=== PATIENT | female | born 1940 | race Caucasian/White ===

== ENCOUNTER 2025-01-17 17:54 | Emergency (ER) | payer MEDICARE, SELFPAY ==
[2025-01-17 17:55] VITALS: BP 151/77; PULSE 89; RESP 16; TEMP 37; O2SAT 100
[2025-01-17 17:59] VITALS: BP 151/77; PULSE 89; RESP 16; TEMP 37; O2SAT 100
--- NOTE | 2025-01-17 18:07 | CT_ITS ---
EXAM: BRAIN/HEAD WITHOUT CONTRAST CLINICAL HISTORY: Confusion COMPARISON: None. TECHNIQUE: Noncontrast images of the head with multiplanar reconstructions. Dose reduction techniques were used including intermediate exposure control (AEC),iterative reconstruction technique, and/or mA and/or KV dose adjustments based on patient's size. FINDINGS: CT HEAD FINDINGS: No acute intracranial hemorrhage, mass, mass effect, midline shift or pathologic extra-axial fluid collection. Nonspecific periventricular white matter changes are noted No hydrocephalus. Age- appropriate cerebral volume and white matter. Visualized paranasal sinuses and mastoid air cells are clear. The calvarium is grossly intact. CT/Brain/Head without Contrast IMPRESSION: 1. No acute intracranial abnormality. 2. Age-appropriate volume loss and remote small vessel ischemic changes Reading Location: [facility]
--- NOTE | 2025-01-17 18:37 | EX.ED.DYSGE1 ---
HPI <ANA Chang - Last Filed: 01/17/25 19:39> History of Present Illness Chief Complaint: Confusion Narrative Narrative: Patient is an 84-year-old female with history of chronic back pain, hypertension who does self cath herself 3-4 times per day. Patient is been doing this for greater than 6 years. Patient's daughter thought the patient was more confused today, was more agitated, and they are concerned for a UTI. Patient denies any specific pain, denies any fever chills nausea or vomiting. PFSH <ANA Chang - Last Filed: 01/17/25 19:39> [facility] Medical History (Updated 01/17/25 @ 19:37 by ANA Chang) Self-catheterizes urinary bladder Hypertension Back pain Home Medications ?Medication ?Instructions ?Recorded ?Last Taken ?Type cephalexin 500 mg capsule 500 mg PO TID 7 days #21 caps 01/17/25 Unknown Rx Allergy/AdvReac Type Severity Reaction Status Date / Time No Known Allergies Allergy Verified 01/17/25 17:55 Social History Smoking Status: Unknown if ever smoked ROS <ANA Chang - Last Filed: 01/17/25 19:39> ROS ED ROS Narrative Constitutional: Negative for fever, chills, weight loss, weakness Eyes: Negative for vision loss, vision change, double vision ENT: Negative for any sore throat, ear pain, congestion Cardiovascular: Negative for any chest pain, tightness, palpitations Respiratory: Negative for any cough, sputum production, hemoptysis, dyspnea, dyspnea on exertion, orthopnea Gastrointestinal: Negative for any abdominal pain, nausea, vomiting, diarrhea, constipation, blood in stool, blood in vomit : Negative for any urinary frequency, dysuria, retention, blood in urine Muscle skeletal: Negative for any neck pain, back pain Neurological: Negative for any headache, syncope, dizziness. Positive for more confusion Skin: Negative for any rashes, itching, abrasions, lacerations Psychiatric: Negative for any depression, anxiety, stress, suicidal ideation, homicidal ideation Hematologic: Negative for any excessive bruising, easy bleeding EXAM <ANA Chang - Last Filed: 01/17/25 19:39> Physical Exam Narrative Exam Narrative: Vital signs reviewed. Patient is alert orient x 4, patient is in no distress. HEET: Head normocephalic atraumatic, TMs clear bilaterally. Posterior pharynx is clear, moist mucous membranes. Nares clear bilaterally. Neck: Supple with no lymphadenopathy or tenderness. No signs of meningismus. Cardiac: Regular rate and rhythm no murmurs gallops or rubs, equal peripheral pulses bilaterally. Respiratory: Lungs clear to auscultation bilaterally. No chest tenderness. Abdomen: Soft, nontender, nondistended. No abdominal bruit or pulsatile masses. No hepatosplenomegaly Extremities: No peripheral edema, no signs of gross trauma or deformity. Active full range of motion of all extremities. Neuro: Cranial nerves II through XII intact, no focal neurological deficits. NIH stroke scale 0 Skin: Clean dry and intact with no rash, purpura, petechiae, vesicles or pustules. Backs/flank: No CVA tenderness, no midline spinal tenderness, no deformity. Psych: Normal mood and affect. No SI, HI or acute psychosis. Const Vital Signs: 01/17/25 17:55 01/17/25 17:59 01/17/25 18:59 Temperature 98.6 F 98.6 F 98.6 F Temperature Source Oral Oral Oral Pulse Rate 89 89 83 Respiratory Rate 16 16 16 Blood Pressure 151/77 H 151/77 H 145/65 H Blood Pressure Mean 101 101 91 Pulse Ox 100 100 97 Oxygen Delivery Method Room Air Room Air Room Air <Dr. Vadim Florence DO - Last Filed: 01/17/25 19:55> Physical Exam Const Vital Signs: 01/17/25 17:55 01/17/25 17:59 01/17/25 18:59 Temperature 98.6 F 98.6 F 98.6 F Temperature Source Oral Oral Oral Pulse Rate 89 89 83 Respiratory Rate 16 16 16 Blood Pressure 151/77 H 151/77 H 145/65 H Blood Pressure Mean 101 101 91 Pulse Ox 100 100 97 Oxygen Delivery Method Room Air Room Air Room Air [facility] <ANA Chang - Last Filed: 01/17/25 19:39> [facility] Lab Data Labs: Laboratory Results - last 24 hr 01/17/25 01/17/25 18:35 18:57 WBC 13.0 H RBC 4.11 L Hgb 12.3 Hct 35.9 L MCV 87.3 MCH 29.9 MCHC 34.3 RDW Std Deviation 42.1 RDW Coeff of Leslie 13.3 Plt Count 169 MPV 10.5 Immature Gran % (Auto) 0.400 Neut % (Auto) 79.1 H Lymph % (Auto) 11.0 L King % (Auto) 8.1 Eos % (Auto) 1.0 Baso % (Auto) 0.4 Absolute Neuts (auto) 10.3 H Absolute Lymphs (auto) 1.42 Nucleated RBC % 0 Sodium 140 Potassium 3.9 Chloride Direct 103 Carbon Dioxide 25.5 Anion Gap 12 BUN 19 Creatinine 0.92 Est GFR (MDRD) Non-Af 61 BUN/Creatinine Ratio 20.5 H Glucose 113 H Calcium 9.7 Total Bilirubin 1.24 AST 19 ALT 9 Alkaline Phosphatase 75 Total Protein 7.2 Albumin 4.2 Globulin 3.0 Albumin/Globulin Ratio 1.4 Urine Color Yellow Urine Clarity Sl. Cloudy Urine pH 6.5 Ur Specific [place] 1.015 Urine Protein Negative Urine Glucose (UA) Normal Urine Ketones Negative Urine Occult Blood 25 H Urine Nitrite Positive H Urine Bilirubin Negative Urine Urobilinogen 4 H Ur Leukocyte Esterase 25 H Urine RBC 0-5 SEEN Urine WBC 0-5 SEEN Ur Squamous Epith Cells 0-5 SEEN Amorphous Sediment 1+ URATE Urine Bacteria 3+ Urine Mucus 0 SEEN Radiography Diagnostic Testing: Clinical Impression(s) from Imaging Studies Brain CT 01/17/25 18:07 IMPRESSION: 1. No acute intracranial abnormality. 2. Age-appropriate volume loss and remote small vessel ischemic changes [facility] Treatment and Re-Evaluation :: Differential diagnosis includes however is not limited to: UTI, electrolyte abnormality, dehydration, CVA, dehydration, COVID-19 influenza RSV Patient appears generally well, vital signs are stable, patient is nontoxic-appearing. Presenting to the emergency department with daughter for concern of confusion, more slow to respond today. Patient will receive a CT scan of the brain, patient will receive a urinalysis, patient does straight cath throughout the day, so she will be straight cathed here. Patient was given COVID-19 influenza RSV, basic laboratory values. All radiologic examinations were read, reviewed by the emergency department attending. From these reads, a plan of care will be put in place. patient's laboratory values shows a slight leukocytosis with a white blood count of 13.0. Patient's chemistries were unremarkable. Patient's COVID-19 influenza [address] negative[address] scan of the brain was negative. Urinalysis was positive for infection with 3+ bacteria 25 leukocytes, positive nitrites. This will be sent for culture. Patient replaced on Keflex 3 times a day for 7 days. Instructed to maintain hydration, and to return for any worsening back pain fever chills nausea or vomiting. Stable for discharge <Dr. Vadim Florence, DO - Last Filed: 01/17/25 19:55> [facility] Narrative Medical decision making narrative: I have personally performed a face to face assessment of the patient and have reviewed the LEONCIO Note. I performed a substantive portion of the visit including all aspects of the following. My morales findings include: History: Patient presents with confusion that became worse today. Family states patient is more confused than usual today. Family states patient has had similar episodes of confusion with urinary tract infections. Patient self caths herself 3-4 times daily. Patient admits to a decreased appetite. Patient denies any fevers or chills. Patient denies any nausea or vomiting. Patient denies any back pain. Patient denies any burning when she self cath. Exam: Vital signs are stable. Patient is afebrile. Patient is in no acute distress. Cranial nerves II through XII are intact. Strength is 5/5 bilaterally upper and lower extremities. There are no sensory deficits noted. Oral mucosa is pink and moist. Neck is supple. Trachea is midline. There is no JVD. Heart was regular rate and rhythm. Lungs are clear and equal bilaterally. Abdomen is soft. Bowel sounds are normal. There is some mild suprapubic tenderness. There is no rebound or guarding noted. Medical Decision Making: Differential diagnosis includes urinary tract infection, pyelonephritis, viral illness, intracranial bleeding, and stroke. CBC will be obtained to assess for leukocytosis and anemia. Comprehensive metabolic profile will be obtained to assess for hepatic function, renal function, and electrolyte abnormality. Urinalysis will be obtained to assess for urinary tract infection and hematuria. COVID-19, influenza, and RSV PCR will be obtained to assess for viral illness. CT scan of the brain will be obtained to assess for stroke and intracranial bleeding. CBC was reviewed. There is a slight leukocytosis of 13.0. The remainder is within normal limits. Comprehensive metabolic profile was reviewed and was essentially within normal limits. COVID-19 PCR was reviewed and was negative. Influenza PCR was reviewed and was negative for influenza A and influenza B. RSV PCR was reviewed and was negative. Urinalysis was reviewed. There are positive nitrites and 3+ bacteria. Leukocyte esterase was 25. There are 05 white blood cells. Urine culture was obtained. Patient will be treated with Keflex for possible urinary tract infection. CT scan of the brain was obtained. There is no acute intracranial abnormality. There are chronic changes noted. This was interpreted by the radiologist and was also independently reviewed by myself. Patient was instructed to follow-up with her primary care physician in 5 to 7 days. Patient and family understood and were agreeable with the plan. All questions were answered. Lab Data Labs: Laboratory Results - last 24 hr 01/17/25 01/17/25 18:35 18:57 WBC 13.0 H RBC 4.11 L Hgb 12.3 Hct 35.9 L MCV 87.3 MCH 29.9 MCHC 34.3 RDW Std Deviation 42.1 RDW Coeff of Leslie 13.3 Plt Count 169 MPV 10.5 Immature Gran % (Auto) 0.400 Neut % (Auto) 79.1 H Lymph % (Auto) 11.0 L King % (Auto) 8.1 Eos % (Auto) 1.0 Baso % (Auto) 0.4 Absolute Neuts (auto) 10.3 H Absolute Lymphs (auto) 1.42 Nucleated RBC % 0 Sodium 140 Potassium 3.9 Chloride Direct 103 Carbon Dioxide 25.5 Anion Gap 12 BUN 19 Creatinine 0.92 Est GFR (MDRD) Non-Af 61 BUN/Creatinine Ratio 20.5 H Glucose 113 H Calcium 9.7 Total Bilirubin 1.24 AST 19 ALT 9 Alkaline Phosphatase 75 Total Protein 7.2 Albumin 4.2 Globulin 3.0 Albumin/Globulin Ratio 1.4 Urine Color Yellow Urine Clarity Sl. Cloudy Urine pH 6.5 Ur Specific [place] 1.015 Urine Protein Negative Urine Glucose (UA) Normal Urine Ketones Negative Urine Occult Blood 25 H Urine Nitrite Positive H Urine Bilirubin Negative Urine Urobilinogen 4 H Ur Leukocyte Esterase 25 H Urine RBC 0-5 SEEN Urine WBC 0-5 SEEN Ur Squamous Epith Cells 0-5 SEEN Amorphous Sediment 1+ URATE Urine Bacteria 3+ Urine Mucus 0 SEEN Radiography Diagnostic Testing: Clinical Impression(s) from Imaging Studies Brain CT 01/17/25 18:07 IMPRESSION: 1. No acute intracranial abnormality. 2. Age-appropriate volume loss and remote small vessel ischemic changes Reading Location: [facility] Discharge Plan Triage Chief Complaint: Confusion Other Complaint: Complaint ED Midlevel Provider: Dominik Galvan ED Provider: Vadim Florence Dx/Rx/DC Orders Clinical Impression: Acute UTI Instructions: Urinary Tract Infections in Women Prescriptions: New cephalexin 500 mg capsule 500 mg PO TID 7 Days Qty: 21 0RF Primary Care Provider: Anaid Luna Referrals: NOT,DEFINED [Non-Staff] - Activity Restrictions/Additional Instructions: Take the antibiotics until finished. Return for any back pain, fever chills nausea vomiting Print Language: Korean Disposition Disposition: Home, Self Care
[2025-01-17 18:42] LABS: Absolute Lymphocyte Count 1.42 X10^3/uL (0.83-4.51); Absolute Neutrophil Count 10.3 X10^3/uL (2.0-7.7); Basophil# 0.05 X10^3/uL; Basophil% 0.4 % (0-1); Eosinophil# 0.13 X10^3/uL; Hematocrit 35.9 % (37-47); Hemoglobin 12.3 g/dL (12.0-15.0); Lymphocyte # 1.42 X10^3/ul (0.83-4.51); Mean Corp Hgb Conc 34.3 g/dL (32-36); Mean Corpuscular Hgb 29.9 pg (27.0-32.0); Mean Corpuscular Volume 87.3 fL (81-99); Mean Platelet Vol. 10.5 fl (6.2-12.0); Monocyte# 1.05 X10^3/uL; Monocyte% 8.1 % (0-10); NRBC Flagged by Analyzer 0 % (0-5); Neutrophil # 10.25 X10^3/uL (2.7-7.7); Neutrophil % 79.1 % (47-70); Platelet Count 169 K/mm3 (150-450); RBC Distribution Width CV 13.3 % (11.6-14.6); RBC Distribution Width SD 42.1 fl (35.1-43.9); Red Blood Count 4.11 M/mm3 (4.2-5.4)
[2025-01-17 18:59] VITALS: BP 145/65; PULSE 83; RESP 16; TEMP 37; O2SAT 97
[2025-01-17 19:02] LABS: Mucous, Urine 0 SEEN /hpf (<or=2+)
[2025-01-17 19:06] LABS: Color, Urine Yellow (Yellow); Glucose, Dipstick Normal (Normal); Ketone-Dipstick Negative (Negative); Leukocyte Esterase-Dipstick 25 /ul (Negative); Nitrite-Dipstick Positive (Negative); Occult Blood-Urine 25 /ul (Negative); Protein-Dipstick Negative (Negative); Specific Gravity, Urine 1.015 (1.002-1.030); Urine Bilirubin Dipstick Negative (Negative); Urine Clarity Sl. Cloudy (Clear); Urine Urobilinogen 4 mg/dl (Normal); Urine pH 6.5 (5.0 - 8.0)
[2025-01-17 19:25] LABS: Amorphous Sediment 1+ URATE; Bacteria 3+ /hpf (None Seen); Red Blood Cells-Urine 0-5 SEEN /hpf (0-5); Squamous Epithelial Cells - UA 0-5 SEEN /hpf (5-10); White Blood Cells 0-5 SEEN /hpf (0-5)
[2025-01-17 19:32] LABS: ALB/GLOB Ratio 1.4 RATIO (0.9-2.4); AST(SGOT) 19 U/L (<=31); Alanine Aminotransfer ALT/SGPT 9 U/L (<=34); Albumin, Serum 4.2 g/dL (3.4-4.8); Alkaline Phosphatase 75 U/L (35-104); Anion Gap 12 (5-15); BUN 19 mg/dL (4-19); BUN/Creat Ratio 20.5 RATIO (10-20); Calcium 9.7 mg/dL (7.6-11.0); Carbon Dioxide 25.5 mmol/L (22.0-29.0); Chloride 103 mmol/L (96-108); Creatinine, Serum 0.92 mg/dL (0.70-1.20); EST Glomerular Filtration Rate 61 (>60); Glucose 113 mg/dL (70-99); Potassium 3.9 mmol/L (3.3-5.1); Protein, Total 7.2 g/dL (5.9-8.4); Sodium Level 140 mmol/L (133-145); Total Bilirubin 1.24 mg/dL (0.00-1.30)
[2025-01-17] MEDS: Cephalexin 250 MG Capsule 500 MG PO (19:50)
[2025-01-17 19:54] VITALS: BP 146/69; PULSE 77; RESP 19; TEMP 36.7; O2SAT 98
== END 2025-01-17 19:56 | disposition home or self-care (01) ==
PROVIDERS: Nurse Practitioner; Emergency Provider Emergency Medicine; PCP Internal Medicine; Visit Provider Emergency Medicine
DX: N39.0 Urinary tract infection, site not specified (principal)
CPT/HCPCS: 70450; 80053; 81001; 85025; 87077; 87086; 87088; 87186; 87631; 99284; P9612; A4216

== ENCOUNTER 2025-03-01 11:24 | Inpatient (IN) | payer MEDICARE, SELFPAY ==
[2025-03-01 11:25] VITALS: BP 166/77; PULSE 67; RESP 16; TEMP 37.2; O2SAT 99; BMI 25.7
--- NOTE | 2025-03-01 11:41 | RAD_ITS ---
PROCEDURE: HIP, UNI W/ PELVIS 2-3 VIEWS 03/01/2025 REASON FOR EXAM: INJURY TECHNIQUE: 2 views of the left hip with AP pelvis COMPARISON: None. FINDINGS: Bones: Acute intertrochanteric fracture of the left femur, with mild foreshortening and impaction. Joints: No obvious intra-articular extension of the left hip fracture. 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 Mild bilateral hip joint arthrosis. Soft tissues: Soft tissue swelling. Other: Degenerative changes of the lumbar spine. RAD/HIP, UNI W/ Pelvis 2-3 Views IMPRESSION: Acute intertrochanteric fracture of the left femur. Reading Location: [id number]
--- NOTE | 2025-03-01 11:41 | RAD_ITS ---
PROCEDURE: KNEE 1 OR 2 VIEWS 03/01/2025 REASON FOR EXAM: INJURY TECHNIQUE: 2 view(s) of the left knee COMPARISON: None. FINDINGS: Bones: Acute fracture deformity of the left lateral femoral condyle, with mild displacement. Joints: No intra-articular involvement of the fracture fragment. Moderate degenerative joint changes. Effusion: Small joint effusion. Soft tissues: Soft tissues are unremarkable. Other: Vascular calcifications. RAD/Knee 1 or 2 Views IMPRESSION: Acute fracture of the left lateral femoral condyle. Reading Location: [id number]
--- NOTE | 2025-03-01 11:51 | ED.VIS.FALL ---
HPI HPI - Fall History of Present Illness Chief Complaint: Fall Informant: patient and EMS Narrative Narrative: 84-year-old female presenting to the emergency room with left knee injury. Patient states she was sitting on the side of the bed when she fell off injuring the left knee. She notes prior right knee surgery. She does not know if they replaced it or not. That was apparently in 2014 in [facility]. Patient reportedly just moved to the area. She denies any other injuries. She states that she cannot really move the knee. Patient is very tearful upset about bothering her children and over her late . There is a report of the degree of dementia that is reported to me. [facility] Medical History (Updated 03/01/25 @ 13:[address] Roro Long, DO) Hypothyroidism Anxiety Dementia Self-catheterizes urinary bladder Hypertension Back pain Home Medications ?Medication ?Instructions ?Recorded ?Last Taken ?Type ascorbic acid (vitamin C) 500 mg 500 mg PO DAILY 03/01/25 02/28/25 History tablet (C-500) clonazepam 0.5 mg tablet 0.5 mg PO TID PRN anxiety 03/01/25 03/01/25 History donepezil 10 mg tablet 10 mg PO DAILY 03/01/25 03/01/25 History escitalopram oxalate 20 mg tablet 20 mg PO DAILY 03/01/25 02/28/25 History levothyroxine 50 mcg tablet 50 mcg PO DAILY 03/01/25 03/01/25 History trazodone 50 mg tablet 50 mg PO QHS 03/01/25 02/28/25 History Allergy/AdvReac Type Severity Reaction Status Date / Time No Known Allergies Allergy Verified 03/01/25 11:27 Social History Smoking Status: Unknown if ever smoked ROS [facility] ED Constitutional Constitutional ED: Denies chills or weight loss Eyes Eyes: Denies change in vision or diplopia ENT ENT ED: Denies ear pain, rhinorrhea or sore throat Cardiovascular Cardiovascular: Denies chest pain, orthopnea, palpitations or racing heartbeat Respiratory/Chest Respiratory/Chest: Denies cough, dyspnea or orthopnea Gastrointestinal Gastrointestinal: Denies abdominal pain, diarrhea, nausea or vomiting Genitourinary Genitourinary ED: Denies dysuria, hematuria or urinary frequency Musculoskeletal Musculoskeletal: Reports other Details: Left knee pain ; Denies arthralgias, back pain, myalgias or neck pain Integumentary Denies abscess or rash Neurologic Neurologic: Denies headache(s), paresthesias or weakness Psychiatric Psychiatric: Denies anxiety, depression, suicidal ideation or suicidal thoughts Endocrine Endocrinology: Denies polydipsia, polyphagia or polyuria Allergic/Immunologic Allergic/Immunologic ED: Denies mouth swelling, tongue swelling or urticaria EXAM Physical Exam Const Vital Signs: 03/01/25 11:25 03/01/25 11:28 03/01/25 12:26 Temperature 99 F 97.6 F L Temperature Source Oral Pulse Rate 67 67 Respiratory Rate 16 22 H Respiratory Effort Normal Blood Pressure 166/77 H 165/66 H Blood Pressure Mean 106 99 Pulse Ox 99 99 Oxygen Delivery Method Room Air 03/01/25 13:19 Temperature Temperature Source Pulse Rate 60 Respiratory Rate 21 H Respiratory Effort Blood Pressure 145/59 H Blood Pressure Mean 87 Pulse Ox 98 Oxygen Delivery Method Room Air Positive well nourished and well developed General Appearance ED: well developed HEENT Reports normocephalic, head/scalp atraumatic and moist mucous membranes Eyes PERRL and EOMs intact bilaterally Neck no lymphadenopathy, supple and no JVD Resp normal respiratory effort and clear to auscultation bilaterally Cardio regular rate, regular rhythm and no murmurs GI normal to inspection, nondistended, normoactive bowel sounds and non-tender Palpation: soft Back/Spine no CVA tenderness and normal ROM Extremity Extremity Narrative: The left leg appears shortened compared to the right. She has pain with logroll in the left inguinal region. I do not appreciate any significant knee swelling. Patient guards the knee. She will not lift the leg up off the bed. I do not appreciate contusion ecchymosis or abrasions. She is able to contract the quadriceps. General Extremety ED: Negative for edema General Extremity: Negative for edema Neuro oriented x3 and CN's II-XII intact bilaterally Sensorium / Orientation: alert Motor Exam: strength 5/5 throughout Psych Mood & Affect: depressed and tearful Skin no rashes or lesions noted and no wounds MDM MDM MDM Narrative Medical decision making narrative: Differential diagnosis includes but not limited to hip fracture pelvic fracture knee fracture femur fracture contusion sprain strain My independent interpretation of plain films of the left hip and pelvis is acute intertrochanteric hip fracture. My independent interpretation of the plain films of the left knee is possible lateral femoral condyle fracture. May have been interpretation of the chest x-ray is no acute process. Case was discussed with on-call orthopedics. CT of the knee will be obtained. CT of the brain will also be obtained. These were read by radiology reviewed by myself. She will be placed in a knee immobilizer at request of orthopedics. She has received pain and nausea medication. Medication list will be updated. She is not on any blood thinners. She plan of care will be admission to the hospital for surgery. History & Record Review Discussion w/independent historian: EMS personnel, Patient and Family Lab Data Attestation: I reviewed the patient's lab results. Labs: Laboratory Results - last 24 hr 03/01/25 12:15 WBC 18.8 H RBC 4.28 Hgb 13.0 Hct 37.3 MCV 87.1 MCH 30.4 MCHC 34.9 RDW Std Deviation 40.5 RDW Coeff of Leslie 12.9 Plt Count 239 MPV 10.3 Immature Gran % (Auto) 0.600 Neut % (Auto) 92.1 H Lymph % (Auto) 3.3 L [place] % (Auto) 3.8 Eos % (Auto) 0.0 Baso % (Auto) 0.2 Absolute Neuts (auto) 17.3 H Absolute Lymphs (auto) 0.63 L Nucleated RBC % 0 PT 14.9 INR 1.1 APTT 25.8 Sodium 140 Potassium 4.2 Chloride 104 Carbon Dioxide 25.2 Anion Gap 11 BUN 16 Creatinine 0.90 Estim Creat Clear Calc 37.62 L Est GFR (MDRD) Non-Af 63 BUN/Creatinine Ratio 17.4 Glucose 148 H Calcium 9.2 Blood Type B POSITIVE Antibody Screen NEGATIVE Radiography Diagnostic Testing: Clinical Impression(s) from Imaging Studies Hip/Pelvis X-Ray 03/01/25 11:41 IMPRESSION: Acute intertrochanteric fracture of the left femur. Reading Location: [facility] Knee X-Ray 03/01/25 11:41 IMPRESSION: Acute fracture of the left lateral femoral condyle. Reading Location: [facility] Brain CT 03/01/25 12:42 IMPRESSION: 1. No acute intracranial finding. 2. Findings of chronic microvascular ischemic changes and age-related changes. Reading Location: [facility] Lower Extremity CT 03/01/25 12:42 IMPRESSION: No acute osseous fracture. The previously visualized osseous fragment along the distal lateral left femoral condyle is secondary to diffuse bone lucency and probable nutrient channel. Reading Location: [facility] EKG Initial EKG: Attestation: I personally reviewed and interpreted this EKG as follows: Comments: Sinus rhythm ventricular rate 65 bpm Management Discussion w/another healthcare provider: Hospitalist, Spot Machine Operator (Dr Rosas) and drug department worker/Case management Discharge Plan Dx/Rx/DC Orders Clinical Impression: Fall, Closed intertrochanteric fracture of left hip, Acute pain of left knee Disposition Disposition: Acute Care Hospital [facility]
[2025-03-01] MEDS: Ondansetron 4 MG/2 ML Vial IV (12:01)
[2025-03-01] MEDS: Morphine 4 MG/ML Syringe IV (12:02)
--- NOTE | 2025-03-01 12:08 | EKG12_ITS ---
Test Reason : PRE-OP Blood Pressure : */* mmHG Vent. Rate : 65 BPM Atrial Rate : 65 BPM P-R Int : 186 ms QRS Dur : 80 ms QT Int : 440 ms P-R-T Axes : 57 -18 14 degrees QTcB Int : 457 ms Normal sinus rhythm Moderate voltage criteria for LVH, may be normal variant ( R in aVL , [place] product ) Borderline ECG Confirmed by Scott Santizo ([id number]), non linear editor NICKOLAS PALOMARES ([id number]) on 03/02/2025 1:19:11 PM Referred By: Confirmed By: Scott Santizo
[2025-03-01 12:26] VITALS: BP 165/66; PULSE 67; RESP 22; TEMP 36.4; O2SAT 99
[2025-03-01 12:42] LABS: International Normalized Ratio 1.1; Partial Thromboplast Time 25.8 Seconds (24.1-36.2); Prothrombin Time (Protime)PT. 14.9 SECONDS (11.7-14.9)
--- NOTE | 2025-03-01 12:42 | CT_ITS ---
PROCEDURE: EXTREMITY LOWER WITHOUT CONTRA 03/01/2025 REASON FOR EXAM: PAIN TECHNIQUE: Axial CT images of the left lower extremity obtained without intravenous contrast. Coronal and Sagittal reconstruction series were provided. One or more dose reduction techniques were used (e.g., Automated exposure control, adjustment of the mA and/or kV according to patient size, use of iterative reconstruction technique RADIATION DOSE SUMMARY: CTDlvol: 15 mGy DLP: 420 mGycm COMPARISON: Same day left knee radiographs. FINDINGS: Bones: Diffuse osseous demineralization. No acute osseous fracture. The previously visualized osseous fragment along the distal lateral left femoral condyle is secondary to diffuse bone lucency and probable nutrient channel. No aggressive osseous lesions. Partially visualized orthopedic hardware within the right patella. Joints: Moderate left knee joint arthrosis. No traumatic dislocation. Soft Tissues: Vascular calcifications. Diffuse muscular atrophy. No subcutaneous hematoma or edema. CT/Extremity Lower without Contra IMPRESSION: No acute osseous fracture. The previously visualized osseous fragment along the distal lateral left femoral condyle is secondary to diffuse bone lucency and probable nutrient channel. Reading Location: [id number]
--- NOTE | 2025-03-01 12:42 | CT_ITS ---
EXAM: BRAIN/HEAD WITHOUT CONTRAST CLINICAL HISTORY: 84 y/o F with INJURY. COMPARISON: CT head 01/17/2025. TECHNIQUE: Routine CT imaging of the head without IV contrast. Additional multiplanar reformats were obtained. Dose reduction techniques were used including intermediate exposure control (AEC),iterative reconstruction technique, and/or mA and/or KV dose adjustments based on patient's size. FINDINGS: Moderate generalized cerebral and cerebellar volume loss with concordant prominence of the ventricles and subarachnoid spaces. Moderate patchy supratentorial white matter hypodensities. The murray-white matter interfaces are otherwise maintained. No acute intracranial hemorrhage or herniation. The orbits, visualized paranasal sinuses and mastoids are unremarkable. No calvarial fracture or scalp hematoma. CT/Brain/Head without Contrast IMPRESSION: 1. No acute intracranial finding. 2. Findings of chronic microvascular ischemic changes and age-related changes. Reading Location: [id number]
[2025-03-01 12:52] LABS: Absolute Lymphocyte Count 0.63 X10^3/uL (0.83-4.51); Absolute Neutrophil Count 17.3 X10^3/uL (2.0-7.7); Anion Gap 11 (5-15); BUN 16 mg/dL (4-19); BUN/Creat Ratio 17.4 RATIO (10-20); Basophil# 0.04 X10^3/uL; Basophil% 0.2 % (0-1); Calcium,Total 9.2 mg/dL (7.6-11.0); Carbon Dioxide 25.2 mmol/L (21.0-32.0); Chloride 104 mmol/L (98-108); EST Glomerular Filtration Rate 63 (>60); Estimated Creatinine Clearance 37.62 ml/min (50-250); Glucose 148 mg/dL (70-99); Hematocrit 37.3 % (37-47); Lymphocyte # 0.63 X10^3/ul (0.83-4.51); Lymphocyte % 3.3 % (19-41); Mean Corp Hgb Conc 34.9 g/dL (32-36); Mean Corpuscular Hgb 30.4 pg (27.0-32.0); Mean Corpuscular Volume 87.1 fL (81-99); Mean Platelet Vol. 10.3 fl (6.2-12.0); Monocyte# 0.72 X10^3/uL; Monocyte% 3.8 % (0-10); NRBC Flagged by Analyzer 0 % (0-5); Neutrophil # 17.32 X10^3/uL (2.7-7.7); Neutrophil % 92.1 % (47-70); Platelet Count 239 K/mm3 (150-450); Potassium 4.2 mmol/L (3.3-5.1); RBC Distribution Width CV 12.9 % (11.6-14.6); RBC Distribution Width SD 40.5 fl (35.1-43.9); Red Blood Count 4.28 M/mm3 (4.2-5.4); Sodium Level 140 mmol/L (133-145); White Blood Count 18.8 K/mm3 (4.4-11.0)
[2025-03-01 13:19] VITALS: BP 145/59; PULSE 60; RESP 21; O2SAT 98
--- NOTE | 2025-03-01 13:40 | CASEMGMT ---
Care Management Face to Face with patient for initial transition planning/care coordination assessment in the ED.? This typewriter tester introduced self and role at [facility]. Patient alert and partially oriented. (oriented to self, month, day and place but not year.? Patient stated it was 2026. Patient willing to participate in assessment and is able to answer all questions appropriately.? Care providers, pharmacy, and demographics verified. Patient?s daughter/POA, Maribeth, was also present and at patient?s bedside. Admitting Diagnosis: Acute fracture of left hip and Acute pain of left knee. Other diagnosis history: Including but may not be limited to: Hypothyroidism, Dementia, Self-catheterizes urinary bladder, HTN and back pain. PCP: Dr. Anaid Luna Specialists: Urologist: Dr. Santamaria through [facility], and Geriatric: Dr. Luna Preferred Pharmacy: [facility] Insurance: Medicare: [facility] Prescription Benefit: Yes, through [facility] Living Will/HPOA: ?Yes.? POJitendra was identified as patient?s daughter Maribeth Shin who brought a copy of the paperwork to the hospital to be scanned in. LNOK: Patient is but has 2 living daughters, Maribeth of [place] and Kenia Torres of [facility]. Living Arrangements: Patient resides alone in a one-story apartment. There are no steps leading in/out of patient?s apartment and patient denied any environmental barriers within her apartment. Transportation: Patient?s daughter Maribeth as well as a friend. DME: Rollator, RTS, shower chair, Emergency response device, sounds like with fall detection (unknown provider) and a medication dispenser. HHC: Patient has a nurse that comes out to her apartment monthly to assist with medication management which patient has had since November of this year. Patient and patient?s daughter unable to remember who that service is through. SNF/Rehab: Denied Community Resources: None at this time. Patient previously attended [facility] twice, didn?t care for it and never returned. Behavioral Health History: Depression and Anxiety that is managed with medications. Patient goals: Patient wishes to be discharged from acute to a SNF/Rehab to be able to regain strength and to be able to walk safely and from there, patient expressed a desire to transition to an Assisted Living Facility at [place]. Patient feels as though she needs to be around other people. Patient denies any further needs or concerns at this time. Disposition Plan: admission to acute; RN CM/SW to follow for discharge planning needs that may arise. Ophelia Correa, SAFETY SITTER, SHOE PARTS CASER
--- NOTE | 2025-03-01 13:45 | PCM.HP.STD ---
HPI - General General Date of Admission: 03/01/25 Date of Service: 03/01/25 Chief Complaint: L hip pain after mechanical fall HPI Narrative HARRY ABRAMS, is a 84 F who presented to the emergency department at [facility] on 03/01/2025 with a chief complaint of left leg pain after mechanical fall. Evidently she was sitting on the side of the bed when she slid off fell to the floor injuring her left leg. She initially complained of knee pain, however, while in the emergency department it was delineated that was probably her left hip rather than her knee. Patient just moved to the area recently. She has had previous knee replacement on the left side. It does appear that she has some memory loss and is a poor historian. Vital signs show temperature of 99, heart rate 67, blood pressure 166/77, respiratory rate 16 and pulse ox was 99% on room air. CBC showed a leukocytosis white count of 18.8. Differential was positive for neutrophilia with a neutrophil count of 92.1. Coags were normal. Chemistry panel was unremarkable. Hip and pelvic x-rays showed acute intertrochanteric fracture of the left femur. Left knee x-ray initially showed acute fracture of the left lateral femoral condyle however it was reviewed and a CT was ordered and negative so they felt that what they thought was a fracture was likely a diffuse bone lucency and a nutrient channel. CT of the brain showed findings consistent with chronic microvascular ischemic changes. Chest x-ray showed emphysematous changes and fibrosis but no acute findings. Social work was contacted in the emergency department due to concerns with her memory loss and ongoing social issues and Dr. Rosas was contacted with regards to the fracture. She will be admitted with an expected 2 midnight stay. [facility] Medical History Hypothyroidism Anxiety Dementia Self-catheterizes urinary bladder Hypertension Back pain Home Medications ?Medication ?Instructions ?Recorded ?Last Taken ?Type ascorbic acid (vitamin C) 500 mg 500 mg PO DAILY 03/01/25 02/28/25 History tablet (C-500) clonazepam 0.5 mg tablet 0.5 mg PO TID PRN anxiety 03/01/25 03/01/25 History donepezil 10 mg tablet 10 mg PO DAILY 03/01/25 03/01/25 History escitalopram oxalate 20 mg tablet 20 mg PO DAILY 03/01/25 02/28/25 History levothyroxine 50 mcg tablet 50 mcg PO DAILY 03/01/25 03/01/25 History trazodone 50 mg tablet 50 mg PO QHS 03/01/25 02/28/25 History Allergy/AdvReac Type Severity Reaction Status Date / Time No Known Allergies Allergy Verified 03/01/25 11:27 Family History (Updated 03/01/25 @ 16:[address] Roro Long DO) Other Hypertension Surgical History (Updated 03/01/25 @ 16:[address] Roro Long DO) H/O: hysterectomy Status post right knee replacement Social History (Updated 03/01/25 @ 16:[address] Roro Long DO) household members: none housing: apartment current occupational status: retired other: Daughter lives a few doors down helps her on a regular basis Smoking Status: Never smoker alcohol intake: never substance use type: does not use ROS Constitutional Constitutional: Denies anorexia, change in weight, chills, fatigue, fever(s), malaise, night sweats, weakness or other Eyes Eyes: Denies blurry vision, change in eye color, change in vision, discharge from eye(s), double vision, erythema, eye pain, loss of vision or other ENT HEENT: Denies abnormal hearing, dysphagia, ear pain, epistaxis, headache(s), hearing loss, nasal congestion, nasal discharge, post nasal drip, sinus pressure, sore throat or other Cardiovascular Cardiovascular: Denies chest pain, claudication, dyspnea on exertion, edema, lightheadedness, orthopnea, palpitations, paroxysmal nocturnal dyspnea, rapid heart rate, syncope or other Respiratory/Chest Respiratory/Chest: Denies cough, dyspnea, excessive phlegm production, hemoptysis, productive cough, shortness of breath at rest, shortness of breath with exertion, wheezing or other Gastrointestinal Gastrointestinal: Denies abdominal pain, coffee ground emesis, constipation, diarrhea, dyspepsia, hematemesis, hematochezia, loose stools, melena, nausea, vomiting or other Genitourinary Genitourinary: Denies burning urination, difficulty urinating, dysuria, hematuria, nocturia, urinary frequency, urinary hesitancy, urinary incontinence, urinary urgency or other Musculoskeletal Musculoskeletal: Reports joint pain and joint swelling; Denies arthralgias, back pain, joint stiffness, myalgias, neck pain or other Neurologic Neurologic: Reports confusion and other Details: Memory impairment Psychiatric Psychiatric: Reports anxiety and depression; Denies homicidal ideation, suicidal ideation or other Endocrine Endocrinology: Denies change in body appearance, cold intolerance, excessive sweating, heat intolerance, polydipsia, polyuria or other Hematologic/Lymphatic Hematologic/Lymphatic: Denies anemia, easy bleeding, easy bruising, lymphadenopathy or other Allergic/Immunologic Allergic/Immunologic: Denies rhinitis, hives, eczemia, asthma or other Vital Signs Vital Signs Vital Signs: 03/01/25 11:25 03/01/25 11:28 03/01/25 12:26 Temperature 99 F 97.6 F L Temperature Source Oral Pulse Rate 67 67 Respiratory Rate 16 22 H Respiratory Effort Normal Blood Pressure 166/77 H 165/66 H Blood Pressure Mean 106 99 Pulse Ox 99 99 Oxygen Delivery Method Room Air 03/01/25 13:19 Temperature Temperature Source Pulse Rate 60 Respiratory Rate 21 H Respiratory Effort Blood Pressure 145/59 H Blood Pressure Mean 87 Pulse Ox 98 Oxygen Delivery Method Room Air Weight Weight: 59.8 kg Body Mass Index (BMI) 25.7 Physical Exam Const alert, no apparent distress, average body habitus and well nourished Constitutional Narrative: Elderly, forgetful, white female, lying in bed, daughter at bedside, patient is thin, does not appear toxic, pleasant, currently looks comfortable General Appearance: cooperative HEENT normocephalic, head/scalp atraumatic, hearing grossly normal bilaterally and moist oral mucous membranes HEENT Narrative: Dentures in place, Mallampati 2, no thrush Resp normal respiratory effort, no retractions, no use of accessory muscles and clear to auscultation bilaterally Auscultation: Negative for rales, rhonchi or wheezes Cardio regular rate, regular rhythm, S1 normal heart sound, S2 normal heart sound, no murmurs, no rub, no gallops and no clicks GI normal to inspection, nondistended, normoactive bowel sounds, soft to palpation and non-tender Extremity no clubbing, cyanosis or edema Extremity Narrative: Pedal pulses are 2+, radial pulses are 2+ bilaterally Neuro oriented x3 and no focal motor deficits Neuro Narrative: Difficulty moving left lower extremity due to pain Speech: speech normal Psych Negative for affect normal Psych Narrative: Affect is flattened patient seems to Mood & Affect: anxious Results Lab / Micro Data 03/01/25 12:15 03/01/25 12:15 Labs: Laboratory Results - last 24 hr 03/01/25 12:15: WBC 18.8 H, RBC 4.28, Hgb 13.0, Hct 37.3, MCV 87.1, MCH 30.4, MCHC 34.9, RDW Std Deviation 40.5, RDW Coeff of Leslie 12.9, Plt Count 239, MPV 10.3, Immature Gran % (Auto) 0.600, Neut % (Auto) 92.1 H, Lymph % (Auto) 3.3 L, Louisa % (Auto) 3.8, Eos % (Auto) 0.0, Baso % (Auto) 0.2, Absolute Neuts (auto) 17.3 H, Absolute Lymphs (auto) 0.63 L, Nucleated RBC % 0, PT 14.9, INR 1.1, APTT 25.8, Sodium 140, Potassium 4.2, Chloride 104, Carbon Dioxide 25.2, Anion Gap 11, BUN 16, Creatinine 0.90, Estim Creat Clear Calc 37.62 L, Est GFR (MDRD) Non-Af 63, BUN/Creatinine Ratio 17.4, Glucose 148 H, Calcium 9.2, Blood Type B POSITIVE, Antibody Screen NEGATIVE Imaging Radiology Impression Hip/Pelvis X-Ray 03/01/25 11:41 IMPRESSION: Acute intertrochanteric fracture of the left femur. Reading Location: [facility] Knee X-Ray 03/01/25 11:41 IMPRESSION: Acute fracture of the left lateral femoral condyle. Reading Location: [facility] Brain CT 03/01/25 12:42 IMPRESSION: 1. No acute intracranial finding. 2. Findings of chronic microvascular ischemic changes and age-related changes. Reading Location: [facility] Lower Extremity CT 03/01/25 12:42 IMPRESSION: No acute osseous fracture. The previously visualized osseous fragment along the distal lateral left femoral condyle is secondary to diffuse bone lucency and probable nutrient channel. Reading Location: [id number] Assessment & Plan Assessment/Plan (1) Closed intertrochanteric fracture of left hip: (2) Fall: (3) Acute pain of left knee: PLAN: Plan Closed intertrochanteric fracture of the left hip -Nonweightbearing for now -ED talk to Dr. Rosas and plan is for OR tomorrow-most likely -Tylenol 1000 mg 3 times daily -Oxycodone 5 mg every 6 hours as needed -As needed Dilaudid for breakthrough -Check vitamin D level -Start DVT prophylaxis with enoxaparin tomorrow evening after surgery and await recommendations for DVT prophylaxis after discharge from orthopedic surgery -Place Lizarraga catheter -Chest x-ray and EKG preoperatively pending -PT/OT consultation for postoperative assessment -Scheduled stool softeners -Orthopedic consultation to Dr. Rosas placed -Case management/social work consultation for likely placement at discharge Mechanical fall -PT/OT consultation Dementia -Will hold donepezil while hospitalized -Continue as needed clonazepam to avoid any withdrawal Hypothyroidism -check TSH -Continue home levothyroxine Anxiety/depression -Continue home trazodone -Continue home Lexapro -Continue clonazepam Insomnia -Continue home trazodone DVT prophylaxis -Enoxaparin 40 subcu daily to start tomorrow evening postoperatively CODE STATUS -DNR CCA okay for short-term intubation--> perioperative full code discussion was had with the patient and daughter and they understand that in the 24-hour period surrounding her surgery she will be a full code temporarily. Charges/Coding Visit Charges Inpatient E&M: 21921 Init Hosp L2
--- NOTE | 2025-03-01 13:59 | RAD_ITS ---
PROCEDURE: CHEST 1 VIEW (PORTABLE) 03/01/2025 REASON FOR EXAM: PREOP TECHNIQUE: Frontal view of the chest. COMPARISON: None. FINDINGS: Hardware: None. Heart: The heart size is normal. Lungs: Findings of emphysema/fibrosis with bibasilar atelectasis/scarring. No focal consolidation, pleural effusion or pneumothorax. Bones: Degenerative changes are identified within the thoracic spine. Chronic left humeral head fracture deformity. RAD/Chest 1 View (Portable) IMPRESSION: Emphysema/fibrosis. No acute findings. Reading Location: [facility]
[2025-03-01 15:09] VITALS: BP 153/71; PULSE 66; RESP 18; TEMP 36.6; O2SAT 96; BMI 24.8
[2025-03-01 16:28] LABS: Vitamin D,25 Hydroxy 29.9 ng/mL (30-100)
[2025-03-01] MEDS: Morphine 2 MG/ML Syringe IV (16:42)
[2025-03-01] MEDS: 0.9% Saline Lock 10 ML Syringe IV (16:43)
[2025-03-01] MEDS: Acetaminophen 500 MG Tablet 1000 MG PO ×2 (16:45→21:10)
[2025-03-01 19:45] VITALS: BP 126/65; PULSE 64; RESP 16; TEMP 36.7; O2SAT 99
--- NOTE | 2025-03-01 20:40 | NURSING ---
Daughter who is Not POA called in and wanted update on pt. She reports there is a family disconnect between the POA and herself. Pt encouraged to call Pt to get update through her. Pt assisted with the phone in her room so she could talk with her daughter.
[2025-03-01] MEDS: Senna/Docusate Sodium 1 Tablet 2 TABLET PO (21:11)
[2025-03-01] MEDS: oxyCODONE 5 MG Tablet PO (22:25)
[2025-03-01] MEDS: Nystatin Powder 15gm Bottle 1 APPLIC TOPICAL (22:25)
[2025-03-01 22:27] VITALS: BMI 25.0
[2025-03-02] VITALS (13 sets, daily range): BP systolic 121–151; BP diastolic 52–76; PULSE 62–114; RESP 14–16; TEMP 36.1–36.7; O2SAT 93–100; BMI 25.0
[2025-03-02] MEDS: Lactated Ringers 1,000 ML 75 ML IV (05:30)
[2025-03-02 05:33] LABS: Absolute Neutrophil Count 9.9 X10^3/uL (2.0-7.7); Basophil# 0.05 X10^3/uL; Basophil% 0.4 % (0-1); Eosinophil# 0.11 X10^3/uL; Eosinophils% 0.9 % (0-5); Hematocrit 33.7 % (37-47); Hemoglobin 11.6 g/dL (12.0-15.0); Lymphocyte % 11.6 % (19-41); Mean Corp Hgb Conc 34.4 g/dL (32-36); Mean Corpuscular Hgb 30.5 pg (27.0-32.0); Mean Corpuscular Volume 88.7 fL (81-99); Mean Platelet Vol. 9.5 fl (6.2-12.0); Monocyte# 1.23 X10^3/uL; Monocyte% 9.5 % (0-10); NRBC Flagged by Analyzer 0 % (0-5); Neutrophil # 9.92 X10^3/uL (2.7-7.7); Neutrophil % 76.7 % (47-70); Platelet Count 203 K/mm3 (150-450); RBC Distribution Width CV 13.2 % (11.6-14.6); RBC Distribution Width SD 42.8 fl (35.1-43.9); White Blood Count 12.9 K/mm3 (4.4-11.0)
[2025-03-02 06:09] LABS: ALB/GLOB Ratio 1.6 RATIO (0.9-2.4); AST(SGOT) 27 U/L (<=31); Alanine Aminotransfer ALT/SGPT 11 U/L (<=34); Albumin, Serum 3.7 g/dL (3.4-4.8); Alkaline Phosphatase 55 U/L (35-104); Anion Gap 9 (5-15); BUN 16 mg/dL (4-19); BUN/Creat Ratio 15.4 RATIO (10-20); Carbon Dioxide 27.7 mmol/L (21.0-32.0); Chloride 103 mmol/L (98-108); Creatinine, Serum 1.06 mg/dL (0.70-1.20); EST Glomerular Filtration Rate 52 (>60); Estimated Creatinine Clearance 31.45 ml/min (50-250); Globulin 2.3 g/dL (2.2-4.2); Glucose 109 mg/dL (70-99); Magnesium 2.2 mg/dL (1.5-2.2); Sodium Level 140 mmol/L (133-145); Total Bilirubin 1.32 mg/dL (0.00-1.30)
[2025-03-02] MEDS: Ondansetron 4 MG/2 ML Vial IV (07:46)
[2025-03-02] MEDS: 0.9% Saline Lock 10 ML Syringe IV (07:46)
[2025-03-02] MEDS: Morphine 2 MG/ML Syringe IV (07:46)
[2025-03-02] MEDS: Levothyroxine 50 MCG Tablet PO (07:48)
--- NOTE | 2025-03-02 08:44 | RAD_ITS ---
PROCEDURE: Intraoperative fluoroscopic services for ORIF of the left intertrochanteric fracture. 03/02/2025 REASON FOR EXAM: ORIF, GAMMA TECHNIQUE: Intraoperative fluoroscopic services provided. 66.9 seconds of fluoroscopy. 11.2 mGy. 8 spot films were obtained. COMPARISON: Prior study dated March 01, 2025. FINDINGS: Intraoperative fluoroscopic services provided for open reduction and internal fixation of the left intertrochanteric fracture using gamma nail and femoral stem. RAD/Hip Min 2 Views (Portable) IMPRESSION: Satisfactory ORIF of the left intertrochanteric fracture. Reading Location: [facility]
--- NOTE | 2025-03-02 10:41 | CASEMGMT ---
Discharge Planning A list of?SNF providers including quality and resource use data and consistent with the patient's preferred geographic region, medical needs, and insurance network was created in [facility] Guide.? This list was provided to the pt. Kandace Martínez, Discharge Planning Asst.
--- NOTE | 2025-03-02 11:00 | OP.PCM_ITS ---
Operative Report (Standard) Operative Information RN Documented Start/Stop Times: Operation Date: 03/02/25 13:15 Case Time Into Pre-Op 03/02/25 10:50
--- NOTE | 2025-03-02 11:00 | PCM.OPRPT ---
Operative Report (Standard) Operative Information Date of Procedure: 03/02/25 Pre-Operative Diagnosis: Left intertrochanteric hip fracture Post-Operative Diagnosis: Left intertrochanteric hip fracture Surgery/Procedure Performed: Left hip cephalomedullary nail roving inspector: No Type of Anesthesia: General RN Documented Start/Stop Times: Operation Date: 03/02/25 13:15 Case Time Into Pre-Op 03/02/25 10:50 Anesthesia Start 03/02/25 11:50 Into Room 03/02/25 11:50 Procedure Start 03/02/25 12:16 Procedure End 03/02/25 12:41 Procedure Start Time: 12:16 Procedure Stop Time: 12:41 Select all DRAINS/GRAFTS/IMPLANTS that apply: Implanted device Implanted device details: Zhane gamma nail 3, 11 mm x 180 mm, 125 degree neck angle. 85 mm lag screw Special Medications: 2 g Ancef Estimated Blood Loss: 300 mL Fluids Replaced: 600 mL crystalloid Specimen collected: No Description of surgery: Brief history operative indications: 84-year-old female who fell in her home yesterday sustained a left intertrochanteric hip fracture after extensive discussion including risk and benefits which include but are not limited to blood loss, PEs, DVTs, neurovascular damage, nonunions, malunions and screw cut out patient has elected to proceed with a left hip cephalo-medullary nail. Procedure: On the date of the procedure the patient's L hip was marked in the preoperative area and patient was taken back to the operating room. Anesthetic was administered and patient was transferred to the table were all bony prominence identified well-padded and the ipsilateral arm was placed across the chest. Patient was then translated down to the perineal post and the operative leg was placed in the boot while the nonoperative leg was lowered and secured. The operative leg was placed in traction and internal rotation and live fluoroscopy was used to verify adequate reduction. The operative leg was then prepped in a sterile fashion with chlorhexidine while the surgeon scrubbed. Upon reentering the room the operative extremity was draped in the standard orthopedic fashion. Skin incision was marked and a timeout was called. Everyone agreed upon the side, the site, the procedure be performed, patient's identity, and antibiotics given. Skin incision was made and the position of the entry guidepin was verified using live fluoroscopy. Once we were satisfied with our position the pin was advanced in the soft tissue protector was placed over the pin. The entry reamer was then advanced into the proximal portion of the femur. A guidewire was placed down the intramedullary canal and fluoroscopy was used to verify that the anterior cortex had not been breached distally as well as satisfactory distal positioning. We then used live fluoroscopy to verify the placement of the nail and a Zhane short gamma 3 by 11 mm 125 degree hip nail was selected. The 12.5 mm reamer was then passed. The nail was then attached to the repeater operator and inserted into the intramedullary canal. The appropriate depth was verified and the skin incision for the lag screw was made. The lag screw guidepin was then placed under live fluoroscopy and when a satisfactory position was obtained the length of the screw was measured and the standard technique to drill for the lag screws was performed. The anti-rotation bar was used. At this time a 85 mm lag screw was selected with its corresponding compression screw. The lag screw was then passed and traction was left off the leg. The compression screw was then passed and the fracture was compressed. The final position of the lag screw was verified under fluoroscopy. Based on the fracture pattern and distal fit of the nail it was determined that no distal lag screw was to be used. Live fluoroscopy was used to verify the position of the interlocking screw and the final position of the hip components. Once we were satisfied with our positioning the wounds were copiously irrigated out with normal saline skin was closed with 2-0 Vicryl and fely for final skin closure. A sterile dressing was placed with Xeroform. Patient was then awakened by anesthesia transferred from the fracture table back to their hospital bed and transferred to the PACU for recovery. Postoperative plan: Patient will be weight-bear as tolerated. Agree with initial DVT prophylaxis in house to be enoxaparin, recommend aspirin 81 mg twice a day for DVT prophylaxis with thigh-high stockings upon discharge. Follow up in the office in 2 weeks. Surgical Findings: Stable reduced hip Complications Complications: No Admit VTE Documentation VTE Present on Admission: No VTE Mechan Device Prophylaxis: SCD's and Thigh High MEJIA Hose VTE Pharm Prophylaxis ordered?: Yes
--- NOTE | 2025-03-02 11:00 | CONS.ORTHO ---
HPI Consult Data Date of Consult: 03/02/25 HPI Narrative Reason for Consultation: Left hip pain HPI Narrative: HARRY ABRAMS, is a 84 F who presents with left hip pain. Patient's daughter is at bedside and is her medical power of immigration attorney. Patient does have memory issues and is a poor historian. She does continue to complain of bilateral knee pain throughout the examination. Patient's daughter notes that last week she was on the phone considering assisted living. Patient gets around with a walker at home and was previously using a cane. She fell getting out of bed yesterday morning and presented emerged part with left leg pain. Imaging was done of the knee showing no definitive fracture however there is evidence of arthritic changes. The hip has an intertrochanteric hip fracture. Patient reports 4 out of 10 pain worse with motion better with immobilization. No numbness and tingling is appreciated. They did place her in a brace because of the knee pain yesterday however did not remove it when imaging was negative. Patient denies any associated numbness tingling distally. Her daughter was at bedside for the entirety of the examination and history gathering and was the primary provider of information. COUNT INCLUDES [facility] Medical History Hypothyroidism Anxiety Dementia Self-catheterizes urinary bladder Hypertension Back pain Home Medications ?Medication ?Instructions ?Recorded ?Last Taken ?Type ascorbic acid (vitamin C) 500 mg 500 mg PO DAILY 03/01/25 02/28/25 History tablet (C-500) clonazepam 0.5 mg tablet 0.5 mg PO TID PRN anxiety 03/01/25 03/01/25 History donepezil 10 mg tablet 10 mg PO DAILY 03/01/25 03/01/25 History escitalopram oxalate 20 mg tablet 20 mg PO DAILY 03/01/25 02/28/25 History levothyroxine 50 mcg tablet 50 mcg PO DAILY 03/01/25 03/01/25 History trazodone 50 mg tablet 50 mg PO QHS 03/01/25 02/28/25 History Allergy/AdvReac Type Severity Reaction Status Date / Time No Known Allergies Allergy Verified 03/01/25 11:27 Family History Other Hypertension Surgical History H/O: hysterectomy Status post right knee replacement Social History household members: none housing: apartment current occupational status: retired other: Daughter lives a few doors down helps her on a regular basis Smoking Status: Never smoker alcohol intake: never substance use type: does not use ROS ROS Narrative 14 point review of systems otherwise negative except what is mentioned in the HPI Vital Signs Vital Signs Vital Signs: 03/01/25 11:25 03/01/25 11:28 03/01/25 12:26 Temperature 99 F 97.6 F L Temperature Source Oral Pulse Rate 67 67 Pulse Strength Respiratory Rate 16 22 H Respiratory Effort Normal Blood Pressure 166/77 H 165/66 H Blood Pressure Mean 106 99 Blood Pressure Source Blood Pressure Position Blood Pressure Location Pulse Ox 99 99 Oxygen Delivery Method Room Air 03/01/25 13:19 03/01/25 15:09 03/01/25 19:45 Temperature 97.9 F 98.1 F Temperature Source Oral Oral Pulse Rate 60 66 64 Pulse Strength Respiratory Rate 21 H 18 16 Respiratory Effort Blood Pressure 145/59 H 153/71 H 126/65 H Blood Pressure Mean 87 98 85 Blood Pressure Source Monitor Monitor Blood Pressure Position Semi-Fowlers Semi-Fowlers Blood Pressure Location Left Arm Left Arm Pulse Ox 98 96 99 Oxygen Delivery Method Room Air Room Air Room Air 03/02/25 03:00 03/02/25 07:25 03/02/25 07:35 Temperature 98.1 F Temperature Source Oral Pulse Rate 64 Pulse Strength Respiratory Rate 16 Respiratory Effort Blood Pressure 133/61 H Blood Pressure Mean 85 Blood Pressure Source Monitor Blood Pressure Position Semi-Fowlers Blood Pressure Location Left Arm Pulse Ox 96 99 Oxygen Delivery Method Room Air Room Air Room Air 03/02/25 07:35 03/02/25 07:36 Temperature 97.5 F L Temperature Source Oral Pulse Rate 62 Pulse Strength Normal (2+) Respiratory Rate 14 Respiratory Effort Blood Pressure 138/60 H Blood Pressure Mean 86 Blood Pressure Source Monitor Blood Pressure Position Semi-Fowlers Blood Pressure Location Left Arm Pulse Ox 100 Oxygen Delivery Method Room Air Weight Weight: 127 lb 3.307 oz Body Mass Index (BMI) 25.0 Physical Exam Const alert and no apparent distress General Appearance: cooperative HEENT normocephalic Eyes PERRL Neck no JVD Resp normal respiratory effort Cardio Cardio Narrative: Regular pulse rate lower extremity GI non-distended Extremity Extremity Narrative: Left lower extremity: Skin clean, dry, and intact. Limb is shortened and externally rotated Motor is intact dorsiflexion, EHL and plantar flexion. Sensation is intact to light touch saphenous, montez,l superficial peroneal, deep peroneal and tibial distributions. Calves are soft and supple. Skin no rashes or lesions noted Neuro moves all extremities Psych Psych Narrative: Confused Medical Records Data Attestation: I reviewed the patient's medical records Lab / Micro Data Attestation: I reviewed the patient's lab results. 03/02/25 05:20 03/02/25 05:20 Labs: Laboratory Results - last 24 hr 03/01/25 12:15: WBC 18.8 H, RBC 4.28, Hgb 13.0, Hct 37.3, MCV 87.1, MCH 30.4, MCHC 34.9, RDW Std Deviation 40.5, RDW Coeff of Leslie 12.9, Plt Count 239, MPV 10.3, Immature Gran % (Auto) 0.600, Neut % (Auto) 92.1 H, Lymph % (Auto) 3.3 L, Swift % (Auto) 3.8, Eos % (Auto) 0.0, Baso % (Auto) 0.2, Absolute Neuts (auto) 17.3 H, Absolute Lymphs (auto) 0.63 L, Nucleated RBC % 0, PT 14.9, INR 1.1, APTT 25.8, Sodium 140, Potassium 4.2, Chloride 104, Carbon Dioxide 25.2, Anion Gap 11, BUN 16, Creatinine 0.90, Estim Creat Clear Calc 37.62 L, Est GFR (MDRD) Non-Af 63, BUN/Creatinine Ratio 17.4, Glucose 148 H, Calcium 9.2, Vitamin D 25-Hydroxy 29.9 L, Blood Type B POSITIVE, Antibody Screen NEGATIVE 03/02/25 05:20: WBC 12.9 H, RBC 3.80 L, Hgb 11.6 L, Hct 33.7 L, MCV 88.7, MCH 30.5, MCHC 34.4, RDW Std Deviation 42.8, RDW Coeff of Leslie 13.2, Plt Count 203, MPV 9.5, Immature Gran % (Auto) 0.900, Neut % (Auto) 76.7 H, Lymph % (Auto) 11.6 L, Swift % (Auto) 9.5, Eos % (Auto) 0.9, Baso % (Auto) 0.4, Absolute Neuts (auto) 9.9 H, Absolute Lymphs (auto) 1.50, Nucleated RBC % 0, Sodium 140, Potassium 4.0, Chloride 103, Carbon Dioxide 27.7, Anion Gap 9, BUN 16, Creatinine 1.06, Estim Creat Clear Calc 31.45 L, Est GFR (MDRD) Non-Af 52 L, BUN/Creatinine Ratio 15.4, Glucose 109 H, Calcium 9.0, Phosphorus 4.0, Magnesium 2.2, Total Bilirubin 1.32 H, AST 27, ALT 11, Alkaline Phosphatase 55, Total Protein 6.0, Albumin 3.7, Globulin 2.3, Albumin/Globulin Ratio 1.6, TSH 1.470 Imaging Radiology Impression Hip/Pelvis X-Ray 03/01/25 11:41 IMPRESSION: Acute intertrochanteric fracture of the left femur. Reading [facility] Knee X-Ray 03/01/25 11:41 IMPRESSION: Acute fracture of the left lateral femoral condyle. Reading Location: [facility] Brain CT 03/01/25 12:42 IMPRESSION: 1. No acute intracranial finding. 2. Findings of chronic microvascular ischemic changes and age-related changes. Reading Location: [facility] Lower Extremity CT 03/01/25 12:42 IMPRESSION: No acute osseous fracture. The previously visualized osseous fragment along the distal lateral left femoral condyle is secondary to diffuse bone lucency and probable nutrient channel. Reading Location: [facility] Chest X-Ray 03/01/25 13:59 IMPRESSION: Emphysema/fibrosis. No acute findings. Reading Location: [facility] Assessment & Plan Assessment/Plan (1) Closed intertrochanteric fracture of left hip: PLAN: Natural history of the disease process was discussed with patient and her family member at bedside. Potential treatment options were discussed and cephalomedullary nail was recommended as appropriate treatment plan. Risk and benefits of the procedure were discussed the patient and her medical power of immigration attorney occluding but not limited to blood loss, DVTs, PEs, nervous damage, general risk of anesthesia loss life. We also discussed nonunion, malunion hardware failures and hardware cut out. Ultimately, at this point operative intervention risks are outweighed by the benefits and this was recommended. Antibiotics were called the operating room. Patient is currently NPO. Patient is cleared by medicine at this time. Will proceed with surgery this afternoon. (2) Acute pain of left knee: PLAN: Patient is evidence of osteoarthritis of the left knee. At this time we will treat her symptomatically. She appears to have chronic complaints of knee pain. Focus of treatment will be on the hip. Discontinue the brace after surgery.
[2025-03-02] MEDS: 0.9% Normal Saline (1000mL) 1,000 ML 15 ML IV (11:09)
--- NOTE | 2025-03-02 11:09 | PCM.PRE.AN2 ---
ASA Classification* ASA Classification ASA Classification: 2 Assessment & Plan Anesthesia* Anesthesia Assessment Anesthesia Assessment: Discussed sedation and/or anesthesia options, risks, benefits, and alternatives with patient/parents/legal guardian/POA. Questions invited. The patient/parents/legal guardian/POA seems to understand and agrees to proceed with anesthesia plan. Reviewed the physical assessment, medical history, allergy history and patient home medications list prior to surgery/procedure/anesthetic and documented any changes. Performed airway and anesthesia risk assessments. Anesthesia Type Anesthesia Type: General Anesthesia Focused Assessment* Temperature: 97.5 F Pulse Rate: 62 Blood Pressure: 138/60 Respiratory Rate: 14 Pulse Ox: 100 Airway Assessment Mouth opens: >3 cm Mallampati Score: II Focused Labs Anesthesia Preop lab: CBC WBC 12.9 K/mm3 (4.4-11.0) H 03/02/25 05:20 03/02/25 RBC 3.80 M/mm3 (4.2-5.4) L 03/02/25 05:20 03/02/25 Hgb 11.6 g/dL (12.0-15.0) L 03/02/25 05:20 03/02/25 Hct 33.7 % (37-47) L 03/02/25 05:20 03/02/25 Plt Count 203 K/mm3 (150-450) 03/02/25 05:20 03/02/25 CHEMISTRY Potassium 4.0 mmol/L (3.3-5.1) 03/02/25 05:20 03/02/25 Sodium 140 mmol/L (133-145) 03/02/25 05:20 03/02/25 Magnesium 2.2 mg/dL (1.5-2.2) 03/02/25 05:20 03/02/25 Phosphorus 4.0 mg/dL (2.7-4.5) 03/02/25 05:20 03/02/25 BUN 16 mg/dL (4-19) 03/02/25 05:20 03/02/25 Creatinine 1.06 mg/dL (0.70-1.20) 03/02/25 05:20 03/02/25 Glucose 109 mg/dL (70-99) H 03/02/25 05:20 03/02/25 TSH 1.470 uIU/mL (0.300-4.200) 03/02/25 05:20 03/02/25 COAG PT 14.9 SECONDS (11.7-14.9) 03/01/25 12:15 03/01/25 Pre-Assessment Diagnosis/Proposed Procedure Planned Operative Procedure(s): ORIF Gamma nail left hip Anesthesia History 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 When Was Last Pacemaker Check QUESTION #4 FULL TEXT: You/Your Family Experience fever (hyperthermia) with Anesthesia Last Oral Intake Last Oral intake: Last Oral Intake NPO since 00:01 03/01/25 22:27 Meds taken in AM with sips of Yes 03/01/25 22:27 water? Meds patient instructed to levothyroxine-07:49 03/01/25 22:27 take am of surgery PONV PONV - dehydrator operator: PONV - dehydrator operator Female HX of Motion Sickness HX of N/V After Surgery Non-Smoker Duration of Surgery greater than 60 minutes Number of Risk Factors PONV Score Height & Weight Height & Weight: Anesthesia: Height & Weight Height 5 ft 03/01/25 15:09 Weight: 57.7 kg 03/02/25 06:00 Body Mass Index (BMI) 25.0 03/02/25 06:00 Respiratory Assessment Respiratory Assessment - dehydrator operator: Respiratory Tract Infection Hx - dehydrator operator Hx Respiratory Tract Infection No 03/01/25 22:27 STOP Sleep Apnea STOP Sleep Apnea - dehydrator operator: STOP Sleep Apnea - dehydrator operator Hx Hypertension No 03/02/25 09:43 Hx Sleep Apnea No 03/01/25 15:09 CPAP BIPAP Do you snore loudly (louder No 03/01/25 15:09 than talking or can be heard Do you often feel tired/ No 03/01/25 15:09 fatigued/ sleepy during daytime? Has anyone observed you stop No 03/01/25 15:09 breathing during sleep? STOP Results Negative 03/01/25 15:09 QUESTION #5 FULL TEXT : Do you snore loudly (louder than talking or can be heard through closed doors)? 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 Specify any problems Hx of Preganancy in last 3 No 03/01/25 15:09 Months Nurse Filling Out Transfusion FEI 03/01/25 15:09 & Questions: Date: 03/01/25 03/01/25 15:09 Time: 15:15 03/01/25 15:09 Patient unable to answer at this time (ie. confused, unrespo /Reproduction History /Reproductive History - dehydrator operator: /Reproductive Hx- dehydrator operator Hx Now No 03/01/25 22:27 Gestational Age (in weeks): EDC: Hx Hx Para Hx Section SAB Active Medications Active Medications: Current Medications Generic Name Dose Route Start Last Admin Trade Name Freq PRN Reason Stop Dose Admin Acetaminophen 1,000 mg 03/01/25 16:00 03/02/25 05:32 Acetaminophen 500 Mg Tablet PO Not Given Q8 GRAY Albuterol Sulfate 2.5 mg 03/01/25 15:09 Albuterol 2.5 Mg/3 Ml Vial.Neb. INHALATION Q2H PRN PRN SOB &/OR WHEEZING Ascorbic Acid 500 mg 03/02/25 10:00 Ascorbic Acid 500 Mg Tablet PO DAILY GRAY Clonazepam 0.5 mg 03/01/25 15:09 Clonazepam 0.5 Mg Tablet PO TID PRN anxiety Enoxaparin Sodium 40 mg 03/02/25 20:00 Enoxaparin 40 Mg/0.4 Ml Syringe SC DAILY [facility] Escitalopram Oxalate 20 mg 03/02/25 10:00 Escitalopram Oxalate 20 Mg Tablet PO DAILY [facility] Hydralazine HCl 10 mg 03/01/25 15:09 Hydralazine 20 Mg/Ml Vial IV Q6H PRN PRN SBP> 160 Protocol Lactated Ringer's 1,000 mls @ 75 mls/hr 03/02/25 05:00 03/02/25 10:49 IV 03/02/25 18:19 0 mls/hr .[id number] GRAY Infusion Sodium Chloride 100 mls @ 15 mls/hr 03/01/25 15:09 IV .Q6H40M PRN Saline Flush Sodium Chloride 1,000 mls @ 15 mls/hr 03/02/25 10:55 IV .Q48H [facility] Levothyroxine Sodium 50 mcg 03/02/25 06:00 03/02/25 07:48 Levothyroxine 50 Mcg Tablet PO 50 mcg DAILY@0600 [facility] Administration Melatonin 3 mg 03/01/25 15:09 Melatonin 3 Mg Tablet PO QHS PRN PRN INSOMNIA Morphine Sulfate 2 - 4 mg 03/01/25 15:09 03/02/25 07:46 Morphine 2 Mg/Ml Syringe IV 2 mg Q3H PRN PRN Administration Pain Score 6-10 Nystatin 1 applic 03/01/25 22:00 03/02/25 10:29 Nystatin Powder 15gm Bottle TOPICAL Not Given BID [facility] Protocol Ondansetron HCl 4 mg 03/01/25 15:09 03/02/25 07:46 Ondansetron 4 Mg/2 Ml Vial IV 4 mg Q8H PRN PRN Administration NAUSEA/VOMITING Oxycodone HCl 5 mg 03/01/25 15:09 03/01/25 22:25 Oxycodone 5 Mg Tablet PO 5 mg Q4H PRN PRN Administration Pain Score 4-10 Senna/Docusate Sodium 2 tablet 03/01/25 22:00 03/01/25 21:11 Senna/Docusate Sodium 1 Tablet PO 2 tablet BID [facility] Administration Sodium Chloride 10 - 40 ml 03/01/25 15:09 03/02/25 07:46 0.9% Saline Lock 10 Ml Syringe IV 10 ml UD PRN Administration SALINE FLUSH Trazodone HCl 50 mg 03/01/25 22:00 03/01/25 21:12 Trazodone 50 Mg Tablet PO Not Given QHS [facility] Medical History Hypothyroidism Anxiety Dementia Self-catheterizes urinary bladder Hypertension Back pain Home Medications ?Medication ?Instructions ?Recorded ?Last Taken ?Type ascorbic acid (vitamin C) 500 mg 500 mg PO DAILY 03/01/25 02/28/25 History tablet (C-500) clonazepam 0.5 mg tablet 0.5 mg PO TID PRN anxiety 03/01/25 03/01/25 History donepezil 10 mg tablet 10 mg PO DAILY 03/01/25 03/01/25 History escitalopram oxalate 20 mg tablet 20 mg PO DAILY 03/01/25 02/28/25 History levothyroxine 50 mcg tablet 50 mcg PO DAILY 03/01/25 03/01/25 History trazodone 50 mg tablet 50 mg PO QHS 03/01/25 02/28/25 History Allergy/AdvReac Type Severity Reaction Status Date / Time No Known Allergies Allergy Verified 03/01/25 11:27 Family History Other Hypertension Surgical History H/O: hysterectomy Status post right knee replacement Social History household members: none housing: apartment current occupational status: retired other: Daughter lives a few doors down helps her on a regular basis Smoking Status: Never smoker alcohol intake: never substance use type: does not use Review of Systems (Anesthesia) ROS Narrative System reviewed and no additional complaints, except as documented.
--- NOTE | 2025-03-02 11:33 | PN_ITS ---
Subjective Subjective Patient seen and examined. Her daughter was by her bedside. She had no active complaints. She denies any pain. Review of systems is otherwise negative. She has remained hemodynamically stable. Objective Data Objective Data Vital Signs: Vital Signs Temp Pulse Resp BP Pulse Ox O2 Del Method 97.5 F L 62 14 138/60 H 100 Room Air 03/02/25 11:09 03/02/25 11:09 03/02/25 11:09 03/02/25 11:09 03/02/25 11:09 03/02/25 07:36 Oxygen Delivery Method Room Air Weight: 127 lb 3.307 oz Body Mass Index (BMI) 25.0 Intake & Output: Intake and Output for Last 24 Hours 02/28/25 03/01/25 03/02/25 23:59 23:59 23:59 Intake Total 698.75 / 698.75 Output Total 450 / 450 Balance 248.75 / 248.75 Lab / Micro Data 03/02/25 05:20 03/02/25 05:20 Labs: Laboratory Results - last 24 hr 03/01/25 12:15: WBC 18.8 H, RBC 4.28, Hgb 13.0, Hct 37.3, MCV 87.1, MCH 30.4, MCHC 34.9, RDW Std Deviation 40.5, RDW Coeff of Leslie 12.9, Plt Count 239, MPV 10.3, Immature Gran % (Auto) 0.600, Neut % (Auto) 92.1 H, Lymph % (Auto) 3.3 L, Barber % (Auto) 3.8, Eos % (Auto) 0.0, Baso % (Auto) 0.2, Absolute Neuts (auto) 17.3 H, Absolute Lymphs (auto) 0.63 L, Nucleated RBC % 0, PT 14.9, INR 1.1, APTT 25.8, Sodium 140, Potassium 4.2, Chloride 104, Carbon Dioxide 25.2, Anion Gap 11, BUN 16, Creatinine 0.90, Estim Creat Clear Calc 37.62 L, Est GFR (MDRD) Non- Af 63, BUN/Creatinine Ratio 17.4, Glucose 148 H, Calcium 9.2, Vitamin D 25- Hydroxy 29.9 L, Blood Type B POSITIVE, Antibody Screen NEGATIVE 03/02/25 05:20: WBC 12.9 H, RBC 3.80 L, Hgb 11.6 L, Hct 33.7 L, MCV 88.7, MCH 30.5, MCHC 34.4, RDW Std Deviation 42.8, RDW Coeff of Leslie 13.2, Plt Count 203, MPV 9.5, Immature Gran % (Auto) 0.900, Neut % (Auto) 76.7 H, Lymph % (Auto) 11.6 L, Barber % (Auto) 9.5, Eos % (Auto) 0.9, Baso % (Auto) 0.4, Absolute Neuts (auto) 9.9 H, Absolute Lymphs (auto) 1.50, Nucleated RBC % 0, Sodium 140, Potassium 4.0, Chloride 103, Carbon Dioxide 27.7, Anion Gap 9, BUN 16, Creatinine 1.06, E stim Creat Clear Calc 31.45 L, Est GFR (MDRD) Non-Af 52 L, BUN/Creatinine Ratio 15.4, Glucose 109 H, Calcium 9.0, Phosphorus 4.0, Magnesium 2.2, Total Bilirubin 1.32 H, AST 27, ALT 11, Alkaline Phosphatase 55, Total Protein 6.0, Albumin 3.7, Globulin 2.3, Albumin/Globulin Ratio 1.6, TSH 1.470 Radiography Diagnostic Testing: Radiology Impression Hip/Pelvis X-Ray 03/01/25 11:41 IMPRESSION: Acute intertrochanteric fracture of the left femur. Reading Location: [facility] Knee X-Ray 03/01/25 11:41 IMPRESSION: Acute fracture of the left lateral femoral condyle. Reading Location: [facility] Brain CT 03/01/25 12:42 IMPRESSION: 1. No acute intracranial finding. 2. Findings of chronic microvascular ischemic changes and age-related changes. Reading Location: [facility] Lower Extremity CT 03/01/25 12:42 IMPRESSION: No acute osseous fracture. The previously visualized osseous fragment along the distal lateral left femoral condyle is secondary to diffuse bone lucency and probable nutrient channel. Reading Location: [facility] Chest X-Ray 03/01/25 13:59 IMPRESSION: Emphysema/fibrosis. No acute findings. Reading Location: [facility] Physical Exam Const alert, oriented x3, no apparent distress and well nourished General Appearance: cooperative HEENT normocephalic, head/scalp atraumatic, moist oral mucous membranes and oropharynx normal Eyes PERRL and EOMs intact bilaterally Neck no lymphadenopathy and supple Lymph Lymphatic: no lymphadenopathy noted and no lymphedema noted Resp normal respiratory effort, normal air movement and clear to auscultation bilaterally Resp Narrative: on room air. Cardio regular rate, regular rhythm, S1 normal heart sound, S2 normal heart sound and no murmurs GI normal to inspection, nondistended, normoactive bowel sounds, soft to palpation, non-tender and non-distended Extremity normal capillary refill, no clubbing, cyanosis or edema and no calf tenderness Extremity Narrative: LLE in knee brace Skin General Skin Exam: no breakdown Neuro CN's II-XII intact bilaterally, no focal motor deficits and no sensory deficits noted Motor Exam: general weakness Psych thought process normal and cooperative Appearance: appropriate Assessment & Plan Assessment/Plan (1) Acute pain of left knee: (2) Closed intertrochanteric fracture of left hip: PLAN: Plan #Left hip fracture due to mechanical fall * admitted with a complaint of mechanical fall with resultant left hip pain * imaging done showed left hip fracture- acute intertrochanteric fracture of the left femur and also showed acute fracture of the left lateral femoral condyle * CT showed a likely diffuse bone lucency. * CT of the brain showed no acute intracranial pathology and CXr showed emphysematous changes and fibrosis but on acute findings. * currently NPO * orthopedic surgery on board; for surgery later today * PT/OT On board. Fall precautions * on PO tylenol, PO oxycodone and IV morphine prn for pain * #Dementia: on donepezil #Hypothyroidism: on synthroid #Anxiety and depression: on trazodone, lexapro and clonazepam. DVT prophylaxis: lovenox COde status: DNRCCA with intubation * Charges/Coding Visit Charges Inpatient E&M: 75819 Subs Hosp L2
[2025-03-02] MEDS: Cefazolin 2 GM in Syringe IV (12:01)
[2025-03-02] MEDS: TRANEXAMIC ACID 1,000 MG in 0.9% Normal Saline (100mL Bag) 100 ML 440 MG IV (12:06)
--- NOTE | 2025-03-02 12:59 | PCM.POST.ANE ---
Anesthesia: Postop Eval I Current Vital Signs Temperature: 97.2 F Pulse Rate: 93 Blood Pressure: 121/73 Respiratory Rate: 16 Pulse Ox: 98 Oxygen Delivery Method: Room Air Assessment Airway patent: Yes Spontaneous unlabored respirations: Yes Mental status: Asleep nausea: No Vomiting: No Anesthesia Complication: No Fluid Hydration Crystalloid volume administer (ml): 600 Total IV fluid infused: 600 Progress Note Anesthesia document: Postop Eval 1 completed: Yes
[2025-03-02] MEDS: Ascorbic Acid 500 MG Tablet PO (13:44)
[2025-03-02] MEDS: Acetaminophen 500 MG Tablet 1000 MG PO ×2 (13:44→19:46)
[2025-03-02] MEDS: Senna/Docusate Sodium 1 Tablet 2 TABLET PO ×2 (13:44→19:46)
--- NOTE | 2025-03-02 14:45 | RAD_ITS ---
PROCEDURE: HIP MIN 2 VIEWS (PORTABLE) 03/02/2025 REASON FOR EXAM: POST OP TECHNIQUE: Two views of the left hip. COMPARISON: Left hip studies dated 03/01/2025 and 03/01/2025 FINDINGS: The left hip hardware appears to be intact without evidence of fracture or loosening. There is incomplete healing of the intertrochanteric fracture. Surgical fely overlie the hip. There is some soft tissue swelling and emphysematous changes seen in the soft tissues of the right hip. 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 RAD/Hip Min 2 Views (Portable) IMPRESSION: The prosthetic hardware appears to be intact without evidence of fracture or lo osening. Reading Location: [id number]
--- NOTE | 2025-03-02 14:58 | CHAPLAIN ---
Type of Pastoral Visit _x__ Initial Visit ___ Follow-up Visit ___ On-call Visit ___ General Patient Visit ___ Spiritual Assessment ___ Family Conference ___ Bereavement ___ Rapid Response ___ Code Blue ___ Other (describe below) Pastoral Care Referral From _x__ Patient ___ Family ___ Nurse ___ Physician ___ Magazine Writer ___ Auto Travel Counselor ___ Other (describe below) Sacrament/Intervention ___ Active listening ___ Anointing ___ Advent ___ Bereavement ___ Communion ___ Karissa exploration ___ ___ Life review _x__ Prayer ___ Reconciliation ___ Sacrament of Sick _x_ Supportive presence ___ Wedding ___ Other (describe below) Pastoral Comments patient was in her room after her surgery earlier today; family members are in the room; pt is awake and welcomes a prayer for support;
[2025-03-02] MEDS: Ensure Surgery 237 ML LIQUID PO (16:19)
--- NOTE | 2025-03-02 17:07 | CASEMGMT ---
Social Work- SW met with pt to discuss discharge planning. A list of SNF providers including quality and resource use data and consistent with the patient?s preferred geographic region, medical needs, and insurance network were provided from the [facility]. Pt reports dtr will be in tomorrow to look at list with her to make selections. Pt expressed concern about surgery causing depression. SW provided support and offered discussion on coping skills, as well as pt concerns. Pt reports that she has felt depressed before and shared how hard it was to have depression previously. SW will remain available to follow. AMINA Draper
[2025-03-02] MEDS: Enoxaparin 40 MG/0.4 ML Syringe SC (19:35)
[2025-03-02] MEDS: Cefazolin 1 GM/50 ML BAG IV (19:35)
[2025-03-02] MEDS: traZODone 50 MG Tablet PO (19:45)
[2025-03-02] MEDS: Escitalopram Oxalate 20 MG Tablet PO (20:05)
[2025-03-02] MEDS: clonazePAM 0.5 MG Tablet PO (20:05)
[2025-03-02] MEDS: Nystatin Powder 15gm Bottle 1 APPLIC TOPICAL (20:06)
[2025-03-03] VITALS (7 sets, daily range): BP systolic 108–132; BP diastolic 53–67; PULSE 82–108; RESP 16–18; TEMP 36.1–37.3; O2SAT 94–97
[2025-03-03] MEDS: MELATONIN 3 MG TABLET PO (01:19)
[2025-03-03] MEDS: oxyCODONE 5 MG Tablet PO ×4 (01:19→15:46)
[2025-03-03] MEDS: Cefazolin 1 GM/50 ML BAG IV (05:12)
[2025-03-03] MEDS: Levothyroxine 50 MCG Tablet PO (05:12)
[2025-03-03] MEDS: Acetaminophen 500 MG Tablet 1000 MG PO ×3 (05:12→21:03)
[2025-03-03] MEDS: 0.9% Saline Lock 10 ML Syringe IV ×2 (05:13→21:07)
[2025-03-03 07:37] LABS: Absolute Lymphocyte Count 1.61 X10^3/uL (0.83-4.51); Absolute Neutrophil Count 9.5 X10^3/uL (2.0-7.7); Basophil# 0.06 X10^3/uL; Basophil% 0.5 % (0-1); Eosinophil# 0.24 X10^3/uL; Eosinophils% 1.9 % (0-5); Hematocrit 25.5 % (37-47); Hemoglobin 8.7 g/dL (12.0-15.0); Lymphocyte # 1.61 X10^3/ul (0.83-4.51); Lymphocyte % 12.6 % (19-41); Mean Corp Hgb Conc 34.1 g/dL (32-36); Mean Corpuscular Hgb 30.2 pg (27.0-32.0); Mean Corpuscular Volume 88.5 fL (81-99); Mean Platelet Vol. 10.4 fl (6.2-12.0); Monocyte# 1.23 X10^3/uL; Monocyte% 9.6 % (0-10); NRBC Flagged by Analyzer 0 % (0-5); Neutrophil # 9.51 X10^3/uL (2.7-7.7); Neutrophil % 74.6 % (47-70); Platelet Count 171 K/mm3 (150-450); RBC Distribution Width CV 13.2 % (11.6-14.6); RBC Distribution Width SD 42.8 fl (35.1-43.9); Red Blood Count 2.88 M/mm3 (4.2-5.4); White Blood Count 12.8 K/mm3 (4.4-11.0)
[2025-03-03 08:42] LABS: Anion Gap 10 (5-15); BUN 13 mg/dL (4-19); BUN/Creat Ratio 13.6 RATIO (10-20); Calcium,Total 8.3 mg/dL (7.6-11.0); Carbon Dioxide 25.7 mmol/L (21.0-32.0); Chloride 102 mmol/L (98-108); Creatinine, Serum 0.94 mg/dL (0.70-1.20); EST Glomerular Filtration Rate 60 (>60); Estimated Creatinine Clearance 35.43 ml/min (50-250); Glucose 102 mg/dL (70-99); Potassium 3.9 mmol/L (3.3-5.1); Sodium Level 137 mmol/L (133-145)
[2025-03-03] MEDS: clonazePAM 0.5 MG Tablet 0.25 MG PO (08:52)
[2025-03-03] MEDS: Enoxaparin 40 MG/0.4 ML Syringe SC (08:53)
[2025-03-03] MEDS: Ensure Surgery 237 ML LIQUID PO (08:53)
[2025-03-03] MEDS: Ascorbic Acid 500 MG Tablet PO (08:54)
--- NOTE | 2025-03-03 09:05 | POSTOPAN2_ITS ---
Anesthesia Postop Eval I Sum Postop Eval Completion status Anesthesia document: Postop Eval 1 completed: Yes Anesthesia Postop Eval I Summary Anesthesia Postop Eval I Summary: Anesthesia Postop Eval I: Assessment Summary Airway patent Yes 03/02/25 13:00 [email or web address] Spontaneous unlabored Yes 03/02/25 13:00 [email or web address] respirations Mental status Asleep 03/02/25 13:00 [email or web address] nausea No 03/02/25 13:00 [email or web address] Vomiting No 03/02/25 13:00 [email or web address] Anesthesia Postop Eval I: Fluid Summary Crystalloid volume administer 600 03/02/25 13:00 [email or web address] (ml) Colloids volume administered ( ml) Blood Product volume administered (ml) Total IV fluid infused 600 03/02/25 13:00 [email or web address] Anesthesia Postop Eval I: Summary Notes Anesthesia Complication No 03/02/25 13:00 [email or web address] Anesthesia Complication Comment: Post-operative progress note Anesthesia: Postop Eval II Evaluation Mental status: Awake and Calm Pain Level: 2 nausea: No Vomiting: No Complications Anesthesia Complication: No
--- NOTE | 2025-03-03 09:05 | PCM.POSTANE2 ---
Anesthesia Postop Eval I Sum Postop Eval Completion status Anesthesia document: Postop Eval 1 completed: Yes Anesthesia Postop Eval I Summary Anesthesia Postop Eval I Summary: Anesthesia Postop Eval I: Assessment Summary Airway patent Yes 03/02/25 13:00 [email or web address] Spontaneous unlabored Yes 03/02/25 13:00 [email or web address] respirations Mental status Asleep 03/02/25 13:00 [email or web address] nausea No 03/02/25 13:00 [email or web address] Vomiting No 03/02/25 13:00 [email or web address] Anesthesia Postop Eval I: Fluid Summary Crystalloid volume administer 600 03/02/25 13:00 [email or web address] (ml) Colloids volume administered ( ml) Blood Product volume administered (ml) Total IV fluid infused 600 03/02/25 13:00 [email or web address] Anesthesia Postop Eval I: Summary Notes Anesthesia Complication No 03/02/25 13:00 [email or web address] Anesthesia Complication Comment: Post-operative progress note Anesthesia: Postop Eval II Evaluation Mental status: Awake and Calm Pain Level: 2 nausea: No Vomiting: No Complications Anesthesia Complication: No
[2025-03-03] MEDS: Donepezil HCl 10 MG Tablet PO (10:18)
[2025-03-03] MEDS: Menthol/Lanolin/Calamine/Znox 113 GM Tube 1 APPLIC TOPICAL ×2 (10:18→21:02)
[2025-03-03] MEDS: Nystatin Powder 15gm Bottle 1 APPLIC TOPICAL ×2 (10:18→21:01)
--- NOTE | 2025-03-03 10:56 | CASEMGMT ---
Social Work- SW completed referral to TCU per pt request. Pt alternate is [facility]. Pt accepted to TCU; precert started. AMINA Holman
--- NOTE | 2025-03-03 13:16 | PN.ORTHO_ITS ---
Subjective Subjective Patient is lying comfortably in bed. Patient states that her pain is controlled. Patient states that she has not been up and walking. Patient states that she has not even been up and to the bathroom. Patient denies any nausea, vomiting, dizziness, lightheadedness. Patient denies any shortness of breath, chest pain, calf pain. Patient denies any fever, chills, signs of infection. Patient denies any adverse events overnight. Objective Data Objective Data Vital Signs: Vital Signs Temp Pulse Resp BP Pulse Ox O2 Del Method 98.8 F 108 H 16 129/64 H 97 Room Air 03/03/25 11:29 03/03/25 11:29 03/03/25 11:29 03/03/25 11:29 03/03/25 11:29 03/03/25 11:29 Oxygen Delivery Method Room Air Weight: 57.7 kg Body Mass Index (BMI) 25.0 Intake & Output: Intake and Output for Last 24 Hours 03/01/25 03/02/25 03/03/25 23:59 23:59 23:59 Intake Total 1772.25 / 1772.25 50 / 50 Output Total 1075 / 1075 1725 / 1725 Balance 697.25 / 697.25 -1675 / -1675 Lab / Micro Data 03/03/25 07:02 03/03/25 07:02 Labs: Laboratory Results - last 24 hr 03/03/25 07:02: WBC 12.8 H, RBC 2.88 L, Hgb 8.7 L, Hct 25.5 L, MCV 88.5, MCH 30.2, MCHC 34.1, RDW Std Deviation 42.8, RDW Coeff of Leslie 13.2, Plt Count 171, MPV 10.4, Immature Gran % (Auto) 0.800, Neut % (Auto) 74.6 H, Lymph % (Auto) 12.6 L, [place] % (Auto) 9.6, Eos % (Auto) 1.9, Baso % (Auto) 0.5, Absolute Neuts (auto) 9.5 H, Absolute Lymphs (auto) 1.61, Nucleated RBC % 0, Sodium 137, Potassium 3.9, Chloride 102, Carbon Dioxide 25.7, Anion Gap 10, BUN 13, Creatinine 0.94, Estim Creat Clear Calc 35.43 L, Est GFR (MDRD) Non-Af 60, BUN/Creatinine Ratio 13.6, Glucose 102 H, Calcium 8.3 Radiography Diagnostic Testing: Radiology Impression Hip X-Ray 03/02/25 14:45 IMPRESSION: The prosthetic hardware appears to be intact without evidence of fracture or loosening. Reading Location: [facility] Physical Exam Narrative 1. MEJIA hose in place bilaterally. 2. SCDs in place bilaterally. 3. Dressings are clean dry and intact. 4. Left hip is soft and supple. 5. Dorsiflexion and plantarflexion are performed without pain or restriction. 6. Sensation intact to light touch. 7. Neurovascularly intact. 8. Negative Homans bilaterally. Const alert, oriented x3 and no apparent distress Assessment & Plan Assessment/Plan (1) Closed intertrochanteric fracture of left hip: PLAN: Status post Left hip cephalomedullary nailing day 1. 1. DVT prophylaxis: Patient is currently doing Lovenox for enhanced DVT prophylaxis. Dr. Overton recommended aspirin 81 mg twice daily for 4 weeks upon discharge. Patient will wear MEJIA hose for 2 weeks postoperatively. Denies past history of DVT or pulmonary embolism. 2. Pain medications: Patient will be on Tylenol 1000 mg every 8 hours taking no more than 3000 mg in 24 hours. Patient will then be taking oxycodone as needed for pain control. OARRS report was reviewed today. The risk of abuse potential for narcotic pain medication was discussed and reviewed. Patient was advised not to drive motor vehicle or operate a vehicle while taking narcotic pain medications. Patient voiced understanding. 3. Constipation: Patient was instructed to take senna as instructed until her first bowel movement to decrease risk of impaction following surgery. Patient was instructed if she has not had a bowel movement in 3 days to call our office. 4. H&H: 8.06/12.5. At this time patient is asymptomatic and afebrile. Due to hemoglobin being below the threshold of 10 we will start ferrous sulfate and folic acid today. Patient was educated on the risk of constipation with ferrous sulfate. I would recommend that patient follow-up with primary care provider a week or 2 to ensure that hemoglobin is increasing. Will be managed by primary care team. 5. Reactive leukocytosis: Current white blood cell count is 12.8. Patient is asymptomatic and afebrile. Patient did not receive Decadron intraoperatively. 6. Physical therapy: Patient is to be weightbearing as tolerated with walker at this time. Patient does have outpatient physical therapy established. 7. Incentive spirometry: Patient was encouraged to use incentive spirometer every hour that they are awake for the first week to decrease risk of postoperative lung infection. 8. Dressings: Patient was educated they are allowed to get dressing wet on postop day 1. Patient was educated they are allowed to remove dressing on postop day 5 and can leave open to air as long as incision is clean, dry, intact. 9. Patient is a follow-up for postoperative instructions. 10. Appreciate recommendations from medicine for safe and appropriate discharge. Medicine is currently primary care team. 11. Patient is okay for discharge from orthopedic services as long as pain maintains adequately controlled, patient works with physical therapy and is well, and is okay per medicine who is currently primary care team. Contact orthopedic with any concerns or questions
--- NOTE | 2025-03-03 14:59 | PN_ITS ---
Subjective Subjective Patient seen and examined. Her daughter was by her bedside. She had no active complaints. Pain was well-controlled. She is postop day 1 for left hip cephalomedullary nailing. She has remained hemodynamically stable. Objective Data Objective Data Vital Signs: Vital Signs Temp Pulse Resp BP Pulse Ox O2 Del Method 99.2 F H 98 18 108/59 L 96 Room Air 03/03/25 14:38 03/03/25 14:38 03/03/25 14:38 03/03/25 14:38 03/03/25 14:38 03/03/25 14:38 Oxygen Delivery Method Room Air Weight: 127 lb 3.307 oz Body Mass Index (BMI) 25.0 Intake & Output: Intake and Output for Last 24 Hours 03/01/25 03/02/25 03/03/25 23:59 23:59 23:59 Intake Total 1772.25 / 1772.25 50 / 50 Output Total 1075 / 1075 1725 / 1725 Balance 697.25 / 697.25 -1675 / -1675 Lab / Micro Data 03/03/25 07:02 03/03/25 07:02 Labs: Laboratory Results - last 24 hr 03/03/25 07:02: WBC 12.8 H, RBC 2.88 L, Hgb 8.7 L, Hct 25.5 L, MCV 88.5, MCH 30.2, MCHC 34.1, RDW Std Deviation 42.8, RDW Coeff of Leslie 13.2, Plt Count 171, MPV 10.4, Immature Gran % (Auto) 0.800, Neut % (Auto) 74.6 H, Lymph % (Auto) 12.6 L, [place] % (Auto) 9.6, Eos % (Auto) 1.9, Baso % (Auto) 0.5, Absolute Neuts (auto) 9.5 H, Absolute Lymphs (auto) 1.61, Nucleated RBC % 0, Sodium 137, Potassium 3.9, Chloride 102, Carbon Dioxide 25.7, Anion Gap 10, BUN 13, Creatinine 0.94, Estim Creat Clear Calc 35.43 L, Est GFR (MDRD) Non-Af 60, BUN/Creatinine Ratio 13.6, Glucose 102 H, Calcium 8.3 Radiography Diagnostic Testing: Radiology Impression Hip X-Ray 03/02/25 14:45 IMPRESSION: The prosthetic hardware appears to be intact without evidence of fracture or loosening. Reading Location: [facility] Physical Exam Const alert, oriented x3, no apparent distress, average body habitus and well nourished General Appearance: cooperative HEENT normocephalic, head/scalp atraumatic, hearing grossly normal bilaterally, moist oral mucous membranes and oropharynx normal Eyes PERRL and EOMs intact bilaterally Neck no lymphadenopathy and supple Lymph Lymphatic: no lymphadenopathy noted and no lymphedema noted Resp normal respiratory effort, normal air movement, no retractions, no use of accessory muscles and clear to auscultation bilaterally Resp Narrative: on room air. Cardio regular rate, regular rhythm, S1 normal heart sound, S2 normal heart sound and no murmurs GI normal to inspection, nondistended, normoactive bowel sounds, soft to palpation, non-tender and non-distended Extremity normal capillary refill, no clubbing, cyanosis or edema and no calf tenderness Extremity Narrative: LLE in knee brace. Intact dressing over left hip Skin General Skin Exam: no breakdown Neuro oriented x3, CN's II-XII intact bilaterally, no focal motor deficits and no sensory deficits noted Speech: speech normal Motor Exam: general weakness Psych thought process normal and cooperative; Negative for affect normal Appearance: appropriate Assessment & Plan Assessment/Plan (1) Acute pain of left knee: (2) Closed intertrochanteric fracture of left hip: PLAN: Plan #Left hip fracture due to mechanical fall * s/p left cephalomedullary nailing. Today is POD 1 * orthopedic surgery on board * PT/OT On board. Fall precautions * on PO tylenol, PO oxycodone and IV morphine prn for pain * incentive spirometry * #Anemia: * Hemoglobin is 8.7. Was 11.6 yesterday. * Likely due to acute blood loss anemia from surgery. * Will monitor closely for now. * #Dementia: on donepezil #Hypothyroidism: on synthroid #Anxiety and depression: on trazodone, lexapro and clonazepam. DVT prophylaxis: lovenox COde status: DNRCCA with intubation Disposition: awaiting placement in TCU, pending precert. * Charges/Coding Visit Charges Inpatient E&M: 60756 Subs Hosp L2
--- NOTE | 2025-03-03 15:39 | CASEMGMT ---
Discharge Planning Pts daughter/HC POA (Maribeth) updated that pt has been accepted to TCU and precert has been started. Kandace Martínez DC Planning Asst.
[2025-03-03] MEDS: Ferrous Sulfate 325 MG Tablet PO (16:53)
[2025-03-03] MEDS: Escitalopram Oxalate 20 MG Tablet PO (20:29)
[2025-03-03] MEDS: clonazePAM 0.5 MG Tablet PO (20:29)
[2025-03-03] MEDS: traZODone 50 MG Tablet PO (21:03)
[2025-03-04 04:43] VITALS: BP 132/51; PULSE 87; RESP 16; TEMP 37.2; O2SAT 95
[2025-03-04] MEDS: oxyCODONE 5 MG Tablet PO (04:45)
[2025-03-04 05:10] LABS: Absolute Lymphocyte Count 1.35 X10^3/uL (0.83-4.51); Basophil# 0.07 X10^3/uL; Basophil% 0.6 % (0-1); Eosinophil# 0.21 X10^3/uL; Eosinophils% 1.8 % (0-5); Hematocrit 24.6 % (37-47); Hemoglobin 8.5 g/dL (12.0-15.0); Lymphocyte # 1.35 X10^3/ul (0.83-4.51); Lymphocyte % 11.6 % (19-41); Mean Corp Hgb Conc 34.6 g/dL (32-36); Mean Corpuscular Hgb 29.9 pg (27.0-32.0); Mean Corpuscular Volume 86.6 fL (81-99); Mean Platelet Vol. 10.3 fl (6.2-12.0); Monocyte# 0.88 X10^3/uL; Monocyte% 7.6 % (0-10); NRBC Flagged by Analyzer 0 % (0-5); Neutrophil # 8.97 X10^3/uL (2.7-7.7); Neutrophil % 77.5 % (47-70); Platelet Count 177 K/mm3 (150-450); RBC Distribution Width CV 13.2 % (11.6-14.6); RBC Distribution Width SD 41.2 fl (35.1-43.9); Red Blood Count 2.84 M/mm3 (4.2-5.4); White Blood Count 11.6 K/mm3 (4.4-11.0)
[2025-03-04 05:41] LABS: Anion Gap 10 (5-15); BUN 14 mg/dL (4-19); BUN/Creat Ratio 18.5 RATIO (10-20); Calcium,Total 8.4 mg/dL (7.6-11.0); Chloride 103 mmol/L (98-108); Creatinine, Serum 0.76 mg/dL (0.70-1.20); EST Glomerular Filtration Rate 77 (>60); Estimated Creatinine Clearance 41.63 ml/min (50-250); Glucose 112 mg/dL (70-99); Potassium 3.7 mmol/L (3.3-5.1); Sodium Level 139 mmol/L (133-145)
[2025-03-04] MEDS: Acetaminophen 500 MG Tablet 1000 MG PO ×2 (05:46→13:31)
[2025-03-04] MEDS: Levothyroxine 50 MCG Tablet PO (05:46)
[2025-03-04 05:53] VITALS: BMI 25.2
[2025-03-04 08:07] VITALS: O2SAT 95
[2025-03-04 09:25] VITALS: BP 136/44
[2025-03-04 09:26] VITALS: BP 117/36; PULSE 95; RESP 18; TEMP 37.2; O2SAT 97
[2025-03-04] MEDS: Enoxaparin 40 MG/0.4 ML Syringe SC (09:36)
[2025-03-04] MEDS: Folic Acid 1 MG Tablet PO (09:36)
[2025-03-04] MEDS: Donepezil HCl 10 MG Tablet PO (09:36)
[2025-03-04] MEDS: Menthol/Lanolin/Calamine/Znox 113 GM Tube 1 APPLIC TOPICAL (09:36)
[2025-03-04] MEDS: Ascorbic Acid 500 MG Tablet PO (09:36)
[2025-03-04] MEDS: Nystatin Powder 15gm Bottle 1 APPLIC TOPICAL (09:36)
[2025-03-04 09:39] VITALS: PULSE 95; RESP 18; O2SAT 97
--- NOTE | 2025-03-04 12:21 | TREXTCAR_ITS ---
Diet Diet Order/Speech Therapy: 03/02/25 16:20 Diet: Regular - General Routine Orders/Code Status Enema Type: Fleetz Enema Frequency: Daily PRN Suppository Type: Dulcolax 10mg DC O2, CPAP, BIPAP needs Home O2 Discharge instructions: No Wound(s) LEFT HIP: Wound Type: Surgical Incision Therapies Weight Bearing: Weight bearing as tolerated Physical Therapy: Eval and Treat Occupational Therapy: Eval and Treat Problem/Diagnosis (1) Closed intertrochanteric fracture of left hip: Status: Acute Code(s): S72.142A - Displaced intertrochanteric fracture of left femur, initial encounter for closed fracture Plan #Left hip fracture due to mechanical fall * s/p left cephalomedullary nailing. Today is POD 1 * orthopedic surgery on board * PT/OT On board. Fall precautions * on PO tylenol, PO oxycodone and IV morphine prn for pain * incentive spirometry * #Anemia: * Hemoglobin is 8.7. Was 11.6 yesterday. * Likely due to acute blood loss anemia from surgery. * Will monitor closely for now. * #Dementia: on donepezil #Hypothyroidism: on synthroid #Anxiety and depression: on trazodone, lexapro and clonazepam. DVT prophylaxis: lovenox COde status: DNRCCA with intubation Disposition: awaiting placement in TCU, pending precert. * Allergies/Procedures Done in Hospital Allergies No Known Allergies Allergy (Verified 03/01/25 11:27) Procedures: None Type of Care/Length of Stay Estimated LOS: Convalescent Care Less Than 30 days Type of Care Needed: Skilled Rehab Potential: Fair Prognosis: Fair Additional Orders/Day of Discharge Day of Discharge: 03/04/25 Discharge Plan Admission Admit Date/Time: 03/01/25 13:47 Primary Reason for Your Visit: left hip fracture Attending Provider: Allison Tran Primary Care Provider: Anaid Luna Consulting Providers: Boston Rosas; Roro Long Instructions Patient Instructions: Hip Fx Surg Dc Discharge Orders/Prescriptions Prescriptions: New aspirin 81 mg capsule 81 mg PO BID 28 Days Qty: 56 0RF acetaminophen [Aphen] 325 mg tablet 650 mg PO Q6H PRN (Reason: pain) Qty: 30 1RF Continued trazodone 50 mg tablet 50 mg PO QHS donepezil 10 mg tablet 10 mg PO DAILY clonazepam 0.5 mg tablet 0.5 mg PO TID PRN (Reason: anxiety) Patient Comments: PT TAKES 1/2 TAB IN MORNING AND 1 TAB AT BEDTIME. levothyroxine 50 mcg tablet 50 mcg PO DAILY escitalopram oxalate 20 mg tablet 20 mg PO DAILY Patient Comments: PT TAKES AT BEDTIME. ascorbic acid (vitamin C) [C-500] 500 mg tablet 500 mg PO DAILY Referrals / Follow Up: Anaid Luna MD [Primary Care Provider] - Within 1 Week Boston Rosas DO [Med Staff - Active Staff] - Within 2 Weeks Disposition Disposition (needs filled in before D/C Order can be placed): Shelter Facility
--- NOTE | 2025-03-04 12:22 | DS.PCM_ITS ---
Providers Date of Admission: 03/01/25 Date of Discharge: 03/04/25 Primary Care Physician: Dr. Anaid Luna MD Consultations 03/01/25 15:09 Consult: Onc/Wound/fresh meat grader Routine Comment: Consult: Orthopedics Routine Consulting Provider: Boston Rosas Reason for Consult: Left intertrochanteric fracture EMERGENT Consult: No MD Notified: Yes Date Notified: 03/01/25 Time Notified: 13:49 Method of Notification: ED Physician Initiated Reason For Visit: LEFT HIP PAIN WITH INTERTROCHANTERIC FX Diagnosis Discharge Diagnosis (1) Closed intertrochanteric fracture of left hip: Status: Acute Code(s): S72.142A - Displaced intertrochanteric fracture of left femur, initial encounter for closed fracture Plan #Left hip fracture due to mechanical fall * s/p left cephalomedullary nailing. Today is POD 1 * orthopedic surgery on board * PT/OT On board. Fall precautions * on PO tylenol, PO oxycodone and IV morphine prn for pain * incentive spirometry * #Anemia: * Hemoglobin is 8.7. Was 11.6 yesterday. * Likely due to acute blood loss anemia from surgery. * Will monitor closely for now. * #Dementia: on donepezil #Hypothyroidism: on synthroid #Anxiety and depression: on trazodone, lexapro and clonazepam. DVT prophylaxis: lovenox COde status: DNRCCA with intubation Disposition: awaiting placement in TCU, pending precert. * Medications at Discharge Home Medications ascorbic acid (vitamin C) 500 mg tablet (C-500) 500 mg PO DAILY supplement 03/01/25 clonazepam 0.5 mg tablet 0.5 mg PO TID PRN anxiety 03/01/25 donepezil 10 mg tablet 10 mg PO DAILY dementia 03/01/25 escitalopram oxalate 20 mg tablet 20 mg PO DAILY anxiety 03/01/25 levothyroxine 50 mcg tablet 50 mcg PO DAILY thyroid 03/01/25 trazodone 50 mg tablet 50 mg PO QHS anxiety 03/01/25 acetaminophen 325 mg tablet (Aphen) 650 mg (2 x 325 mg) PO Q6H PRN pain #30 tabs 03/04/25 aspirin 81 mg capsule 81 mg PO BID prophylactic 28 days #56 caps 03/04/25 Hospital Course Operations - (left hip cephalomedullary nailing) Procedures None Summary of Care Provided Minutes Spent on Discharge: 47 Hospital Course: Patient is an 84-year-old female with past medical history as outlined was admitted to the ED on 03/01/2025 with complaint of left leg pain after mechanical fall. He was sitting on the side of the bed and slipped off and landed on her left hip, with resultant significant pain. She initially complained of knee pain but when she came into the ED the pain was found to be rather in her left hip. Imaging done showed acute intertrochanteric fracture of the left femur. Left x-ray initially showed acute fracture of the left lateral femoral condyle but CT of the knee done was negative for any evidence of fracture. CT of the brain showed no acute intracranial pathology. Orthopedic surgery was consulted. She had left cephalomedullary nailing done on 03/02/2025. Postop course was uncomplicated and patient did well. She was placed on p.o. aspirin 81 mg twice daily for DVT prophylaxis. She was discharged to group home facility on 03/04/2025. At the request of patient's daughter, patient was discharged on only p.o. Tylenol 650 mg every 6 hours as needed for pain. Daughter did not want mother to have any opioids as she felt that the opioids made her mother much more confused in the setting of her underlying dementia. She was discharged on p.o. aspirin 81 mg twice daily for 28 days for DVT prophylaxis, per orthopedics recommendation. Patient seen and examined prior to discharge. She had no active complaints. Her daughter was by her bedside. Review of systems otherwise negative. Labs and vitals reviewed. Home medication reviewed and reconciled. Physical Exam Const alert, oriented x3, no apparent distress, average body habitus and well nourished General Appearance: cooperative, comfortable and well kempt Orientation / Consciousness: awake Exam Limitations: no limitations HEENT normocephalic, head/scalp atraumatic, hearing grossly normal bilaterally, moist oral mucous membranes and oropharynx normal Mouth: oral and palatal mucosa normal Eyes PERRL, EOMs intact bilaterally and conjunctivae normal Neck no lymphadenopathy and supple Lymph Lymphatic: no lymphadenopathy noted and no lymphedema noted Resp normal respiratory effort, normal air movement, no retractions, no use of accessory muscles and clear to auscultation bilaterally Resp Narrative: on room air. Cardio regular rate, regular rhythm, S1 normal heart sound, S2 normal heart sound and no murmurs GI normal to inspection, nondistended, normoactive bowel sounds, soft to palpation, non-tender and non-distended Extremity normal capillary refill, no clubbing, cyanosis or edema and no calf tenderness Extremity Narrative: LLE in knee brace. Intact dressing over left hip Skin no rashes or lesions noted General Skin Exam: no breakdown Neuro oriented x3, CN's II-XII intact bilaterally, no focal motor deficits and no sensory deficits noted Speech: speech normal Motor Exam: general weakness Psych thought process normal and cooperative Psych Narrative: flat affect Weight / BMI Weight Weight: 128 lb 6.4 oz Body Mass Index (BMI) 25.2 ABG / Lab / Microbiology Data 03/04/25 04:29 03/04/25 04:29 Laboratory: Laboratory Results - last 24 hr 03/04/25 04:29: WBC 11.6 H, RBC 2.84 L, Hgb 8.5 L, Hct 24.6 L, MCV 86.6, MCH 29.9, MCHC 34.6, RDW Std Deviation 41.2, RDW Coeff of Leslie 13.2, Plt Count 177, MPV 10.3, Immature Gran % (Auto) 0.900, Neut % (Auto) 77.5 H, Lymph % (Auto) 11.6 L, [place] % (Auto) 7.6, Eos % (Auto) 1.8, Baso % (Auto) 0.6, Absolute Neuts (auto) 9.0 H, Absolute Lymphs (auto) 1.35, Nucleated RBC % 0, Sodium 139, Potassium 3.7, Chloride 103, Carbon Dioxide 26.0, Anion Gap 10, BUN 14, Creatinine 0.76, Estim Creat Clear Calc 41.63 L, Est GFR (MDRD) Non-Af 77, BUN/Creatinine Ratio 18.5, Glucose 112 H, Calcium 8.4 D/C Instructions Discharge Diet: Low fat / Low cholesterol Discharge Activity: Return to Normal Activity Weight Bearing Status: Weight bearing as tolerated Call your doctor if you observe: Fever of 101 or Higher, Shortness of breath, Dizziness, Swelling in the ankles and Chest pain DC O2, CPAP, BIPAP Needs Home O2 Discharge instructions: No DC home with Oxygen: No Meaningful Use Info Meaningful Use Meaningful Use Diagnoses (Choose all that apply): None applicable Ischemic Stroke Statin Dosing Therapy Reference: STATIN DOSE THERAPY REFERENCE: * Patients > 75 years receive moderate or high dose statin therapy. * Patients 75 years or YOUNGER should receive HIGH intensity statin dose unless contraindicated. You will be required to document reason for non-treatment if statin daily dose does not meet guidelines. HIGH DOSE STATIN THERAPY DAILY Atorvastatin > than or = to 40 mg Rosuvastatin > than or = to 20 mg Amlodipine + Atorvastatin > than or = to 2.5/40 mg Ezetimibe + Simvastatin 10/80 mg Simvastatin 80mg Discharge Plan Admission Admit Date/Time: 03/01/25 13:47 Primary Reason for Your Visit: left hip fracture Attending Provider: Allison Tran Primary Care Provider: Anaid Luna Consulting Providers: Boston Rosas; Roro Long Instructions Patient Instructions: Hip Fx Surg Dc Discharge Orders/Prescriptions Prescriptions: New aspirin 81 mg capsule 81 mg PO BID 28 Days Qty: 56 0RF acetaminophen [Aphen] 325 mg tablet 650 mg PO Q6H PRN (Reason: pain) Qty: 30 1RF Continued trazodone 50 mg tablet 50 mg PO QHS donepezil 10 mg tablet 10 mg PO DAILY clonazepam 0.5 mg tablet 0.5 mg PO TID PRN (Reason: anxiety) Patient Comments: PT TAKES 1/2 TAB IN MORNING AND 1 TAB AT BEDTIME. levothyroxine 50 mcg tablet 50 mcg PO DAILY escitalopram oxalate 20 mg tablet 20 mg PO DAILY Patient Comments: PT TAKES AT BEDTIME. ascorbic acid (vitamin C) [C-500] 500 mg tablet 500 mg PO DAILY Referrals / Follow Up: Anaid Luna MD [Primary Care Provider] - Within 1 Week Boston Rosas DO [Med Staff - Active Staff] - Within 2 Weeks Disposition Disposition (needs filled in before D/C Order can be placed): Care Home Facility Charges/Coding Visit Charges Inpatient E&M: 48736 Disch Hosp >30min
[2025-03-04 13:43] VITALS: BP 142/52; PULSE 83; RESP 16; TEMP 36.7; O2SAT 98
--- NOTE | 2025-03-04 15:01 | CASEMGMT ---
Social Work- Physician feels pt is medically ready for d/c. SW notified TCU admissions and faxed discharge documentation. SW called pt dtr and left a non-descript voicemail regrading transfer to TCU. Pt agreeable to discharge plans. Bedside nurse notified. Plan: TCU; skilled level of care AMINA Draper
--- NOTE | 2025-03-04 16:28 | NURSING ---
All documentation by director community health nursing Eden Guzman reviewed by nursing unit coordinator Ophelia RUIZ, RN.
== END 2025-03-04 14:57 | disposition skilled nursing facility (03) | DRG 481 ==
LOC: ED 12:55 → MS3 14:05
PROVIDERS: Specialist; Admitting Provider Internal Medicine; Emergency Provider Emergency Medicine; PCP Internal Medicine; Visit Provider Student in an Organized Health Care Education/Training Program
PROC: 0QS706Z Reposition Left Upper Femur with Intramedullary Internal Fixation Device, Open Approach (ICD-10-PCS; CPT 27245; principal; 2025-03-02 12:45)
DX: S72.142A Displaced intertrochanteric fracture of left femur, initial encounter for closed fracture (principal); D62 Acute posthemorrhagic anemia; F03.93 Unspecified dementia, unspecified severity, with mood disturbance; F03.94 Unspecified dementia, unspecified severity, with anxiety; Z66 Do not resuscitate; E03.9 Hypothyroidism, unspecified; I10 Essential (primary) hypertension; F32.A Depression, unspecified; M17.12 Unilateral primary osteoarthritis, left knee; M25.562 Pain in left knee; W19.XXXA Unspecified fall, initial encounter; D72.828 Other elevated white blood cell count; Z90.710 Acquired absence of both cervix and uterus; Z79.890 Hormone replacement therapy; Z79.899 Other long term (current) drug therapy; R33.9 Retention of urine, unspecified; Z79.82 Long term (current) use of aspirin; R91.8 Other nonspecific abnormal finding of lung field
CPT/HCPCS: 36415; 70450; 71045; 73502; 73560; 73700; 76000; 80048; 80053; 82306; 83735; 84100; 84443; 85025; 85610; 85730; 86850; 86900; 86901; 93005; 94668; 97162; 97166; 97530; 97535; 99285; C1713; A4216; J2405

== ENCOUNTER 2025-03-04 15:04 | Inpatient (IN) | payer MEDICARE, SELFPAY ==
[2025-03-04 15:16] VITALS: BP 153/57; PULSE 92; RESP 16; TEMP 37; O2SAT 95; BMI 25.2
[2025-03-04 15:44] VITALS: BMI 25.3
[2025-03-04 16:25] VITALS: RESP 16
--- NOTE | 2025-03-04 17:17 | HP.PCM_ITS ---
HPI - General General Date of Admission: 03/04/25 Date of Service: 03/04/25 Chief Complaint: Here for rehabilitation. HPI Narrative HARRY ABRAMS, is a 84 Female who presents with followin03/01/2025 [facility] ED fall. Left knee injury, fell off bed, hurt left knee, unable to move left knee. History left knee surgery, moved to [place] recently. CT brain negative, CT left knee negative. X-ray showed left hip fracture. Left knee immobilizer applied. 03/01/2025 Admit [facility]. Tylenol, Oxycodone, Dilaudid, prepare for surgery for left hip fracture. PT/OT/CM. 03/02/2025 Dr. Overton performed left hip cephalomedullary nail fixation. 03/02/2025 No complaints. Pain control, PT/OT. 03/03/2025 Comfortable in bed, pain controlled. Lovenox for dvt prophylaxis. Pain control, bowel regimen. PT/OT. 03/04/2025 Tylenol, Oxycodone, Morphine IV for pain. Incentive spirometry. Hemoglobin 8.7. PT/OT TCU. 03/04/2025 Admit to TCU with debility, here for rehabilitation, strengthening, prior to discharge home alone. [facility] Medical History (Updated 03/04/25 @ 17:[address] Garfield Yo MD) Hypothyroidism Anxiety Dementia Self-catheterizes urinary bladder Hypertension Back pain Home Medications ?Medication ?Instructions ?Recorded ?Last Taken ?Type ascorbic acid (vitamin C) 500 mg 500 mg PO DAILY suppl ement 03/01/25 03/04/25 History tablet (C-500) clonazepam 0.5 mg tablet 0.5 mg PO TID PRN anxiety 03/01/25 History donepezil 10 mg tablet 10 mg PO DAILY dementia 02/1703/04/25 History escitalopram oxalate 20 mg tablet 20 mg PO DAILY anxie ty 03/01/25 03/03/25 History levothyroxine 50 mcg tablet 50 mcg PO DAILY thyroid 03/04/25 History trazodone 50 mg tablet 50 mg PO QHS anxiety 5 03/03/25 History acetaminophen 325 mg tablet (Aphen) 650 mg (2 x 325 mg ) PO Q6H PRN 03/04/25 Unknown Rx pain #30 tabs aspirin 81 mg capsule 81 mg PO BID prophylactic 28 days 03/04/25 Unknown Rx #56 caps Allergy/AdvReac Type Severity Reaction Status Date / Time No Known Allergies Allergy Verified 03/04/25 15:58 Family History Other Hypertension Surgical History H/O: hysterectomy Status post right knee replacement Social History household members: none housing: apartment current occupational status: retired other: Daughter lives a few doors down helps her on a regular basis Smoking Status: Never smoker alcohol intake: never substance use type: does not use ROS Constitutional Constitutional: Reports weakness; Denies chills, fever(s) or weight gain ENT HEENT: Denies headache(s), nasal congestion or nasal discharge Cardiovascular Cardiovascular: Denies chest pain or palpitations Respiratory/Chest Respiratory/Chest: Denies cough, excessive phlegm production or shortness of breath with exertion Gastrointestinal Gastrointestinal: Denies abdominal pain, nausea or vomiting Genitourinary Genitourinary: Denies dysuria Musculoskeletal Musculoskeletal: Denies joint pain or joint swelling Integumentary Integumentary: Denies rash or wounds Neurologic Neurologic: Denies focal weakness, numbness or tingling Psychiatric Psychiatric: Denies anxiety, auditory hallucinations, depression, homicidal ideation or suicidal ideation Vital Signs Vital Signs Vital Signs: 03/04/25 15:16 03/04/25 16:25 Temperature 98.6 F Temperature Source Temporal Pulse Rate 92 Pulse Rhythm Regular Pulse Strength Normal (2+) Respiratory Rate 16 16 Respiratory Effort Normal Non-Labored Respiratory Depth Normal Respiratory Pattern Normal Blood Pressure 153/57 H Blood Pressure Mean 89 Blood Pressure Source Monitor Blood Pressure Position Semi-Fowlers Blood Pressure Location Left Arm Pulse Ox 95 Oxygen Delivery Method Room Air Room Air Weight Weight: 58.513 kg Body Mass Index (BMI) 25.2 Physical Exam Const alert General Appearance: cooperative HEENT normocephalic Eyes PERRL and EOMs intact bilaterally Neck supple, no JVD and no carotid bruits Resp normal respiratory effort, normal air movement and clear to auscultation bilaterally Cardio regular rate and regular rhythm GI normal to inspection, nondistended, normoactive bowel sounds, non-tender and non-distended Extremity normal capillary refill General Extremity: Negative for edema Skin no rashes or lesions noted General Skin Exam: no breakdown Psych affect normal Appearance: appropriate Assessment & Plan Assessment/Plan (1) Debility: (2) Fall: (3) Closed intertrochanteric fracture of left hip: (4) Acute pain of left knee: (5) Dementia: (6) Anxiety: (7) Depression: (8) Hypothyroidism: (9) Insomnia: (10) Urinary retention: PLAN: Plan 84 year old female with below past medical history hospitalized for fall, left hip fracture, underwent left hip cephalomedullary nail fixation 03/02/[address] Overton, complicated by left knee pain, admitted to TCU with debility, here for rehabilitation, strengthening, prior to discharge home alone. * Debility - PT/OT. * Pain - Tylenol 1000mg q6 prn pain (1-10). * Bowel - senna/colace 1 tablet bid, Magnesium citrate 300mL daily prn. * Adult immunization - Administer pneumonia vaccine, covid vaccine, flu vaccine as appropriate. * DVT prophylaxis - Aspirin 81mg bid thru 04/01/2025. * Vitamin C deficiency - Vitamin C 500mg daily. * Anxiety - Clonazepam 0.5mg tid prn, stable chronic assisted use, GDR not recommended. * Dementia NOS - Donepezil 10mg daily. * Depression - Lexapro 20mg daily, stable chronic meterman use, GDR not recommended. * Hypothyroidism - Levothyroxine 50mcg daily. * Insomnia - Trazodone 50mg qhs, stable chronic assisted use, GDR not re commended.
[2025-03-04] MEDS: Aspirin 81 MG TAB.CHEW PO (17:53)
[2025-03-04] MEDS: traZODone 50 MG Tablet PO (21:51)
[2025-03-04] MEDS: Acetaminophen 500 MG Tablet 1000 MG PO (21:51)
[2025-03-04] MEDS: Senna/Docusate Sodium 1 Tablet PO (21:51)
[2025-03-05 05:10] VITALS: BP 144/53; PULSE 79; RESP 16; TEMP 36.4
[2025-03-05 05:12] VITALS: PULSE 79; RESP 16; O2SAT 94
[2025-03-05] MEDS: Acetaminophen 500 MG Tablet 1000 MG PO ×3 (05:29→21:23)
[2025-03-05] MEDS: Levothyroxine 50 MCG Tablet PO (05:29)
[2025-03-05 06:26] LABS: Absolute Lymphocyte Count 1.57 X10^3/uL (0.83-4.51); Absolute Neutrophil Count 7.3 X10^3/uL (2.0-7.7); Basophil# 0.05 X10^3/uL; Basophil% 0.5 % (0-1); Eosinophil# 0.35 X10^3/uL; Eosinophils% 3.5 % (0-5); Hematocrit 25.8 % (37-47); Lymphocyte # 1.57 X10^3/ul (0.83-4.51); Lymphocyte % 15.9 % (19-41); Mean Corp Hgb Conc 34.9 g/dL (32-36); Mean Corpuscular Hgb 30.7 pg (27.0-32.0); Mean Corpuscular Volume 88.1 fL (81-99); Mean Platelet Vol. 10.3 fl (6.2-12.0); Monocyte# 0.55 X10^3/uL; Monocyte% 5.6 % (0-10); NRBC Flagged by Analyzer 0 % (0-5); Neutrophil # 7.27 X10^3/uL (2.7-7.7); Neutrophil % 73.4 % (47-70); Platelet Count 195 K/mm3 (150-450); RBC Distribution Width CV 13.2 % (11.6-14.6); RBC Distribution Width SD 42.1 fl (35.1-43.9); Red Blood Count 2.93 M/mm3 (4.2-5.4); White Blood Count 9.9 K/mm3 (4.4-11.0)
[2025-03-05 06:32] LABS: Anion Gap 10 (5-15); BUN 13 mg/dL (4-19); Calcium,Total 8.5 mg/dL (7.6-11.0); Carbon Dioxide 27.5 mmol/L (21.0-32.0); Chloride 102 mmol/L (98-108); Creatinine, Serum 0.78 mg/dL (0.70-1.20); EST Glomerular Filtration Rate 74 (>60); Glucose 100 mg/dL (70-99); Potassium 3.3 mmol/L (3.3-5.1); Sodium Level 140 mmol/L (133-145)
[2025-03-05 08:32] VITALS: BP 130/57; RESP 17; TEMP 36.8; O2SAT 97
[2025-03-05] MEDS: Senna/Docusate Sodium 1 Tablet PO ×2 (08:38→21:22)
[2025-03-05] MEDS: Escitalopram Oxalate 20 MG Tablet PO (08:38)
[2025-03-05] MEDS: Donepezil HCl 10 MG Tablet PO (08:38)
[2025-03-05] MEDS: Aspirin 81 MG TAB.CHEW PO ×2 (08:38→16:48)
[2025-03-05] MEDS: Ascorbic Acid 500 MG Tablet PO (08:38)
--- NOTE | 2025-03-05 11:24 | CASEMGMT ---
Social Work SW met with patient to complete initial assessment. Introduced self and role. Verified/updated contacts. Patient confirmed code status as DNR-CCA, no intubation. Educated to [facility] insurance with NRD 03/06 and continued stay is not guaranteed with each review. Pt's goal is to return home alone. It is unclear who manages pt's medications, if there is a nurse that visits pt monthly. SW to follow up with dtr. SW will continue to follow for DC planning and support. Tierra Rowland ACCOUNT GROUP SUPERVISOR COREMAKER
--- NOTE | 2025-03-05 11:40 | PHA.CONS_ITS ---
Documented by User: Olena Gaming 03/05/25 12:17 TCU RX Drug Regimen Review Subjective/Objective Subjective/Objective Subjective: 84 YOF admitted to TCU 03/04/25 s/p hospitalization at [facility] for a fall resulting in a hip fracture. On 03/02/25, the patient underwent a left hip cephalomedullary nail fixation. Admitted to TCU for rehabilitation and strengthening prior to discharge home where she resides alone. Objective: Allergies No Known Allergies Allergy (Verified 03/04/25 15:58) Current Medications Generic Name Dose Route Start Last Admin Trade Name Freq PRN Reason Stop Dose Admin Acetaminophen 1,000 mg 03/04/25 17:28 03/05/25 05:29 Acetaminophen 500 Mg Tablet PO 1,000 mg Q6H PRN Administration Pain Score 1-10 Ascorbic Acid 500 mg 03/05/25 10:00 03/05/25 08:38 Ascorbic Acid 500 Mg Tablet PO 500 mg DAILY GRAY Administration Aspirin 81 mg 03/04/25 17:00 03/05/25 08:38 Aspirin 81 Mg Tab.Chew PO 04/01/25 23:59 81 mg BIDCM GRAY Administration Clonazepam 0.5 mg 03/04/25 15:29 Clonazepam 0.5 Mg Tablet PO TID PRN anxiety Donepezil HCl 10 mg 03/05/25 10:00 03/05/25 08:38 Donepezil Hcl 10 Mg Tablet PO 10 mg DAILY GRAY Administration Escitalopram Oxalate 20 mg 03/05/25 10:00 03/05/25 08:38 Escitalopram Oxalate 20 Mg Tablet PO 20 mg DAILY GRAY Administration Levothyroxine Sodium 50 mcg 03/05/25 06:00 03/05/25 05:29 Levothyroxine 50 Mcg Tablet PO 50 mcg DAILY@0600 GRAY Administration Magnesium Citrate 300 ml 03/04/25 17:28 Magnesium Citrate 300 Ml PO DAILY PRN Constipation Senna/Docusate Sodium 1 tablet 03/04/25 22:00 03/05/25 08:38 Senna/Docusate Sodium 1 Tablet PO 1 tablet BID GRAY Administration Sodium Chloride 10 - 40 ml 03/04/25 15:17 0.9% Saline Lock 10 Ml Syringe IV UD PRN SALINE FLUSH Trazodone HCl 50 mg 03/04/25 22:00 03/04/25 21:51 Trazodone 50 Mg Tablet PO 50 mg QHS GRAY Administration Tuberculin PPD 0.1 ml 03/12/25 10:00 Tuberculin,Purif.Prot.Deriv. 50 Tu/Ml Vial ID 03/12/25 10:01 X1 ONE Problem List Urinary retention (Acute) Insomnia (Acute) Hypothyroidism (Acute) Depression (Acute) Anxiety (Acute) Dementia (Acute) Debility (Acute) Acute pain of left knee (Acute) Closed intertrochanteric fracture of left hip (Acute) Fall (Acute) Vital Signs Temp Pulse Resp BP Pulse Ox O2 Del Method 98.3 F 79 17 130/57 H 97 Room Air 03/05/25 08:32 03/05/25 05:12 03/05/25 08:32 03/05/25 08:32 03/05/25 08:32 03/05/25 08:32 Oxygen Delivery Method Room Air Weight: 58.513 kg Body Mass Index (BMI) 25.3 Sodium 140 mmol/L (133-145) 03/05/25 05:35 Potassium 3.3 mmol/L (3.3-5.1) 03/05/25 05:35 Chloride 102 mmol/L (98-108) 03/05/25 05:35 Carbon Dioxide 27.5 mmol/L (21.0-32.0) 03/05/25 05:35 Anion Gap 10 (5-15) 03/05/25 05:35 BUN 13 mg/dL (4-19) 03/05/25 05:35 Creatinine 0.78 mg/dL (0.70-1.20) 03/05/25 05:35 Est GFR (MDRD) Non-Af 74 (>60) 03/05/25 05:35 BUN/Creatinine Ratio 17.0 RATIO (10-20) 03/05/25 05:35 Glucose 100 mg/dL (70-99) H 03/05/25 05:35 Assessment/Plan: 1. Pain: Acetaminophen 1000mg PO Q6h PRN Pain 1-10. Please continue to monitor for increased/decreased S/S pain, PRN medication usage, LFT (AST 27, ALT 11 on 03/02/25). - The patient has used 2 doses of PRN Tylenol for pain rated 7/10. Post-med pain rated 0/10. patient's pain appears to be managed at this time. 2. Post-OP DVT Prophylaxis: Aspirin 81mg PO BID thru 04/01/25. Please continue to monitor for S/S bleeding/bruising, H/H (hgb 9, hct 25.8 on 03/05), platelets (195 on 03/05), S/S clot formation. 3. Hypothyroidism: Synthroid 50mcg PO daily. Please continue to monitor TSH (1.47 03/02/25), S/S hyper/hypothyroidism. 4. Dementia: Aricept 10mg PO Daily. Please continue to monitor for nausea, diarrhea, headache, hallucinations, vivid dreams 5. General wellness: Vitamin C 500mg PO daily. 6. Bowel: Senna/Docusate 1 tab PO BID, magnesium Citrate 300mL PO Daily PRN. Please continue to monitor for increased/decreased constipation and/or diarrhea. Please discontinued scheduled medication should patient develop diarrhea. -the Patient has not had a documented BM since admission (<24hr ago). If the patient does not have a BM in the next 48-72hr, please consider giving PRN medication, thank you. Assessment/Plan for indications treated with psychotropic medications: 1. Depression: Lexapro 20mg PO daily. Please continue to monitor for diarrhea, nausea, headache, anxiety or drowsiness, suicidal thoughts or behaviors (Boxed Warning), symptoms of bleeding, symptoms of serotonin syndrome (including agitation, confusion, hyperreflexia, rigidity/myoclonus, tremor, tachycardia, tachypnea), sodium levels (Na 140 on 03/05/25 ). -Monitor for efficacy including resident symptoms, behaviors and indications of distress. -Monitor for tolerability including mental status, cognition, excessive sleepiness, withdrawal or decreased participation in activities and decline in physical functioning. -Maximize use of nonpharmacologic/behavioral interventions to facilitate dose reduction or discontinuation as appropriate. -Please evaluate the appropriateness of GDR unless contraindicated. If appropriate, GDR should be attempted in 2 separate quarters within the first year of use or admission to TCU. -If GDR attempted, monitor resident symptoms/behaviors. 2. Insomnia: Trazodone 50mg PO QHS. Please continue to monitor for drowsiness, dizziness or confusion, dry mouth, constipation, symptoms of serotonin syndrome (including agitation, confusion, hyperreflexia, rigidity/myoclonus, tremor, tachycardia, tachypnea), suicidal thoughts or behaviors (Boxed Warning). -Monitor HR (can cause bradycardia or tachycardia). HR range since admission 79-92 BPM -Monitor for orthostatic hypotension, including postural dizziness, syncope or falls. Check orthostatic vital signs if suspicion of orthostasis. -Monitor for efficacy including resident symptoms, behaviors and indications of distress. -Monitor for restlessness, agitation, withdrawal from normal daily activities -Monitor for tolerability including mental status, cognition, excessive sleepiness, withdrawal or decreased participation in activities and decline in physical functioning. -Maximize use of nonpharmacologic/behavioral interventions to facilitate dose reduction or discontinuation as appropriate. -Please evaluate the appropriateness of GDR unless contraindicated. If appropriate, GDR should be attempted in 2 separate quarters within the first year of use or admission to TCU. -If GDR attempted, monitor resident symptoms/behaviors. 3. Anxiety: Clonazepam 0.5mg PO TID PRN. Please continue to monitor for sedation, mental status and cognition. Monitor for falls (risk factor for falls) and implement fall prevention strategies. Monitor for respiratory depression. RR range since admission (16-17 Breaths/min) -Monitor prn usage and efficacy of prn doses including resident symptoms, behaviors and indications of distress.Please continue to monitor for increased anxiety/ agitation. -Monitor for tolerability including mental status, cognition, excessive sleepiness, withdrawal or decreased participation in activities and decline in physical functioning. -Maximize use of nonpharmacologic/behavior interventions to minimize use of prn medication. Prn psychotropic order must be renewed at 14 days per policy. Evaluate continued need for medication, effect of prn medication on resident?s symptoms/distress and tolerability to determine the appropriateness of order renewal. Medical chart and medication regimen reviewed. The following medication irregularities or issues were identified: -No irregularities identified at time of medication list review. Date Date of Note: 03/05/25 Documented by User: Dr. Garfield Yo MD 03/05/25 13:40 TCU RX Drug Regimen Review Provider Comments Provider responsibility Provider Comments to Recommendations by Pharmacy Agree
[2025-03-05] MEDS: Tuberculin,Purif.prot.deriv. 50 TU/ML Vial 0.1 ML ID (13:11)
--- NOTE | 2025-03-05 15:08 | CHAPLAIN ---
Type of Pastoral Visit _x__ Initial Visit ___ Follow-up Visit ___ On-call Visit ___ General Patient Visit ___ Spiritual Assessment ___ Family Conference ___ Bereavement ___ Rapid Response ___ Code Blue ___ Other (describe below) Pastoral Care Referral From _x__ Patient ___ Family ___ Nurse ___ Physician ___ Cascade Operator ___ Press Reader ___ Other (describe below) Sacrament/Intervention _x__ Active listening ___ Anointing ___ Sikhism ___ Bereavement ___ Communion _x__ Karissa exploration ___ ___ Life review _x__ Prayer ___ Reconciliation ___ Sacrament of Sick _x__ Supportive presence ___ Wedding ___ Other (describe below) Pastoral Comments patient was seen briefly after her surgery earlier this week; pt has been moved to [facility] and she says that she remembers this quality assurance tech from that initial visit; pt speaks and then repeats several times about her pain level and that I've never had it this bad before, even after having back surgery previously; pt focuses on this during the visit; 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
[2025-03-05] MEDS: oxyCODONE 5 MG Tablet 2.5 MG PO (17:58)
[2025-03-05] MEDS: traZODone 50 MG Tablet PO (21:22)
[2025-03-05] MEDS: traMADol 50 MG Tablet PO (23:52)
[2025-03-05] MEDS: clonazePAM 0.5 MG Tablet PO (23:52)
[2025-03-06] MEDS: Levothyroxine 50 MCG Tablet PO (05:48)
[2025-03-06] MEDS: Acetaminophen 500 MG Tablet 1000 MG PO ×3 (05:48→22:13)
[2025-03-06 09:11] VITALS: BP 138/61; PULSE 89; RESP 16; TEMP 36.9; O2SAT 98
[2025-03-06] MEDS: Donepezil HCl 10 MG Tablet PO (09:15)
[2025-03-06] MEDS: Aspirin 81 MG TAB.CHEW PO ×2 (09:15→15:23)
[2025-03-06] MEDS: Senna/Docusate Sodium 1 Tablet PO ×2 (09:16→22:09)
[2025-03-06] MEDS: Escitalopram Oxalate 20 MG Tablet PO (09:16)
[2025-03-06] MEDS: Ascorbic Acid 500 MG Tablet PO (09:16)
[2025-03-06] MEDS: clonazePAM 0.5 MG Tablet 0.25 MG PO (10:03)
--- NOTE | 2025-03-06 11:43 | NURSING ---
Electrifier Operator Note; Activity Asset: Blanquita Jennings is independent in her choice of daily activities. Her family will visit and bring her items from home she may need or want. Moravian will visit w/her and she welcomes visits w/our ramp attendant and therapy dog as well. She will read, watch tv, work on word puzzles and rest when not in therapy. Staff will encourage social activities, remind her of weekly activities and respect her right to say no.
[2025-03-06] MEDS: Menthol/Lanolin/Calamine/Znox 113 GM Tube 1 APPLIC TOPICAL ×2 (14:03→22:08)
[2025-03-06] MEDS: traMADol 50 MG Tablet PO (15:23)
--- NOTE | 2025-03-06 16:01 | CASEMGMT ---
Social Work SW received several reports from staff that pt is very depressed and is voicing how depressed she is. Per nursing hand off from [facility], the dtr Maribeth, has set up a password for information, to not have pt's dtr, Annette, receive information. SW to explore both items with pt and dtr, Maribeth. - SW met with patient at bedside. Completed BIMS again to reassess cognition. Pt scored 10/15, same as on admission, unable to recall the 3 words, but oriented to date/time/place. SW completed PHQ-9 to assess depression, however, pt scored 01/15. Pt stated she has only felt depressed since hip fx. Prior to hip fx, she was independent, moving around well, and no mood issues. SW inquired about any family dynamics, specifically between two dtrs. Pt acknowledged there is tension between the two dtrs, but they get along. SW inquired about both dtrs getting information or being able to speak with staff during pt's stay. Pt confirmed. Pt states she speaks with both dtrs daily. Then, dtr Annette, called pt on room phone. SW excused self. - JANNA spoke with Dr. Yo on unit about pt's medications and PHQ-9 outcome. spoke with Maribeth and changed medications per her request, which is to wean the Klonopin, per PCPs request, and wean pt's pain medications to not increase confusion. - SW phoned dtr, Maribeth, to discuss depression and dynamic with sister. However, initially, dtr had several questions for this worker pertaining to insurance and DC plans. Dtr provided extensive history of the last 6 months for pt. Annette was having severe back pain issues and pt/Annette were beginning to argue, and Annette asked Maribeth to help with the pt. Pt moved to [place] September 2024 to [facility], which is in the backyard of Maribeth's house. Maribeth is caring for her 3 children, 2 of which are nonverbal autistic children that require additional needs. Though, Maribeth agreed to have pt move close to her and assist with ensuring pt's safety. Dennis has worked closely with PCP on additional services in the home for pt. [employer] has coordinated Family First Nurse, [employer], to assist with an automated pill dispenser and weekly visits. Another caregiver was hired twice weekly for socialization and grocery shopping, and dtr installed cameras inside the apartment. Housekeeping every other week recently started as well. Maribeth works full-time remotely and expressed feeling overwhelmed with taking on the needs of the pt. Dtr had previously toured [place] and [facility] (about two years ago) and liked [facility], if that opportunity was needed. Dtr is beginning to think seriously about having pt move into [place]. SW acknowledged caregiver burnout and AL can assist with the daily needs. Educated to private pay cost and typically ALs have pt's DC once the pt needs JACQUELINE or can no longer pay privately. Dtr was unaware of needing to move and ALs not accepting JACQUELINE. SW educated further to JACQUELINE and AL. Pt does have a life insurance policy, but Maribeth noted that Annette would not be happy if those funds were needed prior to pt's . SW encouraged dtr to contact [employer] to inquire about gardner value, early liquidation and if there would be a penalty. Dtr stated she also has an medical lab tech instructor that both pt and dtr use that could assist. SW agreed. Explained the [employer] can also be used to pay for pt's /burial expenses. Dtr inquired WVM. SW educated to same private pay policy, but [facility] has a SNF and pt could transfer to the SNF on [facility], where [facility] stands alone. Dtr expressed feeling overwhelmed with information. SW assisted dtr with verbal checklist of what to accomplish over the next week. As SW educated to [facility] insurance with NRD 03/11, EDC 03/14. Educated to POC meeting to be scheduled on 03/11. Suggested dtr contact [facility] to inquire about availability and pricing, to determine if pt can afford AL or if there is an appropriate apt available. Encouraged to tour [facility] if interested as well. Dtr agreed, though, requested this worker send dtr an email of conversation. SW agreed. Dtr provided email address. Dtr inquired about pt having a psych evaluation. SW educated to [facility] not having a psychologist or psychiatrist to do an evaluation as dtr was seeking. However, educated to this worker's role and the conversations between this worker and pt have been productive. SW completed PHQ-9 and pt did not indicate depression prior to hip fx, though, acknowledged PCP and dtr state otherwise. Dtr shared that pt's third dtr in 2020 from COVID and pt has declined mentally since then. SW offered condolences and noted pt did share that event. SW explained Dr. Yo made medication adjustments per dtr and PCP request for mental health and PCP can continue managing at this time. SW will continue monitoring and assessing pt throughout stay and intervene as necessary. Dtr appreciative. SW then broached topic of dynamics with Annette and inquired about the password for information. Dtr explained that she updates Annette with information as she needs to know it, but is concerned with Annette calling into telling staff it was Maribeth to get information about pt, share her opinions of the care/treatment plan and then have things changed. SW acknowledged. SW explained this worker spoke with pt twice and pt wishes to have both dtrs listed as contacts and for Annette to get information if she asks. Dtr questioned even though she is the healthcare proxy. SW that since pt is still competent, the healthcare POA or proxy does not become active until the pt cannot make her own decisions. Dtr acknowledged and concerned with Annette having access to information, but accepted. SW explained if something changes that affects the pts care or safety, that can be adjusted, but currently, having both dtrs listed as contacts is the pt's wish. Dtr accepted. JANNA summarized conversation and dtr appreciative of time and assistance. Phone call time: 57:08 - JANNA updated charge nurse and director of contacts. Nursing communication non-order entered. Email of conversation sent to dtr, per request. SW will continue to follow. Tierra Rowland MSW RUBBING BED OPERATOR
--- NOTE | 2025-03-06 18:00 | NURSING ---
pt pain is not relieved by medication, repositioning, or polar care. Dr notified- orders given for doppler, xray, and arthritic compound- oxy discontinued by daughter per dr aguiar
--- NOTE | 2025-03-06 18:15 | RAD_ITS ---
PROCEDURE: KNEE 1 OR 2 VIEWS 03/06/2025 REASON FOR EXAM: PAIN TECHNIQUE: 3 views of the left knee COMPARISON: 03/01/2025 FINDINGS: Bones: No fracture. No suspicious bone lesion. Irregularity of the lateral femoral condyle is unchanged and of uncertain significance. CT or MRI may be useful. Joints: Mild joint space narrowing consistent with mild arthrosis. Effusion: No effusion. Soft tissues: Soft tissues are unremarkable. Other: RAD/Knee 1 or 2 Views IMPRESSION: No change from 03/01/2025. CT or MRI may be useful. Reading Location: [id number]
--- NOTE | 2025-03-06 18:48 | NURSING ---
spoke to pt daughter bladimir- daughter gave ok to give oxy if patient pain is not relieved by other measures-
--- NOTE | 2025-03-06 18:53 | NURSING ---
Daughter, Joann, present in patient's room. Per daughter she is OK with ordering Oxy for severe pain for patient. Call placed to Dr. Yo, new order for oxy PRN. Parameters placed for tramadol and oxy. VORB. Updated Dr. Yo on xray results for left knee. No new orders.
[2025-03-06 20:00] VITALS: PULSE 81; RESP 16; O2SAT 98
[2025-03-06] MEDS: clonazePAM 0.5 MG Tablet PO (22:06)
[2025-03-06] MEDS: Arthritis Pain Compound 60 CLICK TUBE TOPICAL (22:07)
[2025-03-06] MEDS: traZODone 50 MG Tablet PO (22:09)
[2025-03-07] MEDS: clonazePAM 0.5 MG Tablet 0.25 MG PO (05:27)
[2025-03-07] MEDS: Levothyroxine 50 MCG Tablet PO (05:28)
[2025-03-07] MEDS: Acetaminophen 500 MG Tablet 1000 MG PO ×3 (05:29→20:52)
[2025-03-07 05:40] VITALS: PULSE 75; RESP 18; O2SAT 95
[2025-03-07] MEDS: Magnesium Citrate 300 ML PO (05:46)
[2025-03-07 06:59] LABS: Hematocrit 26.2 % (37-47)
[2025-03-07] MEDS: Aspirin 81 MG TAB.CHEW PO ×2 (08:39→17:10)
[2025-03-07] MEDS: Arthritis Pain Compound 60 CLICK TUBE TOPICAL ×2 (08:39→20:47)
[2025-03-07] MEDS: Donepezil HCl 10 MG Tablet PO (08:39)
[2025-03-07] MEDS: Menthol/Lanolin/Calamine/Znox 113 GM Tube 1 APPLIC TOPICAL ×2 (08:40→20:52)
[2025-03-07] MEDS: Ascorbic Acid 500 MG Tablet PO (08:40)
[2025-03-07] MEDS: Escitalopram Oxalate 20 MG Tablet PO (08:41)
[2025-03-07] MEDS: Senna/Docusate Sodium 1 Tablet PO (08:41)
[2025-03-07 10:00] VITALS: BP 130/54; PULSE 76; RESP 16; TEMP 36.8; O2SAT 99
[2025-03-07] MEDS: clonazePAM 0.5 MG Tablet PO (20:48)
[2025-03-07] MEDS: traZODone 50 MG Tablet PO (20:49)
[2025-03-08] MEDS: clonazePAM 0.5 MG Tablet 0.25 MG PO (06:27)
[2025-03-08] MEDS: Levothyroxine 50 MCG Tablet PO (06:28)
[2025-03-08] MEDS: Acetaminophen 500 MG Tablet 1000 MG PO ×3 (06:28→20:21)
[2025-03-08 08:59] VITALS: BP 126/53; PULSE 79; RESP 17; TEMP 36.4; O2SAT 99
[2025-03-08] MEDS: Menthol/Lanolin/Calamine/Znox 113 GM Tube 1 APPLIC TOPICAL ×2 (09:03→20:22)
[2025-03-08] MEDS: Donepezil HCl 10 MG Tablet PO (09:03)
[2025-03-08] MEDS: Aspirin 81 MG TAB.CHEW PO ×2 (09:03→16:43)
[2025-03-08] MEDS: Arthritis Pain Compound 60 CLICK TUBE TOPICAL ×2 (09:03→20:22)
[2025-03-08] MEDS: Senna/Docusate Sodium 1 Tablet PO ×2 (09:04→20:23)
[2025-03-08] MEDS: Escitalopram Oxalate 20 MG Tablet PO (09:04)
[2025-03-08] MEDS: Ascorbic Acid 500 MG Tablet PO (09:04)
[2025-03-08] MEDS: traZODone 50 MG Tablet PO (20:22)
[2025-03-08] MEDS: clonazePAM 0.5 MG Tablet PO (20:22)
[2025-03-09] MEDS: Acetaminophen 500 MG Tablet 1000 MG PO ×3 (05:34→21:05)
[2025-03-09] MEDS: clonazePAM 0.5 MG Tablet 0.25 MG PO (05:34)
[2025-03-09] MEDS: Levothyroxine 50 MCG Tablet PO (05:34)
[2025-03-09 07:49] VITALS: BP 142/58; PULSE 76; RESP 18; TEMP 36.3; O2SAT 97
[2025-03-09] MEDS: Donepezil HCl 10 MG Tablet PO (07:54)
[2025-03-09] MEDS: Aspirin 81 MG TAB.CHEW PO (07:54)
[2025-03-09] MEDS: Escitalopram Oxalate 20 MG Tablet PO (07:54)
[2025-03-09] MEDS: Ascorbic Acid 500 MG Tablet PO (07:54)
[2025-03-09] MEDS: Senna/Docusate Sodium 1 Tablet PO ×2 (07:54→21:01)
[2025-03-09] MEDS: Menthol/Lanolin/Calamine/Znox 113 GM Tube 1 APPLIC TOPICAL ×2 (07:55→21:00)
[2025-03-09] MEDS: traMADol 50 MG Tablet PO ×2 (07:55→16:18)
[2025-03-09] MEDS: Arthritis Pain Compound 60 CLICK TUBE TOPICAL ×2 (07:55→21:00)
--- NOTE | 2025-03-09 10:00 | NURSING ---
Update from optics test technician that resident positive for DVT left peroneal vein. Updated Dr. Yo, order for eliquis 10mg BID x7 days then 5mg BID through June 08, 2025. Updated resident.
[2025-03-09] MEDS: APIXABAN 5 MG TABLET 10 MG PO ×2 (10:58→21:02)
--- NOTE | 2025-03-09 11:13 | NURSING ---
Offered covid vaccine, VIS provided. Resident declines at this time.
--- NOTE | 2025-03-09 13:02 | NURSING ---
spoke to pt daughter Maribeth-provided update-= pt positive for DVT- started on eliquis
[2025-03-09] MEDS: clonazePAM 0.5 MG Tablet PO (21:01)
[2025-03-09] MEDS: traZODone 50 MG Tablet PO (21:01)
[2025-03-10] MEDS: Acetaminophen 500 MG Tablet 1000 MG PO ×3 (05:33→20:55)
[2025-03-10] MEDS: clonazePAM 0.5 MG Tablet 0.25 MG PO (05:33)
[2025-03-10] MEDS: Levothyroxine 50 MCG Tablet PO (05:34)
[2025-03-10 06:05] VITALS: PULSE 70; RESP 16; O2SAT 98
[2025-03-10] MEDS: Donepezil HCl 10 MG Tablet PO (09:29)
[2025-03-10] MEDS: Arthritis Pain Compound 60 CLICK TUBE TOPICAL ×2 (09:29→20:55)
[2025-03-10] MEDS: Senna/Docusate Sodium 1 Tablet PO ×2 (09:30→20:55)
[2025-03-10] MEDS: Escitalopram Oxalate 20 MG Tablet PO (09:30)
[2025-03-10] MEDS: APIXABAN 5 MG TABLET 10 MG PO ×2 (09:30→20:55)
[2025-03-10] MEDS: Ascorbic Acid 500 MG Tablet PO (09:31)
[2025-03-10] MEDS: Menthol/Lanolin/Calamine/Znox 113 GM Tube 1 APPLIC TOPICAL ×2 (09:33→20:46)
--- NOTE | 2025-03-10 10:24 | NURSING ---
Spoke with dtkelvin Stahl about ortho follow-up appt. Discussed if she thinks family would be able to transport and options of physicians or [facility]. She will speak with her and think about the options. Says she will discuss tomorrow at the care plan meeting at 2pm.
[2025-03-10 14:50] VITALS: BMI 25.4
[2025-03-10 16:00] VITALS: BP 132/57; PULSE 73; RESP 14; TEMP 36.3; O2SAT 98
--- NOTE | 2025-03-10 18:00 | NURSING ---
Patient reports to this nurse that she feels very depressed today and asked that Lexapro be increased. Dr. Yo made aware and Lexapro increased from 20mg to 30mg. Daughter Maribeth made aware.
[2025-03-10] MEDS: traZODone 50 MG Tablet PO (20:55)
[2025-03-10] MEDS: clonazePAM 0.5 MG Tablet PO (20:55)
[2025-03-11 02:32] VITALS: PULSE 68; RESP 18; O2SAT 96
[2025-03-11] MEDS: clonazePAM 0.5 MG Tablet 0.25 MG PO (05:10)
[2025-03-11] MEDS: Levothyroxine 50 MCG Tablet PO (05:10)
[2025-03-11] MEDS: Acetaminophen 500 MG Tablet 1000 MG PO ×3 (05:10→21:01)
--- NOTE | 2025-03-11 06:13 | NURSING ---
Crackles auscultated posterior bilat lower lobes. Denies SOB. SPO2 WNL on RA. Written communication left for Dr. Yo review this AM.
[2025-03-11 06:15] VITALS: O2SAT 96
--- NOTE | 2025-03-11 07:37 | RAD_ITS ---
PROCEDURE: CHEST PA AND LATERAL 03/11/2025 REASON FOR EXAM: BIBASILAR CRACKLES. TECHNIQUE: Frontal and lateral views of the chest. COMPARISON: 03/01/2025. FINDINGS: Unchanged bilateral chronic interstitial pulmonary thickening. Increased bilateral basilar atelectatic pulmonary changes. Unchanged mild cardiomegaly. There is no demonstrated pleural abnormality. Normal mediastinum and beau. Normal visualized pulmonary arteries. Mild atheromatous plaques of the visualized aortic arch and descending thoracic aorta. Diffuse spondylosis of the visualized thoracic spine. Normal visualized ribs, clavicles, and shoulders. There is no demonstrated abnormality of the visualized soft tissue structures of the upper abdomen. RAD/Chest PA and Lateral IMPRESSION: 1. Unchanged bilateral chronic interstitial pulmonary thickening. 2. Increased bilateral basilar atelectatic pulmonary changes. 3. Unchanged mild cardiomegaly. [facility] [id number]
[2025-03-11] MEDS: Ascorbic Acid 500 MG Tablet PO (08:33)
[2025-03-11] MEDS: Arthritis Pain Compound 60 CLICK TUBE TOPICAL ×2 (08:33→21:04)
[2025-03-11] MEDS: APIXABAN 5 MG TABLET 10 MG PO ×2 (08:33→20:58)
[2025-03-11] MEDS: Escitalopram Oxalate 20 MG Tablet 30 MG PO (08:33)
[2025-03-11] MEDS: Donepezil HCl 10 MG Tablet PO (08:35)
[2025-03-11] MEDS: Menthol/Lanolin/Calamine/Znox 113 GM Tube 1 APPLIC TOPICAL ×2 (08:38→21:05)
--- NOTE | 2025-03-11 08:41 | NURSING ---
Rotary Drier Feeder Note; MDS for 03/11/2025 Complete
[2025-03-11 10:53] VITALS: BP 118/48; PULSE 67; RESP 18; TEMP 36.5; O2SAT 100
--- NOTE | 2025-03-11 12:40 | CASEMGMT ---
Social Work SW completed BIMS (09/02) and PHQ-2 (09/14) for MDS assessment. SW explored positive responses, but pt was not specific in reasons why. Though, depression is chronic, per CR and dtr. Pt is managed by several medications. SW will continue to monitor. Tierra Rowland TRAINING AND DEVELOPMENT MANAGER VISITOR SERVICES SPECIALIST
--- NOTE | 2025-03-11 14:01 | CASEMGMT ---
Social Work IDT met with patient and dtrKenya, for care plan meeting. Discussed patient's progress in PT/OT/ST/SN. Educated to [facility] insurance with NRD 03/16, EDC 03/20. Provided pt/family with written communication of insurance process and copay coverage during stay. IDT recommending pt DC to an AL or SNF, not to return home alone. Pt requires 24/7 care and assistance with IADLs. Pt's cognition is very poor - scored 29/50 on BCAT. SW sent resources to dtr prior on alternate DC plan. Answered dtr's questions. Dtr stated to protect pt's mental health, dtr is interested in having pt DC to dtr's house and she can provide the care at home. SW discussed caregiver burnout and dtr already having her immediate family to care for and working full-time. Recommended hiring caregivers to assist in the home. Dtr inquired about pricing. SW sent resources to dtr in previous email for dtr to review. Explained 8 hrs/day of aides can cost the same as an AL. Encouraged dtr to consider caring for pt overnight as well. Dtr expressed understanding and will consider all the options. Therapy offered training next week prior to DC. Dtr agreed and will check schedule. SW will continue to follow for DC planning assistance. Tierra Rowland MSW SCAFFOLD WORKER
--- NOTE | 2025-03-11 19:04 | NURSING ---
police shift commander noted crackles in bases of lungs last night. Dr. Yo was made aware and he ordered CXR. CXR showed no acute findings. NNO.
[2025-03-11] MEDS: clonazePAM 0.5 MG Tablet PO (20:57)
[2025-03-11] MEDS: traZODone 50 MG Tablet PO (20:59)
[2025-03-12] MEDS: clonazePAM 0.5 MG Tablet 0.25 MG PO (05:52)
[2025-03-12] MEDS: Levothyroxine 50 MCG Tablet PO (05:54)
[2025-03-12] MEDS: Acetaminophen 500 MG Tablet 1000 MG PO ×3 (05:56→23:34)
[2025-03-12 06:00] LABS: Absolute Lymphocyte Count 1.55 X10^3/uL (0.83-4.51); Absolute Neutrophil Count 7.8 X10^3/uL (2.0-7.7); Basophil# 0.09 X10^3/uL; Basophil% 0.9 % (0-1); Eosinophil# 0.26 X10^3/uL; Eosinophils% 2.5 % (0-5); Hematocrit 28.8 % (37-47); Hemoglobin 9.5 g/dL (12.0-15.0); Lymphocyte # 1.55 X10^3/ul (0.83-4.51); Lymphocyte % 14.7 % (19-41); Mean Corpuscular Hgb 30.7 pg (27.0-32.0); Mean Corpuscular Volume 93.2 fL (81-99); Mean Platelet Vol. 9.4 fl (6.2-12.0); Monocyte# 0.62 X10^3/uL; Monocyte% 5.9 % (0-10); NRBC Flagged by Analyzer 0 % (0-5); Neutrophil # 7.82 X10^3/uL (2.7-7.7); Platelet Count 312 K/mm3 (150-450); RBC Distribution Width SD 52.6 fl (35.1-43.9); Red Blood Count 3.09 M/mm3 (4.2-5.4); White Blood Count 10.6 K/mm3 (4.4-11.0)
[2025-03-12 06:39] LABS: Anion Gap 9 (5-15); BUN 15 mg/dL (4-19); BUN/Creat Ratio 19.2 RATIO (10-20); Calcium,Total 8.6 mg/dL (7.6-11.0); Carbon Dioxide 26.6 mmol/L (21.0-32.0); Chloride 105 mmol/L (98-108); EST Glomerular Filtration Rate 73 (>60); Estimated Creatinine Clearance 42.05 ml/min (50-250); Glucose 90 mg/dL (70-99); Potassium 3.9 mmol/L (3.3-5.1); Sodium Level 140 mmol/L (133-145)
[2025-03-12 09:16] VITALS: BP 109/42; PULSE 79; RESP 16; TEMP 36.9; O2SAT 99
[2025-03-12] MEDS: Arthritis Pain Compound 60 CLICK TUBE TOPICAL ×2 (09:22→23:28)
[2025-03-12] MEDS: Donepezil HCl 10 MG Tablet PO (09:22)
[2025-03-12] MEDS: APIXABAN 5 MG TABLET 10 MG PO ×2 (09:23→23:28)
[2025-03-12] MEDS: Menthol/Lanolin/Calamine/Znox 113 GM Tube 1 APPLIC TOPICAL ×2 (09:23→23:30)
[2025-03-12] MEDS: Ascorbic Acid 500 MG Tablet PO (09:24)
[2025-03-12] MEDS: Escitalopram Oxalate 20 MG Tablet 30 MG PO (09:24)
--- NOTE | 2025-03-12 09:33 | NURSING ---
Addendum entered by Kaylee Nguyễn 03/12/25 10:16: Call from Maribeth that [facility] reporting they have no record of that trip on their end when she called to pay. She expressed concern with using [facility] after they don't have record of setting up transport with RN . She asked about using [facility]. RN provided [facility] number and asked her to call back for any issues. Original Note: Set up [facility] WC transport for appt on 03/16/25. Updated Maribeth, provided physicians phone number and she will call and pay. Maribeth asked about her Jose Rafael coming in for therapy training tomorrow, asked that PT reach out to him. Updated Larisa PT.
[2025-03-12] MEDS: Tuberculin,Purif.prot.deriv. 50 TU/ML Vial 0.1 ML ID (12:14)
--- NOTE | 2025-03-12 14:23 | CASEMGMT ---
Social Work Several reports from therapy and nursing that pt was fixated on reporting being depressed d/t her daughters fighting. SW attempted to see pt twice and both times she was unavailable. SW will continue to attempt and follow. Tierra Rowland STRATEGY MANAGER ELEMENTARY SCHOOL MUSIC TEACHER
[2025-03-12] MEDS: traZODone 50 MG Tablet PO (23:28)
[2025-03-12] MEDS: Senna/Docusate Sodium 1 Tablet PO (23:29)
[2025-03-12] MEDS: clonazePAM 0.5 MG Tablet PO (23:34)
[2025-03-13] MEDS: clonazePAM 0.5 MG Tablet 0.25 MG PO (06:48)
[2025-03-13] MEDS: Levothyroxine 50 MCG Tablet PO (06:54)
[2025-03-13] MEDS: Acetaminophen 500 MG Tablet 1000 MG PO ×3 (06:56→21:46)
[2025-03-13] MEDS: Ascorbic Acid 500 MG Tablet PO (09:47)
[2025-03-13] MEDS: Escitalopram Oxalate 20 MG Tablet 30 MG PO (09:47)
[2025-03-13] MEDS: Donepezil HCl 10 MG Tablet PO (09:48)
[2025-03-13] MEDS: APIXABAN 5 MG TABLET 10 MG PO ×2 (09:48→21:42)
[2025-03-13] MEDS: Arthritis Pain Compound 60 CLICK TUBE TOPICAL ×2 (09:49→21:42)
[2025-03-13] MEDS: Menthol/Lanolin/Calamine/Znox 113 GM Tube 1 APPLIC TOPICAL ×2 (09:54→21:47)
[2025-03-13 10:00] VITALS: BP 120/47; PULSE 74; RESP 18; TEMP 36.3; O2SAT 99
--- NOTE | 2025-03-13 10:44 | CASEMGMT ---
Social Work HEAVENLY attended therapy training with CINEMA OPERATOR. Requested to speak with this worker on DC plans and options. SW spoke with HEAVENLY privately. answered HEAVENLY's questions. HEAVENLY stated his asked him to be present and provide an objective point of view with pt's needs. HEAVENLY stated he does not feel taking pt home will be the best option, and that when they moved the move to [place], they probably should have put her in an AL then. HEAVENLY is realistic to pt's needs and lack of availability his has to care for her. SW explained IDTs recommendation is AL or SNF as she needs 24/7 care. HEAVENLY aware that once funds are liquidated, she will need JACQUELINE and would have to move from an AL to a SNF, so for pt to just DC to a SNF initially. SW agreed. HEAVENLY stated his to meeting with an elder law reconciliation specialist to assist with managing pt's assets, in preparation for placement. HEAVENLY stated he will speak with his , who will ultimately make the final decision. SW explained this worker will assist with DC planning. HEAVENLY stated possibly having pt DC home first then go to a SNF because it will take time to get things in order. SW explained it typically is a more seamless transition SNF to SNF and with the assistance of this worker. The DC can be planned with the time given from insurance, as long as family provides SNF options. HEAVENLY expressed understanding and appreciative of this worker's assistance. JANNA will continue to follow. Tierra Rowland MSW TEST FIXTURE DESIGNER
--- NOTE | 2025-03-13 14:14 | PCA ---
[facility] called to verify the transport for 03/16 was still needed, I said as far as I can tell it is. She stated that because of some confusion over appt, they will transport patient and bill family afterward.
--- NOTE | 2025-03-13 14:32 | CASEMGMT ---
Social Work SW received call from dtr. Dtr confirmed she is meeting with an elder law mortgage loan processing clerk on March 24. Dtr scheduled tour at [facility] on 03/17. Dtr still uncertain which direction to take for pt's DC, but is considering LTC. SW offered to send referral to [facility] to determine acceptance prior to tour. Dtr agreed and appreciative of assistance. - SW sent referral to [facility] for intermediate care via [facility]. Tierra Rowland COMMERCIAL LOAN ADMINISTRATOR COMMERCIAL LOAN UNDERWRITER
[2025-03-13] MEDS: traZODone 50 MG Tablet PO (21:42)
[2025-03-13] MEDS: Senna/Docusate Sodium 1 Tablet PO (21:42)
[2025-03-13] MEDS: clonazePAM 0.5 MG Tablet PO (21:42)
[2025-03-14] MEDS: clonazePAM 0.5 MG Tablet 0.25 MG PO (05:28)
[2025-03-14] MEDS: Levothyroxine 50 MCG Tablet PO (05:28)
[2025-03-14] MEDS: Acetaminophen 500 MG Tablet 1000 MG PO ×3 (05:29→21:11)
[2025-03-14] MEDS: APIXABAN 5 MG TABLET 10 MG PO ×2 (08:48→21:14)
[2025-03-14] MEDS: Arthritis Pain Compound 60 CLICK TUBE TOPICAL ×2 (08:48→21:08)
[2025-03-14] MEDS: Escitalopram Oxalate 20 MG Tablet 30 MG PO (08:48)
[2025-03-14] MEDS: Donepezil HCl 10 MG Tablet PO (08:48)
[2025-03-14] MEDS: Ascorbic Acid 500 MG Tablet PO (08:50)
[2025-03-14] MEDS: Menthol/Lanolin/Calamine/Znox 113 GM Tube 1 APPLIC TOPICAL ×2 (08:52→21:08)
[2025-03-14] MEDS: Hydrocortisone 25 MG Suppository RC (09:56)
[2025-03-14 10:00] VITALS: BP 132/68; PULSE 75; RESP 18; TEMP 36.7; O2SAT 99
[2025-03-14 19:40] VITALS: PULSE 73; RESP 16; O2SAT 96
[2025-03-14] MEDS: clonazePAM 0.5 MG Tablet PO (21:08)
[2025-03-14] MEDS: traZODone 50 MG Tablet PO (21:09)
[2025-03-15] MEDS: clonazePAM 0.5 MG Tablet 0.25 MG PO (05:02)
[2025-03-15] MEDS: Levothyroxine 50 MCG Tablet PO (05:03)
[2025-03-15] MEDS: Acetaminophen 500 MG Tablet 1000 MG PO ×3 (05:06→21:05)
[2025-03-15 05:16] VITALS: PULSE 80; RESP 18; O2SAT 100
[2025-03-15 09:49] VITALS: BP 128/53; PULSE 77; RESP 17; TEMP 36.4; O2SAT 99
[2025-03-15] MEDS: Arthritis Pain Compound 60 CLICK TUBE TOPICAL ×2 (09:54→21:07)
[2025-03-15] MEDS: Menthol/Lanolin/Calamine/Znox 113 GM Tube 1 APPLIC TOPICAL ×2 (09:54→21:06)
[2025-03-15] MEDS: Escitalopram Oxalate 20 MG Tablet 30 MG PO (09:54)
[2025-03-15] MEDS: Donepezil HCl 10 MG Tablet PO (09:54)
[2025-03-15] MEDS: APIXABAN 5 MG TABLET 10 MG PO ×2 (09:54→21:06)
[2025-03-15] MEDS: Ascorbic Acid 500 MG Tablet PO (09:55)
[2025-03-15] MEDS: clonazePAM 0.5 MG Tablet PO (21:05)
[2025-03-15] MEDS: traZODone 50 MG Tablet PO (21:06)
[2025-03-16] MEDS: Levothyroxine 50 MCG Tablet PO (05:18)
[2025-03-16] MEDS: clonazePAM 0.5 MG Tablet 0.25 MG PO (05:18)
[2025-03-16] MEDS: Acetaminophen 500 MG Tablet 1000 MG PO ×3 (05:18→20:38)
[2025-03-16 09:42] VITALS: BP 113/72; PULSE 76; RESP 17; TEMP 36.9; O2SAT 99
[2025-03-16] MEDS: Menthol/Lanolin/Calamine/Znox 113 GM Tube 1 APPLIC TOPICAL ×2 (09:46→20:42)
[2025-03-16] MEDS: Arthritis Pain Compound 60 CLICK TUBE TOPICAL ×2 (09:46→20:38)
[2025-03-16] MEDS: Escitalopram Oxalate 20 MG Tablet 30 MG PO (09:47)
[2025-03-16] MEDS: Ascorbic Acid 500 MG Tablet PO (09:48)
[2025-03-16] MEDS: Donepezil HCl 10 MG Tablet PO (09:49)
[2025-03-16] MEDS: APIXABAN 5 MG TABLET PO ×2 (11:39→20:41)
--- NOTE | 2025-03-16 12:42 | MDS.RN ---
Information for the MDS was obtained from review of the clinical record, interview of resident, staff, and direct observation of resident?s care.
--- NOTE | 2025-03-16 15:58 | CASEMGMT ---
Social Work Insurance issued LCD 03/18, DC 03/19 SW spoke with pt upon return of appt. SW provided NOMNC to pt and educated to appeal rights. Pt verbalized understanding and denied appeal. Pt is agreeable to DC, and will await dtr's decision on DC plan. - SW phoned dtr to discuss. [facility] can accept in LTC. Dtr is scheduled to tour tomorrow, but is leaning toward placement. Dtr to notify this worker of decision after tour. Dtr inquired further about [facility] coverage with INN and OON. SW educated to skilled vs intermediate, INN/OON coverage, part B therapies. explained [facility] is a senior living home and [facility] is a longterm. Educated to skilled services can resume when there is a change in condition. Encouraged dtr to focus on touring the facility and deciding on a facility. Dtr will tour tomorrow at 11 am. Tierra HUYNH
--- NOTE | 2025-03-16 20:13 | PCM.DC.SUM ---
Providers Date of Admission: 03/04/25 Primary Care Physician: Dr. Anaid Luna MD Reason For Visit: LEFT HIP PAIN W/ INTERTROCHANTERIC FX Diagnosis Discharge Diagnosis (1) Debility: Status: Acute Code(s): R53.81 - Other malaise (2) Fall: Status: Inactive Code(s): W19.XXXA - Unspecified fall, initial encounter (3) Closed intertrochanteric fracture of left hip: Status: Inactive Code(s): S72.142A - Displaced intertrochanteric fracture of left femur, initial encounter for closed fracture (4) Acute pain of left knee: Status: Resolved Code(s): M25.562 - Pain in left knee (5) Dementia: Status: Acute Code(s): F03.90 - Unspecified dementia, unspecified severity, without behavioral disturbance, psychotic disturbance, mood disturbance, and anxiety (6) Anxiety: Status: Acute Code(s): F41.9 - Anxiety disorder, unspecified (7) Depression: Status: Acute Code(s): F32.A - Depression, unspecified (8) Hypothyroidism: Status: Acute Code(s): E03.9 - Hypothyroidism, unspecified (9) Insomnia: Status: Acute Code(s): G47.00 - Insomnia, unspecified (10) Urinary retention: Status: Acute Code(s): R33.9 - Retention of urine, unspecified Plan 84 year old female with below past medical history hospitalized for fall, left hip fracture, underwent left hip cephalomedullary nail fixation 03/02/[address] Overton, complicated by left knee pain, admitted to TCU with debility, here for rehabilitation, strengthening, prior to discharge home alone. Debility - PT/OT. Pain - Tylenol 1000mg q6 prn pain (1-10). Bowel - senna/colace 1 tablet bid, Magnesium citrate 300mL daily prn. Adult immunization - Administer pneumonia vaccine, covid vaccine, flu vaccine as appropriate. DVT prophylaxis - Aspirin 81mg bid thru 04/01/2025. Vitamin C deficiency - Vitamin C 500mg daily. Anxiety - Clonazepam 0.5mg tid prn, stable chronic custodial use, GDR not recommended. Dementia NOS - Donepezil 10mg daily. Depression - Lexapro 20mg daily, stable chronic custodial use, GDR not recommended. Hypothyroidism - Levothyroxine 50mcg daily. Insomnia - Trazodone 50mg qhs, stable chronic custodial use, GDR not recommended. Medications at Discharge Home Medications ascorbic acid (vitamin C) 500 mg tablet (C-500) 500 mg PO DAILY supplement 03/01/25 donepezil 10 mg tablet 10 mg PO DAILY dementia 03/01/25 escitalopram oxalate 20 mg tablet 20 mg PO DAILY anxiety 03/01/25 levothyroxine 50 mcg tablet 50 mcg PO DAILY thyroid 03/01/25 trazodone 50 mg tablet 50 mg PO QHS anxiety 03/01/25 acetaminophen 500 mg tablet 1,000 mg (2 x 500 mg) PO Q8 #0 tabs 03/16/25 apixaban 5 mg tablet (Eliquis) 5 mg PO BID #0 tabs 03/16/25 clonazepam 0.5 mg tablet 0.25 mg (1/2 x 0.5 mg) PO 0600 3 days #2 tabs 03/16/25 clonazepam 0.5 mg tablet 0.5 mg PO QHS 3 days #3 tabs 03/16/25 sennosides 8.6 mg-docusate sodium 50 mg tablet (Stimulant Laxative Plus) 1 tab PO BID #0 tabs 03/16/25 tramadol 50 mg tablet 50 mg PO Q6H PRN PRN Pain Score 1-5 3 days #12 tabs 03/16/25 Hospital Course Operations - (See below.) Procedures None Summary of Care Provided Minutes Spent on Discharge: 35 Hospital Course: 84 year old female with below past medical history hospitalized for fall, left hip fracture, underwent left hip cephalomedullary nail fixation 03/02/[address] Overton, complicated by left knee pain, admitted to TCU with debility, here for rehabilitation, strengthening, prior to discharge home alone. 03/09/2025 Doppler ultrasound left lower extremity positive for dvt, treat with Eliquis 5mg bid thru 06/08/2025. Discharge to [facility], intermediate, part B therapies. Physical Exam Const alert General Appearance: cooperative HEENT normocephalic Eyes PERRL and EOMs intact bilaterally Neck supple, no JVD and no carotid bruits Resp normal respiratory effort, normal air movement and clear to auscultation bilaterally Cardio regular rate and regular rhythm GI normal to inspection, nondistended, normoactive bowel sounds, non-tender and non-distended Bladder / Kidney Exam: catheter in place urethral Extremity normal capillary refill General Extremity: Negative for edema Skin no rashes or lesions noted General Skin Exam: no breakdown Psych affect normal Appearance: appropriate Weight / BMI Weight Weight: 58.967 kg Body Mass Index (BMI) 25.4 ABG / Lab / Microbiology Data 03/12/25 05:26 03/12/25 05:26 D/C Instructions Discharge Diet: No restrictions Discharge Activity: Return to Normal Activity, May Shower and Use Walker Weight Bearing Status: Weight bearing as tolerated Call your doctor if you observe: Fever of 101 or Higher, Inability to urinate, Inability to have a bowel movement, Shortness of breath, Dizziness, Fainting spells, Swelling in the ankles, Chest pain and Uncontrolled pain DC O2, CPAP, BIPAP Needs Home O2 Discharge instructions: No Additional Instructions: Discharge to [facility], intermediate, part B therapies. Please Follow Up With: Esther Lau When: As scheduled. Meaningful Use Info Meaningful Use Meaningful Use Diagnoses (Choose all that apply): None applicable Ischemic Stroke Statin Dosing Therapy Reference: STATIN DOSE THERAPY REFERENCE: * Patients > 75 years receive moderate or high dose statin therapy. * Patients 75 years or YOUNGER should receive HIGH intensity statin dose unless contraindicated. You will be required to document reason for non-treatment if statin daily dose does not meet guidelines. HIGH DOSE STATIN THERAPY DAILY Atorvastatin > than or = to 40 mg Rosuvastatin > than or = to 20 mg Amlodipine + Atorvastatin > than or = to 2.5/40 mg Ezetimibe + Simvastatin 10/80 mg Simvastatin 80mg Discharge Plan Admission Admit Date/Time: 03/04/25 15:04 Primary Reason for Your Visit: Debility. Attending Provider: Garfield Yo Chi Primary Care Provider: Anaid Luna Instructions Additional Instructions / Restrictions: Discharge to [facility], intermediate, part B therapies. Discharge Orders/Prescriptions Prescriptions: New acetaminophen 500 mg Tablet 1,000 mg PO Q8 Qty: 0 0RF clonazepam 0.5 mg Tablet 0.25 mg PO 0600 3 Days Qty: 2 0RF clonazepam 0.5 mg Tablet 0.5 mg PO QHS 3 Days Qty: 3 0RF sennosides-docusate sodium [Stimulant Laxative Plus] 8.6-50 mg Tablet 1 tab PO BID Qty: 0 0RF Eliquis 5 mg Tablet 5 mg PO BID Qty: 0 0RF tramadol 50 mg Tablet 50 mg PO Q6H PRN PRN (Reason: Pain Score 1-5) 3 Days Qty: 12 0RF Continued trazodone 50 mg tablet 50 mg PO QHS donepezil 10 mg tablet 10 mg PO DAILY levothyroxine 50 mcg tablet 50 mcg PO DAILY escitalopram oxalate 20 mg tablet 20 mg PO DAILY Patient Comments: PT TAKES AT BEDTIME. ascorbic acid (vitamin C) [C-500] 500 mg tablet 500 mg PO DAILY Discontinued clonazepam 0.5 mg tablet 0.5 mg PO TID PRN (Reason: anxiety) Patient Comments: PT TAKES 1/2 TAB IN MORNING AND 1 TAB AT BEDTIME. aspirin 81 mg capsule 81 mg PO BID 28 Days Qty: 56 0RF acetaminophen [Aphen] 325 mg tablet 650 mg PO Q6H PRN (Reason: pain) Qty: 30 1RF Referrals / Follow Up: Anaid Luna MD [Primary Care Provider] - Disposition Disposition (needs filled in before D/C Order can be placed): NonSkilled NH/Intermed Care
--- NOTE | 2025-03-16 20:21 | PCM.TXEXTCAR ---
Diet Diet Order/Speech Therapy: 03/04/25 15:22 Diet: Regular - General Routine Orders/Code Status Code Status: DNRCC-A (No intubation.) DC O2, CPAP, BIPAP needs Home O2 Discharge instructions: No Wound(s) Left hip: Wound Type: Surgical Incision Dressing Change: Dry Sterile Dressing Left lateral thigh: Wound Type: Surgical Incision Dressing Change: Dry Sterile Dressing Right celestin: Wound Type: Abrasion Therapies Weight Bearing: Weight bearing as tolerated Extremity Affected:: Bilateral Lower Physical Therapy: Eval and Treat Occupational Therapy: Eval and Treat Problem/Diagnosis (1) Debility: Status: Acute Code(s): R53.81 - Other malaise (2) Fall: Status: Inactive Code(s): W19.XXXA - Unspecified fall, initial encounter (3) Closed intertrochanteric fracture of left hip: Status: Inactive Code(s): S72.142A - Displaced intertrochanteric fracture of left femur, initial encounter for closed fracture (4) Acute pain of left knee: Status: Resolved Code(s): M25.562 - Pain in left knee (5) Dementia: Status: Acute Code(s): F03.90 - Unspecified dementia, unspecified severity, without behavioral disturbance, psychotic disturbance, mood disturbance, and anxiety (6) Anxiety: Status: Acute Code(s): F41.9 - Anxiety disorder, unspecified (7) Depression: Status: Acute Code(s): F32.A - Depression, unspecified (8) Hypothyroidism: Status: Acute Code(s): E03.9 - Hypothyroidism, unspecified (9) Insomnia: Status: Acute Code(s): G47.00 - Insomnia, unspecified (10) Urinary retention: Status: Acute Code(s): R33.9 - Retention of urine, unspecified Plan 84 year old female with below past medical history hospitalized for fall, left hip fracture, underwent left hip cephalomedullary nail fixation 03/02/[address] Overton, complicated by left knee pain, admitted to TCU with debility, here for rehabilitation, strengthening, prior to discharge home alone. Debility - PT/OT. Pain - Tylenol 1000mg q6 prn pain (1-10). Bowel - senna/colace 1 tablet bid, Magnesium citrate 300mL daily prn. Adult immunization - Administer pneumonia vaccine, covid vaccine, flu vaccine as appropriate. DVT prophylaxis - Aspirin 81mg bid thru 04/01/2025. Vitamin C deficiency - Vitamin C 500mg daily. Anxiety - Clonazepam 0.5mg tid prn, stable chronic ad terminal makeup operator use, GDR not recommended. Dementia NOS - Donepezil 10mg daily. Depression - Lexapro 20mg daily, stable chronic ad terminal makeup operator use, GDR not recommended. Hypothyroidism - Levothyroxine 50mcg daily. Insomnia - Trazodone 50mg qhs, stable chronic ad terminal makeup operator use, GDR not recommended. Allergies/Procedures Done in Hospital Allergies No Known Allergies Allergy (Verified 03/04/25 15:58) Procedures: None Type of Care/Length of Stay Estimated LOS: More Than 30 Days Type of Care Needed: Intermediate Rehab Potential: Fair Prognosis: Fair Additional Orders/Day of Discharge Day of Discharge: 03/19/25 Dietary and Speech Recommendations Dietitian Recommendations/Changes: Continue regular diet. Follow Up Care Please Follow Up With: Esther Lau Discharge Plan Admission Admit Date/Time: 03/04/25 15:04 Primary Reason for Your Visit: Debility. Attending Provider: Garfield Yo Chi Primary Care Provider: Anaid Luna Instructions Additional Instructions / Restrictions: Discharge to [facility], intermediate, part B therapies. Discharge Orders/Prescriptions Prescriptions: New acetaminophen 500 mg Tablet 1,000 mg PO Q8 Qty: 0 0RF clonazepam 0.5 mg Tablet 0.25 mg PO 0600 3 Days Qty: 2 0RF clonazepam 0.5 mg Tablet 0.5 mg PO QHS 3 Days Qty: 3 0RF sennosides-docusate sodium [Stimulant Laxative Plus] 8.6-50 mg Tablet 1 tab PO BID Qty: 0 0RF Eliquis 5 mg Tablet 5 mg PO BID Qty: 0 0RF tramadol 50 mg Tablet 50 mg PO Q6H PRN PRN (Reason: Pain Score 1-5) 3 Days Qty: 12 0RF Continued trazodone 50 mg tablet 50 mg PO QHS donepezil 10 mg tablet 10 mg PO DAILY levothyroxine 50 mcg tablet 50 mcg PO DAILY escitalopram oxalate 20 mg tablet 20 mg PO DAILY Patient Comments: PT TAKES AT BEDTIME. ascorbic acid (vitamin C) [C-500] 500 mg tablet 500 mg PO DAILY Discontinued clonazepam 0.5 mg tablet 0.5 mg PO TID PRN (Reason: anxiety) Patient Comments: PT TAKES 1/2 TAB IN MORNING AND 1 TAB AT BEDTIME. aspirin 81 mg capsule 81 mg PO BID 28 Days Qty: 56 0RF acetaminophen [Aphen] 325 mg tablet 650 mg PO Q6H PRN (Reason: pain) Qty: 30 1RF Referrals / Follow Up: Anaid Luna MD [Primary Care Provider] - Disposition Disposition (needs filled in before D/C Order can be placed): NonSkilled NH/Intermed Care
[2025-03-16] MEDS: clonazePAM 0.5 MG Tablet PO (20:39)
[2025-03-16] MEDS: traZODone 50 MG Tablet PO (20:40)
[2025-03-16 20:46] VITALS: RESP 16
[2025-03-17] MEDS: clonazePAM 0.5 MG Tablet 0.25 MG PO (06:13)
[2025-03-17] MEDS: Acetaminophen 500 MG Tablet 1000 MG PO ×3 (06:13→20:56)
[2025-03-17] MEDS: Levothyroxine 50 MCG Tablet PO (06:13)
[2025-03-17 07:35] VITALS: BP 148/64; PULSE 69; RESP 16; TEMP 36.6; O2SAT 100
[2025-03-17 07:36] VITALS: PULSE 69; RESP 16; O2SAT 100
--- NOTE | 2025-03-17 09:20 | CASEMGMT ---
Social Work JANNA received a call from JANNA Elmore at [facility], stated the dtr toured this morning is requesting a referral. JANNA provided hand off to Catarina and will send paperwork. [facility] to review for acceptance. - Clinicals sent via [facility]. Tierra Rowland FLOOR HELPER TOW BAR DRIVER
[2025-03-17 09:48] VITALS: BP 128/58; PULSE 67; RESP 17; TEMP 36.6; O2SAT 99
[2025-03-17] MEDS: Donepezil HCl 10 MG Tablet PO (09:53)
[2025-03-17] MEDS: Arthritis Pain Compound 60 CLICK TUBE TOPICAL ×2 (09:53→20:58)
[2025-03-17] MEDS: Menthol/Lanolin/Calamine/Znox 113 GM Tube 1 APPLIC TOPICAL ×2 (09:53→20:58)
[2025-03-17] MEDS: APIXABAN 5 MG TABLET PO ×2 (09:54→20:57)
[2025-03-17] MEDS: Escitalopram Oxalate 20 MG Tablet 30 MG PO (09:54)
[2025-03-17] MEDS: Ascorbic Acid 500 MG Tablet PO (09:54)
[2025-03-17 14:08] VITALS: BMI 25.4
[2025-03-17] MEDS: clonazePAM 0.5 MG Tablet PO (20:56)
[2025-03-17] MEDS: traZODone 50 MG Tablet PO (20:57)
[2025-03-18] MEDS: clonazePAM 0.5 MG Tablet 0.25 MG PO (05:47)
[2025-03-18] MEDS: Levothyroxine 50 MCG Tablet PO (05:47)
[2025-03-18] MEDS: Acetaminophen 500 MG Tablet 1000 MG PO ×3 (05:47→21:19)
[2025-03-18 09:01] VITALS: BP 115/41; PULSE 75; RESP 18; TEMP 36.6; O2SAT 97
[2025-03-18] MEDS: Escitalopram Oxalate 20 MG Tablet 30 MG PO (09:04)
[2025-03-18] MEDS: Donepezil HCl 10 MG Tablet PO (09:05)
[2025-03-18] MEDS: Senna/Docusate Sodium 1 Tablet PO (09:05)
[2025-03-18] MEDS: Menthol/Lanolin/Calamine/Znox 113 GM Tube 1 APPLIC TOPICAL ×2 (09:06→21:24)
[2025-03-18] MEDS: APIXABAN 5 MG TABLET PO ×2 (09:06→21:18)
[2025-03-18] MEDS: Arthritis Pain Compound 60 CLICK TUBE TOPICAL ×2 (09:06→21:16)
[2025-03-18] MEDS: Ascorbic Acid 500 MG Tablet PO (09:06)
--- NOTE | 2025-03-18 09:25 | CASEMGMT ---
Addendum entered by Tierra Rowland 03/18/25 14:05: PASRR completed Addendum entered by Tierra Rowland 03/18/25 14:05: W confirmed they can admit 03/19. SW requested pt be added to their psychology or psychiatry list. [facility] is able to transport pt between 10-1030 am at the main entrance. - JANNA phoned dtr to update and dtr appreciative. Plan: DC 03/[address] [facility], intermediate, private pay, part B therapies Original Note: Social Work [facility] can accept pt pending financial verification with dtr. [facility] notified this worker that dtr canceled tour yesterday and was unsure of placement. - SW phoned dtr to follow up on DC plans. Dtr sporadically speaking, discussing finances, the upcoming meeting with the patent prosecution attorney, wanting to make sure she uses pts money wisely, has called some caregivers to take pt home, just needs to buy some time for 2 weeks before the meeting with the patent prosecution attorney. SW provided active listening until dtr paused and became emotional, stating, Tierra, I just don't want to do. I want to do the right thing. SW provided emotional and verbal support. Validated the situation is overwhelming and this is a difficult decision. SW talked through dtr's feelings, concerns, hesitations, goals and best interest of dtr and pt. JANNA explained between [facility] and [facility], [facility] has all levels of care - LTC and memory care. JANNA explained this worker can objectively think about the future for the pt and that would be a benefit to the pt, if she needs it, to not have to move to another facility if [facility] could no longer meet her needs. Dtr agreed and appreciative of insight. Dtr hesitant to use pt's funds prior to discussing it with the elder law patent prosecution attorney to protect any assets from Medicaid. JANNA stated since dtr has the 30 days of payment accessible right now, that even when she meets with the patent prosecution attorney, that meeting is not going to provide all the answers to future estate planning. Further financial information will need to be obtained before assessing the protection of funds/assets. Regardless, JACQUELINE will require pt spend down some money and it is to pt's best benefit to spend it on her care. SW encouraged dtr to utilize that money to lessen dtrs stress, protect her mental health, ensure pt is in a safe environment where her needs are met, for at least those first 30 days. Dtr confirmed she can reassess and DC pt after those 30 days. JANNA confirmed. Dtr stated, you're right. That is what I need to do. It is what pt needs and it will give me peace of mind right now. JANNA agreed. JANNA explained this worker can speak with [facility] to ensure they have the bed available still, arrange transport and DC 03/19. Dtr expressed great appreciation for this worker's support and assistance. Dtr will await SW follow up to confirm DC plans. - JANNA phoned W to update and sent message via [employer]. JANNA phoned [facility] to inquire about transport availibility tomorrow, per dtr's request. [facility] to review schedule and return call to this worker. SW will await confirmations. PASRR started in . Tierra Rowland BUILDING RIGGER FINANCIAL COMPLIANCE OFFICER
--- NOTE | 2025-03-18 15:41 | CASEMGMT ---
Social Work SW completed BIMS () and PHQ-9 (04/14) for MDS assessment. Tierra Rowland COVER ASSEMBLER PAI GOW MANAGER
[2025-03-18] MEDS: traZODone 50 MG Tablet PO (21:17)
[2025-03-18] MEDS: clonazePAM 0.5 MG Tablet PO (21:18)
[2025-03-19 05:44] LABS: Absolute Lymphocyte Count 1.65 X10^3/uL (0.83-4.51); Absolute Neutrophil Count 5.7 X10^3/uL (2.0-7.7); Basophil# 0.05 X10^3/uL; Basophil% 0.6 % (0-1); Eosinophil# 0.18 X10^3/uL; Eosinophils% 2.1 % (0-5); Hematocrit 30.9 % (37-47); Hemoglobin 10.4 g/dL (12.0-15.0); Lymphocyte # 1.65 X10^3/ul (0.83-4.51); Lymphocyte % 19.7 % (19-41); Mean Corp Hgb Conc 33.7 g/dL (32-36); Mean Corpuscular Hgb 31.3 pg (27.0-32.0); Mean Corpuscular Volume 93.1 fL (81-99); Mean Platelet Vol. 9.1 fl (6.2-12.0); Monocyte# 0.71 X10^3/uL; Monocyte% 8.5 % (0-10); NRBC Flagged by Analyzer 0 % (0-5); Neutrophil # 5.66 X10^3/uL (2.7-7.7); Neutrophil % 67.5 % (47-70); Platelet Count 262 K/mm3 (150-450); RBC Distribution Width CV 15.7 % (11.6-14.6); RBC Distribution Width SD 53.2 fl (35.1-43.9); Red Blood Count 3.32 M/mm3 (4.2-5.4); White Blood Count 8.4 K/mm3 (4.4-11.0)
[2025-03-19] MEDS: clonazePAM 0.5 MG Tablet 0.25 MG PO (06:09)
[2025-03-19] MEDS: Acetaminophen 500 MG Tablet 1000 MG PO (06:11)
[2025-03-19] MEDS: Levothyroxine 50 MCG Tablet PO (06:11)
[2025-03-19 06:34] LABS: Anion Gap 7 (5-15); BUN 18 mg/dL (4-19); BUN/Creat Ratio 17.9 RATIO (10-20); Calcium,Total 8.8 mg/dL (7.6-11.0); Carbon Dioxide 26.6 mmol/L (21.0-32.0); Chloride 107 mmol/L (98-108); Creatinine, Serum 1.02 mg/dL (0.70-1.20); EST Glomerular Filtration Rate 54 (>60); Estimated Creatinine Clearance 32.95 ml/min (50-250); Glucose 92 mg/dL (70-99); Potassium 4.1 mmol/L (3.3-5.1); Sodium Level 141 mmol/L (133-145)
[2025-03-19 06:37] VITALS: PULSE 62; O2SAT 98
[2025-03-19 07:51] VITALS: BP 150/64; PULSE 68; RESP 16; TEMP 36.8; O2SAT 98
[2025-03-19] MEDS: Donepezil HCl 10 MG Tablet PO (07:53)
[2025-03-19] MEDS: Arthritis Pain Compound 60 CLICK TUBE TOPICAL (07:54)
[2025-03-19] MEDS: Menthol/Lanolin/Calamine/Znox 113 GM Tube 1 APPLIC TOPICAL (07:54)
[2025-03-19] MEDS: APIXABAN 5 MG TABLET PO (07:54)
[2025-03-19] MEDS: Escitalopram Oxalate 20 MG Tablet 30 MG PO (07:54)
[2025-03-19] MEDS: Senna/Docusate Sodium 1 Tablet PO (07:57)
[2025-03-19] MEDS: Ascorbic Acid 500 MG Tablet PO (07:57)
--- NOTE | 2025-03-19 09:44 | NURSING ---
Addendum entered by Mark Levin 03/19/25 12:05: Call back from Shanda aggarwal at [facility]. Report given. Call back number provided with any questions/concerns. Original Note: Attempted to call report to [facility] x4. VM left with call back number.
--- NOTE | 2025-03-19 10:13 | NURSING ---
Discussed removing campos catheter with patient. Patient self caths at baseline TID at home. Patient is not back to baseline at this time and unable to self cath. Patient is requesting to keep campos catheter in place at this time. Daughter present and agrees. Campos left in place per patient request. Campos catheter is patent and draining without difficulties.
== END 2025-03-19 10:30 | disposition intermediate care facility (04) | DRG 560 ==
PROVIDERS: Admitting Provider Family Medicine Geriatric Medicine; PCP Internal Medicine; Visit Provider Family Medicine Geriatric Medicine
DX: S72.142D Displaced intertrochanteric fracture of left femur, subsequent encounter for closed fracture with routine healing (principal); I82.402 Acute embolism and thrombosis of unspecified deep veins of left lower extremity; F03.90 Unspecified dementia, unspecified severity, without behavioral disturbance, psychotic disturbance, mood disturbance, and anxiety; E03.9 Hypothyroidism, unspecified; F32.A Depression, unspecified; I10 Essential (primary) hypertension; F41.9 Anxiety disorder, unspecified; W06.XXXD Fall from bed, subsequent encounter; Z79.82 Long term (current) use of aspirin; Z79.890 Hormone replacement therapy; G47.00 Insomnia, unspecified; R33.9 Retention of urine, unspecified; Z79.899 Other long term (current) drug therapy
CPT/HCPCS: 36415; 71046; 73560; 80048; 85014; 85018; 85025; 92507; 92523; 97110; 97116; 97129; 97130; 97162; 97166; 97530; 97535; 97802

== ENCOUNTER → 2025-03-09 | Outpatient (CLI) | payer MEDICARE, SELFPAY ==
--- NOTE | 2025-03-09 08:43 | VDLE_ITS ---
Reason For Study Reason For Study: LLE PAin RIGHT LEFT CFV is compressible, spontaneous, phasic, competent GSV is normal. and demonstrates normal augmentation. CFV is compressible, spontaneous, phasic, competent, Procedure and demonstrates normal augmentation. This is a venous duplex using B-mode, color flow and FV is compressible, spontaneous, phasic, competent and spectral Doppler. demonstrates normal augmentation. Exam performed in department. POP V is compressible, spontaneous, phasic, competent The exam was diagnostic. and demonstrates normal augmentation. A preliminary report was called and/or faxed to TCU T/P Trunk is compressible. senior web analyst. PTV is compressible. Acute deep vein thrombosis is noted in the Per V. It is dilated and NONCOMPRESSIBLE. VL/Venous Duplex US, Unilateral Interpretation Summary Acute deep vein thrombosis is noted in the left peroneal vein. Ordering Physician: Garfield Yo Chi Referring Physician: Anaid Luna Performed By: Raul Katz RVT
== END | disposition home or self-care (01) ==
LOC: CVS 08:43
PROVIDERS: PCP Internal Medicine; Referring Provider Family Medicine Geriatric Medicine; Visit Provider Family Medicine Geriatric Medicine
DX: M79.662 Pain in left lower leg (principal)
CPT/HCPCS: 93971

== ENCOUNTER → 2025-03-23 | Outpatient (REF) | payer MEDICARE, SELFPAY ==
[2025-03-23 08:41] LABS: Absolute Lymphocyte Count 1.22 X10^3/uL (0.83-4.51); Absolute Neutrophil Count 6.8 X10^3/uL (2.0-7.7); Basophil# 0.04 X10^3/uL; Basophil% 0.4 % (0-1); Eosinophil# 0.17 X10^3/uL; Eosinophils% 1.9 % (0-5); Hematocrit 34.2 % (37-47); Hemoglobin 11.6 g/dL (12.0-15.0); Lymphocyte # 1.22 X10^3/ul (0.83-4.51); Lymphocyte % 13.5 % (19-41); Mean Corp Hgb Conc 33.9 g/dL (32-36); Mean Corpuscular Hgb 31.2 pg (27.0-32.0); Mean Corpuscular Volume 91.9 fL (81-99); Mean Platelet Vol. 10.1 fl (6.2-12.0); Monocyte# 0.71 X10^3/uL; Monocyte% 7.8 % (0-10); NRBC Flagged by Analyzer 0 % (0-5); Neutrophil # 6.82 X10^3/uL (2.7-7.7); Neutrophil % 75.3 % (47-70); Platelet Count 241 K/mm3 (150-450); RBC Distribution Width SD 50.8 fl (35.1-43.9); Red Blood Count 3.72 M/mm3 (4.2-5.4); White Blood Count 9.1 K/mm3 (4.4-11.0)
[2025-03-23 09:07] LABS: ALB/GLOB Ratio 1.5 RATIO (0.9-2.4); AST(SGOT) 16 U/L (<=31); Alanine Aminotransfer ALT/SGPT 6 U/L (<=34); Albumin, Serum 3.5 g/dL (3.4-4.8); Alkaline Phosphatase 135 U/L (35-104); Anion Gap 10 (5-15); BUN 17 mg/dL (4-19); BUN/Creat Ratio 21.5 RATIO (10-20); Carbon Dioxide 24.4 mmol/L (21.0-32.0); Chloride 104 mmol/L (98-108); Creatinine, Serum 0.78 mg/dL (0.70-1.20); EST Glomerular Filtration Rate 75 (>60); Globulin 2.3 g/dL (2.2-4.2); Glucose 95 mg/dL (70-99); Potassium 3.5 mmol/L (3.3-5.1); Protein, Total 5.8 g/dL (5.9-8.4); Sodium Level 139 mmol/L (133-145); Total Bilirubin 1.28 mg/dL (0.00-1.30)
== END ==
LOC: OLS.WHLEAS 05:00
PROVIDERS: PCP Internal Medicine; Visit Provider Internal Medicine
DX: I10 Essential (primary) hypertension (principal)
CPT/HCPCS: 36415; 80053; 85025

== ENCOUNTER → 2025-03-30 | Outpatient (REF) | payer MEDICARE, SELFPAY ==
[2025-03-30 10:10] LABS: Absolute Lymphocyte Count 1.33 X10^3/uL (0.83-4.51); Absolute Neutrophil Count 6.3 X10^3/uL (2.0-7.7); Basophil# 0.06 X10^3/uL; Basophil% 0.7 % (0-1); Eosinophil# 0.12 X10^3/uL; Eosinophils% 1.4 % (0-5); Hematocrit 34.1 % (37-47); Hemoglobin 11.3 g/dL (12.0-15.0); Lymphocyte # 1.33 X10^3/ul (0.83-4.51); Lymphocyte % 15.4 % (19-41); Mean Corp Hgb Conc 33.1 g/dL (32-36); Mean Corpuscular Volume 93.7 fL (81-99); Mean Platelet Vol. 10.8 fl (6.2-12.0); Monocyte# 0.71 X10^3/uL; Monocyte% 8.2 % (0-10); NRBC Flagged by Analyzer 0 % (0-5); Neutrophil # 6.31 X10^3/uL (2.7-7.7); Neutrophil % 73.4 % (47-70); Platelet Count 160 K/mm3 (150-450); RBC Distribution Width CV 14.2 % (11.6-14.6); Red Blood Count 3.64 M/mm3 (4.2-5.4); White Blood Count 8.6 K/mm3 (4.4-11.0)
[2025-03-30 10:24] LABS: Anion Gap 9 (5-15); BUN 12 mg/dL (4-19); BUN/Creat Ratio 14.8 RATIO (10-20); Chloride 105 mmol/L (98-108); Creatinine, Serum 0.83 mg/dL (0.70-1.20); EST Glomerular Filtration Rate 70 (>60); Glucose 91 mg/dL (70-99); Potassium 3.6 mmol/L (3.3-5.1); Sodium Level 141 mmol/L (133-145)
== END ==
LOC: OLS.WHLEAS 05:00
PROVIDERS: PCP Internal Medicine; Visit Provider Nurse Practitioner Adult Health
DX: I10 Essential (primary) hypertension (principal); S72.142D Displaced intertrochanteric fracture of left femur, subsequent encounter for closed fracture with routine healing; M25.562 Pain in left knee
CPT/HCPCS: 36415; 80048; 85025

== ENCOUNTER → 2025-04-06 04:00 | Outpatient (REF) | payer MEDICARE, SELFPAY ==
[2025-04-06 07:47] LABS: Absolute Lymphocyte Count 1.67 X10^3/uL (0.83-4.51); Absolute Neutrophil Count 6.8 X10^3/uL (2.0-7.7); Anion Gap 10 (5-15); BUN 15 mg/dL (4-19); BUN/Creat Ratio 18.7 RATIO (10-20); Basophil# 0.04 X10^3/uL; Basophil% 0.4 % (0-1); Calcium,Total 8.9 mg/dL (7.6-11.0); Carbon Dioxide 25.7 mmol/L (21.0-32.0); Chloride 106 mmol/L (98-108); Creatinine, Serum 0.79 mg/dL (0.70-1.20); EST Glomerular Filtration Rate 74 (>60); Eosinophil# 0.11 X10^3/uL; Eosinophils% 1.2 % (0-5); Glucose 90 mg/dL (70-99); Hematocrit 33.6 % (37-47); Hemoglobin 11.4 g/dL (12.0-15.0); Lymphocyte # 1.67 X10^3/ul (0.83-4.51); Lymphocyte % 17.8 % (19-41); Mean Corp Hgb Conc 33.9 g/dL (32-36); Mean Corpuscular Hgb 31.1 pg (27.0-32.0); Mean Corpuscular Volume 91.8 fL (81-99); Mean Platelet Vol. 10.9 fl (6.2-12.0); Monocyte# 0.69 X10^3/uL; Monocyte% 7.3 % (0-10); NRBC Flagged by Analyzer 0 % (0-5); Neutrophil % 72.3 % (47-70); Platelet Count 160 K/mm3 (150-450); Potassium 3.6 mmol/L (3.3-5.1); RBC Distribution Width CV 13.7 % (11.6-14.6); RBC Distribution Width SD 46.9 fl (35.1-43.9); Red Blood Count 3.66 M/mm3 (4.2-5.4); Sodium Level 142 mmol/L (133-145); White Blood Count 9.4 K/mm3 (4.4-11.0)
== END ==
LOC: OLS.WHLEAS 04:00
PROVIDERS: PCP Internal Medicine; Referring Provider Internal Medicine; Visit Provider Internal Medicine
DX: I10 Essential (primary) hypertension (principal)
CPT/HCPCS: 36415; 80048; 85025

== ENCOUNTER 2025-05-17 09:31 | Emergency (ER) | payer MEDICARE, SELFPAY ==
[2025-05-17 09:32] VITALS: BP 153/61; PULSE 71; RESP 16; TEMP 36.1; O2SAT 100
--- NOTE | 2025-05-17 09:59 | EDS_ITS ---
HPI History of Present Illness Chief Complaint: Confusion Informant: patient and family (Daughter) Onset/Context/Timing Onset: Days Context: Gradual Onset Timing: Continuous Current Severity: Mild Maximum Severity: Mild Narrative Narrative: 84-year-old female history of prior left hip fracture in February. Dementia. Se lf-catheterization and hypertension. She lives in an apartment. Daughter as healthy is here to help her occupational and physical therapy and some long-term. They also have cameras in and keep an eye on her and daughter lives very close to her. Daughter states the last couple days she has had some mild change in her mental status she is concerned she has a recurrent UTI they have had similar symptoms like this in the past when she gets urinary tract infections. Denies fever. Denies vomiting or diarrhea. No recent fall or head trauma. Patient denies any complaints. Patient has had urinary tract infections this year and has been on antibiotics. Typically was treated as an outpatient. Prior similar symptoms: Yes Recent Illness/Hospitalization: Yes [facility] Medical History Closed intertrochanteric fracture of left hip Fall Hypothyroidism Anxiety Dementia Self-catheterizes urinary bladder Hypertension Back pain Home Medications ?Medication ?Instructions ?Recorded ?Last Taken ?Type ascorbic acid (vitamin C) 500 mg 500 mg PO DAILY suppl ement 03/01/25 03/04/25 History tablet (C-500) donepezil 10 mg tablet 10 mg PO DAILY dementia 02/1703/04/25 History escitalopram oxalate 20 mg tablet 20 mg PO DAILY anxie ty 03/01/25 03/03/25 History levothyroxine 50 mcg tablet 50 mcg PO DAILY thyroid 03/04/25 History trazodone 50 mg tablet 50 mg PO QHS anxiety 5 03/03/25 History acetaminophen 500 mg tablet 1,000 mg (2 x 500 mg) PO Q 8 #0 tabs 03/16/25 Unknown Rx apixaban 5 mg tablet (Eliquis) 5 mg PO BID #0 tabs Unknown Rx sennosides 8.6 mg-docusate sodium 1 tab PO BID #0 tabs 03/16/25 Unknown Rx 50 mg tablet (Stimulant Laxative Plus) tramadol 50 mg tablet 50 mg PO Q6H PRN PRN Pain Sc ore 03/16/25 Unknown Rx 1-5 3 days #12 tabs cephalexin 500 mg capsule 500 mg PO Q6 7 days #28 CAPS ULES 05/17/25 Unknown Rx Allergy/AdvReac Type Severity Reaction Status Date / Time No Known Allergies Allergy Verified 05/17/25 09:33 Family History Other Hypertension Surgical History H/O: hysterectomy Status post right knee replacement Social History household members: none housing: apartment current occupational status: retired other: Daughter lives a few doors down helps her on a regular basis Smoking Status: Never smoker alcohol intake: never substance use type: does not use ROS ROS ED ROS Narrative No recent illness. No vomiting or diarrhea. No fever. No dysuria. Constitutional Constitutional ED: Denies chills or fever(s) Eyes Eyes: Denies blurry vision ENT ENT ED: Denies ear pain Cardiovascular Cardiovascular: Denies chest pain Respiratory/Chest Respiratory/Chest: Denies cough or dyspnea Gastrointestinal Gastrointestinal: Reports other; Denies abdominal pain, constipation, diarrhea, melena, nausea or vomiting Genitourinary Genitourinary ED: Denies dysuria or hematuria Musculoskeletal Musculoskeletal: Denies arthralgias Integumentary Denies abscess Neurologic Neurologic: Denies headache(s) Psychiatric Psychiatric: Reports depression Endocrine Endocrinology: Denies cold intolerance Hematologic/Lymphatic Hematologic/Lymphatic: Reports none Allergic/Immunologic Allergic/Immunologic ED: Denies mouth swelling, tongue swelling or urticaria EXAM Physical Exam Narrative Exam Narrative: 84-year-old female sitting upright in bed. No acute distress. Daughter at bedside. Vital signs are stable afebrile. Pulse ox 100% on room air no hypoxia. H EENT exam pupils are reactive light. Moist membranes. No trauma. Neck no tender. No lymphadenopathy. Lungs clear to auscultation bilaterally. Heart regular rhythm rate about 70 no murmur. Chest wall ribs nontender. Abdomen soft nontender. Moving all 4 extremities. Calves are nontender without edema or cords. Back nontender. Neurologically she is awake. She is alert. She is answering questions. Following commands. She does have some dementia. Const Vital Signs: 05/17/25 09:32 Temperature 96.9 F L Temperature Source Temporal Pulse Rate 71 Respiratory Rate 16 Blood Pressure 153/61 H Blood Pressure Mean 91 Pulse Ox 100 Oxygen Delivery Method Room Air Positive well nourished and well developed; Negative for obese, cachectic, contractures or unkempt General Appearance ED: well developed and NAD; Negative for unkempt, cachectic, contractures, cyanotic, diaphoretic or pallor Nutritional Appearance: Negative for cachectic or obese HEENT Reports moist mucous membranes Negative for trauma or tenderness Eyes PERRL and EOMs intact bilaterally Neck no lymphadenopathy, supple and no JVD Chest Wall inspection of chest normal and palpation of chest normal Resp normal respiratory effort and clear to auscultation bilaterally Effort and Inspection: Negative for retractions Auscultation: Negative for rales, rhonchi, wheezes or diminished lung sounds Cardio regular rate, regular rhythm, S1 normal heart sound, S2 normal heart sound and no murmurs Rate: Negative for bradycardia or tachycardic GI normal to inspection, nondistended, normoactive bowel sounds, non-tender, non- distended and no masses Auscultation: normoactive bowel sounds Palpation: soft; Negative for tender, guarding or rebound tenderness present Back/Spine no CVA tenderness General Back: Negative for CVA tenderness Cervical Spine: Negative for cervical spine tenderness Thoracic Spine / Upper Back: Negative for thoracic spinal tenderness or paraspinal muscle tenderness Lumbar Spine / Lower Back: Negative for lumbar spinal tenderness Extremity normal to inspection General Extremety ED: Negative for edema or tenderness General Extremity: Negative for edema Neuro oriented x3 and CN's II-XII intact bilaterally Sensorium / Orientation: alert; Negative for orientation impaired Motor Exam: strength 5/5 throughout Psych mental status grossly normal Appearance: Negative for unkempt Attitude: No agitated Mood & Affect: depressed; Negative for anxious or tearful Skin no rashes or lesions noted and no wounds General Skin Exam: Negative for jaundice or pallor Rashes: No rashes noted Trauma: Negative for abrasion Wounds: Negative for wounds noted MDM MDM MDM Narrative Medical decision making narrative: [id number] female with dementia lives at home with a lot of assistance and assistance from her daughter who is at bedside. May or may not have a UTI. Straight cath for UA and screening labs. Otherwise her exam is benign. Repeat exam patient is doing well At 11:25 AM. No change in exam. Discussed test results with daughter. She be placed on Keflex per daughter request because she has done well with it in the past. 4 times a day for a week. First dose given here. Prescription sent to her pharmacy. Culture was sent. History & Record Review Discussion w/independent historian: Patient and Family Additional record(s) reviewed:: Prior inpatient record, Prior outpatient record, Prior ED visit and Prior labs Lab Data Attestation: I reviewed the patient's lab results. Lab results narrative: CBC shows white count 8. H&H 12 and 36. Platelets 181. Urinalysis shows positive nitrites. 50-100 white cells. No squamous cells no bacteria. Culture will be sent. Chemistry shows sodium 142. Gap 12. Normal BUN and creatinine. Glucose 97. Labs: Laboratory Results - last 24 hr 05/17/25 10:06 WBC 8.8 RBC 4.17 L Hgb 12.5 Hct 36.5 L MCV 87.5 MCH 30.0 MCHC 34.2 RDW Std Deviation 41.9 RDW Coeff of Leslie 13.1 Plt Count 181 MPV 10.4 Immature Gran % (Auto) 0.500 Neut % (Auto) 78.8 H Lymph % (Auto) 14.1 L [place] % (Auto) 5.1 Eos % (Auto) 0.9 Baso % (Auto) 0.6 Absolute Neuts (auto) 6.9 Absolute Lymphs (auto) 1.24 Nucleated RBC % 0 Sodium 142 Potassium 3.9 Chloride 104 Carbon Dioxide 26.5 Anion Gap 12 BUN 15 Creatinine 0.96 Est GFR (MDRD) Non-Af 58 L BUN/Creatinine Ratio 15.6 Glucose 97 Calcium 9.0 Urine Color Yellow Urine Clarity Clear Urine pH 6.0 Ur Specific [place] 1.020 Urine Protein 30 H Urine Glucose (UA) Normal Urine Ketones Negative Urine Occult Blood 10 H Urine Nitrite Positive H Urine Bilirubin Negative Urine Urobilinogen Normal Ur Leukocyte Esterase 100 H Urine RBC 0-5 SEEN Urine WBC 50-100 SEEN Ur Squamous Epith Cells 0-5 SEEN Urine Bacteria 0 SEEN Urine Mucus 0 SEEN Discharge Plan Triage Chief Complaint: Confusion ED Provider: Domingo Darby Dx/Rx/DC Orders Clinical Impression: Acute UTI, History of dementia, History of hypertension Instructions: UTIs Prescriptions: New cephalexin 500 mg capsule 500 mg PO Q6 7 Days Qty: 28 0RF No Action acetaminophen 500 mg Tablet 1,000 mg PO Q8 Qty: 0 0RF sennosides-docusate sodium [Stimulant Laxative Plus] 8.6-50 mg Tablet 1 tab PO BID Qty: 0 0RF Eliquis 5 mg Tablet 5 mg PO BID Qty: 0 0RF tramadol 50 mg Tablet 50 mg PO Q6H PRN PRN (Reason: Pain Score 1-5) 3 Days Qty: 12 0RF trazodone 50 mg tablet 50 mg PO QHS donepezil 10 mg tablet 10 mg PO DAILY levothyroxine 50 mcg tablet 50 mcg PO DAILY escitalopram oxalate 20 mg tablet 20 mg PO DAILY Patient Comments: PT TAKES AT BEDTIME. ascorbic acid (vitamin C) [C-500] 500 mg tablet 500 mg PO DAILY Primary Care Provider: Anaid Luna Referrals: Anaid Luna MD [Primary Care Provider] - As Needed Activity Restrictions/Additional Instructions: Plenty of fluids and cranberry juice. It appears that she has a UTI. Urine culture was sent. She will be started on antibiotic Keflex 1 pill 4 times a day for 1 week. Follow-up with your doctor if not improving or return if worse. Print Language: Citizen Of [place] Disposition Disposition: Home, Self Care
[2025-05-17 10:09] LABS: Bacteria 0 SEEN /hpf (None Seen); Mucous, Urine 0 SEEN /hpf (<or=2+)
--- OUTSIDE RECORDS SUMMARY | 2025-05-17 10:11 | XMS RPT_ITS | CCD ---
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 Vadim Florence DO Attending Provider Dr. Vadim Florence DO Emergency Provider Dr. Dillan Santiago MD Primary Care Provider Dr. Guerrero Valerio DO Emergency Provider Dr. Roro Long DO Admit Provider Dr. Roro Long DO Attending Provider Dr. Roro Lnog DO Other Provider Dr. [place] Rosas DO Other Provider Chelsea DELACRUZ, Dr. Allison Nicholson Attending Provider Chelsea DELACRUZ, Dr. Allison Nicholson Other Provider Srinath DELACRUZ, Dr. Garfield Hernandez Admit Provider Srinath DELACRUZ, Dr. Garfield Hernandez Attending Provider Srinath DELACRUZ, Dr. Garfield Hernandez Referring Provider Sean DELACRUZ, Dr. Fierro Attending Provider [phone] Adele Gusman MD Attending Provider Unavaila moraima Morgan CONTINUITY EDITOR-CDaya Attending Provider [phone] Adele Gusman MD Referring Provider Unavaila ble Ganta, Dillan Primary Care Unavailable Vadim Estrada Attending Unavailable Srinath, Garfield Chi Referring Unavailable Ganta, Dillan Primary Care Unavailable Vadim Florence Attending Unavailable Ganta, Dillan Primary Care Unavailable Naseem MEEHAN, Onibe Referring Unavailabl e Naseem MEEHAN, Onibe Attending Unavailabl e Ganta, Dillan Primary Care Unavailable Daya Head Attending Unavailable Ganta, Dillan Primary Care Unavailable Koram, Allison Lyn Attending Unavailable Ethan, Roro Admitting Unavailable Spittle, Bsoton Consulting Unavailable Ethan, Roro Consulting Unavailable Srinath, Garfield Chi Admitting Unavailable Ganta, Dillan Primary Care Unavailable Srinath, Garfield Chi Attending Unavailable Ganta, Dillan Primary Care Unavailable Oleghe SHEFALI, Efewongbe Attending Unavailabl e Ganta, Dillan Primary Care Unavailable Koram, Allison Lyn Attending Unavailable Spittle, [place] Consulting Unavailable Ethan, Roro Admitting Unavailable Ethan, Roro Consulting Unavailable Koram, Allison Lyn Consulting Unavailable Ethan, Roro Attending Unavailable Ganta, Dillan Primary Care Unavailable Srinath, Garfield Chi Referring Unavailable Srinath, Garfield Chi Attending Unavailable GANTA, DILLAN Primary Care Unavailable GANTA, DILLAN Referring Unavailable GANTA, DILLAN Referring Unavailable GANTA, DILLAN Primary Care Unavailable GANTA, DILLAN Attending Unavailable GANTA, DILLAN Primary Care Unavailable GANTA, DILLAN Attending Unavailable GANTA, DILLAN Primary Care Unavailable GANTA, DILLAN Attending Unavailable GANTA, DILLAN Primary Care Unavailable SELF Referring Unavailable TOM BALTAZAR Attending Unavailable GANTA, DILLAN Primary Care Unavailable OLDER, MARIPOSA Referring Unavailable GANTA, DILLAN Attending Unavailable GANTA, DILLAN Primary Care Unavailable OLDER, MARIPOSA Referring Unavailable GANTA, DILLAN Primary Care Unavailable OLDER, MARIPOSA Referring Unavailable OLDER, MARIPOSA Attending Unavailable GANTA, DILLAN Primary Care Unavailable GANTA, DILLAN Primary Care Unavailable GANTA, DILLAN Primary Care Unavailable OLDER, MARIPOSA Attending Unavailable Medications Current Medications Medication Drug Class(es) Dates Sig (Normalized) Sig (Original) acetaminophen 500 mg oral tablet (4 sources) Start: 03-16-2025 take 2 tablets by mouth every eight hours Acetaminophen 500 mg Tablet Active 1000 mg PO EVERY 8 HOURS 0 March 16, 2025 12:00am Start: 03-04-2025 End: 03-16-2025 Acetaminophen (Aphen) 325 mg tablet Discontinued 650 mg PO EVERY 6 HOURS as needed for pain March 04, 2025 12:00am March 16, 2025 8:16pm amLODIPine (1 source) Dihydropyridine Calcium Channel Deshawn Start: 10-29-2019 amLODIPine Active October 29, 2019 12:00am apixaban 5 mg oral tablet (6 sources) Factor Xa Inhibitor Start: 03-16-2025 End: 08-04-2025 take 1 tablet by mouth twice daily apixaban (ELIQUIS) 5 mg tab(s) Indications: Acute heart failure, unspecified heart failure type (HCC) Take 1 tablet by mouth two times a day. 60 tablet 2 05/06/2025 08/04/2025 Active ascorbic acid 500 mg oral tablet (20 sources) Vitamin C Start: 03-01-2025 take 1 tablet by mouth once daily Ascorbic Acid (Vitamin C) (C-500) 500 mg tablet Active 500 mg PO DAILY March 01, 2025 12:00am Start: 10-29-2019 Vitamin C Acti ve October 29, 2019 12:00am ascorbic acid (V ITAMIN C ORAL) Take by mouth once daily. Active busPIRone hydrochloride 5 mg oral tablet (3 sources) Start: 05-06-2025 take 1 tablet by mouth twice daily busPIRone (BUSPAR) 5 mg tablet Take 1 tablet by mouth two times a day. 60 tablet 3 05/06/2025 Active Catheter (SELF-CATHETER, FEMALE) 14 Fr misc (20 sources) Catheter (SELF-CATHETER, FEMALE) 14 Fr misc Self catheterizes four times daily Active cephalexin 500 mg oral capsule (8 sources) Cephalosporin Antibacterial Start: 02-19-2025 End: 02-26-2025 take 1 capsule by mouth four times daily cephALEXin (KEFLEX) 500 mg capsule Indications: Recurrent UTI (urinary tract infection) Take 1 capsule by mouth four times daily for 7 days. 28 capsule 02/19/2025 02/26/2025 Active Start: 01-17-2025 End: 03-01-2025 take 1 capsule by mouth three times daily Cephalexin 500 mg capsule Discontinued 500 mg PO THREE TIMES A DAY 21 7 January 17, 2025 1:00am March 01, 2025 12:29pm citalopram 20 mg oral tablet (14 sources) Serotonin Reuptake Inhibitor Start: 04-20-2025 take 1 tablet by mouth once daily citalopram (CELEXA) 20 mg tablet Take 1 tablet by mouth once daily. 30 tablet 2 04/20/2025 Active Start: 10-29-2019 Citalopram Act mroro October 29, 2019 12:00am clonazePAM 0.5 mg oral tablet (20 sources) Benzodiazepine Start: 03-16-2025 End: 04-20-2025 Clonazepam 0.5 mg tablet Active 0.25 mg PO 0600 7 14 April 20, 2025 6:14am May 03, 2025 12:00am Start: 01-31-2025 End: 05-31-2025 take 1 tablet by mouth three times daily as needed for anxiety clonazePAM (KLONOPIN) 0.5 mg tablet Indications: Anxiety and depression Take 1 tablet by mouth three times a day as needed for anxiety for up to 30 days. 45 tablet 05/01/2025 05/31/2025 Active Start: 01-31-2025 End: 01-26-2025 take 1 tablet by mouth three times daily as needed for anxiety clonazePAM (KLONOPIN) 0.5 mg tablet Indications: Anxiety and depression Take 1 tablet by mouth three times a day as needed for anxiety for up to 30 days. Patient should start on January 31, 2025. 45 tablet 01/31/2025 01/26/2025 Discontinued Start: 12-15-2024 End: 03-02-2025 take 1 tablet by mouth three times daily as needed for anxiety clonazePAM (KLONOPIN) 0.5 mg tablet Indications: Anxiety and depression Take 1 tablet by mouth three times a day as needed for anxiety for up to 30 days. 45 tablet 01/26/2025 02/24/2025 Discontinued Start: 11-05-2024 End: 12-12-2024 take 1 tablet by mouth three times daily as needed for anxiety clonazePAM (KLONOPIN) 0.5 mg tablet Indications: Anxiety and depression Take 1 tablet by mouth three times a day as needed for anxiety for up to 30 days. 45 tablet 11/05/2024 12/12/2024 Discontinued docusate sodium 50 mg / sennosides, [facility] 8.6 mg oral tablet (1 source) Start: 03-16-2025 Sennosides-Doc usate Sodium (Stimulant Laxative Plus) 8.6-50 mg Tablet Active 1 {tbl} PO TWICE A DAY 0 March 16, 2025 12:00am donepezil hydrochloride 10 mg oral tablet (20 sources) Start: 02-04-2025 End: 02-04-2025 take 1 tablet by mouth once daily after breakfast donepezil (ARICEPT) 10 mg tablet Take 1 tablet by mouth daily after breakfast. 90 tablet 3 02/04/2025 Active Start: 01-02-2025 End: 02-04-2025 take 1 tablet by mouth once daily at bedtime donepezil (ARICEPT) 5 mg tablet Take 1 tablet by mouth daily at bedtime. 30 tablet 11 01/02/2025 02/04/2025 Discontinued escitalopram 20 mg oral tablet (20 sources) Serotonin Reuptake Inhibitor Start: 11-05-2024 End: 04-20-2025 take 1 tablet by mouth once daily Escitalopram Oxalate 20 mg tablet Active 20 mg PO DAILY March 01, 2025 12:00am furosemide 20 mg oral tablet (4 sources) Loop Diuretic Start: 05-06-2025 furosemide (LA SIX) 20 mg tablet Indications: Acute heart failure, unspecified heart failure type (HCC) Please give her Sunday and in the morning. Or if her weight increases by 3 pounds on any given day, give one pill on that day 30 tablet 3 05/06/2025 Active levothyroxine sodium 0.05 mg oral tablet (20 sources) l-Thyroxine Start: 11-06-2024 take 1 tablet by mouth once daily levothyroxine (EUTHYROX) 50 mcg tablet Indications: Hypothyroidism, unspecified type Take 1 tablet by mouth once daily. 90 tablet 3 11/06/2024 Active Start: 11-05-2024 End: 11-06-2024 take 1 capsule by mouth once daily before breakfast levothyroxine 50 mcg cap Indications: Hypothyroidism, unspecified type Take 1 capsule by mouth daily before breakfast. 90 capsule 3 11/05/2024 11/06/2024 Discontinued Start: 10-29-2019 Synthroid Acti ve October 29, 2019 12:00am sodium chloride 0.154 meq/ml irrigation solution (4 sources) Start: 05-06-2025 sodium chlorid e 0.9 % IRRIGATION Indications: Urine retention Irrigate 60 mL as instructed once daily as needed. 2000 mL 3 05/06/2025 Active traMADol hydrochloride 50 mg oral tablet (1 source) Opioid Agonist Start: 03-16-2025 take 1 tablet by mouth every six hours as needed for pain Tramadol 50 mg Tablet Active 50 mg PO EVERY 6 HOURS NEEDED as needed for Pain Score 1-5 12 3 March 16, 2025 12:00am traZODone hydrochloride 50 mg oral tablet (20 sources) Serotonin Reuptake Inhibitor Start: 11-05-2024 End: 04-20-2025 take 1 tablet by mouth at bedtime Trazodone 50 mg tablet Active 50 mg PO AT BEDTIME March 01, 2025 12:00am Start: 10-29-2019 Trazodone Acti ve October 29, 2019 12:00am Vitamin D (1 source) Start: 10-29-2019 Vitamin D Acti ve October 29, 2019 12:00am Completed/Discontinued Medications Medication Drug Class(es) Dates Sig (Normalized) Sig (Original) ALPRAZolam (1 source) Benzodiazepine Start: 10-29-2019 End: 01-17-2024 Xanax Discontinued Every Day At Bedtime October 29, 2019 12:00am January 17, 2024 1:21pm aspirin 81 mg oral tablet (3 sources) Platelet Aggregation Inhibitor, Nonsteroidal Anti-inflammatory Drug Start: 03-04-2025 End: 03-16-2025 take 1 capsule by mouth twice daily Aspirin 81 mg capsule Discontinued 81 mg PO TWICE A DAY 56 March 04, 2025 12:00am March 16, 2025 8:17pm [place] (1 source) Start: 10-29-2019 End: 01-17-2024 [place] Discontinued October 29, 2019 12:00am January 17, 2024 1:21pm One Daily Complete Tablet (1 source) Start: 10-29-2019 End: 01-17-2024 One Daily Complete Tablet Discontinued October 29, 2019 12:00am January 17, 2024 1:21pm Problems Active Problems Problem Classification Problem Date Documented Da te Episodic/Chronic Anxiety disorders (19 sources) Mixed anxiety and depressive disorder; Translations: [Anxiety disorder, unspecified] Onset: 5 11-05-2024 Chronic Chronic ulcer of skin (20 sources) Pressure ulcer of sacral region, unstageable; Translations: [Pressure ulcer, lower back] Onset: 5 04-17-2025 Chronic Congestive heart failure; nonhypertensive (3 sources) Acute heart failure; Translations: [Heart failure, unspecified] Onset: 5 05-06-2025 Chronic Delirium, dementia, and amnestic and other cognitive disorders (20 sources) Presenile dementia; 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] Onset: 5 02-04-2025 Chronic Diabetes mellitus without complication (2 sources) Prediabetes; Translations: [Prediabetes] Onset: 5 05-06-2025 Episodic E Codes: Fall (11 sources) Fall; Translations: [Unspecified fall, initial encounter] Onset: 5 03-01-2025 Episodic Essential hypertension (2 sources) Essential (primary) hypertension; Translations: [Essential (primary) hypertension] Onset: Chronic Fracture of neck of femur (hip) (20 sources) Closed intertrochanteric fracture; Translations: [Displaced intertrochanteric fracture of left femur, initial encounter for closed fracture] Onset: 5 03-01-2025 Episodic Genitourinary symptoms and ill-defined conditions (19 sources) Urinary catheter in situ; Translations: [Presence of urogenital implants] Onset: 5 04-17-2025 Chronic Malaise and fatigue (4 sources) Asthenia; Translations: [Other malaise] 03-04-2025 Episodic Miscellaneous mental health disorders (1 source) Insomnia disorder related to another mental disorder; Translations: [Insomnia due to other mental disorder] 02-04-2025 Chronic Mood disorders (4 sources) Depressive disorder; Translations: [Depression] 03-04-2025 Chronic Mood disorders (1 source) Mood disorders; Translations: [Anxiety and depression] Onset: Mycoses (2 sources) Onychomycosis; Translations: [Tinea unguium] 04-24-2025 Episodic Nutritional deficiencies (1 source) Undernutrition; Translations: [Unspecified protein-calorie malnutrition] 04-17-2025 Chronic Osteoarthritis (2 sources) Bilateral osteoarthritis of knees; Translations: [Bilateral primary osteoarthritis of knee] 01-17-2024 Chronic Other aftercare (1 source) Long-term current use of anticoagulant; Translations: [MCC (current) use of anticoagulants] 04-17-2025 Episodic Other aftercare (1 source) Encounter for other orthopedic aftercare; Translations: [Encounter for other orthopedic aftercare] Onset: Episodic Other connective tissue disease (20 sources) History of repair of hip joint; Translations: [Presence of unspecified artificial hip joint] Onset: 5 04-17-2025 Chronic Other connective tissue disease (1 source) Presence of unspecified artificial hip joint; Translations: [S/P hip hemiarthroplasty] Onset: Chronic Other connective tissue disease (20 sources) Other symptoms and signs involving the musculoskeletal system; Translations: [Other musculoskeletal symptoms referable to limbs] Onset: 5 04-17-2025 Episodic Other connective tissue disease (1 source) Pain in left lower leg; Translations: [Pain in left lower leg] Onset: Episodic Other ear and sense organ disorders (2 sources) Impacted cerumen in right ear; Translations: [Impacted cerumen, right ear] 02-04-2025 Episodic Other hereditary and degenerative nervous system conditions (2 sources) Impaired cognition; Translations: [Mild cognitive impairment, so stated] 12-10-2024 Chronic Other hereditary and degenerative nervous system conditions (2 sources) Mild cognitive impairment, so stated; Translations: [Cognitive impairment, mild, so stated] Onset: Chronic Other nervous system disorders (20 sources) Walking disability; Translations: [Difficulty in walking, not elsewhere classified] Onset: 5 01-13-2025 Chronic Other nervous system disorders (1 source) Difficulty in walking, not elsewhere classified; Translations: [Ambulatory dysfunction] Onset: Chronic Other nervous system disorders (20 sources) Impairment of balance; Translations: [Other abnormalities of gait and mobility] Onset: 5 11-05-2024 Episodic Other nervous system disorders (1 source) Impaired cognition 01-24-2025 Episodic Other nervous system disorders (1 source) Other abnormalities of gait and mobility; Translations: [Balance disorder] Onset: 5 Episodic Other non-traumatic joint disorders (12 sources) Pain in left knee; Translations: [Left knee pain] Onset: 5 01-16-2024 Episodic Phlebitis; thrombophlebitis and thromboembolism (2 sources) Acute deep vein thrombosis of lower limb; Translations: [Acute embolism and thrombosis of unspecified deep veins of left proximal lower extremity] 04-17-2025 Episodic Residual codes; unclassified (3 sources) Dependence on other enabling machines and devices; Translations: [Dependence on other enabling machines] Onset: 5 11-05-2024 Chronic Residual codes; unclassified (4 sources) Finding related to ability to manage personal health care; Translations: [Other specified health status] 11-05-2024 Episodic Residual codes; unclassified (5 sources) Insomnia; Translations: [Insomnia, unspecified] 03-04-2025 Episodic Residual codes; unclassified (1 source) Edema; Translations: [Edema, unspecified] 05-06-2025 Episodic Thyroid disorders (9 sources) Hypothyroidism; Translations: [Hypothyroidism, unspecified] Onset: 4 11-05-2024 Chronic Unclassified (2 sources) Acute embolism and thrombosis of left peroneal vein; Translations: [Acute embolism and thrombosis of left peroneal vein] Onset: 5 Unclassified (1 source) 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); Translations: [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)] Onset: 5 Urinary tract infections (5 sources) Recurrent urinary tract infection; Translations: [Urinary tract infection, site not specified] 02-19-2025 Episodic Past or Other Problems Problem Classification Problem Date Documented Da te Episodic/Chronic Administrative/social admission (8 sources) First encounter by subject; Translations: [Persons encountering health services in other specified circumstances] Onset: 11-05-2024 11-05-2024 Episodic Genitourinary symptoms and ill-defined conditions (12 sources) Unable to void urine; Translations: [Retention of urine, unspecified] Onset: 12-23-2024 11-05-2024 Episodic Other screening for suspected conditions (not mental disorders or infectious disease) (2 sources) Patient encounter status; Translations: [Encounter for screening for lipoid disorders] Onset: 11-17-2024 11-05-2024 Episodic Residual codes; unclassified (1 source) Disorientation, unspecified; Translations: [Disorientation, unspecified] Onset: 01-29-2025 Episodic Residual codes; unclassified (1 source) Other specified health status; Translations: [Self-catheterizes urinary bladder] Onset: 12-23-2024 Episodic Results Test Name Value Interpretation Reference Range Facility [facility] 05-07-2025 CNPN Telephone (INTMWS) MICHAELA BRANDT ([id number]) 1940 F Date Time Provider Department 05/07/25 DILLAN SANTIAGO During your visit today, we recorded the following information about you: Michaelle Tai, RN 05/07/2025 11:16 AM Signed Evelin Lora [facility] reports pt has fine crackles in the bases of her lungs again. Reports patient denies Shortness of Breath, and the swelling has decreased. No fever. Otherwise, besides pt's anxiety she feels great. Asking if pcp wants to order a CXR? If pcp wants to order a CXR please fax order to Jose M Zheng at fax # [phone] Please advise and phone Ivis with reply: [phone] Dillan Santiago MD 05/11/2025 5:08 PM Signed Do not want chest xr just yet Is she taking her lasix as ordered, 2 times a week? Dillan Patel MD, M Robin, RN 05/12/2025 1:25 PM Signed Phoned Ivis and given provider's message below. Ivis states she believes pt is taking the lasix as ordered 2 x's a week. Ivis is not at work today but will double check when she goes back and call back if there has been a change in how pt is taking the lasix. Allergies As of Date: 05/07/2025 (No Known Allergies) Date Reviewed: 05/06/2025 Reviewed by: Stefanie Schaffer LPN - Fully Assessed Reason for Visit: [facility] requesting order [Other] Prescriptions as of 05/12/2025 - sodium chloride 0.9 % IRRIGATION Irrigate 60 mL as instructed once daily as needed. - furosemide (LASIX) 20 mg tablet Please give her Sunday and in the morning. Or if her weight increases by 3 pounds on any given day, give one pill on that day - apixaban (ELIQUIS) 5 mg tab(s) Take 1 tablet by mouth two times a day. - busPIRone (BUSPAR) 5 mg tablet Take 1 tablet by mouth two times a day. - clonazePAM (KLONOPIN) 0.5 mg tablet Take 1 tablet by mouth three times a day as needed for anxiety for up to 30 days. - citalopram (CELEXA) 20 mg tablet Take 1 tablet by mouth once daily. - ascorbic acid (VITAMIN C ORAL) Take by mouth once daily. - donepezil (ARICEPT) 10 mg tablet Take 1 tablet by mouth daily after breakfast. - clonazePAM (KLONOPIN) 0.5 mg tablet Take 1 tablet by mouth three times a day as needed for anxiety for up to 30 days. Patient should start on January 31, 2025. - Catheter ([facility] F[facility] Self catheterizes four times daily - levothyroxine (EUTHYROX) 50 mcg tablet Take 1 tablet by mouth once daily. Problem List As Of Date 05/07/2025 Noted Resolved Urinary catheter in place [Z96.0] 04/17/2025 Ambulatory dysfunction [R26.2] 04/17/2025 Pressure injury of sacral region, unstageable (*04/17/2025 DELMY (dementia of Alzheimer type) ([facility]) [G30.9, *04/17/2025 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] 04/17/2025 Closed fracture of left hip ([facility]) [S72.002A] 04/17/2025 Balance disorder [R26.89] 04/17/2025 Weakness of both lower extremities [R29.898] 04/17/2025 Encounter Status:Closed by Michaelle TAI on 05/12/25 [place] [facility] 05-06-2025 CNOV Office Visit (GERIWR ) MICHAELA BRANDT ([id number]) 1940 F Date Time Provider Department 05/06/25 11:30 AM DILLAN SANTIAGO During your visit today, we recorded the following information about you: Pulse Respiration Blood pressure Weight 62/minute 12/minute 144/64 55.8 kg Dillan Santiago MD 05/06/2025 12:49 PM Signed Reason for Visit Follow up HPI Michaela Brandt is a 84-year-old female, with a history of urinary retention requiring self-catheterization, presenting for follow-up on lower extremity edema and urinary catheter management. She is accompanied by her daughter, who is providing additional history. Michaela is currently receiving home care services, including retirement, physical therapy, and occupational therapy. She has aides assisting her from [phone] and [phone] daily. Due to financial constraints, the family is considering reducing the hours of aide services. Michaela has been experiencing lower extremity edema, which her daughter reports is managed by elevating her feet. She is currently on Eliquis 5 mg BID, initiated for a lower extremity blood clot post-hip surgery. She denies dyspnea. Michaela has a history of urinary retention and has been self-catheterizing for an extended period. Recently, she had a urinary catheter placed, which repeatedly dislodged. A skilled nurse suggested that the catheter may be dislodging due to Michaela's long history of self-catheterization, leading to increased urethral elasticity. Michaela expresses a strong preference for continuing self-catheterization and is opposed to having a permanent catheter. She denies hematuria and reports no current symptoms of a UTI, such as dysuria. She typically self-catheterizes four times a day but occasionally does so at night. Michaela has also been experiencing weight loss, with a decrease from 134 lbs to 123 lbs over the past two months. She reports that her weight has stabilized. She was started on Aricept 3 months ago for memory issues and reports no significant side effects. She is able to ambulate to the bathroom using a walker and is not using a wheelchair. She also mentions having a gentleman friend who visits twice a week. Social History Tobacco Use Smoking status: Never Smokeless tobacco: Never Vaping Use Vaping status: Never Used Substance Use Topics Alcohol use: Never Drug use: Never Past medical history, appointments, medications, allergies reviewed. Pertinent Lab/Diagnostic Studies are reviewed and discussed today Current Outpatient Medications: clonazePAM (KLONOPIN) 0.5 mg tablet citalopram (CELEXA) 20 mg tablet ascorbic acid (VITAMIN C ORAL) donepezil (ARICEPT) 10 mg tablet levothyroxine (EUTHYROX) 50 mcg tablet sodium chloride 0.9 % IRRIGATION furosemide (LASIX) 20 mg tablet apixaban (ELIQUIS) 5 mg tab(s) clonazePAM (KLONOPIN) 0.5 mg tablet Catheter (SELF-CATHETER, FEMALE) 14 Fr [facility] [facility] [place] DTaP,Tdap,Td Vaccine(1 - Tdap) Bone Density Screening Shingrix Vaccine(2 of 3) RSV Vaccine(1 - 1-dose 75+ series) Pneumococcal Vaccine: 50+(2 of 2 - PCV) Covid-19 Vaccine( season) Advance Directive Discussion Medicare Advantage Annual Wellness Visit@ Review Of Systems Constitutional: (+) unintentional weight loss Cardiovascular: (+) bilateral lower extremity edema Respiratory: (-) shortness of breath Genitourinary: (-) dysuria, (-) hematuria Musculoskeletal: (-) hip pain Psychiatric: (+) tearfulness Physical Exam BP 144/64 Pulse 62 Resp 12 Wt 55.8 kg (123 lb) LMP (LMP Unknown) SpO2 98% GENERAL: NAD, alert and oriented in te wheel chair SKIN: Unremarkable, no rash or skin lesions. HEAD: Normocephalic. EYES: PERRLA, EOMI, conjunctiva clear. EARS: External ears normal, canals clear, TM's normal. LUNGS: Bilateral crackles noted at the bases, decreased with deep breaths. No wheezes/rhonchi. HEART: Regular rate and rhythm, no murmurs. No ectopy. EXTREMITIES: Pitting edema noted from feet to thighs. NEURO: Awake, alert and oriented x3, cranial nerves II-XII grossly intact, normal gait, no involuntary motions. Labs Imaging - Foot X-ray: No fracture identified Assessment and Plan 1. Acute heart failure, unspecified heart failure type (HCC) (I50.9) Patient exhibits bilateral crackles at the lung bases and peripheral edema, indicating potential fluid overload. Oxygen saturation remains stable. Recent weight loss noted, but fluid retention is evident. - Ordered 2D echocardiogram to assess cardiac function. - Initiated Lasix twice weekly (Sunday and ) with additional dose if weight increases by 3 lbs on any given day. - Encouraged deep breathing exercises to aid in pulmonary clearance. - Follow-up on echocardiogram results to determine further management. 2. Prediabetes (R73.03) 3. Urinary retention (R33.9) Self-catheterize (more content not included)... Normal [facility] MIC[facility]EL[facility]AND[facility] ([id number]) 1940 F Date Time Provider Department 05/06/25 DILLAN SANTIAGO INTMWS During your visit today, we recorded the following information about you: Kecia Red, RN 05/06/2025 5:03 PM Signed Gabi PT with [facility] calls to let provider know that patient is reporting increased anxiety and depression and forgot to mention it at her appointment today. Call placed to patient to gather further information. Spoke to daughter. Daughter reports that patient definitely has a lot going on in the sense of becoming overwhelmed and having anxiety and depression. She reports that she didn't say anything at the OV as she tries to let patient guide the visit but she would be on board with additional help for anxiety/depression. Daughter also reports that she currently has caregivers in the home but that is not going to last long d/t the cost so she has started to look at Assisted Living options which will further affect patient and her anxiety/depression. Currently ordered Celexa 20 mg but just started on 04/20/2025. Please review and advise. Kecia Red, Dillan Huntley MD 05/06/2025 7:09 PM Signed I started her on buspar. Regards, Mike Oviedo MD, MA 05/07/2025 2:33 PM Signed The following approved medication requests have been transmitted electronically. Requested Prescriptions Signed Prescriptions Disp Refills busPIRone (BUSPAR) 5 mg tablet 60 tablet 3 Sig: Take 1 tablet by mouth two times a day. Authorizing Provider: DILLAN SANTIAGO MA Allergies As of Date: 05/06/2025 (No Known Allergies) Date Reviewed: 05/06/2025 Reviewed by: Stefanie Schaffer LPN - Fully Assessed Reason for Visit: Anxiety [9] Order(s):busPIRone (BUSPAR) 5 mg tabletTake 1 tablet by mouth two times a day.Disp: 60 tabletRfl: 3 Prescriptions as of 05/07/2025 - sodium chloride 0.9 % IRRIGATION Irrigate 60 mL as instructed once daily as needed. - furosemide (LASIX) 20 mg tablet Please give her Sunday and in the morning. Or if her weight increases by 3 pounds on any given day, give one pill on that day - apixaban (ELIQUIS) 5 mg tab(s) Take 1 tablet by mouth two times a day. - busPIRone (BUSPAR) 5 mg tablet Take 1 tablet by mouth two times a day. - clonazePAM (KLONOPIN) 0.5 mg tablet Take 1 tablet by mouth three times a day as needed for anxiety for up to 30 days. - citalopram (CELEXA) 20 mg tablet Take 1 tablet by mouth once daily. - ascorbic acid (VITAMIN C ORAL) Take by mouth once daily. - donepezil (ARICEPT) 10 mg tablet Take 1 tablet by mouth daily after breakfast. - clonazePAM (KLONOPIN) 0.5 mg tablet Take 1 tablet by mouth three times a day as needed for anxiety for up to 30 days. Patient should start on January 31, 2025. - Catheter (SELF-CATHETER, FEMALE) 14 Fr misc Self catheterizes four times daily - levothyroxine (EUTHYROX) 50 mcg tablet Take 1 tablet by mouth once daily. 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 Encounter Status:Closed by MIKE GUO on 05/07/25 Normal [facility] Comprehensive metabolic 2000 panelon 05-06-2025 Albumin [Mass/Vol] 3.8 g/dL Low 3.9-4.9 [facility] Comment on above: Order Comment: Speci men Type: BLOOD SPECIMENOrdering Facility: [facility] Address: [address] [place] [address] Performed By: #### 2 4323-8, 53751-4 ####[facility] LABCLIA [id number] [place] [address] [place] ALP [Catalytic activity/Vol] 100 U/L Normal 34-123 [facility] Comment on above: Order Comment: Speci men Type: BLOOD SPECIMENOrdering Facility: [facility] Address: [address] [place] [address] Performed By: #### 2 4323-8, 95932-6 ####[facility] LABCLIA [id number] [facility] [address] [address] [place] ALT [Catalytic activity/Vol] 9 U/L Normal 7-38 [facility] Comment on above: Order Comment: Speci men Type: BLOOD SPECIMENOrdering Facility: [facility] Address: [address] [place] [address] Performed By: #### 2 4323-8, 11194-7 ####[facility] LABCLIA [id number] [facility] [address], [facility] [place] Anion gap [Moles/Vol] 11 mmol/L Normal 8-15 [facility] Comment on above: Order Comment: Speci men Type: BLOOD SPECIMENOrdering Facility: [facility] Address: [address] [place] [address] Performed By: #### 2 4323-8, 30536-0 ####[facility] LABCLIA [id number] [place] [id number] [place] AST [Catalytic activity/Vol] 17 U/L Normal 13-35 [facility] Comment on above: Order Comment: Speci men Type: BLOOD SPECIMENOrdering Facility: [facility] Address: [address] [place] [address] Performed By: #### 2 4323-8, 40988-7 ####[facility] LABCLIA [id number] [facility] [address] [place] [address] [place] Bilirubin [Mass/Vol] 0.7 mg/dL Normal 0.2-1.3 [facility] Comment on above: Order Comment: Speci men Type: BLOOD SPECIMENOrdering Facility: [facility] Address: [address] [place] [address] Performed By: #### 2 4323-8, 21833-8 ####[facility] LABCLIA [id number] [place] [id number] [place] Calcium [Mass/Vol] 9.2 mg/dL Normal 8.5-10.2 [facility] Comment on above: Order Comment: Speci men Type: BLOOD SPECIMENOrdering Facility: [facility] Address: [address] [place] [address] Performed By: #### 2 4323-8, 15299-5 ####[facility] LABCLIA [id number] [place] [id number] [place] Chloride [Moles/Vol] 104 mmol/L Normal 98-107 [facility] Comment on above: Order Comment: Speci men Type: BLOOD SPECIMENOrdering Facility: [facility] Address: [address] [place] [address] Performed By: #### 2 4323-8, 96523-3 ####[facility] LABCLIA [id number] [place] [address] [place] CO2 [Moles/Vol] 24 mmol/L Normal 22-30 [facility] Comment on above: Order Comment: Speci men Type: BLOOD SPECIMENOrdering Facility: [facility] Address: [address] [place] [address] Performed By: #### 2 4323-8, 17446-8 ####[facility] LABCLIA [id number] [place] [address] [place] Creatinine [Mass/Vol] 0.70 mg/dL Normal 0.58-0.96 [facility] Comment on above: Order Comment: Speci men Type: BLOOD SPECIMENOrdering Facility: [facility] Address: [address] [place] [address] Performed By: #### 2 4323-8, 74690-4 ####[facility] LABCLIA [id number] [place] [id number] [place] Creatinine and Glomerular filtration rate.predicted panel (S/P/Bld) 85 mL/min/1.73m??? Normal >=60 [facility] Comment on above: Order Comment: Marcel hopper Type: BLOOD SPECIMENOrdering Facility: [facility] Address: [address] [place] [address] Result Comment: Linda mated Glomerular Filtration Rate (eGFR) is calculated using the 2020 CKD-EPI creatinine equation. This equation utilizes serum creatinine, sex, and age as parameters. The creatinine assay has traceable calibration to isotope dilution-mass spectrometry. Refer to KDIGO guidelines for clinical interpretation. In patients with unstable renal function, e.g. those with acute kidney injury, the eGFR may not accurately reflect actual GFR. Performed By: #### 2 4323-8, 24292-6 ####[facility] [id number] [place] [address] [place] Glucose [Mass/Vol] 93 mg/dL Normal 74-99 [facility] Comment on above: Order Comment: Marcel hopper Type: BLOOD SPECIMENOrdering Facility: [facility] Address: [address] [place] [address] Result Comment: The [place] Diabetes Association (ADA) provides guidance for cutoff values for fasting glucose and random glucose. The ADA defines fasting as no caloric intake for at least 8 hours. Fasting plasma glucose results between 100 to 125 mg/dL indicate increased risk for diabetes (prediabetes). Fasting plasma glucose results greater than or equal to 126 mg/dL meet the criteria for diagnosis of diabetes. In the absence of unequivocal hyperglycemia, results should be confirmed by repeat testing. In a patient with classic symptoms of hyperglycemia or hyperglycemic crisis, random plasma glucose results greater than or equal to 200 mg/dL meet the criteria for diagnosis of diabetes. Reference: Standards of Medical Care in Diabetes 2016, [place] Diabetes Association. Diabetes Care. 2016.39(Suppl 1). Performed By: #### 2 4323-8, 81040-4 ####[facility] [id number] [place] [id number] [place] Potassium [Moles/Vol] 4.0 mmol/L Normal 3.7-5.1 [facility] Comment on above: Order Comment: Marcel hopper Type: BLOOD SPECIMENOrdering Facility: [facility] Address: [address] [place] [address] Performed By: #### 2 4323-8, 85665-0 ####[facility] LABCLIA [id number] [address] [address] [place] Protein [Mass/Vol] 6.6 g/dL Normal 6.3-8.0 [facility] Comment on above: Order Comment: Speci men Type: BLOOD SPECIMENOrdering Facility: [facility] Address: [address] [place] [address] Performed By: #### 2 4323-8, 26433-3 ####[facility] LABIA [id number] [place] [address] [place] Sodium [Moles/Vol] 139 mmol/L Normal 136-144 [facility] Comment on above: Order Comment: Speci men Type: BLOOD SPECIMENOrdering Facility: [facility] Address: [address] [place] [address] Performed By: #### 2 4323-8, 65999-4 ####[facility] LABIA [id number] [place] [address] [place] Urea nitrogen [Mass/Vol] 14 mg/dL Normal 7-21 [facility] Comment on above: Order Comment: Speci men Type: BLOOD SPECIMENOrdering Facility: [facility] Address: [address] [place] [address] Performed By: #### 2 4323-8, 95212-4 ####[facility] LABCLIA [id number] [place] [id number] [place] HbA1c (Bld)on 05-06-2025 Average glucose Estimated from glycated hemoglobin (Bld) [Mass/Vol] 74 mg/dL Normal [facility] Comment on above: Order Comment: Speci men Type: BLOOD SPECIMENOrdering Facility: [facility] Address: [address] [place] [address] Result Comment: eAG: (Estimated average glucose) is a calculated value from HgbA1c and is signs and displays sales representative of the average blood glucose level in the last 2-3 month period. Performed By: #### 5 5454-3 ####[facility] [id number] [address] [place] HbA1c (Bld) [Mass fraction] 4.2 % Low 4.3-5.6 [facility] Comment on above: Order Comment: Marcel hopper Type: BLOOD SPECIMENOrdering Facility: [facility] Address: [address] [place] [address] Result Comment: [place] Diabetes Association guidelines indicate that patients with HgbA1c in the range 5.7-6.4% are at increased risk for development of diabetes, and intervention by lifestyle modification may be beneficial. HgbA1c greater or equal to 6.5% is considered diagnostic of diabetes. Performed By: #### 5 5454-3 ####[facility] [id number] [address] [place] NT-proBNP [facility] 05-06 Natriuretic peptide.B prohormone N-Terminal [Mass/Vol] 113 pg/mL Normal <450 [facility] Comment on above: Order Comment: Marecl hopper Type: BLOOD SPECIMENOrdering Facility: [facility] Address: [address] [place] [address] Performed By: #### 2 4323-8, 62721-0 ####[facility] [id number] [address] [place] CNPNon 05-04-2025 CNPN Telephone (FAMPWS) MICHAELA BRANDT ([id number]) 1940 F Date Time Provider Department 05/04/25 DILLAN SANTIAGO During your visit today, we recorded the following information about you: Nisha Clayton LPN 05/04/2025 8:50 AM Signed Brittni with [facility] calls in regards to TE from 04/24: Solange Craig RN MG 04/24/25 11:13 AM Note Brissa from [facility] is calling due to she saw patient today and states that patient has bilat lung crackles in bases of lungs, no cough or SOB, O2 on room air was 99%, patient has developed 2+ bilateral lower leg swelling and tingling in left fingers. Nurse is wanting to know if you would like to order a chest x-ray, BNP, CMP, and A1C for patient? Please review and advise, nurse needs called back with information. Pt's daughter also called in that day and it was recommended by RN to take pt to ER. Brittni reports as far as she knows pt did not go to ER. Brittni reports nurse saw pt on Tuesday 04/24. Brittni is still requesting VO for the above labs and CXR. RAMIREZ Tee Chitra, MD 05/04/2025 4:00 PM Signed Verbal ok to order all these labs chest x-ray, BNP, CMP, and A1C for patient? Dillan Patel MD, Lisa, MA 05/04/2025 4:11 PM Signed Detailed message on secure voicemail. Pamela Power MA May 04, 2025 4:11 PM Allergies As of Date: 05/04/2025 (No Known Allergies) Date Reviewed: 04/17/2025 Reviewed by: Mike Guo MA - Fully Assessed Reason for Visit: Edema [39] Prescriptions as of 05/04/2025 - clonazePAM (KLONOPIN) 0.5 mg tablet Take 1 tablet by mouth three times a day as needed for anxiety for up to 30 days. - citalopram (CELEXA) 20 mg tablet Take 1 tablet by mouth once daily. - ascorbic acid (VITAMIN C ORAL) Take by mouth once daily. - donepezil (ARICEPT) 10 mg tablet Take 1 tablet by mouth daily after breakfast. - clonazePAM (KLONOPIN) 0.5 mg tablet Take 1 tablet by mouth three times a day as needed for anxiety for up to 30 days. Patient should start on January 31, 2025. - Catheter (SELF-CATHETER, FEMALE) 14 Fr misc Self catheterizes four times daily - levothyroxine (EUTHYROX) 50 mcg tablet Take 1 tablet by mouth once daily. 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 Patient was sent home from ortho rehab with a catheter but has pulled it out. Patient is fighting placed catheter but home health reports cognitive issues and doubts her ability to straight cath. Home health requesting catheter size and placement of orders. Please fax to Savanah at [facility] [phone]. JAIRON notes faxed through [facility]. EVON Miller Courtney, ZACHARIAH 04/27/2025 4:19 PM Signed JAIRON 12/23/24 Nusrat Cerspo LPN 05/04/2025 9:05 AM Signed Tom Baltazar PA-C You3 days ago Yejitendra I though Silas was doing this VADIM Stanford MT, PA-C You Tom Baltazar PA-C5 days ago KURTIS Hayes, do you want this sent to PCP to address? Patient was seen previously by you you once and was to [facility]. RAMIREZ Valdes Chitra, MD 05/04/2025 4:02 PM Signed I dont usually do the catheters and have not done for her. I would like Urology to take care of this Amanda, Nusrat Cui MD, LPN 05/06/2025 10:03 AM Signed Tom Baltazar PA-C You; [facility] Urology Pool; Desi Bergman RN1 hour ago (8:44 AM) Please write orders and fax to [place] today id needed [facility]. VADIM Baltazar MT, PA-C Orders pended. Please review and sign. RAMIREZ Valdes Kimberly, LPN 05/06/2025 10:03 AM Signed Addended by: NUSRAT CRESPO on: 05/06/2025 10:03 AM Modules accepted: Orders Tom Baltazar PA-C 05/06/2025 10:48 AM Signed Addended by: TOM BALTAZAR on: 05/06/2025 10:48 AM Modules accepted: Dillan Estrella MD 05/06/2025 12:05 PM Signed Here is the trail of the catheter discussion. Regards, Nusrat Cui MD, LPN 05/06/2025 3:41 PM Signed Orders, urology office notes faxed to [facility]. RAMIREZ Valdes Kimberly, LPN 05/06/2025 3:50 PM Signed Called [facility], phone number for Savanah. Informed orders/office notes for urology in 12/23/2024 faxed. Awaiting lizarraga cathter size from provider. Nusrat Crespo LPN Spencer NusratRAMIREZ carrera 05/07/2025 12:50 PM Signed Tom Baltazar PA-C You18 hours ago (5:52 PM) I am not the provider who has pt under home health care, that provider should be ordering the lizarraga exchanges and supplies needed. Tom Baltazar MPAS, NVNASIR Called Savanah with Home Health on secured line- no answer. Left message from Tom. Nusrat Crespo LPN Allergies As of Date: 04/27/2025 (No Known Allergies) Date Reviewed: 04/17/2025 Reviewed by: Mike Guo MA - Fully Assessed Reason for Visit: Orders [681] Cmt: Self catheter Primary Visit Diagnosis:Urine retention [R33.9] Order(s):CATHETER INSERT-LIZARRAGA [[id number]] Order #: [id number] STANDING BEDSIDE DRAINAGE BAG [[id number]] Order #: [id number] STANDING sodium chloride 0.9 % IRRIGATIONIrrigate 60 mL as instructed once daily as needed.Disp: 1999 mLRfl: 3 BEDSIDE DRAINAGE BAG [[id number]] Order #: [id number] Prescriptions as of 05/07/2025 - sodium chloride 0.9 % IRRIGATION Irrigate 60 mL as instructed once daily as needed. - furosemide (LASIX) 20 mg tablet Please give her Sunday and in the morning. Or if her weight increases by 3 pounds on any given day, give one pill on that day - apixaban (ELIQUIS) 5 mg tab(s) Take 1 tablet by mouth two times a day. - busPIRone (BUSPAR) 5 mg tablet Take 1 tablet by mouth two times a day. - clonazePAM (KLONOPIN) 0.5 mg tablet Take 1 tablet by mouth three times a day as needed for anxiety for up to 30 days. - citalopram (CELEXA) 20 mg tablet Take 1 tablet by mouth once daily. - ascorbic acid (VITAMIN C ORAL) Take by mouth once daily. - donepezil (ARICEPT) 10 mg tablet Take 1 tablet by mouth daily after breakfast. - clonazePAM (KLONOPIN) 0.5 mg tablet Take 1 tablet by mouth three times a day as needed for anxiety for up to 30 days. Patient should start on January 31, 2025. - Catheter (SELF-CATHETER, FEMALE) 14 Fr misc Self catheterizes four times daily - levothyroxine (EUTHYROX) 50 mcg tablet Take 1 tablet by mouth once daily. 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 Normal [facility] CNPMarilu 04-24-2025 CNPN Telephone (COUMAKOSUA) MICHAELA BRANDT ([id number]) 1940 F Date Time Provider Department 04/24/25 DILLAN SANTIAGO COUMAKOSUA During your visit today, we recorded the following information about you: Solange Craig, RN 04/24/2025 11:13 AM Aleisha conti [facility] is calling due to she saw patient today and states that patient has bilat lung crackles in bases of lungs, no cough or SOB, O2 on room air was 99%, patient has developed 2+ bilateral lower leg swelling and tingling in left fingers. Nurse is wanting to know if you would like to order a chest x-ray, BNP, CMP, and A1C for patient? Please review and advise, nurse needs called back with information. Porsha Vasquez RN 04/24/2025 3:00 PM Signed Patient's daughter Maribeth Shin calling regarding patient. Expresses concern that patient is declining. Reports patient's current weight is 106.6 lbs. Per record pt was approx 127 lbs on 04/17/25. Reports lower extremity edema, abnormal lung sounds, decreased appetite, decreased mental state and 2-5 episodes of diarrhea per day. Urinary catheter was noted to be out, was replaced today. Daughter reports HH staff heard fluid in pt's lungs. With this call, along with previous note requesting imaging and blood work, and pt's Full Code status, this nurse advised ER based on all sx's. Daughter agreeable. ZACHARIAH Mckinney Amanda, RN 04/24/2025 4:13 PM Signed Pts daughter called in and was asking about if she should take her mother to [facility] ER or a [facility] ER. She states since she is affiliated with [facility] would it be in her best interest to just go to the [facility]. I told her that is up to her, but the closest one would be [place], [facility], or [place]. She said if they went to [facility] they could always get her transfer to a [facility] facility. I told her it really depends on what they find when they do blood work when she get there. She said she would talk it over with her . Gabi Mcelroy RN Allergies As of Date: 04/24/2025 (No Known Allergies) Date Reviewed: 04/17/2025 Reviewed by: Mike Guo MA - Fully Assessed Reason for Visit: Patient Update [1234] Prescriptions as of 04/28/2025 - citalopram (CELEXA) 20 mg tablet Take 1 tablet by mouth once daily. - clonazePAM (KLONOPIN) 0.5 mg tablet Take 1 tablet by mouth three times a day as needed for anxiety for up to 30 days. - ascorbic acid (VITAMIN C ORAL) Take by mouth once daily. - donepezil (ARICEPT) 10 mg tablet Take 1 tablet by mouth daily after breakfast. - clonazePAM (KLONOPIN) 0.5 mg tablet Take 1 tablet by mouth three times a day as needed for anxiety for up to 30 days. Patient should start on January 31, 2025. - Catheter (SELF-CATHETER, FEMALE) 14 Fr misc Self catheterizes four times daily - levothyroxine (EUTHYROX) 50 mcg tablet Take 1 tablet by mouth once daily. Problem List As Of Date 04/24/2025 Noted Resolved Urinary catheter in place [Z96.0] 04/17/2025 Ambulatory dysfunction [R26.2] 04/17/2025 Pressure injury of sacral region, unstageable (*04/17/2025 DELMY (dementia of Alzheimer type) ([facility]) [G30.9, *04/17/2025 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] 04/17/2025 Closed fracture of left hip ([facility]) [S72.002A] 04/17/2025 Balance disorder [R26.89] 04/17/2025 Weakness of both lower extremities [R29.898] 04/17/2025 Encounter Status:Closed by SOLANGE CRAIG on 04/28/25 [facility] MICHAELA BRANDT ([id number]) 1940 F Date Time Provider Department 04/21/25 DILLAN SANTIAGO [facility] During your visit today, we recorded the following information about you: Nisha Clayton LPN 04/21/2025 1:08 PM Signed Larisa with [facility] OT calls to report she saw pt today for evaluation. Larisa reports OT will see pt once x 1 week, twice x 2 weeks, then once x 6 weeks. Larisa also reports that pt has 2+ pitting edema in left foot. Larisa was advised that foot has had swelling since pt's fall. Larisa report there is no redness or pain. Pt does say there is some discomfort at times but foot is not painful. RAMIREZ Tee Chitra, MD 04/21/2025 5:24 PM Signed Would consider Compression stockings to be put on her and lifting her legs If that does not work we can give her a little lasix. Regards, Mckenzie Mcneil MD, LPN 04/22/2025 9:42 AM Signed Called and spoke to patients daughter Maribeth, will forward message to Home health Mckenzie EugeneRAMIREZ April 22, 2025 9:42 AM Allergies As of Date: 04/21/2025 (No Known Allergies) Date Reviewed: 04/17/2025 Reviewed by: Mike Guo MA - Fully Assessed Reason for Visit: Swelling [205] Prescriptions as of 04/22/2025 - citalopram (CELEXA) 20 mg tablet Take 1 tablet by mouth once daily. - clonazePAM (KLONOPIN) 0.5 mg tablet Take 1 tablet by mouth three times a day as needed for anxiety for up to 30 days. - ascorbic acid (VITAMIN C ORAL) Take by mouth once daily. - donepezil (ARICEPT) 10 mg tablet Take 1 tablet by mouth daily after breakfast. - clonazePAM (KLONOPIN) 0.5 mg tablet Take 1 tablet by mouth three times a day as needed for anxiety for up to 30 days. Patient should start on January 31, 2025. - Catheter (SELF-CATHETER, FEMALE) 14 Fr misc Self catheterizes four times daily - levothyroxine (EUTHYROX) 50 mcg tablet Take 1 tablet by mouth once daily. Problem List As Of Date 04/21/2025 Noted Resolved Urinary catheter in place [Z96.0] 04/17/2025 Ambulatory dysfunction [R26.2] 04/17/2025 Pressure injury of sacral region, unstageable (*04/17/2025 DELMY (dementia of Alzheimer type) ([facility]) [G30.9, *04/17/2025 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] 04/17/2025 Closed fracture of left hip ([facility]) [S72.002A] 04/17/2025 Balance disorder [R26.89] 04/17/2025 Weakness of both lower extremities [R29.898] 04/17/2025 Encounter Status:Closed by MCKENZIE LOMBARDO on 04/22/25 [facility] 04-20-2025 CNPN Telephone (INTMWS) CRYSTALMICHAELA DORMAN ([id number]) 1940 F Date Time Provider Department 04/20/25 DILLAN SANTIAGO INTMWS During your visit today, we recorded the following information about you: Gabi Mcelroy RN 04/20/2025 3:09 PM Signed My CAO with [facility] called in POC. She states SN will be seeing Pt three times a week for 2 weeks, then twice a week for 3 weeks, then once a week for 3 weeks. She states she is going to schedule a visit tomorrow if the provider will give them order to reinsert a lizarraga catheter. She reports that while the Pt was in the halfway she had a lizarraga catheter in, and it fell out last night. My CAO reports they do not have orders for a lizarraga cath, so they would need order to place the lizarraga and manage it. She reports the Pt had been straight cathing before, but the daughter was worried because the Pt had been getting frequent UTIs and has dementia. She reports she watched the Pt straight cath herself and she had to prompt her to clean herself before straight cathing. Pt was able to empty her bladder over the toilet, and got quite a bit out. The nurse said she told Pt and her daughter to continue to do this until she could see if she could get an order for a lizarraga cath. 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 She states she covered it with a DuoDerm. She was asking if the provider could put in an order for this to cover with a DuoDerm and change Q 2-5 days depending on soilage. Please call and advise. ZACHARIAH Antonio Amanda, ZACHARIAH 04/20/2025 3:15 PM Signed Called and left a message for My CAO with [facility] that if she has an updated medication list from when the Pt was in the halfway if she could fax that to Dr Santiago at [phone]. ZACHARIAH Antonio Beth, GAMING ASSOCIATE 04/20/2025 3:36 PM Signed My calling back she will fax list from the SNF and will have to update med list with her admission notes to [facility] and fax that when she is able. Josy Saucedo RN 04/20/2025 4:08 PM Signed Call received from My, nurse at [facility], regarding orders for Pt (see below notation). [facility] nurse observed Pt self-cath, and she was not cleansing herself well. Pt's daughter is voicing concern about Pt's inability to do this at home. [facility] is requesting order for chronic indwelling lizarraga cathether, 16F. Last OV with urology - Tom Baltazar PA-C: 12/23/2024 My [facility] nurse phone: [facility] office phone: Fax number for orders: Josy Saucedo RN April 20, 2025 4:07 PM Dillan Santiago MD 04/20/2025 5:03 PM Signed Agree Does she need orders for the 16 pu[place] rican indwelling lizarraga? Thanks Regards, Gabi Cesar MD, ZACHARIAH 04/20/2025 5:14 PM Signed My CAO with [facility] called and is notified of providers message. She voices understanding and reports that yes she does need the orders for the 16 pu[place] rican indwelling lizarraga. She states she can take a verbal order for that and we can leave a VM as her line is secure. She is also going to have her office fax over an updated medication list from when she was at the halfway when she is done with her note. ZACHARIAH nAtonio Chitra, MD 04/20/2025 5:39 PM Signed Verbal ok for the same Regards, Gabi Cesar MD, RN 04/20/2025 6:39 PM Signed Called and left a detailed voicemail notifying My CAO with [facility] of providers message. Clinic phone number was left in case she had any questions. Gabi Mcelroy RN Allergies As of Date: 04/20/2025 (No Known Allergies) Date Reviewed: 04/17/2025 Reviewed by: Mike Guo MA - Fully Assessed Reason for Visit: Patient Update [1234] Orders [681] Prescriptions as of 04/20/2025 - citalopram (CELEXA) 20 mg tablet Take 1 tablet by mouth once daily. - clonazePAM (KLONOPIN) 0.5 mg tablet Take 1 tablet by mouth three times a day as needed for anxiety for up to 30 days. - ascorbic acid (VITAMIN C ORAL) Take by mouth once daily. - donepezil (ARICEPT) 10 mg tablet Take 1 tablet by mouth daily after breakfast. - clonazePAM (KLONOPIN) 0.5 mg tablet Take 1 tablet by mouth three times a day as needed for anxiety for up to 30 days. Patient should start on January 31, 2025. - Catheter (SELF-CATHETER, FEMALE) 14 Fr misc Self catheterizes four times daily - levothyroxine (EUTHYROX) 50 mcg tablet Take 1 tablet by mouth once daily. Problem List As Of Date 04/20/2025 Noted Resolved Urinary catheter in place [Z96.0] 04/17/2025 Ambulatory dysfunction [R26.2] 04/17/2025 Pressure injury of sacral region, unstageable (*04/17/2025 DELMY (dementia of Alzheimer type) (HCC) [G30.9, *04/17/2025 S/P hip hemiarthroplasty [Z9 (more content not included)... Normal [facility] CNOVon 04-17-2025 CNOV Office Visit (INTMWS ) MICHAELA BRANDT ([id number]) 1940 F Date Time Provider Department 04/17/25 11:20 AM DILLAN SANTIAGO INTMWS During your visit today, we recorded the following information about you: Pulse Respiration Blood pressure 67/minute 16/minute 124/71 Dillan Santiago MD 04/17/2025 12:47 PM Signed We discussed your current health concerns and care plan: - Pressure Ulcers (Bedsores): - You have three small pressure ulcers (less than 1 cm each) on your left buttock and sacral region, with some moisture-associated skin damage. These are likely stage 2 or 3 but do not currently have slough, which is a positive sign for healing. - custodial will be arranged to clean and care for these wounds. They will use appropriate cleaning solutions (e.g., hypochlorous acid) and apply treatments like collagenase if needed. - It is important to offload pressure from the affected areas to promote healing. - Urinary Catheter: - You are now using a permanent urinary catheter and will no longer be able to self-catheterize. This is to prevent complications such as urinary tract infections (UTIs), which you have experienced in the past. - custodial will assist with catheter care, including monthly changes. - Physical and Occupational Therapy: - Home health services will provide physical therapy (PT) and occupational therapy (OT) to address your lower extremity weakness, balance issues, and overall mobility. This will help prevent further deconditioning and improve your ability to move safely. - Nutrition and Weight: - You have reported a decreased appetite and are not eating enough, which may be contributing to weight loss and malnutrition. - Please try to incorporate nutritional shakes (e.g., Ensure) into your diet to support healing and maintain your strength. These were helpful during your stay at [facility]. - Mental Health: - You are experiencing anxiety and depression, which have been challenging for you. Your current medications include Lexapro (recently increased) and Trazodone, which may help with these symptoms. - A psychiatric evaluation may be beneficial to further address your mental health needs. This will be coordinated as part of your care plan. - Medications: - You are currently on a blood thinner (Eliquis) due to a history of deep vein thrombosis (DVT). This will continue until May. - Other medications include Aricept (for memory), Trazodone, Lexapro, and others. We are awaiting an updated medication list from [place] to confirm all current prescriptions and dosages. - Living Arrangements: - Your daughter is exploring assisted living options for you, including a facility in [facility]. This will require private pay for two years before Medicaid can assist. In the meantime: - You will stay in your apartment for one week while your daughter prepares her home for you. - Your daughter has arranged for 16 hours of daily private care for one week to assist with your needs during this transition. - Home Health Services: - A referral has been sent to [facility] for retirement, PT, and OT. They will also assess your eligibility for additional home health aide services. - Your bobjaxon is working with [place] and other resources to explore options for affordable care beyond the initial week of private pay. - Additional Notes: - You have a history of dementia (Alzheimer?s type), ambulatory dysfunction, and fatigue. These conditions will be monitored as part of your ongoing care. - Your daughter is also addressing financial and insurance matters, including potential benefits from your late ?s service, to support your care needs. Next Steps: - custodial, PT, and OT will be arranged through home health services. Your daughter will coordinate with the providers to ensure timely care. - Continue to use your urinary catheter as directed and avoid attempting self-catheterization. - Incorporate nutritional shakes into your diet to support healing and weight maintenance. - Your daughter will follow up on assisted living arrangements and provide updates as plans progress. Please let us know if you experience any worsening symptoms, such as increased pain, signs of infection (e.g., fever, redness, or swelling around the wounds), or any other concerns. Dillan Santiago MD 04/17/2025 5:30 PM Addendum Reason for Visit Transition care follow up HPI Michaela is a 84-year-old female, with a history of dementia, presenting for evaluation following a fall and subsequent hospitalization. She is accompanied by her daughter, who is providing history on her behalf. Michaela experienced a fall on 03/01, resulting in a left hip fracture. She was admitted to a transitional care (more content not included)... Normal [facility] 04-17-2025 CNPN Telephone (INTMWS) MICHAELA BRANDT ([id number]) 1940 F Date Time Provider Department 04/17/25 DILLAN SANTIAGO INTMWS During your visit today, we recorded the following information about you: Mike Guo MA 04/17/2025 11:44 AM Signed TC to nurse at [place] to obtain current med list. Unable to reach. Left detailed message for nurse to [facility]. PCP office needs updated med list. EVON Rouse Amanda, RN 04/20/2025 6:40 PM Signed See TE from 04/20/25 My CAO with [facility] was going to have updated medication list faxed over to provider office. Gabi Mcelroy RN Allergies As of Date: 04/17/2025 (No Known Allergies) Date Reviewed: 04/17/2025 Reviewed by: Mike Guo MA - Fully Assessed Reason for Visit: Request information from halfway [Other] Prescriptions as of 04/20/2025 - citalopram (CELEXA) 20 mg tablet Take 1 tablet by mouth once daily. - clonazePAM (KLONOPIN) 0.5 mg tablet Take 1 tablet by mouth three times a day as needed for anxiety for up to 30 days. - ascorbic acid (VITAMIN C ORAL) Take by mouth once daily. - donepezil (ARICEPT) 10 mg tablet Take 1 tablet by mouth daily after breakfast. - clonazePAM (KLONOPIN) 0.5 mg tablet Take 1 tablet by mouth three times a day as needed for anxiety for up to 30 days. Patient should start on January 31, 2025. - Catheter (SELF-CATHETER, FEMALE) 14 Fr misc Self catheterizes four times daily - levothyroxine (EUTHYROX) 50 mcg tablet Take 1 tablet by mouth once daily. Problem List As Of Date 04/17/2025 Noted Resolved Urinary catheter in place [Z96.0] 04/17/2025 Ambulatory dysfunction [R26.2] 04/17/2025 Pressure injury of sacral region, unstageable (*04/17/2025 DELMY (dementia of Alzheimer type) ([facility]) [G30.9, *04/17/2025 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] 04/17/2025 Closed fracture of left hip ([facility]) [S72.002A] 04/17/2025 Balance disorder [R26.89] 04/17/2025 Weakness of both lower extremities [R29.898] 04/17/2025 Encounter Status:Closed by GABI MCELROY on 04/20/25 [place] CNPN Telephone (INTMWS) ALIZAMICHAELA ([id number]) 1940 F Date Time Provider Department 04/17/25 DILLAN SANTIAGO INTMWS During your visit today, we recorded the following information about you: Gabi Mcelroy RN 04/17/2025 10:06 AM Signed Wes ESTRADA called in and reports they received a referral for SN/PT/OT. She is asking if provider will fallow. Please call back. ZACHARIAH Antonio Chitra, MD 04/17/2025 10:43 AM Signed Will follow Dillan Patel MD, Amanda, RN 04/17/2025 10:54 AM Signed Wes with [facility] called and is notified of providers message. She voices understanding. Gabi Mcelroy RN Allergies As of Date: 04/17/2025 (No Known Allergies) Date Reviewed: 02/19/2025 Reviewed by: Carolina Hastings LPN - Fully Assessed Reason for Visit: Follow [Other] Prescriptions as of 04/17/2025 - clonazePAM (KLONOPIN) 0.5 mg tablet Take 1 tablet by mouth three times a day as needed for anxiety for up to 30 days. - ascorbic acid (VITAMIN C ORAL) Take by mouth once daily. - donepezil (ARICEPT) 10 mg tablet Take 1 tablet by mouth daily after breakfast. - clonazePAM (KLONOPIN) 0.5 mg tablet Take 1 tablet by mouth three times a day as needed for anxiety for up to 30 days. Patient should start on January 31, 2025. - Catheter (SELF-CATHETER, FEMALE) 14 Fr misc Self catheterizes four times daily - levothyroxine (EUTHYROX) 50 mcg tablet Take 1 tablet by mouth once daily. - escitalopram oxalate (LEXAPRO) 20 mg tablet Take 1 tablet by mouth once daily. - traZODone (DESYREL) 50 mg tablet Take 1 tablet by mouth daily at bedtime. Problem List As Of Date: 04/17/2025 (None) Encounter Status:Closed [facility] ([id number]) 1940 F Date Time Provider Department 04/17/25 KENTRELL MONTGOMERY During your visit today, we recorded the following information about you: Kentrell Montgomery MSW 04/17/2025 1:00 PM Signed This received consult and will work on reaching out to patient daughter to discuss social service needs. This Sw also notes that there is a message from today from [facility] noting orders for SN,PT,OT. It looks like Dr. Santiago agreed to [facility] seeing patient. Kentrell Montgomery, CHIEF SAFETY OFFICER 04/17/2025 1:49 PM Signed Sw tried call to patient daughter and vmail is full, unable to leave message. Sw will try call another time. Kentrell Montgomery, CHIEF SAFETY OFFICER 04/17/2025 3:19 PM Signed Thomas spoke with patient daughter in regards to Home Health questions and also current housing AL options. Maribeth and Thomas discussed that [facility] looks to be an option for home healthcare. Sw left message for [facility] referral line to call this Sw back to confirm if they will be serving patient home healthcare needs. Maribeth notes that [facility] will be providing home laboratory animal care veterinarian next week when patient stays at her apt. Maribeth notes that patient will then be coming to stay with her,until opening at [facility]. Maribeth notes that she is working on getting bedroom ready at there home for patient to come and stay with he. There is a wait list at [facility]. Sw will let patient daughter know what she finds out from [facility]. Maribeth also mentioned a letter for her mom's current [address] apt, to see about being released from her housing there. Sw noted that she would send message to Dr. Santiago to see what she says about letter. Dillan Santiago MD 04/17/2025 5:33 PM Signed We discussed about letter and she said she will message me when needed Regards, Dillan Santiago MD Allergies As of Date: 04/17/2025 (No Known Allergies) Date Reviewed: 04/17/2025 Reviewed by: Mike Guo MA - Fully Assessed Prescriptions as of 04/17/2025 - clonazePAM (KLONOPIN) 0.5 mg tablet Take 1 tablet by mouth three times a day as needed for anxiety for up to 30 days. - ascorbic acid (VITAMIN C ORAL) Take by mouth once daily. - donepezil (ARICEPT) 10 mg tablet Take 1 tablet by mouth daily after breakfast. - clonazePAM (KLONOPIN) 0.5 mg tablet Take 1 tablet by mouth three times a day as needed for anxiety for up to 30 days. Patient should start on January 31, 2025. - Catheter (SELF-CATHETER, FEMALE) 14 Fr misc Self catheterizes four times daily - levothyroxine (EUTHYROX) 50 mcg tablet Take 1 tablet by mouth once daily. - escitalopram oxalate (LEXAPRO) 20 mg tablet Take 1 tablet by mouth once daily. - traZODone (DESYREL) 50 mg tablet Take 1 tablet by mouth daily at bedtime. Problem List As Of Date 04/17/2025 Noted Resolved Urinary catheter in place [Z96.0] 04/17/2025 Ambulatory dysfunction [R26.2] 04/17/2025 Pressure injury of sacral region, unstageable (*04/17/2025 DELMY (dementia of Alzheimer type) ([facility]) [G30.9, *04/17/2025 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] 04/17/2025 Closed fracture of left hip ([facility]) [S72.002A] 04/17/2025 Balance disorder [R26.89] 04/17/2025 Weakness of both lower extremities [R29.898] 04/17/2025 Encounter Status:Closed by DILLAN SANTIAGO on 04/17/25 Normal [facility] Basic Metabolic Profile (BMP )on 04-09-2025 BUN Normal - [facility] Comment on above: Result Comment: Canc elled via OM: Order cancelled - Patient discharged Performed By: #### L 100.0100, L500.2500 #### [facility] [address] [place], [address] BUN/CRE Normal 10-20 [facility] Comment on above: Result Comment: Canc elled via OM: Order cancelled - Patient discharged Performed By: #### L 100.0100, L500.2500 #### [facility] [address] [place], [address] Calcium Normal 7.6-11.0 [facility] Comment on above: Result Comment: Canc elled via OM: Order cancelled - Patient discharged Performed By: #### L 100.0100, L500.2500 #### [facility] [address] [place], [address] CL Normal 98-108 [facility] Comment on above: Result Comment: Canc elled via OM: Order cancelled - Patient discharged Performed By: #### L 100.0100, L500.2500 #### [facility] [address] [place], [address] CO2 Normal 21.0-32.0 [facility] Comment on above: Result Comment: Canc elled via OM: Order cancelled - Patient discharged Performed By: #### L 100.0100, L500.2500 #### [facility] [address] [place], [address] CREAT,SERUM Normal 0.70-1.20 [facility] Comment on above: Result Comment: Canc elled via OM: Order cancelled - Patient discharged Performed By: #### L 100.0100, L500.2500 #### [facility] [address] [place], [address] eGFR Normal >60 [facility] Comment on above: Result Comment: Canc elled via OM: Order cancelled - Patient discharged Performed By: #### L 100.0100, L500.2500 #### [facility] [address] [place], [address] GAP Normal 5-15 [facility] Comment on above: Result Comment: Canc elled via OM: Order cancelled - Patient discharged Performed By: #### L 100.0100, L500.2500 #### [facility] [address] [place], [address] GLU Normal 70-99 [facility] Comment on above: Result Comment: Canc elled via OM: Order cancelled - Patient discharged Performed By: #### L 100.0100, L500.2500 #### [facility] [address] [place], [address] Potassium Normal 3.3-5.1 [facility] Comment on above: Result Comment: Canc elled via OM: Order cancelled - Patient discharged Performed By: #### L 100.0100, L500.2500 #### [facility] [address] [place], [address] Basic Metabolic Profile (BMP) Normal 133-145 [facility] Comment on above: Result Comment: Canc elled via OM: Order cancelled - Patient discharged Performed By: #### L 100.0100, L500.2500 #### [facility] [address] [place], [address] CBC W/Diff, Automatedon 05-2 Absolute Neut Normal 2.0-7.7 [facility] Comment on above: Result Comment: Canc elled via OM: Order cancelled - Patient discharged Performed By: #### L 100.0100, L500.2500 #### [facility] [address] [place], [address] HCT Normal 37-47 [facility] Comment on above: Result Comment: Canc elled via OM: Order cancelled - Patient discharged Performed By: #### L 100.0100, L500.2500 #### [facility] [address] [place], [address] HGB Normal 12.0-15.0 [facility] Comment on above: Result Comment: Canc elled via OM: Order cancelled - Patient discharged Performed By: #### L 100.0100, L500.2500 #### [facility] [address] [place], [address] MCH Normal 27.0-32.0 [facility] Comment on above: Result Comment: Canc elled via OM: Order cancelled - Patient discharged Performed By: #### L 100.0100, L500.2500 #### [facility] [address] [place], [address] MCHC Normal 32-36 [facility] Comment on above: Result Comment: Canc elled via OM: Order cancelled - Patient discharged Performed By: #### L 100.0100, L500.2500 #### [facility] [address] [place], [address] MCV Normal 81-99 [facility] Comment on above: Result Comment: Canc elled via OM: Order cancelled - Patient discharged Performed By: #### L 100.0100, L500.2500 #### [facility] [address] [place], [address] NEUT% Normal 47-70 [facility] Comment on above: Result Comment: Canc elled via OM: Order cancelled - Patient discharged Performed By: #### L 100.0100, L500.2500 #### [facility] [address] [place], [address] PLT Normal 150-450 [facility] Comment on above: Result Comment: Canc elled via OM: Order cancelled - Patient discharged Performed By: #### L 100.0100, L500.2500 #### [facility] [address] [place], [address] RBC Normal 4.2-5.4 [facility] Comment on above: Result Comment: Canc elled via OM: Order cancelled - Patient discharged Performed By: #### L 100.0100, L500.2500 #### [facility] [address] [place], [address] RDW CV Normal 11.6-14.6 [facility] Comment on above: Result Comment: Canc elled via OM: Order cancelled - Patient discharged Performed By: #### L 100.0100, L500.2500 #### [facility] [address] [place], [address] RDW SD Normal 35.1-43.9 [facility] Comment on above: Result Comment: Canc elled via OM: Order cancelled - Patient discharged Performed By: #### L 100.0100, L500.2500 #### [facility] [address] [place], [address] WBC Normal 4.4-11.0 [facility] Comment on above: Result Comment: Canc elled via OM: Order cancelled - Patient discharged Performed By: #### L 100.0100, L500.2500 #### [facility] [address] [place], [address] Absolute lymphocyte countOrd ered By: Adele Gusman on 04-06-2025 Lymphocytes Auto (Unsp spec) [#/Vol] 1.67 10*3/uL 0.83-4.51 [facility] Absolute neutrophil countOrd ered By: Adele Gusman on 04-06-2025 Neutrophils (Bld) [#/Vol] 6.8 10*3/uL 2.0-7.7 [facility] Anion gap in Serum or Plasma Ordered By: Adele Gusman on 04-06-2025 Anion gap [Moles/Vol] 10 mmol/L 5-15 [facility] Automated lymphocyte count a s percentage of total leukocytesOrdered By: Adele Gusman on 04-06-2025 Lymphocytes/100 WBC Auto (Unsp spec) 17.8 % Low 19-41 [facility] BUN/creatinine ratioOrdered By: Adele Gusman on 04-06-2025 Urea nitrogen/Creatinine [Mass ratio] 18.7 mg/mg 10-20 [facility] Basophil percentageOrdered B y: Adele Gusman on 04-06-2025 Basophils/100 WBC (Bld) 0.4 % 0-1 [facility] Carbon dioxide, total [Moles /volume] in Central venous bloodOrdered By: Adele Gusman on 04-06-2025 CO2 [Moles/Vol] 25.7 mmol/L 21.0-32.0 [facility] Chloride assayOrdered By: Jennifer Gusman on 04-06-2025 Chloride [Moles/Vol] 106 mmol/L 98-[address] [facility] Eosinophil percentageOrdered By: Adele Gusman on 04-06-2025 Eosinophils/100 WBC (Bld) 1.2 % 0-5 [facility] Erythrocyte distribution wid th ratioOrdered By: Adele Gusman on 04-06-2025 Erythrocyte distribution width (RBC) [Ratio] 13.7 % 11.6-14.6 [facility] Erythrocyte distribution wid th standard deviationOrdered By: macariocaliforniamaxim Gusman on 04-06-2025 Erythrocyte distribution width (RBC) [Ratio] 46.9 fl High 35.1-43.9 [facility] Glomerular filtration rate ( GFR) estimation/1.73 sq m using serum, plasma, or whole bOrdered By: [facility] on 04-06-2025 GFR/1.73 sq M.predicted among non-blacks MDRD (S/P/Bld) [Vol rate/Area] 74 mL/min/{1.73_m2} >60 [facility] Comment on above: mL/min/1.73m2 CKD-EP I Creatinine Equation (2020) Hematocrit Auto (Bld) [Volum e fraction]Ordered By: [facility] on 04-06-2025 Hematocrit (Bld) [Volume fraction] 33.6 % Low 37-47 [facility] Hemoglobin measurementOrdere d By: Adele Gusman on 04-06-2025 Hemoglobin (Bld) [Mass/Vol] 11.4 g/dL Low 12.0-15.0 [facility] Immature granulocytes/100 WB C Auto (Bld)Ordered By: Adele Gusman on 04-06-2025 Immature granulocytes/100 WBC (Bld) 1.000 % High 0.0-0.9 [facility] Comment on above: IG% - Immature Granu locytes (promyelocytes, myelocytes and metamyelocytes) > 1% indicates that a LEFT SHIFT is Present. MCV (mean corpuscular volume ) determinationOrdered By: Adele Gusman on 04-06-2025 MCV (RBC) [Entitic vol] 91.8 fL 81-99 [facility] Mean corpuscular hemoglobin (MCH) determinationOrdered By: Adele Gusman on 04-06-2025 MCH (RBC) [Entitic mass] 31.1 pg 27.0-32.0 [facility] Mean corpuscular hemoglobin concentration (MCHC) determinationOrdered By: Adele Gusman on 04-06-2025 MCHC (RBC) [Mass/Vol] 33.9 g/dL 32-36 [facility] Mean platelet volume determi nationOrdered By: Adele Gusman on 04-06-2025 Platelet mean volume (Bld) [Entitic vol] 10.9 fL 6.2-12.0 [facility] Monocyte percentageOrdered B y: Adele Gusman on 04-06-2025 Monocytes/100 WBC (Bld) 7.3 % 0-10 [facility] Neutrophil percentageOrdered By: Sharlenecaliforniamaxim Gusman on 04-06-2025 Neutrophils/100 WBC (Bld) 72.3 % High 47-70 [facility] Nucleated red blood cell per centageOrdered By: Adele Gusman on 04-06-2025 Nucleated RBC/100 WBC (Bld) [Ratio] 0 % 0-5 [facility] Platelet countOrdered By: Jennifer Gusman on 04-06-2025 Platelets (Bld) [#/Vol] 160 10*3/uL 150-450 [facility] Potassium measurement (mass/ volume)Ordered By: Adele Gusman on 04-06-2025 Potassium (Unsp spec) [Mass/Vol] 3.6 mmol/L 3.3-5.1 [facility] RBC Auto (Bld) [#/Vol]Ordere d By: Adele Gusman on 04-06-2025 RBC (Bld) [#/Vol] 3.66 10*6/uL Low 4.2-5.4 [facility] Serum creatinine measurement (mass/volume)Ordered By: Adele Gusman on 04-06-2025 Creatinine [Mass/Vol] 0.79 mg/dL 0.70-1.20 [facility] Serum glucose measurement (m ass/volume)Ordered By: Adele Gusman on 04-06-2025 Glucose [Mass/Vol] 90 mg/dL 70-99 [facility] Serum or plasma calcium thomas urement (mass/volume)Ordered By: Adele Gusman on 04-06-2025 Calcium [Mass/Vol] 8.9 mg/dL 7.6-11.0 [facility] Serum or plasma urea nitroge n measurement (mass/volume)Ordered By: Adele Gusman on 04-06-2025 Urea nitrogen [Mass/Vol] 15 mg/dL - [facility] Sodium levelOrdered By: Sharlene Gusman on 04-06-2025 Sodium [Moles/Vol] 142 mmol/L 133-145 [facility] White blood cell (WBC) count Ordered By: Adele Gusman on 04-06-2025 WBC (Bld) [#/Vol] 9.4 10*3/uL 4.4-11.0 [facility] Basic Metabolic Profile (BMP )on 04-02-2025 BUN Normal -19 [facility] Comment on above: Result Comment: Canc elled via OM: Order cancelled - Patient discharged Performed By: #### L 100.0100, L500.2500 #### [facility] [address] [place], [address] BUN/CRE Normal 10-20 [facility] Comment on above: Result Comment: Canc elled via OM: Order cancelled - Patient discharged Performed By: #### L 100.0100, L500.2500 #### [facility] [address] [place], [address] Calcium Normal 7.6-11.0 [facility] Comment on above: Result Comment: Canc elled via OM: Order cancelled - Patient discharged Performed By: #### L 100.0100, L500.2500 #### [facility] [address] [place], [address] CL Normal 98-108 [facility] Comment on above: Result Comment: Canc elled via OM: Order cancelled - Patient discharged Performed By: #### L 100.0100, L500.2500 #### [facility] [address] [place], [address] CO2 Normal 21.0-32.0 [facility] Comment on above: Result Comment: Canc elled via OM: Order cancelled - Patient discharged Performed By: #### L 100.0100, L500.2500 #### [facility] [address] [place], [address] CREAT,SERUM Normal 0.70-1.20 [facility] Comment on above: Result Comment: Canc elled via OM: Order cancelled - Patient discharged Performed By: #### L 100.0100, L500.2500 #### [facility] [address] [place], [address] eGFR Normal >60 [facility] Comment on above: Result Comment: Canc elled via OM: Order cancelled - Patient discharged Performed By: #### L 100.0100, L500.2500 #### [facility] [address] [place], [address] GAP Normal 5-15 [facility] Comment on above: Result Comment: Canc elled via OM: Order cancelled - Patient discharged Performed By: #### L 100.0100, L500.2500 #### [facility] [address] [place], [address] GLU Normal 70-99 [facility] Comment on above: Result Comment: Canc elled via OM: Order cancelled - Patient discharged Performed By: #### L 100.0100, L500.2500 #### [facility] [address] [place], [address] Potassium Normal 3.3-5.1 [facility] Comment on above: Result Comment: Canc elled via OM: Order cancelled - Patient discharged Performed By: #### L 100.0100, L500.2500 #### [facility] [address] [place], [address] Basic Metabolic Profile (BMP) Normal 133-145 [facility] Comment on above: Result Comment: Canc elled via OM: Order cancelled - Patient discharged Performed By: #### L 100.0100, L500.2500 #### [facility] [address] [place], [address] CBC W/Diff, Automatedon 05-1 Absolute Neut Normal 2.0-7.7 [facility] Comment on above: Result Comment: Canc elled via OM: Order cancelled - Patient discharged Performed By: #### L 100.0100, L500.2500 #### [facility] [address] [place], [address] HCT Normal 37-47 [facility] Comment on above: Result Comment: Canc elled via OM: Order cancelled - Patient discharged Performed By: #### L 100.0100, L500.2500 #### [facility] [address] [place], [address] HGB Normal 12.0-15.0 [facility] Comment on above: Result Comment: Canc elled via OM: Order cancelled - Patient discharged Performed By: #### L 100.0100, L500.2500 #### [facility] [address] [place], [address] MCH Normal 27.0-32.0 [facility] Comment on above: Result Comment: Canc elled via OM: Order cancelled - Patient discharged Performed By: #### L 100.0100, L500.2500 #### [facility] [address] [place], [address] MCHC Normal 32-36 [facility] Comment on above: Result Comment: Canc elled via OM: Order cancelled - Patient discharged Performed By: #### L 100.0100, L500.2500 #### [facility] [address] [place], [address] MCV Normal 81-99 [facility] Comment on above: Result Comment: Canc elled via OM: Order cancelled - Patient discharged Performed By: #### L 100.0100, L500.2500 #### [facility] [address] [place], [address] NEUT% Normal 47-70 [facility] Comment on above: Result Comment: Canc elled via OM: Order cancelled - Patient discharged Performed By: #### L 100.0100, L500.2500 #### [facility] [address] [place], [address] PLT Normal 150-450 [facility] Comment on above: Result Comment: Canc elled via OM: Order cancelled - Patient discharged Performed By: #### L 100.0100, L500.2500 #### [facility] [address] [place], [address] RBC Normal 4.2-5.4 [facility] Comment on above: Result Comment: Canc elled via OM: Order cancelled - Patient discharged Performed By: #### L 100.0100, L500.2500 #### [facility] [address] [place], [address] RDW CV Normal 11.6-14.6 [facility] Comment on above: Result Comment: Canc elled via OM: Order cancelled - Patient discharged Performed By: #### L 100.0100, L500.2500 #### [facility] [address] [place], [address] RDW SD Normal 35.1-43.9 [facility] Comment on above: Result Comment: Canc elled via OM: Order cancelled - Patient discharged Performed By: #### L 100.0100, L500.2500 #### [facility] [address] [place], [address] WBC Normal 4.4-11.0 [facility] Comment on above: Result Comment: Canc elled via OM: Order cancelled - Patient discharged Performed By: #### L 100.0100, L500.2500 #### [facility] [address] [place], [address] Absolute lymphocyte countOrd ered By: Daya Morgan on 03-30-2025 Lymphocytes Auto (Unsp spec) [#/Vol] 1.33 10*3/uL 0.83-4.51 [facility] Absolute neutrophil countOrd ered By: Daya Morgan on 03-30-2025 Neutrophils (Bld) [#/Vol] 6.3 10*3/uL 2.0-7.7 [facility] Anion gap in Serum or Plasma Ordered By: Daya Morgan on 03-30-2025 Anion gap [Moles/Vol] 9 mmol/L 5-15 [facility] Automated lymphocyte count a s percentage of total leukocytesOrdered By: Daya Morgan on 03-30-2025 Lymphocytes/100 WBC Auto (Unsp spec) 15.4 % Low 19-41 [facility] BUN/creatinine ratioOrdered By: Daya Morgan on 03-30-2025 Urea nitrogen/Creatinine [Mass ratio] 14.8 mg/mg 10-20 [facility] Basophil percentageOrdered B y: Daya Morgan on 03-30-2025 Basophils/100 WBC (Bld) 0.7 % 0-1 [facility] Carbon dioxide, total [Moles /volume] in Central venous bloodOrdered By: Daya Morgan on 03-30-2025 CO2 [Moles/Vol] 28.0 mmol/L 21.0-32.0 [facility] Chloride assayOrdered By: Will Morgan on 03-30-2025 Chloride [Moles/Vol] 105 mmol/L 98-[address] [facility] Eosinophil percentageOrdered By: Daya Morgan on 03-30-2025 Eosinophils/100 WBC (Bld) 1.4 % 0-5 [facility] Erythrocyte distribution wid th ratioOrdered By: Daya Morgan on 03-30-2025 Erythrocyte distribution width (RBC) [Ratio] 14.2 % 11.6-14.6 [facility] Erythrocyte distribution wid th standard deviationOrdered By: Daya Morgan on 03-30-2025 Erythrocyte distribution width (RBC) [Ratio] 48.0 fl High 35.1-43.9 [facility] Glomerular filtration rate ( GFR) estimation/1.73 sq m using serum, plasma, or whole bOrdered By: Daya Morgan on 03-30-2025 GFR/1.73 sq M.predicted among non-blacks MDRD (S/P/Bld) [Vol rate/Area] 70 mL/min/{1.73_m2} >60 [facility] Comment on above: mL/min/1.73m2 CKD-EP I Creatinine Equation (2020) Hematocrit Auto (Bld) [Volum e fraction]Ordered By: Daya Morgan on 03-30-2025 Hematocrit (Bld) [Volume fraction] 34.1 % Low 37-47 [facility] Hemoglobin measurementOrdere d By: Daya Morgan on 03-30-2025 Hemoglobin (Bld) [Mass/Vol] 11.3 g/dL Low 12.0-15.0 [facility] Immature granulocytes/100 WB C Auto (Bld)Ordered By: Daya Morgan on 03-30-2025 Immature granulocytes/100 WBC (Bld) 0.900 % 0.0-0.9 [facility] Comment on above: IG% - Immature Granu locytes (promyelocytes, myelocytes and metamyelocytes) > 1% indicates that a LEFT SHIFT is Present. MCV (mean corpuscular volume ) determinationOrdered By: Daya Morgan on 03-30-2025 MCV (RBC) [Entitic vol] 93.7 fL 81-99 [facility] Mean corpuscular hemoglobin (MCH) determinationOrdered By: Daya Morgan on 03-30-2025 MCH (RBC) [Entitic mass] 31.0 pg 27.0-32.0 [facility] Mean corpuscular hemoglobin concentration (MCHC) determinationOrdered By: Daya Morgan on 03-30-2025 MCHC (RBC) [Mass/Vol] 33.1 g/dL 32-36 [facility] Mean platelet volume determi nationOrdered By: Daya Morgan on 03-30-2025 Platelet mean volume (Bld) [Entitic vol] 10.8 fL 6.2-12.0 [facility] Monocyte percentageOrdered B y: Daya Morgan on 03-30-2025 Monocytes/100 WBC (Bld) 8.2 % 0-10 [facility] Neutrophil percentageOrdered By: Daya Morgan on 03-30-2025 Neutrophils/100 WBC (Bld) 73.4 % High 47-70 [facility] Nucleated red blood cell per centageOrdered By: Daya Morgan on 03-30-2025 Nucleated RBC/100 WBC (Bld) [Ratio] 0 % 0-5 [facility] Platelet countOrdered By: Will Morgan on 03-30-2025 Platelets (Bld) [#/Vol] 160 10*3/uL 150-450 [facility] Potassium measurement (mass/ volume)Ordered By: Daya Morgan on 03-30-2025 Potassium (Unsp spec) [Mass/Vol] 3.6 mmol/L 3.3-5.1 [facility] RBC Auto (Bld) [#/Vol]Ordere d By: Daya Morgan on 03-30-2025 RBC (Bld) [#/Vol] 3.64 10*6/uL Low 4.2-5.4 [facility] Serum creatinine measurement (mass/volume)Ordered By: Daya Morgan on 03-30-2025 Creatinine [Mass/Vol] 0.83 mg/dL 0.70-1.20 [facility] Serum glucose measurement (m ass/volume)Ordered By: Daya Morgan on 03-30-2025 Glucose [Mass/Vol] 91 mg/dL 70-99 [facility] Serum or plasma calcium thomas urement (mass/volume)Ordered By: Daya Morgan on 03-30-2025 Calcium [Mass/Vol] 9.0 mg/dL 7.6-11.0 [facility] Serum or plasma urea nitroge n measurement (mass/volume)Ordered By: Daya Morgan on 03-30-2025 Urea nitrogen [Mass/Vol] 12 mg/dL 4-19 [facility] Sodium levelOrdered By: Katarina Morgan on 03-30-2025 Sodium [Moles/Vol] 141 mmol/L 133-145 [facility] White blood cell (WBC) count Ordered By: Daya Morgan on 03-30-2025 WBC (Bld) [#/Vol] 8.6 10*3/uL 4.4-11.0 [facility] Basic Metabolic Profile (BMP )on 03-26-2025 BUN Normal 4-19 [facility] Comment on above: Result Comment: Canc elled via OM: Order cancelled - Patient discharged Performed By: #### L 100.0600 #### [facility] [address] [place], [address] BUN/CRE Normal 10-20 [facility] Comment on above: Result Comment: Canc elled via OM: Order cancelled - Patient discharged Performed By: #### L 100.0600 #### [facility] [address] [place], [address] Calcium Normal 7.6-11.0 [facility] Comment on above: Result Comment: Canc elled via OM: Order cancelled - Patient discharged Performed By: #### L 100.0600 #### [facility] [address] [place], [address] CL Normal 98-108 [facility] Comment on above: Result Comment: Canc elled via OM: Order cancelled - Patient discharged Performed By: #### L 100.0600 #### [facility] [address] [place], [address] CO2 Normal 21.0-32.0 [facility] Comment on above: Result Comment: Canc elled via OM: Order cancelled - Patient discharged Performed By: #### L 100.0600 #### [facility] [address] [place], [address] CREAT,SERUM Normal 0.70-1.20 [facility] Comment on above: Result Comment: Canc elled via OM: Order cancelled - Patient discharged Performed By: #### L 100.0600 #### [facility] [address] [place], [address] eGFR Normal >60 [facility] Comment on above: Result Comment: Canc elled via OM: Order cancelled - Patient discharged Performed By: #### L 100.0600 #### [facility] [address] [place], [address] GAP Normal 5-15 [facility] Comment on above: Result Comment: Canc elled via OM: Order cancelled - Patient discharged Performed By: #### L 100.0600 #### [facility] [address] [place], [address] GLU Normal 70-99 [facility] Comment on above: Result Comment: Canc elled via OM: Order cancelled - Patient discharged Performed By: #### L 100.0600 #### [facility] [address] [place], [address] Potassium Normal 3.3-5.1 [facility] Comment on above: Result Comment: Canc elled via OM: Order cancelled - Patient discharged Performed By: #### L 100.0600 #### [facility] [address] [place], [address] Basic Metabolic Profile (BMP) Normal 133-145 [facility] Comment on above: Result Comment: Canc elled via OM: Order cancelled - Patient discharged Performed By: #### L 100.0600 #### [facility] [address] [place], [address] CBC W/Diff, Automatedon 05-0 8-2024 Absolute Neut Normal 2.0-7.7 [facility] Comment on above: Result Comment: Canc elled via OM: Order cancelled - Patient discharged Performed By: #### L 100.0600 #### [facility] [address] [place], [address] HCT Normal 37-47 [facility] Comment on above: Result Comment: Canc elled via OM: Order cancelled - Patient discharged Performed By: #### L 100.0600 #### [facility] [facility] [address] [place], [address] HGB Normal 12.0-15.0 [facility] Comment on above: Result Comment: Canc elled via OM: Order cancelled - Patient discharged Performed By: #### L 100.0600 #### [facility] [address] [place], [address] MCH Normal 27.0-32.0 [facility] Comment on above: Result Comment: Canc elled via OM: Order cancelled - Patient discharged Performed By: #### L 100.0600 #### [facility] [address] [place], [address] MCHC Normal 32-36 [facility] Comment on above: Result Comment: Canc elled via OM: Order cancelled - Patient discharged Performed By: #### L 100.0600 #### [facility] [address] [place], [address] MCV Normal 81-99 [facility] Comment on above: Result Comment: Canc elled via OM: Order cancelled - Patient discharged Performed By: #### L 100.0600 #### [facility] [address] [place], [address] NEUT% Normal 47-70 [facility] Comment on above: Result Comment: Canc elled via OM: Order cancelled - Patient discharged Performed By: #### L 100.0600 #### [facility] [address] [place], [address] PLT Normal 150-450 [facility] Comment on above: Result Comment: Canc elled via OM: Order cancelled - Patient discharged Performed By: #### L 100.0600 #### [facility] [address] [place], [address] RBC Normal 4.2-5.4 [facility] Comment on above: Result Comment: Canc elled via OM: Order cancelled - Patient discharged Performed By: #### L 100.0600 #### [facility] [address] [place], [address] RDW CV Normal 11.6-14.6 [facility] Comment on above: Result Comment: Canc elled via OM: Order cancelled - Patient discharged Performed By: #### L 100.0600 #### [facility] [address] [place], [address] RDW SD Normal 35.1-43.9 [facility] Comment on above: Result Comment: Canc elled via OM: Order cancelled - Patient discharged Performed By: #### L 100.0600 #### [facility] [address] [place], [address] WBC Normal 4.4-11.0 [facility] Comment on above: Result Comment: Canc elled via OM: Order cancelled - Patient discharged Performed By: #### L 100.0600 #### [facility] [address] [place], [address] Absolute lymphocyte countOrd ered By: Adele Gusman on 03-23-2025 Lymphocytes Auto (Unsp spec) [#/Vol] 1.22 10*3/uL 0.83-4.51 [facility] Absolute neutrophil countOrd ered By: Adele Gusman on 03-23-2025 Neutrophils (Bld) [#/Vol] 6.8 10*3/uL 2.0-7.7 [facility] Anion gap in Serum or Plasma Ordered By: Adele Gusman on 03-23-2025 Anion gap [Moles/Vol] 10 mmol/L 5-15 [facility] Automated lymphocyte count a s percentage of total leukocytesOrdered By: Adele Gusman on 03-23-2025 Lymphocytes/100 WBC Auto (Unsp spec) 13.5 % Low 19-41 [facility] BUN/creatinine ratioOrdered By: Adele Gusman on 03-23-2025 Urea nitrogen/Creatinine [Mass ratio] 21.5 mg/mg High 10-20 [facility] Basophil percentageOrdered B y: Adele Gusman on 03-23-2025 Basophils/100 WBC (Bld) 0.4 % 0-1 [facility] Bilirubin, totalOrdered By: Adele Gusman on 03-23-2025 Bilirubin [Mass/Vol] 1.28 mg/dL 0.00-1.[address] [facility] Carbon dioxide, total [Moles /volume] in Central venous bloodOrdered By: Adele Gumsan on 03-23-2025 CO2 [Moles/Vol] 24.4 mmol/L 21.0-32.0 [facility] Chloride assayOrdered By: Jennifer Gusman on 03-23-2025 Chloride [Moles/Vol] 104 mmol/L 98-[address] [facility] Eosinophil percentageOrdered By: Adele Gusman on 03-23-2025 Eosinophils/100 WBC (Bld) 1.9 % 0-5 [facility] Erythrocyte distribution wid th ratioOrdered By: Adele Gusman on 03-23-2025 Erythrocyte distribution width (RBC) [Ratio] 15.0 % High 11.6-14.6 [facility] Erythrocyte distribution wid th standard deviationOrdered By: Adele Gusman on 03-23-2025 Erythrocyte distribution width (RBC) [Ratio] 50.8 fl High 35.1-43.9 [facility] Glomerular filtration rate ( GFR) estimation/1.73 sq m using serum, plasma, or whole bOrdered By: Adele Gusman on 03-23-2025 GFR/1.73 sq M.predicted among non-blacks MDRD (S/P/Bld) [Vol rate/Area] 75 mL/min/{1.73_m2} >60 [facility] Comment on above: mL/min/1.73m2 CKD-EP I Creatinine Equation (2020) Hematocrit Auto (Bld) [Volum e fraction]Ordered By: Adele Gusman on 03-23-2025 Hematocrit (Bld) [Volume fraction] 34.2 % Low 37-47 [facility] Hemoglobin measurementOrdere d By: Adlee Gusman on 03-23-2025 Hemoglobin (Bld) [Mass/Vol] 11.6 g/dL Low 12.0-15.0 [facility] Immature granulocytes/100 WB C Auto (Bld)Ordered By: Adele Gusman on 03-23-2025 Immature granulocytes/100 WBC (Bld) 1.100 % High 0.0-0.9 [facility] Comment on above: IG% - Immature Granu locytes (promyelocytes, myelocytes and metamyelocytes) > 1% indicates that a LEFT SHIFT is Present. Laboratory - Chemistry and C hemistry - challengeOrdered By: Adele Gusman on 03-23-2025 AST [Catalytic activity/Vol] 16 U/L <32 [facility] MCV (mean corpuscular volume ) determinationOrdered By: Adele Gusman on 03-23-2025 MCV (RBC) [Entitic vol] 91.9 fL 81-99 [facility] Mean corpuscular hemoglobin (MCH) determinationOrdered By: [facility] on 03-23-2025 MCH (RBC) [Entitic mass] 31.2 pg 27.0-32.0 [facility] Mean corpuscular hemoglobin concentration (MCHC) determinationOrdered By: Adele Gusman on 03-23-2025 MCHC (RBC) [Mass/Vol] 33.9 g/dL 32-36 [facility] Mean platelet volume determi nationOrdered By: Adele Gusman on 03-23-2025 Platelet mean volume (Bld) [Entitic vol] 10.1 fL 6.2-12.0 [facility] Monocyte percentageOrdered B y: Adele Gusman on 03-23-2025 Monocytes/100 WBC (Bld) 7.8 % 0-10 [facility] Neutrophil percentageOrdered By: Adele Gusman on 03-23-2025 Neutrophils/100 WBC (Bld) 75.3 % High 47-70 [facility] Nucleated red blood cell per centageOrdered By: Adele Gusman on 03-23-2025 Nucleated RBC/100 WBC (Bld) [Ratio] 0 % 0-5 [facility] Platelet countOrdered By: Jennifer Gusman on 03-23-2025 Platelets (Bld) [#/Vol] 241 10*3/uL 150-450 [facility] Potassium measurement (mass/ volume)Ordered By: Adele Gusman on 03-23-2025 Potassium (Unsp spec) [Mass/Vol] 3.5 mmol/L 3.3-5.1 [facility] RBC Auto (Bld) [#/Vol]Ordere d By: Adele Gusman on 03-23-2025 RBC (Bld) [#/Vol] 3.72 10*6/uL Low 4.2-5.4 [facility] Serum creatinine measurement (mass/volume)Ordered By: Adele Gusman on 03-23-2025 Creatinine [Mass/Vol] 0.78 mg/dL 0.70-1.20 [facility] Serum globulin measurementOr dered By: Adele Gusman on 03-23-2025 Globulin (S) [Mass/Vol] 2.3 g/dL 2.2-4.2 [facility] Serum glucose measurement (m ass/volume)Ordered By: Adele Gusman on 03-23-2025 Glucose [Mass/Vol] 95 mg/dL 70-99 [facility] Serum or plasma alanine tillman otransferase (ALT) measurementOrdered By: Adele Gusman on 03-23-2025 ALT [Catalytic activity/Vol] 6 U/L <35 [facility] Serum or plasma albumin thomas urement (mass/volume)Ordered By: Adele Gusman on 03-23-2025 Albumin [Mass/Vol] 3.5 g/dL 3.4-4.8 [facility] Serum or plasma albumin/glob ulin mass ratioOrdered By: Adele Gusman on 03-23-2025 Albumin/Globulin [Mass ratio] 1.5 {ratio} 0.9-2.4 [facility] Serum or plasma alkaline mariah sphatase measurementOrdered By: Adele Gusman on 03-23-2025 ALP [Catalytic activity/Vol] 135 U/L High 35-104 [facility] Serum or plasma calcium thomas urement (mass/volume)Ordered By: Adele Gusman on 03-23-2025 Calcium [Mass/Vol] 9.0 mg/dL 7.6-11.0 [facility] Serum or plasma urea nitroge n measurement (mass/volume)Ordered By: Adele Gusman on 03-23-2025 Urea nitrogen [Mass/Vol] 17 mg/dL 4-19 [facility] Sodium levelOrdered By: Sharlene bullard Naseem on 03-23-2025 Sodium [Moles/Vol] 139 mmol/L 133-145 [facility] Total proteinOrdered By: Amadou noriega Naseem on 03-23-2025 Protein [Mass/Vol] 5.8 g/dL Low 5.9-8.4 [facility] White blood cell (WBC) count Ordered By: Adele Gusman on 03-23-2025 WBC (Bld) [#/Vol] 9.1 10*3/uL 4.4-11.0 [facility] Absolute lymphocyte countOrd ered By: Garfield Yo on 03-19-2025 Lymphocytes Auto (Unsp spec) [#/Vol] 1.65 10*3/uL 0.83-4.51 [facility] Absolute neutrophil countOrd ered By: Garfield Yo on 03-19-2025 Neutrophils (Bld) [#/Vol] 5.7 10*3/uL 2.0-7.7 [facility] Anion gap in Serum or Plasma Ordered By: Garfield Yo on 03-19-2025 Anion gap [Moles/Vol] 7 mmol/L 5-15 [facility] Automated lymphocyte count a s percentage of total leukocytesOrdered By: Garfield Yo on 03-19-2025 Lymphocytes/100 WBC Auto (Unsp spec) 19.7 % 19-41 [facility] BUN/creatinine ratioOrdered By: Garfield Yo on 03-19-2025 Urea nitrogen/Creatinine [Mass ratio] 17.9 mg/mg 10-20 [facility] Basic Metabolic Profile (BMP )on 03-19-2025 BUN/CRE 17.9 RATIO Normal 10-20 [facility] Comment on above: Performed By: #### L 500.2500, L100.0100 #### [facility] [address] [place], [address] Calcium [Mass/Vol] 8.8 mg/dL Normal 7.6-11.0 [facility] Comment on above: Performed By: #### L 500.2500, L100.0100 #### [facility] [address] [place], [address] Chloride [Moles/Vol] 107 mmol/L Normal 98-[address] [facility] Comment on above: Performed By: #### L 500.2500, L100.0100 #### [facility] [address] [place], [address] CO2 [Moles/Vol] 26.6 mmol/L Normal 21.0-32.0 [facility] Comment on above: Performed By: #### L 500.2500, L100.0100 #### [facility] [address] [place], [address] Creatinine [Mass/Vol] 1.02 mg/dL Normal 0.70-1.20 [facility] Comment on above: Performed By: #### L 500.2500, L100.0100 #### [facility] [address] [place], [address] ECRCL 32.95 ml/min Low 50-250 [facility] Comment on above: Performed By: #### L 500.2500, L100.0100 #### [facility] [address] [place], [address] GAP 7 Normal 5-15 [facility] Comment on above: Performed By: #### L 500.2500, L100.0100 #### [facility] [address] [place], [address] GFR/1.73 sq M.predicted among non-blacks MDRD (S/P/Bld) [Vol rate/Area] 54 mL/min/{1.73_m2} Low >60 [facility] Comment on above: Result Comment: mL/m in/1.73m2 CKD-EPI Creatinine Equation (2020) Performed By: #### L 500.2500, L100.0100 #### [facility] [address] [place], [address] Glucose [Mass/Vol] 92 mg/dL Normal 70-99 [facility] Comment on above: Performed By: #### L 500.2500, L100.0100 #### [facility] [address] [place], [address] Potassium [Moles/Vol] 4.1 mmol/L Normal 3.3-5.1 [facility] Comment on above: Result Comment: Hemo lysis present, Results??could be affected. ?? Performed By: #### L 500.2500, L100.0100 #### [facility] [address] [place], [address] Sodium [Moles/Vol] 141 mmol/L Normal 133-145 [facility] Comment on above: Performed By: #### L 500.2500, L100.0100 #### [facility] [address] [place], [address] Urea nitrogen [Mass/Vol] 18 mg/dL Normal 4-19 [facility] Comment on above: Performed By: #### L 500.2500, L100.0100 #### [facility] [address] [place], [address] Basophil percentageOrdered B y: Garfield Yo on 03-19-2025 Basophils/100 WBC (Bld) 0.6 % 0-1 [facility] CBC W/Diff, Automatedon 05 Absolute Lymph 1.65 X10 3/uL Normal 0.83-4.51 [facility] Comment on above: Performed By: #### L 100.0100, L500.2500 #### [facility] [address] [place], [address] Absolute Neut 5.7 X10 3/uL Normal 2.0-7.7 [facility] Comment on above: Performed By: #### L 100.0100, L500.2500 #### [facility] [address] [place], [address] Basophils/100 WBC (Bld) 0.6 % Normal 0-1 [facility] Comment on above: Performed By: #### L 100.0100, L500.2500 #### [facility] [address] [place], [address] Eosinophils/100 WBC (Bld) 2.1 % Normal 0-5 [facility] Comment on above: Performed By: #### L 100.0100, L500.2500 #### [facility] [address] [place], [address] Erythrocyte distribution width (RBC) [Ratio] 15.7 % High 11.6-14.6 [facility] Comment on above: Performed By: #### L 100.0100, L500.2500 #### [facility] [address] [place], [address] Hematocrit (Bld) [Volume fraction] 30.9 % Low 37-47 [facility] Comment on above: Performed By: #### L 100.0100, L500.2500 #### [facility] [address] [place], [address] Hemoglobin (Bld) [Mass/Vol] 10.4 g/dL Low 12.0-15.0 [facility] Comment on above: Performed By: #### L 100.0100, L500.2500 #### [facility] [address] [place], [address] IG% 1.600 High 0.0-0.9 [facility] Comment on above: Result Comment: IG% - Immature Granulocytes (promyelocytes, myelocytes and metamyelocytes) > 1% indicates that a LEFT SHIFT is Present. Performed By: #### L 100.0100, L500.2500 #### [facility] [address] [place], [address] Lymphocytes/100 WBC (Bld) 19.7 % Normal 19-41 [facility] Comment on above: Performed By: #### L 100.0100, L500.2500 #### [facility] [address] [place], [address] MCH (RBC) [Entitic mass] 31.3 pg Normal 27.0-32.0 [facility] Comment on above: Performed By: #### L 100.0100, L500.2500 #### [facility] [address] [place], [address] MCHC (RBC) [Mass/Vol] 33.7 g/dL Normal 32-36 [facility] Comment on above: Performed By: #### L 100.0100, L500.2500 #### [facility] [address] [place], [address] MCV (RBC) [Entitic vol] 93.1 fL Normal 81-99 [facility] Comment on above: Performed By: #### L 100.0100, L500.2500 #### [facility] [address] [place], [address] Monocytes/100 WBC (Bld) 8.5 % Normal 0-10 [facility] Comment on above: Performed By: #### L 100.0100, L500.2500 #### [facility] [address] [place], [address] Neutrophils/100 WBC (Bld) 67.5 % Normal 47-70 [facility] Comment on above: Performed By: #### L 100.0100, L500.2500 #### [facility] [address] [place], [address] Nucleated RBC (Bld) [#/Vol] 0 10*3/uL Normal 0-5 [facility] Comment on above: Performed By: #### L 100.0100, L500.2500 #### [facility] [address] [place], [address] Platelet mean volume (Bld) [Entitic vol] 9.1 fL Normal 6.2-12.0 [facility] Comment on above: Performed By: #### L 100.0100, L500.2500 #### [facility] [address] [place], [address] Platelets (Bld) [#/Vol] 262 10*3/uL Normal 150-450 [facility] Comment on above: Performed By: #### L 100.0100, L500.2500 #### [facility] [address] [place], [address] RBC (Bld) [#/Vol] 3.32 10*6/uL Low 4.2-5.4 [facility] Comment on above: Performed By: #### L 100.0100, L500.2500 #### [facility] [address] [place], [address] RDW SD 53.2 fl High 35.1-43.9 [facility] Comment on above: Performed By: #### L 100.0100, L500.2500 #### [facility] [address] [place], [address] WBC (Bld) [#/Vol] 8.4 10*3/uL Normal 4.4-11.0 [facility] Comment on above: Performed By: #### L 100.0100, L500.2500 #### [facility] [address] [place], [address] [facility] 03-19-2025 CNPN Telephone (ANGELAT) MICHAELA BRANDT ([id number]) 1940 F Date Time Provider Department 03/19/25 KENTRELL MONTGOMERY During your visit today, we recorded the following information about you: Kentrell Montgomery, JUVE 03/19/2025 3:34 PM Signed Thomas spoke with patient daughter Maribeth. Maribeth notes that patient is currently at [facility] right now. Transitioned there today. Maribeth notes that she needs to cancel patient appt with Dr. Santiago tomorrow. Thomas notes that she will send message to Dr. Santiago regarding this need. Maribeth also noted that she is going to send My Chart message as well in regards to cancelling appt. Maribeth notes that the hospital Sw had encouraged patient to go to [facility] for further care after being in [facility]. Daughter is trying to get with admissions at [facility] in regards to them saying that she is going there for 30 days and being placed in LTC and not Rehab. Daughter also notes that she has an appt next week with [facility] for financial planning. Maribeth also noted that she would like patient to see Dr. Santiago if and when she leaves [place]. While in [place], patient will be followed by their provider. Thomas did encourage patient daughter to also reach out to [facility] and [facility] for further support guidance regarding LTC planning. Thomas will forward note to Dr. Santiago and her office in regards to appt cancellation need for tomorrow. Mckenzie Lombardo LPN 03/19/2025 4:00 PM Signed Canceled appointment for tomorrow per patients daughter request. Mckenzie Lombardo LPN March 19, 2025 4:00 PM Dillan Santiago MD 03/19/2025 4:55 PM Signed Thanks and noted Dillan Patel MD, Erin, CHIEF [employer]AF[employer]Y OFFICER 03/20/2025 3:12 PM Signed Maribeth reached out to Sw in regards to question about patient seeing [facility] provider and liking to keep Dr. Santiago. Maribeth notes that she feels like patient plan at this time will be to stay at [facility] for 30 days. Maribeth and this Sw discussed speaking with [facility] admissions and Sw in regards to consent to sign for them to share info with Dr. Santiago. Maribeth notes that she is going to try and speak with admissions today as she wants to see what happened with patient transitioning to rehab services instead of LTC. Maribeth notes that she still has appt next week with [facility] as well. Maribeth notes that she is also going to check with SW at [facility] in regards to counselor option for patient. This Sw is not aware of counseling service that provides mental health services at [place]. Daughter notes that she will ask about mental health treatment options there at [place]. Daughter is concerned about patient being depressed and wanting to obtain support for patient while in LTC. Maribeth has this Sw direct number for any further needs. Maribeth states that she also plans on reaching out to [facility], today as well for questions regarding other LTC if patient should need to look at living in a LTC indefinitely. Dillan Santiago MD 03/20/2025 5:20 PM Signed Yes, I will follow Michaela and be in touch with what happens to her. Regards, Dillan Santiago MD Allergies As of Date: 03/19/2025 (No Known Allergies) Date Reviewed: 02/19/2025 Reviewed by: Carolina Hastings LPN - Fully Assessed Prescriptions as of 03/20/2025 - clonazePAM (KLONOPIN) 0.5 mg tablet Take 1 tablet by mouth three times a day as needed for anxiety for up to 30 days. - ascorbic acid (VITAMIN C ORAL) Take by mouth once daily. - donepezil (ARICEPT) 10 mg tablet Take 1 tablet by mouth daily after breakfast. - clonazePAM (KLONOPIN) 0.5 mg tablet Take 1 tablet by mouth three times a day as needed for anxiety for up to 30 days. Patient should start on January 31, 2025. - Catheter (SELF-CATHETER, FEMALE) 14 Fr misc Self catheterizes four times daily - levothyroxine (EUTHYROX) 50 mcg tablet Take 1 tablet by mouth once daily. - escitalopram oxalate (LEXAPRO) 20 mg tablet Take 1 tablet by mouth once daily. - traZODone (DESYREL) 50 mg tablet Take 1 tablet by mouth daily at bedtime. Problem List As Of Date: 03/19/2025 (None) Encounter Status:Closed by GABI MCELROY on 03/19/25 [place] Carbon dioxide, total [Moles /volume] in Central venous bloodOrdered By: Garfield Yo on 03-19-2025 CO2 [Moles/Vol] 26.6 mmol/L 21.0-32.0 [facility] Chloride assayOrdered By: Kristopher Yo on 03-19-2025 Chloride [Moles/Vol] 107 mmol/L 98-[address] [facility] Eosinophil percentageOrdered By: Garfield Yo on 03-19-2025 Eosinophils/100 WBC (Bld) 2.1 % 0-5 [facility] Erythrocyte distribution wid th ratioOrdered By: Garfield Yo on 03-19-2025 Erythrocyte distribution width (RBC) [Ratio] 15.7 % High 11.6-14.6 [facility] Erythrocyte distribution wid th standard deviationOrdered By: Garfield Yo on 03-19-2025 Erythrocyte distribution width (RBC) [Ratio] 53.2 fl High 35.1-43.9 [facility] Glomerular filtration rate ( GFR) estimation/1.73 sq m using serum, plasma, or whole bOrdered By: Garfield Yo on 03-19-2025 GFR/1.73 sq M.predicted among non-blacks MDRD (S/P/Bld) [Vol rate/Area] 54 mL/min/{1.73_m2} Low >60 [facility] Comment on above: mL/min/1.73m2 CKD-EP I Creatinine Equation (2020) Hematocrit Auto (Bld) [Volum e fraction]Ordered By: Garfield Yo on 03-19-2025 Hematocrit (Bld) [Volume fraction] 30.9 % Low 37-47 [facility] Hemoglobin measurementOrdere d By: Garfield Yo on 03-19-2025 Hemoglobin (Bld) [Mass/Vol] 10.4 g/dL Low 12.0-15.0 [facility] Immature granulocytes/100 WB C Auto (Bld)Ordered By: Garfield Yo on 03-19-2025 Immature granulocytes/100 WBC (Bld) 1.600 % High 0.0-0.9 [facility] Comment on above: IG% - Immature Granu locytes (promyelocytes, myelocytes and metamyelocytes) > 1% indicates that a LEFT SHIFT is Present. MCV (mean corpuscular volume ) determinationOrdered By: Garfield Yo on 03-19-2025 MCV (RBC) [Entitic vol] 93.1 fL 81-99 [facility] Mean corpuscular hemoglobin (MCH) determinationOrdered By: Garfield Yo on 03-19-2025 MCH (RBC) [Entitic mass] 31.3 pg 27.0-32.0 [facility] Mean corpuscular hemoglobin concentration (MCHC) determinationOrdered By: Garfield Yo on 03-19-2025 MCHC (RBC) [Mass/Vol] 33.7 g/dL 32-36 [facility] Mean platelet volume determi nationOrdered By: Garfield Yo on 03-19-2025 Platelet mean volume (Bld) [Entitic vol] 9.1 fL 6.2-12.0 [facility] Monocyte percentageOrdered B y: Garfield Yo on 03-19-2025 Monocytes/100 WBC (Bld) 8.5 % 0-10 [facility] Neutrophil percentageOrdered By: Garfield Yo on 03-19-2025 Neutrophils/100 WBC (Bld) 67.5 % 47-70 [facility] Nucleated red blood cell per centageOrdered By: Garfield Yo on 03-19-2025 Nucleated RBC/100 WBC (Bld) [Ratio] 0 % 0-5 [facility] Platelet countOrdered By: Kristopher Yo on 03-19-2025 Platelets (Bld) [#/Vol] 262 10*3/uL 150-450 [facility] Potassium measurement (mass/ volume)Ordered By: Garfield Yo on 03-19-2025 Potassium (Unsp spec) [Mass/Vol] 4.1 mmol/L 3.3-5.1 [facility] Comment on above: Hemolysis present, R esults could be affected. RBC Auto (Bld) [#/Vol]Ordere d By: Garfield Yo on 03-19-2025 RBC (Bld) [#/Vol] 3.32 10*6/uL Low 4.2-5.4 [facility] Serum creatinine measurement (mass/volume)Ordered By: Garfield Yo on 03-19-2025 Creatinine [Mass/Vol] 1.02 mg/dL 0.70-1.20 [facility] Serum glucose measurement (m ass/volume)Ordered By: Garfield Yo on 03-19-2025 Glucose [Mass/Vol] 92 mg/dL 70-99 [facility] Serum or plasma calcium thomas urement (mass/volume)Ordered By: Garfield Yo on 03-19-2025 Calcium [Mass/Vol] 8.8 mg/dL 7.6-11.0 [facility] Serum or plasma urea nitroge n measurement (mass/volume)Ordered By: Garfield Yo on 03-19-2025 Urea nitrogen [Mass/Vol] 18 mg/dL 4-19 [facility] Sodium levelOrdered By: Garfield Yo on 03-19-2025 Sodium [Moles/Vol] 141 mmol/L 133-145 [facility] White blood cell (WBC) count Ordered By: Garfield Yo on 03-19-2025 WBC (Bld) [#/Vol] 8.4 10*3/uL 4.4-11.0 [facility] Basic Metabolic Profile (BMP )on 03-12-2025 BUN/CRE 19.2 RATIO Normal 10-20 [facility] Comment on above: Performed By: #### L 500.2500, L100.0100 #### [facility] [address] [place], [place], [address] Calcium [Mass/Vol] 8.6 mg/dL Normal 7.6-11.0 [facility] Comment on above: Performed By: #### L 500.2500, L100.0100 #### [facility] [address] [place], [address] Chloride [Moles/Vol] 105 mmol/L Normal 98-[address] [facility] Comment on above: Performed By: #### L 500.2500, L100.0100 #### [facility] [address] [place], [address] CO2 [Moles/Vol] 26.6 mmol/L Normal 21.0-32.0 [facility] Comment on above: Performed By: #### L 500.2500, L100.0100 #### [facility] [address] [place], [address] Creatinine [Mass/Vol] 0.80 mg/dL Normal 0.70-1.20 [facility] Comment on above: Performed By: #### L 500.2500, L100.0100 #### [facility] [address] [place], [address] ECRCL 42.05 ml/min Low 50-250 [facility] Comment on above: Performed By: #### L 500.2500, L100.0100 #### [facility] [address] [place], [address] GAP 9 Normal 5-15 [facility] Comment on above: Performed By: #### L 500.2500, L100.0100 #### [facility] [address] [place], [address] GFR/1.73 sq M.predicted among non-blacks MDRD (S/P/Bld) [Vol rate/Area] 73 mL/min/{1.73_m2} Normal >60 [facility] Comment on above: Result Comment: mL/m in/1.73m2 CKD-EPI Creatinine Equation (2020) Performed By: #### L 500.2500, L100.0100 #### [facility] [address] [place], [address] Glucose [Mass/Vol] 90 mg/dL Normal 70-99 [facility] Comment on above: Performed By: #### L 500.2500, L100.0100 #### [facility] [address] [place], [address] Potassium [Moles/Vol] 3.9 mmol/L Normal 3.3-5.1 [facility] Comment on above: Result Comment: Hemo lysis present, Results??could be affected. ?? Performed By: #### L 500.2500, L100.0100 #### [facility] [address] [place], [address] Sodium [Moles/Vol] 140 mmol/L Normal 133-145 [facility] Comment on above: Performed By: #### L 500.2500, L100.0100 #### [facility] [address] [place], [address] Urea nitrogen [Mass/Vol] 15 mg/dL Normal 4-19 [facility] Comment on above: Performed By: #### L 500.2500, L100.0100 #### [facility] [address] [place], [address] CBC W/Diff, Automatedon 04-2 -2024 Absolute Lymph 1.55 X10 3/uL Normal 0.83-4.51 [facility] Comment on above: Performed By: #### L 500.2500, L100.0100 #### [facility] [address] [place], [address] Absolute Neut 7.8 X10 3/uL High 2.0-7.7 [facility] Comment on above: Performed By: #### L 500.2500, L100.0100 #### [facility] [address] [place], [address] Basophils/100 WBC (Bld) 0.9 % Normal 0-1 [facility] Comment on above: Performed By: #### L 500.2500, L100.0100 #### [facility] [address] [place], [address] Eosinophils/100 WBC (Bld) 2.5 % Normal 0-5 [facility] Comment on above: Performed By: #### L 500.2500, L100.0100 #### [facility] [address] [place], [address] Erythrocyte distribution width (RBC) [Ratio] 16.0 % High 11.6-14.6 [facility] Comment on above: Performed By: #### L 500.2500, L100.0100 #### [facility] [address] [place], [address] Hematocrit (Bld) [Volume fraction] 28.8 % Low 37-47 [facility] Comment on above: Performed By: #### L 500.2500, L100.0100 #### [facility] [address] [place], [address] Hemoglobin (Bld) [Mass/Vol] 9.5 g/dL Low 12.0-15.0 [facility] Comment on above: Performed By: #### L 500.2500, L100.0100 #### [facility] [address] [place], [address] IG% 2.000 High 0.0-0.9 [facility] Comment on above: Result Comment: IG% - Immature Granulocytes (promyelocytes, myelocytes and metamyelocytes) > 1% indicates that a LEFT SHIFT is Present. Performed By: #### L 500.2500, L100.0100 #### [facility] [address] [place], [address] Lymphocytes/100 WBC (Bld) 14.7 % Low 19-41 [facility] Comment on above: Performed By: #### L 500.2500, L100.0100 #### [facility] [address] [place], [address] MCH (RBC) [Entitic mass] 30.7 pg Normal 27.0-32.0 [facility] Comment on above: Performed By: #### L 500.2500, L100.0100 #### [facility] [address] [place], [address] MCHC (RBC) [Mass/Vol] 33.0 g/dL Normal 32-36 [facility] Comment on above: Performed By: #### L 500.2500, L100.0100 #### [facility] [address] [place], [address] MCV (RBC) [Entitic vol] 93.2 fL Normal 81-99 [facility] Comment on above: Performed By: #### L 500.2500, L100.0100 #### [facility] [address] [place], [address] Monocytes/100 WBC (Bld) 5.9 % Normal 0-10 [facility] Comment on above: Performed By: #### L 500.2500, L100.0100 #### [facility] [address] [place], [address] Neutrophils/100 WBC (Bld) 74.0 % High 47-70 [facility] Comment on above: Performed By: #### L 500.2500, L100.0100 #### [facility] [address] [place], [address] Nucleated RBC (Bld) [#/Vol] 0 10*3/uL Normal 0-5 [facility] Comment on above: Performed By: #### L 500.2500, L100.0100 #### [facility] [address] [place], [address] Platelet mean volume (Bld) [Entitic vol] 9.4 fL Normal 6.2-12.0 [facility] Comment on above: Performed By: #### L 500.2500, L100.0100 #### [facility] [address] [place], [address] Platelets (Bld) [#/Vol] 312 10*3/uL Normal 150-450 [facility] Comment on above: Performed By: #### L 500.2500, L100.0100 #### [facility] [address] [place], [address] RBC (Bld) [#/Vol] 3.09 10*6/uL Low 4.2-5.4 [facility] Comment on above: Performed By: #### L 500.2500, L100.0100 #### [facility] [address] [place], [address] RDW SD 52.6 fl High 35.1-43.9 [facility] Comment on above: Performed By: #### L 500.2500, L100.0100 #### [facility] [address] [place], [address] WBC (Bld) [#/Vol] 10.6 10*3/uL Normal 4.4-11.0 [facility] Comment on above: Performed By: #### L 500.2500, L100.0100 #### [facility] [address] [place], [address] Chest PA and Lateralon 03-11 Chest PA and Lateral [facility] [address] [place] [address] Chest PA and Lateral MR#: [id number] Acct: [id number] Name: MICHAELA BRANDT Rep #: [id number] : 1940 F 84 From: Greg cooper MD PCP: Dr. Dillan Santiago MD Status: ADM IN Study: Chest PA and Lateral Date of Exam: 03/11/25 Exam# [id number] Ordering Dr: Garfield Yo MD PROCEDURE: CHEST PA AND LATERAL 03/11/2025 REASON FOR EXAM: BIBASILAR CRACKLES. TECHNIQUE: Frontal and lateral views of the chest. COMPARISON: 03/01/2025. FINDINGS: Unchanged bilateral chronic interstitial pulmonary thickening. Increased bilateral basilar atelectatic pulmonary changes. Unchanged mild cardiomegaly. There is no demonstrated pleural abnormality. Normal mediastinum and beau. Normal visualized pulmonary arteries. Mild atheromatous plaques of the visualized aortic arch and descending thoracic aorta. Diffuse spondylosis of the visualized thoracic spine. Normal visualized ribs, clavicles, and shoulders. There is no demonstrated abnormality of the visualized soft tissue structures of the upper abdomen. RAD/Chest PA and Lateral IMPRESSION: 1. Unchanged bilateral chronic interstitial pulmonary thickening. 2. Increased bilateral basilar atelectatic pulmonary changes. 3. Unchanged mild cardiomegaly. Reading Location: [place] [address] CC: Dr. Dillan Santiago MD; Dr. Garfield Yo MD Harbour Master: Signed Normal [facility] Basic Metabolic Profile (BMP )on 03-10-2025 BUN Normal 4-19 [facility] Comment on above: Result Comment: Canc elled via OM: Order cancelled - Patient discharged Performed By: #### L 100.0100, L500.2500 #### [facility] [address] [place], [address] BUN/CRE Normal 10-20 [facility] Comment on above: Result Comment: Canc elled via OM: Order cancelled - Patient discharged Performed By: #### L 100.0100, L500.2500 #### [facility] [address] [place], [address] Calcium Normal 7.6-11.0 [facility] Comment on above: Result Comment: Canc elled via OM: Order cancelled - Patient discharged Performed By: #### L 100.0100, L500.2500 #### [facility] [address] [place], [address] CL Normal 98-108 [facility] Comment on above: Result Comment: Canc elled via OM: Order cancelled - Patient discharged Performed By: #### L 100.0100, L500.2500 #### [facility] [address] [place], [address] CO2 Normal 21.0-32.0 [facility] Comment on above: Result Comment: Canc elled via OM: Order cancelled - Patient discharged Performed By: #### L 100.0100, L500.2500 #### [facility] [address] [place], [address] CREAT,SERUM Normal 0.70-1.20 [facility] Comment on above: Result Comment: Canc elled via OM: Order cancelled - Patient discharged Performed By: #### L 100.0100, L500.2500 #### [facility] [address] [place], [address] eGFR Normal >60 [facility] Comment on above: Result Comment: Canc elled via OM: Order cancelled - Patient discharged Performed By: #### L 100.0100, L500.2500 #### [facility] [address] [place], [address] GAP Normal 5-15 [facility] Comment on above: Result Comment: Canc elled via OM: Order cancelled - Patient discharged Performed By: #### L 100.0100, L500.2500 #### [facility] [address] [place], [address] GLU Normal 70-99 [facility] Comment on above: Result Comment: Canc elled via OM: Order cancelled - Patient discharged Performed By: #### L 100.0100, L500.2500 #### [facility] [address] [place], [address] Potassium Normal 3.3-5.1 [facility] Comment on above: Result Comment: Canc elled via OM: Order cancelled - Patient discharged Performed By: #### L 100.0100, L500.2500 #### [facility] [address] [place], [address] Basic Metabolic Profile (BMP) Normal 133-145 [facility] Comment on above: Result Comment: Canc elled via OM: Order cancelled - Patient discharged Performed By: #### L 100.0100, L500.2500 #### [facility] [address] [place], [address] CBC W/Diff, Automatedon - Absolute Neut Normal 2.0-7.7 [facility] Comment on above: Result Comment: Canc elled via OM: Order cancelled - Patient discharged Performed By: #### L 100.0100, L500.2500 #### [facility] [address] [place], [address] HCT Normal 37-47 [facility] Comment on above: Result Comment: Canc elled via OM: Order cancelled - Patient discharged Performed By: #### L 100.0100, L500.2500 #### [facility] [address] [place], [address] HGB Normal 12.0-15.0 [facility] Comment on above: Result Comment: Canc elled via OM: Order cancelled - Patient discharged Performed By: #### L 100.0100, L500.2500 #### [facility] [address] [place], [address] MCH Normal 27.0-32.0 [facility] Comment on above: Result Comment: Canc elled via OM: Order cancelled - Patient discharged Performed By: #### L 100.0100, L500.2500 #### [facility] [address] [place], [address] MCHC Normal 32-36 [facility] Comment on above: Result Comment: Canc elled via OM: Order cancelled - Patient discharged Performed By: #### L 100.0100, L500.2500 #### [facility] [address] [place], [address] MCV Normal 81-99 [facility] Comment on above: Result Comment: Canc elled via OM: Order cancelled - Patient discharged Performed By: #### L 100.0100, L500.2500 #### [facility] [address] [place], [address] NEUT% Normal 47-70 [facility] Comment on above: Result Comment: Canc elled via OM: Order cancelled - Patient discharged Performed By: #### L 100.0100, L500.2500 #### [facility] [address] [place], [address] PLT Normal 150-450 [facility] Comment on above: Result Comment: Canc elled via OM: Order cancelled - Patient discharged Performed By: #### L 100.0100, L500.2500 #### [facility] [address] [place], [address] RBC Normal 4.2-5.4 [facility] Comment on above: Result Comment: Canc elled via OM: Order cancelled - Patient discharged Performed By: #### L 100.0100, L500.2500 #### [facility] [address] [place], [address] RDW CV Normal 11.6-14.6 [facility] Comment on above: Result Comment: Canc elled via OM: Order cancelled - Patient discharged Performed By: #### L 100.0100, L500.2500 #### [facility] [address] [place], [address] RDW SD Normal 35.1-43.9 [facility] Comment on above: Result Comment: Canc elled via OM: Order cancelled - Patient discharged Performed By: #### L 100.0100, L500.2500 #### [facility] [address] [place], [address] WBC Normal 4.4-11.0 [facility] Comment on above: Result Comment: Canc elled via OM: Order cancelled - Patient discharged Performed By: #### L 100.0100, L500.2500 #### [facility] [address] [place], [address] Basic Metabolic Profile (BMP )on 03-09-2025 BUN Normal 4-19 [facility] Comment on above: Result Comment: Canc elled via OM: Order cancelled - Patient discharged Performed By: #### L 100.0100, L500.2500 #### [facility] [address] [place], [address] BUN/CRE Normal 10-20 [facility] Comment on above: Result Comment: Canc elled via OM: Order cancelled - Patient discharged Performed By: #### L 100.0100, L500.2500 #### [facility] [address] [place], [address] Calcium Normal 7.6-11.0 [facility] Comment on above: Result Comment: Canc elled via OM: Order cancelled - Patient discharged Performed By: #### L 100.0100, L500.2500 #### [facility] [address] [place], [address] CL Normal 98-108 [facility] Comment on above: Result Comment: Canc elled via OM: Order cancelled - Patient discharged Performed By: #### L 100.0100, L500.2500 #### [facility] [address] [place], [address] CO2 Normal 21.0-32.0 [facility] Comment on above: Result Comment: Canc elled via OM: Order cancelled - Patient discharged Performed By: #### L 100.0100, L500.2500 #### [facility] [address] [place], [address] CREAT,SERUM Normal 0.70-1.20 [facility] Comment on above: Result Comment: Canc elled via OM: Order cancelled - Patient discharged Performed By: #### L 100.0100, L500.2500 #### [facility] [address] [place], [address] eGFR Normal >60 [facility] Comment on above: Result Comment: Canc elled via OM: Order cancelled - Patient discharged Performed By: #### L 100.0100, L500.2500 #### [facility] [address] [place], [address] GAP Normal 5-15 [facility] Comment on above: Result Comment: Canc elled via OM: Order cancelled - Patient discharged Performed By: #### L 100.0100, L500.2500 #### [facility] [address] [place], [address] GLU Normal 70-99 [facility] Comment on above: Result Comment: Canc elled via OM: Order cancelled - Patient discharged Performed By: #### L 100.0100, L500.2500 #### [facility] [address] [place], [address] Potassium Normal 3.3-5.1 [facility] Comment on above: Result Comment: Canc elled via OM: Order cancelled - Patient discharged Performed By: #### L 100.0100, L500.2500 #### [facility] [address] [place], [address] Basic Metabolic Profile (BMP) Normal 133-145 [facility] Comment on above: Result Comment: Canc elled via OM: Order cancelled - Patient discharged Performed By: #### L 100.0100, L500.2500 #### [facility] [address] [place], [address] CBC W/Diff, Automatedon 04-2 Absolute Neut Normal 2.0-7.7 [facility] Comment on above: Result Comment: Canc elled via OM: Order cancelled - Patient discharged Performed By: #### L 100.0100, L500.2500 #### [facility] [address] [place], [address] HCT Normal 37-47 [facility] Comment on above: Result Comment: Canc elled via OM: Order cancelled - Patient discharged Performed By: #### L 100.0100, L500.2500 #### [facility] [address] [place], [address] HGB Normal 12.0-15.0 [facility] Comment on above: Result Comment: Canc elled via OM: Order cancelled - Patient discharged Performed By: #### L 100.0100, L500.2500 #### [facility] [address] [place], [address] MCH Normal 27.0-32.0 [facility] Comment on above: Result Comment: Canc elled via OM: Order cancelled - Patient discharged Performed By: #### L 100.0100, L500.2500 #### [facility] [address] [place], [address] MCHC Normal 32-36 [facility] Comment on above: Result Comment: Canc elled via OM: Order cancelled - Patient discharged Performed By: #### L 100.0100, L500.2500 #### [facility] [address] [place], [address] MCV Normal 81-99 [facility] Comment on above: Result Comment: Canc elled via OM: Order cancelled - Patient discharged Performed By: #### L 100.0100, L500.2500 #### [facility] [address] [place], [address] NEUT% Normal 47-70 [facility] Comment on above: Result Comment: Canc elled via OM: Order cancelled - Patient discharged Performed By: #### L 100.0100, L500.2500 #### [facility] [address] [place], [address] PLT Normal 150-450 [facility] Comment on above: Result Comment: Canc elled via OM: Order cancelled - Patient discharged Performed By: #### L 100.0100, L500.2500 #### [facility] [address] [place], [address] RBC Normal 4.2-5.4 [facility] Comment on above: Result Comment: Canc elled via OM: Order cancelled - Patient discharged Performed By: #### L 100.0100, L500.2500 #### [facility] [address] [place], [address] RDW CV Normal 11.6-14.6 [facility] Comment on above: Result Comment: Canc elled via OM: Order cancelled - Patient discharged Performed By: #### L 100.0100, L500.2500 #### [facility] [address] [place], [address] RDW SD Normal 35.1-43.9 [facility] Comment on above: Result Comment: Canc elled via OM: Order cancelled - Patient discharged Performed By: #### L 100.0100, L500.2500 #### [facility] [address] [place], [address] WBC Normal 4.4-11.0 [facility] Comment on above: Result Comment: Canc elled via OM: Order cancelled - Patient discharged Performed By: #### L 100.0100, L500.2500 #### [facility] [address] [place], [address] Venous Duplex US, Unilateral on 03-09-2025 Venous Duplex US, Unilateral [facility] [address] [place] [address] Venous Duplex US, Unilateral 03/09/25920 MR#: [id number] Acct: [id number] Name: MICHAELA BRANDT Rep #: [id number] : 1940 84 From: Vadim Estrada MD Attending Dr: Dr. Garfield Yo MD Status: REG CLI Ordering Dr: Garfield Yo MD Date: 03/09/25 Location: [facility] Sex: F C Admitted: Reason For Study Reason For Study: LLE PAin RIGHT LEFT CFV is compressible, spontaneous, phasic, competent GSV is normal. and demonstrates normal augmentation. CFV is compressible, spontaneous, phasic, competent, Procedure and demonstrates normal augmentation. This is a venous duplex using B-mode, color flow and FV is compressible, spontaneous, phasic, competent and spectral Doppler. demonstrates normal augmentation. Exam performed in department. POP V is compressible, spontaneous, phasic, competent The exam was diagnostic. and demonstrates normal augmentation. 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 Acute deep vein thrombosis is noted in the Per V. It is dilated and NONCOMPRESSIBLE. VL/Venous Duplex US, Unilateral Interpretation Summary Acute deep vein thrombosis is noted in the left peroneal vein. Ordering Physician: Garfield Yo Chi Referring Physician: Dillan Santiago Performed By: Raul Katz, T 03/09/251849 Date Vadim Estrada MD CC: Dr. Dillan Santiago MD; Dr. Garfield Yo MD Date Dictated: 03/09/25920 Date Transcribed: 03/09/251849 Harbour Master: Signed Normal [facility] Venous duplex ultrasound rep ortOrdered By: Vadim Estrada on 03-09-2025 US Vein [facility] [address] [place] [address] Venous Duplex US, Unilateral 03/09/25920 MR#: [id number] Acct: [id number] Name: MICHAELA BRANDT Rep #:[id number] : 1940 84 From: Vadim Laws Attending Dr: Dr. Garfield Yo MD Status: REG CLI Ordering Dr: Garfield Yo MD Date: Location: CVS Sex: F C Admitted: Reason For Study Reason For Study: LLE PAin RIGHT LEFT CFV is compressible, spontaneous, phasic, competent GSV is normal. and demonstrates normal augmentation. CFV is compressible, spontaneous, phasic, competent, Procedure and demonstrates normal augmentation. This is a venous duplex using B-mode, color flow and FV is compressible, spontaneous, phasic, competent and spectral Doppler. demonstrates normal augmentation. Exam performed in department. POP V is compressible, spontaneous, phasic, competent The exam was diagnostic. and demonstrates normal augmentation. 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 Acute deep vein thrombosis is noted in the Per V. It is dilated andNONCOMPRESSIBLE. VL/Venous Duplex US, Unilateral Interpretation Summary Acute deep vein thrombosis is noted in the left peroneal vein. Ordering Physician: Garfield Yo Chi Referring Physician: Dillan Santiago Performed By: Raul Katz, RVT 03/09/251849 Date _ Vadim Estrada MD CC: Dr. Dillan Santiago MD; Dr. Garfield Yo MD ~ Date Dictated: 03/09/25920 Date Transcribed: 03/09/251849 Harbour Master: Signed [facility] Work Phone: Basic Metabolic Profile (BMP )on 03-08-2025 BUN Normal 4-19 [facility] Comment on above: Result Comment: Canc elled via OM: Order cancelled - Patient discharged Performed By: #### L 100.0100, L500.2500 #### [facility] [address] [place], [address] BUN/CRE Normal 10-20 [facility] Comment on above: Result Comment: Canc elled via OM: Order cancelled - Patient discharged Performed By: #### L 100.0100, L500.2500 #### [facility] [address] [place], [address] Calcium Normal 7.6-11.0 [facility] Comment on above: Result Comment: Canc elled via OM: Order cancelled - Patient discharged Performed By: #### L 100.0100, L500.2500 #### [facility] [address] [place], [address] CL Normal 98-108 [facility] Comment on above: Result Comment: Canc elled via OM: Order cancelled - Patient discharged Performed By: #### L 100.0100, L500.2500 #### [facility] [address] [place], [address] CO2 Normal 21.0-32.0 [facility] Comment on above: Result Comment: Canc elled via OM: Order cancelled - Patient discharged Performed By: #### L 100.0100, L500.2500 #### [facility] [address] [place], [address] CREAT,SERUM Normal 0.70-1.20 [facility] Comment on above: Result Comment: Canc elled via OM: Order cancelled - Patient discharged Performed By: #### L 100.0100, L500.2500 #### [facility] [address] [place], [address] eGFR Normal >60 [facility] Comment on above: Result Comment: Canc elled via OM: Order cancelled - Patient discharged Performed By: #### L 100.0100, L500.2500 #### [facility] [address] [place], [address] GAP Normal 5-15 [facility] Comment on above: Result Comment: Canc elled via OM: Order cancelled - Patient discharged Performed By: #### L 100.0100, L500.2500 #### [facility] [address] [place], [address] GLU Normal 70-99 [facility] Comment on above: Result Comment: Canc elled via OM: Order cancelled - Patient discharged Performed By: #### L 100.0100, L500.2500 #### [facility] [address] [place], [address] Potassium Normal 3.3-5.1 [facility] Comment on above: Result Comment: Canc elled via OM: Order cancelled - Patient discharged Performed By: #### L 100.0100, L500.2500 #### [facility] [address] [place], [address] Basic Metabolic Profile (BMP) Normal 133-145 [facility] Comment on above: Result Comment: Canc elled via OM: Order cancelled - Patient discharged Performed By: #### L 100.0100, L500.2500 #### [facility] [address] [place], [address] CBC W/Diff, Automatedon 04-2 0-2024 Absolute Neut Normal 2.0-7.7 [facility] Comment on above: Result Comment: Canc elled via OM: Order cancelled - Patient discharged Performed By: #### L 100.0100, L500.2500 #### [facility] [address] [place], [address] HCT Normal 37-47 [facility] Comment on above: Result Comment: Canc elled via OM: Order cancelled - Patient discharged Performed By: #### L 100.0100, L500.2500 #### [facility] [address] [place], [address] HGB Normal 12.0-15.0 [facility] Comment on above: Result Comment: Canc elled via OM: Order cancelled - Patient discharged Performed By: #### L 100.0100, L500.2500 #### [facility] [address] [place], [address] MCH Normal 27.0-32.0 [facility] Comment on above: Result Comment: Canc elled via OM: Order cancelled - Patient discharged Performed By: #### L 100.0100, L500.2500 #### [facility] [address] [place], [address] MCHC Normal 32-36 [facility] Comment on above: Result Comment: Canc elled via OM: Order cancelled - Patient discharged Performed By: #### L 100.0100, L500.2500 #### [facility] [address] [place], [address] MCV Normal 81-99 [facility] Comment on above: Result Comment: Canc elled via OM: Order cancelled - Patient discharged Performed By: #### L 100.0100, L500.2500 #### [facility] [address] [place], [address] NEUT% Normal 47-70 [facility] Comment on above: Result Comment: Canc elled via OM: Order cancelled - Patient discharged Performed By: #### L 100.0100, L500.2500 #### [facility] [address] [place], [address] PLT Normal 150-450 [facility] Comment on above: Result Comment: Canc elled via OM: Order cancelled - Patient discharged Performed By: #### L 100.0100, L500.2500 #### [facility] [address] [place], [address] RBC Normal 4.2-5.4 [facility] Comment on above: Result Comment: Canc elled via OM: Order cancelled - Patient discharged Performed By: #### L 100.0100, L500.2500 #### [facility] [address] [place], [address] RDW CV Normal 11.6-14.6 [facility] Comment on above: Result Comment: Canc elled via OM: Order cancelled - Patient discharged Performed By: #### L 100.0100, L500.2500 #### [facility] [address] [place], [address] RDW SD Normal 35.1-43.9 [facility] Comment on above: Result Comment: Canc elled via OM: Order cancelled - Patient discharged Performed By: #### L 100.0100, L500.2500 #### [facility] [address] [place], [address] WBC Normal 4.4-11.0 [facility] Comment on above: Result Comment: Canc elled via OM: Order cancelled - Patient discharged Performed By: #### L 100.0100, L500.2500 #### [facility] [address] [place], [address] Basic Metabolic Profile (BMP )on 03-07-2025 BUN Normal 4-19 [facility] Comment on above: Result Comment: Canc elled via OM: Order cancelled - Patient discharged Performed By: #### L 100.0100, L500.2500 #### [facility] [address] [place], [address] BUN/CRE Normal 10-20 [facility] Comment on above: Result Comment: Canc elled via OM: Order cancelled - Patient discharged Performed By: #### L 100.0100, L500.2500 #### [facility] [address] [place], [address] Calcium Normal 7.6-11.0 [facility] Comment on above: Result Comment: Canc elled via OM: Order cancelled - Patient discharged Performed By: #### L 100.0100, L500.2500 #### [facility] [address] [place], [address] CL Normal 98-108 [facility] Comment on above: Result Comment: Canc elled via OM: Order cancelled - Patient discharged Performed By: #### L 100.0100, L500.2500 #### [facility] [address] [place], [address] CO2 Normal 21.0-32.0 [facility] Comment on above: Result Comment: Canc elled via OM: Order cancelled - Patient discharged Performed By: #### L 100.0100, L500.2500 #### [facility] [address] [place], [address] CREAT,SERUM Normal 0.70-1.20 [facility] Comment on above: Result Comment: Canc elled via OM: Order cancelled - Patient discharged Performed By: #### L 100.0100, L500.2500 #### [facility] [address] [place], [address] eGFR Normal >60 [facility] Comment on above: Result Comment: Canc elled via OM: Order cancelled - Patient discharged Performed By: #### L 100.0100, L500.2500 #### [facility] [address] [place], [address] GAP Normal 5-15 [facility] Comment on above: Result Comment: Canc elled via OM: Order cancelled - Patient discharged Performed By: #### L 100.0100, L500.2500 #### [facility] [address] [place], [address] GLU Normal 70-99 [facility] Comment on above: Result Comment: Canc elled via OM: Order cancelled - Patient discharged Performed By: #### L 100.0100, L500.2500 #### [facility] [address] [place], [address] Potassium Normal 3.3-5.1 [facility] Comment on above: Result Comment: Canc elled via OM: Order cancelled - Patient discharged Performed By: #### L 100.0100, L500.2500 #### [facility] [address] [place], [address] Basic Metabolic Profile (BMP) Normal 133-145 [facility] Comment on above: Result Comment: Canc elled via OM: Order cancelled - Patient discharged Performed By: #### L 100.0100, L500.2500 #### [facility] [address] [place], [address] CBC W/Diff, Automatedon 04- Absolute Neut Normal 2.0-7.7 [facility] Comment on above: Result Comment: Canc elled via OM: Order cancelled - Patient discharged Performed By: #### L 100.0100, L500.2500 #### [facility] [address] [place], [address] HCT Normal 37-47 [facility] Comment on above: Result Comment: Canc elled via OM: Order cancelled - Patient discharged Performed By: #### L 100.0100, L500.2500 #### [facility] [address] [place], [address] HGB Normal 12.0-15.0 [facility] Comment on above: Result Comment: Canc elled via OM: Order cancelled - Patient discharged Performed By: #### L 100.0100, L500.2500 #### [facility] [address] [place], [address] MCH Normal 27.0-32.0 [facility] Comment on above: Result Comment: Canc elled via OM: Order cancelled - Patient discharged Performed By: #### L 100.0100, L500.2500 #### [facility] [address] [place], [address] MCHC Normal 32-36 [facility] Comment on above: Result Comment: Canc elled via OM: Order cancelled - Patient discharged Performed By: #### L 100.0100, L500.2500 #### [facility] [address] [place], [address] MCV Normal 81-99 [facility] Comment on above: Result Comment: Canc elled via OM: Order cancelled - Patient discharged Performed By: #### L 100.0100, L500.2500 #### [facility] [address] [place], [address] NEUT% Normal 47-70 [facility] Comment on above: Result Comment: Canc elled via OM: Order cancelled - Patient discharged Performed By: #### L 100.0100, L500.2500 #### [facility] [address] [place], [address] PLT Normal 150-450 [facility] Comment on above: Result Comment: Canc elled via OM: Order cancelled - Patient discharged Performed By: #### L 100.0100, L500.2500 #### [facility] [address] [place], [address] RBC Normal 4.2-5.4 [facility] Comment on above: Result Comment: Canc elled via OM: Order cancelled - Patient discharged Performed By: #### L 100.0100, L500.2500 #### [facility] [address] [place], [address] RDW CV Normal 11.6-14.6 [facility] Comment on above: Result Comment: Canc elled via OM: Order cancelled - Patient discharged Performed By: #### L 100.0100, L500.2500 #### [facility] [address] [place], [address] RDW SD Normal 35.1-43.9 [facility] Comment on above: Result Comment: Canc elled via OM: Order cancelled - Patient discharged Performed By: #### L 100.0100, L500.2500 #### [facility] [address] [place], [address] WBC Normal 4.4-11.0 [facility] Comment on above: Result Comment: Canc elled via OM: Order cancelled - Patient discharged Performed By: #### L 100.0100, L500.2500 #### [facility] [address] [place], [address] HH, Hemoglobin AND Hematocri ton 03-07-2025 Hematocrit (Bld) [Volume fraction] 26.2 % Low 37-47 [facility] Comment on above: Performed By: #### L 100.0600 #### [facility] [address] [place], [address] Hemoglobin (Bld) [Mass/Vol] 9.0 g/dL Low 12.0-15.0 [facility] Comment on above: Performed By: #### L 100.0600 #### [facility] [address] [place], [address] Hematocrit Auto (Bld) [Volum e fraction]Ordered By: Garfield Yo on 03-07-2025 Hematocrit (Bld) [Volume fraction] 26.2 % Low 37-47 [facility] Hemoglobin measurementOrdere d By: Garfield Yo on 03-07-2025 Hemoglobin (Bld) [Mass/Vol] 9.0 g/dL Low 12.0-15.0 [facility] Basic Metabolic Profile (BMP )on 03-06-2025 BUN Normal 4-19 [facility] Comment on above: Result Comment: Canc elled via OM: Order cancelled - Patient discharged Performed By: #### L 100.0100, L500.2500 #### [facility] [address] [place], [address] BUN/CRE Normal 10-20 [facility] Comment on above: Result Comment: Canc elled via OM: Order cancelled - Patient discharged Performed By: #### L 100.0100, L500.2500 #### [facility] [address] [place], [address] Calcium Normal 7.6-11.0 [facility] Comment on above: Result Comment: Canc elled via OM: Order cancelled - Patient discharged Performed By: #### L 100.0100, L500.2500 #### [facility] [address] [place], [address] CL Normal 98-108 [facility] Comment on above: Result Comment: Canc elled via OM: Order cancelled - Patient discharged Performed By: #### L 100.0100, L500.2500 #### [facility] [address] [place], [address] CO2 Normal 21.0-32.0 [facility] Comment on above: Result Comment: Canc elled via OM: Order cancelled - Patient discharged Performed By: #### L 100.0100, L500.2500 #### [facility] [address] [place], [address] CREAT,SERUM Normal 0.70-1.20 [facility] Comment on above: Result Comment: Canc elled via OM: Order cancelled - Patient discharged Performed By: #### L 100.0100, L500.2500 #### [facility] [address] [place], [address] eGFR Normal >60 [facility] Comment on above: Result Comment: Canc elled via OM: Order cancelled - Patient discharged Performed By: #### L 100.0100, L500.2500 #### [facility] [address] [place], [address] GAP Normal 5-15 [facility] Comment on above: Result Comment: Canc elled via OM: Order cancelled - Patient discharged Performed By: #### L 100.0100, L500.2500 #### [facility] [address] [place], [address] GLU Normal 70-99 [facility] Comment on above: Result Comment: Canc elled via OM: Order cancelled - Patient discharged Performed By: #### L 100.0100, L500.2500 #### [facility] [address] [place], [address] Potassium Normal 3.3-5.1 [facility] Comment on above: Result Comment: Canc elled via OM: Order cancelled - Patient discharged Performed By: #### L 100.0100, L500.2500 #### [facility] [address] [place], [address] Basic Metabolic Profile (BMP) Normal 133-145 [facility] Comment on above: Result Comment: Canc elled via OM: Order cancelled - Patient discharged Performed By: #### L 100.0100, L500.2500 #### [facility] [address] [place], [address] CBC W/Diff, Automatedon - Absolute Neut Normal 2.0-7.7 [facility] Comment on above: Result Comment: Canc elled via OM: Order cancelled - Patient discharged Performed By: #### L 100.0100, L500.2500 #### [facility] [address] [place], [address] HCT Normal 37-47 [facility] Comment on above: Result Comment: Canc elled via OM: Order cancelled - Patient discharged Performed By: #### L 100.0100, L500.2500 #### [facility] [address] [place], [address] HGB Normal 12.0-15.0 [facility] Comment on above: Result Comment: Canc elled via OM: Order cancelled - Patient discharged Performed By: #### L 100.0100, L500.2500 #### [facility] [address] [place], [address] MCH Normal 27.0-32.0 [facility] Comment on above: Result Comment: Canc elled via OM: Order cancelled - Patient discharged Performed By: #### L 100.0100, L500.2500 #### [facility] [address] [place], [address] MCHC Normal 32-36 [facility] Comment on above: Result Comment: Canc elled via OM: Order cancelled - Patient discharged Performed By: #### L 100.0100, L500.2500 #### [facility] [address] [place], [address] MCV Normal 81-99 [facility] Comment on above: Result Comment: Canc elled via OM: Order cancelled - Patient discharged Performed By: #### L 100.0100, L500.2500 #### [facility] [address] [place], [address] NEUT% Normal 47-70 [facility] Comment on above: Result Comment: Canc elled via OM: Order cancelled - Patient discharged Performed By: #### L 100.0100, L500.2500 #### [facility] [address] [place], [address] PLT Normal 150-450 [facility] Comment on above: Result Comment: Canc elled via OM: Order cancelled - Patient discharged Performed By: #### L 100.0100, L500.2500 #### [facility] [address] [place], [address] RBC Normal 4.2-5.4 [facility] Comment on above: Result Comment: Canc elled via OM: Order cancelled - Patient discharged Performed By: #### L 100.0100, L500.2500 #### [facility] [address] [place], [place], [id number] RDW CV Normal 11.6-14.6 [facility] Comment on above: Result Comment: Canc elled via OM: Order cancelled - Patient discharged Performed By: #### L 100.0100, L500.2500 #### [facility] [address] [place], [address] RDW SD Normal 35.1-43.9 [facility] Comment on above: Result Comment: Canc elled via OM: Order cancelled - Patient discharged Performed By: #### L 100.0100, L500.2500 #### [facility] [address] [place], [address] WBC Normal 4.4-11.0 [facility] Comment on above: Result Comment: Canc elled via OM: Order cancelled - Patient discharged Performed By: #### L 100.0100, L500.2500 #### [facility] [address] [place], [address] Knee 1 or 2 Viewson 03-06-20 25 Knee 1 or 2 Views [facility] Services [address] [place] [address] Knee 1 or 2 Views MR#: [id number] Acct: [id number] Name: MICHAELA BRANDT Rep #: [id number] : [id number] F 84 From: Marc Warner MD PCP: Dr. Dillan Santiago MD Status: ADM IN Study: Knee 1 or 2 Views Date of Exam: 03/06/25 Exam# [id number] Ordering Dr: Garfield Yo MD PROCEDURE: KNEE 1 OR 2 VIEWS 03/06/2025 REASON FOR EXAM: PAIN TECHNIQUE: 3 views of the left knee COMPARISON: 03/01/2025 FINDINGS: Bones: No fracture. No suspicious bone lesion. Irregularity of the lateral femoral condyle is unchanged and of uncertain significance. CT or MRI may be useful. Joints: Mild joint space narrowing consistent with mild arthrosis. Effusion: No effusion. Soft tissues: Soft tissues are unremarkable. Other: RAD/Knee 1 or 2 Views IMPRESSION: No change from 03/01/2025. CT or MRI may be useful. Reading Location: [facility] CC: Dr. Dillan Santiago MD; Dr. Garfield Yo MD Harbour Master: Signed Normal [facility] Absolute neutrophil countOrd ered By: Garfield Yo on 03-05-2025 Neutrophils (Bld) [#/Vol] 7.3 10*3/uL 2.0-7.7 [facility] Anion gap in Serum or Plasma Ordered By: Garfield Yo on 03-05-2025 Anion gap [Moles/Vol] 10 mmol/L 04-02 [facility] BUN/creatinine ratioOrdered By: Garfield Yo on 03-05-2025 Urea nitrogen/Creatinine [Mass ratio] 17.0 mg/mg - [facility] Basic Metabolic Profile (BMP )on 03-05-2025 BUN/CRE 17.0 RATIO Normal 09-07 [facility] Comment on above: Performed By: #### L 100.0600 #### [facility] [address] [place] [address]. [place], [place], [id number] Calcium [Mass/Vol] 8.5 mg/dL Normal 7.6-11.0 [facility] Comment on above: Performed By: #### L 100.0600 #### [facility] [address] [place], [address] Chloride [Moles/Vol] 102 mmol/L Normal 98-[address] [facility] Comment on above: Performed By: #### L 100.0600 #### [facility] [address] [place], [address] CO2 [Moles/Vol] 27.5 mmol/L Normal 21.0-32.0 [facility] Comment on above: Performed By: #### L 100.0600 #### [facility] [address] [place], [address] Creatinine [Mass/Vol] 0.78 mg/dL Normal 0.70-1.20 [facility] Comment on above: Performed By: #### L 100.0600 #### [facility] [address] [place], [address] ECRCL 41.90 ml/min Low 50-250 [facility] Comment on above: Performed By: #### L 100.0600 #### [facility] [address] [place], [address] GAP 10 Normal 5-15 [facility] Comment on above: Performed By: #### L 100.0600 #### [facility] [address] [place], [address] GFR/1.73 sq M.predicted among non-blacks MDRD (S/P/Bld) [Vol rate/Area] 74 mL/min/{1.73_m2} Normal >60 [facility] Comment on above: Result Comment: mL/m in/1.73m2 CKD-EPI Creatinine Equation (2020) Performed By: #### L 100.0600 #### [facility] [address] [place], [address] Glucose [Mass/Vol] 100 mg/dL High 70-99 [facility] Comment on above: Performed By: #### L 100.0600 #### [facility] [address] [place], [address] Potassium [Moles/Vol] 3.3 mmol/L Normal 3.3-5.1 [facility] Comment on above: Performed By: #### L 100.0600 #### [facility] [address] [place], [address] Sodium [Moles/Vol] 140 mmol/L Normal 133-145 [facility] Comment on above: Performed By: #### L 100.0600 #### [facility] [address] [place], [address] Urea nitrogen [Mass/Vol] 13 mg/dL Normal 4-19 [facility] Comment on above: Performed By: #### L 100.0600 #### [facility] [address] [place], [address] BUN Normal 4-19 [facility] Comment on above: Result Comment: Canc elled via OM: Order cancelled - Patient discharged Performed By: #### L 100.0100, L500.2500 #### [facility] [address] [place], [address] BUN/CRE Normal 10-20 [facility] Comment on above: Result Comment: Canc elled via OM: Order cancelled - Patient discharged Performed By: #### L 100.0100, L500.2500 #### [facility] [address] [place], [address] Calcium Normal 7.6-11.0 [facility] Comment on above: Result Comment: Canc elled via OM: Order cancelled - Patient discharged Performed By: #### L 100.0100, L500.2500 #### [facility] [address] [place], [address] CL Normal 98-108 [facility] Comment on above: Result Comment: Canc elled via OM: Order cancelled - Patient discharged Performed By: #### L 100.0100, L500.2500 #### [facility] [address] [place], [address] CO2 Normal 21.0-32.0 [facility] Comment on above: Result Comment: Canc elled via OM: Order cancelled - Patient discharged Performed By: #### L 100.0100, L500.2500 #### [facility] [address] [place], [address] CREAT,SERUM Normal 0.70-1.20 [facility] Comment on above: Result Comment: Canc elled via OM: Order cancelled - Patient discharged Performed By: #### L 100.0100, L500.2500 #### [facility] [address] [place], [address] eGFR Normal >60 [facility] Comment on above: Result Comment: Canc elled via OM: Order cancelled - Patient discharged Performed By: #### L 100.0100, L500.2500 #### [facility] [address] [place], [address] GAP Normal 5-15 [facility] Comment on above: Result Comment: Canc elled via OM: Order cancelled - Patient discharged Performed By: #### L 100.0100, L500.2500 #### [facility] [address] [place], [address] GLU Normal 70-99 [facility] Comment on above: Result Comment: Canc elled via OM: Order cancelled - Patient discharged Performed By: #### L 100.0100, L500.2500 #### [facility] [address] [place], [address] Potassium Normal 3.3-5.1 [facility] Comment on above: Result Comment: Canc elled via OM: Order cancelled - Patient discharged Performed By: #### L 100.0100, L500.2500 #### [facility] [address] [place], [address] Basic Metabolic Profile (BMP) Normal 133-145 [facility] Comment on above: Result Comment: Canc elled via OM: Order cancelled - Patient discharged Performed By: #### L 100.0100, L500.2500 #### [facility] [address] [place], [address] Basophil percentageOrdered B y: Garfield Yo on 03-05-2025 Basophils/100 WBC (Bld) 0.5 % 0-1 [facility] CBC W/Diff, Automatedon 02-17 Absolute Lymph 1.57 X10 3/uL Normal 0.83-4.51 [facility] Comment on above: Performed By: #### L 100.0600 #### [facility] [address] [place], [address] Absolute Neut 7.3 X10 3/uL Normal 2.0-7.7 [facility] Comment on above: Performed By: #### L 100.0600 #### [facility] [address] [place], [address] Basophils/100 WBC (Bld) 0.5 % Normal 0-1 [facility] Comment on above: Performed By: #### L 100.0600 #### [facility] [address] [place], [address] Eosinophils/100 WBC (Bld) 3.5 % Normal 0-5 [facility] Comment on above: Performed By: #### L 100.0600 #### [facility] [address] [place], [address] Erythrocyte distribution width (RBC) [Ratio] 13.2 % Normal 11.6-14.6 [facility] Comment on above: Performed By: #### L 100.0600 #### [facility] [address] [place], [address] Hematocrit (Bld) [Volume fraction] 25.8 % Low 37-47 [facility] Comment on above: Performed By: #### L 100.0600 #### [facility] [address] [place], [address] Hemoglobin (Bld) [Mass/Vol] 9.0 g/dL Low 12.0-15.0 [facility] Comment on above: Performed By: #### L 100.0600 #### [facility] [address] [place], [address] IG% 1.100 High 0.0-0.9 [facility] Comment on above: Result Comment: IG% - Immature Granulocytes (promyelocytes, myelocytes and metamyelocytes) > 1% indicates that a LEFT SHIFT is Present. Performed By: #### L 100.0600 #### [facility] [address] [place], [address] Lymphocytes/100 WBC (Bld) 15.9 % Low 19-41 [facility] Comment on above: Performed By: #### L 100.0600 #### [facility] [address] [place], [address] MCH (RBC) [Entitic mass] 30.7 pg Normal 27.0-32.0 [facility] Comment on above: Performed By: #### L 100.0600 #### [facility] [address] [place], [address] MCHC (RBC) [Mass/Vol] 34.9 g/dL Normal 32-36 [facility] Comment on above: Performed By: #### L 100.0600 #### [facility] [address] [place], [address] MCV (RBC) [Entitic vol] 88.1 fL Normal 81-99 [facility] Comment on above: Performed By: #### L 100.0600 #### [facility] [address] [place], [address] Monocytes/100 WBC (Bld) 5.6 % Normal 0-10 [facility] Comment on above: Performed By: #### L 100.0600 #### [facility] [address] [place], [address] Neutrophils/100 WBC (Bld) 73.4 % High 47-70 [facility] Comment on above: Performed By: #### L 100.0600 #### [facility] [address] [place], [address] Nucleated RBC (Bld) [#/Vol] 0 10*3/uL Normal 0-5 [facility] Comment on above: Performed By: #### L 100.0600 #### [facility] [address] [place], [address] Platelet mean volume (Bld) [Entitic vol] 10.3 fL Normal 6.2-12.0 [facility] Comment on above: Performed By: #### L 100.0600 #### [facility] [address] [place], [address] Platelets (Bld) [#/Vol] 195 10*3/uL Normal 150-450 [facility] Comment on above: Performed By: #### L 100.0600 #### [facility] [address] [place], [address] RBC (Bld) [#/Vol] 2.93 10*6/uL Low 4.2-5.4 [facility] Comment on above: Performed By: #### L 100.0600 #### [facility] [address] [place], [address] RDW SD 42.1 fl Normal 35.1-43.9 [facility] Comment on above: Performed By: #### L 100.0600 #### [facility] [address] [place], [address] WBC (Bld) [#/Vol] 9.9 10*3/uL Normal 4.4-11.0 [facility] Comment on above: Performed By: #### L 100.0600 #### [facility] [address] [place], [address] Absolute Neut Normal 2.0-7.7 [facility] Comment on above: Result Comment: Canc elled via OM: Order cancelled - Patient discharged Performed By: #### L 100.0100, L500.2500 #### [facility] [address] [place], [address] HCT Normal 37-47 [facility] Comment on above: Result Comment: Canc elled via OM: Order cancelled - Patient discharged Performed By: #### L 100.0100, L500.2500 #### [facility] [address] [place], [address] HGB Normal 12.0-15.0 [facility] Comment on above: Result Comment: Canc elled via OM: Order cancelled - Patient discharged Performed By: #### L 100.0100, L500.2500 #### [facility] [address] [place], [address] MCH Normal 27.0-32.0 [facility] Comment on above: Result Comment: Canc elled via OM: Order cancelled - Patient discharged Performed By: #### L 100.0100, L500.2500 #### [facility] [address] [place], [address] MCHC Normal 32-36 [facility] Comment on above: Result Comment: Canc elled via OM: Order cancelled - Patient discharged Performed By: #### L 100.0100, L500.2500 #### [facility] [address] [place], [address] MCV Normal 81-99 [facility] Comment on above: Result Comment: Canc elled via OM: Order cancelled - Patient discharged Performed By: #### L 100.0100, L500.2500 #### [facility] [address] [place], [address] NEUT% Normal 47-70 [facility] Comment on above: Result Comment: Canc elled via OM: Order cancelled - Patient discharged Performed By: #### L 100.0100, L500.2500 #### [facility] [address] [place], [address] PLT Normal 150-450 [facility] Comment on above: Result Comment: Canc elled via OM: Order cancelled - Patient discharged Performed By: #### L 100.0100, L500.2500 #### [facility] [address] [place], [address] RBC Normal 4.2-5.4 [facility] Comment on above: Result Comment: Canc elled via OM: Order cancelled - Patient discharged Performed By: #### L 100.0100, L500.2500 #### [facility] [address] [place], [address] RDW CV Normal 11.6-14.6 [facility] Comment on above: Result Comment: Canc elled via OM: Order cancelled - Patient discharged Performed By: #### L 100.0100, L500.2500 #### [facility] [address] [place], [address] RDW SD Normal 35.1-43.9 [facility] Comment on above: Result Comment: Canc elled via OM: Order cancelled - Patient discharged Performed By: #### L 100.0100, L500.2500 #### [facility] [address] [place], [place], [address] WBC Normal 4.4-11.0 [facility] Comment on above: Result Comment: Canc elled via OM: Order cancelled - Patient discharged Performed By: #### L 100.0100, L500.2500 #### [facility] [address] [place], [address] Carbon dioxide, total [Moles /volume] in Central venous bloodOrdered By: Garfield Yo on 03-05-2025 CO2 [Moles/Vol] 27.5 mmol/L 21.0-32.0 [facility] Chloride assayOrdered By: Kristopher Yo on 03-05-2025 Chloride [Moles/Vol] 102 mmol/L 98-[address] [facility] Eosinophil percentageOrdered By: Garfield Yo on 03-05-2025 Eosinophils/100 WBC (Bld) 3.5 % 0-5 [facility] Erythrocyte distribution wid th (RBC) [Ratio]Ordered By: Garfield Yo on 03-05-2025 Erythrocyte distribution width (RBC) [Entitic vol] 42.1 fL 35.1-43.9 [facility] Erythrocyte distribution wid th ratioOrdered By: Garfield Yo 03-05-2025 Erythrocyte distribution width (RBC) [Ratio] 13.2 % 11.6-14.6 [facility] Estimation of creatinine winston aranceOrdered By: Garfield Yo on 03-05-2025 Estimated Creatinine Clearance Calc 41.90 ml/min Low 50-250 [facility] GFR/1.73 sq M.predicted arti g non-blacks MDRD (S/P/Bld) [Vol rate/Area]Ordered By: Garfield Yo on 03-05-2025 Estimated GFR (MDRD) Non-Af Amer 74 >60 [facility] Comment on above: mL/min/1.73m2 CKD-EP I Creatinine Equation (2020) Immature granulocytes/100 WB C Auto (Bld)Ordered By: Garfield Yo on 03-05-2025 Immature granulocytes/100 WBC (Bld) 1.100 % High 0.0-0.9 [facility] Comment on above: IG% - Immature Granu locytes (promyelocytes, myelocytes and metamyelocytes) > 1% indicates that a LEFT SHIFT is Present. Lymphocytes Auto (Unsp spec) [#/Vol]Ordered By: Garfield Yo on 03-05-2025 Lymphocytes (Bld) [#/Vol] 1.57 10*3/uL 0.83-4.51 [facility] Lymphocytes/100 WBC Auto (Un sp spec)Ordered By: Garfield Yo on 03-05-2025 Lymphocytes/100 WBC (Bld) 15.9 % Low 19-41 [facility] MCV (mean corpuscular volume ) determinationOrdered By: Garfield Yo on 03-05-2025 MCV (RBC) [Entitic vol] 88.1 fL 81-99 [facility] Mean corpuscular hemoglobin (MCH) determinationOrdered By: Garfield Yo on 03-05-2025 MCH (RBC) [Entitic mass] 30.7 pg 27.0-32.0 [facility] Mean corpuscular hemoglobin concentration (MCHC) determinationOrdered By: Garfield Yo on 03-05-2025 MCHC (RBC) [Mass/Vol] 34.9 g/dL 32-36 [facility] Mean platelet volume determi nationOrdered By: Garfield Yo on 03-05-2025 Platelet mean volume (Bld) [Entitic vol] 10.3 fL 6.2-12.0 [facility] Monocyte percentageOrdered B y: Garfield Yo on 03-05-2025 Monocytes/100 WBC (Bld) 5.6 % 0-10 [facility] Neutrophil percentageOrdered By: Garfield Yo on 03-05-2025 Neutrophils/100 WBC (Bld) 73.4 % High 47-70 [facility] Nucleated red blood cell per centageOrdered By: Garfield Yo on 03-05-2025 Nucleated RBC/100 WBC (Bld) [Ratio] 0 % 0-5 [facility] Platelet countOrdered By: Kristopher Yo on 03-05-2025 Platelets (Bld) [#/Vol] 195 10*3/uL 150-450 [facility] Potassium (Unsp spec) [Mass/ Vol]Ordered By: Garfield Yo on 03-05-2025 Potassium [Moles/Vol] 3.3 mmol/L 3.3-5.1 [facility] RBC Auto (Bld) [#/Vol]Ordere d By: Garfield Yo on 03-05-2025 RBC (Bld) [#/Vol] 2.93 10*6/uL Low 4.2-5.4 [facility] Serum creatinine measurement (mass/volume)Ordered By: Garfield Yo on 03-05-2025 Creatinine [Mass/Vol] 0.78 mg/dL 0.70-1.20 [facility] Serum glucose measurement (m ass/volume)Ordered By: Garfield Yo on 03-05-2025 Glucose [Mass/Vol] 100 mg/dL High 70-99 [facility] Serum or plasma calcium thomas urement (mass/volume)Ordered By: Garfield Yo on 03-05-2025 Calcium [Mass/Vol] 8.5 mg/dL 7.6-11.0 [facility] Serum or plasma urea nitroge n measurement (mass/volume)Ordered By: Garfield Yo on 03-05-2025 Urea nitrogen [Mass/Vol] 13 mg/dL 4-19 [facility] Sodium levelOrdered By: Garfield Yo on 03-05-2025 Sodium [Moles/Vol] 140 mmol/L 133-145 [facility] White blood cell (WBC) count Ordered By: Garfield Yo on 03-05-2025 WBC (Bld) [#/Vol] 9.9 10*3/uL 4.4-11.0 [facility] Absolute lymphocyte countOrd ered By: Allison Tran on 03-04-2025 Lymphocytes Auto (Unsp spec) [#/Vol] 1.35 10*3/uL 0.83-4.51 [facility] Absolute neutrophil countOrd ered By: Allison Tran on 03-04-2025 Neutrophils (Bld) [#/Vol] 9.0 10*3/uL High 2.0-7.7 [facility] Anion gap in Serum or Plasma Ordered By: Allison Tran on 03-04-2025 Anion gap [Moles/Vol] 10 mmol/L 5-15 [facility] Automated lymphocyte count a s percentage of total leukocytesOrdered By: Allison Tran on 03-04-2025 Lymphocytes/100 WBC Auto (Unsp spec) 11.6 % Low 19-41 [facility] BUN/creatinine ratioOrdered By: Allison Tran on 03-04-2025 Urea nitrogen/Creatinine [Mass ratio] 18.5 mg/mg 10- [facility] Basic Metabolic Profile (BMP )on 03-04-2025 BUN/CRE 18.5 RATIO Normal 10-20 [facility] Comment on above: Performed By: #### L 500.2500, L100.0100 #### [facility] [address] [place], [address] Calcium [Mass/Vol] 8.4 mg/dL Normal 7.6-11.0 [facility] Comment on above: Performed By: #### L 500.2500, L100.0100 #### [facility] [address] [place], [address] Chloride [Moles/Vol] 103 mmol/L Normal 98-[address] [facility] Comment on above: Performed By: #### L 500.2500, L100.0100 #### [facility] [address] [place], [address] CO2 [Moles/Vol] 26.0 mmol/L Normal 21.0-32.0 [facility] Comment on above: Performed By: #### L 500.2500, L100.0100 #### [facility] [address] [place], [address] Creatinine [Mass/Vol] 0.76 mg/dL Normal 0.70-1.20 [facility] Comment on above: Performed By: #### L 500.2500, L100.0100 #### [facility] [address] [place], [address] ECRCL 41.63 ml/min Low 50-250 [facility] Comment on above: Performed By: #### L 500.2500, L100.0100 #### [facility] [address] [place], [address] GAP 10 Normal 5-15 [facility] Comment on above: Performed By: #### L 500.2500, L100.0100 #### [facility] [address] [place], [address] GFR/1.73 sq M.predicted among non-blacks MDRD (S/P/Bld) [Vol rate/Area] 77 mL/min/{1.73_m2} Normal >60 [facility] Comment on above: Result Comment: mL/m in/1.73m2 CKD-EPI Creatinine Equation (2020) Performed By: #### L 500.2500, L100.0100 #### [facility] [address] [place], [address] Glucose [Mass/Vol] 112 mg/dL High 70-99 [facility] Comment on above: Performed By: #### L 500.2500, L100.0100 #### [facility] [address] [place], [address] Potassium [Moles/Vol] 3.7 mmol/L Normal 3.3-5.1 [facility] Comment on above: Performed By: #### L 500.2500, L100.0100 #### [facility] [address] [place], [address] Sodium [Moles/Vol] 139 mmol/L Normal 133-145 [facility] Comment on above: Performed By: #### L 500.2500, L100.0100 #### [facility] [address] [place], [address] Urea nitrogen [Mass/Vol] 14 mg/dL Normal 4-19 [facility] Comment on above: Performed By: #### L 500.2500, L100.0100 #### [facility] [address] [place], [address] Basophil percentageOrdered B y: Allison Tran on 03-04-2025 Basophils/100 WBC (Bld) 0.6 % 0-1 [facility] CBC W/Diff, Automatedon 04-11 24-2024 Absolute Lymph 1.35 X10 3/uL Normal 0.83-4.51 [facility] Comment on above: Performed By: #### L 500.2500, L100.0100 #### [facility] [address] [place], [address] Absolute Neut 9.0 X10 3/uL High 2.0-7.7 [facility] Comment on above: Performed By: #### L 500.2500, L100.0100 #### [facility] [address] [place], [address] Basophils/100 WBC (Bld) 0.6 % Normal 0-1 [facility] Comment on above: Performed By: #### L 500.2500, L100.0100 #### [facility] [address] [place], [address] Eosinophils/100 WBC (Bld) 1.8 % Normal 0-5 [facility] Comment on above: Performed By: #### L 500.2500, L100.0100 #### [facility] [address] [place], [address] Erythrocyte distribution width (RBC) [Ratio] 13.2 % Normal 11.6-14.6 [facility] Comment on above: Performed By: #### L 500.2500, L100.0100 #### [facility] [address] [place], [address] Hematocrit (Bld) [Volume fraction] 24.6 % Low 37-47 [facility] Comment on above: Performed By: #### L 500.2500, L100.0100 #### [facility] [address] [place], [address] Hemoglobin (Bld) [Mass/Vol] 8.5 g/dL Low 12.0-15.0 [facility] Comment on above: Performed By: #### L 500.2500, L100.0100 #### [facility] [address] [place], [address] IG% 0.900 Normal 0.0-0.9 [facility] Comment on above: Result Comment: IG% - Immature Granulocytes (promyelocytes, myelocytes and metamyelocytes) > 1% indicates that a LEFT SHIFT is Present. Performed By: #### L 500.2500, L100.0100 #### [facility] [address] [place], [address] Lymphocytes/100 WBC (Bld) 11.6 % Low 19-41 [facility] Comment on above: Performed By: #### L 500.2500, L100.0100 #### [facility] [address] [place], [address] MCH (RBC) [Entitic mass] 29.9 pg Normal 27.0-32.0 [facility] Comment on above: Performed By: #### L 500.2500, L100.0100 #### [facility] [address] [place], [address] MCHC (RBC) [Mass/Vol] 34.6 g/dL Normal 32-36 [facility] Comment on above: Performed By: #### L 500.2500, L100.0100 #### [facility] [address] [place], [address] MCV (RBC) [Entitic vol] 86.6 fL Normal 81-99 [facility] Comment on above: Performed By: #### L 500.2500, L100.0100 #### [facility] [address] [place], [address] Monocytes/100 WBC (Bld) 7.6 % Normal 0-10 [facility] Comment on above: Performed By: #### L 500.2500, L100.0100 #### [facility] [address] [place], [address] Neutrophils/100 WBC (Bld) 77.5 % High 47-70 [facility] Comment on above: Performed By: #### L 500.2500, L100.0100 #### [facility] [address] [place], [address] Nucleated RBC (Bld) [#/Vol] 0 10*3/uL Normal 0-5 [facility] Comment on above: Performed By: #### L 500.2500, L100.0100 #### [facility] [address] [place], [address] Platelet mean volume (Bld) [Entitic vol] 10.3 fL Normal 6.2-12.0 [facility] Comment on above: Performed By: #### L 500.2500, L100.0100 #### [facility] [address] [place], [address] Platelets (Bld) [#/Vol] 177 10*3/uL Normal 150-450 [facility] Comment on above: Performed By: #### L 500.2500, L100.0100 #### [facility] [address] [place], [address] RBC (Bld) [#/Vol] 2.84 10*6/uL Low 4.2-5.4 [facility] Comment on above: Performed By: #### L 500.2500, L100.0100 #### [facility] [address] [place], [address] RDW SD 41.2 fl Normal 35.1-43.9 [facility] Comment on above: Performed By: #### L 500.2500, L100.0100 #### [facility] [address] [place], [address] WBC (Bld) [#/Vol] 11.6 10*3/uL High 4.4-11.0 [facility] Comment on above: Performed By: #### L 500.2500, L100.0100 #### [facility] [address] [place], [address] Carbon dioxide, total [Moles /volume] in Central venous bloodOrdered By: Allison Tran on 03-04-2025 CO2 [Moles/Vol] 26.0 mmol/L 21.0-32.0 [facility] Chloride assayOrdered By: Na na Chelsea on 03-04-2025 Chloride [Moles/Vol] 103 mmol/L 98-[address] [facility] Eosinophil percentageOrdered By: Allison Tran on 03-04-2025 Eosinophils/100 WBC (Bld) 1.8 % 0-5 [facility] Erythrocyte distribution wid th (RBC) [Ratio]Ordered By: Allison Tran on 03-04-2025 Erythrocyte distribution width (RBC) [Entitic vol] 41.2 fL 35.1-43.9 [facility] Erythrocyte distribution wid th ratioOrdered By: [facility] 03-04-2025 Erythrocyte distribution width (RBC) [Ratio] 13.2 % 11.6-14.6 [facility] Erythrocyte distribution wid th standard deviationOrdered By: [facility] on 03-04-2025 Erythrocyte distribution width (RBC) [Ratio] 41.2 fl 35.1-43.9 [facility] Estimation of creatinine winston aranceOrdered By: Allison Tran on 03-04-2025 Estimated Creatinine Clearance Calc 41.63 ml/min Low 50-250 [facility] GFR/1.73 sq M.predicted arti g non-blacks MDRD (S/P/Bld) [Vol rate/Area]Ordered By: Allison Tran 03-04-2025 Estimated GFR (MDRD) Non-Af Amer 77 >60 [facility] Comment on above: mL/min/1.73m2 CKD-EP I Creatinine Equation (2020) Glomerular filtration rate ( GFR) estimation/1.73 sq m using serum, plasma, or whole bOrdered By: Allison Tran on 04-16-2025 GFR/1.73 sq M.predicted among non-blacks MDRD (S/P/Bld) [Vol rate/Area] 77 mL/min/{1.73_m2} >60 [facility] Comment on above: mL/min/1.73m2 CKD-EP I Creatinine Equation (2020) Hematocrit Auto (Bld) [Volum e fraction]Ordered By: Allison Tran on 03-04-2025 Hematocrit (Bld) [Volume fraction] 24.6 % Low 37-47 [facility] Hemoglobin measurementOrdere d By: Allison Tran on 03-04-2025 Hemoglobin (Bld) [Mass/Vol] 8.5 g/dL Low 12.0-15.0 [facility] Immature granulocytes/100 WB C Auto (Bld)Ordered By: Allison Tran on 03-04-2025 Immature granulocytes/100 WBC (Bld) 0.900 % 0.0-0.9 [facility] Comment on above: IG% - Immature Granu locytes (promyelocytes, myelocytes and metamyelocytes) > 1% indicates that a LEFT SHIFT is Present. Lymphocytes Auto (Unsp spec) [#/Vol]Ordered By: Allison Tran 03-04-2025 Lymphocytes (Bld) [#/Vol] 1.35 10*3/uL 0.83-4.51 [facility] Lymphocytes/100 WBC Auto (Un sp spec)Ordered By: Allison Tran 03-04-2025 Lymphocytes/100 WBC (Bld) 11.6 % Low 19-41 [facility] MCV (mean corpuscular volume ) determinationOrdered By: Allison Tran 03-04-2025 MCV (RBC) [Entitic vol] 86.6 fL 81-99 [facility] Mean corpuscular hemoglobin (MCH) determinationOrdered By: Allison Tran 03-04-2025 MCH (RBC) [Entitic mass] 29.9 pg 27.0-32.0 [facility] Mean corpuscular hemoglobin concentration (MCHC) determinationOrdered By: Allison Tran 03-04-2025 MCHC (RBC) [Mass/Vol] 34.6 g/dL 32-36 [facility] Mean platelet volume determi nationOrdered By: Allison Tran on 03-04-2025 Platelet mean volume (Bld) [Entitic vol] 10.3 fL 6.2-12.0 [facility] Monocyte percentageOrdered B y: Allison Chelsea on 03-04-2025 Monocytes/100 WBC (Bld) 7.6 % 0-10 [facility] Neutrophil percentageOrdered By: Allison Tran on 03-04-2025 Neutrophils/100 WBC (Bld) 77.5 % High 47-70 [facility] Nucleated red blood cell per centageOrdered By: Allison Tran on 03-04-2025 Nucleated RBC/100 WBC (Bld) [Ratio] 0 % 0-5 [facility] Platelet countOrdered By: Jessica Tran on 03-04-2025 Platelets (Bld) [#/Vol] 177 10*3/uL 150-450 [facility] Potassium (Unsp spec) [Mass/ Vol]Ordered By: Allison Tran on 03-04-2025 Potassium [Moles/Vol] 3.7 mmol/L 3.3-5.1 [facility] Potassium measurement (mass/ volume)Ordered By: Allison Tran on 03-04-2025 Potassium (Unsp spec) [Mass/Vol] 3.7 mmol/L 3.3-5.1 [facility] RBC Auto (Bld) [#/Vol]Ordere d By: Allison Tran on 03-04-2025 RBC (Bld) [#/Vol] 2.84 10*6/uL Low 4.2-5.4 [facility] Serum creatinine measurement (mass/volume)Ordered By: Allison Tran on 03-04-2025 Creatinine [Mass/Vol] 0.76 mg/dL 0.70-1.20 [facility] Serum glucose measurement (m ass/volume)Ordered By: Allison Tran on 03-04-2025 Glucose [Mass/Vol] 112 mg/dL High 70-99 [facility] Serum or plasma calcium thomas urement (mass/volume)Ordered By: Allison Tran on 03-04-2025 Calcium [Mass/Vol] 8.4 mg/dL 7.6-11.0 [facility] Serum or plasma urea nitroge n measurement (mass/volume)Ordered By: Allisonjitendra Tran on 03-04-2025 Urea nitrogen [Mass/Vol] 14 mg/dL 4-19 [facility] Sodium levelOrdered By: Allisonjitendra Tran on 03-04-2025 Sodium [Moles/Vol] 139 mmol/L 133-145 [facility] White blood cell (WBC) count Ordered By: Allisonjitendra Tran on 03-04-2025 WBC (Bld) [#/Vol] 11.6 10*3/uL High 4.4-11.0 [facility] Basic Metabolic Profile (BMP )on 03-03-2025 BUN/CRE 13.6 RATIO Normal 10-20 [facility] Comment on above: Performed By: #### L 500.2500, L100.0100 #### [facility] [address] [place], [address] Calcium [Mass/Vol] 8.3 mg/dL Normal 7.6-11.0 [facility] Comment on above: Performed By: #### L 500.2500, L100.0100 #### [facility] [address] [place], [address] Chloride [Moles/Vol] 102 mmol/L Normal 98-[address] [facility] Comment on above: Performed By: #### L 500.2500, L100.0100 #### [facility] [address] [place], [address] CO2 [Moles/Vol] 25.7 mmol/L Normal 21.0-32.0 [facility] Comment on above: Performed By: #### L 500.2500, L100.0100 #### [facility] [address] [place], [address] Creatinine [Mass/Vol] 0.94 mg/dL Normal 0.70-1.20 [facility] Comment on above: Performed By: #### L 500.2500, L100.0100 #### [facility] [address] [place], [address] ECRCL 35.43 ml/min Low 50-250 [facility] Comment on above: Performed By: #### L 500.2500, L100.0100 #### [facility] [address] [place], [address] GAP 10 Normal 5-15 [facility] Comment on above: Performed By: #### L 500.2500, L100.0100 #### [facility] [address] [place], [address] GFR/1.73 sq M.predicted among non-blacks MDRD (S/P/Bld) [Vol rate/Area] 60 mL/min/{1.73_m2} Normal >60 [facility] Comment on above: Result Comment: mL/m in/1.73m2 CKD-EPI Creatinine Equation (2020) Performed By: #### L 500.2500, L100.0100 #### [facility] [address] [place], [address] Glucose [Mass/Vol] 102 mg/dL High 70-99 [facility] Comment on above: Performed By: #### L 500.2500, L100.0100 #### [facility] [address] [place], [address] Potassium [Moles/Vol] 3.9 mmol/L Normal 3.3-5.1 [facility] Comment on above: Result Comment: Hemo lysis present, Results??could be affected. ?? Performed By: #### L 500.2500, L100.0100 #### [facility] [address] [place], [address] Sodium [Moles/Vol] 137 mmol/L Normal 133-145 [facility] Comment on above: Performed By: #### L 500.2500, L100.0100 #### [facility] [address] [place], [address] Urea nitrogen [Mass/Vol] 13 mg/dL Normal 4-19 [facility] Comment on above: Performed By: #### L 500.2500, L100.0100 #### [facility] [address] [place], [address] CBC W/Diff, Automatedon 02-17-2024 Absolute Lymph 1.61 X10 3/uL Normal 0.83-4.51 [facility] Comment on above: Performed By: #### L 500.2500, L100.0100 #### [facility] [address] [place], [address] Absolute Neut 9.5 X10 3/uL High 2.0-7.7 [facility] Comment on above: Performed By: #### L 500.2500, L100.0100 #### [facility] [address] [place], [address] Basophils/100 WBC (Bld) 0.5 % Normal 0-1 [facility] Comment on above: Performed By: #### L 500.2500, L100.0100 #### [facility] [address] [place], [address] Eosinophils/100 WBC (Bld) 1.9 % Normal 0-5 [facility] Comment on above: Performed By: #### L 500.2500, L100.0100 #### [facility] [address] [place], [address] Erythrocyte distribution width (RBC) [Ratio] 13.2 % Normal 11.6-14.6 [facility] Comment on above: Performed By: #### L 500.2500, L100.0100 #### [facility] [address] [place], [address] Hematocrit (Bld) [Volume fraction] 25.5 % Low 37-47 [facility] Comment on above: Performed By: #### L 500.2500, L100.0100 #### [facility] [address] [place], [address] Hemoglobin (Bld) [Mass/Vol] 8.7 g/dL Low 12.0-15.0 [facility] Comment on above: Performed By: #### L 500.2500, L100.0100 #### [facility] [address] [place], [address] IG% 0.800 Normal 0.0-0.9 [facility] Comment on above: Result Comment: IG% - Immature Granulocytes (promyelocytes, myelocytes and metamyelocytes) > 1% indicates that a LEFT SHIFT is Present. Performed By: #### L 500.2500, L100.0100 #### [facility] [address] [place], [address] Lymphocytes/100 WBC (Bld) 12.6 % Low 19-41 [facility] Comment on above: Performed By: #### L 500.2500, L100.0100 #### [facility] [address] [place], [address] MCH (RBC) [Entitic mass] 30.2 pg Normal 27.0-32.0 [facility] Comment on above: Performed By: #### L 500.2500, L100.0100 #### [facility] [address] [place], [address] MCHC (RBC) [Mass/Vol] 34.1 g/dL Normal 32-36 [facility] Comment on above: Performed By: #### L 500.2500, L100.0100 #### [facility] [address] [place], [address] MCV (RBC) [Entitic vol] 88.5 fL Normal 81-99 [facility] Comment on above: Performed By: #### L 500.2500, L100.0100 #### [facility] [address] [place], [address] Monocytes/100 WBC (Bld) 9.6 % Normal 0-10 [facility] Comment on above: Performed By: #### L 500.2500, L100.0100 #### [facility] [address] [place], [address] Neutrophils/100 WBC (Bld) 74.6 % High 47-70 [facility] Comment on above: Performed By: #### L 500.2500, L100.0100 #### [facility] [address] [place], [address] Nucleated RBC (Bld) [#/Vol] 0 10*3/uL Normal 0-5 [facility] Comment on above: Performed By: #### L 500.2500, L100.0100 #### [facility] [address] [place], [address] Platelet mean volume (Bld) [Entitic vol] 10.4 fL Normal 6.2-12.0 [facility] Comment on above: Performed By: #### L 500.2500, L100.0100 #### [facility] [address] [place], [address] Platelets (Bld) [#/Vol] 171 10*3/uL Normal 150-450 [facility] Comment on above: Performed By: #### L 500.2500, L100.0100 #### [facility] [address] [place], [address] RBC (Bld) [#/Vol] 2.88 10*6/uL Low 4.2-5.4 [facility] Comment on above: Performed By: #### L 500.2500, L100.0100 #### [facility] [address] [place], [address] RDW SD 42.8 fl Normal 35.1-43.9 [facility] Comment on above: Performed By: #### L 500.2500, L100.0100 #### [facility] [address] [place], [address] WBC (Bld) [#/Vol] 12.8 10*3/uL High 4.4-11.0 [facility] Comment on above: Performed By: #### L 500.2500, L100.0100 #### [facility] [address] [place], [address] MR/[id number] 03-03-2025 MR/POSTOPAN2 [facility] Medical Records Department [address] [place] [address] Anesthesia Postop Eval II 03/03/25 0905 MR#: [id number] Acct: [id number] Name: MICHAELA BRANDT Rep #: [id number] : 1940 84 From: Jim Vidales MD PCP: Dr. Dillan Santiago MD Status:ADM IN Y Race: C [place] [facility] [id number] Anesthesia Postop Eval I Sum Postop Eval Completion status Anesthesia document: Postop Eval 1 completed: Yes Anesthesia Postop Eval I Summary Anesthesia Postop Eval I Summary: Anesthesia Postop Eval I: Assessment Summary Airway patent Yes 03/02/25 13:00 [employer].JDEF Spontaneous unlabored Yes 03/02/25 13:00 [employer] SCI[employer].JDEF respirations Mental status Asleep 03/02/25 13:00 [employer].JDEF nausea No 03/02/25 13:00 [employer] SCI[employer].JDEF Vomiting No 03/02/25 13:00 [employer] SCIENTIST.JDEF Anesthesia Postop Eval I: Fluid Summary Crystalloid volume administer 600 03/02/25 13:00 AQUATIC SCIENTIST.JDEF (ml) Colloids volume administered ( ml) Blood Product volume administered (ml) Total IV fluid infused 600 03/02/25 13:00 A[employer]ATIC SCIENTIST.JDEF Anesthesia Postop Eval I: Summary Notes Anesthesia Complication No 03/02/25 13:00 AQUATIC SCIENTIST.JDEF Anesthesia Complication Comment: Post-operative progress note Anesthesia: Postop Eval II Evaluation Mental status: Awake and Calm Pain Level: 2 nausea: No Vomiting: No Complications Anesthesia Complication: No 03/03/25 0905 Date Jim Salmeronigner Signature: Date CC: Signed Normal [facility] Bilirubin, totalOrdered By: Roro Long on 03-02-2025 Bilirubin [Mass/Vol] 1.32 mg/dL High 0.00-1.[address] [facility] CBC W/Diff, Automatedon 02-17 Absolute Lymph 1.50 X10 3/uL Normal 0.83-4.51 [facility] Comment on above: Performed By: #### L 100.0100, L500.2500 #### [facility] [address] [place], [address] Absolute Neut 9.9 X10 3/uL High 2.0-7.7 [facility] Comment on above: Performed By: #### L 100.0100, L500.2500 #### [facility] [address] [place], [address] Basophils/100 WBC (Bld) 0.4 % Normal 0-1 [facility] Comment on above: Performed By: #### L 100.0100, L500.2500 #### [facility] [address] [place], [address] Eosinophils/100 WBC (Bld) 0.9 % Normal 0-5 [facility] Comment on above: Performed By: #### L 100.0100, L500.2500 #### [facility] [address] [place], [address] Erythrocyte distribution width (RBC) [Ratio] 13.2 % Normal 11.6-14.6 [facility] Comment on above: Performed By: #### L 100.0100, L500.2500 #### [facility] [address] [place], [address] Hematocrit (Bld) [Volume fraction] 33.7 % Low 37-47 [facility] Comment on above: Performed By: #### L 100.0100, L500.2500 #### [facility] [address] [place], [address] Hemoglobin (Bld) [Mass/Vol] 11.6 g/dL Low 12.0-15.0 [facility] Comment on above: Performed By: #### L 100.0100, L500.2500 #### [facility] [address] [place], [address] IG% 0.900 Normal 0.0-0.9 [facility] Comment on above: Result Comment: IG% - Immature Granulocytes (promyelocytes, myelocytes and metamyelocytes) > 1% indicates that a LEFT SHIFT is Present. Performed By: #### L 100.0100, L500.2500 #### [facility] [address] [place], [address] Lymphocytes/100 WBC (Bld) 11.6 % Low 19-41 [facility] Comment on above: Performed By: #### L 100.0100, L500.2500 #### [facility] [address] [place], [address] MCH (RBC) [Entitic mass] 30.5 pg Normal 27.0-32.0 [facility] Comment on above: Performed By: #### L 100.0100, L500.2500 #### [facility] [address] [place], [address] MCHC (RBC) [Mass/Vol] 34.4 g/dL Normal 32-36 [facility] Comment on above: Performed By: #### L 100.0100, L500.2500 #### [facility] [address] [place], [address] MCV (RBC) [Entitic vol] 88.7 fL Normal 81-99 [facility] Comment on above: Performed By: #### L 100.0100, L500.2500 #### [facility] [address] [place], [address] Monocytes/100 WBC (Bld) 9.5 % Normal 0-10 [facility] Comment on above: Performed By: #### L 100.0100, L500.2500 #### [facility] [address] [place], [address] Neutrophils/100 WBC (Bld) 76.7 % High 47-70 [facility] Comment on above: Performed By: #### L 100.0100, L500.2500 #### [facility] [address] [place], [address] Nucleated RBC (Bld) [#/Vol] 0 10*3/uL Normal 0-5 [facility] Comment on above: Performed By: #### L 100.0100, L500.2500 #### [facility] [address] [place], [address] Platelet mean volume (Bld) [Entitic vol] 9.5 fL Normal 6.2-12.0 [facility] Comment on above: Performed By: #### L 100.0100, L500.2500 #### [facility] [address] [place], [address] Platelets (Bld) [#/Vol] 203 10*3/uL Normal 150-450 [facility] Comment on above: Performed By: #### L 100.0100, L500.2500 #### [facility] [address] [place], [address] RBC (Bld) [#/Vol] 3.80 10*6/uL Low 4.2-5.4 [facility] Comment on above: Performed By: #### L 100.0100, L500.2500 #### [facility] [address] [place], [address] RDW SD 42.8 fl Normal 35.1-43.9 [facility] Comment on above: Performed By: #### L 100.0100, L500.2500 #### [facility] [address] [place], [address] WBC (Bld) [#/Vol] 12.9 10*3/uL High 4.4-11.0 [facility] Comment on above: Performed By: #### L 100.0100, L500.2500 #### [facility] [address] [place], [address] Comprehensive Metabolic Prof ilon 03-02-2025 Albumin [Mass/Vol] 3.7 g/dL Normal 3.4-4.8 [facility] Comment on above: Performed By: #### L 100.0100, L500.2500 #### [facility] [address] [place], [address] Albumin/Globulin [Mass ratio] 1.6 {ratio} Normal 0.9-2.4 [facility] Comment on above: Performed By: #### L 100.0100, L500.2500 #### [facility] [address] [place], [address] ALK PHOS 55 U/L Normal 35-104 [facility] Comment on above: Performed By: #### L 100.0100, L500.2500 #### [facility] [address] [place], [address] ALT [Catalytic activity/Vol] 11 U/L Normal <=34 [facility] Comment on above: Performed By: #### L 100.0100, L500.2500 #### [facility] [address] [place], [address] AST [Catalytic activity/Vol] 27 U/L Normal <=31 [facility] Comment on above: Performed By: #### L 100.0100, L500.2500 #### [facility] [address] [place], [address] Bilirubin [Mass/Vol] 1.32 mg/dL High 0.00-1.[address] [facility] Comment on above: Performed By: #### L 100.0100, L500.2500 #### [facility] [address] [place], [address] BUN/CRE 15.4 RATIO Normal 10-20 [facility] Comment on above: Performed By: #### L 100.0100, L500.2500 #### [facility] [address] [place], [address] Calcium [Mass/Vol] 9.0 mg/dL Normal 7.6-11.0 [facility] Comment on above: Performed By: #### L 100.0100, L500.2500 #### [facility] [address] [place], [address] Chloride [Moles/Vol] 103 mmol/L Normal 98-[address] [facility] Comment on above: Performed By: #### L 100.0100, L500.2500 #### [facility] [address] [place], [address] CO2 [Moles/Vol] 27.7 mmol/L Normal 21.0-32.0 [facility] Comment on above: Performed By: #### L 100.0100, L500.2500 #### [facility] [address] [place], [address] Creatinine [Mass/Vol] 1.06 mg/dL Normal 0.70-1.20 [facility] Comment on above: Performed By: #### L 100.0100, L500.2500 #### [facility] [address] [place], [address] ECRCL 31.45 ml/min Low 50-250 [facility] Comment on above: Performed By: #### L 100.0100, L500.2500 #### [facility] [address] [place], [address] GAP 9 Normal 5-15 [facility] Comment on above: Performed By: #### L 100.0100, L500.2500 #### [facility] [address] [place], [address] GFR/1.73 sq M.predicted among non-blacks MDRD (S/P/Bld) [Vol rate/Area] 52 mL/min/{1.73_m2} Low >60 [facility] Comment on above: Result Comment: mL/m in/1.73m2 CKD-EPI Creatinine Equation (2020) Performed By: #### L 100.0100, L500.2500 #### [facility] [address] [place], [address] Globulin (S) [Mass/Vol] 2.3 g/dL Normal 2.2-4.2 [facility] Comment on above: Performed By: #### L 100.0100, L500.2500 #### [facility] [address] [place], [address] Glucose [Mass/Vol] 109 mg/dL High 70-99 [facility] Comment on above: Performed By: #### L 100.0100, L500.2500 #### [facility] [address] [place], [address] Potassium [Moles/Vol] 4.0 mmol/L Normal 3.3-5.1 [facility] Comment on above: Performed By: #### L 100.0100, L500.2500 #### [facility] [address] [place], [address] Sodium [Moles/Vol] 140 mmol/L Normal 133-145 [facility] Comment on above: Performed By: #### L 100.0100, L500.2500 #### [facility] [address] [place], [address] T PROT 6.0 g/dL Normal 5.9-8.4 [facility] Comment on above: Performed By: #### L 100.0100, L500.2500 #### [facility] [address] [place], [address] Urea nitrogen [Mass/Vol] 16 mg/dL Normal 4-19 [facility] Comment on above: Performed By: #### L 100.0100, L500.2500 #### [facility] [address] [place], [address] Consultation - Orthopedicson 03-02-2025 Consultation - Orthopedics [facility] Medical Records Department [address] [place] [address] Consultation - Orthopedics 03/02/25 1100 MR#: [id number] Acct: [id number] Name: MICHAELA BRANDT Rep #: [id number] : 1940 84 From: Elijah Overton MD PCP: Dr. Dillan Santiago MD Status:ADM IN Location: [place] 779002-1 HPI Consult Data Date of Consult: 03/02/25 HPI Narrative Reason for Consultation: Left hip pain HPI Narrative: MICHAELA BRANDT, is a 84 F who presents with left hip pain. Patient's daughter is at bedside and is her medical power of family law attorney. Patient does have memory issues and is a poor historian. She does continue to complain of bilateral knee pain throughout the examination. Patient's daughter notes that last week she was on the phone considering assisted living. Patient gets around with a walker at home and was previously using a cane. She fell getting out of bed yesterday morning and presented emerged part with left leg pain. Imaging was done of the knee showing no definitive fracture however there is evidence of arthritic changes. The hip has an intertrochanteric hip fracture. Patient reports 4 out of 10 pain worse with motion better with immobilization. No numbness and tingling is appreciated. They did place her in a brace because of the knee pain yesterday however did not remove it when imaging was negative. Patient denies any associated numbness tingling distally. Her daughter was at bedside for the entirety of the examination and history gathering and was the primary provider of information. [facility] Medical History Hypothyroidism Anxiety Dementia Self-catheterizes urinary bladder Hypertension Back pain Home Medications ???Medication ???Instructions ???Recorded ???Last Taken ???Type ascorbic acid (vitamin C) 500 mg 500 mg PO DAILY 03/01/25 02/28/25 History tablet (C-500) clonazepam 0.5 mg tablet 0.5 mg PO TID PRN anxiety 03/01/25 03/01/25 History donepezil 10 mg tablet 10 mg PO DAILY 03/01/25 03/01/25 H istory escitalopram oxalate 20 mg tablet 20 mg PO DAILY 03/01/25 02/28/25 History levothyroxine 50 mcg tablet 50 mcg PO DAILY 03/01/25 03/01/25 History trazodone 50 mg tablet 50 mg PO QHS 03/01/25 02/28/25 His tory Allergy/AdvReac Type Severity Reaction Status Date / Time No Known Allergies Allergy Verified 03/01/25 11:27 Family History Other Hypertension Surgical History H/O: hysterectomy Status post right knee replacement Social History household members: none housing: apartment current occupational status: retired other: Daughter lives a few doors down helps her on a regular basis Smoking Status: Never smoker alcohol intake: never substance use type: does not use ROS ROS Narrative 14 point review of systems otherwise negative except what is mentioned in the HPI Vital Signs Vital Signs Vital Signs: 03/01/25 11:25 03/01/25 11:28 03/01/25 12:26 Temperature 99 F 97.6 F L Temperature Source Oral Pulse Rate 67 67 Pulse Strength Respiratory Rate 16 22 H Respiratory Effort Normal Blood Pressure 166/77 H 165/66 H Blood Pressure Mean 106 99 Blood Pressure Source Blood Pressure Position Blood Pressure Location Pulse Ox 99 99 Oxygen Delivery Method Room Air 03/01/25 13:19 03/01/25 15:09 03/01/25 19:45 Temperature 97.9 F 98.1 F Temperature Source Oral Oral Pulse Rate 60 66 64 Pulse Strength Respiratory Rate 21 H 18 16 Respiratory Effort Blood Pressure 145/59 H 153/71 H 126/65 H Blood Pressure Mean 87 98 85 Blood Pressure Source Monitor Monitor Blood Pressure Position Semi-Fowlers Semi-Fowlers Blood Pressure Location Left Arm Left Arm Pulse Ox 98 96 99 Oxygen Delivery Method Room Air Room Air Room Air 03/02/25 03:00 03/02/25 07:25 03/02/25 07:35 Temperature 98.1 F Temperature Source Oral Pulse Rate 64 Pulse Strength Respiratory Rate 16 Respiratory Effort Blood Pressure 133/61 H Blood Pressure Mean 85 Blood Pressure Source Monitor Blood Pressure Position Semi-Fowlers Blood Pressure Location Left Arm Pulse Ox 96 99 Oxygen Delivery Method Room Air Room Air Room Air 03/02/25 07:35 03/02/25 07:36 Temperature 97.5 F L Temperature Source Oral Pulse Rate 62 Pulse Strength Normal (2+) Respiratory Rate 14 Respiratory Effort Blood Pressure 138/60 H Blood Pressure Mean 86 Blood Pressure Source Monitor Blood Pressure Position Semi-Fowlers Blood Pressure Location Left Arm Pulse Ox 100 Oxygen Delivery Method Room Air (more content not included)... Normal [facility] Electrocardiogram reportOrde red By: Scott Santizo on 03-02-2025 EKG study [facility] Cardiovascular Services [address] [place] [address] 12 Lead EKG 03/01/25 1232 MR#: [id number] Acct: [id number] Name: MICHAELA BRANDT Rep #:[id number] : 1940 84 From: Scott palmer MD Attending Dr: Dr. Allison Tran MD Status: ADM IN Ordering Dr: Guerrero Valerio DO Date: 0 03/01/25 Location: MS3 Sex: F C Admitted: 03/01/25 Test Reason : PRE-OP Blood Pressure : */* mmHG Vent. Rate : 65 BPM Atrial Rate : 65 BPM P-R Int : 186 ms QRS Dur : 80 ms QT Int : 440 ms P-R-T Axes : 57 -18 14 degrees QTcB Int : 457 ms Normal sinus rhythm Moderate voltage criteria for LVH, may be normal variant ( R in aVL , Hari product ) Borderline ECG Confirmed by Scott Santizo ([id number]), assistant editor GABI PALOMARES ([id number]) on :19:11 PM Referred By: Confirmed By: Scott Santizo 03/02/25 1319 Date _ Scott Santizo MD CC: Dr. Dillan Santiago MD; Dr. Guerrero Valerio DO; Dr. Allison Tran MD ~ Signed [facility] Other Phone: Hip Min 2 Views (Portable)on 03-02-2025 Hip Min 2 Views (Portable) [facility] Imaging Services [address] [place] [address] Hip Min 2 Views (Portable) MR#: [id number] Acct: [id number] Name: MICHAELA BRANDT Rep #: [id number] : 1940 F 84 From: Crystal Sommer PCP: Dr. Dillan Santiago MD Status: ADM IN Study: Hip Min 2 Views (Portable) Date of Exam: 03/02 Exam# [id number] Ordering Dr: Elijah Overton MD PROCEDURE: HIP MIN 2 VIEWS (PORTABLE) 03/02/2025 REASON FOR EXAM: POST OP TECHNIQUE: Two views of the left hip. COMPARISON: Left hip studies dated 03/01/2025 and 03/01/2025 FINDINGS: The left hip hardware appears to be intact without evidence of fracture or loosening. There is incomplete healing of the intertrochanteric fracture. Surgical fely overlie the hip. There is some soft tissue swelling and emphysematous changes seen in the soft tissues of the right hip. 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 RAD/Hip Min 2 Views (Portable) IMPRESSION: The prosthetic hardware appears to be intact without evidence of fracture or loosening. Reading Location: [facility] CC: Dr. Dillan Santiago MD; Dr. Elijah Overton MD Harbour Master: Signed Normal [facility] Hip Min 2 Views (Portable) [facility] Imaging Services [address] [place] [address] Hip Min 2 Views (Portable) MR#: [id number] Acct: [id number] Name: MICHAELA BRANDT Rep #: [id number] : 1940 F 84 From: Felipe ramon MD PCP: Dr. Dillan Santiago MD Status: ADM IN Study: Hip Min 2 Views (Portable) Date of Exam: 03/02 Exam# [id number] Ordering Dr: Elijah Overton MD PROCEDURE: Intraoperative fluoroscopic services for ORIF of the left intertrochanteric fracture. 03/02/2025 REASON FOR EXAM: ORIF, GAMMA TECHNIQUE: Intraoperative fluoroscopic services provided. 66.9 seconds of fluoroscopy. 11.2 mGy. 8 spot films were obtained. COMPARISON: Prior study dated March 01, 2025. FINDINGS: Intraoperative fluoroscopic services provided for open reduction and internal fixation of the left intertrochanteric fracture using gamma nail and femoral stem. RAD/Hip Min 2 Views (Portable) IMPRESSION: Satisfactory ORIF of the left intertrochanteric fracture. Reading Location: [place] [address] CC: Dr. Dillan Santiago MD; Dr. Elijah Overton MD Harbour Master: Signed Normal [facility] - Chemistry and C hemistry - challengeOrdered By: Roro Long on 03-02-2025 AST [Catalytic activity/Vol] 27 U/L <32 [facility] MR/POSTOP.ANEon 03-02-2025 MR/POSTOP.[facility] Medical Records Department [address] [place] [address] Anesthesia Postop Eval I 03/02/25 1259 MR#: [id number] Acct: [id number] Name: MICHAELA BRANDT Rep #: [id number] : 1940 84 From: Joanna Delgado AQUATIC SCIENTIST PCP: Dr. Dillan Santiago MD Status:ADM IN Y Race: C Location: [place] [id number] Anesthesia: Postop Eval I Current Vital Signs Temperature: 97.2 F Pulse Rate: 93 Blood Pressure: 121/73 Respiratory Rate: 16 Pulse Ox: 98 Oxygen Delivery Method: Room Air Assessment Airway patent: Yes Spontaneous unlabored respirations: Yes Mental status: Asleep nausea: No Vomiting: No Anesthesia Complication: No Fluid Hydration Crystalloid volume administer (ml): 600 Total IV fluid infused: 600 Progress Note Anesthesia document: Postop Eval 1 completed: Yes 03/02/25 1300 Date Joanna Delgado AQUATIC SCIENTIST Cosigner Signature: Date CC: Signed Normal [facility] Magnesiumon 03-02-2025 Magnesium [Mass/Vol] 2.2 mg/dL Normal 1.5-2.[address] [facility] Comment on above: Performed By: #### L 100.0100, L500.2500 #### [facility] [address] [place], [address] Magnesium (Unsp spec) [Mass/ Vol]Ordered By: Roro Long on 03-02-2025 Magnesium [Mass/Vol] 2.2 mg/dL 1.5-2.[address] [facility] Magnesium measurement (mass/ volume)Ordered By: Roro Long on 03-02-2025 Magnesium (Unsp spec) [Mass/Vol] 2.2 mg/dL 1.5-2.2 [facility] Operative Reporton 5 Operative Report [facility] Medical Records Department [address] [place] [address] Operative Report 03/02/25 1100 MR#: [id number] Acct: [id number] Name: MICHAELA BRANDT Rep #: [id number] : 1940 84 From: Elijah Overton MD PCP: Dr. Dillan Santiago MD Status:ADM IN [place] [facility] [id number] Operative Report (Standard) Operative Information Date of Procedure: 03/02/25 Pre-Operative Diagnosis: Left intertrochanteric hip fracture Post-Operative Diagnosis: Left intertrochanteric hip fracture Surgery/Procedure Performed: Left hip cephalomedullary nail etl application developer: No Type of Anesthesia: General RN Documented Start/Stop Times: Operation Date: 03/02/25 13:15 Case Time Into Pre-Op 03/02/25 10:50 Anesthesia Start 03/02/25 11:50 Into Room 03/02/25 11:50 Procedure Start 03/02/25 12:16 Procedure End 03/02/25 12:41 Procedure Start Time: 12:16 Procedure Stop Time: 12:41 Select all DRAINS/GRAFTS/IMPLANTS that apply: Implanted device Implanted device details: [place] gamma nail 3, 11 mm x 180 mm, 125 degree neck angle. 85 mm lag screw Special Medications: 2 g Ancef Estimated Blood Loss: 300 mL Fluids Replaced: 600 mL crystalloid Specimen collected: No Description of surgery: Brief history operative indications: 84-year-old female who fell in her home yesterday sustained a left intertrochanteric hip fracture after extensive discussion including risk and benefits which include but are not limited to blood loss, PEs, DVTs, neurovascular damage, nonunions, malunions and screw cut out patient has elected to proceed with a left hip cephalo-medullary nail. Procedure: On the date of the procedure the patient's L hip was marked in the preoperative area and patient was taken back to the operating room. Anesthetic was administered and patient was transferred to the table were all bony prominence identified well-padded and the ipsilateral arm was placed across the chest. Patient was then translated down to the perineal post and the operative leg was placed in the boot while the nonoperative leg was lowered and secured. The operative leg was placed in traction and internal rotation and live fluoroscopy was used to verify adequate reduction. The operative leg was then prepped in a sterile fashion with chlorhexidine while the surgeon scrubbed. Upon reentering the room the operative extremity was draped in the standard orthopedic fashion. Skin incision was marked and a timeout was called. Everyone agreed upon the side, the site, the procedure be performed, patient's identity, and antibiotics given. Skin incision was made and the position of the entry guidepin was verified using live fluoroscopy. Once we were satisfied with our position the pin was advanced in the soft tissue protector was placed over the pin. The entry reamer was then advanced into the proximal portion of the femur. A guidewire was placed down the intramedullary canal and fluoroscopy was used to verify that the anterior cortex had not been breached distally as well as satisfactory distal positioning. We then used live fluoroscopy to verify the placement of the nail and a Zhane short gamma 3 by 11 mm 125 degree hip nail was selected. The 12.5 mm reamer was then passed. The nail was then attached to the preform plate maker and inserted into the intramedullary canal. The appropriate depth was verified and the skin incision for the lag screw was made. The lag screw madelinmary jo vela was then placed under live fluoroscopy and when a satisfactory position was obtained the length of the screw was measured and the standard technique to drill for the lag screws was performed. The anti-rotation bar was used. At this time a 85 mm lag screw was selected with its corresponding compression screw. The lag screw was then passed and traction was left off the leg. The compression screw was then passed and the fracture was compressed. The final position of the lag screw was verified under fluoroscopy. Based on the fracture pattern and distal fit of the nail it was determined that no distal lag screw was to be used. Live fluoroscopy was used to verify the position of the interlocking screw and the final position of the hip components. Once we were satisfied with our positioning the wounds were copiously irrigated out with normal saline skin was closed with 2-0 Vicryl and fely for final skin closure. A sterile dressing was placed with Xeroform. Patient was then awakened by anesthesia transferred from the fracture table back to their hospital bed and transferred to the PACU for recovery. Postoperative plan: Patient will be weight-bear as tolerated. Agree with initial DVT prophylaxis in house to be enoxaparin, recommend aspirin 81 mg twice a day for DVT prophylaxis with thigh-high stockings upon discharge. Follow up in the office in 2 weeks. Surgical Findings: S (more content not included)... Normal [facility] Phosphoruson 03-02-2025 Phosphate [Mass/Vol] 4.0 mg/dL Normal 2.7-4.[address] [facility] Comment on above: Performed By: #### L 100.0100, L500.2500 #### [facility] [address] [place], [address] Serum globulin measurementOr dered By: Roro Long on 03-02-2025 Globulin (S) [Mass/Vol] 2.3 g/dL 2.2-4.2 [facility] Serum or plasma alanine tillman otransferase (ALT) measurementOrdered By: Roro Long on 03-02-2025 ALT [Catalytic activity/Vol] 11 U/L <35 [facility] Serum or plasma albumin thomas urement (mass/volume)Ordered By: Roro Long on 03-02-2025 Albumin [Mass/Vol] 3.7 g/dL 3.4-4.8 [facility] Serum or plasma albumin/glob ulin mass ratioOrdered By: Roro Long on 03-02-2025 Albumin/Globulin [Mass ratio] 1.6 {ratio} 0.9-2.4 [facility] Serum or plasma alkaline mariah sphatase measurementOrdered By: Roro Long on 03-02-2025 ALP [Catalytic activity/Vol] 55 U/L 35-104 [facility] Serum phosphorus measurement Ordered By: Roro Long on 03-02-2025 Phosphorus Level 4.0 mg/dL 2.7-4.5 [facility] TSH DL <= 0.005 mIU/L QnOrde red By: Roro Long on 03-02-2025 Thyroid Stimulating Hormone (TSH) 1.470 uIU/mL 0.300-4.200 [facility] TSH Qn 1.470 uIU/mL 0.300-4.200 [facility] Thyroid Stim Hormone (TSH)on 03-02-2025 TSH 1.470 uIU/mL Normal 0.300-4.200 [facility] Comment on above: Performed By: #### L 100.0100, L500.2500 #### [facility] [address] [facility] [place], [address] Total proteinOrdered By: Indu Long on 03-02-2025 Protein [Mass/Vol] 6.0 g/dL 5.9-8.4 [facility] 12 Lead EKGon 03-01-2025 12 Lead EKG [facility] Cardiovascular Services [address] [place] [address] 12 Lead EKG 03/01/25 1232 MR#: [id number] Acct: [id number] Name: MICHAELA BRANDT Rep #: [id number] : 1940 84 From: Scott Santizo MD Attending Dr: Dr. Allison Tran MD Status: AD M IN Ordering Dr: Guerrero Valerio DO Date: 03/01/25 [place] [facility] Sex: F C Admitted: 03/01/25 Test Reason : PRE-OP Blood Pressure : */* mmHG Vent. Rate : 65 BPM Atrial Rate : 65 BPM P-R Int : 186 ms QRS Dur : 80 ms QT Int : 440 ms P-R-T Axes : 57 -18 14 degrees QTcB Int : 457 ms Normal sinus rhythm Moderate voltage criteria for LVH, may be normal variant ( R in aVL , [place] product ) Borderline ECG Confirmed by Scott Santizo ([id number]), assistant editor GABI PALOMARES ([id number]) on 03/02/2025 1:19:11 PM Referred By: Confirmed By: Scott Santizo 03/02/25 1319 Date Scott Santizo MD CC: Dr. Dillan Santiago MD; Dr. Guerrero Valerio DO; Dr. Allison Tran MD Signed Normal [facility] Absolute neutrophil countOrd ered By: Guerrero Valerio on 03-01-2025 Neutrophils (Bld) [#/Vol] 17.3 10*3/uL High 2.0-7.7 [facility] Activated partial thrombopla stin time (aPTT) in platelet poor plasma by coagulation aOrdered By: Guerrero Valerio on 03-01-2025 aPTT Coag (PPP) [Time] 25.8 s 24.1-36.2 [facility] Anion gap in Serum or Plasma Ordered By: Guerrero Valerio on 03-01-2025 Anion gap [Moles/Vol] 11 mmol/L 04-02 [facility] BUN/creatinine ratioOrdered By: Guerrero Valerio on 03-01-2025 Urea nitrogen/Creatinine [Mass ratio] 17.4 mg/mg - [facility] Basic Metabolic Profile (BMP )on 03-01-2025 BUN/CRE 17.4 RATIO Normal - [facility] Comment on above: Performed By: #### L 300.4310, L300.3900, L100.0100, L500.2500, BTS ####[facility] [address] [place], [address] Calcium [Mass/Vol] 9.2 mg/dL Normal 7.6-11.0 [facility] Comment on above: Performed By: #### L 300.4310, L300.3900, L100.0100, L500.2500, BTS ####[facility] [address] [place], [address] Chloride [Moles/Vol] 104 mmol/L Normal 98-[address] [facility] Comment on above: Performed By: #### L 300.4310, L300.3900, L100.0100, L500.2500, BTS ####[facility] [address] [place], [address] CO2 [Moles/Vol] 25.2 mmol/L Normal 21.0-32.0 [facility] Comment on above: Performed By: #### L 300.4310, L300.3900, L100.0100, L500.2500, BTS ####[facility] [address] [place], [address] Creatinine [Mass/Vol] 0.90 mg/dL Normal 0.70-1.20 [facility] Comment on above: Performed By: #### L 300.4310, L300.3900, L100.0100, L500.2500, BTS ####[facility] [address] [place], [address] ECRCL 37.62 ml/min Low 50-250 [facility] Comment on above: Performed By: #### L 300.4310, L300.3900, L100.0100, L500.2500, BTS ####[facility] [address] [place], [address] GAP 11 Normal 5-15 [facility] Comment on above: Performed By: #### L 300.4310, L300.3900, L100.0100, L500.2500, BTS ####[facility] [address] [place], [address] GFR/1.73 sq M.predicted among non-blacks MDRD (S/P/Bld) [Vol rate/Area] 63 mL/min/{1.73_m2} Normal >60 [facility] Comment on above: Result Comment: mL/m in/1.73m2 CKD-EPI Creatinine Equation (2020) Performed By: #### L 300.4310, L300.3900, L100.0100, L500.2500, BTS ####[facility] [address] [place], [address] Glucose [Mass/Vol] 148 mg/dL High 70-99 [facility] Comment on above: Performed By: #### L 300.4310, L300.3900, L100.0100, L500.2500, BTS ####[facility] [address] [place], [address] Potassium [Moles/Vol] 4.2 mmol/L Normal 3.3-5.1 [facility] Comment on above: Performed By: #### L 300.4310, L300.3900, L100.0100, L500.2500, BTS ####[facility] [address] [place], [address] Sodium [Moles/Vol] 140 mmol/L Normal 133-145 [facility] Comment on above: Performed By: #### L 300.4310, L300.3900, L100.0100, L500.2500, BTS ####[facility] [address] [place], [address] Urea nitrogen [Mass/Vol] 16 mg/dL Normal 4-19 [facility] Comment on above: Performed By: #### L 300.4310, L300.3900, L100.0100, L500.2500, BTS ####[facility] [address] [place], [address] Basophil percentageOrdered B y: Guerrero Valerio on 03-01-2025 Basophils/100 WBC (Bld) 0.2 % 0-1 [facility] Brain/Head without Contrasto n 03-01-2025 Brain/Head without Contrast [facility] Imaging Services [address] [place] [address] Brain/Head without Contrast MR#: [id number] Acct: [id number] Name: MICHAELA BRANDT Rep #: [id number] : 1940 F 84 From: Janet Salas nd, MD PCP: Dr. Dillan Santiago MD Status: REG ER Study: Brain/Head without Contrast Date of Exam: 02/17 02/10 Exam# [id number] Ordering Dr: Guerrero Valerio DO EXAM: BRAIN/HEAD WITHOUT CONTRAST CLINICAL HISTORY: 84 y/o F with INJURY. COMPARISON: CT head 01/17/2025. TECHNIQUE: Routine CT imaging of the head without IV contrast. Additional multiplanar reformats were obtained. Dose reduction techniques were used including intermediate exposure control (AEC),iterative reconstruction technique, and/or mA and/or KV dose adjustments based on patient's size. FINDINGS: Moderate generalized cerebral and cerebellar volume loss with concordant prominence of the ventricles and subarachnoid spaces. Moderate patchy supratentorial white matter hypodensities. The murray-white matter interfaces are otherwise maintained. No acute intracranial hemorrhage or herniation. The orbits, visualized paranasal sinuses and mastoids are unremarkable. No calvarial fracture or scalp hematoma. CT/Brain/Head without Contrast IMPRESSION: 1. No acute intracranial finding. 2. Findings of chronic microvascular ischemic changes and age-related changes. Reading Location: [facility] CC: Dr. Dillan Santiago MD; Dr. Guerrero Valerio DO Harbour Master: Signed Normal [facility] CBC W/Diff, Automatedon 04- Absolute Lymph 0.63 X10 3/uL Low 0.83-4.51 [facility] Comment on above: Performed By: #### L 300.4310, L300.3900, L100.0100, L500.2500, BTS ####[facility] [address] [place], [address] Absolute Neut 17.3 X10 3/uL High 2.0-7.7 [facility] Comment on above: Performed By: #### L 300.4310, L300.3900, L100.0100, L500.2500, BTS ####[facility] [address] [place], [address] Basophils/100 WBC (Bld) 0.2 % Normal 0-1 [facility] Comment on above: Performed By: #### L 300.4310, L300.3900, L100.0100, L500.2500, BTS ####[facility] [address] [place], [address] Eosinophils/100 WBC (Bld) 0.0 % Normal 0-5 [facility] Comment on above: Performed By: #### L 300.4310, L300.3900, L100.0100, L500.2500, BTS ####[facility] [address] [place], [address] Erythrocyte distribution width (RBC) [Ratio] 12.9 % Normal 11.6-14.6 [facility] Comment on above: Performed By: #### L 300.4310, L300.3900, L100.0100, L500.2500, BTS ####[facility] [address] [place], [address] Hematocrit (Bld) [Volume fraction] 37.3 % Normal 37-47 [facility] Comment on above: Performed By: #### L 300.4310, L300.3900, L100.0100, L500.2500, BTS ####[facility] [address] [place], [address] Hemoglobin (Bld) [Mass/Vol] 13.0 g/dL Normal 12.0-15.0 [facility] Comment on above: Performed By: #### L 300.4310, L300.3900, L100.0100, L500.2500, BTS ####[facility] [address] [place], [address] IG% 0.600 Normal 0.0-0.9 [facility] Comment on above: Result Comment: IG% - Immature Granulocytes (promyelocytes, myelocytes and metamyelocytes) > 1% indicates that a LEFT SHIFT is Present. Performed By: #### L 300.4310, L300.3900, L100.0100, L500.2500, BTS ####[facility] [address] [place], [address] Lymphocytes/100 WBC (Bld) 3.3 % Low 19-41 [facility] Comment on above: Performed By: #### L 300.4310, L300.3900, L100.0100, L500.2500, BTS ####[facility] [address] [place], [address] MCH (RBC) [Entitic mass] 30.4 pg Normal 27.0-32.0 [facility] Comment on above: Performed By: #### L 300.4310, L300.3900, L100.0100, L500.2500, BTS ####[facility] [address] [place], [address] MCHC (RBC) [Mass/Vol] 34.9 g/dL Normal 32-36 [facility] Comment on above: Performed By: #### L 300.4310, L300.3900, L100.0100, L500.2500, BTS ####[facility] [address] [place], [address] MCV (RBC) [Entitic vol] 87.1 fL Normal 81-99 [facility] Comment on above: Performed By: #### L 300.4310, L300.3900, L100.0100, L500.2500, BTS ####[facility] [address] [place], [address] Monocytes/100 WBC (Bld) 3.8 % Normal 0-10 [facility] Comment on above: Performed By: #### L 300.4310, L300.3900, L100.0100, L500.2500, BTS ####[facility] [address] [place], [address] Neutrophils/100 WBC (Bld) 92.1 % High 47-70 [facility] Comment on above: Performed By: #### L 300.4310, L300.3900, L100.0100, L500.2500, BTS ####[facility] [address] [place], [address] Nucleated RBC (Bld) [#/Vol] 0 10*3/uL Normal 0-5 [facility] Comment on above: Performed By: #### L 300.4310, L300.3900, L100.0100, L500.2500, BTS ####[facility] [address] [place], [address] Platelet mean volume (Bld) [Entitic vol] 10.3 fL Normal 6.2-12.0 [facility] Comment on above: Performed By: #### L 300.4310, L300.3900, L100.0100, L500.2500, BTS ####[facility] [address] [place], [address] Platelets (Bld) [#/Vol] 239 10*3/uL Normal 150-450 [facility] Comment on above: Performed By: #### L 300.4310, L300.3900, L100.0100, L500.2500, BTS ####[facility] [address] [place], [address] RBC (Bld) [#/Vol] 4.28 10*6/uL Normal 4.2-5.4 [facility] Comment on above: Performed By: #### L 300.4310, L300.3900, L100.0100, L500.2500, BTS ####[facility] [address] [place], [address] RDW SD 40.5 fl Normal 35.1-43.9 [facility] Comment on above: Performed By: #### L 300.4310, L300.3900, L100.0100, L500.2500, BTS ####[facility] [address] [place], [address] WBC (Bld) [#/Vol] 18.8 10*3/uL High 4.4-11.0 [facility] Comment on above: Performed By: #### L 300.4310, L300.3900, L100.0100, L500.2500, BTS ####[facility] [address] [place], [address] Carbon dioxide, total [Moles /volume] in Central venous bloodOrdered By: Guerrero Valerio on 03-01-2025 CO2 [Moles/Vol] 25.2 mmol/L 21.0-32.0 [facility] Chest 1 View (Portable)on Chest 1 View (Portable) [facility] Imaging Services [address] [place] [address] Chest 1 View (Portable) MR#: [id number] Acct: [id number] Name: MICHAELA BRANDT Rep #: [id number] : 1940 F 84 From: Janet Salas nd, MD PCP: Dr. Dillan Santiago MD Status: ADM IN Study: Chest 1 View (Portable) Date of Exam: 03/01/25 Exam# [id number] Ordering Dr: Roro Long DO PROCEDURE: CHEST 1 VIEW (PORTABLE) 03/01/2025 REASON FOR EXAM: PREOP TECHNIQUE: Frontal view of the chest. COMPARISON: None. FINDINGS: Hardware: None. Heart: The heart size is normal. Lungs: Findings of emphysema/fibrosis with bibasilar atelectasis/scarring. No focal consolidation, pleural effusion or pneumothorax. Bones: Degenerative changes are identified within the thoracic spine. Chronic left humeral head fracture deformity. RAD/Chest 1 View (Portable) IMPRESSION: Emphysema/fibrosis. No acute findings. Reading Location: [facility] CC: Dr. Dillan Santiago MD; Dr. Roro Long DO Harbour Master: Signed Normal [facility] Chloride assayOrdered By: Christophe Valerio on 03-01-2025 Chloride [Moles/Vol] 104 mmol/L 98-[address] [facility] Comprehensive Metabolic Prof agusto 03-01-2025 ALB Normal 3.4-4.8 [facility] Comment on above: Result Comment: PER KAMLA IN MS3 WANTS TO CANCEL CMP. PT WILL HAVE MORNING LABS THEN. Performed By: #### L 500.4050 ####[facility] [address] [place], [address] ALK PHOS Normal 35-104 [facility] Comment on above: Result Comment: PER KAMLA IN MS3 WANTS TO CANCEL CMP. PT WILL HAVE MORNING LABS THEN. Performed By: #### L 500.4050 ####[facility] [address] [place], [address] ALT Normal <=34 [facility] Comment on above: Result Comment: PER KAMLA IN MS3 WANTS TO CANCEL CMP. PT WILL HAVE MORNING LABS THEN. Performed By: #### L 500.4050 ####[facility] [address] [place], [address] AST Normal <=31 [facility] Comment on above: Result Comment: PER KAMLA IN MS3 WANTS TO CANCEL CMP. PT WILL HAVE MORNING LABS THEN. Performed By: #### L 500.4050 ####[facility] [address] [place], [address] BUN Normal 4-19 [facility] Comment on above: Result Comment: PER KAMLA IN MS3 WANTS TO CANCEL CMP. PT WILL HAVE MORNING LABS THEN. Performed By: #### L 500.4050 ####[facility] [address] [place], [address] BUN/CRE Normal 10-20 [facility] Comment on above: Result Comment: PER KAMLA IN MS3 WANTS TO CANCEL CMP. PT WILL HAVE MORNING LABS THEN. Performed By: #### L 500.4050 ####[facility] [address] [place], [address] Calcium Normal 7.6-11.0 [facility] Comment on above: Result Comment: PER KAMLA IN MS3 WANTS TO CANCEL CMP. PT WILL HAVE MORNING LABS THEN. Performed By: #### L 500.4050 ####[facility] [address] [place], [address] CL Normal 98-108 [facility] Comment on above: Result Comment: PER KAMLA IN MS3 WANTS TO CANCEL CMP. PT WILL HAVE MORNING LABS THEN. Performed By: #### L 500.4050 ####[facility] [address] [place], [address] CO2 Normal 21.0-32.0 [facility] Comment on above: Result Comment: PER KAMLA IN MS3 WANTS TO CANCEL CMP. PT WILL HAVE MORNING LABS THEN. Performed By: #### L 500.4050 ####[facility] [address] [place], [address] CREAT,SERUM Normal 0.70-1.20 [facility] Comment on above: Result Comment: PER KAMLA IN MS3 WANTS TO CANCEL CMP. PT WILL HAVE MORNING LABS THEN. Performed By: #### L 500.4050 ####[facility] [address] [place], [address] eGFR Normal >60 [facility] Comment on above: Result Comment: PER KAMLA IN MS3 WANTS TO CANCEL CMP. PT WILL HAVE MORNING LABS THEN. Performed By: #### L 500.4050 ####[facility] [address] [place], [address] GAP Normal 5-15 [facility] Comment on above: Result Comment: PER KAMLA IN MS3 WANTS TO CANCEL CMP. PT WILL HAVE MORNING LABS THEN. Performed By: #### L 500.4050 ####[facility] [address] [place], [address] GLU Normal 70-99 [facility] Comment on above: Result Comment: PER KAMLA IN MS3 WANTS TO CANCEL CMP. PT WILL HAVE MORNING LABS THEN. Performed By: #### L 500.4050 ####[facility] [address] [place], [address] Potassium Normal 3.3-5.1 [facility] Comment on above: Result Comment: PER KAMLA IN MS3 WANTS TO CANCEL CMP. PT WILL HAVE MORNING LABS THEN. Performed By: #### L 500.4050 ####[facility] [address] [place], [address] T BILI Normal 0.00-1.30 [facility] Comment on above: Result Comment: PER KAMLA IN MS3 WANTS TO CANCEL CMP. PT WILL HAVE MORNING LABS THEN. Performed By: #### L 500.4050 ####[facility] [address] [place], [address] T PROT Normal 5.9-8.4 [facility] Comment on above: Result Comment: PER KAMLA IN MS3 WANTS TO CANCEL CMP. PT WILL HAVE MORNING LABS THEN. Performed By: #### L 500.4050 ####[facility] [address] [place], [address] Comprehensive Metabolic Profil Normal 133-145 [facility] Comment on above: Result Comment: PER KAMLA IN MS3 WANTS TO CANCEL CMP. PT WILL HAVE MORNING LABS THEN. Performed By: #### L 500.4050 ####[facility] [address] [place], [address] Emergency Department Summary on 03-01-2025 Emergency Department Summary [facility] Medical Records Department [address] [place] [address] Emergency Department Summary 03/01/25 MR#: [id number] Acct: [id number] Name: MICHAELA BRANDT Rep #: [id number] : 1940 84 From: Guerrero Valerio DO PCP: Dr. Dillan Santiago MD Status:ADM IN Location: MS3 NU732-1 HPI HPI - Fall History of Present Illness Chief Complaint: Fall Informant: patient and EMS Narrative Narrative: 84-year-old female presenting to the emergency room with left knee injury. Patient states she was sitting on the side of the bed when she fell off injuring the left knee. She notes prior right knee surgery. She does not know if they replaced it or not. That was apparently in 2014 in [facility]. Patient reportedly just moved to the area. She denies any other injuries. She states that she cannot really move the knee. Patient is very tearful upset about bothering her children and over her late . There is a report of the degree of dementia that is reported to me. [facility] Medical History (Updated 03/01/25 @ 13:[address] Roro Long, ) Hypothyroidism Anxiety Dementia Self-catheterizes urinary bladder Hypertension Back pain Home Medications ???Medication ???Instructions ???Recorded ???Last Taken ???Type ascorbic acid (vitamin C) 500 mg 500 mg PO DAILY 03/01/25 02/28/25 History tablet (C-500) clonazepam 0.5 mg tablet 0.5 mg PO TID PRN anxiety 03/01/25 03/01/25 History donepezil 10 mg tablet 10 mg PO DAILY 03/01/25 03/01/25 H istory escitalopram oxalate 20 mg tablet 20 mg PO DAILY 03/01/25 02/28/25 History levothyroxine 50 mcg tablet 50 mcg PO DAILY 03/01/25 03/01/25 History trazodone 50 mg tablet 50 mg PO QHS 03/01/25 02/28/25 His tory Allergy/AdvReac Type Severity Reaction Status Date / Time No Known Allergies Allergy Verified 03/01/25 11:27 Social History Smoking Status: Unknown if ever smoked ROS ROS ED Constitutional Constitutional ED: Denies chills or weight loss Eyes Eyes: Denies change in vision or diplopia ENT ENT ED: Denies ear pain, rhinorrhea or sore throat Cardiovascular Cardiovascular: Denies chest pain, orthopnea, palpitations or racing heartbeat Respiratory/Chest Respiratory/Chest: Denies cough, dyspnea or orthopnea Gastrointestinal Gastrointestinal: Denies abdominal pain, diarrhea, nausea or vomiting Genitourinary Genitourinary ED: Denies dysuria, hematuria or urinary frequency Musculoskeletal Musculoskeletal: Reports other Details: Left knee pain ; Denies arthralgias, back pain, myalgias or neck pain Integumentary Denies abscess or rash Neurologic Neurologic: Denies headache(s), paresthesias or weakness Psychiatric Psychiatric: Denies anxiety, depression, suicidal ideation or suicidal thoughts Endocrine Endocrinology: Denies polydipsia, polyphagia or polyuria Allergic/Immunologic Allergic/Immunologic ED: Denies mouth swelling, tongue swelling or urticaria EXAM Physical Exam Const Vital Signs: 03/01/25 11:25 03/01/25 11:28 03/01/25 12:26 Temperature 99 F 97.6 F L Temperature Source Oral Pulse Rate 67 67 Respiratory Rate 16 22 H Respiratory Effort Normal Blood Pressure 166/77 H 165/66 H Blood Pressure Mean 106 99 Pulse Ox 99 99 Oxygen Delivery Method Room Air 03/01/25 13:19 Temperature Temperature Source Pulse Rate 60 Respiratory Rate 21 H Respiratory Effort Blood Pressure 145/59 H Blood Pressure Mean 87 Pulse Ox 98 Oxygen Delivery Method Room Air Positive well nourished and well developed General Appearance ED: well developed HEENT Reports normocephalic, head/scalp atraumatic and moist mucous membranes Eyes PERRL and EOMs intact bilaterally Neck no lymphadenopathy, supple and no JVD Resp normal respiratory effort and clear to auscultation bilaterally Cardio regular rate, regular rhythm and no murmurs GI normal to inspection, nondistended, normoactive bowel sounds and non-tender Palpation: soft Back/Spine no CVA tenderness and normal ROM Extremity Extremity Narrative: The left leg appears shortened compared to the right. She has pain with logroll in the left inguinal region. I do not appreciate any significant knee swelling. Patient guards the knee. She will not lift the leg up off the bed. I do not appreciate contusion ecchymosis or abrasions. She is able to contract the quadriceps. General Extremety ED: Negative for edema General Extremity: Negative for edema Neuro oriented x3 and CN's II-XII intact bilaterally Sensorium / Orientation: alert Motor Exam: strength 5/5 throughout Psych Mood Affect: depressed and tearful Skin no rashes or lesions noted and no wounds MDM MDM MDM Narrative Medical d (more content not included)... Normal [facility] Eosinophil percentageOrdered By: Guerrero Valerio on 03-01-2025 Eosinophils/100 WBC (Bld) 0.0 % 0-5 [facility] Erythrocyte distribution wid th (RBC) [Ratio]Ordered By: Guerrero Valerio on 03-01-2025 Erythrocyte distribution width (RBC) [Entitic vol] 40.5 fL 35.1-43.9 [facility] Erythrocyte distribution wid th ratioOrdered By: Guerrero Valerio on 03-01-2025 Erythrocyte distribution width (RBC) [Ratio] 12.9 % 11.6-14.6 [facility] Estimation of creatinine winston aranceOrdered By: Guerrero Valerio on 03-01-2025 Estimated Creatinine Clearance Calc 37.62 ml/min Low 50-250 [facility] Extremity Lower without Cont raon 03-01-2025 Extremity Lower without Contra [facility] Imaging Services [address] [place], [place] [address] Extremity Lower without Contra MR#: [id number] Acct: [id number] Name: MICHAELA BRANDT Rep #: [id number] : 1940 F 84 From: Janet Salas nd, MD PCP: Dr. Dillan Santiago MD Status: REG ER Study: Extremity Lower without Contra Date of Exam: 0 03/01/25 Exam# [id number] Ordering Dr: Guerrero Valerio DO PROCEDURE: EXTREMITY LOWER WITHOUT CONTRA 03/01/2025 REASON FOR EXAM: PAIN TECHNIQUE: Axial CT images of the left lower extremity obtained without intravenous contrast. Coronal and Sagittal reconstruction series were provided. One or more dose reduction techniques were used (e.g., Automated exposure control, adjustment of the mA and/or kV according to patient size, use of iterative reconstruction technique RADIATION DOSE SUMMARY: CTDlvol: 15 mGy DLP: 420 mGycm COMPARISON: Same day left knee radiographs. FINDINGS: Bones: Diffuse osseous demineralization. No acute osseous fracture. The previously visualized osseous fragment along the distal lateral left femoral condyle is secondary to diffuse bone lucency and probable nutrient channel. No aggressive osseous lesions. Partially visualized orthopedic hardware within the right patella. Joints: Moderate left knee joint arthrosis. No traumatic dislocation. Soft Tissues: Vascular calcifications. Diffuse muscular atrophy. No subcutaneous hematoma or edema. CT/Extremity Lower without Contra IMPRESSION: No acute osseous fracture. The previously visualized osseous fragment along the distal lateral left femoral condyle is secondary to diffuse bone lucency and probable nutrient channel. Reading Location: [facility] CC: Dr. Dillan Santiago MD; Dr. Guerrero Valerio DO Harbour Master: Signed Normal [facility] GFR/1.73 sq M.predicted arti g non-blacks MDRD (S/P/Bld) [Vol rate/Area]Ordered By: Guerrero Valerio on 03-01-2025 Estimated GFR (MDRD) Non-Af Amer 63 >60 [facility] Comment on above: mL/min/1.73m2 CKD-EP I Creatinine Equation (2020) H AND P Exam - [place] 03-01-2025 H&P Exam - Hospitalist [facility] Medical Records Department [address] [place] [address] H P Exam - Hospitalist 03/01/25 1345 MR#: [id number] Acct: [id number] Name: MICHAELA BRANDT Rep #: [id number] : 1940 84 From: Roro Long DO PCP: Dr. Dillan Santiago MD Status:ADM IN [place] [facility] [id number] HPI - General General Date of Admission: 03/01/25 Date of Service: 03/01/25 Chief Complaint: L hip pain after mechanical fall HPI Narrative MICHAELA BRANDT, is a 84 F who presented to the emergency department at [facility] on 03/01/2025 with a chief complaint of left leg pain after mechanical fall. Evidently she was sitting on the side of the bed when she slid off fell to the floor injuring her left leg. She initially complained of knee pain, however, while in the emergency department it was delineated that was probably her left hip rather than her knee. Patient just moved to the area recently. She has had previous knee replacement on the left side. It does appear that she has some memory loss and is a poor historian. Vital signs show temperature of 99, heart rate 67, blood pressure 166/77, respiratory rate 16 and pulse ox was 99% on room air. CBC showed a leukocytosis white count of 18.8. Differential was positive for neutrophilia with a neutrophil count of 92.1. Coags were normal. Chemistry panel was unremarkable. Hip and pelvic x-rays showed acute intertrochanteric fracture of the left femur. Left knee x-ray initially showed acute fracture of the left lateral femoral condyle however it was reviewed and a CT was ordered and negative so they felt that what they thought was a fracture was likely a diffuse bone lucency and a nutrient channel. CT of the brain showed findings consistent with chronic microvascular ischemic changes. Chest x-ray showed emphysematous changes and fibrosis but no acute findings. Social work was contacted in the emergency department due to concerns with her memory loss and ongoing social issues and Dr. Rosas was contacted with regards to the fracture. She will be admitted with an expected 2 midnight stay. [facility] Medical History Hypothyroidism Anxiety Dementia Self-catheterizes urinary bladder Hypertension Back pain Home Medications ???Medication ???Instructions ???Recorded ???Last Taken ???Type ascorbic acid (vitamin C) 500 mg 500 mg PO DAILY 03/01/25 02/28/25 History tablet (C-500) clonazepam 0.5 mg tablet 0.5 mg PO TID PRN anxiety 03/01/25 03/01/25 History donepezil 10 mg tablet 10 mg PO DAILY 03/01/25 03/01/25 H istory escitalopram oxalate 20 mg tablet 20 mg PO DAILY 03/01/25 02/28/25 History levothyroxine 50 mcg tablet 50 mcg PO DAILY 03/01/25 03/01/25 History trazodone 50 mg tablet 50 mg PO QHS 03/01/25 02/28/25 His tory Allergy/AdvReac Type Severity Reaction Status Date / Time No Known Allergies Allergy Verified 03/01/25 11:27 Family History (Updated 03/01/25 @ 16:[address] Roro Long DO) Other Hypertension Surgical History (Updated 03/01/25 @ 16:[address] Roro Long DO) H/O: hysterectomy Status post right knee replacement Social History (Updated 03/01/25 @ 16:[address] Roro Ethan, DO) household members: none housing: apartment current occupational status: retired other: Daughter lives a few doors down helps her on a regular basis Smoking Status: Never smoker alcohol intake: never substance use type: does not use ROS Constitutional Constitutional: Denies anorexia, change in weight, chills, fatigue, fever(s), malaise, night sweats, weakness or other Eyes Eyes: Denies blurry vision, change in eye color, change in vision, discharge from eye(s), double vision, erythema, eye pain, loss of vision or other ENT HEENT: Denies abnormal hearing, dysphagia, ear pain, epistaxis, headache(s), hearing loss, nasal congestion, nasal discharge, post nasal drip, sinus pressure, sore throat or other Cardiovascular Cardiovascular: Denies chest pain, claudication, dyspnea on exertion, edema, lightheadedness, orthopnea, palpitations, paroxysmal nocturnal dyspnea, rapid heart rate, syncope or other Respiratory/Chest Respiratory/Chest: Denies cough, dyspnea, excessive phlegm production, hemoptysis, productive cough, shortness of breath at rest, shortness of breath with exertion, wheezing or other Gastrointestinal Gastrointestinal: Denies abdominal pain, coffee ground emesis, constipation, diarrhea, dyspepsia, hematemesis, hematochezia, loose stools, melena, nausea, vomiting or other Genitourinary Genitourinary: Denies burning urination, difficulty urinating, dysuria, hematuria, nocturia, urinary frequency, urinary hesitancy, urinary incontinence, urinary urgency or other Musculoskeletal Musculoskeletal: Reports joint pain and joint swelling; Denies (more content not included)... Normal [facility] HIP, UNI W/ Pelvis 2-3 Views on 03-01-2025 HIP, UNI W/ Pelvis 2-3 Views [facility] Imaging Services [address] [place] [address] HIP, UNI W/ Pelvis 2-3 Views MR#: [id number] Acct: [id number] Name: MICHAELA BRANDT Rep #: [id number] : 1940 F 84 From: Janet Salas nd, MD PCP: Dr. Dillan Santiago MD Status: REG ER Study: HIP, UNI W/ Pelvis 2-3 Views Date of Exam: Exam# [id number] Ordering Dr: Guerrero Valerio DO PROCEDURE: HIP, UNI W/ PELVIS 2-3 VIEWS 03/01/2025 REASON FOR EXAM: INJURY TECHNIQUE: 2 views of the left hip with AP pelvis COMPARISON: None. FINDINGS: Bones: Acute intertrochanteric fracture of the left femur, with mild foreshortening and impaction. Joints: No obvious intra-articular extension of the left hip fracture. 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 Mild bilateral hip joint arthrosis. Soft tissues: Soft tissue swelling. Other: Degenerative changes of the lumbar spine. RAD/HIP, UNI W/ Pelvis 2-3 Views IMPRESSION: Acute intertrochanteric fracture of the left femur. Reading Location: [facility] CC: Dr. Dillan Santiago MD; Dr. Guerrero Valerio DO Harbour Master: Signed Normal [facility] Hematocrit Auto (Bld) [Volum e fraction]Ordered By: Guerrero Valerio on 03-01-2025 Hematocrit (Bld) [Volume fraction] 37.3 % 37-47 [facility] Hemoglobin measurementOrdere d By: Guerrero Valerio on 03-01-2025 Hemoglobin (Bld) [Mass/Vol] 13.0 g/dL 12.0-15.0 [facility] Immature granulocytes/100 WB C Auto (Bld)Ordered By: Guerrero Valerio on 03-01-2025 Immature granulocytes/100 WBC (Bld) 0.600 % 0.0-0.9 [facility] Comment on above: IG% - Immature Granu locytes (promyelocytes, myelocytes and metamyelocytes) > 1% indicates that a LEFT SHIFT is Present. International normalized rat io (INR) calculationOrdered By: Guerrero Valerio on 03-01-2025 INR Coag (Bld) [Relative time] 1.1 {INR} [facility] Knee 1 or 2 Viewson 03-01-20 Knee 1 or 2 Views [facility] Imaging Services [address] [place] [address] Knee 1 or 2 Views MR#: [id number] Acct: [id number] Name: MICHAELA BRANDT Rep #: [id number] : 1940 F 84 From: Janet Salas nd, MD PCP: Dr. Dillan Santiago MD Status: REG ER Study: Knee 1 or 2 Views Date of Exam: 03/01/25 Exam# [id number] Ordering Dr: Guerrero Valerio DO ADDENDUM by Dr. Janet Rabago MD on 03/01/25 at 1310 No acute osseous fracture seen on same day CT of the left knee. The previously visualized osseous fragment along the distal lateral left femoral condyle is secondary to diffuse bone lucency and probable nutrient channel. Reading Location: [facility] 03/01/25 1311 Date cc: Dr. Dillan Santiago MD; Dr. Guerrero Valerio DO * Signed PROCEDURE: KNEE 1 OR 2 VIEWS 03/01/2025 REASON FOR EXAM: INJURY TECHNIQUE: 2 view(s) of the left knee COMPARISON: None. FINDINGS: Bones: Acute fracture deformity of the left lateral femoral condyle, with mild displacement. Joints: No intra-articular involvement of the fracture fragment. Moderate degenerative joint changes. Effusion: Small joint effusion. Soft tissues: Soft tissues are unremarkable. Other: Vascular calcifications. RAD/Knee 1 or 2 Views IMPRESSION: Acute fracture of the left lateral femoral condyle. Reading Location: [facility] CC: Dr. Dillan Santiago MD; Dr. Guerrero Valerio DO Harbour Master: Signed Normal [facility] Lymphocytes Auto (Unsp spec) [#/Vol]Ordered By: Guerrero Valerio on 03-01-2025 Lymphocytes (Bld) [#/Vol] 0.63 10*3/uL Low 0.83-4.51 [facility] Lymphocytes/100 WBC Auto (Un sp spec)Ordered By: Guerrero Valerio on 03-01-2025 Lymphocytes/100 WBC (Bld) 3.3 % Low 19-41 [facility] MCV (mean corpuscular volume ) determinationOrdered By: Guerrero Valerio on 03-01-2025 MCV (RBC) [Entitic vol] 87.1 fL 81-99 [facility] Mean corpuscular hemoglobin (MCH) determinationOrdered By: Guerrero Valerio on 03-01-2025 MCH (RBC) [Entitic mass] 30.4 pg 27.0-32.0 [facility] Mean corpuscular hemoglobin concentration (MCHC) determinationOrdered By: Guerrero Valerio on 03-01-2025 MCHC (RBC) [Mass/Vol] 34.9 g/dL 32-36 [facility] Mean platelet volume determi nationOrdered By: Guerrero Valerio on 03-01-2025 Platelet mean volume (Bld) [Entitic vol] 10.3 fL 6.2-12.0 [facility] Monocyte percentageOrdered B y: Guerrero Valerio on 03-01-2025 Monocytes/100 WBC (Bld) 3.8 % 0-10 [facility] Neutrophil percentageOrdered By: Guerrero Valerio on 03-01-2025 Neutrophils/100 WBC (Bld) 92.1 % High 47-70 [facility] Nucleated red blood cell per centageOrdered By: Guerrero Valerio on 03-01-2025 Nucleated RBC/100 WBC (Bld) [Ratio] 0 % 0-5 [facility] Partial Thromboplast Timeon 03-01-2025 aPTT Coag (Bld) [Time] 25.8 s Normal 24.1-36.2 [facility] Comment on above: Performed By: #### L 300.4310, L300.3900, L100.0100, L500.2500, BTS ####[facility] [id number] [place], [address] Platelet countOrdered By: Christophe Valerio on 03-01-2025 Platelets (Bld) [#/Vol] 239 10*3/uL 150-450 [facility] Potassium (Unsp spec) [Mass/ Vol]Ordered By: Guerrero Valerio on 03-01-2025 Potassium [Moles/Vol] 4.2 mmol/L 3.3-5.1 [facility] Prothrombin Time w/INRon INR Coag (PPP) [Relative time] 1.1 {INR} Normal [facility] Comment on above: Performed By: #### L 300.4310, L300.3900, L100.0100, L500.2500, BTS ####[facility] [address] [place], [place], [address] PT Coag (PPP) [Time] 14.9 s Normal 11.7-14.[address] [facility] Comment on above: Performed By: #### L 300.4310, L300.3900, L100.0100, L500.2500, BTS ####[facility] [address] [place], [place], [id number] Prothrombin timeOrdered By: Guerrero Valerio on 03-01-2025 PT Coag (PPP) [Time] 14.9 s 11.7-14.[address] [facility] RBC Auto (Bld) [#/Vol]Ordere d By: Guerrero Valerio on 03-01-2025 RBC (Bld) [#/Vol] 4.28 10*6/uL 4.2-5.4 [facility] Serum creatinine measurement (mass/volume)Ordered By: Guerrero Valerio on 03-01-2025 Creatinine [Mass/Vol] 0.90 mg/dL 0.70-1.20 [facility] Serum glucose measurement (m ass/volume)Ordered By: Guerrero Valerio on 03-01-2025 Glucose [Mass/Vol] 148 mg/dL High 70-99 [facility] Serum or plasma calcium thomas urement (mass/volume)Ordered By: Guerrero Valerio on 03-01-2025 Calcium [Mass/Vol] 9.2 mg/dL 7.6-11.0 [facility] Serum or plasma urea nitroge n measurement (mass/volume)Ordered By: Guerrero Valerio on 03-01-2025 Urea nitrogen [Mass/Vol] 16 mg/dL 4-19 [facility] Sodium levelOrdered By: Liborio Valerio on 03-01-2025 Sodium [Moles/Vol] 140 mmol/L 133-145 [facility] Type AND Screenon 03-01-2025 Ab SCREEN GEL Negative Normal [facility] Comment on above: Order Comment: S Performed By: #### L 300.4310, L300.3900, L100.0100, L500.2500, BTS ####[facility] [address] [place], [address] Vitamin D, 25-hydroxyOrdered By: Roro Long on 03-01-2025 Vitamin D 25-Hydroxy 29.9 ng/mL Low 30-[address] [facility] Comment on above: Vitamin D StatusDefi ciency: <20 ng/mL (50nmol/L)Insufficiency: 20-30 ng/mL (50-75 nmol/L)Sufficiency: 30-100 ng/mL (75-250 nmol/L)Toxicity: >100 ng/mL (>250 nmol/L) Vitamin D,25 Hydroxyon 03-01 Vitamin D 25-OH 29.9 ng/mL Low 30-100 [facility] Comment on above: Result Comment: Vaishnavi min D Status Deficiency: <20 ng/mL (50nmol/L) Insufficiency: 20-30 ng/mL (50-75 nmol/L) Sufficiency: 30-100 ng/mL (75-250 nmol/L) Toxicity: >100 ng/mL (>250 nmol/L) Performed By: #### L 506.1001 ####[facility] [address] [place], [place], [id number] White blood cell (WBC) count Ordered By: Guerrero Valerio on 03-01-2025 WBC (Bld) [#/Vol] 18.8 10*3/uL High 4.4-11.0 [facility] aPTT Coag (PPP) [Time]Ordere d By: Guerrero Valerio on 03-01-2025 aPTT Coag (Bld) [Time] 25.8 s 24.1-36.2 [facility] CNPNon 02-27-2025 CNPN Telephone (NAVWST) ARYAMICHAELA MARTINEZ ([id number]) 1940 F Date Time Provider Department 02/27/25 KENTRELL MONTGOMERY During your visit today, we recorded the following information about you: Kentrell Montgomery MSW 02/27/2025 2:27 PM Signed Thomas left message for patient requesting call back to discuss patient home care resource needs. Kentrell Montgomery MSW 02/27/2025 2:53 PM Signed Thomas spoke with patient daughter Maribeth. Maribeth noted that her mother is currently living on [address] [place] is concerned about mother living by herself. There are cameras set up in [facility] to keep watch on patient in case of falls. Discussed different social service agencies and services they offer ie. [facility] and [facility]. Thomas provided patient daughter with [facility] phone number for help with looking at memory care options in the area. Thomas and daughter also discussed different local memory care options ie. [place], [place], [facility], [facility]. Maribeth notes that her mom was not interested in any place that looks like a halfway. Discussed the different options above and layout and levels of care they offer. Maribeth notes that she is going to give Yuko a call from [facility] to see about her assistance as a correction advisor looking at level of care memory care options for patient. Maribeth has this direct number for further assistance. Allergies As of Date: 02/27/2025 (No Known Allergies) Date Reviewed: 02/19/2025 Reviewed by: Carolina Hastings LPN - Fully Assessed Prescriptions as of 03/02/2025 - clonazePAM (KLONOPIN) 0.5 mg tablet Take 1 tablet by mouth three times a day as needed for anxiety for up to 30 days. - ascorbic acid (VITAMIN C ORAL) Take by mouth once daily. - donepezil (ARICEPT) 10 mg tablet Take 1 tablet by mouth daily after breakfast. - clonazePAM (KLONOPIN) 0.5 mg tablet Take 1 tablet by mouth three times a day as needed for anxiety for up to 30 days. Patient should start on January 31, 2025. - Catheter (SELF-CATHETER, FEMALE) 14 Fr misc Self catheterizes four times daily - levothyroxine (EUTHYROX) 50 mcg tablet Take 1 tablet by mouth once daily. - escitalopram oxalate (LEXAPRO) 20 mg tablet Take 1 tablet by mouth once daily. - traZODone (DESYREL) 50 mg tablet Take 1 tablet by mouth daily at bedtime. Problem List As Of Date: 02/27/2025 (None) Encounter Status:Closed by KENTRELL MONTGOMERY on 03/02/25 Normal [facility] Bacteria Ur Culton Bacteria identified Cx Nom (U) CULTURE, URINE: Mixed microbiota, including predominantly: ORGANISM ID: 1 >=100,000 CFU/ml Escherichia coli ORGANISM ID: 1 (ESCHERICHIA COLI) -- ANTIBIOTIC INTERPRETATION CARLTON STATUS REFERENCE RANGE -- Ampicillin S 8 F Susceptible <=8 , Intermediate >8 , Resistant >16 Cefazolin S <=4 F Susceptible 0-16 , Intermediate <0 or >16 , Resistant >16 For uncomplicated urinary tract infections, cefazolin results can be used to predict susceptibility or resistance to cephalexin. Ceftriaxone S <=1 F Susceptible <=1 , Intermediate >1 , Resistant >=4 Cefepime S <=1 F Susceptible <=2 , Susceptible-Dose Dependent >2 , Resistant >=16 Ertapenem S <=0.5 F Susceptible <=0.5 , Intermediate >.5 , Resistant >1 Meropenem S <=0.25 F Susceptible <=1 , Intermediate >1 , Resistant >2 Ampicillin/Sulbact S <=2 F Susceptible <=8 , Intermediate >8 , Resistant >16 Piperacillin/Tazobac S <=4 F Susceptible <16 , Susceptible-Dose Dependent >=16 , Resistant >=32 Gentamicin S <=1 F Susceptible <=2 , Intermediate >2 , Resistant >=8 Tobramycin S <=1 F Susceptible <4 , Intermediate >=4 , Resistant >=8 Trimeth sulfameth S <=20 F Susceptible <=40 , Resistant >40 Ciprofloxacin S <=0.25 F Susceptible <0.5 , Intermediate >=.5 , Resistant >=1 Nitrofurantoin S <=16 F Susceptible <=32 , Intermediate >32 , Resistant >64 Abnormal [facility] Comment on above: Performed By: #### 6 30-4 ####[facility] [id number] [address] [place] CNOVon 02-19-2025 CNOV Office Visit (UCWSTR ) MICHAELA BRANDT ([id number]) 1940 F Date Time Provider Department 02/19/25 11:30 AM [facility]ES [facility] During your visit today, we recorded the following information about you: Temperature Pulse Respiration Blood pressure 98.7 degrees 70/minute 22/minute 145/79 Weight 57 kg Walt Robles APRN.COMMUNITY OUTREACH WORKER 02/19/2025 12:00 PM Signed [facility] Subjective Michaela Koenigjorge is a 84 year old female. Patient presents with: Urinary Problem: Brain fog, 1 day Patient came in with complaints of urinary frequency and brain fog. Daughter says this is usually when she has a UTI. Patient just had one 6 weeks ago was on Keflex did get better. He symptoms started a couple days ago. Patient does self cath. The history is provided by the patient. No humanities and languages professor was used. Review of Systems Constitutional: Negative. HENT: Negative. Objective BP 145/79 Pulse 70 Temp 37.1 ?C (98.7 ?F) Resp 22 Wt 57 kg (125 lb 10.6 oz) LMP (LMP Unknown) SpO2 98% Physical Exam Constitutional: Appearance: Normal appearance. HENT: Right Ear: Tympanic membrane, ear canal and external ear normal. Left Ear: Tympanic membrane, ear canal and external ear normal. Mouth/Throat: Mouth: Mucous membranes are moist. Eyes: Pupils: Pupils are equal, round, and reactive to light. Cardiovascular: Rate and Rhythm: Normal rate and regular rhythm. Heart sounds: Normal heart sounds. Pulmonary: Effort: Pulmonary effort is normal. Breath sounds: Normal breath sounds. Abdominal: General: Abdomen is flat. Palpations: Abdomen is soft. Tenderness: There is no abdominal tenderness. There is no right CVA tenderness, left CVA tenderness or guarding. Neurological: Mental Status: She is alert. PAST MEDICAL HISTORY Diagnosis Date Anxiety Depression Hypothyroidism Neurogenic bladder Thyroid disease PAST SURGICAL HISTORY Procedure Laterality Date HYSTERECTOMY HX SPINE SURGERY HX TOOTH EXTRACTION Wears upper and lower dentures ALLERGIES Patient has no known allergies. MEDICATIONS ascorbic acid (VITAMIN C ORAL) Take by mouth once daily. donepezil (ARICEPT) 10 mg tablet Take 1 tablet by mouth daily after breakfast. clonazePAM (KLONOPIN) 0.5 mg tablet Take 1 tablet by mouth three times a day as needed for anxiety for up to 30 days. Patient should start on January 31, 2025. Catheter (SELF-CATHETER, FEMALE) 14 Fr misc Self catheterizes four times daily levothyroxine (EUTHYROX) 50 mcg tablet Take 1 tablet by mouth once daily. escitalopram oxalate (LEXAPRO) 20 mg tablet Take 1 tablet by mouth once daily. traZODone (DESYREL) 50 mg tablet Take 1 tablet by mouth daily at bedtime. cephALEXin (KEFLEX) 500 mg capsule Take 1 capsule by mouth four times daily for 7 days. clonazePAM (KLONOPIN) 0.5 mg tablet Take 1 tablet by mouth three times a day as needed for anxiety for up to 30 days. (Patient not taking: Reported on 02/04/2025) FAMILY HISTORY Problem Relation Age of Onset Diabetes Mother Coronary Artery Disease Mother Hypertension Mother Prostate Cancer Father Breast Cancer Sister Hypertension Sister Hypertension Maternal Grandmother No Known Problems Maternal Grandfather No Known Problems Paternal Grandmother No Known Problems Paternal Grandfather Leukemia Daughter Hypertension Daughter Thyroid Daughter Social History Tobacco Use Smoking status: Never Smokeless tobacco: Never Vaping Use Vaping status: Never Used Substance Use Topics Alcohol use: Never Drug use: Never {ASSESSMENT/PLAN: 1. Recurrent UTI (urinary tract infection) - ICD9: 599.0, ICD10: N39.0 acute - Send urine for culture - Patient education for prevention given - UA DIP, URINE (POC) - CEPHALEXIN 500 MG CAPSULE Went with Keflex if culture requires antibiotic to be changed please change accordingly. Walt Robles APRN.COMMUNITY OUTREACH WORKER MDM Procedures Allergies As of Date: 02/19/2025 (No Known Allergies) Date Reviewed: 02/19/2025 Reviewed by: Carolina Hastings LPN - Fully Assessed Reason for Visit: Urinary Problem [252] Cmt: Brain fog, 1 day Primary Visit Diagnosis:Recurrent UTI (urinary tract infection) [N39.0] Order(s):UA DIP, URINE (POC) [6041503] Order #: [id number]. #:[id number] cephALEXin (KEFLEX) 500 mg capsuleTake 1 capsule by mouth four times daily for 7 days.Disp: 28 capsuleRfl: 0 Prescriptions as of 02/20/2025 - cephALEXin (KEFLEX) 500 mg capsule Take 1 capsule by mouth four times daily for 7 days. - ascorbic acid (VITAMIN C ORAL) Take by mouth once daily. - donepezil (ARICEPT) 10 mg tablet Take 1 tablet by mouth daily after breakfast. - clonazePAM (KLONOPIN) 0.5 mg tablet Take 1 tablet by mouth three times a day as needed for anxiety for up to 30 days. Patient should start on January 31, 2025. - clonazePAM (KLONOPIN) 0.5 mg (more content not included)... Normal [facility] Markus 02-19-2025 MIK Telephone ([facility]) MICHAELA BRANDT ([id number]) 1940 F Date Time Provider Department 02/19/25 [facility] During your visit today, we recorded the following information about you: Walt Robles APRN.ARIEL 02/19/2025 3:04 PM Signed Please call patient and have her come back in and give a urine culture. Colten Greer MA 02/19/2025 3:21 PM Signed Spoke with patient's daughter. Daughter will bring patient in for urine. Colten Greer MA Allergies As of Date: 02/19/2025 (No Known Allergies) Date Reviewed: 02/19/2025 Reviewed by: Carolina Hastings LPN - Fully Assessed Reason for Visit: Clinical Update [1735] Primary Visit Diagnosis:Urinary frequency [R35.0] Order(s):BACTERIAL CULTURE, URINE [SQURCUL] Order #: [id number] Prescriptions as of 02/19/2025 - cephALEXin (KEFLEX) 500 mg capsule Take 1 capsule by mouth four times daily for 7 days. - ascorbic acid (VITAMIN C ORAL) Take by mouth once daily. - donepezil (ARICEPT) 10 mg tablet Take 1 tablet by mouth daily after breakfast. - clonazePAM (KLONOPIN) 0.5 mg tablet Take 1 tablet by mouth three times a day as needed for anxiety for up to 30 days. Patient should start on January 31, 2025. - clonazePAM (KLONOPIN) 0.5 mg tablet Take 1 tablet by mouth three times a day as needed for anxiety for up to 30 days. - Catheter (SELF-CATHETER, FEMALE) 14 Fr misc Self catheterizes four times daily - levothyroxine (EUTHYROX) 50 mcg tablet Take 1 tablet by mouth once daily. - escitalopram oxalate (LEXAPRO) 20 mg tablet Take 1 tablet by mouth once daily. - traZODone (DESYREL) 50 mg tablet Take 1 tablet by mouth daily at bedtime. Problem List As Of Date: 02/19/2025 (None) Encounter Status:Closed by COLTEN GREER on 02/19/25 Normal [facility] UA DIP, URINE (POC)on 2024 BILIRUBIN UA (POCT) Negative Negative [facility] CLARITY UA (POCT) Clear [facility] COLOR UA (POCT) Dark yellow [facility] d [facility] GLUCOSE UA (POCT) Negative Negative mg/dL [facility] Hemoglobin Ql (U) Trace-intact Abnormal Negative [facility] Interpretation and review of laboratory results Abnormal [facility] KETONE UA (POCT) Negative Negative mg/dL [facility] LEUKOCYTES UA (POCT) Trace Abnormal Negative [facility] NITRITE UA (POCT) Positive Abnormal Negative [facility] PH UA (POCT) 5.5 4.5 - 8.0 [facility] Protein Ql (U) Negative Negative mg/dL [facility] SPECIFIC GRAVITY UA (POCT) 1.025 1.005 - 1.030 [facility] UROBILINOGEN UA (POCT) 1 Supriya l E.U./dL [facility] Location:[address], [place], [address] [facility] POINT OF CARE [facility] CNOVon 02-18-2025 CNOV Office Visit (INTMWS ) MICHAELA BRANDT ([id number]) 1940 F Date Time Provider Department 02/18/25 10:20 AM MARIPOSA SALINAS INTSOL During your visit today, we recorded the following information about you: Pulse Respiration Blood pressure Weight 74/minute 16/minute 122/80 57.6 kg Mariposa Salinas APRN.CNP 02/18/2025 4:19 PM Signed CC: Patient presents with: Recheck: Follow up HPI Michaela Brandt is a 84 year old female who presents today for ear lavage Has history of needing ears cleaned and has not had it done since sometime last year. Denies any ear pain, drainage, fever, chills, loss of hearing, or dizziness. Gets occasionally ringing in her ears but has had this for years. Was going to use debrox ear drops but this was never sent in and doesn't think she would want to use this anyway. REVIEW OF SYSTEMS See HPI PAST MEDICAL HISTORY Diagnosis Date Anxiety Depression Hypothyroidism Neurogenic bladder Thyroid disease PAST SURGICAL HISTORY Procedure Laterality Date HYSTERECTOMY HX SPINE SURGERY HX TOOTH EXTRACTION Wears upper and lower dentures ALLERGIES Patient has no known allergies. MEDICATIONS ascorbic acid (VITAMIN C ORAL) Take by mouth once daily. donepezil (ARICEPT) 10 mg tablet Take 1 tablet by mouth daily after breakfast. clonazePAM (KLONOPIN) 0.5 mg tablet Take 1 tablet by mouth three times a day as needed for anxiety for up to 30 days. Patient should start on January 31, 2025. clonazePAM (KLONOPIN) 0.5 mg tablet Take 1 tablet by mouth three times a day as needed for anxiety for up to 30 days. (Patient not taking: Reported on 02/04/2025) Catheter (SELF-CATHETER, FEMALE) 14 Fr misc Self catheterizes four times daily levothyroxine (EUTHYROX) 50 mcg tablet Take 1 tablet by mouth once daily. escitalopram oxalate (LEXAPRO) 20 mg tablet Take 1 tablet by mouth once daily. traZODone (DESYREL) 50 mg tablet Take 1 tablet by mouth daily at bedtime. FAMILY HISTORY Problem Relation Age of Onset Diabetes Mother Coronary Artery Disease Mother Hypertension Mother Prostate Cancer Father Breast Cancer Sister Hypertension Sister Hypertension Maternal Grandmother No Known Problems Maternal Grandfather No Known Problems Paternal Grandmother No Known Problems Paternal Grandfather Leukemia Daughter Hypertension Daughter Thyroid Daughter Social History Tobacco Use Smoking status: Never Smokeless tobacco: Never Vaping Use Vaping status: Never Used Substance Use Topics Alcohol use: Never Drug use: Never PHYSICAL EXAM BP 122/80 Pulse 74 Resp 16 Wt 57.6 kg (127 lb) LMP (LMP Unknown) SpO2 97% General Appearance: well appearing, in no acute distress, alert Eyes: conjunctiva pink and moist, no icterus, sclera white, non-injected Ears: external ears normal to inspection and palpation, canals clear, Left tympanic membrane normal with small amount of cerumen in canal. , Right tympanic membrane with cerumen impaction prior to irrigation and normal TM post irrigation Health maintenance reviewed with patient: Depression Screening Never done Anxiety Screening Never done DTaP,Tdap,Td Vaccine(1 - Tdap) Never done Bone Density Screening Never done Shingrix Vaccine(2 of 3) due on 01/14/2009 RSV Vaccine(1 - 1-dose 75+ series) Never done Pneumococcal Vaccine: 50+(2 of 2 - PCV) due on 02/28/2020 Influenza Vaccine(1) due on 07/20/2024 Covid-19 Vaccine(2023- season) due on 07/20/2024 Advance Directive Discussion due on 11/19/2024 Diabetes Screening due on 11/17/2027 DATA REVIEWED: No new labs ASSESSMENT/PLAN: 1. Impacted cerumen of right ear - ICD9: 380.4, ICD10: H61.21 Patient tolerated ear lavage well with relief of cerumen impaction Follow up for any concerns - AMBULATORY EAR LAVAGE/IRRIGATION Prescription instructions reviewed with patient as applicable. Potential red flag symptoms discussed with the patient. Reviewed appropriate action plan to take if red flag symptoms occur. Patient agreeable to treatment plan. Mariposa Salinas APRN.[employer] WORKER Medical Decision Making: Problems: Minimal: Self-limited or minor problem Data: Unique test(s) ordered: 1 Risk: Low: Low risk from testing/treatment Medical Decision Making Level: 2 - Straightforward Michaela Davila MA 02/18/2025 4:19 PM Signed Ambulatory Ear Lavage Pre-treatment: No pre-treatment Treatment: Right ear Equipment and Irrigation solution and Volume used: Single use syringe with single use irrigation tip Water Return flow appearance: Debris Patient tolerated procedure: yes Tympanic membrane assessment: Tympanic membrane assessed by LIP pre and post procedure Allergies As of Date: 02/18/2025 (No Known Allergies) Date Reviewed: 02/18/2025 Reviewed by: Michaela Davila MA - Fully Assessed Reason for Visit: Recheck [92] Cmt: Follow up Primary Visit Diagnosis:Impacted cerumen of rig (more content not included)... Normal [facility] TSH SerPl-aCncon 02-17-2025 TSH Qn 1.190 m[IU]/L Normal 0.270-4.200 [facility] Comment on above: Order Comment: Speci men Type: BLOOD SPECIMENOrdering Facility: [facility] Address: [address] [place] [address] Performed By: #### 3 [id number] ####[facility] LABCLIA [id number] JES BROWN [address] CNOVon 02-04-2025 CNOV Office Visit (JOHNSONR ) ALIZAMICHAELA ([id number]) 1940 F Date Time Provider Department 02/04/25 11:30 AM DILLAN SANTIAGO During your visit today, we recorded the following information about you: Pulse Blood pressure Weight 67/minute 131/80 57.4 kg Dillan Santiago MD 02/04/2025 11:58 AM Signed We discussed your memory concerns and medications: - You are currently taking Aricept (donepezil) 5 mg in the evening. I am increasing your dose to 10 mg daily to help enhance your memory. Please take two 5 mg tablets in the morning instead of the evening, as this will provide the best benefit during the day. Take the medication after breakfast to avoid potential stomach upset. This prescription has been sent to your pharmacy with 90 tablets and 3 refills. - Continue taking your other medications as currently prescribed: - Trazodone at night. - Lexapro at night. - Clonazepam: Continue with the current regimen of half a tablet in the morning and a full tablet at night. We discussed your ear concerns: - You have wax buildup in both ears. I recommend using Debrox ear drops: - Apply the drops to the right ear for 4 nights before bed. Lie on your left side for 30 minutes after applying the drops to allow them to work. - After completing treatment for the right ear, repeat the same process for the left ear for 4 nights. - If the wax does not clear after this treatment, we will perform an ear lavage (flushing) at your follow-up visit in 2 weeks. We discussed your digestive health: - You mentioned occasional digestive issues. Please continue eating a balanced diet and consider incorporating fiber, such as Metamucil crackers, into your daily routine to support digestion. Follow-Up: - Please schedule a follow-up visit in 2 weeks to reassess your ears and determine if further treatment, such as ear lavage, is needed. - Contact our office if you experience any side effects from your medications, such as diarrhea, or if you have any new or worsening symptoms. Thank you for your continued efforts in managing your health. Dillan Santiago MD 02/04/2025 3:49 PM Signed Reason for Visit Follow up for MRI results for cognitive issues. MOLLY Jennings is a 84-year-old female, with a history of memory issues, presenting for a review of her MRI results and evaluation of current medications. She is accompanied by her daughter, who is providing additional history. Michaela has been experiencing memory difficulties, particularly with short-term memory, and has been on Aricept 5 mg for the past 30 days to enhance memory function. Her daughter reports that Michaela has not experienced any adverse reactions to the medication. Michaela is also taking trazodone and Lexapro at night, and clonazepam, which was initially prescribed TID PRN. Due to somnolence in the afternoon, the daughter has adjusted the clonazepam dosage to 0.25 mg in the morning and 0.5 mg at night over the past week. Michaela reports a sensation of plugged ears and has a history of regular ear cleanings. She also has a history of digestive issues, including occasional diarrhea, and is taking Maalox and Metamucil crackers to manage these symptoms. Michaela denies frequent diarrhea and attributes her digestive issues to not eating enough. Social History Tobacco Use Smoking status: Never Smokeless tobacco: Never Vaping Use Vaping status: Never Used Substance Use Topics Alcohol use: Never Drug use: Never Past medical history, appointments, medications, allergies reviewed. Pertinent Lab/Diagnostic Studies are reviewed and discussed today Current Outpatient Medications: ascorbic acid (VITAMIN C ORAL) clonazePAM (KLONOPIN) 0.5 mg tablet Catheter (SELF-CATHETER, FEMALE) 14 Fr misc levothyroxine (EUTHYROX) 50 mcg tablet escitalopram oxalate (LEXAPRO) 20 mg tablet traZODone (DESYREL) 50 mg tablet donepezil (ARICEPT) 10 mg tablet clonazePAM (KLONOPIN) 0.5 mg tablet Health Maintenance Depression Screening Anxiety Screening DTaP,Tdap,Td Vaccine(1 - Tdap) Bone Density Screening Shingrix Vaccine(2 of 3) RSV Vaccine(1 - 1-dose 75+ series) Pneumococcal Vaccine: 50+(2 of 2 - PCV) Influenza Vaccine(1) Covid-19 Vaccine( season) Advance Directive Discussion@ Review Of Systems Ears/Nose/Mouth/Throat : (+) hearing changes (plugged ears) Gastrointestinal: (+) diarrhea Neurological: (+) memory loss Physical Exam BP 131/80 Pulse 67 Wt 57.4 kg (126 lb 9.6 oz) LMP (LMP Unknown) SpO2 98% GENERAL: NAD, alert and oriented SKIN: unremarkable, no rash or skin lesions. HEAD: normocephalic EYES: PERRLA, EOMI, conjunctiva clear EARS: external ears normal, canals with cerumen, TM's partially obscured. NOSE/SINUSES: Nares normal. Septum midline. OROPHARYNX: lips, mucosa, and tongue normal, good dentition. No oral lesions noted. NECK: Suppl (more content not included)... Normal [facility] MR Brain WO contraston 01-24 * * *Final Report* * * DATE OF EXAM: Jan 24 2025 2:05PM [facility] 3015 - MRI BRAIN W QUANT WO IVCON / PROCEDURE REASON: Cognitive impairment, mild, so stated * * * * Physician Interpretation * * * * EXAMINATION: MRI 3D BRAIN QUANT, MRI BRAIN W QUANT WO IVCON CLINICAL HISTORY: TECHNIQUE: Axial ISREAL FLAIR, ISREAL T2, diffusion and susceptibility weighted imaging without contrast, using the ADNI dementia protocol and 3-D post-processing using the NeuroQuant software at an independent workstation with concurrent physician supervision and images were created, reviewed and archived. MQ: [id number] COMPARISON: None RESULT: QUALITATIVE: Acute Intracranial Process: None. Chronic Intracranial Process: Scattered patchy areas of increased T2 and FLAIR signal are present in the supratentorial white matter which is a nonspecific finding but likely represents mild chronic microvascular ischemia. Number of chronic lacunar infarcts: None Location of chronic lacunar infarcts: Not applicable Age related white matter changes (ARWMC) rating: White matter lesions: 0 Basal ganglia lesions: 0 Prior intracranial hemorrhage: Parenchymal microhemorrhages: 0 Other (siderosis/macrohemorr hages (>10mm): Not Applicable Amyloid Related Imaging Abnormalities: ARIA-E: N/A ARIA-H Microhemorrhage: N/A ARIA-H Siderosis: N/A Qualitative brain and hippocampal volume loss for age: Cortex: Severe and symmetric White Matter: Moderate and symmetric Hippocampi: Moderate and Symmetric Ventricles: Commensurate with volume loss. Brain Parenchymal Signal and Morphology: The brain parenchyma is otherwise within normal limits of signal and morphology. There is no evidence of an intracranial mass or extraaxial fluid collection. Other Significant Findings: None. QUANTITATIVE: Exam Quality: Good for volumetric analysis. Segmentation: Negligible mismapping by visual inspection. Quantitative Data: Total Hippocampal Volume: Percentile for Age: 1 Asymmetry Index: -4.43 Inferior Lateral Vent Volume: Percentile for age: 96 Asymmetry Index: -13.4 Superior Lateral Vent Volume: Percentile for age: 83 Asymmetry Index: -9.94 Temporal Lobe Cortex Volume: Temporal Lobe Percentile for Age: 4 Temporal Lobe Asymmetry Index: 4.5 Frontal Lobe Cortex Volume: Frontal Lobe Percentile for Age: 58 Frontal Lobe Asymmetry Index: -2.08 Parietal Lobe Cortex Volume: Parietal Lobe Percentile for Age:92 Occipital Lobe Cortex Volume: Occipital Lobe Percentile for Age: 96 Whole Brain Volume Brain Percentile for Age: 1 Concordance between qualitative and quantitative hippocampal volume assessment: Concordant Change in brain volumes: No previous volumetric study for comparison See below for comparison of brain volumes in relation to the prior volumetric study: Not applicable. The prior study was reprocessed with the current algorithm version for adequate comparison. Please note that small variations may be due to standard measurement error. Brain Volume: Current percentile: N/A Previous percentile: N/A Hippocampal Volume: Current percentile: N/A Previous percentile: N/A Superior Lateral Ventricle Volume Change: Current percentile: N/A Previous percentile: N/A Inferior Lateral Ventricle Volume Change: Current percentile: N/A Previous percentile: N/A Mean hippocampal volume loss among normal elderly: 0.7% per year, (-0.3 to 1.7; Will 2008; also Balbir 2010). [facility]/24/[facility]25 * * *Final Report* * * DATE OF EXAM: Jan 24 2025 2:05PM [facility] 3015 - MRI BRAIN W QUANT WO IVCON / PROCEDURE REASON: Cognitive impairment, mild, so stated * * * * Physician Interpretation * * * * EXAMINATION: MRI 3D BRAIN QUANT, MRI BRAIN W QUANT WO IVCON CLINICAL HISTORY: TECHNIQUE: Axial ISREAL FLAIR, ISREAL T2, diffusion and susceptibility weighted imaging without contrast, using the ADNI dementia protocol and 3-D post-processing using the deltamethod software at an independent workstation with concurrent physician supervision and images were created, reviewed and archived. MQ: [id number] COMPARISON: None RESULT: QUALITATIVE: Acute Intracranial Process: None. Chronic Intracranial Process: Scattered patchy areas of increased T2 and FLAIR signal are present in the supratentorial white matter which is a nonspecific finding but likely represents mild chronic microvascular ischemia. Number of chronic lacunar infarcts: None Location of chronic lacunar infarcts: Not applicable Age related white matter changes (ARWMC) rating: White matter lesions: 0 Basal ganglia lesions: 0 Prior intracranial hemorrhage: Parenchymal microhemorrhages: 0 Other (siderosis/macrohemorr hages (>10mm): Not Applicable Amyloid Related Imaging Abnormalities: ARIA-E: N/A ARIA-H Microhemorrhage: N/A ARIA-H Siderosis: N/A Qualitative brain and hippocampal volume loss for age: Cortex: Severe and symmetric White Matter: Moderate and symmetric Hippocampi: Moderate and Symmetric Ventricles: Commensurate with volume loss. Brain Parenchymal Signal and Morphology: The brain parenchyma is otherwise within normal limits of signal and morphology. There is no evidence of an intracranial mass or extraaxial fluid collection. Other Significant Findings: None. QUANTITATIVE: Exam Quality: Good for volumetric analysis. Segmentation: Negligible mismapping by visual inspection. Quantitative Data: Total Hippocampal Volume: Percentile for Age: 1 Asymmetry Index: -4.43 Inferior Lateral Vent Volume: Percentile for age: 96 Asymmetry Index: -13.4 Superior Lateral Vent Volume: Percentile for age: 83 Asymmetry Index: -9.94 Temporal Lobe Cortex Volume: Temporal Lobe Percentile for Age: 4 Temporal Lobe Asymmetry Index: 4.5 Frontal Lobe Cortex Volume: Frontal Lobe Percentile for Age: 58 Frontal Lobe Asymmetry Index: -2.08 Parietal Lobe Cortex Volume: Parietal Lobe Percentile for Age:92 Occipital Lobe Cortex Volume: Occipital Lobe Percentile for Age: 96 Whole Brain Volume Brain Percentile for Age: 1 Concordance between qualitative and quantitative hippocampal volume assessment: Concordant Change in brain volumes: No previous volumetric study for comparison See below for comparison of brain volumes in relation to the prior volumetric study: Not applicable. The prior study was reprocessed with the current algorithm version for adequate comparison. Please note that small variations may be due to standard measurement error. Brain Volume: Current percentile: N/A Previous percentile: N/A Hippocampal Volume: Current percentile: N/A Previous percentile: N/A Superior Lateral Ventricle Volume Change: Current percentile: N/A Previous percentile: N/A Inferior Lateral Ventricle Volume Change: Current percentile: N/A Previous percentile: N/A Mean hippocampal volume loss among normal elderly: 0.7% per year, (-0.3 to 1.7; Will 2008; also Balbir 2010). IMPRESSION IMPRESSION: * No evidence of an acute intracranial process or intracranial mass. * Severe generalized volume loss. * Hippocampal volumes at the 1 percentile when compared to age matched normal controls by quantitative analysis. * Mild white matter disease which is nonspecific but likely reflective of chronic microvascular ischemia. * No evidence of parenchymal microhemorrhages by MRI. REFERENCES: White Matter Lesions: 0 = No lesions, including symmetrical, well-defined caps or bands 1 = Focal Lesions 2 = Beginning of [place] 3 = Diffuse Involvement of Entire Region Basal Ganglia Lesions: 0 = No Lesions 1 = 1 Focal Lesion (>5mm) 2 = >1 Focal Lesion (>5mm) 3 = Confluent Lesions Balbir Berg, et al. The clinical use of structural MRI in Alzheimer disease. Nature Reviews Neurology 6;67 (2010). Will et al. Validation of a fully automated 3D hippocampal segmentation method using subjects with Alzheimer's disease mild cognitive impairment, and elderly controls. Neuroimage 43;59 (2008). Wahlund et al. A New Rating Scale for Age-Related White Matter Changes Applicable to MRI and CT. Stroke. 32:1318 (2001). * Asymmetry index defined as difference between left and right volumes divided by mean or [(L-R/Mean) x 100] (%). Age-matched (more content not included)... [facility] MR Unspecified body region 3 D post processingon 01-24-2025 * * *Final Report* * * DATE OF EXAM: Jan 24 2025 2:05PM [facility] 7867 - MRI 3D BRAIN QUANT / PROCEDURE REASON: Cognitive impairment, mild, so stated * * * * Physician Interpretation * * * * EXAMINATION: MRI 3D BRAIN QUANT, MRI BRAIN W QUANT WO IVCON CLINICAL HISTORY: TECHNIQUE: Axial ISREAL FLAIR, ISREAL T2, diffusion and susceptibility weighted imaging without contrast, using the ADNI dementia protocol and 3-D post-processing using the deltamethod software at an independent workstation with concurrent physician supervision and images were created, reviewed and archived. MQ: [id number]_[email or web address] COMPARISON: None RESULT: QUALITATIVE: Acute Intracranial Process: None. Chronic Intracranial Process: Scattered patchy areas of increased T2 and FLAIR signal are present in the supratentorial white matter which is a nonspecific finding but likely represents mild chronic microvascular ischemia. Number of chronic lacunar infarcts: None Location of chronic lacunar infarcts: Not applicable Age related white matter changes (ARWMC) rating: White matter lesions: 0 Basal ganglia lesions: 0 Prior intracranial hemorrhage: Parenchymal microhemorrhages: 0 Other (siderosis/macrohemorr hages (>10mm): Not Applicable Amyloid Related Imaging Abnormalities: ARIA-E: N/A ARIA-H Microhemorrhage: N/A ARIA-H Siderosis: N/A Qualitative brain and hippocampal volume loss for age: Cortex: Severe and symmetric White Matter: Moderate and symmetric Hippocampi: Moderate and Symmetric Ventricles: Commensurate with volume loss. Brain Parenchymal Signal and Morphology: The brain parenchyma is otherwise within normal limits of signal and morphology. There is no evidence of an intracranial mass or extraaxial fluid collection. Other Significant Findings: None. QUANTITATIVE: Exam Quality: Good for volumetric analysis. Segmentation: Negligible mismapping by visual inspection. Quantitative Data: Total Hippocampal Volume: Percentile for Age: 1 Asymmetry Index: -4.43 Inferior Lateral Vent Volume: Percentile for age: 96 Asymmetry Index: -13.4 Superior Lateral Vent Volume: Percentile for age: 83 Asymmetry Index: -9.94 Temporal Lobe Cortex Volume: Temporal Lobe Percentile for Age: 4 Temporal Lobe Asymmetry Index: 4.5 Frontal Lobe Cortex Volume: Frontal Lobe Percentile for Age: 58 Frontal Lobe Asymmetry Index: -2.08 Parietal Lobe Cortex Volume: Parietal Lobe Percentile for Age:92 Occipital Lobe Cortex Volume: Occipital Lobe Percentile for Age: 96 Whole Brain Volume Brain Percentile for Age: 1 Concordance between qualitative and quantitative hippocampal volume assessment: Concordant Change in brain volumes: No previous volumetric study for comparison See below for comparison of brain volumes in relation to the prior volumetric study: Not applicable. The prior study was reprocessed with the current algorithm version for adequate comparison. Please note that small variations may be due to standard measurement error. Brain Volume: Current percentile: N/A Previous percentile: N/A Hippocampal Volume: Current percentile: N/A Previous percentile: N/A Superior Lateral Ventricle Volume Change: Current percentile: N/A Previous percentile: N/A Inferior Lateral Ventricle Volume Change: Current percentile: N/A Previous percentile: N/A Mean hippocampal volume loss among normal elderly: 0.7% per year, (-0.3 to 1.7; Will 2008; also Balbir 2010). [facility] RADIOLOGY Provider, [facility]angley - 01/24/2025 * * *Final Report* * * DATE OF EXAM: Jan 24 2025 2:05PM [facility] 7867 - MRI 3D BRAIN QUANT / PROCEDURE REASON: Cognitive impairment, mild, so stated * * * * Physician Interpretation * * * * EXAMINATION: MRI 3D BRAIN QUANT, MRI BRAIN W QUANT WO IVCON CLINICAL HISTORY: TECHNIQUE: Axial ISREAL FLAIR, ISREAL T2, diffusion and susceptibility weighted imaging without contrast, using the ADNI dementia protocol and 3-D post-processing using the NeuroQuant software at an independent workstation with concurrent physician supervision and images were created, reviewed and archived. MQ: [id number]_[email or web address] COMPARISON: None RESULT: QUALITATIVE: Acute Intracranial Process: None. Chronic Intracranial Process: Scattered patchy areas of increased T2 and FLAIR signal are present in the supratentorial white matter which is a nonspecific finding but likely represents mild chronic microvascular ischemia. Number of chronic lacunar infarcts: None Location of chronic lacunar infarcts: Not applicable Age related white matter changes (ARWMC) rating: White matter lesions: 0 Basal ganglia lesions: 0 Prior intracranial hemorrhage: Parenchymal microhemorrhages: 0 Other (siderosis/macrohemorr hages (>10mm): Not Applicable Amyloid Related Imaging Abnormalities: ARIA-E: N/A ARIA-H Microhemorrhage: N/A ARIA-H Siderosis: N/A Qualitative brain and hippocampal volume loss for age: Cortex: Severe and symmetric White Matter: Moderate and symmetric Hippocampi: Moderate and Symmetric Ventricles: Commensurate with volume loss. Brain Parenchymal Signal and Morphology: The brain parenchyma is otherwise within normal limits of signal and morphology. There is no evidence of an intracranial mass or extraaxial fluid collection. Other Significant Findings: None. QUANTITATIVE: Exam Quality: Good for volumetric analysis. Segmentation: Negligible mismapping by visual inspection. Quantitative Data: Total Hippocampal Volume: Percentile for Age: 1 Asymmetry Index: -4.43 Inferior Lateral Vent Volume: Percentile for age: 96 Asymmetry Index: -13.4 Superior Lateral Vent Volume: Percentile for age: 83 Asymmetry Index: -9.94 Temporal Lobe Cortex Volume: Temporal Lobe Percentile for Age: 4 Temporal Lobe Asymmetry Index: 4.5 Frontal Lobe Cortex Volume: Frontal Lobe Percentile for Age: 58 Frontal Lobe Asymmetry Index: -2.08 Parietal Lobe Cortex Volume: Parietal Lobe Percentile for Age:92 Occipital Lobe Cortex Volume: Occipital Lobe Percentile for Age: 96 Whole Brain Volume Brain Percentile for Age: 1 Concordance between qualitative and quantitative hippocampal volume assessment: Concordant Change in brain volumes: No previous volumetric study for comparison See below for comparison of brain volumes in relation to the prior volumetric study: Not applicable. The prior study was reprocessed with the current algorithm version for adequate comparison. Please note that small variations may be due to standard measurement error. Brain Volume: Current percentile: N/A Previous percentile: N/A Hippocampal Volume: Current percentile: N/A Previous percentile: N/A Superior Lateral Ventricle Volume Change: Current percentile: N/A Previous percentile: N/A Inferior Lateral Ventricle Volume Change: Current percentile: N/A Previous percentile: N/A Mean hippocampal volume loss among normal elderly: 0.7% per year, (-0.3 to 1.7; Will 2008; also Balbir 2010). IMPRESSION IMPRESSION: * No evidence of an acute intracranial process or intracranial mass. * Severe generalized volume loss. * Hippocampal volumes at the 1 percentile when compared to age matched normal controls by quantitative analysis. * Mild white matter disease which is nonspecific but likely reflective of chronic microvascular ischemia. * No evidence of parenchymal microhemorrhages by MRI. REFERENCES: White Matter Lesions: 0 = No lesions, including symmetrical, well-defined caps or bands 1 = Focal Lesions 2 = Beginning of [place] 3 = Diffuse Involvement of Entire Region Basal Ganglia Lesions: 0 = No Lesions 1 = 1 Focal Lesion (>5mm) 2 = >1 Focal Lesion (>5mm) 3 = Confluent Lesions Balbir Berg et al. The clinical use of structural MRI in Alzheimer disease. Nature Reviews Neurology 6;67 (2010). Will et al. Validation of a fully automated 3D hippocampal segmentation method using subjects with Alzheimer's disease mild cognitive impairment, and elderly controls. Neuroimage 43;59 (2008). Michelle et al. A New Rating Scale for Age-Related White Matter Changes Applicable to MRI and CT. Stroke. 32:1318 (2001). * Asymmetry index defined as difference between left and right volumes divided by mean or [(L-R/Mean) x 100] (%). Age-matched referenc (more content not included)... [facility] MRI 3D BRAIN QUANTon 025 MRI 3D BRAIN QUANT * * *Final Report* * * DATE OF EXAM: Jan 24 2025 2:05PM [facility] 7867 - MRI 3D BRAIN QUANT / PROCEDURE REASON: Cognitive impairment, mild, so stated * * * * Physician Interpretation * * * * EXAMINATION: MRI 3D BRAIN QUANT, MRI BRAIN W QUANT WO IVCON CLINICAL HISTORY: TECHNIQUE: Axial ISREAL FLAIR, ISREAL T2, diffusion and susceptibility weighted imaging without contrast, using the ADNI dementia protocol and 3-D post-processing using the deltamethod software at an independent workstation with concurrent physician supervision and images were created, reviewed and archived. MQ: [id number] COMPARISON: None RESULT: QUALITATIVE: Acute Intracranial Process: None. Chronic Intracranial Process: Scattered patchy areas of increased T2 and FLAIR signal are present in the supratentorial white matter which is a nonspecific finding but likely represents mild chronic microvascular ischemia. Number of chronic lacunar infarcts: None Location of chronic lacunar infarcts: Not applicable Age related white matter changes (ARWMC) rating: White matter lesions: 0 Basal ganglia lesions: 0 Prior intracranial hemorrhage: Parenchymal microhemorrhages: 0 Other (siderosis/macrohemorr hages (>10mm): Not Applicable Amyloid Related Imaging Abnormalities: ARIA-E: N/A ARIA-H Microhemorrhage: N/A ARIA-H Siderosis: N/A Qualitative brain and hippocampal volume loss for age: Cortex: Severe and symmetric White Matter: Moderate and symmetric Hippocampi: Moderate and Symmetric Ventricles: Commensurate with volume loss. Brain Parenchymal Signal and Morphology: The brain parenchyma is otherwise within normal limits of signal and morphology. There is no evidence of an intracranial mass or extraaxial fluid collection. Other Significant Findings: None. QUANTITATIVE: Exam Quality: Good for volumetric analysis. Segmentation: Negligible mismapping by visual inspection. Quantitative Data: Total Hippocampal Volume: Percentile for Age: 1 Asymmetry Index: -4.43 Inferior Lateral Vent Volume: Percentile for age: 96 Asymmetry Index: -13.4 Superior Lateral Vent Volume: Percentile for age: 83 Asymmetry Index: -9.94 Temporal Lobe Cortex Volume: Temporal Lobe Percentile for Age: 4 Temporal Lobe Asymmetry Index: 4.5 Frontal Lobe Cortex Volume: Frontal Lobe Percentile for Age: 58 Frontal Lobe Asymmetry Index: -2.08 Parietal Lobe Cortex Volume: Parietal Lobe Percentile for Age:92 Occipital Lobe Cortex Volume: Occipital Lobe Percentile for Age: 96 Whole Brain Volume Brain Percentile for Age: 1 Concordance between qualitative and quantitative hippocampal volume assessment: Concordant Change in brain volumes: No previous volumetric study for comparison See below for comparison of brain volumes in relation to the prior volumetric study: Not applicable. The prior study was reprocessed with the current algorithm version for adequate comparison. Please note that small variations may be due to standard measurement error. Brain Volume: Current percentile: N/A Previous percentile: N/A Hippocampal Volume: Current percentile: N/A Previous percentile: N/A Superior Lateral Ventricle Volume Change: Current percentile: N/A Previous percentile: N/A Inferior Lateral Ventricle Volume Change: Current percentile: N/A Previous percentile: N/A Mean hippocampal volume loss among normal elderly: 0.7% per year, (-0.3 to 1.7; Will 2008; also Balbir 2010). IMPRESSION: * No evidence of an acute intracranial process or intracranial mass. * Severe generalized volume loss. * Hippocampal volumes at the 1 percentile when compared to age matched normal controls by quantitative analysis. * Mild white matter disease which is nonspecific but likely reflective of chronic microvascular ischemia. * No evidence of parenchymal microhemorrhages by MRI. REFERENCES: White Matter Lesions: 0 = No lesions, including symmetrical, well-defined caps or bands 1 = Focal Lesions 2 = Beginning of [place] 3 = Diffuse Involvement of Entire Region Basal Ganglia Lesions: 0 = No Lesions 1 = 1 Focal Lesion (>5mm) 2 = >1 Focal Lesion (>5mm) 3 = Confluent Lesions Balbir Berg et al. The clinical use of structural MRI in Alzheimer disease. Nature Reviews Neurology 6;67 (2010). Will et al. Validation of a fully automated 3D hippocampal segmentation method using subjects with Alzheimer's disease mild cognitive impairment, and elderly controls. Neuroimage 43;59 (2008). Michelle et al. A New Rating Scale for Age-Related White Matter Changes Applicable to MRI and CT. Stroke. 32:1318 (2001). * Asymmetry index defined as difference between left and right volumes divided by mean or [(L-R/Mean) x 100] (%). Age-matched reference charts measure total hippocampal volume (% of intracranial volume). See results from the analysis charts for details. Harbour Master: MINDY Transcribe Date/Time: Jan 24 (more content not included)... [facility] MRI BRAIN W QUANT WO IVCONon 01-24-2025 MRI BRAIN W QUANT WO IVCON * * *Final Report* * * DATE OF EXAM: Jan 24 2025 2:05PM [facility] 3015 - MRI BRAIN W QUANT WO IVCON / PROCEDURE REASON: Cognitive impairment, mild, so stated * * * * Physician Interpretation * * * * EXAMINATION: MRI 3D BRAIN QUANT, MRI BRAIN W QUANT WO IVCON CLINICAL HISTORY: TECHNIQUE: Axial ISREAL FLAIR, ISREAL T2, diffusion and susceptibility weighted imaging without contrast, using the ADNI dementia protocol and 3-D post-processing using the AditiveQuant software at an independent workstation with concurrent physician supervision and images were created, reviewed and archived. MQ: [id number] COMPARISON: None RESULT: QUALITATIVE: Acute Intracranial Process: None. Chronic Intracranial Process: Scattered patchy areas of increased T2 and FLAIR signal are present in the supratentorial white matter which is a nonspecific finding but likely represents mild chronic microvascular ischemia. Number of chronic lacunar infarcts: None Location of chronic lacunar infarcts: Not applicable Age related white matter changes (ARWMC) rating: White matter lesions: 0 Basal ganglia lesions: 0 Prior intracranial hemorrhage: Parenchymal microhemorrhages: 0 Other (siderosis/macrohemorr hages (>10mm): Not Applicable Amyloid Related Imaging Abnormalities: ARIA-E: N/A ARIA-H Microhemorrhage: N/A ARIA-H Siderosis: N/A Qualitative brain and hippocampal volume loss for age: Cortex: Severe and symmetric White Matter: Moderate and symmetric Hippocampi: Moderate and Symmetric Ventricles: Commensurate with volume loss. Brain Parenchymal Signal and Morphology: The brain parenchyma is otherwise within normal limits of signal and morphology. There is no evidence of an intracranial mass or extraaxial fluid collection. Other Significant Findings: None. QUANTITATIVE: Exam Quality: Good for volumetric analysis. Segmentation: Negligible mismapping by visual inspection. Quantitative Data: Total Hippocampal Volume: Percentile for Age: 1 Asymmetry Index: -4.43 Inferior Lateral Vent Volume: Percentile for age: 96 Asymmetry Index: -13.4 Superior Lateral Vent Volume: Percentile for age: 83 Asymmetry Index: -9.94 Temporal Lobe Cortex Volume: Temporal Lobe Percentile for Age: 4 Temporal Lobe Asymmetry Index: 4.5 Frontal Lobe Cortex Volume: Frontal Lobe Percentile for Age: 58 Frontal Lobe Asymmetry Index: -2.08 Parietal Lobe Cortex Volume: Parietal Lobe Percentile for Age:92 Occipital Lobe Cortex Volume: Occipital Lobe Percentile for Age: 96 Whole Brain Volume Brain Percentile for Age: 1 Concordance between qualitative and quantitative hippocampal volume assessment: Concordant Change in brain volumes: No previous volumetric study for comparison See below for comparison of brain volumes in relation to the prior volumetric study: Not applicable. The prior study was reprocessed with the current algorithm version for adequate comparison. Please note that small variations may be due to standard measurement error. Brain Volume: Current percentile: N/A Previous percentile: N/A Hippocampal Volume: Current percentile: N/A Previous percentile: N/A Superior Lateral Ventricle Volume Change: Current percentile: N/A Previous percentile: N/A Inferior Lateral Ventricle Volume Change: Current percentile: N/A Previous percentile: N/A Mean hippocampal volume loss among normal elderly: 0.7% per year, (-0.3 to 1.7; Will 2008; also Balbir 2010). IMPRESSION: * No evidence of an acute intracranial process or intracranial mass. * Severe generalized volume loss. * Hippocampal volumes at the 1 percentile when compared to age matched normal controls by quantitative analysis. * Mild white matter disease which is nonspecific but likely reflective of chronic microvascular ischemia. * No evidence of parenchymal microhemorrhages by MRI. REFERENCES: White Matter Lesions: 0 = No lesions, including symmetrical, well-defined caps or bands 1 = Focal Lesions 2 = Beginning of [place] 3 = Diffuse Involvement of Entire Region Basal Ganglia Lesions: 0 = No Lesions 1 = 1 Focal Lesion (>5mm) 2 = >1 Focal Lesion (>5mm) 3 = Confluent Lesions Balbir Berg et al. The clinical use of structural MRI in Alzheimer disease. Nature Reviews Neurology 6;67 (2010). Will et al. Validation of a fully automated 3D hippocampal segmentation method using subjects with Alzheimer's disease mild cognitive impairment, and elderly controls. Neuroimage 43;59 (2008). Wahlund et al. A New Rating Scale for Age-Related White Matter Changes Applicable to MRI and CT. Stroke. 32:1318 (2001). * Asymmetry index defined as difference between left and right volumes divided by mean or [(L-R/Mean) x 100] (%). Age-matched reference charts measure total hippocampal volume (% of intracranial volume). See results from the analysis charts for details. Harbour Master: MINDY Transcribe Date/Time (more content not included)... [facility] No Panel Informationon 01-24 IMPRESSION: * No evidence of an acute intracranial process or intracranial mass. * Severe generalized volume loss. * Hippocampal volumes at the 1 percentile when compared to age matched normal controls by quantitative analysis. * Mild white matter disease which is nonspecific but likely reflective of chronic microvascular ischemia. * No evidence of parenchymal microhemorrhages by MRI. REFERENCES: White Matter Lesions: 0 = No lesions, including symmetrical, well-defined caps or bands 1 = Focal Lesions 2 = Beginning of [place] 3 = Diffuse Involvement of Entire Region Basal Ganglia Lesions: 0 = No Lesions 1 = 1 Focal Lesion (>5mm) 2 = >1 Focal Lesion (>5mm) 3 = Confluent Lesions Balbir Berg et al. The clinical use of structural MRI in Alzheimer disease. Nature Reviews Neurology 6;67 (2010). Will et al. Validation of a fully automated 3D hippocampal segmentation method using subjects with Alzheimer's disease mild cognitive impairment, and elderly controls. Neuroimage 43;59 (2008). Michelle et al. A New Rating Scale for Age-Related White Matter Changes Applicable to MRI and CT. Stroke. 32:1318 (2001). * Asymmetry index defined as difference between left and right volumes divided by mean or [(L-R/Mean) x 100] (%). Age-matched reference charts measure total hippocampal volume (% of intracranial volume). See results from the analysis charts for details. Harbour Master: MINDY Transcribe Date/Time: Jan 24 2025 2:14P Dictated by : PUJA KIM MD This examination was interpreted and the report reviewed and electronically signed by: PUJA KIM MD on Jan 24 2025 2:29PM [facility] RADIOLOGY Radiology Study observation (narrative) Homer Arenas No Panel InformationOrdered By: Ccf Provider on 01-24-2025 [facility] Urine Cultureon 01-19-2025 [facility] Klebsiella pneumonia e sp pneum [place] Count >100,000 Klebsiella pneumoniae sp pneum: REACTION Ampicillin Islt CARLTON Ampicillin+Sulbac Islt CARLTON 4 S Cefepime Islt CARLTON <=0.12 S cefTRIAXone Islt CARLTON <=0.25 S Ciprofloxacin Islt CARLTON <=0.06 S B-Lactamase Extended Susc Islt NEG Gentamicin Islt CARLTON <=1 S levoFLOXacin Islt CARLTON <=0.12 S Meropenem Islt CARLTON <=0.25 S Nitrofurantoin Islt CARLTON <=16 S Pip+Tazo Islt CARLTON <=4 S TMP SMX Islt CARLTON <=20 S Normal [facility] Comment on above: Performed By: #### L 100.0600 #### [facility] Laboratory [address] [place] [address]. [place], [address] Absolute lymphocyte countOrd ered By: Dominik Galvan on 01-17-2025 Lymphocytes Auto (Unsp spec) [#/Vol] 1.42 10*3/uL 0.83-4.51 [facility] Absolute neutrophil countOrd ered By: Dominik Galvan on 01-17-2025 Neutrophils (Bld) [#/Vol] 10.3 10*3/uL High 2.0-7.7 [facility] Amorphous sediment detection in urine sediment by light microscopyOrdered By: Dominik Galvan on 01-17-2025 Amorphous sediment LM Ql (Urine sed) 1+ URATE [facility] Automated lymphocyte count a s percentage of total leukocytesOrdered By: Dominik Galvan on 01-17-2025 Lymphocytes/100 WBC Auto (Unsp spec) 11.0 % Low 19-41 [facility] BUN/creatinine ratioOrdered By: Dominik Galvan on 01-17-2025 Urea nitrogen/Creatinine [Mass ratio] 20.5 mg/mg High 10-20 [facility] Basophil percentageOrdered B y: Dominik Galvan on 01-17-2025 Basophils/100 WBC (Bld) 0.4 % 0-1 [facility] Bilirubin Test strip Ql (U)O rdered By: Dominik Galvan on 01-17-2025 Bilirubin Ql (U) Negative Negative [facility] Bilirubin, totalOrdered By: Dominik Galvan on 01-17-2025 Bilirubin [Mass/Vol] 1.24 mg/dL 0.00-1.[address] [facility] Brain/Head without Contrasto n 01-17-2025 Brain/Head without Contrast [facility] Imaging Services [address] [place], [place] [address] Brain/Head without Contrast MR#: [id number] Acct: [id number] Name: michaela brandt Rep #: [id number] : 1940 F 84 From: Dominik Thornton MD PCP: NOT,DEFINED Status: PRE ER Study: Brain/Head without Contrast Date of Exam: 12/13 Exam# [id number] Ordering Dr: Dominik Galvan EXAM: BRAIN/HEAD WITHOUT CONTRAST CLINICAL HISTORY: Confusion COMPARISON: None. TECHNIQUE: Noncontrast images of the head with multiplanar reconstructions. Dose reduction techniques were used including intermediate exposure control (AEC),iterative reconstruction technique, and/or mA and/or KV dose adjustments based on patient's size. FINDINGS: CT HEAD FINDINGS: No acute intracranial hemorrhage, mass, mass effect, midline shift or pathologic extra-axial fluid collection. Nonspecific periventricular white matter changes are noted No hydrocephalus. Age- appropriate cerebral volume and white matter. Visualized paranasal sinuses and mastoid air cells are clear. The calvarium is grossly intact. CT/Brain/Head without Contrast IMPRESSION: 1. No acute intracranial abnormality. 2. Age-appropriate volume loss and remote small vessel ischemic changes Reading Location: [facility] CC: ANA Galvan; DEFINED NOT Harbour Master: Signed Normal [facility] CBC W/Diff, Automatedon Absolute Lymph 1.42 X10 3/uL Normal 0.83-4.51 [facility] Comment on above: Performed By: #### L 100.0100, L500.4050 ####[facility] [address] [place], [address] Absolute Neut 10.3 X10 3/uL High 2.0-7.7 [facility] Comment on above: Performed By: #### L 100.0100, L500.4050 ####[facility] [address] [place], [address] Basophils/100 WBC (Bld) 0.4 % Normal 0-1 [facility] Comment on above: Performed By: #### L 100.0100, L500.4050 ####[facility] [address] [place], [address] Eosinophils/100 WBC (Bld) 1.0 % Normal 0-5 [facility] Comment on above: Performed By: #### L 100.0100, L500.4050 ####[facility] [address] [place], [address] Erythrocyte distribution width (RBC) [Ratio] 13.3 % Normal 11.6-14.6 [facility] Comment on above: Performed By: #### L 100.0100, L500.4050 ####[facility] [address] [place], [address] Hematocrit (Bld) [Volume fraction] 35.9 % Low 37-47 [facility] Comment on above: Performed By: #### L 100.0100, L500.4050 ####[facility] [address] [place], [address] Hemoglobin (Bld) [Mass/Vol] 12.3 g/dL Normal 12.0-15.0 [facility] Comment on above: Performed By: #### L 100.0100, L500.4050 ####[facility] [address] [place], [address] IG% 0.400 Normal 0.0-0.9 [facility] Comment on above: Result Comment: IG% - Immature Granulocytes (promyelocytes, myelocytes and metamyelocytes) > 1% indicates that a LEFT SHIFT is Present. Performed By: #### L 100.0100, L500.4050 ####[facility] [address] [place], [address] Lymphocytes/100 WBC (Bld) 11.0 % Low 19-41 [facility] Comment on above: Performed By: #### L 100.0100, L500.4050 ####[facility] [address] [place], [address] MCH (RBC) [Entitic mass] 29.9 pg Normal 27.0-32.0 [facility] Comment on above: Performed By: #### L 100.0100, L500.4050 ####[facility] [address] [place], [address] MCHC (RBC) [Mass/Vol] 34.3 g/dL Normal 32-36 [facility] Comment on above: Performed By: #### L 100.0100, L500.4050 ####[facility] [address] [place], [address] MCV (RBC) [Entitic vol] 87.3 fL Normal 81-99 [facility] Comment on above: Performed By: #### L 100.0100, L500.4050 ####[facility] [address] [place], [address] Monocytes/100 WBC (Bld) 8.1 % Normal 0-10 [facility] Comment on above: Performed By: #### L 100.0100, L500.4050 ####[facility] [address] [place], [address] Neutrophils/100 WBC (Bld) 79.1 % High 47-70 [facility] Comment on above: Performed By: #### L 100.0100, L500.4050 ####[facility] [address] [place], [address] Nucleated RBC (Bld) [#/Vol] 0 10*3/uL Normal 0-5 [facility] Comment on above: Performed By: #### L 100.0100, L500.4050 ####[facility] [address] [place], [address] Platelet mean volume (Bld) [Entitic vol] 10.5 fL Normal 6.2-12.0 [facility] Comment on above: Performed By: #### L 100.0100, L500.4050 ####[facility] [address] [place], [address] Platelets (Bld) [#/Vol] 169 10*3/uL Normal 150-450 [facility] Comment on above: Performed By: #### L 100.0100, L500.4050 ####[facility] [address] [place], [address] RBC (Bld) [#/Vol] 4.11 10*6/uL Low 4.2-5.4 [facility] Comment on above: Performed By: #### L 100.0100, L500.4050 ####[facility] [address] [place], [address] RDW SD 42.1 fl Normal 35.1-43.9 [facility] Comment on above: Performed By: #### L 100.0100, L500.4050 ####[facility] [address] [place], [address] WBC (Bld) [#/Vol] 13.0 10*3/uL High 4.4-11.0 [facility] Comment on above: Performed By: #### L 100.0100, L500.4050 ####[facility] [address] [place], [address] Carbon dioxide measurementOr dered By: Dominik Galvan on 01-17-2025 CO2 [Moles/Vol] 25.5 mmol/L 22.0-29.0 [facility] Chloride measurementOrdered By: Dominik Galvan on 01-17-2025 Chloride [Moles/Vol] 103 mmol/L 96-[address] [facility] Comprehensive Metabolic Prof ilon 01-17-2025 Albumin [Mass/Vol] 4.2 g/dL Normal 3.4-4.8 [facility] Comment on above: Performed By: #### L 100.0100, L500.4050 ####[facility] [address] [place], [address] Albumin/Globulin [Mass ratio] 1.4 {ratio} Normal 0.9-2.4 [facility] Comment on above: Performed By: #### L 100.0100, L500.4050 ####[facility] [address] [place], [address] ALK PHOS 75 U/L Normal 35-104 [facility] Comment on above: Performed By: #### L 100.0100, L500.4050 ####[facility] [address] [place], [address] ALT [Catalytic activity/Vol] 9 U/L Normal <=34 [facility] Comment on above: Performed By: #### L 100.0100, L500.4050 ####[facility] [address] [place], [address] Anion gap [Moles/Vol] 12 mmol/L Normal 5-15 [facility] Comment on above: Performed By: #### L 100.0100, L500.4050 ####[facility] [address] [place], [address] AST [Catalytic activity/Vol] 19 U/L Normal <=31 [facility] Comment on above: Performed By: #### L 100.0100, L500.4050 ####[facility] [address] [place], [address] Bilirubin [Mass/Vol] 1.24 mg/dL Normal 0.00-1.[address] [facility] Comment on above: Performed By: #### L 100.0100, L500.4050 ####[facility] [address] [place], [address] BUN/CRE 20.5 RATIO High 10-20 [facility] Comment on above: Performed By: #### L 100.0100, L500.4050 ####[facility] [address] [place], [address] Calcium [Mass/Vol] 9.7 mg/dL Normal 7.6-11.0 [facility] Comment on above: Performed By: #### L 100.0100, L500.4050 ####[facility] [address] [place], [address] Chloride [Moles/Vol] 103 mmol/L Normal 96-[address] [facility] Comment on above: Performed By: #### L 100.0100, L500.4050 ####[facility] [address] [place], [address] CO2 [Moles/Vol] 25.5 mmol/L Normal 22.0-29.0 [facility] Comment on above: Performed By: #### L 100.0100, L500.4050 ####[facility] [address] [place], [address] Creatinine [Mass/Vol] 0.92 mg/dL Normal 0.70-1.20 [facility] Comment on above: Performed By: #### L 100.0100, L500.4050 ####[facility] [address] [place], [address] GFR/1.73 sq M.predicted among non-blacks MDRD (S/P/Bld) [Vol rate/Area] 61 mL/min/{1.73_m2} Normal >60 [facility] Comment on above: Result Comment: mL/m in/1.73m2 CKD-EPI Creatinine Equation (2020) Performed By: #### L 100.0100, L500.4050 ####[facility] [address] [place], [address] Globulin (S) [Mass/Vol] 3.0 g/dL Normal 2.2-4.2 [facility] Comment on above: Performed By: #### L 100.0100, L500.4050 ####[facility] [address] [place], [address] Glucose [Mass/Vol] 113 mg/dL High 70-99 [facility] Comment on above: Performed By: #### L 100.0100, L500.4050 ####[facility] [address] [place], [address] Potassium [Moles/Vol] 3.9 mmol/L Normal 3.3-5.1 [facility] Comment on above: Performed By: #### L 100.0100, L500.4050 ####[facility] [address] [place], [address] Sodium [Moles/Vol] 140 mmol/L Normal 133-145 [facility] Comment on above: Performed By: #### L 100.0100, L500.4050 ####[facility] [address] [place], [address] T PROT 7.2 g/dL Normal 5.9-8.4 [facility] Comment on above: Performed By: #### L 100.0100, L500.4050 ####[facility] [address] [place], [address] Urea nitrogen [Mass/Vol] 19 mg/dL Normal 4-19 [facility] Comment on above: Performed By: #### L 100.0100, L500.4050 ####[facility] [address] [place], [address] Emergency Department Summary on 01-17-2025 Emergency Department Summary [facility] Medical Records Department [address] [place] [address] Emergency Department Summary 01/17/25 MR#: [id number] Acct: [id number] Name: MICHAELA BRANDT Rep #: [id number] : 1940 84 From: Dominik PEREZ PCP: Dr. Dillan Santiago MD Status:DEP ER Location: ED HPI History of Present Illness Chief Complaint: Confusion Narrative Narrative: Patient is an 84-year-old female with history of chronic back pain, hypertension who does self cath herself 3-4 times per day. Patient is been doing this for greater than 6 years. Patient's daughter thought the patient was more confused today, was more agitated, and they are concerned for a UTI. Patient denies any specific pain, denies any fever chills nausea or vomiting. [facility] Medical History (Updated 01/17/25 @ 19:37 by Dominik Galvan, AMA-C) Self-catheterizes urinary bladder Hypertension Back pain Home Medications ???Medication ???Instructions ???Recorded ???Last Taken ???Type cephalexin 500 mg capsule 500 mg PO TID 7 days #21 caps 12/13 Unknown Rx Allergy/AdvReac Type Severity Reaction Status Date / Time No Known Allergies Allergy Verified 01/17/25 17:55 Social History Smoking Status: Unknown if ever smoked ROS ROS ED ROS Narrative Constitutional: Negative for fever, chills, weight loss, weakness Eyes: Negative for vision loss, vision change, double vision ENT: Negative for any sore throat, ear pain, congestion Cardiovascular: Negative for any chest pain, tightness, palpitations Respiratory: Negative for any cough, sputum production, hemoptysis, dyspnea, dyspnea on exertion, orthopnea Gastrointestinal: Negative for any abdominal pain, nausea, vomiting, diarrhea, constipation, blood in stool, blood in vomit : Negative for any urinary frequency, dysuria, retention, blood in urine Muscle skeletal: Negative for any neck pain, back pain Neurological: Negative for any headache, syncope, dizziness. Positive for more confusion Skin: Negative for any rashes, itching, abrasions, lacerations Psychiatric: Negative for any depression, anxiety, stress, suicidal ideation, homicidal ideation Hematologic: Negative for any excessive bruising, easy bleeding EXAM Physical Exam Narrative Exam Narrative: Vital signs reviewed. Patient is alert orient x 4, patient is in no distress. HEET: Head normocephalic atraumatic, TMs clear bilaterally. Posterior pharynx is clear, moist mucous membranes. Nares clear bilaterally. Neck: Supple with no lymphadenopathy or tenderness. No signs of meningismus. Cardiac: Regular rate and rhythm no murmurs gallops or rubs, equal peripheral pulses bilaterally. Respiratory: Lungs clear to auscultation bilaterally. No chest tenderness. Abdomen: Soft, nontender, nondistended. No abdominal bruit or pulsatile masses. No hepatosplenomegaly Extremities: No peripheral edema, no signs of gross trauma or deformity. Active full range of motion of all extremities. Neuro: Cranial nerves II through XII intact, no focal neurological deficits. NIH stroke scale 0 Skin: Clean dry and intact with no rash, purpura, petechiae, vesicles or pustules. Backs/flank: No CVA tenderness, no midline spinal tenderness, no deformity. Psych: Normal mood and affect. No SI, HI or acute psychosis. Const Vital Signs: 01/17/25 17:55 01/17/25 17:59 01/17/25 18:59 Temperature 98.6 F 98.6 F 98.6 F Temperature Source Oral Oral Oral Pulse Rate 89 89 83 Respiratory Rate 16 16 16 Blood Pressure 151/77 H 151/77 H 145/65 H Blood Pressure Mean 101 101 91 Pulse Ox 100 100 97 Oxygen Delivery Method Room Air Room Air Room Air Physical Exam Const Vital Signs: 01/17/25 17:55 01/17/25 17:59 01/17/25 18:59 Temperature 98.6 F 98.6 F 98.6 F Temperature Source Oral Oral Oral Pulse Rate 89 89 83 Respiratory Rate 16 16 16 Blood Pressure 151/77 H 151/77 H 145/65 H Blood Pressure Mean 101 101 91 Pulse Ox 100 100 97 Oxygen Delivery Method Room Air Room Air Room Air MDM MDM Lab Data Labs: Laboratory Results - last 24 hr 01/17/25 01/17/25 18:35 18:57 WBC 13.0 H RBC 4.11 L Hgb 12.3 Hct 35.9 L MCV 87.3 MCH 29.9 MCHC 34.3 RDW Std Deviation 42.1 RDW Coeff of Leslie 13.3 Plt Count 169 MPV 10.5 Immature Gran % (Auto) 0.400 Neut % (Auto) 79.1 H Lymph % (Auto) 11.0 L [place] % (Auto) 8.1 Eos % (Auto) 1.0 Baso % (Auto) 0.4 Absolute Neuts (auto) 10.3 H Absolute Lymphs (auto) 1.42 Nucleated RBC % 0 Sodium 140 Potassium 3.9 Chloride Direct 103 Carbon Dioxide 25.5 Anion Gap 12 BUN 19 Creatinine 0.92 Est GFR (MDRD) Non-Af 61 BUN/Creatinine Ratio 20.5 H Glucose 113 H Calcium 9.7 Total Bilirubin 1.24 (more content not included)... Normal [facility] Eosinophil percentageOrdered By: Dominik Galvan on 01-17-2025 Eosinophils/100 WBC (Bld) 1.0 % 0-5 [facility] Epithelial cells.squamous LM Ql (Urine sed)Ordered By: Dominik Galvan on 01-17-2025 Epithelial cells.squamous LM.HPF (Urine sed) [#/Area] 0 /[HPF] 5-10 [facility] Erythrocyte distribution wid th (RBC) [Ratio]Ordered By: Dominik Galvan on 01-17-2025 Erythrocyte distribution width (RBC) [Entitic vol] 42.1 fL 35.1-43.9 [facility] Erythrocyte distribution wid th ratioOrdered By: Dominik Galvan on 01-17-2025 Erythrocyte distribution width (RBC) [Ratio] 13.3 % 11.6-14.6 [facility] Erythrocyte distribution wid th standard deviationOrdered By: Dominik Galvan on 01-17-2025 Erythrocyte distribution width (RBC) [Ratio] 42.1 fl 35.1-43.9 [facility] GFR/1.73 sq M.predicted arti g non-blacks MDRD (S/P/Bld) [Vol rate/Area]Ordered By: Dominik Galvan on 01-17-2025 Estimated GFR (MDRD) Non-Af Amer 61 >60 [facility] Comment on above: mL/min/1.73m2 CKD-EP I Creatinine Equation (2020) Glomerular filtration rate ( GFR) estimation/1.73 sq m using serum, plasma, or whole bOrdered By: Dominik Galvan on 01-17-2025 GFR/1.73 sq M.predicted among non-blacks MDRD (S/P/Bld) [Vol rate/Area] 61 mL/min/{1.73_m2} >60 [facility] Comment on above: mL/min/1.73m2 CKD-EP I Creatinine Equation (2020) Glucose Ql (U)Ordered By: Octavio Galvan on 01-17-2025 Urine Glucose (UA) Normal mg/dl Normal [facility] Hematocrit Auto (Bld) [Volum e fraction]Ordered By: Dominik Galvan on 01-17-2025 Hematocrit (Bld) [Volume fraction] 35.9 % Low 37-47 [facility] Hemoglobin measurementOrdere d By: Dominik Galvan on 01-17-2025 Hemoglobin (Bld) [Mass/Vol] 12.3 g/dL 12.0-15.0 [facility] Immature granulocytes/100 WB C Auto (Bld)Ordered By: Dominik Galvan on 01-17-2025 Immature granulocytes/100 WBC (Bld) 0.400 % 0.0-0.9 [facility] Comment on above: IG% - Immature Granu locytes (promyelocytes, myelocytes and metamyelocytes) > 1% indicates that a LEFT SHIFT is Present. Influenza virus A and B and SARS-CoV-2 (COVID-19) and Respiratory syncytial virus RNAOrdered By: Dominik Galvan on 01-17-2025 SARS-CoV-2 (COVID-19) RNA DANIEL+probe Ql (Unsp spec) [facility] Ketones Test strip Ql (U)Ord ered By: Dominik Galvan on 01-17-2025 Ketones Ql (U) Negative Negative [facility] Laboratory - Chemistry and C hemistry - challengeOrdered By: Dominik Galvan on 01-17-2025 AST [Catalytic activity/Vol] 19 U/L <32 [facility] Lymphocytes Auto (Unsp spec) [#/Vol]Ordered By: Dominik Galvan on 01-17-2025 Lymphocytes (Bld) [#/Vol] 1.42 10*3/uL 0.83-4.51 [facility] Lymphocytes/100 WBC Auto (Un sp spec)Ordered By: Dominik Galvan on 01-17-2025 Lymphocytes/100 WBC (Bld) 11.0 % Low 19-41 [facility] M100.678on 01-17-2025 M100.678 Pending SARS-CoV-2 (COVID 19) Negative INFLUENZA A Negative INFLUENZA B Negative RSV PCR Negative Normal [facility] Comment on above: Performed By: #### M 100.678, L400.0001 ####[facility] [address] [place], [address] MCV (mean corpuscular volume ) determinationOrdered By: Dominik Galvan on 01-17-2025 MCV (RBC) [Entitic vol] 87.3 fL 81-99 [facility] Mean corpuscular hemoglobin (MCH) determinationOrdered By: Dominik Galvan on 01-17-2025 MCH (RBC) [Entitic mass] 29.9 pg 27.0-32.0 [facility] Mean corpuscular hemoglobin concentration (MCHC) determinationOrdered By: Dominik Galvan on 01-17-2025 MCHC (RBC) [Mass/Vol] 34.3 g/dL 32-36 [facility] Mean platelet volume determi nationOrdered By: Dominik Galvan on 01-17-2025 Platelet mean volume (Bld) [Entitic vol] 10.5 fL 6.2-12.0 [facility] Microscopic analysis of urin e for red blood cells (RBC)Ordered By: Dominik Galvan on 01-17-2025 Microscopic analysis of urine for red blood cells (RBC) 0-5 SEEN /hpf 0-5 [facility] Urine RBC 0-5 SEEN /hpf 0-5 [facility] Monocyte percentageOrdered B y: Dominik Galvan on 01-17-2025 Monocytes/100 WBC (Bld) 8.1 % 0-10 [facility] Mucus LM Ql (Urine sed)Order ed By: Dominik Galvan on 01-17-2025 Mucus Ql (Urine sed) 0 SEEN /hpf [facility] Neutrophil percentageOrdered By: Dominik Galvan on 01-17-2025 Neutrophils/100 WBC (Bld) 79.1 % High 47-70 [facility] Nitrite Test strip Ql (U)Ord ered By: Dominik Galvan on 01-17-2025 Nitrite Ql (U) Positive High Negative [facility] Nucleated red blood cell per centageOrdered By: Dominik Galvan on 01-17-2025 Nucleated RBC/100 WBC (Bld) [Ratio] 0 % 0-5 [facility] Platelet countOrdered By: Octavio Galvan on 01-17-2025 Platelets (Bld) [#/Vol] 169 10*3/uL 150-450 [facility] Protein Test strip Ql (U)Ord ered By: Dominik Galvan on 01-17-2025 Protein Ql (U) Negative Negative [facility] RBC Auto (Bld) [#/Vol]Ordere d By: Dominik Galvan on 01-17-2025 RBC (Bld) [#/Vol] 4.11 10*6/uL Low 4.2-5.4 [facility] Serum creatinine measurement (mass/volume)Ordered By: Dominik Galvan on 01-17-2025 Creatinine [Mass/Vol] 0.92 mg/dL 0.70-1.20 [facility] Serum globulin measurementOr dered By: Dominik Galvan on 01-17-2025 Globulin (S) [Mass/Vol] 3.0 g/dL 2.2-4.2 [facility] Serum glucose measurement (m ass/volume)Ordered By: Dominik Galvan on 01-17-2025 Glucose [Mass/Vol] 113 mg/dL High 70-99 [facility] Serum or plasma alanine tillman otransferase (ALT) measurementOrdered By: Dominik Galvan on 01-17-2025 ALT [Catalytic activity/Vol] 9 U/L <35 [facility] Serum or plasma albumin thomas urement (mass/volume)Ordered By: Dominik Galvan on 01-17-2025 Albumin [Mass/Vol] 4.2 g/dL 3.4-4.8 [facility] Serum or plasma albumin/glob ulin mass ratioOrdered By: Dominik Galvan on 01-17-2025 Albumin/Globulin [Mass ratio] 1.4 {ratio} 0.9-2.4 [facility] Serum or plasma alkaline mariah sphatase measurementOrdered By: Dominik Galvan on 01-17-2025 ALP [Catalytic activity/Vol] 75 U/L 35-104 [facility] Serum or plasma anion gap de termination (moles/volume)Ordered By: Dominik Galvan on 01-17-2025 Anion gap [Moles/Vol] 12 mmol/L 5-15 [facility] Serum or plasma calcium thomas urement (mass/volume)Ordered By: Dominik Galvan on 01-17-2025 Calcium [Mass/Vol] 9.7 mg/dL 7.6-11.0 [facility] Serum or plasma potassium me asurementOrdered By: Dominik Galvan on 01-17-2025 Potassium [Moles/Vol] 3.9 mmol/L 3.3-5.1 [facility] Serum or plasma sodium measu rement (moles/volume)Ordered By: Dominik Galvan on 01-17-2025 Sodium [Moles/Vol] 140 mmol/L 133-145 [facility] Serum or plasma urea nitroge n measurement (mass/volume)Ordered By: Dominik Galvan on 01-17-2025 Urea nitrogen [Mass/Vol] 19 mg/dL 4-19 [facility] Squamous epithelial cells de tection in urine sediment by light microscopyOrdered By: Dominik Galvan on 01-17-2025 Epithelial cells.squamous LM Ql (Urine sed) 0-5 SEEN /hpf 5-10 [facility] Total proteinOrdered By: Shanna Galvan on 01-17-2025 Protein [Mass/Vol] 7.2 g/dL 5.9-8.4 [facility] Urinalysis, Completeon 01-17 AMORPHOUS 1+ URATE Normal [facility] Comment on above: Order Comment: SHAKA TER SPECIMEN Performed By: #### M 100.678, L400.0001 ####[facility] [address] [place], [address] BACTERIA 3+ /hpf Normal None Seen [facility] Comment on above: Order Comment: SHAKA TER SPECIMEN Performed By: #### M 100.678, L400.0001 ####[facility] [address] [place], [address] EPI,SQUAMOUS 0-5 SEEN Normal 5-10 [facility] Comment on above: Order Comment: SHAKA TER SPECIMEN Performed By: #### M 100.678, L400.0001 ####[facility] [address] [place], [address] RBC 0-5 SEEN Normal 0-5 [facility] Comment on above: Order Comment: SHAKA TER SPECIMEN Performed By: #### M 100.678, L400.0001 ####[facility] [address] [place], [address] WBC 0-5 SEEN Normal 0-5 [facility] Comment on above: Order Comment: SHAKA TER SPECIMEN Performed By: #### M 100.678, L400.0001 ####[facility] [address] [place], [address] Mucus Ql (Urine sed) 0 SEEN Normal [facility] Comment on above: Order Comment: SHAKA TER SPECIMEN Performed By: #### M 100.678, L400.0001 ####[facility] [address] [place], [address] Urine blood detectionOrdered By: Dominik Galvan on 01-17-2025 Urine Occult Blood 25 /ul High Negative [facility] Urine clarityOrdered By: Shanna Galvan on 01-17-2025 Clarity (U) Sl. Cloudy Clear [facility] Urine color determinationOrd ered By: Dominik Galvan on 01-17-2025 Color (U) Yellow Yellow [facility] Urine cultureOrdered By: Yodit Florence on 01-17-2025 Bacteria identified Cx Nom (U) Klebsiella pneumoniae sp pneum Abnormal [facility] Urine glucose detectionOrder ed By: Dominik Galvan on 01-17-2025 Glucose Ql (U) Normal mg/dl Normal [facility] Urine leukocyte esterase det ection by dipstickOrdered By: Dominik Galvan on 01-17-2025 Leukocyte esterase Test strip Ql (U) 25 /ul High Negative [facility] Urine pHOrdered By: Dominik oliveira on 01-17-2025 pH (U) 6.5 [pH] 5.0 - 8.0 [facility] Urine sediment bacteria coun t by microscopy (number/high power field)Ordered By: Dominik Galvan on 01-17-2025 Bacteria LM.HPF (Urine sed) [#/Area] 3 /[HPF] None Seen [facility] Urine specific gravity measu rementOrdered By: Dominik Galvan on 01-17-2025 Specific gravity (U) [Rel density] 1.015 1.002-1.030 [facility] Urine urobilinogen measureme ntOrdered By: Dominik Galvan on 01-17-2025 Urobilinogen Ql (U) 4 mg/dl High Normal [facility] Urobilinogen Ql (U)Ordered B y: Dominik Galvan on 01-17-2025 Urobilinogen (U) [Mass/Vol] 4 mg/dL High Normal [facility] White blood cell (WBC) count Ordered By: Dominik Galvan on 01-17-2025 WBC (Bld) [#/Vol] 13.0 10*3/uL High 4.4-11.0 [facility] White blood cell countOrdere d By: Dominik Galvan on 01-17-2025 Urine WBC 0-5 SEEN /hpf 0-5 [facility] White blood cell count 0-5 SEEN /hpf 0-5 [facility] CNOVon 12-23-2024 CNOV Office Visit (UROLWS ) MICHAELA BRANDT ([id number]) 1940 F Date Time Provider Department 12/23/24 10:00 AM TOM BALTAZAR During your visit today, we recorded the following information about you: Temperature Pulse Respiration Blood pressure 97.4 degrees 80/minute 12/minute 144/64 Weight 59.9 kg Tom Baltazar PA-C 12/23/2024 3:21 PM Signed [facility] [place] [facility] NEW PATIENT CLINIC NOTE (F) SERVICE DATE: December 23, 2024 NAME: Michaela Brandt GENDER: female CHIEF COMPLAINT: History of Urinary Retention establishing with Urology HISTORY OF PRESENT ILLNESS: Michaela Brandt is a 84 year old female new patient here for History of Urinary Retention establishing with Urology since moving to the area The patient reports she has been using [facility] 4 times per day and currently has catheters and will call when she needs ne supply Discussed asymptomatic Bacteruria is likely when getting urine sample with [facility] Instructed the patient to CALL office to get a URINE CULTURE order placed if having UTI symptoms, instead of going to Urgent Care or ER As long as I have seen the patient within 1 year, understanding NO antibiotics will be given until the culture is final If patient has a FEVER > 100.1, we will send her to ER that is not common for uncomplicated UTI LUTS: DYSURIA: no URGENCY: No FREQUENCY:5 per day NOCTURIA: 1 per night STRAINING TO VOID: No EMPTIES COMPLETELY: Yes UTI: No GROSS HEMATURIA: no UA DIPSTICK POSITIVE ONLY: yes LABS: No results found for: PSA Creatinine Date Value Ref Range Status 11/17/2024 0.95 0.58 - 0.96 mg/dL Final MEDICATIONS: Catheter (SELF-CATHETER, FEMALE) 14 Fr misc Self catheterizes four times daily clonazePAM (KLONOPIN) 0.5 mg tablet Take 1 tablet by mouth three times a day as needed for anxiety for up to 30 days. levothyroxine (EUTHYROX) 50 mcg tablet Take 1 tablet by mouth once daily. escitalopram oxalate (LEXAPRO) 20 mg tablet Take 1 tablet by mouth once daily. traZODone (DESYREL) 50 mg tablet Take 1 tablet by mouth daily at bedtime. PAST MEDICAL HISTORY: PAST MEDICAL HISTORY Diagnosis Date Anxiety Depression Hypothyroidism Neurogenic bladder Thyroid disease PAST SURGICAL HISTORY: PAST SURGICAL HISTORY Procedure Laterality Date HYSTERECTOMY HX SPINE SURGERY HX TOOTH EXTRACTION Wears upper and lower dentures FAMILY HISTORY: FAMILY HISTORY Problem Relation Age of Onset Diabetes Mother Coronary Artery Disease Mother Hypertension Mother Prostate Cancer Father Breast Cancer Sister Hypertension Sister Hypertension Maternal Grandmother No Known Problems Maternal Grandfather No Known Problems Paternal Grandmother No Known Problems Paternal Grandfather Leukemia Daughter Hypertension Daughter Thyroid Daughter SOCIAL HISTORY: Social Connections: Not on file REVIEW OF SYSTEMS: GENERAL: No fever, chills, weight loss, or fatigue. ENMT: Negative CARDIOVASCULAR:NO CHEST PAIN, PALPITATIONS, ANKLE EDEMA RESPIRATORY: No chronic cough, wheezing, dyspnea, hemoptysis. GENITOURINARY: SEE HPI MUSCULOSKELETAL:NO CHRONIC BACK PAIN, ARTHRITIS, CHRONIC NECK PAIN SKIN: NO VARICOSE VEINS, RASH, ABNORMAL ITCHING HEME/LYMPH/IMMUNE:Nega tive for prolonged bleeding, bruising easily or swollen nodes NEUROLOGICAL: NO HEADACHES, NUMBNESS, SEIZURES, STROKE DIABETES: No All other systems reviewed and are negative PHYSICAL EXAMINATION: Blood pressure 144/64, pulse 80, temperature 36.3 ?C (97.4 ?F), temperature source Temporal, resp. rate 12, weight 59.9 kg (132 lb), SpO2 97%. GENERAL: WNL nutrition, no deformities, healthy appearing NEURO: Awake, alert and oriented x 3 and Normal gait PSYCH: No signs of depression, anxiety, or agitation ENMT (Ear, Nose, Mouth, Throat): No masses, adenopathy, icterus. Thyroid nonpalpable RESP: NL effort, no retractions or purse-lip breathing. CV: No extremity swelling, varices, edema, pallor, erythema GASTROINTESTINAL: Soft, nontender, nondistended, no masses. HERNIAS: None SKIN: No rash, lesions No palpable lymphadenopathy MUSCULOSKELETAL: Extremities normal. No deformities, edema, clubbing or skin discoloration. PROBLEM LIST REVIEW: Yes LABS: Results for orders placed or performed in visit on 12/23/24 UA DIP, URINE (POC) Result Value Ref Range GLUCOSE UA (POCT) Negative Negative mg/dL BILIRUBIN UA (POCT) Negative Negative KETONE UA (POCT) Negative Negative mg/dL SPECIFIC GRAVITY UA (POCT) >=1.030 1.005 - 1.030 HEMOGLOBIN/BLOOD UA (POCT) Trace-intact (A) Negative PH UA (POCT) 5.0 4.5 - 8.0 PROTEIN UA (POCT) Negative Negative mg/dL UROBILINOGEN UA (POCT) 0.2 Normal E.U./dL NITRITE UA (POCT) Negative Negative LEUKOCYTES UA (POCT) Trace (A) Negative COLOR UA (POCT) Yellow CLARITY UA (POCT) Clear PROCE (more content not included)... Normal [facility] Markus 12-23-2024 ARIELN Telephone (UROLWS) MICHAELA BRANDT ([id number]) 1940 F Date Time Provider Department 12/23/24 TOM BALTAZAR During your visit today, we recorded the following information about you: Nusrat Crespo LPN 12/23/2024 4:46 PM Signed Faxed signed Authorization to Disclose Health Information to [facility] to office of Dr. Ovalle for urological records. RAMIREZ Valdes Kimberly, LPN 12/25/2024 12:50 PM Signed Received one lab from [facility] via [employer]. Uploaded to [employer] via [employer]. Nusrat Crespo LPN Allergies As of Date: 12/23/2024 (No Known Allergies) Date Reviewed: 12/23/2024 Reviewed by: Nusrat Crespo LPN - Fully Assessed Reason for Visit: Request Outside Medical Records [[id number]] Prescriptions as of 12/25/2024 - Catheter (SELF-CATHETER, FEMALE) 14 Fr misc Self catheterizes four times daily - clonazePAM (KLONOPIN) 0.5 mg tablet Take 1 tablet by mouth three times a day as needed for anxiety for up to 30 days. - levothyroxine (EUTHYROX) 50 mcg tablet Take 1 tablet by mouth once daily. - escitalopram oxalate (LEXAPRO) 20 mg tablet Take 1 tablet by mouth once daily. - traZODone (DESYREL) 50 mg tablet Take 1 tablet by mouth daily at bedtime. Problem List As Of Date: 12/23/2024 (None) Encounter Status:Closed by NUSRAT CRESPO on 12/25/24 Normal [facility] UA DIP, URINE (POC)on 2024 BILIRUBIN UA (POCT) Negative Negative [facility] CLARITY UA (POCT) Clear [facility] COLOR UA (POCT) Yellow [facility] GLUCOSE UA (POCT) Negative Negative mg/dL [facility] Hemoglobin Ql (U) Trace-intact Abnormal Negative [facility] Interpretation and review of laboratory results Abnormal [facility] KETONE UA (POCT) Negative Negative mg/dL [facility] LEUKOCYTES UA (POCT) Trace Abnormal Negative [facility] NITRITE UA (POCT) Negative Negative [facility] PH UA (POCT) 5.0 4.5 - 8.0 [facility] Protein Ql (U) Negative Negative mg/dL [facility] SPECIFIC GRAVITY UA (POCT) >=1.030 1.005 - 1.030 [facility] UROBILINOGEN UA (POCT) 0.2 Supriya l E.U./dL [facility] Location:[facility], [address], [place], [place], [id number] [place] [address] POINT OF CARE [facility] CNOVon 12-10-2024 CNOV Office Visit (ELISAIWR ) CRYSTALMICHAELA DORMAN ([id number]) 1940 F Date Time Provider Department 12/10/24 12:30 PM DILLAN SANTIAGO During your visit today, we recorded the following information about you: Dillan Santiago MD 12/10/2024 5:10 PM Signed [facility] Initial Consult Michaela Koenigfabiomary jo is a 84 year old year old female who comes for Comprehensive Geriatric Assessment. Pt accompanied by: daughter Maribeth Caregivers involved in care: HPI: This is a 84-year-old woman with a past medical history of Hypothyroidism, chronic urinary retention which needs self cath, 4 times daily, with insomnia and anxiety. She has been having memory issues for a while, and has been getting worse. She moved recently from her daughters house to be over seen by another daughter Maribeth. The plan is for her to be renting for a while and try to see if she can manage on her own. They are looking into [facility]. Have cameras installed so they can watch her. She needs her pill boxes to be arranged. Does keep overall knowledge of her finances. In our interview today patient is not able to give specifics, she keeps going back to 30 years ago and talks about things in the past all the time, circumventing our conversations to what she knows and feels. Just moved to [place] where her daughter lives after needing to sell her 3 story home to allow her to continue to live independently. Last PCP was Ludin Richey in the [place] area. Is now in her own 1 level apartment. Needs assistance with medication dispensing and is needing support to drive her to appointments and to the store. Is hoping to go to [facility] a few times a week as well. Uses a cane for walking. Last fall was in the last year. Feels unsteady and off balance but no new weakness. Hypothyroidism: Takes medication as ordered. Denies any abnormal change in weight or energy. Previous back surgery in 2010. Has needed to self catheterize for years as a result of this. Is susceptible to UTIs and followed with a urologist in [place]. Denies abdominal pain, fever, chills, or dark/foul smelling urine. Any Family History of dementia? None that they know of. Are you or your spouse a ? Yes Alzheimer Questionnaire Long-term Memory: Difficulty remembering distant events from the past like childhood, previous employment, wedding: NO Behavioral/personality : Withdrawn/Depressed: NO Crying spells: NO Anxious: NO History of aggression: NO History of irritability: YES Apathy:NO Recent changes in weight or appetite: NO Alcohol or Drug use: NO Smoking? NO Sleep: Do you snore loudly (louder than talking or loud enough to be heard through closed doors)? YES Do you often feel tired, fatigued, or sleepy during daytime? NO Has anyone observed you stop breathing during your sleep? NO Are you restless when you sleep at night? NO Do you have problems falling a sleep? NO Do you have problems staying a sleep? NO Psychosis: Hallucinations or delusions: NO Suicidal or homicidal ideations: NO Obsessions, compulsions, or hoarding: NO Safety: Does pt know his/her address? NO What would you do if there was a fire? Took a while to say but she said get to a safe exit How would you call for help? Yes, did not know the number Does he/she know 911? YES Are there any firearms in the home? NO If yes are they in a secure location? No Social History: Primary language: Tongan Marital Status: Living situation: Home w/ Family Socially engaged? (participates in activities such as clubs, restorationist, community center, sports, games, visiting friends/relatives, etc?): YES once a week she goes out. Caregiver [place] and Stress Are your feeling overwhelmed? NO Do you have concerns about your own health? NO Are you neglecting your own needs? NO Do you have financial concerns? NO Do your fear loss of employment? NO Do you have concerns about verbal/physical abuse? NO Do you feel that you are still capable of taking care of your relative? NO Are you willing to continue being in the caregiver role? NO B-ADLs: (I=independent,A=jean tance,D=dependent) ?Bathing: A, some over sight. Dressing: A, some times she needs tips on weather Toileting: I, Transferring:I, using a walker at this time Continence: I, Feeding: I, I-ADLs: Ability to use phone: I, Shopping: A, Cooking: superficial cooking. Housekeeping: A, Laundry: D, Transportation:D, Medications: {I, Handle Finances: A. PMHx: PAST MEDICAL HISTORY Diagnosis Date Anxiety Depression Hypothyroidism Neurogenic bladder Thyroid disease PSHx: PAST SURGICAL HISTORY Procedure Laterality Date HYSTERECTOMY HX SPINE SURGERY HX Home Meds: Prior to Admission medications : Medication levothyroxine (EUTHYROX) 50 (more content not included)... Normal [facility] Markus 12-10-2024 [facility] Telephone (GERIWR) MICHAELA BRANDT ([id number]) 1940 F Date Time Provider Department 12/10/24 DILLAN SANTIAGO During your visit today, we recorded the following information about you: Colten Greer MA 12/10/2024 2:11 PM Signed Patient's daughter states that [facility] needs something from Dr. Santiago that its ok for patient to attend but not sure what exactly is needed. Phone call to [facility] for intake to contact our office to see what information they need from us. EVON Wade Mary, LPN 12/12/2024 2:29 PM Signed Called [facility] for 2nd time, left message with Intake. To call office back [facility]# [phone] Mckenzie Lombardo LPN December 12, 2024 2:29 PM Colten Greer MA 12/16/2024 2:34 PM Signed Spoke with Giovanni at [facility]. Once he has seen the patient and admitted into their program, he will be faxing forms for Dr. Santiago to sign. Patient's daughter informed and we will await forms. Colten Greer MA Allergies As of Date: 12/10/2024 (No Known Allergies) Date Reviewed: 12/10/2024 Reviewed by: Colten Greer MA - Fully Assessed Reason for Visit: Orders [[id number]] Prescriptions as of 12/16/2024 - clonazePAM (KLONOPIN) 0.5 mg tablet Take 1 tablet by mouth three times a day as needed for anxiety for up to 30 days. - levothyroxine (EUTHYROX) 50 mcg tablet Take 1 tablet by mouth once daily. - escitalopram oxalate (LEXAPRO) 20 mg tablet Take 1 tablet by mouth once daily. - traZODone (DESYREL) 50 mg tablet Take 1 tablet by mouth daily at bedtime. Problem List As Of Date: 12/10/2024 (None) Encounter Status:Closed by COLTEN GREER on 12/16/24 Cara [facility] Mark[facility] 11-21-2024 CNPN Telephone (FAMPWS) MICHAELA BRANDT ([id number]) 1940 F Date Time Provider Department 11/21/24 MARIPOSA SALINAS During your visit today, we recorded the following information about you: Mariposa Salinas APRN.CNP 11/21/2024 9:19 AM Signed White blood count elevated. Any sign of infection? Urinary tract infection? Respiratory concerns? Thank you Mariposa Salinas APRN.COMMUNITY OUTREACH WORKER Michaela Davila MA 11/21/2024 11:58 AM Signed Patient states having some respiratory or sinus issues, denies any urinary concerns. Daughter asking if you would like to repeat blood work before next appointment? Allergies As of Date: 11/21/2024 (No Known Allergies) Date Reviewed: 11/05/2024 Reviewed by: Michaela Davila MA - Fully Assessed Reason for Visit: Results [95] Prescriptions as of 03/30/2025 - clonazePAM (KLONOPIN) 0.5 mg tablet Take 1 tablet by mouth three times a day as needed for anxiety for up to 30 days. - ascorbic acid (VITAMIN C ORAL) Take by mouth once daily. - donepezil (ARICEPT) 10 mg tablet Take 1 tablet by mouth daily after breakfast. - clonazePAM (KLONOPIN) 0.5 mg tablet Take 1 tablet by mouth three times a day as needed for anxiety for up to 30 days. Patient should start on January 31, 2025. - Catheter (SELF-CATHETER, FEMALE) 14 Fr misc Self catheterizes four times daily - levothyroxine (EUTHYROX) 50 mcg tablet Take 1 tablet by mouth once daily. - escitalopram oxalate (LEXAPRO) 20 mg tablet Take 1 tablet by mouth once daily. - traZODone (DESYREL) 50 mg tablet Take 1 tablet by mouth daily at bedtime. Problem List As Of Date: 11/21/2024 (None) Encounter Status:Closed by MARIPOSA SALINAS on 03/30/25 Normal [facility] CBC panel Auto (Bld)on 11-17 Erythrocyte distribution width (RBC) [Ratio] 13.2 % Normal 11.5-15.0 [facility] Comment on above: Order Comment: Speci men Type: BLOOD SPECIMENOrdering Facility: [facility] Address: [address] [place] [address] Performed By: #### 5 8410-2 ####[facility] SPRINGSLEDAJitendra [id number] [address] [place] Hematocrit (Bld) [Volume fraction] 37.7 % Normal 36.0-46.0 [facility] Comment on above: Order Comment: Speci men Type: BLOOD SPECIMENOrdering Facility: [facility] Address: [address] [place] [address] Performed By: #### 5 8410-2 ####[facility]ENTERA [id number] [place] [address] [place] Hemoglobin (Bld) [Mass/Vol] 13.1 g/dL Normal 11.5-15.5 [facility] Comment on above: Order Comment: Speci men Type: BLOOD SPECIMENOrdering Facility: [facility] Address: [address] [place] [address] Performed By: #### 5 8410-2 ####[facility] SPRINGSNCLIA [id number] [place] [address] [place] MCH (RBC) [Entitic mass] 30.5 pg Normal 26.0-34.0 [facility] Comment on above: Order Comment: Speci men Type: BLOOD SPECIMENOrdering Facility: [facility] Address: [address] [place] [address] Performed By: #### 5 8410-2 ####[facility] EDWIGE [id number] [place] [address] [place] MCHC (RBC) [Mass/Vol] 34.7 g/dL Normal 30.5-36.0 [facility] Comment on above: Order Comment: Speci men Type: BLOOD SPECIMENOrdering Facility: [facility] Address: [address] [place] [address] Performed By: #### 5 8410-2 ####[facility] SPRINGSNCSHUKRI [id number] [place] [address] [place] MCV (RBC) [Entitic vol] 87.9 fL Normal 80.0-100.0 [facility] Comment on above: Order Comment: Speci men Type: BLOOD SPECIMENOrdering Facility: [facility] Address: [address] [place] [address] Performed By: #### 5 8410-2 ####[facility] [id number] [place] [address] [place] Nucleated RBC (Bld) [#/Vol] 10*3/uL Normal <0.01 [facility] Comment on above: Order Comment: Speci men Type: BLOOD SPECIMENOrdering Facility: [facility] Address: [address] [place] [address] Performed By: #### 5 8410-2 ####[facility] SPRINGSNCLIA [id number] [place] [address] [place] Platelet mean volume (Bld) [Entitic vol] 10.3 fL Normal 9.0-12.7 [facility] Comment on above: Order Comment: Speci men Type: BLOOD SPECIMENOrdering Facility: [facility] Address: [address] [place] [address] Performed By: #### 5 8410-2 ####[facility]ALTHCAREWNCLIA [id number] [place] [address] [place] Platelets (Bld) [#/Vol] 176 10*3/uL Normal 150-400 [facility] Comment on above: Order Comment: Speci men Type: BLOOD SPECIMENOrdering Facility: [facility] Address: [address] [place] [address] Performed By: #### 5 8410-2 ####[facility] SPRINGSNCLIA [id number] [place] [address] [place] RBC (Bld) [#/Vol] 4.29 10*6/uL Normal 3.90-5.20 [facility] Comment on above: Order Comment: Speci men Type: BLOOD SPECIMENOrdering Facility: [facility] Address: [address] [place] [address] Performed By: #### 5 8410-2 ####[facility] SPRINGSNCLIA [id number] [place] [address] [place] WBC (Bld) [#/Vol] 13.60 10*3/uL High 3.70-11.00 [facility] Comment on above: Order Comment: Speci men Type: BLOOD SPECIMENOrdering Facility: [facility] Address: [address] [place] [address] Performed By: #### 5 8410-2 ####[facility] SPRINGSNCLIA [id number] [place] [address] [place] Comprehensive metabolic 2000 panelon 11-17-2024 Albumin [Mass/Vol] 4.0 g/dL Normal 3.9-4.9 [facility] Comment on above: Order Comment: Speci men Type: BLOOD SPECIMENOrdering Facility: [facility] Address: [address] [place] [address] Performed By: #### 2 4323-8 ####[facility] SPRINGSNCLIA [id number] [place] [address] [place] ALP [Catalytic activity/Vol] 78 U/L Normal 34-123 [facility] Comment on above: Order Comment: Speci men Type: BLOOD SPECIMENOrdering Facility: [facility] Address: [address] [place] [address] Performed By: #### 2 4323-8 ####[facility] SPRINGSNCLIA [id number] [place] [address] [place] ALT [Catalytic activity/Vol] 5 U/L Low 7-38 [facility] Comment on above: Order Comment: Speci men Type: BLOOD SPECIMENOrdering Facility: [facility] Address: [address] [place] [address] Performed By: #### 2 4323-8 ####[facility] SPRINGSNCLIA [id number] [place] [address] [place] Anion gap [Moles/Vol] 14 mmol/L Normal 8-15 [facility] Comment on above: Order Comment: Speci men Type: BLOOD SPECIMENOrdering Facility: [facility] Address: [address] [place] [address] Performed By: #### 2 4323-8 ####[facility] SPRINGSNCLIA [id number] [place] [address] [place] AST [Catalytic activity/Vol] 11 U/L Low 13-35 [facility] Comment on above: Order Comment: Speci men Type: BLOOD SPECIMENOrdering Facility: [facility] Address: [address] [place] [address] Performed By: #### 2 4323-8 ####[facility] SPRINGSNCLIA [id number] [place] [address] [place] Bilirubin [Mass/Vol] 1.2 mg/dL Normal 0.2-1.3 [facility] Comment on above: Order Comment: Speci men Type: BLOOD SPECIMENOrdering Facility: [facility] Address: [address] [place], [place] [address] Performed By: #### 2 4323-8 ####[facility] ONEYDAWNCLIA [id number] [place] [address] [place] Calcium [Mass/Vol] 9.3 mg/dL Normal 8.5-10.2 [facility] Comment on above: Order Comment: Speci men Type: BLOOD SPECIMENOrdering Facility: [facility] Address: [address] [place] [address] Performed By: #### 2 4323-8 ####[facility] SPRINGSNCLIA [id number] [place] [address] [place] Chloride [Moles/Vol] 104 mmol/L Normal 98-107 [facility] Comment on above: Order Comment: Speci men Type: BLOOD SPECIMENOrdering Facility: [facility] Address: [address] [place] [address] Performed By: #### 2 4323-8 ####[facility] SPRINGSNCLIA [id number] [place] [address] [place] CO2 [Moles/Vol] 23 mmol/L Normal 22-30 [facility] Comment on above: Order Comment: Speci men Type: BLOOD SPECIMENOrdering Facility: [facility] Address: [address] [place] [address] Performed By: #### 2 4323-8 ####[facility] PARKWAYWNCLIA [id number] [place] [address] [place] Creatinine [Mass/Vol] 0.95 mg/dL Normal 0.58-0.96 [facility] Comment on above: Order Comment: Speci men Type: BLOOD SPECIMENOrdering Facility: [facility] Address: [address] [place] [address] Performed By: #### 2 4323-8 ####[facility] SPRINGSNCDAVIS [facility] [id number] [place] [address] [place] Creatinine and Glomerular filtration rate.predicted panel (S/P/Bld) 59 mL/min/1.73m??? Low >=60 [facility] Comment on above: Order Comment: Marcel hopper Type: BLOOD SPECIMENOrdering Facility: [facility] Address: [address] [place] [address] Result Comment: Linda mated Glomerular Filtration Rate (eGFR) is calculated using the 2020 CKD-EPI creatinine equation. This equation utilizes serum creatinine, sex, and age as parameters. The creatinine assay has traceable calibration to isotope dilution-mass spectrometry. Refer to KDIGO guidelines for clinical interpretation. In patients with unstable renal function, e.g. those with acute kidney injury, the eGFR may not accurately reflect actual GFR. Performed By: #### 2 4323-8 ####[facility] [id number] [place] [address] [place] Glucose [Mass/Vol] 119 mg/dL High 74-99 [facility] Comment on above: Order Comment: Marcel hopper Type: BLOOD SPECIMENOrdering Facility: [facility] Address: [address] [place] [address] Result Comment: The [place] Diabetes Association (ADA) provides guidance for cutoff values for fasting glucose and random glucose. The ADA defines fasting as no caloric intake for at least 8 hours. Fasting plasma glucose results between 100 to 125 mg/dL indicate increased risk for diabetes (prediabetes). Fasting plasma glucose results greater than or equal to 126 mg/dL meet the criteria for diagnosis of diabetes. In the absence of unequivocal hyperglycemia, results should be confirmed by repeat testing. In a patient with classic symptoms of hyperglycemia or hyperglycemic crisis, random plasma glucose results greater than or equal to 200 mg/dL meet the criteria for diagnosis of diabetes. Reference: Standards of Medical Care in Diabetes 2016, [place] [employer] Association. Diabetes Care. 2016.39(Suppl 1). Performed By: #### 2 4323-8 ####[facility] [id number] [place] [id number] [place] Potassium [Moles/Vol] 3.7 mmol/L Normal 3.7-5.1 [facility] Comment on above: Order Comment: Speci men Type: BLOOD SPECIMENOrdering Facility: [facility] Address: [address] [place] [address] Performed By: #### 2 4323-8 ####[facility] MILLWLEDALIA [id number] [place] [address] [place] Protein [Mass/Vol] 6.6 g/dL Normal 6.3-8.0 [facility] Comment on above: Order Comment: Speci men Type: BLOOD SPECIMENOrdering Facility: [facility] Address: [address] [place] [address] Performed By: #### 2 4323-8 ####[facility] SPRINGSNCL[facility] [id number] [place] [address] [place] Sodium [Moles/Vol] 141 mmol/L Normal 136-144 [facility] Comment on above: Order Comment: Speci men Type: BLOOD SPECIMENOrdering Facility: [facility] Address: [address] [place] [address] Performed By: #### 2 4323-8 ####[facility] HOSPITALLIA [id number] [place] [address] [place] Urea nitrogen [Mass/Vol] 23 mg/dL High 7-21 [facility] Comment on above: Order Comment: Speci men Type: BLOOD SPECIMENOrdering Facility: [facility] Address: [address] [place] [address] Performed By: #### 2 4323-8 ####[facility] SPRINGSNCLIA [id number] [place] [address] [place] Lipid 1996 panelon 4 Cholesterol [Mass/Vol] 176 mg/dL Normal <200 [facility] Comment on above: Order Comment: Speci men Type: BLOOD SPECIMENOrdering Facility: [facility] Address: [facility] [place] [address] Result Comment: <200 mg/dL, Desirable 200-239 mg/dL, Borderline high >239 mg/dL, High Performed By: #### 2 4331-1 ####[facility] LABCLIA [id number] [address] [id number] [place] [address] [place]#### 3051-0, 3024-7, 3016-3 ####[facility] LABCLIA [id number] [place] [address] [place] Cholesterol in HDL [Mass/Vol] 52 mg/dL Normal >39 [facility] Comment on above: Order Comment: Speci men Type: BLOOD SPECIMENOrdering Facility: [facility] Address: [address] [place] [address] Result Comment: 40-5 9 mg/dL, Acceptable >59 mg/dL, High: Negative risk factor for coronary heart disease <40 mg/dL, Low: Positive risk factor for coronary heart disease Performed By: #### 2 4331-1 ####[facility] LABCLIA [id number] [address] STATES [facility] [id number] [place] [address] [place]#### 3051-0, 3024-7, 3016-3 ####[facility] LABCLIA [id number] [place] [id number] [place] Cholesterol in LDL [Mass/Vol] 107 mg/dL High <100 [facility] Comment on above: Order Comment: Speci men Type: BLOOD SPECIMENOrdering Facility: [facility] Address: [address] [place], [place] [id number] Result Comment: <100 mg/dL, Optimal 100-129 mg/dL, Near optimal/above optimal 130-159 mg/dL, Borderline high 160-189 mg/dL, High >189 mg/dL, Very high Secondary prevention optimal LDL Cholesterol levels are recommended to be < 70 mg/dL Performed By: #### 2 4331-1 ####[facility] LABIA [id number] [address] [id number] [address]#### 3051-0, 3024-7, 3016-3 ####[facility] [id number] [place] [address] [place] Cholesterol in LDL/Cholesterol in HDL [Mass ratio] 2.06 {ratio} Normal <2.54 [facility] Comment on above: Order Comment: Speci men Type: BLOOD SPECIMENOrdering Facility: [facility] Address: [address] [place] [address] Result Comment: Refe rence: 1. National Cholesterol Education Program ATP III Guideline At-A-Glance Quick Desk Reference: National Heart, Lung, and Blood [place]. National Institutes of Health. 2001: NIH Publication No. 01-3305. 2. An International Atherosclerosis Society position paper: global recommendations for the management of dyslipidemia: executive summary, Atherosclerosis. 2014: 232(2):410-413. Performed By: #### 2 4331-1 ####[facility] LABIA [id number] [address] [id number] [address]#### 3051-0, 3024-7, 3016-3 ####[facility] LABIA [id number] [address] [place] Cholesterol in VLDL [Mass/Vol] 17 mg/dL Normal <30 [facility] Comment on above: Order Comment: Speci men Type: BLOOD SPECIMENOrdering Facility: [facility] Address: [address] [place] [address] Performed By: #### 2 4331-1 ####[facility] LABCLIA [id number] [place] [address] [place] [facility] [id number] [place] [address] [place]#### 3051-0, 3024-7, 3016-3 ####[facility] LABCLIA [id number] [place] [address] [place] Cholesterol non HDL [Mass/Vol] 124 mg/dL Normal <130 [facility] Comment on above: Order Comment: Speci men Type: BLOOD SPECIMENOrdering Facility: [facility] Address: [address] [place] [address] Result Comment: <130 mg/dL, Optimal 130-159 mg/dL, Near optimal/above optimal 160-189 mg/dL, Borderline high 190-219 mg/dL, High >219 mg/dL, Very high Secondary prevention optimal non HDL Cholesterol levels are recommended to be <100 mg/dL Performed By: #### 2 4331-1 ####[facility] LABCLIA [id number] [place] [address] [place] [facility] [id number] [place] [address] [place]#### 3051-0, 3024-7, 3016-3 ####[facility] LABCLIA [id number] [place] [address] [place] Cholesterol.total/Choles terol in HDL [Mass ratio] 3.38 {ratio} Normal <5.10 [facility] Comment on above: Order Comment: Speci men Type: BLOOD SPECIMENOrdering Facility: [facility] Address: [address] [place] [address] Performed By: #### 2 4331-1 ####[facility] LABCLIA [id number] [place] [id number] [facility] [id number] [place] [address] [place]#### 3051-0, 3024-7, 3016-3 ####[facility] LABCLIA [id number] [address] [address] [place] FASTING TIME 14 hrs Normal [facility] Comment on above: Order Comment: Speci men Type: BLOOD SPECIMENOrdering Facility: [facility] Address: [address] [place] [id number] Performed By: #### 2 4331-1 ####[facility] LABCLIA [id number] [address] [id number] [place] [address] [place]#### 3051-0, 3024-7, 3016-3 ####[facility] LABCLIA [id number] [address] [address] [place] Triglyceride [Mass/Vol] 83 mg/dL Normal <150 [facility] Comment on above: Order Comment: Speci men Type: BLOOD SPECIMENOrdering Facility: [facility] Address: [address] [place] [address] Result Comment: <150 mg/dL, Normal 150-199 mg/dL, Borderline high 200-499 mg/dL, High >499 mg/dL, Very high Performed By: #### 2 4331-1 ####[facility] LABCLIA [id number] [address] [address] [place] STATES OF [facility] [id number] [place] [address] [place]#### 3051-0, 3024-7, 3016-3 ####[facility] LABCLIA [id number] [place] [address] [place] T3Free SerPl-mCncon 30-20 24 Free T3 [Mass/Vol] 2.4 pg/mL Normal 2.3-4.1 [facility] Comment on above: Order Comment: Speci men Type: BLOOD SPECIMENOrdering Facility: [facility] Address: [address] [place] [address] Performed By: #### 2 4331-1 ####[facility] LABCLIA [id number] [address] STATES [facility] [id number] [place] [address] [place]#### 3051-0, 7, 6-3 ####[facility] LABCLIA [id number] [place] [address] [place] T4 Free SerPl-mCncon 11-17-2 024 Free T4 [Mass/Vol] 1.2 ng/dL Normal 0.9-1.7 [facility] Comment on above: Order Comment: Speci men Type: BLOOD SPECIMENOrdering Facility: [facility] Address: [address] [place] [address] Performed By: #### 2 4331-1 ####[facility] LABCLIA [id number] [address] STATES OF [facility] [id number] [place] [address] [place]#### 3051-0, 3024-7, 6-3 ####[facility] LABCLIA [id number] [place] [address] [place] TSH SerPl-aCncon 11-17-2024 TSH Qn 1.280 m[IU]/L Normal 0.270-4.200 [facility] Comment on above: Order Comment: Speci men Type: BLOOD SPECIMENOrdering Facility: [facility] Address: [address] [place] [address] Performed By: #### 2 4331-1 ####[facility] LABCLIA [id number] [address] STATES OF [facility] [id number] [place] [address] [place]#### 3051-0, 3024-7, 3016-3 ####[facility] LABCLIA [id number] [address] [place] Vit B12 SerPl-mCncon 024 Cobalamin (Vitamin B12) [Mass/Vol] 404 pg/mL Normal 232-1245 [facility] Comment on above: Order Comment: Speci men Type: BLOOD SPECIMENOrdering Facility: [facility] Address: [address] [place] [address] Performed By: #### 2 132-9 ####[facility] LABIA [id number] [address] [place] CNOVon 11-05-2024 CNOV Office Visit (INTMWS ) MICHAELA BRANDT ([id number]) 1940 F Date Time Provider Department 11/05/24 2:40 PM MARIPOSA SALINAS INTMWS During your visit today, we recorded the following information about you: Pulse Respiration Blood pressure Weight 76/minute 16/minute 118/72 60.8 kg Older, STEVE Monge 11/05/2024 3:38 PM Signed CC: Patient presents with: Establish Care: Establish Care HPI Michaela Brandt is a 84 year old female who presents today for establish care. Just moved to [place] where her daughter lives after needing to sell her 3 story home to allow her to continue to live independently. Last PCP was Ludin Richey in the [place] area. Is now in her own 1 level apartment. Needs assistance with medication dispensing and is needing support to drive her to appointments and to the store. Is hoping to go to [facility] a few times a week as well. Uses a cane for walking. Last fall was in the last year. Feels unsteady and off balance but no new weakness. Anxiety and Depression: Patient feels controlled at this time. Sleep: is described as normal Alcohol use: does not drink any alcohol Drug use: No Appetite: good Stresses: moving here Suicidal Thoughts: No suicidal ideation, intent or plan Support: Comes from multiple sources including family Hypothyroidism: Takes medication as ordered. Denies any abnormal change in weight or energy. Previous back surgery in 2009. Has needed to self catheterize for years as a result of this. Is susceptible to UTIs and followed with a urologist in [place]. Denies abdominal pain, fever, chills, or dark/foul smelling urine. REVIEW OF SYSTEMS General: no fevers, no chills, no night sweats, no recurrent infections, no change in appetite, no change in energy, and no significant changes in weight Respiratory: no cough, no wheezing, no shortness of breath, no hemoptysis Cardiovascular: no chest pain, no chest pressure, no palpitations, and no swelling GI: No nausea, vomiting, or diarrhea Neurologic: No headache, numbness, dizziness, syncope. PAST MEDICAL HISTORY Diagnosis Date Anxiety Depression Thyroid disease PAST SURGICAL HISTORY Procedure Laterality Date HYSTERECTOMY HX JOINT REPLACEMENT HX SPINE SURGERY HX ALLERGIES Patient has no known allergies. MEDICATIONS levothyroxine 50 mcg cap Take 50 mcg by mouth daily before breakfast. clonazePAM (KLONOPIN) 0.5 mg tablet Take 0.5 mg by mouth three times a day as needed for anxiety. escitalopram oxalate (LEXAPRO) 20 mg tablet Take 20 mg by mouth once daily. traZODone (DESYREL) 50 mg tablet Take 50 mg by mouth daily at bedtime. FAMILY HISTORY Problem Relation Age of Onset Diabetes Mother Coronary Artery Disease Mother Hypertension Mother Prostate Cancer Father Breast Cancer Sister Hypertension Sister Leukemia Daughter Hypertension Daughter Thyroid Daughter Social History Tobacco Use Smoking status: Never Smokeless tobacco: Never Vaping Use Vaping status: Never Used Substance Use Topics Alcohol use: Never Drug use: Never PHYSICAL EXAM BP 118/72 Pulse 76 Resp 16 Wt 60.8 kg (134 lb) SpO2 97% General Appearance: well appearing, in no acute distress, alert Pysch: mood and affect broad and appropriate but has dirty patches to her neck and ears and explains she wasn't able to wash herself well prior to moving due to safety concerns. Eyes: PERRLA, EOM's intact, conjunctiva pink and moist, no icterus, sclera white, non-injected Neck: Thyroid normal size and symmetric without palpable nodules, Neck supple, No adenopathy Lymph nodes: No cervical lymphadenopathy and No supraclavicular lymphadenopathy Lungs: Lungs clear to auscultation. No wheezing, rhonchi, rales. Heart: RRR without murmur, gallop, or rubs. No ectopy Abdomen: Abdomen soft, non-tender. Bowel sounds normal. No masses, organomegaly BUE Extremities: No deformities, edema, skin discoloration, clubbing or cyanosis. Good capillary refill. Neurological: Gait slow with purposeful steps, alert and oriented by forgetful of medications.past surgeries/and past events in visit. . Reflexes normal and symmetric. : speech normal, Health maintenance reviewed with patient: Depression Screening Never done Anxiety Screening Never done DTaP,Tdap,Td Vaccine(1 - Tdap) Never done Diabetes Screening Never done Pneumococcal Vaccine: 50+(1 of 1 - PCV) due on 1990 Bone Density Screening Never done Shingrix Vaccine(2 of 3) due on 01/14/2009 RSV Vaccine(1 - 1-dose 75+ series) Never done Advance Directive Discussion Never done Influenza Vaccine(1) Never done Covid-19 Vaccine(3 - 2023- season) due on 07/20/2024 DATA REVIEWED: Outside chart from Dr Richey reviewed. For what was available. ASSESSMENT/PLAN: 1. Encounter to establish care - ICD9: V65.8, ICD10: Z76.89 (primary diagnosis) Need to request (more content not included)... Normal [facility] Culture, Urineon 12-19-2022 Culture, Urine Culture, Urine-: Klebsiella pneumoniae ssp pneumoniae >100,000 CFU/ml ORGANISM: Klebsiella pneumoniae ssp pneumoniae ANTIBIOTIC INTERPRETATION M.I.C. STATUS [ S = SUSCEPTIBLE R = RESISTANT I = INTERMEDIATE ] Amoxicillin/Clavulanat e S 4 F Cefazolin S <=4 F Cefepime S <=0.12 F Cefotaxime S <=0.25 F Cefoxitin S <=4 F Ceftazidime/Avibactam S <=0.12 F Gentamicin S <=1 F Levofloxacin S <=0.12 F Meropenem S <=0.25 F Nitrofurantoin S 32 F Piperacillin/Tazobacta m S <=4 F Trimethoprim/Sulfameth oxazole S <=20 F Normal [facility] Vital Signs Date Time Vital Sign Value Performing Clinician Facility 05-06-2025 11:28-0400 Diastolic blood pressure 64 mm[Hg] Dillan Santiago MD Work Phone: [facility] 05-06-2025 11:28-0400 Systolic blood pressure 144 mm[Hg] Dillan Santiago MD Work Phone: [facility] 05-06-2025 11:27-0400 Body weight 55.79 kg Dillan Santiago MD Work Phone: [facility] 05-06-2025 11:27-0400 Heart rate 62 /min Dillan Santiago MD Work Phone: [facility] 05-06-2025 11:27-0400 Respiratory rate 12 /min Dillan Santiago MD Work Phone: [facility] 05-06-2025 11:27-0400 SaO2% (BldA) [Mass fraction] 98 % Dillan Santiago MD Work Phone: [facility] 04-17-2025 11:23-0400 Diastolic blood pressure 71 mm[Hg] Dillan Santiago MD Work Phone: [facility] 04-17-2025 11:23-0400 Heart rate 67 /min Dillan Santiago MD Work Phone: [facility] 04-17-2025 11:23-0400 Respiratory rate 16 /min Dillan Santiago MD Work Phone: [facility] 04-17-2025 11:23-0400 SaO2% (BldA) [Mass fraction] 98 % Dillan Santiago MD Work Phone: [facility] 04-17-2025 11:23-0400 Systolic blood pressure 124 mm[Hg] Dillan Santiago MD Work Phone: [facility] 03-19-2025 07:51-0400 Body temperature 98.3 [degF] Dr. Vadim Florence DO Work Phone: [facility] 03-19-2025 07:51-0400 Diastolic blood pressure 64 mm[Hg] Dr. Vadim Florence DO Work Phone: [facility] 03-19-2025 07:51-0400 Heart rate 68 /min Dr. Vadim Florence DO Work Phone: [facility] 03-19-2025 07:51-0400 Respiratory rate 16 /min Dr. Vadim Florence DO Work Phone: [facility] 03-19-2025 07:51-0400 SaO2% (BldA) [Mass fraction] 98 % Dr. Vadim Florence DO Work Phone: 5(307)589-966673 [place] [address] 03-19-2025 07:51-0400 Systolic blood pressure 150 mm[Hg] Dr. Vadim Florence DO Work Phone: 0(070)362-395573 [place] [address] 03-17-2025 14:08-0400 Body mass index (BMI) [Ratio] 25.4 kg/m2 Dr. Vadim Florence DO Work Phone: 3(802)769-999973 [place] [address] 03-17-2025 14:08-0400 Body weight 58.[address] Vadim Florence DO Work Phone: 8(331)045-819820 [place] [address] 03-11-2025 10:53-0400 Body temperature 97.7 [degF] Dr. Vadim Florence DO Work Phone: 6(482)874-500120 [place] [address] 03-11-2025 10:53-0400 Diastolic blood pressure 48 mm[Hg] Dr. Vadim Florence DO Work Phone: 5(753)405-665573 [place] [address] 03-11-2025 10:53-0400 Heart rate 67 /min Dr. Vadim Florence DO Work Phone: 8(957)915-268920 [place] [address] 03-11-2025 10:53-0400 Respiratory rate 18 /min Dr. Vadim Florence DO Work Phone: 6(092)238-982373 [place] [address] 03-11-2025 10:53-0400 SaO2% (BldA) [Mass fraction] 100 % Dr. Vadim Florence DO Work Phone: 2(933)280-136773 [place] [address] 03-11-2025 10:53-0400 Systolic blood pressure 118 mm[Hg] Dr. Vadim Florence DO Work Phone: 7(518)396-949273 [place] [address] 03-11-2025 10:52-0400 Body height 152.[address] Vadim Florence DO Work Phone: 5(079)055-728473 [place] [address] 03-11-2025 10:52-0400 Body weight 58.[address] Vadim Florence DO Work Phone: 4(450)192-732873 [place] [address] 03-10-2025 14:50-0400 Body mass index (BMI) [Ratio] 25.4 kg/m2 Dr. Vadim Schwiger DO Work Phone: 3(947)114-263473 [place] [address] 03-04-2025 13:43-0400 Body temperature 98.1 [degF] Dr. Vadim Florence DO Work Phone: 7(922)175-963773 [place] [address] 03-04-2025 13:43-0400 Diastolic blood pressure 52 mm[Hg] Dr. Vadim Florence DO Work Phone: 2(444)015-734373 [place] [address] 03-04-2025 13:43-0400 Heart rate 83 /min Dr. Vadim Florence DO Work Phone: 9(401)080-875973 [place] [address] 03-04-2025 13:43-0400 Respiratory rate 16 /min Dr. Vadim Florence DO Work Phone: 1(081)250-511473 [place] [address] 03-04-2025 13:43-0400 SaO2% (BldA) [Mass fraction] 98 % Dr. Vadim Florence DO Work Phone: 5(199)439-136073 [place] [address] 03-04-2025 13:43-0400 Systolic blood pressure 142 mm[Hg] Dr. Vadim Florence DO Work Phone: 3(808)819-925173 [place] [address] 03-04-2025 11:43-0400 Inhaled oxygen flow rate 97 L/min Dr. Vadim Florence DO Work Phone: 8(791)636-696073 [place] [address] 03-04-2025 05:53-0400 Body mass index (BMI) [Ratio] 25.2 kg/m2 Dr. Vadim Florence DO Work Phone: 3(893)837-054073 [place] [address] 03-04-2025 05:53-0400 Body weight 58.[address] Vadim Florence DO Work Phone: 2(287)977-912673 [place] [address] 03-01-2025 15:09-0400 Body height 152.[address] Vadim Florence DO Work Phone: 4(656)123-545873 [place] [address] 03-01-2025 13:19-0400 Diastolic blood pressure 59 mm[Hg] Dr. Vadim Florence DO Work Phone: 2(867)124-276473 [place] [address] 03-01-2025 13:19-0400 Heart rate 60 /min Dr. Vadim Florence DO Work Phone: [facility] 03-01-2025 13:19-0400 Respiratory rate 21 /min Dr. Vadim Florence DO Work Phone: [facility] 03-01-2025 13:19-0400 SaO2% (BldA) [Mass fraction] 98 % Dr. Vadim Florence DO Work Phone: [facility] 03-01-2025 13:19-0400 Systolic blood pressure 145 mm[Hg] Dr. Vadim Florence DO Work Phone: [facility] 03-01-2025 12:26-0400 Body temperature 97.6 [degF] Dr. Vadim Florence DO Work Phone: [facility] 03-01-2025 11:25-0400 Body height 152.[address] Vadim Florence DO Work Phone: [facility] 03-01-2025 11:25-0400 Body mass index (BMI) [Ratio] 25.7 kg/m2 Dr. Vadim Florence DO Work Phone: [facility] 03-01-2025 11:25-0400 Body weight 59.[address] Vadim Florence DO Work Phone: [facility] 02-19-2025 11:23-0400 Body temperature 98.71 [degF] Walt Robles APRN.COMMUNITY OUTREACH WORKER Work Phone: [facility] 02-19-2025 11:23-0400 Body weight 57 kg Walt Robles APRN.COMMUNITY OUTREACH WORKER Work Phone: [facility] 02-19-2025 11:23-0400 Diastolic blood pressure 79 mm[Hg] Walt Robles APRN.COMMUNITY OUTREACH WORKER Work Phone: [facility] 02-19-2025 11:23-0400 Heart rate 70 /min Walt Robles APRN.COMMUNITY OUTREACH WORKER Work Phone: [facility] 02-19-2025 11:23-0400 Respiratory rate 22 /min Walt Robles QUOTE CLERK.COMMUNITY OUTREACH WORKER Work Phone: [facility] 02-19-2025 11:23-0400 SaO2% (BldA) [Mass fraction] 98 % Walt Robles QUOTE CLERK.COMMUNITY OUTREACH WORKER Work Phone: [facility] 02-19-2025 11:23-0400 Systolic blood pressure 145 mm[Hg] Walt Robles QUOTE CLERK.COMMUNITY OUTREACH WORKER Work Phone: [facility] 02-18-2025 10:20-0400 Body weight 57.61 kg Mariposa Older QUOTE CLERK.COMMUNITY OUTREACH WORKER Work Phone: [facility] 02-18-2025 10:20-0400 Diastolic blood pressure 80 mm[Hg] Mariposa Older QUOTE CLERK.COMMUNITY OUTREACH WORKER Work Phone: [facility] 02-18-2025 10:20-0400 Heart rate 74 /min Mariposa Older QUOTE CLERK.COMMUNITY OUTREACH WORKER Work Phone: [facility] 02-18-2025 10:20-0400 Respiratory rate 16 /min Mariposa Older QUOTE CLERK.COMMUNITY OUTREACH WORKER Work Phone: [facility] 02-18-2025 10:20-0400 SaO2% (BldA) [Mass fraction] 97 % Mariposa Older QUOTE CLERK.COMMUNITY OUTREACH WORKER Work Phone: [facility] 02-18-2025 10:20-0400 Systolic blood pressure 122 mm[Hg] Mariposa Older QUOTE CLERK.COMMUNITY OUTREACH WORKER Work Phone: [facility] 02-04-2025 11:21-0400 Body weight 57.42 kg Dillan Santiago MD Work Phone: [facility] 02-04-2025 11:21-0400 Diastolic blood pressure 80 mm[Hg] Dillan Santiago MD Work Phone: [facility] 02-04-2025 11:21-0400 Heart rate 67 /min Dillan Santiago MD Work Phone: [facility] 02-04-2025 11:21-0400 SaO2% (BldA) [Mass fraction] 98 % Dillan Santiago MD Work Phone: [facility] 02-04-2025 11:21-0400 Systolic blood pressure 131 mm[Hg] Dillan Santiago MD Work Phone: [facility] 01-17-2025 19:54-0500 Body temperature 98.1 [degF] Dr. Vadim Florence DO Work Phone: [facility] 01-17-2025 19:54-0500 Diastolic blood pressure 69 mm[Hg] Dr. Vadim Florence DO Work Phone: [facility] 01-17-2025 19:54-0500 Heart rate 77 /min Dr. Vadim Florence DO Work Phone: [facility] 01-17-2025 19:54-0500 Respiratory rate 19 /min Dr. Vadim Florence DO Work Phone: [facility] 01-17-2025 19:54-0500 SaO2% (BldA) [Mass fraction] 98 % Dr. Vadim Florence DO Work Phone: [facility] 01-17-2025 19:54-0500 Systolic blood pressure 146 mm[Hg] Dr. Vadim Florence DO Work Phone: [facility] 12-23-2024 10:07-0500 Body temperature 97.39 [degF] Tom Baltazar PA-C Work Phone: [facility] 12-23-2024 10:07-0500 Body weight 59.88 kg Tom Baltazar PA-C Work Phone: [facility] 12-23-2024 10:07-0500 Diastolic blood pressure 64 mm[Hg] Tom Baltazar PA-C Work Phone: [facility] Comment on above: Tom notified of blood pressure. No c omplaints from patient. 12-23-2024 10:07-0500 Heart rate 80 /min Tom Baltazar PA-C Work Phone: [facility] 12-23-2024 10:07-0500 Respiratory rate 12 /min Tom Baltazar PA-C Work Phone: [facility] 12-23-2024 10:07-0500 SaO2% (BldA) [Mass fraction] 97 % Tom Baltazar PA-C Work Phone: [facility] 12-23-2024 10:07-0500 Systolic blood pressure 144 mm[Hg] Tom Baltazar PA-C Work Phone: [facility] Comment on above: Tom notified of blood pressure. No c omplaints from patient. 11-05-2024 14:35-0500 Body weight 60.78 kg Mariposa Older QUOTE CLERK.COMMUNITY OUTREACH WORKER Work Phone: [facility] 11-05-2024 14:35-0500 Diastolic blood pressure 72 mm[Hg] Mariposa Older QUOTE CLERK.COMMUNITY OUTREACH WORKER Work Phone: [facility] 11-05-2024 14:35-0500 Heart rate 76 /min Mariposa Older QUOTE CLERK.COMMUNITY OUTREACH WORKER Work Phone: [facility] 11-05-2024 14:35-0500 Respiratory rate 16 /min Mariposa Older QUOTE CLERK.COMMUNITY OUTREACH WORKER Work Phone: [facility] 11-05-2024 14:35-0500 SaO2% (BldA) [Mass fraction] 97 % Mariposa Older QUOTE CLERK.COMMUNITY OUTREACH WORKER Work Phone: [facility] 11-05-2024 14:35-0500 Systolic blood pressure 118 mm[Hg] Mariposa Older QUOTE CLERK.COMMUNITY OUTREACH WORKER Work Phone: [facility] 01-17-2024 13:24-0500 Body height 152.4 cm [facility] 01-17-2024 13:24-0500 Body mass index (BMI) [Ratio] 26.9 kg/m2 [facility] 01-17-2024 13:24-0500 Body weight 62.59 kg [facility] 01-17-2024 13:24-0500 Diastolic blood pressure 82 mm[Hg] [facility] 01-17-2024 13:24-0500 Heart rate 73 /min [facility] 01-17-2024 13:24-0500 Respiratory rate 16 /min [facility] 01-17-2024 13:24-0500 SaO2% (BldA) [Mass fraction] 99 % [facility] 01-17-2024 13:24-0500 Systolic blood pressure 126 mm[Hg] [facility] Encounters Encounter Date Encounter Type Care Provider Facility Start: 05-07-2025 End: 05-08-2025 Follow-up encounter Dillan Santiago MD Work Phone: [facility] [place] Start: 05-07-2025 End: 05-12-2025 Telephone encounter Dillan Santiago MD Work Phone: [facility] [place] Comment on above: [facility] request ing order Start: 05-06-2025 End: 05-07-2025 Telephone encounter Dillan Santiago MD Work Phone: [facility] Comment on above: Anxiety Start: 05-06-2025 End: 05-06-2025 ambulatory [facility] Facility:[facility] Start: 05-06-2025 End: 05-06-2025 Office outpatient visit 25 minutes Dillan Santiago MD Work Phone: Geriatrics Comment on above: Acute heart failure, unspecified heart failure type (HCC) (Primary Dx); Prediabetes; Urinary retention; Acute deep vein thrombosis (DVT) of calf muscle vein of left lower extremity (HCC); Edema, unspecified type; Self-catheterizes urinary bladder; Weakness of both lower extremities; S/P hip hemiarthroplasty Start: 05-06-2025 End: 05-06-2025 ambulatory [facility] Facility:[facility] Start: 05-04-2025 End: 05-04-2025 Telephone encounter Dillan Santiago MD Work Phone: [facility] Comment on above: Edema Start: 05-01-2025 End: 05-02-2025 Refill Mariposa Salinas APRN.CNP Work Phone: [facility] Comment on above: Refill Request Start: 04-27-2025 End: 05-05-2025 Telephone encounter Tom Baltazar PA-C Work Phone: Urology Comment on above: Orders (Self cathete r) Start: 04-24-2025 End: 04-24-2025 ambulatory Dillan Santiago MD Work Phone: [facility] [place] Start: 04-24-2025 End: 04-24-2025 Patient encounter procedure Dillan Santiago MD Work Phone: [facility] Comment on above: Planner Intern referral Start: 04-24-2025 End: 04-28-2025 Telephone encounter Dillan Santiago MD Work Phone: [facility] Comment on above: Patient Update Start: 04-21-2025 End: 04-22-2025 Telephone encounter Dillan Santiago MD Work Phone: [facility] Comment on above: Swelling Start: 04-20-2025 End: 04-20-2025 ambulatory Dillan Santiago MD Work Phone: [facility] Comment on above: Concern in regards t o care Start: 04-20-2025 End: 04-20-2025 Telephone encounter Dillan Santiago MD Work Phone: [facility] Comment on above: Patient Update; Orde rs Start: 04-17-2025 End: 04-20-2025 Telephone encounter Dillan Santiago MD Work Phone: [facility] Comment on above: Follow HH Request information from halfway Start: 04-17-2025 End: 04-17-2025 Office outpatient visit 40 minutes Dillan Santiago MD Work Phone: [facility] [place] Comment on above: Ambulatory dysfuncti on (Primary Dx); Weakness of both lower extremities; Balance disorder; S/P hip hemiarthroplasty; Closed fracture of left hip with delayed healing, subsequent encounter; 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); Pressure injury of sacral region, unstageable (HCC); Urinary catheter in place; Malnutrition, unspecified type (HCC); Anxiety and depression; Insomnia, unspecified type; Acute deep vein thrombosis (DVT) of proximal vein of left lower extremity (HCC); Chronic anticoagulation; Pressure injury of left buttock, stage 3 (HCC) Start: 04-17-2025 End: 04-17-2025 ambulatory [facility] Facility:[facility] Start: 04-06-2025 ambulatory [facility] Facility:[facility] Start: 04-06-2025 Registered Referred Adele Gusman MD -[facility] Start: 03-30-2025 End: 03-30-[address] Vadim Florence DO Work Phone: [facility] Work Phone: Start: 03-30-2025 End: 03-30-2025 Departed Referred Daya PEREZ -[facility] Start: 03-30-2025 End: 03-30-2025 ambulatory [facility] Facility:[facility] Start: 03-23-2025 End: 03-23-2025 Departed Referred Adele Gusman MD -[facility] Start: 03-23-2025 End: 03-23-2025 [facility] Facility:[facility] Start: 03-19-2025 End: 03-19-2025 Telephone encounter Kentrell Haywood Start: 03-09-2025 Non-patient / Non-visit Dr. Vadim munoz MD -[facility] Start: 03-09-2025 End: 03-09-[address] Vadim Florence DO Work Phone: [facility] Work Phone: Start: 03-09-2025 End: 03-09-[address] Garfield Yo MD -[facility] Work Phone: Start: 03-09-2025 End: 03-09-2025 ambulatory [facility] Facility:[facility] Start: 03-04-2025 End: 03-19-2025 Evaluation and management of inpatient Dr. Garfield Yo MD -Transitional Care Unit Start: 03-04-2025 Non-patient / Non-visit Dr. Jessica Tran MD -[facility] Work Phone: Start: 03-03-2025 Non-patient / Non-visit Dr. Jessica Tran MD -[facility] Work Phone: Start: 03-03-2025 End: 03-04-2025 Admission to same day surgery center Dillan Santiago MD Work Phone: Geriatrics Comment on above: Michaela Hip surgery Start: 03-03-2025 End: 03-04-2025 ambulatory Dillan Santiago MD Work Phone: Geriatrics Start: 03-02-2025 Non-patient / Non-visit Dr. Jessica Tran MD -[facility] Work Phone: Start: 03-01-2025 ambulatory [facility] Facility:[facility] Start: 03-01-2025 End: 03-04-2025 Evaluation and management of inpatient Dr. Roro Long DO -Medical Surgical 3 Work Phone: Start: 02-27-2025 End: 03-02-2025 Telephone encounter Kentrell Montgomery CHIEF SAFETY OFFICER Navigation Start: 02-24-2025 End: 02-25-2025 Refill Dillan Santiago MD Work Phone: Geriatrics Comment on above: Refill Request Start: 02-22-2025 End: 02-22-2025 Follow-up encounter Walt Robles APRN.COMMUNITY OUTREACH WORKER Work Phone: [facility] Start: 02-19-2025 End: 02-19-2025 Telephone encounter Walt Robles APRN.COMMUNITY OUTREACH WORKER Work Phone: [facility] Comment on above: Clinical Update Start: 02-19-2025 End: 02-19-2025 ambulatory [facility] Facility:[facility] Start: 02-19-2025 End: 02-19-2025 Patient encounter procedure Walt Robles APRN.COMMUNITY OUTREACH WORKER Work Phone: [facility] Comment on above: Recurrent UTI (urina ry tract infection) (Primary Dx) Start: 02-18-2025 End: 04-20-2025 Follow-up encounter Dillan Santiago MD Work Phone: [facility] [place] Start: 02-18-2025 End: 02-27-2025 ambulatory Dillan Santiago MD Work Phone: Geriatrics Comment on above: Concern for future c are Start: 02-18-2025 End: 02-18-2025 Patient encounter procedure Mariposa Rita FOSSCOMMUNITY OUTREACH WORKER Work Phone: [facility] Comment on above: Impacted cerumen of right ear (Primary Dx) Start: 02-17-2025 End: 02-17-2025 ambulatory DILLAN SANTIAGO Facility:[facility] Start: 02-04-2025 End: 02-04-2025 [facility] Start: 02-04-2025 End: 02-04-2025 Office consultation new/estab patient 60 min Dillan Santiago MD Work Phone: Geriatrics Comment on above: 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, psychotic disturbance, mood disturbance, or anxiety (HCC) (Primary Dx); Impacted cerumen, right ear; Insomnia due to mental disorder; Generalized anxiety disorder Start: 02-02-2025 End: 02-04-2025 Refill Dillan Santiago MD Work Phone: Geriatrics Comment on above: Refill Request Start: 01-28-2025 End: 03-30-2025 Follow-up encounter Dillan Santiago MD Work Phone: Geriatrics Comment on above: Results Start: 01-26-2025 End: 01-27-2025 Refill Dillan Santiago MD Work Phone: [facility] Comment on above: Refill Request Start: 01-24-2025 ambulatory DILLAN SANTIAGO Facility:1 [id number] Start: 01-24-2025 End: 01-24-2025 Subsequent hospital visit by physician [facility] Work Phone: [facility] Comment on above: Cognitive impairment , mild, so stated [G31.84] Start: 01-23-2025 End: 01-27-2025 ambulatory Dillan Santiago MD Work Phone: Geriatrics Comment on above: Clonazepam Start: 01-21-2025 End: 01-22-2025 Refill Dillan Santiago MD Work Phone: [facility] [place] Comment on above: Refill Request Start: 01-17-2025 End: 01-17-2025 Emergency department patient visit Dr. Vadim Florence DO -Emergency Department Work Phone: Start: 01-09-2025 End: 01-13-2025 ambulatory Dillan Santiago MD Work Phone: Geriatrics Comment on above: Handicap placard Start: 01-01-2025 End: 01-02-2025 ambulatory Dillan Santiago MD Work Phone: Geriatrics Comment on above: Taking new medicatio n Aricept Start: 12-31-2024 End: 01-01-2025 Refill Mariposa Older QUOTE CLERK.COMMUNITY OUTREACH WORKER Work Phone: [facility] [place] Comment on above: Refill Request Start: 12-23-2024 End: 12-25-2024 Telephone encounter Tom Baltazar PA-C Work Phone: Urology Comment on above: Request Outside [facility] Start: 12-23-2024 End: 12-23-2024 ambulatory TOM BALTAZAR Facility:[facility] Start: 12-23-2024 End: 12-23-2024 Patient encounter procedure Tom Baltazar PA-C Work Phone: Urology Comment on above: Retention of urine, unspecified (Primary Dx); Self-catheterizes urinary bladder; Urinary problem Start: 12-15-2024 End: 12-15-2024 Refill Mariposa Older QUOTE CLERK.COMMUNITY OUTREACH WORKER Work Phone: [facility] [place] Comment on above: Refill Request Start: 12-12-2024 End: 12-15-2024 Refill Mariposa Older QUOTE CLERK.COMMUNITY OUTREACH WORKER Work Phone: [facility] Comment on above: Refill Request Start: 12-10-2024 End: 12-16-2024 Telephone encounter Dillan Santiago MD Work Phone: Geriatrics Comment on above: Orders Start: 12-10-2024 End: 12-10-2024 Assmt & care planning pt w/cognitive impairment Dillan Santiago MD Work Phone: Geriatrics Comment on above: Cognitive impairment , mild, so stated (Primary Dx); Self-catheterizes urinary bladder; Balance disorder; Concern about memory; Anxiety and depression; Assistance needed for bathing; Ambulates with cane Start: 12-10-2024 End: 12-10-2024 [facility] Facility:[facility] Start: 11-17-2024 End: 11-17-2024 ambulatory [facility] Facility:[facility] Start: 11-11-2024 End: 11-21-2024 Refill Mariposa Salinas QUOTE CLERK.COMMUNITY OUTREACH WORKER Work Phone: [facility] [place] Comment on above: Refill Request clonazePAM refill Start: 11-05-2024 End: 11-05-2024 Patient encounter procedure Mariposa Salinas QUOTE CLERK.COMMUNITY OUTREACH WORKER Work Phone: [facility] [place] Comment on above: Encounter to [facility] (Primary Dx); Anxiety and depression; Hypothyroidism, unspecified type; Balance disorder; Ambulates with cane; Concern about memory; Self-catheterizes urinary bladder; Unable to void; Assistance needed for bathing; Lipid screening; Urinary problem Start: 11-05-2024 End: 11-05-2024 [facility] Facility:[facility] Start: 11-05-2024 End: 11-06-2024 Refill Mariposa Older QUOTE CLERK.COMMUNITY OUTREACH WORKER Work Phone: [facility] [place] Comment on above: Med Change Request Start: 01-17-2024 ambulatory Ludin Boland ty:[facility] Start: 01-17-2024 End: 01-17-2024 ambulatory [facility] Work Phone: Start: 01-17-2024 End: 01-17-2024 Patient encounter procedure [facility] [address] Work Phone: Procedures Date Procedure Procedure Detail Performing Clinician Start: 03-19-[address] Vadim Florence DO Work Phone: Start: 03-11-2025 X-ray of chest, PA a nd lateral views Dr. Vadim Florence DO Work Phone: Start: 03-06-2025 X-ray of knee, one o r two views Dr. Vadim Florence DO Work Phone: Start: 03-04-[address] Vadim Florence DO Work Phone: Start: 03-02-2025 Plain X-ray of hip Dr. Vadim Florence DO Work Phone: Start: 03-02-2025 Open reduction of fr acture of femur with internal fixation Dr. Vadim Florence DO Work Phone: Start: 03-02-2025 Fluoroscopic guidance Veto Florence DO Work Phone: Start: 03-02-2025 Plain X-ray of hip Dr. Vadim Florence DO Work Phone: Start: 03-02-2025 Serum inorganic phos phate measurement Dr. Vadim Florence DO Work Phone: Start: 03-01-2025 Plain chest X-ray Dr. Dayron Florence DO Work Phone: Start: 03-01-2025 CT of head without contrast Dr. Vadim Florence DO Work Phone: Start: 03-01-2025 MRI of lower extremity Dr. Vadim Florence DO Work Phone: Start: 03-01-2025 Vitamin D, 25-hydrox y measurement Dr. Vadim Florence DO Work Phone: Comment on above: Vitamin D StatusDefi ciency: <20 ng/mL (50nmol/L)Insufficiency: 20-30 ng/mL (50-75 nmol/L)Sufficiency: 30-100 ng/mL (75-250 nmol/L)Toxicity: >100 ng/mL (>250 nmol/L) Start: 03-01-2025 Plain x-ray of pelvi s and lower extremity Dr. Vadim Florence DO Work Phone: Start: 03-01-2025 X-ray of knee, one o r two views Dr. Vadim Florence DO Work Phone: Start: 02-19-2025 Urnls dip stick/tabl et rgnt auto w/o microscopy Dasha PriceManjeetAbhishek QUEENNUBIA Work Phone: Start: 01-24-2025 MRI 3D BRAIN QUANT Kael Santiago MD Work Phone: Start: 01-24-2025 Mri brain brain stem w/o contrast material Dillan Santiago MD Work Phone: Start: 01-17-2025 Urnls dip stick/tabl et reagent auto microscopy Dr. Vadim Florence DO Work Phone: Start: 01-17-2025 CT of head without contrast Dr. Vadim Florence DO Work Phone: Start: 01-17-2025 SARS-CoV-2, Influenz a & RSV (PCR) Dr. Vadim Florence DO Work Phone: Start: 01-17-[address] Vadim Florence DO Work Phone: Start: 12-23-2024 Urnls dip stick/tabl et rgnt auto w/o microscopy Tom Baltazar PA-C Work Phone: Plan of Treatment Date Care Activity Detail Author Start: 05-06-2028 Diabetes Screening Diabetes Screenin g [facility] Start: 11-17-2027 Diabetes Screening Diabetes Screenin g [facility] Start: 07-20-2025 Influenza vaccination Influenz a Vaccine (Season Ended) [facility] Start: 07-17-2025 End: 07-17-2025 Patient encounter procedure 07/17/2025 11:20 AM EDT Office Visit [facility] [address] [facility] [place] [address] Dillan Santiago MD [address] [place] [address] 3 Month F/U [facility] Comment on above: 3 Month F/U Start: 06-03-2025 End: 06-03-2025 Patient encounter procedure 06/03/2025 11:00 AM EDT Office Visit Geriatrics [address] [facility] [place] [address] Dillan Santiago MD [address] [facility] [place] [address] 4 wk follow up Geriatrics Comment on above: 4 wk follow up Start: 05-25-2025 End: 05-25-2025 Patient encounter procedure 05/25/2025 8:00 AM EDT Office Visit Cardiology [address] [place] [address] Acute heart failure, unspecified heart failure type (HCC) [I50.9] Cardiology Comment on above: Acute heart failure, unspecified heart failure type (HCC) [I50.9] Start: 05-06-2025 End: 08-05-2025 Comprehensive metabolic 2000 panel - Serum or Plasma [facility] Comment on above: Expected: 05/06/2025 , Expires: 08/05/2025 Start: 05-06-2025 End: 08-05-2025 Hemoglobin A1c in Blood [facility] Comment on above: Expected: 05/06/2025 , Expires: 08/05/2025 Start: 05-06-2025 End: 08-05-2025 Natriuretic peptide.B prohormone N-Terminal [Mass/volume] in Serum or Plasma [facility] Comment on above: Expected: 05/06/2025 , Expires: 08/05/2025 Start: 05-06-2025 End: 05-06-2025 Patient encounter procedure 05/06/2025 11:30 AM EDT Office Visit Geriatrics [address] [facility] [place] [address] Dillan Santiago MD [address] [facility] [place] [address] 3 mo follow up Geriatrics Comment on above: 3 mo follow up Start: 03-19-2025 Removal of urinary catheter [facility] Start: 03-19-2025 Patient discharge [facility] Start: 03-18-2025 Development of care plan [facility] Start: 03-16-[address] [facility] Start: 03-14-[address] [facility] Start: 03-11-[address] [facility] Start: 03-11-2025 Incentive spirometry [facility] Start: 03-10-2025 Recommendation to co ntinue with treatment [facility] Start: 03-06-[address] [facility] Start: 03-05-2025 Speech therapy management [facility] Start: 03-05-2025 Development of care plan [facility] Start: 03-05-2025 Developing a treatme nt plan [facility] Start: 03-05-2025 Speech therapy assessment [facility] Start: 03-04-2025 End: 03-04-2025 Contact precautions [facility] Start: 03-04-2025 Admission procedure [facility] Start: 03-04-2025 Introduction of urin clay catheter [facility] Start: 03-04-2025 Measuring intake and output [facility] Start: 03-04-2025 Patient referral to dietitian [facility] Start: 03-04-2025 Referral to occupati onal therapist [facility] Start: 03-04-2025 Referral to service [facility] Start: 03-04-2025 Verification routine [facility] Start: 03-04-2025 Vital signs measurements [facility] Start: 03-04-2025 End: 03-04-2025 [facility] Start: 03-04-2025 Following clinical p athway protocol [facility] Start: 03-04-2025 Patient discharge [facility] Start: 03-04-2025 Application of device [facility] Start: 03-03-[address] [facility] Start: 03-03-[address] [facility] Start: 03-03-[address] [facility] Start: 03-03-[address] [facility] Start: 03-03-[address] [facility] Start: 03-03-[address] [facility] Start: 03-03-[address] [facility] Start: 03-02-[address] [facility] Start: 03-02-[address] [facility] Start: 03-02-[address] [facility] Start: 03-02-[address] [facility] Start: 03-02-[address] [facility] Start: 03-02-2025 Provision of overbed trapeze [facility] Start: 03-02-2025 Recommendation to co consuelo with treatment [facility] Start: 03-02-2025 End: 03-02-2025 [facility] Start: 03-02-2025 Application of device [facility] Start: 03-02-2025 Assessment of risk o f venous thromboembolism [facility] Start: 03-02-2025 Catheterization of vein [facility] Start: 03-02-[address] [facility] Start: 03-02-2025 Following clinical p athway protocol [facility] Start: 03-02-2025 Introduction of urin clay catheter [facility] Start: 03-02-2025 Measuring intake and output [facility] Start: 03-02-2025 Neurovascular assessment [facility] Start: 03-02-2025 Patient education [facility] Start: 03-02-2025 Procedure discontinued [facility] Start: 03-02-2025 Provision of activit y privileges [facility] Start: 03-02-2025 Referral to occupati onal therapist [facility] Start: 03-02-2025 Referral to service [facility] Start: 03-02-2025 Vital signs measurements [facility] Start: 03-02-[address] [facility] Start: 03-01-2025 Application of ice c ollar, cap or bag [facility] Start: 03-01-2025 Assessment of risk o f venous thromboembolism [facility] Start: 03-01-[address] [facility] Start: 03-01-[address] [facility] Start: 03-01-2025 Assessment of risk o f venous thromboembolism [facility] Start: 03-01-2025 Catheterization of vein [facility] Start: 03-01-[address] [facility] Start: 03-01-2025 Consultation for treatment [facility] Start: 03-01-2025 Following clinical p athway protocol [facility] Start: 03-01-2025 Inhalation therapy procedure [facility] Start: 03-01-2025 Insertion of cathete r into peripheral vein [facility] Start: 03-01-2025 Measuring intake and output [facility] Start: 03-01-2025 Oxygen therapy [facility] Start: 03-01-2025 Providing care accor ding to standard [facility] Start: 03-01-2025 Referral to occupati onal therapist [facility] Start: 03-01-2025 Referral to service [facility] Start: 03-01-[address] [facility] Start: 03-01-2025 Hospital admission, emergency, from emergency room, medical nature [facility] Start: 03-01-2025 Verification routine [facility] Start: 03-01-2025 Admission procedure [facility] Start: 03-01-2025 End: 03-02-2025 [facility] Start: 03-01-[address] [facility] Start: 02-18-2025 End: 02-18-2025 Patient encounter procedure 02/18/2025 10:20 AM EDT Office Visit [facility] [address] [place] [address] Mariposa Salinas APRN.COMMUNITY OUTREACH WORKER [address] [place] [address] ear lavage [facility] Comment on above: ear lavage Start: 02-04-2025 End: 05-06-2025 Thyrotropin [Units/volume] in Serum or Plasma THYROID STIMULATING HORMONE Lab Routine Expected: 02/04/2025, Expires: 05/06/2025 [facility] Work Phone: Comment on above: Expected: 02/04/2025 , Expires: 05/06/2025 Start: 02-04-2025 End: 02-04-2025 Patient encounter procedure 02/04/2025 11:20 AM EDT Office Visit [facility] [place] [address] [place] [address] Mariposa Salinas APRN.COMMUNITY OUTREACH WORKER [address] [place] [address] 3 month follow up [facility] Comment on above: 3 month follow up Start: 01-24-2025 End: 01-24-2025 Patient encounter procedure 01/24/2025 12:30 PM EST Appointment [facility] [address] [place] [address] MRI BRAIN W QUANT WO IVCON, Cognitive impairment, mild, so stated [G31.84], MRI 3D BRAIN QUANT, Cognitive impairment, mild, so stated [G31.84] [facility] Comment on above: MRI BRAIN W QUANT WO IVCON, Cognitive impairment, mild, so stated [G31.84], MRI 3D BRAIN QUANT, Cognitive impairment, mild, so stated [G31.84] Start: 12-30-2024 End: 12-30-2024 Patient encounter procedure 12/30/2024 9:30 AM EST Office Visit Urology [address] [place] [address] Tom Baltazar PA-C [address] [place] [address] 1 YR F/U Urology Comment on above: 1 YR F/U Start: 12-23-2024 End: 12-23-2024 Patient encounter procedure 12/23/2024 10:00 AM EST Office Visit Urology [address] [place] [address] Tom Baltazar PA-C [address] [place] [address] Self-catheterizes urinary bladder [Z78.9] Urology Comment on above: Self-catheterizes ur inary bladder [Z78.9] Start: 12-10-2024 End: 12-10-2024 Patient encounter procedure 12/10/2024 12:30 PM EST Office Visit Geriatrics [address] [place] [address] Dillan Santiago MD [address] [place] [address] Self-catheterizes urinary bladder [Z78.9] Geriatrics Comment on above: Self-catheterizes ur inary bladder [Z78.9] Start: 11-19-2024 Advance Directive Discussion Advance Directive Discussion [facility] Start: 11-19-2024 Medicare Advantage A nnual Wellness Visit Medicare Advantage Annual Wellness Visit [facility] Start: 11-05-2024 End: 02-04-2025 CBC panel - Blood by Automated count COMPLETE BLOOD COUNT Lab Routine Concern about memory Expected: 11/05/2024, Expires: 02/04/2025 [facility] Comment on above: Expected: 11/05/2024 , Expires: 02/04/2025 Start: 11-05-2024 End: 02-04-2025 Cobalamin (Vitamin B12) [Mass/volume] in Serum or Plasma VITAMIN B12 Lab Routine Concern about memory Expected: 11/05/2024, Expires: 02/04/2025 [facility] Comment on above: Expected: 11/05/2024 , Expires: 02/04/2025 Start: 11-05-2024 End: 02-04-2025 Comprehensive metabolic 2000 panel - Serum or Plasma COMPREHENSIVE METABOLIC PANEL Lab Routine Concern about memory Lipid screening Expected: 11/05/2024, Expires: 02/04/2025 [facility] Comment on above: Expected: 11/05/2024 , Expires: 02/04/2025 Start: 11-05-2024 End: 02-04-2025 Lipid 1996 panel - Serum or Plasma LIPID PANEL BASIC Lab Routine Lipid screening Expected: 11/05/2024, Expires: 02/04/2025 [facility] Work Phone: Comment on above: Expected: 11/05/2024 , Expires: 02/04/2025 Start: 11-05-2024 End: 02-04-2025 Thyrotropin [Units/volume] in Serum or Plasma THYROID STIMULATING HORMONE Lab Routine Concern about memory Hypothyroidism, unspecified type Expected: 11/05/2024, Expires: 02/04/2025 [facility] Comment on above: Expected: 11/05/2024 , Expires: 02/04/2025 Start: 11-05-2024 End: 02-04-2025 Thyroxine (T4) free [Mass/volume] in Serum or Plasma T4 FREE/FREE THYROXINE Lab Routine Concern about memory Hypothyroidism, unspecified type Expected: 11/05/2024, Expires: 02/04/2025 [facility] Comment on above: Expected: 11/05/2024 , Expires: 02/04/2025 Start: 11-05-2024 End: 02-04-2025 Triiodothyronine (T3) Free [Mass/volume] in Serum or Plasma T3, FREE Lab Routine Concern about memory Hypothyroidism, unspecified type Expected: 11/05/2024, Expires: 02/04/2025 [facility] Comment on above: Expected: 11/05/2024 , Expires: 02/04/2025 Start: 07-20-2024 Covid-19 Vaccine ( season) Covid-19 Vaccine () [facility] Start: 07-20-2024 Influenza vaccination Influenza Vacc ine (#1) [facility] Start: 02-09-2024 Patient referral [facility] Work Phone: Start: 01-17-2024 Radiologic examinati on of knee XR knee LT 4V [facility] Start: 02-28-2020 Pneumococcal Vaccine : 50+ (2 of 2 - PCV) Pneumococcal Vaccine: 50+ (2 of 2 - PCV) [facility] Start: 2015 RSV Vaccine (1 - 1-d ose 75+ series) RSV Vaccine (1 - 1-dose 75+ series) [facility] Start: 01-14-2009 Shingrix Vaccine (2 of 3) Bran grix Vaccine (2 of 3) [facility] Start: 2005 Screening for osteoporosis Bone Dens ity Screening [facility] Start: 1985 Diabetes Screening Diabetes Screenin g [facility] Start: 1959 Urine microalbumin profile DTa P,Tdap,Td Vaccine (1 - Tdap) [facility] Start: 1958 Anxiety Screening Anxiety Screening [facility] Start: 1958 Depression Screening Depression Scre ening [facility] Anion gap in Serum o r Plasma [facility] Anion gap in Serum o r Plasma [facility] Anion gap in Serum o r Plasma [facility] Anion gap in Serum o r Plasma [facility] Anion gap in Serum o r Plasma [facility] Bacteria identified in Urine by Culture BACTERIAL CULTURE, URINE Microbiology Routine Urinary frequency Ordered: 02/19/2025 [facility] Work Phone: Comment on above: Ordered: 02/19/2025 BUN/Creatinine ratio [facility] BUN/Creatinine ratio [facility] BUN/Creatinine ratio [facility] BUN/Creatinine ratio [facility] BUN/Creatinine ratio [facility] Calcium [Mass/volume ] in Serum or Plasma [facility] Calcium [Mass/volume ] in Serum or Plasma [facility] Calcium [Mass/volume ] in Serum or Plasma [facility] Calcium [Mass/volume ] in Serum or Plasma [facility] Calcium [Mass/volume ] in Serum or Plasma [facility] Carbon dioxide, tota l [Moles/volume] in Central venous blood [facility] Carbon dioxide, tota l [Moles/volume] in Central venous blood [facility] Carbon dioxide, tota l [Moles/volume] in Central venous blood [facility] Carbon dioxide, tota l [Moles/volume] in Central venous blood [facility] Carbon dioxide, tota l [Moles/volume] in Central venous blood [facility] Creatinine [Mass/vol ume] in Serum or Plasma [facility] Creatinine [Mass/vol ume] in Serum or Plasma [facility] Creatinine [Mass/vol ume] in Serum or Plasma [facility] Creatinine [Mass/vol ume] in Serum or Plasma [facility] Creatinine [Mass/vol ume] in Serum or Plasma [facility] End: 05-06-2026 Echocardiography ECHO Cardiology MATIE Acute heart failure, unspecified heart failure type (HCC) 1 Occurrences starting 05/06/2025 until 05/06/2026 [facility] Work Phone: Comment on above: 1 Occurrences starti ng 05/06/2025 until 05/06/2026 Erythrocyte mean corpuscular volume determination [facility] Erythrocyte mean corpuscular volume determination [facility] Erythrocyte mean corpuscular volume determination [facility] Erythrocyte mean corpuscular volume determination [facility] Erythrocyte mean corpuscular volume determination [facility] Glucose [Mass/volume ] in Serum or Plasma [facility] Glucose [Mass/volume ] in Serum or Plasma [facility] Glucose [Mass/volume ] in Serum or Plasma [facility] Glucose [Mass/volume ] in Serum or Plasma [facility] Glucose [Mass/volume ] in Serum or Plasma [facility] Hematocrit [Volume Fraction] of Blood [facility] Hematocrit [Volume Fraction] of Blood [facility] Hematocrit [Volume Fraction] of Blood [facility] Hematocrit [Volume Fraction] of Blood [facility] Hematocrit [Volume Fraction] of Blood [facility] Hemoglobin [Mass/vol ume] in Blood [facility] Hemoglobin [Mass/vol ume] in Blood [facility] Hemoglobin [Mass/vol ume] in Blood [facility] Hemoglobin [Mass/vol ume] in Blood [facility] Hemoglobin [Mass/vol ume] in Blood [facility] Leukocytes [#/volume ] in Blood [facility] Leukocytes [#/volume ] in Blood [facility] Leukocytes [#/volume ] in Blood [facility] Leukocytes [#/volume ] in Blood [facility] Leukocytes [#/volume ] in Blood [facility] Mean corpuscular hemoglobin concentration determination [facility] Mean corpuscular hemoglobin concentration determination [facility] Mean corpuscular hemoglobin concentration determination [facility] Mean corpuscular hemoglobin concentration determination [facility] Mean corpuscular hemoglobin concentration determination [facility] Mean corpuscular hemoglobin determination [facility] Mean corpuscular hemoglobin determination [facility] Mean corpuscular hemoglobin determination [facility] Mean corpuscular hemoglobin determination [facility] Mean corpuscular hemoglobin determination [facility] Measurement of renal function [facility] Measurement of renal function [facility] Measurement of renal function [facility] Measurement of renal function [facility] Measurement of renal function [facility] End: 01-09-2026 MR Brain WO contrast MRI BRAIN W QUANT WO IVCON Radiology Routine Cognitive impairment, mild, so stated 1 Occurrences starting 12/10/2024 until 01/09/2026 [facility] Work Phone: Comment on above: 1 Occurrences starti ng 12/10/2024 until 01/09/2026 End: 01-09-2026 MR Unspecified body region 3D post processing MRI 3D BRAIN QUANT Radiology Routine Cognitive impairment, mild, so stated 1 Occurrences starting 12/10/2024 until 01/09/2026 [facility] Comment on above: 1 Occurrences starti ng 12/10/2024 until 01/09/2026 Neutrophil count [facility] Neutrophil count [facility] Neutrophil count [facility] Neutrophil count [facility] Neutrophil count [facility] Neutrophil percent differential count [facility] Neutrophil percent differential count [facility] Neutrophil percent differential count [facility] Neutrophil percent differential count [facility] Neutrophil percent differential count [facility] Patient Education [facility] Work Phone: Patient referral [facility] Work Phone: Platelets [#/volume] in Blood [facility] Platelets [#/volume] in Blood [facility] Platelets [#/volume] in Blood [facility] Platelets [#/volume] in Blood [facility] Platelets [#/volume] in Blood [facility] Potassium measurement [facility] Potassium measurement [facility] Potassium measurement [facility] Potassium measurement [facility] Potassium measurement [facility] Red blood cell count [facility] Red blood cell count [facility] Red blood cell count [facility] Red blood cell count [facility] Red blood cell count [facility] Red cell distributio n width determination [facility] Red cell distributio n width determination [facility] Red cell distributio n width determination [facility] Red cell distributio n width determination [facility] Red cell distributio n width determination [facility] Removal impacted cer umen irrigation/lvg unilat AMBULATORY EAR LAVAGE/IRRIGATION Procedures Routine Impacted cerumen of right ear Ordered: 02/18/2025 [facility] Work Phone: Comment on above: Ordered: 02/18/2025 Serum chloride measurement [facility] Serum chloride measurement [facility] Serum chloride measurement [facility] Serum chloride measurement [facility] Serum chloride measurement [facility] Sodium measurement [facility] Sodium measurement [facility] Sodium measurement [facility] Sodium measurement [facility] Sodium measurement [facility] Urea nitrogen [Mass/volume] in Serum or Plasma [facility] Urea nitrogen [Mass/volume] in Serum or Plasma [facility] Urea nitrogen [Mass/volume] in Serum or Plasma [facility] Urea nitrogen [Mass/volume] in Serum or Plasma [facility] Urea nitrogen [Mass/volume] in Serum or Plasma [facility] Immunizations Immunization Date Immunization Notes Care Provider [facility] 10-31-2022 influenza virus vacc ine, unspecified formulation Mariposa Salinas APRN.[employer] WORK[employer] Work Phone: [facility] 02-27-2019 pneumococcal polysaccharide vaccine, [address] Vadim Florence DO Work Phone: [facility] 08-19-2009 pneumococcal conjuga te vaccine, [address] Vadim Florence DO Work Phone: [facility] Payers Date Payer Category Payer Self-pay [id number] 2023 Medicare UHC MEDICARE UHC MEDICARE ADVANTAGE PPO [id number] 2023-Present [phone] [address] [address] [place] [address] PPO [id number] 2023 Medicare (Managed Care) [facility] MED[facility] CARE ADVANTAGE PPO [id number] 2023 Medicare [id number] Medicare [id number] Medicare Medicare Part A & B [id number] Unknown [place] [employer] [id number] Unknown [id number] Unknown [id number] Unknown [id number] Unknown [id number] Unknown [id number] Unknown [id number] Unknown [id number] Unknown [id number] Unknown [id number] Unknown [id number] Unknown [id number] Unknown [id number] Social History Date Type Detail Facility Tobacco smoking status ARIS Unknown if ever smoked [facility] Work Phone: Start: 11-04-2019 Never Smoker [facility] Start: 10-29-2019 No History [facility] Start: 10-29-2019 up to date / s hingle up to date [facility] Start: 1940 Sex Assigned At Female T he [facility] Start: 11-05-2024 End: 03-04-2025 Tobacco smoking status NHIS Never smoked tobacco [facility] Start: 11-05-2024 Tobacco use and exposure Smokeless tobacco non-user [facility] Start: 11-05-2024 End: 05-06-2025 Alcoholic beverage intake Lifetime non-drinker (finding) [facility] Start: 11-05-2024 End: 04-17-2025 History of Social function [facility] Start: 11-05-2024 End: 04-17-2025 Tobacco use panel [facility] National Score (1-100), lower number is lower risk 72 [facility] Start: 1940 Sex assigned at Not on file [facility] Start: 12-10-2024 Education 15 [facility] Start: 03-01-2025 Tobacco smoking status NHIS Tobacco smoking consumption unknown (finding) [facility] Start: 03-01-2025 End: 03-12-2025 Sex Female (finding) [facility] Has the electric, gas, oil, or water company threatened to shut off services in your home in past 12Mo No [facility] Are you now , , , , never or living with a partner? [facility] How often to you hav e a drink containing alcohol? Never [facility] How hard is it for you to pay for the very basics like food, housing, medical care, and heating Not very hard [facility] Do you feel stress - tense, restless, nervous, or anxious, or unable to sleep at night because your mind is troubled all the time - these days [OSQ] Very much [facility] (I/We) worried whether (my/our) food would run out before (I/we) got money to buy more. Never true [facility] NEGATED: Highlighted row Not [facility] Medical Equipment Procedure Code Equipment Code Equipment Origin al Text Equipment Identifier Dates ORIF, hip, using Gamma nail ([id number]) Orthopaedic bone screw, non-bioabsorbable, sterile [id number] FDA Start: 03-02-2025 ORIF, hip, using Gamma nail ([id number]) Femur nail, sterile [id number] FDA Start: 03-02-2025 Goals Date Patient Goal Desired Activity /State Functional Status Date Assessment Result Facility 04-17-2025 Total score [AUDIT-C] 0 04/17/20 9:21 AM EDT User, Joserhonat [facility] 04-17-2025 How often to you hav e a drink containing alcohol? Never 04/17/2025 9:21 AM EDT [facility] 04-17-2025 Functional status Patient does n ot drink 04/17/2025 9:21 AM EDT User, Umbelhart Patient does not drink [facility] 04-17-2025 How often do you hav e 6 or more drinks on 1 occasion? Never 04/17/2025 9:21 AM EDT User, Josehart Never [facility] 03-19-2025 Functional status Chair [facility] Work Phone: 03-18-2025 Functional status Tolerates Activity Well [facility] Work Phone: 03-12-2025 Functional status Ambulates [facility] Work Phone: 03-11-2025 Functional status Tolerates Activity Fair [facility] Work Phone: 03-04-2025 Functional status Back to bed [facility] Work Phone: Mental Status Date Assessment Result Facility 03-19-2025 Cognitive function Voice/Name [facility] Work Phone: 03-12-2025 Cognitive function Cooperative [facility] Work Phone: 03-11-2025 Cognitive function Voice/Name [facility] Work Phone: 03-04-2025 Cognitive function Voice/Name [facility] Work Phone: 01-17-2025 Cognitive function Voice/Name [facility] Work Phone: Clinical Notes 11-05-2024 to 05-12-2025 Telephone Encounter - Michaelle Tai RN - 05/12/2025 1:23 PM EDTTelephone Encounter - Michaelle Tai RN - 05/12/2025 1:23 PM EDTTelephone Encounter - Dillan Santiago MD - 05/11/2025 5:08 PM EDT Note Date & Type Note Facility 05-12-2025 Telephone encounter Note Phoned Ivis and given provider's message below. Ivis states she believes pt is taking the lasix as ordered 2 x's a week. Ivis is not at work today but will double check when she goes back and call back if there has been a change in how pt is taking the lasix. [facility] 05-12-2025 Miscellaneous Notes Phoned I[facility] and given provider's message below. Ivis states she believes pt is taking the lasix as ordered 2 x's a week. Ivis is not at work today but will double check when she goes back and call back if there has been a change in how pt is taking the lasix. Do not want chest xr just yet Is she taking her lasix as ordered, 2 times a week? Regards, Dillan Santiago MD [facility]- [facility] reports pt has fine crackles in the bases of her lungs again. Reports patient denies Shortness of Breath, and the swelling has decreased. No fever. Otherwise, besides pt's anxiety she feels great. Asking if pcp wants to order a CXR? If pcp wants to order a CXR please fax order to Jose M Zheng at fax # [phone] Please advise and phone Ivis with reply: [phone] documented in this encounter [facility] 05-11-2025 Telephone encounter Note Do not want chest xr just yet Is she taking her lasix as ordered, 2 times a week? Regards, Dillan Santiago MD [facility] 05-08-2025 Telephone encounter Note Daughter Maribeth notified. [facility] 05-08-2025 Miscellaneous Notes Daughter Maribeth notified. ----- Message from Dillan Santiago MD sent at 05/07/2025 4:44 PM EDT ----- Please let patient know, She does not seem to be in a cardiac failure, her swelling of the legs is likely dependent edema. I would encourage her to use compression stockings and to elevate her legs. It would benefit if she takes Lasix once in 3 days for the next couple months. Regards, Dillan Santiago MD documented in this encounter [facility] 05-08-2025 Telephone encounter Note ----- Message from Dillan Santiago MD sent at 05/07/2025 4:44 PM EDT ----- Please let patient know, She does not seem to be in a cardiac failure, her swelling of the legs is likely dependent edema. I would encourage her to use compression stockings and to elevate her legs. It would benefit if she takes Lasix once in 3 days for the next couple months. Dillan Patel MD [facility] 05-07-2025 Telephone encounter Note The following approved medication requests have been transmitted electronically. Requested Prescriptions Signed Prescriptions Disp Refills busPIRone (BUSPAR) 5 mg tablet 60 tablet 3 Sig: Take 1 tablet by mouth two times a day. Authorizing Provider: DILLAN SANTIAGO MA [facility] 05-07-2025 Miscellaneous Notes The following approved medication requests have been transmitted electronically. Requested Prescriptions Signed Prescriptions Disp Refills busPIRone (BUSPAR) 5 mg tablet 60 tablet 3 Sig: Take 1 tablet by mouth two times a day. Authorizing Provider: DILLAN SANTIAGO MA I started her on buspar. Dillan Patel MD Gabi [facility] with [employer] calls to let provider know that patient is reporting increased anxiety and depression and forgot to mention it at her appointment today. Call placed to patient to gather further information. Spoke to daughter. Daughter reports that patient definitely has a lot going on in the sense of becoming overwhelmed and having anxiety and depression. She reports that she didn't say anything at the OV as she tries to let patient guide the visit but she would be on board with additional help for anxiety/depression. Daughter also reports that she currently has caregivers in the home but that is not going to last long d/t the cost so she has started to look at Assisted Living options which will further affect patient and her anxiety/depression. Currently ordered Celexa 20 mg but just started on 04/20/2025. Please review and advise. Kecia Red RN documented in this encounter [facility] 05-07-2025 Telephone encounter Note [facility] reports pt has fine crackles in the bases of her lungs again. Reports patient denies Shortness of Breath, and the swelling has decreased. No fever. Otherwise, besides pt's anxiety she feels great. Asking if pcp wants to order a CXR? If pcp wants to order a CXR please fax order to Jose M Zheng at fax # [phone] Please advise and phone Ivis with reply: [phone] [facility] 05-06-2025 Telephone encounter Note I started her on buspar. Regards, Dillan Santiago MD [facility] 05-06-2025 Telephone encounter Note Gabi PT with [facility] calls to let provider know that patient is reporting increased anxiety and depression and forgot to mention it at her appointment today. Call placed to patient to gather further information. Spoke to daughter. Daughter reports that patient definitely has a lot going on in the sense of becoming overwhelmed and having anxiety and depression. She reports that she didn't say anything at the OV as she tries to let patient guide the visit but she would be on board with additional help for anxiety/depression. Daughter also reports that she currently has caregivers in the home but that is not going to last long d/t the cost so she has started to look at Assisted Living options which will further affect patient and her anxiety/depression. Currently ordered Celexa 20 mg but just started on 04/20/2025. Please review and advise. Kecia Red RN [facility] 05-06-2025 Note HNO ID: [id number] Author: DILLAN SANTIAGO MD Service: ? Author Type: Physician Type: Progress Notes Filed: 05/06/2025 12:49 Note Text: Reason for Visit Follow up HPI Michaela Brandt is a 84-year-old female, with a history of urinary retention requiring self-catheterization, presenting for follow-up on lower extremity edema and urinary catheter management. She is accompanied by her daughter, who is providing additional history. Michaela is currently receiving home care services, including retirement, physical therapy, and occupational therapy. She has aides assisting her from [phone] and [phone] daily. Due to financial constraints, the family is considering reducing the hours of aide services. Michaela has been experiencing lower extremity edema, which her daughter reports is managed by elevating her feet. She is currently on Eliquis 5 mg BID, initiated for a lower extremity blood clot post-hip surgery. She denies dyspnea. Michaela has a history of urinary retention and has been self-catheterizing for an extended period. Recently, she had a urinary catheter placed, which repeatedly dislodged. A skilled nurse suggested that the catheter may be dislodging due to Michaela's long history of self-catheterization, leading to increased urethral elasticity. Michaela expresses a strong preference for continuing self-catheterization and is opposed to having a permanent catheter. She denies hematuria and reports no current symptoms of a UTI, such as dysuria. She typically self-catheterizes four times a day but occasionally does so at night. Michaela has also been experiencing weight loss, with a decrease from 134 lbs to 123 lbs over the past two months. She reports that her weight has stabilized. She was started on Aricept 3 months ago for memory issues and reports no significant side effects. She is able to ambulate to the bathroom using a walker and is not using a wheelchair. She also mentions having a gentleman friend who visits twice a week. Social History Tobacco Use Smoking status: Never Smokeless tobacco: Never Vaping Use Vaping status: Never Used Substance Use Topics Alcohol use: Never Drug use: Never Past medical history, appointments, medications, allergies reviewed. Pertinent Lab/Diagnostic Studies are reviewed and discussed today Current Outpatient Medications: clonazePAM (KLONOPIN) 0.5 mg tablet citalopram (CELEXA) 20 mg tablet ascorbic acid (VITAMIN C ORAL) donepezil (ARICEPT) 10 mg tablet levothyroxine (EUTHYROX) 50 mcg tablet sodium chloride 0.9 % IRRIGATION furosemide (LASIX) 20 mg tablet apixaban (ELIQUIS) 5 mg tab(s) clonazePAM (KLONOPIN) 0.5 mg tablet Catheter (SELF-CATHETER, FEMALE) 14 [place] [facility] [place] DTaP,Tdap,Td Vaccine(1 - Tdap) Bone Density Screening Shingrix Vaccine(2 of 3) RSV Vaccine(1 - 1-dose 75+ series) Pneumococcal Vaccine: 50+(2 of 2 - PCV) Covid-19 Vaccine( season) Advance Directive Discussion Medicare Advantage Annual Wellness Visit@ Review Of Systems Constitutional: (+) unintentional weight loss Cardiovascular: (+) bilateral lower extremity edema Respiratory: (-) shortness of breath Genitourinary: (-) dysuria, (-) hematuria Musculoskeletal: (-) hip pain Psychiatric: (+) tearfulness Physical Exam BP 144/64 Pulse 62 Resp 12 Wt 55.8 kg (123 lb) LMP (LMP Unknown) SpO2 98% GENERAL: NAD, alert and oriented in te wheel chair SKIN: Unremarkable, no rash or skin lesions. HEAD: Normocephalic. EYES: PERRLA, EOMI, conjunctiva clear. EARS: External ears normal, canals clear, TM's normal. LUNGS: Bilateral crackles noted at the bases, decreased with deep breaths. No wheezes/rhonchi. HEART: Regular rate and rhythm, no murmurs. No ectopy. EXTREMITIES: Pitting edema noted from feet to thighs. NEURO: Awake, alert and oriented x3, cranial nerves II-XII grossly intact, normal gait, no involuntary motions. Labs Imaging - Foot X-ray: No fracture identified Assessment and Plan 1. Acute heart failure, unspecified heart failure type (HCC) (I50.9) Patient exhibits bilateral crackles at the lung bases and peripheral edema, indicating potential fluid overload. Oxygen saturation remains stable. Recent weight loss noted, but fluid retention is evident. - Ordered 2D echocardiogram to assess cardiac function. - Initiated Lasix twice weekly (Sunday and ) with additional dose if weight increases by 3 lbs on any given day. - Encouraged deep breathing exercises to aid in pulmonary clearance. - Follow-up on echocardiogram results to determine further management. 2. Prediabetes (R73.03) 3. Urinary retention (R33.9) Self-catheterizes urinary bladder (Z78.9) Patient has a history of urinary retention and has been self-catheterizing for an extended period. Recent issues with indwelling catheter displacement, likely due to urethral dilation from prolonged self-catheterization. Patient expresses (more content not included)... [facility] 05-06-2025 History of Presen t illness Narrative Reason for Visit Follow up HPI Michaela Brandt is a 84-year-old female, with a history of urinary retention requiring self-catheterization, presenting for follow-up on lower extremity edema and urinary catheter management. She is accompanied by her daughter, who is providing additional history. Michaela is currently receiving home care services, including retirement, physical therapy, and occupational therapy. She has aides assisting her from [phone] and [phone] daily. Due to financial constraints, the family is considering reducing the hours of aide services. Michaela has been experiencing lower extremity edema, which her daughter reports is managed by elevating her feet. She is currently on Eliquis 5 mg BID, initiated for a lower extremity blood clot post-hip surgery. She denies dyspnea. Michaela has a history of urinary retention and has been self-catheterizing for an extended period. Recently, she had a urinary catheter placed, which repeatedly dislodged. A skilled nurse suggested that the catheter may be dislodging due to Michaela's long history of self-catheterization, leading to increased urethral elasticity. Michaela expresses a strong preference for continuing self-catheterization and is opposed to having a permanent catheter. She denies hematuria and reports no current symptoms of a UTI, such as dysuria. She typically self-catheterizes four times a day but occasionally does so at night. Michaela has also been experiencing weight loss, with a decrease from 134 lbs to 123 lbs over the past two months. She reports that her weight has stabilized. She was started on Aricept 3 months ago for memory issues and reports no significant side effects. She is able to ambulate to the bathroom using a walker and is not using a wheelchair. She also mentions having a gentleman friend who visits twice a week. Social History Tobacco Use Smoking status: Never Smokeless tobacco: Never Vaping Use Vaping status: Never Used Substance Use Topics Alcohol use: Never Drug use: Never Past medical history, appointments, medications, allergies reviewed. Pertinent Lab/Diagnostic Studies are reviewed and discussed today Current Outpatient Medications: clonazePAM (KLONOPIN) 0.5 mg tablet citalopram (CELEXA) 20 mg tablet ascorbic acid (VITAMIN C ORAL) donepezil (ARICEPT) 10 mg tablet levothyroxine (EUTHYROX) 50 mcg tablet sodium chloride 0.9 % IRRIGATION furosemide (LASIX) 20 mg tablet apixaban (ELIQUIS) 5 mg tab(s) clonazePAM (KLONOPIN) 0.5 mg tablet Catheter (SELF-CATHETER, FEMALE) 14 [place] [facility] [place] Maintenance DTaP,Tdap,Td Vaccine(1 - Tdap) Bone Density Screening Shingrix Vaccine(2 of 3) RSV Vaccine(1 - 1-dose 75+ series) Pneumococcal Vaccine: 50+(2 of 2 - PCV) Covid-19 Vaccine( season) Advance Directive Discussion Medicare Advantage Annual Wellness Visit@ Review Of Systems Constitutional: (+) unintentional weight loss Cardiovascular: (+) bilateral lower extremity edema Respiratory: (-) shortness of breath Genitourinary: (-) dysuria, (-) hematuria Musculoskeletal: (-) hip pain Psychiatric: (+) tearfulness Physical Exam BP 144/64 Pulse 62 Resp 12 Wt 55.8 kg (123 lb) LMP (LMP Unknown) SpO2 98% GENERAL: NAD, alert and oriented in te wheel chair SKIN: Unremarkable, no rash or skin lesions. HEAD: Normocephalic. EYES: PERRLA, EOMI, conjunctiva clear. EARS: External ears normal, canals clear, TM's normal. LUNGS: Bilateral crackles noted at the bases, decreased with deep breaths. No wheezes/rhonchi. HEART: Regular rate and rhythm, no murmurs. No ectopy. EXTREMITIES: Pitting edema noted from feet to thighs. NEURO: Awake, alert and oriented x3, cranial nerves II-XII grossly intact, normal gait, no involuntary motions. Labs Imaging - Foot X-ray: No fracture identified Assessment and Plan 1. Acute heart failure, unspecified heart failure type (HCC) (I50.9) Patient exhibits bilateral crackles at the lung bases and peripheral edema, indicating potential fluid overload. Oxygen saturation remains stable. Recent weight loss noted, but fluid retention is evident. - Ordered 2D echocardiogram to assess cardiac function. - Initiated Lasix twice weekly (Sunday and ) with additional dose if weight increases by 3 lbs on any given day. - Encouraged deep breathing exercises to aid in pulmonary clearance. - Follow-up on echocardiogram results to determine further management. 2. Prediabetes (R73.03) 3. Urinary retention (R33.9) Self-catheterizes urinary bladder (Z78.9) Patient has a history of urinary retention and has been self-catheterizing for an extended period. Recent issues with indwelling catheter displacement, likely due to urethral dilation from prolonged self-catheterization. Patient expresses strong preference for self-catheterization over indwelling catheter use. - Continue self-catheterization with assistance from aides to ensure proper hygiene. - Discussed potential future consideration of a suprapubic catheter if recurrent infections occur. - Monitor for signs of urinary tract infections. 4. Acute deep vein thrombosis (DVT) of calf muscle vein of left lower extremity (HCC) (I82.462) Patient is currently on Eliquis 5 mg BID, initiated post-hip surgery for DVT prophylaxis. - Continue Eliquis 5 mg BID for a total duration of 6 months. - Prescription sent to [facility] pharmacy for 3 months supply. 5. Edema, unspecified type (R60.9) Peripheral edema noted from feet to thighs. Patient is not currently using compression stockings. - Initiated Lasix as per heart failure management. - Advised use of compression stockings to reduce edema. 6. Weakness of both lower extremities (R29.898) 7. 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 Patient is ambulatory with a walker and not using a wheelchair. - Continue physical therapy to strengthen lower extremities. - Follow-up with orthopedic surgeon as scheduled. Voice recognition software was used to compose this office note. Please excuse any unintended typographical errors. Recording using ambient SERPs software for draft documentation of the visit was discussed with the patient/authorized signs and displays sales representative; all questions welcomed and answered. Patient/authorized signs and displays sales representative agreed to proceed Dillan Santiago MD documented in this encounter [facility] 05-04-2025 Telephone encounter Note Detailed message on secure voicemail. Pamela Power MA May 04, 2025 4:11 PM [facility] 05-04-2025 Miscellaneous Notes Detailed message on secure voicemail. Pamela Power MA May 04, 2025 4:11 PM Verbal ok to order all these labs chest x-ray, BNP, CMP, and A1C for patient? Regards, Dillan Santiago MD Brittni with [facility] calls in regards to TE from 04/24: Solange Craig RN MG 04/24/25 11:13 AM Note Brissa from [facility] is calling due to she saw patient today and states that patient has bilat lung crackles in bases of lungs, no cough or SOB, O2 on room air was 99%, patient has developed 2+ bilateral lower leg swelling and tingling in left fingers. Nurse is wanting to know if you would like to order a chest x-ray, BNP, CMP, and A1C for patient? Please review and advise, nurse needs called back with information. Pt's daughter also called in that day and it was recommended by RN to take pt to ER. Brittni reports as far as she knows pt did not go to ER. Brittni reports nurse saw pt on Tuesday 04/24. Brittni is still requesting VO for the above labs and CXR. Nisha Clayton LPN documented in this encounter [facility] 05-04-2025 Telephone encounter Note I dont usually do the catheters and have not done for her. I would like Urology to take care of this Regards, Dillan Santiago MD [facility] 05-04-2025 Miscellaneous Notes I dont usually do the catheters and have not done for her. I would like Urology to take care of this Regards, Dillan Santiago MD Images from the original note were not included. Tom Baltazar PA-C You3 days ago Yejitendra I though Silas was doing this VADIM [place], [place], Tom Craig PA-C5 days ago KURTIS Hayes, do you want this sent to PCP to address? Patient was seen previously by you graciela once and was to [facility]. Nusrat Crespo LPN JAIRON 12/23/24 Home health care requesting orders for catheter. Patient was sent home from ortho rehab with a catheter but has pulled it out. Patient is fighting placed catheter but home health reports cognitive issues and doubts her ability to straight cath. Home health requesting catheter size and placement of orders. Please fax to Savanah at [facility] [phone]. JAIRON notes faxed through [employer]. Ophelia Ansari MA documented in this encounter [facility] 05-04-2025 Telephone encounter Note Verbal ok to order all these labs chest x-ray, BNP, CMP, and A1C for patient? Regards, Dillan Torresta MD [facility] 05-04-2025 Telephone encounter Note Images from the original note were not included. Tom Baltazar PA-C You3 days ago Yejitendra I though Silas was doing this VAIDM [place], [place], NASIR You Tom Baltazar PA-C5 days ago KURTIS Hayes, do you want this sent to PCP to address? Patient was seen previously by you you once and was to [facility]. Nusrat Crespo LPN [facility] 05-04-2025 Telephone encounter Note Brittni with [facility] calls in regards to TE from 04/24: Solange Craig RN MG 04/24/25 11:13 AM Note Brissa from [facility] is calling due to she saw patient today and states that patient has bilat lung crackles in bases of lungs, no cough or SOB, O2 on room air was 99%, patient has developed 2+ bilateral lower leg swelling and tingling in left fingers. Nurse is wanting to know if you would like to order a chest x-ray, BNP, CMP, and A1C for patient? Please review and advise, nurse needs called back with information. Pt's daughter also called in that day and it was recommended by RN to take pt to ER. Brittni reports as far as she knows pt did not go to ER. Brittni reports nurse saw pt on Tuesday 04/24. Brittni is still requesting VO for the above labs and CXR. Nisha Clayton LPN [facility] 05-02-2025 Telephone encounter Note Spoke to [facility], Patient just picked up Celexa 20mg RX yesterday, 05/01/2025, she has refills remaining. Radha Haro LPN [facility] 05-02-2025 Miscellaneous Notes Spoke to [facility], Patient just picked up Celexa 20mg RX yesterday, 05/01/2025, she has refills remaining. Radha Haro LPN documented in this encounter [facility] 05-01-2025 Telephone encounter Note PDMP website checked and validated. All prescriptions have been APPROPRIATELY filled. No suspicious activity was identified. 05/01/2025 by Mariposa Salinas APRN.ARIEL [facility] 05-01-2025 Miscellaneous Notes PDMP website checked and validated. All prescriptions have been APPROPRIATELY filled. No suspicious activity was identified. 05/01/2025 by Mariposa Salinas APRN.ARIEL Patient has been identified by name and date of : yes Patient phones for refill(s): Requested Prescriptions Pending Prescriptions Disp Refills clonazePAM (KLONOPIN) 0.5 mg tablet 45 tablet 0 Sig: Take 1 tablet by mouth three times a day as needed for anxiety for up to 30 days. Date of last office visit in primary care: 04/17/2025 Date of next office visit in primary care: 05/01/2025 Please advise. Thank you. Marisol Tomlinson MA. documented in this encounter [facility] 05-01-2025 Telephone encounter Note Patient has been identified by name and date of : yes Patient phones for refill(s): Requested Prescriptions Pending Prescriptions Disp Refills clonazePAM (KLONOPIN) 0.5 mg tablet 45 tablet 0 Sig: Take 1 tablet by mouth three times a day as needed for anxiety for up to 30 days. Date of last office visit in primary care: 04/17/2025 Date of next office visit in primary care: 05/01/2025 Please advise. Thank you. Marisol Tomlinson MA. [facility] 04-27-2025 Telephone encounter Note JAIRON 12/23/24 [facility] 04-27-2025 Telephone encounter Note Home health care requesting orders for catheter. Patient was sent home from ortho rehab with a catheter but has pulled it out. Patient is fighting placed catheter but home health reports cognitive issues and doubts her ability to straight cath. Home health requesting catheter size and placement of orders. Please fax to Savanah at [facility] [phone]. JAIRON notes faxed through [employer]. Ophelia Ansari MA [facility] 04-24-2025 Telephone encounter Note Pts daughter called in and was asking about if she should take her mother to [facility] ER or a [facility] ER. She states since she is affiliated with [facility] would it be in her best interest to just go to the [facility]. I told her that is up to her, but the closest one would be [place] [facility], [facility], or [facility]. She said if they went to [facility] they could always get her transfer to a [facility] facility. I told her it really depends on what they find when they do blood work when she get there. She said she would talk it over with her . Gabi Mcelroy RN T [facility] 04-24-2025 Miscellaneous Notes Pts daughter called in and was asking about if she should take her mother to [facility] ER or a [facility] ER. She states since she is affiliated with [facility] would it be in her best interest to just go to the [facility]. I told her that is up to her, but the closest one would be [facility], [facility], or [facility]. She said if they went to [facility] they could always get her transfer to a [facility] facility. I told her it really depends on what they find when they do blood work when she get there. She said she would talk it over with her . Gabi Mcelroy RN Patient's daughter Maribeth Shin calling regarding patient. Expresses concern that patient is declining. Reports patient's current weight is 106.6 lbs. Per record pt was approx 127 lbs on 04/17/25. Reports lower extremity edema, abnormal lung sounds, decreased appetite, decreased mental state and 2-5 episodes of diarrhea per day. Urinary catheter was noted to be out, was replaced today. Daughter reports HH staff heard fluid in pt's lungs. With this call, along with previous note requesting imaging and blood work, and pt's Full Code status, this nurse advised ER based on all sx's. Daughter agreeable. Porsha Vasquez RN Brissa from [facility] is calling due to she saw patient today and states that patient has bilat lung crackles in bases of lungs, no cough or SOB, O2 on room air was 99%, patient has developed 2+ bilateral lower leg swelling and tingling in left fingers. Nurse is wanting to know if you would like to order a chest x-ray, BNP, CMP, and A1C for patient? Please review and advise, nurse needs called back with information. documented in this encounter [facility] 04-24-2025 Telephone encounter Note Patient's daughter Maribeth Shin calling regarding patient. Expresses concern that patient is declining. Reports patient's current weight is 106.6 lbs. Per record pt was approx 127 lbs on 04/17/25. Reports lower extremity edema, abnormal lung sounds, decreased appetite, decreased mental state and 2-5 episodes of diarrhea per day. Urinary catheter was noted to be out, was replaced today. Daughter reports HH staff heard fluid in pt's lungs. With this call, along with previous note requesting imaging and blood work, and pt's Full Code status, this nurse advised ER based on all sx's. Daughter agreeable. Porsha Vasquez RN [facility] 04-24-2025 Telephone encounter Note Patient active MyChart. Patient notified via [employer] message. Mike Guo MA [facility] 04-24-2025 Miscellaneous Notes Patient active MyChart. Patient notified via [employer] message. Mike Guo MA Ordered as requested Regards, Dillan Santiago MD documented in this encounter [facility] 04-24-2025 Telephone encounter Note Ordered as requested Regards, Dillan Santiago MD [facility] 04-24-2025 Telephone encounter Note Brissa from [facility] is calling due to she saw patient today and states that patient has bilat lung crackles in bases of lungs, no cough or SOB, O2 on room air was 99%, patient has developed 2+ bilateral lower leg swelling and tingling in left fingers. Nurse is wanting to know if you would like to order a chest x-ray, BNP, CMP, and A1C for patient? Please review and advise, nurse needs called back with information. [facility] 04-22-2025 Telephone encounter Note Called and spoke to patients jossie Stahl, will forward message to Home health Mckenzie Lombardo LPN April 22, 2025 9:42 AM [facility] 04-22-2025 Miscellaneous Notes Called and spoke to patients jossie Stahl, will forward message to [facility] Mckenzie Lombardo LPN April 22, 2025 9:42 AM Would consider Compression stockings to be put on her and lifting her legs If that does not work we can give her a little lasix. Regards, Dillan Santiago MD Larisa with [facility] calls to report she saw pt today for evaluation. Larisa reports OT will see pt once x 1 week, twice x 2 weeks, then once x 6 weeks. Larisa also reports that pt has 2+ pitting edema in left foot. Larisa was advised that foot has had swelling since pt's fall. Larisa report there is no redness or pain. Pt does say there is some discomfort at times but foot is not painful. Nisha Clayton LPN documented in this encounter [facility] 04-21-2025 Telephone encounter Note Would consider Compression stockings to be put on her and lifting her legs If that does not work we can give her a little lasix. Regards, Dillan Santiago MD [facility] 04-21-2025 Telephone encounter Note Larisa with [facility] calls to report she saw pt today for evaluation. Larisa reports OT will see pt once x 1 week, twice x 2 weeks, then once x 6 weeks. Larisa also reports that pt has 2+ pitting edema in left foot. Larisa was advised that foot has had swelling since pt's fall. Larisa report there is no redness or pain. Pt does say there is some discomfort at times but foot is not painful. Nisha Clayton LPN [facility] 04-20-2025 Telephone encounter Note See TE from 04/20/25 My CAO with [facility] was going to have updated medication list faxed over to provider office. Gabi Mcelroy RN [facility] 04-20-2025 Miscellaneous Notes See TE from 04/20/25 My CAO with [facility] was going to have updated medication list faxed over to provider office. Gabi Mcelroy, RN TC to nurse at [place] to obtain current med list. Unable to reach. Left detailed message for nurse to [facility]. PCP office needs updated med list. Mike Guo MA documented in this encounter [facility] 04-20-2025 Telephone encounter Note Called and left a detailed voicemail notifying My CAO with [facility] of providers message. Clinic phone number was left in case she had any questions. Gabi Mcelroy RN [facility] 04-20-2025 Miscellaneous Notes Called and left a detailed voicemail notifying My CAO with [facility] of providers message. Clinic phone number was left in case she had any questions. Gabi Mcelroy RN Verbal ok for the same Regards, Dillan Santiago MD My CAO with [facility] called and is notified of providers message. She voices understanding and reports that yes she does need the orders for the 16 puerto rican indwelling lizarraga. She states she can take a verbal order for that and we can leave a VM as her line is secure. She is also going to have her office fax over an updated medication list from when she was at the halfway when she is done with her note. Gabi Mcelroy RN Agree Does she need orders for the 16 puerto rican indwelling lizarraga? Thanks Regards, Dillan Santiago MD Call received from My, nurse at [facility], regarding orders for Pt (see below notation). [facility] nurse observed Pt self-cath, and she was not cleansing herself well. Pt's daughter is voicing concern about Pt's inability to do this at home. [facility] is requesting order for chronic indwelling lizarraga cathether, 16F. Last OV with urology - Tom Baltazar PA-C: 12/23/2024 yM, home health nurse phone: [facility] office phone: Fax number for orders: Josy Saucedo RN April 20, 2025 4:07 PM My calling back she will fax list from the SNF and will have to update med list with her admission notes to [facility] and fax that when she is able. Called and left a message for My CAO with [facility] that if she has an updated medication list from when the Pt was in the halfway if she could fax that to Dr Santiago at [phone]. Gabi Mcelroy RN My CAO with [facility] called in POC. She states SN will be seeing Pt three times a week for 2 weeks, then twice a week for 3 weeks, then once a week for 3 weeks. She states she is going to schedule a visit tomorrow if the provider will give them order to reinsert a lizarraga catheter. She reports that while the Pt was in the halfway she had a lizarraga catheter in, and it fell out last night. My reports they do not have orders for a lizarraga cath, so they would need order to place the lizarraga and manage it. She reports the Pt had been straight cathing before, but the daughter was worried because the Pt had been getting frequent UTIs and has dementia. She reports she watched the Pt straight cath herself and she had to prompt her to clean herself before straight cathing. Pt was able to empty her bladder over the toilet, and got quite a bit out. The nurse said she told Pt and her daughter to continue to do this until she could see if she could get an order for a lizarraga cath. My SN also reported Pt has 3 stage 2 clustered on her L buttock, 1) 1 cm x 0.5 cm 2) 0.5 cm x 0.5 cm 3) 0.5 cm x 0.5 cm. She states she covered it with a DuoDerm. She was asking if the provider could put in an order for this to cover with a DuoDerm and change Q 2-5 days depending on soilage. Please call and advise. Gabi Mcelroy RN documented in this encounter [facility] 04-20-2025 Telephone encounter Note Verbal ok for the same Regards, Dillan Santiago MD [facility] 04-20-2025 Telephone encounter Note My CAO with [facility] called and is notified of providers message. She voices understanding and reports that yes she does need the orders for the 16 puerto rican indwelling lizarraga. She states she can take a verbal order for that and we can leave a VM as her line is secure. She is also going to have her office fax over an updated medication list from when she was at the halfway when she is done with her note. Gabi Mcelroy RN [facility] 04-20-2025 Telephone encounter Note Agree Does she need orders for the 16 puerto rican indwelling lizarraga? Thanks Regards, Dillan Santiago MD [facility] 04-20-2025 Telephone encounter Note Call received from My, nurse at [facility], regarding orders for Pt (see below notation). [facility] nurse observed Pt self-cath, and she was not cleansing herself well. Pt's daughter is voicing concern about Pt's inability to do this at home. [facility] is requesting order for chronic indwelling lizarraga cathether, 16F. Last OV with urology - Tom Baltazar PA-C: 12/23/2024 My, [facility] nurse phone: [facility] office phone: Fax number for orders: Josy Saucedo RN April 20, 2025 4:07 PM [facility] 04-20-2025 Telephone encounter Note My calling back she will fax list from the SNF and will have to update med list with her admission notes to [facility] and fax that when she is able. [facility] 04-20-2025 Telephone encounter Note Called and left a message for My CAO with [facility] that if she has an updated medication list from when the Pt was in the halfway if she could fax that to Dr Santiago at [phone]. Gabi Mcelroy RN [facility] 04-20-2025 Telephone encounter Note My CAO with [facility] called in HH POC. She states SN will be seeing Pt three times a week for 2 weeks, then twice a week for 3 weeks, then once a week for 3 weeks. She states she is going to schedule a visit tomorrow if the provider will give them order to reinsert a lizarraga catheter. She reports that while the Pt was in the halfway she had a lizarraga catheter in, and it fell out last night. My SN reports they do not have orders for a lizarraga cath, so they would need order to place the lizarraga and manage it. She reports the Pt had been straight cathing before, but the daughter was worried because the Pt had been getting frequent UTIs and has dementia. She reports she watched the Pt straight cath herself and she had to prompt her to clean herself before straight cathing. Pt was able to empty her bladder over the toilet, and got quite a bit out. The nurse said she told Pt and her daughter to continue to do this until she could see if she could get an order for a lizarraga cath. 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 She states she covered it with a DuoDerm. She was asking if the provider could put in an order for this to cover with a DuoDerm and change Q 2-5 days depending on soilage. Please call and advise. Gabi Mcelroy RN [facility] 04-17-2025 Telephone encounter Note We discussed about letter and she said she will message me when needed Regards, Dillan Santiago MD [facility] 04-17-2025 Miscellaneous Notes We discussed about letter and she said she will message me when needed Regards, Dillan Santiago MD Sw spoke with patient daughter in regards to Home Health questions and also current housing AL options. Maribeth and Thomas discussed that [facility] looks to be an option for home healthcare. Thomas left message for [facility] referral line to call this Sw back to confirm if they will be serving patient home healthcare needs. Maribeth notes that [facility] will be providing home laboratory animal care veterinarian next week when patient stays at her apt. Maribeth notes that patient will then be coming to stay with her,until opening at [facility]. Maribeth notes that she is working on getting bedroom ready at there home for patient to come and stay with he. There is a wait list at [facility]. Thomas will let patient daughter know what she finds out from [facility]. Maribeth also mentioned a letter for her mom's current [employer] apt, to see about being released from her housing there. Thomas noted that she would send message to Dr. Santiago to see what she says about letter. Sw tried call to patient daughter and vmail is full, unable to leave message. Sw will try call another time. This Sw received consult and will work on reaching out to patient daughter to discuss social service needs. This Sw also notes that there is a message from today from [facility] noting orders for SN,PT,OT. It looks like Dr. Santiago agreed to [facility] seeing patient. documented in this encounter [facility] 04-17-2025 Telephone encounter Note Sw spoke with patient daughter in regards to Home Health questions and also current housing AL options. Maribeth and Thomas discussed that [facility] looks to be an option for home healthcare. Sw left message for [facility] referral line to call this Sw back to confirm if they will be serving patient home healthcare needs. Maribeth notes that [facility] will be providing home laboratory animal care veterinarian next week when patient stays at her apt. Maribeth notes that patient will then be coming to stay with her,until opening at [facility]. Maribeth notes that she is working on getting bedroom ready at there home for patient to come and stay with he. There is a wait list at [facility]. Sw will let patient daughter know what she finds out from [facility]. Maribeth also mentioned a letter for her mom's current [employer] apt, to see about being released from her housing there. Thomas noted that she would send message to Dr. Santiago to see what she says about letter. [facility] 04-17-2025 Telephone encounter Note Sw tried call to patient daughter and justinoail is full, unable to leave message. Sw will try call another time. [facility] 04-17-2025 Note HNO ID: [id number] Author: DILLAN SANTIAGO MD Service: ? Author Type: Physician Type: Progress Notes Filed: 04/17/2025 17:30 Note Text: Reason for Visit Transition care follow up HPI Michaela is a 84-year-old female, with a history of dementia, presenting for evaluation following a fall and subsequent hospitalization. She is accompanied by her daughter, who is providing history on her behalf. Michaela experienced a fall on 03/01, resulting in a left hip fracture. She was admitted to a transitional care unit until 03/04, followed by a stay at [facility] beginning on 03/19. Michaela is scheduled to be discharged from [facility] on Sunday. Her daughter has arranged for 16 hours of daily care for a week post-discharge and is exploring long-term care options, including assisted living facilities. Michaela has developed pressure ulcers, described as bed sores, which require management by a skilled nurse. She is currently using an indwelling urinary catheter and is unable to resume self-catheterization. Michaela has been experiencing loose stools and has reduced her food intake due to a lack of appetite. Her current weight is approximately 127 lbs. She is also using adult incontinence products. Michaela has a history of left hip fracture, which was repaired with a screw rather than a replacement. She has been experiencing balance issues and lower extremity weakness, which have worsened since the fall. Prior to the fall, she was using a walker and occasionally a cane. She also has a history of DVT and is currently on anticoagulation therapy until May. She is taking multiple medications, including Aricept, Trazodone, and Lexapro, which was recently increased. She has been struggling with depression and anxiety and has not yet received a psychiatric evaluation. Michaela has a history of urinary retention and has been using self-catheterization for an extended period. She denies urinary incontinence. She also has a history of hemorrhoids, for which she uses a topical cream. She denies issues with sleep. Social History Tobacco Use Smoking status: Never Smokeless tobacco: Never Vaping Use Vaping status: Never Used Substance Use Topics Alcohol use: Never Drug use: Never Past medical history, appointments, medications, allergies reviewed. Pertinent Lab/Diagnostic Studies are reviewed and discussed today Current Outpatient Medications: ascorbic acid (VITAMIN C ORAL) donepezil (ARICEPT) 10 mg tablet Catheter (SELF-CATHETER, FEMALE) 14 Fr misc levothyroxine (EUTHYROX) 50 mcg tablet escitalopram oxalate (LEXAPRO) 20 mg tablet traZODone (DESYREL) 50 mg tablet clonazePAM (KLONOPIN) 0.5 mg tablet clonazePAM (KLONOPIN) 0.5 mg tablet Health Maintenance DTaP,Tdap,Td Vaccine(1 - Tdap) Bone Density Screening Shingrix Vaccine(2 of 3) RSV Vaccine(1 - 1-dose 75+ series) Pneumococcal Vaccine: 50+(2 of 2 - PCV) Covid-19 Vaccine( season) Advance Directive Discussion@ Review Of Systems Constitutional: (+) decreased appetite Gastrointestinal: (+) diarrhea Musculoskeletal: (+) lower extremity weakness Skin: (+) sacral pressure ulcers Neurological: (+) balance difficulty Psychiatric: (+) depressed mood, (+) anxiety, (-) insomnia Physical Exam BP 124/71 Pulse 67 Resp 16 LMP (LMP Unknown) SpO2 98% GENERAL: NAD, alert and oriented. SKIN: Unremarkable, no rash or skin lesions. Three small pressure ulcers on the left buttock, each less than 1 cm, with regular margins and erythematous base, no slough noted. Maceration noted in the intergluteal cleft. HEAD: Normocephalic. EYES: PERRLA, EOMI, conjunctiva clear. EARS: External ears normal, canals clear, TM's normal. NECK: Supple, no lymphadenopathy, normal thyroid, no carotid bruits. LUNGS: Clear to auscultation bilaterally, no wheezes/rhonchi/rales. HEART: Regular rate and rhythm, no murmurs. No ectopy. EXTREMITIES: Normal, no deformities, no skin discoloration, no edema. NEURO: Awake, alert and oriented x3, cranial nerves II-XII grossly intact, normal gait, no involuntary motions. Assessment and Plan 1. Weakness of both lower extremities (R29.898) Balance disorder (R26.89) Ambulatory dysfunction (R26.2) Patient exhibits lower extremity weakness and balance issues, contributing to ambulatory dysfunction. Recent fall on March 01 exacerbated these conditions. - Ordered home health services for physical therapy and occupational therapy to address lower extremity weakness and balance issues. - Referral sent to [facility] for PT and OT. 2. 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 Healing is delayed, contributing to mobility issues. - Monitor healing progress through follow-up appointments. - Co (more content not included)... [facility] 04-17-2025 Telephone encounter Note This Sw received consult and will work on reaching out to patient daughter to discuss social service needs. This Sw also notes that there is a message from today from [facility] noting orders for SN,PT,OT. It looks like Dr. Santiago agreed to [facility] seeing patient. [facility] 04-17-2025 History of Presen t illness Narrative Reason for Visit Transition care follow up MOLLY Jennings is a 84-year-old female, with a history of dementia, presenting for evaluation following a fall and subsequent hospitalization. She is accompanied by her daughter, who is providing history on her behalf. Michaela experienced a fall on 03/01, resulting in a left hip fracture. She was admitted to a transitional care unit until 03/04, followed by a stay at [facility] beginning on 03/19. Michaela is scheduled to be discharged from [facility] on Sunday. Her daughter has arranged for 16 hours of daily care for a week post-discharge and is exploring long-term care options, including assisted living facilities. Michaela has developed pressure ulcers, described as bed sores, which require management by a skilled nurse. She is currently using an indwelling urinary catheter and is unable to resume self-catheterization. Michaela has been experiencing loose stools and has reduced her food intake due to a lack of appetite. Her current weight is approximately 127 lbs. She is also using adult incontinence products. Michaela has a history of left hip fracture, which was repaired with a screw rather than a replacement. She has been experiencing balance issues and lower extremity weakness, which have worsened since the fall. Prior to the fall, she was using a walker and occasionally a cane. She also has a history of DVT and is currently on anticoagulation therapy until May. She is taking multiple medications, including Aricept, Trazodone, and Lexapro, which was recently increased. She has been struggling with depression and anxiety and has not yet received a psychiatric evaluation. Michaela has a history of urinary retention and has been using self-catheterization for an extended period. She denies urinary incontinence. She also has a history of hemorrhoids, for which she uses a topical cream. She denies issues with sleep. Social History Tobacco Use Smoking status: Never Smokeless tobacco: Never Vaping Use Vaping status: Never Used Substance Use Topics Alcohol use: Never Drug use: Never Past medical history, appointments, medications, allergies reviewed. Pertinent Lab/Diagnostic Studies are reviewed and discussed today Current Outpatient Medications: ascorbic acid (VITAMIN C ORAL) donepezil (ARICEPT) 10 mg tablet Catheter (SELF-CATHETER, FEMALE) 14 Fr misc levothyroxine (EUTHYROX) 50 mcg tablet escitalopram oxalate (LEXAPRO) 20 mg tablet traZODone (DESYREL) 50 mg tablet clonazePAM (KLONOPIN) 0.5 mg tablet clonazePAM (KLONOPIN) 0.5 mg tablet Health Maintenance DTaP,Tdap,Td Vaccine(1 - Tdap) Bone Density Screening Shingrix Vaccine(2 of 3) RSV Vaccine(1 - 1-dose 75+ series) Pneumococcal Vaccine: 50+(2 of 2 - PCV) Covid-19 Vaccine( season) Advance Directive Discussion@ Review Of Systems Constitutional: (+) decreased appetite Gastrointestinal: (+) diarrhea Musculoskeletal: (+) lower extremity weakness Skin: (+) sacral pressure ulcers Neurological: (+) balance difficulty Psychiatric: (+) depressed mood, (+) anxiety, (-) insomnia Physical Exam BP 124/71 Pulse 67 Resp 16 LMP (LMP Unknown) SpO2 98% GENERAL: NAD, alert and oriented. SKIN: Unremarkable, no rash or skin lesions. Three small pressure ulcers on the left buttock, each less than 1 cm, with regular margins and erythematous base, no slough noted. Maceration noted in the intergluteal cleft. HEAD: Normocephalic. EYES: PERRLA, EOMI, conjunctiva clear. EARS: External ears normal, canals clear, TM's normal. NECK: Supple, no lymphadenopathy, normal thyroid, no carotid bruits. LUNGS: Clear to auscultation bilaterally, no wheezes/rhonchi/rales. HEART: Regular rate and rhythm, no murmurs. No ectopy. EXTREMITIES: Normal, no deformities, no skin discoloration, no edema. NEURO: Awake, alert and oriented x3, cranial nerves II-XII grossly intact, normal gait, no involuntary motions. Assessment and Plan 1. Weakness of both lower extremities (R29.898) Balance disorder (R26.89) Ambulatory dysfunction (R26.2) Patient exhibits lower extremity weakness and balance issues, contributing to ambulatory dysfunction. Recent fall on March 01 exacerbated these conditions. - Ordered home health services for physical therapy and occupational therapy to address lower extremity weakness and balance issues. - Referral sent to [facility] for PT and OT. 2. 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 Healing is delayed, contributing to mobility issues. - Monitor healing progress through follow-up appointments. - Continue physical therapy to improve mobility and strength. 3. 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 - Continue current medications: Aricept, Trazodone, and Lexapro. - Consider psychiatric evaluation to assess and manage anxiety and depression. 4. Pressure injury of sacral region, unstageable (HCC) (L89.150)- _ It appears to be stage 2 ulcer - Ordered retirement for wound care management. - Utilize hypochlorous acid for cleaning and apply collagenase as needed. - Implement measures to offload pressure and promote healing. 5. Urinary catheter in place (Z96.0) Indwelling urinary catheter in place; patient is no longer able to perform self-catheterization due to physical limitations and risk of UTIs. - Home health or urology to manage catheter care, including monthly changes. - Monitor for signs of urinary tract infections. 6. Malnutrition, unspecified type (HCC) (E46) Patient exhibits signs of malnutrition, including decreased appetite and weight loss. - Encourage nutritional supplements such as Ensure to improve caloric intake. - Monitor weight and nutritional status regularly. 7. Anxiety and depression (F41.9) Patient is experiencing anxiety and depression, likely exacerbated by current medical conditions and limitations. - Continue current medications: Lexapro and Trazodone. - Consider psychiatric evaluation for further management. 8. Insomnia, unspecified type (G47.00) Insomnia is being managed with Trazodone. - Continue Trazodone as prescribed. - Monitor sleep patterns and adjust treatment if necessary. 9. 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 - Continue anticoagulation therapy as prescribed. - Monitor for signs of bleeding or recurrence of DVT. Voice recognition software was used to compose this office note. Please excuse any unintended typographical errors. Recording using [employer] software for draft documentation of the visit was discussed with the patient/authorized signs and displays sales representative; all questions welcomed and answered. Patient/authorized signs and displays sales representative agreed to proceed Dillan Santiago MD documented in this encounter [facility] 04-17-2025 Instructions Dillan Santiago MD - 04/17/2025 12:47 PM EDT We discussed your current health concerns and care plan: - Pressure Ulcers (Bedsores): - You have three small pressure ulcers (less than 1 cm each) on your left buttock and sacral region, with some moisture-associated skin damage. These are likely stage 2 or 3 but do not currently have slough, which is a positive sign for healing. - custodial will be arranged to clean and care for these wounds. They will use appropriate cleaning solutions (e.g., hypochlorous acid) and apply treatments like collagenase if needed. - It is important to offload pressure from the affected areas to promote healing. - Urinary Catheter: - You are now using a permanent urinary catheter and will no longer be able to self-catheterize. This is to prevent complications such as urinary tract infections (UTIs), which you have experienced in the past. - custodial will assist with catheter care, including monthly changes. - Physical and Occupational Therapy: - Home health services will provide physical therapy (PT) and occupational therapy (OT) to address your lower extremity weakness, balance issues, and overall mobility. This will help prevent further deconditioning and improve your ability to move safely. - Nutrition and Weight: - You have reported a decreased appetite and are not eating enough, which may be contributing to weight loss and malnutrition. - Please try to incorporate nutritional shakes (e.g., Ensure) into your diet to support healing and maintain your strength. These were helpful during your stay at [facility]. - Mental Health: - You are experiencing anxiety and depression, which have been challenging for you. Your current medications include Lexapro (recently increased) and Trazodone, which may help with these symptoms. - A psychiatric evaluation may be beneficial to further address your mental health needs. This will be coordinated as part of your care plan. - Medications: - You are currently on a blood thinner (Eliquis) due to a history of deep vein thrombosis (DVT). This will continue until May. - Other medications include Aricept (for memory), Trazodone, Lexapro, and others. We are awaiting an updated medication list from [place] to confirm all current prescriptions and dosages. - Living Arrangements: - Your daughter is exploring assisted living options for you, including a facility in [facility]. This will require private pay for two years before Medicaid can assist. In the meantime: - You will stay in your apartment for one week while your daughter prepares her home for you. - Your daughter has arranged for 16 hours of daily private care for one week to assist with your needs during this transition. - Home Health Services: - A referral has been sent to [facility] for retirement, PT, and OT. They will also assess your eligibility for additional home health aide services. - Your jaxon rojas is working with [facility] and other resources to explore options for affordable care beyond the initial week of private pay. - Additional Notes: - You have a history of dementia (Alzheimer s type), ambulatory dysfunction, and fatigue. These conditions will be monitored as part of your ongoing care. - Your daughter is also addressing financial and insurance matters, including potential benefits from your late s service, to support your care needs. Next Steps: - custodial, PT, and OT will be arranged through home health services. Your daughter will coordinate with the providers to ensure timely care. - Continue to use your urinary catheter as directed and avoid attempting self-catheterization. - Incorporate nutritional shakes into your diet to support healing and weight maintenance. - Your daughter will follow up on assisted living arrangements and provide updates as plans progress. Please let us know if you experience any worsening symptoms, such as increased pain, signs of infection (e.g., fever, redness, or swelling around the wounds), or any other concerns. documented in this encounter [facility] 04-17-2025 Telephone encounter Note TC to nurse at [place] to obtain current med list. Unable to reach. Left detailed message for nurse to [facility]. PCP office needs updated med list. Mike Guo MA [facility] 04-17-2025 Telephone encounter Note Wes with [employer] called and is notified of providers message. She voices understanding. Gabi Mcelroy, RN [facility] 04-17-2025 Miscellaneous Notes Wes with [employer] called and is notified of providers message. She voices understanding. Gabi Mcelroy, RN Will follow RegardsDillan MD Wes with [employer] called in and reports they received a referral for SN/PT/OT. She is asking if provider will fallow. Please call back. Gabi Mcelroy RN documented in this encounter [facility] 04-17-2025 Telephone encounter Note Will follow Dillan Patel MD [facility] 04-17-2025 Telephone encounter Note Wes with [facility] called in and reports they received a referral for SN/PT/OT. She is asking if provider will fallow. Please call back. Gabi Mcelroy RN [facility] 03-19-2025 Telephone encounter Note Thanks and noted Regards, Dillan Santiago MD [facility] 03-19-2025 Miscellaneous Notes Thanks and noted Regards, Dillan Santiago MD Canceled appointment for tomorrow per patients daughter request. Mckenzie Lombardo LPN March 19, 2025 4:00 PM Sw spoke with patient daughter Maribeth. Maribeth notes that patient is currently at [facility] right now. Transitioned there today. Maribeth notes that she needs to cancel patient appt with Dr. Santiago tomorrow. Thomas notes that she will send message to Dr. Santiago regarding this need. Maribeth also noted that she is going to send My Chart message as well in regards to cancelling appt. Maribeth notes that the [facility] had encouraged patient to go to [facility] for further care after being in [facility] TCU. Daughter is trying to get with admissions at [facility] in regards to them saying that she is going there for 30 days and being placed in LTC and not Rehab. Daughter also notes that she has an appt next week with [employer] for financial planning. Maribeth also noted that she would like patient to see Dr. Santiago if and when she leaves [place]. While in [place], patient will be followed by their provider. Sw did encourage patient daughter to also reach out to [facility] and [facility] for further support guidance regarding LTC planning. Thomas will forward note to Dr. Santiago and her office in regards to appt cancellation need for tomorrow. documented in this encounter [facility] 03-19-2025 Telephone encounter Note Canceled appointment for tomorrow per patients daughter request. Mckenzie Lombardo LPN March 19, 2025 4:00 PM [facility] 03-19-2025 Telephone encounter Note Thomas spoke with patient daughter Maribeth. Maribeth notes that patient is currently at [facility] right now. Transitioned there today. Maribeth notes that she needs to cancel patient appt with Dr. Santiago tomorrow. Thomas notes that she will send message to Dr. Santiago regarding this need. Maribeth also noted that she is going to send My Chart message as well in regards to cancelling appt. Maribeth notes that the [facility] had encouraged patient to go to [facility] for further care after being in [facility] TCU. Daughter is trying to get with admissions at [facility] in regards to them saying that she is going there for 30 days and being placed in LTC and not Rehab. Daughter also notes that she has an appt next week with [employer] for financial planning. Maribeth also noted that she would like patient to see Dr. Santiago if and when she leaves [place]. While in [place], patient will be followed by their provider. Thomas did encourage patient daughter to also reach out to [facility] for further support guidance regarding LTC planning. Thomas will forward note to Dr. Santiago and her office in regards to appt cancellation need for tomorrow. [facility] 03-16-2025 Note [facility] Medical Records Department [address] [place] [address] Discharge Summary 03/16/252012 MR#: [id number] Acct: [id number] Name: MICHAELA BRANDT Rep #: [id number] : 1940 84 From: Garfield Yo MD PCP: Dr. Dillan Santiago MD Status:ADM IN Location: [place] [address] Providers Date of Admission: 03/04/25 Primary Care Physician: Dr. Dillan Santiago MD Reason For Visit: LEFT HIP PAIN W/ INTERTROCHANTERIC FX Diagnosis Discharge Diagnosis (1) Debility: Status: Acute Code(s): R53.81 - Other malaise (2) Fall: Status: Inactive Code(s): W19.XXXA - Unspecified fall, initial encounter (3) Closed intertrochanteric fracture of left hip: Status: Inactive Code(s): S72.142A - Displaced intertrochanteric fracture of left femur, initial encounter for closed fracture (4) Acute pain of left knee: Status: Resolved Code(s): M25.562 - Pain in left knee (5) Dementia: Status: Acute Code(s): F03.90 - Unspecified dementia, unspecified severity, without behavioral disturbance, psychotic disturbance, mood disturbance, and anxiety (6) Anxiety: Status: Acute Code(s): F41.9 - Anxiety disorder, unspecified (7) Depression: Status: Acute Code(s): F32.A - Depression, unspecified (8) Hypothyroidism: Status: Acute Code(s): E03.9 - Hypothyroidism, unspecified (9) Insomnia: Status: Acute Code(s): G47.00 - Insomnia, unspecified (10) Urinary retention: Status: Acute Code(s): R33.9 - Retention of urine, unspecified Plan 84 year old female with below past medical history hospitalized for fall, left hip fracture, underwent left hip cephalomedullary nail fixation 03/02/[address] Overton, complicated by left knee pain, admitted to TCU with debility, here for rehabilitation, strengthening, prior to discharge home alone. * Debility - PT/OT. * Pain - Tylenol 1000mg q6 prn pain (1-10). * Bowel - senna/colace 1 tablet bid, Magnesium citrate 300mL daily prn. * Adult immunization - Administer pneumonia vaccine, covid vaccine, flu vaccine as appropriate. * DVT prophylaxis - Aspirin 81mg bid thru 04/01/2025. * Vitamin C deficiency - Vitamin C 500mg daily. * Anxiety - Clonazepam 0.5mg tid prn, stable chronic retirement use, GDR not recommended. * Dementia NOS - Donepezil 10mg daily. 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 * Hypothyroidism - Levothyroxine 50mcg daily. 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 Medications at Discharge Home Medications ascorbic acid (vitamin C) 500 mg tablet (C-500) 500 mg PO DAILY supplement 03/01/25 donepezil 10 mg tablet 10 mg PO DAILY dementia 03/01/25 escitalopram oxalate 20 mg tablet 20 mg PO DAILY anxiety 03/01/25 levothyroxine 50 mcg tablet 50 mcg PO DAILY thyroid 03/01/25 trazodone 50 mg tablet 50 mg PO QHS anxiety 03/01/25 acetaminophen 500 mg tablet 1,000 mg (2 x 500 mg) PO Q8 #0 tabs 03/16/25 apixaban 5 mg tablet (Eliquis) 5 mg PO BID #0 tabs 03/16/25 clonazepam 0.5 mg tablet 0.25 mg (1/2 x 0.5 mg) PO 0600 3 days #2 tabs 03/16/25 clonazepam 0.5 mg tablet 0.5 mg PO QHS 3 days #3 tabs 03/16/25 sennosides 8.6 mg-docusate sodium 50 mg tablet (Stimulant Laxative Plus) 1 tab PO BID #0 tabs 03/16/25 tramadol 50 mg tablet 50 mg PO Q6H PRN PRN Pain Score 1-5 3 days #12 tabs 03/16/25 Hospital Course Operations - (See below.) Procedures None Summary of Care Provided Minutes Spent on Discharge: 35 Hospital Course: 84 year old female with below past medical history hospitalized for fall, left hip fracture, underwent left hip cephalomedullary nail fixation 03/02/[address] Overton, complicated by left knee pain, admitted to TCU with debility, here for rehabilitation, strengthening, prior to discharge home alone. 03/09/2025 Doppler ultrasound left lower extremity positive for dvt, treat with Eliquis 5mg bid thru 06/08/2025. Discharge to [facility], intermediate, part B therapies. Physical Exam Const alert General Appearance: cooperative HEENT normocephalic Eyes PERRL and EOMs intact bilaterally Neck supple, no JVD and no carotid bruits Resp normal respiratory effort, normal air movement and clear to auscultation bilaterally Cardio regular rate and regular rhythm GI normal to inspection, nondistended, normoactive bowel sounds, non-tender and non-distended Bladder / Kidney Exam: catheter in place urethral Extremity normal capillary refill General Extremity: Negative for edema Skin no rashes or lesions noted General Skin Exam: no breakdown Psych affect normal Appearance: appropriate Weight / BMI Weight Weight: 58.967 kg Body Mass Index (BMI) 25.4 ABG / Lab / Microbiology Data 03/12/25 05:26 03/12/25 05:26 D/C Instructions Discharge Diet: No restrictions Di (more content not included)... [facility] 03-04-2025 Note [facility] Medical Records Department [address] [place] [address] History Physical Exam 03/04/25 1717 MR#: [id number] Acct: [id number] Name: MICHAELA BRANDT Rep #: [id number] : 1940 84 From: Garfield Yo MD PCP: Dr. Dillan Santiago MD Status:ADM IN Location: [facility] U14-1 HPI - General General Date of Admission: 03/04/25 Date of Service: 03/04/25 Chief Complaint: Here for rehabilitation. HPI Narrative MICHAELA BRANDT, is a 84 Female who presents with followin03/01/2025 [facility] ED fall. Left knee injury, fell off bed, hurt left knee, unable to move left knee. History left knee surgery, moved to [facility] recently. CT brain negative, CT left knee negative. X-ray showed left hip fracture. Left knee immobilizer applied. 03/01/2025 Admit [facility]. Tylenol, Oxycodone, Dilaudid, prepare for surgery for left hip fracture. PT/OT/CM. 03/02/2025 Dr. Overton performed left hip cephalomedullary nail fixation. 03/02/2025 No complaints. Pain control, PT/OT. 03/03/2025 Comfortable in bed, pain controlled. Lovenox for dvt prophylaxis. Pain control, bowel regimen. PT/OT. 03/04/2025 Tylenol, Oxycodone, Morphine IV for pain. Incentive spirometry. Hemoglobin 8.7. PT/OT TCU. 03/04/2025 Admit to TCU with debility, here for rehabilitation, strengthening, prior to discharge home alone. [facility] Medical History (Updated 03/04/25 @ 17:[address] Garfield Yo MD) Hypothyroidism Anxiety Dementia Self-catheterizes urinary bladder Hypertension Back pain Home Medications ???Medication ???Instructions ???Recorded ???Last Taken ???Type ascorbic acid (vitamin C) 500 mg 500 mg PO DAILY supplement 5 03/04/25 History tablet (C-500) clonazepam 0.5 mg tablet 0.5 mg PO TID PRN anxiety 03/01/25 03/01/25 History donepezil 10 mg tablet 10 mg PO DAILY dementia 03/01/25 0 03/04/25 History escitalopram oxalate 20 mg tablet 20 mg PO DAILY anxiety 03/01/25 0 03/03/25 History levothyroxine 50 mcg tablet 50 mcg PO DAILY thyroid 03/01/25 0 03/04/25 History trazodone 50 mg tablet 50 mg PO QHS anxiety 03/01/25/04/12 History acetaminophen 325 mg tablet (Aphen) 650 mg (2 x 325 mg) PO Q6H PRN 03/04/25 Unknown Rx pain #30 tabs aspirin 81 mg capsule 81 mg PO BID prophylactic 28 days 03/04/25 Unknown Rx #56 caps Allergy/AdvReac Type Severity Reaction Status Date / Time No Known Allergies Allergy Verified 03/04/25 15:58 Family History Other Hypertension Surgical History H/O: hysterectomy Status post right knee replacement Social History household members: none housing: apartment current occupational status: retired other: Daughter lives a few doors down helps her on a regular basis Smoking Status: Never smoker alcohol intake: never substance use type: does not use ROS Constitutional Constitutional: Reports weakness; Denies chills, fever(s) or weight gain ENT HEENT: Denies headache(s), nasal congestion or nasal discharge Cardiovascular Cardiovascular: Denies chest pain or palpitations Respiratory/Chest Respiratory/Chest: Denies cough, excessive phlegm production or shortness of breath with exertion Gastrointestinal Gastrointestinal: Denies abdominal pain, nausea or vomiting Genitourinary Genitourinary: Denies dysuria Musculoskeletal Musculoskeletal: Denies joint pain or joint swelling Integumentary Integumentary: Denies rash or wounds Neurologic Neurologic: Denies focal weakness, numbness or tingling Psychiatric Psychiatric: Denies anxiety, auditory hallucinations, depression, homicidal ideation or suicidal ideation Vital Signs Vital Signs Vital Signs: 03/04/25 15:16 03/04/25 16:25 Temperature 98.6 F Temperature Source Temporal Pulse Rate 92 Pulse Rhythm Regular Pulse Strength Normal (2+) Respiratory Rate 16 16 Respiratory Effort Normal Non-Labored Respiratory Depth Normal Respiratory Pattern Normal Blood Pressure 153/57 H Blood Pressure Mean 89 Blood Pressure Source Monitor Blood Pressure Position Semi-Fowlers Blood Pressure Location Left Arm Pulse Ox 95 Oxygen Delivery Method Room Air Room Air Weight Weight: 58.513 kg Body Mass Index (BMI) 25.2 Physical Exam Const alert General Appearance: cooperative HEENT normocephalic Eyes PERRL and EOMs intact bilaterally Neck supple, no JVD and no carotid bruits Resp normal respiratory effort, normal air movement and clear to auscultation bilaterally Cardio regular rate and regular rhythm GI normal to inspection, nondistended, normoactive bowel sounds, non-tender and non-distended Extremity normal capi (more content not included)... [facility] 03-04-2025 Consult note [facility] 03-04-2025 Discharge summary Note Date/Time March 04, 2025 12:22pm [facility] Medical Records Department [address] [place] [address] Transfer to [facility] MR#: [id number] Acct: [id number] Name: MICHAELA BRANDT Rep #:[id number] : 1940 84 From: Allison Tran MD PCP: Dr. Dillan Santiago MD Status:ADM I N Certification of patient admission REQUIRED AT TIME OF ADMISSION. I CERTIFY THAT POST-HOSPITAL ECF SERVICES ARE REQUIRED TO BE GIVEN ON AN IN-PATIENT BASIS BECAUSE OF THE ABOVE NAMED PATIENT'S NEED FOR CUSTODIAL CARE ON A CONTINUING BASIS FOR THE CONDITION(S) FOR WHICH HE/SHE WAS RECEIVING IN-PATIENT HOSPITAL SERVICES PRIOR TO HIS/HER TRANSFER TO THE ECF. 03/04/25 1222<Electronically signed by Allison Tran MD> Diet Diet Order/Speech Therapy: 03/02/25 16:20 Diet: Regular - General Routine Orders/Code Status Enema Type: Fleetz Enema Frequency: Daily PRN Suppository Type: Dulcolax 10mg DC O2, CPAP, BIPAP needs Home O2 Discharge instructions: No Wound(s) LEFT HIP: Wound Type: Surgical Incision Therapies Weight Bearing: Weight bearing as tolerated Physical Therapy: Eval and Treat Occupational Therapy: Eval and Treat Problem/Diagnosis (1) Closed intertrochanteric fracture of left hip: Status: Acute Code(s): S72.142A - Displaced intertrochanteric fracture of left femur, initial encounterfor closed fracture Plan #Left hip fracture due to mechanical fall * s/p left cephalomedullary nailing. Today is POD 1 * orthopedic surgery on board * PT/OT On board. Fall precautions * on PO tylenol, PO oxycodone and IV morphine prn for pain * incentive spirometry * #Anemia: * Hemoglobin is 8.7. Was 11.6 yesterday. * Likely due to acute blood loss anemia from surgery. * Will monitor closely for now. * #Dementia: on donepezil #Hypothyroidism: on synthroid #Anxiety and depression: on trazodone, lexapro and clonazepam. DVT prophylaxis: lovenox COde status: DNRCCA with intubation Disposition: awaiting placement in TCU, pending precert. * Allergies/Procedures Done in Hospital Allergies No Known Allergies Allergy (Verified 03/01/25 11:27) Procedures: None Type of Care/Length of Stay Estimated LOS: Convalescent Care Less Than 30 days Type of Care Needed: Skilled Rehab Potential: Fair Prognosis: Fair Additional Orders/Day of Discharge Day of Discharge: 03/04/25 Discharge Plan Admission Admit Date/Time: 03/01/25 13:47 Primary Reason for Your Visit: left hip fracture Attending Provider: Allison Tran Primary Care Provider: Dillan Santiago Consulting Providers: Boston Rosas; Roro Long Instructions Patient Instructions: Hip Fx Surg Dc Discharge Orders/Prescriptions Prescriptions: New aspirin 81 mg capsule 81 mg PO BID 28 Days Qty: 56 0RF acetaminophen [Aphen] 325 mg tablet 650 mg PO Q6H PRN (Reason: pain) Qty: 30 1RF Continued trazodone 50 mg tablet 50 mg PO QHS donepezil 10 mg tablet 10 mg PO DAILY clonazepam 0.5 mg tablet 0.5 mg PO TID PRN (Reason: anxiety) Patient Comments: PT TAKES 1/2 TAB IN MORNING AND 1 TAB AT BEDTIME. levothyroxine 50 mcg tablet 50 mcg PO DAILY escitalopram oxalate 20 mg tablet 20 mg PO DAILY Patient Comments: PT TAKES AT BEDTIME. ascorbic acid (vitamin C) [C-500] 500 mg tablet 500 mg PO DAILY Referrals / Follow Up: Dillan Santiago MD [Primary Care Provider] - Within 1 Week Boston Rosas DO [Med Staff - Active Staff] - Within 2 Weeks Disposition Disposition (needs filled in before D/C Order can be placed): Long Term Facility 03/04/25 1222 <Electronically signed by Allison Tran MD> Cosigner Signature (if applicable): CC: Dr. Dillan Santiago MD; Dr. Roro Long DO; Dr. Boston Rosas DO ~ [facility] Work Phone: [phone] Discharge summary [facility] Medical Records Department [address] [place] [address] Transfer to [facility] MR#: [id number] Acct: [id number] Name: MICHAELA BRANDT Rep #:[id number] : 1940 84 From: Allison Tran MD PCP: Dr. Dillan Santiago MD Status:ADM I N Certification of patient admission REQUIRED AT TIME OF ADMISSION. I CERTIFY THAT POST-HOSPITAL ECF SERVICES ARE REQUIRED TO BE GIVEN ON AN IN-PATIENT BASIS BECAUSE OF THE ABOVE NAMED PATIENT'S NEED FOR CUSTODIAL CARE ON A CONTINUING BASIS FOR THE CONDITION(S) FOR WHICH HE/SHE WAS RECEIVING IN-PATIENT HOSPITAL SERVICES PRIOR TO HIS/HER TRANSFER TO THE [facility]. 03/04/25 1222 Diet Diet Order/Speech Therapy: 03/02/25 16:20 Diet: Regular - General Routine Orders/Code Status Enema Type: Fleetz Enema Frequency: Daily PRN Suppository Type: Dulcolax 10mg DC O2, CPAP, BIPAP needs Home O2 Discharge instructions: No Wound(s) LEFT HIP: Wound Type: Surgical Incision Therapies Weight Bearing: Weight bearing as tolerated Physical Therapy: Eval and Treat Occupational Therapy: Eval and Treat Problem/Diagnosis (1) Closed intertrochanteric fracture of left hip: Status: Acute Code(s): S72.142A - Displaced intertrochanteric fracture of left femur, initial encounterfor closed fracture Plan #Left hip fracture due to mechanical fall * s/p left cephalomedullary nailing. Today is POD 1 * orthopedic surgery on board * PT/OT On board. Fall precautions * on PO tylenol, PO oxycodone and IV morphine prn for pain * incentive spirometry * #Anemia: * Hemoglobin is 8.7. Was 11.6 yesterday. * Likely due to acute blood loss anemia from surgery. * Will monitor closely for now. * #Dementia: on donepezil #Hypothyroidism: on synthroid #Anxiety and depression: on trazodone, lexapro and clonazepam. DVT prophylaxis: lovenox COde status: DNRCCA with intubation Disposition: awaiting placement in TCU, pending precert. * Allergies/Procedures Done in Hospital Allergies No Known Allergies Allergy (Verified 03/01/25 11:27) Procedures: None Type of Care/Length of Stay Estimated LOS: Convalescent Care Less Than 30 days Type of Care Needed: Skilled Rehab Potential: Fair Prognosis: Fair Additional Orders/Day of Discharge Day of Discharge: 03/04/25 Discharge Plan Admission Admit Date/Time: 03/01/25 13:47 Primary Reason for Your Visit: left hip fracture Attending Provider: Allison Tran Primary Care Provider: Dillan Santiago Consulting Providers: Boston Rosas; Roro Long Instructions Patient Instructions: Hip Fx Surg Dc Discharge Orders/Prescriptions Prescriptions: New aspirin 81 mg capsule 81 mg PO BID 28 Days Qty: 56 0RF acetaminophen [Aphen] 325 mg tablet 650 mg PO Q6H PRN (Reason: pain) Qty: 30 1RF Continued trazodone 50 mg tablet 50 mg PO QHS donepezil 10 mg tablet 10 mg PO DAILY clonazepam 0.5 mg tablet 0.5 mg PO TID PRN (Reason: anxiety) Patient Comments: PT TAKES 1/2 TAB IN MORNING AND 1 TAB AT BEDTIME. levothyroxine 50 mcg tablet 50 mcg PO DAILY escitalopram oxalate 20 mg tablet 20 mg PO DAILY Patient Comments: PT TAKES AT BEDTIME. ascorbic acid (vitamin C) [C-500] 500 mg tablet 500 mg PO DAILY Referrals / Follow Up: Dillan Santiago MD [Primary Care Provider] - Within 1 Week Boston Rosas DO [Med Staff - Active Staff] - Within 2 Weeks Disposition Disposition (needs filled in before D/C Order can be placed): Long Term Facility 03/04/25 1222 Cosigner Signature (if applicable): CC: Dr. Dillan Santiago MD; Dr. Roro Long DO; Dr. Boston Rosas DO ~ [facility] Center04-16-2025 [facility] Medical Records Department [address] [place] [id number] Discharge Summary 03/04/25 1222 MR#: [id number] Acct: [id number] Name: MICHAELA BRANDT Rep #: [id number] : 1940 84 From: Allison Tran MD PCP: Dr. Dillan Santiago MD Status:DIS IN Location: [place] [address] Providers Date of Admission: 03/01/25 Date of Discharge: 03/04/25 Primary Care Physician: Dr. 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/metal painter Routine Comment: Consult: Orthopedics Routine Consulting Provider: Boston Rosas Reason for Consult: Left intertrochanteric fracture EMERGENT Consult: No MD Notified: Yes Date Notified: 03/01/25 Time Notified: 13:49 Method of Notification: ED Physician Initiated Reason For Visit: LEFT HIP PAIN WITH INTERTROCHANTERIC FX Diagnosis Discharge Diagnosis (1) Closed intertrochanteric fracture of left hip: Status: Acute Code(s): S72.142A - Displaced intertrochanteric fracture of left femur, initial encounter for closed fracture Plan #Left hip fracture due to mechanical fall * s/p left cephalomedullary nailing. Today is POD 1 * orthopedic surgery on board * PT/OT On board. Fall precautions * on PO tylenol, PO oxycodone and IV morphine prn for pain * incentive spirometry * #Anemia: * Hemoglobin is 8.7. Was 11.6 yesterday. * Likely due to acute blood loss anemia from surgery. * Will monitor closely for now. * #Dementia: on donepezil #Hypothyroidism: on synthroid #Anxiety and depression: on trazodone, lexapro and clonazepam. DVT prophylaxis: lovenox COde status: DNRCCA with intubation Disposition: awaiting placement in TCU, pending precert. * Medications at Discharge Home Medications ascorbic acid (vitamin C) 500 mg tablet (C-500) 500 mg PO DAILY supplement 03/01/25 clonazepam 0.5 mg tablet 0.5 mg PO TID PRN anxiety 03/01/25 donepezil 10 mg tablet 10 mg PO DAILY dementia 03/01/25 escitalopram oxalate 20 mg tablet 20 mg PO DAILY anxiety 03/01/25 levothyroxine 50 mcg tablet 50 mcg PO DAILY thyroid 03/01/25 trazodone 50 mg tablet 50 mg PO QHS anxiety 03/01/25 acetaminophen 325 mg tablet (Aphen) 650 mg (2 x 325 mg) PO Q6H PRN pain #30 tabs 03/04/25 aspirin 81 mg capsule 81 mg PO BID prophylactic 28 days #56 caps 03/04/25 Hospital Course Operations - (left hip cephalomedullary nailing) Procedures None Summary of Care Provided Minutes Spent on Discharge: 47 Hospital Course: Patient is an 84-year-old female with past medical history as outlined was admitted to the ED on 03/01/2025 with complaint of left leg pain after mechanical fall. He was sitting on the side of the bed and slipped off and landed on her left hip, with resultant significant pain. She initially complained of knee pain but when she came into the ED the pain was found to be rather in her left hip. Imaging done showed acute intertrochanteric fracture of the left femur. Left x-ray initially showed acute fracture of the left lateral femoral condyle but CT of the knee done was negative for any evidence of fracture. CT of the brain showed no acute intracranial pathology. Orthopedic surgery was consulted. She had left cephalomedullary nailing done on 03/02/2025. Postop course was uncomplicated and patient did well. She was placed on p.o. aspirin 81 mg twice daily for DVT prophylaxis. [facility]. At the request of patient's daughter, patient was discharged on only p.o. Tylenol 650 mg every 6 hours as needed for pain. Daughter did not want mother to have any opioids as she felt that the opioids made her mother much more confused in the setting of her underlying dementia. She was discharged on p.o. aspirin 81 mg twice daily for 28 days for DVT prophylaxis, per orthopedics recommendation. Patient seen and examined prior to discharge. She had no active complaints. Her daughter was by her bedside. Review of systems otherwise negative. Labs and vitals reviewed. Home medication reviewed and reconciled. Physical Exam Const alert, oriented x3, no apparent distress, average body habitus and well nourished General Appearance: cooperative, comfortable and well kempt Orientation / Consciousness: awake Exam Limitations: no limitations HEENT normocephalic, head/scalp atraumatic, hearing grossly normal bilaterally, moist oral mucous membranes and oropharynx normal Mouth: oral and palatal mucosa normal Eyes PERRL, EOMs intact bilaterally and conjunctivae normal Neck no lymphadenopathy and supple Lymph Lymphatic: no lymphadenopathy noted and no lymphedema noted Resp normal respiratory effort, normal air movement, no retractions, no use of accessory muscles and clear to auscultation bilaterally Resp Narrative: on room air. Cardio regular rate, regular rhythm, S1 normal heart sound, S2 n (more content not included)...[facility]04-15-2025 Progress note Author Josy Parks [facility] Note Date/Time March 03, 2025 5:1 6pm [facility] Medical Records Department [address] [place] [address] Progress Note - Orthopedic 03/03/25 1316 MR#: [id number] Acct: [id number] Name: MICHAELA BRANDT Rep #:[id number] : 1940 84 From: Josy HOUSE PCP: Dr. Dillan Santiago MD Status:ADM I N Location: [place] [address] Subjective Subjective Patient is lying comfortably in bed. Patient states that her pain is controlled. Patient states that she has not been up and walking. Patient states that she has not even been up and to the bathroom. Patient denies any nausea, vomiting, dizziness, lightheadedness. Patient denies any shortness of breath, chest pain, calf pain. Patient denies any fever, chills, signs of infection. Patient denies any adverse events overnight. Objective Data Objective Data Vital Signs: Vital Signs Temp Pulse Resp BP Pulse Ox O2 Del Method 98.8 F 108 H 16 129/64 H 97 Room Air 03/03/25 11:29 03/03/25 11:29 03/03/25 11:29 03/03/25 11:29 03/03/25 11:29 03/03/25 11:29 Oxygen Delivery Method Room Air Weight: 57.7 kg Body Mass Index (BMI) 25.0 Intake & Output: Intake and Output for Last 24 Hours 03/01/25 03/02/25 03/03/25 23:59 23:59 23:59 Intake Total 1772.25 / 1772.25 50 / 50 Output Total 1075 / 1075 1725 / 1725 Balance 697.25 / 697.25 -1675 / -1675 Lab / Micro Data 03/03/25 07:02 03/03/25 07:02 Labs: Laboratory Results - last 24 hr 03/03/25 07:02: WBC 12.8 H, RBC 2.88 L, Hgb 8.7 L, Hct 25.5 L, MCV 88.5, MCH 30.2, MCHC 34.1, RDW Std Deviation 42.8, RDW Coeff of Leslie 13.2, Plt Count 171, MPV 10.4, Immature Gran % (Auto) 0.800, Neut % (Auto) 74.6 H, Lymph % (Auto) 12.6 L, [place] % (Auto) 9.6, Eos % (Auto) 1.9, Baso % (Auto) 0.5, Absolute Neuts (auto) 9.5 H, Absolute Lymphs (auto) 1.61, Nucleated RBC % 0, Sodium 137, Potassium 3.9, Chloride 102, Carbon Dioxide 25.7, Anion Gap 10, BUN 13, Creatinine 0.94, Estim Creat Clear Calc 35.43 L, Est GFR (MDRD) Non-Af 60, BUN/Creatinine Ratio 13.6, Glucose 102 H, Calcium 8.3 Radiography Diagnostic Testing: Radiology Impression Hip X-Ray 03/02/25 14:45 IMPRESSION: The prosthetic hardware appears to be intact without evidence of fracture or loosening. Reading Location: [facility] Physical Exam Narrative 1. MEJIA hose in place bilaterally. 2. SCDs in place bilaterally. 3. Dressings are clean dry and intact. 4. Left hip is soft and supple. 5. Dorsiflexion and plantarflexion are performed without pain or restriction. 6. Sensation intact to light touch. 7. Neurovascularly intact. 8. Negative Homans bilaterally. Const alert, oriented x3 and no apparent distress Assessment & Plan Assessment/Plan (1) Closed intertrochanteric fracture of left hip: PLAN: Status post Left hip cephalomedullary nailing day 1. 1. DVT prophylaxis: Patient is currently doing Lovenox for enhanced DVT prophylaxis. Dr. Overton recommended aspirin 81 mg twice daily for 4 weeks upon discharge. Patient will wear MEJIA hose for 2 weeks postoperatively. Denies past history of DVT or pulmonary embolism. 2. Pain medications: Patient will be on Tylenol 1000 mg every 8 hours taking nomore than 3000 mg in 24 hours. Patient will then be taking oxycodone as needed for pain control. OARRS report was reviewed today. The risk of abuse potentialfor narcotic pain medication was discussed and reviewed. Patient was advised not to drive motor vehicle or operate a vehicle while taking narcotic pain medications. Patient voiced understanding. 3. Constipation: Patient was instructed to take senna as instructed until her first bowel movement to decrease risk of impaction following surgery. Patient was instructed if she has not had a bowel movement in 3 days to call our office. 4. H&H: 8.06/12.5. At this time patient is asymptomatic and afebrile. Due to hemoglobin being below the threshold of 10 we will start ferrous sulfate and folic acid today. Patient was educated on the risk of constipation with ferrous sulfate. I would recommend that patient follow-up with primary care provider a week or 2 to ensure that hemoglobin is increasing. Will be managed by primary care team. 5. Reactive leukocytosis: Current white blood cell count is 12.8. Patient is asymptomatic and afebrile. Patient did not receive Decadron intraoperatively. 6. Physical therapy: Patient is to be weightbearing as tolerated with walker atthis time. Patient does have outpatient physical therapy established. 7. Incentive spirometry: Patient was encouraged to use incentive spirometer every hour that they are awake for the first week to decrease risk of postoperative lung infection. 8. Dressings: Patient was educated they are allowed to get dressing wet on postop day 1. Patient was educated they are allowed to remove dressing on postop day 5 and can leave open to air as long as incision is clean, dry, intact. 9. Patient is a follow-up for postoperative instructions. 10. Appreciate recommendations from medicine for safe and appropriate discharge. Medicine is currently primary care team. 11. Patient is okay for discharge from orthopedic services as long as pain maintains adequately controlled, patient works with physical therapy and is well, and is okay per medicine who is currently primary care team. Contact orthopedic with any concerns or questions 03/03/25 0280 <Electronically signed by Josy HOUSE> Cosigner Signature (if applicable): CC: ~ Signed [facility] Work Phone: [phone] 351-521904-15-2025 Progress note [facility] Medical Records Department [address] [place] [address] Progress Note - Orthopedic 03/03/25 1316 MR#: [id number] Acct: [id number] Name: MICHAELA BRANDT Rep #:[id number] : 1940 84 From: Josy HOUSE PCP: Dr. Dillan Santiago MD Status:ADM I N Location: [address] Subjective Subjective Patient is lying comfortably in bed. Patient states that her pain is controlled. Patient states that she has not been up and walking. Patient states that she has not even been up and to the bathroom.Patient denies any nausea, vomiting, dizziness, lightheadedness. Patient denies any shortness of breath, chest pain, calf pain. Patient denies any fever, chills, signs of infection. Patient denies any adverse events overnight. Objective Data Objective Data Vital Signs: Vital Signs Temp Pulse Resp BP Pulse Ox O2 Del Method 98.8 F 108 H 16 129/64 H 97 Room Air 03/03/25 11:29 03/03/25 11:29 03/03/25 11:29 03/03/25 11:29 03/03/25 11:29 03/03/25 11:29 Oxygen Delivery Method Room Air Weight: 57.7 kg Body Mass Index (BMI) 25.0 Intake & Output: Intake and Output for Last 24 Hours 03/01/25 03/02/25 03/03/25 23:59 23:59 23:59 Intake Total 1772.25 / 1772.25 50 / 50 Output Total 1075 / 1075 1725 / 1725 Balance 697.25 / 697.25 -1675 / -1675 Lab / Micro Data 03/03/25 07:02 03/03/25 07:02 Labs: Laboratory Results - last 24 hr 03/03/25 07:02: WBC 12.8 H, RBC 2.88 L, Hgb 8.7 L, Hct 25.5 L, MCV 88.5, MCH 30.2, MCHC 34.1, RDW Std Deviation 42.8, RDW Coeff of Leslie 13.2, Plt Count 171, MPV 10.4, Immature Gran % (Auto) 0.800, Neut % (Auto) 74.6 H, Lymph % (Auto) 12.6 L, [place] % (Auto) 9.6, Eos % (Auto) 1.9, Baso % (Auto) 0.5, Absolute Neuts (auto) 9.5 H, Absolute Lymphs (auto) 1.61, Nucleated RBC % 0, Sodium 137, Potassium 3.9, Chloride 102, Carbon Dioxide 25.7, Anion Gap 10, BUN 13, Creatinine 0.94, Estim Creat Clear Calc 35.43 L, Est GFR (MDRD) Non-Af 60, BUN/Creatinine Ratio 13.6, Glucose 102 H, Calcium 8.3 Radiography Diagnostic Testing: Radiology Impression Hip X-Ray 03/02/25 14:45 IMPRESSION: The prosthetic hardware appears to be intact without evidence of fracture or loosening. Reading Location: [id number] Physical Exam Narrative 1. MEJIA hose in place bilaterally. 2. SCDs in place bilaterally. 3. Dressings are clean dry and intact. 4. Left hip is soft and supple. 5. Dorsiflexion and plantarflexion are performed without pain or restriction. 6. Sensation intact to light touch. 7. Neurovascularly intact. 8. Negative Homans bilaterally. Const alert, oriented x3 and no apparent distress Assessment & Plan Assessment/Plan (1) Closed intertrochanteric fracture of left hip: PLAN: Status post Left hip cephalomedullary nailing day 1. 1. DVT prophylaxis: Patient is currently doing Lovenox for enhanced DVT prophylaxis. Dr. Overton recommended aspirin 81 mg twice daily for 4 weeks upon discharge. Patient will wear MEJIA hose for 2 weeks postoperatively. Denies past history of DVT or pulmonary embolism. 2. Pain medications: Patient will be on Tylenol 1000 mg every 8 hours taking nomore than 3000 mg in24 hours. Patient will then be taking oxycodone as needed for pain control. OARRS report was reviewed today. The risk of abuse potentialfor narcotic pain medication was discussed and reviewed. Patient was advised not to drive motor vehicle or operate a vehicle while taking narcotic pain medications. Patient voiced understanding. 3. Constipation: Patient was instructed to take senna as instructed until her first bowel movement to decrease risk of impaction following surgery. Patient was instructed if she has not had a bowel movement in 3 days to call our office. 4. H&H: 8.7/.5. At this time patient is asymptomatic and afebrile. Due to hemoglobin being below the threshold of 10 we will start ferrous sulfate and folic acid today. Patient was educated on the risk of constipation with ferrous sulfate. I would recommend that patient follow-up with primarycare provider a week or 2 to ensure that hemoglobin is increasing. Will be managed by primary care team. 5. Reactive leukocytosis: Current white blood cell count is 12.8. Patient is asymptomatic and afebrile. Patient did not receive Decadron intraoperatively. 6. Physical therapy: Patient is to be weightbearing as tolerated with walker atthis time. Patient does have outpatient physical therapy established. 7. Incentive spirometry: Patient was encouraged to use incentive spirometer every hour that they are awake for the first week to decrease risk of postoperative lung infection. 8. Dressings: Patient was educated they are allowed to get dressing wet on postop day 1. Patient was educated they are allowed to remove dressing on postop day 5 and can leave open to air as long as incision is clean, dry, intact. 9. Patient is a follow-up for postoperative instructions. 10. Appreciate recommendations from medicine for safe and appropriate discharge. Medicine is currently primary care team. 11. Patient is okay for discharge from orthopedic services as long as pain maintains adequately controlled, patient works with physical therapy and is well, and is okay per medicine who is currently primary care team. Contact orthopedic with any concerns or questions 03/03/25 5246 Cosigner Signature (if applicable): CC: ~ Signed [facility]04-15-2025 Progress note Author Allison Tran [facility] Note Date/Time March 03, 2025 3:1 1pm [facility] Medical Records Department [address] [place] [address] Progress Note 03/03/25 1459 MR#: [id number] Acct: [id number] Name: MICHAELA BRANDT Rep #:[id number] : 1940 84 From: Allison Tran MD PCP: Dr. Dillan Santiago MD Status:ADM I N Location: [place] [address]1 Subjective Subjective Patient seen and examined. Her daughter was by her bedside. She had no active complaints. Pain was well-controlled. She is postop day 1 for left hip cephalomedullary nailing. She has remained hemodynamically stable. Objective Data Objective Data Vital Signs: Vital Signs Temp Pulse Resp BP Pulse Ox O2 Del Method 99.2 F H 98 18 108/59 L 96 Room Air 03/03/25 14:38 03/03/25 14:38 03/03/25 14:38 03/03/25 14:38 03/03/25 14:38 03/03/25 14:38 Oxygen Delivery Method Room Air Weight: 127 lb 3.307 oz Body Mass Index (BMI) 25.0 Intake & Output: Intake and Output for Last 24 Hours 03/01/25 03/02/25 03/03/25 23:59 23:59 23:59 Intake Total 1772.25 / 1772.25 50 / 50 Output Total 1075 / 1075 1725 / 1725 Balance 697.25 / 697.25 -1675 / -1675 Lab / Micro Data 03/03/25 07:02 03/03/25 07:02 Labs: Laboratory Results - last 24 hr 03/03/25 07:02: WBC 12.8 H, RBC 2.88 L, Hgb 8.7 L, Hct 25.5 L, MCV 88.5, MCH 30.2, MCHC 34.1, RDW Std Deviation 42.8, RDW Coeff of Leslie 13.2, Plt Count 171, MPV 10.4, Immature Gran % (Auto) 0.800, Neut % (Auto) 74.6 H, Lymph % (Auto) 12.6 L, [place] % (Auto) 9.6, Eos % (Auto) 1.9, Baso % (Auto) 0.5, Absolute Neuts (auto) 9.5 H, Absolute Lymphs (auto) 1.61, Nucleated RBC % 0, Sodium 137, Potassium 3.9, Chloride 102, Carbon Dioxide 25.7, Anion Gap 10, BUN 13, Creatinine 0.94, Estim Creat Clear Calc 35.43 L, Est GFR (MDRD) Non-Af 60, BUN/Creatinine Ratio 13.6, Glucose 102 H, Calcium 8.3 Radiography Diagnostic Testing: Radiology Impression Hip X-Ray 03/02/25 14:45 IMPRESSION: The prosthetic hardware appears to be intact without evidence of fracture or loosening. Reading Location: [facility] Physical Exam Const alert, oriented x3, no apparent distress, average body habitus and well nourished General Appearance: cooperative HEENT normocephalic, head/scalp atraumatic, hearing grossly normal bilaterally, moist oral mucous membranes and oropharynx normal Eyes PERRL and EOMs intact bilaterally Neck no lymphadenopathy and supple Lymph Lymphatic: no lymphadenopathy noted and no lymphedema noted Resp normal respiratory effort, normal air movement, no retractions, no use of accessory muscles and clear to auscultation bilaterally Resp Narrative: on room air. Cardio regular rate, regular rhythm, S1 normal heart sound, S2 normal heart sound and no murmurs GI normal to inspection, nondistended, normoactive bowel sounds, soft to palpation,non-tender and non-distended Extremity normal capillary refill, no clubbing, cyanosis or edema and no calf tenderness Extremity Narrative: LLE in knee brace. Intact dressing over left hip Skin General Skin Exam: no breakdown Neuro oriented x3, CN's II-XII intact bilaterally, no focal motor deficits and no sensory deficits noted Speech: speech normal Motor Exam: general weakness Psych thought process normal and cooperative; Negative for affect normal Appearance: appropriate Assessment & Plan Assessment/Plan (1) Acute pain of left knee: (2) Closed intertrochanteric fracture of left hip: PLAN: Plan #Left hip fracture due to mechanical fall * s/p left cephalomedullary nailing. Today is POD 1 * orthopedic surgery on board * PT/OT On board. Fall precautions * on PO tylenol, PO oxycodone and IV morphine prn for pain * incentive spirometry * #Anemia: * Hemoglobin is 8.7. Was 11.6 yesterday. * Likely due to acute blood loss anemia from surgery. * Will monitor closely for now. * #Dementia: on donepezil #Hypothyroidism: on synthroid #Anxiety and depression: on trazodone, lexapro and clonazepam. DVT prophylaxis: lovenox COde status: DNRCCA with intubation Disposition: awaiting placement in TCU, pending precert. * Charges/Coding Visit Charges Inpatient E&M: 27044 Subs Hosp L2 03/03/25 1511 <Electronically signed by Allison Tran MD> Allison Tran MD Cosigner Signature (if applicable): CC: ~ Signed [facility] Work Phone: [phone] Progress note [facility] Medical Records Department [address] [place] [address] Progress Note 03/03/25 5249 MR#: [id number] Acct: [id number] Name: MICHAELA BRANDT Rep #:[id number] : 1940 84 From: Allison Tran MD PCP: Dr. Dillan Santiago MD Status:ADM I N Location: [place] [address] Subjective Subjective Patient seen and examined. Her daughter was by her bedside. She had no active complaints. Pain was well-controlled. She is postop day 1 for left hip cephalomedullary nailing. She has remained hemodynamically stable. Objective Data Objective Data Vital Signs: Vital Signs Temp Pulse Resp BP Pulse Ox O2 Del Method 99.2 F H 98 18 108/59 L 96 Room Air 03/03/25 14:38 03/03/25 14:38 03/03/25 14:38 03/03/25 14:38 03/03/25 14:38 03/03/25 14:38 Oxygen Delivery Method Room Air Weight: 127 lb 3.307 oz Body Mass Index (BMI) 25.0 Intake & Output: Intake and Output for Last 24 Hours 03/01/25 03/02/25 03/03/25 23:59 23:59 23:59 Intake Total 1772.25 / 1772.25 50 / 50 Output Total 1075 / 1075 1725 / 1725 Balance 697.25 / 697.25 -1675 / -1675 Lab / Micro Data 03/03/25 07:02 03/03/25 07:02 Labs: Laboratory Results - last 24 hr 03/03/25 07:02: WBC 12.8 H, RBC 2.88 L, Hgb 8.7 L, Hct 25.5 L, MCV 88.5, MCH 30.2, MCHC 34.1, RDW Std Deviation 42.8, RDW Coeff of Leslie 13.2, Plt Count 171, MPV 10.4, Immature Gran % (Auto) 0.800, Neut % (Auto) 74.6 H, Lymph % (Auto) 12.6 L, [place] % (Auto) 9.6, Eos % (Auto) 1.9, Baso % (Auto) 0.5, Absolute Neuts (auto) 9.5 H, Absolute Lymphs (auto) 1.61, Nucleated RBC % 0, Sodium 137, Potassium 3.9, Chloride 102, Carbon Dioxide 25.7, Anion Gap 10, BUN 13, Creatinine 0.94, Estim Creat Clear Calc 35.43 L, Est GFR (MDRD) Non-Af 60, BUN/Creatinine Ratio 13.6, Glucose 102 H, Calcium 8.3 Radiography Diagnostic Testing: Radiology Impression Hip X-Ray 03/02/25 14:45 IMPRESSION: The prosthetic hardware appears to be intact without evidence of fracture or loosening. Reading Location: [facility] Physical Exam Const alert, oriented x3, no apparent distress, average body habitus and well nourished General Appearance: cooperative HEENT normocephalic, head/scalp atraumatic, hearing grossly normal bilaterally, moist oral mucous membranes and oropharynx normal Eyes PERRL and EOMs intact bilaterally Neck no lymphadenopathy and supple Lymph Lymphatic: no lymphadenopathy noted and no lymphedema noted Resp normal respiratory effort, normal air movement, no retractions, no use of accessory muscles and clear to auscultation bilaterally Resp Narrative: on room air. Cardio regular rate, regular rhythm, S1 normal heart sound, S2 normal heart sound and no murmurs GI normal to inspection, nondistended, normoactive bowel sounds, soft to palpation,non-tender and non-distended Extremity normal capillary refill, no clubbing, cyanosis or edema and no calf tenderness Extremity Narrative: LLE in knee brace. Intact dressing over left hip Skin General Skin Exam: no breakdown Neuro oriented x3, CN's II-XII intact bilaterally, no focal motor deficits and no sensory deficits noted Speech: speech normal Motor Exam: general weakness Psych thought process normal and cooperative; Negative for affect normal Appearance: appropriate Assessment & Plan Assessment/Plan (1) Acute pain of left knee: (2) Closed intertrochanteric fracture of left hip: PLAN: Plan #Left hip fracture due to mechanical fall * s/p left cephalomedullary nailing. Today is POD 1 * orthopedic surgery on board * PT/OT On board. Fall precautions * on PO tylenol, PO oxycodone and IV morphine prn for pain * incentive spirometry * #Anemia: * Hemoglobin is 8.7. Was 11.6 yesterday. * Likely due to acute blood loss anemia from surgery. * Will monitor closely for now. * #Dementia: on donepezil #Hypothyroidism: on synthroid #Anxiety and depression: on trazodone, lexapro and clonazepam. DVT prophylaxis: lovenox COde status: DNRCCA with intubation Disposition: awaiting placement in TCU, pending precert. * Charges/Coding Visit Charges Inpatient E&M: 26228 [facility] Hosp L2 03/03/25 1511 Allison Tran MD Cosigner Signature (if applicable): CC: ~ Signed [facility]04-15-2025 Consult note Author Jim Vidales [facility] Note Date/Time March 04, 2025 2:5 7pm [facility] Medical Records Department [address] [place] [address] Anesthesia Postop Eval II 03/03/25 0905 MR#: [id number] Acct: [id number] Name: MICHAELA BRANDT Rep #:[id number] : 1940 84 From: Jim Vidales MD PCP: Dr. Dillan Santiago MD Status:ADM I N Y Race: C Location: [place] [address] Anesthesia Postop Eval I Sum Postop Eval Completion status Anesthesia document: Postop Eval 1 completed: Yes Anesthesia Postop Eval I Summary Anesthesia Postop Eval I Summary: Anesthesia Postop Eval I: Assessment Summary Airway patent Yes 03/02/25 13:00 AQUATIC SCIENTIST.JDEF Spontaneous unlabored Yes 03/02/25 13:00 AQUATIC SCIENTIST.JDEF respirations Mental status Asleep 03/02/25 13:00 AQUATIC SCIENTIST.JDEF nausea No 03/02/25 13:00 AQUATIC SCIENTIST.JDEF Vomiting No 03/02/25 13:00 AQUATIC SCIENTIST.JDEF Anesthesia Postop Eval I: Fluid Summary Crystalloid volume administer 600 03/02/25 13:00 AQUATIC SCIENTIST.JDEF (ml) Colloids volume administered ( ml) Blood Product volume administered (ml) Total IV fluid infused 600 03/02/25 13:00 AQUATIC SCIENTIST.JDEF Anesthesia Postop Eval I: Summary Notes Anesthesia Complication No 03/02/25 13:00 AQUATIC SCIENTIST.JDEF Anesthesia Complication Comment: Post-operative progress note Anesthesia: Postop Eval II Evaluation Mental status: Awake and Calm Pain Level: 2 nausea: No Vomiting: No Complications Anesthesia Complication: No 03/03/25904 <Electronically signed by Jim hererra MD> Date _ Jim Vidales MD Cosigner Signature: Date CC: ~ Signed [facility] Work Phone: 1(333) 254-221504-14-2025 Progress note Author Allison [facility] Note Date/Time March 02, 2025 3:5 0pm [facility] Medical Records Department [address] [place] [address] Progress Note 03/02/25 1133 MR#: [id number] Acct: [id number] Name: MICHAELA BRANDT Rep #:[id number] : 1940 84 From: Allison Tran MD PCP: Dr. Dillan Santiago MD Status:ADM I N Location: [place] [address] Subjective Subjective Patient seen and examined. Her daughter was by her bedside. She had no active complaints. She denies any pain. Review of systems is otherwise negative. She has remained hemodynamically stable. Objective Data Objective Data Vital Signs: Vital Signs Temp Pulse Resp BP Pulse Ox O2 Del Method 97.5 F L 62 14 138/60 H 100 Room Air 03/02/25 11:09 03/02/25 11:09 03/02/25 11:03/02/25 11:03/02/25 11:09 03/02/25 07:36 Oxygen Delivery Method Room Air Weight: 127 lb 3.307 oz Body Mass Index (BMI) 25.0 Intake & Output: Intake and Output for Last 24 Hours 02/28/25 03/01/25 03/02/25 23:59 23:59 23:59 Intake Total 698.75 / 698.75 Output Total 450 / 450 Balance 248.75 / 248.75 Lab / Micro Data 03/02/25 05:20 03/02/25 05:20 Labs: Laboratory Results - last 24 hr 03/01/25 12:15: WBC 18.8 H, RBC 4.28, Hgb 13.0, Hct 37.3, MCV 87.1, MCH 30.4, MCHC 34.9, RDW Std Deviation 40.5, RDW Coeff of Leslie 12.9, Plt Count 239, MPV 10.3, Immature Gran % (Auto) 0.600, Neut % (Auto) 92.1 H, Lymph % (Auto) 3.3 L, [place] % (Auto) 3.8, Eos % (Auto) 0.0, Baso % (Auto) 0.2, Absolute Neuts (auto) 17.3 H, Absolute Lymphs (auto) 0.63 L, Nucleated RBC % 0, PT 14.9, INR 1.1, APTT25.8, Sodium 140, Potassium 4.2, Chloride 104, Carbon Dioxide 25.2, Anion Gap 11, BUN 16, Creatinine 0.90, Estim Creat Clear Calc 37.62 L, Est GFR (MDRD) Non-Af 63, BUN/Creatinine Ratio 17.4, Glucose 148 H, Calcium 9.2, Vitamin D 25-Hydroxy 29.9 L, Blood Type B POSITIVE, Antibody Screen NEGATIVE 03/02/25 05:20: WBC 12.9 H, RBC 3.80 L, Hgb 11.6 L, Hct 33.7 L, MCV 88.7, MCH 30.5, MCHC 34.4, RDW Std Deviation 42.8, RDW Coeff of Leslie 13.2, Plt Count 203, MPV 9.5, Immature Gran % (Auto) 0.900, Neut % (Auto) 76.7 H, Lymph % (Auto) 11.6L, [place] % (Auto) 9.5, Eos % (Auto) 0.9, Baso % (Auto) 0.4, Absolute Neuts (auto)9.9 H, Absolute Lymphs (auto) 1.50, Nucleated RBC % 0, Sodium 140, Potassium 4.0, Chloride 103, Carbon Dioxide 27.7, Anion Gap 9, BUN 16, Creatinine 1.06, Estim Creat Clear Calc 31.45 L, Est GFR (MDRD) Non-Af 52 L, BUN/Creatinine Ratio 15.4, Glucose 109 H, Calcium 9.0, Phosphorus 4.0, Magnesium 2.2, Total Bilirubin1.32 H, AST 27, ALT 11, Alkaline Phosphatase 55, Total Protein 6.0, Albumin 3.7,Globulin 2.3, Albumin/Globulin Ratio 1.6, TSH 1.470 Radiography Diagnostic Testing: Radiology Impression Hip/Pelvis X-Ray 03/01/25 11:41 IMPRESSION: Acute intertrochanteric fracture of the left femur. Reading Location: [facility] Knee X-Ray 03/01/25 11:41 IMPRESSION: Acute fracture of the left lateral femoral condyle. Reading Location: [facility] Brain CT 03/01/25 12:42 IMPRESSION: 1. No acute intracranial finding. 2. Findings of chronic microvascular ischemic changes and age-related changes. Reading Location: [facility] Lower Extremity CT 03/01/25 12:42 IMPRESSION: No acute osseous fracture. The previously visualized osseous fragment along the distal lateral left femoral condyle is secondary to diffuse bone lucency and probable nutrient channel. Reading Location: [facility] Chest X-Ray 03/01/25 13:59 IMPRESSION: Emphysema/fibrosis. No acute findings. Reading Location: [facility] Physical Exam Const alert, oriented x3, no apparent distress and well nourished General Appearance: cooperative HEENT normocephalic, head/scalp atraumatic, moist oral mucous membranes and oropharynxnormal Eyes PERRL and EOMs intact bilaterally Neck no lymphadenopathy and supple Lymph Lymphatic: no lymphadenopathy noted and no lymphedema noted Resp normal respiratory effort, normal air movement and clear to auscultation bilaterally Resp Narrative: on room air. Cardio regular rate, regular rhythm, S1 normal heart sound, S2 normal heart sound and no murmurs GI normal to inspection, nondistended, normoactive bowel sounds, soft to palpation,non-tender and non-distended Extremity normal capillary refill, no clubbing, cyanosis or edema and no calf tenderness Extremity Narrative: LLE in knee brace Skin General Skin Exam: no breakdown Neuro CN's II-XII intact bilaterally, no focal motor deficits and no sensory deficits noted Motor Exam: general weakness Psych thought process normal and cooperative Appearance: appropriate Assessment & Plan Assessment/Plan (1) Acute pain of left knee: (2) Closed intertrochanteric fracture of left hip: PLAN: Plan #Left hip fracture due to mechanical fall * admitted with a complaint of mechanical fall with resultant left hip pain * imaging done showed left hip fracture- acute intertrochanteric fracture of the left femur and also showed acute fracture of the left lateral femoral condyle * CT showed a likely diffuse bone lucency. * CT of the brain showed no acute intracranial pathology and CXr showed emphysematous changes and fibrosis but on acute findings. * currently NPO * orthopedic surgery on board; for surgery later today * PT/OT On board. Fall precautions * on PO tylenol, PO oxycodone and IV morphine prn for pain * #Dementia: on donepezil #Hypothyroidism: on synthroid #Anxiety and depression: on trazodone, lexapro and clonazepam. DVT prophylaxis: lovenox COde status: DNRCCA with intubation * Charges/Coding Visit Charges Inpatient E&M: 35246 Subs Hosp L2 03/02/25 1550 <Electronically signed by Allison Tran MD> Allison Tran MD Cosigner Signature (if applicable): CC: ~ Signed [facility] Work Phone: 1(619) 890-118304-14-2025 Progress note [facility] Medical Records Department [address] [place] [address] Progress Note 03/02/25 1133 MR#: [id number] Acct: [id number] Name: MICHAELA BRANDT Rep #:[id number] : 1940 84 From: Allison Tran MD PCP: Dr. Dillan Santiago MD Status:ADM I N Location: [place] [address] Subjective Subjective Patient seen and examined. Her daughter was by her bedside. She had no active complaints. She denies any pain. Review of systems is otherwise negative. She has remained hemodynamically stable. Objective Data Objective Data Vital Signs: Vital Signs Temp Pulse Resp BP Pulse Ox O2 Del Method 97.5 F L 62 14 138/60 H 100 Room Air 03/02/25 11:09 03/02/25 11:09 03/02/25 11:09 03/02/25 11:09 03/02/25 11:09 03/02/25 07:36 Oxygen Delivery Method Room Air Weight: 127 lb 3.307 oz Body Mass Index (BMI) 25.0 Intake & Output: Intake and Output for Last 24 Hours 02/28/25 03/01/25 03/02/25 23:59 23:59 23:59 Intake Total 698.75 / 698.75 Output Total 450 / 450 Balance 248.75 / 248.75 Lab / Micro Data 03/02/25 05:20 03/02/25 05:20 Labs: Laboratory Results - last 24 hr 03/01/25 12:15: WBC 18.8 H, RBC 4.28, Hgb 13.0, Hct 37.3, MCV 87.1, MCH 30.4, MCHC 34.9, RDW Std Deviation 40.5, RDW Coeff of Leslie 12.9, Plt Count 239, MPV 10.3, Immature Gran % (Auto) 0.600, Neut % (Auto) 92.1 H, Lymph % (Auto) 3.3 L, [place] % (Auto) 3.8, Eos % (Auto) 0.0, Baso % (Auto) 0.2, AbsoluteNeuts (auto) 17.3 H, Absolute Lymphs (auto) 0.63 L, Nucleated RBC % 0, PT 14.9, INR 1.1, APTT25.8, Sodium 140, Potassium 4.2, Chloride 104, Carbon Dioxide 25.2, Anion Gap 11, BUN 16, Creatinine 0.90,Estim Creat Clear Calc 37.62 L, Est GFR (MDRD) Non-Af 63, BUN/Creatinine Ratio 17.4, Glucose 148 H,Calcium 9.2, Vitamin D 25- Hydroxy 29.9 L, Blood Type B POSITIVE, Antibody Screen NEGATIVE 03/02/25 05:20: WBC 12.9 H, RBC 3.80 L, Hgb 11.6 L, Hct 33.7 L, MCV 88.7, MCH 30.5, MCHC 34.4, RDW Std Deviation 42.8, RDW Coeff of Leslie 13.2, Plt Count 203, MPV 9.5, Immature Gran % (Auto) 0.900, Neut % (Auto) 76.7 H, Lymph % (Auto) 11.6L, [place] % (Auto) 9.5, Eos % (Auto) 0.9, Baso % (Auto) 0.4, Absolute Neuts (auto)9.9 H, Absolute Lymphs (auto) 1.50, Nucleated RBC % 0, Sodium 140, Potassium 4.0, Chloride 103, Carbon Dioxide 27.7, Anion Gap 9, BUN 16, Creatinine 1.06, Estim Creat Clear Calc 31.45 L, Est GFR (MDRD) Non-Af 52 L, BUN/Creatinine Ratio 15.4, Glucose 109 H, Calcium 9.0, Phosphorus 4.0, Magnesium 2.2, Total Bilirubin1.32 H, AST 27, ALT 11, Alkaline Phosphatase 55, Total Protein 6.0, Albumin 3.7,Globulin 2.3, Albumin/Globulin Ratio 1.6, TSH 1.470 Radiography Diagnostic Testing: Radiology Impression Hip/Pelvis X-Ray 03/01/25 11:41 IMPRESSION: Acute intertrochanteric fracture of the left femur. Reading Location: [facility] Knee X-Ray 03/01/25 11:41 IMPRESSION: Acute fracture of the left lateral femoral condyle. Reading Location: [facility] Brain CT 03/01/25 12:42 IMPRESSION: 1. No acute intracranial finding. 2. Findings of chronic microvascular ischemic changes and age-related changes. Reading Location: [facility] Lower Extremity CT 03/01/25 12:42 IMPRESSION: No acute osseous fracture. The previously visualized osseous fragment along the distal lateral leftfemoral condyle is secondary to diffuse bone lucency and probable nutrient channel. Reading Location: [facility] Chest X-Ray 03/01/25 13:59 IMPRESSION: Emphysema/fibrosis. No acute findings. Reading Location: [facility] Physical Exam Const alert, oriented x3, no apparent distress and well nourished General Appearance: cooperative HEENT normocephalic, head/scalp atraumatic, moist oral mucous membranes and oropharynxnormal Eyes PERRL and EOMs intact bilaterally Neck no lymphadenopathy and supple Lymph Lymphatic: no lymphadenopathy noted and no lymphedema noted Resp normal respiratory effort, normal air movement and clear to auscultation bilaterally Resp Narrative: on room air. Cardio regular rate, regular rhythm, S1 normal heart sound, S2 normal heart sound and no murmurs GI normal to inspection, nondistended, normoactive bowel sounds, soft to palpation,non-tender and non-distended Extremity normal capillary refill, no clubbing, cyanosis or edema and no calf tenderness Extremity Narrative: LLE in knee brace Skin General Skin Exam: no breakdown Neuro CN's II-XII intact bilaterally, no focal motor deficits and no sensory deficits noted Motor Exam: general weakness Psych thought process normal and cooperative Appearance: appropriate Assessment & Plan Assessment/Plan (1) Acute pain of left knee: (2) Closed intertrochanteric fracture of left hip: PLAN: Plan #Left hip fracture due to mechanical fall * admitted with a complaint of mechanical fall with resultant left hip pain * imaging done showed left hip fracture- acute intertrochanteric fracture of the left femur and also showed acute fracture of the left lateral femoral condyle * CT showed a likely diffuse bone lucency. * CT of the brain showed no acute intracranial pathology and CXr showed emphysematous changes and fibrosis but on acute findings. * currently NPO * orthopedic surgery on board; for surgery later today * PT/OT On board. Fall precautions * on PO tylenol, PO oxycodone and IV morphine prn for pain * #Dementia: on donepezil #Hypothyroidism: on synthroid #Anxiety and depression: on trazodone, lexapro and clonazepam. DVT prophylaxis: lovenox COde status: DNRCCA with intubation * Charges/Coding Visit Charges Inpatient E&M: 23436 Subs Hosp L2 03/02/25 1550 Allison Tran MD Cosigner Signature (if applicable): CC: ~ Signed [facility]04-14-2025 Radiology Diagnostic study note [facility] Imaging Services [address] [place] [address] Hip Min 2 Views (Portable) MR#: [id number] Acct: [id number] Name: MICHAELA BRANDT Rep #: [id number] : 1940 F 84 From: Jose Gayle DO PCP: Dr. Dillan Santiago MD Status: ADM I N Study:Hip Min 2 Views (Portable) Date of Exam : 03/02/25 Exam# [id number] Ordering Dr: James Overton MD PROCEDURE: HIP MIN 2 VIEWS (PORTABLE) 03/02/2025 REASON FOR EXAM: POST OP TECHNIQUE: Two views of the left hip. COMPARISON: Left hip studies dated 03/01/2025 and 03/01/2025 FINDINGS: The left hip hardware appears to be intact without evidence of fracture or loosening. There is incomplete healing of the intertrochanteric fracture. Surgical fely overlie the hip. There is some soft tissue swelling and emphysematous changes seen in the soft tissues of the right hip. Again noted is arthrosis of the SI jointsand pubic symphysis.Mild bilateral hip joint arthrosis is seen. RAD/Hip Min 2 Views (Portable) IMPRESSION: The prosthetic hardware appears to be intact without evidence of fracture or loosening. Reading Location: [id number] CC: Dr. Dillan Santiago MD; Dr. Elijah Overton MD ~ Harbour Master: Signed [facility]04-14-2025 Consult note Author Joanna Delgado [facility] Note Date/Time March 02, 2025 1:0 0pm [facility] Medical Records Department [address] [place] [address] Anesthesia Postop Eval I 03/02/25 1259 MR#: [id number] Acct: [id number] Name: MICHAELA BRANDT Rep #:[id number] : 1940 84 From: Joanna Delgado CRNA PCP: Dr. Dillan Santiago MD Status:ADM I N Y Race: C Location: [place] [address] Anesthesia: Postop Eval I Current Vital Signs Temperature: 97.2 F Pulse Rate: 93 Blood Pressure: 121/73 Respiratory Rate: 16 Pulse Ox: 98 Oxygen Delivery Method: Room Air Assessment Airway patent: Yes Spontaneous unlabored respirations: Yes Mental status: Asleep nausea: No Vomiting: No Anesthesia Complication: No Fluid Hydration Crystalloid volume administer (ml): 600 Total IV fluid infused: 600 Progress Note Anesthesia document: Postop Eval 1 completed: Yes 03/02/25 1300 <Electronically signed by Joanna chowdary AQUATIC SCIENTIST> Date _ Joanna Delgado AQUATIC SCIENTIST Cosigner Signature: Date CC: ~ Signed [facility] Work Phone: 1(113) 404-208604-14-2025 Consult note Author Sae Sesay [facility] Note Date/Time March 02, 2025 11: 09am [facility] Medical Records Department [address] [place] [address] Pre-Anesthesia Evaluation 03/02/25 1109 MR#: [id number] Acct: [id number] Name: MICHAELA BRANDT Rep #:[id number] : 1940 84 From: Sae Sesay MD PCP: Dr. Dillan Santiago MD Status:ADM I N Y Race: C Location: [place] [address] -1 ASA Classification* ASA Classification ASA Classification: 2 Assessment & Plan Anesthesia* Anesthesia Assessment Anesthesia Assessment: Discussed sedation and/or anesthesia options, risks, benefits, and alternatives with patient/parents/legal guardian/POA. Questions invited. The patient/parents/legal guardian/POA seems to understand and agrees to proceedwith anesthesia plan. Reviewed the physical assessment, medical history, allergy history and patient home medications list prior to surgery/procedure/anesthetic and documented any changes. Performed airway and anesthesia risk assessments. Anesthesia Type Anesthesia Type: General Anesthesia Focused Assessment* Temperature: 97.5 F Pulse Rate: 62 Blood Pressure: 138/60 Respiratory Rate: 14 Pulse Ox: 100 Airway Assessment Mouth opens: >3 cm Mallampati Score: II Focused Labs Anesthesia Preop lab: CBC WBC 12.9 K/mm3 (4.4-11.0) H 03/02/25 05:20 5 RBC 3.80 M/mm3 (4.2-5.4) L 03/02/25 05:20 03/02/25 Hgb 11.6 g/dL (12.0-15.0) L 03/02/25 05:20 5 Hct 33.7 % (37-47) L 03/02/25 05:20 03/02/25 Plt Count 203 K/mm3 (150-450) 03/02/25 05:20 03/02/25 CHEMISTRY Potassium 4.0 mmol/L (3.3-5.1) 03/02/25 05:20 03/02/25 Sodium 140 mmol/L (133-145) 03/02/25 05:20 03/02/25 Magnesium 2.2 mg/dL (1.5-2.2) 03/02/25 05:20 03/02/25 Phosphorus 4.0 mg/dL (2.7-4.5) 03/02/25 05:20 03/02/25 BUN 16 mg/dL (4-19) 03/02/25 05:20 03/02/25 Creatinine 1.06 mg/dL (0.70-1.20) 03/02/25 05:20 03/02/25 Glucose 109 mg/dL (70-99) H 03/02/25 05:20 03/02/25 TSH 1.470 uIU/mL (0.300-4.200) 03/02/25 05:20 02/17 03/13 COAG PT 14.9 SECONDS (11.7-14.9) 03/01/25 12:15 Pre-Assessment Diagnosis/Proposed Procedure Planned Operative Procedure(s): ORIF Gamma nail left hip Anesthesia History Anesthesia History - field coordinator: Anesthesia History - field coordinator Hx Hospitalization Any Problems With Anesthesia No 03/01/25 22:27 Cholinesterase deficiency No 03/01/25 22:27 You/Your Family Experience No 03/01/25 22:27 fever (hyperthermia) with Relationship Recent Exposure to Contagious No 03/01/25 22:27 Disease Does patient have nerve No 03/01/25 22:27 stimulator Patient instructed to have device shut off --Does patient have Pacemaker No 03/01/25 22:27 or ICD? When Was Last Pacemaker Check QUESTION #4 FULL TEXT: You/Your Family Experience fever (hyperthermia) with Anesthesia Last Oral Intake Last Oral intake: Last Oral Intake NPO since 00:01 03/01/25 22:27 Meds taken in AM with sips of Yes 03/01/25 22:27 water? Meds patient instructed to levothyroxine-07:49 03/01/25 22:27 take am of surgery PONV PONV - field coordinator: PONV - field coordinator Female HX of Motion Sickness HX of N/V After Surgery Non-Smoker Duration of Surgery greater than 60 minutes Number of Risk Factors PONV Score Height & Weight Height & Weight: Anesthesia: Height & Weight Height 5 ft 03/01/25 15:09 Weight: 57.7 kg 03/02/25 06:00 Body Mass Index (BMI) 25.0 03/02/25 06:00 Respiratory Assessment Respiratory Assessment - field coordinator: Respiratory Tract Infection Hx - field coordinator Hx Respiratory Tract Infection No 03/01/25 22:27 STOP Sleep Apnea STOP Sleep Apnea - field coordinator: STOP Sleep Apnea - field coordinator Hx Hypertension No 03/02/25 09:43 Hx Sleep Apnea No 03/01/25 15:09 CPAP BIPAP Do you snore loudly (louder No 03/01/25 15:09 than talking or can be heard Do you often feel tired/ No 03/01/25 15:09 fatigued/ sleepy during daytime? Has anyone observed you stop No 03/01/25 15:09 breathing during sleep? STOP Results Negative 03/01/25 15:09 QUESTION #5 FULL TEXT : Do you snore loudly (louder than talking or can be heard through closed doors)? Tobacco Use History Tobacco Use History - field coordinator: Tobacco Use History - field coordinator Tobacco Use Smoking Status Never smoker 03/01/25 16:34 Hx Tobacco Use No 03/01/25 15:09 Years Smoking Packs Smoked per Day Smoking Cessation Date was within the last 15 years Hx Smoking Cessation Date Hx Smoking Cessation Counseling Hematologic Medial History Hematologic Hx - field coordinator: Hematologic Medical Hx - family assistant Hx of Blood Transfusion No 03/01/25 15:09 Hx of Transfusion in last 3 No 03/01/25 15:09 Months Date of Last Transfusion (if within last 3 months) Ever experience any problems No 03/01/25 15:09 with transfusion(s)? Specify any problems Hx of Preganancy in last 3 No 03/01/25 15:09 Months Nurse Filling Out Transfusion FEI 03/01/25 15:09 & Questions: Date: 03/01/25 03/01/25 15:09 Time: 15:15 03/01/25 15:09 Patient unable to answer at this time (ie. confused, unrespo /Reproduction History /Reproductive History - field coordinator: /Reproductive Hx- field coordinator Hx Now No 03/01/25 22:27 Gestational Age (in weeks): EDC: Hx Hx Para Hx Section SAB Active Medications Active Medications: Current Medications Generic Name Dose Route Start Last Admin Trade Name Freq PRN Reason Stop Dose Admin Acetaminophen 1,000 mg 03/01/25 16:00 03/02/25 05:32 Acetaminophen 500 Mg Tablet PO Not Given Q8 GRAY Albuterol Sulfate 2.5 mg 03/01/25 15:09 Albuterol 2.5 Mg/3 Ml Vial.Neb. INHALATION Q2H PRN PRN SOB &/OR WHEEZING Ascorbic Acid 500 mg 03/02/25 10:00 Ascorbic Acid 500 Mg Tablet PO DAILY GRAY Clonazepam 0.5 mg 03/01/25 15:09 Clonazepam 0.5 Mg Tablet PO TID PRN anxiety Enoxaparin Sodium 40 mg 03/02/25 20:00 Enoxaparin 40 Mg/0.4 Ml Syringe SC DAILY [facility] Escitalopram Oxalate 20 mg 03/02/25 10:00 Escitalopram Oxalate 20 Mg Tablet PO DAILY [facility] Hydralazine HCl 10 mg 03/01/25 15:09 Hydralazine 20 Mg/Ml Vial IV Q6H PRN PRN SBP> 160 Protocol Lactated Ringer's 1,000 mls @ 75 mls/hr 03/02/25 05:00 03/02/25 10:49 IV 03/02/25 18:19 0 mls/hr .[id number] GRAY Infusion Sodium Chloride 100 mls @ 15 mls/hr 03/01/25 15:09 IV .Q6H40M PRN Saline Flush Sodium Chloride 1,000 mls @ 15 mls/hr 03/02/25 10:55 IV .Q48H [facility] Levothyroxine Sodium 50 mcg 03/02/25 06:00 03/02/25 07:48 Levothyroxine 50 Mcg Tablet PO 50 mcg DAILY@0600 [facility] Administration Melatonin 3 mg 03/01/25 15:09 Melatonin 3 Mg Tablet PO QHS PRN PRN INSOMNIA Morphine Sulfate 2 - 4 mg 03/01/25 15:09 03/02/25 07:46 Morphine 2 Mg/Ml Syringe IV 2 mg Q3H PRN PRN Administration Pain Score 6-10 Nystatin 1 applic 03/01/25 22:00 03/02/25 10:29 Nystatin Powder 15gm Bottle TOPICAL Not Given BID [facility] Protocol Ondansetron HCl 4 mg 03/01/25 15:09 03/02/25 07:46 Ondansetron 4 Mg/2 Ml Vial IV 4 mg Q8H PRN PRN Administration NAUSEA/VOMITING Oxycodone HCl 5 mg 03/01/25 15:09 03/01/25 22:25 Oxycodone 5 Mg Tablet PO 5 mg Q4H PRN PRN Administration Pain Score 4-10 Senna/Docusate Sodium 2 tablet 03/01/25 22:00 03/01/25 21:11 Senna/Docusate Sodium 1 Tablet PO 2 tablet BID [facility] Administration Sodium Chloride 10 - 40 ml 03/01/25 15:09 03/02/25 07:46 0.9% Saline Lock 10 Ml Syringe IV 10 ml UD PRN Administration SALINE FLUSH Trazodone HCl 50 mg 03/01/25 22:00 03/01/25 21:12 Trazodone 50 Mg Tablet PO Not Given QHS [facility] Medical History Hypothyroidism Anxiety Dementia Self-catheterizes urinary bladder Hypertension Back pain Home Medications ?Medication ?Instructions ?Recorded ?Last Taken ?Type ascorbic acid (vitamin C) 500 mg 500 mg PO DAILY 03/0102/28/25 History tablet (C-500) clonazepam 0.5 mg tablet 0.5 mg PO TID PRN anxiety 03/01/25 History donepezil 10 mg tablet 10 mg PO DAILY 03/01/2502/17 History escitalopram oxalate 20 mg tablet 20 mg PO DAILY 03/0102/28/25 History levothyroxine 50 mcg tablet 50 mcg PO DAILY 03/01/25 0 03/01/25 History trazodone 50 mg tablet 50 mg PO QHS 03/01/25 History Allergy/AdvReac Type Severity Reaction Status Date / Time No Known Allergies Allergy Verified 03/01/25 11:27 Family History Other Hypertension Surgical History H/O: hysterectomy Status post right knee replacement Social History household members: none housing: apartment current occupational status: retired other: Daughter lives a few doors down helps her on a regular basis Smoking Status: Never smoker alcohol intake: never substance use type: does not use Review of Systems (Anesthesia) ROS Narrative System reviewed and no additional complaints, except as documented. 03/02/25 1109 <Electronically signed by Sae Sesay MD > Date _ Sae Sesay MD Cosigner Signature: Date CC: ~ Signed [facility] Work Phone: [phone] Consult note Author Elijah Overton [facility] Note Date/Time March 02, 2025 11: 05am [facility] Medical Records Department [address] [place] [address] Consultation - Orthopedics 03/02/25 1100 MR#: [id number] Acct: [id number] Name: MICHAELA BRANDT Rep #:[id number] : 1940 84 From: Elijah Laws PCP: Dr. Dillan Santiago MD Status:ADM I N [place] [facility] [id number] HPI Consult Data Date of Consult: 03/02/25 HPI Narrative Reason for Consultation: Left hip pain HPI Narrative: MICHAELA BRANDT, is a 84 F who presents with left hip pain. Patient's daughter isat bedside and is her medical power of family law attorney. Patient does have memory issues and is a poor historian. She does continue to complain of bilateral kneepain throughout the examination. Patient's daughter notes that last week she was on the phone considering assisted living. Patient gets around with a walkerat home and was previously using a cane. She fell getting out of bed yesterday morning and presented emerged part with left leg pain. Imaging was done of the knee showing no definitive fracture however there is evidence of arthritic changes. The hip has an intertrochanteric hip fracture. Patient reports 4 out of 10 pain worse with motion better with immobilization. No numbness and tingling is appreciated. They did place her in a brace because of the knee painyesterday however did not remove it when imaging was negative. Patient denies any associated numbness tingling distally. Her daughter was at bedside for the entirety of the examination and history gathering and was the primary provider of information. [facility] Medical History Hypothyroidism Anxiety Dementia Self-catheterizes urinary bladder Hypertension Back pain Home Medications ?Medication ?Instructions ?Recorded ?Last Taken ?Type ascorbic acid (vitamin C) 500 mg 500 mg PO DAILY 03/0102/28/25 History tablet (C-500) clonazepam 0.5 mg tablet 0.5 mg PO TID PRN anxiety 03/01/25 History donepezil 10 mg tablet 10 mg PO DAILY 03/01/2502/17 History escitalopram oxalate 20 mg tablet 20 mg PO DAILY 03/0102/28/25 History levothyroxine 50 mcg tablet 50 mcg PO DAILY 03/01/25 0 03/01/25 History trazodone 50 mg tablet 50 mg PO QHS 03/01/25 History Allergy/AdvReac Type Severity Reaction Status Date / Time No Known Allergies Allergy Verified 03/01/25 11:27 Family History Other Hypertension Surgical History H/O: hysterectomy Status post right knee replacement Social History household members: none housing: apartment current occupational status: retired other: Daughter lives a few doors down helps her on a regular basis Smoking Status: Never smoker alcohol intake: never substance use type: does not use ROS ROS Narrative 14 point review of systems otherwise negative except what is mentioned in the HPI Vital Signs Vital Signs Vital Signs: 03/01/25 11:25 03/01/25 11:28 03/01/25 12:26 Temperature 99 F 97.6 F L Temperature Source Oral Pulse Rate 67 67 Pulse Strength Respiratory Rate 16 22 H Respiratory Effort Normal Blood Pressure 166/77 H 165/66 H Blood Pressure Mean 106 99 Blood Pressure Source Blood Pressure Position Blood Pressure Location Pulse Ox 99 99 Oxygen Delivery Method Room Air 03/01/25 13:19 03/01/25 15:09 03/01/25 19:45 Temperature 97.9 F 98.1 F Temperature Source Oral Oral Pulse Rate 60 66 64 Pulse Strength Respiratory Rate 21 H 18 16 Respiratory Effort Blood Pressure 145/59 H 153/71 H 126/65 H Blood Pressure Mean 87 98 85 Blood Pressure Source Monitor Monitor Blood Pressure Position Semi-Fowlers Semi-Fowlers Blood Pressure Location Left Arm Left Arm Pulse Ox 98 96 99 Oxygen Delivery Method Room Air Room Air Room Air 03/02/25 03:00 03/02/25 07:25 03/02/25 07:35 Temperature 98.1 F Temperature Source Oral Pulse Rate 64 Pulse Strength Respiratory Rate 16 Respiratory Effort Blood Pressure 133/61 H Blood Pressure Mean 85 Blood Pressure Source Monitor Blood Pressure Position Semi-Fowlers Blood Pressure Location Left Arm Pulse Ox 96 99 Oxygen Delivery Method Room Air Room Air Room Air 03/02/25 07:35 03/02/25 07:36 Temperature 97.5 F L Temperature Source Oral Pulse Rate 62 Pulse Strength Normal (2+) Respiratory Rate 14 Respiratory Effort Blood Pressure 138/60 H Blood Pressure Mean 86 Blood Pressure Source Monitor Blood Pressure Position Semi-Fowlers Blood Pressure Location Left Arm Pulse Ox 100 Oxygen Delivery Method Room Air Weight Weight: 127 lb 3.307 oz Body Mass Index (BMI) 25.0 Physical Exam Const alert and no apparent distress General Appearance: cooperative HEENT normocephalic Eyes PERRL Neck no JVD Resp normal respiratory effort Cardio Cardio Narrative: Regular pulse rate lower extremity GI non-distended Extremity Extremity Narrative: Left lower extremity: Skin clean, dry, and intact. Limb is shortened and externally rotated Motor is intact dorsiflexion, EHL and plantar flexion. Sensation is intact to light touch saphenous, montez,l superficial peroneal, deep peroneal and tibial distributions. Calves are soft and supple. Skin no rashes or lesions noted Neuro moves all extremities Psych Psych Narrative: Confused Medical Records Data Attestation: I reviewed the patient's medical records Lab / Micro Data Attestation: I reviewed the patient's lab results. 03/02/25 05:20 03/02/25 05:20 Labs: Laboratory Results - last 24 hr 03/01/25 12:15: WBC 18.8 H, RBC 4.28, Hgb 13.0, Hct 37.3, MCV 87.1, MCH 30.4, MCHC 34.9, RDW Std Deviation 40.5, RDW Coeff of Leslie 12.9, Plt Count 239, MPV 10.3, Immature Gran % (Auto) 0.600, Neut % (Auto) 92.1 H, Lymph % (Auto) 3.3 L, [place] % (Auto) 3.8, Eos % (Auto) 0.0, Baso % (Auto) 0.2, Absolute Neuts (auto) 17.3 H, Absolute Lymphs (auto) 0.63 L, Nucleated RBC % 0, PT 14.9, INR 1.1, APTT25.8, Sodium 140, Potassium 4.2, Chloride 104, Carbon Dioxide 25.2, Anion Gap 11, BUN 16, Creatinine 0.90, Estim Creat Clear Calc 37.62 L, Est GFR (MDRD) Non-Af 63, BUN/Creatinine Ratio 17.4, Glucose 148 H, Calcium 9.2, Vitamin D 25-Hydroxy 29.9 L, Blood Type B POSITIVE, Antibody Screen NEGATIVE 03/02/25 05:20: WBC 12.9 H, RBC 3.80 L, Hgb 11.6 L, Hct 33.7 L, MCV 88.7, MCH 30.5, MCHC 34.4, RDW Std Deviation 42.8, RDW Coeff of Leslie 13.2, Plt Count 203, MPV 9.5, Immature Gran % (Auto) 0.900, Neut % (Auto) 76.7 H, Lymph % (Auto) 11.6L, [place] % (Auto) 9.5, Eos % (Auto) 0.9, Baso % (Auto) 0.4, Absolute Neuts (auto)9.9 H, Absolute Lymphs (auto) 1.50, Nucleated RBC % 0, Sodium 140, Potassium 4.0, Chloride 103, Carbon Dioxide 27.7, Anion Gap 9, BUN 16, Creatinine 1.06, Estim Creat Clear Calc 31.45 L, Est GFR (MDRD) Non-Af 52 L, BUN/Creatinine Ratio 15.4, Glucose 109 H, Calcium 9.0, Phosphorus 4.0, Magnesium 2.2, Total Bilirubin1.32 H, AST 27, ALT 11, Alkaline Phosphatase 55, Total Protein 6.0, Albumin 3.7,Globulin 2.3, Albumin/Globulin Ratio 1.6, TSH 1.470 Imaging Radiology Impression Hip/Pelvis X-Ray 03/01/25 11:41 IMPRESSION: Acute intertrochanteric fracture of the left femur. Reading Location: [facility] Knee X-Ray 03/01/25 11:41 IMPRESSION: Acute fracture of the left lateral femoral condyle. Reading Location: [facility] Brain CT 03/01/25 12:42 IMPRESSION: 1. No acute intracranial finding. 2. Findings of chronic microvascular ischemic changes and age-related changes. Reading Location: [facility] Lower Extremity CT 03/01/25 12:42 IMPRESSION: No acute osseous fracture. The previously visualized osseous fragment along the distal lateral left femoral condyle is secondary to diffuse bone lucency and probable nutrient channel. Reading Location: [facility] Chest X-Ray 03/01/25 13:59 IMPRESSION: Emphysema/fibrosis. No acute findings. Reading Location: [facility] Assessment & Plan Assessment/Plan (1) Closed intertrochanteric fracture of left hip: PLAN: Natural history of the disease process was discussed with patient and her family member at bedside. Potential treatment options were discussed and cephalomedullary nail was recommended as appropriate treatment plan. Risk and benefits of the procedure were discussed the patient and her medical power of family law attorney occluding but not limited to blood loss, DVTs, PEs, nervous damage, general risk of anesthesia loss life. We also discussed nonunion, malunion hardware failures and hardware cut out. Ultimately, at this point operative intervention risks are outweighed by the benefits and this was recommended. Antibiotics were called the operating room. Patient is currently NPO. Patient is cleared by medicine at this time. Will proceed with surgery this afternoon. (2) Acute pain of left knee: PLAN: Patient is evidence of osteoarthritis of the left knee. At this time we will treat her symptomatically. She appears to have chronic complaints of knee pain. Focus of treatment will be on the hip. Discontinue the brace after surgery. 03/02/25 1105 <Electronically signed by Elijah Overton MD> Cosigner Signature (if applicable): CC: Dr. Dillan Santiago MD~ Signed [facility] Work Phone: [phone]) [phone] Consult note [facility] Medical Records Department [address] [place] [address] Anesthesia Postop Eval I 03/02/25 1259 MR#: [id number] Acct: [id number] Name: MICHAELA BRANDT Rep #:[id number] : 1940 84 From: Joanna Delgado AQUATIC SCIENTIST PCP: Dr. Dillan Santiago MD Status:ADM I N Y Race: C Location: [place] [address] Anesthesia: Postop Eval I Current Vital Signs Temperature: 97.2 F Pulse Rate: 93 Blood Pressure: 121/73 Respiratory Rate: 16 Pulse Ox: 98 Oxygen Delivery Method: Room Air Assessment Airway patent: Yes Spontaneous unlabored respirations: Yes Mental status: Asleep nausea: No Vomiting: No Anesthesia Complication: No Fluid Hydration Crystalloid volume administer (ml): 600 Total IV fluid infused: 600 Progress Note Anesthesia document: Postop Eval 1 completed: Yes 03/02/[address] AQUATIC SCIENTIST> Date _ Joanna Delgado AQUATIC SCIENTIST Cosigner Signature: Date CC: ~ Signed [facility]04-14-2025 Procedure note [facility] Medical Records Department [facility] [place] [address] Operative Report 03/02/25 1100 MR#: [id number] Acct: [id number] Name: MICHAELA BRANDT Rep #:[id number] : 1940 84 From: Elijah Laws PCP: Dr. Dillan Santiago MD Status:ADM I N Location: [place] [address] Operative Report (Standard) Operative Information Date of Procedure: 03/02/25 Pre-Operative Diagnosis: Left intertrochanteric hip fracture Post-Operative Diagnosis: Left intertrochanteric hip fracture Surgery/Procedure Performed: Left hip cephalomedullary nail etl application developer: No Type of Anesthesia: General RN Documented Start/Stop Times: Operation Date: 03/02/25 13:15 Case Time Into Pre-Op 03/02/25 10:50 Anesthesia Start 03/02/25 11:50 Into Room 03/02/25 11:50 Procedure Start 03/02/25 12:16 Procedure End 03/02/25 12:41 Procedure Start Time: 12:16 Procedure Stop Time: 12:41 Select all DRAINS/GRAFTS/IMPLANTS that apply: Implanted device Implanted device details: Zhane gamma nail 3, 11 mm x 180 mm, 125 degree neck angle. 85 mm lagscrew Special Medications: 2 g Ancef Estimated Blood Loss: 300 mL Fluids Replaced: 600 mL crystalloid Specimen collected: No Description of surgery: Brief history operative indications: 84-year-old female who fell in her home yesterday sustained a left intertrochanteric hip fracture after extensive discussion including risk and benefits which include but are not limited to blood loss, PEs, DVTs, neurovascular damage, nonunions, malunions and screw cut out patient has electedto proceed with a left hip cephalo-medullary nail. Procedure: On the date of the procedure the patient's L hip was marked in the preoperative area and patient was taken back to the operating room. Anesthetic was administered and patient was transferred to the table were all bony prominence identified well-padded and the ipsilateral arm was placed across the chest. Patient was then translated down to the perineal post and the operative leg was placed in the boot while the nonoperative leg was lowered and secured. The operative leg was placed in traction and internal rotation and live fluoroscopy was used to verify adequate reduction. The operative leg was then prepped in a sterile fashion with chlorhexidine while the surgeon scrubbed. Upon reentering the room the operative extremity was draped in the standard orthopedic fashion. Skin incision was marked and a timeout was called. Everyone agreed upon the side, the site, the procedure be performed, patient's identity, and antibiotics given. Skin incision was made and the position of theentry guidepin was verified using live fluoroscopy. Once we were satisfied withour position the pin was advanced in the soft tissue protector was placed over the pin. The entry reamer was then advanced into the proximal portion of the femur. A guidewire was placed down the intramedullary [place] fluoroscopy wasused to verify that the anterior cortex had not been breached distally as well as satisfactory distal positioning. We then used live fluoroscopy to verify theplacement of the nail and a Zhane short gamma 3 by 11 mm 125 degree hip nail was selected. The 12.5 mm reamer was then passed. The nail was then attached to the preform plate maker and inserted into the intramedullary canal. The appropriate depth was verified and the skin incision for the lag screw was made. The lag screw guidepin was then placed under live fluoroscopy and when a satisfactory position was obtained the length of the screw was measured and the standard technique to drill for the lag screws was performed. The anti-rotation bar was used. At this time a 85 mm lag screw was selected with its corresponding compression screw. The lag screw was then passed and traction was left off the leg. The compression screw was then passed and the fracture was compressed. The final position of the lag screw was verified underfluoroscopy. Based on the fracture pattern and distal fit of the nail it was determined that no distal lag screwwas to be used. Live fluoroscopy was used to verify the position of the interlocking screw and the final position of the hip components. Once we were satisfied with our positioning the wounds were copiously irrigated out with normal saline skin was closed with 2-0 Vicryl and fely for final skin closure. A sterile dressing was placed with Xeroform. Patient was then awakened by anesthesia transferred from the fracture table backto their hospital bed and transferred to the PACU for recovery. Postoperative plan: Patient will be weight-bear as tolerated. Agree with initial DVT prophylaxis inhouse to be enoxaparin, recommend aspirin 81 mg twice a day for DVT prophylaxis with thigh-high stockings upon discharge. Follow up in the office in 2 weeks. Surgical Findings: Stable reduced hip Complications Complications: No Admit VTE Documentation VTE Present on Admission: No VTE Mechan Device Prophylaxis: SCD's and Thigh High MEJIA Hose VTE Pharm Prophylaxis ordered?: Yes 03/02/25 6587 Cosigner Signature (if applicable): CC: Dr. Dillan Santiago MD; Dr. Roro Long DO; Dr. Boston Rosas DO; Dr. Elijah Overton MD~ Signed [facility]04-14-2025 Radiology Diagnostic study note [facility] Imaging Services [address] [place] [address] Hip Min 2 Views (Portable) MR#: [id number] Acct: [id number] Name: MICHAELA BRANDT Rep #: [id number] : 1940 F 84 From: Tanner Beth MD PCP: Dr. Dillan Santiago MD Status: ADM I N Study:Hip Min 2 Views (Portable) Date of Exam : 03/02/25 Exam# [id number] Ordering Dr: James Overton MD PROCEDURE: Intraoperative fluoroscopic services for ORIF of the left intertrochanteric fracture. 03/02/2025 REASON FOR EXAM: ORIF, GAMMA TECHNIQUE: Intraoperative fluoroscopic services provided. 66.9 seconds of fluoroscopy. 11.2 mGy. 8 spot films were obtained. COMPARISON: Prior study dated March 01, 2025. FINDINGS: Intraoperative fluoroscopic services provided for open reduction and internal fixation of the left intertrochanteric fracture using gamma nail and femoral stem. RAD/Hip Min 2 Views (Portable) IMPRESSION: Satisfactory ORIF of the left intertrochanteric fracture. Reading Location: [place] [address] CC: Dr. Dillan Santiago MD; Dr. Elijah Overton MD ~ Harbour Master: Signed [facility]04-14-2025 Consult note [facility] Medical Records Department [address] [place] [address] Pre-Anesthesia Evaluation 03/02/25 1109 MR#: [id number] Acct: [id number] Name: MICHAELA BRANDT Rep #:[id number] : 1940 84 From: Sae Sesay MD PCP: Dr. Dillan Santiago MD Status:ADM I N Y Race: C [place] [facility] [id number] ASA Classification* ASA Classification ASA Classification: 2 Assessment & Plan Anesthesia* Anesthesia Assessment Anesthesia Assessment: Discussed sedation and/or anesthesia options, risks, benefits, and alternatives with patient/parents/legal guardian/POA. Questions invited. The patient/parents/legal guardian/POA seems to understand and agrees to proceedwith anesthesia plan. Reviewed the physical assessment, medical history, allergy history and patient home medications list prior to surgery/procedure/anesthetic and documented any changes. Performed airway and anesthesia risk assessments. Anesthesia Type Anesthesia Type: General Anesthesia Focused Assessment* Temperature: 97.5 F Pulse Rate: 62 Blood Pressure: 138/60 Respiratory Rate: 14 Pulse Ox: 100 Airway Assessment Mouth opens: >3 cm Mallampati Score: II Focused Labs Anesthesia Preop lab: CBC WBC 12.9 K/mm3 (4.4-11.0) H 03/02/25 05:20 5 RBC 3.80 M/mm3 (4.2-5.4) L 03/02/25 05:20 03/02/25 Hgb 11.6 g/dL (12.0-15.0) L 03/02/25 05:20 5 Hct 33.7 % (37-47) L 03/02/25 05:20 03/02/25 Plt Count 203 K/mm3 (150-450) 03/02/25 05:20 03/02/25 CHEMISTRY Potassium 4.0 mmol/L (3.3-5.1) 03/02/25 05:20 03/02/25 Sodium 140 mmol/L (133-145) 03/02/25 05:20 03/02/25 Magnesium 2.2 mg/dL (1.5-2.2) 03/02/25 05:20 03/02/25 Phosphorus 4.0 mg/dL (2.7-4.5) 03/02/25 05:20 03/02/25 BUN 16 mg/dL (4-19) 03/02/25 05:20 03/02/25 Creatinine 1.06 mg/dL (0.70-1.20) 03/02/25 05:20 03/02/25 Glucose 109 mg/dL (70-99) H 03/02/25 05:20 03/02/25 TSH 1.470 uIU/mL (0.300-4.200) 03/02/25 05:20 02/17 03/13 COAG PT 14.9 SECONDS (11.7-14.9) 03/01/25 12:15 Pre-Assessment Diagnosis/Proposed Procedure Planned Operative Procedure(s): ORIF Gamma nail left hip Anesthesia History Anesthesia History - field coordinator: Anesthesia History - field coordinator Hx Hospitalization Any Problems With Anesthesia No 03/01/25 22:27 Cholinesterase deficiency No 03/01/25 22:27 You/Your Family Experience No 03/01/25 22:27 fever (hyperthermia) with Relationship Recent Exposure to Contagious No 03/01/25 22:27 Disease Does patient have nerve No 03/01/25 22:27 stimulator Patient instructed to have device shut off --Does patient have Pacemaker No 03/01/25 22:27 or ICD? When Was Last Pacemaker Check QUESTION #4 FULL TEXT: You/Your Family Experience fever (hyperthermia) with Anesthesia Last Oral Intake Last Oral intake: Last Oral Intake NPO since 00:01 03/01/25 22:27 Meds taken in AM with sips of Yes 03/01/25 22:27 water? Meds patient instructed to levothyroxine-07:49 03/01/25 22:27 take am of surgery PONV PONV - field coordinator: PONV - field coordinator Female HX of Motion Sickness HX of N/V After Surgery Non-Smoker Duration of Surgery greater than 60 minutes Number of Risk Factors PONV Score Height & Weight Height & Weight: Anesthesia: Height & Weight Height 5 ft 03/01/25 15:09 Weight: 57.7 kg 03/02/25 06:00 Body Mass Index (BMI) 25.0 03/02/25 06:00 Respiratory Assessment Respiratory Assessment - field coordinator: Respiratory Tract Infection Hx - field coordinator Hx Respiratory Tract Infection No 03/01/25 22:27 STOP Sleep Apnea STOP Sleep Apnea - field coordinator: STOP Sleep Apnea - field coordinator Hx Hypertension No 03/02/25 09:43 Hx Sleep Apnea No 03/01/25 15:09 CPAP BIPAP Do you snore loudly (louder No 03/01/25 15:09 than talking or can be heard Do you often feel tired/ No 03/01/25 15:09 fatigued/ sleepy during daytime? Has anyone observed you stop No 03/01/25 15:09 breathing during sleep? STOP Results Negative 03/01/25 15:09 QUESTION #5 FULL TEXT : Do you snore loudly (louder than talking or can be heard through closeddoors)? Tobacco Use History Tobacco Use History - field coordinator: Tobacco Use History - field coordinator Tobacco Use Smoking Status Never smoker 03/01/25 16:34 Hx Tobacco Use No 03/01/25 15:09 Years Smoking Packs Smoked per Day Smoking Cessation Date was within the last 15 years Hx Smoking Cessation Date Hx Smoking Cessation Counseling Hematologic Medial History Hematologic Hx - field coordinator: Hematologic Medical Hx - family assistant Hx of Blood Transfusion No 03/01/25 15:09 Hx of Transfusion in last 3 No 03/01/25 15:09 Months Date of Last Transfusion (if within last 3 months) Ever experience any problems No 03/01/25 15:09 with transfusion(s)? Specify any problems Hx of Preganancy in last 3 No 03/01/25 15:09 Months Nurse Filling Out Transfusion FIE 03/01/25 15:09 & Questions: Date: 03/01/25 03/01/25 15:09 Time: 15:15 03/01/25 15:09 Patient unable to answer at this time (ie. confused, unrespo /Reproduction History /Reproductive History - field coordinator: /Reproductive Hx- field coordinator Hx Now No 03/01/25 22:27 Gestational Age (in weeks): EDC: Hx Hx Para Hx Section SAB Active Medications Active Medications: Current Medications Generic Name Dose Route Start Last Admin Trade Name Freq PRN Reason Stop Dose Admin Acetaminophen 1,000 mg 03/01/25 16:00 03/02/25 05:32 Acetaminophen 500 Mg Tablet PO Not Given Q8 GRAY Albuterol Sulfate 2.5 mg 03/01/25 15:09 Albuterol 2.5 Mg/3 Ml Vial.Neb. INHALATION Q2H PRN PRN SOB &/OR WHEEZING Ascorbic Acid 500 mg 03/02/25 10:00 Ascorbic Acid 500 Mg Tablet PO DAILY GRAY Clonazepam 0.5 mg 03/01/25 15:09 Clonazepam 0.5 Mg Tablet PO TID PRN anxiety Enoxaparin Sodium 40 mg 03/02/25 20:00 Enoxaparin 40 Mg/0.4 Ml Syringe SC DAILY GRAY Escitalopram Oxalate 20 mg 03/02/25 10:00 Escitalopram Oxalate 20 Mg Tablet PO DAILY GRAY Hydralazine HCl 10 mg 03/01/25 15:09 Hydralazine 20 Mg/Ml Vial IV Q6H PRN PRN SBP> 160 Protocol Lactated Ringer's 1,000 mls @ 75 mls/hr 03/02/25 05:00 03/02/25 10:49 IV 03/02/25 18:19 0 mls/hr .[id number] GRAY Infusion Sodium Chloride 100 mls @ 15 mls/hr 03/01/25 15:09 IV .Q6H40M PRN Saline Flush Sodium Chloride 1,000 mls @ 15 mls/hr 03/02/25 10:55 IV .Q48H GRAY Levothyroxine Sodium 50 mcg 03/02/25 06:00 03/02/25 07:48 Levothyroxine 50 Mcg Tablet PO 50 mcg DAILY@0600 GRAY Administration Melatonin 3 mg 03/01/25 15:09 Melatonin 3 Mg Tablet PO QHS PRN PRN INSOMNIA Morphine Sulfate 2 - 4 mg 03/01/25 15:09 03/02/25 07:46 Morphine 2 Mg/Ml Syringe IV 2 mg Q3H PRN PRN Administration Pain Score 6-10 Nystatin 1 applic 03/01/25 22:00 03/02/25 10:29 Nystatin Powder 15gm Bottle TOPICAL Not Given BID [facility] Protocol Ondansetron HCl 4 mg 03/01/25 15:09 03/02/25 07:46 Ondansetron 4 Mg/2 Ml Vial IV 4 mg Q8H PRN PRN Administration NAUSEA/VOMITING Oxycodone HCl 5 mg 03/01/25 15:09 03/01/25 22:25 Oxycodone 5 Mg Tablet PO 5 mg Q4H PRN PRN Administration Pain Score 4-10 Senna/Docusate Sodium 2 tablet 03/01/25 22:00 03/01/25 21:11 Senna/Docusate Sodium 1 Tablet PO 2 tablet BID GRAY Administration Sodium Chloride 10 - 40 ml 03/01/25 15:09 03/02/25 07:46 0.9% Saline Lock 10 Ml Syringe IV 10 ml UD PRN Administration SALINE FLUSH Trazodone HCl 50 mg 03/01/25 22:00 03/01/25 21:12 Trazodone 50 Mg Tablet PO Not Given QHS GRAY PFSH Medical History Hypothyroidism Anxiety Dementia Self-catheterizes urinary bladder Hypertension Back pain Home Medications ?Medication ?Instructions ?Recorded ?Last Taken ?Type ascorbic acid (vitamin C) 500 mg 500 mg PO DAILY 03/0102/28/25 History tablet (C-500) clonazepam 0.5 mg tablet 0.5 mg PO TID PRN anxiety 03/01/25 History donepezil 10 mg tablet 10 mg PO DAILY 03/01/2502/17 History escitalopram oxalate 20 mg tablet 20 mg PO DAILY 03/0102/28/25 History levothyroxine 50 mcg tablet 50 mcg PO DAILY 03/01/25 0 03/01/25 History trazodone 50 mg tablet 50 mg PO QHS 03/01/25 History Allergy/AdvReac Type Severity Reaction Status Date / Time No Known Allergies Allergy Verified 03/01/25 11:27 Family History Other Hypertension Surgical History H/O: hysterectomy Status post right knee replacement Social History household members: none housing: apartment current occupational status: retired other: Daughter lives a few doors down helps her on a regular basis Smoking Status: Never smoker alcohol intake: never substance use type: does not use Review of Systems (Anesthesia) ROS Narrative System reviewed and no additional complaints, except as documented. 03/02/25 1109 > Date _ Sae Sesay MD Cosigner Signature: Date CC: ~ Signed [facility]04-14-2025 Consult note [facility] Medical Records Department [address] [place] [address] Consultation - Orthopedics 03/02/25 1100 MR#: [id number] Acct: [id number] Name: MICHAELA BRANDT Rep #:[id number] : 1940 84 From: Elijah Laws PCP: Dr. Dillan Santiago MD Status:ADM I N Location: MS3 OQ057-2 HPI Consult Data Date of Consult: 03/02/25 HPI Narrative Reason for Consultation: Left hip pain HPI Narrative: MICHAELA BRANDT, is a 84 F who presents with left hip pain. Patient's daughter isat bedside and is her medical power of family law attorney. Patient does have memory issues and is a poor historian. She does continue to complain of bilateral kneepain throughout the examination. Patient's daughter notes that lastweek she was on the phone considering assisted living. Patient gets around with a walkerat home andwas previously using a cane. She fell getting out of bed yesterday morning and presented emerged part with left leg pain. Imaging was done of the knee showing no definitive fracture however there is evidence of arthritic changes. The hip has an intertrochanteric hip fracture. Patient reports 4 out of 10 pain worse with motion better with immobilization. No numbness and tingling is appreciated. They did place her in a brace because of the knee painyesterday however did not remove it when imagingwas negative. Patient denies any associated numbness tingling distally. Her daughter was at bedsidefor the entirety of the examination and history gathering and was the primary provider of information. [facility] Medical History Hypothyroidism Anxiety Dementia Self-catheterizes urinary bladder Hypertension Back pain Home Medications ?Medication ?Instructions ?Recorded ?Last Taken ?Type ascorbic acid (vitamin C) 500 mg 500 mg PO DAILY 03/0102/28/25 History tablet (C-500) clonazepam 0.5 mg tablet 0.5 mg PO TID PRN anxiety 03/01/25 History donepezil 10 mg tablet 10 mg PO DAILY 03/01/2502/17 History escitalopram oxalate 20 mg tablet 20 mg PO DAILY 03/0102/28/25 History levothyroxine 50 mcg tablet 50 mcg PO DAILY 03/01/25 0 4/13/25 History trazodone 50 mg tablet 50 mg PO QHS 03/01/25 History Allergy/AdvReac Type Severity Reaction Status Date / Time No Known Allergies Allergy Verified 03/01/25 11:27 Family History Other Hypertension Surgical History H/O: hysterectomy Status post right knee replacement Social History household members: none housing: apartment current occupational status: retired other: Daughter lives a few doors down helps her on a regular basis Smoking Status: Never smoker alcohol intake: never substance use type: does not use ROS ROS Narrative 14 point review of systems otherwise negative except what is mentioned in the HPI Vital Signs Vital Signs Vital Signs: 03/01/25 11:25 03/01/25 11:28 03/01/25 12:26 Temperature 99 F 97.6 F L Temperature Source Oral Pulse Rate 67 67 Pulse Strength Respiratory Rate 16 22 H Respiratory Effort Normal Blood Pressure 166/77 H 165/66 H Blood Pressure Mean 106 99 Blood Pressure Source Blood Pressure Position Blood Pressure Location Pulse Ox 99 99 Oxygen Delivery Method Room Air 03/01/25 13:19 03/01/25 15:09 03/01/25 19:45 Temperature 97.9 F 98.1 F Temperature Source Oral Oral Pulse Rate 60 66 64 Pulse Strength Respiratory Rate 21 H 18 16 Respiratory Effort Blood Pressure 145/59 H 153/71 H 126/65 H Blood Pressure Mean 87 98 85 Blood Pressure Source Monitor Monitor Blood Pressure Position Semi-Fowlers Semi-Fowlers Blood Pressure Location Left Arm Left Arm Pulse Ox 98 96 99 Oxygen Delivery Method Room Air Room Air Room Air 03/02/25 03:00 03/02/25 07:25 03/02/25 07:35 Temperature 98.1 F Temperature Source Oral Pulse Rate 64 Pulse Strength Respiratory Rate 16 Respiratory Effort Blood Pressure 133/61 H Blood Pressure Mean 85 Blood Pressure Source Monitor Blood Pressure Position Semi-Fowlers Blood Pressure Location Left Arm Pulse Ox 96 99 Oxygen Delivery Method Room Air Room Air Room Air 03/02/25 07:35 03/02/25 07:36 Temperature 97.5 F L Temperature Source Oral Pulse Rate 62 Pulse Strength Normal (2+) Respiratory Rate 14 Respiratory Effort Blood Pressure 138/60 H Blood Pressure Mean 86 Blood Pressure Source Monitor Blood Pressure Position Semi-Fowlers Blood Pressure Location Left Arm Pulse Ox 100 Oxygen Delivery Method Room Air Weight Weight: 127 lb 3.307 oz Body Mass Index (BMI) 25.0 Physical Exam Const alert and no apparent distress General Appearance: cooperative HEENT normocephalic Eyes PERRL Neck no JVD Resp normal respiratory effort Cardio Cardio Narrative: Regular pulse rate lower extremity GI non-distended Extremity Extremity Narrative: Left lower extremity: Skin clean, dry, and intact. Limb is shortened and externally rotated Motor is intact dorsiflexion, EHL and plantar flexion. Sensation is intact to light touch saphenous, montez,l superficial peroneal, deep peroneal and tibialdistributions. Calves are soft and supple. Skin no rashes or lesions noted Neuro moves all extremities Psych Psych Narrative: Confused Medical Records Data Attestation: I reviewed the patient's medical records Lab / Micro Data Attestation: I reviewed the patient's lab results. 03/02/25 05:20 03/02/25 05:20 Labs: Laboratory Results - last 24 hr 03/01/25 12:15: WBC 18.8 H, RBC 4.28, Hgb 13.0, Hct 37.3, MCV 87.1, MCH 30.4, MCHC 34.9, RDW Std Deviation 40.5, RDW Coeff of Leslie 12.9, Plt Count 239, MPV 10.3, Immature Gran % (Auto) 0.600, Neut % (Auto) 92.1 H, Lymph % (Auto) 3.3 L, [place] % (Auto) 3.8, Eos % (Auto) 0.0, Baso % (Auto) 0.2, AbsoluteNeuts (auto) 17.3 H, Absolute Lymphs (auto) 0.63 L, Nucleated RBC % 0, PT 14.9, INR 1.1, APTT25.8, Sodium 140, Potassium 4.2, Chloride 104, Carbon Dioxide 25.2, Anion Gap 11, BUN 16, Creatinine 0.90,Estim Creat Clear Calc 37.62 L, Est GFR (MDRD) Non-Af 63, BUN/Creatinine Ratio 17.4, Glucose 148 H,Calcium 9.2, Vitamin D 25- Hydroxy 29.9 L, Blood Type B POSITIVE, Antibody Screen NEGATIVE 03/02/25 05:20: WBC 12.9 H, RBC 3.80 L, Hgb 11.6 L, Hct 33.7 L, MCV 88.7, MCH 30.5, MCHC 34.4, RDW Std Deviation 42.8, RDW Coeff of Leslie 13.2, Plt Count 203, MPV 9.5, Immature Gran % (Auto) 0.900, Neut % (Auto) 76.7 H, Lymph % (Auto) 11.6L, [place] % (Auto) 9.5, Eos % (Auto) 0.9, Baso % (Auto) 0.4, Absolute Neuts (auto)9.9 H, Absolute Lymphs (auto) 1.50, Nucleated RBC % 0, Sodium 140, Potassium 4.0, Chloride 103, Carbon Dioxide 27.7, Anion Gap 9, BUN 16, Creatinine 1.06, Estim Creat Clear Calc 31.45 L, Est GFR (MDRD) Non-Af 52 L, BUN/Creatinine Ratio 15.4, Glucose 109 H, Calcium 9.0, Phosphorus 4.0, Magnesium 2.2, Total Bilirubin1.32 H, AST 27, ALT 11, Alkaline Phosphatase 55, Total Protein 6.0, Albumin 3.7,Globulin 2.3, Albumin/Globulin Ratio 1.6, TSH 1.470 Imaging Radiology Impression Hip/Pelvis X-Ray 03/01/25 11:41 IMPRESSION: Acute intertrochanteric fracture of the left femur. Reading Location: [facility] Knee X-Ray 03/01/25 11:41 IMPRESSION: Acute fracture of the left lateral femoral condyle. Reading Location: [facility] Brain CT 03/01/25 12:42 IMPRESSION: 1. No acute intracranial finding. 2. Findings of chronic microvascular ischemic changes and age-related changes. Reading Location: [facility] Lower Extremity CT 03/01/25 12:42 IMPRESSION: No acute osseous fracture. The previously visualized osseous fragment along the distal lateral leftfemoral condyle is secondary to diffuse bone lucency and probable nutrient channel. Reading Location: [facility] Chest X-Ray 03/01/25 13:59 IMPRESSION: Emphysema/fibrosis. No acute findings. Reading Location: [facility] Assessment & Plan Assessment/Plan (1) Closed intertrochanteric fracture of left hip: PLAN: Natural history of the disease process was discussed with patient and her family member at bedside. Potential treatment options were discussed and cephalomedullary nail was recommended as appropriate treatment plan. Risk and benefits of the procedure were discussed the patient and her medicalpower of family law attorney occluding but not limited to blood loss, DVTs, PEs, nervous damage, general risk of anesthesia loss life. We also discussed nonunion, malunion hardware failures and hardware cut out. Ultimately, at this point operative intervention risks are outweighed by the benefits and this wasrecommended. Antibiotics were called the operating room. Patient is currently NPO. Patient is cleared by medicine at this time. Will proceed with surgery this afternoon. (2) Acute pain of left knee: PLAN: Patient is evidence of osteoarthritis of the left knee. At this time we will treat her symptomatically. She appears to have chronic complaints of knee pain. Focus of treatment will be on the hip. Discontinue the brace after surgery. 03/02/25 1105 Cosigner Signature (if applicable): CC: Dr. Dillan Santiago MD~ Signed [facility]04-14-2025 Discharge summary Author Guerrero Valerio [facility] Note Date/Time March 01, 2025 10: 59pm [facility] Medical Records Department [address] [place] [address] Emergency Department Summary 03/01/25 MR#: [id number] Acct: [id number] Name: MICHAELA BRANDT Rep #:[id number] : 1940 84 From: Guerrero Sommer PCP: Dr. Dillan Santiago MD Status:ADM I N Location: [place] [address] HPI HPI - Fall History of Present Illness Chief Complaint: Fall Informant: patient and EMS Narrative Narrative: 84-year-old female presenting to the emergency room with left knee injury. Patient states she was sitting on the side of the bed when she fell off injuringthe left knee. She notes prior right knee surgery. She does not know if they replaced it or not. That was apparently in 2014 in [facility]. Patient reportedly just moved to the area. She denies any other injuries. She states that she cannot really move the knee. Patient is very tearful upset about bothering her children and over her late . There is a report of the degree of dementia that is reported to me. [facility] Medical History (Updated 03/01/25 @ 13:[address] Roro Long, DO) Hypothyroidism Anxiety Dementia Self-catheterizes urinary bladder Hypertension Back pain Home Medications ?Medication ?Instructions ?Recorded ?Last Taken ?Type ascorbic acid (vitamin C) 500 mg 500 mg PO DAILY 03/0102/28/25 History tablet (C-500) clonazepam 0.5 mg tablet 0.5 mg PO TID PRN anxiety 03/01/25 History donepezil 10 mg tablet 10 mg PO DAILY 03/01/2502/17 History escitalopram oxalate 20 mg tablet 20 mg PO DAILY 03/0102/28/25 History levothyroxine 50 mcg tablet 50 mcg PO DAILY 03/01/25 0 03/01/25 History trazodone 50 mg tablet 50 mg PO QHS 03/01/25 History Allergy/AdvReac Type Severity Reaction Status Date / Time No Known Allergies Allergy Verified 03/01/25 11:27 Social History Smoking Status: Unknown if ever smoked ROS ROS ED Constitutional Constitutional ED: Denies chills or weight loss Eyes Eyes: Denies change in vision or diplopia ENT ENT ED: Denies ear pain, rhinorrhea or sore throat Cardiovascular Cardiovascular: Denies chest pain, orthopnea, palpitations or racing heartbeat Respiratory/Chest Respiratory/Chest: Denies cough, dyspnea or orthopnea Gastrointestinal Gastrointestinal: Denies abdominal pain, diarrhea, nausea or vomiting Genitourinary Genitourinary ED: Denies dysuria, hematuria or urinary frequency Musculoskeletal Musculoskeletal: Reports other Details: Left knee pain ; Denies arthralgias, back pain, myalgias or neck pain Integumentary Denies abscess or rash Neurologic Neurologic: Denies headache(s), paresthesias or weakness Psychiatric Psychiatric: Denies anxiety, depression, suicidal ideation or suicidal thoughts Endocrine Endocrinology: Denies polydipsia, polyphagia or polyuria Allergic/Immunologic Allergic/Immunologic ED: Denies mouth swelling, tongue swelling or urticaria EXAM Physical Exam Const Vital Signs: 03/01/25 11:25 03/01/25 11:28 03/01/25 12:26 Temperature 99 F 97.6 F L Temperature Source Oral Pulse Rate 67 67 Respiratory Rate 16 22 H Respiratory Effort Normal Blood Pressure 166/77 H 165/66 H Blood Pressure Mean 106 99 Pulse Ox 99 99 Oxygen Delivery Method Room Air 03/01/25 13:19 Temperature Temperature Source Pulse Rate 60 Respiratory Rate 21 H Respiratory Effort Blood Pressure 145/59 H Blood Pressure Mean 87 Pulse Ox 98 Oxygen Delivery Method Room Air Positive well nourished and well developed General Appearance ED: well developed HEENT Reports normocephalic, head/scalp atraumatic and moist mucous membranes Eyes PERRL and EOMs intact bilaterally Neck no lymphadenopathy, supple and no JVD Resp normal respiratory effort and clear to auscultation bilaterally Cardio regular rate, regular rhythm and no murmurs GI normal to inspection, nondistended, normoactive bowel sounds and non-tender Palpation: soft Back/Spine no CVA tenderness and normal ROM Extremity Extremity Narrative: The left leg appears shortened compared to the right. She has pain with logrollin the left inguinal region. I do not appreciate any significant knee swelling. Patient guards the knee. She will not lift the leg up off the bed. I do not appreciate contusion ecchymosis or abrasions. She is able to contract the quadriceps. General Extremety ED: Negative for edema General Extremity: Negative for edema Neuro oriented x3 and CN's II-XII intact bilaterally Sensorium / Orientation: alert Motor Exam: strength 5/5 throughout Psych Mood & Affect: depressed and tearful Skin no rashes or lesions noted and no wounds MDM MDM MDM Narrative Medical decision making narrative: Differential diagnosis includes but not limited to hip fracture pelvic fracture knee fracture femur fracture contusion sprain strain My independent interpretation of plain films of the left hip and pelvis is acuteintertrochanteric hip fracture. My independent interpretation of the plain films of the left knee is possible lateral femoral condyle fracture. May have been interpretation of the chest x-ray is no acute process. Case was discussed with on-call orthopedics. CT of the knee will be obtained. CT of the brain will also be obtained. These were read by radiology reviewed bymyself. She will be placed in a knee immobilizer at request of orthopedics. She has received pain and nausea medication. Medication list will be updated. She is not on any blood thinners. She plan of care will be admission to the hospital for surgery. History & Record Review Discussion w/independent historian: EMS personnel, Patient and Family Lab Data Attestation: I reviewed the patient's lab results. Labs: Laboratory Results - last 24 hr 03/01/25 12:15 WBC 18.8 H RBC 4.28 Hgb 13.0 Hct 37.3 MCV 87.1 MCH 30.4 MCHC 34.9 RDW Std Deviation 40.5 RDW Coeff of Leslie 12.9 Plt Count 239 MPV 10.3 Immature Gran % (Auto) 0.600 Neut % (Auto) 92.1 H Lymph % (Auto) 3.3 L [place] % (Auto) 3.8 Eos % (Auto) 0.0 Baso % (Auto) 0.2 Absolute Neuts (auto) 17.3 H Absolute Lymphs (auto) 0.63 L Nucleated RBC % 0 PT 14.9 INR 1.1 APTT 25.8 Sodium 140 Potassium 4.2 Chloride 104 Carbon Dioxide 25.2 Anion Gap 11 BUN 16 Creatinine 0.90 Estim Creat Clear Calc 37.62 L Est GFR (MDRD) Non-Af 63 BUN/Creatinine Ratio 17.4 Glucose 148 H Calcium 9.2 Blood Type B POSITIVE Antibody Screen NEGATIVE Radiography Diagnostic Testing: Clinical Impression(s) from Imaging Studies Hip/Pelvis X-Ray 03/01/25 11:41 IMPRESSION: Acute intertrochanteric fracture of the left femur. Reading Location: [facility] Knee X-Ray 03/01/25 11:41 IMPRESSION: Acute fracture of the left lateral femoral condyle. Reading Location: [facility] Brain CT 03/01/25 12:42 IMPRESSION: 1. No acute intracranial finding. 2. Findings of chronic microvascular ischemic changes and age-related changes. Reading Location: [facility] Lower Extremity CT 03/01/25 12:42 IMPRESSION: No acute osseous fracture. The previously visualized osseous fragment along the distal lateral left femoral condyle is secondary to diffuse bone lucency and probable nutrient channel. Reading Location: [facility] EKG Initial EKG: Attestation: I personally reviewed and interpreted this EKG as follows: Comments: Sinus rhythm ventricular rate 65 bpm Management Discussion w/another healthcare provider: Hospitalist, Compliance Professional (Dr Rosas) and seafood process worker/Case management Discharge Plan Dx/Rx/DC Orders Clinical Impression: Fall, Closed intertrochanteric fracture of left hip, Acute pain of left knee Disposition Disposition: Acute Care Hospital [facility] What to do if you have Problems For any increased pain, shortness of breath, bleeding, nausea or vomiting, chestpain, or any unexpected problems, contact your Primary Care Provider. Call [facility] ([phone]) or report to the closest Emergency Room. Call 911 if necessary. 03/01/25 <Electronically signed by Guerrero Valerio DO> Cosigner Signature (if applicable): CC: Dr. Dillna Santiago MD ~ Signed [facility] Work Phone: [phone] Discharge summary [facility] Medical Records Department [address] [place] [address] Emergency Department Summary 03/01/25 MR#: [id number] Acct: [id number] Name: MICHAELA BRANDT Rep #:[id number] : 1940 84 From: Guerrero Sommer PCP: Dr. Dillan Santiago MD Status:ADM I N Location: [place] [address] HPI HPI - Fall History of Present Illness Chief Complaint: Fall Informant: patient and EMS Narrative Narrative: 84-year-old female presenting to the emergency room with left knee injury. Patient states she was sitting on the side of the bed when she fell off injuringthe left knee. She notes prior right knee surgery. She does not know if they replaced it or not. That was apparently in 2014 in [facility]. Patient reportedly just moved to the area. She denies any other injuries. She states that she cannot really move the knee. Patient is very tearful upset about bothering her children and over her late . There is a report of the degree of dementia that is reported to me. [facility] Medical History (Updated 03/01/25 @ 13:[address] Roro Long, DO) Hypothyroidism Anxiety Dementia Self-catheterizes urinary bladder Hypertension Back pain Home Medications ?Medication ?Instructions ?Recorded ?Last Taken ?Type ascorbic acid (vitamin C) 500 mg 500 mg PO DAILY 03/0102/28/25 History tablet (C-500) clonazepam 0.5 mg tablet 0.5 mg PO TID PRN anxiety 03/01/25 History donepezil 10 mg tablet 10 mg PO DAILY 03/01/2502/17 History escitalopram oxalate 20 mg tablet 20 mg PO DAILY 03/0102/28/25 History levothyroxine 50 mcg tablet 50 mcg PO DAILY 03/01/25 0 03/01/25 History trazodone 50 mg tablet 50 mg PO QHS 03/01/25 History Allergy/AdvReac Type Severity Reaction Status Date / Time No Known Allergies Allergy Verified 03/01/25 11:27 Social History Smoking Status: Unknown if ever smoked ROS ROS ED Constitutional Constitutional ED: Denies chills or weight loss Eyes Eyes: Denies change in vision or diplopia ENT ENT ED: Denies ear pain, rhinorrhea or sore throat Cardiovascular Cardiovascular: Denies chest pain, orthopnea, palpitations or racing heartbeat Respiratory/Chest Respiratory/Chest: Denies cough, dyspnea or orthopnea Gastrointestinal Gastrointestinal: Denies abdominal pain, diarrhea, nausea or vomiting Genitourinary Genitourinary ED: Denies dysuria, hematuria or urinary frequency Musculoskeletal Musculoskeletal: Reports other Details: Left knee pain ; Denies arthralgias, back pain, myalgias or neck pain Integumentary Denies abscess or rash Neurologic Neurologic: Denies headache(s), paresthesias or weakness Psychiatric Psychiatric: Denies anxiety, depression, suicidal ideation or suicidal thoughts Endocrine Endocrinology: Denies polydipsia, polyphagia or polyuria Allergic/Immunologic Allergic/Immunologic ED: Denies mouth swelling, tongue swelling or urticaria EXAM Physical Exam Const Vital Signs: 03/01/25 11:25 03/01/25 11:28 03/01/25 12:26 Temperature 99 F 97.6 F L Temperature Source Oral Pulse Rate 67 67 Respiratory Rate 16 22 H Respiratory Effort Normal Blood Pressure 166/77 H 165/66 H Blood Pressure Mean 106 99 Pulse Ox 99 99 Oxygen Delivery Method Room Air 03/01/25 13:19 Temperature Temperature Source Pulse Rate 60 Respiratory Rate 21 H Respiratory Effort Blood Pressure 145/59 H Blood Pressure Mean 87 Pulse Ox 98 Oxygen Delivery Method Room Air Positive well nourished and well developed General Appearance ED: well developed HEENT Reports normocephalic, head/scalp atraumatic and moist mucous membranes Eyes PERRL and EOMs intact bilaterally Neck no lymphadenopathy, supple and no JVD Resp normal respiratory effort and clear to auscultation bilaterally Cardio regular rate, regular rhythm and no murmurs GI normal to inspection, nondistended, normoactive bowel sounds and non-tender Palpation: soft Back/Spine no CVA tenderness and normal ROM Extremity Extremity Narrative: The left leg appears shortened compared to the right. She has pain with logrollin the left inguinalregion. I do not appreciate any significant knee swelling. Patient guards the knee. She will not lift the leg up off the bed. I do not appreciate contusion ecchymosis or abrasions. She is able to contract the quadriceps. General Extremety ED: Negative for edema General Extremity: Negative for edema Neuro oriented x3 and CN's II-XII intact bilaterally Sensorium / Orientation: alert Motor Exam: strength 5/5 throughout Psych Mood & Affect: depressed and tearful Skin no rashes or lesions noted and no wounds MDM MDM MDM Narrative Medical decision making narrative: Differential diagnosis includes but not limited to hip fracture pelvic fracture knee fracture femurfracture contusion sprain strain My independent interpretation of plain films of the left hip and pelvis is acuteintertrochanteric hip fracture. My independent interpretation of the plain films of the left knee is possible lateral femoral condyle fracture. May have been interpretation of the chest x-ray is no acute process. Case was discussed with on-call orthopedics. CT of the knee will be obtained. CT of the brain will also be obtained. These were read by radiology reviewed bymyself. She will be placed in a knee immobilizer at request of orthopedics. She has received pain and nausea medication. Medication list will be updated. She is not on any blood thinners. She plan of care will be admission to the hospital for surgery. History & Record Review Discussion w/independent historian: EMS personnel, Patient and Family Lab Data Attestation: I reviewed the patient's lab results. Labs: Laboratory Results - last 24 hr 03/01/25 12:15 WBC 18.8 H RBC 4.28 Hgb 13.0 Hct 37.3 MCV 87.1 MCH 30.4 MCHC 34.9 RDW Std Deviation 40.5 RDW Coeff of Leslie 12.9 Plt Count 239 MPV 10.3 Immature Gran % (Auto) 0.600 Neut % (Auto) 92.1 H Lymph % (Auto) 3.3 L [place] % (Auto) 3.8 Eos % (Auto) 0.0 Baso % (Auto) 0.2 Absolute Neuts (auto) 17.3 H Absolute Lymphs (auto) 0.63 L Nucleated RBC % 0 PT 14.9 INR 1.1 APTT 25.8 Sodium 140 Potassium 4.2 Chloride 104 Carbon Dioxide 25.2 Anion Gap 11 BUN 16 Creatinine 0.90 Estim Creat Clear Calc 37.62 L Est GFR (MDRD) Non-Af 63 BUN/Creatinine Ratio 17.4 Glucose 148 H Calcium 9.2 Blood Type B POSITIVE Antibody Screen NEGATIVE Radiography Diagnostic Testing: Clinical Impression(s) from Imaging Studies Hip/Pelvis X-Ray 03/01/25 11:41 IMPRESSION: Acute intertrochanteric fracture of the left femur. Reading Location: [facility] Knee X-Ray 03/01/25 11:41 IMPRESSION: Acute fracture of the left lateral femoral condyle. Reading Location: [facility] Brain CT 03/01/25 12:42 IMPRESSION: 1. No acute intracranial finding. 2. Findings of chronic microvascular ischemic changes and age-related changes. Reading Location: [facility] Lower Extremity CT 03/01/25 12:42 IMPRESSION: No acute osseous fracture. The previously visualized osseous fragment along the distal lateral leftfemoral condyle is secondary to diffuse bone lucency and probable nutrient channel. Reading Location: [facility] EKG Initial EKG: Attestation: I personally reviewed and interpreted this EKG as follows: Comments: Sinus rhythm ventricular rate 65 bpm Management Discussion w/another healthcare provider: Hospitalist, Compliance Professional (Dr Rosas) and seafood process worker/Case management Discharge Plan Dx/Rx/DC Orders Clinical Impression: Fall, Closed intertrochanteric fracture of left hip, Acute pain of left knee Disposition Disposition: Acute Care Hospital [facility] What to do if you have Problems For any increased pain, shortness of breath, bleeding, nausea or vomiting, chestpain, or any unexpected problems, contact your Primary Care Provider. Call [facility] ([phone]) or report tothe closest Emergency Room. Call 911 if necessary. 03/01/25 0360 Cosigner Signature (if applicable): CC: Dr. Dillan Santiago MD ~ Signed [facility]04-13-2025 History and physical note Author Roro Long [facility] Note Date/Time March 01, 2025 4:3 7pm [facility] Medical Records Department [address] [place] [id number] H&P Exam - Hospitalist 03/01/25 1345 MR#: [id number] Acct: [id number] Name: MICHAELA BRANDT Rep #:[id number] : 1940 84 From: Roro Long DO PCP: Dr. Dillan Santiago MD Status:ADM I N [place] [id number] HPI - General General Date of Admission: 03/01/25 Date of Service: 03/01/25 Chief Complaint: L hip pain after mechanical fall HPI Narrative MICHAELA BRANDT, is a 84 F who presented to the emergency department at [facility] on 03/01/2025 with a chief complaint of left leg pain after mechanical fall. Evidently she was sitting on the side of the bed when she slidoff fell to the floor injuring her left leg. She initially complained of knee pain, however, while in the emergency department it was delineated that was probably her left hip rather than her knee. Patient just moved to the area recently. She has had previous knee replacement on the left side. It does appear that she has some memory loss and is a poor historian. Vital signs show temperature of 99, heart rate 67, blood pressure 166/77, respiratory rate 16 and pulse ox was 99% on room air. CBC showed a leukocytosiswhite count of 18.8. Differential was positive for neutrophilia with a neutrophil count of 92.1. Coags were normal. Chemistry panel was unremarkable. Hip and pelvic x-rays showed acute intertrochanteric fracture of the left femur. Left knee x-ray initially showed acute fracture of the left lateral femoral condyle however it was reviewed and a CT was ordered and negative so they felt that what they thought was a fracture was likely a diffuse bone lucency and a nutrient channel. CT of the brain showed findings consistent withchronic microvascular ischemic changes. Chest x-ray showed emphysematous changes and fibrosis but no acute findings. Social work was contacted in the emergency department due to concerns with her memory loss and ongoing social issues and Dr. Rosas was contacted with regardsto the fracture. She will be admitted with an expected 2 midnight stay. [facility] Medical History Hypothyroidism Anxiety Dementia Self-catheterizes urinary bladder Hypertension Back pain Home Medications ?Medication ?Instructions ?Recorded ?Last Taken ?Type ascorbic acid (vitamin C) 500 mg 500 mg PO DAILY 03/0102/28/25 History tablet (C-500) clonazepam 0.5 mg tablet 0.5 mg PO TID PRN anxiety 03/01/25 History donepezil 10 mg tablet 10 mg PO DAILY 03/01/2502/17 History escitalopram oxalate 20 mg tablet 20 mg PO DAILY 03/0102/28/25 History levothyroxine 50 mcg tablet 50 mcg PO DAILY 03/01/25 0 03/01/25 History trazodone 50 mg tablet 50 mg PO QHS 03/01/25 History Allergy/AdvReac Type Severity Reaction Status Date / Time No Known Allergies Allergy Verified 03/01/25 11:27 Family History (Updated 03/01/25 @ 16:[address] Roro Long DO) Other Hypertension Surgical History (Updated 03/01/25 @ 16:[address] Roro Long DO) H/O: hysterectomy Status post right knee replacement Social History (Updated 03/01/25 @ 16:[address] Roro Long DO) household members: none housing: apartment current occupational status: retired other: Daughter lives a few doors down helps her on a regular basis Smoking Status: Never smoker alcohol intake: never substance use type: does not use ROS Constitutional Constitutional: Denies anorexia, change in weight, chills, fatigue, fever(s), malaise, night sweats, weakness or other Eyes Eyes: Denies blurry vision, change in eye color, change in vision, discharge from eye(s), double vision, erythema, eye pain, loss of vision or other ENT HEENT: Denies abnormal hearing, dysphagia, ear pain, epistaxis, headache(s), hearing loss, nasal congestion, nasal discharge, post nasal drip, sinus pressure, sore throat or other Cardiovascular Cardiovascular: Denies chest pain, claudication, dyspnea on exertion, edema, lightheadedness, orthopnea, palpitations, paroxysmal nocturnal dyspnea, rapid heart rate, syncope or other Respiratory/Chest Respiratory/Chest: Denies cough, dyspnea, excessive phlegm production, hemoptysis, productive cough, shortness of breath at rest, shortness of breath with exertion, wheezing or other Gastrointestinal Gastrointestinal: Denies abdominal pain, coffee ground emesis, constipation, diarrhea, dyspepsia, hematemesis, hematochezia, loose stools, melena, nausea, vomiting or other Genitourinary Genitourinary: Denies burning urination, difficulty urinating, dysuria, hematuria, nocturia, urinary frequency, urinary hesitancy, urinary incontinence,urinary urgency or other Musculoskeletal Musculoskeletal: Reports joint pain and joint swelling; Denies arthralgias, backpain, joint stiffness, myalgias, neck pain or other Neurologic Neurologic: Reports confusion and other Details: Memory impairment Psychiatric Psychiatric: Reports anxiety and depression; Denies homicidal ideation, suicidalideation or other Endocrine Endocrinology: Denies change in body appearance, cold intolerance, excessive sweating, heat intolerance, polydipsia, polyuria or other Hematologic/Lymphatic Hematologic/Lymphatic: Denies anemia, easy bleeding, easy bruising, lymphadenopathy or other Allergic/Immunologic Allergic/Immunologic: Denies rhinitis, hives, eczemia, asthma or other Vital Signs Vital Signs Vital Signs: 03/01/25 11:25 03/01/25 11:28 03/01/25 12:26 Temperature 99 F 97.6 F L Temperature Source Oral Pulse Rate 67 67 Respiratory Rate 16 22 H Respiratory Effort Normal Blood Pressure 166/77 H 165/66 H Blood Pressure Mean 106 99 Pulse Ox 99 99 Oxygen Delivery Method Room Air 03/01/25 13:19 Temperature Temperature Source Pulse Rate 60 Respiratory Rate 21 H Respiratory Effort Blood Pressure 145/59 H Blood Pressure Mean 87 Pulse Ox 98 Oxygen Delivery Method Room Air Weight Weight: 59.8 kg Body Mass Index (BMI) 25.7 Physical Exam Const alert, no apparent distress, average body habitus and well nourished Constitutional Narrative: Elderly, forgetful, white female, lying in bed, daughter at bedside, patient is thin, does not appear toxic, pleasant, currently looks comfortable General Appearance: cooperative HEENT normocephalic, head/scalp atraumatic, hearing grossly normal bilaterally and moist oral mucous membranes HEENT Narrative: Dentures in place, Mallampati 2, no thrush Resp normal respiratory effort, no retractions, no use of accessory muscles and clearto auscultation bilaterally Auscultation: Negative for rales, rhonchi or wheezes Cardio regular rate, regular rhythm, S1 normal heart sound, S2 normal heart sound, no murmurs, no rub, no gallops and no clicks GI normal to inspection, nondistended, normoactive bowel sounds, soft to palpation and non-tender Extremity no clubbing, cyanosis or edema Extremity Narrative: Pedal pulses are 2+, radial pulses are 2+ bilaterally Neuro oriented x3 and no focal motor deficits Neuro Narrative: Difficulty moving left lower extremity due to pain Speech: speech normal Psych Negative for affect normal Psych Narrative: Affect is flattened patient seems to Mood & Affect: anxious Results Lab / Micro Data 03/01/25 12:15 03/01/25 12:15 Labs: Laboratory Results - last 24 hr 03/01/25 12:15: WBC 18.8 H, RBC 4.28, Hgb 13.0, Hct 37.3, MCV 87.1, MCH 30.4, MCHC 34.9, RDW Std Deviation 40.5, RDW Coeff of Leslie 12.9, Plt Count 239, MPV 10.3, Immature Gran % (Auto) 0.600, Neut % (Auto) 92.1 H, Lymph % (Auto) 3.3 L, [place] % (Auto) 3.8, Eos % (Auto) 0.0, Baso % (Auto) 0.2, Absolute Neuts (auto) 17.3 H, Absolute Lymphs (auto) 0.63 L, Nucleated RBC % 0, PT 14.9, INR 1.1, APTT25.8, Sodium 140, Potassium 4.2, Chloride 104, Carbon Dioxide 25.2, Anion Gap 11, BUN 16, Creatinine 0.90, Estim Creat Clear Calc 37.62 L, Est GFR (MDRD) Non-Af 63, BUN/Creatinine Ratio 17.4, Glucose 148 H, Calcium 9.2, Blood Type B POSITIVE, Antibody Screen NEGATIVE Imaging Radiology Impression Hip/Pelvis X-Ray 03/01/25 11:41 IMPRESSION: Acute intertrochanteric fracture of the left femur. Reading Location: [facility] Knee X-Ray 03/01/25 11:41 IMPRESSION: Acute fracture of the left lateral femoral condyle. Reading Location: [facility] Brain CT 03/01/25 12:42 IMPRESSION: 1. No acute intracranial finding. 2. Findings of chronic microvascular ischemic changes and age-related changes. Reading Location: [facility] Lower Extremity CT 03/01/25 12:42 IMPRESSION: No acute osseous fracture. The previously visualized osseous fragment along the distal lateral left femoral condyle is secondary to diffuse bone lucency and probable nutrient channel. Reading Location: [facility] Assessment & Plan Assessment/Plan (1) Closed intertrochanteric fracture of left hip: (2) Fall: (3) Acute pain of left knee: PLAN: Plan Closed intertrochanteric fracture of the left hip -Nonweightbearing for now -ED talk to Dr. Rosas and plan is for OR tomorrow-most likely -Tylenol 1000 mg 3 times daily -Oxycodone 5 mg every 6 hours as needed -As needed Dilaudid for breakthrough -Check vitamin D level -Start DVT prophylaxis with enoxaparin tomorrow evening after surgery and await recommendations for DVT prophylaxis after discharge from orthopedic surgery -Place Lizarraga catheter -Chest x-ray and EKG preoperatively pending -PT/OT consultation for postoperative assessment -Scheduled stool softeners -Orthopedic consultation to Dr. Rosas placed -Case management/social work consultation for likely placement at discharge Mechanical fall -PT/OT consultation Dementia -Will hold donepezil while hospitalized -Continue as needed clonazepam to avoid any withdrawal Hypothyroidism -check TSH -Continue home levothyroxine Anxiety/depression -Continue home trazodone -Continue home Lexapro -Continue clonazepam Insomnia -Continue home trazodone DVT prophylaxis -Enoxaparin 40 subcu daily to start tomorrow evening postoperatively CODE STATUS -DNR CCA okay for short-term intubation--> perioperative full code discussion was had with the patient and daughter and they understand that in the 24-hour period surrounding her surgery she will be a full code temporarily. Charges/Coding Visit Charges Inpatient E&M: 29353 Init Hosp L2 03/01/25 1637 <Electronically signed by Roro Long DO> Cosigner Signature (if applicable): CC: Dr. Dillan Santiago MD; Dr. Roro Long DO~ Signed [facility] Work Phone: [phone]) 721-616904-13-2025 History and physical note [facility] Medical Records Department [address] [place] [address] H&P Exam - Hospitalist 03/01/25 1345 MR#: [id number] Acct: [id number] Name: MICHAELA BRANDT Rep #:[id number] : 1940 84 From: Roro Long DO PCP: Dr. Dillan Santiago MD Status:ADM I N Location: [facility] [id number] HPI - General General Date of Admission: 03/01/25 Date of Service: 03/01/25 Chief Complaint: L hip pain after mechanical fall HPI Narrative MICHAELA BRANDT, is a 84 F who presented to the emergency department at [facility] on03/01/2025 with a chief complaint of left leg pain after mechanical fall. Evidently she was sitting on the side of the bed when she slidoff fell to the floor injuring her left leg. She initially complained of knee pain, however, while in the emergency department it was delineated that was probably her left hip rather than her knee. Patient just moved to the area recently. She has had previous kneereplacement on the left side. It does appear that she has some memory loss and is a poor historian. Vital signs show temperature of 99, heart rate 67, blood pressure 166/77, respiratory rate 16 and pulse ox was 99% on room air. CBC showed a leukocytosiswhite count of 18.8. Differential was positivefor neutrophilia with a neutrophil count of 92.1. Coags were normal. Chemistry panel was unremarkable. Hip and pelvic x-rays showed acute intertrochanteric fracture of the left femur. Left knee x-rayinitially showed acute fracture of the left lateral femoral condyle however it was reviewed and a CT was ordered and negative so they felt that what they thought was a fracture was likely a diffuse bone lucency and a nutrient channel. CT of the brain showed findings consistent withchronic microvascular ischemic changes. Chest x-ray showed emphysematous changes and fibrosis but no acute findings. Social work was contacted in the emergency department due to concerns with her memory loss and ongoing social issues and Dr. Rosas was contacted with regardsto the fracture. She will be admitted with an expected 2 midnight stay. [facility] Medical History Hypothyroidism Anxiety Dementia Self-catheterizes urinary bladder Hypertension Back pain Home Medications ?Medication ?Instructions ?Recorded ?Last Taken ?Type ascorbic acid (vitamin C) 500 mg 500 mg PO DAILY 03/0102/28/25 History tablet (C-500) clonazepam 0.5 mg tablet 0.5 mg PO TID PRN anxiety 03/01/25 History donepezil 10 mg tablet 10 mg PO DAILY 03/01/2502/17 History escitalopram oxalate 20 mg tablet 20 mg PO DAILY 03/0102/28/25 History levothyroxine 50 mcg tablet 50 mcg PO DAILY 03/01/25 0 03/01/25 History trazodone 50 mg tablet 50 mg PO QHS 03/01/25 History Allergy/AdvReac Type Severity Reaction Status Date / Time No Known Allergies Allergy Verified 03/01/25 11:27 Family History (Updated 03/01/25 @ 16:[address] Roro Long DO) Other Hypertension Surgical History (Updated 03/01/25 @ 16:[address] Roro Long DO) H/O: hysterectomy Status post right knee replacement Social History (Updated 03/01/25 @ 16:[address] Roro Long DO) household members: none housing: apartment current occupational status: retired other: Daughter lives a few doors down helps her on a regular basis Smoking Status: Never smoker alcohol intake: never substance use type: does not use ROS Constitutional Constitutional: Denies anorexia, change in weight, chills, fatigue, fever(s), malaise, night sweats, weakness or other Eyes Eyes: Denies blurry vision, change in eye color, change in vision, discharge from eye(s), double vision, erythema, eye pain, loss of vision or other ENT HEENT: Denies abnormal hearing, dysphagia, ear pain, epistaxis, headache(s), hearing loss, nasal congestion, nasal discharge, post nasal drip, sinus pressure, sore throat or other Cardiovascular Cardiovascular: Denies chest pain, claudication, dyspnea on exertion, edema, lightheadedness, orthopnea, palpitations, paroxysmal nocturnal dyspnea, rapid heart rate, syncope or other Respiratory/Chest Respiratory/Chest: Denies cough, dyspnea, excessive phlegm production, hemoptysis, productive cough, shortness of breath at rest, shortness of breath with exertion, wheezing or other Gastrointestinal Gastrointestinal: Denies abdominal pain, coffee ground emesis, constipation, diarrhea, dyspepsia, hematemesis, hematochezia, loose stools, melena, nausea, vomiting or other Genitourinary Genitourinary: Denies burning urination, difficulty urinating, dysuria, hematuria, nocturia, urinary frequency, urinary hesitancy, urinary incontinence,urinary urgency or other Musculoskeletal Musculoskeletal: Reports joint pain and joint swelling; Denies arthralgias, backpain, joint stiffness, myalgias, neck pain or other Neurologic Neurologic: Reports confusion and other Details: Memory impairment Psychiatric Psychiatric: Reports anxiety and depression; Denies homicidal ideation, suicidalideation or other Endocrine Endocrinology: Denies change in body appearance, cold intolerance, excessive sweating, heat intolerance, polydipsia, polyuria or other Hematologic/Lymphatic Hematologic/Lymphatic: Denies anemia, easy bleeding, easy bruising, lymphadenopathy or other Allergic/Immunologic Allergic/Immunologic: Denies rhinitis, hives, eczemia, asthma or other Vital Signs Vital Signs Vital Signs: 03/01/25 11:25 03/01/25 11:28 03/01/25 12:26 Temperature 99 F 97.6 F L Temperature Source Oral Pulse Rate 67 67 Respiratory Rate 16 22 H Respiratory Effort Normal Blood Pressure 166/77 H 165/66 H Blood Pressure Mean 106 99 Pulse Ox 99 99 Oxygen Delivery Method Room Air 03/01/25 13:19 Temperature Temperature Source Pulse Rate 60 Respiratory Rate 21 H Respiratory Effort Blood Pressure 145/59 H Blood Pressure Mean 87 Pulse Ox 98 Oxygen Delivery Method Room Air Weight Weight: 59.8 kg Body Mass Index (BMI) 25.7 Physical Exam Const alert, no apparent distress, average body habitus and well nourished Constitutional Narrative: Elderly, forgetful, white female, lying in bed, daughter at bedside, patient is thin, does not appear toxic, pleasant, currently looks comfortable General Appearance: cooperative HEENT normocephalic, head/scalp atraumatic, hearing grossly normal bilaterally and moist oral mucous membranes HEENT Narrative: Dentures in place, Mallampati 2, no thrush Resp normal respiratory effort, no retractions, no use of accessory muscles and clearto auscultation bilaterally Auscultation: Negative for rales, rhonchi or wheezes Cardio regular rate, regular rhythm, S1 normal heart sound, S2 normal heart sound, no murmurs, no rub, no gallops and no clicks GI normal to inspection, nondistended, normoactive bowel sounds, soft to palpation and non-tender Extremity no clubbing, cyanosis or edema Extremity Narrative: Pedal pulses are 2+, radial pulses are 2+ bilaterally Neuro oriented x3 and no focal motor deficits Neuro Narrative: Difficulty moving left lower extremity due to pain Speech: speech normal Psych Negative for affect normal Psych Narrative: Affect is flattened patient seems to Mood & Affect: anxious Results Lab / Micro Data 03/01/25 12:15 03/01/25 12:15 Labs: Laboratory Results - last 24 hr 03/01/25 12:15: WBC 18.8 H, RBC 4.28, Hgb 13.0, Hct 37.3, MCV 87.1, MCH 30.4, MCHC 34.9, RDW Std Deviation 40.5, RDW Coeff of Leslie 12.9, Plt Count 239, MPV 10.3, Immature Gran % (Auto) 0.600, Neut % (Auto) 92.1 H, Lymph % (Auto) 3.3 L, [place] % (Auto) 3.8, Eos % (Auto) 0.0, Baso % (Auto) 0.2, AbsoluteNeuts (auto) 17.3 H, Absolute Lymphs (auto) 0.63 L, Nucleated RBC % 0, PT 14.9, INR 1.1, APTT25.8, Sodium 140, Potassium 4.2, Chloride 104, Carbon Dioxide 25.2, Anion Gap 11, BUN 16, Creatinine 0.90,Estim Creat Clear Calc 37.62 L, Est GFR (MDRD) Non-Af 63, BUN/Creatinine Ratio 17.4, Glucose 148 H,Calcium 9.2, Blood Type B POSITIVE, Antibody Screen NEGATIVE Imaging Radiology Impression Hip/Pelvis X-Ray 03/01/25 11:41 IMPRESSION: Acute intertrochanteric fracture of the left femur. Reading Location: [facility] Knee X-Ray 03/01/25 11:41 IMPRESSION: Acute fracture of the left lateral femoral condyle. Reading Location: [facility] Brain CT 03/01/25 12:42 IMPRESSION: 1. No acute intracranial finding. 2. Findings of chronic microvascular ischemic changes and age-related changes. Reading Location: [facility] Lower Extremity CT 03/01/25 12:42 IMPRESSION: No acute osseous fracture. The previously visualized osseous fragment along the distal lateral leftfemoral condyle is secondary to diffuse bone lucency and probable nutrient channel. Reading Location: [id number] Assessment & Plan Assessment/Plan (1) Closed intertrochanteric fracture of left hip: (2) Fall: (3) Acute pain of left knee: PLAN: Plan Closed intertrochanteric fracture of the left hip -Nonweightbearing for now -ED talk to Dr. Rosas and plan is for OR tomorrow-most likely -Tylenol 1000 mg 3 times daily -Oxycodone 5 mg every 6 hours as needed -As needed Dilaudid for breakthrough -Check vitamin D level -Start DVT prophylaxis with enoxaparin tomorrow evening after surgery and await recommendations forDVT prophylaxis after discharge from orthopedic surgery -Place Lizarraga catheter -Chest x-ray and EKG preoperatively pending -PT/OT consultation for postoperative assessment -Scheduled stool softeners -Orthopedic consultation to Dr. Rosas placed -Case management/social work consultation for likely placement at discharge Mechanical fall -PT/OT consultation Dementia -Will hold donepezil while hospitalized -Continue as needed clonazepam to avoid any withdrawal Hypothyroidism -check TSH -Continue home levothyroxine Anxiety/depression -Continue home trazodone -Continue home Lexapro -Continue clonazepam Insomnia -Continue home trazodone DVT prophylaxis -Enoxaparin 40 subcu daily to start tomorrow evening postoperatively CODE STATUS -DNR CCA okay for short-term intubation--> perioperative full code discussion was had with the patient and daughter and they understand that in the 24-hour period surrounding her surgery she will be a full code temporarily. Charges/Coding Visit Charges Inpatient E&M: 24712 Init Hosp L2 03/01/25 1637 Cosigner Signature (if applicable): CC: Dr. Dillan Santiago MD; Dr. Roro Long DO~ Signed [facility]04-13-2025 Evaluation note* Diagnosis Onset Date Resolution Status Admit Date Acute pain of left knee acute A pril 2024 1:47pm Closed intertrochanteric fra cture of left hip acute March 01, 2025 1:47pm Fall acute March 01 1:47pm [facility] Work Phone: 1(330) 632-182204-13-2025 Evaluation note* Diagnosis Onset Date Resolution Status Admit Date [facility] of [facility] Closed intertrochanteric fra cture of left hip inactive March 01, 2025 1:47pm Fall inactive March 01 1:47pm Anxiety acute March 04 3:04pm Debility acute March 04 3:04pm Dementia acute March 04 3:04pm Depression acute March 04 3:04pm Hypothyroidism acute February 3:04pm Insomnia acute March 04 3:04pm Urinary retention acute February 172024 3:04pm Acute pain of left knee resolved A [facility] 2024 3:04pm Closed intertrochanteric fra cture of left hip inactive March 04, 2025 3:04pm Fall inactive March 04 3:04pm [facility] Work Phone: 1(336) 637-527604-13-2025 Radiology Diagnostic study note [facility] Imaging Services [address] [place] [address] Chest 1 View (Portable) MR#: [id number] Acct: [id number] Name: MICHAELA BRANDT Rep #: [id number] : 1940 F 84 From: Jo Rabago MD PCP: Dr. Dillan Santiago MD Status: ADM I N Study:Chest 1 View (Portable) Date of Exam: 03/01/25 Exam# [id number] Ordering Dr: Cassy Long DO PROCEDURE: CHEST 1 VIEW (PORTABLE) 03/01/2025 REASON FOR EXAM: PREOP TECHNIQUE: Frontal view of the chest. COMPARISON: None. FINDINGS: Hardware: None. Heart: The heart size is normal. Lungs: Findings of emphysema/fibrosis with bibasilar atelectasis/scarring. No focal consolidation, pleural effusion or pneumothorax. Bones: Degenerative changes are identified within the thoracic spine. Chronic left humeral head fracture deformity. RAD/Chest 1 View (Portable) IMPRESSION: Emphysema/fibrosis. No acute findings. Reading Location: [facility] CC: Dr. Dillan Santiago MD; Dr. Roro Long DO ~ Harbour Master: Signed [facility]04-13-2025 Radiology Diagnostic study note [facility] Imaging Services [address] [place], [place] [address] Knee 1 or 2 Views MR#: [id number] Acct: [id number] Name: MICHAELA BRANDT Rep #: [id number] : 1940 F 84 From: Jo Rabago MD PCP: Dr. Dillan Santiago MD Status: REG E R Study:Knee 1 or 2 Views Date of Exam: Exam# [id number] Ordering Dr: Veto Valerio DO ADDENDUM by Dr. Janet Rabago MD on 03/01/25 at 1310 No acute osseous fracture seen on same day CT of the left knee. The previously visualized osseous fragment along the distal lateral left femoral condyle is secondary to diffuse bone lucency and probable nutrient channel. Reading Location: [facility] 03/01/25 1311 Date cc: Dr. Dillan Santiago MD; Dr. Guerrero Valerio DO ~* Signed PROCEDURE: KNEE 1 OR 2 VIEWS 03/01/2025 REASON FOR EXAM: INJURY TECHNIQUE: 2 view(s) of the left knee COMPARISON: None. FINDINGS: Bones: Acute fracture deformity of the left lateral femoral condyle, with mild displacement. Joints: No intra-articular involvement of the fracture fragment. Moderate degenerative joint changes. Effusion: Small joint effusion. Soft tissues: Soft tissues are unremarkable. Other: Vascular calcifications. RAD/Knee 1 or 2 Views IMPRESSION: Acute fracture of the left lateral femoral condyle. Reading Location: [facility] CC: Dr. Dillan Santiago MD; Dr. Guerrero Valerio DO ~ Harbour Master: Signed [facility]04-13-2025 Radiology Diagnostic study note [facility] Imaging Services [address] [place] [address] Extremity Lower without Contra MR#: [id number] Acct: [id number] Name: MICHAELA BRANDT Rep #: [id number] : 1940 F 84 From: Jo Rabago MD PCP: Dr. Dillan Santiago MD Status: REG E R Study:Extremity Lower without Contra Date of Exam: 03/01/25 Exam# [id number] Ordering Dr: Veto Valerio DO PROCEDURE: EXTREMITY LOWER WITHOUT CONTRA 03/01/2025 REASON FOR EXAM: PAIN TECHNIQUE: Axial CT images of the left lower extremity obtained without intravenous contrast. Coronal and Sagittal reconstruction series were provided. One or more dose reduction techniques were used (e.g., Automated exposure control, adjustment of the mA and/or kV according to patient size, use of iterative reconstruction technique RADIATION DOSE SUMMARY: CTDlvol: 15 mGy DLP: 420 mGycm COMPARISON: Same day left knee radiographs. FINDINGS: Bones: Diffuse osseous demineralization. No acute osseous fracture. The previously visualized osseous fragment along the distal lateral left femoral condyle is secondary to diffuse bone lucency and probable nutrient channel. Noaggressive osseous lesions. Partially visualized orthopedic hardware within the right patella. Joints: Moderate left knee joint arthrosis. No traumatic dislocation. Soft Tissues: Vascular calcifications. Diffuse muscular atrophy. No subcutaneous hematoma or edema. CT/Extremity Lower without Contra IMPRESSION: No acute osseous fracture. The previously visualized osseous fragment along the distal lateral leftfemoral condyle is secondary to diffuse bone lucency and probable nutrient channel. Reading Location: [facility] CC: Dr. Dillan Santiago MD; Dr. Guerrero Valerio DO ~ Harbour Master: Signed [facility]04-13-2025 Radiology Diagnostic study note [facility] Imaging Services [address] [place] [id number] Brain/Head without Contrast MR#: [id number] Acct: [id number] Name: MICHAELA BRANDT Rep #: [id number] : 1940 F 84 From: Jo Rabago MD PCP: Dr. Dillan Santiago MD Status: REG E R Study:Brain/Head without Contrast Date of Exa m: 03/01/25 Exam# [id number] Ordering Dr: Veto Valerio DO EXAM: BRAIN/HEAD WITHOUT CONTRAST CLINICAL HISTORY: 84 y/o F with INJURY. COMPARISON: CT head 01/17/2025. TECHNIQUE: Routine CT imaging of the head without IV contrast. Additional multiplanar reformats were obtained. Dose reduction techniques were used including intermediate exposure control (AEC),iterative reconstruction technique, and/or mA and/or KV dose adjustments based on patient's size. FINDINGS: Moderate generalized cerebral and cerebellar volume loss with concordant prominence of the ventricles and subarachnoid spaces. Moderate patchy supratentorial white matter hypodensities. The murray-white matter interfaces are otherwise maintained. No acute intracranial hemorrhage or herniation. The orbits, visualized paranasal sinuses and mastoids are unremarkable. No calvarial fracture or scalp hematoma. CT/Brain/Head without Contrast IMPRESSION: 1. No acute intracranial finding. 2. Findings of chronic microvascular ischemic changes and age-related changes. Reading Location: [facility] CC: Dr. Dillan Santiago MD; Dr. Guerrero Valerio DO ~ Harbour Master: Signed [facility]04-13-2025 Radiology Diagnostic study note [facility] Imaging Services [address] [place], [place] [id number] HIP, UNI W/ Pelvis 2-3 Views MR#: [id number] Acct: [id number] Name: MICHAELA BRANDT Rep #: [id number] : 1940 F 84 From: Jo Rabago MD PCP: Dr. Dillan Santiago MD Status: REG E R Study:HIP, UNI W/ Pelvis 2-3 Views Date of Ex am: 03/01/25 Exam# [id number] Ordering Dr: Veto Valerio DO PROCEDURE: HIP, UNI W/ PELVIS 2-3 VIEWS 03/01/2025 REASON FOR EXAM: INJURY TECHNIQUE: 2 views of the left hip with AP pelvis COMPARISON: None. FINDINGS: Bones: Acute intertrochanteric fracture of the left femur, with mild foreshortening and impaction. Joints: No obvious intra-articular extension of the left hip fracture. 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 Mild bilateral hip joint arthrosis. Soft tissues: Soft tissue swelling. Other: Degenerative changes of the lumbar spine. RAD/HIP, UNI W/ Pelvis 2-3 Views IMPRESSION: Acute intertrochanteric fracture of the left femur. Reading Location: [id number] CC: Dr. Dillan Santiago MD; Dr. Guerrero Valerio DO ~ Harbour Master: Signed [facility]04-11-2025 Telephone encounter Note* Telephone Encounter - Kentrell Montgomery MSW - 02/27/2025 2:48 PM EDT Thomas spoke with patient daughter Maribeth. Maribeth noted that her mother is currently living on [address] Stahl is concerned about mother living by herself. There are cameras set up in apt to keep watch on patient in case of falls. Discussed different social service agencies and services they offer ie. [facility] [facility] [employer] and [employer]. Thomas provided patient daughter with Lala Huntley phone number for help with looking at memory care options in the area. Thomas and daughter also discussed different local memory care options ie. [place], [place], [facility], [facility]. Maribeth notes that her mom was not interested in any place that looks like a halfway. Discussed the different options above and layout and levels of care they offer. Maribeth notes that she is going to give Yuko a call from [employer] to see about her assistance as a correction advisor looking at level of care memory care options for patient. Maribeth has this direct number for further assistance. [facility]04-11-2025 Miscellaneous Notes* Telephone Encounter - Kentrell Montgomery MSW - 02/27/2025 2:48 PM EDT Thomas spoke with patient daughter Maribeth. Maribeth noted that her mother is currently living on [address] Stahl is concerned about mother living by herself. There are cameras set up in apt to keep watch on patient in case of falls. Discussed different social service agencies and services they offer ie. [facility] [facility] [employer] and [employer]. Thomas provided patient daughter with Lala Huntley phone number for help with looking at memory care options in the area. Sw and daughter also discussed different local memory care options ie. [place], [place], [facility], [facility]. Maribeth notes that her mom was not interested in any place that looks like a halfway. Discussed the different options above and layout and levels of care they offer. Maribeth notes that she is going to give Yuko a call from [employer] to see about her assistance as a correction advisor looking at level of care memory care options for patient. Maribeth has this direct number for further assistance. * Telephone Encounter - Kentrell Montgomery MSW - 02/27/2025 2:26 PM EDT Sw left message for patient requesting call back to discuss patient home care resource needs. [facility] Telephone encounter Note * Telephone Encounter - Kentrell Montgomery MSW - 02/27/2025 2:26 PM EDT Thomas left message for patient requesting call back to discuss patient home care resource needs. [facility]04-09-2025 Telephone encounter Note* Telephone Encounter - Mariposa Salinas APRN.CNP - 02/25/2025 8:56 AM EDT PDMP website checked and validated. All prescriptions have been APPROPRIATELY filled. No suspiciousactivity was identified. 02/25/2025 by Mariposa Salinas APRN.CNP [facility]04-09-2025 Miscellaneous Notes* Telephone Encounter - Mariposa Salinas APRN.CNP - 02/25/2025 8:56 AM EDT [facility] website checked and validated. All prescriptions have been APPROPRIATELY filled. No suspiciousactivity was identified. 02/25/2025 by Mariposa Salinas APRN.CNP * Telephone Encounter - Radha Haro LPN - 02/25/2025 8:20 AM EDT Patient has been identified by name and date of : Yes Patient phones for refill(s): Requested Prescriptions Pending Prescriptions Disp Refills clonazePAM (KLONOPIN) 0.5 mg tablet 45 tablet 0 Sig: Take 1 tablet by mouth three times a day as needed for anxiety for up to 30 days. Date of last office visit in primary care: 02/04/2025 Date of next office visit in primary care: 05/06/2025 Please advise. Thank you. Radha Haro LPN. [facility] Telephone encounter Note * Telephone Encounter - Radha Haro LPN - 02/25/2025 8:20 AM EDT Patient has been identified by name and date of : Yes Patient phones for refill(s): Requested Prescriptions Pending Prescriptions Disp Refills clonazePAM (KLONOPIN) 0.5 mg tablet 45 tablet 0 Sig: Take 1 tablet by mouth three times a day as needed for anxiety for up to 30 days. Date of last office visit in primary care: 02/04/2025 Date of next office visit in primary care: 05/06/2025 Please advise. Thank you. Radha Haro LPN. [facility]04-06-2025 Telephone encounter Note* Telephone Encounter - Sara Adams OCCA - 02/22/2025 9:08 AM EDT TC to patients daughter and medical Michaela MARTINEZ, who verbalized understanding of providers message below. KIRIT Mendez [facility]04-06-2025 Miscellaneous Notes* Telephone Encounter - Sara Adams OCCA - 02/22/2025 9:08 AM EDT TC to patients daughter and medical Michaela MARTINEZ, who verbalized understanding of providers message below. KIRIT Mendez * Telephone Encounter - Walt Robles APRN.CNP - 02/22/2025 8:31 AM EDT Patient is on the correct antibiotic. Symptoms should be improving. If symptoms are not improving patient needs to see primary care [facility] Telephone encounter Note * Telephone Encounter - Walt Robles APRN.CNP - 02/22/2025 8:31 AM EDT Patient is on the correct antibiotic. Symptoms should be improving. If symptoms are not improving patient needs to see primary care [facility]04-03-2025 Telephone encounter Note* Telephone Encounter - Colten Greer MA - 02/19/2025 3:19 PM EDT Spoke with patient's daughter. Daughter will bring patient in for urine. Colten Greer MA [facility]04-03-2025 Miscellaneous Notes* Telephone Encounter - Colten Greer MA - 02/19/2025 3:19 PM EDT Spoke with patient's daughter. Daughter will bring patient in for urine. Colten Greer MA * Telephone Encounter - Walt Robles APRN.CNP - 02/19/2025 3:03 PM EDT Please call patient and have her come back in and give a urine culture. documented [facility]04-[facility] Telephone encounter Note * Telephone Encounter - Walt Rolbes APRN.CNP - 02/19/2025 3:03 PM EDT Please call patient and have her come back in and give a urine culture. [facility]04-03-2025 NoteHNO ID: [id number] Author: WALT ORBLES APRN.CNP Service: ? Author Type: Nurse Practitioner Type: Progress Notes Filed: 02/19/2025 12:00 Note Text: [facility] Subjective Michaela Brandt is a 84 year old female. Patient presents with: Urinary Problem: Brain fog, 1 day Patient came in with complaints of urinary frequency and brain fog. Daughter says this is usually when she has a UTI. Patient just had one 6 weeks ago was on Keflex did get better. He symptoms started a couple days ago. Patient does self cath. The history is provided by the patient. No humanities and languages professor was used. Review of Systems Constitutional: Negative. HENT: Negative. Objective BP 145/79 Pulse 70 Temp 37.1 ?C (98.7 ?F) Resp 22 Wt 57 kg (125 lb 10.6 oz) LMP (LMP Unknown) SpO2 98% Physical Exam Constitutional: Appearance: Normal appearance. HENT: Right Ear: Tympanic membrane, ear canal and external ear normal. Left Ear: Tympanic membrane, ear canal and external ear normal. Mouth/Throat: Mouth: Mucous membranes are moist. Eyes: Pupils: Pupils are equal, round, and reactive to light. Cardiovascular: Rate and Rhythm: Normal rate and regular rhythm. Heart sounds: Normal heart sounds. Pulmonary: Effort: Pulmonary effort is normal. Breath sounds: Normal breath sounds. Abdominal: General: Abdomen is flat. Palpations: Abdomen is soft. Tenderness: There is no abdominal tenderness. There is no right CVA tenderness, left CVA tenderness or guarding. Neurological: Mental Status: She is alert. PAST MEDICAL HISTORY Diagnosis Date Anxiety Depression Hypothyroidism Neurogenic bladder Thyroid disease PAST SURGICAL HISTORY Procedure Laterality Date HYSTERECTOMY HX SPINE SURGERY HX TOOTH EXTRACTION Wears upper and lower dentures ALLERGIES Patient has no known allergies. MEDICATIONS ascorbic acid (VITAMIN C ORAL) Take by mouth once daily. donepezil (ARICEPT) 10 mg tablet Take 1 tablet by mouth daily after breakfast. clonazePAM (KLONOPIN) 0.5 mg tablet Take 1 tablet by mouth three times a day as needed for anxiety for up to 30 days. Patient should start on January 31, 2025. Catheter (SELF-CATHETER, FEMALE) 14 Fr misc Self catheterizes four times daily levothyroxine (EUTHYROX) 50 mcg tablet Take 1 tablet by mouth once daily. escitalopram oxalate (LEXAPRO) 20 mg tablet Take 1 tablet by mouth once daily. traZODone (DESYREL) 50 mg tablet Take 1 tablet by mouth daily at bedtime. cephALEXin (KEFLEX) 500 mg capsule Take 1 capsule by mouth four times daily for 7 days. clonazePAM (KLONOPIN) 0.5 mg tablet Take 1 tablet by mouth three times a day as needed for anxiety for up to 30 days. (Patient not taking: Reported on 02/04/2025) FAMILY HISTORY Problem Relation Age of Onset Diabetes Mother Coronary Artery Disease Mother Hypertension Mother Prostate Cancer Father Breast Cancer Sister Hypertension Sister Hypertension Maternal Grandmother No Known Problems Maternal Grandfather No Known Problems Paternal Grandmother No Known Problems Paternal Grandfather Leukemia Daughter Hypertension Daughter Thyroid Daughter Social History Tobacco Use Smoking status: Never Smokeless tobacco: Never Vaping Use Vaping status: Never Used Substance Use Topics Alcohol use: Never Drug use: Never {ASSESSMENT/PLAN: 1. Recurrent UTI (urinary tract infection) - ICD9: 599.0, ICD10: N39.0 acute - Send urine for culture - Patient education for prevention given - UA DIP, URINE (POC) - CEPHALEXIN 500 MG CAPSULE Went with Keflex if culture requires antibiotic to be changed please change accordingly. Walt Robles APRN.COMMUNITY OUTREACH WORKER [facility] History of Present illness Narrative* Walt Robles APRN.ARIEL - 02/19/2025 11:37 AM EDT [facility] Subjective Michaela Brandt is a 84 year old female. Patient presents with: Urinary Problem: Brain fog, 1 day Patient came in with complaints of urinary frequency and brain fog. Daughter says this is usually when she has a UTI. Patient just had one 6 weeks ago was on Keflex did get better. He symptoms started a couple days ago. Patient does self cath. The history is provided by the patient. No humanities and languages professor was used. Review of Systems Constitutional: Negative. HENT: Negative. Objective BP 145/79 Pulse 70 Temp 37.1 C (98.7 F) Resp 22 Wt 57 kg (125 lb 10.6 oz) LMP (LMP Unknown) SpO2 98% Physical Exam Constitutional: Appearance: Normal appearance. HENT: Right Ear: Tympanic membrane, ear canal and external ear normal. Left Ear: Tympanic membrane, ear canal and external ear normal. Mouth/Throat: Mouth: Mucous membranes are moist. Eyes: Pupils: Pupils are equal, round, and reactive to light. Cardiovascular: Rate and Rhythm: Normal rate and regular rhythm. Heart sounds: Normal heart sounds. Pulmonary: Effort: Pulmonary effort is normal. Breath sounds: Normal breath sounds. Abdominal: General: Abdomen is flat. Palpations: Abdomen is soft. Tenderness: There is no abdominal tenderness. There is no right CVA tenderness, left CVA tendernessor guarding. Neurological: Mental Status: She is alert. PAST MEDICAL HISTORY Diagnosis Date Anxiety Depression Hypothyroidism Neurogenic bladder Thyroid disease PAST SURGICAL HISTORY Procedure Laterality Date HYSTERECTOMY HX SPINE SURGERY HX TOOTH EXTRACTION Wears upper and lower dentures ALLERGIES Patient has no known allergies. MEDICATIONS ascorbic acid (VITAMIN C ORAL) Take by mouth once daily. donepezil (ARICEPT) 10 mg tablet Take 1 tablet by mouth daily after breakfast. clonazePAM (KLONOPIN) 0.5 mg tablet Take 1 tablet by mouth three times a day as needed for anxiety for up to 30 days. Patient should start on January 31, 2025. Catheter (SELF-CATHETER, FEMALE) 14 Fr misc Self catheterizes four times daily levothyroxine (EUTHYROX) 50 mcg tablet Take 1 tablet by mouth once daily. escitalopram oxalate (LEXAPRO) 20 mg tablet Take 1 tablet by mouth once daily. traZODone (DESYREL) 50 mg tablet Take 1 tablet by mouth daily at bedtime. cephALEXin (KEFLEX) 500 mg capsule Take 1 capsule by mouth four times daily for 7 days. clonazePAM (KLONOPIN) 0.5 mg tablet Take 1 tablet by mouth three times a day as needed for anxiety for up to 30 days. (Patient not taking: Reported on 02/04/2025) FAMILY HISTORY Problem Relation Age of Onset Diabetes Mother Coronary Artery Disease Mother Hypertension Mother Prostate Cancer Father Breast Cancer Sister Hypertension Sister Hypertension Maternal Grandmother No Known Problems Maternal Grandfather No Known Problems Paternal Grandmother No Known Problems Paternal Grandfather Leukemia Daughter Hypertension Daughter Thyroid Daughter Social History Tobacco Use Smoking status: Never Smokeless tobacco: Never Vaping Use Vaping status: Never Used Substance Use Topics Alcohol use: Never Drug use: Never {ASSESSMENT/PLAN: 1. Recurrent UTI (urinary tract infection) - ICD9: 599.0, ICD10: N39.0 acute - Send urine for culture - Patient education for prevention given - UA DIP, URINE (POC) - CEPHALEXIN 500 MG CAPSULE Went with Keflex if culture requires antibiotic to be changed please change accordingly. Walt Robles APRN.CNP MDM Procedures documented in [facility] encounter[facility]04-02-2025 NoteHNO ID: [id number] Author: MICHAELA DAVILA MA Service: ? Author Type: Procurement Consultant Type: Progress Notes Filed: 02/18/2025 16:19 Note Text: Ambulatory Ear Lavage Pre-treatment: No pre-treatment Treatment: Right ear Equipment and Irrigation solution and Volume used: Single use syringe with single use irrigation tip Water Return flow appearance: Debris Patient tolerated procedure: yes Tympanic membrane assessment: Tympanic membrane assessed by LIP pre and post procedureC[facility]04-[facility] History of Present illness Narrative* Michaela Davila MA - 02/18/2025 11:19 AM EDT Ambulatory Ear Lavage Pre-treatment: No pre-treatment Treatment: Right ear Equipment and Irrigation solution and Volume used: Single use syringe with single use irrigation tip Water Return flow appearance: Debris Patient tolerated procedure: yes Tympanic membrane assessment: Tympanic membrane assessed by LIP pre and post procedure * Mariposa Salinas APRN.COMMUNITY OUTREACH WORKER - 02/18/2025 10:26 AM EDT CC: Patient presents with: Recheck: Follow up HPI Michaela Brandt is a 84 year old female who presents today for ear lavage Has history of needing ears cleaned and has not had it done since sometime last year. Denies any ear pain, drainage, fever, chills, loss of hearing, or dizziness. Gets occasionally ringing in her ears but has had this for years. Was going to use debrox ear drops but this was never sent in and doesn't think she would want to use this anyway. REVIEW OF SYSTEMS See HPI PAST MEDICAL HISTORY Diagnosis Date Anxiety Depression Hypothyroidism Neurogenic bladder Thyroid disease PAST SURGICAL HISTORY Procedure Laterality Date HYSTERECTOMY HX SPINE SURGERY HX TOOTH EXTRACTION Wears upper and lower dentures ALLERGIES Patient has no known allergies. MEDICATIONS ascorbic acid (VITAMIN C ORAL) Take by mouth once daily. donepezil (ARICEPT) 10 mg tablet Take 1 tablet by mouth daily after breakfast. clonazePAM (KLONOPIN) 0.5 mg tablet Take 1 tablet by mouth three times a day as needed for anxiety for up to 30 days. Patient should start on January 31, 2025. clonazePAM (KLONOPIN) 0.5 mg tablet Take 1 tablet by mouth three times a day as needed for anxiety for up to 30 days. (Patient not taking: Reported on 02/04/2025) Catheter (SELF-CATHETER, FEMALE) 14 Fr misc Self catheterizes four times daily levothyroxine (EUTHYROX) 50 mcg tablet Take 1 tablet by mouth once daily. escitalopram oxalate (LEXAPRO) 20 mg tablet Take 1 tablet by mouth once daily. traZODone (DESYREL) 50 mg tablet Take 1 tablet by mouth daily at bedtime. FAMILY HISTORY Problem Relation Age of Onset Diabetes Mother Coronary Artery Disease Mother Hypertension Mother Prostate Cancer Father Breast Cancer Sister Hypertension Sister Hypertension Maternal Grandmother No Known Problems Maternal Grandfather No Known Problems Paternal Grandmother No Known Problems Paternal Grandfather Leukemia Daughter Hypertension Daughter Thyroid Daughter Social History Tobacco Use Smoking status: Never Smokeless tobacco: Never Vaping Use Vaping status: Never Used Substance Use Topics Alcohol use: Never Drug use: Never PHYSICAL EXAM BP 122/80 Pulse 74 Resp 16 Wt 57.6 kg (127 lb) LMP (LMP Unknown) SpO2 97% General Appearance: well appearing, in no acute distress, alert Eyes: conjunctiva pink and moist, no icterus, sclera white, non-injected Ears: external ears normal to inspection and palpation, canals clear, Left tympanic membrane normalwith small amount of cerumen in canal. , Right tympanic membrane with cerumen impaction prior to irrigation and normal TM post irrigation Health maintenance reviewed with patient: Depression Screening Never done Anxiety Screening Never done DTaP,Tdap,Td Vaccine(1 - Tdap) Never done Bone Density Screening Never done Shingrix Vaccine(2 of 3) due on 01/14/2009 RSV Vaccine(1 - 1-dose 75+ series) Never done Pneumococcal Vaccine: 50+(2 of 2 - PCV) due on 02/28/2020 Influenza Vaccine(1) due on 07/20/2024 Covid-19 Vaccine(2023- season) due on 07/20/2024 Advance Directive Discussion due on 11/19/2024 Diabetes Screening due on 11/17/2027 DATA REVIEWED: No new labs ASSESSMENT/PLAN: 1. Impacted cerumen of right ear - ICD9: 380.4, ICD10: H61.21 Patient tolerated ear lavage well with relief of cerumen impaction Follow up for any concerns - AMBULATORY EAR LAVAGE/IRRIGATION Prescription instructions reviewed with patient as applicable. Potential red flag symptoms discussed with the patient. Reviewed appropriate action plan to take if red flag symptoms occur. Patient agreeable to treatment plan. Mariposa Salinas APRN.COMMUNITY OUTREACH WORKER Medical Decision Making: Problems: Minimal: Self-limited or minor problem Data: Unique test(s) ordered: 1 Risk: Low: Low risk from testing/treatment Medical Decision Making Level: 2 - Straightforward documented in this encounterMart[facility] NoteHNO ID: [id number] Author: MARIPOSA SALINAS APRN.CNP Service: ? Author Type: Nurse Practitioner Type: Progress Notes Filed: 02/18/2025 16:19 Note Text: CC: Patient presents with: Recheck: Follow up HPI Michaela Brandt is a 84 year old female who presents today for ear lavage Has history of needing ears cleaned and has not had it done since sometime last year. Denies any ear pain, drainage, fever, chills, loss of hearing, or dizziness. Gets occasionally ringing in her ears but has had this for years. Was going to use debrox ear drops but this was never sent in and doesn't think she would want to use this anyway. REVIEW OF SYSTEMS See HPI PAST MEDICAL HISTORY Diagnosis Date Anxiety Depression Hypothyroidism Neurogenic bladder Thyroid disease PAST SURGICAL HISTORY Procedure Laterality Date HYSTERECTOMY HX SPINE SURGERY HX TOOTH EXTRACTION Wears upper and lower dentures ALLERGIES Patient has no known allergies. MEDICATIONS ascorbic acid (VITAMIN C ORAL) Take by mouth once daily. donepezil (ARICEPT) 10 mg tablet Take 1 tablet by mouth daily after breakfast. clonazePAM (KLONOPIN) 0.5 mg tablet Take 1 tablet by mouth three times a day as needed for anxiety for up to 30 days. Patient should start on January 31, 2025. clonazePAM (KLONOPIN) 0.5 mg tablet Take 1 tablet by mouth three times a day as needed for anxiety for up to 30 days. (Patient not taking: Reported on 02/04/2025) Catheter (SELF-CATHETER, FEMALE) 14 Fr misc Self catheterizes four times daily levothyroxine (EUTHYROX) 50 mcg tablet Take 1 tablet by mouth once daily. escitalopram oxalate (LEXAPRO) 20 mg tablet Take 1 tablet by mouth once daily. traZODone (DESYREL) 50 mg tablet Take 1 tablet by mouth daily at bedtime. FAMILY HISTORY Problem Relation Age of Onset Diabetes Mother Coronary Artery Disease Mother Hypertension Mother Prostate Cancer Father Breast Cancer Sister Hypertension Sister Hypertension Maternal Grandmother No Known Problems Maternal Grandfather No Known Problems Paternal Grandmother No Known Problems Paternal Grandfather Leukemia Daughter Hypertension Daughter Thyroid Daughter Social History Tobacco Use Smoking status: Never Smokeless tobacco: Never Vaping Use Vaping status: Never Used Substance Use Topics Alcohol use: Never Drug use: Never PHYSICAL EXAM BP 122/80 Pulse 74 Resp 16 Wt 57.6 kg (127 lb) LMP (LMP Unknown) SpO2 97% General Appearance: well appearing, in no acute distress, alert Eyes: conjunctiva pink and moist, no icterus, sclera white, non-injected Ears: external ears normal to inspection and palpation, canals clear, Left tympanic membrane normal with small amount of cerumen in canal. , Right tympanic membrane with cerumen impaction prior to irrigation and normal TM post irrigation Health maintenance reviewed with patient: Depression Screening Never done Anxiety Screening Never done DTaP,Tdap,Td Vaccine(1 - Tdap) Never done Bone Density Screening Never done Shingrix Vaccine(2 of 3) due on 01/14/2009 RSV Vaccine(1 - 1-dose 75+ series) Never done Pneumococcal Vaccine: 50+(2 of 2 - PCV) due on 02/28/2020 Influenza Vaccine(1) due on 07/20/2024 Covid-19 Vaccine(2023- season) due on 07/20/2024 Advance Directive Discussion due on 11/19/2024 Diabetes Screening due on 11/17/2027 DATA REVIEWED: No new labs ASSESSMENT/PLAN: 1. Impacted cerumen of right ear - ICD9: 380.4, ICD10: H61.21 Patient tolerated ear lavage well with relief of cerumen impaction Follow up for any concerns - AMBULATORY EAR LAVAGE/IRRIGATION Prescription instructions reviewed with patient as applicable. Potential red flag symptoms discussed with the patient. Reviewed appropriate action plan to take if red flag symptoms occur. Patient agreeable to treatment plan. Mariposa Salinas, ALEX.COMMUNITY OUTREACH WORKER Medical Decision Making: Problems: Minimal: Self-limited or minor problem Data: Unique test(s) ordered: 1 Risk: Low: Low risk from testing/treatment Medical Decision Making Level: [facility] - [facility] NoteHNO ID: [id number] Author: DILLAN SANTIAGO MD Service: ? Author Type: Physician Type: Progress Notes Filed: 02/04/2025 15:49 Note Text: Reason for Visit Follow up for MRI results for cognitive issues. HPI Michaela is a 84-year-old female, with a history of memory issues, presenting for a review of her MRI results and evaluation of current medications. She is accompanied by her daughter, who is providing additional history. Michaela has been experiencing memory difficulties, particularly with short-term memory, and has been on Aricept 5 mg for the past 30 days to enhance memory function. Her daughter reports that Michaela has not experienced any adverse reactions to the medication. Michaela is also taking trazodone and Lexapro at night, and clonazepam, which was initially prescribed TID PRN. Due to somnolence in the afternoon, the daughter has adjusted the clonazepam dosage to 0.25 mg in the morning and 0.5 mg at night over the past week. Michaela reports a sensation of plugged ears and has a history of regular ear cleanings. She also has a history of digestive issues, including occasional diarrhea, and is taking Maalox and Metamucil crackers to manage these symptoms. Michaela denies frequent diarrhea and attributes her digestive issues to not eating enough. Social History Tobacco Use Smoking status: Never Smokeless tobacco: Never Vaping Use Vaping status: Never Used Substance Use Topics Alcohol use: Never Drug use: Never Past medical history, appointments, medications, allergies reviewed. Pertinent Lab/Diagnostic Studies are reviewed and discussed today Current Outpatient Medications: ascorbic acid (VITAMIN C ORAL) clonazePAM (KLONOPIN) 0.5 mg tablet Catheter (SELF-CATHETER, FEMALE) 14 Fr misc levothyroxine (EUTHYROX) 50 mcg tablet escitalopram oxalate (LEXAPRO) 20 mg tablet traZODone (DESYREL) 50 mg tablet donepezil (ARICEPT) 10 mg tablet clonazePAM (KLONOPIN) 0.5 mg tablet Health Maintenance Depression Screening Anxiety Screening DTaP,Tdap,Td Vaccine(1 - Tdap) Bone Density Screening Shingrix Vaccine(2 of 3) RSV Vaccine(1 - 1-dose 75+ series) Pneumococcal Vaccine: 50+(2 of 2 - PCV) Influenza Vaccine(1) Covid-19 Vaccine( season) Advance Directive Discussion@ Review Of Systems Ears/Nose/Mouth/Throat: (+) hearing changes (plugged ears) Gastrointestinal: (+) diarrhea Neurological: (+) memory loss Physical Exam BP 131/80 Pulse 67 Wt 57.4 kg (126 lb 9.6 oz) LMP (LMP Unknown) SpO2 98% GENERAL: NAD, alert and oriented SKIN: unremarkable, no rash or skin lesions. HEAD: normocephalic EYES: PERRLA, EOMI, conjunctiva clear EARS: external ears normal, canals with cerumen, TM's partially obscured. NOSE/SINUSES: Nares normal. Septum midline. OROPHARYNX: lips, mucosa, and tongue normal, good dentition. No oral lesions noted. NECK: Supple, no lymphadenopathy, normal thyroid, no carotid bruits. LUNGS: Clear to auscultation bilaterally, no wheezes/rhonchi/rales. HEART: Regular rate and rhythm, no murmurs. No ectopy. EXTREMITIES: Normal, No deformities, No skin discoloration, No edema. NEURO: Awake, alert and oriented x3, cranial nerves II-XII grossly intact, normal gait, no involuntary motions Imaging: - MRI Assessment and Plan 1. 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 MRI reviewed, showing changes consistent with Alzheimer's disease. Patient exhibits short-term memory deficits. - Increased Donepezil to 10 mg daily, to be taken in the morning after breakfast to minimize potential side effects such as bradycardia and weight loss. - Provided education on the importance of adherence to medication regimen to enhance cognitive function. - Follow-up in 2 weeks to assess response to increased dosage. 2. Impacted cerumen, right ear (H61.21) Examination reveals non-impacted cerumen in the right ear, forming a pillar from top to bottom with open sides allowing air entry. Cerumen partially obstructing view of the tympanic membrane. - Initiated Debrox ear drops for 4 days, instructing patient to lie on the right side for 30 minutes post-application to facilitate cerumen softening. - Scheduled follow-up in 2 weeks for potential ear lavage if cerumen persists. 3. Insomnia due to mental disorder (F51.05) Currently managed with Trazodone and Clonazepam. Clonazepam dosage adjusted to 0.25 mg in the morning and 0.5 mg at night to aid sleep. - Continue current regimen of Trazodone and adjusted Clonazepam dosage. - Monitor for any changes in sleep patterns or adverse effects. 4. Generalized anxiety disorder (F41.1) Managed with Lexapro, taken at night. No recent exacerbations reported. - Continue Lexapro as prescribed. - Monitor for any signs of increased anxiety or adv (more content not included)...[facility]03-[facility] History of Present illness Narrative* Dillan Santiago MD - 02/04/2025 3:41 PM EDT Reason for Visit Follow up for MRI results for cognitive issues. MOLLY Jennings is a 84-year-old female, with a history of memory issues, presenting for a review of her MRI results and evaluation of current medications. She is accompanied by her daughter, who is providing additional history. Michaela has been experiencing memory difficulties, particularly with short-term memory, and has been on Aricept 5 mg for the past 30 days to enhance memory function. Her daughter reports that Michaela has not experienced any adverse reactions to the medication. Michaela is also taking trazodone and Lexapro atnight, and clonazepam, which was initially prescribed TID PRN. Due to somnolence in the afternoon, the daughter has adjusted the clonazepam dosage to 0.25 mg in the morning and 0.5 mg at night over the past week. Michaela reports a sensation of plugged ears and has a history of regular ear cleanings. She also hasa history of digestive issues, including occasional diarrhea, and is taking Maalox and Metamucil crackers to manage these symptoms. Michaela denies frequent diarrhea and attributes her digestive issues to not eating enough. Social History Tobacco Use Smoking status: Never Smokeless tobacco: Never Vaping Use Vaping status: Never Used Substance Use Topics Alcohol use: Never Drug use: Never Past medical history, appointments, medications, allergies reviewed. Pertinent Lab/Diagnostic Studies are reviewed and discussed today Current Outpatient Medications: ascorbic acid (VITAMIN C ORAL) clonazePAM (KLONOPIN) 0.5 mg tablet Catheter (SELF-CATHETER, FEMALE) 14 Fr misc levothyroxine (EUTHYROX) 50 mcg tablet escitalopram oxalate (LEXAPRO) 20 mg tablet traZODone (DESYREL) 50 mg tablet donepezil (ARICEPT) 10 mg tablet clonazePAM (KLONOPIN) 0.5 mg tablet Health Maintenance Depression Screening Anxiety Screening DTaP,Tdap,Td Vaccine(1 - Tdap) Bone Density Screening Shingrix Vaccine(2 of 3) RSV Vaccine(1 - 1-dose 75+ series) Pneumococcal Vaccine: 50+(2 of 2 - PCV) Influenza Vaccine(1) Covid-19 Vaccine( season) Advance Directive Discussion@ Review Of Systems Ears/Nose/Mouth/Throat: (+) hearing changes (plugged ears) Gastrointestinal: (+) diarrhea Neurological: (+) memory loss Physical Exam BP 131/80 Pulse 67 Wt 57.4 kg (126 lb 9.6 oz) LMP (LMP Unknown) SpO2 98% GENERAL: NAD, alert and oriented SKIN: unremarkable, no rash or skin lesions. HEAD: normocephalic EYES: PERRLA, EOMI, conjunctiva clear EARS: external ears normal, canals with cerumen, TM's partially obscured. NOSE/SINUSES: Nares normal. Septum midline. OROPHARYNX: lips, mucosa, and tongue normal, good dentition. No oral lesions noted. NECK: Supple, no lymphadenopathy, normal thyroid, no carotid bruits. LUNGS: Clear to auscultation bilaterally, no wheezes/rhonchi/rales. HEART: Regular rate and rhythm, no murmurs. No ectopy. EXTREMITIES: Normal, No deformities, No skin discoloration, No edema. NEURO: Awake, alert and oriented x3, cranial nerves II-XII grossly intact, normal gait, no involuntary motions Imaging: - MRI Assessment and Plan 1. 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 MRI reviewed, showing changes consistent with Alzheimer's disease. Patient exhibits short-term memory deficits. - Increased Donepezil to 10 mg daily, to be taken in the morning after breakfast to minimize potential side effects such as bradycardia and weight loss. - Provided education on the importance of adherence to medication regimen to enhance cognitive function. - Follow-up in 2 weeks to assess response to increased dosage. 2. Impacted cerumen, right ear (H61.21) Examination reveals non-impacted cerumen in the right ear, forming a pillar from top to bottom withopen sides allowing air entry. Cerumen partially obstructing view of the tympanic membrane. - Initiated Debrox ear drops for 4 days, instructing patient to lie on the right side for 30 minutes post-application to facilitate cerumen softening. - Scheduled follow-up in 2 weeks for potential ear lavage if cerumen persists. 3. Insomnia due to mental disorder (F51.05) Currently managed with Trazodone and Clonazepam. Clonazepam dosage adjusted to 0.25 mg in the morning and 0.5 mg at night to aid sleep. - Continue current regimen of Trazodone and adjusted Clonazepam dosage. - Monitor for any changes in sleep patterns or adverse effects. 4. Generalized anxiety disorder (F41.1) Managed with Lexapro, taken at night. No recent exacerbations reported. - Continue Lexapro as prescribed. - Monitor for any signs of increased anxiety or adverse reactions. Voice recognition software was used to compose this office note. Please excuse any unintended typographical errors. The patient consented to the use of ambient SERPs software for draft documentation of the visit consistent with [facility] Notice of Privacy Practices. Dillan Santiago MD documented in this encounterMartins Ferry [facility]03-19-2025 Instructions* Patient Instructions* Dillan Santiago MD - 02/04/2025 11:58 AM EDT We discussed your memory concerns and medications: - You are currently taking Aricept (donepezil) 5 mg in the evening. I am increasing your dose to 10mg daily to help enhance your memory. Please take two 5 mg tablets in the morning instead of the evening, as this will provide the best benefit during the day. Take the medication after breakfast to avoid potential stomach upset. This prescription has been sent to your pharmacy with 90 tablets and 3 refills. - Continue taking your other medications as currently prescribed: - Trazodone at night. - Lexapro at night. - Clonazepam: Continue with the current regimen of half a tablet in the morning and a full tablet at night. We discussed your ear concerns: - You have wax buildup in both ears. I recommend using Debrox ear drops: - Apply the drops to the right ear for 4 nights before bed. Lie on your left side for 30 minutes after applying the drops to allow them to work. - After completing treatment for the right ear, repeat the same process for the left ear for 4 nights. - If the wax does not clear after this treatment, we will perform an ear lavage (flushing) at your follow-up visit in 2 weeks. We discussed your digestive health: - You mentioned occasional digestive issues. Please continue eating a balanced diet and consider incorporating fiber, such as Metamucil crackers, into your daily routine to support digestion. Follow-Up: - Please schedule a follow-up visit in 2 weeks to reassess your ears and determine if further treatment, such as ear lavage, is needed. - Contact our office if you experience any side effects from your medications, such as diarrhea, orif you have any new or worsening symptoms. Thank you for your continued efforts in managing your health. documented in this encounterMartins [facility]erry [facility]03-19-2025 Telephone encounter Note * Telephone Encounter - Mckenzie Lombardo LPN - 02/04/2025 10:47 AM EDT Patient MyChart message requesting the following refill Refill(s) Requested: Requested Prescriptions Pending Prescriptions Disp Refills donepezil (ARICEPT) 5 mg tablet 30 tablet 11 Sig: Take 1 tablet by mouth daily at bedtime. ALLERGIES No Known Allergies (home) [phone] (cell) Last Office Visit Date: 12/10/2024 Last [facility] Visit: Visit date not found Future Appointment: 02/04/2025 The patients preferred pharmacy has been captured for this encounter? yes Request is for script(s) to be escript to pharmacy. Mckenzie Lombardo LPN [facility]03-19-2025 Miscellaneous Notes* Telephone Encounter - Mckenzie Lombardo LPN - 02/04/2025 10:47 AM EDT Patient MyChart message requesting the following refill Refill(s) Requested: Requested Prescriptions Pending Prescriptions Disp Refills donepezil (ARICEPT) 5 mg tablet 30 tablet 11 Sig: Take 1 tablet by mouth daily at bedtime. ALLERGIES No Known Allergies (home) [phone] (cell) Last Office Visit Date: 12/10/2024 Last [facility] Visit: Visit date not found Future Appointment: 02/04/2025 The patients preferred pharmacy has been captured for this encounter? yes Request is for script(s) to be escript to pharmacy. Mckenzie Lombardo LPN documented in this encounterMartins Ferry Hospital03-13-2025 Telephone encounter Note * Telephone Encounter - Michaela Davila MA - 01/29/2025 8:47 AM EDT Please assist patient in scheduling geriatric follow up to review MRI results per Dr Santiago. [facility]03-13-2025 Miscellaneous Notes* Telephone Encounter - Michaela Davila MA - 01/29/2025 8:47 AM EDT Please assist patient in scheduling geriatric follow up to review MRI results per Dr Santiago. * Telephone Encounter - Michaela Davila MA - 01/29/2025 8:45 AM EDT ----- Message from Dillan Santiago MD sent at 01/28/2025 4:42 PM EDT ----- Please asked patient to make an appointment with me tomorrow or next week to follow-up on her MRI. You could cancel the Mariposa older appointment that is upcoming and just keeps appointment with me. Regards, Dillan Santiago MD documented in this encounterMartins Ferry Hospital03-13-2025 Telephone encounter Note * Telephone Encounter - Michaela Davila MA - 01/29/2025 8:45 AM EDT ----- Message from Dillan Santiago MD sent at 01/28/2025 4:42 PM EDT ----- Please asked patient to make an appointment with me tomorrow or next week to follow-up on her MRI. You could cancel the Mariposa older appointment that is upcoming and just keeps appointment with me. Regards, Dillan Santiago MD [facility]03-10-2025 Miscellaneous Notes* Telephone Encounter - Michaela Davila MA - 01/26/2025 2:39 PM EDT Please see patient directions for use. Patient will run out of medication before fill date. documented in this encounterMartins Ferry Hospital03-10-2025 Telephone encounter Note * Telephone Encounter - Michaela Davila MA - 01/26/2025 2:39 PM EDT Please see patient directions for use. Patient will run out of medication before fill date. [facility]03-10-[facility] Telephone encounter Note* Telephone Encounter - Kecia Red RN - 01/26/2025 11:13 AM EDT Daughter (Maribeth) calls to ask if provider could send in a small supply of clonazepam to get patient to next refill of clonazepam on 01/31/2025. Patient is completely out. Patient is currently taking it twice daily and patient is completely out of medication. She has completley cut out mid-afternoon dose and once she receives new prescription plans to decrease am dose by 1/2 but patient has to do in very small steps to avoid causing increase in anxiety. Pended per request. Please review and advise, Kecia Red RN [facility]03-10-2025 Miscellaneous Notes* Telephone Encounter - Kecia Red RN - 01/26/2025 11:13 AM EDT Daughter (Maribeth) calls to ask if provider could send in a small supply of clonazepam to get patient to next refill of clonazepam on 01/31/2025. Patient is completely out. Patient is currently taking it twice daily and patient is completely out of medication. She has completley cut out mid-afternoon dose and once she receives new prescription plans to decrease am dose by 1/2 but patient has to do in very small steps to avoid causing increase in anxiety. Pended per request. Please review and advise, Kecia Red RN documented in this encounterMartins Ferry Hospital03-08-2025 History of Present illness Narrative* Manisha Joseph RT(R) - 01/24/2025 12:30 PM ESTSummary: MRI Radiology Service Progress Note PATIENT NAME: Michaela Brandt DATE OF SERVICE: January 24, 2025 TIME: 1:31 PM PATIENT IDENTITY VERIFICATION COMPLETED USING TWO (2) IDENTIFIERS: Name and Date of confirmedby patient verbally. FALL SCREENING: Has the patient had 2 falls in the last year or 1 fall with injury or currently using an Ambulatory Assistive Device (Walker, Cane, Wheelchair, Crutches, etc.)? No PATIENT GENDER DATA: Assigned female at . status: : No status:NO. PATIENT RELEVANT IMPLANT DATA REVIEWED: Yes PATIENT PRESENTS WITH AN IMPLANTABLE OR ATTACHED DEVULCANIZER OPERATOR: No RADIOLOGY DEPARTMENT: MR; Exam(s) Completed: Head: Routine Brain (QUANT) PERIPHERAL IV DATA: Not applicable SIGNED BY: ROGELIO Osborne)(MR) January 24, 2025 1:31 PM documented in this encounterMartins Ferry Hospital03-08-2025 NoteHNO ID: [id number] Author: MANISHA JOSEPH RT(R) Service: Radiology Author Type: Technologist Type: Progress Notes Filed: 01/24/2025 13:32 Note Text: Summary: MRI Radiology Service Progress Note PATIENT NAME: Michaela Brandt DATE OF SERVICE: January 24, 2025 TIME: 1:31 PM PATIENT IDENTITY VERIFICATION COMPLETED USING TWO (2) IDENTIFIERS: Name and Date of confirmed by patient verbally. FALL SCREENING: Has the patient had 2 falls in the last year or 1 fall with injury or currently using an Ambulatory Assistive Device (Walker, Cane, Wheelchair, Crutches, etc.)? No PATIENT GENDER DATA: Assigned female at . status: : No status: NO. PATIENT RELEVANT IMPLANT DATA REVIEWED: Yes PATIENT PRESENTS WITH AN IMPLANTABLE OR ATTACHED DEVULCANIZER OPERATOR: No RADIOLOGY DEPARTMENT: MR; Exam(s) Completed: Head: Routine Brain (QUANT) PERIPHERAL IV DATA: Not applicable SIGNED BY: MARIANO OsborneR)(MR) January 24, 2025 1:31 PM[facility]03-[facility]25 Telephone encounter Note* Telephone Encounter - Mariposa Salinas APRN.CNP - 01/22/2025 3:13 PM EST [facility] website checked and validated. All prescriptions have been APPROPRIATELY filled. No suspiciousactivity was identified. 01/22/2025 by Mariposa Salinas APRN.CNP [facility]03-06-2025 Miscellaneous Notes* Telephone Encounter - Mariposa Salinas APRN.CNP - 01/22/2025 3:13 PM EST PDMP website checked and validated. All prescriptions have been APPROPRIATELY filled. No suspiciousactivity was identified. 01/22/2025 by Mariposa Salinas APRN.ARIEL * Telephone Encounter - Radha Haro LPN - 01/21/2025 4:42 PM EST Patient has been identified by name and date of : Yes Patient phones for refill(s): Requested Prescriptions Pending Prescriptions Disp Refills clonazePAM (KLONOPIN) 0.5 mg tablet 45 tablet 0 Sig: Take 1 tablet by mouth three times a day as needed for anxiety for up to 30 days. Patient should start on January 31, 2025. Date of last office visit in primary care: 11/05/2024 Date of next office visit in primary care: 02/04/2025 Please advise. Thank you. Radha Haro LPN. documented in this encounter[facility] Telephone encounter Note * Telephone Encounter - Radha Haro LPN - 01/21/2025 4:42 PM EST Patient has been identified by name and date of : Yes Patient phones for refill(s): Requested Prescriptions Pending Prescriptions Disp Refills clonazePAM (KLONOPIN) 0.5 mg tablet 45 tablet 0 Sig: Take 1 tablet by mouth three times a day as needed for anxiety for up to 30 days. Patient should start on January 31, 2025. Date of last office visit in primary care: 11/05/2024 Date of next office visit in primary care: 02/04/2025 Please advise. Thank you. Radha Haro LPN. [facility]02-13-2025 Telephone encounter Note* Telephone Encounter - Jada Dela Cruz LPN - 01/01/2025 8:02 AM EST The patient has been identified by name and date of : Yes Caregiver verified no other encounters exist for this prescription request: Yes Caregiver confirmed with patient/requestor that no other refills are due, in the near future, with this provider at this time: Yes The last office visit in the department: 11/05/2024 Does the patient have a future office visit with this provider/department: Yes 02/04/2025 Requested Prescriptions Pending Prescriptions Disp Refills clonazePAM (KLONOPIN) 0.5 mg tablet 45 tablet 0 Sig: Take 1 tablet by mouth three times a day as needed for anxiety for up to 30 days. Jada Dela Cruz LPN January 01, 2025 8:02 AM [facility]02-13[facility] Miscellaneous Notes* Telephone Encounter - Jada Dela Cruz LPN - 01/01/2025 8:02 AM EST The patient has been identified by name and date of : Yes Caregiver verified no other encounters exist for this prescription request: Yes Caregiver confirmed with patient/requestor that no other refills are due, in the near future, with this provider at this time: Yes The last office visit in the department: 11/05/2024 Does the patient have a future office visit with this provider/department: Yes 02/04/2025 Requested Prescriptions Pending Prescriptions Disp Refills clonazePAM (KLONOPIN) 0.5 mg tablet 45 tablet 0 Sig: Take 1 tablet by mouth three times a day as needed for anxiety for up to 30 days. Jada Dela Cruz LPN January 01, 2025 8:02 AM documented in this encounterMartins Ferry [facility]02-06-2025 Telephone encounter Note * Telephone Encounter - Nusrat Crespo LPN - 12/25/2024 12:50 PM EST Received one lab from [facility] via [employer]. Uploaded to [employer] via [employer]. Nusrat Cresop LPN [facility]02-06-2025 Miscellaneous Notes* Telephone Encounter - Nusrat Crespo LPN - 12/25/2024 12:50 PM EST Received one lab from [facility] via [employer]. Uploaded to [employer] via [employer]. Nusrat Crespo LPN * Telephone Encounter - Nusrat Crespo LPN - 12/23/2024 4:45 PM EST Faxed signed Authorization to Disclose Health Information [facility] to office of Dr. Ovalle for urological records. Nusrat Crespo LPN documented in this encounterMartins Ferry Hospital02-04-2025 Telephone encounter Note * Telephone Encounter - Nusrat Crespo LPN - 12/23/2024 4:45 PM EST Faxed signed Authorization to Disclose Health Information [facility] to office of Dr. Ovalle for urological records. Nusrat Crespo LPN [facility]02-04-[facility]25 NoteHNO ID: [id number] Author: TOM BALTAZAR PA-C Service: ? Author Type: Physician Colloid Mill Operator Type: Progress Notes Filed: 12/23/2024 15:21 Note Text: [facility] NEW PATIENT CLINIC NOTE (F) SERVICE DATE: December 23, 2024 NAME: Michaela Brandt GENDER: female CHIEF COMPLAINT: History of Urinary Retention establishing with Urology HISTORY OF PRESENT ILLNESS: Michaela Brandt is a 84 year old female new patient here for History of Urinary Retention establishing with Urology since moving to the area The patient reports she has been using [facility] 4 times per day and currently has catheters and will call when she needs ne supply Discussed asymptomatic Bacteruria is likely when getting urine sample with [facility]IC Instructed the patient to CALL office to get a URINE CULTURE order placed if having UTI symptoms, instead of going to Urgent Care or ER As long as I have seen the patient within 1 year, understanding NO antibiotics will be given until the culture is final If patient has a FEVER > 100.1, we will send her to ER that is not common for uncomplicated UTI LUTS: DYSURIA: no URGENCY: No FREQUENCY:5 per day NOCTURIA: 1 per night STRAINING TO VOID: No EMPTIES COMPLETELY: Yes UTI: No GROSS HEMATURIA: no UA DIPSTICK POSITIVE ONLY: yes LABS: No results found for: PSA Creatinine Date Value Ref Range Status 11/17/2024 0.95 0.58 - 0.96 mg/dL Final MEDICATIONS: Catheter (SELF-CATHETER, FEMALE) 14 Fr misc Self catheterizes four times daily clonazePAM (KLONOPIN) 0.5 mg tablet Take 1 tablet by mouth three times a day as needed for anxiety for up to 30 days. levothyroxine (EUTHYROX) 50 mcg tablet Take 1 tablet by mouth once daily. escitalopram oxalate (LEXAPRO) 20 mg tablet Take 1 tablet by mouth once daily. traZODone (DESYREL) 50 mg tablet Take 1 tablet by mouth daily at bedtime. PAST MEDICAL HISTORY: PAST MEDICAL HISTORY Diagnosis Date Anxiety Depression Hypothyroidism Neurogenic bladder Thyroid disease PAST SURGICAL HISTORY: PAST SURGICAL HISTORY Procedure Laterality Date HYSTERECTOMY HX SPINE SURGERY HX TOOTH EXTRACTION Wears upper and lower dentures FAMILY HISTORY: FAMILY HISTORY Problem Relation Age of Onset Diabetes Mother Coronary Artery Disease Mother Hypertension Mother Prostate Cancer Father Breast Cancer Sister Hypertension Sister Hypertension Maternal Grandmother No Known Problems Maternal Grandfather No Known Problems Paternal Grandmother No Known Problems Paternal Grandfather Leukemia Daughter Hypertension Daughter Thyroid Daughter SOCIAL HISTORY: Social Connections: Not on file REVIEW OF SYSTEMS: GENERAL: No fever, chills, weight loss, or fatigue. ENMT: Negative CARDIOVASCULAR:NO CHEST PAIN, PALPITATIONS, ANKLE EDEMA RESPIRATORY: No chronic cough, wheezing, dyspnea, hemoptysis. GENITOURINARY: SEE HPI MUSCULOSKELETAL:NO CHRONIC BACK PAIN, ARTHRITIS, CHRONIC NECK PAIN SKIN: NO VARICOSE VEINS, RASH, ABNORMAL ITCHING HEME/LYMPH/IMMUNE:Negative for prolonged bleeding, bruising easily or swollen nodes NEUROLOGICAL: NO HEADACHES, NUMBNESS, SEIZURES, STROKE DIABETES: No All other systems reviewed and are negative PHYSICAL EXAMINATION: Blood pressure 144/64, pulse 80, temperature 36.3 ?C (97.4 ?F), temperature source Temporal, resp. rate 12, weight 59.9 kg (132 lb), SpO2 97%. GENERAL: WNL nutrition, no deformities, healthy appearing NEURO: Awake, alert and oriented x 3 and Normal gait PSYCH: No signs of depression, anxiety, or agitation ENMT (Ear, Nose, Mouth, Throat): No masses, adenopathy, icterus. Thyroid nonpalpable RESP: NL effort, no retractions or purse-lip breathing. CV: No extremity swelling, varices, edema, pallor, erythema GASTROINTESTINAL: Soft, nontender, nondistended, no masses. HERNIAS: None SKIN: No rash, lesions No palpable lymphadenopathy MUSCULOSKELETAL: Extremities normal. No deformities, edema, clubbing or skin discoloration. PROBLEM LIST REVIEW: Yes LABS: Results for orders placed or performed in visit on 12/23/24 UA DIP, URINE (POC) Result Value Ref Range GLUCOSE UA (POCT) Negative Negative mg/dL BILIRUBIN UA (POCT) Negative Negative KETONE UA (POCT) Negative Negative mg/dL SPECIFIC GRAVITY UA (POCT) >=1.030 1.005 - 1.030 HEMOGLOBIN/BLOOD UA (POCT) Trace-intact (A) Negative PH UA (POCT) 5.0 4.5 - 8.0 PROTEIN UA (POCT) Negative Negative mg/dL UROBILINOGEN UA (POCT) 0.2 Normal E.U./dL NITRITE UA (POCT) Negative Negative LEUKOCYTES UA (POCT) Trace (A) Negative COLOR UA (POCT) Yellow CLARITY UA (POCT) Clear PROCEDURES: IMAGING: ASSESSMENT/PLAN: 1. Self-catheterizes urinary bladder - ICD9: V49.89, ICD10: Z78.9 (primary diagnosis) 2. Unable to void - ICD9: 788.99, ICD10: R33.9 3. Urinary problem - ICD9: V47.4, ICD10: R39.89 > Uses CIC 4 times per day, and has catheters Chronic stab (more content not included)...[facility]02-04-2025 History of Present illness Narrative* Tom Baltazar PA-C - 12/23/2024 10:59 AM EST Images from the original note were not included. [facility] [place] NEW PATIENT CLINIC NOTE (F) SERVICE DATE: December 23, 2024 NAME: Michaela Brandt GENDER: female CHIEF COMPLAINT: History of Urinary Retention establishing with Urology HISTORY OF PRESENT ILLNESS: Michaela Brandt is a 84 year old female new patient here for History of Urinary Retention establishing with Urology since moving to the area The patient reports she has been using [facility]IC 4 times per day and currently has catheters and will call when she needs ne supply Discussed asymptomatic Bacteruria is likely when getting urine sample with CIC Instructed the patient to CALL office to get a URINE CULTURE order placed if having UTI symptoms, instead of going to Urgent Care or ER As long as I have seen the patient within 1 year, understanding NO antibiotics will be given until the culture is final If patient has a FEVER > 100.1, we will send her to ER that is not common for uncomplicated UTI LUTS: DYSURIA: no URGENCY: No FREQUENCY:5 per day NOCTURIA: 1 per night STRAINING TO VOID: No EMPTIES COMPLETELY: Yes UTI: No GROSS HEMATURIA: no UA DIPSTICK POSITIVE ONLY: yes LABS: No results found for: PSA Creatinine Date Value Ref Range Status 11/17/2024 0.95 0.58 - 0.96 mg/dL Final MEDICATIONS: Catheter (SELF-CATHETER, FEMALE) 14 Fr misc Self catheterizes four times daily clonazePAM (KLONOPIN) 0.5 mg tablet Take 1 tablet by mouth three times a day as needed for anxiety for up to 30 days. levothyroxine (EUTHYROX) 50 mcg tablet Take 1 tablet by mouth once daily. escitalopram oxalate (LEXAPRO) 20 mg tablet Take 1 tablet by mouth once daily. traZODone (DESYREL) 50 mg tablet Take 1 tablet by mouth daily at bedtime. PAST MEDICAL HISTORY: PAST MEDICAL HISTORY Diagnosis Date Anxiety Depression Hypothyroidism Neurogenic bladder Thyroid disease PAST SURGICAL HISTORY: PAST SURGICAL HISTORY Procedure Laterality Date HYSTERECTOMY HX SPINE SURGERY HX TOOTH EXTRACTION Wears upper and lower dentures FAMILY HISTORY: FAMILY HISTORY Problem Relation Age of Onset Diabetes Mother Coronary Artery Disease Mother Hypertension Mother Prostate Cancer Father Breast Cancer Sister Hypertension Sister Hypertension Maternal Grandmother No Known Problems Maternal Grandfather No Known Problems Paternal Grandmother No Known Problems Paternal Grandfather Leukemia Daughter Hypertension Daughter Thyroid Daughter SOCIAL HISTORY: Social Connections: Not on file REVIEW OF SYSTEMS: GENERAL: No fever, chills, weight loss, or fatigue. ENMT: Negative CARDIOVASCULAR:NO CHEST PAIN, PALPITATIONS, ANKLE EDEMA RESPIRATORY: No chronic cough, wheezing, dyspnea, hemoptysis. GENITOURINARY: SEE HPI MUSCULOSKELETAL:NO CHRONIC BACK PAIN, ARTHRITIS, CHRONIC NECK PAIN SKIN: NO VARICOSE VEINS, RASH, ABNORMAL ITCHING HEME/LYMPH/IMMUNE:Negative for prolonged bleeding, bruising easily or swollen nodes NEUROLOGICAL: NO HEADACHES, NUMBNESS, SEIZURES, STROKE DIABETES: No All other systems reviewed and are negative PHYSICAL EXAMINATION: Blood pressure 144/64, pulse 80, temperature 36.3 C (97.4 F), temperature source Temporal, resp. rate 12, weight 59.9 kg (132 lb), SpO2 97%. GENERAL: WNL nutrition, no deformities, healthy appearing NEURO: Awake, alert and oriented x 3 and Normal gait PSYCH: No signs of depression, anxiety, or agitation ENMT (Ear, Nose, Mouth, Throat): No masses, adenopathy, icterus. Thyroid nonpalpable RESP: NL effort, no retractions or purse-lip breathing. CV: No extremity swelling, varices, edema, pallor, erythema GASTROINTESTINAL: Soft, nontender, nondistended, no masses. HERNIAS: None SKIN: No rash, lesions No palpable lymphadenopathy MUSCULOSKELETAL: Extremities normal. No deformities, edema, clubbing or skin discoloration. PROBLEM LIST REVIEW: Yes LABS: Results for orders placed or performed in visit on 12/23/24 UA DIP, URINE (POC) Result Value Ref Range GLUCOSE UA (POCT) Negative Negative mg/dL BILIRUBIN UA (POCT) Negative Negative KETONE UA (POCT) Negative Negative mg/dL SPECIFIC GRAVITY UA (POCT) >=1.030 1.005 - 1.030 HEMOGLOBIN/BLOOD UA (POCT) Trace-intact (A) Negative PH UA (POCT) 5.0 4.5 - 8.0 PROTEIN UA (POCT) Negative Negative mg/dL UROBILINOGEN UA (POCT) 0.2 Normal E.U./dL NITRITE UA (POCT) Negative Negative LEUKOCYTES UA (POCT) Trace (A) Negative COLOR UA (POCT) Yellow CLARITY UA (POCT) Clear PROCEDURES: IMAGING: ASSESSMENT/PLAN: 1. Self-catheterizes urinary bladder - ICD9: V49.89, ICD10: Z78.9 (primary diagnosis) 2. Unable to void - ICD9: 788.99, ICD10: R33.9 3. Urinary problem - ICD9: V47.4, ICD10: R39.89 > Uses CIC 4 times per day, and has catheters Chronic stable, > 1 year Appt w/ VADIM Wallace MT, PA-C for annual follow-up and refills. VADIM Stanford MT, PA-C documented in this encounterMart[facility]01-28-2025 Miscellaneous Notes* Telephone Encounter - Colten Greer MA - 12/16/2024 2:33 PM EST Spoke with Giovanni at [facility]. Once he has seen the patient and admitted into their program, he will be faxing forms for Dr. Santaigo to sign. Patient's daughter informed and we will await forms. Colten Greer MA * Telephone Encounter - Mckenzie Lombardo LPN - 12/12/2024 2:28 PM EST Called [facility] for 2nd time, left message with Intake. To call office back [facility]# [phone] Mckenzie Lombardo LPN December 12, 2024 2:29 PM * Telephone Encounter - Colten Greer MA - 12/10/2024 2:10 PM EST Patient's daughter states that [facility] needs something from Dr. Santiago that its ok for patient to attend but not sure what exactly is needed. [facility] office to see what information they need from us. Colten Greer MA documented in this encounterMartins Ferry Hospital01-28-2025 Telephone encounter Note * Telephone Encounter - Colten Greer MA - 12/16/2024 2:33 PM EST Spoke with Giovanni at [facility]. Once he has seen the patient and admitted into their program, he will be faxing forms for Dr. Santiago to sign. Patient's daughter informed and we will await forms. Colten Greer MA [facility]01-27-2025 Telephone encounter Note* Telephone Encounter - Mariposa Salinas APRN.CNP - 12/15/2024 7:14 AM EST PDMP website checked and validated. All prescriptions have been APPROPRIATELY filled. No suspiciousactivity was identified. 12/15/2024 by Mariposa Salinas APRN.CNP [facility]01-27-2025 Miscellaneous Notes* Telephone Encounter - Mariposa Salinas APRN.CNP - 12/15/2024 7:14 AM EST PDMP website checked and validated. All prescriptions have been APPROPRIATELY filled. No suspiciousactivity was identified. 12/15/2024 by Mariposa Salinas APRN.CNP * Telephone Encounter - Mckenzie Lombardo LPN - 12/12/2024 3:16 PM EST Patient [employer] message requesting the following refill Refill(s) Requested: Requested Prescriptions Pending Prescriptions Disp Refills clonazePAM (KLONOPIN) 0.5 mg tablet 45 tablet 0 Sig: Take 1 tablet by mouth three times a day as needed for anxiety for up to 30 days. ALLERGIES No Known Allergies (home) [phone] (cell) Last Office Visit Date: 11/05/2024 Last Distance Health Visit: Visit date not found Future Appointment: 02/04/2025 The patients preferred pharmacy has been captured for this encounter? yes Request is for script(s) to be escript to pharmacy. Mckenzie Lombardo LPN documented in this encounterMartins Ferry Hospital01-24-2025 Telephone encounter Note * Telephone Encounter - Mckenzie Lombardo LPN - 12/12/2024 3:16 PM EST Patient [employer] message requesting the following refill Refill(s) Requested: Requested Prescriptions Pending Prescriptions Disp Refills clonazePAM (KLONOPIN) 0.5 mg tablet 45 tablet 0 Sig: Take 1 tablet by mouth three times a day as needed for anxiety for up to 30 days. ALLERGIES No Known Allergies (home) [phone] (cell) Last Office Visit Date: 11/05/2024 Last Distance Health Visit: Visit date not found Future Appointment: 02/04/2025 The patients preferred pharmacy has been captured for this encounter? yes Request is for script(s) to be escript to pharmacy. Mckenzie Lombardo LPN [facility]01-24-2025 Telephone encounter Note* Telephone Encounter - Mckenzie Lombardo LPN - 12/12/2024 2:28 PM EST Called [facility] for [facility]nd time, left message with Intake. To call office back [facility]# [phone] Mckenzie Lombardo LPN December 12, 2024 2:29 PM [facility]01-22-2025 Telephone encounter Note* Telephone Encounter - Colten Greer MA - 12/10/2024 2:10 PM EST Patient's daughter states that [facility] needs something from Dr. Santiago that its ok for patient to attend but not sure what exactly is needed. Phone call to [facility] for intake to contact our office to see what information they need from us. Colten Greer MA [facility]01-22-2025 NoteHNO ID: [id number] Author: COLTEN GREER MA Service: ? Author Type: Procurement Consultant Type: Progress Notes Filed: 12/10/2024 17:10 Note Text: Patient presents for geriatric consult with daughter Teodora. Rooming intake completed with patient and Teodora to ensure accuracy. PHQ-9 and MOCA reviewed with patient and entered into questionnaires. Colten Greer [facility]01-22-2025 History of Present illness Narrative* Colten Greer MA - 12/10/2024 1:11 PM EST Patient presents for geriatric consult with daughter Teodora. Rooming intake completed with patient and Teodora to ensure accuracy. PHQ-9 and MOCA reviewed with patient and entered into questionnaires. Colten Greer MA * Dillan Santiago MD - 12/10/2024 12:54 PM EST [facility] Initial Consult Michaela Brandt is a 84 year old year old female who comes for Comprehensive Geriatric Assessment. Pt accompanied by: jossie Stahl Caregivers involved in care: HPI: This is a 84-year-old woman with a past medical history of Hypothyroidism, chronic urinary retention which needs self cath, 4 times daily, with insomnia and anxiety. She has been having memory issues for a while, and has been getting worse. She moved recently from her daughters house to be over seen by another daughter Maribeth. The plan is for her to be rentingfor a while and try to see if she can manage on her own. They are looking into [facility]. Have cameras installed so they can watch her. She needs her pill boxes to be arranged. Does keep overall knowledge of her finances. In our interview today patient is not able to give specifics, she keeps going back to 30 years ago and talks about things in the past all the time, circumventing our conversations to what she knows and feels. Just moved to [place] where her daughter lives after needing to sell her 3 story home to allow her to continue to live independently. Last PCP was Ludin Richey in the [place] area. Is now in her own 1 level apartment. Needs assistance with medication dispensing and is needing support to drive herto appointments and to the store. Is hoping to go to [facility] a few times a week as well. Uses a cane for walking. Last fall was in the last year. Feels unsteady and off balance but no new weakness. Hypothyroidism: Takes medication as ordered. Denies any abnormal change in weight or energy. Previous back surgery in 2009. Has needed to self catheterize for years as a result of this. Is susceptible to UTIs and followed with a urologist in [place]. Denies abdominal pain, fever, chills, or dark/foul smelling urine. Any Family History of dementia? None that they know of. Are you or your spouse a ? Yes Alzheimer Questionnaire Long-term Memory: Difficulty remembering distant events from the past like childhood, previous employment, wedding: NO Behavioral/personality: Withdrawn/Depressed: NO Crying spells: NO Anxious: NO History of aggression: NO History of irritability: YES Apathy:NO Recent changes in weight or appetite: NO Alcohol or Drug use: NO Smoking? NO Sleep: Do you snore loudly (louder than talking or loud enough to be heard through closed doors)? YES Do you often feel tired, fatigued, or sleepy during daytime? NO Has anyone observed you stop breathing during your sleep? NO Are you restless when you sleep at night? NO Do you have problems falling a sleep? NO Do you have problems staying a sleep? NO Psychosis: Hallucinations or delusions: NO Suicidal or homicidal ideations: NO Obsessions, compulsions, or hoarding: NO Safety: Does pt know his/her address? NO What would you do if there was a fire? Took a while to say but she said get to a safe exit How would you call for help? Yes, did not know the number Does he/she know 911? YES Are there any firearms in the home? NO If yes are they in a secure location? No Social History: Primary language: Tongan Marital Status: Living situation: Home w/ Family Socially engaged? (participates in activities such as clubs, restorationist, community center, sports, games, visiting friends/relatives, etc?): YES once a week she goes out. Caregiver [place] and Stress Are your feeling overwhelmed? NO Do you have concerns about your own health? NO Are you neglecting your own needs? NO Do you have financial concerns? NO Do your fear loss of employment? NO Do you have concerns about verbal/physical abuse? NO Do you feel that you are still capable of taking care of your relative? NO Are you willing to continue being in the caregiver role? NO B-ADLs: (I=independent,A=assistance,D=dependent) ?Bathing: A, some over sight. Dressing: A, some times she needs tips on weather Toileting: I, Transferring:I, using a walker at this time Continence: I, Feeding: I, I-ADLs: Ability to use phone: I, Shopping: A, Cooking: superficial cooking. Housekeeping: A, Laundry: D, Transportation:D, Medications: {I, Handle Finances: A. PMHx: PAST MEDICAL HISTORY Diagnosis Date Anxiety Depression Hypothyroidism Neurogenic bladder Thyroid disease PSHx: PAST SURGICAL HISTORY Procedure Laterality Date HYSTERECTOMY HX SPINE SURGERY HX Home Meds: Prior to Admission medications : Medication levothyroxine (EUTHYROX) 50 mcg tablet, Sig Take 1 tablet by mouth once daily., Start Date 11/06/24, End Date , Taking? Yes, Authorizing Provider Mariposa Salinas APRN.COMMUNITY OUTREACH WORKER Medication escitalopram oxalate (LEXAPRO) 20 mg tablet, Sig Take 1 tablet by mouth once daily., Start Date 11/05/24, End Date , Taking? Yes, Authorizing Provider Mariposa Salinas APRN.COMMUNITY OUTREACH WORKER Medication traZODone (DESYREL) 50 mg tablet, Sig Take 1 tablet by mouth daily at bedtime., Start Date 11/05/24, End Date , Taking? Yes, Authorizing Provider Mariposa Salinas APRN.COMMUNITY OUTREACH WORKER Medication clonazePAM (KLONOPIN) 0.5 mg tablet, Sig Take 1 tablet by mouth three times a day as needed for anxiety for up to 30 days., Start Date 11/05/24, End Date 12/05/24, Taking? , Authorizing Provider Mariposa Salinas APRN.COMMUNITY OUTREACH WORKER Other OTC med/supplements: None Medication Review: - ANY HIGH RISK MEDICATIONS (STOPP CRITERIA): NO ALLERGIES No Known Allergies Review of Systems Difficulty chew/swallow: No Pain: No Tremor: No Incontinence - During the last 3 months did you leak urine? NO Constipation/Change in bowel habits: NO Vision No vision problems reported Follows with field clerk:YES Hearing - Hearing aid : Denies any problems Falls: .: Falls in the last 12 months: None. If + falls: Physical Exam: General: Well-nourished, kempt Ambulatory: without assistance Mobility Aid: None Head: Normocephalic Eyes: conjunctiva/corneas normal, EOMI Ears: R TM - clear with good landmarks, nl light reflex, L TM - clear with good landmarks, nl lightreflex Nose: clear Oropharynx: moist without lesions, teeth in good repair Neck: supple and no adenopathy Cardio: regular rate and rhythm Pulmonary: Lungs clear to auscultation bilaterally Extremities: Extremities normal. No deformities, edema, or skin discoloration. Musculoskeletal: Normal Gait Neuro:Deep Tendon reflexes :2/4 , Both Gait: Unsteadiness: yes Shuffling: NO Tremors: NO Slowness: yes [place] Cognitive Exam (MOCA): CDR Dementia Scale 1) Subjective Memory Loss: NO 2) Measurable Memory Loss: NO 3) IADLs: NO 4) BADLs: NO Driving Safely: Yes > 50% 6) Medications: No Level: CDR 0 Depression Screening/Evaluation: Labs: None available today Brain Imaging:None available today Assessment and Plan: I. Medical /Mental Status/Decision Making Capacity 1-Mentation # Subjective memory loss with measurable memory loss with MOCA score of 30 ... Patient does have functional impairment in her instrumental activities of daily living . 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 She is on klonopin for the past 3 years after the of her daughter and this could be contributing to her issues a little CDR 2 FAST 04/25. Patient and family are looking for preservation of function. Plan: We discussed trial of Aricept, they will think about it. Ordered MRI for posterity. She scored in the moderate to severe range and I do not think that she will need close supervision and assistance for baths, food and medication,. Encouraged to use the cameras that are used to supervise her and to monitor her weight. Vit b12 and tsh are In good range 2-Mobility -- She is on the walker and is asked to continue the same Plan 3-Medications and chronic medical conditions She is on lexapro for anxiety and depression, on adequate doses of levothyroxine and trazodone at 50 to help her sleep at night time. Plan 4- Matters Most - She was encouraged to make her paper work for [employer] and living mike. REFERRALS AND RECOMMENDATIONS 1. Discussed the cognitive benefits of memory exercises and reviewed examples 2. Discussed the cognitive benefits of physical exercise and socialization Dillan Santiago MD [place] [facility] documented in this encounter[facility]01-[facility]25 NoteHNO ID: [id number] Author: DILLAN SANTIAGO MD Service: ? Author Type: Physician Type: Progress Notes Filed: 12/10/2024 17:10 Note Text: [facility] Initial Consult Michaela Brandt is a 84 year old year old female who comes for Comprehensive Geriatric Assessment. Pt accompanied by: daughter Maribeth Caregivers involved in care: HPI: This is a 84-year-old woman with a past medical history of Hypothyroidism, chronic urinary retention which needs self cath, 4 times daily, with insomnia and anxiety. She has been having memory issues for a while, and has been getting worse. She moved recently from her daughters house to be over seen by another daughter Maribeth. The plan is for her to be renting for a while and try to see if she can manage on her own. They are looking into [facility] day care. Have cameras installed so they can watch her. She needs her pill boxes to be arranged. Does keep overall knowledge of her finances. In our interview today patient is not able to give specifics, she keeps going back to 30 years ago and talks about things in the past all the time, circumventing our conversations to what she knows and feels. Just moved to [place] where her daughter lives after needing to sell her 3 story home to allow her to continue to live independently. Last PCP was Ludin Richey in the [place] area. Is now in her own 1 level apartment. Needs assistance with medication dispensing and is needing support to drive her to appointments and to the store. Is hoping to go to [facility] a few times a week as well. Uses a cane for walking. Last fall was in the last year. Feels unsteady and off balance but no new weakness. Hypothyroidism: Takes medication as ordered. Denies any abnormal change in weight or energy. Previous back surgery in 2010. Has needed to self catheterize for years as a result of this. Is susceptible to UTIs and followed with a urologist in [place]. Denies abdominal pain, fever, chills, or dark/foul smelling urine. Any Family History of dementia? None that they know of. Are you or your spouse a ? Yes Alzheimer Questionnaire Long-term Memory: Difficulty remembering distant events from the past like childhood, previous employment, wedding: NO Behavioral/personality: Withdrawn/Depressed: NO Crying spells: NO Anxious: NO History of aggression: NO History of irritability: YES Apathy:NO Recent changes in weight or appetite: NO Alcohol or Drug use: NO Smoking? NO Sleep: Do you snore loudly (louder than talking or loud enough to be heard through closed doors)? YES Do you often feel tired, fatigued, or sleepy during daytime? NO Has anyone observed you stop breathing during your sleep? NO Are you restless when you sleep at night? NO Do you have problems falling a sleep? NO Do you have problems staying a sleep? NO Psychosis: Hallucinations or delusions: NO Suicidal or homicidal ideations: NO Obsessions, compulsions, or hoarding: NO Safety: Does pt know his/her address? NO What would you do if there was a fire? Took a while to say but she said get to a safe exit How would you call for help? Yes, did not know the number Does he/she know 911? YES Are there any firearms in the home? NO If yes are they in a secure location? No Social History: Primary language: Tongan Marital Status: Living situation: Home w/ Family Socially engaged? (participates in activities such as clubs, restorationist, community center, sports, games, visiting friends/relatives, etc?): YES once a week she goes out. Caregiver [place] and Stress Are your feeling overwhelmed? NO Do you have concerns about your own health? NO Are you neglecting your own needs? NO Do you have financial concerns? NO Do your fear loss of employment? NO Do you have concerns about verbal/physical abuse? NO Do you feel that you are still capable of taking care of your relative? NO Are you willing to continue being in the caregiver role? NO B-ADLs: (I=independent,A=assistance,D=dependent) ?Bathing: A, some over sight. Dressing: A, some times she needs tips on weather Toileting: I, Transferring:I, using a walker at this time Continence: I, Feeding: I, I-ADLs: Ability to use phone: I, Shopping: A, Cooking: superficial cooking. Housekeeping: A, Laundry: D, Transportation:D, Medications: {I, Handle Finances: A. PMHx: PAST MEDICAL HISTORY Diagnosis Date Anxiety Depression Hypothyroidism Neurogenic bladder Thyroid disease PSHx: PAST SURGICAL HISTORY Procedure Laterality Date HYSTERECTOMY HX SPINE SURGERY HX Home Meds: Prior to Admission medications : Medication levothyroxine (EUTHYROX) 50 mcg tablet, Sig Take 1 tablet by mouth once daily., Start Date 11/06/24, End Date , Taking? Yes, Authorizing Provider Mariposa Salinas APRN.CNP Medication escitalopram oxalate (LEXAPRO) 20 m (more content not included)... [facility]01-03-2025 Telephone encounter Note* Telephone Encounter - Mariposa Salinas APRN.CNP - 11/21/2024 1:10 PM EST Recently filled by Dr. Kaiden Salinas APRN.CNP [facility]01-03-2025 Miscellaneous Notes* Telephone Encounter - Mariposa Salinas APRN.CNP - 11/21/2024 1:10 PM EST Recently filled by Dr. Kaiden Salinas APRN.CNP * Telephone Encounter - Rosaura Melchor MD - 11/16/2024 8:12 PM EST RX filled 11/13 per PDMP Ludin Richey prescribed med Noted Mariposa also sent RX 11/05 Check with patient if got RX. If not, check with pharmacy * Telephone Encounter - Mckenzie Lombardo LPN - 11/14/2024 8:16 AM EST Family member [employer] message requesting the following refill Refill(s) Requested: Requested Prescriptions Pending Prescriptions Disp Refills clonazePAM (KLONOPIN) 0.5 mg tablet 45 tablet 0 Sig: Take 1 tablet by mouth three times a day as needed for anxiety for up to 30 days. ALLERGIES No Known Allergies (home) [phone] (cell) Last Office Visit Date: 11/05/2024 Last [facility] Visit: Visit date not found Future Appointment: 02/04/2025 The patients preferred pharmacy has been captured for this encounter? yes Request is for script(s) to be escript to pharmacy. Mckenzie Lombardo LPN documented in this encounterMart[facility]12-29-[facility]24 Telephone encounter Note * Telephone Encounter - Rosaura Melchor MD - 11/16/2024 8:12 PM EST RX filled 11/13 per PDMP Ludin Richey prescribed med Noted Mariposa also sent RX 11/05 Check with patient if got RX. If not, check with pharmacy [facility] Work Phone: 1(531) 731-578012-27-2024 Telephone encounter Note* Telephone Encounter - Mckenzie Lombardo LPN - 11/14/2024 8:16 AM EST Family member [employer] message requesting the following refill Refill(s) Requested: Requested Prescriptions Pending Prescriptions Disp Refills clonazePAM (KLONOPIN) 0.5 mg tablet 45 tablet 0 Sig: Take 1 tablet by mouth three times a day as needed for anxiety for up to 30 days. ALLERGIES No Known Allergies (home) [phone] (cell) Last Office Visit Date: 11/05/2024 Last [facility] Visit: Visit date not found Future Appointment: 02/04/2025 The patients preferred pharmacy has been captured for this encounter? yes Request is for script(s) to be escript to pharmacy. Mckenzie Lombardo LPN [facility]12-19-2024 Telephone encounter Note* Telephone Encounter - Jada Dela Cruz LPN - 11/06/2024 8:39 AM EST Received a request from pt's pharmacy. See message from pharmacy. Jada Dela Cruz LPN [facility]12-19-2024 Miscellaneous Notes* Telephone Encounter - Jada Dela Cruz LPN - 11/06/2024 8:39 AM EST Received a request from pt's pharmacy. See message from pharmacy. Jada Dela Cruz LPN documented in this encounterMartins Ferry Hospital12-18-2024 NoteHNO ID: [id number] Author: MARIPOSA SALINAS APRN.COMMUNITY OUTREACH WORKER Service: ? Author Type: Nurse Practitioner Type: Progress Notes Filed: 11/05/2024 15:38 Note Text: CC: Patient presents with: Establish Care: Establish Care HPI Michaela Brandt is a 84 year old female who presents today for establish care. Just moved to [place] where her daughter lives after needing to sell her 3 story home to allow her to continue to live independently. Last PCP was Ludin Richey in the [facility]. Is now in her own 1 level apartment. Needs assistance with medication dispensing and is needing support to drive her to appointments and to the store. Is hoping to go to [facility] a few times a week as well. Uses a cane for walking. Last fall was in the last year. Feels unsteady and off balance but no new weakness. Anxiety and Depression: Patient feels controlled at this time. Sleep: is described as normal Alcohol use: does not drink any alcohol Drug use: No Appetite: good Stresses: moving here Suicidal Thoughts: No suicidal ideation, intent or plan Support: Comes from multiple sources including family Hypothyroidism: Takes medication as ordered. Denies any abnormal change in weight or energy. Previous back surgery in 2010. Has needed to self catheterize for years as a result of this. Is susceptible to UTIs and followed with a urologist in [place]. Denies abdominal pain, fever, chills, or dark/foul smelling urine. REVIEW OF SYSTEMS General: no fevers, no chills, no night sweats, no recurrent infections, no change in appetite, no change in energy, and no significant changes in weight Respiratory: no cough, no wheezing, no shortness of breath, no hemoptysis Cardiovascular: no chest pain, no chest pressure, no palpitations, and no swelling GI: No nausea, vomiting, or diarrhea Neurologic: No headache, numbness, dizziness, syncope. PAST MEDICAL HISTORY Diagnosis Date Anxiety Depression Thyroid disease PAST SURGICAL HISTORY Procedure Laterality Date HYSTERECTOMY HX JOINT REPLACEMENT HX SPINE SURGERY HX ALLERGIES Patient has no known allergies. MEDICATIONS levothyroxine 50 mcg cap Take 50 mcg by mouth daily before breakfast. clonazePAM (KLONOPIN) 0.5 mg tablet Take 0.5 mg by mouth three times a day as needed for anxiety. escitalopram oxalate (LEXAPRO) 20 mg tablet Take 20 mg by mouth once daily. traZODone (DESYREL) 50 mg tablet Take 50 mg by mouth daily at bedtime. FAMILY HISTORY Problem Relation Age of Onset Diabetes Mother Coronary Artery Disease Mother Hypertension Mother Prostate Cancer Father Breast Cancer Sister Hypertension Sister Leukemia Daughter Hypertension Daughter Thyroid Daughter Social History Tobacco Use Smoking status: Never Smokeless tobacco: Never Vaping Use Vaping status: Never Used Substance Use Topics Alcohol use: Never Drug use: Never PHYSICAL EXAM BP 118/72 Pulse 76 Resp 16 Wt 60.8 kg (134 lb) SpO2 97% General Appearance: well appearing, in no acute distress, alert Pysch: mood and affect broad and appropriate but has dirty patches to her neck and ears and explains she wasn't able to wash herself well prior to moving due to safety concerns. Eyes: PERRLA, EOM's intact, conjunctiva pink and moist, no icterus, sclera white, non-injected Neck: Thyroid normal size and symmetric without palpable nodules, Neck supple, No adenopathy Lymph nodes: No cervical lymphadenopathy and No supraclavicular lymphadenopathy Lungs: Lungs clear to auscultation. No wheezing, rhonchi, rales. Heart: RRR without murmur, gallop, or rubs. No ectopy Abdomen: Abdomen soft, non-tender. Bowel sounds normal. No masses, organomegaly BUE Extremities: No deformities, edema, skin discoloration, clubbing or cyanosis. Good capillary refill. Neurological: Gait slow with purposeful steps, alert and oriented by forgetful of medications.past surgeries/and past events in visit. . Reflexes normal and symmetric. : speech normal, Health maintenance reviewed with patient: Depression Screening Never done Anxiety Screening Never done DTaP,Tdap,Td Vaccine(1 - Tdap) Never done Diabetes Screening Never done Pneumococcal Vaccine: 50+(1 of 1 - PCV) due on 1990 Bone Density Screening Never done Shingrix Vaccine(2 of 3) due on 01/14/2009 RSV Vaccine(1 - 1-dose 75+ series) Never done Advance Directive Discussion Never done Influenza Vaccine(1) Never done Covid-19 Vaccine(3 - 2023- season) due on 07/20/2024 DATA REVIEWED: Outside chart from Dr Richey reviewed. For what was available. ASSESSMENT/PLAN: 1. Encounter to establish care - ICD9: V65.8, ICD10: Z76.89 (primary diagnosis) Need to request further information with past surgeries to specify what back surgery occurred and find urologist to get notes to identify exactly what happened to result in this and get their last notes 2. Anxiety and depression - ICD9: 300.00, 311, ICD10: F41.9, F32.A (more content not included)...[facility]12-18-2024 History of Present illness Narrative* Older, Mariposa, ALEX.COMMUNITY OUTREACH WORKER - 11/05/2024 2:39 PM EST CC: Patient presents with: Establish Care: Establish Care HPI Michaela Brandt is a 84 year old female who presents today for establish care. Just moved to [place] where her daughter lives after needing to sell her 3 story home to allow her to continue to live independently. Last PCP was Ludin Richey in the [place] area. Is now in her own 1 level apartment. Needs assistance with medication dispensing and is needing support to drive herto appointments and to the store. Is hoping to go to [facility] a few times a week as well. Uses a cane for walking. Last fall was in the last year. Feels unsteady and off balance but no new weakness. Anxiety and Depression: Patient feels controlled at this time. Sleep: is described as normal Alcohol use: does not drink any alcohol Drug use: No Appetite: good Stresses: moving here Suicidal Thoughts: No suicidal ideation, intent or plan Support: Comes from multiple sources including family Hypothyroidism: Takes medication as ordered. Denies any abnormal change in weight or energy. Previous back surgery in 2009. Has needed to self catheterize for years as a result of this. Is susceptible to UTIs and followed with a urologist in [place]. Denies abdominal pain, fever, chills, or dark/foul smelling urine. REVIEW OF SYSTEMS General: no fevers, no chills, no night sweats, no recurrent infections, no change in appetite, no change in energy, and no significant changes in weight Respiratory: no cough, no wheezing, no shortness of breath, no hemoptysis Cardiovascular: no chest pain, no chest pressure, no palpitations, and no swelling GI: No nausea, vomiting, or diarrhea Neurologic: No headache, numbness, dizziness, syncope. PAST MEDICAL HISTORY Diagnosis Date Anxiety Depression Thyroid disease PAST SURGICAL HISTORY Procedure Laterality Date HYSTERECTOMY HX JOINT REPLACEMENT HX SPINE SURGERY HX ALLERGIES Patient has no known allergies. MEDICATIONS levothyroxine 50 mcg cap Take 50 mcg by mouth daily before breakfast. clonazePAM (KLONOPIN) 0.5 mg tablet Take 0.5 mg by mouth three times a day as needed for anxiety. escitalopram oxalate (LEXAPRO) 20 mg tablet Take 20 mg by mouth once daily. traZODone (DESYREL) 50 mg tablet Take 50 mg by mouth daily at bedtime. FAMILY HISTORY Problem Relation Age of Onset Diabetes Mother Coronary Artery Disease Mother Hypertension Mother Prostate Cancer Father Breast Cancer Sister Hypertension Sister Leukemia Daughter Hypertension Daughter Thyroid Daughter Social History Tobacco Use Smoking status: Never Smokeless tobacco: Never Vaping Use Vaping status: Never Used Substance Use Topics Alcohol use: Never Drug use: Never PHYSICAL EXAM BP 118/72 Pulse 76 Resp 16 Wt 60.8 kg (134 lb) SpO2 97% General Appearance: well appearing, in no acute distress, alert Pysch: mood and affect broad and appropriate but has dirty patches to her neck and ears and explains she wasn't able to wash herself well prior to moving due to safety concerns. Eyes: PERRLA, EOM's intact, conjunctiva pink and moist, no icterus, sclera white, non-injected Neck: Thyroid normal size and symmetric without palpable nodules, Neck supple, No adenopathy Lymph nodes: No cervical lymphadenopathy and No supraclavicular lymphadenopathy Lungs: Lungs clear to auscultation. No wheezing, rhonchi, rales. Heart: RRR without murmur, gallop, or rubs. No ectopy Abdomen: Abdomen soft, non-tender. Bowel sounds normal. No masses, organomegaly BUE Extremities: No deformities, edema, skin discoloration, clubbing or cyanosis. Good capillary refill. Neurological: Gait slow with purposeful steps, alert and oriented by forgetful of medications.past surgeries/and past events in visit. . Reflexes normal and symmetric. : speech normal, Health maintenance reviewed with patient: Depression Screening Never done Anxiety Screening Never done DTaP,Tdap,Td Vaccine(1 - Tdap) Never done Diabetes Screening Never done Pneumococcal Vaccine: 50+(1 of 1 - PCV) due on 1990 Bone Density Screening Never done Shingrix Vaccine(2 of 3) due on 01/14/2009 RSV Vaccine(1 - 1-dose 75+ series) Never done Advance Directive Discussion Never done Influenza Vaccine(1) Never done Covid-19 Vaccine(3 - 2023- season) due on 07/20/2024 DATA REVIEWED: Outside chart from Dr Richey reviewed. For what was available. ASSESSMENT/PLAN: 1. Encounter to establish care - ICD9: V65.8, ICD10: Z76.89 (primary diagnosis) Need to request further information with past surgeries to specify what back surgery occurred and find urologist to get notes to identify exactly what happened to result in this and get their last notes 2. Anxiety and depression - ICD9: 300.00, 311, ICD10: F41.9, F32.A Controlled but concerned with he age, possible memory issues, and balance issues that clonazepam may not be appropriate. Has been on this for a while so will continue at this time and have her see geriatrics for further evaluation - ESCITALOPRAM 20 MG TABLET - TRAZODONE 50 MG TABLET - CLONAZEPAM 0.5 MG TABLET - CONSULT TO GERIATRICS - Reviewed concept of neurochemical imbalance wth depression/anxiety, treatment options and benefits of counseling in combination with medication. Also reviewed benefits of sleep hygeine, diet and exercise - Follow-up in 3 months or sooner as needed - Instructed patient to contact office or [id number] after-hours promptly should condition worsen or any new symptoms appear. - [facility] and after hours crisis line 3. Hypothyroidism, unspecified type - ICD9: 244.9, ICD10: E03.9 asymptomatic - Instructed patient on importance of taking on an empty stomach either first thing in the morning or at bedtime. - LEVOTHYROXINE 50 MCG CAPSULE - THYROID STIMULATING HORMONE - T3, FREE - T4 FREE/FREE THYROXINE 4. Balance disorder - ICD9: 781.99, ICD10: R26.89 No recent falls but requiring 2 to assist safely getting on exam table due to balance - [facility] - CONSULT TO GERIATRICS 5. Ambulates with cane - ICD9: V46.8, ICD10: Z99.89 As above - [facility] - CONSULT TO GERIATRICS 6. Concern about memory - ICD9: V65.5, ICD10: Z71.1 Patient denies but did have moments of not remembering past information correctly. Daughter feels memory is a concern. - lives alone so needs medication dispenser to help patient appropriately take her medications. - [facility] - COMPREHENSIVE METABOLIC PANEL - COMPLETE BLOOD COUNT - VITAMIN B12 - THYROID STIMULATING HORMONE - T3, FREE - T4 FREE/FREE THYROXINE - CONSULT TO GERIATRICS 7. Self-catheterizes urinary bladder - ICD9: V49.89, ICD10: Z78.9 Requesting records from PCP and urologist. - CONSULT TO UROLOGY - CONSULT TO GERIATRICS 8. Unable to void - ICD9: 788.99, ICD10: R33.9 As above - CONSULT TO UROLOGY 9. Assistance needed for bathing - ICD9: V60.89, ICD10: Z74.1 Has not been bathing due to safety concerns but new appointment is on one floor so hope is for her to independently bathe herself. - [facility] - CONSULT TO GERIATRICS 10. Lipid screening - ICD9: V77.91, ICD10: Z13.220 - LIPID PANEL BASIC - COMPREHENSIVE METABOLIC PANEL 11. Urinary problem - ICD9: V47.4, ICD10: R39.89 See #7 - CONSULT TO UROLOGY Prescription instructions reviewed with patient as applicable. Potential red flag symptoms discussed with the patient. Reviewed appropriate action plan to take if red flag symptoms occur. Patient agreeable to treatment plan. Mariposa Salinas APRN.CNP [facility]* Diagnosis Onset Date Resolution Status Osteoarthritis of knees, bilateral noneactive [facility] Work Phone: Evaluation note* Diagnosis Encounter to establish care- Primary Other reasons for seeking consultation Anxiety and depression Dysthymic disorder Hypothyroidism, unspecified type Balance disorder Other symptoms involving nervous and musculoskeletal systems Ambulates with cane Concern about memory Self-catheterizes urinary bladder Other specified conditions influencing health status Unable to void Other symptoms involving urinary system Assistance needed for bathing Lipid screening Screening for lipoid disorders Urinary problem Other urinary problems documented [facility] encounter [facility]* Diagnosis Hypothyroidism, unspecified type [facility]* Diagnosis Hypothyroidism, unspecified type documented in this [facility]* Diagnosis Anxiety and depression Dysthymic disorder documented in this encounter [facility]* Diagnosis Anxiety and depression Dysthymic disorder documented in this encounter [facility] [facility] Diagnosis Cognitive impairment, mild, so stated- Primary Mild cognitive impairment, so stated Self-catheterizes urinary bladder Other specified conditions influencing health status Balance disorder Other symptoms involving nervous and musculoskeletal systems Concern about memory Anxiety and depression Dysthymic disorder Assistance needed for bathing Ambulates with cane [facility] Diagnosis Anxiety and depression Dysthymic disorder [facility] Diagnosis Anxiety and depression Dysthymic disorder documented in this encounter [facility] note* Diagnosis Retention of urine, unspecified- Primary Self-catheterizes urinary bladder Other specified conditions influencing health status Urinary problem Other urinary problems documented in this encounter [facility] note* Diagnosis Anxiety and depression Dysthymic disorder documented in this encounter [facility] note* Diagnosis Ambulatory dysfunction- Primary Difficulty in walking documented in this encounter [facility] note* Diagnosis Anxiety and depression Dysthymic disorder documented in this encounter [facility] note* Diagnosis Cognitive impairment, mild, so stated Mild cognitive impairment, so stated documented in this encounter [facility] note* Diagnosis Anxiety and depression Dysthymic disorder documented [facility]* Diagnosis 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, psychotic disturbance, mood disturbance, or anxiety (HCC)- Primary Impacted cerumen, right ear Insomnia due to mental disorder Generalized anxiety disorder documented [facility]* Diagnosis Impacted cerumen of right ear- Primary Impacted cerumen documented in this encounter [facility] note* Diagnosis Recurrent UTI (urinary tract infection)- Primary Urinary tract infection, site not specified documented in this encounter [facility] note* Diagnosis Urinary frequency- Primary documented [facility]* Diagnosis Anxiety and depression Dysthymic disorder documented in this encounter [facility] note* Diagnosis 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, psychotic disturbance, mood disturbance, or anxiety (HCC)- Primary Ambulatory dysfunction Difficulty in walking documented in this encounter [facility] note* Diagnosis Onset Date Resolution Status Admit Date Acute pain of left knee acute A pril 2024 1:47pm Closed intertrochanteric fra cture of left hip acute March 01, 2025 1:47pm Fall acute March 01 1:47pm [facility] Work Phone: Evaluation note* Diagnosis Ambulatory dysfunction- Primary Difficulty in walking Weakness of both lower extremities Balance disorder Other symptoms involving nervous and musculoskeletal systems S/P hip hemiarthroplasty Hip joint replacement by other means Closed fracture of left hip with delayed healing, subsequent encounter 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) Pressure injury of sacral region, unstageable (HCC) Urinary catheter in place Other postprocedural status Malnutrition, unspecified type (HCC) Anxiety and depression Dysthymic disorder Insomnia, unspecified type Acute deep vein thrombosis (DVT) of proximal vein of left lower extremity (HCC) Chronic anticoagulation Long-term (current) use of anticoagulants Pressure injury of left buttock, stage 3 (HCC) [facility] Diagnosis Onychomycosis- Primary Dermatophytosis of nail documented [facility]* Diagnosis Hypothyroidism, unspecified type Anxiety and depression Dysthymic disorder documented [facility]* Diagnosis Acute heart failure, unspecified heart failure type (HCC)- Primary Prediabetes Other abnormal glucose Urinary retention Retention of urine, unspecified Acute deep vein thrombosis (DVT) of calf muscle vein of left lower extremity ([facility]) Edema, unspecified type Self-catheterizes urinary bladder Other specified conditions influencing health status Weakness of both lower extremities S/P hip hemiarthroplasty Hip joint replacement by other means documented in this encounter [facility] Discharge instructionsAmbulatory Orders* Physical Therapy Referral Location: None Selected [facility] Work Phone: Reason for referral (narrative)No reason for referral information [facility]WAden[facility] Work Phone: Reason for visit Narrative* MRI/CT (Routine) - Closed Specialty Diagnoses / Procedures Referred By Paola t Referred To Contact MR IMAGING Diagnoses Cognitive impairment, mild, so stated Procedures MRI BRAIN W QUANT WO IVCON MRI BRAIN BRAIN STEM W/O CONTRAST MATERIAL Dillan Santiago MD [address] [place] [address] Phone: tel: fax: [place] [address] Referral ID Status Reason Start Date Expiration Date V isits Requested Visits Authorized [id number] Closed Auto-Generate d Referral 12/10/2024 01/09/2026 1 1 [facility] Summary Purpose Family History No Family History Records Found Relationship Condition Age at Onset Recorded Date/T aaliyah Not Specified Malignant neoplasm of prostate Unknown Relationship Condition Age at Onset Recorded Date/T aaliyah Not Specified Hypertension Unknown Advance Directives No Advanced Directives Records Found Advance Directive Response Recorded Date/ Time Advance Directives Yes October 6:36am Documents on File Type Date Recorded 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 Yes January 17, 2025 7:42pm Name of Medical Power of Rubber Production Machine Operator MARIBETH TINSLEYEMILY January 17, 2025 7:42pm Advance Directive Response Recorded Date/ Time Living Will Yes January 17, 2025 7:42pm Do you have a Healthcare Pow er of Rubber Production Machine Operator? Yes January 17, 2025 7:42pm Name of Medical Power of Rubber Production Machine Operator MARIBETH TINSLEYEMILY January 17, 2025 7:42pm Living Will No March 01, 2025 3:09pm Do you have a Healthcare Pow er of Rubber Production Machine Operator? No March 01, 2025 3:09pm Advance Directive Response Recorded Date/ Time Living Will No March 05, 2025 10:51am Do you have a Healthcare Pow er of Rubber Production Machine Operator? Yes March 05, 2025 10:51am Name of Medical Power of Rubber Production Machine Operator MARIBETH SHIN, DAUGHTER March 05, 2025 10:51a m Living Will Yes January 17, 2025 7:42pm Do you have a Healthcare Pow er of Rubber Production Machine Operator? Yes January 17, 2025 7:42pm Name of Medical Power of Rubber Production Machine Operator MARIBETH SHIN January 17, 2025 7:42pm Living Will No March 01, 2025 3:09pm Do you have a Healthcare Pow er of Rubber Production Machine Operator? No March 01, 2025 3:09pm Chief Complaint and Reason for Visit Chief Complaint Knee Pain Reason for Visit Osteoarthritis of kn ees, bilateral Chief Complaint Admit Date confusion, urinary January 17, 2025 5:54 pm LEFT HIP PAIN WITH INTERTROCHANTERIC FX March 01, 2025 1:47pm Reason for Visit Admit Date Acute pain of left knee March 01, 2025 1:47pm Closed intertrochanteric fracture of lef t hip March 01, 2025 1:47pm Fall March 01, 2025 1:4 7pm Chief Complaint Admit Date confusion, urinary January 17, 2025 5:54 pm LEFT HIP PAIN WITH INTERTROCHANTERIC FX March 01, 2025 1:47pm LEFT HIP PAIN WITH INTERTROCHANTERIC FX March 02, 2025 11:33am LEFT HIP PAIN WITH INTERTROCHANTERIC FX March 03, 2025 2:59pm LEFT HIP PAIN WITH INTERTROCHANTERIC FX March 04, 2025 12:21pm Chief Complaint Admit Date confusion, urinary January 17, 2025 5:54 pm LEFT HIP PAIN WITH INTERTROCHANTERIC FX March 01, 2025 1:47pm LEFT HIP PAIN WITH INTERTROCHANTERIC FX March 02, 2025 11:33am LEFT HIP PAIN WITH INTERTROCHANTERIC FX March 03, 2025 2:59pm LEFT HIP PAIN WITH INTERTROCHANTERIC FX March 04, 2025 12:21pm LEFT HIP PAIN W/ INTERTROCHANTERIC FX Ap ril 2024 3:04pm LT LEG PAIN March 09, 2025 8:4 1am Reason for Visit Admit Date Acute pain of left knee March 01, 2025 1:47pm Closed intertrochanteric fracture of lef t hip March 01, 2025 1:47pm Fall March 01, 2025 1:4 7pm Anxiety March 04, 2025 3:0 4pm Debility March 04, 2025 3:0 4pm Dementia March 04, 2025 3:0 4pm Depression March 04, 2025 3:0 4pm Hypothyroidism March 04, 2025 3:0 4pm Insomnia March 04, 2025 3:0 4pm Urinary retention March 04, 2025 3:0 4pm Acute pain of left knee March 04, 2025 3:04pm Closed intertrochanteric fracture of lef t hip March 04, 2025 3:04pm Fall March 04, 2025 3:0 4pm Chief Complaint Admit Date confusion, urinary January 17, 2025 5:54 pm LEFT HIP PAIN WITH INTERTROCHANTERIC FX March 01, 2025 1:47pm LEFT HIP PAIN WITH INTERTROCHANTERIC FX March 02, 2025 11:33am LEFT HIP PAIN WITH INTERTROCHANTERIC FX March 03, 2025 2:59pm LEFT HIP PAIN WITH INTERTROCHANTERIC FX March 04, 2025 12:21pm LEFT HIP PAIN W/ INTERTROCHANTERIC FX Ap ril 2024 3:04pm LT LEG PAIN March 09, 2025 8:4 1am LABWORK March 23, 2025 5:00am CUSTODIAL LAB WORK March 30, 2025 5:0 0am CUSTODIAL LAB WORK April 06, 2025 4:0 0am Reason for Referral Specialty Diagnoses / Procedures Referred By Contac t Referred To Contact Gerontology Diagnoses Self-catheterizes urinary bladder Balance disorder Concern about memory Anxiety and depression Assistance needed for bathing Ambulates with cane Procedures CONSULT TO GERIATRICS OFFICE/OUTPATIENT [facility] 60 MINUTES OlderMariposa APRN.COMMUNITY OUTREACH WORKER [address] [id number] Referral ID Status Reason Start Date Expiration Date Visits Requested Visits Authorized [id number] Authorized PCP Requested Referral 4 11/05/2025 1 1 Specialty Diagnoses / Procedures Referred By Contac t Referred To Contact Urology Diagnoses Self-catheterizes urinary bladder Unable to void Urinary problem Procedures CONSULT TO UROLOGY OFFICE/OUTPATIENT [facility] 60 MINUTES Older, 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 [address] [place] [address] Referral ID Status Reason Start Date Expiration Date Visits Requested Visits Authorized [id number] Authorized PCP Requested Referral 4 11/05/2025 1 1 Specialty Diagnoses / Procedures Referred By Paola t Referred To Contact MR IMAGING Diagnoses Cognitive impairment, mild, so stated Procedures MRI BRAIN W QUANT WO IVCON MRI BRAIN BRAIN STEM W/O CONTRAST MATERIAL Dillan Santiago MD [address] [place] [address] Mr Imaging [facility] Referral ID Status Reason Start Date Expiration Date Visits Requested Visits Authorized [id number] New Request Auto-Generat ed Referral 12/10/2024 01/09/2026 1 1 Additional Source Comments INFORMATION SOURCE (unrecogn ized section and content) DATE CREATED AUTHOR 12/22/2022 [facility] DATE CREATED AUTHOR AUTHOR'S ORGANIZ ATION 01/31/2024 [facility] DATE CREATED AUTHOR AUTHOR'S ORGANIZ ATION 01/26/2025 [facility] DATE CREATED AUTHOR AUTHOR'S ORGANIZ ATION 05/03/2025 [facility] DATE CREATED AUTHOR AUTHOR'S ORGANIZ ATION 05/13/2025 [facility] Care Teams (unrecognized sec tion and content) Team Status: Active Member Role Status Dates Ludin Richey MD Primary Care Provider Active Team Status: Inactive Member Role Status Dates Ludin Richey MD Primary Care Provider Active St art: January 17, 2024 End: January 17, 2024 Ludin Suarez MD Attending Provider Active Start: January 17, 2024 End: January 17, 2024 Virtual Assistant Relationship Specialty Start Date End Date Dillan Santiago MD [address] [place], [place] [id number] PCP - General Internal Medicine 11/05/24 Virtual Assistant Relationship Specialty Start Date End Date Dillan Santiago MD [address] [place], [place] [address] PCP - General Internal Medicine 11/05/24 Virtual Assistant Relationship Specialty Start Date End Date Dillan Santiago MD [address] [place], [place] [address] PCP - General Internal Medicine 11/05/24 Virtual Assistant Relationship Specialty Start Date End Date Dillan Santiago MD [address] [place] [address] PCP - General Internal Medicine 11/05/24 Virtual Assistant Relationship Specialty Start Date End Date Dillan Santiago MD [address] [place], [place] [address] PCP - General Internal Medicine 11/05/24 Virtual Assistant Relationship Specialty Start Date End Date Dillan Santiago MD [address] [place], [place] [address] [phone] PCP - General Internal Medicine 11/05/24 Virtual Assistant Relationship Specialty Start Date End Date Dillan Santiago MD [address] [place] [address] PCP - General Internal Medicine 11/05/24 Virtual Assistant Relationship Specialty Start Date End Date Dillan Santiago MD [address] [place] [address] PCP - General Internal Medicine 11/05/24 Virtual Assistant Relationship Specialty Start Date End Date Dillan Santiago MD [address] [place] [address] PCP - General Internal Medicine 11/05/24 Virtual Assistant Relationship Specialty Start Date End Date Dillan Santiago MD [address] [place] [address] PCP - General Internal Medicine 11/05/24 Virtual Assistant Relationship Specialty Start Date End Date Dillan Santiago MD [address] [place] [address] PCP - General Internal Medicine 11/05/24 Virtual Assistant Relationship Specialty Start Date End Date Dillan Santiago MD [address] [place] [address] PCP - General Internal Medicine 11/05/24 Virtual Assistant Relationship Specialty Start Date End Date Dillan Santiago MD [address] [place] [address] PCP - General Internal Medicine 11/05/24 Mariposa Salinas APRN.CNP [address] [place] [address] Engraver Set Up Operator Internal Medicine 01/30/25 Virtual Assistant Relationship Specialty Start Date End Date Dillan Santiago MD [address] [facility] [place] [address] PCP - General Internal Medicine 11/05/24 Mariposa Salinas APRN.COMMUNITY OUTREACH WORKER [address] [facility] [place] [address] Engraver Set Up Operator Internal Medicine 01/30/25 Virtual Assistant Relationship Specialty Start Date End Date Dillan Santiago MD [address] [facility] [place] [address] PCP - General Internal Medicine 11/05/24 Mariposa Salinas APRN.COMMUNITY OUTREACH WORKER [address] [facility] [place] [address] Engraver Set Up Operator Internal Medicine 01/30/25 Virtual Assistant Relationship Specialty Start Date End Date Dillan Santiago MD [address] [place] [address] PCP - General Internal Medicine 11/05/24 Mariposa Salinas APRN.COMMUNITY OUTREACH WORKER [address] [place] [address] Engraver Set Up Operator Internal Medicine 01/30/25 Virtual Assistant Relationship Specialty Start Date End Date Dillan Santiago MD [address] [place] [address] PCP - General Internal Medicine 11/05/24 Mariposa Salinas APRN.COMMUNITY OUTREACH WORKER [address] [facility] [place] [address] Engraver Set Up Operator Internal Medicine 01/30/25 Virtual Assistant Relationship Specialty Start Date End Date Dillan Santiago MD [address] [facility], [place] [id number] PCP - General Internal Medicine 11/05/24 Mariposa Salinas APRN.COMMUNITY OUTREACH WORKER [address] [facility] [place] [address] [facility] Internal Medicine 01/30/25 Team Status: Active Member Role Status Dates Dr. Dillan Santiago MD Primary Care Provider Active Team Status: Inactive Member Role Status Dates Dr. Vadim Florence DO Attending Provider Active Start: January 17, 2025 End: January 17, 2025 Dr. Vadim Florence DO Emergency Provider Active Start: January 17, 2025 End: January 17, 2025 Dr. Dillan Santiago MD Primary Care Provider Active Start: January 17, 2025 End: January 17, 2025 Team Status: Active Member Role Status Dates Dr. Dillan Santiago MD Primary Care Provider Active Start: March 01, 2025 Dr. Guerrero Valerio DO Emergency Provider Active Start: March 01, 2025 Dr. Roro Long , Admit Provider Active Start : March 01, 2025 Dr. Roro Long DO Attending Provider Active S tart: March 01, 2025 Virtual Assistant Relationship Specialty Start Date End Date Dillan Santiago MD [address] [place] [address] PCP - General Internal Medicine 11/05/24 Mariposa Salinas APRN.COMMUNITY OUTREACH WORKER [address] [facility] [place] [address] [facility] Internal Medicine 01/30/25 Team Status: Inactive Member Role Status Dates Dr. Dillan Santiago MD Primary Care Provider Active Start: March 01, 2025 End: March 04, 2025 Dr. Guerrero Valerio DO Emergency Provider Active Start: March 01, 2025 End: March 04, 2025 Dr. Roro Long DO Admit Provider Active Start : March 01, 2025 End: March 04, 2025 Dr. Roro Long , Other Provider Active Start : March 01, 2025 End: March 04, 2025 Dr. Boston Rosas DO Other Provider Active Start: March 01, 2025 End: March 04, 2025 Dr. Allison Tran MD Attending Provider Active Start: March 01, 2025 End: March 04, 2025 Team Status: Active Member Role Status Dates Dr. Dillan Santiago MD Primary Care Provider Active Start: March 02, 2025 Dr. Guerrero Valerio DO Emergency Provider Active Start: March 02, 2025 Dr. Roro Long , Admit Provider Active Start : March 02, 2025 Dr. Roro Long DO Other Provider Active Start : March 02, 2025 Dr. Boston Rosas DO Other Provider Active Start: March 02, 2025 Dr. Allison Tran MD Attending Provider Active Start: March 02, 2025 Dr. Allison Tran MD Other Provider Active St art: March 02, 2025 Team Status: Active Member Role Status Dates Dr. Dillan Santiago MD Primary Care Provider Active Start: March 03, 2025 Dr. Guerrero Valerio DO Emergency Provider Active Start: March 03, 2025 Dr. Roro Long DO Admit Provider Active Start : March 03, 2025 Dr. Roro Long DO Other Provider Active Start : March 03, 2025 Dr. Boston Rosas DO Other Provider Active Start: March 03, 2025 Dr. Allison Tran MD Attending Provider Active Start: March 03, 2025 Dr. Allison Tran MD Other Provider Active St art: March 03, 2025 Team Status: Active Member Role Status Dates Dr. Dillan Santiago MD Primary Care Provider Active Start: March 04, 2025 Dr. Guerrero Valerio DO Emergency Provider Active Start: March 04, 2025 Dr. Roro Long DO Admit Provider Active Start : March 04, 2025 Dr. Roro Long DO Other Provider Active Start : March 04, 2025 Dr. Boston Rosas DO Other Provider Active Start: March 04, 2025 Dr. Allison Tran MD Attending Provider Active Start: March 04, 2025 Dr. Allison Tran MD Other Provider Active St art: March 04, 2025 Team Status: Active Member Role Status Dates Dr. Dillan Santiago MD Primary Care Provider Active Start: March 04, 2025 Dr. Garfield Yo MD Admit Provider Active Star t: March 04, 2025 Dr. Garfield Yo MD Attending Provider Active Start: March 04, 2025 Team Status: Inactive Member Role Status Dates Dr. Dillan Santiago MD Primary Care Provider Active Start: March 09, 2025 End: March 09, 2025 Dr. Garfield Yo MD Attending Provider Active Start: March 09, 2025 End: March 09, 2025 Dr. Garfield Yo MD Referring Provider Active Start: March 09, 2025 End: March 09, 2025 Team Status: Active Member Role Status Dates Dr. Dillan Santiago MD Primary Care Provider Active Start: March 09, 2025 Dr. Vadim Estrada MD Attending Provider Active S tart: March 09, 2025 Virtual Assistant Relationship Specialty Start Date End Date Dillan Santiago MD [address] [place], [place] [address] PCP - General Internal Medicine 11/05/24 Mariposa Salinas, QUOTE CLERK.COMMUNITY OUTREACH WORKER [address] [place], [place] [id number] Engraver Set Up Operator Internal Medicine 01/30/25 Virtual Assistant Relationship Specialty Start Date End Date Dillan Santiago MD [address] [facility], [place] [address] PCP - General Internal Medicine 11/05/24 Mariposa Salinas, QUOTE CLERK.COMMUNITY OUTREACH WORKER [address] [facility] [place], [place] [address] Engraver Set Up Operator Internal Medicine 01/30/25 Virtual Assistant Relationship Specialty Start Date End Date Dillan Santiago MD [address] [facility] [place] [address] PCP - General Internal Medicine 11/05/24 Mariposa Salinas APRN.COMMUNITY OUTREACH WORKER [address] [facility] [place] [address] Engraver Set Up Operator Internal Medicine 01/30/25 Virtual Assistant Relationship Specialty Start Date End Date Dillan Santiago MD [address] [place] [address] PCP - General Internal Medicine 11/05/24 Mariposa Salinas APRN.COMMUNITY OUTREACH WORKER [address] [facility] [place] [address] Engraver Set Up Operator Internal Medicine 01/30/25 Virtual Assistant Relationship Specialty Start Date End Date Dillan Santiago MD [address] [place] [address] PCP - General Internal Medicine 11/05/24 Mariposa Salinas APRN.COMMUNITY OUTREACH WORKER [address] [place] [address] Engraver Set Up Operator Internal Medicine 01/30/25 Virtual Assistant Relationship Specialty Start Date End Date Dillan Santiago MD [address] [place] [address] PCP - General Internal Medicine 11/05/24 Mariposa Salinas APRN.COMMUNITY OUTREACH WORKER [address] [place] [address] Engraver Set Up Operator Internal Medicine 01/30/25 Virtual Assistant Relationship Specialty Start Date End Date Dillan Santiago MD [address] [facility], [place] [address] PCP - General Internal Medicine 11/05/24 Older, MariposaALEX.COMMUNITY OUTREACH WORKER [address] [facility] [place] [address] Engraver Set Up Operator Internal Medicine 01/30/25 Team Status: Inactive Member Role Status Dates Dr. Dillan Santiago MD Primary Care Provider Active Start: March 04, 2025 End: March 19, 2025 Dr. Garfield Yo MD Admit Provider Active Star t: March 04, 2025 End: March 19, 2025 Dr. Garfield Yo MD Attending Provider Active Start: March 04, 2025 End: March 19, 2025 Team Status: Active Member Role Status Dates Dr. iDllan Santiago MD Primary Care Provider Active Start: March 09, 2025 Dr. Vadim Estrada MD Attending Provider Active S tart: March 09, 2025 Dr. Garfield Yo MD Referring Provider Active Start: March 09, 2025 Team Status: Inactive Member Role Status Dates Dr. Dillan Santiago MD Primary Care Provider Active Start: March 23, 2025 End: March 23, 2025 Adele MEEHAN MD Attending Provider Active Start: March 23, 2025 End: March 23, 2025 Team Status: Inactive Member Role Status Dates Dr. Dillan Santiago MD Primary Care Provider Active Start: March 30, 2025 End: March 30, 2025 ANA Gamez Attending Provider Active Start: March 30, 2025 End: March 30, 2025 Team Status: Active Member Role Status Dates Dr. Dillan Santiago MD Primary Care Provider Active Start: April 06, 2025 Adele MEEHAN MD Attending Provider Active Start: April 06, 2025 Adele MEEHAN MD Referring Provider Active Start: April 06, 2025 Virtual Assistant Relationship Specialty Start Date End Date Dillan Santiago MD [address] [place] [address] PCP - General Internal Medicine 11/05/24 Mariposa Salinas APRN.COMMUNITY OUTREACH WORKER [address] [facility] [place] [address] Engraver Set Up Operator Internal Medicine 01/30/25 Virtual Assistant Relationship Specialty Start Date End Date Dillan Santiago MD [address] [place] [address] PCP - General Internal Medicine 11/05/24 Mariposa Salinas APRN.COMMUNITY OUTREACH WORKER [address] [place] [address] Engraver Set Up Operator Internal Medicine 01/30/25 Virtual Assistant Relationship Specialty Start Date End Date Dillan Santiago MD [address] [place] [address] PCP - General Internal Medicine 11/05/24 Mariposa Salinas APRN.COMMUNITY OUTREACH WORKER [address] [facility] [place] [address] Engraver Set Up Operator Internal Medicine 01/30/25 Virtual Assistant Relationship Specialty Start Date End Date Dillan Santiago MD [address] [place] [address] PCP - General Internal Medicine 11/05/24 Mariposa Salinas APRN.COMMUNITY OUTREACH WORKER [address] [facility] [place] [address] Engraver Set Up Operator Internal Medicine 01/30/25 Virtual Assistant Relationship Specialty Start Date End Date Dillan Santiago MD [address] [place] [address] PCP - General Internal Medicine 11/05/24 Mariposa Salinas APRN.[facility] [address] [place] [address] Engraver Set Up Operator Internal Medicine 01/30/25 Goals (unrecognized section and content) Goals may be documented in a n alternate sectionGoals may be documented in an alternate section Source Comments (unrecognize d section and content) In the event this informatio n is protected by the Federal Confidentiality of Alcohol and Drug Abuse Patient Records regulations: The Federal rules restrict any use of the information to criminally investigate or prosecute any alcohol or drug abuse patient.[facility] the event this information is protected by the Federal Confidentiality of Alcohol and Drug Abuse Patient Records regulations: The Federal rules restrict any use of the information to criminally investigate or prosecute any alcohol or drug abuse patient.[facility]In the event this information is protected by the Federal Confidentiality of Alcohol and Drug Abuse Patient Records regulations: The Federal rules restrict any use of the information to criminally investigate or prosecute any alcohol or drug abuse patient.[facility]In the event this information is protected by the Federal Confidentiality of Alcohol and Drug Abuse Patient Records regulations: The Federal rules restrict any use of the information to criminally investigate or prosecute any alcohol or drug abuse patient.[facility] the event this information is protected by the Federal Confidentiality of Alcohol and Drug Abuse Patient Records regulations: The Federal rules restrict any use of the information to criminally investigate or prosecute any alcohol or drug abuse patient.[facility]In the event this information is protected by the Federal Confidentiality of Alcohol and Drug Abuse Patient Records regulations: The Federal rules restrict any use of the information to criminally investigate or prosecute any alcohol or drug abuse patient.[facility]In the event this information is protected by the Federal Confidentiality of Alcohol and Drug Abuse Patient Records regulations: The Federal rules restrict any use of the information to criminally investigate or prosecute any alcohol or drug abuse patient.[facility] the event this information is protected by the Federal Confidentiality of Alcohol and Drug Abuse Patient Records regulations: The Federal rules restrict any use of the information to criminally investigate or prosecute any alcohol or drug abuse patient.[facility] the event this information is protected by the Federal Confidentiality of Alcohol and Drug Abuse Patient Records regulations: The Federal rules restrict any use of the information to criminally investigate or prosecute any alcohol or drug abuse patient.[facility]In the event this information is protected by the Federal Confidentiality of Alcohol and Drug Abuse Patient Records regulations: The Federal rules restrict any use of the information to criminally investigate or prosecute any alcohol or drug abuse patient.[facility]In the event this information is protected by the Federal Confidentiality of Alcohol and Drug Abuse Patient Records regulations: The Federal rules restrict any use of the information to criminally investigate or prosecute any alcohol or drug abuse patient.[facility]In the event this information is protected by the Federal Confidentiality of Alcohol and Drug Abuse Patient Records regulations: The Federal rules restrict any use of the information to criminally investigate or prosecute any alcohol or drug abuse patient.[facility]In the event this information is protected by the Federal Confidentiality of Alcohol and Drug Abuse Patient Records regulations: The Federal rules restrict any use of the information to criminally investigate or prosecute any alcohol or drug abuse patient.[facility]In the event this information is protected by the Federal Confidentiality of Alcohol and Drug Abuse Patient Records regulations: The Federal rules restrict any use of the information to criminally investigate or prosecute any alcohol or drug abuse patient.[facility]In the event this information is protected by the Federal Confidentiality of Alcohol and Drug Abuse Patient Records regulations: The Federal rules restrict any use of the information to criminally investigate or prosecute any alcohol or drug abuse patient.[facility] HospitalIn the event this information is protected by the Federal Confidentiality of Alcohol and Drug Abuse Patient Records regulations: The Federal rules restrict any use of the information to criminally investigate or prosecute any alcohol or drug abuse patient.[facility] HospitalIn the event this information is protected by the Federal Confidentiality of Alcohol and Drug Abuse Patient Records regulations: The Federal rules restrict any use of the information to criminally investigate or prosecute any alcohol or drug abuse patient.[facility] HospitalIn the event this information is protected by the Federal Confidentiality of Alcohol and Drug Abuse Patient Records regulations: The Federal rules restrict any use of the information to criminally investigate or prosecute any alcohol or drug abuse patient.[facility] HospitalIn the event this information is protected by the Federal Confidentiality of Alcohol and Drug Abuse Patient Records regulations: The Federal rules restrict any use of the information to criminally investigate or prosecute any alcohol or drug abuse patient.[facility] HospitalIn the event this information is protected by the Federal Confidentiality of Alcohol and Drug Abuse Patient Records regulations: The Federal rules restrict any use of the information to criminally investigate or prosecute any alcohol or drug abuse patient.[facility] HospitalIn the event this information is protected by the Federal Confidentiality of Alcohol and Drug Abuse Patient Records regulations: The Federal rules restrict any use of the information to criminally investigate or prosecute any alcohol or drug abuse patient.[facility] HospitalIn the event this information is protected by the Federal Confidentiality of Alcohol and Drug Abuse Patient Records regulations: The Federal rules restrict any use of the information to criminally investigate or prosecute any alcohol or drug abuse patient.[facility] HospitalIn the event this information is protected by the Federal Confidentiality of Alcohol and Drug Abuse Patient Records regulations: The Federal rules restrict any use of the information to criminally investigate or prosecute any alcohol or drug abuse patient.[facility] HospitalIn the event this information is protected by the Federal Confidentiality of Alcohol and Drug Abuse Patient Records regulations: The Federal rules restrict any use of the information to criminally investigate or prosecute any alcohol or drug abuse patient.[facility] HospitalIn the event this information is protected by the Federal Confidentiality of Alcohol and Drug Abuse Patient Records regulations: The Federal rules restrict any use of the information to criminally investigate or prosecute any alcohol or drug abuse patient.[facility] HospitalIn the event this information is protected by the Federal Confidentiality of Alcohol and Drug Abuse Patient Records regulations: The Federal rules restrict any use of the information to criminally investigate or prosecute any alcohol or drug abuse patient.[facility] HospitalIn the event this information is protected by the Federal Confidentiality of Alcohol and Drug Abuse Patient Records regulations: The Federal rules restrict any use of the information to criminally investigate or prosecute any alcohol or drug abuse patient.[facility] HospitalIn the event this information is protected by the Federal Confidentiality of Alcohol and Drug Abuse Patient Records regulations: The Federal rules restrict any use of the information to criminally investigate or prosecute any alcohol or drug abuse patient.[facility] HospitalIn the event this information is protected by the Federal Confidentiality of Alcohol and Drug Abuse Patient Records regulations: The Federal rules restrict any use of the information to criminally investigate or prosecute any alcohol or drug abuse patient.[facility] HospitalIn the event this information is protected by the Federal Confidentiality of Alcohol and Drug Abuse Patient Records regulations: The Federal rules restrict any use of the information to criminally investigate or prosecute any alcohol or drug abuse patient.[facility] HospitalIn the event this information is protected by the Federal Confidentiality of Alcohol and Drug Abuse Patient Records regulations: The Federal rules restrict any use of the information to criminally investigate or prosecute any alcohol or drug abuse patient.[facility] HospitalIn the event this information is protected by the Federal Confidentiality of Alcohol and Drug Abuse Patient Records regulations: The Federal rules restrict any use of the information to criminally investigate or prosecute any alcohol or drug abuse patient.[facility] HospitalIn the event this information is protected by the Federal Confidentiality of Alcohol and Drug Abuse Patient Records regulations: The Federal rules restrict any use of the information to criminally investigate or prosecute any alcohol or drug abuse patient.[facility] HospitalIn the event this information is protected by the Federal Confidentiality of Alcohol and Drug Abuse Patient Records regulations: The Federal rules restrict any use of the information to criminally investigate or prosecute any alcohol or drug abuse patient.[facility] HospitalIn the event this information is protected by the Federal Confidentiality of Alcohol and Drug Abuse Patient Records regulations: The Federal rules restrict any use of the information to criminally investigate or prosecute any alcohol or drug abuse patient.[facility] HospitalIn the event this information is protected by the Federal Confidentiality of Alcohol and Drug Abuse Patient Records regulations: The Federal rules restrict any use of the information to criminally investigate or prosecute any alcohol or drug abuse patient.[facility] HospitalIn the event this information is protected by the Federal Confidentiality of Alcohol and Drug Abuse Patient Records regulations: The Federal rules restrict any use of the information to criminally investigate or prosecute any alcohol or drug abuse patient.[facility] HospitalIn the event this information is protected by the Federal Confidentiality of Alcohol and Drug Abuse Patient Records regulations: The Federal rules restrict any use of the information to criminally investigate or prosecute any alcohol or drug abuse patient.[facility] HospitalIn the event this information is protected by the Federal Confidentiality of Alcohol and Drug Abuse Patient Records regulations: The Federal rules restrict any use of the information to criminally investigate or prosecute any alcohol or drug abuse patient.[facility] HospitalIn the event this information is protected by the Federal Confidentiality of Alcohol and Drug Abuse Patient Records regulations: The Federal rules restrict any use of the information to criminally investigate or prosecute any alcohol or drug abuse patient.[facility] HospitalIn the event this information is protected by the Federal Confidentiality of Alcohol and Drug Abuse Patient Records regulations: The Federal rules restrict any use of the information to criminally investigate or prosecute any alcohol or drug abuse patient.[facility] HospitalIn the event this information is protected by the Federal Confidentiality of Alcohol and Drug Abuse Patient Records regulations: The Federal rules restrict any use of the information to criminally investigate or prosecute any alcohol or drug abuse patient.[facility] HospitalIn the event this information is protected by the Federal Confidentiality of Alcohol and Drug Abuse Patient Records regulations: The Federal rules restrict any use of the information to criminally investigate or prosecute any alcohol or drug abuse patient.[facility] HospitalIn the event this information is protected by the Federal Confidentiality of Alcohol and Drug Abuse Patient Records regulations: The Federal rules restrict any use of the information to criminally investigate or prosecute any alcohol or drug abuse patient.[facility] HospitalIn the event this information is protected by the Federal Confidentiality of Alcohol and Drug Abuse Patient Records regulations: The Federal rules restrict any use of the information to criminally investigate or prosecute any alcohol or drug abuse patient.[facility] HospitalIn the event this information is protected by the Federal Confidentiality of Alcohol and Drug Abuse Patient Records regulations: The Federal rules restrict any use of the information to criminally investigate or prosecute any alcohol or drug abuse patient.[facility] HospitalIn the event this information is protected by the Federal Confidentiality of Alcohol and Drug Abuse Patient Records regulations: The Federal rules restrict any use of the information to criminally investigate or prosecute any alcohol or drug abuse patient.[facility] HospitalIn the event this information is protected by the Federal Confidentiality of Alcohol and Drug Abuse Patient Records regulations: The Federal rules restrict any use of the information to criminally investigate or prosecute any alcohol or drug abuse patient.[facility] Reason for Visit (unrecogniz ed section and content) Reason Comments Establish Care Establish Care Reason Comments Med Change Request Reason Onset Date Comments Refill Request 11/11/2024 Reason Comments Consult Specialty Diagnoses / Procedures Referred By Paola bonilla Referred To Contact Gerontology Diagnoses Self-catheterizes urinary bladder Balance disorder Concern about memory Anxiety and depression Assistance needed for bathing Ambulates with cane Procedures CONSULT TO GERIATRICS OFFICE/OUTPATIENT NEW HIGH MDM 60 MINUTES 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, 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 [address] [place] [address] Referral ID Status Reason Start Date Expiration Date V isits Requested Visits Authorized [id number] Closed PCP Requested Referral 11/05/2024 11/05/2025 1 1 Reason Onset Date Comments Refill Request 12/12/2024 Reason Onset Date Comments Refill Request 12/15/2024 Reason Comments Orders Reason Comments New Patient Urinary Retention Specialty Diagnoses / Procedures Referred By Paola t Referred To Contact Urology Diagnoses Self-catheterizes urinary bladder Unable to void Urinary problem Procedures CONSULT TO UROLOGY OFFICE/OUTPATIENT NEW HIGH MDM 60 MINUTES Older, 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 [address] [place] [address] Referral ID Status Reason Start Date Expiration Date V isits Requested Visits Authorized [id number] Closed PCP Requested Referral 11/05/2024 11/05/2025 1 1 Reason Comments Request Outside Medical Records Reason Onset Date Comments Refill Request 12/31/2024 Reason Onset Date Comments Refill Request 01/21/2025 Reason Onset Date Comments Refill Request 01/26/2025 Reason Onset Date Comments Refill Request 02/02/2025 Reason Comments Follow Up 01/24/25 MRI review re Marin serrano not a good fit per patient Reason Comments Recheck Follow up Reason Comments Urinary Problem Brain fog, 1 day Reason Comments Clinical Update Reason Onset Date Comments Refill Request 02/24/2025 Reason Onset Date Comments Results 01/28/2025 Reason Comments Follow Reason Comments ER F/U [facility] 03/01/25 fall-lef t hip FX; 03/02/25 Left hip cephalomedullary nail fixation, 03/04/25 transferred to [facility] for rehabilitation, 03/19/25 transferred to [facility] for continuing rehabilitation Reason Comments Patient Update Orders Reason Comments Request information from halfway Reason Comments Swelling Reason Comments Patient Update Reason Onset Date Comments Refill Request 05/01/2025 Reason Comments Edema Reason Comments Orders Self catheter Reason Comments F/U 3 Month Reason Comments Anxiety Reason Comments Advantage requesting order FOR RECORDS PERTAINING TO PATIENTS WHO ARE OR HAVE BEEN ENROLLED IN A CHEMICAL DEPENDENCY/SUBSTANCEABUSE PROGRAM, SOME INFORMATION MAY BE OMITTED. This clinical summary was aggregated from multiple sources. Caution should be exercised in using it in the provision of clinical care. This summary normalizes information from multiple sources, and as a consequence, information in this document may materially change the coding, format and clinical context of patient data. In addition, data may be omitted in some cases. CLINICAL DECISIONS SHOULD BE BASED ON THE PRIMARY CLINICAL RECORDS. [employer] provides no warranty or guarantee of the accuracy or completeness of information in this document.
[2025-05-17 10:19] LABS: Absolute Lymphocyte Count 1.24 X10^3/uL (0.83-4.51); Absolute Neutrophil Count 6.9 X10^3/uL (2.0-7.7); Basophil# 0.05 X10^3/uL; Basophil% 0.6 % (0-1); Eosinophil# 0.08 X10^3/uL; Eosinophils% 0.9 % (0-5); Hematocrit 36.5 % (37-47); Hemoglobin 12.5 g/dL (12.0-15.0); Lymphocyte # 1.24 X10^3/ul (0.83-4.51); Lymphocyte % 14.1 % (19-41); Mean Corp Hgb Conc 34.2 g/dL (32-36); Mean Corpuscular Volume 87.5 fL (81-99); Mean Platelet Vol. 10.4 fl (6.2-12.0); Monocyte# 0.45 X10^3/uL; Monocyte% 5.1 % (0-10); NRBC Flagged by Analyzer 0 % (0-5); Neutrophil # 6.94 X10^3/uL (2.7-7.7); Neutrophil % 78.8 % (47-70); Platelet Count 181 K/mm3 (150-450); RBC Distribution Width CV 13.1 % (11.6-14.6); RBC Distribution Width SD 41.9 fl (35.1-43.9); Red Blood Count 4.17 M/mm3 (4.2-5.4); White Blood Count 8.8 K/mm3 (4.4-11.0)
[2025-05-17 10:20] LABS: Color, Urine Yellow (Yellow); Glucose, Dipstick Normal (Normal); Ketone-Dipstick Negative (Negative); Leukocyte Esterase-Dipstick 100 /ul (Negative); Nitrite-Dipstick Positive (Negative); Occult Blood-Urine 10 /ul (Negative); Protein-Dipstick 30 mg/dl (Negative); Urine Bilirubin Dipstick Negative (Negative); Urine Clarity Clear (Clear); Urine Urobilinogen Normal (Normal)
[2025-05-17 10:28] LABS: White Blood Cells 50-100 SEEN /hpf (0-5)
[2025-05-17 10:29] LABS: Red Blood Cells-Urine 0-5 SEEN /hpf (0-5); Squamous Epithelial Cells - UA 0-5 SEEN /hpf (5-10)
[2025-05-17 10:38] LABS: Anion Gap 12 (5-15); BUN 15 mg/dL (4-19); BUN/Creat Ratio 15.6 RATIO (10-20); Carbon Dioxide 26.5 mmol/L (21.0-32.0); Chloride 104 mmol/L (98-108); Creatinine, Serum 0.96 mg/dL (0.70-1.20); EST Glomerular Filtration Rate 58 (>60); Glucose 97 mg/dL (70-99); Potassium 3.9 mmol/L (3.3-5.1); Sodium Level 142 mmol/L (133-145)
[2025-05-17 11:32] VITALS: BP 148/66; PULSE 65; RESP 16; O2SAT 99
[2025-05-17] MEDS: Cephalexin 250 MG Capsule 500 MG PO (11:39)
[2025-05-17 11:49] VITALS: BP 148/66; PULSE 65; RESP 16; TEMP 37; O2SAT 99
== END 2025-05-17 11:49 | disposition home or self-care (01) ==
PROVIDERS: Emergency Provider Emergency Medicine; PCP Internal Medicine; Visit Provider Emergency Medicine
DX: N39.0 Urinary tract infection, site not specified (principal); F03.90 Unspecified dementia, unspecified severity, without behavioral disturbance, psychotic disturbance, mood disturbance, and anxiety; I10 Essential (primary) hypertension; Z79.899 Other long term (current) drug therapy
CPT/HCPCS: 80048; 81001; 85025; 87077; 87086; 87088; 87186; 99284; P9612; A4216

== ENCOUNTER 2025-06-20 08:28 | Inpatient (IN) | payer MEDICARE, SELFPAY ==
[2025-06-20] VITALS (17 sets, daily range): BP systolic 95–162; BP diastolic 53–128; PULSE 64–88; RESP 16–28; TEMP 36.6–37.3; O2SAT 95–100; BMI 23.4; BMI 22.9
--- NOTE | 2025-06-20 08:47 | CT_ITS ---
EXAM: BRAIN/HEAD WITHOUT CONTRAST CLINICAL HISTORY: 84 y/o F with TRAUMA. Tripped over walker. COMPARISON: CT head 03/01/2025. TECHNIQUE: Routine CT imaging of the head without IV contrast. Additional multiplanar reformats were obtained. Dose reduction techniques were used including intermediate exposure control (AEC),iterative reconstruction technique, and/or mA and/or KV dose adjustments based on patient's size. FINDINGS: There is moderate generalized cerebral volume loss with concordant prominence of the ventricles and subarachnoid spaces. Moderate patchy supratentorial white matter hypodensities. No acute intracranial hemorrhage or herniation. The mruray-white matter interfaces are otherwise maintained. The orbits, visualized paranasal sinuses and mastoids are unremarkable. No acute calvarial fracture or scalp hematoma. CT/Brain/Head without Contrast IMPRESSION: No acute intracranial findings. Chronic findings as described. Reading Location: [id number]
--- NOTE | 2025-06-20 08:47 | EKG12_ITS ---
Test Reason : FALL Blood Pressure : */* mmHG Vent. Rate : 72 BPM Atrial Rate : 72 BPM P-R Int : 200 ms QRS Dur : 78 ms QT Int : 398 ms P-R-T Axes : 10 -24 10 degrees QTcB Int : 435 ms Normal sinus rhythm Moderate voltage criteria for LVH, may be normal variant ( R in aVL , Hari product ) Borderline ECG Confirmed by SHAYNE DELACRUZ, KRISTA ([id number]), book editor NICKOLAS PALOMARES ([id number]) on 06/23/2025 7:54:04 AM Referred By: Confirmed By: KRISTA BELLA MD
--- NOTE | 2025-06-20 08:48 | CT_ITS ---
PROCEDURE: CT CHEST, ABD, PEL W/CONTRAST 06/20/2025 REASON FOR EXAM: FALL TECHNIQUE: Chest, abdomen and pelvis CT with intravenous contrast. Coronal and Sagittal reconstruction series were provided. One or more dose reduction techniques were used (e.g., Automated exposure control, adjustment of the mA and/or kV according to patient size, use of iterative reconstruction technique. PATIENT PREPARATION: Per protocol ORAL CONTRAST TYPE: None. CONTRAST: Isovue 370 VOLUME: 100mL RADIATION DOSE SUMMARY: DLP: 1100 mGycm COMPARISON: Chest radiograph 03/11/2025. FINDINGS: CT CHEST: Hardware: None. Lymph nodes: No axillary or hilar lymphadenopathy. There is lymphadenopathy of the left upper paratracheal and right lower paratracheal lymph nodes. Heart and Vasculature: The heart is normal in size without pericardial effusion. The great vessels are normal in caliber. Severe coronary artery calcifications, and severe mixed plaque of the thoracic aorta. Lungs and Airways: The central airways are grossly patent. Visualization is slightly limited by motion artifact. Persistent findings of emphysema/fibrosis, greatest in the bibasilar, dependent lungs, with mild honeycombing and reticulations. No pleural effusion or pneumothorax. Bones: Thoracic spondylosis. Chronic left humeral head fracture deformity. Stable right humeral head enostosis. No acute fracture. CT ABDOMEN/PELVIS: Liver: The liver is normal in size without suspicious hepatic mass. The major portal veins are patent. No biliary ductal dilation. Gallbladder: No radiopaque stones within the gallbladder. Spleen: Unremarkable. Pancreas: Grossly unremarkable. Adrenals: Small bilateral adrenal nodules, likely adenomas. Kidneys: Mild symmetric renal cortical scarring. No hydronephrosis or nephrolithiasis. Bladder: Distended and unremarkable. Reproductive Organs: Prior hysterectomy. Partially calcified, enhancing right ovarian nodule, measuring approximately 1.7 x 1.5 cm (series 9, image 84). Bowel: The bowel loops are nondilated. No ascites or pneumoperitoneum. Distal colonic diverticulosis. Normal appendix. Lymph nodes: No suspicious lymphadenopathy. Vasculature: Severe mixed plaque of the aortoiliac vessels, with multifocal ectasia. Bones: Lumbar spondylosis. Prior ORIF of the left femur. Moderate rightward curvature of the lumbar spine. CT/CT Chest, Abd, Pel w/Contrast IMPRESSION: CT chest: 1. No acute thoracic finding. 2. Persistent findings of pulmonary fibrosis, most compatible with IPF. Thorac ic lymphadenopathy can be seen with IPF, however correlation with prior examination is recommended if available. CT abdomen/pelvis: 1. No acute abdominopelvic finding. 2. Partially calcified, enhancing right ovarian nodule, which is indeterminate in etiology and may represent benign or malignant pathology. Correlation with nonemergent, routine pelvic ultrasound recommended for further evaluation. Reading Location: [id number]
--- NOTE | 2025-06-20 08:48 | CT_ITS ---
PROCEDURE: SPINE CERVICAL WITHOUT CONTRAS 06/20/2025 REASON FOR EXAM: TRAUMA TECHNIQUE: Cervical spine CT without contrast. Coronal and Sagittal reconstruction series were provided. One or more dose reduction techniques were used (e.g., Automated exposure control, adjustment of the mA and/or kV according to patient size, use of iterative reconstruction technique. RADIATION DOSE SUMMARY: DLP: 800 mGycm COMPARISON: None. FINDINGS: Alignment: There is mild exaggeration of the normal cervical lordosis. No traumatic listhesis. Vertebrae: No acute cervical fracture. Multilevel anterior and posterior diffuse bridging osteophyte complexes, degenerative disc disease with vacuum effect, and uncovertebral and facet hypertrophy resulting in multilevel central and neural foraminal stenosis, greatest and of moderate degree at C4-5. Soft Tissues: No prevertebral or subcutaneous hematoma. Calcific plaque of the left cervical carotid artery. CT/Spine Cervical without Contras IMPRESSION: NO ACUTE CERVICAL FRACTURE. DEGENERATIVE CHANGES. Reading Location: [id number]
--- NOTE | 2025-06-20 08:54 | EX.ED.DYSGE1 ---
HPI History of Present Illness Chief Complaint: Fall Narrative Narrative: Patient is 84-year-old female with past medical history of hypothyroidism, anxiety, dementia, hypertension who presented to the emergency department chief complaint of fall. Patient states that she tripped over her walker and was found by the home health aide. She is complaining of left hip pain and bilateral knee pain. Per family at bedside earlier in the year she had a hip replacement and she was progressing well with physical therapy and Occupational Therapy and believes that she was just discharged from occupational therapy. They note that she is on Eliquis. [facility] Medical History Closed intertrochanteric fracture of left hip Fall Hypothyroidism Anxiety Dementia Self-catheterizes urinary bladder Hypertension Back pain Home Medications ?Medication ?Instructions ?Recorded ?Last Taken ?Type ascorbic acid (vitamin C) 500 mg 500 mg PO DAILY supplement 03/01/25 06/19/25 History tablet (C-500) donepezil 10 mg tablet 10 mg PO DAILY dementia 03/01/25 06/19/25 History escitalopram oxalate 20 mg tablet 20 mg PO DAILY anxiety 03/01/25 06/19/25 History levothyroxine 50 mcg tablet 50 mcg PO DAILY thyroid 03/01/25 06/19/25 History trazodone 50 mg tablet 50 mg PO QHS anxiety 03/01/25 06/19/25 History acetaminophen 500 mg tablet 1,000 mg (2 x 500 mg) PO Q8 #0 tabs 03/16/25 Unknown Rx apixaban 5 mg tablet (Eliquis) 5 mg PO BID #0 tabs 03/16/25 06/19/25 Rx sennosides 8.6 mg-docusate sodium 1 tab PO BID #0 tabs 03/16/25 Unknown Rx 50 mg tablet (Stimulant Laxative Plus) buspirone 5 mg tablet 5 mg PO BID 06/20/25 06/19/25 History cholecalciferol (vitamin D3) 125 125 mcg PO DAILY 06/20/25 06/19/25 History mcg (5,000 unit) capsule clonazepam 0.5 mg tablet 0.5 mg PO Q8H PRN anxiety 06/20/25 06/19/25 History Allergy/AdvReac Type Severity Reaction Status Date / Time No Known Allergies Allergy Verified 06/20/25 08:35 Family History Other Hypertension Surgical History H/O: hysterectomy Status post right knee replacement Social History household members: none housing: apartment current occupational status: retired other: Daughter lives a few doors down helps her on a regular basis Smoking Status: Never smoker alcohol intake: never substance use type: does not use ROS ROS ED ROS Narrative Constitutional: Complains of whole body soreness denies any headaches, lightness, or dizziness Eyes: Denies double vision Cardiovascular: Denies chest pain Respiratory: Denies shortness of breath Abdomen: Denies nausea vomiting diarrhea : Denies any urinary symptoms Neurological: Denies any numbness, weakness, tingling Musculoskeletal: Complains of bilateral knee pain, left elbow pain, left hip pain Skin: Denies any rashes or lesions EXAM Physical Exam Narrative Exam Narrative: General: Patient lying in bed rest comfortably did not appear to be in acute distress Head: Atraumatic, normocephalic Eyes: PERRL bilaterally, EOMI blood, no conjunctival injection noted Neck: Soft, supple, trachea midline Cardiovascular: Regular rate and rhythm Respiratory: Clear to auscultation bilaterally Abdomen: Soft, nondistended, nontender to palpation Musculoskeletal: Patient has mild tenderness palpation of the bilateral knees and mild pain with attempted range of motion of the left hip although bony prominence palpated joints taken through full range of motion no pain elicited Extremities: +4/5 strength noted in the bilateral upper and lower extremities, radial pulses +2/4 in the bilateral extremities Neurological: Patient follow commands as she was at [facility] Skin: Warm, dry, intact patient does have a superficial abrasion noted to her left knee anteriorly as well as some redness on her right knee anteriorly Const Vital Signs: 06/20/25 08:29 06/20/25 09:02 06/20/25 10:28 Temperature 98.1 F Temperature Source Oral Pulse Rate 87 71 Respiratory Rate 16 18 Respiratory Effort Normal Non-Labored Respiratory Depth Normal Respiratory Pattern Normal Blood Pressure 95/81 H 134/106 H Blood Pressure Mean 85 115 Pulse Ox 97 95 Oxygen Delivery Method Room Air Room Air Room Air 06/20/25 12:00 Temperature Temperature Source Pulse Rate 75 Respiratory Rate 26 H Respiratory Effort Respiratory Depth Respiratory Pattern Blood Pressure 153/128 H Blood Pressure Mean 136 Pulse Ox 98 Oxygen Delivery Method MDM MDM MDM Narrative Medical decision making narrative: Patient is a 84-year-old female who presented to the emergency department with a chief complaint of fall. On the differential diagnose includes but not limited to intracranial hemorrhage, cervical spine fracture, spine fracture, elbow fracture, knee fracture, periprosthetic hip fracture. Once workup is obtained reviewed she will be reevaluated. Patient's CBC was significant for leukocytosis of 28,000, hemoglobin 14.3, platelet count of 252. Patient INR was 1.6, sodium normal 130, potassium normal 3.7, creatinine normal at 0.93. Patient's total bilirubin was 2.15, direct bilirubin is 0.85, AST and ALT are 4719 respectively. Patient's CK level of 914, urinalysis reviewed showed positive nitrates 100 leukocyte esterase no white cells with 1+ bacteria this was sent for culture. Patient's x-ray of her left knee reviewed by myself by radiology showed no acute findings no fracture or dislocation degenerative osteoarthrosis noted. Patient's x-ray of her right knee reviewed showed tricompartmental arthrosis with chondrocalcinosis no demonstrated acute fracture or suspicious osseous lesion surgical hardware in the patella from previous ORIF free of complication. Patient's x-ray of her hip and pelvis reviewed by myself by radiology showed despite the presence of surgical hardware in the left femur I suspect there is nonunion of previously noted intertrochanteric fracture there is small evidence of fracture lucency and cortical irregularity no hardware complication noted H consistent right hip and SI joint arthrosis no acute abnormality. Patient x-ray of elbow reviewed showed osteopenia no demonstrated fracture or joint space abnormalities. This was reviewed by myself and by radiology. Patient's CT head and brain showed no acute intracranial findings chronic findings noted. Patient CT cervical spine reviewed showed no acute fracture or listhesis. Patient CT chest abdomen pelvis with contrast showed no acute thoracic findings persistent findings of pulmonary fibrosis. CT abdomen pelvis no acute abdominal pelvic findings. There is EKG reviewed showed sinus rhythm rate of 72 bpm. HI interval was 200. Did discuss case with on-call orthopedic surgeon Dr. Rosas and he states that her x-ray looks stable there is nothing acute going on at this point time. Staff attempted to get the patient up and ambulate her she was unable to do so therefore we will reach out to the hospitalist for admission as she lives alone. Discussed case with hospitalist Dr. Molina who accept patient for admission. There is no identifiable source infection however given her generalized weakness her leukocytosis will give her a gram of Rocephin which was ordered at 1:34 PM. Patient notified and for members all course concerns answered. Lab Data Labs: Laboratory Results - last 24 hr 06/20/25 06/20/25 08:48 11:01 WBC 28.5 H RBC 4.77 Hgb 14.3 Hct 41.5 MCV 87.0 MCH 30.0 MCHC 34.5 RDW Std Deviation 42.5 RDW Coeff of Leslie 13.5 Plt Count 252 MPV 10.6 Immature Gran % (Auto) 1.400 H Neut % (Auto) 89.2 H Lymph % (Auto) 3.5 L [place] % (Auto) 5.6 Eos % (Auto) 0.0 Baso % (Auto) 0.3 Absolute Neuts (auto) 25.4 H Absolute Lymphs (auto) 0.99 Nucleated RBC % 0 Differential Comment PT 19.6 H INR 1.6 APTT 35.6 Sodium 138 Potassium 3.7 Chloride 99 Carbon Dioxide 24.3 Anion Gap 15 BUN 17 Creatinine 0.93 Estim Creat Clear Calc 32.34 L Est GFR (MDRD) Non-Af 60 BUN/Creatinine Ratio 18.1 Glucose 149 H Calcium 9.9 Total Bilirubin 2.15 H Direct Bilirubin 0.85 H AST 47 H ALT 19 Alkaline Phosphatase 121 H Total Creatine Kinase 914 H Total Protein 7.7 Albumin 4.3 Globulin 3.5 Urine Color Yellow Urine Clarity Clear Urine pH 5.0 Ur Specific [place] 1.015 Urine Protein 30 H Urine Glucose (UA) Normal Urine Ketones 5 H Urine Occult Blood 150 H Urine Nitrite Positive H Urine Bilirubin Negative Urine Urobilinogen Normal Ur Leukocyte Esterase 100 H Urine RBC 10-25 SEEN Urine WBC 0 SEEN Ur Squamous Epith Cells 0-5 SEEN Urine Bacteria 1+ Urine Mucus 0 SEEN Radiography Diagnostic Testing: Clinical Impression(s) from Imaging Studies Brain CT 06/20/25 08:47 IMPRESSION: No acute intracranial findings. Chronic findings as described. Reading Location: [facility] Cervical Spine CT 06/20/25 08:48 IMPRESSION: NO ACUTE CERVICAL FRACTURE. DEGENERATIVE CHANGES. Reading Location: [facility] Chest/Abdomen/Pelvis CT 06/20/25 08:48 IMPRESSION: CT chest: 1. No acute thoracic finding. 2. Persistent findings of pulmonary fibrosis, most compatible with IPF. Thoracic lymphadenopathy can be seen with IPF, however correlation with prior examination is recommended if available. CT abdomen/pelvis: 1. No acute abdominopelvic finding. 2. Partially calcified, enhancing right ovarian nodule, which is indeterminate in etiology and may represent benign or malignant pathology. Correlation with nonemergent, routine pelvic ultrasound recommended for further evaluation. Reading Location: [facility] Elbow X-Ray 06/20/25 09:50 IMPRESSION: Osteopenia, no demonstrated fracture or joint space abnormalities Reading Location: [facility] Hip/Pelvis X-Ray 06/20/25 09:50 IMPRESSION: Despite the presence of surgical hardware in the left femur, I suspect there is nonunion of the previously noted intertrochanteric fracture. There is still evidence of fracture lucency and cortical irregularity. No hardware complication noted. 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 Reading Location: [facility] Knee X-Ray 06/20/25 09:50 IMPRESSION: Tricompartmental arthrosis with chondrocalcinosis, no demonstrated acute fracture or suspicious osseous lesion Surgical hardware in the patella from previous ORIF free of complication Reading Location: [id number] Knee X-Ray 06/20/25 09:50 IMPRESSION: DEGENERATIVE OSTEOARTHROSIS. NO ACUTE FINDINGS. Reading Location: [facility] Discharge Plan Triage Chief Complaint: Fall ED Provider: Wesley Jones Dx/Rx/DC Orders Clinical Impression: Fall, Hypothyroidism, Dementia, Generalized weakness Prescriptions: No Action acetaminophen 500 mg Tablet 1,000 mg PO Q8 Qty: 0 0RF sennosides-docusate sodium [Stimulant Laxative Plus] 8.6-50 mg Tablet 1 tab PO BID Qty: 0 0RF Eliquis 5 mg Tablet 5 mg PO BID Qty: 0 0RF buspirone 5 mg tablet 5 mg PO BID clonazepam 0.5 mg tablet 0.5 mg PO Q8H PRN (Reason: anxiety) Rx Instructions: family states pt takes 1/2 tab am and 1 tab pm pretty routinely cholecalciferol (vitamin D3) 125 mcg (5,000 unit) capsule 125 mcg PO DAILY trazodone 50 mg tablet 50 mg PO QHS donepezil 10 mg tablet 10 mg PO DAILY levothyroxine 50 mcg tablet 50 mcg PO DAILY escitalopram oxalate 20 mg tablet 20 mg PO DAILY Patient Comments: PT TAKES AT BEDTIME. ascorbic acid (vitamin C) [C-500] 500 mg tablet 500 mg PO DAILY Primary Care Provider: Anaid Luna Referrals: Anaid Luna MD [Primary Care Provider] - Print Language: Palestinian Disposition Disposition: Acute Care Hospital [facility]
[2025-06-20 09:04] LABS: Hematocrit 41.5 % (37-47); Hemoglobin 14.3 g/dL (12.0-15.0); Immature Granulocytes Count 0.400 X10^3/uL (0.0-0.0); Mean Corp Hgb Conc 34.5 g/dL (32-36); Mean Corpuscular Volume 87.0 fL (81-99); Mean Platelet Vol. 10.6 fl (6.2-12.0); NRBC Flagged by Analyzer 0 % (0-5); POSITIVE DIFFERENTIAL YES; Platelet Count 252 K/mm3 (150-450); RBC Distribution Width CV 13.5 % (11.6-14.6); RBC Distribution Width SD 42.5 fl (35.1-43.9); Red Blood Count 4.77 M/mm3 (4.2-5.4); White Blood Count 28.5 K/mm3 (4.4-11.0)
[2025-06-20 09:05] LABS: Differential Indicated SCAN CRITERIA MET
[2025-06-20 09:13] LABS: Prothrombin Time (Protime)PT. 19.6 SECONDS (11.7-14.9)
[2025-06-20 09:14] LABS: Partial Thromboplast Time 35.6 Seconds (24.1-36.2)
--- OUTSIDE RECORDS SUMMARY | 2025-06-20 09:17 | XMS RPT_ITS | CCD ---
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 Vadim Florence DO Attending Provider Dr. Vadim Florence DO Emergency Provider Dr. Dillan Santiago MD Primary Care Provider Dr. Guerrero Valerio DO Emergency Provider Dr. Roro Long DO Admit Provider Dr. Roro Long DO Attending Provider Dr. Roro Long DO Other Provider Dr. [place] Rosas DO Other Provider Chelsea DELACRUZ, Dr. Allison Nicholson Attending Provider Chelsea DELACRUZ, Dr. Allison Nicholson Other Provider Srinath DELACRUZ, Dr. Garfield Hernandez Admit Provider Srinath DELACRUZ, Dr. Garfield Hernandez Attending Provider Srinath DELACRUZ, Dr. Garfield Hernandez Referring Provider Sean DELACRUZ, Dr. Fierro Attending Provider [phone] Adele Gusman MD Attending Provider Unavaila moraima Morgan FARMER DIVERSIFIED CROPS-C, Daya Attending Provider Adele Gusman MD Referring Provider Unavaila moraima Darby MD, Dr. Lane Emergency Provider Dr. Dillan Santiago MD Primary Care Provider Naseem DELACRUZ, Dr. Angulo Attending Provider Wilner DELACRUZ, Dr. Lane Attending Provider Eddie FARMER DIVERSIFIED CROPS-C, Daya Attending Provider OLDER, MARIPOSA Referring Unavailable GANTA, DILLAN Primary Care Unavailable GANTA, DILLAN Attending Unavailable OLDER, MARIPOSA Referring Unavailable GANTA, DILLAN Primary Care Unavailable OLDER, MARIPOSA Attending Unavailable GANTA, DILLAN Primary Care Unavailable GANTA, DILLAN Primary Care Unavailable GANTA, DILLAN Attending Unavailable GANTA, DILLAN Referring Unavailable GANTA, DILLAN Primary Care Unavailable GANTA, DILLAN Primary Care Unavailable GANTA, DILLAN Attending Unavailable GANTA, DILLAN Primary Care Unavailable GANTA, DILLAN Attending Unavailable GANTA, DILLAN Primary Care Unavailable GANTA, DILLAN Primary Care Unavailable OLDER, MARIPOSA Attending Unavailable GANTA, DILLAN Referring Unavailable GANTA, DILLAN Primary Care Unavailable SELF Referring Unavailable GANTA, DILLAN Primary Care Unavailable GANTA, DILLAN Attending Unavailable OLDER, MARIPOSA Referring Unavailable GANTA, DILLAN Primary Care Unavailable TOM BALTAZAR Attending Unavailable Ganta, Dillan Primary Care Unavailable Oleghe OLS, Efewongbe Referring Unavailabl e Oleghe OLS Efewongbe Attending Unavailabl e Srinath, Garfield Chi Referring Unavailable Srinath, Garfield Chi Attending Unavailable Ganta, Dillan Primary Care Unavailable Martyttle, Boston Consulting Unavailable Ganta, Dillan Primary Care Unavailable Ethan, Roro Admitting Unavailable Koram, Allison Lyn Attending Unavailable Ethan, Roro Consulting Unavailable Koram, Allison Lyn Consulting Unavailable Srinath, Garfield Chi Referring Unavailable Ganta, Dillan Primary Care Unavailable Vadim Estrada Attending Unavailable Ganta, Dillan Primary Care Unavailable Oleghe, Efewongbe Attending Unavailable Ganta, Dillan Primary Care Unavailable T[place]ton FARMER DIVERSIFIED CROPS, Daya Attending Unavailable Ganta, Dillan Primary Care Unavailable Joannton FARMER DIVERSIFIED CROPS, Daya Attending Unavailable Ethan, Roro Attending Unavailable Ganta, Dillan Primary Care Unavailable Domingo Darby Attending Unavailable [facility] Unavailable Vadim Florence Attending Unavailable [facility] Unavailable Adele Contreras Attending UnavailDaya Richards Attending Unavailable [facility] Unavailable [facility] Unavailable Allison Tran Attending Unavailable Roro Long Admitting Unavailable Boston Rosas Consulting Unavailable Roro Long Consulting Unavailable Garfield Yo Chi Attending Unavailable Srinath, Garfield Chi Admitting Unavailable [facility] Unavailable Medications Current Medications Medication Drug Class(es) Dates Sig (Normalized) Sig (Original) acetaminophen 500 mg oral tablet (12 sources) Start: 03-16-2025 take 2 tablets by mouth every eight hours Acetaminophen 500 mg Tablet Active 1000 mg PO EVERY 8 HOURS 0 0 March 16, 2025 12:00am Start: 03-04-2025 End: 03-16-2025 Acetaminophen (Aphen) 325 mg tablet Discontinued 650 mg PO EVERY 6 HOURS as needed for pain 30 1 March 04, 2025 12:00am March 16, 2025 8:16pm amLODIPine (1 source) Dihydropyridine Calcium Channel Deshawn Start: 10-29-2019 amLODIPine Active October 29, 2019 12:00am apixaban 5 mg oral tablet (14 sources) Factor Xa Inhibitor Start: 03-16-2025 End: [...] mg PO DAILY March 01, 2025 12:00am supplement Start: 10-29-2019 Vitamin C Acti ve October 29, 2019 12:00am ascorbic acid (V ITAMIN C ORAL) Take by mouth once daily. Active busPIRone hydrochloride 5 mg oral tablet (7 sources) Start: 05-06-2025 take 1 tablet by mouth twice daily busPIRone (BUSPAR) 5 mg tablet Take 1 tablet by mouth two times a day. 60 tablet 3 05/06/2025 Active Catheter (SELF-CATHETER, FEMALE) 14 Fr misc (20 sources) Catheter (SELF-CATHETER, FEMALE) 14 Fr misc Self catheterizes four times daily Active cephalexin 500 mg oral capsule (16 sources) Cephalosporin Antibacterial Start: 05-17-2025 take 1 capsule by mouth every six hours Cephalexin 500 mg capsule Active 500 mg PO EVERY 6 HOURS 28 7 0 May 17, 2025 12:00am Acute urinary tract infection Urinary tract infection, site not specified Start: 02-19-2025 End: 02-26-2025 take 1 capsule [...] PO THREE TIMES A DAY 21 7 0 January 17, 2025 1:00am March 01, 2025 12:29pm citalopram 20 mg oral tablet (18 sources) Serotonin Reuptake Inhibitor Start: 04-20-2025 take 1 tablet by mouth once daily citalopram (CELEXA) 20 mg tablet Take 1 tablet by mouth once daily. 30 tablet 2 04/20/2025 Active Start: 10-29-2019 Citalopram Act morro October 29, 2019 12:00am clonazePAM 0.5 mg oral tablet (20 sources) Benzodiazepine Start: 03-16-2025 End: 05-04-2025 Clonazepam 0.5 mg tablet Discontinued 0.25 mg PO 0600 7 14 0 April 20, 2025 6:14am May 03, 2025 12:00am May 04, 2025 12:07am Start: 01-31-2025 End: 07-03-2025 take 1 tablet by mouth three times daily as needed for anxiety clonazePAM (KLONOPIN) 0.5 mg tablet Indications: Anxiety and depression Take 1 tablet by mouth three times a day as needed for anxiety for up to 30 days. 45 tablet 06/03/2025 07/03/2025 Active Start: 01-31-2025 End: 01-26-2025 take 1 [...] Discontinued docusate sodium 50 mg / sennosides, correction 8.6 mg oral tablet (5 sources) Start: 03-16-2025 Sennosides-Doc usate Sodium (Stimulant Laxative Plus) 8.6-50 mg Tablet Active 1 {tbl} PO TWICE A DAY 0 0 March 16, 2025 12:00am donepezil hydrochloride [...] mg PO DAILY March 01, 2025 12:00am anxiety furosemide 20 mg oral tablet (8 sources) Loop Diuretic Start: 05-06-2025 furosemide (LA [...] 12:00am sodium chloride 0.154 meq/ml irrigation solution (8 sources) Start: 05-06-2025 sodium chlorid e 0.9 % IRRIGATION Indications: Urine retention Irrigate 60 mL as instructed once daily as needed. 2000 mL 3 05/06/2025 Active traMADol hydrochloride 50 mg oral tablet (5 sources) Opioid Agonist Start: 03-16-2025 take 1 tablet by mouth every six hours as needed for pain Tramadol 50 mg Tablet Active 50 mg PO EVERY 6 HOURS NEEDED as needed for Pain Score 1-5 12 3 0 March 16, 2025 12:00am traZODone hydrochloride 50 mg oral tablet (20 sources) Serotonin Reuptake Inhibitor Start: 11-05-2024 End: 04-20-2025 take 1 tablet by mouth at bedtime Trazodone 50 mg tablet Active 50 mg PO AT BEDTIME March 01, 2025 12:00am anxiety Start: 10-29-2019 Trazodone Acti ve October 29, 2019 12:00am Vitamin D (1 source) Start: 10-29-2019 Vitamin D Acti ve October 29, 2019 12:00am Completed/Discontinued Medications Medication Drug Class(es) Dates Sig (Normalized) Sig (Original) ALPRAZolam (1 source) Benzodiazepine Start: 10-29-2019 End: 01-17-2024 Xanax Discontinued Every Day At Bedtime October 29, 2019 12:00am January 17, 2024 1:21pm aspirin 81 mg oral tablet (7 sources) Platelet Aggregation Inhibitor, Nonsteroidal Anti-inflammatory Drug Start: 03-04-2025 End: 03-16-2025 take 1 capsule by mouth twice daily Aspirin 81 mg capsule Discontinued 81 mg PO TWICE A DAY 56 28 0 March 04, 2025 12:00am March 16, 2025 8:17pm prophylactic Barlow Red (1 source) Start: 10-29-2019 End: 01-17-2024 Barlow Red Discontinued October 29, 2019 12:00am January 17, 2024 1:21pm One Daily Complete Tablet (1 source) Start: 10-29-2019 End: 01-17-2024 One Daily Complete Tablet Discontinued October 29, 2019 12:00am January 17, 2024 1:21pm Problems Active Problems Problem Classification Problem Date Documented Da te Episodic/Chronic Acquired foot deformities (4 sources) Acquired deformity of toe; Translations: [Acquired deformities of toe(s), unspecified, unspecified foot] Onset: 5 06-03-2025 Episodic Anxiety disorders (20 sources) Mixed anxiety and depressive disorder; Translations: [Anxiety disorder, unspecified] Onset: 5 11-05-2024 Chronic Chronic ulcer of skin (20 sources) Pressure ulcer of sacral region, unstageable; Translations: [Pressure ulcer, lower back] Onset: 5 04-17-2025 Chronic Congestive heart failure; nonhypertensive (4 sources) Acute heart failure; Translations: [Heart failure, unspecified] Onset: 5 05-06-2025 Chronic Delirium, dementia, and amnestic and other cognitive disorders (20 sources) Presenile dementia; 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] Onset: 5 02-04-2025 Chronic Diabetes mellitus without complication (2 sources) Prediabetes; Translations: [Prediabetes] Onset: 5 05-06-2025 Episodic E Codes: Fall (20 sources) Fall; Translations: [Unspecified fall, initial encounter] Onset: 5 03-01-2025 Episodic Essential hypertension (2 sources) Essential (primary) hypertension; Translations: [Essential (primary) hypertension] Onset: Chronic Fracture of neck of femur (hip) (20 sources) Closed intertrochanteric fracture; Translations: [Displaced intertrochanteric fracture of left femur, initial encounter for closed fracture] Onset: 5 03-01-2025 Episodic Genitourinary symptoms and ill-defined conditions (20 sources) Urinary catheter in situ; Translations: [Presence of urogenital implants] Onset: 5 04-17-2025 Chronic Genitourinary symptoms and ill-defined conditions (20 sources) Unable to void urine; Translations: [Retention of urine, unspecified] Onset: 4 11-05-2024 Episodic Malaise and fatigue (12 sources) Asthenia; Translations: [Other malaise] 03-04-2025 Episodic Miscellaneous mental health disorders (1 source) Insomnia disorder related to another mental disorder; Translations: [Insomnia due to other mental disorder] 02-04-2025 Chronic Mood disorders (12 sources) Depressive disorder; Translations: [Depression] 03-04-2025 Chronic Mood disorders (1 source) Mood disorders; Translations: [Anxiety and depression] Onset: 5 Mycoses (5 sources) Onychomycosis; Translations: [Tinea unguium] Onset: 5 04-24-2025 Episodic Nutritional deficiencies (1 source) Undernutrition; Translations: [Unspecified protein-calorie malnutrition] 04-17-2025 Chronic Osteoarthritis (2 sources) Bilateral osteoarthritis of knees; Translations: [Bilateral primary osteoarthritis of knee] 01-17-2024 Chronic Other aftercare (1 source) Long-term current use of anticoagulant; Translations: [chief ultrasound technologist (current) use of anticoagulants] 04-17-2025 Episodic Other aftercare (1 source) Encounter for other orthopedic aftercare; Translations: [Encounter for other orthopedic aftercare] Onset: Episodic Other circulatory disease (4 sources) H/O: hypertension; Translations: [Personal history of other diseases of the circulatory system] 05-17-2025 Episodic Other connective tissue disease (20 sources) [...] (1 source) Impaired cognition 01-24-2025 Episodic Other non-traumatic joint disorders (20 sources) Pain in left knee; Translations: [Left knee pain] Onset: 5 01-16-2024 Episodic Other skin disorders (2 sources) Thickened nails; Translations: [Onychogryphosis] 06-03-2025 Episodic Other skin disorders (2 sources) Ingrowing toenail; Translations: [Ingrowing nail] 06-03-2025 Episodic Other skin disorders (1 source) Onychogryphosis; Translations: [Thickened nail] Onset: 5 Episodic Other skin disorders (1 source) Ingrowing nail; Translations: [IGTN (ingrowing toe nail)] Onset: Episodic Phlebitis; thrombophlebitis and thromboembolism (2 sources) Acute deep vein thrombosis of lower limb; Translations: [Acute embolism and thrombosis of unspecified deep veins of left proximal lower extremity] 04-17-2025 Episodic Residual codes; unclassified (3 sources) Dependence on other enabling machines and devices; Translations: [Dependence on other enabling machines] Onset: 5 11-05-2024 Chronic Residual codes; unclassified (5 sources) Finding related to ability to manage personal health care; Translations: [Other specified health status] 11-05-2024 Episodic Residual codes; unclassified (13 sources) Insomnia; Translations: [Insomnia, unspecified] 03-04-2025 Episodic Residual codes; unclassified (1 source) Edema; Translations: [Edema, unspecified] 05-06-2025 Episodic Residual codes; unclassified (1 source) Disorientation, unspecified; Translations: [Disorientation, unspecified] Onset: 5 Episodic Screening and history of mental health and substance abuse codes (4 sources) H/O: dementia; Translations: [Personal history of other mental and behavioral disorders] 05-17-2025 Episodic Thyroid disorders (17 sources) Hypothyroidism; Translations: [Hypothyroidism, unspecified] Onset: 4 11-05-2024 Chronic Unclassified (1 source) Finding related to ability to manage personal health care 06-03-2025 Unclassified (1 source) 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); Translations: [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)] Onset: 5 Unclassified (2 sources) Acute embolism and thrombosis of left peroneal vein; Translations: [Acute embolism and thrombosis of left peroneal vein] Onset: Urinary tract infections (16 sources) Recurrent urinary tract infection; Translations: [Urinary tract infection, site not specified] Onset: 5 02-19-2025 Episodic Past or Other Problems Problem Classification Problem Date Documented Date Episodic/Chronic Administrative/social admission (8 sources) First encounter by subject; Translations: [Persons encountering health services in other specified circumstances] Onset: 11-05-2024 11-05-2024 Episodic Other nervous system disorders (1 source) Other abnormalities of gait and mobility; Translations: [Balance disorder] Onset: 12-10-2024 Episodic Other screening for suspected conditions (not mental disorders or infectious disease) (2 sources) Patient encounter status; Translations: [Encounter for screening for lipoid disorders] Onset: 11-17-2024 11-05-2024 Episodic Residual codes; unclassified (1 source) Other specified health status; Translations: [Self-catheterizes urinary bladder] Onset: 12-10-2024 Episodic Results Test Name Value Interpretation Reference Range Facility [facility] 06-03-2025 CNOV Office Visit (MANUEL ) CRYSTALMICHAELA DORMAN ([id number]) 1940 F Date Time Provider Department 06/03/25 11:00 AM DILLAN SANTIAGO During your visit today, we recorded the following information about you: Pulse Respiration Blood pressure Weight 64/minute 16/minute 134/71 54.2 kg Dillan Santiago MD 06/03/2025 12:05 PM Signed We discussed your urinary health and recurrent urinary tract infections (UTIs): - You are currently self-catheterizing four times a day, which increases the risk of recurrent infections. - We discussed the option of a suprapubic catheter to reduce the frequency of infections. This would involve a minor outpatient procedure where a catheter is placed through the abdomen into the bladder. - The procedure would require a short recovery period (2-3 days) and minimal pain management. - The catheter would need periodic maintenance, with follow-ups potentially every 1-3 months. - This option may be more comfortable and reduce the risk of infections compared to self-catheterization or a Lizarraga catheter. - You expressed interest in pursuing the suprapubic catheter as it may be more beneficial for your health and easier to manage. - I will place a referral to urology for further evaluation and to discuss the procedure in detail. We discussed your toenail health: - You have onychomycosis (thickened, discolored toenails) and toe deformities caused by the nail growth. - This condition requires specialized care from a senior communications specialist, as regular nail trimming is not sufficient. - You already have an appointment scheduled with podiatry in June. At that visit, they will assess your nails and provide appropriate treatment. - I documented the findings in your chart to ensure the senior communications specialist is aware of the condition and can address it during your appointment. We discussed your heart health: - You previously declined a scheduled echocardiogram to assess your heart function. - You agreed to reschedule the echocardiogram, which can be done at this clinic. This test will help us monitor your heart health. We discussed your medications: - I refilled your prescription for Clonazepam. You are taking half a tablet in the morning and a full tablet in the evening to help with sleep. - Please continue taking your medications as prescribed. Next steps: - I will send a referral to urology for evaluation of the suprapubic catheter. - Please attend your podiatry appointment in June for nail care and treatment of onychomycosis. - We will assist in rescheduling your echocardiogram. - Continue self-catheterization as instructed until you meet with the urologist. Monitor for signs of infection, such as fever, increased confusion, or changes in urine color or odor, and notify us immediately if these occur. If you have any questions or concerns, please contact our office. Dillan Santiago MD 06/03/2025 12:31 PM Signed Reason for Visit Follow up HPI Michaela Brandt is a 84-year-old female, with a history of hip fracture and recurrent UTIs, presenting for follow-up. Michaela is currently residing in an apartment and receiving home health services, including weekly visits from a skilled nurse, PT, and OT. She reports that the frequency of these services has been reduced due to cost concerns. Her daughter, who is present and providing history, notes that the skilled nurse has extended services for a few more weeks. Michaela sustained a hip fracture, which was repaired surgically. She reports that the surgery was painful but states that the hip is no longer causing her problems. She is currently using a wheelchair for mobility. Michaela has a history of recurrent UTIs and is currently performing self-catheterization four times a day. Her daughter notes that Michaela had a UTI about a month ago, which was treated at [facility]. Michaela expresses reluctance to continue self-catheterization due to the risk of introducing infections and is considering a suprapubic catheter as an alternative. Michaela has not yet undergone an echocardiogram that was previously scheduled. She expresses a desire to reschedule the appointment. Michaela is also experiencing issues with thickened toenails, which are causing discomfort when wearing shoes. She has an appointment with a senior communications specialist next month for evaluation and treatment. Michaela is currently taking clonazepam, half a tablet in the morning and a full tablet in the evening, to help with sleep. She also takes vitamins C and D. She expresses concern about the number of medications she is taking. Michaela is facing legal issues with her sister, who is seeking guardianship. Michaela's daughter, who currently holds power of business attorney, is trying to prevent this. Michaela expresses a desire to maintain her independence and make her own decisions. Social History Tobacco Use Smoking status: Ne (more content not included)... [facility] MICHAELA BRANDT ([id number]) 1940 F Date Time Provider Department 05/20/25 DILLAN SANTIAGO INT[facility] During your visit today, we recorded the following information about you: Jagruti Veliz 05/20/2025 10:53 AM Signed Patient's daughter dropped off forms that need filled out and faxed to [facility] Enrique, TOBIAS Cueto, att [phone]. Forms given to nurse. Please assist. Mike Guo MA 05/20/2025 5:03 PM Signed Forms given to PCP for review/signature. EVON Rouse Brittany L, MA 05/26/2025 11:29 AM Signed Forms completed and faxed back to # provided: [phone]. Mike Guo MA Allergies As of Date: 05/20/2025 (No Known Allergies) Date Reviewed: 05/06/2025 Reviewed by: Stefanie Schaffer LPN - Fully Assessed Reason for Visit: Forms [913] Prescriptions as of 05/26/2025 - sodium chloride 0.9 % IRRIGATION Irrigate [...] once daily. Problem List As Of Date 05/20/2025 Noted Resolved Urinary catheter in place [Z96.0] 04/17/2025 Ambulatory dysfunction [R26.2] 04/17/2025 Pressure injury of sacral region, unstageable (*04/17/2025 DELMY (dementia of Alzheimer type) (HCC) [G30.9, *04/17/2025 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] 04/17/2025 Closed fracture of left hip (HCC) [S72.002A] 04/17/2025 Balance disorder [R26.89] 04/17/2025 Weakness of both lower extremities [R29.898] 04/17/2025 Encounter Status:Closed by MIKE GUO on 05/26/25 Normal [facility] Urine Cultureon 05-19-2025 [facility] Escherichia coli [place] Count 80,000-100,000 Escherichia coli: REACTION Ampicillin Islt CARLTON <=2 Ampicillin+Sulbac Islt CARLTON <=2 S Cefepime Islt CARLTON <=0.12 S cefTRIAXone Islt CARLTON <=0.25 S Ciprofloxacin Islt CARLTON <=0.06 S B-Lactamase Extended Susc Islt NEG Gentamicin Islt CARLTON <=1 S levoFLOXacin Islt CARLTON <=0.12 S Meropenem Islt CARLTON <=0.25 S Nitrofurantoin Islt CARLTON <=16 S Pip+Tazo Islt CARLTON <=4 S TMP SMX Islt CARLTON <=20 S Normal [facility] Comment on above: Performed By: #### M 100.2200 ####[facility] [id number] [place], [place], [id number] Absolute lymphocyte countOrd ered By: Domingo Darby on 05-17-2025 Lymphocytes Auto (Unsp spec) [#/Vol] 1.24 10*3/uL 0.83-4.51 [facility] Absolute neutrophil countOrd ered By: Domingo Darby on 05-17-2025 Neutrophils (Bld) [#/Vol] 6.9 10*3/uL 2.0-7.7 [facility] Anion gap in Serum or Plasma Ordered By: Domingo Darby on 05-17-2025 Anion gap [Moles/Vol] 12 mmol/L 5-15 [facility] Automated lymphocyte count a s percentage of total leukocytesOrdered By: Domingo Darby on 05-17-2025 Lymphocytes/100 WBC Auto (Unsp spec) 14.1 % Low 19-41 [facility] BUN/creatinine ratioOrdered By: Domingo Darby on 05-17-2025 Urea nitrogen/Creatinine [Mass ratio] 15.6 mg/mg 10-20 [facility] Basic Metabolic Profile (BMP )on 05-17-2025 BUN/CRE 15.6 RATIO Normal 10-20 [facility] Comment on above: Performed By: #### L 100.0100, L500.2500 ####[facility] [id number] [place], [address] Calcium [Mass/Vol] 9.0 mg/dL Normal 7.6-11.[address] [facility] Comment on above: Performed By: #### L 100.0100, L500.2500 ####[facility] [id number] [place], [address] Chloride [Moles/Vol] 104 mmol/L Normal 98-108 [facility] Comment on above: Performed By: #### L 100.0100, L500.2500 ####[facility] [address] [place], [address] CO2 [Moles/Vol] 26.5 mmol/L Normal 21.0-32.0 [facility] Comment on above: Performed By: #### L 100.0100, L500.2500 ####[facility] [address] [place], [address] Creatinine [Mass/Vol] 0.96 mg/dL Normal 0.70-1.20 [facility] Comment on above: Performed By: #### L 100.0100, L500.2500 ####[facility] [address] [place], [address] GAP 12 Normal 5-15 [facility] Comment on above: Performed By: #### L 100.0100, L500.2500 ####[facility] [address] [place], [address] GFR/1.73 sq M.predicted among non-blacks MDRD (S/P/Bld) [Vol rate/Area] 58 mL/min/{1.73_m2} Low >60 [facility] Comment on above: Result Comment: mL/m in/1.73m2 CKD-EPI Creatinine Equation (2020) Performed By: #### L 100.0100, L500.2500 ####[facility] [address] [place], [address] Glucose [Mass/Vol] 97 mg/dL Normal 70-[address] [facility] Comment on above: Performed By: #### L 100.0100, L500.2500 ####[facility] [address] [place], [address] Potassium [Moles/Vol] 3.9 mmol/L Normal 3.3-5.1 [facility] Comment on above: Result Comment: Hemo lysis present, Results??could be affected. ?? Performed By: #### L 100.0100, L500.2500 ####[facility] [address] [place], [address] Sodium [Moles/Vol] 142 mmol/L Normal 133-[address] [facility] Comment on above: Performed By: #### L 100.0100, L500.2500 ####[facility] [address] [place], [address] Urea nitrogen [Mass/Vol] 15 mg/dL Normal 4-19 [facility] Comment on above: Performed By: #### L 100.0100, L500.2500 ####[facility] [address] [place], [address] Basophil percentageOrdered B y: Domingo Darby on 05-17-2025 Basophils/100 WBC (Bld) 0.6 % 0-[address] [facility] Bilirubin Test strip Ql (U)O rdered By: Domingo aDrby on 05-17-2025 Bilirubin Ql (U) Negative Negative [facility] CBC W/Diff, Automatedon 04-20 Absolute Lymph 1.24 X10 3/uL Normal 0.83-4.51 [facility] Comment on above: Performed By: #### L 100.0100, L500.2500 ####[facility] [address] [place], [address] Absolute Neut 6.9 X10 3/uL Normal 2.0-7.7 [facility] Comment on above: Performed By: #### L 100.0100, L500.2500 ####[facility] [address] [place], [address] Basophils/100 WBC (Bld) 0.6 % Normal 0-[address] [facility] Comment on above: Performed By: #### L 100.0100, L500.2500 ####[facility] [address] [place], [address] Eosinophils/100 WBC (Bld) 0.9 % Normal 0-5 [facility] Comment on above: Performed By: #### L 100.0100, L500.2500 ####[facility] [address] [place], [address] Erythrocyte distribution width (RBC) [Ratio] 13.1 % Normal 11.6-14.6 [facility] Comment on above: Performed By: #### L 100.0100, L500.2500 ####[facility] [address] [place], [address] Hematocrit (Bld) [Volume fraction] 36.5 % Low 37-47 [facility] Comment on above: Performed By: #### L 100.0100, L500.2500 ####[facility] [address] [place], [address] Hemoglobin (Bld) [Mass/Vol] 12.5 g/dL Normal 12.0-15.0 [facility] Comment on above: Performed By: #### L 100.0100, L500.2500 ####[facility] [address] [place], [address] IG% 0.500 Normal 0.0-0.9 [facility] Comment on above: Result Comment: IG% - Immature Granulocytes (promyelocytes, myelocytes and metamyelocytes) > 1% indicates that a LEFT SHIFT is Present. Performed By: #### L 100.0100, L500.2500 ####[facility] [address] [place], [address] Lymphocytes/100 WBC (Bld) 14.1 % Low 19-41 [facility] Comment on above: Performed By: #### L 100.0100, L500.2500 ####[facility] [address] [place], [address] MCH (RBC) [Entitic mass] 30.0 pg Normal 27.0-32.0 [facility] Comment on above: Performed By: #### L 100.0100, L500.2500 ####[facility] [address] [place], [address] MCHC (RBC) [Mass/Vol] 34.2 g/dL Normal 32-36 [facility] Comment on above: Performed By: #### L 100.0100, L500.2500 ####[facility] [address] [place], [address] MCV (RBC) [Entitic vol] 87.5 fL Normal 81-[address] [facility] Comment on above: Performed By: #### L 100.0100, L500.2500 ####[facility] [address] [place], [address] Monocytes/100 WBC (Bld) 5.1 % Normal 0-[address] [facility] Comment on above: Performed By: #### L 100.0100, L500.2500 ####[facility] [address] [place], [address] Neutrophils/100 WBC (Bld) 78.8 % High 47-70 [facility] Comment on above: Performed By: #### L 100.0100, L500.2500 ####[facility] [address] [place], [address] Nucleated RBC (Bld) [#/Vol] 0 10*3/uL Normal 0-5 [facility] Comment on above: Performed By: #### L 100.0100, L500.2500 ####[facility] [address] [place], [address] Platelet mean volume (Bld) [Entitic vol] 10.4 fL Normal 6.2-12.0 [facility] Comment on above: Performed By: #### L 100.0100, L500.2500 ####[facility] [address] [place], [address] Platelets (Bld) [#/Vol] 181 10*3/uL Normal 150-450 [facility] Comment on above: Performed By: #### L 100.0100, L500.2500 ####[facility] [address] [place], [address] RBC (Bld) [#/Vol] 4.17 10*6/uL Low 4.2-5.4 [facility] Comment on above: Performed By: #### L 100.0100, L500.2500 ####[facility] [address] [place], [address] RDW SD 41.9 fl Normal 35.1-43.9 [facility] Comment on above: Performed By: #### L 100.0100, L500.2500 ####[facility] [address] [place], [address] WBC (Bld) [#/Vol] 8.8 10*3/uL Normal 4.4-11.[address] [facility] Comment on above: Performed By: #### L 100.0100, L500.2500 ####[facility] [address] [place], [address] Carbon dioxide, total [Moles /volume] in Central venous bloodOrdered By: Domingo Darby on 05-17-2025 CO2 [Moles/Vol] 26.5 mmol/L 21.0-32.0 [facility] Chloride assayOrdered By: Kodak Darby on 05-17-2025 Chloride [Moles/Vol] 104 mmol/L 98-108 [facility] Summary on 05-17-2025 Emergency Department Summary [facility] Medical Records Department [address] [place] [address] Emergency Department Summary 05/17/25 MR#: [id number] Acct: [id number] Name: MICHAELA BRANDT Rep #: [id number] : 1940 84 From: Domingo Darby MD PCP: Dr. Dillan Santiago MD Status:REG ER Location: ED HPI History of Present Illness Chief Complaint: Confusion Informant: patient and family (Daughter) Onset/Context/Timing Onset: Days Context: Gradual Onset Timing: Continuous Current Severity: Mild Maximum Severity: Mild Narrative Narrative: 84-year-old female history of prior left hip fracture in February. Dementia. Self-catheterization and hypertension. She lives in an apartment. Daughter as healthy is here to help her occupational and physical therapy and some custodial. They also have cameras in and keep an eye on her and daughter lives very close to her. Daughter states the last couple days she has had some mild change in her mental status she is concerned she has a recurrent UTI they have had similar symptoms like this in the past when she gets urinary tract infections. Denies fever. Denies vomiting or diarrhea. No recent fall or head trauma. Patient denies any complaints. Patient has had urinary tract infections this year and has been on antibiotics. Typically was treated as an outpatient. Prior similar symptoms: Yes Recent Illness/Hospitalizatio n: Yes PFSH PFSH Medical History Closed intertrochanteric fracture of left hip Fall Hypothyroidism Anxiety Dementia Self-catheterizes urinary bladder Hypertension Back pain Home Medications ???Medication ???Instructions ???Recorded ???Last Taken ???Type ascorbic acid (vitamin C) 500 mg 500 mg PO DAILY supplement 5 03/04/25 History tablet (C-500) donepezil 10 mg tablet 10 mg PO DAILY dementia 03/01/25 0 03/04/25 History escitalopram oxalate 20 mg tablet 20 mg PO DAILY anxiety 03/01/25 0 03/03/25 History levothyroxine 50 mcg tablet 50 mcg PO DAILY thyroid 03/01/25 0 03/04/25 History trazodone 50 mg tablet 50 mg PO QHS anxiety 03/01/25/04/12 History acetaminophen 500 mg tablet 1,000 mg (2 x 500 mg) PO Q8 #0 tab s 03/16/25 Unknown Rx apixaban 5 mg tablet (Eliquis) 5 mg PO BID #0 tabs 03/16/25 Unkno wn Rx sennosides 8.6 mg-docusate sodium 1 tab PO BID #0 tabs 03/16/25 Unk nown Rx 50 mg tablet (Stimulant Laxative Plus) tramadol 50 mg tablet 50 mg PO Q6H PRN PRN Pain Score Unknown Rx 1-5 3 days #12 tabs cephalexin 500 mg capsule 500 mg PO Q6 7 days #28 CAPSULES 0 05/17/25 Unknown Rx Allergy/AdvReac Type Severity Reaction Status Date / Time No Known Allergies Allergy Verified 05/17/25 09:33 Family History Other Hypertension Surgical History H/O: hysterectomy Status post right knee replacement Social History household members: none housing: apartment current occupational status: retired other: Daughter lives a few doors down helps her on a regular basis Smoking Status: Never smoker alcohol intake: never substance use type: does not use ROS ROS ED ROS Narrative No recent illness. No vomiting or diarrhea. No fever. No dysuria. Constitutional Constitutional ED: Denies chills or fever(s) Eyes Eyes: Denies blurry vision ENT ENT ED: Denies ear pain Cardiovascular Cardiovascular: Denies chest pain Respiratory/Chest Respiratory/Chest: Denies cough or dyspnea Gastrointestinal Gastrointestinal: Reports other; Denies abdominal pain, constipation, diarrhea, melena, nausea or vomiting Genitourinary Genitourinary ED: Denies dysuria or hematuria Musculoskeletal Musculoskeletal: Denies arthralgias Integumentary Denies abscess Neurologic Neurologic: Denies headache(s) Psychiatric Psychiatric: Reports depression Endocrine Endocrinology: Denies cold intolerance Hematologic/Lymphatic Hematologic/Lymphatic: Reports none Allergic/Immunologic Allergic/Immunologic ED: Denies mouth swelling, tongue swelling or urticaria EXAM Physical Exam Narrative Exam Narrative: 84-year-old female sitting upright in bed. No acute distress. Daughter at bedside. Vital signs are stable afebrile. Pulse ox 100% on room air no hypoxia. H EENT exam pupils are reactive light. Moist membranes. No trauma. Neck no tender. No lymphadenopathy. Lungs clear to auscultation bilaterally. Heart regular rhythm rate about 70 no murmur. Chest wall ribs nontender. Abdomen soft nontender. Moving all 4 extremities. Calves are nontender without edema or cords. Back nontender. Neurologically she is awake. She is alert. She is answering questions. Following commands (more content not included)... Normal [facility] Eosinophil percentageOrdered By: Domingo Darby on 05-17-2025 Eosinophils/100 WBC (Bld) 0.9 % 0-5 [facility] Erythrocyte distribution wid th ratioOrdered By: Domingo Darby on 05-17-2025 Erythrocyte distribution width (RBC) [Ratio] 13.1 % 11.6-14.6 [facility] Erythrocyte distribution wid th standard deviationOrdered By: Domingo Darby on 05-17-2025 Erythrocyte distribution width (RBC) [Ratio] 41.9 fl 35.1-43.9 [facility] Glomerular filtration rate ( GFR) estimation/1.73 sq m using serum, plasma, or whole bOrdered By: Domingo Darby on 05-17-2025 GFR/1.73 sq M.predicted among non-blacks MDRD (S/P/Bld) [Vol rate/Area] 58 mL/min/{1.73_m2} Low >60 [facility] Comment on above: mL/min/1.73m2 CKD-EP I Creatinine Equation (2020) Hematocrit Auto (Bld) [Volum e fraction]Ordered By: Domingo Darby on 05-17-2025 Hematocrit (Bld) [Volume fraction] 36.5 % Low 37-47 [facility] Hemoglobin measurementOrdere d By: Domingo Darby on 05-17-2025 Hemoglobin (Bld) [Mass/Vol] 12.5 g/dL 12.0-15.0 [facility] Immature granulocytes/100 WB C Auto (Bld)Ordered By: Domingo Darby on 05-17-2025 Immature granulocytes/100 WBC (Bld) 0.500 % 0.0-0.9 [facility] Comment on above: IG% - Immature Granu locytes (promyelocytes, myelocytes and metamyelocytes) > 1% indicates that a LEFT SHIFT is Present. Ketones Test strip Ql (U)Ord ered By: Domingo Darby on 05-17-2025 Ketones Ql (U) Negative Negative [facility] MCV (mean corpuscular volume ) determinationOrdered By: Domingo Darby on 05-17-2025 MCV (RBC) [Entitic vol] 87.5 fL 81-[address] [facility] Mean corpuscular hemoglobin (MCH) determinationOrdered By: Domingo Darby on 05-17-2025 MCH (RBC) [Entitic mass] 30.0 pg 27.0-32.0 [facility] Mean corpuscular hemoglobin concentration (MCHC) determinationOrdered By: Domingo Darby on 05-17-2025 MCHC (RBC) [Mass/Vol] 34.2 g/dL 32-36 [facility] Mean platelet volume determi nationOrdered By: Domingo Darby on 05-17-2025 Platelet mean volume (Bld) [Entitic vol] 10.4 fL 6.2-12.0 [facility] Microscopic analysis of urin e for red blood cells (RBC)Ordered By: Domingo Darby on 05-17-2025 Microscopic analysis of urine for red blood cells (RBC) 0-5 SEEN /hpf 0-5 [facility] Monocyte percentageOrdered B y: Domingo Darby on 05-17-2025 Monocytes/100 WBC (Bld) 5.1 % 0-[address] [facility] Mucus LM Ql (Urine sed)Order ed By: Domingo Darby on 05-17-2025 Mucus Ql (Urine sed) 0 SEEN /hpf [facility] Neutrophil percentageOrdered By: Domingo Darby on 05-17-2025 Neutrophils/100 WBC (Bld) 78.8 % High 47-70 [facility] Nitrite Test strip Ql (U)Ord ered By: Domingo Darby on 05-17-2025 Nitrite Ql (U) Positive High Negative [facility] Nucleated red blood cell per centageOrdered By: Domingo Darby on 05-17-2025 Nucleated RBC/100 WBC (Bld) [Ratio] 0 % 0-5 [facility] Platelet countOrdered By: Kodak Darby on 05-17-2025 Platelets (Bld) [#/Vol] 181 10*3/uL 150-450 [facility] Potassium measurement (mass/ volume)Ordered By: Domingo Darby on 05-17-2025 Potassium (Unsp spec) [Mass/Vol] 3.9 mmol/L 3.3-5.1 [facility] Comment on above: Hemolysis present, R esults could be affected. Protein Test strip Ql (U)Ord ered By: Domingo Darby on 05-17-2025 Protein Ql (U) 30 mg/dl High Negative [facility] RBC Auto (Bld) [#/Vol]Ordere d By: Domingo Darby on 05-17-2025 RBC (Bld) [#/Vol] 4.17 10*6/uL Low 4.2-5.4 [facility] Serum creatinine measurement (mass/volume)Ordered By: Domingo Darby on 05-17-2025 Creatinine [Mass/Vol] 0.96 mg/dL 0.70-1.20 [facility] Serum glucose measurement (m ass/volume)Ordered By: Domingo Darby on 05-17-2025 Glucose [Mass/Vol] 97 mg/dL 70-[address] [facility] Serum or plasma calcium thomas urement (mass/volume)Ordered By: Domingo Darby on 05-17-2025 Calcium [Mass/Vol] 9.0 mg/dL 7.6-11.[address] [facility] Serum or plasma urea nitroge n measurement (mass/volume)Ordered By: Domingo Darby on 05-17-2025 Urea nitrogen [Mass/Vol] 15 mg/dL 4-19 [facility] Sodium levelOrdered By: Domingo Darby on 05-17-2025 Sodium [Moles/Vol] 142 mmol/L 133-[address] [facility] Squamous epithelial cells de tection in urine sediment by light microscopyOrdered By: Domingo Darby on 05-17-2025 Epithelial cells.squamous LM Ql (Urine sed) 0-5 SEEN /hpf 5-10 [facility] Urinalysis, Completeon 05-17 EPI,SQUAMOUS 0-5 SEEN Normal 5-10 [facility] Comment on above: Order Comment: CLEAN CATCH Performed By: #### L 400.0001 ####[facility] [address] [place], [address] RBC 0-5 SEEN Normal 0-5 [facility] Comment on above: Order Comment: CLEAN CATCH Performed By: #### L 400.0001 ####[facility] [address] [place], [address] WBC 50-100 SEEN Normal 0-5 [facility] Comment on above: Order Comment: CLEAN CATCH Performed By: #### L 400.0001 ####[facility] [address] [place], [address] BACTERIA 0 SEEN Normal None Seen [facility] Comment on above: Order Comment: CLEAN CATCH Performed By: #### L 400.0001 ####[facility] [address] [place], [address] Mucus Ql (Urine sed) 0 SEEN Normal [facility] Comment on above: Order Comment: CLEAN CATCH Performed By: #### L 400.0001 ####[facility] [address] [place], [address] Urine clarityOrdered By: Rey Darby on 05-17-2025 Clarity (U) Clear Clear [facility] Urine color determinationOrd ered By: Domingo Darby on 05-17-2025 Color (U) Yellow Yellow [facility] Urine cultureOrdered By: Rey Darby on 05-17-2025 Bacteria identified Cx Nom (U) Escherichia coli Abnormal [facility] Urine glucose detectionOrder ed By: Domingo Darby on 05-17-2025 Glucose Ql (U) Normal mg/dl Normal [facility] Urine leukocyte esterase det ection by dipstickOrdered By: Domingo Darby on 05-17-2025 Leukocyte esterase Test strip Ql (U) 100 /ul High Negative [facility] Urine pHOrdered By: Domingo nicholas on 05-17-2025 pH (U) 6.0 [pH] 5.0 - 8.0 [facility] Urine sediment bacteria coun t by microscopy (number/high power field)Ordered By: Domingo Darby on 05-17-2025 Bacteria LM.HPF (Urine sed) [#/Area] 0 /[HPF] None Seen [facility] Urine specific gravity measu rementOrdered By: Domingo Darby on 05-17-2025 Specific gravity (U) [Rel density] 1.020 1.002-1.030 [facility] Urine urobilinogen measureme ntOrdered By: Domingo Darby on 05-17-2025 Urobilinogen Ql (U) Normal mg/dl Normal [facility] White blood cell (WBC) count Ordered By: Domingo Darby on 05-17-2025 WBC (Bld) [#/Vol] 8.8 10*3/uL 4.4-11.[address] [facility] White blood cell countOrdere d By: Domingo Darby on 05-17-2025 White blood cell count 50-100 SEEN /hpf 0-5 [facility] CNPNon 05-07-2025 CNPN Telephone (INTMWS) MICHAELA BRANDT ([id number]) 1940 F Date Time Provider Department 05/07/25 DILLAN SANTIAGO INTMWS During your visit today, we recorded the following information about you: Michaelle Tai, RN 05/07/2025 11:16 AM Signed [employer] [facility] reports pt has fine crackles in the bases of her lungs again. Reports patient denies Shortness of Breath, and the swelling has decreased. No fever. Otherwise, besides pt's anxiety she feels great. Asking if pcp wants to order a CXR? If pcp wants to order a CXR please fax order to Jose M Zheng at fax # [phone] Please advise and phone Ivis with reply: [phone] Dillan Santiago MD 05/11/2025 5:08 PM Signed Do not want chest xr just yet Is she taking her lasix as ordered, 2 times a week? Regards, Michaelle Silver MD, RN 05/12/2025 1:25 PM Signed Phoned Ivis [...] LPN - Fully Assessed Reason for Visit: Advantage requesting order [Other] Prescriptions as of 05/12/2025 [...] unstageable (*04/17/2025 DELMY (dementia of Alzheimer type) ([facility]) [G30.9, *04/17/2025 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] 04/17/2025 Closed fracture of left hip ([facility]) [S72.002A] 04/17/2025 Balance disorder [R26.89] 04/17/2025 Weakness of both lower extremities [R29.898] 04/17/2025 Encounter Status:Closed by Michaelle TIA on 05/12/25 [facility] CNOVon 05-06-2025 CNOV Office Visit (GERIWR ) MICHAELA BRANDT ([id number]) 1940 F Date Time Provider Department 05/06/25 [...] is currently receiving home care services, including custodial, physical therapy, and occupational therapy. She has aides assisting her from [phone] and [phone] daily. Due to financial constraints, the family [...] mg tablet Catheter (SELF-CATHETER, FEMALE) 14 Fr [facility] Maintenance DTaP,Tdap,Td Vaccine(1 - Tdap) Bone Density Screening Shingrix Vaccine(2 of 3) RSV Vaccine(1 - 1-dose 75+ series) Pneumococcal Vaccine: 50+(2 of 2 - PCV) Covid-19 Vaccine(2023- season) Advance Directive Discussion Medicare Advantage Annual [...] (R33.9) Self-catheterize (more content not included)... Normal [facility] ([id number]) 1940 F Date Time Provider Department 05/06/25 DILLAN SANTIAGO INTMWS During your visit today, we recorded the following information about you: Kecia Red RN 05/06/2025 5:03 PM Signed Gabi PT with [facility] calls to let provider know that patient [...] started on 04/20/2025. Please review and advise. ZACHARIAH Vazquez Chitra, MD 05/06/2025 7:09 PM Signed I started [...] unstageable (*04/17/2025 DELMY (dementia of Alzheimer type) ([facility]) [G30.9, *04/17/2025 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] 04/17/2025 Closed fracture of left hip ([facility]) [S72.002A] 04/17/2025 Balance disorder [R26.89] 04/17/2025 Weakness of both lower extremities [R29.898] 04/17/2025 Prescriptions ordered this encounter Disp Refills Start End BUSPIRONE 5 MG TABLET 60 t* 3 05/06/2025 Route: PO Sig: Take 1 tablet by mouth two times a day. Encounter Status:Closed by MIKE GUO on 05/07/25 Normal [facility] Comprehensive metabolic 2000 panelon 05-06-2025 Albumin [Mass/Vol] 3.8 g/dL Low 3.9-4.9 [facility] Comment on above: Order Comment: Speci men Type: BLOOD SPECIMENOrdering Facility: [facility] Address: [address] [place] [address] [place], [place] [address] Performed By: #### 2 4323-8, 02880-8 ####[facility] LABCLIA [id number] [facility] [address] [place] [address] [place] ALP [Catalytic activity/Vol] 100 U/L Normal 34-123 [facility] Comment on above: Order Comment: Speci men Type: BLOOD SPECIMENOrdering Facility: [facility] Address: [address] [place] [address] Performed By: #### 2 4323-8, 09893-2 ####[facility] LABCLIA [id number] [facility] [address] [place] [address] [place] ALT [Catalytic activity/Vol] 9 U/L Normal 7-38 [facility] Comment on above: Order Comment: Speci men Type: BLOOD SPECIMENOrdering Facility: [facility] Address: [address] [place] [address] Performed By: #### 2 4323-8, 49051-5 ####[facility] LABCLIA [id number] [facility] [address] [place] [address] [place] Anion gap [Moles/Vol] 11 mmol/L Normal 8-15 [facility] Comment on above: Order Comment: Speci men Type: BLOOD SPECIMENOrdering Facility: [facility] Address: [address] [place] [address] Performed By: #### 2 4323-8, 08329-2 ####[facility] LABCLIA [id number] [facility] [address] [place] [address] [place] AST [Catalytic activity/Vol] 17 U/L Normal 13-35 [facility] Comment on above: Order Comment: Speci men Type: BLOOD SPECIMENOrdering Facility: [facility] Address: [address] [place], [place] [id number] Performed By: #### 2 4323-8, 09075-8 ####[facility] LABCLIA [id number] [address] [place] [address] [place] Bilirubin [Mass/Vol] 0.7 mg/dL Normal 0.2-1.[address] [facility] Comment on above: Order Comment: Speci men Type: BLOOD SPECIMENOrdering Facility: [facility] Address: [address] [place] [address] Performed By: #### 2 4323-8, 15563-8 ####[facility] LABCLIA [id number] [place] [address] [place] Calcium [Mass/Vol] 9.2 mg/dL Normal 8.5-10.2 [facility] Comment on above: Order Comment: Speci men Type: BLOOD SPECIMENOrdering Facility: [facility] Address: [address] [place], [place] [address] Performed By: #### 2 4323-8, 46847-9 ####[facility] LABCLIA [id number] [place] [address] [place] Chloride [Moles/Vol] 104 mmol/L Normal 98-[address] [facility] Comment on above: Order Comment: Speci men Type: BLOOD SPECIMENOrdering Facility: [facility] Address: [address] [place] [address] Performed By: #### 2 4323-8, 25449-9 ####[facility] LABCLIA [id number] [place] [id number] [place] CO2 [Moles/Vol] 24 mmol/L Normal 22-30 [facility] Comment on above: Order Comment: Speci men Type: BLOOD SPECIMENOrdering Facility: [facility] Address: [address] [place], [place] [address] Performed By: #### 2 4323-8, 37716-5 ####[facility] LABCLIA [id number] [address] [address] [place] Creatinine [Mass/Vol] 0.70 mg/dL Normal 0.58-0.96 [facility] Comment on above: Order Comment: Speci men Type: BLOOD SPECIMENOrdering Facility: [facility] Address: [address] [place] [id number] Performed By: #### 2 4323-8, 74715-4 ####[facility] LABIA [id number] [place] [id number] [place] Creatinine and Glomerular filtration rate.predicted panel (S/P/Bld) 85 mL/min/1.73m??? Normal >=60 [facility] Comment on above: Order Comment: Marcel hopper Type: BLOOD SPECIMENOrdering Facility: [facility] Address: [address] [place] [address] Result Comment: Linda mated Glomerular Filtration Rate [...] actual GFR. Performed By: #### 2 4323-8, 54013-0 ####[facility] LABIA [id number] [place] [id number] [place] Glucose [Mass/Vol] 93 mg/dL Normal 74-99 [facility] Comment on above: Order Comment: Marcel ward Type: BLOOD SPECIMENOrdering Facility: [facility] Address: [address] [place] [address] Result Comment: The [place] Diabetes Association (ADA) provides guidance for cutoff [...] Standards of Medical Care in Diabetes 2016, [place] Diabetes Association. Diabetes Care. 2016.39(Suppl 1). Performed By: #### 2 4323-8, 05746-1 ####[facility] LABCLIA [id number] [address] [address] [place] Potassium [Moles/Vol] 4.0 mmol/L Normal 3.7-5.1 [facility] Comment on above: Order Comment: Speci men Type: BLOOD SPECIMENOrdering Facility: [facility] Address: [address] [place] [address] Performed By: #### 2 4323-8, 40002-2 ####[facility] LABCLIA [id number] [address] [address] [place] Protein [Mass/Vol] 6.6 g/dL Normal 6.3-8.0 [facility] Comment on above: Order Comment: Speci men Type: BLOOD SPECIMENOrdering Facility: [facility] Address: [address] [place] [address] Performed By: #### 2 4323-8, 33560-3 ####[facility] LABCLIA [id number] [place] [id number] [place] Sodium [Moles/Vol] 139 mmol/L Normal 136-144 [facility] Comment on above: Order Comment: Speci men Type: BLOOD SPECIMENOrdering Facility: [facility] Address: [address] [place], [place] [address] Performed By: #### 2 4323-8, 79104-7 ####[facility] LABCLIA [id number] [address] [address] [place] Urea nitrogen [Mass/Vol] 14 mg/dL Normal 7-21 [facility] Comment on above: Order Comment: Speci men Type: BLOOD SPECIMENOrdering Facility: [facility] Address: [address] [place], [place] [address] Performed By: #### 2 4323-8, 00015-5 ####[facility] LABCLIA [id number] [address] [place] HbA1c (Bld)on 05-06-2025 Average glucose Estimated from glycated hemoglobin (Bld) [Mass/Vol] 74 mg/dL Normal [facility] Comment on above: Order Comment: Marcel hopper Type: BLOOD SPECIMENOrdering Facility: [facility] Address: [address] [place] [address] Result Comment: eAG: (Estimated average glucose) is a calculated value from HgbA1c and is sales representative wire rope of the average blood glucose level in the last 2-3 month period. Performed By: #### 5 5454-3 ####[facility] [id number] [address] [place] HbA1c (Bld) [Mass fraction] 4.2 % Low 4.3-5.6 [facility] Comment on above: Order Comment: Marcel hopper Type: BLOOD SPECIMENOrdering Facility: [facility] Address: [address] [place] [address] Result Comment: Amer [place] Diabetes Association guidelines indicate that patients with HgbA1c in the range 5.7-6.4% are at increased risk for development of diabetes, and intervention by lifestyle modification may be beneficial. HgbA1c greater or equal to 6.5% is considered diagnostic of diabetes. Performed By: #### 5 5454-3 ####[facility] [id number] [address] [place] NT-proBNP [facility] 05-06 Natriuretic peptide.B prohormone N-Terminal [Mass/Vol] 113 pg/mL Normal <450 [facility] Comment on above: Order Comment: Marcel hopper Type: BLOOD SPECIMENOrdering Facility: [facility] Address: [address] [place] [address] Performed By: #### 2 4323-8, 19967-0 ####[facility] [id number] [address] [place] CNPNon 05-04-2025 CNPN Telephone (FAMPWS) MICHAELA BRANDT ([id number]) 1940 F Date Time Provider Department 05/04/25 [facility] During your visit today, we recorded the following information about you: Nisha Clayton LPN 05/04/2025 8:50 AM Signed Brittni with [facility] calls in regards to TE from 04/24: Solange Craig RN 04/24/25 11:13 AM Note Brissa from [facility] is calling due to she saw patient [...] 4:11 PM Signed Detailed message on secure [employer]. Pamela Power MA May 04, 2025 4:11 [...] unstageable (*04/17/2025 DELMY (dementia of Alzheimer type) ([facility]) [G30.9, *04/17/2025 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] 04/17/2025 Closed fracture of left hip ([facility]) [S72.002A] 04/17/2025 Balance disorder [R26.89] 04/17/2025 Weakness of both lower extremities [R29.898] 04/17/2025 Encounter Status:Closed by PAMELA POWER on 05/04/25 [facility]20[facility] MICHAEL[facility]AND[facility] ([id number]) 1940 F Date Time Provider Department 04/27/25 TOM BALTAZAR UROLWS During your visit today, we recorded the [...] of orders. Please fax to Savanah at [facility] [phone]. JAIRON notes faxed through [facility]. EVON Miller Courtney, ZACHARIAH 04/27/2025 4:19 PM Signed JAIRON 12/23/24 Nusrat Palmer LPN 05/04/2025 9:05 AM Signed Tom Baltazar [...] Urology to take care of this Regards, Nusrat Cui MD, LPN 05/06/2025 10:03 AM Signed Tom Baltazar PA-C You; [facility] Urology Pool; Desi Bergman RN1 hour ago (8:44 AM) Please write orders and fax to [place] today id needed [place] [facility] VADIM Stanford MT, PA-C Orders pended. Please review and sign. RAMIREZ Valdes Kimberly, LPN 05/06/2025 10:03 AM Signed Addended by: NUSRAT PALMER on: 05/06/2025 10:03 AM Modules accepted: Orders Tom Baltazar PA-C 05/06/2025 10:48 AM Signed Addended by: TOM BALTAZAR on: 05/06/2025 10:48 AM Modules accepted: Orders Dillan Santiago MD 05/06/2025 12:05 PM Signed Here is the trail of the catheter discussion. Regards, Dillan PalmerNusrat CONTRACT WRITER 05/06/2025 3:41 PM Signed Orders, urology office notes faxed to [facility]. RAMIREZ ValdesTemitopeNusratRAMIREZ 05/06/2025 3:50 PM Signed Called [facility], phone number for Savanah. Informed orders/office notes for urology in 12/23/2024 faxed. Awaiting lizarraga cathter size from provider. NusratRAMIREZ AlanizNusratRAMIREZ 05/07/2025 12:50 PM Signed Tom Baltazar PA-C You18 hours ago (5:52 PM) I am not the provider who has pt under home health care, that provider should be ordering the lizarraga exchanges and supplies needed. VADIM Stanford, NASIR TAVERA Called Savanah with [facility] on secured line- no answer. Left message from [employer]. Nusrat Palmer LPN Allergies As of Date: 04/27/2025 (No Known Allergies) Date Reviewed: 04/17/2025 Reviewed by: Mike Guo MA - Fully Assessed Reason for Visit: Orders [681] Cmt: Self catheter Primary Visit Diagnosis:Urine retention [R33.9] Order(s):CATHETER INSERT-LIZARRAGA [15974MOD] Order #: [id number] STANDING BEDSIDE DRAINAGE BAG [[id number]] Order #: [id number] STANDING sodium chloride 0.9 % IRRIGATIONIrrigate 60 mL as instructed once daily as needed.Disp: 1999 mLRfl: 3 BEDSIDE DRAINAGE BAG [[id number]] Order #: [id number] Prescriptions as of 05/07/2025 - sodium chloride [...] unstageable (*04/17/2025 DELMY (dementia of Alzheimer type) ([facility]) [G30.9, *04/17/2025 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] 04/17/2025 Closed fracture of left hip ([facility]) [S72.002A] 04/17/2025 Balance disorder [R26.89] 04/17/2025 Weakness of both lower extremities [R29.898] 04/17/2025 Prescriptions ordered this encounter Disp Refills Start End SODIUM CH (more content not included)... Normal [facility] 04-24-2025 [facility] (COUMWS[facility] MICHAELA BRANDT ([id number]) 1940 F Date Time Provider Department 04/24/25 DILLAN SANTIAGO During your visit today, we recorded the following information about you: Solange Craig, RN 04/24/2025 11:13 AM Signed [facility] from [facility] is calling due to she saw patient [...] if she should take her mother to [facility] ER or a [facility] ER. She states since she is affiliated with [facility] would it be in her best interest to just go to the [facility]. I told her that is up to her, but the closest one would be [place], [facility], or [place]. She said if they went to [facility] they could always get her transfer to [...] unstageable (*04/17/2025 DELMY (dementia of Alzheimer type) ([facility]) [G30.9, *04/17/2025 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] 04/17/2025 Closed fracture of left hip ([facility]) [S72.002A] 04/17/2025 Balance disorder [R26.89] 04/17/2025 Weakness of both lower extremities [R29.898] 04/17/2025 Encounter Status:Closed by SOLANGE CRAIG on 04/28/25 [facility] 04-21-2025 [facility] Telephone (FAMPWS) MICHAELA RBANDT ([id number]) 1940 F Date Time Provider Department 04/21/25 DILLAN SANTIAGO FAM[facility] During your visit today, we recorded the following information about you: Nisha Clayton LPN 04/21/2025 1:08 PM Signed Larisa with [facility] calls to report she saw pt today for evaluation. Larisa reports OT will see pt once x 1 week, twice x 2 weeks, then once x 6 weeks. Larias also reports that pt has 2+ pitting [...] Lombardo LPN April 22, 2025 9:42 AM Allergies As [...] unstageable (*04/17/2025 DELMY (dementia of Alzheimer type) ([facility]) [G30.9, *04/17/2025 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] 04/17/2025 Closed fracture of left hip ([facility]) [S72.002A] 04/17/2025 Balance disorder [R26.89] 04/17/2025 Weakness of both lower extremities [R29.898] 04/17/2025 Encounter Status:Closed by MCKENZIE LOMBARDO on 04/22/25 Normal [facility] CNPNon 04-20-2025 CNPN Telephone (INTMWS) MICHAELA BRANDT ([id number]) 1940 F Date Time Provider Department 04/20/25 DILLAN SANTIAGO During your visit today, we recorded the following information about you: Gabi Mcelroy, RN 04/20/2025 3:09 PM Signed My CAO with [facility] called in POC. She states will be seeing Pt three times a week for 2 weeks, then twice a week for 3 weeks, then once a week for 3 weeks. She states she is going to schedule a visit tomorrow if the provider will give them order to reinsert a lizarraga catheter. She reports that while the Pt was in the care home she had a lizarraga catheter in, and [...] Please call and advise. ZACHARIAH Antonio Amanda, RN 04/20/2025 3:15 PM Signed Called and left a message for My with [facility] that if she has an updated medication list from when the Pt was in the care home if she could fax that to Dr Santiago at [phone]. ZACHARIAH Antonio Beth, LPN 04/20/2025 3:36 PM Signed My calling back she will fax list from the SNF and will have to update med list with her admission notes to [facility] and fax that when she is able. Josy Saucedo RN 04/20/2025 4:08 PM Signed Call received from nurse My at [facility], regarding orders for Pt (see below notation). [facility] nurse observed Pt self-cath, and she was not cleansing herself well. Pt's daughter is voicing concern about Pt's inability to do this at home. [facility] is requesting order for chronic indwelling lizarraga cathether, 16F. Last OV with urology - Tom Baltazar PA-C: 12/23/2024 [facility] phone: [facility] office phone: Fax number for orders: Josy Saucedo RN April 20, 2025 4:07 PM Dillan Santiago MD 04/20/2025 5:03 PM Signed Agree Does she need orders for the 16 swazi indwelling lizarraga? Thanks Regards, Gabi Cesar MD, RN 04/20/2025 5:14 PM Signed My CAO with [facility] called and is notified of providers message. She voices understanding and reports that yes she does need the orders for the 16 swazi indwelling lizarraga. She states she can take a verbal order for that and we can leave a VM as her line is secure. She is also going to have her office fax over an updated medication list from when she was at the care home when she is done with her note. ZACHARIAH Antonio Chitra, MD 04/20/2025 5:39 PM Signed Verbal [...] hemiarthroplasty [Z9 (more content not included)... Normal [facility] CNOVon 04-17-2025 CNOV Office Visit (INTMWS ) ALIZAMICHAELA ([id number]) 1940 F Date Time Provider Department 04/17/25 [...] is a positive sign for healing. - [facility] will be arranged to clean and care [...] you have experienced in the past. - [facility] will assist with catheter care, including monthly [...] These were helpful during your stay at [facility]. - Mental Health: - You are [...] are awaiting an updated medication list from [facility] to confirm all current prescriptions and dosages. - Living Arrangements: - Your daughter is exploring assisted living options for you, including a facility in [facility]. This will require private pay for two [...] - A referral has been sent to [facility] for custodial, PT, and OT. They will also assess [...] support your care needs. Next Steps: - [facility]PC, PT, and OT will be arranged through [...] transitional care (more content not included)... Normal [facility] 04-17-2025 CNPN Telephone (INTMWS) MICHAELA BRANDT ([id number]) 1940 F Date Time Provider Department 04/17/25 DILLAN SANTIAGO INTMWS During your visit today, we recorded the following information about you: Mike Guo MA 04/17/2025 11:44 AM Signed TC to nurse at [facility] to obtain current med list. Unable to reach. Left detailed message for nurse to [facility]. PCP office needs updated med list. EVON Rouse Amanda, RN 04/20/2025 6:40 PM Signed See TE from 04/20/25 My CAO with [facility] was going to have updated medication list faxed over to provider office. Gabi Mcelroy RN Allergies As of Date: 04/17/2025 (No Known Allergies) Date Reviewed: 04/17/2025 Reviewed by: Mike Guo MA - Fully Assessed Reason for Visit: Request information from care home [Other] Prescriptions as of 04/20/2025 - citalopram [...] unstageable (*04/17/2025 DELMY (dementia of Alzheimer type) ([facility]) [G30.9, *04/17/2025 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] 04/17/2025 Closed fracture of left hip ([facility]) [S72.002A] 04/17/2025 Balance disorder [R26.89] 04/17/2025 Weakness of both lower extremities [R29.898] 04/17/2025 Encounter Status:Closed by GABI [facility]Y [facility] ([id number]) 1940 F Date Time Provider Department 04/17/25 DILLAN SANTIAGO INTMWS During your visit today, we recorded the following information about you: Gabi Mcelroy RN 04/17/2025 10:06 AM Signed Wes with [facility] called in and reports they received a referral for SN/PT/OT. She is asking if provider will fallow. Please call back. ZACHARIAH Antonio Chitra, MD 04/17/2025 10:43 AM Signed Will follow Dillan Patel MD, Amanda, RN 04/17/2025 10:54 AM Signed Wes Lora called and is notified of providers message. [...] Encounter Status:Closed by GABI MCELROY on 04/17/25 [facility] MICHA[facility] BRAND[facility] ([id number]) 1940 F Date Time Provider Department 04/17/25 KENTRELL MONTGOMERY During your visit today, we recorded the following information about you: Bethaniechino Kentrell, HEAD OF PHYSICS 04/17/2025 1:00 PM Signed This Sw received SW consult and will work on reaching out to patient daughter to discuss social service needs. This Sw also notes that there is a message from today from [facility] noting orders for SN,PT,OT. It looks like Dr. Santiago agreed to [employer] seeing patient. BethanieKentrell magana, HEAD OF PHYSICS 04/17/2025 1:49 PM Signed Sw tried call to patient daughter and vmail is full, unable to leave message. Sw will try call another time. GrayKentrell flowers, HEAD OF PHYSICS 04/17/2025 3:19 PM Signed Sw spoke with patient daughter in regards to Home Health questions and also current housing [place] options. Maribeth and Thomas discussed that [facility] looks to be an option for home healthcare. Sw left message for [facility] referral line to call this Sw back to confirm if they will be serving patient home healthcare needs. Maribeth notes that [facility] will be providing home care clinician next week when patient stays at her apt. Maribeth notes that patient will then be coming to stay with her,until opening at [facility]. Maribeth notes that she is working on getting bedroom ready at there home for patient to come and stay with he. There is a wait list at [facility]. Thomas will let patient daughter know what she finds out from [facility]. Maribeth also mentioned a letter for her mom's current [place] apt, to see about being released from her housing there. Thomas noted that she would send message to Dr. Santiago to see what she says about letter. Dillan Snatiago MD 04/17/2025 5:33 PM Signed We discussed [...] unstageable (*04/17/2025 DELMY (dementia of Alzheimer type) ([facility]) [G30.9, *04/17/2025 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] 04/17/2025 Closed fracture of left hip ([facility]) [S72.002A] 04/17/2025 Balance disorder [R26.89] 04/17/2025 Weakness of both lower extremities [R29.898] 04/17/2025 Encounter Status:Closed by DILLAN SANTIAGO on 04/17/25 Normal [facility] Basic Metabolic Profile (BMP )on 04-09-2025 BUN Normal - [facility] Comment on above: Result Comment: Canc elled via OM: Order cancelled - Patient discharged Performed By: #### L 100.0100, L500.2500 ####[facility] [address] [place], [address] BUN/CRE Normal 10-20 [facility] Comment on above: Result Comment: Canc elled via OM: Order cancelled - Patient discharged Performed By: #### L 100.0100, L500.2500 ####[facility] [address] [place], [address] Calcium Normal 7.6-11.0 [facility] Comment on above: Result Comment: Canc elled via OM: Order cancelled - Patient discharged Performed By: #### L 100.0100, L500.2500 ####[facility] [address] [place], [address] CL Normal 98-108 [facility] Comment on above: Result Comment: Canc elled via OM: Order cancelled - Patient discharged Performed By: #### L 100.0100, L500.2500 ####[facility] [address] [place], [address] CO2 Normal 21.0-32.0 [facility] Comment on above: Result Comment: Canc elled via OM: Order cancelled - Patient discharged Performed By: #### L 100.0100, L500.2500 ####[facility] [address] [place], [address] CREAT,SERUM Normal 0.70-1.20 [facility] Comment on above: Result Comment: Canc elled via OM: Order cancelled - Patient discharged Performed By: #### L 100.0100, L500.2500 ####[facility] [address] [place], [address] eGFR Normal >60 [facility] Comment on above: Result Comment: Canc elled via OM: Order cancelled - Patient discharged Performed By: #### L 100.0100, L500.2500 ####[facility] [address] [place], [address] GAP Normal 5-15 [facility] Comment on above: Result Comment: Canc elled via OM: Order cancelled - Patient discharged Performed By: #### L 100.0100, L500.2500 ####[facility] [address] [place], [address] GLU Normal 70-99 [facility] Comment on above: Result Comment: Canc elled via OM: Order cancelled - Patient discharged Performed By: #### L 100.0100, L500.2500 ####[facility] [address] [place], [address] Potassium Normal 3.3-5.1 [facility] Comment on above: Result Comment: Canc elled via OM: Order cancelled - Patient discharged Performed By: #### L 100.0100, L500.2500 ####[facility] [address] [place], [address] Basic Metabolic Profile (BMP) Normal 133-145 [facility] Comment on above: Result Comment: Canc elled via OM: Order cancelled - Patient discharged Performed By: #### L 100.0100, L500.2500 ####[facility] [address] [place], [address] CBC W/Diff, Automatedon 05-2 Absolute Neut Normal 2.0-7.7 [facility] Comment on above: Result Comment: Canc elled via OM: Order cancelled - Patient discharged Performed By: #### L 100.0100, L500.2500 ####[facility] [address] [place], [address] HCT Normal 37-47 [facility] Comment on above: Result Comment: Canc elled via OM: Order cancelled - Patient discharged Performed By: #### L 100.0100, L500.2500 ####[facility] [address] [place], [address] HGB Normal 12.0-15.0 [facility] Comment on above: Result Comment: Canc elled via OM: Order cancelled - Patient discharged Performed By: #### L 100.0100, L500.2500 ####[facility] [address] [place], [address] MCH Normal 27.0-32.0 [facility] Comment on above: Result Comment: Canc elled via OM: Order cancelled - Patient discharged Performed By: #### L 100.0100, L500.2500 ####[facility] [address] [place], [address] MCHC Normal 32-36 [facility] Comment on above: Result Comment: Canc elled via OM: Order cancelled - Patient discharged Performed By: #### L 100.0100, L500.2500 ####[facility] [address] [place], [address] MCV Normal 81-99 [facility] Comment on above: Result Comment: Canc elled via OM: Order cancelled - Patient discharged Performed By: #### L 100.0100, L500.2500 ####[facility] [address] [place], [address] NEUT% Normal 47-70 [facility] Comment on above: Result Comment: Canc elled via OM: Order cancelled - Patient discharged Performed By: #### L 100.0100, L500.2500 ####[facility] [address] [place], [address] PLT Normal 150-450 [facility] Comment on above: Result Comment: Canc elled via OM: Order cancelled - Patient discharged Performed By: #### L 100.0100, L500.2500 ####[facility] [address] [place], [address] RBC Normal 4.2-5.4 [facility] Comment on above: Result Comment: Canc elled via OM: Order cancelled - Patient discharged Performed By: #### L 100.0100, L500.2500 ####[facility] [address] [place], [address] RDW CV Normal 11.6-14.6 [facility] Comment on above: Result Comment: Canc elled via OM: Order cancelled - Patient discharged Performed By: #### L 100.0100, L500.2500 ####[facility] [address] [place], [address] RDW SD Normal 35.1-43.9 [facility] Comment on above: Result Comment: Canc elled via OM: Order cancelled - Patient discharged Performed By: #### L 100.0100, L500.2500 ####[facility] [address] [place], [address] WBC Normal 4.4-11.0 [facility] Comment on above: Result Comment: Canc elled via OM: Order cancelled - Patient discharged Performed By: #### L 100.0100, L500.2500 ####[facility] [address] [place], [address] Absolute lymphocyte countOrd ered By: Adele Gusman on 04-06-2025 Lymphocytes Auto (Unsp spec) [#/Vol] 1.67 10*3/uL 0.83-4.51 [facility] Absolute neutrophil countOrd ered By: elsa Gusman on 04-06-2025 Neutrophils (Bld) [#/Vol] 6.8 10*3/uL 2.0-7.7 [facility] Anion gap in Serum or Plasma Ordered By: Adele Gusman on 04-06-2025 Anion gap [Moles/Vol] 10 mmol/L 5-15 [facility] Automated lymphocyte count a s percentage of total leukocytesOrdered By: Adele Gusman on 04-06-2025 Lymphocytes/100 WBC Auto (Unsp spec) 17.8 % Low - [facility] BUN/creatinine ratioOrdered By: elsa Gusman on 04-06-2025 Urea nitrogen/Creatinine [Mass ratio] 18.7 mg/mg 10-20 [facility] Basophil percentageOrdered B y: Adele Gusman on 04-06-2025 Basophils/100 WBC (Bld) 0.4 % 0-[address] [facility] Carbon dioxide, total [Moles /volume] in Central venous bloodOrdered By: Adele Gusman on 04-06-2025 CO2 [Moles/Vol] 25.7 mmol/L 21.0-32.0 [facility] Chloride assayOrdered By: Jennifer Gusman on 04-06-2025 Chloride [Moles/Vol] 106 mmol/L 98-108 [facility] Eosinophil percentageOrdered By: elsa Gusman on 04-06-2025 Eosinophils/100 WBC (Bld) 1.2 % 0-5 [facility] Erythrocyte distribution wid th ratioOrdered By: elsa Gusman on 04-06-2025 Erythrocyte distribution width (RBC) [Ratio] 13.7 % 11.6-14.6 [facility] Erythrocyte distribution wid th standard deviationOrdered By: macariomaurepasmaxim Gusman on 04-06-2025 Erythrocyte distribution width (RBC) [Ratio] 46.9 fl High 35.1-43.9 [facility] Glomerular filtration rate ( GFR) estimation/1.73 sq m using serum, plasma, or whole bOrdered By: Adele Gusman on 04-06-2025 GFR/1.73 sq M.predicted among non-blacks MDRD (S/P/Bld) [Vol rate/Area] 74 mL/min/{1.73_m2} >60 [facility] Comment on above: mL/min/1.73m2 CKD-EP I Creatinine Equation (2020) Hematocrit Auto (Bld) [Volum e fraction]Ordered By: Adele Gusman on 04-06-2025 Hematocrit (Bld) [Volume fraction] 33.6 % Low 37-47 [facility] Hemoglobin measurementOrdere d By: Adele Gusman on 04-06-2025 Hemoglobin (Bld) [Mass/Vol] 11.4 g/dL Low 12.0-15.0 [facility] Immature granulocytes/100 WB C Auto (Bld)Ordered By: Adele Gusman on 04-06-2025 Immature granulocytes/100 WBC (Bld) 1.000 % High 0.0-0.9 [facility] Comment on above: IG% - Immature Granu locytes (promyelocytes, myelocytes and metamyelocytes) > 1% indicates that a LEFT SHIFT is Present. MCV (mean corpuscular volume ) determinationOrdered By: Adele Gusman on 04-06-2025 MCV (RBC) [Entitic vol] 91.8 fL 81-[address] [facility] Mean corpuscular hemoglobin (MCH) determinationOrdered By: Adele Gusman on 04-06-2025 MCH (RBC) [Entitic mass] 31.1 pg 27.0-32.0 [facility] Mean corpuscular hemoglobin concentration (MCHC) determinationOrdered By: Adele Gusman on 04-06-2025 MCHC (RBC) [Mass/Vol] 33.9 g/dL 32-36 [facility] Mean platelet volume determi nationOrdered By: Adele Gusman on 04-06-2025 Platelet mean volume (Bld) [Entitic vol] 10.9 fL 6.2-12.0 [facility] Monocyte percentageOrdered B y: Adele Gusman on 04-06-2025 Monocytes/100 WBC (Bld) 7.3 % 0-[address] [facility] Neutrophil percentageOrdered By: elsa Gusman on 04-06-2025 Neutrophils/100 WBC (Bld) 72.3 % High 47-70 [facility] Nucleated red blood cell per centageOrdered By: Adele Gusman on 04-06-2025 Nucleated RBC/100 WBC (Bld) [Ratio] 0 % 0-5 [facility] Platelet countOrdered By: Jennifer Gusman on 04-06-2025 Platelets (Bld) [#/Vol] 160 10*3/uL 150-450 [facility] Potassium measurement (mass/ volume)Ordered By: Adele Gusman on 04-06-2025 Potassium (Unsp spec) [Mass/Vol] 3.6 mmol/L 3.3-5.1 [facility] RBC Auto (Bld) [#/Vol]Ordere d By: Adele Gusman on 04-06-2025 RBC (Bld) [#/Vol] 3.66 10*6/uL Low 4.2-5.4 [facility] Serum creatinine measurement (mass/volume)Ordered By: Adele Gusman on 04-06-2025 Creatinine [Mass/Vol] 0.79 mg/dL 0.70-1.20 [facility] Serum glucose measurement (m ass/volume)Ordered By: Adele Gusman on 04-06-2025 Glucose [Mass/Vol] 90 mg/dL 70-[address] [facility] Serum or plasma calcium thomas urement (mass/volume)Ordered By: Adele Aryayvon on 04-06-2025 Calcium [Mass/Vol] 8.9 mg/dL 7.6-11.[address] [facility] Serum or plasma urea nitroge n measurement (mass/volume)Ordered By: Sharlenemaurepasmaxim Gusman on 04-06-2025 Urea nitrogen [Mass/Vol] 15 mg/dL - [facility] Sodium levelOrdered By: Sharlene Gusman on 04-06-2025 Sodium [Moles/Vol] 142 mmol/L 133-[address] [facility] White blood cell (WBC) count Ordered By: Adele Gusman on 04-06-2025 WBC (Bld) [#/Vol] 9.4 10*3/uL 4.4-11.[address] [facility] Basic Metabolic Profile (BMP )on 04-02-2025 BUN Normal - [facility] Comment on above: Result Comment: Canc elled via OM: Order cancelled - Patient discharged Performed By: #### L 100.0100, L500.2500 ####[facility] [address] [place], [address] BUN/CRE Normal - [facility] Comment on above: Result Comment: Canc elled via OM: Order cancelled - Patient discharged Performed By: #### L 100.0100, L500.2500 ####[facility] [address] [place], [address] Calcium Normal 7.6-11.0 [facility] Comment on above: Result Comment: Canc elled via OM: Order cancelled - Patient discharged Performed By: #### L 100.0100, L500.2500 ####[facility] [address] [place], [address] CL Normal 98-108 [facility] Comment on above: Result Comment: Canc elled via OM: Order cancelled - Patient discharged Performed By: #### L 100.0100, L500.2500 ####[facility] [address] [place], [address] CO2 Normal 21.0-32.0 [facility] Comment on above: Result Comment: Canc elled via OM: Order cancelled - Patient discharged Performed By: #### L 100.0100, L500.2500 ####[facility] [address] [place], [address] CREAT,SERUM Normal 0.70-1.20 [facility] Comment on above: Result Comment: Canc elled via OM: Order cancelled - Patient discharged Performed By: #### L 100.0100, L500.2500 ####[facility] [address] [place], [address] eGFR Normal >60 [facility] Comment on above: Result Comment: Canc elled via OM: Order cancelled - Patient discharged Performed By: #### L 100.0100, L500.2500 ####[facility] [address] [place], [address] GAP Normal 5-15 [facility] Comment on above: Result Comment: Canc elled via OM: Order cancelled - Patient discharged Performed By: #### L 100.0100, L500.2500 ####[facility] [address] [place], [address] GLU Normal 70-99 [facility] Comment on above: Result Comment: Canc elled via OM: Order cancelled - Patient discharged Performed By: #### L 100.0100, L500.2500 ####[facility] [address] [place], [address] Potassium Normal 3.3-5.1 [facility] Comment on above: Result Comment: Canc elled via OM: Order cancelled - Patient discharged Performed By: #### L 100.0100, L500.2500 ####[facility] [address] [place], [address] Basic Metabolic Profile (BMP) Normal 133-145 [facility] Comment on above: Result Comment: Canc elled via OM: Order cancelled - Patient discharged Performed By: #### L 100.0100, L500.2500 ####[facility] [address] [place], [address] CBC W/Diff, Automatedon 05-1 Absolute Neut Normal 2.0-7.7 [facility] Comment on above: Result Comment: Canc elled via OM: Order cancelled - Patient discharged Performed By: #### L 100.0100, L500.2500 ####[facility] [address] [place], [address] HCT Normal 37-47 [facility] Comment on above: Result Comment: Canc elled via OM: Order cancelled - Patient discharged Performed By: #### L 100.0100, L500.2500 ####[facility] [address] [place], [address] HGB Normal 12.0-15.0 [facility] Comment on above: Result Comment: Canc elled via OM: Order cancelled - Patient discharged Performed By: #### L 100.0100, L500.2500 ####[facility] [address] [place], [address] MCH Normal 27.0-32.0 [facility] Comment on above: Result Comment: Canc elled via OM: Order cancelled - Patient discharged Performed By: #### L 100.0100, L500.2500 ####[facility] [address] [place], [address] MCHC Normal 32-36 [facility] Comment on above: Result Comment: Canc elled via OM: Order cancelled - Patient discharged Performed By: #### L 100.0100, L500.2500 ####[facility] [address] [place], [address] MCV Normal 81-99 [facility] Comment on above: Result Comment: Canc elled via OM: Order cancelled - Patient discharged Performed By: #### L 100.0100, L500.2500 ####[facility] [address] [place], [address] NEUT% Normal 47-70 [facility] Comment on above: Result Comment: Canc elled via OM: Order cancelled - Patient discharged Performed By: #### L 100.0100, L500.2500 ####[facility] [address] [place], [address] PLT Normal 150-450 [facility] Comment on above: Result Comment: Canc elled via OM: Order cancelled - Patient discharged Performed By: #### L 100.0100, L500.2500 ####[facility] [address] [place], [address] RBC Normal 4.2-5.4 [facility] Comment on above: Result Comment: Canc elled via OM: Order cancelled - Patient discharged Performed By: #### L 100.0100, L500.2500 ####[facility] [address] [place], [address] RDW CV Normal 11.6-14.6 [facility] Comment on above: Result Comment: Canc elled via OM: Order cancelled - Patient discharged Performed By: #### L 100.0100, L500.2500 ####[facility] [address] [place], [address] RDW SD Normal 35.1-43.9 [facility] Comment on above: Result Comment: Canc elled via OM: Order cancelled - Patient discharged Performed By: #### L 100.0100, L500.2500 ####[facility] [address] [place], [address] WBC Normal 4.4-11.0 [facility] Comment on above: Result Comment: Canc elled via OM: Order cancelled - Patient discharged Performed By: #### L 100.0100, L500.2500 ####[facility] [address] [place], [address] Absolute lymphocyte countOrd ered By: Daya Morgan on 03-30-2025 Lymphocytes Auto (Unsp spec) [#/Vol] 1.33 10*3/uL 0.83-4.51 [facility] Absolute neutrophil countOrd ered By: Daya Morgan on 03-30-2025 Neutrophils (Bld) [#/Vol] 6.3 10*3/uL 2.0-7.7 [facility] Anion gap in Serum or Plasma Ordered By: Daya Morgan on 03-30-2025 Anion gap [Moles/Vol] 9 mmol/L 5-15 [facility] Automated lymphocyte count a s percentage of total leukocytesOrdered By: Daya Morgan on 03-30-2025 Lymphocytes/100 WBC Auto (Unsp spec) 15.4 % Low 19-41 [facility] BUN/creatinine ratioOrdered By: Daya Morgan on 03-30-2025 Urea nitrogen/Creatinine [Mass ratio] 14.8 mg/mg 10-20 [facility] Basophil percentageOrdered B y: Daya Morgan on 03-30-2025 Basophils/100 WBC (Bld) 0.7 % 0-[address] [facility] Carbon dioxide, total [Moles /volume] in Central venous bloodOrdered By: Daya Morgan on 03-30-2025 CO2 [Moles/Vol] 28.0 mmol/L 21.0-32.0 [facility] Chloride assayOrdered By: Will Morgan on 03-30-2025 Chloride [Moles/Vol] 105 mmol/L 98-108 [facility] Eosinophil percentageOrdered By: Daya Morgan on 03-30-2025 Eosinophils/100 WBC (Bld) 1.4 % 0-5 [facility] Erythrocyte distribution wid th ratioOrdered By: Daya Morgan on 03-30-2025 Erythrocyte distribution width (RBC) [Ratio] 14.2 % 11.6-14.6 [facility] Erythrocyte distribution wid th standard deviationOrdered By: Daya Morgan on 03-30-2025 Erythrocyte distribution width (RBC) [Ratio] 48.0 fl High 35.1-43.9 [facility] Glomerular filtration rate ( GFR) estimation/1.73 sq m using serum, plasma, or whole bOrdered By: Daya Morgan on 03-30-2025 GFR/1.73 sq M.predicted among non-blacks MDRD (S/P/Bld) [Vol rate/Area] 70 mL/min/{1.73_m2} >60 [facility] Comment on above: mL/min/1.73m2 CKD-EP I Creatinine Equation (2020) Hematocrit Auto (Bld) [Volum e fraction]Ordered By: Daya Morgan on 03-30-2025 Hematocrit (Bld) [Volume fraction] 34.1 % Low 37-47 [facility] Hemoglobin measurementOrdere d By: Daya Morgan on 03-30-2025 Hemoglobin (Bld) [Mass/Vol] 11.3 g/dL Low 12.0-15.0 [facility] Immature granulocytes/100 WB C Auto (Bld)Ordered By: Daya Morgan on 03-30-2025 Immature granulocytes/100 WBC (Bld) 0.900 % 0.0-0.9 [facility] Comment on above: IG% - Immature Granu locytes (promyelocytes, myelocytes and metamyelocytes) > 1% indicates that a LEFT SHIFT is Present. MCV (mean corpuscular volume ) determinationOrdered By: Daya Morgan on 03-30-2025 MCV (RBC) [Entitic vol] 93.7 fL 81-[address] [facility] Mean corpuscular hemoglobin (MCH) determinationOrdered By: Daya Morgan on 03-30-2025 MCH (RBC) [Entitic mass] 31.0 pg 27.0-32.0 [facility] Mean corpuscular hemoglobin concentration (MCHC) determinationOrdered By: Daya Morgan on 03-30-2025 MCHC (RBC) [Mass/Vol] 33.1 g/dL 32-36 [facility] Mean platelet volume determi nationOrdered By: Daya Morgan on 03-30-2025 Platelet mean volume (Bld) [Entitic vol] 10.8 fL 6.2-12.0 [facility] Monocyte percentageOrdered B y: Daya Morgan on 03-30-2025 Monocytes/100 WBC (Bld) 8.2 % 0-[address] [facility] Neutrophil percentageOrdered By: Daya Morgan on 03-30-2025 Neutrophils/100 WBC (Bld) 73.4 % High 47-70 [facility] Nucleated red blood cell per centageOrdered By: Daya Morgan on 03-30-2025 Nucleated RBC/100 WBC (Bld) [Ratio] 0 % 0-5 [facility] Platelet countOrdered By: Will Morgan on 03-30-2025 Platelets (Bld) [#/Vol] 160 10*3/uL 150-450 [facility] Potassium measurement (mass/ volume)Ordered By: Daya Morgan on 03-30-2025 Potassium (Unsp spec) [Mass/Vol] 3.6 mmol/L 3.3-5.1 [facility] RBC Auto (Bld) [#/Vol]Ordere d By: Daya Morgan on 03-30-2025 RBC (Bld) [#/Vol] 3.64 10*6/uL Low 4.2-5.4 [facility] Serum creatinine measurement (mass/volume)Ordered By: Daya Morgan on 03-30-2025 Creatinine [Mass/Vol] 0.83 mg/dL 0.70-1.20 [facility] Serum glucose measurement (m ass/volume)Ordered By: Daya Morgan on 03-30-2025 Glucose [Mass/Vol] 91 mg/dL 70-[address] [facility] Serum or plasma calcium thomas urement (mass/volume)Ordered By: Daya Morgan on 03-30-2025 Calcium [Mass/Vol] 9.0 mg/dL 7.6-11.[address] [facility] Serum or plasma urea nitroge n measurement (mass/volume)Ordered By: Daya Morgan on 03-30-2025 Urea nitrogen [Mass/Vol] 12 mg/dL 4-19 [facility] Sodium levelOrdered By: Katarina Morgan on 03-30-2025 Sodium [Moles/Vol] 141 mmol/L 133-[address] [facility] White blood cell (WBC) count Ordered By: Daya Morgan on 03-30-2025 WBC (Bld) [#/Vol] 8.6 10*3/uL 4.4-11.[address] [facility] Basic Metabolic Profile (BMP )on 03-26-2025 BUN Normal 4-19 [facility] Comment on above: Result Comment: Canc elled via OM: Order cancelled - Patient discharged Performed By: #### L 100.0100, L500.2500 ####[facility] [address] [facility] [address] BUN/CRE Normal 10-20 [facility] Comment on above: Result Comment: Canc elled via OM: Order cancelled - Patient discharged Performed By: #### L 100.0100, L500.2500 ####[facility] [address] [place], [address] Calcium Normal 7.6-11.0 [facility] Comment on above: Result Comment: Canc elled via OM: Order cancelled - Patient discharged Performed By: #### L 100.0100, L500.2500 ####[facility] [address] [place], [address] CL Normal 98-108 [facility] Comment on above: Result Comment: Canc elled via OM: Order cancelled - Patient discharged Performed By: #### L 100.0100, L500.2500 ####[facility] [address] [place], [address] CO2 Normal 21.0-32.0 [facility] Comment on above: Result Comment: Canc elled via OM: Order cancelled - Patient discharged Performed By: #### L 100.0100, L500.2500 ####[facility] [address] [place], [address] CREAT,SERUM Normal 0.70-1.20 [facility] Comment on above: Result Comment: Canc elled via OM: Order cancelled - Patient discharged Performed By: #### L 100.0100, L500.2500 ####[facility] [address] [place], [address] eGFR Normal >60 [facility] Comment on above: Result Comment: Canc elled via OM: Order cancelled - Patient discharged Performed By: #### L 100.0100, L500.2500 ####[facility] [address] [place], [address] GAP Normal 5-15 [facility] Comment on above: Result Comment: Canc elled via OM: Order cancelled - Patient discharged Performed By: #### L 100.0100, L500.2500 ####[facility] [address] [place], [address] GLU Normal 70-99 [facility] Comment on above: Result Comment: Canc elled via OM: Order cancelled - Patient discharged Performed By: #### L 100.0100, L500.2500 ####[facility] [address] [place], [address] Potassium Normal 3.3-5.1 [facility] Comment on above: Result Comment: Canc elled via OM: Order cancelled - Patient discharged Performed By: #### L 100.0100, L500.2500 ####[facility] [address] [place], [address] Basic Metabolic Profile (BMP) Normal 133-145 [facility] Comment on above: Result Comment: Canc elled via OM: Order cancelled - Patient discharged Performed By: #### L 100.0100, L500.2500 ####[facility] [address] [place], [address] CBC W/Diff, Automatedon 05-0 -2024 Absolute Neut Normal 2.0-7.7 [facility] Comment on above: Result Comment: Canc elled via OM: Order cancelled - Patient discharged Performed By: #### L 100.0100, L500.2500 ####[facility] [address] [place], [address] HCT Normal 37-47 [facility] Comment on above: Result Comment: Canc elled via OM: Order cancelled - Patient discharged Performed By: #### L 100.0100, L500.2500 ####[facility] [address] [place], [address] HGB Normal 12.0-15.0 [facility] Comment on above: Result Comment: Canc elled via OM: Order cancelled - Patient discharged Performed By: #### L 100.0100, L500.2500 ####[facility] [address] [place], [address] MCH Normal 27.0-32.0 [facility] Comment on above: Result Comment: Canc elled via OM: Order cancelled - Patient discharged Performed By: #### L 100.0100, L500.2500 ####[facility] [address] [place], [address] MCHC Normal 32-36 [facility] Comment on above: Result Comment: Canc elled via OM: Order cancelled - Patient discharged Performed By: #### L 100.0100, L500.2500 ####[facility] [address] [place], [address] MCV Normal 81-99 [facility] Comment on above: Result Comment: Canc elled via OM: Order cancelled - Patient discharged Performed By: #### L 100.0100, L500.2500 ####[facility] [address] [place], [address] NEUT% Normal 47-70 [facility] Comment on above: Result Comment: Canc elled via OM: Order cancelled - Patient discharged Performed By: #### L 100.0100, L500.2500 ####[facility] [address] [place], [address] PLT Normal 150-450 [facility] Comment on above: Result Comment: Canc elled via OM: Order cancelled - Patient discharged Performed By: #### L 100.0100, L500.2500 ####[facility] [address] [place], [address] RBC Normal 4.2-5.4 [facility] Comment on above: Result Comment: Canc elled via OM: Order cancelled - Patient discharged Performed By: #### L 100.0100, L500.2500 ####[facility] [address] [place], [address] RDW CV Normal 11.6-14.6 [facility] Comment on above: Result Comment: Canc elled via OM: Order cancelled - Patient discharged Performed By: #### L 100.0100, L500.2500 ####[facility] [address] [place], [address] RDW SD Normal 35.1-43.9 [facility] Comment on above: Result Comment: Canc elled via OM: Order cancelled - Patient discharged Performed By: #### L 100.0100, L500.2500 ####[facility] [address] [place], [address] WBC Normal 4.4-11.0 [facility] Comment on above: Result Comment: Canc elled via OM: Order cancelled - Patient discharged Performed By: #### L 100.0100, L500.2500 ####[facility] [address] [place], [address] Absolute lymphocyte countOrd ered By: Adele Gusman on 03-23-2025 Lymphocytes Auto (Unsp spec) [#/Vol] 1.22 10*3/uL 0.83-4.51 [facility] Absolute neutrophil countOrd ered By: Adele Gusman on 03-23-2025 Neutrophils (Bld) [#/Vol] 6.8 10*3/uL 2.0-7.7 [facility] Anion gap in Serum or Plasma Ordered By: Adele Gusman on 03-23-2025 Anion gap [Moles/Vol] 10 mmol/L 5-15 [facility] Automated lymphocyte count a s percentage of total leukocytesOrdered By: Adele Gusman on 03-23-2025 Lymphocytes/100 WBC Auto (Unsp spec) 13.5 % Low 19-41 [facility] BUN/creatinine ratioOrdered By: Adele Gusman on 03-23-2025 Urea nitrogen/Creatinine [Mass ratio] 21.5 mg/mg High 10-20 [facility] Basophil percentageOrdered B y: Adele Gusman on 03-23-2025 Basophils/100 WBC (Bld) 0.4 % 0-1 [facility] Bilirubin, totalOrdered By: Adele Gusman on 03-23-2025 Bilirubin [Mass/Vol] 1.28 mg/dL 0.00-1.30 [facility] Carbon dioxide, total [Moles /volume] in Central venous bloodOrdered By: Adele Gusman on 03-23-2025 CO2 [Moles/Vol] 24.4 mmol/L 21.0-32.0 [facility] Chloride assayOrdered By: Jennifer Gusman on 03-23-2025 Chloride [Moles/Vol] 104 mmol/L 98-108 [facility] Eosinophil percentageOrdered By: elsa Gusman on 03-23-2025 Eosinophils/100 WBC (Bld) 1.9 % 0-5 [facility] Erythrocyte distribution wid th ratioOrdered By: Adele Gusman on 03-23-2025 Erythrocyte distribution width (RBC) [Ratio] 15.0 % High 11.6-14.6 [facility] Erythrocyte distribution wid th standard deviationOrdered By: Adele Gusman on 03-23-2025 Erythrocyte distribution width (RBC) [Ratio] 50.8 fl High 35.1-43.9 [facility] Glomerular filtration rate ( GFR) estimation/1.73 sq m using serum, plasma, or whole bOrdered By: Adele Gusman on 03-23-2025 GFR/1.73 sq M.predicted among non-blacks MDRD (S/P/Bld) [Vol rate/Area] 75 mL/min/{1.73_m2} >60 [facility] Comment on above: mL/min/1.73m2 CKD-EP I Creatinine Equation (2020) Hematocrit Auto (Bld) [Volum e fraction]Ordered By: [facility] on 03-23-2025 Hematocrit (Bld) [Volume fraction] 34.2 % Low 37-47 [facility] Hemoglobin measurementOrdere d By: macariomaurepasmaxim Gusman on 03-23-2025 Hemoglobin (Bld) [Mass/Vol] 11.6 g/dL Low 12.0-15.0 [facility] Immature granulocytes/100 WB C Auto (Bld)Ordered By: Adele Gusman on 03-23-2025 Immature granulocytes/100 WBC (Bld) 1.100 % High 0.0-0.9 [facility] Comment on above: IG% - Immature Granu locytes (promyelocytes, myelocytes and metamyelocytes) > 1% indicates that a LEFT SHIFT is Present. Laboratory - Chemistry and C hemistry - challengeOrdered By: elsa Gusman on 03-23-2025 AST [Catalytic activity/Vol] 16 U/L <32 [facility] MCV (mean corpuscular volume ) determinationOrdered By: Adele Gusman 03-23-2025 MCV (RBC) [Entitic vol] 91.9 fL 81-[address] [facility] Mean corpuscular hemoglobin (MCH) determinationOrdered By: macariomaurepasmaxim Gusman 03-23-2025 MCH (RBC) [Entitic mass] 31.2 pg 27.0-32.0 [facility] Mean corpuscular hemoglobin concentration (MCHC) determinationOrdered By: Adele Gusman on 03-23-2025 MCHC (RBC) [Mass/Vol] 33.9 g/dL 32-36 [facility] Mean platelet volume determi nationOrdered By: Adele Gusman on 03-23-2025 Platelet mean volume (Bld) [Entitic vol] 10.1 fL 6.2-12.0 [facility] Monocyte percentageOrdered B y: Adele Gusman on 03-23-2025 Monocytes/100 WBC (Bld) 7.8 % 0-[address] [facility] Neutrophil percentageOrdered By: Sharlenemaurepasmaxim Gusman on 03-23-2025 Neutrophils/100 WBC (Bld) 75.3 % High 47-70 [facility] Nucleated red blood cell per centageOrdered By: Sharlenemaurepasmaxim Gusman on 03-23-2025 Nucleated RBC/100 WBC (Bld) [Ratio] 0 % 0-5 [facility] Platelet countOrdered By: Jennifer macarioaleah Gusman on 03-23-2025 Platelets (Bld) [#/Vol] 241 10*3/uL 150-450 [facility] Potassium measurement (mass/ volume)Ordered By: Adele Gusman on 03-23-2025 Potassium (Unsp spec) [Mass/Vol] 3.5 mmol/L 3.3-5.1 [facility] RBC Auto (Bld) [#/Vol]Ordere d By: Adele Gusman on 03-23-2025 RBC (Bld) [#/Vol] 3.72 10*6/uL Low 4.2-5.4 [facility] Serum creatinine measurement (mass/volume)Ordered By: Adele Gusman on 03-23-2025 Creatinine [Mass/Vol] 0.78 mg/dL 0.70-1.20 [facility] Serum globulin measurementOr dered By: Adele Gusman on 03-23-2025 Globulin (S) [Mass/Vol] 2.3 g/dL 2.2-4.2 [facility] Serum glucose measurement (m ass/volume)Ordered By: Adele Gusman on 03-23-2025 Glucose [Mass/Vol] 95 mg/dL 70-[address] [facility] Serum or plasma alanine tillman otransferase (ALT) measurementOrdered By: Adele Gusman on 03-23-2025 ALT [Catalytic activity/Vol] 6 U/L <35 [facility] Serum or plasma albumin thomas urement (mass/volume)Ordered By: Adele Gusman on 03-23-2025 Albumin [Mass/Vol] 3.5 g/dL 3.4-4.[address] [facility] Serum or plasma albumin/glob ulin mass ratioOrdered By: Adele Gusman on 03-23-2025 Albumin/Globulin [Mass ratio] 1.5 {ratio} 0.9-2.4 [facility] Serum or plasma alkaline mariah sphatase measurementOrdered By: Adele Gusman 03-23-2025 ALP [Catalytic activity/Vol] 135 U/L High 35-104 [facility] Serum or plasma calcium thomas urement (mass/volume)Ordered By: Adele Gusman 03-23-2025 Calcium [Mass/Vol] 9.0 mg/dL 7.6-11.[address] [facility] Serum or plasma urea nitroge n measurement (mass/volume)Ordered By: Adele Gusman 03-23-2025 Urea nitrogen [Mass/Vol] 17 mg/dL 4-19 [facility] Sodium levelOrdered By: Sharlene Gusman on 03-23-2025 Sodium [Moles/Vol] 139 mmol/L 133-[address] [facility] Total proteinOrdered By: Amadou Gusman on 03-23-2025 Protein [Mass/Vol] 5.8 g/dL Low 5.9-8.[address] [facility] White blood cell (WBC) count Ordered By: Adele Gusman on 03-23-2025 WBC (Bld) [#/Vol] 9.1 10*3/uL 4.4-11.[address] [facility] Absolute lymphocyte countOrd ered By: Garfield Srinath on 03-19-2025 Lymphocytes Auto (Unsp spec) [#/Vol] 1.65 10*3/uL 0.83-4.51 [facility] Absolute neutrophil countOrd ered By: Garfield Srinath on 03-19-2025 Neutrophils (Bld) [#/Vol] 5.7 10*3/uL 2.0-7.7 [facility] Anion gap in Serum or Plasma Ordered By: Garfield Yo on 03-19-2025 Anion gap [Moles/Vol] 7 mmol/L 04-02 [facility] Automated lymphocyte count a s percentage of total leukocytesOrdered By: Garfield Srinath on 03-19-2025 Lymphocytes/100 WBC Auto (Unsp spec) 19.7 % [facility] BUN/creatinine ratioOrdered By: Garfield Yo on 03-19-2025 Urea nitrogen/Creatinine [Mass ratio] 17.9 mg/mg 09-07 [facility] Basic Metabolic Profile (BMP )on 03-19-2025 BUN/CRE 17.9 RATIO Normal - [facility] Comment on above: Performed By: #### L 100.0100, L500.2500 ####[facility] [address] [place], [address] Calcium [Mass/Vol] 8.8 mg/dL Normal 7.6-11.[address] [facility] Comment on above: Performed By: #### L 100.0100, L500.2500 ####[facility] [address] [place], [address] Chloride [Moles/Vol] 107 mmol/L Normal 98-108 [facility] Comment on above: Performed By: #### L 100.0100, L500.2500 ####[facility] [address] [place], [address] CO2 [Moles/Vol] 26.6 mmol/L Normal 21.0-32.0 [facility] Comment on above: Performed By: #### L 100.0100, L500.2500 ####[facility] [address] [place], [address] Creatinine [Mass/Vol] 1.02 mg/dL Normal 0.70-1.20 [facility] Comment on above: Performed By: #### L 100.0100, L500.2500 ####[facility] [address] [place], [address] ECRCL 32.95 ml/min Low 50-250 [facility] Comment on above: Performed By: #### L 100.0100, L500.2500 ####[facility] [address] [place], [address] GAP 7 Normal 5-15 [facility] Comment on above: Performed By: #### L 100.0100, L500.2500 ####[facility] [address] [place], [address] GFR/1.73 sq M.predicted among non-blacks MDRD (S/P/Bld) [Vol rate/Area] 54 mL/min/{1.73_m2} Low >60 [facility] Comment on above: Result Comment: mL/m in/1.73m2 CKD-EPI Creatinine Equation (2020) Performed By: #### L 100.0100, L500.2500 ####[facility] [address] [place], [address] Glucose [Mass/Vol] 92 mg/dL Normal 70-[address] [facility] Comment on above: Performed By: #### L 100.0100, L500.2500 ####[facility] [address] [place], [address] Potassium [Moles/Vol] 4.1 mmol/L Normal 3.3-5.1 [facility] Comment on above: Result Comment: Hemo lysis present, Results??could be affected. ?? Performed By: #### L 100.0100, L500.2500 ####[facility] [address] [place], [address] Sodium [Moles/Vol] 141 mmol/L Normal 133-[address] [facility] Comment on above: Performed By: #### L 100.0100, L500.2500 ####[facility] [address] [place], [address] Urea nitrogen [Mass/Vol] 18 mg/dL Normal 4-19 [facility] Comment on above: Performed By: #### L 100.0100, L500.2500 ####[facility] [address] [place], [address] Basophil percentageOrdered B y: Garfield Yo on 03-19-2025 Basophils/100 WBC (Bld) 0.6 % 0-[address] [facility] CBC W/Diff, Automatedon Absolute Lymph 1.65 X10 3/uL Normal 0.83-4.51 [facility] Comment on above: Performed By: #### L 100.0100, L500.2500 ####[facility] [address] [place], [address] Absolute Neut 5.7 X10 3/uL Normal 2.0-7.7 [facility] Comment on above: Performed By: #### L 100.0100, L500.2500 ####[facility] [address] [place], [address] Basophils/100 WBC (Bld) 0.6 % Normal 0-[address] [facility] Comment on above: Performed By: #### L 100.0100, L500.2500 ####[facility] [address] [place], [address] Eosinophils/100 WBC (Bld) 2.1 % Normal 0-5 [facility] Comment on above: Performed By: #### L 100.0100, L500.2500 ####[facility] [address] [place], [address] Erythrocyte distribution width (RBC) [Ratio] 15.7 % High 11.6-14.6 [facility] Comment on above: Performed By: #### L 100.0100, L500.2500 ####[facility] [address] [place], [address] Hematocrit (Bld) [Volume fraction] 30.9 % Low 37-47 [facility] Comment on above: Performed By: #### L 100.0100, L500.2500 ####[facility] [address] [place], [address] Hemoglobin (Bld) [Mass/Vol] 10.4 g/dL Low 12.0-15.0 [facility] Comment on above: Performed By: #### L 100.0100, L500.2500 ####[facility] [address] [place], [address] IG% 1.600 High 0.0-0.9 [facility] Comment on above: Result Comment: IG% - Immature Granulocytes (promyelocytes, myelocytes and metamyelocytes) > 1% indicates that a LEFT SHIFT is Present. Performed By: #### L 100.0100, L500.2500 ####[facility] [address] [place], [address] Lymphocytes/100 WBC (Bld) 19.7 % Normal 19-41 [facility] Comment on above: Performed By: #### L 100.0100, L500.2500 ####[facility] [address] [place], [address] MCH (RBC) [Entitic mass] 31.3 pg Normal 27.0-32.0 [facility] Comment on above: Performed By: #### L 100.0100, L500.2500 ####[facility] [address] [place], [address] MCHC (RBC) [Mass/Vol] 33.7 g/dL Normal 32-36 [facility] Comment on above: Performed By: #### L 100.0100, L500.2500 ####[facility] [address] [place], [address] MCV (RBC) [Entitic vol] 93.1 fL Normal 81-[address] [facility] Comment on above: Performed By: #### L 100.0100, L500.2500 ####[facility] [address] [place], [address] Monocytes/100 WBC (Bld) 8.5 % Normal 0-[address] [facility] Comment on above: Performed By: #### L 100.0100, L500.2500 ####[facility] [address] [place], [address] Neutrophils/100 WBC (Bld) 67.5 % Normal 47-70 [facility] Comment on above: Performed By: #### L 100.0100, L500.2500 ####[facility] [address] [place], [address] Nucleated RBC (Bld) [#/Vol] 0 10*3/uL Normal 0-5 [facility] Comment on above: Performed By: #### L 100.0100, L500.2500 ####[facility] [address] [place], [address] Platelet mean volume (Bld) [Entitic vol] 9.1 fL Normal 6.2-12.0 [facility] Comment on above: Performed By: #### L 100.0100, L500.2500 ####[facility] [address] [place], [address] Platelets (Bld) [#/Vol] 262 10*3/uL Normal 150-450 [facility] Comment on above: Performed By: #### L 100.0100, L500.2500 ####[facility] [address] [place], [address] RBC (Bld) [#/Vol] 3.32 10*6/uL Low 4.2-5.4 [facility] Comment on above: Performed By: #### L 100.0100, L500.2500 ####[facility] [address] [place], [address] RDW SD 53.2 fl High 35.1-43.9 [facility] Comment on above: Performed By: #### L 100.0100, L500.2500 ####[facility] [address] [place], [address] WBC (Bld) [#/Vol] 8.4 10*3/uL Normal 4.4-11.[address] [facility] Comment on above: Performed By: #### L 100.0100, L500.2500 ####[facility] [address] [place], [address] [facility]ANDT ([id number]) 1940 F Date Time Provider Department 03/19/25 KENTRELL MONTGOMERY During your visit today, we recorded the following information about you: Kentrell Montgomery, HEAD OF PHYSICS 03/19/2025 3:34 PM Signed Sw spoke with patient daughter Maribeth. Maribeth notes that patient is currently at [facility] right now. Transitioned there today. Maribeth notes that she needs to cancel patient appt with Dr. Santiago tomorrow. Thomas notes that she will send message to Dr. Santiago regarding this need. Maribeth also noted that she is going to send My Chart message as well in regards to cancelling appt. Maribeth notes that the hospital Sw had encouraged patient to go to [facility] for further care after being in [facility]. Daughter is trying to get with admissions at [facility] in regards to them saying that she is going there for 30 days and being placed in LTC and not Rehab. Daughter also notes that she has an appt next week with [employer] [facility] for financial planning. Maribeth also noted that she would like patient to see Dr. Santiago if and when she leaves [place]. While in [place], patient will be followed by their provider. Sw did encourage patient daughter to also reach out to Lala Huntley and [facility] for further support guidance regarding LTC planning. Sw will forward note to Dr. Santiago and her office in regards to appt cancellation need for tomorrow. Mckenzie Lombardo LPN 03/19/2025 4:00 PM Signed Canceled appointment for tomorrow per patients daughter request. Mckenzie Lombardo LPN March 19, 2025 4:00 PM Dillan Santiago MD 03/19/2025 4:55 PM Signed Thanks and noted Regards, Kentrell Herrera MD, HEAD OF PHYSICS 03/20/2025 3:12 PM Signed Maribeth reached out to in regards to question about patient seeing [facility] provider and liking to keep Dr. Santiago. Maribeth notes that she feels like patient plan at this time will be to stay at [facility] for 30 days. Maribeth and this Sw discussed speaking with [facility] admissions and in regards to consent to sign for them to share info with Dr. Santiago. Maribeth notes that she is going to try and speak with admissions today as she wants to see what happened with patient transitioning to rehab services instead of LTC. Maribeth notes that she still has appt next week with [facility] [facility] as well. Maribeth notes that she is also going to check with SW at [facility] in regards to counselor option for patient. This Sw is not aware of counseling service that provides mental health services at [place]. Daughter notes that she will ask about mental health treatment options there at [place]. Daughter is concerned about patient being depressed [...] Encounter Status:Closed by GABI MCELROY on 03/19/25 [facility] Carbon dioxide, total [Moles /volume] in Central venous bloodOrdered By: Garfield Yo on 03-19-2025 CO2 [Moles/Vol] 26.6 mmol/L 21.0-32.0 [facility] Chloride assayOrdered By: Kristopher Yo on 03-19-2025 Chloride [Moles/Vol] 107 mmol/L 98-108 [facility] Eosinophil percentageOrdered By: Garfield Yo on 03-19-2025 Eosinophils/100 WBC (Bld) 2.1 % 0-5 [facility] Erythrocyte distribution wid th ratioOrdered By: Garfield Yo on 03-19-2025 Erythrocyte distribution width (RBC) [Ratio] 15.7 % High 11.6-14.6 [facility] Erythrocyte distribution wid th standard deviationOrdered By: [facility] on 03-19-2025 Erythrocyte distribution width (RBC) [Ratio] 53.2 fl High 35.1-43.9 [facility] Glomerular filtration rate ( GFR) estimation/1.73 sq m using serum, plasma, or whole bOrdered By: [facility] on 03-19-2025 GFR/1.73 sq M.predicted among non-blacks MDRD (S/P/Bld) [Vol rate/Area] 54 mL/min/{1.73_m2} Low >60 [facility] Comment on above: mL/min/1.73m2 CKD-EP I Creatinine Equation (2020) Hematocrit Auto (Bld) [Volum e fraction]Ordered By: [facility] 03-19-2025 Hematocrit (Bld) [Volume fraction] 30.9 % Low 37-47 [facility] Hemoglobin measurementOrdere d By: Garfield Srinath 03-19-2025 Hemoglobin (Bld) [Mass/Vol] 10.4 g/dL Low 12.0-15.0 [facility] Immature granulocytes/100 WB C Auto (Bld)Ordered By: Garfield Yo 03-19-2025 Immature granulocytes/100 WBC (Bld) 1.600 % High 0.0-0.9 [facility] Comment on above: IG% - Immature Granu locytes (promyelocytes, myelocytes and metamyelocytes) > 1% indicates that a LEFT SHIFT is Present. MCV (mean corpuscular volume ) determinationOrdered By: Garfield Yo 03-19-2025 MCV (RBC) [Entitic vol] 93.1 fL 81-[address] [facility] Mean corpuscular hemoglobin (MCH) determinationOrdered By: Garfield Srinath 03-19-2025 MCH (RBC) [Entitic mass] 31.3 pg 27.0-32.0 [facility] Mean corpuscular hemoglobin concentration (MCHC) determinationOrdered By: Garfield Srinath 03-19-2025 MCHC (RBC) [Mass/Vol] 33.7 g/dL 32-36 [facility] Mean platelet volume determi nationOrdered By: Garfield Yo on 03-19-2025 Platelet mean volume (Bld) [Entitic vol] 9.1 fL 6.2-12.0 [facility] Monocyte percentageOrdered B y: Garfield Yo on 03-19-2025 Monocytes/100 WBC (Bld) 8.5 % 0-[address] [facility] Neutrophil percentageOrdered By: Garfield Yo on 03-19-2025 Neutrophils/100 WBC (Bld) 67.5 % 47-70 [facility] Nucleated red blood cell per centageOrdered By: Garfield Yo on 03-19-2025 Nucleated RBC/100 WBC (Bld) [Ratio] 0 % 0-5 [facility] Platelet countOrdered By: Kristopher Yo on 03-19-2025 Platelets (Bld) [#/Vol] 262 10*3/uL 150-450 [facility] Potassium measurement (mass/ volume)Ordered By: Garfield Yo on 03-19-2025 Potassium (Unsp spec) [Mass/Vol] 4.1 mmol/L 3.3-5.1 [facility] Comment on above: Hemolysis present, R esults could be affected. RBC Auto (Bld) [#/Vol]Ordere d By: Garfield Yo on 03-19-2025 RBC (Bld) [#/Vol] 3.32 10*6/uL Low 4.2-5.4 [facility] Serum creatinine measurement (mass/volume)Ordered By: Garfield Yo on 03-19-2025 Creatinine [Mass/Vol] 1.02 mg/dL 0.70-1.20 [facility] Serum glucose measurement (m ass/volume)Ordered By: Garfield Yo on 03-19-2025 Glucose [Mass/Vol] 92 mg/dL 70-[address] [facility] Serum or plasma calcium thomas urement (mass/volume)Ordered By: Garfield Yo on 03-19-2025 Calcium [Mass/Vol] 8.8 mg/dL 7.6-11.[address] [facility] Serum or plasma urea nitroge n measurement (mass/volume)Ordered By: Garfield Yo on 03-19-2025 Urea nitrogen [Mass/Vol] 18 mg/dL 4-19 [facility] Sodium levelOrdered By: Garfield Yo on 03-19-2025 Sodium [Moles/Vol] 141 mmol/L 133-[address] [facility] White blood cell (WBC) count Ordered By: Garfield Yo on 03-19-2025 WBC (Bld) [#/Vol] 8.4 10*3/uL 4.4-11.[address] [facility] Basic Metabolic Profile (BMP )on 03-12-2025 BUN/CRE 19.2 RATIO Normal 10-20 [facility] Comment on above: Performed By: #### L 100.0100, L500.2500 ####[facility] [address], [address] Calcium [Mass/Vol] 8.6 mg/dL Normal 7.6-11.[address] [facility] Comment on above: Performed By: #### L 100.0100, L500.2500 ####[facility] [address] [place], [address] Chloride [Moles/Vol] 105 mmol/L Normal 98-108 [facility] Comment on above: Performed By: #### L 100.0100, L500.2500 ####[facility] [address] [place], [address] CO2 [Moles/Vol] 26.6 mmol/L Normal 21.0-32.0 [facility] Comment on above: Performed By: #### L 100.0100, L500.2500 ####[facility] [address] [place], [address] Creatinine [Mass/Vol] 0.80 mg/dL Normal 0.70-1.20 [facility] Comment on above: Performed By: #### L 100.0100, L500.2500 ####[facility] [address] [place], [address] ECRCL 42.05 ml/min Low 50-250 [facility] Comment on above: Performed By: #### L 100.0100, L500.2500 ####[facility] [address] [place], [address] GAP 9 Normal 5-15 [facility] Comment on above: Performed By: #### L 100.0100, L500.2500 ####[facility] [address] [place], [address] GFR/1.73 sq M.predicted among non-blacks MDRD (S/P/Bld) [Vol rate/Area] 73 mL/min/{1.73_m2} Normal >60 [facility] Comment on above: Result Comment: mL/m in/1.73m2 CKD-EPI Creatinine Equation (2020) Performed By: #### L 100.0100, L500.2500 ####[facility] [address] [place], [address] Glucose [Mass/Vol] 90 mg/dL Normal 70-[address] [facility] Comment on above: Performed By: #### L 100.0100, L500.2500 ####[facility] [address] [place], [address] Potassium [Moles/Vol] 3.9 mmol/L Normal 3.3-5.1 [facility] Comment on above: Result Comment: Hemo lysis present, Results??could be affected. ?? Performed By: #### L 100.0100, L500.2500 ####[facility] [address] [place], [address] Sodium [Moles/Vol] 140 mmol/L Normal 133-[address] [facility] Comment on above: Performed By: #### L 100.0100, L500.2500 ####[facility] [address] [place], [address] Urea nitrogen [Mass/Vol] 15 mg/dL Normal 4-19 [facility] Comment on above: Performed By: #### L 100.0100, L500.2500 ####[facility] [address] [place], [address] CBC W/Diff, Automatedon 02-18 Absolute Lymph 1.55 X10 3/uL Normal 0.83-4.51 [facility] Comment on above: Performed By: #### L 100.0100, L500.2500 ####[facility] [address] [place], [address] Absolute Neut 7.8 X10 3/uL High 2.0-7.7 [facility] Comment on above: Performed By: #### L 100.0100, L500.2500 ####[facility] [address] [place], [address] Basophils/100 WBC (Bld) 0.9 % Normal 0-[address] [facility] Comment on above: Performed By: #### L 100.0100, L500.2500 ####[facility] [address] [place], [address] Eosinophils/100 WBC (Bld) 2.5 % Normal 0-5 [facility] Comment on above: Performed By: #### L 100.0100, L500.2500 ####[facility] [address] [place], [address] Erythrocyte distribution width (RBC) [Ratio] 16.0 % High 11.6-14.6 [facility] Comment on above: Performed By: #### L 100.0100, L500.2500 ####[facility] [address] [place], [address] Hematocrit (Bld) [Volume fraction] 28.8 % Low 37-47 [facility] Comment on above: Performed By: #### L 100.0100, L500.2500 ####[facility] [address] [place], [address] Hemoglobin (Bld) [Mass/Vol] 9.5 g/dL Low 12.0-15.0 [facility] Comment on above: Performed By: #### L 100.0100, L500.2500 ####[facility] [address] [place], [address] IG% 2.000 High 0.0-0.9 [facility] Comment on above: Result Comment: IG% - Immature Granulocytes (promyelocytes, myelocytes and metamyelocytes) > 1% indicates that a LEFT SHIFT is Present. Performed By: #### L 100.0100, L500.2500 ####[facility] [address] [place], [address] Lymphocytes/100 WBC (Bld) 14.7 % Low 19-41 [facility] Comment on above: Performed By: #### L 100.0100, L500.2500 ####[facility] [address] [place], [address] MCH (RBC) [Entitic mass] 30.7 pg Normal 27.0-32.0 [facility] Comment on above: Performed By: #### L 100.0100, L500.2500 ####[facility] [address] [place], [address] MCHC (RBC) [Mass/Vol] 33.0 g/dL Normal 32-36 [facility] Comment on above: Performed By: #### L 100.0100, L500.2500 ####[facility] [address] [place], [address] MCV (RBC) [Entitic vol] 93.2 fL Normal 81-[address] [facility] Comment on above: Performed By: #### L 100.0100, L500.2500 ####[facility] [address] [place], [address] Monocytes/100 WBC (Bld) 5.9 % Normal 0-[address] [facility] Comment on above: Performed By: #### L 100.0100, L500.2500 ####[facility] [address] [place], [address] Neutrophils/100 WBC (Bld) 74.0 % High 47-70 [facility] Comment on above: Performed By: #### L 100.0100, L500.2500 ####[facility] [address] [place], [address] Nucleated RBC (Bld) [#/Vol] 0 10*3/uL Normal 0-5 [facility] Comment on above: Performed By: #### L 100.0100, L500.2500 ####[facility] [address] [place], [address] Platelet mean volume (Bld) [Entitic vol] 9.4 fL Normal 6.2-12.0 [facility] Comment on above: Performed By: #### L 100.0100, L500.2500 ####[facility] [address] [place], [address] Platelets (Bld) [#/Vol] 312 10*3/uL Normal 150-450 [facility] Comment on above: Performed By: #### L 100.0100, L500.2500 ####[facility] [address] [place], [address] RBC (Bld) [#/Vol] 3.09 10*6/uL Low 4.2-5.4 [facility] Comment on above: Performed By: #### L 100.0100, L500.2500 ####[facility] [address] [place], [address] RDW SD 52.6 fl High 35.1-43.9 [facility] Comment on above: Performed By: #### L 100.0100, L500.2500 ####[facility] [address] [place], [address] WBC (Bld) [#/Vol] 10.6 10*3/uL Normal 4.4-11.0 [facility] Comment on above: Performed By: #### L 100.0100, L500.2500 ####[facility] [address] [place], [place], [id number] Chest PA and Lateralon 03-11 Chest PA and Lateral [facility] Imaging Services [address] [place], [place] [address] Chest PA and Lateral MR#: [id number] Acct: [id number] Name: MICHAELA BRANDT Rep #: [id number] : 1940 F 84 From: Greg cooper MD PCP: Dr. Dillan Santiago MD Status: ADM IN Study: Chest PA and Lateral Date of Exam: 03/11/25 Exam# [id number] Ordering Dr: Garfield Yo MD PROCEDURE: CHEST [...] changes. 3. Unchanged mild cardiomegaly. Reading Location: [place] [address] CC: Dr. Dillan Santiago MD; Dr. Garfield Yo MD Compensation Agent: Signed Normal [facility] Basic Metabolic Profile (BMP )on 03-10-2025 BUN Normal 4- [facility] Comment on above: Result Comment: Canc elled via OM: Order cancelled - Patient discharged Performed By: #### L 500.2500, L100.0100 ####[facility] [address] [place], [address] BUN/CRE Normal 10-20 [facility] Comment on above: Result Comment: Canc elled via OM: Order cancelled - Patient discharged Performed By: #### L 500.2500, L100.0100 ####[facility] [address] [place], [address] Calcium Normal 7.6-11.0 [facility] Comment on above: Result Comment: Canc elled via OM: Order cancelled - Patient discharged Performed By: #### L 500.2500, L100.0100 ####[facility] [address] [place], [address] CL Normal 98-108 [facility] Comment on above: Result Comment: Canc elled via OM: Order cancelled - Patient discharged Performed By: #### L 500.2500, L100.0100 ####[facility] [address] [place], [address] CO2 Normal 21.0-32.0 [facility] Comment on above: Result Comment: Canc elled via OM: Order cancelled - Patient discharged Performed By: #### L 500.2500, L100.0100 ####[facility] [address] [place], [address] CREAT,SERUM Normal 0.70-1.20 [facility] Comment on above: Result Comment: Canc elled via OM: Order cancelled - Patient discharged Performed By: #### L 500.2500, L100.0100 ####[facility] [address] [place], [address] eGFR Normal >60 [facility] Comment on above: Result Comment: Canc elled via OM: Order cancelled - Patient discharged Performed By: #### L 500.2500, L100.0100 ####[facility] [address] [place], [address] GAP Normal 5-15 [facility] Comment on above: Result Comment: Canc elled via OM: Order cancelled - Patient discharged Performed By: #### L 500.2500, L100.0100 ####[facility] [address] [place], [address] GLU Normal 70-99 [facility] Comment on above: Result Comment: Canc elled via OM: Order cancelled - Patient discharged Performed By: #### L 500.2500, L100.0100 ####[facility] [address] [place], [address] Potassium Normal 3.3-5.1 [facility] Comment on above: Result Comment: Canc elled via OM: Order cancelled - Patient discharged Performed By: #### L 500.2500, L100.0100 ####[facility] [address] [place], [address] Basic Metabolic Profile (BMP) Normal 133-145 [facility] Comment on above: Result Comment: Canc elled via OM: Order cancelled - Patient discharged Performed By: #### L 500.2500, L100.0100 ####[facility] [address] [place], [address] CBC W/Diff, Automatedon 04-2 Absolute Neut Normal 2.0-7.7 [facility] Comment on above: Result Comment: Canc elled via OM: Order cancelled - Patient discharged Performed By: #### L 500.2500, L100.0100 ####[facility] [address] [place], [address] HCT Normal 37-47 [facility] Comment on above: Result Comment: Canc elled via OM: Order cancelled - Patient discharged Performed By: #### L 500.2500, L100.0100 ####[facility] [address] [place], [address] HGB Normal 12.0-15.0 [facility] Comment on above: Result Comment: Canc elled via OM: Order cancelled - Patient discharged Performed By: #### L 500.2500, L100.0100 ####[facility] [address] [place], [address] MCH Normal 27.0-32.0 [facility] Comment on above: Result Comment: Canc elled via OM: Order cancelled - Patient discharged Performed By: #### L 500.2500, L100.0100 ####[facility] [address] [place], [address] MCHC Normal 32-36 [facility] Comment on above: Result Comment: Canc elled via OM: Order cancelled - Patient discharged Performed By: #### L 500.2500, L100.0100 ####[facility] [address] [place], [address] MCV Normal 81-99 [facility] Comment on above: Result Comment: Canc elled via OM: Order cancelled - Patient discharged Performed By: #### L 500.2500, L100.0100 ####[facility] [address] [place], [address] NEUT% Normal 47-70 [facility] Comment on above: Result Comment: Canc elled via OM: Order cancelled - Patient discharged Performed By: #### L 500.2500, L100.0100 ####[facility] [address] [place], [address] PLT Normal 150-450 [facility] Comment on above: Result Comment: Canc elled via OM: Order cancelled - Patient discharged Performed By: #### L 500.2500, L100.0100 ####[facility] [address] [place], [address] RBC Normal 4.2-5.4 [facility] Comment on above: Result Comment: Canc elled via OM: Order cancelled - Patient discharged Performed By: #### L 500.2500, L100.0100 ####[facility] [address] [place], [address] RDW CV Normal 11.6-14.6 [facility] Comment on above: Result Comment: Canc elled via OM: Order cancelled - Patient discharged Performed By: #### L 500.2500, L100.0100 ####[facility] [address] [place], [address] RDW SD Normal 35.1-43.9 [facility] Comment on above: Result Comment: Canc elled via OM: Order cancelled - Patient discharged Performed By: #### L 500.2500, L100.0100 ####[facility] [address] [place], [address] WBC Normal 4.4-11.0 [facility] Comment on above: Result Comment: Canc elled via OM: Order cancelled - Patient discharged Performed By: #### L 500.2500, L100.0100 ####[facility] [address] [place], [address] Basic Metabolic Profile (BMP )on 03-09-2025 BUN Normal 4-19 [facility] Comment on above: Result Comment: Canc elled via OM: Order cancelled - Patient discharged Performed By: #### L 500.2500, L100.0100 ####[facility] [address] [place], [address] BUN/CRE Normal 10-20 [facility] Comment on above: Result Comment: Canc elled via OM: Order cancelled - Patient discharged Performed By: #### L 500.2500, L100.0100 ####[facility] [address] [place], [address] Calcium Normal 7.6-11.0 [facility] Comment on above: Result Comment: Canc elled via OM: Order cancelled - Patient discharged Performed By: #### L 500.2500, L100.0100 ####[facility] [address] [place], [address] CL Normal 98-108 [facility] Comment on above: Result Comment: Canc elled via OM: Order cancelled - Patient discharged Performed By: #### L 500.2500, L100.0100 ####[facility] [address] [place], [address] CO2 Normal 21.0-32.0 [facility] Comment on above: Result Comment: Canc elled via OM: Order cancelled - Patient discharged Performed By: #### L 500.2500, L100.0100 ####[facility] [address] [place], [address] CREAT,SERUM Normal 0.70-1.20 [facility] Comment on above: Result Comment: Canc elled via OM: Order cancelled - Patient discharged Performed By: #### L 500.2500, L100.0100 ####[facility] [address] [place], [address] eGFR Normal >60 [facility] Comment on above: Result Comment: Canc elled via OM: Order cancelled - Patient discharged Performed By: #### L 500.2500, L100.0100 ####[facility] [address] [place], [address] GAP Normal 5-15 [facility] Comment on above: Result Comment: Canc elled via OM: Order cancelled - Patient discharged Performed By: #### L 500.2500, L100.0100 ####[facility] [address] [place], [address] GLU Normal 70-99 [facility] Comment on above: Result Comment: Canc elled via OM: Order cancelled - Patient discharged Performed By: #### L 500.2500, L100.0100 ####[facility] [address] [place], [address] Potassium Normal 3.3-5.1 [facility] Comment on above: Result Comment: Canc elled via OM: Order cancelled - Patient discharged Performed By: #### L 500.2500, L100.0100 ####[facility] [address] [place], [address] Basic Metabolic Profile (BMP) Normal 133-145 [facility] Comment on above: Result Comment: Canc elled via OM: Order cancelled - Patient discharged Performed By: #### L 500.2500, L100.0100 ####[facility] [address] [place], [address] CBC W/Diff, Automatedon 04-2 Absolute Neut Normal 2.0-7.7 [facility] Comment on above: Result Comment: Canc elled via OM: Order cancelled - Patient discharged Performed By: #### L 500.2500, L100.0100 ####[facility] [address] [place], [address] HCT Normal 37-47 [facility] Comment on above: Result Comment: Canc elled via OM: Order cancelled - Patient discharged Performed By: #### L 500.2500, L100.0100 ####[facility] [address] [place], [address] HGB Normal 12.0-15.0 [facility] Comment on above: Result Comment: Canc elled via OM: Order cancelled - Patient discharged Performed By: #### L 500.2500, L100.0100 ####[facility] [address] [place], [address] MCH Normal 27.0-32.0 [facility] Comment on above: Result Comment: Canc elled via OM: Order cancelled - Patient discharged Performed By: #### L 500.2500, L100.0100 ####[facility] [address] [place], [address] MCHC Normal 32-36 [facility] Comment on above: Result Comment: Canc elled via OM: Order cancelled - Patient discharged Performed By: #### L 500.2500, L100.0100 ####[facility] [address], [address] MCV Normal 81-99 [facility] Comment on above: Result Comment: Canc elled via OM: Order cancelled - Patient discharged Performed By: #### L 500.2500, L100.0100 ####[facility] [address], [address] NEUT% Normal 47-70 [facility] Comment on above: Result Comment: Canc elled via OM: Order cancelled - Patient discharged Performed By: #### L 500.2500, L100.0100 ####[facility] [address] [place], [address] PLT Normal 150-450 [facility] Comment on above: Result Comment: Canc elled via OM: Order cancelled - Patient discharged Performed By: #### L 500.2500, L100.0100 ####[facility] [address] [place], [address] RBC Normal 4.2-5.4 [facility] Comment on above: Result Comment: Canc elled via OM: Order cancelled - Patient discharged Performed By: #### L 500.2500, L100.0100 ####[facility] [address] [place], [address] RDW CV Normal 11.6-14.6 [facility] Comment on above: Result Comment: Canc elled via OM: Order cancelled - Patient discharged Performed By: #### L 500.2500, L100.0100 ####[facility] [address] [place], [address] RDW SD Normal 35.1-43.9 [facility] Comment on above: Result Comment: Canc elled via OM: Order cancelled - Patient discharged Performed By: #### L 500.2500, L100.0100 ####[facility] [address] [place], [address] WBC Normal 4.4-11.0 [facility] Comment on above: Result Comment: Canc elled via OM: Order cancelled - Patient discharged Performed By: #### L 500.2500, L100.0100 ####[facility] [address] [place], [address] Venous Duplex US, Unilateral on 03-09-2025 Venous Duplex US, Unilateral [facility] [address] 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 PTV is compressible. Acute deep vein thrombosis is noted in the Per V. It is dilated and NONCOMPRESSIBLE. VL/Venous Duplex US, Unilateral Interpretation Summary Acute deep vein thrombosis is noted in the left peroneal vein. Ordering Physician: Garfield Yo Chi Referring Physician: Dillan Santiago Performed By: Raul Katz, RVT 03/09/251849 Date Vadim Estrada MD CC: Dr. Dillan Santiago MD; Dr. Garfield Yo MD Date Dictated: 03/09/25920 Date Transcribed: 03/09/251849 Compensation Agent: Signed Normal [facility] Venous duplex ultrasound rep ortOrdered By: Vadim Estrada on 03-09-2025 US Vein [facility] [address] 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 PTV is compressible. Acute deep vein thrombosis is noted in the Per V. It is dilated andNONCOMPRESSIBLE. VL/Venous Duplex US, Unilateral Interpretation Summary Acute deep vein thrombosis is noted in the left peroneal vein. Ordering Physician: Garfield Yo Chi Referring Physician: Dillan Santiago Performed By: Raul Katz RVT 03/09/251849 Date _ Vadim Estrada MD CC: Dr. Dillan Santiago MD; Dr. Garfield Yo MD ~ Date Dictated: 03/09/25920 Date Transcribed: 03/09/251849 Compensation Agent: Signed [facility] Work Phone: Basic Metabolic Profile (BMP )on 03-08-2025 BUN Normal 03-07 [facility] Comment on above: Result Comment: Canc elled via OM: Order cancelled - Patient discharged Performed By: #### L 100.0100, L500.2500 ####[facility] [address] [place], [address] BUN/CRE Normal 09-07 [facility] Comment on above: Result Comment: Canc elled via OM: Order cancelled - Patient discharged Performed By: #### L 100.0100, L500.2500 ####[facility] [address] [place], [address] Calcium Normal 7.6-11.0 [facility] Comment on above: Result Comment: Canc elled via OM: Order cancelled - Patient discharged Performed By: #### L 100.0100, L500.2500 ####[facility] [address] [place], [address] CL Normal 98-108 [facility] Comment on above: Result Comment: Canc elled via OM: Order cancelled - Patient discharged Performed By: #### L 100.0100, L500.2500 ####[facility] [address] [place], [address] CO2 Normal 21.0-32.0 [facility] Comment on above: Result Comment: Canc elled via OM: Order cancelled - Patient discharged Performed By: #### L 100.0100, L500.2500 ####[facility] [address] [place], [address] CREAT,SERUM Normal 0.70-1.20 [facility] Comment on above: Result Comment: Canc elled via OM: Order cancelled - Patient discharged Performed By: #### L 100.0100, L500.2500 ####[facility] [address] [place], [address] eGFR Normal >60 [facility] Comment on above: Result Comment: Canc elled via OM: Order cancelled - Patient discharged Performed By: #### L 100.0100, L500.2500 ####[facility] [address] [place], [address] GAP Normal 5-15 [facility] Comment on above: Result Comment: Canc elled via OM: Order cancelled - Patient discharged Performed By: #### L 100.0100, L500.2500 ####[facility] [address] [place], [address] GLU Normal 70-99 [facility] Comment on above: Result Comment: Canc elled via OM: Order cancelled - Patient discharged Performed By: #### L 100.0100, L500.2500 ####[facility] [address] [place], [address] Potassium Normal 3.3-5.1 [facility] Comment on above: Result Comment: Canc elled via OM: Order cancelled - Patient discharged Performed By: #### L 100.0100, L500.2500 ####[facility] [address] [place], [address] Basic Metabolic Profile (BMP) Normal 133-145 [facility] Comment on above: Result Comment: Canc elled via OM: Order cancelled - Patient discharged Performed By: #### L 100.0100, L500.2500 ####[facility] [address] [place], [address] CBC W/Diff, Automatedon 04-2 0-2024 Absolute Neut Normal 2.0-7.7 [facility] Comment on above: Result Comment: Canc elled via OM: Order cancelled - Patient discharged Performed By: #### L 100.0100, L500.2500 ####[facility] [address] [place], [address] HCT Normal 37-47 [facility] Comment on above: Result Comment: Canc elled via OM: Order cancelled - Patient discharged Performed By: #### L 100.0100, L500.2500 ####[facility] [address] [place], [address] HGB Normal 12.0-15.0 [facility] Comment on above: Result Comment: Canc elled via OM: Order cancelled - Patient discharged Performed By: #### L 100.0100, L500.2500 ####[facility] [address] [place], [address] MCH Normal 27.0-32.0 [facility] Comment on above: Result Comment: Canc elled via OM: Order cancelled - Patient discharged Performed By: #### L 100.0100, L500.2500 ####[facility] [address] [place], [address] MCHC Normal 32-36 [facility] Comment on above: Result Comment: Canc elled via OM: Order cancelled - Patient discharged Performed By: #### L 100.0100, L500.2500 ####[facility] [address], [address] MCV Normal 81-99 [facility] Comment on above: Result Comment: Canc elled via OM: Order cancelled - Patient discharged Performed By: #### L 100.0100, L500.2500 ####[facility] [address] [place], [address] NEUT% Normal 47-70 [facility] Comment on above: Result Comment: Canc elled via OM: Order cancelled - Patient discharged Performed By: #### L 100.0100, L500.2500 ####[facility] [address] [place], [address] PLT Normal 150-450 [facility] Comment on above: Result Comment: Canc elled via OM: Order cancelled - Patient discharged Performed By: #### L 100.0100, L500.2500 ####[facility] [address] [place], [address] RBC Normal 4.2-5.4 [facility] Comment on above: Result Comment: Canc elled via OM: Order cancelled - Patient discharged Performed By: #### L 100.0100, L500.2500 ####[facility] [address] [place], [address] RDW CV Normal 11.6-14.6 [facility] Comment on above: Result Comment: Canc elled via OM: Order cancelled - Patient discharged Performed By: #### L 100.0100, L500.2500 ####[facility] [address] [place], [address] RDW SD Normal 35.1-43.9 [facility] Comment on above: Result Comment: Canc elled via OM: Order cancelled - Patient discharged Performed By: #### L 100.0100, L500.2500 ####[facility] [address] [place], [place], [address] WBC Normal 4.4-11.0 [facility] Comment on above: Result Comment: Canc elled via OM: Order cancelled - Patient discharged Performed By: #### L 100.0100, L500.2500 ####[facility] [address] [place], [address] Basic Metabolic Profile (BMP )on 03-07-2025 BUN Normal -19 [facility] Comment on above: Result Comment: Canc elled via OM: Order cancelled - Patient discharged Performed By: #### L 100.0100, L500.2500 ####[facility] [address] [place], [address] BUN/CRE Normal 10-20 [facility] Comment on above: Result Comment: Canc elled via OM: Order cancelled - Patient discharged Performed By: #### L 100.0100, L500.2500 ####[facility] [address] [place], [address] Calcium Normal 7.6-11.0 [facility] Comment on above: Result Comment: Canc elled via OM: Order cancelled - Patient discharged Performed By: #### L 100.0100, L500.2500 ####[facility] [address] [place], [address] CL Normal 98-108 [facility] Comment on above: Result Comment: Canc elled via OM: Order cancelled - Patient discharged Performed By: #### L 100.0100, L500.2500 ####[facility] [address] [place], [address] CO2 Normal 21.0-32.0 [facility] Comment on above: Result Comment: Canc elled via OM: Order cancelled - Patient discharged Performed By: #### L 100.0100, L500.2500 ####[facility] [address] [place], [address] CREAT,SERUM Normal 0.70-1.20 [facility] Comment on above: Result Comment: Canc elled via OM: Order cancelled - Patient discharged Performed By: #### L 100.0100, L500.2500 ####[facility] [address] [place], [address] eGFR Normal >60 [facility] Comment on above: Result Comment: Canc elled via OM: Order cancelled - Patient discharged Performed By: #### L 100.0100, L500.2500 ####[facility] [address] [place], [address] GAP Normal 5-15 [facility] Comment on above: Result Comment: Canc elled via OM: Order cancelled - Patient discharged Performed By: #### L 100.0100, L500.2500 ####[facility] [address] [place], [address] GLU Normal 70-99 [facility] Comment on above: Result Comment: Canc elled via OM: Order cancelled - Patient discharged Performed By: #### L 100.0100, L500.2500 ####[facility] [address] [place], [address] Potassium Normal 3.3-5.1 [facility] Comment on above: Result Comment: Canc elled via OM: Order cancelled - Patient discharged Performed By: #### L 100.0100, L500.2500 ####[facility] [address] [place], [address] Basic Metabolic Profile (BMP) Normal 133-145 [facility] Comment on above: Result Comment: Canc elled via OM: Order cancelled - Patient discharged Performed By: #### L 100.0100, L500.2500 ####[facility] [address] [place], [address] CBC W/Diff, Automatedon - Absolute Neut Normal 2.0-7.7 [facility] Comment on above: Result Comment: Canc elled via OM: Order cancelled - Patient discharged Performed By: #### L 100.0100, L500.2500 ####[facility] [address] [place], [address] HCT Normal 37-47 [facility] Comment on above: Result Comment: Canc elled via OM: Order cancelled - Patient discharged Performed By: #### L 100.0100, L500.2500 ####[facility] [address] [place], [address] HGB Normal 12.0-15.0 [facility] Comment on above: Result Comment: Canc elled via OM: Order cancelled - Patient discharged Performed By: #### L 100.0100, L500.2500 ####[facility] [address] [place], [address] MCH Normal 27.0-32.0 [facility] Comment on above: Result Comment: Canc elled via OM: Order cancelled - Patient discharged Performed By: #### L 100.0100, L500.2500 ####[facility] [address] [place], [address] MCHC Normal 32-36 [facility] Comment on above: Result Comment: Canc elled via OM: Order cancelled - Patient discharged Performed By: #### L 100.0100, L500.2500 ####[facility] [address] [place], [address] MCV Normal 81-99 [facility] Comment on above: Result Comment: Canc elled via OM: Order cancelled - Patient discharged Performed By: #### L 100.0100, L500.2500 ####[facility] [address] [place], [address] NEUT% Normal 47-70 [facility] Comment on above: Result Comment: Canc elled via OM: Order cancelled - Patient discharged Performed By: #### L 100.0100, L500.2500 ####[facility] [address] [place], [address] PLT Normal 150-450 [facility] Comment on above: Result Comment: Canc elled via OM: Order cancelled - Patient discharged Performed By: #### L 100.0100, L500.2500 ####[facility] [address] [place], [address] RBC Normal 4.2-5.4 [facility] Comment on above: Result Comment: Canc elled via OM: Order cancelled - Patient discharged Performed By: #### L 100.0100, L500.2500 ####[facility] [address] [place], [address] RDW CV Normal 11.6-14.6 [facility] Comment on above: Result Comment: Canc elled via OM: Order cancelled - Patient discharged Performed By: #### L 100.0100, L500.2500 ####[facility] [address] [place], [address] RDW SD Normal 35.1-43.9 [facility] Comment on above: Result Comment: Canc elled via OM: Order cancelled - Patient discharged Performed By: #### L 100.0100, L500.2500 ####[facility] [address] [place], [address] WBC Normal 4.4-11.0 [facility] Comment on above: Result Comment: Canc elled via OM: Order cancelled - Patient discharged Performed By: #### L 100.0100, L500.2500 ####[facility] [address] [place], [address] HH, Hemoglobin AND Hematocri ton 03-07-2025 Hematocrit (Bld) [Volume fraction] 26.2 % Low 37-47 [facility] Comment on above: Performed By: #### L 100.0600 ####[facility] [address] [place], [address] Hemoglobin (Bld) [Mass/Vol] 9.0 g/dL Low 12.0-15.0 [facility] Comment on above: Performed By: #### L 100.0600 ####[facility] [address] [place], [address] Hematocrit Auto (Bld) [Volum e fraction]Ordered By: Garfield Yo on 03-07-2025 Hematocrit (Bld) [Volume fraction] 26.2 % Low 37-47 [facility] Hemoglobin measurementOrdere d By: Garfield Yo on 03-07-2025 Hemoglobin (Bld) [Mass/Vol] 9.0 g/dL Low 12.0-15.0 [facility] Basic Metabolic Profile (BMP )on 03-06-2025 BUN Normal 4-19 [facility] Comment on above: Result Comment: Canc elled via OM: Order cancelled - Patient discharged Performed By: #### L 100.0100, L500.2500 ####[facility] [address] [place], [address] BUN/CRE Normal 10-20 [facility] Comment on above: Result Comment: Canc elled via OM: Order cancelled - Patient discharged Performed By: #### L 100.0100, L500.2500 ####[facility] [address] [place], [address] Calcium Normal 7.6-11.0 [facility] Comment on above: Result Comment: Canc elled via OM: Order cancelled - Patient discharged Performed By: #### L 100.0100, L500.2500 ####[facility] [address] [place], [address] CL Normal 98-108 [facility] Comment on above: Result Comment: Canc elled via OM: Order cancelled - Patient discharged Performed By: #### L 100.0100, L500.2500 ####[facility] [address] [place], [address] CO2 Normal 21.0-32.0 [facility] Comment on above: Result Comment: Canc elled via OM: Order cancelled - Patient discharged Performed By: #### L 100.0100, L500.2500 ####[facility] [address] [place], [address] CREAT,SERUM Normal 0.70-1.20 [facility] Comment on above: Result Comment: Canc elled via OM: Order cancelled - Patient discharged Performed By: #### L 100.0100, L500.2500 ####[facility] [address] [place], [address] eGFR Normal >60 [facility] Comment on above: Result Comment: Canc elled via OM: Order cancelled - Patient discharged Performed By: #### L 100.0100, L500.2500 ####[facility] [address] [place], [address] GAP Normal 5-15 [facility] Comment on above: Result Comment: Canc elled via OM: Order cancelled - Patient discharged Performed By: #### L 100.0100, L500.2500 ####[facility] [address] [place], [address] GLU Normal 70-99 [facility] Comment on above: Result Comment: Canc elled via OM: Order cancelled - Patient discharged Performed By: #### L 100.0100, L500.2500 ####[facility] [address] [place], [address] Potassium Normal 3.3-5.1 [facility] Comment on above: Result Comment: Canc elled via OM: Order cancelled - Patient discharged Performed By: #### L 100.0100, L500.2500 ####[facility] [address] [place], [address] Basic Metabolic Profile (BMP) Normal 133-145 [facility] Comment on above: Result Comment: Canc elled via OM: Order cancelled - Patient discharged Performed By: #### L 100.0100, L500.2500 ####[facility] [address] [place], [address] CBC W/Diff, Automatedon - Absolute Neut Normal 2.0-7.7 [facility] Comment on above: Result Comment: Canc elled via OM: Order cancelled - Patient discharged Performed By: #### L 100.0100, L500.2500 ####[facility] [address] [place], [address] HCT Normal 37-47 [facility] Comment on above: Result Comment: Canc elled via OM: Order cancelled - Patient discharged Performed By: #### L 100.0100, L500.2500 ####[facility] [address] [place], [address] HGB Normal 12.0-15.0 [facility] Comment on above: Result Comment: Canc elled via OM: Order cancelled - Patient discharged Performed By: #### L 100.0100, L500.2500 ####[facility] [address] [place], [address] MCH Normal 27.0-32.0 [facility] Comment on above: Result Comment: Canc elled via OM: Order cancelled - Patient discharged Performed By: #### L 100.0100, L500.2500 ####[facility] [address] [place], [address] MCHC Normal 32-36 [facility] Comment on above: Result Comment: Canc elled via OM: Order cancelled - Patient discharged Performed By: #### L 100.0100, L500.2500 ####[facility] [address] [place], [address] MCV Normal 81-99 [facility] Comment on above: Result Comment: Canc elled via OM: Order cancelled - Patient discharged Performed By: #### L 100.0100, L500.2500 ####[facility] [address] [place], [address] NEUT% Normal 47-70 [facility] Comment on above: Result Comment: Canc elled via OM: Order cancelled - Patient discharged Performed By: #### L 100.0100, L500.2500 ####[facility] [address] [place], [address] PLT Normal 150-450 [facility] Comment on above: Result Comment: Canc elled via OM: Order cancelled - Patient discharged Performed By: #### L 100.0100, L500.2500 ####[facility] [address] [place], [address] RBC Normal 4.2-5.4 [facility] Comment on above: Result Comment: Canc elled via OM: Order cancelled - Patient discharged Performed By: #### L 100.0100, L500.2500 ####[facility] [address] [place], [address] RDW CV Normal 11.6-14.6 [facility] Comment on above: Result Comment: Canc elled via OM: Order cancelled - Patient discharged Performed By: #### L 100.0100, L500.2500 ####[facility] [address] [place], [address] RDW SD Normal 35.1-43.9 [facility] Comment on above: Result Comment: Canc elled via OM: Order cancelled - Patient discharged Performed By: #### L 100.0100, L500.2500 ####[facility] [address] [place], [address] WBC Normal 4.4-11.0 [facility] Comment on above: Result Comment: Canc elled via OM: Order cancelled - Patient discharged Performed By: #### L 100.0100, L500.2500 ####[facility] [address] [place], [address] Knee 1 or 2 Viewson 03-06-20 25 Knee 1 or 2 Views [facility] Services [address] [place] [address] Knee 1 or 2 Views MR#: [id number] Acct: [id number] Name: MICHAELA BRANDT Rep #: [id number] : 1940 F 84 From: Marc Warner MD PCP: Dr. Dillan Santiago MD Status: ADM IN Study: Knee 1 or 2 Views Date of Exam: 03/06/25 Exam# [id number] Ordering Dr: Garfield Yo MD PROCEDURE: KNEE [...] or MRI may be useful. Reading Location: [id number] CC: Dr. Dillan Santiago MD; Dr. Garfield Yo MD Compensation Agent: Signed Normal [facility] Absolute neutrophil countOrd ered By: Garfield Yo on 03-05-2025 Neutrophils (Bld) [#/Vol] 7.3 10*3/uL 2.0-7.7 [facility] Anion gap in Serum or Plasma Ordered By: Garfield Yo on 03-05-2025 Anion gap [Moles/Vol] 10 mmol/L - [facility] BUN/creatinine ratioOrdered By: Garfield Yo on 03-05-2025 Urea nitrogen/Creatinine [Mass ratio] 17.0 mg/mg - [facility] Basic Metabolic Profile (BMP )on 03-05-2025 BUN/CRE 17.0 RATIO Normal - [facility] Comment on above: Performed By: #### L 100.0100, L500.2500 ####[facility] [address] [place], [address] Calcium [Mass/Vol] 8.5 mg/dL Normal 7.6-11.[address] [facility] Comment on above: Performed By: #### L 100.0100, L500.2500 ####[facility] [address] [place], [address] Chloride [Moles/Vol] 102 mmol/L Normal 98-108 [facility] Comment on above: Performed By: #### L 100.0100, L500.2500 ####[facility] [address] [place], [address] CO2 [Moles/Vol] 27.5 mmol/L Normal 21.0-32.0 [facility] Comment on above: Performed By: #### L 100.0100, L500.2500 ####[facility] [address] [place], [address] Creatinine [Mass/Vol] 0.78 mg/dL Normal 0.70-1.20 [facility] Comment on above: Performed By: #### L 100.0100, L500.2500 ####[facility] [address] [place], [address] ECRCL 41.90 ml/min Low 50-250 [facility] Comment on above: Performed By: #### L 100.0100, L500.2500 ####[facility] [address] [place], [address] GAP 10 Normal 5-15 [facility] Comment on above: Performed By: #### L 100.0100, L500.2500 ####[facility] [address] [place], [address] GFR/1.73 sq M.predicted among non-blacks MDRD (S/P/Bld) [Vol rate/Area] 74 mL/min/{1.73_m2} Normal >60 [facility] Comment on above: Result Comment: mL/m in/1.73m2 CKD-EPI Creatinine Equation (2020) Performed By: #### L 100.0100, L500.2500 ####[facility] [address] [place], [address] Glucose [Mass/Vol] 100 mg/dL High 70-[address] [facility] Comment on above: Performed By: #### L 100.0100, L500.2500 ####[facility] [address] [place], [address] Potassium [Moles/Vol] 3.3 mmol/L Normal 3.3-5.1 [facility] Comment on above: Performed By: #### L 100.0100, L500.2500 ####[facility] [address] [place], [address] Sodium [Moles/Vol] 140 mmol/L Normal 133-[address] [facility] Comment on above: Performed By: #### L 100.0100, L500.2500 ####[facility] [address] [place], [address] Urea nitrogen [Mass/Vol] 13 mg/dL Normal 4-19 [facility] Comment on above: Performed By: #### L 100.0100, L500.2500 ####[facility] [address] [place], [address] BUN Normal 4-19 [facility] Comment on above: Result Comment: Canc elled via OM: Order cancelled - Patient discharged Performed By: #### L 500.2500, L100.0100 ####[facility] [address] [place], [address] BUN/CRE Normal 10-20 [facility] Comment on above: Result Comment: Canc elled via OM: Order cancelled - Patient discharged Performed By: #### L 500.2500, L100.0100 ####[facility] [address] [place], [address] Calcium Normal 7.6-11.0 [facility] Comment on above: Result Comment: Canc elled via OM: Order cancelled - Patient discharged Performed By: #### L 500.2500, L100.0100 ####[facility] [address] [place], [address] CL Normal 98-108 [facility] Comment on above: Result Comment: Canc elled via OM: Order cancelled - Patient discharged Performed By: #### L 500.2500, L100.0100 ####[facility] [address] [place], [address] CO2 Normal 21.0-32.0 [facility] Comment on above: Result Comment: Canc elled via OM: Order cancelled - Patient discharged Performed By: #### L 500.2500, L100.0100 ####[facility] [address] [place], [address] CREAT,SERUM Normal 0.70-1.20 [facility] Comment on above: Result Comment: Canc elled via OM: Order cancelled - Patient discharged Performed By: #### L 500.2500, L100.0100 ####[facility] [address] [place], [address] eGFR Normal >60 [facility] Comment on above: Result Comment: Canc elled via OM: Order cancelled - Patient discharged Performed By: #### L 500.2500, L100.0100 ####[facility] [address] [place], [address] GAP Normal 5-15 [facility] Comment on above: Result Comment: Canc elled via OM: Order cancelled - Patient discharged Performed By: #### L 500.2500, L100.0100 ####[facility] [address] [place], [address] GLU Normal 70-99 [facility] Comment on above: Result Comment: Canc elled via OM: Order cancelled - Patient discharged Performed By: #### L 500.2500, L100.0100 ####[facility] [address] [place], [address] Potassium Normal 3.3-5.1 [facility] Comment on above: Result Comment: Canc elled via OM: Order cancelled - Patient discharged Performed By: #### L 500.2500, L100.0100 ####[facility] [address] [place], [address] Basic Metabolic Profile (BMP) Normal 133-145 [facility] Comment on above: Result Comment: Canc elled via OM: Order cancelled - Patient discharged Performed By: #### L 500.2500, L100.0100 ####[facility] [address] [place], [address] Basophil percentageOrdered B y: Garfield Yo on 03-05-2025 Basophils/100 WBC (Bld) 0.5 % 0-[address] [facility] CBC W/Diff, Automatedon 02-17 Absolute Lymph 1.57 X10 3/uL Normal 0.83-4.51 [facility] Comment on above: Performed By: #### L 100.0100, L500.2500 ####[facility] [address] [place], [address] Absolute Neut 7.3 X10 3/uL Normal 2.0-7.7 [facility] Comment on above: Performed By: #### L 100.0100, L500.2500 ####[facility] [address] [place], [address] Basophils/100 WBC (Bld) 0.5 % Normal 0-[address] [facility] Comment on above: Performed By: #### L 100.0100, L500.2500 ####[facility] [address] [place], [address] Eosinophils/100 WBC (Bld) 3.5 % Normal 0-5 [facility] Comment on above: Performed By: #### L 100.0100, L500.2500 ####[facility] [address] [place], [address] Erythrocyte distribution width (RBC) [Ratio] 13.2 % Normal 11.6-14.6 [facility] Comment on above: Performed By: #### L 100.0100, L500.2500 ####[facility] [address] [place], [address] Hematocrit (Bld) [Volume fraction] 25.8 % Low 37-47 [facility] Comment on above: Performed By: #### L 100.0100, L500.2500 ####[facility] [address] [place], [address] Hemoglobin (Bld) [Mass/Vol] 9.0 g/dL Low 12.0-15.0 [facility] Comment on above: Performed By: #### L 100.0100, L500.2500 ####[facility] [address] [place], [address] IG% 1.100 High 0.0-0.9 [facility] Comment on above: Result Comment: IG% - Immature Granulocytes (promyelocytes, myelocytes and metamyelocytes) > 1% indicates that a LEFT SHIFT is Present. Performed By: #### L 100.0100, L500.2500 ####[facility] [address] [place], [address] Lymphocytes/100 WBC (Bld) 15.9 % Low 19-41 [facility] Comment on above: Performed By: #### L 100.0100, L500.2500 ####[facility] [address] [place], [address] MCH (RBC) [Entitic mass] 30.7 pg Normal 27.0-32.0 [facility] Comment on above: Performed By: #### L 100.0100, L500.2500 ####[facility] [address] [place], [address] MCHC (RBC) [Mass/Vol] 34.9 g/dL Normal 32-36 [facility] Comment on above: Performed By: #### L 100.0100, L500.2500 ####[facility] [address] [place], [address] MCV (RBC) [Entitic vol] 88.1 fL Normal 81-99 [facility] Comment on above: Performed By: #### L 100.0100, L500.2500 ####[facility] [address] [place], [address] Monocytes/100 WBC (Bld) 5.6 % Normal 0-10 [facility] Comment on above: Performed By: #### L 100.0100, L500.2500 ####[facility] [address] [place], [address] Neutrophils/100 WBC (Bld) 73.4 % High 47-70 [facility] Comment on above: Performed By: #### L 100.0100, L500.2500 ####[facility] [address] [place], [address] Nucleated RBC (Bld) [#/Vol] 0 10*3/uL Normal 0-5 [facility] Comment on above: Performed By: #### L 100.0100, L500.2500 ####[facility] [address] [place], [address] Platelet mean volume (Bld) [Entitic vol] 10.3 fL Normal 6.2-12.0 [facility] Comment on above: Performed By: #### L 100.0100, L500.2500 ####[facility] [address] [place], [address] Platelets (Bld) [#/Vol] 195 10*3/uL Normal 150-450 [facility] Comment on above: Performed By: #### L 100.0100, L500.2500 ####[facility] [address] [place], [address] RBC (Bld) [#/Vol] 2.93 10*6/uL Low 4.2-5.4 [facility] Comment on above: Performed By: #### L 100.0100, L500.2500 ####[facility] [address] [place], [address] RDW SD 42.1 fl Normal 35.1-43.9 [facility] Comment on above: Performed By: #### L 100.0100, L500.2500 ####[facility] [address] [place], [address] WBC (Bld) [#/Vol] 9.9 10*3/uL Normal 4.4-11.[address] [facility] Comment on above: Performed By: #### L 100.0100, L500.2500 ####[facility] [address] [place], [address] Absolute Neut Normal 2.0-7.7 [facility] Comment on above: Result Comment: Canc elled via OM: Order cancelled - Patient discharged Performed By: #### L 500.2500, L100.0100 ####[facility] [address] [place], [address] HCT Normal 37-47 [facility] Comment on above: Result Comment: Canc elled via OM: Order cancelled - Patient discharged Performed By: #### L 500.2500, L100.0100 ####[facility] [address] [place], [address] HGB Normal 12.0-15.0 [facility] Comment on above: Result Comment: Canc elled via OM: Order cancelled - Patient discharged Performed By: #### L 500.2500, L100.0100 ####[facility] [address] [place], [address] MCH Normal 27.0-32.0 [facility] Comment on above: Result Comment: Canc elled via OM: Order cancelled - Patient discharged Performed By: #### L 500.2500, L100.0100 ####[facility] [address] [place], [address] MCHC Normal 32-36 [facility] Comment on above: Result Comment: Canc elled via OM: Order cancelled - Patient discharged Performed By: #### L 500.2500, L100.0100 ####[facility] [address] [place], [address] MCV Normal 81-99 [facility] Comment on above: Result Comment: Canc elled via OM: Order cancelled - Patient discharged Performed By: #### L 500.2500, L100.0100 ####[facility] [address] [place], [address] NEUT% Normal 47-70 [facility] Comment on above: Result Comment: Canc elled via OM: Order cancelled - Patient discharged Performed By: #### L 500.2500, L100.0100 ####[facility] [address] [place], [address] PLT Normal 150-450 [facility] Comment on above: Result Comment: Canc elled via OM: Order cancelled - Patient discharged Performed By: #### L 500.2500, L100.0100 ####[facility] [address], [address] RBC Normal 4.2-5.4 [facility] Comment on above: Result Comment: Canc elled via OM: Order cancelled - Patient discharged Performed By: #### L 500.2500, L100.0100 ####[facility] [address] [place], [address] RDW CV Normal 11.6-14.6 [facility] Comment on above: Result Comment: Canc elled via OM: Order cancelled - Patient discharged Performed By: #### L 500.2500, L100.0100 ####[facility] [address] [place], [address] RDW SD Normal 35.1-43.9 [facility] Comment on above: Result Comment: Canc elled via OM: Order cancelled - Patient discharged Performed By: #### L 500.2500, L100.0100 ####[facility] [address] [place], [address] WBC Normal 4.4-11.0 [facility] Comment on above: Result Comment: Canc elled via OM: Order cancelled - Patient discharged Performed By: #### L 500.2500, L100.0100 ####[facility] [address] [place], [address] Carbon dioxide, total [Moles /volume] in Central venous bloodOrdered By: Garfield Yo on 03-05-2025 CO2 [Moles/Vol] 27.5 mmol/L 21.0-32.0 [facility] Chloride assayOrdered By: Kristopher Yo on 03-05-2025 Chloride [Moles/Vol] 102 mmol/L 98-108 [facility] Eosinophil percentageOrdered By: Garfield Yo 03-05-2025 Eosinophils/100 WBC (Bld) 3.5 % 0-5 [facility] Erythrocyte distribution wid th (RBC) [Ratio]Ordered By: Garfield Yo on 03-05-2025 Erythrocyte distribution width (RBC) [Entitic vol] 42.1 fL 35.1-43.9 [facility] Erythrocyte distribution wid th ratioOrdered By: Garfield Yo 03-05-2025 Erythrocyte distribution width (RBC) [Ratio] 13.2 % 11.6-14.6 [facility] Estimation of creatinine winston aranceOrdered By: Garfield Yo 03-05-2025 Estimated Creatinine Clearance Calc 41.90 ml/min Low 50-250 [facility] GFR/1.73 sq M.predicted arti g non-blacks MDRD (S/P/Bld) [Vol rate/Area]Ordered By: Garfield Yo 03-05-2025 Estimated GFR (MDRD) Non-Af Amer 74 >60 [facility] Comment on above: mL/min/1.73m2 CKD-EP I Creatinine Equation (2020) Immature granulocytes/100 WB C Auto (Bld)Ordered By: Garfield Yo 03-05-2025 Immature granulocytes/100 WBC (Bld) 1.100 % High 0.0-0.9 [facility] Comment on above: IG% - Immature Granu locytes (promyelocytes, myelocytes and metamyelocytes) > 1% indicates that a LEFT SHIFT is Present. Lymphocytes Auto (Unsp spec) [#/Vol]Ordered By: Garfield Yo 03-05-2025 Lymphocytes (Bld) [#/Vol] 1.57 10*3/uL 0.83-4.51 [facility] Lymphocytes/100 WBC Auto (Un sp spec)Ordered By: Garfield Yo 03-05-2025 Lymphocytes/100 WBC (Bld) 15.9 % Low 19-41 [facility] MCV (mean corpuscular volume ) determinationOrdered By: Garfield Yo on 03-05-2025 MCV (RBC) [Entitic vol] 88.1 fL 81-[address] [facility] Mean corpuscular hemoglobin (MCH) determinationOrdered By: Garfield Yo on 03-05-2025 MCH (RBC) [Entitic mass] 30.7 pg 27.0-32.0 [facility] Mean corpuscular hemoglobin concentration (MCHC) determinationOrdered By: Garfield Yo on 03-05-2025 MCHC (RBC) [Mass/Vol] 34.9 g/dL 32-36 [facility] Mean platelet volume determi nationOrdered By: Garfield Yo on 03-05-2025 Platelet mean volume (Bld) [Entitic vol] 10.3 fL 6.2-12.0 [facility] Monocyte percentageOrdered B y: Garfield Yo on 03-05-2025 Monocytes/100 WBC (Bld) 5.6 % 0-[address] [facility] Neutrophil percentageOrdered By: Garfield Yo on 03-05-2025 Neutrophils/100 WBC (Bld) 73.4 % High 47-70 [facility] Nucleated red blood cell per centageOrdered By: Garfield Yo on 03-05-2025 Nucleated RBC/100 WBC (Bld) [Ratio] 0 % 0-5 [facility] Platelet countOrdered By: Kristopher Yo on 03-05-2025 Platelets (Bld) [#/Vol] 195 10*3/uL 150-450 [facility] Potassium (Unsp spec) [Mass/ Vol]Ordered By: Garfield Yo on 03-05-2025 Potassium [Moles/Vol] 3.3 mmol/L 3.3-5.1 [facility] RBC Auto (Bld) [#/Vol]Ordere d By: Garfield Yo on 03-05-2025 RBC (Bld) [#/Vol] 2.93 10*6/uL Low 4.2-5.4 [facility] Serum creatinine measurement (mass/volume)Ordered By: Garfield Yo on 03-05-2025 Creatinine [Mass/Vol] 0.78 mg/dL 0.70-1.20 [facility] Serum glucose measurement (m ass/volume)Ordered By: Garfield Yo on 03-05-2025 Glucose [Mass/Vol] 100 mg/dL High 70-[address] [facility] Serum or plasma calcium thomas urement (mass/volume)Ordered By: Garfield Yo on 03-05-2025 Calcium [Mass/Vol] 8.5 mg/dL 7.6-11.[address] [facility] Serum or plasma urea nitroge n measurement (mass/volume)Ordered By: Garfield Yo on 03-05-2025 Urea nitrogen [Mass/Vol] 13 mg/dL 4-19 [facility] Sodium levelOrdered By: Garfield Yo on 03-05-2025 Sodium [Moles/Vol] 140 mmol/L 133-[address] [facility] White blood cell (WBC) count Ordered By: Garfield Yo on 03-05-2025 WBC (Bld) [#/Vol] 9.9 10*3/uL 4.4-11.[address] [facility] Absolute lymphocyte countOrd ered By: Allison Tran on 03-04-2025 Lymphocytes Auto (Unsp spec) [#/Vol] 1.35 10*3/uL 0.83-4.51 [facility] Absolute neutrophil countOrd ered By: Allison Tran on 03-04-2025 Neutrophils (Bld) [#/Vol] 9.0 10*3/uL High 2.0-7.7 [facility] Anion gap in Serum or Plasma Ordered By: Allison Tran on 03-04-2025 Anion gap [Moles/Vol] 10 mmol/L 5-15 [facility] Automated lymphocyte count a s percentage of total leukocytesOrdered By: Allison Tran on 03-04-2025 Lymphocytes/100 WBC Auto (Unsp spec) 11.6 % Low 19-41 [facility] BUN/creatinine ratioOrdered By: Allison Tran on 03-04-2025 Urea nitrogen/Creatinine [Mass ratio] 18.5 mg/mg 10- [facility] Basic Metabolic Profile (BMP )on 03-04-2025 BUN/CRE 18.5 RATIO Normal 10- [facility] Comment on above: Performed By: #### L 100.0100, L500.2500 ####[facility] [address] [place], [address] Calcium [Mass/Vol] 8.4 mg/dL Normal 7.6-11.[address] [facility] Comment on above: Performed By: #### L 100.0100, L500.2500 ####[facility] [address] [place], [address] Chloride [Moles/Vol] 103 mmol/L Normal 98-108 [facility] Comment on above: Performed By: #### L 100.0100, L500.2500 ####[facility] [address] [place], [address] CO2 [Moles/Vol] 26.0 mmol/L Normal 21.0-32.0 [facility] Comment on above: Performed By: #### L 100.0100, L500.2500 ####[facility] [address] [place], [address] Creatinine [Mass/Vol] 0.76 mg/dL Normal 0.70-1.20 [facility] Comment on above: Performed By: #### L 100.0100, L500.2500 ####[facility] [address] [place], [address] ECRCL 41.63 ml/min Low 50-250 [facility] Comment on above: Performed By: #### L 100.0100, L500.2500 ####[facility] [address] [place], [address] GAP 10 Normal 5-15 [facility] Comment on above: Performed By: #### L 100.0100, L500.2500 ####[facility] [address] [place], [address] GFR/1.73 sq M.predicted among non-blacks MDRD (S/P/Bld) [Vol rate/Area] 77 mL/min/{1.73_m2} Normal >60 [facility] Comment on above: Result Comment: mL/m in/1.73m2 CKD-EPI Creatinine Equation (2020) Performed By: #### L 100.0100, L500.2500 ####[facility] [address] [place], [address] Glucose [Mass/Vol] 112 mg/dL High 70-[address] [facility] Comment on above: Performed By: #### L 100.0100, L500.2500 ####[facility] [address] [place], [address] Potassium [Moles/Vol] 3.7 mmol/L Normal 3.3-5.1 [facility] Comment on above: Performed By: #### L 100.0100, L500.2500 ####[facility] [address] [place], [address] Sodium [Moles/Vol] 139 mmol/L Normal 133-[address] [facility] Comment on above: Performed By: #### L 100.0100, L500.2500 ####[facility] [address] [place], [address] Urea nitrogen [Mass/Vol] 14 mg/dL Normal 4-19 [facility] Comment on above: Performed By: #### L 100.0100, L500.2500 ####[facility] [address] [place], [address] Basophil percentageOrdered B y: Allison Tran on 03-04-2025 Basophils/100 WBC (Bld) 0.6 % 0-[address] [facility] CBC W/Diff, Automatedon 02-17 Absolute Lymph 1.35 X10 3/uL Normal 0.83-4.51 [facility] Comment on above: Performed By: #### L 100.0100, L500.2500 ####[facility] [address] [place], [address] Absolute Neut 9.0 X10 3/uL High 2.0-7.7 [facility] Comment on above: Performed By: #### L 100.0100, L500.2500 ####[facility] [address], [address] Basophils/100 WBC (Bld) 0.6 % Normal 0-[address] [facility] Comment on above: Performed By: #### L 100.0100, L500.2500 ####[facility] [address] [place], [address] Eosinophils/100 WBC (Bld) 1.8 % Normal 0-5 [facility] Comment on above: Performed By: #### L 100.0100, L500.2500 ####[facility] [address] [place], [address] Erythrocyte distribution width (RBC) [Ratio] 13.2 % Normal 11.6-14.6 [facility] Comment on above: Performed By: #### L 100.0100, L500.2500 ####[facility] [address] [place], [address] Hematocrit (Bld) [Volume fraction] 24.6 % Low 37-47 [facility] Comment on above: Performed By: #### L 100.0100, L500.2500 ####[facility] [address] [place], [address] Hemoglobin (Bld) [Mass/Vol] 8.5 g/dL Low 12.0-15.0 [facility] Comment on above: Performed By: #### L 100.0100, L500.2500 ####[facility] [address] [place], [address] IG% 0.900 Normal 0.0-0.9 [facility] Comment on above: Result Comment: IG% - Immature Granulocytes (promyelocytes, myelocytes and metamyelocytes) > 1% indicates that a LEFT SHIFT is Present. Performed By: #### L 100.0100, L500.2500 ####[facility] [address] [place], [address] Lymphocytes/100 WBC (Bld) 11.6 % Low 19-41 [facility] Comment on above: Performed By: #### L 100.0100, L500.2500 ####[facility] [address] [place], [address] MCH (RBC) [Entitic mass] 29.9 pg Normal 27.0-32.0 [facility] Comment on above: Performed By: #### L 100.0100, L500.2500 ####[facility] [address] [place], [address] MCHC (RBC) [Mass/Vol] 34.6 g/dL Normal 32-36 [facility] Comment on above: Performed By: #### L 100.0100, L500.2500 ####[facility] [address] [place], [address] MCV (RBC) [Entitic vol] 86.6 fL Normal 81-99 [facility] Comment on above: Performed By: #### L 100.0100, L500.2500 ####[facility] [address] [place], [address] Monocytes/100 WBC (Bld) 7.6 % Normal 0-[address] [facility] Comment on above: Performed By: #### L 100.0100, L500.2500 ####[facility] [address] [place], [address] Neutrophils/100 WBC (Bld) 77.5 % High 47-70 [facility] Comment on above: Performed By: #### L 100.0100, L500.2500 ####[facility] [address] [place], [address] Nucleated RBC (Bld) [#/Vol] 0 10*3/uL Normal 0-5 [facility] Comment on above: Performed By: #### L 100.0100, L500.2500 ####[facility] [address] [place], [address] Platelet mean volume (Bld) [Entitic vol] 10.3 fL Normal 6.2-12.0 [facility] Comment on above: Performed By: #### L 100.0100, L500.2500 ####[facility] [address] [place], [address] Platelets (Bld) [#/Vol] 177 10*3/uL Normal 150-450 [facility] Comment on above: Performed By: #### L 100.0100, L500.2500 ####[facility] [address] [place], [address] RBC (Bld) [#/Vol] 2.84 10*6/uL Low 4.2-5.4 [facility] Comment on above: Performed By: #### L 100.0100, L500.2500 ####[facility] [address] [place], [address] RDW SD 41.2 fl Normal 35.1-43.9 [facility] Comment on above: Performed By: #### L 100.0100, L500.2500 ####[facility] [address] [place], [address] WBC (Bld) [#/Vol] 11.6 10*3/uL High 4.4-11.0 [facility] Comment on above: Performed By: #### L 100.0100, L500.2500 ####[facility] [address] [place], [address] Carbon dioxide, total [Moles /volume] in Central venous bloodOrdered By: Allison Tran on 03-04-2025 CO2 [Moles/Vol] 26.0 mmol/L 21.0-32.0 [facility] Chloride assayOrdered By: Na na Chelsea on 03-04-2025 Chloride [Moles/Vol] 103 mmol/L 98-108 [facility] Eosinophil percentageOrdered By: Allison Tran on 03-04-2025 Eosinophils/100 WBC (Bld) 1.8 % 0-5 [facility] Erythrocyte distribution wid th (RBC) [Ratio]Ordered By: Allison Tran on 03-04-2025 Erythrocyte distribution width (RBC) [Entitic vol] 41.2 fL 35.1-43.9 [facility] Erythrocyte distribution wid th ratioOrdered By: Allison Tran on 03-04-2025 Erythrocyte distribution width (RBC) [Ratio] 13.2 % 11.6-14.6 [facility] Erythrocyte distribution wid th standard deviationOrdered By: Allison Tran on 03-04-2025 Erythrocyte distribution width (RBC) [Ratio] 41.2 fl 35.1-43.9 [facility] Estimation of creatinine winston aranceOrdered By: Allison Tran on 03-04-2025 Estimated Creatinine Clearance Calc 41.63 ml/min Low 50-250 [facility] GFR/1.73 sq M.predicted arti g non-blacks MDRD (S/P/Bld) [Vol rate/Area]Ordered By: Allison Tran on 03-04-2025 Estimated GFR (MDRD) Non-Af Amer 77 >60 [facility] Comment on above: mL/min/1.73m2 CKD-EP I Creatinine Equation (2020) Glomerular filtration rate ( GFR) estimation/1.73 sq m using serum, plasma, or whole bOrdered By: Allison Tran 03-04-2025 GFR/1.73 sq M.predicted among non-blacks MDRD (S/P/Bld) [Vol rate/Area] 77 mL/min/{1.73_m2} >60 [facility] Comment on above: mL/min/1.73m2 CKD-EP I Creatinine Equation (2020) Hematocrit Auto (Bld) [Volum e fraction]Ordered By: Allison Tran 03-04-2025 Hematocrit (Bld) [Volume fraction] 24.6 % Low 37-47 [facility] Hemoglobin measurementOrdere d By: Allison Tran on 03-04-2025 Hemoglobin (Bld) [Mass/Vol] 8.5 g/dL Low 12.0-15.0 [facility] Immature granulocytes/100 WB C Auto (Bld)Ordered By: Allison Tran on 03-04-2025 Immature granulocytes/100 WBC (Bld) 0.900 % 0.0-0.9 [facility] Comment on above: IG% - Immature Granu locytes (promyelocytes, myelocytes and metamyelocytes) > 1% indicates that a LEFT SHIFT is Present. Lymphocytes Auto (Unsp spec) [#/Vol]Ordered By: Allison Tran on 03-04-2025 Lymphocytes (Bld) [#/Vol] 1.35 10*3/uL 0.83-4.51 [facility] Lymphocytes/100 WBC Auto (Un sp spec)Ordered By: Allison Tran on 03-04-2025 Lymphocytes/100 WBC (Bld) 11.6 % Low 19-41 [facility] MCV (mean corpuscular volume ) determinationOrdered By: Allison Tran on 03-04-2025 MCV (RBC) [Entitic vol] 86.6 fL 81-[address] [facility] Mean corpuscular hemoglobin (MCH) determinationOrdered By: Allison Tran 03-04-2025 MCH (RBC) [Entitic mass] 29.9 pg 27.0-32.0 [facility] Mean corpuscular hemoglobin concentration (MCHC) determinationOrdered By: Allison Tran 03-04-2025 MCHC (RBC) [Mass/Vol] 34.6 g/dL 32-36 [facility] Mean platelet volume determi nationOrdered By: Allison Tran on 03-04-2025 Platelet mean volume (Bld) [Entitic vol] 10.3 fL 6.2-12.0 [facility] Monocyte percentageOrdered B y: Allison Tran on 03-04-2025 Monocytes/100 WBC (Bld) 7.6 % 0-[address] [facility] Neutrophil percentageOrdered By: Allison Tran on 03-04-2025 Neutrophils/100 WBC (Bld) 77.5 % High 47-70 [facility] Nucleated red blood cell per centageOrdered By: Allison Tran on 03-04-2025 Nucleated RBC/100 WBC (Bld) [Ratio] 0 % 0-5 [facility] Platelet countOrdered By: Jessica Tran on 03-04-2025 Platelets (Bld) [#/Vol] 177 10*3/uL 150-450 [facility] Potassium (Unsp spec) [Mass/ Vol]Ordered By: Allison Tran on 03-04-2025 Potassium [Moles/Vol] 3.7 mmol/L 3.3-5.1 [facility] Potassium measurement (mass/ volume)Ordered By: Allison Tran on 03-04-2025 Potassium (Unsp spec) [Mass/Vol] 3.7 mmol/L 3.3-5.1 [facility] RBC Auto (Bld) [#/Vol]Ordere d By: Allison Tran on 03-04-2025 RBC (Bld) [#/Vol] 2.84 10*6/uL Low 4.2-5.4 [facility] Serum creatinine measurement (mass/volume)Ordered By: Allison Tran on 03-04-2025 Creatinine [Mass/Vol] 0.76 mg/dL 0.70-1.20 [facility] Serum glucose measurement (m ass/volume)Ordered By: Allison Tran on 03-04-2025 Glucose [Mass/Vol] 112 mg/dL High 70-[address] [facility] Serum or plasma calcium thomas urement (mass/volume)Ordered By: Allison Tran on 03-04-2025 Calcium [Mass/Vol] 8.4 mg/dL 7.6-11.[address] [facility] Serum or plasma urea nitroge n measurement (mass/volume)Ordered By: Allison Tran on 03-04-2025 Urea nitrogen [Mass/Vol] 14 mg/dL 4-19 [facility] Sodium levelOrdered By: Allison Tran on 03-04-2025 Sodium [Moles/Vol] 139 mmol/L 133-[address] [facility] White blood cell (WBC) count Ordered By: Allison Tran on 03-04-2025 WBC (Bld) [#/Vol] 11.6 10*3/uL High 4.4-11.0 [facility] Basic Metabolic Profile (BMP )on 03-03-2025 BUN/CRE 13.6 RATIO Normal 10-20 [facility] Comment on above: Performed By: #### L 100.0100, L500.2500 ####[facility] [address] [place], [address] Calcium [Mass/Vol] 8.3 mg/dL Normal 7.6-11.[address] [facility] Comment on above: Performed By: #### L 100.0100, L500.2500 ####[facility] [address] [place], [address] Chloride [Moles/Vol] 102 mmol/L Normal 98-108 [facility] Comment on above: Performed By: #### L 100.0100, L500.2500 ####[facility] [address] [place], [address] CO2 [Moles/Vol] 25.7 mmol/L Normal 21.0-32.0 [facility] Comment on above: Performed By: #### L 100.0100, L500.2500 ####[facility] [address] [place], [address] Creatinine [Mass/Vol] 0.94 mg/dL Normal 0.70-1.20 [facility] Comment on above: Performed By: #### L 100.0100, L500.2500 ####[facility] [address] [place], [address] ECRCL 35.43 ml/min Low 50-250 [facility] Comment on above: Performed By: #### L 100.0100, L500.2500 ####[facility] [address] [place], [address] GAP 10 Normal 5-15 [facility] Comment on above: Performed By: #### L 100.0100, L500.2500 ####[facility] [address] [place], [address] GFR/1.73 sq M.predicted among non-blacks MDRD (S/P/Bld) [Vol rate/Area] 60 mL/min/{1.73_m2} Normal >60 [facility] Comment on above: Result Comment: mL/m in/1.73m2 CKD-EPI Creatinine Equation (2020) Performed By: #### L 100.0100, L500.2500 ####[facility] [address] [place], [address] Glucose [Mass/Vol] 102 mg/dL High 70-[address] [facility] Comment on above: Performed By: #### L 100.0100, L500.2500 ####[facility] [address] [place], [address] Potassium [Moles/Vol] 3.9 mmol/L Normal 3.3-5.1 [facility] Comment on above: Result Comment: Hemo lysis present, Results??could be affected. ?? Performed By: #### L 100.0100, L500.2500 ####[facility] [address] [place], [address] Sodium [Moles/Vol] 137 mmol/L Normal 133-[address] [facility] Comment on above: Performed By: #### L 100.0100, L500.2500 ####[facility] [address] [place], [address] Urea nitrogen [Mass/Vol] 13 mg/dL Normal 4-19 [facility] Comment on above: Performed By: #### L 100.0100, L500.2500 ####[facility] [address] [place], [address] CBC W/Diff, Automatedon 02-17 Absolute Lymph 1.61 X10 3/uL Normal 0.83-4.51 [facility] Comment on above: Performed By: #### L 100.0100, L500.2500 ####[facility] [address] [place], [address] Absolute Neut 9.5 X10 3/uL High 2.0-7.7 [facility] Comment on above: Performed By: #### L 100.0100, L500.2500 ####[facility] [address] [place], [address] Basophils/100 WBC (Bld) 0.5 % Normal 0-[address] [facility] Comment on above: Performed By: #### L 100.0100, L500.2500 ####[facility] [address] [place], [address] Eosinophils/100 WBC (Bld) 1.9 % Normal 0-5 [facility] Comment on above: Performed By: #### L 100.0100, L500.2500 ####[facility] [address] [place], [address] Erythrocyte distribution width (RBC) [Ratio] 13.2 % Normal 11.6-14.6 [facility] Comment on above: Performed By: #### L 100.0100, L500.2500 ####[facility] [address] [place], [address] Hematocrit (Bld) [Volume fraction] 25.5 % Low 37-47 [facility] Comment on above: Performed By: #### L 100.0100, L500.2500 ####[facility] [address] [place], [address] Hemoglobin (Bld) [Mass/Vol] 8.7 g/dL Low 12.0-15.0 [facility] Comment on above: Performed By: #### L 100.0100, L500.2500 ####[facility] [address] [place], [address] IG% 0.800 Normal 0.0-0.9 [facility] Comment on above: Result Comment: IG% - Immature Granulocytes (promyelocytes, myelocytes and metamyelocytes) > 1% indicates that a LEFT SHIFT is Present. Performed By: #### L 100.0100, L500.2500 ####[facility] [address] [place], [address] Lymphocytes/100 WBC (Bld) 12.6 % Low 19-41 [facility] Comment on above: Performed By: #### L 100.0100, L500.2500 ####[facility] [address] [place], [address] MCH (RBC) [Entitic mass] 30.2 pg Normal 27.0-32.0 [facility] Comment on above: Performed By: #### L 100.0100, L500.2500 ####[facility] [address] [place], [address] MCHC (RBC) [Mass/Vol] 34.1 g/dL Normal 32-36 [facility] Comment on above: Performed By: #### L 100.0100, L500.2500 ####[facility] [address] [place], [address] MCV (RBC) [Entitic vol] 88.5 fL Normal 81-[address] [facility] Comment on above: Performed By: #### L 100.0100, L500.2500 ####[facility] [address] [place], [address] Monocytes/100 WBC (Bld) 9.6 % Normal 0-[address] [facility] Comment on above: Performed By: #### L 100.0100, L500.2500 ####[facility] [address] [place], [address] Neutrophils/100 WBC (Bld) 74.6 % High 47-70 [facility] Comment on above: Performed By: #### L 100.0100, L500.2500 ####[facility] [address] [place], [address] Nucleated RBC (Bld) [#/Vol] 0 10*3/uL Normal 0-5 [facility] Comment on above: Performed By: #### L 100.0100, L500.2500 ####[facility] [address] [place], [address] Platelet mean volume (Bld) [Entitic vol] 10.4 fL Normal 6.2-12.0 [facility] Comment on above: Performed By: #### L 100.0100, L500.2500 ####[facility] [address] [place], [address] Platelets (Bld) [#/Vol] 171 10*3/uL Normal 150-450 [facility] Comment on above: Performed By: #### L 100.0100, L500.2500 ####[facility] [address] [place], [address] RBC (Bld) [#/Vol] 2.88 10*6/uL Low 4.2-5.4 [facility] Comment on above: Performed By: #### L 100.0100, L500.2500 ####[facility] [address] [place], [address] RDW SD 42.8 fl Normal 35.1-43.9 [facility] Comment on above: Performed By: #### L 100.0100, L500.2500 ####[facility] [address] [place], [address] WBC (Bld) [#/Vol] 12.8 10*3/uL High 4.4-11.0 [facility] Comment on above: Performed By: #### L 100.0100, L500.2500 ####[facility] [address] [place], [address] MR/WUXOOEIM5zl 04-15-2025 MR/POSTOPAN2 [facility] Medical Records Department [address] [place] [address] Anesthesia Postop Eval II 03/03/25904 MR#: [id number] Acct: [id number] Name: MICHAELA BRANDT Rep #: [id number] : 1940 84 From: Jim Vidales MD PCP: Dr. 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 Spontaneous unlabored Yes 03/02/25 13:00 CARDROOM P[employer] GRADER.JDEF respirations Mental status Asleep 03/02/25 13:00 CARDROOM P[employer] C[employer] GRADER.JDEF nausea No 03/02/25 13:00 CARDROOM PLASTIC CARD GRADER.JDEF Vomiting No 03/02/25 13:00 CARDROOM PLASTIC CARD GRADER.JDEF Anesthesia Postop Eval I: Fluid Summary Crystalloid volume administer 600 03/02/25 13:00 CARDROOM P[employer] CARD GRADER.JDEF (ml) Colloids volume administered ( ml) Blood Product volume administered (ml) Total IV fluid infused 600 03/02/25 13:00 CARDROOM PLASTIC CARD GRADER.JDEF Anesthesia Postop Eval I: Summary Notes Anesthesia Complication No 03/02/25 13:00 CARDROOM PLASTIC CARD GRADER.JDEF Anesthesia Complication Comment: Post-operative progress note Anesthesia: Postop Eval II Evaluation Mental status: Awake and Calm Pain Level: 2 nausea: No Vomiting: No Complications Anesthesia Complication: No 03/03/25904 Jim Vidales MD Cosigner Signature: Date CC: Signed Normal [facility] Bilirubin, totalOrdered By: Roro Long on 03-02-2025 Bilirubin [Mass/Vol] 1.32 mg/dL High 0.00-1.30 [facility] CBC W/Diff, Automatedon 02-17 Absolute Lymph 1.50 X10 3/uL Normal 0.83-4.51 [facility] Comment on above: Performed By: #### L 100.0100, L501.9520, L501.2300, L501.5200, L500.4050 ####[facility] [address] [place], [address] Absolute Neut 9.9 X10 3/uL High 2.0-7.7 [facility] Comment on above: Performed By: #### L 100.0100, L501.9520, L501.2300, L501.5200, L500.4050 ####[facility] [address] [place], [address] Basophils/100 WBC (Bld) 0.4 % Normal 0-[address] [facility] Comment on above: Performed By: #### L 100.0100, L501.9520, L501.2300, L501.5200, L500.4050 ####[facility] [address] [place], [address] Eosinophils/100 WBC (Bld) 0.9 % Normal 0-5 [facility] Comment on above: Performed By: #### L 100.0100, L501.9520, L501.2300, L501.5200, L500.4050 ####[facility] [address] [place], [address] Erythrocyte distribution width (RBC) [Ratio] 13.2 % Normal 11.6-14.6 [facility] Comment on above: Performed By: #### L 100.0100, L501.9520, L501.2300, L501.5200, L500.4050 ####[facility] [address] [place], [address] Hematocrit (Bld) [Volume fraction] 33.7 % Low 37-47 [facility] Comment on above: Performed By: #### L 100.0100, L501.9520, L501.2300, L501.5200, L500.4050 ####[facility] [address] [place], [address] Hemoglobin (Bld) [Mass/Vol] 11.6 g/dL Low 12.0-15.0 [facility] Comment on above: Performed By: #### L 100.0100, L501.9520, L501.2300, L501.5200, L500.4050 ####[facility] [address] [place], [address] IG% 0.900 Normal 0.0-0.9 [facility] Comment on above: Result Comment: IG% - Immature Granulocytes (promyelocytes, myelocytes and metamyelocytes) > 1% indicates that a LEFT SHIFT is Present. Performed By: #### L 100.0100, L501.9520, L501.2300, L501.5200, L500.4050 ####[facility] [address] [place], [address] Lymphocytes/100 WBC (Bld) 11.6 % Low 19-41 [facility] Comment on above: Performed By: #### L 100.0100, L501.9520, L501.2300, L501.5200, L500.4050 ####[facility] [address] [place], [address] MCH (RBC) [Entitic mass] 30.5 pg Normal 27.0-32.0 [facility] Comment on above: Performed By: #### L 100.0100, L501.9520, L501.2300, L501.5200, L500.4050 ####[facility] [address] [place], [address] MCHC (RBC) [Mass/Vol] 34.4 g/dL Normal 32-36 [facility] Comment on above: Performed By: #### L 100.0100, L501.9520, L501.2300, L501.5200, L500.4050 ####[facility] [address] [place], [address] MCV (RBC) [Entitic vol] 88.7 fL Normal 81-99 [facility] Comment on above: Performed By: #### L 100.0100, L501.9520, L501.2300, L501.5200, L500.4050 ####[facility] [address] [place], [address] Monocytes/100 WBC (Bld) 9.5 % Normal 0-10 [facility] Comment on above: Performed By: #### L 100.0100, L501.9520, L501.2300, L501.5200, L500.4050 ####[facility] [address] [place], [address] Neutrophils/100 WBC (Bld) 76.7 % High 47-70 [facility] Comment on above: Performed By: #### L 100.0100, L501.9520, L501.2300, L501.5200, L500.4050 ####[facility] [address] [place], [address] Nucleated RBC (Bld) [#/Vol] 0 10*3/uL Normal 0-5 [facility] Comment on above: Performed By: #### L 100.0100, L501.9520, L501.2300, L501.5200, L500.4050 ####[facility] [address] [place], [address] Platelet mean volume (Bld) [Entitic vol] 9.5 fL Normal 6.2-12.0 [facility] Comment on above: Performed By: #### L 100.0100, L501.9520, L501.2300, L501.5200, L500.4050 ####[facility] [address] [place], [address] Platelets (Bld) [#/Vol] 203 10*3/uL Normal 150-450 [facility] Comment on above: Performed By: #### L 100.0100, L501.9520, L501.2300, L501.5200, L500.4050 ####[facility] [address] [place], [address] RBC (Bld) [#/Vol] 3.80 10*6/uL Low 4.2-5.4 [facility] Comment on above: Performed By: #### L 100.0100, L501.9520, L501.2300, L501.5200, L500.4050 ####[facility] [address] [place], [address] RDW SD 42.8 fl Normal 35.1-43.9 [facility] Comment on above: Performed By: #### L 100.0100, L501.9520, L501.2300, L501.5200, L500.4050 ####[facility] [address] [place], [address] WBC (Bld) [#/Vol] 12.9 10*3/uL High 4.4-11.0 [facility] Comment on above: Performed By: #### L 100.0100, L501.9520, L501.2300, L501.5200, L500.4050 ####[facility] [address] [place], [address] Comprehensive Metabolic Prof nhon 03-02-2025 Albumin [Mass/Vol] 3.7 g/dL Normal 3.4-4.[address] [facility] Comment on above: Performed By: #### L 100.0100, L501.9520, L501.2300, L501.5200, L500.4050 ####[facility] [address] [place], [address] Albumin/Globulin [Mass ratio] 1.6 {ratio} Normal 0.9-2.4 [facility] Comment on above: Performed By: #### L 100.0100, L501.9520, L501.2300, L501.5200, L500.4050 ####[facility] [address] [place], [address] ALK PHOS 55 U/L Normal 35-104 [facility] Comment on above: Performed By: #### L 100.0100, L501.9520, L501.2300, L501.5200, L500.4050 ####[facility] [address] [place], [address] ALT [Catalytic activity/Vol] 11 U/L Normal <=34 [facility] Comment on above: Performed By: #### L 100.0100, L501.9520, L501.2300, L501.5200, L500.4050 ####[facility] [address] [place], [address] AST [Catalytic activity/Vol] 27 U/L Normal <=31 [facility] Comment on above: Performed By: #### L 100.0100, L501.9520, L501.2300, L501.5200, L500.4050 ####[facility] [address] [place], [address] Bilirubin [Mass/Vol] 1.32 mg/dL High 0.00-1.30 [facility] Comment on above: Performed By: #### L 100.0100, L501.9520, L501.2300, L501.5200, L500.4050 ####[facility] [address] [place], [address] BUN/CRE 15.4 RATIO Normal 10-20 [facility] Comment on above: Performed By: #### L 100.0100, L501.9520, L501.2300, L501.5200, L500.4050 ####[facility] [address] [place], [address] Calcium [Mass/Vol] 9.0 mg/dL Normal 7.6-11.[address] [facility] Comment on above: Performed By: #### L 100.0100, L501.9520, L501.2300, L501.5200, L500.4050 ####[facility] [address] [place], [address] Chloride [Moles/Vol] 103 mmol/L Normal 98-108 [facility] Comment on above: Performed By: #### L 100.0100, L501.9520, L501.2300, L501.5200, L500.4050 ####[facility] [address] [place], [address] CO2 [Moles/Vol] 27.7 mmol/L Normal 21.0-32.0 [facility] Comment on above: Performed By: #### L 100.0100, L501.9520, L501.2300, L501.5200, L500.4050 ####[facility] [address] [place], [address] Creatinine [Mass/Vol] 1.06 mg/dL Normal 0.70-1.20 [facility] Comment on above: Performed By: #### L 100.0100, L501.9520, L501.2300, L501.5200, L500.4050 ####[facility] [address] [place], [address] ECRCL 31.45 ml/min Low 50-250 [facility] Comment on above: Performed By: #### L 100.0100, L501.9520, L501.2300, L501.5200, L500.4050 ####[facility] [address] [place], [address] GAP 9 Normal 5-15 [facility] Comment on above: Performed By: #### L 100.0100, L501.9520, L501.2300, L501.5200, L500.4050 ####[facility] [address] [place], [address] GFR/1.73 sq M.predicted among non-blacks MDRD (S/P/Bld) [Vol rate/Area] 52 mL/min/{1.73_m2} Low >60 [facility] Comment on above: Result Comment: mL/m in/1.73m2 CKD-EPI Creatinine Equation (2020) Performed By: #### L 100.0100, L501.9520, L501.2300, L501.5200, L500.4050 ####[facility] [address] [place], [address] Globulin (S) [Mass/Vol] 2.3 g/dL Normal 2.2-4.2 [facility] Comment on above: Performed By: #### L 100.0100, L501.9520, L501.2300, L501.5200, L500.4050 ####[facility] [address] [place], [address] Glucose [Mass/Vol] 109 mg/dL High 70-[address] [facility] Comment on above: Performed By: #### L 100.0100, L501.9520, L501.2300, L501.5200, L500.4050 ####[facility] [address] [place], [address] Potassium [Moles/Vol] 4.0 mmol/L Normal 3.3-5.1 [facility] Comment on above: Performed By: #### L 100.0100, L501.9520, L501.2300, L501.5200, L500.4050 ####[facility] [address] [place], [address] Sodium [Moles/Vol] 140 mmol/L Normal 133-[address] [facility] Comment on above: Performed By: #### L 100.0100, L501.9520, L501.2300, L501.5200, L500.4050 ####[facility] [address] [place], [address] T PROT 6.0 g/dL Normal 5.9-8.4 [facility] Comment on above: Performed By: #### L 100.0100, L501.9520, L501.2300, L501.5200, L500.4050 ####[facility] [address] [place], [address] Urea nitrogen [Mass/Vol] 16 mg/dL Normal 4-19 [facility] Comment on above: Performed By: #### L 100.0100, L501.9520, L501.2300, L501.5200, L500.4050 ####[facility] [address] [place], [address] Consultation - Orthopedicson 03-02-2025 Consultation - Orthopedics [facility] Medical Records Department [address] [place] [address] Consultation - Orthopedics 03/02/25 1100 MR#: [id number] Acct: [id number] Name: MICHAELA BRANDT Rep #: [id number] : 1940 84 From: Eiljah Overton MD PCP: Dr. Dillan Santiago MD Status:ADM IN Location: [facility] [id number] HPI Consult Data Date of Consult: 03/02/25 HPI Narrative Reason for Consultation: Left hip pain HPI Narrative: MICHAELA BRANDT, is a 84 F who presents with left hip pain. Patient's daughter is at bedside and is her medical power of business attorney. Patient does have memory issues and [...] and was the primary provider of information. [facility] Medical History Hypothyroidism Anxiety Dementia Self-catheterizes [...] Room Air (more content not included)... Normal [facility] Electrocardiogram reportOrde red By: Grazyna Santizo on 03-02-2025 EKG study [facility] Cardiovascular Services [address] [place] [address] 12 Lead EKG 03/01/25 1232 MR#: [id number] Acct: [id number] Name: MICHAELA BRANDT Rep #:[id number] : 1940 84 From: Grazyna palmer MD Attending Dr: Dr. Allison Tran MD Status: ADM IN Ordering Dr: Guerrero Valerio DO Date: 0 03/01/25 Location: [facility] Sex: F C Admitted: 03/01/25 Test Reason [...] Hari product ) Borderline ECG Confirmed by Grazyna Santizo ([id number]), film editor GABI PALOMARES ([id number]) on 51:19:11 PM Referred By: Confirmed By: Grazyna Santizo 03/02/25 1319 Date _ Grazyna Santizo MD CC: Dr. Dillan Santiago MD; Dr. Guerrero Valerio DO; Dr. Allison Tran MD ~ Signed [facility] Other Phone: Hip Min 2 Views (Portable)on 03-02-2025 Hip Min 2 Views (Portable) [facility] Imaging Services [address] [place], [place] [address] Hip Min 2 Views (Portable) MR#: [id number] Acct: [id number] Name: MICHAELA BRANDT Rep #: [id number] : 1940 F 84 From: Crystal Sommer PCP: Dr. Dillan Santiago MD Status: ADM IN Study: Hip Min 2 Views (Portable) Date of Exam: 03/02 Exam# [id number] Ordering Dr: Elijah Overton MD PROCEDURE: HIP [...] evidence of fracture or loosening. Reading Location: [id number] CC: Dr. Dillan Santiago MD; Dr. Elijah Overton MD Compensation Agent: Signed Normal [facility] Hip Min 2 Views (Portable) [facility] Imaging Services [address] [place] [id number] Hip Min 2 Views (Portable) MR#: [id number] Acct: [id number] Name: MICHAELA BRANDT Rep #: [id number] : 1940 F 84 From: Felipe ramon MD PCP: Dr. Dillan Santiago MD Status: ADM IN Study: Hip Min 2 Views (Portable) Date of Exam: 03/02 Exam# [id number] Ordering Dr: Elijah Overton MD PROCEDURE: Intraoperative [...] of the left intertrochanteric fracture. Reading Location: [place] [address] CC: Dr. Dillan Santiago MD; Dr. Elijah Overton MD Compensation Agent: Signed Normal [facility] Laboratory - Chemistry and C hemistry - challengeOrdered By: Roro Long on 03-02-2025 AST [Catalytic activity/Vol] 27 U/L <32 [facility] MR/POSTOP.ANEon 03-02-2025 MR/POSTOP.[facility] Medical Records Department [address] [place] [address] Anesthesia Postop Eval I 03/02/25 1259 MR#: [id number] Acct: [id number] Name: MICHAELA BRANDT Rep #: [id number] : 1940 84 From: Joanna Delgado CRNA PCP: Dr. Dillan Santiago MD Status:ADM IN Y Race: C Location: [place] [address] Anesthesia: Postop Eval I Current Vital Signs [...] completed: Yes 03/02/25 1300 Date Joanna Delgado CRNA Cosigner Signature: Date CC: Signed Normal [facility] Magnesiumon 03-02-2025 Magnesium [Mass/Vol] 2.2 mg/dL Normal 1.5-2.2 [facility] Comment on above: Performed By: #### L 100.0100, L501.9520, L501.2300, L501.5200, L500.4050 ####[facility] [address] [place], [address] Magnesium (Unsp spec) [Mass/ Vol]Ordered By: Roro Long on 03-02-2025 Magnesium [Mass/Vol] 2.2 mg/dL 1.5-2.2 [facility] Magnesium measurement (mass/ volume)Ordered By: Roro Long on 03-02-2025 Magnesium (Unsp spec) [Mass/Vol] 2.2 mg/dL 1.5-2.2 [facility] Operative Reporton 5 Operative Report [facility] Medical Records Department [address] [facility] [place] [address] Operative Report 03/02/25 1100 MR#: [id number] Acct: [id number] Name: MICHAELA BRANDT Rep #: [id number] : 1940 84 From: Elijah Overton MD PCP: Dr. Dillan Santiago MD Status:ADM IN Location: [facility] [id number] Operative Report (Standard) Operative Information Date of Procedure: 03/02/25 Pre-Operative Diagnosis: Left intertrochanteric hip fracture Post-Operative Diagnosis: Left intertrochanteric hip fracture Surgery/Procedure Performed: Left hip cephalomedullary nail residential life director: No Type of Anesthesia: General RN Documented Start/Stop Times: Operation Date: 03/02/25 13:15 Case Time Into Pre-Op 03/02/25 10:50 Anesthesia Start 03/02/25 11:50 Into Room 03/02/25 11:50 Procedure Start 03/02/25 12:16 Procedure End 03/02/25 12:41 Procedure Start Time: 12:16 Procedure Stop Time: 12:41 Select all DRAINS/GRAFTS/IMPLANTS that apply: Implanted device Implanted device details: Hiddenite gamma nail 3, 11 mm x 180 [...] the placement of the nail and a Hiddenite short gamma 3 by 11 mm 125 degree hip nail was selected. The 12.5 mm reamer was then passed. The nail was then attached to the tour conductor and inserted into the intramedullary canal. The appropriate depth was verified and the skin incision for the lag screw was made. The lag screw madelin vela was then placed under live fluoroscopy [...] Findings: S (more content not included)... Normal [facility] Phosphoruson 03-02-2025 Phosphate [Mass/Vol] 4.0 mg/dL Normal 2.7-4.5 [facility] Comment on above: Performed By: #### L 100.0100, L501.9520, L501.2300, L501.5200, L500.4050 ####[facility] [address] [place], [address] Serum globulin measurementOr dered By: Roro Long on 03-02-2025 Globulin (S) [Mass/Vol] 2.3 g/dL 2.2-4.[address] [facility] Serum or plasma alanine tillman otransferase (ALT) measurementOrdered By: Roro Long on 03-02-2025 ALT [Catalytic activity/Vol] 11 U/L <35 [facility] Serum or plasma albumin thomas urement (mass/volume)Ordered By: Roro Long on 03-02-2025 Albumin [Mass/Vol] 3.7 g/dL 3.4-4.[address] [facility] Serum or plasma albumin/glob ulin mass ratioOrdered By: Roro Long on 03-02-2025 Albumin/Globulin [Mass ratio] 1.6 {ratio} 0.9-2.4 [facility] Serum or plasma alkaline mariah sphatase measurementOrdered By: Roro Long on 03-02-2025 ALP [Catalytic activity/Vol] 55 U/L 35-104 [facility] Serum phosphorus measurement Ordered By: Roro Long on 03-02-2025 Phosphorus Level 4.0 mg/dL 2.7-4.5 [facility] TSH DL <= 0.005 mIU/L QnOrde red By: Roro Long on 03-02-2025 Thyroid Stimulating Hormone (TSH) 1.470 uIU/mL 0.300-4.200 [facility] TSH Qn 1.470 uIU/mL 0.300-4.200 [facility] Thyroid Stim Hormone (TSH)on 03-02-2025 TSH 1.470 uIU/mL Normal 0.300-4.200 [facility] Comment on above: Performed By: #### L 100.0100, L501.9520, L501.2300, L501.5200, L500.4050 ####[facility] [address] [facility] [address] [place], [address] Total proteinOrdered By: Indu Long on 03-02-2025 Protein [Mass/Vol] 6.0 g/dL 5.9-8.[address] [facility] 12 Lead EKGon 03-01-2025 12 Lead EKG [facility] Cardiovascular Services [address] [place] [address] 12 Lead EKG 03/01/25 1232 MR#: [id number] Acct: [id number] Name: MICHAELA BRANDT Rep #: [id number] : 1940 84 From: Grazyna Santizo MD Attending Dr: Dr. Allison Tran MD Status: AD M IN Ordering Dr: Guerrero Valerio DO Date: 03/01/25 Location: [facility] Sex: F C Admitted: 03/01/25 Test Reason [...] Hari product ) Borderline ECG Confirmed by Grazyna Santizo ([id number]), film editor GABI PALOMARES ([id number]) on 03/02/2025 1:19:11 PM Referred By: Confirmed By: Grazyna Santizo 03/02/25 1319 Date Grazyna Santizo MD CC: Dr. Dillan Santiago MD; Dr. Guerrero Valerio DO; Dr. Allison Tran MD Signed Normal [facility] Absolute neutrophil countOrd ered By: Guerrero Valerio on 03-01-2025 Neutrophils (Bld) [#/Vol] 17.3 10*3/uL High 2.0-7.7 [facility] Activated partial thrombopla stin time (aPTT) in platelet poor plasma by coagulation aOrdered By: Guerrero Valerio on 03-01-2025 aPTT Coag (PPP) [Time] 25.8 s 24.1-36.2 [facility] Anion gap in Serum or Plasma Ordered By: Guerrero Valerio on 03-01-2025 Anion gap [Moles/Vol] 11 mmol/L - [facility] BUN/creatinine ratioOrdered By: Guerrero Valerio on 03-01-2025 Urea nitrogen/Creatinine [Mass ratio] 17.4 mg/mg - [facility] Basic Metabolic Profile (BMP )on 03-01-2025 BUN/CRE 17.4 RATIO Normal - [facility] Comment on above: Performed By: #### L 300.4310, L300.3900, BTS, L100.0100, L500.2500 ####[facility] [address] [place], [address] Calcium [Mass/Vol] 9.2 mg/dL Normal 7.6-11.[address] [facility] Comment on above: Performed By: #### L 300.4310, L300.3900, BTS, L100.0100, L500.2500 ####[facility] [address] [place], [address] Chloride [Moles/Vol] 104 mmol/L Normal 98-108 [facility] Comment on above: Performed By: #### L 300.4310, L300.3900, BTS, L100.0100, L500.2500 ####[facility] [address] [place], [address] CO2 [Moles/Vol] 25.2 mmol/L Normal 21.0-32.0 [facility] Comment on above: Performed By: #### L 300.4310, L300.3900, BTS, L100.0100, L500.2500 ####[facility] [address] [place], [address] Creatinine [Mass/Vol] 0.90 mg/dL Normal 0.70-1.20 [facility] Comment on above: Performed By: #### L 300.4310, L300.3900, BTS, L100.0100, L500.2500 ####[facility] [address] [place], [address] ECRCL 37.62 ml/min Low 50-250 [facility] Comment on above: Performed By: #### L 300.4310, L300.3900, BTS, L100.0100, L500.2500 ####[facility] [address] [place], [address] GAP 11 Normal 5-15 [facility] Comment on above: Performed By: #### L 300.4310, L300.3900, BTS, L100.0100, L500.2500 ####[facility] [address] [place], [address] GFR/1.73 sq M.predicted among non-blacks MDRD (S/P/Bld) [Vol rate/Area] 63 mL/min/{1.73_m2} Normal >60 [facility] Comment on above: Result Comment: mL/m in/1.73m2 CKD-EPI Creatinine Equation (2020) Performed By: #### L 300.4310, L300.3900, BTS, L100.0100, L500.2500 ####[facility] [address] [place], [address] Glucose [Mass/Vol] 148 mg/dL High 70-[address] [facility] Comment on above: Performed By: #### L 300.4310, L300.3900, BTS, L100.0100, L500.2500 ####[facility] [address] [place], [address] Potassium [Moles/Vol] 4.2 mmol/L Normal 3.3-5.1 [facility] Comment on above: Performed By: #### L 300.4310, L300.3900, BTS, L100.0100, L500.2500 ####[facility] [address] [place], [address] Sodium [Moles/Vol] 140 mmol/L Normal 133-[address] [facility] Comment on above: Performed By: #### L 300.4310, L300.3900, BTS, L100.0100, L500.2500 ####[facility] [address] [place], [address] Urea nitrogen [Mass/Vol] 16 mg/dL Normal 4-19 [facility] Comment on above: Performed By: #### L 300.4310, L300.3900, BTS, L100.0100, L500.2500 ####[facility] [address] [place], [address] Basophil percentageOrdered B y: Guerrero Valerio on 03-01-2025 Basophils/100 WBC (Bld) 0.2 % 0-[address] [facility] Brain/Head without Contrasto n 03-01-2025 Brain/Head without Contrast [facility] Imaging Services [address] [place] [address] Brain/Head without Contrast MR#: [id number] Acct: [id number] Name: MICHAELA BRANDT Rep #: [id number] : 1940 F 84 From: Janet Salas nd, MD PCP: Dr. Dillan Santiago MD Status: REG ER Study: Brain/Head without Contrast Date of Exam: 02/17 02/10 Exam# [id number] Ordering Dr: Guerrero Valerio DO EXAM: BRAIN/HEAD [...] ischemic changes and age-related changes. Reading Location: [facility] CC: Dr. Dillan Santiago MD; Dr. Guerrero Valerio DO Compensation Agent: Signed Normal [facility] CBC W/Diff, Automatedon 02-17 Absolute Lymph 0.63 X10 3/uL Low 0.83-4.51 [facility] Comment on above: Performed By: #### L 300.4310, L300.3900, BTS, L100.0100, L500.2500 ####[facility] [address] [place], [address] Absolute Neut 17.3 X10 3/uL High 2.0-7.7 [facility] Comment on above: Performed By: #### L 300.4310, L300.3900, BTS, L100.0100, L500.2500 ####[facility] [address] [place], [address] Basophils/100 WBC (Bld) 0.2 % Normal 0-[address] [facility] Comment on above: Performed By: #### L 300.4310, L300.3900, BTS, L100.0100, L500.2500 ####[facility] [address] [place], [address] Eosinophils/100 WBC (Bld) 0.0 % Normal 0-5 [facility] Comment on above: Performed By: #### L 300.4310, L300.3900, BTS, L100.0100, L500.2500 ####[facility] [address] [place], [address] Erythrocyte distribution width (RBC) [Ratio] 12.9 % Normal 11.6-14.6 [facility] Comment on above: Performed By: #### L 300.4310, L300.3900, BTS, L100.0100, L500.2500 ####[facility] [address] [place], [address] Hematocrit (Bld) [Volume fraction] 37.3 % Normal 37-47 [facility] Comment on above: Performed By: #### L 300.4310, L300.3900, BTS, L100.0100, L500.2500 ####[facility] [address] [place], [address] Hemoglobin (Bld) [Mass/Vol] 13.0 g/dL Normal 12.0-15.0 [facility] Comment on above: Performed By: #### L 300.4310, L300.3900, BTS, L100.0100, L500.2500 ####[facility] [address] [place], [address] IG% 0.600 Normal 0.0-0.9 [facility] Comment on above: Result Comment: IG% - Immature Granulocytes (promyelocytes, myelocytes and metamyelocytes) > 1% indicates that a LEFT SHIFT is Present. Performed By: #### L 300.4310, L300.3900, BTS, L100.0100, L500.2500 ####[facility] [address] [place], [address] Lymphocytes/100 WBC (Bld) 3.3 % Low 19-41 [facility] Comment on above: Performed By: #### L 300.4310, L300.3900, BTS, L100.0100, L500.2500 ####[facility] [address] [place], [address] MCH (RBC) [Entitic mass] 30.4 pg Normal 27.0-32.0 [facility] Comment on above: Performed By: #### L 300.4310, L300.3900, BTS, L100.0100, L500.2500 ####[facility] [address] [place], [address] MCHC (RBC) [Mass/Vol] 34.9 g/dL Normal 32-36 [facility] Comment on above: Performed By: #### L 300.4310, L300.3900, BTS, L100.0100, L500.2500 ####[facility] [address] [place], [address] MCV (RBC) [Entitic vol] 87.1 fL Normal 81-[address] [facility] Comment on above: Performed By: #### L 300.4310, L300.3900, BTS, L100.0100, L500.2500 ####[facility] [address] [place], [address] Monocytes/100 WBC (Bld) 3.8 % Normal 0-[address] [facility] Comment on above: Performed By: #### L 300.4310, L300.3900, BTS, L100.0100, L500.2500 ####[facility] [address] [place], [address] Neutrophils/100 WBC (Bld) 92.1 % High 47-70 [facility] Comment on above: Performed By: #### L 300.4310, L300.3900, BTS, L100.0100, L500.2500 ####[facility] [address] [place], [address] Nucleated RBC (Bld) [#/Vol] 0 10*3/uL Normal 0-5 [facility] Comment on above: Performed By: #### L 300.4310, L300.3900, BTS, L100.0100, L500.2500 ####[facility] [address] [place], [address] Platelet mean volume (Bld) [Entitic vol] 10.3 fL Normal 6.2-12.0 [facility] Comment on above: Performed By: #### L 300.4310, L300.3900, BTS, L100.0100, L500.2500 ####[facility] [address] [place], [address] Platelets (Bld) [#/Vol] 239 10*3/uL Normal 150-450 [facility] Comment on above: Performed By: #### L 300.4310, L300.3900, BTS, L100.0100, L500.2500 ####[facility] [address] [place], [address] RBC (Bld) [#/Vol] 4.28 10*6/uL Normal 4.2-5.4 [facility] Comment on above: Performed By: #### L 300.4310, L300.3900, BTS, L100.0100, L500.2500 ####[facility] [address] [place], [address] RDW SD 40.5 fl Normal 35.1-43.9 [facility] Comment on above: Performed By: #### L 300.4310, L300.3900, BTS, L100.0100, L500.2500 ####[facility] [address] [place], [address] WBC (Bld) [#/Vol] 18.8 10*3/uL High 4.4-11.0 [facility] Comment on above: Performed By: #### L 300.4310, L300.3900, BTS, L100.0100, L500.2500 ####[facility] [address] [place], [address] Carbon dioxide, total [Moles /volume] in Central venous bloodOrdered By: Guerrero Valerio on 03-01-2025 CO2 [Moles/Vol] 25.2 mmol/L 21.0-32.0 [facility] Chest 1 View (Portable)on Chest 1 View (Portable) [facility] Imaging Services [address] [place] [address] Chest 1 View (Portable) MR#: [id number] Acct: [id number] Name: MICHAELA BRANDT Rep #: [id number] : 1940 F 84 From: Janet Salas nd, MD PCP: Dr. Dillan Santiago MD Status: ADM IN Study: Chest 1 View (Portable) Date of Exam: 03/01/25 Exam# [id number] Ordering Dr: Roro Long DO PROCEDURE: CHEST [...] IMPRESSION: Emphysema/fibrosis. No acute findings. Reading Location: [id number] CC: Dr. Dillan Santiago MD; Dr. Roro Long DO Compensation Agent: Signed Normal [facility] Chloride assayOrdered By: Christophe Valerio on 03-01-2025 Chloride [Moles/Vol] 104 mmol/L 98-108 [facility] Comprehensive Metabolic Prof ilon 03-01-2025 ALB Normal 3.4-4.8 [facility] Comment on above: Result Comment: PER KAMLA IN MS3 WANTS TO CANCEL CMP. PT WILL HAVE MORNING LABS THEN. Performed By: #### L 500.4050 ####[facility] [address] [place] [id number] ALK PHOS Normal 35-104 [facility] Comment on above: Result Comment: PER KAMLA IN MS3 WANTS TO CANCEL CMP. PT WILL HAVE MORNING LABS THEN. Performed By: #### L 500.4050 ####[facility] [address] [place] [id number] ALT Normal <=34 [facility] Comment on above: Result Comment: PER KAMLA IN MS3 WANTS TO CANCEL CMP. PT WILL HAVE MORNING LABS THEN. Performed By: #### L 500.4050 ####[facility] [address] [facility] [address] AST Normal <=31 [facility] Comment on above: Result Comment: PER KAMLA IN MS3 WANTS TO CANCEL CMP. PT WILL HAVE MORNING LABS THEN. Performed By: #### L 500.4050 ####[facility] [address] [place], [address] BUN Normal 4-19 [facility] Comment on above: Result Comment: PER KAMLA IN MS3 WANTS TO CANCEL CMP. PT WILL HAVE MORNING LABS THEN. Performed By: #### L 500.4050 ####[facility] [address] [place], [address] BUN/CRE Normal 10-20 [facility] Comment on above: Result Comment: PER KAMLA IN MS3 WANTS TO CANCEL CMP. PT WILL HAVE MORNING LABS THEN. Performed By: #### L 500.4050 ####[facility] [address] [place], [address] Calcium Normal 7.6-11.0 [facility] Comment on above: Result Comment: PER KAMLA IN MS3 WANTS TO CANCEL CMP. PT WILL HAVE MORNING LABS THEN. Performed By: #### L 500.4050 ####[facility] [address] [place], [address] CL Normal 98-108 [facility] Comment on above: Result Comment: PER KAMLA IN MS3 WANTS TO CANCEL CMP. PT WILL HAVE MORNING LABS THEN. Performed By: #### L 500.4050 ####[facility] [address] [place], [address] CO2 Normal 21.0-32.0 [facility] Comment on above: Result Comment: PER KAMLA IN MS3 WANTS TO CANCEL CMP. PT WILL HAVE MORNING LABS THEN. Performed By: #### L 500.4050 ####[facility] [address] [place], [address] CREAT,SERUM Normal 0.70-1.20 [facility] Comment on above: Result Comment: PER KAMLA IN MS3 WANTS TO CANCEL CMP. PT WILL HAVE MORNING LABS THEN. Performed By: #### L 500.4050 ####[facility] [address] [place], [address] eGFR Normal >60 [facility] Comment on above: Result Comment: PER KAMLA IN MS3 WANTS TO CANCEL CMP. PT WILL HAVE MORNING LABS THEN. Performed By: #### L 500.4050 ####[facility] [address] [place], [address] GAP Normal 5-15 [facility] Comment on above: Result Comment: PER KAMLA IN MS3 WANTS TO CANCEL CMP. PT WILL HAVE MORNING LABS THEN. Performed By: #### L 500.4050 ####[facility] [address] [place], [address] GLU Normal 70-99 [facility] Comment on above: Result Comment: PER KAMLA IN MS3 WANTS TO CANCEL CMP. PT WILL HAVE MORNING LABS THEN. Performed By: #### L 500.4050 ####[facility] [address] [place], [address] Potassium Normal 3.3-5.1 [facility] Comment on above: Result Comment: PER KAMLA IN MS3 WANTS TO CANCEL CMP. PT WILL HAVE MORNING LABS THEN. Performed By: #### L 500.4050 ####[facility] [address] [place], [address] T BILI Normal 0.00-1.30 [facility] Comment on above: Result Comment: PER KAMLA IN MS3 WANTS TO CANCEL CMP. PT WILL HAVE MORNING LABS THEN. Performed By: #### L 500.4050 ####[facility] [address] [place], [address] T PROT Normal 5.9-8.4 [facility] Comment on above: Result Comment: PER KAMLA IN MS3 WANTS TO CANCEL CMP. PT WILL HAVE MORNING LABS THEN. Performed By: #### L 500.4050 ####[facility] [address] [place], [address] Comprehensive Metabolic Profil Normal 133-145 [facility] Comment on above: Result Comment: JOSELIN CASON IN MS3 WANTS TO CANCEL CMP. PT WILL HAVE MORNING LABS THEN. Performed By: #### L 500.4050 ####[facility] [address] [place], [address] Emergency Department Summary on 03-01-2025 Emergency Department Summary [facility] Medical Records Department [address] [place] [address] Emergency Department Summary 03/01/25 MR#: [id number] Acct: [id number] Name: MICHAELA BRANDT Rep #: [id number] : 1940 84 From: Guerrero Valerio DO PCP: Dr. Dillan Santiago MD Status:ADM IN Location: MS3 [id number] HPI HPI - Fall History of Present [...] not. That was apparently in 2014 in [facility]. Patient reportedly just moved to the area. She denies any other injuries. She states that she cannot really move the knee. Patient is very tearful upset about bothering her children and over her late . There is a report of the degree of dementia that is reported to me. [facility] Medical History (Updated 03/01/25 @ 13:[address] Roro Long DO) Hypothyroidism Anxiety Dementia Self-catheterizes urinary bladder [...] Medical d (more content not included)... Normal [facility] Eosinophil percentageOrdered By: Guerrero Valerio on 03-01-2025 Eosinophils/100 WBC (Bld) 0.0 % 0-5 [facility] Erythrocyte distribution wid th (RBC) [Ratio]Ordered By: Guerrero Valerio on 03-01-2025 Erythrocyte distribution width (RBC) [Entitic vol] 40.5 fL 35.1-43.9 [facility] Erythrocyte distribution wid th ratioOrdered By: Guerrero Valerio on 03-01-2025 Erythrocyte distribution width (RBC) [Ratio] 12.9 % 11.6-14.6 [facility] Estimation of creatinine winston aranceOrdered By: Guerrero Valerio on 03-01-2025 Estimated Creatinine Clearance Calc 37.62 ml/min Low 50-250 [facility] Extremity Lower without Cont raon 03-01-2025 Extremity Lower without Contra [facility] Imaging Services [address] [place] [address] Extremity Lower without Contra MR#: [id number] Acct: [id number] Name: MICHAELA BRANDT Rep #: [id number] : 1940 F 84 From: Janet Salas nd, MD PCP: Dr. Dillan Santiago MD Status: REG ER Study: Extremity Lower without Contra Date of Exam: 0 03/01/25 Exam# [id number] Ordering Dr: Guerrero Valerio DO PROCEDURE: EXTREMITY [...] lucency and probable nutrient channel. Reading Location: [facility] CC: Dr. Dillan Santiago MD; Dr. Guerrero Valerio DO Compensation Agent: Signed Normal [facility] GFR/1.73 sq M.predicted arti g non-blacks MDRD (S/P/Bld) [Vol rate/Area]Ordered By: Guerrero Valerio on 03-01-2025 Estimated GFR (MDRD) Non-Af Amer 63 >60 [facility] Comment on above: mL/min/1.73m2 CKD-EP I Creatinine Equation (2020) H AND P Exam - Hospitaliston 03-01-2025 H&P Exam - Hospitalist [facility] Medical Records Department [address] [facility] [place] [address] H P Exam - Hospitalist 03/01/25 1345 MR#: [id number] Acct: [id number] Name: MICHAELA BRANDT Rep #: [id number] : 1940 84 From: Roro Long DO PCP: Dr. Dillan Santiago MD Status:ADM IN Location: [facility] UI453-4 HPI - General General Date of Admission: 03/01/25 Date of Service: 03/01/25 Chief Complaint: L hip pain after mechanical fall HPI Narrative MICHAELA BRANDT, is a 84 F who presented to the emergency department at [facility] on 03/01/2025 with a chief complaint of [...] admitted with an expected 2 midnight stay. [facility] Medical History Hypothyroidism Anxiety Dementia Self-catheterizes [...] swelling; Denies (more content not included)... Normal [facility] HIP, UNI W/ Pelvis 2-3 Views on 03-01-2025 HIP, UNI W/ Pelvis 2-3 Views [facility] Imaging Services [address] [place], [place] [address] HIP, UNI W/ Pelvis 2-3 Views MR#: [id number] Acct: [id number] Name: MICHAELA BRANDT Rep #: [id number] : 1940 F 84 From: aJnet Salas nd, MD PCP: Dr. Dillan Santiago MD Status: REG ER Study: HIP, UNI W/ Pelvis 2-3 Views Date of Exam: Exam# [id number] Ordering Dr: Guerrero Valerio DO PROCEDURE: HIP, [...] fracture of the left femur. Reading Location: [facility] CC: Dr. Dillan Santiago MD; Dr. Guerrero Valerio DO Compensation Agent: Signed Normal [facility] Hematocrit Auto (Bld) [Volum e fraction]Ordered By: Guerrero Valerio on 03-01-2025 Hematocrit (Bld) [Volume fraction] 37.3 % 37-47 [facility] Hemoglobin measurementOrdere d By: Guerrero Valerio on 03-01-2025 Hemoglobin (Bld) [Mass/Vol] 13.0 g/dL 12.0-15.0 [facility] Immature granulocytes/100 WB C Auto (Bld)Ordered By: Guerrero Valerio on 03-01-2025 Immature granulocytes/100 WBC (Bld) 0.600 % 0.0-0.9 [facility] Comment on above: IG% - Immature Granu locytes (promyelocytes, myelocytes and metamyelocytes) > 1% indicates that a LEFT SHIFT is Present. International normalized rat io (INR) calculationOrdered By: Guerrero Valerio on 03-01-2025 INR Coag (Bld) [Relative time] 1.1 {INR} [facility] Knee 1 or 2 Viewson 03-01-20 Knee 1 or 2 Views [facility] Imaging Services [address] [place] [address] Knee 1 or 2 Views MR#: [id number] Acct: [id number] Name: MICHAELA BRANDT Rep #: [id number] : 1940 F 84 From: Janet Salas nd, MD PCP: Dr. Dillan Santiago MD Status: REG ER Study: Knee 1 or 2 Views Date of Exam: 03/01/25 Exam# [id number] Ordering Dr: Guerrero Valerio DO ADDENDUM by Dr. Janet Rabago MD on 03/01/25 at 1310 No acute osseous fracture seen on same day CT of the left knee. The previously visualized osseous fragment along the distal lateral left femoral condyle is secondary to diffuse bone lucency and probable nutrient channel. Reading Location: [id number] 03/01/25 1311 Date cc: Dr. Dillan Santiago [...] the left lateral femoral condyle. Reading Location: [facility] CC: Dr. Dillan Santiago MD; Dr. Guerrero Valerio DO Compensation Agent: Signed Normal [facility] Lymphocytes Auto (Unsp spec) [#/Vol]Ordered By: Guerrero Valerio on 03-01-2025 Lymphocytes (Bld) [#/Vol] 0.63 10*3/uL Low 0.83-4.51 [facility] Lymphocytes/100 WBC Auto (Un sp spec)Ordered By: Guerrero Valerio on 03-01-2025 Lymphocytes/100 WBC (Bld) 3.3 % Low 19-41 [facility] MCV (mean corpuscular volume ) determinationOrdered By: Guerrero Valerio on 03-01-2025 MCV (RBC) [Entitic vol] 87.1 fL 81-[address] [facility] Mean corpuscular hemoglobin (MCH) determinationOrdered By: Guerrero Valerio on 03-01-2025 MCH (RBC) [Entitic mass] 30.4 pg 27.0-32.0 [facility] Mean corpuscular hemoglobin concentration (MCHC) determinationOrdered By: Guerrero Valerio on 03-01-2025 MCHC (RBC) [Mass/Vol] 34.9 g/dL 32-36 [facility] Mean platelet volume determi nationOrdered By: Guerrero Valerio on 03-01-2025 Platelet mean volume (Bld) [Entitic vol] 10.3 fL 6.2-12.0 [facility] Monocyte percentageOrdered B y: Guerrero Valerio on 03-01-2025 Monocytes/100 WBC (Bld) 3.8 % 0-[address] [facility] Neutrophil percentageOrdered By: Guerrero Valerio on 03-01-2025 Neutrophils/100 WBC (Bld) 92.1 % High 47-70 [facility] Nucleated red blood cell per centageOrdered By: Guerrero Valerio on 03-01-2025 Nucleated RBC/100 WBC (Bld) [Ratio] 0 % 0-5 [facility] Partial Thromboplast Timeon 03-01-2025 aPTT Coag (Bld) [Time] 25.8 s Normal 24.1-36.2 [facility] Comment on above: Performed By: #### L 300.4310, L300.3900, BTS, L100.0100, L500.2500 ####[facility] [address] [place], [address] Platelet countOrdered By: Christophe Valerio on 03-01-2025 Platelets (Bld) [#/Vol] 239 10*3/uL 150-450 [facility] Potassium (Unsp spec) [Mass/ Vol]Ordered By: Guerrero Valerio on 03-01-2025 Potassium [Moles/Vol] 4.2 mmol/L 3.3-5.1 [facility] Prothrombin Time w/INRon INR Coag (PPP) [Relative time] 1.1 {INR} Normal [facility] Comment on above: Performed By: #### L 300.4310, L300.3900, BTS, L100.0100, L500.2500 ####[facility] [address] [place], [address] PT Coag (PPP) [Time] 14.9 s Normal 11.7-14.9 [facility] Comment on above: Performed By: #### L 300.4310, L300.3900, BTS, L100.0100, L500.2500 ####[facility] [address] [place], [address] Prothrombin timeOrdered By: Guerrero Valerio on 03-01-2025 PT Coag (PPP) [Time] 14.9 s 11.7-14.9 [facility] RBC Auto (Bld) [#/Vol]Ordere d By: Guerrero Valerio on 03-01-2025 RBC (Bld) [#/Vol] 4.28 10*6/uL 4.2-5.4 [facility] Serum creatinine measurement (mass/volume)Ordered By: Guerrero Valerio on 03-01-2025 Creatinine [Mass/Vol] 0.90 mg/dL 0.70-1.20 [facility] Serum glucose measurement (m ass/volume)Ordered By: Guerrero Valerio on 03-01-2025 Glucose [Mass/Vol] 148 mg/dL High 70-[address] [facility] Serum or plasma calcium thomas urement (mass/volume)Ordered By: Guerrero Valerio on 03-01-2025 Calcium [Mass/Vol] 9.2 mg/dL 7.6-11.[address] [facility] Serum or plasma urea nitroge n measurement (mass/volume)Ordered By: Guerrero Valerio on 03-01-2025 Urea nitrogen [Mass/Vol] 16 mg/dL 4-19 [facility] Sodium levelOrdered By: Liborio Valerio on 03-01-2025 Sodium [Moles/Vol] 140 mmol/L 133-[address] [facility] Type AND Screenon 03-01-2025 Ab SCREEN GEL Negative Normal [facility] Comment on above: Order Comment: S Performed By: #### L 300.4310, L300.3900, BTS, L100.0100, L500.2500 ####[facility] [address] [place], [address] Vitamin D, 25-hydroxyOrdered By: Roro Long on 03-01-2025 Vitamin D 25-Hydroxy 29.9 ng/mL Low 30-100 [facility] Comment on above: Vitamin D StatusDefi ciency: <20 ng/mL (50nmol/L)Insufficiency: 20-30 ng/mL (50-75 nmol/L)Sufficiency: 30-100 ng/mL (75-250 nmol/L)Toxicity: >100 ng/mL (>250 nmol/L) Vitamin D,25 Hydroxyon 03-01 Vitamin D 25-OH 29.9 ng/mL Low 30-100 [facility] Comment on above: Result Comment: Vaishnavi min D Status Deficiency: <20 ng/mL (50nmol/L) Insufficiency: 20-30 ng/mL (50-75 nmol/L) Sufficiency: 30-100 ng/mL (75-250 nmol/L) Toxicity: >100 ng/mL (>250 nmol/L) Performed By: #### L 506.1001 ####[facility] [address] [place], [address] White blood cell (WBC) count Ordered By: Guerrero Valerio on 03-01-2025 WBC (Bld) [#/Vol] 18.8 10*3/uL High 4.4-11.0 [facility] aPTT Coag (PPP) [Time]Ordere d By: Guerrero Valerio on 03-01-2025 aPTT Coag (Bld) [Time] 25.8 s 24.1-36.2 [facility] CNPNon 02-27-2025 CNPN Telephone (MOODY) MICHAELA BRANDT ([id number]) 1940 F Date Time Provider Department 02/27/25 [...] that her mother is currently living on [address] Stahl is concerned about mother living by herself. There are cameras set up in apt to keep watch on patient in case of falls. Discussed different social service agencies and services they offer ie. [facility] and [facility]. Thomas provided patient daughter with [facility]ala [facility] phone number for help with looking at memory care options in the area. Sw and daughter also discussed different local memory care options ie. [place], [place], [facility], [facility]. Maribeth notes that her mom was not interested in any place that looks like a care home. Discussed the different options above and layout and levels of care they offer. Maribeth notes that she is going to give Yuko a call from 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 LABCLIA [id number] [address] [place] CNOVon 02-19-2025 CNOV Office Visit (UCWSTR ) MICHAELA BRANDT ([id number]) 1940 F Date Time Provider Department 02/19/25 11:30 AM [facility] During your visit today, we recorded the following information about you: Temperature Pulse Respiration Blood pressure 98.7 degrees 70/minute 22/minute 145/79 Weight 57 kg Walt Robles APRN.POSTAL INSPECTOR 02/19/2025 12:00 PM Signed [facility] Subjective Michaela Brandt is [...] history is provided by the patient. No parts interpreter was used. Review of Systems Constitutional: Negative. [...] be changed please change accordingly. Walt Robles APRN.POSTAL INSPECTOR MDM Procedures Allergies As of Date: 02/19/2025 (No Known Allergies) Date Reviewed: 02/19/2025 Reviewed by: Carolina Hastings LPN - Fully Assessed Reason for Visit: Urinary Problem [252] Cmt: Brain fog, 1 day Primary Visit Diagnosis:Recurrent UTI (urinary tract infection) [N39.0] Order(s):UA DIP, URINE (POC) [2488777] Order #: [id number]. #:[id number] cephALEXin (KEFLEX) 500 mg capsuleTake 1 capsule [...] 0.5 mg (more content not included)... [facility] MICHAELA BRANDT ([id number]) 1940 F Date Time Provider Department 02/19/25 [facility] During your visit today, we recorded the following information about you: Walt Robles APRN.POSTAL INSPECTOR 02/19/2025 3:04 PM Signed Please call patient [...] [R35.0] Order(s):BACTERIAL CULTURE, URINE [SQURCUL] Order #: [id number] Prescriptions as of 02/19/2025 - cephALEXin (KEFLEX) [...] Status:Closed by COLTEN GREER on 02/19/25 Normal [facility] UA DIP, URINE (POC)on 2024 BILIRUBIN UA (POCT) Negative Negative [facility] CLARITY UA (POCT) Clear [facility] COLOR UA (POCT) Dark yellow [facility] GLUCOSE UA (POCT) Negative Negative mg/dL [facility] Hemoglobin Ql (U) Trace-intact Abnormal Negative [facility] Interpretation and review of laboratory results Abnormal [facility] KETONE UA (POCT) Negative Negative mg/dL [facility] LEUKOCYTES UA (POCT) Trace Abnormal Negative [facility] NITRITE UA (POCT) Positive Abnormal Negative [facility] PH UA (POCT) 5.5 4.5 - 8.0 [facility] Protein Ql (U) Negative Negative mg/dL [facility] SPECIFIC GRAVITY UA (POCT) 1.025 1.005 - 1.030 [facility] UROBILINOGEN UA (POCT) 1 Supriya l E.U./dL [facility] Location:[address], [place], [place], [address] [place] [address] POINT OF CARE [facility] CNOVon 02-18-2025 CNOV Office Visit (INTMWS ) MICHAELA BRANDT ([id number]) 1940 F Date Time Provider Department 02/18/25 10:20 AM MARIPOSA SALNIAS INTMAKOSUA During your visit today, we recorded the following information about you: Pulse Respiration Blood pressure Weight 74/minute 16/minute 122/80 57.6 kg Mariposa Salians APRN.[facility] 02/18/2025 4:19 PM Signed CC: Patient presents [...] Patient agreeable to treatment plan. Mariposa Salinas APRN.POSTAL INSPECTOR Medical Decision Making: Problems: Minimal: Self-limited or [...] of rig (more content not included)... Normal [facility] TSH SerPl-aCncon 02-17-2025 TSH Qn 1.190 m[IU]/L Normal 0.270-4.200 [facility] Comment on above: Order Comment: Speci men Type: BLOOD SPECIMENOrdering Facility: [facility] Address: [address] [place] [address] Performed By: #### 3 016-3 ####[facility] LABCLIA [id number] [address] OF [facility] CNOVmary 02-04-2025 CNOV Office Visit (JOHNSONR ) MICHAELA BRANDT ([id number]) 1940 F Date Time Provider Department 02/04/25 [...] NECK: Suppl (more content not included)... Normal [facility] MR Brain WO contraston 03-08 -2025 * * *Final Report* * * DATE OF EXAM: Jan 24 2025 2:05PM [facility] 3015 - MRI BRAIN W QUANT WO IVCON / PROCEDURE REASON: Cognitive impairment, mild, so stated * * * * Physician Interpretation * * * * EXAMINATION: MRI 3D BRAIN QUANT, MRI BRAIN W QUANT WO IVCON CLINICAL HISTORY: TECHNIQUE: Axial ISREAL FLAIR, ISREAL T2, diffusion and susceptibility weighted imaging without contrast, using the ADNI dementia protocol and 3-D post-processing using the [employer] software at an independent workstation with concurrent [...] to 1.7; Will 2008; also Balbir 2010). [facility] RADIOLOGY Provider, [facility] - 01/24/2025 * * *Final Report* * * DATE OF EXAM: Jan 24 2025 2:05PM [facility] 3015 - MRI BRAIN W QUANT WO IVCON / PROCEDURE REASON: Cognitive impairment, mild, so stated * * * * Physician Interpretation * * * * EXAMINATION: MRI 3D BRAIN QUANT, MRI BRAIN W QUANT WO IVCON CLINICAL HISTORY: TECHNIQUE: Axial ISREAL FLAIR, ISREAL T2, diffusion and susceptibility weighted imaging without contrast, using the ADNI dementia protocol and 3-D post-processing using the [employer] software at an independent workstation with concurrent [...] = Focal Lesions 2 = Beginning of [place] 3 = Diffuse Involvement of Entire Region [...] 100] (%). Age-matched (more content not included)... [facility] MR Unspecified body region 3 D post processingon 01-24-2025 * * *Final Report* * * DATE OF EXAM: Jan 24 2025 2:05PM [facility] 7867 - MRI 3D BRAIN QUANT / PROCEDURE REASON: Cognitive impairment, mild, so stated * * * * Physician Interpretation * * * * EXAMINATION: MRI 3D BRAIN QUANT, MRI BRAIN W QUANT WO IVCON CLINICAL HISTORY: TECHNIQUE: Axial ISREAL FLAIR, ISREAL T2, diffusion and susceptibility weighted imaging without contrast, using the ADNI dementia protocol and 3-D post-processing using the [employer] software at an independent workstation with concurrent [...] to 1.7; Will 2008; also Balbir 2010). [facility] RADIOLOGY Provider, [facility] - 01/24/2025 * * *Final Report* * * DATE OF EXAM: Jan 24 2025 2:05PM [facility] 7867 - MRI 3D BRAIN QUANT / [...] = Focal Lesions 2 = Beginning of [place] 3 = Diffuse Involvement of Entire Region [...] (%). Age-matched referenc (more content not included)... [facility] MRI 3D BRAIN QUANTon 025 MRI 3D BRAIN QUANT * * *Final Report* * * DATE OF EXAM: Jan 24 2025 2:05PM [facility] 7867 - MRI 3D BRAIN QUANT / PROCEDURE REASON: Cognitive impairment, mild, so stated * * * * Physician Interpretation * * * * EXAMINATION: MRI 3D BRAIN QUANT, MRI BRAIN W QUANT WO IVCON CLINICAL HISTORY: TECHNIQUE: Axial ISREAL FLAIR, ISREAL T2, diffusion and susceptibility weighted imaging without contrast, using the ADNI dementia protocol and 3-D post-processing using the [employer] software at an independent workstation with concurrent [...] = Focal Lesions 2 = Beginning of [place] 3 = Diffuse Involvement of Entire Region [...] results from the analysis charts for details. Compensation Agent: MINDY Transcribe Date/Time: Jan 24 (more content not included)... [facility] MRI BRAIN W QUANT WO IVCONon 01-24-2025 MRI BRAIN W QUANT WO IVCON * * *Final Report* * * DATE OF EXAM: Jan 24 2025 2:05PM [facility] 3015 - MRI BRAIN W QUANT WO IVCON / PROCEDURE REASON: Cognitive impairment, mild, so stated * * * * Physician Interpretation * * * * EXAMINATION: MRI 3D BRAIN QUANT, MRI BRAIN W QUANT WO IVCON CLINICAL HISTORY: TECHNIQUE: Axial ISREAL FLAIR, ISREAL T2, diffusion and susceptibility weighted imaging without contrast, using the ADNI dementia protocol and 3-D post-processing using the [employer] software at an independent workstation with concurrent [...] = Focal Lesions 2 = Beginning of [place] 3 = Diffuse Involvement of Entire Region [...] results from the analysis charts for details. Compensation Agent: PSCB Transcribe Date/Time (more content not included)... Normal [facility] No Panel Informationon 01-24 IMPRESSION: * No [...] = Focal Lesions 2 = Beginning of [place] 3 = Diffuse Involvement of Entire Region [...] results from the analysis charts for details. Compensation Agent: MINDY Transcribe Date/Time: Jan 24 2025 2:14P Dictated by : PUJA KIM MD This examination was interpreted and the report reviewed and electronically signed by: PUJA KIM MD on Jan 24 2025 2:29PM [facility] RADIOLOGY Radiology Study observation (narrative) [facility] No Panel InformationOrdered By: Ccf Provider on 01-24-2025 [facility] Urine Cultureon 01-19-2025 [facility] Klebsiella pneumonia e sp pneum [place] Count >100,000 Klebsiella pneumoniae sp pneum: REACTION [...] TMP SMX Islt [place] <=20 S Normal [facility] Comment on above: Performed By: #### M 100.2200 ####[facility] [address] [place], [address] Absolute lymphocyte countOrd ered By: Dominik Galvan on 01-17-2025 Lymphocytes Auto (Unsp spec) [#/Vol] 1.42 10*3/uL 0.83-4.51 [facility] Absolute neutrophil countOrd ered By: Dominik Galvan on 01-17-2025 Neutrophils (Bld) [#/Vol] 10.3 10*3/uL High 2.0-7.7 [facility] Amorphous sediment detection in urine sediment by light microscopyOrdered By: Dominik Galvan on 01-17-2025 Amorphous sediment LM Ql (Urine sed) 1+ URATE [facility] Automated lymphocyte count a s percentage of total leukocytesOrdered By: Dominik Galvan on 01-17-2025 Lymphocytes/100 WBC Auto (Unsp spec) 11.0 % Low 19-41 [facility] BUN/creatinine ratioOrdered By: Dominik Galvan on 01-17-2025 Urea nitrogen/Creatinine [Mass ratio] 20.5 mg/mg High 10-20 [facility] Basophil percentageOrdered B y: Dominik Galvan on 01-17-2025 Basophils/100 WBC (Bld) 0.4 % 0-[address] [facility] Bilirubin Test strip Ql (U)O rdered By: Dominik Galvan on 01-17-2025 Bilirubin Ql (U) Negative Negative [facility] Bilirubin, totalOrdered By: Dominik Galvan on 01-17-2025 Bilirubin [Mass/Vol] 1.24 mg/dL 0.00-1.30 [facility] Brain/Head without Contrasto n 01-17-2025 Brain/Head without Contrast [facility] Imaging Services [address] [place] [address] Brain/Head without Contrast MR#: [id number] Acct: [id number] Name: michaela brandt Rep #: [id number] : 1940 F 84 From: Dominik Thornton MD PCP: NOT,DEFINED Status: PRE ER Study: Brain/Head without Contrast Date of Exam: 12/13 Exam# [id number] Ordering Dr: Dominik Galvan FARMER DIVERSIFIED CROPS-C EXAM: BRAIN/HEAD WITHOUT CONTRAST CLINICAL HISTORY: Confusion [...] remote small vessel ischemic changes Reading Location: [facility] CC: ANA Galvan; DEFINED NOT Compensation Agent: Signed Normal [facility] CBC W/Diff, Automatedon 03-0 Absolute Lymph 1.42 X10 3/uL Normal 0.83-4.51 [facility] Comment on above: Performed By: #### L 100.0100, L500.4050 ####[facility] [address] [place], [address] Absolute Neut 10.3 X10 3/uL High 2.0-7.7 [facility] Comment on above: Performed By: #### L 100.0100, L500.4050 ####[facility] [address] [place], [address] Basophils/100 WBC (Bld) 0.4 % Normal 0-[address] [facility] Comment on above: Performed By: #### L 100.0100, L500.4050 ####[facility] [address] [place], [address] Eosinophils/100 WBC (Bld) 1.0 % Normal 0-5 [facility] Comment on above: Performed By: #### L 100.0100, L500.4050 ####[facility] [address] [place], [address] Erythrocyte distribution width (RBC) [Ratio] 13.3 % Normal 11.6-14.6 [facility] Comment on above: Performed By: #### L 100.0100, L500.4050 ####[facility] [address] [place], [address] Hematocrit (Bld) [Volume fraction] 35.9 % Low 37-47 [facility] Comment on above: Performed By: #### L 100.0100, L500.4050 ####[facility] [address] [place], [address] Hemoglobin (Bld) [Mass/Vol] 12.3 g/dL Normal 12.0-15.0 [facility] Comment on above: Performed By: #### L 100.0100, L500.4050 ####[facility] [address] [place], [address] IG% 0.400 Normal 0.0-0.9 [facility] Comment on above: Result Comment: IG% - Immature Granulocytes (promyelocytes, myelocytes and metamyelocytes) > 1% indicates that a LEFT SHIFT is Present. Performed By: #### L 100.0100, L500.4050 ####[facility] [address] [place], [address] Lymphocytes/100 WBC (Bld) 11.0 % Low 19-41 [facility] Comment on above: Performed By: #### L 100.0100, L500.4050 ####[facility] [address] [place], [address] MCH (RBC) [Entitic mass] 29.9 pg Normal 27.0-32.0 [facility] Comment on above: Performed By: #### L 100.0100, L500.4050 ####[facility] [address] [place], [address] MCHC (RBC) [Mass/Vol] 34.3 g/dL Normal 32-36 [facility] Comment on above: Performed By: #### L 100.0100, L500.4050 ####[facility] [address] [place], [address] MCV (RBC) [Entitic vol] 87.3 fL Normal 81-[address] [facility] Comment on above: Performed By: #### L 100.0100, L500.4050 ####[facility] [address] [place], [address] Monocytes/100 WBC (Bld) 8.1 % Normal 0-[address] [facility] Comment on above: Performed By: #### L 100.0100, L500.4050 ####[facility] [address] [place], [address] Neutrophils/100 WBC (Bld) 79.1 % High 47-70 [facility] Comment on above: Performed By: #### L 100.0100, L500.4050 ####[facility] [address] [place], [address] Nucleated RBC (Bld) [#/Vol] 0 10*3/uL Normal 0-5 [facility] Comment on above: Performed By: #### L 100.0100, L500.4050 ####[facility] [address] [place], [address] Platelet mean volume (Bld) [Entitic vol] 10.5 fL Normal 6.2-12.0 [facility] Comment on above: Performed By: #### L 100.0100, L500.4050 ####[facility] [address] [place], [address] Platelets (Bld) [#/Vol] 169 10*3/uL Normal 150-450 [facility] Comment on above: Performed By: #### L 100.0100, L500.4050 ####[facility] [address] [place], [address] RBC (Bld) [#/Vol] 4.11 10*6/uL Low 4.2-5.4 [facility] Comment on above: Performed By: #### L 100.0100, L500.4050 ####[facility] [address] [place], [address] RDW SD 42.1 fl Normal 35.1-43.9 [facility] Comment on above: Performed By: #### L 100.0100, L500.4050 ####[facility] [address] [place], [address] WBC (Bld) [#/Vol] 13.0 10*3/uL High 4.4-11.0 [facility] Comment on above: Performed By: #### L 100.0100, L500.4050 ####[facility] [address] [place], [address] Carbon dioxide measurementOr dered By: Dominik Galvan on 01-17-2025 CO2 [Moles/Vol] 25.5 mmol/L 22.0-29.0 [facility] Chloride measurementOrdered By: Dominik Galvan on 01-17-2025 Chloride [Moles/Vol] 103 mmol/L 96-108 [facility] Comprehensive Metabolic Prof ilon 01-17-2025 Albumin [Mass/Vol] 4.2 g/dL Normal 3.4-4.[address] [facility] Comment on above: Performed By: #### L 100.0100, L500.4050 ####[facility] [address] [place], [address] Albumin/Globulin [Mass ratio] 1.4 {ratio} Normal 0.9-2.4 [facility] Comment on above: Performed By: #### L 100.0100, L500.4050 ####[facility] [address] [place], [address] ALK PHOS 75 U/L Normal 35-104 [facility] Comment on above: Performed By: #### L 100.0100, L500.4050 ####[facility] [address] [place], [address] ALT [Catalytic activity/Vol] 9 U/L Normal <=34 [facility] Comment on above: Performed By: #### L 100.0100, L500.4050 ####[facility] [address] [place], [address] Anion gap [Moles/Vol] 12 mmol/L Normal 5-15 [facility] Comment on above: Performed By: #### L 100.0100, L500.4050 ####[facility] [address] [place], [address] AST [Catalytic activity/Vol] 19 U/L Normal <=31 [facility] Comment on above: Performed By: #### L 100.0100, L500.4050 ####[facility] [address] [place], [address] Bilirubin [Mass/Vol] 1.24 mg/dL Normal 0.00-1.30 [facility] Comment on above: Performed By: #### L 100.0100, L500.4050 ####[facility] [address] [place], [address] BUN/CRE 20.5 RATIO High 10-20 [facility] Comment on above: Performed By: #### L 100.0100, L500.4050 ####[facility] [address] [place], [address] Calcium [Mass/Vol] 9.7 mg/dL Normal 7.6-11.[address] [facility] Comment on above: Performed By: #### L 100.0100, L500.4050 ####[facility] [address] [place], [address] Chloride [Moles/Vol] 103 mmol/L Normal 96-108 [facility] Comment on above: Performed By: #### L 100.0100, L500.4050 ####[facility] [address] [place], [address] CO2 [Moles/Vol] 25.5 mmol/L Normal 22.0-29.0 [facility] Comment on above: Performed By: #### L 100.0100, L500.4050 ####[facility] [address] [place], [address] Creatinine [Mass/Vol] 0.92 mg/dL Normal 0.70-1.20 [facility] Comment on above: Performed By: #### L 100.0100, L500.4050 ####[facility] [address] [place], [address] GFR/1.73 sq M.predicted among non-blacks MDRD (S/P/Bld) [Vol rate/Area] 61 mL/min/{1.73_m2} Normal >60 [facility] Comment on above: Result Comment: mL/m in/1.73m2 CKD-EPI Creatinine Equation (2020) Performed By: #### L 100.0100, L500.4050 ####[facility] [address] [place], [address] Globulin (S) [Mass/Vol] 3.0 g/dL Normal 2.2-4.2 [facility] Comment on above: Performed By: #### L 100.0100, L500.4050 ####[facility] [address] [place], [address] Glucose [Mass/Vol] 113 mg/dL High 70-[address] [facility] Comment on above: Performed By: #### L 100.0100, L500.4050 ####[facility] [address] [place], [address] Potassium [Moles/Vol] 3.9 mmol/L Normal 3.3-5.1 [facility] Comment on above: Performed By: #### L 100.0100, L500.4050 ####[facility] [address] [place], [address] Sodium [Moles/Vol] 140 mmol/L Normal 133-[address] [facility] Comment on above: Performed By: #### L 100.0100, L500.4050 ####[facility] [address] [place], [address] T PROT 7.2 g/dL Normal 5.9-8.4 [facility] Comment on above: Performed By: #### L 100.0100, L500.4050 ####[facility] [address] [place], [address] Urea nitrogen [Mass/Vol] 19 mg/dL Normal 4-19 [facility] Comment on above: Performed By: #### L 100.0100, L500.4050 ####[facility] [address] [place], [address] Emergency Department Summary on 01-17-2025 Emergency Department Summary [facility] Medical Records Department [address] [place] [address] Emergency Department Summary 01/17/25 MR#: [id number] Acct: [id number] Name: MICHAELA BRANDT Rep #: [id number] : 1940 84 From: Dominik PEREZ PCP: [...] any fever chills nausea or vomiting. [facility] Medical History (Updated 01/17/25 @ 19:37 by ANA Chang) Self-catheterizes urinary bladder Hypertension Back pain Home [...] 79.1 H Lymph % (Auto) 11.0 L [place] % (Auto) 8.1 Eos % (Auto) 1.0 Baso % (Auto) 0.4 Absolute Neuts (auto) 10.3 H Absolute Lymphs (auto) 1.42 Nucleated RBC % 0 Sodium 140 Potassium 3.9 Chloride Direct 103 Carbon Dioxide 25.5 Anion Gap 12 BUN 19 Creatinine 0.92 Est GFR (MDRD) Non-Af 61 BUN/Creatinine Ratio 20.5 H Glucose 113 H Calcium 9.7 Total Bilirubin 1.24 (more content not included)... Normal [facility] Eosinophil percentageOrdered By: Dominik Galvan on 01-17-2025 Eosinophils/100 WBC (Bld) 1.0 % 0-5 [facility] Epithelial cells.squamous LM Ql (Urine sed)Ordered By: Dominik Galvan on 01-17-2025 Epithelial cells.squamous LM.HPF (Urine sed) [#/Area] 0 /[HPF] 5-10 [facility] Erythrocyte distribution wid th (RBC) [Ratio]Ordered By: Dominik Galvan on 01-17-2025 Erythrocyte distribution width (RBC) [Entitic vol] 42.1 fL 35.1-43.9 [facility] Erythrocyte distribution wid th ratioOrdered By: Dominik Galvan on 01-17-2025 Erythrocyte distribution width (RBC) [Ratio] 13.3 % 11.6-14.6 [facility] Erythrocyte distribution wid th standard deviationOrdered By: Dominik Galvan on 01-17-2025 Erythrocyte distribution width (RBC) [Ratio] 42.1 fl 35.1-43.9 [facility] GFR/1.73 sq M.predicted arti g non-blacks MDRD (S/P/Bld) [Vol rate/Area]Ordered By: Dominik Galvan on 01-17-2025 Estimated GFR (MDRD) Non-Af Amer 61 >60 [facility] Comment on above: mL/min/1.73m2 CKD-EP I Creatinine Equation (2020) Glomerular filtration rate ( GFR) estimation/1.73 sq m using serum, plasma, or whole bOrdered By: Dominik Galvan on 01-17-2025 GFR/1.73 sq M.predicted among non-blacks MDRD (S/P/Bld) [Vol rate/Area] 61 mL/min/{1.73_m2} >60 [facility] Comment on above: mL/min/1.73m2 CKD-EP I Creatinine Equation (2020) Glucose Ql (U)Ordered By: Lacy Galvan on 01-17-2025 Urine Glucose (UA) Normal mg/dl Normal [facility] Hematocrit Auto (Bld) [Volum e fraction]Ordered By: Dominik Galvan on 01-17-2025 Hematocrit (Bld) [Volume fraction] 35.9 % Low 37-47 [facility] Hemoglobin measurementOrdere d By: Dominki Galvan on 01-17-2025 Hemoglobin (Bld) [Mass/Vol] 12.3 g/dL 12.0-15.0 [facility] Immature granulocytes/100 WB C Auto (Bld)Ordered By: Dominik Galvan on 01-17-2025 Immature granulocytes/100 WBC (Bld) 0.400 % 0.0-0.9 [facility] Comment on above: IG% - Immature Granu locytes (promyelocytes, myelocytes and metamyelocytes) > 1% indicates that a LEFT SHIFT is Present. Influenza virus A and B and SARS-CoV-2 (COVID-19) and Respiratory syncytial virus RNAOrdered By: Dominik Galvan on 01-17-2025 SARS-CoV-2 (COVID-19) RNA DANIEL+probe Ql (Unsp spec) [facility] Ketones Test strip Ql (U)Ord ered By: Dominik Galvan on 01-17-2025 Ketones Ql (U) Negative Negative [facility] Laboratory - Chemistry and C hemistry - challengeOrdered By: Dominik Galvan on 01-17-2025 AST [Catalytic activity/Vol] 19 U/L <32 [facility] Lymphocytes Auto (Unsp spec) [#/Vol]Ordered By: Dominik Galvan on 01-17-2025 Lymphocytes (Bld) [#/Vol] 1.42 10*3/uL 0.83-4.51 [facility] Lymphocytes/100 WBC Auto (Un sp spec)Ordered By: Dominik Galvan on 01-17-2025 Lymphocytes/100 WBC (Bld) 11.0 % Low 19-41 [facility] M100.678on 01-17-2025 M100.678 Pending SARS-CoV-2 (COVID 19) Negative INFLUENZA A Negative INFLUENZA B Negative RSV PCR Negative Normal [facility] Comment on above: Performed By: #### M 100.678, L400.0001 ####[facility] [address] [facility] [place], [address] MCV (mean corpuscular volume ) determinationOrdered By: Dominik Galvan on 01-17-2025 MCV (RBC) [Entitic vol] 87.3 fL 81-[address] [facility] Mean corpuscular hemoglobin (MCH) determinationOrdered By: Dominik Galvan on 01-17-2025 MCH (RBC) [Entitic mass] 29.9 pg 27.0-32.0 [facility] Mean corpuscular hemoglobin concentration (MCHC) determinationOrdered By: Dominik Galvan on 01-17-2025 MCHC (RBC) [Mass/Vol] 34.3 g/dL 32-36 [facility] Mean platelet volume determi nationOrdered By: Dominik Galvan on 01-17-2025 Platelet mean volume (Bld) [Entitic vol] 10.5 fL 6.2-12.0 [facility] Microscopic analysis of urin e for red blood cells (RBC)Ordered By: Dominik Galvan on 01-17-2025 Microscopic analysis of urine for red blood cells (RBC) 0-5 SEEN /hpf 0-5 [facility] Urine RBC 0-5 SEEN /hpf 0-5 [facility] Monocyte percentageOrdered B y: Dominik Galvan on 01-17-2025 Monocytes/100 WBC (Bld) 8.1 % 0-[address] [facility] Mucus LM Ql (Urine sed)Order ed By: Dominik Galvan on 01-17-2025 Mucus Ql (Urine sed) 0 SEEN /hpf [facility] Neutrophil percentageOrdered By: Dominik Galvan on 01-17-2025 Neutrophils/100 WBC (Bld) 79.1 % High 47-70 [facility] Nitrite Test strip Ql (U)Ord ered By: Dominik Galvan on 01-17-2025 Nitrite Ql (U) Positive High Negative [facility] Nucleated red blood cell per centageOrdered By: Dominik Galvan on 01-17-2025 Nucleated RBC/100 WBC (Bld) [Ratio] 0 % 0-5 [facility] Platelet countOrdered By: Lacy Galvan on 01-17-2025 Platelets (Bld) [#/Vol] 169 10*3/uL 150-450 [facility] Protein Test strip Ql (U)Ord ered By: Dominik Galvan on 01-17-2025 Protein Ql (U) Negative Negative [facility] RBC Auto (Bld) [#/Vol]Ordere d By: Dominik Galvan on 01-17-2025 RBC (Bld) [#/Vol] 4.11 10*6/uL Low 4.2-5.4 [facility] Serum creatinine measurement (mass/volume)Ordered By: Dominik Galvan on 01-17-2025 Creatinine [Mass/Vol] 0.92 mg/dL 0.70-1.20 [facility] Serum globulin measurementOr dered By: Dominik Galvan on 01-17-2025 Globulin (S) [Mass/Vol] 3.0 g/dL 2.2-4.[address] [facility] Serum glucose measurement (m ass/volume)Ordered By: Dominik Galvan on 01-17-2025 Glucose [Mass/Vol] 113 mg/dL High 70-[address] [facility] Serum or plasma alanine tillman otransferase (ALT) measurementOrdered By: Dominik Galvan on 01-17-2025 ALT [Catalytic activity/Vol] 9 U/L <35 [facility] Serum or plasma albumin thomas urement (mass/volume)Ordered By: Dominik Galvan on 01-17-2025 Albumin [Mass/Vol] 4.2 g/dL 3.4-4.[address] [facility] Serum or plasma albumin/glob ulin mass ratioOrdered By: Dominik Galvan on 01-17-2025 Albumin/Globulin [Mass ratio] 1.4 {ratio} 0.9-2.4 [facility] Serum or plasma alkaline mariah sphatase measurementOrdered By: Dominik Galvan on 01-17-2025 ALP [Catalytic activity/Vol] 75 U/L 35-104 [facility] Serum or plasma anion gap de termination (moles/volume)Ordered By: Dominik Galvan on 01-17-2025 Anion gap [Moles/Vol] 12 mmol/L 5-15 [facility] Serum or plasma calcium thomas urement (mass/volume)Ordered By: Dominik Galvan on 01-17-2025 Calcium [Mass/Vol] 9.7 mg/dL 7.6-11.[address] [facility] Serum or plasma potassium me asurementOrdered By: Dominik Galvan on 01-17-2025 Potassium [Moles/Vol] 3.9 mmol/L 3.3-5.1 [facility] Serum or plasma sodium measu rement (moles/volume)Ordered By: Dominik Galvan on 01-17-2025 Sodium [Moles/Vol] 140 mmol/L 133-[address] [facility] Serum or plasma urea nitroge n measurement (mass/volume)Ordered By: Dominik Galvan on 01-17-2025 Urea nitrogen [Mass/Vol] 19 mg/dL 4-19 [facility] Squamous epithelial cells de tection in urine sediment by light microscopyOrdered By: Dominik Galvan on 01-17-2025 Epithelial cells.squamous LM Ql (Urine sed) 0-5 SEEN /hpf 5- [facility] Total proteinOrdered By: Shanna Galvan on 01-17-2025 Protein [Mass/Vol] 7.2 g/dL 5.9-8.[address] [facility] Urinalysis, Completeon 01-17 AMORPHOUS 1+ URATE Normal [facility] Comment on above: Order Comment: SHAKA TER SPECIMEN Performed By: #### M 100.678, L400.0001 ####[facility] [address] [place], [address] BACTERIA 3+ /hpf Normal None Seen [facility] Comment on above: Order Comment: SHAKA TER SPECIMEN Performed By: #### M 100.678, L400.0001 ####[facility] [address] [place], [address] EPI,SQUAMOUS 0-5 SEEN Normal 5-10 [facility] Comment on above: Order Comment: SHAKA TER SPECIMEN Performed By: #### M 100.678, L400.0001 ####[facility] [address] [place], [address] RBC 0-5 SEEN Normal 0-5 [facility] Comment on above: Order Comment: SHAKA TER SPECIMEN Performed By: #### M 100.678, L400.0001 ####[facility] [address] [place], [address] WBC 0-5 SEEN Normal 0-5 [facility] Comment on above: Order Comment: SHAKA TER SPECIMEN Performed By: #### M 100.678, L400.0001 ####[facility] [address] [place], [place], [address] Mucus Ql (Urine sed) 0 SEEN Normal [facility] Comment on above: Order Comment: [facility] SPECIMEN Performed By: #### M 100.678, L400.0001 ####[facility] [address] [place], [place], [id number] Urine blood detectionOrdered By: Dominik Galvan on 01-17-2025 Urine Occult Blood 25 /ul High Negative [facility] Urine clarityOrdered By: Shanna Galvan on 01-17-2025 Clarity (U) Sl. Cloudy Clear [facility] Urine color determinationOrd ered By: Dominik Galvan on 01-17-2025 Color (U) Yellow Yellow [facility] Urine cultureOrdered By: Yodit Florence on 01-17-2025 Bacteria identified Cx Nom (U) Klebsiella pneumoniae sp pneum Abnormal [facility] Urine glucose detectionOrder ed By: Dominik Galvan on 01-17-2025 Glucose Ql (U) Normal mg/dl Normal [facility] Urine leukocyte esterase det ection by dipstickOrdered By: Dominik Galvan on 01-17-2025 Leukocyte esterase Test strip Ql (U) 25 /ul High Negative [facility] Urine pHOrdered By: Dominik oliveira on 01-17-2025 pH (U) 6.5 [pH] 5.0 - 8.0 [facility] Urine sediment bacteria coun t by microscopy (number/high power field)Ordered By: Dominik Galvan on 01-17-2025 Bacteria LM.HPF (Urine sed) [#/Area] 3 /[HPF] None Seen [facility] Urine specific gravity measu rementOrdered By: Dominik Galvan on 01-17-2025 Specific gravity (U) [Rel density] 1.015 1.002-1.030 [facility] Urine urobilinogen measureme ntOrdered By: Dominik Galvan on 01-17-2025 Urobilinogen Ql (U) 4 mg/dl High Normal [facility] Urobilinogen Ql (U)Ordered B y: Dominik Galvan on 01-17-2025 Urobilinogen (U) [Mass/Vol] 4 mg/dL High Normal [facility] White blood cell (WBC) count Ordered By: Dominik Galvan on 01-17-2025 WBC (Bld) [#/Vol] 13.0 10*3/uL High 4.4-11.0 [facility] White blood cell countOrdere d By: Dominik Galvan on 01-17-2025 Urine WBC 0-5 SEEN /hpf 0-5 [facility] White blood cell count 0-5 SEEN /hpf 0-5 [facility] CNOVon 12-23-2024 CNOV Office Visit (UROLWS ) MICHAELA BRANDT ([id number]) 1940 F Date Time Provider Department 12/23/24 10:00 AM TOM BALTAZAR During your visit today, we recorded the following information about you: Temperature Pulse Respiration Blood pressure 97.4 degrees 80/minute 12/minute 144/64 Weight 59.9 kg Tom Baltazar PA-C 12/23/2024 3:21 PM Addendum [facility] NEW PATIENT CLINIC NOTE (F) SERVICE [...] UA (POCT) Yellow CLARITY UA (POCT) Clear PRO (more content not included)... [facility] BRAND[facility] ([id number]) 1940 F Date Time Provider Department 12/23/24 TOM BALTAZAR During your visit today, we recorded the following information about you: Nusrat Palmer LPN 12/23/2024 4:46 PM Signed Faxed signed Authorization to Disclose Health Information to [facility] to office of Dr. Ovalle for urological records. RAMIREZ Valdes Kimberly, LPN 12/25/2024 12:50 PM Signed Received one lab from [facility] via [employer]. Uploaded to [employer] via [employer]. Nusrat Palmer LPN Allergies As of Date: 12/23/2024 (No Known Allergies) Date Reviewed: 12/23/2024 Reviewed by: Nursat Palmer LPN - Fully Assessed Reason for Visit: Request Outside Medical Records [[id number]] Prescriptions as of 12/25/2024 - Catheter (SELF-CATHETER, [...] Date: 12/23/2024 (None) Encounter Status:Closed by NUSRAT PALMER on 12/25/24 Normal [facility] UA DIP, URINE (POC)on 2024 BILIRUBIN UA (POCT) Negative Negative [facility] CLARITY UA (POCT) Clear [facility] COLOR UA (POCT) Yellow [facility] GLUCOSE UA (POCT) Negative Negative mg/dL [facility] Hemoglobin Ql (U) Trace-intact Abnormal Negative [facility] Interpretation and review of laboratory results Abnormal [facility] KETONE UA (POCT) Negative Negative mg/dL [facility] LEUKOCYTES UA (POCT) Trace Abnormal Negative [facility] NITRITE UA (POCT) Negative Negative [facility] PH UA (POCT) 5.0 4.5 - 8.0 [facility] Protein Ql (U) Negative Negative mg/dL [facility] SPECIFIC GRAVITY UA (POCT) >=1.030 1.005 - 1.030 [facility] UROBILINOGEN UA (POCT) 0.2 Supriya l E.U./dL [facility] Location:[facility], [address] , [place], [place], [id number] [place] [address] POINT OF CARE [facility] CNOVon 12-10-2024 CNOV Office Visit (GERIWR ) MICHAELA BRANDT ([id number]) 1940 F Date Time Provider Department 12/10/24 12:30 PM DILLAN SANTIAGO During your visit today, we recorded the following information about you: Dillan Santiago MD 12/10/2024 5:10 PM Signed [facility] Initial Consult [...] on her own. They are looking into [facility]. Have cameras installed so they [...] she knows and feels. Just moved to [place] where her daughter lives after needing to sell her 3 story home to allow her to continue to live independently. [facility] PCP [facility]. Is now in her own 1 level apartment. Needs assistance with medication dispensing and is needing support to drive her to appointments and to the store. Is hoping to go to [facility] a few times a week as well. [...] UTIs and followed with a urologist in [place]. Denies abdominal pain, fever, chills, or dark/foul [...] secure location? No Social History: Primary language: Nauruan Marital Status: Living situation: Home w/ Family Socially engaged? (participates in activities such as clubs, episcopalian, community center, sports, games, visiting friends/relatives, etc?): YES once a week she goes out. 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 NO [...] (EUTHYROX) 50 (more content not included)... [facility] Tele[facility] (GERIWR) MICHAELA BRANDT ([id number]) 1940 F Date Time Provider Department 12/10/24 DILLAN SANTIAGO During your visit today, we recorded the following information about you: Colten Greer MA 12/10/2024 2:11 PM Signed Patient's daughter states that [facility] needs something from Dr. Santiago that its ok for patient to attend but not sure what exactly is needed. Phone call to [facility] for intake to contact our office to see what information they need from us. EVON Wade Mary, LPN 12/12/2024 2:29 PM Signed Called shaila for 2nd time, left message with Intake. To call office back Marin# [phone] Mckenzie Lombardo LPN December 12, 2024 2:29 PM Colten Greer MA 12/16/2024 2:34 PM Signed Spoke with Giovanni at [facility]. Once he has seen the patient and [...] Encounter Status:Closed by COLTEN GREER on 12/16/24 [facility] Markus 11-21-2024 [facility] MICHAELA BRANDT ([id number]) 1940 F Date Time Provider Department 11/21/24 MARIPOSA SALINAS During your visit today, we recorded the following information about you: Mariposa Salinas APRN.ARIEL 11/21/2024 9:19 AM Signed White blood count elevated. Any sign of infection? Urinary tract infection? Respiratory concerns? Thank you Mariposa Salinas APRN.Michaela Farr MA 11/21/2024 11:58 AM Signed Patient states [...] Status:Closed by MARIPOSA SALINAS on 03/30/25 Normal [facility] CBC panel Auto (Bld)on 11-17 Erythrocyte distribution width (RBC) [Ratio] 13.2 % Normal 11.5-15.0 [facility] Comment on above: Order Comment: Speci men Type: BLOOD SPECIMENOrdering Facility: [facility] Address: [address] [place] [address] Performed By: #### 5 8410-2 ####[facility] [id number] [place] [address] [place] Hematocrit (Bld) [Volume fraction] 37.7 % Normal 36.0-46.0 [facility] Comment on above: Order Comment: Speci men Type: BLOOD SPECIMENOrdering Facility: [facility] Address: [address] [place] [address] Performed By: #### 5 8410-2 ####[facility] [id number] [place] [address] [place] Hemoglobin (Bld) [Mass/Vol] 13.1 g/dL Normal 11.5-15.5 [facility] Comment on above: Order Comment: Speci men Type: BLOOD SPECIMENOrdering Facility: [facility] Address: [address] [place] [address] Performed By: #### 5 8410-2 ####[facility] [id number] [place] [address] [place] MCH (RBC) [Entitic mass] 30.5 pg Normal 26.0-34.0 [facility] Comment on above: Order Comment: Speci men Type: BLOOD SPECIMENOrdering Facility: [facility] Address: [address] [place] [address] Performed By: #### 5 8410-2 ####[facility]ITALLEDAJitendra [id number] [place] [address] [place] MCHC (RBC) [Mass/Vol] 34.7 g/dL Normal 30.5-36.0 [facility] Comment on above: Order Comment: Speci men Type: BLOOD SPECIMENOrdering Facility: [facility] Address: [address] [place] [address] Performed By: #### 5 8410-2 ####[facility]PITALNCLIJitendra [id number] [place] [address] [place] MCV (RBC) [Entitic vol] 87.9 fL Normal 80.0-100.0 [facility] Comment on above: Order Comment: Speci men Type: BLOOD SPECIMENOrdering Facility: [facility] Address: [address] [place] [address] Performed By: #### 5 8410-2 ####[facility]ITALNCL[facility] [id number] [place] [address] [place] Nucleated RBC (Bld) [#/Vol] 10*3/uL Normal <0.01 [facility] Comment on above: Order Comment: Speci men Type: BLOOD SPECIMENOrdering Facility: [facility] Address: [address] [place] [address] Performed By: #### 5 8410-2 ####[facility]ITALNCLIA [id number] [place] [address] [place] Platelet mean volume (Bld) [Entitic vol] 10.3 fL Normal 9.0-12.7 [facility] Comment on above: Order Comment: Speci men Type: BLOOD SPECIMENOrdering Facility: [facility] Address: [address] [place] [address] Performed By: #### 5 8410-2 ####[facility]ITALNCBL[facility] [id number] [place] [address] [place] Platelets (Bld) [#/Vol] 176 10*3/uL Normal 150-400 [facility] Comment on above: Order Comment: Speci men Type: BLOOD SPECIMENOrdering Facility: [facility] Address: [address] [place] [address] Performed By: #### 5 8410-2 ####[facility]ITALNCLIA [id number] [place] [address] [place] RBC (Bld) [#/Vol] 4.29 10*6/uL Normal 3.90-5.20 [facility] Comment on above: Order Comment: Speci men Type: BLOOD SPECIMENOrdering Facility: [facility] Address: [address] [place] [address] Performed By: #### 5 8410-2 ####[facility]ITALNCLIA [id number] [place] [address] [place] WBC (Bld) [#/Vol] 13.60 10*3/uL High 3.70-11.[address] [facility] Comment on above: Order Comment: Speci men Type: BLOOD SPECIMENOrdering Facility: [facility] Address: [address] [place] [address] Performed By: #### 5 8410-2 ####[facility]ITALNCLIA [id number] [place] [address] [place] Comprehensive metabolic 2000 panelon 11-17-2024 Albumin [Mass/Vol] 4.0 g/dL Normal 3.9-4.9 [facility] Comment on above: Order Comment: Speci men Type: BLOOD SPECIMENOrdering Facility: [facility] Address: [address] [place] [address] Performed By: #### 2 4323-8 ####[facility] [id number] [place] [address] [place] ALP [Catalytic activity/Vol] 78 U/L Normal 34-123 [facility] Comment on above: Order Comment: Speci men Type: BLOOD SPECIMENOrdering Facility: [facility] Address: [address] [place] [address] Performed By: #### 2 4323-8 ####[facility]ITALNCLIA [id number] [place] [address] [place] ALT [Catalytic activity/Vol] 5 U/L Low 7-38 [facility] Comment on above: Order Comment: Speci men Type: BLOOD SPECIMENOrdering Facility: [facility] Address: [address] [place] [address] Performed By: #### 2 4323-8 ####[facility]ITALNCBL[facility] [id number] [place] [address] [place] Anion gap [Moles/Vol] 14 mmol/L Normal 8-15 [facility] Comment on above: Order Comment: Speci men Type: BLOOD SPECIMENOrdering Facility: [facility] Address: [address] [place] [address] Performed By: #### 2 4323-8 ####[facility] MILLTOWNCLIA [id number] [place] [address] [place] AST [Catalytic activity/Vol] 11 U/L Low 13-35 [facility] Comment on above: Order Comment: Speci men Type: BLOOD SPECIMENOrdering Facility: [facility] Address: [address] [place] [address] Performed By: #### 2 4323-8 ####[facility] ORLANDOWNCLIA [id number] [place] [address] [place] Bilirubin [Mass/Vol] 1.2 mg/dL Normal 0.2-1.[address] [facility] Comment on above: Order Comment: Speci men Type: BLOOD SPECIMENOrdering Facility: [facility] Address: [address] [place] [address] Performed By: #### 2 4323-8 ####[facility] ORLANDOWNCLIA [id number] [place] [address] [place] Calcium [Mass/Vol] 9.3 mg/dL Normal 8.5-10.2 [facility] Comment on above: Order Comment: Speci men Type: BLOOD SPECIMENOrdering Facility: [facility] Address: [address] [place] [address] Performed By: #### 2 4323-8 ####[facility] MILLWNCLIA [id number] [place] [address] [place] Chloride [Moles/Vol] 104 mmol/L Normal 98-[address] [facility] Comment on above: Order Comment: Speci men Type: BLOOD SPECIMENOrdering Facility: [facility] Address: [address] [place] [address] Performed By: #### 2 4323-8 ####[facility]PITALNCLIA [id number] [place] [id number] [place] CO2 [Moles/Vol] 23 mmol/L Normal 22-30 [facility] Comment on above: Order Comment: Selvini men Type: BLOOD SPECIMENOrdering Facility: [facility] Address: [address] [place] [address] Performed By: #### 2 4323-8 ####[facility] [id number] [place] [address] [place] Creatinine [Mass/Vol] 0.95 mg/dL Normal 0.58-0.96 [facility] Comment on above: Order Comment: Speci men Type: BLOOD SPECIMENOrdering Facility: [facility] Address: [address] [place] [address] Performed By: #### 2 4323-8 ####[facility]ITALNCBL[facility] [id number] [place] [address] [place] Creatinine and Glomerular filtration rate.predicted panel (S/P/Bld) 59 mL/min/1.73m??? Low >=60 [facility] Comment on above: Order Comment: Speci men Type: BLOOD SPECIMENOrdering Facility: [facility] Address: [address] [place] [address] Result Comment: Linda mated Glomerular Filtration Rate [...] actual GFR. Performed By: #### 2 4323-8 ####[facility]ITALL[facility] [id number] [place] [address] [place] Glucose [Mass/Vol] 119 mg/dL High 74-99 [facility] Comment on above: Order Comment: Selvini men Type: BLOOD SPECIMENOrdering Facility: [facility] Address: [address] [id number] Result Comment: The [place] [employer] (ADA) provides guidance for cutoff [...] Standards of Medical Care in Diabetes 2016, [place] [employer]. Diabetes Care. 2016.39(Suppl 1). Performed By: #### 2 4323-8 ####[facility]PITALLEDAJitendra [id number] [place] [address] [place] Potassium [Moles/Vol] 3.7 mmol/L Normal 3.7-5.1 [facility] Comment on above: Order Comment: Speci men Type: BLOOD SPECIMENOrdering Facility: [facility] Address: [address] [place] [address] Performed By: #### 2 4323-8 ####[facility] [id number] [place] [address] [place] Protein [Mass/Vol] 6.6 g/dL Normal 6.3-8.0 [facility] [facility] Comment on above: Order Comment: Speci men Type: BLOOD SPECIMENOrdering Facility: [facility] Address: [address] [place] [address] Performed By: #### 2 4323-8 ####[facility] [id number] [place] [address] [place] Sodium [Moles/Vol] 141 mmol/L Normal 136-144 [facility] Comment on above: Order Comment: Speci men Type: BLOOD SPECIMENOrdering Facility: [facility] Address: [address] [id number] Performed By: #### 2 4323-8 ####[facility] [id number] [place] [address] [place] Urea nitrogen [Mass/Vol] 23 mg/dL High 7-21 [facility] Comment on above: Order Comment: Speci men Type: BLOOD SPECIMENOrdering Facility: [facility] Address: [address] [place] [address] Performed By: #### 2 4323-8 ####[facility] [id number] [place] [address] [place] Lipid 1996 panelon 4 Cholesterol [Mass/Vol] 176 mg/dL Normal <200 [facility] Comment on above: Order Comment: Speci men Type: BLOOD SPECIMENOrdering Facility: [facility] Address: [address] [place] [address] Result Comment: <200 mg/dL, Desirable 200-239 mg/dL, Borderline high >239 mg/dL, High Performed By: #### 2 4331-1 ####[facility] LABCLIA [id number] [address] STATES OF [facility] [id number] [place] [address] [place]#### 3051-0, 3024-7, 3016-3 ####[facility] LABCLIA [id number] [place] [address] [place] Cholesterol in HDL [Mass/Vol] 52 mg/dL Normal >39 [facility] Comment on above: Order Comment: Speci men Type: BLOOD SPECIMENOrdering Facility: [facility] Address: [address] [place] [address] Result Comment: 40-5 9 mg/dL, Acceptable >59 mg/dL, High: Negative risk factor for coronary heart disease <40 mg/dL, Low: Positive risk factor for coronary heart disease Performed By: #### 2 4331-1 ####[facility] LABCLIA [id number] [address] [id number] [place] [address] [place]#### 3051-0, 3024-7, 3016-3 ####[facility] LABCLIA [id number] [place] [address] [place] Cholesterol in LDL [Mass/Vol] 107 mg/dL High <100 [facility] Comment on above: Order Comment: Speci men Type: BLOOD SPECIMENOrdering Facility: [facility] Address: [address] [place] [address] Result Comment: <100 mg/dL, Optimal 100-129 mg/dL, Near optimal/above optimal 130-159 mg/dL, Borderline high 160-189 mg/dL, High >189 mg/dL, Very high Secondary prevention optimal LDL Cholesterol levels are recommended to be < 70 mg/dL Performed By: #### 2 4331-1 ####[facility] LABCLIA [id number] [address] [id number] [place] [address] [place]#### 3051-0, 3024-7, 3016-3 ####[facility] LABCLIA [id number] [place] [address] [place] Cholesterol in LDL/Cholesterol in HDL [Mass ratio] 2.06 {ratio} Normal <2.54 [facility] Comment on above: Order Comment: Speci men Type: BLOOD SPECIMENOrdering Facility: [facility] Address: [address] [place] [address] Result Comment: Refe rence: 1. National Cholesterol Education Program ATP III Guideline At-A-Glance Quick Desk Reference: National Heart, Lung, and Blood [place]. National Institutes of Health. 2001: NIH Publication No. 01-3305. 2. An International Atherosclerosis Society position paper: global recommendations for the management of dyslipidemia: executive summary, Atherosclerosis. 2014: 232(2):410-413. Performed By: #### 2 4331-1 ####[facility] LABCLIA [id number] [id number] [place] [address] [place]#### 3051-0, 3024-7, 3016-3 ####[facility] LABCLIA [id number] [place] [address] [place] Cholesterol in VLDL [Mass/Vol] 17 mg/dL Normal <30 [facility] Comment on above: Order Comment: Marcel men Type: BLOOD SPECIMENOrdering Facility: [facility] Address: [address] [place] [address] Performed By: #### 2 4331-1 ####[facility] LABCLIA [id number] [id number] [place] [address] [place]#### 3051-0, 3024-7, 3016-3 ####[facility] LABCLIA [id number] [place] [address] [place] Cholesterol non HDL [Mass/Vol] 124 mg/dL Normal <130 [facility] Comment on above: Order Comment: Marcel hopper Type: BLOOD SPECIMENOrdering Facility: [facility] Address: [address] [place] [address] Result Comment: <130 mg/dL, Optimal 130-159 mg/dL, Near optimal/above optimal 160-189 mg/dL, Borderline high 190-219 mg/dL, High >219 mg/dL, Very high Secondary prevention optimal non HDL Cholesterol levels are recommended to be <100 mg/dL Performed By: #### 2 4331-1 ####[facility] LABCLIA [id number] [address] [address] [facility] [id number] [place] [address] [place]#### 3051-0, 3023-7, 3016-3 ####[facility] LABCLIA [id number] [address] [address] [place] Cholesterol.total/Choles terol in HDL [Mass ratio] 3.38 {ratio} Normal <5.10 [facility] Comment on above: Order Comment: Speci men Type: BLOOD SPECIMENOrdering Facility: [facility] Address: [address] [place], [place] [address] Performed By: #### 2 4331-1 ####[facility] LABCLIA [id number] [address] [address] [facility] [id number] [place] [address] [place]#### 3051-0, 7, 3016-3 ####[facility] LABCLIA [id number] [address] [address] [place] FASTING TIME 14 hrs Normal [facility] Comment on above: Order Comment: Speci men Type: BLOOD SPECIMENOrdering Facility: [facility] Address: [address] [place] [address] Performed By: #### 2 4331-1 ####[facility] LABCLIA [id number] [address] [address] [place] [facility] [id number] [place] [address] [place]#### 3051-0, 3024-7, 3 ####[facility] LABCLIA [id number] [place] [address] [place] Triglyceride [Mass/Vol] 83 mg/dL Normal <150 [facility] Comment on above: Order Comment: Speci men Type: BLOOD SPECIMENOrdering Facility: [facility] Address: [address] [place] [address] Result Comment: <150 mg/dL, Normal 150-199 mg/dL, Borderline high 200-499 mg/dL, High >499 mg/dL, Very high Performed By: #### 2 4331-1 ####[facility] LABCLIA [id number] [address] [place] [id number] [place] [address] [place]#### 3051-0, 3024-05, 3 ####[facility] LABCLIA [id number] [place] [address] [place] T3Free SerPl-mCncon 11-17-20 24 Free T3 [Mass/Vol] 2.4 pg/mL Normal 2.3-4.1 [facility] Comment on above: Order Comment: Speci men Type: BLOOD SPECIMENOrdering Facility: [facility] Address: [address] [place] [address] Performed By: #### 2 4331-1 ####[facility] LABCLIA [id number] [address] [id number] [place] [address] [place]#### 3051-0, 3024-05, 3 ####[facility] LABCLIA [id number] [place] [address] [place] T4 Free SerPl-mCncon 024 Free T4 [Mass/Vol] 1.2 ng/dL Normal 0.9-1.7 [facility] Comment on above: Order Comment: Speci men Type: BLOOD SPECIMENOrdering Facility: [facility] Address: [address] [place] [address] Performed By: #### 2 4331-1 ####[facility] LABCLIA [id number] [address] [id number] [place] [address] [place]#### 3051-0, 3024-7, 3016-3 ####[facility] LABCLIA [id number] [place] [address] [place] TSH SerPl-aCncon 11-17-2024 TSH Qn 1.280 m[IU]/L Normal 0.270-4.200 [facility] Comment on above: Order Comment: Speci men Type: BLOOD SPECIMENOrdering Facility: [facility] Address: [address] [place] [address] Performed By: #### 2 4331-1 ####[facility] LABCLIA [id number] [id number] [place] [address] [place]#### 3051-0, 3024-7, 3016-3 ####[facility] LABCLIA [id number] [place] [address] [place] Vit B12 SerPl-mCncon 024 Cobalamin (Vitamin B12) [Mass/Vol] 404 pg/mL Normal 232-1245 [facility] Comment on above: Order Comment: Speci men Type: BLOOD SPECIMENOrdering Facility: [facility] Address: [address] [id number] Performed By: #### 2 132-9 ####[facility] LABCLPEEWEE [id number] [facility] [id number] [id number] [place] CNOVon 11-05-2024 CNOV Office Visit (INTMWS ) MICHAELA BRANDT ([id number]) 1940 F Date Time Provider Department 11/05/24 2:40 PM MARIPOSA SALINAS INTSOL During your visit today, we recorded the following information about you: Pulse Respiration Blood pressure Weight 76/minute 16/minute 118/72 60.8 kg Mariposa Salinas APRN.POSTAL INSPECTOR 11/05/2024 3:38 PM Signed CC: Patient presents with: Establish Care: Establish Care HPI Michaela Brandt is a 84 year old female who presents today for establish care. Just moved to [place] where her daughter lives after needing to sell her 3 story home to allow her to continue to live independently. [facility] P[facility]. Is now in her own 1 level apartment. Needs assistance with medication dispensing and is needing support to drive her to appointments and to the store. Is hoping to go to [employer] [place] a few times a week as well. [...] UTIs and followed with a urologist in [place]. Denies abdominal pain, fever, chills, or dark/foul [...] Never done Influenza Vaccine(1) Never done Covid-19 Vaccine( - season) due on 07/20/2024 DATA REVIEWED: Outside chart from Dr Richey reviewed. For what was available. ASSESSMENT/PLAN: 1. Encounter to establish care - ICD9: V65.8, ICD10: Z76.89 (primary diagnosis) Need to request (more content not included)... Normal [facility] Culture, Urineon 12-19-2022 Culture, Urine Culture, Urine-: [...] F Trimethoprim/Sulfameth oxazole S <=20 F Normal [facility] Vital Signs Date Time Vital Sign Value Performing Clinician Facility 06-03-2025 11:18-0400 Body weight 54.16 kg Dillan Santiago MD Work Phone: [facility] 06-03-2025 11:18-0400 Diastolic blood pressure 71 mm[Hg] Dillan Santiago MD Work Phone: [facility] 06-03-2025 11:18-0400 Heart rate 64 /min Dillan Santiago MD Work Phone: [facility] 06-03-2025 11:18-0400 Respiratory rate 16 /min Dillan Santiago MD Work Phone: [facility] 06-03-2025 11:18-0400 SaO2% (BldA) [Mass fraction] 95 % Dillan Santiago MD Work Phone: [facility] 06-03-2025 11:18-0400 Systolic blood pressure 134 mm[Hg] Dillan Santiago MD Work Phone: [facility] 05-17-2025 11:49-0400 Body temperature 98.6 [degF] Dr. Vadim Florence DO Work Phone: [facility] 05-17-2025 11:49-0400 Diastolic blood pressure 66 mm[Hg] Dr. Vadim Florence DO Work Phone: [facility] 05-17-2025 11:49-0400 Heart rate 65 /min Dr. Vadim Florence DO Work Phone: [facility] 05-17-2025 11:49-0400 Respiratory rate 16 /min Dr. Vadim Florence DO Work Phone: [facility] 05-17-2025 11:49-0400 SaO2% (BldA) [Mass fraction] 99 % Dr. aVdim Florence DO Work Phone: [facility] 05-17-2025 11:49-0400 Systolic blood pressure 148 mm[Hg] Dr. Vadim Florence DO Work Phone: [facility] 05-17-2025 09:32-0400 Body height 152.[address] Vadim Florence DO Work Phone: [facility] 05-06-2025 11:28-0400 Diastolic blood pressure 64 mm[Hg] Dillan Santiago MD Work Phone: [facility] 05-06-2025 11:28-0400 Systolic blood pressure 144 mm[Hg] Dillan Santiago MD Work Phone: [facility] 05-06-2025 11:27-0400 Body weight 55.79 kg Dillan Santiago MD Work Phone: [facility] 05-06-2025 11:27-0400 Heart rate 62 /min Dillan Santiago MD Work Phone: [facility] 05-06-2025 11:27-0400 Respiratory rate 12 /min Dillan Santiago MD Work Phone: [facility] 05-06-2025 11:27-0400 SaO2% (BldA) [Mass fraction] 98 % Dillan Santiago MD Work Phone: [facility] 04-17-2025 11:23-0400 Diastolic blood pressure 71 mm[Hg] Dillan Santiago MD Work Phone: [facility] 04-17-2025 11:23-0400 Heart rate 67 /min Dillan Santiago MD Work Phone: [facility] 04-17-2025 11:23-0400 Respiratory rate 16 /min Dillan Santiago MD Work Phone: [facility] 04-17-2025 11:23-0400 SaO2% (BldA) [Mass fraction] 98 % Dillan Santiago MD Work Phone: [facility] 04-17-2025 11:23-0400 Systolic blood pressure 124 mm[Hg] Dillan Santiago MD Work Phone: [facility] 03-19-2025 07:51-0400 Body temperature 98.3 [degF] Dr. Vadim Florence DO Work Phone: [facility] 03-19-2025 07:51-0400 Diastolic blood pressure 64 mm[Hg] Dr. Vadim Florence DO Work Phone: 1(787)123-430285 [place] [address] 03-19-2025 07:51-0400 Heart rate 68 /min Dr. Vadim Florence DO Work Phone: 2(213)960-857285 [place] [address] 03-19-2025 07:51-0400 Respiratory rate 16 /min Dr. Vadim Florence DO Work Phone: 9(055)760-661938 [address] 03-19-2025 07:51-0400 SaO2% (BldA) [Mass fraction] 98 % Dr. Vadim Florence DO Work Phone: 8(190)752-081438 [address] 03-19-2025 07:51-0400 Systolic blood pressure 150 mm[Hg] Dr. Vadim Florence DO Work Phone: 1(236)375-243685 [place] [address] 03-17-2025 14:08-0400 Body mass index (BMI) [Ratio] 25.4 kg/m2 Dr. Vadim Florence DO Work Phone: 0(263)670-913798 [place] [address] 03-17-2025 14:08-0400 Body weight 58.[address] Vadim Florence DO Work Phone: 5(539)935-054598 [place] [address] 03-11-2025 10:53-0400 Body temperature 97.7 [degF] Dr. Vadim Florence DO Work Phone: 4(513)914-409338 [address] 03-11-2025 10:53-0400 Diastolic blood pressure 48 mm[Hg] Dr. Vadim Florence DO Work Phone: 4(835)993-512998 [place] [address] 03-11-2025 10:53-0400 Heart rate 67 /min Dr. Vadim Florence DO Work Phone: 4(424)009-585898 [place] [address] 03-11-2025 10:53-0400 Respiratory rate 18 /min Dr. Vadim Florence DO Work Phone: 2(616)118-807298 [place] [address] 03-11-2025 10:53-0400 SaO2% (BldA) [Mass fraction] 100 % Dr. Vadim Florence DO Work Phone: 8(064)979-194698 [place] [address] 03-11-2025 10:53-0400 Systolic blood pressure 118 mm[Hg] Dr. Vadim Florence DO Work Phone: 9(782)313-871198 [place] [address] 03-11-2025 10:52-0400 Body height 152.[address] Vadim Florence DO Work Phone: 4(537)881-428098 [place] [address] 03-11-2025 10:52-0400 Body weight 58.[address] Vadim Florence DO Work Phone: 0(257)082-993885 [place] [address] 03-10-2025 14:50-0400 Body mass index (BMI) [Ratio] 25.4 kg/m2 Dr. Vadim Florence DO Work Phone: 4(088)380-665685 [place] [address] 03-04-2025 13:43-0400 Body temperature 98.1 [degF] Dr. Vadim Florence DO Work Phone: 9(828)029-770098 [place] [address] 03-04-2025 13:43-0400 Diastolic blood pressure 52 mm[Hg] Dr. Vadim Florence DO Work Phone: 3(301)123-763098 [place] [address] 03-04-2025 13:43-0400 Heart rate 83 /min Dr. Vadim Florence DO Work Phone: 0(487)721-388498 [place] [address] 03-04-2025 13:43-0400 Respiratory rate 16 /min Dr. Vadim Florence DO Work Phone: 7(682)681-701298 [place] [address] 03-04-2025 13:43-0400 SaO2% (BldA) [Mass fraction] 98 % Dr. Vadim Florence DO Work Phone: 4(516)716-515798 [place] [address] 03-04-2025 13:43-0400 Systolic blood pressure 142 mm[Hg] Dr. Vadim Florence DO Work Phone: 9(295)741-168998 [place] [address] 03-04-2025 11:43-0400 Inhaled oxygen flow rate 97 L/min Dr. Vadim Florence DO Work Phone: 6(771)390-457298 [place] [address] 03-04-2025 05:53-0400 Body mass index (BMI) [Ratio] 25.2 kg/m2 Dr. Vadim Florence DO Work Phone: 8(387)120-805698 [place] [address] 03-04-2025 05:53-0400 Body weight 58.[address] Vadim Florence DO Work Phone: 8(150)760-913698 [place] [address] 03-01-2025 15:09-0400 Body height 152.[address] Vadim Florence DO Work Phone: 4(579)768-085898 [place] [address] 03-01-2025 13:19-0400 Diastolic blood pressure 59 mm[Hg] Dr. Vadim Florence DO Work Phone: 3(606)037-983698 [place] [address] 03-01-2025 13:19-0400 Heart rate 60 /min Dr. Vadim Florence DO Work Phone: 6(786)863-085798 [place] [address] 03-01-2025 13:19-0400 Respiratory rate 21 /min Dr. Vadim Florence DO Work Phone: 0(607)869-816698 [place] [address] 03-01-2025 13:19-0400 SaO2% (BldA) [Mass fraction] 98 % Dr. Vadim Florence DO Work Phone: 3(819)738-051898 [place] [address] 03-01-2025 13:19-0400 Systolic blood pressure 145 mm[Hg] Dr. Vadim Florence DO Work Phone: 8(303)209-479098 [place] [address] 03-01-2025 12:26-0400 Body temperature 97.6 [degF] Dr. Vadim Florence DO Work Phone: 7(923)085-674098 [place] [address] 03-01-2025 11:25-0400 Body height 152.[address] Vadim Florence DO Work Phone: 5(863)052-455598 [place] [address] 03-01-2025 11:25-0400 Body mass index (BMI) [Ratio] 25.7 kg/m2 Dr. Vadim Florence DO Work Phone: [facility] 03-01-2025 11:25-0400 Body weight 59.[address] Vadim Florence DO Work Phone: [facility] 02-19-2025 11:23-0400 Body temperature 98.71 [degF] Walt Robles CARTRIDGE LOADING OPERATOR.POSTAL INSPECTOR Work Phone: [facility] 02-19-2025 11:23-0400 Body weight 57 kg Walt Robles CARTRIDGE LOADING OPERATOR.POSTAL INSPECTOR Work Phone: [facility] 02-19-2025 11:23-0400 Diastolic blood pressure 79 mm[Hg] Walt Robles CARTRIDGE LOADING OPERATOR.POSTAL INSPECTOR Work Phone: [facility] 02-19-2025 11:23-0400 Heart rate 70 /min Walt Robles CARTRIDGE LOADING OPERATOR.POSTAL INSPECTOR Work Phone: [facility] 02-19-2025 11:23-0400 Respiratory rate 22 /min Walt Robles CARTRIDGE LOADING OPERATOR.POSTAL INSPECTOR Work Phone: [facility] 02-19-2025 11:23-0400 SaO2% (BldA) [Mass fraction] 98 % Walt Robles CARTRIDGE LOADING OPERATOR.POSTAL INSPECTOR Work Phone: [facility] 02-19-2025 11:23-0400 Systolic blood pressure 145 mm[Hg] Walt Robles CARTRIDGE LOADING OPERATOR.POSTAL INSPECTOR Work Phone: [facility] 02-18-2025 10:20-0400 Body weight 57.61 kg Mariposa Older CARTRIDGE LOADING OPERATOR.POSTAL INSPECTOR Work Phone: [facility] 02-18-2025 10:20-0400 Diastolic blood pressure 80 mm[Hg] Mariposa Older CARTRIDGE LOADING OPERATOR.POSTAL INSPECTOR Work Phone: [facility] 02-18-2025 10:20-0400 Heart rate 74 /min Mariposa Older CARTRIDGE LOADING OPERATOR.POSTAL INSPECTOR Work Phone: [facility] 02-18-2025 10:20-0400 Respiratory rate 16 /min Mariposa Older CARTRIDGE LOADING OPERATOR.POSTAL INSPECTOR Work Phone: [facility] 02-18-2025 10:20-0400 SaO2% (BldA) [Mass fraction] 97 % Mariposa Older CARTRIDGE LOADING OPERATOR.POSTAL INSPECTOR Work Phone: [facility] 02-18-2025 10:20-0400 Systolic blood pressure 122 mm[Hg] Mariposa Older CARTRIDGE LOADING OPERATOR.POSTAL INSPECTOR Work Phone: [facility] 02-04-2025 11:21-0400 Body weight 57.42 kg Dillan Santiago MD Work Phone: [facility] 02-04-2025 11:21-0400 Diastolic blood pressure 80 mm[Hg] Dillan Santiago MD Work Phone: [facility] 02-04-2025 11:21-0400 Heart rate 67 /min Dillan Santiago MD Work Phone: [facility] 02-04-2025 11:21-0400 SaO2% (BldA) [Mass fraction] 98 % Dillan Santiago MD Work Phone: [facility] 02-04-2025 11:21-0400 Systolic blood pressure 131 mm[Hg] Dillan Santiago MD Work Phone: [facility] 01-17-2025 19:54-0500 Body temperature 98.1 [degF] Dr. Vadim Florence DO Work Phone: [facility] 01-17-2025 19:54-0500 Diastolic blood pressure 69 mm[Hg] Dr. Vadim Florence DO Work Phone: [facility] 01-17-2025 19:54-0500 Heart rate 77 /min Dr. Vadim Florence DO Work Phone: [facility] 01-17-2025 19:54-0500 Respiratory rate 19 /min Dr. Vadim Florence DO Work Phone: [facility] 01-17-2025 19:54-0500 SaO2% (BldA) [Mass fraction] 98 % Dr. Vadim Florence DO Work Phone: [facility] 01-17-2025 19:54-0500 Systolic blood pressure 146 mm[Hg] Dr. Vadim Florence DO Work Phone: [facility] 12-23-2024 10:07-0500 Body temperature 97.39 [degF] Tom Baltazar PA-C Work Phone: [facility] 12-23-2024 10:07-0500 Body weight 59.88 kg Tom Baltazar PA-C Work Phone: [facility] 12-23-2024 10:07-0500 Diastolic blood pressure 64 mm[Hg] Tom Baltazar PA-C Work Phone: [facility] Comment on above: Tom notified of blood pressure. No c omplaints from patient. 12-23-2024 10:07-0500 Heart rate 80 /min Tom Baltazar PA-C Work Phone: [facility] 12-23-2024 10:07-0500 Respiratory rate 12 /min Tom Baltazar PA-C Work Phone: [facility] 12-23-2024 10:07-0500 SaO2% (BldA) [Mass fraction] 97 % Tom Baltazar PA-C Work Phone: [facility] 12-23-2024 10:07-0500 Systolic blood pressure 144 mm[Hg] Tom Baltazar PA-C Work Phone: [facility] Comment on above: Tom notified of blood pressure. No c omplaints from patient. 11-05-2024 14:35-0500 Body weight 60.78 kg Mariposa Older CARTRIDGE LOADING OPERATOR.POSTAL INSPECTOR Work Phone: [facility] 11-05-2024 14:35-0500 Diastolic blood pressure 72 mm[Hg] Mariposa Older CARTRIDGE LOADING OPERATOR.POSTAL INSPECTOR Work Phone: [facility] 11-05-2024 14:35-0500 Heart rate 76 /min Mariposa Older CARTRIDGE LOADING OPERATOR.POSTAL INSPECTOR Work Phone: [facility] 11-05-2024 14:35-0500 Respiratory rate 16 /min Mariposa Older CARTRIDGE LOADING OPERATOR.POSTAL INSPECTOR Work Phone: [facility] 11-05-2024 14:35-0500 SaO2% (BldA) [Mass fraction] 97 % Mariposa Older CARTRIDGE LOADING OPERATOR.POSTAL INSPECTOR Work Phone: [facility] 11-05-2024 14:35-0500 Systolic blood pressure 118 mm[Hg] Mariposa Older CARTRIDGE LOADING OPERATOR.POSTAL INSPECTOR Work Phone: [facility] 01-17-2024 13:24-0500 Body height 152.4 cm [facility] 01-17-2024 13:24-0500 Body mass index (BMI) [Ratio] 26.9 kg/m2 [facility] 01-17-2024 13:24-0500 Body weight 62.59 kg [facility] 01-17-2024 13:24-0500 Diastolic blood pressure 82 mm[Hg] [facility] 01-17-2024 13:24-0500 Heart rate 73 /min [facility] 01-17-2024 13:24-0500 Respiratory rate 16 /min [facility] 01-17-2024 13:24-0500 SaO2% (BldA) [Mass fraction] 99 % [facility] 01-17-2024 13:24-0500 Systolic blood pressure 126 mm[Hg] [facility] Encounters Encounter Date Encounter Type Care Provider Facility Start: 06-17-2025 End: 06-18-2025 Telephone encounter Dillan Santiago MD Work Phone: [facility] [place] Comment on above: Home Health Point of Care Results Start: 06-03-2025 End: 06-03-2025 Office outpatient visit 40 minutes Dillan Santiago MD Work Phone: Geriatrics Comment on above: Recurrent UTI (Prima ry Dx); 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); Anxiety and depression; Acute heart failure, unspecified heart failure type (HCC); Self-catheterizes urinary bladder; Urinary retention; Onychomycosis; Thickened nail; Acquired deformity of toe, unspecified laterality; IGTN (ingrowing toe nail) Start: 06-03-2025 End: 06-03-2025 ambulatory DILLAN SANTIAGO Facility:[facility] Start: 05-20-2025 End: 05-26-2025 Telephone encounter Dillan Santiago MD Work Phone: Internal Medicine [place] Comment on above: Forms Start: 05-18-2025 End: 05-19-2025 ambulatory Dillan Santiago MD Work Phone: Geriatrics Start: 05-18-2025 End: 05-19-2025 Patient encounter procedure Dillan Santiago MD Work Phone: Geriatrics Comment on above: Appointment for card iology Start: 05-17-2025 End: 05-17-2025 Emergency department patient visit Dr. Vadim Florence DO Work Phone: -Emergency Department Work Phone: Start: 05-07-2025 End: 05-08-2025 Follow-up encounter Dillan Santiago MD Work Phone: Internal Medicine [place] Start: 05-07-2025 End: 05-12-2025 Telephone encounter Dillan Santiago MD Work Phone: Internal Medicine [place] Comment on above: [facility] HH request ing order Start: 05-06-2025 End: 05-07-2025 Telephone encounter Dillan Santiago MD Work Phone: Internal [facility] [place] Comment on above: Anxiety Start: 05-06-2025 End: 05-06-2025 [facility] Start: 05-06-2025 End: 05-06-2025 Office outpatient visit [...] hip hemiarthroplasty Start: 05-06-2025 End: 05-06-2025 ambulatory [facility] Facility:[facility] Start: 05-04-2025 End: 05-04-2025 Telephone encounter Dillan Santiago MD Work Phone: Family [facility] [place] Comment on above: Edema Start: 05-01-2025 End: 05-02-2025 Refill Mariposa Salinas APRN.CNP Work Phone: Internal Medicine [place] Comment on above: Refill Request Start: 04-27-2025 End: 05-05-2025 Telephone encounter Tom Baltazar PA-C Work Phone: Urology Comment on above: Orders (Self cathete r) Start: 04-24-2025 End: 04-24-2025 ambulatory Dillan Santiago MD Work Phone: Internal [facility] [place] Start: 04-24-2025 End: 04-24-2025 Patient encounter procedure Dillan Santiago MD Work Phone: Internal Medicine [place] Comment on above: Orthopedic Specialist referral Start: 04-24-2025 End: 04-28-2025 Telephone encounter Dillan Santiago MD Work Phone: [facility] [place] Comment on above: Patient Update Start: 04-21-2025 End: 04-22-2025 Telephone encounter Dillan Santiago MD Work Phone: Family [facility] [place] Comment on above: Swelling Start: 04-20-2025 End: 04-20-2025 ambulatory Dillan Santiago MD Work Phone: Internal Medicine [place] Comment on above: Concern in regards t o care Start: 04-20-2025 End: 04-20-2025 Telephone encounter Dillan Santiago MD Work Phone: Internal Medicine [place] Comment on above: Patient Update; Orde rs Start: 04-17-2025 End: 04-20-2025 Telephone encounter Dillan Santiago MD Work Phone: Internal Medicine [place] Comment on above: Follow HH Request information from care home Start: 04-17-2025 End: 04-17-[address] Dillan Santiago MD Work Phone: [facility] Start: 04-17-2025 End: 04-17-2025 Patient encounter procedure Daya PEREZ -[facility] Work Phone: Start: 04-17-2025 End: 04-17-2025 Office outpatient visit 40 minutes Dillna Santiago MD Work Phone: Internal Medicine [place] Comment on above: Ambulatory dysfuncti on (Primary [...] 3 (HCC) Start: 04-17-2025 End: 04-17-2025 ambulatory [facility] Facility:[facility] Start: 04-06-2025 ambulatory [facility] Facility:[facility] Start: 04-06-2025 Registered Referred Adele Gusman MD [facility] Start: 03-30-2025 End: 03-30-2025 Patient encounter procedure Daya PEREZ [facility] Work Phone: Start: 03-30-2025 End: 03-30-[address] Vadim Florence DO Work Phone: [facility] Work Phone: Start: 03-30-2025 End: 03-30-2025 Departed Referred Daya PEREZ [facility] Start: 03-30-2025 End: 03-30-2025 ambulatory Daya MEEHAN Facility:[facility] Start: 03-24-2025 End: 03-24-[address] Dillan Santiago MD Work Phone: -[facility] Start: 03-24-2025 End: 03-24-[address] Adele Gusman MD -[facility] Work Phone: Start: 03-23-2025 End: 03-23-2025 Departed Referred Adele Gusman MD -[facility] Start: 03-23-2025 End: 03-23-2025 ambulatory Dillan Santiago Facility:[facility] Start: 03-19-2025 End: 03-19-2025 Telephone encounter Kentrell Montgomery MSW Navigation Start: 03-09-2025 Non-patient / Non-visit Dr. Vadim munoz [facility] Start: 03-09-2025 End: 03-09-[address] Vadim Florence DO Work Phone: [facility] Work Phone: Start: 03-09-2025 End: 03-09-[address] Garfield Yo MD -[facility] Work Phone: Start: 03-09-2025 End: 03-09-2025 ambulatory [facility] Facility:[facility] Start: 03-04-2025 End: 03-19-2025 Evaluation and management of inpatient Dr. Garfield Yo MD -Transitional Care Unit Start: 03-04-2025 Non-patient / Non-visit Dr. Jessica Tran MD -[facility] [facility] Work Phone: Start: 03-03-2025 Non-patient / Non-visit Dr. Jessica Tran MD -[facility] Work Phone: Start: 03-03-2025 End: 03-04-2025 Admission to same day surgery center Dillan Santiago MD Work Phone: Geriatrics Comment on above: Michaela Hip surgery Start: 03-03-2025 End: 03-04-2025 ambulatory Dillan Santiago MD Work Phone: Geriatrics Start: 03-02-2025 Non-patient / Non-visit Dr. Jessica Tran MD -[facility] [facility] Work Phone: Start: 03-01-2025 ambulatory [facility]and ty:[facility] Start: 03-01-2025 End: 03-04-2025 Evaluation and management of inpatient Dr. Roro Long DO -Medical Surgical 3 Work Phone: Start: 02-27-2025 End: 03-02-2025 Telephone encounter Kentrell Montgomery HEAD OF PHYSICS Navigation Start: 02-24-2025 End: 02-25-2025 Refill Dillan Santiago MD Work Phone: Geriatrics Comment on above: Refill Request Start: 02-22-2025 End: 02-22-2025 Follow-up encounter Walt Robles APRN.POSTAL INSPECTOR Work Phone: [facility] Start: 02-19-2025 End: 02-19-2025 Telephone encounter Walt Robles APRN.POSTAL INSPECTOR Work Phone: [facility] Comment on above: Clinical Update Start: 02-19-2025 End: 02-19-2025 ambulatory [facility] Facility:[facility] Start: 02-19-2025 End: 02-19-2025 Patient encounter procedure Walt Robles APRN.POSTAL INSPECTOR Work Phone: [facility] Comment on above: Recurrent UTI (urina ry tract infection) (Primary Dx) Start: 02-18-2025 End: 04-20-2025 Follow-up encounter Dillan Santiago MD Work Phone: Internal Medicine [place] Start: 02-18-2025 End: 02-27-2025 ambulatory Dillan Santiago MD Work Phone: Geriatrics Comment on above: Concern for future c are Start: 02-18-2025 End: 02-18-2025 Patient encounter procedure Mariposa Salinas APRN.POSTAL INSPECTOR Work Phone: Internal Medicine [place] Comment on above: Impacted cerumen of right ear (Primary Dx) Start: 02-17-2025 End: 02-17-2025 ambulatory [facility] Facility:[facility] Start: 02-04-2025 End: 02-04-2025 ambulatory SELF Facility:[facility] Start: 02-04-2025 End: 02-04-2025 Office consultation new/estab patient 60 min Dillan Ganta MD Work Phone: Geriatrics Comment on above: [...] Dillan Santiago MD Work Phone: Internal Medicine [place] Comment on above: Refill Request Start: 01-24-2025 ambulatory DILLAN SANTIAGO Facility:1 [id number] Start: 01-24-2025 End: 01-24-2025 Subsequent hospital visit by physician [facility] 1 Work Phone: [facility] Comment on above: Cognitive impairment , mild, so stated [G31.84] Start: 01-23-2025 End: 01-27-2025 ambulatory Dillan Santiago MD Work Phone: Geriatrics Comment on above: Clonazepam Start: 01-21-2025 End: 01-22-2025 Refill Dillan Santiago MD Work Phone: Internal Medicine [place] Comment on above: Refill Request Start: 01-17-2025 End: 01-17-2025 Emergency department patient visit Dr. Vadim Florence DO -Emergency Department Work Phone: Start: 01-09-2025 End: 01-13-2025 ambulatory Dillan aSntiago MD Work Phone: Geriatrics Comment on above: Handicap placard Start: 01-01-2025 End: 01-02-2025 ambulatory Dillan Santiago MD Work Phone: Geriatrics Comment on above: Taking new medicatio n Aricept Start: 12-31-2024 End: 01-01-2025 Refill Mariposa Older CARTRIDGE LOADING OPERATOR.POSTAL INSPECTOR Work Phone: Internal Medicine [place] Comment on above: Refill Request Start: 12-23-2024 End: 12-25-2024 Telephone encounter Tom Baltazar PA-C Work Phone: Urology Comment on above: Request Outside [facility] Records Start: 12-23-2024 End: 12-23-2024 ambulatory [facility] Facility:[facility] Start: 12-23-2024 End: 12-23-2024 Patient encounter procedure Tom Baltazar PA-C Work Phone: Urology Comment on above: Retention of urine, unspecified (Primary Dx); Self-catheterizes urinary bladder; Urinary problem Start: 12-15-2024 End: 12-15-2024 Refill Mariposa Older CARTRIDGE LOADING OPERATOR.POSTAL INSPECTOR Work Phone: Internal Medicine [place] Comment on above: Refill Request Start: 12-12-2024 End: 12-15-2024 Refill Mariposa Older CARTRIDGE LOADING OPERATOR.POSTAL INSPECTOR Work Phone: Internal Medicine [place] Comment on above: Refill Request Start: 12-10-2024 [...] Ambulates with cane Start: 12-10-2024 End: 12-10-2024 [facility] Facility:[facility] Start: 11-17-2024 End: 11-17-2024 [facility] Facility:[facility] Start: 11-11-2024 End: 11-21-2024 Refill Mariposa Older CARTRIDGE LOADING OPERATOR.POSTAL INSPECTOR Work Phone: Internal Medicine [place] Comment on above: Refill Request clonazePAM refill Start: 11-05-2024 End: 11-05-2024 Patient encounter procedure Mariposa Salinas CARTRIDGE LOADING OPERATOR.POSTAL INSPECTOR Work Phone: Internal Medicine [place] Comment on above: Encounter to cox monett (Primary Dx); Anxiety and depression; Hypothyroidism, unspecified type; Balance disorder; Ambulates with cane; Concern about memory; Self-catheterizes urinary bladder; Unable to void; Assistance needed for bathing; Lipid screening; Urinary problem Start: 11-05-2024 End: 11-05-2024 ambulatory MARIPOSA SALINAS Facility:[facility] Start: 11-05-2024 End: 11-06-2024 Refill Mariposa Salinas CARTRIDGE LOADING OPERATOR.POSTAL INSPECTOR Work Phone: Internal Medicine [place] Comment on above: Med Change Request Start: 01-17-2024 ambulatory Ludin Boland ty:[facility] Start: 01-17-2024 End: 01-17-2024 ambulatory [facility] Work Phone: Start: 01-17-2024 End: 01-17-2024 [facility] [address] [address] Work Phone: Procedures Date Procedure Procedure Detail Performing Clinician Start: 05-17-[address] Abbie Santiago MD Work Phone: Start: 05-17-2025 Urnls dip stick/tabl et reagent auto microscopy Dr. Vadim Florence DO Work Phone: Start: 03-19-[address] Vadim [...] stick/tabl et rgnt auto w/o microscopy Dasha Plata APRN.POSTAL INSPECTOR Work Phone: Start: 01-24-2025 MRI 3D BRAIN QUANT Chit ra Jeremy DELACRUZ Work Phone: Start: 01-24-2025 Mri brain brain [...] Author Start: 05-06-2028 Diabetes Screening Diabetes Screenin [facility] Start: 11-17-2027 Diabetes Screening Diabetes Screenin [facility] Start: 06-03-2026 RSV Vaccine (1 - 1-d ose 75+ series) RSV Vaccine (1 - 1-dose 75+ series) [facility] Comment on above: Postponed from 08/17 (Declined at this time) Start: 07-20-2025 Influenza vaccination [facility] Start: 07-17-2025 End: 07-17-2025 Patient encounter procedure 07/17/2025 11:20 AM EDT Office Visit [facility] [place] [address] [place], [place] [address] Dillan Santiago MD [address] [place], [place] [id number] 3 Month F/U [facility] [place] Comment on above: 3 Month F/U Start: 07-14-2025 End: 07-14-2025 Patient encounter procedure 07/14/2025 10:00 AM EDT Office Visit Podiatry [address] [place] [address] Da Klein [address] [place] [address] bilateral toenails/very thick Podiatry Comment on above: bilateral toenails/v jaxson thick Start: 06-03-2025 End: 06-03-2025 Patient encounter procedure 06/03/2025 11:00 AM EDT Office Visit Geriatrics [address] [place] [address] Dillan Santiago MD [address] [place] [address] 4 wk follow up Geriatrics Comment on above: 4 wk follow up Start: 05-25-2025 End: 05-25-2025 Patient encounter procedure 05/25/2025 8:00 AM EDT Office Visit Cardiology [address] [place] [address] Acute heart failure, unspecified heart failure type (HCC) [I50.9] Cardiology Comment on above: Acute heart failure, unspecified heart failure type (HCC) [I50.9] Start: 05-17-2025 Bacteria identified in Urine by Culture Urine Culture [facility] Start: 05-17-2025 End: 05-17-2025 [facility] Start: 05-17-2025 [facility] Start: 05-06-2025 End: 08-05-2025 Comprehensive metabolic 2000 panel - Serum or Plasma [facility] Comment on above: Expected: 05/06/2025 , Expires: 08/05/2025 Start: 05-06-2025 End: 08-05-2025 Hemoglobin A1c in Blood [facility] Comment on above: Expected: 05/06/2025 , Expires: 08/05/2025 Start: 05-06-2025 End: 08-05-2025 Natriuretic peptide.B prohormone N-Terminal [Mass/volume] in Serum or Plasma [facility] Comment on above: Expected: 05/06/2025 , Expires: 08/05/2025 Start: 05-06-2025 End: 05-06-2025 Patient encounter procedure 05/06/2025 11:30 AM EDT Office Visit Geriatrics [address] [place] [address] Dillan Santiago MD [address] [place] [address] 3 mo follow up Geriatrics Comment on above: 3 mo follow up Start: 03-19-2025 Removal of urinary catheter [facility] Start: 03-19-2025 Patient discharge [facility] Start: 03-18-2025 Development of care plan [facility] Start: 03-16-2025 [facility] Start: 03-14-2025 [facility] Start: 03-11-2025 [facility] Start: 03-11-2025 Incentive spirometry [facility] Start: 03-10-2025 Recommendation to co ntinue with treatment [facility] Start: 03-06-2025 [facility] Start: 03-05-2025 Speech therapy management [facility] Start: 03-05-2025 Development of care plan [facility] Start: 03-05-2025 Developing a treatme nt plan [facility] Start: 03-05-2025 Speech therapy assessment [facility] Start: 03-04-2025 End: 03-04-2025 Contact precautions [facility] Start: 03-04-2025 Admission procedure [facility] Start: 03-04-2025 Introduction of urin clay catheter [facility] Start: 03-04-2025 Measuring intake and output [facility] Start: 03-04-2025 Patient referral to dietitian [facility] Start: 03-04-2025 Referral to occupati onal therapist [facility] Start: 03-04-2025 Referral to service [facility] Start: 03-04-2025 Verification routine [facility] Start: 03-04-2025 Vital signs measurements [facility] Start: 03-04-2025 End: 03-04-2025 [facility] Start: 03-04-2025 Following clinical p athway protocol [facility] Start: 03-04-2025 Patient discharge [facility] Start: 03-04-[address] [facility] Start: 03-03-2025 [facility] Start: 03-03-2025 [facility] Start: 03-03-2025 [facility] Start: 03-03-2025 [facility] Start: 03-03-2025 [facility] Start: 03-03-2025 [facility] Start: 03-03-2025 [facility] Start: 03-02-2025 [facility] Start: 03-02-2025 [facility] Start: 03-02-2025 [facility] Start: 03-02-2025 [facility] Start: 03-02-2025 [facility] Start: 03-02-2025 Provision of overbed trapeze [facility] Start: 03-02-2025 Recommendation to co ntinue with treatment [facility] Start: 03-02-2025 End: 03-02-2025 [facility] Start: 03-02-[address] [facility] Start: 03-02-2025 Assessment of risk o f venous thromboembolism [facility] Start: 03-02-2025 Catheterization of vein [facility] Start: 03-02-2025 Exercises [facility] Start: 03-02-2025 Following clinical p athway protocol [facility] Start: 03-02-2025 Introduction of urin clay catheter [facility] Start: 03-02-2025 Measuring intake and output [facility] Start: 03-02-2025 Neurovascular assessment [facility] Start: 03-02-2025 Patient education [facility] Start: 03-02-2025 Procedure discontinued [facility] Start: 03-02-2025 Provision of activit y privileges [facility] Start: 03-02-2025 Referral to occupati onal therapist [facility] Start: 03-02-2025 Referral to service [facility] Start: 03-02-2025 Vital signs measurements [facility] Start: 03-02-2025 Wound care [facility] Start: 03-01-2025 Application of ice c ollar, cap or bag [facility] Start: 03-01-2025 Assessment of risk o f venous thromboembolism [facility] Start: 03-01-2025 Skin care [facility] Start: 03-01-2025 [facility] Start: 03-01-2025 Assessment of risk o f venous thromboembolism [facility] Start: 03-01-2025 Catheterization of vein [facility] Start: 03-01-2025 Consultation [facility] Start: 03-01-2025 Consultation for treatment [facility] Start: 03-01-2025 Following clinical p athway protocol [facility] Start: 03-01-2025 Inhalation therapy procedure [facility] Start: 03-01-2025 Insertion of cathete r into peripheral vein [facility] Start: 03-01-2025 Measuring intake and output [facility] Start: 03-01-2025 Oxygen therapy [facility] Start: 03-01-2025 Providing care accor ding to standard [facility] Start: 03-01-2025 Referral to occupati onal therapist [facility] Start: 03-01-2025 Referral to service [facility] Start: 03-01-2025 [facility] Start: 03-01-2025 Hospital admission, emergency, from emergency room, medical nature [facility] Start: 03-01-2025 Verification routine [facility] Start: 03-01-2025 Admission procedure [facility] Start: 03-01-2025 End: 03-02-2025 [facility] Start: 03-01-2025 [facility] Start: 02-18-2025 End: 02-18-2025 Patient encounter procedure 02/18/2025 10:20 AM EDT Office Visit Internal Medicine [place] [address] [place] [address] Mariposa Salinas APRN.[facility] [address] [place] [address] ear lavage [facility] [place] Comment on above: ear lavage Start: 02-04-2025 End: 05-06-2025 Thyrotropin [Units/volume] in Serum or Plasma THYROID STIMULATING HORMONE Lab Routine Expected: 02/04/2025, Expires: 05/06/2025 [facility] Work Phone: Comment on above: Expected: 02/04/2025 , Expires: 05/06/2025 Start: 02-04-2025 End: 02-04-2025 Patient encounter procedure 02/04/2025 11:20 AM EDT Office Visit Internal Medicine [place] [address] [place] [address] Mariposa Salinas APRN.POSTAL INSPECTOR [address] [facility] [place] [address] 3 month follow up Internal Medicine [place] Comment on above: 3 month follow up Start: 01-24-2025 End: 01-24-2025 Patient encounter procedure 01/24/2025 12:30 PM EST Appointment [facility] [address] [place] [address] MRI BRAIN W QUANT WO IVCON, Cognitive [...] AM EST Office Visit Urology [address] [place] [address] Tom Baltazar PA-C [address] [place] [address] 1 YR F/U Urology Comment on above: 1 YR F/U Start: 12-23-2024 End: 12-23-2024 Patient encounter procedure 12/23/2024 10:00 AM EST Office Visit Urology [address] [place] [address] Tom Baltazar PA-C [address] [place] [address] Self-catheterizes urinary bladder [Z78.9] Urology Comment on above: Self-catheterizes ur inary bladder [Z78.9] Start: 12-10-2024 End: 12-10-2024 Patient encounter procedure 12/10/2024 12:30 PM EST Office Visit Geriatrics [address] [place] [address] Dillan Santiago MD [address] [place] [address] Self-catheterizes urinary bladder [Z78.9] Geriatrics Comment on above: Self-catheterizes ur inary bladder [Z78.9] Start: 11-19-2024 Advance Directive Discussion Advance Directive Discussion [facility] Start: 11-19-2024 Medicare Advantage A nnual Wellness Visit Medicare Advantage Annual Wellness Visit [facility] Start: 11-05-2024 End: 02-04-2025 CBC panel - Blood by Automated count COMPLETE BLOOD COUNT Lab Routine Concern about memory Expected: 11/05/2024, Expires: 02/04/2025 [facility] Comment on above: Expected: 11/05/2024 , Expires: 02/04/2025 Start: 11-05-2024 End: 02-04-2025 Cobalamin (Vitamin B12) [Mass/volume] in Serum or Plasma VITAMIN B12 Lab Routine Concern about memory Expected: 11/05/2024, Expires: 02/04/2025 [facility] Comment on above: Expected: 11/05/2024 , Expires: 02/04/2025 Start: 11-05-2024 End: 02-04-2025 Comprehensive metabolic 2000 panel - Serum or Plasma COMPREHENSIVE METABOLIC PANEL Lab Routine Concern about memory Lipid screening Expected: 11/05/2024, Expires: 02/04/2025 [facility] Comment on above: Expected: 11/05/2024 , Expires: 02/04/2025 Start: 11-05-2024 End: 02-04-2025 Lipid 1996 panel - Serum or Plasma LIPID PANEL BASIC Lab Routine Lipid screening Expected: 11/05/2024, Expires: 02/04/2025 [facility] Work Phone: Comment on above: Expected: 11/05/2024 , Expires: 02/04/2025 Start: 11-05-2024 End: 02-04-2025 Thyrotropin [Units/volume] in Serum or Plasma THYROID STIMULATING HORMONE Lab Routine Concern about memory Hypothyroidism, unspecified type Expected: 11/05/2024, Expires: 02/04/2025 [facility] Comment on above: Expected: 11/05/2024 , Expires: 02/04/2025 Start: 11-05-2024 End: 02-04-2025 Thyroxine (T4) free [Mass/volume] in Serum or Plasma T4 FREE/FREE THYROXINE Lab Routine Concern about memory Hypothyroidism, unspecified type Expected: 11/05/2024, Expires: 02/04/2025 [facility] Comment on above: Expected: 11/05/2024 , Expires: 02/04/2025 Start: 11-05-2024 End: 02-04-2025 Triiodothyronine (T3) Free [Mass/volume] in Serum or Plasma T3, FREE Lab Routine Concern about memory Hypothyroidism, unspecified type Expected: 11/05/2024, Expires: 02/04/2025 [facility] Comment on above: Expected: 11/05/2024 , Expires: 02/04/2025 Start: 07-20-2024 Covid-19 Vaccine ( season) Covid-19 Vaccine ( season) [facility] Start: 07-20-2024 Influenza vaccination Influenza Vacc ine (#1) [facility] Start: 02-09-2024 Patient referral [facility] Work Phone: Start: 01-17-2024 Radiologic examinati on of knee XR knee LT 4V [facility] Start: 02-28-2020 Pneumococcal Vaccine : 50+ (2 of 2 - PCV) Pneumococcal Vaccine: 50+ (2 of 2 - PCV) [facility] Start: 2015 RSV Vaccine (1 - 1-d ose 75+ series) RSV Vaccine (1 - 1-dose 75+ series) [facility] Start: 01-14-2009 Shingrix Vaccine (2 of 3) Bran grix Vaccine (2 of 3) [facility] Start: 2005 Screening for osteoporosis Bone Dens ity Screening [facility] Start: 1985 Diabetes Screening Diabetes Screenin g [facility] Start: 1959 Urine microalbumin profile DTa P,Tdap,Td Vaccine (1 - Tdap) [facility] Start: 1958 Anxiety Screening Anxiety Screening [facility] Start: 1958 Depression Screening Depression Scre ening [facility] Anion gap in Serum o r Plasma [facility] Anion gap in Serum o r Plasma [facility] Anion gap in Serum o r Plasma [facility] Anion gap in Serum o r Plasma [facility] Anion gap in Serum o r Plasma [facility] Bacteria identified in Urine by Culture BACTERIAL CULTURE, URINE Microbiology Routine Urinary frequency Ordered: 02/19/2025 [facility] Work Phone: Comment on above: Ordered: 02/19/2025 BUN/Creatinine ratio [facility] BUN/Creatinine ratio [facility] BUN/Creatinine ratio [facility] BUN/Creatinine ratio [facility] BUN/Creatinine ratio [facility] Calcium [Mass/volume ] in Serum or Plasma [facility] Calcium [Mass/volume ] in Serum or Plasma [facility] Calcium [Mass/volume ] in Serum or Plasma [facility] Calcium [Mass/volume ] in Serum or Plasma [facility] Calcium [Mass/volume ] in Serum or Plasma [facility] Carbon dioxide, tota l [Moles/volume] in Central venous blood [facility] Carbon dioxide, tota l [Moles/volume] in Central venous blood [facility] Carbon dioxide, tota l [Moles/volume] in Central venous blood [facility] Carbon dioxide, tota l [Moles/volume] in Central venous blood [facility] Carbon dioxide, tota l [Moles/volume] in Central venous blood [facility] Creatinine [Mass/vol ume] in Serum or Plasma [facility] Creatinine [Mass/vol ume] in Serum or Plasma [facility] Creatinine [Mass/vol ume] in Serum or Plasma [facility] Creatinine [Mass/vol ume] in Serum or Plasma [facility] Creatinine [Mass/vol ume] in Serum or Plasma [facility] End: 05-06-2026 Echocardiography ECHO Cardiology [facility] Acute heart failure, unspecified heart failure type (HCC) 1 Occurrences starting 05/06/2025 until 05/06/2026 [facility] Work Phone: Comment on above: 1 Occurrences starti ng 05/06/2025 until 05/06/2026 Erythrocyte mean corpuscular volume determination [facility] Erythrocyte mean corpuscular volume determination [facility] Erythrocyte mean corpuscular volume determination [facility] Erythrocyte mean corpuscular volume determination [facility] Erythrocyte mean corpuscular volume determination [facility] Glucose [Mass/volume ] in Serum or Plasma [facility] Glucose [Mass/volume ] in Serum or Plasma [facility] Glucose [Mass/volume ] in Serum or Plasma [facility] Glucose [Mass/volume ] in Serum or Plasma [facility] Glucose [Mass/volume ] in Serum or Plasma [facility] Hematocrit [Volume Fraction] of Blood [facility] Hematocrit [Volume Fraction] of Blood [facility] Hematocrit [Volume Fraction] of Blood [facility] Hematocrit [Volume Fraction] of Blood [facility] Hematocrit [Volume Fraction] of Blood [facility] Hemoglobin [Mass/vol ume] in Blood [facility] Hemoglobin [Mass/vol ume] in Blood [facility] Hemoglobin [Mass/vol ume] in Blood [facility] Hemoglobin [Mass/vol ume] in Blood [facility] Hemoglobin [Mass/vol ume] in Blood [facility] Leukocytes [#/volume ] in Blood [facility] Leukocytes [#/volume ] in Blood [facility] Leukocytes [#/volume ] in Blood [facility] Leukocytes [#/volume ] in Blood [facility] Leukocytes [#/volume ] in Blood [facility] Mean corpuscular hemoglobin concentration determination [facility] Mean corpuscular hemoglobin concentration determination [facility] Mean corpuscular hemoglobin concentration determination [facility] Mean corpuscular hemoglobin concentration determination [facility] Mean corpuscular hemoglobin concentration determination [facility] Mean corpuscular hemoglobin determination [facility] Mean corpuscular hemoglobin determination [facility] Mean corpuscular hemoglobin determination [facility] Mean corpuscular hemoglobin determination [facility] Mean corpuscular hemoglobin determination [facility] Measurement of renal function [facility] Measurement of renal function [facility] Measurement of renal function [facility] Measurement of renal function [facility] Measurement of renal function [facility] End: 01-09-2026 MR Brain WO contrast MRI BRAIN W QUANT WO IVCON Radiology Routine Cognitive impairment, mild, so stated 1 Occurrences starting 12/10/2024 until 01/09/2026 [facility] Work Phone: Comment on above: 1 Occurrences starti ng 12/10/2024 until 01/09/2026 End: 01-09-2026 MR Unspecified body region 3D post processing MRI 3D BRAIN QUANT Radiology Routine Cognitive impairment, mild, so stated 1 Occurrences starting 12/10/2024 until 01/09/2026 [facility] Comment on above: 1 Occurrences starti ng 12/10/2024 until 01/09/2026 Neutrophil count [facility] Neutrophil count [facility] Neutrophil count [facility] Neutrophil count [facility] Neutrophil count [facility] Neutrophil percent differential count [facility] Neutrophil percent differential count [facility] Neutrophil percent differential count [facility] Neutrophil percent differential count [facility] Neutrophil percent differential count [facility] Patient Education [facility] Work Phone: Patient referral [facility] Work Phone: Platelets [#/volume] in Blood [facility] Platelets [#/volume] in Blood [facility] Platelets [#/volume] in Blood [facility] Platelets [#/volume] in Blood [facility] Platelets [#/volume] in Blood [facility] Potassium measurement [facility] Potassium measurement [facility] Potassium measurement [facility] Potassium measurement [facility] Potassium measurement [facility] Red blood cell count [facility] Red blood cell count [facility] Red blood cell count [facility] Red blood cell count [facility] Red blood cell count [facility] Red cell distributio n width determination [facility] Red cell distributio n width determination [facility] Red cell distributio n width determination [facility] Red cell distributio n width determination [facility] Red cell distributio n width determination [facility] Removal impacted cer umen irrigation/lvg unilat AMBULATORY EAR LAVAGE/IRRIGATION Procedures Routine Impacted cerumen of right ear Ordered: 02/18/2025 [facility] Work Phone: Comment on above: Ordered: 02/18/2025 Serum chloride measurement [facility] Serum chloride measurement [facility] Serum chloride measurement [facility] Serum chloride measurement [facility] Serum chloride measurement [facility] Sodium measurement [facility] Sodium measurement [facility] Sodium measurement [facility] Sodium measurement [facility] Sodium measurement [facility] Urea nitrogen [Mass/volume] in Serum or Plasma [facility] Urea nitrogen [Mass/volume] in Serum or Plasma [facility] Urea nitrogen [Mass/volume] in Serum or Plasma [facility] Urea nitrogen [Mass/volume] in Serum or Plasma [facility] Urea nitrogen [Mass/volume] in Serum or Plasma [facility] Urine culture [facility] Immunizations Immunization Date Immunization Notes Care Provider [facility] 10-31-2022 influenza (aIIV4) vaccine, age 65+ yr, quadrivalent, PF (FLUAD QUAD) Dillan Santiago MD Work Phone: [facility] 10-31-2022 influenza virus vacc ine, unspecified formulation Mariposa Salinas APRN.POSTAL INSPECTOR Work Phone: [facility] 10-06-2021 influenza (aIIV4) vaccine, age 65+ yr, quadrivalent, PF (FLUAD QUAD) Dillan Santiago MD Work Phone: [facility] 02-27-2019 pneumococcal polysaccharide vaccine, [address] Vadim Florence DO Work Phone: [facility] 08-19-2009 pneumococcal conjuga te vaccine, [address] Vadim Florence DO Work Phone: [facility] 11-19-2008 zoster vaccine, live Dillan Santiago MD Work Phone: [facility] Payers Date Payer Category Payer Self-pay [id number] 2023 Medicare [facility] MEDICARE [facility] MEDICARE ADVANTAGE PPO [id number] 2023-Present [phone] [address] [address] [place] [address] PPO [id number] 2023 Medicare (Managed Care) [facility] MEDI CARE ADVANTAGE PPO [id number] 2023 Medicare [id number] Medicare [id number] Medicare Medicare Part A & B [id number] Unknown [place] [employer] [id number] Unknown [id number] Unknown [id number]. 2.462 Unknown [id number]. 2.462 Unknown [id number]. 2.462 Unknown [id number]. 2.462 Unknown [id number]. 2.462 Unknown [id number]. 2.462 Unknown [id number]. 2.462 Unknown [id number] [id number]. 2.462 Unknown [id number] [id number]. 2.462 Unknown [id number] [id number]. 2.462 Unknown [id number] [id number]. 2.462 Unknown [id number] [id number]. 2.462 Unknown [id number] [id number]. 2.462 Unknown [id number] [id number]. 2.462 Unknown [id number]. 2.462 Social History Date Type Detail Facility Tobacco smoking status NHIS Unknown if ever smoked [facility] Work Phone: Start: 11-04-2019 Never Smoker [facility] Start: 10-29-2019 No History [facility] Start: 10-29-2019 up to date / s hingle up to date [facility] Start: 1940 Sex Assigned At Female [facility] Start: 11-05-2024 End: 05-17-2025 Tobacco smoking status NHIS Never smoked tobacco [facility] Start: 11-05-2024 Tobacco use and exposure Smokeless tobacco non-user [facility] Start: 11-05-2024 End: 07-16-2025 Alcoholic beverage intake Lifetime non-drinker (finding) [facility] Start: 11-05-2024 End: 04-17-2025 History of Social function [facility] Start: 11-05-2024 End: 04-17-2025 Tobacco use panel [facility] National Score (1-100), lower number is lower risk 72 [facility] Start: 1940 Sex assigned at Not on file [facility] Start: 12-10-2024 Education 15 [facility] Start: 03-01-2025 Tobacco smoking status NHIS Tobacco smoking consumption unknown (finding) [facility] Start: 03-01-2025 End: 03-12-2025 Sex Female (finding) [facility] Has the electric, gas, oil, or water company threatened to shut off services in your home in past 12Mo No [facility] Are you now , , , , never or living with a partner? [facility] How often to you hav e a drink containing alcohol? Never [facility] How hard is it for you to pay for the very basics like food, housing, medical care, and heating Not very hard [facility] Do you feel stress - tense, restless, nervous, or anxious, or unable to sleep at night because your mind is troubled all the time - these days [OSQ] Very much [facility] (I/We) worried whether (my/our) food would run out before (I/we) got money to buy more. Never true [facility] NEGATED: Highlighted row Not [facility] Medical Equipment Procedure Code Equipment Code Equipment Origin al Text Equipment Identifier Dates ORIF, hip, using Gamma nail ([id number]) Orthopaedic bone screw, non-bioabsorbable, sterile [id number] FDA Start: 03-02-2025 ORIF, hip, using Gamma nail ([id number]) Femur nail, sterile [id number] FDA Start: 03-02-2025 Goals Date Patient Goal Desired Activity /State Functional Status Date Assessment Result Facility 04-17-2025 Total score [AUDIT-C] 0 04/17/20 25 9:21 AM EDT User, Mychart [facility] 04-17-2025 How often to you hav e a drink containing alcohol? Never 04/17/2025 9:21 AM EDT User, Josehart Never [facility] 04-17-2025 Functional status Patient does n ot drink 04/17/2025 9:21 AM EDT User, Lynne Patient does not drink [facility] 04-17-2025 How often do you hav e 6 or more drinks on 1 occasion? Never 04/17/2025 9:21 AM EDT UserLynne Never [facility] 03-19-2025 Functional status Chair [facility] Work Phone: 03-18-2025 Functional status Tolerates Activity Well [facility] Work Phone: 03-12-2025 Functional status Ambulates [facility] Work Phone: 03-11-2025 Functional status Tolerates Activity Fair [facility] Work Phone: 03-04-2025 Functional status Back to bed [facility] Work Phone: Mental Status Date Assessment Result Facility 05-17-2025 Cognitive function Voice/Name [facility] Work Phone: 03-19-2025 Cognitive function Voice/Name [facility] Work Phone: 03-12-2025 Cognitive function Cooperative [facility] Work Phone: 03-11-2025 Cognitive function Voice/Name [facility] Work Phone: 03-04-2025 Cognitive function Voice/Name [facility] Work Phone: 01-17-2025 Cognitive function Voice/Name [facility] Work Phone: Clinical Notes 11-05-2024 to 06-18-2025 Telephone Encounter - Gabi Mcelroy RN - 06/18/2025 1:43 PM EDTTelephone Encounter - Gabi Mcelroy RN - 06/18/2025 1:43 PM EDTTelephone Encounter - Dillan Santiago MD - 06/18/2025 1:35 PM EDT Note Date & Type Note Facility 06-18-2025 Telephone encount er Note Called and left a detailed voicemail notifying Brissa from [facility] of providers message. Clinic phone number was left in case she had any questions. Gabi Mcelroy RN [facility] 06-18-2025 Miscellaneous Notes Formattin g of this note might be different from the original. Called and left a detailed voicemail notifying Brissa from [facility] of providers message. Clinic phone number was left in case she had any questions. Gabi Mcelroy RN Noted and agree Regards, Dillan Santiago MD Brissa from [facility] called in to let provider know that she went out to recertify the Pt. She reports nursing will be seeing the Pt once a week for 6 weeks to monitor a stage 2 ulcer on the L buttock. She states it is 0.3 x 0.3, so it is almost healed. They are just putting Triad cream on it now. Gabi Mcelroy RN documented in this encounter [facility] 06-18-2025 Telephone encount er Note Noted and agree Regards, Dillan Santiago MD [facility] 06-17-2025 Telephone encount er Note Brissa from [facility] called in to let provider know that she went out to recertify the Pt. She reports nursing will be seeing the Pt once a week for 6 weeks to monitor a stage 2 ulcer on the L buttock. She states it is 0.3 x 0.3, so it is almost healed. They are just putting Triad cream on it now. Gabi Mcelroy RN [facility] 06-03-2025 Note HNO ID: [id number] Author: DILLAN SANTIAGO MD Service: ? Author Type: Physician Type: Progress Notes Filed: 06/03/2025 12:31 Note Text: Reason for Visit Follow up HPI Michaela Brandt is a 84-year-old female, with a history of hip fracture and recurrent UTIs, presenting for follow-up. Michaela is currently residing in an apartment and receiving home health services, including weekly visits from a skilled nurse, PT, and OT. She reports that the frequency of these services has been reduced due to cost concerns. Her daughter, who is present and providing history, notes that the skilled nurse has extended services for a few more weeks. Michaela sustained a hip fracture, which was repaired surgically. She reports that the surgery was painful but states that the hip is no longer causing her problems. She is currently using a wheelchair for mobility. Michaela has a history of recurrent UTIs and is currently performing self-catheterization four times a day. Her daughter notes that Michaela had a UTI about a month ago, which was treated at [facility]. Michaela expresses reluctance to continue self-catheterization due to the risk of introducing infections and is considering a suprapubic catheter as an alternative. Michaela has not yet undergone an echocardiogram that was previously scheduled. She expresses a desire to reschedule the appointment. Michaela is also experiencing issues with thickened toenails, which are causing discomfort when wearing shoes. She has an appointment with a senior communications specialist next month for evaluation and treatment. Michaela is currently taking clonazepam, half a tablet in the morning and a full tablet in the evening, to help with sleep. She also takes vitamins C and D. She expresses concern about the number of medications she is taking. Michaela is facing legal issues with her sister, who is seeking guardianship. Michaela's daughter, who currently holds power of business attorney, is trying to prevent this. Michaela expresses a desire to maintain her independence and make her own decisions. Social History Tobacco Use Smoking status: Never Smokeless tobacco: Never Vaping Use Vaping status: Never Used Substance Use Topics Alcohol use: Never Drug use: Never Past medical history, appointments, medications, allergies reviewed. Pertinent Lab/Diagnostic Studies are reviewed and discussed today Current Outpatient Medications: sodium chloride 0.9 % IRRIGATION furosemide (LASIX) 20 mg tablet apixaban (ELIQUIS) 5 mg tab(s) busPIRone (BUSPAR) 5 mg tablet citalopram (CELEXA) 20 mg tablet ascorbic acid (VITAMIN C ORAL) donepezil (ARICEPT) 10 mg tablet Catheter (SELF-CATHETER, FEMALE) 14 Fr misc levothyroxine (EUTHYROX) 50 mcg tablet clonazePAM (KLONOPIN) 0.5 mg tablet clonazePAM (KLONOPIN) 0.5 mg tablet Health Maintenance DTaP,Tdap,Td Vaccine(1 - Tdap) Bone Density Screening Shingrix Vaccine(2 of 3) Pneumococcal Vaccine: 50+(2 of 2 - PCV) Covid-19 Vaccine( season) Advance Directive Discussion Medicare Advantage Annual Wellness Visit@ Review Of Systems Genitourinary: (+) urinary retention Musculoskeletal: (+) toe discomfort with shoes, (-) hip pain, (-) toe pain Neurological: (+) confusion, (-) numbness Physical Exam BP 134/71 Pulse 64 Resp 16 Wt 54.2 kg (119 lb 6.4 oz) LMP (LMP Unknown) SpO2 95% GENERAL: NAD, alert and oriented. SKIN: unremarkable, no rash or skin lesions. HEAD: normocephalic. EYES: PERRLA, EOMI, conjunctiva clear. LUNGS: Clear to auscultation bilaterally, no wheezes/rhonchi/rales. HEART: Regular rate and rhythm, no murmurs. No ectopy. EXTREMITIES: Onychomycosis noted, with thickened nails and toe deformities. trace edema. NEURO: Awake, alert and oriented x3, cranial nerves II-XII grossly intact, normal gait, no involuntary motions. Assessment and Plan 1. 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 - Reschedule echocardiogram to assess cardiac function. - Monitor cognitive status closely. 2. Recurrent UTI (N39.0) Self-catheterizes urinary bladder (Z78.9) Urinary retention (R33.9) Patient has a history of recurrent UTIs, most recently treated at [facility]. Currently self-catheterizing four times daily, which increases the risk of infection. - Discussed risks and benefits of suprapubic catheter placement to reduce infection risk. - Consult urology for evaluation and potential suprapubic catheter placement. - Continue current self-catheterization regimen until further evaluation. 3. Anxiety and depression (F41.9) Patient is currently taking clonazepam, 0.5 mg in the morning and 1 mg in the evening, to manage anxiety and assist with sleep. - Refill (more content not included)... [facility] 06-03-2025 History of Presen t illness Narrative Reason for Visit Follow up HPI Michaela Brandt is a 84-year-old female, with a history of hip fracture and recurrent UTIs, presenting for follow-up. Michaela is currently residing in an apartment and receiving home health services, including weekly visits from a skilled nurse, PT, and OT. She reports that the frequency of these services has been reduced due to cost concerns. Her daughter, who is present and providing history, notes that the skilled nurse has extended services for a few more weeks. Michaela sustained a hip fracture, which was repaired surgically. She reports that the surgery was painful but states that the hip is no longer causing her problems. She is currently using a wheelchair for mobility. Michaela has a history of recurrent UTIs and is currently performing self-catheterization four times a day. Her daughter notes that Michaela had a UTI about a month ago, which was treated at [facility]. Michaela expresses reluctance to continue self-catheterization due to the risk of introducing infections and is considering a suprapubic catheter as an alternative. Michaela has not yet undergone an echocardiogram that was previously scheduled. She expresses a desire to reschedule the appointment. Michaela is also experiencing issues with thickened toenails, which are causing discomfort when wearing shoes. She has an appointment with a senior communications specialist next month for evaluation and treatment. Michaela is currently taking clonazepam, half a tablet in the morning and a full tablet in the evening, to help with sleep. She also takes vitamins C and D. She expresses concern about the number of medications she is taking. Michaela is facing legal issues with her sister, who is seeking guardianship. Michaela's daughter, who currently holds power of business attorney, is trying to prevent this. Michaela expresses a desire to maintain her independence and make her own decisions. Social History Tobacco Use Smoking status: Never Smokeless tobacco: Never Vaping Use Vaping status: Never Used Substance Use Topics Alcohol use: Never Drug use: Never Past medical history, appointments, medications, allergies reviewed. Pertinent Lab/Diagnostic Studies are reviewed and discussed today Current Outpatient Medications: sodium chloride 0.9 % IRRIGATION furosemide (LASIX) 20 mg tablet apixaban (ELIQUIS) 5 mg tab(s) busPIRone (BUSPAR) 5 mg tablet citalopram (CELEXA) 20 mg tablet ascorbic acid (VITAMIN C ORAL) donepezil (ARICEPT) 10 mg tablet Catheter (SELF-CATHETER, FEMALE) 14 Fr misc levothyroxine (EUTHYROX) 50 mcg tablet clonazePAM (KLONOPIN) 0.5 mg tablet clonazePAM (KLONOPIN) 0.5 mg tablet Health Maintenance DTaP,Tdap,Td Vaccine(1 - Tdap) Bone Density Screening Shingrix Vaccine(2 of 3) Pneumococcal Vaccine: 50+(2 of 2 - PCV) Covid-19 Vaccine(2023- season) Advance Directive Discussion Medicare Advantage Annual Wellness Visit@ Review Of Systems Genitourinary: (+) urinary retention Musculoskeletal: (+) toe discomfort with shoes, (-) hip pain, (-) toe pain Neurological: (+) confusion, (-) numbness Physical Exam BP 134/71 Pulse 64 Resp 16 Wt 54.2 kg (119 lb 6.4 oz) LMP (LMP Unknown) SpO2 95% GENERAL: NAD, alert and oriented. SKIN: unremarkable, no rash or skin lesions. HEAD: normocephalic. EYES: PERRLA, EOMI, conjunctiva clear. LUNGS: Clear to auscultation bilaterally, no wheezes/rhonchi/rales. HEART: Regular rate and rhythm, no murmurs. No ectopy. EXTREMITIES: Onychomycosis noted, with thickened nails and toe deformities. trace edema. NEURO: Awake, alert and oriented x3, cranial nerves II-XII grossly intact, normal gait, no involuntary motions. Assessment and Plan 1. 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 - Reschedule echocardiogram to assess cardiac function. - Monitor cognitive status closely. 2. Recurrent UTI (N39.0) Self-catheterizes urinary bladder (Z78.9) Urinary retention (R33.9) Patient has a history of recurrent UTIs, most recently treated at [facility]. Currently self-catheterizing four times daily, which increases the risk of infection. - Discussed risks and benefits of suprapubic catheter placement to reduce infection risk. - Consult urology for evaluation and potential suprapubic catheter placement. - Continue current self-catheterization regimen until further evaluation. 3. Anxiety and depression (F41.9) Patient is currently taking clonazepam, 0.5 mg in the morning and 1 mg in the evening, to manage anxiety and assist with sleep. - Refill clonazepam prescription. - Monitor for any side effects or changes in mental status. 4. Acute heart failure, unspecified heart failure type (HCC) (I50.9) Patient has a history of heart failure; recent echocardiogram was scheduled but not completed. - Reschedule echocardiogram to assess current cardiac function. - Monitor for signs of fluid overload or worsening heart failure. 5. Onychomycosis (B35.1) Thickened nail (L60.2) Acquired deformity of toe, unspecified laterality (M20.60) IGTN (ingrowing toe nail) (L60.0) Examination reveals thickened nails and toe deformities consistent with onychomycosis. No ingrown toenails observed. - Document findings in patient's chart. - Patient has a podiatry appointment scheduled for June to address nail issues. Voice recognition software was used to compose this office note. Please excuse any unintended typographical errors. Recording using ambient [employer] software for draft documentation of the visit was discussed with the patient/authorized sales representative wire rope; all questions welcomed and answered. Patient/authorized sales representative wire rope agreed to proceed Spent more than 40 mins face to face with patient Dillan Santiago MD documented in this encounter [facility] 06-03-2025 Instructions Dillan Santiago MD - 06/03/2025 12:05 PM EDT We discussed your urinary health and recurrent urinary tract infections (UTIs): - You are currently self-catheterizing four times a day, which increases the risk of recurrent infections. - We discussed the option of a suprapubic catheter to reduce the frequency of infections. This would involve a minor outpatient procedure where a catheter is placed through the abdomen into the bladder. - The procedure would require a short recovery period (2-3 days) and minimal pain management. - The catheter would need periodic maintenance, with follow-ups potentially every 1-3 months. - This option may be more comfortable and reduce the risk of infections compared to self-catheterization or a Lizarraga catheter. - You expressed interest in pursuing the suprapubic catheter as it may be more beneficial for your health and easier to manage. - I will place a referral to urology for further evaluation and to discuss the procedure in detail. We discussed your toenail health: - You have onychomycosis (thickened, discolored toenails) and toe deformities caused by the nail growth. - This condition requires specialized care from a senior communications specialist, as regular nail trimming is not sufficient. - You already have an appointment scheduled with podiatry in June. At that visit, they will assess your nails and provide appropriate treatment. - I documented the findings in your chart to ensure the senior communications specialist is aware of the condition and can address it during your appointment. We discussed your heart health: - You previously declined a scheduled echocardiogram to assess your heart function. - You agreed to reschedule the echocardiogram, which can be done at this clinic. This test will help us monitor your heart health. We discussed your medications: - I refilled your prescription for Clonazepam. You are taking half a tablet in the morning and a full tablet in the evening to help with sleep. - Please continue taking your medications as prescribed. Next steps: - I will send a referral to urology for evaluation of the suprapubic catheter. - Please attend your podiatry appointment in June for nail care and treatment of onychomycosis. - We will assist in rescheduling your echocardiogram. - Continue self-catheterization as instructed until you meet with the urologist. Monitor for signs of infection, such as fever, increased confusion, or changes in urine color or odor, and notify us immediately if these occur. If you have any questions or concerns, please contact our office. documented in this encounter [facility] 05-26-2025 Telephone encount er Note Forms completed and faxed back to # provided: [phone]. Mike Guo MA [facility] 05-26-2025 Miscellaneous Notes Formattin g of this note might be different from the original. Forms completed and faxed back to # provided: [phone]. Mike Guo MA Forms given to PCP for review/signature. Mike Guo MA Patient's daughter dropped off forms that need filled out [facility], att [phone]. Forms given to nurse. Please assist. documented in this encounter [facility] 05-20-2025 Telephone encount er Note Forms given to PCP for review/signature. Mike Guo MA [facility] 05-20-2025 Telephone encount er Note Patient's daughter dropped off forms that need filled out and faxed to Hermax Nunez, ATTN Nory, att [phone]. Forms given to nurse. Please assist. [facility] 05-17-2025 Discharge summary [facility] 05-12-2025 Telephone encounter Note Phoned Ivis and given provider's message below. Ivis states she believes pt is taking the lasix as ordered 2 x's a week. Ivis is not at work today but will double check when she goes back and call back if there has been a change in how pt is taking the lasix. [facility] 05-12-2025 Miscellaneous Notes Phoned Ivis and [...] a week? Regards, Dillan Santiago MD Ivis- [facility] reports pt has fine crackles in the bases of her lungs again. Reports patient denies Shortness of Breath, and the swelling has decreased. No fever. Otherwise, besides pt's anxiety she feels great. Asking if pcp wants to order a CXR? If pcp wants to order a CXR please fax order to Jose M Zheng at fax # [phone] Please advise and phone Ivis with reply: [phone] documented in this encounter [facility] 05-11-2025 Telephone encounter Note Do not want chest xr just yet Is she taking her lasix as ordered, 2 times a week? Dillan Patel MD [facility] 05-08-2025 Telephone encounter Note Daughter Maribeth notified. [facility] 05-08-2025 Miscellaneous Notes Daughter Maribeth notified. [...] the next couple months. Dillan Patel MD documented in this encounter [facility] 05-08-2025 Telephone encounter Note ----- Message [...] the next couple months. Dillan Patel MD [facility] 05-07-2025 Telephone encounter Note The following approved medication requests have been transmitted electronically. Requested Prescriptions Signed Prescriptions Disp Refills busPIRone (BUSPAR) 5 mg tablet 60 tablet 3 Sig: Take 1 tablet by mouth two times a day. Authorizing Provider: DILLAN SANTIAGO MA [facility] 05-07-2025 Miscellaneous Notes The following approved medication requests have been transmitted electronically. Requested Prescriptions Signed Prescriptions Disp Refills busPIRone (BUSPAR) 5 mg tablet 60 tablet 3 Sig: Take 1 tablet by mouth two times a day. Authorizing Provider: DILLAN SANTIAGO MA I started her on buspar. Regards, Dillan Santiago MD Gabi PT with [facility] calls to let provider know that patient [...] Kecia Red RN documented in this encounter [facility] 05-07-2025 Telephone encounter Note I[facility]- [facility] reports pt has fine crackles in the bases of her lungs again. Reports patient denies Shortness of Breath, and the swelling has decreased. No fever. Otherwise, besides pt's anxiety she feels great. Asking if pcp wants to order a CXR? If pcp wants to order a CXR please fax order to Jose M Zheng at fax # [phone] Please advise and phone Ivis with reply: [phone] [facility] 05-06-2025 Telephone encounter Note I started her on buspar. Regards, Dillan Santiago MD T [facility] 05-06-2025 Telephone encounter Note Gabi PT with [facility] calls to let provider know that patient [...] 04/20/2025. Please review and advise. Kecia Red, ZACHARIAH T [facility] 05-06-2025 Note HNO ID: [id number] Author: DILLAN SANTIAGO MD Service: ? Author [...] is currently receiving home care services, including custodial, physical therapy, and occupational therapy. She has aides assisting her from [phone] and [phone] daily. Due to financial constraints, the family [...] mg tablet Catheter (SELF-CATHETER, FEMALE) 14 Fr [facility] Health Maintenance DTaP,Tdap,Td Vaccine(1 - Tdap) Bone [...] self-catheterization. Patient expresses (more content not included)... [facility] 05-06-2025 History of Presen t illness Narrative Reason for Visit Follow up HPI Michaela Brandt is a 84-year-old female, with a history of urinary retention requiring self-catheterization, presenting for follow-up on lower extremity edema and urinary catheter management. She is accompanied by her daughter, who is providing additional history. Michaela is currently receiving home care services, including custodial, physical therapy, and occupational therapy. She has aides assisting her from [phone] and [phone] daily. Due to financial constraints, the family [...] mg tablet Catheter (SELF-CATHETER, FEMALE) 14 Fr [facility] Health Maintenance DTaP,Tdap,Td Vaccine(1 - Tdap) Bone [...] of 6 months. - Prescription sent to [facility] pharmacy for 3 months supply. 5. Edema, [...] excuse any unintended typographical errors. Recording using [employer] software for draft documentation of the visit was discussed with the patient/authorized sales representative wire rope; all questions welcomed and answered. Patient/authorized sales representative wire rope agreed to proceed Dillan Santiago MD documented in this encounter [facility] 05-04-2025 Telephone encounter Note Detailed message on secure [employer]. Pamela Power MA May 04, 2025 4:11 PM [facility] 05-04-2025 Miscellaneous Notes Detailed message on secure voicemail. Pamela Power MA May 04, 2025 4:11 PM Verbal ok to order all these labs chest x-ray, BNP, CMP, and A1C for patient? Regards, Dillan Santiago MD Brittni with [facility] calls in regards to TE from 04/24: Solange Craig RN MG 04/24/25 11:13 AM Note [facility] is calling due to she saw patient [...] reports nurse saw pt on Tuesday 04/24. Birttni is still requesting VO for the above labs and CXR. Nisha Clayton LPN documented in this encounter [facility] 05-04-2025 Telephone encounter Note I dont usually do the catheters and have not done for her. I would like Urology to take care of this Regards, Dillan Santiago MD [facility] 05-04-2025 Miscellaneous Notes I dont usually do the catheters and have not done for her. I would like Urology to take care of this Dillan Patel MD Images from the original note were not included. Tom Baltazar PA-C You3 days ago Yea I though Silas was doing this VADIM Stanford MT, PA-C You Tom Baltazar PA-C5 days ago KURTIS Hayes, do you want this sent to PCP to address? Patient was seen previously by you you once and was to [facility]. Nusrat Palmer LPN JAIRON 12/23/24 Home health care requesting orders for catheter. Patient was sent home from ortho rehab with a catheter but has pulled it out. Patient is fighting placed catheter but home health reports cognitive issues and doubts her ability to straight cath. Home health requesting catheter size and placement of orders. Please fax to Savanah at [facility] [phone]. JAIRON notes faxed through [employer]. Ophelia Ansari MA documented in this encounter [facility] 05-04-2025 Telephone encounter Note Verbal ok to order all these labs chest x-ray, BNP, CMP, and A1C for patient? Regards, Dillan Santiago MD [facility] 05-04-2025 Telephone encounter Note Images from the original note were not included. Tom Baltazar PA-C You3 days ago Yea I though Silas was doing this VADIM Stanford MT, PAManjeetC You Tom Baltazar, LACY-C5 days ago KURTIS Hayes, do you want this sent to PCP to address? Patient was seen previously by you you once and was to [facility]. Nusrat Palmer LPN [facility] 05-04-2025 Telephone encounter Note Brittni with [facility] calls in regards to TE from 04/24: Solange Craig RN 04/24/25 11:13 AM Note Brissa from [facility] is calling due to she saw patient [...] above labs and CXR. Nisha Clayton LPN [facility] 05-02-2025 Telephone encounter Note Spoke to [place]/Rupali, Patient just picked up Celexa 20mg RX yesterday, 05/01/2025, she has refills remaining. Radha Haro LPN T [facility] 05-02-2025 Miscellaneous Notes Spoke to [facility]/Rupali, Patient just picked up Celexa 20mg RX yesterday, 05/01/2025, she has refills remaining. Radha Haro LPN documented in this encounter [facility] 05-01-2025 Telephone encounter Note PDMP website checked and validated. All prescriptions have been APPROPRIATELY filled. No suspicious activity was identified. 05/01/2025 by Mariposa Salinas APRN.CNP [facility] 05-01-2025 Miscellaneous Notes PDMP website checked and validated. All prescriptions have been APPROPRIATELY filled. No suspicious activity was identified. 05/01/2025 by Mariposa Salinas APRN.CNP Patient has been identified by name and [...] Marisol Tomlinson MA. documented in this encounter [facility] 05-01-2025 Telephone encounter Note Patient has [...] Please advise. Thank you. Marisol Tomlinson MA. [facility] 04-27-2025 Telephone encounter Note JAIRON 12/23/24 [facility] 04-27-2025 Telephone encounter Note Home health care requesting orders for catheter. Patient was sent home from ortho rehab with a catheter but has pulled it out. Patient is fighting placed catheter but home health reports cognitive issues and doubts her ability to straight cath. Home health requesting catheter size and placement of orders. Please fax to Savanah at [facility] [phone]. JAIRON notes faxed through aitainment. Ophelia Ansari MA [facility] 04-24-2025 Telephone encounter Note Pts daughter called in and was asking about if she should take her mother to [facility] ER or a [facility] ER. She states since she is affiliated with [facility] would it be in her best interest to just go to the [facility]. I told her that is up to her, but the closest one would be [place], [facility], or [place]. She said if they went to [facility] they could always get her transfer to a [facility] facility. I told her it really depends on what they find when they do blood work when she get there. She said she would talk it over with her . Gabi Mcelroy RN T [facility] 04-24-2025 Miscellaneous Notes Pts daughter called in and was asking about if she should take her mother to [facility] ER or a [facility] ER. She states since she is affiliated with [facility] would it be in her best interest to just go to the [facility]. I told her that is up to her, but the closest one would be [place], [facility], or [place]. She said if they went to [facility] they could always get her transfer to a [facility] facility. I told her it really depends on what they find when they do blood work when she get there. She said she would talk it over with her . Gabi Mcelroy, RN Patient's daughter Maribeth Shin calling regarding [...] Daughter agreeable. Porsha Vasquez RN Brissa from [facility] is calling due to she saw patient [...] back with information. documented in this encounter [facility] 04-24-2025 Telephone encounter Note Patient's daughter Maribeth Cagleracheal calling regarding patient. Expresses concern that patient [...] all sx's. Daughter agreeable. Porsha Vasquez RN [facility] 04-24-2025 Telephone encounter Note Patient active MyChart. Patient notified via [employer] message. Mike Guo MA [facility] 04-24-2025 Miscellaneous Notes Patient active MyChart. Patient notified via [employer] message. Mike Guo MA Ordered as requested Regards, Dillan Santiago MD documented in this encounter [facility] 04-24-2025 Telephone encounter Note Ordered as requested Regards, Dillan Santiago MD [facility] 04-24-2025 Telephone encounter Note Brissa from [facility] is calling due to she saw patient [...] advise, nurse needs called back with information. [facility] 04-22-2025 Telephone encounter Note Called and spoke to patients jossie Stahl, will forward message to [facility] Mckenzie Lombardo LPN April 22, 2025 9:42 AM [facility] 04-22-2025 Miscellaneous Notes Called and spoke to patients jossie Stahl, will forward message to [facility] Mckenzie Lombardo LPN April 22, 2025 9:42 AM Would consider Compression stockings to be put on her and lifting her legs If that does not work we can give her a little lasix. RegardsDillan MD Larisa with [facility] calls to report she saw pt today for evaluation. Larisa reports OT will see pt once x 1 week, twice x 2 weeks, then once x 6 weeks. Larisa also reports that pt has 2+ pitting edema in left foot. Larisa was advised that foot has had swelling since pt's fall. Larsia report there is no redness or pain. Pt does say there is some discomfort at times but foot is not painful. Nisha Clayton LPN documented in this encounter [facility] 04-21-2025 Telephone encounter Note Would consider Compression stockings to be put on her and lifting her legs If that does not work we can give her a little lasix. RegardsDillan MD [facility] 04-21-2025 Telephone encounter Note Larisa with [facility] calls to report she saw pt [...] foot is not painful. Nisha Clayton LPN [facility] 04-20-2025 Telephone encounter Note See TE from 04/20/25 My [facility] with [facility] was going to have updated medication list faxed over to provider office. Gabi Mcelroy RN [facility] 04-20-2025 Miscellaneous Notes See TE from 04/20/25 My [facility] with [facility] was going to have updated medication list faxed over to provider office. Gabi Mcelroy RN TC to nurse at [facility] to obtain current med list. Unable to reach. [facility] office needs updated med list. Mike Guo MA documented in this encounter [facility] 04-20-2025 Telephone encounter Note Called and left a detailed voicemail notifying My CAO with [facility] of providers message. Clinic phone number was left in case she had any questions. Gabi Mcelroy RN [facility] 04-20-2025 Miscellaneous Notes Called and left a detailed voicemail notifying My CAO with [facility] of providers message. Clinic phone number was left in case she had any questions. Gabi Mcelroy RN Verbal ok for the same Regards, Dillan Santiago MD My with [facility] called and is notified of providers message. She voices understanding and reports that yes she does need the orders for the 16 swazi indwelling lizarraga. She states she can take a verbal order for that and we can leave a VM as her line is secure. She is also going to have her office fax over an updated medication list from when she was at the care home when she is done with her note. Gabi Mcelroy RN Agree Does she need orders for the 16 swazi indwelling lizarraga? Thanks Regards, Dillan Santiago MD Call received from My nurse at [facility], regarding orders for Pt (see below notation). [facility] nurse observed Pt self-cath, and she was not cleansing herself well. Pt's daughter is voicing concern about Pt's inability to do this at home. [facility] is requesting order for chronic indwelling lizarraga cathether, 16F. Last OV with urology - Tom Baltazar PA-C: 12/23/2024 My [facility] nurse phone: [facility] office phone: Fax number for orders: Josy Saucedo RN April 20, 2025 4:07 PM My calling back she will fax list from the SNF and will have to update med list with her admission notes to home health and fax that when she is able. Called and left a message for My CAO with [employer] that if she has an updated medication list from when the Pt was in the care home if she could fax that to Dr Santiago at [phone]. Gabi Mcelroy, RN [facility] with [facility] called in POC. She states SN will be seeing Pt three times a week for 2 weeks, then twice a week for 3 weeks, then once a week for 3 weeks. She states she is going to schedule a visit tomorrow if the provider will give them order to reinsert a lizarraga catheter. She reports that while the Pt was in the care home she had a lizarraga catheter in, and [...] Gabi Mcelroy RN documented in this encounter [facility] 04-20-2025 Telephone encounter Note Verbal ok for the same Regards, Dillan Santiago MD [facility] 04-20-2025 Telephone encounter Note My SN with [facility] called and is notified of providers message. She voices understanding and reports that yes she does need the orders for the 16 swazi indwelling lizarraga. She states she can take a verbal order for that and we can leave a VM as her line is secure. She is also going to have her office fax over an updated medication list from when she was at the care home when she is done with her note. Gabi Mcelroy RN [facility] 04-20-2025 Telephone encounter Note Agree Does she need orders for the 16 swazi indwelling lizarraga? Thanks Regards, Dillan Santiago MD [facility] 04-20-2025 Telephone encounter Note Call received from nurse My at [facility], regarding orders for Pt (see below notation). [facility] nurse observed Pt self-cath, and she was not cleansing herself well. Pt's daughter is voicing concern about Pt's inability to do this at home. [facility] is requesting order for chronic indwelling lizarraga cathether, 16F. Last OV with urology - Tom Baltazar PA-C: 12/23/2024 My [facility] nurse phone: [facility] office phone: Fax number for orders: Josy Saucedo RN April 20, 2025 4:07 PM [facility] 04-20-2025 Telephone encounter Note My calling back she will fax list from the SNF and will have to update med list with her admission notes to home health and fax that when she is able. [facility] 04-20-2025 Telephone encounter Note Called and left a message for My CAO with [employer] that if she has an updated medication list from when the Pt was in the care home if she could fax that to Dr Santiago at [phone]. Gabi Mcelroy RN [facility] 04-20-2025 Telephone encounter Note My [facility] with [facility] called in HH POC. She states SN will be seeing Pt three times a week for 2 weeks, then twice a week for 3 weeks, then once a week for 3 weeks. She states she is going to schedule a visit tomorrow if the provider will give them order to reinsert a lizarraga catheter. She reports that while the Pt was in the care home she had a lizarraga catheter in, and [...] on soilage. Please call and advise. Gabi Mcelroy, RN [facility] 04-17-2025 Telephone encounter Note We discussed about letter and she said she will message me when needed Regards, Dillan Santiago MD [facility] 04-17-2025 Miscellaneous Notes We discussed about letter and she said she will message me when needed Regards, Dillan Santiago MD Thomas spoke with patient daughter in regards to Home Health questions and also current housing AL options. Maribeth and Thomas discussed that [facility] looks to be an option for home healthcare. Thomas left message for [facility] referral line to call this Sw back to confirm if they will be serving patient home healthcare needs. Maribeth notes that [facility] will be providing home care clinician next week when patient stays at her apt. Maribeth notes that patient will then be coming to stay with her,until opening at [facility]. Maribeth notes that she is working on getting bedroom ready at there home for patient to come and stay with he. There is a wait list at [facility]. Thomas will let patient daughter know what she finds out from [facility]. Maribeth also mentioned a letter for her mom's current [address] apt, to see about being released from her housing there. Thomas noted that she would send message to Dr. Santiago to see what she says about letter. Thomas tried call to patient daughter and vmail is full, unable to leave message. Sw will try call another time. This Sw received SW consult and will work on reaching out to patient daughter to discuss social service needs. This Sw also notes that there is a message from today from [facility] noting orders for SN,PT,OT. It looks like Dr. Santiago agreed to [facility] seeing patient. documented in this encounter [facility] 04-17-2025 Telephone encounter Note Sw spoke with patient daughter in regards to Home Health questions and also current housing AL options. Maribeth and Thomas discussed that [facility] looks to be an option for home healthcare. Sw left message for [facility] referral line to call this Sw back to confirm if they will be serving patient home healthcare needs. Maribeth notes that [facility] will be providing home care clinician next week when patient stays at her apt. Maribeth notes that patient will then be coming to stay with her,until opening at [facility]. Maribeth notes that she is working on getting bedroom ready at there home for patient to come and stay with he. There is a wait list at [facility]. Sw will let patient daughter know what she finds out from [facility]. Maribeth also mentioned a letter for her mom's current [address] apt, to see about being released from her housing there. Sw noted that she would send message to Dr. Santiago to see what she says about letter. [facility] 04-17-2025 Telephone encounter Note Sw tried call to patient daughter and vmail is full, unable to leave message. Sw will try call another time. [facility] 04-17-2025 Note HNO ID: [id number] Author: DILLAN SANTIAGO MD Service: ? Author [...] until 03/04, followed by a stay at [facility] beginning on 03/19. Michaela is scheduled to be discharged from [facility] on Sunday. Her daughter has arranged for [...] and balance issues. - Referral sent to [facility] for PT and OT. 2. 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 Healing is delayed, contributing to mobility issues. - Monitor healing progress through follow-up appointments. - Co (more content not included)... [facility] 04-17-2025 Telephone encounter Note This Sw received consult and will work on reaching out to patient daughter to discuss social service needs. This Sw also notes that there is a message from today from [employer] [facility] noting orders for SN,PT,OT. It looks like Dr. Santiago agreed to [employer] seeing patient. [facility] 04-17-2025 History of Presen t illness [...] until 03/04, followed by a stay at [facility] beginning on 03/19. Michaela is scheduled to be discharged from [facility] on Sunday. Her daughter has arranged for [...] and balance issues. - Referral sent to [facility] for PT and OT. [...] to be stage 2 ulcer - Ordered custodial for wound care management. - Utilize hypochlorous [...] excuse any unintended typographical errors. Recording using [employer] software for draft documentation of the visit was discussed with the patient/authorized sales representative wire rope; all questions welcomed and answered. Patient/authorized sales representative wire rope agreed to proceed Dillan Santiago MD documented in this encounter [facility] 04-17-2025 Instructions Dillan Santiago MD - [...] is a positive sign for healing. - [facility] will be arranged to clean and care [...] you have experienced in the past. - [facility] will assist with catheter care, including monthly [...] These were helpful during your stay at [facility]. - Mental Health: - You are [...] are awaiting an updated medication list from [facility] to confirm all current prescriptions and dosages. - Living Arrangements: - Your daughter is exploring assisted living options for you, including a facility in [facility]. This will require private pay for two [...] - A referral has been sent to [facility] for custodial, PT, and OT. They will also assess [...] support your care needs. Next Steps: - [facility], PT, and OT will be arranged through [...] any other concerns. documented in this encounter [facility] 04-17-2025 Telephone encounter Note TC to nurse at [facility] to obtain current med list. Unable to reach. Left detailed message for nurse to [facility]. PCP office needs updated med list. Mike Guo MA [facility] 04-17-2025 Telephone encounter Note Wes with [employer] called and is notified of providers message. She voices understanding. Gabi Mcelroy RN [facility] 04-17-2025 Miscellaneous Notes Wes with [employer] called and is notified of providers message. She voices understanding. Gabi Mcelroy RN Will follow Dillan Patel MD Wes with [employer] called in and reports they received a referral for SN/PT/OT. She is asking if provider will fallow. Please call back. Gabi Mcelroy, RN documented in this encounter [facility] 04-17-2025 Telephone encounter Note Will follow Regards, Dillan Santiago MD [facility] 04-17-2025 Telephone encounter Note Wes with [employer] called in and reports they received a referral for SN/PT/OT. She is asking if provider will fallow. Please call back. Gabi Mcelroy RN [facility] 03-19-2025 Telephone encounter Note Thanks and noted Regards, Dillan Santiago MD [facility] 03-19-2025 Miscellaneous Notes Thanks and noted Regards, Dillan Santiago MD Canceled appointment for tomorrow per patients daughter request. Mckenzie Lombardo LPN March 19, 2025 4:00 PM Thomas spoke with patient daughter Maribeth. Maribeth notes that patient is currently at [facility] right now. Transitioned there today. Maribeth notes that she needs to cancel patient appt with Dr. Santiago tomorrow. Thomas notes that she will send message to Dr. Santiago regarding this need. Maribeth also noted that she is going to send My Chart message as well in regards to cancelling appt. Maribeth notes that the hospital had encouraged patient to go to [facility] for further care after being in [facility]. Daughter is trying to get with admissions at [facility] in regards to them saying that she is going there for 30 days and being placed in LTC and not Rehab. Daughter also notes that she has an appt next week with [employer] for financial planning. Maribeth also noted that she would like patient to see Dr. Santiago if and when she leaves [facility]. While in [facility], patient will be followed by their provider. Thomas did encourage patient daughter to also reach out to [facility] for further support guidance regarding LTC planning. Sw will forward note to Dr. Santiago and her office in regards to appt cancellation need for tomorrow. documented in this encounter [facility] 03-19-2025 Telephone encounter Note Canceled appointment for tomorrow per patients daughter request. Mckenzie Lombardo LPN March 19, 2025 4:00 PM [facility] 03-19-2025 Telephone encounter Note Thomas spoke with patient daughter Maribeth. Maribeth notes that patient is currently at [facility] right now. Transitioned there today. Maribeth notes that she needs to cancel patient appt with Dr. Santiago tomorrow. Thomas notes that she will send message to Dr. Santiago regarding this need. Maribeth also noted that she is going to send My Chart message as well in regards to cancelling appt. Maribeth notes that the hospital Sw had encouraged patient to go to [facility] for further care after being in [facility]. Daughter is trying to get with admissions at [facility] in regards to them saying that she is going there for 30 days and being placed in LTC and not Rehab. Daughter also notes that she has an appt next week with [employer] [facility] for financial planning. Maribeth also noted that she would like patient to see Dr. Santiago if and when she leaves [facility]. While in [facility], patient will be followed by their provider. Sw did encourage patient daughter to also reach out to [facility] and [facility] for further support guidance regarding LTC planning. will forward note to Dr. Santiago and her office in regards to appt cancellation need for tomorrow. [facility] 03-16-2025 Note [facility] Medical Records Department [address] [place] [address] Discharge Summary 03/16/252012 MR#: [id number] Acct: [id number] Name: MICHAELA BRANDT Rep #: [id number] : 1940 84 From: Garfield Yo MD PCP: Dr. Dillan Santiago MD Status:ADM IN Location: [place] [address] Providers Date of Admission: 03/04/25 Primary Care [...] - Clonazepam 0.5mg tid prn, stable chronic snf use, GDR not recommended. * Dementia NOS - Donepezil 10mg daily. * Depression - Lexapro 20mg daily, stable chronic clinical statistical programmer use, GDR not recommended. * Hypothyroidism - Levothyroxine 50mcg daily. * Insomnia - Trazodone 50mg qhs, stable chronic clinical statistical programmer use, GDR not recommended. Medications at Discharge [...] Eliquis 5mg bid thru 06/08/2025. Discharge to [facility], intermediate, part B therapies. Physical Exam Const [...] No restrictions Di (more content not included)... [facility] 03-04-2025 Note [facility] Medical Records Department [address] [place] [address] History Physical Exam 03/04/25 1717 MR#: [id number] Acct: [id number] Name: MICHAELA BRANDT Rep #: [id number] : 1940 84 From: Garfield Yo MD PCP: Dr. Dillan Santiago MD Status:ADM IN Location: [id number] HPI - General General Date of Admission: 03/04/25 Date of Service: 03/04/25 Chief Complaint: Here for rehabilitation. HPI Narrative MICHAELA BRANDT, is a 84 Female who presents with followin03/01/2025 [facility] ED fall. Left knee injury, fell off bed, hurt left knee, unable to move left knee. History left knee surgery, moved to [place] recently. CT brain negative, CT left knee negative. X-ray showed left hip fracture. Left knee immobilizer applied. 03/01/2025 Admit [facility]. Tylenol, Oxycodone, Dilaudid, prepare for surgery for [...] rehabilitation, strengthening, prior to discharge home alone. [facility] Medical History (Updated 03/04/25 @ 17:22 [...] mg tablet 50 mg PO QHS anxiety 03/01/2502/17 History acetaminophen 325 mg tablet (Aphen) 650 [...] Extremity normal capi (more content not included)... [facility] 03-04-2025 Consult note [facility] 03-04-2025 Discharge summary Note Date/Time March 04, 2025 12:22pm [facility] Medical Records Department [address] [place] [address] Transfer to [facility] Care MR#: [id number] Acct: [id number] Name: MICHAELA BRANDT Rep #:[id number] : 1940 84 From: Allison Tran MD PCP: Dr. Dillan Santiago MD Status:ADM I N Certification of patient admission REQUIRED AT TIME OF ADMISSION. I CERTIFY THAT POST-HOSPITAL ECF SERVICES ARE REQUIRED TO BE GIVEN ON AN IN-PATIENT BASIS BECAUSE OF THE ABOVE NAMED PATIENT'S NEED FOR LONGTERM CARE ON A CONTINUING BASIS FOR THE [...] in before D/C Order can be placed): Longterm Facility 03/04/25 1222 <Electronically signed by Allison Tran MD> Cosigner Signature (if applicable): CC: Dr. Dillan Santiago MD; Dr. Roro Long DO; Dr. Boston Rosas DO ~ [facility] Work Phone: 1(483) 559-120904-16-2025 Discharge summary [facility] Medical Records Department [address] [place] [address] Transfer to Extended [facility] MR#: [id number] Acct: [id number] Name: MICHAELA BRANDT Rep #:[id number] : 1940 84 From: Allison Tran MD PCP: Dr. Dillan Santiago MD Status:ADM I N Certification of patient admission REQUIRED AT TIME OF ADMISSION. I CERTIFY THAT POST-HOSPITAL ECF SERVICES ARE REQUIRED TO BE GIVEN ON AN IN-PATIENT BASIS BECAUSE OF THE ABOVE NAMED PATIENT'S NEED FOR LONGTERM CARE ON A CONTINUING BASIS FOR THE CONDITION(S) FOR WHICH HE/SHE WAS RECEIVING IN-PATIENT HOSPITAL SERVICES PRIOR TO HIS/HER TRANSFER TO THE F. 03/04/25 1222 Diet Diet Order/Speech Therapy: 03/02/25 [...] in before D/C Order can be placed): Longterm Facility 03/04/25 1222 Cosigner Signature (if applicable): CC: Dr. Dillan Santiago MD; Dr. Roro Long DO; Dr. Boston Rosas DO ~ [facility]04-16-2025 [facility] Medical Records Department [address] [place] [address] Discharge Summary 03/04/25 1222 MR#: [id number] Acct: [id number] Name: MICHAELA BRANDT Rep #: [id number] : 1940 84 From: Allison Tran MD PCP: Dr. Dillan Santiago MD Status:DIS IN Location: [facility] QO309-2 Providers Date of Admission: 03/01/25 Date of Discharge: 03/04/25 Primary Care Physician: Dr. 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/fitter and turner Routine Comment: Consult: Orthopedics Routine Consulting Provider: [...] for DVT prophylaxis. She was discharged to custodial facility on 03/04/2025. At the request of [...] heart sound, S2 n (more content not included)...[facility] [id number] Progress note Author Josy Parks [facility] Note Date/Time March 03, 2025 5:1 6pm [facility] Medical Records Department [address] [place] [address] Progress Note - Orthopedic 03/03/25 1316 MR#: [id number] Acct: [id number] Name: MICHAELA BRANDT Rep #:[id number] : 1940 84 From: Josy HOUSE PCP: Dr. Dillan Santiago MD Status:ADM I N Location: [place] [address] Subjective Subjective Patient is lying comfortably in [...] 74.6 H, Lymph % (Auto) 12.6 L, [place] % (Auto) 9.6, Eos % (Auto) 1.9, [...] evidence of fracture or loosening. Reading Location: [id number] Physical Exam Narrative 1. MEJIA hose in [...] orthopedic with any concerns or questions 03/03/25 0497 <Electronically signed by Josy HOUSE> Cosigner Signature (if applicable): CC: ~ Signed [facility] Work Phone: 1(836) 957-328004-15-2025 Progress note [facility] Medical Records Department [address] [place] [address] Progress Note - Orthopedic 03/03/25 1316 MR#: [id number] Acct: [id number] Name: ARYAMICHAELA MARTINEZ Rep #:[id number] : 1940 84 From: Josy HOUSE PCP: Dr. Dillan Santiago MD Status:ADM I N Location: MS3 MU547-5 Subjective Subjective Patient is lying comfortably in [...] 74.6 H, Lymph % (Auto) 12.6 L, [place] % (Auto) 9.6, Eos % (Auto) 1.9, [...] evidence of fracture or loosening. Reading Location: [id number] Physical Exam Narrative 1. MEJIA hose in [...] Contact orthopedic with any concerns or questions 03/03/251715 Cosigner Signature (if applicable): CC: ~ Signed [facility]04-15-2025 Progress note Author [facility] Note Date/Time March 03, 2025 3:[address] [place] [address] Health System Medical Records Department [address] [place] [address] Progress Note 03/03/25 1459 MR#: [id number] Acct: [id number] Name: MICHAELA BRANDT Rep #:[id number] : 1940 84 From: Allison Tran MD PCP: Dr. Dillan Santiago MD Status:ADM I N Location: [place] 870652-1 Subjective Subjective Patient seen and examined. Her [...] 74.6 H, Lymph % (Auto) 12.6 L, [place] % (Auto) 9.6, Eos % (Auto) 1.9, [...] evidence of fracture or loosening. Reading Location: [id number] Physical Exam Const alert, oriented x3, no [...] precert. * Charges/Coding Visit Charges Inpatient E&M: 79747 Subs Hosp L2 03/03/25 1511 <Electronically signed by Allison Tran MD> Allison Tran MD Cosigner Signature (if applicable): CC: ~ Signed [facility] Work Phone: 1(436) 288-682304-15-2025 Progress note [facility] Medical Records Department [address] [place] [address] Progress Note 03/03/25 1459 MR#: [id number] Acct: [id number] Name: MICHAELA BRANDT Rep #:[id number] : 1940 84 From: Allison Tran MD PCP: Dr. Dillan Santiago MD Status:ADM I N Location: [place] [address] Subjective Subjective Patient seen and examined. Her [...] 74.6 H, Lymph % (Auto) 12.6 L, [place] % (Auto) 9.6, Eos % (Auto) 1.9, [...] evidence of fracture or loosening. Reading Location: [facility] Physical Exam Const alert, oriented [...] precert. * Charges/Coding Visit Charges Inpatient E&M: 97414 Subs Hosp L2 03/03/25 1511 Allison Tran MD Cosigner Signature (if applicable): CC: ~ Signed [facility]04-15-2025 Consult note Author Jim Vidales [facility] Note Date/Time March 04, 2025 2:5 7pm [facility] Medical Records Department [address] [place] [address] Anesthesia Postop Eval II 03/03/25904 MR#: [id number] Acct: [id number] Name: MICHAELA BRANDT Rep #:[id number] : 1940 84 From: Jim Vidales MD PCP: Dr. 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 CARD GRADER.JDEF Vomiting No 03/02/25 13:00 [employer]DROOM PLASTIC CARD GRADER.JDEF Anesthesia Postop Eval I: Fluid Summary Crystalloid volume administer 600 03/02/25 13:00 CARDROOM PLASTIC CARD GRADER.JDEF (ml) Colloids volume administered ( ml) Blood Product volume administered (ml) Total IV fluid infused 600 03/02/25 13:00 [employer]DR[employer] P[employer] CARD GRADER.JDEF Anesthesia Postop Eval I: Summary Notes Anesthesia Complication No 03/02/25 13:00 CARDROOM PLASTIC CARD GRADER.JDEF Anesthesia Complication Comment: Post-operative progress note Anesthesia: Postop Eval II Evaluation Mental status: Awake and Calm Pain Level: 2 nausea: No Vomiting: No Complications Anesthesia Complication: No 03/03/25 0905 <Electronically signed by Jim herrera MD> Date _ Jim Vidales MD Cosigner Signature: Date CC: ~ Signed [facility] Work Phone: 1(416) 313-191404-14-2025 Progress note Author Allison [facility] Note Date/Time March 02, 2025 3:5 0pm [facility] Medical Records Department [address] [facility] [place] [address] Progress Note 03/02/25 1133 MR#: [id number] Acct: [id number] Name: MICHAELA BRANDT Rep #:[id number] : 1940 84 From: Allison Tran MD PCP: Dr. Dillan Santiago MD Status:ADM I N Location: [place] [address] Subjective Subjective Patient seen and examined. Her [...] 92.1 H, Lymph % (Auto) 3.3 L, [place] % (Auto) 3.8, Eos % (Auto) 0.0, [...] (Auto) 76.7 H, Lymph % (Auto) 11.6L, [place] % (Auto) 9.5, Eos % (Auto) 0.9, [...] fracture of the left femur. Reading Location: [facility] [facility] Knee X-Ray 03/01/25 11:41 IMPRESSION: Acute fracture of the left lateral femoral condyle. Reading Location: [facility] Brain CT 03/01/25 12:42 IMPRESSION: 1. No acute intracranial finding. 2. Findings of chronic microvascular ischemic changes and age-related changes. Reading Location: [facility] Lower Extremity CT 03/01/25 12:42 IMPRESSION: No acute osseous fracture. The previously visualized osseous fragment along the distal lateral left femoral condyle is secondary to diffuse bone lucency and probable nutrient channel. Reading Location: [facility] Chest X-Ray 03/01/25 13:59 IMPRESSION: Emphysema/fibrosis. No acute findings. Reading Location: [facility] Physical Exam Const alert, oriented x3, no [...] intubation * Charges/Coding Visit Charges Inpatient E&M: 39357 Subs Hosp L2 03/02/25 1550 <Electronically signed by Allison Tran MD> Allison Tran MD Cosigner Signature (if applicable): CC: ~ Signed [facility] Work Phone: 1(959) 823-974404-14-2025 Progress note [facility] Medical Records Department [address] [place] [address] Progress Note 03/02/25 1133 MR#: [id number] Acct: [id number] Name: MICHAELA BRANDT Rep #:[id number] : 1940 84 From: Allison Tran MD PCP: Dr. Dillan Santiago MD Status:ADM I N Location: [place] [address]-1 Subjective Subjective Patient seen and examined. Her [...] 92.1 H, Lymph % (Auto) 3.3 L, [place] % (Auto) 3.8, Eos % (Auto) 0.0, [...] (Auto) 76.7 H, Lymph % (Auto) 11.6L, [place] % (Auto) 9.5, Eos % (Auto) 0.9, [...] fracture of the left femur. Reading Location: [facility] Knee X-Ray 03/01/25 11:41 IMPRESSION: Acute fracture of the left lateral femoral condyle. Reading Location: [facility] Brain CT 03/01/25 12:42 IMPRESSION: 1. No acute intracranial finding. 2. Findings of chronic microvascular ischemic changes and age-related changes. Reading Location: [facility] Lower Extremity CT 03/01/25 12:42 IMPRESSION: No acute osseous fracture. The previously visualized osseous fragment along the distal lateral leftfemoral condyle is secondary to diffuse bone lucency and probable nutrient channel. Reading Location: [facility] Chest X-Ray 03/01/25 13:59 IMPRESSION: Emphysema/fibrosis. No acute findings. Reading Location: [facility] Physical Exam Const alert, oriented x3, no [...] intubation * Charges/Coding Visit Charges Inpatient E&M: 47485 Subs Hosp L2 03/02/25 0669 Allison Tran MD Cosigner Signature (if applicable): CC: ~ Signed [facility]04-14-2025 Radiology Diagnostic study note [facility] Imaging Services [address] [place] [address] Hip Min 2 Views (Portable) MR#: [id number] Acct: [id number] Name: MICHAELA BRANDT Rep #: [id number] : 1940 F 84 From: Jose Gayle DO PCP: Dr. Dillan Santiago MD Status: ADM I N Study:Hip Min 2 Views (Portable) Date of Exam : 03/02/25 Exam# [id number] Ordering Dr: James Overton MD PROCEDURE: HIP [...] evidence of fracture or loosening. Reading Location: [id number] CC: Dr. Dillan Santiago MD; Dr. Elijah Overton MD ~ Compensation Agent: Signed [facility]04-14-2025 Consult note Author Joanna Delgado [facility] Note Date/Time March 02, 2025 1:0 0pm [facility] Medical Records Department [address] [place] [address] Anesthesia Postop Eval I 03/02/25 1259 MR#: [id number] Acct: [id number] Name: MICHAELA BRANDT Rep #:[id number] : 1940 84 From: Joanna Delgado CRNA PCP: Dr. Dillan Santiago MD Status:ADM I N Y Race: C Location: [facility] -1 Anesthesia: Postop Eval I Current Vital Signs [...] 03/02/25 1300 <Electronically signed by Joanna chowdary [employer] GRADER> Date _ Joanna Delgado [employer] GRADER Cosigner Signature: Date CC: ~ Signed [facility] Work Phone: 1(846) 542-324304-14-2025 Consult note Author Sae nhi [facility] Note Date/Time March 02, 2025 11: 09am [facility] Medical Records Department [address] [place] [address] Pre-Anesthesia Evaluation 03/02/25 1109 MR#: [id number] Acct: [id number] Name: MICHAELA BRANDT Rep #:[id number] : 1940 84 From: Sae Sesay MD PCP: Dr. 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 Hx Hospitalization Any Problems With Anesthesia No [...] take am of surgery PONV PONV - 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: PONV - 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 Female HX of Motion Sickness HX of N/V After Surgery Non-Smoker Duration of Surgery greater than 60 minutes Number of Risk Factors PONV Score Height & Weight Height & Weight: Anesthesia: Height & Weight Height 5 ft 03/01/25 15:09 Weight: 57.7 kg 03/02/25 06:00 Body Mass Index (BMI) 25.0 03/02/25 06:00 Respiratory Assessment Respiratory Assessment - 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: Respiratory Tract Infection Hx - 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 Hx Respiratory Tract Infection No 03/01/25 22:27 STOP Sleep Apnea STOP Sleep Apnea - 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: STOP Sleep Apnea - 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 Hx Hypertension No 03/02/25 09:43 Hx Sleep [...] Tobacco Use History Tobacco Use 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: Tobacco Use 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 Tobacco Use Smoking Status Never smoker 03/01/25 16:34 Hx Tobacco Use No 03/01/25 15:09 Years Smoking Packs Smoked per Day Smoking Cessation Date was within the last 15 years Hx Smoking Cessation Date Hx Smoking Cessation Counseling Hematologic Medial History Hematologic Hx - 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: 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 Specify any problems Hx of Preganancy in last 3 No 03/01/25 15:09 Months Nurse Filling Out Transfusion JMAIDENNY 03/01/25 15:09 & Questions: Date: 03/01/25 03/01/25 15:09 Time: 15:15 03/01/25 15:09 Patient unable to answer at this time (ie. confused, unrespo /Reproduction History /Reproductive 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: /Reproductive Hx- 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 Hx Now No 03/01/25 22:27 Gestational Age [...] 03/02/25 10:49 IV 03/02/25 18:19 0 mls/hr .[id number] GRAY Infusion Sodium Chloride 100 mls @ [...] Powder 15gm Bottle TOPICAL Not Given BID [facility] Protocol Ondansetron HCl 4 mg 03/01/25 15:09 03/02/25 07:46 Ondansetron 4 Mg/2 Ml Vial IV 4 mg Q8H PRN PRN Administration NAUSEA/VOMITING Oxycodone HCl 5 mg 03/01/25 15:09 03/01/25 22:25 Oxycodone 5 Mg Tablet PO 5 mg Q4H PRN PRN Administration Pain Score 4-10 Senna/Docusate Sodium 2 tablet 03/01/25 22:00 03/01/25 21:11 Senna/Docusate Sodium 1 Tablet PO 2 tablet BID [facility] Administration Sodium Chloride 10 - 40 ml 03/01/25 15:09 03/02/25 07:46 0.9% Saline Lock 10 Ml Syringe IV 10 ml UD PRN Administration SALINE FLUSH Trazodone HCl 50 mg 03/01/25 22:00 03/01/25 21:12 Trazodone 50 Mg Tablet PO Not Given QHS [facility] PFSH Medical History Hypothyroidism Anxiety Dementia Self-catheterizes [...] MD Cosigner Signature: Date CC: ~ Signed [facility] Work Phone: 1(578) 808-542604-14-2025 Consult note Author Elijah Overton [facility] Note Date/Time March 02, 2025 11: 05am [facility] Medical Records Department [address] [place] [address] Consultation - Orthopedics 03/02/25 1100 MR#: [id number] Acct: [id number] Name: MICHAELA BRANDT Rep #:[id number] : 1940 84 From: Elijah Laws PCP: Dr. Dillan Santiago MD Status:ADM I N Location: [place] BT[facility]-0 HPI Consult Data Date of Consult: 03/02/25 HPI Narrative Reason for Consultation: Left hip pain HPI Narrative: MICHAELA BRANDT, is a 84 F who presents with left hip pain. Patient's daughter isat bedside and is her medical power of business attorney. Patient does have memory issues and [...] and was the primary provider of information. [facility] Medical History Hypothyroidism Anxiety Dementia Self-catheterizes [...] 92.1 H, Lymph % (Auto) 3.3 L, [place] % (Auto) 3.8, Eos % (Auto) 0.0, [...] (Auto) 76.7 H, Lymph % (Auto) 11.6L, [place] % (Auto) 9.5, Eos % (Auto) 0.9, [...] fracture of the left femur. Reading Location: [facility] Knee X-Ray 03/01/25 11:41 IMPRESSION: Acute fracture of the left lateral femoral condyle. Reading Location: [facility] Brain CT 03/01/25 12:42 IMPRESSION: 1. No acute intracranial finding. 2. Findings of chronic microvascular ischemic changes and age-related changes. Reading Location: [facility] Lower Extremity CT 03/01/25 12:42 IMPRESSION: No acute osseous fracture. The previously visualized osseous fragment along the distal lateral left femoral condyle is secondary to diffuse bone lucency and probable nutrient channel. Reading Location: [facility] Chest X-Ray 03/01/25 13:59 IMPRESSION: Emphysema/fibrosis. No acute findings. Reading Location: [facility] Assessment & Plan Assessment/Plan (1) Closed intertrochanteric fracture of left hip: PLAN: Natural history of the disease process was discussed with patient and her family member at bedside. Potential treatment options were discussed and cephalomedullary nail was recommended as appropriate treatment plan. Risk and benefits of the procedure were discussed the patient and her medical power of business attorney occluding but not limited to blood [...] applicable): CC: Dr. Dillan Santiago MD~ Signed [facility] Work Phone: [phone]) [phone] Consult note [facility] Medical Records Department [address] [place] [address] Anesthesia Postop Eval I 03/02/25 1259 MR#: [id number] Acct: [id number] Name: MICHAELA BRANDT Rep #:[id number] : 1940 84 From: Joanna Delgado CRNA PCP: Dr. Dillan Santiago MD Status:ADM I N Y Race: C Location: [place] [address] Anesthesia: Postop Eval I Current Vital Signs [...] Eval 1 completed: Yes 03/02/[address] [employer] GRADER> Date _ Joanna DeForeest [employer] GRADER Cosigner Signature: Date CC: ~ Signed [facility]04-14-2025 Procedure note [facility] Medical Records Department [address] [place] [address] Operative Report 03/02/25 1100 MR#: [id number] Acct: [id number] Name: MICHAELA BRANDT Rep #:[id number] : 1940 84 From: Elijah Laws PCP: Dr. Dillan Santiago MD Status:ADM I N Location: [place] [address] Operative Report (Standard) Operative Information Date of Procedure: 03/02/25 Pre-Operative Diagnosis: Left intertrochanteric hip fracture Post-Operative Diagnosis: Left intertrochanteric hip fracture Surgery/Procedure Performed: Left hip cephalomedullary nail residential life director: No Type of Anesthesia: General RN Documented Start/Stop Times: Operation Date: 03/02/25 13:15 Case Time Into Pre-Op 03/02/25 10:50 Anesthesia Start 03/02/25 11:50 Into Room 03/02/25 11:50 Procedure Start 03/02/25 12:16 Procedure End 03/02/25 12:41 Procedure Start Time: 12:16 Procedure Stop Time: 12:41 Select all DRAINS/GRAFTS/IMPLANTS that apply: Implanted device Implanted device details: Hiddenite gamma nail 3, 11 mm x 180 [...] verify theplacement of the nail and a Hiddenite short gamma 3 by 11 mm 125 degree hip nail was selected. The 12.5 mm reamer was then passed. The nail was then attached to the tour conductor and inserted into the intramedullary canal. The [...] Hose VTE Pharm Prophylaxis ordered?: Yes 03/02/25 8260 Cosigner Signature (if applicable): CC: Dr. Dillan Santiago MD; Dr. Roro Long DO; Dr. Boston Rosas DO; Dr. Elijah Overton MD~ Signed [facility]04-14-2025 Radiology Diagnostic study note [facility] Imaging Services [address] [place], [place] [address] Hip Min 2 Views (Portable) MR#: [id number] Acct: [id number] Name: MICHAELA BRANDT Rep #: [id number] : 1940 F 84 From: Tanner Beth MD PCP: Dr. Dillan Santiago MD Status: ADM I N Study:Hip Min 2 Views (Portable) Date of Exam : 03/02/25 Exam# [id number] Ordering Dr: James Overton MD PROCEDURE: Intraoperative [...] of the left intertrochanteric fracture. Reading Location: [place] [address] CC: Dr. Dillan Santiago MD; Dr. Elijah Overton MD ~ Compensation Agent: Signed [facility]04-14-2025 Consult note [facility] Medical Records Department [address] [place] [address] Pre-Anesthesia Evaluation 03/02/25 1109 MR#: [id number] Acct: [id number] Name: MICHAELA BRANDT Rep #:[id number] : 1940 84 From: Sae Sesay MD PCP: Dr. 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 Female HX of Motion Sickness HX of N/V After Surgery Non-Smoker Duration of Surgery greater than 60 minutes Number of Risk Factors PONV Score Height & Weight Height & Weight: Anesthesia: Height & Weight Height 5 ft 03/01/25 15:09 Weight: 57.7 kg 03/02/25 06:00 Body Mass Index (BMI) 25.0 03/02/25 06:00 Respiratory Assessment Respiratory Assessment - 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: Respiratory Tract Infection Hx - 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 Hx Respiratory Tract Infection No 03/01/25 22:27 STOP Sleep Apnea STOP Sleep Apnea - 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: STOP Sleep Apnea - 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 Hx Hypertension No 03/02/25 09:43 Hx Sleep [...] Tobacco Use History Tobacco Use 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: Tobacco Use 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 Tobacco Use Smoking Status Never smoker 03/01/25 16:34 Hx Tobacco Use No 03/01/25 15:09 Years Smoking Packs Smoked per Day Smoking Cessation Date was within the last 15 years Hx Smoking Cessation Date Hx Smoking Cessation Counseling Hematologic Medial History Hematologic Hx - 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: 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 Hx of Blood Transfusion No 03/01/25 15:09 [...] confused, unrespo /Reproduction History /Reproductive 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: /Reproductive Hx- 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 Hx Now No 03/01/25 22:27 Gestational Age [...] 03/02/25 10:49 IV 03/02/25 18:19 0 mls/hr .[id number] GRAY Infusion Sodium Chloride 100 mls @ 15 mls/hr 03/01/25 15:09 IV .Q6H40M PRN Saline Flush Sodium Chloride 1,000 mls @ 15 mls/hr 03/02/25 10:55 IV .Q48H [facility] Levothyroxine Sodium 50 mcg 03/02/25 06:00 03/02/25 07:48 Levothyroxine 50 Mcg Tablet PO 50 mcg DAILY@0600 [facility] Administration Melatonin 3 mg 03/01/25 15:09 Melatonin 3 Mg Tablet PO QHS PRN PRN INSOMNIA Morphine Sulfate 2 - 4 mg 03/01/25 15:09 03/02/25 07:46 Morphine 2 Mg/Ml Syringe IV 2 mg Q3H PRN PRN Administration Pain Score 6-10 Nystatin 1 applic 03/01/25 22:00 03/02/25 10:29 Nystatin Powder 15gm Bottle TOPICAL Not Given BID [facility] Protocol Ondansetron HCl 4 mg 03/01/25 15:09 03/02/25 07:46 Ondansetron 4 Mg/2 Ml Vial IV 4 mg Q8H PRN PRN Administration NAUSEA/VOMITING Oxycodone HCl 5 mg 03/01/25 15:09 03/01/25 22:25 Oxycodone 5 Mg Tablet PO 5 mg Q4H PRN PRN Administration Pain Score 4-10 Senna/Docusate Sodium 2 tablet 03/01/25 22:00 03/01/25 21:11 Senna/Docusate Sodium 1 Tablet PO 2 tablet BID [facility] Administration Sodium Chloride 10 - 40 ml 03/01/25 15:09 03/02/25 07:46 0.9% Saline Lock 10 Ml Syringe IV 10 ml UD PRN Administration SALINE FLUSH Trazodone HCl 50 mg 03/01/25 22:00 03/01/25 21:12 Trazodone 50 Mg Tablet PO Not Given QHS [facility] PFSH Medical History Hypothyroidism Anxiety Dementia Self-catheterizes [...] MD Cosigner Signature: Date CC: ~ Signed [facility]04-14-2025 Consult note [facility] Medical Records Department [address] [place] [address] Consultation - Orthopedics 03/02/25 1100 MR#: [id number] Acct: [id number] Name: MICHAELA BRANDT Rep #:[id number] : 1940 84 From: Elijah Laws PCP: Dr. Dillan Santiago MD Status:ADM I N Location: [place] [address] HPI Consult Data Date of Consult: 03/02/25 HPI Narrative Reason for Consultation: Left hip pain HPI Narrative: MICHAELA BRANDT, is a 84 F who presents with left hip pain. Patient's daughter isat bedside and is her medical power of business attorney. Patient does have memory issues and [...] and was the primary provider of information. [facility] Medical History Hypothyroidism Anxiety Dementia Self-catheterizes [...] 92.1 H, Lymph % (Auto) 3.3 L, [place] % (Auto) 3.8, Eos % (Auto) 0.0, [...] (Auto) 76.7 H, Lymph % (Auto) 11.6L, [place] % (Auto) 9.5, Eos % (Auto) 0.9, [...] fracture of the left femur. Reading Location: [facility] Knee X-Ray 03/01/25 11:41 IMPRESSION: Acute fracture of the left lateral femoral condyle. Reading Location: [facility] Brain CT 03/01/25 12:42 IMPRESSION: 1. No acute intracranial finding. 2. Findings of chronic microvascular ischemic changes and age-related changes. Reading Location: [facility] Lower Extremity CT 03/01/25 12:42 IMPRESSION: No acute osseous fracture. The previously visualized osseous fragment along the distal lateral leftfemoral condyle is secondary to diffuse bone lucency and probable nutrient channel. Reading Location: [facility] Chest X-Ray 03/01/25 13:59 IMPRESSION: Emphysema/fibrosis. No acute findings. Reading Location: [facility] Assessment & Plan Assessment/Plan (1) Closed intertrochanteric fracture of left hip: PLAN: Natural history of the disease process was discussed with patient and her family member at bedside. Potential treatment options were discussed and cephalomedullary nail was recommended as appropriate treatment plan. Risk and benefits of the procedure were discussed the patient and her medicalpower of business attorney occluding but not limited to blood [...] applicable): CC: Dr. Dillan Santiago MD~ Signed [facility]04-14-2025 Discharge summary Author Guerrero [place] [facility] Note Date/Time March 01, 2025 10: 59pm [facility] Medical Records Department [address] [place] [address] Emergency Department Summary 03/01/25 MR#: [id number] Acct: [id number] Name: MICHAELA BRANDT Rep #:[id number] : 1940 84 From: Guerrero Sommer PCP: Dr. Dillan Santiago MD Status:ADM I N Location: [place] [address] HPI HPI - Fall History of Present [...] not. That was apparently in 2014 in [facility]. Patient reportedly just moved to the area. She denies any other injuries. She states that she cannot really move the knee. Patient is very tearful upset about bothering her children and over her late . There is a report of the degree of dementia that is reported to me. [facility] Medical History (Updated 03/01/25 @ 13:47 by [...] 92.1 H Lymph % (Auto) 3.3 L [place] % (Auto) 3.8 Eos % (Auto) 0.0 [...] fracture of the left femur. Reading Location: [facility] Knee X-Ray 03/01/25 11:41 IMPRESSION: Acute fracture of the left lateral femoral condyle. Reading Location: [facility] Brain CT 03/01/25 12:42 IMPRESSION: 1. No acute intracranial finding. 2. Findings of chronic microvascular ischemic changes and age-related changes. Reading Location: [facility] Lower Extremity CT 03/01/25 12:42 IMPRESSION: No acute osseous fracture. The previously visualized osseous fragment along the distal lateral left femoral condyle is secondary to diffuse bone lucency and probable nutrient channel. Reading Location: [facility] EKG Initial EKG: Attestation: I personally reviewed and interpreted this EKG as follows: Comments: Sinus rhythm ventricular rate 65 bpm Management Discussion w/another healthcare provider: Hospitalist, Mobile Equipment Mechanic (Dr Rosas) and vegetable i farmworker/Case management Discharge Plan Dx/Rx/DC Orders Clinical Impression: Fall, Closed intertrochanteric fracture of left hip, Acute pain of left knee Disposition Disposition: Acute Care Hospital [facility] What to do if you have Problems For any increased pain, shortness of breath, bleeding, nausea or vomiting, chestpain, or any unexpected problems, contact your Primary Care Provider. Call [facility] ([phone]) or report to the closest Emergency Room. Call 911 if necessary. 03/01/25 9256 <Electronically signed by Guerrero Valerio DO> Cosigner Signature (if applicable): CC: Dr. Dillan Santiago MD ~ Signed [facility] Work Phone: 1(998) 753-662604-13-2025 Discharge summary [facility] Medical Records Department [address] [place] [address] Emergency Department Summary 03/01/25 MR#: [id number] Acct: [id number] Name: MICHAELA BRANDT Rep #:[id number] : 1940 84 From: Guerrero Sommer PCP: Dr. Dillan Santiago MD Status:ADM I N Location: [place] 870652-1 HPI HPI - Fall History of Present [...] not. That was apparently in 2014 in [facility]. Patient reportedly just moved to the area. She denies any other injuries. She states that she cannot really move the knee. Patient is very tearful upset about bothering her children and over her late . There is a report of the degree of dementia that is reported to me. [facility] Medical History (Updated 03/01/25 @ 13:47 by [...] 92.1 H Lymph % (Auto) 3.3 L [place] % (Auto) 3.8 Eos % (Auto) 0.0 [...] fracture of the left femur. Reading Location: [facility] Knee X-Ray 03/01/25 11:41 IMPRESSION: Acute fracture of the left lateral femoral condyle. Reading Location: [facility] Brain CT 03/01/25 12:42 IMPRESSION: 1. No acute intracranial finding. 2. Findings of chronic microvascular ischemic changes and age-related changes. Reading Location: [facility] Lower Extremity CT 03/01/25 12:42 IMPRESSION: No acute osseous fracture. The previously visualized osseous fragment along the distal lateral leftfemoral condyle is secondary to diffuse bone lucency and probable nutrient channel. Reading Location: [facility] EKG Initial EKG: Attestation: I personally reviewed and interpreted this EKG as follows: Comments: Sinus rhythm ventricular rate 65 bpm Management Discussion w/another healthcare provider: Hospitalist, Mobile Equipment Mechanic (Dr Rosas) and vegetable i farmworker/Case management Discharge Plan Dx/Rx/DC Orders Clinical Impression: Fall, Closed intertrochanteric fracture of left hip, Acute pain of left knee Disposition Disposition: Acute Care Hospital [facility] What to do if you have Problems For any increased pain, shortness of breath, bleeding, nausea or vomiting, chestpain, or any unexpected problems, contact your Primary Care Provider. Call [facility] ([phone]) or report tothe closest Emergency Room. Call 911 if necessary. 03/01/25 7329 Cosigner Signature (if applicable): CC: Dr. Dillan Santiago MD ~ Signed [facility]04-13-2025 History and physical note Author Roro Long [facility] Note Date/Time March 01, 2025 4:3 7pm [facility] Medical Records Department [address] [place] [address] H&P Exam - Hospitalist 03/01/25 1345 MR#: [id number] Acct: [id number] Name: MICHAELA BRANDT Rep #:[id number] : 1940 84 From: Roro Long DO PCP: Dr. Dillan Santiago MD Status:ADM I N Location: [facility] JX091-7 HPI - General General Date of Admission: 03/01/25 Date of Service: 03/01/25 Chief Complaint: L hip pain after mechanical fall HPI Narrative MICHAELA BRANDT, is a 84 F who presented to the emergency department at [facility] on 03/01/2025 with a chief complaint of [...] admitted with an expected 2 midnight stay. [facility] Medical History Hypothyroidism Anxiety Dementia Self-catheterizes [...] 92.1 H, Lymph % (Auto) 3.3 L, [place] % (Auto) 3.8, Eos % (Auto) 0.0, [...] fracture of the left femur. Reading Location: [facility] Knee X-Ray 03/01/25 11:41 IMPRESSION: Acute fracture of the left lateral femoral condyle. Reading Location: [facility] Brain CT 03/01/25 12:42 IMPRESSION: 1. No acute intracranial finding. 2. Findings of chronic microvascular ischemic changes and age-related changes. Reading Location: [facility] Lower Extremity CT 03/01/25 12:42 IMPRESSION: No acute osseous fracture. The previously visualized osseous fragment along the distal lateral left femoral condyle is secondary to diffuse bone lucency and probable nutrient channel. Reading Location: [facility] Assessment & Plan Assessment/Plan (1) Closed intertrochanteric [...] code temporarily. Charges/Coding Visit Charges Inpatient E&M: 57832 Init Hosp L2 03/01/25 1637 <Electronically signed by Roro Long DO> Cosigner Signature (if applicable): CC: Dr. Dillan Santiago MD; Dr. Roro Long DO~ Signed [facility] Work Phone: 1(360) 968-161604-13-2025 History and physical note [facility] Medical Records Department [address] [place] [address] H&P Exam - Hospitalist 03/01/25 1345 MR#: [id number] Acct: [id number] Name: MICHAELA BRANDT Rep #:[id number] : 1940 84 From: Roro Long DO PCP: Dr. Dillan Santiago MD Status:ADM I N [facility] - General General Date of Admission: 03/01/25 Date of Service: 03/01/25 Chief Complaint: L hip pain after mechanical fall HPI Narrative MICHAELA BRANDT, is a 84 F who presented to the emergency department at [facility] on03/01/2025 with a chief complaint of left [...] admitted with an expected 2 midnight stay. [facility] Medical History Hypothyroidism Anxiety Dementia Self-catheterizes [...] 92.1 H, Lymph % (Auto) 3.3 L, [place] % (Auto) 3.8, Eos % (Auto) 0.0, [...] fracture of the left femur. Reading Location: [facility] Knee X-Ray 03/01/25 11:41 IMPRESSION: Acute fracture of the left lateral femoral condyle. Reading Location: [facility] Brain CT 03/01/25 12:42 IMPRESSION: 1. No acute intracranial finding. 2. Findings of chronic microvascular ischemic changes and age-related changes. Reading Location: [facility] Lower Extremity CT 03/01/25 12:42 IMPRESSION: No acute osseous fracture. The previously visualized osseous fragment along the distal lateral leftfemoral condyle is secondary to diffuse bone lucency and probable nutrient channel. Reading Location: [facility] Assessment & Plan Assessment/Plan (1) Closed intertrochanteric [...] code temporarily. Charges/Coding Visit Charges Inpatient E&M: 91872 Init Hosp L2 03/01/25 1636 Cosigner Signature (if applicable): CC: Dr. Dillan Santiago MD; Dr. Roro Logn, DO~ Signed [facility]04-13-2025 Evaluation note* Diagnosis Onset Date Resolution Status Admit Date Acute pain of left knee acute A pril 2024 1:47pm Closed intertrochanteric fra cture of left hip acute March 01, 2025 1:47pm Fall acute March 01 1:47pm [facility] Work Phone: 1(297) 986-984504-13-2025 Evaluation note* Diagnosis Onset Date Resolution Status Admit Date Acute pain of left knee resolved A pril 2024 1:47pm Closed intertrochanteric fra cture of left hip inactive March 01, 2025 1:47pm Fall inactive March 01 1:47pm Anxiety acute March 04 3:04pm Debility acute March 04 3:04pm Dementia acute March 04 3:04pm Depression acute March 04 3:04pm Hypothyroidism acute February 3:04pm Insomnia acute March 04 3:04pm Urinary retention acute February 172024 3:04pm Acute pain of left knee resolved A pril 2024 3:04pm Closed intertrochanteric fra cture of left hip inactive March 04, 2025 3:04pm Fall inactive March 04 3:04pm [facility] Work Phone: 1(113) 707-915404-13-2025 Radiology Diagnostic study note [facility] Imaging Services [address] [place] [address] Chest 1 View (Portable) MR#: [id number] Acct: [id number] Name: MICHAELA BRANDT Rep #: [id number] : 1940 F 84 From: Jo Rabago MD PCP: Dr. Dillan Santiago MD Status: ADM I N Study:Chest 1 View (Portable) Date of Exam: 03/01/25 Exam# [id number] Ordering Dr: Cassy Long DO PROCEDURE: CHEST [...] IMPRESSION: Emphysema/fibrosis. No acute findings. Reading Location: [facility] CC: Dr. Dillan Santiago MD; Dr. Roro Long DO ~ Compensation Agent: Signed [facility]04-13-2025 Radiology Diagnostic study note [facility] Imaging Services [address] [place] [address] Knee 1 or 2 Views MR#: [id number] Acct: [id number] Name: MICHAELA BRANDT Rep #: [id number] : 1940 F 84 From: Jo Rabago MD PCP: Dr. Dillan Santiago MD Status: REG E R Study:Knee 1 or 2 Views Date of Exam: Exam# [id number] Ordering Dr: Veto Valerio DO ADDENDUM by Dr. Janet Rabago MD on 03/01/25 at 1310 No acute osseous fracture seen on same day CT of the left knee. The previously visualized osseous fragment along the distal lateral left femoral condyle is secondary to diffuse bone lucency and probable nutrient channel. Reading Location: [facility] 03/01/25 1311 Date cc: Dr. Dillan Santiago [...] the left lateral femoral condyle. Reading Location: [facility] CC: Dr. Dillan Santiago MD; Dr. Guerrero Valerio DO ~ Compensation Agent: Signed [facility]04-13-2025 Radiology Diagnostic study note [facility] Imaging Services [address] [place], [place] [id number] Extremity Lower without Contra MR#: [id number] Acct: [id number] Name: MICHAELA BRANDT Rep #: [id number] : 1940 F 84 From: Jo Rabago MD PCP: Dr. Dillan Santiago MD Status: REG E R Study:Extremity Lower without Contra Date of Exam: 03/01/25 Exam# [id number] Ordering Dr: Veto Valerio DO PROCEDURE: EXTREMITY [...] lucency and probable nutrient channel. Reading Location: [facility] CC: Dr. Dillan Santiago MD; Dr. Guerrero Valerio DO ~ Compensation Agent: Signed [facility]04-13-2025 Radiology Diagnostic study note [facility] Imaging Services [address] [place], [place] [id number] Brain/Head without Contrast MR#: [id number] Acct: [id number] Name: MICHAELA BRANDT Rep #: [id number] : 1940 F 84 From: Jo Rabago MD PCP: Dr. Dillan Santiago MD Status: REG E R Study:Brain/Head without Contrast Date of Exa m: 03/01/25 Exam# [id number] Ordering Dr: Veto Valerio DO EXAM: BRAIN/HEAD [...] ischemic changes and age-related changes. Reading Location: [id number] CC: Dr. Dillan Santiago MD; Dr. Guerrero Valerio DO ~ Compensation Agent: Signed [facility]04-13-2025 Radiology Diagnostic study note [facility] Imaging Services [address] [place] [id number] HIP, UNI W/ Pelvis 2-3 Views MR#: [id number] Acct: [id number] Name: MICHAELA BRANDT Rep #: [id number] : 1940 F 84 From: Jo Rabago MD PCP: Dr. Dillan Santiago MD Status: REG E R Study:HIP, UNI W/ Pelvis 2-3 Views Date of Ex am: 03/01/25 Exam# [id number] Ordering Dr: Veto Valerio DO PROCEDURE: HIP, [...] fracture of the left femur. Reading Location: [facility] CC: Dr. Dillan Santiago MD; Dr. Guerrero Valerio DO ~ Compensation Agent: Signed [facility]04-11-2025 Telephone encounter Note* Telephone Encounter - Kentrell Montgomery MSW - 02/27/2025 2:48 PM EDT Thomas spoke with patient daughter Maribeth. Maribeth noted that her mother is currently living on [address] [place] is concerned about mother living [...] discussed different local memory care options ie. [place], [place], [facility], [facility]. Maribeth notes that her mom was not interested in any place that looks like a care home. Discussed the different options above and layout and levels of care they offer. Maribeth notes that she is going to give Yuko a call from [facility] to see about her assistance as a chcf advisor looking at level of care memory care options for patient. Maribeth has this direct number for further assistance. [facility]04-11-2025 Miscellaneous Notes* Telephone Encounter - Kentrell Montgomery MSW - 02/27/2025 2:48 PM EDT Thomas spoke with patient daughter Maribeth. Maribeth noted that her mother is currently living on [address] [place] is concerned about mother living [...] discussed different local memory care options ie. [place], [place], [facility], [facility]. Maribeth notes that her mom was not interested in any place that looks like a care home. Discussed the different options above and layout and levels of care they offer. Maribeth notes that she is going to give Yuko a call from [facility] to see about her assistance as a chcf advisor looking at level of care memory care options for patient. Maribeth has this direct number for further assistance. * Telephone Encounter - Kentrell Montgomery MSW - 02/27/2025 2:26 PM EDT Thomas left message for patient requesting call back to discuss patient home care resource needs. documented in [facility] encounterGu[facility]04-[facility] Telephone encounter Note * Telephone Encounter - Kentrell Montgomery MSW - 02/27/2025 2:26 PM EDT Thomas left message for patient requesting call back to discuss patient home care resource needs. [facility]04-09-2025 Telephone encounter Note* Telephone Encounter - Mariposa Salinas APRN.CNP - 02/25/2025 8:56 AM EDT PDMP website checked and validated. All prescriptions have been APPROPRIATELY filled. No suspiciousactivity was identified. 02/25/2025 by Mariposa Salinas APRN.CNP [facility]04-09-2025 Miscellaneous Notes* Telephone Encounter - Mariposa Salinas APRN.CNP - 02/25/2025 8:56 AM EDT PDMP website checked and validated. All prescriptions have been APPROPRIATELY filled. No suspiciousactivity was identified. 02/25/2025 by Mariposa Salinas APRN.ARIEL * Telephone Encounter [...] you. Radha Haro LPN. documented in this encounterGuernsey [facility] Hospital04-09-2025 Telephone encounter Note * Telephone Encounter [...] Please advise. Thank you. Radha Haro LPN. [facility]04-06-2025 Telephone encounter Note* Telephone Encounter - Sara Adams OCCA - 02/22/2025 9:08 AM EDT TC to patients daughter and medical JANETHMichaela Ham, who verbalized understanding of providers message below. KIRIT Mendez [facility]04-06-2025 Miscellaneous Notes* Telephone Encounter - Sara Adams OCCA - 02/22/2025 9:08 AM EDT TC to patients daughter and medical JUAN Michaela, who verbalized understanding of providers message below. KIRIT Mendez * Telephone Encounter - Walt Robles APRN.CNP - 02/22/2025 8:31 AM EDT Patient is on the correct antibiotic. Symptoms should be improving. If symptoms are not improving patient needs to see primary care documented in this encounterGuernsey [facility] Hospital04-06-2025 Telephone encounter Note * Telephone Encounter - Walt Robles APRN.CNP - 02/22/2025 8:31 AM EDT Patient is on the correct antibiotic. Symptoms should be improving. If symptoms are not improving patient needs to see primary care [facility]04-03-2025 Telephone encounter Note* Telephone Encounter - Colten Greer MA - 02/19/2025 3:19 PM EDT Spoke with patient's daughter. Daughter will bring patient in for urine. Colten Greer MA [facility]04-03-2025 Miscellaneous Notes* Telephone Encounter - Colten Greer MA - 02/19/2025 3:19 PM EDT Spoke with patient's daughter. Daughter will bring patient in for urine. Colten Greer MA * Telephone Encounter - Walt Robles APRN.CNP - 02/19/2025 3:03 PM EDT Please call patient and have her come back in and give a urine culture. documented in this encounterGuernsey [facility] Hospital04-03-2025 Telephone encounter Note * Telephone Encounter - Walt Robles APRN.CNP - 02/19/2025 3:03 PM EDT Please call patient and have her come back in and give a urine culture. [facility]04-03-2025 NoteHNO ID: [id number] Author: WALT ROBLES APRN.ARIEL Service: ? Author Type: Nurse Practitioner Type: [...] history is provided by the patient. No parts interpreter was used. Review of Systems Constitutional: Negative. [...] be changed please change accordingly. Walt Robles APRN.POSTAL INSPECTOR [facility] ProceduresSumma Health04-03-2025 History of Present illness Narrative* Walt Robles [...] history is provided by the patient. No parts interpreter was used. Review of Systems Constitutional: Negative. [...] be changed please change accordingly. Walt Robles APRN.POSTAL INSPECTOR [facility] Procedures documented in this encounterGuernsey Memorial Hospital04-02-2025 NoteHNO ID: [id number] Author: MICHAELA DAVILA MA Service: ? Author Type: Linux Architect Type: Progress Notes Filed: 02/18/2025 16:19 Note Text: Ambulatory Ear Lavage Pre-treatment: No pre-treatment Treatment: Right ear Equipment and Irrigation solution and Volume used: Single use syringe with single use irrigation tip Water Return flow appearance: Debris Patient tolerated procedure: yes Tympanic membrane assessment: Tympanic membrane assessed by LIP pre and post procedureSumma Health04-02-2025 History of Present illness Narrative* Michaela Davila MA - 02/18/2025 11:19 AM EDT Ambulatory Ear Lavage Pre-treatment: No pre-treatment Treatment: Right ear Equipment and Irrigation solution and Volume used: Single use syringe with single use irrigation tip Water Return flow appearance: Debris Patient tolerated procedure: yes Tympanic membrane assessment: Tympanic membrane assessed by LIP pre and post procedure * Mariposa Salinas APRN.POSTAL INSPECTOR - 02/18/2025 10:26 AM EDT CC: Patient [...] agreeable to treatment plan. Mariposa Salinas APRN.CNP Medical Decision Making: Problems: Minimal: Self-limited or minor problem Data: Unique test(s) ordered: 1 Risk: Low: Low risk from testing/treatment Medical Decision Making Level: 2 - Straightforward documented in this encounterGuernsey Memorial Hospital04-02-2025 NoteHNO ID: [id number] Author: MARIPOSA SALINAS APRN.CNP Service: ? Author [...] 02/28/2020 Influenza Vaccine(1) due on 07/20/2024 Covid-19 Vaccine( - season) due on 07/20/2024 Advance Directive Discussion [...] occur. Patient agreeable to treatment plan. Mariposa aSlinas APRN.ARIEL Medical Decision Making: Problems: Minimal: Self-limited or minor problem Data: Unique test(s) ordered: 1 Risk: Low: Low risk from testing/treatment Medical Decision Making Level: 2 - StraightforwardSumma Health 02-04-2025 NoteHNO ID: [id number] Author: DILLAN SANTIAGO MD Service: ? Author [...] increased anxiety or adv (more content not included)...[facility]03-19-20[facility] History of Present illness Narrative* Dillan Santiago [...] patient consented to the use of ambient [employer] software for draft documentation of the visit consistent with [facility] s Notice of Privacy Practices. Dillan Santiago MD documented in this encounterGuernsey Memorial Hospital03-19-2025 Instructions* Patient Instructions* Dillan Santiago MD [...] in managing your health. documented in this encounterGuernsey Memorial Hospital03-19-2025 Telephone encounter Note * Telephone Encounter - Mckenzie Lombardo LPN - 02/04/2025 10:47 AM EDT Patient Ganiparahart message requesting the following refill Refill(s) Requested: Requested Prescriptions Pending Prescriptions Disp Refills donepezil (ARICEPT) 5 mg tablet 30 tablet 11 Sig: Take 1 tablet by mouth daily at bedtime. ALLERGIES No Known Allergies (home) [phone] (cell) Last Office Visit Date: 12/10/2024 Last Distance Health Visit: Visit date not found Future Appointment: 02/04/2025 The patients preferred pharmacy has been captured for this encounter? yes Request is for script(s) to be escript to pharmacy. Mckenzie Lombardo LPN [facility]03-19-2025 Miscellaneous Notes* Telephone Encounter - Mckenzie Lombardo LPN - 02/04/2025 10:47 AM EDT Patient MyChart message requesting the following refill Refill(s) Requested: Requested Prescriptions Pending Prescriptions Disp Refills donepezil (ARICEPT) 5 mg tablet 30 tablet 11 Sig: Take 1 tablet by mouth daily at bedtime. ALLERGIES No Known Allergies (home) [phone] (cell) Last Office Visit Date: 12/10/2024 Last Distance Health Visit: Visit date not found Future Appointment: 02/04/2025 The patients preferred pharmacy has been captured for this encounter? yes Request is for script(s) to be escript to pharmacy. Mckenzie Lombardo LPN documented in this encounterGuernsey Memorial Hospital03-13-2025 Telephone encounter Note * Telephone Encounter - Michaela Davila MA - 01/29/2025 8:47 AM EDT Please assist patient in scheduling geriatric follow up to review MRI results per Dr Santiago. [facility]03-13-2025 Miscellaneous Notes* Telephone Encounter - Michaela [...] Regards, Dillan Santiago MD documented in this encounterGuernsey Memorial Hospital03-13-2025 Telephone encounter Note * Telephone Encounter [...] appointment with me. Regards, Dillan Santiago MD [facility]03-10-2025 Miscellaneous Notes* Telephone Encounter - Michaela Davila MA - 01/26/2025 2:39 PM EDT Please see patient directions for use. Patient will run out of medication before fill date. documented in this encounterGuernsey Memorial Hospital03-10-2025 Telephone encounter Note * Telephone Encounter - Michaela Davila MA - 01/26/2025 2:39 PM EDT Please see patient directions for use. Patient will run out of medication before fill date. [facility]03-10-2025 Telephone encounter Note* Telephone Encounter - [...] Please review and advise, Kecia Red RN [facility]03-10-2025 Miscellaneous Notes* Telephone Encounter - Kecia [...] advise, Kecia Red RN documented in this encounterGuernsey Memorial Hospital03-08-2025 History of Present illness Narrative* Manisha [...] PATIENT PRESENTS WITH AN IMPLANTABLE OR ATTACHED YARN HAULER: No RADIOLOGY DEPARTMENT: MR; Exam(s) Completed: Head: Routine Brain (QUANT) PERIPHERAL IV DATA: Not applicable SIGNED BY: ROGELIO Osborne)(MR) January 24, 2025 1:31 PM documented in this encounterGuernsey Memorial Hospital03-08-2025 NoteHNO ID: [id number] Author: MANISHA JOSEPH RT (R) Service: Radiology Author Type: Technologist Type: Progress [...] PATIENT PRESENTS WITH AN IMPLANTABLE OR ATTACHED YARN HAULER: No RADIOLOGY DEPARTMENT: MR; Exam(s) Completed: Head: Routine Brain (QUANT) PERIPHERAL IV DATA: Not applicable SIGNED BY: RT [place](Mae)(MR) January 24, 2025 1:31 [facility] Telephone encounter Note* Telephone Encounter - Mariposa Salinas APRN.CNP - 01/22/2025 3:[address] [facility] website checked and validated. All prescriptions have been APPROPRIATELY filled. No suspiciousactivity was identified. 01/22/2025 by Mariposa Salinas APRN.CNP [facility]03-06-2025 Miscellaneous Notes* Telephone Encounter - Mariposa Salinas APRN.CNP - 01/22/2025 3:[address] [facility] website checked and validated. All prescriptions have been APPROPRIATELY filled. No suspiciousactivity was identified. 01/22/2025 by Mariposa Salinas APRN.CNP * Telephone Encounter [...] you. Radha Haro LPN. documented in this encounterGuernsey Memorial Hospital03-05-2025 Telephone encounter Note * Telephone Encounter [...] Please advise. Thank you. Radha Haro LPN. [facility]02-13-2025 Telephone encounter Note* Telephone Encounter - [...] Cruz LPN January 01, 2025 8:02 AM [facility]02-13-2025 Miscellaneous Notes* Telephone Encounter - Jada [...] 01, 2025 8:02 AM documented in this encounterGuernsey Memorial Hospital02-06-2025 Telephone encounter Note * Telephone Encounter - Nusrat Palmer LPN - 12/25/2024 12:50 PM EST Received one lab from [facility] via [employer]. Uploaded to aitainment via [employer]. Nusrat Palmer LPN [facility]02-06-2025 Miscellaneous Notes* Telephone Encounter - Nusrat Palmer LPN - 12/25/2024 12:50 PM EST Received one lab from [facility] via [employer]. Uploaded to [employer] via [employer]. Nusrat Palmer LPN * Telephone Encounter - Nusrat Palmer LPN - 12/23/2024 4:45 PM EST Faxed signed Authorization to Disclose Health Information to [facility] to office of Dr. Ovalle for urological records. Nusrat Palmer LPN documented in this encounterGuernsey Memorial Hospital02-04-2025 Telephone encounter Note * Telephone Encounter - Nusrat Palmer LPN - 12/23/2024 4:45 PM EST Faxed signed Authorization to Disclose Health Information to [facility] to office of Dr. Ovalle for urological records. Nusrat Palmer LPN [facility]02-04-2025 NoteHNO ID: [id number] Author: GRAZYNA BRIGHT RN Service: ? Author Type: Physician Temporary Administrative Assistant Type: Progress Notes Filed: 05/19/2025 09:06 Note Text: [facility] [place] [facility] NEW PATIENT CLINIC NOTE (F) SERVICE DATE: [...] - ICD9: V47.4, ICD10: R39.89 > Uses 14 f CIC 4 times per day, for permanent urinary reten (more content not included)...[facility]02-04[facility] History of Present illness Narrative* Tom Baltazar PA-C - 12/23/2024 10:59 AM EST Images from the original note were not included. [facility] [place] [facility] NEW PATIENT CLINIC NOTE [...] Chronic stable, > 1 year Appt w/ B. VADIM Baltazar MT, PA-C for annual follow-up and refills. VADIM Stanford MT, PA-C documented in this encounterGuernsey Memorial Hospital01-28-2025 Miscellaneous Notes* Telephone Encounter - Colten Greer MA - 12/16/2024 2:33 PM EST Spoke with Giovanni at [facility]. Once he has seen the patient and admitted into their program, he will be faxing forms for Dr. Santiago to sign. Patient's daughter informed and we will await forms. Colten Greer MA * Telephone Encounter - Mckenzie Lombardo LPN - 12/12/2024 2:28 PM EST Called [facility] for 2nd time, left message with Intake. To call office back [place]# [phone] Mckenzie Lombardo LPN December 12, 2024 2:29 PM * Telephone Encounter - Colten Greer MA - 12/10/2024 2:10 PM EST Patient's daughter states that [facility] needs something from Dr. Santiago that its ok for patient to attend but not sure what exactly is needed. Phone call to [facility] for intake to contact our office to see what information they need from us. Colten Greer MA documented in this encounterGuernsey Memorial Hospital01-28-2025 Telephone encounter Note * Telephone Encounter - Colten Greer MA - 12/16/2024 2:33 PM EST Spoke with Giovanni at [facility]. Once he has seen the patient and admitted into their program, he will be faxing forms for Dr. Santiago to sign. Patient's daughter informed and we will await forms. Colten Greer MA [facility]01-27-2025 Telephone encounter Note* Telephone Encounter - Mariposa Salinas APRN.CNP - 12/15/2024 7:[address] [facility] website checked and validated. All prescriptions have been APPROPRIATELY filled. No suspiciousactivity was identified. 12/15/2024 by Mariposa Salinas APRN.ARIEL [facility]01-27-2025 Miscellaneous Notes* Telephone Encounter - Mariposa Salinas APRN.CNP - 12/15/2024 7:[address] [facility] website checked and validated. All prescriptions have been APPROPRIATELY filled. No suspiciousactivity was identified. 12/15/2024 by Mariposa Salinas APRN.ARIEL * Telephone Encounter - Mckenzie Lombardo LPN - 12/12/2024 3:16 PM EST Patient Ganiparahart message requesting the following refill Refill(s) Requested: Requested Prescriptions Pending Prescriptions Disp Refills clonazePAM (KLONOPIN) 0.5 mg tablet 45 tablet 0 Sig: Take 1 tablet by mouth three times a day as needed for anxiety for up to 30 days. ALLERGIES No Known Allergies (home) [phone] (cell) Last Office Visit Date: 11/05/2024 Last Distance Health Visit: Visit date not found Future Appointment: 02/04/2025 The patients preferred pharmacy has been captured for this encounter? yes Request is for script(s) to be escript to pharmacy. Mckenzie Lombardo LPN documented in this encounterCleveland [id number] Telephone encounter Note * Telephone Encounter - Mckenzie Lomabrdo LPN - 12/12/2024 3:16 PM EST Patient MyChart message requesting the following refill Refill(s) Requested: Requested Prescriptions Pending Prescriptions Disp Refills clonazePAM (KLONOPIN) 0.5 mg tablet 45 tablet 0 Sig: Take 1 tablet by mouth three times a day as needed for anxiety for up to 30 days. ALLERGIES No Known Allergies (home) [phone] (cell) Last Office Visit Date: 11/05/2024 Last Distance Health Visit: Visit date not found Future Appointment: 02/04/2025 The patients preferred pharmacy has been captured for this encounter? yes Request is for script(s) to be escript to pharmacy. Mckenzie Lombardo LPN [facility]01-24-2025 Telephone encounter Note* Telephone Encounter - Mckenzie Lombardo LPN - 12/12/2024 2:28 PM EST Called [facility] for 2nd time, left message with Intake. To call office back Marin# [phone] Mckenzie Lombardo LPN December 12, 2024 2:29 PM [facility]01-22-2025 Telephone encounter Note* Telephone Encounter - Colten Greer MA - 12/10/2024 2:10 PM EST Patient's daughter states that [facility] needs something from Dr. Santiago that its ok for patient to attend but not sure what exactly is needed. [facility] contact [facility] office to see what information they need from us. Colten Greer MA [facility]01-22-2025 NoteHNO ID: [id number] Author: COLTEN GREER MA Service: ? Author Type: Linux Architect Type: Progress Notes Filed: 12/10/2024 17:10 Note Text: Patient presents for geriatric consult with daughter Teodora. Rooming intake completed with patient and Teodora to ensure accuracy. PHQ-9 and MOCA reviewed with patient and entered into questionnaires. Colten Greer [facility]01-22-2025 History of Present illness Narrative* Colten Greer MA - 12/10/2024 1:11 PM EST Patient presents for geriatric consult with daughter Teodora. Rooming intake completed with patient and Teodora to ensure accuracy. PHQ-9 and MOCA reviewed with patient and entered into questionnaires. Colten Greer MA * Dillan Santiago MD - 12/10/2024 12:54 PM EST [facility] Initial Consult [...] on her own. They are looking into [facility]. Have cameras installed so they [...] she knows and feels. Just moved to [place] where her daughter lives after needing to sell her 3 story home to allow her to continue to live independently. [facility] Is now in her own 1 level apartment. Needs assistance with medication dispensing and is needing support to drive herto appointments and to the store. Is hoping to go to [employer] a few times a week as well. [...] UTIs and followed with a urologist in [place]. Denies abdominal pain, fever, chills, or dark/foul [...] secure location? No Social History: Primary language: Nauruan Marital Status: Living situation: Home w/ Family Socially engaged? (participates in activities such as clubs, episcopalian, community center, sports, games, visiting friends/relatives, etc?): YES once a week she goes out. 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 NO [...] , Taking? Yes, Authorizing Provider Mariposa Salinas APRN.POSTAL INSPECTOR Medication escitalopram oxalate (LEXAPRO) 20 mg tablet, Sig Take 1 tablet by mouth once daily., Start Date 11/05/24, End Date , Taking? Yes, Authorizing Provider Mariposa Salinas APRN.POSTAL INSPECTOR Medication traZODone (DESYREL) 50 mg tablet, Sig Take 1 tablet by mouth daily at bedtime., Start Date 11/05/24, End Date , Taking? Yes, Authorizing Provider Mariposa Salinas APRN.POSTAL INSPECTOR Medication clonazePAM (KLONOPIN) 0.5 mg tablet, Sig Take 1 tablet by mouth three times a day as needed for anxiety for up to 30 days., Start Date 11/05/24, End Date 12/05/24, Taking? , Authorizing Provider Mariposa Salinas APRN.POSTAL INSPECTOR Other OTC med/supplements: None Medication Review: - ANY HIGH RISK MEDICATIONS (STOPP CRITERIA): NO ALLERGIES No Known Allergies Review of Systems Difficulty chew/swallow: No Pain: No Tremor: No Incontinence - During the last 3 months did you leak urine? NO Constipation/Change in bowel habits: NO Vision No vision problems reported Follows with plate inspector:YES Hearing - Hearing aid : Denies any [...] yes Shuffling: NO Tremors: NO Slowness: yes Lenin Cognitive Exam (MOCA): CDR Dementia Scale 1) [...] measurable memory loss with MOCA score of ... Patient does have functional impairment in her instrumental activities of daily living . 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 She is on klonopin for the past 3 years after the of her daughter and this could be contributing to her issues a little CDR 2 FAST 6/7. Patient and family are looking for preservation [...] encouraged to make her paper work for [employer] and living mike. REFERRALS AND RECOMMENDATIONS 1. Discussed the cognitive benefits of memory exercises and reviewed examples 2. Discussed the cognitive benefits of physical exercise and socialization Dillan Santiago MD [facility] documented in [facility] encounterGu[facility]sey [facility]01[facility]25 NoteHNO ID: [id number] Author: DILLAN SANTIAGO MD Service: ? Author Type: Physician Type: Progress Notes Filed: 12/10/2024 17:10 Note Text: [facility] Initial Consult Michaela Brandt is [...] on her own. They are looking into [facility]. Have cameras installed so they [...] she knows and feels. Just moved to [place] where her daughter lives after needing to sell her 3 story home to allow her to continue to live independently. [facility] Is now in her own 1 level apartment. Needs assistance with medication dispensing and is needing support to drive her to appointments and to the store. Is hoping to go to [employer] [place] a few times a week as well. [...] UTIs and followed with a urologist in [place]. Denies abdominal pain, fever, chills, or dark/foul [...] secure location? No Social History: Primary language: Nauruan Marital Status: Living situation: Home w/ Family Socially engaged? (participates in activities such as clubs, episcopalian, community center, sports, games, visiting friends/relatives, etc?): YES once a week she goes out. 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 NO [...] (LEXAPRO) 20 m (more content not included)... [facility]01-03-2025 Telephone encounter Note* Telephone Encounter - Mariposa Salinas APRN.CNP - 11/21/2024 1:10 PM EST Recently filled by Dr. Kaiden Salinas APRN.CNP [facility]01-03-2025 Miscellaneous Notes* Telephone Encounter - Mariposa Salinas APRN.CNP - 11/21/2024 1:10 PM EST Recently filled by Dr. Kaiden Salinas APRN.CNP * Telephone Encounter - Rosaura Melchor MD - 11/16/2024 8:12 PM EST RX filled 11/13 per PDMP Ludin Richey prescribed med Kevin Monge also sent RX 11/05 Check with patient if got RX. If not, check with pharmacy * Telephone Encounter - Mckenzie Lombardo LPN - 11/14/2024 8:16 AM EST Family member [employer] message requesting the following refill Refill(s) Requested: Requested Prescriptions Pending Prescriptions Disp Refills clonazePAM (KLONOPIN) 0.5 mg tablet 45 tablet 0 Sig: Take 1 tablet by mouth three times a day as needed for anxiety for up to 30 days. ALLERGIES No Known Allergies (home) [phone] (cell) Last Office Visit Date: 11/05/2024 Last Distance Health Visit: Visit date not found Future Appointment: 02/04/2025 The patients preferred pharmacy has been captured for this encounter? yes Request is for script(s) to be escript to pharmacy. Mckenzie Lombardo LPN documented in [facility] encounterGu[facility]12[facility]24 Telephone encounter Note * Telephone Encounter - Rosaura Melchor MD - 11/16/2024 8:12 PM EST RX filled 11/13 per PDMP Ludin Richey prescribed med Kevin Mariposa also sent RX 11/05 Check with patient if got RX. If not, check with pharmacy [facility] Work Phone: [phone]) 723-818512-27-2024 Telephone encounter Note* Telephone Encounter - Mckenzie Lombardo LPN - 11/14/2024 8:16 AM EST Family member [employer] message requesting the following refill Refill(s) Requested: Requested Prescriptions Pending Prescriptions Disp Refills clonazePAM (KLONOPIN) 0.5 mg tablet 45 tablet 0 Sig: Take 1 tablet by mouth three times a day as needed for anxiety for up to 30 days. ALLERGIES No Known Allergies (home) [phone] (cell) Last Office Visit Date: 11/05/2024 Last Distance Health Visit: Visit date not found Future Appointment: 02/04/2025 The patients preferred pharmacy has been captured for this encounter? yes Request is for script(s) to be escript to pharmacy. Mckenzie Lombardo LPN [facility]12-19-2024 Telephone encounter Note* Telephone Encounter - Jada Dela Cruz LPN - 11/06/2024 8:39 AM EST Received a request from pt's pharmacy. See message from pharmacy. Jada Dela Cruz LPN [facility]12-19-2024 Miscellaneous Notes* Telephone Encounter - Jada Dela Cruz LPN - 11/06/2024 8:39 AM EST Received a request from pt's pharmacy. See message from pharmacy. Jada Dela Cruz LPN documented in this encounterGuernsey [facility] Hospital12-18-2024 NoteHNO ID: [id number] Author: MARIPOSA SALINAS APRN.POSTAL INSPECTOR Service: ? Author Type: Nurse Practitioner Type: Progress Notes Filed: 11/05/2024 15:38 Note Text: CC: Patient presents with: Establish Care: Establish Care HPI Michaela Brandt is a 84 year old female who presents today for establish care. Just moved to [place] where her daughter lives after needing to sell her 3 story home to allow her to continue to live independently. [facility] Is now in her own 1 level apartment. Needs assistance with medication dispensing and is needing support to drive her to appointments and to the store. Is hoping to go to [employer] a few times a week as well. [...] UTIs and followed with a urologist in [place]. Denies abdominal pain, fever, chills, or dark/foul [...] Never done Influenza Vaccine(1) Never done Covid-19 Vaccine( - season) due on 07/20/2024 DATA REVIEWED: Outside [...] 311, ICD10: F41.9, F32.A (more content not included)...[facility]12-18-2024 History of Present illness Narrative* Rita, ALEX Monge.POSTAL INSPECTOR - 11/05/2024 2:39 PM EST CC: Patient presents with: Establish Care: Establish Care HPI Michaela Brandt is a 84 year old female who presents today for establish care. Just moved to [place] where her daughter lives after needing to sell her 3 story home to allow her to continue to live independently. [facility] Is now in her own 1 level apartment. Needs assistance with medication dispensing and is needing support to drive herto appointments and to the store. Is hoping to go to [employer] a few times a week as well. [...] UTIs and followed with a urologist in [place]. Denies abdominal pain, fever, chills, or dark/foul [...] GERIATRICS - Reviewed concept of neurochemical imbalance wt depression/anxiety, treatment options and benefits of counseling in combination with medication. Also reviewed benefits of sleep hygeine, diet and exercise - Follow-up in 3 months or sooner as needed - Instructed patient to contact office or [id number] after-hours promptly should condition worsen or any new symptoms appear. - Counseling Center [facility] and after hours crisis line 3. [...] on exam table due to balance - NON-[facility] - CONSULT TO GERIATRICS 5. Ambulates with cane - ICD9: V46.8, ICD10: Z99.89 As above - NON[facility] - CONSULT TO GERIATRICS 6. Concern about memory - ICD9: V65.5, ICD10: Z71.1 Patient denies but did have moments of not remembering past information correctly. Daughter feels memory is a concern. - lives alone so needs medication dispenser to help patient appropriately take her medications. - NON[facility] - COMPREHENSIVE METABOLIC PANEL - [...] for her to independently bathe herself. - NON[facility] - CONSULT TO GERIATRICS 10. [...] plan. Mariposa Salinas APRN.CNP documented in this encounterProcious ClinicDisbeth [facility] summary Author Domingo Darby [facility] Note Date/Time May 17, 2025 11:3 3am [facility] Medical Records Department [address] [place] [address] Emergency Department Summary 05/17/25 MR#: [id number] Acct: [id number] Name: MICHAELA BRANDT Rep #:[id number] : 1940 84 From: Domingo Darby MD PCP: Dr. Dillan Santiago MD Status:REG E R Location: ED HPI History of Present Illness Chief Complaint: Confusion Informant: patient and family (Daughter) Onset/Context/Timing Onset: Days Context: Gradual Onset Timing: Continuous Current Severity: Mild Maximum Severity: Mild Narrative Narrative: 84-year-old female history of prior left hip fracture in February. Dementia. Self-catheterization and hypertension. She lives in an apartment. Daughter as healthy is here to help her occupational and physical therapy and some custodial. They also have cameras in and keep an eye on her and daughter lives very close to her. Daughter states the last couple days she has had some mild change in her mental status she is concerned she has a recurrent UTI they have had similar symptoms like this in the past when she gets urinary tract infections. Denies fever. Denies vomiting or diarrhea. No recent fall or headtrauma. Patient denies any complaints. Patient has had urinary tract infections this year and has been on antibiotics. Typically was treated as an outpatient. Prior similar symptoms: Yes Recent [facility] Medical History Closed intertrochanteric fracture of left hip Fall Hypothyroidism Anxiety Dementia Self-catheterizes urinary bladder Hypertension Back pain Home Medications ?Medication ?Instructions ?Recorded ?Last Taken ?Type ascorbic acid (vitamin C) 500 mg 500 mg PO DAILY suppl ement 03/01/25 03/04/25 History tablet (C-500) donepezil 10 mg tablet 10 mg PO DAILY dementia 02/1703/04/25 History escitalopram oxalate 20 mg tablet 20 mg PO DAILY anxie ty 03/01/25 03/03/25 History levothyroxine 50 mcg tablet 50 mcg PO DAILY thyroid 03/04/25 History trazodone 50 mg tablet 50 mg PO QHS anxiety 5 03/03/25 History acetaminophen 500 mg tablet 1,000 mg (2 x 500 mg) PO Q 8 #0 tabs 03/16/25 Unknown Rx apixaban 5 mg tablet (Eliquis) 5 mg PO BID #0 tabs Unknown Rx sennosides 8.6 mg-docusate sodium 1 tab PO BID #0 tabs 03/16/25 Unknown Rx 50 mg tablet (Stimulant Laxative Plus) tramadol 50 mg tablet 50 mg PO Q6H PRN PRN Pain Sc ore 03/16/25 Unknown Rx 1-5 3 days #12 tabs cephalexin 500 mg capsule 500 mg PO Q6 7 days #28 CAPS ULES 05/17/25 Unknown Rx Allergy/AdvReac Type Severity Reaction Status Date / Time No Known Allergies Allergy Verified 05/17/25 09:33 Family History Other Hypertension Surgical History H/O: hysterectomy Status post right knee replacement Social History household members: none housing: apartment current occupational status: retired other: Daughter lives a few doors down helps her on a regular basis Smoking Status: Never smoker alcohol intake: never substance use type: does not use ROS ROS ED ROS Narrative No recent illness. No vomiting or diarrhea. No fever. No dysuria. Constitutional Constitutional ED: Denies chills or fever(s) Eyes Eyes: Denies blurry vision ENT ENT ED: Denies ear pain Cardiovascular Cardiovascular: Denies chest pain Respiratory/Chest Respiratory/Chest: Denies cough or dyspnea Gastrointestinal Gastrointestinal: Reports other; Denies abdominal pain, constipation, diarrhea, melena, nausea or vomiting Genitourinary Genitourinary ED: Denies dysuria or hematuria Musculoskeletal Musculoskeletal: Denies arthralgias Integumentary Denies abscess Neurologic Neurologic: Denies headache(s) Psychiatric Psychiatric: Reports depression Endocrine Endocrinology: Denies cold intolerance Hematologic/Lymphatic Hematologic/Lymphatic: Reports none Allergic/Immunologic Allergic/Immunologic ED: Denies mouth swelling, tongue swelling or urticaria EXAM Physical Exam Narrative Exam Narrative: 84-year-old female sitting upright in bed. No acute distress. Daughter at bedside. Vital signs are stable afebrile. Pulse ox 100% on room air no hypoxia. H EENT exam pupils are reactive light. Moist membranes. No trauma. Neck no tender. No lymphadenopathy. Lungs clear to auscultation bilaterally. Heart regular rhythm rate about 70 no murmur. Chest wall ribs nontender. Abdomen soft nontender. Moving all 4 extremities. Calves are nontender withoutedema or cords. Back nontender. Neurologically she is awake. She is alert. She is answering questions. Following commands. She does have some dementia. Const Vital Signs: 05/17/25 09:32 Temperature 96.9 F L Temperature Source Temporal Pulse Rate 71 Respiratory Rate 16 Blood Pressure 153/61 H Blood Pressure Mean 91 Pulse Ox 100 Oxygen Delivery Method Room Air Positive well nourished and well developed; Negative for obese, cachectic, contractures or unkempt General Appearance ED: well developed and NAD; Negative for unkempt, cachectic, contractures, cyanotic, diaphoretic or pallor Nutritional Appearance: Negative for cachectic or obese HEENT Reports moist mucous membranes Negative for trauma or tenderness Eyes PERRL and EOMs intact bilaterally Neck no lymphadenopathy, supple and no JVD Chest Wall inspection of chest normal and palpation of chest normal Resp normal respiratory effort and clear to auscultation bilaterally Effort and Inspection: Negative for retractions Auscultation: Negative for rales, rhonchi, wheezes or diminished lung sounds Cardio regular rate, regular rhythm, S1 normal heart sound, S2 normal heart sound and no murmurs Rate: Negative for bradycardia or tachycardic GI normal to inspection, nondistended, normoactive bowel sounds, non-tender, non-distended and no masses Auscultation: normoactive bowel sounds Palpation: soft; Negative for tender, guarding or rebound tenderness present Back/Spine no CVA tenderness General Back: Negative for CVA tenderness Cervical Spine: Negative for cervical spine tenderness Thoracic Spine / Upper Back: Negative for thoracic spinal tenderness or paraspinal muscle tenderness Lumbar Spine / Lower Back: Negative for lumbar spinal tenderness Extremity normal to inspection General Extremety ED: Negative for edema or tenderness General Extremity: Negative for edema Neuro oriented x3 and CN's II-XII intact bilaterally Sensorium / Orientation: alert; Negative for orientation impaired Motor Exam: strength 5/5 throughout Psych mental status grossly normal Appearance: Negative for unkempt Attitude: No agitated Mood & Affect: depressed; Negative for anxious or tearful Skin no rashes or lesions noted and no wounds General Skin Exam: Negative for jaundice or pallor Rashes: No rashes noted Trauma: Negative for abrasion Wounds: Negative for wounds noted MDM MDM MDM Narrative Medical decision making narrative: [id number] female with dementia lives at home with a lot of assistance and assistance from her daughter who is at bedside. May or may not have a UTI. Straight cath for UA and screening labs. Otherwise her exam is benign. Repeat exam patient is doing well At 11:25 AM. No change in exam. Discussed test results with daughter. She be placed on Keflex per daughter request because she has done well with it in the past. 4 times a day for a week. Firstdose given here. Prescription sent to her pharmacy. Culture was sent. History & Record Review Discussion w/independent historian: Patient and Family Additional record(s) reviewed:: Prior inpatient record, Prior outpatient record,Prior ED visit and Prior labs Lab Data Attestation: I reviewed the patient's lab results. Lab results narrative: CBC shows white count 8. H&H 12 and 36. Platelets 181. Urinalysis shows positive nitrites. 50-100 white cells. No squamous cells no bacteria. Culture will be sent. Chemistry shows sodium 142. Gap 12. Normal BUN and creatinine. Glucose 97. Labs: Laboratory Results - last 24 hr 05/17/25 10:06 WBC 8.8 RBC 4.17 L Hgb 12.5 Hct 36.5 L MCV 87.5 MCH 30.0 MCHC 34.2 RDW Std Deviation 41.9 RDW Coeff of Leslie 13.1 Plt Count 181 MPV 10.4 Immature Gran % (Auto) 0.500 Neut % (Auto) 78.8 H Lymph % (Auto) 14.1 L Queens % (Auto) 5.1 Eos % (Auto) 0.9 Baso % (Auto) 0.6 Absolute Neuts (auto) 6.9 Absolute Lymphs (auto) 1.24 Nucleated RBC % 0 Sodium 142 Potassium 3.9 Chloride 104 Carbon Dioxide 26.5 Anion Gap 12 BUN 15 Creatinine 0.96 Est GFR (MDRD) Non-Af 58 L BUN/Creatinine Ratio 15.6 Glucose 97 Calcium 9.0 Urine Color Yellow Urine Clarity Clear Urine pH 6.0 Ur Specific [place] 1.020 Urine Protein 30 H Urine Glucose (UA) Normal Urine Ketones Negative Urine Occult Blood 10 H Urine Nitrite Positive H Urine Bilirubin Negative Urine Urobilinogen Normal Ur Leukocyte Esterase 100 H Urine RBC 0-5 SEEN Urine WBC 50-100 SEEN Ur Squamous Epith Cells 0-5 SEEN Urine Bacteria 0 SEEN Urine Mucus 0 SEEN Discharge Plan Triage Chief Complaint: Confusion ED Provider: Domingo Darby Dx/Rx/DC Orders Clinical Impression: Acute UTI, History of dementia, History of hypertension Instructions: UTIs Prescriptions: New cephalexin 500 mg capsule 500 mg PO Q6 7 Days Qty: 28 0RF No Action acetaminophen 500 mg Tablet 1,000 mg PO Q8 Qty: 0 0RF sennosides-docusate sodium [Stimulant Laxative Plus] 8.6-50 mg Tablet 1 tab PO BID Qty: 0 0RF Eliquis 5 mg Tablet 5 mg PO BID Qty: 0 0RF tramadol 50 mg Tablet 50 mg PO Q6H PRN PRN (Reason: Pain Score 1-5) 3 Days Qty: 12 0RF trazodone 50 mg tablet 50 mg PO QHS donepezil 10 mg tablet 10 mg PO DAILY levothyroxine 50 mcg tablet 50 mcg PO DAILY escitalopram oxalate 20 mg tablet 20 mg PO DAILY Patient Comments: PT TAKES AT BEDTIME. ascorbic acid (vitamin C) [C-500] 500 mg tablet 500 mg PO DAILY Primary Care Provider: Dillan Santiago Referrals: Dillan Santiago MD [Primary Care Provider] - As Needed Activity Restrictions/Additional Instructions: Plenty of fluids and cranberry juice. It appears that she has a UTI. Urine culture was sent. She will be started on antibiotic Keflex 1 pill 4 times a day for 1 week. Follow-up with your doctor if not improving or return if worse. Print Language: Nauruan Disposition Disposition: Home, Self Care What to do if you have Problems For any increased pain, shortness of breath, bleeding, nausea or vomiting, chestpain, or any unexpected problems, contact your Primary Care Provider. Call [facility] ([phone]) or report to the closest Emergency Room. Call 911 if necessary. 05/17/25 1133 <Electronically signed by Domingo Darby MD> Cosigner Signature (if applicable): CC: Dr. Dillan Santiago MD ~ Signed [facility] Work Phone: Evaluation note* Diagnosis Onset Date Resolution Status Osteoarthritis of knees, bilateral noneactive [facility] Work Phone: Evaluation [...] Other urinary problems documented in this encounter [facility]* Diagnosis Hypothyroidism, unspecified type documented in this encounter [facility]* Diagnosis Hypothyroidism, unspecified type documented in this encounter [facility]* Diagnosis Anxiety and depression Dysthymic disorder [facility] Diagnosis Anxiety and depression Dysthymic disorder documented in this encounter [facility]* Diagnosis Cognitive impairment, mild, so stated- Primary Mild cognitive impairment, so stated Self-catheterizes urinary bladder Other specified conditions influencing health status Balance disorder Other symptoms involving nervous and musculoskeletal systems Concern about memory Anxiety and depression Dysthymic disorder Assistance needed for bathing Ambulates with cane [facility] Diagnosis Anxiety and depression Dysthymic disorder [facility] Diagnosis Anxiety and depression Dysthymic disorder [facility]* Diagnosis Retention of urine, unspecified- Primary Self-catheterizes urinary bladder Other specified conditions influencing health status Urinary problem Other urinary problems [facility]* Diagnosis Anxiety and depression Dysthymic disorder [facility] Diagnosis Ambulatory dysfunction- Primary Difficulty in walking documented in this encounter [facility]* Diagnosis Anxiety and depression Dysthymic disorder documented in this encounter [facility]* Diagnosis Cognitive impairment, mild, so stated Mild cognitive impairment, so stated documented in this encounter [facility]* Diagnosis Anxiety and depression Dysthymic disorder [facility]* Diagnosis 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, psychotic disturbance, mood disturbance, or anxiety ([facility])- Primary Impacted cerumen, right ear Insomnia due to mental disorder Generalized anxiety disorder documented [facility]* Diagnosis Impacted cerumen of right ear- Primary Impacted cerumen documented in this encounter [facility] note* Diagnosis Recurrent UTI (urinary tract infection)- Primary Urinary tract infection, site not specified documented in this encounter [facility] note* Diagnosis Urinary frequency- Primary documented in this encounter [facility] note* Diagnosis Anxiety and depression Dysthymic disorder documented in this encounter [facility] note* Diagnosis 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, psychotic disturbance, mood disturbance, or anxiety ([facility])- Primary Ambulatory dysfunction Difficulty in walking documented in this encounter [facility] note* Diagnosis Onset Date Resolution Status Admit Date Acute pain of left knee acute A pril 2024 1:47pm Closed intertrochanteric fra cture of left hip acute March 01, 2025 1:47pm Fall acute March 01 1:47pm [facility] Work Phone: Evaluation note* Diagnosis Ambulatory dysfunction- Primary Difficulty in walking Weakness of both lower extremities Balance disorder Other symptoms involving nervous and musculoskeletal systems S/P hip hemiarthroplasty Hip joint replacement by other means Closed fracture of left hip with delayed healing, subsequent encounter 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) Pressure injury of sacral region, unstageable ([facility]) Urinary catheter in place Other postprocedural status Malnutrition, unspecified type (HCC) Anxiety and depression Dysthymic disorder Insomnia, unspecified type Acute deep vein thrombosis (DVT) of proximal vein of left lower extremity (HCC) Chronic anticoagulation Long-term (current) use of anticoagulants Pressure injury of left buttock, stage 3 (HCC) documented in this encounter [facility]* Diagnosis Onychomycosis- Primary Dermatophytosis of nail [facility] Diagnosis Hypothyroidism, unspecified type Anxiety and depression Dysthymic disorder [facility] Diagnosis Acute heart failure, unspecified heart failure type (HCC)- Primary Prediabetes Other abnormal glucose Urinary retention Retention of urine, unspecified Acute deep vein thrombosis (DVT) of calf muscle vein of left lower extremity ([facility]) Edema, unspecified type Self-catheterizes urinary bladder Other specified conditions influencing health status Weakness of both lower extremities S/P hip hemiarthroplasty Hip joint replacement by other means [facility] Diagnosis Recurrent UTI- Primary Urinary tract infection, site not specified 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 ([facility]) Anxiety and depression Dysthymic disorder Acute heart failure, unspecified heart failure type (HCC) Self-catheterizes urinary bladder Other specified conditions influencing health status Urinary retention Retention of urine, unspecified Onychomycosis Dermatophytosis of nail Thickened nail Other specified disease of nail Acquired deformity of toe, unspecified laterality IGTN (ingrowing toe nail) Ingrowing nail [facility]* Physical Therapy Referral Location: None [facility] Work Phone: Hospital Discharge instructionsAdditional Instructions Plenty of fluids and cranberry juice. It appears that she has a UTI. Urine culture was sent. She will be started on antibiotic Keflex 1 pill 4 times a day for 1 week. Follow-up with your doctor if not improving or return if worse.[facility] Work Phone: [facility] for referral (narrative)No reason for referral information availableWSt. Rita's Hospital Work Phone: Reason for visit Narrative* MRI/CT (Routine) - Closed Specialty Diagnoses / Procedures Referred By Paola t Referred To Contact MR IMAGING Diagnoses Cognitive impairment, mild, so stated Procedures MRI BRAIN W QUANT WO IVCON MRI BRAIN BRAIN STEM W/O CONTRAST MATERIAL Dillan Santiago MD [address] [place] [address] Phone: tel: fax: [place] [id number] Referral ID Status Reason Start Date Expiration Date V isits Requested Visits Authorized [id number] Closed Auto-Generate d Referral 12/10/2024 01/09/2026 1 1 [facility] Summary Purpose Family History Relationship Condition Age at Onset Recorded Date/T aaliyah Not Specified Malignant neoplasm of prostate Unknown Relationship Condition Age at Onset Recorded Date/T aaliyah Not Specified Hypertension Unknown Advance Directives Advance Directive Response Recorded Date/ Time Advance Directives Yes October 6:36am Documents on File Type Date Recorded Patient Director Business Development Expl anation Advance Directive(s) 11/24/2024 11:36 AM Documents on File Type Date Recorded Patient Director Business Development Expl anation Advance Directive(s) 11/24/2024 11:36 AM Advance Directive Response Recorded Date/ Time Living Will Yes January 17, 2025 7:42pm Do you have a Healthcare Pow er of Factory Assembler? Yes January 17, 2025 7:42pm Name of Medical Power of Factory Assembler MARIBETH COLTON ALVINAEMILY January 17, 2025 7:42pm Advance Directive Response Recorded Date/ Time Living Will Yes January 17, 2025 7:42pm Do you have a Healthcare Pow er of Factory Assembler? Yes January 17, 2025 7:42pm Name of Medical Power of Factory Assembler MARIBETH COLTON ALVINAEMILY January 17, 2025 7:42pm Living Will No March 01, 2025 3:09pm Do you have a Healthcare Pow er of Factory Assembler? No March 01, 2025 3:09pm Advance Directive Response Recorded Date/ Time Living Will No March 05, 2025 10:51am Do you have a Healthcare Pow er of Factory Assembler? Yes March 05, 2025 10:51am Name of Medical Power of Factory Assembler MARIBETH SHIN, DAUGHTER March 05, 2025 10:51a m Living Will Yes January 17, 2025 7:42pm Do you have a Healthcare Pow er of Factory Assembler? Yes January 17, 2025 7:42pm Name of Medical Power of Factory Assembler MARIBETH CAGLERACHEAL January 17, 2025 7:42pm Living Will No March 01, 2025 3:09pm Do you have a Healthcare Pow er of Factory Assembler? No March 01, 2025 3:09pm Advance Directive Response Recorded Date/ Time Living Will No March 05, 2025 10:51am Do you have a Healthcare Pow er of Factory Assembler? Yes March 05, 2025 10:51am Name of Medical Power of Factory Assembler MARIBETH SHIN, DAUGHTER March 05, 2025 10:51a m Living Will Yes January 17, 2025 7:42pm Do you have a Healthcare Pow er of Factory Assembler? Yes January 17, 2025 7:42pm Name of Medical Power of Factory Assembler MARIBETH SHIN January 17, 2025 7:42pm Living Will No March 01, 2025 3:09pm Do you have a Healthcare Pow er of Factory Assembler? No March 01, 2025 3:09pm Do you have a Healthcare Pow er of Factory Assembler? Yes May 17, 2025 9:33am Advance Directive Response Recorded Date/ Time Living Will No March 05, 2025 10:51am Do you have a Healthcare Pow er of Factory Assembler? Yes March 05, 2025 10:51am Name of Medical Power of Factory Assembler MARIBETH SHIN, DAUGHTER March 05, 2025 10:51am Living Will No March 01, 2025 3:09pm Do you have a Healthcare Pow er of Factory Assembler? No March 01, 2025 3:09pm Do you have a Healthcare Pow er of Factory Assembler? Yes May 17, 2025 9:33am Chief Complaint and Reason for Visit Chief [...] 8:4 1am LABWORK March 23, 2025 5:00am LONGTERM LAB WORK March 30, 2025 5:0 0am LONGTERM LAB WORK April 06, 2025 4:0 0am Chief Complaint Admit Date confusion, urinary January [...] 8:4 1am LABWORK March 23, 2025 5:00am LONGTERM LAB WORK March 30, 2025 5:0 0am LONGTERM LAB WORK April 06, 2025 4:0 0am confusion May 17, 2025 9:31 am Chief Complaint Admit Date LEFT HIP PAIN WITH INTERTROCHANTERIC FX March 01, 2025 1:47pm LEFT HIP PAIN WITH INTERTROCHANTERIC FX March 02, 2025 11:33am LEFT HIP PAIN WITH INTERTROCHANTERIC FX March 03, 2025 2:59pm LEFT HIP PAIN WITH INTERTROCHANTERIC FX March 04, 2025 12:21pm LEFT HIP PAIN W/ INTERTROCHANTERIC FX Ap ril 2024 3:04pm LT LEG PAIN March 09, 2025 8:4 1am LABWORK March 23, 2025 5:00am ADMISSION EXAM March 24, 2025 5:00pm LONGTERM LAB WORK March 30, 2025 5:0 0am LONGTERM LAB WORK April 06, 2025 4:0 0am confusion May 17, 2025 9:31 am Chief Complaint Admit Date LEFT HIP PAIN WITH INTERTROCHANTERIC FX March 01, 2025 1:47pm LEFT HIP PAIN WITH INTERTROCHANTERIC FX March 02, 2025 11:33am LEFT HIP PAIN WITH INTERTROCHANTERIC FX March 03, 2025 2:59pm LEFT HIP PAIN WITH INTERTROCHANTERIC FX March 04, 2025 12:21pm LEFT HIP PAIN W/ INTERTROCHANTERIC FX Ap ril 2024 3:04pm LT LEG PAIN March 09, 2025 8:4 1am LABWORK March 23, 2025 5:00am ADMISSION EXAM March 24, 2025 5:00pm LONGTERM LAB WORK March 30, 2025 5:0 0am NEW CONCERN May 12th, 2025 4:30p m LONGTERM LAB WORK April 06, 2025 4:0 0am confusion May 17, 2025 9:31 am Chief Complaint Admit Date LEFT HIP PAIN WITH INTERTROCHANTERIC FX March 01, 2025 1:47pm LEFT HIP PAIN WITH INTERTROCHANTERIC FX March 02, 2025 11:33am LEFT HIP PAIN WITH INTERTROCHANTERIC FX March 03, 2025 2:59pm LEFT HIP PAIN WITH INTERTROCHANTERIC FX March 04, 2025 12:21pm LEFT HIP PAIN W/ INTERTROCHANTERIC FX Ap ril 2024 3:04pm LT LEG PAIN March 09, 2025 8:4 1am LABWORK March 23, 2025 5:00am ADMISSION EXAM March 24, 2025 5:00pm LONGTERM LAB WORK March 30, 2025 5:0 0am NEW CONCERN March 30, 2025 4:30p m LONGTERM LAB WORK April 06, 2025 4:0 0am DISCHARGE EXAM April 17, 2025 1:30p m confusion May 17, 2025 9:31 am Reason for Referral Specialty Diagnoses / Procedures Referred By Contac t Referred To Contact Gerontology Diagnoses Self-catheterizes urinary bladder Balance disorder Concern about memory Anxiety and depression Assistance needed for bathing Ambulates with cane Procedures CONSULT TO GERIATRICS OFFICE/OUTPATIENT [facility] 60 MINUTES OlderMariposa APRN.POSTAL INSPECTOR [address] [place] [address] Referral ID Status Reason Start Date Expiration Date Visits Requested Visits Authorized [id number] Authorized PCP Requested Referral 4 11/05/2025 1 1 Specialty Diagnoses / Procedures Referred By Contac t Referred To Contact Urology Diagnoses Self-catheterizes urinary bladder Unable to void Urinary problem Procedures CONSULT TO UROLOGY OFFICE/OUTPATIENT [facility] 60 MINUTES Mariposa Salinas APRN.POSTAL INSPECTOR [address] [place] [address] Referral ID Status Reason Start Date Expiration Date Visits Requested Visits Authorized [id number] Authorized PCP Requested Referral 4 11/05/2025 1 1 Specialty Diagnoses / Procedures Referred By Contac t Referred To Contact MR IMAGING Diagnoses Cognitive impairment, mild, so stated Procedures MRI BRAIN W QUANT WO IVCON MRI BRAIN BRAIN STEM W/O CONTRAST MATERIAL Dillan Santiago MD [address] [place] [address] [place] [address] Referral ID Status Reason Start Date Expiration Date Visits Requested Visits Authorized [id number] New Request Auto-Generat ed Referral 12/10/2024 01/09/2026 1 1 Additional Source Comments INFORMATION SOURCE (unrecogn ized section and content) DATE CREATED AUTHOR 12/22/2022 [facility] DATE CREATED AUTHOR AUTHOR'S ORGANIZ ATION 01/31/2024 [facility] DATE CREATED AUTHOR AUTHOR'S ORGANIZ ATION 01/26/2025 [facility] DATE CREATED AUTHOR AUTHOR'S ORGANIZ ATION 06/07/2025 [facility] DATE CREATED AUTHOR AUTHOR'S ORGANIZ ATION 06/07/2025 [facility] Teams (unrecognized sec tion and content) Team Status: Active Member Role Status Dates Ludin Richey MD Primary Care Provider Active Team Status: Inactive Member Role Status Dates Ludin Richey MD Primary Care Provider Active St art: January 17, 2024 End: January 17, 2024 Ludni Suarez MD Attending Provider Active Start: January 17, 2024 End: January 17, 2024 Manager Plumbing Relationship Specialty Start Date End Date Dillan Santiago MD [address] [place] [address] PCP - General Internal Medicine 11/05/24 Manager Plumbing Relationship Specialty Start Date End Date Dillan Santiago MD [address] [place] [address] PCP - General Internal Medicine 11/05/24 Manager Plumbing Relationship Specialty Start Date End Date Dillan Santiago MD [address] [place], [place] [address] PCP - General Internal Medicine 11/05/24 Manager Plumbing Relationship Specialty Start Date End Date Dillan Santiago MD [address] [place] [address] PCP - General Internal Medicine 11/05/24 Manager Plumbing Relationship Specialty Start Date End Date Dillan Santiago MD [address] [place] [address] PCP - General Internal Medicine 11/05/24 Manager Plumbing Relationship Specialty Start Date End Date Dillan Santiago MD [address] [place] [address] PCP - General Internal Medicine 11/05/24 Manager Plumbing Relationship Specialty Start Date End Date Dillan Santiago MD [address] [place] [address] PCP - General Internal Medicine 11/05/24 Manager Plumbing Relationship Specialty Start Date End Date Dillan Santiago MD [address] [place] [address] PCP - General Internal Medicine 11/05/24 Manager Plumbing Relationship Specialty Start Date End Date Dillan Santiago MD [address] [place] [address] PCP - General Internal Medicine 11/05/24 Manager Plumbing Relationship Specialty Start Date End Date Dillan Santiago MD [address] [place] [address] PCP - General Internal Medicine 11/05/24 Manager Plumbing Relationship Specialty Start Date End Date Dillan Santiago MD [address] [place] [address] PCP - General Internal Medicine 11/05/24 Manager Plumbing Relationship Specialty Start Date End Date Dillan Santiago MD [address] [place] [address] PCP - General Internal Medicine 11/05/24 Manager Plumbing Relationship Specialty Start Date End Date Dillan Santiago MD [address] [place] [address] PCP - General Internal Medicine 11/05/24 Mariposa Salinas APRN.POSTAL INSPECTOR [address] [place] [place] [address] Turret Lathe Set Up Operator Internal Medicine 01/30/25 Manager Plumbing Relationship Specialty Start Date End Date Dillan Santiago MD [address] [place] [address] PCP - General Internal Medicine 11/05/24 Mariposa Salinas CARTRIDGE LOADING OPERATOR.POSTAL INSPECTOR [address] [place] [place] [address] Turret Lathe Set Up Operator Internal Medicine 01/30/25 Manager Plumbing Relationship Specialty Start Date End Date Dillan Santiago MD [address] [place] [address] PCP - General Internal Medicine 11/05/24 Mariposa Salinas, CARTRIDGE LOADING OPERATOR.POSTAL INSPECTOR [address] [facility] [place] [address] Turret Lathe Set Up Operator Internal Medicine 01/30/25 Manager Plumbing Relationship Specialty Start Date End Date Dillan Santiago MD [address] [place] [address] PCP - General Internal Medicine 11/05/24 Mariposa Salinas CARTRIDGE LOADING OPERATOR.POSTAL INSPECTOR [address] [facility] [place] [address] Turret Lathe Set Up Operator Internal Medicine 01/30/25 Manager Plumbing Relationship Specialty Start Date End Date Dillan Santiago MD [address] [place] [address] PCP - General Internal Medicine 11/05/24 Mariposa Salinas APRN.POSTAL INSPECTOR [address] [facility] [place] [address] Turret Lathe Set Up Operator Internal Medicine 01/30/25 Manager Plumbing Relationship Specialty Start Date End Date Dillan Santiago MD [address] [place] [address] PCP - General Internal Medicine 11/05/24 Mariposa Salinas APRN.POSTAL INSPECTOR [address] [facility] [place] [address] Turret Lathe Set Up Operator Internal Medicine 01/30/25 Team Status: Active Member [...] Start: March 01, 2025 Dr. Roro Long DO Admit Provider Active Start : March 01, 2025 Dr. Roro Long DO Attending Provider Active S tart: March 01, 2025 Manager Plumbing Relationship Specialty Start Date End Date Dillan Santiago MD [address] [facility] [place] [address] PCP - General Internal Medicine 11/05/24 Older, ALEX Monge.POSTAL INSPECTOR [address] [facility] [place] [address] Turret Lathe Set Up Operator Internal Medicine 01/30/25 Team [...] DO Other Provider Active Start : March 01, [...] Start: March 02, 2025 Dr. Roro Long DO Admit Provider Active Start : March 02, [...] Provider Active S tart: March 09, 2025 Manager Plumbing Relationship Specialty Start Date End Date Dillan Santiago MD [address] [place] [address] PCP - General Internal Medicine 11/05/24 Mariposa Salinas APRN.POSTAL INSPECTOR [address] [facility] [place] [address] Turret Lathe Set Up Operator Internal Medicine 01/30/25 Manager Plumbing Relationship Specialty Start Date End Date Dillan Santiago MD [address] [place] [address] PCP - General Internal Medicine 11/05/24 Mariposa Salinas APRN.POSTAL INSPECTOR [address] [facility] [place] [address] Turret Lathe Set Up Operator Internal Medicine 01/30/25 Manager Plumbing Relationship Specialty Start Date End Date Dillan Santiago MD [address] [place] [address] PCP - General Internal Medicine 11/05/24 Mariposa Salinas APRN.POSTAL INSPECTOR [address] [facility] [place] [address] Turret Lathe Set Up Operator Internal Medicine 01/30/25 Manager Plumbing Relationship Specialty Start Date End Date Dillan Santiago MD [address] [place] [address] PCP - General Internal Medicine 11/05/24 Mariposa Salinas APRN.POSTAL INSPECTOR [address] [facility] [place] [address] Turret Lathe Set Up Operator Internal Medicine 01/30/25 Manager Plumbing Relationship Specialty Start Date End Date Dillan Santiago MD [address] [place] [address] PCP - General Internal Medicine 11/05/24 Mariposa Salinas APRN.POSTAL INSPECTOR [address] [place] [address] Turret Lathe Set Up Operator Internal Medicine 01/30/25 Manager Plumbing Relationship Specialty Start Date End Date Dillan Santiago MD [address] [place] [address] PCP - General Internal Medicine 11/05/24 Mariposa Salinas, CARTRIDGE LOADING OPERATOR.POSTAL INSPECTOR [address] [place] [address] Turret Lathe Set Up Operator Internal Medicine 01/30/25 Manager Plumbing Relationship Specialty Start Date End Date Dillan Santiago MD [address] [place] [address] PCP - General Internal Medicine 11/05/24 Mariposa Salinas, CARTRIDGE LOADING OPERATOR.POSTAL INSPECTOR [address] [place] [address] Turret Lathe Set Up Operator Internal Medicine 01/30/25 Team [...] Referring Provider Active Start: April 06, 2025 Manager Plumbing Relationship Specialty Start Date End Date Dillan Santiago MD [address] [place] [address] PCP - General Internal Medicine 11/05/24 Mariposa Salinas APRN.POSTAL INSPECTOR [address] [facility] [place] [address] Turret Lathe Set Up Operator Internal Medicine 01/30/25 Manager Plumbing Relationship Specialty Start Date End Date Dillan Santiago MD [address] [place] [address] PCP - General Internal Medicine 11/05/24 Mariposa Salinas APRN.POSTAL INSPECTOR [address] [facility] [place] [address] Turret Lathe Set Up Operator Internal Medicine 01/30/25 Manager Plumbing Relationship Specialty Start Date End Date Dillan Santiago MD [address] [place] [address] PCP - General Internal Medicine 11/05/24 Mariposa Salinas APRN.POSTAL INSPECTOR [address] [facility] [place] [address] Turret Lathe Set Up Operator Internal Medicine 01/30/25 Manager Plumbing Relationship Specialty Start Date End Date Dillan Santiago MD [address] [place] [address] PCP - General Internal Medicine 11/05/24 Mariposa Salinas APRN.POSTAL INSPECTOR [address] [facility] [place] [address] Turret Lathe Set Up Operator Internal Medicine 01/30/25 Manager Plumbing Relationship Specialty Start Date End Date Dillan Santiago MD [address] [place] [address] PCP - General Internal Medicine 11/05/24 Mariposa Salinas APRN.POSTAL INSPECTOR [address] [facility] [place] [address] Turret Lathe Set Up Operator Internal Medicine 01/30/25 Team Status: Active Member Role/Relationship Status Dates Dr. Dillan Santiago MD Primary Care Provider Active Team Status: Inactive Member Role/Relationship Status Dates Dr. Vadim Florence DO Attending Provider Active Start: January 17, 2025 End: January 17, 2025 Dr. Vadim Florence DO Emergency Provider Active Start: January 17, 2025 End: January 17, 2025 Dr. Dillan Santiago MD Primary Care Provider Active Start: January 17, 2025 End: January 17, 2025 Team Status: Inactive Member Role/Relationship Status Dates Dr. Dillan Santiago MD Primary Care Provider Active Start: March 01, 2025 End: March 04, 2025 Dr. Guerrero Valerio DO Emergency Provider Active Start: March 01, 2025 End: March 04, 2025 Dr. Roro Long DO Admit Provider Active Start : March 01, 2025 End: March 04, 2025 Dr. Roro Long DO Other Provider Active Start : March 01, 2025 End: March 04, 2025 Dr. Boston Rosas , Other Provider Active Start: March 01, 2025 End: March 04, 2025 Dr. Allison Tran MD Attending Provider Active Start: March 01, 2025 End: March 04, 2025 Team Status: Active Member Role/Relationship Status Dates Dr. Dillan Santiago MD Primary Care Provider Active Start: March 02, 2025 Dr. Guerrero Valerio DO Emergency Provider Active Start: March 02, 2025 Dr. Roro Long DO Admit Provider Active Start : March 02, 2025 Dr. Roro Long DO Other Provider Active Start : March 02, 2025 Dr. Boston Rosas DO Other Provider Active Start: March 02, 2025 Dr. Allison Tran MD Attending Provider Active Start: March 02, 2025 Dr. Allison Tran MD Other Provider Active St art: March 02, 2025 Team Status: Active Member Role/Relationship Status Dates Dr. Dillan Santiago MD Primary [...] March 03, 2025 Team Status: Active Member Role/Relationship Status Dates Dr. Dillan Santiago MD Primary [...] St art: March 04, 2025 Team Status: Inactive Member Role/Relationship Status Dates Dr. Dillan Santiago MD Primary Care Provider Active Start: March 04, 2025 End: March 19, 2025 Dr. Garfield Yo MD Admit Provider Active Star t: March 04, 2025 End: March 19, 2025 Dr. Garfield Yo MD Attending Provider Active Start: March 04, 2025 End: March 19, 2025 Team Status: Inactive Member Role/Relationship Status Dates Dr. Dillan Santiago MD Primary Care Provider Active Start: March 09, 2025 End: March 09, 2025 Dr. Garfield Yo MD Attending Provider Active Start: March 09, 2025 End: March 09, 2025 Dr. Garfield Yo MD Referring Provider Active Start: March 09, 2025 End: March 09, 2025 Team Status: Active Member Role/Relationship Status Dates Dr. Dillan Santiago MD Primary Care Provider Active Start: March 09, 2025 Dr. Vadim Estrada MD Attending Provider Active S tart: March 09, 2025 Dr. Garfield Yo MD Referring Provider Active Start: March 09, 2025 Team Status: Inactive Member Role/Relationship Status Dates Dr. Dillan Santiago MD Primary Care Provider Active Start: March 23, 2025 End: March 23, 2025 Adele MEEHAN MD Attending Provider Active Start: March 23, 2025 End: March 23, 2025 Team Status: Inactive Member Role/Relationship Status Dates Dr. Dillan Santiago MD Primary Care Provider Active Start: March 30, 2025 End: March 30, 2025 ANA Gamez Attending Provider Active Start: March 30, 2025 End: March 30, 2025 Team Status: Active Member Role/Relationship Status Dates Dr. Dillan Santiago MD Primary Care Provider Active Start: April 06, 2025 Adele MEEHAN MD Attending Provider Active Start: April 06, 2025 Adele MEEHAN MD Referring Provider Active Start: April 06, 2025 Team Status: Inactive Member Role/Relationship Status Dates Dr. Dillan Santiago MD Primary Care Provider Active Start: May 17, 2025 End: May 17, 2025 Dr. Domingo Darby MD Emergency Provider Active S tart: May 17, 2025 End: May 17, 2025 Manager Plumbing Relationship Specialty Start Date End Date Dillan Santiago MD [address] [facility] [place] [address] PCP - General Internal Medicine 11/05/24 Older, ALEX Monge.POSTAL INSPECTOR [address] [facility] [place] [address] Turret Lathe Set Up Operator Internal Medicine 01/30/25 Team Status: Inactive Member Role/Relationship Status Dates Dr. Dillan Santiago MD Primary Care Provider Active Start: March 01, 2025 End: March 04, 2025 Dr. Guerrero Valerio DO Emergency Provider Active Start: March 01, 2025 End: March 04, 2025 Dr. Roro Long DO Admit Provider Active Start : March 01, 2025 End: March 04, 2025 Dr. Roro Long DO Other Provider Active Start : March 01, 2025 End: March 04, 2025 Dr. Boston Rosas DO Other Provider Active Start: March 01, 2025 End: March 04, 2025 Dr. Allison Tran MD Attending Provider Active Start: March 01, 2025 End: March 04, 2025 Team Status: Active Member Role/Relationship Status Dates Dr. Dillan Santiago MD Primary Care Provider Active Start: March 02, 2025 Dr. Guerrero Valerio DO Emergency Provider Active Start: March 02, 2025 Dr. Roro Long DO Admit Provider Active Start : March 02, 2025 Dr. Roro Long DO Other Provider Active Start : March 02, 2025 Dr. Boston Rosas DO Other Provider Active Start: March 02, 2025 Dr. Allison Tran MD Attending Provider Active Start: March 02, 2025 Dr. Allison Tran MD Other Provider Active St art: March 02, 2025 Team Status: Active Member Role/Relationship Status Dates Dr. Dillan Santiago MD Primary [...] March 03, 2025 Team Status: Active Member Role/Relationship Status Dates Dr. Dillan Santiago MD Primary [...] St art: March 04, 2025 Team Status: Inactive Member Role/Relationship Status Dates Dr. Dillan Santiago MD Primary Care Provider Active Start: March 04, 2025 End: March 19, 2025 Dr. Garfield Yo MD Admit Provider Active Star t: March 04, 2025 End: March 19, 2025 Dr. Garfield Yo MD Attending Provider Active Start: March 04, 2025 End: March 19, 2025 Team Status: Inactive Member Role/Relationship Status Dates Dr. Dillan Santiago MD Primary Care Provider Active Start: March 09, 2025 End: March 09, 2025 Dr. Garfield Yo MD Attending Provider Active Start: March 09, 2025 End: March 09, 2025 Dr. Garfield Yo MD Referring Provider Active Start: March 09, 2025 End: March 09, 2025 Team Status: Active Member Role/Relationship Status Dates Dr. Dillan Santiago MD Primary Care Provider Active Start: March 09, 2025 Dr. Vadim Estrada MD Attending Provider Active S tart: March 09, 2025 Dr. Garfield Yo MD Referring Provider Active Start: March 09, 2025 Team Status: Inactive Member Role/Relationship Status Dates Dr. Dillan Santiago MD Primary Care Provider Active Start: March 23, 2025 End: March 23, 2025 Adele MEEAHN MD Attending Provider Active Start: March 23, 2025 End: March 23, 2025 Team Status: Inactive Member Role/Relationship Status Dates Dr. Dillan Santiago MD Primary Care Provider Active Start: March 24, 2025 End: March 24, 2025 Dr. Adele Gusman MD Attending Provider Active Start: March 24, 2025 End: March 24, 2025 Team Status: Inactive Member Role/Relationship Status Dates Dr. Dillan Santiago MD Primary Care Provider Active Start: May 17, 2025 End: May 17, 2025 Dr. Domingo Darby MD Attending Provider Active S tart: May 17, 2025 End: May 17, 2025 Dr. Domingo Darby MD Emergency Provider Active S tart: May 17, 2025 End: May 17, 2025 Team Status: Inactive Member Role/Relationship Status Dates Dr. Dillan Santiago MD Primary Care Provider Active Start: March 30, 2025 End: March 30, 2025 Daya Morgan [employer], [employer] Attending Provider Active Start: March 30, 2025 End: March 30, 2025 Team Status: Active Member Role/Relationship Status Dates Dr. Dillan Santiago MD Primary Care Provider Active Start: April 06, 2025 Adele MEEHAN MD Attending Provider Active Start: April 06, 2025 Adele MEEHAN MD Referring Provider Active Start: April 06, 2025 Team Status: Inactive Member Role/Relationship Status Dates Dr. Dillan Santiago MD Primary Care Provider Active Start: May 17, 2025 End: May 17, 2025 Dr. Domingo Darby MD Attending Provider Active S tart: May 17, 2025 End: May 17, 2025 Dr. Domingo Darby MD Emergency Provider Active S tart: May 17, 2025 End: May 17, 2025 Team Status: Inactive Member Role/Relationship Status Dates Dr. Dillan Santiago MD Primary Care Provider Active Start: April 17, 2025 End: April 17, 2025 Daya Morgan NP, [employer] Attending Provider Active Start: April 17, 2025 End: April 17, 2025 Team Status: Inactive Member Role/Relationship Status Dates Dr. Dillan Santiago MD Primary Care Provider Active Start: May 17, 2025 End: May 17, 2025 Dr. Domingo Darby MD Attending Provider Active S tart: May 17, 2025 End: May 17, 2025 Dr. Domingo Darby MD Emergency Provider Active S tart: May 17, 2025 End: May 17, 2025 Manager Plumbing Relationship Specialty Start Date End Date Dillan Santiago MD [address] [place] [address] PCP - General Internal Medicine 11/05/24 Mariposa Salinas APRN.POSTAL INSPECTOR [address] [place], [place] [address] Turret Lathe Set Up Operator Internal Medicine 01/30/25 Manager Plumbing Relationship Specialty Start Date End Date Dillan Santiago MD [address] [place], [place] [id number] PCP - General Internal Medicine 11/05/24 Mariposa Salinas APRN.POSTAL INSPECTOR [address] [place], [place] [address] Turret Lathe Set Up Operator Internal Medicine 01/30/25 Goals [...] or prosecute any alcohol or drug abuse patient.[facility] the event this information is protected by the Federal Confidentiality of Alcohol and Drug Abuse Patient Records regulations: The Federal rules restrict any use of the information to criminally investigate or prosecute any alcohol or drug abuse patient.[facility] HospitalIn the event this information is protected by the Federal Confidentiality of Alcohol and Drug Abuse Patient Records regulations: The Federal rules restrict any use of the information to criminally investigate or prosecute any alcohol or drug abuse patient.[facility] HospitalIn the event this information is protected by the Federal Confidentiality of Alcohol and Drug Abuse Patient Records regulations: The Federal rules restrict any use of the information to criminally investigate or prosecute any alcohol or drug abuse patient.[facility] HospitalIn the event this information is protected by the Federal Confidentiality of Alcohol and Drug Abuse Patient Records regulations: The Federal rules restrict any use of the information to criminally investigate or prosecute any alcohol or drug abuse patient.[facility] HospitalIn the event this information is protected by the Federal Confidentiality of Alcohol and Drug Abuse Patient Records regulations: The Federal rules restrict any use of the information to criminally investigate or prosecute any alcohol or drug abuse patient.[facility] HospitalIn the event this information is protected by the Federal Confidentiality of Alcohol and Drug Abuse Patient Records regulations: The Federal rules restrict any use of the information to criminally investigate or prosecute any alcohol or drug abuse patient.[facility] HospitalIn the event this information is protected by the Federal Confidentiality of Alcohol and Drug Abuse Patient Records regulations: The Federal rules restrict any use of the information to criminally investigate or prosecute any alcohol or drug abuse patient.[facility] HospitalIn the event this information is protected by the Federal Confidentiality of Alcohol and Drug Abuse Patient Records regulations: The Federal rules restrict any use of the information to criminally investigate or prosecute any alcohol or drug abuse patient.[facility] HospitalIn the event this information is protected by the Federal Confidentiality of Alcohol and Drug Abuse Patient Records regulations: The Federal rules restrict any use of the information to criminally investigate or prosecute any alcohol or drug abuse patient.[facility] HospitalIn the event this information is protected by the Federal Confidentiality of Alcohol and Drug Abuse Patient Records regulations: The Federal rules restrict any use of the information to criminally investigate or prosecute any alcohol or drug abuse patient.[facility] HospitalIn the event this information is protected by the Federal Confidentiality of Alcohol and Drug Abuse Patient Records regulations: The Federal rules restrict any use of the information to criminally investigate or prosecute any alcohol or drug abuse patient.[facility] HospitalIn the event this information is protected by the Federal Confidentiality of Alcohol and Drug Abuse Patient Records regulations: The Federal rules restrict any use of the information to criminally investigate or prosecute any alcohol or drug abuse patient.[facility] HospitalIn the event this information is protected by the Federal Confidentiality of Alcohol and Drug Abuse Patient Records regulations: The Federal rules restrict any use of the information to criminally investigate or prosecute any alcohol or drug abuse patient.[facility] HospitalIn the event this information is protected by the Federal Confidentiality of Alcohol and Drug Abuse Patient Records regulations: The Federal rules restrict any use of the information to criminally investigate or prosecute any alcohol or drug abuse patient.[facility] HospitalIn the event this information is protected by the Federal Confidentiality of Alcohol and Drug Abuse Patient Records regulations: The Federal rules restrict any use of the information to criminally investigate or prosecute any alcohol or drug abuse patient.[facility] HospitalIn the event this information is protected by the Federal Confidentiality of Alcohol and Drug Abuse Patient Records regulations: The Federal rules restrict any use of the information to criminally investigate or prosecute any alcohol or drug abuse patient.[facility] HospitalIn the event this information is protected by the Federal Confidentiality of Alcohol and Drug Abuse Patient Records regulations: The Federal rules restrict any use of the information to criminally investigate or prosecute any alcohol or drug abuse patient.[facility] HospitalIn the event this information is protected by the Federal Confidentiality of Alcohol and Drug Abuse Patient Records regulations: The Federal rules restrict any use of the information to criminally investigate or prosecute any alcohol or drug abuse patient.[facility] HospitalIn the event this information is protected by the Federal Confidentiality of Alcohol and Drug Abuse Patient Records regulations: The Federal rules restrict any use of the information to criminally investigate or prosecute any alcohol or drug abuse patient.[facility] HospitalIn the event this information is protected by the Federal Confidentiality of Alcohol and Drug Abuse Patient Records regulations: The Federal rules restrict any use of the information to criminally investigate or prosecute any alcohol or drug abuse patient.[facility] HospitalIn the event this information is protected by the Federal Confidentiality of Alcohol and Drug Abuse Patient Records regulations: The Federal rules restrict any use of the information to criminally investigate or prosecute any alcohol or drug abuse patient.[facility] HospitalIn the event this information is protected by the Federal Confidentiality of Alcohol and Drug Abuse Patient Records regulations: The Federal rules restrict any use of the information to criminally investigate or prosecute any alcohol or drug abuse patient.[facility] HospitalIn the event this information is protected by the Federal Confidentiality of Alcohol and Drug Abuse Patient Records regulations: The Federal rules restrict any use of the information to criminally investigate or prosecute any alcohol or drug abuse patient.[facility] HospitalIn the event this information is protected by the Federal Confidentiality of Alcohol and Drug Abuse Patient Records regulations: The Federal rules restrict any use of the information to criminally investigate or prosecute any alcohol or drug abuse patient.[facility] HospitalIn the event this information is protected by the Federal Confidentiality of Alcohol and Drug Abuse Patient Records regulations: The Federal rules restrict any use of the information to criminally investigate or prosecute any alcohol or drug abuse patient.[facility] HospitalIn the event this information is protected by the Federal Confidentiality of Alcohol and Drug Abuse Patient Records regulations: The Federal rules restrict any use of the information to criminally investigate or prosecute any alcohol or drug abuse patient.[facility] HospitalIn the event this information is protected by the Federal Confidentiality of Alcohol and Drug Abuse Patient Records regulations: The Federal rules restrict any use of the information to criminally investigate or prosecute any alcohol or drug abuse patient.[facility] HospitalIn the event this information is protected by the Federal Confidentiality of Alcohol and Drug Abuse Patient Records regulations: The Federal rules restrict any use of the information to criminally investigate or prosecute any alcohol or drug abuse patient.[facility] HospitalIn the event this information is protected by the Federal Confidentiality of Alcohol and Drug Abuse Patient Records regulations: The Federal rules restrict any use of the information to criminally investigate or prosecute any alcohol or drug abuse patient.[facility] HospitalIn the event this information is protected by the Federal Confidentiality of Alcohol and Drug Abuse Patient Records regulations: The Federal rules restrict any use of the information to criminally investigate or prosecute any alcohol or drug abuse patient.[facility] HospitalIn the event this information is protected by the Federal Confidentiality of Alcohol and Drug Abuse Patient Records regulations: The Federal rules restrict any use of the information to criminally investigate or prosecute any alcohol or drug abuse patient.[facility] HospitalIn the event this information is protected by the Federal Confidentiality of Alcohol and Drug Abuse Patient Records regulations: The Federal rules restrict any use of the information to criminally investigate or prosecute any alcohol or drug abuse patient.[facility] HospitalIn the event this information is protected by the Federal Confidentiality of Alcohol and Drug Abuse Patient Records regulations: The Federal rules restrict any use of the information to criminally investigate or prosecute any alcohol or drug abuse patient.[facility] HospitalIn the event this information is protected by the Federal Confidentiality of Alcohol and Drug Abuse Patient Records regulations: The Federal rules restrict any use of the information to criminally investigate or prosecute any alcohol or drug abuse patient.[facility] HospitalIn the event this information is protected by the Federal Confidentiality of Alcohol and Drug Abuse Patient Records regulations: The Federal rules restrict any use of the information to criminally investigate or prosecute any alcohol or drug abuse patient.[facility] HospitalIn the event this information is protected by the Federal Confidentiality of Alcohol and Drug Abuse Patient Records regulations: The Federal rules restrict any use of the information to criminally investigate or prosecute any alcohol or drug abuse patient.[facility] HospitalIn the event this information is protected by the Federal Confidentiality of Alcohol and Drug Abuse Patient Records regulations: The Federal rules restrict any use of the information to criminally investigate or prosecute any alcohol or drug abuse patient.[facility] HospitalIn the event this information is protected by the Federal Confidentiality of Alcohol and Drug Abuse Patient Records regulations: The Federal rules restrict any use of the information to criminally investigate or prosecute any alcohol or drug abuse patient.[facility] HospitalIn the event this information is protected by the Federal Confidentiality of Alcohol and Drug Abuse Patient Records regulations: The Federal rules restrict any use of the information to criminally investigate or prosecute any alcohol or drug abuse patient.[facility] HospitalIn the event this information is protected by the Federal Confidentiality of Alcohol and Drug Abuse Patient Records regulations: The Federal rules restrict any use of the information to criminally investigate or prosecute any alcohol or drug abuse patient.[facility] HospitalIn the event this information is protected by the Federal Confidentiality of Alcohol and Drug Abuse Patient Records regulations: The Federal rules restrict any use of the information to criminally investigate or prosecute any alcohol or drug abuse patient.[facility] HospitalIn the event this information is protected by the Federal Confidentiality of Alcohol and Drug Abuse Patient Records regulations: The Federal rules restrict any use of the information to criminally investigate or prosecute any alcohol or drug abuse patient.[facility] HospitalIn the event this information is protected by the Federal Confidentiality of Alcohol and Drug Abuse Patient Records regulations: The Federal rules restrict any use of the information to criminally investigate or prosecute any alcohol or drug abuse patient.[facility] HospitalIn the event this information is protected by the Federal Confidentiality of Alcohol and Drug Abuse Patient Records regulations: The Federal rules restrict any use of the information to criminally investigate or prosecute any alcohol or drug abuse patient.[facility] HospitalIn the event this information is protected by the Federal Confidentiality of Alcohol and Drug Abuse Patient Records regulations: The Federal rules restrict any use of the information to criminally investigate or prosecute any alcohol or drug abuse patient.[facility] HospitalIn the event this information is protected by the Federal Confidentiality of Alcohol and Drug Abuse Patient Records regulations: The Federal rules restrict any use of the information to criminally investigate or prosecute any alcohol or drug abuse patient.[facility] HospitalIn the event this information is protected by the Federal Confidentiality of Alcohol and Drug Abuse Patient Records regulations: The Federal rules restrict any use of the information to criminally investigate or prosecute any alcohol or drug abuse patient.[facility] HospitalIn the event this information is protected by the Federal Confidentiality of Alcohol and Drug Abuse Patient Records regulations: The Federal rules restrict any use of the information to criminally investigate or prosecute any alcohol or drug abuse patient.[facility] HospitalIn the event this information is protected by the Federal Confidentiality of Alcohol and Drug Abuse Patient Records regulations: The Federal rules restrict any use of the information to criminally investigate or prosecute any alcohol or drug abuse patient.[facility] HospitalIn the event this information is protected by the Federal Confidentiality of Alcohol and Drug Abuse Patient Records regulations: The Federal rules restrict any use of the information to criminally investigate or prosecute any alcohol or drug abuse patient.[facility] HospitalIn the event this information is protected by the Federal Confidentiality of Alcohol and Drug Abuse Patient Records regulations: The Federal rules restrict any use of the information to criminally investigate or prosecute any alcohol or drug abuse patient.[facility] Reason for Visit (unrecogniz ed section and content) Reason Comments Establish Care Establish Care Reason Comments Med Change Request Reason Onset Date Comments Refill Request 11/11/2024 Reason Comments Consult Specialty Diagnoses / Procedures Referred By Contac t Referred To Contact Gerontology Diagnoses Self-catheterizes urinary bladder Balance disorder Concern about memory Anxiety and depression Assistance needed for bathing Ambulates with cane Procedures CONSULT TO GERIATRICS OFFICE/OUTPATIENT NEW HIGH MDM 60 MINUTES Rita, ALEX Monge.POSTAL INSPECTOR [address] [place] [address] Referral ID Status Reason Start Date Expiration Date V isits Requested Visits Authorized [id number] Closed PCP Requested Referral 11/05/2024 11/05/2025 1 1 Reason Onset Date Comments Refill Request 12/12/2024 Reason Onset Date Comments Refill Request 12/15/2024 Reason Comments Orders Reason Comments New Patient Urinary Retention Specialty Diagnoses / Procedures Referred By Contac t Referred To Contact Urology Diagnoses Self-catheterizes urinary bladder Unable to void Urinary problem Procedures CONSULT TO UROLOGY OFFICE/OUTPATIENT NEW HIGH MDM 60 MINUTES Rita, ALEX Monge.POSTAL INSPECTOR [address] [place] [address] Referral ID Status Reason Start Date Expiration Date V isits Requested Visits Authorized [id number] Closed PCP Requested Referral 11/05/2024 11/05/2025 1 1 Reason Comments Request Outside Medical Records Reason Onset Date Comments Refill Request 12/31/2024 Reason Onset Date Comments Refill Request 01/21/2025 Reason Onset Date Comments Refill Request 01/26/2025 Reason Onset Date Comments Refill Request 02/02/2025 Reason Comments Follow Up 01/24/25 MRI review re sults, [facility] not a good fit per patient Reason Comments Recheck Follow up Reason Comments Urinary Problem Brain fog, 1 day Reason Comments Clinical Update Reason Onset Date Comments Refill Request 02/24/2025 Reason Onset Date Comments Results 01/28/2025 Reason Comments Follow HH Reason Comments ER F/U [facility] 03/01/25 fall-lef t hip FX; 03/02/25 Left hip cephalomedullary nail fixation, 03/04/25 transferred to [facility] for rehabilitation, 03/19/[address] [facility] for continuing rehabilitation Reason Comments Patient Update Orders Reason Comments Request information from care home Reason Comments Swelling Reason Comments Patient Update Reason Onset Date Comments Refill Request 05/01/2025 Reason Comments Edema Reason Comments Orders Self catheter Reason Comments F/U 3 Month Reason Comments Anxiety Reason Comments [facility] requesting order Reason Comments Forms Reason Comments Established Patient Follow-Up 4 weel f/u Reason Comments Home Health Point of Care Results FOR RECORDS PERTAINING TO PATIENTS WHO ARE [...] BE BASED ON THE PRIMARY CLINICAL RECORDS. [facility] [employer] [facility]. provides no warranty or guarantee of the accuracy or completeness of information in this document.
[2025-06-20 09:32] LABS: AST(SGOT) 47 U/L (<=31); Alanine Aminotransfer ALT/SGPT 19 U/L (<=34); Albumin, Serum 4.3 g/dL (3.4-4.8); Alkaline Phosphatase 121 U/L (35-104); Anion Gap 15 (5-15); BUN 17 mg/dL (4-19); BUN/Creat Ratio 18.1 RATIO (10-20); Bilirubin, Direct 0.85 mg/dL (0.00-0.30); Calcium,Total 9.9 mg/dL (7.6-11.0); Carbon Dioxide 24.3 mmol/L (21.0-32.0); Chloride 99 mmol/L (98-108); Estimated Creatinine Clearance 32.34 ml/min (50-250); Globulin 3.5 g/dL (2.2-4.2); Glucose 149 mg/dL (70-99); Potassium 3.7 mmol/L (3.3-5.1)
--- NOTE | 2025-06-20 09:50 | RAD_ITS ---
PROCEDURE: ELBOW MIN 3 VIEWS 06/20/2025 REASON FOR EXAM: FALL TECHNIQUE: ELBOW MIN 3 VIEWS FINDINGS: Bones: Bones are demineralized. No demonstrated acute fracture or suspicious osseous lesion Joints: Well-preserved Soft tissues: No suspicious soft tissue swelling or joint effusion Other: RAD/Elbow min 3 Views IMPRESSION: Osteopenia, no demonstrated fracture or joint space abnormalities Reading Location: [id number]
--- NOTE | 2025-06-20 09:50 | RAD_ITS ---
PROCEDURE: KNEE 1 OR 2 VIEWS 06/20/2025 REASON FOR EXAM: Pain after fall TECHNIQUE: KNEE 1 OR 2 VIEWS COMPARISON: None FINDINGS: Bones: Bones are demineralized. There has been previous open reduction internal fixation of a patellar fracture. Hardware is intact and free of complication. The fracture has healed. Joints: Moderate tricompartmental arthrosis Effusion: No joint effusion Soft tissues: Chondrocalcinosis noted in the medial and lateral compartments Other: Peripheral calcifications in the popliteal artery RAD/Knee 1 or 2 Views IMPRESSION: Tricompartmental arthrosis with chondrocalcinosis, no demonstrated acute fractu re or suspicious osseous lesion Surgical hardware in the patella from previous ORIF free of complication Reading Location: [id number]
--- NOTE | 2025-06-20 09:50 | RAD_ITS ---
PROCEDURE: KNEE 1 OR 2 VIEWS 06/20/2025 REASON FOR EXAM: FALL TECHNIQUE: KNEE 1 OR 2 VIEWS, left COMPARISON: Left knee radiographs 03/06/2025. FINDINGS: Bones: No acute fracture. No aggressive osseous lesion. Unchanged irregularity of the left lateral femoral condyle, likely partially healed, chronic fracture deformity. Joints: Moderate degenerative changes. Effusion: No effusion. Soft tissues: Soft tissues are unremarkable. Vascular calcifications. RAD/Knee 1 or 2 Views IMPRESSION: DEGENERATIVE OSTEOARTHROSIS. NO ACUTE FINDINGS. Reading Location: [id number]
--- NOTE | 2025-06-20 09:50 | RAD_ITS ---
PROCEDURE: HIP, UNI W/ PELVIS 2-3 VIEWS 06/20/2025 REASON FOR EXAM: Pain after a fall TECHNIQUE: HIP, UNI W/ PELVIS 2-3 VIEWS COMPARISON: 03/01/2025 FINDINGS: The bones are demineralized. Since the previous study, the patient has undergone placement of surgical hardware to reduce a left femoral fracture. The fracture has not yet completely healed there still evidence of fracture lucency suggesting the likely nonunion but the hardware is intact and free of complication. Age consistent right hip and SI joint arthrosis, no acute fracture or suspicious osseous lesion. 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 There is still evidence of fracture lucency and co rtical irregularity. No hardware complication noted. 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 Reading Location: [id number]
[2025-06-20 10:12] LABS: CPK Total, Creatine Kinase 914 U/L (24-195)
[2025-06-20 11:08] LABS: Mucous, Urine 0 SEEN /hpf (<or=2+)
[2025-06-20 11:10] LABS: Color, Urine Yellow (Yellow); Glucose, Dipstick Normal (Normal); Ketone-Dipstick 5 mg/dl (Negative); Leukocyte Esterase-Dipstick 100 /ul (Negative); Nitrite-Dipstick Positive (Negative); Occult Blood-Urine 150 /ul (Negative); Protein-Dipstick 30 mg/dl (Negative); Specific Gravity, Urine 1.015 (1.002-1.030); Urine Bilirubin Dipstick Negative (Negative)
[2025-06-20 11:15] LABS: Red Blood Cells-Urine 10-25 SEEN /hpf (0-5); Squamous Epithelial Cells - UA 0-5 SEEN /hpf (5-10)
--- NOTE | 2025-06-20 14:25 | PCM.HP.STD ---
HPI - General General Date of Admission: 06/20/25 Date of Service: 06/20/25 Chief Complaint: Knee pain after fall HPI Narrative HARRY ABRAMS, is a 84-year-old female history of hypothyroidism, dementia, urinary self catheterization, hypertension, depression, on Eliquis who presented to [facility] ED 06/20/2025 after a fall. Reportedly had mechanical fall and tripped over her walker and was found by the home health aide, unclear how long she was down. Was complaining of left hip pain and bilateral knee pain. Family did note earlier in the year she had hip replacement and had been progressing well until now. In the ED temp 98.1, heart rate 87 and blood pressure initially 95/81 but improved to 153/28, respiratory rate 16 and pulse ox 97% on room air. CBC notable for white blood cell count of 28.5 with normal hemoglobin and platelet count, BMP fairly unremarkable aside from a glucose of 149. Liver profile did have a T. bili of 2.15, direct bili 0.58, AST of 47 and ALP of 121. CPK of 914, unclear how long patient was down. She was mark scanned with no acute process in the brain and cervical spine, hip and pelvis x-ray showed nonunion of previously noted intertrochanteric fracture despite presence of surgical hardware. Ortho contacted on-call and no acute management recommended. UA with occult blood, nitrate, leuk esterase and bacteria. Patient given IV antibiotics, urine culture sent, and hospitalist contacted for admission. Pt evaluated at bedside. She reports she was in the bathroom earlier and got up and was walking with her walker but part of the front is worn out causing her to trip, she fell directly on her knees and does report some soreness in bilateral knees but denies any current pain in her hips or any other pain. She is unsure of any urinary symptoms as she chronically self caths. Reports that at some point they are going to do a suprapubic catheter but this has not been scheduled yet. No fevers or other acute complaints [facility] Medical History (Updated 06/20/25 @ 14:[address] Cindy Molina MD) Anxiety Back pain Closed intertrochanteric fracture of left hip Dementia Fall Hypertension Hypothyroidism Self-catheterizes urinary bladder Home Medications ?Medication ?Instructions ?Recorded ?Last Taken ?Type ascorbic acid (vitamin C) 500 mg 500 mg PO DAILY supplement 03/01/25 06/19/25 History tablet (C-500) donepezil 10 mg tablet 10 mg PO DAILY dementia 03/01/25 06/19/25 History escitalopram oxalate 20 mg tablet 20 mg PO DAILY anxiety 03/01/25 06/19/25 History levothyroxine 50 mcg tablet 50 mcg PO DAILY thyroid 03/01/25 06/19/25 History trazodone 50 mg tablet 50 mg PO QHS anxiety 03/01/25 06/19/25 History acetaminophen 500 mg tablet 1,000 mg (2 x 500 mg) PO Q8 #0 tabs 03/16/25 Unknown Rx apixaban 5 mg tablet (Eliquis) 5 mg PO BID #0 tabs 03/16/25 06/19/25 Rx sennosides 8.6 mg-docusate sodium 1 tab PO BID #0 tabs 03/16/25 Unknown Rx 50 mg tablet (Stimulant Laxative Plus) buspirone 5 mg tablet 5 mg PO BID 06/20/25 06/19/25 History cholecalciferol (vitamin D3) 125 125 mcg PO DAILY 06/20/25 06/19/25 History mcg (5,000 unit) capsule clonazepam 0.5 mg tablet 0.5 mg PO Q8H PRN anxiety 06/20/25 06/19/25 History Allergy/AdvReac Type Severity Reaction Status Date / Time No Known Allergies Allergy Verified 06/20/25 08:35 Family History Other Hypertension Surgical History H/O: hysterectomy Status post right knee replacement Social History household members: none housing: apartment current occupational status: retired other: Daughter lives a few doors down helps her on a regular basis Smoking Status: Never smoker alcohol intake: never substance use type: does not use ROS ROS Narrative General: Denies fever/chills HENT: Denies headache, denies stuffy nose, denies sore throat EYES: Denies changes in vision Resp: Denies cough, denies shortness of breath Cardiac: Denies chest pain GI: Denies abdominal pain, denies changes in bowel, denies nausea/vomiting : Self catheterizes Extremity: Denies swelling MSK: Denies weakness, has some pain in her knees Neuro: Denies any numbness/tingling Heme: Denies any bleeding or bruising Skin: Has some redness in her knees Psychiatric: No complaints voiced Vital Signs Vital Signs Vital Signs: 06/20/25 08:29 06/20/25 09:02 06/20/25 10:28 Temperature 98.1 F Temperature Source Oral Pulse Rate 87 71 Respiratory Rate 16 18 Respiratory Effort Normal Non-Labored Respiratory Depth Normal Respiratory Pattern Normal Blood Pressure 95/81 H 134/106 H Blood Pressure Mean 85 115 Pulse Ox 97 95 Oxygen Delivery Method Room Air Room Air Room Air 06/20/25 12:00 06/20/25 12:03 06/20/25 12:15 Temperature Temperature Source Pulse Rate 75 76 77 Respiratory Rate 26 H 25 H 18 Respiratory Effort Respiratory Depth Respiratory Pattern Blood Pressure 153/128 H Blood Pressure Mean 136 Pulse Ox 98 99 100 Oxygen Delivery Method 06/20/25 12:30 06/20/25 12:45 06/20/25 13:00 Temperature Temperature Source Pulse Rate 75 88 76 Respiratory Rate 28 H 27 H 28 H Respiratory Effort Respiratory Depth Respiratory Pattern Blood Pressure Blood Pressure Mean Pulse Ox 100 97 99 Oxygen Delivery Method 06/20/25 13:15 06/20/25 13:30 06/20/25 13:45 Temperature Temperature Source Pulse Rate 74 75 68 Respiratory Rate 23 H 28 H 26 H Respiratory Effort Respiratory Depth Respiratory Pattern Blood Pressure Blood Pressure Mean Pulse Ox 98 97 97 Oxygen Delivery Method 06/20/25 14:00 06/20/25 14:15 06/20/25 14:18 Temperature 98.1 F Temperature Source Pulse Rate 64 67 75 Respiratory Rate 20 H 25 H 26 H Respiratory Effort Respiratory Depth Respiratory Pattern Blood Pressure 153/128 H Blood Pressure Mean 136 Pulse Ox 98 97 98 Oxygen Delivery Method Weight Weight: 54.522 kg Body Mass Index (BMI) 23.4 Physical Exam Narrative General: Alert, knows she is at [facility], initially thought year was 2028 but corrected to 2024, knew it was June, no apparent distress HEENT: Atraumatic, normocephalic Eyes: Anicteric, normal conjunctiva, extraocular movements grossly intact Neck: Supple Respiratory: Clear to auscultation bilaterally, normal respiratory effort Cardiovascular: Regular rate and rhythm GI: Soft, nontender, nondistended Extremities: No edema Musculoskeletal: Moving all extremities Neuro: No overt focal neurological deficits Skin: Does have some erythema over both knees and left knee with superficial abrasion Psych: Cooperative Results Lab / Micro Data 06/20/25 08:48 06/20/25 08:48 Labs: Laboratory Results - last 24 hr 06/20/25 08:48: WBC 28.5 H, RBC 4.77, Hgb 14.3, Hct 41.5, MCV 87.0, MCH 30.0, MCHC 34.5, RDW Std Deviation 42.5, RDW Coeff of Leslie 13.5, Plt Count 252, MPV 10.6, Immature Gran % (Auto) 1.400 H, Neut % (Auto) 89.2 H, Lymph % (Auto) 3.5 L, Schuyler % (Auto) 5.6, Eos % (Auto) 0.0, Baso % (Auto) 0.3, Absolute Neuts (auto) 25.4 H, Absolute Lymphs (auto) 0.99, Nucleated RBC % 0, Differential Comment , PT 19.6 H, INR 1.6, APTT 35.6, Sodium 138, Potassium 3.7, Chloride 99, Carbon Dioxide 24.3, Anion Gap 15, BUN 17, Creatinine 0.93, Estim Creat Clear Calc 32.34 L, Est GFR (MDRD) Non-Af 60, BUN/Creatinine Ratio 18.1, Glucose 149 H, Calcium 9.9, Total Bilirubin 2.15 H, Direct Bilirubin 0.85 H, AST 47 H, ALT 19, Alkaline Phosphatase 121 H, Total Creatine Kinase 914 H, Total Protein 7.7, Albumin 4.3, Globulin 3.5 06/20/25 11:01: Urine Color Yellow, Urine Clarity Clear, Urine pH 5.0, Ur Specific Altus 1.015, Urine Protein 30 H, Urine Glucose (UA) Normal, Urine Ketones 5 H, Urine Occult Blood 150 H, Urine Nitrite Positive H, Urine Bilirubin Negative, Urine Urobilinogen Normal, Ur Leukocyte Esterase 100 H, Urine RBC 10-25 SEEN, Urine WBC 0 SEEN, Ur Squamous Epith Cells 0-5 SEEN, Urine Bacteria 1+, Urine Mucus 0 SEEN Imaging Radiology Impression Brain CT 06/20/25 08:47 IMPRESSION: No acute intracranial findings. Chronic findings as described. Reading Location: [facility] Cervical Spine CT 06/20/25 08:48 IMPRESSION: NO ACUTE CERVICAL FRACTURE. DEGENERATIVE CHANGES. Reading Location: [facility] Chest/Abdomen/Pelvis CT 06/20/25 08:48 IMPRESSION: CT chest: 1. No acute thoracic finding. 2. Persistent findings of pulmonary fibrosis, most compatible with IPF. Thoracic lymphadenopathy can be seen with IPF, however correlation with prior examination is recommended if available. CT abdomen/pelvis: 1. No acute abdominopelvic finding. 2. Partially calcified, enhancing right ovarian nodule, which is indeterminate in etiology and may represent benign or malignant pathology. Correlation with nonemergent, routine pelvic ultrasound recommended for further evaluation. 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 There is still evidence of fracture lucency and cortical irregularity. No hardware complication noted. 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 Reading Location: [id number] Knee X-Ray 06/20/25 09:50 IMPRESSION: Tricompartmental arthrosis with chondrocalcinosis, no demonstrated acute fracture or suspicious osseous lesion Surgical hardware in the patella from previous ORIF free of complication Reading Location: [facility] Knee X-Ray 06/20/25 09:50 IMPRESSION: DEGENERATIVE OSTEOARTHROSIS. NO ACUTE FINDINGS. Reading Location: [facility] Assessment & Plan Assessment/Plan (1) Fall: (2) Generalized weakness: (3) Abnormal finding on urinalysis: (4) Self-catheterizes urinary bladder: PLAN: Plan #Mechanical fall -Pt reports she was in the bathroom and got up and tripped while using her walker - Does have pain in bilateral knees however patient was scanned no acute process - Supportive care - PT/OT - Case management consult # Abnormal UA in the setting of self-catheterization - UA with nitrates and leuk esterase and bacteria, this is suggestive of UTI and given her elevated white blood cell count feel it is reasonable to treat empirically while awaiting urine culture - Continue Rocephin - Will have Lizarraga placed while inpatient #right ovarian nodule -CT w/ Partially calcified, enhancing right ovarian nodule, which is indeterminate in etiology and may represent benign or malignant pathology -Correlation with nonemergent, routine pelvic ultrasound recommended for further evaluation #Hypothyroidism -Continue Synthroid #Depression/anxiety -Continue home medications #Dementia -Supportive care -Continue home medications #DVT ppx: Patient chronically on Eliquis Cindy Molina MD Charges/Coding Visit Charges Inpatient E&M: 36711 Init Hosp L2
--- OUTSIDE RECORDS SUMMARY | 2025-06-20 14:47 | XMS RPT_ITS | CCD ---
Author Organization [facility] Care Team Providers Care Customer Support Assistant Name Role Phone Ludin Suarez Attending Unavailable Ludin Suarez Attending Unavailable Ludin Suarez Attending Unavailable Ludin Suarez Referring Unavailable Jeremy DELACRUZ, Dillan Primary Care Provider DILLAN SANTIAGO Referring Unavailable DILLAN SANTIAGO Primary Care Unavailable Older FOOD SERVICE CASHIER.DOUBLE SPINDLE SHAPER OPERATOR, Mariposa Unavailable Dr. Vadim Florence DO Attending [...] Chelsea DELACRUZ, Dr. Allison Nicholson Other Provider [phone] Srinath DELACRUZ, Dr. Garfield Hernandez Admit Provider [phone] Srinath DELACRUZ, Dr. Garfield Hernandez Attending Provider Srinath DELACRUZ, Dr. Garfield Hernandez Referring Provider Sean DELACRUZ, Dr. Fierro Attending Provider [phone] Adele Gusman MD Attending Provider Unavaila moraima Morgan PETROLOGY TEACHER-C, Daya Attending Provider Adele Gusman MD Referring Provider Unavaila moraima Darby MD, Dr. Lane Emergency Provider [phone] Dr. Dillan Santiago MD Primary Care Provider Naseem DELACRUZ, Dr. Angulo Attending Provider Wilner DELACRUZ, Dr. Lane Attending Provider Eddie PETROLOGY TEACHER-C, Daya Attending Provider OLDER, MARIPOSA Referring Unavailable [...] Unavailable Ganta, Dillan Primary Care Unavailable [place] PETROLOGY TEACHER, Daya Attending Unavailable Ganta, Dillan Primary Care Unavailable [place] PETROLOGY TEACHER, Daya Attending Unavailable Ethan, Roro Attending Unavailable Ganta, Dillan Primary Care Unavailable Domingo Darby Attending Unavailable [facility] Unavailable Vadim Florence Attending Unavailable [facility] Unavailable Adele Contreras Attending UnavailDaya Richards Attending Unavailable [facility] Unavailable [facility] Unavailable Allison Tran Attending Unavailable Roro Long Admitting Unavailable [facility] [employer] Unavailable [employer]oro [employer] Unavailable Garfield Yo Chi Attending Unavailable Srinath, Garfield Chi Admitting Unavailable [facility] Unavailable Medications Current Medications Medication Drug [...] Discontinued docusate sodium 50 mg / sennosides, detention 8.6 mg oral tablet (5 sources) Start: [...] 2025 12:00am March 16, 2025 8:17pm prophylactic [place] Red (1 source) Start: 10-29-2019 End: 01-17-2024 [place] Red Discontinued October 29, 2019 12:00am January [...] source) Long-term current use of anticoagulant; Translations: [terminal makeup operator (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 - You already have an appointment scheduled with podiatry in June. At that visit, they will assess your nails and provide appropriate treatment. - I documented the findings in your chart to ensure the size cutter is aware of the condition and can [...] a month ago, which was treated at [facility]. Michaela expresses reluctance to continue self-catheterization due to the risk of introducing infections and is considering a suprapubic catheter as an alternative. Michaela has not yet undergone an echocardiogram that was previously scheduled. She expresses a desire to reschedule the appointment. Michaela is also experiencing issues with thickened toenails, which are causing discomfort when wearing shoes. She has an appointment with a size cutter next month for evaluation and treatment. Michaela [...] Michaela's daughter, who currently holds power of seasonal package handler, is trying to prevent this. Michaela expresses a desire to maintain her independence and make her own decisions. Social History Tobacco Use Smoking status: Ne (more content not included)... Normal [facility] MICHAELA BRANDT ([id number]) 1940 F Date Time Provider Department 05/20/25 DILLAN SANTIAGO INTWS During your visit today, we recorded the following information about you: Jagruti Veliz 05/20/2025 10:53 AM Signed Patient's daughter dropped off forms that need filled out and faxed to [facility] Enrique, TOBIAS Cueto, att [phone]. Forms given to nurse. Please assist. Mike Guo MA 05/20/2025 5:03 PM Signed Forms given to PCP for review/signature. EVON Rouse Brittany L, MA 05/26/2025 11:29 AM Signed Forms completed and faxed back to # provided: [phone]. Mike Guo MA Allergies As of Date: [...] Status:Closed by MIKE GUO on 05/26/25 Normal [facility] Urine Cultureon 05-19-2025 URC Escherichia coli [place] Count 80,000-100,000 Escherichia coli: REACTION Ampicillin Islt [...] TMP SMX Islt CARLTON <=20 S Normal [facility] Comment on above: Performed By: #### M 100.2200 ####[facility] [address] [place], [place], [id number] Absolute lymphocyte countOrd ered By: Domingo Darby on 05-17-2025 Lymphocytes Auto (Unsp spec) [#/Vol] 1.24 10*3/uL 0.83-4.51 [facility] Absolute neutrophil countOrd ered By: Domingo Darby on 05-17-2025 Neutrophils (Bld) [#/Vol] 6.9 10*3/uL 2.0-7.7 [facility] Anion gap in Serum or Plasma Ordered By: Domingo Darby on 05-17-2025 Anion gap [Moles/Vol] 12 mmol/L 5-15 [facility] Automated lymphocyte count a s percentage of total leukocytesOrdered By: Domingo Darby on 05-17-2025 Lymphocytes/100 WBC Auto (Unsp spec) 14.1 % Low 19-41 [facility] BUN/creatinine ratioOrdered By: Domingo Darby on 05-17-2025 Urea nitrogen/Creatinine [Mass ratio] 15.6 mg/mg 10-20 [facility] Basic Metabolic Profile (BMP )on 05-17-2025 BUN/CRE 15.6 RATIO Normal 10-20 [facility] Comment on above: Performed By: #### L 100.0100, L500.2500 ####[facility] [address] [place], [address] Calcium [Mass/Vol] 9.0 mg/dL Normal 7.6-11.0 [facility] Comment on above: Performed By: #### L 100.0100, L500.2500 ####[facility] [address] [place], [address] Chloride [Moles/Vol] 104 mmol/L Normal 98-108 [facility] Comment on above: Performed By: #### L 100.0100, L500.2500 ####[facility] [address] [place], [address] CO2 [Moles/Vol] 26.5 mmol/L Normal 21.0-32.0 [facility] Comment on above: Performed By: #### L 100.0100, L500.2500 ####[facility] [address] [place], [address] Creatinine [Mass/Vol] 0.96 mg/dL Normal 0.70-1.20 [facility] Comment on above: Performed By: #### L 100.0100, L500.2500 ####[facility] [address] [place], [address] GAP 12 Normal 5-15 [facility] Comment on above: Performed By: #### L 100.0100, L500.2500 ####[facility] [address] [place], [address] GFR/1.73 sq M.predicted among non-blacks MDRD (S/P/Bld) [Vol rate/Area] 58 mL/min/{1.73_m2} Low >60 [facility] Comment on above: Result Comment: mL/m in/1.73m2 CKD-EPI Creatinine Equation (2020) Performed By: #### L 100.0100, L500.2500 ####[facility] [address] [place], [address] Glucose [Mass/Vol] 97 mg/dL Normal 70-99 [facility] Comment on above: Performed By: #### L 100.0100, L500.2500 ####[facility] [address] [place], [address] Potassium [Moles/Vol] 3.9 mmol/L Normal 3.3-5.1 [facility] Comment on above: Result Comment: Hemo lysis present, Results??could be affected. ?? Performed By: #### L 100.0100, L500.2500 ####[facility] [address] [place], [address] Sodium [Moles/Vol] 142 mmol/L Normal 133-145 [facility] Comment on above: Performed By: #### L 100.0100, L500.2500 ####[facility] [address] [place], [address] Urea nitrogen [Mass/Vol] 15 mg/dL Normal 4-19 [facility] Comment on above: Performed By: #### L 100.0100, L500.2500 ####[facility] [address] [place], [address] Basophil percentageOrdered B y: Domingo Darby on 05-17-2025 Basophils/100 WBC (Bld) 0.6 % 0-1 [facility] Bilirubin Test strip Ql (U)O rdered By: Domingo Darby on 05-17-2025 Bilirubin Ql (U) Negative Negative [facility] CBC W/Diff, Automatedon 04-20 Absolute Lymph 1.24 X10 3/uL Normal 0.83-4.51 [facility] Comment on above: Performed By: #### L 100.0100, L500.2500 ####[facility] [address] [place], [address] Absolute Neut 6.9 X10 3/uL Normal 2.0-7.7 [facility] Comment on above: Performed By: #### L 100.0100, L500.2500 ####[facility] [address] [place], [address] Basophils/100 WBC (Bld) 0.6 % Normal 0-1 [facility] Comment on above: Performed By: #### L 100.0100, L500.2500 ####[facility] [address] [place], [address] Eosinophils/100 WBC (Bld) 0.9 % Normal 0-5 [facility] Comment on above: Performed By: #### L 100.0100, L500.2500 ####[facility] [address] [place], [address] Erythrocyte distribution width (RBC) [Ratio] 13.1 % Normal 11.6-14.6 [facility] Comment on above: Performed By: #### L 100.0100, L500.2500 ####[facility] [address] [place], [address] Hematocrit (Bld) [Volume fraction] 36.5 % Low 37-47 [facility] Comment on above: Performed By: #### L 100.0100, L500.2500 ####[facility] [address] [place], [address] Hemoglobin (Bld) [Mass/Vol] 12.5 g/dL Normal 12.0-15.0 [facility] Comment on above: Performed By: #### L 100.0100, L500.2500 ####[facility] [address] [place], [address] IG% 0.500 Normal 0.0-0.9 [facility] Comment on above: Result Comment: IG% - Immature Granulocytes (promyelocytes, myelocytes and metamyelocytes) > 1% indicates that a LEFT SHIFT is Present. Performed By: #### L 100.0100, L500.2500 ####[facility] [address] [place], [address] Lymphocytes/100 WBC (Bld) 14.1 % Low 19-41 [facility] Comment on above: Performed By: #### L 100.0100, L500.2500 ####[facility] [address] [place], [address] MCH (RBC) [Entitic mass] 30.0 pg Normal 27.0-32.0 [facility] Comment on above: Performed By: #### L 100.0100, L500.2500 ####[facility] [address] [place], [address] MCHC (RBC) [Mass/Vol] 34.2 g/dL Normal 32-36 [facility] Comment on above: Performed By: #### L 100.0100, L500.2500 ####[facility] [address] [place], [address] MCV (RBC) [Entitic vol] 87.5 fL Normal 81-99 [facility] Comment on above: Performed By: #### L 100.0100, L500.2500 ####[facility] [address] [place], [address] Monocytes/100 WBC (Bld) 5.1 % Normal 0-10 [facility] Comment on above: Performed By: #### L 100.0100, L500.2500 ####[facility] [address] [place], [address] Neutrophils/100 WBC (Bld) 78.8 % High 47-70 [facility] Comment on above: Performed By: #### L 100.0100, L500.2500 ####[facility] [address] [place], [address] Nucleated RBC (Bld) [#/Vol] 0 10*3/uL Normal 0-5 [facility] Comment on above: Performed By: #### L 100.0100, L500.2500 ####[facility] [address] [place], [address] Platelet mean volume (Bld) [Entitic vol] 10.4 fL Normal 6.2-12.0 [facility] Comment on above: Performed By: #### L 100.0100, L500.2500 ####[facility] [address] [place], [address] Platelets (Bld) [#/Vol] 181 10*3/uL Normal 150-450 [facility] Comment on above: Performed By: #### L 100.0100, L500.2500 ####[facility] [address] [place], [address] RBC (Bld) [#/Vol] 4.17 10*6/uL Low 4.2-5.4 [facility] Comment on above: Performed By: #### L 100.0100, L500.2500 ####[facility] [address] [place], [address] RDW SD 41.9 fl Normal 35.1-43.9 [facility] Comment on above: Performed By: #### L 100.0100, L500.2500 ####[facility] [address] [place], [address] WBC (Bld) [#/Vol] 8.8 10*3/uL Normal 4.4-11.0 [facility] Comment on above: Performed By: #### L 100.0100, L500.2500 ####[facility] [address] [place], [address] Carbon dioxide, total [Moles /volume] in Central venous bloodOrdered By: Domingo Darby on 05-17-2025 CO2 [Moles/Vol] 26.5 mmol/L 21.0-32.0 [facility] Chloride assayOrdered By: Kodak Darby on 05-17-2025 Chloride [Moles/Vol] 104 mmol/L 98-108 [facility] Emergency Department Summary on 05-17-2025 Emergency Department Summary [facility] Medical Records Department [address] [place] [address] Emergency Department Summary 05/17/25 MR#: [id number] Acct: [id number] Name: MICHAELA BRANDT Rep #: [id number] : 1940 84 From: Domingo Darby MD [...] her occupational and physical therapy and some halfway. They also have cameras in and keep [...] Following commands (more content not included)... Normal [facility] Eosinophil percentageOrdered By: Domingo Darby on 05-17-2025 Eosinophils/100 WBC (Bld) 0.9 % 0-5 [facility] Erythrocyte distribution wid th ratioOrdered By: Domingo Darby on 05-17-2025 Erythrocyte distribution width (RBC) [Ratio] 13.1 % 11.6-14.6 [facility] Erythrocyte distribution wid th standard deviationOrdered By: Domingo Darby on 05-17-2025 Erythrocyte distribution width (RBC) [Ratio] 41.9 fl 35.1-43.9 [facility] Glomerular filtration rate ( GFR) estimation/1.73 sq m using serum, plasma, or whole bOrdered By: Domingo Darby on 05-17-2025 GFR/1.73 sq M.predicted among non-blacks MDRD (S/P/Bld) [Vol rate/Area] 58 mL/min/{1.73_m2} Low >60 [facility] Comment on above: mL/min/1.73m2 CKD-EP I Creatinine Equation (2020) Hematocrit Auto (Bld) [Volum e fraction]Ordered By: Domingo Darby on 05-17-2025 Hematocrit (Bld) [Volume fraction] 36.5 % Low 37-47 [facility] Hemoglobin measurementOrdere d By: Domingo Darby on 05-17-2025 Hemoglobin (Bld) [Mass/Vol] 12.5 g/dL 12.0-15.0 [facility] Immature granulocytes/100 WB C Auto (Bld)Ordered By: Domingo Darby on 05-17-2025 Immature granulocytes/100 WBC (Bld) 0.500 % 0.0-0.9 [facility] Comment on above: IG% - Immature Granu locytes (promyelocytes, myelocytes and metamyelocytes) > 1% indicates that a LEFT SHIFT is Present. Ketones Test strip Ql (U)Ord ered By: Domingo Darby on 05-17-2025 Ketones Ql (U) Negative Negative [facility] MCV (mean corpuscular volume ) determinationOrdered By: Domingo Darby on 05-17-2025 MCV (RBC) [Entitic vol] 87.5 fL 81-99 [facility] Mean corpuscular hemoglobin (MCH) determinationOrdered By: Domingo Darby on 05-17-2025 MCH (RBC) [Entitic mass] 30.0 pg 27.0-32.0 [facility] Mean corpuscular hemoglobin concentration (MCHC) determinationOrdered By: Domingo Darby on 05-17-2025 MCHC (RBC) [Mass/Vol] 34.2 g/dL 32-36 [facility] Mean platelet volume determi nationOrdered By: Domingo Darby on 05-17-2025 Platelet mean volume (Bld) [Entitic vol] 10.4 fL 6.2-12.0 [facility] Microscopic analysis of urin e for red blood cells (RBC)Ordered By: Domingo Darby on 05-17-2025 Microscopic analysis of urine for red blood cells (RBC) 0-5 SEEN /hpf 0-5 [facility] Monocyte percentageOrdered B y: Domingo Darby on 05-17-2025 Monocytes/100 WBC (Bld) 5.1 % 0-10 [facility] Mucus LM Ql (Urine sed)Order ed By: Domingo Darby on 05-17-2025 Mucus Ql (Urine sed) 0 SEEN /hpf [facility] Neutrophil percentageOrdered By: Domingo Darby on 05-17-2025 Neutrophils/100 WBC (Bld) 78.8 % High 47-70 [facility] Nitrite Test strip Ql (U)Ord ered By: Domingo Darby on 05-17-2025 Nitrite Ql (U) Positive High Negative [facility] Nucleated red blood cell per centageOrdered By: Domingo Darby on 05-17-2025 Nucleated RBC/100 WBC (Bld) [Ratio] 0 % 0-5 [facility] Platelet countOrdered By: Kodak Darby on 05-17-2025 Platelets (Bld) [#/Vol] 181 10*3/uL 150-450 [facility] Potassium measurement (mass/ volume)Ordered By: Domingo Darby on 05-17-2025 Potassium (Unsp spec) [Mass/Vol] 3.9 mmol/L 3.3-5.1 [facility] Comment on above: Hemolysis present, R esults could be affected. Protein Test strip Ql (U)Ord ered By: Domingo Darby on 05-17-2025 Protein Ql (U) 30 mg/dl High Negative [facility] RBC Auto (Bld) [#/Vol]Ordere d By: Domingo Darby on 05-17-2025 RBC (Bld) [#/Vol] 4.17 10*6/uL Low 4.2-5.4 [facility] Serum creatinine measurement (mass/volume)Ordered By: Domingo Darby on 05-17-2025 Creatinine [Mass/Vol] 0.96 mg/dL 0.70-1.20 [facility] Serum glucose measurement (m ass/volume)Ordered By: Domingo Darby on 05-17-2025 Glucose [Mass/Vol] 97 mg/dL 70-99 [facility] Serum or plasma calcium thomas urement (mass/volume)Ordered By: Domingo Darby on 05-17-2025 Calcium [Mass/Vol] 9.0 mg/dL 7.6-11.0 [facility] Serum or plasma urea nitroge n measurement (mass/volume)Ordered By: Domingo Darby on 05-17-2025 Urea nitrogen [Mass/Vol] 15 mg/dL 4-19 [facility] Sodium levelOrdered By: Domingo Darby on 05-17-2025 Sodium [Moles/Vol] 142 mmol/L 133-145 [facility] Squamous epithelial cells de tection in urine sediment by light microscopyOrdered By: Domingo Darby on 05-17-2025 Epithelial cells.squamous LM Ql (Urine sed) 0-5 SEEN /hpf 5-10 [facility] Urinalysis, Completeon 05-17 EPI,SQUAMOUS 0-5 SEEN Normal 5-10 [facility] Comment on above: Order Comment: CLEAN CATCH Performed By: #### L 400.0001 ####[facility] [address] [place], [address] RBC 0-5 SEEN Normal 0-5 [facility] Comment on above: Order Comment: CLEAN CATCH Performed By: #### L 400.0001 ####[facility] [address] [place], [address] WBC 50-100 SEEN Normal 0-5 [facility] Comment on above: Order Comment: CLEAN CATCH Performed By: #### L 400.0001 ####[facility] [address] [place], [address] BACTERIA 0 SEEN Normal None Seen [facility] Comment on above: Order Comment: CLEAN CATCH Performed By: #### L 400.0001 ####[facility] [address] [place], [address] Mucus Ql (Urine sed) 0 SEEN Normal [facility] Comment on above: Order Comment: CLEAN CATCH Performed By: #### L 400.0001 ####[facility] [address] [place], [address] Urine clarityOrdered By: Rey Darby on 05-17-2025 Clarity (U) Clear Clear [facility] Urine color determinationOrd ered By: Domingo Darby on 05-17-2025 Color (U) Yellow Yellow [facility] Urine cultureOrdered By: Rey Darby on 05-17-2025 Bacteria identified Cx Nom (U) Escherichia coli Abnormal [facility] Urine glucose detectionOrder ed By: Domingo Darby on 05-17-2025 Glucose Ql (U) Normal mg/dl Normal [facility] Urine leukocyte esterase det ection by dipstickOrdered By: Domingo Darby on 05-17-2025 Leukocyte esterase Test strip Ql (U) 100 /ul High Negative [facility] Urine pHOrdered By: Domingo nicholas on 05-17-2025 pH (U) 6.0 [pH] 5.0 - 8.0 [facility] Urine sediment bacteria coun t by microscopy (number/high power field)Ordered By: Domingo Darby on 05-17-2025 Bacteria LM.HPF (Urine sed) [#/Area] 0 /[HPF] None Seen [facility] Urine specific gravity measu rementOrdered By: Domingo Darby on 05-17-2025 Specific gravity (U) [Rel density] 1.020 1.002-1.030 [facility] Urine urobilinogen measureme ntOrdered By: Domingo Darby on 05-17-2025 Urobilinogen Ql (U) Normal mg/dl Normal [facility] White blood cell (WBC) count Ordered By: Domingo Darby on 05-17-2025 WBC (Bld) [#/Vol] 8.8 10*3/uL 4.4-11.0 [facility] White blood cell countOrdere d By: Domingo Darby on 05-17-2025 White blood cell count 50-100 SEEN /hpf 0-5 [facility] CNPNon 05-07-2025 CNPN Telephone (INTMWS) MICHAELA BRANDT ([id number]) 1940 F Date Time Provider Department 05/07/25 DILLAN SANTIAGO INTMWS During your visit today, we recorded the following information about you: Michaelle Tai, RN 05/07/2025 11:16 AM Signed [facility] reports pt has fine crackles in the bases of her lungs again. Reports patient denies Shortness of Breath, and the swelling has decreased. No fever. Otherwise, besides pt's anxiety she feels great. Asking if pcp wants to order a CXR? If pcp wants to order a CXR please fax order to Jose M Zheng at fax # [phone] Please advise and phone Ivis with reply: [phone] Dillan Santiago MD 05/11/2025 5:08 PM Signed [...] DELMY (dementia of Alzheimer type) ([facility]) [G30.9, *04/17/2025 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] 04/17/2025 Closed fracture of left hip ([facility]) [S72.002A] 04/17/2025 Balance disorder [R26.89] 04/17/2025 Weakness of both lower extremities [R29.898] 04/17/2025 Encounter Status:Closed by Michaelle TAI on 05/12/25 [facility] CNOVon 05-06-2025 CNOV Office Visit (GERIWR ) MICHAELA BRANDT ([id number]) 1940 F Date Time Provider Department 05/06/25 [...] is currently receiving home care services, including halfway, physical therapy, and occupational therapy. She has aides assisting her from [phone] and [phone] daily. Due to financial constraints, the family [...] mg tablet Catheter (SELF-CATHETER, FEMALE) 14 Fr [facility] Health Maintenance DTaP,Tdap,Td Vaccine(1 - Tdap) Bone [...] (R33.9) Self-catheterize (more content not included)... Normal [facility] Markus 05-06-2025 [facility] MICHAELA BRANDT ([id number]) 1940 F Date Time Provider Department 05/06/25 [...] DELMY (dementia of Alzheimer type) ([facility]) [G30.9, *04/17/2025 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] 04/17/2025 Closed fracture of left hip ([facility]) [S72.002A] 04/17/2025 Balance disorder [R26.89] 04/17/2025 Weakness of both lower extremities [R29.898] 04/17/2025 Prescriptions ordered this encounter Disp Refills Start End BUSPIRONE 5 MG TABLET 60 t* 3 05/06/2025 Route: PO Sig: Take 1 tablet by mouth two times a day. Encounter Status:Closed by MIKE GUO on 05/07/25 Normal [facility] Comprehensive metabolic 2000 panelon 05-06-2025 Albumin [Mass/Vol] 3.8 g/dL Low 3.9-4.9 [facility] Comment on above: Order Comment: Speci men Type: BLOOD SPECIMENOrdering Facility: [facility] Address: [address] [place] [address] [place], [place] [address] Performed By: #### 2 4323-8, 79182-6 ####[facility] LABCLIA [id number] [facility] [address] [place] [address] [place] ALP [Catalytic activity/Vol] 100 U/L Normal 34-123 [facility] Comment on above: Order Comment: Speci men Type: BLOOD SPECIMENOrdering Facility: [facility] Address: [address] [place] [address] Performed By: #### 2 4323-8, 80809-5 ####[facility] LABCLIA [id number] [facility] [address] [place] [address] [place] ALT [Catalytic activity/Vol] 9 U/L Normal 7-38 [facility] Comment on above: Order Comment: Speci men Type: BLOOD SPECIMENOrdering Facility: [facility] Address: [address] [place] [address] Performed By: #### 2 4323-8, 95352-2 ####[facility] LABCLIA [id number] [facility] [address] [place] [address] [place] Anion gap [Moles/Vol] 11 mmol/L Normal 8-[address] [facility] Comment on above: Order Comment: Speci men Type: BLOOD SPECIMENOrdering Facility: [facility] Address: [address] [place] [address] Performed By: #### 2 4323-8, 35658-3 ####[facility] LABCLIA [id number] [facility] [address] [place] [address] [place] AST [Catalytic activity/Vol] 17 U/L Normal 13-35 [facility] Comment on above: Order Comment: Speci men Type: BLOOD SPECIMENOrdering Facility: [facility] Address: [address] [place], [place] [address] Performed By: #### 2 4323-8, 95973-9 ####[facility] LABCLIA [id number] [address] [place] [address] [place] Bilirubin [Mass/Vol] 0.7 mg/dL Normal 0.2-1.3 [facility] Comment on above: Order Comment: Speci men Type: BLOOD SPECIMENOrdering Facility: [facility] Address: [address] [place] [address] Performed By: #### 2 4323-8, 25216-1 ####[facility] LABCLIA [id number] [place] [address] [place] Calcium [Mass/Vol] 9.2 mg/dL Normal 8.5-10.2 [facility] Comment on above: Order Comment: Speci men Type: BLOOD SPECIMENOrdering Facility: [facility] Address: [address] [place] [address] Performed By: #### 2 4323-8, 33489-8 ####[facility] LABCLIA [id number] [place] [address] [place] Chloride [Moles/Vol] 104 mmol/L Normal 98-107 [facility] Comment on above: Order Comment: Speci men Type: BLOOD SPECIMENOrdering Facility: [facility] Address: [address] [place] [address] Performed By: #### 2 4323-8, 75332-3 ####[facility] LABCLIA [id number] [place] [id number] [place] CO2 [Moles/Vol] 24 mmol/L Normal 22-30 [facility] Comment on above: Order Comment: Speci men Type: BLOOD SPECIMENOrdering Facility: [facility] Address: [address] [place], [place] [address] Performed By: #### 2 4323-8, 83020-8 ####[facility] LABCLIA [id number] [address] [address] [place] Creatinine [Mass/Vol] 0.70 mg/dL Normal 0.58-0.[address] [facility] Comment on above: Order Comment: Speci men Type: BLOOD SPECIMENOrdering Facility: [facility] Address: [address] [place] [id number] Performed By: #### 2 4323-8, 14901-1 ####[facility] LABIA [id number] [place] [address] [place] Creatinine and Glomerular filtration rate.predicted panel (S/P/Bld) 85 mL/min/1.73m??? Normal >=60 [facility] Comment on above: Order Comment: Marcel hopper Type: BLOOD SPECIMENOrdering Facility: [facility] Address: [address] [place] [address] Result Comment: Linda mated Glomerular Filtration Rate [...] actual GFR. Performed By: #### 2 4323-8, 56071-9 ####[facility] LABIA [id number] [place] [address] [place] Glucose [Mass/Vol] 93 mg/dL Normal 74-99 [facility] Comment on above: Order Comment: Marcel ward Type: BLOOD SPECIMENOrdering Facility: [facility] Address: [address] [place] [address] Result Comment: The [place] Diabetes Association (ADA) provides guidance for cutoff [...] Standards of Medical Care in Diabetes 2016, [employer] Diabetes Association. Diabetes Care. 2016.39(Suppl 1). Performed By: #### 2 4323-8, 60905-5 ####[facility] LABCLIA [id number] [address] [address] [place] Potassium [Moles/Vol] 4.0 mmol/L Normal 3.7-5.[address] [facility] Comment on above: Order Comment: Speci men Type: BLOOD SPECIMENOrdering Facility: [facility] Address: [address] [place] [address] Performed By: #### 2 4323-8, 19642-5 ####[facility] LABCLIA [id number] [address] [address] [place] Protein [Mass/Vol] 6.6 g/dL Normal 6.3-8.0 [facility] Comment on above: Order Comment: Speci men Type: BLOOD SPECIMENOrdering Facility: [facility] Address: [address] [place] [address] Performed By: #### 2 4323-8, 61978-8 ####[facility] LABCLIA [id number] [place] [address] [place] Sodium [Moles/Vol] 139 mmol/L Normal 136-144 [facility] Comment on above: Order Comment: Speci men Type: BLOOD SPECIMENOrdering Facility: [facility] Address: [address] [place], [place] [address] Performed By: #### 2 4323-8, 97818-7 ####[facility] LABCLIA [id number] [address] [address] [place] Urea nitrogen [Mass/Vol] 14 mg/dL Normal 7-21 [facility] Comment on above: Order Comment: Speci men Type: BLOOD SPECIMENOrdering Facility: [facility] Address: [address] [place], [place] [address] Performed By: #### 2 4323-8, 02620-0 ####[facility] LABCLIA [id number] [address] [place] HbA1c (Bld)on 05-06-2025 Average glucose Estimated from glycated hemoglobin (Bld) [Mass/Vol] 74 mg/dL Normal [facility] Comment on above: Order Comment: Marcel hopper Type: BLOOD SPECIMENOrdering Facility: [facility] Address: [address] [place] [address] Result Comment: eAG: (Estimated average glucose) is a calculated value from HgbA1c and is marketing sales representative of the average blood glucose level in the last 2-3 month period. Performed By: #### 5 5454-3 ####[facility] [id number] [address] [place] HbA1c (Bld) [Mass fraction] 4.2 % Low 4.3-5.6 [facility] Comment on above: Order Comment: Marcel hopper Type: BLOOD SPECIMENOrdering Facility: [facility] Address: [address] [place] [address] Result Comment: Amer ican Diabetes Association guidelines indicate that patients with HgbA1c in the range 5.7-6.4% are at increased risk for development of diabetes, and intervention by lifestyle modification may be beneficial. HgbA1c greater or equal to 6.5% is considered diagnostic of diabetes. Performed By: #### 5 5454-3 ####[facility] [id number] [address] [place] NT-proBNP [facility] 05-06 Natriuretic peptide.B prohormone N-Terminal [Mass/Vol] 113 pg/mL Normal <450 [facility] Comment on above: Order Comment: Marcel hopper Type: BLOOD SPECIMENOrdering Facility: [facility] Address: [address] [place] [address] Performed By: #### 2 4323-8, 88424-6 ####[facility] [id number] [address] [place] CNPNon 05-04-2025 CNPN Telephone (FAMPWS) MICHAELA BRANDT ([id number]) 1940 F Date Time Provider Department 05/04/25 [facility] During your visit today, we recorded the following information about you: Nisha Clayton LPN 05/04/2025 8:50 AM Signed Brittni with [facility] calls in regards to TE from 04/24: Solange Craig RN 04/24/25 11:13 AM Note Brissa from [facility] is calling due to she saw patient [...] 4:11 PM Signed Detailed message on secure [employer]. Pamela Power MA May 04, 2025 4:11 [...] DELMY (dementia of Alzheimer type) ([facility]) [G30.9, *04/17/2025 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] 04/17/2025 Closed fracture of left hip ([facility]) [S72.002A] 04/17/2025 Balance disorder [R26.89] 04/17/2025 Weakness of both lower extremities [R29.898] 04/17/2025 Encounter Status:Closed by PAMELA POWER on 05/04/25 [facility] 04-27-2025 [facility]UROL[facility] MICHAELA BRANDT ([id number]) 1940 F Date Time Provider Department 04/27/25 [...] of orders. Please fax to Savanah at [facility] [phone]. JAIRON notes faxed through [facility]. EVON Miller Courtney, ZACHARIAH 04/27/2025 [...] 10:03 AM Signed Tom Baltazar PA-C You; [facility] Urology Pool; Desi Bergman RN1 hour ago (8:44 AM) Please write orders and fax to [facility] today id needed [facility] not [facility] VADIM Stanford MT, PA-C Orders [...] of the catheter discussion. Regards, Dillan PalmerNusrat UI ARCHITECT 05/06/2025 3:41 PM Signed Orders, urology office notes faxed to [facility]. RAMIREZ ValdesTemitopeNusratRAMIREZ 05/06/2025 3:50 PM Signed Called [facility], phone number for Savanah. Informed orders/office notes for urology in 12/23/2024 faxed. Awaiting lizarraga cathter size from provider. NusratRAMIREZ AlanizNusratRAMIREZ 05/07/2025 12:50 PM Signed Tom Baltazar PA-C You18 hours ago (5:52 PM) I am not the provider who has pt under home health care, that provider should be ordering the lizarraga exchanges and supplies needed. VADIM Stanford, NASIR TAVERA Called Savanah with [facility] on secured line- no answer. Left message from Tom. Nusrat Palmer LPN Allergies As of Date: 04/27/2025 (No Known Allergies) Date Reviewed: 04/17/2025 Reviewed by: Mike Guo MA - Fully Assessed Reason for Visit: Orders [681] Cmt: Self catheter Primary Visit Diagnosis:Urine retention [R33.9] Order(s):CATHETER INSERT-LIZARRAGA [[id number]] Order #: [id number] STANDING BEDSIDE DRAINAGE BAG [[id number]] Order #: [id number] STANDING sodium chloride 0.9 % IRRIGATIONIrrigate 60 mL as instructed once daily as needed.Disp: 1999 mLRfl: 3 BEDSIDE DRAINAGE BAG [[id number]] Order #: [id number] Prescriptions as of 05/07/2025 - sodium chloride [...] DELMY (dementia of Alzheimer type) ([facility]) [G30.9, *04/17/2025 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] 04/17/2025 Closed fracture of left hip ([facility]) [S72.002A] 04/17/2025 Balance disorder [R26.89] 04/17/2025 Weakness of both lower extremities [R29.898] 04/17/2025 Prescriptions ordered this encounter Disp Refills Start End SODIUM CH (more content not included)... Normal [facility] 04-24-2025 [facility] (COUMWS[facility] MICHAELA BRANDT ([id number]) 1940 F Date Time Provider Department 04/24/25 DILLAN SANTIAGO During your visit today, we recorded the following information about you: Solange Craig, RN 04/24/2025 11:13 AM Signed Brissa from [facility] is calling due to she saw patient [...] if she should take her mother to [facility] ER or a [facility] ER. She states since she is affiliated with [facility] would it be in her best interest to just go to the [facility]. I told her that is up to her, but the closest one would be [facility], [facility], or [facility]. She said if they went to [facility] they could always get her transfer to [...] DELMY (dementia of Alzheimer type) ([facility]) [G30.9, *04/17/2025 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] 04/17/2025 Closed fracture of left hip ([facility]) [S72.002A] 04/17/2025 Balance disorder [R26.89] 04/17/2025 Weakness of both lower extremities [R29.898] 04/17/2025 Encounter Status:Closed by SOLANGE CRAIG on 04/28/25 [facility] Markus 04-21-2025 [facility] Telephone (FAMPWS) MICHAELA BRANDT ([id number]) 1940 F Date Time Provider Department 04/21/25 [...] DELMY (dementia of Alzheimer type) ([facility]) [G30.9, *04/17/2025 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] 04/17/2025 Closed fracture of left hip ([facility]) [S72.002A] 04/17/2025 Balance disorder [R26.89] 04/17/2025 Weakness of both lower extremities [R29.898] 04/17/2025 Encounter Status:Closed by MCKENZIE LOMBARDO on 04/22/25 Normal [facility] CNPNon 04-20-2025 CNPN Telephone (INTMWS) MICHAELA BRANDT ([id number]) 1940 F Date Time Provider Department 04/20/25 DILLAN SANTIAGO During your visit today, we recorded the following information about you: Gabi Mcelroy, RN 04/20/2025 3:09 PM Signed My CAO with [facility] called in POC. She states will be seeing Pt three times a week for 2 weeks, then twice a week for 3 weeks, then once a week for 3 weeks. She states she is going to schedule a visit tomorrow if the provider will give them order to reinsert a lizarraga catheter. She reports [facility] lizarraga catheter in, and [...] and left a message for My with [facility] that if she has an updated medication list from when the Pt was in the [facility] if she could fax that to Dr Santiago at [phone]. ZACHARIAH Antonio Beth, LPN 04/20/2025 3:36 PM Signed My calling back she will fax list from the SNF and will have to update med list with her admission notes to [facility] and fax that when she is able. Josy Saucedo RN 04/20/2025 4:08 PM Signed Call received from nurse My at [facility], regarding orders for Pt (see below notation). [facility] nurse observed Pt self-cath, and she was not cleansing herself well. Pt's daughter is voicing concern about Pt's inability to do this at home. [facility] is requesting order for chronic indwelling lizarraga cathether, 16F. Last OV with urology - Tom Baltazar PA-C: [facility]: [facility] office phone: Fax number for orders: Josy Saucedo RN April 20, 2025 4:07 PM Dillan Santiago MD 04/20/2025 5:03 PM Signed Agree Does she need orders for the 16 uruguayan indwelling lizarraga? Thanks Regards, Gabi Cesar MD, RN 04/20/2025 5:14 PM Signed My CAO with [facility] called and is notified of providers message. She voices understanding and reports that yes she does need the orders for the 16 uruguayan indwelling lizarraga. She states she can take a verbal order for that and we can leave a VM as her line is secure. She is also going to have her office fax over an updated medication list from [facility] when she is done with her note. [...] hemiarthroplasty [Z9 (more content not included)... Normal [facility] CNOVon 04-17-2025 CNOV Office Visit (INTMWS ) ALIZAMICHAELA ([id number]) 1940 F Date Time Provider Department 04/17/25 [...] is a positive sign for healing. - [facility] will be arranged to clean and care [...] you have experienced in the past. - [facility] will assist with catheter care, including monthly [...] These were helpful during your stay at [facility]. - Mental Health: - You are experiencing [...] are awaiting an updated medication list from [facility] to confirm all current prescriptions and dosages. - Living Arrangements: - Your daughter is exploring assisted living options for you, including a facility in [facility]. This will require private pay for two [...] - A referral has been sent to [facility] for halfway, PT, and OT. They will also assess [...] support your care needs. Next Steps: - [facility], PT, and OT will be arranged through [...] transitional care (more content not included)... Normal [facility] 04-17-2025 CNPN Telephone (INTMWS) MICHAELA BRANTD ([id number]) 1940 F Date Time Provider Department 04/17/25 DILLAN SANTIAGO INTMWS During your visit today, we recorded the following information about you: Mike Guo MA 04/17/2025 11:44 AM Signed TC to nurse at [facility] to obtain current med list. Unable to [...] Assessed Reason for Visit: Request information from [facility] [Other] Prescriptions as of 04/20/2025 - citalopram [...] DELMY (dementia of Alzheimer type) ([facility]) [G30.9, *04/17/2025 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] 04/17/2025 Closed fracture of left hip ([facility]) [S72.002A] 04/17/2025 Balance disorder [R26.89] 04/17/2025 Weakness of both lower extremities [R29.898] 04/17/2025 Encounter Status:Closed by GABI [facility]Y [facility] ([id number]) 1940 F Date Time Provider Department 04/17/25 [...] Status:Closed by GABI MCELROY on 04/17/25 [facility] ([id number]) 1940 F Date Time Provider Department 04/17/25 KENTRELL MONTGOMERY During your visit today, we recorded the following information about you: Bethaniechino Kentrell, SUPPLY AND DISTRIBUTION MANAGER 04/17/2025 1:00 PM Signed This Sw received SW consult and will work on reaching out to patient daughter to discuss social service needs. This Sw also notes that there is a message from today from [facility] noting orders for SN,PT,OT. It looks like Dr. Santiago agreed to built.io seeing patient. BethanieKentrell magana, SUPPLY AND DISTRIBUTION MANAGER 04/17/2025 1:49 PM Signed Sw tried call to patient daughter and vmail is full, unable to leave message. Sw will try call another time. GrayKentrell flowers, SUPPLY AND DISTRIBUTION MANAGER 04/17/2025 3:19 PM Signed Sw spoke with patient daughter in regards to Home Health questions and also current housing AL options. Maribeth and Thomas discussed that [facility] looks to be an option for home healthcare. Sw left message for [facility] referral line to call this Sw back to confirm if they will be serving patient home healthcare needs. Maribeth notes that [facility] will be providing home youth care specialist next week when patient stays at her apt. Maribeth notes that patient will then be coming to stay with her,until opening at [facility]. Maribeth notes that she is working on getting bedroom ready at there home for patient to come and stay with he. There is a wait list at [facility]. Thomas will let patient daughter know what she finds out from [facility]. Maribeth also mentioned a letter for her mom's current [place] apt, to see about being released from [...] DELMY (dementia of Alzheimer type) ([facility]) [G30.9, *04/17/2025 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] 04/17/2025 Closed fracture of left hip ([facility]) [S72.002A] 04/17/2025 Balance disorder [R26.89] 04/17/2025 Weakness of both lower extremities [R29.898] 04/17/2025 Encounter Status:Closed by DILLAN SANTIAGO on 04/17/25 Normal [facility] Basic Metabolic Profile (BMP )on 04-09-2025 BUN Normal - [facility] Comment on above: Result Comment: Canc elled via OM: Order cancelled - Patient discharged Performed By: #### L 100.0100, L500.2500 ####[facility] [address] [place], [address] BUN/CRE Normal 10-20 [facility] Comment on above: Result Comment: Canc elled via OM: Order cancelled - Patient discharged Performed By: #### L 100.0100, L500.2500 ####[facility] [address] [place], [address] Calcium Normal 7.6-11.0 [facility] Comment on above: Result Comment: Canc elled via OM: Order cancelled - Patient discharged Performed By: #### L 100.0100, L500.2500 ####[facility] [address] [place], [address] CL Normal 98-108 [facility] Comment on above: Result Comment: Canc elled via OM: Order cancelled - Patient discharged Performed By: #### L 100.0100, L500.2500 ####[facility] [address] [place], [address] CO2 Normal 21.0-32.0 [facility] Comment on above: Result Comment: Canc elled via OM: Order cancelled - Patient discharged Performed By: #### L 100.0100, L500.2500 ####[facility] [address] [place], [address] CREAT,SERUM Normal 0.70-1.20 [facility] Comment on above: Result Comment: Canc elled via OM: Order cancelled - Patient discharged Performed By: #### L 100.0100, L500.2500 ####[facility] [address] [place], [address] eGFR Normal >60 [facility] Comment on above: Result Comment: Canc elled via OM: Order cancelled - Patient discharged Performed By: #### L 100.0100, L500.2500 ####[facility] [address] [place], [address] GAP Normal 5-15 [facility] Comment on above: Result Comment: Canc elled via OM: Order cancelled - Patient discharged Performed By: #### L 100.0100, L500.2500 ####[facility] [address] [place], [address] GLU Normal 70-99 [facility] Comment on above: Result Comment: Canc elled via OM: Order cancelled - Patient discharged Performed By: #### L 100.0100, L500.2500 ####[facility] [address] [place], [address] Potassium Normal 3.3-5.1 [facility] Comment on above: Result Comment: Canc elled via OM: Order cancelled - Patient discharged Performed By: #### L 100.0100, L500.2500 ####[facility] [address] [place], [address] Basic Metabolic Profile (BMP) Normal 133-145 [facility] Comment on above: Result Comment: Canc elled via OM: Order cancelled - Patient discharged Performed By: #### L 100.0100, L500.2500 ####[facility] [address] [place], [address] CBC W/Diff, Automatedon 05-2 Absolute Neut Normal 2.0-7.7 [facility] Comment on above: Result Comment: Canc elled via OM: Order cancelled - Patient discharged Performed By: #### L 100.0100, L500.2500 ####[facility] [address] [place], [address] HCT Normal 37-47 [facility] Comment on above: Result Comment: Canc elled via OM: Order cancelled - Patient discharged Performed By: #### L 100.0100, L500.2500 ####[facility] [address] [place], [address] HGB Normal 12.0-15.0 [facility] Comment on above: Result Comment: Canc elled via OM: Order cancelled - Patient discharged Performed By: #### L 100.0100, L500.2500 ####[facility] [address] [place], [address] MCH Normal 27.0-32.0 [facility] Comment on above: Result Comment: Canc elled via OM: Order cancelled - Patient discharged Performed By: #### L 100.0100, L500.2500 ####[facility] [address] [place], [address] MCHC Normal 32-36 [facility] Comment on above: Result Comment: Canc elled via OM: Order cancelled - Patient discharged Performed By: #### L 100.0100, L500.2500 ####[facility] [address] [place], [address] MCV Normal 81-99 [facility] Comment on above: Result Comment: Canc elled via OM: Order cancelled - Patient discharged Performed By: #### L 100.0100, L500.2500 ####[facility] [address] [place], [address] NEUT% Normal 47-70 [facility] Comment on above: Result Comment: Canc elled via OM: Order cancelled - Patient discharged Performed By: #### L 100.0100, L500.2500 ####[facility] [address] [place], [address] PLT Normal 150-450 [facility] Comment on above: Result Comment: Canc elled via OM: Order cancelled - Patient discharged Performed By: #### L 100.0100, L500.2500 ####[facility] [address] [place], [address] RBC Normal 4.2-5.4 [facility] Comment on above: Result Comment: Canc elled via OM: Order cancelled - Patient discharged Performed By: #### L 100.0100, L500.2500 ####[facility] [address] [place], [address] RDW CV Normal 11.6-14.6 [facility] Comment on above: Result Comment: Canc elled via OM: Order cancelled - Patient discharged Performed By: #### L 100.0100, L500.2500 ####[facility] [address] [place], [address] RDW SD Normal 35.1-43.9 [facility] Comment on above: Result Comment: Canc elled via OM: Order cancelled - Patient discharged Performed By: #### L 100.0100, L500.2500 ####[facility] [address] [place], [address] WBC Normal 4.4-11.0 [facility] Comment on above: Result Comment: Canc elled via OM: Order cancelled - Patient discharged Performed By: #### L 100.0100, L500.2500 ####[facility] [address] [place], [address] Absolute lymphocyte countOrd ered By: Adele Gusman on 04-06-2025 Lymphocytes Auto (Unsp spec) [#/Vol] 1.67 10*3/uL 0.83-4.51 [facility] Absolute neutrophil countOrd ered By: elsa Gumsan on 04-06-2025 Neutrophils (Bld) [#/Vol] 6.8 10*3/uL 2.0-7.7 [facility] Anion gap in Serum or Plasma Ordered By: Adele Gusman on 04-06-2025 Anion gap [Moles/Vol] 10 mmol/L 5-15 [facility] Automated lymphocyte count a s percentage of total leukocytesOrdered By: Adele Gusman on 04-06-2025 Lymphocytes/100 WBC Auto (Unsp spec) 17.8 % Low - [facility] BUN/creatinine ratioOrdered By: elsa Gusman on 04-06-2025 Urea nitrogen/Creatinine [Mass ratio] 18.7 mg/mg 10-20 [facility] Basophil percentageOrdered B y: Adele Gusman on 04-06-2025 Basophils/100 WBC (Bld) 0.4 % 0-1 [facility] Carbon dioxide, total [Moles /volume] in Central venous bloodOrdered By: Adele Gusman on 04-06-2025 CO2 [Moles/Vol] 25.7 mmol/L 21.0-32.0 [facility] Chloride assayOrdered By: Jennifer Gusman on 04-06-2025 Chloride [Moles/Vol] 106 mmol/L 98-108 [facility] Eosinophil percentageOrdered By: elsa Gusman on 04-06-2025 Eosinophils/100 WBC (Bld) 1.2 % 0-5 [facility] Erythrocyte distribution wid th ratioOrdered By: elsa Gusman on 04-06-2025 Erythrocyte distribution width (RBC) [Ratio] 13.7 % 11.6-14.6 [facility] Erythrocyte distribution wid th standard deviationOrdered By: macariohuntsvillemaxim Gusman on 04-06-2025 Erythrocyte distribution width (RBC) [Ratio] 46.9 fl High 35.1-43.9 [facility] Glomerular filtration rate ( GFR) estimation/1.73 sq m using serum, plasma, or whole bOrdered By: Adele Gusman on 04-06-2025 GFR/1.73 sq M.predicted among non-blacks MDRD (S/P/Bld) [Vol rate/Area] 74 mL/min/{1.73_m2} >60 [facility] Comment on above: mL/min/1.73m2 CKD-EP I Creatinine Equation (2020) Hematocrit Auto (Bld) [Volum e fraction]Ordered By: Adele Gusman on 04-06-2025 Hematocrit (Bld) [Volume fraction] 33.6 % Low 37-47 [facility] Hemoglobin measurementOrdere d By: Adele Gusman on 04-06-2025 Hemoglobin (Bld) [Mass/Vol] 11.4 g/dL Low 12.0-15.0 [facility] Immature granulocytes/100 WB C Auto (Bld)Ordered By: Adele Gusman on 04-06-2025 Immature granulocytes/100 WBC (Bld) 1.000 % High 0.0-0.9 [facility] Comment on above: IG% - Immature Granu locytes (promyelocytes, myelocytes and metamyelocytes) > 1% indicates that a LEFT SHIFT is Present. MCV (mean corpuscular volume ) determinationOrdered By: Adele Gusman on 04-06-2025 MCV (RBC) [Entitic vol] 91.8 fL 81-99 [facility] Mean corpuscular hemoglobin (MCH) determinationOrdered By: Adele Gusman on 04-06-2025 MCH (RBC) [Entitic mass] 31.1 pg 27.0-32.0 [facility] Mean corpuscular hemoglobin concentration (MCHC) determinationOrdered By: Adele Gusman on 04-06-2025 MCHC (RBC) [Mass/Vol] 33.9 g/dL 32-36 [facility] Mean platelet volume determi nationOrdered By: Adele Gusman on 04-06-2025 Platelet mean volume (Bld) [Entitic vol] 10.9 fL 6.2-12.0 [facility] Monocyte percentageOrdered B y: Adele Gusman on 04-06-2025 Monocytes/100 WBC (Bld) 7.3 % 0-10 [facility] Neutrophil percentageOrdered By: elsa Gusman on 04-06-2025 Neutrophils/100 WBC (Bld) 72.3 % High 47-70 [facility] Nucleated red blood cell per centageOrdered By: Adele Gusman on 04-06-2025 Nucleated RBC/100 WBC (Bld) [Ratio] 0 % 0-5 [facility] Platelet countOrdered By: Jennifer Gusman on 04-06-2025 Platelets (Bld) [#/Vol] 160 10*3/uL 150-450 [facility] Potassium measurement (mass/ volume)Ordered By: Adele Gusman on 04-06-2025 Potassium (Unsp spec) [Mass/Vol] 3.6 mmol/L 3.3-5.1 [facility] RBC Auto (Bld) [#/Vol]Ordere d By: Adele Gusman on 04-06-2025 RBC (Bld) [#/Vol] 3.66 10*6/uL Low 4.2-5.4 [facility] Serum creatinine measurement (mass/volume)Ordered By: Adele Gusman on 04-06-2025 Creatinine [Mass/Vol] 0.79 mg/dL 0.70-1.20 [facility] Serum glucose measurement (m ass/volume)Ordered By: Adele Gusman on 04-06-2025 Glucose [Mass/Vol] 90 mg/dL 70-99 [facility] Serum or plasma calcium thomas urement (mass/volume)Ordered By: Adele Aryayvon on 04-06-2025 Calcium [Mass/Vol] 8.9 mg/dL 7.6-11.0 [facility] Serum or plasma urea nitroge n measurement (mass/volume)Ordered By: Sharlenehuntsvillemaxim Gusman on 04-06-2025 Urea nitrogen [Mass/Vol] 15 mg/dL - [facility] Sodium levelOrdered By: Sharlene Gusman on 04-06-2025 Sodium [Moles/Vol] 142 mmol/L 133-145 [facility] White blood cell (WBC) count Ordered By: Adele Gusman on 04-06-2025 WBC (Bld) [#/Vol] 9.4 10*3/uL 4.4-11.0 [facility] Basic Metabolic Profile (BMP )on 04-02-2025 BUN Normal - [facility] Comment on above: Result Comment: Canc elled via OM: Order cancelled - Patient discharged Performed By: #### L 100.0100, L500.2500 ####[facility] [address] [place], [address] BUN/CRE Normal - [facility] Comment on above: Result Comment: Canc elled via OM: Order cancelled - Patient discharged Performed By: #### L 100.0100, L500.2500 ####[facility] [address] [place], [address] Calcium Normal 7.6-11.0 [facility] Comment on above: Result Comment: Canc elled via OM: Order cancelled - Patient discharged Performed By: #### L 100.0100, L500.2500 ####[facility] [address] [place], [address] CL Normal 98-108 [facility] Comment on above: Result Comment: Canc elled via OM: Order cancelled - Patient discharged Performed By: #### L 100.0100, L500.2500 ####[facility] [address] [place], [address] CO2 Normal 21.0-32.0 [facility] Comment on above: Result Comment: Canc elled via OM: Order cancelled - Patient discharged Performed By: #### L 100.0100, L500.2500 ####[facility] [address] [place], [address] CREAT,SERUM Normal 0.70-1.20 [facility] Comment on above: Result Comment: Canc elled via OM: Order cancelled - Patient discharged Performed By: #### L 100.0100, L500.2500 ####[facility] [address] [place], [address] eGFR Normal >60 [facility] Comment on above: Result Comment: Canc elled via OM: Order cancelled - Patient discharged Performed By: #### L 100.0100, L500.2500 ####[facility] [address] [place], [address] GAP Normal 5-15 [facility] Comment on above: Result Comment: Canc elled via OM: Order cancelled - Patient discharged Performed By: #### L 100.0100, L500.2500 ####[facility] [address] [place], [address] GLU Normal 70-99 [facility] Comment on above: Result Comment: Canc elled via OM: Order cancelled - Patient discharged Performed By: #### L 100.0100, L500.2500 ####[facility] [address] [place], [address] Potassium Normal 3.3-5.1 [facility] Comment on above: Result Comment: Canc elled via OM: Order cancelled - Patient discharged Performed By: #### L 100.0100, L500.2500 ####[facility] [address] [place], [address] Basic Metabolic Profile (BMP) Normal 133-145 [facility] Comment on above: Result Comment: Canc elled via OM: Order cancelled - Patient discharged Performed By: #### L 100.0100, L500.2500 ####[facility] [address] [place], [address] CBC W/Diff, Automatedon 05-1 Absolute Neut Normal 2.0-7.7 [facility] Comment on above: Result Comment: Canc elled via OM: Order cancelled - Patient discharged Performed By: #### L 100.0100, L500.2500 ####[facility] [address] [place], [address] HCT Normal 37-47 [facility] Comment on above: Result Comment: Canc elled via OM: Order cancelled - Patient discharged Performed By: #### L 100.0100, L500.2500 ####[facility] [address] [place], [address] HGB Normal 12.0-15.0 [facility] Comment on above: Result Comment: Canc elled via OM: Order cancelled - Patient discharged Performed By: #### L 100.0100, L500.2500 ####[facility] [address] [place], [address] MCH Normal 27.0-32.0 [facility] Comment on above: Result Comment: Canc elled via OM: Order cancelled - Patient discharged Performed By: #### L 100.0100, L500.2500 ####[facility] [address] [place], [address] MCHC Normal 32-36 [facility] Comment on above: Result Comment: Canc elled via OM: Order cancelled - Patient discharged Performed By: #### L 100.0100, L500.2500 ####[facility] [address] [place], [address] MCV Normal 81-99 [facility] Comment on above: Result Comment: Canc elled via OM: Order cancelled - Patient discharged Performed By: #### L 100.0100, L500.2500 ####[facility] [address] [place], [address] NEUT% Normal 47-70 [facility] Comment on above: Result Comment: Canc elled via OM: Order cancelled - Patient discharged Performed By: #### L 100.0100, L500.2500 ####[facility] [address] [place], [address] PLT Normal 150-450 [facility] Comment on above: Result Comment: Canc elled via OM: Order cancelled - Patient discharged Performed By: #### L 100.0100, L500.2500 ####[facility] [address] [place], [address] RBC Normal 4.2-5.4 [facility] Comment on above: Result Comment: Canc elled via OM: Order cancelled - Patient discharged Performed By: #### L 100.0100, L500.2500 ####[facility] [address] [place], [address] RDW CV Normal 11.6-14.6 [facility] Comment on above: Result Comment: Canc elled via OM: Order cancelled - Patient discharged Performed By: #### L 100.0100, L500.2500 ####[facility] [address] [place], [address] RDW SD Normal 35.1-43.9 [facility] Comment on above: Result Comment: Canc elled via OM: Order cancelled - Patient discharged Performed By: #### L 100.0100, L500.2500 ####[facility] [address] [place], [address] WBC Normal 4.4-11.0 [facility] Comment on above: Result Comment: Canc elled via OM: Order cancelled - Patient discharged Performed By: #### L 100.0100, L500.2500 ####[facility] [address] [place], [address] Absolute lymphocyte countOrd ered By: Daya Morgan on 03-30-2025 Lymphocytes Auto (Unsp spec) [#/Vol] 1.33 10*3/uL 0.83-4.51 [facility] Absolute neutrophil countOrd ered By: Daya Morgan on 03-30-2025 Neutrophils (Bld) [#/Vol] 6.3 10*3/uL 2.0-7.7 [facility] Anion gap in Serum or Plasma Ordered By: Daya Morgan on 03-30-2025 Anion gap [Moles/Vol] 9 mmol/L 5-15 [facility] Automated lymphocyte count a s percentage of total leukocytesOrdered By: Daya Morgan on 03-30-2025 Lymphocytes/100 WBC Auto (Unsp spec) 15.4 % Low 19-41 [facility] BUN/creatinine ratioOrdered By: Daya Morgan on 03-30-2025 Urea nitrogen/Creatinine [Mass ratio] 14.8 mg/mg 10-20 [facility] Basophil percentageOrdered B y: Daya Morgan on 03-30-2025 Basophils/100 WBC (Bld) 0.7 % 0-1 [facility] Carbon dioxide, total [Moles /volume] in Central venous bloodOrdered By: Daya Morgan on 03-30-2025 CO2 [Moles/Vol] 28.0 mmol/L 21.0-32.0 [facility] Chloride assayOrdered By: Will Morgan on 03-30-2025 Chloride [Moles/Vol] 105 mmol/L 98-108 [facility] Eosinophil percentageOrdered By: Daya Morgan on 03-30-2025 Eosinophils/100 WBC (Bld) 1.4 % 0-5 [facility] Erythrocyte distribution wid th ratioOrdered By: Daya Morgan on 03-30-2025 Erythrocyte distribution width (RBC) [Ratio] 14.2 % 11.6-14.6 [facility] Erythrocyte distribution wid th standard deviationOrdered By: Daya Morgan on 03-30-2025 Erythrocyte distribution width (RBC) [Ratio] 48.0 fl High 35.1-43.9 [facility] Glomerular filtration rate ( GFR) estimation/1.73 sq m using serum, plasma, or whole bOrdered By: Daya Morgan on 03-30-2025 GFR/1.73 sq M.predicted among non-blacks MDRD (S/P/Bld) [Vol rate/Area] 70 mL/min/{1.73_m2} >60 [facility] Comment on above: mL/min/1.73m2 CKD-EP I Creatinine Equation (2020) Hematocrit Auto (Bld) [Volum e fraction]Ordered By: Daya Morgan on 03-30-2025 Hematocrit (Bld) [Volume fraction] 34.1 % Low 37-47 [facility] Hemoglobin measurementOrdere d By: Daya Morgan on 03-30-2025 Hemoglobin (Bld) [Mass/Vol] 11.3 g/dL Low 12.0-15.0 [facility] Immature granulocytes/100 WB C Auto (Bld)Ordered By: Daya Morgan on 03-30-2025 Immature granulocytes/100 WBC (Bld) 0.900 % 0.0-0.9 [facility] Comment on above: IG% - Immature Granu locytes (promyelocytes, myelocytes and metamyelocytes) > 1% indicates that a LEFT SHIFT is Present. MCV (mean corpuscular volume ) determinationOrdered By: Daya Morgan on 03-30-2025 MCV (RBC) [Entitic vol] 93.7 fL 81-99 [facility] Mean corpuscular hemoglobin (MCH) determinationOrdered By: Daya Morgan on 03-30-2025 MCH (RBC) [Entitic mass] 31.0 pg 27.0-32.0 [facility] Mean corpuscular hemoglobin concentration (MCHC) determinationOrdered By: Daya Morgan on 03-30-2025 MCHC (RBC) [Mass/Vol] 33.1 g/dL 32-36 [facility] Mean platelet volume determi nationOrdered By: Daya Morgan on 03-30-2025 Platelet mean volume (Bld) [Entitic vol] 10.8 fL 6.2-12.0 [facility] Monocyte percentageOrdered B y: Daya Morgan on 03-30-2025 Monocytes/100 WBC (Bld) 8.2 % 0-10 [facility] Neutrophil percentageOrdered By: Daya Morgan on 03-30-2025 Neutrophils/100 WBC (Bld) 73.4 % High 47-70 [facility] Nucleated red blood cell per centageOrdered By: Daya Morgan on 03-30-2025 Nucleated RBC/100 WBC (Bld) [Ratio] 0 % 0-5 [facility] Platelet countOrdered By: Will Morgan on 03-30-2025 Platelets (Bld) [#/Vol] 160 10*3/uL 150-450 [facility] Potassium measurement (mass/ volume)Ordered By: Daya Morgan on 03-30-2025 Potassium (Unsp spec) [Mass/Vol] 3.6 mmol/L 3.3-5.1 [facility] RBC Auto (Bld) [#/Vol]Ordere d By: Daya Morgan on 03-30-2025 RBC (Bld) [#/Vol] 3.64 10*6/uL Low 4.2-5.4 [facility] Serum creatinine measurement (mass/volume)Ordered By: Daya Morgan on 03-30-2025 Creatinine [Mass/Vol] 0.83 mg/dL 0.70-1.20 [facility] Serum glucose measurement (m ass/volume)Ordered By: Daya Morgan on 03-30-2025 Glucose [Mass/Vol] 91 mg/dL 70-99 [facility] Serum or plasma calcium thomas urement (mass/volume)Ordered By: Daya Morgan on 03-30-2025 Calcium [Mass/Vol] 9.0 mg/dL 7.6-11.0 [facility] Serum or plasma urea nitroge n measurement (mass/volume)Ordered By: Daya Morgan on 03-30-2025 Urea nitrogen [Mass/Vol] 12 mg/dL 4-19 [facility] Sodium levelOrdered By: Katarina Morgan on 03-30-2025 Sodium [Moles/Vol] 141 mmol/L 133-145 [facility] White blood cell (WBC) count Ordered By: Daya Morgan on 03-30-2025 WBC (Bld) [#/Vol] 8.6 10*3/uL 4.4-11.0 [facility] Basic Metabolic Profile (BMP )on 03-26-2025 BUN Normal 4-19 [facility] Comment on above: Result Comment: Canc elled via OM: Order cancelled - Patient discharged Performed By: #### L 100.0100, L500.2500 ####[facility] [address] [facility] [address] BUN/CRE Normal 10-20 [facility] Comment on above: Result Comment: Canc elled via OM: Order cancelled - Patient discharged Performed By: #### L 100.0100, L500.2500 ####[facility] [address] [place], [address] Calcium Normal 7.6-11.0 [facility] Comment on above: Result Comment: Canc elled via OM: Order cancelled - Patient discharged Performed By: #### L 100.0100, L500.2500 ####[facility] [address] [place], [address] CL Normal 98-108 [facility] Comment on above: Result Comment: Canc elled via OM: Order cancelled - Patient discharged Performed By: #### L 100.0100, L500.2500 ####[facility] [address] [place], [address] CO2 Normal 21.0-32.0 [facility] Comment on above: Result Comment: Canc elled via OM: Order cancelled - Patient discharged Performed By: #### L 100.0100, L500.2500 ####[facility] [address] [place], [address] CREAT,SERUM Normal 0.70-1.20 [facility] Comment on above: Result Comment: Canc elled via OM: Order cancelled - Patient discharged Performed By: #### L 100.0100, L500.2500 ####[facility] [address] [place], [address] eGFR Normal >60 [facility] Comment on above: Result Comment: Canc elled via OM: Order cancelled - Patient discharged Performed By: #### L 100.0100, L500.2500 ####[facility] [address] [place], [address] GAP Normal 5-15 [facility] Comment on above: Result Comment: Canc elled via OM: Order cancelled - Patient discharged Performed By: #### L 100.0100, L500.2500 ####[facility] [address] [place], [address] GLU Normal 70-99 [facility] Comment on above: Result Comment: Canc elled via OM: Order cancelled - Patient discharged Performed By: #### L 100.0100, L500.2500 ####[facility] [address] [place], [address] Potassium Normal 3.3-5.1 [facility] Comment on above: Result Comment: Canc elled via OM: Order cancelled - Patient discharged Performed By: #### L 100.0100, L500.2500 ####[facility] [address] [place], [address] Basic Metabolic Profile (BMP) Normal 133-145 [facility] Comment on above: Result Comment: Canc elled via OM: Order cancelled - Patient discharged Performed By: #### L 100.0100, L500.2500 ####[facility] [address] [place], [address] CBC W/Diff, Automatedon 05-0 -2024 Absolute Neut Normal 2.0-7.7 [facility] Comment on above: Result Comment: Canc elled via OM: Order cancelled - Patient discharged Performed By: #### L 100.0100, L500.2500 ####[facility] [address] [place], [address] HCT Normal 37-47 [facility] Comment on above: Result Comment: Canc elled via OM: Order cancelled - Patient discharged Performed By: #### L 100.0100, L500.2500 ####[facility] [address] [place], [address] HGB Normal 12.0-15.0 [facility] Comment on above: Result Comment: Canc elled via OM: Order cancelled - Patient discharged Performed By: #### L 100.0100, L500.2500 ####[facility] [facility] [address] [place], [address] MCH Normal 27.0-32.0 [facility] Comment on above: Result Comment: Canc elled via OM: Order cancelled - Patient discharged Performed By: #### L 100.0100, L500.2500 ####[facility] [address] [place], [address] MCHC Normal 32-36 [facility] Comment on above: Result Comment: Canc elled via OM: Order cancelled - Patient discharged Performed By: #### L 100.0100, L500.2500 ####[facility] [address] [place], [address] MCV Normal 81-99 [facility] Comment on above: Result Comment: Canc elled via OM: Order cancelled - Patient discharged Performed By: #### L 100.0100, L500.2500 ####[facility] [address] [place], [address] NEUT% Normal 47-70 [facility] Comment on above: Result Comment: Canc elled via OM: Order cancelled - Patient discharged Performed By: #### L 100.0100, L500.2500 ####[facility] [address] [place], [address] PLT Normal 150-450 [facility] Comment on above: Result Comment: Canc elled via OM: Order cancelled - Patient discharged Performed By: #### L 100.0100, L500.2500 ####[facility] [address] [place], [address] RBC Normal 4.2-5.4 [facility] Comment on above: Result Comment: Canc elled via OM: Order cancelled - Patient discharged Performed By: #### L 100.0100, L500.2500 ####[facility] [address] [place], [address] RDW CV Normal 11.6-14.6 [facility] Comment on above: Result Comment: Canc elled via OM: Order cancelled - Patient discharged Performed By: #### L 100.0100, L500.2500 ####[facility] [address] [place], [address] RDW SD Normal 35.1-43.9 [facility] Comment on above: Result Comment: Canc elled via OM: Order cancelled - Patient discharged Performed By: #### L 100.0100, L500.2500 ####[facility] [address] [place], [address] WBC Normal 4.4-11.0 [facility] Comment on above: Result Comment: Canc elled via OM: Order cancelled - Patient discharged Performed By: #### L 100.0100, L500.2500 ####[facility] [address] [place], [address] Absolute lymphocyte countOrd ered By: Adele Gusman on 03-23-2025 Lymphocytes Auto (Unsp spec) [#/Vol] 1.22 10*3/uL 0.83-4.51 [facility] Absolute neutrophil countOrd ered By: Adele Gusman on 03-23-2025 Neutrophils (Bld) [#/Vol] 6.8 10*3/uL 2.0-7.7 [facility] Anion gap in Serum or Plasma Ordered By: Adele Gusman on 03-23-2025 Anion gap [Moles/Vol] 10 mmol/L 5-15 [facility] Automated lymphocyte count a s percentage of total leukocytesOrdered By: Adele Gusman on 03-23-2025 Lymphocytes/100 WBC Auto (Unsp spec) 13.5 % Low 19-41 [facility] BUN/creatinine ratioOrdered By: Adele Gusman on 03-23-2025 Urea nitrogen/Creatinine [Mass ratio] 21.5 mg/mg High 10-20 [facility] Basophil percentageOrdered B y: Adele Gusman on 03-23-2025 Basophils/100 WBC (Bld) 0.4 % 0-1 [facility] Bilirubin, totalOrdered By: Adele Gusman on 03-23-2025 Bilirubin [Mass/Vol] 1.28 mg/dL 0.00-1.30 [facility] Carbon dioxide, total [Moles /volume] in Central venous bloodOrdered By: Adele Gusman on 03-23-2025 CO2 [Moles/Vol] 24.4 mmol/L 21.0-32.0 [facility] Chloride assayOrdered By: Jennifer Gusman on 03-23-2025 Chloride [Moles/Vol] 104 mmol/L 98-108 [facility] Eosinophil percentageOrdered By: elsa Gusman on 03-23-2025 Eosinophils/100 WBC (Bld) 1.9 % 0-5 [facility] Erythrocyte distribution wid th ratioOrdered By: Adele Gusman on 03-23-2025 Erythrocyte distribution width (RBC) [Ratio] 15.0 % High 11.6-14.6 [facility] Erythrocyte distribution wid th standard deviationOrdered By: Adlee Gusman on 03-23-2025 Erythrocyte distribution width (RBC) [Ratio] 50.8 fl High 35.1-43.9 [facility] Glomerular filtration rate ( GFR) estimation/1.73 sq m using serum, plasma, or whole bOrdered By: Adele Gusman on 03-23-2025 GFR/1.73 sq M.predicted among non-blacks MDRD (S/P/Bld) [Vol rate/Area] 75 mL/min/{1.73_m2} >60 [facility] Comment on above: mL/min/1.73m2 CKD-EP I Creatinine Equation (2020) Hematocrit Auto (Bld) [Volum e fraction]Ordered By: [facility] on 03-23-2025 Hematocrit (Bld) [Volume fraction] 34.2 % Low 37-47 [facility] Hemoglobin measurementOrdere d By: macariohuntsvillemaxim Gusman on 03-23-2025 Hemoglobin (Bld) [Mass/Vol] 11.6 g/dL Low 12.0-15.0 [facility] Immature granulocytes/100 WB C Auto (Bld)Ordered By: Adele Gusman on 03-23-2025 Immature granulocytes/100 WBC (Bld) 1.100 % High 0.0-0.9 [facility] Comment on above: IG% - Immature Granu locytes (promyelocytes, myelocytes and metamyelocytes) > 1% indicates that a LEFT SHIFT is Present. Laboratory - Chemistry and C hemistry - challengeOrdered By: elsa Gusman on 03-23-2025 AST [Catalytic activity/Vol] 16 U/L <32 [facility] MCV (mean corpuscular volume ) determinationOrdered By: Adele Gusman 03-23-2025 MCV (RBC) [Entitic vol] 91.9 fL 81-99 [facility] Mean corpuscular hemoglobin (MCH) determinationOrdered By: macariohuntsvillemaxim Gusman 03-23-2025 MCH (RBC) [Entitic mass] 31.2 pg 27.0-32.0 [facility] Mean corpuscular hemoglobin concentration (MCHC) determinationOrdered By: Adele Gusman on 03-23-2025 MCHC (RBC) [Mass/Vol] 33.9 g/dL 32-36 [facility] Mean platelet volume determi nationOrdered By: Adele Gusman on 03-23-2025 Platelet mean volume (Bld) [Entitic vol] 10.1 fL 6.2-12.0 [facility] Monocyte percentageOrdered B y: Adele Gusman on 03-23-2025 Monocytes/100 WBC (Bld) 7.8 % 0-10 [facility] Neutrophil percentageOrdered By: Sharlenehuntsvillemaxim Gusman on 03-23-2025 Neutrophils/100 WBC (Bld) 75.3 % High 47-70 [facility] Nucleated red blood cell per centageOrdered By: Sharlenehuntsvillemaxim Gusman on 03-23-2025 Nucleated RBC/100 WBC (Bld) [Ratio] 0 % 0-5 [facility] Platelet countOrdered By: Jennifer macarioaleah Gusman on 03-23-2025 Platelets (Bld) [#/Vol] 241 10*3/uL 150-450 [facility] Potassium measurement (mass/ volume)Ordered By: Adele Gusman on 03-23-2025 Potassium (Unsp spec) [Mass/Vol] 3.5 mmol/L 3.3-5.1 [facility] RBC Auto (Bld) [#/Vol]Ordere d By: Adele Gusman on 03-23-2025 RBC (Bld) [#/Vol] 3.72 10*6/uL Low 4.2-5.4 [facility] Serum creatinine measurement (mass/volume)Ordered By: Adele Gusman on 03-23-2025 Creatinine [Mass/Vol] 0.78 mg/dL 0.70-1.20 [facility] Serum globulin measurementOr dered By: Adele Gusman on 03-23-2025 Globulin (S) [Mass/Vol] 2.3 g/dL 2.2-4.2 [facility] Serum glucose measurement (m ass/volume)Ordered By: Adele Gusman on 03-23-2025 Glucose [Mass/Vol] 95 mg/dL 70-99 [facility] Serum or plasma alanine tillman otransferase (ALT) measurementOrdered By: Adele Gusman on 03-23-2025 ALT [Catalytic activity/Vol] 6 U/L <35 [facility] Serum or plasma albumin thomas urement (mass/volume)Ordered By: Adele Gusman on 03-23-2025 Albumin [Mass/Vol] 3.5 g/dL 3.4-4.8 [facility] Serum or plasma albumin/glob ulin mass ratioOrdered By: Adele Gusman on 03-23-2025 Albumin/Globulin [Mass ratio] 1.5 {ratio} 0.9-2.4 [facility] Serum or plasma alkaline mariah sphatase measurementOrdered By: Adele Gusman 03-23-2025 ALP [Catalytic activity/Vol] 135 U/L High 35-104 [facility] Serum or plasma calcium thomas urement (mass/volume)Ordered By: Adele Gusman 03-23-2025 Calcium [Mass/Vol] 9.0 mg/dL 7.6-11.0 [facility] Serum or plasma urea nitroge n measurement (mass/volume)Ordered By: Adele Gusman 03-23-2025 Urea nitrogen [Mass/Vol] 17 mg/dL 4-19 [facility] Sodium levelOrdered By: Sharlene Gusman on 03-23-2025 Sodium [Moles/Vol] 139 mmol/L 133-145 [facility] Total proteinOrdered By: Amadou Gusman on 03-23-2025 Protein [Mass/Vol] 5.8 g/dL Low 5.9-8.4 [facility] White blood cell (WBC) count Ordered By: Adele Gusman on 03-23-2025 WBC (Bld) [#/Vol] 9.1 10*3/uL 4.4-11.0 [facility] Absolute lymphocyte countOrd ered By: Garfield Srinath on 03-19-2025 Lymphocytes Auto (Unsp spec) [#/Vol] 1.65 10*3/uL 0.83-4.51 [facility] Absolute neutrophil countOrd ered By: Garfield Srinath on 03-19-2025 Neutrophils (Bld) [#/Vol] 5.7 10*3/uL 2.0-7.7 [facility] Anion gap in Serum or Plasma Ordered By: Garfield Yo on 03-19-2025 Anion gap [Moles/Vol] 7 mmol/L 04-02 [facility] Automated lymphocyte count a s percentage of total leukocytesOrdered By: Garfield Srinath on 03-19-2025 Lymphocytes/100 WBC Auto (Unsp spec) 19.7 % [facility] BUN/creatinine ratioOrdered By: Garfield Yo on 03-19-2025 Urea nitrogen/Creatinine [Mass ratio] 17.9 mg/mg 09-07 [facility] Basic Metabolic Profile (BMP )on 03-19-2025 BUN/CRE 17.9 RATIO Normal - [facility] Comment on above: Performed By: #### L 100.0100, L500.2500 ####[facility] [address] [place], [address] Calcium [Mass/Vol] 8.8 mg/dL Normal 7.6-11.0 [facility] Comment on above: Performed By: #### L 100.0100, L500.2500 ####[facility] [address] [place], [address] Chloride [Moles/Vol] 107 mmol/L Normal 98-108 [facility] Comment on above: Performed By: #### L 100.0100, L500.2500 ####[facility] [address] [place], [address] CO2 [Moles/Vol] 26.6 mmol/L Normal 21.0-32.0 [facility] Comment on above: Performed By: #### L 100.0100, L500.2500 ####[facility] [address] [place], [address] Creatinine [Mass/Vol] 1.02 mg/dL Normal 0.70-1.20 [facility] Comment on above: Performed By: #### L 100.0100, L500.2500 ####[facility] [address] [place], [address] ECRCL 32.95 ml/min Low 50-250 [facility] Comment on above: Performed By: #### L 100.0100, L500.2500 ####[facility] [address] [place], [address] GAP 7 Normal 5-15 [facility] Comment on above: Performed By: #### L 100.0100, L500.2500 ####[facility] [address] [place], [address] GFR/1.73 sq M.predicted among non-blacks MDRD (S/P/Bld) [Vol rate/Area] 54 mL/min/{1.73_m2} Low >60 [facility] Comment on above: Result Comment: mL/m in/1.73m2 CKD-EPI Creatinine Equation (2020) Performed By: #### L 100.0100, L500.2500 ####[facility] [address] [place], [address] Glucose [Mass/Vol] 92 mg/dL Normal 70-99 [facility] Comment on above: Performed By: #### L 100.0100, L500.2500 ####[facility] [address] [place], [address] Potassium [Moles/Vol] 4.1 mmol/L Normal 3.3-5.1 [facility] Comment on above: Result Comment: Hemo lysis present, Results??could be affected. ?? Performed By: #### L 100.0100, L500.2500 ####[facility] [address] [place], [address] Sodium [Moles/Vol] 141 mmol/L Normal 133-145 [facility] Comment on above: Performed By: #### L 100.0100, L500.2500 ####[facility] [address] [place], [address] Urea nitrogen [Mass/Vol] 18 mg/dL Normal 4-19 [facility] Comment on above: Performed By: #### L 100.0100, L500.2500 ####[facility] [address] [place], [address] Basophil percentageOrdered B y: Garfield Yo on 03-19-2025 Basophils/100 WBC (Bld) 0.6 % 0-1 [facility] CBC W/Diff, Automatedon Absolute Lymph 1.65 X10 3/uL Normal 0.83-4.51 [facility] Comment on above: Performed By: #### L 100.0100, L500.2500 ####[facility] [address] [place], [address] Absolute Neut 5.7 X10 3/uL Normal 2.0-7.7 [facility] Comment on above: Performed By: #### L 100.0100, L500.2500 ####[facility] [address] [place], [address] Basophils/100 WBC (Bld) 0.6 % Normal 0-1 [facility] Comment on above: Performed By: #### L 100.0100, L500.2500 ####[facility] [address] [place], [address] Eosinophils/100 WBC (Bld) 2.1 % Normal 0-5 [facility] Comment on above: Performed By: #### L 100.0100, L500.2500 ####[facility] [address] [place], [address] Erythrocyte distribution width (RBC) [Ratio] 15.7 % High 11.6-14.6 [facility] Comment on above: Performed By: #### L 100.0100, L500.2500 ####[facility] [address] [place], [address] Hematocrit (Bld) [Volume fraction] 30.9 % Low 37-47 [facility] Comment on above: Performed By: #### L 100.0100, L500.2500 ####[facility] [address] [place], [address] Hemoglobin (Bld) [Mass/Vol] 10.4 g/dL Low 12.0-15.0 [facility] Comment on above: Performed By: #### L 100.0100, L500.2500 ####[facility] [address] [place], [address] IG% 1.600 High 0.0-0.9 [facility] Comment on above: Result Comment: IG% - Immature Granulocytes (promyelocytes, myelocytes and metamyelocytes) > 1% indicates that a LEFT SHIFT is Present. Performed By: #### L 100.0100, L500.2500 ####[facility] [address] [place], [address] Lymphocytes/100 WBC (Bld) 19.7 % Normal 19-41 [facility] Comment on above: Performed By: #### L 100.0100, L500.2500 ####[facility] [address] [place], [address] MCH (RBC) [Entitic mass] 31.3 pg Normal 27.0-32.0 [facility] Comment on above: Performed By: #### L 100.0100, L500.2500 ####[facility] [address] [place], [address] MCHC (RBC) [Mass/Vol] 33.7 g/dL Normal 32-36 [facility] Comment on above: Performed By: #### L 100.0100, L500.2500 ####[facility] [address] [place], [address] MCV (RBC) [Entitic vol] 93.1 fL Normal 81-99 [facility] Comment on above: Performed By: #### L 100.0100, L500.2500 ####[facility] [address] [place], [address] Monocytes/100 WBC (Bld) 8.5 % Normal 0-10 [facility] Comment on above: Performed By: #### L 100.0100, L500.2500 ####[facility] [address] [place], [address] Neutrophils/100 WBC (Bld) 67.5 % Normal 47-70 [facility] Comment on above: Performed By: #### L 100.0100, L500.2500 ####[facility] [address] [place], [address] Nucleated RBC (Bld) [#/Vol] 0 10*3/uL Normal 0-5 [facility] Comment on above: Performed By: #### L 100.0100, L500.2500 ####[facility] [address] [place], [address] Platelet mean volume (Bld) [Entitic vol] 9.1 fL Normal 6.2-12.0 [facility] Comment on above: Performed By: #### L 100.0100, L500.2500 ####[facility] [address] [place], [address] Platelets (Bld) [#/Vol] 262 10*3/uL Normal 150-450 [facility] Comment on above: Performed By: #### L 100.0100, L500.2500 ####[facility] [address] [place], [address] RBC (Bld) [#/Vol] 3.32 10*6/uL Low 4.2-5.4 [facility] Comment on above: Performed By: #### L 100.0100, L500.2500 ####[facility] [address] [place], [address] RDW SD 53.2 fl High 35.1-43.9 [facility] Comment on above: Performed By: #### L 100.0100, L500.2500 ####[facility] [address] [place], [address] WBC (Bld) [#/Vol] 8.4 10*3/uL Normal 4.4-11.0 [facility] Comment on above: Performed By: #### L 100.0100, L500.2500 ####[facility] [address] [place], [address] [facility] MICHAELA BRANDT ([id number]) 1940 F Date Time Provider Department 03/19/25 KENTRELL MONTGOMERY During your visit today, we recorded the following information about you: Kentrell Montgomery, [employer]PPLY AND DISTRIBUTION MANAGER 03/19/2025 3:34 PM Signed Sw spoke with patient daughter Maribeth. Maribeth notes that patient is currently at [facility] right now. Transitioned there today. Maribeth notes that she needs to cancel patient appt with Dr. Santiago tomorrow. Thomas notes that she will send message to Dr. Santiago regarding this need. Maribeth also noted that she is going to send My Chart message as well in regards to cancelling appt. Maribeth notes that the hospital Sw had encouraged patient to go to [facility] for further care after being in [facility]. Daughter is trying to get with admissions at [facility] in regards to them saying that she is going there for 30 days and being placed in LTC and not Rehab. Daughter also notes that she has an appt next week with [facility] for financial planning. Maribeth also noted that she would like patient to see Dr. Santiago if and when she leaves [facility]. While in [facility], patient will be followed by their provider. Sw did encourage patient daughter to also reach out to [facility] and [facility] for further support guidance regarding LTC planning. Sw will forward note to Dr. Santiago and her office in regards to appt cancellation need for tomorrow. Mckenzie Lombardo LPN 03/19/2025 4:00 PM Signed Canceled appointment for tomorrow per patients daughter request. Mckenzie Lombardo LPN March 19, 2025 4:00 PM Dillan Santiago MD 03/19/2025 4:55 PM Signed Thanks and noted Regards, Kentrell Herrera MD, SUPPLY AND DISTRIBUTION MANAGER 03/20/2025 3:12 PM Signed Maribeth reached out to in regards to question about patient seeing [facility] provider and liking to keep Dr. Santiago. Maribeth notes that she feels like patient plan at this time will be to stay at [facility] for 30 days. Maribeth and this Sw discussed speaking with [facility] admissions and in regards to consent to sign for them to share info with Dr. Santiago. Maribeth notes that she is going to try and speak with admissions today as she wants to see what happened with patient transitioning to rehab services instead of LTC. Maribeth notes that she still has appt next week with [facility] as well. Maribeth notes that she is also going to check with SW at [facility] in regards to counselor option for patient. This Sw is not aware of counseling service that provides mental health services at [facility]. Daughter notes that she will ask about mental health treatment options there at [facility]. Daughter is concerned about patient being depressed and wanting to obtain support for patient while in LTC. Maribeth has this Sw direct number for any further needs. Maribeth states that she also plans on reaching out to [facility], today as well for questions regarding other LTC if patient should need to look at living in a LTC indefinitely. Dillan Santiaog MD 03/20/2025 5:20 PM Signed Yes, I [...] Encounter Status:Closed by GABI MCELROY on 03/19/25 [facility] Carbon dioxide, total [Moles /volume] in Central venous bloodOrdered By: Garfield Yo on 03-19-2025 CO2 [Moles/Vol] 26.6 mmol/L 21.0-32.0 [facility] Chloride assayOrdered By: Kristopher Yo on 03-19-2025 Chloride [Moles/Vol] 107 mmol/L 98-108 [facility] Eosinophil percentageOrdered By: Garfield Yo on 03-19-2025 Eosinophils/100 WBC (Bld) 2.1 % 0-5 [facility] Erythrocyte distribution wid th ratioOrdered By: Garfield Yo on 03-19-2025 Erythrocyte distribution width (RBC) [Ratio] 15.7 % High 11.6-14.6 [facility] Erythrocyte distribution wid th standard deviationOrdered By: [facility] on 03-19-2025 Erythrocyte distribution width (RBC) [Ratio] 53.2 fl High 35.1-43.9 [facility] Glomerular filtration rate ( GFR) estimation/1.73 sq m using serum, plasma, or whole bOrdered By: [facility] Hospital[facility] on 03-19-2025 GFR/1.73 sq M.predicted among non-blacks MDRD (S/P/Bld) [Vol rate/Area] 54 mL/min/{1.73_m2} Low >60 [facility] Comment on above: mL/min/1.73m2 CKD-EP I Creatinine Equation (2020) Hematocrit Auto (Bld) [Volum e fraction]Ordered By: [facility] 03-19-2025 Hematocrit (Bld) [Volume fraction] 30.9 % Low 37-47 [facility] Hemoglobin measurementOrdere d By: Garfield Srinath 03-19-2025 Hemoglobin (Bld) [Mass/Vol] 10.4 g/dL Low 12.0-15.0 [facility] Immature granulocytes/100 WB C Auto (Bld)Ordered By: Garfield Yo 03-19-2025 Immature granulocytes/100 WBC (Bld) 1.600 % High 0.0-0.9 [facility] Comment on above: IG% - Immature Granu locytes (promyelocytes, myelocytes and metamyelocytes) > 1% indicates that a LEFT SHIFT is Present. MCV (mean corpuscular volume ) determinationOrdered By: Garfield Yo 03-19-2025 MCV (RBC) [Entitic vol] 93.1 fL 81-99 [facility] Mean corpuscular hemoglobin (MCH) determinationOrdered By: Garfield Srinath 03-19-2025 MCH (RBC) [Entitic mass] 31.3 pg 27.0-32.0 [facility] Mean corpuscular hemoglobin concentration (MCHC) determinationOrdered By: Garfield Srinath 03-19-2025 MCHC (RBC) [Mass/Vol] 33.7 g/dL 32-36 [facility] Mean platelet volume determi nationOrdered By: Garfield Yo on 03-19-2025 Platelet mean volume (Bld) [Entitic vol] 9.1 fL 6.2-12.0 [facility] Monocyte percentageOrdered B y: Garfield Yo on 03-19-2025 Monocytes/100 WBC (Bld) 8.5 % 0-10 [facility] Neutrophil percentageOrdered By: Garfield Yo on 03-19-2025 Neutrophils/100 WBC (Bld) 67.5 % 47-70 [facility] [facility] Nucleated red blood cell per centageOrdered By: Garfield Yo on 03-19-2025 Nucleated RBC/100 WBC (Bld) [Ratio] 0 % 0-5 [facility] Platelet countOrdered By: Kristopher Yo on 03-19-2025 Platelets (Bld) [#/Vol] 262 10*3/uL 150-450 [facility] Potassium measurement (mass/ volume)Ordered By: Garfield Yo on 03-19-2025 Potassium (Unsp spec) [Mass/Vol] 4.1 mmol/L 3.3-5.1 [facility] Comment on above: Hemolysis present, R esults could be affected. RBC Auto (Bld) [#/Vol]Ordere d By: Garfield Yo on 03-19-2025 RBC (Bld) [#/Vol] 3.32 10*6/uL Low 4.2-5.4 [facility] Serum creatinine measurement (mass/volume)Ordered By: Garfield Yo on 03-19-2025 Creatinine [Mass/Vol] 1.02 mg/dL 0.70-1.20 [facility] Serum glucose measurement (m ass/volume)Ordered By: Garfield Yo on 03-19-2025 Glucose [Mass/Vol] 92 mg/dL 70-99 [facility] Serum or plasma calcium thomas urement (mass/volume)Ordered By: Garfield Yo on 03-19-2025 Calcium [Mass/Vol] 8.8 mg/dL 7.6-11.0 [facility] Serum or plasma urea nitroge n measurement (mass/volume)Ordered By: Garfield Yo on 03-19-2025 Urea nitrogen [Mass/Vol] 18 mg/dL 4-19 [facility] Sodium levelOrdered By: Garfield Yo on 03-19-2025 Sodium [Moles/Vol] 141 mmol/L 133-145 [facility] White blood cell (WBC) count Ordered By: Garfield Yo on 03-19-2025 WBC (Bld) [#/Vol] 8.4 10*3/uL 4.4-11.0 [facility] Basic Metabolic Profile (BMP )on 03-12-2025 BUN/CRE 19.2 RATIO Normal 10-20 [facility] Comment on above: Performed By: #### L 100.0100, L500.2500 ####[facility] [address] [place], [address] Calcium [Mass/Vol] 8.6 mg/dL Normal 7.6-11.0 [facility] Comment on above: Performed By: #### L 100.0100, L500.2500 ####[facility] [address] [place], [address] Chloride [Moles/Vol] 105 mmol/L Normal 98-108 [facility] Comment on above: Performed By: #### L 100.0100, L500.2500 ####[facility] [address] [place], [address] CO2 [Moles/Vol] 26.6 mmol/L Normal 21.0-32.0 [facility] Comment on above: Performed By: #### L 100.0100, L500.2500 ####[facility] [address] [place], [address] Creatinine [Mass/Vol] 0.80 mg/dL Normal 0.70-1.20 [facility] Comment on above: Performed By: #### L 100.0100, L500.2500 ####[facility] [address] [place], [address] ECRCL 42.05 ml/min Low 50-250 [facility] Comment on above: Performed By: #### L 100.0100, L500.2500 ####[facility] [address] [place], [address] GAP 9 Normal 5-15 [facility] Comment on above: Performed By: #### L 100.0100, L500.2500 ####[facility] [address] [place], [address] GFR/1.73 sq M.predicted among non-blacks MDRD (S/P/Bld) [Vol rate/Area] 73 mL/min/{1.73_m2} Normal >60 [facility] Comment on above: Result Comment: mL/m in/1.73m2 CKD-EPI Creatinine Equation (2020) Performed By: #### L 100.0100, L500.2500 ####[facility] [address] [place], [address] Glucose [Mass/Vol] 90 mg/dL Normal 70-99 [facility] Comment on above: Performed By: #### L 100.0100, L500.2500 ####[facility] [address] [place], [address] Potassium [Moles/Vol] 3.9 mmol/L Normal 3.3-5.1 [facility] Comment on above: Result Comment: Hemo lysis present, Results??could be affected. ?? Performed By: #### L 100.0100, L500.2500 ####[facility] [address] [place], [address] Sodium [Moles/Vol] 140 mmol/L Normal 133-145 [facility] Comment on above: Performed By: #### L 100.0100, L500.2500 ####[facility] [address] [place], [address] Urea nitrogen [Mass/Vol] 15 mg/dL Normal 4-19 [facility] Comment on above: Performed By: #### L 100.0100, L500.2500 ####[facility] [address] [place], [address] CBC W/Diff, Automatedon 02-18 Absolute Lymph 1.55 X10 3/uL Normal 0.83-4.51 [facility] Comment on above: Performed By: #### L 100.0100, L500.2500 ####[facility] [address] [place], [address] Absolute Neut 7.8 X10 3/uL High 2.0-7.7 [facility] Comment on above: Performed By: #### L 100.0100, L500.2500 ####[facility] [address] [place], [address] Basophils/100 WBC (Bld) 0.9 % Normal 0-1 [facility] Comment on above: Performed By: #### L 100.0100, L500.2500 ####[facility] [address] [place], [address] Eosinophils/100 WBC (Bld) 2.5 % Normal 0-5 [facility] Comment on above: Performed By: #### L 100.0100, L500.2500 ####[facility] [address] [place], [address] Erythrocyte distribution width (RBC) [Ratio] 16.0 % High 11.6-14.6 [facility] Comment on above: Performed By: #### L 100.0100, L500.2500 ####[facility] [address] [place], [address] Hematocrit (Bld) [Volume fraction] 28.8 % Low 37-47 [facility] Comment on above: Performed By: #### L 100.0100, L500.2500 ####[facility] [address] [place], [address] Hemoglobin (Bld) [Mass/Vol] 9.5 g/dL Low 12.0-15.0 [facility] Comment on above: Performed By: #### L 100.0100, L500.2500 ####[facility] [address] [place], [address] IG% 2.000 High 0.0-0.9 [facility] Comment on above: Result Comment: IG% - Immature Granulocytes (promyelocytes, myelocytes and metamyelocytes) > 1% indicates that a LEFT SHIFT is Present. Performed By: #### L 100.0100, L500.2500 ####[facility] [address] [place], [address] Lymphocytes/100 WBC (Bld) 14.7 % Low 19-41 [facility] Comment on above: Performed By: #### L 100.0100, L500.2500 ####[facility] [address] [place], [address] MCH (RBC) [Entitic mass] 30.7 pg Normal 27.0-32.0 [facility] Comment on above: Performed By: #### L 100.0100, L500.2500 ####[facility] [address] [place], [address] MCHC (RBC) [Mass/Vol] 33.0 g/dL Normal 32-36 [facility] Comment on above: Performed By: #### L 100.0100, L500.2500 ####[facility] [address] [place], [address] MCV (RBC) [Entitic vol] 93.2 fL Normal 81-99 [facility] Comment on above: Performed By: #### L 100.0100, L500.2500 ####[facility] [address] [place], [address] Monocytes/100 WBC (Bld) 5.9 % Normal 0-10 [facility] Comment on above: Performed By: #### L 100.0100, L500.2500 ####[facility] [address] [place], [address] Neutrophils/100 WBC (Bld) 74.0 % High 47-70 [facility] Comment on above: Performed By: #### L 100.0100, L500.2500 ####[facility] [address] [place], [address] Nucleated RBC (Bld) [#/Vol] 0 10*3/uL Normal 0-5 [facility] Comment on above: Performed By: #### L 100.0100, L500.2500 ####[facility] [address] [place], [address] Platelet mean volume (Bld) [Entitic vol] 9.4 fL Normal 6.2-12.0 [facility] Comment on above: Performed By: #### L 100.0100, L500.2500 ####[facility] [address] [place], [address] Platelets (Bld) [#/Vol] 312 10*3/uL Normal 150-450 [facility] Comment on above: Performed By: #### L 100.0100, L500.2500 ####[facility] [address] [place], [address] RBC (Bld) [#/Vol] 3.09 10*6/uL Low 4.2-5.4 [facility] Comment on above: Performed By: #### L 100.0100, L500.2500 ####[facility] [address] [place], [address] RDW SD 52.6 fl High 35.1-43.9 [facility] Comment on above: Performed By: #### L 100.0100, L500.2500 ####[facility] [address] [place], [address] WBC (Bld) [#/Vol] 10.6 10*3/uL Normal 4.4-11.0 [facility] Comment on above: Performed By: #### L 100.0100, L500.2500 ####[facility] [address] [place], [place], [id number] Chest PA and Lateralon 03-11 Chest PA and Lateral [facility] [address] [place], [place] [address] Chest PA and Lateral MR#: [id number] Acct: [id number] Name: MICHAELA BRANDT Rep #: [id number] : 1940 F 84 From: Greg cooper MD PCP: Dr. Dillan Santiago MD Status: ADM IN Study: Chest PA and Lateral Date of Exam: 03/11/25 Exam# [id number] Ordering Dr: Garfield Yo MD PROCEDURE: CHEST [...] changes. 3. Unchanged mild cardiomegaly. Reading Location: [place] [address] CC: Dr. Dillan Santiago MD; Dr. Garfield Yo MD Bulk Mail Clerk: Signed Normal [facility] Basic Metabolic Profile (BMP )on 03-10-2025 BUN Normal 4- [facility] Comment on above: Result Comment: Canc elled via OM: Order cancelled - Patient discharged Performed By: #### L 500.2500, L100.0100 ####[facility] [address] [place], [address] BUN/CRE Normal 10-20 [facility] Comment on above: Result Comment: Canc elled via OM: Order cancelled - Patient discharged Performed By: #### L 500.2500, L100.0100 ####[facility] [address] [place], [address] Calcium Normal 7.6-11.0 [facility] Comment on above: Result Comment: Canc elled via OM: Order cancelled - Patient discharged Performed By: #### L 500.2500, L100.0100 ####[facility] [address] [place], [address] CL Normal 98-108 [facility] Comment on above: Result Comment: Canc elled via OM: Order cancelled - Patient discharged Performed By: #### L 500.2500, L100.0100 ####[facility] [address] [place], [address] CO2 Normal 21.0-32.0 [facility] Comment on above: Result Comment: Canc elled via OM: Order cancelled - Patient discharged Performed By: #### L 500.2500, L100.0100 ####[facility] [address] [place], [address] CREAT,SERUM Normal 0.70-1.20 [facility] Comment on above: Result Comment: Canc elled via OM: Order cancelled - Patient discharged Performed By: #### L 500.2500, L100.0100 ####[facility] [address] [place], [address] eGFR Normal >60 [facility] Comment on above: Result Comment: Canc elled via OM: Order cancelled - Patient discharged Performed By: #### L 500.2500, L100.0100 ####[facility] [address] [place], [address] GAP Normal 5-15 [facility] Comment on above: Result Comment: Canc elled via OM: Order cancelled - Patient discharged Performed By: #### L 500.2500, L100.0100 ####[facility] [address], [address] GLU Normal 70-99 [facility] Comment on above: Result Comment: Canc elled via OM: Order cancelled - Patient discharged Performed By: #### L 500.2500, L100.0100 ####[facility] [address] [place], [address] Potassium Normal 3.3-5.1 [facility] Comment on above: Result Comment: Canc elled via OM: Order cancelled - Patient discharged Performed By: #### L 500.2500, L100.0100 ####[facility] [address] [place], [address] Basic Metabolic Profile (BMP) Normal 133-145 [facility] Comment on above: Result Comment: Canc elled via OM: Order cancelled - Patient discharged Performed By: #### L 500.2500, L100.0100 ####[facility] [address] [place], [address] CBC W/Diff, Automatedon 04-2 Absolute Neut Normal 2.0-7.7 [facility] Comment on above: Result Comment: Canc elled via OM: Order cancelled - Patient discharged Performed By: #### L 500.2500, L100.0100 ####[facility] [address] [place], [address] HCT Normal 37-47 [facility] Comment on above: Result Comment: Canc elled via OM: Order cancelled - Patient discharged Performed By: #### L 500.2500, L100.0100 ####[facility] [address] [place], [address] HGB Normal 12.0-15.0 [facility] Comment on above: Result Comment: Canc elled via OM: Order cancelled - Patient discharged Performed By: #### L 500.2500, L100.0100 ####[facility] [address] [place], [address] MCH Normal 27.0-32.0 [facility] Comment on above: Result Comment: Canc elled via OM: Order cancelled - Patient discharged Performed By: #### L 500.2500, L100.0100 ####[facility] [address] [place], [address] MCHC Normal 32-36 [facility] Comment on above: Result Comment: Canc elled via OM: Order cancelled - Patient discharged Performed By: #### L 500.2500, L100.0100 ####[facility] [address] [place], [address] MCV Normal 81-99 [facility] Comment on above: Result Comment: Canc elled via OM: Order cancelled - Patient discharged Performed By: #### L 500.2500, L100.0100 ####[facility] [address] [place], [address] NEUT% Normal 47-70 [facility] Comment on above: Result Comment: Canc elled via OM: Order cancelled - Patient discharged Performed By: #### L 500.2500, L100.0100 ####[facility] [address] [place], [address] PLT Normal 150-450 [facility] Comment on above: Result Comment: Canc elled via OM: Order cancelled - Patient discharged Performed By: #### L 500.2500, L100.0100 ####[facility] [address] [place], [address] RBC Normal 4.2-5.4 [facility] Comment on above: Result Comment: Canc elled via OM: Order cancelled - Patient discharged Performed By: #### L 500.2500, L100.0100 ####[facility] [address] [place], [address] RDW CV Normal 11.6-14.6 [facility] Comment on above: Result Comment: Canc elled via OM: Order cancelled - Patient discharged Performed By: #### L 500.2500, L100.0100 ####[facility] [address] [place], [address] RDW SD Normal 35.1-43.9 [facility] Comment on above: Result Comment: Canc elled via OM: Order cancelled - Patient discharged Performed By: #### L 500.2500, L100.0100 ####[facility] [address] [place], [address] WBC Normal 4.4-11.0 [facility] Comment on above: Result Comment: Canc elled via OM: Order cancelled - Patient discharged Performed By: #### L 500.2500, L100.0100 ####[facility] [address] [place], [address] Basic Metabolic Profile (BMP )on 03-09-2025 BUN Normal 4-19 [facility] Comment on above: Result Comment: Canc elled via OM: Order cancelled - Patient discharged Performed By: #### L 500.2500, L100.0100 ####[facility] [address] [place], [address] BUN/CRE Normal 10-20 [facility] Comment on above: Result Comment: Canc elled via OM: Order cancelled - Patient discharged Performed By: #### L 500.2500, L100.0100 ####[facility] [address] [place], [address] Calcium Normal 7.6-11.0 [facility] Comment on above: Result Comment: Canc elled via OM: Order cancelled - Patient discharged Performed By: #### L 500.2500, L100.0100 ####[facility] [address] [place], [address] CL Normal 98-108 [facility] Comment on above: Result Comment: Canc elled via OM: Order cancelled - Patient discharged Performed By: #### L 500.2500, L100.0100 ####[facility] [address] [place], [address] CO2 Normal 21.0-32.0 [facility] Comment on above: Result Comment: Canc elled via OM: Order cancelled - Patient discharged Performed By: #### L 500.2500, L100.0100 ####[facility] [address] [place], [address] CREAT,SERUM Normal 0.70-1.20 [facility] Comment on above: Result Comment: Canc elled via OM: Order cancelled - Patient discharged Performed By: #### L 500.2500, L100.0100 ####[facility] [address] [place], [address] eGFR Normal >60 [facility] Comment on above: Result Comment: Canc elled via OM: Order cancelled - Patient discharged Performed By: #### L 500.2500, L100.0100 ####[facility] [address] [place], [address] GAP Normal 5-15 [facility] Comment on above: Result Comment: Canc elled via OM: Order cancelled - Patient discharged Performed By: #### L 500.2500, L100.0100 ####[facility] [address] [place], [address] GLU Normal 70-99 [facility] Comment on above: Result Comment: Canc elled via OM: Order cancelled - Patient discharged Performed By: #### L 500.2500, L100.0100 ####[facility] [address] [place], [address] Potassium Normal 3.3-5.1 [facility] Comment on above: Result Comment: Canc elled via OM: Order cancelled - Patient discharged Performed By: #### L 500.2500, L100.0100 ####[facility] [address] [place], [address] Basic Metabolic Profile (BMP) Normal 133-145 [facility] Comment on above: Result Comment: Canc elled via OM: Order cancelled - Patient discharged Performed By: #### L 500.2500, L100.0100 ####[facility] [address] [place], [address] CBC W/Diff, Automatedon 04-2 Absolute Neut Normal 2.0-7.7 [facility] Comment on above: Result Comment: Canc elled via OM: Order cancelled - Patient discharged Performed By: #### L 500.2500, L100.0100 ####[facility] [address] [place], [address] HCT Normal 37-47 [facility] Comment on above: Result Comment: Canc elled via OM: Order cancelled - Patient discharged Performed By: #### L 500.2500, L100.0100 ####[facility] [address] [place], [address] HGB Normal 12.0-15.0 [facility] Comment on above: Result Comment: Canc elled via OM: Order cancelled - Patient discharged Performed By: #### L 500.2500, L100.0100 ####[facility] [address] [place], [address] MCH Normal 27.0-32.0 [facility] Comment on above: Result Comment: Canc elled via OM: Order cancelled - Patient discharged Performed By: #### L 500.2500, L100.0100 ####[facility] [address] [place], [address] MCHC Normal 32-36 [facility] Comment on above: Result Comment: Canc elled via OM: Order cancelled - Patient discharged Performed By: #### L 500.2500, L100.0100 ####[facility] [address] [place], [address] MCV Normal 81-99 [facility] Comment on above: Result Comment: Canc elled via OM: Order cancelled - Patient discharged Performed By: #### L 500.2500, L100.0100 ####[facility] [address] [place], [address] NEUT% Normal 47-70 [facility] Comment on above: Result Comment: Canc elled via OM: Order cancelled - Patient discharged Performed By: #### L 500.2500, L100.0100 ####[facility] [address] [place], [address] PLT Normal 150-450 [facility] Comment on above: Result Comment: Canc elled via OM: Order cancelled - Patient discharged Performed By: #### L 500.2500, L100.0100 ####[facility] [address] [place], [address] RBC Normal 4.2-5.4 [facility] Comment on above: Result Comment: Canc elled via OM: Order cancelled - Patient discharged Performed By: #### L 500.2500, L100.0100 ####[facility] [address] [place], [address] RDW CV Normal 11.6-14.6 [facility] Comment on above: Result Comment: Canc elled via OM: Order cancelled - Patient discharged Performed By: #### L 500.2500, L100.0100 ####[facility] [address] [place], [address] RDW SD Normal 35.1-43.9 [facility] Comment on above: Result Comment: Canc elled via OM: Order cancelled - Patient discharged Performed By: #### L 500.2500, L100.0100 ####[facility] [address] [place], [address] WBC Normal 4.4-11.0 [facility] Comment on above: Result Comment: Canc elled via OM: Order cancelled - Patient discharged Performed By: #### L 500.2500, L100.0100 ####[facility] [address] [place], [address] Venous Duplex US, Unilateral on 03-09-2025 Venous Duplex US, Unilateral [facility] [address] 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 PTV is compressible. Acute deep vein thrombosis [...] MD Date Dictated: 03/09/25920 Date Transcribed: 03/09/251849 Bulk Mail Clerk: Signed Normal [facility] Venous duplex ultrasound rep ortOrdered By: Vadim Estrada on 03-09-2025 US Vein [facility] [address] 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 PTV is compressible. Acute deep vein thrombosis is noted in the Per V. It is dilated andNONCOMPRESSIBLE. VL/Venous Duplex US, Unilateral Interpretation Summary Acute deep vein thrombosis is noted in the left peroneal vein. Ordering Physician: Garfield Yo Chi Referring Physician: iDllan Santiago Performed By: Raul Katz RVT 03/09/251849 Date _ Vadim Estrada MD CC: Dr. Dillan Santiago MD; Dr. Garfield Yo MD ~ Date Dictated: 03/09/25920 Date Transcribed: 03/09/251849 Bulk Mail Clerk: Signed [facility] Work Phone: Basic Metabolic Profile (BMP )on 03-08-2025 BUN Normal 03-07 [facility] Comment on above: Result Comment: Canc elled via OM: Order cancelled - Patient discharged Performed By: #### L 100.0100, L500.2500 ####[facility] [address] [place], [address] BUN/CRE Normal 09-07 [facility] Comment on above: Result Comment: Canc elled via OM: Order cancelled - Patient discharged Performed By: #### L 100.0100, L500.2500 ####[facility] [address] [place], [address] Calcium Normal 7.6-11.0 [facility] Comment on above: Result Comment: Canc elled via OM: Order cancelled - Patient discharged Performed By: #### L 100.0100, L500.2500 ####[facility] [address] [place], [address] CL Normal 98-108 [facility] Comment on above: Result Comment: Canc elled via OM: Order cancelled - Patient discharged Performed By: #### L 100.0100, L500.2500 ####[facility] [address] [place], [address] CO2 Normal 21.0-32.0 [facility] Comment on above: Result Comment: Canc elled via OM: Order cancelled - Patient discharged Performed By: #### L 100.0100, L500.2500 ####[facility] [address] [place], [address] CREAT,SERUM Normal 0.70-1.20 [facility] Comment on above: Result Comment: Canc elled via OM: Order cancelled - Patient discharged Performed By: #### L 100.0100, L500.2500 ####[facility] [address] [place], [address] eGFR Normal >60 [facility] Comment on above: Result Comment: Canc elled via OM: Order cancelled - Patient discharged Performed By: #### L 100.0100, L500.2500 ####[facility] [address] [place], [address] GAP Normal 5-15 [facility] Comment on above: Result Comment: Canc elled via OM: Order cancelled - Patient discharged Performed By: #### L 100.0100, L500.2500 ####[facility] [address] [place], [address] GLU Normal 70-99 [facility] Comment on above: Result Comment: Canc elled via OM: Order cancelled - Patient discharged Performed By: #### L 100.0100, L500.2500 ####[facility] [address] [place], [address] Potassium Normal 3.3-5.1 [facility] Comment on above: Result Comment: Canc elled via OM: Order cancelled - Patient discharged Performed By: #### L 100.0100, L500.2500 ####[facility] [address] [place], [address] Basic Metabolic Profile (BMP) Normal 133-145 [facility] Comment on above: Result Comment: Canc elled via OM: Order cancelled - Patient discharged Performed By: #### L 100.0100, L500.2500 ####[facility] [address] [place], [address] CBC W/Diff, Automatedon 04-2 0-2024 Absolute Neut Normal 2.0-7.7 [facility] Comment on above: Result Comment: Canc elled via OM: Order cancelled - Patient discharged Performed By: #### L 100.0100, L500.2500 ####[facility] [address] [place], [address] HCT Normal 37-47 [facility] Comment on above: Result Comment: Canc elled via OM: Order cancelled - Patient discharged Performed By: #### L 100.0100, L500.2500 ####[facility] [address] [place], [address] HGB Normal 12.0-15.0 [facility] Comment on above: Result Comment: Canc elled via OM: Order cancelled - Patient discharged Performed By: #### L 100.0100, L500.2500 ####[facility] [address] [place], [address] MCH Normal 27.0-32.0 [facility] Comment on above: Result Comment: Canc elled via OM: Order cancelled - Patient discharged Performed By: #### L 100.0100, L500.2500 ####[facility] [address] [place], [address] MCHC Normal 32-36 [facility] Comment on above: Result Comment: Canc elled via OM: Order cancelled - Patient discharged Performed By: #### L 100.0100, L500.2500 ####[facility] [address] [place], [address] MCV Normal 81-99 [facility] Comment on above: Result Comment: Canc elled via OM: Order cancelled - Patient discharged Performed By: #### L 100.0100, L500.2500 ####[facility] [address] [place], [address] NEUT% Normal 47-70 [facility] Comment on above: Result Comment: Canc elled via OM: Order cancelled - Patient discharged Performed By: #### L 100.0100, L500.2500 ####[facility] [address] [place], [address] PLT Normal 150-450 [facility] Comment on above: Result Comment: Canc elled via OM: Order cancelled - Patient discharged Performed By: #### L 100.0100, L500.2500 ####[facility] [address] [place], [address] RBC Normal 4.2-5.4 [facility] Comment on above: Result Comment: Canc elled via OM: Order cancelled - Patient discharged Performed By: #### L 100.0100, L500.2500 ####[facility] [address] [place], [address] RDW CV Normal 11.6-14.6 [facility] Comment on above: Result Comment: Canc elled via OM: Order cancelled - Patient discharged Performed By: #### L 100.0100, L500.2500 ####[facility] [address] [place], [address] RDW SD Normal 35.1-43.9 [facility] Comment on above: Result Comment: Canc elled via OM: Order cancelled - Patient discharged Performed By: #### L 100.0100, L500.2500 ####[facility] [address] [place], [address] WBC Normal 4.4-11.0 [facility] Comment on above: Result Comment: Canc elled via OM: Order cancelled - Patient discharged Performed By: #### L 100.0100, L500.2500 ####[facility] [address] [place], [address] Basic Metabolic Profile (BMP )on 03-07-2025 BUN Normal -19 [facility] Comment on above: Result Comment: Canc elled via OM: Order cancelled - Patient discharged Performed By: #### L 100.0100, L500.2500 ####[facility] [address] [place], [address] BUN/CRE Normal 10-20 [facility] Comment on above: Result Comment: Canc elled via OM: Order cancelled - Patient discharged Performed By: #### L 100.0100, L500.2500 ####[facility] [address] [place], [address] Calcium Normal 7.6-11.0 [facility] Comment on above: Result Comment: Canc elled via OM: Order cancelled - Patient discharged Performed By: #### L 100.0100, L500.2500 ####[facility] [address] [place], [address] CL Normal 98-108 [facility] Comment on above: Result Comment: Canc elled via OM: Order cancelled - Patient discharged Performed By: #### L 100.0100, L500.2500 ####[facility] [address] [place], [address] CO2 Normal 21.0-32.0 [facility] Comment on above: Result Comment: Canc elled via OM: Order cancelled - Patient discharged Performed By: #### L 100.0100, L500.2500 ####[facility] [address] [place], [address] CREAT,SERUM Normal 0.70-1.20 [facility] Comment on above: Result Comment: Canc elled via OM: Order cancelled - Patient discharged Performed By: #### L 100.0100, L500.2500 ####[facility] [address] [place], [address] eGFR Normal >60 [facility] Comment on above: Result Comment: Canc elled via OM: Order cancelled - Patient discharged Performed By: #### L 100.0100, L500.2500 ####[facility] [address] [place], [address] GAP Normal 5-15 [facility] Comment on above: Result Comment: Canc elled via OM: Order cancelled - Patient discharged Performed By: #### L 100.0100, L500.2500 ####[facility] [address] [place], [address] GLU Normal 70-99 [facility] Comment on above: Result Comment: Canc elled via OM: Order cancelled - Patient discharged Performed By: #### L 100.0100, L500.2500 ####[facility] [address] [place], [address] Potassium Normal 3.3-5.1 [facility] Comment on above: Result Comment: Canc elled via OM: Order cancelled - Patient discharged Performed By: #### L 100.0100, L500.2500 ####[facility] [address] [place], [address] Basic Metabolic Profile (BMP) Normal 133-145 [facility] Comment on above: Result Comment: Canc elled via OM: Order cancelled - Patient discharged Performed By: #### L 100.0100, L500.2500 ####[facility] [address] [place], [address] CBC W/Diff, Automatedon - Absolute Neut Normal 2.0-7.7 [facility] Comment on above: Result Comment: Canc elled via OM: Order cancelled - Patient discharged Performed By: #### L 100.0100, L500.2500 ####[facility] [address] [place], [address] HCT Normal 37-47 [facility] Comment on above: Result Comment: Canc elled via OM: Order cancelled - Patient discharged Performed By: #### L 100.0100, L500.2500 ####[facility] [address] [place], [address] HGB Normal 12.0-15.0 [facility] Comment on above: Result Comment: Canc elled via OM: Order cancelled - Patient discharged Performed By: #### L 100.0100, L500.2500 ####[facility] [address] [place], [address] MCH Normal 27.0-32.0 [facility] Comment on above: Result Comment: Canc elled via OM: Order cancelled - Patient discharged Performed By: #### L 100.0100, L500.2500 ####[facility] [address] [place], [address] MCHC Normal 32-36 [facility] Comment on above: Result Comment: Canc elled via OM: Order cancelled - Patient discharged Performed By: #### L 100.0100, L500.2500 ####[facility] [address] [place], [address] MCV Normal 81-99 [facility] Comment on above: Result Comment: Canc elled via OM: Order cancelled - Patient discharged Performed By: #### L 100.0100, L500.2500 ####[facility] [address] [place], [address] NEUT% Normal 47-70 [facility] Comment on above: Result Comment: Canc elled via OM: Order cancelled - Patient discharged Performed By: #### L 100.0100, L500.2500 ####[facility] [address] [place], [address] PLT Normal 150-450 [facility] Comment on above: Result Comment: Canc elled via OM: Order cancelled - Patient discharged Performed By: #### L 100.0100, L500.2500 ####[facility] [address] [place], [address] RBC Normal 4.2-5.4 [facility] Comment on above: Result Comment: Canc elled via OM: Order cancelled - Patient discharged Performed By: #### L 100.0100, L500.2500 ####[facility] [address] [place], [address] RDW CV Normal 11.6-14.6 [facility] Comment on above: Result Comment: Canc elled via OM: Order cancelled - Patient discharged Performed By: #### L 100.0100, L500.2500 ####[facility] [address] [place], [address] RDW SD Normal 35.1-43.9 [facility] Comment on above: Result Comment: Canc elled via OM: Order cancelled - Patient discharged Performed By: #### L 100.0100, L500.2500 ####[facility] [address] [place], [address] WBC Normal 4.4-11.0 [facility] Comment on above: Result Comment: Canc elled via OM: Order cancelled - Patient discharged Performed By: #### L 100.0100, L500.2500 ####[facility] [address] [place], [address] HH, Hemoglobin AND Hematocri ton 03-07-2025 Hematocrit (Bld) [Volume fraction] 26.2 % Low 37-47 [facility] Comment on above: Performed By: #### L 100.0600 ####[facility] [address] [place], [address] Hemoglobin (Bld) [Mass/Vol] 9.0 g/dL Low 12.0-15.0 [facility] Comment on above: Performed By: #### L 100.0600 ####[facility] [address] [place], [address] Hematocrit Auto (Bld) [Volum e fraction]Ordered By: Garfield Yo on 03-07-2025 Hematocrit (Bld) [Volume fraction] 26.2 % Low 37-47 [facility] Hemoglobin measurementOrdere d By: Garfield Yo on 03-07-2025 Hemoglobin (Bld) [Mass/Vol] 9.0 g/dL Low 12.0-15.0 [facility] Basic Metabolic Profile (BMP )on 03-06-2025 BUN Normal 4-19 [facility] Comment on above: Result Comment: Canc elled via OM: Order cancelled - Patient discharged Performed By: #### L 100.0100, L500.2500 ####[facility] [address] [place], [address] BUN/CRE Normal 10-20 [facility] Comment on above: Result Comment: Canc elled via OM: Order cancelled - Patient discharged Performed By: #### L 100.0100, L500.2500 ####[facility] [address] [place], [address] Calcium Normal 7.6-11.0 [facility] Comment on above: Result Comment: Canc elled via OM: Order cancelled - Patient discharged Performed By: #### L 100.0100, L500.2500 ####[facility] [address] [place], [address] CL Normal 98-108 [facility] Comment on above: Result Comment: Canc elled via OM: Order cancelled - Patient discharged Performed By: #### L 100.0100, L500.2500 ####[facility] [address] [place], [address] CO2 Normal 21.0-32.0 [facility] Comment on above: Result Comment: Canc elled via OM: Order cancelled - Patient discharged Performed By: #### L 100.0100, L500.2500 ####[facility] [address] [place], [address] CREAT,SERUM Normal 0.70-1.20 [facility] Comment on above: Result Comment: Canc elled via OM: Order cancelled - Patient discharged Performed By: #### L 100.0100, L500.2500 ####[facility] [address] [place], [address] eGFR Normal >60 [facility] Comment on above: Result Comment: Canc elled via OM: Order cancelled - Patient discharged Performed By: #### L 100.0100, L500.2500 ####[facility] [address] [place], [address] GAP Normal 5-15 [facility] Comment on above: Result Comment: Canc elled via OM: Order cancelled - Patient discharged Performed By: #### L 100.0100, L500.2500 ####[facility] [address] [place], [address] GLU Normal 70-99 [facility] Comment on above: Result Comment: Canc elled via OM: Order cancelled - Patient discharged Performed By: #### L 100.0100, L500.2500 ####[facility] [address] [place], [address] Potassium Normal 3.3-5.1 [facility] Comment on above: Result Comment: Canc elled via OM: Order cancelled - Patient discharged Performed By: #### L 100.0100, L500.2500 ####[facility] [address] [place], [address] Basic Metabolic Profile (BMP) Normal 133-145 [facility] Comment on above: Result Comment: Canc elled via OM: Order cancelled - Patient discharged Performed By: #### L 100.0100, L500.2500 ####[facility] [address] [place], [address] CBC W/Diff, Automatedon - Absolute Neut Normal 2.0-7.7 [facility] Comment on above: Result Comment: Canc elled via OM: Order cancelled - Patient discharged Performed By: #### L 100.0100, L500.2500 ####[facility] [address] [place], [address] HCT Normal 37-47 [facility] Comment on above: Result Comment: Canc elled via OM: Order cancelled - Patient discharged Performed By: #### L 100.0100, L500.2500 ####[facility] [address] [place], [address] HGB Normal 12.0-15.0 [facility] Comment on above: Result Comment: Canc elled via OM: Order cancelled - Patient discharged Performed By: #### L 100.0100, L500.2500 ####[facility] [address] [place], [address] MCH Normal 27.0-32.0 [facility] Comment on above: Result Comment: Canc elled via OM: Order cancelled - Patient discharged Performed By: #### L 100.0100, L500.2500 ####[facility] [address] [place], [address] MCHC Normal 32-36 [facility] Comment on above: Result Comment: Canc elled via OM: Order cancelled - Patient discharged Performed By: #### L 100.0100, L500.2500 ####[facility] [address] [place], [address] MCV Normal 81-99 [facility] Comment on above: Result Comment: Canc elled via OM: Order cancelled - Patient discharged Performed By: #### L 100.0100, L500.2500 ####[facility] [address] [place], [address] NEUT% Normal 47-70 [facility] Comment on above: Result Comment: Canc elled via OM: Order cancelled - Patient discharged Performed By: #### L 100.0100, L500.2500 ####[facility] [address] [place], [address] PLT Normal 150-450 [facility] Comment on above: Result Comment: Canc elled via OM: Order cancelled - Patient discharged Performed By: #### L 100.0100, L500.2500 ####[facility] [address] [place], [address] RBC Normal 4.2-5.4 [facility] Comment on above: Result Comment: Canc elled via OM: Order cancelled - Patient discharged Performed By: #### L 100.0100, L500.2500 ####[facility] [address] [place], [address] RDW CV Normal 11.6-14.6 [facility] Comment on above: Result Comment: Canc elled via OM: Order cancelled - Patient discharged Performed By: #### L 100.0100, L500.2500 ####[facility] [address] [place], [address] RDW SD Normal 35.1-43.9 [facility] Comment on above: Result Comment: Canc elled via OM: Order cancelled - Patient discharged Performed By: #### L 100.0100, L500.2500 ####[facility] [address] [place], [address] WBC Normal 4.4-11.0 [facility] Comment on above: Result Comment: Canc elled via OM: Order cancelled - Patient discharged Performed By: #### L 100.0100, L500.2500 ####[facility] [address] [place], [address] Knee 1 or 2 Viewson 03-06-20 25 Knee 1 or 2 Views [facility] [address] [place] [address] Knee 1 or 2 Views MR#: [id number] Acct: [id number] Name: MICHAELA BRANDT Rep #: [id number] : [id number] F 84 From: Marc Warner MD PCP: Dr. Dillan Santiago MD Status: ADM IN Study: Knee 1 or 2 Views Date of Exam: 03/06/25 Exam# [id number] Ordering Dr: Garfield Yo MD PROCEDURE: KNEE [...] or MRI may be useful. Reading Location: [id number] CC: Dr. Dillan Santiago MD; Dr. Garfield Yo MD Bulk Mail Clerk: Signed Normal [facility] Absolute neutrophil countOrd ered By: Garfield Yo on 03-05-2025 Neutrophils (Bld) [#/Vol] 7.3 10*3/uL 2.0-7.7 [facility] Anion gap in Serum or Plasma Ordered By: Garfield Yo on 03-05-2025 Anion gap [Moles/Vol] 10 mmol/L - [facility] BUN/creatinine ratioOrdered By: Garfield Yo on 03-05-2025 Urea nitrogen/Creatinine [Mass ratio] 17.0 mg/mg - [facility] Basic Metabolic Profile (BMP )on 03-05-2025 BUN/CRE 17.0 RATIO Normal - [facility] Comment on above: Performed By: #### L 100.0100, L500.2500 ####[facility] [address] [place], [address] Calcium [Mass/Vol] 8.5 mg/dL Normal 7.6-11.0 [facility] Comment on above: Performed By: #### L 100.0100, L500.2500 ####[facility] [address] [place], [address] Chloride [Moles/Vol] 102 mmol/L Normal 98-108 [facility] Comment on above: Performed By: #### L 100.0100, L500.2500 ####[facility] [address] [place], [address] CO2 [Moles/Vol] 27.5 mmol/L Normal 21.0-32.0 [facility] Comment on above: Performed By: #### L 100.0100, L500.2500 ####[facility] [address] [place], [address] Creatinine [Mass/Vol] 0.78 mg/dL Normal 0.70-1.20 [facility] Comment on above: Performed By: #### L 100.0100, L500.2500 ####[facility] [address] [place], [address] ECRCL 41.90 ml/min Low 50-250 [facility] Comment on above: Performed By: #### L 100.0100, L500.2500 ####[facility] [address] [place], [address] GAP 10 Normal 5-15 [facility] Comment on above: Performed By: #### L 100.0100, L500.2500 ####[facility] [address] [place], [address] GFR/1.73 sq M.predicted among non-blacks MDRD (S/P/Bld) [Vol rate/Area] 74 mL/min/{1.73_m2} Normal >60 [facility] Comment on above: Result Comment: mL/m in/1.73m2 CKD-EPI Creatinine Equation (2020) Performed By: #### L 100.0100, L500.2500 ####[facility] [address] [place], [address] Glucose [Mass/Vol] 100 mg/dL High 70-99 [facility] [facility] Comment on above: Performed By: #### L 100.0100, L500.2500 ####[facility] [address] [place], [address] Potassium [Moles/Vol] 3.3 mmol/L Normal 3.3-5.1 [facility] Comment on above: Performed By: #### L 100.0100, L500.2500 ####[facility] [address] [place], [address] Sodium [Moles/Vol] 140 mmol/L Normal 133-145 [facility] Comment on above: Performed By: #### L 100.0100, L500.2500 ####[facility] [address] [place], [address] Urea nitrogen [Mass/Vol] 13 mg/dL Normal 4-19 [facility] Comment on above: Performed By: #### L 100.0100, L500.2500 ####[facility] [address] [place], [address] BUN Normal 4-19 [facility] Comment on above: Result Comment: Canc elled via OM: Order cancelled - Patient discharged Performed By: #### L 500.2500, L100.0100 ####[facility] [address] [place], [address] BUN/CRE Normal 10-20 [facility] Comment on above: Result Comment: Canc elled via OM: Order cancelled - Patient discharged Performed By: #### L 500.2500, L100.0100 ####[facility] [address] [place], [address] Calcium Normal 7.6-11.0 [facility] Comment on above: Result Comment: Canc elled via OM: Order cancelled - Patient discharged Performed By: #### L 500.2500, L100.0100 ####[facility] [address] [place], [address] CL Normal 98-108 [facility] Comment on above: Result Comment: Canc elled via OM: Order cancelled - Patient discharged Performed By: #### L 500.2500, L100.0100 ####[facility] [address] [place], [address] CO2 Normal 21.0-32.0 [facility] Comment on above: Result Comment: Canc elled via OM: Order cancelled - Patient discharged Performed By: #### L 500.2500, L100.0100 ####[facility] [address] [place], [address] CREAT,SERUM Normal 0.70-1.20 [facility] Comment on above: Result Comment: Canc elled via OM: Order cancelled - Patient discharged Performed By: #### L 500.2500, L100.0100 ####[facility] [address] [place], [address] eGFR Normal >60 [facility] Comment on above: Result Comment: Canc elled via OM: Order cancelled - Patient discharged Performed By: #### L 500.2500, L100.0100 ####[facility] [address] [place], [address] GAP Normal 5-15 [facility] Comment on above: Result Comment: Canc elled via OM: Order cancelled - Patient discharged Performed By: #### L 500.2500, L100.0100 ####[facility] [address] [place], [address] GLU Normal 70-99 [facility] Comment on above: Result Comment: Canc elled via OM: Order cancelled - Patient discharged Performed By: #### L 500.2500, L100.0100 ####[facility] [address] [place], [address] Potassium Normal 3.3-5.1 [facility] Comment on above: Result Comment: Canc elled via OM: Order cancelled - Patient discharged Performed By: #### L 500.2500, L100.0100 ####[facility] [address] [place], [address] Basic Metabolic Profile (BMP) Normal 133-145 [facility] Comment on above: Result Comment: Canc elled via OM: Order cancelled - Patient discharged Performed By: #### L 500.2500, L100.0100 ####[facility] [address] [place], [address] Basophil percentageOrdered B y: Garfield Yo on 03-05-2025 Basophils/100 WBC (Bld) 0.5 % 0-1 [facility] CBC W/Diff, Automatedon 02-17 Absolute Lymph 1.57 X10 3/uL Normal 0.83-4.51 [facility] Comment on above: Performed By: #### L 100.0100, L500.2500 ####[facility] [address] [place], [address] Absolute Neut 7.3 X10 3/uL Normal 2.0-7.7 [facility] Comment on above: Performed By: #### L 100.0100, L500.2500 ####[facility] [address] [place], [address] Basophils/100 WBC (Bld) 0.5 % Normal 0-1 [facility] Comment on above: Performed By: #### L 100.0100, L500.2500 ####[facility] [address] [place], [address] Eosinophils/100 WBC (Bld) 3.5 % Normal 0-5 [facility] Comment on above: Performed By: #### L 100.0100, L500.2500 ####[facility] [address] [place], [address] Erythrocyte distribution width (RBC) [Ratio] 13.2 % Normal 11.6-14.6 [facility] Comment on above: Performed By: #### L 100.0100, L500.2500 ####[facility] [address] [place], [address] Hematocrit (Bld) [Volume fraction] 25.8 % Low 37-47 [facility] Comment on above: Performed By: #### L 100.0100, L500.2500 ####[facility] [address] [place], [address] Hemoglobin (Bld) [Mass/Vol] 9.0 g/dL Low 12.0-15.0 [facility] Comment on above: Performed By: #### L 100.0100, L500.2500 ####[facility] [address] [place], [address] IG% 1.100 High 0.0-0.9 [facility] Comment on above: Result Comment: IG% - Immature Granulocytes (promyelocytes, myelocytes and metamyelocytes) > 1% indicates that a LEFT SHIFT is Present. Performed By: #### L 100.0100, L500.2500 ####[facility] [address] [place], [address] Lymphocytes/100 WBC (Bld) 15.9 % Low 19-41 [facility] Comment on above: Performed By: #### L 100.0100, L500.2500 ####[facility] [address] [place], [address] MCH (RBC) [Entitic mass] 30.7 pg Normal 27.0-32.0 [facility] Comment on above: Performed By: #### L 100.0100, L500.2500 ####[facility] [address] [place], [address] MCHC (RBC) [Mass/Vol] 34.9 g/dL Normal 32-36 [facility] Comment on above: Performed By: #### L 100.0100, L500.2500 ####[facility] [address] [place], [address] MCV (RBC) [Entitic vol] 88.1 fL Normal 81-99 [facility] Comment on above: Performed By: #### L 100.0100, L500.2500 ####[facility] [address] [place], [address] Monocytes/100 WBC (Bld) 5.6 % Normal 0-10 [facility] Comment on above: Performed By: #### L 100.0100, L500.2500 ####[facility] [address] [place], [address] Neutrophils/100 WBC (Bld) 73.4 % High 47-70 [facility] Comment on above: Performed By: #### L 100.0100, L500.2500 ####[facility] [address] [place], [address] Nucleated RBC (Bld) [#/Vol] 0 10*3/uL Normal 0-5 [facility] Comment on above: Performed By: #### L 100.0100, L500.2500 ####[facility] [address] [place], [address] Platelet mean volume (Bld) [Entitic vol] 10.3 fL Normal 6.2-12.0 [facility] Comment on above: Performed By: #### L 100.0100, L500.2500 ####[facility] [address] [place], [address] Platelets (Bld) [#/Vol] 195 10*3/uL Normal 150-450 [facility] Comment on above: Performed By: #### L 100.0100, L500.2500 ####[facility] [address] [place], [address] RBC (Bld) [#/Vol] 2.93 10*6/uL Low 4.2-5.4 [facility] Comment on above: Performed By: #### L 100.0100, L500.2500 ####[facility] [address] [place], [address] RDW SD 42.1 fl Normal 35.1-43.9 [facility] Comment on above: Performed By: #### L 100.0100, L500.2500 ####[facility] [address] [place], [address] WBC (Bld) [#/Vol] 9.9 10*3/uL Normal 4.4-11.0 [facility] Comment on above: Performed By: #### L 100.0100, L500.2500 ####[facility] [address] [place], [address] Absolute Neut Normal 2.0-7.7 [facility] Comment on above: Result Comment: Canc elled via OM: Order cancelled - Patient discharged Performed By: #### L 500.2500, L100.0100 ####[facility] [address] [place], [address] HCT Normal 37-47 [facility] Comment on above: Result Comment: Canc elled via OM: Order cancelled - Patient discharged Performed By: #### L 500.2500, L100.0100 ####[facility] [address] [place], [address] HGB Normal 12.0-15.0 [facility] Comment on above: Result Comment: Canc elled via OM: Order cancelled - Patient discharged Performed By: #### L 500.2500, L100.0100 ####[facility] [address] [place], [address] MCH Normal 27.0-32.0 [facility] Comment on above: Result Comment: Canc elled via OM: Order cancelled - Patient discharged Performed By: #### L 500.2500, L100.0100 ####[facility] [address] [place], [address] MCHC Normal 32-36 [facility] Comment on above: Result Comment: Canc elled via OM: Order cancelled - Patient discharged Performed By: #### L 500.2500, L100.0100 ####[facility] [address] [place], [address] MCV Normal 81-99 [facility] Comment on above: Result Comment: Canc elled via OM: Order cancelled - Patient discharged Performed By: #### L 500.2500, L100.0100 ####[facility] [address] [place], [address] NEUT% Normal 47-70 [facility] Comment on above: Result Comment: Canc elled via OM: Order cancelled - Patient discharged Performed By: #### L 500.2500, L100.0100 ####[facility] [address] [place], [address] PLT Normal 150-450 [facility] Comment on above: Result Comment: Canc elled via OM: Order cancelled - Patient discharged Performed By: #### L 500.2500, L100.0100 ####[facility] [address] [place], [address] RBC Normal 4.2-5.4 [facility] Comment on above: Result Comment: Canc elled via OM: Order cancelled - Patient discharged Performed By: #### L 500.2500, L100.0100 ####[facility] [address] [place], [address] RDW CV Normal 11.6-14.6 [facility] Comment on above: Result Comment: Canc elled via OM: Order cancelled - Patient discharged Performed By: #### L 500.2500, L100.0100 ####[facility] [address] [place], [address] RDW SD Normal 35.1-43.9 [facility] Comment on above: Result Comment: Canc elled via OM: Order cancelled - Patient discharged Performed By: #### L 500.2500, L100.0100 ####[facility] [address] [place], [address] WBC Normal 4.4-11.0 [facility] Comment on above: Result Comment: Canc elled via OM: Order cancelled - Patient discharged Performed By: #### L 500.2500, L100.0100 ####[facility] [address] [place], [address] Carbon dioxide, total [Moles /volume] in Central venous bloodOrdered By: Garfield Yo on 03-05-2025 CO2 [Moles/Vol] 27.5 mmol/L 21.0-32.0 [facility] Chloride assayOrdered By: Kristopher Yo on 03-05-2025 Chloride [Moles/Vol] 102 mmol/L 98-108 [facility] Eosinophil percentageOrdered By: Garfield Yo 03-05-2025 Eosinophils/100 WBC (Bld) 3.5 % 0-5 [facility] Erythrocyte distribution wid th (RBC) [Ratio]Ordered By: Garfield Yo on 03-05-2025 Erythrocyte distribution width (RBC) [Entitic vol] 42.1 fL 35.1-43.9 [facility] Erythrocyte distribution wid th ratioOrdered By: Garfield Yo 03-05-2025 Erythrocyte distribution width (RBC) [Ratio] 13.2 % 11.6-14.6 [facility] Estimation of creatinine winston aranceOrdered By: Garfield Yo 03-05-2025 Estimated Creatinine Clearance Calc 41.90 ml/min Low 50-250 [facility] GFR/1.73 sq M.predicted arti g non-blacks MDRD (S/P/Bld) [Vol rate/Area]Ordered By: Garfield Yo 03-05-2025 Estimated GFR (MDRD) Non-Af Amer 74 >60 [facility] Comment on above: mL/min/1.73m2 CKD-EP I Creatinine Equation (2020) Immature granulocytes/100 WB C Auto (Bld)Ordered By: Garfield Yo 03-05-2025 Immature granulocytes/100 WBC (Bld) 1.100 % High 0.0-0.9 [facility] Comment on above: IG% - Immature Granu locytes (promyelocytes, myelocytes and metamyelocytes) > 1% indicates that a LEFT SHIFT is Present. Lymphocytes Auto (Unsp spec) [#/Vol]Ordered By: Garfield Yo 03-05-2025 Lymphocytes (Bld) [#/Vol] 1.57 10*3/uL 0.83-4.51 [facility] Lymphocytes/100 WBC Auto (Un sp spec)Ordered By: Garfield Yo 03-05-2025 Lymphocytes/100 WBC (Bld) 15.9 % Low 19-41 [facility] MCV (mean corpuscular volume ) determinationOrdered By: Garfield Yo on 03-05-2025 MCV (RBC) [Entitic vol] 88.1 fL 81-99 [facility] Mean corpuscular hemoglobin (MCH) determinationOrdered By: Garfield Yo on 03-05-2025 MCH (RBC) [Entitic mass] 30.7 pg 27.0-32.0 [facility] Mean corpuscular hemoglobin concentration (MCHC) determinationOrdered By: Garfield Yo on 03-05-2025 MCHC (RBC) [Mass/Vol] 34.9 g/dL 32-36 [facility] Mean platelet volume determi nationOrdered By: Garfield Yo on 03-05-2025 Platelet mean volume (Bld) [Entitic vol] 10.3 fL 6.2-12.0 [facility] Monocyte percentageOrdered B y: Garfield Yo on 03-05-2025 Monocytes/100 WBC (Bld) 5.6 % 0-10 [facility] Neutrophil percentageOrdered By: Garfield Yo on 03-05-2025 Neutrophils/100 WBC (Bld) 73.4 % High 47-70 [facility] Nucleated red blood cell per centageOrdered By: Garfield Yo on 03-05-2025 Nucleated RBC/100 WBC (Bld) [Ratio] 0 % 0-5 [facility] Platelet countOrdered By: Kristopher Yo on 03-05-2025 Platelets (Bld) [#/Vol] 195 10*3/uL 150-450 [facility] Potassium (Unsp spec) [Mass/ Vol]Ordered By: Garfield Yo on 03-05-2025 Potassium [Moles/Vol] 3.3 mmol/L 3.3-5.1 [facility] RBC Auto (Bld) [#/Vol]Ordere d By: Garfield Yo on 03-05-2025 RBC (Bld) [#/Vol] 2.93 10*6/uL Low 4.2-5.4 [facility] Serum creatinine measurement (mass/volume)Ordered By: Garfield Yo on 03-05-2025 Creatinine [Mass/Vol] 0.78 mg/dL 0.70-1.20 [facility] Serum glucose measurement (m ass/volume)Ordered By: Garfield Yo on 03-05-2025 Glucose [Mass/Vol] 100 mg/dL High 70-99 [facility] Serum or plasma calcium thomas urement (mass/volume)Ordered By: Garfield Yo on 03-05-2025 Calcium [Mass/Vol] 8.5 mg/dL 7.6-11.0 [facility] Serum or plasma urea nitroge n measurement (mass/volume)Ordered By: Garfield Yo on 03-05-2025 Urea nitrogen [Mass/Vol] 13 mg/dL 4-19 [facility] Sodium levelOrdered By: Garfield Yo on 03-05-2025 Sodium [Moles/Vol] 140 mmol/L 133-145 [facility] White blood cell (WBC) count Ordered By: Garfield Yo on 03-05-2025 WBC (Bld) [#/Vol] 9.9 10*3/uL 4.4-11.0 [facility] Absolute lymphocyte countOrd ered By: Allison Tran on 03-04-2025 Lymphocytes Auto (Unsp spec) [#/Vol] 1.35 10*3/uL 0.83-4.51 [facility] Absolute neutrophil countOrd ered By: Allison Tran on 03-04-2025 Neutrophils (Bld) [#/Vol] 9.0 10*3/uL High 2.0-7.7 [facility] Anion gap in Serum or Plasma Ordered By: Allison Tran on 03-04-2025 Anion gap [Moles/Vol] 10 mmol/L 5-15 [facility] Automated lymphocyte count a s percentage of total leukocytesOrdered By: Allison Tran on 03-04-2025 Lymphocytes/100 WBC Auto (Unsp spec) 11.6 % Low 19-41 [facility] BUN/creatinine ratioOrdered By: Allison Tran on 03-04-2025 Urea nitrogen/Creatinine [Mass ratio] 18.5 mg/mg 10- [facility] Basic Metabolic Profile (BMP )on 03-04-2025 BUN/CRE 18.5 RATIO Normal 10- [facility] Comment on above: Performed By: #### L 100.0100, L500.2500 ####[facility] [address] [place], [address] Calcium [Mass/Vol] 8.4 mg/dL Normal 7.6-11.0 [facility] Comment on above: Performed By: #### L 100.0100, L500.2500 ####[facility] [address] [place], [address] Chloride [Moles/Vol] 103 mmol/L Normal 98-108 [facility] Comment on above: Performed By: #### L 100.0100, L500.2500 ####[facility] [address] [place], [address] CO2 [Moles/Vol] 26.0 mmol/L Normal 21.0-32.0 [facility] Comment on above: Performed By: #### L 100.0100, L500.2500 ####[facility] [address] [place], [address] Creatinine [Mass/Vol] 0.76 mg/dL Normal 0.70-1.20 [facility] Comment on above: Performed By: #### L 100.0100, L500.2500 ####[facility] [address] [place], [address] ECRCL 41.63 ml/min Low 50-250 [facility] Comment on above: Performed By: #### L 100.0100, L500.2500 ####[facility] [address] [place], [address] GAP 10 Normal 5-15 [facility] Comment on above: Performed By: #### L 100.0100, L500.2500 ####[facility] [address] [place], [address] GFR/1.73 sq M.predicted among non-blacks MDRD (S/P/Bld) [Vol rate/Area] 77 mL/min/{1.73_m2} Normal >60 [facility] Comment on above: Result Comment: mL/m in/1.73m2 CKD-EPI Creatinine Equation (2020) Performed By: #### L 100.0100, L500.2500 ####[facility] [address] [place], [address] Glucose [Mass/Vol] 112 mg/dL High 70-99 [facility] Comment on above: Performed By: #### L 100.0100, L500.2500 ####[facility] [address] [place], [address] Potassium [Moles/Vol] 3.7 mmol/L Normal 3.3-5.1 [facility] Comment on above: Performed By: #### L 100.0100, L500.2500 ####[facility] [address] [place], [address] Sodium [Moles/Vol] 139 mmol/L Normal 133-145 [facility] Comment on above: Performed By: #### L 100.0100, L500.2500 ####[facility] [address] [place], [address] Urea nitrogen [Mass/Vol] 14 mg/dL Normal 4-19 [facility] Comment on above: Performed By: #### L 100.0100, L500.2500 ####[facility] [address] [place], [address] Basophil percentageOrdered B y: Allison Tran on 03-04-2025 Basophils/100 WBC (Bld) 0.6 % 0-1 [facility] CBC W/Diff, Automatedon 02-17 Absolute Lymph 1.35 X10 3/uL Normal 0.83-4.51 [facility] Comment on above: Performed By: #### L 100.0100, L500.2500 ####[facility] [address] [place], [address] Absolute Neut 9.0 X10 3/uL High 2.0-7.7 [facility] Comment on above: Performed By: #### L 100.0100, L500.2500 ####[facility] [address] [place], [address] Basophils/100 WBC (Bld) 0.6 % Normal 0-1 [facility] Comment on above: Performed By: #### L 100.0100, L500.2500 ####[facility] [address] [place], [address] Eosinophils/100 WBC (Bld) 1.8 % Normal 0-5 [facility] Comment on above: Performed By: #### L 100.0100, L500.2500 ####[facility] [address] [place], [address] Erythrocyte distribution width (RBC) [Ratio] 13.2 % Normal 11.6-14.6 [facility] Comment on above: Performed By: #### L 100.0100, L500.2500 ####[facility] [address] [place], [address] Hematocrit (Bld) [Volume fraction] 24.6 % Low 37-47 [facility] Comment on above: Performed By: #### L 100.0100, L500.2500 ####[facility] [address] [place], [address] Hemoglobin (Bld) [Mass/Vol] 8.5 g/dL Low 12.0-15.0 [facility] Comment on above: Performed By: #### L 100.0100, L500.2500 ####[facility] [address] [place], [address] IG% 0.900 Normal 0.0-0.9 [facility] Comment on above: Result Comment: IG% - Immature Granulocytes (promyelocytes, myelocytes and metamyelocytes) > 1% indicates that a LEFT SHIFT is Present. Performed By: #### L 100.0100, L500.2500 ####[facility] [address] [place], [address] Lymphocytes/100 WBC (Bld) 11.6 % Low 19-41 [facility] Comment on above: Performed By: #### L 100.0100, L500.2500 ####[facility] [address], [address] MCH (RBC) [Entitic mass] 29.9 pg Normal 27.0-32.0 [facility] Comment on above: Performed By: #### L 100.0100, L500.2500 ####[facility] [address] [place], [address] MCHC (RBC) [Mass/Vol] 34.6 g/dL Normal 32-36 [facility] Comment on above: Performed By: #### L 100.0100, L500.2500 ####[facility] [address] [place], [address] MCV (RBC) [Entitic vol] 86.6 fL Normal 81-99 [facility] Comment on above: Performed By: #### L 100.0100, L500.2500 ####[facility] [address] [place], [address] Monocytes/100 WBC (Bld) 7.6 % Normal 0-10 [facility] Comment on above: Performed By: #### L 100.0100, L500.2500 ####[facility] [address] [place], [address] Neutrophils/100 WBC (Bld) 77.5 % High 47-70 [facility] Comment on above: Performed By: #### L 100.0100, L500.2500 ####[facility] [address] [place], [address] Nucleated RBC (Bld) [#/Vol] 0 10*3/uL Normal 0-5 [facility] Comment on above: Performed By: #### L 100.0100, L500.2500 ####[facility] [address] [place], [address] Platelet mean volume (Bld) [Entitic vol] 10.3 fL Normal 6.2-12.0 [facility] Comment on above: Performed By: #### L 100.0100, L500.2500 ####[facility] [address] [place], [address] Platelets (Bld) [#/Vol] 177 10*3/uL Normal 150-450 [facility] Comment on above: Performed By: #### L 100.0100, L500.2500 ####[facility] [address] [place], [address] RBC (Bld) [#/Vol] 2.84 10*6/uL Low 4.2-5.4 [facility] Comment on above: Performed By: #### L 100.0100, L500.2500 ####[facility] [address] [place], [address] RDW SD 41.2 fl Normal 35.1-43.9 [facility] Comment on above: Performed By: #### L 100.0100, L500.2500 ####[facility] [address] [place], [address] WBC (Bld) [#/Vol] 11.6 10*3/uL High 4.4-11.0 [facility] Comment on above: Performed By: #### L 100.0100, L500.2500 ####[facility] [address] [place], [address] Carbon dioxide, total [Moles /volume] in Central venous bloodOrdered By: Allison Tran on 03-04-2025 CO2 [Moles/Vol] 26.0 mmol/L 21.0-32.0 [facility] Chloride assayOrdered By: Na na Chelsea on 03-04-2025 Chloride [Moles/Vol] 103 mmol/L 98-108 [facility] Eosinophil percentageOrdered By: Allison Tran on 03-04-2025 Eosinophils/100 WBC (Bld) 1.8 % 0-5 [facility] Erythrocyte distribution wid th (RBC) [Ratio]Ordered By: Allison rTan on 03-04-2025 Erythrocyte distribution width (RBC) [Entitic vol] 41.2 fL 35.1-43.9 [facility] Erythrocyte distribution wid th ratioOrdered By: Allison Tran on 03-04-2025 Erythrocyte distribution width (RBC) [Ratio] 13.2 % 11.6-14.6 [facility] Erythrocyte distribution wid th standard deviationOrdered By: Allison Tran on 03-04-2025 Erythrocyte distribution width (RBC) [Ratio] 41.2 fl 35.1-43.9 [facility] Estimation of creatinine winston aranceOrdered By: Allison Tran on 03-04-2025 Estimated Creatinine Clearance Calc 41.63 ml/min Low 50-250 [facility] GFR/1.73 sq M.predicted arti g non-blacks MDRD (S/P/Bld) [Vol rate/Area]Ordered By: Allison Tran on 03-04-2025 Estimated GFR (MDRD) Non-Af Amer 77 >60 [facility] Comment on above: mL/min/1.73m2 CKD-EP I Creatinine Equation (2020) Glomerular filtration rate ( GFR) estimation/1.73 sq m using serum, plasma, or whole bOrdered By: Allison Tran 03-04-2025 GFR/1.73 sq M.predicted among non-blacks MDRD (S/P/Bld) [Vol rate/Area] 77 mL/min/{1.73_m2} >60 [facility] Comment on above: mL/min/1.73m2 CKD-EP I Creatinine Equation (2020) Hematocrit Auto (Bld) [Volum e fraction]Ordered By: Allison Tran 03-04-2025 Hematocrit (Bld) [Volume fraction] 24.6 % Low 37-47 [facility] Hemoglobin measurementOrdere d By: Allison Tran on 03-04-2025 Hemoglobin (Bld) [Mass/Vol] 8.5 g/dL Low 12.0-15.0 [facility] Immature granulocytes/100 WB C Auto (Bld)Ordered By: Allison Tran on 03-04-2025 Immature granulocytes/100 WBC (Bld) 0.900 % 0.0-0.9 [facility] Comment on above: IG% - Immature Granu locytes (promyelocytes, myelocytes and metamyelocytes) > 1% indicates that a LEFT SHIFT is Present. Lymphocytes Auto (Unsp spec) [#/Vol]Ordered By: Allison Tran on 03-04-2025 Lymphocytes (Bld) [#/Vol] 1.35 10*3/uL 0.83-4.51 [facility] Lymphocytes/100 WBC Auto (Un sp spec)Ordered By: Allison Tran on 03-04-2025 Lymphocytes/100 WBC (Bld) 11.6 % Low 19-41 [facility] MCV (mean corpuscular volume ) determinationOrdered By: Allison Tran on 03-04-2025 MCV (RBC) [Entitic vol] 86.6 fL 81-99 [facility] Mean corpuscular hemoglobin (MCH) determinationOrdered By: Allison Tran 03-04-2025 MCH (RBC) [Entitic mass] 29.9 pg 27.0-32.0 [facility] Mean corpuscular hemoglobin concentration (MCHC) determinationOrdered By: Allison Tran 03-04-2025 MCHC (RBC) [Mass/Vol] 34.6 g/dL 32-36 [facility] Mean platelet volume determi nationOrdered By: Allison Tran on 03-04-2025 Platelet mean volume (Bld) [Entitic vol] 10.3 fL 6.2-12.0 [facility] Monocyte percentageOrdered B y: Allison Tran on 03-04-2025 Monocytes/100 WBC (Bld) 7.6 % 0-10 [facility] Neutrophil percentageOrdered By: Allison Tran on 03-04-2025 Neutrophils/100 WBC (Bld) 77.5 % High 47-70 [facility] Nucleated red blood cell per centageOrdered By: Allison Tran on 03-04-2025 Nucleated RBC/100 WBC (Bld) [Ratio] 0 % 0-5 [facility] Platelet countOrdered By: Jessica Tran on 03-04-2025 Platelets (Bld) [#/Vol] 177 10*3/uL 150-450 [facility] Potassium (Unsp spec) [Mass/ Vol]Ordered By: Allison Tran on 03-04-2025 Potassium [Moles/Vol] 3.7 mmol/L 3.3-5.1 [facility] Potassium measurement (mass/ volume)Ordered By: Allison Tran on 03-04-2025 Potassium (Unsp spec) [Mass/Vol] 3.7 mmol/L 3.3-5.1 [facility] RBC Auto (Bld) [#/Vol]Ordere d By: Allison Tran on 03-04-2025 RBC (Bld) [#/Vol] 2.84 10*6/uL Low 4.2-5.4 [facility] Serum creatinine measurement (mass/volume)Ordered By: Allison Tran on 03-04-2025 Creatinine [Mass/Vol] 0.76 mg/dL 0.70-1.20 [facility] Serum glucose measurement (m ass/volume)Ordered By: Allison Tran on 03-04-2025 Glucose [Mass/Vol] 112 mg/dL High 70-99 [facility] Serum or plasma calcium thomas urement (mass/volume)Ordered By: Allison Tran on 03-04-2025 Calcium [Mass/Vol] 8.4 mg/dL 7.6-11.0 [facility] Serum or plasma urea nitroge n measurement (mass/volume)Ordered By: Allison Tran on 03-04-2025 Urea nitrogen [Mass/Vol] 14 mg/dL 4-19 [facility] Sodium levelOrdered By: Allison Tran on 03-04-2025 Sodium [Moles/Vol] 139 mmol/L 133-145 [facility] White blood cell (WBC) count Ordered By: Allison Tran on 03-04-2025 WBC (Bld) [#/Vol] 11.6 10*3/uL High 4.4-11.0 [facility] Basic Metabolic Profile (BMP )on 03-03-2025 BUN/CRE 13.6 RATIO Normal 10-20 [facility] Comment on above: Performed By: #### L 100.0100, L500.2500 ####[facility] [address] [place], [address] Calcium [Mass/Vol] 8.3 mg/dL Normal 7.6-11.0 [facility] Comment on above: Performed By: #### L 100.0100, L500.2500 ####[facility] [address] [place], [address] Chloride [Moles/Vol] 102 mmol/L Normal 98-108 [facility] Comment on above: Performed By: #### L 100.0100, L500.2500 ####[facility] [address] [place], [address] CO2 [Moles/Vol] 25.7 mmol/L Normal 21.0-32.0 [facility] Comment on above: Performed By: #### L 100.0100, L500.2500 ####[facility] [address] [place], [address] Creatinine [Mass/Vol] 0.94 mg/dL Normal 0.70-1.20 [facility] Comment on above: Performed By: #### L 100.0100, L500.2500 ####[facility] [address] [place], [address] ECRCL 35.43 ml/min Low 50-250 [facility] Comment on above: Performed By: #### L 100.0100, L500.2500 ####[facility] [address] [place], [address] GAP 10 Normal 5-15 [facility] Comment on above: Performed By: #### L 100.0100, L500.2500 ####[facility] [address] [place], [address] GFR/1.73 sq M.predicted among non-blacks MDRD (S/P/Bld) [Vol rate/Area] 60 mL/min/{1.73_m2} Normal >60 [facility] Comment on above: Result Comment: mL/m in/1.73m2 CKD-EPI Creatinine Equation (2020) Performed By: #### L 100.0100, L500.2500 ####[facility] [address] [place], [address] Glucose [Mass/Vol] 102 mg/dL High 70-99 [facility] Comment on above: Performed By: #### L 100.0100, L500.2500 ####[facility] [address] [place], [address] Potassium [Moles/Vol] 3.9 mmol/L Normal 3.3-5.1 [facility] Comment on above: Result Comment: Hemo lysis present, Results??could be affected. ?? Performed By: #### L 100.0100, L500.2500 ####[facility] [address] [place], [address] Sodium [Moles/Vol] 137 mmol/L Normal 133-145 [facility] Comment on above: Performed By: #### L 100.0100, L500.2500 ####[facility] [address] [place], [address] Urea nitrogen [Mass/Vol] 13 mg/dL Normal 4-19 [facility] Comment on above: Performed By: #### L 100.0100, L500.2500 ####[facility] [address] [place], [address] CBC W/Diff, Automatedon 02-17 Absolute Lymph 1.61 X10 3/uL Normal 0.83-4.51 [facility] Comment on above: Performed By: #### L 100.0100, L500.2500 ####[facility] [address] [place], [address] Absolute Neut 9.5 X10 3/uL High 2.0-7.7 [facility] Comment on above: Performed By: #### L 100.0100, L500.2500 ####[facility] [address] [place], [address] Basophils/100 WBC (Bld) 0.5 % Normal 0-1 [facility] Comment on above: Performed By: #### L 100.0100, L500.2500 ####[facility] [address] [place], [address] Eosinophils/100 WBC (Bld) 1.9 % Normal 0-5 [facility] Comment on above: Performed By: #### L 100.0100, L500.2500 ####[facility] [address] [place], [address] Erythrocyte distribution width (RBC) [Ratio] 13.2 % Normal 11.6-14.6 [facility] Comment on above: Performed By: #### L 100.0100, L500.2500 ####[facility] [address] [place], [address] Hematocrit (Bld) [Volume fraction] 25.5 % Low 37-47 [facility] Comment on above: Performed By: #### L 100.0100, L500.2500 ####[facility] [address] [place], [address] Hemoglobin (Bld) [Mass/Vol] 8.7 g/dL Low 12.0-15.0 [facility] Comment on above: Performed By: #### L 100.0100, L500.2500 ####[facility] [address] [place], [address] IG% 0.800 Normal 0.0-0.9 [facility] Comment on above: Result Comment: IG% - Immature Granulocytes (promyelocytes, myelocytes and metamyelocytes) > 1% indicates that a LEFT SHIFT is Present. Performed By: #### L 100.0100, L500.2500 ####[facility] [address] [place], [address] Lymphocytes/100 WBC (Bld) 12.6 % Low 19-41 [facility] Comment on above: Performed By: #### L 100.0100, L500.2500 ####[facility] [address] [place], [address] MCH (RBC) [Entitic mass] 30.2 pg Normal 27.0-32.0 [facility] Comment on above: Performed By: #### L 100.0100, L500.2500 ####[facility] [address] [place], [address] MCHC (RBC) [Mass/Vol] 34.1 g/dL Normal 32-36 [facility] Comment on above: Performed By: #### L 100.0100, L500.2500 ####[facility] [address] [place], [address] MCV (RBC) [Entitic vol] 88.5 fL Normal 81-99 [facility] Comment on above: Performed By: #### L 100.0100, L500.2500 ####[facility] [address] [place], [address] Monocytes/100 WBC (Bld) 9.6 % Normal 0-10 [facility] Comment on above: Performed By: #### L 100.0100, L500.2500 ####[facility] [address] [place], [address] Neutrophils/100 WBC (Bld) 74.6 % High 47-70 [facility] Comment on above: Performed By: #### L 100.0100, L500.2500 ####[facility] [address] [place], [address] Nucleated RBC (Bld) [#/Vol] 0 10*3/uL Normal 0-5 [facility] Comment on above: Performed By: #### L 100.0100, L500.2500 ####[facility] [address] [place], [address] Platelet mean volume (Bld) [Entitic vol] 10.4 fL Normal 6.2-12.0 [facility] Comment on above: Performed By: #### L 100.0100, L500.2500 ####[facility] [address] [place], [address] Platelets (Bld) [#/Vol] 171 10*3/uL Normal 150-450 [facility] Comment on above: Performed By: #### L 100.0100, L500.2500 ####[facility] [address] [place], [address] RBC (Bld) [#/Vol] 2.88 10*6/uL Low 4.2-5.4 [facility] Comment on above: Performed By: #### L 100.0100, L500.2500 ####[facility] [address] [place], [address] RDW SD 42.8 fl Normal 35.1-43.9 [facility] Comment on above: Performed By: #### L 100.0100, L500.2500 ####[facility] [address] [place], [address] WBC (Bld) [#/Vol] 12.8 10*3/uL High 4.4-11.0 [facility] Comment on above: Performed By: #### L 100.0100, L500.2500 ####[facility] [address] [place], [address] MR/[id number] 04-15-2025 MR/POSTOPAN2 [facility] Medical Records Department [address] [place] [address] Anesthesia Postop Eval II 03/03/25904 MR#: [id number] Acct: [id number] Name: MICHAELA BRANDT Rep #: [id number] : 1940 84 From: Jim Vidales MD PCP: Dr. 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 Vomiting No 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 Anesthesia Postop Eval I: Fluid Summary Crystalloid volume administer 600 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 (ml) Colloids volume administered ( ml) Blood Product volume administered (ml) Total IV fluid infused 600 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 Anesthesia Postop Eval I: Summary Notes Anesthesia Complication No 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 Anesthesia Complication Comment: Post-operative progress note Anesthesia: Postop Eval II Evaluation Mental status: Awake and Calm Pain Level: 2 nausea: No Vomiting: No Complications Anesthesia Complication: No 03/03/25904 Jim Vidales MD Cosigner Signature: Date CC: Signed Normal [facility] Bilirubin, totalOrdered By: Roro Long on 03-02-2025 Bilirubin [Mass/Vol] 1.32 mg/dL High 0.00-1.30 [facility] CBC W/Diff, Automatedon 02-17 Absolute Lymph 1.50 X10 3/uL Normal 0.83-4.51 [facility] Comment on above: Performed By: #### L 100.0100, L501.9520, L501.2300, L501.5200, L500.4050 ####[facility] [address] [place], [address] Absolute Neut 9.9 X10 3/uL High 2.0-7.7 [facility] Comment on above: Performed By: #### L 100.0100, L501.9520, L501.2300, L501.5200, L500.4050 ####[facility] [address] [place], [address] Basophils/100 WBC (Bld) 0.4 % Normal 0-1 [facility] Comment on above: Performed By: #### L 100.0100, L501.9520, L501.2300, L501.5200, L500.4050 ####[facility] [address] [place], [address] Eosinophils/100 WBC (Bld) 0.9 % Normal 0-5 [facility] Comment on above: Performed By: #### L 100.0100, L501.9520, L501.2300, L501.5200, L500.4050 ####[facility] [address] [place], [address] Erythrocyte distribution width (RBC) [Ratio] 13.2 % Normal 11.6-14.6 [facility] Comment on above: Performed By: #### L 100.0100, L501.9520, L501.2300, L501.5200, L500.4050 ####[facility] [address] [place], [address] Hematocrit (Bld) [Volume fraction] 33.7 % Low 37-47 [facility] Comment on above: Performed By: #### L 100.0100, L501.9520, L501.2300, L501.5200, L500.4050 ####[facility] [address] [place], [address] Hemoglobin (Bld) [Mass/Vol] 11.6 g/dL Low 12.0-15.0 [facility] Comment on above: Performed By: #### L 100.0100, L501.9520, L501.2300, L501.5200, L500.4050 ####[facility] [address] [place], [address] IG% 0.900 Normal 0.0-0.9 [facility] Comment on above: Result Comment: IG% - Immature Granulocytes (promyelocytes, myelocytes and metamyelocytes) > 1% indicates that a LEFT SHIFT is Present. Performed By: #### L 100.0100, L501.9520, L501.2300, L501.5200, L500.4050 ####[facility] [address] [place], [address] Lymphocytes/100 WBC (Bld) 11.6 % Low 19-41 [facility] Comment on above: Performed By: #### L 100.0100, L501.9520, L501.2300, L501.5200, L500.4050 ####[facility] [address] [place], [address] MCH (RBC) [Entitic mass] 30.5 pg Normal 27.0-32.0 [facility] Comment on above: Performed By: #### L 100.0100, L501.9520, L501.2300, L501.5200, L500.4050 ####[facility] [address] [place], [address] MCHC (RBC) [Mass/Vol] 34.4 g/dL Normal 32-36 [facility] Comment on above: Performed By: #### L 100.0100, L501.9520, L501.2300, L501.5200, L500.4050 ####[facility] [address] [place], [address] MCV (RBC) [Entitic vol] 88.7 fL Normal 81-99 [facility] Comment on above: Performed By: #### L 100.0100, L501.9520, L501.2300, L501.5200, L500.4050 ####[facility] [address] [place], [address] Monocytes/100 WBC (Bld) 9.5 % Normal 0-10 [facility] Comment on above: Performed By: #### L 100.0100, L501.9520, L501.2300, L501.5200, L500.4050 ####[facility] [address] [place], [address] Neutrophils/100 WBC (Bld) 76.7 % High 47-70 [facility] Comment on above: Performed By: #### L 100.0100, L501.9520, L501.2300, L501.5200, L500.4050 ####[facility] [address] [place], [address] Nucleated RBC (Bld) [#/Vol] 0 10*3/uL Normal 0-5 [facility] Comment on above: Performed By: #### L 100.0100, L501.9520, L501.2300, L501.5200, L500.4050 ####[facility] [address] [place], [address] Platelet mean volume (Bld) [Entitic vol] 9.5 fL Normal 6.2-12.0 [facility] Comment on above: Performed By: #### L 100.0100, L501.9520, L501.2300, L501.5200, L500.4050 ####[facility] [address] [place], [address] Platelets (Bld) [#/Vol] 203 10*3/uL Normal 150-450 [facility] Comment on above: Performed By: #### L 100.0100, L501.9520, L501.2300, L501.5200, L500.4050 ####[facility] [address] [place], [address] RBC (Bld) [#/Vol] 3.80 10*6/uL Low 4.2-5.4 [facility] Comment on above: Performed By: #### L 100.0100, L501.9520, L501.2300, L501.5200, L500.4050 ####[facility] [address] [place], [address] RDW SD 42.8 fl Normal 35.1-43.9 [facility] Comment on above: Performed By: #### L 100.0100, L501.9520, L501.2300, L501.5200, L500.4050 ####[facility] [address] [place], [address] WBC (Bld) [#/Vol] 12.9 10*3/uL High 4.4-11.0 [facility] Comment on above: Performed By: #### L 100.0100, L501.9520, L501.2300, L501.5200, L500.4050 ####[facility] [address] [place], [address] Comprehensive Metabolic Prof njon 03-02-2025 Albumin [Mass/Vol] 3.7 g/dL Normal 3.4-4.8 [facility] Comment on above: Performed By: #### L 100.0100, L501.9520, L501.2300, L501.5200, L500.4050 ####[facility] [address] [place], [address] Albumin/Globulin [Mass ratio] 1.6 {ratio} Normal 0.9-2.4 [facility] Comment on above: Performed By: #### L 100.0100, L501.9520, L501.2300, L501.5200, L500.4050 ####[facility] [address] [place], [address] ALK PHOS 55 U/L Normal 35-104 [facility] Comment on above: Performed By: #### L 100.0100, L501.9520, L501.2300, L501.5200, L500.4050 ####[facility] [address] [place], [address] ALT [Catalytic activity/Vol] 11 U/L Normal <=34 [facility] Comment on above: Performed By: #### L 100.0100, L501.9520, L501.2300, L501.5200, L500.4050 ####[facility] [address] [place], [address] AST [Catalytic activity/Vol] 27 U/L Normal <=31 [facility] Comment on above: Performed By: #### L 100.0100, L501.9520, L501.2300, L501.5200, L500.4050 ####[facility] [address] [place], [address] Bilirubin [Mass/Vol] 1.32 mg/dL High 0.00-1.30 [facility] Comment on above: Performed By: #### L 100.0100, L501.9520, L501.2300, L501.5200, L500.4050 ####[facility] [address] [place], [address] BUN/CRE 15.4 RATIO Normal 10-20 [facility] Comment on above: Performed By: #### L 100.0100, L501.9520, L501.2300, L501.5200, L500.4050 ####[facility] [address] [place], [address] Calcium [Mass/Vol] 9.0 mg/dL Normal 7.6-11.0 [facility] Comment on above: Performed By: #### L 100.0100, L501.9520, L501.2300, L501.5200, L500.4050 ####[facility] [address] [place], [address] Chloride [Moles/Vol] 103 mmol/L Normal 98-108 [facility] Comment on above: Performed By: #### L 100.0100, L501.9520, L501.2300, L501.5200, L500.4050 ####[facility] [address] [place], [address] CO2 [Moles/Vol] 27.7 mmol/L Normal 21.0-32.0 [facility] Comment on above: Performed By: #### L 100.0100, L501.9520, L501.2300, L501.5200, L500.4050 ####[facility] [address] [place], [address] Creatinine [Mass/Vol] 1.06 mg/dL Normal 0.70-1.20 [facility] Comment on above: Performed By: #### L 100.0100, L501.9520, L501.2300, L501.5200, L500.4050 ####[facility] [address] [place], [address] ECRCL 31.45 ml/min Low 50-250 [facility] Comment on above: Performed By: #### L 100.0100, L501.9520, L501.2300, L501.5200, L500.4050 ####[facility] [address] [place], [address] GAP 9 Normal 5-15 [facility] Comment on above: Performed By: #### L 100.0100, L501.9520, L501.2300, L501.5200, L500.4050 ####[facility] [address] [place], [address] GFR/1.73 sq M.predicted among non-blacks MDRD (S/P/Bld) [Vol rate/Area] 52 mL/min/{1.73_m2} Low >60 [facility] Comment on above: Result Comment: mL/m in/1.73m2 CKD-EPI Creatinine Equation (2020) Performed By: #### L 100.0100, L501.9520, L501.2300, L501.5200, L500.4050 ####[facility] [address] [place], [address] Globulin (S) [Mass/Vol] 2.3 g/dL Normal 2.2-4.2 [facility] Comment on above: Performed By: #### L 100.0100, L501.9520, L501.2300, L501.5200, L500.4050 ####[facility] [address] [place], [address] Glucose [Mass/Vol] 109 mg/dL High 70-99 [facility] Comment on above: Performed By: #### L 100.0100, L501.9520, L501.2300, L501.5200, L500.4050 ####[facility] [address] [place], [address] Potassium [Moles/Vol] 4.0 mmol/L Normal 3.3-5.1 [facility] Comment on above: Performed By: #### L 100.0100, L501.9520, L501.2300, L501.5200, L500.4050 ####[facility] [address] [place], [address] Sodium [Moles/Vol] 140 mmol/L Normal 133-145 [facility] Comment on above: Performed By: #### L 100.0100, L501.9520, L501.2300, L501.5200, L500.4050 ####[facility] [address] [place], [address] T PROT 6.0 g/dL Normal 5.9-8.4 [facility] Comment on above: Performed By: #### L 100.0100, L501.9520, L501.2300, L501.5200, L500.4050 ####[facility] [address] [place], [address] Urea nitrogen [Mass/Vol] 16 mg/dL Normal 4-19 [facility] Comment on above: Performed By: #### L 100.0100, L501.9520, L501.2300, L501.5200, L500.4050 ####[facility] [address] [place], [address] Consultation - Orthopedicson 03-02-2025 Consultation - Orthopedics [facility] Medical Records Department [address] [place] [address] Consultation - Orthopedics 03/02/25 1100 MR#: [id number] Acct: [id number] Name: MICHAELA BRANDT Rep #: [id number] : 1940 84 From: Elijah Overton MD PCP: Dr. Dillan Santiago MD Status:ADM IN Location: [facility] [place] [id number] HPI Consult Data Date of Consult: 03/02/25 HPI Narrative Reason for Consultation: Left hip pain HPI Narrative: MICHAELA BRANDT, is a 84 F who presents with left hip pain. 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 Patient does have memory issues and is [...] and was the primary provider of information. [facility] Medical History Hypothyroidism Anxiety Dementia Self-catheterizes urinary [...] Room Air (more content not included)... Normal [facility] Electrocardiogram reportOrde red By: Grazyna Santizo on 03-02-2025 EKG study [facility] Cardiovascular Services [address] [place] [address] 12 Lead EKG 03/01/25 1232 MR#: [id number] Acct: [id number] Name: MICHAELA BRANDT Rep #:[id number] : 1940 84 From: Grazyna palmer MD Attending Dr: Dr. Allison Tran MD Status: ADM IN Ordering Dr: Guerrero Valerio DO Date: 0 03/01/25 Location: [facility] [place] Sex: F C Admitted: 03/01/25 Test Reason [...] ) Borderline ECG Confirmed by Grazyna Santizo ([id number]), assistant editor GABI PALOMARES ([id number]) on 51:19:11 PM Referred By: Confirmed By: Grazyna Santizo 03/02/25 1319 Date _ Grazyna Santizo MD CC: Dr. Dillan Santiago MD; Dr. Guerrero Valerio DO; Dr. Allison Tran MD ~ Signed [facility] Other Phone: Hip Min 2 Views (Portable)on 03-02-2025 Hip Min 2 Views (Portable) [facility] Imaging Services [address] [place], [place] [id number] Hip Min 2 Views (Portable) MR#: [id number] Acct: [id number] Name: MICHAELA BRANDT Rep #: [id number] : 1940 F 84 From: Crystal Sommer PCP: Dr. Dillan Santiago MD Status: ADM IN Study: Hip Min 2 Views (Portable) Date of Exam: 03/02 Exam# [id number] Ordering Dr: Elijah Overton MD PROCEDURE: HIP [...] evidence of fracture or loosening. Reading Location: [facility] CC: Dr. Dillan Santiago MD; Dr. Elijah Overton MD Bulk Mail Clerk: Signed Normal [facility] Hip Min 2 Views (Portable) [facility] Imaging Services [address] [place] [id number] Hip Min 2 Views (Portable) MR#: [id number] Acct: [id number] Name: MICHAELA BRANDT Rep #: [id number] : 1940 F 84 From: Felipe ramon MD PCP: Dr. Dillan Santiago MD Status: ADM IN Study: Hip Min 2 Views (Portable) Date of Exam: 03/02 Exam# [id number] Ordering Dr: Elijah Overton MD PROCEDURE: Intraoperative [...] left intertrochanteric fracture. Reading Location: [place] [address] CC: Dr. Dillan Santiago MD; Dr. Elijah Overton MD Bulk Mail Clerk: Signed Normal [facility] Laboratory - Chemistry and C hemistry - challengeOrdered By: Roro Long on 03-02-2025 AST [Catalytic activity/Vol] 27 U/L <32 [facility] MR/POSTOP.ANEon 03-02-2025 MR/POSTOP.[facility] Medical Records Department [address] [place] [address] Anesthesia Postop Eval I 03/02/25 1259 MR#: [id number] Acct: [id number] Name: MICHAELA BRANDT Rep #: [id number] : 1940 84 From: Joanna Delgado CRNA PCP: Dr. Dillan Santiago MD Status:ADM IN Y Race: C Location: [place] [address] Anesthesia: Postop Eval I Current Vital Signs [...] CRNA Cosigner Signature: Date CC: Signed Normal [facility] Magnesiumon 03-02-2025 Magnesium [Mass/Vol] 2.2 mg/dL Normal 1.5-2.2 [facility] Comment on above: Performed By: #### L 100.0100, L501.9520, L501.2300, L501.5200, L500.4050 ####[facility] [address] [place], [address] Magnesium (Unsp spec) [Mass/ Vol]Ordered By: Roro Long on 03-02-2025 Magnesium [Mass/Vol] 2.2 mg/dL 1.5-2.2 [facility] Magnesium measurement (mass/ volume)Ordered By: Roro Long on 03-02-2025 Magnesium (Unsp spec) [Mass/Vol] 2.2 mg/dL 1.5-2.2 [facility] Operative Reporton 5 Operative Report [facility] Medical Records Department [address] [facility] [place] [address] Operative Report 03/02/25 1100 MR#: [id number] Acct: [id number] Name: MICHAELA BRANDT Rep #: [id number] : 1940 84 From: Elijah Overton MD PCP: Dr. Dillan Santiago MD Status:ADM IN Location: [facility] [place] [id number] Operative Report (Standard) Operative Information Date of Procedure: 03/02/25 Pre-Operative Diagnosis: Left intertrochanteric hip fracture Post-Operative Diagnosis: Left intertrochanteric hip fracture Surgery/Procedure Performed: Left hip cephalomedullary nail judicial law clerk: No Type of Anesthesia: General RN Documented Start/Stop Times: Operation Date: 03/02/25 13:15 Case Time Into Pre-Op 03/02/25 10:50 Anesthesia Start 03/02/25 11:50 Into Room 03/02/25 11:50 Procedure Start 03/02/25 12:16 Procedure End 03/02/25 12:41 Procedure Start Time: 12:16 Procedure Stop Time: 12:41 Select all DRAINS/GRAFTS/IMPLANTS that apply: Implanted device Implanted device details: [place] gamma nail 3, 11 mm x 180 [...] the placement of the nail and a [place] short gamma 3 by 11 mm 125 degree hip nail was selected. The 12.5 mm reamer was then passed. The nail was then attached to the mail inserter and inserted into the intramedullary canal. The [...] Findings: S (more content not included)... Normal [facility] Phosphoruson 03-02-2025 Phosphate [Mass/Vol] 4.0 mg/dL Normal 2.7-4.5 [facility] Comment on above: Performed By: #### L 100.0100, L501.9520, L501.2300, L501.5200, L500.4050 ####[facility] [address] [place], [address] Serum globulin measurementOr dered By: Roro Long on 03-02-2025 Globulin (S) [Mass/Vol] 2.3 g/dL 2.2-4.2 [facility] Serum or plasma alanine tillman otransferase (ALT) measurementOrdered By: Roro Long on 03-02-2025 ALT [Catalytic activity/Vol] 11 U/L <35 [facility] Serum or plasma albumin thomas urement (mass/volume)Ordered By: Roro Long on 03-02-2025 Albumin [Mass/Vol] 3.7 g/dL 3.4-4.8 [facility] Serum or plasma albumin/glob ulin mass ratioOrdered By: Roro Long on 03-02-2025 Albumin/Globulin [Mass ratio] 1.6 {ratio} 0.9-2.4 [facility] Serum or plasma alkaline mariah sphatase measurementOrdered By: Roro Long on 03-02-2025 ALP [Catalytic activity/Vol] 55 U/L 35-104 [facility] Serum phosphorus measurement Ordered By: Roro Long on 03-02-2025 Phosphorus Level 4.0 mg/dL 2.7-4.5 [facility] TSH DL <= 0.005 mIU/L QnOrde red By: Roro Long on 03-02-2025 Thyroid Stimulating Hormone (TSH) 1.470 uIU/mL 0.300-4.200 [facility] TSH Qn 1.470 uIU/mL 0.300-4.200 [facility] Thyroid Stim Hormone (TSH)on 03-02-2025 TSH 1.470 uIU/mL Normal 0.300-4.200 [facility] Comment on above: Performed By: #### L 100.0100, L501.9520, L501.2300, L501.5200, L500.4050 ####[facility] [address] [place], [address] Total proteinOrdered By: Indu Long on 03-02-2025 Protein [Mass/Vol] 6.0 g/dL 5.9-8.4 [facility] 12 Lead EKGon 03-01-2025 12 Lead EKG [facility] Cardiovascular Services [address] [place] [address] 12 Lead EKG 03/01/25 1232 MR#: [id number] Acct: [id number] Name: MICHAELA BRANDT Rep #: [id number] : 1940 84 From: Grazyna Santizo MD Attending Dr: Dr. Allison Tran MD Status: AD M IN Ordering Dr: Guerrero Valerio DO Date: 03/01/25 Location: [facility] [place] Sex: F C Admitted: 03/01/25 Test Reason [...] ) Borderline ECG Confirmed by Grazyna Santizo ([id number]), assistant editor GABI PALOMARES ([id number]) on 03/02/2025 1:19:11 PM Referred By: Confirmed By: Grazyna Santizo 03/02/25 1319 Date Grazyna Santizo MD CC: Dr. Dillan Santiago MD; Dr. Guerrero Valerio DO; Dr. Allison Tran MD Signed Normal [facility] Absolute neutrophil countOrd ered By: Guerrero Valerio on 03-01-2025 Neutrophils (Bld) [#/Vol] 17.3 10*3/uL High 2.0-7.7 [facility] Activated partial thrombopla stin time (aPTT) in platelet poor plasma by coagulation aOrdered By: Guerrero Valerio on 03-01-2025 aPTT Coag (PPP) [Time] 25.8 s 24.1-36.2 [facility] Anion gap in Serum or Plasma Ordered By: Guerrero Valerio on 03-01-2025 Anion gap [Moles/Vol] 11 mmol/L - [facility] BUN/creatinine ratioOrdered By: Guerrero Valerio on 03-01-2025 Urea nitrogen/Creatinine [Mass ratio] 17.4 mg/mg - [facility] Basic Metabolic Profile (BMP )on 03-01-2025 BUN/CRE 17.4 RATIO Normal - [facility] Comment on above: Performed By: #### L 300.4310, L300.3900, BTS, L100.0100, L500.2500 ####[facility] [address] [place], [address] Calcium [Mass/Vol] 9.2 mg/dL Normal 7.6-11.0 [facility] Comment on above: Performed By: #### L 300.4310, L300.3900, BTS, L100.0100, L500.2500 ####[facility] [address] [place], [address] Chloride [Moles/Vol] 104 mmol/L Normal 98-108 [facility] Comment on above: Performed By: #### L 300.4310, L300.3900, BTS, L100.0100, L500.2500 ####[facility] [address] [place], [address] CO2 [Moles/Vol] 25.2 mmol/L Normal 21.0-32.0 [facility] Comment on above: Performed By: #### L 300.4310, L300.3900, BTS, L100.0100, L500.2500 ####[facility] [address] [place], [address] Creatinine [Mass/Vol] 0.90 mg/dL Normal 0.70-1.20 [facility] Comment on above: Performed By: #### L 300.4310, L300.3900, BTS, L100.0100, L500.2500 ####[facility] [address] [place], [address] ECRCL 37.62 ml/min Low 50-250 [facility] Comment on above: Performed By: #### L 300.4310, L300.3900, BTS, L100.0100, L500.2500 ####[facility] [address] [place], [address] GAP 11 Normal 5-15 [facility] Comment on above: Performed By: #### L 300.4310, L300.3900, BTS, L100.0100, L500.2500 ####[facility] [address] [place], [address] GFR/1.73 sq M.predicted among non-blacks MDRD (S/P/Bld) [Vol rate/Area] 63 mL/min/{1.73_m2} Normal >60 [facility] Comment on above: Result Comment: mL/m in/1.73m2 CKD-EPI Creatinine Equation (2020) Performed By: #### L 300.4310, L300.3900, BTS, L100.0100, L500.2500 ####[facility] [address] [place], [address] Glucose [Mass/Vol] 148 mg/dL High 70-99 [facility] Comment on above: Performed By: #### L 300.4310, L300.3900, BTS, L100.0100, L500.2500 ####[facility] [address] [place], [address] Potassium [Moles/Vol] 4.2 mmol/L Normal 3.3-5.1 [facility] Comment on above: Performed By: #### L 300.4310, L300.3900, BTS, L100.0100, L500.2500 ####[facility] [address] [place], [address] Sodium [Moles/Vol] 140 mmol/L Normal 133-145 [facility] Comment on above: Performed By: #### L 300.4310, L300.3900, BTS, L100.0100, L500.2500 ####[facility] [address] [place], [address] Urea nitrogen [Mass/Vol] 16 mg/dL Normal 4-19 [facility] Comment on above: Performed By: #### L 300.4310, L300.3900, BTS, L100.0100, L500.2500 ####[facility] [address] [place], [address] Basophil percentageOrdered B y: Guerrero Valerio on 03-01-2025 Basophils/100 WBC (Bld) 0.2 % 0-1 [facility] Brain/Head without Contrasto n 03-01-2025 Brain/Head without Contrast [facility] Imaging Services [address] [place] [address] Brain/Head without Contrast MR#: [id number] Acct: [id number] Name: MICHAELA BRANDT Rep #: [id number] : 1940 F 84 From: Janet Salas nd, MD PCP: Dr. Dillan Santiago MD Status: REG ER Study: Brain/Head without Contrast Date of Exam: 02/17 02/10 Exam# [id number] Ordering Dr: Guerrero Valerio DO EXAM: BRAIN/HEAD [...] ischemic changes and age-related changes. Reading Location: [facility] CC: Dr. Dillan Santiago MD; Dr. Guerrero Valerio DO Bulk Mail Clerk: Signed Normal [facility] CBC W/Diff, Automatedon 02-17 Absolute Lymph 0.63 X10 3/uL Low 0.83-4.51 [facility] Comment on above: Performed By: #### L 300.4310, L300.3900, BTS, L100.0100, L500.2500 ####[facility] [address] [place], [address] Absolute Neut 17.3 X10 3/uL High 2.0-7.7 [facility] Comment on above: Performed By: #### L 300.4310, L300.3900, BTS, L100.0100, L500.2500 ####[facility] [address] [place], [address] Basophils/100 WBC (Bld) 0.2 % Normal 0-1 [facility] Comment on above: Performed By: #### L 300.4310, L300.3900, BTS, L100.0100, L500.2500 ####[facility] [address] [place], [address] Eosinophils/100 WBC (Bld) 0.0 % Normal 0-5 [facility] Comment on above: Performed By: #### L 300.4310, L300.3900, BTS, L100.0100, L500.2500 ####[facility] [address] [place], [address] Erythrocyte distribution width (RBC) [Ratio] 12.9 % Normal 11.6-14.6 [facility] Comment on above: Performed By: #### L 300.4310, L300.3900, BTS, L100.0100, L500.2500 ####[facility] [address] [place], [address] Hematocrit (Bld) [Volume fraction] 37.3 % Normal 37-47 [facility] Comment on above: Performed By: #### L 300.4310, L300.3900, BTS, L100.0100, L500.2500 ####[facility] [address] [place], [address] Hemoglobin (Bld) [Mass/Vol] 13.0 g/dL Normal 12.0-15.0 [facility] Comment on above: Performed By: #### L 300.4310, L300.3900, BTS, L100.0100, L500.2500 ####[facility] [address] [place], [address] IG% 0.600 Normal 0.0-0.9 [facility] Comment on above: Result Comment: IG% - Immature Granulocytes (promyelocytes, myelocytes and metamyelocytes) > 1% indicates that a LEFT SHIFT is Present. Performed By: #### L 300.4310, L300.3900, BTS, L100.0100, L500.2500 ####[facility] [address] [place], [address] Lymphocytes/100 WBC (Bld) 3.3 % Low 19-41 [facility] Comment on above: Performed By: #### L 300.4310, L300.3900, BTS, L100.0100, L500.2500 ####[facility] [address] [place], [address] MCH (RBC) [Entitic mass] 30.4 pg Normal 27.0-32.0 [facility] Comment on above: Performed By: #### L 300.4310, L300.3900, BTS, L100.0100, L500.2500 ####[facility] [address] [place], [address] MCHC (RBC) [Mass/Vol] 34.9 g/dL Normal 32-36 [facility] Comment on above: Performed By: #### L 300.4310, L300.3900, BTS, L100.0100, L500.2500 ####[facility] [address] [place], [address] MCV (RBC) [Entitic vol] 87.1 fL Normal 81-99 [facility] Comment on above: Performed By: #### L 300.4310, L300.3900, BTS, L100.0100, L500.2500 ####[facility] [address] [place], [address] Monocytes/100 WBC (Bld) 3.8 % Normal 0-10 [facility] Comment on above: Performed By: #### L 300.4310, L300.3900, BTS, L100.0100, L500.2500 ####[facility] [address] [place], [address] Neutrophils/100 WBC (Bld) 92.1 % High 47-70 [facility] Comment on above: Performed By: #### L 300.4310, L300.3900, BTS, L100.0100, L500.2500 ####[facility] [address] [place], [address] Nucleated RBC (Bld) [#/Vol] 0 10*3/uL Normal 0-5 [facility] Comment on above: Performed By: #### L 300.4310, L300.3900, BTS, L100.0100, L500.2500 ####[facility] [address] [place], [address] Platelet mean volume (Bld) [Entitic vol] 10.3 fL Normal 6.2-12.0 [facility] Comment on above: Performed By: #### L 300.4310, L300.3900, BTS, L100.0100, L500.2500 ####[facility] [address] [place], [address] Platelets (Bld) [#/Vol] 239 10*3/uL Normal 150-450 [facility] Comment on above: Performed By: #### L 300.4310, L300.3900, BTS, L100.0100, L500.2500 ####[facility] [address] [place], [address] RBC (Bld) [#/Vol] 4.28 10*6/uL Normal 4.2-5.4 [facility] Comment on above: Performed By: #### L 300.4310, L300.3900, BTS, L100.0100, L500.2500 ####[facility] [address] [place], [address] RDW SD 40.5 fl Normal 35.1-43.9 [facility] Comment on above: Performed By: #### L 300.4310, L300.3900, BTS, L100.0100, L500.2500 ####[facility] [address] [place], [address] WBC (Bld) [#/Vol] 18.8 10*3/uL High 4.4-11.0 [facility] Comment on above: Performed By: #### L 300.4310, L300.3900, BTS, L100.0100, L500.2500 ####[facility] [address] [place], [address] Carbon dioxide, total [Moles /volume] in Central venous bloodOrdered By: Guerrero Valerio on 03-01-2025 CO2 [Moles/Vol] 25.2 mmol/L 21.0-32.0 [facility] Chest 1 View (Portable)on Chest 1 View (Portable) [facility] Imaging Services [address] [place] [address] Chest 1 View (Portable) MR#: [id number] Acct: [id number] Name: MICHAELA BRANDT Rep #: [id number] : 1940 F 84 From: Janet Salas nd, MD PCP: Dr. Dillan Santiago MD Status: ADM IN Study: Chest 1 View (Portable) Date of Exam: 03/01/25 Exam# [id number] Ordering Dr: Roro Long DO PROCEDURE: CHEST [...] IMPRESSION: Emphysema/fibrosis. No acute findings. Reading Location: [id number] CC: Dr. Dillan Santiago MD; Dr. Roro Long DO Bulk Mail Clerk: Signed Normal [facility] Chloride assayOrdered By: Christophe Valerio on 03-01-2025 Chloride [Moles/Vol] 104 mmol/L 98-108 [facility] Comprehensive Metabolic Prof ilon 03-01-2025 ALB Normal 3.4-4.8 [facility] Comment on above: Result Comment: PER KAMLA IN MS3 WANTS TO CANCEL CMP. PT WILL HAVE MORNING LABS THEN. Performed By: #### L 500.4050 ####[facility] [address] [place] [id number] ALK PHOS Normal 35-104 [facility] Comment on above: Result Comment: PER KAMLA IN MS3 WANTS TO CANCEL CMP. PT WILL HAVE MORNING LABS THEN. Performed By: #### L 500.4050 ####[facility] [address] [place] [id number] ALT Normal <=34 [facility] Comment on above: Result Comment: PER KAMLA IN MS3 WANTS TO CANCEL CMP. PT WILL HAVE MORNING LABS THEN. Performed By: #### L 500.4050 ####[facility] [address] [facility] [address] AST Normal <=31 [facility] Comment on above: Result Comment: PER KAMLA IN MS3 WANTS TO CANCEL CMP. PT WILL HAVE MORNING LABS THEN. Performed By: #### L 500.4050 ####[facility] [address] [place], [address] BUN Normal 4-19 [facility] Comment on above: Result Comment: PER KAMLA IN MS3 WANTS TO CANCEL CMP. PT WILL HAVE MORNING LABS THEN. Performed By: #### L 500.4050 ####[facility] [address] [place], [address] BUN/CRE Normal 10-20 [facility] [facility] Comment on above: Result Comment: PER KAMLA IN MS3 WANTS TO CANCEL CMP. PT WILL HAVE MORNING LABS THEN. Performed By: #### L 500.4050 ####[facility] [address] [place], [address] Calcium Normal 7.6-11.0 [facility] Comment on above: Result Comment: PER KAMLA IN MS3 WANTS TO CANCEL CMP. PT WILL HAVE MORNING LABS THEN. Performed By: #### L 500.4050 ####[facility] [address] [place], [address] CL Normal 98-108 [facility] Comment on above: Result Comment: PER KAMLA IN MS3 WANTS TO CANCEL CMP. PT WILL HAVE MORNING LABS THEN. Performed By: #### L 500.4050 ####[facility] [address] [place], [address] CO2 Normal 21.0-32.0 [facility] Comment on above: Result Comment: PER KAMLA IN MS3 WANTS TO CANCEL CMP. PT WILL HAVE MORNING LABS THEN. Performed By: #### L 500.4050 ####[facility] [address] [place], [address] CREAT,SERUM Normal 0.70-1.20 [facility] Comment on above: Result Comment: PER KAMLA IN MS3 WANTS TO CANCEL CMP. PT WILL HAVE MORNING LABS THEN. Performed By: #### L 500.4050 ####[facility] [address] [place], [address] eGFR Normal >60 [facility] Comment on above: Result Comment: PER KAMLA IN MS3 WANTS TO CANCEL CMP. PT WILL HAVE MORNING LABS THEN. Performed By: #### L 500.4050 ####[facility] [address] [place], [address] GAP Normal 5-15 [facility] Comment on above: Result Comment: PER KAMLA IN MS3 WANTS TO CANCEL CMP. PT WILL HAVE MORNING LABS THEN. Performed By: #### L 500.4050 ####[facility] [address] [place], [address] GLU Normal 70-99 [facility] Comment on above: Result Comment: PER KAMLA IN MS3 WANTS TO CANCEL CMP. PT WILL HAVE MORNING LABS THEN. Performed By: #### L 500.4050 ####[facility] [address] [place], [address] Potassium Normal 3.3-5.1 [facility] Comment on above: Result Comment: PER KAMLA IN MS3 WANTS TO CANCEL CMP. PT WILL HAVE MORNING LABS THEN. Performed By: #### L 500.4050 ####[facility] [address] [place], [address] T BILI Normal 0.00-1.30 [facility] Comment on above: Result Comment: PER KAMLA IN MS3 WANTS TO CANCEL CMP. PT WILL HAVE MORNING LABS THEN. Performed By: #### L 500.4050 ####[facility] [address] [place], [address] T PROT Normal 5.9-8.4 [facility] Comment on above: Result Comment: PER KAMLA IN MS3 WANTS TO CANCEL CMP. PT WILL HAVE MORNING LABS THEN. Performed By: #### L 500.4050 ####[facility] [address] [place], [address] Comprehensive Metabolic Profil Normal 133-145 [facility] Comment on above: Result Comment: JOSELIN CASON IN MS3 WANTS TO CANCEL CMP. PT WILL HAVE MORNING LABS THEN. Performed By: #### L 500.4050 ####[facility] [address] [place], [address] Emergency Department Summary on 03-01-2025 Emergency Department Summary [facility] Medical Records Department [address] [place] [address] Emergency Department Summary 03/01/25 MR#: [id number] Acct: [id number] Name: MICHAELA BRANDT Rep #: [id number] : 1940 84 From: Guerrero Valerio DO PCP: Dr. Dillan Santiago MD Status:ADM IN Location: MS3 [id number] HPI HPI - Fall History of Present [...] not. That was apparently in 2014 in [facility]. Patient reportedly just moved to the area. She denies any other injuries. She states that she cannot really move the knee. Patient is very tearful upset about bothering her children and over her late . There is a report of the degree of dementia that is reported to me. [facility] Medical History (Updated 03/01/25 @ 13:47 by [...] Medical d (more content not included)... Normal [facility] Eosinophil percentageOrdered By: Guerrero Valerio on 03-01-2025 Eosinophils/100 WBC (Bld) 0.0 % 0-5 [facility] Erythrocyte distribution wid th (RBC) [Ratio]Ordered By: Guerrero Valerio on 03-01-2025 Erythrocyte distribution width (RBC) [Entitic vol] 40.5 fL 35.1-43.9 [facility] Erythrocyte distribution wid th ratioOrdered By: Guerrero Valerio on 03-01-2025 Erythrocyte distribution width (RBC) [Ratio] 12.9 % 11.6-14.6 [facility] Estimation of creatinine winston aranceOrdered By: Guerrero Valerio on 03-01-2025 Estimated Creatinine Clearance Calc 37.62 ml/min Low 50-250 [facility] Extremity Lower without Cont raon 03-01-2025 Extremity Lower without Contra [facility] [address] [place] [address] Extremity Lower without Contra MR#: [id number] Acct: [id number] Name: MICHAELA BRANDT Rep #: [id number] : 1940 F 84 From: Janet Salas nd, MD PCP: Dr. Dillan Santiago MD Status: REG ER Study: Extremity Lower without Contra Date of Exam: 0 03/01/25 Exam# [id number] Ordering Dr: Guerrero Valerio DO PROCEDURE: EXTREMITY [...] lucency and probable nutrient channel. Reading Location: [facility] CC: Dr. Dillan Santiago MD; Dr. Guerrero Valerio DO Bulk Mail Clerk: Signed Normal [facility] GFR/1.73 sq M.predicted arti g non-blacks MDRD (S/P/Bld) [Vol rate/Area]Ordered By: Gurerero Valerio on 03-01-2025 Estimated GFR (MDRD) Non-Af Amer 63 >60 [facility] Comment on above: mL/min/1.73m2 CKD-EP I Creatinine Equation (2020) H AND P Exam - Hospitaliston 03-01-2025 H&P Exam - Hospitalist [facility] Medical Records Department [address] [facility] [place] [address] H P Exam - Hospitalist 03/01/25 1345 MR#: [id number] Acct: [id number] Name: MICHAELA BRANDT Rep #: [id number] : 1940 84 From: Roro Long DO PCP: Dr. Dillan Santiago MD Status:ADM IN Location: [facility] BE715-2 HPI - General General Date of Admission: 03/01/25 Date of Service: 03/01/25 Chief Complaint: L hip pain after mechanical fall HPI Narrative MICHAELA BRANDT, is a 84 F who presented to the emergency department at [facility] on 03/01/2025 with a chief complaint [...] admitted with an expected 2 midnight stay. [facility] Medical History Hypothyroidism Anxiety Dementia Self-catheterizes urinary [...] swelling; Denies (more content not included)... Normal [facility] HIP, UNI W/ Pelvis 2-3 Views on 03-01-2025 HIP, UNI W/ Pelvis 2-3 Views [facility] [address] [place], [place] [address] HIP, UNI W/ Pelvis 2-3 Views MR#: [id number] Acct: [id number] Name: MICHAELA BRANDT Rep #: [id number] : 1940 F 84 From: Janet Salas nd, MD PCP: Dr. Dillan Santiago MD Status: REG ER Study: HIP, UNI W/ Pelvis 2-3 Views Date of Exam: Exam# [id number] Ordering Dr: Guerrero Valerio DO PROCEDURE: HIP, [...] fracture of the left femur. Reading Location: [facility] CC: Dr. Dillan Santiago MD; Dr. Guerrero Valerio DO Bulk Mail Clerk: Signed Normal [facility] Hematocrit Auto (Bld) [Volum e fraction]Ordered By: Guerrero Valerio on 03-01-2025 Hematocrit (Bld) [Volume fraction] 37.3 % 37-47 [facility] Hemoglobin measurementOrdere d By: Guerrero Valerio on 03-01-2025 Hemoglobin (Bld) [Mass/Vol] 13.0 g/dL 12.0-15.0 [facility] Immature granulocytes/100 WB C Auto (Bld)Ordered By: Guerrero Valerio on 03-01-2025 Immature granulocytes/100 WBC (Bld) 0.600 % 0.0-0.9 [facility] Comment on above: IG% - Immature Granu locytes (promyelocytes, myelocytes and metamyelocytes) > 1% indicates that a LEFT SHIFT is Present. International normalized rat io (INR) calculationOrdered By: Guerrero Valerio on 03-01-2025 INR Coag (Bld) [Relative time] 1.1 {INR} [facility] Knee 1 or 2 Viewson 03-01-20 Knee 1 or 2 Views [facility] [address] [place] [address] Knee 1 or 2 Views MR#: [id number] Acct: [id number] Name: MICHAELA BRANDT Rep #: [id number] : 1940 F 84 From: Janet Salas nd, MD PCP: Dr. Dillan Santiago MD Status: REG ER Study: Knee 1 or 2 Views Date of Exam: 03/01/25 Exam# [id number] Ordering Dr: Guerrero Valerio DO ADDENDUM by Dr. Janet Rabago MD on 03/01/25 at 1310 No acute osseous fracture seen on same day CT of the left knee. The previously visualized osseous fragment along the distal lateral left femoral condyle is secondary to diffuse bone lucency and probable nutrient channel. Reading Location: [id number] 03/01/25 1311 Date cc: Dr. Dillan Santiago [...] the left lateral femoral condyle. Reading Location: [facility] CC: Dr. Dillan Santiago MD; Dr. Guerrero Valerio DO Bulk Mail Clerk: Signed Normal [facility] Lymphocytes Auto (Unsp spec) [#/Vol]Ordered By: Guerrero Valerio on 03-01-2025 Lymphocytes (Bld) [#/Vol] 0.63 10*3/uL Low 0.83-4.51 [facility] Lymphocytes/100 WBC Auto (Un sp spec)Ordered By: Guerrero Valerio on 03-01-2025 Lymphocytes/100 WBC (Bld) 3.3 % Low 19-41 [facility] MCV (mean corpuscular volume ) determinationOrdered By: Guerrero Valerio on 03-01-2025 MCV (RBC) [Entitic vol] 87.1 fL 81-99 [facility] Mean corpuscular hemoglobin (MCH) determinationOrdered By: Guerrero Valerio on 03-01-2025 MCH (RBC) [Entitic mass] 30.4 pg 27.0-32.0 [facility] Mean corpuscular hemoglobin concentration (MCHC) determinationOrdered By: Guerrero Valerio on 03-01-2025 MCHC (RBC) [Mass/Vol] 34.9 g/dL 32-36 [facility] Mean platelet volume determi nationOrdered By: Guerrero Valerio on 03-01-2025 Platelet mean volume (Bld) [Entitic vol] 10.3 fL 6.2-12.0 [facility] Monocyte percentageOrdered B y: Guerrero Valerio on 03-01-2025 Monocytes/100 WBC (Bld) 3.8 % 0-10 [facility] Neutrophil percentageOrdered By: Guerrero Valerio on 03-01-2025 Neutrophils/100 WBC (Bld) 92.1 % High 47-70 [facility] Nucleated red blood cell per centageOrdered By: Guerrero Valerio on 03-01-2025 Nucleated RBC/100 WBC (Bld) [Ratio] 0 % 0-5 [facility] Partial Thromboplast Timeon 03-01-2025 aPTT Coag (Bld) [Time] 25.8 s Normal 24.1-36.2 [facility] Comment on above: Performed By: #### L 300.4310, L300.3900, BTS, L100.0100, L500.2500 ####[facility] [address] [place], [address] Platelet countOrdered By: Christophe Valerio on 03-01-2025 Platelets (Bld) [#/Vol] 239 10*3/uL 150-450 [facility] Potassium (Unsp spec) [Mass/ Vol]Ordered By: Guerrero Valerio on 03-01-2025 Potassium [Moles/Vol] 4.2 mmol/L 3.3-5.1 [facility] Prothrombin Time w/INRon INR Coag (PPP) [Relative time] 1.1 {INR} Normal [facility] Comment on above: Performed By: #### L 300.4310, L300.3900, BTS, L100.0100, L500.2500 ####[facility] [address] [place], [address] PT Coag (PPP) [Time] 14.9 s Normal 11.7-14.9 [facility] Comment on above: Performed By: #### L 300.4310, L300.3900, BTS, L100.0100, L500.2500 ####[facility] [address] [place], [address] Prothrombin timeOrdered By: Guerrero Valerio on 03-01-2025 PT Coag (PPP) [Time] 14.9 s 11.7-14.9 [facility] RBC Auto (Bld) [#/Vol]Ordere d By: Guerrero Valerio on 03-01-2025 RBC (Bld) [#/Vol] 4.28 10*6/uL 4.2-5.4 [facility] Serum creatinine measurement (mass/volume)Ordered By: Guerrero Valerio on 03-01-2025 Creatinine [Mass/Vol] 0.90 mg/dL 0.70-1.20 [facility] Serum glucose measurement (m ass/volume)Ordered By: Guerrero Valerio on 03-01-2025 Glucose [Mass/Vol] 148 mg/dL High 70-99 [facility] Serum or plasma calcium thomas urement (mass/volume)Ordered By: Guerrero Valerio on 03-01-2025 Calcium [Mass/Vol] 9.2 mg/dL 7.6-11.0 [facility] Serum or plasma urea nitroge n measurement (mass/volume)Ordered By: Guerrero Valerio on 03-01-2025 Urea nitrogen [Mass/Vol] 16 mg/dL 4-19 [facility] Sodium levelOrdered By: Liborio Valerio on 03-01-2025 Sodium [Moles/Vol] 140 mmol/L 133-145 [facility] Type AND Screenon 03-01-2025 Ab SCREEN GEL Negative Normal [facility] Comment on above: Order Comment: S Performed By: #### L 300.4310, L300.3900, BTS, L100.0100, L500.2500 ####[facility] [address] [place], [address] Vitamin D, 25-hydroxyOrdered By: Roro Long on 03-01-2025 Vitamin D 25-Hydroxy 29.9 ng/mL Low 30-100 [facility] Comment on above: Vitamin D StatusDefi ciency: <20 ng/mL (50nmol/L)Insufficiency: 20-30 ng/mL (50-75 nmol/L)Sufficiency: 30-100 ng/mL (75-250 nmol/L)Toxicity: >100 ng/mL (>250 nmol/L) Vitamin D,25 Hydroxyon 03-01 Vitamin D 25-OH 29.9 ng/mL Low 30-100 [facility] Comment on above: Result Comment: Vaishnavi min D Status Deficiency: <20 ng/mL (50nmol/L) Insufficiency: 20-30 ng/mL (50-75 nmol/L) Sufficiency: 30-100 ng/mL (75-250 nmol/L) Toxicity: >100 ng/mL (>250 nmol/L) Performed By: #### L 506.1001 ####[facility] [address] [place], [address] White blood cell (WBC) count Ordered By: Guerrero Valerio on 03-01-2025 WBC (Bld) [#/Vol] 18.8 10*3/uL High 4.4-11.0 [facility] aPTT Coag (PPP) [Time]Ordere d By: Guerrero Valerio on 03-01-2025 aPTT Coag (Bld) [Time] 25.8 s 24.1-36.2 [facility] CNPNon 02-27-2025 CNPN Telephone (MOODY) MICHAELA BRANDT ([id number]) 1940 F Date Time Provider Department 02/27/25 [...] that her mother is currently living on [address] Stahl is concerned about mother living [...] discussed different local memory care options ie. [place], [facility], [facility], [facility]. Maribeth notes that her mom was not interested in any place that looks like a usp. Discussed the different options above and layout and levels of care they offer. 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 looking at level of care memory [...] Status:Closed by KENTRELL MONTGOMERY on 03/02/25 Normal [facility] Bacteria Ur Culton Bacteria identified Cx [...] , Intermediate >32 , Resistant >64 Abnormal [facility] Comment on above: Performed By: #### 6 30-4 ####[facility] LABCLIA [id number] [address] [place] CNOVon 02-19-2025 CNOV Office Visit (UCWSTR ) MICHAELA BRANDT ([id number]) 1940 F Date Time Provider Department 02/19/25 11:30 AM [facility] During your visit today, we recorded the following information about you: Temperature Pulse Respiration Blood pressure 98.7 degrees 70/minute 22/minute 145/79 Weight 57 kg Walt Robles APRN.DOUBLE SPINDLE SHAPER OPERATOR 02/19/2025 12:00 PM Signed [facility] [...] history is provided by the patient. No pediatric speech language pathologist was used. Review of Systems Constitutional: Negative. [...] be changed please change accordingly. Walt Robles APRN.DOUBLE SPINDLE SHAPER OPERATOR MDM Procedures Allergies As of Date: 02/19/2025 (No Known Allergies) Date Reviewed: 02/19/2025 Reviewed by: Carolina Hastings LPN - Fully Assessed Reason for Visit: Urinary Problem [252] Cmt: Brain fog, 1 day Primary Visit Diagnosis:Recurrent UTI (urinary tract infection) [N39.0] Order(s):UA DIP, URINE (POC) [7203663] Order #: [id number]. #:[id number] cephALEXin (KEFLEX) 500 mg capsuleTake 1 capsule [...] mg (more content not included)... [facility] ([facility]) MICHAELA BRANDT ([id number]) 1940 F Date Time Provider Department 02/19/25 [facility] During your visit today, we recorded the following information about you: Walt Robles APRN.DOUBLE SPINDLE SHAPER OPERATOR 02/19/2025 3:04 PM Signed Please call patient [...] [R35.0] Order(s):BACTERIAL CULTURE, URINE [SQURCUL] Order #: [id number] Prescriptions as of 02/19/2025 - cephALEXin (KEFLEX) [...] Status:Closed by COLTEN GREER on 02/19/25 Normal [facility] UA DIP, URINE (POC)on 2024 BILIRUBIN UA (POCT) Negative Negative [facility] CLARITY UA (POCT) Clear [facility] COLOR UA (POCT) Dark yellow [facility] GLUCOSE UA (POCT) Negative Negative mg/dL [facility] Hemoglobin Ql (U) Trace-intact Abnormal Negative [facility] Interpretation and review of laboratory results Abnormal [facility] KETONE UA (POCT) Negative Negative mg/dL [facility] LEUKOCYTES UA (POCT) Trace Abnormal Negative [facility] NITRITE UA (POCT) Positive Abnormal Negative [facility] PH UA (POCT) 5.5 4.5 - 8.0 [facility] Protein Ql (U) Negative Negative mg/dL [facility] SPECIFIC GRAVITY UA (POCT) 1.025 1.005 - 1.030 [facility] UROBILINOGEN UA (POCT) 1 Supriya l E.U./dL [facility] Location:[address], [place], [place], [address] [place] [address] POINT OF CARE [facility] CNOVon 02-18-2025 CNOV Office Visit (INTMWS ) MICHAELA BRANDT ([id number]) 1940 F Date Time Provider Department 02/18/25 10:20 AM MARIPOSA SALINAS INTMAKOSUA During your visit today, we recorded the following information about you: Pulse Respiration Blood pressure Weight 74/minute 16/minute 122/80 57.6 kg Mariposa Salinas APRN.[facility] 02/18/2025 4:19 PM Signed CC: Patient [...] Patient agreeable to treatment plan. Mariposa Salinas APRN.DOUBLE SPINDLE SHAPER OPERATOR Medical Decision Making: Problems: Minimal: Self-limited or [...] of rig (more content not included)... Normal [facility] TSH SerPl-aCncon 02-17-2025 TSH Qn 1.190 m[IU]/L Normal 0.270-4.200 [facility] Comment on above: Order Comment: Speci men Type: BLOOD SPECIMENOrdering Facility: [facility] Address: [address] [place] [address] Performed By: #### 3 016-3 ####[facility] LABCLIA [id number] [address] [facility] CNOVmary 02-04-2025 CNOV Office Visit (JOHNSONR ) MICHAELA BRANDT ([id number]) 1940 F Date Time Provider Department 02/04/25 [...] NECK: Suppl (more content not included)... Normal [facility] MR Brain WO contraston 03-08 -2025 * * *Final Report* * * DATE OF EXAM: Jan 24 2025 2:05PM [facility] 3015 - MRI BRAIN W QUANT WO IVCON / PROCEDURE REASON: Cognitive impairment, mild, so stated * * * * Physician Interpretation * * * * EXAMINATION: MRI 3D BRAIN QUANT, MRI BRAIN W QUANT WO IVCON CLINICAL HISTORY: TECHNIQUE: Axial IRSEAL FLAIR, ISREAL T2, diffusion and susceptibility weighted imaging without contrast, using the ADNI dementia protocol and 3-D post-processing using the Rivalry software at an independent workstation with concurrent [...] to 1.7; Will 2008; also Balbir 2010). [facility] Provider, [facility] - 01/24/2025 * * *Final Report* * * DATE OF EXAM: Jan 24 2025 2:05PM [facility] 3015 - MRI BRAIN W QUANT WO IVCON / PROCEDURE REASON: Cognitive impairment, mild, so stated * * * * Physician Interpretation * * * * EXAMINATION: MRI 3D BRAIN QUANT, MRI BRAIN W QUANT WO IVCON CLINICAL HISTORY: TECHNIQUE: Axial ISREAL FLAIR, ISREAL T2, diffusion and susceptibility weighted imaging without contrast, using the ADNI dementia protocol and 3-D post-processing using the regrob.comQuant software at an independent workstation with concurrent [...] = Focal Lesions 2 = Beginning of [place] 3 = Diffuse Involvement of Entire Region [...] 100] (%). Age-matched (more content not included)... [facility] MR Unspecified body region 3 D post processingon 01-24-2025 * * *Final Report* * * DATE OF EXAM: Jan 24 2025 2:05PM [facility] 7867 - MRI 3D BRAIN QUANT / PROCEDURE REASON: Cognitive impairment, mild, so stated * * * * Physician Interpretation * * * * EXAMINATION: MRI 3D BRAIN QUANT, MRI BRAIN W QUANT WO IVCON CLINICAL HISTORY: TECHNIQUE: Axial ISREAL FLAIR, ISREAL T2, diffusion and susceptibility weighted imaging without contrast, using the ADNI dementia protocol and 3-D post-processing using the Rivalry software at an independent workstation with concurrent [...] to 1.7; Will 2008; also Balbir 2010). [facility] Provider, [facility] - 01/24/2025 * * *Final Report* * * DATE OF EXAM: Jan 24 2025 2:05PM [facility] 7867 - MRI 3D BRAIN QUANT / [...] = Focal Lesions 2 = Beginning of [place] 3 = Diffuse Involvement of Entire Region [...] (%). Age-matched referenc (more content not included)... [facility] MRI 3D BRAIN QUANTon 025 MRI 3D BRAIN QUANT * * *Final Report* * * DATE OF EXAM: Jan 24 2025 2:05PM [facility] 7867 - MRI 3D BRAIN QUANT / PROCEDURE REASON: Cognitive impairment, mild, so stated * * * * Physician Interpretation * * * * EXAMINATION: MRI 3D BRAIN QUANT, MRI BRAIN W QUANT WO IVCON CLINICAL HISTORY: TECHNIQUE: Axial ISREAL FLAIR, ISREAL T2, diffusion and susceptibility weighted imaging without contrast, using the ADNI dementia protocol and 3-D post-processing using the Rivalry software at an independent workstation with concurrent [...] = Focal Lesions 2 = Beginning of [place] 3 = Diffuse Involvement of Entire Region [...] results from the analysis charts for details. Bulk Mail Clerk: MINDY Transcribe Date/Time: Jan 24 (more content not included)... [facility] MRI BRAIN W QUANT WO IVCONon 01-24-2025 MRI BRAIN W QUANT WO IVCON * * *Final Report* * * DATE OF EXAM: Jan 24 2025 2:05PM [facility] 3015 - MRI BRAIN W QUANT WO IVCON / PROCEDURE REASON: Cognitive impairment, mild, so stated * * * * Physician Interpretation * * * * EXAMINATION: MRI 3D BRAIN QUANT, MRI BRAIN W QUANT WO IVCON CLINICAL HISTORY: TECHNIQUE: Axial ISREAL FLAIR, ISREAL T2, diffusion and susceptibility weighted imaging without contrast, using the ADNI dementia protocol and 3-D post-processing using the Rivalry software at an independent workstation with concurrent [...] = Focal Lesions 2 = Beginning of [place] 3 = Diffuse Involvement of Entire Region [...] results from the analysis charts for details. Bulk Mail Clerk: PSCB Transcribe Date/Time (more content not included)... Normal [facility] No Panel Informationon 01-24 IMPRESSION: [...] = Focal Lesions 2 = Beginning of [place] 3 = Diffuse Involvement of Entire Region [...] results from the analysis charts for details. Bulk Mail Clerk: MINDY Transcribe Date/Time: Jan 24 2025 2:14P Dictated by : PUJA KIM MD This examination was interpreted and the report reviewed and electronically signed by: PUJA KIM MD on Jan 24 2025 2:29PM [facility] Radiology Study observation (narrative) [place] laws [facility] No Panel InformationOrdered By: [facility] Provider on 01-24-2025 [facility] Urine Cultureon 01-19-2025 [facility] Klebsiella pneumonia e sp pneum [place] Count >100,000 Klebsiella pneumoniae sp pneum: REACTION [...] TMP SMX Islt [place] <=20 S Normal [facility] Comment on above: Performed By: #### M 100.2200 ####[facility] [address] [place], [address] Absolute lymphocyte countOrd ered By: Dominik Galvan on 01-17-2025 Lymphocytes Auto (Unsp spec) [#/Vol] 1.42 10*3/uL 0.83-4.51 [facility] Absolute neutrophil countOrd ered By: Dominik Galvan on 01-17-2025 Neutrophils (Bld) [#/Vol] 10.3 10*3/uL High 2.0-7.7 [facility] Amorphous sediment detection in urine sediment by light microscopyOrdered By: Dominik Galvan on 01-17-2025 Amorphous sediment LM Ql (Urine sed) 1+ URATE [facility] Automated lymphocyte count a s percentage of total leukocytesOrdered By: Dominik Galvan on 01-17-2025 Lymphocytes/100 WBC Auto (Unsp spec) 11.0 % Low 19-41 [facility] BUN/creatinine ratioOrdered By: Dominik Galvan on 01-17-2025 Urea nitrogen/Creatinine [Mass ratio] 20.5 mg/mg High 10-20 [facility] Basophil percentageOrdered B y: Dominik Galvan on 01-17-2025 Basophils/100 WBC (Bld) 0.4 % 0-1 [facility] Bilirubin Test strip Ql (U)O rdered By: Dominik Galvan on 01-17-2025 Bilirubin Ql (U) Negative Negative [facility] Bilirubin, totalOrdered By: Dominik Galvan on 01-17-2025 Bilirubin [Mass/Vol] 1.24 mg/dL 0.00-1.30 [facility] Brain/Head without Contrasto n 01-17-2025 Brain/Head without Contrast [facility] [address] [place] [address] Brain/Head without Contrast MR#: [id number] Acct: [id number] Name: michaela brandt Rep #: [id number] : 1940 F 84 From: Dominik Thornton MD PCP: NOT,DEFINED Status: PRE ER Study: Brain/Head without Contrast Date of Exam: 12/13 Exam# [id number] Ordering Dr: Dominik Galvan PETROLOGY TEACHER-C EXAM: BRAIN/HEAD WITHOUT CONTRAST CLINICAL HISTORY: Confusion [...] Location: [place] CC: ANA Galvan; DEFINED NOT Bulk Mail Clerk: Signed Normal [facility] CBC W/Diff, Automatedon 03-0 Absolute Lymph 1.42 X10 3/uL Normal 0.83-4.51 [facility] Comment on above: Performed By: #### L 100.0100, L500.4050 ####[facility] [address] [place], [address] Absolute Neut 10.3 X10 3/uL High 2.0-7.7 [facility] Comment on above: Performed By: #### L 100.0100, L500.4050 ####[facility] [address] [place], [address] Basophils/100 WBC (Bld) 0.4 % Normal 0-1 [facility] Comment on above: Performed By: #### L 100.0100, L500.4050 ####[facility] [address] [place], [address] Eosinophils/100 WBC (Bld) 1.0 % Normal 0-5 [facility] Comment on above: Performed By: #### L 100.0100, L500.4050 ####[facility] [address] [place], [address] Erythrocyte distribution width (RBC) [Ratio] 13.3 % Normal 11.6-14.6 [facility] Comment on above: Performed By: #### L 100.0100, L500.4050 ####[facility] [address] [place], [address] Hematocrit (Bld) [Volume fraction] 35.9 % Low 37-47 [facility] Comment on above: Performed By: #### L 100.0100, L500.4050 ####[facility] [address] [place], [address] Hemoglobin (Bld) [Mass/Vol] 12.3 g/dL Normal 12.0-15.0 [facility] Comment on above: Performed By: #### L 100.0100, L500.4050 ####[facility] [address] [place], [address] IG% 0.400 Normal 0.0-0.9 [facility] Comment on above: Result Comment: IG% - Immature Granulocytes (promyelocytes, myelocytes and metamyelocytes) > 1% indicates that a LEFT SHIFT is Present. Performed By: #### L 100.0100, L500.4050 ####[facility] [address] [place], [address] Lymphocytes/100 WBC (Bld) 11.0 % Low 19-41 [facility] Comment on above: Performed By: #### L 100.0100, L500.4050 ####[facility] [address] [place], [address] MCH (RBC) [Entitic mass] 29.9 pg Normal 27.0-32.0 [facility] Comment on above: Performed By: #### L 100.0100, L500.4050 ####[facility] [address] [place], [address] MCHC (RBC) [Mass/Vol] 34.3 g/dL Normal 32-36 [facility] Comment on above: Performed By: #### L 100.0100, L500.4050 ####[facility] [address] [place], [address] MCV (RBC) [Entitic vol] 87.3 fL Normal 81-99 [facility] Comment on above: Performed By: #### L 100.0100, L500.4050 ####[facility] [address] [place], [address] Monocytes/100 WBC (Bld) 8.1 % Normal 0-10 [facility] Comment on above: Performed By: #### L 100.0100, L500.4050 ####[facility] [address] [place], [address] Neutrophils/100 WBC (Bld) 79.1 % High 47-70 [facility] Comment on above: Performed By: #### L 100.0100, L500.4050 ####[facility] [address] [place], [address] Nucleated RBC (Bld) [#/Vol] 0 10*3/uL Normal 0-5 [facility] Comment on above: Performed By: #### L 100.0100, L500.4050 ####[facility] [address] [place], [address] Platelet mean volume (Bld) [Entitic vol] 10.5 fL Normal 6.2-12.0 [facility] Comment on above: Performed By: #### L 100.0100, L500.4050 ####[facility] [address] [place], [address] Platelets (Bld) [#/Vol] 169 10*3/uL Normal 150-450 [facility] Comment on above: Performed By: #### L 100.0100, L500.4050 ####[facility] [address] [place], [address] RBC (Bld) [#/Vol] 4.11 10*6/uL Low 4.2-5.4 [facility] Comment on above: Performed By: #### L 100.0100, L500.4050 ####[facility] [address] [place], [address] RDW SD 42.1 fl Normal 35.1-43.9 [facility] Comment on above: Performed By: #### L 100.0100, L500.4050 ####[facility] [address] [place], [address] WBC (Bld) [#/Vol] 13.0 10*3/uL High 4.4-11.0 [facility] Comment on above: Performed By: #### L 100.0100, L500.4050 ####[facility] [address] [place], [address] Carbon dioxide measurementOr dered By: Dominik Galvan on 01-17-2025 CO2 [Moles/Vol] 25.5 mmol/L 22.0-29.0 [facility] Chloride measurementOrdered By: Dominik Galvan on 01-17-2025 Chloride [Moles/Vol] 103 mmol/L 96-108 [facility] Comprehensive Metabolic Prof ilon 01-17-2025 Albumin [Mass/Vol] 4.2 g/dL Normal 3.4-4.8 [facility] Comment on above: Performed By: #### L 100.0100, L500.4050 ####[facility] [address] [place], [address] Albumin/Globulin [Mass ratio] 1.4 {ratio} Normal 0.9-2.4 [facility] Comment on above: Performed By: #### L 100.0100, L500.4050 ####[facility] [address] [place], [address] ALK PHOS 75 U/L Normal 35-104 [facility] Comment on above: Performed By: #### L 100.0100, L500.4050 ####[facility] [address] [place], [address] ALT [Catalytic activity/Vol] 9 U/L Normal <=34 [facility] Comment on above: Performed By: #### L 100.0100, L500.4050 ####[facility] [address] [place], [address] Anion gap [Moles/Vol] 12 mmol/L Normal 5-15 [facility] Comment on above: Performed By: #### L 100.0100, L500.4050 ####[facility] [address] [place], [address] AST [Catalytic activity/Vol] 19 U/L Normal <=31 [facility] Comment on above: Performed By: #### L 100.0100, L500.4050 ####[facility] [address] [place], [address] Bilirubin [Mass/Vol] 1.24 mg/dL Normal 0.00-1.30 [facility] Comment on above: Performed By: #### L 100.0100, L500.4050 ####[facility] [address] [place], [address] BUN/CRE 20.5 RATIO High 10-20 [facility] Comment on above: Performed By: #### L 100.0100, L500.4050 ####[facility] [address] [place], [address] Calcium [Mass/Vol] 9.7 mg/dL Normal 7.6-11.0 [facility] Comment on above: Performed By: #### L 100.0100, L500.4050 ####[facility] [address] [place], [address] Chloride [Moles/Vol] 103 mmol/L Normal 96-108 [facility] Comment on above: Performed By: #### L 100.0100, L500.4050 ####[facility] [address] [place], [address] CO2 [Moles/Vol] 25.5 mmol/L Normal 22.0-29.0 [facility] Comment on above: Performed By: #### L 100.0100, L500.4050 ####[facility] [address] [place], [address] Creatinine [Mass/Vol] 0.92 mg/dL Normal 0.70-1.20 [facility] Comment on above: Performed By: #### L 100.0100, L500.4050 ####[facility] [address] [place], [address] GFR/1.73 sq M.predicted among non-blacks MDRD (S/P/Bld) [Vol rate/Area] 61 mL/min/{1.73_m2} Normal >60 [facility] Comment on above: Result Comment: mL/m in/1.73m2 CKD-EPI Creatinine Equation (2020) Performed By: #### L 100.0100, L500.4050 ####[facility] [address] [place], [address] Globulin (S) [Mass/Vol] 3.0 g/dL Normal 2.2-4.2 [facility] Comment on above: Performed By: #### L 100.0100, L500.4050 ####[facility] [address] [place], [address] Glucose [Mass/Vol] 113 mg/dL High 70-99 [facility] Comment on above: Performed By: #### L 100.0100, L500.4050 ####[facility] [address] [place], [address] Potassium [Moles/Vol] 3.9 mmol/L Normal 3.3-5.1 [facility] Comment on above: Performed By: #### L 100.0100, L500.4050 ####[facility] [address] [place], [address] Sodium [Moles/Vol] 140 mmol/L Normal 133-145 [facility] Comment on above: Performed By: #### L 100.0100, L500.4050 ####[facility] [address] [place], [address] T PROT 7.2 g/dL Normal 5.9-8.4 [facility] Comment on above: Performed By: #### L 100.0100, L500.4050 ####[facility] [address] [place], [address] Urea nitrogen [Mass/Vol] 19 mg/dL Normal 4-19 [facility] Comment on above: Performed By: #### L 100.0100, L500.4050 ####[facility] [address] [place], [address] Emergency Department Summary on 01-17-2025 Emergency Department Summary [facility] Medical Records Department [address] [place] [address] Emergency Department Summary 01/17/25 MR#: [id number] Acct: [id number] Name: MICHAELA BRANDT Rep #: [id number] : 1940 84 From: Dominik PEREZ PCP: [...] denies any fever chills nausea or vomiting. [facility] Medical History (Updated 01/17/25 @ 19:37 by [...] 79.1 H Lymph % (Auto) 11.0 L [place] % (Auto) 8.1 Eos % (Auto) 1.0 Baso % (Auto) 0.4 Absolute Neuts (auto) 10.3 H Absolute Lymphs (auto) 1.42 Nucleated RBC % 0 Sodium 140 Potassium 3.9 Chloride Direct 103 Carbon Dioxide 25.5 Anion Gap 12 BUN 19 Creatinine 0.92 Est GFR (MDRD) Non-Af 61 BUN/Creatinine Ratio 20.5 H Glucose 113 H Calcium 9.7 Total Bilirubin 1.24 (more content not included)... Normal [facility] Eosinophil percentageOrdered By: Dominik Galvan on 01-17-2025 Eosinophils/100 WBC (Bld) 1.0 % 0-5 [facility] Epithelial cells.squamous LM Ql (Urine sed)Ordered By: Dominik Galvan on 01-17-2025 Epithelial cells.squamous LM.HPF (Urine sed) [#/Area] 0 /[HPF] 5-10 [facility] Erythrocyte distribution wid th (RBC) [Ratio]Ordered By: Dominik Galvan on 01-17-2025 Erythrocyte distribution width (RBC) [Entitic vol] 42.1 fL 35.1-43.9 [facility] Erythrocyte distribution wid th ratioOrdered By: Dominik Galvan on 01-17-2025 Erythrocyte distribution width (RBC) [Ratio] 13.3 % 11.6-14.6 [facility] Erythrocyte distribution wid th standard deviationOrdered By: Dominik Galvan on 01-17-2025 Erythrocyte distribution width (RBC) [Ratio] 42.1 fl 35.1-43.9 [facility] GFR/1.73 sq M.predicted arti g non-blacks MDRD (S/P/Bld) [Vol rate/Area]Ordered By: Dominik Galvan on 01-17-2025 Estimated GFR (MDRD) Non-Af Amer 61 >60 [facility] Comment on above: mL/min/1.73m2 CKD-EP I Creatinine Equation (2020) Glomerular filtration rate ( GFR) estimation/1.73 sq m using serum, plasma, or whole bOrdered By: Dominik Galvan on 01-17-2025 GFR/1.73 sq M.predicted among non-blacks MDRD (S/P/Bld) [Vol rate/Area] 61 mL/min/{1.73_m2} >60 [facility] Comment on above: mL/min/1.73m2 CKD-EP I Creatinine Equation (2020) Glucose Ql (U)Ordered By: Lacy Galvan on 01-17-2025 Urine Glucose (UA) Normal mg/dl Normal [facility] Hematocrit Auto (Bld) [Volum e fraction]Ordered By: Dominik Galvan on 01-17-2025 Hematocrit (Bld) [Volume fraction] 35.9 % Low 37-47 [facility] Hemoglobin measurementOrdere d By: Dominik Galvan on 01-17-2025 Hemoglobin (Bld) [Mass/Vol] 12.3 g/dL 12.0-15.0 [facility] Immature granulocytes/100 WB C Auto (Bld)Ordered By: Dominik Galvan on 01-17-2025 Immature granulocytes/100 WBC (Bld) 0.400 % 0.0-0.9 [facility] Comment on above: IG% - Immature Granu locytes (promyelocytes, myelocytes and metamyelocytes) > 1% indicates that a LEFT SHIFT is Present. Influenza virus A and B and SARS-CoV-2 (COVID-19) and Respiratory syncytial virus RNAOrdered By: Dominik Galvan on 01-17-2025 SARS-CoV-2 (COVID-19) RNA DANIEL+probe Ql (Unsp spec) [facility] Ketones Test strip Ql (U)Ord ered By: Dominik Galvan on 01-17-2025 Ketones Ql (U) Negative Negative [facility] Laboratory - Chemistry and C hemistry - challengeOrdered By: Dominik Galvan on 01-17-2025 AST [Catalytic activity/Vol] 19 U/L <32 [facility] Lymphocytes Auto (Unsp spec) [#/Vol]Ordered By: Dominik Galvan on 01-17-2025 Lymphocytes (Bld) [#/Vol] 1.42 10*3/uL 0.83-4.51 [facility] Lymphocytes/100 WBC Auto (Un sp spec)Ordered By: Dominik Galvan on 01-17-2025 Lymphocytes/100 WBC (Bld) 11.0 % Low 19-41 [facility] M100.678on 01-17-2025 M100.678 Pending SARS-CoV-2 (COVID 19) Negative INFLUENZA A Negative INFLUENZA B Negative RSV PCR Negative Normal [facility] Comment on above: Performed By: #### M 100.678, L400.0001 ####[facility] [address] [facility] [place], [address] MCV (mean corpuscular volume ) determinationOrdered By: Dominik Galvan on 01-17-2025 MCV (RBC) [Entitic vol] 87.3 fL 81-99 [facility] Mean corpuscular hemoglobin (MCH) determinationOrdered By: Dominik Galvan on 01-17-2025 MCH (RBC) [Entitic mass] 29.9 pg 27.0-32.0 [facility] Mean corpuscular hemoglobin concentration (MCHC) determinationOrdered By: Dominik Galvan on 01-17-2025 MCHC (RBC) [Mass/Vol] 34.3 g/dL 32-36 [facility] Mean platelet volume determi nationOrdered By: Dominik Galvan on 01-17-2025 Platelet mean volume (Bld) [Entitic vol] 10.5 fL 6.2-12.0 [facility] Microscopic analysis of urin e for red blood cells (RBC)Ordered By: Dominik Galvan on 01-17-2025 Microscopic analysis of urine for red blood cells (RBC) 0-5 SEEN /hpf 0-5 [facility] Urine RBC 0-5 SEEN /hpf 0-5 [facility] Monocyte percentageOrdered B y: Dominik Galvan on 01-17-2025 Monocytes/100 WBC (Bld) 8.1 % 0-10 [facility] Mucus LM Ql (Urine sed)Order ed By: Dominik Galvan on 01-17-2025 Mucus Ql (Urine sed) 0 SEEN /hpf [facility] Neutrophil percentageOrdered By: Dominik Galvan on 01-17-2025 Neutrophils/100 WBC (Bld) 79.1 % High 47-70 [facility] Nitrite Test strip Ql (U)Ord ered By: Doimnik Galvan on 01-17-2025 Nitrite Ql (U) Positive High Negative [facility] Nucleated red blood cell per centageOrdered By: Dominik Galvan on 01-17-2025 Nucleated RBC/100 WBC (Bld) [Ratio] 0 % 0-5 [facility] Platelet countOrdered By: Lacy Galvan on 01-17-2025 Platelets (Bld) [#/Vol] 169 10*3/uL 150-450 [facility] Protein Test strip Ql (U)Ord ered By: Dominik Galvan on 01-17-2025 Protein Ql (U) Negative Negative [facility] RBC Auto (Bld) [#/Vol]Ordere d By: Dominik Galvan on 01-17-2025 RBC (Bld) [#/Vol] 4.11 10*6/uL Low 4.2-5.4 [facility] Serum creatinine measurement (mass/volume)Ordered By: Dominik Galvan on 01-17-2025 Creatinine [Mass/Vol] 0.92 mg/dL 0.70-1.20 [facility] Serum globulin measurementOr dered By: Dominik Galvan on 01-17-2025 Globulin (S) [Mass/Vol] 3.0 g/dL 2.2-4.2 [facility] Serum glucose measurement (m ass/volume)Ordered By: Dominik Galvan on 01-17-2025 Glucose [Mass/Vol] 113 mg/dL High 70-99 [facility] Serum or plasma alanine tillman otransferase (ALT) measurementOrdered By: Dominik Galvan on 01-17-2025 ALT [Catalytic activity/Vol] 9 U/L <35 [facility] Serum or plasma albumin thomas urement (mass/volume)Ordered By: Dominik Galvan on 01-17-2025 Albumin [Mass/Vol] 4.2 g/dL 3.4-4.8 [facility] Serum or plasma albumin/glob ulin mass ratioOrdered By: Dominik Galvan on 01-17-2025 Albumin/Globulin [Mass ratio] 1.4 {ratio} 0.9-2.4 [facility] Serum or plasma alkaline mariah sphatase measurementOrdered By: Dominik Galvan on 01-17-2025 ALP [Catalytic activity/Vol] 75 U/L 35-104 [facility] Serum or plasma anion gap de termination (moles/volume)Ordered By: Dominik Galvan on 01-17-2025 Anion gap [Moles/Vol] 12 mmol/L 5-15 [facility] Serum or plasma calcium thomas urement (mass/volume)Ordered By: Dominik Galvan on 01-17-2025 Calcium [Mass/Vol] 9.7 mg/dL 7.6-11.0 [facility] Serum or plasma potassium me asurementOrdered By: Dominik Galvan on 01-17-2025 Potassium [Moles/Vol] 3.9 mmol/L 3.3-5.1 [facility] Serum or plasma sodium measu rement (moles/volume)Ordered By: Dominik aGlvan on 01-17-2025 Sodium [Moles/Vol] 140 mmol/L 133-145 [facility] Serum or plasma urea nitroge n measurement (mass/volume)Ordered By: Dominik Galvan on 01-17-2025 Urea nitrogen [Mass/Vol] 19 mg/dL 4-19 [facility] Squamous epithelial cells de tection in urine sediment by light microscopyOrdered By: Dominik Galvan on 01-17-2025 Epithelial cells.squamous LM Ql (Urine sed) 0-5 SEEN /hpf 5- [facility] Total proteinOrdered By: Shanna Galvan on 01-17-2025 Protein [Mass/Vol] 7.2 g/dL 5.9-8.4 [facility] Urinalysis, Completeon 01-17 AMORPHOUS 1+ URATE Normal [facility] Comment on above: Order Comment: SHAKA TER SPECIMEN Performed By: #### M 100.678, L400.0001 ####[facility] [address] [place], [address] BACTERIA 3+ /hpf Normal None Seen [facility] Comment on above: Order Comment: SHAKA TER SPECIMEN Performed By: #### M 100.678, L400.0001 ####[facility] [address] [place], [address] EPI,SQUAMOUS 0-5 SEEN Normal 5-10 [facility] Comment on above: Order Comment: SHAKA TER SPECIMEN Performed By: #### M 100.678, L400.0001 ####[facility] [address] [place], [address] RBC 0-5 SEEN Normal 0-5 [facility] Comment on above: Order Comment: SHAKA TER SPECIMEN Performed By: #### M 100.678, L400.0001 ####[facility] [address] [place], [address] WBC 0-5 SEEN Normal 0-5 [facility] Comment on above: Order Comment: SHAKA TER SPECIMEN Performed By: #### M 100.678, L400.0001 ####[facility] [address] [place], [place], [address] Mucus Ql (Urine sed) 0 SEEN Normal [facility] Comment on above: Order Comment: [facility] SPECIMEN Performed By: #### M 100.678, L400.0001 ####[facility] [address] [place], [place], [id number] Urine blood detectionOrdered By: Dominik Galvan on 01-17-2025 Urine Occult Blood 25 /ul High Negative [facility] Urine clarityOrdered By: Shanna Galvan on 01-17-2025 Clarity (U) Sl. Cloudy Clear [facility] Urine color determinationOrd ered By: Dominik Galvan on 01-17-2025 Color (U) Yellow Yellow [facility] Urine cultureOrdered By: Yodit Florence on 01-17-2025 Bacteria identified Cx Nom (U) Klebsiella pneumoniae sp pneum Abnormal [facility] Urine glucose detectionOrder ed By: Dominik Galvan on 01-17-2025 Glucose Ql (U) Normal mg/dl Normal [facility] Urine leukocyte esterase det ection by dipstickOrdered By: Dominik Galvan on 01-17-2025 Leukocyte esterase Test strip Ql (U) 25 /ul High Negative [facility] Urine pHOrdered By: Dominik oliveira on 01-17-2025 pH (U) 6.5 [pH] 5.0 - 8.0 [facility] Urine sediment bacteria coun t by microscopy (number/high power field)Ordered By: Dominik Galvan on 01-17-2025 Bacteria LM.HPF (Urine sed) [#/Area] 3 /[HPF] None Seen [facility] Urine specific gravity measu rementOrdered By: Dominik Galvan on 01-17-2025 Specific gravity (U) [Rel density] 1.015 1.002-1.030 [facility] Urine urobilinogen measureme ntOrdered By: Dominik Galvan on 01-17-2025 Urobilinogen Ql (U) 4 mg/dl High Normal [facility] Urobilinogen Ql (U)Ordered B y: Dominik Galvan on 01-17-2025 Urobilinogen (U) [Mass/Vol] 4 mg/dL High Normal [facility] White blood cell (WBC) count Ordered By: Dominik Galvan on 01-17-2025 WBC (Bld) [#/Vol] 13.0 10*3/uL High 4.4-11.0 [facility] White blood cell countOrdere d By: Dominik Galvan on 01-17-2025 Urine WBC 0-5 SEEN /hpf 0-5 [facility] White blood cell count 0-5 SEEN /hpf 0-5 [facility] CNOVon 12-23-2024 CNOV Office Visit (UROLWS ) MICHAELA BRANDT ([id number]) 1940 F Date Time Provider Department 12/23/24 10:00 AM TOM BALTAZAR During your visit today, we recorded the following information about you: Temperature Pulse Respiration Blood pressure 97.4 degrees 80/minute 12/minute 144/64 Weight 59.9 kg Tom Baltazar PA-C 12/23/2024 3:21 PM Addendum [facility] NEW PATIENT CLINIC NOTE (F) SERVICE [...] Clear PRO (more content not included)... [facility] MICHAELA BRANDT ([id number]) 1940 F Date Time Provider Department 12/23/24 TOM BALTAZAR During your visit today, we recorded the following information about you: Nusrat Palmer LPN 12/23/2024 4:46 PM Signed Faxed signed Authorization to Disclose Health Information to [facility] to office of Dr. Ovalle for urological records. RAMIREZ Valdes Kimberly, LPN 12/25/2024 12:50 PM Signed Received one lab from [facility] via tydy. Uploaded to [facility] [employer] via tydy. Nusrat Palmer LPN Allergies As of Date: 12/23/2024 (No Known Allergies) Date Reviewed: 12/23/2024 Reviewed by: Nusrat Palmer LPN - Fully Assessed Reason for [...] Status:Closed by NUSRAT PALMER on 12/25/24 Normal [facility] UA DIP, URINE (POC)on 2024 BILIRUBIN UA (POCT) Negative Negative [facility] CLARITY UA (POCT) Clear [facility] COLOR UA (POCT) Yellow [facility] GLUCOSE UA (POCT) Negative Negative mg/dL [facility] Hemoglobin Ql (U) Trace-intact Abnormal Negative [facility] Interpretation and review of laboratory results Abnormal [facility] KETONE UA (POCT) Negative Negative mg/dL [facility] LEUKOCYTES UA (POCT) Trace Abnormal Negative [facility] NITRITE UA (POCT) Negative Negative [facility] PH UA (POCT) 5.0 4.5 - 8.0 [facility] Protein Ql (U) Negative Negative mg/dL [facility] SPECIFIC GRAVITY UA (POCT) >=1.030 1.005 - 1.030 [facility] UROBILINOGEN UA (POCT) 0.2 Supriya l E.U./dL [facility] Location:[facility], [address] , [place], [place], [id number] [place] [address] POINT OF CARE [facility] CNOVon 12-10-2024 CNOV Office Visit (GERIWR ) MICHAELA BRANDT ([id number]) 1940 F Date Time Provider Department 12/10/24 12:30 PM DILLAN SANTIAGO During your visit today, we recorded the following information about you: Dillan Santiago MD 12/10/2024 5:10 PM Signed [facility] Initial Consult Michaela [...] on her own. They are looking into [facility]. Have cameras installed so they [...] she knows and feels. Just moved to [place] where her daughter lives after needing to sell her 3 story home to allow her to continue to live independently. Last PCP was Ludin Richey in the [facility]. Is now in her own 1 level apartment. Needs assistance with medication dispensing and is needing support to drive her to appointments and to the store. Is hoping to go to [place] [facility] a few times a week as [...] UTIs and followed with a urologist in [place]. Denies abdominal pain, fever, chills, or dark/foul [...] secure location? No Social History: Primary language: Citizen Of [place] Marital Status: Living situation: Home w/ Family Socially engaged? (participates in activities such as clubs, anabaptism, community center, sports, games, visiting friends/relatives, etc?): YES once a week she goes out. 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 NO [...] 50 (more content not included)... [facility] Telephone (GERIWR) MICHAELA BRANDT ([id number]) 1940 F Date Time Provider Department 12/10/24 DILLAN SANTIAGO During your visit today, we recorded the following information about you: Colten Greer MA 12/10/2024 2:11 PM Signed Patient's daughter states that [facility] needs something from Dr. Santiago that its ok for patient to attend but not sure what exactly is needed. Phone call to [facility] for intake to contact our office to see what information they need from us. EVON Wade Mary, LPN 12/12/2024 2:29 PM Signed Called shaila for 2nd time, left message with Intake. To call office back Marin# [phone] Mckenzie Lombardo LPN December 12, 2024 2:29 PM Colten Greer MA 12/16/2024 2:34 PM Signed Spoke with Giovanni at [facility]. Once he has seen the patient and [...] Encounter Status:Closed by COLTEN GREER on 12/16/24 [facility] Markus 11-21-2024 [facility]CJWS[facility] MICHAELA BRANDT ([id number]) 1940 F Date Time Provider Department 11/21/24 [...] Status:Closed by MARIPOSA SALINAS on 03/30/25 Normal [facility] CBC panel Auto (Bld)on 11-17 Erythrocyte distribution width (RBC) [Ratio] 13.2 % Normal 11.5-15.0 [facility] Comment on above: Order Comment: Speci men Type: BLOOD SPECIMENOrdering Facility: [facility] Address: [address] [place] [address] Performed By: #### 5 8410-2 ####[facility] [id number] [place] [address] [place] Hematocrit (Bld) [Volume fraction] 37.7 % Normal 36.0-46.0 [facility] Comment on above: Order Comment: Speci men Type: BLOOD SPECIMENOrdering Facility: [facility] Address: [address] [place] [address] Performed By: #### 5 8410-2 ####[facility] [id number] [place] [address] [place] Hemoglobin (Bld) [Mass/Vol] 13.1 g/dL Normal 11.5-15.5 [facility] Comment on above: Order Comment: Speci men Type: BLOOD SPECIMENOrdering Facility: [facility] Address: [address] [place] [address] Performed By: #### 5 8410-2 ####[facility] SOUTHGREGORIA [id number] [place] [address] [place] MCH (RBC) [Entitic mass] 30.5 pg Normal 26.0-34.0 [facility] Comment on above: Order Comment: Speci men Type: BLOOD SPECIMENOrdering Facility: [facility] Address: [address] [place] [address] Performed By: #### 5 8410-2 ####[facility]ENTERLEDAJitendra [id number] [place] [address] [place] MCHC (RBC) [Mass/Vol] 34.7 g/dL Normal 30.5-36.[address] [facility] Comment on above: Order Comment: Speci men Type: BLOOD SPECIMENOrdering Facility: [facility] Address: [address] [place] [address] Performed By: #### 5 8410-2 ####[facility]ENTERNCLIJitendra [id number] [place] [address] [place] MCV (RBC) [Entitic vol] 87.9 fL Normal 80.0-100.0 [facility] Comment on above: Order Comment: Speci men Type: BLOOD SPECIMENOrdering Facility: [facility] Address: [address] [place] [address] Performed By: #### 5 8410-2 ####[facility]ENTERNCLIA [id number] [place] [address] [place] Nucleated RBC (Bld) [#/Vol] 10*3/uL Normal <0.01 [facility] Comment on above: Order Comment: Speci men Type: BLOOD SPECIMENOrdering Facility: [facility] Address: [address] [place] [address] Performed By: #### 5 8410-2 ####[facility]ENTERNCLIA [id number] [place] [address] [place] Platelet mean volume (Bld) [Entitic vol] 10.3 fL Normal 9.0-12.7 [facility] Comment on above: Order Comment: Speci men Type: BLOOD SPECIMENOrdering Facility: [facility] Address: [address] [place] [address] Performed By: #### 5 8410-2 ####[facility]ENTERNCSEVI[facility] [id number] [place] [address] [place] Platelets (Bld) [#/Vol] 176 10*3/uL Normal 150-400 [facility] Comment on above: Order Comment: Speci men Type: BLOOD SPECIMENOrdering Facility: [facility] Address: [address] [place] [address] Performed By: #### 5 8410-2 ####[facility]ENTERNCLIA [id number] [place] [address] [place] RBC (Bld) [#/Vol] 4.29 10*6/uL Normal 3.90-5.20 [facility] Comment on above: Order Comment: Speci men Type: BLOOD SPECIMENOrdering Facility: [facility] Address: [address] [place] [address] Performed By: #### 5 8410-2 ####[facility]ENTERNCLIA [id number] [place] [address] [place] WBC (Bld) [#/Vol] 13.60 10*3/uL High 3.70-11.00 [facility] Comment on above: Order Comment: Speci men Type: BLOOD SPECIMENOrdering Facility: [facility] Address: [address] [place] [address] Performed By: #### 5 8410-2 ####[facility]ENTERNCLIA [id number] [place] [address] [place] Comprehensive metabolic 2000 panelon 11-17-2024 Albumin [Mass/Vol] 4.0 g/dL Normal 3.9-4.9 [facility] Comment on above: Order Comment: Speci men Type: BLOOD SPECIMENOrdering Facility: [facility] Address: [address] [place] [address] Performed By: #### 2 4323-8 ####[facility] [id number] [place] [address] [place] ALP [Catalytic activity/Vol] 78 U/L Normal 34-123 [facility] Comment on above: Order Comment: Speci men Type: BLOOD SPECIMENOrdering Facility: [facility] Address: [address] [place] [address] Performed By: #### 2 4323-8 ####[facility]ENTERNCLIA [id number] [place] [address] [place] ALT [Catalytic activity/Vol] 5 U/L Low 7-38 [facility] Comment on above: Order Comment: Speci men Type: BLOOD SPECIMENOrdering Facility: [facility] Address: [address] [place] [address] Performed By: #### 2 4323-8 ####[facility]ENTERNCSEVI[facility] [id number] [place] [address] [place] Anion gap [Moles/Vol] 14 mmol/L Normal 8-[address] [facility] Comment on above: Order Comment: Speci men Type: BLOOD SPECIMENOrdering Facility: [facility] Address: [address] [place] [address] Performed By: #### 2 4323-8 ####[facility] MILLTOWNCLIA [id number] [place] [address] [place] AST [Catalytic activity/Vol] 11 U/L Low 13-35 [facility] Comment on above: Order Comment: Speci men Type: BLOOD SPECIMENOrdering Facility: [facility] Address: [address] [place] [address] Performed By: #### 2 4323-8 ####[facility] MARYWNCLIA [id number] [place] [address] [place] Bilirubin [Mass/Vol] 1.2 mg/dL Normal 0.2-1.3 [facility] Comment on above: Order Comment: Speci men Type: BLOOD SPECIMENOrdering Facility: [facility] Address: [address] [place] [address] Performed By: #### 2 4323-8 ####[facility] MARYWNCLIA [id number] [place] [address] [place] Calcium [Mass/Vol] 9.3 mg/dL Normal 8.5-10.2 [facility] Comment on above: Order Comment: Speci men Type: BLOOD SPECIMENOrdering Facility: [facility] Address: [address] [place] [address] Performed By: #### 2 4323-8 ####[facility] MILLWNCLIA [id number] [place] [address] [place] Chloride [Moles/Vol] 104 mmol/L Normal 98-107 [facility] Comment on above: Order Comment: Speci men Type: BLOOD SPECIMENOrdering Facility: [facility] Address: [address] [place] [address] Performed By: #### 2 4323-8 ####[facility]ENTERNCLIA [id number] [place] [id number] [place] CO2 [Moles/Vol] 23 mmol/L Normal 22-30 [facility] Comment on above: Order Comment: Selvini men Type: BLOOD SPECIMENOrdering Facility: [facility] Address: [address] [place] [address] Performed By: #### 2 4323-8 ####[facility] [id number] [place] [address] [place] Creatinine [Mass/Vol] 0.95 mg/dL Normal 0.58-0.[address] [facility] Comment on above: Order Comment: Speci men Type: BLOOD SPECIMENOrdering Facility: [facility] Address: [address] [place] [address] Performed By: #### 2 4323-8 ####[facility]ENTERNC[facility] [id number] [place] [address] [place] Creatinine and Glomerular filtration rate.predicted panel (S/P/Bld) 59 mL/min/1.73m??? Low >=60 [facility] Comment on above: Order Comment: Speci men Type: BLOOD SPECIMENOrdering Facility: [facility] Address: [address] [place] [address] Result Comment: Linda mated Glomerular Filtration Rate [...] actual GFR. Performed By: #### 2 4323-8 ####[facility] SOUTHLIA [id number] [place] [address] [place] Glucose [Mass/Vol] 119 mg/dL High 74-99 [facility] Comment on above: Order Comment: Selvini men Type: BLOOD SPECIMENOrdering Facility: [facility] Address: [address] [place] [id number] Result Comment: The [place] Diabetes Association (ADA) provides guidance for cutoff [...] Standards of Medical Care in Diabetes 2016, [employer] Diabetes Association. Diabetes Care. 2016.39(Suppl 1). Performed By: #### 2 4323-8 ####[facility] CENTERLEDAJitendra [id number] [place] [address] [place] Potassium [Moles/Vol] 3.7 mmol/L Normal 3.7-5.[address] [facility] Comment on above: Order Comment: Speci men Type: BLOOD SPECIMENOrdering Facility: [facility] Address: [address] [place] [address] Performed By: #### 2 4323-8 ####[facility] [id number] [place] [address] [place] Protein [Mass/Vol] 6.6 g/dL Normal 6.3-8.0 [facility] Comment on above: Order Comment: Speci men Type: BLOOD SPECIMENOrdering Facility: [facility] Address: [address] [place] [address] Performed By: #### 2 4323-8 ####[facility] [id number] [place] [address] [place] Sodium [Moles/Vol] 141 mmol/L Normal 136-144 [facility] Comment on above: Order Comment: Speci men Type: BLOOD SPECIMENOrdering Facility: [facility] Address: [address] [place] [id number] Performed By: #### 2 4323-8 ####[facility]ENTERNCLIA [id number] [place] [address] [place] Urea nitrogen [Mass/Vol] 23 mg/dL High 7-21 [facility] Comment on above: Order Comment: Speci men Type: BLOOD SPECIMENOrdering Facility: [facility] Address: [address] [place] [address] Performed By: #### 2 4323-8 ####[facility] SOUTHLIA [id number] [place] [address] [place] Lipid 1996 panelon 4 Cholesterol [Mass/Vol] 176 mg/dL Normal <200 [facility] Comment on above: Order Comment: Speci men Type: BLOOD SPECIMENOrdering Facility: [facility] Address: [address] [place] [address] Result Comment: <200 mg/dL, Desirable 200-239 mg/dL, Borderline high >239 mg/dL, High Performed By: #### 2 4331-1 ####[facility] LABCLIA [id number] [address] STATES OF [facility] [id number] [place] [address] [place]#### 3051-0, 3024-7, 3016-3 ####[facility] LABCLIA [id number] [place] [address] [place] Cholesterol in HDL [Mass/Vol] 52 mg/dL Normal >39 [facility] Comment on above: Order Comment: Speci men Type: BLOOD SPECIMENOrdering Facility: [facility] Address: [address] [place] [address] Result Comment: 40-5 9 mg/dL, Acceptable >59 mg/dL, High: Negative risk factor for coronary heart disease <40 mg/dL, Low: Positive risk factor for coronary heart disease Performed By: #### 2 4331-1 ####[facility] LABCLIA [id number] [address] [id number] [place] [address] [place]#### 3051-0, 3024-7, 3016-3 ####[facility] LABCLIA [id number] [place] [address] [place] Cholesterol in LDL [Mass/Vol] 107 mg/dL High <100 [facility] Comment on above: Order Comment: Speci men Type: BLOOD SPECIMENOrdering Facility: [facility] Address: [address] [place] [address] Result Comment: <100 mg/dL, Optimal 100-129 mg/dL, Near optimal/above optimal 130-159 mg/dL, Borderline high 160-189 mg/dL, High >189 mg/dL, Very high Secondary prevention optimal LDL Cholesterol levels are recommended to be < 70 mg/dL Performed By: #### 2 4331-1 ####[facility] LABCLIA [id number] [address] [id number] [place] [address] [place]#### 3051-0, 3024-7, 3016-3 ####[facility] LABCLIA [id number] [place] [address] [place] Cholesterol in LDL/Cholesterol in HDL [Mass ratio] 2.06 {ratio} Normal <2.54 [facility] Comment on above: Order Comment: Speci men Type: BLOOD SPECIMENOrdering Facility: [facility] Address: [address] [place] [address] Result Comment: Refe rence: 1. National Cholesterol Education Program ATP III Guideline At-A-Glance Quick Desk Reference: National Heart, Lung, and Blood [place]. National Institutes of Health. 2001: NIH Publication No. 01-3305. 2. An International Atherosclerosis Society position paper: global recommendations for the management of dyslipidemia: executive summary, Atherosclerosis. 2014: 232(2):410-413. Performed By: #### 2 4331-1 ####[facility] LABCLIA [id number] [address] [id number] [place] [address] [place]#### 3051-0, 3024-7, 3016-3 ####[facility] LABCLIA [id number] [place] [address] [place] Cholesterol in VLDL [Mass/Vol] 17 mg/dL Normal <30 [facility] Comment on above: Order Comment: Marcel men Type: BLOOD SPECIMENOrdering Facility: [facility] Address: [address] [place] [address] Performed By: #### 2 4331-1 ####[facility] LABCLIA [id number] [address] [id number] [place] [address] [place]#### 3051-0, 3024-7, 3016-3 ####[facility] LABCLIA [id number] [place] [address] [place] Cholesterol non HDL [Mass/Vol] 124 mg/dL Normal <130 [facility] Comment on above: Order Comment: Marcel hopper Type: BLOOD SPECIMENOrdering Facility: [facility] Address: [address] [place] [address] Result Comment: <130 mg/dL, Optimal 130-159 mg/dL, Near optimal/above optimal 160-189 mg/dL, Borderline high 190-219 mg/dL, High >219 mg/dL, Very high Secondary prevention optimal non HDL Cholesterol levels are recommended to be <100 mg/dL Performed By: #### 2 4331-1 ####[facility] LABCLIA [id number] [address] [address] R [facility] CENTERLIA [id number] [place] [address] [place]#### 3051-0, 3023-7, 3016-3 ####[facility] LABCLIA [id number] [address] [address] [place] Cholesterol.total/Choles terol in HDL [Mass ratio] 3.38 {ratio} Normal <5.10 [facility] Comment on above: Order Comment: Speci men Type: BLOOD SPECIMENOrdering Facility: [facility] Address: [address] [place], [place] [address] Performed By: #### 2 4331-1 ####[facility] LABCLIA [id number] [address] [address] [facility] [id number] [place] [address] [place]#### 3051-0, 7, 3016-3 ####[facility] LABCLIA [id number] [address] [address] [place] FASTING TIME 14 hrs Normal [facility] Comment on above: Order Comment: Speci men Type: BLOOD SPECIMENOrdering Facility: [facility] Address: [address] [place] [address] Performed By: #### 2 4331-1 ####[facility] LABCLIA [id number] [address] [address] [place] [facility] [id number] [place] [address] [place]#### 3051-0, 3024-7, 3 ####[facility] LABCLIA [id number] [place] [address] [place] Triglyceride [Mass/Vol] 83 mg/dL Normal <150 [facility] Comment on above: Order Comment: Speci men Type: BLOOD SPECIMENOrdering Facility: [facility] Address: [address] [place] [address] Result Comment: <150 mg/dL, Normal 150-199 mg/dL, Borderline high 200-499 mg/dL, High >499 mg/dL, Very high Performed By: #### 2 4331-1 ####[facility] LABCLIA [id number] [address] [place] OF [place] [id number] [place] [address] [place]#### 3051-0, 3024-05, 3 ####[facility] LABCLIA [id number] [place] [address] [place] T3Free SerPl-mCncon 11-17-20 24 Free T3 [Mass/Vol] 2.4 pg/mL Normal 2.3-4.1 [facility] Comment on above: Order Comment: Speci men Type: BLOOD SPECIMENOrdering Facility: [facility] Address: [address] [place] [address] Performed By: #### 2 4331-1 ####[facility] LABCLIA [id number] [id number] [place] [address] [place]#### 3051-0, 3024-05, 3 ####[facility] LABCLIA [id number] [place] [address] [place] T4 Free SerPl-mCncon 024 Free T4 [Mass/Vol] 1.2 ng/dL Normal 0.9-1.7 [facility] Comment on above: Order Comment: Speci men Type: BLOOD SPECIMENOrdering Facility: [facility] Address: [address] [place] [address] Performed By: #### 2 4331-1 ####[facility] LABCLIA [id number] [address] [id number] [place] [address] [place]#### 3051-0, 3024-7, 3016-3 ####[facility] LABCLIA [id number] [place] [address] [place] TSH SerPl-aCncon 11-17-2024 TSH Qn 1.280 m[IU]/L Normal 0.270-4.200 [facility] Comment on above: Order Comment: Speci men Type: BLOOD SPECIMENOrdering Facility: [facility] Address: [address] [place] [address] Performed By: #### 2 4331-1 ####[facility] LABCLIA [id number] [address] [id number] [place] [address] [place]#### 3051-0, 3024-7, 3016-3 ####[facility] LABCLIA [id number] [place] [address] [place] Vit B12 SerPl-mCncon 024 Cobalamin (Vitamin B12) [Mass/Vol] 404 pg/mL Normal 232-1245 [facility] Comment on above: Order Comment: Speci men Type: BLOOD SPECIMENOrdering Facility: [facility] Address: [address] [place] [id number] Performed By: #### 2 132-9 ####[facility] LABCLPEEWEE [id number] [facility] [id number] [id number] [place] CNOVon 11-05-2024 CNOV Office Visit (INTMWS ) MICHAELA BRANDT ([id number]) 1940 F Date Time Provider Department 11/05/24 2:40 PM MARIPOSA SALINAS INTSOL During your visit today, we recorded the following information about you: Pulse Respiration Blood pressure Weight 76/minute 16/minute 118/72 60.8 kg Mariposa Salinas APRN.DOUBLE SPINDLE SHAPER OPERATOR 11/05/2024 3:38 PM Signed CC: Patient presents with: Establish Care: Establish Care HPI Michaela Brandt is a 84 year old female who presents today for establish care. Just moved to [place] where her daughter lives after needing to sell her 3 story home to allow her to continue to live independently. Last PCP was Ludin Richey in the [facility]. Is now in her own 1 level apartment. Needs assistance with medication dispensing and is needing support to drive her to appointments and to the store. Is hoping to go to [employer] [place] a few times a week as well. [...] to request (more content not included)... Normal [facility] Culture, Urineon 12-19-2022 Culture, Urine Culture, [...] F Trimethoprim/Sulfameth oxazole S <=20 F Normal [facility] Vital Signs Date Time Vital Sign Value Performing Clinician Facility 06-03-2025 11:18-0400 Body weight 54.16 kg Dillan Santiago MD Work Phone: [facility] 06-03-2025 11:18-0400 Diastolic blood pressure 71 mm[Hg] Dillan Santiago MD Work Phone: [facility] 06-03-2025 11:18-0400 Heart rate 64 /min Dillan Santiago MD Work Phone: [facility] 06-03-2025 11:18-0400 Respiratory rate 16 /min Dillan Santiago MD Work Phone: [facility] 06-03-2025 11:18-0400 SaO2% (BldA) [Mass fraction] 95 % Dillan Santiago MD Work Phone: [facility] 06-03-2025 11:18-0400 Systolic blood pressure 134 mm[Hg] Dillan Santiago MD Work Phone: [facility] 05-17-2025 11:49-0400 Body temperature 98.6 [degF] Dr. Vadim Florence DO Work Phone: [facility] 05-17-2025 11:49-0400 Diastolic blood pressure 66 mm[Hg] Dr. Vadim Florence DO Work Phone: [facility] 05-17-2025 11:49-0400 Heart rate 65 /min Dr. Vadim Florence DO Work Phone: [facility] 05-17-2025 11:49-0400 Respiratory rate 16 /min Dr. Vadim Florence DO Work Phone: [facility] 05-17-2025 11:49-0400 SaO2% (BldA) [Mass fraction] 99 % Dr. Vadim Florence DO Work Phone: [facility] 05-17-2025 11:49-0400 Systolic blood pressure 148 mm[Hg] Dr. Vadim Florence DO Work Phone: [facility] 05-17-2025 09:32-0400 Body height 152.[address] Vadim Florence DO Work Phone: [facility] 05-06-2025 11:28-0400 Diastolic blood pressure 64 mm[Hg] Dillan Santiago MD Work Phone: [facility] 05-06-2025 11:28-0400 Systolic blood pressure 144 mm[Hg] Dillan Santiago MD Work Phone: [facility] 05-06-2025 11:27-0400 Body weight 55.79 kg Dillan Santiago MD Work Phone: [facility] 05-06-2025 11:27-0400 Heart rate 62 /min Dillan Santiago MD Work Phone: [facility] 05-06-2025 11:27-0400 Respiratory rate 12 /min Dillan Santiago MD Work Phone: [facility] 05-06-2025 11:27-0400 SaO2% (BldA) [Mass fraction] 98 % Dillan Santiago MD Work Phone: [facility] 04-17-2025 11:23-0400 Diastolic blood pressure 71 mm[Hg] Dillan Santiago MD Work Phone: [facility] 04-17-2025 11:23-0400 Heart rate 67 /min Dillan Santiago MD Work Phone: [facility] 04-17-2025 11:23-0400 Respiratory rate 16 /min Dillan Santiago MD Work Phone: [facility] 04-17-2025 11:23-0400 SaO2% (BldA) [Mass fraction] 98 % Dillan Santiago MD Work Phone: [facility] 04-17-2025 11:23-0400 Systolic blood pressure 124 mm[Hg] Dillan Santiago MD Work Phone: [facility] 03-19-2025 07:51-0400 Body temperature 98.3 [degF] Dr. Vadim Florence DO Work Phone: [facility] 03-19-2025 07:51-0400 Diastolic blood pressure 64 mm[Hg] Dr. Vadim Florence DO Work Phone: 6(862)595-390208 [place] [address] 03-19-2025 07:51-0400 Heart rate 68 /min Dr. Vadim Florence DO Work Phone: 3(482)411-174708 [place] [address] 03-19-2025 07:51-0400 Respiratory rate 16 /min Dr. Vadim Florence DO Work Phone: 7(350)420-864193 [address] 03-19-2025 07:51-0400 SaO2% (BldA) [Mass fraction] 98 % Dr. Vadim Florence DO Work Phone: 3(755)979-290393 [address] 03-19-2025 07:51-0400 Systolic blood pressure 150 mm[Hg] Dr. Vadim Florence DO Work Phone: 6(390)979-244408 [place] [address] 03-17-2025 14:08-0400 Body mass index (BMI) [Ratio] 25.4 kg/m2 Dr. Vadim Florence DO Work Phone: 7(642)681-798367 [place] [address] 03-17-2025 14:08-0400 Body weight 58.[address] Vadim Florence DO Work Phone: 8(551)522-117567 [place] [address] 03-11-2025 10:53-0400 Body temperature 97.7 [degF] Dr. Vadim Florence DO Work Phone: 3(502)809-996393 [address] 03-11-2025 10:53-0400 Diastolic blood pressure 48 mm[Hg] Dr. Vadim Florence DO Work Phone: 7(313)153-587867 [place] [address] 03-11-2025 10:53-0400 Heart rate 67 /min Dr. Vadim Florence DO Work Phone: 8(037)217-360767 [place] [address] 03-11-2025 10:53-0400 Respiratory rate 18 /min Dr. Vadim Florence DO Work Phone: 0(284)377-976267 [place] [address] 03-11-2025 10:53-0400 SaO2% (BldA) [Mass fraction] 100 % Dr. Vadim Florence DO Work Phone: 4(784)065-399567 [place] [address] 03-11-2025 10:53-0400 Systolic blood pressure 118 mm[Hg] Dr. Vadim lForence DO Work Phone: 4(155)637-745767 [place] [address] 03-11-2025 10:52-0400 Body height 152.[address] Vadim Florence DO Work Phone: 4(553)881-748567 [place] [address] 03-11-2025 10:52-0400 Body weight 58.[address] Vadim Florence DO Work Phone: 9(821)288-588608 [place] [address] 03-10-2025 14:50-0400 Body mass index (BMI) [Ratio] 25.4 kg/m2 Dr. Vadim Florence DO Work Phone: 3(175)719-535908 [place] [address] 03-04-2025 13:43-0400 Body temperature 98.1 [degF] Dr. Vadim Florence DO Work Phone: 2(866)574-125667 [place] [address] 03-04-2025 13:43-0400 Diastolic blood pressure 52 mm[Hg] Dr. Vadim Florence DO Work Phone: 9(226)176-967567 [place] [address] 03-04-2025 13:43-0400 Heart rate 83 /min Dr. Vadim Florence DO Work Phone: 1(812)373-457867 [place] [address] 03-04-2025 13:43-0400 Respiratory rate 16 /min Dr. Vadim Florence DO Work Phone: 5(498)519-836867 [place] [address] 03-04-2025 13:43-0400 SaO2% (BldA) [Mass fraction] 98 % Dr. Vadim Florence DO Work Phone: 7(546)932-293867 [place] [address] 03-04-2025 13:43-0400 Systolic blood pressure 142 mm[Hg] Dr. Vadim Florence DO Work Phone: 5(065)634-396067 [place] [address] 03-04-2025 11:43-0400 Inhaled oxygen flow rate 97 L/min Dr. Vadim Florence DO Work Phone: 1(337)170-569867 [place] [address] 03-04-2025 05:53-0400 Body mass index (BMI) [Ratio] 25.2 kg/m2 Dr. Vadim Florence DO Work Phone: 8(057)490-598667 [place] [address] 03-04-2025 05:53-0400 Body weight 58.[address] Vadim Florence DO Work Phone: 4(192)934-864367 [place] [address] 03-01-2025 15:09-0400 Body height 152.[address] Vadim Florence DO Work Phone: 2(399)647-911767 [place] [address] 03-01-2025 13:19-0400 Diastolic blood pressure 59 mm[Hg] Dr. Vadim Florence DO Work Phone: 3(353)624-524067 [place] [address] 03-01-2025 13:19-0400 Heart rate 60 /min Dr. Vadim Florence DO Work Phone: 6(877)620-629667 [place] [address] 03-01-2025 13:19-0400 Respiratory rate 21 /min Dr. Vadim Florence DO Work Phone: 9(064)513-940467 [place] [address] 03-01-2025 13:19-0400 SaO2% (BldA) [Mass fraction] 98 % Dr. Vadim Florence DO Work Phone: 1(638)769-999667 [place] [address] 03-01-2025 13:19-0400 Systolic blood pressure 145 mm[Hg] Dr. Vadim Florence DO Work Phone: 0(772)675-414767 [place] [address] 03-01-2025 12:26-0400 Body temperature 97.6 [degF] Dr. Vadim Florence DO Work Phone: 6(126)044-543867 [place] [address] 03-01-2025 11:25-0400 Body height 152.[address] Vadim Florence DO Work Phone: 1(297)739-017467 [place] [address] 03-01-2025 11:25-0400 Body mass index (BMI) [Ratio] 25.7 kg/m2 Dr. Vadim Florence DO Work Phone: [facility] 03-01-2025 11:25-0400 Body weight 59.[address] Vadim Florence DO Work Phone: [facility] 02-19-2025 11:23-0400 Body temperature 98.71 [degF] Walt Robles FOOD SERVICE CASHIER.DOUBLE SPINDLE SHAPER OPERATOR Work Phone: [facility] 02-19-2025 11:23-0400 Body weight 57 kg Walt Robles FOOD SERVICE CASHIER.DOUBLE SPINDLE SHAPER OPERATOR Work Phone: [facility] 02-19-2025 11:23-0400 Diastolic blood pressure 79 mm[Hg] Walt Robles FOOD SERVICE CASHIER.DOUBLE SPINDLE SHAPER OPERATOR Work Phone: [facility] 02-19-2025 11:23-0400 Heart rate 70 /min Walt Robles FOOD SERVICE CASHIER.DOUBLE SPINDLE SHAPER OPERATOR Work Phone: [facility] 02-19-2025 11:23-0400 Respiratory rate 22 /min Walt Robles FOOD SERVICE CASHIER.DOUBLE SPINDLE SHAPER OPERATOR Work Phone: [facility] 02-19-2025 11:23-0400 SaO2% (BldA) [Mass fraction] 98 % Walt Robles FOOD SERVICE CASHIER.DOUBLE SPINDLE SHAPER OPERATOR Work Phone: [facility] 02-19-2025 11:23-0400 Systolic blood pressure 145 mm[Hg] Walt Robles FOOD SERVICE CASHIER.DOUBLE SPINDLE SHAPER OPERATOR Work Phone: [facility] 02-18-2025 10:20-0400 Body weight 57.61 kg Mariposa Older FOOD SERVICE CASHIER.DOUBLE SPINDLE SHAPER OPERATOR Work Phone: [facility] 02-18-2025 10:20-0400 Diastolic blood pressure 80 mm[Hg] Mariposa Older FOOD SERVICE CASHIER.DOUBLE SPINDLE SHAPER OPERATOR Work Phone: [facility] 02-18-2025 10:20-0400 Heart rate 74 /min Mariposa Older FOOD SERVICE CASHIER.DOUBLE SPINDLE SHAPER OPERATOR Work Phone: [facility] 02-18-2025 10:20-0400 Respiratory rate 16 /min Mariposa Older FOOD SERVICE CASHIER.DOUBLE SPINDLE SHAPER OPERATOR Work Phone: [facility] 02-18-2025 10:20-0400 SaO2% (BldA) [Mass fraction] 97 % Mariposa Older FOOD SERVICE CASHIER.DOUBLE SPINDLE SHAPER OPERATOR Work Phone: [facility] 02-18-2025 10:20-0400 Systolic blood pressure 122 mm[Hg] Mariposa Older FOOD SERVICE CASHIER.DOUBLE SPINDLE SHAPER OPERATOR Work Phone: [facility] 02-04-2025 11:21-0400 Body weight 57.42 kg Dillan Santiago MD Work Phone: [facility] 02-04-2025 11:21-0400 Diastolic blood pressure 80 mm[Hg] Dillan Santiago MD Work Phone: [facility] 02-04-2025 11:21-0400 Heart rate 67 /min Dillan Santiago MD Work Phone: [facility] 02-04-2025 11:21-0400 SaO2% (BldA) [Mass fraction] 98 % Dillan Santiago MD Work Phone: [facility] 02-04-2025 11:21-0400 Systolic blood pressure 131 mm[Hg] Dillan Santiago MD Work Phone: [facility] 01-17-2025 19:54-0500 Body temperature 98.1 [degF] Dr. Vadim Florence DO Work Phone: [facility] 01-17-2025 19:54-0500 Diastolic blood pressure 69 mm[Hg] Dr. Vadim Florence DO Work Phone: [facility] 01-17-2025 19:54-0500 Heart rate 77 /min Dr. Vadim Florence DO Work Phone: [facility] 01-17-2025 19:54-0500 Respiratory rate 19 /min Dr. Vadim Florence DO Work Phone: [facility] 01-17-2025 19:54-0500 SaO2% (BldA) [Mass fraction] 98 % Dr. Vadim Florence DO Work Phone: [facility] 01-17-2025 19:54-0500 Systolic blood pressure 146 mm[Hg] Dr. Vadim Florence DO Work Phone: [facility] 12-23-2024 10:07-0500 Body temperature 97.39 [degF] Tom Baltazar PA-C Work Phone: [facility] 12-23-2024 10:07-0500 Body weight 59.88 kg Tom Baltazar PA-C Work Phone: [facility] 12-23-2024 10:07-0500 Diastolic blood pressure 64 mm[Hg] Tom Baltazar PA-C Work Phone: [facility] Comment on above: Tom notified of blood pressure. No c omplaints from patient. 12-23-2024 10:07-0500 Heart rate 80 /min Tom Baltazar PA-C Work Phone: [facility] 12-23-2024 10:07-0500 Respiratory rate 12 /min Tom Baltazar PA-C Work Phone: [facility] 12-23-2024 10:07-0500 SaO2% (BldA) [Mass fraction] 97 % Tom Baltazar PA-C Work Phone: [facility] 12-23-2024 10:07-0500 Systolic blood pressure 144 mm[Hg] Tom Baltazar PA-C Work Phone: [facility] Comment on above: Tom notified of blood pressure. No c omplaints from patient. 11-05-2024 14:35-0500 Body weight 60.78 kg Mariposa Older FOOD SERVICE CASHIER.DOUBLE SPINDLE SHAPER OPERATOR Work Phone: [facility] 11-05-2024 14:35-0500 Diastolic blood pressure 72 mm[Hg] Mariposa Older FOOD SERVICE CASHIER.DOUBLE SPINDLE SHAPER OPERATOR Work Phone: [facility] 11-05-2024 14:35-0500 Heart rate 76 /min Mariposa Older FOOD SERVICE CASHIER.DOUBLE SPINDLE SHAPER OPERATOR Work Phone: [facility] 11-05-2024 14:35-0500 Respiratory rate 16 /min Mariposa Older FOOD SERVICE CASHIER.DOUBLE SPINDLE SHAPER OPERATOR Work Phone: [facility] 11-05-2024 14:35-0500 SaO2% (BldA) [Mass fraction] 97 % Mariposa Older FOOD SERVICE CASHIER.DOUBLE SPINDLE SHAPER OPERATOR Work Phone: [facility] 11-05-2024 14:35-0500 Systolic blood pressure 118 mm[Hg] Mariposa Older FOOD SERVICE CASHIER.DOUBLE SPINDLE SHAPER OPERATOR Work Phone: [facility] 01-17-2024 13:24-0500 Body height 152.4 cm [facility] 01-17-2024 13:24-0500 Body mass index (BMI) [Ratio] 26.9 kg/m2 [facility] 01-17-2024 13:24-0500 Body weight 62.59 kg [facility] 01-17-2024 13:24-0500 Diastolic blood pressure 82 mm[Hg] [facility] 01-17-2024 13:24-0500 Heart rate 73 /min [facility] 01-17-2024 13:24-0500 Respiratory rate 16 /min [facility] 01-17-2024 13:24-0500 SaO2% (BldA) [Mass fraction] 99 % [facility] 01-17-2024 13:24-0500 Systolic blood pressure 126 mm[Hg] [facility] Encounters Encounter Date Encounter Type Care Provider Facility Start: 06-17-2025 End: 06-18-2025 Telephone encounter Dillan Santiago MD Work Phone: [facility] [place] Comment on above: Home Health Point of [...] Start: 06-03-2025 End: 06-03-2025 ambulatory DILLAN SANTIAGO Facility:[facility] Start: 05-20-2025 End: 05-26-2025 Telephone encounter Dillan Santiago MD Work Phone: [facility] [place] Comment on above: Forms Start: 05-18-2025 End: [...] Dillan Santiago MD Work Phone: [facility] [place] Start: 05-07-2025 End: 05-12-2025 Telephone encounter Dillan Santiago MD Work Phone: [facility] [place] Comment on above: [facility] request ing order Start: 05-06-2025 End: 05-07-2025 Telephone encounter Dillan Santiago MD Work Phone: [facility] [place] Comment on above: Anxiety Start: 05-06-2025 End: 05-06-2025 [facility] Start: 05-06-2025 End: 05-06-2025 Office [...] hip hemiarthroplasty Start: 05-06-2025 End: 05-06-2025 ambulatory [facility] Facility:[facility] Start: 05-04-2025 End: 05-04-2025 Telephone encounter Dillan Santiago MD Work Phone: [facility] [place] Comment on above: Edema Start: 05-01-2025 End: 05-02-2025 Refill Mariposa Salinas APRN.CNP Work Phone: [facility] [place] Comment on above: Refill Request Start: 04-27-2025 End: 05-05-2025 Telephone encounter Tom Baltazar PA-C Work Phone: Urology Comment on above: Orders (Self cathete r) Start: 04-24-2025 End: 04-24-2025 ambulatory Dillan Santiago MD Work Phone: [facility] [place] Start: 04-24-2025 End: 04-24-2025 Patient encounter procedure Dillan Santiago MD Work Phone: [facility] [place] Comment on above: Photographer News referral Start: 04-24-2025 End: 04-28-2025 Telephone encounter Dillan Santiago MD Work Phone: [facility] [place] Comment on above: Patient Update Start: 04-21-2025 [...] on above: Follow HH Request information from [facility] Start: 04-17-2025 End: 04-17-[address] Dillan Santiago MD Work Phone: [facility] Start: 04-17-2025 End: 04-17-2025 Patient encounter procedure Daya PEREZ -[facility] Work Phone: Start: 04-17-2025 End: 04-17-2025 Office outpatient visit 40 minutes Dillan Santiago MD Work Phone: [facility] [place] Comment on above: Ambulatory dysfuncti on (Primary [...] 3 (HCC) Start: 04-17-2025 End: 04-17-2025 ambulatory [facility] Facility:[facility] Start: 04-06-2025 ambulatory [facility] Facility:[facility] Start: 04-06-2025 Registered Referred Adele Gusman MD [facility] Start: 03-30-2025 End: 03-30-2025 Patient encounter procedure Daya PEREZ [facility] Work Phone: Start: 03-30-2025 End: 03-30-[address] Vadim Florence DO Work Phone: [facility] Work Phone: Start: 03-30-2025 End: 03-30-2025 Departed Referred Daya PEREZ [facility] Start: 03-30-2025 End: 03-30-2025 ambulatory Daya MEEHAN Facility:[facility] Start: 03-24-2025 End: 03-24-[address] Dillan Santiago MD Work Phone: -[facility] Start: 03-24-2025 End: 03-24-[address] Adele Gusman MD -[facility] Work Phone: Start: 03-23-2025 End: 03-23-2025 Departed Referred Adele Gusman MD -[facility] Start: 03-23-2025 End: 03-23-2025 ambulatory Dillan Santiago Facility:[facility] Start: 03-19-2025 End: 03-19-2025 Telephone encounter Kentrell Montgomery MSW Navigation Start: 03-09-2025 Non-patient / Non-visit Dr. Vadim munoz MD -[facility] Start: 03-09-2025 End: 03-09-[address] Vadim Florence DO Work Phone: [facility] Work Phone: Start: 03-09-2025 End: 03-09-[address] Garfield Yo MD -[facility] Work Phone: Start: 03-09-2025 End: 03-09-2025 ambulatory [facility] Facility:[facility] Start: 03-04-2025 End: 03-19-2025 Evaluation and management of inpatient Dr. Garfield Yo MD -Transitional Care Unit Start: 03-04-2025 Non-patient / Non-visit Dr. Jessica Tran MD -[facility] Work Phone: Start: 03-03-2025 Non-patient / Non-visit Dr. Jessica Tran MD -[facility] Work Phone: Start: 03-03-2025 End: 03-04-2025 Admission to same day surgery center Dillan Santiago MD Work Phone: [facility] Comment on above: Michaela Hip surgery Start: 03-03-2025 End: 03-04-2025 ambulatory Dillan Santiago MD Work Phone: [facility] Start: 03-02-2025 Non-patient / Non-visit Dr. Jessica Tran MD -[facility] Work Phone: Start: 03-01-2025 ambulatory Boston Boland ty:[facility] Start: 03-01-2025 End: 03-04-2025 Evaluation and management of inpatient Dr. Roro Long DO -[facility] 3 Work Phone: Start: 02-27-2025 End: 03-02-2025 Telephone encounter Kentrell Montgomery SUPPLY AND DISTRIBUTION MANAGER Navigation Start: 02-24-2025 End: 02-25-2025 Refill Dillan Santiago MD Work Phone: [facility] Comment on above: Refill Request Start: 02-22-2025 End: 02-22-2025 Follow-up encounter Walt Robles APRN.DOUBLE SPINDLE SHAPER OPERATOR Work Phone: [facility] Start: 02-19-2025 End: 02-19-2025 Telephone encounter Walt Robles APRN.DOUBLE SPINDLE SHAPER OPERATOR Work Phone: [facility] Comment on above: Clinical Update Start: 02-19-2025 End: 02-19-2025 ambulatory [facility] Facility:[facility] Start: 02-19-2025 End: 02-19-2025 Patient encounter procedure Walt Robles APRN.DOUBLE SPINDLE SHAPER OPERATOR Work Phone: [facility] Comment on above: Recurrent UTI (urina ry tract infection) (Primary Dx) Start: 02-18-2025 End: 04-20-2025 Follow-up encounter Dillan Santiago MD Work Phone: [facility] [place] Start: 02-18-2025 End: 02-27-2025 ambulatory Dillan Santiago MD Work Phone: [facility] Comment on above: Concern for future c are Start: 02-18-2025 End: 02-18-2025 Patient encounter procedure Mariposa Salinas APRN.DOUBLE SPINDLE SHAPER OPERATOR Work Phone: [facility] [place] Comment on above: Impacted cerumen of right ear (Primary Dx) Start: 02-17-2025 End: 02-17-2025 ambulatory [facility] Facility:[facility] Start: 02-04-2025 End: 02-04-2025 ambulatory SELF Facility:[facility] Start: 02-04-2025 End: 02-04-2025 Office [...] Dillan Santiago MD Work Phone: [facility] [place] Comment on above: Refill Request Start: 01-24-2025 ambulatory DILLAN SANTIAGO Facility:1 [id number] Start: 01-24-2025 End: 01-24-2025 Subsequent hospital visit by physician [facility] 1 Work Phone: [facility] Comment on above: Cognitive impairment , mild, so stated [G31.84] Start: 01-23-2025 End: 01-27-2025 ambulatory Dillan Santiago MD Work Phone: [facility] Comment on above: Clonazepam Start: 01-21-2025 End: 01-22-2025 Refill Dillan Santiago MD Work Phone: [facility] [place] Comment on above: Refill Request Start: 01-17-2025 End: 01-17-2025 Emergency department patient visit Dr. Vadim Florence DO -Emergency Department Work Phone: Start: 01-09-2025 End: 01-13-2025 ambulatory Dillan Santiago MD Work Phone: [facility] Comment on above: Handicap placard Start: 01-01-2025 End: 01-02-2025 ambulatory Dillan Santiago MD Work Phone: [facility] Comment on above: Taking new medicatio n Aricept Start: 12-31-2024 End: 01-01-2025 Refill Mariposa Older FOOD SERVICE CASHIER.DOUBLE SPINDLE SHAPER OPERATOR Work Phone: [facility] [place] Comment on above: Refill Request Start: 12-23-2024 End: 12-25-2024 Telephone encounter Tom Baltazar PA-C Work Phone: Urology Comment on above: Request Outside [facility] Records Start: 12-23-2024 End: 12-23-2024 ambulatory ED [facility] Facility:[facility] Start: 12-23-2024 End: 12-23-2024 Patient encounter procedure Tom Baltazar PA-C Work Phone: Urology Comment on above: Retention of urine, unspecified (Primary Dx); Self-catheterizes urinary bladder; Urinary problem Start: 12-15-2024 End: 12-15-2024 Refill Mariposa Older FOOD SERVICE CASHIER.DOUBLE SPINDLE SHAPER OPERATOR Work Phone: [facility] [place] Comment on above: Refill Request Start: 12-12-2024 End: 12-15-2024 Refill Mariposa Older FOOD SERVICE CASHIER.DOUBLE SPINDLE SHAPER OPERATOR Work Phone: [facility] [place] Comment on above: Refill Request Start: 12-10-2024 [...] Ambulates with cane Start: 12-10-2024 End: 12-10-2024 [facility] Facility:[facility] Start: 11-17-2024 End: 11-17-2024 [facility] Facility:[facility] Start: 11-11-2024 End: 11-21-2024 Refill Mariposa Older FOOD SERVICE CASHIER.DOUBLE SPINDLE SHAPER OPERATOR Work Phone: [facility] [place] Comment on above: Refill Request clonazePAM refill Start: 11-05-2024 End: 11-05-2024 Patient encounter procedure Mariposa Salinas FOOD SERVICE CASHIER.DOUBLE SPINDLE SHAPER OPERATOR Work Phone: [facility] [place] Comment on above: Encounter to [facility] (Primary Dx); Anxiety and depression; Hypothyroidism, unspecified type; Balance disorder; Ambulates with cane; Concern about memory; Self-catheterizes urinary bladder; Unable to void; Assistance needed for bathing; Lipid screening; Urinary problem Start: 11-05-2024 End: 11-05-2024 ambulatory MARIPOSA SALINAS Facility:[facility] Start: 11-05-2024 End: 11-06-2024 Refill Mariposa Salinas FOOD SERVICE CASHIER.DOUBLE SPINDLE SHAPER OPERATOR Work Phone: [facility] [place] Comment on above: Med Change Request Start: 01-17-2024 ambulatory Ludin Boland ty:[facility] Start: 01-17-2024 End: 01-17-2024 ambulatory [facility] Work Phone: Start: 01-17-2024 End: 01-17-2024 [facility] [address] Work [...] et rgnt auto w/o microscopy Dasha Plata APRN.DOUBLE SPINDLE SHAPER OPERATOR Work Phone: Start: 01-24-2025 MRI 3D BRAIN [...] Author Start: 05-06-2028 Diabetes Screening Diabetes Screenin [facility] Start: 11-17-2027 Diabetes Screening Diabetes [facility] Start: 06-03-2026 RSV Vaccine (1 - 1-d ose 75+ series) RSV Vaccine (1 - 1-dose 75+ series) [facility] Comment on above: Postponed from 08/17 (Declined at this time) Start: 07-20-2025 Influenza vaccination [facility] Start: 07-17-2025 End: 07-17-2025 Patient encounter procedure 07/17/2025 11:20 AM EDT Office Visit Internal Medicine [facility] [address] [place], [place] [id number] Dillan Santiago MD [address] [place], [place] [id number] 3 Month F/U Internal Medicine [facility] Comment on above: 3 Month F/U Start: 07-14-2025 End: 07-14-2025 Patient encounter procedure 07/14/2025 10:00 AM EDT Office Visit Podiatry [address] [place] [address] Da Klein [address] [place] [address] bilateral toenails/very thick Podiatry Comment on above: bilateral toenails/v jaxson thick Start: 06-03-2025 End: 06-03-2025 Patient encounter procedure 06/03/2025 11:00 AM EDT Office Visit Geriatrics [address] [place] [address] Dillan Santiago MD [address] [place] [address] 4 wk follow up Geriatrics Comment on above: 4 wk follow up Start: 05-25-2025 End: 05-25-2025 Patient encounter procedure 05/25/2025 8:00 AM EDT Office Visit Cardiology [address] [place] [address] Acute heart failure, unspecified heart failure type (HCC) [I50.9] Cardiology Comment on above: Acute heart failure, unspecified heart failure type (HCC) [I50.9] Start: 05-17-2025 Bacteria identified in Urine by Culture Urine Culture [facility] Start: 05-17-2025 End: 05-17-2025 [facility] Start: 05-17-2025 [facility] Start: 05-06-2025 End: 08-05-2025 Comprehensive metabolic 2000 panel - Serum or Plasma [facility] Comment on above: Expected: 05/06/2025 , Expires: 08/05/2025 Start: 05-06-2025 End: 08-05-2025 Hemoglobin A1c in Blood [facility] Comment on above: Expected: 05/06/2025 , Expires: 08/05/2025 Start: 05-06-2025 End: 08-05-2025 Natriuretic peptide.B prohormone N-Terminal [Mass/volume] in Serum or Plasma [facility] Comment on above: Expected: 05/06/2025 , Expires: 08/05/2025 Start: 05-06-2025 End: 05-06-2025 Patient encounter procedure 05/06/2025 11:30 AM EDT Office Visit Geriatrics [address] [place] [address] Dillan Santiago MD [address] [place] [address] 3 mo follow up Geriatrics Comment on above: 3 mo follow up Start: 03-19-2025 Removal of urinary catheter [facility] Start: 03-19-2025 Patient discharge [facility] Start: 03-18-2025 Development of care plan [facility] Start: 03-16-2025 [facility] Start: 03-14-2025 [facility] Start: 03-11-2025 [facility] Start: 03-11-2025 Incentive spirometry [facility] Start: 03-10-2025 Recommendation to co ntinue with treatment [facility] Start: 03-06-2025 [facility] Start: 03-05-2025 Speech therapy management [facility] Start: 03-05-2025 Development of care plan [facility] Start: 03-05-2025 Developing a treatme nt plan [facility] Start: 03-05-2025 Speech therapy assessment [facility] Start: 03-04-2025 End: 03-04-2025 Contact precautions [facility] Start: 03-04-[address] [facility] Start: 03-04-2025 Introduction of urin clay catheter [facility] Start: 03-04-2025 Measuring intake and output [facility] Start: 03-04-2025 Patient referral to dietitian [facility] Start: 03-04-2025 Referral to occupati onal therapist [facility] Start: 03-04-[address] [facility] Start: 03-04-2025 Verification routine [facility] Start: 03-04-2025 Vital signs measurements [facility] Start: 03-04-2025 End: 03-04-2025 [facility] Start: 03-04-2025 Following clinical p athway protocol [facility] Start: 03-04-2025 Patient discharge [facility] Start: 03-04-2025 Application of device [facility] Start: 03-03-2025 [facility] Start: 03-03-2025 [facility] Start: 03-03-2025 [facility] Start: 03-03-2025 [facility] Start: 03-03-2025 [facility] Start: 03-03-2025 [facility] Start: 03-03-2025 [facility] Start: 03-02-2025 [facility] Start: 03-02-2025 [facility] Start: 03-02-2025 [facility] Start: 03-02-2025 [facility] Start: 03-02-2025 [facility] Start: 03-02-2025 Provision of overbed trapeze [facility] Start: 03-02-2025 Recommendation to co ntinue with treatment [facility] Start: 03-02-2025 End: 03-02-2025 [facility] Start: 03-02-2025 Application of device [facility] Start: 03-02-2025 Assessment of risk o f venous thromboembolism [facility] Start: 03-02-2025 Catheterization of vein [facility] Start: 03-02-2025 Exercises [facility] Start: 03-02-2025 Following clinical p athway protocol [facility] Start: 03-02-2025 Introduction of urin clya catheter [facility] Start: 03-02-2025 Measuring intake and output [facility] Start: 03-02-2025 Neurovascular assessment [facility] Start: 03-02-2025 Patient education [facility] Start: 03-02-2025 Procedure discontinued [facility] Start: 03-02-2025 Provision of activit y privileges [facility] Start: 03-02-2025 Referral to occupati onal therapist [facility] Start: 03-02-[address] [facility] Start: 03-02-2025 Vital signs measurements [facility] Start: 03-02-2025 Wound care [facility] Start: 03-01-2025 Application of ice c ollar, cap or bag [facility] Start: 03-01-2025 Assessment of risk o f venous thromboembolism [facility] Start: 03-01-2025 Skin care [facility] Start: 03-01-2025 [facility] Start: 03-01-2025 Assessment of risk o f venous thromboembolism [facility] Start: 03-01-2025 Catheterization of vein [facility] Start: 03-01-2025 Consultation [facility] Start: 03-01-2025 Consultation for treatment [facility] Start: 03-01-2025 Following clinical p athway protocol [facility] Start: 03-01-2025 Inhalation therapy procedure [facility] Start: 03-01-2025 Insertion of cathete r into peripheral vein [facility] Start: 03-01-2025 Measuring intake and output [facility] Start: 03-01-2025 Oxygen therapy [facility] Start: 03-01-2025 Providing care accor ding to standard [facility] Start: 03-01-2025 Referral to occupati onal therapist [facility] Start: 03-01-[address] [facility] Start: 03-01-2025 [facility] Start: 03-01-2025 Hospital admission, emergency, from emergency room, medical nature [facility] Start: 03-01-2025 Verification routine [facility] Start: 03-01-[address] [facility] Start: 03-01-2025 End: 03-02-2025 [facility] Start: 03-01-2025 [facility] Start: 02-18-2025 End: 02-18-2025 Patient encounter procedure 02/18/2025 10:20 AM EDT Office Visit Internal Medicine [place] [address] [place] [address] Mariposa Salinas APRN.[facility] [address] [place] [address] ear lavage [facility] Comment on above: ear lavage Start: 02-04-2025 End: 05-06-2025 Thyrotropin [Units/volume] in Serum or Plasma THYROID STIMULATING HORMONE Lab Routine Expected: 02/04/2025, Expires: 05/06/2025 [facility] Work Phone: Comment on above: Expected: 02/04/2025 , Expires: 05/06/2025 Start: 02-04-2025 End: 02-04-2025 Patient encounter procedure 02/04/2025 11:20 AM EDT Office Visit Internal Medicine [facility] [address] [place] [address] Mariposa Salinas APRN.[employer] [address] [place] [address] 3 month follow up [facility] [place] Comment on above: 3 month follow up Start: 01-24-2025 End: 01-24-2025 Patient encounter procedure 01/24/2025 12:30 PM EST Appointment [facility] [address] [place] [address] MRI BRAIN W QUANT WO IVCON, Cognitive [...] Office Visit Urology [address] [place] [address] Tom Baltazar PA-C [address] [place] [address] 1 YR F/U Urology Comment on above: 1 YR F/U Start: 12-23-2024 End: 12-23-2024 Patient encounter procedure 12/23/2024 10:00 AM EST Office Visit Urology [address] [place] [address] Tom Baltazar PA-C [address] [place] [address] Self-catheterizes urinary bladder [Z78.9] Urology Comment on above: Self-catheterizes ur inary bladder [Z78.9] Start: 12-10-2024 End: 12-10-2024 Patient encounter procedure 12/10/2024 12:30 PM EST Office Visit Geriatrics [address] [place] [address] Dillan Santiago MD [address] [place] [address] Self-catheterizes urinary bladder [Z78.9] Geriatrics Comment on above: Self-catheterizes ur inary bladder [Z78.9] Start: 11-19-2024 Advance Directive Discussion Advance Directive Discussion [facility] Start: 11-19-2024 Medicare Advantage A nnual Wellness Visit Medicare Advantage Annual Wellness Visit [facility] Start: 11-05-2024 End: 02-04-2025 CBC panel - Blood by Automated count COMPLETE BLOOD COUNT Lab Routine Concern about memory Expected: 11/05/2024, Expires: 02/04/2025 [facility] Comment on above: Expected: 11/05/2024 , Expires: 02/04/2025 Start: 11-05-2024 End: 02-04-2025 Cobalamin (Vitamin B12) [Mass/volume] in Serum or Plasma VITAMIN B12 Lab Routine Concern about memory Expected: 11/05/2024, Expires: 02/04/2025 [facility] Comment on above: Expected: 11/05/2024 , Expires: 02/04/2025 Start: 11-05-2024 End: 02-04-2025 Comprehensive metabolic 2000 panel - Serum or Plasma COMPREHENSIVE METABOLIC PANEL Lab Routine Concern about memory Lipid screening Expected: 11/05/2024, Expires: 02/04/2025 [facility] Comment on above: Expected: 11/05/2024 , Expires: 02/04/2025 Start: 11-05-2024 End: 02-04-2025 Lipid 1996 panel - Serum or Plasma LIPID PANEL BASIC Lab Routine Lipid screening Expected: 11/05/2024, Expires: 02/04/2025 [facility] Work Phone: Comment on above: Expected: 11/05/2024 , Expires: 02/04/2025 Start: 11-05-2024 End: 02-04-2025 Thyrotropin [Units/volume] in Serum or Plasma THYROID STIMULATING HORMONE Lab Routine Concern about memory Hypothyroidism, unspecified type Expected: 11/05/2024, Expires: 02/04/2025 [facility] Comment on above: Expected: 11/05/2024 , Expires: 02/04/2025 Start: 11-05-2024 End: 02-04-2025 Thyroxine (T4) free [Mass/volume] in Serum or Plasma T4 FREE/FREE THYROXINE Lab Routine Concern about memory Hypothyroidism, unspecified type Expected: 11/05/2024, Expires: 02/04/2025 [facility] Comment on above: Expected: 11/05/2024 , Expires: 02/04/2025 Start: 11-05-2024 End: 02-04-2025 Triiodothyronine (T3) Free [Mass/volume] in Serum or Plasma T3, FREE Lab Routine Concern about memory Hypothyroidism, unspecified type Expected: 11/05/2024, Expires: 02/04/2025 [facility] Comment on above: Expected: 11/05/2024 , Expires: 02/04/2025 Start: 07-20-2024 Covid-19 Vaccine ( season) Covid-19 Vaccine ( season) [facility] Start: 07-20-2024 Influenza vaccination Influenza Vacc ine (#1) [facility] Start: 02-09-2024 Patient referral [facility] Work Phone: Start: 01-17-2024 Radiologic examinati on of knee XR knee LT 4V [facility] Start: 02-28-2020 Pneumococcal Vaccine : 50+ (2 of 2 - PCV) Pneumococcal Vaccine: 50+ (2 of 2 - PCV) [facility] Start: 2015 RSV Vaccine (1 - 1-d ose 75+ series) RSV Vaccine (1 - 1-dose 75+ series) [facility] Start: 01-14-2009 Shingrix Vaccine (2 of 3) Bran grix Vaccine (2 of 3) [facility] Start: 2005 Screening for osteoporosis Bone Dens ity Screening [facility] Start: 1985 Diabetes Screening Diabetes Screenin g [facility] Start: 1959 Urine microalbumin profile DTa P,Tdap,Td Vaccine (1 - Tdap) [facility] Start: 1958 Anxiety Screening Anxiety Screening [facility] Start: 1958 Depression Screening Depression Scre ening [facility] Anion gap in Serum o r Plasma [facility] Anion gap in Serum o r Plasma [facility] Anion gap in Serum o r Plasma [facility] Anion gap in Serum o r Plasma [facility] Anion gap in Serum o r Plasma [facility] Bacteria identified in Urine by Culture BACTERIAL CULTURE, URINE Microbiology Routine Urinary frequency Ordered: 02/19/2025 [facility] Work Phone: Comment on above: Ordered: 02/19/2025 BUN/Creatinine ratio [facility] BUN/Creatinine ratio [facility] BUN/Creatinine ratio [facility] BUN/Creatinine ratio [facility] BUN/Creatinine ratio [facility] Calcium [Mass/volume ] in Serum or Plasma [facility] Calcium [Mass/volume ] in Serum or Plasma [facility] Calcium [Mass/volume ] in Serum or Plasma [facility] Calcium [Mass/volume ] in Serum or Plasma [facility] Calcium [Mass/volume ] in Serum or Plasma [facility] Carbon dioxide, tota l [Moles/volume] in Central venous blood [facility] Carbon dioxide, tota l [Moles/volume] in Central venous blood [facility] Carbon dioxide, tota l [Moles/volume] in Central venous blood [facility] Carbon dioxide, tota l [Moles/volume] in Central venous blood [facility] Carbon dioxide, tota l [Moles/volume] in Central venous blood [facility] Creatinine [Mass/vol ume] in Serum or Plasma [facility] Creatinine [Mass/vol ume] in Serum or Plasma [facility] Creatinine [Mass/vol ume] in Serum or Plasma [facility] Creatinine [Mass/vol ume] in Serum or Plasma [facility] Creatinine [Mass/vol ume] in Serum or Plasma [facility] End: 05-06-2026 Echocardiography ECHO Cardiology [facility] Acute heart failure, unspecified heart failure type (HCC) 1 Occurrences starting 05/06/2025 until 05/06/2026 [facility] Work Phone: Comment on above: 1 Occurrences starti ng 05/06/2025 until 05/06/2026 Erythrocyte mean corpuscular volume determination [facility] Erythrocyte mean corpuscular volume determination [facility] Erythrocyte mean corpuscular volume determination [facility] Erythrocyte mean corpuscular volume determination [facility] Erythrocyte mean corpuscular volume determination [facility] Glucose [Mass/volume ] in Serum or Plasma [facility] Glucose [Mass/volume ] in Serum or Plasma [facility] Glucose [Mass/volume ] in Serum or Plasma [facility] Glucose [Mass/volume ] in Serum or Plasma [facility] Glucose [Mass/volume ] in Serum or Plasma [facility] Hematocrit [Volume Fraction] of Blood [facility] Hematocrit [Volume Fraction] of Blood [facility] Hematocrit [Volume Fraction] of Blood [facility] Hematocrit [Volume Fraction] of Blood [facility] Hematocrit [Volume Fraction] of Blood [facility] Hemoglobin [Mass/vol ume] in Blood [facility] Hemoglobin [Mass/vol ume] in Blood [facility] Hemoglobin [Mass/vol ume] in Blood [facility] Hemoglobin [Mass/vol ume] in Blood [facility] Hemoglobin [Mass/vol ume] in Blood [facility] Leukocytes [#/volume ] in Blood [facility] Leukocytes [#/volume ] in Blood [facility] Leukocytes [#/volume ] in Blood [facility] Leukocytes [#/volume ] in Blood [facility] Leukocytes [#/volume ] in Blood [facility] Mean corpuscular hemoglobin concentration determination [facility] Mean corpuscular hemoglobin concentration determination [facility] Mean corpuscular hemoglobin concentration determination [facility] Mean corpuscular hemoglobin concentration determination [facility] Mean corpuscular hemoglobin concentration determination [facility] Mean corpuscular hemoglobin determination [facility] Mean corpuscular hemoglobin determination [facility] Mean corpuscular hemoglobin determination [facility] Mean corpuscular hemoglobin determination [facility] Mean corpuscular hemoglobin determination [facility] Measurement of renal function [facility] Measurement of renal function [facility] Measurement of renal function [facility] Measurement of renal function [facility] Measurement of renal function [facility] End: 01-09-2026 MR Brain WO contrast MRI BRAIN W QUANT WO IVCON Radiology Routine Cognitive impairment, mild, so stated 1 Occurrences starting 12/10/2024 until 01/09/2026 [facility] Work Phone: Comment on above: 1 Occurrences starti ng 12/10/2024 until 01/09/2026 End: 01-09-2026 MR Unspecified body region 3D post processing MRI 3D BRAIN QUANT Radiology Routine Cognitive impairment, mild, so stated 1 Occurrences starting 12/10/2024 until 01/09/2026 [facility] Comment on above: 1 Occurrences starti ng 12/10/2024 until 01/09/2026 Neutrophil count [facility] Neutrophil count [facility] Neutrophil count [facility] Neutrophil count [facility] Neutrophil count [facility] Neutrophil percent differential count [facility] Neutrophil percent differential count [facility] Neutrophil percent differential count [facility] Neutrophil percent differential count [facility] Neutrophil percent differential count [facility] Patient Education [facility] Work Phone: Patient referral [facility] Work Phone: Platelets [#/volume] in Blood [facility] Platelets [#/volume] in Blood [facility] Platelets [#/volume] in Blood [facility] Platelets [#/volume] in Blood [facility] Platelets [#/volume] in Blood [facility] Potassium measurement [facility] Potassium measurement [facility] Potassium measurement [facility] Potassium measurement [facility] Potassium measurement [facility] Red blood cell count [facility] Red blood cell count [facility] Red blood cell count [facility] Red blood cell count [facility] Red blood cell count [facility] Red cell distributio n width determination [facility] Red cell distributio n width determination [facility] Red cell distributio n width determination [facility] Red cell distributio n width determination [facility] Red cell distributio n width determination [facility] Removal impacted cer umen irrigation/lvg unilat AMBULATORY EAR LAVAGE/IRRIGATION Procedures Routine Impacted cerumen of right ear Ordered: 02/18/2025 [facility] Work Phone: Comment on above: Ordered: 02/18/2025 Serum chloride measurement [facility] Serum chloride measurement [facility] Serum chloride measurement [facility] Serum chloride measurement [facility] Serum chloride measurement [facility] Sodium measurement [facility] Sodium measurement [facility] Sodium measurement [facility] Sodium measurement [facility] Sodium measurement [facility] Urea nitrogen [Mass/volume] in Serum or Plasma [facility] Urea nitrogen [Mass/volume] in Serum or Plasma [facility] Urea nitrogen [Mass/volume] in Serum or Plasma [facility] Urea nitrogen [Mass/volume] in Serum or Plasma [facility] Urea nitrogen [Mass/volume] in Serum or Plasma [facility] Urine culture [facility] Immunizations Immunization Date Immunization Notes Care Provider [facility] 10-31-2022 influenza (aIIV4) vaccine, age 65+ yr, quadrivalent, PF (FLUAD QUAD) Dillan Santiago MD Work Phone: [facility] 10-31-2022 influenza virus vacc ine, unspecified formulation Mariposa Salinas APRN.[employer] Work Phone: [facility] 10-06-2021 influenza (aIIV4) vaccine, age 65+ yr, quadrivalent, PF (FLUAD QUAD) Dillan Santiago MD Work Phone: [facility] 02-27-2019 pneumococcal polysaccharide vaccine, [address] Vadim Florence DO Work Phone: [facility] 08-19-2009 pneumococcal conjuga te vaccine, [address] Vadim Florence DO Work Phone: [facility] 11-19-2008 zoster vaccine, live Dillan Santiago MD Work Phone: [facility] Payers Date Payer Category Payer Self-pay [id number] 2023 Medicare [facility] MED[facility]ARE [facility] MEDICARE ADVANTAGE PPO [id number] 2023-Present [phone] [address] [address] [place] [address] PPO [id number] 2023 Medicare (Managed Care) [facility] MED[facility] CARE ADVANTAGE PPO [id number] 2023 Medicare [id number] Medicare [id number] Medicare Medicare Part A & B [id number] Unknown [place] [facility] U [id number] Unknown [id number]. 2.462 Unknown [id number] 2.840.1.859351.3.579. 2.462 Unknown [id number] 2.840.1.191324.3.579. 2.462 Unknown [id number] 2.0.1.885444.3.579. 2.462 Unknown [id number] 2.16.840.1.756290.3.579. 2.462 Unknown [id number] 2.16.840.1.892463.3.579. 2.462 Unknown [id number] 2.16.840.1.194174.3.579. 2.462 Unknown [id number] 2.16.840.1.201976.3.579. 2.462 Unknown [id number] 2.16.840.1.452715.3.579. 2.462 Unknown [id number] 2.16.840.1.559366.3.579. 2.462 Unknown [id number] 2.16.840.1.436314.3.579. 2.462 Unknown [id number] 2.16.840.1.746651.3.579. 2.462 Unknown [id number] 2.16.840.1.864841.3.579. 2.462 Unknown [id number] 2.16.840.1.469893.3.579. 2.462 Unknown [id number] 2.16.840.1.456826.3.579. 2.462 Unknown [id number] 2.16.840.1.947528.3.579. 2.462 Social History Date Type Detail Facility Tobacco smoking status NHIS Unknown if ever smoked [facility] Work Phone: Start: 11-04-2019 Never Smoker The [facility] Start: 10-29-2019 No History The [facility] Start: 10-29-2019 up to date / s hingle up to date [facility] Start: 1940 Sex Assigned At Female T he [facility] Start: 11-05-2024 End: 05-17-2025 Tobacco smoking status NHIS Never smoked tobacco [facility] Start: 11-05-2024 Tobacco use and exposure Smokeless tobacco non-user [facility] Start: 11-05-2024 End: 07-16-2025 Alcoholic beverage intake Lifetime non-drinker (finding) [facility] Start: 11-05-2024 End: 04-17-2025 History of Social function [facility] Start: 11-05-2024 End: 04-17-2025 Tobacco use panel [facility] National Score (1-100), lower number is lower risk 72 [facility] Start: 1940 Sex assigned at Not on file [facility] Start: 12-10-2024 Education 15 [facility] Start: 03-01-2025 Tobacco smoking status NHIS Tobacco smoking consumption unknown (finding) [facility] Start: 03-01-2025 End: 03-12-2025 Sex Female (finding) [facility] Has the electric, gas, oil, or water company threatened to shut off services in your home in past 12Mo No [facility] Are you now , , , , never or living with a partner? [facility] How often to you hav e a drink containing alcohol? Never [facility] How hard is it for you to pay for the very basics like food, housing, medical care, and heating Not very hard [facility] Do you feel stress - tense, restless, nervous, or anxious, or unable to sleep at night because your mind is troubled all the time - these days [OSQ] Very much [facility] (I/We) worried whether (my/our) food would run out before (I/we) got money to buy more. Never true [facility] NEGATED: Highlighted row Not [facility] Medical Equipment Procedure Code Equipment Code Equipment Origin al Text Equipment Identifier Dates ORIF, hip, using Gamma nail ([id number]) Orthopaedic bone screw, non-bioabsorbable, sterile [id number] FDA Start: 03-02-2025 ORIF, hip, using Gamma nail ([id number]) Femur nail, sterile [id number] FDA Start: 03-02-2025 Goals Date Patient Goal Desired Activity /State Functional Status Date Assessment Result Facility 04-17-2025 Total score [AUDIT-C] 0 04/17/20 25 9:21 AM EDT User, Mychart [facility] 04-17-2025 How often to you hav e a drink containing alcohol? Never 04/17/2025 9:21 AM EDT User, Josehart Never [facility] 04-17-2025 Functional status Patient does n ot drink 04/17/2025 9:21 AM EDT User, Lynne Patient does not drink [facility] 04-17-2025 How often do you hav e 6 or more drinks on 1 occasion? Never 04/17/2025 9:21 AM EDT UserLynne Never [facility] 03-19-2025 Functional status Chair [facility] Work Phone: 03-18-2025 Functional status Tolerates Activity Well [facility] Work Phone: 03-12-2025 Functional status Ambulates [facility] Work Phone: 03-11-2025 Functional status Tolerates Activity Fair [facility] Work Phone: 03-04-2025 Functional status Back to bed [facility] Work Phone: Mental Status Date Assessment Result Facility 05-17-2025 Cognitive function Voice/Name [facility] Work Phone: 03-19-2025 Cognitive function Voice/Name [facility] Work Phone: 03-12-2025 Cognitive function Cooperative [facility] Work Phone: 03-11-2025 Cognitive function Voice/Name [facility] Work Phone: 03-04-2025 Cognitive function Voice/Name [facility] Work Phone: 01-17-2025 Cognitive function Voice/Name [facility] Work Phone: Clinical Notes 11-05-2024 to 06-18-2025 Telephone Encounter - Gabi Mcelroy RN - 06/18/2025 1:43 PM EDTTelephone Encounter - Gabi Mcelroy RN - 06/18/2025 1:43 PM EDTTelephone Encounter - Dillan Santiago MD - 06/18/2025 1:35 PM EDT Note Date & Type Note Facility 06-18-2025 Telephone encount er Note Called and left a detailed voicemail notifying Brissa from [facility] of providers message. Clinic phone number was left in case she had any questions. Gabi Mcelroy RN [facility] 06-18-2025 Miscellaneous Notes Formattin g of this note might be different from the original. Called and left a detailed voicemail notifying Brissa from [facility] of providers message. Clinic phone number was left in case she had any questions. Gabi Mcelroy RN Noted and agree Regards, Dillan Santiago MD Brissa from [facility] called in to let provider know that [...] Gabi Mcelroy RN documented in this encounter [facility] 06-18-2025 Telephone encount er Note Noted and agree Regards, Dillan Santiago MD [facility] 06-17-2025 Telephone encount er Note Brissa from [facility] called in to let provider know that she went out to recertify the Pt. She reports nursing will be seeing the Pt once a week for 6 weeks to monitor a stage 2 ulcer on the L buttock. She states it is 0.3 x 0.3, so it is almost healed. They are just putting Triad cream on it now. Gabi Mcelroy RN [facility] 06-03-2025 Note HNO ID: [id number] Author: DILLAN SANTIAGO MD Service: ? Author [...] a month ago, which was treated at [facility]. Michaela expresses reluctance to continue self-catheterization due to the risk of introducing infections and is considering a suprapubic catheter as an alternative. Michaela has not yet undergone an echocardiogram that was previously scheduled. She expresses a desire to reschedule the appointment. Michaela is also experiencing issues with thickened toenails, which are causing discomfort when wearing shoes. She has an appointment with a size cutter next month for evaluation and treatment. Michaela [...] Michaela's daughter, who currently holds power of seasonal package handler, is trying to prevent this. Michaela expresses [...] of recurrent UTIs, most recently treated at [facility]. Currently self-catheterizing four times daily, which increases [...] sleep. - Refill (more content not included)... [facility] 06-03-2025 History of Presen t illness Narrative [...] a month ago, which was treated at [facility]. Michaela expresses reluctance to continue self-catheterization due to the risk of introducing infections and is considering a suprapubic catheter as an alternative. Michaela has not yet undergone an echocardiogram that was previously scheduled. She expresses a desire to reschedule the appointment. Michaela is also experiencing issues with thickened toenails, which are causing discomfort when wearing shoes. She has an appointment with a size cutter next month for evaluation and treatment. Michaela [...] Michaela's daughter, who currently holds power of seasonal package handler, is trying to prevent this. Michaela expresses [...] of recurrent UTIs, most recently treated at [facility]. Currently self-catheterizing four times daily, which increases [...] any unintended typographical errors. Recording using ambient [employer] software for draft documentation of the visit was discussed with the patient/authorized marketing sales representative; all questions welcomed and answered. Patient/authorized marketing sales representative agreed to proceed Spent more than 40 mins face to face with patient Dillan Santiago MD documented in this encounter [facility] 06-03-2025 Instructions Dillan Santiago MD - [...] This condition requires specialized care from a size cutter, as regular nail trimming is not sufficient. - You already have an appointment scheduled with podiatry in June. At that visit, they will assess your nails and provide appropriate treatment. - I documented the findings in your chart to ensure the size cutter is aware of the condition and can [...] contact our office. documented in this encounter [facility] 05-26-2025 Telephone encount er Note Forms completed and faxed back to # provided: [phone]. Mike Guo MA [facility] 05-26-2025 Miscellaneous Notes Formattin g of this note might be different from the original. Forms completed and faxed back to # provided: [phone]. Mike Guo MA Forms given to PCP for review/signature. Mike Guo MA Patient's daughter dropped off forms that need [facility], att [phone]. Forms given to nurse. Please assist. documented in this encounter [facility] 05-20-2025 Telephone encount er Note Forms given to PCP for review/signature. Mike Guo MA [facility] 05-20-2025 Telephone encount er Note Patient's daughter dropped off forms that need filled out and faxed to Hermax Nunez, ATTN Nory, att [phone]. Forms given to nurse. Please assist. [facility] 05-17-2025 Discharge summary [facility] 05-12-2025 Telephone encounter Note Phoned Ivis and given provider's message below. Ivis states she believes pt is taking the lasix as ordered 2 x's a week. Ivis is not at work today but will double check when she goes back and call back if there has been a change in how pt is taking the lasix. [facility] 05-12-2025 Miscellaneous Notes Phoned Ivis and [...] week? Regards, Dillan Santiago MD [facility] reports pt has fine crackles in the bases of her lungs again. Reports patient denies Shortness of Breath, and the swelling has decreased. No fever. Otherwise, besides pt's anxiety she feels great. Asking if pcp wants to order a CXR? If pcp wants to order a CXR please fax order to Jose M Zheng at fax # [phone] Please advise and phone Ivis with reply: [phone] documented in this encounter [facility] 05-11-2025 Telephone encounter Note Do not want chest xr just yet Is she taking her lasix as ordered, 2 times a week? Dillan Patel MD [facility] 05-08-2025 Telephone encounter Note Daughter Maribeth notified. [facility] 05-08-2025 Miscellaneous Notes Daughter Maribeth notified. [...] Dillan Patel MD documented in this encounter [facility] 05-08-2025 Telephone encounter Note ----- Message [...] the next couple months. Dillan Patel MD [facility] 05-07-2025 Telephone encounter Note The following approved medication requests have been transmitted electronically. Requested Prescriptions Signed Prescriptions Disp Refills busPIRone (BUSPAR) 5 mg tablet 60 tablet 3 Sig: Take 1 tablet by mouth two times a day. Authorizing Provider: DILLAN SANTIAGO MA [facility] 05-07-2025 Miscellaneous Notes The following approved medication requests have been transmitted electronically. Requested Prescriptions Signed Prescriptions Disp Refills busPIRone (BUSPAR) 5 mg tablet 60 tablet 3 Sig: Take 1 tablet by mouth two times a day. Authorizing Provider: DILLAN SANTIAGO MA I started her on buspar. Regards, Dillan Santiago MD Gabi PT with [facility] calls to let provider know that patient [...] Kecia Red RN documented in this encounter [facility] 05-07-2025 Telephone encounter Note [facility] reports pt has fine crackles in the bases of her lungs again. Reports patient denies Shortness of Breath, and the swelling has decreased. No fever. Otherwise, besides pt's anxiety she feels great. Asking if pcp wants to order a CXR? If pcp wants to order a CXR please fax order to Jose M Zheng at fax # [phone] Please advise and phone Ivis with reply: [phone] [facility] 05-06-2025 Telephone encounter Note I started her on buspar. Regards, Dillan Santiago MD T [facility] 05-06-2025 Telephone encounter Note Gabi PT with [facility] calls to let provider know that patient [...] review and advise. Kecia Red, ZACHARIAH T [facility] 05-06-2025 Note HNO ID: [id number] Author: DILLAN SANTIAGO MD Service: ? Author [...] is currently receiving home care services, including halfway, physical therapy, and occupational therapy. She has aides assisting her from [phone] and [phone] daily. Due to financial constraints, the family [...] mg tablet Catheter (SELF-CATHETER, FEMALE) 14 [facility] Health Maintenance DTaP,Tdap,Td Vaccine(1 - Tdap) Bone [...] self-catheterization. Patient expresses (more content not included)... [facility] 05-06-2025 History of Presen t illness Narrative Reason for Visit Follow up HPI Michaela Brandt is a 84-year-old female, with a history of urinary retention requiring self-catheterization, presenting for follow-up on lower extremity edema and urinary catheter management. She is accompanied by her daughter, who is providing additional history. Michaela is currently receiving home care services, including halfway, physical therapy, and occupational therapy. She has aides assisting her from [phone] and [phone] daily. Due to financial constraints, the family [...] mg tablet Catheter (SELF-CATHETER, FEMALE) 14 [facility] Health Maintenance DTaP,Tdap,Td Vaccine(1 - Tdap) Bone [...] of 6 months. - Prescription sent to [facility] pharmacy for 3 months supply. 5. Edema, [...] excuse any unintended typographical errors. Recording using [employer] software for draft documentation of the visit was discussed with the patient/authorized marketing sales representative; all questions welcomed and answered. Patient/authorized marketing sales representative agreed to proceed Dillan Santiago MD documented in this encounter [facility] 05-04-2025 Telephone encounter Note Detailed message on secure [employer]. Pamela Power MA May 04, 2025 4:11 PM [facility] 05-04-2025 Miscellaneous Notes Detailed message on secure voicemail. Pamela Power MA May 04, 2025 4:11 PM Verbal ok to order all these labs chest x-ray, BNP, CMP, and A1C for patient? Regards, Dillan Santiago MD Brittni with [facility] calls in regards to TE from 04/24: Solange Craig RN MG 04/24/25 11:13 AM Note Brissa from [facility] is calling due to she saw patient [...] Nisha Clayton LPN documented in this encounter [facility] 05-04-2025 Telephone encounter Note I dont usually do the catheters and have not done for her. I would like Urology to take care of this Regards, Dillan Santiago MD [facility] 05-04-2025 Miscellaneous Notes I dont usually [...] of orders. Please fax to Savanah at [facility] [phone]. JAIRON notes faxed through [employer]. Ophelia Ansari MA documented in this encounter [facility] 05-04-2025 Telephone encounter Note Verbal ok to order all these labs chest x-ray, BNP, CMP, and A1C for patient? Regards, Dillan Santiago MD [facility] 05-04-2025 Telephone encounter Note Images from the original note were not included. Tom Baltazar PA-C You3 days ago Yea I though Silas was doing this VADIM Stanford MT, PAManjeetC You Tom Baltazar, LACY-C5 days ago KURTIS Hayes, do you want this sent to PCP to address? Patient was seen previously by you you once and was to [facility]. Nusrat Palmer LPN [facility] 05-04-2025 Telephone encounter Note Brittni with [facility] calls in regards to TE from 04/24: Solange Craig RN 04/24/25 11:13 AM Note Brissa from [facility] is calling due to she saw patient [...] above labs and CXR. Nisha Clayton LPN [facility] 05-02-2025 Telephone encounter Note Spoke to [place]/Rupali, Patient just picked up Celexa 20mg RX yesterday, 05/01/2025, she has refills remaining. Radha Haro LPN T [facility] 05-02-2025 Miscellaneous Notes Spoke to [place]/Rupali, Patient just picked up Celexa 20mg RX yesterday, 05/01/2025, she has refills remaining. Radha Haro LPN documented in this encounter [facility] 05-01-2025 Telephone encounter Note PDMP website checked and validated. All prescriptions have been APPROPRIATELY filled. No suspicious activity was identified. 05/01/2025 by Mariposa Salinas APRN.CNP [facility] 05-01-2025 Miscellaneous Notes PDMP website checked [...] Marisol Tomlinson MA. documented in this encounter [facility] 05-01-2025 Telephone encounter Note Patient has [...] Please advise. Thank you. Marisol Tomlinson MA. [facility] 04-27-2025 Telephone encounter Note JAIRON 12/23/24 [facility] 04-27-2025 Telephone encounter Note Home health care requesting orders for catheter. Patient was sent home from ortho rehab with a catheter but has pulled it out. Patient is fighting placed catheter but home health reports cognitive issues and doubts her ability to straight cath. Home health requesting catheter size and placement of orders. Please fax to Savanah at [facility] [phone]. JAIRON notes faxed through [employer]. Ophelia Ansari MA [facility] 04-24-2025 Telephone encounter Note Pts daughter called in and was asking about if she should take her mother to [facility] ER or a [facility] ER. She states since she is affiliated with [facility] would it be in her best interest to just go to the [facility]. I told her that is up to her, but the closest one would be [facility], [facility], or [facility]. She said if they went to [facility] they could always get her transfer to a [facility] facility. I told her it really depends on what they find when they do blood work when she get there. She said she would talk it over with her . Gabi Mcelroy RN T [facility] 04-24-2025 Miscellaneous Notes Pts daughter called in and was asking about if she should take her mother to [facility] ER or a [facility] ER. She states since she is affiliated with [facility] would it be in her best interest to just go to the [facility]. I told her that is up to her, but the closest one would be [facility], [facility], or [facility]. She said if they went to [facility] they could always get her transfer to [...] Daughter agreeable. Porsha Vasquez RN Brissa from [facility] is calling due to she saw patient [...] back with information. documented in this encounter [facility] 04-24-2025 Telephone encounter Note Patient's daughter [...] all sx's. Daughter agreeable. Porsha Vasquez RN [facility] 04-24-2025 Telephone encounter Note Patient active MyChart. Patient notified via [employer] message. Mike Guo MA [facility] 04-24-2025 Miscellaneous Notes Patient active MyChart. Patient notified via [employer] message. Mike Guo MA Ordered as requested Regards, Dillan Santiago MD documented in this encounter [facility] 04-24-2025 Telephone encounter Note Ordered as requested Regards, Dillan Santiago MD [facility] 04-24-2025 Telephone encounter Note Brissa from [facility] is calling due to she saw patient [...] advise, nurse needs called back with information. [facility] 04-22-2025 Telephone encounter Note Called and spoke to patients jossie Stahl, will forward message to [facility] Mckenzie Lombardo LPN April 22, 2025 9:42 AM [facility] 04-22-2025 Miscellaneous Notes Called and spoke to patients jossie Stahl, will forward message to [facility] Mckenzie Lombardo LPN April 22, 2025 [...] Nisha Clayton LPN documented in this encounter [facility] 04-21-2025 Telephone encounter Note Would consider Compression stockings to be put on her and lifting her legs If that does not work we can give her a little lasix. RegardsDillan MD [facility] 04-21-2025 Telephone encounter Note Larisa with [...] foot is not painful. Nisha Clayton LPN [facility] 04-20-2025 Telephone encounter Note See TE from 04/20/25 My CAO with [facility] was going to have updated medication list faxed over to provider office. Gabi Mcelroy RN [facility] 04-20-2025 Miscellaneous Notes See TE from 04/20/25 My CAO with [facility] was going to have updated medication list faxed over to provider office. Gabi Mcelroy RN TC to nurse at [facility] to obtain current med list. Unable to reach. [facility] PCP office needs updated med list. Mike Guo MA documented in this encounter [facility] 04-20-2025 Telephone encounter Note Called and left a detailed voicemail notifying My CAO with [facility] of providers message. Clinic phone number was left in case she had any questions. Gabi Mcelroy RN [facility] 04-20-2025 Miscellaneous Notes Called and left a detailed voicemail notifying My CAO with [facility] of providers message. Clinic phone number was left in case she had any questions. Gabi Mcelroy RN Verbal ok for the same Regards, Dillan Santiago MD My with [facility] called and is notified of providers message. She voices understanding and reports that yes she does need the orders for the 16 uruguayan indwelling lizarraga. She states she can take a verbal order for that and we can leave a VM as her line is secure. She is also going to have her office fax over an updated [facility] list [facility] when she is done with her note. Gabi Mcelroy RN Agree Does she need orders for the 16 uruguayan indwelling lizarraga? Thanks Regards, Dillan Santiago MD Call received from My nurse at [facility], regarding orders for Pt (see below notation). [facility] nurse observed Pt self-cath, and she was not cleansing herself well. Pt's daughter is voicing concern about Pt's inability to do this at home. [facility] is requesting order for chronic indwelling lizarraga cathether, 16F. Last OV with urology - Tom Baltazar PA-C: 12/23/2024 My [facility] nurse phone: [facility] office phone: Fax number for orders: Josy [...] [facility] if she could fax that to Dr Santiago at [phone]. Gabi Mcelroy, RN My CAO with [facility] [...] that [facility] a lizarraga catheter in, and [...] Gabi Mcelroy RN documented in this encounter [facility] 04-20-2025 Telephone encounter Note Verbal ok for the same Regards, Dillan Santiago MD [facility] 04-20-2025 Telephone encounter Note My SN with [facility] called and is notified of providers message. She voices understanding and reports that yes she does need the orders for the 16 uruguayan indwelling lizarraga. She states she can take a verbal order for that and we can leave a VM as her line is secure. She is also going to have her office fax over an updated medication list [facility] when she is done with her note. Gabi Mcelroy RN [facility] 04-20-2025 Telephone encounter Note Agree Does she need orders for the 16 uruguayan indwelling lizarraga? Thanks Regards, Dillan Santiago MD [facility] 04-20-2025 Telephone encounter Note Call received from nurse My at [facility], regarding orders for Pt (see below notation). [facility] nurse observed Pt self-cath, and she was not cleansing herself well. Pt's daughter is voicing concern about Pt's inability to do this at home. [facility] is requesting order for chronic indwelling lizarraga cathether, 16F. Last OV with urology - oTm Baltazar PA-C: 12/23/2024 My [facility] nurse phone: [facility] office phone: Fax number for orders: Josy Saucedo RN April 20, 2025 4:07 PM [facility] 04-20-2025 Telephone encounter Note My calling back she will fax list from the SNF and will have to update med list with her admission notes to home health and fax that when she is able. [facility] 04-20-2025 Telephone encounter Note Called and left a message for My CAO with [employer] that if she has an updated medication list from when the Pt was in the [facility] if she could fax that to Dr Santiago at [phone]. Gabi Mcelroy RN [facility] 04-20-2025 Telephone encounter Note My CAO [...] that while the Pt was in the [facility]p she had a lizarraga catheter in, and [...] Please call and advise. Gabi Mcelroy, RN [facility] 04-17-2025 Telephone encounter Note We discussed about letter and she said she will message me when needed Regards, Dillan Santiago MD [facility] 04-17-2025 Miscellaneous Notes We discussed about letter and she said she will message me when needed Regards, Dillan Santiago MD Thomas spoke with patient daughter in regards to Home Health questions and also current housing AL options. Maribeth and Thomas discussed that [facility] looks to be an option for home healthcare. Thomas left message for [facility] referral line to call this Sw back to confirm if they will be serving patient home healthcare needs. Maribeth notes that [facility] will be providing home youth care specialist next week when patient stays at her apt. Maribeth notes that patient will then be coming to stay with her,until opening at [facility]. Maribeth notes that she is working on getting bedroom ready at there home for patient to come and stay with he. There is a wait list at [facility]. Thomas will let patient daughter know what she finds out from [facility]. Maribeth also mentioned a letter for her [...] there is a message from today from [facility] noting orders for SN,PT,OT. It looks like Dr. Santiago agreed to [facility] seeing patient. documented in this encounter [facility] 04-17-2025 Telephone encounter Note Sw spoke with patient daughter in regards to Home Health questions and also current housing AL options. Maribeth and Thomas discussed that [facility] looks to be an option for home healthcare. Sw left message for [facility] referral line to call this Sw back to confirm if they will be serving patient home healthcare needs. Maribeth notes that [facility] will be providing home youth care specialist next week when patient stays at her apt. Maribeth notes that patient will then be coming to stay with her,until opening at [facility]. Maribeth notes that she is working on getting bedroom ready at there home for patient to come and stay with he. There is a wait list at [facility]. Sw will let patient daughter know what she finds out from [facility]. Maribeth also mentioned a letter for her mom's current [place] apt, to see about being released from her housing there. Sw noted that she would send message to Dr. Santiago to see what she says about letter. [facility] 04-17-2025 Telephone encounter Note Sw tried call to patient daughter and vmail is full, unable to leave message. Sw will try call another time. [facility] 04-17-2025 Note HNO ID: [id number] Author: DILLAN SANTIAGO MD Service: ? Author [...] until 03/04, followed by a stay at [facility] beginning on 03/19. Michaela is scheduled to be discharged from [facility] on Sunday. Her daughter has arranged for [...] and balance issues. - Referral sent to [facility] for PT and OT. 2. 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 Healing is delayed, contributing to mobility issues. - Monitor healing progress through follow-up appointments. - Co (more content not included)... [facility] 04-17-2025 Telephone encounter Note This Sw received consult and will work on reaching out to patient daughter to discuss social service needs. This Sw also notes that there is a message from today from [employer] [facility] noting orders for SN,PT,OT. It looks like Dr. Santiago agreed to [employer] seeing patient. [facility] 04-17-2025 History of Presen t illness [...] until 03/04, followed by a stay at [facility] beginning on 03/19. Michaela is scheduled to be discharged from [facility] on Sunday. Her daughter has arranged for [...] and balance issues. - Referral sent to [facility] for PT and OT. 2. [...] to be stage 2 ulcer - Ordered halfway for wound care management. - Utilize hypochlorous [...] excuse any unintended typographical errors. Recording using [employer] software for draft documentation of the visit was discussed with the patient/authorized marketing sales representative; all questions welcomed and answered. Patient/authorized marketing sales representative agreed to proceed Dillan Santiago MD documented in this encounter [facility] 04-17-2025 Instructions Dillan Santiago MD - [...] is a positive sign for healing. - [facility] will be arranged to clean and care [...] you have experienced in the past. - [facility] will assist with catheter care, including monthly [...] These were helpful during your stay at [facility]. - Mental Health: - You are experiencing [...] are awaiting an updated medication list from [facility] to confirm all current prescriptions and dosages. - Living Arrangements: - Your daughter is exploring assisted living options for you, including a facility in [facility]. This will require private pay for two [...] - A referral has been sent to [facility] for halfway, PT, and OT. They will also assess [...] support your care needs. Next Steps: - [facility], PT, and OT will be arranged through [...] any other concerns. documented in this encounter [facility] 04-17-2025 Telephone encounter Note TC to nurse at [facility] to obtain current med list. Unable to reach. Left detailed message for nurse to [facility]. PCP office needs updated med list. Mike Guo MA [facility] 04-17-2025 Telephone encounter Note Wes with [employer] called and is notified of providers message. She voices understanding. Gabi Mcelroy RN [facility] 04-17-2025 Miscellaneous Notes Wes with [employer] called and is notified of providers message. She voices understanding. Gabi Mcelroy RN Will follow Dillan Patel MD Wes with [employer] called in and reports they received a referral for SN/PT/OT. She is asking if provider will fallow. Please call back. Gabi Mcelroy, RN documented in this encounter [facility] 04-17-2025 Telephone encounter Note Will follow Regards, Dillan Santiago MD [facility] 04-17-2025 Telephone encounter Note Wes with [employer] called in and reports they received a referral for SN/PT/OT. She is asking if provider will fallow. Please call back. Gabi Mcelroy RN [facility] 03-19-2025 Telephone encounter Note Thanks and noted Regards, Dillan Santiago MD [facility] 03-19-2025 Miscellaneous Notes Thanks and noted Regards, Dillan Santiago MD Canceled appointment for tomorrow per patients daughter request. Mckenzie Lombardo LPN March 19, 2025 4:00 PM Thomas spoke with patient daughter Maribeth. Maribeth notes that patient is currently at [facility] right now. Transitioned there today. Maribeth notes that she needs to cancel patient appt with Dr. Santiago tomorrow. Thomas notes that she will send message to Dr. Santiago regarding this need. Maribeth also noted that she is going to send My Chart message as well in regards to cancelling appt. Maribeth notes that the hospital had encouraged patient to go to [facility] for further care after being in [facility] TCU. Daughter is trying to get with admissions at [facility] in regards to them saying that she is going there for 30 days and being placed in LTC and not Rehab. Daughter also notes that she has an appt next week with [facility] for financial planning. Maribeth also noted that she would like patient to see Dr. Santiago if and when she leaves [facility]. While in [facility], patient will be followed by their provider. Thomas did encourage patient daughter to also reach out to [facility] for further support guidance regarding LTC planning. Sw will forward note to Dr. Santiago and her office in regards to appt cancellation need for tomorrow. documented in this encounter [facility] 03-19-2025 Telephone encounter Note Canceled appointment for tomorrow per patients daughter request. Mckenzie Lombardo LPN March 19, 2025 4:00 PM [facility] 03-19-2025 Telephone encounter Note Thomas spoke with patient daughter Maribeth. Maribeth notes that patient is currently at [facility] right now. Transitioned there today. Maribeth notes that she needs to cancel patient appt with Dr. Santiago tomorrow. Thomas notes that she will send message to Dr. Santiago regarding this need. Maribeth also noted that she is going to send My Chart message as well in regards to cancelling appt. Maribeth notes that the hospital Sw had encouraged patient to go to [facility] for further care after being in [facility] TCU. Daughter is trying to get with admissions at [facility] in regards to them saying that she is going there for 30 days and being placed in LTC and not Rehab. Daughter also notes that she has an appt next week with [facility] for financial planning. Maribeth also noted that she would like patient to see Dr. Santiago if and when she leaves [facility]. While in [facility], patient will be followed by their provider. Sw did encourage patient daughter to also reach out to [facility] and [facility] for further support guidance regarding LTC planning. will forward note to Dr. Santiago and her office in regards to appt cancellation need for tomorrow. [facility] 03-16-2025 Note [facility] Medical Records Department [address] [place] [address] Discharge Summary 03/16/252012 MR#: [id number] Acct: [id number] Name: MICHAELA BRANDT Rep #: [id number] : 1940 84 From: Garfield Yo MD PCP: Dr. Dillan Santiago MD Status:ADM IN Location: [place] [address] Providers Date of Admission: 03/04/25 Primary Care [...] - Clonazepam 0.5mg tid prn, stable chronic [place] use, GDR not recommended. * Dementia NOS - Donepezil 10mg daily. * Depression - Lexapro 20mg daily, stable chronic ocean transportation intermediary use, GDR not recommended. * Hypothyroidism - Levothyroxine 50mcg daily. * Insomnia - Trazodone 50mg qhs, stable chronic ocean transportation intermediary use, GDR not recommended. Medications at Discharge [...] Eliquis 5mg bid thru 06/08/2025. Discharge to [facility], intermediate, part B therapies. Physical Exam [...] No restrictions Di (more content not included)... [facility] 03-04-2025 Note [facility] Medical Records Department [address] [place] [address] History Physical Exam 03/04/25 1717 MR#: [id number] Acct: [id number] Name: MICHAELA BRANDT Rep #: [id number] : 1940 84 From: Garfield Yo MD PCP: Dr. Dillan Santiago MD Status:ADM IN Location: [id number] HPI - General General Date of Admission: 03/04/25 Date of Service: 03/04/25 Chief Complaint: Here for rehabilitation. HPI Narrative MICHAELA BRANDT, is a 84 Female who presents with followin03/01/2025 [facility] ED fall. Left knee injury, fell off bed, hurt left knee, unable to move left knee. History left knee surgery, moved to [place] recently. CT brain negative, CT left knee negative. X-ray showed left hip fracture. Left knee immobilizer applied. 03/01/2025 Admit [facility]. Tylenol, Oxycodone, Dilaudid, prepare for surgery for [...] rehabilitation, strengthening, prior to discharge home alone. [facility] Medical History (Updated 03/04/25 @ 17:22 by [...] Extremity normal capi (more content not included)... [facility] 03-04-2025 Consult note [facility] 03-04-2025 Discharge summary Note Date/Time March 04, 2025 12:22pm [facility] Medical Records Department [address] [place] [address] Transfer to [facility] MR#: [id number] Acct: [id number] Name: MICHAELA BRANDT Rep #:[id number] : 1940 84 From: Allison Tran MD PCP: Dr. Dillan Santiago MD Status:ADM I N Certification of patient admission REQUIRED AT TIME OF ADMISSION. I CERTIFY THAT POST-HOSPITAL ECF SERVICES ARE REQUIRED TO BE GIVEN ON AN IN-PATIENT BASIS BECAUSE OF THE ABOVE NAMED PATIENT'S NEED FOR RESIDENTIAL CARE ON A CONTINUING BASIS FOR THE [...] in before D/C Order can be placed): Senior Living Facility 03/04/25 1222 <Electronically signed by Allison Tran MD> Cosigner Signature (if applicable): CC: Dr. Dillan Santiago MD; Dr. Roro Long DO; Dr. Boston Rosas DO ~ [facility] Work Phone: 1(334) 317-343504-16-2025 Discharge summary [facility] Medical Records Department [address] [place] [address] Transfer to [facility] MR#: [id number] Acct: [id number] Name: MICHAELA BRANDT Rep #:[id number] : 1940 84 From: Allison Tran MD PCP: Dr. Dillan Santiago MD Status:ADM I N Certification of patient admission REQUIRED AT TIME OF ADMISSION. I CERTIFY THAT POST-HOSPITAL ECF SERVICES ARE REQUIRED TO BE GIVEN ON AN IN-PATIENT BASIS BECAUSE OF THE ABOVE NAMED PATIENT'S NEED FOR RESIDENTIAL CARE ON A CONTINUING BASIS FOR THE [...] in before D/C Order can be placed): Senior Living Facility 03/04/25 1222 Cosigner Signature (if applicable): CC: Dr. Dillan Santiago MD; Dr. Roro Long DO; Dr. Boston Rosas DO ~ [facility]04-16-2025 [facility] Medical Records Department [address] [place] [address] Discharge Summary 03/04/25 1222 MR#: [id number] Acct: [id number] Name: MICHAELA BRANDT Rep #: [id number] : 1940 84 From: Allison Tran MD PCP: Dr. Dillan Santiago MD Status:DIS IN Location: [facility] NG138-9 Providers Date of Admission: 03/01/25 Date of Discharge: 03/04/25 Primary Care Physician: Dr. 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/barge hand Routine Comment: Consult: Orthopedics Routine Consulting Provider: [...] for DVT prophylaxis. She was discharged to halfway facility on 03/04/2025. At the request of [...] S2 n (more content not included)...[facility] [id number] Progress note Author Josy Parks [facility] Note Date/Time March 03, 2025 5:1 6pm [facility] Medical Records Department [address] [place] [address] Progress Note - Orthopedic 03/03/25 1316 MR#: [id number] Acct: [id number] Name: MICHAELA BRANDT Rep #:[id number] : 1940 84 From: Josy HOUSE PCP: Dr. Dillan Santiago MD Status:ADM I N Location: [place] [address] Subjective Subjective Patient is lying comfortably in [...] 74.6 H, Lymph % (Auto) 12.6 L, [place] % (Auto) 9.6, Eos % (Auto) 1.9, [...] evidence of fracture or loosening. Reading Location: [id number] Physical Exam Narrative 1. MEJIA hose in [...] orthopedic with any concerns or questions 03/03/25 2800 <Electronically signed by Josy HOUSE> Cosigner Signature (if applicable): CC: ~ Signed [facility] Work Phone: 1(558) 281-235304-15-2025 Progress note [facility] Medical Records Department [address] [place] [address] Progress Note - Orthopedic 03/03/25 1316 MR#: [id number] Acct: [id number] Name: ARYAMICHAELA MARTINEZ Rep #:[id number] : 1940 84 From: Josy HOUSE PCP: Dr. Dillan Santiago MD Status:ADM I N Location: MS3 VA169-5 Subjective Subjective Patient is lying comfortably in [...] 74.6 H, Lymph % (Auto) 12.6 L, [place] % (Auto) 9.6, Eos % (Auto) 1.9, [...] evidence of fracture or loosening. Reading Location: [id number] Physical Exam Narrative 1. MEJIA hose in [...] Cosigner Signature (if applicable): CC: ~ Signed [facility]04-15-2025 Progress note Author [facility] Note Date/Time March 03, 2025 3:[address] [place] [address] Health System Medical Records Department [address] [place] [address] Progress Note 03/03/25 1459 MR#: [id number] Acct: [id number] Name: MICHAELA BRANDT Rep #:[id number] : 1940 84 From: Allison Tran MD PCP: Dr. Dillan Santiago MD Status:ADM I N Location: [place] [id number] Subjective Subjective Patient seen and examined. Her [...] 74.6 H, Lymph % (Auto) 12.6 L, [place] % (Auto) 9.6, Eos % (Auto) 1.9, [...] evidence of fracture or loosening. Reading Location: [id number] Physical Exam Const alert, oriented x3, no [...] precert. * Charges/Coding Visit Charges Inpatient E&M: 57869 Subs Hosp L2 03/03/25 1511 <Electronically signed by Allison Tran MD> Allison Tran MD Cosigner Signature (if applicable): CC: ~ Signed [facility] Work Phone: 1(909) 434-635004-15-2025 Progress note [facility] Medical Records Department [address] [place] [address] Progress Note 03/03/25 1459 MR#: [id number] Acct: [id number] Name: MICHAELA BRANDT Rep #:[id number] : 1940 84 From: Allison Tran MD PCP: Dr. Dillan Santiago MD Status:ADM I N Location: [place] [address] Subjective Subjective Patient seen and examined. Her [...] 74.6 H, Lymph % (Auto) 12.6 L, [place] % (Auto) 9.6, Eos % (Auto) 1.9, [...] evidence of fracture or loosening. Reading Location: [facility] Physical Exam Const alert, oriented x3, [...] precert. * Charges/Coding Visit Charges Inpatient E&M: 14090 Subs Hosp L2 03/03/25 1511 Allison Tran MD Cosigner Signature (if applicable): CC: ~ Signed [facility]04-15-2025 Consult note Author Jim Vidales [facility] Note Date/Time March 04, 2025 2:5 7pm [facility] Medical Records Department [address] [place] [address] Anesthesia Postop Eval II 03/03/25904 MR#: [id number] Acct: [id number] Name: MICHAELA BRANDT Rep #:[id number] : 1940 84 From: Jim Vidales MD PCP: Dr. 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 Anesthesia Postop Eval I: Fluid Summary Crystalloid volume administer 600 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 (ml) Colloids volume administered ( ml) Blood Product volume administered (ml) Total IV fluid infused 600 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 Anesthesia Postop Eval I: Summary Notes Anesthesia Complication No 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 Anesthesia Complication Comment: Post-operative progress note Anesthesia: Postop Eval II Evaluation Mental status: Awake and Calm Pain Level: 2 nausea: No Vomiting: No Complications Anesthesia Complication: No 03/03/25 0905 <Electronically signed by Jim herrera MD> Date _ Jim Vidales MD Cosigner Signature: Date CC: ~ Signed [facility] Work Phone: 1(261) 726-759304-14-2025 Progress note Author Allison [facility] Note Date/Time March 02, 2025 3:5 0pm [facility] Medical Records Department [address] [facility] [place] [address] Progress Note 03/02/25 1133 MR#: [id number] Acct: [id number] Name: MICHAELA BRANDT Rep #:[id number] : 1940 84 From: Allison Tran MD PCP: Dr. Dillan Santiago MD Status:ADM I N Location: [place] [address] Subjective Subjective Patient seen and examined. Her [...] 92.1 H, Lymph % (Auto) 3.3 L, Miffl[place] % (Auto) 3.8, Eos % (Auto) 0.0, [...] (Auto) 76.7 H, Lymph % (Auto) 11.6L, [place] % (Auto) 9.5, Eos % (Auto) 0.9, [...] fracture of the left femur. Reading Location: [facility] Knee X-Ray 03/01/25 11:41 IMPRESSION: Acute fracture of the left lateral femoral condyle. Reading Location: [facility] Brain CT 03/01/25 12:42 IMPRESSION: 1. No acute intracranial finding. 2. Findings of chronic microvascular ischemic changes and age-related changes. Reading Location: [facility] Lower Extremity CT 03/01/25 12:42 IMPRESSION: No acute osseous fracture. The previously visualized osseous fragment along the distal lateral left femoral condyle is secondary to diffuse bone lucency and probable nutrient channel. Reading Location: [facility] Chest X-Ray 03/01/25 13:59 IMPRESSION: Emphysema/fibrosis. No acute findings. Reading Location: [facility] Physical Exam Const alert, oriented x3, [...] intubation * Charges/Coding Visit Charges Inpatient E&M: 04721 Subs Hosp L2 03/02/25 1550 <Electronically signed by Allison Tran MD> Allison Tran MD Cosigner Signature (if applicable): CC: ~ Signed [facility] Work Phone: 1(862) 860-129504-14-2025 Progress note [facility] Medical Records Department [address] [place] [address] Progress Note 03/02/25 1133 MR#: [id number] Acct: [id number] Name: MICHAELA BRANDT Rep #:[id number] : 1940 84 From: Allison Tran MD PCP: Dr. Dillan Santiago MD Status:ADM I N Location: [place] [address]-1 Subjective Subjective Patient seen and examined. Her [...] 92.1 H, Lymph % (Auto) 3.3 L, Miffl[place] % (Auto) 3.8, Eos % (Auto) 0.0, [...] (Auto) 76.7 H, Lymph % (Auto) 11.6L, [place]if[place] % (Auto) 9.5, Eos % (Auto) 0.9, [...] fracture of the left femur. Reading Location: [facility] Knee X-Ray 03/01/25 11:41 IMPRESSION: Acute fracture of the left lateral femoral condyle. Reading Location: [facility] Brain CT 03/01/25 12:42 IMPRESSION: 1. No acute intracranial finding. 2. Findings of chronic microvascular ischemic changes and age-related changes. Reading Location: [facility] Lower Extremity CT 03/01/25 12:42 IMPRESSION: No acute osseous fracture. The previously visualized osseous fragment along the distal lateral leftfemoral condyle is secondary to diffuse bone lucency and probable nutrient channel. Reading Location: [facility] Chest X-Ray 03/01/25 13:59 IMPRESSION: Emphysema/fibrosis. No acute findings. Reading Location: [facility] Physical Exam Const alert, oriented x3, [...] intubation * Charges/Coding Visit Charges Inpatient E&M: 77313 Subs Hosp L2 03/02/25 4989 Allison Tran MD Cosigner Signature (if applicable): CC: ~ Signed [facility]04-14-2025 Radiology Diagnostic study note [facility] Imaging Services [address] [place] [address] Hip Min 2 Views (Portable) MR#: [id number] Acct: [id number] Name: MICHAELA BRANDT Rep #: [id number] : 1940 F 84 From: Jose Gayle DO PCP: Dr. Dillan Santiago MD Status: ADM I N Study:Hip Min 2 Views (Portable) Date of Exam : 03/02/25 Exam# [id number] Ordering Dr: James Overton MD PROCEDURE: HIP [...] evidence of fracture or loosening. Reading Location: [id number] CC: Dr. Dillan Santiago MD; Dr. Elijah Overton MD ~ Bulk Mail Clerk: Signed [facility]04-14-2025 Consult note Author Joanna Delgado [facility] Note Date/Time March 02, 2025 1:0 0pm [facility] Medical Records Department [address] [place] [address] Anesthesia Postop Eval I 03/02/25 1259 MR#: [id number] Acct: [id number] Name: MICHAELA BRANDT Rep #:[id number] : 1940 84 From: Joanna Delgado CRNA PCP: Dr. Dillan Santiago MD Status:ADM I N Y Race: C Location: [facility]322 -1 Anesthesia: Postop Eval I Current Vital [...] 03/02/25 1300 <Electronically signed by Joanna chowdary HORIZONTAL DRILL OPERATOR> Date _ Joanna Delgado HORIZONTAL DRILL OPERATOR Cosigner Signature: Date CC: ~ Signed [facility] Work Phone: 1(305) 342-245704-14-2025 Consult note Author Sae nhi [facility] Note Date/Time March 02, 2025 11: 09am [facility] Medical Records Department [address] [place] [address] Pre-Anesthesia Evaluation 03/02/25 1109 MR#: [id number] Acct: [id number] Name: MICHAELA BRANDT Rep #:[id number] : 1940 84 From: Sae Sesay MD PCP: Dr. Dillan Santiago MD Status:ADM I N Y Race: C Location: [place] [id number] -1 ASA Classification* ASA Classification ASA Classification: [...] left hip Anesthesia History Anesthesia History - technician trainee: Anesthesia History - technician trainee Hx Hospitalization Any Problems With Anesthesia No [...] take am of surgery PONV PONV - technician trainee: PONV - technician trainee Female HX of Motion Sickness HX of N/V After Surgery Non-Smoker Duration of Surgery greater than 60 minutes Number of Risk Factors PONV Score Height & Weight Height & Weight: Anesthesia: Height & Weight Height 5 ft 03/01/25 15:09 Weight: 57.7 kg 03/02/25 06:00 Body Mass Index (BMI) 25.0 03/02/25 06:00 Respiratory Assessment Respiratory Assessment - technician trainee: Respiratory Tract Infection Hx - technician trainee Hx Respiratory Tract Infection No 03/01/25 22:27 STOP Sleep Apnea STOP Sleep Apnea - technician trainee: STOP Sleep Apnea - technician trainee Hx Hypertension No 03/02/25 09:43 Hx Sleep [...] Tobacco Use History Tobacco Use History - technician trainee: Tobacco Use History - technician trainee Tobacco Use Smoking Status Never smoker 03/01/25 16:34 Hx Tobacco Use No 03/01/25 15:09 Years Smoking Packs Smoked per Day Smoking Cessation Date was within the last 15 years Hx Smoking Cessation Date Hx Smoking Cessation Counseling Hematologic Medial History Hematologic Hx - technician trainee: 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 Hx of Blood Transfusion No 03/01/25 15:09 [...] confused, unrespo /Reproduction History /Reproductive History - technician trainee: /Reproductive Hx- technician trainee Hx Now No 03/01/25 22:27 Gestational Age [...] 03/02/25 10:49 IV 03/02/25 18:19 0 mls/hr .[id number] GRAY Infusion Sodium Chloride 100 mls @ [...] Powder 15gm Bottle TOPICAL Not Given BID [facility] Protocol Ondansetron HCl 4 mg 03/01/25 15:09 03/02/25 07:46 Ondansetron 4 Mg/2 Ml Vial IV 4 mg Q8H PRN PRN Administration NAUSEA/VOMITING Oxycodone HCl 5 mg 03/01/25 15:09 03/01/25 22:25 Oxycodone 5 Mg Tablet PO 5 mg Q4H PRN PRN Administration Pain Score 4-10 Senna/Docusate Sodium 2 tablet 03/01/25 22:00 03/01/25 21:11 Senna/Docusate Sodium 1 Tablet PO 2 tablet BID [facility] Administration Sodium Chloride 10 - 40 ml 03/01/25 15:09 03/02/25 07:46 0.9% Saline Lock 10 Ml Syringe IV 10 ml UD PRN Administration SALINE FLUSH Trazodone HCl 50 mg 03/01/25 22:00 03/01/25 21:12 Trazodone 50 Mg Tablet PO Not Given QHS [facility] PFSH Medical History Hypothyroidism Anxiety Dementia Self-catheterizes [...] MD Cosigner Signature: Date CC: ~ Signed [facility] Work Phone: 1(166) 560-471704-14-2025 Consult note Author Elijha Overton [facility] Note Date/Time March 02, 2025 11: 05am [facility] Medical Records Department [address] [place] [address] Consultation - Orthopedics 03/02/25 1100 MR#: [id number] Acct: [id number] Name: MICHAELA BRANDT Rep #:[id number] : 1940 84 From: Elijah Laws PCP: Dr. Dillan Santiago MD Status:ADM I N Location: [place] IO732-0 HPI Consult Data Date of Consult: 03/02/25 HPI Narrative Reason for Consultation: Left hip pain HPI Narrative: MICHAELA BRANDT, is a 84 F who presents with left hip pain. Patient's daughter isat bedside and is her medical power of seasonal package handler. Patient does have memory issues and is [...] and was the primary provider of information. [facility] Medical History Hypothyroidism Anxiety Dementia Self-catheterizes urinary [...] 92.1 H, Lymph % (Auto) 3.3 L, [place] % (Auto) 3.8, Eos % (Auto) 0.0, [...] (Auto) 76.7 H, Lymph % (Auto) 11.6L, [place] % (Auto) 9.5, Eos % (Auto) 0.9, [...] fracture of the left femur. Reading Location: [facility] Knee X-Ray 03/01/25 11:41 IMPRESSION: Acute fracture of the left lateral femoral condyle. Reading Location: [facility] Brain CT 03/01/25 12:42 IMPRESSION: 1. No acute intracranial finding. 2. Findings of chronic microvascular ischemic changes and age-related changes. Reading Location: [facility] Lower Extremity CT 03/01/25 12:42 IMPRESSION: No acute osseous fracture. The previously visualized osseous fragment along the distal lateral left femoral condyle is secondary to diffuse bone lucency and probable nutrient channel. Reading Location: [facility] Chest X-Ray 03/01/25 13:59 IMPRESSION: Emphysema/fibrosis. No acute findings. Reading Location: [facility] Assessment & Plan Assessment/Plan (1) Closed intertrochanteric fracture of left hip: PLAN: Natural history of the disease process was discussed with patient and her family member at bedside. Potential treatment options were discussed and cephalomedullary nail was recommended as appropriate treatment plan. Risk and benefits of the procedure were discussed the patient and her medical power of seasonal package handler occluding but not limited to blood loss, [...] applicable): CC: Dr. Dillan Santiago MD~ Signed [facility] Work Phone: 1(778) 243-900704-14-2025 Consult note [facility] Medical Records Department [address] [place] [address] Anesthesia Postop Eval I 03/02/25 1259 MR#: [id number] Acct: [id number] Name: MICHAELA BRANDT Rep #:[id number] : 1940 84 From: Joanna Delgado CRNA PCP: Dr. Dillan Santiago MD Status:ADM I N Y Race: C Location: [place] [address] Anesthesia: Postop Eval I Current Vital Signs [...] Eval 1 completed: Yes 03/02/[address] HORIZONTAL DRILL OPERATOR> Date _ Joanna DeForeest HORIZONTAL DRILL OPERATOR Cosigner Signature: Date CC: ~ Signed [facility]04-14-2025 Procedure note [facility] Medical Records Department [address] [place] [address] Operative Report 03/02/25 1100 MR#: [id number] Acct: [id number] Name: MICHAELA BRANDT Rep #:[id number] : 1940 84 From: Elijah Laws PCP: Dr. Dillan Santiago MD Status:ADM I N Location: [place] [address] Operative Report (Standard) Operative Information Date of Procedure: 03/02/25 Pre-Operative Diagnosis: Left intertrochanteric hip fracture Post-Operative Diagnosis: Left intertrochanteric hip fracture Surgery/Procedure Performed: Left hip cephalomedullary nail judicial law clerk: No Type of Anesthesia: General RN Documented Start/Stop Times: Operation Date: 03/02/25 13:15 Case Time Into Pre-Op 03/02/25 10:50 Anesthesia Start 03/02/25 11:50 Into Room 03/02/25 11:50 Procedure Start 03/02/25 12:16 Procedure End 03/02/25 12:41 Procedure Start Time: 12:16 Procedure Stop Time: 12:41 Select all DRAINS/GRAFTS/IMPLANTS that apply: Implanted device Implanted device details: [place] gamma nail 3, 11 mm x 180 [...] verify theplacement of the nail and a [place] short gamma 3 by 11 mm 125 degree hip nail was selected. The 12.5 mm reamer was then passed. The nail was then attached to the mail inserter and inserted into the intramedullary canal. The [...] Hose VTE Pharm Prophylaxis ordered?: Yes 03/02/25 2595 Cosigner Signature (if applicable): CC: Dr. Dillan Santiago MD; Dr. Roro Long DO; Dr. Boston Rosas DO; Dr. Elijah Overton MD~ Signed [facility]04-14-2025 Radiology Diagnostic study note [facility] Imaging Services [address], [place] [address] Hip Min 2 Views (Portable) MR#: [id number] Acct: [id number] Name: MICHAELA BRANDT Rep #: [id number] : 1940 F 84 From: Tanner Beth MD PCP: Dr. Dillan Santiago MD Status: ADM I N Study:Hip Min 2 Views (Portable) Date of Exam : 03/02/25 Exam# [id number] Ordering Dr: James Overton MD PROCEDURE: Intraoperative [...] left intertrochanteric fracture. Reading Location: [place] [address] CC: Dr. Dillan Santiago MD; Dr. Elijah Overton MD ~ Bulk Mail Clerk: Signed [facility]04-14-2025 Consult note [facility] Medical Records Department [address] [place] [address] Pre-Anesthesia Evaluation 03/02/25 1109 MR#: [id number] Acct: [id number] Name: MICHAELA BRANDT Rep #:[id number] : 1940 84 From: Sae Sesay MD PCP: Dr. Dillan Santiago MD Status:ADM I N Y Race: C Location: [place] [address] ASA Classification* ASA Classification ASA Classification: 2 [...] left hip Anesthesia History Anesthesia History - technician trainee: Anesthesia History - technician trainee Hx Hospitalization Any Problems With Anesthesia No [...] take am of surgery PONV PONV - technician trainee: PONV - technician trainee Female HX of Motion Sickness HX of N/V After Surgery Non-Smoker Duration of Surgery greater than 60 minutes Number of Risk Factors PONV Score Height & Weight Height & Weight: Anesthesia: Height & Weight Height 5 ft 03/01/25 15:09 Weight: 57.7 kg 03/02/25 06:00 Body Mass Index (BMI) 25.0 03/02/25 06:00 Respiratory Assessment Respiratory Assessment - technician trainee: Respiratory Tract Infection Hx - technician trainee Hx Respiratory Tract Infection No 03/01/25 22:27 STOP Sleep Apnea STOP Sleep Apnea - technician trainee: STOP Sleep Apnea - technician trainee Hx Hypertension No 03/02/25 09:43 Hx Sleep [...] Tobacco Use History Tobacco Use History - technician trainee: Tobacco Use History - technician trainee Tobacco Use Smoking Status Never smoker 03/01/25 16:34 Hx Tobacco Use No 03/01/25 15:09 Years Smoking Packs Smoked per Day Smoking Cessation Date was within the last 15 years Hx Smoking Cessation Date Hx Smoking Cessation Counseling Hematologic Medial History Hematologic Hx - technician trainee: 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 Hx of Blood Transfusion No 03/01/25 15:09 [...] confused, unrespo /Reproduction History /Reproductive History - technician trainee: /Reproductive Hx- technician trainee Hx Now No 03/01/25 22:27 Gestational Age [...] Escitalopram Oxalate 20 Mg Tablet PO DAILY GARY Hydralazine HCl 10 mg 03/01/25 15:09 Hydralazine 20 Mg/Ml Vial IV Q6H PRN PRN SBP> 160 Protocol Lactated Ringer's 1,000 mls @ 75 mls/hr 03/02/25 05:00 03/02/25 10:49 IV 03/02/25 18:19 0 mls/hr .[id number] GRAY Infusion Sodium Chloride 100 mls @ 15 mls/hr 03/01/25 15:09 IV .Q6H40M PRN Saline Flush Sodium Chloride 1,000 mls @ 15 mls/hr 03/02/25 10:55 IV .Q48H [facility] Levothyroxine Sodium 50 mcg 03/02/25 06:00 03/02/25 07:48 Levothyroxine 50 Mcg Tablet PO 50 mcg DAILY@0600 [facility] Administration Melatonin 3 mg 03/01/25 15:09 Melatonin 3 Mg Tablet PO QHS PRN PRN INSOMNIA Morphine Sulfate 2 - 4 mg 03/01/25 15:09 03/02/25 07:46 Morphine 2 Mg/Ml Syringe IV 2 mg Q3H PRN PRN Administration Pain Score 6-10 Nystatin 1 applic 03/01/25 22:00 03/02/25 10:29 Nystatin Powder 15gm Bottle TOPICAL Not Given BID [facility] Protocol Ondansetron HCl 4 mg 03/01/25 15:09 03/02/25 07:46 Ondansetron 4 Mg/2 Ml Vial IV 4 mg Q8H PRN PRN Administration NAUSEA/VOMITING Oxycodone HCl 5 mg 03/01/25 15:09 03/01/25 22:25 Oxycodone 5 Mg Tablet PO 5 mg Q4H PRN PRN Administration Pain Score 4-10 Senna/Docusate Sodium 2 tablet 03/01/25 22:00 03/01/25 21:11 Senna/Docusate Sodium 1 Tablet PO 2 tablet BID [facility] Administration Sodium Chloride 10 - 40 ml 03/01/25 15:09 03/02/25 07:46 0.9% Saline Lock 10 Ml Syringe IV 10 ml UD PRN Administration SALINE FLUSH Trazodone HCl 50 mg 03/01/25 22:00 03/01/25 21:12 Trazodone 50 Mg Tablet PO Not Given QHS [facility] PFSH Medical History Hypothyroidism Anxiety Dementia Self-catheterizes [...] MD Cosigner Signature: Date CC: ~ Signed [facility]04-14-2025 Consult note [facility] Medical Records Department [address] [place] [address] Consultation - Orthopedics 03/02/25 1100 MR#: [id number] Acct: [id number] Name: MICHAELA BRANDT Rep #:[id number] : 1940 84 From: Elijah Laws PCP: Dr. Dillan Santiago MD Status:ADM I N Location: [place] [address] HPI Consult Data Date of Consult: 03/02/25 HPI Narrative Reason for Consultation: Left hip pain HPI Narrative: MICHAELA BRANDT, is a 84 F who presents with left hip pain. Patient's daughter isat bedside and is her medical power of seasonal package handler. Patient does have memory issues and is [...] and was the primary provider of information. [facility] Medical History Hypothyroidism Anxiety Dementia Self-catheterizes urinary [...] 92.1 H, Lymph % (Auto) 3.3 L, [place] % (Auto) 3.8, Eos % (Auto) 0.0, [...] (Auto) 76.7 H, Lymph % (Auto) 11.6L, [place] % (Auto) 9.5, Eos % (Auto) 0.9, [...] fracture of the left femur. Reading Location: [facility] Knee X-Ray 03/01/25 11:41 IMPRESSION: Acute fracture of the left lateral femoral condyle. Reading Location: [facility] Brain CT 03/01/25 12:42 IMPRESSION: 1. No acute intracranial finding. 2. Findings of chronic microvascular ischemic changes and age-related changes. Reading Location: [facility] Lower Extremity CT 03/01/25 12:42 IMPRESSION: No acute osseous fracture. The previously visualized osseous fragment along the distal lateral leftfemoral condyle is secondary to diffuse bone lucency and probable nutrient channel. Reading Location: [facility] Chest X-Ray 03/01/25 13:59 IMPRESSION: Emphysema/fibrosis. No acute findings. Reading Location: [facility] Assessment & Plan Assessment/Plan (1) Closed intertrochanteric fracture of left hip: PLAN: Natural history of the disease process was discussed with patient and her family member at bedside. Potential treatment options were discussed and cephalomedullary nail was recommended as appropriate treatment plan. Risk and benefits of the procedure were discussed the patient and her medicalpower of seasonal package handler occluding but not limited to blood loss, [...] applicable): CC: Dr. Dillan Santiago MD~ Signed [facility]04-14-2025 Discharge summary Author Guerrero [employer] [facility] Note Date/Time March 01, 2025 10: 59pm [facility] Medical Records Department [address] [place] [address] Emergency Department Summary 03/01/25 MR#: [id number] Acct: [id number] Name: MICHAELA BRANDT Rep #:[id number] : 1940 84 From: Guerrero Sommer PCP: Dr. Dillan Santiago MD Status:ADM I N Location: [place] [address] HPI HPI - Fall History of Present [...] not. That was apparently in 2014 in [facility]. Patient reportedly just moved to the area. She denies any other injuries. She states that she cannot really move the knee. Patient is very tearful upset about bothering her children and over her late . There is a report of the degree of dementia that is reported to me. [facility] Medical History (Updated 03/01/25 @ 13:47 by [...] 92.1 H Lymph % (Auto) 3.3 L [place] % (Auto) 3.8 Eos % (Auto) 0.0 [...] fracture of the left femur. Reading Location: [facility] Knee X-Ray 03/01/25 11:41 IMPRESSION: Acute fracture of the left lateral femoral condyle. Reading Location: [facility] Brain CT 03/01/25 12:42 IMPRESSION: 1. No acute intracranial finding. 2. Findings of chronic microvascular ischemic changes and age-related changes. Reading Location: [facility] Lower Extremity CT 03/01/25 12:42 IMPRESSION: No acute osseous fracture. The previously visualized osseous fragment along the distal lateral left femoral condyle is secondary to diffuse bone lucency and probable nutrient channel. Reading Location: [facility] EKG Initial EKG: Attestation: I personally reviewed and interpreted this EKG as follows: Comments: Sinus rhythm ventricular rate 65 bpm Management Discussion w/another healthcare provider: Hospitalist, Rock Loader (Dr Rosas) and adult day care worker/Case management Discharge Plan Dx/Rx/DC Orders Clinical Impression: Fall, Closed intertrochanteric fracture of left hip, Acute pain of left knee Disposition Disposition: Acute Care Hospital [facility] What to do if you have Problems For any increased pain, shortness of breath, bleeding, nausea or vomiting, chestpain, or any unexpected problems, contact your Primary Care Provider. Call [facility] ([phone]) or report to the closest Emergency Room. Call 911 if necessary. 03/01/25 6094 <Electronically signed by Guerrero Valerio DO> Cosigner Signature (if applicable): CC: Dr. Dillan Santiago MD ~ Signed [facility] Work Phone: 1(966) 801-761304-13-2025 Discharge summary [facility] Medical Records Department [address] [place] [address] Emergency Department Summary 03/01/25 MR#: [id number] Acct: [id number] Name: MICHAELA BRANDT Rep #:[id number] : 1940 84 From: Guerrero Sommer PCP: Dr. Dillan Santiago MD Status:ADM I N Location: [place] [id number] HPI HPI - Fall History of Present [...] not. That was apparently in 2014 in [facility]. Patient reportedly just moved to the area. She denies any other injuries. She states that she cannot really move the knee. Patient is very tearful upset about bothering her children and over her late . There is a report of the degree of dementia that is reported to me. [facility] Medical History (Updated 03/01/25 @ 13:47 by [...] 92.1 H Lymph % (Auto) 3.3 L [place] % (Auto) 3.8 Eos % (Auto) 0.0 [...] fracture of the left femur. Reading Location: [facility] Knee X-Ray 03/01/25 11:41 IMPRESSION: Acute fracture of the left lateral femoral condyle. Reading Location: [facility] Brain CT 03/01/25 12:42 IMPRESSION: 1. No acute intracranial finding. 2. Findings of chronic microvascular ischemic changes and age-related changes. Reading Location: [facility] Lower Extremity CT 03/01/25 12:42 IMPRESSION: No acute osseous fracture. The previously visualized osseous fragment along the distal lateral leftfemoral condyle is secondary to diffuse bone lucency and probable nutrient channel. Reading Location: [facility] EKG Initial EKG: Attestation: I personally reviewed and interpreted this EKG as follows: Comments: Sinus rhythm ventricular rate 65 bpm Management Discussion w/another healthcare provider: Hospitalist, Rock Loader (Dr Rosas) and adult day care worker/Case management Discharge Plan Dx/Rx/DC Orders Clinical Impression: Fall, Closed intertrochanteric fracture of left hip, Acute pain of left knee Disposition Disposition: Acute Care Hospital [facility] What to do if you have Problems For any increased pain, shortness of breath, bleeding, nausea or vomiting, chestpain, or any unexpected problems, contact your Primary Care Provider. Call [facility] ([phone]) or report tothe closest Emergency Room. Call 911 if necessary. 03/01/25 9960 Cosigner Signature (if applicable): CC: Dr. Dillan Santiago MD ~ Signed [facility]04-13-2025 History and physical note Author Roro Long [facility] Note Date/Time March 01, 2025 4:3 7pm [facility] Medical Records Department [address] [place] [address] H&P Exam - Hospitalist 03/01/25 1345 MR#: [id number] Acct: [id number] Name: MICHAELA BRANDT Rep #:[id number] : 1940 84 From: Roro Long DO PCP: Dr. Dillan Santiago MD Status:ADM I N Location: [facility] [place] BR003-1 HPI - General General Date of Admission: 03/01/25 Date of Service: 03/01/25 Chief Complaint: L hip pain after mechanical fall HPI Narrative MICHAELA BRANDT, is a 84 F who presented to the emergency department at [facility] on 03/01/2025 with a chief complaint [...] admitted with an expected 2 midnight stay. [facility] Medical History Hypothyroidism Anxiety Dementia Self-catheterizes urinary [...] 92.1 H, Lymph % (Auto) 3.3 L, [place] % (Auto) 3.8, Eos % (Auto) 0.0, [...] fracture of the left femur. Reading Location: [facility] Knee X-Ray 03/01/25 11:41 IMPRESSION: Acute fracture of the left lateral femoral condyle. Reading Location: [facility] Brain CT 03/01/25 12:42 IMPRESSION: 1. No acute intracranial finding. 2. Findings of chronic microvascular ischemic changes and age-related changes. Reading Location: [facility] Lower Extremity CT 03/01/25 12:42 IMPRESSION: No acute osseous fracture. The previously visualized osseous fragment along the distal lateral left femoral condyle is secondary to diffuse bone lucency and probable nutrient channel. Reading Location: [facility] Assessment & Plan Assessment/Plan (1) Closed [...] code temporarily. Charges/Coding Visit Charges Inpatient E&M: 92195 Init Hosp L2 03/01/25 1637 <Electronically signed by Roro Long DO> Cosigner Signature (if applicable): CC: Dr. Dillan Santiago MD; Dr. Roro Long DO~ Signed [facility] Work Phone: 1(257) 713-873004-13-2025 History and physical note [facility] Medical Records Department [address] [place] [address] H&P Exam - Hospitalist 03/01/25 1345 MR#: [id number] Acct: [id number] Name: MICHAELA BRANDT Rep #:[id number] : 1940 84 From: Roro Long DO PCP: Dr. Dillan Santiago MD Status:ADM I N [facility] [place] [facility] - General General Date of Admission: 03/01/25 Date of Service: 03/01/25 Chief Complaint: L hip pain after mechanical fall HPI Narrative MICHAELA BRANDT, is a 84 F who presented to the emergency department at [facility] on03/01/2025 with a chief complaint of [...] admitted with an expected 2 midnight stay. [facility] Medical History Hypothyroidism Anxiety Dementia Self-catheterizes urinary [...] 92.1 H, Lymph % (Auto) 3.3 L, [place] % (Auto) 3.8, Eos % (Auto) 0.0, [...] fracture of the left femur. Reading Location: [facility] Knee X-Ray 03/01/25 11:41 IMPRESSION: Acute fracture of the left lateral femoral condyle. Reading Location: [facility] Brain CT 03/01/25 12:42 IMPRESSION: 1. No acute intracranial finding. 2. Findings of chronic microvascular ischemic changes and age-related changes. Reading Location: [facility] Lower Extremity CT 03/01/25 12:42 IMPRESSION: No acute osseous fracture. The previously visualized osseous fragment along the distal lateral leftfemoral condyle is secondary to diffuse bone lucency and probable nutrient channel. Reading Location: [facility] Assessment & Plan Assessment/Plan (1) Closed [...] code temporarily. Charges/Coding Visit Charges Inpatient E&M: 33844 Init Hosp L2 03/01/25 1636 Cosigner Signature (if applicable): CC: Dr. Dillan Santiago MD; Dr. Roro Long, DO~ Signed [facility]04-13-2025 Evaluation note* Diagnosis Onset Date Resolution Status Admit Date Acute pain of left knee acute A pril 2024 1:47pm Closed intertrochanteric fra cture of left hip acute March 01, 2025 1:47pm Fall acute March 01 1:47pm [facility] Work Phone: 1(105) 597-529104-13-2025 Evaluation note* Diagnosis Onset Date Resolution Status [...] 2025 3:04pm Fall inactive March 04 3:04pm [facility] Work Phone: 1(909) 324-788804-13-2025 Radiology Diagnostic study note [facility] Imaging Services [address] [place] [address] Chest 1 View (Portable) MR#: [id number] Acct: [id number] Name: MICHAELA BRANDT Rep #: [id number] : 1940 F 84 From: Jo Rabago MD PCP: Dr. Dillan Santiago MD Status: ADM I N Study:Chest 1 View (Portable) Date of Exam: 03/01/25 Exam# [id number] Ordering Dr: Cassy Long DO PROCEDURE: CHEST [...] IMPRESSION: Emphysema/fibrosis. No acute findings. Reading Location: [facility] CC: Dr. Dillan Santiago MD; Dr. Roro Long DO ~ Bulk Mail Clerk: Signed [facility]04-13-2025 Radiology Diagnostic study note [facility] Imaging Services [address] [place] [address] Knee 1 or 2 Views MR#: [id number] Acct: [id number] Name: MICHAELA BRANDT Rep #: [id number] : 1940 F 84 From: Jo Rabago MD PCP: Dr. Dillan Santiago MD Status: REG E R Study:Knee 1 or 2 Views Date of Exam: Exam# [id number] Ordering Dr: Veto Valerio DO ADDENDUM by Dr. Janet Rabago MD on 03/01/25 at 1310 No acute osseous fracture seen on same day CT of the left knee. The previously visualized osseous fragment along the distal lateral left femoral condyle is secondary to diffuse bone lucency and probable nutrient channel. Reading Location: [facility] 03/01/25 1311 Date cc: Dr. Dillan [...] the left lateral femoral condyle. Reading Location: [facility] CC: Dr. Dillan Santiago MD; Dr. Guerrero Valerio DO ~ Bulk Mail Clerk: Signed [facility]04-13-2025 Radiology Diagnostic study note [facility] Imaging Services [address] [place], [place] [id number] Extremity Lower without Contra MR#: [id number] Acct: [id number] Name: MICHAELA BRANDT Rep #: [id number] : 1940 F 84 From: Jo Rabago MD PCP: Dr. Dillan Santiago MD Status: REG E R Study:Extremity Lower without Contra Date of Exam: 03/01/25 Exam# [id number] Ordering Dr: Veto Valerio DO PROCEDURE: EXTREMITY [...] lucency and probable nutrient channel. Reading Location: [facility] CC: Dr. Dillan Santiago MD; Dr. Guerrero Valerio DO ~ Bulk Mail Clerk: Signed [facility]04-13-2025 Radiology Diagnostic study note [facility] Imaging Services [address] [place], [place] [id number] Brain/Head without Contrast MR#: [id number] Acct: [id number] Name: MICHAELA BRANDT Rep #: [id number] : 1940 F 84 From: Jo Rabago MD PCP: Dr. Dillan Santiago MD Status: REG E R Study:Brain/Head without Contrast Date of Exa m: 03/01/25 Exam# [id number] Ordering Dr: Veto Valerio DO EXAM: BRAIN/HEAD [...] ischemic changes and age-related changes. Reading Location: [id number] CC: Dr. Dillan Santiago MD; Dr. Guerrero Valerio DO ~ Bulk Mail Clerk: Signed [facility]04-13-2025 Radiology Diagnostic study note [facility] Imaging Services [address] [place] [id number] HIP, UNI W/ Pelvis 2-3 Views MR#: [id number] Acct: [id number] Name: MICHAELA BRANDT Rep #: [id number] : 1940 F 84 From: Jo Rabago MD PCP: Dr. Dillan Santiago MD Status: REG E R Study:HIP, UNI W/ Pelvis 2-3 Views Date of Ex am: 03/01/25 Exam# [id number] Ordering Dr: Veto Valerio DO PROCEDURE: HIP, [...] fracture of the left femur. Reading Location: [facility] CC: Dr. Dillan Santiago MD; Dr. Guerrero Valerio DO ~ Bulk Mail Clerk: Signed [facility]04-11-2025 Telephone encounter Note* Telephone Encounter - Kentrell Montgomery MSW - 02/27/2025 2:48 PM EDT Thomas spoke with patient daughter Maribeth. Maribeth noted that her mother is currently living on [address] St[place] is concerned about mother living [...] discussed different local memory care options ie. [place], [facility], [facility], [facility]. Maribeth notes that her mom was not interested in any place that looks like a usp. Discussed the different options above and layout and levels of care they offer. Maribeth notes that she is going to [facility] assistance as a shelter advisor looking at level of care memory care options for patient. Maribeth has this direct number for further assistance. [facility]04-11-2025 Miscellaneous Notes* Telephone Encounter - Kentrell Montgomery MSW - 02/27/2025 2:48 PM EDT Thomas spoke with patient daughter Maribeth. Maribeth noted that her mother is currently living on [address] Stahl is concerned about mother living [...] discussed different local memory care options ie. [place], [facility], [facility], [facility]. Maribeth notes that her mom was not interested in any place that looks like a usp. Discussed the different options above and layout and levels of care they offer. Maribeth notes that she is going to give Yuko a call from [facility] to see about her assistance as a shelter advisor looking at level of care memory care options for patient. Maribeth has this direct number for further assistance. * Telephone Encounter - Kentrell Montgomery MSW - 02/27/2025 2:26 PM EDT Thomas left message for patient requesting call back to discuss patient home care resource needs. documented in this encounterWhite Hospital04-11-2025 Telephone encounter Note * Telephone Encounter - Kentrell Montgomery MSW - 02/27/2025 2:26 PM EDT Thomas left message for patient requesting call back to discuss patient home care resource needs. [facility]04-09-2025 Telephone encounter Note* Telephone Encounter - Mariposa Salinas APRN.CNP - 02/25/2025 8:56 AM EDT PDMP website checked and validated. All prescriptions have been APPROPRIATELY filled. No suspiciousactivity was identified. 02/25/2025 by Mariposa Salinas APRN.CNP [facility]04-09-2025 Miscellaneous Notes* Telephone Encounter - Mariposa [...] you. Radha Haro LPN. documented in this encounterWhite Hospital04-09-2025 Telephone encounter Note * Telephone Encounter [...] Please advise. Thank you. Radha Haro LPN. [facility]04-06-2025 Telephone encounter Note* Telephone Encounter - Sara Adams OCCA - 02/22/2025 9:08 AM EDT TC to patients daughter and medical JANETHMichaela Ham, who verbalized understanding of providers message below. KIRIT Mendez [facility]04-06-2025 Miscellaneous Notes* Telephone Encounter - Sara [...] to see primary care documented in this encounterWhite Hospital04-06-2025 Telephone encounter Note * Telephone Encounter - Walt Robles APRN.CNP - 02/22/2025 8:31 AM EDT Patient is on the correct antibiotic. Symptoms should be improving. If symptoms are not improving patient needs to see primary care [facility]04-03-2025 Telephone encounter Note* Telephone Encounter - Colten Greer MA - 02/19/2025 3:19 PM EDT Spoke with patient's daughter. Daughter will bring patient in for urine. Colten Greer MA [facility]04-03-2025 Miscellaneous Notes* Telephone Encounter - Colten Greer MA - 02/19/2025 3:19 PM EDT Spoke with patient's daughter. Daughter will bring patient in for urine. Colten Greer MA * Telephone Encounter - Walt Robles APRN.CNP - 02/19/2025 3:03 PM EDT Please call patient and have her come back in and give a urine culture. documented in this encounterWhite Hospital04-03-2025 Telephone encounter Note * Telephone Encounter - Walt Robles APRN.CNP - 02/19/2025 3:03 PM EDT Please call patient and have her come back in and give a urine culture. [facility]04-03-2025 NoteHNO ID: [id number] Author: WALT ROBLES APRN.ARIEL Service: ? Author [...] history is provided by the patient. No pediatric speech language pathologist was used. Review of Systems Constitutional: Negative. [...] be changed please change accordingly. Walt Robles APRN.DOUBLE SPINDLE SHAPER OPERATOR MDM ProceduresHigh[facility] Hospital04-03-2025 History of Present illness Narrative* Walt [...] history is provided by the patient. No pediatric speech language pathologist was used. Review of Systems Constitutional: Negative. [...] be changed please change accordingly. Walt Robles APRN.DOUBLE SPINDLE SHAPER OPERATOR [facility] Procedures documented in this encounterWhite Hospital04-02-2025 NoteHNO ID: [id number] Author: MICHAELA DAVILA MA Service: ? Author Type: Radiotelephone Operator Type: Progress Notes Filed: 02/18/2025 16:19 Note Text: Ambulatory Ear Lavage Pre-treatment: No pre-treatment Treatment: Right ear Equipment and Irrigation solution and Volume used: Single use syringe with single use irrigation tip Water Return flow appearance: Debris Patient tolerated procedure: yes Tympanic membrane assessment: Tympanic membrane assessed by LIP pre and post procedureHighland District Hospital04-02-2025 History of Present illness Narrative* Michaela Davila MA - 02/18/2025 11:19 AM EDT Ambulatory Ear Lavage Pre-treatment: No pre-treatment Treatment: Right ear Equipment and Irrigation solution and Volume used: Single use syringe with single use irrigation tip Water Return flow appearance: Debris Patient tolerated procedure: yes Tympanic membrane assessment: Tympanic membrane assessed by LIP pre and post procedure * Mariposa Salinas APRN.DOUBLE SPINDLE SHAPER OPERATOR - 02/18/2025 10:26 AM EDT CC: Patient [...] Level: 2 - Straightforward documented in this encounterWhite Hospital04-02-2025 NoteHNO ID: [id number] Author: MARIPOSA SALINAS APRN.CNP Service: ? Author [...] Patient agreeable to treatment plan. Mariposa Salinas APRN.ARIEL Medical Decision Making: Problems: Minimal: Self-limited or minor problem Data: Unique test(s) ordered: 1 Risk: Low: Low risk from testing/treatment Medical Decision Making Level: 2 - StraightforwardHighland District Hospital 02-04-2025 NoteHNO ID: [id number] Author: DILLAN SANTIAGO MD Service: ? Author [...] increased anxiety or adv (more content not included)...[facility]03-19[facility] History of Present illness Narrative* Dillan [...] patient consented to the use of ambient [employer] software for draft documentation of the visit consistent with [facility] Notice of Privacy Practices. Dillan Santiago MD documented in this encounterWhite Hospital03-19-2025 Instructions* Patient Instructions* Dillan Santiago MD [...] in managing your health. documented in this encounterWhite Hospital03-19-2025 Telephone encounter Note * Telephone Encounter - Mckenzie Lombardo LPN - 02/04/2025 10:47 AM EDT Patient Protagenhart message requesting the following refill Refill(s) Requested: Requested Prescriptions Pending Prescriptions Disp Refills donepezil (ARICEPT) 5 mg tablet 30 tablet 11 Sig: Take 1 tablet by mouth daily at bedtime. ALLERGIES No Known Allergies (home) [phone] (cell) Last Office Visit Date: 12/10/2024 Last Distance Health Visit: Visit date not found Future Appointment: 02/04/2025 The patients preferred pharmacy has been captured for this encounter? yes Request is for script(s) to be escript to pharmacy. Mckenzie Lombardo LPN [facility]03-19-2025 Miscellaneous Notes* Telephone Encounter - Mckenzie Lombardo LPN - 02/04/2025 10:47 AM EDT Patient MyChart message requesting the following refill Refill(s) Requested: Requested Prescriptions Pending Prescriptions Disp Refills donepezil (ARICEPT) 5 mg tablet 30 tablet 11 Sig: Take 1 tablet by mouth daily at bedtime. ALLERGIES No Known Allergies (home) [phone] (cell) Last Office Visit Date: 12/10/2024 Last Distance Health Visit: Visit date not found Future Appointment: 02/04/2025 The patients preferred pharmacy has been captured for this encounter? yes Request is for script(s) to be escript to pharmacy. Mckenzie Lombardo LPN documented in this encounterWhite Hospital03-13-2025 Telephone encounter Note * Telephone Encounter - Michaela Davila MA - 01/29/2025 8:47 AM EDT Please assist patient in scheduling geriatric follow up to review MRI results per Dr Santiago. [facility]03-13-2025 Miscellaneous Notes* Telephone Encounter - Michaela [...] Regards, Dillan Santiago MD documented in this encounterWhite Hospital03-13-2025 Telephone encounter Note * Telephone Encounter [...] appointment with me. Regards, Dillan Santiago MD [facility]03-10-2025 Miscellaneous Notes* Telephone Encounter - Michaela Davila MA - 01/26/2025 2:39 PM EDT Please see patient directions for use. Patient will run out of medication before fill date. documented in this encounterWhite Hospital03-10-2025 Telephone encounter Note * Telephone Encounter - Michaela Davila MA - 01/26/2025 2:39 PM EDT Please see patient directions for use. Patient will run out of medication before fill date. [facility]03-10-2025 Telephone encounter Note* Telephone Encounter - [...] Please review and advise, Kecia Red RN [facility]03-10-2025 Miscellaneous Notes* Telephone Encounter - Kecia [...] advise, Kecia Red RN documented in this encounterWhite Hospital03-08-2025 History of Present illness Narrative* Manisha [...] PATIENT PRESENTS WITH AN IMPLANTABLE OR ATTACHED PHYSICIAN INTERVENTIONAL CARDIOLOGIST: No RADIOLOGY DEPARTMENT: MR; Exam(s) Completed: Head: Routine Brain (QUANT) PERIPHERAL IV DATA: Not applicable SIGNED BY: ROGELIO Osborne)(MR) January 24, 2025 1:31 PM documented in this encounterWhite Hospital03-08-2025 NoteHNO ID: [id number] Author: MANISHA JOSEPH RT (R) Service: Radiology [...] PATIENT PRESENTS WITH AN IMPLANTABLE OR ATTACHED PHYSICIAN INTERVENTIONAL CARDIOLOGIST: No RADIOLOGY DEPARTMENT: MR; Exam(s) Completed: Head: Routine Brain (QUANT) PERIPHERAL IV DATA: Not applicable SIGNED BY: RT [place](Mae)(MR) January 24, 2025 1:31 [facility] Telephone encounter Note* Telephone Encounter - Mariposa Salinas APRN.CNP - 01/22/2025 3:13 PM EST [facility] website checked and validated. All prescriptions have been APPROPRIATELY filled. No suspiciousactivity was identified. 01/22/2025 by Mariposa Salinas APRN.CNP [facility]03-06-2025 Miscellaneous Notes* Telephone Encounter - Mariposa Salinas APRN.CNP - 01/22/2025 3:13 PM EST [facility] website checked and validated. All prescriptions have [...] you. Radha Haro LPN. documented in this encounterWhite Hospital03-05-2025 Telephone encounter Note * Telephone Encounter [...] Please advise. Thank you. Radha Haro LPN. [facility]02-13-2025 Telephone encounter Note* Telephone Encounter - [...] Cruz LPN January 01, 2025 8:02 AM [facility]02-13-2025 Miscellaneous Notes* Telephone Encounter - Jada [...] 01, 2025 8:02 AM documented in this encounterWhite Hospital02-06-2025 Telephone encounter Note * Telephone Encounter - Nusrat Palmer LPN - 12/25/2024 12:50 PM EST Received one lab from [facility] via [facility]. Uploaded to [facility] via [facility]dy. Nusrat Palmer LPN [facility]02-06-2025 Miscellaneous Notes* Telephone Encounter - Nusrat Palmer LPN - 12/25/2024 12:50 PM EST Received one lab from [facility] via [facility]. Uploaded to [facility] via [facility]dy. Nusrat Palmer LPN * Telephone Encounter - Nusrat Palmer LPN - 12/23/2024 4:45 PM EST Faxed signed Authorization to Disclose Health [facility] to office of Dr. Ovalle for urological records. Nusrat Palmer LPN documented in this encounterWhite Hospital02-04-2025 Telephone encounter Note * Telephone Encounter - Nusrat Palmer LPN - 12/23/2024 4:45 PM EST Faxed signed Authorization to Disclose Health Information to [facility] to office of Dr. Ovalle for urological records. Nusrat Palmer LPN [facility]02-04-2025 NoteHNO ID: [id number] Author: GRAZYNA BRIGHT RN Service: ? Author Type: Physician Finisher Operator Type: Progress Notes Filed: 05/19/2025 09:06 Note Text: [facility] NEW PATIENT CLINIC NOTE (F) SERVICE DATE: [...] for permanent urinary reten (more content not included)...[facility]02-04[facility] History of Present illness Narrative* Tom Baltazar PA-C - 12/23/2024 10:59 AM EST Images from the original note were not included. [facility] NEW PATIENT CLINIC NOTE [...] VADIM Stanford MT, PA-C documented in this encounterWhite Hospital01-28-2025 Miscellaneous Notes* Telephone Encounter - Colten Greer MA - 12/16/2024 2:33 PM EST Spoke with Giovanni at [facility]. Once he has seen the patient and admitted into their program, he will be faxing forms for Dr. Santiago to sign. Patient's daughter informed and we will await forms. Colten Greer MA * Telephone Encounter - Mckenzie Lombardo LPN - 12/12/2024 2:28 PM EST [facility], left message with Intake. To call office back [facility]# [phone] Mckenzie Lombardo LPN December 12, 2024 2:29 PM * Telephone Encounter - Colten Greer MA - 12/10/2024 2:10 PM EST Patient's daughter states that [facility] needs something from Dr. Santiago that its ok for patient to attend but not sure what exactly is needed. Phone call to [facility] for intake to contact our office to see what information they need from us. Colten Greer MA documented in this encounterWhite Hospital01-28-2025 Telephone encounter Note * Telephone Encounter - Colten Greer MA - 12/16/2024 2:33 PM EST Spoke with Giovanni at [facility]. Once he has seen the patient and admitted into their program, he will be faxing forms for Dr. Santiago to sign. Patient's daughter informed and we will await forms. Colten Greer MA [facility]01-27-2025 Telephone encounter Note* Telephone Encounter - Mariposa Salinas APRN.CNP - 12/15/2024 7:14 AM EST [facility] website checked and validated. All prescriptions have been APPROPRIATELY filled. No suspiciousactivity was identified. 12/15/2024 by Mariposa Salinas APRN.ARIEL [facility]01-27-2025 Miscellaneous Notes* Telephone Encounter - Mariposa Salinas APRN.CNP - 12/15/2024 7:14 AM EST [facility] website checked and validated. All prescriptions have been APPROPRIATELY filled. No suspiciousactivity was identified. 12/15/2024 by Mariposa Salinas APRN.ARIEL * Telephone Encounter - Mckenzie Lombardo LPN - 12/12/2024 3:16 PM EST Patient Protagenhart message requesting the following refill Refill(s) Requested: Requested Prescriptions Pending Prescriptions Disp Refills clonazePAM (KLONOPIN) 0.5 mg tablet 45 tablet 0 Sig: Take 1 tablet by mouth three times a day as needed for anxiety for up to 30 days. ALLERGIES No Known Allergies (home) [phone] (cell) Last Office Visit Date: 11/05/2024 Last Distance Health Visit: Visit date not found Future Appointment: 02/04/2025 The patients preferred pharmacy has been captured for this encounter? yes Request is for script(s) to be escript to pharmacy. Mckenzie Lombardo LPN documented in this encounterCleveland [id number] Telephone encounter Note * Telephone Encounter - Mckenzie Lombardo LPN - 12/12/2024 3:16 PM EST Patient MyChart message requesting the following refill Refill(s) Requested: Requested Prescriptions Pending Prescriptions Disp Refills clonazePAM (KLONOPIN) 0.5 mg tablet 45 tablet 0 Sig: Take 1 tablet by mouth three times a day as needed for anxiety for up to 30 days. ALLERGIES No Known Allergies (home) [phone] (cell) Last Office Visit Date: 11/05/2024 Last Distance Health Visit: Visit date not found Future Appointment: 02/04/2025 The patients preferred pharmacy has been captured for this encounter? yes Request is for script(s) to be escript to pharmacy. Mckenzie Lombardo LPN [facility]01-24-2025 Telephone encounter Note* Telephone Encounter - Mckenzie Lombardo LPN - 12/12/2024 2:28 PM EST [facility], left message with Intake. To call office back [facility]# [phone] Mckenzie Lombardo LPN December 12, 2024 2:29 PM [facility]01-22-2025 Telephone encounter Note* Telephone Encounter - Colten Greer MA - 12/10/2024 2:10 PM EST Patient's daughter states that [facility] needs something from Dr. Santiago that its ok for patient to attend but not sure what exactly is needed. [facility] our office to see what information they need from us. Colten Greer MA [facility]01-22-2025 NoteHNO ID: [id number] Author: COLTEN GREER MA Service: ? Author Type: Radiotelephone Operator Type: Progress Notes Filed: 12/10/2024 17:10 Note Text: Patient presents for geriatric consult with daughter Teodora. Rooming intake completed with patient and Teodora to ensure accuracy. PHQ-9 and MOCA reviewed with patient and entered into questionnaires. Colten Greer [facility]01-22-2025 History of Present illness Narrative* Colten Greer MA - 12/10/2024 1:11 PM EST Patient presents for geriatric consult with daughter Teodora. Rooming intake completed with patient and Teodora to ensure accuracy. PHQ-9 and MOCA reviewed with patient and entered into questionnaires. Colten Greer MA * Dillan Santiago MD - 12/10/2024 12:54 PM EST [facility] Initial Consult Michaela [...] on her own. They are looking into [facility]. Have cameras installed so they [...] she knows and feels. Just moved to [place] where her daughter lives after needing to sell her 3 story home to allow her to continue to live independently. Last PCP was Ludin Richey in the [facility]. Is now in her own 1 level apartment. Needs assistance with medication dispensing and is needing support to drive herto appointments and to the store. Is hoping to go to [facility] a few times a week as well. [...] UTIs and followed with a urologist in [place]. Denies abdominal pain, fever, chills, or dark/foul [...] secure location? No Social History: Primary language: Citizen Of [place] Marital Status: Living situation: Home w/ Family Socially engaged? (participates in activities such as clubs, anabaptism, community center, sports, games, visiting friends/relatives, etc?): YES once a week she goes out. 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 NO [...] , Taking? Yes, Authorizing Provider Mariposa Salinas APRN.DOUBLE SPINDLE SHAPER OPERATOR Medication escitalopram oxalate (LEXAPRO) 20 mg tablet, Sig Take 1 tablet by mouth once daily., Start Date 11/05/24, End Date , Taking? Yes, Authorizing Provider Mariposa Salinas APRN.DOUBLE SPINDLE SHAPER OPERATOR Medication traZODone (DESYREL) 50 mg tablet, Sig Take 1 tablet by mouth daily at bedtime., Start Date 11/05/24, End Date , Taking? Yes, Authorizing Provider Mariposa Salinas APRN.DOUBLE SPINDLE SHAPER OPERATOR Medication clonazePAM (KLONOPIN) 0.5 mg tablet, Sig Take 1 tablet by mouth three times a day as needed for anxiety for up to 30 days., Start Date 11/05/24, End Date 12/05/24, Taking? , Authorizing Provider Mariposa Salinas APRN.DOUBLE SPINDLE SHAPER OPERATOR Other OTC med/supplements: None Medication Review: - ANY HIGH RISK MEDICATIONS (STOPP CRITERIA): NO ALLERGIES No Known Allergies Review of Systems Difficulty chew/swallow: No Pain: No Tremor: No Incontinence - During the last 3 months did you leak urine? NO Constipation/Change in bowel habits: NO Vision No vision problems reported Follows with hospital laboratory technician:YES Hearing - Hearing aid : Denies any [...] encouraged to make her paper work for [employer] and living mike. REFERRALS AND RECOMMENDATIONS 1. Discussed the cognitive benefits of memory exercises and reviewed examples 2. Discussed the cognitive benefits of physical exercise and socialization Dillan Santiago MD [facility] documented in this encounterWhite Hospital01-22-2025 NoteHNO ID: [id number] Author: DILLAN SANTIAGO MD Service: ? Author Type: Physician Type: Progress Notes Filed: 12/10/2024 17:10 Note Text: [facility] Initial Consult Michaela Brandt [...] on her own. They are looking into [facility]. Have cameras installed so they [...] she knows and feels. Just moved to [place] where her daughter lives after needing to sell her 3 story home to allow her to continue to live independently. Last PCP was Ludin Richey in the [facility]. Is now in her own 1 level apartment. Needs assistance with medication dispensing and is needing support to drive her to appointments and to the store. Is hoping to go to [employer] [place] a few times a week as well. [...] UTIs and followed with a urologist in [place]. Denies abdominal pain, fever, chills, or dark/foul [...] secure location? No Social History: Primary language: Citizen Of [place] Marital Status: Living situation: Home w/ Family Socially engaged? (participates in activities such as clubs, anabaptism, community center, sports, games, visiting friends/relatives, etc?): YES once a week she goes out. 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 NO [...] (LEXAPRO) 20 m (more content not included)... [facility]01-03-2025 Telephone encounter Note* Telephone Encounter - Mariposa Salinas APRN.CNP - 11/21/2024 1:10 PM EST Recently filled by Dr. Kaiden Salinas APRN.CNP [facility] Miscellaneous Notes* Telephone Encounter - Mariposa [...] - 11/14/2024 8:16 AM EST Family member [employer] message requesting the following refill Refill(s) Requested: Requested Prescriptions Pending Prescriptions Disp Refills clonazePAM (KLONOPIN) 0.5 mg tablet 45 tablet 0 Sig: Take 1 tablet by mouth three times a day as needed for anxiety for up to 30 days. ALLERGIES No Known Allergies (home) [phone] (cell) Last Office Visit Date: 11/05/2024 Last Distance Health Visit: Visit date not found Future Appointment: 02/04/2025 The patients preferred pharmacy has been captured for this encounter? yes Request is for script(s) to be escript to pharmacy. Mckenzie Lombardo LPN documented in this encounterWhite Hospital12-29-2024 Telephone encounter Note * Telephone Encounter - Rosaura Melchor MD - 11/16/2024 8:12 PM EST RX filled 11/13 per PDMP Ludin Richey prescribed med Kevin Mariposa also sent RX 11/05 Check with patient if got RX. If not, check with pharmacy [facility] Work Phone: 1(991) 893-336212-27-2024 Telephone encounter Note* Telephone Encounter - Mckenzie Lombardo LPN - 11/14/2024 8:16 AM EST Family member [employer] message requesting the following refill Refill(s) Requested: Requested Prescriptions Pending Prescriptions Disp Refills clonazePAM (KLONOPIN) 0.5 mg tablet 45 tablet 0 Sig: Take 1 tablet by mouth three times a day as needed for anxiety for up to 30 days. ALLERGIES No Known Allergies (home) [phone] (cell) Last Office Visit Date: 11/05/2024 Last Distance Health Visit: Visit date not found Future Appointment: 02/04/2025 The patients preferred pharmacy has been captured for this encounter? yes Request is for script(s) to be escript to pharmacy. Mckenzie Lombardo LPN [facility]12-19-2024 Telephone encounter Note* Telephone Encounter - Jada Dela Cruz LPN - 11/06/2024 8:39 AM EST Received a request from pt's pharmacy. See message from pharmacy. Jada Dela Cruz LPN [facility]12-19-[facility]24 Miscellaneous Notes* Telephone Encounter - Jada Dela Cruz LPN - 11/06/2024 8:39 AM EST Received a request from pt's pharmacy. See message from pharmacy. Jada Dela Cruz LPN documented in this encounterWhite Hospital12-18-2024 NoteHNO ID: [id number] Author: MARIPOSA SALINAS APRN.DOUBLE SPINDLE SHAPER OPERATOR Service: ? Author Type: Nurse Practitioner Type: Progress Notes Filed: 11/05/2024 15:38 Note Text: CC: Patient presents with: Establish Care: Establish Care HPI Michaela Brandt is a 84 year old female who presents today for establish care. Just moved to [place] where her daughter lives after needing to sell her 3 story home to allow her to continue to live independently. Last PCP was Ludin Richey in the [facility]. Is now in her own 1 level apartment. Needs assistance with medication dispensing and is needing support to drive her to appointments and to the store. Is hoping to go to [employer] a few times a week as well. [...] UTIs and followed with a urologist in [place]. Denies abdominal pain, fever, chills, or dark/foul [...] 311, ICD10: F41.9, F32.A (more content not included)...[facility]12-18-[facility]24 History of Present illness Narrative* Rita, ALEX Monge.DOUBLE SPINDLE SHAPER OPERATOR - 11/05/2024 2:39 PM EST CC: Patient presents with: Establish Care: Establish Care HPI Michaela Brandt is a 84 year old female who presents today for establish care. Just moved to [place] where her daughter lives after needing to sell her 3 story home to allow her to continue to live independently. Last PCP was Ludin Richey in the [facility]. Is now in her own 1 level apartment. Needs assistance with medication dispensing and is needing support to drive herto appointments and to the store. Is hoping to go to [employer] a few times a week as well. [...] UTIs and followed with a urologist in [place]. Denies abdominal pain, fever, chills, or dark/foul [...] - Instructed patient to contact office or [id number] after-hours promptly should condition worsen or any new symptoms appear. - Counsel[facility] and after hours crisis line 3. Hypothyroidism, [...] on exam table due to balance - [facility] - CONSULT TO GERIATRICS 5. Ambulates with cane - ICD9: V46.8, ICD10: Z99.89 As above - [facility] - CONSULT TO GERIATRICS 6. Concern about memory - ICD9: V65.5, ICD10: Z71.1 Patient denies but did have moments of not remembering past information correctly. Daughter feels memory is a concern. - lives alone so needs medication dispenser to help patient appropriately take her medications. - [facility] - COMPREHENSIVE METABOLIC PANEL - [...] for her to independently bathe herself. - [facility] - CONSULT TO GERIATRICS 10. [...] plan. Mariposa Salinas APRN.CNP documented in this encounterRoscoe ClinicDisst[facility] summary Author Domingo Darby [facility] Note Date/Time May 17, 2025 11:3 3am [facility] Medical Records Department [address] [place] [address] Emergency Department Summary 05/17/25 MR#: [id number] Acct: [id number] Name: MICHAELA BRANDT Rep #:[id number] : [...] her occupational and physical therapy and some halfway. They also have cameras in and keep [...] Prior similar symptoms: Yes Recent Illness/Hospital[facility]: [facility] Medical History Closed intertrochanteric fracture of left [...] MDM MDM Narrative Medical decision making narrative: [id number] female with dementia lives at home with [...] 78.8 H Lymph % (Auto) 14.1 L [place] % (Auto) 5.1 Eos % (Auto) 0.9 Baso % (Auto) 0.6 Absolute Neuts (auto) 6.9 Absolute Lymphs (auto) 1.24 Nucleated RBC % 0 Sodium 142 Potassium 3.9 Chloride 104 Carbon Dioxide 26.5 Anion Gap 12 BUN 15 Creatinine 0.96 Est GFR (MDRD) Non-Af 58 L BUN/Creatinine Ratio 15.6 Glucose 97 Calcium 9.0 Urine Color Yellow Urine Clarity Clear Urine pH 6.0 Ur Specific Dillon 1.020 Urine Protein 30 H Urine Glucose [...] improving or return if worse. Print Language: Citizen Of [place] Disposition Disposition: Home, Self Care What to do if you have Problems For any increased pain, shortness of breath, bleeding, nausea or vomiting, chestpain, or any unexpected problems, contact your Primary Care Provider. Call [facility] ([phone]) or report to the closest Emergency Room. Call 911 if necessary. 05/17/25 1133 <Electronically signed by Domingo Darby MD> Cosigner Signature (if applicable): CC: Dr. Dillan Santiago MD ~ Signed [facility] Work Phone: Evaluation note* Diagnosis Onset Date Resolution Status Osteoarthritis of knees, bilateral noneactive [facility] Work Phone: Evaluation note* Diagnosis [...] Other urinary problems [facility] Diagnosis Hypothyroidism, unspecified type documented [facility] this [facility]* Diagnosis Hypothyroidism, unspecified type [facility]* Diagnosis Anxiety and depression Dysthymic disorder [facility] Diagnosis Anxiety and depression Dysthymic disorder [facility]* Diagnosis Cognitive impairment, mild, so stated- Primary Mild cognitive impairment, so stated Self-catheterizes urinary bladder Other specified conditions influencing health status Balance disorder Other symptoms involving nervous and musculoskeletal systems Concern about memory Anxiety and depression Dysthymic disorder Assistance needed for bathing Ambulates with cane [facility]* Diagnosis Anxiety and depression Dysthymic disorder [facility]* Diagnosis Anxiety and depression Dysthymic disorder [facility]* Diagnosis Retention of urine, unspecified- Primary Self-catheterizes urinary bladder Other specified conditions influencing health status Urinary problem Other urinary problems [facility]* Diagnosis Anxiety and depression Dysthymic disorder [facility]* Diagnosis Ambulatory dysfunction- Primary Difficulty in walking documented in this encounter [facility] note* Diagnosis Anxiety and depression Dysthymic disorder documented in this encounter [facility] note* Diagnosis Cognitive impairment, mild, so stated Mild cognitive impairment, so stated documented in this encounter [facility] note* Diagnosis Anxiety and depression Dysthymic disorder [facility]* Diagnosis 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, psychotic disturbance, mood disturbance, or anxiety ([facility])- Primary Impacted cerumen, right ear Insomnia due to mental disorder Generalized anxiety disorder [facility]* Diagnosis Impacted cerumen of right ear- Primary Impacted cerumen documented in this encounter [facility] note* Diagnosis Recurrent UTI (urinary tract infection)- Primary Urinary tract infection, site not specified documented in this encounter [facility] note* Diagnosis Urinary frequency- Primary documented in this encounter [facility] note* Diagnosis Anxiety and depression Dysthymic disorder documented in this encounter [facility] note* Diagnosis 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, psychotic disturbance, mood disturbance, or anxiety ([facility])- Primary Ambulatory dysfunction Difficulty in walking documented in this encounter [facility] note* Diagnosis Onset Date Resolution Status Admit Date Acute pain of left knee acute A pril 2024 1:47pm Closed intertrochanteric fra cture of left hip acute March 01, 2025 1:47pm Fall acute March 01 1:47pm [facility] Work Phone: Evaluation note* Diagnosis Ambulatory dysfunction- Primary Difficulty in walking Weakness of both lower extremities Balance disorder Other symptoms involving nervous and musculoskeletal systems S/P hip hemiarthroplasty Hip joint replacement by other means Closed fracture of left hip with delayed healing, subsequent encounter 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) Pressure injury of sacral region, unstageable ([facility]) Urinary catheter in place Other postprocedural status Malnutrition, unspecified type (HCC) Anxiety and depression Dysthymic disorder Insomnia, unspecified type Acute deep vein thrombosis (DVT) of proximal vein of left lower extremity (HCC) Chronic anticoagulation Long-term (current) use of anticoagulants Pressure injury of left buttock, stage 3 (HCC) documented [facility]* Diagnosis Onychomycosis- Primary Dermatophytosis of nail [facility]* Diagnosis Hypothyroidism, unspecified type Anxiety and depression Dysthymic disorder [facility]* Diagnosis Acute heart failure, unspecified heart failure type (HCC)- Primary Prediabetes Other abnormal glucose Urinary retention Retention of urine, unspecified Acute deep vein thrombosis (DVT) of calf muscle vein of left lower extremity ([facility]) Edema, unspecified type Self-catheterizes urinary bladder Other specified conditions influencing health status Weakness of both lower extremities S/P hip hemiarthroplasty Hip joint replacement by other means [facility]* Diagnosis Recurrent UTI- Primary Urinary tract infection, site not specified 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 ([facility]) Anxiety and depression Dysthymic disorder Acute heart failure, unspecified heart failure type (HCC) Self-catheterizes urinary bladder Other specified conditions influencing health status Urinary retention Retention of urine, unspecified Onychomycosis Dermatophytosis of nail Thickened nail Other specified disease of nail Acquired deformity of toe, unspecified laterality IGTN (ingrowing toe nail) Ingrowing nail [facility] instructions[facility] Orders* Physical Therapy Referral Location: None [facility] Work Phone: Hospital Discharge instructionsAdditional Instructions Plenty of fluids and cranberry juice. It appears that she has a UTI. Urine culture was sent. She will be started on antibiotic Keflex 1 pill 4 times a day for 1 week. Follow-up with your doctor if not improving or return if worse.[facility] Work Phone: [employer] for referral (narrative)No reason for referral information availableWMetroHealth [facility] Work Phone: Reason for visit Narrative* MRI/CT (Routine) - Closed Specialty Diagnoses / Procedures Referred By Paola t Referred To Contact MR IMAGING Diagnoses Cognitive impairment, mild, so stated Procedures MRI BRAIN W QUANT WO IVCON MRI BRAIN BRAIN STEM W/O CONTRAST MATERIAL Dillan Santiago MD [address] [place] [address] Phone: tel: fax: [place] [address] Referral ID Status Reason Start Date Expiration Date V isits Requested Visits Authorized [id number] Closed Auto-Generate d Referral 12/10/2024 01/09/2026 1 1 [facility] Summary Purpose Family History Relationship Condition Age at Onset Recorded Date/T aaliyha Not Specified Malignant neoplasm of prostate Unknown Relationship Condition Age at Onset Recorded Date/T aaliyah Not Specified Hypertension Unknown Advance Directives Advance Directive Response Recorded Date/ Time Advance Directives Yes October 6:36am Documents on File Type Date Recorded Patient It Risk And Assurance Senior Manager Expl anation Advance Directive(s) 11/24/2024 11:36 AM Documents on File Type Date Recorded Patient It Risk And Assurance Senior Manager Expl anation Advance Directive(s) 11/24/2024 11:36 AM Advance Directive Response Recorded Date/ Time Living Will Yes January 17, 2025 7:42pm Do you have a Healthcare Pow er of Continuity Coordinator? Yes January 17, 2025 7:42pm Name of Medical Power of Continuity Coordinator MARIBETH COLTON ALVINAEMILY January 17, 2025 7:42pm Advance Directive Response Recorded Date/ Time Living Will Yes January 17, 2025 7:42pm Do you have a Healthcare Pow er of Continuity Coordinator? Yes January 17, 2025 7:42pm Name of Medical Power of Continuity Coordinator MARIBETH COLTON ALVINAEMILY January 17, 2025 7:42pm Living Will No March 01, 2025 3:09pm Do you have a Healthcare Pow er of Continuity Coordinator? No March 01, 2025 3:09pm Advance Directive Response Recorded Date/ Time Living Will No March 05, 2025 10:51am Do you have a Healthcare Pow er of Continuity Coordinator? Yes March 05, 2025 10:51am Name of Medical Power of Continuity Coordinator MARIBETH SHIN, DAUGHTER March 05, 2025 10:51a m Living Will Yes January 17, 2025 7:42pm Do you have a Healthcare Pow er of Continuity Coordinator? Yes January 17, 2025 7:42pm Name of Medical Power of Continuity Coordinator MARIBETH CAGLERACHEAL January 17, 2025 7:42pm Living Will No March 01, 2025 3:09pm Do you have a Healthcare Pow er of Continuity Coordinator? No March 01, 2025 3:09pm Advance Directive Response Recorded Date/ Time Living Will No March 05, 2025 10:51am Do you have a Healthcare Pow er of Continuity Coordinator? Yes March 05, 2025 10:51am Name of Medical Power of Continuity Coordinator MARIBETH SHIN, DAUGHTER March 05, 2025 10:51a m Living Will Yes January 17, 2025 7:42pm Do you have a Healthcare Pow er of Continuity Coordinator? Yes January 17, 2025 7:42pm Name of Medical Power of Continuity Coordinator MARIBETH SHIN January 17, 2025 7:42pm Living Will No March 01, 2025 3:09pm Do you have a Healthcare Pow er of Continuity Coordinator? No March 01, 2025 3:09pm Do you have a Healthcare Pow er of Continuity Coordinator? Yes May 17, 2025 9:33am Advance Directive Response Recorded Date/ Time Living Will No March 05, 2025 10:51am Do you have a Healthcare Pow er of Continuity Coordinator? Yes March 05, 2025 10:51am Name of Medical Power of Continuity Coordinator MARIBETH SHIN, DAUGHTER March 05, 2025 10:51am Living Will No March 01, 2025 3:09pm Do you have a Healthcare Pow er of Continuity Coordinator? No March 01, 2025 3:09pm Do you have a Healthcare Pow er of Continuity Coordinator? Yes May 17, 2025 9:33am Chief Complaint [...] 8:4 1am LABWORK March 23, 2025 5:00am RESIDENTIAL LAB WORK March 30, 2025 5:0 0am RESIDENTIAL LAB WORK April 06, 2025 4:0 0am [...] 8:4 1am LABWORK March 23, 2025 5:00am RESIDENTIAL LAB WORK March 30, 2025 5:0 0am RESIDENTIAL LAB WORK April 06, 2025 4:0 0am [...] 5:00am ADMISSION EXAM March 24, 2025 5:00pm RESIDENTIAL LAB WORK March 30, 2025 5:0 0am RESIDENTIAL LAB WORK April 06, 2025 4:0 0am [...] 5:00am ADMISSION EXAM March 24, 2025 5:00pm RESIDENTIAL LAB WORK March 30, 2025 5:0 0am NEW CONCERN May 12th, 2025 4:30p m RESIDENTIAL LAB WORK April 06, 2025 4:0 0am [...] 5:00am ADMISSION EXAM March 24, 2025 5:00pm RESIDENTIAL LAB WORK March 30, 2025 5:0 0am NEW CONCERN March 30, 2025 4:30p m RESIDENTIAL LAB WORK April 06, 2025 4:0 0am DISCHARGE EXAM April 17, 2025 1:30p m confusion May 17, 2025 9:31 am Reason for Referral Specialty Diagnoses / Procedures Referred By Contac t Referred To Contact Gerontology Diagnoses Self-catheterizes urinary bladder Balance disorder Concern about memory Anxiety and depression Assistance needed for bathing Ambulates with cane Procedures CONSULT TO GERIATRICS OFFICE/OUTPATIENT [facility] 60 MINUTES OlderMariposa APRN.DOUBLE SPINDLE SHAPER OPERATOR [address] [place] [address] Referral ID Status Reason Start Date Expiration Date Visits Requested Visits Authorized [id number] Authorized PCP Requested Referral 4 11/05/2025 1 1 Specialty Diagnoses / Procedures Referred By Contac t Referred To Contact Urology Diagnoses Self-catheterizes urinary bladder Unable to void Urinary problem Procedures CONSULT TO UROLOGY OFFICE/OUTPATIENT [facility] 60 MINUTES Mariposa Salinas APRN.DOUBLE SPINDLE SHAPER OPERATOR [address] [place] [address] Referral ID Status Reason Start Date Expiration Date Visits Requested Visits Authorized [id number] Authorized PCP Requested Referral 4 11/05/2025 1 1 Specialty Diagnoses / Procedures Referred By Contac t Referred To Contact MR IMAGING Diagnoses Cognitive impairment, mild, so stated Procedures MRI BRAIN W QUANT WO IVCON MRI BRAIN BRAIN STEM W/O CONTRAST MATERIAL Dillan Santiago MD [address] [place] [address] [place] [address] Referral ID Status Reason Start Date Expiration Date Visits Requested Visits Authorized [id number] New Request Auto-Generat ed Referral 12/10/2024 01/09/2026 1 1 Additional Source Comments INFORMATION SOURCE (unrecogn ized section and content) DATE CREATED AUTHOR 12/22/2022 [facility] DATE CREATED AUTHOR AUTHOR'S ORGANIZ ATION 01/31/2024 [facility] DATE CREATED AUTHOR AUTHOR'S ORGANIZ ATION 01/26/2025 [facility] DATE CREATED AUTHOR AUTHOR'S ORGANIZ ATION 06/07/2025 [facility] DATE CREATED AUTHOR AUTHOR'S ORGANIZ ATION 06/07/2025 [facility] Care Teams (unrecognized sec tion and content) Team Status: Active Member Role Status Dates Ludin Richey MD Primary Care Provider Active Team Status: Inactive Member Role Status Dates Ludin Richey MD Primary Care Provider Active St art: January 17, 2024 End: January 17, 2024 Ludin Suarez MD Attending Provider Active Start: January 17, 2024 End: January 17, 2024 Customer Support Assistant Relationship Specialty Start Date End Date Dillan Santiago MD [address] [place] [address] PCP - General Internal Medicine 11/05/24 Customer Support Assistant Relationship Specialty Start Date End Date Dillan Santiago MD [address] [place] [address] PCP - General Internal Medicine 11/05/24 Customer Support Assistant Relationship Specialty Start Date End Date Dillan Santiago MD [address] [place], [place] [id number] PCP - General Internal Medicine 11/05/24 Customer Support Assistant Relationship Specialty Start Date End Date Dillan Santiago MD [address] [place] [address] PCP - General Internal Medicine 11/05/24 Customer Support Assistant Relationship Specialty Start Date End Date Dillan Santiago MD [address] [place] [address] PCP - General Internal Medicine 11/05/24 Customer Support Assistant Relationship Specialty Start Date End Date Dillan Santiago MD [address] [place] [address] PCP - General Internal Medicine 11/05/24 Customer Support Assistant Relationship Specialty Start Date End Date Dillan Santiago MD [address] [facility] [place] [address] PCP - General Internal Medicine 11/05/24 Customer Support Assistant Relationship Specialty Start Date End Date Dillan Santiago MD [address] [facility] [place] [address] PCP - General Internal Medicine 11/05/24 Customer Support Assistant Relationship Specialty Start Date End Date Dillan Santiago MD [address] [facility] [place] [address] PCP - General Internal Medicine 11/05/24 Customer Support Assistant Relationship Specialty Start Date End Date Dillan Santiago MD [address] [facility] [place] [address] PCP - General Internal Medicine 11/05/24 Customer Support Assistant Relationship Specialty Start Date End Date Dillan Santiago MD [address] [facility] [place] [address] PCP - General Internal Medicine 11/05/24 Customer Support Assistant Relationship Specialty Start Date End Date Dillan Santiago MD [address] [place] [address] PCP - General Internal Medicine 11/05/24 Customer Support Assistant Relationship Specialty Start Date End Date Dillan Santiago MD [address] [place] [address] PCP - General Internal Medicine 11/05/24 Mariposa Salinas APRN.DOUBLE SPINDLE SHAPER OPERATOR [address] [facility] [place] [address] Floatlight Loading Supervisor Internal Medicine 01/30/25 Customer Support Assistant Relationship Specialty Start Date End Date Dillan Santiago MD [address] [facility] [place] [address] PCP - General Internal Medicine 11/05/24 Mariposa Salinas FOOD SERVICE CASHIER.DOUBLE SPINDLE SHAPER OPERATOR [address] [facility] [place] [address] Floatlight Loading Supervisor Internal Medicine 01/30/25 Customer Support Assistant Relationship Specialty Start Date End Date Dillan Santiago MD [address] [facility] [place] [address] PCP - General Internal Medicine 11/05/24 Mariposa Salinas, FOOD SERVICE CASHIER.DOUBLE SPINDLE SHAPER OPERATOR [address] [facility] [place] [address] Floatlight Loading Supervisor Internal Medicine 01/30/25 Customer Support Assistant Relationship Specialty Start Date End Date Dillan Santiago MD [address] [place] [address] PCP - General Internal Medicine 11/05/24 Mariposa Salinas FOOD SERVICE CASHIER.DOUBLE SPINDLE SHAPER OPERATOR [address] [facility] [place] [address] Floatlight Loading Supervisor Internal Medicine 01/30/25 Customer Support Assistant Relationship Specialty Start Date End Date Dillan Santiago MD [address] [facility] [place] [address] PCP - General Internal Medicine 11/05/24 Mariposa Salinas APRN.DOUBLE SPINDLE SHAPER OPERATOR [address] [facility] [place] [address] Floatlight Loading Supervisor Internal Medicine 01/30/25 Customer Support Assistant Relationship Specialty Start Date End Date Dillan Santiago MD [address] [facility] [place] [address] PCP - General Internal Medicine 11/05/24 Mariposa Salians APRN.DOUBLE SPINDLE SHAPER OPERATOR [address] [facility] [place] [address] Floatlight Loading Supervisor Internal Medicine 01/30/25 Team Status: Active Member [...] Active Start : March 01, 2025 Dr. Roor Long DO Attending Provider Active S tart: March 01, 2025 Customer Support Assistant Relationship Specialty Start Date End Date Dillan Santiago MD [address] [place] [address] PCP - General Internal Medicine 11/05/24 Older, ALEX Monge.DOUBLE SPINDLE SHAPER OPERATOR [address] [facility] [place] [address] Floatlight Loading Supervisor Internal Medicine 01/30/25 Team Status: Inactive Member [...] Provider Active S tart: March 09, 2025 Customer Support Assistant Relationship Specialty Start Date End Date Dillan Santiago MD [address] [place] [address] PCP - General Internal Medicine 11/05/24 Mariposa Salinas APRN.DOUBLE SPINDLE SHAPER OPERATOR [address] [facility] [place] [address] Floatlight Loading Supervisor Internal Medicine 01/30/25 Customer Support Assistant Relationship Specialty Start Date End Date Dillan Santiago MD [address] [place] [address] PCP - General Internal Medicine 11/05/24 Mariposa Salinas APRN.DOUBLE SPINDLE SHAPER OPERATOR [address] [facility] [place] [address] Floatlight Loading Supervisor Internal Medicine 01/30/25 Customer Support Assistant Relationship Specialty Start Date End Date Dillan Santiago MD [address] [facility] [place] [address] PCP - General Internal Medicine 11/05/24 Mariposa Salinas APRN.DOUBLE SPINDLE SHAPER OPERATOR [address] [facility] [place] [address] Floatlight Loading Supervisor Internal Medicine 01/30/25 Customer Support Assistant Relationship Specialty Start Date End Date Dillan Santiago MD [address] [place] [address] PCP - General Internal Medicine 11/05/24 Mariposa Salinas APRN.DOUBLE SPINDLE SHAPER OPERATOR [address] [facility] [place] [address] Floatlight Loading Supervisor Internal Medicine 01/30/25 Customer Support Assistant Relationship Specialty Start Date End Date Dillan Santiago MD [address] [place] [address] PCP - General Internal Medicine 11/05/24 Mariposa Salinas APRN.DOUBLE SPINDLE SHAPER OPERATOR [address] [place] [address] Floatlight Loading Supervisor Internal Medicine 01/30/25 Customer Support Assistant Relationship Specialty Start Date End Date Dillan Santiago MD [address] [place] [address] PCP - General Internal Medicine 11/05/24 Mariposa Salinas, FOOD SERVICE CASHIER.DOUBLE SPINDLE SHAPER OPERATOR [address] [place] [address] Floatlight Loading Supervisor Internal Medicine 01/30/25 Customer Support Assistant Relationship Specialty Start Date End Date Dillan Santiago MD [address] [place] [address] PCP - General Internal Medicine 11/05/24 Mariposa Salinas, FOOD SERVICE CASHIER.DOUBLE SPINDLE SHAPER OPERATOR [address] [place] [address] Floatlight Loading Supervisor Internal Medicine 01/30/25 Team Status: Inactive Member [...] Referring Provider Active Start: April 06, 2025 Customer Support Assistant Relationship Specialty Start Date End Date Dillan Santiago MD [address] [facility] [place] [address] PCP - General Internal Medicine 11/05/24 Mariposa Salinas APRN.DOUBLE SPINDLE SHAPER OPERATOR [address] [place] [address] Floatlight Loading Supervisor Internal Medicine 01/30/25 Customer Support Assistant Relationship Specialty Start Date End Date Dillan Santiago MD [address] [place] [address] PCP - General Internal Medicine 11/05/24 Mariposa Salinas APRN.DOUBLE SPINDLE SHAPER OPERATOR [address] [place] [address] Floatlight Loading Supervisor Internal Medicine 01/30/25 Customer Support Assistant Relationship Specialty Start Date End Date Dillan Santiago MD [address] [facility] [place] [address] PCP - General Internal Medicine 11/05/24 Mariposa Salinas APRN.DOUBLE SPINDLE SHAPER OPERATOR [address] [place] [address] Floatlight Loading Supervisor Internal Medicine 01/30/25 Customer Support Assistant Relationship Specialty Start Date End Date Dillan Santiago MD [address] [facility] [place] [address] PCP - General Internal Medicine 11/05/24 Mariposa Salinas APRN.DOUBLE SPINDLE SHAPER OPERATOR [address] [facility] [place] [address] Floatlight Loading Supervisor Internal Medicine 01/30/25 Customer Support Assistant Relationship Specialty Start Date End Date Dillan Santiago MD [address] [facility] [place] [address] PCP - General Internal Medicine 11/05/24 Mariposa Salinas APRN.DOUBLE SPINDLE SHAPER OPERATOR [address] [facility] [place] [address] Floatlight Loading Supervisor Internal Medicine 01/30/25 Team Status: Active Member [...] Provider Active Start: March 04, 2025 Dr. lAlison Tran MD Attending Provider Active Start: March [...] May 17, 2025 End: May 17, 2025 Customer Support Assistant Relationship Specialty Start Date End Date Dillan Santiago MD [address] [place] [address] PCP - General Internal Medicine 11/05/24 Older, ALEX Monge.DOUBLE SPINDLE SHAPER OPERATOR [address] [place] [address] Floatlight Loading Supervisor Internal Medicine 01/30/25 Team Status: Inactive Member [...] 2025 End: March 30, 2025 Daya Morgan PETROLOGY TEACHER, PETROLOGY TEACHER-C Attending Provider Active Start: March 30, 2025 [...] End: April 17, 2025 Daya Morgan NP, PETROLOGY TEACHER-C Attending Provider Active Start: April 17, 2025 [...] May 17, 2025 End: May 17, 2025 Customer Support Assistant Relationship Specialty Start Date End Date Dillan Santiago MD [address] [place] [address] PCP - General Internal Medicine 11/05/24 Mariposa Salinas APRN.DOUBLE SPINDLE SHAPER OPERATOR [address] [place], [place] [address] Floatlight Loading Supervisor Internal Medicine 01/30/25 Customer Support Assistant Relationship Specialty Start Date End Date Dillan Santiago MD [address] [place], [place] [address] PCP - General Internal Medicine 11/05/24 Mariposa Salinas APRN.DOUBLE SPINDLE SHAPER OPERATOR [address] [place], [place] [address] Floatlight Loading Supervisor Internal Medicine 01/30/25 Goals (unrecognized section and [...] or prosecute any alcohol or drug abuse patient.[facility] HospitalIn the event this information is protected by the Federal Confidentiality of Alcohol and Drug Abuse Patient Records regulations: The Federal rules restrict any use of the information to criminally investigate or prosecute any alcohol or drug abuse patient.[facility] HospitalIn the event this information is protected by the Federal Confidentiality of Alcohol and Drug Abuse Patient Records regulations: The Federal rules restrict any use of the information to criminally investigate or prosecute any alcohol or drug abuse patient.[facility] HospitalIn the event this information is protected by the Federal Confidentiality of Alcohol and Drug Abuse Patient Records regulations: The Federal rules restrict any use of the information to criminally investigate or prosecute any alcohol or drug abuse patient.[facility] HospitalIn the event this information is protected by the Federal Confidentiality of Alcohol and Drug Abuse Patient Records regulations: The Federal rules restrict any use of the information to criminally investigate or prosecute any alcohol or drug abuse patient.[facility] HospitalIn the event this information is protected by the Federal Confidentiality of Alcohol and Drug Abuse Patient Records regulations: The Federal rules restrict any use of the information to criminally investigate or prosecute any alcohol or drug abuse patient.[facility] HospitalIn the event this information is protected by the Federal Confidentiality of Alcohol and Drug Abuse Patient Records regulations: The Federal rules restrict any use of the information to criminally investigate or prosecute any alcohol or drug abuse patient.[facility] HospitalIn the event this information is protected by the Federal Confidentiality of Alcohol and Drug Abuse Patient Records regulations: The Federal rules restrict any use of the information to criminally investigate or prosecute any alcohol or drug abuse patient.[facility] HospitalIn the event this information is protected by the Federal Confidentiality of Alcohol and Drug Abuse Patient Records regulations: The Federal rules restrict any use of the information to criminally investigate or prosecute any alcohol or drug abuse patient.[facility] HospitalIn the event this information is protected by the Federal Confidentiality of Alcohol and Drug Abuse Patient Records regulations: The Federal rules restrict any use of the information to criminally investigate or prosecute any alcohol or drug abuse patient.[facility] HospitalIn the event this information is protected by the Federal Confidentiality of Alcohol and Drug Abuse Patient Records regulations: The Federal rules restrict any use of the information to criminally investigate or prosecute any alcohol or drug abuse patient.[facility] HospitalIn the event this information is protected by the Federal Confidentiality of Alcohol and Drug Abuse Patient Records regulations: The Federal rules restrict any use of the information to criminally investigate or prosecute any alcohol or drug abuse patient.[facility] HospitalIn the event this information is protected by the Federal Confidentiality of Alcohol and Drug Abuse Patient Records regulations: The Federal rules restrict any use of the information to criminally investigate or prosecute any alcohol or drug abuse patient.[facility] HospitalIn the event this information is protected by the Federal Confidentiality of Alcohol and Drug Abuse Patient Records regulations: The Federal rules restrict any use of the information to criminally investigate or prosecute any alcohol or drug abuse patient.[facility] HospitalIn the event this information is protected by the Federal Confidentiality of Alcohol and Drug Abuse Patient Records regulations: The Federal rules restrict any use of the information to criminally investigate or prosecute any alcohol or drug abuse patient.[facility] HospitalIn the event this information is protected by the Federal Confidentiality of Alcohol and Drug Abuse Patient Records regulations: The Federal rules restrict any use of the information to criminally investigate or prosecute any alcohol or drug abuse patient.[facility] HospitalIn the event this information is protected by the Federal Confidentiality of Alcohol and Drug Abuse Patient Records regulations: The Federal rules restrict any use of the information to criminally investigate or prosecute any alcohol or drug abuse patient.[facility] HospitalIn the event this information is protected by the Federal Confidentiality of Alcohol and Drug Abuse Patient Records regulations: The Federal rules restrict any use of the information to criminally investigate or prosecute any alcohol or drug abuse patient.[facility] HospitalIn the event this information is protected by the Federal Confidentiality of Alcohol and Drug Abuse Patient Records regulations: The Federal rules restrict any use of the information to criminally investigate or prosecute any alcohol or drug abuse patient.[facility] HospitalIn the event this information is protected by the Federal Confidentiality of Alcohol and Drug Abuse Patient Records regulations: The Federal rules restrict any use of the information to criminally investigate or prosecute any alcohol or drug abuse patient.[facility] HospitalIn the event this information is protected by the Federal Confidentiality of Alcohol and Drug Abuse Patient Records regulations: The Federal rules restrict any use of the information to criminally investigate or prosecute any alcohol or drug abuse patient.[facility] HospitalIn the event this information is protected by the Federal Confidentiality of Alcohol and Drug Abuse Patient Records regulations: The Federal rules restrict any use of the information to criminally investigate or prosecute any alcohol or drug abuse patient.[facility] HospitalIn the event this information is protected by the Federal Confidentiality of Alcohol and Drug Abuse Patient Records regulations: The Federal rules restrict any use of the information to criminally investigate or prosecute any alcohol or drug abuse patient.[facility] HospitalIn the event this information is protected by the Federal Confidentiality of Alcohol and Drug Abuse Patient Records regulations: The Federal rules restrict any use of the information to criminally investigate or prosecute any alcohol or drug abuse patient.[facility] HospitalIn the event this information is protected by the Federal Confidentiality of Alcohol and Drug Abuse Patient Records regulations: The Federal rules restrict any use of the information to criminally investigate or prosecute any alcohol or drug abuse patient.[facility] HospitalIn the event this information is protected by the Federal Confidentiality of Alcohol and Drug Abuse Patient Records regulations: The Federal rules restrict any use of the information to criminally investigate or prosecute any alcohol or drug abuse patient.[facility] HospitalIn the event this information is protected by the Federal Confidentiality of Alcohol and Drug Abuse Patient Records regulations: The Federal rules restrict any use of the information to criminally investigate or prosecute any alcohol or drug abuse patient.[facility] HospitalIn the event this information is protected by the Federal Confidentiality of Alcohol and Drug Abuse Patient Records regulations: The Federal rules restrict any use of the information to criminally investigate or prosecute any alcohol or drug abuse patient.[facility] HospitalIn the event this information is protected by the Federal Confidentiality of Alcohol and Drug Abuse Patient Records regulations: The Federal rules restrict any use of the information to criminally investigate or prosecute any alcohol or drug abuse patient.[facility] HospitalIn the event this information is protected by the Federal Confidentiality of Alcohol and Drug Abuse Patient Records regulations: The Federal rules restrict any use of the information to criminally investigate or prosecute any alcohol or drug abuse patient.[facility] HospitalIn the event this information is protected by the Federal Confidentiality of Alcohol and Drug Abuse Patient Records regulations: The Federal rules restrict any use of the information to criminally investigate or prosecute any alcohol or drug abuse patient.[facility] HospitalIn the event this information is protected by the Federal Confidentiality of Alcohol and Drug Abuse Patient Records regulations: The Federal rules restrict any use of the information to criminally investigate or prosecute any alcohol or drug abuse patient.[facility] HospitalIn the event this information is protected by the Federal Confidentiality of Alcohol and Drug Abuse Patient Records regulations: The Federal rules restrict any use of the information to criminally investigate or prosecute any alcohol or drug abuse patient.[facility] HospitalIn the event this information is protected by the Federal Confidentiality of Alcohol and Drug Abuse Patient Records regulations: The Federal rules restrict any use of the information to criminally investigate or prosecute any alcohol or drug abuse patient.[facility] HospitalIn the event this information is protected by the Federal Confidentiality of Alcohol and Drug Abuse Patient Records regulations: The Federal rules restrict any use of the information to criminally investigate or prosecute any alcohol or drug abuse patient.[facility] HospitalIn the event this information is protected by the Federal Confidentiality of Alcohol and Drug Abuse Patient Records regulations: The Federal rules restrict any use of the information to criminally investigate or prosecute any alcohol or drug abuse patient.[facility] HospitalIn the event this information is protected by the Federal Confidentiality of Alcohol and Drug Abuse Patient Records regulations: The Federal rules restrict any use of the information to criminally investigate or prosecute any alcohol or drug abuse patient.[facility] HospitalIn the event this information is protected by the Federal Confidentiality of Alcohol and Drug Abuse Patient Records regulations: The Federal rules restrict any use of the information to criminally investigate or prosecute any alcohol or drug abuse patient.[facility] HospitalIn the event this information is protected by the Federal Confidentiality of Alcohol and Drug Abuse Patient Records regulations: The Federal rules restrict any use of the information to criminally investigate or prosecute any alcohol or drug abuse patient.[facility] HospitalIn the event this information is protected by the Federal Confidentiality of Alcohol and Drug Abuse Patient Records regulations: The Federal rules restrict any use of the information to criminally investigate or prosecute any alcohol or drug abuse patient.[facility] HospitalIn the event this information is protected by the Federal Confidentiality of Alcohol and Drug Abuse Patient Records regulations: The Federal rules restrict any use of the information to criminally investigate or prosecute any alcohol or drug abuse patient.[facility] HospitalIn the event this information is protected by the Federal Confidentiality of Alcohol and Drug Abuse Patient Records regulations: The Federal rules restrict any use of the information to criminally investigate or prosecute any alcohol or drug abuse patient.[facility] HospitalIn the event this information is protected by the Federal Confidentiality of Alcohol and Drug Abuse Patient Records regulations: The Federal rules restrict any use of the information to criminally investigate or prosecute any alcohol or drug abuse patient.[facility] HospitalIn the event this information is protected by the Federal Confidentiality of Alcohol and Drug Abuse Patient Records regulations: The Federal rules restrict any use of the information to criminally investigate or prosecute any alcohol or drug abuse patient.[facility] HospitalIn the event this information is protected by the Federal Confidentiality of Alcohol and Drug Abuse Patient Records regulations: The Federal rules restrict any use of the information to criminally investigate or prosecute any alcohol or drug abuse patient.[facility] HospitalIn the event this information is protected by the Federal Confidentiality of Alcohol and Drug Abuse Patient Records regulations: The Federal rules restrict any use of the information to criminally investigate or prosecute any alcohol or drug abuse patient.[facility] HospitalIn the event this information is protected by the Federal Confidentiality of Alcohol and Drug Abuse Patient Records regulations: The Federal rules restrict any use of the information to criminally investigate or prosecute any alcohol or drug abuse patient.[facility] HospitalIn the event this information is protected by the Federal Confidentiality of Alcohol and Drug Abuse Patient Records regulations: The Federal rules restrict any use of the information to criminally investigate or prosecute any alcohol or drug abuse patient.[facility] HospitalIn the event this information is protected by the Federal Confidentiality of Alcohol and Drug Abuse Patient Records regulations: The Federal rules restrict any use of the information to criminally investigate or prosecute any alcohol or drug abuse patient.[facility] HospitalIn the event this information is protected by the Federal Confidentiality of Alcohol and Drug Abuse Patient Records regulations: The Federal rules restrict any use of the information to criminally investigate or prosecute any alcohol or drug abuse patient.[facility] HospitalIn the event this information is protected by the Federal Confidentiality of Alcohol and Drug Abuse Patient Records regulations: The Federal rules restrict any use of the information to criminally investigate or prosecute any alcohol or drug abuse patient.[facility] HospitalIn the event this information is protected by the Federal Confidentiality of Alcohol and Drug Abuse Patient Records regulations: The Federal rules restrict any use of the information to criminally investigate or prosecute any alcohol or drug abuse patient.[facility] Reason for Visit (unrecogniz ed section [...] NEW HIGH MDM 60 MINUTES Rita, ALEX Monge.DOUBLE SPINDLE SHAPER OPERATOR [address] [place] [address] Referral ID Status Reason Start Date Expiration Date V isits Requested Visits Authorized [id number] Closed PCP Requested Referral 11/05/2024 11/05/2025 1 [...] NEW HIGH MDM 60 MINUTES Rita, ALEX Monge.DOUBLE SPINDLE SHAPER OPERATOR [address] [place] [address] Referral ID Status Reason Start Date Expiration Date V isits Requested Visits Authorized [id number] Closed PCP Requested Referral 11/05/2024 11/05/2025 1 1 Reason Comments Request Outside Medical Records Reason Onset Date Comments Refill Request 12/31/2024 Reason Onset Date Comments Refill Request 01/21/2025 Reason Onset Date Comments Refill Request 01/26/2025 Reason Onset Date Comments Refill Request 02/02/2025 Reason Comments Follow Up 01/24/25 MRI review re sults, [place] not a good fit per patient Reason Comments Recheck Follow up Reason Comments Urinary Problem Brain fog, 1 day Reason Comments Clinical Update Reason Onset Date Comments Refill Request 02/24/2025 Reason Onset Date Comments Results 01/28/2025 Reason Comments Follow HH Reason Comments ER F/U [facility] 03/01/25 fall-lef t hip FX; 03/02/25 Left hip cephalomedullary nail fixation, 03/04/25 transferred to [facility] TCU for rehabilitation, 03/19/25 transferred to [facility] for continuing rehabilitation Reason Comments Patient Update Orders Reason Comments Request information from [facility] Reason Comments Swelling Reason Comments Patient Update [...] BASED ON THE PRIMARY CLINICAL RECORDS. [facility] [employer] [facility]. provides no warranty or guarantee of the accuracy or completeness of information in this document.
[2025-06-20] MEDS: 0.9% Normal Saline (1000mL) 1,000 ML 50 ML IV (16:45)
--- NOTE | 2025-06-20 21:02 | NURSING ---
Pt's daughter, Martha Canas called in this evening. Her name is not on the contact list so I called her from the patient's room and had Pt talk to daughter. Martha called hospital again and so I talked to Martha and other daughter Maribeth, who was in the room and said I could update her and give information on the patient to Martha. Maribeth said she is the power of exceptional children's teacher and that Martha is not able to make decisions. According to Maribeth, Martha is irrational and may threaten to take pt out of the hospital. I called Martha and updated her on the pt's situation, that nothing was broken but that she will probably need rehab or a nursing on discharge because she is unable to return home safely. Martha was upset that Maribeth had not called her and wanted to be passed on to Maribeth that she should call her. Martha's number is [phone]
[2025-06-20] MEDS: Senna/Docusate Sodium 1 Tablet 2 TABLET PO (21:17)
[2025-06-20] MEDS: APIXABAN 5 MG TABLET PO (21:18)
[2025-06-21 03:48] VITALS: BP 134/63; PULSE 75; RESP 16; TEMP 36.5; O2SAT 96
[2025-06-21 04:59] LABS: Hematocrit 34.9 % (37-47); Hemoglobin 11.9 g/dL (12.0-15.0); Immature Granulocytes Count 0.110 X10^3/uL (0.0-0.0); Mean Corp Hgb Conc 34.1 g/dL (32-36); Mean Corpuscular Volume 87.9 fL (81-99); Mean Platelet Vol. 10.9 fl (6.2-12.0); NRBC Flagged by Analyzer 0 % (0-5); Platelet Count 203 K/mm3 (150-450); RBC Distribution Width CV 13.6 % (11.6-14.6); RBC Distribution Width SD 43.8 fl (35.1-43.9); Red Blood Count 3.97 M/mm3 (4.2-5.4); White Blood Count 14.5 K/mm3 (4.4-11.0)
[2025-06-21 05:22] LABS: AST(SGOT) 44 U/L (<=31); Alanine Aminotransfer ALT/SGPT 16 U/L (<=34); Albumin, Serum 3.4 g/dL (3.4-4.8); Alkaline Phosphatase 94 U/L (35-104); Anion Gap 12 (5-15); BUN 20 mg/dL (4-19); BUN/Creat Ratio 22.2 RATIO (10-20); Calcium,Total 8.8 mg/dL (7.6-11.0); Carbon Dioxide 23.9 mmol/L (21.0-32.0); Chloride 103 mmol/L (98-108); Estimated Creatinine Clearance 32.70 ml/min (50-250); Globulin 2.5 g/dL (2.2-4.2); Glucose 93 mg/dL (70-99); Potassium 3.5 mmol/L (3.3-5.1)
[2025-06-21 08:08] VITALS: BP 120/48; PULSE 75; RESP 17; TEMP 36.9; O2SAT 97
[2025-06-21] MEDS: Senna/Docusate Sodium 1 Tablet 2 TABLET PO ×2 (09:14→20:51)
[2025-06-21] MEDS: APIXABAN 5 MG TABLET PO ×2 (09:14→20:52)
--- NOTE | 2025-06-21 10:51 | PN.HOSP_ITS ---
Reason for Visit Chief Complaint: Knee pain after fall Subjective Subjective Patient evaluated at bedside with family members present, no abdominal pain or other new or acute complaints. Awaiting working with therapy, still has some pain in the knees Objective Data Objective Data Vital Signs: Vital Signs Temp Pulse Resp BP Pulse Ox O2 Del Method 98.4 F 75 17 120/48 L 97 Room Air 06/21/25 08:08 06/21/25 08:08 06/21/25 08:08 06/21/25 08:08 06/21/25 08:08 06/21/25 08:09 Oxygen Delivery Method Room Air Weight: 53.24 kg Body Mass Index (BMI) 22.9 Intake & Output: Intake and Output for Last 24 Hours 06/19/25 06/20/25 06/21/25 23:59 23:59 23:59 Intake Total 50 / 250 1179.17 / 1179.17 Output Total 200 / 375 250 / 250 Balance -150 / -125 929.17 / 929.17 Lab / Micro Data 06/21/25 03:43 06/21/25 03:43 Labs: Laboratory Results - last 24 hr 06/20/25 11:01: Urine Color Yellow, Urine Clarity Clear, Urine pH 5.0, Ur Specific [place]on 1.015, Urine Protein 30 H, Urine Glucose (UA) Normal, Urine Ketones 5 H, Urine Occult Blood 150 H, Urine Nitrite Positive H, Urine Bilirubin Negative, Urine Urobilinogen Normal, Ur Leukocyte Esterase 100 H, Urine RBC 10- 25 SEEN, Urine WBC 0 SEEN, Ur Squamous Epith Cells 0-5 SEEN, Urine Bacteria 1+, Urine Mucus 0 SEEN 06/21/25 03:43: WBC 14.5 H, RBC 3.97 L, Hgb 11.9 L, Hct 34.9 L, MCV 87.9, MCH 30.0, MCHC 34.1, RDW Std Deviation 43.8, RDW Coeff of Leslie 13.6, Plt Count 203, MPV 10.9, Immature Gran % (Auto) 0.800, Neut % (Auto) 78.3 H, Lymph % (Auto) 9.7 L, [place] % (Auto) 9.0, Eos % (Auto) 1.6, Baso % (Auto) 0.6, Absolute Neuts (auto) 11.3 H, Absolute Lymphs (auto) 1.40, Nucleated RBC % 0, Sodium 139, Potassium 3.5, Chloride 103, Carbon Dioxide 23.9, Anion Gap 12, BUN 20 H, Creatinine 0.92, Estim Creat Clear Calc 32.70 L, Est GFR (MDRD) Non-Af 62, BUN/Creatinine Ratio 22.2 H, Glucose 93, Calcium 8.8, Total Bilirubin 1.46 H, AST 44 H, ALT 16, Alkaline Phosphatase 94, Total Protein 5.9, Albumin 3.4, Globulin 2.5, Albumin/Globulin Ratio 1.3, TSH 1.600 06/21/25 07:29: POC Glucose 95 Physical Exam Narrative General: Awake and alert HEENT: Atraumatic, normocephalic Eyes: Anicteric, normal conjunctiva, extraocular movements grossly intact Neck: Supple Respiratory: Normal respiratory effort Cardiovascular: Regular rate GI: Soft, nontender, nondistended Extremities: No edema Musculoskeletal: Moving all extremities Neuro: No overt focal neurological deficits Skin: Does have some erythema over both knees and left knee with superficial abrasion Psych: Cooperative Assessment & Plan Assessment/Plan (1) Fall: (2) Generalized weakness: (3) Abnormal finding on urinalysis: (4) Self-catheterizes urinary bladder: PLAN: Plan #Mechanical fall -Pt reports she was in the bathroom and got up and tripped while using her walker - Does have pain in bilateral knees however patient was scanned no acute process - Supportive care - PT/OT - Case management consult -06/21: Awaiting PT/OT evaluation, family interested in assisted living, will see if patient may need any kind of SNF prior to discharge home pending PT evaluation, case management consulted for tomorrow # Abnormal UA in the setting of self-catheterization - UA with nitrates and leuk esterase and bacteria, this is suggestive of UTI and given her elevated white blood cell count feel it is reasonable to treat empirically while awaiting urine culture - Continue Rocephin - Will have Lizarraga placed while inpatient -06/21: Awaiting urine culture data, continue empiric Rocephin at this time Chronic medical problems and/or problems not being actively addressed during today's encounter: #right ovarian nodule -CT w/ Partially calcified, enhancing right ovarian nodule, which is indeterminate in etiology and may represent benign or malignant pathology -Correlation with nonemergent, routine pelvic ultrasound recommended for further evaluation #Hypothyroidism -Continue Synthroid #Depression/anxiety -Continue home medications #Dementia -Supportive care -Continue home medications #DVT ppx: Patient chronically on Eliquis Cindy Molina MD Time spent in the patient's overall evaluation,decision-making process, review of diagnostic data, adjustment of management, discussion with other providers, nursing nursing and ancillary staff involved in patient's care documentation, 36 Minutes Charges/Coding Visit Charges Inpatient E&M: 67869 Subs Hosp L2
[2025-06-21 14:09] VITALS: BP 128/108; PULSE 78; RESP 17; TEMP 36.9; O2SAT 98
[2025-06-21 20:50] VITALS: BP 166/64; PULSE 88; RESP 16; TEMP 36.9; O2SAT 97
[2025-06-22 04:57] VITALS: BP 129/48; PULSE 65; RESP 16; TEMP 36.6; O2SAT 95
[2025-06-22 07:34] LABS: Hematocrit 32.5 % (37-47); Hemoglobin 11.3 g/dL (12.0-15.0); Mean Corp Hgb Conc 34.8 g/dL (32-36); Mean Corpuscular Volume 85.5 fL (81-99); Mean Platelet Vol. 10.3 fl (6.2-12.0); Platelet Count 181 K/mm3 (150-450); RBC Distribution Width CV 13.4 % (11.6-14.6); RBC Distribution Width SD 42.1 fl (35.1-43.9); Red Blood Count 3.80 M/mm3 (4.2-5.4); White Blood Count 9.4 K/mm3 (4.4-11.0)
[2025-06-22 08:03] LABS: Anion Gap 12 (5-15); BUN 16 mg/dL (4-19); BUN/Creat Ratio 22.3 RATIO (10-20); Calcium,Total 8.5 mg/dL (7.6-11.0); Carbon Dioxide 22.8 mmol/L (21.0-32.0); Chloride 103 mmol/L (98-108); Estimated Creatinine Clearance 37.60 ml/min (50-250); Glucose 94 mg/dL (70-99); Potassium 3.4 mmol/L (3.3-5.1)
[2025-06-22 09:36] VITALS: BP 128/48; PULSE 69; RESP 18; TEMP 36.6; O2SAT 96
[2025-06-22] MEDS: Senna/Docusate Sodium 1 Tablet 2 TABLET PO (09:38)
[2025-06-22] MEDS: APIXABAN 5 MG TABLET PO ×2 (09:38→21:20)
[2025-06-22] MEDS: 0.9% Saline Lock 10 ML Syringe IV (09:42)
--- NOTE | 2025-06-22 11:00 | CASEMGMT ---
Discharge Planning A list of?SNF providers including quality and resource use data and consistent with the patient's preferred geographic region, medical needs, and insurance network was created in CarePort Guide.? This list was provided to the SW. Kandace Martínez Discharge Planning Asst.
--- NOTE | 2025-06-22 13:40 | CASEMGMT ---
Addendum entered by Areli Stephens 06/22/25 17:06: SW met with pt dtr Maribeth and Maribeth's Jose Rafael. Maribeth reports that she has been working with Yuko at [facility] on AL placement. Pt currently has aide services through [facility]. Maribeth reports that pt has Alzheimer disease and has previously been at [facility] for rehab then d/c to [facility] for private pay 30 days prior to return home. Maribeth would be interested in TCU again and will review the list for additional choices. SW referred to TCU. SW remains available to follow. AMINA Draper Original Note: Social Work- SW met with pt to discuss d/c plans. Pt reports that she recently sold her home in [place] and moved to the area. Pt reports that she lives in an apartment complex called [facility] in [place]. Pt was tearful and began crying reporting that she shouldn't have sold her home and doesn't want to be a burden on her family. Pt repeatedly verbalized that she wants her dtr to think positively of her and that she's made a lot of mistakes and hurt people that I didn't want to hurt. SW empathetically and actively listened; providing support and also encouraging reflection and reframing to stay future-focused. Pt shared the same stories repeatedly. Pt reports that she had c recently and also has services in her [address], but was unable to recall who provides services. Pt reports that she doesn't drive any longer, but was independent prior to moving to the area. Pt reports that she has a mecial alert, but did not have it on at time of fall and was on the ground 4 hrs. Pt reports that she doesn't know why she straight caths, but has been doing it 5 years. Pt reports that she was not incontinent and did not retain fluid and is confused as to why she continues to need to cath self. 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 A list of SNF providers including quality and resource use data and consistent with the patient?s preferred geographic region, medical needs, and insurance network were provided from the CarePort Guide. SW offered to email dtr the list as well; pt refused. Pt reporting she doesn't know of anywhere in the area. SW encouraged pt to speak with dtr to make selections. JANNA will follow for three choices. AMINA Draper
--- NOTE | 2025-06-22 15:16 | CHAPLAIN ---
Type of Pastoral Visit _x__ Initial Visit ___ Follow-up Visit ___ On-call Visit ___ General Patient Visit ___ Spiritual Assessment ___ Family Conference ___ Bereavement ___ Rapid Response ___ Code Blue ___ Other (describe below) Pastoral Care Referral From _x__ Patient ___ Family ___ Nurse ___ Physician ___ Rocket Motor Mechanic ___ Chuck Boner ___ Other (describe below) Sacrament/Intervention _x__ Active listening ___ Anointing ___ Mosque ___ Bereavement ___ Communion _x__ Karissa exploration ___ _x__ Life review _x__ Prayer ___ Reconciliation ___ Sacrament of Sick _x__ Supportive presence ___ Wedding ___ Other (describe below) Pastoral Comments patient and this wood drilling machine operator have met before in previous admissions and both acknowledge that; pt reviews her fall and waiting for help for hours; pt is quick to express thankfulness that her fall did not cause breaks; pt is also able to articulate her anxiety about her future; 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
[2025-06-22 15:30] VITALS: BP 141/57; PULSE 72; RESP 16; TEMP 36.6; O2SAT 97
--- NOTE | 2025-06-22 18:46 | PN.HOSP_ITS ---
Reason for Visit Chief Complaint: Knee pain after fall Subjective Subjective The patient was seen and examined today, she exhibits moderate confusion during my visit. Social work states that the patient's family wants the patient to go to a fdc facility. Objective Data Objective Data Vital Signs: Vital Signs Temp Pulse Resp BP Pulse Ox O2 Del Method 98 F 72 16 141/57 H 97 Room Air 06/22/25 15:30 06/22/25 15:30 06/22/25 15:30 06/22/25 15:30 06/22/25 15:30 06/22/25 17:00 Oxygen Delivery Method Room Air Weight: 53.24 kg Body Mass Index (BMI) 22.9 Intake & Output: Intake and Output for Last 24 Hours 06/20/25 06/21/25 06/22/25 23:59 23:59 23:59 Intake Total 50 / 250 1310.00 / 1610.00 1300 / 1300 Output Total 200 / 375 800 / 1200 550 / 550 Balance -150 / -125 510.00 / 410.00 750 / 750 Medical Nutrition Assessment Dietitian: Malnutrition Criteria Met Start: 06/21/25 17:16 Freq: Status: Active Protocol: Document 06/21/25 17:16 RMA (Rec: 06/21/25 17:16 RMA [id number]) Nutrition Malnutrition Evidence of Yes Malnutrition Exists Malnutrition (severe Chronic ): Evidenced By Suboptimal Energy Intake (Severe),Weight Loss (Severe) Clinical Problem Chronic Disease or Condition Related Malnutrition Etiology Severe protein-calorie malnutrition in the context of chronic disease related to inadequate energy/oral intake Signs/Symptoms as evidenced by ~10-11% unintentional weight loss x less than 6 months and PO meeting less than 75% estimated nutrition needs x 6 months Status Active Problem Recommendation Dietitian Continue liberalized regular diet. Recommendations/ Will add 240mL ensure plus HP with breakfast tray and Changes magic cup with lunch/dinner trays. Trend weights as available. Additional ONS as needed. Lab / Micro Data 06/22/25 07:05 06/22/25 07:05 Labs: Laboratory Results - last 24 hr 06/22/25 07:05: WBC 9.4, RBC 3.80 L, Hgb 11.3 L, Hct 32.5 L, MCV 85.5, MCH 29.7, MCHC 34.8, RDW Std Deviation 42.1, RDW Coeff of Leslie 13.4, Plt Count 181, MPV 10.3, Sodium 137, Potassium 3.4, Chloride 103, Carbon Dioxide 22.8, Anion Gap 12, BUN 16, Creatinine 0.72, Estim Creat Clear Calc 37.60 L, Est GFR (MDRD) Non- Af 82, BUN/Creatinine Ratio 22.3 H, Glucose 94, Calcium 8.5 Micro: Microbiology 06/20/25 11:01 Urine Catheter - Catheter Urine Culture - Final Escherichia coli Physical Exam Const alert and no apparent distress Constitutional Narrative: Patient is moderately confused General Appearance: cooperative, well kempt and well developed Orientation / Consciousness: awake and oriented to person HEENT normocephalic, head/scalp atraumatic and moist oral mucous membranes Eyes PERRL, EOMs intact bilaterally and conjunctivae normal Neck supple, no JVD, thyroid normal and no carotid bruits General: trachea midline Resp normal respiratory effort, no retractions, no use of accessory muscles and clear to auscultation bilaterally Auscultation: Negative for rales, rhonchi or wheezes Cardio regular rate, regular rhythm, S1 normal heart sound, S2 normal heart sound, no murmurs, no rub and no gallops GI normal to inspection, nondistended, normoactive bowel sounds, soft to palpation, non-tender and non-distended Extremity no clubbing, cyanosis or edema Skin no rashes or lesions noted General Skin Exam: no breakdown Neuro CN's II-XII intact bilaterally and moves all extremities Neuro Narrative: Patient is moderately confused Sensorium / Orientation: awake and alert Speech: speech normal Psych Psych Narrative: Patient is moderately confused Assessment & Plan Assessment/Plan (1) Generalized weakness: PLAN: Plan 1. Generalized weakness-patient is being seen by PT and OT, she will need placement in a fdc facility #2 acute cystitis with E. coli-patient's white blood cell count was elevated on admission, I have decided to keep the patient on antibiotics, I will transition the patient over to oral antibiotics from Rocephin #3 dementia-complicates care, management, recovery, and prognosis #4 chronic use of anticoagulants #5 recent lower extremity venous thromboembolism-according to documented medical record, patient was supposed to be on Eliquis 5 mg twice daily through 06/08/2025, I will order lower extremity venous duplex scans to verify she does not have a VTE Total clinical time spent by myself addressing the patient's medical issues, reviewing all of her data, and collaborating with patient's care team: 35 minutes Charges/Coding Visit Charges Inpatient E&M: 07641 Subs Hosp L2
[2025-06-22 21:18] VITALS: BP 148/64; PULSE 97; RESP 15; TEMP 36.8; O2SAT 96
[2025-06-23 00:05] VITALS: BP 131/82; PULSE 66; RESP 16; TEMP 36.6; O2SAT 99
[2025-06-23 05:45] VITALS: BP 144/59; PULSE 76; RESP 15; TEMP 36.8; O2SAT 97
[2025-06-23 09:49] VITALS: BP 142/57; PULSE 75; RESP 18; TEMP 36.4; O2SAT 99
[2025-06-23] MEDS: APIXABAN 5 MG TABLET PO ×2 (09:54→21:39)
[2025-06-23] MEDS: Senna/Docusate Sodium 1 Tablet 2 TABLET PO (09:54)
--- NOTE | 2025-06-23 13:51 | CASEMGMT ---
Addendum entered by Areli Stephens 06/23/25 15:59: Pt dtr updated SW that choices are [facility] and [facility]. [facility] updated of request. Both [facility] and [facility] accepted. SW followed up with pt dtr. Pt dtr selects [facility] due to interest in AL for long-term plan. SW notified [facility]. SW remains available to follow. Plan: [facility]; pending precert AMINA Draper Original Note: Social Work- SW followed up with pt dtr for choices vis telephone. Pt dtr reports that she and her spouse looked at list, but wanted to review selections with pt and offered to update SW by 3:30PM. SW remains agreeable to follow. AMINA Draper
[2025-06-23 14:44] VITALS: BP 158/59; PULSE 73; RESP 18; TEMP 36.4; O2SAT 100
--- NOTE | 2025-06-23 15:11 | PCM.PN.HOSP ---
Reason for Visit Chief Complaint: Knee pain after fall Subjective Subjective Patient was seen and examined today, we are awaiting the patient's POA to select a residential facility for the patient to be transferred to, we will need pre-CERT also. Objective Data Objective Data Vital Signs: Vital Signs Temp Pulse Resp BP Pulse Ox O2 Del Method 97.5 F L 73 18 158/59 H 100 Room Air 06/23/25 14:44 06/23/25 14:44 06/23/25 14:44 06/23/25 14:44 06/23/25 14:44 06/23/25 14:44 Oxygen Delivery Method Room Air Weight: 53.24 kg Body Mass Index (BMI) 22.9 Intake & Output: Intake and Output for Last 24 Hours 06/21/25 06/22/25 06/23/25 23:59 23:59 23:59 Intake Total 1310.00 / 1610.00 1900 / 1900 500 / 500 Output Total 800 / 1200 1100 / 1100 600 / 600 Balance 510.00 / 410.00 800 / 800 -100 / -100 Medical Nutrition Assessment Dietitian: Malnutrition Criteria Met Start: 06/21/25 17:16 Freq: Status: Active Protocol: Document 06/21/25 17:16 RMA (Rec: 06/21/25 17:16 RMA [id number]) Nutrition Malnutrition Evidence of Yes Malnutrition Exists Malnutrition (severe Chronic ): Evidenced By Suboptimal Energy Intake (Severe),Weight Loss (Severe) Clinical Problem Chronic Disease or Condition Related Malnutrition Etiology Severe protein-calorie malnutrition in the context of chronic disease related to inadequate energy/oral intake Signs/Symptoms as evidenced by ~10-11% unintentional weight loss x less than 6 months and PO meeting less than 75% estimated nutrition needs x 6 months Status Active Problem Recommendation Dietitian Continue liberalized regular diet. Recommendations/ Will add 240mL ensure plus HP with breakfast tray and Changes magic cup with lunch/dinner trays. Trend weights as available. Additional ONS as needed. Lab / Micro Data 06/22/25 07:05 06/22/25 07:05 Micro: Microbiology 06/20/25 11:01 Urine Catheter - Catheter Urine Culture - Final Escherichia coli Physical Exam Narrative alert and no apparent distress Constitutional Narrative: Patient is moderately confused General Appearance: cooperative, well kempt and well developed Orientation / Consciousness: awake and oriented to person HEENT normocephalic, head/scalp atraumatic and moist oral mucous membranes Eyes PERRL, EOMs intact bilaterally and conjunctivae normal Neck supple, no JVD, thyroid normal and no carotid bruits General: trachea midline Resp normal respiratory effort, no retractions, no use of accessory muscles and clear to auscultation bilaterally Auscultation: Negative for rales, rhonchi or wheezes Cardio regular rate, regular rhythm, S1 normal heart sound, S2 normal heart sound, no murmurs, no rub and no gallops GI normal to inspection, nondistended, normoactive bowel sounds, soft to palpation, non-tender and non-distended Extremity no clubbing, cyanosis or edema Skin no rashes or lesions noted General Skin Exam: no breakdown Neuro CN's II-XII intact bilaterally and moves all extremities Neuro Narrative: Patient is moderately confused Sensorium / Orientation: awake and alert Speech: speech normal Psych Psych Narrative: Patient is moderately confused Assessment & Plan Assessment/Plan (1) Generalized weakness: PLAN: Plan 1. Generalized weakness-patient is being seen by PT and OT, she will need placement in a residential facility #2 acute cystitis with E. coli-patient's white blood cell count was elevated on admission, I have decided to keep the patient on antibiotics, I will transition the patient over to oral antibiotics from Rocephin #3 dementia-complicates care, management, recovery, and prognosis #4 chronic use of anticoagulants #5 recent lower extremity venous thromboembolism-according to documented medical record, patient was supposed to be on Eliquis 5 mg twice daily through 06/08/2025, I will order lower extremity venous duplex scans to verify she does not have a VTE #6 chronic severe protein and caloric malnutrition in the context of chronic disease related to inadequate energy/oral intake as evidenced by approximately 10 to 11% unintentional weight loss times less than 6 months and p.o. meeting less than 75% of estimated nutritional needs x 6 months-Ensure Plus HP 240 mL was added with breakfast tray and Magic cup with lunch and dinner trays. Continue with liberalized regular diet. Total clinical time spent by myself addressing the patient's medical issues, reviewing all of her data, and collaborating with patient's care team: 35 minutes Charges/Coding Visit Charges Inpatient E&M: 13325 Subs Hosp L2
--- NOTE | 2025-06-23 15:14 | VDLE_ITS ---
Reason For Study Reason For Study: Bilateral leg swelling RIGHT LEFT GSV is normal. GSV is normal. CFV is compressible, spontaneous, phasic, competent CFV is compressible, spontaneous, phasic, competent, and demonstrates normal augmentation. and demonstrates normal augmentation. FV is compressible, spontaneous, phasic, competent FV is compressible, spontaneous, phasic, competent and demonstrates normal augmentation. and demonstrates normal augmentation. POP V is compressible, spontaneous, phasic, competent POP V is compressible, spontaneous, phasic, competent and demonstrates normal augmentation. and demonstrates normal augmentation. T/P Trunk is compressible. T/P Trunk is compressible. PTV is compressible. PTV is compressible. RT PerV is compressible. LT PerV is compressible. Procedure This is a venous duplex using B-mode, color flow and spectral Doppler. Exam performed portable in patient room. A preliminary report was called and/or faxed to [facility]. VL/Venous Duplex US - Kyle Extrem Interpretation Summary Deep veins of the bilateral lower extremities are patent and compressible segme ntally. There is no evidence of bilateral lower extremity deep vein thrombosis. The bilateral great saphenous veins appea r patent and compressible segmentally. Ordering Physician: Bill Vieira Referring Physician: Anaid Luna Performed By: Darling Galicia RVT
--- NOTE | 2025-06-23 15:20 | CASEMGMT ---
Addendum entered by Kandace Martínez 06/23/25 16:01: Both have accepted. [facility] is foc and asked to submit for precert. [facility] asked to cancel referral. Kandace Martínez DC Planning Asst. Original Note: Discharge Planning SNF referral sent to [facility] and [facility]. Kandace Martínez DC Planning Asst.
[2025-06-23 21:38] VITALS: BP 152/70; PULSE 61; RESP 16; TEMP 36.3; O2SAT 99
[2025-06-24 05:53] VITALS: BP 135/51; PULSE 68; RESP 15; TEMP 36.5; O2SAT 98
[2025-06-24 08:02] VITALS: BP 146/52; PULSE 63; RESP 18; TEMP 36.6; O2SAT 99
[2025-06-24] MEDS: Senna/Docusate Sodium 1 Tablet 2 TABLET PO ×2 (08:04→22:30)
[2025-06-24] MEDS: APIXABAN 5 MG TABLET PO ×2 (08:04→22:31)
--- NOTE | 2025-06-24 11:51 | CASEMGMT ---
Social Work- SW met with pt to provide support and check-in. SW updated that precert remains pending. Pt repeating same stories and remains tearful about mistakes and life choices. SW continues to offer support and redirection. Plan: [facility]; pend precert AMINA Draper
[2025-06-24 14:46] VITALS: BP 142/86; PULSE 77; RESP 16; TEMP 36.6; O2SAT 92
--- NOTE | 2025-06-24 15:55 | CASEMGMT ---
Addendum entered by Kandace Martínez 06/25/25 10:26: Pt has been denied skilled snf stay. SW updated. Kandace Martínez DC Planning Asst. Original Note: Discharge Planning [facility] updated that physician will do P2P in the morning. Kandace Martínez DC Planning Asst.
--- NOTE | 2025-06-24 16:01 | CASEMGMT ---
Social Work- SW received notice of offer of [id number]. [facility] MD is offering the treating practitioner an option to speak with a Electronic Imager before final determination. Provider to call: Option 5. Deadline is: 06/25/25 10:00 AM EDT If no response, MD will render determination. Reference number: [id number] SW notified physician and forwarded information. Hospitalist initially declined to complete [id number]. SW called pt dtr to update. Pt dtr reports that she cannot afford private pay SNF and has a budget of $5k/mon. Dtr reports that pt cannot apply for [facility] at this time due to look-back period of selling house. Dtr reports that sister would need to pay back money from the sale and cannot. Pt dtr reports that she is undergoing cancer treatments while caring for 3 children, two of whom are nonverbal autistic and she cannot bring pt into home to care for her and believes that d/c home with resumption of aide service is not a safe d/c plan. Dtr reports that she has been working with [facility] for admittance to [facility] following SNF stay. Dtr asks SW to see if [facility] Meneses can do an assessment of pt for direct admit. JANNA called Jazmyn at [facility] who does not feel based on pt PT/OT that she is appropriate for Al and needs additional therapy. SW notified hospitalist of recommendation by AL; hospitalist agreeable to [id number] and will complete in the morning per . JANNA updated Jazmyn at [facility]. Jazmyn reports that Lorena from [facility] can complete an onsite tomorrow if denial is upheld. JANNA called pt dtr, Maribeth, to provide updates. Maribeth appreciative of assistance and advocacy of hospitalist and staff. JANNA remains available to follow. AMINA Draper
--- NOTE | 2025-06-24 17:33 | PCM.PN.HOSP ---
Reason for Visit Chief Complaint: Knee pain after fall Subjective Subjective Patient was seen and examined today, according to nursing she complained of hemorrhoidal pain, I placed her on triamcinolone cream to the rectal area twice daily. I received word that we received denial from the patient's insurer regarding the patient going to a skilled care facility, I will be talking with her insurance company tomorrow to see if there is any chance they will change their mind. Objective Data Objective Data Vital Signs: Vital Signs Temp Pulse Resp BP Pulse Ox O2 Del Method 97.8 F 77 16 142/86 H 92 Room Air 06/24/25 14:46 06/24/25 14:46 06/24/25 14:46 06/24/25 14:46 06/24/25 14:46 06/24/25 14:46 Oxygen Delivery Method Room Air Weight: 53.24 kg Body Mass Index (BMI) 22.9 Intake & Output: Intake and Output for Last 24 Hours 06/22/25 06/23/25 06/24/25 23:59 23:59 23:59 Intake Total 1900 / 1900 1000 / 1000 240 / 240 Output Total 1100 / 1100 1480 / 1480 675 / 675 Balance 800 / 800 -480 / -480 -435 / -435 Medical Nutrition Assessment Dietitian: Malnutrition Criteria Met Start: 06/21/25 17:16 Freq: Status: Active Protocol: Document 06/24/25 16:42 RMA (Rec: 06/24/25 16:42 RMA [id number]) Nutrition Malnutrition Evidence of Yes Malnutrition Exists Malnutrition (severe Chronic ): Evidenced By Suboptimal Energy Intake (Severe),Weight Loss (Severe) Clinical Problem Chronic Disease or Condition Related Malnutrition Etiology Severe protein-calorie malnutrition in the context of chronic disease related to inadequate energy/oral intake Signs/Symptoms as evidenced by ~10-11% unintentional weight loss x less than 6 months and PO meeting less than 75% estimated nutrition needs x 6 months Status Active Problem Recommendation Dietitian Continue liberalized regular diet with 240mL ensure Recommendations/ plus HP with breakfast tray and magic cup with lunch/ Changes dinner trays. Current weight as able especially given signs/symptoms of malnutrition. Additional ONS as needed. Lab / Micro Data 06/22/25 07:05 06/22/25 07:05 Micro: Microbiology 06/20/25 11:01 Urine Catheter - Catheter Urine Culture - Final Escherichia coli Radiography Diagnostic Testing: Radiology Impression Venous Doppler Study 06/23/25 15:14 Interpretation Summary Deep veins of the bilateral lower extremities are patent and compressible segmentally. There is no evidence of bilateral lower extremity deep vein thrombosis. The bilateral great saphenous veins appear patent and compressible segmentally. Ordering Physician: Bill Vieira Referring Physician: Anaid Luna Performed By: Darling Galicia RVT Physical Exam Narrative alert and no apparent distress Constitutional Narrative: Patient is moderately confused General Appearance: cooperative, well kempt and well developed Orientation / Consciousness: awake and oriented to person HEENT normocephalic, head/scalp atraumatic and moist oral mucous membranes Eyes PERRL, EOMs intact bilaterally and conjunctivae normal Neck supple, no JVD, thyroid normal and no carotid bruits General: trachea midline Resp normal respiratory effort, no retractions, no use of accessory muscles and clear to auscultation bilaterally Auscultation: Negative for rales, rhonchi or wheezes Cardio regular rate, regular rhythm, S1 normal heart sound, S2 normal heart sound, no murmurs, no rub and no gallops GI normal to inspection, nondistended, normoactive bowel sounds, soft to palpation, non-tender and non-distended Extremity no clubbing, cyanosis or edema Skin no rashes or lesions noted General Skin Exam: no breakdown Neuro CN's II-XII intact bilaterally and moves all extremities Neuro Narrative: Patient is moderately confused Sensorium / Orientation: awake and alert Speech: speech normal Psych Psych Narrative: Patient is moderately confused Assessment & Plan Assessment/Plan (1) Generalized weakness: PLAN: Plan 1. Generalized weakness-patient is being seen by PT and OT, again I will be contacting her insurer regarding an appeal on their decision not to pay for skilled care. #2 acute cystitis with E. coli-patient's white blood cell count was elevated on admission, I have decided to keep the patient on antibiotics-patient is currently on Keflex #3 dementia-complicates care, management, recovery, and prognosis #4 chronic use of anticoagulants-patient's duplex of her lower extremities did not show evidence of DVT, I have decided to stop the patient's Eliquis. #5 recent lower extremity venous thromboembolism-resolved, patient's Eliquis will be stopped #6 chronic severe protein and caloric malnutrition in the context of chronic disease related to inadequate energy/oral intake as evidenced by approximately 10 to 11% unintentional weight loss times less than 6 months and p.o. meeting less than 75% of estimated nutritional needs x 6 months-Ensure Plus HP 240 mL was added with breakfast tray and Magic cup with lunch and dinner trays. Continue with liberalized regular diet. Total clinical time spent by myself addressing the patient's medical issues, reviewing all of her data, and collaborating with patient's care team: 35 minutes Charges/Coding Visit Charges Inpatient E&M: 09958 Subs Hosp L2
[2025-06-24 22:29] VITALS: BP 159/64; PULSE 66; RESP 16; TEMP 36.7; O2SAT 97
[2025-06-25 04:00] VITALS: BP 130/56; PULSE 56; RESP 16; TEMP 36.4; O2SAT 98
[2025-06-25 10:00] VITALS: BP 130/60; PULSE 72; RESP 16; TEMP 36.4; O2SAT 100
[2025-06-25] MEDS: Cholecalciferol (Vit D3) 125 MCG CAPSULE (5,000 UNITS) PO (10:12)
[2025-06-25] MEDS: APIXABAN 5 MG TABLET PO (10:13)
[2025-06-25] MEDS: Senna/Docusate Sodium 1 Tablet 2 TABLET PO (10:13)
--- NOTE | 2025-06-25 10:26 | CASEMGMT ---
Addendum entered by Areli Stephens 06/25/25 14:28: JANNA collaborated with Lorena at [facility]tw[facility] Meneses following AL assessment. Lorena to report findings to center medical director. Lorena also to follow-up with pt dtr. JANNA remains available to follow. AMINA Draper Addendum entered by Areli Stephens 06/25/25 14:22: JANNA called pt dtr to update that insurance denial upheld. AL to assess in person for appropriateness with SW to follow up with dtr following assessment. JANNA provided education on discharge timeline and discussed options for care depending on determination of AL assessment. JANNA remains available to follow. AMINA Draper Original Note: Social Work- JANNA received notice that peer to peer completed and denial upheld. [facility]twan Meneses intake will come assess for AL this morning. SNF updated. [facility] notified. JANNA remains available to follow. AMINA Draper
--- NOTE | 2025-06-25 13:21 | PCM.PN.HOSP ---
Reason for Visit Chief Complaint: Knee pain after fall Subjective Subjective Patient was seen and examined today, her insurance carrier declined to approve the patient for skilled care placement, assisted living came into talk to the patient's today and will make a decision on whether they feel the patient is appropriate for assisted living. Objective Data Objective Data Vital Signs: Vital Signs Temp Pulse Resp BP Pulse Ox O2 Del Method 97.5 F L 72 16 130/60 H 100 Room Air 06/25/25 10:00 06/25/25 10:00 06/25/25 10:00 06/25/25 10:00 06/25/25 10:00 06/25/25 10:00 Oxygen Delivery Method Room Air Weight: 53.24 kg Body Mass Index (BMI) 22.9 Intake & Output: Intake and Output for Last 24 Hours 06/23/25 06/24/25 06/25/25 23:59 23:59 23:59 Intake Total 1000 / 1000 480 / 480 Output Total 1480 / 1480 1175 / 1175 350 / 350 Balance -480 / -480 -695 / -695 -350 / -350 Medical Nutrition Assessment Dietitian: Malnutrition Criteria Met Start: 06/21/25 17:16 Freq: Status: Active Protocol: Document 06/24/25 16:42 RMA (Rec: 06/24/25 16:42 RMA [id number]) Nutrition Malnutrition Evidence of Yes Malnutrition Exists Malnutrition (severe Chronic ): Evidenced By Suboptimal Energy Intake (Severe),Weight Loss (Severe) Clinical Problem Chronic Disease or Condition Related Malnutrition Etiology Severe protein-calorie malnutrition in the context of chronic disease related to inadequate energy/oral intake Signs/Symptoms as evidenced by ~10-11% unintentional weight loss x less than 6 months and PO meeting less than 75% estimated nutrition needs x 6 months Status Active Problem Recommendation Dietitian Continue liberalized regular diet with 240mL ensure Recommendations/ plus HP with breakfast tray and magic cup with lunch/ Changes dinner trays. Current weight as able especially given signs/symptoms of malnutrition. Additional ONS as needed. Lab / Micro Data 06/22/25 07:05 06/22/25 07:05 Micro: Microbiology 06/20/25 11:01 Urine Catheter - Catheter Urine Culture - Final Escherichia coli Physical Exam Narrative alert and no apparent distress Constitutional Narrative: Patient is moderately confused General Appearance: cooperative, well kempt and well developed Orientation / Consciousness: awake and oriented to person HEENT normocephalic, head/scalp atraumatic and moist oral mucous membranes Eyes PERRL, EOMs intact bilaterally and conjunctivae normal Neck supple, no JVD, thyroid normal and no carotid bruits General: trachea midline Resp normal respiratory effort, no retractions, no use of accessory muscles and clear to auscultation bilaterally Auscultation: Negative for rales, rhonchi or wheezes Cardio regular rate, regular rhythm, S1 normal heart sound, S2 normal heart sound, no murmurs, no rub and no gallops GI normal to inspection, nondistended, normoactive bowel sounds, soft to palpation, non-tender and non-distended Extremity no clubbing, cyanosis or edema Skin no rashes or lesions noted General Skin Exam: no breakdown Neuro CN's II-XII intact bilaterally and moves all extremities Neuro Narrative: Patient is moderately confused Sensorium / Orientation: awake and alert Speech: speech normal Psych Psych Narrative: Patient is moderately confused Assessment & Plan Assessment/Plan (1) Generalized weakness: PLAN: Plan 1. Generalized weakness-patient is being seen by PT and OT, I did a peer to peer today with the patient's insurer, they declined to approve the patient for skilled care based on her present activity level. #2 acute cystitis with E. coli-patient's white blood cell count was elevated on admission, I have decided to keep the patient on antibiotics-patient is currently on Keflex #3 dementia-complicates care, management, recovery, and prognosis #4 chronic use of anticoagulants-patient's duplex of her lower extremities did not show evidence of DVT, I have decided to stop the patient's Eliquis. #5 recent lower extremity venous thromboembolism-resolved, patient's Eliquis will be stopped #6 chronic severe protein and caloric malnutrition in the context of chronic disease related to inadequate energy/oral intake as evidenced by approximately 10 to 11% unintentional weight loss times less than 6 months and p.o. meeting less than 75% of estimated nutritional needs x 6 months-Ensure Plus HP 240 mL was added with breakfast tray and Magic cup with lunch and dinner trays. Continue with liberalized regular diet. Total clinical time spent by myself addressing the patient's medical issues, reviewing all of her data, and collaborating with patient's care team: 35 minutes Charges/Coding Visit Charges Inpatient E&M: 79695 Subs Hosp L2
--- NOTE | 2025-06-25 14:15 | CASEMGMT ---
Social Work- JANNA spoke with Lorena who reports that AL does not feel pt is appropriate at this time. Lorena reports that she spoke with dtr Maribeth who agrees to 2 weeks of private pay room and board with therapy under part B benefit at which time staff will re-eval for appropriateness of AL vs LTC SNF. Maribeth reports that she has an appointment with an elder law speech language assistant on the to discuss look-back period. JANNA called and left a message with Maribeth to update that pt will discharge today as previously indicated. JANNA updated hospitalist on discharge plans. JANNA remains available to follow. Plan: [facility]; skilled level of care, private pay AMINA Draper
--- NOTE | 2025-06-25 14:47 | PCM.TXEXTCAR ---
Diet Diet Order/Speech Therapy: INPATIENT Hospital Diet / Speech Therapy Order(s) 06/20/25 15:47 Diet: Regular - General Food consistency:: Regular Liquid Consistency:: Regular/Thin Type of Dietary Supplement:: Magic Cup w/ L & D Diet Comments: 240mL ensure plus HP w/ breakfast Routine Orders/Code Status Code Status: Full Code DC O2, CPAP, BIPAP needs Home O2 Discharge instructions: No Wound(s) buttocks: Wound Type: Pressure Injury L knee: Wound Type: Abrasion Therapies Weight Bearing: Full weight bearing (With walker) Physical Therapy: Eval and Treat Occupational Therapy: Eval and Treat Problem/Diagnosis (1) Generalized weakness: Status: Acute Code(s): R53.1 - Weakness Plan 1. Generalized weakness-patient is being seen by PT and OT, I did a peer to peer today with the patient's insurer, they declined to approve the patient for skilled care based on her present activity level. #2 acute cystitis with E. coli-patient's white blood cell count was elevated on admission, I have decided to keep the patient on antibiotics-patient is currently on Keflex #3 dementia-complicates care, management, recovery, and prognosis #4 chronic use of anticoagulants-patient's duplex of her lower extremities did not show evidence of DVT, I have decided to stop the patient's Eliquis. #5 recent lower extremity venous thromboembolism-resolved, patient's Eliquis will be stopped #6 chronic severe protein and caloric malnutrition in the context of chronic disease related to inadequate energy/oral intake as evidenced by approximately 10 to 11% unintentional weight loss times less than 6 months and p.o. meeting less than 75% of estimated nutritional needs x 6 months-Ensure Plus HP 240 mL was added with breakfast tray and Magic cup with lunch and dinner trays. Continue with liberalized regular diet. Total clinical time spent by myself addressing the patient's medical issues, reviewing all of her data, and collaborating with patient's care team: 35 minutes Allergies/Procedures Done in Hospital Allergies No Known Allergies Allergy (Verified 06/20/25 08:35) Procedures: None Type of Care/Length of Stay Estimated LOS: Convalescent Care Less Than 30 days Type of Care Needed: Skilled Rehab Potential: Good Prognosis: Good Additional Orders/Day of Discharge H&P will serve as current which was dated: 06/20/25 Day of Discharge: 06/25/25 Dietary and Speech Recommendations Dietitian Recommendations/Changes: Continue liberalized regular diet with 240mL ensure plus HP with breakfast tray and magic cup with lunch/dinner trays. Current weight as able especially given signs/symptoms of malnutrition. Additional ONS as needed. Discharge Plan Admission Admit Date/Time: 06/20/25 14:26 Primary Reason for Your Visit: Generalized weakness, urinary tract infection Attending Provider: Bill Vieira Primary Care Provider: Anaid Luna Consulting Providers: Cindy Molina Discharge Orders/Prescriptions Prescriptions: New acetaminophen 500 mg Tablet 1,000 mg PO Q8 Qty: 0 0RF clonazepam 0.5 mg Tablet 0.5 mg PO Q8H PRN (Reason: anxiety) Qty: 6 0RF menthol-zinc oxide [Calmoseptine] 0.44-20.6 % Ointment 1 applic topical BID Qty: 0 0RF Protocol: *Topical Application Instructions APPLICATION INSTRUCTIONS: apply to buttocks sennosides-docusate sodium [Stimulant Laxative Plus] 8.6-50 mg Tablet 2 tab PO BID Qty: 0 0RF triamcinolone acetonide 0.1 % Cream 1 applic topical BID Qty: 15 0RF Protocol: *Topical Application Instructions APPLICATION INSTRUCTIONS: Call twice daily to rectal area Rx Instructions: Apply twice a day to rectal area as needed hemorrhoidal pain Continued buspirone 5 mg tablet 5 mg PO BID cholecalciferol (vitamin D3) 125 mcg (5,000 unit) capsule 125 mcg PO DAILY trazodone 50 mg tablet 50 mg PO QHS donepezil 10 mg tablet 10 mg PO DAILY levothyroxine 50 mcg tablet 50 mcg PO DAILY escitalopram oxalate 20 mg tablet 20 mg PO DAILY Patient Comments: PT TAKES AT BEDTIME. ascorbic acid (vitamin C) [C-500] 500 mg tablet 500 mg PO DAILY Discontinued acetaminophen 500 mg Tablet 1,000 mg PO Q8 Qty: 0 0RF sennosides-docusate sodium [Stimulant Laxative Plus] 8.6-50 mg Tablet 1 tab PO BID Qty: 0 0RF Eliquis 5 mg Tablet 5 mg PO BID Qty: 0 0RF clonazepam 0.5 mg tablet 0.5 mg PO Q8H PRN (Reason: anxiety) Rx Instructions: family states pt takes 1/2 tab am and 1 tab pm pretty routinely Referrals / Follow Up: Anaid Luna MD [Primary Care Provider] - Disposition Disposition (needs filled in before D/C Order can be placed): Senior Living Facility
--- NOTE | 2025-06-25 15:19 | DS.PCM_ITS ---
Providers Date of Admission: 06/20/25 Date of Discharge: 06/25/25 Primary Care Physician: Dr. Anaid Luna MD Reason For Visit: FALL AND UTI Diagnosis Discharge Diagnosis (1) Generalized weakness: Status: Acute Code(s): R53.1 - Weakness Plan 1. Generalized weakness-patient is being seen by PT and OT, I did a peer to peer today with the patient's insurer, they declined to approve the patient for skilled care based on her present activity level. #2 acute cystitis with E. coli-patient's white blood cell count was elevated on admission, I have decided to keep the patient on antibiotics-patient is currently on Keflex #3 dementia-complicates care, management, recovery, and prognosis #4 chronic use of anticoagulants-patient's duplex of her lower extremities did not show evidence of DVT, I have decided to stop the patient's Eliquis. #5 recent lower extremity venous thromboembolism-resolved, patient's Eliquis will be stopped #6 chronic severe protein and caloric malnutrition in the context of chronic disease related to inadequate energy/oral intake as evidenced by approximately 10 to 11% unintentional weight loss times less than 6 months and p.o. meeting less than 75% of estimated nutritional needs x 6 months-Ensure Plus HP 240 mL was added with breakfast tray and Magic cup with lunch and dinner trays. Continue with liberalized regular diet. Total clinical time spent by myself addressing the patient's medical issues, reviewing all of her data, and collaborating with patient's care team: 35 minutes Medications at Discharge Home Medications ascorbic acid (vitamin C) 500 mg tablet (C-500) 500 mg PO DAILY supplement 03/01/25 donepezil 10 mg tablet 10 mg PO DAILY dementia 03/01/25 escitalopram oxalate 20 mg tablet 20 mg PO DAILY anxiety 03/01/25 levothyroxine 50 mcg tablet 50 mcg PO DAILY thyroid 03/01/25 trazodone 50 mg tablet 50 mg PO QHS anxiety 03/01/25 buspirone 5 mg tablet 5 mg PO BID 06/20/25 cholecalciferol (vitamin D3) 125 mcg (5,000 unit) capsule 125 mcg PO DAILY 06/20/25 acetaminophen 500 mg tablet 1,000 mg (2 x 500 mg) PO Q8 #0 tabs 06/25/25 clonazepam 0.5 mg tablet 0.5 mg PO Q8H PRN anxiety #6 tabs 06/25/25 menthol 0.44 %-zinc oxide 20.6 % topical ointment (Calmoseptine) 1 applic topical BID #0 grams 06/25/25 sennosides 8.6 mg-docusate sodium 50 mg tablet (Stimulant Laxative Plus) 2 tab PO BID #0 tabs 06/25/25 triamcinolone acetonide 0.1 % topical cream 1 applic topical BID #15 grams 06/25/25 Hospital Course Operations None Procedures None Summary of Care Provided Minutes Spent on Discharge: 31 Hospital Course: This 84-year-old white female was seen in the emergency room at [facility] after multiple mechanical fall at home, patient states that she tripped over her walker and was found by home health aide. Patient complained of left hip pain and bilateral knee pain, workup in the emergency room included a CBC which was remarkable for an elevated white blood cell count of 28,000, patient's sodium was 130, total bilirubin was slightly elevated at 2.15, AST and ALT were also elevated. Urinalysis showed positive nitrates 100 mL white cells with +1 bacteria. Imaging studies did not show any evidence of dislocation or fracture there was suspected to be a nonunion of the previously noted anterior trochanteric fracture which had been repaired. On-call orthopedic surgery was contacted and reviewed the films, they felt that the patient's hip x-ray was stable, ER staff attempted to ambulate the patient but she was unable to and therefore she was admitted to the hospital. Patient was admitted to [place] [address] and was seen by PT and OT, she was felt to have a urinary tract infection which had resulted from the patient's need to self catheterize at home, she was treated with IV antibiotics and a Liz[place] was inserted. It was recommended that the patient go to a intermediate facility for skilled rehab services, her insurance however declined to pay for skilled care and the patient's family had to pay [id number] for her to go to a intermediate facility. On 06/25/2025, patient was seen and examined:alert and no apparent distress Constitutional Narrative: Patient is moderately confused General Appearance: cooperative, well kempt and well developed Orientation / Consciousness: awake and oriented to person HEENT normocephalic, head/scalp atraumatic and moist oral mucous membranes Eyes PERRL, EOMs intact bilaterally and conjunctivae normal Neck supple, no JVD, thyroid normal and no carotid bruits General: trachea midline Resp normal respiratory effort, no retractions, no use of accessory muscles and clear to auscultation bilaterally Auscultation: Negative for rales, rhonchi or wheezes Cardio regular rate, regular rhythm, S1 normal heart sound, S2 normal heart sound, no murmurs, no rub and no gallops GI normal to inspection, nondistended, normoactive bowel sounds, soft to palpation, non-tender and non-distended Extremity no clubbing, cyanosis or edema Skin no rashes or lesions noted General Skin Exam: no breakdown Neuro CN's II-XII intact bilaterally and moves all extremities Neuro Narrative: Patient is moderately confused Sensorium / Orientation: awake and alert Speech: speech normal Psych Psych Narrative: Patient is moderately confused Patient was discharged to intermediate facility on 06/25/2025 in stable condition Medical Records Data Medical Nutrition Assessment Dietitian: Malnutrition Criteria Met Start: 06/21/25 17:16 Freq: Status: Active Protocol: Document 06/24/25 16:42 RMA (Rec: 06/24/25 16:42 RMA [id number]) Nutrition Malnutrition Evidence of Yes Malnutrition Exists Malnutrition (severe Chronic ): Evidenced By Suboptimal Energy Intake (Severe),Weight Loss (Severe) Clinical Problem Chronic Disease or Condition Related Malnutrition Etiology Severe protein-calorie malnutrition in the context of chronic disease related to inadequate energy/oral intake Signs/Symptoms as evidenced by ~10-11% unintentional weight loss x less than 6 months and PO meeting less than 75% estimated nutrition needs x 6 months Status Active Problem Recommendation Dietitian Continue liberalized regular diet with 240mL ensure Recommendations/ plus HP with breakfast tray and magic cup with lunch/ Changes dinner trays. Current weight as able especially given signs/symptoms of malnutrition. Additional ONS as needed. Weight / BMI Weight Weight: 53.24 kg Body Mass Index (BMI) 22.9 ABG / Lab / Microbiology Data 06/22/25 07:05 06/22/25 07:05 Microbiology: Microbiology 06/20/25 11:01 Urine Catheter - Catheter Urine Culture - Final Escherichia coli D/C Instructions DC O2, CPAP, BIPAP Needs Home O2 Discharge instructions: No Meaningful Use Info Meaningful Use Meaningful Use Diagnoses (Choose all that apply): None applicable Discharge Plan Admission Admit Date/Time: 06/20/25 14:26 Primary Reason for Your Visit: Generalized weakness, urinary tract infection Attending Provider: Bill Vieira Primary Care Provider: Anaid Luna Consulting Providers: Cindy Molina Discharge Orders/Prescriptions Prescriptions: New acetaminophen 500 mg Tablet 1,000 mg PO Q8 Qty: 0 0RF clonazepam 0.5 mg Tablet 0.5 mg PO Q8H PRN (Reason: anxiety) Qty: 6 0RF menthol-zinc oxide [Calmoseptine] 0.44-20.6 % Ointment 1 applic topical BID Qty: 0 0RF Protocol: *Topical Application Instructions APPLICATION INSTRUCTIONS: apply to buttocks sennosides-docusate sodium [Stimulant Laxative Plus] 8.6-50 mg Tablet 2 tab PO BID Qty: 0 0RF triamcinolone acetonide 0.1 % Cream 1 applic topical BID Qty: 15 0RF Protocol: *Topical Application Instructions APPLICATION INSTRUCTIONS: Call twice daily to rectal area Rx Instructions: Apply twice a day to rectal area as needed hemorrhoidal pain Continued buspirone 5 mg tablet 5 mg PO BID cholecalciferol (vitamin D3) 125 mcg (5,000 unit) capsule 125 mcg PO DAILY trazodone 50 mg tablet 50 mg PO QHS donepezil 10 mg tablet 10 mg PO DAILY levothyroxine 50 mcg tablet 50 mcg PO DAILY escitalopram oxalate 20 mg tablet 20 mg PO DAILY Patient Comments: PT TAKES AT BEDTIME. ascorbic acid (vitamin C) [C-500] 500 mg tablet 500 mg PO DAILY Discontinued acetaminophen 500 mg Tablet 1,000 mg PO Q8 Qty: 0 0RF sennosides-docusate sodium [Stimulant Laxative Plus] 8.6-50 mg Tablet 1 tab PO BID Qty: 0 0RF Eliquis 5 mg Tablet 5 mg PO BID Qty: 0 0RF clonazepam 0.5 mg tablet 0.5 mg PO Q8H PRN (Reason: anxiety) Rx Instructions: family states pt takes 1/2 tab am and 1 tab pm pretty routinely Referrals / Follow Up: Anaid Luna MD [Primary Care Provider] - Disposition Disposition (needs filled in before D/C Order can be placed): Assisted Facility Charges/Coding Visit Charges Inpatient E&M: 24230 Disch Hosp >30min
--- NOTE | 2025-06-25 15:33 | CASEMGMT ---
Social Work Physician updated and pt is ready for discharge today.? 7000 convalescent form completed in [facility] and sent along with discharge orders to [facility] via [facility].? Transportation arranged with [facility]ician ambulance for 17:00 pickup via cot.? SW met with pt and they are agreeable to discharge plan as stated above.? Pt dtr and bedside nurse notified of discharge time. Disposition:[facility], skilled level of care private pay AMINA Draper
[2025-06-25 15:53] VITALS: BP 169/63; PULSE 72; RESP 18; TEMP 36.2; O2SAT 97
== END 2025-06-25 17:03 | disposition skilled nursing facility (03) | DRG 698 ==
LOC: ED 14:36 → MS3 14:44
PROVIDERS: Admitting Provider Internal Medicine; Emergency Provider Emergency Medicine; PCP Internal Medicine; Visit Provider Internal Medicine
DX: T83.518A Infection and inflammatory reaction due to other urinary catheter, initial encounter (principal); E43 Unspecified severe protein-calorie malnutrition; N30.00 Acute cystitis without hematuria; F03.90 Unspecified dementia, unspecified severity, without behavioral disturbance, psychotic disturbance, mood disturbance, and anxiety; E03.9 Hypothyroidism, unspecified; I10 Essential (primary) hypertension; F32.A Depression, unspecified; F41.9 Anxiety disorder, unspecified; M25.552 Pain in left hip; M25.561 Pain in right knee; M25.562 Pain in left knee; W18.09XA Striking against other object with subsequent fall, initial encounter; B96.20 Unspecified Escherichia coli [E. coli] as the cause of diseases classified elsewhere; R53.1 Weakness; Z96.651 Presence of right artificial knee joint; Z68.22 Body mass index [BMI] 22.0-22.9, adult; Z79.890 Hormone replacement therapy; Z79.899 Other long term (current) drug therapy
CPT/HCPCS: 36415; 70450; 71260; 72125; 73080; 73502; 73560; 74177; 80048; 80053; 80076; 81001; 82550; 82962; 84443; 85025; 85027; 85610; 85730; 87077; 87086; 87088; 87186; 93005; 93970; 97116; 97162; 97166; 97530; 97535; 97802; 99285; Q9967; A4216

== ENCOUNTER → 2025-06-30 04:00 | Outpatient (REF) | payer MEDICARE, SELFPAY ==
--- OUTSIDE RECORDS SUMMARY | 2025-06-30 03:13 | XMS RPT_ITS | CCD ---
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 Vadim Florence DO Attending [...] Chelsea DELACRUZ, Dr. Allison Nicholson Other Provider [phone] Srinath DELACRUZ, Dr. Garfield Hernandez Admit Provider Srinath DELACRUZ, Dr. Garfield Hernandez Attending Provider Dr. Garfield Yo MD, Chi Referring Provider Sean DELACRUZ, Dr. Fierro Attending Provider Adele Gusman MD Attending Provider Unavaila moraima Morgan TOGGLER-C, Daya Attending Provider Adele Gusman MD Referring Provider Unavaila moraima Darby MD, Dr. Lane Emergency Provider Dr. Dillan Santiago MD Primary Care Provider Naseem DELACRUZ, Dr. Angulo Attending Provider Wilner DELACRUZ, Dr. Laen Attending Provider Eddie TOGGLER-C, Daya Attending Provider Karen PRICE, Dr. Olson Emergency Provider Jesse DELACRUZ, Dr. White Admit Provider Jesse DELACRUZ, Dr. White Attending Provider OLDER, MARIPOSA Referring Unavailable GANTA, [...] Attending Unavailable Ganta, Dillan Primary Care Unavailable Tereletsky, Bill Attending Unavailable Molina, Cindy Consulting Unavailable Molina, Cindy Admitting Unavailable Tereletsky, Bill Consulting Unavailable Vadim Estrada Attending Unavailable Ganta, Dillan Primary Care Unavailable Molina, Cindy Admitting Unavailable Molina, Cindy Consulting Unavailable Ganta, Dillan Primary Care Unavailable Tereletsky, Bill Attending Unavailable Ganta, Dillan Primary Care Unavailable Srinath, Garfield Chi Admitting Unavailable Srinath, Garfield Chi Attending Unavailable Ganta, Dillan Primary Care Unavailable Daya Head Attending Unavailable Adele Contreras Attending Unavailabl e Oleghe SHEFALI Efewongbe Referring [facility] Primary Care Unavailable Sharlene Contrerasongbe Attending Unavailabl e [facility] Primary Care Unavailable Vadim Estrada Attending Unavailable [facility] Primary Care Unavailable Srinath, Garfield Chi Referring Unavailable Koram, Allison Lyn Attending Unavailable [facility] Primary Care Unavailable Roro Long Admitting Unavailable [place] Rosas Consulting Unavailable Roro Long Consulting Unavailable Koram, Allison Lyn Consulting Unavailable Cindy Molina Attending Unavailable Eddie TOGGLER, Daya Attending Unavailable [facility] Primary Care Unavailable Eddie TOGGLER, Daya Attending Unavailable [facility] Primary Care Unavailable [facility] Primary Care Unavailable Adele Gusman Attending Unavailable Roro Long Attending Unavailable [facility] Primary Care Unavailable Srinath, Garfield Chi Attending Unavailable Srinath, Garfield Chi Referring Unavailable Vadim Florence Attending Unavailable [facility] Primary Care Unavailable Domingo Darby Attending Unavailable [facility] Primary Care Unavailable Roro Long Admitting Unavailable Koram, Allison Lyn Attending Unavailable [facility] Primary Care Unavailable [place] Rosas Consulting Unavailable Roro Long Consulting Unavailable Medications Current Medications Medication Drug Class(es) Dates Sig (Normalized) Sig (Original) acetaminophen 500 mg oral tablet (14 sources) Start: 03-16-2025 take 2 tablets by mouth every eight hours Acetaminophen 500 mg Tablet Active 1000 mg PO EVERY 8 HOURS 0 0 March 16, 2025 12:00am Start: 03-04-2025 End: 03-16-2025 Acetaminophen (Aphen) 325 mg tablet Discontinued 650 mg PO EVERY 6 HOURS as needed for pain 30 March 04, 2025 12:00am March 16, 2025 8:16pm amLODIPine (1 source) Dihydropyridine Calcium Channel Deshawn Start: 10-29-2019 amLODIPine Active October 29, 2019 12:00am apixaban 5 mg oral tablet (15 sources) Factor Xa Inhibitor Start: 03-16-2025 End: 08-04-2025 take 1 tablet by mouth twice daily Apixaban (Eliquis) 5 mg Tablet Active 5 mg PO TWICE A DAY 0 0 March 16, 2025 12:00am ascorbic acid 500 mg oral tablet (20 [...] Active busPIRone hydrochloride 5 mg oral tablet (8 sources) Start: 06-20-2025 take 1 tablet by mouth twice daily Buspirone 5 mg tablet Active 5 mg PO TWICE A DAY June 20, 2025 12:00am Start: 05-06-2025 take 1 tablet by tatiana th twice daily busPIRone (BUSPAR) 5 mg tablet Take 1 tablet by mouth two times a day. 60 tablet 3 05/06/2025 Active Catheter (SELF-CATHETER, FEMALE) 14 Fr misc (20 sources) Catheter (SELF-CATHETER, FEMALE) 14 Fr misc Self catheterizes four times daily Active cholecalciferol 0.125 mg oral capsule (1 source) Vitamin D Start: 06-20-20 take 1 capsule by mouth once daily Cholecalciferol (Vitamin D3) 125 mcg (5,000 unit) capsule Active 125 ug PO DAILY June 20, 2025 12:00am citalopram 20 mg oral tablet (18 sources) Serotonin Reuptake Inhibitor Start: 04-20-20 take 1 tablet by mouth once daily citalopram (CELEXA) 20 mg tablet Take 1 tablet by mouth once daily. 30 tablet 2 04/20/2025 Active Start: 10-29-2019 Citalopram Act morro October 29, 2019 12:00am clonazePAM 0.5 mg oral tablet (20 sources) Benzodiazepine Start: 06-20-2025 take 0.5 tablet by mouth every eight hours in the morning for anxiety, then take 1 tablet by mouth in the evening for anxiety Clonazepam 0.5 mg tablet Active 0.5 mg PO Q8H as needed for anxiety June 20, 2025 12:00am family states pt takes 1/2 tab am and 1 tab pm pretty routinely Start: 03-16-2025 End: 05-04-2025 take 1 tablet by mouth at bedtime Clonazepam 0.5 mg tablet Discontinued 0.5 mg PO AT BEDTIME 14 14 0 April 20, 2025 6:15am May 03, 2025 12:00am May 04, 2025 12:07am Start: 03-16-2025 End: 05-04-2025 Clonazepam 0.5 mg tablet Discontinued 0.25 mg PO 0600 7 14 0 April 20, 2025 6:14am May 03, 2025 12:00am May 04, 2025 12:07am Start: 01-31-2025 End: 07-03-2025 take 1 tablet by mouth three times daily as needed for anxiety Clonazepam 0.5 mg tablet Discontinued 0.5 mg PO THREE TIMES A DAY as needed for anxiety March 01, 2025 12:00am March 16, 2025 8:17pm Start: 01-31-2025 End: 01-26-2025 take 1 tablet [...] Discontinued docusate sodium 50 mg / sennosides, intermediate 8.6 mg oral tablet (6 sources) Start: 03-16-2025 Sennosides-Doc usate Sodium (Stimulant Laxative Plus) 8.6-50 mg Tablet Active 1 {tbl} PO TWICE A DAY 0 0 March 16, 2025 12:00am donepezil hydrochloride 10 mg oral tablet (20 sources) Start: 03-01-2025 take 1 tablet by mouth once daily Donepezil 10 mg tablet Active 10 mg PO DAILY March 01, 2025 12:00am dementia Start: 02-04-2025 End: 02-04-2025 take 1 tablet [...] take 1 tablet by mouth once daily Levothyroxine 50 mcg tablet Active 50 ug PO DAILY March 01, 2025 12:00am thyroid Start: 11-05-2024 End: 11-06-2024 take 1 capsule [...] as needed. 2000 mL 3 05/06/2025 Active traZODone hydrochloride 50 mg oral tablet (20 [...] 2024 1:21pm aspirin 81 mg oral tablet (8 sources) Platelet Aggregation Inhibitor, Nonsteroidal Anti-inflammatory Drug Start: 03-04-2025 End: 03-16-2025 take 1 capsule by mouth twice daily Aspirin 81 mg capsule Discontinued 81 mg PO TWICE A DAY 56 28 0 March 04, 2025 12:00am March 16, 2025 8:17pm prophylactic cephalexin 500 mg oral capsule (18 sources) Cephalosporin Antibacterial Start: 05-17-2025 End: 06-20-2025 take 1 capsule by mouth every six hours Cephalexin 500 mg capsule Discontinued 500 mg PO EVERY 6 HOURS 28 7 0 May 17, 2025 12:00am June 20, 2025 8:32am Acute urinary tract infection Urinary tract infection, [...] 17, 2025 1:00am March 01, 2025 12:29pm [place] (1 source) Start: 10-29-2019 End: 01-17-2024 [place] Discontinued October 29, 2019 12:00am January 17, 2024 1:21pm One Daily Complete Tablet (1 source) Start: 10-29-2019 End: 01-17-2024 One Daily Complete Tablet Discontinued October 29, 2019 12:00am January 17, 2024 1:21pm traMADol hydrochloride 50 mg oral tablet (6 sources) Opioid Agonist Start: 03-16-2025 End: 06-20-2025 take 1 tablet by mouth every six hours as needed for pain Tramadol 50 mg Tablet Discontinued 50 mg PO EVERY 6 HOURS NEEDED as needed for Pain Score 1-5 12 3 0 March 16, 2025 12:00am June 20, 2025 8:50am Problems Active Problems Problem Classification Problem Date [...] Onset: 4 11-05-2024 Episodic Malaise and fatigue (18 sources) Asthenia; Translations: [Other malaise] Onset: 5 03-04-2025 Episodic Miscellaneous mental health disorders (1 source) Insomnia disorder related to another mental disorder; Translations: [Insomnia due to other mental disorder] 02-04-2025 Chronic Mood disorders (14 sources) Depressive disorder; Translations: [Depression] 03-04-2025 Chronic [...] source) Long-term current use of anticoagulant; Translations: [anglesmith (current) use of anticoagulants] 04-17-2025 Episodic Other aftercare (1 source) Encounter for other orthopedic aftercare; Translations: [Encounter for other orthopedic aftercare] Onset: 5 Episodic Other circulatory disease (5 sources) H/O: hypertension; Translations: [Personal history of [...] to limbs] Onset: 5 04-17-2025 Episodic Other ear and sense organ disorders [...] (1 source) Onychogryphosis; Translations: [Thickened nail] Onset: Episodic Other skin disorders (1 source) Ingrowing nail; Translations: [IGTN (ingrowing toe nail)] Onset: 5 Episodic Phlebitis; thrombophlebitis and thromboembolism (2 sources) Acute deep vein thrombosis of lower limb; Translations: [Acute embolism and thrombosis of unspecified deep veins of left proximal lower extremity] 04-17-2025 Episodic Residual codes; unclassified (3 sources) Dependence on other enabling machines and devices; Translations: [Dependence on other enabling machines] Onset: 5 11-05-2024 Chronic Residual codes; unclassified (7 sources) Finding related to ability to manage personal health care; Translations: [Other specified health status] 11-05-2024 Episodic Residual codes; unclassified (15 sources) Insomnia; Translations: [Insomnia, unspecified] 03-04-2025 Episodic Residual codes; unclassified (1 source) Edema; Translations: [Edema, unspecified] 05-06-2025 Episodic Residual codes; unclassified (3 sources) Other specified health status; Translations: [Self-catheterizes urinary bladder] Onset: Episodic Residual codes; unclassified (1 source) Disorientation, unspecified; Translations: [Disorientation, unspecified] Onset: Episodic Screening and history of mental health and substance abuse codes (5 sources) H/O: dementia; Translations: [Personal history of other mental and behavioral disorders] 05-17-2025 Episodic Thyroid disorders (19 sources) Hypothyroidism; Translations: [Hypothyroidism, unspecified] Onset: 4 11-05-2024 Chronic Unclassified (1 source) Finding related to ability to manage personal health care 06-03-2025 Unclassified (1 source) 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); Translations: [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)] Onset: Unclassified (2 sources) Acute embolism and thrombosis of left peroneal vein; Translations: [Acute embolism and thrombosis of left peroneal vein] Onset: 5 Urinary tract infections (18 sources) Recurrent urinary tract infection; Translations: [Urinary tract infection, site not specified] Onset: 5 02-19-2025 Episodic Past or Other Problems Problem Classification Problem Date Documented Date Episodic/Chronic Administrative/social admission (8 sources) First encounter by subject; Translations: [Persons encountering health services in other specified circumstances] Onset: 11-05-2024 11-05-2024 Episodic Other connective tissue disease (1 source) Pain in left lower leg; Translations: [Pain in left lower leg] Onset: 03-12-2025 Episodic Other nervous system disorders (1 source) Other abnormalities of gait and mobility; Translations: [Balance disorder] Onset: 12-10-2024 Episodic Other screening for suspected conditions (not mental disorders or infectious disease) (2 sources) Patient encounter status; Translations: [Encounter for screening for lipoid disorders] Onset: 11-17-2024 11-05-2024 Episodic Results Test Name Value Interpretation Reference Range Facility Venous Duplex US - Kyle Extre mon 06-23-2025 Venous Duplex US - Kyle Extrem Normal [facility] Basic Metabolic Profile (BMP )on 06-22-2025 BUN/CRE 22.3 RATIO High 10-20 [facility] Comment on above: Performed By: #### L 500.2500, L100.0500 ####[facility] [address] [place], [address] Calcium [Mass/Vol] 8.5 mg/dL Normal 7.6-11.0 [facility] Comment on above: Performed By: #### L 500.2500, L100.0500 ####[facility] [address] [place], [address] Chloride [Moles/Vol] 103 mmol/L Normal 98-108 [facility] Comment on above: Performed By: #### L 500.2500, L100.0500 ####[facility] [address] [place], [address] CO2 [Moles/Vol] 22.8 mmol/L Normal 21.0-32.0 [facility] Comment on above: Performed By: #### L 500.2500, L100.0500 ####[facility] [address] [place], [address] Creatinine [Mass/Vol] 0.72 mg/dL Normal 0.70-1.20 [facility] Comment on above: Performed By: #### L 500.2500, L100.0500 ####[facility] [address] [place], [address] ECRCL 37.60 ml/min Low 50-250 [facility] Comment on above: Performed By: #### L 500.2500, L100.0500 ####[facility] [address] [place], [address] GAP 12 Normal 5-15 [facility] Comment on above: Performed By: #### L 500.2500, L100.0500 ####[facility] [address] [place], [address] GFR/1.73 sq M.predicted among non-blacks MDRD (S/P/Bld) [Vol rate/Area] 82 mL/min/{1.73_m2} Normal >60 [facility] Comment on above: Result Comment: mL/m in/1.73m2 CKD-EPI Creatinine Equation (2020) Performed By: #### L 500.2500, L100.0500 ####[facility] [address] [place], [address] Glucose [Mass/Vol] 94 mg/dL Normal 70-99 [facility] Comment on above: Performed By: #### L 500.2500, L100.0500 ####[facility] [address] [place], [address] Potassium [Moles/Vol] 3.4 mmol/L Normal 3.3-5.1 [facility] Comment on above: Performed By: #### L 500.2500, L100.0500 ####[facility] [address] [place], [address] Sodium [Moles/Vol] 137 mmol/L Normal 133-145 [facility] Comment on above: Performed By: #### L 500.2500, L100.0500 ####[facility] [address] [place], [address] Urea nitrogen [Mass/Vol] 16 mg/dL Normal 4-19 [facility] Comment on above: Performed By: #### L 500.2500, L100.0500 ####[facility] [address] [place], [address] CBC-Complete Blood Cnt No Di ffon 06-22-2025 Erythrocyte distribution width (RBC) [Ratio] 13.4 % Normal 11.6-14.6 [facility] Comment on above: Performed By: #### L 500.2500, L100.0500 ####[facility] [address] [place], [address] Hematocrit (Bld) [Volume fraction] 32.5 % Low 37-47 [facility] Comment on above: Performed By: #### L 500.2500, L100.0500 ####[facility] [address] [place], [address] Hemoglobin (Bld) [Mass/Vol] 11.3 g/dL Low 12.0-15.0 [facility] Comment on above: Performed By: #### L 500.2500, L100.0500 ####[facility] [address] [place], [address] MCH (RBC) [Entitic mass] 29.7 pg Normal 27.0-32.0 [facility] Comment on above: Performed By: #### L 500.2500, L100.0500 ####[facility] [address] [place], [address] MCHC (RBC) [Mass/Vol] 34.8 g/dL Normal 32-36 [facility] Comment on above: Performed By: #### L 500.2500, L100.0500 ####[facility] [address] [place], [address] MCV (RBC) [Entitic vol] 85.5 fL Normal 81-99 [facility] Comment on above: Performed By: #### L 500.2500, L100.0500 ####[facility] [address], [address] Platelet mean volume (Bld) [Entitic vol] 10.3 fL Normal 6.2-12.0 [facility] Comment on above: Performed By: #### L 500.2500, L100.0500 ####[facility] [address] [place], [address] Platelets (Bld) [#/Vol] 181 10*3/uL Normal 150-450 [facility] Comment on above: Performed By: #### L 500.2500, L100.0500 ####[facility] [address] [place], [address] RBC (Bld) [#/Vol] 3.80 10*6/uL Low 4.2-5.4 [facility] Comment on above: Performed By: #### L 500.2500, L100.0500 ####[facility] [address] [place], [address] RDW SD 42.1 fl Normal 35.1-43.9 [facility] Comment on above: Performed By: #### L 500.2500, L100.0500 ####[facility] [address] [place], [address] WBC (Bld) [#/Vol] 9.4 10*3/uL Normal 4.4-11.0 [facility] Comment on above: Performed By: #### L 500.2500, L100.0500 ####[facility] [address] [place], [address] Urine Cultureon 06-22-2025 URC Normal [facility] Comment on above: Performed By: #### M 100.2200 ####[facility] [address] [place], [address] Bedside Glucoseon 06-21-2025 FINGERSTICK GLU 95 mg/dL Normal 74-106 [facility] Comment on above: Result Comment: MOMO BLEDSOE OF PATIENT CARE PER NURSING PROTOCOL Performed By: #### L 501.080 ####[facility] [address] [place], [address] CBC W/Diff, Automatedon 08-0 3-5 Absolute Lymph 1.40 X10 3/uL Normal 0.83-4.51 [facility] Comment on above: Performed By: #### L 100.0100, L500.4050, [id number] ####[facility] [address] [place], [address] Absolute Neut 11.3 X10 3/uL High 2.0-7.7 [facility] Comment on above: Performed By: #### L 100.0100, L500.4050, [id number] ####[facility] [address] [place], [address] Basophils/100 WBC (Bld) 0.6 % Normal 0-1 [facility] Comment on above: Performed By: #### L 100.0100, L500.4050, [id number] ####[facility] [address] [place], [address] Eosinophils/100 WBC (Bld) 1.6 % Normal 0-5 [facility] Comment on above: Performed By: #### L 100.0100, L500.4050, [id number] ####[facility] [address] [place], [address] Erythrocyte distribution width (RBC) [Ratio] 13.6 % Normal 11.6-14.6 [facility] Comment on above: Performed By: #### L 100.0100, L500.4050, [id number] ####[facility] [address] [place], [address] Hematocrit (Bld) [Volume fraction] 34.9 % Low 37-47 [facility] Comment on above: Performed By: #### L 100.0100, L500.4050, [id number] ####[facility] [address] [place], [address] Hemoglobin (Bld) [Mass/Vol] 11.9 g/dL Low 12.0-15.0 [facility] Comment on above: Performed By: #### L 100.0100, [id number], [id number] ####[facility] [address] [place], [address] IG% 0.800 Normal 0.0-0.9 [facility] Comment on above: Result Comment: IG% - Immature Granulocytes (promyelocytes, myelocytes andmetamyelocytes) > 1% indicates that a LEFT SHIFT is Present. Performed By: #### L 100.0100, L500.4050, [id number] ####[facility] [address] [place], [address] Lymphocytes/100 WBC (Bld) 9.7 % Low 19-41 [facility] Comment on above: Performed By: #### L 100.0100, L500.4050, [id number] ####[facility] [address] [place], [address] MCH (RBC) [Entitic mass] 30.0 pg Normal 27.0-32.0 [facility] Comment on above: Performed By: #### L 100.0100, [id number], [id number] ####[facility] [address] [place], [address] MCHC (RBC) [Mass/Vol] 34.1 g/dL Normal 32-36 [facility] Comment on above: Performed By: #### L 100.0100, [id number], [id number] ####[facility] [address] [place], [address] MCV (RBC) [Entitic vol] 87.9 fL Normal 81-99 [facility] Comment on above: Performed By: #### L 100.0100, [id number], [id number] ####[facility] [address] [place], [address] Monocytes/100 WBC (Bld) 9.0 % Normal 0-10 [facility] Comment on above: Performed By: #### L 100.0100, [id number], [id number] ####[facility] [address] [place], [address] Neutrophils/100 WBC (Bld) 78.3 % High 47-70 [facility] Comment on above: Performed By: #### L 100.0100, [id number], [id number] ####[facility] [address] [place], [address] Nucleated RBC (Bld) [#/Vol] 0 10*3/uL Normal 0-5 [facility] Comment on above: Performed By: #### L 100.0100, [id number], [id number] ####[facility] [address] [place], [address] Platelet mean volume (Bld) [Entitic vol] 10.9 fL Normal 6.2-12.0 [facility] Comment on above: Performed By: #### L 100.0100, [id number], [id number] ####[facility] [address] [place], [address] Platelets (Bld) [#/Vol] 203 10*3/uL Normal 150-450 [facility] Comment on above: Performed By: #### L 100.0100, [id number], [id number] ####[facility] [address] [place], [address] RBC (Bld) [#/Vol] 3.97 10*6/uL Low 4.2-5.4 [facility] Comment on above: Performed By: #### L 100.0100, [id number], [id number] ####[facility] [address] [place], [address] RDW SD 43.8 fl Normal 35.1-43.9 [facility] Comment on above: Performed By: #### L 100.0100, [id number], [id number] ####[facility] [address] [place], [address] WBC (Bld) [#/Vol] 14.5 10*3/uL High 4.4-11.0 [facility] Comment on above: Performed By: #### L 100.0100, L500.4050, L501.9520 ####[facility] [address] [place], [address] Comprehensive Metabolic [facility] 06-21-2025 Albumin [Mass/Vol] 3.4 g/dL Normal 3.4-4.8 [facility] Comment on above: Performed By: #### L 100.0100, L500.4050, [id number] ####[facility] [address] [place], [address] Albumin/Globulin [Mass ratio] 1.3 {ratio} Normal 0.9-2.4 [facility] Comment on above: Performed By: #### L 100.0100, L500.4050, [id number] ####[facility] [address] [place], [address] ALK PHOS 94 U/L Normal 35-104 [facility] Comment on above: Performed By: #### L 100.0100, L500.4050, [id number] ####[facility] [address] [place], [address] ALT [Catalytic activity/Vol] 16 U/L Normal <=34 [facility] Comment on above: Performed By: #### L 100.0100, L500.4050, [id number] ####[facility] [address] [place], [address] AST [Catalytic activity/Vol] 44 U/L High <=31 [facility] Comment on above: Performed By: #### L 100.0100, L500.4050, [id number] ####[facility] [address] [place], [address] Bilirubin [Mass/Vol] 1.46 mg/dL High 0.00-1.30 [facility] Comment on above: Performed By: #### L 100.0100, L500.4050, [id number] ####[facility] [address] [place], [address] BUN/CRE 22.2 RATIO High 10-20 [facility] Comment on above: Performed By: #### L 100.0100, L500.4050, [id number] ####[facility] [address] [place], [address] Calcium [Mass/Vol] 8.8 mg/dL Normal 7.6-11.0 [facility] Comment on above: Performed By: #### L 100.0100, L500.4050, [id number] ####[facility] [address] [place], [address] Chloride [Moles/Vol] 103 mmol/L Normal 98-108 [facility] Comment on above: Performed By: #### L 100.0100, L500.4050, [id number] ####[facility] [address] [place], [address] CO2 [Moles/Vol] 23.9 mmol/L Normal 21.0-32.0 [facility] Comment on above: Performed By: #### L 100.0100, L500.4050, [id number] ####[facility] [address] [place], [address] Creatinine [Mass/Vol] 0.92 mg/dL Normal 0.70-1.20 [facility] Comment on above: Performed By: #### L 100.0100, L500.4050, [id number] ####[facility] [address] [place], [address] ECRCL 32.70 ml/min Low 50-250 [facility] Comment on above: Performed By: #### L 100.0100, L500.4050, [id number] ####[facility] [address] [place], [address] GAP 12 Normal 5-15 [facility] Comment on above: Performed By: #### L 100.0100, L500.4050, [id number] ####[facility] [address] [place], [address] GFR/1.73 sq M.predicted among non-blacks MDRD (S/P/Bld) [Vol rate/Area] 62 mL/min/{1.73_m2} Normal >60 [facility] Comment on above: Result Comment: mL/m in/1.73m2 CKD-EPI Creatinine Equation (2020) Performed By: #### L 100.0100, L500.4050, [id number] ####[facility] [address] [place], [address] Globulin (S) [Mass/Vol] 2.5 g/dL Normal 2.2-4.2 [facility] Comment on above: Performed By: #### L 100.0100, L500.4050, [id number] ####[facility] [address] [place], [address] Glucose [Mass/Vol] 93 mg/dL Normal 70-99 [facility] Comment on above: Performed By: #### L 100.0100, L500.4050, [id number] ####[facility] [address] [place], [address] Potassium [Moles/Vol] 3.5 mmol/L Normal 3.3-5.1 [facility] Comment on above: Performed By: #### L 100.0100, L500.4050, [id number] ####[facility] [address] [place], [address] Sodium [Moles/Vol] 139 mmol/L Normal 133-145 [facility] Comment on above: Performed By: #### L 100.0100, L500.4050, [id number] ####[facility] [address] [place], [address] T PROT 5.9 g/dL Normal 5.9-8.4 [facility] Comment on above: Performed By: #### L 100.0100, L500.4050, [id number] ####[facility] [address] [place], [address] Urea nitrogen [Mass/Vol] 20 mg/dL High 4-19 [facility] Comment on above: Performed By: #### L 100.0100, L500.4050, [id number] ####[facility] [address] [place], [address] Thyroid Stim Hormone (TSH)on 06-21-2025 TSH 1.600 uIU/mL Normal 0.300-4.200 [facility] Comment on above: Performed By: #### L 100.0100, L500.4050, [id number] ####[facility] [address] [place], [address] 12 Lead EKGon 06-20-2025 12 Lead EKG Normal [facility] Absolute lymphocyte countOrd ered By: Wesley Jones on 06-20-2025 Lymphocytes Auto (Unsp spec) [#/Vol] 0.99 10*3/uL 0.83-4.51 [facility] Absolute neutrophil countOrd ered By: Wesley Jones on 06-20-2025 Neutrophils (Bld) [#/Vol] 25.4 10*3/uL High 2.0-7.7 [facility] Activated partial thrombopla stin time (aPTT) in platelet poor plasma by coagulation aOrdered By: Wesley Jones on 06-20-2025 aPTT Coag (PPP) [Time] 35.6 s 24.1-36.2 [facility] Anion gap in Serum or Plasma Ordered By: Wesley Jones on 06-20-2025 Anion gap [Moles/Vol] 15 mmol/L 5-15 [facility] Automated lymphocyte count a s percentage of total leukocytesOrdered By: Wesley Jones on 06-20-2025 Lymphocytes/100 WBC Auto (Unsp spec) 3.5 % Low 19-41 [facility] BUN/creatinine ratioOrdered By: Wesley Jones on 06-20-2025 Urea nitrogen/Creatinine [Mass ratio] 18.1 mg/mg 10-20 [facility] Basic Metabolic Profile (BMP )on 06-20-2025 BUN/CRE 18.1 RATIO Normal 10-20 [facility] Comment on above: Performed By: #### L 500.3400, L500.2500, L300.4310, L300.3900, L100.0100 ####[facility] [address] [place], [address] Calcium [Mass/Vol] 9.9 mg/dL Normal 7.6-11.0 [facility] Comment on above: Performed By: #### L 500.3400, L500.2500, L300.4310, L300.3900, L100.0100 ####[facility] [address] [place], [address] Chloride [Moles/Vol] 99 mmol/L Normal 98-108 [facility] Comment on above: Performed By: #### L 500.3400, L500.2500, L300.4310, L300.3900, L100.0100 ####[facility] [address] [place], [address] CO2 [Moles/Vol] 24.3 mmol/L Normal 21.0-32.0 [facility] Comment on above: Performed By: #### L 500.3400, L500.2500, L300.4310, L300.3900, L100.0100 ####[facility] [address] [place], [address] Creatinine [Mass/Vol] 0.93 mg/dL Normal 0.70-1.20 [facility] Comment on above: Performed By: #### L 500.3400, L500.2500, L300.4310, L300.3900, L100.0100 ####[facility] [address] [place], [address] ECRCL 32.34 ml/min Low 50-250 [facility] Comment on above: Performed By: #### L 500.3400, L500.2500, L300.4310, L300.3900, L100.0100 ####[facility] [address] [place], [address] GAP 15 Normal 5-15 [facility] Comment on above: Performed By: #### L 500.3400, L500.2500, L300.4310, L300.3900, L100.0100 ####[facility] [address] [place], [address] GFR/1.73 sq M.predicted among non-blacks MDRD (S/P/Bld) [Vol rate/Area] 60 mL/min/{1.73_m2} Normal >60 [facility] Comment on above: Result Comment: mL/m in/1.73m2 CKD-EPI Creatinine Equation (2020) Performed By: #### L 500.3400, L500.2500, L300.4310, L300.3900, L100.0100 ####[facility] [address] [place], [address] Glucose [Mass/Vol] 149 mg/dL High 70-99 [facility] Comment on above: Performed By: #### L 500.3400, L500.2500, L300.4310, L300.3900, L100.0100 ####[facility] [address] [place], [address] Potassium [Moles/Vol] 3.7 mmol/L Normal 3.3-5.1 [facility] Comment on above: Performed By: #### L 500.3400, L500.2500, L300.4310, L300.3900, L100.0100 ####[facility] [address] [place], [address] Sodium [Moles/Vol] 138 mmol/L Normal 133-145 [facility] Comment on above: Performed By: #### L 500.3400, L500.2500, L300.4310, L300.3900, L100.0100 ####[facility] [address] [place], [address] Urea nitrogen [Mass/Vol] 17 mg/dL Normal 4-19 [facility] Comment on above: Performed By: #### L 500.3400, L500.2500, L300.4310, L300.3900, L100.0100 ####[facility] [address] [place], [address] Basophil percentageOrdered B y: Wesley Jones on 06-20-2025 Basophils/100 WBC (Bld) 0.3 % 0-1 [facility] Bilirubin Test strip Ql (U)O rdered By: Wesley Jones on 06-20-2025 Bilirubin Ql (U) Negative Negative [facility] Bilirubin directOrdered By: Wesley Jones on 06-20-2025 Bilirubin.direct [Mass/Vol] 0.85 mg/dL High 0.00-0.30 [facility] Bilirubin, totalOrdered By: Wesley Jones on 06-20-2025 Bilirubin [Mass/Vol] 2.15 mg/dL High 0.00-1.30 [facility] Blood manual differential co mment interpretation (narrative result)Ordered By: Wesley Jones on 06-20-2025 Manual differential comment José Miguel (Bld) [Interp] See comment [facility] Comment on above: NEUTROPHILIA Brain/Head without Contrasto n 06-20-2025 Brain/Head without Contrast Normal [facility] CBC W/Diff, Automatedon SMEAR COMMENT Normal [facility] Comment on above: Result Comment: NEUT ROPHILIA Performed By: #### L 500.3400, L500.2500, L300.4310, L300.3900, L100.0100 ####[facility] [address] [place], [place], [address] CPK Total, Creatine Kinaseon 06-20-2025 CPK TOTAL 914 U/L High 24-195 [facility] Comment on above: Performed By: #### L 501.3620 ####[facility] [address] [place], [address] CT Chest, Abd, Pel w/Contras ton 06-20-2025 CT Chest, Abd, Pel w/Contrast Normal [facility] Carbon dioxide, total [Moles /volume] in Central venous bloodOrdered By: Wesley Jones on 06-20-2025 CO2 [Moles/Vol] 24.3 mmol/L 21.0-32.0 [facility] Chloride assayOrdered By: Bridger Jones on 06-20-2025 Chloride [Moles/Vol] 99 mmol/L 98-108 [facility] Elbow min 3 Viewson 06-20-20 25 Elbow min 3 Views Normal [facility] Emergency Department Summary on 06-20-2025 Emergency Department Summary Normal [facility] Eosinophil percentageOrdered By: Wesley Jones on 06-20-2025 Eosinophils/100 WBC (Bld) 0.0 % 0-5 [facility] Erythrocyte distribution wid th ratioOrdered By: Wesley Jones on 06-20-2025 Erythrocyte distribution width (RBC) [Ratio] 13.5 % 11.6-14.6 [facility] Erythrocyte distribution wid th standard deviationOrdered By: Wesley Jones on 06-20-2025 Erythrocyte distribution width (RBC) [Ratio] 42.5 fl 35.1-43.9 [facility] Glomerular filtration rate ( GFR) estimation/1.73 sq m using serum, plasma, or whole bOrdered By: Wesley Jones on 06-20-2025 GFR/1.73 sq M.predicted among non-blacks MDRD (S/P/Bld) [Vol rate/Area] 60 mL/min/{1.73_m2} >60 [facility] Comment on above: mL/min/1.73m2 CKD-EP I Creatinine Equation (2020) H AND P Exam - Hospitaliston 06-20-2025 H&P Exam - Hospitalist Normal [facility] HIP, UNI W/ Pelvis 2-3 Views on 06-20-2025 HIP, UNI W/ Pelvis 2-3 Views Normal [facility] Hematocrit Auto (Bld) [Volum e fraction]Ordered By: Wesley Jones on 06-20-2025 Hematocrit (Bld) [Volume fraction] 41.5 % 37-47 [facility] Hemoglobin measurementOrdere d By: Wesley Jones on 06-20-2025 Hemoglobin (Bld) [Mass/Vol] 14.3 g/dL 12.0-15.0 [facility] Immature granulocytes/100 WB C Auto (Bld)Ordered By: Wesley Jones on 06-20-2025 Immature granulocytes/100 WBC (Bld) 1.400 % High 0.0-0.9 [facility] Comment on above: IG% - Immature Granu locytes (promyelocytes, myelocytes and metamyelocytes) > 1% indicates that a LEFT SHIFT is Present. International normalized rat io (INR) calculationOrdered By: Wesley oJnes on 06-20-2025 INR Coag (Bld) [Relative time] 1.6 {INR} [facility] Ketones Test strip Ql (U)Ord ered By: Wesley Peterer on 06-20-2025 Ketones Ql (U) 5 mg/dl High Negative [facility] Knee 1 or 2 Viewson 06-20-20 25 Knee 1 or 2 Views Normal [facility] Laboratory - Chemistry and C hemistry - challengeOrdered By: Wesley Karen on 06-20-2025 AST [Catalytic activity/Vol] 47 U/L High <32 [facility] Liver Profileon 06-20-2025 Albumin [Mass/Vol] 4.3 g/dL Normal 3.4-4.8 [facility] Comment on above: Performed By: #### L 500.3400, L500.2500, L300.4310, L300.3900, L100.0100 ####[facility] [address] [place], [address] ALK PHOS 121 U/L High 35-104 [facility] Comment on above: Performed By: #### L 500.3400, L500.2500, L300.4310, L300.3900, L100.0100 ####[facility] [address] [place], [address] ALT [Catalytic activity/Vol] 19 U/L Normal <=34 [facility] Comment on above: Performed By: #### L 500.3400, L500.2500, L300.4310, L300.3900, L100.0100 ####[facility] [address] [place], [address] AST [Catalytic activity/Vol] 47 U/L High <=31 [facility] Comment on above: Performed By: #### L 500.3400, L500.2500, L300.4310, L300.3900, L100.0100 ####[facility] [address] [place], [address] Bilirubin [Mass/Vol] 2.15 mg/dL High 0.00-1.30 [facility] Comment on above: Performed By: #### L 500.3400, L500.2500, L300.4310, L300.3900, L100.0100 ####[facility] [address] [place], [address] Bilirubin.direct [Mass/Vol] 0.85 mg/dL High 0.00-0.30 [facility] Comment on above: Performed By: #### L 500.3400, L500.2500, L300.4310, L300.3900, L100.0100 ####[facility] [address] [place], [address] Globulin (S) [Mass/Vol] 3.5 g/dL Normal 2.2-4.2 [facility] Comment on above: Performed By: #### L 500.3400, L500.2500, L300.4310, L300.3900, L100.0100 ####[facility] [address] [place], [address] T PROT 7.7 g/dL Normal 5.9-8.4 [facility] Comment on above: Performed By: #### L 500.3400, L500.2500, L300.4310, L300.3900, L100.0100 ####[facility] [address] [place], [address] MCV (mean corpuscular volume ) determinationOrdered By: Wesley Jones on 06-20-2025 MCV (RBC) [Entitic vol] 87.0 fL 81-99 [facility] Mean corpuscular hemoglobin (MCH) determinationOrdered By: Wesley Jones on 06-20-2025 MCH (RBC) [Entitic mass] 30.0 pg 27.0-32.0 [facility] Mean corpuscular hemoglobin concentration (MCHC) determinationOrdered By: Wesley Jones on 06-20-2025 MCHC (RBC) [Mass/Vol] 34.5 g/dL 32-36 [facility] Mean platelet volume determi nationOrdered By: Wesley Jones on 06-20-2025 Platelet mean volume (Bld) [Entitic vol] 10.6 fL 6.2-12.0 [facility] Microscopic analysis of urin e for red blood cells (RBC)Ordered By: Wesley Jones on 06-20-2025 Microscopic analysis of urine for red blood cells (RBC) 10-25 SEEN /hpf 0-5 [facility] Monocyte percentageOrdered B y: Wesley Jones on 06-20-2025 Monocytes/100 WBC (Bld) 5.6 % 0-10 [facility] Mucus LM Ql (Urine sed)Order ed By: Wesley Jones on 06-20-2025 Mucus Ql (Urine sed) 0 SEEN /hpf [facility] Neutrophil percentageOrdered By: Wesley Jones on 06-20-2025 Neutrophils/100 WBC (Bld) 89.2 % High 47-70 [facility] Nitrite Test strip Ql (U)Ord ered By: Wesley Jones on 06-20-2025 Nitrite Ql (U) Positive High Negative [facility] Nucleated red blood cell per centageOrdered By: Wesley Jones on 06-20-2025 Nucleated RBC/100 WBC (Bld) [Ratio] 0 % 0-5 [facility] Partial Thromboplast Timeon 06-20-2025 aPTT Coag (Bld) [Time] 35.6 s Normal 24.1-36.2 [facility] Comment on above: Performed By: #### L 500.3400, L500.2500, L300.4310, L300.3900, L100.0100 ####[facility] [address] [place], [place], [address] Platelet countOrdered By: Bridger Jones on 06-20-2025 Platelets (Bld) [#/Vol] 252 10*3/uL 150-450 [facility] Potassium measurement (mass/ volume)Ordered By: Wesley Jones on 06-20-2025 Potassium (Unsp spec) [Mass/Vol] 3.7 mmol/L 3.3-5.1 [facility] Protein Test strip Ql (U)Ord ered By: Wesley Jones on 06-20-2025 Protein Ql (U) 30 mg/dl High Negative [facility] Prothrombin Time w/INRon INR Coag (PPP) [Relative time] 1.6 {INR} Normal [facility] Comment on above: Performed By: #### L 500.3400, L500.2500, L300.4310, L300.3900, L100.0100 ####[facility] [address] [place], [place], [address] PT Coag (PPP) [Time] 19.6 s High 11.7-14.9 [facility] Comment on above: Performed By: #### L 500.3400, L500.2500, L300.4310, L300.3900, L100.0100 ####[facility] [address] [place], [place], [address] Prothrombin timeOrdered By: Wesley Jones on 06-20-2025 PT Coag (PPP) [Time] 19.6 s High 11.7-14.9 [facility] RBC Auto (Bld) [#/Vol]Ordere d By: Wesley Jones on 06-20-2025 RBC (Bld) [#/Vol] 4.77 10*6/uL 4.2-5.4 [facility] Serum creatinine measurement (mass/volume)Ordered By: Wesley Jones on 06-20-2025 Creatinine [Mass/Vol] 0.93 mg/dL 0.70-1.20 [facility] Serum globulin measurementOr dered By: Wesley Jones on 06-20-2025 Globulin (S) [Mass/Vol] 3.5 g/dL 2.2-4.2 [facility] Serum glucose measurement (m ass/volume)Ordered By: Wesley Jones on 06-20-2025 Glucose [Mass/Vol] 149 mg/dL High 70-99 [facility] Serum or plasma alanine tillman otransferase (ALT) measurementOrdered By: Wesley Jones on 06-20-2025 ALT [Catalytic activity/Vol] 19 U/L <35 [facility] Serum or plasma albumin thomas urement (mass/volume)Ordered By: Wesley Jones on 06-20-2025 Albumin [Mass/Vol] 4.3 g/dL 3.4-4.8 [facility] Serum or plasma alkaline mariah sphatase measurementOrdered By: Wesley Jones on 06-20-2025 ALP [Catalytic activity/Vol] 121 U/L High 35-104 [facility] Serum or plasma calcium thomas urement (mass/volume)Ordered By: Wesley Jones on 06-20-2025 Calcium [Mass/Vol] 9.9 mg/dL 7.6-11.0 [facility] Serum or plasma creatine kin ase activityOrdered By: Wesley Jones on 06-20-2025 CK [Catalytic activity/Vol] 914 U/L High 24-195 [facility] Serum or plasma urea nitroge n measurement (mass/volume)Ordered By: Wesley Jones on 06-20-2025 Urea nitrogen [Mass/Vol] 17 mg/dL 4-19 [facility] Sodium levelOrdered By: Kingston Jones on 06-20-2025 Sodium [Moles/Vol] 138 mmol/L 133-145 [facility] Spine Cervical without Contr ason 06-20-2025 Spine Cervical without Contras Normal [facility] Squamous epithelial cells de tection in urine sediment by light microscopyOrdered By: Wesley Jones on 06-20-2025 Epithelial cells.squamous LM Ql (Urine sed) 0-5 SEEN /hpf 5-10 [facility] Total proteinOrdered By: Dimple Jones on 06-20-2025 Protein [Mass/Vol] 7.7 g/dL 5.9-8.4 [facility] Urinalysis, Completeon 06-20 BACTERIA 1+ /hpf Normal None Seen [facility] Comment on above: Order Comment: CLEAN CATCH Performed By: #### L 400.0001 ####[facility] [address] [place], [address] EPI,SQUAMOUS 0-5 SEEN Normal 5-10 [facility] Comment on above: Order Comment: CLEAN CATCH Performed By: #### L 400.0001 ####[facility] [address] [place], [address] RBC 10-25 SEEN Normal 0-5 [facility] Comment on above: Order Comment: CLEAN CATCH Performed By: #### L 400.0001 ####[facility] [address] [place], [address] Mucus Ql (Urine sed) 0 SEEN Normal [facility] Comment on above: Order Comment: CLEAN CATCH Performed By: #### L 400.0001 ####[facility] [address] [place], [address] WBC 0 SEEN Normal 0-5 [facility] Comment on above: Order Comment: CLEAN CATCH Performed By: #### L 400.0001 ####[facility] [address] [place], [place], [address] Urine clarityOrdered By: Dimple Jones on 06-20-2025 Clarity (U) Clear Clear [facility] Urine color determinationOrd ered By: Wesley Jones on 06-20-2025 Color (U) Yellow Yellow [facility] Urine glucose detectionOrder ed By: Wesley Jones on 06-20-2025 Glucose Ql (U) Normal mg/dl Normal [facility] Urine leukocyte esterase det ection by dipstickOrdered By: Wesley Jones on 06-20-2025 Leukocyte esterase Test strip Ql (U) 100 /ul High Negative [facility] Urine pHOrdered By: Wesley li on 06-20-2025 pH (U) 5.0 [pH] 5.0 - 8.0 [facility] Urine sediment bacteria coun t by microscopy (number/high power field)Ordered By: Wesley Jones on 06-20-2025 Bacteria LM.HPF (Urine sed) [#/Area] 1 /[HPF] None Seen [facility] Urine specific gravity measu rementOrdered By: Wesley Jones on 06-20-2025 Specific gravity (U) [Rel density] 1.015 1.002-1.030 [facility] Urine urobilinogen measureme ntOrdered By: Wesley Jones on 06-20-2025 Urobilinogen Ql (U) Normal mg/dl Normal [facility] White blood cell (WBC) count Ordered By: Wesley Peterer on 06-20-2025 WBC (Bld) [#/Vol] 28.5 10*3/uL High 4.4-11.0 [facility] White blood cell countOrdere d By: Wesley Jones on 06-20-2025 White blood cell count 0 SEEN /hpf 0-5 [facility] CNPNon 06-17-2025 CNPN Telephone (INTMWS) ALIZAMICHAELA ([id number]) 1940 F Date Time Provider Department 06/17/25 DILLAN SANTIAGO INTMWS During your visit today, we recorded the following information about you: Gabi Mcelroy RN 06/17/2025 5:02 PM Signed Brissa from [facility] called in to let provider know that she went out to recertify the Pt. She reports nursing will be seeing the Pt once a week for 6 weeks to monitor a stage 2 ulcer on the L buttock. She states it is 0.3 x 0.3, so it is almost healed. They are just putting Triad cream on it now. ZACHARIAH Antonio Chitra, MD 06/18/2025 1:35 PM Signed Noted and agree Regards, Gabi Cesra MD, RN 06/18/2025 1:43 PM Signed Called and left a detailed voicemail notifying Brissa from [facility] of providers message. Clinic phone number was left in case she had any questions. Gabi Mcelroy RN Allergies As of Date: 06/17/2025 (No Known Allergies) Date Reviewed: 06/03/2025 Reviewed by: Mike Guo MA - Fully Assessed Reason for Visit: Home Health Point of Care Results [4060] Prescriptions as of 06/18/2025 - clonazePAM (KLONOPIN) 0.5 mg tablet Take 1 tablet by mouth three times a day as needed for anxiety for up to 30 days. - sodium chloride 0.9 % IRRIGATION Irrigate [...] by mouth two times a day. - citalopram (CELEXA) 20 mg tablet Take [...] once daily. 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 - You already have an appointment scheduled with podiatry in June. At that visit, they will assess your nails and provide appropriate treatment. - I documented the findings in your chart to ensure the natural sciences department chair is aware of the condition and can [...] a month ago, which was treated at [facility]. Michaela expresses reluctance to continue self-catheterization due to the risk of introducing infections and is considering a suprapubic catheter as an alternative. Michaela has not yet undergone an echocardiogram that was previously scheduled. She expresses a desire to reschedule the appointment. Michaela is also experiencing issues with thickened toenails, which are causing discomfort when wearing shoes. She has an appointment with a natural sciences department chair next month for evaluation and treatment. Michaela [...] Michaela's daughter, who currently holds power of workers compensation defense attorney, is trying to prevent this. Michaela expresses a desire to maintain her independence and make her own decisions. Social History Tobacco Use Smoking status: Ne (more content not included)... Normal [facility] 05-20-2025 CNPN Telephone (INTMWS) MICHAELA BRANDT ([id number]) 1940 F Date Time Provider Department 05/20/25 DILLAN SANTIAGO INTWS During your visit today, we recorded the following information about you: Jagruti Veliz 05/20/2025 10:53 AM Signed Patient's daughter dropped off forms that need filled [facility], TOBIAS Cueto, att [phone]. Forms given to nurse. Please assist. Mike Guo MA 05/20/2025 5:03 PM Signed Forms given to PCP for review/signature. EVON Rouse Brittany L, MA 05/26/2025 11:29 AM Signed Forms completed and faxed back to # provided: [phone]. Mike Guo MA Allergies As of Date: [...] unstageable (*04/17/2025 DELMY (dementia of Alzheimer type) ([facility]) [G30.9, *04/17/2025 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] 04/17/2025 Closed fracture of left hip ([facility]) [S72.002A] 04/17/2025 Balance disorder [R26.89] 04/17/2025 Weakness of both lower extremities [R29.898] 04/17/2025 Encounter Status:Closed by MIKE GUO on 05/26/25 Normal [facility] Urine Cultureon 05-19-2025 URC Normal [facility] Comment on above: Performed By: #### M 100.2200 ####[facility] [address] [place], [place], [id number] Absolute lymphocyte countOrd ered By: Domingo Darby on 05-17-2025 Lymphocytes Auto (Unsp spec) [#/Vol] 1.24 10*3/uL 0.83-4.51 [facility] Absolute neutrophil countOrd ered By: Domingo Darby on 05-17-2025 Neutrophils (Bld) [#/Vol] 6.9 10*3/uL 2.0-7.7 [facility] Anion gap in Serum or Plasma Ordered By: Domingo Darby on 05-17-2025 Anion gap [Moles/Vol] 12 mmol/L 5- [facility] Automated lymphocyte count a s percentage of total leukocytesOrdered By: Domingo Darby on 05-17-2025 Lymphocytes/100 WBC Auto (Unsp spec) 14.1 % Low 19-41 [facility] BUN/creatinine ratioOrdered By: Domingo Darby on 05-17-2025 Urea nitrogen/Creatinine [Mass ratio] 15.6 mg/mg 10- [facility] Basic Metabolic Profile (BMP )on 05-17-2025 BUN/CRE 15.6 RATIO Normal - [facility] Comment on above: Performed By: #### L 100.0100, L500.2500 ####[facility] [address] [place], [address] Calcium [Mass/Vol] 9.0 mg/dL Normal 7.6-11.0 [facility] Comment on above: Performed By: #### L 100.0100, L500.2500 ####[facility] [address] [place], [address] Chloride [Moles/Vol] 104 mmol/L Normal 98-108 [facility] Comment on above: Performed By: #### L 100.0100, L500.2500 ####[facility] [address] [place], [address] CO2 [Moles/Vol] 26.5 mmol/L Normal 21.0-32.0 [facility] Comment on above: Performed By: #### L 100.0100, L500.2500 ####[facility] [address] [place], [address] Creatinine [Mass/Vol] 0.96 mg/dL Normal 0.70-1.20 [facility] Comment on above: Performed By: #### L 100.0100, L500.2500 ####[facility] [address] [place], [address] GAP 12 Normal 5-15 [facility] Comment on above: Performed By: #### L 100.0100, L500.2500 ####[facility] [address] [place], [address] GFR/1.73 sq M.predicted among non-blacks MDRD (S/P/Bld) [Vol rate/Area] 58 mL/min/{1.73_m2} Low >60 [facility] Comment on above: Result Comment: mL/m in/1.73m2 CKD-EPI Creatinine Equation (2020) Performed By: #### L 100.0100, L500.2500 ####[facility] [address] [place], [address] Glucose [Mass/Vol] 97 mg/dL Normal 70-99 [facility] Comment on above: Performed By: #### L 100.0100, L500.2500 ####[facility] [address] [place], [address] Potassium [Moles/Vol] 3.9 mmol/L Normal 3.3-5.1 [facility] Comment on above: Result Comment: Hemo lysis present, Results??could be affected.?? Performed By: #### L 100.0100, L500.2500 ####[facility] [address] [place], [address] Sodium [Moles/Vol] 142 mmol/L Normal 133-145 [facility] Comment on above: Performed By: #### L 100.0100, L500.2500 ####[facility] [address] [place], [address] Urea nitrogen [Mass/Vol] 15 mg/dL Normal 4-19 [facility] Comment on above: Performed By: #### L 100.0100, L500.2500 ####[facility] [address] [place], [address] Basophil percentageOrdered B y: Domingo Darby on 05-17-2025 Basophils/100 WBC (Bld) 0.6 % 0-1 [facility] Bilirubin Test strip Ql (U)O rdered By: Domingo Darby on 05-17-2025 Bilirubin Ql (U) Negative Negative [facility] CBC W/Diff, Automatedon 04-20 Absolute Lymph 1.24 X10 3/uL Normal 0.83-4.51 [facility] Comment on above: Performed By: #### L 100.0100, L500.2500 ####[facility] [address] [place], [address] Absolute Neut 6.9 X10 3/uL Normal 2.0-7.7 [facility] Comment on above: Performed By: #### L 100.0100, L500.2500 ####[facility] [address] [place], [address] Basophils/100 WBC (Bld) 0.6 % Normal 0-1 [facility] Comment on above: Performed By: #### L 100.0100, L500.2500 ####[facility] [address] [place], [address] Eosinophils/100 WBC (Bld) 0.9 % Normal 0-5 [facility] Comment on above: Performed By: #### L 100.0100, L500.2500 ####[facility] [address] [place], [address] Erythrocyte distribution width (RBC) [Ratio] 13.1 % Normal 11.6-14.6 [facility] Comment on above: Performed By: #### L 100.0100, L500.2500 ####[facility] [address] [place], [address] Hematocrit (Bld) [Volume fraction] 36.5 % Low 37-47 [facility] Comment on above: Performed By: #### L 100.0100, L500.2500 ####[facility] [address] [place], [address] Hemoglobin (Bld) [Mass/Vol] 12.5 g/dL Normal 12.0-15.0 [facility] Comment on above: Performed By: #### L 100.0100, L500.2500 ####[facility] [address] [place], [address] IG% 0.500 Normal 0.0-0.9 [facility] Comment on above: Result Comment: IG% - Immature Granulocytes (promyelocytes, myelocytes andmetamyelocytes) > 1% indicates that a LEFT SHIFT is Present. Performed By: #### L 100.0100, L500.2500 ####[facility] [address] [place], [address] Lymphocytes/100 WBC (Bld) 14.1 % Low 19-41 [facility] Comment on above: Performed By: #### L 100.0100, L500.2500 ####[facility] [address] [place], [address] MCH (RBC) [Entitic mass] 30.0 pg Normal 27.0-32.0 [facility] Comment on above: Performed By: #### L 100.0100, L500.2500 ####[facility] [address] [place], [address] MCHC (RBC) [Mass/Vol] 34.2 g/dL Normal 32-36 [facility] Comment on above: Performed By: #### L 100.0100, L500.2500 ####[facility] [address] [place], [address] MCV (RBC) [Entitic vol] 87.5 fL Normal 81-99 [facility] Comment on above: Performed By: #### L 100.0100, L500.2500 ####[facility] [address] [place], [address] Monocytes/100 WBC (Bld) 5.1 % Normal 0-10 [facility] Comment on above: Performed By: #### L 100.0100, L500.2500 ####[facility] [address] [place], [address] Neutrophils/100 WBC (Bld) 78.8 % High 47-70 [facility] Comment on above: Performed By: #### L 100.0100, L500.2500 ####[facility] [address] [place], [address] Nucleated RBC (Bld) [#/Vol] 0 10*3/uL Normal 0-5 [facility] Comment on above: Performed By: #### L 100.0100, L500.2500 ####[facility] [address] [place], [address] Platelet mean volume (Bld) [Entitic vol] 10.4 fL Normal 6.2-12.0 [facility] Comment on above: Performed By: #### L 100.0100, L500.2500 ####[facility] [address] [place], [address] Platelets (Bld) [#/Vol] 181 10*3/uL Normal 150-450 [facility] Comment on above: Performed By: #### L 100.0100, L500.2500 ####[facility] [address] [place], [address] RBC (Bld) [#/Vol] 4.17 10*6/uL Low 4.2-5.4 [facility] Comment on above: Performed By: #### L 100.0100, L500.2500 ####[facility] [address] [place], [address] RDW SD 41.9 fl Normal 35.1-43.9 [facility] Comment on above: Performed By: #### L 100.0100, L500.2500 ####[facility] [address] [place], [address] WBC (Bld) [#/Vol] 8.8 10*3/uL Normal 4.4-11.0 [facility] Comment on above: Performed By: #### L 100.0100, L500.2500 ####[facility] [address] [place], [address] Carbon dioxide, total [Moles /volume] in Central venous bloodOrdered By: Domingo Darby on 05-17-2025 CO2 [Moles/Vol] 26.5 mmol/L 21.0-32.0 [facility] Chloride assayOrdered By: Kodak Darby on 05-17-2025 Chloride [Moles/Vol] 104 mmol/L 98-108 [facility] Emergency Department Summary on 05-17-2025 Emergency Department Summary Normal [facility] Eosinophil percentageOrdered By: Domingo Darby on 05-17-2025 Eosinophils/100 WBC (Bld) 0.9 % 0-5 [facility] Erythrocyte distribution wid th ratioOrdered By: Domingo Darby on 05-17-2025 Erythrocyte distribution width (RBC) [Ratio] 13.1 % 11.6-14.6 [facility] Erythrocyte distribution wid th standard deviationOrdered By: Domingo Darby on 05-17-2025 Erythrocyte distribution width (RBC) [Ratio] 41.9 fl 35.1-43.9 [facility] Glomerular filtration rate ( GFR) estimation/1.73 sq m using serum, plasma, or whole bOrdered By: Domingo Darby on 05-17-2025 GFR/1.73 sq M.predicted among non-blacks MDRD (S/P/Bld) [Vol rate/Area] 58 mL/min/{1.73_m2} Low >60 [facility] Comment on above: mL/min/1.73m2 CKD-EP I Creatinine Equation (2020) Hematocrit Auto (Bld) [Volum e fraction]Ordered By: Domingo Darby on 05-17-2025 Hematocrit (Bld) [Volume fraction] 36.5 % Low 37-47 [facility] Hemoglobin measurementOrdere d By: Domingo Darby on 05-17-2025 Hemoglobin (Bld) [Mass/Vol] 12.5 g/dL 12.0-15.0 [facility] Immature granulocytes/100 WB C Auto (Bld)Ordered By: Domingo Darby on 05-17-2025 Immature granulocytes/100 WBC (Bld) 0.500 % 0.0-0.9 [facility] Comment on above: IG% - Immature Granu locytes (promyelocytes, myelocytes and metamyelocytes) > 1% indicates that a LEFT SHIFT is Present. Ketones Test strip Ql (U)Ord ered By: Domingo Darby on 05-17-2025 Ketones Ql (U) Negative Negative [facility] MCV (mean corpuscular volume ) determinationOrdered By: Domingo Darby on 05-17-2025 MCV (RBC) [Entitic vol] 87.5 fL 81-99 [facility] Mean corpuscular hemoglobin (MCH) determinationOrdered By: Domingo Darby on 05-17-2025 MCH (RBC) [Entitic mass] 30.0 pg 27.0-32.0 [facility] Mean corpuscular hemoglobin concentration (MCHC) determinationOrdered By: Domingo Darby on 05-17-2025 MCHC (RBC) [Mass/Vol] 34.2 g/dL 32-36 [facility] Mean platelet volume determi nationOrdered By: Domingo Darby on 05-17-2025 Platelet mean volume (Bld) [Entitic vol] 10.4 fL 6.2-12.0 [facility] Microscopic analysis of urin e for red blood cells (RBC)Ordered By: Domingo Darby on 05-17-2025 Microscopic analysis of urine for red blood cells (RBC) 0-5 SEEN /hpf 0-5 [facility] Monocyte percentageOrdered B y: Domingo Darby on 05-17-2025 Monocytes/100 WBC (Bld) 5.1 % 0-10 [facility] Mucus LM Ql (Urine sed)Order ed By: Domingo Darby on 05-17-2025 Mucus Ql (Urine sed) 0 SEEN /hpf [facility] Neutrophil percentageOrdered By: Domingo Darby on 05-17-2025 Neutrophils/100 WBC (Bld) 78.8 % High 47-70 [facility] Nitrite Test strip Ql (U)Ord ered By: Domingo Darby on 05-17-2025 Nitrite Ql (U) Positive High Negative [facility] Nucleated red blood cell per centageOrdered By: Domingo Darby on 05-17-2025 Nucleated RBC/100 WBC (Bld) [Ratio] 0 % 0-5 [facility] Platelet countOrdered By: Kodak Darby on 05-17-2025 Platelets (Bld) [#/Vol] 181 10*3/uL 150-450 [facility] Potassium measurement (mass/ volume)Ordered By: Domingo Darby on 05-17-2025 Potassium (Unsp spec) [Mass/Vol] 3.9 mmol/L 3.3-5.1 [facility] Comment on above: Hemolysis present, R esults could be affected. Protein Test strip Ql (U)Ord ered By: Domingo Darby on 05-17-2025 Protein Ql (U) 30 mg/dl High Negative [facility] RBC Auto (Bld) [#/Vol]Ordere d By: Domingo Darby on 05-17-2025 RBC (Bld) [#/Vol] 4.17 10*6/uL Low 4.2-5.4 [facility] Serum creatinine measurement (mass/volume)Ordered By: Domingo Darby on 05-17-2025 Creatinine [Mass/Vol] 0.96 mg/dL 0.70-1.20 [facility] Serum glucose measurement (m ass/volume)Ordered By: Domingo Darby on 05-17-2025 Glucose [Mass/Vol] 97 mg/dL 70-99 [facility] Serum or plasma calcium thomas urement (mass/volume)Ordered By: Domingo Darby on 05-17-2025 Calcium [Mass/Vol] 9.0 mg/dL 7.6-11.0 [facility] Serum or plasma urea nitroge n measurement (mass/volume)Ordered By: Domingo Darby on 05-17-2025 Urea nitrogen [Mass/Vol] 15 mg/dL 4-19 [facility] [place] [facility] Sodium levelOrdered By: Domingo Darby on 05-17-2025 Sodium [Moles/Vol] 142 mmol/L 133-145 [facility] Squamous epithelial cells de tection in urine sediment by light microscopyOrdered By: Domingo Darby on 05-17-2025 Epithelial cells.squamous LM Ql (Urine sed) 0-5 SEEN /hpf -10 [facility] Urinalysis, Completeon 05-17 EPI,SQUAMOUS 0-5 SEEN Normal 5-10 [facility] Comment on above: Order Comment: CLEAN CATCH Performed By: #### L 400.0001 ####[facility] [address] [facility] [address] RBC 0-5 SEEN Normal 0-5 [facility] Comment on above: Order Comment: CLEAN CATCH Performed By: #### L 400.0001 ####[facility] [address] [place], [address] WBC 50-100 SEEN Normal 0-5 [facility] Comment on above: Order Comment: CLEAN CATCH Performed By: #### L 400.0001 ####[facility] [address] [place], [address] BACTERIA 0 SEEN Normal None Seen [facility] Comment on above: Order Comment: CLEAN CATCH Performed By: #### L 400.0001 ####[facility] [address] [place], [address] Mucus Ql (Urine sed) 0 SEEN Normal [facility] Comment on above: Order Comment: CLEAN CATCH Performed By: #### L 400.0001 ####[facility] [address] [place], [address] Urine clarityOrdered By: Rey Darby on 05-17-2025 Clarity (U) Clear Clear [facility] Urine color determinationOrd ered By: Domingo Darby on 05-17-2025 Color (U) Yellow Yellow [facility] Urine cultureOrdered By: Rey Darby on 05-17-2025 Bacteria identified Cx Nom (U) Escherichia coli Abnormal [facility] Urine glucose detectionOrder ed By: Domingo Darby on 05-17-2025 Glucose Ql (U) Normal mg/dl Normal [facility] Urine leukocyte esterase det ection by dipstickOrdered By: Domingo Darby on 05-17-2025 Leukocyte esterase Test strip Ql (U) 100 /ul High Negative [facility] Urine pHOrdered By: Domingo nicholas on 05-17-2025 pH (U) 6.0 [pH] 5.0 - 8.0 [facility] Urine sediment bacteria coun t by microscopy (number/high power field)Ordered By: Domingo Darby on 05-17-2025 Bacteria LM.HPF (Urine sed) [#/Area] 0 /[HPF] None Seen [facility] Urine specific gravity measu rementOrdered By: Domingo Darby on 05-17-2025 Specific gravity (U) [Rel density] 1.020 1.002-1.030 [facility] Urine urobilinogen measureme ntOrdered By: Domingo Darby on 05-17-2025 Urobilinogen Ql (U) Normal mg/dl Normal [facility] White blood cell (WBC) count Ordered By: Domingo Darby on 05-17-2025 WBC (Bld) [#/Vol] 8.8 10*3/uL 4.4-11.0 [facility] White blood cell countOrdere d By: Domingo Darby on 05-17-2025 White blood cell count 50-100 SEEN /hpf 0-5 [facility] CNPNon 05-07-2025 CNPN Telephone (INTMWS) MICHAELA BRANDT ([id number]) 1940 F Date Time Provider Department 05/07/25 DILLAN SANTIAGO INTMWS During your visit today, we recorded the following information about you: Michaelle Tai RN 05/07/2025 11:16 AM Signed [employer] [facility] reports pt has fine crackles in the bases of her lungs again. Reports patient denies Shortness of Breath, and the swelling has decreased. No fever. Otherwise, besides pt's anxiety she feels great. Asking if pcp wants to order a CXR? If pcp wants to order a CXR please fax order to Jose M Zheng at fax # [phone] Please advise and phone Ivis with reply: [phone] Dillan Santiago MD 05/11/2025 5:08 PM Signed [...] LPN - Fully Assessed Reason for Visit: [facility] requesting order [Other] Prescriptions as of 05/12/2025 [...] unstageable (*04/17/2025 DELMY (dementia of Alzheimer type) ([facility]) [G30.9, *04/17/2025 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] 04/17/2025 Closed fracture of left hip ([facility]) [S72.002A] 04/17/2025 Balance disorder [R26.89] 04/17/2025 Weakness of both lower extremities [R29.898] 04/17/2025 Encounter Status:Closed by Michaelle TAI on 05/12/25 [facility] CNOVon 05-06-2025 CNOV Office Visit (GERVIANEYR ) MICHAELA BRANDT ([id number]) 1940 F Date Time Provider Department 05/06/25 [...] is currently receiving home care services, including mcfp, physical therapy, and occupational therapy. She has aides assisting her from [id number] and [phone] daily. Due to financial constraints, the family [...] a wheelchair. She also mentions having a "gentleman friend" who visits twice a week. Social History [...] mg tablet Catheter (SELF-CATHETER, FEMALE) 14 Fr [facility] Maintenance DTaP,Tdap,Td Vaccine(1 - Tdap) Bone [...] (R33.9) Self-catheterize (more content not included)... Normal [facility] Markus [facility]-06-2025 [facility] MICHAELA BRAND[facility] ([id number]) 1940 F Date Time Provider Department 05/06/25 DILLAN SANTIAGO INTSOL During your visit today, we recorded the following information about you: Kecia Red RN 05/06/2025 5:03 PM Signed Gabi PT with [facility] calls to let provider know that [...] unstageable (*04/17/2025 DELMY (dementia of Alzheimer type) ([facility]) [G30.9, *04/17/2025 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] 04/17/2025 Closed fracture of left hip ([facility]) [S72.002A] 04/17/2025 Balance disorder [R26.89] 04/17/2025 Weakness of both lower extremities [R29.898] 04/17/2025 Prescriptions ordered this encounter Disp Refills Start End BUSPIRONE 5 MG TABLET 60 t* 3 05/06/2025 Route: PO Sig: Take 1 tablet by mouth two times a day. Encounter Status:Closed by MIKE GUO on 05/07/25 Normal [facility] Comprehensive metabolic 2000 panelon 05-06-2025 Albumin [Mass/Vol] 3.8 g/dL Low 3.9-4.9 [facility] Comment on above: Order Comment: Speci men Type: BLOOD SPECIMENOrdering Facility: [facility] Address: [address] [place] [address] Performed By: #### 2 4323-8, 84005-1 ####[facility] LABCLIA [id number] [place] [address] [place] ALP [Catalytic activity/Vol] 100 U/L Normal 34-123 [facility] Comment on above: Order Comment: Speci men Type: BLOOD SPECIMENOrdering Facility: [facility] Address: [address] [place] [address] Performed By: #### 2 4323-8, 29045-7 ####[facility] LABCLIA [id number] [place] [address] [place] ALT [Catalytic activity/Vol] 9 U/L Normal 7-38 [facility] Comment on above: Order Comment: Speci men Type: BLOOD SPECIMENOrdering Facility: [facility] Address: [address] [place] [address] Performed By: #### 2 4323-8, 25814-4 ####[facility] LABCLIA [id number] [place] [id number] [place] Anion gap [Moles/Vol] 11 mmol/L Normal 8-15 [facility] Comment on above: Order Comment: Speci men Type: BLOOD SPECIMENOrdering Facility: [facility] Address: [address] [place] [address] Performed By: #### 2 4323-8, 97164-4 ####[facility] LABCLIA [id number] [place] [id number] [place] AST [Catalytic activity/Vol] 17 U/L Normal 13-35 [facility] Comment on above: Order Comment: Speci men Type: BLOOD SPECIMENOrdering Facility: [facility] Address: [address] [place] [address] Performed By: #### 2 4323-8, 93319-2 ####[facility] LABCLIA [id number] [address] [address] [place] Bilirubin [Mass/Vol] 0.7 mg/dL Normal 0.2-1.3 [facility] Comment on above: Order Comment: Speci men Type: BLOOD SPECIMENOrdering Facility: [facility] Address: [address] [place], [place] [address] Performed By: #### 2 4323-8, 17949-3 ####[facility] LABCLIA [id number] [place] [address] [place] Calcium [Mass/Vol] 9.2 mg/dL Normal 8.5-10.2 [facility] Comment on above: Order Comment: Speci men Type: BLOOD SPECIMENOrdering Facility: [facility] Address: [address] [place], [place] [address] Performed By: #### 2 4323-8, 20838-0 ####[facility] LABCLIA [id number] [place] [address] [place] Chloride [Moles/Vol] 104 mmol/L Normal 98-107 [facility] Comment on above: Order Comment: Speci men Type: BLOOD SPECIMENOrdering Facility: [facility] Address: [address] [address] Performed By: #### 2 4323-8, 06609-3 ####[facility] LABCLIA [id number] [place] [address] [place] CO2 [Moles/Vol] 24 mmol/L Normal 22-30 [facility] Comment on above: Order Comment: Speci men Type: BLOOD SPECIMENOrdering Facility: [facility] Address: [address] [place], [place] [address] Performed By: #### 2 4323-8, 73888-3 ####[facility] LABIA [id number] [place] [address] [place] Creatinine [Mass/Vol] 0.70 mg/dL Normal 0.58-0.96 [facility] Comment on above: Order Comment: Speci men Type: BLOOD SPECIMENOrdering Facility: [facility] Address: [address] [place] [address] Performed By: #### 2 4323-8, 28094-7 ####[facility] LABIA [id number] [address] Creatinine and Glomerular filtration rate.predicted panel (S/P/Bld) 85 mL/min/1.73m??? Normal >=60 [facility] Comment on above: Order Comment: Marcel hopper Type: BLOOD SPECIMENOrdering Facility: [facility] Address: [address] [place] [address] Result Comment: Linda mated Glomerular Filtration Rate [...] actual GFR. Performed By: #### 2 4323-8, 69568-4 ####[facility] LABIA [id number] [place] [address] [place] Glucose [Mass/Vol] 93 mg/dL Normal 74-99 [facility] Comment on above: Order Comment: Speci men Type: BLOOD SPECIMENOrdering Facility: [facility] Address: [address] [place] [address] Result Comment: The [place] Diabetes Association (ADA) provides guidance for cutoff [...] Standards of Medical Care in Diabetes 2016, [place] Diabetes Association. Diabetes Care. 2016.39(Suppl 1). Performed By: #### 2 4323-8, 42471-7 ####[facility] LABCLIA [id number] [address] [address] [place] Potassium [Moles/Vol] 4.0 mmol/L Normal 3.7-5.1 [facility] Comment on above: Order Comment: Speci men Type: BLOOD SPECIMENOrdering Facility: [facility] Address: [address] [place] [address] Performed By: #### 2 4323-8, 80200-8 ####[facility] LABIA [id number] [address] [address] [place] Protein [Mass/Vol] 6.6 g/dL Normal 6.3-8.0 [facility] Comment on above: Order Comment: Speci men Type: BLOOD SPECIMENOrdering Facility: [facility] Address: [address] [place] [address] Performed By: #### 2 4323-8, 44248-2 ####[facility] LABCLIA [id number] [address] [address] [place] Sodium [Moles/Vol] 139 mmol/L Normal 136-144 [facility] Comment on above: Order Comment: Speci men Type: BLOOD SPECIMENOrdering Facility: [facility] Address: [address] [place] [address] Performed By: #### 2 4323-8, 14996-7 ####[facility] LABCLIA [id number] [address] [address] [place] Urea nitrogen [Mass/Vol] 14 mg/dL Normal 7-21 [facility] Comment on above: Order Comment: Marcel men Type: BLOOD SPECIMENOrdering Facility: [facility] Address: [address] [place] [address] Performed By: #### 2 4323-8, 91622-6 ####[facility] LABCLIA [id number] [address] [place] HbA1c (Bld)on 05-06-2025 Average glucose Estimated from glycated hemoglobin (Bld) [Mass/Vol] 74 mg/dL Normal [facility] Comment on above: Order Comment: Marcel [facility] Type: BLOOD SPECIMENOrdering Facility: [facility] Address: [address] [place] [address] Result Comment: eAG: (Estimated average glucose) is a calculated value from HgbA1c and is insurance representative of the average blood glucose level in the last 2-3 month period. Performed By: #### 5 5454-3 ####[facility] LABCLIA [id number] [address] [place] HbA1c (Bld) [Mass fraction] 4.2 % Low 4.3-5.6 [facility] Comment on above: Order Comment: Marcel hopper Type: BLOOD SPECIMENOrdering Facility: [facility] Address: [address] [place] [address] Result Comment: Amer ican Diabetes Association guidelines indicate that patients with HgbA1c in the range 5.7-6.4% are at increased risk for development of diabetes, and intervention by lifestyle modification may be beneficial. HgbA1c greater or equal to 6.5% is considered diagnostic of diabetes. Performed By: #### 5 5454-3 ####[facility] LABCLIA [id number] [address] [place] NT-proBNP [facility] Natriuretic peptide.B prohormone N-Terminal [Mass/Vol] 113 pg/mL Normal <450 [facility] Comment on above: Order Comment: Speci men Type: BLOOD SPECIMENOrdering Facility: [facility] Address: [address] [place] [address] Performed By: #### 2 4323-8, 96523-6 ####[facility] LABCLIA [id number] JES BROWN [id number] [place] [address] OF [facility] CNPNon 05-04-2025 CNPN Telephone (FAMPWS) ARYAMICHAELA MARTINEZ ([id number]) 1940 F Date Time Provider Department 05/04/25 [facility] During your visit today, we recorded the following information about you: Nisha Clayton LPN 05/04/2025 8:50 AM Signed Brittni with [facility] calls in regards to TE from 04/24: Solange Craig RN 04/24/25 11:13 AM Note Brissa from [facility] is calling due to she saw [...] BNP, CMP, and A1C for patient? Regards, Pamela Tejeda MD, MA 05/04/2025 4:11 PM Signed Detailed message on secure [employer]. Pamela Power MA May 04, 2025 4:11 [...] unstageable (*04/17/2025 DELMY (dementia of Alzheimer type) ([facility]) [G30.9, *04/17/2025 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] 04/17/2025 Closed fracture of left hip ([facility]) [S72.002A] 04/17/2025 Balance disorder [R26.89] 04/17/2025 Weakness of both lower extremities [R29.898] 04/17/2025 Encounter Status:Closed by PAMELA POWER on 05/04/25 Normal [facility] CNPMarilu 04-27-2025 CNPN Telephone (UROLWS) MICHAELA BRANDT ([id number]) 1940 F Date Time Provider Department 04/27/25 [...] of orders. Please fax to Savanah at [facility] [phone]. JAIRON notes faxed through [employer]. EVON Miller Courtney, ZACHARIAH 04/27/2025 4:19 PM Signed JAIRON 12/23/24 Nusrat Palmer LPN 05/04/2025 9:05 AM Signed Tom Baltazar PA-C You3 days ago Yeemeterio I though Silas was doing this VADIM Stanford MT, PA-C You Mooney, Brandon, PA-C5 days ago KURTIS Hayes, do you [...] 10:03 AM Signed Tom Baltazar PA-C You; [facility] Pool; Desi Bergman, ZACHARIAH1 hour ago (8:44 AM) Please write orders and fax to R[facility] today id needed [facility] VADIM Stanford MT, PA-C Orders pended. Please review and sign. RAMIREZ Valdes Kimberly, LPN 05/06/2025 10:03 AM Signed Addended by: NUSRAT PALMER on: 05/06/2025 10:03 AM Modules accepted: Orders Tom Baltazar PA-C 05/06/2025 10:48 AM Signed Addended by: TOM BALTAZAR on: 05/06/2025 10:48 AM Modules accepted: Dillan Estrella MD 05/06/2025 12:05 PM Signed Here is the trail of the catheter discussion. RegardsDillan MD, Kimberly, LPN 05/06/2025 3:41 PM Signed Orders, urology office notes faxed to [facility]. RAMIREZ Valdes Kimberly, LPN 05/06/2025 3:50 PM Signed Called [facility], phone number for Savanah. Informed orders/office notes for urology in 12/23/2024 faxed. Awaiting lizarraga cathter size from provider. RAMIREZ Valdes Kimberly, LPN 05/07/2025 12:50 PM Signed Tom Baltazar PA-C You18 hours ago (5:52 PM) I am not the provider who has pt under home health care, that provider should be ordering the lizarraga exchanges and supplies needed. VADIM Stanford, IANASIR Called Savanah with [facility] on secured line- no answer. Left message from Tom. Nusrat Palmer LPN Allergies As of Date: 04/27/2025 (No Known Allergies) Date Reviewed: 04/17/2025 Reviewed by: Mike Guo MA - Fully Assessed Reason for Visit: Orders [681] Cmt: Self catheter Primary Visit Diagnosis:Urine retention [R33.9] Order(s):CATHETER INSERT-LIZARRAGA [[id number]] Order #: [id number] STANDING BEDSIDE DRAINAGE BAG [[id number]] Order #: [id number] STANDING sodium chloride 0.9 % IRRIGATIONIrrigate 60 mL as instructed once daily as needed.Disp: 1999 mLRfl: 3 BEDSIDE DRAINAGE BAG [[id number]] Order #: [id number] Prescriptions as of 05/07/2025 - sodium chloride [...] 2025. - Catheter (SELF-CATHETER, FEMALE) [facility] Self catheterizes four times daily - levothyroxine (EUTHYROX) 50 mcg tablet Take 1 tablet by mouth once daily. Problem List As Of Date 04/27/2025 Noted Resolved Urinary catheter in place [Z96.0] 04/17/2025 Ambulatory dysfunction [R26.2] 04/17/2025 Pressure injury of sacral region, unstageable (*04/17/2025 DELMY (dementia of Alzheimer type) ([facility]) [G30.9, *04/17/2025 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] 04/17/2025 Closed fracture of left hip ([facility]) [S72.002A] 04/17/2025 Balance disorder [R26.89] 04/17/2025 Weakness of both lower extremities [R29.898] 04/17/2025 Prescriptions ordered this encounter Disp Refills Start End SODIUM CH (more content not included)... Normal [facility] Markus 04-24-2025 ARIELN Telephone (EVAWS) MICHAELA BRANDT ([id number]) 1940 F Date Time Provider Department 04/24/25 DILLAN SANTIAGO During your visit today, we recorded the following information about you: Solange Craig, ZACHARIAH 04/24/2025 11:13 AM Signed Brissa from [facility] is calling due to she saw [...] nurse needs called back with information. Porsha Vasquez, ZACHARIAH 04/24/2025 3:00 PM Signed Patient's daughter Maribeth [...] if she should take her mother to [facility] or a [facility] ER. She states since she is affiliated with [facility] would it be in her best interest to just go to the [facility]. I told her that is up to her, but the closest one would be [place], [facility], or [place]. She said if they went to [facility] they could always get her transfer to [...] unstageable (*04/17/2025 DELMY (dementia of Alzheimer type) ([facility]) [G30.9, *04/17/2025 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] 04/17/2025 Closed fracture of left hip ([facility]) [S72.002A] 04/17/2025 Balance disorder [R26.89] 04/17/2025 Weakness of both lower extremities [R29.898] 04/17/2025 Encounter Status:Closed by SOLANGE CRAIG on 04/28/25 Normal [facility] Markus 04-21-2025 CNPN Telephone (FAMPWS) MICHAELA BRANDT ([id number]) 1940 F Date Time Provider Department 04/21/25 DILLAN SANTIAGO During your visit today, we [...] unstageable (*04/17/2025 DELMY (dementia of Alzheimer type) ([facility]) [G30.9, *04/17/2025 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] 04/17/2025 Closed fracture of left hip ([facility]) [S72.002A] 04/17/2025 Balance disorder [R26.89] 04/17/2025 Weakness of both lower extremities [R29.898] 04/17/2025 Encounter Status:Closed by MCKENZIE LOMBARDO on 04/22/25 [facility] 04-20-2025 [facility] (INT[facility]WS[facility] MICHAELA BRANDT ([id number]) 1940 F Date Time Provider Department 04/20/25 DILLAN SANTIAGO INTWS During your visit today, we recorded the following information about you: Gabi Mcelroy, RN 04/20/2025 3:09 PM Signed My CAO with [facility] called in POC. She states will be [...] left a message for My CAO with [facility] that if she has an updated medication list from [facility] the [facility] if she could fax that to Dr Santiago at [phone]. ZACHARIAH Antonio Beth, LPN 04/20/2025 3:36 PM Signed My calling back she will fax list from the SNF and will have to update med list with her admission notes to [facility] and fax that when she is able. Josy Saucedo, ZACHARIAH 04/20/2025 4:08 PM Signed Call received from My, nurse at [facility], regarding orders for Pt (see below notation). [facility] nurse observed Pt self-cath, and she was not cleansing herself well. Pt's daughter is voicing concern about Pt's inability to do this at home. [facility] is requesting order for chronic indwelling lizarraga cathether, 16F. Last OV with urology - Tom Baltazar PA-C: 12/23/2024 My home health nurse phone: [facility] office phone: Fax number for orders: Josy Saucedo RN April 20, 2025 4:07 PM Dillan Santiago MD 04/20/2025 5:03 PM Signed Agree Does she need orders for the 16 chinese indwelling lizarraga? Thanks Regards, Gabi Cesar MD, RN 04/20/2025 5:14 PM Signed My CAO with [facility] called and is notified of providers message. She voices understanding and reports that yes she does need the orders for the 16 chinese indwelling lizarraga. She states she can take [...] Fully Assessed Reason for Visit: Patient Update [4964] Orders [381] Prescriptions as of 04/20/2025 - citalopram (CELEXA) [...] unstageable (*04/17/2025 DELMY (dementia of Alzheimer type) ([facility]) [G30.9, *04/17/2025 S/P hip hemiarthroplasty [Z9 (more content not included)... Normal [facility] CNOVon 04-17-2025 CNOV Office Visit (INTMWS ) MICHAELA BRANDT ([id number]) 1940 F Date Time Provider Department 04/17/25 [...] is a positive sign for healing. - care home will be arranged to clean and care [...] you have experienced in the past. - care home will assist with catheter care, including monthly [...] These were helpful during your stay at [facility]. - Mental Health: - You are [...] are awaiting an updated medication list from [facility] to confirm all current prescriptions and dosages. - Living Arrangements: - Your daughter is exploring assisted living options for you, including a facility in [facility]. This will require private pay for [...] - A referral has been sent to [facility] for mcfp, PT, and OT. They will also assess your eligibility for additional home health aide services. - Your bob wichoanna marie is working with [employer] and other resources to explore options for [...] support your care needs. Next Steps: - care home, PT, and OT will be arranged through [...] transitional care (more content not included)... Normal [facility] CNPNon 04-17-2025 CNPN Telephone (INTMWS) MICHAELA BRANDT ([id number]) 1940 F Date Time Provider Department 04/17/25 DILLAN SANTIAGO INTMWS During your visit today, we recorded the following information about you: Mike Guo MA 04/17/2025 11:44 AM Signed TC to nurse at [place] to obtain current med list. Unable to reach. Left detailed message for nurse to [facility]. PCP office needs updated med list. EVON Rouse Amanda, ZACHARIAH 04/20/2025 6:40 PM Signed See TE from [...] unstageable (*04/17/2025 DELMY (dementia of Alzheimer type) ([facility]) [G30.9, *04/17/2025 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] 04/17/2025 Closed fracture of left hip ([facility]) [S72.002A] 04/17/2025 Balance disorder [R26.89] 04/17/2025 Weakness of both lower extremities [R29.898] 04/17/2025 Encounter Status:Closed by GABI MCELROY on 04/20/25 [facility] MICHAELA BRANDT ([id number]) 1940 F Date Time Provider Department 04/17/25 DILLAN SANTIAGO During your visit today, we [...] RN 04/17/2025 10:54 AM Signed Wes with [facility] called and is notified of providers message. [...] Status:Closed by GABI MCELROY on 04/17/25 Normal [facility] CNPN Telephone (NAVWST) ARYAMICHAELA MARTINEZ ([id number]) 1940 F Date Time Provider Department 04/17/25 KENTRELL MONTGOMERY During your visit today, we recorded the following information about you: Kentrell Montgomery, CONSTRUCTION JOB COST ESTIMATOR 04/17/2025 1:00 PM Signed This Sw received consult and will work on reaching out to patient daughter to discuss social service needs. This Thomas also notes that there is a message from today from [facility] noting orders for SN,PT,OT. It looks like Dr. Santiago agreed to [facility] seeing patient. Kentrell Montgomery, CONSTRUCTION JOB COST ESTIMATOR 04/17/2025 1:49 PM Signed Thomas tried call to patient daughter and vmail is full, unable to leave message. Thomas will try call another time. Kentrell Montgomery, [facility] 04/17/2025 3:19 PM Signed Thomas spoke with patient daughter in regards to Home Health questions and also current housing [place] options. Maribeth and Thomas discussed that [facility] looks to be an option for home healthcare. Thomas left message for [facility] referral line to call this Sw back to confirm if they will be serving patient home healthcare needs. Maribeth notes that [facility] will be providing home home care specialist next week when patient stays at her apt. Maribeth notes that patient will then be coming to stay with her,until opening at [facility]. Maribeth notes that she is working on getting bedroom ready at there home for patient to come and stay with he. There is a wait list at [facility]. Thomas will let patient daughter know what she finds out from [facility]. Maribeth also mentioned a letter for her mom's current [place] apt, to see about being released from [...] unstageable (*04/17/2025 DELMY (dementia of Alzheimer type) ([facility]) [G30.9, *04/17/2025 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] 04/17/2025 Closed fracture of left hip ([facility]) [S72.002A] 04/17/2025 Balance disorder [R26.89] 04/17/2025 Weakness of both lower extremities [R29.898] 04/17/2025 Encounter Status:Closed by DILLAN SANTIAGO on 04/17/25 Normal [facility] Basic Metabolic Profile (BMP )on 04-09-2025 BUN Normal 03-07 [facility] Comment on above: Result Comment: Canc elled via OM: Order cancelled - Patient discharged Performed By: #### L 100.0100, L500.2500 ####[facility] [address] [place], [address] BUN/CRE Normal 10-20 [facility] Comment on above: Result Comment: Canc elled via OM: Order cancelled - Patient discharged Performed By: #### L 100.0100, L500.2500 ####[facility] [address] [place], [address] Calcium Normal 7.6-11.0 [facility] [facility] Comment on above: Result Comment: Canc elled via OM: Order cancelled - Patient discharged Performed By: #### L 100.0100, L500.2500 ####[facility] [address] [place], [address] CL Normal 98-108 [facility] Comment on above: Result Comment: Canc elled via OM: Order cancelled - Patient discharged Performed By: #### L 100.0100, L500.2500 ####[facility] [address] [place], [address] CO2 Normal 21.0-32.0 [facility] Comment on above: Result Comment: Canc elled via OM: Order cancelled - Patient discharged Performed By: #### L 100.0100, L500.2500 ####[facility] [address] [place], [address] CREAT,SERUM Normal 0.70-1.20 [facility] Comment on above: Result Comment: Canc elled via OM: Order cancelled - Patient discharged Performed By: #### L 100.0100, L500.2500 ####[facility] [address] [place], [address] eGFR Normal >60 [facility] Comment on above: Result Comment: Canc elled via OM: Order cancelled - Patient discharged Performed By: #### L 100.0100, L500.2500 ####[facility] [address] [place], [address] GAP Normal 5-15 [facility] Comment on above: Result Comment: Canc elled via OM: Order cancelled - Patient discharged Performed By: #### L 100.0100, L500.2500 ####[facility] [address] [place], [address] GLU Normal 70-99 [facility] Comment on above: Result Comment: Canc elled via OM: Order cancelled - Patient discharged Performed By: #### L 100.0100, L500.2500 ####[facility] [address] [place], [address] Potassium Normal 3.3-5.1 [facility] Comment on above: Result Comment: Canc elled via OM: Order cancelled - Patient discharged Performed By: #### L 100.0100, L500.2500 ####[facility] [address] [place], [address] Basic Metabolic Profile (BMP) Normal 133-145 [facility] Comment on above: Result Comment: Canc elled via OM: Order cancelled - Patient discharged Performed By: #### L 100.0100, L500.2500 ####[facility] [address] [place], [address] CBC W/Diff, Automatedon 05-2 Absolute Neut Normal 2.0-7.7 [facility] Comment on above: Result Comment: Canc elled via OM: Order cancelled - Patient discharged Performed By: #### L 100.0100, L500.2500 ####[facility] [address] [place], [address] HCT Normal 37-47 [facility] Comment on above: Result Comment: Canc elled via OM: Order cancelled - Patient discharged Performed By: #### L 100.0100, L500.2500 ####[facility] [address] [place], [address] HGB Normal 12.0-15.0 [facility] Comment on above: Result Comment: Canc elled via OM: Order cancelled - Patient discharged Performed By: #### L 100.0100, L500.2500 ####[facility] [address] [place], [address] MCH Normal 27.0-32.0 [facility] Comment on above: Result Comment: Canc elled via OM: Order cancelled - Patient discharged Performed By: #### L 100.0100, L500.2500 ####[facility] [address] [place], [address] MCHC Normal 32-36 [facility] Comment on above: Result Comment: Canc elled via OM: Order cancelled - Patient discharged Performed By: #### L 100.0100, L500.2500 ####[facility] [address] [place], [address] MCV Normal 81-99 [facility] Comment on above: Result Comment: Canc elled via OM: Order cancelled - Patient discharged Performed By: #### L 100.0100, L500.2500 ####[facility] [address] [place], [address] NEUT% Normal 47-70 [facility] Comment on above: Result Comment: Canc elled via OM: Order cancelled - Patient discharged Performed By: #### L 100.0100, L500.2500 ####[facility] [address] [place], [address] PLT Normal 150-450 [facility] Comment on above: Result Comment: Canc elled via OM: Order cancelled - Patient discharged Performed By: #### L 100.0100, L500.2500 ####[facility] [address] [place], [address] RBC Normal 4.2-5.4 [facility] Comment on above: Result Comment: Canc elled via OM: Order cancelled - Patient discharged Performed By: #### L 100.0100, L500.2500 ####[facility] [address] [place], [address] RDW CV Normal 11.6-14.6 [facility] Comment on above: Result Comment: Canc elled via OM: Order cancelled - Patient discharged Performed By: #### L 100.0100, L500.2500 ####[facility] [address] [place], [address] RDW SD Normal 35.1-43.9 [facility] Comment on above: Result Comment: Canc elled via OM: Order cancelled - Patient discharged Performed By: #### L 100.0100, L500.2500 ####[facility] [address] [place], [address] WBC Normal 4.4-11.0 [facility] Comment on above: Result Comment: Canc elled via OM: Order cancelled - Patient discharged Performed By: #### L 100.0100, L500.2500 ####[facility] [address] [place], [address] Absolute lymphocyte countOrd ered By: Adele Gusman on 04-06-2025 Lymphocytes Auto (Unsp spec) [#/Vol] 1.67 10*3/uL 0.83-4.51 [facility] Absolute neutrophil countOrd ered By: Adele Gusman on 04-06-2025 Neutrophils (Bld) [#/Vol] 6.8 10*3/uL 2.0-7.7 [facility] Anion gap in Serum or Plasma Ordered By: Adele Gusman on 04-06-2025 Anion gap [Moles/Vol] 10 mmol/L 5-15 [facility] Automated lymphocyte count a s percentage of total leukocytesOrdered By: Adele Gusman on 04-06-2025 Lymphocytes/100 WBC Auto (Unsp spec) 17.8 % Low 19-41 [facility] BUN/creatinine ratioOrdered By: Jennifermacariokrystalmaxim Koenigwichodayron on 04-06-2025 Urea nitrogen/Creatinine [Mass ratio] 18.7 mg/mg 10-20 [facility] Basophil percentageOrdered B y: Jenniferelsa Aryawichodayron on 04-06-2025 Basophils/100 WBC (Bld) 0.4 % 0-1 [facility] Carbon dioxide, total [Moles /volume] in Central venous bloodOrdered By: macariorentonmaxim Koenigwichodayron on 04-06-2025 CO2 [Moles/Vol] 25.7 mmol/L 21.0-32.0 [facility] Chloride assayOrdered By: Jennifer macarioaleah Gusman on 04-06-2025 Chloride [Moles/Vol] 106 mmol/L 98-108 [facility] Eosinophil percentageOrdered By: macariorentonmaxim Aryawichodayron on 04-06-2025 Eosinophils/100 WBC (Bld) 1.2 % 0-5 [facility] Erythrocyte distribution wid th ratioOrdered By: [facility] Aryawichodayron on 04-06-2025 Erythrocyte distribution width (RBC) [Ratio] 13.7 % 11.6-14.6 [facility] Erythrocyte distribution wid th standard deviationOrdered By: [facility]xim Aryawichodayron on 04-06-2025 Erythrocyte distribution width (RBC) [Ratio] 46.9 fl High 35.1-43.9 [facility] Glomerular filtration rate ( GFR) estimation/1.73 sq m using serum, plasma, or whole bOrdered By: Jenniferelsa Koenigwichodayron on 04-06-2025 GFR/1.73 sq M.predicted among non-blacks MDRD (S/P/Bld) [Vol rate/Area] 74 mL/min/{1.73_m2} >60 [facility] Comment on above: mL/min/1.73m2 CKD-EP I Creatinine Equation (2020) Hematocrit Auto (Bld) [Volum e fraction]Ordered By: Sharlenerentonmaxim Gusman on 04-06-2025 Hematocrit (Bld) [Volume fraction] 33.6 % Low 37-47 [facility] Hemoglobin measurementOrdere d By: Adele Gusman on 04-06-2025 Hemoglobin (Bld) [Mass/Vol] 11.4 g/dL Low 12.0-15.0 [facility] Immature granulocytes/100 WB C Auto (Bld)Ordered By: Adele Gusman on 04-06-2025 Immature granulocytes/100 WBC (Bld) 1.000 % High 0.0-0.9 [facility] Comment on above: IG% - Immature Granu locytes (promyelocytes, myelocytes and metamyelocytes) > 1% indicates that a LEFT SHIFT is Present. MCV (mean corpuscular volume ) determinationOrdered By: Adele Gusman on 04-06-2025 MCV (RBC) [Entitic vol] 91.8 fL 81-99 [facility] Mean corpuscular hemoglobin (MCH) determinationOrdered By: macariorentonmaxim Gusman on 04-06-2025 MCH (RBC) [Entitic mass] 31.1 pg 27.0-32.0 [facility] Mean corpuscular hemoglobin concentration (MCHC) determinationOrdered By: elsa Gusman on 04-06-2025 MCHC (RBC) [Mass/Vol] 33.9 g/dL 32-36 [facility] Mean platelet volume determi nationOrdered By: Adele Gusman on 04-06-2025 Platelet mean volume (Bld) [Entitic vol] 10.9 fL 6.2-12.0 [facility] Monocyte percentageOrdered B y: Adele Gusman on 04-06-2025 Monocytes/100 WBC (Bld) 7.3 % 0-10 [facility] Neutrophil percentageOrdered By: elsa Gusman on 04-06-2025 Neutrophils/100 WBC (Bld) 72.3 % High 47-70 [facility] Nucleated red blood cell per centageOrdered By: Adele Gusman on 04-06-2025 Nucleated RBC/100 WBC (Bld) [Ratio] 0 % 0-5 [facility] Platelet countOrdered By: Jennifer Gusman on 04-06-2025 Platelets (Bld) [#/Vol] 160 10*3/uL 150-450 [facility] Potassium measurement (mass/ volume)Ordered By: Adele Gusman on 04-06-2025 Potassium (Unsp spec) [Mass/Vol] 3.6 mmol/L 3.3-5.1 [facility] RBC Auto (Bld) [#/Vol]Ordere d By: Adele Gusman on 04-06-2025 RBC (Bld) [#/Vol] 3.66 10*6/uL Low 4.2-5.4 [facility] Serum creatinine measurement (mass/volume)Ordered By: Adele Gusman on 04-06-2025 Creatinine [Mass/Vol] 0.79 mg/dL 0.70-1.20 [facility] Serum glucose measurement (m ass/volume)Ordered By: macariorentonmaxim Gusman on 04-06-2025 Glucose [Mass/Vol] 90 mg/dL 70-99 [facility] Serum or plasma calcium thomas urement (mass/volume)Ordered By: Adele Gusman on 04-06-2025 Calcium [Mass/Vol] 8.9 mg/dL 7.6-11.0 [facility] Serum or plasma urea nitroge n measurement (mass/volume)Ordered By: Adele Gusman on 04-06-2025 Urea nitrogen [Mass/Vol] 15 mg/dL - [facility] Sodium levelOrdered By: Sharlene hernandezej Aryawichodayron on 04-06-2025 Sodium [Moles/Vol] 142 mmol/L 133-145 [facility] White blood cell (WBC) count Ordered By: Adele Gusman on 04-06-2025 WBC (Bld) [#/Vol] 9.4 10*3/uL 4.4-11.0 [facility] Basic Metabolic Profile (BMP )on 04-02-2025 BUN Normal 03-07 [facility] Comment on above: Result Comment: Canc elled via OM: Order cancelled - Patient discharged Performed By: #### L 100.0100, L500.2500 ####[facility] [address] [place], [address] BUN/CRE Normal 10-20 [facility] Comment on above: Result Comment: Canc elled via OM: Order cancelled - Patient discharged Performed By: #### L 100.0100, L500.2500 ####[facility] [address] [place], [address] Calcium Normal 7.6-11.0 [facility] Comment on above: Result Comment: Canc elled via OM: Order cancelled - Patient discharged Performed By: #### L 100.0100, L500.2500 ####[facility] [address], [address] CL Normal 98-108 [facility] Comment on above: Result Comment: Canc elled via OM: Order cancelled - Patient discharged Performed By: #### L 100.0100, L500.2500 ####[facility] [address] [place], [address] CO2 Normal 21.0-32.0 [facility] Comment on above: Result Comment: Canc elled via OM: Order cancelled - Patient discharged Performed By: #### L 100.0100, L500.2500 ####[facility] [address] [place], [address] CREAT,SERUM Normal 0.70-1.20 [facility] Comment on above: Result Comment: Canc elled via OM: Order cancelled - Patient discharged Performed By: #### L 100.0100, L500.2500 ####[facility] [address] [place], [address] eGFR Normal >60 [facility] Comment on above: Result Comment: Canc elled via OM: Order cancelled - Patient discharged Performed By: #### L 100.0100, L500.2500 ####[facility] [address] [place], [address] GAP Normal 5-15 [facility] Comment on above: Result Comment: Canc elled via OM: Order cancelled - Patient discharged Performed By: #### L 100.0100, L500.2500 ####[facility] [address] [place], [address] GLU Normal 70-99 [facility] Comment on above: Result Comment: Canc elled via OM: Order cancelled - Patient discharged Performed By: #### L 100.0100, L500.2500 ####[facility] [address] [place], [address] Potassium Normal 3.3-5.1 [facility] Comment on above: Result Comment: Canc elled via OM: Order cancelled - Patient discharged Performed By: #### L 100.0100, L500.2500 ####[facility] [address] [place], [address] Basic Metabolic Profile (BMP) Normal 133-145 [facility] Comment on above: Result Comment: Canc elled via OM: Order cancelled - Patient discharged Performed By: #### L 100.0100, L500.2500 ####[facility] [address] [place], [address] CBC W/Diff, Automatedon 05-1 Absolute Neut Normal 2.0-7.7 [facility] Comment on above: Result Comment: Canc elled via OM: Order cancelled - Patient discharged Performed By: #### L 100.0100, L500.2500 ####[facility] [address] [place], [address] HCT Normal 37-47 [facility] Comment on above: Result Comment: Canc elled via OM: Order cancelled - Patient discharged Performed By: #### L 100.0100, L500.2500 ####[facility] [address] [place], [address] HGB Normal 12.0-15.0 [facility] Comment on above: Result Comment: Canc elled via OM: Order cancelled - Patient discharged Performed By: #### L 100.0100, L500.2500 ####[facility] [address] [place], [address] MCH Normal 27.0-32.0 [facility] Comment on above: Result Comment: Canc elled via OM: Order cancelled - Patient discharged Performed By: #### L 100.0100, L500.2500 ####[facility] [address] [place], [address] MCHC Normal 32-36 [facility] Comment on above: Result Comment: Canc elled via OM: Order cancelled - Patient discharged Performed By: #### L 100.0100, L500.2500 ####[facility] [address] [place], [address] MCV Normal 81-99 [facility] Comment on above: Result Comment: Canc elled via OM: Order cancelled - Patient discharged Performed By: #### L 100.0100, L500.2500 ####[facility] [address] [place], [address] NEUT% Normal 47-70 [facility] Comment on above: Result Comment: Canc elled via OM: Order cancelled - Patient discharged Performed By: #### L 100.0100, L500.2500 ####[facility] [address] [place], [address] PLT Normal 150-450 [facility] Comment on above: Result Comment: Canc elled via OM: Order cancelled - Patient discharged Performed By: #### L 100.0100, L500.2500 ####[facility] [address] [place], [address] RBC Normal 4.2-5.4 [facility] Comment on above: Result Comment: Canc elled via OM: Order cancelled - Patient discharged Performed By: #### L 100.0100, L500.2500 ####[facility] [address] [place], [address] RDW CV Normal 11.6-14.6 [facility] Comment on above: Result Comment: Canc elled via OM: Order cancelled - Patient discharged Performed By: #### L 100.0100, L500.2500 ####[facility] [address] [place], [address] RDW SD Normal 35.1-43.9 [facility] Comment on above: Result Comment: Canc elled via OM: Order cancelled - Patient discharged Performed By: #### L 100.0100, L500.2500 ####[facility] [address] [place], [address] WBC Normal 4.4-11.0 [facility] Comment on above: Result Comment: Canc elled via OM: Order cancelled - Patient discharged Performed By: #### L 100.0100, L500.2500 ####[facility] [address] [place], [address] Absolute lymphocyte countOrd ered By: Daya Morgan on 03-30-2025 Lymphocytes Auto (Unsp spec) [#/Vol] 1.33 10*3/uL 0.83-4.51 [facility] Absolute neutrophil countOrd ered By: Daya Morgan on 03-30-2025 Neutrophils (Bld) [#/Vol] 6.3 10*3/uL 2.0-7.7 [facility] Anion gap in Serum or Plasma Ordered By: aDya Morgan on 03-30-2025 Anion gap [Moles/Vol] 9 mmol/L 5-15 [facility] Automated lymphocyte count a s percentage of total leukocytesOrdered By: Daya Morgan on 03-30-2025 Lymphocytes/100 WBC Auto (Unsp spec) 15.4 % Low 19-41 [facility] BUN/creatinine ratioOrdered By: Daya Morgan on 03-30-2025 Urea nitrogen/Creatinine [Mass ratio] 14.8 mg/mg 10-20 [facility] Basophil percentageOrdered B y: Daya Morgan on 03-30-2025 Basophils/100 WBC (Bld) 0.7 % 0-1 [facility] Carbon dioxide, total [Moles /volume] in Central venous bloodOrdered By: Daya Morgan on 03-30-2025 CO2 [Moles/Vol] 28.0 mmol/L 21.0-32.0 [facility] Chloride assayOrdered By: Will Morgan on 03-30-2025 Chloride [Moles/Vol] 105 mmol/L 98-108 [facility] Eosinophil percentageOrdered By: Daya Morgan on 03-30-2025 Eosinophils/100 WBC (Bld) 1.4 % 0-5 [facility] Erythrocyte distribution wid th ratioOrdered By: Daya Morgan on 03-30-2025 Erythrocyte distribution width (RBC) [Ratio] 14.2 % 11.6-14.6 [facility] Erythrocyte distribution wid th standard deviationOrdered By: Daya Morgan on 03-30-2025 Erythrocyte distribution width (RBC) [Ratio] 48.0 fl High 35.1-43.9 [facility] Glomerular filtration rate ( GFR) estimation/1.73 sq m using serum, plasma, or whole bOrdered By: Daya Morgan on 03-30-2025 GFR/1.73 sq M.predicted among non-blacks MDRD (S/P/Bld) [Vol rate/Area] 70 mL/min/{1.73_m2} >60 [facility] Comment on above: mL/min/1.73m2 CKD-EP I Creatinine Equation (2020) Hematocrit Auto (Bld) [Volum e fraction]Ordered By: Daya Morgan on 03-30-2025 Hematocrit (Bld) [Volume fraction] 34.1 % Low 37-47 [facility] Hemoglobin measurementOrdere d By: Daya Morgan on 03-30-2025 Hemoglobin (Bld) [Mass/Vol] 11.3 g/dL Low 12.0-15.0 [facility] Immature granulocytes/100 WB C Auto (Bld)Ordered By: Daya Morgan on 03-30-2025 Immature granulocytes/100 WBC (Bld) 0.900 % 0.0-0.9 [facility] Comment on above: IG% - Immature Granu locytes (promyelocytes, myelocytes and metamyelocytes) > 1% indicates that a LEFT SHIFT is Present. MCV (mean corpuscular volume ) determinationOrdered By: Daya Morgan on 03-30-2025 MCV (RBC) [Entitic vol] 93.7 fL 81-99 [facility] Mean corpuscular hemoglobin (MCH) determinationOrdered By: Daya Morgan on 03-30-2025 MCH (RBC) [Entitic mass] 31.0 pg 27.0-32.0 [facility] Mean corpuscular hemoglobin concentration (MCHC) determinationOrdered By: Daya Morgan on 03-30-2025 MCHC (RBC) [Mass/Vol] 33.1 g/dL 32-36 [facility] Mean platelet volume determi nationOrdered By: Daya Morgan on 03-30-2025 Platelet mean volume (Bld) [Entitic vol] 10.8 fL 6.2-12.0 [facility] Monocyte percentageOrdered B y: Daya Morgan on 03-30-2025 Monocytes/100 WBC (Bld) 8.2 % 0-10 [facility] Neutrophil percentageOrdered By: Daya Morgan on 03-30-2025 Neutrophils/100 WBC (Bld) 73.4 % High 47-70 [facility] Nucleated red blood cell per centageOrdered By: Daya Morgan on 03-30-2025 Nucleated RBC/100 WBC (Bld) [Ratio] 0 % 0-5 [facility] Platelet countOrdered By: Will Morgan on 03-30-2025 Platelets (Bld) [#/Vol] 160 10*3/uL 150-450 [facility] Potassium measurement (mass/ volume)Ordered By: Daya Morgan on 03-30-2025 Potassium (Unsp spec) [Mass/Vol] 3.6 mmol/L 3.3-5.1 [facility] RBC Auto (Bld) [#/Vol]Ordere d By: Daya Morgan on 03-30-2025 RBC (Bld) [#/Vol] 3.64 10*6/uL Low 4.2-5.4 [facility] Serum creatinine measurement (mass/volume)Ordered By: Daya Morgan on 03-30-2025 Creatinine [Mass/Vol] 0.83 mg/dL 0.70-1.20 [facility] Serum glucose measurement (m ass/volume)Ordered By: Daya Morgan on 03-30-2025 Glucose [Mass/Vol] 91 mg/dL 70-99 [facility] Serum or plasma calcium thomas urement (mass/volume)Ordered By: Daya Morgan on 03-30-2025 Calcium [Mass/Vol] 9.0 mg/dL 7.6-11.0 [facility] Serum or plasma urea nitroge n measurement (mass/volume)Ordered By: Daya Morgan on 03-30-2025 Urea nitrogen [Mass/Vol] 12 mg/dL - [facility] Sodium levelOrdered By: Katarina Morgan on 03-30-2025 Sodium [Moles/Vol] 141 mmol/L 133-145 [facility] White blood cell (WBC) count Ordered By: Daya Morgan on 03-30-2025 WBC (Bld) [#/Vol] 8.6 10*3/uL 4.4-11.0 [facility] Basic Metabolic Profile (BMP )on 03-26-2025 BUN Normal - [facility] Comment on above: Result Comment: Canc elled via OM: Order cancelled - Patient discharged Performed By: #### L 100.0100, L500.2500 ####[facility] [address] [place], [address] BUN/CRE Normal - [facility] Comment on above: Result Comment: Canc elled via OM: Order cancelled - Patient discharged Performed By: #### L 100.0100, L500.2500 ####[facility] [address] [place], [address] Calcium Normal 7.6-11.0 [facility] Comment on above: Result Comment: Canc elled via OM: Order cancelled - Patient discharged Performed By: #### L 100.0100, L500.2500 ####[facility] [address] [place], [address] CL Normal 98-108 [facility] Comment on above: Result Comment: Canc elled via OM: Order cancelled - Patient discharged Performed By: #### L 100.0100, L500.2500 ####[facility] [address] [place], [address] CO2 Normal 21.0-32.0 [facility] Comment on above: Result Comment: Canc elled via OM: Order cancelled - Patient discharged Performed By: #### L 100.0100, L500.2500 ####[facility] [address] [place], [address] CREAT,SERUM Normal 0.70-1.20 [facility] Comment on above: Result Comment: Canc elled via OM: Order cancelled - Patient discharged Performed By: #### L 100.0100, L500.2500 ####[facility] [address] [place], [address] eGFR Normal >60 [facility] Comment on above: Result Comment: Canc elled via OM: Order cancelled - Patient discharged Performed By: #### L 100.0100, L500.2500 ####[facility] [address] [place], [address] GAP Normal 5-15 [facility] Comment on above: Result Comment: Canc elled via OM: Order cancelled - Patient discharged Performed By: #### L 100.0100, L500.2500 ####[facility] [address] [place], [address] GLU Normal 70-99 [facility] Comment on above: Result Comment: Canc elled via OM: Order cancelled - Patient discharged Performed By: #### L 100.0100, L500.2500 ####[facility] [address] [place], [address] Potassium Normal 3.3-5.1 [facility] Comment on above: Result Comment: Canc elled via OM: Order cancelled - Patient discharged Performed By: #### L 100.0100, L500.2500 ####[facility] [address], [address] Basic Metabolic Profile (BMP) Normal 133-145 [facility] Comment on above: Result Comment: Canc elled via OM: Order cancelled - Patient discharged Performed By: #### L 100.0100, L500.2500 ####[facility] [address] [place], [address] CBC W/Diff, Automatedon 05-0 8-2024 Absolute Neut Normal 2.0-7.7 [facility] Comment on above: Result Comment: Canc elled via OM: Order cancelled - Patient discharged Performed By: #### L 100.0100, L500.2500 ####[facility] [address] [place], [address] HCT Normal 37-47 [facility] Comment on above: Result Comment: Canc elled via OM: Order cancelled - Patient discharged Performed By: #### L 100.0100, L500.2500 ####[facility] [address] [place], [address] HGB Normal 12.0-15.0 [facility] Comment on above: Result Comment: Canc elled via OM: Order cancelled - Patient discharged Performed By: #### L 100.0100, L500.2500 ####[facility] [address] [place], [address] MCH Normal 27.0-32.0 [facility] Comment on above: Result Comment: Canc elled via OM: Order cancelled - Patient discharged Performed By: #### L 100.0100, L500.2500 ####[facility] [address] [place], [address] MCHC Normal 32-36 [facility] Comment on above: Result Comment: Canc elled via OM: Order cancelled - Patient discharged Performed By: #### L 100.0100, L500.2500 ####[facility] [address] [place], [address] MCV Normal 81-99 [facility] Comment on above: Result Comment: Canc elled via OM: Order cancelled - Patient discharged Performed By: #### L 100.0100, L500.2500 ####[facility] [address], [address] NEUT% Normal 47-70 [facility] Comment on above: Result Comment: Canc elled via OM: Order cancelled - Patient discharged Performed By: #### L 100.0100, L500.2500 ####[facility] [address] [place], [address] PLT Normal 150-450 [facility] Comment on above: Result Comment: Canc elled via OM: Order cancelled - Patient discharged Performed By: #### L 100.0100, L500.2500 ####[facility] [address] [place], [address] RBC Normal 4.2-5.4 [facility] Comment on above: Result Comment: Canc elled via OM: Order cancelled - Patient discharged Performed By: #### L 100.0100, L500.2500 ####[facility] [address] [place], [address] RDW CV Normal 11.6-14.6 [facility] Comment on above: Result Comment: Canc elled via OM: Order cancelled - Patient discharged Performed By: #### L 100.0100, L500.2500 ####[facility] [address] [place], [address] RDW SD Normal 35.1-43.9 [facility] Comment on above: Result Comment: Canc elled via OM: Order cancelled - Patient discharged Performed By: #### L 100.0100, L500.2500 ####[facility] [address] [place], [address] WBC Normal 4.4-11.0 [facility] Comment on above: Result Comment: Canc elled via OM: Order cancelled - Patient discharged Performed By: #### L 100.0100, L500.2500 ####[facility] [address] [place], [address] Absolute lymphocyte countOrd ered By: elsa Gusman on 03-23-2025 Lymphocytes Auto (Unsp spec) [#/Vol] 1.22 10*3/uL 0.83-4.51 [facility] Absolute neutrophil countOrd ered By: macariorentonmaxim Gusman on 03-23-2025 Neutrophils (Bld) [#/Vol] 6.8 10*3/uL 2.0-7.7 [facility] Anion gap in Serum or Plasma Ordered By: Adele Gusman on 03-23-2025 Anion gap [Moles/Vol] 10 mmol/L 5-15 [facility] Automated lymphocyte count a s percentage of total leukocytesOrdered By: Adele Gusman on 03-23-2025 Lymphocytes/100 WBC Auto (Unsp spec) 13.5 % Low 19-41 [facility] BUN/creatinine ratioOrdered By: macariorentonmaxim Gusman on 03-23-2025 Urea nitrogen/Creatinine [Mass ratio] 21.5 mg/mg High 10-20 [facility] Basophil percentageOrdered B y: Adele Gusman on 03-23-2025 Basophils/100 WBC (Bld) 0.4 % 0-1 [facility] Bilirubin, totalOrdered By: Adele Gusman on 03-23-2025 Bilirubin [Mass/Vol] 1.28 mg/dL 0.00-1.30 [facility] Carbon dioxide, total [Moles /volume] in Central venous bloodOrdered By: Adele Gusman on 03-23-2025 CO2 [Moles/Vol] 24.4 mmol/L 21.0-32.0 [facility] Chloride assayOrdered By: Jennifer Gusman on 03-23-2025 Chloride [Moles/Vol] 104 mmol/L 98-108 [facility] Eosinophil percentageOrdered By: Adele Gusman on 03-23-2025 Eosinophils/100 WBC (Bld) 1.9 % 0-5 [facility] Erythrocyte distribution wid th ratioOrdered By: Adele Gusman on 03-23-2025 Erythrocyte distribution width (RBC) [Ratio] 15.0 % High 11.6-14.6 [facility] Erythrocyte distribution wid th standard deviationOrdered By: macariorentonmaxim Gusman on 03-23-2025 Erythrocyte distribution width (RBC) [Ratio] 50.8 fl High 35.1-43.9 [facility] Glomerular filtration rate ( GFR) estimation/1.73 sq m using serum, plasma, or whole bOrdered By: [facility] on 03-23-2025 GFR/1.73 sq M.predicted among non-blacks MDRD (S/P/Bld) [Vol rate/Area] 75 mL/min/{1.73_m2} >60 [facility] Comment on above: mL/min/1.73m2 CKD-EP I Creatinine Equation (2020) Hematocrit Auto (Bld) [Volum e fraction]Ordered By: Adele Gusman on 03-23-2025 Hematocrit (Bld) [Volume fraction] 34.2 % Low 37-47 [facility] Hemoglobin measurementOrdere d By: Adele Gusman on 03-23-2025 Hemoglobin (Bld) [Mass/Vol] 11.6 g/dL Low 12.0-15.0 [facility] Immature granulocytes/100 WB C Auto (Bld)Ordered By: Adele Gusman 03-23-2025 Immature granulocytes/100 WBC (Bld) 1.100 % High 0.0-0.9 [facility] Comment on above: IG% - Immature Granu locytes (promyelocytes, myelocytes and metamyelocytes) > 1% indicates that a LEFT SHIFT is Present. Laboratory - Chemistry and C hemistry - challengeOrdered By: Adele Gusman on 03-23-2025 AST [Catalytic activity/Vol] 16 U/L <32 [facility] MCV (mean corpuscular volume ) determinationOrdered By: Adele Gusman on 03-23-2025 MCV (RBC) [Entitic vol] 91.9 fL 81-99 [facility] Mean corpuscular hemoglobin (MCH) determinationOrdered By: Adele Gusman on 03-23-2025 MCH (RBC) [Entitic mass] 31.2 pg 27.0-32.0 [facility] Mean corpuscular hemoglobin concentration (MCHC) determinationOrdered By: Adele Gusman on 03-23-2025 MCHC (RBC) [Mass/Vol] 33.9 g/dL 32-36 [facility] Mean platelet volume determi nationOrdered By: Adele Gusman on 03-23-2025 Platelet mean volume (Bld) [Entitic vol] 10.1 fL 6.2-12.0 [facility] Monocyte percentageOrdered B y: Adele Gusman on 03-23-2025 Monocytes/100 WBC (Bld) 7.8 % 0-10 [facility] Neutrophil percentageOrdered By: macariorentonmaxim Gusman on 03-23-2025 Neutrophils/100 WBC (Bld) 75.3 % High 47-70 [facility] Nucleated red blood cell per centageOrdered By: Adele Gusman on 03-23-2025 Nucleated RBC/100 WBC (Bld) [Ratio] 0 % 0-5 [facility] Platelet countOrdered By: Jennifer Gusman on 03-23-2025 Platelets (Bld) [#/Vol] 241 10*3/uL 150-450 [facility] Potassium measurement (mass/ volume)Ordered By: Adele Gusman on 03-23-2025 Potassium (Unsp spec) [Mass/Vol] 3.5 mmol/L 3.3-5.1 [facility] RBC Auto (Bld) [#/Vol]Ordere d By: Adele Gusman on 03-23-2025 RBC (Bld) [#/Vol] 3.72 10*6/uL Low 4.2-5.4 [facility] Serum creatinine measurement (mass/volume)Ordered By: Adele Gusman on 03-23-2025 Creatinine [Mass/Vol] 0.78 mg/dL 0.70-1.20 [facility] Serum globulin measurementOr dered By: Adele Gusman on 03-23-2025 Globulin (S) [Mass/Vol] 2.3 g/dL 2.2-4.2 [facility] Serum glucose measurement (m ass/volume)Ordered By: Adele Gusman on 03-23-2025 Glucose [Mass/Vol] 95 mg/dL 70-99 [facility] Serum or plasma alanine tillman otransferase (ALT) measurementOrdered By: Adele Gusman on 03-23-2025 ALT [Catalytic activity/Vol] 6 U/L <35 [facility] Serum or plasma albumin thomas urement (mass/volume)Ordered By: Adele Gusman on 03-23-2025 Albumin [Mass/Vol] 3.5 g/dL 3.4-4.8 [facility] Serum or plasma albumin/glob ulin mass ratioOrdered By: Adele Gusman on 03-23-2025 Albumin/Globulin [Mass ratio] 1.5 {ratio} 0.9-2.4 [facility] Serum or plasma alkaline mariah sphatase measurementOrdered By: Adele Gusman on 03-23-2025 ALP [Catalytic activity/Vol] 135 U/L High 35-104 [facility] Serum or plasma calcium thomas urement (mass/volume)Ordered By: Adele Gusman on 03-23-2025 Calcium [Mass/Vol] 9.0 mg/dL 7.6-11.0 [facility] Serum or plasma urea nitroge n measurement (mass/volume)Ordered By: Adele Gusman on 03-23-2025 Urea nitrogen [Mass/Vol] 17 mg/dL 4-19 [facility] Sodium levelOrdered By: Sharlene Gusman on 03-23-2025 Sodium [Moles/Vol] 139 mmol/L 133-145 [facility] Total proteinOrdered By: Amadou Gusman on 03-23-2025 Protein [Mass/Vol] 5.8 g/dL Low 5.9-8.4 [facility] White blood cell (WBC) count Ordered By: Adele Gusman on 03-23-2025 WBC (Bld) [#/Vol] 9.1 10*3/uL 4.4-11.0 [facility] Absolute lymphocyte countOrd ered By: Garfield Sotomayorok on 03-19-2025 Lymphocytes Auto (Unsp spec) [#/Vol] 1.65 10*3/uL 0.83-4.51 [facility] Absolute neutrophil countOrd ered By: Garfield Srinath on 03-19-2025 Neutrophils (Bld) [#/Vol] 5.7 10*3/uL 2.0-7.7 [facility] Anion gap in Serum or Plasma Ordered By: Garfield Yo on 03-19-2025 Anion gap [Moles/Vol] 7 mmol/L 5-15 [facility] Automated lymphocyte count a s percentage of total leukocytesOrdered By: Garfield Yo on 03-19-2025 Lymphocytes/100 WBC Auto (Unsp spec) 19.7 % 19-41 [facility] BUN/creatinine ratioOrdered By: Garfield Yo on 03-19-2025 Urea nitrogen/Creatinine [Mass ratio] 17.9 mg/mg 10- [facility] Basic Metabolic Profile (BMP )on 03-19-2025 BUN/CRE 17.9 RATIO Normal - [facility] Comment on above: Performed By: #### L 100.0100, L500.2500 ####[facility] [address] [place], [address] Calcium [Mass/Vol] 8.8 mg/dL Normal 7.6-11.0 [facility] Comment on above: Performed By: #### L 100.0100, L500.2500 ####[facility] [address] [place], [address] Chloride [Moles/Vol] 107 mmol/L Normal 98-108 [facility] Comment on above: Performed By: #### L 100.0100, L500.2500 ####[facility] [address] [place], [address] CO2 [Moles/Vol] 26.6 mmol/L Normal 21.0-32.0 [facility] Comment on above: Performed By: #### L 100.0100, L500.2500 ####[facility] [address] [place], [address] Creatinine [Mass/Vol] 1.02 mg/dL Normal 0.70-1.20 [facility] Comment on above: Performed By: #### L 100.0100, L500.2500 ####[facility] [address] [place], [address] ECRCL 32.95 ml/min Low 50-250 [facility] Comment on above: Performed By: #### L 100.0100, L500.2500 ####[facility] [address] [place], [address] GAP 7 Normal 5-15 [facility] Comment on above: Performed By: #### L 100.0100, L500.2500 ####[facility] [address] [place], [address] GFR/1.73 sq M.predicted among non-blacks MDRD (S/P/Bld) [Vol rate/Area] 54 mL/min/{1.73_m2} Low >60 [facility] Comment on above: Result Comment: mL/m in/1.73m2 CKD-EPI Creatinine Equation (2020) Performed By: #### L 100.0100, L500.2500 ####[facility] [address] [place], [address] Glucose [Mass/Vol] 92 mg/dL Normal 70-99 [facility] Comment on above: Performed By: #### L 100.0100, L500.2500 ####[facility] [address] [place], [address] Potassium [Moles/Vol] 4.1 mmol/L Normal 3.3-5.1 [facility] Comment on above: Result Comment: Hemo lysis present, Results??could be affected.?? Performed By: #### L 100.0100, L500.2500 ####[facility] [address] [place], [address] Sodium [Moles/Vol] 141 mmol/L Normal 133-145 [facility] Comment on above: Performed By: #### L 100.0100, L500.2500 ####[facility] [address] [place], [address] Urea nitrogen [Mass/Vol] 18 mg/dL Normal 4-19 [facility] Comment on above: Performed By: #### L 100.0100, L500.2500 ####[facility] [address] [place], [address] Basophil percentageOrdered B y: Garfield Yo on 03-19-2025 Basophils/100 WBC (Bld) 0.6 % 0-1 [facility] CBC W/Diff, Automatedon Absolute Lymph 1.65 X10 3/uL Normal 0.83-4.51 [facility] Comment on above: Performed By: #### L 100.0100, L500.2500 ####[facility] [address] [place], [address] Absolute Neut 5.7 X10 3/uL Normal 2.0-7.7 [facility] Comment on above: Performed By: #### L 100.0100, L500.2500 ####[facility] [address] [place], [address] Basophils/100 WBC (Bld) 0.6 % Normal 0-1 [facility] Comment on above: Performed By: #### L 100.0100, L500.2500 ####[facility] [address] [place], [address] Eosinophils/100 WBC (Bld) 2.1 % Normal 0-5 [facility] Comment on above: Performed By: #### L 100.0100, L500.2500 ####[facility] [address] [place], [address] Erythrocyte distribution width (RBC) [Ratio] 15.7 % High 11.6-14.6 [facility] Comment on above: Performed By: #### L 100.0100, L500.2500 ####[facility] [address] [place], [address] Hematocrit (Bld) [Volume fraction] 30.9 % Low 37-47 [facility] Comment on above: Performed By: #### L 100.0100, L500.2500 ####[facility] [address] [place], [address] Hemoglobin (Bld) [Mass/Vol] 10.4 g/dL Low 12.0-15.0 [facility] Comment on above: Performed By: #### L 100.0100, L500.2500 ####[facility] [address] [place], [address] IG% 1.600 High 0.0-0.9 [facility] Comment on above: Result Comment: IG% - Immature Granulocytes (promyelocytes, myelocytes andmetamyelocytes) > 1% indicates that a LEFT SHIFT is Present. Performed By: #### L 100.0100, L500.2500 ####[facility] [address] [place], [address] Lymphocytes/100 WBC (Bld) 19.7 % Normal 19-41 [facility] Comment on above: Performed By: #### L 100.0100, L500.2500 ####[facility] [address] [place], [address] MCH (RBC) [Entitic mass] 31.3 pg Normal 27.0-32.0 [facility] Comment on above: Performed By: #### L 100.0100, L500.2500 ####[facility] [address] [place], [address] MCHC (RBC) [Mass/Vol] 33.7 g/dL Normal 32-36 [facility] Comment on above: Performed By: #### L 100.0100, L500.2500 ####[facility] [address] [place], [address] MCV (RBC) [Entitic vol] 93.1 fL Normal 81-99 [facility] Comment on above: Performed By: #### L 100.0100, L500.2500 ####[facility] [address] [place], [address] Monocytes/100 WBC (Bld) 8.5 % Normal 0-10 [facility] Comment on above: Performed By: #### L 100.0100, L500.2500 ####[facility] [address] [place], [address] Neutrophils/100 WBC (Bld) 67.5 % Normal 47-70 [facility] Comment on above: Performed By: #### L 100.0100, L500.2500 ####[facility] [address] [place], [address] Nucleated RBC (Bld) [#/Vol] 0 10*3/uL Normal 0-5 [facility] Comment on above: Performed By: #### L 100.0100, L500.2500 ####[facility] [address] [place], [address] Platelet mean volume (Bld) [Entitic vol] 9.1 fL Normal 6.2-12.0 [facility] Comment on above: Performed By: #### L 100.0100, L500.2500 ####[facility] [address] [place], [address] Platelets (Bld) [#/Vol] 262 10*3/uL Normal 150-450 [facility] Comment on above: Performed By: #### L 100.0100, L500.2500 ####[facility] [address] [place], [address] RBC (Bld) [#/Vol] 3.32 10*6/uL Low 4.2-5.4 [facility] Comment on above: Performed By: #### L 100.0100, L500.2500 ####[facility] [address] [place], [address] RDW SD 53.2 fl High 35.1-43.9 [facility] Comment on above: Performed By: #### L 100.0100, L500.2500 ####[facility] [address] [place], [address] WBC (Bld) [#/Vol] 8.4 10*3/uL Normal 4.4-11.0 [facility] Comment on above: Performed By: #### L 100.0100, L500.2500 ####[facility] [address] [place], [address] CNPNon 03-19-2025 [facility] Telephone (MOODY) MICHAELA BRANDT ([id number]) 1940 F Date Time Provider Department 03/19/25 KENTRELL MONTGOMERY During your visit today, we recorded the following information about you: Kentrell Montgomery MSW 03/19/2025 3:34 PM Signed Sw spoke with patient daughter Maribeth. Maribeth notes that patient is currently at [facility] right now. Transitioned there today. Maribeth notes that she needs to cancel patient appt with Dr. Santiago tomorrow. Thomas notes that she will send message to Dr. Santiago regarding this need. Maribeth also noted that she is going to send My Chart message as well in regards to cancelling appt. Maribeth notes that the hospital had encouraged patient to go to [facility] for further care after being in [facility]. Daughter is trying to get with admissions at [facility] in regards to them saying that she is going there for 30 days and being placed in LTC and not Rehab. Daughter also notes that she has an appt next week with [facility] Chemist for financial planning. Maribeth also noted that she would like patient to see Dr. Santiago if and when she leaves [place]. While in [place], patient will be followed by their provider. Sw did encourage patient daughter to also reach out to Lala Huntley and [facility] for further support guidance regarding LTC planning. will forward note to Dr. Santiago and her office in regards to appt cancellation need for tomorrow. Mckenzie Lombardo LPN 03/19/2025 4:00 PM Signed Canceled appointment for tomorrow per patients daughter request. Mckenize Lombardo LPN March 19, 2025 4:00 PM Dillan Santiago MD 03/19/2025 4:55 PM Signed Thanks and noted Regards, Kentrell Herrera MD, [employer] ESTIMATOR 03/20/2025 3:12 PM Signed Maribeth reached out to in regards to question about patient seeing [facility] provider and liking to keep Dr. Santiago. Maribeth notes that she feels like patient plan at this time will be to stay at [facility] for 30 days. Maribeth and this Sw discussed speaking with [facility] admissions and in regards to consent to sign for them to share info with Dr. Santiago. Maribeth notes that she is going to try and speak with admissions today as she wants to see what happened with patient transitioning to rehab services instead of LTC. Maribeth notes that she still has appt next week with [facility]ist as well. Maribeth notes that she is also going to check with SW at [facility] in regards to counselor option for patient. This Sw is not aware of counseling service that provides mental health services at [place]. Daughter notes that she will ask about mental health treatment options there at [place]. Daughter is concerned about patient being "depressed" and wanting to obtain support for patient [...] Encounter Status:Closed by GABI MCELROY on 03/19/25 [facility] Carbon dioxide, total [Moles /volume] in Central venous bloodOrdered By: Garfield Yo on 03-19-2025 CO2 [Moles/Vol] 26.6 mmol/L 21.0-32.0 [facility] Chloride assayOrdered By: Kristopher Yo on 03-19-2025 Chloride [Moles/Vol] 107 mmol/L 98-108 [facility] Eosinophil percentageOrdered By: Garfield Yo on 03-19-2025 Eosinophils/100 WBC (Bld) 2.1 % 0-5 [facility] Erythrocyte distribution wid th ratioOrdered By: Garfield Yo on 03-19-2025 Erythrocyte distribution width (RBC) [Ratio] 15.7 % High 11.6-14.6 [facility] Erythrocyte distribution wid th standard deviationOrdered By: Garfield Yo 03-19-2025 Erythrocyte distribution width (RBC) [Ratio] 53.2 fl High 35.1-43.9 [facility] Glomerular filtration rate ( GFR) estimation/1.73 sq m using serum, plasma, or whole bOrdered By: Garfield Yo on 03-19-2025 GFR/1.73 sq M.predicted among non-blacks MDRD (S/P/Bld) [Vol rate/Area] 54 mL/min/{1.73_m2} Low >60 [facility] Comment on above: mL/min/1.73m2 CKD-EP I Creatinine Equation (2020) Hematocrit Auto (Bld) [Volum e fraction]Ordered By: Garfield Yo 03-19-2025 Hematocrit (Bld) [Volume fraction] 30.9 % Low 37-47 [facility] Hemoglobin measurementOrdere d By: Garfield Yo on 03-19-2025 Hemoglobin (Bld) [Mass/Vol] 10.4 g/dL Low 12.0-15.0 [facility] Immature granulocytes/100 WB C Auto (Bld)Ordered By: Garfield Yo 03-19-2025 Immature granulocytes/100 WBC (Bld) 1.600 % High 0.0-0.9 [facility] Comment on above: IG% - Immature Granu locytes (promyelocytes, myelocytes and metamyelocytes) > 1% indicates that a LEFT SHIFT is Present. MCV (mean corpuscular volume ) determinationOrdered By: Garfield Yo 03-19-2025 MCV (RBC) [Entitic vol] 93.1 fL 81-99 [facility] Mean corpuscular hemoglobin (MCH) determinationOrdered By: Grafield Yo on 03-19-2025 MCH (RBC) [Entitic mass] 31.3 pg 27.0-32.0 [facility] Mean corpuscular hemoglobin concentration (MCHC) determinationOrdered By: Garfield Yo on 03-19-2025 MCHC (RBC) [Mass/Vol] 33.7 g/dL 32-36 [facility] Mean platelet volume determi nationOrdered By: Garfield Yo on 03-19-2025 Platelet mean volume (Bld) [Entitic vol] 9.1 fL 6.2-12.0 [facility] Monocyte percentageOrdered B y: Garfield Yo on 03-19-2025 Monocytes/100 WBC (Bld) 8.5 % 0-10 [facility] Neutrophil percentageOrdered By: Garfield Yo on 03-19-2025 Neutrophils/100 WBC (Bld) 67.5 % 47-70 [facility] Nucleated red blood cell per centageOrdered By: Garfield Yo on 03-19-2025 Nucleated RBC/100 WBC (Bld) [Ratio] 0 % 0-5 [facility] Platelet countOrdered By: Kristopher Yo on 03-19-2025 Platelets (Bld) [#/Vol] 262 10*3/uL 150-450 [facility] Potassium measurement (mass/ volume)Ordered By: Garfeild Yo on 03-19-2025 Potassium (Unsp spec) [Mass/Vol] 4.1 mmol/L 3.3-5.1 [facility] Comment on above: Hemolysis present, R esults could be affected. RBC Auto (Bld) [#/Vol]Ordere d By: Garfield Yo on 03-19-2025 RBC (Bld) [#/Vol] 3.32 10*6/uL Low 4.2-5.4 [facility] Serum creatinine measurement (mass/volume)Ordered By: Garfield Yo on 03-19-2025 Creatinine [Mass/Vol] 1.02 mg/dL 0.70-1.20 [facility] Serum glucose measurement (m ass/volume)Ordered By: Garfield Yo on 03-19-2025 Glucose [Mass/Vol] 92 mg/dL 70-99 [facility] Serum or plasma calcium thomas urement (mass/volume)Ordered By: Garfield Yo on 03-19-2025 Calcium [Mass/Vol] 8.8 mg/dL 7.6-11.0 [facility] Serum or plasma urea nitroge n measurement (mass/volume)Ordered By: Garfield Yo on 03-19-2025 Urea nitrogen [Mass/Vol] 18 mg/dL 4-19 [facility] Sodium levelOrdered By: Garfield Yo on 03-19-2025 Sodium [Moles/Vol] 141 mmol/L 133-145 [facility] White blood cell (WBC) count Ordered By: Garfield Yo on 03-19-2025 WBC (Bld) [#/Vol] 8.4 10*3/uL 4.4-11.0 [facility] Basic Metabolic Profile (BMP )on 03-12-2025 BUN/CRE 19.2 RATIO Normal 10-20 [facility] Comment on above: Performed By: #### L 100.0100, L500.2500 ####[facility] [address] [place], [address] Calcium [Mass/Vol] 8.6 mg/dL Normal 7.6-11.0 [facility] Comment on above: Performed By: #### L 100.0100, L500.2500 ####[facility] [address] [place], [address] Chloride [Moles/Vol] 105 mmol/L Normal 98-108 [facility] Comment on above: Performed By: #### L 100.0100, L500.2500 ####[facility] [address] [place], [address] CO2 [Moles/Vol] 26.6 mmol/L Normal 21.0-32.0 [facility] Comment on above: Performed By: #### L 100.0100, L500.2500 ####[facility] [address] [place], [address] Creatinine [Mass/Vol] 0.80 mg/dL Normal 0.70-1.20 [facility] Comment on above: Performed By: #### L 100.0100, L500.2500 ####[facility] [address] [place], [address] ECRCL 42.05 ml/min Low 50-250 [facility] Comment on above: Performed By: #### L 100.0100, L500.2500 ####[facility] [address] [place], [address] GAP 9 Normal 5-15 [facility] Comment on above: Performed By: #### L 100.0100, L500.2500 ####[facility] [address] [place], [address] GFR/1.73 sq M.predicted among non-blacks MDRD (S/P/Bld) [Vol rate/Area] 73 mL/min/{1.73_m2} Normal >60 [facility] Comment on above: Result Comment: mL/m in/1.73m2 CKD-EPI Creatinine Equation (2020) Performed By: #### L 100.0100, L500.2500 ####[facility] [address] [place], [address] Glucose [Mass/Vol] 90 mg/dL Normal 70-99 [facility] Comment on above: Performed By: #### L 100.0100, L500.2500 ####[facility] [address] [place], [address] Potassium [Moles/Vol] 3.9 mmol/L Normal 3.3-5.1 [facility] Comment on above: Result Comment: Hemo lysis present, Results??could be affected.?? Performed By: #### L 100.0100, L500.2500 ####[facility] [address] [place], [address] Sodium [Moles/Vol] 140 mmol/L Normal 133-145 [facility] Comment on above: Performed By: #### L 100.0100, L500.2500 ####[facility] [address] [place], [address] Urea nitrogen [Mass/Vol] 15 mg/dL Normal 4-19 [facility] Comment on above: Performed By: #### L 100.0100, L500.2500 ####[facility] [address] [place], [address] CBC W/Diff, Automatedon 04-2 -2024 Absolute Lymph 1.55 X10 3/uL Normal 0.83-4.51 [facility] Comment on above: Performed By: #### L 100.0100, L500.2500 ####[facility] [address] [place], [address] Absolute Neut 7.8 X10 3/uL High 2.0-7.7 [facility] Comment on above: Performed By: #### L 100.0100, L500.2500 ####[facility] [address] [place], [address] Basophils/100 WBC (Bld) 0.9 % Normal 0-1 [facility] Comment on above: Performed By: #### L 100.0100, L500.2500 ####[facility] [address] [place], [address] Eosinophils/100 WBC (Bld) 2.5 % Normal 0-5 [facility] Comment on above: Performed By: #### L 100.0100, L500.2500 ####[facility] [address] [place], [address] Erythrocyte distribution width (RBC) [Ratio] 16.0 % High 11.6-14.6 [facility] Comment on above: Performed By: #### L 100.0100, L500.2500 ####[facility] [address] [place], [address] Hematocrit (Bld) [Volume fraction] 28.8 % Low 37-47 [facility] Comment on above: Performed By: #### L 100.0100, L500.2500 ####[facility] [address] [place], [address] Hemoglobin (Bld) [Mass/Vol] 9.5 g/dL Low 12.0-15.0 [facility] Comment on above: Performed By: #### L 100.0100, L500.2500 ####[facility] [address] [place], [address] IG% 2.000 High 0.0-0.9 [facility] Comment on above: Result Comment: IG% - Immature Granulocytes (promyelocytes, myelocytes andmetamyelocytes) > 1% indicates that a LEFT SHIFT is Present. Performed By: #### L 100.0100, L500.2500 ####[facility] [address] [place], [address] Lymphocytes/100 WBC (Bld) 14.7 % Low 19-41 [facility] Comment on above: Performed By: #### L 100.0100, L500.2500 ####[facility] [address] [place], [address] MCH (RBC) [Entitic mass] 30.7 pg Normal 27.0-32.0 [facility] Comment on above: Performed By: #### L 100.0100, L500.2500 ####[facility] [address] [place], [address] MCHC (RBC) [Mass/Vol] 33.0 g/dL Normal 32-36 [facility] Comment on above: Performed By: #### L 100.0100, L500.2500 ####[facility] [address] [place], [address] MCV (RBC) [Entitic vol] 93.2 fL Normal 81-99 [facility] Comment on above: Performed By: #### L 100.0100, L500.2500 ####[facility] [address] [place], [address] Monocytes/100 WBC (Bld) 5.9 % Normal 0-10 [facility] Comment on above: Performed By: #### L 100.0100, L500.2500 ####[facility] [address] [place], [address] Neutrophils/100 WBC (Bld) 74.0 % High 47-70 [facility] Comment on above: Performed By: #### L 100.0100, L500.2500 ####[facility] [address] [place], [address] Nucleated RBC (Bld) [#/Vol] 0 10*3/uL Normal 0-5 [facility] Comment on above: Performed By: #### L 100.0100, L500.2500 ####[facility] [address] [place], [address] Platelet mean volume (Bld) [Entitic vol] 9.4 fL Normal 6.2-12.0 [facility] Comment on above: Performed By: #### L 100.0100, L500.2500 ####[facility] [address] [place], [address] Platelets (Bld) [#/Vol] 312 10*3/uL Normal 150-450 [facility] Comment on above: Performed By: #### L 100.0100, L500.2500 ####[facility] [address] [place], [address] RBC (Bld) [#/Vol] 3.09 10*6/uL Low 4.2-5.4 [facility] Comment on above: Performed By: #### L 100.0100, L500.2500 ####[facility] [address] [place], [address] RDW SD 52.6 fl High 35.1-43.9 [facility] Comment on above: Performed By: #### L 100.0100, L500.2500 ####[facility] [address] [place], [address] WBC (Bld) [#/Vol] 10.6 10*3/uL Normal 4.4-11.0 [facility] Comment on above: Performed By: #### L 100.0100, L500.2500 ####[facility] [address] [place], [address] Chest PA and Lateralon 03-11 Chest PA and Lateral Normal [facility] Basic Metabolic Profile (BMP )on 03-10-2025 BUN Normal 4-19 [facility] Comment on above: Result Comment: Canc elled via OM: Order cancelled - Patient discharged Performed By: #### L 500.2500, L100.0100 ####[facility] [address] [place], [address] BUN/CRE Normal 10-20 [facility] Comment on above: Result Comment: Canc elled via OM: Order cancelled - Patient discharged Performed By: #### L 500.2500, L100.0100 ####[facility] [address] [place], [address] Calcium Normal 7.6-11.0 [facility] Comment on above: Result Comment: Canc elled via OM: Order cancelled - Patient discharged Performed By: #### L 500.2500, L100.0100 ####[facility] [address] [place], [address] CL Normal 98-108 [facility] Comment on above: Result Comment: Canc elled via OM: Order cancelled - Patient discharged Performed By: #### L 500.2500, L100.0100 ####[facility] [address] [place], [address] CO2 Normal 21.0-32.0 [facility] Comment on above: Result Comment: Canc elled via OM: Order cancelled - Patient discharged Performed By: #### L 500.2500, L100.0100 ####[facility] [address] [place], [address] CREAT,SERUM Normal 0.70-1.20 [facility] Comment on above: Result Comment: Canc elled via OM: Order cancelled - Patient discharged Performed By: #### L 500.2500, L100.0100 ####[facility] [address] [place], [address] eGFR Normal >60 [facility] Comment on above: Result Comment: Canc elled via OM: Order cancelled - Patient discharged Performed By: #### L 500.2500, L100.0100 ####[facility] [address] [place], [address] GAP Normal 5-15 [facility] Comment on above: Result Comment: Canc elled via OM: Order cancelled - Patient discharged Performed By: #### L 500.2500, L100.0100 ####[facility] [address] [place], [address] GLU Normal 70-99 [facility] Comment on above: Result Comment: Canc elled via OM: Order cancelled - Patient discharged Performed By: #### L 500.2500, L100.0100 ####[facility] [address] [place], [address] Potassium Normal 3.3-5.1 [facility] Comment on above: Result Comment: Canc elled via OM: Order cancelled - Patient discharged Performed By: #### L 500.2500, L100.0100 ####[facility] [address] [place], [address] Basic Metabolic Profile (BMP) Normal 133-145 [facility] Comment on above: Result Comment: Canc elled via OM: Order cancelled - Patient discharged Performed By: #### L 500.2500, L100.0100 ####[facility] [address] [place], [address] CBC W/Diff, Automatedon 04-2 Absolute Neut Normal 2.0-7.7 [facility] Comment on above: Result Comment: Canc elled via OM: Order cancelled - Patient discharged Performed By: #### L 500.2500, L100.0100 ####[facility] [address] [place], [address] HCT Normal 37-47 [facility] Comment on above: Result Comment: Canc elled via OM: Order cancelled - Patient discharged Performed By: #### L 500.2500, L100.0100 ####[facility] [address] [place], [address] HGB Normal 12.0-15.0 [facility] Comment on above: Result Comment: Canc elled via OM: Order cancelled - Patient discharged Performed By: #### L 500.2500, L100.0100 ####[facility] [address] [place], [address] MCH Normal 27.0-32.0 [facility] Comment on above: Result Comment: Canc elled via OM: Order cancelled - Patient discharged Performed By: #### L 500.2500, L100.0100 ####[facility] [address] [place], [address] MCHC Normal 32-36 [facility] Comment on above: Result Comment: Canc elled via OM: Order cancelled - Patient discharged Performed By: #### L 500.2500, L100.0100 ####[facility] [address], [address] MCV Normal 81-99 [facility] Comment on above: Result Comment: Canc elled via OM: Order cancelled - Patient discharged Performed By: #### L 500.2500, L100.0100 ####[facility] [address] [place], [address] NEUT% Normal 47-70 [facility] Comment on above: Result Comment: Canc elled via OM: Order cancelled - Patient discharged Performed By: #### L 500.2500, L100.0100 ####[facility] [address] [place], [address] PLT Normal 150-450 [facility] Comment on above: Result Comment: Canc elled via OM: Order cancelled - Patient discharged Performed By: #### L 500.2500, L100.0100 ####[facility] [address] [place], [address] RBC Normal 4.2-5.4 [facility] Comment on above: Result Comment: Canc elled via OM: Order cancelled - Patient discharged Performed By: #### L 500.2500, L100.0100 ####[facility] [address] [place], [address] RDW CV Normal 11.6-14.6 [facility] Comment on above: Result Comment: Canc elled via OM: Order cancelled - Patient discharged Performed By: #### L 500.2500, L100.0100 ####[facility] [address] [place], [address] RDW SD Normal 35.1-43.9 [facility] Comment on above: Result Comment: Canc elled via OM: Order cancelled - Patient discharged Performed By: #### L 500.2500, L100.0100 ####[facility] [address] [place], [address] WBC Normal 4.4-11.0 [facility] Comment on above: Result Comment: Canc elled via OM: Order cancelled - Patient discharged Performed By: #### L 500.2500, L100.0100 ####[facility] [address] [place], [address] Basic Metabolic Profile (BMP )on 03-09-2025 BUN Normal 4-19 [facility] Comment on above: Result Comment: Canc elled via OM: Order cancelled - Patient discharged Performed By: #### L 500.2500, L100.0100 ####[facility] [address], [address] BUN/CRE Normal 10-20 [facility] Comment on above: Result Comment: Canc elled via OM: Order cancelled - Patient discharged Performed By: #### L 500.2500, L100.0100 ####[facility] [address], [address] Calcium Normal 7.6-11.0 [facility] Comment on above: Result Comment: Canc elled via OM: Order cancelled - Patient discharged Performed By: #### L 500.2500, L100.0100 ####[facility] [address] [place], [address] CL Normal 98-108 [facility] Comment on above: Result Comment: Canc elled via OM: Order cancelled - Patient discharged Performed By: #### L 500.2500, L100.0100 ####[facility] [address] [place], [address] CO2 Normal 21.0-32.0 [facility] Comment on above: Result Comment: Canc elled via OM: Order cancelled - Patient discharged Performed By: #### L 500.2500, L100.0100 ####[facility] [address] [place], [address] CREAT,SERUM Normal 0.70-1.20 [facility] Comment on above: Result Comment: Canc elled via OM: Order cancelled - Patient discharged Performed By: #### L 500.2500, L100.0100 ####[facility] [address] [place], [address] eGFR Normal >60 [facility] Comment on above: Result Comment: Canc elled via OM: Order cancelled - Patient discharged Performed By: #### L 500.2500, L100.0100 ####[facility] [address] [place], [address] GAP Normal 5-15 [facility] Comment on above: Result Comment: Canc elled via OM: Order cancelled - Patient discharged Performed By: #### L 500.2500, L100.0100 ####[facility] [address] [place], [address] GLU Normal 70-99 [facility] Comment on above: Result Comment: Canc elled via OM: Order cancelled - Patient discharged Performed By: #### L 500.2500, L100.0100 ####[facility] [address] [place], [address] Potassium Normal 3.3-5.1 [facility] Comment on above: Result Comment: Canc elled via OM: Order cancelled - Patient discharged Performed By: #### L 500.2500, L100.0100 ####[facility] [address] [place], [address] Basic Metabolic Profile (BMP) Normal 133-145 [facility] Comment on above: Result Comment: Canc elled via OM: Order cancelled - Patient discharged Performed By: #### L 500.2500, L100.0100 ####[facility] [address] [place], [address] CBC W/Diff, Automatedon 04-2 Absolute Neut Normal 2.0-7.7 [facility] Comment on above: Result Comment: Canc elled via OM: Order cancelled - Patient discharged Performed By: #### L 500.2500, L100.0100 ####[facility] [address], [address] HCT Normal 37-47 [facility] Comment on above: Result Comment: Canc elled via OM: Order cancelled - Patient discharged Performed By: #### L 500.2500, L100.0100 ####[facility] [address] [place], [address] HGB Normal 12.0-15.0 [facility] Comment on above: Result Comment: Canc elled via OM: Order cancelled - Patient discharged Performed By: #### L 500.2500, L100.0100 ####[facility] [address] [place], [address] MCH Normal 27.0-32.0 [facility] Comment on above: Result Comment: Canc elled via OM: Order cancelled - Patient discharged Performed By: #### L 500.2500, L100.0100 ####[facility] [address] [place], [address] MCHC Normal 32-36 [facility] Comment on above: Result Comment: Canc elled via OM: Order cancelled - Patient discharged Performed By: #### L 500.2500, L100.0100 ####[facility] [address] [place], [address] MCV Normal 81-99 [facility] Comment on above: Result Comment: Canc elled via OM: Order cancelled - Patient discharged Performed By: #### L 500.2500, L100.0100 ####[facility] [address] [place], [address] NEUT% Normal 47-70 [facility] Comment on above: Result Comment: Canc elled via OM: Order cancelled - Patient discharged Performed By: #### L 500.2500, L100.0100 ####[facility] [address], [address] PLT Normal 150-450 [facility] Comment on above: Result Comment: Canc elled via OM: Order cancelled - Patient discharged Performed By: #### L 500.2500, L100.0100 ####[facility] [address] [place], [address] RBC Normal 4.2-5.4 [facility] Comment on above: Result Comment: Canc elled via OM: Order cancelled - Patient discharged Performed By: #### L 500.2500, L100.0100 ####[facility] [address] [place], [address] RDW CV Normal 11.6-14.6 [facility] Comment on above: Result Comment: Canc elled via OM: Order cancelled - Patient discharged Performed By: #### L 500.2500, L100.0100 ####[facility] [address] [place], [address] RDW SD Normal 35.1-43.9 [facility] Comment on above: Result Comment: Canc elled via OM: Order cancelled - Patient discharged Performed By: #### L 500.2500, L100.0100 ####[facility] [address] [place], [address] WBC Normal 4.4-11.0 [facility] Comment on above: Result Comment: Canc elled via OM: Order cancelled - Patient discharged Performed By: #### L 500.2500, L100.0100 ####[facility] [address] [place], [address] Venous Duplex US, Unilateral on 03-09-2025 Venous Duplex US, Unilateral Normal [facility] Venous duplex ultrasound rep ortOrdered By: Vadim Estrada on 03-09-2025 US Vein [facility] [address] 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, [address] BUN/CRE Normal 10-20 [facility] Comment on above: Result Comment: Canc elled via OM: Order cancelled - Patient discharged Performed By: #### L 100.0100, L500.2500 ####[facility] [address] [place], [address] Calcium Normal 7.6-11.0 [facility] Comment on above: Result Comment: Canc elled via OM: Order cancelled - Patient discharged Performed By: #### L 100.0100, L500.2500 ####[facility] [address] [place], [address] CL Normal 98-108 [facility] Comment on above: Result Comment: Canc elled via OM: Order cancelled - Patient discharged Performed By: #### L 100.0100, L500.2500 ####[facility] [address] [place], [address] CO2 Normal 21.0-32.0 [facility] Comment on above: Result Comment: Canc elled via OM: Order cancelled - Patient discharged Performed By: #### L 100.0100, L500.2500 ####[facility] [address] [place], [address] CREAT,SERUM Normal 0.70-1.20 [facility] Comment on above: Result Comment: Canc elled via OM: Order cancelled - Patient discharged Performed By: #### L 100.0100, L500.2500 ####[facility] [address] [place], [address] eGFR Normal >60 [facility] Comment on above: Result Comment: Canc elled via OM: Order cancelled - Patient discharged Performed By: #### L 100.0100, L500.2500 ####[facility] [address] [place], [address] GAP Normal 5-15 [facility] Comment on above: Result Comment: Canc elled via OM: Order cancelled - Patient discharged Performed By: #### L 100.0100, L500.2500 ####[facility] [address] [place], [address] GLU Normal 70-99 [facility] Comment on above: Result Comment: Canc elled via OM: Order cancelled - Patient discharged Performed By: #### L 100.0100, L500.2500 ####[facility] [address] [place], [address] Potassium Normal 3.3-5.1 [facility] Comment on above: Result Comment: Canc elled via OM: Order cancelled - Patient discharged Performed By: #### L 100.0100, L500.2500 ####[facility] [address] [place], [address] Basic Metabolic Profile (BMP) Normal 133-145 [facility] Comment on above: Result Comment: Canc elled via OM: Order cancelled - Patient discharged Performed By: #### L 100.0100, L500.2500 ####[facility] [address] [place], [address] CBC W/Diff, Automatedon 04-2 0-2024 Absolute Neut Normal 2.0-7.7 [facility] Comment on above: Result Comment: Canc elled via OM: Order cancelled - Patient discharged Performed By: #### L 100.0100, L500.2500 ####[facility] [address] [place], [address] HCT Normal 37-47 [facility] Comment on above: Result Comment: Canc elled via OM: Order cancelled - Patient discharged Performed By: #### L 100.0100, L500.2500 ####[facility] [address] [place], [address] HGB Normal 12.0-15.0 [facility] Comment on above: Result Comment: Canc elled via OM: Order cancelled - Patient discharged Performed By: #### L 100.0100, L500.2500 ####[facility] [address] [place], [address] MCH Normal 27.0-32.0 [facility] Comment on above: Result Comment: Canc elled via OM: Order cancelled - Patient discharged Performed By: #### L 100.0100, L500.2500 ####[facility] [address] [place], [address] MCHC Normal 32-36 [facility] Comment on above: Result Comment: Canc elled via OM: Order cancelled - Patient discharged Performed By: #### L 100.0100, L500.2500 ####[facility] [address] [place], [address] MCV Normal 81-99 [facility] Comment on above: Result Comment: Canc elled via OM: Order cancelled - Patient discharged Performed By: #### L 100.0100, L500.2500 ####[facility] [address] [place], [address] NEUT% Normal 47-70 [facility] Comment on above: Result Comment: Canc elled via OM: Order cancelled - Patient discharged Performed By: #### L 100.0100, L500.2500 ####[facility] [address], [address] PLT Normal 150-450 [facility] Comment on above: Result Comment: Canc elled via OM: Order cancelled - Patient discharged Performed By: #### L 100.0100, L500.2500 ####[facility] [address] [place], [address] RBC Normal 4.2-5.4 [facility] Comment on above: Result Comment: Canc elled via OM: Order cancelled - Patient discharged Performed By: #### L 100.0100, L500.2500 ####[facility] [address] [place], [address] RDW CV Normal 11.6-14.6 [facility] Comment on above: Result Comment: Canc elled via OM: Order cancelled - Patient discharged Performed By: #### L 100.0100, L500.2500 ####[facility] [address] [place], [address] RDW SD Normal 35.1-43.9 [facility] Comment on above: Result Comment: Canc elled via OM: Order cancelled - Patient discharged Performed By: #### L 100.0100, L500.2500 ####[facility] [address] [place], [address] WBC Normal 4.4-11.0 [facility] Comment on above: Result Comment: Canc elled via OM: Order cancelled - Patient discharged Performed By: #### L 100.0100, L500.2500 ####[facility] [address] [place], [address] Basic Metabolic Profile (BMP )on 03-07-2025 BUN Normal -19 [facility] Comment on above: Result Comment: Canc elled via OM: Order cancelled - Patient discharged Performed By: #### L 100.0100, L500.2500 ####[facility] [address] [place], [address] BUN/CRE Normal 10-20 [facility] Comment on above: Result Comment: Canc elled via OM: Order cancelled - Patient discharged Performed By: #### L 100.0100, L500.2500 ####[facility] [address] [place], [address] Calcium Normal 7.6-11.0 [facility] Comment on above: Result Comment: Canc elled via OM: Order cancelled - Patient discharged Performed By: #### L 100.0100, L500.2500 ####[facility] [address] [place], [address] CL Normal 98-108 [facility] Comment on above: Result Comment: Canc elled via OM: Order cancelled - Patient discharged Performed By: #### L 100.0100, L500.2500 ####[facility] [address] [place], [address] CO2 Normal 21.0-32.0 [facility] Comment on above: Result Comment: Canc elled via OM: Order cancelled - Patient discharged Performed By: #### L 100.0100, L500.2500 ####[facility] [address] [place], [address] CREAT,SERUM Normal 0.70-1.20 [facility] Comment on above: Result Comment: Canc elled via OM: Order cancelled - Patient discharged Performed By: #### L 100.0100, L500.2500 ####[facility] [address] [place], [address] eGFR Normal >60 [facility] Comment on above: Result Comment: Canc elled via OM: Order cancelled - Patient discharged Performed By: #### L 100.0100, L500.2500 ####[facility] [address] [place], [address] GAP Normal 5-15 [facility] Comment on above: Result Comment: Canc elled via OM: Order cancelled - Patient discharged Performed By: #### L 100.0100, L500.2500 ####[facility] [address] [place], [address] GLU Normal 70-99 [facility] Comment on above: Result Comment: Canc elled via OM: Order cancelled - Patient discharged Performed By: #### L 100.0100, L500.2500 ####[facility] [address] [place], [address] Potassium Normal 3.3-5.1 [facility] Comment on above: Result Comment: Canc elled via OM: Order cancelled - Patient discharged Performed By: #### L 100.0100, L500.2500 ####[facility] [address] [place], [address] Basic Metabolic Profile (BMP) Normal 133-145 [facility] Comment on above: Result Comment: Canc elled via OM: Order cancelled - Patient discharged Performed By: #### L 100.0100, L500.2500 ####[facility] [address] [place], [address] CBC W/Diff, Automatedon 04-1 Absolute Neut Normal 2.0-7.7 [facility] Comment on above: Result Comment: Canc elled via OM: Order cancelled - Patient discharged Performed By: #### L 100.0100, L500.2500 ####[facility] [address] [place], [address] HCT Normal 37-47 [facility] Comment on above: Result Comment: Canc elled via OM: Order cancelled - Patient discharged Performed By: #### L 100.0100, L500.2500 ####[facility] [address] [place], [address] HGB Normal 12.0-15.0 [facility] Comment on above: Result Comment: Canc elled via OM: Order cancelled - Patient discharged Performed By: #### L 100.0100, L500.2500 ####[facility] [address] [place], [address] MCH Normal 27.0-32.0 [facility] Comment on above: Result Comment: Canc elled via OM: Order cancelled - Patient discharged Performed By: #### L 100.0100, L500.2500 ####[facility] [address] [place], [address] MCHC Normal 32-36 [facility] Comment on above: Result Comment: Canc elled via OM: Order cancelled - Patient discharged Performed By: #### L 100.0100, L500.2500 ####[facility] [address] [place], [address] MCV Normal 81-99 [facility] Comment on above: Result Comment: Canc elled via OM: Order cancelled - Patient discharged Performed By: #### L 100.0100, L500.2500 ####[facility] [address] [place], [address] NEUT% Normal 47-70 [facility] Comment on above: Result Comment: Canc elled via OM: Order cancelled - Patient discharged Performed By: #### L 100.0100, L500.2500 ####[facility] [address] [place], [address] PLT Normal 150-450 [facility] Comment on above: Result Comment: Canc elled via OM: Order cancelled - Patient discharged Performed By: #### L 100.0100, L500.2500 ####[facility] [address] [place], [address] RBC Normal 4.2-5.4 [facility] Comment on above: Result Comment: Canc elled via OM: Order cancelled - Patient discharged Performed By: #### L 100.0100, L500.2500 ####[facility] [address] [place], [address] RDW CV Normal 11.6-14.6 [facility] Comment on above: Result Comment: Canc elled via OM: Order cancelled - Patient discharged Performed By: #### L 100.0100, L500.2500 ####[facility] [address] [place], [address] RDW SD Normal 35.1-43.9 [facility] Comment on above: Result Comment: Canc elled via OM: Order cancelled - Patient discharged Performed By: #### L 100.0100, L500.2500 ####[facility] [address] [place], [address] WBC Normal 4.4-11.0 [facility] Comment on above: Result Comment: Canc elled via OM: Order cancelled - Patient discharged Performed By: #### L 100.0100, L500.2500 ####[facility] [address] [place], [address] HH, Hemoglobin AND Hematocri ton 03-07-2025 Hematocrit (Bld) [Volume fraction] 26.2 % Low 3747 [facility] Comment on above: Performed By: #### L 100.0600 ####[facility] [address] [place], [address] Hemoglobin (Bld) [Mass/Vol] 9.0 g/dL Low 12.0-15.0 [facility] Comment on above: Performed By: #### L 100.0600 ####[facility] [address] [place], [address] Hematocrit Auto (Bld) [Volum e fraction]Ordered By: Garfield Yo on 03-07-2025 Hematocrit (Bld) [Volume fraction] 26.2 % Low [address] [place] [address] Hemoglobin measurementOrdere d By: Garfield Yo on 03-07-2025 Hemoglobin (Bld) [Mass/Vol] 9.0 g/dL Low 12.0-15.0 [facility] Basic Metabolic Profile (BMP )on 03-06-2025 BUN Normal 4-19 [facility] Comment on above: Result Comment: Canc elled via OM: Order cancelled - Patient discharged Performed By: #### L 500.2500, L100.0100 ####[facility] [address] [place], [address] BUN/CRE Normal 10-20 [facility] Comment on above: Result Comment: Canc elled via OM: Order cancelled - Patient discharged Performed By: #### L 500.2500, L100.0100 ####[facility] [address] [place], [address] Calcium Normal 7.6-11.0 [facility] Comment on above: Result Comment: Canc elled via OM: Order cancelled - Patient discharged Performed By: #### L 500.2500, L100.0100 ####[facility] [address] [place], [address] CL Normal 98-108 [facility] Comment on above: Result Comment: Canc elled via OM: Order cancelled - Patient discharged Performed By: #### L 500.2500, L100.0100 ####[facility] [address] [place], [address] CO2 Normal 21.0-32.0 [facility] Comment on above: Result Comment: Canc elled via OM: Order cancelled - Patient discharged Performed By: #### L 500.2500, L100.0100 ####[facility] [address] [place], [address] CREAT,SERUM Normal 0.70-1.20 [facility] Comment on above: Result Comment: Canc elled via OM: Order cancelled - Patient discharged Performed By: #### L 500.2500, L100.0100 ####[facility] [address] [place], [address] eGFR Normal >60 [facility] Comment on above: Result Comment: Canc elled via OM: Order cancelled - Patient discharged Performed By: #### L 500.2500, L100.0100 ####[facility] [address] [place], [address] GAP Normal 5-15 [facility] Comment on above: Result Comment: Canc elled via OM: Order cancelled - Patient discharged Performed By: #### L 500.2500, L100.0100 ####[facility] [address] [place], [address] GLU Normal 70-99 [facility] Comment on above: Result Comment: Canc elled via OM: Order cancelled - Patient discharged Performed By: #### L 500.2500, L100.0100 ####[facility] [address] [place], [address] Potassium Normal 3.3-5.1 [facility] Comment on above: Result Comment: Canc elled via OM: Order cancelled - Patient discharged Performed By: #### L 500.2500, L100.0100 ####[facility] [address] [place], [address] Basic Metabolic Profile (BMP) Normal 133-145 [facility] Comment on above: Result Comment: Canc elled via OM: Order cancelled - Patient discharged Performed By: #### L 500.2500, L100.0100 ####[facility] [address] [place], [address] CBC W/Diff, Automatedon 04-1 Absolute Neut Normal 2.0-7.7 [facility] Comment on above: Result Comment: Canc elled via OM: Order cancelled - Patient discharged Performed By: #### L 500.2500, L100.0100 ####[facility] [address], [address] HCT Normal 37-47 [facility] Comment on above: Result Comment: Canc elled via OM: Order cancelled - Patient discharged Performed By: #### L 500.2500, L100.0100 ####[facility] [address] [place], [address] HGB Normal 12.0-15.0 [facility] Comment on above: Result Comment: Canc elled via OM: Order cancelled - Patient discharged Performed By: #### L 500.2500, L100.0100 ####[facility] [address], [address] MCH Normal 27.0-32.0 [facility] Comment on above: Result Comment: Canc elled via OM: Order cancelled - Patient discharged Performed By: #### L 500.2500, L100.0100 ####[facility] [address] [place], [address] MCHC Normal 32-36 [facility] Comment on above: Result Comment: Canc elled via OM: Order cancelled - Patient discharged Performed By: #### L 500.2500, L100.0100 ####[facility] [address] [place], [address] MCV Normal 81-99 [facility] Comment on above: Result Comment: Canc elled via OM: Order cancelled - Patient discharged Performed By: #### L 500.2500, L100.0100 ####[facility] [address] [place], [address] NEUT% Normal 47-70 [facility] Comment on above: Result Comment: Canc elled via OM: Order cancelled - Patient discharged Performed By: #### L 500.2500, L100.0100 ####[facility] [address] [place], [address] PLT Normal 150-450 [facility] Comment on above: Result Comment: Canc elled via OM: Order cancelled - Patient discharged Performed By: #### L 500.2500, L100.0100 ####[facility] [address] [place], [address] RBC Normal 4.2-5.4 [facility] Comment on above: Result Comment: Canc elled via OM: Order cancelled - Patient discharged Performed By: #### L 500.2500, L100.0100 ####[facility] [address] [place], [address] RDW CV Normal 11.6-14.6 [facility] Comment on above: Result Comment: Canc elled via OM: Order cancelled - Patient discharged Performed By: #### L 500.2500, L100.0100 ####[facility] [address] [place], [address] RDW SD Normal 35.1-43.9 [facility] Comment on above: Result Comment: Canc elled via OM: Order cancelled - Patient discharged Performed By: #### L 500.2500, L100.0100 ####[facility] [address] [place], [address] WBC Normal 4.4-11.0 [facility] Comment on above: Result Comment: Canc elled via OM: Order cancelled - Patient discharged Performed By: #### L 500.2500, L100.0100 ####[facility] [address] [place], [address] Knee 1 or 2 Viewson 03-06-20 25 Knee 1 or 2 Views Normal [facility] Absolute neutrophil countOrd ered By: Garfield Yo on 03-05-2025 Neutrophils (Bld) [#/Vol] 7.3 10*3/uL 2.0-7.7 [facility] Anion gap in Serum or Plasma Ordered By: Garfield Yo on 03-05-2025 Anion gap [Moles/Vol] 10 mmol/L - [facility] BUN/creatinine ratioOrdered By: Garfield Yo on 03-05-2025 Urea nitrogen/Creatinine [Mass ratio] 17.0 mg/mg 10-20 [facility] Basic Metabolic Profile (BMP )on 03-05-2025 BUN/CRE 17.0 RATIO Normal 10-20 [facility] Comment on above: Performed By: #### L 100.0100, L500.2500 ####[facility] [address] [place], [address] Calcium [Mass/Vol] 8.5 mg/dL Normal 7.6-11.0 [facility] Comment on above: Performed By: #### L 100.0100, L500.2500 ####[facility] [address] [place], [address] Chloride [Moles/Vol] 102 mmol/L Normal 98-108 [facility] Comment on above: Performed By: #### L 100.0100, L500.2500 ####[facility] [address] [place], [address] CO2 [Moles/Vol] 27.5 mmol/L Normal 21.0-32.0 [facility] Comment on above: Performed By: #### L 100.0100, L500.2500 ####[facility] [address] [place], [address] Creatinine [Mass/Vol] 0.78 mg/dL Normal 0.70-1.20 [facility] Comment on above: Performed By: #### L 100.0100, L500.2500 ####[facility] [address] [place], [address] ECRCL 41.90 ml/min Low 50-250 [facility] Comment on above: Performed By: #### L 100.0100, L500.2500 ####[facility] [address] [place], [address] GAP 10 Normal 5-15 [facility] Comment on above: Performed By: #### L 100.0100, L500.2500 ####[facility] [address] [place], [address] GFR/1.73 sq M.predicted among non-blacks MDRD (S/P/Bld) [Vol rate/Area] 74 mL/min/{1.73_m2} Normal >60 [facility] Comment on above: Result Comment: mL/m in/1.73m2 CKD-EPI Creatinine Equation (2020) Performed By: #### L 100.0100, L500.2500 ####[facility] [address] [place], [address] Glucose [Mass/Vol] 100 mg/dL High 70-99 [facility] Comment on above: Performed By: #### L 100.0100, L500.2500 ####[facility] [address] [place], [address] Potassium [Moles/Vol] 3.3 mmol/L Normal 3.3-5.1 [facility] Comment on above: Performed By: #### L 100.0100, L500.2500 ####[facility] [address] [place], [address] Sodium [Moles/Vol] 140 mmol/L Normal 133-145 [facility] Comment on above: Performed By: #### L 100.0100, L500.2500 ####[facility] [address] [place], [address] Urea nitrogen [Mass/Vol] 13 mg/dL Normal 4-19 [facility] Comment on above: Performed By: #### L 100.0100, L500.2500 ####[facility] [address] [place], [address] BUN Normal 4-19 [facility] Comment on above: Result Comment: Canc elled via OM: Order cancelled - Patient discharged Performed By: #### L 500.2500, L100.0100 ####[facility] [address] [place], [address] BUN/CRE Normal 10-20 [facility] Comment on above: Result Comment: Canc elled via OM: Order cancelled - Patient discharged Performed By: #### L 500.2500, L100.0100 ####[facility] [address], [address] Calcium Normal 7.6-11.0 [facility] Comment on above: Result Comment: Canc elled via OM: Order cancelled - Patient discharged Performed By: #### L 500.2500, L100.0100 ####[facility] [address] [place], [address] CL Normal 98-108 [facility] Comment on above: Result Comment: Canc elled via OM: Order cancelled - Patient discharged Performed By: #### L 500.2500, L100.0100 ####[facility] [address] [place], [address] CO2 Normal 21.0-32.0 [facility] Comment on above: Result Comment: Canc elled via OM: Order cancelled - Patient discharged Performed By: #### L 500.2500, L100.0100 ####[facility] [address] [place], [address] CREAT,SERUM Normal 0.70-1.20 [facility] Comment on above: Result Comment: Canc elled via OM: Order cancelled - Patient discharged Performed By: #### L 500.2500, L100.0100 ####[facility] [address], [address] eGFR Normal >60 [facility] Comment on above: Result Comment: Canc elled via OM: Order cancelled - Patient discharged Performed By: #### L 500.2500, L100.0100 ####[facility] [address] [place], [address] GAP Normal 5-15 [facility] Comment on above: Result Comment: Canc elled via OM: Order cancelled - Patient discharged Performed By: #### L 500.2500, L100.0100 ####[facility] [address] [place], [address] GLU Normal 70-99 [facility] Comment on above: Result Comment: Canc elled via OM: Order cancelled - Patient discharged Performed By: #### L 500.2500, L100.0100 ####[facility] [address] [place], [address] Potassium Normal 3.3-5.1 [facility] Comment on above: Result Comment: Canc elled via OM: Order cancelled - Patient discharged Performed By: #### L 500.2500, L100.0100 ####[facility] [address] [place], [address] Basic Metabolic Profile (BMP) Normal 133-145 [facility] Comment on above: Result Comment: Canc elled via OM: Order cancelled - Patient discharged Performed By: #### L 500.2500, L100.0100 ####[facility] [address] [place], [address] Basophil percentageOrdered B y: Garfield Yo on 03-05-2025 Basophils/100 WBC (Bld) 0.5 % 0-1 [facility] CBC W/Diff, Automatedon 02-17 Absolute Lymph 1.57 X10 3/uL Normal 0.83-4.51 [facility] Comment on above: Performed By: #### L 100.0100, L500.2500 ####[facility] [address] [place], [address] Absolute Neut 7.3 X10 3/uL Normal 2.0-7.7 [facility] Comment on above: Performed By: #### L 100.0100, L500.2500 ####[facility] [address] [place], [address] Basophils/100 WBC (Bld) 0.5 % Normal 0-1 [facility] Comment on above: Performed By: #### L 100.0100, L500.2500 ####[facility] [address] [place], [address] Eosinophils/100 WBC (Bld) 3.5 % Normal 0-5 [facility] Comment on above: Performed By: #### L 100.0100, L500.2500 ####[facility] [address] [place], [address] Erythrocyte distribution width (RBC) [Ratio] 13.2 % Normal 11.6-14.6 [facility] Comment on above: Performed By: #### L 100.0100, L500.2500 ####[facility] [address] [place], [address] Hematocrit (Bld) [Volume fraction] 25.8 % Low 37-47 [facility] Comment on above: Performed By: #### L 100.0100, L500.2500 ####[facility] [address] [place], [address] Hemoglobin (Bld) [Mass/Vol] 9.0 g/dL Low 12.0-15.0 [facility] Comment on above: Performed By: #### L 100.0100, L500.2500 ####[facility] [address] [place], [address] IG% 1.100 High 0.0-0.9 [facility] Comment on above: Result Comment: IG% - Immature Granulocytes (promyelocytes, myelocytes andmetamyelocytes) > 1% indicates that a LEFT SHIFT is Present. Performed By: #### L 100.0100, L500.2500 ####[facility] [address] [place], [address] Lymphocytes/100 WBC (Bld) 15.9 % Low 19-41 [facility] Comment on above: Performed By: #### L 100.0100, L500.2500 ####[facility] [address] [place], [address] MCH (RBC) [Entitic mass] 30.7 pg Normal 27.0-32.0 [facility] Comment on above: Performed By: #### L 100.0100, L500.2500 ####[facility] [address] [place], [address] MCHC (RBC) [Mass/Vol] 34.9 g/dL Normal 32-36 [facility] Comment on above: Performed By: #### L 100.0100, L500.2500 ####[facility] [address] [place], [address] MCV (RBC) [Entitic vol] 88.1 fL Normal 81-99 [facility] Comment on above: Performed By: #### L 100.0100, L500.2500 ####[facility] [address] [place], [address] Monocytes/100 WBC (Bld) 5.6 % Normal 0-10 [facility] Comment on above: Performed By: #### L 100.0100, L500.2500 ####[facility] [address] [place], [address] Neutrophils/100 WBC (Bld) 73.4 % High 47-70 [facility] Comment on above: Performed By: #### L 100.0100, L500.2500 ####[facility] [address] [place], [address] Nucleated RBC (Bld) [#/Vol] 0 10*3/uL Normal 0-5 [facility] Comment on above: Performed By: #### L 100.0100, L500.2500 ####[facility] [address], [address] Platelet mean volume (Bld) [Entitic vol] 10.3 fL Normal 6.2-12.0 [facility] Comment on above: Performed By: #### L 100.0100, L500.2500 ####[facility] [address], [address] Platelets (Bld) [#/Vol] 195 10*3/uL Normal 150-450 [facility] Comment on above: Performed By: #### L 100.0100, L500.2500 ####[facility] [address], [address] RBC (Bld) [#/Vol] 2.93 10*6/uL Low 4.2-5.4 [facility] Comment on above: Performed By: #### L 100.0100, L500.2500 ####[facility] [address] [place], [address] RDW SD 42.1 fl Normal 35.1-43.9 [facility] Comment on above: Performed By: #### L 100.0100, L500.2500 ####[facility] [address] [place], [address] WBC (Bld) [#/Vol] 9.9 10*3/uL Normal 4.4-11.0 [facility] Comment on above: Performed By: #### L 100.0100, L500.2500 ####[facility] [address] [place], [address] Absolute Neut Normal 2.0-7.7 [facility] Comment on above: Result Comment: Canc elled via OM: Order cancelled - Patient discharged Performed By: #### L 500.2500, L100.0100 ####[facility] [address] [place], [address] HCT Normal 37-47 [facility] Comment on above: Result Comment: Canc elled via OM: Order cancelled - Patient discharged Performed By: #### L 500.2500, L100.0100 ####[facility] [address] [place], [address] HGB Normal 12.0-15.0 [facility] Comment on above: Result Comment: Canc elled via OM: Order cancelled - Patient discharged Performed By: #### L 500.2500, L100.0100 ####[facility] [address] [place], [address] MCH Normal 27.0-32.0 [facility] Comment on above: Result Comment: Canc elled via OM: Order cancelled - Patient discharged Performed By: #### L 500.2500, L100.0100 ####[facility] [address] [place], [address] MCHC Normal 32-36 [facility] Comment on above: Result Comment: Canc elled via OM: Order cancelled - Patient discharged Performed By: #### L 500.2500, L100.0100 ####[facility] [address] [place], [address] MCV Normal 81-99 [facility] Comment on above: Result Comment: Canc elled via OM: Order cancelled - Patient discharged Performed By: #### L 500.2500, L100.0100 ####[facility] [address] [place], [address] NEUT% Normal 47-70 [facility] Comment on above: Result Comment: Canc elled via OM: Order cancelled - Patient discharged Performed By: #### L 500.2500, L100.0100 ####[facility] [address] [place], [address] PLT Normal 150-450 [facility] Comment on above: Result Comment: Canc elled via OM: Order cancelled - Patient discharged Performed By: #### L 500.2500, L100.0100 ####[facility] [address] [place], [address] RBC Normal 4.2-5.4 [facility] Comment on above: Result Comment: Canc elled via OM: Order cancelled - Patient discharged Performed By: #### L 500.2500, L100.0100 ####[facility] [address] [place], [address] RDW CV Normal 11.6-14.6 [facility] Comment on above: Result Comment: Canc elled via OM: Order cancelled - Patient discharged Performed By: #### L 500.2500, L100.0100 ####[facility] [address] [place], [address] RDW SD Normal 35.1-43.9 [facility] Comment on above: Result Comment: Canc elled via OM: Order cancelled - Patient discharged Performed By: #### L 500.2500, L100.0100 ####[facility] [address] [place], [address] WBC Normal 4.4-11.0 [facility] Comment on above: Result Comment: Canc elled via OM: Order cancelled - Patient discharged Performed By: #### L 500.2500, L100.0100 ####[facility] [address] [place], [address] Carbon dioxide, total [Moles /volume] in Central venous bloodOrdered By: Garfield Yo on 03-05-2025 CO2 [Moles/Vol] 27.5 mmol/L 21.0-32.0 [facility] Chloride assayOrdered By: Kristopher Yo on 03-05-2025 Chloride [Moles/Vol] 102 mmol/L 98-108 [facility] Eosinophil percentageOrdered By: Garfield Yo on 03-05-2025 Eosinophils/100 WBC (Bld) 3.5 % 0-5 [facility] Erythrocyte distribution wid th (RBC) [Ratio]Ordered By: Garfield Yo on 03-05-2025 Erythrocyte distribution width (RBC) [Entitic vol] 42.1 fL 35.1-43.9 [facility] Erythrocyte distribution wid th ratioOrdered By: Garfield Yo on 03-05-2025 Erythrocyte distribution width (RBC) [Ratio] 13.2 % 11.6-14.6 [facility] Estimation of creatinine winston aranceOrdered By: Garfield Yo on 03-05-2025 Estimated Creatinine Clearance Calc 41.90 ml/min Low 50-250 [facility] GFR/1.73 sq M.predicted arti g non-blacks MDRD (S/P/Bld) [Vol rate/Area]Ordered By: Garfield Srinath on 03-05-2025 Estimated GFR (MDRD) Non-Af Amer 74 >60 [facility] Comment on above: mL/min/1.73m2 CKD-EP I Creatinine Equation (2020) Immature granulocytes/100 WB C Auto (Bld)Ordered By: Garfield Srinath 03-05-2025 Immature granulocytes/100 WBC (Bld) 1.100 % High 0.0-0.9 [facility] Comment on above: IG% - Immature Granu locytes (promyelocytes, myelocytes and metamyelocytes) > 1% indicates that a LEFT SHIFT is Present. Lymphocytes Auto (Unsp spec) [#/Vol]Ordered By: Garfield Yo 03-05-2025 Lymphocytes (Bld) [#/Vol] 1.57 10*3/uL 0.83-4.51 [facility] Lymphocytes/100 WBC Auto (Un sp spec)Ordered By: Garfield Yo 03-05-2025 Lymphocytes/100 WBC (Bld) 15.9 % Low 19-41 [facility] MCV (mean corpuscular volume ) determinationOrdered By: Garfield Yo 03-05-2025 MCV (RBC) [Entitic vol] 88.1 fL 81-99 [facility] Mean corpuscular hemoglobin (MCH) determinationOrdered By: Garfield Srinath 03-05-2025 MCH (RBC) [Entitic mass] 30.7 pg 27.0-32.0 [facility] Mean corpuscular hemoglobin concentration (MCHC) determinationOrdered By: Garfield Srinath 03-05-2025 MCHC (RBC) [Mass/Vol] 34.9 g/dL 32-36 [facility] Mean platelet volume determi nationOrdered By: Garfield Yo on 03-05-2025 Platelet mean volume (Bld) [Entitic vol] 10.3 fL 6.2-12.0 [facility] Monocyte percentageOrdered B y: Garfield Yo on 03-05-2025 Monocytes/100 WBC (Bld) 5.6 % 0-10 [facility] Neutrophil percentageOrdered By: Garfield Yo on 03-05-2025 Neutrophils/100 WBC (Bld) 73.4 % High 47-70 [facility] Nucleated red blood cell per centageOrdered By: Garfield Yo on 03-05-2025 Nucleated RBC/100 WBC (Bld) [Ratio] 0 % 0-5 [facility] Platelet countOrdered By: Kristopher Yo on 03-05-2025 Platelets (Bld) [#/Vol] 195 10*3/uL 150-450 [facility] Potassium (Unsp spec) [Mass/ Vol]Ordered By: Garfield Yo on 03-05-2025 Potassium [Moles/Vol] 3.3 mmol/L 3.3-5.1 [facility] RBC Auto (Bld) [#/Vol]Ordere d By: Garfield Yo on 03-05-2025 RBC (Bld) [#/Vol] 2.93 10*6/uL Low 4.2-5.4 [facility] Serum creatinine measurement (mass/volume)Ordered By: Garfield Yo on 03-05-2025 Creatinine [Mass/Vol] 0.78 mg/dL 0.70-1.20 [facility] Serum glucose measurement (m ass/volume)Ordered By: Garfield Yo on 03-05-2025 Glucose [Mass/Vol] 100 mg/dL High 70-99 [facility] Serum or plasma calcium thomas urement (mass/volume)Ordered By: Garfield Yo 03-05-2025 Calcium [Mass/Vol] 8.5 mg/dL 7.6-11.0 [facility] Serum or plasma urea nitroge n measurement (mass/volume)Ordered By: Garfield Yo 03-05-2025 Urea nitrogen [Mass/Vol] 13 mg/dL 4-19 [facility] Sodium levelOrdered By: Garfield Yo on 03-05-2025 Sodium [Moles/Vol] 140 mmol/L 133-145 [facility] White blood cell (WBC) count Ordered By: Garfield Yo on 03-05-2025 WBC (Bld) [#/Vol] 9.9 10*3/uL 4.4-11.0 [facility] Absolute lymphocyte countOrd ered By: Allison Tran on 03-04-2025 Lymphocytes Auto (Unsp spec) [#/Vol] 1.35 10*3/uL 0.83-4.51 [facility] Absolute neutrophil countOrd ered By: Allison Tran on 03-04-2025 Neutrophils (Bld) [#/Vol] 9.0 10*3/uL High 2.0-7.7 [facility] Anion gap in Serum or Plasma Ordered By: Allison Tran on 03-04-2025 Anion gap [Moles/Vol] 10 mmol/L 5-15 [facility] Automated lymphocyte count a s percentage of total leukocytesOrdered By: Allison Tran on 03-04-2025 Lymphocytes/100 WBC Auto (Unsp spec) 11.6 % Low 19-41 [facility] BUN/creatinine ratioOrdered By: Allison Tran on 03-04-2025 Urea nitrogen/Creatinine [Mass ratio] 18.5 mg/mg 10-20 [facility] Basic Metabolic Profile (BMP )on 03-04-2025 BUN/CRE 18.5 RATIO Normal 10-20 [facility] Comment on above: Performed By: #### L 100.0100, L500.2500 ####[facility] [address] [place], [address] Calcium [Mass/Vol] 8.4 mg/dL Normal 7.6-11.0 [facility] Comment on above: Performed By: #### L 100.0100, L500.2500 ####[facility] [address] [place], [address] Chloride [Moles/Vol] 103 mmol/L Normal 98-108 [facility] Comment on above: Performed By: #### L 100.0100, L500.2500 ####[facility] [address] [place], [address] CO2 [Moles/Vol] 26.0 mmol/L Normal 21.0-32.0 [facility] Comment on above: Performed By: #### L 100.0100, L500.2500 ####[facility] [address] [place], [address] Creatinine [Mass/Vol] 0.76 mg/dL Normal 0.70-1.20 [facility] Comment on above: Performed By: #### L 100.0100, L500.2500 ####[facility] [address] [place], [address] ECRCL 41.63 ml/min Low 50-250 [facility] Comment on above: Performed By: #### L 100.0100, L500.2500 ####[facility] [address] [place], [address] GAP 10 Normal 5-15 [facility] Comment on above: Performed By: #### L 100.0100, L500.2500 ####[facility] [address] [place], [address] GFR/1.73 sq M.predicted among non-blacks MDRD (S/P/Bld) [Vol rate/Area] 77 mL/min/{1.73_m2} Normal >60 [facility] Comment on above: Result Comment: mL/m in/1.73m2 CKD-EPI Creatinine Equation (2020) Performed By: #### L 100.0100, L500.2500 ####[facility] [address] [place], [address] Glucose [Mass/Vol] 112 mg/dL High 70-99 [facility] Comment on above: Performed By: #### L 100.0100, L500.2500 ####[facility] [address] [place], [address] Potassium [Moles/Vol] 3.7 mmol/L Normal 3.3-5.1 [facility] Comment on above: Performed By: #### L 100.0100, L500.2500 ####[facility] [address] [place], [address] Sodium [Moles/Vol] 139 mmol/L Normal 133-145 [facility] Comment on above: Performed By: #### L 100.0100, L500.2500 ####[facility] [address] [place], [address] Urea nitrogen [Mass/Vol] 14 mg/dL Normal 4-19 [facility] Comment on above: Performed By: #### L 100.0100, L500.2500 ####[facility] [address] [place], [address] Basophil percentageOrdered B y: Allison Tran on 03-04-2025 Basophils/100 WBC (Bld) 0.6 % 0-1 [facility] CBC W/Diff, Automatedon 02-17 Absolute Lymph 1.35 X10 3/uL Normal 0.83-4.51 [facility] Comment on above: Performed By: #### L 100.0100, L500.2500 ####[facility] [address] [place], [address] Absolute Neut 9.0 X10 3/uL High 2.0-7.7 [facility] Comment on above: Performed By: #### L 100.0100, L500.2500 ####[facility] [address] [place], [address] Basophils/100 WBC (Bld) 0.6 % Normal 0-1 [facility] Comment on above: Performed By: #### L 100.0100, L500.2500 ####[facility] [address] [place], [address] Eosinophils/100 WBC (Bld) 1.8 % Normal 0-5 [facility] Comment on above: Performed By: #### L 100.0100, L500.2500 ####[facility] [address] [place], [address] Erythrocyte distribution width (RBC) [Ratio] 13.2 % Normal 11.6-14.6 [facility] Comment on above: Performed By: #### L 100.0100, L500.2500 ####[facility] [address] [place], [address] Hematocrit (Bld) [Volume fraction] 24.6 % Low 37-47 [facility] Comment on above: Performed By: #### L 100.0100, L500.2500 ####[facility] [address] [place], [address] Hemoglobin (Bld) [Mass/Vol] 8.5 g/dL Low 12.0-15.0 [facility] Comment on above: Performed By: #### L 100.0100, L500.2500 ####[facility] [address] [place], [address] IG% 0.900 Normal 0.0-0.9 [facility] Comment on above: Result Comment: IG% - Immature Granulocytes (promyelocytes, myelocytes andmetamyelocytes) > 1% indicates that a LEFT SHIFT is Present. Performed By: #### L 100.0100, L500.2500 ####[facility] [address] [place], [address] Lymphocytes/100 WBC (Bld) 11.6 % Low 19-41 [facility] Comment on above: Performed By: #### L 100.0100, L500.2500 ####[facility] [address] [place], [address] MCH (RBC) [Entitic mass] 29.9 pg Normal 27.0-32.0 [facility] Comment on above: Performed By: #### L 100.0100, L500.2500 ####[facility] [address] [place], [address] MCHC (RBC) [Mass/Vol] 34.6 g/dL Normal 32-36 [facility] Comment on above: Performed By: #### L 100.0100, L500.2500 ####[facility] [address] [place], [address] MCV (RBC) [Entitic vol] 86.6 fL Normal 81-99 [facility] Comment on above: Performed By: #### L 100.0100, L500.2500 ####[facility] [address] [place], [address] Monocytes/100 WBC (Bld) 7.6 % Normal 0-10 [facility] Comment on above: Performed By: #### L 100.0100, L500.2500 ####[facility] [address] [place], [address] Neutrophils/100 WBC (Bld) 77.5 % High 47-70 [facility] Comment on above: Performed By: #### L 100.0100, L500.2500 ####[facility] [address] [place], [address] Nucleated RBC (Bld) [#/Vol] 0 10*3/uL Normal 0-5 [facility] Comment on above: Performed By: #### L 100.0100, L500.2500 ####[facility] [address] [place], [address] Platelet mean volume (Bld) [Entitic vol] 10.3 fL Normal 6.2-12.0 [facility] Comment on above: Performed By: #### L 100.0100, L500.2500 ####[facility] [address] [place], [address] Platelets (Bld) [#/Vol] 177 10*3/uL Normal 150-450 [facility] Comment on above: Performed By: #### L 100.0100, L500.2500 ####[facility] [address] [place], [address] RBC (Bld) [#/Vol] 2.84 10*6/uL Low 4.2-5.4 [facility] Comment on above: Performed By: #### L 100.0100, L500.2500 ####[facility] [address] [place], [address] RDW SD 41.2 fl Normal 35.1-43.9 [facility] Comment on above: Performed By: #### L 100.0100, L500.2500 ####[facility] [address] [place], [address] WBC (Bld) [#/Vol] 11.6 10*3/uL High 4.4-11.0 [facility] Comment on above: Performed By: #### L 100.0100, L500.2500 ####[facility] [address] [place], [address] Carbon dioxide, total [Moles /volume] in Central venous bloodOrdered By: Allison Tran on 03-04-2025 CO2 [Moles/Vol] 26.0 mmol/L 21.0-32.0 [facility] Chloride assayOrdered By: Na na Chelsea on 03-04-2025 Chloride [Moles/Vol] 103 mmol/L 98-108 [facility] Eosinophil percentageOrdered By: Allison Tran on 03-04-2025 Eosinophils/100 WBC (Bld) 1.8 % 0-5 [facility] Erythrocyte distribution wid th (RBC) [Ratio]Ordered By: Allison Tran on 03-04-2025 Erythrocyte distribution width (RBC) [Entitic vol] 41.2 fL 35.1-43.9 [facility] Erythrocyte distribution wid th ratioOrdered By: Allison Tran on 03-04-2025 Erythrocyte distribution width (RBC) [Ratio] 13.2 % 11.6-14.6 [facility] Erythrocyte distribution wid th standard deviationOrdered By: Allison Tran on 03-04-2025 Erythrocyte distribution width (RBC) [Ratio] 41.2 fl 35.1-43.9 [facility] Estimation of creatinine winston aranceOrdered By: Allison Tran on 03-04-2025 Estimated Creatinine Clearance Calc 41.63 ml/min Low 50-250 [facility] GFR/1.73 sq M.predicted arti g non-blacks MDRD (S/P/Bld) [Vol rate/Area]Ordered By: Allison Tran on 03-04-2025 Estimated GFR (MDRD) Non-Af Amer 77 >60 [facility] Comment on above: mL/min/1.73m2 CKD-EP I Creatinine Equation (2020) Glomerular filtration rate ( GFR) estimation/1.73 sq m using serum, plasma, or whole bOrdered By: Allison Tran on 03-04-2025 GFR/1.73 sq M.predicted among non-blacks MDRD (S/P/Bld) [Vol rate/Area] 77 mL/min/{1.73_m2} >60 [facility] Comment on above: mL/min/1.73m2 CKD-EP I Creatinine Equation (2020) Hematocrit Auto (Bld) [Volum e fraction]Ordered By: Allison Tran 03-04-2025 Hematocrit (Bld) [Volume fraction] 24.6 % Low 37-47 [facility] Hemoglobin measurementOrdere d By: Allison Tran 03-04-2025 Hemoglobin (Bld) [Mass/Vol] 8.5 g/dL Low 12.0-15.0 [facility] Immature granulocytes/100 WB C Auto (Bld)Ordered By: Allison Tran 03-04-2025 Immature granulocytes/100 WBC (Bld) 0.900 % 0.0-0.9 [facility] Comment on above: IG% - Immature Granu locytes (promyelocytes, myelocytes and metamyelocytes) > 1% indicates that a LEFT SHIFT is Present. Lymphocytes Auto (Unsp spec) [#/Vol]Ordered By: Allison Tran on 03-04-2025 Lymphocytes (Bld) [#/Vol] 1.35 10*3/uL 0.83-4.51 [facility] Lymphocytes/100 WBC Auto (Un sp spec)Ordered By: Allison Tran on 03-04-2025 Lymphocytes/100 WBC (Bld) 11.6 % Low 19-41 [facility] MCV (mean corpuscular volume ) determinationOrdered By: Allison Tran on 03-04-2025 MCV (RBC) [Entitic vol] 86.6 fL 81-99 [facility] Mean corpuscular hemoglobin (MCH) determinationOrdered By: Allison Tran on 03-04-2025 MCH (RBC) [Entitic mass] 29.9 pg 27.0-32.0 [facility] Mean corpuscular hemoglobin concentration (MCHC) determinationOrdered By: Allison Tran on 03-04-2025 MCHC (RBC) [Mass/Vol] 34.6 g/dL 32-36 [facility] Mean platelet volume determi nationOrdered By: Allison Tran on 03-04-2025 Platelet mean volume (Bld) [Entitic vol] 10.3 fL 6.2-12.0 [facility] Monocyte percentageOrdered B y: Allison Tran on 03-04-2025 Monocytes/100 WBC (Bld) 7.6 % 0-10 [facility] Neutrophil percentageOrdered By: Allison Tran on 03-04-2025 Neutrophils/100 WBC (Bld) 77.5 % High 47-70 [facility] Nucleated red blood cell per centageOrdered By: Allison Tran on 03-04-2025 Nucleated RBC/100 WBC (Bld) [Ratio] 0 % 0-5 [facility] Platelet countOrdered By: Jessica Tran on 03-04-2025 Platelets (Bld) [#/Vol] 177 10*3/uL 150-450 [facility] Potassium (Unsp spec) [Mass/ Vol]Ordered By: Allison Tran on 03-04-2025 Potassium [Moles/Vol] 3.7 mmol/L 3.3-5.1 [facility] Potassium measurement (mass/ volume)Ordered By: Allison Tran on 03-04-2025 Potassium (Unsp spec) [Mass/Vol] 3.7 mmol/L 3.3-5.1 [facility] RBC Auto (Bld) [#/Vol]Ordere d By: Allison Tran on 03-04-2025 RBC (Bld) [#/Vol] 2.84 10*6/uL Low 4.2-5.4 [facility] Serum creatinine measurement (mass/volume)Ordered By: Allison Tran on 03-04-2025 Creatinine [Mass/Vol] 0.76 mg/dL 0.70-1.20 [facility] Serum glucose measurement (m ass/volume)Ordered By: Allison Tran on 03-04-2025 Glucose [Mass/Vol] 112 mg/dL High 70-99 [facility] Serum or plasma calcium thomas urement (mass/volume)Ordered By: Allison Tran on 03-04-2025 Calcium [Mass/Vol] 8.4 mg/dL 7.6-11.0 [facility] Serum or plasma urea nitroge n measurement (mass/volume)Ordered By: Allison Tran on 03-04-2025 Urea nitrogen [Mass/Vol] 14 mg/dL 4-19 [facility] Sodium levelOrdered By: Allison Tran on 03-04-2025 Sodium [Moles/Vol] 139 mmol/L 133-145 [facility] White blood cell (WBC) count Ordered By: Allison Tran on 03-04-2025 WBC (Bld) [#/Vol] 11.6 10*3/uL High 4.4-11.0 [facility] Basic Metabolic Profile (BMP )on 03-03-2025 BUN/CRE 13.6 RATIO Normal 10-20 [facility] Comment on above: Performed By: #### L 100.0100, L500.2500 ####[facility] [address] [place], [address] Calcium [Mass/Vol] 8.3 mg/dL Normal 7.6-11.0 [facility] Comment on above: Performed By: #### L 100.0100, L500.2500 ####[facility] [address] [place], [address] Chloride [Moles/Vol] 102 mmol/L Normal 98-108 [facility] Comment on above: Performed By: #### L 100.0100, L500.2500 ####[facility] [address] [place], [address] CO2 [Moles/Vol] 25.7 mmol/L Normal 21.0-32.0 [facility] Comment on above: Performed By: #### L 100.0100, L500.2500 ####[facility] [address] [place], [address] Creatinine [Mass/Vol] 0.94 mg/dL Normal 0.70-1.20 [facility] Comment on above: Performed By: #### L 100.0100, L500.2500 ####[facility] [address] [place], [address] ECRCL 35.43 ml/min Low 50-250 [facility] Comment on above: Performed By: #### L 100.0100, L500.2500 ####[facility] [address] [place], [address] GAP 10 Normal 5-15 [facility] Comment on above: Performed By: #### L 100.0100, L500.2500 ####[facility] [address] [place], [address] GFR/1.73 sq M.predicted among non-blacks MDRD (S/P/Bld) [Vol rate/Area] 60 mL/min/{1.73_m2} Normal >60 [facility] Comment on above: Result Comment: mL/m in/1.73m2 CKD-EPI Creatinine Equation (2020) Performed By: #### L 100.0100, L500.2500 ####[facility] [address] [place], [address] Glucose [Mass/Vol] 102 mg/dL High 70-99 [facility] Comment on above: Performed By: #### L 100.0100, L500.2500 ####[facility] [address] [place], [address] Potassium [Moles/Vol] 3.9 mmol/L Normal 3.3-5.1 [facility] Comment on above: Result Comment: Hemo lysis present, Results??could be affected.?? Performed By: #### L 100.0100, L500.2500 ####[facility] [address] [place], [address] Sodium [Moles/Vol] 137 mmol/L Normal 133-145 [facility] Comment on above: Performed By: #### L 100.0100, L500.2500 ####[facility] [address] [place], [address] Urea nitrogen [Mass/Vol] 13 mg/dL Normal 4-19 [facility] Comment on above: Performed By: #### L 100.0100, L500.2500 ####[facility] [address] [place], [address] CBC W/Diff, Automatedon 04-1 -2024 Absolute Lymph 1.61 X10 3/uL Normal 0.83-4.51 [facility] Comment on above: Performed By: #### L 100.0100, L500.2500 ####[facility] [address], [address] Absolute Neut 9.5 X10 3/uL High 2.0-7.7 [facility] Comment on above: Performed By: #### L 100.0100, L500.2500 ####[facility] [address], [address] Basophils/100 WBC (Bld) 0.5 % Normal 0-1 [facility] Comment on above: Performed By: #### L 100.0100, L500.2500 ####[facility] [address] [place], [address] Eosinophils/100 WBC (Bld) 1.9 % Normal 0-5 [facility] Comment on above: Performed By: #### L 100.0100, L500.2500 ####[facility] [address] [place], [address] Erythrocyte distribution width (RBC) [Ratio] 13.2 % Normal 11.6-14.6 [facility] Comment on above: Performed By: #### L 100.0100, L500.2500 ####[facility] [address] [place], [address] Hematocrit (Bld) [Volume fraction] 25.5 % Low 37-47 [facility] Comment on above: Performed By: #### L 100.0100, L500.2500 ####[facility] [address] [place], [address] Hemoglobin (Bld) [Mass/Vol] 8.7 g/dL Low 12.0-15.0 [facility] Comment on above: Performed By: #### L 100.0100, L500.2500 ####[facility] [address] [place], [address] IG% 0.800 Normal 0.0-0.9 [facility] Comment on above: Result Comment: IG% - Immature Granulocytes (promyelocytes, myelocytes andmetamyelocytes) > 1% indicates that a LEFT SHIFT is Present. Performed By: #### L 100.0100, L500.2500 ####[facility] [address] [place], [address] Lymphocytes/100 WBC (Bld) 12.6 % Low 19-41 [facility] Comment on above: Performed By: #### L 100.0100, L500.2500 ####[facility] [address] [place], [address] MCH (RBC) [Entitic mass] 30.2 pg Normal 27.0-32.0 [facility] Comment on above: Performed By: #### L 100.0100, L500.2500 ####[facility] [address] [place], [address] MCHC (RBC) [Mass/Vol] 34.1 g/dL Normal 32-36 [facility] Comment on above: Performed By: #### L 100.0100, L500.2500 ####[facility] [address] [place], [address] MCV (RBC) [Entitic vol] 88.5 fL Normal 81-99 [facility] Comment on above: Performed By: #### L 100.0100, L500.2500 ####[facility] [address] [place], [address] Monocytes/100 WBC (Bld) 9.6 % Normal 0-10 [facility] Comment on above: Performed By: #### L 100.0100, L500.2500 ####[facility] [address] [place], [address] Neutrophils/100 WBC (Bld) 74.6 % High 47-70 [facility] Comment on above: Performed By: #### L 100.0100, L500.2500 ####[facility] [address] [place], [address] Nucleated RBC (Bld) [#/Vol] 0 10*3/uL Normal 0-5 [facility] Comment on above: Performed By: #### L 100.0100, L500.2500 ####[facility] [address] [place], [address] Platelet mean volume (Bld) [Entitic vol] 10.4 fL Normal 6.2-12.0 [facility] Comment on above: Performed By: #### L 100.0100, L500.2500 ####[facility] [address] [place], [address] Platelets (Bld) [#/Vol] 171 10*3/uL Normal 150-450 [facility] Comment on above: Performed By: #### L 100.0100, L500.2500 ####[facility] [address] [place], [address] RBC (Bld) [#/Vol] 2.88 10*6/uL Low 4.2-5.4 [facility] Comment on above: Performed By: #### L 100.0100, L500.2500 ####[facility] [address] [place], [address] RDW SD 42.8 fl Normal 35.1-43.9 [facility] Comment on above: Performed By: #### L 100.0100, L500.2500 ####[facility] [address] [place], [address] WBC (Bld) [#/Vol] 12.8 10*3/uL High 4.4-11.0 [facility] Comment on above: Performed By: #### L 100.0100, L500.2500 ####[facility] [address] [place], [address] MR/RDMPRABJ0co 03-03-2025 MR/POSTOPAN2 Normal [facility] Bilirubin, totalOrdered By: Roro Long on 03-02-2025 Bilirubin [Mass/Vol] 1.32 mg/dL High 0.00-1.30 [facility] CBC W/Diff, Automatedon 02-17 Absolute Lymph 1.50 X10 3/uL Normal 0.83-4.51 [facility] Comment on above: Performed By: #### L 100.0100, L501.9520, L501.2300, L501.5200, L500.4050 ####[facility] [address] [place], [address] Absolute Neut 9.9 X10 3/uL High 2.0-7.7 [facility] Comment on above: Performed By: #### L 100.0100, L501.9520, L501.2300, L501.5200, L500.4050 ####[facility] [address] [place], [address] Basophils/100 WBC (Bld) 0.4 % Normal 0-1 [facility] Comment on above: Performed By: #### L 100.0100, L501.9520, L501.2300, L501.5200, L500.4050 ####[facility] [address] [place], [address] Eosinophils/100 WBC (Bld) 0.9 % Normal 0-5 [facility] Comment on above: Performed By: #### L 100.0100, L501.9520, L501.2300, L501.5200, L500.4050 ####[facility] [address] [place], [address] Erythrocyte distribution width (RBC) [Ratio] 13.2 % Normal 11.6-14.6 [facility] Comment on above: Performed By: #### L 100.0100, L501.9520, L501.2300, L501.5200, L500.4050 ####[facility] [address] [place], [address] Hematocrit (Bld) [Volume fraction] 33.7 % Low 37-47 [facility] Comment on above: Performed By: #### L 100.0100, L501.9520, L501.2300, L501.5200, L500.4050 ####[facility] [address] [place], [address] Hemoglobin (Bld) [Mass/Vol] 11.6 g/dL Low 12.0-15.0 [facility] Comment on above: Performed By: #### L 100.0100, L501.9520, L501.2300, L501.5200, L500.4050 ####[facility] [address] [place], [address] IG% 0.900 Normal 0.0-0.9 [facility] Comment on above: Result Comment: IG% - Immature Granulocytes (promyelocytes, myelocytes andmetamyelocytes) > 1% indicates that a LEFT SHIFT is Present. Performed By: #### L 100.0100, L501.9520, L501.2300, L501.5200, L500.4050 ####[facility] [address] [place], [address] Lymphocytes/100 WBC (Bld) 11.6 % Low 19-41 [facility] Comment on above: Performed By: #### L 100.0100, L501.9520, L501.2300, L501.5200, L500.4050 ####[facility] [address] [place], [address] MCH (RBC) [Entitic mass] 30.5 pg Normal 27.0-32.0 [facility] Comment on above: Performed By: #### L 100.0100, L501.9520, L501.2300, L501.5200, L500.4050 ####[facility] [address] [place], [address] MCHC (RBC) [Mass/Vol] 34.4 g/dL Normal 32-36 [facility] Comment on above: Performed By: #### L 100.0100, L501.9520, L501.2300, L501.5200, L500.4050 ####[facility] [address] [place], [address] MCV (RBC) [Entitic vol] 88.7 fL Normal 81-99 [facility] Comment on above: Performed By: #### L 100.0100, L501.9520, L501.2300, L501.5200, L500.4050 ####[facility] [address] [place], [address] Monocytes/100 WBC (Bld) 9.5 % Normal 0-10 [facility] Comment on above: Performed By: #### L 100.0100, L501.9520, L501.2300, L501.5200, L500.4050 ####[facility] [address] [place], [address] Neutrophils/100 WBC (Bld) 76.7 % High 47-70 [facility] Comment on above: Performed By: #### L 100.0100, L501.9520, L501.2300, L501.5200, L500.4050 ####[facility] [address] [place], [address] Nucleated RBC (Bld) [#/Vol] 0 10*3/uL Normal 0-5 [facility] Comment on above: Performed By: #### L 100.0100, L501.9520, L501.2300, L501.5200, L500.4050 ####[facility] [address] [place], [address] Platelet mean volume (Bld) [Entitic vol] 9.5 fL Normal 6.2-12.0 [facility] Comment on above: Performed By: #### L 100.0100, L501.9520, L501.2300, L501.5200, L500.4050 ####[facility] [address] [place], [address] Platelets (Bld) [#/Vol] 203 10*3/uL Normal 150-450 [facility] Comment on above: Performed By: #### L 100.0100, L501.9520, L501.2300, L501.5200, L500.4050 ####[facility] [address] [place], [address] RBC (Bld) [#/Vol] 3.80 10*6/uL Low 4.2-5.4 [facility] Comment on above: Performed By: #### L 100.0100, L501.9520, L501.2300, L501.5200, L500.4050 ####[facility] [address] [place], [address] RDW SD 42.8 fl Normal 35.1-43.9 [facility] Comment on above: Performed By: #### L 100.0100, L501.9520, L501.2300, L501.5200, L500.4050 ####[facility] [address] [place], [address] WBC (Bld) [#/Vol] 12.9 10*3/uL High 4.4-11.0 [facility] Comment on above: Performed By: #### L 100.0100, L501.9520, L501.2300, L501.5200, L500.4050 ####[facility] [address] [place], [address] Comprehensive Metabolic Prof [facility] 03-02-2025 Albumin [Mass/Vol] 3.7 g/dL Normal 3.4-4.8 [facility] Comment on above: Performed By: #### L 100.0100, L501.9520, L501.2300, L501.5200, L500.4050 ####[facility] [address] [place], [address] Albumin/Globulin [Mass ratio] 1.6 {ratio} Normal 0.9-2.4 [facility] Comment on above: Performed By: #### L 100.0100, L501.9520, L501.2300, L501.5200, L500.4050 ####[facility] [address] [place], [address] ALK PHOS 55 U/L Normal 35-104 [facility] Comment on above: Performed By: #### L 100.0100, L501.9520, L501.2300, L501.5200, L500.4050 ####[facility] [address] [place], [address] ALT [Catalytic activity/Vol] 11 U/L Normal <=34 [facility] Comment on above: Performed By: #### L 100.0100, L501.9520, L501.2300, L501.5200, L500.4050 ####[facility] [address] [place], [address] AST [Catalytic activity/Vol] 27 U/L Normal <=31 [facility] Comment on above: Performed By: #### L 100.0100, L501.9520, L501.2300, L501.5200, L500.4050 ####[facility] [address] [place], [address] Bilirubin [Mass/Vol] 1.32 mg/dL High 0.00-1.30 [facility] Comment on above: Performed By: #### L 100.0100, L501.9520, L501.2300, L501.5200, L500.4050 ####[facility] [address] [place], [address] BUN/CRE 15.4 RATIO Normal 10-20 [facility] Comment on above: Performed By: #### L 100.0100, L501.9520, L501.2300, L501.5200, L500.4050 ####[facility] [address], [address] Calcium [Mass/Vol] 9.0 mg/dL Normal 7.6-11.0 [facility] Comment on above: Performed By: #### L 100.0100, L501.9520, L501.2300, L501.5200, L500.4050 ####[facility] [address] [place], [address] Chloride [Moles/Vol] 103 mmol/L Normal 98-108 [facility] Comment on above: Performed By: #### L 100.0100, L501.9520, L501.2300, L501.5200, L500.4050 ####[facility] [address] [place], [address] CO2 [Moles/Vol] 27.7 mmol/L Normal 21.0-32.0 [facility] Comment on above: Performed By: #### L 100.0100, L501.9520, L501.2300, L501.5200, L500.4050 ####[facility] [address], [address] Creatinine [Mass/Vol] 1.06 mg/dL Normal 0.70-1.20 [facility] Comment on above: Performed By: #### L 100.0100, L501.9520, L501.2300, L501.5200, L500.4050 ####[facility] [address], [address] ECRCL 31.45 ml/min Low 50-250 [facility] Comment on above: Performed By: #### L 100.0100, L501.9520, L501.2300, L501.5200, L500.4050 ####[facility] [address], [address] GAP 9 Normal 5-15 [facility] Comment on above: Performed By: #### L 100.0100, L501.9520, L501.2300, L501.5200, L500.4050 ####[facility] [address] [place], [address] GFR/1.73 sq M.predicted among non-blacks MDRD (S/P/Bld) [Vol rate/Area] 52 mL/min/{1.73_m2} Low >60 [facility] Comment on above: Result Comment: mL/m in/1.73m2 CKD-EPI Creatinine Equation (2020) Performed By: #### L 100.0100, L501.9520, L501.2300, L501.5200, L500.4050 ####[facility] [address] [place], [address] Globulin (S) [Mass/Vol] 2.3 g/dL Normal 2.2-4.2 [facility] Comment on above: Performed By: #### L 100.0100, L501.9520, L501.2300, L501.5200, L500.4050 ####[facility] [address] [place], [address] Glucose [Mass/Vol] 109 mg/dL High 70-99 [facility] Comment on above: Performed By: #### L 100.0100, L501.9520, L501.2300, L501.5200, L500.4050 ####[facility] [address] [place], [address] Potassium [Moles/Vol] 4.0 mmol/L Normal 3.3-5.1 [facility] Comment on above: Performed By: #### L 100.0100, L501.9520, L501.2300, L501.5200, L500.4050 ####[facility] [address] [place], [address] Sodium [Moles/Vol] 140 mmol/L Normal 133-145 [facility] Comment on above: Performed By: #### L 100.0100, L501.9520, L501.2300, L501.5200, L500.4050 ####[facility] [address] [place], [address] T PROT 6.0 g/dL Normal 5.9-8.4 [facility] Comment on above: Performed By: #### L 100.0100, L501.9520, L501.2300, L501.5200, L500.4050 ####[facility] [address] [place], [address] Urea nitrogen [Mass/Vol] 16 mg/dL Normal 4-19 [facility] Comment on above: Performed By: #### L 100.0100, L501.9520, L501.2300, L501.5200, L500.4050 ####[facility] [address] [place], [address] Consultation - Orthopedicson 03-02-2025 Consultation - Orthopedics Normal [facility] Electrocardiogram reportOrde red By: Grazyna Santizo on 03-02-2025 EKG study [facility] Cardiovascular Services [address] [place] [address] 12 Lead EKG 03/01/25 1232 MR#: [id number] Acct: [id number] Name: MICHAELA BRANDT Rep #:[id number] : 1940 84 From: Grazyna palmer MD Attending Dr: Dr. Allison Tran MD Status: ADM IN Ordering Dr: Guerrero Valerio DO Date: 0 03/01/25 [place] [facility] [place] Sex: F C Admitted: 03/01/25 Test Reason [...] normal variant ( R in aVL , [place] product ) Borderline ECG Confirmed by Grazyna Santizo ([id number]), rewrite editor GABI PALOMARES ([id number]) on :19:11 PM Referred By: Confirmed By: Grazyna Santizo 03/02/25 1319 Date _ Grazyna Santizo MD CC: Dr. Dillan Santiago MD; Dr. Guerrero Valerio DO; Dr. Allison Tran MD ~ Signed [facility] Other Phone: Hip Min 2 Views (Portable)on 03-02-2025 Hip Min 2 Views (Portable) Normal [facility] Hip Min 2 Views (Portable) Normal [facility] Laboratory - Chemistry and C hemistry - challengeOrdered By: Roro Long on 03-02-2025 AST [Catalytic activity/Vol] 27 U/L <32 [facility] MR/POSTOP.ANEon 03-02-2025 MR/POSTOP.ANE Normal [facility] Magnesiumon 03-02-2025 Magnesium [Mass/Vol] 2.2 mg/dL Normal 1.5-2.2 [facility] Comment on above: Performed By: #### L 100.0100, L501.9520, L501.2300, L501.5200, L500.4050 ####[facility] [address] [place], [address] Magnesium (Unsp spec) [Mass/ Vol]Ordered By: Roro Long on 03-02-2025 Magnesium [Mass/Vol] 2.2 mg/dL 1.5-2.2 [facility] Magnesium measurement (mass/ volume)Ordered By: Roro Long on 03-02-2025 Magnesium (Unsp spec) [Mass/Vol] 2.2 mg/dL 1.5-2.2 [facility] Operative Reporton Operative Report Normal [facility] Phosphoruson 03-02-2025 Phosphate [Mass/Vol] 4.0 mg/dL Normal 2.7-4.5 [facility] Comment on above: Performed By: #### L 100.0100, L501.9520, L501.2300, L501.5200, L500.4050 ####[facility] [address] [place], [address] Serum globulin measurementOr dered By: Roro Long on 03-02-2025 Globulin (S) [Mass/Vol] 2.3 g/dL 2.2-4.2 [facility] Serum or plasma alanine tillman otransferase (ALT) measurementOrdered By: Roro Long on 03-02-2025 ALT [Catalytic activity/Vol] 11 U/L <35 [facility] Serum or plasma albumin thomas urement (mass/volume)Ordered By: Roro Long on 03-02-2025 Albumin [Mass/Vol] 3.7 g/dL 3.4-4.8 [facility] Serum or plasma albumin/glob ulin mass ratioOrdered By: Roro Long on 03-02-2025 Albumin/Globulin [Mass ratio] 1.6 {ratio} 0.9-2.4 [facility] Serum or plasma alkaline mariah sphatase measurementOrdered By: Roro Long on 03-02-2025 ALP [Catalytic activity/Vol] 55 U/L 35-104 [facility] Serum phosphorus measurement Ordered By: Roro Long on 03-02-2025 Phosphorus Level 4.0 mg/dL 2.7-4.5 [facility] TSH DL <= 0.005 mIU/L QnOrde red By: Roro Long on 03-02-2025 Thyroid Stimulating Hormone (TSH) 1.470 uIU/mL 0.300-4.200 [facility] TSH Qn 1.470 uIU/mL 0.300-4.200 [facility] Thyroid Stim Hormone (TSH)on 03-02-2025 TSH 1.470 uIU/mL Normal 0.300-4.200 [facility] Comment on above: Performed By: #### L 100.0100, L501.9520, L501.2300, L501.5200, L500.4050 ####[facility] [address] [place], [address] Total proteinOrdered By: Indu mayenwest Ethan on 03-02-2025 Protein [Mass/Vol] 6.0 g/dL 5.9-8.4 [facility] 12 Lead EKGon 03-01-2025 12 Lead EKG Normal [facility] Absolute neutrophil countOrd ered By: Guerrero Valerio on 03-01-2025 Neutrophils (Bld) [#/Vol] 17.3 10*3/uL High 2.0-7.7 [facility] Activated partial thrombopla stin time (aPTT) in platelet poor plasma by coagulation aOrdered By: Guerrero Valerio on 03-01-2025 aPTT Coag (PPP) [Time] 25.8 s 24.1-36.2 [facility] Anion gap in Serum or Plasma Ordered By: Guerrero Valerio on 03-01-2025 Anion gap [Moles/Vol] 11 mmol/L 5-15 [facility] BUN/creatinine ratioOrdered By: Guerrero Valerio on 03-01-2025 Urea nitrogen/Creatinine [Mass ratio] 17.4 mg/mg 10- [facility] Basic Metabolic Profile (BMP )on 03-01-2025 BUN/CRE 17.4 RATIO Normal - [facility] Comment on above: Performed By: #### L 500.2500, L300.4310, L300.3900, BTS, L100.0100 ####[facility] [address] [place], [address] Calcium [Mass/Vol] 9.2 mg/dL Normal 7.6-11.0 [facility] Comment on above: Performed By: #### L 500.2500, L300.4310, L300.3900, BTS, L100.0100 ####[facility] [address] [place], [address] Chloride [Moles/Vol] 104 mmol/L Normal 98-108 [facility] Comment on above: Performed By: #### L 500.2500, L300.4310, L300.3900, BTS, L100.0100 ####[facility] [address] [place], [address] CO2 [Moles/Vol] 25.2 mmol/L Normal 21.0-32.0 [facility] Comment on above: Performed By: #### L 500.2500, L300.4310, L300.3900, BTS, L100.0100 ####[facility] [address] [place], [address] Creatinine [Mass/Vol] 0.90 mg/dL Normal 0.70-1.20 [facility] Comment on above: Performed By: #### L 500.2500, L300.4310, L300.3900, BTS, L100.0100 ####[facility] [address] [place], [address] ECRCL 37.62 ml/min Low 50-250 [facility] Comment on above: Performed By: #### L 500.2500, L300.4310, L300.3900, BTS, L100.0100 ####[facility] [address] [place], [address] GAP 11 Normal 5-15 [facility] Comment on above: Performed By: #### L 500.2500, L300.4310, L300.3900, BTS, L100.0100 ####[facility] [address] [place], [address] GFR/1.73 sq M.predicted among non-blacks MDRD (S/P/Bld) [Vol rate/Area] 63 mL/min/{1.73_m2} Normal >60 [facility] Comment on above: Result Comment: mL/m in/1.73m2 CKD-EPI Creatinine Equation (2020) Performed By: #### L 500.2500, L300.4310, L300.3900, BTS, L100.0100 ####[facility] [address] [place], [address] Glucose [Mass/Vol] 148 mg/dL High 70-99 [facility] Comment on above: Performed By: #### L 500.2500, L300.4310, L300.3900, BTS, L100.0100 ####[facility] [address] [place], [address] Potassium [Moles/Vol] 4.2 mmol/L Normal 3.3-5.1 [facility] Comment on above: Performed By: #### L 500.2500, L300.4310, L300.3900, BTS, L100.0100 ####[facility] [address] [place], [address] Sodium [Moles/Vol] 140 mmol/L Normal 133-145 [facility] Comment on above: Performed By: #### L 500.2500, L300.4310, L300.3900, BTS, L100.0100 ####[facility] [address] [place], [address] Urea nitrogen [Mass/Vol] 16 mg/dL Normal 4-19 [facility] Comment on above: Performed By: #### L 500.2500, L300.4310, L300.3900, BTS, L100.0100 ####[facility] [address] [place], [address] Basophil percentageOrdered B y: Guerrero Valerio on 03-01-2025 Basophils/100 WBC (Bld) 0.2 % 0-1 [facility] Brain/Head without Contrasto n 03-01-2025 Brain/Head without Contrast Normal [facility] CBC W/Diff, Automatedon 04- Absolute Lymph 0.63 X10 3/uL Low 0.83-4.51 [facility] Comment on above: Performed By: #### L 500.2500, L300.4310, L300.3900, BTS, L100.0100 ####[facility] [address] [place], [address] Absolute Neut 17.3 X10 3/uL High 2.0-7.7 [facility] Comment on above: Performed By: #### L 500.2500, L300.4310, L300.3900, BTS, L100.0100 ####[facility] [address] [place], [address] Basophils/100 WBC (Bld) 0.2 % Normal 0-1 [facility] Comment on above: Performed By: #### L 500.2500, L300.4310, L300.3900, BTS, L100.0100 ####[facility] [address] [place], [address] Eosinophils/100 WBC (Bld) 0.0 % Normal 0-5 [facility] Comment on above: Performed By: #### L 500.2500, L300.4310, L300.3900, BTS, L100.0100 ####[facility] [address] [place], [address] Erythrocyte distribution width (RBC) [Ratio] 12.9 % Normal 11.6-14.6 [facility] Comment on above: Performed By: #### L 500.2500, L300.4310, L300.3900, BTS, L100.0100 ####[facility] [address] [place], [address] Hematocrit (Bld) [Volume fraction] 37.3 % Normal 37-47 [facility] Comment on above: Performed By: #### L 500.2500, L300.4310, L300.3900, BTS, L100.0100 ####[facility] [address] [place], [address] Hemoglobin (Bld) [Mass/Vol] 13.0 g/dL Normal 12.0-15.0 [facility] Comment on above: Performed By: #### L 500.2500, L300.4310, L300.3900, BTS, L100.0100 ####[facility] [address] [place], [address] IG% 0.600 Normal 0.0-0.9 [facility] Comment on above: Result Comment: IG% - Immature Granulocytes (promyelocytes, myelocytes andmetamyelocytes) > 1% indicates that a LEFT SHIFT is Present. Performed By: #### L 500.2500, L300.4310, L300.3900, BTS, L100.0100 ####[facility] [address] [place], [address] Lymphocytes/100 WBC (Bld) 3.3 % Low 19-41 [facility] Comment on above: Performed By: #### L 500.2500, L300.4310, L300.3900, BTS, L100.0100 ####[facility] [address] [place], [address] MCH (RBC) [Entitic mass] 30.4 pg Normal 27.0-32.0 [facility] Comment on above: Performed By: #### L 500.2500, L300.4310, L300.3900, BTS, L100.0100 ####[facility] [address] [place], [address] MCHC (RBC) [Mass/Vol] 34.9 g/dL Normal 32-36 [facility] Comment on above: Performed By: #### L 500.2500, L300.4310, L300.3900, BTS, L100.0100 ####[facility] [address] [place], [address] MCV (RBC) [Entitic vol] 87.1 fL Normal 81-99 [facility] Comment on above: Performed By: #### L 500.2500, L300.4310, L300.3900, BTS, L100.0100 ####[facility] [address] [place], [address] Monocytes/100 WBC (Bld) 3.8 % Normal 0-10 [facility] Comment on above: Performed By: #### L 500.2500, L300.4310, L300.3900, BTS, L100.0100 ####[facility] [address] [place], [address] Neutrophils/100 WBC (Bld) 92.1 % High 47-70 [facility] Comment on above: Performed By: #### L 500.2500, L300.4310, L300.3900, BTS, L100.0100 ####[facility] [address] [place], [address] Nucleated RBC (Bld) [#/Vol] 0 10*3/uL Normal 0-5 [facility] Comment on above: Performed By: #### L 500.2500, L300.4310, L300.3900, BTS, L100.0100 ####[facility] [address] [place], [address] Platelet mean volume (Bld) [Entitic vol] 10.3 fL Normal 6.2-12.0 [facility] Comment on above: Performed By: #### L 500.2500, L300.4310, L300.3900, BTS, L100.0100 ####[facility] [address] [place], [address] Platelets (Bld) [#/Vol] 239 10*3/uL Normal 150-450 [facility] Comment on above: Performed By: #### L 500.2500, L300.4310, L300.3900, BTS, L100.0100 ####[facility] [address] [place], [address] RBC (Bld) [#/Vol] 4.28 10*6/uL Normal 4.2-5.4 [facility] Comment on above: Performed By: #### L 500.2500, L300.4310, L300.3900, BTS, L100.0100 ####[facility] [address] [place], [address] RDW SD 40.5 fl Normal 35.1-43.9 [facility] Comment on above: Performed By: #### L 500.2500, L300.4310, L300.3900, BTS, L100.0100 ####[facility] [address] [place], [address] WBC (Bld) [#/Vol] 18.8 10*3/uL High 4.4-11.0 [facility] Comment on above: Performed By: #### L 500.2500, L300.4310, L300.3900, BTS, L100.0100 ####[facility] [address] [place], [address] Carbon dioxide, total [Moles /volume] in Central venous bloodOrdered By: Guerrero Valerio on 03-01-2025 CO2 [Moles/Vol] 25.2 mmol/L 21.0-32.0 [facility] Chest 1 View (Portable)on Chest 1 View (Portable) Normal [facility] Chloride assayOrdered By: Christophe Valerio on 03-01-2025 Chloride [Moles/Vol] 104 mmol/L 98-108 [facility] Comprehensive Metabolic Prof ilon 03-01-2025 ALB Normal 3.4-4.8 [facility] Comment on above: Result Comment: PER KAMLA IN MS3 WANTS TO CANCEL CMP. PT WILL HAVE MORNINGLABS THEN. Performed By: #### L 500.4050 ####[facility] [address] [place], [address] ALK PHOS Normal 35-104 [facility] Comment on above: Result Comment: PER KAMLA IN MS3 WANTS TO CANCEL CMP. PT WILL HAVE MORNINGLABS THEN. Performed By: #### L 500.4050 ####[facility] [address] [place], [address] ALT Normal <=34 [facility] Comment on above: Result Comment: PER KAMLA IN MS3 WANTS TO CANCEL CMP. PT WILL HAVE MORNINGLABS THEN. Performed By: #### L 500.4050 ####[facility] [address] [place], [address] AST Normal <=31 [facility] Comment on above: Result Comment: PER KAMLA IN MS3 WANTS TO CANCEL CMP. PT WILL HAVE MORNINGLABS THEN. Performed By: #### L 500.4050 ####[facility] [address] [place], [address] BUN Normal 4-19 [facility] Comment on above: Result Comment: PER KAMLA IN MS3 WANTS TO CANCEL CMP. PT WILL HAVE MORNINGLABS THEN. Performed By: #### L 500.4050 ####[facility] [address] [place], [address] BUN/CRE Normal 10-20 [facility] Comment on above: Result Comment: PER KAMLA IN MS3 WANTS TO CANCEL CMP. PT WILL HAVE MORNINGLABS THEN. Performed By: #### L 500.4050 ####[facility] [address] [place], [address] Calcium Normal 7.6-11.0 [facility] Comment on above: Result Comment: PER KAMLA IN MS3 WANTS TO CANCEL CMP. PT WILL HAVE MORNINGLABS THEN. Performed By: #### L 500.4050 ####[facility] [address] [place], [address] CL Normal 98-108 [facility] Comment on above: Result Comment: PER KAMLA IN MS3 WANTS TO CANCEL CMP. PT WILL HAVE MORNINGLABS THEN. Performed By: #### L 500.4050 ####[facility] [address] [place], [address] CO2 Normal 21.0-32.0 [facility] Comment on above: Result Comment: PER KAMLA IN MS3 WANTS TO CANCEL CMP. PT WILL HAVE MORNINGLABS THEN. Performed By: #### L 500.4050 ####[facility] [address] [place], [address] CREAT,SERUM Normal 0.70-1.20 [facility] Comment on above: Result Comment: PER KAMLA IN MS3 WANTS TO CANCEL CMP. PT WILL HAVE MORNINGLABS THEN. Performed By: #### L 500.4050 ####[facility] [address] [place], [address] eGFR Normal >60 [facility] Comment on above: Result Comment: PER KAMLA IN MS3 WANTS TO CANCEL CMP. PT WILL HAVE MORNINGLABS THEN. Performed By: #### L 500.4050 ####[facility] [address] [place], [address] GAP Normal 5-15 [facility] Comment on above: Result Comment: PER KAMLA IN MS3 WANTS TO CANCEL CMP. PT WILL HAVE MORNINGLABS THEN. Performed By: #### L 500.4050 ####[facility] [address] [place], [address] GLU Normal 70-99 [facility] Comment on above: Result Comment: PER KAMLA IN MS3 WANTS TO CANCEL CMP. PT WILL HAVE MORNINGLABS THEN. Performed By: #### L 500.4050 ####[facility] [address] [place], [address] Potassium Normal 3.3-5.1 [facility] Comment on above: Result Comment: PER KAMLA IN MS3 WANTS TO CANCEL CMP. PT WILL HAVE MORNINGLABS THEN. Performed By: #### L 500.4050 ####[facility] [address] [place], [address] T BILI Normal 0.00-1.30 [facility] Comment on above: Result Comment: PER KAMLA IN MS3 WANTS TO CANCEL CMP. PT WILL HAVE MORNINGLABS THEN. Performed By: #### L 500.4050 ####[facility] [address] [place], [address] T PROT Normal 5.9-8.4 [facility] Comment on above: Result Comment: PER KAMLA IN MS3 WANTS TO CANCEL CMP. PT WILL HAVE MORNINGLABS THEN. Performed By: #### L 500.4050 ####[facility] [address] [place], [address] Comprehensive Metabolic Profil Normal 133-145 [facility] Comment on above: Result Comment: PER KAMLA IN MS3 WANTS TO CANCEL CMP. PT WILL HAVE MORNINGLABS THEN. Performed By: #### L 500.4050 ####[facility] [address] [place], [address] Emergency Department Summary on 03-01-2025 Emergency Department Summary Normal [facility] Eosinophil percentageOrdered By: Guerrero Valerio on 03-01-2025 Eosinophils/100 WBC (Bld) 0.0 % 0-5 [facility] Erythrocyte distribution wid th (RBC) [Ratio]Ordered By: Guerrero Valerio on 03-01-2025 Erythrocyte distribution width (RBC) [Entitic vol] 40.5 fL 35.1-43.9 [facility] Erythrocyte distribution wid th ratioOrdered By: Guerrero Valerio on 03-01-2025 Erythrocyte distribution width (RBC) [Ratio] 12.9 % 11.6-14.6 [facility] Estimation of creatinine winston aranceOrdered By: Guerrero Valerio on 03-01-2025 Estimated Creatinine Clearance Calc 37.62 ml/min Low 50-250 [facility] Extremity Lower without Cont raon 03-01-2025 Extremity Lower without Contra Normal [facility] GFR/1.73 sq M.predicted arti g non-blacks MDRD (S/P/Bld) [Vol rate/Area]Ordered By: Guerrero Valerio on 03-01-2025 Estimated GFR (MDRD) Non-Af Amer 63 >60 [facility] Comment on above: mL/min/1.73m2 CKD-EP I Creatinine Equation (2020) H AND P Exam - Hospital[place] 03-01-2025 H&P Exam - Hospitalist Normal [facility] HIP, UNI W/ Pelvis 2-3 Views on 03-01-2025 HIP, UNI W/ Pelvis 2-3 Views Normal [facility] Hematocrit Auto (Bld) [Volum e fraction]Ordered By: Guerrero Valerio on 03-01-2025 Hematocrit (Bld) [Volume fraction] 37.3 % 37-47 [facility] Hemoglobin measurementOrdere d By: Guerrero Valerio on 03-01-2025 Hemoglobin (Bld) [Mass/Vol] 13.0 g/dL 12.0-15.0 [facility] Immature granulocytes/100 WB C Auto (Bld)Ordered By: Guerrero Valerio on 03-01-2025 Immature granulocytes/100 WBC (Bld) 0.600 % 0.0-0.9 [facility] Comment on above: IG% - Immature Granu locytes (promyelocytes, myelocytes and metamyelocytes) > 1% indicates that a LEFT SHIFT is Present. International normalized rat io (INR) calculationOrdered By: Guerrero Valerio on 03-01-2025 INR Coag (Bld) [Relative time] 1.1 {INR} [facility] Knee 1 or 2 Viewson 03-01-20 25 Knee 1 or 2 Views Normal [facility] Lymphocytes Auto (Unsp spec) [#/Vol]Ordered By: Guerrero Valerio on 03-01-2025 Lymphocytes (Bld) [#/Vol] 0.63 10*3/uL Low 0.83-4.51 [facility] Lymphocytes/100 WBC Auto (Un sp spec)Ordered By: Guerrero Valerio on 03-01-2025 Lymphocytes/100 WBC (Bld) 3.3 % Low 19-41 [facility] MCV (mean corpuscular volume ) determinationOrdered By: Guerrero Valerio on 03-01-2025 MCV (RBC) [Entitic vol] 87.1 fL 81-99 [facility] Mean corpuscular hemoglobin (MCH) determinationOrdered By: Guerrero Valerio on 03-01-2025 MCH (RBC) [Entitic mass] 30.4 pg 27.0-32.0 [facility] Mean corpuscular hemoglobin concentration (MCHC) determinationOrdered By: Guerrero Valerio on 03-01-2025 MCHC (RBC) [Mass/Vol] 34.9 g/dL 32-36 [facility] Mean platelet volume determi nationOrdered By: Guerrero Valerio on 03-01-2025 Platelet mean volume (Bld) [Entitic vol] 10.3 fL 6.2-12.0 [facility] Monocyte percentageOrdered B y: Guerrero Valerio on 03-01-2025 Monocytes/100 WBC (Bld) 3.8 % 0-10 [facility] Neutrophil percentageOrdered By: Guerrero Valerio on 03-01-2025 Neutrophils/100 WBC (Bld) 92.1 % High 47-70 [facility] Nucleated red blood cell per centageOrdered By: Guerrero Valerio on 03-01-2025 Nucleated RBC/100 WBC (Bld) [Ratio] 0 % 0-5 [facility] Partial Thromboplast Timeon 03-01-2025 aPTT Coag (Bld) [Time] 25.8 s Normal 24.1-36.2 [facility] Comment on above: Performed By: #### L 500.2500, L300.4310, L300.3900, BTS, L100.0100 ####[facility] [address] [place], [place], [id number] Platelet countOrdered By: Christophe Valerio on 03-01-2025 Platelets (Bld) [#/Vol] 239 10*3/uL 150-450 [facility] Potassium (Unsp spec) [Mass/ Vol]Ordered By: Guerrero Valerio on 03-01-2025 Potassium [Moles/Vol] 4.2 mmol/L 3.3-5.1 [facility] Prothrombin Time w/INRon INR Coag (PPP) [Relative time] 1.1 {INR} Normal [facility] Comment on above: Performed By: #### L 500.2500, L300.4310, L300.3900, BTS, L100.0100 ####[facility] [address] [place], [address] PT Coag (PPP) [Time] 14.9 s Normal 11.7-14.9 [facility] Comment on above: Performed By: #### L 500.2500, L300.4310, L300.3900, BTS, L100.0100 ####[facility] [address] [place], [place], [address] Prothrombin timeOrdered By: Guerrero Valerio on 03-01-2025 PT Coag (PPP) [Time] 14.9 s 11.7-14.9 [facility] RBC Auto (Bld) [#/Vol]Ordere d By: Guerrero Valerio on 03-01-2025 RBC (Bld) [#/Vol] 4.28 10*6/uL 4.2-5.4 [facility] Serum creatinine measurement (mass/volume)Ordered By: Guerrero Valerio on 03-01-2025 Creatinine [Mass/Vol] 0.90 mg/dL 0.70-1.20 [facility] Serum glucose measurement (m ass/volume)Ordered By: Guerrero Valerio on 03-01-2025 Glucose [Mass/Vol] 148 mg/dL High 70-99 [facility] Serum or plasma calcium thomas urement (mass/volume)Ordered By: Guerrero Valerio on 03-01-2025 Calcium [Mass/Vol] 9.2 mg/dL 7.6-11.0 [facility] Serum or plasma urea nitroge n measurement (mass/volume)Ordered By: Guerrero Valerio on 03-01-2025 Urea nitrogen [Mass/Vol] 16 mg/dL 4-19 [facility] Sodium levelOrdered By: Liborio Valerio on 03-01-2025 Sodium [Moles/Vol] 140 mmol/L 133-145 [facility] Type AND Screenon 03-01-2025 Ab SCREEN GEL Negative Normal [facility] Comment on above: Order Comment: S Performed By: #### L 500.2500, L300.4310, L300.3900, BTS, L100.0100 ####[facility] [address] [place], [address] Vitamin D, 25-hydroxyOrdered By: Roro Long on 03-01-2025 Vitamin D 25-Hydroxy 29.9 ng/mL Low 30-100 [facility] Comment on above: Vitamin D StatusDefi ciency: <20 ng/mL (50nmol/L)Insufficiency: 20-30 ng/mL (50-75 nmol/L)Sufficiency: 30-100 ng/mL (75-250 nmol/L)Toxicity: >100 ng/mL (>250 nmol/L) Vitamin D,25 Hydroxyon 03-01 Vitamin D 25-OH 29.9 ng/mL Low 30-100 [facility] Comment on above: Result Comment: Vaishnavi min D StatusDeficiency: <20 ng/mL (50nmol/L)Insufficiency: 20-30 ng/mL (50-75 nmol/L)Sufficiency: 30-100 ng/mL (75-250 nmol/L)Toxicity: >100 ng/mL (>250 nmol/L) Performed By: #### L 506.1001 ####[facility] [address] [place], [place], [id number] White blood cell (WBC) count Ordered By: Guerrero Valerio on 03-01-2025 WBC (Bld) [#/Vol] 18.8 10*3/uL High 4.4-11.0 [facility] aPTT Coag (PPP) [Time]Ordere d By: Guerrero Valerio on 03-01-2025 aPTT Coag (Bld) [Time] 25.8 s 24.1-36.2 [facility] Markus 02-27-2025 CNPN Telephone (ZOEYWST) CRYSTALMICHAELA DORMAN ([id number]) 1940 F Date Time Provider Department 02/27/25 [...] that her mother is currently living on [address] Stahl is concerned about mother living by herself. There are cameras set up in [facility] to keep watch on patient in case of falls. Discussed different social service agencies and services they offer ie. [facility] Home [facility] and Lala Allison. Thomas provided patient daughter with Lala Huntley phone number for help with looking at memory care options in the area. Thomas and daughter also discussed different local memory care options ie. [place], [place], [facility], [facility]. Maribeth notes that her mom was not interested in any place that "looks like a usp." Discussed the different options above and layout and levels of care they offer. 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 looking at level of care memory [...] Encounter Status:Closed by KENTRELL MONTGOMERY on 03/02/25 [facility] Bacteria Ur Culton Bacteria identified Cx [...] , Intermediate >32 , Resistant >64 Abnormal [facility] Comment on above: Performed By: #### 6 30-4 ####[facility] [id number] [address] [place] [facility] CNOVon 02-19-2025 CNOV Office Visit (UCWSTR ) MICHAELA BRANDT ([id number]) 1940 F Date Time Provider Department 02/19/25 11:30 AM WALT ROBLES [facility] During your visit today, we recorded the following information about you: Temperature Pulse Respiration Blood pressure 98.7 degrees 70/minute 22/minute 145/79 Weight 57 kg Walt Robles APRN.FAMILY LAW [employer]GAL 02/19/2025 12:00 PM Signed [facility] [...] history is provided by the patient. No bridge manager was used. Review of Systems Constitutional: Negative. [...] be changed please change accordingly. Walt Robles APRN.FAMILY LAW [employer] MDM Procedures Allergies As of Date: 02/19/2025 (No Known Allergies) Date Reviewed: 02/19/2025 Reviewed by: Carolina Hastings LPN - Fully Assessed Reason for Visit: Urinary Problem [252] Cmt: Brain fog, 1 day Primary Visit Diagnosis:Recurrent UTI (urinary tract infection) [N39.0] Order(s):UA DIP, URINE (POC) [[id number]] Order #: [id number]. #:[id number] cephALEXin (KEFLEX) 500 mg capsuleTake 1 capsule [...] 0.5 mg (more content not included)... Normal [facility] CNPNon 02-19-2025 CNPN Telephone ([facility]) MICHAELA BRANDT ([id number]) 1940 F Date Time Provider Department 02/19/25 [facility] ROBL[facility] During your visit today, we recorded the following information about you: Walt Robles APRN.FAMILY LAW [employer]GAL 02/19/2025 3:04 PM Signed Please call patient and have her come back in and give a urine culture. Colten Greer MA 02/19/2025 3:21 PM Signed Spoke with patient's daughter. Daughter will bring patient in for urine. Coletn Greer MA Allergies As of Date: 02/19/2025 (No Known Allergies) Date Reviewed: 02/19/2025 Reviewed by: Carolina Hastings LPN - Fully Assessed Reason for Visit: Clinical Update [1735] Primary Visit Diagnosis:Urinary frequency [R35.0] Order(s):BACTERIAL CULTURE, URINE [SQURCUL] Order #: [id number] Prescriptions as of 02/19/2025 - cephALEXin (KEFLEX) [...] Status:Closed by COLTEN GREER on 02/19/25 Normal [facility] UA DIP, URINE (POC)on 2024 BILIRUBIN UA (POCT) Negative Negative [facility] CLARITY UA (POCT) [facility] COLOR UA (POCT) Dark yellow [facility] d [facility] GLUCOSE UA (POCT) Negative Negative mg/dL [facility] Hemoglobin Ql (U) Trace-intact Abnormal Negative [facility] Interpretation and review of laboratory results Abnormal [facility] KETONE UA (POCT) Negative Negative mg/dL [facility] LEUKOCYTES UA (POCT) Trace Abnormal Negative [facility] NITRITE UA (POCT) Positive Abnormal Negative [facility] PH UA (POCT) 5.5 4.5 - 8.0 [facility] Protein Ql (U) Negative Negative mg/dL [facility] SPECIFIC GRAVITY UA (POCT) 1.025 1.005 - 1.030 [facility] UROBILINOGEN UA (POCT) 1 Supriya l E.U./dL [facility] Location:[address], [place], [place], [id number] [place] [address] POINT OF CARE [facility] CNOVon 02-18-2025 CNOV Office Visit (INTMWS ) MICHAELA BRANDT ([id number]) 1940 F Date Time Provider Department 02/18/25 10:20 AM MARIPOSA MÁRQUEZ During your visit today, we recorded the following information about you: Pulse Respiration Blood pressure Weight 74/minute 16/minute 122/80 57.6 kg Mariposa Márquez APRN.CNP 02/18/2025 4:19 PM Signed CC: Patient [...] Vaccine(1) due on 07/20/2024 Covid-19 Vaccine( - 2023- season) due on 07/20/2024 Advance Directive Discussion [...] occur. Patient agreeable to treatment plan. Mariposa Márquez APRN.ARIEL Medical Decision Making: Problems: Minimal: Self-limited [...] of rig (more content not included)... Normal [facility] TSH SerPl-aCncon 02-17-2025 TSH Qn 1.190 m[IU]/L Normal 0.270-4.200 [facility] Comment on above: Order Comment: Speci men Type: BLOOD SPECIMENOrdering Facility: [facility] Address: [address] [place], [place] [address] [address] Performed By: #### 3 016-3 ####[facility] [id number] JES BROWN [address] CNOVon 02-04-2025 CNOV Office Visit (GERIWR ) MICHAELA BRANDT ([id number]) 1940 F Date Time Provider Department 02/04/25 [...] past week. Michaela reports a sensation of "plugged" ears and has a history of regular [...] NECK: Suppl (more content not included)... Normal [facility] MR Brain WO contraston 01-24 * * *Final Report* * * DATE OF EXAM: Jan 24 2025 2:05PM [facility] 3015 - MRI BRAIN W QUANT [...] to 1.7; Will 2008; also Balbir 2010). [facility] Provider, Johnnie Langley - 01/24/2025 * * *Final Report* * * DATE OF EXAM: Jan 24 2025 2:05PM [facility] 3015 - MRI BRAIN W QUANT WO IVCON / PROCEDURE REASON: Cognitive impairment, mild, so stated * * * * Physician Interpretation * * * * EXAMINATION: MRI 3D BRAIN QUANT, MRI BRAIN W QUANT WO IVCON CLINICAL HISTORY: TECHNIQUE: Axial ISREAL FLAIR, ISREAL T2, diffusion and susceptibility weighted imaging without contrast, using the ADNI dementia protocol and 3-D post-processing using the Libratone software at an independent workstation with concurrent [...] = Focal Lesions 2 = Beginning of [place] 3 = Diffuse Involvement of Entire Region [...] 100] (%). Age-matched (more content not included)... [facility] MR Unspecified body region 3 D post processingon 03-08-2025 * * *Final Report* * * DATE OF EXAM: Jan 24 2025 2:05PM [facility] [id number] - MRI 3D BRAIN QUANT / PROCEDURE REASON: Cognitive impairment, mild, so stated * * * * Physician Interpretation * * * * EXAMINATION: MRI 3D BRAIN QUANT, MRI BRAIN W QUANT WO IVCON CLINICAL HISTORY: TECHNIQUE: Axial ISREAL FLAIR, ISREAL T2, diffusion and susceptibility weighted imaging without contrast, using the ADNI dementia protocol and 3-D post-processing using the Libratone software at an independent workstation with concurrent [...] to 1.7; Will 2008; also Balbir 2010). [facility]25 * * *Final Report* * * DATE OF EXAM: Jan 24 2025 2:05PM [facility] 7867 - MRI 3D BRAIN QUANT [...] = Focal Lesions 2 = Beginning of [place] 3 = Diffuse Involvement of Entire Region [...] (%). Age-matched referenc (more content not included)... [facility] MRI 3D BRAIN QUANTon 025 MRI 3D BRAIN QUANT * * *Final Report* * * DATE OF EXAM: Jan 24 2025 2:05PM [facility] 7867 - MRI 3D BRAIN QUANT / PROCEDURE REASON: Cognitive impairment, mild, so stated * * * * Physician Interpretation * * * * EXAMINATION: MRI 3D BRAIN QUANT, MRI BRAIN W QUANT WO IVCON CLINICAL HISTORY: TECHNIQUE: Axial ISREAL FLAIR, ISREAL T2, diffusion and susceptibility weighted imaging without contrast, using the ADNI dementia protocol and 3-D post-processing using the Libratone software at an independent workstation with concurrent [...] = Focal Lesions 2 = Beginning of [place] 3 = Diffuse Involvement of Entire Region Basal Ganglia Lesions: 0 = No Lesions 1 = 1 Focal Lesion (>5mm) 2 = >1 Focal Lesion (>5mm) 3 = Confluent Lesions Balbir B, et al. The clinical use of structural [...] results from the analysis charts for details. 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 [facility] MRI BRAIN W QUANT WO IVCONon 01-24-2025 MRI BRAIN W QUANT WO IVCON * * *Final Report* * * DATE OF EXAM: Jan 24 2025 2:05PM [facility] 3015 - MRI BRAIN W QUANT WO IVCON / PROCEDURE REASON: Cognitive impairment, mild, so stated * * * * Physician Interpretation * * * * EXAMINATION: MRI 3D BRAIN QUANT, MRI BRAIN W QUANT WO IVCON CLINICAL HISTORY: TECHNIQUE: Axial ISREAL FLAIR, ISREAL T2, diffusion and susceptibility weighted imaging without contrast, using the ADNI dementia protocol and 3-D post-processing using the Libratone software at an independent workstation with concurrent [...] = Focal Lesions 2 = Beginning of [place] 3 = Diffuse Involvement of Entire Region [...] Applicable to MRI and CT. Stroke. 32:1318 (2000). * Asymmetry index defined as difference between left and right volumes divided by mean or [(L-R/Mean) x 100] (%). Age-matched reference charts measure total hippocampal volume (% of intracranial volume). See results from the analysis charts for details. Welding Setter: MINDY Transcribe Date/Time (more content not included)... [facility] No Panel Informationon 01-24 IMPRESSION: * No [...] = Focal Lesions 2 = Beginning of [place] 3 = Diffuse Involvement of Entire Region [...] Applicable to MRI and CT. Stroke. 32:1318 (2000). * Asymmetry index defined as difference between left and right volumes divided by mean or [(L-R/Mean) x 100] (%). Age-matched reference charts measure total hippocampal volume (% of intracranial volume). See results from the analysis charts for details. Welding Setter: MINDY Transcribe Date/Time: Jan 24 2025 2:14P Dictated by : PUJA KIM MD This examination was interpreted and the report reviewed and electronically signed by: PUJA KIM MD on Jan 24 2025 2:29PM [facility] RADIOLOGY Radiology Study observation (narrative) [facility] No Panel InformationOrdered By: Ccf Provider on 01-24-2025 [facility] Urine Cultureon 01-19-2025 URC Normal [facility] Comment on above: Performed By: #### M 100.2200 ####[facility] [address] [place], [address] Absolute lymphocyte countOrd ered By: Dominik Galvan on 01-17-2025 Lymphocytes Auto (Unsp spec) [#/Vol] 1.42 10*3/uL 0.83-4.51 [facility] Absolute neutrophil countOrd ered By: Dominik Galvan on 01-17-2025 Neutrophils (Bld) [#/Vol] 10.3 10*3/uL High 2.0-7.7 [facility] Amorphous sediment detection in urine sediment by light microscopyOrdered By: Dominik Galvan on 01-17-2025 Amorphous sediment LM Ql (Urine sed) 1+ URATE [facility] Automated lymphocyte count a s percentage of total leukocytesOrdered By: Dominik Galvan on 01-17-2025 Lymphocytes/100 WBC Auto (Unsp spec) 11.0 % Low 19-41 [facility] BUN/creatinine ratioOrdered By: Dominik Galvan on 01-17-2025 Urea nitrogen/Creatinine [Mass ratio] 20.5 mg/mg High 10-20 [facility] Basophil percentageOrdered B y: Dominik Galvan on 01-17-2025 Basophils/100 WBC (Bld) 0.4 % 0-1 [facility] Bilirubin Test strip Ql (U)O rdered By: Dominik Galvan on 01-17-2025 Bilirubin Ql (U) Negative Negative [facility] Bilirubin, totalOrdered By: Dominik Galvan on 01-17-2025 Bilirubin [Mass/Vol] 1.24 mg/dL 0.00-1.30 [facility] Brain/Head without Contrasto n 01-17-2025 Brain/Head without Contrast Normal [facility] CBC W/Diff, Automatedon 03-0 Absolute Lymph 1.42 X10 3/uL Normal 0.83-4.51 [facility] Comment on above: Performed By: #### L 100.0100, L500.4050 ####[facility] [address] [place], [address] Absolute Neut 10.3 X10 3/uL High 2.0-7.7 [facility] Comment on above: Performed By: #### L 100.0100, L500.4050 ####[facility] [address] [place], [address] Basophils/100 WBC (Bld) 0.4 % Normal 0-1 [facility] Comment on above: Performed By: #### L 100.0100, L500.4050 ####[facility] [address] [place], [address] Eosinophils/100 WBC (Bld) 1.0 % Normal 0-5 [facility] Comment on above: Performed By: #### L 100.0100, L500.4050 ####[facility] [address] [place], [address] Erythrocyte distribution width (RBC) [Ratio] 13.3 % Normal 11.6-14.6 [facility] Comment on above: Performed By: #### L 100.0100, L500.4050 ####[facility] [address] [place], [address] Hematocrit (Bld) [Volume fraction] 35.9 % Low 37-47 [facility] Comment on above: Performed By: #### L 100.0100, L500.4050 ####[facility] [address] [place], [address] Hemoglobin (Bld) [Mass/Vol] 12.3 g/dL Normal 12.0-15.0 [facility] Comment on above: Performed By: #### L 100.0100, L500.4050 ####[facility] [address] [place], [address] IG% 0.400 Normal 0.0-0.9 [facility] Comment on above: Result Comment: IG% - Immature Granulocytes (promyelocytes, myelocytes andmetamyelocytes) > 1% indicates that a LEFT SHIFT is Present. Performed By: #### L 100.0100, L500.4050 ####[facility] [address] [place], [address] Lymphocytes/100 WBC (Bld) 11.0 % Low 19-41 [facility] Comment on above: Performed By: #### L 100.0100, L500.4050 ####[facility] [address] [place], [address] MCH (RBC) [Entitic mass] 29.9 pg Normal 27.0-32.0 [facility] Comment on above: Performed By: #### L 100.0100, L500.4050 ####[facility] [address] [place], [address] MCHC (RBC) [Mass/Vol] 34.3 g/dL Normal 32-36 [facility] Comment on above: Performed By: #### L 100.0100, L500.4050 ####[facility] [address] [place], [address] MCV (RBC) [Entitic vol] 87.3 fL Normal 81-99 [facility] Comment on above: Performed By: #### L 100.0100, L500.4050 ####[facility] [address] [place], [address] Monocytes/100 WBC (Bld) 8.1 % Normal 0-10 [facility] Comment on above: Performed By: #### L 100.0100, L500.4050 ####[facility] [address] [place], [address] Neutrophils/100 WBC (Bld) 79.1 % High 47-70 [facility] Comment on above: Performed By: #### L 100.0100, L500.4050 ####[facility] [address] [place], [address] Nucleated RBC (Bld) [#/Vol] 0 10*3/uL Normal 0-5 [facility] Comment on above: Performed By: #### L 100.0100, L500.4050 ####[facility] [address] [place], [address] Platelet mean volume (Bld) [Entitic vol] 10.5 fL Normal 6.2-12.0 [facility] Comment on above: Performed By: #### L 100.0100, L500.4050 ####[facility] [address] [place], [address] Platelets (Bld) [#/Vol] 169 10*3/uL Normal 150-450 [facility] Comment on above: Performed By: #### L 100.0100, L500.4050 ####[facility] [address] [place], [address] RBC (Bld) [#/Vol] 4.11 10*6/uL Low 4.2-5.4 [facility] Comment on above: Performed By: #### L 100.0100, L500.4050 ####[facility] [address] [place], [address] RDW SD 42.1 fl Normal 35.1-43.9 [facility] Comment on above: Performed By: #### L 100.0100, L500.4050 ####[facility] [address] [place], [address] WBC (Bld) [#/Vol] 13.0 10*3/uL High 4.4-11.0 [facility] Comment on above: Performed By: #### L 100.0100, L500.4050 ####[facility] [address] [place], [address] Carbon dioxide measurementOr dered By: Dominik Galvan on 01-17-2025 CO2 [Moles/Vol] 25.5 mmol/L 22.0-29.0 [facility] Chloride measurementOrdered By: Dominik Galvan on 01-17-2025 Chloride [Moles/Vol] 103 mmol/L 96-108 [facility] Comprehensive Metabolic Prof ilon 01-17-2025 Albumin [Mass/Vol] 4.2 g/dL Normal 3.4-4.8 [facility] Comment on above: Performed By: #### L 100.0100, L500.4050 ####[facility] [address] [place], [address] Albumin/Globulin [Mass ratio] 1.4 {ratio} Normal 0.9-2.4 [facility] Comment on above: Performed By: #### L 100.0100, L500.4050 ####[facility] [address] [place], [address] ALK PHOS 75 U/L Normal 35-104 [facility] Comment on above: Performed By: #### L 100.0100, L500.4050 ####[facility] [address] [place], [address] ALT [Catalytic activity/Vol] 9 U/L Normal <=34 [facility] Comment on above: Performed By: #### L 100.0100, L500.4050 ####[facility] [address] [place], [address] Anion gap [Moles/Vol] 12 mmol/L Normal 5-15 [facility] Comment on above: Performed By: #### L 100.0100, L500.4050 ####[facility] [address] [place], [address] AST [Catalytic activity/Vol] 19 U/L Normal <=31 [facility] Comment on above: Performed By: #### L 100.0100, L500.4050 ####[facility] [address] [place], [address] Bilirubin [Mass/Vol] 1.24 mg/dL Normal 0.00-1.30 [facility] Comment on above: Performed By: #### L 100.0100, L500.4050 ####[facility] [address] [place], [address] BUN/CRE 20.5 RATIO High 10-20 [facility] Comment on above: Performed By: #### L 100.0100, L500.4050 ####[facility] [address] [place], [address] Calcium [Mass/Vol] 9.7 mg/dL Normal 7.6-11.0 [facility] Comment on above: Performed By: #### L 100.0100, L500.4050 ####[facility] [address] [place], [address] Chloride [Moles/Vol] 103 mmol/L Normal 96-108 [facility] Comment on above: Performed By: #### L 100.0100, L500.4050 ####[facility] [address] [place], [address] CO2 [Moles/Vol] 25.5 mmol/L Normal 22.0-29.0 [facility] Comment on above: Performed By: #### L 100.0100, L500.4050 ####[facility] [address] [place], [address] Creatinine [Mass/Vol] 0.92 mg/dL Normal 0.70-1.20 [facility] Comment on above: Performed By: #### L 100.0100, L500.4050 ####[facility] [address] [place], [address] GFR/1.73 sq M.predicted among non-blacks MDRD (S/P/Bld) [Vol rate/Area] 61 mL/min/{1.73_m2} Normal >60 [facility] Comment on above: Result Comment: mL/m in/1.73m2 CKD-EPI Creatinine Equation (2020) Performed By: #### L 100.0100, L500.4050 ####[facility] [address] [place], [address] Globulin (S) [Mass/Vol] 3.0 g/dL Normal 2.2-4.2 [facility] Comment on above: Performed By: #### L 100.0100, L500.4050 ####[facility] [address] [place], [address] Glucose [Mass/Vol] 113 mg/dL High 70-99 [facility] Comment on above: Performed By: #### L 100.0100, L500.4050 ####[facility] [address] [place], [address] Potassium [Moles/Vol] 3.9 mmol/L Normal 3.3-5.1 [facility] Comment on above: Performed By: #### L 100.0100, L500.4050 ####[facility] [address] [place], [address] Sodium [Moles/Vol] 140 mmol/L Normal 133-145 [facility] Comment on above: Performed By: #### L 100.0100, L500.4050 ####[facility] [address] [place], [address] T PROT 7.2 g/dL Normal 5.9-8.4 [facility] Comment on above: Performed By: #### L 100.0100, L500.4050 ####[facility] [address] [place], [place], [address] Urea nitrogen [Mass/Vol] 19 mg/dL Normal 4-19 [facility] Comment on above: Performed By: #### L 100.0100, L500.4050 ####[facility] [address] [place], [place], [id number] Emergency Department Summary on 01-17-2025 Emergency Department Summary Normal [facility] Eosinophil percentageOrdered By: Dominik Galvan on 01-17-2025 Eosinophils/100 WBC (Bld) 1.0 % 0-5 [facility] Epithelial cells.squamous LM Ql (Urine sed)Ordered By: Dominik Galvan on 01-17-2025 Epithelial cells.squamous LM.HPF (Urine sed) [#/Area] 0 /[HPF] 5-10 [facility] Erythrocyte distribution wid th (RBC) [Ratio]Ordered By: Dominik Galvan on 01-17-2025 Erythrocyte distribution width (RBC) [Entitic vol] 42.1 fL 35.1-43.9 [facility] Erythrocyte distribution wid th ratioOrdered By: Dominik Galvan on 01-17-2025 Erythrocyte distribution width (RBC) [Ratio] 13.3 % 11.6-14.6 [facility] Erythrocyte distribution wid th standard deviationOrdered By: Dominik Galvan on 01-17-2025 Erythrocyte distribution width (RBC) [Ratio] 42.1 fl 35.1-43.9 [facility] GFR/1.73 sq M.predicted arti g non-blacks MDRD (S/P/Bld) [Vol rate/Area]Ordered By: Dominik Galvan on 01-17-2025 Estimated GFR (MDRD) Non-Af Amer 61 >60 [facility] Comment on above: mL/min/1.73m2 CKD-EP I Creatinine Equation (2020) Glomerular filtration rate ( GFR) estimation/1.73 sq m using serum, plasma, or whole bOrdered By: Dominik Galvan on 01-17-2025 GFR/1.73 sq M.predicted among non-blacks MDRD (S/P/Bld) [Vol rate/Area] 61 mL/min/{1.73_m2} >60 [facility] Comment on above: mL/min/1.73m2 CKD-EP I Creatinine Equation (2020) Glucose Ql (U)Ordered By: Octavio Galvan on 01-17-2025 Urine Glucose (UA) Normal mg/dl Normal [facility] Hematocrit Auto (Bld) [Volum e fraction]Ordered By: Dominik Galvan on 01-17-2025 Hematocrit (Bld) [Volume fraction] 35.9 % Low 37-47 [facility] Hemoglobin measurementOrdere d By: Dominik Galvan on 01-17-2025 Hemoglobin (Bld) [Mass/Vol] 12.3 g/dL 12.0-15.0 [facility] Immature granulocytes/100 WB C Auto (Bld)Ordered By: Dominik Galvan on 01-17-2025 Immature granulocytes/100 WBC (Bld) 0.400 % 0.0-0.9 [facility] Comment on above: IG% - Immature Granu locytes (promyelocytes, myelocytes and metamyelocytes) > 1% indicates that a LEFT SHIFT is Present. Influenza virus A and B and SARS-CoV-2 (COVID-19) and Respiratory syncytial virus RNAOrdered By: Dominik Galvan on 01-17-2025 SARS-CoV-2 (COVID-19) RNA DANIEL+probe Ql (Unsp spec) [facility] Ketones Test strip Ql (U)Ord ered By: Dominik Galvan on 01-17-2025 Ketones Ql (U) Negative Negative [facility] Laboratory - Chemistry and C hemistry - challengeOrdered By: Dominik Galvan on 01-17-2025 AST [Catalytic activity/Vol] 19 U/L <32 [facility] Lymphocytes Auto (Unsp spec) [#/Vol]Ordered By: Dominik Galvan on 01-17-2025 Lymphocytes (Bld) [#/Vol] 1.42 10*3/uL 0.83-4.51 [facility] Lymphocytes/100 WBC Auto (Un sp spec)Ordered By: Dominik Galvan on 01-17-2025 Lymphocytes/100 WBC (Bld) 11.0 % Low 19-41 [facility] M100.678on 01-17-2025 M100.678 Pending SARS-CoV-2 (COVID 19) Negative INFLUENZA A Negative INFLUENZA B Negative RSV PCR Negative Normal [facility] Comment on above: Performed By: #### M 100.678, L400.0001 ####[facility] [address] [place], [place], [id number] MCV (mean corpuscular volume ) determinationOrdered By: Dominik Galvan on 01-17-2025 MCV (RBC) [Entitic vol] 87.3 fL 81-99 [facility] Mean corpuscular hemoglobin (MCH) determinationOrdered By: Dominik Galvan on 01-17-2025 MCH (RBC) [Entitic mass] 29.9 pg 27.0-32.0 [facility] Mean corpuscular hemoglobin concentration (MCHC) determinationOrdered By: Dominik Galvan on 01-17-2025 MCHC (RBC) [Mass/Vol] 34.3 g/dL 32-36 [facility] Mean platelet volume determi nationOrdered By: Dominik Galvan on 01-17-2025 Platelet mean volume (Bld) [Entitic vol] 10.5 fL 6.2-12.0 [facility] Microscopic analysis of urin e for red blood cells (RBC)Ordered By: Dominik Galvan on 01-17-2025 Microscopic analysis of urine for red blood cells (RBC) 0-5 SEEN /hpf 0-5 [facility] Urine RBC 0-5 SEEN /hpf 0-5 [facility] Monocyte percentageOrdered B y: Dominik Galvan on 01-17-2025 Monocytes/100 WBC (Bld) 8.1 % 0-10 [facility] Mucus LM Ql (Urine sed)Order ed By: Dominik Galvan on 01-17-2025 Mucus Ql (Urine sed) 0 SEEN /hpf [facility] Neutrophil percentageOrdered By: Dominik Galvan on 01-17-2025 Neutrophils/100 WBC (Bld) 79.1 % High 47-70 [facility] Nitrite Test strip Ql (U)Ord ered By: Dominik Galvan on 01-17-2025 Nitrite Ql (U) Positive High Negative [facility] Nucleated red blood cell per centageOrdered By: Dominik Galvan on 01-17-2025 Nucleated RBC/100 WBC (Bld) [Ratio] 0 % 0-5 [facility] Platelet countOrdered By: Octavio Galvan on 01-17-2025 Platelets (Bld) [#/Vol] 169 10*3/uL 150-450 [facility] Protein Test strip Ql (U)Ord ered By: Dominik Galvan on 01-17-2025 Protein Ql (U) Negative Negative [facility] RBC Auto (Bld) [#/Vol]Ordere d By: Dominik Galvan on 01-17-2025 RBC (Bld) [#/Vol] 4.11 10*6/uL Low 4.2-5.4 [facility] Serum creatinine measurement (mass/volume)Ordered By: Dominik Galvan on 01-17-2025 Creatinine [Mass/Vol] 0.92 mg/dL 0.70-1.20 [facility] Serum globulin measurementOr dered By: Dominik Galvan on 01-17-2025 Globulin (S) [Mass/Vol] 3.0 g/dL 2.2-4.2 [facility] Serum glucose measurement (m ass/volume)Ordered By: Dominik Galvan on 01-17-2025 Glucose [Mass/Vol] 113 mg/dL High 70-99 [facility] Serum or plasma alanine tillman otransferase (ALT) measurementOrdered By: Dominik Galvan on 01-17-2025 ALT [Catalytic activity/Vol] 9 U/L <35 [facility] Serum or plasma albumin thomas urement (mass/volume)Ordered By: Dominik Galvan on 01-17-2025 Albumin [Mass/Vol] 4.2 g/dL 3.4-4.8 [facility] Serum or plasma albumin/glob ulin mass ratioOrdered By: Dominik Galvan on 01-17-2025 Albumin/Globulin [Mass ratio] 1.4 {ratio} 0.9-2.4 [facility] Serum or plasma alkaline mariah sphatase measurementOrdered By: Dominik Galvan on 01-17-2025 ALP [Catalytic activity/Vol] 75 U/L 35-104 [facility] Serum or plasma anion gap de termination (moles/volume)Ordered By: Dominik Galvan on 01-17-2025 Anion gap [Moles/Vol] 12 mmol/L 5-15 [facility] Serum or plasma calcium thomas urement (mass/volume)Ordered By: Dominik Gavlan on 01-17-2025 Calcium [Mass/Vol] 9.7 mg/dL 7.6-11.0 [facility] Serum or plasma potassium me asurementOrdered By: Dominik Galvan on 01-17-2025 Potassium [Moles/Vol] 3.9 mmol/L 3.3-5.1 [facility] Serum or plasma sodium measu rement (moles/volume)Ordered By: Dominik Galvan on 01-17-2025 Sodium [Moles/Vol] 140 mmol/L 133-145 [facility] Serum or plasma urea nitroge n measurement (mass/volume)Ordered By: Dominik Galvan on 01-17-2025 Urea nitrogen [Mass/Vol] 19 mg/dL 4-19 [facility] Squamous epithelial cells de tection in urine sediment by light microscopyOrdered By: Dominik Galvan on 01-17-2025 Epithelial cells.squamous LM Ql (Urine sed) 0-5 SEEN /hpf 5-10 [facility] Total proteinOrdered By: Shanna Galvan on 01-17-2025 Protein [Mass/Vol] 7.2 g/dL 5.9-8.4 [facility] Urinalysis, Completeon 01-17 AMORPHOUS 1+ URATE Normal [facility] Comment on above: Order Comment: SHAKA TER SPECIMEN Performed By: #### M 100.678, L400.0001 ####[facility] [address] [place], [address] BACTERIA 3+ /hpf Normal None Seen [facility] Comment on above: Order Comment: SHAKA TER SPECIMEN Performed By: #### M 100.678, L400.0001 ####[facility] [address] [place], [address] EPI,SQUAMOUS 0-5 SEEN Normal 5-10 [facility] Comment on above: Order Comment: SHAKA TER SPECIMEN Performed By: #### M 100.678, L400.0001 ####[facility] [address] [place], [address] RBC 0-5 SEEN Normal 0-5 [facility] Comment on above: Order Comment: SHAKA TER SPECIMEN Performed By: #### M 100.678, L400.0001 ####[facility] [address] [place], [address] WBC 0-5 SEEN Normal 0-5 [facility] Comment on above: Order Comment: SHAKA TER SPECIMEN Performed By: #### M 100.678, L400.0001 ####[facility] [address] [place], [address] Mucus Ql (Urine sed) 0 SEEN Normal [facility] Comment on above: Order Comment: SHAKA TER SPECIMEN Performed By: #### M 100.678, L400.0001 ####[facility] [address] [place], [address] Urine blood detectionOrdered By: Dominik Galvan on 01-17-2025 Urine Occult Blood 25 /ul High Negative [facility] Urine clarityOrdered By: Shanna Galvan on 01-17-2025 Clarity (U) Sl. Cloudy Clear [facility] Urine color determinationOrd ered By: Dominik Galvan on 01-17-2025 Color (U) Yellow Yellow [facility] Urine cultureOrdered By: Yodit Florence on 01-17-2025 Bacteria identified Cx Nom (U) Klebsiella pneumoniae sp pneum Abnormal [facility] Urine glucose detectionOrder ed By: Dominik Galvan on 01-17-2025 Glucose Ql (U) Normal mg/dl Normal [facility] Urine leukocyte esterase det ection by dipstickOrdered By: Dominik Galvan on 01-17-2025 Leukocyte esterase Test strip Ql (U) 25 /ul High Negative [facility] Urine pHOrdered By: Dominik oliveira on 01-17-2025 pH (U) 6.5 [pH] 5.0 - 8.0 [facility] Urine sediment bacteria coun t by microscopy (number/high power field)Ordered By: Dominik Galvan on 01-17-2025 Bacteria LM.HPF (Urine sed) [#/Area] 3 /[HPF] None Seen [facility] Urine specific gravity measu rementOrdered By: Dominik Galvan on 01-17-2025 Specific gravity (U) [Rel density] 1.015 1.002-1.030 [facility] Urine urobilinogen measureme ntOrdered By: Dominik Galvan on 01-17-2025 Urobilinogen Ql (U) 4 mg/dl High Normal [facility] Urobilinogen Ql (U)Ordered B y: Dominik Galvan on 01-17-2025 Urobilinogen (U) [Mass/Vol] 4 mg/dL High Normal [facility] White blood cell (WBC) count Ordered By: Dominik Galvan on 01-17-2025 WBC (Bld) [#/Vol] 13.0 10*3/uL High 4.4-11.0 [facility] White blood cell countOrdere d By: Dominik Galvan on 01-17-2025 Urine WBC 0-5 SEEN /hpf 0-5 [facility] White blood cell count 0-5 SEEN /hpf 0-5 [facility] CNOVon 12-23-2024 CNOV Office Visit (UROLWS ) MICHAELA BRANDT ([id number]) 1940 F Date Time Provider Department 12/23/24 10:00 AM TOM BALTAZAR During your visit today, we recorded the following information about you: Temperature Pulse Respiration Blood pressure 97.4 degrees 80/minute 12/minute 144/64 Weight 59.9 kg Tom Baltazar PA-C 12/23/2024 3:21 PM Addendum [facility] NEW PATIENT CLINIC NOTE [...] Clear PRO (more content not included)... Normal [facility] CNPNon 12-23-2024 ARIELN Telephone (UROLWS) MICHAELA BRANDT ([id number]) 1940 F Date Time Provider Department 12/23/24 TOM BALTAZAR During your visit today, we recorded the following information about you: Nusrat Palmer LPN 12/23/2024 4:46 PM Signed Faxed signed Authorization to Disclose Health Information to [facility] to office of Dr. Ovalle for urological records. RAMIREZ Valdes Kimberly, LPN 12/25/2024 12:50 PM Signed Received one lab from [facility] via [address]. Uploaded to [employer] via [address]. Nusrat Palmer LPN Allergies As of Date: 12/23/2024 (No Known Allergies) Date Reviewed: 12/23/2024 Reviewed by: Nusrat Palmer LPN - Fully Assessed Reason for Visit: Request Outside Medical Records [[id number]] Prescriptions as of 12/25/2024 - Catheter (SELF-CATHETER, FEMALE) [facility] Self [facility] four times daily - clonazePAM [...] Status:Closed by NUSRAT PALMER on 12/25/24 Normal [facility] UA DIP, URINE (POC)on 2024 BILIRUBIN UA (POCT) Negative Negative [facility] CLARITY UA (POCT) Clear [facility] COLOR UA (POCT) Yellow [facility] GLUCOSE UA (POCT) Negative Negative mg/dL [facility] Hemoglobin Ql (U) Trace-intact Abnormal Negative [facility] Interpretation and review of laboratory results Abnormal [facility] KETONE UA (POCT) Negative Negative mg/dL [facility] LEUKOCYTES UA (POCT) Trace Abnormal Negative [facility] (POCT) Negative Negative [facility] PH UA (POCT) 5.0 4.5 - 8.0 [facility] Protein Ql (U) Negative Negative mg/dL [facility] SPECIFIC GRAVITY UA (POCT) >=1.030 1.005 - 1.030 [facility] UROBILINOGEN UA (POCT) 0.2 Supriya l E.U./dL [facility] Location:[facility], [address], [place], [place], [id number] [place] [address] POINT OF CARE [facility] CNOVon 12-10-2024 FAVIO Office Visit (ELISAIWR ) MICHAELA BRANDT ([id number]) 1940 F Date Time Provider Department 12/10/24 12:30 PM DILLAN SANTIAGO During your visit today, we recorded the following information about you: Dillan Santiago MD 12/10/2024 5:10 PM Signed [facility] Initial Consult Michaela Brandt [...] on her own. They are looking into [facility]. Have cameras installed so they [...] she knows and feels. Just moved to [place] where her daughter lives after needing to sell her 3 story home to allow her to continue to live independently. [place] Is now in her own 1 level apartment. Needs assistance with medication dispensing and is needing support to drive her to appointments and to the store. Is hoping to go to [email or web address] a few times a week as well. [...] UTIs and followed with [place] urologist [place]. Denies abdominal pain, fever, chills, or dark/foul [...] secure location? No Social History: Primary language: Georgian Marital Status: Living situation: Home w/ Family Socially engaged? (participates in activities such as clubs, zoroastrian, community center, sports, games, visiting friends/relatives, etc?): YES once a week she goes out. Caregiver [place] and Stress Are your feeling overwhelmed? NO [...] (EUTHYROX) 50 (more content not included)... Normal [facility] Markus 12-10-2024 MIK Telephone (MANUEL) MICHAELA BRANDT ([id number]) 1940 F Date Time Provider Department 12/10/24 DILLAN SANTIAGO During your visit today, we recorded the following information about you: Colten Greer MA 12/10/2024 2:11 PM Signed Patient's daughter states that [facility] needs something from Dr. Santiago that its ok for patient to attend but not sure what exactly is needed. Phone call to [facility] for intake to contact our office to see what information they need from us. EVON Wade Mary, LPN 12/12/2024 2:29 PM Signed Called [facility] for 2nd time, left message with Intake. To call office back [place]# [phone] [address] RAMIREZ Lombardo December 12, 2024 2:29 PM Colten Greer MA 12/16/2024 2:34 PM Signed Spoke with Giovanni at [facility]. Once he has seen the patient [...] Encounter Status:Closed by COLTEN GREER on 12/16/24 [facility] ARYAMICHAELA MARTINEZ ([id number]) 1940 F Date Time Provider Department 11/21/24 MARIPOSA MÁRQUEZ During your visit today, we recorded the following information about you: Mariposa Márquez APRN.CNP 11/21/2024 9:19 AM Signed White blood count elevated. Any sign of infection? Urinary tract infection? Respiratory concerns? Thank you Mariposa Márquez APRN.FAMILY LAW PAR[employer]GAL Michaela Davila MA 11/21/2024 11:58 AM Signed [...] 2025. - Catheter (SELF-CATHETER, FEMALE) [facility] Self catheterizes four times daily - levothyroxine (EUTHYROX) 50 mcg tablet Take 1 tablet by mouth once daily. - escitalopram oxalate (LEXAPRO) 20 mg tablet Take 1 tablet by mouth once daily. - traZODone (DESYREL) 50 mg tablet Take 1 tablet by mouth daily at bedtime. Problem List As Of Date: 11/21/2024 (None) Encounter Status:Closed by MARIPOSA MÁRQUEZ on 03/30/25 Normal [facility] CBC panel Auto (Bld)on 11-17 Erythrocyte distribution width (RBC) [Ratio] 13.2 % Normal 11.5-15.0 [facility] Comment on above: Order Comment: Speci men Type: BLOOD SPECIMENOrdering Facility: [facility] Address: [address] [place] [address] Performed By: #### 5 8410-2 ####[facility] HOSPITALSOPHIE [id number] [place] [address] [place] [facility] Hematocrit (Bld) [Volume fraction] 37.7 % Normal 36.0-46.0 [facility] Comment on above: Order Comment: Speci men Type: BLOOD SPECIMENOrdering Facility: [facility] Address: [address] [place] [address] Performed By: #### 5 8410-2 ####[facility]PITALNCBRIGHAM [facility] [id number] [place] [address] [place] Hemoglobin (Bld) [Mass/Vol] 13.1 g/dL Normal 11.5-15.5 [facility] Comment on above: Order Comment: Speci men Type: BLOOD SPECIMENOrdering Facility: [facility] Address: [address] [place] [address] Performed By: #### 5 8410-2 ####[facility] HOS[facility]ITALNCLIA [id number] [place] [address] [place] MCH (RBC) [Entitic mass] 30.5 pg Normal 26.0-34.0 [facility] Comment on above: Order Comment: Speci men Type: BLOOD SPECIMENOrdering Facility: [facility] Address: [address] [place] [address] Performed By: #### 5 8410-2 ####[facility] HOSPITALNCLIA [id number] [place] [address] [place] MCHC (RBC) [Mass/Vol] 34.7 g/dL Normal 30.5-36.0 [facility] Comment on above: Order Comment: Speci men Type: BLOOD SPECIMENOrdering Facility: [facility] Address: [address] [place] [address] Performed By: #### 5 8410-2 ####[facility] ELIONerisNCSHUKRI [id number] [place] [address] [place] MCV (RBC) [Entitic vol] 87.9 fL Normal 80.0-100.0 [facility] Comment on above: Order Comment: Speci men Type: BLOOD SPECIMENOrdering Facility: [facility] Address: [address] [place] [address] Performed By: #### 5 8410-2 ####[facility] HOSPITALNCA [id number] [place] [address] [place] Nucleated RBC (Bld) [#/Vol] 10*3/uL Normal <0.01 [facility] Comment on above: Order Comment: Speci men Type: BLOOD SPECIMENOrdering Facility: [facility] Address: [address] [place] [address] Performed By: #### 5 8410-2 ####[facility] HOSPITALNCLIA [id number] [place] [address] [place] Platelet mean volume (Bld) [Entitic vol] 10.3 fL Normal 9.0-12.7 [facility] Comment on above: Order Comment: Speci men Type: BLOOD SPECIMENOrdering Facility: [facility] Address: [address] [place] [address] Performed By: #### 5 8410-2 ####[facility] HOSPITALNCLIA [id number] [place] [address] [place] Platelets (Bld) [#/Vol] 176 10*3/uL Normal 150-400 [facility] Comment on above: Order Comment: Speci men Type: BLOOD SPECIMENOrdering Facility: [facility] Address: [address] [place] [address] Performed By: #### 5 8410-2 ####[facility] ELIOSTONE MOUNTAINNCLIA [id number] [place] [address] [place] RBC (Bld) [#/Vol] 4.29 10*6/uL Normal 3.90-5.20 [facility] Comment on above: Order Comment: Speci men Type: BLOOD SPECIMENOrdering Facility: [facility] Address: [address] [place] [address] Performed By: #### 5 8410-2 ####[facility] HOSPITALNCLIA [id number] [place] [address] [place] WBC (Bld) [#/Vol] 13.60 10*3/uL High 3.70-11.00 [facility] Comment on above: Order Comment: Speci men Type: BLOOD SPECIMENOrdering Facility: [facility] Address: [address] [place] [address] Performed By: #### 5 8410-2 ####[facility] HOSPITALNCLIA [id number] [place] [address] [place] Comprehensive metabolic 2000 panelon 11-17-2024 Albumin [Mass/Vol] 4.0 g/dL Normal 3.9-4.9 [facility] Comment on above: Order Comment: Speci men Type: BLOOD SPECIMENOrdering Facility: [facility] Address: [address] [place] [address] Performed By: #### 2 4323-8 ####[facility] HOSPITALNCLIA [id number] [place] [address] [place] ALP [Catalytic activity/Vol] 78 U/L Normal 34-123 [facility] Comment on above: Order Comment: Speci men Type: BLOOD SPECIMENOrdering Facility: [facility] Address: [address] [place] [address] Performed By: #### 2 4323-8 ####[facility] RUPALI MILLTOWNCLIA [id number] [place] [address] [place] ALT [Catalytic activity/Vol] 5 U/L Low 7-38 [facility] Comment on above: Order Comment: Speci men Type: BLOOD SPECIMENOrdering Facility: [facility] Address: [address] [place] [address] Performed By: #### 2 4323-8 ####[facility] MILLTOWNCLIA [id number] [place] [address] [place] Anion gap [Moles/Vol] 14 mmol/L Normal 8-15 [facility] Comment on above: Order Comment: Speci men Type: BLOOD SPECIMENOrdering Facility: [facility] Address: [address] [place] [address] Performed By: #### 2 4323-8 ####[facility] HOSPITALWNCLIA [id number] [place] [address] [place] AST [Catalytic activity/Vol] 11 U/L Low 13-35 [facility] Comment on above: Order Comment: Speci men Type: BLOOD SPECIMENOrdering Facility: [facility] Address: [address] [place] [address] Performed By: #### 2 4323-8 ####[facility] HOSPITALWNCLIA [id number] [place] [address] [place] Bilirubin [Mass/Vol] 1.2 mg/dL Normal 0.2-1.3 [facility] Comment on above: Order Comment: Speci men Type: BLOOD SPECIMENOrdering Facility: [facility] Address: [address] [place] [address] Performed By: #### 2 4323-8 ####[facility] HOSPITALWNCLIA [id number] [place] [address] [place] Calcium [Mass/Vol] 9.3 mg/dL Normal 8.5-10.2 [facility] Comment on above: Order Comment: Speci men Type: BLOOD SPECIMENOrdering Facility: [facility] Address: [address] [place] [address] Performed By: #### 2 4323-8 ####[facility] HOSPITALNCLIA [id number] [place] [address] [place] Chloride [Moles/Vol] 104 mmol/L Normal 98-107 [facility] Comment on above: Order Comment: Speci men Type: BLOOD SPECIMENOrdering Facility: [facility] Address: [address] [place] [address] Performed By: #### 2 4323-8 ####[facility] HOSPITALNCLI [id number] [place] [address] [place] CO2 [Moles/Vol] 23 mmol/L Normal 22-30 [facility] Comment on above: Order Comment: Speci men Type: BLOOD SPECIMENOrdering Facility: [facility] Address: [address] [place] [address] Performed By: #### 2 4323-8 ####[facility] MARY HOSPITALLIA [id number] [place] [address] [place] Creatinine [Mass/Vol] 0.95 mg/dL Normal 0.58-0.96 [facility] Comment on above: Order Comment: Speci men Type: BLOOD SPECIMENOrdering Facility: [facility] Address: [address] [place] [address] Performed By: #### 2 4323-8 ####[facility] HOSPITALNCLIA [id number] [place] [address] [place] Creatinine and Glomerular filtration rate.predicted panel (S/P/Bld) 59 mL/min/1.73m??? Low >=60 [facility] Comment on above: Order Comment: Speci men Type: BLOOD SPECIMENOrdering Facility: [facility] Address: [address] [place] [address] Result Comment: Linda mated Glomerular Filtration Rate [...] actual GFR. Performed By: #### 2 4323-8 ####[facility] [id number] [place] [address] [place] Glucose [Mass/Vol] 119 mg/dL High 74-99 [facility] Comment on above: Order Comment: Speci ward Type: BLOOD SPECIMENOrdering Facility: [facility] Address: [address] [place] [address] Result Comment: The [place] Diabetes Association (ADA) provides guidance for cutoff [...] Standards of Medical Care in Diabetes 2016, [place] Diabetes Association. Diabetes Care. 2016.39(Suppl 1). Performed By: #### 2 4323-8 ####[facility] [id number] [place] [address] [place] Potassium [Moles/Vol] 3.7 mmol/L Normal 3.7-5.1 [facility] Comment on above: Order Comment: Speci men Type: BLOOD SPECIMENOrdering Facility: [facility] Address: [address] [place] [address] Performed By: #### 2 4323-8 ####[facility] MILLWNCLIA [id number] [place] [address] [place] Protein [Mass/Vol] 6.6 g/dL Normal 6.3-8.0 [facility] Comment on above: Order Comment: Speci men Type: BLOOD SPECIMENOrdering Facility: [facility] Address: [address] [place] [address] Performed By: #### 2 4323-8 ####[facility] HOSPITALNCLIA [id number] [place] [address] [place] Sodium [Moles/Vol] 141 mmol/L Normal 136-144 [facility] Comment on above: Order Comment: Speci men Type: BLOOD SPECIMENOrdering Facility: [facility] Address: [address] [place] [address] Performed By: #### 2 4323-8 ####[facility] ST[facility] MARY HOSPITALLIA [id number] [place] [address] [place] Urea nitrogen [Mass/Vol] 23 mg/dL High 7-21 [facility] Comment on above: Order Comment: Speci men Type: BLOOD SPECIMENOrdering Facility: [facility] Address: [address] [place] [address] Performed By: #### 2 4323-8 ####[facility] HOSPITALNCLIA [id number] [place] [address] [place] Lipid 1996 panelon 4 Cholesterol [Mass/Vol] 176 mg/dL Normal <200 [facility] Comment on above: Order Comment: Speci men Type: BLOOD SPECIMENOrdering Facility: [facility] Address: [address] [place] [address] Result Comment: <200 mg/dL, Desirable 200-239 mg/dL, Borderline high >239 mg/dL, High Performed By: #### 2 4331-1 ####[facility] LABCLIA [id number] [address] [address] [place] [facility] [id number] [place] [address] [place]#### 3051-0, 3024-7, 3016-3 ####[facility] LABCLIA [id number] [place] [address] [place] Cholesterol in HDL [Mass/Vol] 52 mg/dL Normal >39 [facility] Comment on above: Order Comment: Speci men Type: BLOOD SPECIMENOrdering Facility: [facility] Address: [address] [place] [address] Result Comment: 40-5 9 mg/dL, Acceptable >59 mg/dL, High: Negative risk factor for coronary heart disease <40 mg/dL, Low: Positive risk factor for coronary heart disease Performed By: #### 2 4331-1 ####[facility] LABCLIA [id number] [place] [address] [place] [facility] [id number] [place] [address] [place]#### 3051-0, 3024-7, 3016-3 ####[facility] LABCLIA [id number] [place] [address] [place] Cholesterol in LDL [Mass/Vol] 107 mg/dL High <100 [facility] Comment on above: Order Comment: Speci men Type: BLOOD SPECIMENOrdering Facility: [facility] Address: [address] [address] Result Comment: <100 mg/dL, Optimal 100-129 mg/dL, Near optimal/above optimal 130-159 mg/dL, Borderline high 160-189 mg/dL, High >189 mg/dL, Very high Secondary prevention optimal LDL Cholesterol levels are recommended to be < 70 mg/dL Performed By: #### 2 4331-1 ####[facility] LABCLIA [id number] [address] OF [facility] [id number] [place] [address] [place]#### 3051-0, 3024-7, 6-3 ####[facility] LABCLIA [id number] [place] [address] [place] Cholesterol in LDL/Cholesterol in HDL [Mass ratio] 2.06 {ratio} Normal <2.54 [facility] Comment on above: Order Comment: Speci men Type: BLOOD SPECIMENOrdering Facility: [facility] Address: [address] [place] [address] Result Comment: Chong brooke: 1. National Cholesterol Education Program ATP III Guideline At-A-Glance Quick Desk Reference: National Heart, Lung, and Blood [place]. National Institutes of Health. 2001: NIH Publication No. 01-3305. 2. An International Atherosclerosis Society position paper: global recommendations for the management of dyslipidemia: executive summary, Atherosclerosis. 2014: 232(2):410-413. Performed By: #### 2 4331-1 ####[facility] LABCLIA [id number] [address] [id number] [place] [address] [place]#### 3051-0, 7, 3 ####[facility] LABCLIA [id number] [place] [address] [place] Cholesterol in VLDL [Mass/Vol] 17 mg/dL Normal <30 [facility] Comment on above: Order Comment: Speci men Type: BLOOD SPECIMENOrdering Facility: [facility] Address: [address] [place] [address] Performed By: #### 2 4331-1 ####[facility] LABCLIA [id number] [address] STATES OF [facility] [id number] [place] [address] [place]#### 3051-0, 3024-7, 3016-3 ####[facility] LABCLIA [id number] [address] [address] [place] Cholesterol non HDL [Mass/Vol] 124 mg/dL Normal <130 [facility] Comment on above: Order Comment: Speci men Type: BLOOD SPECIMENOrdering Facility: [facility] Address: [address] [place] [address] Result Comment: <130 mg/dL, Optimal 130-159 mg/dL, Near optimal/above optimal 160-189 mg/dL, Borderline high 190-219 mg/dL, High >219 mg/dL, Very high Secondary prevention optimal non HDL Cholesterol levels are recommended to be <100 mg/dL Performed By: #### 2 4331-1 ####[facility] LABCLIA [id number] [place] [address] [facility] [id number] [place] [address] [place]#### 3051-0, 3024-7, 3016-3 ####[facility] LABCLIA [id number] [place] [address] [place] Cholesterol.total/Choles terol in HDL [Mass ratio] 3.38 {ratio} Normal <5.10 [facility] Comment on above: Order Comment: Speci men Type: BLOOD SPECIMENOrdering Facility: [facility] Address: [address] [address] Performed By: #### 2 4331-1 ####[facility] LABCLIA [id number] [address] [address] [place] STATES OF [facility] [id number] [place] [address] [place]#### 3051-0, 3024-7, 3016-3 ####[facility] LABCLIA [id number] [place] [address] [place] FASTING TIME 14 hrs Normal [facility] Comment on above: Order Comment: Speci men Type: BLOOD SPECIMENOrdering Facility: [facility] Address: [address] [place] [address] Performed By: #### 2 4331-1 ####[facility] LABCLIA [id number] [address] [id number] [place] [address] [place]#### 3051-0, 7, 63 ####[facility] LABCLIA [id number] [place] [address] [place] Triglyceride [Mass/Vol] 83 mg/dL Normal <150 [facility] Comment on above: Order Comment: Speci men Type: BLOOD SPECIMENOrdering Facility: [facility] Address: [address] [place] [address] Result Comment: <150 mg/dL, Normal 150-199 mg/dL, Borderline high 200-499 mg/dL, High >499 mg/dL, Very high Performed By: #### 2 4331-1 ####[facility] LABCLIA [id number] [place] [address] [place] [facility] [id number] [place] [address] [place]#### 3051-0, 3024-7, 3016-3 ####[facility] LABCLIA [id number] [place] [address] [place] T3Free [facility]-ncon 11-17-20 24 Free T3 [Mass/Vol] 2.4 pg/mL Normal 2.3-4.1 [facility] Comment on above: Order Comment: Speci men Type: BLOOD SPECIMENOrdering Facility: [facility] Address: [address] [place] [address] Performed By: #### 2 4331-1 ####[facility] LABCLIA [id number] [address] [id number] [place] [address] [place]#### 3051-0, 3024-7, 3016-3 ####[facility] LABCLIA [id number] [place] [address] [place] T4 Free SerPl-mCncon 024 Free T4 [Mass/Vol] 1.2 ng/dL Normal 0.9-1.7 [facility] Comment on above: Order Comment: Speci men Type: BLOOD SPECIMENOrdering Facility: [facility] Address: [address] [place] [address] Performed By: #### 2 4331-1 ####[facility] LABCLIA [id number] [address] [id number] [place] [address] [place]#### 3051-0, 3024-7, 3016-3 ####[facility] LABCLIA [id number] [place] [address] [place] TSH SerPl-aCncon 11-17-2024 TSH Qn 1.280 m[IU]/L Normal 0.270-4.200 [facility] Comment on above: Order Comment: Speci men Type: BLOOD SPECIMENOrdering Facility: [facility] Address: [address] [place] [address] Performed By: #### 2 4331-1 ####[facility] LABCLIA [id number] [address] STATES OF [facility] [id number] [place] [address] [place]#### 3051-0, 3024-7, 3016-3 ####[facility] LABCLIA [id number] [address] [place] Vit B12 [facility] [facility] 12-30-2 024 Cobalamin (Vitamin B12) [Mass/Vol] 404 pg/mL Normal [id number] [facility] Comment on above: Order Comment: Speci men Type: BLOOD SPECIMENOrdering Facility: [facility] Address: [address] [place] [address] Performed By: #### 2 132-9 ####[facility] LABCLIA [id number] [address] CNOVon 11-05-2024 CNOV Office Visit (INTMWS ) MICHAELA BRANDT ([id number]) 1940 F Date Time Provider Department 11/05/24 2:40 PM MARIPOSA MÁRQUEZ INTMWS During your visit today, we recorded the following information about you: Pulse Respiration Blood pressure Weight 76/minute 16/minute 118/72 60.8 kg Mariposa Márquez APRN.CNP 11/05/2024 3:38 PM Signed CC: Patient presents with: Establish Care: Establish Care HPI Michaela Brandt is a 84 year old female who presents today for establish care. Just moved to [place] where her daughter lives after needing to sell her 3 story home to allow her to continue to live independently. [place] Is now in her own 1 level apartment. Needs assistance with medication dispensing and is needing support to drive her to appointments and to the store. Is hoping to go to [employer] a few times a week as well. [...] UTIs and followed with a urologist [place]. Denies abdominal pain, fever, chills, or dark/foul [...] Influenza Vaccine(1) Never done Covid-19 Vaccine(3 - season) due on 07/20/2024 DATA REVIEWED: Outside chart from Dr Richey reviewed. For what was available. ASSESSMENT/PLAN: 1. Encounter to establish care - ICD9: V65.8, ICD10: Z76.89 (primary diagnosis) Need to request (more content not included)... [facility]19-2022 Culture, Urine Culture, Urine-: [...] F Trimethoprim/Sulfameth oxazole S <=20 F Normal [facility] Vital Signs Date Time Vital Sign Value Performing Clinician Facility 06-20-2025 14:19-0400 Body temperature 99.1 [degF] Dr. Dillan Santiago MD Work Phone: [facility] 06-20-2025 14:19-0400 Diastolic blood pressure 53 mm[Hg] Dr. Dillan Santiago MD Work Phone: [facility] 06-20-2025 14:19-0400 Heart rate 80 /min Dr. Dillan Santiago MD Work Phone: [facility] 06-20-2025 14:19-0400 Respiratory rate 22 /min Dr. Dillan Santiago MD Work Phone: [facility] 06-20-2025 14:19-0400 SaO2% (BldA) [Mass fraction] 99 % Dr. Dillan Santiago MD Work Phone: [facility] 06-20-2025 14:19-0400 Systolic blood pressure 136 mm[Hg] Dr. Dillan Santiago MD Work Phone: [facility] 06-20-2025 08:29-0400 Body height 152.[address] Dillan Santiago MD Work Phone: [facility] 06-20-2025 08:29-0400 Body mass index (BMI) [Ratio] 23.4 kg/m2 Dr. Dillan Santiago MD Work Phone: [facility] 06-20-2025 08:29-0400 Body weight 54.[address] Dillan Santiago MD Work Phone: 5(257)091-731876 [place] [address] 06-03-2025 11:18-0400 Body weight 54.16 kg Dillan Santiago MD Work Phone: [facility] 06-03-2025 11:18-0400 Diastolic blood pressure 71 mm[Hg] Dillan Santiago MD Work Phone: [facility] 06-03-2025 11:18-0400 Heart rate 64 /min Dillan Santiago MD Work Phone: [facility] 06-03-2025 11:18-0400 Respiratory rate 16 /min Dillan Santiago MD Work Phone: [facility] 06-03-2025 11:18-0400 SaO2% (BldA) [Mass fraction] 95 % Dillan Santiago MD Work Phone: [facility] 06-03-2025 11:18-0400 Systolic blood pressure 134 mm[Hg] Dillan Santiago MD Work Phone: [facility] 05-17-2025 11:49-0400 Body temperature 98.6 [degF] Dr. Vadim Florence DO Work Phone: [facility] 05-17-2025 11:49-0400 Diastolic blood pressure 66 mm[Hg] Dr. Vadim Florence DO Work Phone: [facility] 05-17-2025 11:49-0400 Heart rate 65 /min Dr. Vadim Florence DO Work Phone: [facility] 05-17-2025 11:49-0400 Respiratory rate 16 /min Dr. Vadim Florence DO Work Phone: [facility] 05-17-2025 11:49-0400 SaO2% (BldA) [Mass fraction] 99 % Dr. Vadim Florence DO Work Phone: [facility] 05-17-2025 11:49-0400 Systolic blood pressure 148 mm[Hg] Dr. Vadim Florence DO Work Phone: [facility] 05-17-2025 09:32-0400 Body height 152.[address] Vadim Florence DO Work Phone: [facility] 05-06-2025 11:28-0400 Diastolic blood pressure 64 mm[Hg] Dillan Santiago MD Work Phone: [facility] 05-06-2025 11:28-0400 Systolic blood pressure 144 mm[Hg] Dillan Santiago MD Work Phone: [facility] 05-06-2025 11:27-0400 Body weight 55.79 kg Dillan Santiago MD Work Phone: [facility] 05-06-2025 11:27-0400 Heart rate 62 /min Dillan Santiago MD Work Phone: [facility] 05-06-2025 11:27-0400 Respiratory rate 12 /min Dillan Santiago MD Work Phone: [facility] 05-06-2025 11:27-0400 SaO2% (BldA) [Mass fraction] 98 % Dillan Santiago MD Work Phone: [facility] 04-17-2025 11:23-0400 Diastolic blood pressure 71 mm[Hg] Dillan Santiago MD Work Phone: [facility] 04-17-2025 11:23-0400 Heart rate 67 /min Dillan Santiago MD Work Phone: [facility] 04-17-2025 11:23-0400 Respiratory rate 16 /min Dillan Santiago MD Work Phone: [facility] 04-17-2025 11:23-0400 SaO2% (BldA) [Mass fraction] 98 % Dillan Santiago MD Work Phone: [facility] 04-17-2025 11:23-0400 Systolic blood pressure 124 mm[Hg] Dillan Santiago MD Work Phone: [facility] 03-19-2025 07:51-0400 Body temperature 98.3 [degF] Dr. Vadim Florence DO Work Phone: [facility] 03-19-2025 07:51-0400 Diastolic blood pressure 64 mm[Hg] Dr. Vadim Florence DO Work Phone: [facility] 03-19-2025 07:51-0400 Heart rate 68 /min Dr. Vadim Florence DO Work Phone: 5(884)053-100762 [place] [address] 03-19-2025 07:51-0400 Respiratory rate 16 /min Dr. Vadim Florence DO Work Phone: 7(052)449-597062 [place] [address] 03-19-2025 07:51-0400 SaO2% (BldA) [Mass fraction] 98 % Dr. Vadim Florence DO Work Phone: [facility] 03-19-2025 07:51-0400 Systolic blood pressure 150 mm[Hg] Dr. Vadim Florence DO Work Phone: [facility] 03-17-2025 14:08-0400 Body mass index (BMI) [Ratio] 25.4 kg/m2 Dr. Vadim Florence DO Work Phone: [facility] 03-17-2025 14:08-0400 Body weight 58.[address] Vadim Florence DO Work Phone: [facility] 03-11-2025 10:53-0400 Body temperature 97.7 [degF] Dr. Vadim Florence DO Work Phone: 8(692)189-087362 [place] [address] 03-11-2025 10:53-0400 Diastolic blood pressure 48 mm[Hg] Dr. Vadim Florence DO Work Phone: 8(470)794-710562 [place] [address] 03-11-2025 10:53-0400 Heart rate 67 /min Dr. Vadim Florence DO Work Phone: 1(725)846-379562 [place] [address] 03-11-2025 10:53-0400 Respiratory rate 18 /min Dr. Vadim Florence DO Work Phone: 4(879)104-192262 [place] [address] 03-11-2025 10:53-0400 SaO2% (BldA) [Mass fraction] 100 % Dr. Vadim Florence DO Work Phone: 8(739)329-395162 [place] [address] 03-11-2025 10:53-0400 Systolic blood pressure 118 mm[Hg] Dr. Vadim Florence DO Work Phone: 3(670)526-348262 [place] [address] 03-11-2025 10:52-0400 Body height 152.[address] Vadim Florence DO Work Phone: 0(973)275-032162 [place] [address] 03-11-2025 10:52-0400 Body weight 58.[address] Vadim Florence DO Work Phone: 8(119)604-774062 [place] [address] 03-10-2025 14:50-0400 Body mass index (BMI) [Ratio] 25.4 kg/m2 Dr. Vadim Florence DO Work Phone: 9(993)914-782162 [place] [address] 03-04-2025 13:43-0400 Body temperature 98.1 [degF] Dr. Vadim Florence DO Work Phone: 9(531)606-493062 [place] [address] 03-04-2025 13:43-0400 Diastolic blood pressure 52 mm[Hg] Dr. Vadim Florence DO Work Phone: 9(066)123-444762 [place] [address] 03-04-2025 13:43-0400 Heart rate 83 /min Dr. Vadim Florence DO Work Phone: 3(974)654-129362 [place] [address] 03-04-2025 13:43-0400 Respiratory rate 16 /min Dr. Vadim Florence DO Work Phone: 6(808)796-062262 [place] [address] 03-04-2025 13:43-0400 SaO2% (BldA) [Mass fraction] 98 % Dr. Vadim Florence DO Work Phone: [facility] 03-04-2025 13:43-0400 Systolic blood pressure 142 mm[Hg] Dr. Vadim Florence DO Work Phone: 6(108)731-794162 [place] [address] 03-04-2025 11:43-0400 Inhaled oxygen flow rate 97 L/min Dr. Vadim Florence DO Work Phone: 7(274)099-032962 [place] [address] 03-04-2025 05:53-0400 Body mass index (BMI) [Ratio] 25.2 kg/m2 Dr. Vadim Florence DO Work Phone: 1(695)808-484562 [place] [address] 03-04-2025 05:53-0400 Body weight 58.[address] Vadim Florence DO Work Phone: 9(028)562-251162 [place] [address] 03-01-2025 15:09-0400 Body height 152.[address] Vadim Florence DO Work Phone: 4(665)340-677662 [place] [address] 03-01-2025 13:19-0400 Diastolic blood pressure 59 mm[Hg] Dr. Vadim Florence DO Work Phone: 0(140)017-592862 [place] [address] 03-01-2025 13:19-0400 Heart rate 60 /min Dr. Vadim Florence DO Work Phone: 6(558)733-845662 [place] [address] 03-01-2025 13:19-0400 Respiratory rate 21 /min Dr. Vadim Florence DO Work Phone: 6(607)970-645062 [place] [address] 03-01-2025 13:19-0400 SaO2% (BldA) [Mass fraction] 98 % Dr. Vadim Florence DO Work Phone: 3(005)020-381162 [place] [address] 03-01-2025 13:19-0400 Systolic blood pressure 145 mm[Hg] Dr. Vadim Florence DO Work Phone: 9(406)340-357762 [place] [address] 03-01-2025 12:26-0400 Body temperature 97.6 [degF] Dr. Vadim Florence DO Work Phone: [facility] 03-01-2025 11:25-0400 Body height 152.[address] Vadim Floernce DO Work Phone: [facility] 03-01-2025 11:25-0400 Body mass index (BMI) [Ratio] 25.7 kg/m2 Dr. Vadim Florence DO Work Phone: [facility] 03-01-2025 11:25-0400 Body weight 59.[address] Vadim Florence DO Work Phone: [facility] 02-19-2025 11:23-0400 Body temperature 98.71 [degF] Walt Robles APRN.[employer] Work Phone: [facility] 02-19-2025 11:23-0400 Body weight 57 kg Walt Robles APRN.[employer] Work Phone: [facility] 02-19-2025 11:23-0400 Diastolic blood pressure 79 mm[Hg] Walt Robles APRN.[employer] Work Phone: [facility] 02-19-2025 11:23-0400 Heart rate 70 /min Walt Robles APRN.[employer] Work Phone: [facility] 02-19-2025 11:23-0400 Respiratory rate 22 /min Walt Robles APRN.[employer] Work Phone: [facility] 02-19-2025 11:23-0400 SaO2% (BldA) [Mass fraction] 98 % Walt Robles APRN.[employer] Work Phone: [facility] 02-19-2025 11:23-0400 Systolic blood pressure 145 mm[Hg] Walt Robles APRN.[employer] Work Phone: [facility] 02-18-2025 10:20-0400 Body weight 57.61 kg Mariposa Márquez APRN.[employer] Work Phone: [facility] 02-18-2025 10:20-0400 Diastolic blood pressure 80 mm[Hg] Mariposa Márquez APRN.[employer] Work Phone: [facility] 02-18-2025 10:20-0400 Heart rate 74 /min Mariposa Older [employer] CH[employer] LEADER.[employer] Work Phone: [facility] 02-18-2025 10:20-0400 Respiratory rate 16 /min Mariposa Older [employer] CHANGE LEADER.[employer] Work Phone: [facility] 02-18-2025 10:20-0400 SaO2% (BldA) [Mass fraction] 97 % Mariposa Older [employer] CHANGE LEADER.[employer] Work Phone: [facility] 02-18-2025 10:20-0400 Systolic blood pressure 122 mm[Hg] Mariposa Older [employer] SERV[employer] CHANGE LEADER.[employer] Work Phone: [facility] 02-04-2025 11:21-0400 Body weight 57.42 kg Dillan Santiago MD Work Phone: [facility] 02-04-2025 11:21-0400 Diastolic blood pressure 80 mm[Hg] Dillan Santiago MD Work Phone: [facility] 02-04-2025 11:21-0400 Heart rate 67 /min Dillan Santiago MD Work Phone: [facility] 02-04-2025 11:21-0400 SaO2% (BldA) [Mass fraction] 98 % Dillan Santiago MD Work Phone: [facility] 02-04-2025 11:21-0400 Systolic blood pressure 131 mm[Hg] Dillan Santiago MD Work Phone: [facility] 01-17-2025 19:54-0500 Body temperature 98.1 [degF] Dr. Vadim Florence DO Work Phone: [facility] 01-17-2025 19:54-0500 Diastolic blood pressure 69 mm[Hg] Dr. Vadim Florence DO Work Phone: [facility] 01-17-2025 19:54-0500 Heart rate 77 /min Dr. Vadim Florence DO Work Phone: [facility] 01-17-2025 19:54-0500 Respiratory rate 19 /min Dr. Vadim Florence DO Work Phone: [facility] 01-17-2025 19:54-0500 SaO2% (BldA) [Mass fraction] 98 % Dr. Vadim Florence DO Work Phone: [facility] 01-17-2025 19:54-0500 Systolic blood pressure 146 mm[Hg] Dr. Vadim Florence DO Work Phone: [facility] 12-23-2024 10:07-0500 Body temperature 97.39 [degF] Tom Baltazar PA-C Work Phone: [facility] 12-23-2024 10:07-0500 Body weight 59.88 kg Tom Baltazar PA-C Work Phone: [facility] 12-23-2024 10:07-0500 Diastolic blood pressure 64 mm[Hg] Tom Baltazar PA-C Work Phone: [facility] Comment on above: Tom notified of blood pressure. No c omplaints from patient. 12-23-2024 10:07-0500 Heart rate 80 /min Tom Baltazar PA-C Work Phone: [facility] 12-23-2024 10:07-0500 Respiratory rate 12 /min Tom Baltazar PA-C Work Phone: [facility] 12-23-2024 10:07-0500 SaO2% (BldA) [Mass fraction] 97 % Tom Baltazar PA-C Work Phone: [facility] 12-23-2024 10:07-0500 Systolic blood pressure 144 mm[Hg] Tom Baltazar PA-C Work Phone: [facility] Comment on above: Tom notified of blood pressure. No c omplaints from patient. 11-05-2024 14:35-0500 Body weight 60.78 kg Mariposa Márquez APRN.[employer] Work Phone: [facility] 11-05-2024 14:35-0500 Diastolic blood pressure 72 mm[Hg] Mariposa Older [employer] CH[employer] LEADER.[employer] Work Phone: [facility] 11-05-2024 14:35-0500 Heart rate 76 /min Mariposa Older [employer] CH[employer] LEADER.[employer] Work Phone: [facility] 11-05-2024 14:35-0500 Respiratory rate 16 /min Mariposa Older [employer] CHANGE LEADER.[employer] Work Phone: [facility] 11-05-2024 14:35-0500 SaO2% (BldA) [Mass fraction] 97 % Mariposa Older [employer] CH[employer] LEADER.[employer] Work Phone: [facility] 11-05-2024 14:35-0500 Systolic blood pressure 118 mm[Hg] Mariposa Older [employer] CHANGE LEADER.[employer] Work Phone: [facility] 01-17-2024 13:24-0500 Body height 152.4 cm [facility] 01-17-2024 13:24-0500 Body mass index (BMI) [Ratio] 26.9 kg/m2 [facility] 01-17-2024 13:24-0500 Body weight 62.59 kg [facility] 01-17-2024 13:24-0500 Diastolic blood pressure 82 mm[Hg] [facility] 01-17-2024 13:24-0500 Heart rate 73 /min [facility] 01-17-2024 13:24-0500 Respiratory rate 16 /min [facility] 01-17-2024 13:24-0500 SaO2% (BldA) [Mass fraction] 99 % [facility] 01-17-2024 13:24-0500 Systolic blood pressure 126 mm[Hg] [facility] Encounters Encounter Date Encounter Type Care Provider Facility Start: 06-23-2025 ambulatory Vadim Estrada Facility:[facility] Start: 06-20-2025 ambulatory Dillan Santiago Facility:[facility] Start: 06-20-2025 End: 06-25-2025 Evaluation and management of inpatient Dr. Cindy Molina MD -Medical Surgical 3 Work Phone: Start: 06-17-2025 End: 06-18-2025 Telephone encounter Dillan Santiago MD Work Phone: [facility] [place] Comment on above: Home Health Point of [...] Start: 06-03-2025 End: 06-03-2025 ambulatory DILLAN SANTIAGO Facility:[facility] Start: 05-20-2025 End: 05-26-2025 Telephone encounter Dillan Santiago MD Work Phone: [facility] [place] Comment on above: Forms Start: 05-18-2025 End: 05-19-2025 ambulatory Dillan Santiago MD Work Phone: Geriatrics Start: 05-18-2025 End: 05-19-2025 Patient encounter procedure Dillan Santiago MD Work Phone: Geriatrics Comment on above: Appointment for card iology Start: 05-17-2025 End: 05-17-2025 Emergency department patient visit Dr. Vadim Florence DO Work Phone: -Emergency Department Work Phone: Start: 05-07-2025 End: 05-08-2025 Follow-up encounter Dillan Santigao MD Work Phone: [facility] [place] Start: 05-07-2025 End: 05-12-2025 Telephone encounter Dillan Santiago MD Work Phone: [facility] [place] Comment on above: [facility] request ing order Start: 05-06-2025 End: 05-07-2025 Telephone encounter Dillan Santiago MD Work Phone: [facility] [place] Comment on above: Anxiety Start: 05-06-2025 End: 05-06-2025 ambulatory DILLAN SANTIAGO Facility:[facility] Start: 05-06-2025 End: 05-06-2025 Office outpatient visit 25 minutes Dillan Satniago MD Work Phone: Geriatrics Comment on above: Acute heart failure, unspecified heart failure type (HCC) (Primary Dx); Prediabetes; Urinary retention; Acute deep vein thrombosis (DVT) of calf muscle vein of left lower extremity (HCC); Edema, unspecified type; Self-catheterizes urinary bladder; Weakness of both lower extremities; S/P hip hemiarthroplasty Start: 05-06-2025 End: 05-06-2025 ambulatory DILLAN SANTIAGO Facility:[facility] Start: 05-04-2025 End: 05-04-2025 Telephone encounter Dillan Santiago MD Work Phone: [facility] [place] Comment on above: Edema Start: 05-01-2025 End: 05-02-2025 Refill Mariposa Márquez APRN.CNP Work Phone: [facility] [place] Comment on above: Refill Request Start: 04-27-2025 End: 05-05-2025 Telephone encounter Tom Batlazar PA-C Work Phone: Urology Comment on above: Orders (Self cathete r) Start: 04-24-2025 End: 04-24-2025 ambulatory Dillan Santiago MD Work Phone: [facility] [place] Start: 04-24-2025 End: 04-24-2025 Patient encounter procedure Dillan Santiago MD Work Phone: [facility] [place] Comment on above: Optics Technical Officer referral Start: 04-24-2025 End: 04-28-2025 Telephone encounter Dillan Santiago MD Work Phone: [facility] [place] Comment on above: Patient Update Start: 04-21-2025 End: 04-22-2025 Telephone encounter Dillan Santiago MD Work Phone: [facility] [place] Comment on above: Swelling Start: 04-20-2025 End: 04-20-2025 ambulatory Dillan Santiago MD Work Phone: [facility] [place] Comment on above: Concern in regards t o care Start: 04-20-2025 End: 04-20-2025 Telephone encounter Dillan Santiago MD Work Phone: [facility] [place] Comment on above: Patient Update; Terri kim Start: 04-17-2025 End: 04-20-2025 Telephone encounter Dillan Santiago MD Work Phone: [facility] [place] Comment on above: Follow HH Request information from [facility] Start: 04-17-2025 End: 04-17-[address] Dillan Santiago MD Work Phone: [facility] Start: 04-17-2025 End: 04-17-2025 Patient encounter procedure Daya Morgan [facility] Work Phone: Start: 04-17-2025 End: [...] 3 (HCC) Start: 04-17-2025 End: 04-17-2025 ambulatory DILLAN SANTIAGO Facility:[facility] Start: 04-06-2025 ambulatory Adele MEEHAN Fa cility:[facility] Start: 04-06-2025 Registered Referred Adele Gusman MD -[facility] Start: 03-30-2025 End: 03-30-2025 Patient encounter procedure Daya Morgan [facility] Work Phone: Start: 03-30-2025 End: 03-30-[address] Vadim Florence DO Work Phone: [facility] Work Phone: Start: 03-30-2025 End: 03-30-2025 Departed Referred Daya PEREZ -[facility] Start: 03-30-2025 End: 03-30-2025 ambulatory [facility] Facility:[facility] Start: 03-24-2025 End: 03-24-[address] Dillan Santiago MD Work Phone: [facility] Start: 03-24-2025 End: 03-24-[address] Adele Gusman MD -[facility] Work Phone: Start: 03-23-2025 End: 03-23-2025 Departed Referred Adele Gusman MD -[facility] Start: 03-23-2025 End: 03-23-2025 ambulatory Adele MEEHAN Facility:[facility] Start: 03-19-2025 End: 03-19-2025 Telephone encounter [facility] Start: 03-09-2025 Non-patient / Non-visit Dr. Vadim munoz MD -[facility] Start: 03-09-2025 End: 03-09-[address] Vadim Florence DO Work Phone: [facility] Work Phone: Start: 03-09-2025 End: 03-09-[address] Garfield Yo MD -[facility] Work Phone: Start: 03-09-2025 End: 03-09-2025 ambulatory [facility] Facility:[facility] Start: 03-04-2025 End: 03-19-2025 Evaluation and management of inpatient Dr. Garfield Yo MD -Transitional Care Unit Start: 03-04-2025 Non-patient / Non-visit Dr. Jessica Tran MD -[place] [facility] Work Phone: Start: 03-03-2025 Non-patient / Non-visit Dr. Jessica Tran MD -[facility] Work Phone: Start: 03-03-2025 End: 03-04-2025 Admission to same day surgery center Dillan Santiago MD Work Phone: Geriatrics Comment on above: Michaela Hip surgery Start: 03-03-2025 End: 03-04-2025 ambulatory Dillan Santiago MD Work Phone: Geriatrics Start: 03-02-2025 Non-patient / Non-visit Dr. Jessica Tran MD -[facility] Work Phone: Start: 03-01-2025 ambulatory Allison Tran [facility] Start: 03-01-2025 End: 03-04-2025 Evaluation and management of inpatient Dr. Roro Long DO -Medical Surgical 3 Work Phone: Start: 02-27-2025 End: 03-02-2025 Telephone encounter [facility] Start: 02-24-2025 End: 02-25-2025 Refill Dillan Santiago MD Work Phone: Geriatrics Comment on above: Refill Request Start: 02-22-2025 End: 02-22-2025 Follow-up encounter Walt Robles APRN.CNP Work Phone: [facility] Start: 02-19-2025 End: 02-19-2025 Telephone encounter Walt Robles APRN.[employer] Work Phone: [facility] Comment on above: Clinical Update Start: 02-19-2025 End: 02-19-2025 ambulatory DILLAN SANTIAGO Facility:[facility] Start: 02-19-2025 End: 02-19-2025 Patient encounter procedure Walt Robles APRN.[employer] Work Phone: [facility] Comment on above: Recurrent UTI (urina ry tract infection) (Primary Dx) Start: 02-18-2025 End: 04-20-2025 Follow-up encounter Dillan Santiago MD Work Phone: Internal Medicine [facility] Start: 02-18-2025 End: 02-27-2025 ambulatory Dillan Santiago MD Work Phone: Geriatrics Comment on above: Concern for future c are Start: 02-18-2025 End: 02-18-2025 Patient encounter procedure Mariposa Márquez STEVE Work Phone: Internal Medicine [place] Comment on above: Impacted cerumen of right ear (Primary Dx) Start: 02-17-2025 End: 02-17-2025 ambulatory DILLAN SANTIAGO Facility:[facility] Start: 02-04-2025 End: 02-04-2025 ambulatory SELF Facility:[facility] Start: 02-04-2025 End: 02-04-2025 Office consultation new/estab [...] [facility] Comment on above: Refill Request Start: 01-24-2025 ambulatory DILLAN SANTIAGO Facility:1 [phone] Start: 01-24-2025 End: 01-24-2025 Subsequent hospital visit by physician [facility] Work Phone: [facility] [...] Start: 12-31-2024 End: 01-01-2025 Refill Mariposa Older [employer] Work Phone: Internal Medicine [place] Comment on above: Refill Request Start: 12-23-2024 End: 12-25-2024 Telephone encounter Tom Baltazar PA-C Work Phone: Urology Comment on above: Request Outside [facility] Records Start: 12-23-2024 End: 12-23-2024 ambulatory MARIPOSA MÁRQUEZ Facility:[facility] Start: 12-23-2024 End: 12-23-2024 Patient encounter procedure Tom Baltazar PA-C Work Phone: Urology Comment on above: Retention of urine, unspecified (Primary Dx); Self-catheterizes urinary bladder; Urinary problem Start: 12-15-2024 End: 12-15-2024 Refill Mariposa Old[employer] Work Phone: Internal Medicine [place] Comment on above: Refill Request Start: 12-12-2024 End: 12-15-2024 Refill Mariposa Older [employer]AD[employer] Work Phone: Internal Medicine [place] Comment on above: Refill Request Start: 12-10-2024 [...] Ambulates with cane Start: 12-10-2024 End: 12-10-2024 [facility] Facility:[facility] Start: 11-17-2024 End: 11-17-2024 [facility] Facility:[facility] Start: 11-11-2024 End: 11-21-2024 Refill Mariposa [employer] Work Phone: Internal Medicine [place] Comment on above: Refill Request clonazePAM refill Start: 11-05-2024 End: 11-05-2024 Patient encounter procedure Mariposa Márquez [employer]AD[employer] Work Phone: Internal Medicine [place] Comment on above: [facility]counter to [facility] (Primary Dx); Anxiety and depression; Hypothyroidism, unspecified type; Balance disorder; Ambulates with cane; Concern about memory; Self-catheterizes urinary bladder; Unable to void; Assistance needed for bathing; Lipid screening; Urinary problem Start: 11-05-2024 End: 11-05-2024 [facility] Facility:[facility] Start: 11-05-2024 End: 11-06-2024 Refill Mariposa Older [employer] CH[employer] LEAD[employer] Work Phone: Internal Medicine [place] Comment on above: Med Change Request Start: 01-17-2024 ambulatory Ludin Boland ty:[facility] Start: 01-17-2024 End: 01-17-2024 ambulatory [facility] Work Phone: Start: 01-17-2024 End: 01-17-2024 Patient encounter procedure [facility] [address] Work Phone: Procedures Date Procedure Procedure Detail Performing Clinician Start: 06-20-2025 Urnls dip stick/tabl et reagent auto microscopy Dr. Dillan Santiago MD Work Phone: Start: 06-20-2025 Plain x-ray of elbow Dr Gilbert Santiago MD Work Phone: Start: 06-20-2025 Plain x-ray of pelvi s and lower extremity Dr. Dillan Santiago MD Work Phone: Start: 06-20-2025 X-ray of knee, one o r two views Dr. Dillan Santiago MD Work Phone: Start: 06-20-2025 CT cervical spine wi thout contrast Dr. Dillan Santiago MD Work Phone: Start: 06-20-2025 CT of thorax, abdome n and pelvis with contrast Dr. Dillan Santiago MD Work Phone: Start: 06-20-[address] Dillan Santiago MD Work Phone: Start: 06-20-2025 CT of head without contrast Dr. Dillan Santiago MD Work Phone: Start: 05-17-[address] Abbie Santiago [...] et rgnt auto w/o microscopy Dasha Plata APRN.[employer] Work Phone: Start: 01-24-2025 MRI 3D BRAIN [...] Author Start: 05-06-2028 Diabetes Screening Diabetes Screenin [facility] Start: 11-17-2027 Diabetes Screening Diabetes Screenin [facility] Start: 06-03-2026 RSV Vaccine (1 - 1-d ose 75+ series) RSV Vaccine (1 - 1-dose 75+ series) [facility] Comment on above: Postponed from 08/17 (Declined at this time) Start: 07-20-2025 Influenza vaccination [facility] Start: 07-17-2025 End: 07-17-2025 Patient encounter procedure 07/17/2025 11:20 AM EDT Office Visit [facility] [place] [address] [place], [place] [id number] Dillan Santiago MD [address] [place] [address] 3 Month F/U [facility] [place] Comment on above: 3 Month F/U Start: 07-14-2025 End: 07-14-2025 Patient encounter procedure 07/14/2025 10:00 AM EDT Office Visit Podiatry [address] [place], [place] [id number] Da Klein [address] [place], [place] [address] bilateral toenails/very thick Podiatry Comment on above: bilateral toenails/v jaxson thick Start: 06-20-2025 Verification routine [facility] Start: 06-20-2025 Admission procedure [facility] Start: 06-20-2025 Bacteria identified in Urine by Culture Urine Culture [facility] Start: 06-20-2025 Hospital admission, emergency, from emergency room, medical nature [facility] Start: 06-20-2025 [facility] Start: 06-03-2025 End: 06-03-2025 Patient encounter procedure 06/03/2025 11:00 AM EDT Office Visit Geriatrics [address] [place] [address] Dillan Santiago MD [address] [place] [address] 4 wk follow up Geriatrics Comment on above: 4 wk follow up Start: 05-25-2025 End: 05-25-2025 Patient encounter procedure 05/25/2025 8:00 AM EDT Office Visit Cardiology [address] [place] [address] Acute heart failure, unspecified heart failure type (HCC) [I50.9] Cardiology Comment on above: Acute heart failure, unspecified heart failure type (HCC) [I50.9] Start: 05-17-2025 Bacteria identified in Urine by Culture Urine Culture [facility] Start: 05-17-2025 End: 05-17-2025 [facility] Start: 05-17-2025 [facility] Start: 05-06-2025 End: 08-05-2025 Comprehensive metabolic 2000 panel - Serum or Plasma [facility] Comment on above: Expected: 05/06/2025 , Expires: 08/05/2025 Start: 05-06-2025 End: 08-05-2025 Hemoglobin A1c in Blood [facility] Comment on above: Expected: 05/06/2025 , Expires: 08/05/2025 Start: 05-06-2025 End: 08-05-2025 Natriuretic peptide.B prohormone N-Terminal [Mass/volume] in Serum or Plasma [facility] Comment on above: Expected: 05/06/2025 , Expires: 08/05/2025 Start: 05-06-2025 End: 05-06-2025 Patient encounter procedure 05/06/2025 11:30 AM EDT Office Visit Geriatrics [address] [place] [address] Dillan Santiago MD [address] [place] [address] 3 mo follow up Geriatrics Comment on above: 3 mo follow up Start: 03-19-2025 Removal of urinary catheter [facility] Start: 03-19-2025 Patient discharge [facility] Start: 03-18-2025 Development of care plan [facility] Start: 03-16-2025 [facility] Start: 03-14-2025 [facility] Start: 03-11-2025 [facility] Start: 03-11-2025 Incentive spirometry [facility] Start: 03-10-2025 Recommendation to co ntinue with treatment [facility] Start: 03-06-2025 [facility] Start: 03-05-2025 Speech therapy management [facility] Start: 03-05-2025 Development of care plan [facility] Start: 03-05-2025 Developing a treatme nt plan [facility] Start: 03-05-2025 Speech therapy assessment [facility] Start: 03-04-2025 End: 03-04-2025 Contact precautions [facility] Start: 03-04-2025 Admission procedure [facility] Start: 03-04-2025 Introduction of urin clay catheter [facility] Start: 03-04-2025 Measuring intake and output [facility] Start: 03-04-2025 Patient referral to dietitian [facility] Start: 03-04-2025 Referral to occupati onal therapist [facility] Start: 03-04-2025 Referral to service [facility] Start: 03-04-2025 Verification routine [facility] Start: 03-04-2025 Vital signs measurements [facility] Start: 03-04-2025 End: 03-04-2025 [facility] Start: 03-04-2025 Following clinical p athway protocol [facility] Start: 03-04-2025 Patient discharge [facility] Start: 03-04-2025 Application of device [facility] Start: 03-03-2025 [facility] Start: 03-03-2025 [facility] Start: 03-03-2025 [facility] Start: 03-03-2025 [facility] Start: 03-03-2025 [facility] Start: 03-03-2025 [facility] Start: 03-03-2025 [facility] Start: 03-02-2025 [facility] Start: 03-02-2025 [facility] Start: 03-02-2025 [facility] Start: 03-02-2025 [facility] Start: 03-02-2025 [facility] Start: 03-02-2025 Provision of overbed trapeze [facility] Start: 03-02-2025 Recommendation to co ntinue with treatment [facility] Start: 03-02-2025 End: 03-02-2025 [facility] Start: 03-02-2025 Application of device [facility] Start: 03-02-2025 Assessment of risk o f venous thromboembolism [facility] Start: 03-02-2025 Catheterization of vein [facility] Start: 03-02-2025 Exercises [facility] Start: 03-02-2025 Following clinical p athway protocol [facility] Start: 03-02-2025 Introduction of urin clay catheter [facility] Start: 03-02-2025 Measuring intake and output [facility] Start: 03-02-2025 Neurovascular assessment [facility] Start: 03-02-2025 Patient education [facility] Start: 03-02-2025 Procedure discontinued [facility] Start: 03-02-2025 Provision of activit y privileges [facility] Start: 03-02-2025 Referral to occupati onal therapist [facility] Start: 03-02-2025 Referral to service [facility] Start: 03-02-2025 Vital signs measurements [facility] Start: 03-02-2025 Wound care [facility] Start: 03-01-2025 Application of ice c ollar, cap or bag [facility] Start: 03-01-2025 Assessment of risk o f venous thromboembolism [facility] Start: 03-01-2025 Skin care [facility] Start: 03-01-2025 [facility] Start: 03-01-2025 Assessment of risk o f venous thromboembolism [facility] Start: 03-01-2025 Catheterization of vein [facility] Start: 03-01-2025 Consultation [facility] Start: 03-01-2025 Consultation for treatment [facility] Start: 03-01-2025 Following clinical p athway protocol [facility] Start: 03-01-2025 Inhalation therapy procedure [facility] Start: 03-01-2025 Insertion of cathete r into peripheral vein [facility] Start: 03-01-2025 Measuring intake and output [facility] Start: 03-01-2025 Oxygen therapy [facility] Start: 03-01-2025 Providing care accor ding to standard [facility] Start: 03-01-2025 Referral to occupati onal therapist [facility] Start: 03-01-2025 Referral to service [facility] Start: 03-01-2025 [facility] Start: 03-01-2025 Hospital admission, emergency, from emergency room, medical nature [facility] Start: 03-01-2025 Verification routine [facility] Start: 03-01-2025 Admission procedure [facility] Start: 03-01-2025 End: 03-02-2025 [facility] Start: 03-01-2025 [facility] Start: 02-18-2025 End: 02-18-2025 Patient encounter procedure 02/18/2025 10:20 AM EDT Office Visit [facility] [place] [address] [place] [address] Mariposa Márquez APRN.[facility] [address] [place] [address] ear lavage [facility] [place] Comment on above: ear lavage Start: 02-04-2025 End: 05-06-2025 Thyrotropin [Units/volume] in Serum or Plasma THYROID STIMULATING HORMONE Lab Routine Expected: 02/04/2025, Expires: 05/06/2025 [facility] Work Phone: Comment on above: Expected: 02/04/2025 , Expires: 05/06/2025 Start: 02-04-2025 End: 02-04-2025 Patient encounter procedure 02/04/2025 11:20 AM EDT Office Visit [facility] [place] [address] [place], [place] [id number] Mariposa Márquez APRN.[employer] [address] [place], [place] [id number] 3 month follow up [facility] [place] Comment on above: 3 month follow up Start: 01-24-2025 End: 01-24-2025 Patient encounter procedure 01/24/2025 12:30 PM EST Appointment [facility] [address] [place] [address] MRI BRAIN W QUANT WO IVCON, Cognitive [...] EST Office Visit Urology [address] [place] [address] Tom Baltazar PA-C [address] [place] [address] 1 YR F/U Urology Comment on above: 1 YR F/U Start: 12-23-2024 End: 12-23-2024 Patient encounter procedure 12/23/2024 10:00 AM EST Office Visit Urology [address] [place] [address] Tom Baltazar PA-C [address] [place] [address] Self-catheterizes urinary bladder [Z78.9] Urology Comment on above: Self-catheterizes ur inary bladder [Z78.9] Start: 12-10-2024 End: 12-10-2024 Patient encounter procedure 12/10/2024 12:30 PM EST Office Visit Geriatrics [address] [place] [address] Dillan Santiago MD [address] [place] [address] Self-catheterizes urinary bladder [Z78.9] Geriatrics Comment on above: Self-catheterizes ur inary bladder [Z78.9] Start: 11-19-2024 Advance Directive Discussion Advance Directive Discussion [facility] Start: 11-19-2024 Medicare Advantage A nnual Wellness Visit Medicare Advantage Annual Wellness Visit [facility] Start: 11-05-2024 End: 02-04-2025 CBC panel - Blood by Automated count COMPLETE BLOOD COUNT Lab Routine Concern about memory Expected: 11/05/2024, Expires: 02/04/2025 [facility] Comment on above: Expected: 11/05/2024 , Expires: 02/04/2025 Start: 11-05-2024 End: 02-04-2025 Cobalamin (Vitamin B12) [Mass/volume] in Serum or Plasma VITAMIN B12 Lab Routine Concern about memory Expected: 11/05/2024, Expires: 02/04/2025 [facility] Comment on above: Expected: 11/05/2024 , Expires: 02/04/2025 Start: 11-05-2024 End: 02-04-2025 Comprehensive metabolic 2000 panel - Serum or Plasma COMPREHENSIVE METABOLIC PANEL Lab Routine Concern about memory Lipid screening Expected: 11/05/2024, Expires: 02/04/2025 [facility] Comment on above: Expected: 11/05/2024 , Expires: 02/04/2025 Start: 11-05-2024 End: 02-04-2025 Lipid 1996 panel - Serum or Plasma LIPID PANEL BASIC Lab Routine Lipid screening Expected: 11/05/2024, Expires: 02/04/2025 [facility] Work Phone: Comment on above: Expected: 11/05/2024 , Expires: 02/04/2025 Start: 11-05-2024 End: 02-04-2025 Thyrotropin [Units/volume] in Serum or Plasma THYROID STIMULATING HORMONE Lab Routine Concern about memory Hypothyroidism, unspecified type Expected: 11/05/2024, Expires: 02/04/2025 [facility] Comment on above: Expected: 11/05/2024 , Expires: 02/04/2025 Start: 11-05-2024 End: 02-04-2025 Thyroxine (T4) free [Mass/volume] in Serum or Plasma T4 FREE/FREE THYROXINE Lab Routine Concern about memory Hypothyroidism, unspecified type Expected: 11/05/2024, Expires: 02/04/2025 [facility] Comment on above: Expected: 11/05/2024 , Expires: 02/04/2025 Start: 11-05-2024 End: 02-04-2025 Triiodothyronine (T3) Free [Mass/volume] in Serum or Plasma T3, FREE Lab Routine Concern about memory Hypothyroidism, unspecified type Expected: 11/05/2024, Expires: 02/04/2025 [facility] Comment on above: Expected: 11/05/2024 , Expires: 02/04/2025 Start: 07-20-2024 Covid-19 Vaccine ( season) Covid-19 Vaccine ( season) [facility] Start: 07-20-2024 Influenza vaccination Influenza Vacc ine (#1) [facility] Start: 02-09-2024 Patient referral [facility] Work Phone: Start: 01-17-2024 Radiologic examinati on of knee XR knee LT 4V [facility] Start: 02-28-2020 Pneumococcal Vaccine : 50+ (2 of 2 - PCV) Pneumococcal Vaccine: 50+ (2 of 2 - PCV) [facility] Start: 2015 RSV Vaccine (1 - 1-d ose 75+ series) RSV Vaccine (1 - 1-dose 75+ series) [facility] Start: 01-14-2009 Shingrix Vaccine (2 of 3) Bran grix Vaccine (2 of 3) [facility] Start: 2005 Screening for osteoporosis Bone Dens ity Screening [facility] Start: 1985 Diabetes Screening Diabetes Screenin g [facility] Start: 1959 Urine microalbumin profile DTa P,Tdap,Td Vaccine (1 - Tdap) [facility] Start: 1958 Anxiety Screening Anxiety Screening [facility] Start: 1958 Depression Screening Depression Scre ening [facility] Anion gap in Serum o r Plasma [facility] Anion gap in Serum o r Plasma [facility] Anion gap in Serum o r Plasma [facility] Anion gap in Serum o r Plasma [facility] Anion gap in Serum o r Plasma [facility] Bacteria identified in Urine by Culture BACTERIAL CULTURE, URINE Microbiology Routine Urinary frequency Ordered: 02/19/2025 [facility] Work Phone: Comment on above: Ordered: 02/19/2025 BUN/Creatinine ratio [facility] BUN/Creatinine ratio [facility] BUN/Creatinine ratio [facility] BUN/Creatinine ratio [facility] BUN/Creatinine ratio [facility] Calcium [Mass/volume ] in Serum or Plasma [facility] Calcium [Mass/volume ] in Serum or Plasma [facility] Calcium [Mass/volume ] in Serum or Plasma [facility] Calcium [Mass/volume ] in Serum or Plasma [facility] Calcium [Mass/volume ] in Serum or Plasma [facility] Carbon dioxide, tota l [Moles/volume] in Central venous blood [facility] Carbon dioxide, tota l [Moles/volume] in Central venous blood [facility] Carbon dioxide, tota l [Moles/volume] in Central venous blood [facility] Carbon dioxide, tota l [Moles/volume] in Central venous blood [facility] Carbon dioxide, tota l [Moles/volume] in Central venous blood [facility] Creatinine [Mass/vol ume] in Serum or Plasma [facility] Creatinine [Mass/vol ume] in Serum or Plasma [facility] Creatinine [Mass/vol ume] in Serum or Plasma [facility] Creatinine [Mass/vol ume] in Serum or Plasma [facility] Creatinine [Mass/vol ume] in Serum or Plasma [facility] End: 05-06-2026 Echocardiography ECHO [facility] Acute heart failure, unspecified heart failure type (HCC) 1 Occurrences starting 05/06/2025 until 05/06/2026 [facility] Work Phone: Comment on above: 1 Occurrences starti ng 05/06/2025 until 05/06/2026 Erythrocyte mean corpuscular volume determination [facility] Erythrocyte mean corpuscular volume determination [facility] Erythrocyte mean corpuscular volume determination [facility] Erythrocyte mean corpuscular volume determination [facility] Erythrocyte mean corpuscular volume determination [facility] Glucose [Mass/volume ] in Serum or Plasma [facility] Glucose [Mass/volume ] in Serum or Plasma [facility] Glucose [Mass/volume ] in Serum or Plasma [facility] Glucose [Mass/volume ] in Serum or Plasma [facility] Glucose [Mass/volume ] in Serum or Plasma [facility] Hematocrit [Volume Fraction] of Blood [facility] Hematocrit [Volume Fraction] of Blood [facility] Hematocrit [Volume Fraction] of Blood [facility] Hematocrit [Volume Fraction] of Blood [facility] Hematocrit [Volume Fraction] of Blood [facility] Hemoglobin [Mass/vol ume] in Blood [facility] Hemoglobin [Mass/vol ume] in Blood [facility] Hemoglobin [Mass/vol ume] in Blood [facility] Hemoglobin [Mass/vol ume] in Blood [facility] Hemoglobin [Mass/vol ume] in Blood [facility] Leukocytes [#/volume ] in Blood [facility] Leukocytes [#/volume ] in Blood [facility] Leukocytes [#/volume ] in Blood [facility] Leukocytes [#/volume ] in Blood [facility] Leukocytes [#/volume ] in Blood [facility] Mean corpuscular hemoglobin concentration determination [facility] Mean corpuscular hemoglobin concentration determination [facility] Mean corpuscular hemoglobin concentration determination [facility] Mean corpuscular hemoglobin concentration determination [facility] Mean corpuscular hemoglobin concentration determination [facility] Mean corpuscular hemoglobin determination [facility] Mean corpuscular hemoglobin determination [facility] Mean corpuscular hemoglobin determination [facility] Mean corpuscular hemoglobin determination [facility] Mean corpuscular hemoglobin determination [facility] Measurement of renal function [facility] Measurement of renal function [facility] Measurement of renal function [facility] Measurement of renal function [facility] Measurement of renal function [facility] End: 01-09-2026 MR Brain WO contrast MRI BRAIN W QUANT WO IVCON Radiology Routine Cognitive impairment, mild, so stated 1 Occurrences starting 12/10/2024 until 01/09/2026 [facility] Work Phone: Comment on above: 1 Occurrences starti ng 12/10/2024 until 01/09/2026 End: 01-09-2026 MR Unspecified body region 3D post processing MRI 3D BRAIN QUANT Radiology Routine Cognitive impairment, mild, so stated 1 Occurrences starting 12/10/2024 until 01/09/2026 [facility] Comment on above: 1 Occurrences starti ng 12/10/2024 until 01/09/2026 Neutrophil count [facility] Neutrophil count [facility] Neutrophil count [facility] Neutrophil count [facility] Neutrophil count [facility] Neutrophil percent differential count [facility] Neutrophil percent differential count [facility] Neutrophil percent differential count [facility] Neutrophil percent differential count [facility] Neutrophil percent differential count [facility] Patient Education [facility] Work Phone: Patient referral [facility] Work Phone: Platelets [#/volume] in Blood [facility] Platelets [#/volume] in Blood [facility] Platelets [#/volume] in Blood [facility] Platelets [#/volume] in Blood [facility] Platelets [#/volume] in Blood [facility] Potassium measurement [facility] Potassium measurement [facility] Potassium measurement [facility] Potassium measurement [facility] Potassium measurement [facility] Red blood cell count [facility] Red blood cell count [facility] Red blood cell count [facility] Red blood cell count [facility] Red blood cell count [facility] Red cell distributio n width determination [facility] Red cell distributio n width determination [facility] Red cell distributio n width determination [facility] Red cell distributio n width determination [facility] Red cell distributio n width determination [facility] Removal impacted cer umen irrigation/lvg unilat AMBULATORY EAR LAVAGE/IRRIGATION Procedures Routine Impacted cerumen of right ear Ordered: 02/18/2025 [facility] Work Phone: Comment on above: Ordered: 02/18/2025 Serum chloride measurement [facility] Serum chloride measurement [facility] Serum chloride measurement [facility] Serum chloride measurement [facility] Serum chloride measurement [facility] Sodium measurement [facility] Sodium measurement [facility] Sodium measurement [facility] Sodium measurement [facility] Sodium measurement [facility] Urea nitrogen [Mass/volume] in Serum or Plasma [facility] Urea nitrogen [Mass/volume] in Serum or Plasma [facility] Urea nitrogen [Mass/volume] in Serum or Plasma [facility] Urea nitrogen [Mass/volume] in Serum or Plasma [facility] Urea nitrogen [Mass/volume] in Serum or Plasma [facility] Urine culture [facility] Urine culture [facility] Immunizations Immunization Date Immunization Notes Care Provider [facility] 10-31-2022 influenza (aIIV4) vaccine, age 65+ yr, quadrivalent, PF (FLUAD QUAD) Dillan Santiago MD Work Phone: [facility] 10-31-2022 influenza virus vacc ine, unspecified formulation Mariposa Márquez APRN.CNP Work Phone: [facility] 10-06-2021 influenza (aIIV4) vaccine, age 65+ yr, quadrivalent, PF (FLUAD QUAD) Dillan Santiago MD Work Phone: [facility] 02-27-2019 pneumococcal polysaccharide vaccine, [address] Vadim Florence DO Work Phone: [facility] 08-19-2009 pneumococcal conjuga te vaccine, [address] Vadim Florence DO Work Phone: [facility] 11-19-2008 zoster vaccine, live Dillan Santiago MD Work Phone: [facility] Payers Date Payer Category Payer Self-pay [id number] 2023 Medicare UHC MEDICARE UHC MEDICARE ADVANTAGE PPO [id number] 2023-Present [phone] [address] [address] [place] [address] PPO [id number] 2023 Medicare (Managed Care) [facility] MEDI CARE ADVANTAGE PPO [id number] 2023 Medicare [id number] Medicare [id number] Medicare Medicare Part A & B [id number] 2A [id number] Unknown [place] [employer] [id number] Unknown [id number] [id number]. 2.462 Unknown [id number] 2.160.1.578493.3.579. 2.462 Unknown [id number] 2.16840.1.762237.3.579. 2.462 Unknown [id number] 2.16.840.1.388078.3.579. 2.462 Unknown [id number] 2.16840.1.680684.3.579. 2.462 Unknown [id number] 2.16.840.1.305953.3.579. 2.462 Unknown [id number] 2.840.1.706626.3.579. 2.462 Unknown [id number] 2.840.1.078461.3.579. 2.462 Unknown [id number] 2.840.1.737383.3.579. 2.462 Unknown [id number] 2.840.1.846550.3.579. 2.462 Unknown [id number] 2.840.1.211786.3.579. 2.462 Unknown [id number] 2.840.1.956916.3.579. 2.462 Unknown [id number] 2.840.1.913403.3.579. 2.462 Unknown [id number] 2.840.1.677220.3.579. 2.462 Unknown [id number] 2.840.1.800222.3.579. 2.462 Unknown [id number] 2.840.1.314723.3.579. 2.462 Unknown [id number] 2.840.1.574596.3.579. 2.462 Unknown [id number] 2.840.1.104172.3.579. 2.462 Unknown [id number] 2.840.1.694709.3.579. 2.462 Unknown [id number] 2.840.1.729491.3.579. 2.462 Unknown [id number] 2.840.1.225690.3.579. 2.462 Unknown [id number] 2.16.840.1.124318.3.579. 2.462 Unknown [id number] 2.16.840.1.529909.3.579. 2.462 Unknown [id number] 2.16.840.1.718873.3.579. 2.462 Social History Date Type Detail Facility Tobacco smoking status [facility] Unknown if ever smoked [facility] Work Phone: Start: 11-04-2019 Never Smoker [facility] Start: 10-29-2019 No History [facility] Start: 10-29-2019 up to date / s hingle up to date [facility] Start: 1940 Sex Assigned At Female T he [facility] Start: 11-05-2024 End: 06-20-2025 Tobacco smoking status [facility] Never smoked tobacco [facility] Start: 11-05-2024 Tobacco use and exposure Smokeless tobacco non-user [facility] Start: 11-05-2024 End: 06-03-2025 Alcoholic beverage intake Lifetime non-drinker (finding) [facility] Start: 11-05-2024 End: 04-17-2025 History of Social function [facility] Start: 11-05-2024 End: 04-17-2025 Tobacco use panel [facility] National Score (1-100), lower number is lower risk 72 [facility] Start: 1940 Sex assigned at Not on file [facility] Start: 12-10-2024 Education 15 [facility] Start: 03-01-2025 Tobacco smoking status [facility] Tobacco smoking consumption unknown (finding) [facility] Start: 03-01-2025 End: 03-12-2025 Sex Female (finding) [facility] Has the electric, gas, oil, or water company threatened to shut off services in your home in past 12Mo No [facility] Are you now , , , , never or living with a partner? [facility] How often to you hav e a drink containing alcohol? Never [facility] How hard is it for you to pay for the very basics like food, housing, medical care, and heating Not very hard [facility] Do you feel stress - tense, restless, nervous, or anxious, or unable to sleep at night because your mind is troubled all the time - these days [OSQ] Very much [facility] (I/We) worried whether (my/our) food would run out before (I/we) got money to buy more. Never true [facility] NEGATED: Highlighted row Not [facility] Medical Equipment Procedure Code Equipment Code Equipment Origin al Text Equipment Identifier Dates ORIF, hip, using Gamma nail ([id number]) Orthopaedic bone screw, non-bioabsorbable, sterile [id number] FDA Start: 03-02-2025 ORIF, hip, using Gamma nail ([id number]) Femur nail, sterile [id number] FDA Start: 03-02-2025 Goals Date Patient Goal Desired Activity /State Functional Status Date Assessment Result Facility 04-17-2025 Total score [AUDIT-C] 0 04/17/20 9:21 AM EDT User, [employer] [facility] 04-17-2025 How often to you hav e a drink containing alcohol? Never 04/17/2025 9:21 AM EDT [facility] Never [facility] 04-17-2025 Functional status Patient does n ot drink 04/17/2025 9:21 AM EDT User, Joserhona Patient does not drink [facility] 04-17-2025 How often do you hav e 6 or more drinks on 1 occasion? Never 04/17/2025 9:21 AM EDT User, [employer] Never [facility] 03-19-2025 Functional status Chair [facility] Work Phone: 03-18-2025 Functional status Tolerates Activity Well [facility] Work Phone: 03-12-2025 Functional status Ambulates [facility] Work Phone: 03-11-2025 Functional status Tolerates Activity Fair [facility] Work Phone: 03-04-2025 Functional status Back to bed [facility] Work Phone: Mental Status Date Assessment Result Facility 05-17-2025 Cognitive function Voice/Name [facility] Work Phone: 03-19-2025 Cognitive function Voice/Name [facility] Work Phone: 03-12-2025 Cognitive function Cooperative [facility] Work Phone: 03-11-2025 Cognitive function Voice/Name [facility] Work Phone: 03-04-2025 Cognitive function Voice/Name [facility] Work Phone: 01-17-2025 Cognitive function Voice/Name [facility] Work Phone: Clinical Notes 11-05-2024 to 06-25-2025 Note Date & Type Note Facility 06-25-2025 Note [facility] 06-20-2025 Discharge summary Note Date/Time June 20, 2025 1:35pm [facility] Medical Records Department [address] [place] [address] Emergency Department Summary 06/20/25 MR#: [id number] Acct: [id number] Name: MICHAELA BRANDT Rep #:[id number] : 1940 84 From: Wesley Jones DO PCP: Dr. Dillan Santiago MD Status:REG E R Location: ED HPI History of Present Illness Chief Complaint: Fall Narrative Narrative: Patient is 84-year-old female with past medical history of hypothyroidism, anxiety, dementia, hypertension who presented to the emergency department chief complaint of fall. Patient states that she tripped over her walker and was found by the home health aide. She is complaining of left hip pain and bilateral knee pain. Per family at bedside earlier in the year she had a hip replacement and she was progressing well with physical therapy and Occupational Therapy and believes that she was just discharged from occupational therapy. They note that she is on Eliquis. [facility] Medical History Closed intertrochanteric fracture of left hip Fall Hypothyroidism Anxiety Dementia Self-catheterizes urinary bladder Hypertension Back pain Home Medications ?Medication ?Instructions ?Recorded ?Last Taken ?Type ascorbic acid (vitamin C) 500 mg 500 mg PO DAILY suppl ement 03/01/25 06/19/25 History tablet (C-500) donepezil 10 mg tablet 10 mg PO DAILY dementia 02/1706/19/25 History escitalopram oxalate 20 mg tablet 20 mg PO DAILY anxie ty 03/01/25 06/19/25 History levothyroxine 50 mcg tablet 50 mcg PO DAILY thyroid 06/19/25 History trazodone 50 mg tablet 50 mg PO QHS anxiety 5 06/19/25 History acetaminophen 500 mg tablet 1,000 mg (2 x 500 mg) PO Q 8 #0 tabs 03/16/25 Unknown Rx apixaban 5 mg tablet (Eliquis) 5 mg PO BID #0 tabs 06/19/25 Rx sennosides 8.6 mg-docusate sodium 1 tab PO BID #0 tabs 03/16/25 Unknown Rx 50 mg tablet (Stimulant Laxative Plus) buspirone 5 mg tablet 5 mg PO BID 06/20/25 5 History cholecalciferol (vitamin D3) 125 125 mcg PO DAILY 01/1306/19/25 History mcg (5,000 unit) capsule clonazepam 0.5 mg tablet 0.5 mg PO Q8H PRN anxiety 06/19/25 History Allergy/AdvReac Type Severity Reaction Status Date / Time No Known Allergies Allergy Verified 06/20/25 08:35 Family History Other Hypertension Surgical History H/O: hysterectomy Status post right knee replacement Social History household members: none housing: apartment current occupational status: retired other: Daughter lives a few doors down helps her on a regular basis Smoking Status: Never smoker alcohol intake: never substance use type: does not use ROS ROS ED ROS Narrative Constitutional: Complains of whole body soreness denies any headaches, lightness, or dizziness Eyes: Denies double vision Cardiovascular: Denies chest pain Respiratory: Denies shortness of breath Abdomen: Denies nausea vomiting diarrhea : Denies any urinary symptoms Neurological: Denies any numbness, weakness, tingling Musculoskeletal: Complains of bilateral knee pain, left elbow pain, left hip pain Skin: Denies any rashes or lesions EXAM Physical Exam Narrative Exam Narrative: General: Patient lying in bed rest comfortably did not appear to be in acute distress Head: Atraumatic, normocephalic Eyes: PERRL bilaterally, EOMI blood, no conjunctival injection noted Neck: Soft, supple, trachea midline Cardiovascular: Regular rate and rhythm Respiratory: Clear to auscultation bilaterally Abdomen: Soft, nondistended, nontender to palpation Musculoskeletal: Patient has mild tenderness palpation of the bilateral knees and mild pain with attempted range of motion of the left hip although bony prominence palpated joints taken through full range of motion no pain elicited Extremities: +4/5 strength noted in the bilateral upper and lower extremities, radial pulses +2/4 in the bilateral extremities Neurological: Patient follow commands as she was at [facility] Skin: Warm, dry, intact patient does have a superficial abrasion noted to her left knee anteriorly as well as some redness on her right knee anteriorly Const Vital Signs: 06/20/25 08:29 06/20/25 09:02 06/20/25 10:28 Temperature 98.1 F Temperature Source Oral Pulse Rate 87 71 Respiratory Rate 16 18 Respiratory Effort Normal Non-Labored Respiratory Depth Normal Respiratory Pattern Normal Blood Pressure 95/81 H 134/106 H Blood Pressure Mean 85 115 Pulse Ox 97 95 Oxygen Delivery Method Room Air Room Air Room Air 06/20/25 12:00 Temperature Temperature Source Pulse Rate 75 Respiratory Rate 26 H Respiratory Effort Respiratory Depth Respiratory Pattern Blood Pressure 153/128 H Blood Pressure Mean 136 Pulse Ox 98 Oxygen Delivery Method MDM MDM MDM Narrative Medical decision making narrative: Patient is a 84-year-old female who presented to the emergency department with achief complaint of fall. On the differential diagnose includes but not limited to intracranial hemorrhage, cervical spine fracture, spine fracture, elbow fracture, knee fracture, periprosthetic hip fracture. Once workup is obtained reviewed she will be reevaluated. Patient's CBC was significant for leukocytosis of 28,000, hemoglobin 14.3, platelet count of 252. Patient INR was 1.6, sodium normal 130, potassium normal3.7, creatinine normal at 0.93. Patient's total bilirubin was 2.15, direct bilirubin is 0.85, AST and ALT are 4719 respectively. Patient's CK level of 914, urinalysis reviewed showed positive nitrates 100 leukocyte esterase no white cells with 1+ bacteria this was sent for culture. Patient's x-ray of her left knee reviewed by myself by radiology showed no acute findings no fracture or dislocation degenerative osteoarthrosis noted. Patient's x-ray of her right knee reviewed showed tricompartmental arthrosis with chondrocalcinosis no demonstrated acute fracture or suspicious osseous lesion surgical hardware in the patella from previous ORIF free of complication. Patient's x-ray of her hipand pelvis reviewed by myself by radiology showed despite the presence of surgical hardware in the left femur I suspect there is nonunion of previously noted intertrochanteric fracture there is small evidence of fracture lucency andcortical irregularity no hardware complication noted H consistent right hip and SI joint arthrosis no acute abnormality. Patient x-ray of elbow reviewed showedosteopenia no demonstrated fracture or joint space abnormalities. This was reviewed by myself and by radiology. Patient's CT head and brain showed no acute intracranial findings chronic findings noted. Patient CT cervical spine reviewed showed no acute fracture or listhesis. Patient CT chest abdomen pelviswith contrast showed no acute thoracic findings persistent findings of pulmonaryfibrosis. CT abdomen pelvis no acute abdominal pelvic findings. There is EKG reviewed showed sinus rhythm rate of 72 bpm. GA interval was 200. Did discuss case with on-call orthopedic surgeon Dr. Rosas and he states that her x-ray looks stable there is nothing acute going on at this point time. Staff attempted to get the patient up and ambulate her she was unable to do so therefore we will reach out to the hospitalist for admission as she lives alone. Discussed case with hospitalist Dr. Molina who accept patient for admission. There is no identifiable source infection however given her generalized weaknessher leukocytosis will give her a gram of Rocephin which was ordered at 1:34 PM. Patient notified and for members all course concerns answered. Lab Data Labs: Laboratory Results - last 24 hr 06/20/25 06/20/25 08:48 11:01 WBC 28.5 H RBC 4.77 Hgb 14.3 Hct 41.5 MCV 87.0 MCH 30.0 MCHC 34.5 RDW Std Deviation 42.5 RDW Coeff of Leslie 13.5 Plt Count 252 MPV 10.6 Immature Gran % (Auto) 1.400 H Neut % (Auto) 89.2 H Lymph % (Auto) 3.5 L [place] % (Auto) 5.6 Eos % (Auto) 0.0 Baso % (Auto) 0.3 Absolute Neuts (auto) 25.4 H Absolute Lymphs (auto) 0.99 Nucleated RBC % 0 Differential Comment PT 19.6 H INR 1.6 APTT 35.6 Sodium 138 Potassium 3.7 Chloride 99 Carbon Dioxide 24.3 Anion Gap 15 BUN 17 Creatinine 0.93 Estim Creat Clear Calc 32.34 L Est GFR (MDRD) Non-Af 60 BUN/Creatinine Ratio 18.1 Glucose 149 H Calcium 9.9 Total Bilirubin 2.15 H Direct Bilirubin 0.85 H AST 47 H ALT 19 Alkaline Phosphatase 121 H Total Creatine Kinase 914 H Total Protein 7.7 Albumin 4.3 Globulin 3.5 Urine Color Yellow Urine Clarity Clear Urine pH 5.0 Ur Specific Thompson 1.015 Urine Protein 30 H Urine Glucose (UA) Normal Urine Ketones 5 H Urine Occult Blood 150 H Urine Nitrite Positive H Urine Bilirubin Negative Urine Urobilinogen Normal Ur Leukocyte Esterase 100 H Urine RBC 10-25 SEEN Urine WBC 0 SEEN Ur Squamous Epith Cells 0-5 SEEN Urine Bacteria 1+ Urine Mucus 0 SEEN Radiography Diagnostic Testing: Clinical Impression(s) from Imaging Studies Brain CT 06/20/25 08:47 IMPRESSION: No acute intracranial findings. Chronic findings as described. Reading Location: [facility] Cervical Spine CT 06/20/25 08:48 IMPRESSION: NO ACUTE CERVICAL FRACTURE. DEGENERATIVE CHANGES. Reading Location: [facility] Chest/Abdomen/Pelvis CT 06/20/25 08:48 IMPRESSION: CT chest: 1. No acute thoracic finding. 2. Persistent findings of pulmonary fibrosis, most compatible with IPF. Thoracic lymphadenopathy can be seen with IPF, however correlation with prior examination is recommended if available. CT abdomen/pelvis: 1. No acute abdominopelvic finding. 2. Partially calcified, enhancing right ovarian nodule, which is indeterminate in etiology and may represent benign or malignant pathology. Correlation with nonemergent, routine pelvic ultrasound recommended for further evaluation. Reading Location: [facility] Elbow X-Ray 06/20/25 09:50 IMPRESSION: Osteopenia, no demonstrated fracture or joint space abnormalities Reading Location: [facility] Hip/Pelvis X-Ray 06/20/25 09:50 IMPRESSION: Despite the presence of surgical hardware in the left femur, I suspect there is nonunion of the previously noted intertrochanteric fracture. There is still evidence of fracture lucency and cortical irregularity. No hardware complication noted. 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 Reading Location: [facility] Knee X-Ray 06/20/25 09:50 IMPRESSION: Tricompartmental arthrosis with chondrocalcinosis, no demonstrated acute fracture or suspicious osseous lesion Surgical hardware in the patella from previous ORIF free of complication Reading Location: [facility] Knee X-Ray 06/20/25 09:50 IMPRESSION: DEGENERATIVE OSTEOARTHROSIS. NO ACUTE FINDINGS. Reading Location: [facility] Discharge Plan Triage Chief Complaint: Fall ED Provider: Wesley Jones Dx/Rx/DC Orders Clinical Impression: Fall, Hypothyroidism, Dementia, Generalized weakness Prescriptions: No Action acetaminophen 500 mg Tablet 1,000 mg PO Q8 Qty: 0 0RF sennosides-docusate sodium [Stimulant Laxative Plus] 8.6-50 mg Tablet 1 tab PO BID Qty: 0 0RF Eliquis 5 mg Tablet 5 mg PO BID Qty: 0 0RF buspirone 5 mg tablet 5 mg PO BID clonazepam 0.5 mg tablet 0.5 mg PO Q8H PRN (Reason: anxiety) Rx Instructions: family states pt takes 1/2 tab am and 1 tab pm pretty routinely cholecalciferol (vitamin D3) 125 mcg (5,000 unit) capsule 125 mcg PO DAILY trazodone 50 mg tablet 50 mg PO [...] Dillan Santiago MD [Primary Care Provider] - Print Language: Georgian Disposition Disposition: Acute Care Hospital [facility] What to do if you have Problems For any increased pain, shortness of breath, bleeding, nausea or vomiting, chestpain, or any unexpected problems, contact your Primary Care Provider. Call [facility] ([phone]) or report to the closest Emergency Room. Call 911 if necessary. 06/20/25 1335 <Electronically signed by Wesley Jones DO> Cosigner Signature (if applicable): CC: Dr. Dillan Santiago MD ~ Signed [facility] Work Phone: [phone]) 869-554908-02-2025 History and physical note [facility] Medical Records Department [address] [place] [address] H&P Exam - Hospitalist 06/20/25 1425 MR#: [id number] Acct: [id number] Name: MICHAELA BRANDT Rep #:[id number] : 1940 84 From: Cindy Molina MD PCP: Dr. Dillan Santiago MD Status:ADM I N Location[place] [facility] [place] [id number] HPI - General General Date of Admission: 06/20/25 Date of Service: 06/20/25 Chief Complaint: Knee pain after fall HPI Narrative MICHAELA BRANDT, is a 84-year-old female history of hypothyroidism, dementia, urinary self catheterization, hypertension, depression, on Eliquis who presentedto [facility] ED 06/20/2025 after a fall. Reportedly had mechanical fall and tripped over her walker and was found by the home health aide, unclear how long she was down. Was complaining of left hip pain and bilateral knee pain. Family did note earlier in the year she had hip replacement and had been progressing well until now.In the ED temp 98.1, heartrate 87 and blood pressure initially 95/81 but improved to 153/28, respiratory rate 16 and pulse ox 97% on room air. CBC notable for white blood cell count of28.5 with normal hemoglobin and platelet count, BMP fairly unremarkable aside from a glucose of 149. Liver profile did have a T. bili of 2.15, direct bili 0.58, AST of 47 and ALP of 121. CPK of 914, unclear how longpatient was down. She was mark scanned with no acute process in the brain and cervical spine, hip and pelvis x- ray showed nonunion of previously noted intertrochanteric fracture despite presence of surgical hardware. Ortho contacted on-call and no acute management recommended. UA with occult blood, nitrate, leuk esterase and bacteria. Patient given IV antibiotics, urine culture sent, and hospitalist contacted for admission. Pt evaluated at bedside. She reports she was in the bathroom earlier andgot up and was walking with her walker but part of the front is worn out causing her to trip, she fell directly on her knees and does report some soreness in bilateral knees but denies any current pain in her hips or any other pain. She is unsure of any urinary symptoms as she chronically self caths. Reports that at some point they are going to do a suprapubic catheter but this has not been scheduled yet. No fevers or other acute complaints [facility] Medical History (Updated 06/20/25 @ 14:[address] Cindy Molina MD) Anxiety Back pain Closed intertrochanteric fracture of left hip Dementia Fall Hypertension Hypothyroidism Self-catheterizes urinary bladder Home Medications ?Medication ?Instructions ?Recorded ?Last Taken ?Type ascorbic acid (vitamin C) 500 mg 500 mg PO DAILY suppl ement 03/01/25 06/19/25 History tablet (C-500) donepezil 10 mg tablet 10 mg PO DAILY dementia 02/1706/19/25 History escitalopram oxalate 20 mg tablet 20 mg PO DAILY anxie ty 03/01/25 06/19/25 History levothyroxine 50 mcg tablet 50 mcg PO DAILY thyroid 06/19/25 History trazodone 50 mg tablet 50 mg PO QHS anxiety 5 06/19/25 History acetaminophen 500 mg tablet 1,000 mg (2 x 500 mg) PO Q 8 #0 tabs 03/16/25 Unknown Rx apixaban 5 mg tablet (Eliquis) 5 mg PO BID #0 tabs 06/19/25 Rx sennosides 8.6 mg-docusate sodium 1 tab PO BID #0 tabs 03/16/25 Unknown Rx 50 mg tablet (Stimulant Laxative Plus) buspirone 5 mg tablet 5 mg PO BID 06/20/25 5 History cholecalciferol (vitamin D3) 125 125 mcg PO DAILY 01/1306/19/25 History mcg (5,000 unit) capsule clonazepam 0.5 mg tablet 0.5 mg PO Q8H PRN anxiety 06/19/25 History Allergy/AdvReac Type Severity Reaction Status Date / Time No Known Allergies Allergy Verified 06/20/25 08:35 Family History Other Hypertension Surgical History H/O: hysterectomy Status post right knee replacement Social History household members: none housing: apartment current occupational status: retired other: Daughter lives a few doors down helps her on a regular basis Smoking Status: Never smoker alcohol intake: never substance use type: does not use ROS ROS Narrative General: Denies fever/chills HENT: Denies headache, denies stuffy nose, denies sore throat EYES: Denies changes in vision Resp: Denies cough, denies shortness of breath Cardiac: Denies chest pain GI: Denies abdominal pain, denies changes in bowel, denies nausea/vomiting : Self catheterizes Extremity: Denies swelling MSK: Denies weakness, has some pain in her knees Neuro: Denies any numbness/tingling Heme: Denies any bleeding or bruising Skin: Has some redness in her knees Psychiatric: No complaints voiced Vital Signs Vital Signs Vital Signs: 06/20/25 08:29 06/20/25 09:02 06/20/25 10:28 Temperature 98.1 F Temperature Source Oral Pulse Rate 87 71 Respiratory Rate 16 18 Respiratory Effort Normal Non-Labored Respiratory Depth Normal Respiratory Pattern Normal Blood Pressure 95/81 H 134/106 H Blood Pressure Mean 85 115 Pulse Ox 97 95 Oxygen Delivery Method Room Air Room Air Room Air 06/20/25 12:00 06/20/25 12:03 06/20/25 12:15 Temperature Temperature Source Pulse Rate 75 76 77 Respiratory Rate 26 H 25 H 18 Respiratory Effort Respiratory Depth Respiratory Pattern Blood Pressure 153/128 H Blood Pressure Mean 136 Pulse Ox 98 99 100 Oxygen Delivery Method 06/20/25 12:30 06/20/25 12:45 06/20/25 13:00 Temperature Temperature Source Pulse Rate 75 88 76 Respiratory Rate 28 H 27 H 28 H Respiratory Effort Respiratory Depth Respiratory Pattern Blood Pressure Blood Pressure Mean Pulse Ox 100 97 99 Oxygen Delivery Method 06/20/25 13:15 06/20/25 13:30 06/20/25 13:45 Temperature Temperature Source Pulse Rate 74 75 68 Respiratory Rate 23 H 28 H 26 H Respiratory Effort Respiratory Depth Respiratory Pattern Blood Pressure Blood Pressure Mean Pulse Ox 98 97 97 Oxygen Delivery Method 06/20/25 14:00 06/20/25 14:15 06/20/25 14:18 Temperature 98.1 F Temperature Source Pulse Rate 64 67 75 Respiratory Rate 20 H 25 H 26 H Respiratory Effort Respiratory Depth Respiratory Pattern Blood Pressure 153/128 H Blood Pressure Mean 136 Pulse Ox 98 97 98 Oxygen Delivery Method Weight Weight: 54.522 kg Body Mass Index (BMI) 23.4 Physical Exam Narrative General: Alert, knows she is at [facility], initially thought year was 2028 but corrected to 2024, knew it was June, no apparent distress HEENT: Atraumatic, normocephalic Eyes: Anicteric, normal conjunctiva, extraocular movements grossly intact Neck: Supple Respiratory: Clear to auscultation bilaterally, normal respiratory effort Cardiovascular: Regular rate and rhythm GI: Soft, nontender, nondistended Extremities: No edema Musculoskeletal: Moving all extremities Neuro: No overt focal neurological deficits Skin: Does have some erythema over both knees and left knee with superficial abrasion Psych: Cooperative Results Lab / Micro Data 06/20/25 08:48 06/20/25 08:48 Labs: Laboratory Results - last 24 hr 06/20/25 08:48: WBC 28.5 H, RBC 4.77, Hgb 14.3, Hct 41.5, MCV 87.0, MCH 30.0, MCHC 34.5, RDW Std Deviation 42.5, RDW Coeff of Leslie 13.5, Plt Count 252, MPV 10.6, Immature Gran % (Auto) 1.400 H, Neut %(Auto) 89.2 H, Lymph % (Auto) 3.5 L, [place] % (Auto) 5.6, Eos % (Auto) 0.0, Baso % (Auto) 0.3, Absolute Neuts (auto) 25.4 H, Absolute Lymphs (auto) 0.99, Nucleated RBC % 0, Differential Comment , PT 19.6 H, INR 1.6, APTT 35.6, Sodium 138, Potassium 3.7, Chloride 99, Carbon Dioxide 24.3, Anion Gap 15,BUN 17, Creatinine 0.93, Estim Creat Clear Calc 32.34 L, Est GFR (MDRD) Non-Af 60, BUN/Creatinine Ratio 18.1, Glucose 149 H, Calcium 9.9, Total Bilirubin 2.15 H, Direct Bilirubin 0.85 H, AST 47 H, ALT 19, Alkaline Phosphatase 121 H, Total Creatine Kinase 914 H, Total Protein 7.7, Albumin 4.3, Globulin 3.5 06/20/25 11:01: Urine Color Yellow, Urine Clarity Clear, Urine pH 5.0, Ur Specific Thompson 1.015, Urine Protein 30 H, Urine Glucose (UA) Normal, Urine Ketones 5 H, Urine Occult Blood 150 H, Urine Nitrite Positive H, Urine BilirubinNegative, Urine Urobilinogen Normal, Ur Leukocyte Esterase 100 H, Urine RBC 10-25 SEEN, Urine WBC 0 SEEN, Ur Squamous Epith Cells 0-5 SEEN, Urine Bacteria 1+, Urine Mucus 0 SEEN Imaging Radiology Impression Brain CT 06/20/25 08:47 IMPRESSION: No acute intracranial findings. Chronic findings as described. Reading Location: [facility] Cervical Spine CT 06/20/25 08:48 IMPRESSION: NO ACUTE CERVICAL FRACTURE. DEGENERATIVE CHANGES. Reading Location: [facility] Chest/Abdomen/Pelvis CT 06/20/25 08:48 IMPRESSION: CT chest: 1. No acute thoracic finding. 2. Persistent findings of pulmonary fibrosis, most compatible with IPF. Thoracic lymphadenopathy can be seen with IPF, however correlation with prior examination is recommended if available. CT abdomen/pelvis: 1. No acute abdominopelvic finding. 2. Partially calcified, enhancing right ovarian nodule, which is indeterminate in etiology and may represent benign or malignant pathology. Correlation with nonemergent, routine pelvic ultrasound recommended for further evaluation. Reading Location: [id number] Elbow X-Ray 06/20/25 09:50 IMPRESSION: Osteopenia, no demonstrated fracture or joint space abnormalities Reading Location: [id number] Hip/Pelvis X-Ray 06/20/25 09:50 IMPRESSION: Despite the presence of surgical hardware in the left femur, I suspect there is nonunion of the previously noted intertrochanteric fracture. There is still evidence of fracture lucency and cortical irregularity. No hardware complication noted. 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 Reading Location: [id number] Knee X-Ray 06/20/25 09:50 IMPRESSION: Tricompartmental arthrosis with chondrocalcinosis, no demonstrated acute fracture or suspicious osseous lesion Surgical hardware in the patella from previous ORIF free of complication Reading Location: [id number] Knee X-Ray 06/20/25 09:50 IMPRESSION: DEGENERATIVE OSTEOARTHROSIS. NO ACUTE FINDINGS. Reading Location: [id number] Assessment & Plan Assessment/Plan (1) Fall: (2) Generalized weakness: (3) Abnormal finding on urinalysis: (4) Self-catheterizes urinary bladder: PLAN: Plan #Mechanical fall -Pt reports she was in the bathroom and got up and tripped while using her walker - Does have pain in bilateral knees however patient was scanned no acute process - Supportive care - PT/OT - Case management consult # Abnormal UA in the setting of self-catheterization - UA with nitrates and leuk esterase and bacteria, this is suggestive of UTI andgiven her elevated white blood cell count feel it is reasonable to treat empirically while awaiting urine culture - Continue Rocephin - Will have Lizarraga placed while inpatient #right ovarian nodule -CT w/ Partially calcified, enhancing right ovarian nodule, which is indeterminate in etiology and may represent benign or malignant pathology -Correlation with nonemergent, routine pelvic ultrasound recommended for furtherevaluation #Hypothyroidism -Continue Synthroid #Depression/anxiety -Continue home medications #Dementia -Supportive care -Continue home medications #DVT ppx: Patient chronically on Eliquis Cindy Molina MD Charges/Coding Visit Charges Inpatient E&M: 46878 Init Hosp L2 06/20/25 9514 Cosigner Signature (if applicable): CC: Dr. Dillan Santiago MD; Dr. Cindy Molina MD~ Signed [facility]08-02-2025 Discharge summary [facility] Medical Records Department [address] [place] [address] Emergency Department Summary 06/20/25 MR#: [id number] Acct: [id number] Name: MICHAELA BRANDT Rep #:[id number] : 1940 84 From: Wesley Jones DO PCP: Dr. Dillan Santiago MD Status:REG E R Location: ED HPI History of Present Illness Chief Complaint: Fall Narrative Narrative: Patient is 84-year-old female with past medical history of hypothyroidism, anxiety, dementia, hypertension who presented to the emergency department chief complaint of fall. Patient states that she tripped over her walker and was found by the home health aide. She is complaining of left hip pain and bilateral knee pain. Per family at bedside earlier in the year she had a hip replacement and she was progressing well with physical therapy and Occupational Therapy and believes that she was just discharged from occupational therapy. They note that she is on Eliquis. [facility] Medical History Closed intertrochanteric fracture of left hip Fall Hypothyroidism Anxiety Dementia Self-catheterizes urinary bladder Hypertension Back pain Home Medications ?Medication ?Instructions ?Recorded ?Last Taken ?Type ascorbic acid (vitamin C) 500 mg 500 mg PO DAILY suppl ement 03/01/25 06/19/25 History tablet (C-500) donepezil 10 mg tablet 10 mg PO DAILY dementia 02/1706/19/25 History escitalopram oxalate 20 mg tablet 20 mg PO DAILY anxie ty 03/01/25 06/19/25 History levothyroxine 50 mcg tablet 50 mcg PO DAILY thyroid 06/19/25 History trazodone 50 mg tablet 50 mg PO QHS anxiety 5 06/19/25 History acetaminophen 500 mg tablet 1,000 mg (2 x 500 mg) PO Q 8 #0 tabs 03/16/25 Unknown Rx apixaban 5 mg tablet (Eliquis) 5 mg PO BID #0 tabs 06/19/25 Rx sennosides 8.6 mg-docusate sodium 1 tab PO BID #0 tabs 03/16/25 Unknown Rx 50 mg tablet (Stimulant Laxative Plus) buspirone 5 mg tablet 5 mg PO BID 06/20/25 5 History cholecalciferol (vitamin D3) 125 125 mcg PO DAILY 01/1306/19/25 History mcg (5,000 unit) capsule clonazepam 0.5 mg tablet 0.5 mg PO Q8H PRN anxiety 06/19/25 History Allergy/AdvReac Type Severity Reaction Status Date / Time No Known Allergies Allergy Verified 06/20/25 08:35 Family History Other Hypertension Surgical History H/O: hysterectomy Status post right knee replacement Social History household members: none housing: apartment current occupational status: retired other: Daughter lives a few doors down helps her on a regular basis Smoking Status: Never smoker alcohol intake: never substance use type: does not use ROS ROS ED ROS Narrative Constitutional: Complains of whole body soreness denies any headaches, lightness, or dizziness Eyes: Denies double vision Cardiovascular: Denies chest pain Respiratory: Denies shortness of breath Abdomen: Denies nausea vomiting diarrhea : Denies any urinary symptoms Neurological: Denies any numbness, weakness, tingling Musculoskeletal: Complains of bilateral knee pain, left elbow pain, left hip pain Skin: Denies any rashes or lesions EXAM Physical Exam Narrative Exam Narrative: General: Patient lying in bed rest comfortably did not appear to be in acute distress Head: Atraumatic, normocephalic Eyes: PERRL bilaterally, EOMI blood, no conjunctival injection noted Neck: Soft, supple, trachea midline Cardiovascular: Regular rate and rhythm Respiratory: Clear to auscultation bilaterally Abdomen: Soft, nondistended, nontender to palpation Musculoskeletal: Patient has mild tenderness palpation of the bilateral knees and mild pain with attempted range of motion of the left hip although bony prominence palpated joints taken through full range of motion no pain elicited Extremities: +4/5 strength noted in the bilateral upper and lower extremities, radial pulses +2/4 in the bilateral extremities Neurological: Patient follow commands as she was at [facility] Skin: Warm, dry, intact patient does have a superficial abrasion noted to her left knee anteriorly as well as some redness on her right knee anteriorly Const Vital Signs: 06/20/25 08:29 06/20/25 09:02 06/20/25 10:28 Temperature 98.1 F Temperature Source Oral Pulse Rate 87 71 Respiratory Rate 16 18 Respiratory Effort Normal Non-Labored Respiratory Depth Normal Respiratory Pattern Normal Blood Pressure 95/81 H 134/106 H Blood Pressure Mean 85 115 Pulse Ox 97 95 Oxygen Delivery Method Room Air Room Air Room Air 06/20/25 12:00 Temperature Temperature Source Pulse Rate 75 Respiratory Rate 26 H Respiratory Effort Respiratory Depth Respiratory Pattern Blood Pressure 153/128 H Blood Pressure Mean 136 Pulse Ox 98 Oxygen Delivery Method MDM MDM MDM Narrative Medical decision making narrative: Patient is a 84-year-old female who presented to the emergency department with achief complaint of fall. On the differential diagnose includes but not limited to intracranial hemorrhage, cervical spine fracture, spine fracture, elbow fracture, knee fracture, periprosthetic hip fracture. Once workupis obtained reviewed she will be reevaluated. Patient's CBC was significant for leukocytosis of 28,000, hemoglobin 14.3, platelet count of 252. Patient INR was 1.6, sodium normal 130, potassium normal3.7, creatinine normal at 0.93. Patient's total bilirubin was 2.15, direct bilirubin is 0.85, AST and ALT are 4719 respectively. Patient's CK level of 914, urinalysis reviewed showed positive nitrates 100 leukocyte esterase no white cells with 1+ bacteria this was sent for culture. Patient's x-ray of her left knee reviewed by myself by radiology showed no acute findings no fracture or dislocation degenerative osteoarthrosis noted. Patient's x-ray of her right knee reviewed showed tricompartmental arthrosis with chondrocalcinosis no demonstr ated acute fracture or suspicious osseous lesion surgical hardware in the patella from previous ORIF free of complication. Patient's x-ray of her hipand pelvis reviewed by myself by radiology showed despite the presence of surgical hardware in the left femur I suspect there is nonunion of previously noted intertrochanteric fracture there is small evidence of fracture lucency andcortical irregularity no hardware complication noted H consistent right hip and SI joint arthrosis no acute abnormality. Patient x-ray of elbow reviewed showedosteopenia no demonstrated fracture or joint space abnormalities. This was reviewed by myself and by radiology. Patient's CT head and brain showed no acute intracranial findings chronic findings noted. Patient CT cervical spine reviewed showed no acute fracture or listhesis. Patient CT chest abdomen pelviswith contrast showed no acute thoracic findings persistent findings of pulmonaryfibrosis. CT abdomen pelvis no acute abdominal pelvic findings. There isEKG reviewed showed sinus rhythm rate of 72 bpm. GA interval was 200. Did discuss case with on-call orthopedic surgeon Dr. Rosas and he states that her x-ray looks stable there is nothing acute going on at this point time. Staff attempted to get the patient up and ambulate her she was unable to do so therefore we will reach out to the hospitalist for admission as she lives alone. Discussed case with hospitalist Dr. Molina who accept patient for admission. There is no identifiable source infection however given her generalized weaknessher leukocytosis will give her a gram of Rocephin which was ordered at 1:34 PM. Patient notified and for members all course concerns answered. Lab Data Labs: Laboratory Results - last 24 hr 06/20/25 06/20/25 08:48 11:01 WBC 28.5 H RBC 4.77 Hgb 14.3 Hct 41.5 MCV 87.0 MCH 30.0 MCHC 34.5 RDW Std Deviation 42.5 RDW Coeff of Leslie 13.5 Plt Count 252 MPV 10.6 Immature Gran % (Auto) 1.400 H Neut % (Auto) 89.2 H Lymph % (Auto) 3.5 L [place] % (Auto) 5.6 Eos % (Auto) 0.0 Baso % (Auto) 0.3 Absolute Neuts (auto) 25.4 H Absolute Lymphs (auto) 0.99 Nucleated RBC % 0 Differential Comment PT 19.6 H INR 1.6 APTT 35.6 Sodium 138 Potassium 3.7 Chloride 99 Carbon Dioxide 24.3 Anion Gap 15 BUN 17 Creatinine 0.93 Estim Creat Clear Calc 32.34 L Est GFR (MDRD) Non-Af 60 BUN/Creatinine Ratio 18.1 Glucose 149 H Calcium 9.9 Total Bilirubin 2.15 H Direct Bilirubin 0.85 H AST 47 H ALT 19 Alkaline Phosphatase 121 H Total Creatine Kinase 914 H Total Protein 7.7 Albumin 4.3 Globulin 3.5 Urine Color Yellow Urine Clarity Clear Urine pH 5.0 Ur Specific Thompson 1.015 Urine Protein 30 H Urine Glucose (UA) Normal Urine Ketones 5 H Urine Occult Blood 150 H Urine Nitrite Positive H Urine Bilirubin Negative Urine Urobilinogen Normal Ur Leukocyte Esterase 100 H Urine RBC 10-25 SEEN Urine WBC 0 SEEN Ur Squamous Epith Cells 0-5 SEEN Urine Bacteria 1+ Urine Mucus 0 SEEN Radiography Diagnostic Testing: Clinical Impression(s) from Imaging Studies Brain CT 06/20/25 08:47 IMPRESSION: No acute intracranial findings. Chronic findings as described. Reading Location: [facility] Cervical Spine CT 06/20/25 08:48 IMPRESSION: NO ACUTE CERVICAL FRACTURE. DEGENERATIVE CHANGES. Reading Location: [facility] Chest/Abdomen/Pelvis CT 06/20/25 08:48 IMPRESSION: CT chest: 1. No acute thoracic finding. 2. Persistent findings of pulmonary fibrosis, most compatible with IPF. Thoracic lymphadenopathy can be seen with IPF, however correlation with prior examination is recommended if available. CT abdomen/pelvis: 1. No acute abdominopelvic finding. 2. Partially calcified, enhancing right ovarian nodule, which is indeterminate in etiology and may represent benign or malignant pathology. Correlation with nonemergent, routine pelvic ultrasound recommended for further evaluation. Reading Location: [facility] Elbow X-Ray 06/20/25 09:50 IMPRESSION: Osteopenia, no demonstrated fracture or joint space abnormalities Reading Location: [facility] Hip/Pelvis X-Ray 06/20/25 09:50 IMPRESSION: Despite the presence of surgical hardware in the left femur, I suspect there is nonunion of the previously noted intertrochanteric fracture. There is still evidence of fracture lucency and cortical irregularity. No hardware complication noted. 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 Reading Location: [facility] Knee X-Ray 06/20/25 09:50 IMPRESSION: Tricompartmental arthrosis with chondrocalcinosis, no demonstrated acute fracture or suspicious osseous lesion Surgical hardware in the patella from previous ORIF free of complication Reading Location: [facility] Knee X-Ray 06/20/25 09:50 IMPRESSION: DEGENERATIVE OSTEOARTHROSIS. NO ACUTE FINDINGS. Reading Location: [facility] Discharge Plan Triage Chief Complaint: Fall ED Provider: Wesley Jones Dx/Rx/DC Orders Clinical Impression: Fall, Hypothyroidism, Dementia, Generalized weakness Prescriptions: No Action acetaminophen 500 mg Tablet 1,000 mg PO Q8 Qty: 0 0RF sennosides-docusate sodium [Stimulant Laxative Plus] 8.6-50 mg Tablet 1 tab PO BID Qty: 0 0RF Eliquis 5 mg Tablet 5 mg PO BID Qty: 0 0RF buspirone 5 mg tablet 5 mg PO BID clonazepam 0.5 mg tablet 0.5 mg PO Q8H PRN (Reason: anxiety) Rx Instructions: family states pt takes 1/2 tab am and 1 tab pm pretty routinely cholecalciferol (vitamin D3) 125 mcg (5,000 unit) capsule 125 mcg PO DAILY trazodone 50 mg tablet 50 mg PO [...] Dillan Santiago MD [Primary Care Provider] - Print Language: Georgian Disposition Disposition: Acute Care Hospital [facility] What to do if you have Problems For any increased pain, shortness of breath, bleeding, nausea or vomiting, chestpain, or any unexpected problems, contact your Primary Care Provider. Call [facility] ([phone]) or report tothe closest Emergency Room. Call 911 if necessary. 06/20/25 1335 Cosigner Signature (if applicable): CC: Dr. Dillan Santiago MD ~ Signed [facility]08-02-2025 Radiology Diagnostic study note [facility] Imaging Services [address] [place] [id number] Elbow min 3 Views MR#: [id number] Acct: [id number] Name: MICHAELA BRANDT Rep #: [id number] : 1940 F 84 From: Ari Salmon MD PCP: Dr. Dillan Santiago MD Status: REG E R Study:Elbow min 3 Views Date of Exam: Exam# [id number] Ordering Dr: Deena Jones DO PROCEDURE: ELBOW MIN 3 VIEWS 06/20/2025 REASON FOR EXAM: FALL TECHNIQUE: ELBOW MIN 3 VIEWS FINDINGS: Bones: Bones are demineralized. No demonstrated acute fracture or suspicious osseous lesion Joints: Well-preserved Soft tissues: No suspicious soft tissue swelling or joint effusion Other: RAD/Elbow min 3 Views IMPRESSION: Osteopenia, no demonstrated fracture or joint space abnormalities Reading Location: [facility] CC: Dr. Dillan Santiago MD; Dr. Wesley Jones DO ~ Welding Setter: Signed [facility]08-02-2025 Radiology Diagnostic study note [facility] Imaging Services [address] [place], [place] [id number] Knee 1 or 2 Views MR#: [id number] Acct: [id number] Name: MICHAELA BRANDT Rep #: [id number] : 1940 F 84 From: Jo Rabago MD PCP: Dr. Dillan Santiago MD Status: REG E R Study:Knee 1 or 2 Views Date of Exam: Exam# [id number] Ordering Dr: Deena Jones DO PROCEDURE: KNEE 1 OR 2 VIEWS 06/20/2025 REASON FOR EXAM: FALL TECHNIQUE: KNEE 1 OR 2 VIEWS, left COMPARISON: Left knee radiographs 03/06/2025. FINDINGS: Bones: No acute fracture. No aggressive osseous lesion. Unchanged irregularityof the left lateral femoral condyle, likely partially healed, chronic fracture deformity. Joints: Moderate degenerative changes. Effusion: No effusion. Soft tissues: Soft tissues are unremarkable. Vascular calcifications. RAD/Knee 1 or 2 Views IMPRESSION: DEGENERATIVE OSTEOARTHROSIS. NO ACUTE FINDINGS. Reading Location: [id number] CC: Dr. Dillan Santiago MD; Dr. Wesley Jones DO ~ Welding Setter: Signed [facility]08-02-2025 Radiology Diagnostic study note [facility] Imaging Services [address], [place] [id number] HIP, UNI W/ Pelvis 2-3 Views MR#: [id number] Acct: [id number] Name: MICHAELA BRANDT Rep #: [id number] : 1940 F 84 From: Ari Salmon MD PCP: Dr. Dillan Santiago MD Status: REG E R Study:HIP, UNI W/ Pelvis 2-3 Views Date of Ex am: 06/20/25 Exam# [id number] Ordering Dr: Deena Jones DO PROCEDURE: HIP, UNI W/ PELVIS 2-3 VIEWS 06/20/2025 REASON FOR EXAM: Pain after a fall TECHNIQUE: HIP, UNI W/ PELVIS 2-3 VIEWS COMPARISON: 03/01/2025 FINDINGS: The bones are demineralized. Since the previous study, the patient has undergone placement of surgical hardware to reduce a left femoral fracture. The fracture has not yet completely healed there still evidence of fracture lucency suggesting the likely nonunion but the hardware is intact and free of complication. Age consistent right hip and SI joint arthrosis, no acute fracture or suspiciousosseous lesion. 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 There is still evidence of fracture lucency and cortical irregularity. No hardware complication noted. 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 Reading Location: [facility] CC: Dr. Dillan Santiago MD; Dr. Wesley Jones DO ~ Welding Setter: Signed [facility]08-02-2025 Radiology Diagnostic study note [facility] Imaging Services [address] [place] [address] Knee 1 or 2 Views MR#: [id number] Acct: [id number] Name: MICHAELA BRANDT Rep #: [id number] : 1940 F 84 From: Ari Salmon MD PCP: Dr. Dillan Santiago MD Status: REG E R Study:Knee 1 or 2 Views Date of Exam: Exam# [id number] Ordering Dr: Deena Jones DO PROCEDURE: KNEE 1 OR 2 VIEWS 06/20/2025 REASON FOR EXAM: Pain after fall TECHNIQUE: KNEE 1 OR 2 VIEWS COMPARISON: None FINDINGS: Bones: Bones are demineralized. There has been previous open reduction internalfixation of a patellar fracture. Hardware is intact and free of complication. The fracture has healed. Joints: Moderate tricompartmental arthrosis Effusion: No joint effusion Soft tissues: Chondrocalcinosis noted in the medial and lateral compartments Other: Peripheral calcifications in the popliteal artery RAD/Knee 1 or 2 Views IMPRESSION: Tricompartmental arthrosis with chondrocalcinosis, no demonstrated acute fracture or suspicious osseous lesion Surgical hardware in the patella from previous ORIF free of complication Reading Location: [facility] CC: Dr. Dillan Santiago MD; Dr. Wesley Jones DO ~ Welding Setter: Signed [facility]08-02-2025 Radiology Diagnostic study note [facility] Imaging Services [address] [place], [place] [id number] CT Chest, Abd, Pel w/Contrast MR#: [id number] Acct: [id number] Name: MICHAELA BRANDT Rep #: [id number] : 1940 F 84 From: Jo Rabago MD PCP: Dr. Dillan Santiago MD Status: REG E R Study:CT Chest, Abd, Pel w/Contrast Date of E xam: 06/20/25 Exam# [id number] Ordering Dr: Deena Jones DO PROCEDURE: CT CHEST, ABD, PEL W/CONTRAST 06/20/2025 REASON FOR EXAM: FALL TECHNIQUE: Chest, abdomen and pelvis CT with intravenous contrast. Coronal and Sagittal reconstruction series were provided. One or more dose reduction techniques were used (e.g., Automated exposure control, adjustment of the mA and/or kV according to patient size, use of iterative reconstruction technique. PATIENT PREPARATION: Per protocol ORAL CONTRAST TYPE: None. CONTRAST: Isovue 370 VOLUME: 100mL RADIATION DOSE SUMMARY: DLP: 1100 mGycm COMPARISON: Chest radiograph 03/11/2025. FINDINGS: CT CHEST: Hardware: None. Lymph nodes: No axillary or hilar lymphadenopathy. There is lymphadenopathy of the left upper paratracheal and right lower paratracheal lymph nodes. Heart and Vasculature: The heart is normal in size without pericardial effusion. The great vessels are normal in caliber. Severe coronary artery calcifications, and severe mixed plaque of the thoracic aorta. Lungs and Airways: The central airways are grossly patent. Visualization is slightly limited by motion artifact. Persistent findings of emphysema/fibrosis, greatest in the bibasilar, dependent lungs, withmild honeycombing and reticulations. No pleural effusion or pneumothorax. Bones: Thoracic spondylosis. Chronic left humeral head fracture deformity. Stable right humeral head enostosis. No acute fracture. CT ABDOMEN/PELVIS: Liver: The liver is normal in size without suspicious hepatic mass. The major portal veins are patent. No biliary ductal dilation. Gallbladder: No radiopaque stones within the gallbladder. Spleen: Unremarkable. Pancreas: Grossly unremarkable. Adrenals: Small bilateral adrenal nodules, likely adenomas. Kidneys: Mild symmetric renal cortical scarring. No hydronephrosis or nephrolithiasis. Bladder: Distended and unremarkable. Reproductive Organs: Prior hysterectomy. Partially calcified, enhancing right ovarian nodule, measuring approximately 1.7 x 1.5 cm (series 9, image 84). Bowel: The bowel loops are nondilated. No ascites or pneumoperitoneum. Distal colonic diverticulosis. Normal appendix. Lymph nodes: No suspicious lymphadenopathy. Vasculature: Severe mixed plaque of the aortoiliac vessels, with multifocal ectasia. Bones: Lumbar spondylosis. Prior ORIF of the left femur. Moderate rightward curvature of the lumbarspine. CT/CT Chest, Abd, Pel w/Contrast IMPRESSION: CT chest: 1. No acute thoracic finding. 2. Persistent findings of pulmonary fibrosis, most compatible with IPF. Thoracic lymphadenopathy can be seen with IPF, however correlation with prior examination is recommended if available. CT abdomen/pelvis: 1. No acute abdominopelvic finding. 2. Partially calcified, enhancing right ovarian nodule, which is indeterminate in etiology and may represent benign or malignant pathology. Correlation with nonemergent, routine pelvic ultrasound recommended for further evaluation. Reading Location: [id number] CC: Dr. Dillan Santiago MD; Dr. Wesley Jones, DO ~ Welding Setter: Signed [facility]08-02-2025 Radiology Diagnostic study note [facility] Imaging Services [address] [place], [place] [id number] Spine Cervical without Contras MR#: [id number] Acct: [id number] Name: MICHAELA BRANDT Rep #: [id number] : 1940 F 84 From: Jo Rabago MD PCP: Dr. Dillan Santiago MD Status: REG E R Study:Spine Cervical without Contras Date of Exam: 06/20/25 Exam# [id number] Ordering Dr: Deena Jones DO PROCEDURE: SPINE CERVICAL WITHOUT CONTRAS 06/20/2025 REASON FOR EXAM: TRAUMA TECHNIQUE: Cervical spine CT without contrast. Coronal and Sagittal reconstruction series were provided. One or more dose reduction techniques were used (e.g., Automated exposure control, adjustment of the mA and/or kV according to patient size, use of iterative reconstruction technique. RADIATION DOSE SUMMARY: DLP: 800 mGycm COMPARISON: None. FINDINGS: Alignment: There is mild exaggeration of the normal cervical lordosis. No traumatic listhesis. Vertebrae: No acute cervical fracture. Multilevel anterior and posterior diffuse bridging osteophyte complexes, degenerative disc disease with vacuum effect, and uncovertebral and facet hypertrophy resulting in multilevel central and neural foraminal stenosis, greatest and of moderate degree at C4-5. Soft Tissues: No prevertebral or subcutaneous hematoma. Calcific plaque of the left cervical carotid artery. CT/Spine Cervical without Contras IMPRESSION: NO ACUTE CERVICAL FRACTURE. DEGENERATIVE CHANGES. Reading Location: [facility] CC: Dr. Dillan Santiago MD; Dr. Wesley Jones DO ~ Welding Setter: Signed [facility]08-02-2025 Radiology Diagnostic study note [facility] Imaging Services [address] [place] [id number] Brain/Head without Contrast MR#: [id number] Acct: [id number] Name: MICHAELA BRANDT Rep #: [id number] : 1940 F 84 From: Jo Rabago MD PCP: Dr. Dillan Santiago MD Status: REG E R Study:Brain/Head without Contrast Date of Exa m: 06/20/25 Exam# [id number] Ordering Dr: Deena Jones DO EXAM: BRAIN/HEAD WITHOUT CONTRAST CLINICAL HISTORY: 84 y/o F with TRAUMA. Tripped over walker. COMPARISON: CT head 03/01/2025. TECHNIQUE: Routine CT imaging of the head without IV contrast. Additional multiplanar reformats were obtained. Dose reduction techniques were used including intermediate exposure control (AEC),iterative reconstruction technique, and/or mA and/or KV dose adjustments based on patient's size. FINDINGS: There is moderate generalized cerebral volume loss with concordant prominence ofthe ventricles and subarachnoid spaces. Moderate patchy supratentorial white matter hypodensities. No acute intracranial hemorrhage or herniation. The murray-white matter interfaces are otherwise maintained. The orbits, visualized paranasal sinuses and mastoids are unremarkable. No acute calvarial fracture or scalp hematoma. CT/Brain/Head without Contrast IMPRESSION: No acute intracranial findings. Chronic findings as described. Reading Location: [id number] CC: Dr. Dillan Santiago MD; Dr. Wesley Jones, DO ~ Welding Setter: Signed [facility]07-31-2025 Telephone encounter Note* Telephone Encounter - Gabi Mcelroy RN - 06/18/2025 1:43 PM EDT Called and left a detailed voicemail notifying Brissa from [facility] message. Clinic phone number was left in case she had any questions. Gabi Mcelroy RN [facility]07-31-2025 Miscellaneous Notes* Telephone Encounter - Gabi Mcelroy RN - 06/18/2025 1:43 PM EDT Called and left a detailed voicemail notifying Brissa from [facility] message. Clinic phone number was left in case she had any questions. Gabi Mcelroy RN * Telephone Encounter - Dillan Santiago MD - 06/18/2025 1:35 PM EDT Noted and agree Regards, Dillan Santiago MD * Telephone Encounter - Gabi Mcelroy RN - 06/17/2025 4:59 PM EDT Brissa from [facility] called in to let provider know that [...] now. Gabi Mcelroy RN documented in this encounterC[facility]07-31-2025 Telephone encounter Note * Telephone Encounter - Dillan Santiago MD - 06/18/2025 1:35 PM EDT Noted and agree Regards, Dillan Santiago MD [facility]07-30-2025 Telephone encounter Note* Telephone Encounter - Gabi Mcelroy RN - 06/17/2025 4:59 PM EDT Brissa from [facility] called in to let provider know that she went out to recertify the Pt. She reports nursing will be seeing the Pt once a week for 6 weeks to monitor a stage 2 ulcer on the L buttock. She states it is 0.3 x 0.3, so it is almost healed. They are just putting Triad cream on it now. Gabi Mcelroy RN [facility]07-16-2025 NoteHNO ID: [id number] Author: DILLAN SANTIAGO MD Service: ? Author [...] a month ago, which was treated at [facility]. Michaela expresses reluctance to continue self-catheterization due to the risk of introducing infections and is considering a suprapubic catheter as an alternative. Michaela has not yet undergone an echocardiogram that was previously scheduled. She expresses a desire to reschedule the appointment. Michaela is also experiencing issues with thickened toenails, which are causing discomfort when wearing shoes. She has an appointment with a natural sciences department chair next month for evaluation and treatment. Michaela [...] Michaela's daughter, who currently holds power of workers compensation defense attorney, is trying to prevent this. Michaela [...] of recurrent UTIs, most recently treated at [facility]. Currently self-catheterizing four times daily, which [...] with sleep. - Refill (more content not included)...[facility]07-16-2025 History of Present illness Narrative* Dillan Santiago MD - 06/03/2025 12:25 PM EDT Reason for Visit Follow up HPI Michaela [...] present and providing history, notes that the skillednurse has extended services for a few more weeks. Michaela sustained a hip fracture, which was repaired surgically. She reports that the surgery was painful but states that the hip is no longer causing her problems. She is currently using a wheelchair for mobility. Michaela has a history of recurrent UTIs and is currently performing self- catheterization four times a day. Her daughter notes that Michaela had a UTI about a month ago, which was treated at [facility]. Michaela expresses reluctance to continue self-catheterization due to the risk of introducing infections and is considering a suprapubic catheter as an alternative. Michaela has not yet undergone an echocardiogram that was previously scheduled. She expresses a desire to reschedule the appointment. Michaela is also experiencing issues with thickened toenails, which are causing discomfort when wearingshoes. She has an appointment with a natural sciences department chair next month for evaluation and treatment. Michaela is currently taking clonazepam, half a tablet in the morning and a full tablet in the evening,to help with sleep. She also takes vitamins C and D. She expresses concern about the number of medications she is taking. Michaela is facing legal issues with her sister, who is seeking guardianship. Michaela's daughter, who currently holds power of workers compensation defense attorney, is trying to prevent this. Michaela [...] of recurrent UTIs, most recently treated at [facility]. Currently self-catheterizing four times daily, which [...] excuse any unintended typographical errors. Recording using Matter and Form software for draft documentation of the visit was discussed with the patient/authorized insurance representative; all questions welcomed and answered. Patient/authorized insurance representative agreed to proceed Spent more than 40 mins face to face with patient Dillan Santiago MD documented in this encounterC[facility]07-16-2025 Instructions* Patient Instructions* Dillan Santiago MD - 06/03/2025 12:05 PM [...] This condition requires specialized care from a natural sciences department chair, as regular nail trimming is not sufficient. - You already have an appointment scheduled with podiatry in June. At that visit, they will assess your nails and provide appropriate treatment. - I documented the findings in your chart to ensure the natural sciences department chair is aware of the condition and can [...] please contact our office. documented in this encounterC[facility]07-08-2025 Telephone encounter Note * Telephone Encounter - Mike Guo MA - 05/26/2025 11:28 AM EDT Forms completed and faxed back to # provided: [phone]. Mike Guo MA [facility]07-08-2025 Miscellaneous Notes* Telephone Encounter - Mike Guo MA - 05/26/2025 11:28 AM EDT Forms completed and faxed back to # provided: [phone]. Mike Guo MA * Telephone Encounter - Mike Guo MA - 05/20/2025 5:02 PM EDT Forms given to PCP for review/signature. Mike Guo MA * Telephone Encounter - Jagruti Veliz - 05/20/2025 10:51 AM EDT Patient's daughter dropped off forms that need filled out and [facility]ed [facility], [facility] [employer], att [phone]. Forms given to nurse. Please assist. documented in this encounterC[facility]07-02-2025 Telephone encounter Note * Telephone Encounter - Mike Guo MA - 05/20/2025 5:02 PM EDT Forms given to PCP for review/signature. Mike Guo MA [facility]07-02-2025 Telephone encounter Note* Telephone Encounter - Jagruti Veliz - 05/20/2025 10:51 AM EDT Patient's daughter dropped off forms that need filled out and faxed to [facility], [employer]BI[place] Silvah, att [phone]. Forms given to nurse. Please assist. [facility]06-29-2025 Discharge summary [facility] Medical Records Department [address] [place] [address] Emergency Department Summary 05/17/25 MR#: [id number] Acct: [id number] Name: MICHAELA BRANDT Rep #:[id number] : 1940 84 From: Domingo Darby MD PCP: Dr. Dillan Santiago MD Status:REG E R Location: ED HPI History of Present Illness Chief Complaint: Confusion Informant: patient and family (Daughter) Onset/Context/Timing Onset: Days Context: Gradual Onset Timing: Continuous Current Severity: Mild Maximum Severity: Mild Narrative Narrative: 84-year-old female history of prior left hip fracture in February. Dementia. Self- catheterization and hypertension. She lives in an apartment. Daughter as healthy is here to help her occupational and physical therapy and some mcfp. They also have cameras in and keep [...] Prior similar symptoms: Yes Recent Illness/Hospitalization: Yes PFSH PFSH Medical History Closed intertrochanteric [...] nontender withoutedema or cords. Back nontender. Neurologically sheis awake. She is alert. She is answering [...] to inspection, nondistended, normoactive bowel sounds, non-tender, non- distended and no masses Auscultation: normoactive bowel sounds [...] MDM MDM Narrative Medical decision making narrative: [id number] female with dementia lives at home with [...] cells. No squamous cells no bacteria. Culture willbe sent. Chemistry shows sodium 142. Gap 12. [...] 78.8 H Lymph % (Auto) 14.1 L [place] % (Auto) 5.1 Eos % (Auto) 0.9 Baso % (Auto) 0.6 Absolute Neuts (auto) 6.9 Absolute Lymphs (auto) 1.24 Nucleated RBC % 0 Sodium 142 Potassium 3.9 Chloride 104 Carbon Dioxide 26.5 Anion Gap 12 BUN 15 Creatinine 0.96 Est GFR (MDRD) Non-Af 58 L BUN/Creatinine Ratio 15.6 Glucose 97 Calcium 9.0 Urine Color Yellow Urine Clarity Clear Urine pH 6.0 Ur Specific Thompson 1.020 Urine Protein 30 H Urine Glucose [...] improving or return if worse. Print Language: Georgian Disposition Disposition: Home, Self Care What to do if you have Problems For any increased pain, shortness of breath, bleeding, nausea or vomiting, chestpain, or any unexpected problems, contact your Primary Care Provider. Call [facility] ([phone]) or report tothe closest Emergency Room. Call 911 if necessary. 05/17/25 1136 Cosigner Signature (if applicable): CC: Dr. Dillan Santiago MD ~ Signed [facility]06-24-2025 Telephone encounter Note* Telephone Encounter - Michaelle Tai RN - 05/12/2025 1:23 PM EDT Phoned Ivis and given provider's message below. Ivis states she believes pt is taking the lasixas ordered 2 x's a week. Ivis is not at work today but will double check when she goes back and call back if there has been a change in how pt is taking the lasix. [facility]06-24-2025 Miscellaneous Notes* Telephone Encounter - Michaelle Tai RN - 05/12/2025 1:23 PM EDT Phoned [facility] and given provider's message below. Ivis states she believes pt is taking the lasixas ordered 2 x's a week. Ivis is not at work today but will double check when she goes back and call back if there has been a change in how pt is taking the lasix. * Telephone Encounter - Dillan Santiago MD - 05/11/2025 5:08 PM EDT Do not want chest xr just yet Is she taking her lasix as ordered, 2 times a week? Regards, Dillan Santiago MD * Telephone Encounter - Michaelle Tai RN - 05/07/2025 11:08 AM EDT [facility]- [facility] reports pt has fine crackles in the bases of her lungs again. Reports patientdenies Shortness of Breath, and the swelling has decreased. No fever. Otherwise, besides pt's anxiety she feels great. Asking if pcp wants to order a CXR? If pcp wants to order a CXR please fax order to [facility] # [phone] Please advise and phone Ivis with reply: [phone] documented in this encounterC[facility]06-23-2025 Telephone encounter Note * Telephone Encounter - Dillan Santiago MD - 05/11/2025 5:08 PM EDT Do not want chest xr just yet Is she taking her lasix as ordered, 2 times a week? Regards, Dillan Santiago MD [facility]06-20-2025 Telephone encounter Note* Telephone Encounter - Michaela Davila MA - 05/08/2025 1:22 PM EDT Daughter Maribeth notified. [facility]06-20-2025 Miscellaneous Notes* Telephone Encounter - Michaela Davila MA - 05/08/2025 1:22 PM EDT Daughter Maribeth notified. * Telephone Encounter - Michaela Davila MA - 05/08/2025 1:18 PM EDT ----- Message from Dillan Santiago MD sent at 05/07/2025 4:44 PM EDT ----- Please let patient know, She does not seem to be in a cardiac failure, her swelling of the legs is likely dependent edema. Iwould encourage her to use compression stockings and to elevate her legs. It would benefit if she takes Lasix once in 3 days for the next couple months. RegardsDillan MD documented in this encounterCleveland Clinic [facility]06-20-2025 Telephone encounter Note * Telephone Encounter - Michaela Davila MA - 05/08/2025 1:18 PM EDT ----- Message from Dillan Santiago MD sent at 05/07/2025 4:44 PM EDT ----- Please let patient know, She does not seem to be in a cardiac failure, her swelling of the legs is likely dependent edema. Iwould encourage her to use compression stockings and to elevate her legs. It would benefit if she takes Lasix once in 3 days for the next couple months. Regards, Dillan Santiago MD [facility]06-19-2025 Telephone encounter Note* Telephone Encounter - Mike Guo MA - 05/07/2025 2:29 PM EDT The following approved medication requests have been transmitted electronically. Requested Prescriptions Signed Prescriptions Disp Refills busPIRone (BUSPAR) 5 mg tablet 60 tablet 3 Sig: Take 1 tablet by mouth two times a day. Authorizing Provider: DILLAN SANTIAGO MA [facility]06-19-2025 Miscellaneous Notes* Telephone Encounter - Mike Guo MA - 05/07/2025 2:29 PM EDT The following approved medication requests have been transmitted electronically. Requested Prescriptions Signed Prescriptions Disp Refills busPIRone (BUSPAR) 5 mg tablet 60 tablet 3 Sig: Take 1 tablet by mouth two times a day. Authorizing Provider: DILLAN SANTIAGO MA * Telephone Encounter - Dillan Santiago MD - 05/06/2025 7:08 PM EDT I started her on buspar. RegardsDillan MD * Telephone Encounter - Kecia Red RN - 05/06/2025 4:50 PM EDT Gabi PT with [facility] calls to let provider know that patient [...] advise. Kecia Red RN documented in this encounterCleveland Clinic [facility]06-19-2025 Telephone encounter Note * Telephone Encounter - Michaelle Tai RN - 05/07/2025 11:08 AM EDT [facility]- [facility] reports pt has fine crackles in the bases of her lungs again. Reports patientdenies Shortness of Breath, and the swelling has decreased. No fever. Otherwise, besides pt's anxiety she feels great. Asking if pcp wants to order a CXR? If pcp wants to order a CXR please fax order to [facility] # [phone] Please advise and phone Ivis with reply: [phone] [facility]06-18-2025 Telephone encounter Note* Telephone Encounter - Dillan Santiago MD - 05/06/2025 7:08 PM EDT I started her on buspar. Regards, Dillan Santiago MD [facility]06-18-2025 Telephone encounter Note* Telephone Encounter - Kecia Red RN - 05/06/2025 4:50 PM EDT Gabi PT with [facility] calls to let provider know that [...] Please review and advise. Kecia Red RN [facility]06-18-2025 NoteHNO ID: [id number] Author: DILLAN SANTIAGO MD Service: ? Author [...] is currently receiving home care services, including [facility], physical therapy, and occupational therapy. She has aides assisting her from [phone] and [phone] daily. Due to financial constraints, the family [...] a wheelchair. She also mentions having a "gentleman friend" who visits twice a week. Social History [...] mg tablet Catheter (SELF-CATHETER, FEMALE) 14 Fr [facility] Maintenance DTaP,Tdap,Td Vaccine(1 - Tdap) Bone [...] prolonged self-catheterization. Patient expresses (more content not included)...[facility]06-18-2025 History of Present illness Narrative* Dillan Santiago MD - 05/06/2025 11:24 AM EDT Reason for Visit Follow up HPI Michaela Brandt is a 84-year-old female, with a history of urinary retention requiring self-catheterization, presenting for follow-up on lower extremity edema and urinary catheter management. She is accompanied by her daughter, who is providing additional history. Michaela is currently receiving home care services, including [facility], physical therapy, and occupational therapy. She has aides assisting her from [phone] and [phone] daily. Due to financialconstraints, the family is considering reducing the hours [...] which repeatedly dislodged. A skilled nurse suggested thatthe catheter may be dislodging due to Michaela's long history of self-catheterization, leading to increased urethral elasticity. Michaela expresses a strong preference for continuing self- catheterization andis opposed to having a permanent catheter. She denies hematuria and reports no current symptoms of a UTI, such as dysuria. She typically self-catheterizes four times a day but occasionally does so atnight. Michaela has also been experiencing weight loss, with a decrease from 134 lbs to 123 lbs over the past two months. She reports that her weight has stabilized. She was started on Aricept 3 months ago for memory issues and reports no significant side effects. She is able to ambulate to the bathroom usinga walker and is not using a wheelchair. She also mentions having a "gentleman friend" who visits [facility] a week. Social History Tobacco Use Smoking [...] mg tablet Catheter (SELF-CATHETER, FEMALE) 14 Fr [facility] Maintenance DTaP,Tdap,Td Vaccine(1 - Tdap) Bone [...] of 6 months. - Prescription sent to [facility] pharmacy for 3 months supply. 5. [...] complications. Patient is ambulatory with a walker andnot using a wheelchair. - Continue physical therapy to strengthen lower extremities. - Follow-up with orthopedic surgeon as scheduled. Voice recognition software was used to compose this office note. Please excuse any unintended typographical errors. Recording using Matter and Form software for draft documentation of the visit was discussed with the patient/authorized insurance representative; all questions welcomed and answered. Patient/authorized insurance representative agreed to proceed Dillan Santiago MD documented in this encounterC[facility] Telephone encounter Note * Telephone Encounter - Pamela Power MA - 05/04/2025 4:11 PM EDT Detailed message on secure voicemail. Pamela Power MA May 04, 2025 4:11 PM [facility]06-16-2025 Miscellaneous Notes* Telephone Encounter - Pamela Power MA - 05/04/2025 4:11 PM EDT Detailed message on secure voicemail. Pamela Power MA May 04, 2025 4:11 PM * Telephone Encounter - Dillan Santiago MD - 05/04/2025 4:00 PM EDT Verbal ok to order all these labs chest x-ray, BNP, CMP, and A1C for patient? Regards, Dillan Santiago MD * Telephone Encounter - Nisah Clayton LPN - 05/04/2025 8:45 AM EDT Brittni with [facility] calls in regards to TE from 04/24: Solange Craig, ZACHARIAH MG 04/24/25 11:13 AM Note Brissa from [facility] is calling due to she saw [...] CXR. Nisha Clayton LPN documented in this encounterCleveland Clinic [facility] Telephone encounter Note * Telephone Encounter - Dillan Santiago MD - 05/04/2025 4:01 PM EDT I dont usually do the catheters and have not done for her. I would like Urology to take care of this Regards, Dillan Santiago MD [facility]06-16-2025 Miscellaneous Notes* Telephone Encounter - Dillan Santiago MD - 05/04/2025 4:01 PM EDT I dont usually do the catheters and have not done for her. I would like Urology to take care of this Regards, Dillan Santiago MD * Telephone Encounter - Nusrat Palmer LPN - 05/04/2025 9:05 AM EDT Images from the original note were not included. Tom Baltazar PA-C You3 days ago Yeemeterio I though Silas was doing this VADIM [place], [place], PAManjeetC You Tom Baltazar PA-Syeda days ago KURTIS Hayes, do you want this sent to PCP to address? Patient was seen previously by you you once and was to [facility]. Nusrat Palmer LPN * Telephone Encounter - Sarah Donahue RN - 04/27/2025 4:18 PM EDT JAIRON 12/23/24 * Telephone Encounter - Ophelia Ansari MA - 04/27/2025 2:23 PM EDT Home health care requesting orders for catheter. Patient was sent home from ortho rehab with a catheter but has pulled it out. Patient is fighting placed catheter but home health reports cognitive issues and doubts her ability to straight cath. Home health requesting catheter size and placement of orders. Please fax to Savanah at [facility] [phone]. JAIRON notes faxed through [employer]. Ophelia Ansari MA documented in this encounterCleveland Clinic [facility]06[facility] Telephone encounter Note * Telephone Encounter - Dillan Santiago MD - 05/04/2025 4:00 PM EDT Verbal ok to order all these labs chest x-ray, BNP, CMP, and A1C for patient? Regards, Dillan Santiago MD [facility]06-16-2025 Telephone encounter Note* Telephone Encounter - Nusrat Palmer LPN - 05/04/2025 9:05 AM EDT Images from the original note were not included. Tom Baltazar PA-C You3 days ago Allyssa I though Silas was doing this VADIM [place], [place], PAManjeetC You Tom Baltazar PA-C5 days ago KURTIS Hayes, do you want this sent to PCP to address? Patient was seen previously by you you once and was to [facility]. Nusrat Palmer LPN [facility]06-16-2025 Telephone encounter Note* Telephone Encounter - Nisha Clayton LPN - 05/04/2025 8:45 AM EDT Brittni with [facility] calls in regards to TE from 04/24: Solange Craig RN MG 04/24/25 11:13 AM Note Brissa from [facility] is calling due to she saw [...] above labs and CXR. Nisha Clayton LPN [facility]06-14-2025 Telephone encounter Note* Telephone Encounter - Radha Haro LPN - 05/02/2025 9:55 AM EDT Spoke to [facility], Patient just picked up Celexa 20mg RX yesterday, 05/01/2025, she has refills remaining. Radha Haro LPN [facility]06-14-2025 Miscellaneous Notes* Telephone Encounter - Radha Haro LPN - 05/02/2025 9:55 AM EDT Spoke to [facility], Patient just picked up Celexa 20mg RX yesterday, 05/01/2025, she has refills remaining. Radha Haro LPN documented in this encounterCleveland Clinic [facility]06-[facility] Telephone encounter Note * Telephone Encounter - Mariposa Márquez APRN.CNP - 05/01/2025 4:36 PM EDT PDMP website checked and validated. All prescriptions have been APPROPRIATELY filled. No suspiciousactivity was identified. 05/01/2025 by Mariposa Márquez APRN.ARIEL [facility]06-13-2025 Miscellaneous Notes* Telephone Encounter - Mariposa Márquez APRN.CNP - 05/01/2025 4:36 PM EDT PDMP website checked and validated. All prescriptions have been APPROPRIATELY filled. No suspiciousactivity was identified. 05/01/2025 by Mairposa Márquez APRN.CNP * Telephone Encounter - Marisol Tomlinson MA - 05/01/2025 4:23 PM EDT Patient has been identified by name [...] you. Marisol Tomlinson MA. documented in this encounterCleveland Clinic [facility]06[facility]-20[facility] Telephone encounter Note * Telephone Encounter - Marisol Tomlinson MA - 05/01/2025 4:23 PM EDT Patient has been identified by name [...] Please advise. Thank you. Marisol Tomlinson MA. [facility]06-09-2025 Telephone encounter Note* Telephone Encounter - Sarah Donahue RN - 04/27/2025 4:18 PM EDT JAIRON 12/23/24 [facility]06-09-2025 Telephone encounter Note* Telephone Encounter - Ophelia Ansari MA - 04/27/2025 2:23 PM EDT Home health care requesting orders for catheter. Patient was sent home from ortho rehab with a catheter but has pulled it out. Patient is fighting placed catheter but home health reports cognitive issues and doubts her ability to straight cath. Home health requesting catheter size and placement of orders. Please fax to Savanah at [facility] [phone]. JAIRON notes faxed through [employer]. Ophelia Ansari MA [facility]06-06-2025 Telephone encounter Note* Telephone Encounter - Gabi Mcelroy RN - 04/24/2025 4:02 PM EDT Pts daughter called in and was asking about if she should take her mother to [facility] ER or a [facility] ER. She states since she is affiliated with [facility] would it be in her best interest to just go to the [facility]. I told her that is up to her, but the closest one would be [place], [facility], or [place]. She said jay went to [facility] they could always get her transfer to a [facility] facility. I told her it really dependson what they find when they do blood work when she get there. She said she would talk it over with her . Gabi Mcelroy RN [facility]06-06-2025 Miscellaneous Notes* Telephone Encounter - Gabi Mcelroy RN - 04/24/2025 4:02 PM EDT Pts daughter called in and was asking about if she should take her mother to [facility] ER or a [facility] ER. She states since she is affiliated with [facility] would it be in her best interest to just go to the [facility]. I told her that is up to her, but the closest one would be [place], [facility], or [place]. She said jay went to [facility] they could always get her transfer to a [facility] facility. I told her it really dependson what they find when they do blood work when she get there. She said she would talk it over with her . Gabi Mcelroy RN * Telephone Encounter - Porsha Vasquez RN - 04/24/2025 2:42 PM EDT Patient's daughter Maribeth Shin calling regarding patient. Expresses concern that patient is declining. Reports patient's current weight is 106.6 lbs. Per record pt was approx 127 lbs on 04/17/25. Reports lower extremity edema, abnormal lung sounds, decreased appetite, decreased mental stateand 2-5 episodes of diarrhea per day. Urinary catheter was noted to be out, was replaced today. Daughter reports HH staff heard fluid in pt's lungs. With this call, along with previous note requesting imaging and blood work, and pt's Full Code status, this nurse advised ER based on all sx's. Daughter agreeable. Porsha Vasquez RN * Telephone Encounter - Solange Craig RN - 04/24/2025 11:10 AM EDT Brissa from [facility] is calling due to she saw [...] called back with information. documented in this encounterCleveland [facility]06[facility] Telephone encounter Note * Telephone Encounter - Porsha Vasquez RN - 04/24/2025 2:42 PM EDT Patient's daughter Maribeth Shin calling regarding patient. Expresses concern that patient is declining. Reports patient's current weight is 106.6 lbs. Per record pt was approx 127 lbs on 04/17/25. Reports lower extremity edema, abnormal lung sounds, decreased appetite, decreased mental stateand 2-5 episodes of diarrhea per day. Urinary catheter was noted to be out, was replaced today. Daughter reports HH staff heard fluid in pt's lungs. With this call, along with previous note requesting imaging and blood work, and pt's Full Code status, this nurse advised ER based on all sx's. Daughter agreeable. Porsha Vasquez RN [facility]06-06-2025 Telephone encounter Note* Telephone Encounter - Mike Guo MA - 04/24/2025 1:33 PM EDT Patient active MyChart. Patient notified via BookBag message. Mike Guo MA [facility]06-06-2025 Miscellaneous Notes* Telephone Encounter - Mike Guo MA - 04/24/2025 1:33 PM EDT Patient active MyChart. Patient notified via [employer] message. Mike Guo MA * Telephone Encounter - Dillan Santiago MD - 04/24/2025 11:23 AM EDT Ordered as requested Regards, Dillan Santiago MD documented in this encounterCleveland Clinic [facility]06[facility]20[facility] Telephone encounter Note * Telephone Encounter - Dillan Santiago MD - 04/24/2025 11:23 AM EDT Ordered as requested Regards, Dillan Santiago MD [facility]06-06-2025 Telephone encounter Note* Telephone Encounter - Solange Craig RN - 04/24/2025 11:10 AM EDT Brissa from [facility] is calling due to she saw [...] advise, nurse needs called back with information. [facility]06-04-2025 Telephone encounter Note* Telephone Encounter - Mckenzie Lombardo LPN - 04/22/2025 9:42 AM EDT Called and spoke to patients jossie Stahl, will forward message to Home health Mckenzie Lombardo LPN April 22, 2025 9:42 AM [facility]06-04-2025 Miscellaneous Notes* Telephone Encounter - Mckenzie Lombardo LPN - 04/22/2025 9:42 AM EDT Called and spoke to patients jossie Stahl, will forward message to Home health Mckenzie Lombardo LPN April 22, 2025 9:42 AM * Telephone Encounter - Dillan Santiago MD - 04/21/2025 5:23 PM EDT Would consider Compression stockings to be put on her and lifting her legs If that does not work we can give her a little lasix. Regards, Dillan Santiago MD * Telephone Encounter - Nisha Clayton LPN - 04/21/2025 1:03 PM EDT Larisa with [facility] calls to report [...] is some discomfort at times but foot isnot painful. Nisha Clayton LPN documented in this encounterCleveland [facility]06[facility]20[facility] Telephone encounter Note * Telephone Encounter - Dillan Santiago MD - 04/21/2025 5:23 PM EDT Would consider Compression stockings to be put on her and lifting her legs If that does not work we can give her a little lasix. Regards, Dillan Santiago MD [facility]06-03-2025 Telephone encounter Note* Telephone Encounter - Nisha Clayton LPN - 04/21/2025 1:03 PM EDT Larisa with [facility] calls to report [...] is some discomfort at times but foot isnot painful. Nisha Clayton LPN [facility]06-02-2025 Telephone encounter Note* Telephone Encounter - Gabi Mcelroy RN - 04/20/2025 6:39 PM EDT See TE from 04/20/25 My SN with [facility] was going to have updated medication list faxed overto provider office. Gabi Mcelroy RN [facility]06-02-2025 Miscellaneous Notes* Telephone Encounter - Gabi Mcelroy RN - 04/20/2025 6:39 PM EDT See TE from 04/20/25 My CAO with [facility] was going to have updated medication list faxed overto provider office. Gabi Mcelroy RN * Telephone Encounter - Mike Guo MA - 04/17/2025 11:43 AM EDT TC to nurse at [place] to obtain current med list. Unable to reach. Left detailed message for nurse to [facility]. PCP office needs updated med list. Mike Guo MA documented in this encounterCleveland [facility]06[facility] Telephone encounter Note * Telephone Encounter - Gabi Mcelroy RN - 04/20/2025 6:38 PM EDT Called and left a detailed voicemail notifying My CAO with [facility] of providers message. Clinic phone number was left in case she had any questions. Gabi Mcelroy RN [facility]06-02-2025 Miscellaneous Notes* Telephone Encounter - Gabi Mcelroy RN - 04/20/2025 6:38 PM EDT Called and left a detailed voicemail notifying My CAO with [facility] of providers message. Clinic phone number was left in case she had any questions. Gabi Mcelroy RN * Telephone Encounter - Dillan Santiago MD - 04/20/2025 5:39 PM EDT Verbal ok for the same Regards, Dillan Santiago MD * Telephone Encounter - Gabi Mcelroy RN - 04/20/2025 5:11 PM EDT My SN with [facility] called and is notified of providers message. She voices understanding and reports that yes she does need the orders for the 16 chinese indwelling lizarraga. She states she can take a verbal order for that and we can leave a VM as her line is secure. She is also going to have her office fax over an updated [facility] when she is done with her note. Gabi Mcelroy, RN * Telephone Encounter - Dillan Santiago MD - 04/20/2025 4:54 PM EDT Agree Does she need orders for the 16 chinese indwelling lizarraga? Thanks Regards, Dillan Santiago MD * Telephone Encounter - Josy Saucedo RN - 04/20/2025 4:03 PM EDT Call received from My nurse at [facility], regarding orders for Pt (see below notation). [facility] nurse observed Pt self-cath, and she was not cleansing herself well. Pt's daughter is voicing concern about Pt's inability to do this at home. [facility] is requesting order for chronic indwelling lizarraga cathether, 16F. Last OV with urology - Tom Baltazar PA-C: 12/23/2024 My [facility] nurse phone: [facility] office phone: Fax number for orders: Josy Saucedo RN April 20, 2025 4:07 PM * Telephone Encounter - Katie Langston LPN - 04/20/2025 3:35 PM EDT My calling back she will fax list from the SNF and will have to update med list with her admission notes to home health and fax that when she is able. * Telephone Encounter - Gabi Mcelroy RN - 04/20/2025 3:14 PM EDT Called and left a message for My CAO with [facility] that if she has an updated medication list from [facility] if she could fax that to Dr Santiago at [phone]. Gabi Mcelroy RN * Telephone Encounter - Gabi Mcelroy RN - 04/20/2025 2:50 PM EDT My CAO with [facility] called in POC. She states SN will be seeing Pt three times a week for 2 weeks, then twice a week for 3 weeks, thenonce a week for 3 weeks. She states [...] cath herself and she had to prompt herto clean herself before straight cathing. Pt was able to empty her bladder over the toilet, and gotquite a bit out. The nurse said she told Pt and her daughter to continue to do this until she couldsee if she could get an order for a lizarraga cath. 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 She states she covered it w ith a DuoDerm. She was asking if the provider could put in an order for this to cover with a DuoDerm and change Q 2-5 days depending on soilage. Please call and advise. Gabi Mcelroy RN documented in this encounterCleveland [facility]06[facility] Telephone encounter Note * Telephone Encounter - Dillan Santiago MD - 04/20/2025 5:39 PM EDT Verbal ok for the same Regards, Dillan Santiago MD [facility]06-02-2025 Telephone encounter Note* Telephone Encounter - Gabi Mcelroy RN - 04/20/2025 5:11 PM EDT My CAO with [facility] called and is notified of providers message. She voices understanding and reports that yes she does need the orders for the 16 chinese indwelling lizarraga. She states she can take a verbal order for that and we can leave a VM as her line is secure. She is also going to have her office fax over an updated medication list [facility] when she is done with her note. Gabi Mcelroy RN [facility]06-02-2025 Telephone encounter Note* Telephone Encounter - Dillan Santiago MD - 04/20/2025 4:54 PM EDT Agree Does she need orders for the 16 chinese indwelling lizarraga? Thanks Regards, Dillan Santiago MD [facility]06-02-2025 Telephone encounter Note* Telephone Encounter - Josy Saucedo RN - 04/20/2025 4:03 PM EDT Call received from My nurse at [facility], regarding orders for Pt (see below notation). [facility] nurse observed Pt self-cath, and she was not cleansing herself well. Pt's daughter is voicing concern about Pt's inability to do this at home. [facility] is requesting order for chronic indwelling lizarraga cathether, 16F. Last OV with urology - Tom Balta[facility] office phone: Fax number for orders: Josy Saucedo RN April 20, 2025 4:07 PM [facility]06-02-2025 Telephone encounter Note* Telephone Encounter - Katie Langston LPN - 04/20/2025 3:35 PM EDT My calling back she will fax list from the SNF and will have to update med list with her admission notes to [facility] and fax that when she is able. [facility]06-02-2025 Telephone encounter Note* Telephone Encounter - Gabi Mcelroy RN - 04/20/2025 3:14 PM EDT Called and left a message for My SN with [facility] that if she has an updated medication list from [facility] if she could fax that to Dr Santiago at [phone]. Gabi Mcelroy RN [facility]06-02-2025 Telephone encounter Note* Telephone Encounter - Gabi Mcelroy RN - 04/20/2025 2:50 PM EDT My CAO with [facility] called in POC. She states SN will be seeing Pt three times a week for 2 weeks, then twice a week for 3 weeks, thenonce a week for 3 weeks. She states [...] cath herself and she had to prompt herto clean herself before straight cathing. Pt was able to empty her bladder over the toilet, and gotquite a bit out. The nurse said she told Pt and her daughter to continue to do this until she couldsee if she could get an order for a lizarraga cath. 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 She states she covered it w ith a DuoDerm. She was asking if the provider could put in an order for this to cover with a DuoDerm and change Q 2-5 days depending on soilage. Please call and advise. Gabi Mcelroy RN [facility]05-30-2025 Telephone encounter Note* Telephone Encounter - Dillan Santiago MD - 04/17/2025 5:33 PM EDT We discussed about letter and she said she will message me when needed Regards, Dillan Santiago MD [facility]05-30-2025 Miscellaneous Notes* Telephone Encounter - Dillan Santiago MD - 04/17/2025 5:33 PM EDT We discussed about letter and she said she will message me when needed Regards, Dillan Santiago MD * Telephone Encounter - Kentrell [facility] MSW - 04/17/2025 3:00 PM EDT Thomas spoke with patient daughter in regards to Home Health questions and also current housing AL options. Maribeth and Thomas discussed that [facility] looks to be an option for home healthcare. Thomas left message for [facility] referral line to call this [facility] back to confirm if they will be serving patient home healthcare needs. Maribeth notes that [facility] will be providing home home care specialist next week when patient stays at her apt. Maribeth notes that patient will then be coming [facility] Maribeth notes that she is working on getting bedroom ready at there home for patient to come and stay with he. There is a wait list at [facility]. Thomas will let patient daughter know what she finds out from [facility] . Maribeth also mentioned a letter for her mom's current [address] apt, to see about being released from her housing there. Thomas noted that she would send message to Dr. Santiago to see what she says about letter. * Telephone Encounter - Kentrell Montgomery MSW - 04/17/2025 1:49 PM EDT Thomas tried call to patient daughter and vmail is full, unable to leave message. Thomas will try call another time. * Telephone Encounter - Kentrell Montgomery MSW - 04/17/2025 12:57 PM EDT This Sw received SW consult and will work on reaching out to patient daughter to discuss social service needs. This Sw also notes that there is a message from today from [facility] noting orders for SN,PT,OT. It looks like Dr. Santiago agreed to [facility] seeing patient. documented [facility] Telephone encounter Note * Telephone Encounter - Kentrell Montgomery MSW - 04/17/2025 3:00 PM EDT Sw spoke with patient daughter in regards to Home Health questions and also current housing AL options. Maribeth and Thomas discussed that [facility] looks to be an option for home healthcare. Sw left message for [facility] referral line to call this Sw back to confirm if they will be serving patient home healthcare needs. Maribeth notes that [facility] will be providing home home care specialist next week when patient stays at her apt. Maribeth notes that patient will then be coming to stay with her,[facility] Maribeth notes that she is working on getting bedroom ready at there home for patient to come and stay with he. There is a wait list at [facility]. Thomas will let patient daughter know what she finds out from [facility]. Maribeth also mentioned a letter for her mom's current [address] apt, to see about being released from her housing there. Thomas noted that she would send message to Dr. Santiago to see what she says about letter. [facility]05-[facility] Telephone encounter Note* Telephone Encounter - Kentrell Montgomery MSW - 04/17/2025 1:49 PM EDT Sw tried call to patient daughter and vmail is full, unable to leave message. Thomas will try call another time. [facility]05[facility]25 NoteHNO ID: [id number] Author: DILLAN SANTIAGO MD Service: ? Author [...] until 03/04, followed by a stay at [facility] beginning on 03/19. Michaela is scheduled to be discharged from [facility] on Sunday. Her daughter has arranged for 16 hours of daily care for a week post-discharge and is exploring long-term care options, including assisted living facilities. Michaela has developed pressure ulcers, described as "bed sores," which require management by a skilled nurse. [...] and balance issues. - Referral sent to [facility] for PT and OT. 2. 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 Healing is delayed, contributing to mobility issues. - Monitor healing progress through follow-up appointments. - Co (more content not included)...[facility]05-30-2025 Telephone encounter Note* Telephone Encounter - Kentrell Montgomery MSW - 04/17/2025 12:57 PM EDT This Sw received consult and will work on reaching out to patient daughter to discuss social service needs. This Sw also notes that there is a message from today from [employer] [facility] noting orders for SN,PT,OT. It looks like Dr. Santiago agreed to [facility] seeing patient. [facility] History of Present illness Narrative* Dillan Santiago MD - 04/17/2025 12:57 PM EDT Reason for Visit Transition care follow up [...] until 03/04, followed by a stay at [facility] beginning on 03/19. Michaela is scheduled to be discharged from [facility] on Sunday. Her daughter has arranged for 16 hours of daily care for a week post-discharge and is exploring long-term care options, including assisted living facilities. Michaela has developed pressure ulcers, described as "bed sores," which require management by a skillednurse. She is currently using an indwelling urinary catheter and is unable to resume self-catheterization. Michaela has been experiencing loose stools and has reduced her food intake due to a lack of appe tite. Her current weight is approximately 127 lbs. She is also using adult incontinence products. Michaela has a history of left hip fracture, which was repaired with a screw rather than a replacement.She has been experiencing balance issues and lower extremity weakness, which have worsened since the fall. Prior to the fall, she was using a walker and occasionally a cane. 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 She is taking multiple medications, incl uding Aricept, Trazodone, and Lexapro, which was recently [...] base, no slough noted. Maceration noted in theintergluteal cleft. HEAD: Normocephalic. EYES: PERRLA, EOMI, conjunctiva [...] and balance issues. - Referral sent to [facility] for PT and OT. [...] to be stage 2 ulcer - Ordered mcfp for wound care management. - Utilize hypochlorous acid for cleaning and apply collagenase as needed. - Implement measures to offload pressure and promote healing. 5. Urinary catheter in place (Z96.0) Indwelling urinary catheter in place; patient is no longer able to perform self- catheterization dueto physical limitations and risk of UTIs. - [...] excuse any unintended typographical errors. Recording using Matter and Form software for draft documentation of the visit was discussed with the patient/authorized insurance representative; all questions welcomed and answered. Patient/authorized insurance representative agreed to proceed Dillan Santiago MD documented in this encounterCleveland [facility]05-30-[facility]25 Instructions* Patient Instructions* Dillan Santiago MD - 04/17/2025 12:47 PM EDT We discussed your current health concerns and care plan: - Pressure Ulcers (Bedsores): - You have three small pressure ulcers (less than 1 cm each) on your left buttock and sacral region, with some moisture-associated skin damage. These are likely stage 2 or 3 but do not currently haveslough, which is a positive sign for healing. - care home will be arranged to clean and care [...] you have experienced in the past. - care home will assist with catheter care, including monthly [...] Ensure) into your diet to support healing andmaintain your strength. These were helpful during your stay at [facility]. - Mental Health: - You are experiencing anxiety and depression, which have been challenging for you. Your current medications include Lexapro (recently increased) and Trazodone, which may help with these symptoms. - A psychiatric evaluation may be beneficial to further address your mental health needs. This willbe coordinated as part of your care plan. - Medications: - You are currently on a blood thinner (Eliquis) due to a history of deep vein thrombosis (DVT). This will continue until May. - Other medications include Aricept (for memory), Trazodone, Lexapro, and others. We are awaiting an updated medication list from [facility] to confirm all current prescriptions and dosages. - Living Arrangements: - Your daughter is exploring assisted living options for you, including a facility in [facility]. This will require private pay for [...] - A referral has been sent to [facility] for mcfp, PT, andOT. They will also assess your eligibility for [...] support your care needs. Next Steps: - care home, PT, and OT will be arranged through [...] or any other concerns. documented in this encounterCleveland [facility]05-30-2025 Telephone encounter Note * Telephone Encounter - Mike Guo MA - 04/17/2025 11:43 AM EDT TC to nurse at [facility] to obtain current med list. Unable to reach. Left detailed message for nurse to [facility]. PCP office needs updated med list. Mike Guo MA [facility]05-30-[facility] Telephone encounter Note* Telephone Encounter - Gabi Mcelroy RN - 04/17/2025 10:54 AM EDT Wes with [facility] called and is notified of providers message. She voices understanding. Gabi Mcelroy RN [facility]05-30-[facility]25 Miscellaneous Notes* Telephone Encounter - Gabi Mcelroy RN - 04/17/2025 10:54 AM EDT Wes with [facility] called and is notified of providers message. She voices understanding. Gabi Mcelroy RN * Telephone Encounter - Dillan Santiago MD - 04/17/2025 10:43 AM EDT Will follow Dillan Patel MD * Telephone Encounter - Gabi Mcelroy RN - 04/17/2025 10:02 AM EDT Wes with [facility] called in and reports they received a referral for SN/PT/OT. She is asking if provider will fallow. Please call back. Gabi Mcelroy RN documented in this encounterC[facility]05-30-2025 Telephone encounter Note * Telephone Encounter - Dillan Santiago MD - 04/17/2025 10:43 AM EDT Will follow Dillan Patel MD [facility]05-30-[facility] Telephone encounter Note* Telephone Encounter - Gabi Mcelroy RN - 04/17/2025 10:02 AM EDT Wes with [facility] called in and reports they received a referral for SN/PT/OT. She is asking if provider will fallow. Please call back. Gabi Mcelroy RN [facility]05-01-2025 Telephone encounter Note* Telephone Encounter - Dillan Santiago MD - 03/19/2025 4:55 PM EDT Thanks and noted Regards, Dillan Santiago MD [facility]05-01-2025 Miscellaneous Notes* Telephone Encounter - Dillan Santiago MD - 03/19/2025 4:55 PM EDT Thanks and noted Dillan Patel MD * Telephone Encounter - Mckenzie Lombardo LPN - 03/19/2025 4:00 PM EDT Canceled appointment for tomorrow per patients daughter request. Mckenzie Lombardo LPN March 19, 2025 4:00 PM * Telephone Encounter - Kentrell Montgomery MSW - 03/19/2025 3:28 PM EDT Thomas spoke with patient daughter Maribeth. Maribeth notes that patient is currently at [facility] right now. Transitioned there today. Maribeth notes that she needs to cancel patient appt with Dr. Santiago tomorrow. Thomas notes that she will send message to Dr. Santiago regarding this need. Maribeth also noted that she is going to send My Chart message as well in regards to cancelling appt. Maribeth notes that the hospital had encouraged patient to go to [facility] for further care after being in [facility]. Daughter is trying to get with admissions at [facility] in regards to them saying that she is going there for 30 days and being placed in LTC and not Rehab. Daughter also notes that she has an appt next week with [facility] for financial planning. Maribeth also noted that she would like patient to see Dr. Santiago if and when she leaves [facility]. While in [facility], patient will be followed by their provider. Thomas did encourage patient daughter to also reach out to [facility] and [facility] for further support guidance regarding LTC planning. Thomas will forward note to Dr. Santiago and her office in regards to appt cancellation need for tomorrow. documented in this encounterC[facility]05-01-2025 Telephone encounter Note * Telephone Encounter - Mckenzie Lombardo LPN - 03/19/2025 4:00 PM EDT Canceled appointment for tomorrow per patients daughter request. Mckenzie Lombardo LPN March 19, 2025 4:00 PM [facility]05-01-[facility]25 Telephone encounter Note* Telephone Encounter - Kentrell Montgomery MSW - 03/19/2025 3:28 PM EDT Thomas spoke with patient daughter Maribeth. Maribeth notes that patient is currently at [facility] right now. Transitioned there today. Maribeth notes that she needs to cancel patient appt with Dr. Santiago tomorrow. Thomas notes that she will send message to Dr. Santiago regarding this need. Maribeth also noted that she is going to send My Chart message as well in regards to cancelling appt. Maribeth notes that the hospital Sw had encouraged patient to go to [facility] for further care after being in [facility]. Daughter is trying to get with admissions at [facility] in regards to them saying that she is going there for 30 days and being placed in LTC and not Rehab. Daughter also notes that she has an appt next week with [facility] for financial planning. Maribeth also noted that she would like patient to see Dr. Santiago if and when she leaves [facility]. While in [facility], patient will be followed by their provider. Thomas did encourage patient daughter to also reach out to [facility] and [facility] for further support guidance regarding LTC planning. Thomas will forward note to Dr. Santiago and her office in regards to appt cancellation need for tomorrow. [facility]04-28-2025 [facility]04-16-[facility] Consult note [facility] Medical Records Department [address] [place] [address] Anesthesia Postop Eval II 03/03/25904 MR#: [id number] Acct: [id number] Name: MICHAELA BRANTD Rep #:[id number] : 1940 84 From: Jim Vidales MD PCP: Dr. Dillan Santiago MD Status:ADM I N Y Race: C Location: [facility] MS322 -1 Anesthesia Postop Eval I Sum Postop Eval Completion status Anesthesia document: Postop Eval 1 completed: Yes Anesthesia Postop Eval I Summary Anesthesia Postop Eval I Summary: Anesthesia Postop Eval I: Assessment Summary Airway patent Yes 03/02/25 13:00 [email or web address] Spontaneous unlabored Yes 03/02/25 13:00 [email or web address] respirations Mental status Asleep 03/02/25 13:00 [email or web address] nausea No 03/02/25 13:00 CAR [email or web address] Vomiting No 03/02/25 13:00 CAR [email or web address] Anesthesia Postop Eval I: Fluid Summary Crystalloid volume administer 600 03/02/25 13:00 CAR [email or web address].JDEF (ml) Colloids volume administered ( ml) Blood Product volume administered (ml) Total IV fluid infused 600 03/02/25 13:00 CAR [email or web address] Anesthesia Postop Eval I: Summary Notes Anesthesia Complication No 03/02/25 13:00 CAR [email or web address] Anesthesia Complication Comment: Post-operative progress note Anesthesia: Postop Eval II Evaluation Mental status: Awake and Calm Pain Level: 2 nausea: No Vomiting: No Complications Anesthesia Complication: No 03/03/25904 javier [email or web address]> Date _ Jim Vidales MD Cosigner Signature: Date CC: ~ Signed [facility]04-16-2025 Discharge summary Author Allison Tran [facility] Note Date/Time March 04, 2025 12: 22pm [facility] Medical Records Department [address] [place] [address] Transfer to [facility] Care MR#: [id number] Acct: [id number] Name: MICHAELA BRANDT Rep #:[id number] : 1940 84 From: Allison Tran MD PCP: Dr. Dillan Santiago MD Status:ADM I N Certification of patient admission REQUIRED AT TIME OF ADMISSION. I CERTIFY THAT POST-HOSPITAL ECF SERVICES ARE REQUIRED TO BE GIVEN ON AN IN-PATIENT BASIS BECAUSE OF THE ABOVE NAMED PATIENT'S NEED FOR CARE HOME CARE ON A CONTINUING BASIS FOR THE [...] in before D/C Order can be placed): [facility] 03/04/25 1222 <Electronically signed by Allison Tran MD> Cosigner Signature (if applicable): CC: Dr. Dillan Santiago MD; Dr. Roro Long DO; Dr. Boston Rosas DO ~ [facility] Work Phone: 1(449) 526-630204-16-2025 Discharge summary [facility] Medical Records Department [address] [place] [address] Transfer to Extended Care MR#: [id number] Acct: [id number] Name: MICHAELA BRANDT Rep #:[id number] : 1940 84 From: Allison Tran MD PCP: Dr. Dillan Santiago MD Status:ADM I N Certification of patient admission REQUIRED AT TIME OF ADMISSION. I CERTIFY THAT POST-HOSPITAL ECF SERVICES ARE REQUIRED TO BE GIVEN ON AN IN-PATIENT BASIS BECAUSE OF THE ABOVE NAMED PATIENT'S NEED FOR CARE HOME CARE ON A CONTINUING BASIS FOR THE [...] in before D/C Order can be placed): [facility] 03/04/25 1222 Cosigner Signature (if applicable): CC: Dr. Dillan Santiago MD; Dr. Roro Long DO; Dr. Boston oRsas DO ~ [facility]04-16-2025 [facility]04-[facility] Progress note Author Josy Parks [facility] Note Date/Time March 03, 2025 5:1 6pm [facility] Medical Records Department [address] [place] [address] Progress Note - Orthopedic 03/03/25 1316 MR#: [id number] Acct: [id number] Name: MICHAELA BRANDT Rep #:[id number] : 1940 84 From: Josy HOUSE PCP: Dr. Dillan Santiago MD Status:ADM I N Location: MS3 ZR188-3 Subjective Subjective Patient is lying comfortably in [...] 74.6 H, Lymph % (Auto) 12.6 L, [place] % (Auto) 9.6, Eos % (Auto) 1.9, [...] evidence of fracture or loosening. Reading Location: [id number] Physical Exam Narrative 1. MEJIA hose in [...] days to call our office. 4. H&H: .5. At this time patient is asymptomatic and [...] orthopedic with any concerns or questions 03/03/25 1716 <Electronically signed by Josy HOUSE> Cosigner Signature (if applicable): CC: ~ Signed [facility] Work Phone: 1(520) 563-724804-15-2025 Progress note [facility] Medical Records Department [address] [place] [address] Progress Note - Orthopedic 03/03/25 1316 MR#: [id number] Acct: [id number] Name: MICHAELA BRANDT Rep #:[id number] : 1940 84 From: Josy HOUSE PCP: Dr. Dillan Santiago MD Status:ADM I N Location: [place] [address] Subjective Subjective Patient is lying comfortably in [...] 74.6 H, Lymph % (Auto) 12.6 L, [place] % (Auto) 9.6, Eos % (Auto) 1.9, [...] evidence of fracture or loosening. Reading Location: [id number] Physical Exam Narrative 1. MEJIA hose in [...] days to call our office. 4. H&H: 8.7/25.5. At this time patient is asymptomatic and [...] orthopedic with any concerns or questions 03/03/25 1716 Cosigner Signature (if applicable): CC: ~ Signed [facility]04-15-2025 Progress note Author Allison Cox Monetttami [facility] Note Date/Time March 03, 2025 3:[address] [place] [address] Health System Medical Records Department [address] [place] [address] Progress Note 03/03/25 1459 MR#: [id number] Acct: [id number] Name: MICHAELA BRANDT Rep #:[id number] : 1940 84 From: Allison Tran MD PCP: Dr. Dillan Santiago MD Status:ADM I N Location: [place] [address] Subjective Subjective Patient seen and examined. Her [...] 74.6 H, Lymph % (Auto) 12.6 L, [place] % (Auto) 9.6, Eos % (Auto) 1.9, [...] of fracture or loosening. Reading Location: [facility] Physical Exam Const alert, oriented x3, [...] precert. * Charges/Coding Visit Charges Inpatient E&M: 92395 Subs Hosp L2 03/03/25 1511 <Electronically signed by Allison Tran MD> Allison Tran MD Cosigner Signature (if applicable): CC: ~ Signed [facility] Work Phone: 1(181) 262-643504-15-2025 Progress note [facility] Medical Records Department [address] [place] [address] Progress Note 03/03/25 1459 MR#: [id number] Acct: [id number] Name: MICHAELA BRANDT Rep #:[id number] : 1940 84 From: Allison Tran MD PCP: Dr. Dillan Santiago MD Status:ADM I N Location: [place] 302672-1 Subjective Subjective Patient seen and examined. Her [...] 74.6 H, Lymph % (Auto) 12.6 L, [place] % (Auto) 9.6, Eos % (Auto) 1.9, [...] evidence of fracture or loosening. Reading Location: [id number] Physical Exam Const alert, oriented x3, no [...] precert. * Charges/Coding Visit Charges Inpatient E&M: 81007 Subs Hosp L2 03/03/25 6533 Allison Tran MD Cosigner Signature (if applicable): CC: ~ Signed [facility]04-15-2025 Consult note Author [facility] Note Date/Time March 04, 2025 2:5 7pm [facility] Medical Records Department [address] [place] [address] Anesthesia Postop Eval II 03/03/25904 MR#: [id number] Acct: [id number] Name: MICHAELA BRANDT Rep #:[id number] : 1940 84 From: Jim Vidales MD PCP: Dr. Dillan Santiago MD Status:ADM I N Y Race: C Location[place] [facility] MS322 -1 Anesthesia Postop Eval I Sum Postop Eval Completion status Anesthesia document: Postop Eval 1 completed: Yes Anesthesia Postop Eval I Summary Anesthesia Postop Eval I Summary: Anesthesia Postop Eval I: Assessment Summary Airway patent Yes 03/02/25 13:00 [email or web address] Spontaneous unlabored Yes 03/02/25 13:00 [email or web address] respirations Mental status Asleep 03/02/25 13:00 [email or web address] nausea No 03/02/25 13:00 CAR [email or web address] Vomiting No 03/02/25 13:00 CAR [email or web address] Anesthesia Postop Eval I: Fluid Summary Crystalloid volume administer 600 03/02/25 13:00 CAR [email or web address].JDEF (ml) Colloids volume administered ( ml) Blood Product volume administered (ml) Total IV fluid infused 600 03/02/25 13:00 CAR [email or web address] Anesthesia Postop Eval I: Summary Notes Anesthesia Complication No 03/02/25 13:00 CAR [email or web address] Anesthesia Complication Comment: Post-operative progress note Anesthesia: Postop Eval II Evaluation Mental status: Awake and Calm Pain Level: 2 nausea: No Vomiting: No Complications Anesthesia Complication: No 03/03/25904 <Electronically signed by Jim herrera MD> Date _ Jim Vidales MD Cosigner Signature: Date CC: ~ Signed [facility] Work Phone: 1(311) 240-632104-14-2025 Progress note Author Allison Henrytami [facility] Note Date/Time March 02, 2025 3:5 0pm [facility] Medical Records Department [address] [place] [address] Progress Note 03/02/25 1133 MR#: [id number] Acct: [id number] Name: MICHAELA BRANDT Rep #:[id number] : 1940 84 From: Allison Tran MD PCP: Dr. Dillan Santiago MD Status:ADM I N Location: [place] [address] Subjective Subjective Patient seen and examined. Her [...] 92.1 H, Lymph % (Auto) 3.3 L, [place] % (Auto) 3.8, Eos % (Auto) 0.0, [...] (Auto) 76.7 H, Lymph % (Auto) 11.6L, [place] % (Auto) 9.5, Eos % (Auto) 0.9, [...] fracture of the left femur. Reading Location: [facility] Knee X-Ray 03/01/25 11:41 IMPRESSION: Acute fracture of the left lateral femoral condyle. Reading Location: [facility] Brain CT 03/01/25 12:42 IMPRESSION: 1. No acute intracranial finding. 2. Findings of chronic microvascular ischemic changes and age-related changes. Reading Location: [facility] Lower Extremity CT 03/01/25 12:42 IMPRESSION: No acute osseous fracture. The previously visualized osseous fragment along the distal lateral left femoral condyle is secondary to diffuse bone lucency and probable nutrient channel. Reading Location: [facility] Chest X-Ray 03/01/25 13:59 IMPRESSION: Emphysema/fibrosis. No acute findings. Reading Location: [facility] Physical Exam Const alert, oriented x3, [...] intubation * Charges/Coding Visit Charges Inpatient E&M: 88328 Subs Hosp L2 03/02/25 1550 <Electronically signed by Allison Tran MD> Allison Tran MD Cosigner Signature (if applicable): CC: ~ Signed [facility] Work Phone: 1(130) 172-500404-14-2025 Progress note [facility] Medical Records Department [address] [place] [address] Progress Note 03/02/25 1133 MR#: [id number] Acct: [id number] Name: MICHAELA BRANDT Rep #:[id number] : 1940 84 From: Allison Tran MD PCP: Dr. Dillan Santiago MD Status:ADM I N Location: [place] [address] Subjective Subjective Patient seen and examined. Her [...] 03/02/25 11:09 03/02/25 11:09 03/02/25 11:09 03/02/25 11:03/02/25 07:36 Oxygen Delivery Method Room Air Weight: [...] 92.1 H, Lymph % (Auto) 3.3 L, [place] % (Auto) 3.8, Eos % (Auto) 0.0, [...] (Auto) 76.7 H, Lymph % (Auto) 11.6L, [place] % (Auto) 9.5, Eos % (Auto) 0.9, [...] fracture of the left femur. Reading Location: [facility] Knee X-Ray 03/01/25 11:41 IMPRESSION: Acute fracture of the left lateral femoral condyle. Reading Location: [facility] Brain CT 03/01/25 12:42 IMPRESSION: 1. No acute intracranial finding. 2. Findings of chronic microvascular ischemic changes and age-related changes. Reading Location: [facility] Lower Extremity CT 03/01/25 12:42 IMPRESSION: No acute osseous fracture. The previously visualized osseous fragment along the distal lateral leftfemoral condyle is secondary to diffuse bone lucency and probable nutrient channel. Reading Location: [facility] Chest X-Ray 03/01/25 13:59 IMPRESSION: Emphysema/fibrosis. No acute findings. Reading Location: [facility] Physical Exam Const alert, oriented x3, [...] intubation * Charges/Coding Visit Charges Inpatient E&M: 29379 Subs Hosp L2 03/02/25 1550 Allison Tran MD Cosigner Signature (if applicable): CC: ~ Signed [facility]04-14-2025 Radiology Diagnostic study note [facility] Imaging Services [address] [place] [address] Hip Min 2 Views (Portable) MR#: [id number] Acct: [id number] Name: MICHAELA BRANDT Rep #: [id number] : 1940 F 84 From: Jose Gayle DO PCP: Dr. Dillan Santiago MD Status: ADM I N Study:Hip Min 2 Views (Portable) Date of Exam : 03/02/25 Exam# [id number] Ordering Dr: James Overton MD PROCEDURE: HIP [...] evidence of fracture or loosening. Reading Location: [facility] CC: Dr. Dillan Santiago MD; Dr. Elijah Overton MD ~ Welding Setter: Signed [facility]04-14-2025 Consult note Author Joanna Delgado [facility] Note Date/Time March 02, 2025 1:0 0pm [facility] Medical Records Department [address] [place] [address] Anesthesia Postop Eval I 03/02/25 1259 MR#: [id number] Acct: [id number] Name: MICHAELA BRANDT Rep #:[id number] : 1940 84 From: Joanna Delgado CRNA PCP: Dr. Dillan Santiago MD Status:ADM I N Y Race: C Location: [place] [address] Anesthesia: Postop Eval I Current Vital Signs [...] 03/02/25 1300 <Electronically signed by Joanna chowdary CAR MECHANIC> Date _ Joanna Delgado CAR MECHANIC Cosigner Signature: Date CC: ~ Signed [facility] Work Phone: 1(464) 876-914704-14-2025 Consult note Author Sae Sesay [facility] Note Date/Time March 02, 2025 11: 09am [facility] Medical Records Department [address] [place] [address] Pre-Anesthesia Evaluation 03/02/25 1109 MR#: [id number] Acct: [id number] Name: MICHAELA BRANDT Rep #:[id number] : 1940 84 From: Sae Sesay MD PCP: Dr. 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: Anesthesia History - data center operator Hx Hospitalization Any Problems With Anesthesia No [...] take am of surgery PONV PONV - data center operator: PONV - data center operator Female HX of Motion Sickness HX of N/V After Surgery Non-Smoker Duration of Surgery greater than 60 minutes Number of Risk Factors PONV Score Height & Weight Height & Weight: Anesthesia: Height & Weight Height 5 ft 03/01/25 15:09 Weight: 57.7 kg 03/02/25 06:00 Body Mass Index (BMI) 25.0 03/02/25 06:00 Respiratory Assessment Respiratory Assessment - data center operator: Respiratory Tract Infection Hx - data center operator Hx Respiratory Tract Infection No 03/01/25 22:27 STOP Sleep Apnea STOP Sleep 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: STOP Sleep 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 Hx Hypertension No 03/02/25 09:43 Hx Sleep [...] Tobacco Use History Tobacco Use History - data center operator: Tobacco Use History - data center operator Tobacco Use Smoking Status Never smoker 03/01/25 16:34 Hx Tobacco Use No 03/01/25 15:09 Years Smoking Packs Smoked per Day Smoking Cessation Date was within the last 15 years Hx Smoking Cessation Date Hx Smoking Cessation Counseling Hematologic Medial History Hematologic Hx - data center operator: Hematologic Medical Hx - documentation designer Hx of Blood Transfusion No 03/01/25 15:09 [...] confused, unrespo /Reproduction History /Reproductive History - data center operator: /Reproductive Hx- data center operator Hx Now No 03/01/25 22:27 Gestational Age [...] 03/02/25 10:49 IV 03/02/25 18:19 0 mls/hr .[id number] GRAY Infusion Sodium Chloride 100 mls @ [...] Bottle TOPICAL Not Given BID [facility] Protocol Ondansetron HCl 4 mg [...] MD Cosigner Signature: Date CC: ~ Signed [facility] Work Phone: 1(718) 459-771104-14-2025 Consult note Author Elijah Overton [facility] Note Date/Time March 02, 2025 11: 05am [facility] Medical Records Department [address] [place] [address] Consultation - Orthopedics 03/02/25 1100 MR#: [id number] Acct: [id number] Name: MICHAELA BRANDT Rep #:[id number] : 1940 84 From: Elijah Laws PCP: Dr. Dillan Santiago MD Status:ADM I N Location: [place] [address] HPI Consult Data Date of Consult: 03/02/25 HPI Narrative Reason for Consultation: Left hip pain HPI Narrative: MICHAELA ARYAJUAN, is a 84 F who presents with left hip pain. Patient's daughter isat bedside and is her medical power of workers compensation defense attorney. Patient does have memory issues and [...] and was the primary provider of information. [facility] Medical History Hypothyroidism Anxiety Dementia Self-catheterizes urinary [...] 92.1 H, Lymph % (Auto) 3.3 L, [place] % (Auto) 3.8, Eos % (Auto) 0.0, [...] (Auto) 76.7 H, Lymph % (Auto) 11.6L, [place] % (Auto) 9.5, Eos % (Auto) 0.9, [...] fracture of the left femur. Reading Location: [facility] Knee X-Ray 03/01/25 11:41 IMPRESSION: Acute fracture of the left lateral femoral condyle. Reading Location: [facility] Brain CT 03/01/25 12:42 IMPRESSION: 1. No acute intracranial finding. 2. Findings of chronic microvascular ischemic changes and age-related changes. Reading Location: [facility] Lower Extremity CT 03/01/25 12:42 IMPRESSION: No acute osseous fracture. The previously visualized osseous fragment along the distal lateral left femoral condyle is secondary to diffuse bone lucency and probable nutrient channel. Reading Location: [facility] Chest X-Ray 03/01/25 13:59 IMPRESSION: Emphysema/fibrosis. No acute findings. Reading Location: [facility] Assessment & Plan Assessment/Plan (1) Closed intertrochanteric fracture of left hip: PLAN: Natural history of the disease process was discussed with patient and her family member at bedside. Potential treatment options were discussed and cephalomedullary nail was recommended as appropriate treatment plan. Risk and benefits of the procedure were discussed the patient and her medical power of workers compensation defense attorney occluding but not limited to blood [...] applicable): CC: Dr. Dillan Santiago MD~ Signed [facility] Work Phone: 1(428) 459-693004-14-2025 Consult note [facility] Medical Records Department [address] [place] [address] Anesthesia Postop Eval I 03/02/25 1259 MR#: [id number] Acct: [id number] Name: MICHAELA BRANDT Rep #:[id number] : 1940 84 From: Joanna Delgado CAR MECHANIC PCP: Dr. Dillan Santiago MD Status:ADM I N Y Race: C Location: [place] [id number] -1 Anesthesia: Postop Eval I Current Vital [...] Eval 1 completed: Yes 03/02/[address] CAR MECHANIC> Date _ Joanna Delgado LUCRECIA Salmeronigner Signature: Date CC: ~ Signed [facility]04-14-2025 Procedure note [facility] Medical Records Department [address] [place] [address] Operative Report 03/02/25 1100 MR#: [id number] Acct: [id number] Name: MICHAELA BRANDT Rep #:[id number] : 1940 84 From: Elijah Laws PCP: Dr. Dillan Santiago MD Status:ADM I N Location: [place] [address] Operative Report (Standard) Operative Information Date of Procedure: 03/02/25 Pre-Operative Diagnosis: Left intertrochanteric hip fracture Post-Operative Diagnosis: Left intertrochanteric hip fracture Surgery/Procedure Performed: Left hip cephalomedullary nail tongue binder: No Type of Anesthesia: General RN Documented [...] verify theplacement of the nail and a Dale short gamma 3 by 11 mm 125 degree hip nail was selected. The 12.5 mm reamer was then passed. The nail was then attached to the graduate teacher education and inserted into the intramedullary canal. The [...] Hose VTE Pharm Prophylaxis ordered?: Yes 03/02/25 1258 Cosigner Signature (if applicable): CC: Dr. Dillan Santiago MD; Dr. Roro Long DO; Dr. Boston Rosas DO; Dr. Elijah Overton MD~ Signed [facility]04-14-2025 Radiology Diagnostic study note [facility] Imaging Services [address] [place] [address] Hip Min 2 Views (Portable) MR#: [id number] Acct: [id number] Name: MICHAELA BRANDT Rep #: [id number] : 1940 F 84 From: Tanner Beth MD PCP: Dr. Dillan Santiago MD Status: ADM I N Study:Hip Min 2 Views (Portable) Date of Exam : 03/02/25 Exam# [id number] Ordering Dr: James Overton MD PROCEDURE: Intraoperative [...] of the left intertrochanteric fracture. Reading Location: [place] [address] CC: Dr. Dillan Santiago MD; Dr. Elijah Overton MD ~ Welding Setter: Signed [facility]04-14-2025 Consult note [facility] Medical Records Department [address] [place] [address] Pre-Anesthesia Evaluation 03/02/25 1109 MR#: [id number] Acct: [id number] Name: MICHAELA BRANDT Rep #:[id number] : 1940 84 From: Sae Sesay MD PCP: Dr. Dillan Santiago MD Status:ADM I N Y Race: C Location: [place] [address] ASA Classification* ASA Classification ASA Classification: 2 [...] 05:20 03/02/25 TSH 1.470 uIU/mL (0.300-4.200) 03/02/25 05:02/17 COAG PT 14.9 SECONDS (11.7-14.9) 03/01/25 12:15 Pre-Assessment Diagnosis/Proposed Procedure Planned Operative Procedure(s): ORIF Gamma nail left hip Anesthesia History Anesthesia History - data center operator: Anesthesia History - data center operator Hx Hospitalization Any Problems With Anesthesia No [...] take am of surgery PONV PONV - data center operator: PONV - data center operator Female HX of Motion Sickness HX of N/V After Surgery Non-Smoker Duration of Surgery greater than 60 minutes Number of Risk Factors PONV Score Height & Weight Height & Weight: Anesthesia: Height & Weight Height 5 ft 03/01/25 15:09 Weight: 57.7 kg 03/02/25 06:00 Body Mass Index (BMI) 25.0 03/02/25 06:00 Respiratory Assessment Respiratory Assessment - data center operator: Respiratory Tract Infection Hx - data center operator Hx Respiratory Tract Infection No 03/01/25 22:27 STOP Sleep Apnea STOP Sleep 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: STOP Sleep 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 Hx Hypertension No 03/02/25 09:43 Hx Sleep [...] Tobacco Use History Tobacco Use History - data center operator: Tobacco Use History - data center operator Tobacco Use Smoking Status Never smoker 03/01/25 16:34 Hx Tobacco Use No 03/01/25 15:09 Years Smoking Packs Smoked per Day Smoking Cessation Date was within the last 15 years Hx Smoking Cessation Date Hx Smoking Cessation Counseling Hematologic Medial History Hematologic Hx - data center operator: Hematologic Medical Hx - documentation designer Hx of Blood Transfusion No 03/01/25 15:09 [...] confused, unrespo /Reproduction History /Reproductive History - data center operator: /Reproductive Hx- data center operator Hx Now No 03/01/25 22:27 Gestational Age [...] 03/02/25 10:49 IV 03/02/25 18:19 0 mls/hr .[id number] GRAY Infusion Sodium Chloride 100 mls @ [...] Bottle TOPICAL Not Given BID [facility] Protocol Ondansetron HCl 4 mg [...] Tablet PO 2 tablet BID [facility] Administration Sodium Chloride 10 - 40 ml 03/01/25 15:09 03/02/25 07:46 0.9% Saline Lock 10 Ml Syringe IV 10 ml UD PRN Administration SALINE FLUSH Trazodone HCl 50 mg 03/01/25 22:00 03/01/25 21:12 Trazodone 50 Mg Tablet PO Not Given [facility] History Hypothyroidism Anxiety Dementia Self-catheterizes urinary [...] MD Cosigner Signature: Date CC: ~ Signed [facility]04-14-2025 Consult note [facility] Medical Records Department [address] [place] [address] Consultation - Orthopedics 03/02/25 1100 MR#: [id number] Acct: [id number] Name: MICHAELA BRANDT Rep #:[id number] : 1940 84 From: Elijah Laws PCP: Dr. Dillan Santiago MD Status:ADM I N Location: [place] [address] HPI Consult Data Date of Consult: 03/02/25 HPI Narrative Reason for Consultation: Left hip pain HPI Narrative: MICHAELA BRANDT, is a 84 F who presents with left hip pain. Patient's daughter isat bedside and is her medical power of workers compensation defense attorney. Patient does have memory issues and [...] and was the primary provider of information. [facility] Medical History Hypothyroidism Anxiety Dementia Self-catheterizes urinary [...] 92.1 H, Lymph % (Auto) 3.3 L, [place] % (Auto) 3.8, Eos % (Auto) 0.0, [...] (Auto) 76.7 H, Lymph % (Auto) 11.6L, [place] % (Auto) 9.5, Eos % (Auto) 0.9, [...] fracture of the left femur. Reading Location: [facility] Knee X-Ray 03/01/25 11:41 IMPRESSION: Acute fracture of the left lateral femoral condyle. Reading Location: [facility] Brain CT 03/01/25 12:42 IMPRESSION: 1. No acute intracranial finding. 2. Findings of chronic microvascular ischemic changes and age-related changes. Reading Location: [facility] Lower Extremity CT 03/01/25 12:42 IMPRESSION: No acute osseous fracture. The previously visualized osseous fragment along the distal lateral leftfemoral condyle is secondary to diffuse bone lucency and probable nutrient channel. Reading Location: [facility] Chest X-Ray 03/01/25 13:59 IMPRESSION: Emphysema/fibrosis. No acute findings. Reading Location: [facility] Assessment & Plan Assessment/Plan (1) Closed intertrochanteric fracture of left hip: PLAN: Natural history of the disease process was discussed with patient and her family member at bedside. Potential treatment options were discussed and cephalomedullary nail was recommended as appropriate treatment plan. Risk and benefits of the procedure were discussed the patient and her medicalpower of workers compensation defense attorney occluding but not limited to blood [...] applicable): CC: Dr. Dillan Santiago MD~ Signed [facility]04-14-2025 Discharge summary Author Guerrero Valerio [facility] Note Date/Time March 01, 2025 10: 59pm [facility] Medical Records Department [address] [address] Emergency Department Summary 03/01/25 MR#: [id number] Acct: [id number] Name: MICHAELA BRANDT Rep #:[id number] : 1940 84 From: Guerrero Sommer PCP: Dr. Dillan Santiago MD Status:ADM I N Location: [place] [address] HPI HPI - Fall History of Present [...] not. That was apparently in 2014 in [facility]. Patient reportedly just moved to the area. She denies any other injuries. She states that she cannot really move the knee. Patient is very tearful upset about bothering her children and over her late . There is a report of the degree of dementia that is reported to me. [facility] Medical History (Updated 03/01/25 @ 13:47 by [...] 92.1 H Lymph % (Auto) 3.3 L [place] % (Auto) 3.8 Eos % (Auto) 0.0 [...] fracture of the left femur. Reading Location: [facility] Knee X-Ray 03/01/25 11:41 IMPRESSION: Acute fracture of the left lateral femoral condyle. Reading Location: [facility] Brain CT 03/01/25 12:42 IMPRESSION: 1. No acute intracranial finding. 2. Findings of chronic microvascular ischemic changes and age-related changes. Reading Location: [facility] Lower Extremity CT 03/01/25 12:42 IMPRESSION: No acute osseous fracture. The previously visualized osseous fragment along the distal lateral left femoral condyle is secondary to diffuse bone lucency and probable nutrient channel. Reading Location: [facility] EKG Initial EKG: Attestation: I personally reviewed and interpreted this EKG as follows: Comments: Sinus rhythm ventricular rate 65 bpm Management Discussion w/another healthcare provider: Hospitalist, Filter Tank Operator (Dr Rosas) and nursing support worker/Case management Discharge Plan Dx/Rx/DC Orders Clinical Impression: Fall, Closed intertrochanteric fracture of left hip, Acute pain of left knee Disposition Disposition: [facility] What to do if you have Problems For any increased pain, shortness of breath, bleeding, nausea or vomiting, chestpain, or any unexpected problems, contact your Primary Care Provider. Call [facility] ([phone]) or report to the closest Emergency Room. Call 911 if necessary. 03/01/25 6786 <Electronically signed by Guerrero Valerio DO> Cosigner Signature (if applicable): CC: Dr. Dillan Santiago MD ~ Signed [facility] Work Phone: 1(136) 543-255104-13-2025 Discharge summary [facility] Medical Records Department [address] [place] [address] Emergency Department Summary 03/01/25 MR#: [id number] Acct: [id number] Name: MICHAELA BRANDT Rep #:[id number] : 1940 84 From: Guerrero Sommer PCP: Dr. Dillan Santiago MD Status:ADM I N Location: [place] [id number] HPI HPI - Fall History of Present [...] not. That was apparently in 2014 in [facility]. Patient reportedly just moved to the area. She denies any other injuries. She states that she cannot really move the knee. Patient is very tearful upset about bothering her children and over her late . There is a report of the degree of dementia that is reported to me. [facility] Medical History (Updated 03/01/25 @ 13:47 by [...] 92.1 H Lymph % (Auto) 3.3 L [place] % (Auto) 3.8 Eos % (Auto) 0.0 [...] fracture of the left femur. Reading Location: [facility] Knee X-Ray 03/01/25 11:41 IMPRESSION: Acute fracture of the left lateral femoral condyle. Reading Location: [facility] Brain CT 03/01/25 12:42 IMPRESSION: 1. No acute intracranial finding. 2. Findings of chronic microvascular ischemic changes and age-related changes. Reading Location: [facility] Lower Extremity CT 03/01/25 12:42 IMPRESSION: No acute osseous fracture. The previously visualized osseous fragment along the distal lateral leftfemoral condyle is secondary to diffuse bone lucency and probable nutrient channel. Reading Location: [facility] EKG Initial EKG: Attestation: I personally reviewed and interpreted this EKG as follows: Comments: Sinus rhythm ventricular rate 65 bpm Management Discussion w/another healthcare provider: Hospitalist, Filter Tank Operator (Dr Rosas) and nursing support worker/Case management Discharge Plan Dx/Rx/DC Orders Clinical Impression: Fall, Closed intertrochanteric fracture of left hip, Acute pain of left knee Disposition Disposition: Acute Care [facility] What to do if you have Problems For any increased pain, shortness of breath, bleeding, nausea or vomiting, chestpain, or any unexpected problems, contact your Primary Care Provider. Call [facility] ([phone]) or report tothe closest Emergency Room. Call 911 if necessary. 03/01/25 9020 Cosigner Signature (if applicable): CC: Dr. Dillan Santiago MD ~ Signed [facility]04-13-2025 History and physical note Author Roro Long [facility] Note Date/Time March 01, 2025 4:3 7pm [facility] Medical Records Department [address] [place] [address] H&P Exam - Hospitalist 03/01/25 1345 MR#: [id number] Acct: [id number] Name: MICHAELA BRANDT Rep #:[id number] : 1940 84 From: Roro Long DO PCP: Dr. Dillan Snatiago MD Status:ADM I N Location: [place] [address] HPI - General General Date of Admission: 03/01/25 Date of Service: 03/01/25 Chief Complaint: L hip pain after mechanical fall HPI Narrative MICHAELA BRANDT, is a 84 F who presented to the emergency department at [facility] on 03/01/2025 with a chief complaint [...] admitted with an expected 2 midnight stay. [facility] Medical History Hypothyroidism Anxiety Dementia Self-catheterizes urinary [...] 92.1 H, Lymph % (Auto) 3.3 L, [place] % (Auto) 3.8, Eos % (Auto) 0.0, [...] fracture of the left femur. Reading Location: [facility] Knee X-Ray 03/01/25 11:41 IMPRESSION: Acute fracture of the left lateral femoral condyle. Reading Location: [facility] Brain CT 03/01/25 12:42 IMPRESSION: 1. No acute intracranial finding. 2. Findings of chronic microvascular ischemic changes and age-related changes. Reading Location: [facility] Lower Extremity CT 03/01/25 12:42 IMPRESSION: No acute osseous fracture. The previously visualized osseous fragment along the distal lateral left femoral condyle is secondary to diffuse bone lucency and probable nutrient channel. Reading Location: [facility] Assessment & Plan Assessment/Plan (1) Closed [...] code temporarily. Charges/Coding Visit Charges Inpatient E&M: 19858 Init Hosp L2 03/01/25 1637 <Electronically signed by Roro Long DO> Cosigner Signature (if applicable): CC: Dr. Dillan Santiago MD; Dr. Roro Long DO~ Signed [facility] Work Phone: 1(283) 780-173704-13-2025 History and physical note [facility] Medical Records Department [address] [place] [address] H&P Exam - Hospitalist 03/01/25 1345 MR#: [id number] Acct: [id number] Name: MICHAELA BRANDT Rep #:[id number] : 1940 84 From: Roro Long DO PCP: Dr. Dillan Santiago MD Status:ADM I N [facility] - General General Date of Admission: 03/01/25 Date of Service: 03/01/25 Chief Complaint: L hip pain after mechanical fall HPI Narrative MICHAELA BRANDT, is a 84 F who presented to the emergency department at [facility] on03/01/2025 with a chief complaint of [...] admitted with an expected 2 midnight stay. [facility] Medical History Hypothyroidism Anxiety Dementia Self-catheterizes urinary [...] 99 99 Oxygen Delivery Method Room Air 04/13/25 13:19 Temperature Temperature Source Pulse Rate 60 [...] 92.1 H, Lymph % (Auto) 3.3 L, [place] % (Auto) 3.8, Eos % (Auto) 0.0, [...] fracture of the left femur. Reading [facility] [facility]PITAL Knee X-Ray 03/01/25 11:41 IMPRESSION: Acute fracture of the left lateral femoral condyle. Reading Location: [facility] Brain CT 03/01/25 12:42 IMPRESSION: 1. No acute intracranial finding. 2. Findings of chronic microvascular ischemic changes and age-related changes. Reading Location: [facility] Lower Extremity CT 03/01/25 12:42 IMPRESSION: No acute osseous fracture. The previously visualized osseous fragment along the distal lateral leftfemoral condyle is secondary to diffuse bone lucency and probable nutrient channel. Reading Location: [facility] Assessment & Plan Assessment/Plan (1) Closed [...] code temporarily. Charges/Coding Visit Charges Inpatient E&M: 00010 Init Hosp L2 03/01/25 0191 Cosigner Signature (if applicable): CC: Dr. Dillan Satniago MD; Dr. Roro Long, DO~ Signed [facility]04-13-2025 Evaluation note* Diagnosis Onset Date Resolution Status Admit Date Acute pain of left knee acute A pril 2024 1:47pm Closed intertrochanteric fra cture of left hip acute March 01, 2025 1:47pm Fall acute March 01 1:47pm [facility] Work Phone: 1(339) 561-591004-13-2025 Evaluation note* Diagnosis Onset Date Resolution Status [...] 2025 3:04pm Fall inactive March 04 3:04pm [facility] Work Phone: 1(936) 917-673104-13-2025 Evaluation note* Diagnosis Onset Date Resolution Status [...] 2025 3:04pm Fall inactive March 04 3:04pm Abnormal finding on urinalysis acute June 20, 2025 2:26pm Fall acute June 20 2:26pm Generalized weakness acute Augu 2024 2:26pm Self-catheterizes urinary bladder ac mentasta June 20, 2025 2:26pm [facility] Work Phone: 1(492) 608-965604-13-2025 Radiology Diagnostic study note [facility] Imaging Services [address] [place] [address] Chest 1 View (Portable) MR#: [id number] Acct: [id number] Name: MICHAELA BRANDT Rep #: [id number] : 1940 F 84 From: Jo Rabago MD PCP: Dr. Dillan Santiago MD Status: ADM I N Study:Chest 1 View (Portable) Date of Exam: 03/01/25 Exam# [id number] Ordering Dr: Cassy Long DO PROCEDURE: CHEST [...] IMPRESSION: Emphysema/fibrosis. No acute findings. Reading Location: [facility] CC: Dr. Dillan Santiago MD; Dr. Roro Long DO ~ Welding Setter: Signed [facility]04-13-2025 Radiology Diagnostic study note [facility] Imaging Services [address] [place], [place] [id number] Knee 1 or 2 Views MR#: [id number] Acct: [id number] Name: MICHAELA BRANDT Rep #: [id number] : 1940 F 84 From: Jo Rabago MD PCP: Dr. Dillan Santiago MD Status: REG E R Study:Knee 1 or 2 Views Date of Exam: Exam# [id number] Ordering Dr: Veto Valerio DO ADDENDUM by Dr. Janet Rabago MD on 03/01/25 at 1310 No acute osseous fracture seen on same day CT of the left knee. The previously visualized osseous fragment along the distal lateral left femoral condyle is secondary to diffuse bone lucency and probable nutrient channel. Reading Location: [facility] 03/01/25 1311 Date cc: Dr. Dillan [...] the left lateral femoral condyle. Reading Location: [facility] CC: Dr. Dillan Santiago MD; Dr. Guerrero Valerio DO ~ Welding Setter: Signed [facility]04-13-2025 Radiology Diagnostic study note [facility] Imaging Services [address] [place], [place] [id number] Extremity Lower without Contra MR#: [id number] Acct: [id number] Name: MICHAELA BRANDT Rep #: [id number] : 1940 F 84 From: Jo Rabago MD PCP: Dr. Dillan Santiago MD Status: REG E R Study:Extremity Lower without Contra Date of Exam: 03/01/25 Exam# [id number] Ordering Dr: Veto Valerio DO PROCEDURE: EXTREMITY [...] lucency and probable nutrient channel. Reading Location: [facility] CC: Dr. Dillan Santiago MD; Dr. Guerrero [place], DO ~ Welding Setter: Signed [facility]04-13-2025 Radiology Diagnostic study note [facility] Imaging Services [address] [place] [id number] Brain/Head without Contrast MR#: [id number] Acct: [id number] Name: MICHAELA BRANDT Rep #: [id number] : 1940 F 84 From: Jo Rabago MD PCP: Dr. Dillan Santiago MD Status: REG E R Study:Brain/Head without Contrast Date of Exa m: 03/01/25 Exam# [id number] Ordering Dr: Veto Valerio DO EXAM: BRAIN/HEAD [...] ischemic changes and age-related changes. Reading Location: [facility] CC: Dr. Dillan Santiago MD; Dr. Guerrero Valerio DO ~ Welding Setter: Signed [facility]04-13-2025 Radiology Diagnostic study note [facility] Imaging Services [address] [place] [address] HIP, UNI W/ Pelvis 2-3 Views MR#: [id number] Acct: [id number] Name: MICHAELA BRANDT Rep #: [id number] : 1940 F 84 From: Jo Rabago MD PCP: Dr. Dillan Santiago MD Status: REG E R Study:HIP, UNI W/ Pelvis 2-3 Views Date of Ex am: 03/01/25 Exam# [id number] Ordering Dr: Veto Valerio DO PROCEDURE: HIP, [...] fracture of the left femur. Reading Location: [id number] CC: Dr. Dillan Santiago MD; Dr. Guerrero Valerio DO ~ Welding Setter: Signed [facility]04-11-2025 Telephone encounter Note* Telephone Encounter - Kentrell Montgomery MSW - 02/27/2025 2:48 PM EDT Thomas spoke with patient daughter Maribeth. Maribeth noted that her mother is currently living on [address] [place] is concerned about mother living by herself. There are cameras set up in apt to keep watch on patient in case of falls. Discussed different social service agencies and services they offer ie. [employer] and [employer]. Sw provided patient daughter with Lala Huntley phone number for help with looking at memory care options in the area. Sw and daughter also discussed different local memory care options ie. [facility], [facility], [facility], [facility]. Maribeth notes that her mom was not interested in any place that "looks like a usp." Discussed the different options above and layout and levels of care they offer. Maribeth notes that she is going to give Yuko a call from [employer] to see about her assistance as a snf advisor looking at level of care memory care options for patient. Maribeth has this direct number for further assistance. [facility]04-11-2025 Miscellaneous Notes* Telephone Encounter - Kentrell Montgomery MSW - 02/27/2025 2:48 PM EDT Thomas spoke with patient daughter Maribeth. Maribeth noted that her mother is currently living [address] is concerned about mother living by [...] discussed different local memory care options ie. [facility], [facility], [facility], [facility]. Maribeth notes that her mom was not interested in any place that "looks like a usp." Discussed the different options above and layout and levels of care they offer. Maribeth notes that she is going to give Yuko a call from [facility] to see about her assistance as a snf advisor looking at level of care memory care options for patient. Maribeth has this Thomas direct number for further assistance. * Telephone Encounter - Kentrell Montgomery MSW - 02/27/2025 2:26 PM EDT Thomas left message for patient requesting call back to discuss patient home care resource needs. documented in this encounterC[facility]04-[facility] Telephone encounter Note * Telephone Encounter - Kentrell Montgomery MSW - 02/27/2025 2:26 PM EDT Thomas left message for patient requesting call back to discuss patient home care resource needs. [facility]04-09-2025 Telephone encounter Note* Telephone Encounter - Mariposa Márquez APRN.CNP - 02/25/2025 8:56 AM EDT [facility] All prescriptions have been APPROPRIATELY filled. No suspiciousactivity was identified. 02/25/2025 by Mariposa Márquez APRN.CNP [facility]04-09-2025 Miscellaneous Notes* Telephone Encounter - Mariposa Márquez APRN.CNP - 02/25/2025 8:56 AM EDT [facility] and [facility]. All prescriptions have been APPROPRIATELY filled. No suspiciousactivity was identified. 02/25/2025 by Mariposa Márquez APRN.CNP * Telephone Encounter - Radha Haro [...] you. Radha Haro LPN. documented in this encounterC[facility]04-09-2025 Telephone encounter Note * Telephone Encounter [...] Please advise. Thank you. Radha Haro LPN. [facility]04-06-2025 Telephone encounter Note* Telephone Encounter - Sara Adams OCCA - 02/22/2025 9:08 AM EDT TC to patients daughter and medical JUAN Michaela, who verbalized understanding of providers message below. KIRIT Mendez [facility]04-06-2025 Miscellaneous Notes* Telephone Encounter - Sara [...] to see primary care documented in this encounterC[facility]04-06-2025 Telephone encounter Note * Telephone Encounter - Walt Robles APRN.CNP - 02/22/2025 8:31 AM EDT Patient is on the correct antibiotic. Symptoms should be improving. If symptoms are not improving patient needs to see primary care [facility]04-03-2025 Telephone encounter Note* Telephone Encounter - Colten Greer MA - 02/19/2025 3:19 PM EDT Spoke with patient's daughter. Daughter will bring patient in for urine. Colten Greer MA [facility]04-03-2025 Miscellaneous Notes* Telephone Encounter - Colten Greer MA - 02/19/2025 3:19 PM EDT Spoke with patient's daughter. Daughter will bring patient in for urine. Colten Greer MA * Telephone Encounter - Walt Robles APRN.CNP - 02/19/2025 3:03 PM EDT Please call patient and have her come back in and give a urine culture. documented in this encounterC[facility]04-03-2025 Telephone encounter Note * Telephone Encounter - Walt Robles APRN.CNP - 02/19/2025 3:03 PM EDT Please call patient and have her come back in and give a urine culture. [facility]04-03-2025 NoteHNO ID: [id number] Author: WALT ROBLES APRN.CNP Service: ? Author Type: Nurse Practitioner [...] history is provided by the patient. No bridge manager was used. Review of Systems Constitutional: Negative. [...] be changed please change accordingly. Walt Robles APRN.[facility] [employer] [facility]04-[facility] History of Present illness Narrative* Walt [...] history is provided by the patient. No bridge manager was used. Review of Systems Constitutional: Negative. [...] Robles APRN.CNP MDM Procedures documented in this encounterCleveland Clinic [facility]04-02-2025 NoteHNO ID: [id number] Author: MICHAELA DAVILA MA Service: ? Author Type: Straight Knife Machine Cutter Type: Progress Notes Filed: 02/18/2025 16:19 Note Text: Ambulatory Ear Lavage Pre-treatment: No pre-treatment Treatment: Right ear Equipment and Irrigation solution and Volume used: Single use syringe with single use irrigation tip Water Return flow appearance: Debris Patient tolerated procedure: yes Tympanic membrane assessment: Tympanic membrane assessed by LIP pre and post procedureMagruder Memorial Hospital04-02-2025 History of Present illness Narrative* Michaela Davila MA - 02/18/2025 11:19 AM EDT Ambulatory Ear Lavage Pre-treatment: No pre-treatment Treatment: Right ear Equipment and Irrigation solution and Volume used: Single use syringe with single use irrigation tip Water Return flow appearance: Debris Patient tolerated procedure: yes Tympanic membrane assessment: Tympanic membrane assessed by LIP pre and post procedure * Mariposa Márquez APRN.FAMILY LAW [employer]GAL - 02/18/2025 10:26 AM EDT CC: Patient [...] Vaccine(1) due on 07/20/2024 Covid-19 Vaccine( - 2023- season) due on 07/20/2024 Advance Directive Discussion [...] occur. Patient agreeable to treatment plan. Mariposa Márquez APRN.CNP Medical Decision Making: Problems: Minimal: Self-limited or minor problem Data: Unique test(s) ordered: 1 Risk: Low: Low risk from testing/treatment Medical Decision Making Level: 2 - Straightforward documented in this encounterCleveland Clinic [facility]04-02-2025 NoteHNO ID: [id number] Author: MARIPOSA MÁRQUEZ APRN.CNP Service: ? Author Type: Nurse Practitioner [...] 02/28/2020 Influenza Vaccine(1) due on 07/20/2024 Covid-19 Vaccine(2023-25 season) due on 07/20/2024 Advance Directive Discussion [...] occur. Patient agreeable to treatment plan. Mariposa Márquez APRN.ARIEL Medical Decision Making: Problems: Minimal: Self-limited or minor problem Data: Unique test(s) ordered: 1 Risk: Low: Low risk from testing/treatment Medical Decision Making Level: 2 - StraightforwardMagruder [facility] Hospital 02-04-2025 NoteHNO ID: [id number] Author: DILLAN SANTIAGO MD Service: ? Author [...] past week. Michaela reports a sensation of "plugged" ears and has a history of regular [...] increased anxiety or adv (more content not included)...[facility]03[facility] History of Present illness Narrative* Dillan [...] past week. Michaela reports a sensation of "plugged" ears and has a history of regular [...] patient consented to the use of ambient [employer] software for draft documentation of the visit consistent with [facility] s Notice of Privacy Practices. Dillan Santiago MD documented in this encounterC[facility] Clinic [facility]03-19-2025 Instructions* Patient Instructions* Dillan Santiago MD [...] in managing your health. documented in this encounterC[facility]03-19-2025 Telephone encounter Note * Telephone Encounter - Mckenzie Lombardo LPN - 02/04/2025 10:47 AM EDT Patient IForemhart message requesting the following refill Refill(s) Requested: Requested Prescriptions Pending Prescriptions Disp Refills donepezil (ARICEPT) 5 mg tablet 30 tablet 11 Sig: Take 1 tablet by mouth daily at bedtime. ALLERGIES No Known Allergies (home) [phone] (cell) Last Office Visit Date: 12/10/2024 Last Distance Health Visit: Visit date not found Future Appointment: 02/04/2025 The patients preferred pharmacy has been captured for this encounter? yes Request is for script(s) to be escript to pharmacy. Mckenzie Lombardo LPN [facility]03-19-2025 Miscellaneous Notes* Telephone Encounter - Mckenzie Lombardo LPN - 02/04/2025 10:47 AM EDT Patient IForemhart message requesting the following refill Refill(s) Requested: Requested Prescriptions Pending Prescriptions Disp Refills donepezil (ARICEPT) 5 mg tablet 30 tablet 11 Sig: Take 1 tablet by mouth daily at bedtime. ALLERGIES No Known Allergies (home) [phone] (cell) Last Office Visit Date: 12/10/2024 Last [facility] Health Visit: Visit date not found Future Appointment: 02/04/2025 The patients preferred pharmacy has been captured for this encounter? yes Request is for script(s) to be escript to pharmacy. Mckenzie Lombardo LPN documented in this encounterC[facility]03-13-2025 Telephone encounter Note * Telephone Encounter - Michaela Davila MA - 01/29/2025 8:47 AM EDT Please assist patient in scheduling geriatric follow up to review MRI results per Dr Santiago. [facility]03-13-2025 Miscellaneous Notes* Telephone Encounter - Michaela [...] her MRI. You could cancel the Mariposa márquez appointment that is upcoming and just keeps appointment with me. Regards, Dillan Santiago MD documented in this encounterCleveland Clinic [facility]03-13-2025 Telephone encounter Note * Telephone Encounter [...] appointment with me. Regards, Dillan Santiago MD [facility]03-10-2025 Miscellaneous Notes* Telephone Encounter - Michaela Davila MA - 01/26/2025 2:39 PM EDT Please see patient directions for use. Patient will run out of medication before fill date. documented in this encounterCleveland Clinic [facility]03-10-2025 Telephone encounter Note * Telephone Encounter - Michaela Davila MA - 01/26/2025 2:39 PM EDT Please see patient directions for use. Patient will run out of medication before fill date. [facility]03-10-2025 Telephone encounter Note* Telephone Encounter - Kecia Red RN - 01/26/2025 11:13 AM EDT Daughter (Maribeth) calls to ask if provider could send in a small supply of clonazepam to get patient to next refill of clonazepam on 01/31/2025. Patient is completely out. Patient is currently taking it twice daily and patient is completely out of medication. She has nasirley cut out mid-afternoon dose and once she receives new prescription plans to decrease am dose by 1/2 but patient has to do in very small steps to avoid causing increase in anxiety. Pended per request. Please review and adviseKecia RN [facility]03-10-2025 Miscellaneous Notes* Telephone Encounter - Kecia eRd RN - 01/26/2025 11:13 AM EDT Daughter [...] advise, Kecia Red RN documented in this encounterCleveland Clinic [facility]03-08-2025 History of Present illness Narrative* Manisha [...] PATIENT PRESENTS WITH AN IMPLANTABLE OR ATTACHED MEDICAL RECORD LIBRARIANS TEACHER: No RADIOLOGY DEPARTMENT: MR; Exam(s) Completed: Head: Routine Brain (QUANT) PERIPHERAL IV DATA: Not applicable SIGNED BY: ROGELIO Osborne)(MR) January 24, 2025 1:31 PM documented in this encounterCleveland Clinic [facility]03-08-2025 NoteHNO ID: [id number] Author: MANISHA JOSEPH RT(R) Service: Radiology Author [...] PATIENT PRESENTS WITH AN IMPLANTABLE OR ATTACHED MEDICAL RECORD LIBRARIANS TEACHER: No RADIOLOGY DEPARTMENT: MR; Exam(s) Completed: Head: Routine Brain (QUANT) PERIPHERAL IV DATA: Not applicable SIGNED BY: ROGELIO Osborne)(MR) January 24, 2025 1:31 [facility] Telephone encounter Note* Telephone Encounter - Mariposa Márquez APRN.CNP - 01/22/2025 3:13 PM EST [facility] website checked and validated. All prescriptions have been APPROPRIATELY filled. No suspiciousactivity was identified. 01/22/2025 by Mariposa Márquez APRN.CNP [facility]03-06-2025 Miscellaneous Notes* Telephone Encounter - Mariposa Márquez APRN.CNP - 01/22/2025 3:13 PM EST [facility] website checked and validated. All prescriptions have been APPROPRIATELY filled. No suspiciousactivity was identified. 01/22/2025 by Mariposa Márquez APRN.CNP * Telephone Encounter - Radha Haro [...] you. Radha Haro LPN. documented in this encounterC[facility]03-05-2025 Telephone encounter Note * Telephone Encounter [...] Please advise. Thank you. Radha Haro LPN. [facility]02-13-2025 Telephone encounter Note* Telephone Encounter - [...] Cruz LPN January 01, 2025 8:02 AM [facility]02-13-2025 Miscellaneous Notes* Telephone Encounter - Jada [...] 01, 2025 8:02 AM documented in this encounterCleveland Clinic [facility]02-06-2025 Telephone encounter Note * Telephone Encounter - Nusrat Palmer LPN - 12/25/2024 12:50 PM EST Received one lab from [facility] [employer] via [address]. Uploaded to [employer] via [address]. Nusrat Palmer LPN [facility]02-06-2025 Miscellaneous Notes* Telephone Encounter - Nusrat Palmer LPN - 12/25/2024 12:50 PM EST Received one lab from [employer] via [address]. Uploaded to [employer] via [address]. Nusrat Palmer LPN * Telephone Encounter - Nusrat Palmer LPN - 12/23/2024 4:45 PM EST Faxed signed Authorization to Disclose Health Information to [facility] to office of Dr. Ovalle for urological records. Nusrat Palmer LPN documented in this encounterCleveland Clinic [facility]02-04-2025 Telephone encounter Note * Telephone Encounter - Nusrat Palmer LPN - 12/23/2024 4:45 PM EST Faxed signed Authorization to Disclose Health Information to [facility] to office of Dr. Ovalle for urological records. Nusrat Palmer LPN [facility]02-04-2025 NoteHNO ID: [id number] Author: GRAZYNA BRIGHT RN Service: ? Author Type: Physician Aquatic Laborer Type: Progress Notes Filed: 05/19/2025 09:06 Note Text: [facility] PATIENT CLINIC NOTE (F) SERVICE DATE: December [...] ONLY: yes LABS: No results found for: "PSA" Creatinine Date Value Ref Range Status 11/17/2024 [...] for permanent urinary reten (more content not included)...[facility] History of Present illness Narrative* Tom Baltazar PA-C - 12/23/2024 10:59 AM EST Images from the original note were not included. [facility] NEW PATIENT CLINIC NOTE (F) [...] ONLY: yes LABS: No results found for: "PSA" Creatinine Date Value Ref Range Status 11/17/2024 [...] VADIM Stanford MT, PA-C documented in this encounterCleveland Clinic [facility]01-28-2025 Miscellaneous Notes* Telephone Encounter - Colten Greer MA - 12/16/2024 2:33 PM EST Spoke with Giovanni at [facility]. Once he has seen the patient and admitted into their program, he will be faxing forms for Dr. Santiago to sign. Patient's daughter informed and we will await forms. Colten Greer MA * Telephone Encounter - Mckenzie Lombardo LPN - 12/12/2024 2:28 PM EST Called leonardo for 2nd time, left message with Intake. To call office back Leonardo# [phone] Mckenzie Lombardo LPN December 12, 2024 2:29 PM * Telephone Encounter - Colten Greer MA - 12/10/2024 2:10 PM EST Patient's daughter states that [facility] needs something from Dr. Santiago that its ok for patient to attend but not sure what exactly is needed. Phone call to [facility] for intake to contact our office to see what information they need from us. Colten Greer MA documented in this encounterCleveland Clinic [facility]01-28-2025 Telephone encounter Note * Telephone Encounter - Colten Greer MA - 12/16/2024 2:33 PM EST Spoke with Giovanni at [facility]. Once he has seen the patient and admitted into their program, he will be faxing forms for Dr. Santiago to sign. Patient's daughter informed and we will await forms. Colten Greer MA [facility]01-27-2025 Telephone encounter Note* Telephone Encounter - Mariposa Márquez APRN.CNP - 12/15/2024 7:14 AM EST PDMP website checked and validated. All prescriptions have been APPROPRIATELY filled. No suspiciousactivity was identified. 12/15/2024 by Mariposa Márquez APRN.CNP [facility]01-27-2025 Miscellaneous Notes* Telephone Encounter - Mariposa Márquez APRN.CNP - 12/15/2024 7:14 AM EST PDMP website checked and validated. All prescriptions have been APPROPRIATELY filled. No suspiciousactivity was identified. 12/15/2024 by Mariposa Márquez APRN.CNP * Telephone Encounter - Mckenzie Lombardo LPN - 12/12/2024 3:16 PM EST Patient MyChart message requesting the following refill Refill(s) Requested: Requested Prescriptions Pending Prescriptions Disp Refills clonazePAM (KLONOPIN) 0.5 mg tablet 45 tablet 0 Sig: Take 1 tablet by mouth three times a day as needed for anxiety for up to 30 days. ALLERGIES No Known Allergies (home) [phone] (cell) Last Office Visit Date: 11/05/2024 Last Distance Health Visit: Visit date not found Future Appointment: 02/04/2025 The patients preferred pharmacy has been captured for this encounter? yes Request is for script(s) to be escript to pharmacy. Mckenzie Lombardo LPN documented in this encounterCleveland Clinic [facility]01-24-2025 Telephone encounter Note * Telephone Encounter - Mckenzie Lombardo LPN - 12/12/2024 3:16 PM EST Patient MyChart message requesting the following refill Refill(s) Requested: Requested Prescriptions Pending Prescriptions Disp Refills clonazePAM (KLONOPIN) 0.5 mg tablet 45 tablet 0 Sig: Take 1 tablet by mouth three times a day as needed for anxiety for up to 30 days. ALLERGIES No Known Allergies (home) [phone] (cell) Last Office Visit Date: 11/05/2024 Last Distance Health Visit: Visit date not found Future Appointment: 02/04/2025 The patients preferred pharmacy has been captured for this encounter? yes Request is for script(s) to be escript to pharmacy. Mckenzie Lombardo LPN [facility]01-24-2025 Telephone encounter Note* Telephone Encounter - Mckenzie Lombardo LPN - 12/12/2024 2:28 PM EST Called leonardo for 2nd time, left message with Intake. To call office back Leonardo# [phone] Mckenzie Lombardo LPN December 12, 2024 2:29 PM [facility]01-22-2025 Telephone encounter Note* Telephone Encounter - Colten Greer MA - 12/10/2024 2:10 PM EST Patient's daughter states that [facility] needs something from Dr. Santiago that its ok for patient to attend but not sure what exactly is needed. Phone call to [facility] for intake to contact our office to see what information they need from us. Colten Greer MA [facility]01-22-2025 NoteHNO ID: [id number] Author: COLTEN GREER MA Service: ? Author Type: Straight Knife Machine Cutter Type: Progress Notes Filed: 12/10/2024 17:10 Note Text: Patient presents for geriatric consult with daughter Teodora. Rooming intake completed with patient and Teodora to ensure accuracy. PHQ-9 and MOCA reviewed with patient and entered into questionnaires. [facility] History of Present illness Narrative* Colten Greer MA - 12/10/2024 1:11 PM EST Patient presents for geriatric consult with daughter Teodora. Rooming intake completed with patient and Teodora to ensure accuracy. PHQ-9 and MOCA reviewed with patient and entered into questionnaires. Colten Greer MA * Dillan Santiago MD - 12/10/2024 12:54 PM EST [facility] Initial Consult Mihcaela Brandt is a 84 year old year [...] on her own. They are looking into [facility]. Have cameras installed so they [...] she knows and feels. Just moved to [place] where her daughter lives after needing to sell her 3 story home to allow her to continue to live independently. [place] Is now in her own 1 level apartment. Needs assistance with medication dispensing and is needing support to drive herto appointments and to the store. Is hoping to go to [email or web address] a few times a week as well. [...] UTIs and [place]rologist [place]. Denies abdominal pain, fever, chills, or dark/foul [...] secure location? No Social History: Primary language: Georgian Marital Status: Living situation: Home w/ Family Socially engaged? (participates in activities such as clubs, zoroastrian, community center, sports, games, visiting friends/relatives, etc?): YES once a week she goes out. Caregiver [place] and Stress Are your feeling overwhelmed? NO [...] Date , Taking? Yes, Authorizing Provider Mariposa Márquez APRN.FAMILY LAW PARALEGAL Medication escitalopram oxalate (LEXAPRO) 20 mg tablet, Sig Take 1 tablet by mouth once daily., Start Date 11/05/24, End Date , Taking? Yes, Authorizing Provider Mariposa Márquez APRN.FAMILY LAW PARALEGAL Medication traZODone (DESYREL) 50 mg tablet, Sig Take 1 tablet by mouth daily at bedtime., Start Date 11/05/24, End Date , Taking? Yes, Authorizing Provider Mariposa Márquez APRN.CNP Medication clonazePAM (KLONOPIN) 0.5 mg tablet, Sig Take 1 tablet by mouth three times a day as needed for anxiety for up to 30 days., Start Date 11/05/24, End Date 12/05/24, Taking? , Authorizing Provider Mariposa Márquez APRN.CNP Other OTC med/supplements: None Medication Review: - ANY HIGH RISK MEDICATIONS (STOPP CRITERIA): NO ALLERGIES No Known Allergies Review of Systems Difficulty chew/swallow: No Pain: No Tremor: No Incontinence - During the last 3 months did you leak urine? NO Constipation/Change in bowel habits: NO Vision No vision problems reported Follows with golf course designer:YES Hearing - Hearing aid : Denies any [...] NO Slowness: yes Lenin Cognitive Exam (MOCA): 1330 CDR Dementia Scale 1) Subjective Memory Loss: NO 2) Measurable Memory Loss: NO 3) IADLs: NO 4) BADLs: NO Driving Safely: Yes > 50% 6) Medications: No Level: CDR 0 Depression Screening/Evaluation: Labs: None available today Brain Imaging:None available today Assessment and Plan: I. 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 Patient does have functional impairment in [...] encouraged to make her paper work for [employer] and living mike. REFERRALS AND RECOMMENDATIONS 1. Discussed the cognitive benefits of memory exercises and reviewed examples 2. Discussed the cognitive benefits of physical exercise and socialization Dillan Santiago MD [place] [facility] documented in this encounterC[facility]25 NoteHNO ID: [id number] Author: DILLAN SANTIAGO MD Service: ? Author Type: Physician Type: Progress Notes Filed: 12/10/2024 17:10 Note Text: [facility] Initial Consult Michaela Brandt [...] on her own. They are looking into [facility]. Have cameras installed so they [...] she knows and feels. Just moved to [place] where her daughter lives after needing to sell her 3 story home to allow her to continue to live independently. [place] Lud[place] Is now in her own 1 level apartment. Needs assistance with medication dispensing and is needing support to drive her to appointments and to the store. Is hoping to go to [employer] a few times a week as well. [...] UTIs and [place]rologist [place]. Denies abdominal pain, fever, chills, or dark/foul [...] secure location? No Social History: Primary language: Georgian Marital Status: Living situation: Home w/ Family Socially engaged? (participates in activities such as clubs, zoroastrian, community center, sports, games, visiting friends/relatives, etc?): YES once a week she goes out. Caregiver [place] and Stress Are your feeling overwhelmed? NO [...] Date , Taking? Yes, Authorizing Provider Mariposa Márquez APRN.CNP Medication escitalopram oxalate (LEXAPRO) 20 m (more content not included)... [facility]01-03-2025 Telephone encounter Note* Telephone Encounter - Mariposa Márquez APRN.CNP - 11/21/2024 1:10 PM EST Recently filled by Dr. Kaiden Márquez APRN.CNP [facility]01-03-2025 Miscellaneous Notes* Telephone Encounter - Mariposa Márquez APRN.CNP - 11/21/2024 1:10 PM EST Recently filled by Dr. Kaiden Márquez APRN.FAMILY LAW PARALEGAL * Telephone Encounter - Rosaura Melchor MD - 11/16/2024 8:12 PM EST RX filled 11/13 per PDMP Ludin Richey prescribed med Noted Maripsoa also sent RX 11/05 Check with patient if got RX. If not, check with pharmacy * Telephone Encounter - Mckenzie Lombardo LPN - 11/14/2024 8:16 AM EST Family member IForemhart message requesting the following refill Refill(s) Requested: Requested Prescriptions Pending Prescriptions Disp Refills clonazePAM (KLONOPIN) 0.5 mg tablet 45 tablet 0 Sig: Take 1 tablet by mouth three times a day as needed for anxiety for up to 30 days. ALLERGIES No Known Allergies (home) [phone] (cell) Last Office Visit Date: 11/05/2024 Last [facility] Health Visit: Visit date not found Future Appointment: 02/04/2025 The patients preferred pharmacy has been captured for this encounter? yes Request is for script(s) to be escript to pharmacy. Mckenzie Lombardo LPN documented in this encounterC[facility] Telephone encounter Note * Telephone Encounter - Rosaura Melchor MD - 11/16/2024 8:12 PM EST RX filled 11/13 per PDMP Ludin Richey prescribed med Noted Marpiosa also sent RX 11/05 Check with patient if got RX. If not, check with pharmacy [facility] Work Phone: 1(208) 585-781712-27-2024 Telephone encounter Note* Telephone Encounter - Mckenzie Lombardo LPN - 11/14/2024 8:16 AM EST Family member MyChart message requesting the following refill Refill(s) Requested: Requested Prescriptions Pending Prescriptions Disp Refills clonazePAM (KLONOPIN) 0.5 mg tablet 45 tablet 0 Sig: Take 1 tablet by mouth three times a day as needed for anxiety for up to 30 days. ALLERGIES No Known Allergies (home) [phone] (cell) Last Office Visit Date: 11/05/2024 Last [facility] Health Visit: Visit date not found Future Appointment: 02/04/2025 The patients preferred pharmacy has been captured for this encounter? yes Request is for script(s) to be escript to pharmacy. Mckenzie Lombardo LPN [facility]12-19-2024 Telephone encounter Note* Telephone Encounter - Jada Dela Cruz LPN - 11/06/2024 8:39 AM EST Received a request from pt's pharmacy. See message from pharmacy. Jada Dela Cruz LPN [facility]12-19-2024 Miscellaneous Notes* Telephone Encounter - Jada Dela Cruz LPN - 11/06/2024 8:39 AM EST Received a request from pt's pharmacy. See message from pharmacy. Jada Dela Cruz LPN documented in this encounterC[facility]12-18-2024 NoteHNO ID: [id number] Author: MARIPOSA MÁRQUEZ APRN.FAMILY LAW PARALEGAL Service: ? Author Type: Nurse Practitioner Type: Progress Notes Filed: 11/05/2024 15:38 Note Text: CC: Patient presents with: Establish Care: Establish Care HPI Michaela Brandt is a 84 year old female who presents today for establish care. Just moved to [place] where her daughter lives after needing to sell her 3 story home to allow her to continue to live independently. [place] Is now in her own 1 level apartment. Needs assistance with medication dispensing and is needing support to drive her to appointments and to the store. Is hoping to go to [employer] a few times a week as well. [...] [place] and [place]rologist [place]. Denies abdominal pain, fever, chills, or dark/foul [...] 311, ICD10: F41.9, F32.A (more content not included)...[facility]12-18-2024 History of Present illness Narrative* Older, Mariposa, SALES AND SERVICE CHANGE LEADER.FAMILY LAW PARALEGAL - 11/05/2024 2:39 PM EST CC: Patient presents with: Establish Care: Establish Care HPI Michaela Brandt is a 84 year old female who presents today for establish care. Just moved to [place] where her daughter lives after needing to sell her 3 story home to allow her to continue to live independently. [place] Lud[place] Is now in her own 1 level apartment. Needs assistance with medication dispensing and is needing support to drive herto appointments and to the store. Is hoping to go to [employer] a few times a week as well. [...] [place]Is and [place]. Denies abdominal pain, fever, chills, or dark/foul [...] - Instructed patient to contact office or [id number] after-hours promptly should condition worsen or any new symptoms appear. - Counseling Center [facility] and after hours crisis line [...] on exam table due to balance - [facility] - CONSULT TO GERIATRICS 5. Ambulates with cane - ICD9: V46.8, ICD10: Z99.89 As above - [facility] - CONSULT TO GERIATRICS 6. Concern about memory - ICD9: V65.5, ICD10: Z71.1 Patient denies but did have moments of not remembering past information correctly. Daughter feels memory is a concern. - lives alone so needs medication dispenser to help patient appropriately take her medications. - [facility] CARE - COMPREHENSIVE METABOLIC PANEL [...] for her to independently bathe herself. - [facility] - CONSULT TO GERIATRICS [...] occur. Patient agreeable to treatment plan. Mariposa Márquez APRN.CNP documented in this encounterCleveland Clinic Hill[facility]st HospitalDischar summary Author Domingo Darby [facility] Note Date/Time May 17, 2025 11:3 3am [facility] Medical Records Department [address] [place] [id number] Emergency Department Summary 05/17/25 MR#: [id number] Acct: [id number] Name: MICHAELA BRANDT Rep #:[id number] : [...] her occupational and physical therapy and some mcfp. They also have cameras in and keep [...] Prior similar symptoms: Yes Recent [facility] Medical History Closed intertrochanteric fracture of left [...] MDM MDM Narrative Medical decision making narrative: [id number] female with dementia lives at home with [...] 78.8 H Lymph % (Auto) 14.1 L [place] % (Auto) 5.1 Eos % (Auto) 0.9 Baso % (Auto) 0.6 Absolute Neuts (auto) 6.9 Absolute Lymphs (auto) 1.24 Nucleated RBC % 0 Sodium 142 Potassium 3.9 Chloride 104 Carbon Dioxide 26.5 Anion Gap 12 BUN 15 Creatinine 0.96 Est GFR (MDRD) Non-Af 58 L BUN/Creatinine Ratio 15.6 Glucose 97 Calcium 9.0 Urine Color Yellow Urine Clarity Clear Urine pH 6.0 Ur Specific Thompson 1.020 Urine Protein 30 H Urine Glucose [...] improving or return if worse. Print Language: Georgian Disposition Disposition: Home, Self Care What to do if you have Problems For any increased pain, shortness of breath, bleeding, nausea or vomiting, chestpain, or any unexpected problems, contact your Primary Care Provider. Call [facility] ([phone]) or report to the closest Emergency Room. Call 911 if necessary. 05/17/25 1133 <Electronically signed by Domingo Darby MD> Cosigner Signature (if applicable): CC: Dr. Dillan Santiago MD ~ Signed [facility] Work Phone: Evaluation note* Diagnosis Onset Date Resolution Status Osteoarthritis of knees, bilateral noneactive [facility] Work Phone: Evaluation note* Diagnosis [...] Other urinary problems [facility] this encounter [facility]* Diagnosis Hypothyroidism, unspecified type documented in this encounter [facility]* Diagnosis Hypothyroidism, unspecified type documented in this encounter [facility]* Diagnosis Anxiety and depression Dysthymic disorder documented in this encounter [facility]* Diagnosis Anxiety and depression Dysthymic disorder documented in this encounter [facility]* Diagnosis Cognitive impairment, mild, so stated- Primary Mild cognitive impairment, so stated Self-catheterizes urinary bladder Other specified conditions influencing health status Balance disorder Other symptoms involving nervous and musculoskeletal systems Concern about memory Anxiety and depression Dysthymic disorder Assistance needed for bathing Ambulates with cane documented in this encounter [facility] note* Diagnosis Anxiety and depression Dysthymic disorder documented in this encounter [facility] note* Diagnosis Anxiety and depression Dysthymic disorder documented in this encounter [facility] note* Diagnosis Retention of urine, unspecified- Primary Self-catheterizes urinary bladder Other specified conditions influencing health status Urinary problem Other urinary problems documented in this encounter [facility] note* Diagnosis Anxiety and depression Dysthymic disorder documented in this encounter [facility] note* Diagnosis Ambulatory dysfunction- Primary Difficulty in walking documented in this encounter [facility]* Diagnosis Anxiety and depression Dysthymic disorder documented in this encounter [facility] note* Diagnosis Cognitive impairment, mild, so stated Mild cognitive impairment, so stated documented in this encounter [facility] note* Diagnosis Anxiety and depression Dysthymic disorder documented in this encounter [facility] note* Diagnosis 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, psychotic disturbance, mood disturbance, or anxiety (HCC)- Primary Impacted cerumen, right ear Insomnia due to mental disorder Generalized anxiety disorder documented in this encounter [facility] note* Diagnosis Impacted cerumen of right ear- Primary Impacted cerumen documented in this encounter [facility] note* Diagnosis Recurrent UTI (urinary tract infection)- Primary Urinary tract infection, site not specified documented in this encounter [facility] note* Diagnosis Urinary frequency- Primary documented in this encounter [facility]* Diagnosis Anxiety and depression Dysthymic disorder documented in this encounter [facility] note* Diagnosis 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, psychotic disturbance, mood disturbance, or anxiety (HCC)- Primary Ambulatory dysfunction Difficulty in walking documented in this encounter [facility] note* Diagnosis Onset Date Resolution Status Admit Date Acute pain of left knee acute A pril 2024 1:47pm Closed intertrochanteric fra cture of left hip acute March 01, 2025 1:47pm Fall acute March 01 1:47pm [facility] Work Phone: Evaluation note* Diagnosis Ambulatory [...] stage 3 (HCC) [facility] this encounter [facility]* Diagnosis Onychomycosis- Primary Dermatophytosis of nail documented in this encounter [facility]* Diagnosis Hypothyroidism, unspecified type Anxiety and depression Dysthymic disorder documented in this encounter [facility]* Diagnosis Acute heart failure, unspecified heart failure type (HCC)- Primary Prediabetes Other abnormal glucose Urinary retention Retention of urine, unspecified Acute deep vein thrombosis (DVT) of calf muscle vein of left lower extremity (HCC) Edema, unspecified type Self-catheterizes urinary bladder Other specified conditions influencing health status Weakness of both lower extremities S/P hip hemiarthroplasty Hip joint replacement by other means [facility] Recurrent UTI- Primary Urinary tract infection, site not specified 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) Anxiety and depression Dysthymic disorder Acute heart failure, unspecified heart failure type (HCC) Self-catheterizes urinary bladder Other specified conditions influencing health status Urinary retention Retention of urine, unspecified Onychomycosis Dermatophytosis of nail Thickened nail Other specified disease of nail Acquired deformity of toe, unspecified laterality IGTN (ingrowing toe nail) Ingrowing nail [facility] Author Cindy Molina [facility] Note Date/Time June 20, 2025 2:5 5pm [facility] Medical Records Department [address] [place] [address] H&P Exam - Hospitalist 06/20/25 1425 MR#: [id number] Acct: [id number] Name: MICHAELA BRANDT Rep #:[id number] : 1940 84 From: Cindy Molina MD PCP: Dr. Dillan Santiago MD Status:ADM I N [place] [facility] [place] HPI - General General Date of Admission: 06/20/25 Date of Service: 06/20/25 Chief Complaint: Knee pain after fall HPI Narrative MICHAELA BRANDT, is a 84-year-old female history of hypothyroidism, dementia, urinary self catheterization, hypertension, depression, on Eliquis who [facility] 06/20/[facility] after a fall. Reportedly had mechanical fall and tripped over her walker and was found by the home health aide, unclear how long she was down. Was complaining of left hip pain and bilateral knee pain. Family did note earlier in the year she had hip replacement and had been progressing well until now. In the ED temp 98.1, heartrate 87 and blood pressure initially 95/81 but improved to 153/28, respiratory rate 16 and pulse ox 97% on room air. CBC notable for white blood cell count of28.5 with normal hemoglobin and platelet count, BMP fairly unremarkable aside from a glucose of 149. Liver profile did have a T. bili of 2.15, direct bili 0.58, AST of 47 and ALP of 121. CPK of 914, unclear how long patient was down. She was mark scanned with no acute process in the brain and cervical spine, hip and pelvis x-ray showed nonunion of previously noted intertrochanteric fracture despite presence of surgical hardware. Ortho contacted on-call and no acute management recommended. UA with occult blood, nitrate, leuk esterase and bacteria. Patient given IV antibiotics, urine culture sent, and hospitalist contacted for admission. Pt evaluated at bedside. She reports she was in the bathroom earlier and got up and was walking with her walker but part of the front is worn out causing her to trip, she fell directly on her knees and does report some soreness in bilateral knees but denies any current pain in her hips or any other pain. She is unsure of any urinary symptoms as she chronically self caths. Reports that at some point they are going to do a suprapubic catheter but this has not been scheduled yet. No fevers or other acute complaints PFSH Medical History (Updated 06/20/25 @ 14:[address] Cindy Molina MD) Anxiety Back pain Closed intertrochanteric fracture of left hip Dementia Fall Hypertension Hypothyroidism Self-catheterizes urinary bladder Home Medications ?Medication ?Instructions ?Recorded ?Last Taken ?Type ascorbic acid (vitamin C) 500 mg 500 mg PO DAILY suppl ement 03/01/25 06/19/25 History tablet (C-500) donepezil 10 mg tablet 10 mg PO DAILY dementia 02/1706/19/25 History escitalopram oxalate 20 mg tablet 20 mg PO DAILY anxie ty 03/01/25 06/19/25 History levothyroxine 50 mcg tablet 50 mcg PO DAILY thyroid 06/19/25 History trazodone 50 mg tablet 50 mg PO QHS anxiety 5 06/19/25 History acetaminophen 500 mg tablet 1,000 mg (2 x 500 mg) PO Q 8 #0 tabs 03/16/25 Unknown Rx apixaban 5 mg tablet (Eliquis) 5 mg PO BID #0 tabs 06/19/25 Rx sennosides 8.6 mg-docusate sodium 1 tab PO BID #0 tabs 03/16/25 Unknown Rx 50 mg tablet (Stimulant Laxative Plus) buspirone 5 mg tablet 5 mg PO BID 06/20/25 5 History cholecalciferol (vitamin D3) 125 125 mcg PO DAILY 01/1306/19/25 History mcg (5,000 unit) capsule clonazepam 0.5 mg tablet 0.5 mg PO Q8H PRN anxiety 06/19/25 History Allergy/AdvReac Type Severity Reaction Status Date / Time No Known Allergies Allergy Verified 06/20/25 08:35 Family History Other Hypertension Surgical History H/O: hysterectomy Status post right knee replacement Social History household members: none housing: apartment current occupational status: retired other: Daughter lives a few doors down helps her on a regular basis Smoking Status: Never smoker alcohol intake: never substance use type: does not use ROS ROS Narrative General: Denies fever/chills HENT: Denies headache, denies stuffy nose, denies sore throat EYES: Denies changes in vision Resp: Denies cough, denies shortness of breath Cardiac: Denies chest pain GI: Denies abdominal pain, denies changes in bowel, denies nausea/vomiting : Self catheterizes Extremity: Denies swelling MSK: Denies weakness, has some pain in her knees Neuro: Denies any numbness/tingling Heme: Denies any bleeding or bruising Skin: Has some redness in her knees Psychiatric: No complaints voiced Vital Signs Vital Signs Vital Signs: 06/20/25 08:29 06/20/25 09:02 06/20/25 10:28 Temperature 98.1 F Temperature Source Oral Pulse Rate 87 71 Respiratory Rate 16 18 Respiratory Effort Normal Non-Labored Respiratory Depth Normal Respiratory Pattern Normal Blood Pressure 95/81 H 134/106 H Blood Pressure Mean 85 115 Pulse Ox 97 95 Oxygen Delivery Method Room Air Room Air Room Air 06/20/25 12:00 06/20/25 12:03 06/20/25 12:15 Temperature Temperature Source Pulse Rate 75 76 77 Respiratory Rate 26 H 25 H 18 Respiratory Effort Respiratory Depth Respiratory Pattern Blood Pressure 153/128 H Blood Pressure Mean 136 Pulse Ox 98 99 100 Oxygen Delivery Method 06/20/25 12:30 06/20/25 12:45 06/20/25 13:00 Temperature Temperature Source Pulse Rate 75 88 76 Respiratory Rate 28 H 27 H 28 H Respiratory Effort Respiratory Depth Respiratory Pattern Blood Pressure Blood Pressure Mean Pulse Ox 100 97 99 Oxygen Delivery Method 06/20/25 13:15 06/20/25 13:30 06/20/25 13:45 Temperature Temperature Source Pulse Rate 74 75 68 Respiratory Rate 23 H 28 H 26 H Respiratory Effort Respiratory Depth Respiratory Pattern Blood Pressure Blood Pressure Mean Pulse Ox 98 97 97 Oxygen Delivery Method 06/20/25 14:00 06/20/25 14:15 06/20/25 14:18 Temperature 98.1 F Temperature Source Pulse Rate 64 67 75 Respiratory Rate 20 H 25 H 26 H Respiratory Effort Respiratory Depth Respiratory Pattern Blood Pressure 153/128 H Blood Pressure Mean 136 Pulse Ox 98 97 98 Oxygen Delivery Method Weight Weight: 54.522 kg Body Mass Index (BMI) 23.4 Physical Exam Narrative General: Alert, knows she is at [facility], initially thought year was 2028 but corrected to 2024, knew it was June, no apparent distress HEENT: Atraumatic, normocephalic Eyes: Anicteric, normal conjunctiva, extraocular movements grossly intact Neck: Supple Respiratory: Clear to auscultation bilaterally, normal respiratory effort Cardiovascular: Regular rate and rhythm GI: Soft, nontender, nondistended Extremities: No edema Musculoskeletal: Moving all extremities Neuro: No overt focal neurological deficits Skin: Does have some erythema over both knees and left knee with superficial abrasion Psych: Cooperative Results Lab / Micro Data 06/20/25 08:48 06/20/25 08:48 Labs: Laboratory Results - last 24 hr 06/20/25 08:48: WBC 28.5 H, RBC 4.77, Hgb 14.3, Hct 41.5, MCV 87.0, MCH 30.0, MCHC 34.5, RDW Std Deviation 42.5, RDW Coeff of Leslie 13.5, Plt Count 252, MPV 10.6, Immature Gran % (Auto) 1.400 H, Neut % (Auto) 89.2 H, Lymph % (Auto) 3.5 L, [place] % (Auto) 5.6, Eos % (Auto) 0.0, Baso % (Auto) 0.3, Absolute Neuts (auto) 25.4 H, Absolute Lymphs (auto) 0.99, Nucleated RBC % 0, Differential Comment , PT 19.6 H, INR 1.6, APTT 35.6, Sodium 138, Potassium 3.7, Chloride 99, Carbon Dioxide 24.3, Anion Gap 15, BUN 17, Creatinine 0.93, Estim Creat Clear Calc 32.34 L, Est GFR (MDRD) Non-Af 60, BUN/Creatinine Ratio 18.1, Glucose 149 H, Calcium 9.9, Total Bilirubin 2.15 H, Direct Bilirubin 0.85 H, AST 47 H, ALT 19, Alkaline Phosphatase 121 H, Total Creatine Kinase 914 H, Total Protein 7.7, Albumin 4.3, Globulin 3.5 06/20/25 11:01: Urine Color Yellow, Urine Clarity Clear, Urine pH 5.0, Ur Specific Thompson 1.015, Urine Protein 30 H, Urine Glucose (UA) Normal, Urine Ketones 5 H, Urine Occult Blood 150 H, Urine Nitrite Positive H, Urine BilirubinNegative, Urine Urobilinogen Normal, Ur Leukocyte Esterase 100 H, Urine RBC 10-25 SEEN, Urine WBC 0 SEEN, Ur Squamous Epith Cells 0-5 SEEN, Urine Bacteria 1+, Urine Mucus 0 SEEN Imaging Radiology Impression Brain CT 06/20/25 08:47 IMPRESSION: No acute intracranial findings. Chronic findings as described. Reading Location: [facility] Cervical Spine CT 06/20/25 08:48 IMPRESSION: NO ACUTE CERVICAL FRACTURE. DEGENERATIVE CHANGES. Reading Location: [facility] Chest/Abdomen/Pelvis CT 06/20/25 08:48 IMPRESSION: CT chest: 1. No acute thoracic finding. 2. Persistent findings of pulmonary fibrosis, most compatible with IPF. Thoracic lymphadenopathy can be seen with IPF, however correlation with prior examination is recommended if available. CT abdomen/pelvis: 1. No acute abdominopelvic finding. 2. Partially calcified, enhancing right ovarian nodule, which is indeterminate in etiology and may represent benign or malignant pathology. Correlation with nonemergent, routine pelvic ultrasound recommended for further evaluation. Reading Location: [facility] Elbow X-Ray 06/20/25 09:50 IMPRESSION: Osteopenia, no demonstrated fracture or joint space abnormalities Reading Location: [id number] Hip/Pelvis X-Ray 06/20/25 09:50 IMPRESSION: Despite the presence of surgical hardware in the left femur, I suspect there is nonunion of the previously noted intertrochanteric fracture. There is still evidence of fracture lucency and cortical irregularity. No hardware complication noted. 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 Reading Location: [facility] Knee X-Ray 06/20/25 09:50 IMPRESSION: Tricompartmental arthrosis with chondrocalcinosis, no demonstrated acute fracture or suspicious osseous lesion Surgical hardware in the patella from previous ORIF free of complication Reading Location: [id number] Knee X-Ray 06/20/25 09:50 IMPRESSION: DEGENERATIVE OSTEOARTHROSIS. NO ACUTE FINDINGS. Reading Location: [id number] Assessment & Plan Assessment/Plan (1) Fall: (2) Generalized weakness: (3) Abnormal finding on urinalysis: (4) Self-catheterizes urinary bladder: PLAN: Plan #Mechanical fall -Pt reports she was in the bathroom and got up and tripped while using her walker - Does have pain in bilateral knees however patient was scanned no acute process - Supportive care - PT/OT - Case management consult # Abnormal UA in the setting of self-catheterization - UA with nitrates and leuk esterase and bacteria, this is suggestive of UTI andgiven her elevated white blood cell count feel it is reasonable to treat empirically while awaiting urine culture - Continue Rocephin - Will have Lizarraga placed while inpatient #right ovarian nodule -CT w/ Partially calcified, enhancing right ovarian nodule, which is indeterminate in etiology and may represent benign or malignant pathology -Correlation with nonemergent, routine pelvic ultrasound recommended for furtherevaluation #Hypothyroidism -Continue Synthroid #Depression/anxiety -Continue home medications #Dementia -Supportive care -Continue home medications #DVT ppx: Patient chronically on Eliquis Cindy Molina MD Charges/Coding Visit Charges Inpatient E&M: 20180 Init Hosp L2 06/20/25 1665 <Electronically signed by Cindy Molina MD> Cosigner Signature (if applicable): CC: Dr. Dillan Santiago MD; Dr. Cindy Molina MD~ Signed [facility] Work Phone: Hospital Discharge instructionsAmbulatory Orders* Physical Therapy Referral Location: [facility] Work Phone: Hospital Discharge instructionsAdditional Instructions Plenty of fluids and cranberry juice. It appears that she has a UTI. Urine culture was sent. She will be started on antibiotic Keflex 1 pill 4 times a day for 1 week. Follow-up with your doctor if not improving or return if worse.[facility] Work Phone: reason for referral (narrative)No reason for referral information availableWTr[facility] Work Phone: reason for visit Narrative* MRI/CT (Routine) - Closed Specialty Diagnoses / Procedures Referred By Contac t Referred To Contact MR IMAGING Diagnoses Cognitive impairment, mild, so stated Procedures MRI BRAIN W QUANT WO IVCON MRI BRAIN BRAIN STEM W/O CONTRAST MATERIAL Dillan Santiago MD [address] [facility] [place] [address] Phone: tel: fax: [place] [phone] Referral ID Status Reason Start Date Expiration Date V isits Requested Visits Authorized [id number] Closed Auto-Generate d Referral 12/10/2024 01/09/2026 1 1 [facility] Summary Purpose Family History No Family History Records Found Relationship Condition Age at Onset Recorded Date/T aaliyah Not Specified Malignant neoplasm of prostate Unknown Relationship Condition Age at Onset Recorded Date/T aaliyah Not Specified Hypertension Unknown Advance Directives No Advanced Directives Records Found Advance Directive Response Recorded Date/ Time Advance Directives Yes October 6:36am Documents on File Type Date Recorded Patient Renal Dietitian Expl anation Advance Directive(s) 11/24/2024 11:36 AM Documents on File Type Date Recorded Patient Renal Dietitian Expl anation Advance Directive(s) 11/24/2024 11:36 AM Advance Directive Response Recorded Date/ Time Living Will Yes January 17, 2025 7:42pm Do you have a Healthcare Pow er of Jet Blade Polisher? Yes January 17, 2025 7:42pm Name of Medical Power of Jet Blade Polisher MARIBETH REYES January 17, 2025 7:42pm Advance Directive Response Recorded Date/ Time Living Will Yes January 17, 2025 7:42pm Do you have a Healthcare Pow er of Jet Blade Polisher? Yes January 17, 2025 7:42pm Name of Medical Power of Jet Blade Polisher MARIBETH REYES January 17, 2025 7:42pm Living Will No March 01, 2025 3:09pm Do you have a Healthcare Pow er of Jet Blade Polisher? No March 01, 2025 3:09pm Advance Directive Response Recorded Date/ Time Living Will No March 05, 2025 10:51am Do you have a Healthcare Pow er of Jet Blade Polisher? Yes March 05, 2025 10:51am Name of Medical Power of Jet Blade Polisher MARIBETH SHIN, DAUGHTER March 05, 2025 10:51a m Living Will Yes January 17, 2025 7:42pm Do you have a Healthcare Pow er of Jet Blade Polisher? Yes January 17, 2025 7:42pm Name of Medical Power of Jet Blade Polisher MARIBETH SHIN January 17, 2025 7:42pm Living Will No March 01, 2025 3:09pm Do you have a Healthcare Pow er of Jet Blade Polisher? No March 01, 2025 3:09pm Advance Directive Response Recorded Date/ Time Living Will No March 05, 2025 10:51am Do you have a Healthcare Pow er of Jet Blade Polisher? Yes March 05, 2025 10:51am Name of Medical Power of Jet Blade Polisher MARIBETH SHIN, DAUGHTER March 05, 2025 10:51a m Living Will Yes January 17, 2025 7:42pm Do you have a Healthcare Pow er of Jet Blade Polisher? Yes January 17, 2025 7:42pm Name of Medical Power of Jet Blade Polisher MARIBETH SHIN January 17, 2025 7:42pm Living Will No March 01, 2025 3:09pm Do you have a Healthcare Pow er of Jet Blade Polisher? No March 01, 2025 3:09pm Do you have a Healthcare Pow er of Jet Blade Polisher? Yes May 17, 2025 9:33am Advance Directive Response Recorded Date/ Time Living Will No March 05, 2025 10:51am Do you have a Healthcare Pow er of Jet Blade Polisher? Yes March 05, 2025 10:51am Name of Medical Power of Jet Blade Polisher MARIBETH SHIN, DAUGHTER March 05, 2025 10:51am Living Will No March 01, 2025 3:09pm Do you have a Healthcare Pow er of Jet Blade Polisher? No March 01, 2025 3:09pm Do you have a Healthcare Pow er of Jet Blade Polisher? Yes May 17, 2025 9:33am Advance Directive Response Recorded Date/ Time Living Will No March 05, 2025 10:51am Do you have a Healthcare Pow er of Jet Blade Polisher? Yes March 05, 2025 10:51am Name of Medical Power of Jet Blade Polisher MARIBETH SHIN, DAUGHTER March 05, 2025 10:51am Do you have a Healthcare Pow er of Jet Blade Polisher? No June 20, 2025 8:34am Living Will No March 01, 2025 3:09pm Do you have a Healthcare Pow er of Jet Blade Polisher? No March 01, 2025 3:09pm Do you have a Healthcare Pow er of Jet Blade Polisher? Yes May 17, 2025 9:33am Chief Complaint [...] LEFT HIP PAIN W/ INTERTROCHANTERIC FX Ap 2024 3:04pm LT LEG PAIN March 09, [...] 8:4 1am LABWORK March 23, 2025 5:00am CARE HOME LAB WORK March 30, 2025 5:0 0am CARE HOME LAB WORK April 06, 2025 4:0 0am [...] 8:4 1am LABWORK March 23, 2025 5:00am CARE HOME LAB WORK March 30, 2025 5:0 0am CARE HOME LAB WORK April 06, 2025 4:0 0am [...] 5:00am ADMISSION EXAM March 24, 2025 5:00pm CARE HOME LAB WORK March 30, 2025 5:0 0am CARE HOME LAB WORK April 06, 2025 4:0 0am [...] 5:00am ADMISSION EXAM March 24, 2025 5:00pm CARE HOME LAB WORK March 30, 2025 5:0 0am NEW CONCERN March 30, 2025 4:30p m CARE HOME LAB WORK April 06, 2025 4:0 0am [...] 5:00am ADMISSION EXAM March 24, 2025 5:00pm CARE HOME LAB WORK March 30, 2025 5:0 0am NEW CONCERN March 30, 2025 4:30p m CARE HOME LAB WORK April 06, 2025 4:0 0am DISCHARGE EXAM April 17, 2025 1:30p m confusion May 17, 2025 9:31 am Chief [...] 5:00am ADMISSION EXAM March 24, 2025 5:00pm CARE HOME LAB WORK March 30, 2025 5:0 0am NEW CONCERN March 30, 2025 4:30p m CARE HOME LAB WORK April 06, 2025 4:0 0am DISCHARGE EXAM April 17, 2025 1:30p m confusion May 17, 2025 9:31 am FALL AND UTI June 20, 2025 2:2 6pm Reason for Visit Admit Date Acute pain [...] 3:04pm Fall March 04, 2025 3:0 4pm Abnormal finding on urinalysis June 2:26pm Fall June 20, 2025 2:2 6pm Generalized weakness June 20, 2025 2: 26pm Self-catheterizes urinary bladder June 20, 2025 2:26pm Reason for Referral Specialty Diagnoses / Procedures Referred By Contac t Referred To Contact Gerontology Diagnoses Self-catheterizes urinary bladder Balance disorder Concern about memory Anxiety and depression Assistance needed for bathing Ambulates with cane Procedures CONSULT TO GERIATRICS OFFICE/OUTPATIENT NEW [facility] 60 MINUTES Older, ALEX Monge.FAMILY LAW PARALEGAL [address] [place] [address] Referral ID Status Reason Start Date Expiration Date Visits Requested Visits Authorized [id number] Authorized PCP Requested Referral 4 11/05/2025 1 1 Specialty Diagnoses / Procedures Referred By Contac t Referred To Contact Urology Diagnoses Self-catheterizes urinary bladder Unable to void Urinary problem Procedures CONSULT TO UROLOGY OFFICE/OUTPATIENT NEW HIGH MDM 60 MINUTES Older, ALEX Monge.FAMILY LAW PARALEGAL [address] [place] [id number] Referral ID Status Reason Start Date Expiration Date Visits Requested Visits Authorized [id number] Authorized PCP Requested Referral 4 11/05/2025 1 1 Specialty Diagnoses / Procedures Referred By Contac t Referred To Contact MR IMAGING Diagnoses Cognitive impairment, mild, so stated Procedures MRI BRAIN W QUANT WO IVCON MRI BRAIN BRAIN STEM W/O CONTRAST MATERIAL Dillan Santiago MD [address] [id number] [place] [address] Referral ID Status Reason Start Date Expiration Date Visits Requested Visits Authorized [id number] New Request Auto-Generat ed Referral 12/10/2024 01/09/2026 1 1 Additional Source Comments INFORMATION SOURCE (unrecogn ized section and content) DATE CREATED AUTHOR 12/22/2022 [facility] DATE CREATED AUTHOR AUTHOR'S ORGANIZ ATION 01/31/2024 [facility] DATE CREATED AUTHOR AUTHOR'S ORGANIZ ATION 01/26/2025 [facility] DATE CREATED AUTHOR AUTHOR'S ORGANIZ ATION 06/20/2025 [facility] DATE CREATED AUTHOR AUTHOR'S ORGANIZ ATION 06/29/2025 [facility] Care Teams (unrecognized sec tion and content) Team Status: Active Member Role Status Dates Ludin Richey MD Primary Care Provider Active Team Status: Inactive Member Role Status Dates Ludin Richey MD Primary Care Provider Active St art: January 17, 2024 End: January 17, 2024 Ludin Suarez MD Attending Provider Active Start: January 17, 2024 End: January 17, 2024 Business Strategist Relationship Specialty Start Date End Date Dillan Santiago MD [address] [facility] [place] [address] PCP - General Internal Medicine 11/05/24 Business Strategist Relationship Specialty Start Date End Date Dillan Santiago MD [address] [facility] [place] [address] PCP - General Internal Medicine 11/05/24 Business Strategist Relationship Specialty Start Date End Date Dillan Santiago MD [address] [facility] [place] [address] PCP - General Internal Medicine 11/05/24 Business Strategist Relationship Specialty Start Date End Date Dillan Santiago MD [address] [facility] [place] [address] PCP - General Internal Medicine 11/05/24 Business Strategist Relationship Specialty Start Date End Date Dillan Santiago MD [address] [facility] [place] [address] PCP - General Internal Medicine 11/05/24 Business Strategist Relationship Specialty Start Date End Date Dillan Santiago MD [address] [facility] [place] [address] PCP - General Internal Medicine 11/05/24 Business Strategist Relationship Specialty Start Date End Date Dillan Santiago MD [address] [facility] [place] [address] PCP - General Internal Medicine 11/05/24 Business Strategist Relationship Specialty Start Date End Date Dillan Santiago MD [address] [place] [address] PCP - General Internal Medicine 11/05/24 Business Strategist Relationship Specialty Start Date End Date Dillan Santiago MD [address] [place] [address] PCP - General Internal Medicine 11/05/24 Business Strategist Relationship Specialty Start Date End Date Dillan Santiago MD [address] [place] [address] PCP - General Internal Medicine 11/05/24 Business Strategist Relationship Specialty Start Date End Date Dillan Santiago MD [address] [place] [address] PCP - General Internal Medicine 11/05/24 Business Strategist Relationship Specialty Start Date End Date Dillan Santiago MD [address] [place] [address] PCP - General Internal Medicine 11/05/24 Business Strategist Relationship Specialty Start Date End Date Dillan Santiago MD [address] [place] [address] PCP - General Internal Medicine 11/05/24 Mariposa Márquez APRN.CNP [address] [place] [address] Bioinformatics Software Engineer Internal Medicine 01/30/25 Business Strategist Relationship Specialty Start Date End Date Dillan Santiago MD [address] [place] [address] PCP - General Internal Medicine 11/05/24 Mariposa Márquez APRN.FAMILY LAW PARALEGAL [address] [place] [address] Bioinformatics Software Engineer Internal Medicine 01/30/25 Business Strategist Relationship Specialty Start Date End Date Dillan Santiago MD [address] [facility] [place] [address] PCP - General Internal Medicine 11/05/24 Mariposa Márquez APRN.FAMILY LAW PARALEGAL [address] [place] [address] Bioinformatics Software Engineer Internal Medicine 01/30/25 Business Strategist Relationship Specialty Start Date End Date Dillan Santiago MD [address] [facility] [place] [address] PCP - General Internal Medicine 11/05/24 Mariposa Márquez SALES AND SERVICE CHANGE LEADER.FAMILY LAW PARALEGAL [address] [place] [address] Bioinformatics Software Engineer Internal Medicine 01/30/25 Business Strategist Relationship Specialty Start Date End Date Dillan Santiago MD [address] [facility] [place] [address] PCP - General Internal Medicine 11/05/24 Mariposa Márquez, SALES AND SERVICE CHANGE LEADER.FAMILY LAW PARALEGAL [address] [place] [address] Bioinformatics Software Engineer Internal Medicine 01/30/25 Business Strategist Relationship Specialty Start Date End Date Dillan Santiago MD [address] [facility] [place] [address] PCP - General Internal Medicine 11/05/24 Mariposa Márquez APRN.FAMILY LAW PARALEGAL [address] [facility] [place] [address] [facility] Internal [facility] 01/30/25 Team Status: Active Member Role Status [...] Provider Active S tart: March 01, 2025 Business Strategist Relationship Specialty Start Date End Date Dillan Santiago MD [address] [facility] [place] [address] PCP - General Internal Medicine 11/05/24 Mariposa Márquez APRN.FAMILY LAW PARALEGAL [address] [facility] [place] [address] [facility] Internal Medicine 01/30/25 Team Status: Inactive Member Role Status Dates Dr. Dillan Santiago MD Primary Care Provider Active Start: March 01, 2025 End: March 04, 2025 Dr. Guerrero Valerio DO Emergency Provider Active Start: March 01, 2025 End: March 04, 2025 Dr. Roro Long , Admit Provider [...] March 02, 2025 Dr. Roro Long , DO Admit Provider Active Start : March 02, 2025 Dr. Roro Long , DO Other Provider Active Start : March [...] Start: March 03, 2025 Dr. Roro Long , Admit Provider Active Start : March 03, [...] Provider Active S tart: March 09, 2025 Business Strategist Relationship Specialty Start Date End Date Dillan Santiago MD [address] [facility] [place] [address] PCP - General Internal Medicine 11/05/24 Mariposa Márquez APRN.FAMILY LAW PARALEGAL [address] [facility] [place] [address] Bioinformatics Software Engineer Internal Medicine 01/30/25 Business Strategist Relationship Specialty Start Date End Date Dillan Santiago MD [address] [facility] [place] [address] PCP - General Internal Medicine 11/05/24 Mariposa Márquez APRN.FAMILY LAW PARALEGAL [address] [facility] [place] [address] Bioinformatics Software Engineer Internal Medicine 01/30/25 Business Strategist Relationship Specialty Start Date End Date Dillan Santiago MD [address] [place] [address] PCP - General Internal Medicine 11/05/24 Mariposa Márquez APRN.FAMILY LAW PARALEGAL [address] [place] [address] Bioinformatics Software Engineer Internal Medicine 01/30/25 Business Strategist Relationship Specialty Start Date End Date Dillan Santiago MD [address] [place] [address] PCP - General Internal Medicine 11/05/24 Mariposa Márquez APRN.FAMILY LAW PARALEGAL [address] [facility] [place] [address] Bioinformatics Software Engineer Internal Medicine 01/30/25 Business Strategist Relationship Specialty Start Date End Date Dillan Santiago MD [address] [facility] [place] [address] PCP - General Internal Medicine 11/05/24 Mariposa Márquez APRN.FAMILY LAW PARALEGAL [address] [facility] [place] [address] Bioinformatics Software Engineer Internal Medicine 01/30/25 Business Strategist Relationship Specialty Start Date End Date Dillan Santiago MD [address] [place] [address] PCP - General Internal Medicine 11/05/24 Mariposa Márquez APRN.FAMILY LAW PARALEGAL [address] [facility] [place] [address] Bioinformatics Software Engineer Internal Medicine 01/30/25 Business Strategist Relationship Specialty Start Date End Date Dillan Santiago MD [address] [place] [address] PCP - General Internal Medicine 11/05/24 Mariposa Márquez APRN.FAMILY LAW PARALEGAL [address] [facility] [place] [address] Bioinformatics Software Engineer Internal Medicine 01/30/25 Team Status: Inactive Member [...] Referring Provider Active Start: April 06, 2025 Business Strategist Relationship Specialty Start Date End Date Dillan Santiago MD [address] [facility] [place], [place] [address] PCP - General Internal Medicine 11/05/24 Mariposa Márquez APRN.CNP [address] [facility] [place], [place] [address] Bioinformatics Software Engineer Internal Medicine 01/30/25 Business Strategist Relationship Specialty Start Date End Date Dillan Santiago MD [address] [facility] [place] [address] PCP - General Internal Medicine 11/05/24 Mariposa Márquez APRN.FAMILY LAW PARALEGAL [address] [place] [address] Bioinformatics Software Engineer Internal Medicine 01/30/25 Business Strategist Relationship Specialty Start Date End Date Dillan Santiago MD [address] [facility] [place] [address] PCP - General Internal Medicine 11/05/24 Mariposa Márquez APRN.FAMILY LAW PARALEGAL [address] [facility] [place] [address] Bioinformatics Software Engineer Internal Medicine 01/30/25 Business Strategist Relationship Specialty Start Date End Date Dillan Santiago MD [address] [facility] [place] [address] PCP - General Internal Medicine 11/05/24 Mariposa Márquez APRN.FAMILY LAW PARALEGAL [address] [facility] [place] [address] Bioinformatics Software Engineer Internal Medicine 01/30/25 Business Strategist Relationship Specialty Start Date End Date Dillan Santiago MD [address] [facility] [place] [address] PCP - General Internal Medicine 11/05/24 Mariposa Márquez APRN.FAMILY LAW PARALEGAL [address] [facility] [place] [address] Bioinformatics Software Engineer Internal Medicine 01/30/25 Team Status: Active Member Role/Relationship Status Dates Dr. Dillan Santiago MD Primary Care Provider Active Team Status: Inactive Member Role/Relationship Status Dates Dr. Vadim Florence DO Attending Provider Active Start: January 17, 2025 End: January 17, 2025 Dr. Vadim Florence , Emergency Provider Active Start: January 17, 2025 [...] 30, 2025 End: March 30, 2025 Daya MEEHAN NP-Keron Attending Provider Active Start: March 30, 2025 [...] May 17, 2025 End: May 17, 2025 Business Strategist Relationship Specialty Start Date End Date Dillan Santiago MD [address] [place] [address] PCP - General Internal Medicine 11/05/24 Mariposa Márquez APRN.[employer] [address] [place] [address] Bioinformatics Software Engineer Internal Medicine 01/30/25 Team Status: Inactive Member Role/Relationship Status Dates Dr. Dillan Santiago MD Primary Care Provider Active Start: March 01, 2025 End: March 04, 2025 Dr. Guerrero Valerio DO Emergency Provider Active Start: March 01, 2025 End: March 04, 2025 Dr. Roro Long , Admit Provider [...] : March 02, 2025 Dr. Roro Long , Other Provider Active Start : March 02, [...] 2025 End: March 30, 2025 Daya Morgan TOGGLER, TOGGLER-C Attending Provider Active Start: March 30, 2025 [...] End: April 17, 2025 Daya Morgan NP, TOGGLER-C Attending Provider Active Start: April 17, 2025 [...] May 17, 2025 End: May 17, 2025 Business Strategist Relationship Specialty Start Date End Date Dillan Santiago MD [address] [place] [address] PCP - General Internal Medicine 11/05/24 Mariposa Márquez APRN.ARIEL [address] [place] [address] Bioinformatics Software Engineer Internal Medicine 01/30/25 Business Strategist Relationship Specialty Start Date End Date Dillan Santiago MD [address] [place] [address] PCP - General Internal Medicine 11/05/24 Older, ALEX Monge.[employer] [address] [facility] [place] [address] Bioinformatics Software Engineer Internal Medicine 01/30/25 Team Status: Active Member Role/Relationship Status Dates Dr. Dillan Santiago MD Primary Care Provider Active Start: June 20, 2025 Dr. Wesley Jones DO Emergency Provider Active Start: June 20, 2025 Dr. Cindy Molina MD Admit Provider Active Star t: June 20, 2025 Dr. iCndy Molina MD Attending Provider Active Start: June 20, 2025 Dr. Cindy Molina MD Other Provider Active Star t: June 20, 2025 Goals (unrecognized section and content) Goals may [...] or prosecute any alcohol or drug abuse patient.[facility] Hospital[facility] the event this information is protected by the Federal Confidentiality of Alcohol and Drug Abuse Patient Records regulations: The Federal rules restrict any use of the information to criminally investigate or prosecute any alcohol or drug abuse patient.[facility] HospitalIn the event this information is protected by the Federal Confidentiality of Alcohol and Drug Abuse Patient Records regulations: The Federal rules restrict any use of the information to criminally investigate or prosecute any alcohol or drug abuse patient.[facility] HospitalIn the event this information is protected by the Federal Confidentiality of Alcohol and Drug Abuse Patient Records regulations: The Federal rules restrict any use of the information to criminally investigate or prosecute any alcohol or drug abuse patient.[facility] HospitalIn the event this information is protected by the Federal Confidentiality of Alcohol and Drug Abuse Patient Records regulations: The Federal rules restrict any use of the information to criminally investigate or prosecute any alcohol or drug abuse patient.[facility] HospitalIn the event this information is protected by the Federal Confidentiality of Alcohol and Drug Abuse Patient Records regulations: The Federal rules restrict any use of the information to criminally investigate or prosecute any alcohol or drug abuse patient.[facility] HospitalIn the event this information is protected by the Federal Confidentiality of Alcohol and Drug Abuse Patient Records regulations: The Federal rules restrict any use of the information to criminally investigate or prosecute any alcohol or drug abuse patient.[facility] HospitalIn the event this information is protected by the Federal Confidentiality of Alcohol and Drug Abuse Patient Records regulations: The Federal rules restrict any use of the information to criminally investigate or prosecute any alcohol or drug abuse patient.[facility] HospitalIn the event this information is protected by the Federal Confidentiality of Alcohol and Drug Abuse Patient Records regulations: The Federal rules restrict any use of the information to criminally investigate or prosecute any alcohol or drug abuse patient.[facility] HospitalIn the event this information is protected by the Federal Confidentiality of Alcohol and Drug Abuse Patient Records regulations: The Federal rules restrict any use of the information to criminally investigate or prosecute any alcohol or drug abuse patient.[facility] HospitalIn the event this information is protected by the Federal Confidentiality of Alcohol and Drug Abuse Patient Records regulations: The Federal rules restrict any use of the information to criminally investigate or prosecute any alcohol or drug abuse patient.[facility] HospitalIn the event this information is protected by the Federal Confidentiality of Alcohol and Drug Abuse Patient Records regulations: The Federal rules restrict any use of the information to criminally investigate or prosecute any alcohol or drug abuse patient.[facility] HospitalIn the event this information is protected by the Federal Confidentiality of Alcohol and Drug Abuse Patient Records regulations: The Federal rules restrict any use of the information to criminally investigate or prosecute any alcohol or drug abuse patient.[facility] HospitalIn the event this information is protected by the Federal Confidentiality of Alcohol and Drug Abuse Patient Records regulations: The Federal rules restrict any use of the information to criminally investigate or prosecute any alcohol or drug abuse patient.[facility] HospitalIn the event this information is protected by the Federal Confidentiality of Alcohol and Drug Abuse Patient Records regulations: The Federal rules restrict any use of the information to criminally investigate or prosecute any alcohol or drug abuse patient.[facility] HospitalIn the event this information is protected by the Federal Confidentiality of Alcohol and Drug Abuse Patient Records regulations: The Federal rules restrict any use of the information to criminally investigate or prosecute any alcohol or drug abuse patient.[facility] HospitalIn the event this information is protected by the Federal Confidentiality of Alcohol and Drug Abuse Patient Records regulations: The Federal rules restrict any use of the information to criminally investigate or prosecute any alcohol or drug abuse patient.[facility] HospitalIn the event this information is protected by the Federal Confidentiality of Alcohol and Drug Abuse Patient Records regulations: The Federal rules restrict any use of the information to criminally investigate or prosecute any alcohol or drug abuse patient.[facility] HospitalIn the event this information is protected by the Federal Confidentiality of Alcohol and Drug Abuse Patient Records regulations: The Federal rules restrict any use of the information to criminally investigate or prosecute any alcohol or drug abuse patient.[facility] HospitalIn the event this information is protected by the Federal Confidentiality of Alcohol and Drug Abuse Patient Records regulations: The Federal rules restrict any use of the information to criminally investigate or prosecute any alcohol or drug abuse patient.[facility] HospitalIn the event this information is protected by the Federal Confidentiality of Alcohol and Drug Abuse Patient Records regulations: The Federal rules restrict any use of the information to criminally investigate or prosecute any alcohol or drug abuse patient.[facility] HospitalIn the event this information is protected by the Federal Confidentiality of Alcohol and Drug Abuse Patient Records regulations: The Federal rules restrict any use of the information to criminally investigate or prosecute any alcohol or drug abuse patient.[facility] HospitalIn the event this information is protected by the Federal Confidentiality of Alcohol and Drug Abuse Patient Records regulations: The Federal rules restrict any use of the information to criminally investigate or prosecute any alcohol or drug abuse patient.[facility] HospitalIn the event this information is protected by the Federal Confidentiality of Alcohol and Drug Abuse Patient Records regulations: The Federal rules restrict any use of the information to criminally investigate or prosecute any alcohol or drug abuse patient.[facility] HospitalIn the event this information is protected by the Federal Confidentiality of Alcohol and Drug Abuse Patient Records regulations: The Federal rules restrict any use of the information to criminally investigate or prosecute any alcohol or drug abuse patient.[facility] HospitalIn the event this information is protected by the Federal Confidentiality of Alcohol and Drug Abuse Patient Records regulations: The Federal rules restrict any use of the information to criminally investigate or prosecute any alcohol or drug abuse patient.[facility] HospitalIn the event this information is protected by the Federal Confidentiality of Alcohol and Drug Abuse Patient Records regulations: The Federal rules restrict any use of the information to criminally investigate or prosecute any alcohol or drug abuse patient.[facility] HospitalIn the event this information is protected by the Federal Confidentiality of Alcohol and Drug Abuse Patient Records regulations: The Federal rules restrict any use of the information to criminally investigate or prosecute any alcohol or drug abuse patient.[facility] HospitalIn the event this information is protected by the Federal Confidentiality of Alcohol and Drug Abuse Patient Records regulations: The Federal rules restrict any use of the information to criminally investigate or prosecute any alcohol or drug abuse patient.[facility] HospitalIn the event this information is protected by the Federal Confidentiality of Alcohol and Drug Abuse Patient Records regulations: The Federal rules restrict any use of the information to criminally investigate or prosecute any alcohol or drug abuse patient.[facility] HospitalIn the event this information is protected by the Federal Confidentiality of Alcohol and Drug Abuse Patient Records regulations: The Federal rules restrict any use of the information to criminally investigate or prosecute any alcohol or drug abuse patient.[facility] HospitalIn the event this information is protected by the Federal Confidentiality of Alcohol and Drug Abuse Patient Records regulations: The Federal rules restrict any use of the information to criminally investigate or prosecute any alcohol or drug abuse patient.[facility] HospitalIn the event this information is protected by the Federal Confidentiality of Alcohol and Drug Abuse Patient Records regulations: The Federal rules restrict any use of the information to criminally investigate or prosecute any alcohol or drug abuse patient.[facility] HospitalIn the event this information is protected by the Federal Confidentiality of Alcohol and Drug Abuse Patient Records regulations: The Federal rules restrict any use of the information to criminally investigate or prosecute any alcohol or drug abuse patient.[facility] HospitalIn the event this information is protected by the Federal Confidentiality of Alcohol and Drug Abuse Patient Records regulations: The Federal rules restrict any use of the information to criminally investigate or prosecute any alcohol or drug abuse patient.[facility] HospitalIn the event this information is protected by the Federal Confidentiality of Alcohol and Drug Abuse Patient Records regulations: The Federal rules restrict any use of the information to criminally investigate or prosecute any alcohol or drug abuse patient.[facility] HospitalIn the event this information is protected by the Federal Confidentiality of Alcohol and Drug Abuse Patient Records regulations: The Federal rules restrict any use of the information to criminally investigate or prosecute any alcohol or drug abuse patient.[facility] HospitalIn the event this information is protected by the Federal Confidentiality of Alcohol and Drug Abuse Patient Records regulations: The Federal rules restrict any use of the information to criminally investigate or prosecute any alcohol or drug abuse patient.[facility] HospitalIn the event this information is protected by the Federal Confidentiality of Alcohol and Drug Abuse Patient Records regulations: The Federal rules restrict any use of the information to criminally investigate or prosecute any alcohol or drug abuse patient.[facility] HospitalIn the event this information is protected by the Federal Confidentiality of Alcohol and Drug Abuse Patient Records regulations: The Federal rules restrict any use of the information to criminally investigate or prosecute any alcohol or drug abuse patient.[facility] HospitalIn the event this information is protected by the Federal Confidentiality of Alcohol and Drug Abuse Patient Records regulations: The Federal rules restrict any use of the information to criminally investigate or prosecute any alcohol or drug abuse patient.[facility] HospitalIn the event this information is protected by the Federal Confidentiality of Alcohol and Drug Abuse Patient Records regulations: The Federal rules restrict any use of the information to criminally investigate or prosecute any alcohol or drug abuse patient.[facility] HospitalIn the event this information is protected by the Federal Confidentiality of Alcohol and Drug Abuse Patient Records regulations: The Federal rules restrict any use of the information to criminally investigate or prosecute any alcohol or drug abuse patient.[facility] HospitalIn the event this information is protected by the Federal Confidentiality of Alcohol and Drug Abuse Patient Records regulations: The Federal rules restrict any use of the information to criminally investigate or prosecute any alcohol or drug abuse patient.[facility] HospitalIn the event this information is protected by the Federal Confidentiality of Alcohol and Drug Abuse Patient Records regulations: The Federal rules restrict any use of the information to criminally investigate or prosecute any alcohol or drug abuse patient.[facility] HospitalIn the event this information is protected by the Federal Confidentiality of Alcohol and Drug Abuse Patient Records regulations: The Federal rules restrict any use of the information to criminally investigate or prosecute any alcohol or drug abuse patient.[facility] HospitalIn the event this information is protected by the Federal Confidentiality of Alcohol and Drug Abuse Patient Records regulations: The Federal rules restrict any use of the information to criminally investigate or prosecute any alcohol or drug abuse patient.[facility] HospitalIn the event this information is protected by the Federal Confidentiality of Alcohol and Drug Abuse Patient Records regulations: The Federal rules restrict any use of the information to criminally investigate or prosecute any alcohol or drug abuse patient.[facility] HospitalIn the event this information is protected by the Federal Confidentiality of Alcohol and Drug Abuse Patient Records regulations: The Federal rules restrict any use of the information to criminally investigate or prosecute any alcohol or drug abuse patient.[facility] HospitalIn the event this information is protected by the Federal Confidentiality of Alcohol and Drug Abuse Patient Records regulations: The Federal rules restrict any use of the information to criminally investigate or prosecute any alcohol or drug abuse patient.[facility] HospitalIn the event this information is protected by the Federal Confidentiality of Alcohol and Drug Abuse Patient Records regulations: The Federal rules restrict any use of the information to criminally investigate or prosecute any alcohol or drug abuse patient.[facility] HospitalIn the event this information is protected by the Federal Confidentiality of Alcohol and Drug Abuse Patient Records regulations: The Federal rules restrict any use of the information to criminally investigate or prosecute any alcohol or drug abuse patient.[facility] Reason for Visit (unrecogniz ed section [...] GERIATRICS OFFICE/OUTPATIENT NEW HIGH MDM 60 MINUTES Older, ALEX Monge.[employer] [address] [place] [address] Referral ID Status Reason Start Date Expiration Date V isits Requested Visits Authorized [id number] Closed PCP Requested Referral 11/05/2024 11/05/2025 1 [...] NEW HIGH MDM 60 MINUTES Older, ALEX Monge.[employer] [address] [place] [address] Referral ID Status Reason Start Date Expiration Date V isits Requested Visits Authorized [id number] Closed PCP Requested Referral 11/05/2024 11/05/2025 1 1 Reason Comments Request Outside Medical Records Reason Onset Date Comments Refill Request 12/31/2024 Reason Onset Date Comments Refill Request 01/21/2025 Reason Onset Date Comments Refill Request 01/26/2025 Reason Onset Date Comments Refill Request 02/02/2025 Reason Comments Follow Up 01/24/25 MRI review re Leonardo serrano not a good fit per patient Reason Comments Recheck Follow up Reason Comments Urinary Problem Brain fog, 1 day Reason Comments Clinical Update Reason Onset Date Comments Refill Request 02/24/2025 Reason Onset Date Comments Results 01/28/2025 Reason Comments Follow HH Reason Comments ER F/U [facility] 03/01/25 fall-lef t hip FX; 03/02/25 Left hip cephalomedullary nail fixation, 03/04/25 transferred to [facility] for rehabilitation, 03/19/25 transferred to [place] for continuing rehabilitation Reason Comments Patient Update [...] BE BASED ON THE PRIMARY CLINICAL RECORDS. [employer] provides no warranty or guarantee of the accuracy or completeness of information in this document.
[2025-06-30 07:39] LABS: Hematocrit 32.8 % (37-47); Hemoglobin 11.0 g/dL (12.0-15.0); Mean Corp Hgb Conc 33.5 g/dL (32-36); Mean Corpuscular Volume 88.4 fL (81-99); Mean Platelet Vol. 9.9 fl (6.2-12.0); Platelet Count 229 K/mm3 (150-450); RBC Distribution Width CV 13.6 % (11.6-14.6); RBC Distribution Width SD 43.3 fl (35.1-43.9); Red Blood Count 3.71 M/mm3 (4.2-5.4); White Blood Count 13.1 K/mm3 (4.4-11.0)
[2025-06-30 08:03] LABS: Anion Gap 8 (5-15); BUN 15 mg/dL (4-19); BUN/Creat Ratio 24.1 RATIO (10-20); Calcium,Total 8.8 mg/dL (7.6-11.0); Carbon Dioxide 28.9 mmol/L (21.0-32.0); Chloride 103 mmol/L (98-108); Glucose 95 mg/dL (70-99); Potassium 3.7 mmol/L (3.3-5.1); T4 Total, Thyroxin 6.4 ug/dL (4.8-13.9)
== END ==
LOC: OLS.SW 04:00
PROVIDERS: PCP Internal Medicine; Referring Provider Family Medicine; Visit Provider Family Medicine
DX: N30.00 Acute cystitis without hematuria (principal); E03.9 Hypothyroidism, unspecified; E43 Unspecified severe protein-calorie malnutrition
CPT/HCPCS: 36415; 80048; 84436; 84443; 85027

== ENCOUNTER 2025-07-31 18:06 | Emergency (ER) | payer MEDICARE, SELFPAY ==
[2025-07-31 18:08] VITALS: BP 124/59; PULSE 66; RESP 18; TEMP 36.9; O2SAT 97
[2025-07-31 20:39] VITALS: BP 112/70; PULSE 60; O2SAT 100; BMI 23.1
--- OUTSIDE RECORDS SUMMARY | 2025-07-31 21:07 | XMS RPT_ITS | CCD ---
Author Organization [facility] Care Team Providers Care Training Administrator Name Role Phone Ludin Suarez Attending Unavailable Ludin Suarez Attending Unavailable Ludin Suarez Attending Unavailable Ludin Suarez Referring Unavailable Jeremy DELACRUZ, Dillan Primary Care Provider DILLAN SANTIAGO Referring Unavailable DILLAN SANTIAGO Primary Care Unavailable Older STEEL MANAGER.OCEAN EXPORT COORDINATOR, Mariposa Unavailable Dr. Vadim Florence DO Attending [...] Gusman MD Attending Provider Unavaila moraima Morgan ROLLING MACHINE TENDER-C, Daya Attending Provider Adele Gusman MD Referring Provider Unavaila moraima Darby MD, Dr. Lane Emergency Provider Jeremy DELACRUZ, Dr. Worrell Primary Care Provider Naseem DELACRUZ, Dr. Angulo Attending Provider Wilnre DELACRUZ, Dr. Lane Attending Provider Eddie ROLLING MACHINE TENDER-C, Daya Attending Provider Karen PRICE, Dr. Olson Emergency Provider Jesse DELACRUZ, Dr. White Admit Provider Jesse DELACRUZ, Dr. White Attending Provider GANTA, DILLAN Primary Care Unavailable GANTA, DILLAN [...] , DR DILLAN Cabrales Attending Unavailabl e DR DILLAN SANTIAGO MD Primary Care Unavailabl e Ganta, Dillan Primary Care Unavailable Cindy Molina Attending Unavailable Cindy Molina Admitting Unavailable Cindy Molina Consulting Unavailable Koram, Allison Lyn Attending Unavailable Ganta, Dillan Primary Care Unavailable Roro Long Admitting Unavailable Spittle, [place] Consulting Unavailable Ethan Roro Consulting Unavailable Koram, Allison Lyn Consulting Unavailable Bill Vieira Attending Unavailable Bill Vieira Consulting Unavailable Shanekae SHEFALI, Efewongbe Attending [facility] Unavailable [facility] Primary Care Unavailable Srinath, Garfield Chi Attending Unavailable Srinath, Garfield Chi Referring Unavailable Domingo Darby Attending Unavailable [facility] Primary Care Unavailable [facility] Primary Care Unavailable Naseem Efewongbe Attending Unavailable Roro Long Attending Unavailable Vadim Florence Attending Unavailable [facility] Primary Care Unavailable Oleghe OLS, Efewongbe Attending Unavailabl e Oleghe OLS, Efewongbe Referring [facility] Primary Care Unavailable [facility] Primary Care Unavailable Daya Head Attending Unavailable Roro Long Admitting Unavailable Koram, Allison Lyn Attending Unavailable [facility] Primary Care Unavailable Linus Rosasolas Consulting Unavailable Mp Longyn Consulting Unavailable Cindy Molina Consulting Unavailable [facility] Primary Care Unavailable Bill iVeira Attending Unavailable Jesse Cindy Admitting Unavailable [facility] Primary Care Unavailable Srinath, Garfield Chi Admitting Unavailable Srinath, Garfield Chi Attending Unavailable [facility] Referring Unavailable [facility] Primary Care Unavailable Lisa Lobato NP Attending Unavailable Tanvir Grossman Attending Unavailable Tanvir Grossman Referring Unavailable [facility] Primary Care Unavailable Vadim Estrada Attending Unavailable [facility] Primary Care Unavailable Srinath, Garfield Chi Referring Unavailable Vadim Estrada Attending Unavailable [facility] Primary Care Unavailable Bill Vieira Referring Unavailable Eddie ROLLING MACHINE TENDERDaya Attending Unavailable [facility] Primary Care Unavailable Eddie ROLLING MACHINE TENDERDaya Attending Unavailable [facility] Primary Care Unavailable Medications Current Medications Medication Drug Class(es) [...] HOURS as needed for pain 30 1 Anabel 16th, 2025 12:00am March 16, 2025 8:16pm amLODIPine (1 source) Dihydropyridine Calcium Channel Deshawn Start: 10-29-2019 amLODIPine Active October 29, 2019 12:00am apixaban 5 mg oral tablet (20 sources) Factor Xa Inhibitor Start: 03-16-2025 End: [...] Active busPIRone hydrochloride 5 mg oral tablet (20 sources) Start: 05-06-2025 take 1 tablet by mouth twice daily busPIRone (BUSPAR) 5 mg tablet Take 1 tablet by mouth two times a day. 60 tablet 3 05/06/2025 Active Catheter (SELF-CATHETER, FEMALE) 14 Fr misc (20 sources) Catheter (SELF-CATHETER, FEMALE) 14 Fr misc Self catheterizes four times daily Active cholecalciferol 0.125 mg oral capsule (1 source) Vitamin D Start: 06-20-2025 take 1 capsule by mouth once daily Cholecalciferol (Vitamin D3) 125 mcg (5,000 unit) capsule Active 125 ug PO DAILY June 20, 2025 12:00am citalopram 20 mg oral tablet (20 sources) Serotonin Reuptake Inhibitor Start: 04-20-2025 take [...] pm pretty routinely Start: 03-16-2025 End: 05-04-2025 Clonazepam 0.5 mg tablet Discontinued 0.25 mg PO 0600 7 14 0 April 20, 2025 6:14am May 03, 2025 12:00am May 04, 2025 12:07am Start: 01-31-2025 End: 08-14-2025 take 1 tablet by mouth three times daily as needed for anxiety clonazePAM (KLONOPIN) 0.5 mg tablet Indications: Anxiety and depression Take 1 tablet by mouth three times a day as needed for anxiety for up to 30 days. 45 tablet 07/15/2025 08/14/2025 Active Start: 01-31-2025 End: 01-26-2025 take 1 [...] Discontinued docusate sodium 50 mg / sennosides, alf 8.6 mg oral tablet (6 sources) Start: [...] 12:00am anxiety furosemide 20 mg oral tablet (20 sources) Loop Diuretic Start: 05-06-2025 End: 07-17-2025 furosemide (LASIX) 20 mg tablet Indications: Acute heart failure, unspecified heart failure type (HCC) Please give her Sunday and in the morning. Or if her weight increases by 3 pounds on any given day, give one pill on that day 30 tablet 3 07/17/2025 Active levothyroxine sodium 0.05 mg oral tablet (20 sources) l-Thyroxine Start: 07-17-2025 take 1 tablet by mouth once daily levothyroxine (EUTHYROX) 50 mcg tablet Indications: Hypothyroidism, unspecified type Take 1 tablet by mouth once daily. 90 tablet 3 07/17/2025 Active Start: 11-06-2024 End: 07-15-2025 take 1 tablet by mouth once daily levothyroxine (EUTHYROX) 50 mcg tablet Indications: Hypothyroidism, unspecified type Take 1 tablet by mouth once daily. 90 tablet 3 11/06/2024 07/15/2025 Discontinued Start: 11-05-2024 End: 11-06-2024 take 1 capsule by mouth once daily before breakfast levothyroxine 50 mcg cap Indications: Hypothyroidism, unspecified type Take 1 capsule by mouth daily before breakfast. 90 capsule 3 11/05/2024 11/06/2024 Discontinued Start: 10-29-2019 Synthroid Acti ve October 29, 2019 12:00am sodium chloride 0.154 meq/ml irrigation solution (20 sources) Start: 05-06-2025 sodium chlorid e 0.9 % IRRIGATION Indications: Urine retention Irrigate 60 mL as instructed once daily as needed. 2000 mL 3 05/06/2025 Active traZODone hydrochloride 50 mg oral tablet (20 sources) Serotonin Reuptake Inhibitor Start: 07-17-2025 take 1 tablet by mouth once daily at bedtime traZODone (DESYREL) 50 mg tablet Indications: Anxiety and depression Take 1 tablet by mouth daily at bedtime. 90 tablet 3 07/17/2025 Active Start: 11-05-2024 End: 04-20-2025 take 1 tablet by mouth at bedtime Trazodone 50 mg tabl et Active 50 mg PO AT BEDTIME March [...] 17, 2025 1:00am March 01, 2025 12:29pm Friona Red (1 source) Start: 10-29-2019 End: 01-17-2024 Friona Red Discontinued October 29, 2019 12:00am January [...] Documented Da te Episodic/Chronic Acquired foot deformities (17 sources) Acquired deformity of toe; Translations: [Acquired deformities of toe(s), unspecified, unspecified foot] Onset: 06-03-2025 06-03-2025 Episodic Anxiety disorders (20 sources) Mixed anxiety and depressive disorder; Translations: [Anxiety disorder, unspecified] Onset: 06-03-2025 11-05-2024 Chronic Chronic ulcer of skin (20 sources) Pressure ulcer of sacral region, unstageable; Translations: [Pressure ulcer, lower back] Onset: 04-17-2025 04-17-2025 Chronic Congestive heart failure; nonhypertensive (5 sources) Acute heart failure; Translations: [Heart failure, unspecified] Onset: 05-06-2025 05-06-2025 Chronic Delirium, dementia, and amnestic and other cognitive disorders (20 sources) Presenile dementia; 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] Onset: 04-17-2025 02-04-2025 Chronic Diabetes mellitus without complication (2 sources) Prediabetes; Translations: [Prediabetes] Onset: 05-06-2025 05-06-2025 Episodic Diseases of white blood cells (4 sources) Lymphocytosis; Translations: [Lymphocytosis (symptomatic)] Onset: 07-17-2025 07-17-2025 Chronic E Codes: Fall (20 sources) Fall; Translations: [Unspecified fall, initial encounter] Onset: 06-28-2025 03-01-2025 Episodic Essential hypertension (2 sources) Essential (primary) hypertension; Translations: [Essential (primary) hypertension] Onset: 04-22-2025 Chronic Genitourinary symptoms and ill-defined conditions (20 sources) Urinary catheter in situ; Translations: [Presence of urogenital implants] Onset: 04-17-2025 04-17-2025 Chronic Genitourinary symptoms and ill-defined conditions (20 sources) Unable to void urine; Translations: [Retention of urine, unspecified] Onset: 12-23-2024 11-05-2024 Episodic Malaise and fatigue (18 sources) Asthenia; Translations: [Other malaise] Onset: 06-28-2025 03-04-2025 Episodic Miscellaneous mental health disorders (1 source) Insomnia disorder related to another mental disorder; Translations: [Insomnia due to other mental disorder] 02-04-2025 Chronic Mood disorders (14 sources) Depressive disorder; Translations: [Depression] 03-04-2025 Chronic Mood disorders (1 source) Mood disorders; Translations: [Anxiety and depression] Onset: 06-03-2025 Mycoses (6 sources) Onychomycosis; Translations: [Tinea unguium] Onset: 06-03-2025 04-24-2025 Episodic Nutritional deficiencies (2 sources) Undernutrition; Translations: [Unspecified protein-calorie malnutrition] Onset: 07-23-2025 04-17-2025 Chronic Osteoarthritis (2 sources) Bilateral osteoarthritis of knees; Translations: [Bilateral primary osteoarthritis of knee] 01-17-2024 Chronic Other aftercare (1 source) Long-term current use of anticoagulant; Translations: [detention (current) use of anticoagulants] 04-17-2025 Episodic Other circulatory disease (5 sources) H/O: hypertension; Translations: [Personal history of other diseases of the circulatory system] 05-17-2025 Episodic Other connective tissue disease (20 sources) History of repair of hip joint; Translations: [Presence of unspecified artificial hip joint] Onset: 04-17-2025 04-17-2025 Chronic Other connective tissue disease (1 source) Presence of unspecified artificial hip joint; Translations: [S/P hip hemiarthroplasty] Onset: 04-17-2025 Chronic Other connective tissue disease (2 sources) Recurrent falls ; Translations: [Repeated falls] 07-17-2025 Episodic Other connective tissue disease (1 source) Repeated falls; Translations: [Recurrent falls] Onset: 07-17-2025 Episodic Other ear and sense organ disorders (2 sources) Impacted cerumen in right ear; Translations: [Impacted cerumen, right ear] 02-04-2025 Episodic Other gastrointestinal disorders (1 source) Full incontinence of feces; Translations: [Full incontinence of feces] Onset: 07-29-2025 Episodic Other hereditary and degenerative nervous system conditions (2 sources) Impaired cognition; Translations: [Mild cognitive impairment, so stated] 12-10-2024 Chronic Other hereditary and degenerative nervous system conditions (2 sources) Mild cognitive impairment, so stated; Translations: [Cognitive impairment, mild, so stated] Onset: 12-10-2024 Chronic Other nervous system disorders (20 sources) Walking disability; Translations: [Difficulty in walking, not elsewhere classified] Onset: 04-17-2025 01-13-2025 Chronic Other nervous system disorders (1 source) Difficulty in walking, not elsewhere classified; Translations: [Ambulatory dysfunction] Onset: 04-17-2025 Chronic Other nervous system disorders (1 source) Impaired cognition 01-24-2025 Episodic Other skin disorders (2 sources) Thickened nails; Translations: [Onychogryphosis] 06-03-2025 Episodic Other skin disorders (2 sources) Ingrowing toenail; Translations: [Ingrowing nail] 06-03-2025 Episodic Other skin disorders (1 source) Onychogryphosis; Translations: [Thickened nail] Onset: 06-03-2025 Episodic Other skin disorders (1 source) Ingrowing nail; Translations: [IGTN (ingrowing toe nail)] Onset: 06-03-2025 Episodic Phlebitis; thrombophlebitis and thromboembolism (2 sources) Acute deep vein thrombosis of lower limb; Translations: [Acute embolism and thrombosis of unspecified deep veins of left proximal lower extremity] 04-17-2025 Episodic Residual codes; unclassified (3 sources) Dependence on other enabling machines and devices; Translations: [Dependence on other enabling machines] Onset: 11-05-2024 11-05-2024 Chronic Residual codes; unclassified (7 sources) Finding related to ability to manage personal health care; Translations: [Other specified health status] 11-05-2024 Episodic Residual codes; unclassified (15 sources) Insomnia; Translations: [Insomnia, unspecified] 03-04-2025 Episodic Residual codes; unclassified (1 source) Edema; Translations: [Edema, unspecified] 05-06-2025 Episodic Residual codes; unclassified (1 source) Urinary catheter in situ; Translations: [Presence of other specified devices] 07-17-2025 Episodic Residual codes; unclassified (1 source) Presence of other specified devices; Translations: [Chronic indwelling Lizarraga catheter] Onset: 07-17-2025 Episodic Residual codes; unclassified (2 sources) Other specified health status; Translations: [Self-catheterizes urinary bladder] Onset: 12-23-2024 Episodic Residual codes; unclassified (1 source) Disorientation, unspecified; Translations: [Disorientation, unspecified] Onset: 05-20-2025 Episodic Screening and history of mental health and substance abuse codes (5 sources) H/O: dementia; Translations: [Personal history of other mental and behavioral disorders] 05-17-2025 Episodic Thyroid disorders (20 sources) Hypothyroidism; Translations: [Hypothyroidism, unspecified] Onset: 11-05-2024 11-05-2024 Chronic Unclassified (1 source) Finding related to ability to manage personal health care 06-03-2025 Unclassified (1 source) 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); Translations: [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)] Onset: 04-17-2025 Unclassified (2 sources) Acute embolism and thrombosis of left peroneal vein; Translations: [Acute embolism and thrombosis of left peroneal vein] Onset: 04-22-2025 Urinary tract infections (20 sources) Recurrent urinary tract infection; Translations: [Urinary tract infection, site not specified] Onset: 06-03-2025 02-19-2025 Episodic Past or Other Problems Problem Classification Problem Date Documented Date Episodic/Chronic Administrative/socia l admission (8 sources) First encounter by subject; Translations: [Persons encountering health services in other specified circumstances] Onset: 11-05-2024 11-05-2024 Episodic Fracture of neck of femur (hip) (20 sources) Closed intertrochanteric fracture; Translations: [Displaced intertrochanteric fracture of left femur, initial encounter for closed fracture] Onset: 03-09-2025 03-01-2025 Episodic Other aftercare (1 source) Encounter for other orthopedic aftercare; Translations: [Encounter for other orthopedic aftercare] Onset: 04-22-2025 Episodic Other connective tissue disease (20 sources) Other symptoms and signs involving the musculoskeletal system; Translations: [Other musculoskeletal symptoms referable to limbs] Onset: 04-17-2025 04-17-2025 Episodic Other connective tissue disease (1 source) Pain in left lower leg; Translations: [Pain in left lower leg] Onset: 03-12-2025 Episodic Other nervous system disorders (20 sources) Impairment of balance; Translations: [Other abnormalities of gait and mobility] Onset: 04-17-2025 11-05-2024 Episodic Other nervous system disorders (1 source) Other abnormalities of gait and mobility; Translations: [Balance disorder] Onset: 04-17-2025 Episodic Other non-traumatic joint disorders (20 sources) Pain in left knee; Translations: [Left knee pain] Onset: 04-22-2025 01-16-2024 Episodic Other screening for suspected conditions (not mental disorders or infectious disease) (2 sources) Patient encounter status; Translations: [Encounter for screening for lipoid disorders] Onset: 11-05-2024 11-05-2024 Episodic Results Test Name Value Interpretation Reference Range Facility [facility] 07-27-2025 Color (U) Yellow Normal [facility] Comment on above: Performed By: #### U [facility], UA #### [address] [address] Glucose (U) [Mass/Vol] Negative Normal Negative [facility] Comment on above: Performed By: #### U AMIC, UA #### [address] [address] Ketones Ql (U) Negative Normal Negative [facility] Comment on above: Performed By: #### U AMIC, UA #### [place] [address] UA Appear Cloudy Abnormal Clear [facility] Comment on above: Performed By: #### U AMIC, UA #### [place] [address] UA Blood Negative Normal Negative [facility] Comment on above: Performed By: #### U AMIC, UA #### [place] [address] UA Leuk Est Large Abnormal Negative [facility] Comment on above: Performed By: #### U AMIC, UA #### [place] [address] UA Nitrite Positive Abnormal Negative [facility] Comment on above: Performed By: #### U AMIC, UA #### [place] [address] UA pH 6.0 Normal 5.0 - 8.0 [facility] Comment on above: Performed By: #### U AMIC, UA #### [place] [address] UA Protein Negative Normal Negative [facility] Comment on above: Performed By: #### U AMIC, UA #### [place] [address] UA Spec Grav 1.015 Normal 1.015-1.025 [facility] Comment on above: Performed By: #### U AMIC, UA #### [place] [address] UA Specimen Type Clean Catch Normal [facility] Comment on above: Performed By: #### U AMIC, UA #### [place] [address] UA Urobilinogen 0.2 E.U./dL Normal 0.2-1.0 [facility] Comment on above: Performed By: #### U AMIC, UA #### [place] [address] [place], [place] [address] Urobilinogen (U) [Mass/Vol] Negative Normal Negative [facility] Comment on above: Performed By: #### U AMIC, UA #### [address] [address] [facility] 07-27-2025 UA Bacteria 2+ /hpf Abnormal Negative [facility] Comment on above: Performed By: #### U AMIC, UA #### [place] [address] UA RBC 0-2 Normal 0-2 [facility] Comment on above: Performed By: #### U AMIC, UA #### [place] [address] UA Squam Epithelial 0-2 Normal 0-20 [facility] Comment on above: Performed By: #### U AMIC, UA #### [place] [address] UA WBC 50-100 Abnormal 0-5 [facility] Comment on above: Performed By: #### U AMIC, UA #### [address] [address] CNPNon 07-24-2025 [facility] RIKKIMICHAELA ([id number]) 1940 F Date Time Provider Department 07/24/25 DILLAN SANTIAGO INTWS During your visit today, we recorded the following information about you: Michaelle Tai, ZACHARIAH 07/24/2025 12:23 PM Signed Raul- Geno [facility]- phoned to report patient had a missed [...] Encounter Status:Closed by [facility] MICHAEL[facility] BRANDT ([id number]) 1940 F Date Time Provider Department 07/24/25 DILLAN SANTIAGO INTMWS During your visit today, we recorded the following information about you: Jagruti Veloz RN 07/24/2025 4:50 PM Signed [facility] plan of care. Speech therapy will see patient starting 07/19 1 times a week times 5 weeks for cognitive communication. No call back needed unless questions. ZACHARIAH Farris Joy, APRN.[facility] 07/27/2025 9:08 AM Signed Agree with plan and pcp ok to follow. Thank you Mariposa Salinas APRN.[facility] Allergies As of Date: 07/24/2025 (No Known [...] 2025. - Catheter (SELF-CATHETER, FEMALE) 14 Fr [facility] Self catheterizes four times daily Problem List [...] Encounter Status:Closed by MARIPOSA SALINAS on 07/27/25 [facility] MICHAEL[facility] BRANDT ([id number]) 1940 F Date Time Provider Department 07/24/25 DILLAN SANTIAGO During your visit today, we recorded the following information about you: Katie Langston LPN 07/24/2025 3:45 PM Signed Larisa from [facility] calling will begin OT visits next week, [...] Encounter Status:Closed by MARIPOSA SALINAS on 07/27/25 Normal [facility] History AND Physic miracle 07-22-2025 Wound Ctr History & Physical Normal [facility] CBC W Auto Differential pane l (Bld)on 07-17-2025 Basophils (Bld) [#/Vol] 0.08 10*3/uL Normal <0.11 [facility] Comment on above: Order Comment: Speci men Type: BLOOD SPECIMENOrdering Facility: [facility] Address: [address] [place] [address] Performed By: #### 5 7021-8 ####[facility] LABCLIA [id number] [place] [address] [place] Basophils/100 WBC (Bld) 0.6 % Normal C [facility] Comment on above: Order Comment: Speci men Type: BLOOD SPECIMENOrdering Facility: [facility] Address: [address] [place] [address] Performed By: #### 5 7021-8 ####[facility] LABCLIA [id number] [place] [address] [place] Differential cell count method Nom (Bld) Auto Normal [facility] Comment on above: Order Comment: Speci men Type: BLOOD SPECIMENOrdering Facility: [facility] Address: [address] [place] [address] Performed By: #### 5 7021-8 ####[facility] LABCLIA [id number] [address] [address] [place] Eosinophils (Bld) [#/Vol] 0.13 10*3/uL Normal <0.46 [facility] Comment on above: Order Comment: Speci men Type: BLOOD SPECIMENOrdering Facility: [facility] Address: [address] [place] [address] Performed By: #### 5 7021-8 ####[facility] LABCLIA [id number] [place] [address] [place] Eosinophils/100 WBC (Bld) 1.1 % Normal [facility] Comment on above: Order Comment: Speci men Type: BLOOD SPECIMENOrdering Facility: [facility] Address: [address] [place] [address] Performed By: #### 5 7021-8 ####[facility] LABCLIA [id number] [place] [address] [place] Erythrocyte distribution width (RBC) [Ratio] 14.3 % Normal 11.5-15.0 [facility] Comment on above: Order Comment: Speci men Type: BLOOD SPECIMENOrdering Facility: [facility] Address: [address] [place] [address] Performed By: #### 5 7021-8 ####[facility] LABCLIA [id number] [place] [id number] [place] Hematocrit (Bld) [Volume fraction] 39.8 % Normal 36.0-46.0 [facility] Comment on above: Order Comment: Speci men Type: BLOOD SPECIMENOrdering Facility: [facility] Address: [address] [place] [address] Performed By: #### 5 7021-8 ####[facility] LABCLIA [id number] [address] [address] [place] Hemoglobin (Bld) [Mass/Vol] 13.3 g/dL Normal 11.5-15.5 [facility] Comment on above: Order Comment: Speci men Type: BLOOD SPECIMENOrdering Facility: [facility] Address: [address] [place] [address] Performed By: #### 5 7021-8 ####[facility] LABCLIA [id number] [place] [address] [place] Immature granulocytes (Bld) [#/Vol] 0.12 10*3/uL High <0.10 [facility] Comment on above: Order Comment: Speci men Type: BLOOD SPECIMENOrdering Facility: [facility] Address: [address] [place] [address] Performed By: #### 5 7021-8 ####[facility] LABCLIA [id number] [place] [address] [place] Immature granulocytes/100 WBC (Bld) 1.0 % Normal [facility] Comment on above: Order Comment: Speci men Type: BLOOD SPECIMENOrdering Facility: [facility] Address: [address] [place] [address] Performed By: #### 5 7021-8 ####[facility] LABCLIA [id number] [place] [address] [place] Lymphocytes (Bld) [#/Vol] 1.41 10*3/uL Normal 1.00-4.00 [facility] Comment on above: Order Comment: Speci men Type: BLOOD SPECIMENOrdering Facility: [facility] Address: [address] [place] [address] Performed By: #### 5 7021-8 ####[facility] LABCLIA [id number] [place] [id number] [place] Lymphocytes/100 WBC (Bld) 11.4 % Normal [facility] Comment on above: Order Comment: Speci men Type: BLOOD SPECIMENOrdering Facility: [facility] Address: [address] [place] [address] Performed By: #### 5 7021-8 ####[facility] LABIA [id number] [place] [address] [place] MCH (RBC) [Entitic mass] 30.0 pg Normal 26.0-34.0 [facility] Comment on above: Order Comment: Speci men Type: BLOOD SPECIMENOrdering Facility: [facility] Address: [address] [place] [address] Performed By: #### 5 7021-8 ####[facility] LABIA [id number] [place] [address] [place] MCHC (RBC) [Mass/Vol] 33.4 g/dL Normal 30.5-36.0 [facility] Comment on above: Order Comment: Speci men Type: BLOOD SPECIMENOrdering Facility: [facility] Address: [address] [place] [address] Performed By: #### 5 7021-8 ####[facility] LABIA [id number] [place] [address] [place] MCV (RBC) [Entitic vol] 89.8 fL Normal 80.0-100.0 [facility] Comment on above: Order Comment: Speci men Type: BLOOD SPECIMENOrdering Facility: [facility] Address: [address] [place] [address] Performed By: #### 5 7021-8 ####[facility] LABIA [id number] [place] [address] [place] Monocytes (Bld) [#/Vol] 0.72 10*3/uL Normal <0.87 [facility] Comment on above: Order Comment: Speci men Type: BLOOD SPECIMENOrdering Facility: [facility] Address: [address] [place] [address] Performed By: #### 5 7021-8 ####[facility] LABCLIA [id number] [place] [address] [place] Monocytes/100 WBC (Bld) 5.8 % Normal [facility] Comment on above: Order Comment: Speci men Type: BLOOD SPECIMENOrdering Facility: [facility] Address: [address] [place] [address] Performed By: #### 5 7021-8 ####[facility] LABCLIA [id number] [place] [address] [place] Neutrophils (Bld) [#/Vol] 9.91 10*3/uL High 1.45-7.50 [facility] Comment on above: Order Comment: Speci men Type: BLOOD SPECIMENOrdering Facility: [facility] Address: [address] [place] [address] Performed By: #### 5 7021-8 ####[facility] LABCLIA [id number] [place] [address] [place] Neutrophils/100 WBC (Bld) 80.1 % Normal [facility] Comment on above: Order Comment: Speci men Type: BLOOD SPECIMENOrdering Facility: [facility] Address: [address] [place] [address] Performed By: #### 5 7021-8 ####[facility] LABCLIA [id number] [place] [address] [place] Nucleated RBC (Bld) [#/Vol] 10*3/uL Normal <0.01 [facility] Comment on above: Order Comment: Speci men Type: BLOOD SPECIMENOrdering Facility: [facility] Address: [address] [place] [address] Performed By: #### 5 7021-8 ####[facility] LABCLIA [id number] [place] [address] [place] Nucleated RBC/100 WBC (Bld) [Ratio] 0.0 /100 WBC Normal [facility] Comment on above: Order Comment: Speci men Type: BLOOD SPECIMENOrdering Facility: [facility] Address: [address] [place] [address] Performed By: #### 5 7021-8 ####[facility] LABCLIA [id number] [place] [address] [place] Platelet mean volume (Bld) [Entitic vol] 10.7 fL Normal 9.0-12.7 [facility] Comment on above: Order Comment: Speci men Type: BLOOD SPECIMENOrdering Facility: [facility] Address: [address] [place] [address] Performed By: #### 5 7021-8 ####[facility] LABIA [id number] [place] [address] [place] Platelets (Bld) [#/Vol] 225 10*3/uL Normal 150-400 [facility] Comment on above: Order Comment: Speci men Type: BLOOD SPECIMENOrdering Facility: [facility] Address: [address] [place] [address] Performed By: #### 5 7021-8 ####[facility] LABCLIA [id number] [place] [address] [place] RBC (Bld) [#/Vol] 4.43 10*6/uL Normal 3.90-5.20 [facility] Comment on above: Order Comment: Speci men Type: BLOOD SPECIMENOrdering Facility: [facility] Address: [address] [place] [address] Performed By: #### 5 7021-8 ####[facility] LABCLIA [id number] [place] [id number] [place] WBC (Bld) [#/Vol] 12.37 10*3/uL High 3.70-11.00 [facility] Comment on above: Order Comment: Speci men Type: BLOOD SPECIMENOrdering Facility: [facility] Address: [address] [place] [address] Performed By: #### 5 7021-8 ####[facility] RAJI [id number] JES BROWN [id number] [place] [address] [place] CNOVon 07-17-2025 CNOV Office Visit (INTMWS ) MICHAELA BRANDT ([id number]) 1940 F Date Time Provider Department 07/17/25 [...] You have a Lizarraga catheter in place. intermediate will assist with catheter care. We discussed your pressure sores and wound care: - You have stage 2 pressure sores on your buttocks. These require regular care to prevent worsening. - I am sending a referral to the wound care clinic at [facility]. Please call the clinic to schedule an appointment as soon as possible. - intermediate will assist with wound care, including cleaning [...] follow the therapy schedule they provide. - intermediate and your caregiver will assist with mobility [...] This prescription will be sent to your [facility] pharmacy. We discussed additional recommendations: - Consider [...] appointment with the wound care clinic at [facility]. - Follow up with fci for catheter care, wound care, and enema [...] and pressure ulcers. Michaela was admitted to [facility] on 06/20 and discharged on 06/25. She [...] care by her insurance and stayed at [facility] for a couple of weeks, but did not receive much physical therapy. Michaela's daughter is hopeful that with physical therapy at home, Michaela will improve. Michaela has a home health aide from [facility] who helps with (more content not included)... Normal [facility] 07-17-2025 MIK Telephone (MOODY) MICHAELA BRANDT ([id number]) 1940 F Date Time Provider Department 07/17/25 KENTRELL MONTGOMERY During your visit today, we recorded the following information about you: Kentrell Montgomery MSW 07/17/2025 3:31 PM Signed Janna left message for return call in regards to medical alert button options for patient. Kentrell Montgomery MSW 07/21/2025 2:31 PM Signed Janna spoke with patient daughter and she requests that JANNA either mail or My Chart the medical alert button options. Janna will send medical alert button options to patient daughter. Janna and daughter also discussed [facility] and [facility] as other home care director options to compare prices to [facility]. Maribeth notes that she will compare prices of other home care director agencies. Geno ESTRADA is coming out to see patient for PT and daughter is still waiting to hear when [facility]. Allergies As of [...] 2025. - Catheter (SELF-CATHETER, FEMALE) 14 Fr [facility] Self catheterizes four times daily Problem List [...] Encounter Status:Closed by KENTRELL MONTGOMERY on 07/22/25 [facility] 07-16-2025 CNPN Telephone (INTMWS) CRYSTALMICHAELA DORMAN ([id number]) 1940 F Date Time Provider Department 07/16/25 DILLAN SANTIAGO INTMWS During your visit today, [...] as well. German requests call back at [phone]. ZACHARIAH Vazquez Chitra, MD 07/16/2025 4:50 PM Signed Noted and agree RegardsDillan MD, Brittany L, MA 07/16/2025 5:01 PM Signed Left message on secure VM with verbal ok. 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 Normal [facility] 07-13-2025 CNPN Telephone (INTMWS) ARYAMICHAELA MARTINEZ ([id number]) 1940 F Date Time Provider Department 07/13/25 DILLAN SANTIAGO INTMWS During your visit today, we recorded the following information about you: Porsha Vasquez RN 07/13/2025 4:34 PM Signed Berta with [facility] calling and asking if provider is agreeable to signing and following patient for PT, OT and ST orders? Berta states patient was discharged from [facility]. Had UTI, weakness. Please call Berta back at [phone]. ZACHARIAH Mckinney Chitra, MD 07/13/2025 5:06 PM Signed Yes will follow, RegardsDillan MD, Brittany L, MA 07/14/2025 8:29 AM Signed Left detailed [...] Encounter Status:Closed by MIKE GUO on 07/14/25 Normal [facility] Basic Metabolic Profile (BMP )on 06-30-2025 BUN/CRE 24.1 RATIO High 09-07 [facility] Comment on above: Order Comment: 109 Performed By: #### L 500.2500, L100.0500, L501.9310, L501.9520 ####[facility] [address] [place], [address] Calcium [Mass/Vol] 8.8 mg/dL Normal 7.6-11.0 [facility] Comment on above: Order Comment: 109 Performed By: #### L 500.2500, L100.0500, L501.9310, L501.9520 ####[facility] [address] [place], [address] Chloride [Moles/Vol] 103 mmol/L Normal 98-108 [facility] Comment on above: Order Comment: 109 Performed By: #### L 500.2500, L100.0500, L501.9310, L501.9520 ####[facility] [address] [place], [address] CO2 [Moles/Vol] 28.9 mmol/L Normal 21.0-32.0 [facility] Comment on above: Order Comment: 109 Performed By: #### L 500.2500, L100.0500, L501.9310, L501.9520 ####[facility] [address] [place], [address] Creatinine [Mass/Vol] 0.63 mg/dL Low 0.70-1.20 [facility] Comment on above: Order Comment: 109 Performed By: #### L 500.2500, L100.0500, L501.9310, L501.9520 ####[facility] [address] [place], [address] GAP 8 Normal 5-15 [facility] Comment on above: Order Comment: 109 Performed By: #### L 500.2500, L100.0500, L501.9310, L501.9520 ####[facility] [address] [place], [address] GFR/1.73 sq M.predicted among non-blacks MDRD (S/P/Bld) [Vol rate/Area] 88 mL/min/{1.73_m2} Normal >60 [facility] Comment on above: Order Comment: 109 Result Comment: mL/m in/1.73m2 CKD-EPI Creatinine Equation (2020) Performed By: #### L 500.2500, L100.0500, L501.9310, L501.9520 ####[facility] [address] [place], [address] Glucose [Mass/Vol] 95 mg/dL Normal 70-99 [facility] Comment on above: Order Comment: 109 Performed By: #### L 500.2500, L100.0500, L501.9310, L501.9520 ####[facility] [address] [place], [address] Potassium [Moles/Vol] 3.7 mmol/L Normal 3.3-5.1 [facility] Comment on above: Order Comment: 109 Performed By: #### L 500.2500, L100.0500, L501.9310, L501.9520 ####[facility] [address] [place], [address] Sodium [Moles/Vol] 140 mmol/L Normal 133-145 [facility] Comment on above: Order Comment: 109 Performed By: #### L 500.2500, L100.0500, L501.9310, L501.9520 ####[facility] [address] [place], [address] Urea nitrogen [Mass/Vol] 15 mg/dL Normal 4-19 [facility] Comment on above: Order Comment: 109 Performed By: #### L 500.2500, L100.0500, L501.9310, L501.9520 ####[facility] [address] [place], [address] CBC-Complete Blood Cnt No Di ffon 06-30-2025 Erythrocyte distribution width (RBC) [Ratio] 13.6 % Normal 11.6-14.6 [facility] Comment on above: Order Comment: 109 Performed By: #### L 500.2500, L100.0500, L501.9310, L501.9520 ####[facility] [address] [place], [address] Hematocrit (Bld) [Volume fraction] 32.8 % Low 37-47 [facility] Comment on above: Order Comment: 109 Performed By: #### L 500.2500, L100.0500, L501.9310, L501.9520 ####[facility] [address] [place], [address] Hemoglobin (Bld) [Mass/Vol] 11.0 g/dL Low 12.0-15.0 [facility] Comment on above: Order Comment: 109 Performed By: #### L 500.2500, L100.0500, L501.9310, L501.9520 ####[facility] [address] [place], [address] MCH (RBC) [Entitic mass] 29.6 pg Normal 27.0-32.0 [facility] Comment on above: Order Comment: 109 Performed By: #### L 500.2500, L100.0500, L501.9310, L501.9520 ####[facility] [address] [place], [address] MCHC (RBC) [Mass/Vol] 33.5 g/dL Normal 32-36 [facility] Comment on above: Order Comment: 109 Performed By: #### L 500.2500, L100.0500, L501.9310, L501.9520 ####[facility] [address] [place], [address] MCV (RBC) [Entitic vol] 88.4 fL Normal 81-[address] [facility] Comment on above: Order Comment: 109 Performed By: #### L 500.2500, L100.0500, L501.9310, L501.9520 ####[facility] [address] [place], [address] Platelet mean volume (Bld) [Entitic vol] 9.9 fL Normal 6.2-12.0 [facility] Comment on above: Order Comment: 109 Performed By: #### L 500.2500, L100.0500, L501.9310, L501.9520 ####[facility] [address] [place], [address] Platelets (Bld) [#/Vol] 229 10*3/uL Normal 150-450 [facility] Comment on above: Order Comment: 109 Performed By: #### L 500.2500, L100.0500, L501.9310, L501.9520 ####[facility] [address] [place], [address] RBC (Bld) [#/Vol] 3.71 10*6/uL Low 4.2-5.4 [facility] Comment on above: Order Comment: 109 Performed By: #### L 500.2500, L100.0500, L501.9310, L501.9520 ####[facility] [address] [place], [address] RDW SD 43.3 fl Normal 35.1-43.9 [facility] Comment on above: Order Comment: 109 Performed By: #### L 500.2500, L100.0500, L501.9310, L501.9520 ####[facility] [address] [place], [address] WBC (Bld) [#/Vol] 13.1 10*3/uL High 4.4-11.0 [facility] Comment on above: Order Comment: 109 Performed By: #### L 500.2500, L100.0500, L501.9310, L501.9520 ####[facility] [address] [place], [address] T4 Total, Thyroxinon 025 T4 [Mass/Vol] 6.4 ug/dL Normal 4.8-13.9 [facility] Comment on above: Order Comment: 109 Performed By: #### L 500.2500, L100.0500, L501.9310, L501.9520 ####[facility] [address] [place], [address] Thyroid Stim Hormone (TSH)on 06-30-2025 TSH 3.220 uIU/mL Normal 0.300-4.200 [facility] Comment on above: Order Comment: 109 Performed By: #### L 500.2500, L100.0500, L501.9310, L501.9520 ####[facility] [address] [place], [address] Venous Duplex US - Kyle Extre mon 06-23-2025 Venous Duplex US - Kyle Extrem Normal [facility] Basic Metabolic Profile (BMP )on 06-22-2025 BUN/CRE 22.3 RATIO High 10-20 [facility] Comment on above: Performed By: #### L 500.2500, L100.0500 ####[facility] [address] [place], [address] Calcium [Mass/Vol] 8.5 mg/dL Normal 7.6-11.0 [facility] Comment on above: Performed By: #### L 500.2500, L100.0500 ####[facility] [address] [place], [address] Chloride [Moles/Vol] 103 mmol/L Normal 98-108 [facility] Comment on above: Performed By: #### L 500.2500, L100.0500 ####[facility] [address] [place], [address] CO2 [Moles/Vol] 22.8 mmol/L Normal 21.0-32.0 [facility] Comment on above: Performed By: #### L 500.2500, L100.0500 ####[facility] [address] [place], [address] Creatinine [Mass/Vol] 0.72 mg/dL Normal 0.70-1.20 [facility] Comment on above: Performed By: #### L 500.2500, L100.0500 ####[facility] [address] [place], [address] ECRCL 37.60 ml/min Low 50-250 [facility] Comment on above: Performed By: #### L 500.2500, L100.0500 ####[facility] [address] [place], [address] GAP 12 Normal 5-15 [facility] Comment on above: Performed By: #### L 500.2500, L100.0500 ####[facility] [address] [place], [address] GFR/1.73 sq M.predicted among non-blacks MDRD (S/P/Bld) [Vol rate/Area] 82 mL/min/{1.73_m2} Normal >60 [facility] Comment on above: Result Comment: mL/m in/1.73m2 CKD-EPI Creatinine Equation (2020) Performed By: #### L 500.2500, L100.0500 ####[facility] [address] [place], [address] Glucose [Mass/Vol] 94 mg/dL Normal 70-99 [facility] Comment on above: Performed By: #### L 500.2500, L100.0500 ####[facility] [address] [place], [address] Potassium [Moles/Vol] 3.4 mmol/L Normal 3.3-5.1 [facility] Comment on above: Performed By: #### L 500.2500, L100.0500 ####[facility] [address] [place], [address] Sodium [Moles/Vol] 137 mmol/L Normal 133-145 [facility] Comment on above: Performed By: #### L 500.2500, L100.0500 ####[facility] [address] [place], [address] Urea nitrogen [Mass/Vol] 16 mg/dL Normal 4-19 [facility] Comment on above: Performed By: #### L 500.2500, L100.0500 ####[facility] [address] [place], [address] CBC-Complete [facility] Erythrocyte distribution width (RBC) [Ratio] 13.4 % Normal 11.6-14.6 [facility] Comment on above: Performed By: #### L 500.2500, L100.0500 ####[facility] [address] [place], [address] Hematocrit (Bld) [Volume fraction] 32.5 % Low 37-47 [facility] Comment on above: Performed By: #### L 500.2500, L100.0500 ####[facility] [address] [place], [address] Hemoglobin (Bld) [Mass/Vol] 11.3 g/dL Low 12.0-15.0 [facility] Comment on above: Performed By: #### L 500.2500, L100.0500 ####[facility] [address] [place], [address] MCH (RBC) [Entitic mass] 29.7 pg Normal 27.0-32.0 [facility] Comment on above: Performed By: #### L 500.2500, L100.0500 ####[facility] [address] [place], [address] MCHC (RBC) [Mass/Vol] 34.8 g/dL Normal 32-36 [facility] Comment on above: Performed By: #### L 500.2500, L100.0500 ####[facility] [address] [place], [address] MCV (RBC) [Entitic vol] 85.5 fL Normal 81-[address] [facility] Comment on above: Performed By: #### L 500.2500, L100.0500 ####[facility] [address] [place], [address] Platelet mean volume (Bld) [Entitic vol] 10.3 fL Normal 6.2-12.0 [facility] Comment on above: Performed By: #### L 500.2500, L100.0500 ####[facility] [address] [place], [address] Platelets (Bld) [#/Vol] 181 10*3/uL Normal 150-450 [facility] Comment on above: Performed By: #### L 500.2500, L100.0500 ####[facility] [address] [place], [address] RBC (Bld) [#/Vol] 3.80 10*6/uL Low 4.2-5.4 [facility] Comment on above: Performed By: #### L 500.2500, L100.0500 ####[facility] [address] [place], [address] RDW SD 42.1 fl Normal 35.1-43.9 [facility] Comment on above: Performed By: #### L 500.2500, L100.0500 ####[facility] [address] [place], [address] WBC (Bld) [#/Vol] 9.4 10*3/uL Normal 4.4-11.0 [facility] Comment on above: Performed By: #### L 500.2500, L100.0500 ####[facility] [address] [place], [address] Urine Cultureon 06-22-2025 URC Normal [facility] Comment on above: Performed By: #### M 100.2200 ####[facility] [address] [place], [address] Bedside Glucoseon 06-21-2025 FINGERSTICK GLU 95 mg/dL Normal 74-106 [facility] Comment on above: Result Comment: MOMO BLEDSOE OF PATIENT CARE PER NURSING PROTOCOL Performed By: #### L 501.080 ####[facility] [address] [place], [address] CBC W/Diff, Automatedon 08 Absolute Lymph 1.40 X10 3/uL Normal 0.83-4.51 [facility] Comment on above: Performed By: #### L 100.0100, L500.4050, L501.9520 ####[facility] [address] [place], [address] Absolute Neut 11.3 X10 3/uL High 2.0-7.7 [facility] Comment on above: Performed By: #### L 100.0100, L500.4050, L501.9520 ####[facility] [address] [place], [address] Basophils/100 WBC (Bld) 0.6 % Normal 0-[address] [facility] Comment on above: Performed By: #### L 100.0100, L500.4050, L501.9520 ####[facility] [address] [place], [address] Eosinophils/100 WBC (Bld) 1.6 % Normal 0-5 [facility] Comment on above: Performed By: #### L 100.0100, L500.4050, L501.9520 ####[facility] [address] [place], [address] Erythrocyte distribution width (RBC) [Ratio] 13.6 % Normal 11.6-14.6 [facility] Comment on above: Performed By: #### L 100.0100, L500.4050, L501.9520 ####[facility] [address] [place], [address] Hematocrit (Bld) [Volume fraction] 34.9 % Low 37-47 [facility] Comment on above: Performed By: #### L 100.0100, L500.4050, L501.9520 ####[facility] [address] [place], [address] Hemoglobin (Bld) [Mass/Vol] 11.9 g/dL Low 12.0-15.0 [facility] Comment on above: Performed By: #### L 100.0100, L500.4050, L501.9520 ####[facility] [address] [place], [address] IG% 0.800 Normal 0.0-0.9 [facility] Comment on above: Result Comment: IG% - Immature Granulocytes (promyelocytes, myelocytes andmetamyelocytes) > 1% indicates that a LEFT SHIFT is Present. Performed By: #### L 100.0100, L500.4050, L501.9520 ####[facility] [address] [place], [address] Lymphocytes/100 WBC (Bld) 9.7 % Low 19-41 [facility] Comment on above: Performed By: #### L 100.0100, L500.4050, L501.9520 ####[facility] [address] [place], [address] MCH (RBC) [Entitic mass] 30.0 pg Normal 27.0-32.0 [facility] Comment on above: Performed By: #### L 100.0100, L500.4050, L501.9520 ####[facility] [address] [place], [address] MCHC (RBC) [Mass/Vol] 34.1 g/dL Normal 32-36 [facility] Comment on above: Performed By: #### L 100.0100, L500.4050, L501.9520 ####[facility] [address] [place], [address] MCV (RBC) [Entitic vol] 87.9 fL Normal 81-[address] [facility] Comment on above: Performed By: #### L 100.0100, L500.4050, L501.9520 ####[facility] [address] [place], [address] Monocytes/100 WBC (Bld) 9.0 % Normal 0-10 [facility] Comment on above: Performed By: #### L 100.0100, L500.4050, L501.9520 ####[facility] [address] [place], [address] Neutrophils/100 WBC (Bld) 78.3 % High 47-70 [facility] Comment on above: Performed By: #### L 100.0100, L500.4050, L501.9520 ####[facility] [address] [place], [address] Nucleated RBC (Bld) [#/Vol] 0 10*3/uL Normal 0-5 [facility] Comment on above: Performed By: #### L 100.0100, L500.4050, L501.9520 ####[facility] [address] [place], [address] Platelet mean volume (Bld) [Entitic vol] 10.9 fL Normal 6.2-12.0 [facility] Comment on above: Performed By: #### L 100.0100, L500.4050, L501.9520 ####[facility] [address] [place], [address] Platelets (Bld) [#/Vol] 203 10*3/uL Normal 150-450 [facility] Comment on above: Performed By: #### L 100.0100, L500.4050, L501.9520 ####[facility] [address] [place], [address] RBC (Bld) [#/Vol] 3.97 10*6/uL Low 4.2-5.4 [facility] Comment on above: Performed By: #### L 100.0100, L500.4050, L501.9520 ####[facility] [address] [place], [address] RDW SD 43.8 fl Normal 35.1-43.9 [facility] Comment on above: Performed By: #### L 100.0100, L500.4050, L501.9520 ####[facility] [address] [place], [address] WBC (Bld) [#/Vol] 14.5 10*3/uL High 4.4-11.0 [facility] Comment on above: Performed By: #### L 100.0100, L500.4050, L501.9520 ####[facility] [address] [place], [address] Comprehensive Metabolic Prof [facility] 06-21-2025 Albumin [Mass/Vol] 3.4 g/dL Normal 3.4-4.8 [facility] Comment on above: Performed By: #### L 100.0100, L500.4050, L501.9520 ####[facility] [address] [place], [address] Albumin/Globulin [Mass ratio] 1.3 {ratio} Normal 0.9-2.4 [facility] Comment on above: Performed By: #### L 100.0100, L500.4050, L501.9520 ####[facility] [address] [place], [address] ALK PHOS 94 U/L Normal 35-104 [facility] Comment on above: Performed By: #### L 100.0100, L500.4050, L501.9520 ####[facility] [address] [place], [address] ALT [Catalytic activity/Vol] 16 U/L Normal <=34 [facility] Comment on above: Performed By: #### L 100.0100, L500.4050, L501.9520 ####[facility] [address] [place], [address] AST [Catalytic activity/Vol] 44 U/L High <=31 [facility] Comment on above: Performed By: #### L 100.0100, L500.4050, L501.9520 ####[facility] [address] [place], [address] Bilirubin [Mass/Vol] 1.46 mg/dL High 0.00-1.30 [facility] Comment on above: Performed By: #### L 100.0100, L500.4050, L501.9520 ####[facility] [address] [place], [address] BUN/CRE 22.2 RATIO High 10-20 [facility] Comment on above: Performed By: #### L 100.0100, L500.4050, L501.9520 ####[facility] [address] [place], [address] Calcium [Mass/Vol] 8.8 mg/dL Normal 7.6-11.0 [facility] Comment on above: Performed By: #### L 100.0100, L500.4050, L501.9520 ####[facility] [address] [place], [address] Chloride [Moles/Vol] 103 mmol/L Normal 98-108 [facility] Comment on above: Performed By: #### L 100.0100, L500.4050, L501.9520 ####[facility] [address] [place], [address] CO2 [Moles/Vol] 23.9 mmol/L Normal 21.0-32.0 [facility] Comment on above: Performed By: #### L 100.0100, L500.4050, L501.9520 ####[facility] [address] [place], [address] Creatinine [Mass/Vol] 0.92 mg/dL Normal 0.70-1.20 [facility] Comment on above: Performed By: #### L 100.0100, L500.4050, L501.9520 ####[facility] [address] [place], [address] ECRCL 32.70 ml/min Low 50-250 [facility] Comment on above: Performed By: #### L 100.0100, L500.4050, L501.9520 ####[facility] [address] [place], [address] GAP 12 Normal 5-15 [facility] Comment on above: Performed By: #### L 100.0100, L500.4050, L501.9520 ####[facility] [address] [place], [address] GFR/1.73 sq M.predicted among non-blacks MDRD (S/P/Bld) [Vol rate/Area] 62 mL/min/{1.73_m2} Normal >60 [facility] Comment on above: Result Comment: mL/m in/1.73m2 CKD-EPI Creatinine Equation (2020) Performed By: #### L 100.0100, L500.4050, L501.9520 ####[facility] [address] [place], [address] Globulin (S) [Mass/Vol] 2.5 g/dL Normal 2.2-4.2 [facility] Comment on above: Performed By: #### L 100.0100, L500.4050, L501.9520 ####[facility] [address] [place], [address] Glucose [Mass/Vol] 93 mg/dL Normal 70-99 [facility] Comment on above: Performed By: #### L 100.0100, L500.4050, L501.9520 ####[facility] [address] [place], [address] Potassium [Moles/Vol] 3.5 mmol/L Normal 3.3-5.1 [facility] Comment on above: Performed By: #### L 100.0100, L500.4050, L501.9520 ####[facility] [address] [place], [address] Sodium [Moles/Vol] 139 mmol/L Normal 133-145 [facility] Comment on above: Performed By: #### L 100.0100, L500.4050, L501.9520 ####[facility] [address] [place], [address] T PROT 5.9 g/dL Normal 5.9-8.4 [facility] Comment on above: Performed By: #### L 100.0100, L500.4050, L501.9520 ####[facility] [address] [place], [address] Urea nitrogen [Mass/Vol] 20 mg/dL High 4-19 [facility] Comment on above: Performed By: #### L 100.0100, L500.4050, L501.9520 ####[facility] [address] [place], [address] Thyroid Stim Hormone (TSH)on 06-21-2025 TSH 1.600 uIU/mL Normal 0.300-4.200 [facility] Comment on above: Performed By: #### L 100.0100, L500.4050, L501.9520 ####[facility] [address] [place], [address] 12 Lead EKGon 06-20-2025 12 Lead EKG Normal [facility] Absolute lymphocyte countOrd ered By: Wesley Jones on 06-20-2025 Lymphocytes Auto (Unsp spec) [#/Vol] 0.99 10*3/uL 0.83-4.51 [facility] Absolute neutrophil countOrd ered By: Wesley Jones on 06-20-2025 Neutrophils (Bld) [#/Vol] 25.4 10*3/uL High 2.0-7.7 [facility] Activated partial thrombopla stin time (aPTT) in platelet poor plasma by coagulation aOrdered By: Wesley Jones on 06-20-2025 aPTT Coag (PPP) [Time] 35.6 s 24.1-36.2 [facility] Anion gap in Serum or Plasma Ordered By: Wesley Jones on 06-20-2025 Anion gap [Moles/Vol] 15 mmol/L 5-15 [facility] Automated lymphocyte count a s percentage of total leukocytesOrdered By: Wesley Jones on 06-20-2025 Lymphocytes/100 WBC Auto (Unsp spec) 3.5 % Low 19-41 [facility] BUN/creatinine ratioOrdered By: Wesley Jones on 06-20-2025 Urea nitrogen/Creatinine [Mass ratio] 18.1 mg/mg - [facility] Basic Metabolic Profile (BMP )on 06-20-2025 BUN/CRE 18.1 RATIO Normal 09-07 [facility] Comment on above: Performed By: #### L 100.0100, L500.3400, L500.2500, L300.4310, L300.3900 ####[facility] [address] [place], [address] Calcium [Mass/Vol] 9.9 mg/dL Normal 7.6-11.0 [facility] Comment on above: Performed By: #### L 100.0100, L500.3400, L500.2500, L300.4310, L300.3900 ####[facility] [address] [place], [address] Chloride [Moles/Vol] 99 mmol/L Normal 98-108 [facility] Comment on above: Performed By: #### L 100.0100, L500.3400, L500.2500, L300.4310, L300.3900 ####[facility] [address] [place], [address] CO2 [Moles/Vol] 24.3 mmol/L Normal 21.0-32.0 [facility] Comment on above: Performed By: #### L 100.0100, L500.3400, L500.2500, L300.4310, L300.3900 ####[facility] [address] [place], [address] Creatinine [Mass/Vol] 0.93 mg/dL Normal 0.70-1.20 [facility] Comment on above: Performed By: #### L 100.0100, L500.3400, L500.2500, L300.4310, L300.3900 ####[facility] [address] [place], [address] ECRCL 32.34 ml/min Low 50-250 [facility] Comment on above: Performed By: #### L 100.0100, L500.3400, L500.2500, L300.4310, L300.3900 ####[facility] [address] [place], [address] GAP 15 Normal 5-15 [facility] Comment on above: Performed By: #### L 100.0100, L500.3400, L500.2500, L300.4310, L300.3900 ####[facility] [address] [place], [address] GFR/1.73 sq M.predicted among non-blacks MDRD (S/P/Bld) [Vol rate/Area] 60 mL/min/{1.73_m2} Normal >60 [facility] Comment on above: Result Comment: mL/m in/1.73m2 CKD-EPI Creatinine Equation (2020) Performed By: #### L 100.0100, L500.3400, L500.2500, L300.4310, L300.3900 ####[facility] [address] [place], [address] Glucose [Mass/Vol] 149 mg/dL High 70-99 [facility] Comment on above: Performed By: #### L 100.0100, L500.3400, L500.2500, L300.4310, L300.3900 ####[facility] [address] [place], [address] Potassium [Moles/Vol] 3.7 mmol/L Normal 3.3-5.1 [facility] Comment on above: Performed By: #### L 100.0100, L500.3400, L500.2500, L300.4310, L300.3900 ####[facility] [address] [place], [address] Sodium [Moles/Vol] 138 mmol/L Normal 133-145 [facility] Comment on above: Performed By: #### L 100.0100, L500.3400, L500.2500, L300.4310, L300.3900 ####[facility] [address] [place], [address] Urea nitrogen [Mass/Vol] 17 mg/dL Normal 4-19 [facility] Comment on above: Performed By: #### L 100.0100, L500.3400, L500.2500, L300.4310, L300.3900 ####[facility] [address] [place], [place], [id number] Basophil percentageOrdered B y: Wesley Jones on 06-20-2025 Basophils/100 WBC (Bld) 0.3 % 0-[address] [facility] Bilirubin Test strip Ql (U)O rdered By: Wesley Jones on 06-20-2025 Bilirubin Ql (U) Negative Negative [facility] Bilirubin directOrdered By: Wesley Jones on 06-20-2025 Bilirubin.direct [Mass/Vol] 0.85 mg/dL High 0.00-0.30 [facility] Bilirubin, totalOrdered By: Wesley Jones on 06-20-2025 Bilirubin [Mass/Vol] 2.15 mg/dL High 0.00-1.30 [facility] Blood manual differential co mment interpretation (narrative result)Ordered By: Wesley Jones on 06-20-2025 Manual differential comment José Miguel (Bld) [Interp] See comment [facility] Comment on above: NEUTROPHILIA Brain/Head without Contrasto n 06-20-2025 Brain/Head without Contrast Normal [facility] CBC W/Diff, Automatedon 08 SMEAR COMMENT Normal [facility] Comment on above: Result Comment: NEUT ROPHILIA Performed By: #### L 100.0100, L500.3400, L500.2500, L300.4310, L300.3900 ####[facility] [address] [place], [place], [address] CPK Total, Creatine Kinaseon 06-20-2025 CPK TOTAL 914 U/L High 24-195 [facility] Comment on above: Performed By: #### L 501.3620 ####[facility] [address] [place], [place], [id number] [place] Chest, Abd, Pel w/Contras ton 06-20-2025 CT Chest, Abd, Pel w/Contrast Normal [facility] Carbon dioxide, total [Moles /volume] in Central venous bloodOrdered By: Wesley Jones on 06-20-2025 CO2 [Moles/Vol] 24.3 mmol/L 21.0-32.0 [facility] Chloride assayOrdered By: Bridger Jones on 06-20-2025 Chloride [Moles/Vol] 99 mmol/L 98-108 [facility] Elbow min 3 Viewson 06-20-20 25 Elbow min 3 Views Normal [facility] Emergency Department Summary on 06-20-2025 Emergency Department Summary Normal [facility] Eosinophil percentageOrdered By: Wesley Jones on 06-20-2025 Eosinophils/100 WBC (Bld) 0.0 % 0-5 [facility] Erythrocyte distribution wid th ratioOrdered By: Wesley Jones on 06-20-2025 Erythrocyte distribution width (RBC) [Ratio] 13.5 % 11.6-14.6 [facility] Erythrocyte distribution wid th standard deviationOrdered By: Wesley Jones on 06-20-2025 Erythrocyte distribution width (RBC) [Ratio] 42.5 fl 35.1-43.9 [facility] Glomerular filtration rate ( GFR) estimation/1.73 sq m using serum, plasma, or whole bOrdered By: Wesley Jones on 06-20-2025 GFR/1.73 sq M.predicted among non-blacks MDRD (S/P/Bld) [Vol rate/Area] 60 mL/min/{1.73_m2} >60 [facility] Comment on above: mL/min/1.73m2 CKD-EP I Creatinine Equation (2020) H AND P Exam - Hospitaliston 06-20-2025 H&P Exam - Hospitalist Normal [facility] HIP, UNI W/ Pelvis 2-3 Views on 06-20-2025 HIP, UNI W/ Pelvis 2-3 Views Normal [facility] Hematocrit Auto (Bld) [Volum e fraction]Ordered By: Wesley Jones on 06-20-2025 Hematocrit (Bld) [Volume fraction] 41.5 % 37-47 [facility] Hemoglobin measurementOrdere d By: Wesley Jones on 06-20-2025 Hemoglobin (Bld) [Mass/Vol] 14.3 g/dL 12.0-15.0 [facility] Immature granulocytes/100 WB C Auto (Bld)Ordered By: Wesley Jones on 06-20-2025 Immature granulocytes/100 WBC (Bld) 1.400 % High 0.0-0.9 [facility] Comment on above: IG% - Immature Granu locytes (promyelocytes, myelocytes and metamyelocytes) > 1% indicates that a LEFT SHIFT is Present. International normalized rat io (INR) calculationOrdered By: Wesley Jones on 06-20-2025 INR Coag (Bld) [Relative time] 1.6 {INR} [facility] Ketones Test strip Ql (U)Ord ered By: Wesley Jones on 06-20-2025 Ketones Ql (U) 5 mg/dl High Negative [facility] Knee 1 or 2 Viewson 06-20-20 25 Knee 1 or 2 Views Normal [facility] Laboratory - Chemistry and C hemistry - challengeOrdered By: Wesley Jones on 06-20-2025 AST [Catalytic activity/Vol] 47 U/L High <32 [facility] Liver Profileon 06-20-2025 Albumin [Mass/Vol] 4.3 g/dL Normal 3.4-4.8 [facility] Comment on above: Performed By: #### L 100.0100, L500.3400, L500.2500, L300.4310, L300.3900 ####[facility] [address] [place], [address] ALK PHOS 121 U/L High 35-104 [facility] Comment on above: Performed By: #### L 100.0100, L500.3400, L500.2500, L300.4310, L300.3900 ####[facility] [address] [place], [address] ALT [Catalytic activity/Vol] 19 U/L Normal <=34 [facility] Comment on above: Performed By: #### L 100.0100, L500.3400, L500.2500, L300.4310, L300.3900 ####[facility] [address] [place], [address] AST [Catalytic activity/Vol] 47 U/L High <=31 [facility] Comment on above: Performed By: #### L 100.0100, L500.3400, L500.2500, L300.4310, L300.3900 ####[facility] [address] [place], [address] Bilirubin [Mass/Vol] 2.15 mg/dL High 0.00-1.30 [facility] Comment on above: Performed By: #### L 100.0100, L500.3400, L500.2500, L300.4310, L300.3900 ####[facility] [address] [place], [address] Bilirubin.direct [Mass/Vol] 0.85 mg/dL High 0.00-0.30 [facility] Comment on above: Performed By: #### L 100.0100, L500.3400, L500.2500, L300.4310, L300.3900 ####[facility] [address] [place], [address] Globulin (S) [Mass/Vol] 3.5 g/dL Normal 2.2-4.2 [facility] Comment on above: Performed By: #### L 100.0100, L500.3400, L500.2500, L300.4310, L300.3900 ####[facility] [address] [place], [address] T PROT 7.7 g/dL Normal 5.9-8.4 [facility] Comment on above: Performed By: #### L 100.0100, L500.3400, L500.2500, L300.4310, L300.3900 ####[facility] [address] [place], [address] MCV (mean corpuscular volume ) determinationOrdered By: Wesley Jones on 06-20-2025 MCV (RBC) [Entitic vol] 87.0 fL 81-[address] [facility] Mean corpuscular hemoglobin (MCH) determinationOrdered By: Wesley Jones on 06-20-2025 MCH (RBC) [Entitic mass] 30.0 pg 27.0-32.0 [facility] Mean corpuscular hemoglobin concentration (MCHC) determinationOrdered By: Wesley Jones on 06-20-2025 MCHC (RBC) [Mass/Vol] 34.5 g/dL 32-36 [facility] Mean platelet volume determi nationOrdered By: Wesley Jones on 06-20-2025 Platelet mean volume (Bld) [Entitic vol] 10.6 fL 6.2-12.0 [facility] Microscopic analysis of urin e for red blood cells (RBC)Ordered By: Wesley Jones on 06-20-2025 Microscopic analysis of urine for red blood cells (RBC) 10-25 SEEN /hpf 0-5 [facility] Monocyte percentageOrdered B y: Wesley Jones on 06-20-2025 Monocytes/100 WBC (Bld) 5.6 % 0-[address] [facility] Mucus LM Ql (Urine sed)Order ed By: Wesley Jones on 06-20-2025 Mucus Ql (Urine sed) 0 SEEN /hpf [facility] Neutrophil percentageOrdered By: Wesley Jones on 06-20-2025 Neutrophils/100 WBC (Bld) 89.2 % High 47-70 [facility] Nitrite Test strip Ql (U)Ord ered By: Wesley Jones on 06-20-2025 Nitrite Ql (U) Positive High Negative [facility] Nucleated red blood cell per centageOrdered By: Wesley Jones on 06-20-2025 Nucleated RBC/100 WBC (Bld) [Ratio] 0 % 0-5 [facility] Partial Thromboplast Timeon 06-20-2025 aPTT Coag (Bld) [Time] 35.6 s Normal 24.1-36.2 [facility] Comment on above: Performed By: #### L 100.0100, L500.3400, L500.2500, L300.4310, L300.3900 ####[facility] [address] [place], [address] Platelet countOrdered By: Bridger Jones on 06-20-2025 Platelets (Bld) [#/Vol] 252 10*3/uL 150-450 [facility] Potassium measurement (mass/ volume)Ordered By: Wesley Jones on 06-20-2025 Potassium (Unsp spec) [Mass/Vol] 3.7 mmol/L 3.3-5.1 [facility] Protein Test strip Ql (U)Ord ered By: Wesley Jones on 06-20-2025 Protein Ql (U) 30 mg/dl High Negative [facility] Prothrombin Time w/INRon INR Coag (PPP) [Relative time] 1.6 {INR} Normal [facility] Comment on above: Performed By: #### L 100.0100, L500.3400, L500.2500, L300.4310, L300.3900 ####[facility] [address] [place], [address] PT Coag (PPP) [Time] 19.6 s High 11.7-14.9 [facility] Comment on above: Performed By: #### L 100.0100, L500.3400, L500.2500, L300.4310, L300.3900 ####[facility] [address] [place], [address] Prothrombin timeOrdered By: Wesley Jones on 06-20-2025 PT Coag (PPP) [Time] 19.6 s High 11.7-14.9 [facility] RBC Auto (Bld) [#/Vol]Ordere d By: Wesley Jones on 06-20-2025 RBC (Bld) [#/Vol] 4.77 10*6/uL 4.2-5.4 [facility] Serum creatinine measurement (mass/volume)Ordered By: Wesley Jones on 06-20-2025 Creatinine [Mass/Vol] 0.93 mg/dL 0.70-1.20 [facility] Serum globulin measurementOr dered By: Wesley Jones on 06-20-2025 Globulin (S) [Mass/Vol] 3.5 g/dL 2.2-4.[address] [facility] Serum glucose measurement (m ass/volume)Ordered By: Wesley Jones on 06-20-2025 Glucose [Mass/Vol] 149 mg/dL High 70-99 [facility] Serum or plasma alanine tillman otransferase (ALT) measurementOrdered By: Wesley Jones on 06-20-2025 ALT [Catalytic activity/Vol] 19 U/L <35 [facility] Serum or plasma albumin thomas urement (mass/volume)Ordered By: Wesley Jones on 06-20-2025 Albumin [Mass/Vol] 4.3 g/dL 3.4-4.8 [facility] Serum or plasma alkaline mariah sphatase measurementOrdered By: Wesley Jones on 06-20-2025 ALP [Catalytic activity/Vol] 121 U/L High 35-104 [facility] Serum or plasma calcium thomas urement (mass/volume)Ordered By: Wesley Jones on 06-20-2025 Calcium [Mass/Vol] 9.9 mg/dL 7.6-11.0 [facility] Serum or plasma creatine kin ase activityOrdered By: Wesley Jones on 06-20-2025 CK [Catalytic activity/Vol] 914 U/L High 24-195 [facility] Serum or plasma urea nitroge n measurement (mass/volume)Ordered By: Wesley Jones on 06-20-2025 Urea nitrogen [Mass/Vol] 17 mg/dL 4-19 [facility] Sodium levelOrdered By: Kingston Jones on 06-20-2025 Sodium [Moles/Vol] 138 mmol/L 133-145 [facility] Spine Cervical without Contr ason 06-20-2025 Spine Cervical without Contras Normal [facility] Squamous epithelial cells de tection in urine sediment by light microscopyOrdered By: Wesley Jones on 06-20-2025 Epithelial cells.squamous LM Ql (Urine sed) 0-5 SEEN /hpf 5-10 [facility] Total proteinOrdered By: Dimple Jones on 06-20-2025 Protein [Mass/Vol] 7.7 g/dL 5.9-8.4 [facility] Urinalysis, Completeon 06-20 BACTERIA 1+ /hpf Normal None Seen [facility] Comment on above: Order Comment: CLEAN CATCH Performed By: #### L 400.0001 ####[facility] [address] [place], [address] EPI,SQUAMOUS 0-5 SEEN Normal 5-10 [facility] Comment on above: Order Comment: CLEAN CATCH Performed By: #### L 400.0001 ####[facility] [address] [place], [address] RBC 10-25 SEEN Normal 0-5 [facility] Comment on above: Order Comment: CLEAN CATCH Performed By: #### L 400.0001 ####[facility] [address] [place], [address] Mucus Ql (Urine sed) 0 SEEN Normal [facility] Comment on above: Order Comment: CLEAN CATCH Performed By: #### L 400.0001 ####[facility] [address] [place], [address] WBC 0 SEEN Normal 0-5 [facility] Comment on above: Order Comment: CLEAN CATCH Performed By: #### L 400.0001 ####[facility] [address] [place], [address] Urine clarityOrdered By: Dimple Jones on 06-20-2025 Clarity (U) Clear Clear [facility] Urine color determinationOrd ered By: Wesley Jones on 06-20-2025 Color (U) Yellow Yellow [facility] Urine glucose detectionOrder ed By: Wesley Jones on 06-20-2025 Glucose Ql (U) Normal mg/dl Normal [facility] Urine leukocyte esterase det ection by dipstickOrdered By: Wesley Jones on 06-20-2025 Leukocyte esterase Test strip Ql (U) 100 /ul High Negative [facility] Urine pHOrdered By: Wesley li on 06-20-2025 pH (U) 5.0 [pH] 5.0 - 8.0 [facility] Urine sediment bacteria coun t by microscopy (number/high power field)Ordered By: Wesley Jones on 06-20-2025 Bacteria LM.HPF (Urine sed) [#/Area] 1 /[HPF] None Seen [facility] Urine specific gravity measu rementOrdered By: Wesley Jones on 06-20-2025 Specific gravity (U) [Rel density] 1.015 1.002-1.030 [facility] Urine urobilinogen measureme ntOrdered By: Wesley Jones on 06-20-2025 Urobilinogen Ql (U) Normal mg/dl Normal [facility] White blood cell (WBC) count Ordered By: Wesley Jones on 06-20-2025 WBC (Bld) [#/Vol] 28.5 10*3/uL High 4.4-11.0 [facility] White blood cell countOrdere d By: Wesley Jones on 06-20-2025 White blood cell count 0 SEEN /hpf 0-[address] [facility] CNPNon 06-17-2025 [facility] (INT[facility]WS) ARYAMICHELLETraMICHAELA DORMAN ([id number]) 1940 F Date Time Provider Department 06/17/25 DILLAN SANTIAGO INTMWS During your visit today, we recorded the following information about you: Gabi Mcelroy RN 06/17/2025 5:02 PM Signed Brissa from [employer] called in to let provider know that [...] PM Signed Noted and agree Regards, Gabi Cesar MD, RN 06/18/2025 1:43 PM Signed Called and left a detailed voicemail notifying Brissa from [facility] of providers message. Clinic phone number was left in case she had any questions. Gabi Mcelroy RN Allergies As of Date: 06/17/2025 (No Known Allergies) Date Reviewed: 06/03/2025 Reviewed by: Mike Guo MA - Fully Assessed Reason for Visit: Home Health Point of Care Results [4062] Prescriptions as of 06/18/2025 - clonazePAM (KLONOPIN) [...] Status:Closed by GABI MCELROY on 06/18/25 Normal [facility] CNOVon 06-03-2025 CNOV Office Visit (GERIWR ) MICHAELA BRANDT ([id number]) 1940 F Date Time Provider Department 06/03/25 [...] This condition requires specialized care from a passenger car upholsterer apprentice, as regular nail trimming is not sufficient. - You already have an appointment scheduled with podiatry in June. At that visit, they will assess your nails and provide appropriate treatment. - I documented the findings in your chart to ensure the passenger car upholsterer apprentice is aware of the condition and can [...] a month ago, which was treated at [facility]. Michaela expresses reluctance to continue self-catheterization due to the risk of introducing infections and is considering a suprapubic catheter as an alternative. Michaela has not yet undergone an echocardiogram that was previously scheduled. She expresses a desire to reschedule the appointment. Michaela is also experiencing issues with thickened toenails, which are causing discomfort when wearing shoes. She has an appointment with a passenger car upholsterer apprentice next month for evaluation and treatment. Michaela [...] Michaela's daughter, who currently holds power of real estate attorney, is trying to prevent this. Michaela expresses a desire to maintain her independence and make her own decisions. Social History Tobacco Use Smoking status: Ne (more content not included)... Normal [facility] 05-20-2025 [facility] Tele[facility] (INTMWS) MICHALEA BRANDT ([id number]) 1940 F Date Time Provider Department 05/20/25 DILLAN SANTIAGO INTWS During your visit today, we recorded the following information about you: Jagruti Veliz 05/20/2025 10:53 AM Signed Patient's daughter dropped off forms that need filled [facility], att [phone]. Forms given to nurse. Please assist. Mike Guo MA 05/20/2025 5:03 PM Signed Forms given to PCP for review/signature. EVON Rouse Brittany L, MA 05/26/2025 11:29 AM Signed Forms completed and faxed back to # provided: [phone]. Mike Guo MA Allergies As of Date: [...] Status:Closed by MIKE GUO on 05/26/25 Normal [facility] Urine Cultureon 05-19-2025 URC Normal [facility] Comment on above: Performed By: #### M 100.2200 ####[facility] [address] [place], [address] Absolute lymphocyte countOrd ered By: Domingo Darby on 05-17-2025 Lymphocytes Auto (Unsp spec) [#/Vol] 1.24 10*3/uL 0.83-4.51 [facility] Absolute neutrophil countOrd ered By: Domingo Darby on 05-17-2025 Neutrophils (Bld) [#/Vol] 6.9 10*3/uL 2.0-7.7 [facility] Anion gap in Serum or Plasma Ordered By: Domingo Darby on 05-17-2025 Anion gap [Moles/Vol] 12 mmol/L 5-15 [facility] Automated lymphocyte count a s percentage of total leukocytesOrdered By: Domingo Darby on 05-17-2025 Lymphocytes/100 WBC Auto (Unsp spec) 14.1 % Low 19-41 [facility] BUN/creatinine ratioOrdered By: Domingo Darby on 05-17-2025 Urea nitrogen/Creatinine [Mass ratio] 15.6 mg/mg 10- [facility] Basic Metabolic Profile (BMP )on 05-17-2025 BUN/CRE 15.6 RATIO Normal - [facility] Comment on above: Performed By: #### L 100.0100, L500.2500 ####[facility] [address] [place], [address] Calcium [Mass/Vol] 9.0 mg/dL Normal 7.6-11.0 [facility] Comment on above: Performed By: #### L 100.0100, L500.2500 ####[facility] [address] [place], [address] Chloride [Moles/Vol] 104 mmol/L Normal 98-108 [facility] Comment on above: Performed By: #### L 100.0100, L500.2500 ####[facility] [address] [place], [address] CO2 [Moles/Vol] 26.5 mmol/L Normal 21.0-32.0 [facility] Comment on above: Performed By: #### L 100.0100, L500.2500 ####[facility] [address] [place], [address] Creatinine [Mass/Vol] 0.96 mg/dL Normal 0.70-1.20 [facility] Comment on above: Performed By: #### L 100.0100, L500.2500 ####[facility] [address] [place], [address] GAP 12 Normal 5-15 [facility] Comment on above: Performed By: #### L 100.0100, L500.2500 ####[facility] [address] [place], [address] GFR/1.73 sq M.predicted among non-blacks MDRD (S/P/Bld) [Vol rate/Area] 58 mL/min/{1.73_m2} Low >60 [facility] Comment on above: Result Comment: mL/m in/1.73m2 CKD-EPI Creatinine Equation (2020) Performed By: #### L 100.0100, L500.2500 ####[facility] [address] [place], [address] Glucose [Mass/Vol] 97 mg/dL Normal 70-99 [facility] Comment on above: Performed By: #### L 100.0100, L500.2500 ####[facility] [address] [place], [address] Potassium [Moles/Vol] 3.9 mmol/L Normal 3.3-5.1 [facility] Comment on above: Result Comment: Hemo lysis present, Results??could be affected.?? Performed By: #### L 100.0100, L500.2500 ####[facility] [address] [place], [address] Sodium [Moles/Vol] 142 mmol/L Normal 133-145 [facility] Comment on above: Performed By: #### L 100.0100, L500.2500 ####[facility] [address] [place], [address] Urea nitrogen [Mass/Vol] 15 mg/dL Normal 4-19 [facility] Comment on above: Performed By: #### L 100.0100, L500.2500 ####[facility] [address] [place], [address] Basophil percentageOrdered B y: Domingo Darby on 05-17-2025 Basophils/100 WBC (Bld) 0.6 % 0-[address] [facility] Bilirubin Test strip Ql (U)O rdered By: Domingo Darby on 05-17-2025 Bilirubin Ql (U) Negative Negative [facility] CBC W/Diff, Automatedon 04-20 Absolute Lymph 1.24 X10 3/uL Normal 0.83-4.51 [facility] Comment on above: Performed By: #### L 100.0100, L500.2500 ####[facility] [address] [place], [address] Absolute Neut 6.9 X10 3/uL Normal 2.0-7.7 [facility] Comment on above: Performed By: #### L 100.0100, L500.2500 ####[facility] [address] [place], [address] Basophils/100 WBC (Bld) 0.6 % Normal 0-[address] [facility] Comment on above: Performed By: #### L 100.0100, L500.2500 ####[facility] [address] [place], [address] Eosinophils/100 WBC (Bld) 0.9 % Normal 0-5 [facility] Comment on above: Performed By: #### L 100.0100, L500.2500 ####[facility] [address] [place], [address] Erythrocyte distribution width (RBC) [Ratio] 13.1 % Normal 11.6-14.6 [facility] Comment on above: Performed By: #### L 100.0100, L500.2500 ####[facility] [address] [place], [address] Hematocrit (Bld) [Volume fraction] 36.5 % Low 37-47 [facility] Comment on above: Performed By: #### L 100.0100, L500.2500 ####[facility] [address] [place], [address] Hemoglobin (Bld) [Mass/Vol] 12.5 g/dL Normal 12.0-15.0 [facility] Comment on above: Performed By: #### L 100.0100, L500.2500 ####[facility] [address] [place], [address] IG% 0.500 Normal 0.0-0.9 [facility] Comment on above: Result Comment: IG% - Immature Granulocytes (promyelocytes, myelocytes andmetamyelocytes) > 1% indicates that a LEFT SHIFT is Present. Performed By: #### L 100.0100, L500.2500 ####[facility] [address] [place], [address] Lymphocytes/100 WBC (Bld) 14.1 % Low 19-41 [facility] Comment on above: Performed By: #### L 100.0100, L500.2500 ####[facility] [address] [place], [address] MCH (RBC) [Entitic mass] 30.0 pg Normal 27.0-32.0 [facility] Comment on above: Performed By: #### L 100.0100, L500.2500 ####[facility] [address] [place], [address] MCHC (RBC) [Mass/Vol] 34.2 g/dL Normal 32-36 [facility] Comment on above: Performed By: #### L 100.0100, L500.2500 ####[facility] [address] [place], [address] MCV (RBC) [Entitic vol] 87.5 fL Normal 81-[address] [facility] Comment on above: Performed By: #### L 100.0100, L500.2500 ####[facility] [address] [place], [address] Monocytes/100 WBC (Bld) 5.1 % Normal 0-10 [facility] Comment on above: Performed By: #### L 100.0100, L500.2500 ####[facility] [address] [place], [address] Neutrophils/100 WBC (Bld) 78.8 % High 47-70 [facility] Comment on above: Performed By: #### L 100.0100, L500.2500 ####[facility] [address] [place], [address] Nucleated RBC (Bld) [#/Vol] 0 10*3/uL Normal 0-5 [facility] Comment on above: Performed By: #### L 100.0100, L500.2500 ####[facility] [address] [place], [address] Platelet mean volume (Bld) [Entitic vol] 10.4 fL Normal 6.2-12.0 [facility] Comment on above: Performed By: #### L 100.0100, L500.2500 ####[facility] [address] [place], [address] Platelets (Bld) [#/Vol] 181 10*3/uL Normal 150-450 [facility] Comment on above: Performed By: #### L 100.0100, L500.2500 ####[facility] [address] [place], [address] RBC (Bld) [#/Vol] 4.17 10*6/uL Low 4.2-5.4 [facility] Comment on above: Performed By: #### L 100.0100, L500.2500 ####[facility] [address] [place], [address] RDW SD 41.9 fl Normal 35.1-43.9 [facility] Comment on above: Performed By: #### L 100.0100, L500.2500 ####[facility] [address] [place], [address] WBC (Bld) [#/Vol] 8.8 10*3/uL Normal 4.4-11.0 [facility] Comment on above: Performed By: #### L 100.0100, L500.2500 ####[facility] [address] [place], [address] Carbon dioxide, total [Moles /volume] in Central venous bloodOrdered By: Domingo Darby on 05-17-2025 CO2 [Moles/Vol] 26.5 mmol/L 21.0-32.0 [facility] Chloride assayOrdered By: Kodak Darby on 05-17-2025 Chloride [Moles/Vol] 104 mmol/L 98-108 [facility] Emergency Department Summary on 05-17-2025 Emergency Department Summary Normal [facility] Eosinophil percentageOrdered By: Domingo Darby on 05-17-2025 Eosinophils/100 WBC (Bld) 0.9 % 0-5 [facility] Erythrocyte distribution wid th ratioOrdered By: Domingo Darby on 05-17-2025 Erythrocyte distribution width (RBC) [Ratio] 13.1 % 11.6-14.6 [facility] Erythrocyte distribution wid th standard deviationOrdered By: Domingo Darby on 05-17-2025 Erythrocyte distribution width (RBC) [Ratio] 41.9 fl 35.1-43.9 [facility] Glomerular filtration rate ( GFR) estimation/1.73 sq m using serum, plasma, or whole bOrdered By: Domingo Darby on 05-17-2025 GFR/1.73 sq M.predicted among non-blacks MDRD (S/P/Bld) [Vol rate/Area] 58 mL/min/{1.73_m2} Low >60 [facility] Comment on above: mL/min/1.73m2 CKD-EP I Creatinine Equation (2020) Hematocrit Auto (Bld) [Volum e fraction]Ordered By: Domingo Darby on 05-17-2025 Hematocrit (Bld) [Volume fraction] 36.5 % Low 37-47 [facility] Hemoglobin measurementOrdere d By: Domingo Darby on 05-17-2025 Hemoglobin (Bld) [Mass/Vol] 12.5 g/dL 12.0-15.0 [facility] Immature granulocytes/100 WB C Auto (Bld)Ordered By: Domingo Darby on 05-17-2025 Immature granulocytes/100 WBC (Bld) 0.500 % 0.0-0.9 [facility] Comment on above: IG% - Immature Granu locytes (promyelocytes, myelocytes and metamyelocytes) > 1% indicates that a LEFT SHIFT is Present. Ketones Test strip Ql (U)Ord ered By: Domingo Darby on 05-17-2025 Ketones Ql (U) Negative Negative [facility] MCV (mean corpuscular volume ) determinationOrdered By: Domingo Darby on 05-17-2025 MCV (RBC) [Entitic vol] 87.5 fL 81-[address] [facility] Mean corpuscular hemoglobin (MCH) determinationOrdered By: Domingo Darby on 05-17-2025 MCH (RBC) [Entitic mass] 30.0 pg 27.0-32.0 [facility] Mean corpuscular hemoglobin concentration (MCHC) determinationOrdered By: Domingo Darby on 05-17-2025 MCHC (RBC) [Mass/Vol] 34.2 g/dL 32-36 [facility] Mean platelet volume determi nationOrdered By: Domingo Darby on 05-17-2025 Platelet mean volume (Bld) [Entitic vol] 10.4 fL 6.2-12.0 [facility] Microscopic analysis of urin e for red blood cells (RBC)Ordered By: Domingo Darby on 05-17-2025 Microscopic analysis of urine for red blood cells (RBC) 0-5 SEEN /hpf 0-5 [facility] Monocyte percentageOrdered B y: Domingo Darby on 05-17-2025 Monocytes/100 WBC (Bld) 5.1 % 0-[address] [facility] Mucus LM Ql (Urine sed)Order ed By: Domingo Darby on 05-17-2025 Mucus Ql (Urine sed) 0 SEEN /hpf [facility] Neutrophil percentageOrdered By: Domingo Darby on 05-17-2025 Neutrophils/100 WBC (Bld) 78.8 % High 47-70 [facility] Nitrite Test strip Ql (U)Ord ered By: Domingo Darby on 05-17-2025 Nitrite Ql (U) Positive High Negative [facility] Nucleated red blood cell per centageOrdered By: Domingo Darby on 05-17-2025 Nucleated RBC/100 WBC (Bld) [Ratio] 0 % 0-5 [facility] Platelet countOrdered By: Kodak Darby on 05-17-2025 Platelets (Bld) [#/Vol] 181 10*3/uL 150-450 [facility] Potassium measurement (mass/ volume)Ordered By: Domingo Darby on 05-17-2025 Potassium (Unsp spec) [Mass/Vol] 3.9 mmol/L 3.3-5.1 [facility] Comment on above: Hemolysis present, R esults could be affected. Protein Test strip Ql (U)Ord ered By: Domingo Darby on 05-17-2025 Protein Ql (U) 30 mg/dl High Negative [facility] RBC Auto (Bld) [#/Vol]Ordere d By: Domingo Darby on 05-17-2025 RBC (Bld) [#/Vol] 4.17 10*6/uL Low 4.2-5.4 [facility] Serum creatinine measurement (mass/volume)Ordered By: Domingo Darby on 05-17-2025 Creatinine [Mass/Vol] 0.96 mg/dL 0.70-1.20 [facility] Serum glucose measurement (m ass/volume)Ordered By: Domingo Darby on 05-17-2025 Glucose [Mass/Vol] 97 mg/dL 70-99 [facility] Serum or plasma calcium thomas urement (mass/volume)Ordered By: Domingo Darby on 05-17-2025 Calcium [Mass/Vol] 9.0 mg/dL 7.6-11.0 [facility] Serum or plasma urea nitroge n measurement (mass/volume)Ordered By: Domingo Darby on 05-17-2025 Urea nitrogen [Mass/Vol] 15 mg/dL 4-19 [facility] Sodium levelOrdered By: Domingo Darby on 05-17-2025 Sodium [Moles/Vol] 142 mmol/L 133-145 [facility] Squamous epithelial cells de tection in urine sediment by light microscopyOrdered By: Domingo Darby on 05-17-2025 Epithelial cells.squamous LM Ql (Urine sed) 0-5 SEEN /hpf 5-10 [facility] Urinalysis, Completeon 05-17 EPI,SQUAMOUS 0-5 SEEN Normal 5-10 [facility] Comment on above: Order Comment: CLEAN CATCH Performed By: #### L 400.0001 ####[facility] [address] [place], [address] RBC 0-5 SEEN Normal 0-5 [facility] Comment on above: Order Comment: CLEAN CATCH Performed By: #### L 400.0001 ####[facility] [address] [place], [address] WBC 50-100 SEEN Normal 0-5 [facility] Comment on above: Order Comment: CLEAN CATCH Performed By: #### L 400.0001 ####[facility] [address] [place], [address] BACTERIA 0 SEEN Normal None Seen [facility] Comment on above: Order Comment: CLEAN CATCH Performed By: #### L 400.0001 ####[facility] [address] [place], [address] Mucus Ql (Urine sed) 0 SEEN Normal [facility] Comment on above: Order Comment: CLEAN CATCH Performed By: #### L 400.0001 ####[facility] [address] [place], [address] Urine clarityOrdered By: Rey Darby on 05-17-2025 Clarity (U) Clear Clear [facility] Urine color determinationOrd ered By: Domingo Darby on 05-17-2025 Color (U) Yellow Yellow [facility] Urine cultureOrdered By: Rey Darby on 05-17-2025 Bacteria identified Cx Nom (U) Escherichia coli Abnormal [facility] Urine glucose detectionOrder ed By: Domingo Darby on 05-17-2025 Glucose Ql (U) Normal mg/dl Normal [facility] Urine leukocyte esterase det ection by dipstickOrdered By: Domingo Darby on 05-17-2025 Leukocyte esterase Test strip Ql (U) 100 /ul High Negative [facility] Urine pHOrdered By: Domingo nicholas on 05-17-2025 pH (U) 6.0 [pH] 5.0 - 8.0 [facility] Urine sediment bacteria coun t by microscopy (number/high power field)Ordered By: Domingo Darby on 05-17-2025 Bacteria LM.HPF (Urine sed) [#/Area] 0 /[HPF] None Seen [facility] Urine specific gravity measu rementOrdered By: Domingo Darby on 05-17-2025 Specific gravity (U) [Rel density] 1.020 1.002-1.030 [facility] Urine urobilinogen measureme ntOrdered By: Domingo Darby on 05-17-2025 Urobilinogen Ql (U) Normal mg/dl Normal [facility] White blood cell (WBC) count Ordered By: Domingo Darby on 05-17-2025 WBC (Bld) [#/Vol] 8.8 10*3/uL 4.4-11.0 [facility] White blood cell countOrdere d By: Domingo Darby on 05-17-2025 White blood cell count 50-100 SEEN /hpf 0-5 [facility] CNPNon 05-07-2025 CNPN Telephone (INTMWS) MICHAELA BRANDT ([id number]) 1940 F Date Time Provider Department 05/07/25 DILLAN SANTIAGO During your visit today, we recorded the following information about you: Michaelle Tai, RN 05/07/2025 11:16 AM Signed [facility] reports pt has fine crackles in the bases of her lungs again. Reports patient denies Shortness of Breath, and the swelling has decreased. No fever. Otherwise, besides pt's anxiety she feels great. Asking if pcp wants to order a CXR? If pcp wants to order a CXR please fax order to Jose M Zheng at fax # [phone] Please advise and phone [facility] with reply: [phone] Dillan Santiago MD 05/11/2025 5:08 PM Signed Do not want chest xr just yet Is she taking her lasix as ordered, 2 times a week? RegardsDillan MD, M Robin, RN 05/12/2025 1:25 PM [...] LPN - Fully Assessed Reason for Visit: Critical access hospital requesting order [Other] Prescriptions as of 05/12/2025 [...] Encounter Status:Closed by Michaelle TAI on 05/12/25 [facility] 05-06-2025 CNOV Office Visit (GERIWR ) MICHAELA BRANDT ([id number]) 1940 F Date Time Provider Department 05/06/25 [...] is currently receiving home care services, including fci, physical therapy, and occupational therapy. She has aides assisting her from [phone] and [phone] daily. Due to financial constraints, the family [...] mg tablet Catheter (SELF-CATHETER, FEMALE) 14 Fr [facility] Health Maintenance DTaP,Tdap,Td Vaccine(1 - Tdap) Bone [...] (R33.9) Self-catheterize (more content not included)... [facility] (INT[facility]) ARYAMICHELLETraMICHAELA DORMAN ([id number]) 1940 F Date Time Provider Department 05/06/25 [...] Status:Closed by MIKE GUO on 05/07/25 Normal [facility] Comprehensive metabolic 2000 panelon 05-06-2025 Albumin [Mass/Vol] 3.8 g/dL Low 3.9-4.9 [facility] Comment on above: Order Comment: Speci men Type: BLOOD SPECIMENOrdering Facility: [facility] Address: [address] [place] [address] Performed By: #### 2 4323-8, 81615-5 ####[facility] LABCLIA [id number] [place] [address] [place] ALP [Catalytic activity/Vol] 100 U/L Normal 34-123 [facility] Comment on above: Order Comment: Speci men Type: BLOOD SPECIMENOrdering Facility: [facility] Address: [address] [place] [address] Performed By: #### 2 4323-8, 19890-2 ####[facility] LABCLIA [id number] [place] [id number] [place] ALT [Catalytic activity/Vol] 9 U/L Normal 7-38 [facility] Comment on above: Order Comment: Speci men Type: BLOOD SPECIMENOrdering Facility: [facility] Address: [address] [place] [address] Performed By: #### 2 4323-8, 72190-9 ####[facility] LABCLIA [id number] [place] [id number] [place] Anion gap [Moles/Vol] 11 mmol/L Normal 8-15 [facility] Comment on above: Order Comment: Speci men Type: BLOOD SPECIMENOrdering Facility: [facility] Address: [address] [place] [address] Performed By: #### 2 4323-8, 17268-0 ####[facility] LABCLIA [id number] [address] [address] [place] AST [Catalytic activity/Vol] 17 U/L Normal 13-35 [facility] Comment on above: Order Comment: Speci men Type: BLOOD SPECIMENOrdering Facility: [facility] Address: [address] [place] [address] Performed By: #### 2 4323-8, 64574-5 ####[facility] LABCLIA [id number] [place] [address] [place] Bilirubin [Mass/Vol] 0.7 mg/dL Normal 0.2-1.3 [facility] Comment on above: Order Comment: Speci men Type: BLOOD SPECIMENOrdering Facility: [facility] Address: [address] [place] [address] Performed By: #### 2 4323-8, 94154-1 ####[facility] LABCLIA [id number] [place] [id number] [place] Calcium [Mass/Vol] 9.2 mg/dL Normal 8.5-10.2 [facility] Comment on above: Order Comment: Speci men Type: BLOOD SPECIMENOrdering Facility: [facility] Address: [address] [place], [place] [id number] Performed By: #### 2 4323-8, 54601-6 ####[facility] LABIA [id number] [place] [id number] [place] [place] Chloride [Moles/Vol] 104 mmol/L Normal 98-107 [facility] Comment on above: Order Comment: Speci men Type: BLOOD SPECIMENOrdering Facility: [facility] Address: [address] [place], [place] [address] Performed By: #### 2 4323-8, 19556-7 ####[facility] LABIA [id number] [place] [id number] [place] CO2 [Moles/Vol] 24 mmol/L Normal 22-30 [facility] Comment on above: Order Comment: Speci men Type: BLOOD SPECIMENOrdering Facility: [facility] Address: [address] [place] [address] Performed By: #### 2 4323-8, 86197-3 ####[facility] LABIA [id number] [place] [address] [place] Creatinine [Mass/Vol] 0.70 mg/dL Normal 0.58-0.96 [facility] Comment on above: Order Comment: Speci men Type: BLOOD SPECIMENOrdering Facility: [facility] Address: [address] [place] [address] Performed By: #### 2 4323-8, 45701-5 ####[facility] LABIA [id number] [place] [address] [place] Creatinine and Glomerular filtration rate.predicted panel (S/P/Bld) 85 mL/min/1.73m??? Normal >=60 [facility] Comment on above: Order Comment: Speci men Type: BLOOD SPECIMENOrdering Facility: [facility] Address: [address] [place] [address] Result Comment: Linda mated Glomerular Filtration Rate [...] actual GFR. Performed By: #### 2 4323-8, 16066-7 ####[facility] LABIA [id number] [address] [address] [place] Glucose [Mass/Vol] 93 mg/dL Normal 74-99 [facility] Comment on above: Order Comment: Speci men Type: BLOOD SPECIMENOrdering Facility: [facility] Address: [address] [place] [address] Result Comment: The [place] Diabetes Association (ADA) provides guidance for cutoff [...] Standards of Medical Care in Diabetes 2016, [place] Diabetes Association. Diabetes Care. 2016.39(Suppl 1). Performed By: #### 2 4323-8, 91733-5 ####[facility] LABIA [id number] [place] [id number] [place] Potassium [Moles/Vol] 4.0 mmol/L Normal 3.7-5.1 [facility] Comment on above: Order Comment: Speci men Type: BLOOD SPECIMENOrdering Facility: [facility] Address: [address] [place] [address] Performed By: #### 2 4323-8, 27034-1 ####[facility] LABCLIA [id number] [place] [id number] [place] Protein [Mass/Vol] 6.6 g/dL Normal 6.3-8.0 [facility] Comment on above: Order Comment: Speci men Type: BLOOD SPECIMENOrdering Facility: [facility] Address: [address] [place] [address] Performed By: #### 2 4323-8, 02953-7 ####[facility] LABCLIA [id number] [place] [id number] [place] Sodium [Moles/Vol] 139 mmol/L Normal 136-144 [facility] Comment on above: Order Comment: Speci men Type: BLOOD SPECIMENOrdering Facility: [facility] Address: [address] [place] [address] Performed By: #### 2 4323-8, 60830-3 ####[facility] LABIA [id number] [place] [address] [place] Urea nitrogen [Mass/Vol] 14 mg/dL Normal 7-21 [facility] Comment on above: Order Comment: Selvini men Type: BLOOD SPECIMENOrdering Facility: [facility] Address: [address] [place] [address] Performed By: #### 2 4323-8, 34997-5 ####[facility] [id number] [place] [address] [place] HbA1c (Bld)on 05-06-2025 Average glucose Estimated from glycated hemoglobin (Bld) [Mass/Vol] 74 mg/dL Normal [facility] Comment on above: Order Comment: Marcel men Type: BLOOD SPECIMENOrdering Facility: [facility] Address: [address] [place] [address] Result Comment: eAG: (Estimated average glucose) is a calculated value from HgbA1c and is fundraising sale representative of the average blood glucose level in the last 2-3 month period. Performed By: #### 5 5454-3 ####[facility] [id number] [place] [address] [place] HbA1c (Bld) [Mass fraction] 4.2 % Low 4.3-5.6 [facility] Comment on above: Order Comment: Selvini men Type: BLOOD SPECIMENOrdering Facility: [facility] Address: [address] [place] [address] Result Comment: [place] Diabetes Association guidelines indicate that patients with HgbA1c in the range 5.7-6.4% are at increased risk for development of diabetes, and intervention by lifestyle modification may be beneficial. HgbA1c greater or equal to 6.5% is considered diagnostic of diabetes. Performed By: #### 5 5454-3 ####[facility] [id number] [address] OF [facility] NT-proBNP [facility] 05-06 Natriuretic peptide.B prohormone N-Terminal [Mass/Vol] 113 pg/mL Normal <450 [facility] Comment on above: Order Comment: Speci men Type: BLOOD SPECIMENOrdering Facility: [facility] Address: [address] [place] [address] Performed By: #### 2 4323-8, 68756-5 ####[facility] [id number] [address] CNPNon 05-04-2025 [facility] MICHAELA BRANDT ([id number]) 1940 F Date Time Provider Department 05/04/25 [facility] During your visit today, we recorded the following information about you: Nisha Clayton LPN 05/04/2025 8:50 AM Signed Brittni with [facility] calls in regards to TE from 04/24: Solange Craig RN MG 04/24/25 11:13 AM Note Brissa from [facility] is calling due to she saw [...] 4:11 PM Signed Detailed message on secure SupportBeemail. Pamela Power MA May 04, 2025 4:11 [...] Status:Closed by PAMELA POWER on 05/04/25 Normal [facility] CNPNon 04-27-2025 CNPN Telephone (UROLWS) RIKKIMICHAELA ([id number]) 1940 F Date Time Provider Department 04/27/25 [...] of orders. Please fax to Savanah at [facility] [phone]. JAIRON notes faxed through [employer]. EVON Miller Courtney, ZACHARIAH 04/27/2025 4:19 PM Signed JAIRON 12/23/24 Nusrat Crespo LPN 05/04/2025 9:05 AM Signed Tom Baltazar PA-C You3 days ago Yejitendra I though Silas was doing this VADIM Stanford, LIANG, NASIR You Tom Baltazar PA-C5 days ago KURTIS Hayes, do you want this sent to PCP to address? Patient was seen previously by you you once and was to [facility]. RAMIREZ Valdes Chitra, MD 05/04/2025 4:02 PM Signed I dont usually do the catheters and have not done for her. I would like Urology to take care of this Dillan Patel MD, Kimberly, LPN 05/06/2025 10:03 AM Signed Tom Baltazar PA-C You; [facility] Pool; Desi Bergman, ZACHARIAH1 hour ago (8:44 AM) Please write orders and fax to [facility] today id needed [facility] VADIM Stanford MT, PA-C Orders pended. Please review and sign. RAMIREZ Valdes Kimberly, LPN 05/06/2025 10:03 AM Signed Addended by: NUSRAT CRESPO on: 05/06/2025 10:03 AM Modules accepted: Tom Monk PA-C 05/06/2025 10:48 AM Signed Addended by: TOM BALTAZAR on: 05/06/2025 10:48 AM Modules accepted: Dillan Estrella MD 05/06/2025 12:05 PM Signed Here is the trail of the catheter discussion. Regards, Nusrat Cui MD, LPN 05/06/2025 3:41 PM Signed Orders, urology office notes faxed to [facility]. RAMIREZ Valdes Kimberly, LPN 05/06/2025 3:50 PM Signed Called [facility], phone number for Savanah. Informed orders/office [...] VADIM Stanford MT, PA-C Called Savanah with [facility] on secured line- no answer. Left message from Tom. Nusrat Crespo LPN Allergies As of Date: 04/27/2025 (No Known Allergies) Date Reviewed: 04/17/2025 Reviewed by: Mike Guo MA - Fully Assessed Reason for Visit: Orders [681] Cmt: Self catheter Primary Visit Diagnosis:Urine retention [R33.9] Order(s):CATHETER INSERT-LIZARRAGA [03514DGW] Order #: [id number] STANDING BEDSIDE DRAINAGE BAG [[id number]] Order #: [id number] STANDING sodium chloride 0.9 % IRRIGATIONIrrigate 60 mL as instructed once daily as needed.Disp: 1999 mLRfl: 3 BEDSIDE DRAINAGE BAG [[id number]] Order #: [id number] Prescriptions as of 05/07/2025 - sodium chloride [...] (more content not included)... Normal [facility] CNPNon 04-24-2025 CNPN Telephone (COUMWS) MICHAELA BRANDT ([id number]) 1940 F Date Time Provider Department 04/24/25 DILLAN SANTIAGO During your visit today, we recorded the following information about you: Solange Craig, RN 04/24/2025 11:13 AM Signed Brissa from [facility] is calling due to she saw patient [...] if she should take her mother to [facility] ER or a [facility] ER. She states since she is affiliated with [facility] would it be in her best interest to just go to the [facility]. I told her that is up to her, but the closest one would be [facility], or [facility]. She said if they went to [facility] they could always get her transfer [...] 2025. - Catheter (SELF-CATHETER, FEMALE) [facility] Self [facility] four times daily - [...] lower extremities [R29.898] 04/17/2025 Encounter Status:Closed by MARIA FERNANDATWINSOLANGE on 04/28/25 Normal [facility] CNPNon 04-21-2025 [facility] ARYAMICHAELA MARTINEZ ([id number]) 1940 F Date Time Provider Department 04/21/25 DILLAN SANTIAGO [facility] During your visit today, we recorded the following information about you: Nisha Clayton LPN 04/21/2025 1:08 PM Signed Larisa with [facility] calls to report she saw pt [...] Encounter Status:Closed by MCKENZIE LOMBARDO on 04/22/25 [facility] Markus 04-20-2025 [facility] Telephone (INTMWS) MICHAELA BRANDT ([id number]) 1940 F Date Time Provider Department 04/20/25 DILLAN SANTIAGO INTMWS During your visit today, we recorded the following information about you: Gabi Mcelroy, ZACHARIAH 04/20/2025 3:09 PM Signed My CAO with [...] could fax that to Dr Santiago at [phone]. ZACHARIAH Antonio Beth, LPN 04/20/2025 3:36 PM Signed My calling back she will fax list from the SNF and will have to update med list with her admission notes to home health and fax that when she is able. Josy Saucedo RN 04/20/2025 4:08 PM Signed Call received from nurse My at [facility], regarding orders for Pt (see below notation). [facility] nurse observed Pt self-cath, and she was not cleansing herself well. Pt's daughter is voicing concern about Pt's inability to do this at home. [facility] is requesting order for chronic indwelling lizarraga cathether, 16F. Last OV with urology - JORI AlvarezC: 12/23/2024 [facility] phone: [facility] office phone: Fax number for orders: Josy Saucedo RN April 20, 2025 4:07 PM Dillan Santiago MD 04/20/2025 5:03 PM Signed Agree Does she need orders for the 16 turkish indwelling lizarraga? Thanks Regards, Gabi Cesar MD, RN 04/20/2025 5:14 PM Signed [facility] with [facility] called and is notified of providers message. She voices understanding and reports that yes she does need the orders for the 16 turkish indwelling lizarraga. She states she can take [...] a detailed voicemail notifying My [facility] with [facility] of providers message. Clinic phone number was [...] hemiarthroplasty [Z9 (more content not included)... Normal [facility] CNOVon 04-17-2025 CNOV Office Visit (INTMWS ) MICHAELA BRANDT ([id number]) 1940 F Date Time Provider Department 04/17/25 [...] is a positive sign for healing. - intermediate will be arranged to clean and care [...] you have experienced in the past. - intermediate will assist with catheter care, including monthly [...] These were helpful during your stay at [facility]. - Mental Health: - You are experiencing [...] are awaiting an updated medication list from [facility] to confirm all current prescriptions and dosages. - Living Arrangements: - Your daughter is exploring assisted living options for you, including a facility in [facility]. This will require private pay for two [...] - A referral has been sent to [facility] for fci, PT, and OT. They will also assess your eligibility for additional home health aide services. - Your bob, jaxon is working with [facility] and other [...] support your care needs. Next Steps: - intermediate, PT, and OT will be arranged through [...] transitional care (more content not included)... [facility] (INT[facility] MICHAELA BRANDT ([id number]) 1940 F Date Time Provider Department 04/17/25 DILLAN SANTIAGO During your visit today, we recorded the following information about you: Mike Guo MA 04/17/2025 11:44 AM Signed TC to nurse at [facility] to obtain current med list. Unable to [...] Encounter Status:Closed by GABI MCELROY on 04/20/25 [facility] Telephone (INTMWS) ARYAMICHAELA MARTINEZ ([id number]) 1940 F Date Time Provider Department 04/17/25 DILLAN SANTIAGO INTMWS During your visit today, we recorded the following information about you: Gabi Mcelroy RN 04/17/2025 10:06 AM Signed Wes with [facility] called in and reports they received a referral for SN/PT/OT. She is asking if provider will fallow. Please call back. ZACHARIAH Antonio Chitra, MD 04/17/2025 10:43 AM Signed Will follow iDllan Patel MD, Amanda, RN 04/17/2025 10:54 AM Signed Wes ESTRADA called and is notified of providers [...] Status:Closed by GABI MCELROY on 04/17/25 [facility] MICHAELA BRANDT ([id number]) 1940 F Date Time Provider Department 04/17/25 [facility] During your visit today, we recorded the following information about you: [facility] Montgomery MSW 04/17/2025 1:00 PM Signed This Janna received consult and will work on reaching out to patient daughter to discuss social service needs. This Janna also notes that there is a message from today from [facility] noting orders for SN,PT,OT. It looks like Dr. Santiago [facility] to [facility]. [facility] Montgomery MSW 04/17/2025 1:49 PM Signed Janna tried call to patient daughter and vmail is full, unable to leave message. Janna will try call another time. [facility] Montgomery MSW 04/17/2025 3:19 PM Signed Janna spoke with patient daughter in regards to Home Health questions and also current housing [place] options. Maribeth and Janna discussed that [facility] an [facility] for home healthcare. Janna left message for [facility] referral line to call this Sw back to confirm if they will be serving patient home healthcare needs. Maribeth notes that [facility] will be providing home care director next week when patient stays at her apt. Maribeth notes that patient will then be coming to stay with her,until opening at [facility]. Maribeth notes that she is working on getting bedroom ready at there home for patient to come and stay with he. There is a wait list at [facility]. Sw will let patient daughter know what [...] Status:Closed by DILLAN SANTIAGO on 04/17/25 Normal [facility] Basic Metabolic Profile (BMP )on 04-09-2025 BUN Normal 4-19 [facility] Comment on above: Result Comment: Canc elled via OM: Order cancelled - Patient discharged Performed By: #### L 100.0100, L500.2500 ####[facility] [address] [place], [address] BUN/CRE Normal 10-20 [facility] Comment on above: Result Comment: Canc elled via OM: Order cancelled - Patient discharged Performed By: #### L 100.0100, L500.2500 ####[facility] [address] [place], [address] Calcium Normal 7.6-11.0 [facility] Comment on above: Result Comment: Canc elled via OM: Order cancelled - Patient discharged Performed By: #### L 100.0100, L500.2500 ####[facility] [address] [place], [address] CL Normal 98-108 [facility] Comment on above: Result Comment: Canc elled via OM: Order cancelled - Patient discharged Performed By: #### L 100.0100, L500.2500 ####[facility] [address] [place], [address] CO2 Normal 21.0-32.0 [facility] Comment on above: Result Comment: Canc elled via OM: Order cancelled - Patient discharged Performed By: #### L 100.0100, L500.2500 ####[facility] [address] [place], [address] CREAT,SERUM Normal 0.70-1.20 [facility] Comment on above: Result Comment: Canc elled via OM: Order cancelled - Patient discharged Performed By: #### L 100.0100, L500.2500 ####[facility] [address] [place], [address] eGFR Normal >60 [facility] Comment on above: Result Comment: Canc elled via OM: Order cancelled - Patient discharged Performed By: #### L 100.0100, L500.2500 ####[facility] [address] [place], [address] GAP Normal 5-15 [facility] Comment on above: Result Comment: Canc elled via OM: Order cancelled - Patient discharged Performed By: #### L 100.0100, L500.2500 ####[facility] [address] [place], [address] GLU Normal 70-99 [facility] Comment on above: Result Comment: Canc elled via OM: Order cancelled - Patient discharged Performed By: #### L 100.0100, L500.2500 ####[facility] [address] [place], [address] Potassium Normal 3.3-5.1 [facility] Comment on above: Result Comment: Canc elled via OM: Order cancelled - Patient discharged Performed By: #### L 100.0100, L500.2500 ####[facility] [address] [place], [address] Basic Metabolic Profile (BMP) Normal 133-145 [facility] Comment on above: Result Comment: Canc elled via OM: Order cancelled - Patient discharged Performed By: #### L 100.0100, L500.2500 ####[facility] [address] [place], [address] CBC W/Diff, Automatedon 05-2 Absolute Neut Normal 2.0-7.7 [facility] Comment on above: Result Comment: Canc elled via OM: Order cancelled - Patient discharged Performed By: #### L 100.0100, L500.2500 ####[facility] [address] [place], [address] HCT Normal 37-47 [facility] Comment on above: Result Comment: Canc elled via OM: Order cancelled - Patient discharged Performed By: #### L 100.0100, L500.2500 ####[facility] [address] [place], [address] HGB Normal 12.0-15.0 [facility] Comment on above: Result Comment: Canc elled via OM: Order cancelled - Patient discharged Performed By: #### L 100.0100, L500.2500 ####[facility] [address] [place], [address] MCH Normal 27.0-32.0 [facility] Comment on above: Result Comment: Canc elled via OM: Order cancelled - Patient discharged Performed By: #### L 100.0100, L500.2500 ####[facility] [address] [place], [address] MCHC Normal 32-36 [facility] Comment on above: Result Comment: Canc elled via OM: Order cancelled - Patient discharged Performed By: #### L 100.0100, L500.2500 ####[facility] [address] [place], [address] MCV Normal 81-99 [facility] Comment on above: Result Comment: Canc elled via OM: Order cancelled - Patient discharged Performed By: #### L 100.0100, L500.2500 ####[facility] [address] [place], [address] NEUT% Normal 47-70 [facility] Comment on above: Result Comment: Canc elled via OM: Order cancelled - Patient discharged Performed By: #### L 100.0100, L500.2500 ####[facility] [address] [place], [address] PLT Normal 150-450 [facility] Comment on above: Result Comment: Canc elled via OM: Order cancelled - Patient discharged Performed By: #### L 100.0100, L500.2500 ####[facility] [address] [place], [address] RBC Normal 4.2-5.4 [facility] Comment on above: Result Comment: Canc elled via OM: Order cancelled - Patient discharged Performed By: #### L 100.0100, L500.2500 ####[facility] [address] [place], [address] RDW CV Normal 11.6-14.6 [facility] Comment on above: Result Comment: Canc elled via OM: Order cancelled - Patient discharged Performed By: #### L 100.0100, L500.2500 ####[facility] [address] [place], [address] RDW SD Normal 35.1-43.9 [facility] Comment on above: Result Comment: Canc elled via OM: Order cancelled - Patient discharged Performed By: #### L 100.0100, L500.2500 ####[facility] [address] [place], [address] WBC Normal 4.4-11.0 [facility] Comment on above: Result Comment: Canc elled via OM: Order cancelled - Patient discharged Performed By: #### L 100.0100, L500.2500 ####[facility] [address] [place], [address] Absolute lymphocyte countOrd ered By: Adele Gusman on 04-06-2025 Lymphocytes Auto (Unsp spec) [#/Vol] 1.67 10*3/uL 0.83-4.51 [facility] Absolute neutrophil countOrd ered By: Adele Gusman on 04-06-2025 Neutrophils (Bld) [#/Vol] 6.8 10*3/uL 2.0-7.7 [facility] Anion gap in Serum or Plasma Ordered By: Adele Gusman on 04-06-2025 Anion gap [Moles/Vol] 10 mmol/L 5-15 [facility] Automated lymphocyte count a s percentage of total leukocytesOrdered By: Adele Gusman on 04-06-2025 Lymphocytes/100 WBC Auto (Unsp spec) 17.8 % Low 19-41 [facility] BUN/creatinine ratioOrdered By: Adele Gusman on 04-06-2025 Urea nitrogen/Creatinine [Mass ratio] 18.7 mg/mg 10-20 [facility] Basophil percentageOrdered B y: Adele Gusman on 04-06-2025 Basophils/100 WBC (Bld) 0.4 % 0-[address] [facility] Carbon dioxide, total [Moles /volume] in Central venous bloodOrdered By: Adele Gusman on 04-06-2025 CO2 [Moles/Vol] 25.7 mmol/L 21.0-32.0 [facility] Chloride assayOrdered By: Jennifer Gusman on 04-06-2025 Chloride [Moles/Vol] 106 mmol/L 98-108 [facility] Eosinophil percentageOrdered By: Adele Gusman on 04-06-2025 Eosinophils/100 WBC (Bld) 1.2 % 0-5 [facility] Erythrocyte distribution wid th ratioOrdered By: Adele Gusman on 04-06-2025 Erythrocyte distribution width (RBC) [Ratio] 13.7 % 11.6-14.6 [facility] Erythrocyte distribution wid th standard deviationOrdered By: elsa Gusman on 04-06-2025 Erythrocyte distribution width (RBC) [Ratio] 46.9 fl High 35.1-43.9 [facility] Glomerular filtration rate ( GFR) estimation/1.73 sq m using serum, plasma, or whole bOrdered By: Adele Gusman on 04-06-2025 GFR/1.73 sq M.predicted among non-blacks MDRD (S/P/Bld) [Vol rate/Area] 74 mL/min/{1.73_m2} >60 [facility] Comment on above: mL/min/1.73m2 CKD-EP I Creatinine Equation (2020) Hematocrit Auto (Bld) [Volum e fraction]Ordered By: elsa Gusman on 04-06-2025 Hematocrit (Bld) [Volume fraction] 33.6 % Low 37-47 [facility] Hemoglobin measurementOrdere d By: elsa Gusman on 04-06-2025 Hemoglobin (Bld) [Mass/Vol] 11.4 g/dL Low 12.0-15.0 [facility] Immature granulocytes/100 WB C Auto (Bld)Ordered By: macariocastletonmaxim Gusman on 04-06-2025 Immature granulocytes/100 WBC (Bld) 1.000 % High 0.0-0.9 [facility] Comment on above: IG% - Immature Granu locytes (promyelocytes, myelocytes and metamyelocytes) > 1% indicates that a LEFT SHIFT is Present. MCV (mean corpuscular volume ) determinationOrdered By: Adele Gusman on 04-06-2025 MCV (RBC) [Entitic vol] 91.8 fL 81-[address] [facility] Mean corpuscular hemoglobin (MCH) determinationOrdered By: macariocastletonmaxim Gusman on 04-06-2025 MCH (RBC) [Entitic mass] 31.1 pg 27.0-32.0 [facility] Mean corpuscular hemoglobin concentration (MCHC) determinationOrdered By: macariocastletonmaxim Gusman on 04-06-2025 MCHC (RBC) [Mass/Vol] 33.9 g/dL 32-36 [facility] Mean platelet volume determi nationOrdered By: macariocastletonmaxim Gusman on 04-06-2025 Platelet mean volume (Bld) [Entitic vol] 10.9 fL 6.2-12.0 [facility] Monocyte percentageOrdered B y: Adele Gusman on 04-06-2025 Monocytes/100 WBC (Bld) 7.3 % 0-[address] [facility] Neutrophil percentageOrdered By: Adele Gusman on 04-06-2025 Neutrophils/100 WBC (Bld) 72.3 % High 47-70 [facility] Nucleated red blood cell per centageOrdered By: Adele Gusman on 04-06-2025 Nucleated RBC/100 WBC (Bld) [Ratio] 0 % 0-5 [facility] Platelet countOrdered By: Jennifer Gusman on 04-06-2025 Platelets (Bld) [#/Vol] 160 10*3/uL 150-450 [facility] Potassium measurement (mass/ volume)Ordered By: Adele Gusman on 04-06-2025 Potassium (Unsp spec) [Mass/Vol] 3.6 mmol/L 3.3-5.1 [facility] RBC Auto (Bld) [#/Vol]Ordere d By: Adele Gusman on 04-06-2025 RBC (Bld) [#/Vol] 3.66 10*6/uL Low 4.2-5.4 [facility] Serum creatinine measurement (mass/volume)Ordered By: Adele Gusman on 04-06-2025 Creatinine [Mass/Vol] 0.79 mg/dL 0.70-1.20 [facility] Serum glucose measurement (m ass/volume)Ordered By: Adele Gusman on 04-06-2025 Glucose [Mass/Vol] 90 mg/dL 70-99 [facility] Serum or plasma calcium thomas urement (mass/volume)Ordered By: Adele Gusman on 04-06-2025 Calcium [Mass/Vol] 8.9 mg/dL 7.6-11.0 [facility] Serum or plasma urea nitroge n measurement (mass/volume)Ordered By: Adele Gusman on 04-06-2025 Urea nitrogen [Mass/Vol] 15 mg/dL 4-19 [facility] Sodium levelOrdered By: Sharlene hernandezlorainedayron Gusman on 04-06-2025 Sodium [Moles/Vol] 142 mmol/L 133-145 [facility] White blood cell (WBC) count Ordered By: Adele Gusman on 04-06-2025 WBC (Bld) [#/Vol] 9.4 10*3/uL 4.4-11.0 [facility] Basic Metabolic Profile (BMP )on 04-02-2025 BUN Normal -19 [facility] Comment on above: Result Comment: Canc elled via OM: Order cancelled - Patient discharged Performed By: #### L 100.0100, L500.2500 ####[facility] [address] [facility] [address] BUN/CRE Normal 10-20 [facility] Comment on above: Result Comment: Canc elled via OM: Order cancelled - Patient discharged Performed By: #### L 100.0100, L500.2500 ####[facility] [address] [facility] [address] Calcium Normal 7.6-11.0 [facility] Comment on above: Result Comment: Canc elled via OM: Order cancelled - Patient discharged Performed By: #### L 100.0100, L500.2500 ####[facility] [address] [place], [address] CL Normal 98-108 [facility] Comment on above: Result Comment: Canc elled via OM: Order cancelled - Patient discharged Performed By: #### L 100.0100, L500.2500 ####[facility] [address] [place], [address] CO2 Normal 21.0-32.0 [facility] Comment on above: Result Comment: Canc elled via OM: Order cancelled - Patient discharged Performed By: #### L 100.0100, L500.2500 ####[facility] [address] [place], [address] CREAT,SERUM Normal 0.70-1.20 [facility] Comment on above: Result Comment: Canc elled via OM: Order cancelled - Patient discharged Performed By: #### L 100.0100, L500.2500 ####[facility] [address] [place], [address] eGFR Normal >60 [facility] Comment on above: Result Comment: Canc elled via OM: Order cancelled - Patient discharged Performed By: #### L 100.0100, L500.2500 ####[facility] [address] [place], [address] GAP Normal 5-15 [facility] Comment on above: Result Comment: Canc elled via OM: Order cancelled - Patient discharged Performed By: #### L 100.0100, L500.2500 ####[facility] [address] [place], [address] GLU Normal 70-99 [facility] Comment on above: Result Comment: Canc elled via OM: Order cancelled - Patient discharged Performed By: #### L 100.0100, L500.2500 ####[facility] [address] [place], [address] Potassium Normal 3.3-5.1 [facility] Comment on above: Result Comment: Canc elled via OM: Order cancelled - Patient discharged Performed By: #### L 100.0100, L500.2500 ####[facility] [address] [place], [address] Basic Metabolic Profile (BMP) Normal 133-145 [facility] Comment on above: Result Comment: Canc elled via OM: Order cancelled - Patient discharged Performed By: #### L 100.0100, L500.2500 ####[facility] [address] [place], [address] CBC W/Diff, Automatedon 05-1 Absolute Neut Normal 2.0-7.7 [facility] Comment on above: Result Comment: Canc elled via OM: Order cancelled - Patient discharged Performed By: #### L 100.0100, L500.2500 ####[facility] [address] [place], [address] HCT Normal 37-47 [facility] Comment on above: Result Comment: Canc elled via OM: Order cancelled - Patient discharged Performed By: #### L 100.0100, L500.2500 ####[facility] [address] [place], [address] HGB Normal 12.0-15.0 [facility] Comment on above: Result Comment: Canc elled via OM: Order cancelled - Patient discharged Performed By: #### L 100.0100, L500.2500 ####[facility] [address] [place], [address] MCH Normal 27.0-32.0 [facility] Comment on above: Result Comment: Canc elled via OM: Order cancelled - Patient discharged Performed By: #### L 100.0100, L500.2500 ####[facility] [address] [place], [address] MCHC Normal 32-36 [facility] Comment on above: Result Comment: Canc elled via OM: Order cancelled - Patient discharged Performed By: #### L 100.0100, L500.2500 ####[facility] [address] [place], [address] MCV Normal 81-99 [facility] Comment on above: Result Comment: Canc elled via OM: Order cancelled - Patient discharged Performed By: #### L 100.0100, L500.2500 ####[facility] [address] [place], [address] NEUT% Normal 47-70 [facility] Comment on above: Result Comment: Canc elled via OM: Order cancelled - Patient discharged Performed By: #### L 100.0100, L500.2500 ####[facility] [address] [place], [address] PLT Normal 150-450 [facility] Comment on above: Result Comment: Canc elled via OM: Order cancelled - Patient discharged Performed By: #### L 100.0100, L500.2500 ####[facility] [address] [place], [address] RBC Normal 4.2-5.4 [facility] Comment on above: Result Comment: Canc elled via OM: Order cancelled - Patient discharged Performed By: #### L 100.0100, L500.2500 ####[facility] [address] [place], [address] RDW CV Normal 11.6-14.6 [facility] Comment on above: Result Comment: Canc elled via OM: Order cancelled - Patient discharged Performed By: #### L 100.0100, L500.2500 ####[facility] [address] [place], [address] RDW SD Normal 35.1-43.9 [facility] Comment on above: Result Comment: Canc elled via OM: Order cancelled - Patient discharged Performed By: #### L 100.0100, L500.2500 ####[facility] [address] [place], [address] WBC Normal 4.4-11.0 [facility] Comment on above: Result Comment: Canc elled via OM: Order cancelled - Patient discharged Performed By: #### L 100.0100, L500.2500 ####[facility] [address] [place], [address] Absolute lymphocyte countOrd ered By: Daya Morgan on 03-30-2025 Lymphocytes Auto (Unsp spec) [#/Vol] 1.33 10*3/uL 0.83-4.51 [facility] Absolute neutrophil countOrd ered By: Daya Morgan on 03-30-2025 Neutrophils (Bld) [#/Vol] 6.3 10*3/uL 2.0-7.7 [facility] Anion gap in Serum or Plasma Ordered By: Daya Morgan on 03-30-2025 Anion gap [Moles/Vol] 9 mmol/L 5-15 [facility] Automated lymphocyte count a s percentage of total leukocytesOrdered By: Daya Morgan on 03-30-2025 Lymphocytes/100 WBC Auto (Unsp spec) 15.4 % Low 19-41 [facility] BUN/creatinine ratioOrdered By: Daya Morgan on 03-30-2025 Urea nitrogen/Creatinine [Mass ratio] 14.8 mg/mg 10-20 [facility] Basophil percentageOrdered B y: Daya Morgan on 03-30-2025 Basophils/100 WBC (Bld) 0.7 % 0-[address] [facility] Carbon dioxide, total [Moles /volume] in Central venous bloodOrdered By: Daya Morgan on 03-30-2025 CO2 [Moles/Vol] 28.0 mmol/L 21.0-32.0 [facility] Chloride assayOrdered By: Will Morgan on 03-30-2025 Chloride [Moles/Vol] 105 mmol/L 98-108 [facility] Eosinophil percentageOrdered By: Daya Morgan on 03-30-2025 Eosinophils/100 WBC (Bld) 1.4 % 0-5 [facility] Erythrocyte distribution wid th ratioOrdered By: Daya Morgan on 03-30-2025 Erythrocyte distribution width (RBC) [Ratio] 14.2 % 11.6-14.6 [facility] Erythrocyte distribution wid th standard deviationOrdered By: Daya Morgan on 03-30-2025 Erythrocyte distribution width (RBC) [Ratio] 48.0 fl High 35.1-43.9 [facility] Glomerular filtration rate ( GFR) estimation/1.73 sq m using serum, plasma, or whole bOrdered By: Daya Morgan on 03-30-2025 GFR/1.73 sq M.predicted among non-blacks MDRD (S/P/Bld) [Vol rate/Area] 70 mL/min/{1.73_m2} >60 [facility] Comment on above: mL/min/1.73m2 CKD-EP I Creatinine Equation (2020) Hematocrit Auto (Bld) [Volum e fraction]Ordered By: Daya Morgan on 03-30-2025 Hematocrit (Bld) [Volume fraction] 34.1 % Low 37-47 [facility] Hemoglobin measurementOrdere d By: Daya Morgan on 03-30-2025 Hemoglobin (Bld) [Mass/Vol] 11.3 g/dL Low 12.0-15.0 [facility] Immature granulocytes/100 WB C Auto (Bld)Ordered By: Daya Morgan on 03-30-2025 Immature granulocytes/100 WBC (Bld) 0.900 % 0.0-0.9 [facility] Comment on above: IG% - Immature Granu locytes (promyelocytes, myelocytes and metamyelocytes) > 1% indicates that a LEFT SHIFT is Present. MCV (mean corpuscular volume ) determinationOrdered By: Daya Morgan on 03-30-2025 MCV (RBC) [Entitic vol] 93.7 fL 81-[address] [facility] Mean corpuscular hemoglobin (MCH) determinationOrdered By: Daya Morgan on 03-30-2025 MCH (RBC) [Entitic mass] 31.0 pg 27.0-32.0 [facility] Mean corpuscular hemoglobin concentration (MCHC) determinationOrdered By: Daya Morgan on 03-30-2025 MCHC (RBC) [Mass/Vol] 33.1 g/dL 32-36 [facility] Mean platelet volume determi nationOrdered By: Daya oMrgan on 03-30-2025 Platelet mean volume (Bld) [Entitic vol] 10.8 fL 6.2-12.0 [facility] Monocyte percentageOrdered B y: Daya Morgan on 03-30-2025 Monocytes/100 WBC (Bld) 8.2 % 0-[address] [facility] Neutrophil percentageOrdered By: Daya Morgan on 03-30-2025 Neutrophils/100 WBC (Bld) 73.4 % High 47-70 [facility] Nucleated red blood cell per centageOrdered By: Daya Morgan on 03-30-2025 Nucleated RBC/100 WBC (Bld) [Ratio] 0 % 0-5 [facility] Platelet countOrdered By: Will Morgan on 03-30-2025 Platelets (Bld) [#/Vol] 160 10*3/uL 150-450 [facility] Potassium measurement (mass/ volume)Ordered By: Daya Morgan on 03-30-2025 Potassium (Unsp spec) [Mass/Vol] 3.6 mmol/L 3.3-5.1 [facility] RBC Auto (Bld) [#/Vol]Ordere d By: Daya Morgan on 03-30-2025 RBC (Bld) [#/Vol] 3.64 10*6/uL Low 4.2-5.4 [facility] Serum creatinine measurement (mass/volume)Ordered By: Daya Morgan on 03-30-2025 Creatinine [Mass/Vol] 0.83 mg/dL 0.70-1.20 [facility] Serum glucose measurement (m ass/volume)Ordered By: Daya Morgan on 03-30-2025 Glucose [Mass/Vol] 91 mg/dL 70-99 [facility] Serum or plasma calcium thomas urement (mass/volume)Ordered By: Daya Morgan on 03-30-2025 Calcium [Mass/Vol] 9.0 mg/dL 7.6-11.0 [facility] Serum or plasma urea nitroge n measurement (mass/volume)Ordered By: Daya Morgan on 03-30-2025 Urea nitrogen [Mass/Vol] 12 mg/dL 4- [facility] Sodium levelOrdered By: Katarina Morgan on 03-30-2025 Sodium [Moles/Vol] 141 mmol/L 133-145 [facility] White blood cell (WBC) count Ordered By: Daya Morgan on 03-30-2025 WBC (Bld) [#/Vol] 8.6 10*3/uL 4.4-11.0 [facility] Basic Metabolic Profile (BMP )on 03-26-2025 BUN Normal - [facility] Comment on above: Result Comment: Canc elled via OM: Order cancelled - Patient discharged Performed By: #### L 100.0100, L500.2500 ####[facility] [address] [place], [address] BUN/CRE Normal 10- [facility] Comment on above: Result Comment: Canc elled via OM: Order cancelled - Patient discharged Performed By: #### L 100.0100, L500.2500 ####[facility] [address] [place], [address] Calcium Normal 7.6-11.0 [facility] Comment on above: Result Comment: Canc elled via OM: Order cancelled - Patient discharged Performed By: #### L 100.0100, L500.2500 ####[facility] [address] [place], [address] CL Normal 98-108 [facility] Comment on above: Result Comment: Canc elled via OM: Order cancelled - Patient discharged Performed By: #### L 100.0100, L500.2500 ####[facility] [address] [place], [address] CO2 Normal 21.0-32.0 [facility] Comment on above: Result Comment: Canc elled via OM: Order cancelled - Patient discharged Performed By: #### L 100.0100, L500.2500 ####[facility] [address] [place], [address] CREAT,SERUM Normal 0.70-1.20 [facility] Comment on above: Result Comment: Canc elled via OM: Order cancelled - Patient discharged Performed By: #### L 100.0100, L500.2500 ####[facility] [address] [place], [address] eGFR Normal >60 [facility] Comment on above: Result Comment: Canc elled via OM: Order cancelled - Patient discharged Performed By: #### L 100.0100, L500.2500 ####[facility] [address] [place], [address] GAP Normal 5-15 [facility] Comment on above: Result Comment: Canc elled via OM: Order cancelled - Patient discharged Performed By: #### L 100.0100, L500.2500 ####[facility] [address] [place], [address] GLU Normal 70-99 [facility] Comment on above: Result Comment: Canc elled via OM: Order cancelled - Patient discharged Performed By: #### L 100.0100, L500.2500 ####[facility] [address] [place], [address] Potassium Normal 3.3-5.1 [facility] Comment on above: Result Comment: Canc elled via OM: Order cancelled - Patient discharged Performed By: #### L 100.0100, L500.2500 ####[facility] [address] [place], [address] Basic Metabolic Profile (BMP) Normal 133-145 [facility] Comment on above: Result Comment: Canc elled via OM: Order cancelled - Patient discharged Performed By: #### L 100.0100, L500.2500 ####[facility] [address] [place], [address] CBC W/Diff, Automatedon 05-0 8-2024 Absolute Neut Normal 2.0-7.7 [facility] Comment on above: Result Comment: Canc elled via OM: Order cancelled - Patient discharged Performed By: #### L 100.0100, L500.2500 ####[facility] [address] [place], [address] HCT Normal 37-47 [facility] Comment on above: Result Comment: Canc elled via OM: Order cancelled - Patient discharged Performed By: #### L 100.0100, L500.2500 ####[facility] [address] [place], [address] HGB Normal 12.0-15.0 [facility] Comment on above: Result Comment: Canc elled via OM: Order cancelled - Patient discharged Performed By: #### L 100.0100, L500.2500 ####[facility] [address] [place], [address] MCH Normal 27.0-32.0 [facility] Comment on above: Result Comment: Canc elled via OM: Order cancelled - Patient discharged Performed By: #### L 100.0100, L500.2500 ####[facility] [address] [place], [address] MCHC Normal 32-36 [facility] Comment on above: Result Comment: Canc elled via OM: Order cancelled - Patient discharged Performed By: #### L 100.0100, L500.2500 ####[facility] [address] [place], [address] MCV Normal 81-99 [facility] Comment on above: Result Comment: Canc elled via OM: Order cancelled - Patient discharged Performed By: #### L 100.0100, L500.2500 ####[facility] [address] [place], [address] NEUT% Normal 47-70 [facility] Comment on above: Result Comment: Canc elled via OM: Order cancelled - Patient discharged Performed By: #### L 100.0100, L500.2500 ####[facility] [address] [place], [address] PLT Normal 150-450 [facility] Comment on above: Result Comment: Canc elled via OM: Order cancelled - Patient discharged Performed By: #### L 100.0100, L500.2500 ####[facility] [address] [place], [address] RBC Normal 4.2-5.4 [facility] Comment on above: Result Comment: Canc elled via OM: Order cancelled - Patient discharged Performed By: #### L 100.0100, L500.2500 ####[facility] [address] [place], [address] RDW CV Normal 11.6-14.6 [facility] Comment on above: Result Comment: Canc elled via OM: Order cancelled - Patient discharged Performed By: #### L 100.0100, L500.2500 ####[facility] [address] [place], [address] RDW SD Normal 35.1-43.9 [facility] Comment on above: Result Comment: Canc elled via OM: Order cancelled - Patient discharged Performed By: #### L 100.0100, L500.2500 ####[facility] [address] [place], [address] WBC Normal 4.4-11.0 [facility] Comment on above: Result Comment: Canc elled via OM: Order cancelled - Patient discharged Performed By: #### L 100.0100, L500.2500 ####[facility] [address] [place], [address] Absolute lymphocyte countOrd ered By: Adele Gusman on 03-23-2025 Lymphocytes Auto (Unsp spec) [#/Vol] 1.22 10*3/uL 0.83-4.51 [facility] Absolute neutrophil countOrd ered By: Adele Gusman on 03-23-2025 Neutrophils (Bld) [#/Vol] 6.8 10*3/uL 2.0-7.7 [facility] Anion gap in Serum or Plasma Ordered By: Adele Gusman on 03-23-2025 Anion gap [Moles/Vol] 10 mmol/L 5-15 [facility] Automated lymphocyte count a s percentage of total leukocytesOrdered By: Adele Gusman on 03-23-2025 Lymphocytes/100 WBC Auto (Unsp spec) 13.5 % Low 19-41 [facility] BUN/creatinine ratioOrdered By: Adele Gusman on 03-23-2025 Urea nitrogen/Creatinine [Mass ratio] 21.5 mg/mg High 10-20 [facility] Basophil percentageOrdered B y: Adele Gusman on 03-23-2025 Basophils/100 WBC (Bld) 0.4 % 0-[address] [facility] Bilirubin, totalOrdered By: Adele Gusman on 03-23-2025 Bilirubin [Mass/Vol] 1.28 mg/dL 0.00-1.30 [facility] Carbon dioxide, total [Moles /volume] in Central venous bloodOrdered By: Adele Gusman on 03-23-2025 CO2 [Moles/Vol] 24.4 mmol/L 21.0-32.0 [facility] Chloride assayOrdered By: Jennifer Gusman on 03-23-2025 Chloride [Moles/Vol] 104 mmol/L 98-108 [facility] Eosinophil percentageOrdered By: Adele Gusman 03-23-2025 Eosinophils/100 WBC (Bld) 1.9 % 0-5 [facility] Erythrocyte distribution wid th ratioOrdered By: elsa Gusman on 03-23-2025 Erythrocyte distribution width (RBC) [Ratio] 15.0 % High 11.6-14.6 [facility] Erythrocyte distribution wid th standard deviationOrdered By: macariocastletonmaxim Gusman on 03-23-2025 Erythrocyte distribution width (RBC) [Ratio] 50.8 fl High 35.1-43.9 [facility] Glomerular filtration rate ( GFR) estimation/1.73 sq m using serum, plasma, or whole bOrdered By: Adele Gusman on 03-23-2025 GFR/1.73 sq M.predicted among non-blacks MDRD (S/P/Bld) [Vol rate/Area] 75 mL/min/{1.73_m2} >60 [facility] Comment on above: mL/min/1.73m2 CKD-EP I Creatinine Equation (2020) Hematocrit Auto (Bld) [Volum e fraction]Ordered By: Adele Gusman on 03-23-2025 Hematocrit (Bld) [Volume fraction] 34.2 % Low 37-47 [facility] Hemoglobin measurementOrdere d By: Adele Gusman on 03-23-2025 Hemoglobin (Bld) [Mass/Vol] 11.6 g/dL Low 12.0-15.0 [facility] Immature granulocytes/100 WB C Auto (Bld)Ordered By: Adele Gusman on 03-23-2025 Immature granulocytes/100 WBC (Bld) 1.100 % High 0.0-0.9 [facility] Comment on above: IG% - Immature Granu locytes (promyelocytes, myelocytes and metamyelocytes) > 1% indicates that a LEFT SHIFT is Present. Laboratory - Chemistry and C hemistry - challengeOrdered By: Adele Gusman on 03-23-2025 AST [Catalytic activity/Vol] 16 U/L <32 [facility] MCV (mean corpuscular volume ) determinationOrdered By: elsa Gusman on 03-23-2025 MCV (RBC) [Entitic vol] 91.9 fL 81-[address] [facility] Mean corpuscular hemoglobin (MCH) determinationOrdered By: [facility] on 03-23-2025 MCH (RBC) [Entitic mass] 31.2 pg 27.0-32.0 [facility] Mean corpuscular hemoglobin concentration (MCHC) determinationOrdered By: [facility] Gusman on 03-23-2025 MCHC (RBC) [Mass/Vol] 33.9 g/dL 32-36 [facility] Mean platelet volume determi nationOrdered By: elsa Gusman on 03-23-2025 Platelet mean volume (Bld) [Entitic vol] 10.1 fL 6.2-12.0 [facility] Monocyte percentageOrdered B y: Adele Gusman on 03-23-2025 Monocytes/100 WBC (Bld) 7.8 % 0-[address] [facility] Neutrophil percentageOrdered By: macariocastletonmaxim Gusman on 03-23-2025 Neutrophils/100 WBC (Bld) 75.3 % High 47-70 [facility] Nucleated red blood cell per centageOrdered By: macariocastletonmaxim Gusman on 03-23-2025 Nucleated RBC/100 WBC (Bld) [Ratio] 0 % 0-5 [facility] Platelet countOrdered By: Jennifer Gusman on 03-23-2025 Platelets (Bld) [#/Vol] 241 10*3/uL 150-450 [facility] Potassium measurement (mass/ volume)Ordered By: Adele Gusman on 03-23-2025 Potassium (Unsp spec) [Mass/Vol] 3.5 mmol/L 3.3-5.1 [facility] RBC Auto (Bld) [#/Vol]Ordere d By: Adele Gusman on 03-23-2025 RBC (Bld) [#/Vol] 3.72 10*6/uL Low 4.2-5.4 [facility] Serum creatinine measurement (mass/volume)Ordered By: Adele Gusman on 03-23-2025 Creatinine [Mass/Vol] 0.78 mg/dL 0.70-1.20 [facility] Serum globulin measurementOr dered By: Adele Gusman on 03-23-2025 Globulin (S) [Mass/Vol] 2.3 g/dL 2.2-4.2 [facility] [facility] Serum glucose measurement (m ass/volume)Ordered By: Adele Gusman on 03-23-2025 Glucose [Mass/Vol] 95 mg/dL 70-99 [facility] Serum or plasma alanine tillman otransferase (ALT) measurementOrdered By: Adele Gusman on 03-23-2025 ALT [Catalytic activity/Vol] 6 U/L <35 [facility] Serum or plasma albumin thomas urement (mass/volume)Ordered By: Adele Gusman 03-23-2025 Albumin [Mass/Vol] 3.5 g/dL 3.4-4.8 [facility] Serum or plasma albumin/glob ulin mass ratioOrdered By: Adele Gusman on 03-23-2025 Albumin/Globulin [Mass ratio] 1.5 {ratio} 0.9-2.4 [facility] Serum or plasma alkaline mariah sphatase measurementOrdered By: Adele Gusman 03-23-2025 ALP [Catalytic activity/Vol] 135 U/L High 35-104 [facility] Serum or plasma calcium thomas urement (mass/volume)Ordered By: Adele Gusman 03-23-2025 Calcium [Mass/Vol] 9.0 mg/dL 7.6-11.0 [facility] Serum or plasma urea nitroge n measurement (mass/volume)Ordered By: Adele Aryayvon on 03-23-2025 Urea nitrogen [Mass/Vol] 17 mg/dL 4-19 [facility] Sodium levelOrdered By: Sharlene Gusman on 03-23-2025 Sodium [Moles/Vol] 139 mmol/L 133-145 [facility] Total proteinOrdered By: Amadou Gusman on 03-23-2025 Protein [Mass/Vol] 5.8 g/dL Low 5.9-8.4 [facility] White blood cell (WBC) count Ordered By: Adele Aryayvon on 03-23-2025 WBC (Bld) [#/Vol] 9.1 10*3/uL 4.4-11.0 [facility] Absolute lymphocyte countOrd ered By: Garfield Srinath on 03-19-2025 Lymphocytes Auto (Unsp spec) [#/Vol] 1.65 10*3/uL 0.83-4.51 [facility] Absolute neutrophil countOrd ered By: Garfield Srinath on 03-19-2025 Neutrophils (Bld) [#/Vol] 5.7 10*3/uL 2.0-7.7 [facility] Anion gap in Serum or Plasma Ordered By: Garfield Yo on 03-19-2025 Anion gap [Moles/Vol] 7 mmol/L 5-15 [facility] Automated lymphocyte count a s percentage of total leukocytesOrdered By: Garfield Yo on 03-19-2025 Lymphocytes/100 WBC Auto (Unsp spec) 19.7 % [facility] BUN/creatinine ratioOrdered By: Garfield Yo on 03-19-2025 Urea nitrogen/Creatinine [Mass ratio] 17.9 mg/mg - [facility] Basic Metabolic Profile (BMP )on 03-19-2025 BUN/CRE 17.9 RATIO Normal 09-07 [facility] Comment on above: Performed By: #### L 100.0100, L500.2500 ####[facility] [address] [place], [address] Calcium [Mass/Vol] 8.8 mg/dL Normal 7.6-11.0 [facility] Comment on above: Performed By: #### L 100.0100, L500.2500 ####[facility] [address] [place], [address] Chloride [Moles/Vol] 107 mmol/L Normal 98-108 [facility] Comment on above: Performed By: #### L 100.0100, L500.2500 ####[facility] [address] [place], [address] CO2 [Moles/Vol] 26.6 mmol/L Normal 21.0-32.0 [facility] Comment on above: Performed By: #### L 100.0100, L500.2500 ####[facility] [address] [place], [address] Creatinine [Mass/Vol] 1.02 mg/dL Normal 0.70-1.20 [facility] Comment on above: Performed By: #### L 100.0100, L500.2500 ####[facility] [address] [place], [address] ECRCL 32.95 ml/min Low 50-250 [facility] Comment on above: Performed By: #### L 100.0100, L500.2500 ####[facility] [address] [place], [address] GAP 7 Normal 5-15 [facility] Comment on above: Performed By: #### L 100.0100, L500.2500 ####[facility] [address] [place], [address] GFR/1.73 sq M.predicted among non-blacks MDRD (S/P/Bld) [Vol rate/Area] 54 mL/min/{1.73_m2} Low >60 [facility] Comment on above: Result Comment: mL/m in/1.73m2 CKD-EPI Creatinine Equation (2020) Performed By: #### L 100.0100, L500.2500 ####[facility] [address] [place], [address] Glucose [Mass/Vol] 92 mg/dL Normal 70-99 [facility] Comment on above: Performed By: #### L 100.0100, L500.2500 ####[facility] [address] [place], [address] Potassium [Moles/Vol] 4.1 mmol/L Normal 3.3-5.1 [facility] Comment on above: Result Comment: Hemo lysis present, Results??could be affected.?? Performed By: #### L 100.0100, L500.2500 ####[facility] [address] [place], [address] Sodium [Moles/Vol] 141 mmol/L Normal 133-145 [facility] Comment on above: Performed By: #### L 100.0100, L500.2500 ####[facility] [address] [place], [address] Urea nitrogen [Mass/Vol] 18 mg/dL Normal 4-19 [facility] Comment on above: Performed By: #### L 100.0100, L500.2500 ####[facility] [address] [place], [address] Basophil percentageOrdered B y: Garfield Yo on 03-19-2025 Basophils/100 WBC (Bld) 0.6 % 0-[address] [facility] CBC W/Diff, Automatedon 050 Absolute Lymph 1.65 X10 3/uL Normal 0.83-4.51 [facility] Comment on above: Performed By: #### L 100.0100, L500.2500 ####[facility] [address] [place], [address] Absolute Neut 5.7 X10 3/uL Normal 2.0-7.7 [facility] Comment on above: Performed By: #### L 100.0100, L500.2500 ####[facility] [address] [place], [address] Basophils/100 WBC (Bld) 0.6 % Normal 0-[address] [facility] Comment on above: Performed By: #### L 100.0100, L500.2500 ####[facility] [address] [place], [address] Eosinophils/100 WBC (Bld) 2.1 % Normal 0-5 [facility] Comment on above: Performed By: #### L 100.0100, L500.2500 ####[facility] [address] [place], [address] Erythrocyte distribution width (RBC) [Ratio] 15.7 % High 11.6-14.6 [facility] Comment on above: Performed By: #### L 100.0100, L500.2500 ####[facility] [address] [place], [address] Hematocrit (Bld) [Volume fraction] 30.9 % Low 37-47 [facility] Comment on above: Performed By: #### L 100.0100, L500.2500 ####[facility] [address] [place], [address] Hemoglobin (Bld) [Mass/Vol] 10.4 g/dL Low 12.0-15.0 [facility] Comment on above: Performed By: #### L 100.0100, L500.2500 ####[facility] [address] [place], [address] IG% 1.600 High 0.0-0.9 [facility] Comment on above: Result Comment: IG% - Immature Granulocytes (promyelocytes, myelocytes andmetamyelocytes) > 1% indicates that a LEFT SHIFT is Present. Performed By: #### L 100.0100, L500.2500 ####[facility] [address] [place], [address] Lymphocytes/100 WBC (Bld) 19.7 % Normal 19-41 [facility] Comment on above: Performed By: #### L 100.0100, L500.2500 ####[facility] [address] [place], [address] MCH (RBC) [Entitic mass] 31.3 pg Normal 27.0-32.0 [facility] Comment on above: Performed By: #### L 100.0100, L500.2500 ####[facility] [address] [place], [address] MCHC (RBC) [Mass/Vol] 33.7 g/dL Normal 32-36 [facility] Comment on above: Performed By: #### L 100.0100, L500.2500 ####[facility] [address] [place], [address] MCV (RBC) [Entitic vol] 93.1 fL Normal 81-99 [facility] Comment on above: Performed By: #### L 100.0100, L500.2500 ####[facility] [address] [place], [address] Monocytes/100 WBC (Bld) 8.5 % Normal 0-[address] [facility] Comment on above: Performed By: #### L 100.0100, L500.2500 ####[facility] [address] [place], [address] Neutrophils/100 WBC (Bld) 67.5 % Normal 47-70 [facility] Comment on above: Performed By: #### L 100.0100, L500.2500 ####[facility] [address] [place], [address] Nucleated RBC (Bld) [#/Vol] 0 10*3/uL Normal 0-5 [facility] Comment on above: Performed By: #### L 100.0100, L500.2500 ####[facility] [address] [place], [address] Platelet mean volume (Bld) [Entitic vol] 9.1 fL Normal 6.2-12.0 [facility] Comment on above: Performed By: #### L 100.0100, L500.2500 ####[facility] [address] [place], [address] Platelets (Bld) [#/Vol] 262 10*3/uL Normal 150-450 [facility] Comment on above: Performed By: #### L 100.0100, L500.2500 ####[facility] [address] [place], [address] RBC (Bld) [#/Vol] 3.32 10*6/uL Low 4.2-5.4 [facility] Comment on above: Performed By: #### L 100.0100, L500.2500 ####[facility] [address] [place], [address] RDW SD 53.2 fl High 35.1-43.9 [facility] Comment on above: Performed By: #### L 100.0100, L500.2500 ####[facility] [address] [place], [address] WBC (Bld) [#/Vol] 8.4 10*3/uL Normal 4.4-11.0 [facility] Comment on above: Performed By: #### L 100.0100, L500.2500 ####[facility] [address] [place], [address] CNPMarilu 03-19-2025 [facility] (ZOEYDeena) MICHALEA BRANDT ([id number]) 1940 F Date Time Provider Department 03/19/25 KENTRELL MONTGOMERY During your visit today, we recorded the following information about you: Kentrell Montgomery, HAND SIZER 03/19/2025 3:34 PM Signed Janna spoke with patient daughter Maribeth. Maribeth notes that patient is currently at [facility] right now. Transitioned there today. Maribeth notes that she needs to cancel patient appt with Dr. Santiago tomorrow. Janna notes that she will send message to Dr. Santiago regarding this need. Maribeth also noted that she is going to send My Chart message as well in regards to cancelling appt. Maribeth notes that the hospital had encouraged patient to go to [facility] for further care after being in [facility]. Daughter is trying to get with admissions at [facility] in regards to them saying that she is going there for 30 days and being placed in LTC and not Rehab. Daughter also notes that she has an appt next week with [employer] for financial planning. Maribeth also noted that she would like patient to see Dr. Santiago if and when she leaves [place]. While in [place], patient will be followed by their provider. Janna did encourage patient daughter to also reach out to Lala Huntley and [facility] for further support guidance regarding LTC planning. Janna will forward note to Dr. Santiago and her office in regards to appt cancellation need for tomorrow. Mckenzie Lombardo LPN 03/19/2025 4:00 PM Signed Canceled appointment for tomorrow per patients daughter request. Mckenzie Lombardo LPN March 19, 2025 4:00 PM Dillan Santiago MD 03/19/2025 4:55 PM Signed Thanks and noted Regards, Kentrell Herrera MD, HAND SIZER 03/20/2025 3:12 PM Signed Maribeth reached out to in regards to question about patient seeing [facility] provider and liking to keep Dr. Santiago. Maribeth notes that she feels like patient plan at this time will be to stay at [facility] for 30 days. Maribeth and this Sw discussed speaking with [facility] admissions and Sw in regards to consent to sign for them to share info with Dr. Santiago. Maribeth notes that she is going to try and speak with admissions today as she wants to see what happened with patient transitioning to rehab services instead of LTC. Maribeth notes that she still has appt next week with [facility] as well. Maribeth notes that she is also going to check with SW at [facility] in regards to counselor option for patient. This Sw is not aware of counseling service that provides mental health services at [place]. Daughter notes that she will ask about mental health treatment options there at [place]. Daughter is concerned about patient being depressed [...] Encounter Status:Closed by GABI MCELROY on 03/19/25 Normal [facility] Carbon dioxide, total [Moles /volume] in Central venous bloodOrdered By: Garfield Yo on 03-19-2025 CO2 [Moles/Vol] 26.6 mmol/L 21.0-32.0 [facility] Chloride assayOrdered By: Kristopher Yo on 03-19-2025 Chloride [Moles/Vol] 107 mmol/L 98-108 [facility] Eosinophil percentageOrdered By: Garfield Yo on 03-19-2025 Eosinophils/100 WBC (Bld) 2.1 % 0-5 [facility] Erythrocyte distribution wid th ratioOrdered By: Garfield Yo on 03-19-2025 Erythrocyte distribution width (RBC) [Ratio] 15.7 % High 11.6-14.6 [facility] Erythrocyte distribution wid th standard deviationOrdered By: Garfield Yo on 03-19-2025 Erythrocyte distribution width (RBC) [Ratio] 53.2 fl High 35.1-43.9 [facility] Glomerular filtration rate ( GFR) estimation/1.73 sq m using serum, plasma, or whole bOrdered By: Garfield Yo on 03-19-2025 GFR/1.73 sq M.predicted among non-blacks MDRD (S/P/Bld) [Vol rate/Area] 54 mL/min/{1.73_m2} Low >60 [facility] Comment on above: mL/min/1.73m2 CKD-EP I Creatinine Equation (2020) Hematocrit Auto (Bld) [Volum e fraction]Ordered By: Garfield Yo on 03-19-2025 Hematocrit (Bld) [Volume fraction] 30.9 % Low 37-47 [facility] Hemoglobin measurementOrdere d By: Garfield Yo on 03-19-2025 Hemoglobin (Bld) [Mass/Vol] 10.4 g/dL Low 12.0-15.0 [facility] Immature granulocytes/100 WB C Auto (Bld)Ordered By: Garfield Yo on 03-19-2025 Immature granulocytes/100 WBC (Bld) 1.600 % High 0.0-0.9 [facility] Comment on above: IG% - Immature Granu locytes (promyelocytes, myelocytes and metamyelocytes) > 1% indicates that a LEFT SHIFT is Present. MCV (mean corpuscular volume ) determinationOrdered By: Garfield Yo on 03-19-2025 MCV (RBC) [Entitic vol] 93.1 fL 81-99 [facility] Mean corpuscular hemoglobin (MCH) determinationOrdered By: Garfield Yo on 03-19-2025 MCH (RBC) [Entitic mass] 31.3 pg 27.0-32.0 [facility] Mean corpuscular hemoglobin concentration (MCHC) determinationOrdered By: Garfield Yo on 03-19-2025 MCHC (RBC) [Mass/Vol] 33.7 g/dL 32-36 [facility] Mean platelet volume determi nationOrdered By: Garfield Yo on 03-19-2025 Platelet mean volume (Bld) [Entitic vol] 9.1 fL 6.2-12.0 [facility] Monocyte percentageOrdered B y: Garfield Yo on 03-19-2025 Monocytes/100 WBC (Bld) 8.5 % 0-[address] [facility] Neutrophil percentageOrdered By: Garfield Yo on 03-19-2025 Neutrophils/100 WBC (Bld) 67.5 % 47-70 [facility] Nucleated red blood cell per centageOrdered By: Garfield Yo on 03-19-2025 Nucleated RBC/100 WBC (Bld) [Ratio] 0 % 0-5 [facility] Platelet countOrdered By: Kristopher Yo on 03-19-2025 Platelets (Bld) [#/Vol] 262 10*3/uL 150-450 [facility] Potassium measurement (mass/ volume)Ordered By: Garfield Yo on 03-19-2025 Potassium (Unsp spec) [Mass/Vol] 4.1 mmol/L 3.3-5.1 [facility] Comment on above: Hemolysis present, R esults could be affected. RBC Auto (Bld) [#/Vol]Ordere d By: Garfield Yo on 03-19-2025 RBC (Bld) [#/Vol] 3.32 10*6/uL Low 4.2-5.4 [facility] Serum creatinine measurement (mass/volume)Ordered By: Garfield Yo on 03-19-2025 Creatinine [Mass/Vol] 1.02 mg/dL 0.70-1.20 [facility] Serum glucose measurement (m ass/volume)Ordered By: Garfield Yo on 03-19-2025 Glucose [Mass/Vol] 92 mg/dL 70-99 [facility] Serum or plasma calcium thomas urement (mass/volume)Ordered By: Garfield Yo on 03-19-2025 Calcium [Mass/Vol] 8.8 mg/dL 7.6-11.0 [facility] Serum or plasma urea nitroge n measurement (mass/volume)Ordered By: Garfield Yo on 03-19-2025 Urea nitrogen [Mass/Vol] 18 mg/dL 4-19 [facility] Sodium levelOrdered By: Garfield Yo on 03-19-2025 Sodium [Moles/Vol] 141 mmol/L 133-145 [facility] White blood cell (WBC) count Ordered By: Garfield Yo on 03-19-2025 WBC (Bld) [#/Vol] 8.4 10*3/uL 4.4-11.0 [facility] Basic Metabolic Profile (BMP )on 03-12-2025 BUN/CRE 19.2 RATIO Normal 10-20 [facility] Comment on above: Performed By: #### L 100.0100, L500.2500 ####[facility] [address] [place], [address] Calcium [Mass/Vol] 8.6 mg/dL Normal 7.6-11.0 [facility] Comment on above: Performed By: #### L 100.0100, L500.2500 ####[facility] [address] [place], [address] Chloride [Moles/Vol] 105 mmol/L Normal 98-108 [facility] Comment on above: Performed By: #### L 100.0100, L500.2500 ####[facility] [address] [place], [address] CO2 [Moles/Vol] 26.6 mmol/L Normal 21.0-32.0 [facility] Comment on above: Performed By: #### L 100.0100, L500.2500 ####[facility] [address] [place], [address] Creatinine [Mass/Vol] 0.80 mg/dL Normal 0.70-1.20 [facility] Comment on above: Performed By: #### L 100.0100, L500.2500 ####[facility] [address] [place], [address] ECRCL 42.05 ml/min Low 50-250 [facility] Comment on above: Performed By: #### L 100.0100, L500.2500 ####[facility] [address] [place], [address] GAP 9 Normal 5-15 [facility] Comment on above: Performed By: #### L 100.0100, L500.2500 ####[facility] [address] [place], [address] GFR/1.73 sq M.predicted among non-blacks MDRD (S/P/Bld) [Vol rate/Area] 73 mL/min/{1.73_m2} Normal >60 [facility] Comment on above: Result Comment: mL/m in/1.73m2 CKD-EPI Creatinine Equation (2020) Performed By: #### L 100.0100, L500.2500 ####[facility] [address] [place], [address] Glucose [Mass/Vol] 90 mg/dL Normal 70-99 [facility] Comment on above: Performed By: #### L 100.0100, L500.2500 ####[facility] [address] [place], [address] Potassium [Moles/Vol] 3.9 mmol/L Normal 3.3-5.1 [facility] Comment on above: Result Comment: Hemo lysis present, Results??could be affected.?? Performed By: #### L 100.0100, L500.2500 ####[facility] [address] [place], [address] Sodium [Moles/Vol] 140 mmol/L Normal 133-145 [facility] Comment on above: Performed By: #### L 100.0100, L500.2500 ####[facility] [address] [place], [address] Urea nitrogen [Mass/Vol] 15 mg/dL Normal 4-19 [facility] Comment on above: Performed By: #### L 100.0100, L500.2500 ####[facility] [address] [place], [address] CBC W/Diff, Automatedon -12 23-2024 Absolute Lymph 1.55 X10 3/uL Normal 0.83-4.51 [facility] Comment on above: Performed By: #### L 100.0100, L500.2500 ####[facility] [address] [place], [address] Absolute Neut 7.8 X10 3/uL High 2.0-7.7 [facility] Comment on above: Performed By: #### L 100.0100, L500.2500 ####[facility] [address] [place], [address] Basophils/100 WBC (Bld) 0.9 % Normal 0-[address] [facility] Comment on above: Performed By: #### L 100.0100, L500.2500 ####[facility] [address] [place], [address] Eosinophils/100 WBC (Bld) 2.5 % Normal 0-5 [facility] Comment on above: Performed By: #### L 100.0100, L500.2500 ####[facility] [address] [place], [address] Erythrocyte distribution width (RBC) [Ratio] 16.0 % High 11.6-14.6 [facility] Comment on above: Performed By: #### L 100.0100, L500.2500 ####[facility] [address] [place], [address] Hematocrit (Bld) [Volume fraction] 28.8 % Low 37-47 [facility] Comment on above: Performed By: #### L 100.0100, L500.2500 ####[facility] [address] [place], [address] Hemoglobin (Bld) [Mass/Vol] 9.5 g/dL Low 12.0-15.0 [facility] Comment on above: Performed By: #### L 100.0100, L500.2500 ####[facility] [address] [place], [address] IG% 2.000 High 0.0-0.9 [facility] Comment on above: Result Comment: IG% - Immature Granulocytes (promyelocytes, myelocytes andmetamyelocytes) > 1% indicates that a LEFT SHIFT is Present. Performed By: #### L 100.0100, L500.2500 ####[facility] [address] [place], [address] Lymphocytes/100 WBC (Bld) 14.7 % Low 19-41 [facility] Comment on above: Performed By: #### L 100.0100, L500.2500 ####[facility] [address] [place], [address] MCH (RBC) [Entitic mass] 30.7 pg Normal 27.0-32.0 [facility] Comment on above: Performed By: #### L 100.0100, L500.2500 ####[facility] [address] [place], [address] MCHC (RBC) [Mass/Vol] 33.0 g/dL Normal 32-36 [facility] Comment on above: Performed By: #### L 100.0100, L500.2500 ####[facility] [address] [place], [address] MCV (RBC) [Entitic vol] 93.2 fL Normal 81-[address] [facility] Comment on above: Performed By: #### L 100.0100, L500.2500 ####[facility] [address] [place], [address] Monocytes/100 WBC (Bld) 5.9 % Normal 0-10 [facility] Comment on above: Performed By: #### L 100.0100, L500.2500 ####[facility] [address] [place], [address] Neutrophils/100 WBC (Bld) 74.0 % High 47-70 [facility] Comment on above: Performed By: #### L 100.0100, L500.2500 ####[facility] [address] [place], [address] Nucleated RBC (Bld) [#/Vol] 0 10*3/uL Normal 0-5 [facility] Comment on above: Performed By: #### L 100.0100, L500.2500 ####[facility] [address] [place], [address] Platelet mean volume (Bld) [Entitic vol] 9.4 fL Normal 6.2-12.0 [facility] Comment on above: Performed By: #### L 100.0100, L500.2500 ####[facility] [address] [place], [address] Platelets (Bld) [#/Vol] 312 10*3/uL Normal 150-450 [facility] Comment on above: Performed By: #### L 100.0100, L500.2500 ####[facility] [address] [place], [address] RBC (Bld) [#/Vol] 3.09 10*6/uL Low 4.2-5.4 [facility] Comment on above: Performed By: #### L 100.0100, L500.2500 ####[facility] [address] [place], [address] RDW SD 52.6 fl High 35.1-43.9 [facility] Comment on above: Performed By: #### L 100.0100, L500.2500 ####[facility] [address] [place], [address] WBC (Bld) [#/Vol] 10.6 10*3/uL Normal 4.4-11.0 [facility] Comment on above: Performed By: #### L 100.0100, L500.2500 ####[facility] [address] [place], [address] Chest PA and Lateralon 03-11 Chest PA and Lateral Normal [facility] Basic Metabolic Profile (BMP )on 03-10-2025 BUN Normal 4-19 [facility] Comment on above: Result Comment: Canc elled via OM: Order cancelled - Patient discharged Performed By: #### L 500.2500, L100.0100 ####[facility] [address] [place], [address] BUN/CRE Normal 10-20 [facility] Comment on above: Result Comment: Canc elled via OM: Order cancelled - Patient discharged Performed By: #### L 500.2500, L100.0100 ####[facility] [address] [place], [address] Calcium Normal 7.6-11.0 [facility] Comment on above: Result Comment: Canc elled via OM: Order cancelled - Patient discharged Performed By: #### L 500.2500, L100.0100 ####[facility] [address] [place], [address] CL Normal 98-108 [facility] Comment on above: Result Comment: Canc elled via OM: Order cancelled - Patient discharged Performed By: #### L 500.2500, L100.0100 ####[facility] [address] [place], [address] CO2 Normal 21.0-32.0 [facility] Comment on above: Result Comment: Canc elled via OM: Order cancelled - Patient discharged Performed By: #### L 500.2500, L100.0100 ####[facility] [address] [place], [address] CREAT,SERUM Normal 0.70-1.20 [facility] Comment on above: Result Comment: Canc elled via OM: Order cancelled - Patient discharged Performed By: #### L 500.2500, L100.0100 ####[facility] [address] [place], [address] eGFR Normal >60 [facility] Comment on above: Result Comment: Canc elled via OM: Order cancelled - Patient discharged Performed By: #### L 500.2500, L100.0100 ####[facility] [address] [place], [address] GAP Normal 5-15 [facility] Comment on above: Result Comment: Canc elled via OM: Order cancelled - Patient discharged Performed By: #### L 500.2500, L100.0100 ####[facility] [address] [place], [address] GLU Normal 70-99 [facility] Comment on above: Result Comment: Canc elled via OM: Order cancelled - Patient discharged Performed By: #### L 500.2500, L100.0100 ####[facility] [address] [place], [address] Potassium Normal 3.3-5.1 [facility] Comment on above: Result Comment: Canc elled via OM: Order cancelled - Patient discharged Performed By: #### L 500.2500, L100.0100 ####[facility] [address] [place], [address] Basic Metabolic Profile (BMP) Normal 133-145 [facility] Comment on above: Result Comment: Canc elled via OM: Order cancelled - Patient discharged Performed By: #### L 500.2500, L100.0100 ####[facility] [address] [place], [address] CBC W/Diff, Automatedon 04-2 Absolute Neut Normal 2.0-7.7 [facility] Comment on above: Result Comment: Canc elled via OM: Order cancelled - Patient discharged Performed By: #### L 500.2500, L100.0100 ####[facility] [address] [place], [address] HCT Normal 37-47 [facility] Comment on above: Result Comment: Canc elled via OM: Order cancelled - Patient discharged Performed By: #### L 500.2500, L100.0100 ####[facility] [address] [place], [address] HGB Normal 12.0-15.0 [facility] Comment on above: Result Comment: Canc elled via OM: Order cancelled - Patient discharged Performed By: #### L 500.2500, L100.0100 ####[facility] [address] [place], [address] MCH Normal 27.0-32.0 [facility] Comment on above: Result Comment: Canc elled via OM: Order cancelled - Patient discharged Performed By: #### L 500.2500, L100.0100 ####[facility] [address] [place], [address] MCHC Normal 32-36 [facility] Comment on above: Result Comment: Canc elled via OM: Order cancelled - Patient discharged Performed By: #### L 500.2500, L100.0100 ####[facility] [address] [place], [address] MCV Normal 81-99 [facility] Comment on above: Result Comment: Canc elled via OM: Order cancelled - Patient discharged Performed By: #### L 500.2500, L100.0100 ####[facility] [address] [place], [address] NEUT% Normal 47-70 [facility] Comment on above: Result Comment: Canc elled via OM: Order cancelled - Patient discharged Performed By: #### L 500.2500, L100.0100 ####[facility] [address] [place], [address] PLT Normal 150-450 [facility] Comment on above: Result Comment: Canc elled via OM: Order cancelled - Patient discharged Performed By: #### L 500.2500, L100.0100 ####[facility] [address] [place], [address] RBC Normal 4.2-5.4 [facility] Comment on above: Result Comment: Canc elled via OM: Order cancelled - Patient discharged Performed By: #### L 500.2500, L100.0100 ####[facility] [address] [place], [address] RDW CV Normal 11.6-14.6 [facility] Comment on above: Result Comment: Canc elled via OM: Order cancelled - Patient discharged Performed By: #### L 500.2500, L100.0100 ####[facility] [address] [place], [address] RDW SD Normal 35.1-43.9 [facility] Comment on above: Result Comment: Canc elled via OM: Order cancelled - Patient discharged Performed By: #### L 500.2500, L100.0100 ####[facility] [address] [place], [address] WBC Normal 4.4-11.0 [facility] Comment on above: Result Comment: Canc elled via OM: Order cancelled - Patient discharged Performed By: #### L 500.2500, L100.0100 ####[facility] [address] [place], [address] Basic Metabolic Profile (BMP )on 03-09-2025 BUN Normal 4-19 [facility] Comment on above: Result Comment: Canc elled via OM: Order cancelled - Patient discharged Performed By: #### L 500.2500, L100.0100 ####[facility] [address] [place], [address] BUN/CRE Normal 10-20 [facility] Comment on above: Result Comment: Canc elled via OM: Order cancelled - Patient discharged Performed By: #### L 500.2500, L100.0100 ####[facility] [address] [place], [address] Calcium Normal 7.6-11.0 [facility] Comment on above: Result Comment: Canc elled via OM: Order cancelled - Patient discharged Performed By: #### L 500.2500, L100.0100 ####[facility] [address] [place], [address] CL Normal 98-108 [facility] Comment on above: Result Comment: Canc elled via OM: Order cancelled - Patient discharged Performed By: #### L 500.2500, L100.0100 ####[facility] [address] [place], [address] CO2 Normal 21.0-32.0 [facility] Comment on above: Result Comment: Canc elled via OM: Order cancelled - Patient discharged Performed By: #### L 500.2500, L100.0100 ####[facility] [address] [place], [address] CREAT,SERUM Normal 0.70-1.20 [facility] Comment on above: Result Comment: Canc elled via OM: Order cancelled - Patient discharged Performed By: #### L 500.2500, L100.0100 ####[facility] [address] [place], [address] eGFR Normal >60 [facility] Comment on above: Result Comment: Canc elled via OM: Order cancelled - Patient discharged Performed By: #### L 500.2500, L100.0100 ####[facility] [address] [place], [address] GAP Normal 5-15 [facility] Comment on above: Result Comment: Canc elled via OM: Order cancelled - Patient discharged Performed By: #### L 500.2500, L100.0100 ####[facility] [address] [place], [address] GLU Normal 70-99 [facility] Comment on above: Result Comment: Canc elled via OM: Order cancelled - Patient discharged Performed By: #### L 500.2500, L100.0100 ####[facility] [address] [place], [address] Potassium Normal 3.3-5.1 [facility] Comment on above: Result Comment: Canc elled via OM: Order cancelled - Patient discharged Performed By: #### L 500.2500, L100.0100 ####[facility] [address] [place], [address] Basic Metabolic Profile (BMP) Normal 133-145 [facility] Comment on above: Result Comment: Canc elled via OM: Order cancelled - Patient discharged Performed By: #### L 500.2500, L100.0100 ####[facility] [address] [place], [address] CBC W/Diff, Automatedon 04-2 Absolute Neut Normal 2.0-7.7 [facility] Comment on above: Result Comment: Canc elled via OM: Order cancelled - Patient discharged Performed By: #### L 500.2500, L100.0100 ####[facility] [address] [place], [address] HCT Normal 37-47 [facility] Comment on above: Result Comment: Canc elled via OM: Order cancelled - Patient discharged Performed By: #### L 500.2500, L100.0100 ####[facility] [address] [place], [address] HGB Normal 12.0-15.0 [facility] Comment on above: Result Comment: Canc elled via OM: Order cancelled - Patient discharged Performed By: #### L 500.2500, L100.0100 ####[facility] [address] [place], [address] MCH Normal 27.0-32.0 [facility] Comment on above: Result Comment: Canc elled via OM: Order cancelled - Patient discharged Performed By: #### L 500.2500, L100.0100 ####[facility] [address] [place], [address] MCHC Normal 32-36 [facility] Comment on above: Result Comment: Canc elled via OM: Order cancelled - Patient discharged Performed By: #### L 500.2500, L100.0100 ####[facility] [address] [place], [address] MCV Normal 81-99 [facility] Comment on above: Result Comment: Canc elled via OM: Order cancelled - Patient discharged Performed By: #### L 500.2500, L100.0100 ####[facility] [address] [place], [address] NEUT% Normal 47-70 [facility] Comment on above: Result Comment: Canc elled via OM: Order cancelled - Patient discharged Performed By: #### L 500.2500, L100.0100 ####[facility] [address] [place], [address] PLT Normal 150-450 [facility] Comment on above: Result Comment: Canc elled via OM: Order cancelled - Patient discharged Performed By: #### L 500.2500, L100.0100 ####[facility] [address] [place], [address] RBC Normal 4.2-5.4 [facility] Comment on above: Result Comment: Canc elled via OM: Order cancelled - Patient discharged Performed By: #### L 500.2500, L100.0100 ####[facility] [address] [place], [address] RDW CV Normal 11.6-14.6 [facility] Comment on above: Result Comment: Canc elled via OM: Order cancelled - Patient discharged Performed By: #### L 500.2500, L100.0100 ####[facility] [address] [place], [address] RDW SD Normal 35.1-43.9 [facility] Comment on above: Result Comment: Canc elled via OM: Order cancelled - Patient discharged Performed By: #### L 500.2500, L100.0100 ####[facility] [address] [place], [address] WBC Normal 4.4-11.0 [facility] Comment on above: Result Comment: Canc elled via OM: Order cancelled - Patient discharged Performed By: #### L 500.2500, L100.0100 ####[facility] [address] [place], [address] Venous Duplex US, Unilateral on 03-09-2025 Venous Duplex US, Unilateral Normal [facility] Venous duplex ultrasound rep ortOrdered By: Vadim Estrada on 03-09-2025 US Vein [facility] [address] 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, [address] BUN/CRE Normal 10-20 [facility] Comment on above: Result Comment: Canc elled via OM: Order cancelled - Patient discharged Performed By: #### L 100.0100, L500.2500 ####[facility] [address] [place], [address] Calcium Normal 7.6-11.0 [facility] Comment on above: Result Comment: Canc elled via OM: Order cancelled - Patient discharged Performed By: #### L 100.0100, L500.2500 ####[facility] [address] [place], [address] CL Normal 98-108 [facility] Comment on above: Result Comment: Canc elled via OM: Order cancelled - Patient discharged Performed By: #### L 100.0100, L500.2500 ####[facility] [address] [place], [address] CO2 Normal 21.0-32.0 [facility] Comment on above: Result Comment: Canc elled via OM: Order cancelled - Patient discharged Performed By: #### L 100.0100, L500.2500 ####[facility] [address] [place], [address] CREAT,SERUM Normal 0.70-1.20 [facility] Comment on above: Result Comment: Canc elled via OM: Order cancelled - Patient discharged Performed By: #### L 100.0100, L500.2500 ####[facility] [address] [place], [address] eGFR Normal >60 [facility] Comment on above: Result Comment: Canc elled via OM: Order cancelled - Patient discharged Performed By: #### L 100.0100, L500.2500 ####[facility] [address] [place], [address] GAP Normal 5-15 [facility] Comment on above: Result Comment: Canc elled via OM: Order cancelled - Patient discharged Performed By: #### L 100.0100, L500.2500 ####[facility] [address] [place], [address] GLU Normal 70-99 [facility] Comment on above: Result Comment: Canc elled via OM: Order cancelled - Patient discharged Performed By: #### L 100.0100, L500.2500 ####[facility] [address] [place], [address] Potassium Normal 3.3-5.1 [facility] Comment on above: Result Comment: Canc elled via OM: Order cancelled - Patient discharged Performed By: #### L 100.0100, L500.2500 ####[facility] [address] [place], [address] Basic Metabolic Profile (BMP) Normal 133-145 [facility] Comment on above: Result Comment: Canc elled via OM: Order cancelled - Patient discharged Performed By: #### L 100.0100, L500.2500 ####[facility] [address] [place], [address] CBC W/Diff, Automatedon 04-2 0-2024 Absolute Neut Normal 2.0-7.7 [facility] Comment on above: Result Comment: Canc elled via OM: Order cancelled - Patient discharged Performed By: #### L 100.0100, L500.2500 ####[facility] [address] [place], [address] HCT Normal 37-47 [facility] Comment on above: Result Comment: Canc elled via OM: Order cancelled - Patient discharged Performed By: #### L 100.0100, L500.2500 ####[facility] [address] [place], [address] HGB Normal 12.0-15.0 [facility] Comment on above: Result Comment: Canc elled via OM: Order cancelled - Patient discharged Performed By: #### L 100.0100, L500.2500 ####[facility] [address] [place], [address] MCH Normal 27.0-32.0 [facility] Comment on above: Result Comment: Canc elled via OM: Order cancelled - Patient discharged Performed By: #### L 100.0100, L500.2500 ####[facility] [address] [place], [address] MCHC Normal 32-36 [facility] Comment on above: Result Comment: Canc elled via OM: Order cancelled - Patient discharged Performed By: #### L 100.0100, L500.2500 ####[facility] [address] [place], [address] MCV Normal 81-99 [facility] Comment on above: Result Comment: Canc elled via OM: Order cancelled - Patient discharged Performed By: #### L 100.0100, L500.2500 ####[facility] [address] [place], [address] NEUT% Normal 47-70 [facility] Comment on above: Result Comment: Canc elled via OM: Order cancelled - Patient discharged Performed By: #### L 100.0100, L500.2500 ####[facility] [address] [place], [address] PLT Normal 150-450 [facility] Comment on above: Result Comment: Canc elled via OM: Order cancelled - Patient discharged Performed By: #### L 100.0100, L500.2500 ####[facility] [address] [place], [address] RBC Normal 4.2-5.4 [facility] Comment on above: Result Comment: Canc elled via OM: Order cancelled - Patient discharged Performed By: #### L 100.0100, L500.2500 ####[facility] [address] [place], [address] RDW CV Normal 11.6-14.6 [facility] Comment on above: Result Comment: Canc elled via OM: Order cancelled - Patient discharged Performed By: #### L 100.0100, L500.2500 ####[facility] [address] [place], [address] RDW SD Normal 35.1-43.9 [facility] Comment on above: Result Comment: Canc elled via OM: Order cancelled - Patient discharged Performed By: #### L 100.0100, L500.2500 ####[facility] [address] [place], [address] WBC Normal 4.4-11.0 [facility] Comment on above: Result Comment: Canc elled via OM: Order cancelled - Patient discharged Performed By: #### L 100.0100, L500.2500 ####[facility] [address] [place], [address] Basic Metabolic Profile (BMP )on 03-07-2025 BUN Normal 4-19 [facility] Comment on above: Result Comment: Canc elled via OM: Order cancelled - Patient discharged Performed By: #### L 100.0100, L500.2500 ####[facility] [address] [place], [address] BUN/CRE Normal 10-20 [facility] Comment on above: Result Comment: Canc elled via OM: Order cancelled - Patient discharged Performed By: #### L 100.0100, L500.2500 ####[facility] [address] [place], [address] Calcium Normal 7.6-11.0 [facility] Comment on above: Result Comment: Canc elled via OM: Order cancelled - Patient discharged Performed By: #### L 100.0100, L500.2500 ####[facility] [address] [place], [address] CL Normal 98-108 [facility] Comment on above: Result Comment: Canc elled via OM: Order cancelled - Patient discharged Performed By: #### L 100.0100, L500.2500 ####[facility] [address] [place], [address] CO2 Normal 21.0-32.0 [facility] Comment on above: Result Comment: Canc elled via OM: Order cancelled - Patient discharged Performed By: #### L 100.0100, L500.2500 ####[facility] [address] [place], [address] CREAT,SERUM Normal 0.70-1.20 [facility] Comment on above: Result Comment: Canc elled via OM: Order cancelled - Patient discharged Performed By: #### L 100.0100, L500.2500 ####[facility] [address] [place], [address] eGFR Normal >60 [facility] Comment on above: Result Comment: Canc elled via OM: Order cancelled - Patient discharged Performed By: #### L 100.0100, L500.2500 ####[facility] [address] [place], [address] GAP Normal 5-15 [facility] Comment on above: Result Comment: Canc elled via OM: Order cancelled - Patient discharged Performed By: #### L 100.0100, L500.2500 ####[facility] [address] [place], [address] GLU Normal 70-99 [facility] Comment on above: Result Comment: Canc elled via OM: Order cancelled - Patient discharged Performed By: #### L 100.0100, L500.2500 ####[facility] [address] [place], [address] Potassium Normal 3.3-5.1 [facility] Comment on above: Result Comment: Canc elled via OM: Order cancelled - Patient discharged Performed By: #### L 100.0100, L500.2500 ####[facility] [address] [place], [address] Basic Metabolic Profile (BMP) Normal 133-145 [facility] Comment on above: Result Comment: Canc elled via OM: Order cancelled - Patient discharged Performed By: #### L 100.0100, L500.2500 ####[facility] [address] [place], [address] CBC W/Diff, Automatedon 04-1 Absolute Neut Normal 2.0-7.7 [facility] Comment on above: Result Comment: Canc elled via OM: Order cancelled - Patient discharged Performed By: #### L 100.0100, L500.2500 ####[facility] [address] [place], [address] HCT Normal 37-47 [facility] Comment on above: Result Comment: Canc elled via OM: Order cancelled - Patient discharged Performed By: #### L 100.0100, L500.2500 ####[facility] [address] [place], [address] HGB Normal 12.0-15.0 [facility] Comment on above: Result Comment: Canc elled via OM: Order cancelled - Patient discharged Performed By: #### L 100.0100, L500.2500 ####[facility] [address] [place], [address] MCH Normal 27.0-32.0 [facility] Comment on above: Result Comment: Canc elled via OM: Order cancelled - Patient discharged Performed By: #### L 100.0100, L500.2500 ####[facility] [address] [place], [address] MCHC Normal 32-36 [facility] Comment on above: Result Comment: Canc elled via OM: Order cancelled - Patient discharged Performed By: #### L 100.0100, L500.2500 ####[facility] [address] [place], [address] MCV Normal 81-99 [facility] Comment on above: Result Comment: Canc elled via OM: Order cancelled - Patient discharged Performed By: #### L 100.0100, L500.2500 ####[facility] [address] [place], [address] NEUT% Normal 47-70 [facility] Comment on above: Result Comment: Canc elled via OM: Order cancelled - Patient discharged Performed By: #### L 100.0100, L500.2500 ####[facility] [address] [place], [address] PLT Normal 150-450 [facility] Comment on above: Result Comment: Canc elled via OM: Order cancelled - Patient discharged Performed By: #### L 100.0100, L500.2500 ####[facility] [address] [place], [address] RBC Normal 4.2-5.4 [facility] Comment on above: Result Comment: Canc elled via OM: Order cancelled - Patient discharged Performed By: #### L 100.0100, L500.2500 ####[facility] [address] [place], [address] RDW CV Normal 11.6-14.6 [facility] Comment on above: Result Comment: Canc elled via OM: Order cancelled - Patient discharged Performed By: #### L 100.0100, L500.2500 ####[facility] [address] [place], [address] RDW SD Normal 35.1-43.9 [facility] Comment on above: Result Comment: Canc elled via OM: Order cancelled - Patient discharged Performed By: #### L 100.0100, L500.2500 ####[facility] [address] [place], [address] WBC Normal 4.4-11.0 [facility] Comment on above: Result Comment: Canc elled via OM: Order cancelled - Patient discharged Performed By: #### L 100.0100, L500.2500 ####[facility] [address] [place], [address] HH, Hemoglobin AND Hematocri ton 03-07-2025 Hematocrit (Bld) [Volume fraction] 26.2 % Low 37-47 [facility] Comment on above: Performed By: #### L 100.0600 ####[facility] [address] [place], [address] Hemoglobin (Bld) [Mass/Vol] 9.0 g/dL Low 12.0-15.0 [facility] Comment on above: Performed By: #### L 100.0600 ####[facility] [address] [place], [address] Hematocrit Auto (Bld) [Volum e fraction]Ordered By: Garfield Yo on 03-07-2025 Hematocrit (Bld) [Volume fraction] 26.2 % Low 37-47 [facility] Hemoglobin measurementOrdere d By: Garfield Yo on 03-07-2025 Hemoglobin (Bld) [Mass/Vol] 9.0 g/dL Low 12.0-15.0 [facility] Basic Metabolic Profile (BMP )on 03-06-2025 BUN Normal 4-19 [facility] Comment on above: Result Comment: Canc elled via OM: Order cancelled - Patient discharged Performed By: #### L 500.2500, L100.0100 ####[facility] [address] [place], [address] BUN/CRE Normal 10-20 [facility] Comment on above: Result Comment: Canc elled via OM: Order cancelled - Patient discharged Performed By: #### L 500.2500, L100.0100 ####[facility] [address] [place], [address] Calcium Normal 7.6-11.0 [facility] Comment on above: Result Comment: Canc elled via OM: Order cancelled - Patient discharged Performed By: #### L 500.2500, L100.0100 ####[facility] [address] [place], [address] CL Normal 98-108 [facility] Comment on above: Result Comment: Canc elled via OM: Order cancelled - Patient discharged Performed By: #### L 500.2500, L100.0100 ####[facility] [address] [place], [address] CO2 Normal 21.0-32.0 [facility] Comment on above: Result Comment: Canc elled via OM: Order cancelled - Patient discharged Performed By: #### L 500.2500, L100.0100 ####[facility] [address] [place], [address] CREAT,SERUM Normal 0.70-1.20 [facility] Comment on above: Result Comment: Canc elled via OM: Order cancelled - Patient discharged Performed By: #### L 500.2500, L100.0100 ####[facility] [address] [place], [address] eGFR Normal >60 [facility] Comment on above: Result Comment: Canc elled via OM: Order cancelled - Patient discharged Performed By: #### L 500.2500, L100.0100 ####[facility] [address] [place], [address] GAP Normal 5-15 [facility] Comment on above: Result Comment: Canc elled via OM: Order cancelled - Patient discharged Performed By: #### L 500.2500, L100.0100 ####[facility] [address] [place], [address] GLU Normal 70-99 [facility] Comment on above: Result Comment: Canc elled via OM: Order cancelled - Patient discharged Performed By: #### L 500.2500, L100.0100 ####[facility] [address] [place], [address] Potassium Normal 3.3-5.1 [facility] Comment on above: Result Comment: Canc elled via OM: Order cancelled - Patient discharged Performed By: #### L 500.2500, L100.0100 ####[facility] [address] [place], [address] Basic Metabolic Profile (BMP) Normal 133-145 [facility] Comment on above: Result Comment: Canc elled via OM: Order cancelled - Patient discharged Performed By: #### L 500.2500, L100.0100 ####[facility] [address] [place], [address] CBC W/Diff, Automatedon 04-1 8-2025 Absolute Neut Normal 2.0-7.7 [facility] Comment on above: Result Comment: Canc elled via OM: Order cancelled - Patient discharged Performed By: #### L 500.2500, L100.0100 ####[facility] [address] [place], [address] HCT Normal 37-47 [facility] Comment on above: Result Comment: Canc elled via OM: Order cancelled - Patient discharged Performed By: #### L 500.2500, L100.0100 ####[facility] [address] [place], [address] HGB Normal 12.0-15.0 [facility] Comment on above: Result Comment: Canc elled via OM: Order cancelled - Patient discharged Performed By: #### L 500.2500, L100.0100 ####[facility] [address] [place], [address] MCH Normal 27.0-32.0 [facility] Comment on above: Result Comment: Canc elled via OM: Order cancelled - Patient discharged Performed By: #### L 500.2500, L100.0100 ####[facility] [address] [place], [address] MCHC Normal 32-36 [facility] Comment on above: Result Comment: Canc elled via OM: Order cancelled - Patient discharged Performed By: #### L 500.2500, L100.0100 ####[facility] [address] [place], [address] MCV Normal 81-99 [facility] Comment on above: Result Comment: Canc elled via OM: Order cancelled - Patient discharged Performed By: #### L 500.2500, L100.0100 ####[facility] [address] [place], [address] NEUT% Normal 47-70 [facility] Comment on above: Result Comment: Canc elled via OM: Order cancelled - Patient discharged Performed By: #### L 500.2500, L100.0100 ####[facility] [address] [place], [address] PLT Normal 150-450 [facility] Comment on above: Result Comment: Canc elled via OM: Order cancelled - Patient discharged Performed By: #### L 500.2500, L100.0100 ####[facility] [address] [place], [address] RBC Normal 4.2-5.4 [facility] Comment on above: Result Comment: Canc elled via OM: Order cancelled - Patient discharged Performed By: #### L 500.2500, L100.0100 ####[facility] [address] [place], [address] RDW CV Normal 11.6-14.6 [facility] Comment on above: Result Comment: Canc elled via OM: Order cancelled - Patient discharged Performed By: #### L 500.2500, L100.0100 ####[facility] [address] [place], [address] RDW SD Normal 35.1-43.9 [facility] Comment on above: Result Comment: Canc elled via OM: Order cancelled - Patient discharged Performed By: #### L 500.2500, L100.0100 ####[facility] [address] [place], [address] WBC Normal 4.4-11.0 [facility] Comment on above: Result Comment: Canc elled via OM: Order cancelled - Patient discharged Performed By: #### L 500.2500, L100.0100 ####[facility] [address] [place], [address] Knee 1 or 2 Viewson 03-06-20 25 Knee 1 or 2 Views Normal [facility] Absolute neutrophil countOrd ered By: Garfield Yo on 03-05-2025 Neutrophils (Bld) [#/Vol] 7.3 10*3/uL 2.0-7.7 [facility] Anion gap in Serum or Plasma Ordered By: Garfield Yo on 03-05-2025 Anion gap [Moles/Vol] 10 mmol/L 04-02 [facility] BUN/creatinine ratioOrdered By: Garfield Yo on 03-05-2025 Urea nitrogen/Creatinine [Mass ratio] 17.0 mg/mg - [facility] Basic Metabolic Profile (BMP )on 03-05-2025 BUN/CRE 17.0 RATIO Normal - [facility] Comment on above: Performed By: #### L 100.0100, L500.2500 ####[facility] [address] [place], [address] Calcium [Mass/Vol] 8.5 mg/dL Normal 7.6-11.0 [facility] Comment on above: Performed By: #### L 100.0100, L500.2500 ####[facility] [address] [place], [address] Chloride [Moles/Vol] 102 mmol/L Normal 98-108 [facility] Comment on above: Performed By: #### L 100.0100, L500.2500 ####[facility] [address] [place], [address] CO2 [Moles/Vol] 27.5 mmol/L Normal 21.0-32.0 [facility] Comment on above: Performed By: #### L 100.0100, L500.2500 ####[facility] [address] [place], [address] Creatinine [Mass/Vol] 0.78 mg/dL Normal 0.70-1.20 [facility] Comment on above: Performed By: #### L 100.0100, L500.2500 ####[facility] [address] [place], [address] ECRCL 41.90 ml/min Low 50-250 [facility] Comment on above: Performed By: #### L 100.0100, L500.2500 ####[facility] [address] [place], [address] GAP 10 Normal 5-15 [facility] Comment on above: Performed By: #### L 100.0100, L500.2500 ####[facility] [address] [place], [address] GFR/1.73 sq M.predicted among non-blacks MDRD (S/P/Bld) [Vol rate/Area] 74 mL/min/{1.73_m2} Normal >60 [facility] Comment on above: Result Comment: mL/m in/1.73m2 CKD-EPI Creatinine Equation (2020) Performed By: #### L 100.0100, L500.2500 ####[facility] [address] [place], [address] Glucose [Mass/Vol] 100 mg/dL High 70-99 [facility] Comment on above: Performed By: #### L 100.0100, L500.2500 ####[facility] [address] [place], [address] Potassium [Moles/Vol] 3.3 mmol/L Normal 3.3-5.1 [facility] Comment on above: Performed By: #### L 100.0100, L500.2500 ####[facility] [address] [place], [address] Sodium [Moles/Vol] 140 mmol/L Normal 133-145 [facility] Comment on above: Performed By: #### L 100.0100, L500.2500 ####[facility] [address] [place], [address] Urea nitrogen [Mass/Vol] 13 mg/dL Normal 4-19 [facility] Comment on above: Performed By: #### L 100.0100, L500.2500 ####[facility] [address] [place], [address] BUN Normal 4-19 [facility] Comment on above: Result Comment: Canc elled via OM: Order cancelled - Patient discharged Performed By: #### L 500.2500, L100.0100 ####[facility] [address] [place], [address] BUN/CRE Normal 10-20 [facility] Comment on above: Result Comment: Canc elled via OM: Order cancelled - Patient discharged Performed By: #### L 500.2500, L100.0100 ####[facility] [address] [place], [address] Calcium Normal 7.6-11.0 [facility] Comment on above: Result Comment: Canc elled via OM: Order cancelled - Patient discharged Performed By: #### L 500.2500, L100.0100 ####[facility] [address] [place], [address] CL Normal 98-108 [facility] Comment on above: Result Comment: Canc elled via OM: Order cancelled - Patient discharged Performed By: #### L 500.2500, L100.0100 ####[facility] [address] [place], [address] CO2 Normal 21.0-32.0 [facility] Comment on above: Result Comment: Canc elled via OM: Order cancelled - Patient discharged Performed By: #### L 500.2500, L100.0100 ####[facility] [address] [place], [address] CREAT,SERUM Normal 0.70-1.20 [facility] Comment on above: Result Comment: Canc elled via OM: Order cancelled - Patient discharged Performed By: #### L 500.2500, L100.0100 ####[facility] [address] [place], [address] eGFR Normal >60 [facility] Comment on above: Result Comment: Canc elled via OM: Order cancelled - Patient discharged Performed By: #### L 500.2500, L100.0100 ####[facility] [address] [place], [address] GAP Normal 5-15 [facility] Comment on above: Result Comment: Canc elled via OM: Order cancelled - Patient discharged Performed By: #### L 500.2500, L100.0100 ####[facility] [address] [place], [address] GLU Normal 70-99 [facility] Comment on above: Result Comment: Canc elled via OM: Order cancelled - Patient discharged Performed By: #### L 500.2500, L100.0100 ####[facility] [address] [place], [address] Potassium Normal 3.3-5.1 [facility] Comment on above: Result Comment: Canc elled via OM: Order cancelled - Patient discharged Performed By: #### L 500.2500, L100.0100 ####[facility] [address] [place], [address] Basic Metabolic Profile (BMP) Normal 133-145 [facility] Comment on above: Result Comment: Canc elled via OM: Order cancelled - Patient discharged Performed By: #### L 500.2500, L100.0100 ####[facility] [address] [place], [address] Basophil percentageOrdered B y: Garfield Sotomayorok on 03-05-2025 Basophils/100 WBC (Bld) 0.5 % 0-[address] [facility] CBC W/Diff, Automatedon - Absolute Lymph 1.57 X10 3/uL Normal 0.83-4.51 [facility] Comment on above: Performed By: #### L 100.0100, L500.2500 ####[facility] [address] [place], [address] Absolute Neut 7.3 X10 3/uL Normal 2.0-7.7 [facility] Comment on above: Performed By: #### L 100.0100, L500.2500 ####[facility] [address] [place], [address] Basophils/100 WBC (Bld) 0.5 % Normal 0-[address] [facility] Comment on above: Performed By: #### L 100.0100, L500.2500 ####[facility] [address] [place], [address] Eosinophils/100 WBC (Bld) 3.5 % Normal 0-5 [facility] Comment on above: Performed By: #### L 100.0100, L500.2500 ####[facility] [address] [place], [address] Erythrocyte distribution width (RBC) [Ratio] 13.2 % Normal 11.6-14.6 [facility] Comment on above: Performed By: #### L 100.0100, L500.2500 ####[facility] [address] [place], [address] Hematocrit (Bld) [Volume fraction] 25.8 % Low 37-47 [facility] Comment on above: Performed By: #### L 100.0100, L500.2500 ####[facility] [address] [place], [address] Hemoglobin (Bld) [Mass/Vol] 9.0 g/dL Low 12.0-15.0 [facility] Comment on above: Performed By: #### L 100.0100, L500.2500 ####[facility] [address] [place], [address] IG% 1.100 High 0.0-0.9 [facility] Comment on above: Result Comment: IG% - Immature Granulocytes (promyelocytes, myelocytes andmetamyelocytes) > 1% indicates that a LEFT SHIFT is Present. Performed By: #### L 100.0100, L500.2500 ####[facility] [address] [place], [address] Lymphocytes/100 WBC (Bld) 15.9 % Low 19-41 [facility] Comment on above: Performed By: #### L 100.0100, L500.2500 ####[facility] [address] [place], [address] MCH (RBC) [Entitic mass] 30.7 pg Normal 27.0-32.0 [facility] Comment on above: Performed By: #### L 100.0100, L500.2500 ####[facility] [address] [place], [address] MCHC (RBC) [Mass/Vol] 34.9 g/dL Normal 32-36 [facility] Comment on above: Performed By: #### L 100.0100, L500.2500 ####[facility] [address] [place], [address] MCV (RBC) [Entitic vol] 88.1 fL Normal 81-[address] [facility] Comment on above: Performed By: #### L 100.0100, L500.2500 ####[facility] [address] [place], [address] Monocytes/100 WBC (Bld) 5.6 % Normal 0-[address] [facility] Comment on above: Performed By: #### L 100.0100, L500.2500 ####[facility] [address] [place], [address] Neutrophils/100 WBC (Bld) 73.4 % High 47-70 [facility] Comment on above: Performed By: #### L 100.0100, L500.2500 ####[facility] [address] [place], [address] Nucleated RBC (Bld) [#/Vol] 0 10*3/uL Normal 0-5 [facility] Comment on above: Performed By: #### L 100.0100, L500.2500 ####[facility] [address] [place], [address] Platelet mean volume (Bld) [Entitic vol] 10.3 fL Normal 6.2-12.0 [facility] Comment on above: Performed By: #### L 100.0100, L500.2500 ####[facility] [address] [place], [address] Platelets (Bld) [#/Vol] 195 10*3/uL Normal 150-450 [facility] Comment on above: Performed By: #### L 100.0100, L500.2500 ####[facility] [address] [place], [address] RBC (Bld) [#/Vol] 2.93 10*6/uL Low 4.2-5.4 [facility] Comment on above: Performed By: #### L 100.0100, L500.2500 ####[facility] [address] [place], [address] RDW SD 42.1 fl Normal 35.1-43.9 [facility] Comment on above: Performed By: #### L 100.0100, L500.2500 ####[facility] [address] [place], [address] WBC (Bld) [#/Vol] 9.9 10*3/uL Normal 4.4-11.0 [facility] Comment on above: Performed By: #### L 100.0100, L500.2500 ####[facility] [address] [place], [address] Absolute Neut Normal 2.0-7.7 [facility] Comment on above: Result Comment: Canc elled via OM: Order cancelled - Patient discharged Performed By: #### L 500.2500, L100.0100 ####[facility] [address] [place], [address] HCT Normal 37-47 [facility] Comment on above: Result Comment: Canc elled via OM: Order cancelled - Patient discharged Performed By: #### L 500.2500, L100.0100 ####[facility] [address] [place], [address] HGB Normal 12.0-15.0 [facility] Comment on above: Result Comment: Canc elled via OM: Order cancelled - Patient discharged Performed By: #### L 500.2500, L100.0100 ####[facility] [address] [place], [address] MCH Normal 27.0-32.0 [facility] Comment on above: Result Comment: Canc elled via OM: Order cancelled - Patient discharged Performed By: #### L 500.2500, L100.0100 ####[facility] [address] [place], [address] MCHC Normal 32-36 [facility] Comment on above: Result Comment: Canc elled via OM: Order cancelled - Patient discharged Performed By: #### L 500.2500, L100.0100 ####[facility] [address] [place], [address] MCV Normal 81-99 [facility] Comment on above: Result Comment: Canc elled via OM: Order cancelled - Patient discharged Performed By: #### L 500.2500, L100.0100 ####[facility] [address] [place], [address] NEUT% Normal 47-70 [facility] Comment on above: Result Comment: Canc elled via OM: Order cancelled - Patient discharged Performed By: #### L 500.2500, L100.0100 ####[facility] [address] [place], [address] PLT Normal 150-450 [facility] Comment on above: Result Comment: Canc elled via OM: Order cancelled - Patient discharged Performed By: #### L 500.2500, L100.0100 ####[facility] [address] [place], [address] RBC Normal 4.2-5.4 [facility] Comment on above: Result Comment: Canc elled via OM: Order cancelled - Patient discharged Performed By: #### L 500.2500, L100.0100 ####[facility] [address] [place], [address] RDW CV Normal 11.6-14.6 [facility] Comment on above: Result Comment: Canc elled via OM: Order cancelled - Patient discharged Performed By: #### L 500.2500, L100.0100 ####[facility] [address] [place], [address] RDW SD Normal 35.1-43.9 [facility] Comment on above: Result Comment: Canc elled via OM: Order cancelled - Patient discharged Performed By: #### L 500.2500, L100.0100 ####[facility] [address] [place], [address] WBC Normal 4.4-11.0 [facility] Comment on above: Result Comment: Canc elled via OM: Order cancelled - Patient discharged Performed By: #### L 500.2500, L100.0100 ####[facility] [address] [place], [address] Carbon dioxide, total [Moles /volume] in Central venous bloodOrdered By: Garfield Yo on 03-05-2025 CO2 [Moles/Vol] 27.5 mmol/L 21.0-32.0 [facility] Chloride assayOrdered By: Kristopher Yo on 03-05-2025 Chloride [Moles/Vol] 102 mmol/L 98-108 [facility] Eosinophil percentageOrdered By: Garfield Yo on 03-05-2025 Eosinophils/100 WBC (Bld) 3.5 % 0-5 [facility] Erythrocyte distribution wid th (RBC) [Ratio]Ordered By: Garfield Yo on 03-05-2025 Erythrocyte distribution width (RBC) [Entitic vol] 42.1 fL 35.1-43.9 [facility] Erythrocyte distribution wid th ratioOrdered By: Garfield Yo 03-05-2025 Erythrocyte distribution width (RBC) [Ratio] 13.2 % 11.6-14.6 [facility] Estimation of creatinine winston aranceOrdered By: Garfield Yo 03-05-2025 Estimated Creatinine Clearance Calc 41.90 ml/min Low 50-250 [facility] GFR/1.73 sq M.predicted arti g non-blacks MDRD (S/P/Bld) [Vol rate/Area]Ordered By: Garfield Yo on 03-05-2025 Estimated GFR (MDRD) Non-Af Amer 74 >60 [facility] Comment on above: mL/min/1.73m2 CKD-EP I Creatinine Equation (2020) Immature granulocytes/100 WB C Auto (Bld)Ordered By: Garfield Yo 03-05-2025 Immature granulocytes/100 WBC (Bld) 1.100 % High 0.0-0.9 [facility] Comment on above: IG% - Immature Granu locytes (promyelocytes, myelocytes and metamyelocytes) > 1% indicates that a LEFT SHIFT is Present. Lymphocytes Auto (Unsp spec) [#/Vol]Ordered By: Garfield Yo 03-05-2025 Lymphocytes (Bld) [#/Vol] 1.57 10*3/uL 0.83-4.51 [facility] Lymphocytes/100 WBC Auto (Un sp spec)Ordered By: Garfield Yo 03-05-2025 Lymphocytes/100 WBC (Bld) 15.9 % Low 19-41 [facility] MCV (mean corpuscular volume ) determinationOrdered By: Garfield Yo on 03-05-2025 MCV (RBC) [Entitic vol] 88.1 fL 81-[address] [facility] Mean corpuscular hemoglobin (MCH) determinationOrdered By: Garfield Yo on 03-05-2025 MCH (RBC) [Entitic mass] 30.7 pg 27.0-32.0 [facility] Mean corpuscular hemoglobin concentration (MCHC) determinationOrdered By: Garfield Yo on 03-05-2025 MCHC (RBC) [Mass/Vol] 34.9 g/dL 32-36 [facility] Mean platelet volume determi nationOrdered By: Garfield Yo on 03-05-2025 Platelet mean volume (Bld) [Entitic vol] 10.3 fL 6.2-12.0 [facility] Monocyte percentageOrdered B y: Garfield Yo on 03-05-2025 Monocytes/100 WBC (Bld) 5.6 % 0-[address] [facility] Neutrophil percentageOrdered By: Garfield Yo on 03-05-2025 Neutrophils/100 WBC (Bld) 73.4 % High 47-70 [facility] Nucleated red blood cell per centageOrdered By: Garfield Yo on 03-05-2025 Nucleated RBC/100 WBC (Bld) [Ratio] 0 % 0-5 [facility] Platelet countOrdered By: Kristopher Yo on 03-05-2025 Platelets (Bld) [#/Vol] 195 10*3/uL 150-450 [facility] Potassium (Unsp spec) [Mass/ Vol]Ordered By: Garfield Yo on 03-05-2025 Potassium [Moles/Vol] 3.3 mmol/L 3.3-5.1 [facility] RBC Auto (Bld) [#/Vol]Ordere d By: Garfield Yo on 03-05-2025 RBC (Bld) [#/Vol] 2.93 10*6/uL Low 4.2-5.4 [facility] Serum creatinine measurement (mass/volume)Ordered By: Garfield Yo on 03-05-2025 Creatinine [Mass/Vol] 0.78 mg/dL 0.70-1.20 [facility] Serum glucose measurement (m ass/volume)Ordered By: Garfield Yo on 03-05-2025 Glucose [Mass/Vol] 100 mg/dL High 70-99 [facility] Serum or plasma calcium thomas urement (mass/volume)Ordered By: Garfield Yo on 03-05-2025 Calcium [Mass/Vol] 8.5 mg/dL 7.6-11.0 [facility] Serum or plasma urea nitroge n measurement (mass/volume)Ordered By: Garfield Yo on 03-05-2025 Urea nitrogen [Mass/Vol] 13 mg/dL 4-19 [facility] Sodium levelOrdered By: Garfield Yo on 03-05-2025 Sodium [Moles/Vol] 140 mmol/L 133-145 [facility] White blood cell (WBC) count Ordered By: Garfield Yo on 03-05-2025 WBC (Bld) [#/Vol] 9.9 10*3/uL 4.4-11.0 [facility] Absolute lymphocyte countOrd ered By: Allison Tran on 03-04-2025 Lymphocytes Auto (Unsp spec) [#/Vol] 1.35 10*3/uL 0.83-4.51 [facility] Absolute neutrophil countOrd ered By: Allison Tran on 03-04-2025 Neutrophils (Bld) [#/Vol] 9.0 10*3/uL High 2.0-7.7 [facility] Anion gap in Serum or Plasma Ordered By: Allison Tran on 03-04-2025 Anion gap [Moles/Vol] 10 mmol/L 5-15 [facility] Automated lymphocyte count a s percentage of total leukocytesOrdered By: Allison Tran on 03-04-2025 Lymphocytes/100 WBC Auto (Unsp spec) 11.6 % Low 19-41 [facility] BUN/creatinine ratioOrdered By: Allison Tran on 03-04-2025 Urea nitrogen/Creatinine [Mass ratio] 18.5 mg/mg 10- [facility] Basic Metabolic Profile (BMP )on 03-04-2025 BUN/CRE 18.5 RATIO Normal - [facility] Comment on above: Performed By: #### L 100.0100, L500.2500 ####[facility] [address] [place], [address] Calcium [Mass/Vol] 8.4 mg/dL Normal 7.6-11.0 [facility] Comment on above: Performed By: #### L 100.0100, L500.2500 ####[facility] [address] [place], [address] Chloride [Moles/Vol] 103 mmol/L Normal 98-108 [facility] Comment on above: Performed By: #### L 100.0100, L500.2500 ####[facility] [address] [place], [address] CO2 [Moles/Vol] 26.0 mmol/L Normal 21.0-32.0 [facility] Comment on above: Performed By: #### L 100.0100, L500.2500 ####[facility] [address] [place], [address] Creatinine [Mass/Vol] 0.76 mg/dL Normal 0.70-1.20 [facility] Comment on above: Performed By: #### L 100.0100, L500.2500 ####[facility] [address] [place], [address] ECRCL 41.63 ml/min Low 50-250 [facility] Comment on above: Performed By: #### L 100.0100, L500.2500 ####[facility] [address] [place], [address] GAP 10 Normal 5-15 [facility] Comment on above: Performed By: #### L 100.0100, L500.2500 ####[facility] [address] [place], [address] GFR/1.73 sq M.predicted among non-blacks MDRD (S/P/Bld) [Vol rate/Area] 77 mL/min/{1.73_m2} Normal >60 [facility] Comment on above: Result Comment: mL/m in/1.73m2 CKD-EPI Creatinine Equation (2020) Performed By: #### L 100.0100, L500.2500 ####[facility] [address] [place], [address] Glucose [Mass/Vol] 112 mg/dL High 70-99 [facility] Comment on above: Performed By: #### L 100.0100, L500.2500 ####[facility] [address] [place], [address] Potassium [Moles/Vol] 3.7 mmol/L Normal 3.3-5.1 [facility] Comment on above: Performed By: #### L 100.0100, L500.2500 ####[facility] [address] [place], [address] Sodium [Moles/Vol] 139 mmol/L Normal 133-145 [facility] Comment on above: Performed By: #### L 100.0100, L500.2500 ####[facility] [address] [place], [address] Urea nitrogen [Mass/Vol] 14 mg/dL Normal 4-19 [facility] Comment on above: Performed By: #### L 100.0100, L500.2500 ####[facility] [address] [place], [address] Basophil percentageOrdered B y: Allison Tran on 03-04-2025 Basophils/100 WBC (Bld) 0.6 % 0-[address] [facility] CBC W/Diff, Automatedon 02-17 Absolute Lymph 1.35 X10 3/uL Normal 0.83-4.51 [facility] Comment on above: Performed By: #### L 100.0100, L500.2500 ####[facility] [address] [place], [address] Absolute Neut 9.0 X10 3/uL High 2.0-7.7 [facility] Comment on above: Performed By: #### L 100.0100, L500.2500 ####[facility] [address] [place], [address] Basophils/100 WBC (Bld) 0.6 % Normal 0-[address] [facility] Comment on above: Performed By: #### L 100.0100, L500.2500 ####[facility] [address] [place], [address] Eosinophils/100 WBC (Bld) 1.8 % Normal 0-5 [facility] Comment on above: Performed By: #### L 100.0100, L500.2500 ####[facility] [address] [place], [address] Erythrocyte distribution width (RBC) [Ratio] 13.2 % Normal 11.6-14.6 [facility] Comment on above: Performed By: #### L 100.0100, L500.2500 ####[facility] [address] [place], [address] Hematocrit (Bld) [Volume fraction] 24.6 % Low 37-47 [facility] Comment on above: Performed By: #### L 100.0100, L500.2500 ####[facility] [address] [place], [address] Hemoglobin (Bld) [Mass/Vol] 8.5 g/dL Low 12.0-15.0 [facility] Comment on above: Performed By: #### L 100.0100, L500.2500 ####[facility] [address] [place], [address] IG% 0.900 Normal 0.0-0.9 [facility] Comment on above: Result Comment: IG% - Immature Granulocytes (promyelocytes, myelocytes andmetamyelocytes) > 1% indicates that a LEFT SHIFT is Present. Performed By: #### L 100.0100, L500.2500 ####[facility] [address] [place], [address] Lymphocytes/100 WBC (Bld) 11.6 % Low 19-41 [facility] Comment on above: Performed By: #### L 100.0100, L500.2500 ####[facility] [address] [place], [address] MCH (RBC) [Entitic mass] 29.9 pg Normal 27.0-32.0 [facility] Comment on above: Performed By: #### L 100.0100, L500.2500 ####[facility] [address] [place], [address] MCHC (RBC) [Mass/Vol] 34.6 g/dL Normal 32-36 [facility] Comment on above: Performed By: #### L 100.0100, L500.2500 ####[facility] [address] [place], [address] MCV (RBC) [Entitic vol] 86.6 fL Normal 81-99 [facility] Comment on above: Performed By: #### L 100.0100, L500.2500 ####[facility] [address] [place], [address] Monocytes/100 WBC (Bld) 7.6 % Normal 0-10 [facility] Comment on above: Performed By: #### L 100.0100, L500.2500 ####[facility] [address] [place], [address] Neutrophils/100 WBC (Bld) 77.5 % High 47-70 [facility] Comment on above: Performed By: #### L 100.0100, L500.2500 ####[facility] [address] [place], [address] Nucleated RBC (Bld) [#/Vol] 0 10*3/uL Normal 0-5 [facility] Comment on above: Performed By: #### L 100.0100, L500.2500 ####[facility] [address] [place], [address] Platelet mean volume (Bld) [Entitic vol] 10.3 fL Normal 6.2-12.0 [facility] Comment on above: Performed By: #### L 100.0100, L500.2500 ####[facility] [address] [place], [address] Platelets (Bld) [#/Vol] 177 10*3/uL Normal 150-450 [facility] Comment on above: Performed By: #### L 100.0100, L500.2500 ####[facility] [address] [place], [address] RBC (Bld) [#/Vol] 2.84 10*6/uL Low 4.2-5.4 [facility] Comment on above: Performed By: #### L 100.0100, L500.2500 ####[facility] [address] [place], [address] RDW SD 41.2 fl Normal 35.1-43.9 [facility] Comment on above: Performed By: #### L 100.0100, L500.2500 ####[facility] [address] [place], [address] WBC (Bld) [#/Vol] 11.6 10*3/uL High 4.4-11.0 [facility] Comment on above: Performed By: #### L 100.0100, L500.2500 ####[facility] [address] [place], [address] Carbon dioxide, total [Moles /volume] in Central venous bloodOrdered By: Allison Tran on 03-04-2025 CO2 [Moles/Vol] 26.0 mmol/L 21.0-32.0 [facility] Chloride assayOrdered By: Jessica Tran on 03-04-2025 Chloride [Moles/Vol] 103 mmol/L 98-108 [facility] Eosinophil percentageOrdered By: Allison Tran on 03-04-2025 Eosinophils/100 WBC (Bld) 1.8 % 0-5 [facility] Erythrocyte distribution wid th (RBC) [Ratio]Ordered By: Allison Tran on 03-04-2025 Erythrocyte distribution width (RBC) [Entitic vol] 41.2 fL 35.1-43.9 [facility] Erythrocyte distribution wid th ratioOrdered By: Allison Tran on 03-04-2025 Erythrocyte distribution width (RBC) [Ratio] 13.2 % 11.6-14.6 [facility] Erythrocyte distribution wid th standard deviationOrdered By: Allison Tran on 03-04-2025 Erythrocyte distribution width (RBC) [Ratio] 41.2 fl 35.1-43.9 [facility] Estimation of creatinine winston aranceOrdered By: Allison Tran on 03-04-2025 Estimated Creatinine Clearance Calc 41.63 ml/min Low 50-250 [facility] GFR/1.73 sq M.predicted arti g non-blacks MDRD (S/P/Bld) [Vol rate/Area]Ordered By: Allison Tran 03-04-2025 Estimated GFR (MDRD) Non-Af Amer 77 >60 [facility] Comment on above: mL/min/1.73m2 CKD-EP I Creatinine Equation (2020) Glomerular filtration rate ( GFR) estimation/1.73 sq m using serum, plasma, or whole bOrdered By: Allison Tran 03-04-2025 GFR/1.73 sq M.predicted among non-blacks MDRD (S/P/Bld) [Vol rate/Area] 77 mL/min/{1.73_m2} >60 [facility] Comment on above: mL/min/1.73m2 CKD-EP I Creatinine Equation (2020) Hematocrit Auto (Bld) [Volum e fraction]Ordered By: Allison Tran on 03-04-2025 Hematocrit (Bld) [Volume fraction] 24.6 % Low 37-47 [facility] Hemoglobin measurementOrdere d By: Allison Tran 03-04-2025 Hemoglobin (Bld) [Mass/Vol] 8.5 g/dL Low 12.0-15.0 [facility] Immature granulocytes/100 WB C Auto (Bld)Ordered By: Allison Tran on 03-04-2025 Immature granulocytes/100 WBC (Bld) 0.900 % 0.0-0.9 [facility] Comment on above: IG% - Immature Granu locytes (promyelocytes, myelocytes and metamyelocytes) > 1% indicates that a LEFT SHIFT is Present. Lymphocytes Auto (Unsp spec) [#/Vol]Ordered By: Allison Tran on 03-04-2025 Lymphocytes (Bld) [#/Vol] 1.35 10*3/uL 0.83-4.51 [facility] Lymphocytes/100 WBC Auto (Un sp spec)Ordered By: Allison Tran on 03-04-2025 Lymphocytes/100 WBC (Bld) 11.6 % Low 19-41 [facility] MCV (mean corpuscular volume ) determinationOrdered By: Allison Tran on 03-04-2025 MCV (RBC) [Entitic vol] 86.6 fL 81-[address] [facility] Mean corpuscular hemoglobin (MCH) determinationOrdered By: Allison Tran 03-04-2025 MCH (RBC) [Entitic mass] 29.9 pg 27.0-32.0 [facility] Mean corpuscular hemoglobin concentration (MCHC) determinationOrdered By: Allison Tran on 03-04-2025 MCHC (RBC) [Mass/Vol] 34.6 g/dL 32-36 [facility] Mean platelet volume determi nationOrdered By: Allison Tran on 03-04-2025 Platelet mean volume (Bld) [Entitic vol] 10.3 fL 6.2-12.0 [facility] Monocyte percentageOrdered B y: Allison Tran on 03-04-2025 Monocytes/100 WBC (Bld) 7.6 % 0-[address] [facility] Neutrophil percentageOrdered By: Allison Tran on 03-04-2025 Neutrophils/100 WBC (Bld) 77.5 % High 47-70 [facility] Nucleated red blood cell per centageOrdered By: Allison Tran on 03-04-2025 Nucleated RBC/100 WBC (Bld) [Ratio] 0 % 0-5 [facility] Platelet countOrdered By: Jessica Tran on 03-04-2025 Platelets (Bld) [#/Vol] 177 10*3/uL 150-450 [facility] Potassium (Unsp spec) [Mass/ Vol]Ordered By: Allison Tran on 03-04-2025 Potassium [Moles/Vol] 3.7 mmol/L 3.3-5.1 [facility] Potassium measurement (mass/ volume)Ordered By: Allison Tran on 03-04-2025 Potassium (Unsp spec) [Mass/Vol] 3.7 mmol/L 3.3-5.1 [facility] RBC Auto (Bld) [#/Vol]Ordere d By: Allison Tran on 03-04-2025 RBC (Bld) [#/Vol] 2.84 10*6/uL Low 4.2-5.4 [facility] Serum creatinine measurement (mass/volume)Ordered By: Allison Tran on 03-04-2025 Creatinine [Mass/Vol] 0.76 mg/dL 0.70-1.20 [facility] Serum glucose measurement (m ass/volume)Ordered By: Allison Tran on 03-04-2025 Glucose [Mass/Vol] 112 mg/dL High 70-99 [facility] Serum or plasma calcium thomas urement (mass/volume)Ordered By: Allison Tran on 03-04-2025 Calcium [Mass/Vol] 8.4 mg/dL 7.6-11.0 [facility] Serum or plasma urea nitroge n measurement (mass/volume)Ordered By: Allison Tran on 03-04-2025 Urea nitrogen [Mass/Vol] 14 mg/dL 4-19 [facility] Sodium levelOrdered By: Allison Tran on 03-04-2025 Sodium [Moles/Vol] 139 mmol/L 133-145 [facility] White blood cell (WBC) count Ordered By: Allison Tran on 03-04-2025 WBC (Bld) [#/Vol] 11.6 10*3/uL High 4.4-11.0 [facility] Basic Metabolic Profile (BMP )on 03-03-2025 BUN/CRE 13.6 RATIO Normal 10-20 [facility] Comment on above: Performed By: #### L 100.0100, L500.2500 ####[facility] [address] [place], [address] Calcium [Mass/Vol] 8.3 mg/dL Normal 7.6-11.0 [facility] Comment on above: Performed By: #### L 100.0100, L500.2500 ####[facility] [address] [place], [address] Chloride [Moles/Vol] 102 mmol/L Normal 98-108 [facility] Comment on above: Performed By: #### L 100.0100, L500.2500 ####[facility] [address] [place], [address] CO2 [Moles/Vol] 25.7 mmol/L Normal 21.0-32.0 [facility] Comment on above: Performed By: #### L 100.0100, L500.2500 ####[facility] [address] [place], [address] Creatinine [Mass/Vol] 0.94 mg/dL Normal 0.70-1.20 [facility] Comment on above: Performed By: #### L 100.0100, L500.2500 ####[facility] [address] [place], [address] ECRCL 35.43 ml/min Low 50-250 [facility] Comment on above: Performed By: #### L 100.0100, L500.2500 ####[facility] [address] [place], [address] GAP 10 Normal 5-15 [facility] Comment on above: Performed By: #### L 100.0100, L500.2500 ####[facility] [address] [place], [address] GFR/1.73 sq M.predicted among non-blacks MDRD (S/P/Bld) [Vol rate/Area] 60 mL/min/{1.73_m2} Normal >60 [facility] Comment on above: Result Comment: mL/m in/1.73m2 CKD-EPI Creatinine Equation (2020) Performed By: #### L 100.0100, L500.2500 ####[facility] [address] [place], [address] Glucose [Mass/Vol] 102 mg/dL High 70-99 [facility] Comment on above: Performed By: #### L 100.0100, L500.2500 ####[facility] [address] [place], [address] Potassium [Moles/Vol] 3.9 mmol/L Normal 3.3-5.1 [facility] Comment on above: Result Comment: Hemo lysis present, Results??could be affected.?? Performed By: #### L 100.0100, L500.2500 ####[facility] [address] [place], [address] Sodium [Moles/Vol] 137 mmol/L Normal 133-145 [facility] Comment on above: Performed By: #### L 100.0100, L500.2500 ####[facility] [address] [place], [address] Urea nitrogen [Mass/Vol] 13 mg/dL Normal 4-19 [facility] Comment on above: Performed By: #### L 100.0100, L500.2500 ####[facility] [address] [place], [address] CBC W/Diff, Automatedon 02-17 Absolute Lymph 1.61 X10 3/uL Normal 0.83-4.51 [facility] Comment on above: Performed By: #### L 100.0100, L500.2500 ####[facility] [address] [place], [address] Absolute Neut 9.5 X10 3/uL High 2.0-7.7 [facility] Comment on above: Performed By: #### L 100.0100, L500.2500 ####[facility] [address] [place], [address] Basophils/100 WBC (Bld) 0.5 % Normal 0-[address] [facility] Comment on above: Performed By: #### L 100.0100, L500.2500 ####[facility] [address] [place], [address] Eosinophils/100 WBC (Bld) 1.9 % Normal 0-5 [facility] Comment on above: Performed By: #### L 100.0100, L500.2500 ####[facility] [address] [place], [address] Erythrocyte distribution width (RBC) [Ratio] 13.2 % Normal 11.6-14.6 [facility] Comment on above: Performed By: #### L 100.0100, L500.2500 ####[facility] [address] [place], [address] Hematocrit (Bld) [Volume fraction] 25.5 % Low 37-47 [facility] Comment on above: Performed By: #### L 100.0100, L500.2500 ####[facility] [address] [place], [address] Hemoglobin (Bld) [Mass/Vol] 8.7 g/dL Low 12.0-15.0 [facility] Comment on above: Performed By: #### L 100.0100, L500.2500 ####[facility] [address] [place], [address] IG% 0.800 Normal 0.0-0.9 [facility] Comment on above: Result Comment: IG% - Immature Granulocytes (promyelocytes, myelocytes andmetamyelocytes) > 1% indicates that a LEFT SHIFT is Present. Performed By: #### L 100.0100, L500.2500 ####[facility] [address] [place], [address] Lymphocytes/100 WBC (Bld) 12.6 % Low 19-41 [facility] Comment on above: Performed By: #### L 100.0100, L500.2500 ####[facility] [address] [place], [address] MCH (RBC) [Entitic mass] 30.2 pg Normal 27.0-32.0 [facility] Comment on above: Performed By: #### L 100.0100, L500.2500 ####[facility] [address] [place], [address] MCHC (RBC) [Mass/Vol] 34.1 g/dL Normal 32-36 [facility] Comment on above: Performed By: #### L 100.0100, L500.2500 ####[facility] [address] [place], [address] MCV (RBC) [Entitic vol] 88.5 fL Normal 81-99 [facility] Comment on above: Performed By: #### L 100.0100, L500.2500 ####[facility] [address] [place], [address] Monocytes/100 WBC (Bld) 9.6 % Normal 0-[address] [facility] Comment on above: Performed By: #### L 100.0100, L500.2500 ####[facility] [address] [place], [address] Neutrophils/100 WBC (Bld) 74.6 % High 47-70 [facility] Comment on above: Performed By: #### L 100.0100, L500.2500 ####[facility] [address] [place], [address] Nucleated RBC (Bld) [#/Vol] 0 10*3/uL Normal 0-5 [facility] Comment on above: Performed By: #### L 100.0100, L500.2500 ####[facility] [address] [place], [address] Platelet mean volume (Bld) [Entitic vol] 10.4 fL Normal 6.2-12.0 [facility] Comment on above: Performed By: #### L 100.0100, L500.2500 ####[facility] [address] [place], [address] Platelets (Bld) [#/Vol] 171 10*3/uL Normal 150-450 [facility] Comment on above: Performed By: #### L 100.0100, L500.2500 ####[facility] [address] [place], [address] RBC (Bld) [#/Vol] 2.88 10*6/uL Low 4.2-5.4 [facility] Comment on above: Performed By: #### L 100.0100, L500.2500 ####[facility] [address] [place], [address] RDW SD 42.8 fl Normal 35.1-43.9 [facility] Comment on above: Performed By: #### L 100.0100, L500.2500 ####[facility] [address] [place], [address] WBC (Bld) [#/Vol] 12.8 10*3/uL High 4.4-11.0 [facility] Comment on above: Performed By: #### L 100.0100, L500.2500 ####[facility] [address] [place], [address] MR/IVDSCVOV8kw 04-15-2025 MR/POSTOPAN2 Normal [facility] Bilirubin, totalOrdered By: Roro Long on 03-02-2025 Bilirubin [Mass/Vol] 1.32 mg/dL High 0.00-1.30 [facility] CBC W/Diff, Automatedon 02-17 Absolute Lymph 1.50 X10 3/uL Normal 0.83-4.51 [facility] Comment on above: Performed By: #### L 501.9520, L501.5200, L100.0100, L501.2300, L500.4050 ####[facility] [address] [place], [address] Absolute Neut 9.9 X10 3/uL High 2.0-7.7 [facility] Comment on above: Performed By: #### L 501.9520, L501.5200, L100.0100, L501.2300, L500.4050 ####[facility] [address] [place], [address] Basophils/100 WBC (Bld) 0.4 % Normal 0-[address] [facility] Comment on above: Performed By: #### L 501.9520, L501.5200, L100.0100, L501.2300, L500.4050 ####[facility] [address] [place], [address] Eosinophils/100 WBC (Bld) 0.9 % Normal 0-5 [facility] Comment on above: Performed By: #### L 501.9520, L501.5200, L100.0100, L501.2300, L500.4050 ####[facility] [address] [place], [address] Erythrocyte distribution width (RBC) [Ratio] 13.2 % Normal 11.6-14.6 [facility] Comment on above: Performed By: #### L 501.9520, L501.5200, L100.0100, L501.2300, L500.4050 ####[facility] [address] [place], [address] Hematocrit (Bld) [Volume fraction] 33.7 % Low 37-47 [facility] Comment on above: Performed By: #### L 501.9520, L501.5200, L100.0100, L501.2300, L500.4050 ####[facility] [address] [place], [address] Hemoglobin (Bld) [Mass/Vol] 11.6 g/dL Low 12.0-15.0 [facility] Comment on above: Performed By: #### L 501.9520, L501.5200, L100.0100, L501.2300, L500.4050 ####[facility] [address] [place], [address] IG% 0.900 Normal 0.0-0.9 [facility] Comment on above: Result Comment: IG% - Immature Granulocytes (promyelocytes, myelocytes andmetamyelocytes) > 1% indicates that a LEFT SHIFT is Present. Performed By: #### L 501.9520, L501.5200, L100.0100, L501.2300, L500.4050 ####[facility] [address] [place], [address] Lymphocytes/100 WBC (Bld) 11.6 % Low 19-41 [facility] Comment on above: Performed By: #### L 501.9520, L501.5200, L100.0100, L501.2300, L500.4050 ####[facility] [address] [place], [address] MCH (RBC) [Entitic mass] 30.5 pg Normal 27.0-32.0 [facility] Comment on above: Performed By: #### L 501.9520, L501.5200, L100.0100, L501.2300, L500.4050 ####[facility] [address] [place], [address] MCHC (RBC) [Mass/Vol] 34.4 g/dL Normal 32-36 [facility] Comment on above: Performed By: #### L 501.9520, L501.5200, L100.0100, L501.2300, L500.4050 ####[facility] [address] [place], [address] MCV (RBC) [Entitic vol] 88.7 fL Normal 81-99 [facility] Comment on above: Performed By: #### L 501.9520, L501.5200, L100.0100, L501.2300, L500.4050 ####[facility] [address] [place], [address] Monocytes/100 WBC (Bld) 9.5 % Normal 0-10 [facility] Comment on above: Performed By: #### L 501.9520, L501.5200, L100.0100, L501.2300, L500.4050 ####[facility] [address] [place], [address] Neutrophils/100 WBC (Bld) 76.7 % High 47-70 [facility] Comment on above: Performed By: #### L 501.9520, L501.5200, L100.0100, L501.2300, L500.4050 ####[facility] [address] [place], [address] Nucleated RBC (Bld) [#/Vol] 0 10*3/uL Normal 0-5 [facility] Comment on above: Performed By: #### L 501.9520, L501.5200, L100.0100, L501.2300, L500.4050 ####[facility] [address] [place], [address] Platelet mean volume (Bld) [Entitic vol] 9.5 fL Normal 6.2-12.0 [facility] Comment on above: Performed By: #### L 501.9520, L501.5200, L100.0100, L501.2300, L500.4050 ####[facility] [address] [place], [address] Platelets (Bld) [#/Vol] 203 10*3/uL Normal 150-450 [facility] Comment on above: Performed By: #### L 501.9520, L501.5200, L100.0100, L501.2300, L500.4050 ####[facility] [address] [place], [address] RBC (Bld) [#/Vol] 3.80 10*6/uL Low 4.2-5.4 [facility] Comment on above: Performed By: #### L 501.9520, L501.5200, L100.0100, L501.2300, L500.4050 ####[facility] [address] [place], [address] RDW SD 42.8 fl Normal 35.1-43.9 [facility] Comment on above: Performed By: #### L 501.9520, L501.5200, L100.0100, L501.2300, L500.4050 ####[facility] [address] [place], [address] WBC (Bld) [#/Vol] 12.9 10*3/uL High 4.4-11.0 [facility] Comment on above: Performed By: #### L 501.9520, L501.5200, L100.0100, L501.2300, L500.4050 ####[facility] [address] [place], [address] Comprehensive Metabolic Prof [facility] 03-02-2025 Albumin [Mass/Vol] 3.7 g/dL Normal 3.4-4.8 [facility] Comment on above: Performed By: #### L 501.9520, L501.5200, L100.0100, L501.2300, L500.4050 ####[facility] [address] [place], [address] Albumin/Globulin [Mass ratio] 1.6 {ratio} Normal 0.9-2.4 [facility] Comment on above: Performed By: #### L 501.9520, L501.5200, L100.0100, L501.2300, L500.4050 ####[facility] [address] [place], [address] ALK PHOS 55 U/L Normal 35-104 [facility] Comment on above: Performed By: #### L 501.9520, L501.5200, L100.0100, L501.2300, L500.4050 ####[facility] [address] [place], [address] ALT [Catalytic activity/Vol] 11 U/L Normal <=34 [facility] Comment on above: Performed By: #### L 501.9520, L501.5200, L100.0100, L501.2300, L500.4050 ####[facility] [address] [place], [address] AST [Catalytic activity/Vol] 27 U/L Normal <=31 [facility] Comment on above: Performed By: #### L 501.9520, L501.5200, L100.0100, L501.2300, L500.4050 ####[facility] [address] [place], [address] Bilirubin [Mass/Vol] 1.32 mg/dL High 0.00-1.30 [facility] Comment on above: Performed By: #### L 501.9520, L501.5200, L100.0100, L501.2300, L500.4050 ####[facility] [address] [place], [address] BUN/CRE 15.4 RATIO Normal 10-20 [facility] Comment on above: Performed By: #### L 501.9520, L501.5200, L100.0100, L501.2300, L500.4050 ####[facility] [address] [place], [address] Calcium [Mass/Vol] 9.0 mg/dL Normal 7.6-11.0 [facility] Comment on above: Performed By: #### L 501.9520, L501.5200, L100.0100, L501.2300, L500.4050 ####[facility] [address] [place], [address] Chloride [Moles/Vol] 103 mmol/L Normal 98-108 [facility] Comment on above: Performed By: #### L 501.9520, L501.5200, L100.0100, L501.2300, L500.4050 ####[facility] [address] [place], [address] CO2 [Moles/Vol] 27.7 mmol/L Normal 21.0-32.0 [facility] Comment on above: Performed By: #### L 501.9520, L501.5200, L100.0100, L501.2300, L500.4050 ####[facility] [address] [place], [address] Creatinine [Mass/Vol] 1.06 mg/dL Normal 0.70-1.20 [facility] Comment on above: Performed By: #### L 501.9520, L501.5200, L100.0100, L501.2300, L500.4050 ####[facility] [address] [place], [address] ECRCL 31.45 ml/min Low 50-250 [facility] Comment on above: Performed By: #### L 501.9520, L501.5200, L100.0100, L501.2300, L500.4050 ####[facility] [address] [place], [address] GAP 9 Normal 5-15 [facility] Comment on above: Performed By: #### L 501.9520, L501.5200, L100.0100, L501.2300, L500.4050 ####[facility] [address] [place], [address] GFR/1.73 sq M.predicted among non-blacks MDRD (S/P/Bld) [Vol rate/Area] 52 mL/min/{1.73_m2} Low >60 [facility] Comment on above: Result Comment: mL/m in/1.73m2 CKD-EPI Creatinine Equation (2020) Performed By: #### L 501.9520, L501.5200, L100.0100, L501.2300, L500.4050 ####[facility] [address] [place], [address] Globulin (S) [Mass/Vol] 2.3 g/dL Normal 2.2-4.2 [facility] Comment on above: Performed By: #### L 501.9520, L501.5200, L100.0100, L501.2300, L500.4050 ####[facility] [address] [place], [address] Glucose [Mass/Vol] 109 mg/dL High 70-99 [facility] Comment on above: Performed By: #### L 501.9520, L501.5200, L100.0100, L501.2300, L500.4050 ####[facility] [address] [place], [address] Potassium [Moles/Vol] 4.0 mmol/L Normal 3.3-5.1 [facility] Comment on above: Performed By: #### L 501.9520, L501.5200, L100.0100, L501.2300, L500.4050 ####[facility] [address] [place], [address] Sodium [Moles/Vol] 140 mmol/L Normal 133-145 [facility] Comment on above: Performed By: #### L 501.9520, L501.5200, L100.0100, L501.2300, L500.4050 ####[facility] [address] [place], [address] T PROT 6.0 g/dL Normal 5.9-8.4 [facility] Comment on above: Performed By: #### L 501.9520, L501.5200, L100.0100, L501.2300, L500.4050 ####[facility] [address] [place], [address] Urea nitrogen [Mass/Vol] 16 mg/dL Normal 4-19 [facility] Comment on above: Performed By: #### L 501.9520, L501.5200, L100.0100, L501.2300, L500.4050 ####[facility] [address] [place], [address] Consultation - Orthopedicson 03-02-2025 Consultation - Orthopedics Normal [facility] Electrocardiogram reportOrde red By: Grazyna Santizo on 03-02-2025 EKG study [facility] [address] [place] [address] 12 Lead EKG 03/01/25 1232 MR#: [id number] Acct: [id number] Name: MICHAELA BRANDT Rep #:[id number] : [...] normal variant ( R in aVL , Taft product ) Borderline ECG Confirmed by Grazyna Santizo ([id number]), assistant editor GABI PALOMARES ([id number]) on 51:19:11 PM Referred By: Confirmed By: Grazyna Santizo 03/02/25 1319 Date _ Grazyna Santizo MD CC: Dr. Dillan Santiago MD; Dr. Guerrero Valerio DO; Dr. Allison Tran MD ~ Signed [facility] Other Phone: Hip Min 2 Views (Portable)on 03-02-2025 Hip Min 2 Views (Portable) Normal [facility] Hip Min 2 Views (Portable) Normal [facility] Laboratory - Chemistry and C hemistry - challengeOrdered By: Roro Long on 03-02-2025 AST [Catalytic activity/Vol] 27 U/L <32 [facility] MR/POSTOP.ANEon 03-02-2025 MR/POSTOP.ANE Normal [facility] Magnesiumon 03-02-2025 Magnesium [Mass/Vol] 2.2 mg/dL Normal 1.5-2.2 [facility] Comment on above: Performed By: #### L 501.9520, L501.5200, L100.0100, L501.2300, L500.4050 ####[facility] [address] [place], [place], [address] Magnesium (Unsp spec) [Mass/ Vol]Ordered By: Roro Long on 03-02-2025 Magnesium [Mass/Vol] 2.2 mg/dL 1.5-2.2 [facility] Magnesium measurement (mass/ volume)Ordered By: Roro Long on 03-02-2025 Magnesium (Unsp spec) [Mass/Vol] 2.2 mg/dL 1.5-2.2 [facility] Operative Reporton Operative Report Normal [facility] Phosphoruson 03-02-2025 Phosphate [Mass/Vol] 4.0 mg/dL Normal 2.7-4.5 [facility] Comment on above: Performed By: #### L 501.9520, L501.5200, L100.0100, L501.2300, L500.4050 ####[facility] [address] [place], [address] Serum globulin measurementOr dered By: Roro Long on 03-02-2025 Globulin (S) [Mass/Vol] 2.3 g/dL 2.2-4.2 [facility] Serum or plasma alanine tillman otransferase (ALT) measurementOrdered By: Roro Long on 03-02-2025 ALT [Catalytic activity/Vol] 11 U/L <35 [facility] Serum or plasma albumin thomas urement (mass/volume)Ordered By: Roro Long on 03-02-2025 Albumin [Mass/Vol] 3.7 g/dL 3.4-4.8 [facility] Serum or plasma albumin/glob ulin mass ratioOrdered By: Rroo Long on 03-02-2025 Albumin/Globulin [Mass ratio] 1.6 {ratio} 0.9-2.4 [facility] Serum or plasma alkaline mariah sphatase measurementOrdered By: Roro Long on 03-02-2025 ALP [Catalytic activity/Vol] 55 U/L 35-104 [facility] Serum phosphorus measurement Ordered By: Roro Long on 03-02-2025 Phosphorus Level 4.0 mg/dL 2.7-4.5 [facility] TSH DL <= 0.005 mIU/L QnOrde red By: Roro Long on 03-02-2025 Thyroid Stimulating Hormone (TSH) 1.470 uIU/mL 0.300-4.200 [facility] TSH Qn 1.470 uIU/mL 0.300-4.200 [facility] Thyroid Stim Hormone (TSH)on 03-02-2025 TSH 1.470 uIU/mL Normal 0.300-4.200 [facility] Comment on above: Performed By: #### L 501.9520, L501.5200, L100.0100, L501.2300, L500.4050 ####[facility] [address] [place], [address] Total proteinOrdered By: Indu Long on 03-02-2025 Protein [Mass/Vol] 6.0 g/dL 5.9-8.4 [facility] 12 Lead EKGon 03-01-2025 12 Lead EKG Normal [facility] Absolute neutrophil countOrd ered By: Guerrero Valerio on 03-01-2025 Neutrophils (Bld) [#/Vol] 17.3 10*3/uL High 2.0-7.7 [facility] Activated partial thrombopla stin time (aPTT) in platelet poor plasma by coagulation aOrdered By: Guerrero Valerio on 03-01-2025 aPTT Coag (PPP) [Time] 25.8 s 24.1-36.2 [facility] Anion gap in Serum or Plasma Ordered By: Guerrero Valerio on 03-01-2025 Anion gap [Moles/Vol] 11 mmol/L 04-02 [facility] BUN/creatinine ratioOrdered By: Guerrero Valerio on 03-01-2025 Urea nitrogen/Creatinine [Mass ratio] 17.4 mg/mg - [facility] Basic Metabolic Profile (BMP )on 03-01-2025 BUN/CRE 17.4 RATIO Normal 09-07 [facility] Comment on above: Performed By: #### L 500.2500, L300.4310, L300.3900, BTS, L100.0100 ####[facility] [address] [place], [address] Calcium [Mass/Vol] 9.2 mg/dL Normal 7.6-11.0 [facility] Comment on above: Performed By: #### L 500.2500, L300.4310, L300.3900, BTS, L100.0100 ####[facility] [address] [place], [address] Chloride [Moles/Vol] 104 mmol/L Normal 98-108 [facility] Comment on above: Performed By: #### L 500.2500, L300.4310, L300.3900, BTS, L100.0100 ####[facility] [address] [place], [address] CO2 [Moles/Vol] 25.2 mmol/L Normal 21.0-32.0 [facility] Comment on above: Performed By: #### L 500.2500, L300.4310, L300.3900, BTS, L100.0100 ####[facility] [address] [place], [address] Creatinine [Mass/Vol] 0.90 mg/dL Normal 0.70-1.20 [facility] Comment on above: Performed By: #### L 500.2500, L300.4310, L300.3900, BTS, L100.0100 ####[facility] [address] [place], [address] ECRCL 37.62 ml/min Low 50-250 [facility] Comment on above: Performed By: #### L 500.2500, L300.4310, L300.3900, BTS, L100.0100 ####[facility] [address] [place], [address] GAP 11 Normal 5-15 [facility] Comment on above: Performed By: #### L 500.2500, L300.4310, L300.3900, BTS, L100.0100 ####[facility] [address] [place], [address] GFR/1.73 sq M.predicted among non-blacks MDRD (S/P/Bld) [Vol rate/Area] 63 mL/min/{1.73_m2} Normal >60 [facility] Comment on above: Result Comment: mL/m in/1.73m2 CKD-EPI Creatinine Equation (2020) Performed By: #### L 500.2500, L300.4310, L300.3900, BTS, L100.0100 ####[facility] [address] [place], [address] Glucose [Mass/Vol] 148 mg/dL High 70-99 [facility] Comment on above: Performed By: #### L 500.2500, L300.4310, L300.3900, BTS, L100.0100 ####[facility] [address] [place], [address] Potassium [Moles/Vol] 4.2 mmol/L Normal 3.3-5.1 [facility] Comment on above: Performed By: #### L 500.2500, L300.4310, L300.3900, BTS, L100.0100 ####[facility] [address] [place], [address] Sodium [Moles/Vol] 140 mmol/L Normal 133-145 [facility] Comment on above: Performed By: #### L 500.2500, L300.4310, L300.3900, BTS, L100.0100 ####[facility] [address] [place], [address] Urea nitrogen [Mass/Vol] 16 mg/dL Normal 4-19 [facility] Comment on above: Performed By: #### L 500.2500, L300.4310, L300.3900, BTS, L100.0100 ####[facility] [address] [place], [address] Basophil percentageOrdered B y: Guerrero Valerio on 03-01-2025 Basophils/100 WBC (Bld) 0.2 % 0-[address] [facility] Brain/Head without Contrasto n 03-01-2025 Brain/Head without Contrast Normal [facility] CBC W/Diff, Automatedon 02-17 Absolute Lymph 0.63 X10 3/uL Low 0.83-4.51 [facility] Comment on above: Performed By: #### L 500.2500, L300.4310, L300.3900, BTS, L100.0100 ####[facility] [address] [place], [address] Absolute Neut 17.3 X10 3/uL High 2.0-7.7 [facility] Comment on above: Performed By: #### L 500.2500, L300.4310, L300.3900, BTS, L100.0100 ####[facility] [address] [place], [address] Basophils/100 WBC (Bld) 0.2 % Normal 0-[address] [facility] Comment on above: Performed By: #### L 500.2500, L300.4310, L300.3900, BTS, L100.0100 ####[facility] [address] [place], [address] Eosinophils/100 WBC (Bld) 0.0 % Normal 0-5 [facility] Comment on above: Performed By: #### L 500.2500, L300.4310, L300.3900, BTS, L100.0100 ####[facility] [address] [place], [address] Erythrocyte distribution width (RBC) [Ratio] 12.9 % Normal 11.6-14.6 [facility] Comment on above: Performed By: #### L 500.2500, L300.4310, L300.3900, BTS, L100.0100 ####[facility] [address] [place], [address] Hematocrit (Bld) [Volume fraction] 37.3 % Normal 37-47 [facility] Comment on above: Performed By: #### L 500.2500, L300.4310, L300.3900, BTS, L100.0100 ####[facility] [address] [place], [address] Hemoglobin (Bld) [Mass/Vol] 13.0 g/dL Normal 12.0-15.0 [facility] Comment on above: Performed By: #### L 500.2500, L300.4310, L300.3900, BTS, L100.0100 ####[facility] [address] [place], [address] IG% 0.600 Normal 0.0-0.9 [facility] Comment on above: Result Comment: IG% - Immature Granulocytes (promyelocytes, myelocytes andmetamyelocytes) > 1% indicates that a LEFT SHIFT is Present. Performed By: #### L 500.2500, L300.4310, L300.3900, BTS, L100.0100 ####[facility] [address] [place], [address] Lymphocytes/100 WBC (Bld) 3.3 % Low 19-41 [facility] Comment on above: Performed By: #### L 500.2500, L300.4310, L300.3900, BTS, L100.0100 ####[facility] [address] [place], [address] MCH (RBC) [Entitic mass] 30.4 pg Normal 27.0-32.0 [facility] Comment on above: Performed By: #### L 500.2500, L300.4310, L300.3900, BTS, L100.0100 ####[facility] [address] [place], [address] MCHC (RBC) [Mass/Vol] 34.9 g/dL Normal 32-36 [facility] Comment on above: Performed By: #### L 500.2500, L300.4310, L300.3900, BTS, L100.0100 ####[facility] [address] [place], [address] MCV (RBC) [Entitic vol] 87.1 fL Normal 81-99 [facility] Comment on above: Performed By: #### L 500.2500, L300.4310, L300.3900, BTS, L100.0100 ####[facility] [address] [place], [address] Monocytes/100 WBC (Bld) 3.8 % Normal 0-10 [facility] Comment on above: Performed By: #### L 500.2500, L300.4310, L300.3900, BTS, L100.0100 ####[facility] [address] [place], [address] Neutrophils/100 WBC (Bld) 92.1 % High 47-70 [facility] Comment on above: Performed By: #### L 500.2500, L300.4310, L300.3900, BTS, L100.0100 ####[facility] [address] [place], [address] Nucleated RBC (Bld) [#/Vol] 0 10*3/uL Normal 0-5 [facility] Comment on above: Performed By: #### L 500.2500, L300.4310, L300.3900, BTS, L100.0100 ####[facility] [address] [place], [address] Platelet mean volume (Bld) [Entitic vol] 10.3 fL Normal 6.2-12.0 [facility] Comment on above: Performed By: #### L 500.2500, L300.4310, L300.3900, BTS, L100.0100 ####[facility] [address] [place], [address] Platelets (Bld) [#/Vol] 239 10*3/uL Normal 150-450 [facility] Comment on above: Performed By: #### L 500.2500, L300.4310, L300.3900, BTS, L100.0100 ####[facility] [address] [place], [address] RBC (Bld) [#/Vol] 4.28 10*6/uL Normal 4.2-5.4 [facility] Comment on above: Performed By: #### L 500.2500, L300.4310, L300.3900, BTS, L100.0100 ####[facility] [address] [place], [address] RDW SD 40.5 fl Normal 35.1-43.9 [facility] Comment on above: Performed By: #### L 500.2500, L300.4310, L300.3900, BTS, L100.0100 ####[facility] [address] [place], [address] WBC (Bld) [#/Vol] 18.8 10*3/uL High 4.4-11.0 [facility] Comment on above: Performed By: #### L 500.2500, L300.4310, L300.3900, BTS, L100.0100 ####[facility] [address] [place], [address] Carbon dioxide, total [Moles /volume] in Central venous bloodOrdered By: Guerrero Valerio on 03-01-2025 CO2 [Moles/Vol] 25.2 mmol/L 21.0-32.0 [facility] Chest 1 View (Portable)on Chest 1 View (Portable) Normal [facility] Chloride assayOrdered By: Christophe Valerio on 03-01-2025 Chloride [Moles/Vol] 104 mmol/L 98-108 [facility] Comprehensive Metabolic Prof ilon 03-01-2025 ALB Normal 3.4-4.8 [facility] Comment on above: Result Comment: PER KAMLA IN MS3 WANTS TO CANCEL CMP. PT WILL HAVE MORNINGLABS THEN. Performed By: #### L 500.4050 ####[facility] [address] [place], [address] ALK PHOS Normal 35-104 [facility] Comment on above: Result Comment: PER KAMLA IN MS3 WANTS TO CANCEL CMP. PT WILL HAVE MORNINGLABS THEN. Performed By: #### L 500.4050 ####[facility] [address] [place], [address] ALT Normal <=34 [facility] Comment on above: Result Comment: PER KAMLA IN MS3 WANTS TO CANCEL CMP. PT WILL HAVE MORNINGLABS THEN. Performed By: #### L 500.4050 ####[facility] [address] [place], [address] AST Normal <=31 [facility] Comment on above: Result Comment: PER KAMLA IN MS3 WANTS TO CANCEL CMP. PT WILL HAVE MORNINGLABS THEN. Performed By: #### L 500.4050 ####[facility] [address] [place], [address] BUN Normal 4-19 [facility] Comment on above: Result Comment: PER KAMLA IN MS3 WANTS TO CANCEL CMP. PT WILL HAVE MORNINGLABS THEN. Performed By: #### L 500.4050 ####[facility] [address] [place], [address] BUN/CRE Normal 10-20 [facility] Comment on above: Result Comment: PER KAMLA IN MS3 WANTS TO CANCEL CMP. PT WILL HAVE MORNINGLABS THEN. Performed By: #### L 500.4050 ####[facility] [address] [place], [address] Calcium Normal 7.6-11.0 [facility] Comment on above: Result Comment: PER KAMLA IN MS3 WANTS TO CANCEL CMP. PT WILL HAVE MORNINGLABS THEN. Performed By: #### L 500.4050 ####[facility] [address] [place], [address] CL Normal 98-108 [facility] Comment on above: Result Comment: PER KAMLA IN MS3 WANTS TO CANCEL CMP. PT WILL HAVE MORNINGLABS THEN. Performed By: #### L 500.4050 ####[facility] [address] [place], [address] CO2 Normal 21.0-32.0 [facility] Comment on above: Result Comment: PER KAMLA IN MS3 WANTS TO CANCEL CMP. PT WILL HAVE MORNINGLABS THEN. Performed By: #### L 500.4050 ####[facility] [address] [place], [address] CREAT,SERUM Normal 0.70-1.20 [facility] Comment on above: Result Comment: PER KAMLA IN MS3 WANTS TO CANCEL CMP. PT WILL HAVE MORNINGLABS THEN. Performed By: #### L 500.4050 ####[facility] [address] [place], [address] eGFR Normal >60 [facility] Comment on above: Result Comment: PER KAMLA IN MS3 WANTS TO CANCEL CMP. PT WILL HAVE MORNINGLABS THEN. Performed By: #### L 500.4050 ####[facility] [address] [place], [address] GAP Normal 5-15 [facility] Comment on above: Result Comment: PER KAMLA IN MS3 WANTS TO CANCEL CMP. PT WILL HAVE MORNINGLABS THEN. Performed By: #### L 500.4050 ####[facility] [address] [place], [address] GLU Normal 70-99 [facility] Comment on above: Result Comment: PER KAMLA IN MS3 WANTS TO CANCEL CMP. PT WILL HAVE MORNINGLABS THEN. Performed By: #### L 500.4050 ####[facility] [address] [place], [address] Potassium Normal 3.3-5.1 [facility] Comment on above: Result Comment: PER KAMLA IN MS3 WANTS TO CANCEL CMP. PT WILL HAVE MORNINGLABS THEN. Performed By: #### L 500.4050 ####[facility] [address] [place], [address] T BILI Normal 0.00-1.30 [facility] Comment on above: Result Comment: PER KAMLA IN MS3 WANTS TO CANCEL CMP. PT WILL HAVE MORNINGLABS THEN. Performed By: #### L [id number] ####[facility] [id number] [place], [address] T PROT Normal 5.9-8.4 [facility] Comment on above: Result Comment: PER KAMLA IN MS3 WANTS TO CANCEL CMP. PT WILL HAVE MORNINGLABS THEN. Performed By: #### L [id number] ####[facility] [id number] [place], [address] Comprehensive Metabolic Profil Normal 133-145 [facility] Comment on above: Result Comment: PER KAMLA IN MS3 WANTS TO CANCEL CMP. PT WILL HAVE MORNINGLABS THEN. Performed By: #### L [id number] ####[facility] [id number] [place], [address] Emergency Department Summary on 03-01-2025 Emergency Department Summary Normal [facility] Eosin[facility] percentageOrdered By: Guerrero Valerio on 03-01-2025 Eosinophils/100 WBC (Bld) 0.0 % 0-5 [facility] Erythrocyte distribution wid th (RBC) [Ratio]Ordered By: Guerrero Valerio on 03-01-2025 Erythrocyte distribution width (RBC) [Entitic vol] 40.5 fL 35.1-43.9 [facility] Erythrocyte distribution wid th ratioOrdered By: Guerrero Valerio on 03-01-2025 Erythrocyte distribution width (RBC) [Ratio] 12.9 % 11.6-14.6 [facility] Estimation of creatinine winston aranceOrdered By: Guerrero Valerio on 03-01-2025 Estimated Creatinine Clearance Calc 37.62 ml/min Low 50-250 [facility] Extremity Lower without Cont raon 03-01-2025 Extremity Lower without Contra Normal [facility] GFR/1.73 sq M.predicted arti g non-blacks MDRD (S/P/Bld) [Vol rate/Area]Ordered By: Guerrero Valerio on 03-01-2025 Estimated GFR (MDRD) Non-Af Amer 63 >60 [facility] Comment on above: mL/min/1.73m2 CKD-EP I Creatinine Equation (2020) H AND P Exam - [place] 03-01-2025 H&P Exam - Hospitalist Normal [facility] HIP, UNI W/ Pelvis 2-3 Views on 03-01-2025 HIP, UNI W/ Pelvis 2-3 Views Normal [facility] Hematocrit Auto (Bld) [Volum e fraction]Ordered By: Guerrero Valerio on 03-01-2025 Hematocrit (Bld) [Volume fraction] 37.3 % 37-47 [facility] Hemoglobin measurementOrdere d By: Guerrero Valerio on 03-01-2025 Hemoglobin (Bld) [Mass/Vol] 13.0 g/dL 12.0-15.0 [facility] Immature granulocytes/100 WB C Auto (Bld)Ordered By: Guerrero Valerio on 03-01-2025 Immature granulocytes/100 WBC (Bld) 0.600 % 0.0-0.9 [facility] Comment on above: IG% - Immature Granu locytes (promyelocytes, myelocytes and metamyelocytes) > 1% indicates that a LEFT SHIFT is Present. International normalized rat io (INR) calculationOrdered By: Guerrero Valerio on 03-01-2025 INR Coag (Bld) [Relative time] 1.1 {INR} [facility] Knee 1 or 2 Viewson 03-01-20 25 Knee 1 or 2 Views Normal [facility] Lymphocytes Auto (Unsp spec) [#/Vol]Ordered By: Guerrero Valerio on 03-01-2025 Lymphocytes (Bld) [#/Vol] 0.63 10*3/uL Low 0.83-4.51 [facility] Lymphocytes/100 WBC Auto (Un sp spec)Ordered By: Guerrero Valerio on 03-01-2025 Lymphocytes/100 WBC (Bld) 3.3 % Low 19-41 [facility] MCV (mean corpuscular volume ) determinationOrdered By: Guerrero Valerio on 03-01-2025 MCV (RBC) [Entitic vol] 87.1 fL 81-99 [facility] Mean corpuscular hemoglobin (MCH) determinationOrdered By: Guerrero Valerio on 03-01-2025 MCH (RBC) [Entitic mass] 30.4 pg 27.0-32.0 [facility] Mean corpuscular hemoglobin concentration (MCHC) determinationOrdered By: Guerrero Valerio on 03-01-2025 MCHC (RBC) [Mass/Vol] 34.9 g/dL 32-36 [facility] Mean platelet volume determi nationOrdered By: Guerrero Valerio on 03-01-2025 Platelet mean volume (Bld) [Entitic vol] 10.3 fL 6.2-12.0 [facility] Monocyte percentageOrdered B y: Guerrero Valerio on 03-01-2025 Monocytes/100 WBC (Bld) 3.8 % 0-[address] [facility] Neutrophil percentageOrdered By: Guerrero Valerio on 03-01-2025 Neutrophils/100 WBC (Bld) 92.1 % High 47-70 [facility] Nucleated red blood cell per centageOrdered By: Guerrero Valerio on 03-01-2025 Nucleated RBC/100 WBC (Bld) [Ratio] 0 % 0-5 [facility] Partial Thromboplast Timeon 03-01-2025 aPTT Coag (Bld) [Time] 25.8 s Normal 24.1-36.2 [facility] Comment on above: Performed By: #### L 500.2500, L300.4310, L300.3900, BTS, L100.0100 ####[facility] [address] [place], [address] Platelet countOrdered By: Christophe Valerio on 03-01-2025 Platelets (Bld) [#/Vol] 239 10*3/uL 150-450 [facility] Potassium (Unsp spec) [Mass/ Vol]Ordered By: Guerrero Valerio on 03-01-2025 Potassium [Moles/Vol] 4.2 mmol/L 3.3-5.1 [facility] Prothrombin Time w/INRon INR Coag (PPP) [Relative time] 1.1 {INR} Normal [facility] Comment on above: Performed By: #### L 500.2500, L300.4310, L300.3900, BTS, L100.0100 ####[facility] [address] [place], [address] PT Coag (PPP) [Time] 14.9 s Normal 11.7-14.9 [facility] Comment on above: Performed By: #### L 500.2500, L300.4310, L300.3900, BTS, L100.0100 ####[facility] [address] [place], [address] Prothrombin timeOrdered By: Guerrero Valerio on 03-01-2025 PT Coag (PPP) [Time] 14.9 s 11.7-14.9 [facility] RBC Auto (Bld) [#/Vol]Ordere d By: Guerrero Valerio on 03-01-2025 RBC (Bld) [#/Vol] 4.28 10*6/uL 4.2-5.4 [facility] Serum creatinine measurement (mass/volume)Ordered By: Guerrero Valerio on 03-01-2025 Creatinine [Mass/Vol] 0.90 mg/dL 0.70-1.20 [facility] Serum glucose measurement (m ass/volume)Ordered By: Guerrero Valerio on 03-01-2025 Glucose [Mass/Vol] 148 mg/dL High 70-99 [facility] Serum or plasma calcium thomas urement (mass/volume)Ordered By: Guerrero Valerio on 03-01-2025 Calcium [Mass/Vol] 9.2 mg/dL 7.6-11.0 [facility] Serum or plasma urea nitroge n measurement (mass/volume)Ordered By: Guerrero Valerio on 03-01-2025 Urea nitrogen [Mass/Vol] 16 mg/dL 4-19 [facility] Sodium levelOrdered By: Liborio Valerio on 03-01-2025 Sodium [Moles/Vol] 140 mmol/L 133-145 [facility] Type AND Screenon 03-01-2025 Ab SCREEN GEL Negative Normal [facility] Comment on above: Order Comment: S Performed By: #### L 500.2500, L300.4310, L300.3900, BTS, L100.0100 ####[facility] [address] [place], [address] Vitamin D, 25-hydroxyOrdered By: Roro Long on 03-01-2025 Vitamin D 25-Hydroxy 29.9 ng/mL Low 30-100 [facility] Comment on above: Vitamin D StatusDefi ciency: <20 ng/mL (50nmol/L)Insufficiency: 20-30 ng/mL (50-75 nmol/L)Sufficiency: 30-100 ng/mL (75-250 nmol/L)Toxicity: >100 ng/mL (>250 nmol/L) Vitamin D,25 Hydroxyon 03-01 Vitamin D 25-OH 29.9 ng/mL Low 30-100 [facility] Comment on above: Result Comment: Vaishnavi min D StatusDeficiency: <20 ng/mL (50nmol/L)Insufficiency: 20-30 ng/mL (50-75 nmol/L)Sufficiency: 30-100 ng/mL (75-250 nmol/L)Toxicity: >100 ng/mL (>250 nmol/L) Performed By: #### L 506.1001 ####[facility] [address] [place], [address] White blood cell (WBC) count Ordered By: Guerrero Teodoro on 03-01-2025 WBC (Bld) [#/Vol] 18.8 10*3/uL High 4.4-11.0 [facility] aPTT Coag (PPP) [Time]Ordere d By: Guerrero Valerio on 03-01-2025 aPTT Coag (Bld) [Time] 25.8 s 24.1-36.2 [facility] CNPNon 02-27-2025 CNPN Telephone (ZOEYWST) MICHAELA BRANDT ([id number]) 1940 F Date Time Provider Department 02/27/25 KENTRELL MONTGOMERY During your visit today, we recorded the following information about you: Kentrell Montgomery MSW 02/27/2025 2:27 PM Signed Janna left message for patient requesting call back to discuss patient home care resource needs. Kentrell Montgomery MSW 02/27/2025 2:53 PM Signed Janna spoke with patient daughter Maribeth. Maribeth noted that her mother is currently living on [address] Stahl is concerned about mother living by herself. There are cameras set up in [facility] [place] to keep watch on patient in case of falls. Discussed different social service agencies and services they offer ie. [facility] and Lala Allison. Janna provided patient daughter with Lala Huntley phone number for help with looking at memory care options in the area. Janna and daughter also discussed different local memory care options ie. [place], [place], [facility], [facility]. Maribeth notes that her mom was not interested in any place that looks like a halfway. Discussed the different options above and layout and levels of care they offer. Maribeth notes that she is going to give Yuko a call from [facility] to see about her assistance as a intermediate advisor looking at level of care memory [...] Status:Closed by KENTRELL MONTGOMERY on 03/02/25 Normal [facility] Bacteria Ur Culton Bacteria identified Cx [...] , Intermediate >32 , Resistant >64 Abnormal [facility] Comment on above: Performed By: #### 6 30-4 ####[facility] [id number] [address] STATES OF [facility] Harris 02-19-2025 CNOV Office Visit (UCWSTR ) MICHAELA BRANDT ([id number]) 1940 F Date Time Provider Department 02/19/25 11:30 AM [place] [facility] During your visit today, we recorded the following information about you: Temperature Pulse Respiration Blood pressure 98.7 degrees 70/minute 22/minute 145/79 Weight 57 kg Walt Robles APRN.OCEAN EXPORT COORDINATOR 02/19/2025 12:00 PM Signed [facility] [...] history is provided by the patient. No bath attendant was used. Review of Systems Constitutional: Negative. [...] be changed please change accordingly. Walt Robles APRN.OCEAN EXPORT COORDINATOR MDM Procedures Allergies As of Date: 02/19/2025 (No Known Allergies) Date Reviewed: 02/19/2025 Reviewed by: Carolina Hastings LPN - Fully Assessed Reason for Visit: Urinary Problem [252] Cmt: Brain fog, 1 day Primary Visit Diagnosis:Recurrent UTI (urinary tract infection) [N39.0] Order(s):UA DIP, URINE (POC) [3942000] Order #: [id number]. #:[id number] cephALEXin (KEFLEX) 500 mg capsuleTake 1 capsule [...] 0.5 mg (more content not included)... [facility] Tele[facility] ([facility]) MICHAELA BRANDT ([id number]) 1940 F Date Time Provider Department 02/19/25 [place] [facility] During your visit today, we recorded the following information about you: Walt Robles APRN.[facility] 02/19/2025 3:04 PM Signed Please call patient [...] [R35.0] Order(s):BACTERIAL CULTURE, URINE [SQURCUL] Order #: [id number] Prescriptions as of 02/19/2025 - cephALEXin (KEFLEX) [...] Status:Closed by COLTEN GREER on 02/19/25 Normal [facility] UA DIP, URINE (POC)on 2024 BILIRUBIN UA (POCT) Negative Negative [facility] CLARITY UA (POCT) Clear [facility] COLOR UA (POCT) Dark yellow [facility] GLUCOSE UA (POCT) Negative Negative mg/dL [facility] Hemoglobin Ql (U) Trace-intact Abnormal Negative [facility] Interpretation and review of laboratory results Abnormal [facility] KETONE UA (POCT) Negative Negative mg/dL [facility] LEUKOCYTES UA (POCT) Trace Abnormal Negative [facility] NITRITE UA (POCT) Positive Abnormal Negative [facility] PH UA (POCT) 5.5 4.5 - 8.0 [facility] Protein Ql (U) Negative Negative mg/dL [facility] SPECIFIC GRAVITY UA (POCT) 1.025 1.005 - 1.030 [facility] UROBILINOGEN UA (POCT) 1 Supriya l E.U./dL [facility] Location:[facility], [address] [place] [address], [place], [address] [facility] POINT OF CARE [facility] CNOVon 02-18-2025 CNOV Office Visit (INTMWS ) MICHAELA BRANDT ([id number]) 1940 F Date Time Provider Department 02/18/25 10:20 AM MARIPOSA SALINAS During your visit today, we recorded the following information about you: Pulse Respiration Blood pressure Weight 74/minute 16/minute 122/80 57.6 kg Mariposa Salinas APRN.OCEAN EXPORT COORDINATOR 02/18/2025 4:19 PM Signed CC: Patient presents [...] Patient agreeable to treatment plan. Mariposa Salinas APRN.OCEAN EXPORT COORDINATOR Medical Decision Making: Problems: Minimal: Self-limited or [...] of rig (more content not included)... Normal [facility] TSH SerPl-aCncon 02-17-2025 TSH Qn 1.190 m[IU]/L Normal 0.270-4.200 [facility] Comment on above: Order Comment: Speci men Type: BLOOD SPECIMENOrdering Facility: [facility] Address: [address] [place] [address] Performed By: #### 3 016-3 ####[facility] [id number] [address] OF [facility] CNOVon 02-04-2025 CNOV Office Visit (ELISAIWR ) MICHAELA BRANDT ([id number]) 1940 F Date Time Provider Department 02/04/25 [...] NECK: Suppl (more content not included)... Normal [facility] MR Brain WO contraston 01-24 * * *Final Report* * * DATE OF EXAM: Jan 24 2025 2:05PM [facility]015 - MRI BRAIN W QUANT WO IVCON / PROCEDURE REASON: Cognitive impairment, mild, so stated * * * * Physician Interpretation * * * * EXAMINATION: MRI 3D BRAIN QUANT, MRI BRAIN W QUANT WO IVCON CLINICAL HISTORY: TECHNIQUE: Axial ISREAL FLAIR, ISREAL T2, diffusion and susceptibility weighted imaging without contrast, using the ADNI dementia protocol and 3-D post-processing using the PassportParking software at an independent workstation with concurrent [...] to 1.7; Will 2008; also Balbir 2010). [facility] RAD[facility] Provider, [facility] - 01/24/2025 * * *Final Report* * * DATE OF EXAM: Jan 24 2025 2:05PM [facility]015 - MRI BRAIN W QUANT WO IVCON / PROCEDURE REASON: Cognitive impairment, mild, so stated * * * * Physician Interpretation * * * * EXAMINATION: MRI 3D BRAIN QUANT, MRI BRAIN W QUANT WO IVCON CLINICAL HISTORY: TECHNIQUE: Axial ISREAL FLAIR, ISREAL T2, diffusion and susceptibility weighted imaging without contrast, using the ADNI dementia protocol and 3-D post-processing using the [employer]portParking software at an independent workstation with concurrent [...] = Focal Lesions 2 = Beginning of [place] 3 = Diffuse Involvement of Entire Region [...] 100] (%). Age-matched (more content not included)... [facility] MR Unspecified body region 3 D post processingon 01-24-2025 * * *Final Report* * * DATE OF EXAM: Jan 24 2025 2:05PM [facility] 7867 - MRI 3D BRAIN QUANT / PROCEDURE REASON: Cognitive impairment, mild, so stated * * * * Physician Interpretation * * * * EXAMINATION: MRI 3D BRAIN QUANT, MRI BRAIN W QUANT WO IVCON CLINICAL HISTORY: TECHNIQUE: Axial ISREAL FLAIR, ISREAL T2, diffusion and susceptibility weighted imaging without contrast, using the ADNI dementia protocol and 3-D post-processing using the [employer]portParking software at an independent workstation with concurrent [...] to 1.7; Will 2008; also Balbir 2010). [facility] * * *Final Report* * * DATE OF EXAM: Jan 24 2025 2:05PM [facility] 7867 - MRI 3D BRAIN QUANT / [...] = Focal Lesions 2 = Beginning of [place] 3 = Diffuse Involvement of Entire Region [...] (%). Age-matched referenc (more content not included)... [facility] MRI 3D BRAIN QUANTon 025 MRI 3D BRAIN QUANT * * *Final Report* * * DATE OF EXAM: Jan 24 2025 2:05PM [facility] 7867 - MRI 3D BRAIN QUANT / PROCEDURE REASON: Cognitive impairment, mild, so stated * * * * Physician Interpretation * * * * EXAMINATION: MRI 3D BRAIN QUANT, MRI BRAIN W QUANT WO IVCON CLINICAL HISTORY: TECHNIQUE: Axial ISREAL FLAIR, ISREAL T2, diffusion and susceptibility weighted imaging without contrast, using the ADNI dementia protocol and 3-D post-processing using the PassportParking software at an independent workstation with concurrent [...] = Focal Lesions 2 = Beginning of [place] 3 = Diffuse Involvement of Entire Region [...] results from the analysis charts for details. Crew Leader/Control Room Operator: MINDY Transcribe Date/Time: Jan 24 (more content not included)... Normal [facility] MRI BRAIN W QUANT WO IVCONon 01-24-2025 MRI BRAIN W QUANT WO IVCON * * *Final Report* * * DATE OF EXAM: Jan 24 2025 2:05PM [facility]015 - MRI BRAIN W QUANT WO IVCON / PROCEDURE REASON: Cognitive impairment, mild, so stated * * * * Physician Interpretation * * * * EXAMINATION: MRI 3D BRAIN QUANT, MRI BRAIN W QUANT WO IVCON CLINICAL HISTORY: TECHNIQUE: Axial ISREAL FLAIR, ISREAL T2, diffusion and susceptibility weighted imaging without contrast, using the ADNI dementia protocol and 3-D post-processing using the [employer]portParking software at an independent workstation with concurrent [...] = Focal Lesions 2 = Beginning of [place] 3 = Diffuse Involvement of Entire Region [...] results from the analysis charts for details. Crew Leader/Control Room Operator: MINDY Transcribe Date/Time (more content not included)... [facility] No Panel Informationon 01-24 IMPRESSION: [...] = Focal Lesions 2 = Beginning of [place] 3 = Diffuse Involvement of Entire Region [...] results from the analysis charts for details. Crew Leader/Control Room Operator: MINDY Transcribe Date/Time: Jan 24 2025 2:14P Dictated by : PUJA KIM MD This examination was interpreted and the report reviewed and electronically signed by: PUJA KIM MD on Jan 24 2025 2:29PM [facility] RADIOLOG[facility] Radiology Study observation (narrative) [place] [facility] No Panel InformationOrdered By: [facility] Provider on 01-24-2025 [facility] Urine Cultureon 01-19-2025 [facility] Normal [facility] Comment on above: Performed By: #### M 100.2200 ####[facility] [address] [place], [address] Absolute lymphocyte countOrd ered By: Dominik Galvan on 01-17-2025 Lymphocytes Auto (Unsp spec) [#/Vol] 1.42 10*3/uL 0.83-4.51 [facility] Absolute neutrophil countOrd ered By: Dominik Galvan on 01-17-2025 Neutrophils (Bld) [#/Vol] 10.3 10*3/uL High 2.0-7.7 [facility] Amorphous sediment detection in urine sediment by light microscopyOrdered By: Dominik Galvan on 01-17-2025 Amorphous sediment LM Ql (Urine sed) 1+ URATE [facility] Automated lymphocyte count a s percentage of total leukocytesOrdered By: Dominik Galvan on 01-17-2025 Lymphocytes/100 WBC Auto (Unsp spec) 11.0 % Low 19-41 [facility] BUN/creatinine ratioOrdered By: Dominik Galvan on 01-17-2025 Urea nitrogen/Creatinine [Mass ratio] 20.5 mg/mg High 10-20 [facility] Basophil percentageOrdered B y: Dominik Galvan on 01-17-2025 Basophils/100 WBC (Bld) 0.4 % 0-[address] [facility] Bilirubin Test strip Ql (U)O rdered By: Dominik Galvan on 01-17-2025 Bilirubin Ql (U) Negative Negative [facility] Bilirubin, totalOrdered By: Dominik Galvan on 01-17-2025 Bilirubin [Mass/Vol] 1.24 mg/dL 0.00-1.30 [facility] Brain/Head without Contrasto n 01-17-2025 Brain/Head without Contrast Normal [facility] CBC W/Diff, Automatedon 03- Absolute Lymph 1.42 X10 3/uL Normal 0.83-4.51 [facility] Comment on above: Performed By: #### L 100.0100, L500.4050 ####[facility] [address] [place], [address] Absolute Neut 10.3 X10 3/uL High 2.0-7.7 [facility] Comment on above: Performed By: #### L 100.0100, L500.4050 ####[facility] [address] [place], [address] Basophils/100 WBC (Bld) 0.4 % Normal 0-[address] [facility] Comment on above: Performed By: #### L 100.0100, L500.4050 ####[facility] [address] [place], [address] Eosinophils/100 WBC (Bld) 1.0 % Normal 0-5 [facility] Comment on above: Performed By: #### L 100.0100, L500.4050 ####[facility] [address] [place], [address] Erythrocyte distribution width (RBC) [Ratio] 13.3 % Normal 11.6-14.6 [facility] Comment on above: Performed By: #### L 100.0100, L500.4050 ####[facility] [address] [place], [address] Hematocrit (Bld) [Volume fraction] 35.9 % Low 37-47 [facility] Comment on above: Performed By: #### L 100.0100, L500.4050 ####[facility] [address] [place], [address] Hemoglobin (Bld) [Mass/Vol] 12.3 g/dL Normal 12.0-15.0 [facility] Comment on above: Performed By: #### L 100.0100, L500.4050 ####[facility] [address] [place], [address] IG% 0.400 Normal 0.0-0.9 [facility] Comment on above: Result Comment: IG% - Immature Granulocytes (promyelocytes, myelocytes andmetamyelocytes) > 1% indicates that a LEFT SHIFT is Present. Performed By: #### L 100.0100, L500.4050 ####[facility] [address] [place], [address] Lymphocytes/100 WBC (Bld) 11.0 % Low 19-41 [facility] Comment on above: Performed By: #### L 100.0100, L500.4050 ####[facility] [address] [place], [address] MCH (RBC) [Entitic mass] 29.9 pg Normal 27.0-32.0 [facility] Comment on above: Performed By: #### L 100.0100, L500.4050 ####[facility] [address] [place], [address] MCHC (RBC) [Mass/Vol] 34.3 g/dL Normal 32-36 [facility] Comment on above: Performed By: #### L 100.0100, L500.4050 ####[facility] [address] [place], [address] MCV (RBC) [Entitic vol] 87.3 fL Normal 81-[address] [facility] Comment on above: Performed By: #### L 100.0100, L500.4050 ####[facility] [address] [place], [address] Monocytes/100 WBC (Bld) 8.1 % Normal 0-[address] [facility] Comment on above: Performed By: #### L 100.0100, L500.4050 ####[facility] [address] [place], [address] Neutrophils/100 WBC (Bld) 79.1 % High 47-70 [facility] Comment on above: Performed By: #### L 100.0100, L500.4050 ####[facility] [address] [place], [address] Nucleated RBC (Bld) [#/Vol] 0 10*3/uL Normal 0-5 [facility] Comment on above: Performed By: #### L 100.0100, L500.4050 ####[facility] [address] [place], [address] Platelet mean volume (Bld) [Entitic vol] 10.5 fL Normal 6.2-12.0 [facility] Comment on above: Performed By: #### L 100.0100, L500.4050 ####[facility] [address] [place], [address] Platelets (Bld) [#/Vol] 169 10*3/uL Normal 150-450 [facility] Comment on above: Performed By: #### L 100.0100, L500.4050 ####[facility] [address] [place], [address] RBC (Bld) [#/Vol] 4.11 10*6/uL Low 4.2-5.4 [facility] Comment on above: Performed By: #### L 100.0100, L500.4050 ####[facility] [address] [place], [address] RDW SD 42.1 fl Normal 35.1-43.9 [facility] Comment on above: Performed By: #### L 100.0100, L500.4050 ####[facility] [address] [place], [address] WBC (Bld) [#/Vol] 13.0 10*3/uL High 4.4-11.0 [facility] Comment on above: Performed By: #### L 100.0100, L500.4050 ####[facility] [address] [place], [address] Carbon dioxide measurementOr dered By: Dominik Galvan on 01-17-2025 CO2 [Moles/Vol] 25.5 mmol/L 22.0-29.0 [facility] Chloride measurementOrdered By: Dominik Galvan on 01-17-2025 Chloride [Moles/Vol] 103 mmol/L 96-108 [facility] Comprehensive Metabolic Prof ilon 01-17-2025 Albumin [Mass/Vol] 4.2 g/dL Normal 3.4-4.8 [facility] Comment on above: Performed By: #### L 100.0100, L500.4050 ####[facility] [address] [place], [address] Albumin/Globulin [Mass ratio] 1.4 {ratio} Normal 0.9-2.4 [facility] Comment on above: Performed By: #### L 100.0100, L500.4050 ####[facility] [address] [place], [address] ALK PHOS 75 U/L Normal 35-104 [facility] Comment on above: Performed By: #### L 100.0100, L500.4050 ####[facility] [address] [place], [address] ALT [Catalytic activity/Vol] 9 U/L Normal <=34 [facility] Comment on above: Performed By: #### L 100.0100, L500.4050 ####[facility] [address] [place], [address] Anion gap [Moles/Vol] 12 mmol/L Normal 5-15 [facility] Comment on above: Performed By: #### L 100.0100, L500.4050 ####[facility] [address] [place], [address] AST [Catalytic activity/Vol] 19 U/L Normal <=31 [facility] Comment on above: Performed By: #### L 100.0100, L500.4050 ####[facility] [address] [place], [address] Bilirubin [Mass/Vol] 1.24 mg/dL Normal 0.00-1.30 [facility] Comment on above: Performed By: #### L 100.0100, L500.4050 ####[facility] [address] [place], [address] BUN/CRE 20.5 RATIO High 10-20 [facility] Comment on above: Performed By: #### L 100.0100, L500.4050 ####[facility] [address] [place], [address] Calcium [Mass/Vol] 9.7 mg/dL Normal 7.6-11.0 [facility] Comment on above: Performed By: #### L 100.0100, L500.4050 ####[facility] [address] [place], [address] Chloride [Moles/Vol] 103 mmol/L Normal 96-108 [facility] Comment on above: Performed By: #### L 100.0100, L500.4050 ####[facility] [address] [place], [address] CO2 [Moles/Vol] 25.5 mmol/L Normal 22.0-29.0 [facility] Comment on above: Performed By: #### L 100.0100, L500.4050 ####[facility] [address] [place], [address] Creatinine [Mass/Vol] 0.92 mg/dL Normal 0.70-1.20 [facility] Comment on above: Performed By: #### L 100.0100, L500.4050 ####[facility] [address] [place], [address] GFR/1.73 sq M.predicted among non-blacks MDRD (S/P/Bld) [Vol rate/Area] 61 mL/min/{1.73_m2} Normal >60 [facility] Comment on above: Result Comment: mL/m in/1.73m2 CKD-EPI Creatinine Equation (2020) Performed By: #### L 100.0100, L500.4050 ####[facility] [address] [place], [address] Globulin (S) [Mass/Vol] 3.0 g/dL Normal 2.2-4.2 [facility] Comment on above: Performed By: #### L 100.0100, L500.4050 ####[facility] [address] [place], [address] Glucose [Mass/Vol] 113 mg/dL High 70-99 [facility] Comment on above: Performed By: #### L 100.0100, L500.4050 ####[facility] [address] [place], [address] Potassium [Moles/Vol] 3.9 mmol/L Normal 3.3-5.1 [facility] Comment on above: Performed By: #### L 100.0100, L500.4050 ####[facility] [address] [place], [address] Sodium [Moles/Vol] 140 mmol/L Normal 133-145 [facility] Comment on above: Performed By: #### L 100.0100, L500.4050 ####[facility] [address] [place], [address] T PROT 7.2 g/dL Normal 5.9-8.4 [facility] Comment on above: Performed By: #### L 100.0100, L500.4050 ####[facility] [address] [place], [address] Urea nitrogen [Mass/Vol] 19 mg/dL Normal 4-19 [facility] Comment on above: Performed By: #### L 100.0100, L500.4050 ####[facility] [address] [place], [address] Emergency Department Summary on 01-17-2025 Emergency Department Summary Normal [facility] Eosinophil percentageOrdered By: Dominik Galvan on 01-17-2025 Eosinophils/100 WBC (Bld) 1.0 % 0-5 [facility] Epithelial cells.squamous LM Ql (Urine sed)Ordered By: Dominik Galvan on 01-17-2025 Epithelial cells.squamous LM.HPF (Urine sed) [#/Area] 0 /[HPF] 5-10 [facility] Erythrocyte distribution wid th (RBC) [Ratio]Ordered By: Dominik Galvan on 01-17-2025 Erythrocyte distribution width (RBC) [Entitic vol] 42.1 fL 35.1-43.9 [facility] Erythrocyte distribution wid th ratioOrdered By: Dominik Galvan on 01-17-2025 Erythrocyte distribution width (RBC) [Ratio] 13.3 % 11.6-14.6 [facility] Erythrocyte distribution wid th standard deviationOrdered By: Dominik Galvan on 01-17-2025 Erythrocyte distribution width (RBC) [Ratio] 42.1 fl 35.1-43.9 [facility] GFR/1.73 sq M.predicted arti g non-blacks MDRD (S/P/Bld) [Vol rate/Area]Ordered By: Dominik Galvan on 01-17-2025 Estimated GFR (MDRD) Non-Af Amer 61 >60 [facility] Comment on above: mL/min/1.73m2 CKD-EP I Creatinine Equation (2020) Glomerular filtration rate ( GFR) estimation/1.73 sq m using serum, plasma, or whole bOrdered By: Dominik Galvan on 01-17-2025 GFR/1.73 sq M.predicted among non-blacks MDRD (S/P/Bld) [Vol rate/Area] 61 mL/min/{1.73_m2} >60 [facility] Comment on above: mL/min/1.73m2 CKD-EP I Creatinine Equation (2020) Glucose Ql (U)Ordered By: Octavio Galvan on 01-17-2025 Urine Glucose (UA) Normal mg/dl Normal [facility] Hematocrit Auto (Bld) [Volum e fraction]Ordered By: Dominik Galvan on 01-17-2025 Hematocrit (Bld) [Volume fraction] 35.9 % Low 37-47 [facility] Hemoglobin measurementOrdere d By: Dominik Galvan on 01-17-2025 Hemoglobin (Bld) [Mass/Vol] 12.3 g/dL 12.0-15.0 [facility] Immature granulocytes/100 WB C Auto (Bld)Ordered By: Dominik Galvan on 01-17-2025 Immature granulocytes/100 WBC (Bld) 0.400 % 0.0-0.9 [facility] Comment on above: IG% - Immature Granu locytes (promyelocytes, myelocytes and metamyelocytes) > 1% indicates that a LEFT SHIFT is Present. Influenza virus A and B and SARS-CoV-2 (COVID-19) and Respiratory syncytial virus RNAOrdered By: Dominik Galvan on 01-17-2025 SARS-CoV-2 (COVID-19) RNA DANIEL+probe Ql (Unsp spec) [facility] Ketones Test strip Ql (U)Ord ered By: Dominik Galvan on 01-17-2025 Ketones Ql (U) Negative Negative [facility] Laboratory - Chemistry and C hemistry - challengeOrdered By: Dominik Galvan on 01-17-2025 AST [Catalytic activity/Vol] 19 U/L <32 [facility] Lymphocytes Auto (Unsp spec) [#/Vol]Ordered By: Dominik Galvan on 01-17-2025 Lymphocytes (Bld) [#/Vol] 1.42 10*3/uL 0.83-4.51 [facility] Lymphocytes/100 WBC Auto (Un sp spec)Ordered By: Dominik Galvan on 01-17-2025 Lymphocytes/100 WBC (Bld) 11.0 % Low 19-41 [facility] M100.678on 01-17-2025 M100.678 Pending SARS-CoV-2 (COVID 19) Negative INFLUENZA A Negative INFLUENZA B Negative RSV PCR Negative Normal [facility] Comment on above: Performed By: #### M 100.678, L400.0001 ####[facility] [address] [place], [address] MCV (mean corpuscular volume ) determinationOrdered By: Dominik Galvan on 01-17-2025 MCV (RBC) [Entitic vol] 87.3 fL 81-[address] [facility] Mean corpuscular hemoglobin (MCH) determinationOrdered By: Dominik Galvan on 01-17-2025 MCH (RBC) [Entitic mass] 29.9 pg 27.0-32.0 [facility] Mean corpuscular hemoglobin concentration (MCHC) determinationOrdered By: Dominik Galvan on 01-17-2025 MCHC (RBC) [Mass/Vol] 34.3 g/dL 32-36 [facility] Mean platelet volume determi nationOrdered By: Dominik Galvan on 01-17-2025 Platelet mean volume (Bld) [Entitic vol] 10.5 fL 6.2-12.0 [facility] Microscopic analysis of urin e for red blood cells (RBC)Ordered By: Dominik Galvan on 01-17-2025 Microscopic analysis of urine for red blood cells (RBC) 0-5 SEEN /hpf 0-5 [facility] Urine RBC 0-5 SEEN /hpf 0-5 [facility] Monocyte percentageOrdered B y: Dominik Galvan on 01-17-2025 Monocytes/100 WBC (Bld) 8.1 % 0-[address] [facility] Mucus LM Ql (Urine sed)Order ed By: Dominik Galvan on 01-17-2025 Mucus Ql (Urine sed) 0 SEEN /hpf [facility] Neutrophil percentageOrdered By: Dominik Galvan on 01-17-2025 Neutrophils/100 WBC (Bld) 79.1 % High 47-70 [facility] Nitrite Test strip Ql (U)Ord ered By: Dominik Galvan on 01-17-2025 Nitrite Ql (U) Positive High Negative [facility] Nucleated red blood cell per centageOrdered By: Dominik Galvan on 01-17-2025 Nucleated RBC/100 WBC (Bld) [Ratio] 0 % 0-5 [facility] Platelet countOrdered By: Octavio Galvan on 01-17-2025 Platelets (Bld) [#/Vol] 169 10*3/uL 150-450 [facility] Protein Test strip Ql (U)Ord ered By: Dominik Galvan on 01-17-2025 Protein Ql (U) Negative Negative [facility] RBC Auto (Bld) [#/Vol]Ordere d By: Dominik Galvan on 01-17-2025 RBC (Bld) [#/Vol] 4.11 10*6/uL Low 4.2-5.4 [facility] Serum creatinine measurement (mass/volume)Ordered By: Dominik Galvan on 01-17-2025 Creatinine [Mass/Vol] 0.92 mg/dL 0.70-1.20 [facility] Serum globulin measurementOr dered By: Dominik Galvan on 01-17-2025 Globulin (S) [Mass/Vol] 3.0 g/dL 2.2-4.[address] [facility] Serum glucose measurement (m ass/volume)Ordered By: Dominik Galvan on 01-17-2025 Glucose [Mass/Vol] 113 mg/dL High 70-99 [facility] Serum or plasma alanine tillman otransferase (ALT) measurementOrdered By: Dominik Galvan on 01-17-2025 ALT [Catalytic activity/Vol] 9 U/L <35 [facility] Serum or plasma albumin thomas urement (mass/volume)Ordered By: Dominik Galvan on 01-17-2025 Albumin [Mass/Vol] 4.2 g/dL 3.4-4.8 [facility] Serum or plasma albumin/glob ulin mass ratioOrdered By: Dominik Galvan on 01-17-2025 Albumin/Globulin [Mass ratio] 1.4 {ratio} 0.9-2.4 [facility] Serum or plasma alkaline mariah sphatase measurementOrdered By: Dominik Galvan on 01-17-2025 ALP [Catalytic activity/Vol] 75 U/L 35-104 [facility] Serum or plasma anion gap de termination (moles/volume)Ordered By: Dominik Galvan on 01-17-2025 Anion gap [Moles/Vol] 12 mmol/L 5-15 [facility] Serum or plasma calcium thomas urement (mass/volume)Ordered By: Dominik Galvan on 01-17-2025 Calcium [Mass/Vol] 9.7 mg/dL 7.6-11.0 [facility] Serum or plasma potassium me asurementOrdered By: Dominik Galvan on 01-17-2025 Potassium [Moles/Vol] 3.9 mmol/L 3.3-5.1 [facility] Serum or plasma sodium measu rement (moles/volume)Ordered By: Dominik Galvan on 01-17-2025 Sodium [Moles/Vol] 140 mmol/L 133-145 [facility] Serum or plasma urea nitroge n measurement (mass/volume)Ordered By: Dominik Galvan on 01-17-2025 Urea nitrogen [Mass/Vol] 19 mg/dL 4-19 [facility] Squamous epithelial cells de tection in urine sediment by light microscopyOrdered By: Dominik Galvan on 01-17-2025 Epithelial cells.squamous LM Ql (Urine sed) 0-5 SEEN /hpf 5-10 [facility] Total proteinOrdered By: Shanna Galvan on 01-17-2025 Protein [Mass/Vol] 7.2 g/dL 5.9-8.4 [facility] Urinalysis, Completeon 01-17 AMORPHOUS 1+ URATE Normal [facility] Comment on above: Order Comment: SHAKA TER SPECIMEN Performed By: #### M 100.678, L400.0001 ####[facility] [address] [place], [address] BACTERIA 3+ /hpf Normal None Seen [facility] Comment on above: Order Comment: SHAKA TER SPECIMEN Performed By: #### M 100.678, L400.0001 ####[facility] [address] [place], [address] EPI,SQUAMOUS 0-5 SEEN Normal 5-10 [facility] Comment on above: Order Comment: SHAKA TER SPECIMEN Performed By: #### M 100.678, L400.0001 ####[facility] [address] [place], [address] RBC 0-5 SEEN Normal 0-5 [facility] Comment on above: Order Comment: SHAKA TER SPECIMEN Performed By: #### M 100.678, L400.0001 ####[facility] [address] [place], [address] WBC 0-5 SEEN Normal 0-5 [facility] Comment on above: Order Comment: SHAKA TER SPECIMEN Performed By: #### M 100.678, L400.0001 ####[facility] [address] [place], [address] Mucus Ql (Urine sed) 0 SEEN Normal [facility] Comment on above: Order Comment: SHAKA TER SPECIMEN Performed By: #### M 100.678, L400.0001 ####[facility] [address] [place], [address] Urine blood detectionOrdered By: Dominik Galvan on 01-17-2025 Urine Occult Blood 25 /ul High Negative [facility] Urine clarityOrdered By: Shanna Galvan on 01-17-2025 Clarity (U) Sl. Cloudy Clear [facility] Urine color determinationOrd ered By: Dominik Galvan on 01-17-2025 Color (U) Yellow Yellow [facility] Urine cultureOrdered By: Yodit Florence on 01-17-2025 Bacteria identified Cx Nom (U) Klebsiella pneumoniae sp pneum Abnormal [facility] Urine glucose detectionOrder ed By: Dominik Galvan on 01-17-2025 Glucose Ql (U) Normal mg/dl Normal [facility] Urine leukocyte esterase det ection by dipstickOrdered By: Dominik Galvan on 01-17-2025 Leukocyte esterase Test strip Ql (U) 25 /ul High Negative [facility] Urine pHOrdered By: Dominik oliveira on 01-17-2025 pH (U) 6.5 [pH] 5.0 - 8.0 [facility] Urine sediment bacteria coun t by microscopy (number/high power field)Ordered By: Dominik Galvan on 01-17-2025 Bacteria LM.HPF (Urine sed) [#/Area] 3 /[HPF] None Seen [facility] Urine specific gravity measu rementOrdered By: Dominik Galvan on 01-17-2025 Specific gravity (U) [Rel density] 1.015 1.002-1.030 [facility] Urine urobilinogen measureme ntOrdered By: Dominik Galvan on 01-17-2025 Urobilinogen Ql (U) 4 mg/dl High Normal [facility] Urobilinogen Ql (U)Ordered B y: Dominik Galvan on 01-17-2025 Urobilinogen (U) [Mass/Vol] 4 mg/dL High Normal [facility] White blood cell (WBC) count Ordered By: Dominik Galvan on 01-17-2025 WBC (Bld) [#/Vol] 13.0 10*3/uL High 4.4-11.0 [facility] White blood cell countOrdere d By: Dominik Galvan on 01-17-2025 Urine WBC 0-5 SEEN /hpf 0-5 [facility] White blood cell count 0-5 SEEN /hpf 0-5 [facility] CNOVon 12-23-2024 CNOV Office Visit (UROLWS ) MICHAELA BRANDT ([id number]) 1940 F Date Time Provider Department 12/23/24 10:00 AM TOM BALTAZAR During your visit today, we recorded the following information about you: Temperature Pulse Respiration Blood pressure 97.4 degrees 80/minute 12/minute 144/64 Weight 59.9 kg Tom Baltazar PA-C 12/23/2024 3:21 PM Addendum [facility] [place] [facility] NEW PATIENT CLINIC NOTE (F) SERVICE [...] Clear PRO (more content not included)... Normal [facility] CNPNon 12-23-2024 CNPN Telephone (UROLWS) MICHAELA BRANDT ([id number]) 1940 F Date Time Provider Department 12/23/24 TOM BALTAZAR During your visit today, we recorded the following information about you: Nusrat Crespo LPN 12/23/2024 4:46 PM Signed Faxed signed Authorization to Disclose Health Information to [facility] to office of Dr. Ovalle for urological records. RAMIREZ Valdes Kimberly, LPN 12/25/2024 12:50 PM Signed Received one lab from [facility] via [employer]. Uploaded to [employer] via [employer]. Nusrat Crespo LPN Allergies As of Date: 12/23/2024 (No Known Allergies) Date Reviewed: 12/23/2024 Reviewed by: Nusrat Crespo LPN - Fully Assessed Reason for Visit: Request Outside Medical Records [[id number]] Prescriptions as of 12/25/2024 - Catheter (SELF-CATHETER, [...] Status:Closed by NUSRAT CRESPO on 12/25/24 Normal [facility] UA DIP, URINE (POC)on 2024 BILIRUBIN UA (POCT) Negative Negative [facility] CLARITY UA (POCT) Clear [facility] COLOR UA (POCT) [facility] GLUCOSE UA (POCT) Negative Negative mg/dL [facility] Hemoglobin Ql (U) Trace-intact Abnormal Negative [facility] Interpretation and review of laboratory results Abnormal [facility] KETONE UA (POCT) Negative Negative mg/dL [facility] LEUKOCYTES UA (POCT) Trace Abnormal Negative [facility] NITRITE UA (POCT) Negative Negative [facility] PH UA (POCT) 5.0 4.5 - 8.0 [facility] Protein Ql (U) Negative Negative mg/dL [facility] SPECIFIC GRAVITY UA (POCT) >=1.030 1.005 - 1.030 [facility] UROBILINOGEN UA (POCT) 0.2 Supriya l E.U./dL [facility] Location:[facility], [address], [place], [address] [place] [address] POINT OF CARE [facility] CNOVon 12-10-2024 CNOV Office Visit (MANUEL ) MICHAELA BRANDT ([id number]) 1940 F Date Time Provider Department 12/10/24 12:30 PM DILLAN SANTIAGO During your visit today, we recorded the following information about you: Dillan Santiago MD 12/10/2024 5:10 PM Signed [facility] Initial Consult Michaela Brandt [...] on her own. They are looking into [facility]. Have cameras installed so they [...] she knows and feels. Just moved to [place] where her daughter lives after needing to sell her 3 story home to allow her to continue to live independently. Last PCP was Ludin Richey in the [place] area. Is now in her own 1 level apartment. Needs assistance with medication dispensing and is needing support to drive her to appointments and to the store. [facility] [...] UTIs and followed with a urologist in [place]. Denies abdominal pain, fever, chills, or dark/foul [...] secure location? No Social History: Primary language: Turkish Marital Status: Living situation: Home w/ Family Socially engaged? (participates in activities such as clubs, latter day, community center, sports, games, visiting friends/relatives, etc?): YES once a week she goes out. 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 NO [...] (EUTHYROX) 50 (more content not included)... [facility] Telephone (GERIWR) ARYAMICHAELA MARTINEZ ([id number]) 1940 F Date Time Provider Department 12/10/24 DILLAN SANTIAGO During your visit today, we recorded the following information about you: Colten Greer MA 12/10/2024 2:11 PM Signed Patient's daughter states that [facility] needs something from Dr. Santiago that its ok for patient to attend but not sure what exactly is needed. Phone call to [facility] for intake to contact our office to see what information they need from us. EVON Wade Mary, LPN 12/12/2024 2:29 PM Signed Called [facility] for 2nd time, left message with Intake. To call office back [facility]# [phone] Mckenzie Lombardo LPN December 12, 2024 2:29 PM Colten Greer MA 12/16/2024 2:34 PM Signed Spoke with [facility] at [facility]. Once he has seen the [...] Encounter Status:Closed by COLTEN GREER on 12/16/24 [facility] Markus 11[facility]21-2024 [facility]FAMWS[facility] MICHAELA BRANDT ([id number]) 1940 F Date Time Provider Department 11/21/24 [...] Status:Closed by MARIPOSA SALINAS on 03/30/25 Normal [facility] CBC panel Auto (Bld)on 11-17 Erythrocyte distribution width (RBC) [Ratio] 13.2 % Normal 11.5-15.0 [facility] Comment on above: Order Comment: Speci men Type: BLOOD SPECIMENOrdering Facility: [facility] Address: [address] [place] [address] Performed By: #### 5 8410-2 ####[facility] [id number] [place] [address] [place] Hematocrit (Bld) [Volume fraction] 37.7 % Normal 36.0-46.0 [facility] Comment on above: Order Comment: Speci men Type: BLOOD SPECIMENOrdering Facility: [facility] Address: [address] [place] [address] Performed By: #### 5 8410-2 ####[facility] [id number] [place] [address] [place] Hemoglobin (Bld) [Mass/Vol] 13.1 g/dL Normal 11.5-15.5 [facility] Comment on above: Order Comment: Speci men Type: BLOOD SPECIMENOrdering Facility: [facility] Address: [address] [place] [address] Performed By: #### 5 8410-2 ####[facility] [id number] [place] [address] [place] MCH (RBC) [Entitic mass] 30.5 pg Normal 26.0-34.0 [facility] Comment on above: Order Comment: Speci men Type: BLOOD SPECIMENOrdering Facility: [facility] Address: [address] [place] [address] Performed By: #### 5 8410-2 ####[facility] TONONCSHUKRI [id number] [place] [address] [place] MCHC (RBC) [Mass/Vol] 34.7 g/dL Normal 30.5-36.0 [facility] Comment on above: Order Comment: Speci men Type: BLOOD SPECIMENOrdering Facility: [facility] Address: [address] [place] [address] Performed By: #### 5 8410-2 ####[facility]ITALNCGREGORIAJitendra [id number] [place] [address] [place] MCV (RBC) [Entitic vol] 87.9 fL Normal 80.0-100.0 [facility] Comment on above: Order Comment: Speci men Type: BLOOD SPECIMENOrdering Facility: [facility] Address: [address] [place] [address] Performed By: #### 5 8410-2 ####[facility]OSPITALNCA [id number] [place] [address] [place] Nucleated RBC (Bld) [#/Vol] 10*3/uL Normal <0.01 [facility] Comment on above: Order Comment: Speci men Type: BLOOD SPECIMENOrdering Facility: [facility] Address: [address] [place], [place] [address] Performed By: #### 5 8410-2 ####[facility]ITALNCLIA [id number] [place] [address] [place] Platelet mean volume (Bld) [Entitic vol] 10.3 fL Normal 9.0-12.7 [facility] Comment on above: Order Comment: Speci men Type: BLOOD SPECIMENOrdering Facility: [facility] Address: [address] [place], [place] [address] Performed By: #### 5 8410-2 ####[facility] ONEYDAWNCLIA [id number] [place] [address] [place] Platelets (Bld) [#/Vol] 176 10*3/uL Normal 150-400 [facility] Comment on above: Order Comment: Speci men Type: BLOOD SPECIMENOrdering Facility: [facility] Address: [address] [place], [place] [address] Performed By: #### 5 8410-2 ####[facility] ELIOHILDEBRANNCLIA [id number] [place] [address] [place] RBC (Bld) [#/Vol] 4.29 10*6/uL Normal 3.90-5.20 [facility] Comment on above: Order Comment: Speci men Type: BLOOD SPECIMENOrdering Facility: [facility] Address: [address] [place] [address] Performed By: #### 5 8410-2 ####[facility]ITALNCLIA [id number] [place] [address] [place] WBC (Bld) [#/Vol] 13.60 10*3/uL High 3.70-11.00 [facility] Comment on above: Order Comment: Speci men Type: BLOOD SPECIMENOrdering Facility: [facility] Address: [address] [place], [place] [address] Performed By: #### 5 8410-2 ####[facility]ITALNCLIA [id number] [place] [address] [place] [facility] [place] Comprehensive metabolic 2000 panelon 11-17-2024 Albumin [Mass/Vol] 4.0 g/dL Normal 3.9-4.9 [facility] Comment on above: Order Comment: Speci men Type: BLOOD SPECIMENOrdering Facility: [facility] Address: [address] [place] [address] Performed By: #### 2 4323-8 ####[facility] MILLTOWNCLIA [id number] [place] [address] [place] ALP [Catalytic activity/Vol] 78 U/L Normal 34-123 [facility] Comment on above: Order Comment: Speci men Type: BLOOD SPECIMENOrdering Facility: [facility] Address: [address] [place] [address] Performed By: #### 2 4323-8 ####[facility] MILLWNCLIA [id number] [place] [address] [place] ALT [Catalytic activity/Vol] 5 U/L Low 7-38 [facility] Comment on above: Order Comment: Speci men Type: BLOOD SPECIMENOrdering Facility: [facility] Address: [address] [place] [address] Performed By: #### 2 4323-8 ####[facility]ITALNCLIA [id number] [place] [address] [place] Anion gap [Moles/Vol] 14 mmol/L Normal 8-15 [facility] Comment on above: Order Comment: Speci men Type: BLOOD SPECIMENOrdering Facility: [facility] Address: [address] [place] [address] Performed By: #### 2 4323-8 ####[facility]ITALNCLIA [id number] [place] [address] [place] AST [Catalytic activity/Vol] 11 U/L Low 13-35 [facility] Comment on above: Order Comment: Speci men Type: BLOOD SPECIMENOrdering Facility: [facility] Address: [address] [place] [address] Performed By: #### 2 4323-8 ####[facility] FLORIDAWNCLIA [id number] [place] [address] [place] Bilirubin [Mass/Vol] 1.2 mg/dL Normal 0.2-1.3 [facility] Comment on above: Order Comment: Speci men Type: BLOOD SPECIMENOrdering Facility: [facility] Address: [address] [place], [place] [address] Performed By: #### 2 4323-8 ####[facility]ITALNCLIA [id number] [place] [address] [place] Calcium [Mass/Vol] 9.3 mg/dL Normal 8.5-10.2 [facility] Comment on above: Order Comment: Speci men Type: BLOOD SPECIMENOrdering Facility: [facility] Address: [address] [place] [address] Performed By: #### 2 4323-8 ####[facility]OSPITALNCA [id number] [place] [address] [place] Chloride [Moles/Vol] 104 mmol/L Normal 98-107 [facility] Comment on above: Order Comment: Speci men Type: BLOOD SPECIMENOrdering Facility: [facility] Address: [address] [place] [address] Performed By: #### 2 4323-8 ####[facility] [id number] [place] [address] [place] CO2 [Moles/Vol] 23 mmol/L Normal 22-30 [facility] Comment on above: Order Comment: Speci men Type: BLOOD SPECIMENOrdering Facility: [facility] Address: [address] [place], [place] [address] Performed By: #### 2 4323-8 ####[facility]ENTERA [id number] [place] [address] [place] Creatinine [Mass/Vol] 0.95 mg/dL Normal 0.58-0.96 [facility] Comment on above: Order Comment: Speci men Type: BLOOD SPECIMENOrdering Facility: [facility] Address: [address] [place], [place] [address] Performed By: #### 2 4323-8 ####[facility] [id number] [place] [address] [place] Creatinine and Glomerular filtration rate.predicted panel (S/P/Bld) 59 mL/min/1.73m??? Low >=60 [facility] Comment on above: Order Comment: Marcel hopper Type: BLOOD SPECIMENOrdering Facility: [facility] Address: [address] [place] [address] Result Comment: Linda mated Glomerular Filtration Rate [...] actual GFR. Performed By: #### 2 4323-8 ####[facility] [id number] [place] [address] [place] Glucose [Mass/Vol] 119 mg/dL High 74-99 [facility] Comment on above: Order Comment: Marcel hopper Type: BLOOD SPECIMENOrdering Facility: [facility] Address: [address] [place] [address] Result Comment: The [place] Diabetes Association (ADA) provides guidance for cutoff [...] Standards of Medical Care in Diabetes 2016, [place] [employer]. Diabetes Care. 2016.39(Suppl 1). Performed By: #### 2 4323-8 ####[facility] FL[facility]IDAWNCLIA [id number] [place] [address] [place] Potassium [Moles/Vol] 3.7 mmol/L Normal 3.7-5.1 [facility] Comment on above: Order Comment: Speci men Type: BLOOD SPECIMENOrdering Facility: [facility] Address: [address] [place] [address] Performed By: #### 2 4323-8 ####[facility] FLORIDAWNCLIA [id number] [place] [address] [place] Protein [Mass/Vol] 6.6 g/dL Normal 6.3-8.0 [facility] Comment on above: Order Comment: Speci men Type: BLOOD SPECIMENOrdering Facility: [facility] Address: [address] [place] [address] Performed By: #### 2 4323-8 ####[facility] HOSPITALLEDALIA [id number] [place] [address] [place] Sodium [Moles/Vol] 141 mmol/L Normal 136-144 [facility] Comment on above: Order Comment: Speci men Type: BLOOD SPECIMENOrdering Facility: [facility] Address: [address] [place] [address] Performed By: #### 2 4323-8 ####[facility] HOSPITALLEDALIA [id number] [place] [address] [place] Urea nitrogen [Mass/Vol] 23 mg/dL High 7-21 [facility] Comment on above: Order Comment: Speci men Type: BLOOD SPECIMENOrdering Facility: [facility] Address: [address] [place] [address] Performed By: #### 2 4323-8 ####[facility]ITALNCLIA [id number] [place] [address] [place] Lipid 1996 panelon 12-30-202 4 Cholesterol [Mass/Vol] 176 mg/dL Normal <200 [facility] Comment on above: Order Comment: Speci men Type: BLOOD SPECIMENOrdering Facility: [facility] Address: [address] [place] [address] Result Comment: <200 mg/dL, Desirable 200-239 mg/dL, Borderline high >239 mg/dL, High Performed By: #### 2 4331-1 ####[facility] LABCLIA [id number] [address] STATES [facility] [id number] [place] [address] [place]#### 3051-0, 3024-7, 3016-3 ####[facility] LABCLIA [id number] [place] [address] [place] Cholesterol in HDL [Mass/Vol] 52 mg/dL Normal >39 [facility] Comment on above: Order Comment: Speci men Type: BLOOD SPECIMENOrdering Facility: [facility] Address: [address] [place] [address] Result Comment: 40-5 9 mg/dL, Acceptable >59 mg/dL, High: Negative risk factor for coronary heart disease <40 mg/dL, Low: Positive risk factor for coronary heart disease Performed By: #### 2 4331-1 ####[facility] LABCLIA [id number] [place] [address] [place] [facility] [id number] [place] [address] [place]#### 3051-0, 3024-7, 3016-3 ####[facility] LABCLIA [id number] [place] [address] [place] Cholesterol in LDL [Mass/Vol] 107 mg/dL High <100 [facility] Comment on above: Order Comment: Speci men Type: BLOOD SPECIMENOrdering Facility: [facility] Address: [address] [place] [address] Result Comment: <100 mg/dL, Optimal 100-129 mg/dL, Near optimal/above optimal 130-159 mg/dL, Borderline high 160-189 mg/dL, High >189 mg/dL, Very high Secondary prevention optimal LDL Cholesterol levels are recommended to be < 70 mg/dL Performed By: #### 2 4331-1 ####[facility] LABCLIA [id number] [address] [id number] [address] [place]#### 3051-0, 3024-7, 3016-3 ####[facility] CENTERIA [id number] [address] STATES OF [facility] Cholesterol in LDL/Cholesterol in HDL [Mass ratio] 2.06 {ratio} Normal <2.54 [facility] Comment on above: Order Comment: Speci men Type: BLOOD SPECIMENOrdering Facility: [facility] Address: [address] [place] [address] Result Comment: Chong brooke: 1. National Cholesterol Education Program ATP III Guideline At-A-Glance Quick Desk Reference: National Heart, Lung, and Blood [place]. National Institutes of Health. 2001: NIH Publication No. 01-3305. 2. An International Atherosclerosis Society position paper: global recommendations for the management of dyslipidemia: executive summary, Atherosclerosis. 2014: 232(2):410-413. Performed By: #### 2 4331-1 ####[facility] LABIA [id number] [address] [id number] [address] [place]#### 3051-0, 3024-7, 3016-3 ####[facility] LABCLIA [id number] [place] [address] [place] Cholesterol in VLDL [Mass/Vol] 17 mg/dL Normal <30 [facility] Comment on above: Order Comment: Speci men Type: BLOOD SPECIMENOrdering Facility: [facility] Address: [address] [place] [address] Performed By: #### 2 4331-1 ####[facility] LABCLIA [id number] [address] STATES OF [facility] [id number] [place] [address] [place]#### 3051-0, 3024-7, 3016-3 ####[facility] LABCLIA [id number] [place] [address] [place] Cholesterol non HDL [Mass/Vol] 124 mg/dL Normal <130 [facility] Comment on above: Order Comment: Speci men Type: BLOOD SPECIMENOrdering Facility: [facility] Address: [address] [place] [address] Result Comment: <130 mg/dL, Optimal 130-159 mg/dL, Near optimal/above optimal 160-189 mg/dL, Borderline high 190-219 mg/dL, High >219 mg/dL, Very high Secondary prevention optimal non HDL Cholesterol levels are recommended to be <100 mg/dL Performed By: #### 2 4331-1 ####[facility] LABCLIA [id number] [address] STATES OF [facility] [id number] [place] [address] [place]#### 3051-0, 3024-7, 3016-3 ####[facility] LABCLIA [id number] [place] [address] [place] Cholesterol.total/Choles terol in HDL [Mass ratio] 3.38 {ratio} Normal <5.10 [facility] Comment on above: Order Comment: Speci men Type: BLOOD SPECIMENOrdering Facility: [facility] Address: [address] [place] [id number] Performed By: #### 2 4331-1 ####[facility] LABCLIA [id number] [address] [address] [facility] [id number] [place] [address] [place]#### 3051-0, 3024-7, 3016-3 ####[facility] LABCLIA [id number] [place] [address] [place] FASTING TIME 14 hrs Normal [facility] Comment on above: Order Comment: Speci men Type: BLOOD SPECIMENOrdering Facility: [facility] Address: [address] [place] [address] Performed By: #### 2 4331-1 ####[facility] LABCLIA [id number] [address] STATES [facility] [id number] [place] [address] [place]#### 3051-0, 3024-7, 3016-3 ####[facility] LABCLIA [id number] [place] [address] [place] Triglyceride [Mass/Vol] 83 mg/dL Normal <150 [facility] Comment on above: Order Comment: Speci men Type: BLOOD SPECIMENOrdering Facility: [facility] Address: [address] [place] [id number] Result Comment: <150 mg/dL, Normal 150-199 mg/dL, Borderline high 200-499 mg/dL, High >499 mg/dL, Very high Performed By: #### 2 4331-1 ####[facility] LABCLIA [id number] [address] [id number] [address] [facility] [id number] [place] [address] [place]#### 3051-0, 3023-7, 6-3 ####[facility] LABCLIA [id number] [place] [address] [place] T3Free SerPl-mCncon 11-17-20 24 Free T3 [Mass/Vol] 2.4 pg/mL Normal 2.3-4.1 [facility] Comment on above: Order Comment: Speci men Type: BLOOD SPECIMENOrdering Facility: [facility] Address: [address] [place] [address] Performed By: #### 2 4331-1 ####[facility] LABCLIA [id number] [address] STATES [facility] [id number] [place] [address] [place]#### 3051-0, 7, 3 ####[facility] LABCLIA [id number] [place] [address] [place] T4 Free SerPl-mCncon 30-2 024 Free T4 [Mass/Vol] 1.2 ng/dL Normal 0.9-1.7 [facility] Comment on above: Order Comment: Speci men Type: BLOOD SPECIMENOrdering Facility: [facility] Address: [address] [place] [id number] Performed By: #### 2 4331-1 ####[facility] LABCLIA [id number] [address] STATES OF [facility] [id number] [place] [address] [place]#### 3051-0, 7, 3016-3 ####[facility] LABCLIA [id number] [place] [address] [place] TSH SerPl-aCncon 11-17-2024 TSH Qn 1.280 m[IU]/L Normal 0.270-4.200 [facility] Comment on above: Order Comment: Speci men Type: BLOOD SPECIMENOrdering Facility: [facility] Address: [address] [place] [address] Performed By: #### 2 4331-1 ####[facility] LABCLIA [id number] [address] [id number] [place] [address] [place]#### 3051-0, 3024-7, 3016-3 ####[facility] LABIA [id number] [address] [place] Vit B12 SerPl-mCncon 024 Cobalamin (Vitamin B12) [Mass/Vol] 404 pg/mL Normal 232-1245 [facility] Comment on above: Order Comment: Speci men Type: BLOOD SPECIMENOrdering Facility: [facility] Address: [address] [place] [address] Performed By: #### 2 132-9 ####[facility] LABIA [id number] [address] [place] CNOVon 11-05-2024 CNOV Office Visit (INTMWS ) MICHAELA BRANDT ([id number]) 1940 F Date Time Provider Department 11/05/24 [...] today for establish care. [place] moved to [place] where her daughter lives after needing to sell her 3 story home to allow her to continue to live independently. [place] PCP was Ludin Riche[place] in the [place] area. Is now in her own 1 level apartment. Needs assistance with medication dispensing and is needing support to drive her to appointments and to the store. Is hoping to go to [employer] a few times a week as well. [...] UTIs and followed with a urologist in [place]. Denies abdominal pain, fever, chills, or dark/foul [...] (more content not included)... Normal [facility] Culture, Urineon 12-19-2022 Culture, Urine Culture, [...] F Trimethoprim/Sulfameth oxazole S <=20 F Normal [facility] Vital Signs Date Time Vital Sign Value Performing Clinician Facility 07-17-2025 11:29-0400 Body weight 54.61 kg Dillan Santiago MD Work Phone: [facility] 07-17-2025 11:29-0400 Diastolic blood pressure 77 mm[Hg] Dillan Santiago MD Work Phone: [facility] 07-17-2025 11:29-0400 Heart rate 72 /min Dillan Santiago MD Work Phone: 8(021)223-573490 [place] [address] 07-17-2025 11:29-0400 Respiratory rate 16 /min Dillan Santiago MD Work Phone: 7(921)611-382517 [place] [address] 07-17-2025 11:29-0400 Systolic blood pressure 138 mm[Hg] Dillan Santiago MD Work Phone: 8(226)905-159317 [place] [address] 06-20-2025 14:19-0400 Body temperature 99.1 [degF] Dr. Dillan Santiago MD Work Phone: 7(370)208-572240 [place] [address] 06-20-2025 14:19-0400 Diastolic blood pressure 53 mm[Hg] Dr. Dillan Santiago MD Work Phone: 0(660)664-266940 [place] [address] 06-20-2025 14:19-0400 Heart rate 80 /min Dr. Dillan Santiago MD Work Phone: 3(408)782-609340 [place] [address] 06-20-2025 14:19-0400 Respiratory rate 22 /min Dr. Dillan Santiago MD Work Phone: 0(050)150-712340 [place] [address] 06-20-2025 14:19-0400 SaO2% (BldA) [Mass fraction] 99 % Dr. Dillan Santiago MD Work Phone: 8(806)343-864040 [place] [address] 06-20-2025 14:19-0400 Systolic blood pressure 136 mm[Hg] Dr. Dillan Santiago MD Work Phone: 3(560)214-432340 [place] [address] 06-20-2025 08:29-0400 Body height 152.[address] Dillan Santiago MD Work Phone: 7(663)048-512440 [place] [address] 06-20-2025 08:29-0400 Body mass index (BMI) [Ratio] 23.4 kg/m2 Dr. Dillan Santiago MD Work Phone: 4(137)585-322040 [place] [address] 06-20-2025 08:29-0400 Body weight 54.[address] Dillan Santiago MD Work Phone: 9(650)938-108540 [place] [address] 06-03-2025 11:18-0400 Body weight 54.16 kg Dillan Santiago MD Work Phone: 0(273)341-496917 [place] [address] 06-03-2025 11:18-0400 Diastolic blood pressure 71 mm[Hg] Dillan Santiago MD Work Phone: [facility] 06-03-2025 11:18-0400 Heart rate 64 /min Dillan Santiago MD Work Phone: [facility] 06-03-2025 11:18-0400 Respiratory rate 16 /min Dillan Santiago MD Work Phone: [facility] 06-03-2025 11:18-0400 SaO2% (BldA) [Mass fraction] 95 % Dillan Santiago MD Work Phone: [facility] 06-03-2025 11:18-0400 Systolic blood pressure 134 mm[Hg] Dillan Santiago MD Work Phone: [facility] 05-17-2025 11:49-0400 Body temperature 98.6 [degF] Dr. Vadim Florence DO Work Phone: [facility] 05-17-2025 11:49-0400 Diastolic blood pressure 66 mm[Hg] Dr. Vadim Florence DO Work Phone: 1(616)558-033655 [place] [address] 05-17-2025 11:49-0400 Heart rate 65 /min Dr. Vadim Florence DO Work Phone: [facility] 05-17-2025 11:49-0400 Respiratory rate 16 /min Dr. Vadim Florence DO Work Phone: [facility] 05-17-2025 11:49-0400 SaO2% (BldA) [Mass fraction] 99 % Dr. Vadim Florence DO Work Phone: [facility] 05-17-2025 11:49-0400 Systolic blood pressure 148 mm[Hg] Dr. Vadim Florence DO Work Phone: [facility] 05-17-2025 09:32-0400 Body height 152.[address] Vadim Florence DO Work Phone: [facility] 05-06-2025 11:28-0400 Diastolic blood pressure 64 mm[Hg] Dillan Santiago MD Work Phone: [facility] 05-06-2025 11:28-0400 Systolic blood pressure 144 mm[Hg] Dillan Santiago MD Work Phone: [facility] 05-06-2025 11:27-0400 Body weight 55.79 kg Dillan Santiago MD Work Phone: [facility] 05-06-2025 11:27-0400 Heart rate 62 /min Dillan Santiago MD Work Phone: [facility] 05-06-2025 11:27-0400 Respiratory rate 12 /min Dillan Santiago MD Work Phone: [facility] 05-06-2025 11:27-0400 SaO2% (BldA) [Mass fraction] 98 % Dillan Santiago MD Work Phone: [facility] 04-17-2025 11:23-0400 Diastolic blood pressure 71 mm[Hg] Dillan Santiago MD Work Phone: [facility] 04-17-2025 11:23-0400 Heart rate 67 /min Dillan Santiago MD Work Phone: [facility] 04-17-2025 11:23-0400 Respiratory rate 16 /min Dillan Santiago MD Work Phone: [facility] 04-17-2025 11:23-0400 SaO2% (BldA) [Mass fraction] 98 % Dillan Santiago MD Work Phone: [facility] 04-17-2025 11:23-0400 Systolic blood pressure 124 mm[Hg] Dillan Santiago MD Work Phone: [facility] 03-19-2025 07:51-0400 Body temperature 98.3 [degF] Dr. Vadim Florence DO Work Phone: [facility] 03-19-2025 07:51-0400 Diastolic blood pressure 64 mm[Hg] Dr. Vadim Florence DO Work Phone: [facility] 03-19-2025 07:51-0400 Heart rate 68 /min Dr. Vadim Florence DO Work Phone: 4(138)227-253855 [place] [address] 03-19-2025 07:51-0400 Respiratory rate 16 /min Dr. Vadmi Florence DO Work Phone: 6(988)549-670055 [place] [address] 03-19-2025 07:51-0400 SaO2% (BldA) [Mass fraction] 98 % Dr. Vadim Florence DO Work Phone: 3(795)071-047155 [place] [address] 03-19-2025 07:51-0400 Systolic blood pressure 150 mm[Hg] Dr. Vadim Florence DO Work Phone: 6(595)085-649155 [place] [address] 03-17-2025 14:08-0400 Body mass index (BMI) [Ratio] 25.4 kg/m2 Dr. Vadim Florence DO Work Phone: 2(078)997-313955 [place] [address] 03-17-2025 14:08-0400 Body weight 58.[address] Vadim Florence DO Work Phone: 3(560)579-964355 [place] [address] 03-11-2025 10:53-0400 Body temperature 97.7 [degF] Dr. Vadim Florence DO Work Phone: 7(670)842-998555 [place] [address] 03-11-2025 10:53-0400 Diastolic blood pressure 48 mm[Hg] Dr. Vadim Florence DO Work Phone: 7(705)107-698455 [place] [address] 03-11-2025 10:53-0400 Heart rate 67 /min Dr. Vadim Florence DO Work Phone: 2(387)751-391655 [place] [address] 03-11-2025 10:53-0400 Respiratory rate 18 /min Dr. Vadim Florence DO Work Phone: 4(268)814-274255 [place] [address] 03-11-2025 10:53-0400 SaO2% (BldA) [Mass fraction] 100 % Dr. Vadim Florence DO Work Phone: 7(563)543-195655 [place] [address] 03-11-2025 10:53-0400 Systolic blood pressure 118 mm[Hg] Dr. Vadim Florence DO Work Phone: 8(215)983-731455 [place] [address] 03-11-2025 10:52-0400 Body height 152.[address] Vadim Florence DO Work Phone: 3(286)153-233355 [place] [address] 03-11-2025 10:52-0400 Body weight 58.[address] Vadim Florence DO Work Phone: 9(444)506-418455 [place] [address] 03-10-2025 14:50-0400 Body mass index (BMI) [Ratio] 25.4 kg/m2 Dr. Vadim Florence DO Work Phone: 2(898)176-372855 [place] [address] 03-04-2025 13:43-0400 Body temperature 98.1 [degF] Dr. Vadim Florence DO Work Phone: 0(876)593-886755 [place] [address] 03-04-2025 13:43-0400 Diastolic blood pressure 52 mm[Hg] Dr. Vadim Florence DO Work Phone: 2(384)613-799555 [place] [address] 03-04-2025 13:43-0400 Heart rate 83 /min Dr. Vadim Florence DO Work Phone: 6(809)313-805755 [place] [address] 03-04-2025 13:43-0400 Respiratory rate 16 /min Dr. Vadim Florence DO Work Phone: 3(776)756-258155 [place] [address] 03-04-2025 13:43-0400 SaO2% (BldA) [Mass fraction] 98 % Dr. Vadim Florence DO Work Phone: 0(258)629-855655 [place] [address] 03-04-2025 13:43-0400 Systolic blood pressure 142 mm[Hg] Dr. Vadim Florence DO Work Phone: 6(429)071-909755 [place] [address] 03-04-2025 11:43-0400 Inhaled oxygen flow rate 97 L/min Dr. Vadim Florence DO Work Phone: 3(212)373-515755 [place] [address] 03-04-2025 05:53-0400 Body mass index (BMI) [Ratio] 25.2 kg/m2 Dr. Vadim Florence DO Work Phone: 9(343)321-617655 [place] [address] 03-04-2025 05:53-0400 Body weight 58.[address] Vadim Florence DO Work Phone: [facility] 03-01-2025 15:09-0400 Body height 152.[address] Vadim Florence DO Work Phone: 2(348)170-111855 [place] [address] 03-01-2025 13:19-0400 Diastolic blood pressure 59 mm[Hg] Dr. Vadim Florence DO Work Phone: 8(052)943-547255 [place] [address] 03-01-2025 13:19-0400 Heart rate 60 /min Dr. Vadim Florence DO Work Phone: 8(856)392-250655 [place] [address] 03-01-2025 13:19-0400 Respiratory rate 21 /min Dr. Vadim Florence DO Work Phone: 2(884)995-233755 [place] [address] 03-01-2025 13:19-0400 SaO2% (BldA) [Mass fraction] 98 % Dr. Vadim Florence DO Work Phone: 7(812)447-598555 [place] [address] 03-01-2025 13:19-0400 Systolic blood pressure 145 mm[Hg] Dr. Vadim Florence DO Work Phone: 0(444)656-478955 [place] [address] 03-01-2025 12:26-0400 Body temperature 97.6 [degF] Dr. Vadim Florence DO Work Phone: [facility] 03-01-2025 11:25-0400 Body height 152.[address] Vadim Florence DO Work Phone: [facility] 03-01-2025 11:25-0400 Body mass index (BMI) [Ratio] 25.7 kg/m2 Dr. Vadim Florence DO Work Phone: [facility] 03-01-2025 11:25-0400 Body weight 59.[address] Vadim Florence DO Work Phone: [facility] 02-19-2025 11:23-0400 Body temperature 98.71 [degF] Walt Robles APRN.OCEAN EXPORT COORDINATOR Work Phone: [facility] 02-19-2025 11:23-0400 Body weight 57 kg Walt Robles APRN.CNP Work Phone: [facility] 02-19-2025 11:23-0400 Diastolic blood pressure 79 mm[Hg] Walt Robles STEEL MANAGER.OCEAN EXPORT COORDINATOR Work Phone: [facility] 02-19-2025 11:23-0400 Heart rate 70 /min Walt Robles STEEL MANAGER.OCEAN EXPORT COORDINATOR Work Phone: [facility] 02-19-2025 11:23-0400 Respiratory rate 22 /min Walt Robles STEEL MANAGER.OCEAN EXPORT COORDINATOR Work Phone: [facility] 02-19-2025 11:23-0400 SaO2% (BldA) [Mass fraction] 98 % Walt Robles STEEL MANAGER.OCEAN EXPORT COORDINATOR Work Phone: [facility] 02-19-2025 11:23-0400 Systolic blood pressure 145 mm[Hg] Walt Robles STEEL MANAGER.OCEAN EXPORT COORDINATOR Work Phone: [facility] 02-18-2025 10:20-0400 Body weight 57.61 kg Mariposa Older STEEL MANAGER.OCEAN EXPORT COORDINATOR Work Phone: [facility] 02-18-2025 10:20-0400 Diastolic blood pressure 80 mm[Hg] Mariposa Older STEEL MANAGER.OCEAN EXPORT COORDINATOR Work Phone: [facility] 02-18-2025 10:20-0400 Heart rate 74 /min Mariposa Older STEEL MANAGER.OCEAN EXPORT COORDINATOR Work Phone: [facility] 02-18-2025 10:20-0400 Respiratory rate 16 /min Mariposa Older STEEL MANAGER.OCEAN EXPORT COORDINATOR Work Phone: [facility] 02-18-2025 10:20-0400 SaO2% (BldA) [Mass fraction] 97 % Mariposa Older STEEL MANAGER.OCEAN EXPORT COORDINATOR Work Phone: [facility] 02-18-2025 10:20-0400 Systolic blood pressure 122 mm[Hg] Mariposa Older STEEL MANAGER.OCEAN EXPORT COORDINATOR Work Phone: [facility] 02-04-2025 11:21-0400 Body weight 57.42 kg Dillan Santiago MD Work Phone: [facility] 02-04-2025 11:21-0400 Diastolic blood pressure 80 mm[Hg] Dillan Santiago MD Work Phone: [facility] 02-04-2025 11:21-0400 Heart rate 67 /min Dillan Santiago MD Work Phone: [facility] 02-04-2025 11:21-0400 SaO2% (BldA) [Mass fraction] 98 % Dillan Santiago MD Work Phone: [facility] 02-04-2025 11:21-0400 Systolic blood pressure 131 mm[Hg] Dillan Santiago MD Work Phone: [facility] 01-17-2025 19:54-0500 Body temperature 98.1 [degF] Dr. Vadim Florence DO Work Phone: [facility] 01-17-2025 19:54-0500 Diastolic blood pressure 69 mm[Hg] Dr. Vadim Florence DO Work Phone: [facility] 01-17-2025 19:54-0500 Heart rate 77 /min Dr. Vadim Florence DO Work Phone: [facility] 01-17-2025 19:54-0500 Respiratory rate 19 /min Dr. Vadim Florence DO Work Phone: [facility] 01-17-2025 19:54-0500 SaO2% (BldA) [Mass fraction] 98 % Dr. Vadim Florence DO Work Phone: [facility] 01-17-2025 19:54-0500 Systolic blood pressure 146 mm[Hg] Dr. Vadim Florence DO Work Phone: [facility] 12-23-2024 10:07-0500 Body temperature 97.39 [degF] Tom Baltazar PA-C Work Phone: [facility] 12-23-2024 10:07-0500 Body weight 59.88 kg Tom Baltazar PA-C Work Phone: [facility] 12-23-2024 10:07-0500 Diastolic blood pressure 64 mm[Hg] Tom Baltazar PA-C Work Phone: [facility] Comment on above: Tom notified of blood pressure. No c omplaints from patient. 12-23-2024 10:07-0500 Heart rate 80 /min Tom Baltazar PA-C Work Phone: [facility] 12-23-2024 10:07-0500 Respiratory rate 12 /min Tom Baltazar PA-C Work Phone: [facility] 12-23-2024 10:07-0500 SaO2% (BldA) [Mass fraction] 97 % Tom Baltazar PA-C Work Phone: [facility] 12-23-2024 10:07-0500 Systolic blood pressure 144 mm[Hg] Tom Baltazar PA-C Work Phone: [facility] Comment on above: Tom notified of blood pressure. No c omplaints from patient. 11-05-2024 14:35-0500 Body weight 60.78 kg Mariposa Older STEEL MANAGER.OCEAN EXPORT COORDINATOR Work Phone: [facility] 11-05-2024 14:35-0500 Diastolic blood pressure 72 mm[Hg] Mariposa Older STEEL MANAGER.OCEAN EXPORT COORDINATOR Work Phone: [facility] 11-05-2024 14:35-0500 Heart rate 76 /min Mariposa Older STEEL MANAGER.OCEAN EXPORT COORDINATOR Work Phone: [facility] 11-05-2024 14:35-0500 Respiratory rate 16 /min Mariposa Older STEEL MANAGER.OCEAN EXPORT COORDINATOR Work Phone: [facility] 11-05-2024 14:35-0500 SaO2% (BldA) [Mass fraction] 97 % Mariposa Older STEEL MANAGER.OCEAN EXPORT COORDINATOR Work Phone: [facility] 11-05-2024 14:35-0500 Systolic blood pressure 118 mm[Hg] Mariposa Older STEEL MANAGER.OCEAN EXPORT COORDINATOR Work Phone: [facility] 01-17-2024 13:24-0500 Body height 152.4 cm [facility] 01-17-2024 13:24-0500 Body mass index (BMI) [Ratio] 26.9 kg/m2 [facility] 01-17-2024 13:24-0500 Body weight 62.59 kg [facility] 01-17-2024 13:24-0500 Diastolic blood pressure 82 mm[Hg] [facility] 01-17-2024 13:24-0500 Heart rate 73 /min [facility] 01-17-2024 13:24-0500 Respiratory rate 16 /min [facility] 01-17-2024 13:24-0500 SaO2% (BldA) [Mass fraction] 99 % [facility] 01-17-2024 13:24-0500 Systolic blood pressure 126 mm[Hg] [facility] Encounters Encounter Date Encounter Type Care Provider Facility Start: 07-31-2025 End: 07-31-2025 Telephone encounter Kentrell AN Navigation Comment on above: Patient Update Start: 07-29-2025 ambulatory [facility] Facility:[facility] Start: 07-27-[address] [facility] Start: 07-24-2025 End: 07-27-2025 Telephone encounter Dillan Santiago MD Work Phone: [facility] [place] Comment on above: Missed therapy appt delay of care for OT ST Plan of Care Start: 07-20-2025 End: 07-21-2025 Refill Mariposa Salinas APRN.CNP Work Phone: [facility] [place] Comment on above: Refill Request Start: 07-17-2025 End: 07-22-2025 Telephone encounter Kentrell AN Navigation Start: 07-17-2025 End: 07-17-2025 ambulatory [facility] Facility:[facility] Start: 07-17-2025 End: 07-17-2025 Office outpatient visit 25 minutes Dillan Santiago MD Work Phone: [facility] [place] Comment on above: Pressure injury of r ight buttock, stage 2 (HCC) (Primary Dx); Chronic indwelling Lizarraga catheter; Anxiety and depression; Lymphocytosis; Acute heart failure, unspecified heart failure type (HCC); Leukocytosis, unspecified type; Recurrent falls Start: 07-17-2025 End: 07-17-2025 ambulatory DILLAN SANTIAGO Facility:[facility] Start: 07-16-2025 End: 07-16-2025 Telephone encounter Dillan Santiago MD Work Phone: [facility] [place] Comment on above: Patient Update Start: 07-15-2025 End: 07-17-2025 Refill Dillan Santiago MD Work Phone: [facility] [place] Comment on above: Refill Request Start: 07-14-2025 End: 07-14-2025 Patient encounter procedure Deana Klein Work Phone: Podiatry Comment on above: Onychomycosis Start: 07-14-2025 End: 07-14-2025 ambulatory DEANA LEVI Facility:[facility] Start: 07-13-2025 End: 07-14-2025 Telephone encounter Dillan Santiago MD Work Phone: [facility] [place] Comment on above: Home Health Orders Start: 06-30-2025 ambulatory Tanvir De Guzman ity:[facility] Start: 06-23-2025 ambulatory Vadim Estrada Facility:[facility] Start: 06-20-2025 ambulatory Dillan Briankristopher [facility] Start: 06-20-2025 End: 06-25-2025 Evaluation [...] nail) Start: 06-03-2025 End: 06-03-2025 ambulatory [facility] Facility:[facility] Start: 05-20-2025 End: 05-26-2025 Telephone encounter Dillan Santiago MD Work Phone: [facility] [place] Comment on above: Forms Start: 05-18-2025 End: [...] Dillan Santiago MD Work Phone: [facility] [place] Start: 05-07-2025 End: 05-12-2025 Telephone encounter Dillan Santiago MD Work Phone: [facility] [place] Comment on above: [facility] request ing order Start: 05-06-2025 End: 05-07-2025 Telephone encounter Dillan Santiago MD Work Phone: [facility] [place] Comment on above: Anxiety Start: 05-06-2025 End: 05-06-2025 ambulatory DILLANRA SANTIAGO Facility:[facility] Start: 05-06-2025 End: 05-06-2025 Office outpatient visit [...] Start: 05-06-2025 End: 05-06-2025 ambulatory DILLAN SANTIAGO Facility:[facility] Start: 05-04-2025 End: 05-04-2025 Telephone encounter Dillan Santiago MD Work Phone: [facility] [place] Comment on above: Edema Start: 05-01-2025 End: 05-02-2025 Refill Mariposa Salinas APRN.CNP Work Phone: [facility] [place] Comment on above: Refill Request Start: 04-27-2025 End: 05-05-2025 Telephone encounter Tom Baltazar PA-C Work Phone: Urology Comment on above: Orders (Self cathete r) Start: 04-24-2025 End: 04-24-2025 ambulatory Dillan Santiago MD Work Phone: [facility] [place] Start: 04-24-2025 End: 04-24-2025 Patient encounter procedure Dillan Santiago MD Work Phone: [facility] [place] Comment on above: [employer] Supervisor referral Start: 04-24-2025 End: 04-28-2025 Telephone encounter [...] Dillan Santiago MD Work Phone: [facility] [place] Comment on above: Patient Update; Orde rs Start: 04-17-2025 End: 04-20-2025 Telephone encounter Dillan Santiago MD Work Phone: [facility] [place] Comment on above: Follow HH Request information from halfway Start: 04-17-2025 End: 04-17-[address] Dillan Santiago MD Work Phone: [facility] Start: 04-17-2025 End: 04-17-2025 Patient encounter procedure Daya PEREZ -[facility] Work Phone: Start: 04-17-2025 End: 04-17-2025 Office outpatient visit 40 minutes Dillan Santiago MD Work Phone: [facility] [place] Comment on above: Ambulatory dysfuncti on (Primary [...] 3 (HCC) Start: 04-17-2025 End: 04-17-2025 ambulatory [facility] Facility:[facility] Start: 04-06-2025 ambulatory Adele Chavarria cility:[facility] Start: 04-06-2025 Registered Referred Adele Gusman MD -[facility] Start: 03-30-2025 End: 03-30-2025 Patient encounter procedure Daya PEREZ [facility] Work Phone: Start: 03-30-2025 End: 03-30-[address] Vadim Florence DO Work Phone: [facility] Work Phone: Start: 03-30-2025 End: 03-30-2025 [facility] Start: 03-30-2025 End: 03-30-2025 ambulatory [facility] Facility:[facility] Start: 03-24-2025 End: 03-24-[address] Dillan Santiago MD Work Phone: -[facility] Start: 03-24-2025 End: 03-24-[address] Adele Gusman MD -[facility] Work Phone: Start: 03-23-2025 End: 03-23-2025 Departed Referred Adele Gusman MD [facility] Start: 03-23-2025 End: 03-23-2025 ambulatory Adele MEEHAN Facility:[facility] Start: 03-19-2025 End: 03-19-2025 Telephone encounter Kentrell Montgomery MSW Navigation Start: 03-09-2025 Non-patient / Non-visit Dr. Vadim munoz MD -[facility] Start: 03-09-2025 End: 03-09-[address] Vadim Florence DO Work Phone: [facility] Work Phone: Start: 03-09-2025 End: 03-09-[address] Garfield Yo MD -[facility] Work Phone: Start: 03-09-2025 End: 03-09-2025 ambulatory [facility] Facility:[facility] Start: 03-04-2025 End: 03-19-2025 Evaluation and management of inpatient Dr. Garfield Yo MD -Transitional Care Unit Start: 03-04-2025 Non-patient / Non-visit Dr. Jessica Tran MD -[facility] Work Phone: Start: 03-03-2025 Non-patient / Non-visit Dr. Jessica Tran MD -[facility] Work Phone: Start: 03-03-2025 End: 03-04-2025 Admission to same day surgery center Dillan Santiago MD Work Phone: Geriatrics Comment on above: Michaela Hip surgery Start: 03-03-2025 End: 03-04-2025 ambulatory Dillan Santiago MD Work Phone: Geriatrics Start: 03-02-2025 Non-patient / Non-visit Dr. Jessica Tran MD -[facility] Work Phone: Start: 03-01-2025 ambulatory Allison Tran Facility [facility] Start: 03-01-2025 End: 03-04-2025 Evaluation and management of inpatient Dr. Roro Long DO -Medical Surgical 3 Work Phone: Start: 02-27-2025 End: 03-02-2025 Telephone encounter Kentrell Montgomery HAND SIZER Navigation Start: 02-24-2025 End: 02-25-2025 Refill Dillan Santiago MD Work Phone: Geriatrics Comment on above: Refill Request Start: 02-22-2025 End: 02-22-2025 Follow-up encounter Walt Robles APRN.OCEAN EXPORT COORDINATOR Work Phone: [facility] Start: 02-19-2025 End: 02-19-2025 Telephone encounter Walt Robles APRN.OCEAN EXPORT COORDINATOR Work Phone: [facility] Comment on above: Clinical Update Start: 02-19-2025 End: 02-19-2025 ambulatory DILLAN SANTIAGO Facility:[facility] Start: 02-19-2025 End: 02-19-2025 Patient encounter procedure Walt Robles APRN.OCEAN EXPORT COORDINATOR Work Phone: [facility] Comment on above: Recurrent UTI (urina ry tract infection) (Primary Dx) Start: 02-18-2025 End: 04-20-2025 Follow-up encounter Dillan Santiago MD Work Phone: [facility] [place] Start: 02-18-2025 End: 02-27-2025 ambulatory Dillan Santiago MD Work Phone: Geriatrics Comment on above: Concern for future c are Start: 02-18-2025 End: 02-18-2025 Patient encounter procedure Mariposa Salinas APRN.OCEAN EXPORT COORDINATOR Work Phone: [facility] [place] Comment on above: Impacted cerumen of right ear (Primary Dx) Start: 02-17-2025 End: 02-17-2025 ambulatory DILLAN SANTIAGO Facility:[facility] Start: 02-04-2025 End: 02-04-2025 [facility] Start: 02-04-2025 End: 02-04-2025 Office consultation new/estab [...] Request Start: 01-24-2025 ambulatory DILLAN SANTIAGO Facility:1 [id number] Start: 01-24-2025 End: 01-24-2025 Subsequent hospital visit by physician [facility] Angelita Franz 1 Work Phone: [facility] [...] Start: 12-31-2024 End: 01-01-2025 Refill Mariposa Older STEEL MANAGER.OCEAN EXPORT COORDINATOR Work Phone: [facility] [place] Comment on above: Refill Request Start: 12-23-2024 End: 12-25-2024 Telephone encounter Tom Baltazar PA-C Work Phone: Urology Comment on above: [facility] Start: 12-23-2024 End: 12-23-2024 [facility] Facility:[facility] Start: 12-23-2024 End: 12-23-2024 Patient encounter procedure Tom Baltazar PA-C Work Phone: Urology Comment on above: Retention of urine, unspecified (Primary Dx); Self-catheterizes urinary bladder; Urinary problem Start: 12-15-2024 End: 12-15-2024 Refill Mariposa Older STEEL MANAGER.OCEAN EXPORT COORDINATOR Work Phone: [facility] [place] Comment on above: Refill Request Start: 12-12-2024 End: 12-15-2024 Refill Mariposa Older STEEL MANAGER.OCEAN EXPORT COORDINATOR Work Phone: [facility] [place] Comment on above: Refill Request Start: 12-10-2024 [...] 12-10-2024 [facility] Facility:[facility] Start: 11-17-2024 End: 11-17-2024 ambulatory MARIPOSA OLDER Facility:[facility] Start: 11-11-2024 End: 11-21-2024 Refill Mariposa Older STEEL MANAGER.OCEAN EXPORT COORDINATOR Work Phone: [facility] [place] Comment on above: Refill Request clonazePAM refill Start: 11-05-2024 End: 11-05-2024 Patient encounter procedure Mariposa Older STEEL MANAGER.OCEAN EXPORT COORDINATOR Work Phone: [facility] [place] Comment on above: Encounter to [facility] (Primary Dx); Anxiety and depression; Hypothyroidism, unspecified type; Balance disorder; Ambulates with cane; Concern about memory; Self-catheterizes urinary bladder; Unable to void; Assistance needed for bathing; Lipid screening; Urinary problem Start: 11-05-2024 End: 11-05-2024 ambulatory DILLAN SANTIAGO Facility:[facility] Start: 11-05-2024 End: 11-06-2024 Refill Mariposa Older STEEL MANAGER.OCEAN EXPORT COORDINATOR Work Phone: [facility] [place] Comment on above: Med Change Request Start: 01-17-2024 ambulatory Ludin Boland ty:[facility] Start: 01-17-2024 End: 01-17-2024 ambulatory [facility] Work Phone: Start: 01-17-2024 End: 01-17-2024 [facility] [address] Work [...] et rgnt auto w/o microscopy Dasha Plata APRN.CNP Work Phone: Start: 01-24-2025 MRI 3D BRAIN [...] Start: 05-06-2028 Diabetes Screening Diabetes Screenin g [facility] Start: 11-17-2027 Diabetes Screening Diabetes Screenin g [facility] Start: 06-03-2026 RSV Vaccine (1 - 1-d ose 75+ series) RSV Vaccine (1 - 1-dose 75+ series) [facility] Comment on above: Postponed from 08/17 (Declined at this time) Start: 10-26-2025 End: 10-26-2025 Patient encounter procedure 10/26/2025 10:00 AM EST Office Visit Podiatry [address] [place], [place] [id number] Deana Klein [address] [place] [address] bilateral toenails Podiatry Comment on above: bilateral toenails Start: 07-20-2025 Influenza vaccination C [facility] Start: 07-17-2025 End: 10-16-2025 CBC W Auto Differential panel - Blood [facility] Work Phone: Comment on above: Expected: 07/17/2025 , Expires: 10/16/2025 Start: 07-17-2025 End: 07-17-2025 Patient encounter procedure 07/17/2025 11:20 AM EDT Office Visit Internal [facility] [place] [address] [place] [address] Dillan Santiago MD [address] [place] [address] 3 Month F/U [facility] [place] Comment on above: 3 Month F/U Start: 07-14-2025 End: 07-14-2025 Patient encounter procedure 07/14/2025 10:00 AM EDT Office Visit Podiatry [address] [place], [place] [id number] Deana Klein [address] [place] [address] bilateral toenails/very thick Podiatry Comment on above: bilateral toenails/v jaxson thick Start: 06-20-2025 Verification routine [facility] Start: 06-20-2025 Admission procedure [facility] Start: 06-20-2025 Bacteria identified in Urine by Culture Urine Culture [facility] Start: 06-20-2025 Hospital admission, emergency, from emergency room, medical nature [facility] Start: 06-20-2025 [facility] Start: 06-03-2025 End: 06-03-2025 Patient encounter procedure 06/03/2025 11:00 AM EDT Office Visit Geriatrics [address] [place] [address] Dillan Santiago MD [address] [place] [address] 4 wk follow up Geriatrics Comment on above: 4 wk follow up Start: 05-25-2025 End: 05-25-2025 Patient encounter procedure 05/25/2025 8:00 AM EDT Office Visit Cardiology [address] [place] [address] Acute heart failure, unspecified heart failure type (HCC) [I50.9] Cardiology Comment on above: Acute heart failure, unspecified heart failure type (HCC) [I50.9] Start: 05-17-2025 Bacteria identified in Urine by Culture Urine Culture [facility] Start: 05-17-2025 End: 05-17-2025 [facility] Start: 05-17-2025 [facility] Start: 05-06-2025 End: 08-05-2025 Comprehensive metabolic 2000 panel - Serum or Plasma [facility] Comment on above: Expected: 05/06/2025 , Expires: 08/05/2025 Start: 05-06-2025 End: 08-05-2025 Hemoglobin A1c in Blood [facility] Comment on above: Expected: 05/06/2025 , Expires: 08/05/2025 Start: 05-06-2025 End: 08-05-2025 Natriuretic peptide.B prohormone N-Terminal [Mass/volume] in Serum or Plasma [facility] Comment on above: Expected: 05/06/2025 , Expires: 08/05/2025 Start: 05-06-2025 End: 05-06-2025 Patient encounter procedure 05/06/2025 11:30 AM EDT Office Visit Geriatrics [address] [place] [address] Dillan Santiago MD [address] [place] [address] 3 mo follow up Geriatrics Comment on above: 3 mo follow up Start: 03-19-2025 Removal of urinary catheter [facility] Start: 03-19-2025 Patient discharge [facility] Start: 03-18-2025 Development of care plan [facility] Start: 03-16-2025 [facility] Start: 03-14-2025 [facility] Start: 03-11-2025 [facility] Start: 03-11-2025 Incentive spirometry [facility] Start: 03-10-2025 Recommendation to co ntinue with treatment [facility] Start: 03-06-2025 [facility] Start: 03-05-2025 Speech therapy management [facility] Start: 03-05-2025 Development of care plan [facility] Start: 03-05-2025 Developing a treatme nt plan [facility] Start: 03-05-2025 Speech therapy assessment [facility] Start: 03-04-2025 End: 03-04-2025 Contact precautions [facility] Start: 03-04-2025 Admission procedure [facility] Start: 03-04-2025 Introduction of urin clay catheter [facility] Start: 03-04-2025 Measuring intake and output [facility] Start: 03-04-2025 Patient referral to dietitian [facility] Start: 03-04-2025 Referral to occupati onal therapist [facility] Start: 03-04-2025 Referral to service [facility] Start: 03-04-2025 Verification routine [facility] Start: 03-04-2025 Vital signs measurements [facility] Start: 03-04-2025 End: 03-04-2025 [facility] Start: 03-04-2025 Following clinical p athway protocol [facility] Start: 03-04-2025 Patient discharge [facility] Start: 03-04-2025 Application of device [facility] Start: 03-03-2025 [facility] Start: 03-03-2025 [facility] Start: 03-03-2025 [facility] Start: 03-03-2025 [facility] Start: 03-03-2025 [facility] Start: 03-03-2025 [facility] Start: 03-03-2025 [facility] Start: 03-02-2025 [facility] Start: 03-02-2025 [facility] Start: 03-02-2025 [facility] Start: 03-02-2025 [facility] Start: 03-02-2025 [facility] Start: 03-02-2025 Provision of overbed trapeze [facility] Start: 03-02-2025 Recommendation to co ntinue with treatment [facility] Start: 03-02-2025 End: 03-02-2025 [facility] Start: 03-02-2025 Application of device W [facility] Start: 03-02-2025 Assessment of risk o f venous thromboembolism [facility] Start: 03-02-2025 Catheterization of vein [facility] Start: 03-02-2025 Exercises [facility] Start: 03-02-2025 Following clinical p athway protocol [facility] Start: 03-02-2025 Introduction of urin clay catheter [facility] Start: 03-02-2025 Measuring intake and output [facility] Start: 03-02-2025 Neurovascular assessment [facility] Start: 03-02-2025 Patient education [facility] Start: 03-02-2025 Procedure discontinued [facility] Start: 03-02-2025 Provision of activit y privileges [facility] Start: 03-02-2025 Referral to occupati onal therapist [facility] Start: 03-02-2025 Referral to service [facility] Start: 03-02-2025 Vital signs measurements [facility] Start: 03-02-2025 Wound care [facility] Start: 03-01-2025 Application of ice c ollar, cap or bag [facility] Start: 03-01-2025 Assessment of risk o f venous thromboembolism [facility] Start: 03-01-2025 Skin care [facility] Start: 03-01-2025 [facility] Start: 03-01-2025 Assessment of risk o f venous thromboembolism [facility] Start: 03-01-2025 Catheterization of vein [facility] Start: 03-01-2025 Consultation [facility] Start: 03-01-2025 Consultation for treatment [facility] Start: 03-01-2025 Following clinical p athway protocol [facility] Start: 03-01-2025 Inhalation therapy procedure [facility] Start: 03-01-2025 Insertion of cathete r into peripheral vein [facility] Start: 03-01-2025 Measuring intake and output [facility] Start: 03-01-2025 Oxygen therapy [facility] Start: 03-01-2025 Providing care accor ding to standard [facility] Start: 03-01-2025 Referral to occupati onal therapist [facility] Start: 03-01-2025 Referral to service [facility] Start: 03-01-2025 [facility] Start: 03-01-2025 Hospital admission, emergency, from emergency room, medical nature [facility] Start: 03-01-2025 Verification routine [facility] Start: 03-01-2025 Admission procedure [facility] Start: 03-01-2025 End: 03-02-2025 [facility] Start: 03-01-2025 [facility] Start: 02-18-2025 End: 02-18-2025 Patient encounter procedure 02/18/2025 10:20 AM EDT Office Visit [facility] [place] [address] [place] [address] Mariposa Salinas APRN.[employer]INATOR [address] [place], [place] [id number] ear lavage [facility] [place] Comment on above: ear lavage Start: 02-04-2025 End: 05-06-2025 Thyrotropin [Units/volume] in Serum or Plasma THYROID STIMULATING HORMONE Lab Routine Expected: 02/04/2025, Expires: 05/06/2025 [facility] Work Phone: Comment on above: Expected: 02/04/2025 , Expires: 05/06/2025 Start: 02-04-2025 End: 02-04-2025 Patient encounter procedure 02/04/2025 11:20 AM EDT Office Visit [facility] [place] [address] [place], [place] [id number] Mariposa Salinas APRN.[employer] [address] [place], [place] [id number] 3 month follow up [facility] [place] Comment on above: 3 month follow up Start: 01-24-2025 End: 01-24-2025 Patient encounter procedure 01/24/2025 12:30 PM EST Appointment [facility] [address] [place] [address] MRI BRAIN W QUANT WO IVCON, Cognitive impairment, mild, so stated [G31.84], MRI 3D BRAIN QUANT, Cognitive impairment, mild, so stated [G31.84] RADIO [facility] Comment on above: MRI BRAIN W QUANT WO IVCON, Cognitive impairment, mild, so stated [G31.84], MRI 3D BRAIN QUANT, Cognitive impairment, mild, so stated [G31.84] Start: 12-30-2024 End: 12-30-2024 Patient encounter procedure 12/30/2024 9:30 AM EST Office Visit Urology [address] [address] Tom Baltazar PA-C [address] [place] [address] 1 YR F/U Urology Comment on above: 1 YR F/U Start: 12-23-2024 End: 12-23-2024 Patient encounter procedure 12/23/2024 10:00 AM EST Office Visit Urology [address] [place] [address] Tom Baltazar PA-C [address] [place] [address] Self-catheterizes urinary bladder [Z78.9] Urology Comment on above: Self-catheterizes ur inary bladder [Z78.9] Start: 12-10-2024 End: 12-10-2024 Patient encounter procedure 12/10/2024 12:30 PM EST Office Visit Geriatrics [address] [place] [address] Dillan Santiago MD [address] [place] [address] Self-catheterizes urinary bladder [Z78.9] Geriatrics Comment on above: Self-catheterizes ur inary bladder [Z78.9] Start: 11-19-2024 Advance Directive Discussion Advance Directive Discussion [facility] Start: 11-19-2024 Medicare Advantage A nnual Wellness Visit Medicare Advantage Annual Wellness Visit [facility] Start: 11-05-2024 End: 02-04-2025 CBC panel - Blood by Automated count COMPLETE BLOOD COUNT Lab Routine Concern about memory Expected: 11/05/2024, Expires: 02/04/2025 [facility] Comment on above: Expected: 11/05/2024 , Expires: 02/04/2025 Start: 11-05-2024 End: 02-04-2025 Cobalamin (Vitamin B12) [Mass/volume] in Serum or Plasma VITAMIN B12 Lab Routine Concern about memory Expected: 11/05/2024, Expires: 02/04/2025 [facility] Comment on above: Expected: 11/05/2024 , Expires: 02/04/2025 Start: 11-05-2024 End: 02-04-2025 Comprehensive metabolic 2000 panel - Serum or Plasma COMPREHENSIVE METABOLIC PANEL Lab Routine Concern about memory Lipid screening Expected: 11/05/2024, Expires: 02/04/2025 [facility] Comment on above: Expected: 11/05/2024 , Expires: 02/04/2025 Start: 11-05-2024 End: 02-04-2025 Lipid 1996 panel - Serum or Plasma LIPID PANEL BASIC Lab Routine Lipid screening Expected: 11/05/2024, Expires: 02/04/2025 [facility] Work Phone: Comment on above: Expected: 11/05/2024 , Expires: 02/04/2025 Start: 11-05-2024 End: 02-04-2025 Thyrotropin [Units/volume] in Serum or Plasma THYROID STIMULATING HORMONE Lab Routine Concern about memory Hypothyroidism, unspecified type Expected: 11/05/2024, Expires: 02/04/2025 [facility] Comment on above: Expected: 11/05/2024 , Expires: 02/04/2025 Start: 11-05-2024 End: 02-04-2025 Thyroxine (T4) free [Mass/volume] in Serum or Plasma T4 FREE/FREE THYROXINE Lab Routine Concern about memory Hypothyroidism, unspecified type Expected: 11/05/2024, Expires: 02/04/2025 [facility] Comment on above: Expected: 11/05/2024 , Expires: 02/04/2025 Start: 11-05-2024 End: 02-04-2025 Triiodothyronine (T3) Free [Mass/volume] in Serum or Plasma T3, FREE Lab Routine Concern about memory Hypothyroidism, unspecified type Expected: 11/05/2024, Expires: 02/04/2025 [facility] Comment on above: Expected: 11/05/2024 , Expires: 02/04/2025 Start: 07-20-2024 Covid-19 Vaccine ( season) Covid-19 Vaccine ( season) [facility] Start: 07-20-2024 Influenza vaccination Influenza Vacc ine (#1) [facility] Start: 02-09-2024 Patient referral [facility] Work Phone: Start: 01-17-2024 Radiologic examinati on of knee XR knee LT 4V [facility] Start: 02-28-2020 Pneumococcal Vaccine : 50+ (2 of 2 - PCV) Pneumococcal Vaccine: 50+ (2 of 2 - PCV) [facility] Start: 2015 RSV Vaccine (1 - 1-d ose 75+ series) RSV Vaccine (1 - 1-dose 75+ series) [facility] Start: 01-14-2009 Shingrix Vaccine (2 of 3) Bran grix Vaccine (2 of 3) [facility] Start: 2005 Screening for osteoporosis Bone Dens ity Screening [facility] Start: 1985 Diabetes Screening Diabetes Screenin g [facility] Start: 1959 Urine microalbumin profile DTa P,Tdap,Td Vaccine (1 - Tdap) [facility] Start: 1958 Anxiety Screening Anxiety Screening [facility] Start: 1958 Depression Screening Depression Scre ening [facility] Anion gap in Serum o r Plasma [facility] Anion gap in Serum o r Plasma [facility] Anion gap in Serum o r Plasma [facility] Anion gap in Serum o r Plasma [facility] Anion gap in Serum o r Plasma [facility] Bacteria identified in Urine by Culture BACTERIAL CULTURE, URINE Microbiology Routine Urinary frequency Ordered: 02/19/2025 [facility] Work Phone: Comment on above: Ordered: 02/19/2025 BUN/Creatinine ratio [facility] BUN/Creatinine ratio [facility] BUN/Creatinine ratio [facility] BUN/Creatinine ratio [facility] BUN/Creatinine ratio [facility] Calcium [Mass/volume ] in Serum or Plasma [facility] Calcium [Mass/volume ] in Serum or Plasma [facility] Calcium [Mass/volume ] in Serum or Plasma [facility] Calcium [Mass/volume ] in Serum or Plasma [facility] Calcium [Mass/volume ] in Serum or Plasma [facility] Carbon dioxide, tota l [Moles/volume] in Central venous blood [facility] Carbon dioxide, tota l [Moles/volume] in Central venous blood [facility] Carbon dioxide, tota l [Moles/volume] in Central venous blood [facility] Carbon dioxide, tota l [Moles/volume] in Central venous blood [facility] Carbon dioxide, tota l [Moles/volume] in Central venous blood [facility] Creatinine [Mass/vol ume] in Serum or Plasma [facility] Creatinine [Mass/vol ume] in Serum or Plasma [facility] Creatinine [Mass/vol ume] in Serum or Plasma [facility] Creatinine [Mass/vol ume] in Serum or Plasma [facility] Creatinine [Mass/vol ume] in Serum or Plasma [facility] End: 05-06-2026 Echocardiography ECHO [facility] Acute heart failure, unspecified heart failure type (HCC) 1 Occurrences starting 05/06/2025 until 05/06/2026 [facility] Work Phone: Comment on above: 1 Occurrences starti ng 05/06/2025 until 05/06/2026 Erythrocyte mean corpuscular volume determination [facility] Erythrocyte mean corpuscular volume determination [facility] Erythrocyte mean corpuscular volume determination [facility] Erythrocyte mean corpuscular volume determination [facility] Erythrocyte mean corpuscular volume determination [facility] Glucose [Mass/volume ] in Serum or Plasma [facility] Glucose [Mass/volume ] in Serum or Plasma [facility] Glucose [Mass/volume ] in Serum or Plasma [facility] Glucose [Mass/volume ] in Serum or Plasma [facility] Glucose [Mass/volume ] in Serum or Plasma [facility] Hematocrit [Volume Fraction] of Blood [facility] Hematocrit [Volume Fraction] of Blood [facility] Hematocrit [Volume Fraction] of Blood [facility] Hematocrit [Volume Fraction] of Blood [facility] Hematocrit [Volume Fraction] of Blood [facility] Hemoglobin [Mass/vol ume] in Blood [facility] Hemoglobin [Mass/vol ume] in Blood [facility] Hemoglobin [Mass/vol ume] in Blood [facility] Hemoglobin [Mass/vol ume] in Blood [facility] Hemoglobin [Mass/vol ume] in Blood [facility] Leukocytes [#/volume ] in Blood [facility] Leukocytes [#/volume ] in Blood [facility] Leukocytes [#/volume ] in Blood [facility] Leukocytes [#/volume ] in Blood [facility] Leukocytes [#/volume ] in Blood [facility] Mean corpuscular hemoglobin concentration determination [facility] Mean corpuscular hemoglobin concentration determination [facility] Mean corpuscular hemoglobin concentration determination [facility] Mean corpuscular hemoglobin concentration determination [facility] Mean corpuscular hemoglobin concentration determination [facility] Mean corpuscular hemoglobin determination [facility] Mean corpuscular hemoglobin determination [facility] Mean corpuscular hemoglobin determination [facility] Mean corpuscular hemoglobin determination [facility] Mean corpuscular hemoglobin determination [facility] Measurement of renal function [facility] Measurement of renal function [facility] Measurement of renal function [facility] Measurement of renal function [facility] Measurement of renal function [facility] End: 01-09-2026 MR Brain WO contrast MRI BRAIN W QUANT WO IVCON Radiology Routine Cognitive impairment, mild, so stated 1 Occurrences starting 12/10/2024 until 01/09/2026 [facility] Work Phone: Comment on above: 1 Occurrences starti ng 12/10/2024 until 01/09/2026 End: 01-09-2026 MR Unspecified body region 3D post processing MRI 3D BRAIN QUANT Radiology Routine Cognitive impairment, mild, so stated 1 Occurrences starting 12/10/2024 until 01/09/2026 [facility] Comment on above: 1 Occurrences starti ng 12/10/2024 until 01/09/2026 Neutrophil count [facility] Neutrophil count [facility] Neutrophil count [facility] Neutrophil count [facility] Neutrophil count [facility] Neutrophil percent differential count [facility] Neutrophil percent differential count [facility] Neutrophil percent differential count [facility] Neutrophil percent differential count [facility] Neutrophil percent differential count [facility] Patient Education [facility] Work Phone: Patient referral [facility] Work Phone: Platelets [#/volume] in Blood [facility] Platelets [#/volume] in Blood [facility] Platelets [#/volume] in Blood [facility] Platelets [#/volume] in Blood [facility] Platelets [#/volume] in Blood [facility] Potassium measurement [facility] Potassium measurement [facility] Potassium measurement [facility] Potassium measurement [facility] Potassium measurement [facility] Red blood cell count [facility] Red blood cell count [facility] Red blood cell count [facility] Red blood cell count [facility] Red blood cell count [facility] Red cell distributio n width determination [facility] Red cell distributio n width determination [facility] Red cell distributio n width determination [facility] Red cell distributio n width determination [facility] Red cell distributio n width determination [facility] Removal impacted cer umen irrigation/lvg unilat AMBULATORY EAR LAVAGE/IRRIGATION Procedures Routine Impacted cerumen of right ear Ordered: 02/18/2025 [facility] Work Phone: Comment on above: Ordered: 02/18/2025 Serum chloride measurement [facility] Serum chloride measurement [facility] Serum chloride measurement [facility] Serum chloride measurement [facility] Serum chloride measurement [facility] Sodium measurement [facility] Sodium measurement [facility] Sodium measurement [facility] Sodium measurement [facility] Sodium measurement [facility] Urea nitrogen [Mass/volume] in Serum or Plasma [facility] Urea nitrogen [Mass/volume] in Serum or Plasma [facility] Urea nitrogen [Mass/volume] in Serum or Plasma [facility] Urea nitrogen [Mass/volume] in Serum or Plasma [facility] Urea nitrogen [Mass/volume] in Serum or Plasma [facility] Urine culture [facility] Urine culture [facility] Immunizations Immunization Date Immunization Notes Care Provider [facility] 10-31-2022 influenza (aIIV4) vaccine, age 65+ yr, quadrivalent, PF (FLUAD QUAD) Dillan Santiago MD Work Phone: [facility] 10-31-2022 influenza virus vacc ine, unspecified formulation Mariposa Salinas APRN.CNP Work Phone: [facility] 10-06-2021 influenza (aIIV4) vaccine, age 65+ yr, quadrivalent, PF (FLUAD QUAD) Dillan Santiago MD Work Phone: [facility] 02-27-2019 pneumococcal polysaccharide vaccine, [address] Vadim Florence DO Work Phone: [facility] 08-19-2009 pneumococcal conjuga te vaccine, [address] Vadim Florence DO Work Phone: [facility] 11-19-2008 zoster vaccine, live Dillan Santiago MD Work Phone: [facility] Payers Date Payer Category Payer Self-pay [id number] 2023 Medicare UHC MEDICARE UHC MEDICARE ADVANTAGE PPO [id number] 2023-Present [phone] [address] [address] [place] [address] PPO [id number] 2023 Medicare (Managed Care) [facility] MED[facility] CARE ADVANTAGE PPO [id number] 2023 Medicare [id number] 1940 Unknown [id number] [id number]. 2.627 Medicare [id number] Medicare Medicare Part A & B [id number] 2A [id number] Unknown Replaced by [facility] [employer] [id number] Unknown [id number] 2.16.840.1.905633.3.579. 2.462 Unknown [id number] 2.16.840.1.464876.3.579. 2.462 Unknown [id number] 2.16.840.1.923049.3.579. 2.462 Unknown [id number] 2.16.840.1.434816.3.579. 2.462 Unknown [id number] 2.16.840.1.234227.3.579. 2.462 Unknown [id number] 2.16.840.1.566328.3.579. 2.462 Unknown [id number] 2.16.840.1.381393.3.579. 2.462 Unknown [id number] 2.16.840.1.708579.3.579. 2.462 Unknown [id number] 2.16.840.1.993172.3.579. 2.462 Unknown [id number] 2.16.840.1.225892.3.579. 2.462 Unknown [id number] 2.16.840.1.177185.3.579. 2.462 Unknown [id number] 2.16.840.1.685221.3.579. 2.462 Unknown [id number] 2.16.840.1.139510.3.579. 2.462 Unknown [id number] 2.16.840.1.416250.3.579. 2.462 Unknown [id number] 2.16.840.1.500363.3.579. 2.462 Unknown [id number] 2.16.840.1.878299.3.579. 2.462 Unknown [id number] 2.16.840.1.272801.3.579. 2.462 Unknown [id number] 2.16.840.1.579888.3.579. 2.462 Unknown [id number] 2.16.840.1.944179.3.579. 2.462 Unknown [id number] 2.16.840.1.566157.3.579. 2.462 Unknown [id number] 2.16.840.1.215022.3.579. 2.462 Unknown [id number] 2.16.840.1.207134.3.579. 2.462 Unknown [id number] 2.16.840.1.941933.3.579. 2.462 Unknown [id number] 2.16.840.1.108505.3.579. 2.462 Unknown [id number] 2.16.840.1.965829.3.579. 2.462 Unknown [id number] 2.16.840.1.169567.3.579. 2.462 Social History Date Type Detail Facility Tobacco smoking status KYIS Unknown if ever smoked [facility] Work Phone: Start: 11-04-2019 Never Smoker [facility] Start: 10-29-2019 No History [facility] Start: 10-29-2019 up to date / s hingle up to date [facility] Start: 1940 Sex Assigned At Female T he [facility] Start: 11-05-2024 End: 06-20-2025 Tobacco smoking status KYIS Never smoked tobacco [facility] Start: 11-05-2024 Tobacco use and exposure Smokeless tobacco non-user [facility] Start: 11-05-2024 End: 07-17-2025 Alcoholic beverage intake Lifetime non-drinker (finding) [facility] Start: 11-05-2024 End: 04-17-2025 History of Social function [facility] Start: 11-05-2024 End: 04-17-2025 Tobacco use panel [facility] Start: 10-13-2024 National Score (1-100), lower number is lower risk 72 [facility] Start: 1940 Sex assigned at Not on file [facility] Start: 12-10-2024 Education 15 [facility] Start: 03-01-2025 Tobacco smoking status NHIS Tobacco smoking consumption unknown (finding) [facility] Start: 03-01-2025 End: 03-12-2025 Sex Female (finding) [facility] Has the electric, gas, oil, or water company threatened to shut off services in your home in past 12Mo No [facility] Are you now , , , , never or living with a partner? [facility] How often to you hav e a drink containing alcohol? Never [facility] How hard is it for you to pay for the very basics like food, housing, medical care, and heating Not very hard [facility] Do you feel stress - tense, restless, nervous, or anxious, or unable to sleep at night because your mind is troubled all the time - these days [OSQ] Very much [facility] (I/We) worried whether (my/our) food would run out before (I/we) got money to buy more. Never true [facility] NEGATED: Highlighted row Not [facility] Medical Equipment Procedure Code Equipment Code Equipment Origin al Text Equipment Identifier Dates ORIF, hip, using Gamma nail ([id number]) Orthopaedic bone screw, non-bioabsorbable, sterile [id number] FDA Start: 03-02-2025 ORIF, hip, using Gamma nail ([id number]) Femur nail, sterile [id number] FDA Start: 03-02-2025 Goals Date Patient Goal Desired Activity /State Functional Status Date Assessment Result Facility 04-17-2025 Total score [AUDIT-C] 0 04/17/20 25 9:21 AM EDT User, Lynne [facility] 04-17-2025 How often to you hav e a drink containing alcohol? Never 04/17/2025 9:21 AM EDT User, Lynne Never [facility] 04-17-2025 Functional status Patient does n ot drink 04/17/2025 9:21 AM EDT User, Lynne Patient does not drink [facility] 04-17-2025 How often do you hav e 6 or more drinks on 1 occasion? Never 04/17/2025 9:21 AM EDT UserLynne Never [facility] 03-19-2025 Functional status Chair [facility] Work Phone: 03-18-2025 Functional status Tolerates Activity Well [facility] Work Phone: 03-12-2025 Functional status Ambulates [facility] Work Phone: 03-11-2025 Functional status Tolerates Activity Fair [facility] Work Phone: 03-04-2025 Functional status Back to bed [facility] Work Phone: Mental Status Date Assessment Result Facility 05-17-2025 Cognitive function Voice/Name [facility] Work Phone: 03-19-2025 Cognitive function Voice/Name [facility] Work Phone: 03-12-2025 Cognitive function Cooperative [facility] Work Phone: 03-11-2025 Cognitive function Voice/Name [facility] Work Phone: 03-04-2025 Cognitive function Voice/Name [facility] Work Phone: 01-17-2025 Cognitive function Voice/Name [facility] Work Phone: Clinical Notes 11-05-2024 to 07-31-2025 Telephone Encounter - Nusrat Crespo LPN - 07/31/2025 10:20 AM EDTTelephone Encounter - Nusrat Crespo LPN - 07/31/2025 10:20 AM EDTTelephone Encounter - Raegan Moore MA - 07/31/2025 9:58 AM EDT Note Date & Type Note Facility 07-31-2025 Telephone encounter Note Called Savanah With [facility]. Savanah aware that we do not have urology staff in clinic today nor do we carry 10 FR catheters. Per Savanah they will send patient to emergency room for replacement of catheter. Nusrat Crespo LPN [facility] 07-31-2025 Miscellaneous Notes Called Savanah With [facility]. Savanah aware that we do not have urology staff in clinic today nor do we carry 10 FR catheters. Per Savanah they will send patient to emergency room for replacement of catheter. Nusrat Crespo LPN Patient was visited by home health today. She has a 10 turkish catheter which was unintentionally removed. They do not have any supplies to replace the catheter and neither does the patient. Home Health asking if the office has any and if the patient can be seen today to replace it? Please contact Savanah back at [phone]. documented in this encounter [facility] 07-31-2025 Telephone encounter Note Patient daughter Maribeth called this SW and asked for numbers for other home care agencies ie. [facility], [facility], [facility]. Sw provided daughter with numbers for these locations. [facility] is helping now with in home care needs. Daughter notes the cost is high due to number of hours needed. Daughter would like to compare agency costs. [facility] 07-31-2025 Miscellaneous Notes Patient daughter Maribeth called this SW and asked for numbers for other home care agencies ie. [facility], [facility], [facility]. Sw provided daughter with numbers for these locations. [facility] is helping now with in home care needs. Daughter notes the cost is high due to number of hours needed. Daughter would like to compare agency costs. documented in this encounter [facility] 07-31-2025 Telephone encounter Note Patient was visited by home health today. She has a 10 turkish catheter which was unintentionally removed. They do not have any supplies to replace the catheter and neither does the patient. Home Health asking if the office has any and if the patient can be seen today to replace it? Please contact [place] at [phone]. [facility] 07-28-2025 Note . MICRO - Microbiology PROCEDURE: Urine Culture [...] Locations *1: This test was performed at: [facility], [address] [place] [address], [id number]- , [facility] 07-27-2025 Telephone encounter Note Ok for delay Mariposa Salinas APRN.CNP [facility] 07-27-2025 Telephone encounter Note Agree with plan and pcp ok to follow. Thank you Mariposa Salinas APRN.CNP [facility] 07-27-2025 Miscellaneous Notes Ok for delay Mariposa Salinas APRN.CNP Larisa from [facility] calling will begin OT visits next week, delay of care since scheduling was full. No need for return call. documented in this encounter [facility] 07-27-2025 Miscellaneous Notes Agree with plan and pcp ok to follow. Thank you Mariposa Salinas APRN.CNP Rula LEONARD [facility] calls with speech therapy plan of care. Speech therapy will see patient starting 07/19 1 times a week times 5 weeks for cognitive communication. No call back needed unless questions. Jagruti Veloz RN documented in this encounter [facility] 07-24-2025 Telephone encounter Note Rula LEONARD from [facility] calls with speech therapy plan of care. Speech therapy will see patient starting 07/19 1 times a week times 5 weeks for cognitive communication. No call back needed unless questions. Jagruti Veloz RN [facility] 07-24-2025 Telephone encounter Note Larisa from [facility] calling will begin OT visits next week, delay of care since scheduling was full. No need for return call. [facility] 07-24-2025 Telephone encounter Note Raul- [facility]- phoned to report patient had a missed PT appt today. Reports daughter sent text stating patient had a last minute appt today that was at the same time as PT appt, and rescheduled for early next week. [facility] 07-24-2025 Miscellaneous Notes Raul- [facility]- phoned to report patient had a missed PT appt today. Reports daughter sent text stating patient had a last minute appt today that was at the same time as PT appt, and rescheduled for early next week. documented in this encounter [facility] 07-21-2025 Telephone encounter Note Duplicate Radha Haro LPN [facility] 07-21-2025 Miscellaneous Notes Duplicate Radha Haro LPN documented in this encounter [facility] 07-21-2025 Telephone encounter Note Sw spoke with patient daughter and she requests that SW either mail or My Chart the medical alert button options. Sw will send medical alert button options to patient daughter. Sw and daughter also discussed [facility] and [facility] as other home care director options to compare prices to [facility]. Maribeth notes that she will compare prices of other home care director agencies. [facility] coming [facility] to see patient for PT and daughter is still waiting to hear when fci from [facility] will be seeing patient. [facility] 07-21-2025 Miscellaneous Notes Sw spoke with patient daughter and she requests that SW either mail or My Chart the medical alert button options. Sw will send medical alert button options to patient daughter. Sw and daughter also discussed [facility] and [facility] as other home care director options to compare prices to [facility]. Maribeth notes that she will compare prices of other home care director agencies. [facility] to see patient for PT and daughter is still waiting to hear when [facility] from [facility] will be seeing patient. Sw left message for return call in regards to medical alert button options for patient. documented in this encounter [facility] 07-17-2025 Telephone encounter Note Sw left message for return call in regards to medical alert button options for patient. [facility] 07-17-2025 Note HNO ID: [id number] Author: DILLAN SANTIAGO MD Service: ? Author Type: Physician Type: Progress Notes Filed: 07/17/2025 13:07 Note Text: Reason for Visit Follow up HPI Michaela Brandt is an 84-year-old female, with a history of dementia, presenting with multiple falls, cystitis, and pressure ulcers. Michaela was admitted to [facility] on 06/20 and discharged on 06/25. She [...] care by her insurance and stayed at [facility] for a couple of weeks, but did not receive much physical therapy. Michaela's daughter is hopeful that with physical therapy at home, Michaela will improve. Michaela has a home health aide from [facility] who helps with showers and getting Michaela [...] mg tab(s) Catheter (SELF-CATHETER, FEMALE) 14 Fr [facility] Health Maintenance DTaP,Tdap,Td Vaccine(1 - Tdap) Bone [...] to ensure resolution and rule out other (more content not included)... [facility] 07-17-2025 History of Presen t illness Narrative Reason for Visit Follow up HPI Michaela Brandt is an 84-year-old female, with a history of dementia, presenting with multiple falls, cystitis, and pressure ulcers. Michaela was admitted to [facility] on 06/20 and discharged on 06/25. She [...] care by her insurance and stayed at [facility] for a couple of weeks, but did not receive much physical therapy. Michaela's daughter is hopeful that with physical therapy at home, Michaela will improve. Michaela has a home health aide from [facility] who helps with showers and getting Michaela [...] mg tab(s) Catheter (SELF-CATHETER, FEMALE) 14 Fr [facility] Health Maintenance DTaP,Tdap,Td Vaccine(1 - Tdap) Bone [...] excuse any unintended typographical errors. Recording using [employer] software for draft documentation of the visit was discussed with the patient/authorized fundraising sale representative; all questions welcomed and answered. Patient/authorized fundraising sale representative agreed to proceed Dillan Santiago MD [1] Social History Tobacco Use Smoking status: Never Smokeless tobacco: Never Vaping Use Vaping status: Never Used Substance Use Topics Alcohol use: Never Drug use: Never documented in this encounter [facility] 07-17-2025 Instructions Dillan Santiago MD - 07/17/2025 12:28 PM EDT We discussed your recent hospitalization and current [...] You have a Lizarraga catheter in place. intermediate will assist with catheter care. We discussed your pressure sores and wound care: - You have stage 2 pressure sores on your buttocks. These require regular care to prevent worsening. - I am sending a referral to the wound care clinic at [facility]. Please call the clinic to schedule an appointment as soon as possible. - intermediate will assist with wound care, including cleaning [...] follow the therapy schedule they provide. - intermediate and your caregiver will assist with mobility [...] This prescription will be sent to your [facility] pharmacy. We discussed additional recommendations: - Consider [...] appointment with the wound care clinic at [facility]. - Follow up with fci for catheter care, wound care, and enema [...] to help you recover and regain strength. documented in this encounter [facility] 07-16-2025 Telephone encounter Note Left message on [employer] VM with verbal ok. Mike Guo MA [facility] 07-16-2025 Miscellaneous Notes Left message on secure VM with verbal ok. Mike Guo MA Noted and agree Regards, Dillan Santiago MD German with [facility] calls to let provider know [...] as well. German requests call back at [phone]. Kecia Red RN documented in this encounter [facility] 07-16-2025 Telephone encounter Note Noted and agree Regards, Dillan Santiago MD [facility] 07-16-2025 Telephone encounter Note German with [facility] calls to let provider know [...] as well. German requests call back at [phone]. Kecia Red RN [facility] 07-15-2025 Telephone encounter Note Patient has been identified by name and date of : Yes Patient phones for refill(s): Requested Prescriptions Pending Prescriptions Disp Refills levothyroxine (EUTHYROX) 50 mcg tablet 90 tablet 3 Sig: Take 1 tablet by mouth once daily. Date of last office visit in primary care: 04/17/2025 Date of next office visit in primary care: 07/15/2025 Please advise. Thank you. Radha Haro LPN. [facility] 07-15-2025 Miscellaneous Notes Patient has been identified by name and date of : Yes Patient phones for refill(s): Requested Prescriptions Pending Prescriptions Disp Refills levothyroxine (EUTHYROX) 50 mcg tablet 90 tablet 3 Sig: Take 1 tablet by mouth once daily. Date of last office visit in primary care: 04/17/2025 Date of next office visit in primary care: 07/15/2025 Please advise. Thank you. Radha Haro LPN. documented in this encounter [facility] 07-15-2025 Telephone encounter Note Patient has been identified [...] of next office visit in primary care: 07/17/2025 Please advise. Thank you. Radha Haro LPN. [facility] 07-15-2025 Miscellaneous Notes Patient has been identified by name and [...] of next office visit in primary care: 07/17/2025 Please advise. Thank you. Radha Haro LPN. documented in this encounter [facility] 07-14-2025 Note HNO ID: [id number] Author: DEANA KLEIN, ? Service: ? Author [...] digits 1-5 b/l Skin temperature warm to film sound coordinator proximal to distal b/l Hair growth [...] based on q8 modifier. Deana Klein DPM (more content not included)... [facility] 07-14-2025 History of Presen t illness Narrative Consultation requested by Dr. Santiago for an [...] digits 1-5 b/l Skin temperature warm to film sound coordinator proximal to distal b/l Hair growth [...] modifier. Deana Klein DPM Podiatry [address] [facility] [address] Dept: [phone] Dept [1] Social History Tobacco Use Smoking status: Never Smokeless tobacco: Never Vaping Use Vaping status: Never Used Substance Use Topics Alcohol use: Never Drug use: Never AMB ROOMING INTAKE FLOWSHEET DATA Patient presents with: Left Foot - nail deformity , New, nail care Right Foot - New, nail deformity , nail care Sirisha Pena LPN documented in this encounter [facility] 07-14-2025 Note HNO ID: [id number] Author: SIRISHA PENA LPN Service: ? Author Type: Licensed Nurse Type: Progress Notes Filed: 07/14/2025 11:46 Note Text: AMB ROOMING INTAKE FLOWSHEET DATA Patient presents with: Left Foot - nail deformity , New, nail care Right Foot - New, nail deformity , nail care Sirisha Pena LPN [facility] 07-14-2025 Telephone encounter Note Left detailed message on identified VM. Mike Guo MA [facility] 07-14-2025 Miscellaneous Notes Left detailed message on identified VM. Mike Guo MA Yes will follow, Dillan Patel MD Berta with [facility] calling and asking if provider is agreeable to signing and following patient for PT, OT and ST orders? Berta states patient was discharged from [facility]. Had UTI, weakness. Please call Berta back at [phone]. Porsha Vasquez RN documented in this encounter [facility] 07-13-2025 Telephone encounter Note Yes will follow, Dillan Patel MD [facility] 07-13-2025 Telephone encounter Note Berta with [facility] calling and asking if provider is agreeable to signing and following patient for PT, OT and ST orders? Berta states patient was discharged from [facility]. Had UTI, weakness. Please call Berta back at [phone]. Porsha Vasquez RN [facility] 06-25-2025 Note [facility] 06-20-2025 Discharge summary Note Date/Time June 20, 2025 1:35pm [facility] Medical Records Department [address] [place] [address] Emergency Department Summary 06/20/25 MR#: [id number] Acct: [id number] Name: MICHAELA BRANDT Rep #:[id number] : [...] They note that she is on Eliquis. [facility] Medical History Closed intertrochanteric fracture of [...] Patient follow commands as she was at [facility] Skin: Warm, dry, intact patient does [...] showed sinus rhythm rate of 72 bpm. MI interval was 200. Did discuss case with [...] 89.2 H Lymph % (Auto) 3.5 L [place] % (Auto) 5.6 Eos % (Auto) 0.0 [...] Clarity Clear Urine pH 5.0 Ur Specific [place] 1.015 Urine Protein 30 H Urine Glucose [...] findings. Chronic findings as described. Reading Location: [facility] Cervical Spine CT 06/20/25 08:48 IMPRESSION: NO ACUTE CERVICAL FRACTURE. DEGENERATIVE CHANGES. Reading Location: [facility] Chest/Abdomen/Pelvis CT 06/20/25 08:48 IMPRESSION: CT [...] ultrasound recommended for further evaluation. 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 There is still evidence of fracture lucency and cortical irregularity. No hardware complication noted. 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 Reading Location: [id number] Knee X-Ray 06/20/25 09:50 IMPRESSION: Tricompartmental arthrosis with chondrocalcinosis, no demonstrated acute fracture or suspicious osseous lesion Surgical hardware in the patella from previous ORIF free of complication Reading Location: [id number] Knee X-Ray 06/20/25 09:50 IMPRESSION: DEGENERATIVE OSTEOARTHROSIS. NO ACUTE FINDINGS. Reading Location: [facility] Discharge Plan Triage Chief Complaint: Fall [...] MD [Primary Care Provider] - Print Language: Turkish Disposition Disposition: Acute Care Hospital [facility] What to do if you have Problems For any increased pain, shortness of breath, bleeding, nausea or vomiting, chestpain, or any unexpected problems, contact your Primary Care Provider. Call [facility] ([phone]) or report to the closest Emergency Room. Call 911 if necessary. 06/20/25 1335 <Electronically signed by Wesley Jones DO> Cosigner Signature (if applicable): CC: Dr. Dillan Santiago MD ~ Signed [facility] Work Phone: 1(766) 909-699208-02-2025 History and physical note [facility] Medical Records Department [address] [place] [address] H&P Exam - Hospitalist 06/20/25 1425 MR#: [id number] Acct: [id number] Name: CRYSTALMICHAELADayron MCKINLEY Rep #:[id number] : 1940 84 From: Cindy Molina MD PCP: Dr. Dillan Santiago MD Status:ADM I N Location: MS3 [id number] HPI - General General Date of Admission: 06/20/25 Date of Service: 06/20/25 Chief Complaint: Knee pain after fall HPI Narrative MICHAELA BRANDT, is a 84-year-old female history of hypothyroidism, dementia, urinary self catheterization, hypertension, depression, on Eliquis who presentedto [facility] ED 06/20/2025 after a fall. Reportedly [...] yet. No fevers or other acute complaints [facility] Medical History (Updated 06/20/25 @ 14:55 by [...] Narrative General: Alert, knows she is at [facility], initially thought year was 2028 but [...] 89.2 H, Lymph % (Auto) 3.5 L, [place] % (Auto) 5.6, Eos % (Auto) 0.0, [...] Clarity Clear, Urine pH 5.0, Ur Specific [place] 1.015, Urine Protein 30 H, Urine Glucose [...] findings. Chronic findings as described. Reading Location: [facility] Cervical Spine CT 06/20/25 08:48 IMPRESSION: NO ACUTE CERVICAL FRACTURE. DEGENERATIVE CHANGES. Reading Location: [facility] Chest/Abdomen/Pelvis CT 06/20/25 08:48 IMPRESSION: CT [...] ultrasound recommended for further evaluation. 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 There is still evidence of fracture lucency and cortical irregularity. No hardware complication noted. 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 Reading Location: [id number] Knee X-Ray 06/20/25 09:50 IMPRESSION: Tricompartmental arthrosis with chondrocalcinosis, no demonstrated acute fracture or suspicious osseous lesion Surgical hardware in the patella from previous ORIF free of complication Reading Location: [facility] Knee X-Ray 06/20/25 09:50 IMPRESSION: DEGENERATIVE OSTEOARTHROSIS. NO ACUTE FINDINGS. Reading Location: [id number] Assessment & Plan Assessment/Plan (1) Fall: (2) [...] home medications #DVT ppx: Patient chronically on Carrolquis Cindy Molina MD Charges/Coding Visit Charges Inpatient E&M: 02617 Init Hosp L2 06/20/25 1455 Cosigner Signature (if applicable): CC: Dr. Dlilan Santiago MD; Dr. Cindy Molina MD~ Signed [facility]08-02-2025 Discharge summary [facility] Medical Records Department [address] [place] [address] Emergency Department Summary 06/20/25 MR#: [id number] Acct: [id number] Name: MICHAELA BRANDT Rep #:[id number] : [...] They note that she is on Eliquis. [facility] Medical History Closed intertrochanteric fracture of [...] Patient follow commands as she was at [facility] Skin: Warm, dry, intact patient does [...] showed sinus rhythm rate of 72 bpm. MI interval was 200. Did discuss case with [...] 89.2 H Lymph % (Auto) 3.5 L [place] % (Auto) 5.6 Eos % (Auto) 0.0 [...] Clarity Clear Urine pH 5.0 Ur Specific [place] 1.015 Urine Protein 30 H Urine Glucose [...] findings. Chronic findings as described. Reading Location: [facility] Cervical Spine CT 06/20/25 08:48 IMPRESSION: NO ACUTE CERVICAL FRACTURE. DEGENERATIVE CHANGES. Reading Location: [id number] Chest/Abdomen/Pelvis CT 06/20/25 08:48 IMPRESSION: CT chest: [...] ultrasound recommended for further evaluation. 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 There is still evidence of fracture lucency and cortical irregularity. No hardware complication noted. 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 Reading Location: [facility] Knee X-Ray 06/20/25 09:50 IMPRESSION: Tricompartmental arthrosis with chondrocalcinosis, no demonstrated acute fracture or suspicious osseous lesion Surgical hardware in the patella from previous ORIF free of complication Reading Location: [id number] Knee X-Ray 06/20/25 09:50 IMPRESSION: DEGENERATIVE OSTEOARTHROSIS. NO ACUTE FINDINGS. Reading Location: [facility] Discharge Plan Triage Chief Complaint: Fall [...] MD [Primary Care Provider] - Print Language: Turkish Disposition Disposition: Acute Care Hospital [facility] What to do if you have Problems For any increased pain, shortness of breath, bleeding, nausea or vomiting, chestpain, or any unexpected problems, contact your Primary Care Provider. Call [facility] ([phone]) or report tothe closest Emergency Room. Call 911 if necessary. 06/20/25 1335 Cosigner Signature (if applicable): CC: Dr. Dillan Santiago MD ~ Signed [facility]08-02-2025 Radiology Diagnostic study note [facility] Imaging Services [address] [place] [address] Elbow min 3 Views MR#: [id number] Acct: [id number] Name: MICHAELA BRANDT Rep #: [id number] : 1940 F 84 From: Ari Salmon MD PCP: Dr. Dillan Santiago MD Status: REG E R Study:Elbow min 3 Views Date of Exam: Exam# [id number] Ordering Dr: Deena Jones DO PROCEDURE: ELBOW MIN 3 VIEWS 06/20/2025 REASON FOR EXAM: FALL TECHNIQUE: ELBOW MIN 3 VIEWS FINDINGS: Bones: Bones are demineralized. No demonstrated acute fracture or suspicious osseous lesion Joints: Well-preserved Soft tissues: No suspicious soft tissue swelling or joint effusion Other: RAD/Elbow min 3 Views IMPRESSION: Osteopenia, no demonstrated fracture or joint space abnormalities Reading Location: [id number] CC: Dr. Dillan Santiago MD; Dr. Wesley Jones DO ~ Crew Leader/Control Room Operator: Signed [facility]08-02-2025 Radiology Diagnostic study note [facility] Imaging Services [address] [place] [address] Knee 1 or 2 Views MR#: [id number] Acct: [id number] Name: MICHAELA BRANDT Rep #: [id number] : 1940 F 84 From: Jo Rabago MD PCP: Dr. Dillan Santiago MD Status: REG E R Study:Knee 1 or 2 Views Date of Exam: Exam# [id number] Ordering Dr: Deena Jones DO PROCEDURE: KNEE [...] DEGENERATIVE OSTEOARTHROSIS. NO ACUTE FINDINGS. Reading Location: [facility] CC: Dr. Dillan Santiago MD; Dr. Wesley Jones DO ~ Crew Leader/Control Room Operator: Signed [facility]08-02-2025 Radiology Diagnostic study note [facility] Imaging Services [address] [place] [address] HIP, UNI W/ Pelvis 2-3 Views MR#: [id number] Acct: [id number] Name: MICHAELA BRANDT Rep #: [id number] : 1940 F 84 From: Ari Salmon MD PCP: Dr. Dillan Santiago MD Status: REG E R Study:HIP, UNI W/ Pelvis 2-3 Views Date of Ex am: 06/20/25 Exam# [id number] Ordering Dr: Deena Jones DO PROCEDURE: HIP, [...] joint arthrosis, no acute abnormality. Reading Location: [id number] CC: Dr. Dillan Santiago MD; Dr. Wesley Jones DO ~ Crew Leader/Control Room Operator: Signed [facility]08-02-2025 Radiology Diagnostic study note [facility] Imaging Services [address] [place] [address] Knee 1 or 2 Views MR#: [id number] Acct: [id number] Name: MICHAELA BRANDT Rep #: [id number] : 1940 F 84 From: Ari Salmon MD PCP: Dr. Dillan Santiago MD Status: REG E R Study:Knee 1 or 2 Views Date of Exam: Exam# [id number] Ordering Dr: Deena Jones DO PROCEDURE: KNEE [...] previous ORIF free of complication Reading Location: [facility] CC: Dr. Dillan Santiago MD; Dr. Wesley Jones DO ~ Crew Leader/Control Room Operator: Signed [facility]08-02-2025 Radiology Diagnostic study note [facility] [facility] [address] [place] [id number] Chest, Abd, Pel w/Contrast MR#: [id number] Acct: [id number] Name: MICHAELA BRANDT Rep #: [id number] : 1940 F 84 From: Jo Rabago MD PCP: Dr. Dillan Santiago MD Status: REG E R Study:CT Chest, Abd, Pel w/Contrast Date of E xam: 06/20/25 Exam# [id number] Ordering Dr: Deena Jones DO PROCEDURE: CT [...] ultrasound recommended for further evaluation. Reading Location: [id number] CC: Dr. Dillan Santiago MD; Dr. Wesley Jones DO ~ Crew Leader/Control Room Operator: Signed [facility]08-02-2025 Radiology Diagnostic study note [facility] [address] [place] [address] Spine Cervical without Contras MR#: [id number] Acct: [id number] Name: MICHAELA BRANDT Rep #: [id number] : 1940 F 84 From: Jo Rabago MD PCP: Dr. Dillan Santiago MD Status: REG E R Study:Spine Cervical without Contras Date of Exam: 06/20/25 Exam# [id number] Ordering Dr: Deena Jones DO PROCEDURE: SPINE [...] ACUTE CERVICAL FRACTURE. DEGENERATIVE CHANGES. Reading Location: [facility] CC: Dr. Dillan Santiago MD; Dr. Wesley Jones DO ~ Crew Leader/Control Room Operator: Signed [facility]08-02-2025 Radiology Diagnostic study note [facility] [address] [place] [id number] Brain/Head without Contrast MR#: [id number] Acct: [id number] Name: MICHAELA BRANDT Rep #: [id number] : 1940 F 84 From: Jo Rabago MD PCP: Dr. Dillan Santiago MD Status: REG E R Study:Brain/Head without Contrast Date of Exa m: 06/20/25 Exam# [id number] Ordering Dr: Deena Jones DO EXAM: BRAIN/HEAD [...] findings. Chronic findings as described. Reading Location: [facility] CC: Dr. Dillan Santiago MD; Dr. Wesley Jones DO ~ Crew Leader/Control Room Operator: Signed [facility]07-31-2025 Telephone encounter Note* Telephone Encounter - Gabi Mcelroy RN - 06/18/2025 1:43 PM EDT Called and left a detailed voicemail notifying Brissa from [facility] of providers message. Clinic phone number was left in case she had any questions. Gabi Mcelroy RN [facility]07-31-2025 Miscellaneous Notes* Telephone Encounter - Gabi Meclroy RN - 06/18/2025 1:43 PM EDT Called and left a detailed voicemail notifying Brissa from [facility] of providers message. Clinic phone number was left in case she had any questions. Gabi Mcelroy RN * Telephone Encounter - Dillan Santiago MD - 06/18/2025 1:35 PM EDT Noted and agree Regards, Dillan Santiago MD * Telephone Encounter - Gabi Mcelroy RN - 06/17/2025 4:59 PM EDT Brissa from [facility] called in to let provider know [...] now. Gabi Mcelroy RN documented [facility] Telephone encounter Note * Telephone Encounter - Dillan Santiago MD - 06/18/2025 1:35 PM EDT Noted and agree Regards, Dillan Santiago MD [facility]07-30-2025 Telephone encounter Note* Telephone Encounter - Gabi Mcelroy RN - 06/17/2025 4:59 PM EDT Brissa from [facility] called in to let provider know that she went out to recertify the Pt. She reports nursing will be seeing the Pt once a week for 6 weeks to monitor a stage 2 ulcer on the L buttock. She states it is 0.3 x 0.3, so it is almost healed. They are just putting Triad cream on it now. Gabi Mcelroy RN [facility]07-16-2025 NoteHNO ID: [id number] Author: DILLAN SANTIAGO MD Service: ? Author [...] a month ago, which was treated at [facility]. Michaela expresses reluctance to continue self-catheterization due to the risk of introducing infections and is considering a suprapubic catheter as an alternative. Michaela has not yet undergone an echocardiogram that was previously scheduled. She expresses a desire to reschedule the appointment. Michaela is also experiencing issues with thickened toenails, which are causing discomfort when wearing shoes. She has an appointment with a passenger car upholsterer apprentice next month for evaluation and treatment. Michaela [...] Michaela's daughter, who currently holds power of real estate attorney, is trying to prevent this. Michaela [...] of recurrent UTIs, most recently treated at [facility]. Currently self-catheterizing four times daily, which increases [...] with sleep. - Refill (more content not included)...[facility]07-16-2025 History of Present illness Narrative* Dillan [...] a month ago, which was treated at [facility]. Michaela expresses reluctance to continue self-catheterization due to the risk of introducing infections and is considering a suprapubic catheter as an alternative. Michaela has not yet undergone an echocardiogram that was previously scheduled. She expresses a desire to reschedule the appointment. Michaela is also experiencing issues with thickened toenails, which are causing discomfort when wearingshoes. She has an appointment with a passenger car upholsterer apprentice next month for evaluation and treatment. Michaela [...] Michaela's daughter, who currently holds power of real estate attorney, is trying to prevent this. Michaela [...] of recurrent UTIs, most recently treated at [facility]. Currently self-catheterizing four times daily, which increases [...] excuse any unintended typographical errors. Recording using [employer] software for draft documentation of the visit was discussed with the patient/authorized fundraising sale representative; all questions welcomed and answered. Patient/authorized fundraising sale representative agreed to proceed Spent more than 40 mins face to face with patient Dillan Santiago MD documented in this encounterPike [facility]07-[facility]-2025 Instructions* Patient Instructions* Dillan Santiago MD [...] This condition requires specialized care from a passenger car upholsterer apprentice, as regular nail trimming is not sufficient. - You already have an appointment scheduled with podiatry in June. At that visit, they will assess your nails and provide appropriate treatment. - I documented the findings in your chart to ensure the passenger car upholsterer apprentice is aware of the condition and can [...] please contact our office. documented in this encounterP[facility]07-[facility]-2025 Telephone encounter Note * Telephone Encounter - Mike Guo MA - 05/26/2025 11:28 AM EDT Forms completed and faxed back to # provided: [phone]. Mike Guo MA [facility]07-08-2025 Miscellaneous Notes* Telephone Encounter - Mike Guo MA - 05/26/2025 11:28 AM EDT Forms completed and faxed back to # provided: [phone]. Mike Guo MA * Telephone Encounter - Mike Guo MA - 05/20/2025 5:02 PM EDT Forms given to PCP for review/signature. Mike Guo MA * Telephone Encounter - Jagruti Veliz - 05/20/2025 10:51 AM EDT Patient's daughter dropped off forms that need filled out and faxed to TOBIAS Wolf, att [phone]. Forms given to nurse. Please assist. documented in this encounterPike [facility]07-02-2025 Telephone encounter Note * Telephone Encounter - Mike Guo MA - 05/20/2025 5:02 PM EDT Forms given to PCP for review/signature. Mike Guo MA [facility]07-02-2025 Telephone encounter Note* Telephone Encounter - Jose AlfredoRandyJagruti - 05/20/2025 10:51 AM EDT Patient's daughter dropped off forms that need filled out and faxed to [facility], TOBIAS Cueto, att [phone]. Forms given to nurse. Please assist. [facility]06-29-2025 Discharge summary [facility] Medical Records Department [address] [place] [address] Emergency Department Summary 05/17/25 MR#: [id number] Acct: [id number] Name: MICHAELA BRANDT Rep #:[id number] : [...] her occupational and physical therapy and some fci. They also have cameras in and keep [...] MDM MDM Narrative Medical decision making narrative: [id number] female with dementia lives at home with [...] 78.8 H Lymph % (Auto) 14.1 L [place] % (Auto) 5.1 Eos % (Auto) 0.9 Baso % (Auto) 0.6 Absolute Neuts (auto) 6.9 Absolute Lymphs (auto) 1.24 Nucleated RBC % 0 Sodium 142 Potassium 3.9 Chloride 104 Carbon Dioxide 26.5 Anion Gap 12 BUN 15 Creatinine 0.96 Est GFR (MDRD) Non-Af 58 L BUN/Creatinine Ratio 15.6 Glucose 97 Calcium 9.0 Urine Color Yellow Urine Clarity Clear Urine pH 6.0 Ur Specific [place] 1.020 Urine Protein 30 H Urine Glucose [...] improving or return if worse. Print Language: Turkish Disposition Disposition: Home, Self Care What to do if you have Problems For any increased pain, shortness of breath, bleeding, nausea or vomiting, chestpain, or any unexpected problems, contact your Primary Care Provider. Call [facility] ([phone]) or report tothe closest Emergency Room. Call 911 if necessary. 05/17/25 1137 Cosigner Signature (if applicable): CC: Dr. Dillan Santiago MD ~ Signed [facility]06-24-2025 Telephone encounter Note* Telephone Encounter - [...] in how pt is taking the lasix. [facility]06-24-2025 Miscellaneous Notes* Telephone Encounter - Michaelle [...] lasix as ordered, 2 times a week? RegardsDillan MD * Telephone Encounter - Michaelle Tai, RN - 05/07/2025 11:08 AM EDT [facility] reports pt has fine crackles in the bases of her lungs again. Reports patientdenies Shortness of Breath, and the swelling has decreased. No fever. Otherwise, besides pt's anxiety she feels great. Asking if pcp wants to order a CXR? If pcp wants to order a CXR please fax order to [facility] # [phone] Please advise and phone Ivsi with reply: [phone] documented in this encounterPike [facility] Hospital06-23-2025 Telephone encounter Note * Telephone Encounter - Dillan Santiago MD - 05/11/2025 5:08 PM EDT Do not want chest xr just yet Is she taking her lasix as ordered, 2 times a week? Regards, Dillan Santiago MD [facility]06-20-2025 Telephone encounter Note* Telephone Encounter - Michaela Davila MA - 05/08/2025 1:22 PM EDT Daughter Maribeth notified. [facility]06-20-2025 Miscellaneous Notes* Telephone Encounter - Michaela [...] Regards, Dillan Santiago MD documented in this encounterPike [facility] Hospital06-20-2025 Telephone encounter Note * Telephone Encounter [...] next couple months. Regards, Dillan Santiago MD [facility]06-19-2025 Telephone encounter Note* Telephone Encounter - Mike Guo MA - 05/07/2025 2:29 PM EDT The following approved medication requests have been transmitted electronically. Requested Prescriptions Signed Prescriptions Disp Refills busPIRone (BUSPAR) 5 mg tablet 60 tablet 3 Sig: Take 1 tablet by mouth two times a day. Authorizing Provider: DILLAN SANTIAGO MA [facility]06-19-2025 Miscellaneous Notes* Telephone Encounter - Mike [...] her on buspar. Regards, Dillan Santiago MD * Telephone Encounter - Kecia Red RN - 05/06/2025 4:50 PM EDT [facility] calls to let provider know that patient [...] Please review and advise. Kecia Red, ZACHARIAH documented in this encounterPike Community Hospital06-19-2025 Telephone encounter Note * Telephone Encounter - Michaelle Tai RN - 05/07/2025 11:08 AM EDT [facility] reports pt has fine crackles in the bases of her lungs again. Reports patientdenies Shortness of Breath, and the swelling has decreased. No fever. Otherwise, besides pt's anxiety she feels great. Asking if pcp wants to order a CXR? If pcp wants to order a CXR please fax order to [facility] # [phone] Please advise and phone [facility] with reply: [phone] [facility]06-18-2025 Telephone encounter Note* Telephone Encounter - Dillan Santiago MD - 05/06/2025 7:08 PM EDT I started her on buspar. Regards, Dillan Santiago MD [facility]06-18-2025 Telephone encounter Note* Telephone Encounter - [...] Please review and advise. Kecia Red, ZACHARIAH [facility]06-18-2025 NoteHNO ID: [id number] Author: DILLAN SANTIAGO MD Service: ? Author [...] is currently receiving home care services, including fci, physical therapy, and occupational therapy. She has aides assisting her from [phone] and [id number] daily. Due to financial constraints, the family [...] mg tablet Catheter (SELF-CATHETER, FEMALE) 14 Fr [facility] Health Maintenance DTaP,Tdap,Td Vaccine(1 - Tdap) Bone [...] prolonged self-catheterization. Patient expresses (more content not included)...[facility]06-18-2025 History of Present illness Narrative* Dillan [...] is currently receiving home care services, including fci, physical therapy, and occupational therapy. She has aides assisting her from [phone] and [phone] daily. Due to financialconstraints, the family is [...] mentions having a gentleman friend who visits [facility] a week. Social History Tobacco Use Smoking [...] mg tablet Catheter (SELF-CATHETER, FEMALE) 14 Fr [facility] Health Maintenance DTaP,Tdap,Td Vaccine(1 - Tdap) Bone [...] of 6 months. - Prescription sent to [facility] pharmacy for 3 months supply. 5. Edema, [...] any unintended typographical errors. Recording using [employer] software for draft documentation of the visit was discussed with the patient/authorized fundraising sale representative; all questions welcomed and answered. Patient/authorized fundraising sale representative agreed to proceed Dillan Santiago MD documented in this encounterPike [facility] Hospital06-16-2025 Telephone encounter Note * Telephone Encounter - Pamela Power MA - 05/04/2025 4:11 PM EDT Detailed message on secure voicemail. Pamela Power MA May 04, 2025 4:11 PM [facility]06-16-2025 Miscellaneous Notes* Telephone Encounter - Pamela [...] - 05/04/2025 8:45 AM EDT [facility]ni with [facility] calls in regards to TE from 04/24: Solange Craig RN MG 04/24/25 11:13 AM Note Brissa from [facility] is calling due to she saw patient [...] CXR. Nisha Clayton LPN documented in this encounterPike Community Hospital06-16-2025 Telephone encounter Note * Telephone Encounter - Dillan Santiago MD - 05/04/2025 4:01 PM EDT I dont usually do the catheters and have not done for her. I would like Urology to take care of this Regards, Dillan Santiago MD [facility]06-16-2025 Miscellaneous Notes* Telephone Encounter - Dillan Santiago MD - 05/04/2025 4:01 PM EDT I dont usually do the catheters and have not done for her. I would like Urology to take care of this Regards, Dillan Santiago MD * Telephone Encounter - Nusrat Crespo LPN - 05/04/2025 9:05 AM EDT Images from the original note were not included. Tom Baltazar PA-C You3 days ago Yea I though Silas was doing this VADIM [place], [place], P[place]erlin You Tom Baltazar PA-C5 days ago KURTIS Hayes, do you want this sent to PCP to address? Patient was seen previously by you you once and was to [facility]. Nusrat Crespo LPN * Telephone Encounter - Sarah Donahue [...] of orders. Please fax to Savanah at [facility] [phone]. JAIRON notes faxed through [employer]. Ophelia Ansari MA documented in this encounterPike Community Hospital06-16-2025 Telephone encounter Note * Telephone Encounter - Dillan Santiago MD - 05/04/2025 4:00 PM EDT Verbal ok to order all these labs chest x-ray, BNP, CMP, and A1C for patient? Regards, Dillan Santiago MD [facility]06-16-2025 Telephone encounter Note* Telephone Encounter - Nusrat Crespo LPN - 05/04/2025 9:05 AM EDT Images from the original note were not included. Tom Baltazar PA-C You3 days ago Yejitendra I though Silas was doing this [place]ADIM [place], [place], NAS[place] You Tom Baltazar PA-C5 days ago KURTIS Hayes, do you want this sent to PCP to address? Patient was seen previously by you you once and was to [facility]. Nusrat Crespo LPN [facility]06-16-2025 Telephone encounter Note* Telephone Encounter - Nisha Clayton LPN - 05/04/2025 8:45 AM EDT [facility]ni with [facility] calls in regards to TE from 04/24: Solange Craig RN MG 04/24/25 11:13 AM Note Brissa from [facility] is calling due to she saw patient [...] above labs and CXR. Nisha Clayton LPN [facility]06-14-2025 Telephone encounter Note* Telephone Encounter - Radha Haro LPN - 05/02/2025 9:55 AM EDT Spoke to [facility], Patient just picked up Celexa 20mg RX yesterday, 05/01/2025, she has refills remaining. Radha Haro LPN [facility]06-14-2025 Miscellaneous Notes* Telephone Encounter - Radha Haro LPN - 05/02/2025 9:55 AM EDT Spoke to [facility], Patient just picked up Celexa 20mg RX yesterday, 05/01/2025, she has refills remaining. Radha Haro LPN documented in this encounterPike [facility] Hospital06-13-2025 Telephone encounter Note * Telephone Encounter - Mariposa Salinas APRN.OCEAN EXPORT COORDINATOR - 05/01/2025 4:36 PM EDT PDMP website checked and validated. All prescriptions have been APPROPRIATELY filled. No suspiciousactivity was identified. 05/01/2025 by Mariposa Salinas APRN.OCEAN EXPORT COORDINATOR [facility]06-13-2025 Miscellaneous Notes* Telephone Encounter - Mariposa Salinas APRN.CNP - 05/01/2025 4:36 PM EDT PDMP website checked and validated. All prescriptions have been APPROPRIATELY filled. No suspiciousactivity was identified. 05/01/2025 by Mariposa Salinas APRN.ARIEL * Telephone Encounter - Marisol Tomlinson MA [...] you. Marisol Tomlinson MA. documented in this encounterPike [facility] Hospital06-13-2025 Telephone encounter Note * Telephone Encounter [...] Please advise. Thank you. Marisol Tomlinson MA. [facility]06-09-2025 Telephone encounter Note* Telephone Encounter - Sarah Donahue RN - 04/27/2025 4:18 PM EDT JAIRON 12/23/24 [facility]06-09-2025 Telephone encounter Note* Telephone Encounter - [...] of orders. Please fax to Savanah at [facility] [phone]. JAIRON notes faxed through [employer]. Ophelia Ansari MA [facility]06-06-2025 Telephone encounter Note* Telephone Encounter - Gabi Mcelroy RN - 04/24/2025 4:02 PM EDT Pts daughter called in and was asking about if she should take her mother to [facility] ER or a [facility] ER. She states since she is affiliated with [facility] would it be in her best interest to just go to the [facility]. I told her that is up to her, but the closest one would be [place], [facility], or [place]. She said ifthey went to [facility] they could always get her transfer to a [facility] facility. I told her it really dependson what they find when they do blood work when she get there. She said she would talk it over with her . Gabi Mcelroy RN [facility]06-06-2025 Miscellaneous Notes* Telephone Encounter - Gabi Mcelroy RN - 04/24/2025 4:02 PM EDT Pts daughter called in and was asking about if she should take her mother to [facility] ER or a [facility] ER. She states since she is affiliated with [facility] would it be in her best interest to just go to the [facility]. I told her that is up to her, but the closest one would be [facility], [facility], or [place]. She said jay went to [facility] they could always get her transfer [...] - 04/24/2025 11:10 AM EDT Brissa from [facility] is calling due to she saw patient [...] called back with information. documented in this encounterPike Community Hospital06-06-2025 Telephone encounter Note * Telephone Encounter [...] all sx's. Daughter agreeable. Porsha Vasquez RN [facility]06-06-2025 Telephone encounter Note* Telephone Encounter - Mike Guo MA - 04/24/2025 1:33 PM EDT Patient active MyChart. Patient notified via [employer] message. Mike Guo MA [facility]06-06-2025 Miscellaneous Notes* Telephone Encounter - Mike Guo MA - 04/24/2025 1:33 PM EDT Patient active MyChart. Patient notified via [employer] message. Mike Guo MA * Telephone Encounter - Dillan Santiago MD - 04/24/2025 11:23 AM EDT Ordered as requested Regards, Dillan Santiago MD documented in this encounterPike Community Hospital06-06-2025 Telephone encounter Note * Telephone Encounter - Dillan Santiago MD - 04/24/2025 11:23 AM EDT Ordered as requested Regards, Dillan Santiago MD [facility]06-06-2025 Telephone encounter Note* Telephone Encounter - Solange Craig RN - 04/24/2025 11:10 AM EDT Brissa from [facility] is calling due to she saw patient [...] advise, nurse needs called back with information. [facility]06-04-2025 Telephone encounter Note* Telephone Encounter - Mckenzie Lombardo LPN - 04/22/2025 9:42 AM EDT Called and spoke to patients jossie Stahl, will forward message to Home health Mckenzie Lombardo LPN April 22, 2025 9:42 AM [facility]06-04-2025 Miscellaneous Notes* Telephone Encounter - Mckenzie [...] give her a little lasix. RegardsDillan MD * Telephone Encounter - Nisha Clayton [...] painful. Nisha Clayton LPN documented in this encounterPike Community Hospital06-03-2025 Telephone encounter Note * Telephone Encounter - Dillan Santiago MD - 04/21/2025 5:23 PM EDT Would consider Compression stockings to be put on her and lifting her legs If that does not work we can give her a little lasix. Regards, Dillan Santiago MD [facility]06-03-2025 Telephone encounter Note* Telephone Encounter - Nisha Clayton LPN - 04/21/2025 1:03 PM EDT Larisa with [facility] calls to report she saw pt today for evaluation. Lraisa reports OT will see pt once x [...] but foot isnot painful. Nisha Clayton LPN [facility]06-02-2025 Telephone encounter Note* Telephone Encounter - Gabi Mcelroy RN - 04/20/2025 6:39 PM EDT See TE from 04/20/25 My CAO with [facility] was going to have updated medication list faxed overto provider office. Gabi Mcelroy RN [facility]06-02-2025 Miscellaneous Notes* Telephone Encounter - Gabi Mcelroy RN - 04/20/2025 6:39 PM EDT See TE from 04/20/25 My CAO with [facility] was going to have updated medication list faxed overto provider office. Gabi Mcelroy RN * Telephone Encounter - Mike Guo MA - 04/17/2025 11:43 AM EDT TC to nurse at [facility] to obtain current med list. Unable to reach. Left detailed message for nurse to [facility]. PCP office needs updated med list. Mike Guo MA documented in this encounterPike Community Hospital06-02-2025 Telephone encounter Note * Telephone Encounter - Gabi Mcelroy RN - 04/20/2025 6:38 PM EDT Called and left a detailed voicemail notifying My CAO with [facility] of providers message. Clinic phone number was left in case she had any questions. Gabi Mcelroy RN [facility]06-02-2025 Miscellaneous Notes* Telephone Encounter - Gabi Mcelroy RN - 04/20/2025 6:38 PM EDT Called and left a detailed voicemail notifying My with [facility] of providers message. Clinic phone number was left in case she had any questions. Gabi Mcelroy RN * Telephone Encounter - Dillan Santiago MD - 04/20/2025 5:39 PM EDT Verbal ok for the same Regards, Dillan Santiago MD * Telephone Encounter - Gabi Mcelroy RN - 04/20/2025 5:11 PM EDT My with [facility] called and is notified of providers message. She voices understanding and reports that yes she does need the orders for the 16 turkish indwelling lizarraga. She states she can take a verbal order for that and we can leave a VM as her line is secure. She is also going to have her office fax over an updated medication list from when she was at the halfway when she is done with her note. Gabi Mcelroy RN * Telephone Encounter - Dillan Santiago MD - 04/20/2025 4:54 PM EDT Agree Does she need orders for the 16 turkish indwelling lizarraga? Thanks Regards, Dillan Santiago MD * Telephone Encounter - Josy Saucedo RN - 04/20/2025 4:03 PM EDT Call received from My, nurse at [facility], regarding orders for Pt (see below notation). [facility] nurse observed Pt self-cath, and she was not cleansing herself well. Pt's daughter is voicing concern about Pt's inability to do this at home. [facility] is requesting order for chronic indwelling lizarraga cathether, 16F. Last OV with urology - Tom Baltazar PA-C: 12/23/2024 [facility] phone: [facility] office phone: Fax number for orders: Josy Saucedo RN April 20, 2025 4:07 PM * Telephone Encounter - Katie Langston LPN - 04/20/2025 3:35 PM EDT My calling back she will fax list from the SNF and will have to update med list with her admission notes to [facility] and fax that when she is able. * Telephone Encounter - Gabi Mcelroy RN - 04/20/2025 3:14 PM EDT Called and left a message for My CAO with [facility] that if she has an updated medication list from when the Pt was in the halfway if she could fax that to Dr Santiago at [phone]. Gabi Mcelroy RN * Telephone Encounter - Gabi Mcelroy RN - 04/20/2025 2:50 PM EDT My with [facility]STRADA called in POC. She [...] soilage. Please call and advise. Gabi Mcelroy, ZACHARIAH [facility] Telephone encounter Note * Telephone Encounter - Dillan Santiago MD - 04/20/2025 5:39 PM EDT Verbal ok for the same Regards, Dillan Santiago MD [facility] Telephone encounter Note* Telephone Encounter - Gabi Mcelroy RN - 04/20/2025 5:11 PM EDT My CAO with [facility] called and is notified of providers message. She voices understanding and reports that yes she does need the orders for the 16 turkish indwelling lizarraga. She states she can take a verbal order for that and we can leave a VM as her line is secure. She is also going to have her office fax over an updated medication list from when she was at the halfway when she is done with her note. Gabi Mcelroy, RN [facility]06-02-[facility] Telephone encounter Note* Telephone Encounter - Dillan Santiago MD - 04/20/2025 4:54 PM EDT Agree Does she need orders for the 16 turkish indwelling lizarraga? Thanks Regards, Dillan Santiago MD [facility]06-02-[facility] Telephone encounter Note* Telephone Encounter - Josy Saucedo RN - 04/20/2025 4:03 PM EDT Call received from My, nurse at [facility], regarding orders for Pt (see below notation). [facility] nurse observed Pt self-cath, and she was not cleansing herself well. Pt's daughter is voicing concern about Pt's inability to do this at home. [facility] is requesting order for chronic indwelling lizarraga cathether, 16F. Last OV with urology - Tom Baltazar PA-C: 12/23/2024 My [facility] nurse phone: [facility] office phone: Fax number for orders: Josy Saucedo RN April 20, 2025 4:07 PM [facility] Telephone encounter Note* Telephone Encounter - Katie Langston LPN - 04/20/2025 3:35 PM EDT My calling back she will fax list from the SNF and will have to update med list with her admission notes to [facility] and fax that when she is able. [facility] Telephone encounter Note* Telephone Encounter - Gabi Mcelroy RN - 04/20/2025 3:14 PM EDT Called and left a message for My with [facility] that if she has an updated medication list from when the Pt was in the halfway if she could fax that to Dr Santiago at [phone]. Gabi Mcelroy RN [facility] Telephone encounter Note* Telephone Encounter - [...] an order for a lizarraga cath. My also reported Pt has 3 stage 2 [...] Please call and advise. Gabi Mcelroy, RN [facility]05-30-2025 Telephone encounter Note* Telephone Encounter - Dillan Santiago MD - 04/17/2025 5:33 PM EDT We discussed about letter and she said she will message me when needed Regards, Dillan Santiago MD [facility]05-30[facility] Miscellaneous Notes* Telephone Encounter - Dillan Santiago MD - 04/17/2025 5:33 PM EDT We discussed about letter and she said she will message me when needed Regards, Dillan Santiago MD * Telephone Encounter - Kentrell Montgomery MSW - 04/17/2025 3:00 PM EDT Sw spoke with patient daughter in regards to Home Health questions and also current housing AL options. Maribeth and Janna discussed [facility] for [facility]. Sw left message for [facility] referral line to call this Sw back to confirm if they will be serving patient home healthcare needs. Maribeth notes that [facility] will be providing home care director next week when patient stays at her apt. Maribeth notes that patient will then be [facility] Maribeth notes that she is working on getting bedroom ready at there home for patient to come and stay with he. There is a wait list at [facility]. Sw will let patient daughter know what she finds out from [facility]. Maribeth also mentioned a letter for her mom's current [address] apt, to see about being released from her housing there. Janna noted that she would send message to Dr. Santiago to see what she says about letter. * Telephone Encounter - Kentrell Montgomery MSW - 04/17/2025 1:49 PM EDT Sw tried call to patient daughter and vmail is full, unable to leave message. Sw will try call another time. * Telephone Encounter - Kentrell Montgomery MSW - 04/17/2025 12:57 PM EDT This Sw received SW consult and will work on reaching out to patient daughter to discuss social service needs. This Sw also notes that there is a message from today from [facility] noting orders for SN,PT,OT. It looks like Dr. Santiago agreed to [facility] patient. documented in this encounterP[facility]05-30-[facility]25 Telephone encounter Note * Telephone Encounter - Kentrell Montgomery MSW - 04/17/2025 3:00 PM EDT Sw spoke with patient daughter in regards to Home Health questions and also current housing AL options. Maribeth and Janna discussed that [facility] looks to be an option for home healthcare. Janna left message for [facility] referral line to call this Sw back to confirm if they will be serving patient home healthcare needs. Maribeth notes that [facility] will be providing home care director next week when patient stays at her apt. Maribeth notes that patient will then be coming to [facility] Maribeth notes that she is working on getting bedroom ready at there home for patient to come and stay with he. There is a wait list at [facility]. Janna will let patient daughter know what she finds out from [facility]. Maribeth also mentioned a letter for her mom's current [address] apt, to see about being released from her housing there. Janna noted that she would send message to Dr. Santiago to see what she says about letter. [facility] Telephone encounter Note* Telephone Encounter - Kentrell Montgomery MSW - 04/17/2025 1:49 PM EDT Sw tried call to patient daughter and vmail is full, unable to leave message. Sw will try call another time. [facility]-30[facility]25 NoteHNO ID: [id number] Author: DILLAN SANTIAGO MD Service: ? Author [...] until 03/04, followed by a stay at [facility] beginning on 03/19. Michaela is scheduled to be discharged from [facility] on Sunday. Her daughter has arranged for 16 hours of daily care for a week post-discharge and is exploring long-term care options, including assisted living facilities. iMchaela has developed pressure ulcers, described as bed [...] and balance issues. - Referral sent to [facility] for PT and OT. 2. 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 Healing is delayed, contributing to mobility issues. - Monitor healing progress through follow-up appointments. - Co (more content not included)...[facility]05-30-2025 Telephone encounter Note* Telephone Encounter - Kentrell Montgomery MSW - 04/17/2025 12:57 PM EDT This Sw received consult and will work on reaching out to patient daughter to discuss social service needs. This Sw also notes that there is a message from today from [facility] noting orders for SN,PT,OT. It looks like Dr. Santiago agreed to [facility]. [facility] History of Present illness Narrative* Dillan [...] until 03/04, followed by a stay at [facility] beginning on 03/19. Michaela is scheduled to be discharged from [facility] on Sunday. Her daughter has arranged for 16 hours of daily care for a week post-discharge and is exploring long-term care options, including assisted living facilities. Michaela has developed pressure ulcers, described as bed sores, which require management by a skillednurse. She [...] - PCV) Covid-19 Vaccine(2023- season) Advance Directive Discussion@ Review Of Systems [...] and balance issues. - Referral sent to [facility] for PT and OT. 2. [...] to be stage 2 ulcer - Ordered fci for wound care management. - Utilize hypochlorous [...] excuse any unintended typographical errors. Recording using [employer] software for draft documentation of the visit was discussed with the patient/authorized fundraising sale representative; all questions welcomed and answered. Patient/authorized fundraising sale representative agreed to proceed Dillan Santiago MD documented in this encounterPike [facility] Hospital05-30-2025 Instructions* Patient Instructions* Dillan Santiago MD [...] is a positive sign for healing. - intermediate will be arranged to clean and care [...] you have experienced in the past. - intermediate will assist with catheter care, including monthly [...] These were helpful during your stay at [facility]. - Mental Health: - You are experiencing [...] are awaiting an updated medication list from [facility] to confirm all current prescriptions and dosages. - Living Arrangements: - Your daughter is exploring assisted living options for you, including a facility in [facility]. This will require private pay for two [...] - A referral has been sent to [facility] for fci, PT, andOT. They will also assess your [...] support your care needs. Next Steps: - intermediate, PT, and OT will be arranged through [...] or any other concerns. documented in this encounterPike [facility] Hospital05-30-2025 Telephone encounter Note * Telephone Encounter - Mike Guo MA - 04/17/2025 11:43 AM EDT TC to nurse at [facility] to obtain current med list. Unable to reach. Left detailed message for nurse to [facility]. PCP office needs updated med list. Mike Guo MA [facility]05-30-2025 Telephone encounter Note* Telephone Encounter - Gabi Mcelroy RN - 04/17/2025 10:54 AM EDT Wes with [facility] called and is notified of providers message. She voices understanding. Gabi Mcelroy RN [facility] Miscellaneous Notes* Telephone Encounter - Gabi [...] back. Gabi Mcelroy RN documented in this encounterPike [facility] Hospital05-30-2025 Telephone encounter Note * Telephone Encounter - Dillan Santiago MD - 04/17/2025 10:43 AM EDT Will follow Dillan Patel MD [facility] Telephone encounter Note* Telephone Encounter - Gabi Mcelroy RN - 04/17/2025 10:02 AM EDT Wes with [facility] called in and reports they received a referral for SN/PT/OT. She is asking if provider will fallow. Please call back. Gabi Mcelroy, RN [facility]05-01-2025 Telephone encounter Note* Telephone Encounter - Dillan Santiago MD - 03/19/2025 4:55 PM EDT Thanks and noted Regards, Dillan Santiago MD [facility]05-01-2025 Miscellaneous Notes* Telephone Encounter - Dillan Santiago MD - 03/19/2025 4:55 PM EDT Thanks and noted Regards, Dillan Santiago MD * Telephone Encounter - Mckenzie Lombardo LPN - 03/19/2025 4:00 PM EDT Canceled appointment for tomorrow per patients daughter request. Mckenzie Lombardo LPN March 19, 2025 4:00 PM * Telephone Encounter - Kentrell Montgomery MSW - 03/19/2025 3:28 PM EDT Janna spoke with patient daughter Maribeth. Maribeth notes that patient is currently at [facility] right now. Transitioned there today. Maribeth notes that she needs to cancel patient appt with Dr. Santiago tomorrow. Janna notes that she will send message to Dr. Santiago regarding this need. Maribeth also noted that she is going to send My Chart message as well in regards to cancelling appt. Maribeth notes that the hospital had encouraged patient to go to [facility] for further care [facility] Daughter is trying to get with admissions at [facility] in regards to them saying that she is going there for 30 days and being placed in LTC and not Rehab. Daughter also notes that she has an appt next week with [facility] for financial planning. Maribeth also noted that she would like patient to see Dr. Santiago if and when she leaves [facility]. While in [place], patient will be followed by their provider. Janna did encourage patient daughter to also reach out to [facility] and [facility] for further support guidance regarding LTC planning. Janna will forward note to Dr. Santiago and her office in regards to appt cancellation need for tomorrow. documented in this encounterPike [facility] Hospital05-01-2025 Telephone encounter Note * Telephone Encounter - Mckenzie Lombardo LPN - 03/19/2025 4:00 PM EDT Canceled appointment for tomorrow per patients daughter request. Mckenzie Lombardo LPN March 19, 2025 4:00 PM [facility] Telephone encounter Note* Telephone Encounter - Kentrell Montgomery MSW - 03/19/2025 3:28 PM EDT Janna spoke with patient daughter Maribeth. Maribeth notes that patient is currently at [facility] right now. Transitioned there today. Maribeth notes that she needs to cancel patient appt with Dr. Santiago tomorrow. Janna notes that she will send message to Dr. Santiago regarding this need. Maribeth also noted that she is going to send My Chart message as well in regards to cancelling appt. Maribeth notes that the hospital Sw had encouraged patient to go to [facility] for further care after being in [facility]. Daughter is trying to get with admissions at [facility] in regards to them saying that she is going there for 30 days and being placed in LTC and not Rehab. Daughter also notes that she has an appt next week with [facility] for financial planning. Maribeth also noted that she would like patient to see Dr. Santiago if and when she leaves [facility]. While in [place], patient will be followed by their provider. Janna did encourage patient daughter to also reach out to [facility] and [facility] for further support guidance regarding LTC planning. Janna will forward note to Dr. Santiago and her office in regards to appt cancellation need for tomorrow. [facility]04[facility]25 [facility]04-16-2025 [facility]04-16-2025 Consult note [facility] Medical Records Department [address] [place] [address] Anesthesia Postop Eval II 03/03/25904 MR#: [id number] Acct: [id number] Name: MICHAELA BRANDT Rep #:[id number] : 1940 84 From: Jim Vidales MD PCP: Dr. Dillan Santiago MD Status:ADM I N Y Race: C Location: [place] [id number] -[id number] Anesthesia Postop Eval I Sum Postop Eval Completion status Anesthesia document: Postop Eval 1 completed: Yes Anesthesia Postop Eval I Summary Anesthesia Postop Eval I Summary: Anesthesia Postop Eval I: Assessment Summary Airway patent Yes 03/02/25 13:00 RECEIVING INSPECTOR.JDEF Spontaneous unlabored Yes 03/02/25 13:00 RECEIVING INSPECTOR.JDEF respirations Mental status Asleep 03/02/25 13:00 RECEIVING INSPECTOR.JDEF nausea No 03/02/25 13:00 RECEIVING INSPECTOR.JDEF Vomiting No 03/02/25 13:00 RECEIVING INSPECTOR.JDEF Anesthesia Postop Eval I: Fluid Summary Crystalloid volume administer 600 03/02/25 13:00 RECEIVING INSPECTOR.JDEF (ml) Colloids volume administered ( ml) Blood Product volume administered (ml) Total IV fluid infused 600 03/02/25 13:00 RECEIVING INSPECTOR.JDEF Anesthesia Postop Eval I: Summary Notes Anesthesia Complication No 03/02/25 13:00 RECEIVING INSPECTOR.JDEF Anesthesia Complication Comment: Post-operative progress note Anesthesia: Postop Eval II Evaluation Mental status: Awake and Calm Pain Level: 2 nausea: No Vomiting: No Complications Anesthesia Complication: No 03/03/25 0905 javier DELACRUZ> Date _ Jim Vidales MD Cosigner Signature: Date CC: ~ Signed [facility]04-16-2025 Discharge summary Author Allison Tran [facility] Note Date/Time March 04, 2025 12: 22pm [facility] Medical Records Department [address] [place] [address] Transfer to [facility] MR#: [id number] Acct: [id number] Name: MICHAELA BRANDT Rep #:[id number] : 1940 84 From: Allison Tran MD PCP: Dr. Dillan Santiago MD Status:ADM I N Certification of patient admission REQUIRED AT TIME OF ADMISSION. I CERTIFY THAT POST-HOSPITAL [facility] SERVICES ARE REQUIRED TO BE GIVEN ON AN IN-PATIENT BASIS BECAUSE OF THE ABOVE NAMED PATIENT'S NEED FOR SNF CARE ON A CONTINUING BASIS FOR THE CONDITION(S) FOR WHICH HE/SHE WAS RECEIVING IN-PATIENT HOSPITAL SERVICES PRIOR TO HIS/HER TRANSFER TO THE [facility]. 03/04/25 1222<Electronically signed by Allison Tran MD> [...] in before D/C Order can be placed): Long-Term Facility 03/04/25 1222 <Electronically signed by Allison Tran MD> Cosigner Signature (if applicable): CC: Dr. Dillan Santiago MD; Dr. Roro Long DO; Dr. [place] Rosas DO ~ [facility] Work Phone: 1(356) 483-459104-16-2025 Discharge summary [facility] Medical Records Department [address] [place] [address] Transfer to [facility] MR#: [id number] Acct: [id number] Name: MICHAELA BRANDT Rep #:[id number] : 1940 84 From: Allison Tran MD PCP: Dr. Dillan Santiago MD Status:ADM I N Certification of patient admission REQUIRED AT TIME OF ADMISSION. I CERTIFY THAT POST-HOSPITAL [facility] SERVICES ARE REQUIRED TO BE GIVEN ON AN IN-PATIENT BASIS BECAUSE OF THE ABOVE NAMED PATIENT'S NEED FOR SNF CARE ON A CONTINUING BASIS FOR THE CONDITION(S) FOR WHICH HE/SHE WAS RECEIVING IN-PATIENT HOSPITAL SERVICES PRIOR TO HIS/HER TRANSFER TO THE [facility]. 03/04/25 1222 Diet Diet Order/Speech Therapy: 03/02/25 [...] Provider: Allison Tran Primary Care Provider: Dillan Santigao Consulting Providers: [place] Rosas; Roro Long Instructions [...] in before D/C Order can be placed): Long-Term Facility 03/04/25 1222 Cosigner Signature (if applicable): CC: Dr. Dillan Santiago MD; Dr. Roro Long DO; Dr. [place] Rosas, DO ~ [facility]04-16-2025 [facility]04-15-2025 Progress note Author Josy Parks [facility] Note Date/Time March 03, 2025 5:1 6pm [facility] Medical Records Department [address] [place] [address] Progress Note - Orthopedic 03/03/25 1316 MR#: [id number] Acct: [id number] Name: MICHAELA BRANDT Rep #:[id number] : 1940 84 From: Josy HOUSE PCP: Dr. Dillan Santiago MD Status:ADM I N Location: [place] [address] Subjective Subjective Patient is lying comfortably in [...] 74.6 H, Lymph % (Auto) 12.6 L, [place] % (Auto) 9.6, Eos % (Auto) 1.9, [...] evidence of fracture or loosening. Reading Location: [facility] Physical Exam Narrative 1. MEJIA hose in [...] orthopedic with any concerns or questions 03/03/25 8351 <Electronically signed by Josy HOUSE> Cosigner Signature (if applicable): CC: ~ Signed [facility] Work Phone: 1(267) 899-585604-15-2025 Progress note [facility] Medical Records Department [address] [place] [address] Progress Note - Orthopedic 03/03/25 1316 MR#: [id number] Acct: [id number] Name: RIKKIMICHAELA MCKINLEY Rep #:[id number] : 1940 84 From: Josy HOUSE PCP: Dr. Dillan Santiago MD Status:ADM I N Location: MS3 LR305-8 Subjective Subjective Patient is lying comfortably in [...] 74.6 H, Lymph % (Auto) 12.6 L, [place] % (Auto) 9.6, Eos % (Auto) 1.9, [...] evidence of fracture or loosening. Reading Location: [id number] Physical Exam Narrative 1. MEJIA hose in [...] Contact orthopedic with any concerns or questions 03/03/256 Cosigner Signature (if applicable): CC: ~ Signed [facility]04-15-2025 Progress [facility] Note Date/Time March 03, 2025 3:1 [facility] Records Department [address] [place] [address] Progress Note 03/03/25 1459 MR#: [id number] Acct: [id number] Name: MICHAELA BRANDT Rep #:[id number] : 1940 84 From: Allison Tran MD PCP: Dr. Dillan Santiago MD Status:ADM I N Location: [place] [address] Subjective Subjective Patient seen and examined. Her [...] 74.6 H, Lymph % (Auto) 12.6 L, [place] % (Auto) 9.6, Eos % (Auto) 1.9, [...] evidence of fracture or loosening. Reading Location: [id number] Physical Exam Const alert, oriented x3, no [...] precert. * Charges/Coding Visit Charges Inpatient E&M: 63705 Subs Hosp L2 03/03/25 1518 <Electronically signed by Allison Tran MD> Allison Tran MD Cosigner Signature (if applicable): CC: ~ Signed [facility] Work Phone: 1(930) 398-299904-15-2025 Progress note [facility] Medical Records Department [address] [place] [address] Progress Note 03/03/25 1459 MR#: [id number] Acct: [id number] Name: MICHAELA BRANDT Rep #:[id number] : 1940 84 From: Allison Tran MD PCP: Dr. Dillan Santiago MD Status:ADM I N Location: [place] [address] Subjective Subjective Patient seen and examined. Her [...] 74.6 H, Lymph % (Auto) 12.6 L, [place] % (Auto) 9.6, Eos % (Auto) 1.9, [...] evidence of fracture or loosening. Reading Location: [facility] Physical Exam Const alert, oriented x3, [...] precert. * Charges/Coding Visit Charges Inpatient E&M: 97841 Subs Hosp L2 03/03/25 1511 Allison Tran MD Cosigner Signature (if applicable): CC: ~ Signed [facility]04-15-2025 Consult note Author Jim Vidales [facility] Note Date/Time March 04, 2025 2:5 7pm [facility] Medical Records Department [address] [facility] [place] [address] Anesthesia Postop Eval II 03/03/25 0905 MR#: [id number] Acct: [id number] Name: MICHAELA BRANDT Rep #:[id number] : 1940 84 From: Jim Vidales MD PCP: Dr. Dillan Santiago MD Status:ADM I N Y Race: C Location: [place] [address] -1 Anesthesia Postop Eval I Sum Postop Eval Completion status Anesthesia document: Postop Eval 1 completed: Yes Anesthesia Postop Eval I Summary Anesthesia Postop Eval I Summary: Anesthesia Postop Eval I: Assessment Summary Airway patent Yes 03/02/25 13:00 RECEIVING INSPECTOR.JDEF Spontaneous unlabored Yes 03/02/25 13:00 RECEIVING INSPECTOR.JDEF respirations Mental status Asleep 03/02/25 13:00 RECEIVING INSPECTOR.JDEF nausea No 03/02/25 13:00 RECEIVING INSPECTOR.JDEF Vomiting No 03/02/25 13:00 RECEIVING INSPECTOR.JDEF Anesthesia Postop Eval I: Fluid Summary Crystalloid volume administer 600 03/02/25 13:00 RECEIVING INSPECTOR.JDEF (ml) Colloids volume administered ( ml) Blood Product volume administered (ml) Total IV fluid infused 600 03/02/25 13:00 RECEIVING INSPECTOR.JDEF Anesthesia Postop Eval I: Summary Notes Anesthesia Complication No 03/02/25 13:00 RECEIVING INSPECTOR.JDEF Anesthesia Complication Comment: Post-operative progress note Anesthesia: Postop Eval II Evaluation Mental status: Awake and Calm Pain Level: 2 nausea: No Vomiting: No Complications Anesthesia Complication: No 03/03/25904 <Electronically signed by Jim herrera MD> Date _ Jim Vidales MD Cosigner Signature: Date CC: ~ Signed [facility] Work Phone: 1(627) 401-869704-14-2025 Progress note Author Allison [facility] Note Date/Time March 02, 2025 3:5 0pm [facility] Medical Records Department [address] [place] [address] Progress Note 03/02/25 1133 MR#: [id number] Acct: [id number] Name: MICHAELA BRANDT Rep #:[id number] : 1940 84 From: Allison Tran MD PCP: Dr. Dillan Santiago MD Status:ADM I N Location: [place] [address] Subjective Subjective Patient seen and examined. Her daughter was by her bedside. She had no active complaints. She denies any pain. Review of systems is otherwise negative. She has remained hemodynamically stable. Objective Data Objective Data Vital Signs: Vital Signs Temp Pulse Resp BP Pulse Ox O2 Del Method 97.5 F L 62 14 138/60 H 100 Room Air 03/02/25 11:03/02/25 11:09 03/02/25 11:03/02/25 11:03/02/25 11:09 03/02/25 07:36 [...] 92.1 H, Lymph % (Auto) 3.3 L, [place] % (Auto) 3.8, Eos % (Auto) 0.0, [...] (Auto) 76.7 H, Lymph % (Auto) 11.6L, [place] % (Auto) 9.5, Eos % (Auto) 0.9, [...] fracture of the left femur. Reading Location: [facility] Knee X-Ray 03/01/25 11:41 IMPRESSION: Acute fracture of the left lateral femoral condyle. Reading Location: [facility] Brain CT 03/01/25 12:42 IMPRESSION: 1. No acute intracranial finding. 2. Findings of chronic microvascular ischemic changes and age-related changes. Reading Location: [facility] Lower Extremity CT 03/01/25 12:42 IMPRESSION: No acute osseous fracture. The previously visualized osseous fragment along the distal lateral left femoral condyle is secondary to diffuse bone lucency and probable nutrient channel. Reading Location: [facility] Chest X-Ray 03/01/25 13:59 IMPRESSION: Emphysema/fibrosis. No acute findings. Reading Location: [facility] Physical Exam Const alert, oriented x3, [...] intubation * Charges/Coding Visit Charges Inpatient E&M: 99431 Subs Hosp L2 03/02/25 1550 <Electronically signed by Allison Tran MD> Allison Tran MD Cosigner Signature (if applicable): CC: ~ Signed [facility] Work Phone: 1(149) 826-940304-14-2025 Progress note [facility] Medical Records Department [address] [place] [address] Progress Note 03/02/25 1133 MR#: [id number] Acct: [id number] Name: MICHAELA BRANDT Rep #:[id number] : 1940 84 From: Allison Tran MD PCP: Dr. Dillan Santiago MD Status:ADM I N Location: [place] [address]-1 Subjective Subjective Patient seen and examined. Her [...] 92.1 H, Lymph % (Auto) 3.3 L, [place] % (Auto) 3.8, Eos % (Auto) 0.0, [...] (Auto) 76.7 H, Lymph % (Auto) 11.6L, [place] % (Auto) 9.5, Eos % (Auto) 0.9, [...] fracture of the left femur. Reading Location: [facility] Knee X-Ray 03/01/25 11:41 IMPRESSION: Acute fracture of the left lateral femoral condyle. Reading Location: [facility] Brain CT 03/01/25 12:42 IMPRESSION: 1. No acute intracranial finding. 2. Findings of chronic microvascular ischemic changes and age-related changes. Reading Location: [facility] Lower Extremity CT 03/01/25 12:42 IMPRESSION: No acute osseous fracture. The previously visualized osseous fragment along the distal lateral leftfemoral condyle is secondary to diffuse bone lucency and probable nutrient channel. Reading Location: [facility] Chest X-Ray 03/01/25 13:59 IMPRESSION: Emphysema/fibrosis. No acute findings. Reading Location: [facility] Physical Exam Const alert, oriented x3, [...] intubation * Charges/Coding Visit Charges Inpatient E&M: 25540 Subs Hosp L2 03/02/25 1550 Allison Tran MD Cosigner Signature (if applicable): CC: ~ Signed [facility]04-14-2025 Radiology Diagnostic study note [facility] Imaging Services [address] [place] [address] Hip Min 2 Views (Portable) MR#: [id number] Acct: [id number] Name: MICHAELA BRANDT Rep #: [id number] : 1940 F 84 From: Jose Gayle DO PCP: Dr. Dillan Santiago MD Status: ADM I N Study:Hip Min 2 Views (Portable) Date of Exam : 03/02/25 Exam# [id number] Ordering Dr: James Overton MD PROCEDURE: HIP [...] evidence of fracture or loosening. Reading Location: [id number] CC: Dr. Dillan Santiago MD; Dr. Elijah Overton MD ~ Crew Leader/Control Room Operator: Signed [facility]04-14-2025 Consult note Author Joanna Delgado [facility] Note Date/Time March 02, 2025 1:0 0pm [facility] Medical Records Department [address] [place] [address] Anesthesia Postop Eval I 03/02/25 1259 MR#: [id number] Acct: [id number] Name: MICHAELA BRANDT Rep #:[id number] : 1940 84 From: Joanna Delgado CRNA PCP: Dr. Dillan Santiago MD Status:ADM I N Y Race: C Location: [facility] MS322 -1 Anesthesia: Postop Eval I Current Vital [...] Yes 03/02/25 1300 <Electronically signed by Joanna leonard CRNA> Date _ Joanna Delgado CRNA Cosigner Signature: Date CC: ~ Signed [facility] Work Phone: 1(353) 113-559204-14-2025 Consult note Author Sae nhi [facility] Note Date/Time March 02, 2025 11: 09am [facility] Medical Records Department [address] [place] [address] Pre-Anesthesia Evaluation 03/02/25 1109 MR#: [id number] Acct: [id number] Name: MICHAELA BRANDT Rep #:[id number] : 1940 84 From: Sae Sesay MD PCP: Dr. Dillan Santiago MD Status:ADM I N Y Race: C Location: [facility] MS322 -1 ASA Classification* ASA Classification ASA [...] left hip Anesthesia History Anesthesia History - completions manager: Anesthesia History - completions manager Hx Hospitalization Any Problems With Anesthesia No [...] take am of surgery PONV PONV - completions manager: PONV - completions manager Female HX of Motion Sickness HX of N/V After Surgery Non-Smoker Duration of Surgery greater than 60 minutes Number of Risk Factors PONV Score Height & Weight Height & Weight: Anesthesia: Height & Weight Height 5 ft 03/01/25 15:09 Weight: 57.7 kg 03/02/25 06:00 Body Mass Index (BMI) 25.0 03/02/25 06:00 Respiratory Assessment Respiratory Assessment - completions manager: Respiratory Tract Infection Hx - completions manager Hx Respiratory Tract Infection No 03/01/25 22:27 STOP Sleep Apnea STOP Sleep Apnea - completions manager: STOP Sleep Apnea - completions manager Hx Hypertension No 03/02/25 09:43 Hx Sleep [...] Tobacco Use History Tobacco Use History - completions manager: Tobacco Use History - completions manager Tobacco Use Smoking Status Never smoker 03/01/25 16:34 Hx Tobacco Use No 03/01/25 15:09 Years Smoking Packs Smoked per Day Smoking Cessation Date was within the last 15 years Hx Smoking Cessation Date Hx Smoking Cessation Counseling Hematologic Medial History Hematologic Hx - completions manager: Hematologic Medical Hx - rn documentation specialist Hx of Blood Transfusion No 03/01/25 15:09 [...] confused, unrespo /Reproduction History /Reproductive History - completions manager: /Reproductive Hx- completions manager Hx Now No 03/01/25 22:27 Gestational Age [...] 03/02/25 10:49 IV 03/02/25 18:19 0 mls/hr .[id number] GRAY Infusion Sodium Chloride 100 mls @ [...] Powder 15gm Bottle TOPICAL Not Given BID [facility] Protocol Ondansetron HCl 4 mg 03/01/25 [...] 50 Mg Tablet PO Not Given [facility] Medical History Hypothyroidism Anxiety Dementia Self-catheterizes urinary [...] Sae Sesay MD > Date _ Sae Salmeronigner Signature: Date CC: ~ Signed [facility] Work Phone: 1(289) 795-250904-14-2025 Consult note Author Elijah Overton [facility] Note Date/Time March 02, 2025 11: 05am [facility] Medical Records Department [address] [place] [address] Consultation - Orthopedics 03/02/25 1100 MR#: [id number] Acct: [id number] Name: MICHAELA BRANDT Rep #:[id number] : 1940 84 From: Elijah Laws PCP: Dr. Dillan Santiago MD Status:ADM I N Location: [place] PN917-2 HPI Consult Data Date of Consult: 03/02/25 HPI Narrative Reason for Consultation: Left hip pain HPI Narrative: MICHAELA BRANDT, is a 84 F who presents with left hip pain. Patient's daughter isat bedside and is her medical power of real estate attorney. Patient does have memory issues and [...] and was the primary provider of information. [facility] Medical History Hypothyroidism Anxiety Dementia Self-catheterizes [...] 92.1 H, Lymph % (Auto) 3.3 L, [place] % (Auto) 3.8, Eos % (Auto) 0.0, [...] (Auto) 76.7 H, Lymph % (Auto) 11.6L, [place] % (Auto) 9.5, Eos % (Auto) 0.9, [...] fracture of the left femur. Reading Location: [facility] Knee X-Ray 03/01/25 11:41 IMPRESSION: Acute fracture of the left lateral femoral condyle. Reading Location: [facility] Brain CT 03/01/25 12:42 IMPRESSION: 1. No acute intracranial finding. 2. Findings of chronic microvascular ischemic changes and age-related changes. Reading Location: [facility] Lower Extremity CT 03/01/25 12:42 IMPRESSION: No acute osseous fracture. The previously visualized osseous fragment along the distal lateral left femoral condyle is secondary to diffuse bone lucency and probable nutrient channel. Reading Location: [facility] Chest X-Ray 03/01/25 13:59 IMPRESSION: Emphysema/fibrosis. No acute findings. Reading Location: [facility] Assessment & Plan Assessment/Plan (1) Closed intertrochanteric fracture of left hip: PLAN: Natural history of the disease process was discussed with patient and her family member at bedside. Potential treatment options were discussed and cephalomedullary nail was recommended as appropriate treatment plan. Risk and benefits of the procedure were discussed the patient and her medical power of real estate attorney occluding but not limited to blood [...] applicable): CC: Dr. Dillan Santiago MD~ Signed [facility] Work Phone: 1(542) 655-966104-14-2025 Consult note [facility] Medical Records Department [address] [place] [address] Anesthesia Postop Eval I 03/02/25 1259 MR#: [id number] Acct: [id number] Name: MICHAELA BRANDT Rep #:[id number] : 1940 84 From: Joanna Delgado RECEIVING INSPECTOR PCP: Dr. Dillan Santiago MD Status:ADM I N Y Race: C Location: [place] [address] Anesthesia: Postop Eval I Current Vital Signs [...] Eval 1 completed: Yes 03/02/[address] RECEIVING INSPECTOR> Date _ Joanna Delgado RECEIVING INSPECTOR Cosigner Signature: Date CC: ~ Signed [facility]04-14-2025 Procedure note [facility] Medical Records Department [address] [place] [address] Operative Report 03/02/25 1100 MR#: [id number] Acct: [id number] Name: MICHAELA BRANDT Rep #:[id number] : 1940 84 From: Elijah Laws PCP: Dr. Dillan Santiago MD Status:ADM I N Location: [place] [address] Operative Report (Standard) Operative Information Date of Procedure: 03/02/25 Pre-Operative Diagnosis: Left intertrochanteric hip fracture Post-Operative Diagnosis: Left intertrochanteric hip fracture Surgery/Procedure Performed: Left hip cephalomedullary nail tire stripper: No Type of Anesthesia: General RN Documented Start/Stop Times: Operation Date: 03/02/25 13:15 Case Time Into Pre-Op 03/02/25 10:50 Anesthesia Start 03/02/25 11:50 Into Room 03/02/25 11:50 Procedure Start 03/02/25 12:16 Procedure End 03/02/25 12:41 Procedure Start Time: 12:16 Procedure Stop Time: 12:41 Select all DRAINS/GRAFTS/IMPLANTS that apply: Implanted device Implanted device details: [place] gamma nail 3, 11 mm x 180 [...] verify theplacement of the nail and a [place] short gamma 3 by 11 mm 125 degree hip nail was selected. The 12.5 mm reamer was then passed. The nail was then attached to the material planning analyst and inserted into the intramedullary canal. The [...] Hose VTE Pharm Prophylaxis ordered?: Yes 03/02/25 0199 Cosigner Signature (if applicable): CC: Dr. Dillan Santiago MD; Dr. Roro Long DO; Dr. Boston Rosas DO; Dr. Elijah Overton MD~ Signed [facility]04-14-2025 Radiology Diagnostic study note [facility] Imaging Services [address] [place] [address] Hip Min 2 Views (Portable) MR#: [id number] Acct: [id number] Name: MICHAELA BRANDT Rep #: [id number] : 1940 F 84 From: Tanner Beth MD PCP: Dr. Dillan Santiago MD Status: ADM I N Study:Hip Min 2 Views (Portable) Date of Exam : 03/02/25 Exam# [id number] Ordering Dr: James Overton MD PROCEDURE: Intraoperative [...] of the left intertrochanteric fracture. Reading Location: [place] [address] CC: Dr. Dillan Santiago MD; Dr. Elijah Overton MD ~ Crew Leader/Control Room Operator: Signed [facility]04-14-2025 Consult note [facility] Medical Records Department [address] [place] [address] Pre-Anesthesia Evaluation 03/02/25 1109 MR#: [id number] Acct: [id number] Name: MICHAELA BRANDT Rep #:[id number] : 1940 84 From: Sae Sesay MD PCP: Dr. Dillan Santiago MD Status:ADM I N Y Race: C Location: [place] [address] ASA Classification* ASA Classification ASA Classification: 2 [...] left hip Anesthesia History Anesthesia History - completions manager: Anesthesia History - completions manager Hx Hospitalization Any Problems With Anesthesia No [...] take am of surgery PONV PONV - completions manager: PONV - completions manager Female HX of Motion Sickness HX of N/V After Surgery Non-Smoker Duration of Surgery greater than 60 minutes Number of Risk Factors PONV Score Height & Weight Height & Weight: Anesthesia: Height & Weight Height 5 ft 03/01/25 15:09 Weight: 57.7 kg 03/02/25 06:00 Body Mass Index (BMI) 25.0 03/02/25 06:00 Respiratory Assessment Respiratory Assessment - completions manager: Respiratory Tract Infection Hx - completions manager Hx Respiratory Tract Infection No 03/01/25 22:27 STOP Sleep Apnea STOP Sleep Apnea - completions manager: STOP Sleep Apnea - completions manager Hx Hypertension No 03/02/25 09:43 Hx Sleep [...] Tobacco Use History Tobacco Use History - completions manager: Tobacco Use History - completions manager Tobacco Use Smoking Status Never smoker 03/01/25 16:34 Hx Tobacco Use No 03/01/25 15:09 Years Smoking Packs Smoked per Day Smoking Cessation Date was within the last 15 years Hx Smoking Cessation Date Hx Smoking Cessation Counseling Hematologic Medial History Hematologic Hx - completions manager: Hematologic Medical Hx - rn documentation specialist Hx of Blood Transfusion No 03/01/25 15:09 [...] confused, unrespo /Reproduction History /Reproductive History - completions manager: /Reproductive Hx- completions manager Hx Now No 03/01/25 22:27 Gestational Age [...] 03/02/25 10:49 IV 03/02/25 18:19 0 mls/hr .[id number] GRAY Infusion Sodium Chloride 100 mls @ [...] Powder 15gm Bottle TOPICAL Not Given BID [facility] Protocol Ondansetron HCl 4 mg 03/01/25 [...] MD Cosigner Signature: Date CC: ~ Signed [facility]04-14-2025 Consult note [facility] Medical Records Department [address] [place] [address] Consultation - Orthopedics 03/02/25 1100 MR#: [id number] Acct: [id number] Name: MICHAELA BRANDT Rep #:[id number] : 1940 84 From: Elijah Laws PCP: Dr. Dillan Santiago MD Status:ADM I N Location: [place] [address] HPI Consult Data Date of Consult: 03/02/25 HPI Narrative Reason for Consultation: Left hip pain HPI Narrative: MICHAELA BRANDT, is a 84 F who presents with left hip pain. Patient's daughter isat bedside and is her medical power of real estate attorney. Patient does have memory issues and [...] and was the primary provider of information. [facility] Medical History Hypothyroidism Anxiety Dementia Self-catheterizes [...] 92.1 H, Lymph % (Auto) 3.3 L, [place] % (Auto) 3.8, Eos % (Auto) 0.0, [...] (Auto) 76.7 H, Lymph % (Auto) 11.6L, [place] % (Auto) 9.5, Eos % (Auto) 0.9, [...] fracture of the left femur. Reading Location: [facility] Knee X-Ray 03/01/25 11:41 IMPRESSION: Acute fracture of the left lateral femoral condyle. Reading Location: [facility] Brain CT 03/01/25 12:42 IMPRESSION: 1. No acute intracranial finding. 2. Findings of chronic microvascular ischemic changes and age-related changes. Reading Location: [facility] Lower Extremity CT 03/01/25 12:42 IMPRESSION: No acute osseous fracture. The previously visualized osseous fragment along the distal lateral leftfemoral condyle is secondary to diffuse bone lucency and probable nutrient channel. Reading Location: [facility] Chest X-Ray 03/01/25 13:59 IMPRESSION: Emphysema/fibrosis. No acute findings. Reading Location: [facility] Assessment & Plan Assessment/Plan (1) Closed intertrochanteric fracture of left hip: PLAN: Natural history of the disease process was discussed with patient and her family member at bedside. Potential treatment options were discussed and cephalomedullary nail was recommended as appropriate treatment plan. Risk and benefits of the procedure were discussed the patient and her medicalpower of real estate attorney occluding but not limited to blood [...] applicable): CC: Dr. Dillan Santiago MD~ Signed [facility]04-14-2025 Discharge summary Author Guerrero Chawlaehne [facility] Note Date/Time March 01, 2025 10: 59pm [facility] Medical Records Department [address] [place] [address] Emergency Department Summary 03/01/25 MR#: [id number] Acct: [id number] Name: MICHAELA BRANDT Rep #:[id number] : 1940 84 From: Guerrero Sommer PCP: Dr. Dillan Santiago MD Status:ADM I N Location: [place] [address] HPI HPI - Fall History of Present [...] not. That was apparently in 2014 in [facility]. Patient reportedly just moved to the area. She denies any other injuries. She states that she cannot really move the knee. Patient is very tearful upset about bothering her children and over her late . There is a report of the degree of dementia that is reported to me. [facility] Medical History (Updated 03/01/25 @ 13:47 by [...] Smoking Status: Unknown if ever smoked ROS [facility] ED Constitutional Constitutional ED: Denies chills or [...] 92.1 H Lymph % (Auto) 3.3 L [place] % (Auto) 3.8 Eos % (Auto) 0.0 [...] fracture of the left femur. Reading Location: [facility] Knee X-Ray 03/01/25 11:41 IMPRESSION: Acute fracture of the left lateral femoral condyle. Reading Location: [facility] Brain CT 03/01/25 12:42 IMPRESSION: 1. No acute intracranial finding. 2. Findings of chronic microvascular ischemic changes and age-related changes. Reading Location: [facility] Lower Extremity CT 03/01/25 12:42 IMPRESSION: No acute osseous fracture. The previously visualized osseous fragment along the distal lateral left femoral condyle is secondary to diffuse bone lucency and probable nutrient channel. Reading Location: [facility] EKG Initial EKG: Attestation: I personally reviewed and interpreted this EKG as follows: Comments: Sinus rhythm ventricular rate 65 bpm Management Discussion w/another healthcare provider: Hospitalist, Clinical Medical Transcriptionist (Dr Rosas) and horticultural farmworker/Case management Discharge Plan Dx/Rx/DC Orders Clinical Impression: Fall, Closed intertrochanteric fracture of left hip, Acute pain of left knee Disposition Disposition: Acute Care Hospital [facility] What to do if you have Problems For any increased pain, shortness of breath, bleeding, nausea or vomiting, chestpain, or any unexpected problems, contact your Primary Care Provider. Call [facility] ([phone]) or report to the closest Emergency Room. Call 911 if necessary. 03/01/25 6034 <Electronically signed by Guerrero Valerio DO> Cosigner Signature (if applicable): CC: Dr. Dillan Santiago MD ~ Signed [facility] Work Phone: 1(700) 406-663404-13-2025 Discharge summary [facility] Medical Records Department [address] [place] [address] Emergency Department Summary 03/01/25 MR#: [id number] Acct: [id number] Name: MICHAELA BRANDT Rep #:[id number] : 1940 84 From: Guerrero Sommer PCP: Dr. Dillan Santiago MD Status:ADM I N Location: [address] HPI HPI - Fall History of Present [...] not. That was apparently in 2014 in [facility]. Patient reportedly just moved to the area. She denies any other injuries. She states that she cannot really move the knee. Patient is very tearful upset about bothering her children and over her late . There is a report of the degree of dementia that is reported to me. [facility] Medical History (Updated 03/01/25 @ 13:47 by [...] 92.1 H Lymph % (Auto) 3.3 L [place] % (Auto) 3.8 Eos % (Auto) 0.0 [...] fracture of the left femur. Reading Location: [facility] Knee X-Ray 03/01/25 11:41 IMPRESSION: Acute fracture of the left lateral femoral condyle. Reading Location: [facility] Brain CT 03/01/25 12:42 IMPRESSION: 1. No acute intracranial finding. 2. Findings of chronic microvascular ischemic changes and age-related changes. Reading Location: [facility] Lower Extremity CT 03/01/25 12:42 IMPRESSION: No acute osseous fracture. The previously visualized osseous fragment along the distal lateral leftfemoral condyle is secondary to diffuse bone lucency and probable nutrient channel. Reading Location: [facility] EKG Initial EKG: Attestation: I personally reviewed and interpreted this EKG as follows: Comments: Sinus rhythm ventricular rate 65 bpm Management Discussion w/another healthcare provider: Hospitalist, Clinical Medical Transcriptionist (Dr Rosas) and horticultural farmworker/Case management Discharge Plan Dx/Rx/DC Orders Clinical Impression: Fall, Closed intertrochanteric fracture of left hip, Acute pain of left knee Disposition Disposition: Acute Care Hospital [facility] What to do if you have Problems For any increased pain, shortness of breath, bleeding, nausea or vomiting, chestpain, or any unexpected problems, contact your Primary Care Provider. Call [facility] ([phone]) or report tothe closest Emergency Room. Call 911 if necessary. 03/01/25 9567 Cosigner Signature (if applicable): CC: Dr. Dillan Santiago MD ~ Signed [facility]04-13-2025 History and physical note Author Roro Long [facility] Note Date/Time March 01, 2025 4:3 7pm [facility] Medical Records Department [address] [place] [address] H&P Exam - Hospitalist 03/01/25 1345 MR#: [id number] Acct: [id number] Name: MICHAELA BRANDT Rep #:[id number] : 1940 84 From: Roro Long DO PCP: Dr. Dillan Santiago MD Status:ADM I N Location: [facility] RM177-7 HPI - General General Date of Admission: 03/01/25 Date of Service: 03/01/25 Chief Complaint: L hip pain after mechanical fall HPI Narrative MICHAELA BRANDT, is a 84 F who presented to the emergency department at [facility] on 03/01/2025 with a chief complaint [...] admitted with an expected 2 midnight stay. [facility] Medical History Hypothyroidism Anxiety Dementia Self-catheterizes [...] 92.1 H, Lymph % (Auto) 3.3 L, [place] % (Auto) 3.8, Eos % (Auto) 0.0, [...] fracture of the left femur. Reading Location: [facility] Knee X-Ray 03/01/25 11:41 IMPRESSION: Acute fracture of the left lateral femoral condyle. Reading Location: [facility] Brain CT 03/01/25 12:42 IMPRESSION: 1. No acute intracranial finding. 2. Findings of chronic microvascular ischemic changes and age-related changes. Reading Location: [facility] Lower Extremity CT 03/01/25 12:42 IMPRESSION: No acute osseous fracture. The previously visualized osseous fragment along the distal lateral left femoral condyle is secondary to diffuse bone lucency and probable nutrient channel. Reading Location: [facility] Assessment & Plan Assessment/Plan (1) Closed [...] code temporarily. Charges/Coding Visit Charges Inpatient E&M: 12498 Init Hosp L2 03/01/25 1637 <Electronically signed by Roro Long DO> Cosigner Signature (if applicable): CC: Dr. Dillan Santiago MD; Dr. Roro Long DO~ Signed [facility] Work Phone: 1(709) 724-809804-13-2025 History and physical note [facility] Medical Records Department [address] [place] [address] H&P Exam - Hospitalist 03/01/25 1345 MR#: [id number] Acct: [id number] Name: MICHAELA BRANDT Rep #:[id number] : 1940 84 From: Roro Long DO PCP: Dr. Dillan Santiago MD Status:ADM I N Location: [facility] LA065-6 HPI - General General Date of Admission: 03/01/25 Date of Service: 03/01/25 Chief Complaint: L hip pain after mechanical fall HPI Narrative MICHAELA BRANDT, is a 84 F who presented to the emergency department at [facility] on03/01/2025 with a chief complaint of [...] admitted with an expected 2 midnight stay. [facility] Medical History Hypothyroidism Anxiety Dementia Self-catheterizes [...] 92.1 H, Lymph % (Auto) 3.3 L, [place] % (Auto) 3.8, Eos % (Auto) 0.0, [...] fracture of the left femur. Reading Location: [facility] Knee X-Ray 03/01/25 11:41 IMPRESSION: Acute fracture of the left lateral femoral condyle. Reading Location: [facility] Brain CT 03/01/25 12:42 IMPRESSION: 1. No acute intracranial finding. 2. Findings of chronic microvascular ischemic changes and age-related changes. Reading Location: [facility] Lower Extremity CT 03/01/25 12:42 IMPRESSION: No acute osseous fracture. The previously visualized osseous fragment along the distal lateral leftfemoral condyle is secondary to diffuse bone lucency and probable nutrient channel. Reading Location: [facility] Assessment & Plan Assessment/Plan (1) Closed [...] code temporarily. Charges/Coding Visit Charges Inpatient E&M: 12800 Init Hosp L2 03/01/25 1637 Cosigner Signature (if applicable): CC: Dr. Dillan Santiago MD; Dr. Roro Long DO~ Signed [facility]04-13-2025 Evaluation note* Diagnosis Onset Date Resolution Status Admit Date Acute pain of left knee acute A pril 2024 1:47pm Closed intertrochanteric fra cture of left hip acute March 01, 2025 1:47pm Fall acute March 01 1:47pm [facility] Work Phone: 1(827) 372-530004-13-2025 Evaluation note* Diagnosis Onset Date Resolution Status [...] 2025 3:04pm Fall inactive March 04 3:04pm [facility] Work Phone: 1(623) 975-179804-13-2025 Evaluation note* Diagnosis Onset Date Resolution Status [...] Augu 2024 2:26pm Self-catheterizes urinary bladder [place] June 20, 2025 2:26pm [facility] Work Phone: 1(443) 870-973604-13-2025 Radiology Diagnostic study note [facility] Imaging Services [address] [place] [address] Chest 1 View (Portable) MR#: [id number] Acct: [id number] Name: MICHAELA BRANDT Rep #: [id number] : 1940 F 84 From: Jo Rabago MD PCP: Dr. Dillan Santiago MD Status: ADM I N Study:Chest 1 View (Portable) Date of Exam: 03/01/25 Exam# [id number] Ordering Dr: Cassy Long DO PROCEDURE: CHEST [...] IMPRESSION: Emphysema/fibrosis. No acute findings. Reading Location: [facility] CC: Dr. Dillan Santiago MD; Dr. Roro Long DO ~ Crew Leader/Control Room Operator: Signed [facility]04-13-2025 Radiology Diagnostic study note [facility] Imaging Services [address] [place] [address] [id number] Knee 1 or 2 Views MR#: [id number] Acct: [id number] Name: MICHAELA BRANDT Rep #: [id number] : 1940 F 84 From: Jo Rabago MD PCP: Dr. Dillan Santiago MD Status: REG E R Study:Knee 1 or 2 Views Date of Exam: Exam# [id number] Ordering Dr: Veto Valerio DO ADDENDUM by Dr. Janet Rabago MD on 03/01/25 at 1310 No acute osseous fracture seen on same day CT of the left knee. The previously visualized osseous fragment along the distal lateral left femoral condyle is secondary to diffuse bone lucency and probable nutrient channel. Reading Location: [facility] 03/01/25 1311 Date cc: Dr. Dillan [...] the left lateral femoral condyle. Reading Location: [facility] CC: Dr. Dillan Santiago MD; Dr. Guerrero Valerio DO ~ Crew Leader/Control Room Operator: Signed [facility]04-13-2025 Radiology Diagnostic study note [facility] Imaging Services [address] [place] [id number] Extremity Lower without Contra MR#: [id number] Acct: [id number] Name: MICHAELA BRANDT Rep #: [id number] : 1940 F 84 From: oJ Rabago MD PCP: Dr. Dillan Santiago MD Status: REG E R Study:Extremity Lower without Contra Date of Exam: 03/01/25 Exam# [id number] Ordering Dr: Veto Valerio DO PROCEDURE: EXTREMITY [...] lucency and probable nutrient channel. Reading Location: [facility] CC: Dr. Dillan Santiago MD; Dr. Guerrero Valerio DO ~ Crew Leader/Control Room Operator: Signed [facility]04-13-2025 Radiology Diagnostic study note [facility] Imaging Services [address] [place], [place] [address] Brain/Head without Contrast MR#: [id number] Acct: [id number] Name: MICHAELA BRANDT Rep #: [id number] : 1940 F 84 From: Jo Rabago MD PCP: Dr. Dillan Santiago MD Status: REG E R Study:Brain/Head without Contrast Date of Exa m: 03/01/25 Exam# [id number] Ordering Dr: Veto Valerio DO EXAM: BRAIN/HEAD [...] ischemic changes and age-related changes. Reading Location: [facility] CC: Dr. Dillan Santiago MD; Dr. Guerrero Valerio DO ~ Crew Leader/Control Room Operator: Signed [facility]04-13-2025 Radiology Diagnostic study note [facility] Imaging Services [address] [place] [address] HIP, UNI W/ Pelvis 2-3 Views MR#: [id number] Acct: [id number] Name: MICHAELA BRANDT Rep #: [id number] : 1940 F 84 From: Jo Rabago MD PCP: Dr. Dillan Santiago MD Status: REG E R Study:HIP, UNI W/ Pelvis 2-3 Views Date of Ex am: 03/01/25 Exam# [id number] Ordering Dr: Veto Valerio DO PROCEDURE: HIP, [...] fracture of the left femur. Reading Location: [facility] CC: Dr. Dillan Santiago MD; Dr. Guerrero Valerio DO ~ Crew Leader/Control Room Operator: Signed [facility]04-11-2025 Telephone encounter Note* Telephone Encounter - Kentrell Montgomery MSW - 02/27/2025 2:48 PM EDT Janna spoke with patient daughter Maribeth. Maribeth noted that her mother is currently living on [address] [place] is concerned about mother living by herself. There are cameras set up in apt to keep watch on patient in case of falls. Discussed different social service agencies and services they offer ie. [facility] [facility] [employer] and [employer]. Janna provided patient daughter with [employer] phone number for help with looking at memory care options in the area. Sw and daughter also discussed different local memory care options ie. [place], [place], [facility], [facility]. Maribeth notes that her mom was not interested in any place that looks like a halfway. Discussed the different options above and layout and levels of care they offer. Maribeth notes that she is going to give Yuko a call from [employer] to see about her assistance as a intermediate advisor looking at level of care memory care options for patient. Maribeth has this Janna direct number for further assistance. [facility]04-11-2025 Miscellaneous Notes* Telephone Encounter - Kentrell Montgomery MSW - 02/27/2025 2:48 PM EDT Janna spoke with patient daughter Maribeth. Maribeth noted that her mother is currently living [address] is concerned about mother living by herself. There are cameras set up in apt to keep watch on patient in case of falls. Discussed different social service agencies and services they offer ie. [facility] [facility] [employer] and [employer]. Janna provided patient daughter with [employer] phone number for help with looking at memory care options in the area. Sw and daughter also discussed different local memory care options ie. [place], [place], [facility], [facility]. Maribeth notes that her mom was not interested in any place that looks like a halfway. Discussed the different options above and layout and levels of care they offer. Maribeth notes that she is going to give Yuko a call from [employer] to see about her assistance as a intermediate advisor looking at level of care memory care options for patient. Maribeth has this Janna direct number for further assistance. * Telephone Encounter - Kentrell Montgomery MSW - 02/27/2025 2:26 PM EDT Sw left message for patient requesting call back to discuss patient home care resource needs. [facility]04[facility] Telephone encounter Note * Telephone Encounter - Kentrell Montgomery MSW - 02/27/2025 2:26 PM EDT Sw left message for patient requesting call back to discuss patient home care resource needs. [facility]04-09-2025 Telephone encounter Note* Telephone Encounter - Mariposa Salinas APRN.CNP - 02/25/2025 8:56 AM EDT PDMP website checked and validated. All prescriptions have been APPROPRIATELY filled. No suspiciousactivity was identified. 02/25/2025 by Mariposa Salinas APRN.CNP [facility]04-09-2025 Miscellaneous Notes* Telephone Encounter - Mariposa [...] you. Radha Haro LPN. documented in this encounterPike [facility] Hospital04-09-2025 Telephone encounter Note * Telephone Encounter [...] Please advise. Thank you. Radha Haro LPN. [facility]04-06-2025 Telephone encounter Note* Telephone Encounter - Sara Adams OCCA - 02/22/2025 9:08 AM EDT TC to patients daughter and medical Michaela MARTINEZ, who verbalized understanding of providers message below. KIRIT Mendez [facility]04-06-2025 Miscellaneous Notes* Telephone Encounter - Sara [...] to see primary care documented in this encounterPike [facility] Hospital04-06-2025 Telephone encounter Note * Telephone Encounter - Walt Robles APRN.CNP - 02/22/2025 8:31 AM EDT Patient is on the correct antibiotic. Symptoms should be improving. If symptoms are not improving patient needs to see primary care [facility]04-03-2025 Telephone encounter Note* Telephone Encounter - Colten Greer MA - 02/19/2025 3:19 PM EDT Spoke with patient's daughter. Daughter will bring patient in for urine. Colten Greer MA [facility]04-03-2025 Miscellaneous Notes* Telephone Encounter - Colten Greer MA - 02/19/2025 3:19 PM EDT Spoke with patient's daughter. Daughter will bring patient in for urine. Colten Greer MA * Telephone Encounter - Walt Robles APRN.CNP - 02/19/2025 3:03 PM EDT Please call patient and have her come back in and give a urine culture. documented in this encounterP[facility] Hospital04-03-2025 Telephone encounter Note * Telephone Encounter - Walt Robles APRN.CNP - 02/19/2025 3:03 PM EDT Please call patient and have her come back in and give a urine culture. [facility]04-03-2025 NoteHNO ID: [id number] Author: WALT ROBLES APRN.OCEAN EXPORT COORDINATOR Service: ? Author Type: Nurse Practitioner Type: Progress Notes Filed: 02/19/2025 12:00 Note Text: [facility] Subjective Michaela Barndt is a 84 year old female. Patient [...] history is provided by the patient. No bath attendant was used. Review of Systems Constitutional: Negative. [...] be changed please change accordingly. Walt Robles APRN.[facility] History of Present illness Narrative* Walt Robles APRN.OCEAN EXPORT COORDINATOR - 02/19/2025 11:37 AM EDT [facility] [...] history is provided by the patient. No bath attendant was used. Review of Systems Constitutional: Negative. [...] Robles APRN.CNP MDM Procedures documented in this encounterPike [facility] Hospital04-02-2025 NoteHNO ID: [id number] Author: MICHAELA DAVILA MA Service: ? Author Type: Semi Conductor Assembler Type: Progress Notes Filed: 02/18/2025 16:19 Note Text: Ambulatory Ear Lavage Pre-treatment: No pre-treatment Treatment: Right ear Equipment and Irrigation solution and Volume used: Single use syringe with single use irrigation tip Water Return flow appearance: Debris Patient tolerated procedure: yes Tympanic membrane assessment: Tympanic membrane assessed by LIP pre and post procedureMer[facility]04-02-2025 History of Present illness Narrative* Michaela Davila MA - 02/18/2025 11:19 AM EDT Ambulatory Ear Lavage Pre-treatment: No pre-treatment Treatment: Right ear Equipment and Irrigation solution and Volume used: Single use syringe with single use irrigation tip Water Return flow appearance: Debris Patient tolerated procedure: yes Tympanic membrane assessment: Tympanic membrane assessed by LIP pre and post procedure * Mariposa Salinas APRN.CNP - 02/18/2025 10:26 AM EDT CC: Patient [...] Level: 2 - Straightforward documented in this encounterPike Community Hospital04-02-2025 NoteHNO ID: [id number] Author: MARIPOSA SALINAS APRN.CNP Service: ? Author [...] testing/treatment Medical Decision Making Level: 2 - [facility]forwardMer[facility] 02-04-2025 NoteHNO ID: [id number] Author: DILLAN SANTIAGO MD Service: ? Author [...] increased anxiety or adv (more content not included)...[facility]03-19-2025 History of Present illness Narrative* Dillan [...] patient consented to the use of ambient Zenring software for draft documentation of the visit consistent with [facility] s Notice of Privacy Practices. Dillan Santiago MD documented in this encounterPike Community Hospital03-19-2025 Instructions* Patient Instructions* Dillan Santiago MD [...] in managing your health. documented in this encounterPike Community Hospital03-19-2025 Telephone encounter Note * Telephone Encounter - Mckenzie LombardoRAMIREZ - 02/04/2025 10:47 AM EDT Patient MyChart message requesting the following refill Refill(s) Requested: Requested Prescriptions Pending Prescriptions Disp Refills donepezil (ARICEPT) 5 mg tablet 30 tablet 11 Sig: Take 1 tablet by mouth daily at bedtime. ALLERGIES No Known Allergies (home) [phone] (cell) Last Office Visit Date: 12/10/2024 Last Distance Health Visit: Visit date not found Future Appointment: 02/04/2025 The patients preferred pharmacy has been captured for this encounter? yes Request is for script(s) to be escript to pharmacy. Mckenzie Lombardo LPN [facility]03-19-2025 Miscellaneous Notes* Telephone Encounter - Mckenzie Lombardo LPN - 02/04/2025 10:47 AM EDT Patient Ioterat message requesting the following refill Refill(s) Requested: Requested Prescriptions Pending Prescriptions Disp Refills donepezil (ARICEPT) 5 mg tablet 30 tablet 11 Sig: Take 1 tablet by mouth daily at bedtime. ALLERGIES No Known Allergies (home) [phone] (cell) Last Office Visit Date: 12/10/2024 Last Distance Health Visit: Visit date not found Future Appointment: 02/04/2025 The patients preferred pharmacy has been captured for this encounter? yes Request is for script(s) to be escript to pharmacy. Mckenzie Lombardo LPN documented in this encounterPike [facility] Hospital03-13-2025 Telephone encounter Note * Telephone Encounter - Michaela Davila MA - 01/29/2025 8:47 AM EDT Please assist patient in scheduling geriatric follow up to review MRI results per Dr Santiago. [facility]03-13-2025 Miscellaneous Notes* Telephone Encounter - Michaela [...] Regards, Dillan Santiago MD documented in this encounterPike Community Hospital03-13-2025 Telephone encounter Note * Telephone Encounter [...] appointment with me. Regards, Dillan Santiago MD [facility]03-10-2025 Miscellaneous Notes* Telephone Encounter - Michaela Davila MA - 01/26/2025 2:39 PM EDT Please see patient directions for use. Patient will run out of medication before fill date. documented in this encounterPike [facility] Hospital03-10-2025 Telephone encounter Note * Telephone Encounter - Michaela Davila MA - 01/26/2025 2:39 PM EDT Please see patient directions for use. Patient will run out of medication before fill date. [facility]03-10-2025 Telephone encounter Note* Telephone Encounter - [...] Please review and advise, Kecia Red RN [facility]03-10-2025 Miscellaneous Notes* Telephone Encounter - Kecia [...] advise, Kecia Red RN documented in this encounterPike Community Hospital03-08-2025 History of Present illness Narrative* Manisha Joseph, RT(R) - 01/24/2025 12:30 PM ESTSummary: MRI [...] PATIENT PRESENTS WITH AN IMPLANTABLE OR ATTACHED CLINICAL SUPERVISOR: No RADIOLOGY DEPARTMENT: MR; Exam(s) Completed: Head: Routine Brain (QUANT) PERIPHERAL IV DATA: Not applicable SIGNED BY: ROGELIO Osborne)(MR) January 24, 2025 1:31 PM documented in this encounterPike Community Hospital03-08-2025 NoteHNO ID: [id number] Author: MANISHA JOSEPH RT(R) Service: Radiology Author [...] PATIENT PRESENTS WITH AN IMPLANTABLE OR ATTACHED CLINICAL SUPERVISOR: No RADIOLOGY DEPARTMENT: MR; Exam(s) Completed: Head: Routine Brain (QUANT) PERIPHERAL IV DATA: Not applicable SIGNED BY: RT [place](R)(MR) January 24, 2025 1:31 [facility] Telephone encounter Note* Telephone Encounter - Mariposa Salinas APRN.CNP - 01/22/2025 3:13 PM EST PDMP website checked and validated. All prescriptions have been APPROPRIATELY filled. No suspiciousactivity was identified. 01/22/2025 by Mariposa Salinas APRN.CNP [facility]03-06-2025 Miscellaneous Notes* Telephone Encounter - Mariposa Salinas APRN.CNP - 01/22/2025 3:13 PM EST [facility]. All [facility] have [...] you. Radha Haro LPN. documented in this encounterPike [facility] Hospital03-05-2025 Telephone encounter Note * Telephone Encounter [...] Please advise. Thank you. Radha Haro LPN. [facility]02-13-2025 Telephone encounter Note* Telephone Encounter - [...] Cruz LPN January 01, 2025 8:02 AM [facility]02-13-2025 Miscellaneous Notes* Telephone Encounter - Jada [...] 01, 2025 8:02 AM documented in this encounterPike Community Hospital02-06-2025 Telephone encounter Note * Telephone Encounter - Nusrat Crespo LPN - 12/25/2024 12:50 PM EST Received one lab from [email or web address] via [employer]. Uploaded to [employer] via [employer]. Nusrat Crespo LPN [facility]02-06-2025 Miscellaneous Notes* Telephone Encounter - Nusrat Crespo LPN - 12/25/2024 12:50 PM EST Received one lab from [employer] via [employer]. Uploaded to [employer] via [employer]. Nusrat Crespo LPN * Telephone Encounter - Nusrat Crespo LPN - 12/23/2024 4:45 PM EST Faxed signed Authorization to Disclose Health Information to [facility] to office of Dr. Ovalle for urological records. Nusrat Crespo LPN documented in this encounterPike Community Hospital02-04-2025 Telephone encounter Note * Telephone Encounter - Nusrat Crespo LPN - 12/23/2024 4:45 PM EST Faxed signed Authorization to Disclose Health Information to [facility] to office of Dr. Ovalle for urological records. Nusrat Crespo LPN [facility]02-04-2025 NoteHNO ID: [id number] Author: GRAZYNA BRIGHT RN Service: ? Author Type: Physician Time Clock Repairer Type: Progress Notes Filed: 05/19/2025 09:06 Note Text: [facility] [place] [facility] NEW PATIENT CLINIC NOTE (F) SERVICE [...] for permanent urinary reten (more content not included)...[facility]02-04-2025 History of Present illness Narrative* Tom Baltazar PA-C - 12/23/2024 10:59 AM EST Images from the original note were not included. [facility] [place] [facility] NEW PATIENT CLINIC NOTE [...] VADIM Stanford MT, PA-C documented in this encounterPike Community Hospital01-28-2025 Miscellaneous Notes* Telephone Encounter - Colten Greer MA - 12/16/2024 2:33 PM EST Spoke with Giovanni at [facility]. Once he has seen the patient and admitted into their program, he will be faxing forms for Dr. Santiago to sign. Patient's daughter informed and we will await forms. Colten Greer MA * Telephone Encounter - Mckenzie Lombardo LPN - 12/12/2024 2:28 PM EST Called [facility] for [facility]nd time, left message with Intake. To call office back [facility]# [phone] Mckenzie EugeneRAMIREZ December 12, 2024 2:29 PM * Telephone Encounter - Colten Greer MA - 12/10/2024 2:10 PM EST Patient's daughter states that [facility] needs something from Dr. Santiago that its ok for patient to attend but not sure what exactly is needed. Phone call to [facility] for intake to contact our office to see what information they need from us. Colten Greer MA documented in this encounterPike Community Hospital01-28-2025 Telephone encounter Note * Telephone Encounter - Colten Greer MA - 12/16/2024 2:33 PM EST Spoke with Giovanni at [facility]. Once he has seen the patient and admitted into their program, he will be faxing forms for Dr. Santiago to sign. Patient's daughter informed and we will await forms. Colten Greer MA [facility]01-27-2025 Telephone encounter Note* Telephone Encounter - Mariposa Salinas APRN.CNP - 12/15/2024 7:14 AM EST PDMP website checked and validated. All prescriptions have been APPROPRIATELY filled. No suspiciousactivity was identified. 12/15/2024 by Mariposa Salinas APRN.CNP [facility]01-27-2025 Miscellaneous Notes* Telephone Encounter - Mariposa Salinas APRN.CNP - 12/15/2024 7:14 AM EST PDMP website checked and validated. All prescriptions have been APPROPRIATELY filled. No suspiciousactivity was identified. 12/15/2024 by Mariposa Salinas APRN.CNP * Telephone Encounter - Mckenzie Lombardo LPN - 12/12/2024 3:16 PM EST Patient [employer] message requesting the following refill Refill(s) Requested: Requested Prescriptions Pending Prescriptions Disp Refills clonazePAM (KLONOPIN) 0.5 mg tablet 45 tablet 0 Sig: Take 1 tablet by mouth three times a day as needed for anxiety for up to 30 days. ALLERGIES No Known Allergies (home) [phone] (cell) Last Office Visit Date: 11/05/2024 Last Distance Health Visit: Visit date not found Future Appointment: 02/04/2025 The patients preferred pharmacy has been captured for this encounter? yes Request is for script(s) to be escript to pharmacy. Mckenzie Lombardo LPN documented in this encounterPike [facility] Hospital01-24-2025 Telephone encounter Note * Telephone Encounter - Mckenzie Lombardo LPN - 12/12/2024 3:16 PM EST Patient Ioterat message requesting the following refill Refill(s) Requested: Requested Prescriptions Pending Prescriptions Disp Refills clonazePAM (KLONOPIN) 0.5 mg tablet 45 tablet 0 Sig: Take 1 tablet by mouth three times a day as needed for anxiety for up to 30 days. ALLERGIES No Known Allergies (home) [phone] (cell) Last Office Visit Date: 11/05/2024 Last Distance Health Visit: Visit date not found Future Appointment: 02/04/2025 The patients preferred pharmacy has been captured for this encounter? yes Request is for script(s) to be escript to pharmacy. Mckenzie Lombardo LPN [facility]01-24-2025 Telephone encounter Note* Telephone Encounter - Eugene MckenzieRAMIREZ - 12/12/2024 2:28 PM EST Called [facility] for [facility]nd time, left message with Intake. To call office back [facility]# [phone] Mckenzie EugeneRAMIREZ December 12, 2024 2:29 PM [facility]01-22-2025 Telephone encounter Note* Telephone Encounter - Colten Greer MA - 12/10/2024 2:10 PM EST Patient's daughter states that [facility] needs something from Dr. Santiago that its ok for patient to attend but not sure what exactly is needed. Phone call to [facility] for intake to contact our office to see what information they need from us. Colten Greer MA [facility]01-22-2025 NoteHNO ID: [id number] Author: COLTEN GREER MA Service: ? Author Type: Semi Conductor Assembler Type: Progress Notes Filed: 12/10/2024 17:10 Note Text: Patient presents for geriatric consult with daughter Teodora. Rooming intake completed with patient and Teodora to ensure accuracy. PHQ-9 and MOCA reviewed with patient and entered into questionnaires. Colten Greer [facility]01-22-2025 History of Present illness Narrative* Colten Greer MA - 12/10/2024 1:11 PM EST Patient presents for geriatric consult with daughter Teodora. Rooming intake completed with patient and Teodora to ensure accuracy. PHQ-9 and MOCA reviewed with patient and entered into questionnaires. Colten Greer MA * Dillan Santiago MD - 12/10/2024 12:54 PM EST [facility] Initial Consult Michaela Brandt [...] on her own. They are looking into [facility]. Have cameras installed so they [...] she knows and feels. Just moved to [place] where her daughter lives after needing to sell her 3 story home to allow her to continue to live independently. [place] PCP was Ludin Richey in the [place] area. Is now in her own 1 level apartment. Needs assistance with medication dispensing and is needing support to drive herto appointments and to the store. Is hoping to go to [facility] a few times a week as well. [...] UTIs and followed with a urologist in [place]. Denies abdominal pain, fever, chills, or dark/foul [...] secure location? No Social History: Primary language: Turkish Marital Status: Living situation: Home w/ Family Socially engaged? (participates in activities such as clubs, latter day, community center, sports, games, visiting friends/relatives, etc?): YES once a week she goes out. 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 NO [...] , Taking? Yes, Authorizing Provider Mariposa Salinas APRN.OCEAN EXPORT COORDINATOR Medication escitalopram oxalate (LEXAPRO) 20 mg tablet, Sig Take 1 tablet by mouth once daily., Start Date 11/05/24, End Date , Taking? Yes, Authorizing Provider Mariposa Salinas APRN.OCEAN EXPORT COORDINATOR Medication traZODone (DESYREL) 50 mg tablet, Sig Take 1 tablet by mouth daily at bedtime., Start Date 11/05/24, End Date , Taking? Yes, Authorizing Provider Mariposa Salinas APRN.OCEAN EXPORT COORDINATOR Medication clonazePAM (KLONOPIN) 0.5 mg tablet, Sig Take 1 tablet by mouth three times a day as needed for anxiety for up to 30 days., Start Date 11/05/24, End Date 12/05/24, Taking? , Authorizing Provider Mariposa Salinas APRN.OCEAN EXPORT COORDINATOR Other OTC med/supplements: None Medication Review: - ANY HIGH RISK MEDICATIONS (STOPP CRITERIA): NO ALLERGIES No Known Allergies Review of Systems Difficulty chew/swallow: No Pain: No Tremor: No Incontinence - During the last 3 months did you leak urine? NO Constipation/Change in bowel habits: NO Vision No vision problems reported Follows with shuttle final inspector:YES Hearing - Hearing aid : Denies [...] encouraged to make her paper work for [employer] and living mike. REFERRALS AND RECOMMENDATIONS 1. Discussed the cognitive benefits of memory exercises and reviewed examples 2. Discussed the cognitive benefits of physical exercise and socialization Dillan Santiago MD [facility] NoteHNO ID: [id number] Author: DILLAN SANTIAGO MD Service: ? Author Type: Physician Type: Progress Notes Filed: 12/10/2024 17:10 Note Text: [facility] Initial Consult Michaela Brandt [...] on her own. They are looking into [facility] day care. Have cameras installed so they [...] she knows and feels. Just moved to [place] where her daughter lives after needing to sell her 3 story home to allow her to continue to live independently. Last PCP was Ludin Richey in the [place]. Is now in her own 1 level apartment. Needs assistance with medication dispensing and is needing support to drive her to appointments and to the store. Is hoping to go to [employer] a few times a week as well. [...] UTIs and followed with a urologist in [place]. Denies abdominal pain, fever, chills, or dark/foul [...] secure location? No Social History: Primary language: Turkish Marital Status: Living situation: Home w/ Family Socially engaged? (participates in activities such as clubs, latter day, community center, sports, games, visiting friends/relatives, etc?): YES once a week she goes out. 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 NO [...] , Taking? Yes, Authorizing Provider Mariposa Salinas APRN.OCEAN EXPORT COORDINATOR Medication escitalopram oxalate (LEXAPRO) 20 m (more content not included)... [facility]01-03-2025 Telephone encounter Note* Telephone Encounter - Mariposa Salinas APRN.CNP - 11/21/2024 1:10 PM EST Recently filled by Dr. Kaiden Salinas APRN.OCEAN EXPORT COORDINATOR [facility]01-03-2025 Miscellaneous Notes* Telephone Encounter - Mariposa [...] 30 days. ALLERGIES No Known Allergies (home) [phone] (cell) Last Office Visit Date: 11/05/2024 Last Distance Health Visit: Visit date not found Future Appointment: 02/04/2025 The patients preferred pharmacy has been captured for this encounter? yes Request is for script(s) to be escript to pharmacy. Mckenzie Lombardo LPN [facility] Telephone encounter Note * Telephone Encounter - Rosaura Melchor MD - 11/16/2024 8:12 PM EST RX filled 11/13 per PDMP Ludin Kaiden prescribed med Kevin Mariposa also sent RX 11/05 Check with patient if got RX. If not, check with pharmacy [facility] Work Phone: [phone]) 735-273912-27-2024 Telephone encounter Note* Telephone Encounter - Mckenzie Lombardo LPN - 11/14/2024 8:16 AM EST Family member Ioterat message requesting the following refill Refill(s) Requested: Requested Prescriptions Pending Prescriptions Disp Refills clonazePAM (KLONOPIN) 0.5 mg tablet 45 tablet 0 Sig: Take 1 tablet by mouth three times a day as needed for anxiety for up to 30 days. ALLERGIES No Known Allergies (home) [phone] (cell) Last Office Visit Date: 11/05/2024 Last [facility] Visit: Visit date not found Future Appointment: 02/04/2025 The patients preferred pharmacy has been captured for this encounter? yes Request is for script(s) to be escript to pharmacy. Mckenzie Lombardo LPN [facility]12-19-2024 Telephone encounter Note* Telephone Encounter - Jada Dela Cruz LPN - 11/06/2024 8:39 AM EST Received a request from pt's pharmacy. See message from pharmacy. Jada Dela Cruz LPN [facility]12-19-2024 Miscellaneous Notes* Telephone Encounter - Jada Dela Cruz LPN - 11/06/2024 8:39 AM EST Received a request from pt's pharmacy. See message from pharmacy. Jada Dela Cruz LPN [facility] in [facility]12-[facility]-2024 NoteHNO ID: [id number] Author: MARIPOSA SALINAS APRN.OCEAN EXPORT COORDINATOR Service: ? Author Type: Nurse Practitioner Type: Progress Notes Filed: 11/05/2024 15:38 Note Text: CC: Patient presents with: Establish Care: Establish Care HPI Michaela Brandt is a 84 year old female who presents today for establish care. Just moved to [place] where her daughter lives after needing to sell her 3 story home to allow her to continue to live independently. [place] PCP was Ludin Richey [place]. Is now in her own 1 level apartment. Needs assistance with medication dispensing and is needing support to drive her to appointments and to the store. Is hoping to go to [employer] a few times a week as well. [...] UTIs and followed with a urologist in [place]. Denies abdominal pain, fever, chills, or dark/foul [...] done Influenza Vaccine(1) Never done Covid-19 Vaccine( season) due on 07/20/2024 DATA REVIEWED: Outside [...] 311, ICD10: F41.9, F32.A (more content not included)...[facility]12-18-2024 History of Present illness Narrative* Mariposa Salinas APRN.[facility] - 11/05/2024 2:39 PM EST CC: Patient presents with: Establish Care: Establish Care HPI Michaela Brandt is a 84 year old female who presents today for establish care. Just moved to [place] where her daughter lives after needing to sell her 3 story home to allow her to continue to live independently. Last PCP was Ludin Richey [place] the [place]. Is now in her own 1 level apartment. Needs assistance with medication dispensing and is needing support to drive herto appointments and to the store. Is hoping to go to [employer] a few times a week as well. [...] UTIs and followed with a urologist in [place]. Denies abdominal pain, fever, chills, or dark/foul [...] - Instructed patient to contact office or [id number] after-hours promptly should condition worsen or any new symptoms appear. - [facility] and after hours crisis line 3. Hypothyroidism, [...] on exam table due to balance - NON-[facility] - CONSULT TO GERIATRICS 5. Ambulates with cane - ICD9: V46.8, ICD10: Z99.89 As above - NON-[facility] - CONSULT TO GERIATRICS 6. Concern about memory - ICD9: V65.5, ICD10: Z71.1 Patient denies but did have moments of not remembering past information correctly. Daughter feels memory is a concern. - lives alone so needs medication dispenser to help patient appropriately take her medications. - NON-[facility] - COMPREHENSIVE METABOLIC PANEL [...] for her to independently bathe herself. - NON-[facility] - CONSULT TO GERIATRICS [...] plan. Mariposa Salinas APRN.CNP documented in this encounterPike Community HospitalDischar summary Author Domingo Darby [facility] Note Date/Time May 17, 2025 11:3 3am [facility] Medical Records Department [address] [place] [address] Emergency Department Summary 05/17/25 MR#: [id number] Acct: [id number] Name: MICHAELA BRANDT Rep #:[id number] : [...] her occupational and physical therapy and some fci. They also have cameras in and keep [...] similar symptoms: Yes Recent Illness/Hospitalization: Yes PFSH [facility] Medical History Closed intertrochanteric fracture of [...] MDM MDM Narrative Medical decision making narrative: [id number] female with dementia lives at home with [...] 78.8 H Lymph % (Auto) 14.1 L [place] % (Auto) 5.1 Eos % (Auto) 0.9 Baso % (Auto) 0.6 Absolute Neuts (auto) 6.9 Absolute Lymphs (auto) 1.24 Nucleated RBC % 0 Sodium 142 Potassium 3.9 Chloride 104 Carbon Dioxide 26.5 Anion Gap 12 BUN 15 Creatinine 0.96 Est GFR (MDRD) Non-Af 58 L BUN/Creatinine Ratio 15.6 Glucose 97 Calcium 9.0 Urine Color Yellow Urine Clarity Clear Urine pH 6.0 Ur Specific [place] 1.020 Urine Protein 30 H Urine Glucose [...] improving or return if worse. Print Language: Turkish Disposition Disposition: Home, Self Care What to do if you have Problems For any increased pain, shortness of breath, bleeding, nausea or vomiting, chestpain, or any unexpected problems, contact your Primary Care Provider. Call [facility] ([phone]) or report to the closest Emergency Room. Call 911 if necessary. 05/17/25 1133 <Electronically signed by Domingo Darby MD> Cosigner Signature (if applicable): CC: Dr. Dillan Santiago MD ~ Signed [facility] Work Phone: Evaluation note* Diagnosis Onset Date Resolution Status Osteoarthritis of knees, bilateral noneactive [facility] Work Phone: Evaluation note* [...] Other urinary problems documented in this encounter [facility] note* Diagnosis Hypothyroidism, unspecified type documented in this encounter [facility] note* Diagnosis Hypothyroidism, unspecified type documented in this encounter [facility] note* Diagnosis Anxiety and depression Dysthymic disorder documented in this encounter [facility] note* Diagnosis Anxiety and depression Dysthymic disorder documented in this encounter [facility] note* Diagnosis Cognitive impairment, mild, so stated- Primary Mild cognitive impairment, so stated Self-catheterizes urinary bladder Other specified conditions influencing health status Balance disorder Other symptoms involving nervous and musculoskeletal systems Concern about memory Anxiety and depression Dysthymic disorder Assistance needed for bathing Ambulates with cane documented in this encounter [facility] note* Diagnosis Anxiety and depression Dysthymic disorder documented in this encounter [facility] note* Diagnosis Anxiety and depression Dysthymic disorder documented in this encounter [facility] note* Diagnosis Retention of urine, unspecified- Primary Self-catheterizes urinary bladder Other specified conditions influencing health status Urinary problem Other urinary problems documented in this encounter [facility] note* Diagnosis Anxiety and depression Dysthymic disorder documented in this encounter [facility] note* Diagnosis Ambulatory dysfunction- Primary Difficulty in walking documented in this encounter [facility] note* Diagnosis Anxiety and depression Dysthymic disorder documented in this encounter [facility] note* Diagnosis Cognitive impairment, mild, so stated Mild cognitive impairment, so stated documented in this encounter [facility] note* Diagnosis Anxiety and depression Dysthymic disorder documented in this encounter [facility] note* Diagnosis 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, psychotic disturbance, mood disturbance, or anxiety ([facility])- Primary Impacted cerumen, right ear Insomnia due to mental disorder Generalized anxiety disorder documented in this encounter [facility] note* Diagnosis Impacted cerumen of right ear- Primary Impacted cerumen documented in this encounter [facility] note* Diagnosis Recurrent UTI (urinary tract infection)- Primary Urinary tract infection, site not specified [facility] Urinary frequency- Primary [facility] Diagnosis Anxiety and depression Dysthymic disorder documented in this encounter [facility] note* Diagnosis 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, psychotic disturbance, mood disturbance, or anxiety ([facility])- Primary Ambulatory dysfunction Difficulty in walking [facility]* Diagnosis Onset Date Resolution Status Admit Date Acute pain of left knee acute A pril 2024 1:47pm Closed intertrochanteric fra cture of left hip acute March 01, 2025 1:47pm Fall acute March 01 1:47pm [facility] Work Phone: Evaluation note* Diagnosis Ambulatory dysfunction- Primary Difficulty in walking Weakness of both lower extremities Balance disorder Other symptoms involving nervous and musculoskeletal systems S/P hip hemiarthroplasty Hip joint replacement by other means Closed fracture of left hip with delayed healing, subsequent encounter 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 ([facility]) Pressure injury of sacral region, unstageable ([facility]) Urinary catheter in place Other postprocedural status Malnutrition, unspecified type ([facility]) Anxiety and depression Dysthymic disorder Insomnia, unspecified type Acute deep vein thrombosis (DVT) of proximal vein of left lower extremity ([facility]) Chronic anticoagulation Long-term (current) use of anticoagulants Pressure injury of left buttock, stage 3 ([facility]) [facility]* Diagnosis Onychomycosis- Primary Dermatophytosis of nail [facility]* Diagnosis Hypothyroidism, unspecified type Anxiety and depression Dysthymic disorder [facility]* Diagnosis Acute heart failure, unspecified heart failure type (HCC)- Primary Prediabetes Other abnormal glucose Urinary retention Retention of urine, unspecified Acute deep vein thrombosis (DVT) of calf muscle vein of left lower extremity ([facility]) Edema, unspecified type Self-catheterizes urinary bladder Other specified conditions influencing health status Weakness of both lower extremities S/P hip hemiarthroplasty Hip joint replacement by other means [facility]* Diagnosis Recurrent UTI- Primary Urinary tract [...] nail) Ingrowing nail [facility]* Diagnosis Onychomycosis Dermatophytosis of nail [facility]* Diagnosis Anxiety and depression Dysthymic disorder [facility]* Diagnosis Pressure injury of right buttock, stage 2 (HCC)- Primary Chronic indwelling Lizarraga catheter Other postprocedural status Anxiety and depression Dysthymic disorder Lymphocytosis Lymphocytosis (symptomatic) Acute heart failure, unspecified heart failure type (HCC) Leukocytosis, unspecified type Recurrent falls Personal history of fall [facility]* Diagnosis Hypothyroidism, unspecified type [facility]* Diagnosis Hypothyroidism, unspecified type documented [facility] this encounter [facility] Author Cindy Molina [facility] Note Date/Time June 20, 2025 2:5 5pm [facility] Medical Records Department [address] [place] [address] H&P Exam - Hospitalist 06/20/25 1425 MR#: [id number] Acct: [id number] Name: MICHAELA BRANDT Rep #:[id number] : 1940 84 From: Cindy Molina MD PCP: Dr. Dillan Santiago MD Status:ADM I N Location: [facility] [id number] HPI - General General Date of Admission: 06/20/25 Date of Service: 06/20/25 Chief Complaint: Knee pain after fall HPI Narrative MICHAELA BRANDT, is a 84-year-old female history of hypothyroidism, dementia, urinary self catheterization, hypertension, depression, on Eliquis who [facility] after a fall. Reportedly [...] yet. No fevers or other acute complaints [facility] Medical History (Updated 06/20/25 @ 14:55 by [...] Narrative General: Alert, knows she is at [facility], initially thought year was 2028 but [...] 89.2 H, Lymph % (Auto) 3.5 L, [place] % (Auto) 5.6, Eos % (Auto) 0.0, [...] Clarity Clear, Urine pH 5.0, Ur Specific [place] 1.015, Urine Protein 30 H, Urine Glucose [...] findings. Chronic findings as described. Reading Location: [facility] Cervical Spine CT 06/20/25 08:48 IMPRESSION: NO ACUTE CERVICAL FRACTURE. DEGENERATIVE CHANGES. Reading Location: [facility] Chest/Abdomen/Pelvis CT 06/20/25 08:48 IMPRESSION: CT [...] ultrasound recommended for further evaluation. Reading Location: [id number] Elbow X-Ray 06/20/25 09:50 IMPRESSION: Osteopenia, no demonstrated fracture or joint space abnormalities Reading Location: [id number] Hip/Pelvis X-Ray 06/20/25 09:50 IMPRESSION: Despite the presence of surgical hardware in the left femur, I suspect there is nonunion of the previously noted intertrochanteric fracture. There is still evidence of fracture lucency and cortical irregularity. No hardware complication noted. 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 Reading Location: [id number] Knee X-Ray 06/20/25 09:50 IMPRESSION: Tricompartmental arthrosis with chondrocalcinosis, no demonstrated acute fracture or suspicious osseous lesion Surgical hardware in the patella from previous ORIF free of complication Reading Location: [id number] Knee X-Ray 06/20/25 09:50 IMPRESSION: DEGENERATIVE OSTEOARTHROSIS. NO ACUTE FINDINGS. Reading Location: [facility] Assessment & Plan Assessment/Plan (1) Fall: (2) [...] Molina MD Charges/Coding Visit Charges Inpatient E&M: 29931 Init Hosp L2 06/20/25 8505 <Electronically signed by Cindy Molina MD> Cosigner Signature (if applicable): CC: Dr. Dillan Santiago MD; Dr. Cindy Molina MD~ Signed [facility] Work Phone: Hospital Discharge instructionsAmbulatory Orders* [...] doctor if not improving or return if worse.[facility] Work Phone: Rekzcn for referral (narrative)No reason for referral information availableWMercy Health [facility] Work Phone: Reveul for visit Narrative* MRI/CT (Routine) - Closed Specialty Diagnoses / Procedures Referred By Contac t Referred To Contact MR IMAGING Diagnoses Cognitive impairment, mild, so stated Procedures MRI BRAIN W QUANT WO IVCON MRI BRAIN BRAIN STEM W/O CONTRAST MATERIAL Dillan Santiago MD [address] [facility] [place] [address] Phone: tel: fax: [place] [address] Referral ID Status Reason Start Date Expiration Date V isits Requested Visits Authorized [id number] Closed Auto-Generate d Referral 12/10/2024 01/09/2026 1 1 [facility] Summary Purpose Family History Relationship Condition Age at Onset Recorded Date/T aaliyah Not Specified Malignant neoplasm of prostate Unknown Relationship Condition Age at Onset Recorded Date/T aaliyah Not Specified Hypertension Unknown Advance Directives Advance Directive Response Recorded Date/ Time Advance Directives Yes October 6:36am Documents on File Type Date Recorded Patient Associate Dentist Expl anation Advance Directive(s) 11/24/2024 11:36 AM Documents on File Type Date Recorded Patient Associate Dentist Expl anation Advance Directive(s) 11/24/2024 11:36 AM Advance Directive Response Recorded Date/ Time Living Will Yes January 17, 2025 7:42pm Do you have a Healthcare Pow er of Cheesemaking Laborer? Yes January 17, 2025 7:42pm Name of Medical Power of Cheesemaking Laborer MARIBETH COLTON ALVINAEMILY January 17, 2025 7:42pm Advance Directive Response Recorded Date/ Time Living Will Yes January 17, 2025 7:42pm Do you have a Healthcare Pow er of Cheesemaking Laborer? Yes January 17, 2025 7:42pm Name of Medical Power of Cheesemaking Laborer MARIBETH COLTON ALVINAEMILY January 17, 2025 7:42pm Living Will No March 01, 2025 3:09pm Do you have a Healthcare Pow er of Cheesemaking Laborer? No March 01, 2025 3:09pm Advance Directive Response Recorded Date/ Time Living Will No March 05, 2025 10:51am Do you have a Healthcare Pow er of Cheesemaking Laborer? Yes March 05, 2025 10:51am Name of Medical Power of Cheesemaking Laborer MARIBETH SHIN, DAUGHTER March 05, 2025 10:51a m Living Will Yes January 17, 2025 7:42pm Do you have a Healthcare Pow er of Cheesemaking Laborer? Yes January 17, 2025 7:42pm Name of Medical Power of Cheesemaking Laborer MARIBETH NOLENEMILY January 17, 2025 7:42pm Living Will No March 01, 2025 3:09pm Do you have a Healthcare Pow er of Cheesemaking Laborer? No March 01, 2025 3:09pm Advance Directive Response Recorded Date/ Time Living Will No March 05, 2025 10:51am Do you have a Healthcare Pow er of Cheesemaking Laborer? Yes March 05, 2025 10:51am Name of Medical Power of Cheesemaking Laborer MARIBETH SHIN, DAUGHTER March 05, 2025 10:51a m Living Will Yes January 17, 2025 7:42pm Do you have a Healthcare Pow er of Cheesemaking Laborer? Yes January 17, 2025 7:42pm Name of Medical Power of Cheesemaking Laborer MARIBETH SHIN January 17, 2025 7:42pm Living Will No March 01, 2025 3:09pm Do you have a Healthcare Pow er of Cheesemaking Laborer? No March 01, 2025 3:09pm Do you have a Healthcare Pow er of Cheesemaking Laborer? Yes May 17, 2025 9:33am Advance Directive Response Recorded Date/ Time Living Will No March 05, 2025 10:51am Do you have a Healthcare Pow er of Cheesemaking Laborer? Yes March 05, 2025 10:51am Name of Medical Power of Cheesemaking Laborer MARIBETH SHIN, DAUGHTER March 05, 2025 10:51am Living Will No March 01, 2025 3:09pm Do you have a Healthcare Pow er of Cheesemaking Laborer? No March 01, 2025 3:09pm Do you have a Healthcare Pow er of Cheesemaking Laborer? Yes May 17, 2025 9:33am Advance Directive Response Recorded Date/ Time Living Will No March 05, 2025 10:51am Do you have a Healthcare Pow er of Cheesemaking Laborer? Yes March 05, 2025 10:51am Name of Medical Power of Cheesemaking Laborer MARIBETH SHIN, DAUGHTER March 05, 2025 10:51am Do you have a Healthcare Pow er of Cheesemaking Laborer? No June 20, 2025 8:34am Living Will No March 01, 2025 3:09pm Do you have a Healthcare Pow er of Cheesemaking Laborer? No March 01, 2025 3:09pm Do you have a Healthcare Pow er of Cheesemaking Laborer? Yes May 17, 2025 9:33am Chief Complaint [...] 8:4 1am LABWORK March 23, 2025 5:00am SNF LAB WORK March 30, 2025 5:0 0am SNF LAB WORK April 06, 2025 4:0 0am [...] 8:4 1am LABWORK March 23, 2025 5:00am SNF LAB WORK March 30, 2025 5:0 0am SNF LAB WORK April 06, 2025 4:0 0am [...] 5:00am ADMISSION EXAM March 24, 2025 5:00pm SNF LAB WORK March 30, 2025 5:0 0am SNF LAB WORK April 06, 2025 4:0 0am [...] 5:00am ADMISSION EXAM March 24, 2025 5:00pm SNF LAB WORK March 30, 2025 5:0 0am NEW CONCERN March 30, 2025 4:30p m SNF LAB WORK April 06, 2025 4:0 0am [...] 5:00am ADMISSION EXAM March 24, 2025 5:00pm SNF LAB WORK March 30, 2025 5:0 0am NEW CONCERN March 30, 2025 4:30p m SNF LAB WORK April 06, 2025 4:0 0am [...] 5:00am ADMISSION EXAM March 24, 2025 5:00pm SNF LAB WORK March 30, 2025 5:0 0am NEW CONCERN March 30, 2025 4:30p m SNF LAB WORK April 06, 2025 4:0 0am [...] Referral Specialty Diagnoses / Procedures Referred By Paola bonilla Referred To Contact Gerontology Diagnoses Self-catheterizes urinary bladder Balance disorder Concern about memory Anxiety and depression Assistance needed for bathing Ambulates with cane Procedures CONSULT TO GERIATRICS OFFICE/OUTPATIENT [facility] 60 MINUTES Mariposa Salinas APRN.OCEAN EXPORT COORDINATOR [address] [id number] Referral ID Status Reason Start Date Expiration Date Visits Requested Visits Authorized [id number] Authorized PCP Requested Referral 4 11/05/2025 1 1 Specialty Diagnoses / Procedures Referred By Paola bonilla Referred To Contact Urology Diagnoses Self-catheterizes urinary bladder Unable to void Urinary problem Procedures CONSULT TO UROLOGY OFFICE/OUTPATIENT [facility] 60 MINUTES Mariposa Salinas APRN.OCEAN EXPORT COORDINATOR [address] [place] [address] Referral ID Status Reason Start Date Expiration Date Visits Requested Visits Authorized [id number] Authorized PCP Requested Referral 11/05/2025 1 1 Specialty Diagnoses / Procedures Referred By Paola bonilla Referred To Contact MR IMAGING Diagnoses Cognitive impairment, mild, so stated Procedures MRI BRAIN W QUANT WO IVCON MRI BRAIN BRAIN STEM W/O CONTRAST MATERIAL Dillan Santiago MD [address] [place] [address] [place] [address] Referral ID Status Reason Start Date Expiration Date Visits Requested Visits Authorized [id number] New Request Auto-Generat ed Referral 12/10/2024 01/09/2026 1 1 Additional Source Comments INFORMATION SOURCE (unrecogn ized section and content) DATE CREATED AUTHOR 12/22/2022 [facility] DATE CREATED AUTHOR AUTHOR'S ORGANIZ ATION 01/31/2024 [facility] DATE CREATED AUTHOR AUTHOR'S ORGANIZ ATION 01/26/2025 [facility] nt DATE CREATED AUTHOR AUTHOR'S ORGANIZ ATION 07/28/2025 [facility] DATE CREATED AUTHOR AUTHOR'S ORGANIZ ATION 07/29/2025 [facility] DATE CREATED AUTHOR AUTHOR'S ORGANIZ ATION 07/31/2025 [facility] Care Teams (unrecognized sec tion and content) Team Status: Active Member Role Status Dates Ludin Richey MD Primary Care Provider Active Team Status: Inactive Member Role Status Dates Ludin Richey MD Primary Care Provider Active St art: January 17, 2024 End: January 17, 2024 Ludin Suarez MD Attending Provider Active Start: January 17, 2024 End: January 17, 2024 Training Administrator Relationship Specialty Start Date End Date Dillan Santiago MD [address] [place], [place] [id number] PCP - General Internal Medicine 11/05/24 Training Administrator Relationship Specialty Start Date End Date Dillan Santiago MD [address] [place], [place] [id number] PCP - General Internal Medicine 11/05/24 Training Administrator Relationship Specialty Start Date End Date Dillan Santiago MD [address] [place] [address] PCP - General Internal Medicine 11/05/24 Training Administrator Relationship Specialty Start Date End Date Dillan Santiago MD [address] [place] [address] PCP - General Internal Medicine 11/05/24 Training Administrator Relationship Specialty Start Date End Date Dillan Santiago MD [address] [place] [address] PCP - General Internal Medicine 11/05/24 Training Administrator Relationship Specialty Start Date End Date Dillan Santiago MD [address] [place] [address] PCP - General Internal Medicine 11/05/24 Training Administrator Relationship Specialty Start Date End Date Dillan Santiago MD [address] [place] [address] PCP - General Internal Medicine 11/05/24 Training Administrator Relationship Specialty Start Date End Date Dillan Santiago MD [address] [place] [address] PCP - General Internal Medicine 11/05/24 Training Administrator Relationship Specialty Start Date End Date Dillan Santiago MD [address] [place] [address] PCP - General Internal Medicine 11/05/24 Training Administrator Relationship Specialty Start Date End Date Dillan Santiago MD [address] [place] [address] PCP - General Internal Medicine 11/05/24 Training Administrator Relationship Specialty Start Date End Date Dillan Santiago MD [address] [place] [address] PCP - General Internal Medicine 11/05/24 Training Administrator Relationship Specialty Start Date End Date Dillan Santiago MD [address] [place] [address] PCP - General Internal Medicine 11/05/24 Training Administrator Relationship Specialty Start Date End Date Dillan Santiago MD [address] [place] [address] PCP - General Internal Medicine 11/05/24 Mariposa Salinas APRN.OCEAN EXPORT COORDINATOR [address] [facility] [place] [place] [address] Cookie Breaker Internal Medicine 01/30/25 Training Administrator Relationship Specialty Start Date End Date Dillan Santiago MD [address] [place] [address] PCP - General Internal Medicine 11/05/24 Mariposa Salinas APRN.OCEAN EXPORT COORDINATOR [address] [facility] [place] [place] [address] Cookie Breaker Internal Medicine 01/30/25 Training Administrator Relationship Specialty Start Date End Date Dillan Santiago MD [address] [place] [address] PCP - General Internal Medicine 11/05/24 Mariposa Salinas APRN.OCEAN EXPORT COORDINATOR [address] [facility] [place] [place] [address] Cookie Breaker Internal Medicine 01/30/25 Training Administrator Relationship Specialty Start Date End Date Dillan Santiago MD [address] [facility], [place] [id number] PCP - General Internal Medicine 11/05/24 Mariposa Salinas APRN.OCEAN EXPORT COORDINATOR [address] [facility] [place] [place] [address] Cookie Breaker Internal Medicine 01/30/25 Training Administrator Relationship Specialty Start Date End Date Dillan Santiago MD [address] [place] [address] PCP - General Internal Medicine 11/05/24 Mariposa Salinas APRN.OCEAN EXPORT COORDINATOR [address] [facility] [place] [place] [address] Cookie Breaker Internal Medicine 01/30/25 Training Administrator Relationship Specialty Start Date End Date Dillan Santiago MD [address] [place] [address] PCP - General Internal Medicine 11/05/24 Mariposa Salinas APRN.OCEAN EXPORT COORDINATOR [address] [facility] [place] [place] [address] Cookie Breaker Internal Medicine 01/30/25 Team Status: Active Member Role Status Dates Dr. Dillan Santiago MD Primary Care Provider Active Team Status: Inactive Member Role Status Dates Dr. Vadim Florence , Attending Provider Active Start: January 17, 2025 [...] Provider Active S tart: March 01, 2025 Training Administrator Relationship Specialty Start Date End Date Dillan Santiago MD [address] [place] [address] PCP - General Internal Medicine 11/05/24 Older, ALEX Monge.OCEAN EXPORT COORDINATOR [address] [facility] [place], [place], [place] [address] Cookie Breaker Internal Medicine 01/30/25 Team Status: Inactive Member [...] Provider Active S tart: March 09, 2025 Training Administrator Relationship Specialty Start Date End Date Dillan Santiago MD [address] [place] [address] PCP - General Internal Medicine 11/05/24 Mariposa Salinas APRN.OCEAN EXPORT COORDINATOR [address] [facility] [place] [address] Cookie Breaker Internal Medicine 01/30/25 Training Administrator Relationship Specialty Start Date End Date Dillan Santiago MD [address] [place] [address] PCP - General Internal Medicine 11/05/24 Mariposa Salinas APRN.OCEAN EXPORT COORDINATOR [address] [facility] [place] [place] [address] Cookie Breaker Internal Medicine 01/30/25 Training Administrator Relationship Specialty Start Date End Date Dillan Santiago MD [address] [place] [address] PCP - General Internal Medicine 11/05/24 Mariposa Salinas APRN.OCEAN EXPORT COORDINATOR [address] [facility] [place] [address] Cookie Breaker Internal Medicine 01/30/25 Training Administrator Relationship Specialty Start Date End Date Dillan Santiago MD [address] [place] [address] PCP - General Internal Medicine 11/05/24 Mariposa Salinas APRN.OCEAN EXPORT COORDINATOR [address] [facility] [place] [address] Cookie Breaker Internal Medicine 01/30/25 Training Administrator Relationship Specialty Start Date End Date Dillan Santiago MD [address] [place] [address] PCP - General Internal Medicine 11/05/24 Mariposa Salinas APRN.OCEAN EXPORT COORDINATOR [address] [place] [address] Cookie Breaker Internal Medicine 01/30/25 Training Administrator Relationship Specialty Start Date End Date Dillan Santiago MD [address] [place] [address] PCP - General Internal Medicine 11/05/24 Mariposa Salinas APRN.OCEAN EXPORT COORDINATOR [address] [place] [address] Cookie Breaker Internal Medicine 01/30/25 Training Administrator Relationship Specialty Start Date End Date Dillan Santiago MD [address] [place] [address] PCP - General Internal Medicine 11/05/24 Mariposa Salinas APRN.OCEAN EXPORT COORDINATOR [address] [place] [address] Cookie Breaker Internal Medicine 01/30/25 Team Status: Inactive Member [...] Referring Provider Active Start: April 06, 2025 Training Administrator Relationship Specialty Start Date End Date Dillan Santiago MD [address] [place] [address] PCP - General Internal Medicine 11/05/24 Mariposa Salinas, STEEL MANAGER.OCEAN EXPORT COORDINATOR [address] [facility] [place] [place] [address] Cookie Breaker Internal Medicine 01/30/25 Training Administrator Relationship Specialty Start Date End Date Dillan Santiago MD [address] [place] [address] PCP - General Internal Medicine 11/05/24 Mariposa Salinas, STEEL MANAGER.OCEAN EXPORT COORDINATOR [address] [facility] [place] [address] Cookie Breaker Internal Medicine 01/30/25 Training Administrator Relationship Specialty Start Date End Date Dillan Santiago MD [address] [place] [address] PCP - General Internal Medicine 11/05/24 Mariposa Salinas APRN.OCEAN EXPORT COORDINATOR [address] [facility] [place] [place] [address] Cookie Breaker Internal Medicine 01/30/25 Training Administrator Relationship Specialty Start Date End Date Dillan Santiago MD [address] [place] [address] PCP - General Internal Medicine 11/05/24 Mariposa Salinas APRN.OCEAN EXPORT COORDINATOR [address] [facility] [place] [place] [address] Cookie Breaker Internal Medicine 01/30/25 Training Administrator Relationship Specialty Start Date End Date Dillan Santiago MD [address] [facility], [place] [address] PCP - General Internal Medicine 11/05/24 Mariposa Salinas, STEEL MANAGER.OCEAN EXPORT COORDINATOR [address] [facility] [place] [place] [address] Cookie Breaker Internal Medicine 01/30/25 Team Status: Active Member Role/Relationship Status Dates Dr. Dillan Santiago MD Primary Care Provider Active Team Status: Inactive Member Role/Relationship Status Dates Dr. Vadim Florence , Attending Provider Active Start: January 17, 2025 [...] May 17, 2025 End: May 17, 2025 Training Administrator Relationship Specialty Start Date End Date Dillan Santiago MD [address] [place] [address] PCP - General Internal Medicine 11/05/24 Older, BERNICE MongeN.OCEAN EXPORT COORDINATOR [address] [facility] [place], [place], [place] [address] Cookie Breaker Internal Medicine 01/30/25 Team Status: Inactive Member [...] 2025 End: March 30, 2025 Daya Morgan ROLLING MACHINE TENDER, ROLLING MACHINE TENDER-C Attending Provider Active Start: March 30, 2025 [...] 2025 End: April 17, 2025 Daya Morgan ROLLING MACHINE TENDER, ROLLING MACHINE TENDER-C Attending Provider Active Start: April 17, 2025 [...] May 17, 2025 End: May 17, 2025 Training Administrator Relationship Specialty Start Date End Date Dillan Santiago MD [address] [place] [address] PCP - General Internal Medicine 11/05/24 Mariposa Salinas APRN.OCEAN EXPORT COORDINATOR [address] [place] [address] Cookie Breaker Internal Medicine 01/30/25 Training Administrator Relationship Specialty Start Date End Date Dillan Santiago MD [address] [place] [address] PCP - General Internal Medicine 11/05/24 Mariposa Salinas APRN.OCEAN EXPORT COORDINATOR [address] [place] [address] Cookie Breaker Internal Medicine 01/30/25 Team Status: Active Member Role/Relationship Status Dates Dr. Dillan Santiago MD Primary Care Provider Active Start: June 20, 2025 Dr. Wesley Jones DO Emergency Provider Active Start: June 20, 2025 Dr. Cindy Molina MD Admit Provider Active Star t: June 20, 2025 Dr. Cindy Molina MD Attending Provider Active Start: June 20, 2025 Dr. Cindy Molina MD Other Provider Active Star t: June 20, 2025 Training Administrator Relationship Specialty Start Date End Date Dillan Santiago MD [address] [place] [address] PCP - General Internal Medicine 11/05/24 Mariposa Salinas APRN.OCEAN EXPORT COORDINATOR [address] [place] [address] Cookie Breaker Internal Medicine 01/30/25 Training Administrator Relationship Specialty Start Date End Date Dillan Santiago MD [address] [facility] [place] [address] PCP - General Internal Medicine 11/05/24 Mariposa Salinas APRN.OCEAN EXPORT COORDINATOR [address] [place] [address] Cookie Breaker Internal Medicine 01/30/25 Training Administrator Relationship Specialty Start Date End Date Dillan Santiago MD [address] [place] [address] PCP - General Internal Medicine 11/05/24 Mariposa Salinas APRN.OCEAN EXPORT COORDINATOR [address] [place] [address] Cookie Breaker Internal Medicine 01/30/25 Training Administrator Relationship Specialty Start Date End Date Dillan Santiago MD [address] [place] [address] PCP - General Internal Medicine 11/05/24 Mariposa Salinas APRN.OCEAN EXPORT COORDINATOR [address] [place] [address] Cookie Breaker Internal Medicine 01/30/25 Training Administrator Relationship Specialty Start Date End Date Dillan Santiago MD [address] [place] [address] PCP - General Internal Medicine 11/05/24 Mariposa Salinas APRN.OCEAN EXPORT COORDINATOR [address] [facility] [place] [address] Cookie Breaker Internal Medicine 01/30/25 Goals (unrecognized section and [...] or prosecute any alcohol or drug abuse patient.[facility] the event this information is protected by the Federal Confidentiality of Alcohol and Drug Abuse Patient Records regulations: The Federal rules restrict any use of the information to criminally investigate or prosecute any alcohol or drug abuse patient.[facility] HospitalIn the event this information is protected by the Federal Confidentiality of Alcohol and Drug Abuse Patient Records regulations: The Federal rules restrict any use of the information to criminally investigate or prosecute any alcohol or drug abuse patient.[facility]In the event this information is protected by the Federal Confidentiality of Alcohol and Drug Abuse Patient Records regulations: The Federal rules restrict any use of the information to criminally investigate or prosecute any alcohol or drug abuse patient.[facility] HospitalIn the event this information is protected by the Federal Confidentiality of Alcohol and Drug Abuse Patient Records regulations: The Federal rules restrict any use of the information to criminally investigate or prosecute any alcohol or drug abuse patient.[facility] HospitalIn the event this information is protected by the Federal Confidentiality of Alcohol and Drug Abuse Patient Records regulations: The Federal rules restrict any use of the information to criminally investigate or prosecute any alcohol or drug abuse patient.[facility] HospitalIn the event this information is protected by the Federal Confidentiality of Alcohol and Drug Abuse Patient Records regulations: The Federal rules restrict any use of the information to criminally investigate or prosecute any alcohol or drug abuse patient.[facility] HospitalIn the event this information is protected by the Federal Confidentiality of Alcohol and Drug Abuse Patient Records regulations: The Federal rules restrict any use of the information to criminally investigate or prosecute any alcohol or drug abuse patient.[facility] HospitalIn the event this information is protected by the Federal Confidentiality of Alcohol and Drug Abuse Patient Records regulations: The Federal rules restrict any use of the information to criminally investigate or prosecute any alcohol or drug abuse patient.[facility] HospitalIn the event this information is protected by the Federal Confidentiality of Alcohol and Drug Abuse Patient Records regulations: The Federal rules restrict any use of the information to criminally investigate or prosecute any alcohol or drug abuse patient.[facility] HospitalIn the event this information is protected by the Federal Confidentiality of Alcohol and Drug Abuse Patient Records regulations: The Federal rules restrict any use of the information to criminally investigate or prosecute any alcohol or drug abuse patient.[facility] HospitalIn the event this information is protected by the Federal Confidentiality of Alcohol and Drug Abuse Patient Records regulations: The Federal rules restrict any use of the information to criminally investigate or prosecute any alcohol or drug abuse patient.[facility] HospitalIn the event this information is protected by the Federal Confidentiality of Alcohol and Drug Abuse Patient Records regulations: The Federal rules restrict any use of the information to criminally investigate or prosecute any alcohol or drug abuse patient.[facility] HospitalIn the event this information is protected by the Federal Confidentiality of Alcohol and Drug Abuse Patient Records regulations: The Federal rules restrict any use of the information to criminally investigate or prosecute any alcohol or drug abuse patient.[facility] HospitalIn the event this information is protected by the Federal Confidentiality of Alcohol and Drug Abuse Patient Records regulations: The Federal rules restrict any use of the information to criminally investigate or prosecute any alcohol or drug abuse patient.[facility] HospitalIn the event this information is protected by the Federal Confidentiality of Alcohol and Drug Abuse Patient Records regulations: The Federal rules restrict any use of the information to criminally investigate or prosecute any alcohol or drug abuse patient.[facility] HospitalIn the event this information is protected by the Federal Confidentiality of Alcohol and Drug Abuse Patient Records regulations: The Federal rules restrict any use of the information to criminally investigate or prosecute any alcohol or drug abuse patient.[facility] HospitalIn the event this information is protected by the Federal Confidentiality of Alcohol and Drug Abuse Patient Records regulations: The Federal rules restrict any use of the information to criminally investigate or prosecute any alcohol or drug abuse patient.[facility] HospitalIn the event this information is protected by the Federal Confidentiality of Alcohol and Drug Abuse Patient Records regulations: The Federal rules restrict any use of the information to criminally investigate or prosecute any alcohol or drug abuse patient.[facility] HospitalIn the event this information is protected by the Federal Confidentiality of Alcohol and Drug Abuse Patient Records regulations: The Federal rules restrict any use of the information to criminally investigate or prosecute any alcohol or drug abuse patient.[facility] HospitalIn the event this information is protected by the Federal Confidentiality of Alcohol and Drug Abuse Patient Records regulations: The Federal rules restrict any use of the information to criminally investigate or prosecute any alcohol or drug abuse patient.[facility] HospitalIn the event this information is protected by the Federal Confidentiality of Alcohol and Drug Abuse Patient Records regulations: The Federal rules restrict any use of the information to criminally investigate or prosecute any alcohol or drug abuse patient.[facility] HospitalIn the event this information is protected by the Federal Confidentiality of Alcohol and Drug Abuse Patient Records regulations: The Federal rules restrict any use of the information to criminally investigate or prosecute any alcohol or drug abuse patient.[facility] HospitalIn the event this information is protected by the Federal Confidentiality of Alcohol and Drug Abuse Patient Records regulations: The Federal rules restrict any use of the information to criminally investigate or prosecute any alcohol or drug abuse patient.[facility] HospitalIn the event this information is protected by the Federal Confidentiality of Alcohol and Drug Abuse Patient Records regulations: The Federal rules restrict any use of the information to criminally investigate or prosecute any alcohol or drug abuse patient.[facility] HospitalIn the event this information is protected by the Federal Confidentiality of Alcohol and Drug Abuse Patient Records regulations: The Federal rules restrict any use of the information to criminally investigate or prosecute any alcohol or drug abuse patient.[facility] HospitalIn the event this information is protected by the Federal Confidentiality of Alcohol and Drug Abuse Patient Records regulations: The Federal rules restrict any use of the information to criminally investigate or prosecute any alcohol or drug abuse patient.[facility] HospitalIn the event this information is protected by the Federal Confidentiality of Alcohol and Drug Abuse Patient Records regulations: The Federal rules restrict any use of the information to criminally investigate or prosecute any alcohol or drug abuse patient.[facility] [facility] HospitalIn the event this information is protected by the Federal Confidentiality of Alcohol and Drug Abuse Patient Records regulations: The Federal rules restrict any use of the information to criminally investigate or prosecute any alcohol or drug abuse patient.[facility]In the event this information is protected by the Federal Confidentiality of Alcohol and Drug Abuse Patient Records regulations: The Federal rules restrict any use of the information to criminally investigate or prosecute any alcohol or drug abuse patient.[facility]In the event this information is protected by the Federal Confidentiality of Alcohol and Drug Abuse Patient Records regulations: The Federal rules restrict any use of the information to criminally investigate or prosecute any alcohol or drug abuse patient.[facility]In the event this information is protected by the Federal Confidentiality of Alcohol and Drug Abuse Patient Records regulations: The Federal rules restrict any use of the information to criminally investigate or prosecute any alcohol or drug abuse patient.[facility]In the event this information is protected by the Federal Confidentiality of Alcohol and Drug Abuse Patient Records regulations: The Federal rules restrict any use of the information to criminally investigate or prosecute any alcohol or drug abuse patient.[facility]In the event this information is protected by the Federal Confidentiality of Alcohol and Drug Abuse Patient Records regulations: The Federal rules restrict any use of the information to criminally investigate or prosecute any alcohol or drug abuse patient.[facility]In the event this information is protected by the Federal Confidentiality of Alcohol and Drug Abuse Patient Records regulations: The Federal rules restrict any use of the information to criminally investigate or prosecute any alcohol or drug abuse patient.[facility]In the event this information is protected by the Federal Confidentiality of Alcohol and Drug Abuse Patient Records regulations: The Federal rules restrict any use of the information to criminally investigate or prosecute any alcohol or drug abuse patient.[facility]In the event this information is protected by the Federal Confidentiality of Alcohol and Drug Abuse Patient Records regulations: The Federal rules restrict any use of the information to criminally investigate or prosecute any alcohol or drug abuse patient.[facility] HospitalIn the event this information is protected by the Federal Confidentiality of Alcohol and Drug Abuse Patient Records regulations: The Federal rules restrict any use of the information to criminally investigate or prosecute any alcohol or drug abuse patient.[facility] HospitalIn the event this information is protected by the Federal Confidentiality of Alcohol and Drug Abuse Patient Records regulations: The Federal rules restrict any use of the information to criminally investigate or prosecute any alcohol or drug abuse patient.[facility] HospitalIn the event this information is protected by the Federal Confidentiality of Alcohol and Drug Abuse Patient Records regulations: The Federal rules restrict any use of the information to criminally investigate or prosecute any alcohol or drug abuse patient.[facility]In the event this information is protected by the Federal Confidentiality of Alcohol and Drug Abuse Patient Records regulations: The Federal rules restrict any use of the information to criminally investigate or prosecute any alcohol or drug abuse patient.[facility] HospitalIn the event this information is protected by the Federal Confidentiality of Alcohol and Drug Abuse Patient Records regulations: The Federal rules restrict any use of the information to criminally investigate or prosecute any alcohol or drug abuse patient.[facility]In the event this information is protected by the Federal Confidentiality of Alcohol and Drug Abuse Patient Records regulations: The Federal rules restrict any use of the information to criminally investigate or prosecute any alcohol or drug abuse patient.[facility] HospitalIn the event this information is protected by the Federal Confidentiality of Alcohol and Drug Abuse Patient Records regulations: The Federal rules restrict any use of the information to criminally investigate or prosecute any alcohol or drug abuse patient.[facility] HospitalIn the event this information is protected by the Federal Confidentiality of Alcohol and Drug Abuse Patient Records regulations: The Federal rules restrict any use of the information to criminally investigate or prosecute any alcohol or drug abuse patient.[facility] HospitalIn the event this information is protected by the Federal Confidentiality of Alcohol and Drug Abuse Patient Records regulations: The Federal rules restrict any use of the information to criminally investigate or prosecute any alcohol or drug abuse patient.[facility] HospitalIn the event this information is protected by the Federal Confidentiality of Alcohol and Drug Abuse Patient Records regulations: The Federal rules restrict any use of the information to criminally investigate or prosecute any alcohol or drug abuse patient.[facility] HospitalIn the event this information is protected by the Federal Confidentiality of Alcohol and Drug Abuse Patient Records regulations: The Federal rules restrict any use of the information to criminally investigate or prosecute any alcohol or drug abuse patient.[facility] HospitalIn the event this information is protected by the Federal Confidentiality of Alcohol and Drug Abuse Patient Records regulations: The Federal rules restrict any use of the information to criminally investigate or prosecute any alcohol or drug abuse patient.[facility] HospitalIn the event this information is protected by the Federal Confidentiality of Alcohol and Drug Abuse Patient Records regulations: The Federal rules restrict any use of the information to criminally investigate or prosecute any alcohol or drug abuse patient.[facility] HospitalIn the event this information is protected by the Federal Confidentiality of Alcohol and Drug Abuse Patient Records regulations: The Federal rules restrict any use of the information to criminally investigate or prosecute any alcohol or drug abuse patient.[facility] HospitalIn the event this information is protected by the Federal Confidentiality of Alcohol and Drug Abuse Patient Records regulations: The Federal rules restrict any use of the information to criminally investigate or prosecute any alcohol or drug abuse patient.[facility] HospitalIn the event this information is protected by the Federal Confidentiality of Alcohol and Drug Abuse Patient Records regulations: The Federal rules restrict any use of the information to criminally investigate or prosecute any alcohol or drug abuse patient.[facility] HospitalIn the event this information is protected by the Federal Confidentiality of Alcohol and Drug Abuse Patient Records regulations: The Federal rules restrict any use of the information to criminally investigate or prosecute any alcohol or drug abuse patient.[facility] HospitalIn the event this information is protected by the Federal Confidentiality of Alcohol and Drug Abuse Patient Records regulations: The Federal rules restrict any use of the information to criminally investigate or prosecute any alcohol or drug abuse patient.[facility] HospitalIn the event this information is protected by the Federal Confidentiality of Alcohol and Drug Abuse Patient Records regulations: The Federal rules restrict any use of the information to criminally investigate or prosecute any alcohol or drug abuse patient.[facility]In the event this information is protected by the Federal Confidentiality of Alcohol and Drug Abuse Patient Records regulations: The Federal rules restrict any use of the information to criminally investigate or prosecute any alcohol or drug abuse patient.[facility] HospitalIn the event this information is protected by the Federal Confidentiality of Alcohol and Drug Abuse Patient Records regulations: The Federal rules restrict any use of the information to criminally investigate or prosecute any alcohol or drug abuse patient.[facility] HospitalIn the event this information is protected by the Federal Confidentiality of Alcohol and Drug Abuse Patient Records regulations: The Federal rules restrict any use of the information to criminally investigate or prosecute any alcohol or drug abuse patient.[facility] HospitalIn the event this information is protected by the Federal Confidentiality of Alcohol and Drug Abuse Patient Records regulations: The Federal rules restrict any use of the information to criminally investigate or prosecute any alcohol or drug abuse patient.[facility] HospitalIn the event this information is protected by the Federal Confidentiality of Alcohol and Drug Abuse Patient Records regulations: The Federal rules restrict any use of the information to criminally investigate or prosecute any alcohol or drug abuse patient.[facility] HospitalIn the event this information is protected by the Federal Confidentiality of Alcohol and Drug Abuse Patient Records regulations: The Federal rules restrict any use of the information to criminally investigate or prosecute any alcohol or drug abuse patient.[facility] HospitalIn the event this information is protected by the Federal Confidentiality of Alcohol and Drug Abuse Patient Records regulations: The Federal rules restrict any use of the information to criminally investigate or prosecute any alcohol or drug abuse patient.[facility] HospitalIn the event this information is protected by the Federal Confidentiality of Alcohol and Drug Abuse Patient Records regulations: The Federal rules restrict any use of the information to criminally investigate or prosecute any alcohol or drug abuse patient.[facility] HospitalIn the event this information is protected by the Federal Confidentiality of Alcohol and Drug Abuse Patient Records regulations: The Federal rules restrict any use of the information to criminally investigate or prosecute any alcohol or drug abuse patient.[facility] Reason for Visit (unrecogniz ed section [...] NEW HIGH MDM 60 MINUTES Older, ALEX Monge.[employer] [address] [place] [address] Referral ID Status Reason Start Date Expiration Date V isits Requested Visits Authorized [id number] Closed PCP Requested Referral 11/05/2024 11/05/2025 1 1 Reason Onset Date Comments Refill Request 12/12/2024 Reason Onset Date Comments Refill Request 12/15/2024 Reason Comments Orders Reason Comments New Patient Urinary Retention Specialty Diagnoses / Procedures Referred By Naraac t Referred To Contact Urology Diagnoses Self-catheterizes urinary bladder Unable to void Urinary problem Procedures CONSULT TO UROLOGY OFFICE/OUTPATIENT NEW HIGH MDM 60 MINUTES Older, LAEX Monge.[employer] 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[employer]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 [address] [place] [address] Referral ID Status Reason Start Date Expiration Date V isits Requested Visits Authorized [id number] Closed PCP Requested Referral 11/05/2024 11/05/2025 1 [...] Comments Follow HH Reason Comments ER F/U [facility] 03/01/25 fall-lef t hip FX; 03/02/25 Left hip cephalomedullary nail fixation, 03/04/25 transferred to [facility] TCU for rehabilitation, 03/19/25 transferred to [facility] for continuing rehabilitation Reason Comments Patient Update [...] Comments Home Health Point of Care Results Reason Comments Home Health Orders Reason Comments nail deformity New nail care Specialty Diagnoses / Procedures Referred By Paola bonilla Referred To Contact Podiatry Diagnoses Onychomycosis Procedures OFFICE/OUTPATIENT NEW HIGH [facility] 60 MINUTES Dillan Santiago MD [address] [place] [address] Phone: tel: fax: Referral ID Status Reason Start Date Expiration Date V isits Requested Visits Authorized [id number] Closed PCP Requested Referral 04/24/2025 04/24/2026 1 1 Reason Onset Date Comments Refill Request 07/15/2025 Reason Onset Date Comments Refill Request 07/20/2025 Reason Comments Missed therapy appt Reason Comments delay of care for OT Reason Comments ST Plan of Care FOR RECORDS PERTAINING TO PATIENTS WHO ARE [...] BE BASED ON THE PRIMARY CLINICAL RECORDS. [employer] provides no warranty or guarantee of the accuracy or completeness of information in this document.
[2025-07-31 21:13] LABS: Mucous, Urine 0 SEEN /hpf (<or=2+)
[2025-07-31 21:21] LABS: Hematocrit 37.1 % (37-47); Hemoglobin 12.8 g/dL (12.0-15.0); Immature Granulocytes Count 0.060 X10^3/uL (0.0-0.0); Mean Corp Hgb Conc 34.5 g/dL (32-36); Mean Corpuscular Volume 88.3 fL (81-99); Mean Platelet Vol. 9.7 fl (6.2-12.0); NRBC Flagged by Analyzer 0 % (0-5); Platelet Count 220 K/mm3 (150-450); RBC Distribution Width CV 13.7 % (11.6-14.6); RBC Distribution Width SD 44.5 fl (35.1-43.9); Red Blood Count 4.20 M/mm3 (4.2-5.4); White Blood Count 10.0 K/mm3 (4.4-11.0)
[2025-07-31 21:28] LABS: Color, Urine Yellow (Yellow); Glucose, Dipstick Normal (Normal); Ketone-Dipstick Negative (Negative); Leukocyte Esterase-Dipstick 25 /ul (Negative); Nitrite-Dipstick Positive (Negative); Occult Blood-Urine 25 /ul (Negative); Protein-Dipstick 15 mg/dl (Negative); Specific Gravity, Urine 1.020 (1.002-1.030); Urine Bilirubin Dipstick Negative (Negative)
[2025-07-31 21:36] LABS: Anion Gap 9 (5-15); BUN 21 mg/dL (4-19); BUN/Creat Ratio 28.0 RATIO (10-20); Calcium,Total 9.3 mg/dL (7.6-11.0); Carbon Dioxide 27.4 mmol/L (21.0-32.0); Chloride 103 mmol/L (98-108); Estimated Creatinine Clearance 39.50 ml/min (50-250); Glucose 96 mg/dL (70-99); Potassium 4.1 mmol/L (3.3-5.1)
[2025-07-31 22:00] VITALS: BP 139/41; PULSE 62; O2SAT 91
[2025-07-31 22:05] LABS: Red Blood Cells-Urine 0-5 SEEN /hpf (0-5); Squamous Epithelial Cells - UA 0-5 SEEN /hpf (5-10)
--- NOTE | 2025-07-31 22:40 | EDS_ITS ---
HPI History of Present Illness Chief Complaint: Complaint Detail of Chief Complaint: Patient pulled out Lizarraga that was inserted yesterday and agitation Informant: patient and family Onset/Context/Timing Onset: Today Context: Sudden Onset Timing: Continuous and Waxes and wanes Quality: Traumatic removal of Lizarraga and confusion Location: and generalized Current Severity: Mild Maximum Severity: Mild Worsened by: Sons concerned she has UTI. When she has increased confusion from her base Relieved by: Nothing Associated Symptoms Associated Symptoms: History of UTI with confusion Narrative Narrative: Patient is an 84-year-old woman. She has history of depression anxiety, dementia, hypothyroidism, urinary retention, who was brought to the emergency room because she pulled out her Lizarraga and has had increased confusion. She has history of frequent urinary tract infection due to self-catheterization. The Lizarraga was placed yesterday. Apparently she pulled out to help. She asked if she would have to have this reinserted. She stated she preferred to self catheter self. Patient denies fever, chills night sweats. Patient denies headache, visual, ocular auditory symptoms. Patient denies abdominal pain, nausea or vomiting. Patient has no urinary symptoms. Patient is awake. Cranials 2 through 12 are intact. She moves all extremities. Patient is pleasant. Patient took offense that her son stated she has dementia. Patient is not oriented. Son states this is not abnormal. Prior similar symptoms: Yes (Urinary tract infection) Recent Illness/Hospitalization: No PFSH [facility], LAT[facility] Medical History Abnormal finding on urinalysis Generalized weakness Fall Closed intertrochanteric fracture of left hip Fall Hypothyroidism Anxiety Dementia Self-catheterizes urinary bladder Hypertension Back pain Home Medications ?Medication ?Instructions ?Recorded ?Last Taken ?Type ascorbic acid (vitamin C) 500 mg 500 mg PO DAILY suppl ement 03/01/25 06/19/25 History tablet (C-500) donepezil 10 mg tablet 10 mg PO DAILY dementia 02/1706/19/25 History escitalopram oxalate 20 mg tablet 20 mg PO DAILY anxie ty 03/01/25 06/19/25 History levothyroxine 50 mcg tablet 50 mcg PO DAILY thyroid 06/19/25 History trazodone 50 mg tablet 50 mg PO QHS anxiety 5 06/19/25 History buspirone 5 mg tablet 5 mg PO BID 06/20/25 5 History cholecalciferol (vitamin D3) 125 125 mcg PO DAILY 01/1306/19/25 History mcg (5,000 unit) capsule acetaminophen 500 mg tablet 1,000 mg (2 x 500 mg) PO Q 8 #0 tabs 06/25/25 Unknown Rx clonazepam 0.5 mg tablet 0.5 mg PO Q8H PRN anxiety #6 tabs 06/25/25 Unknown Rx menthol 0.44 %-zinc oxide 20.6 % 1 applic topical BID #0 grams 06/25/25 Unknown Rx topical ointment (Calmoseptine) sennosides 8.6 mg-docusate sodium 2 tab PO BID #0 tabs 06/25/25 Unknown Rx 50 mg tablet (Stimulant Laxative Plus) triamcinolone acetonide 0.1 % 1 applic topical BID #15 grams 06/25/25 Unknown Rx topical cream citalopram 20 mg tablet 20 mg PO DAILY 07/22/25 Unkn own History furosemide 20 mg tablet mg PO 07/22/25 Unknown Histo ry cephalexin 500 mg capsule 500 mg PO Q6 #28 CAPSULES Unknown Rx Allergy/AdvReac Type Severity Reaction Status Date / Time No Known Allergies Allergy Verified 07/31/25 18:08 Family History Other Hypertension Surgical History H/O: hysterectomy Status post right knee replacement Social History household members: none housing: apartment current occupational status: retired other: Daughter lives a few doors down helps her on a regular basis Smoking Status: Never smoker alcohol intake: never substance use type: does not use ROS ROS ED Constitutional Constitutional ED: Denies chills, fever(s) or subjective Eyes Eyes: Denies blurry vision or change in vision Cardiovascular Cardiovascular: Denies chest pain or palpitations Respiratory/Chest Respiratory/Chest: Denies cough, dyspnea or dyspnea on exertion Gastrointestinal Gastrointestinal: Denies abdominal pain, nausea or vomiting Genitourinary Genitourinary ED: Denies dysuria, hematuria or urinary frequency Musculoskeletal Musculoskeletal: Denies back pain Integumentary Denies rash Neurologic Neurologic: Denies headache(s) Hematologic/Lymphatic Hematologic/Lymphatic: Reports systems reviewed and no addt'l complaints, except as documented EXAM Physical Exam Const Vital Signs: 07/31/25 18:08 07/31/25 20:39 07/31/25 22:00 Temperature 98.5 F Temperature Source Oral Pulse Rate 66 60 62 Respiratory Rate 18 Blood Pressure 124/59 H 112/70 139/41 H Blood Pressure Mean 80 84 73 Pulse Ox 97 100 91 Oxygen Delivery Method Room Air Positive well nourished and well developed General Appearance ED: well developed and NAD; Negative for pallor HEENT Reports moist mucous membranes HEENT Narrative: Head is atraumatic and normocephalic. Ears normal. Nares patent. Posterior pharynx is normal. Eyes PERRL and EOMs intact bilaterally General Eye ED: Negative for pale conjunctiva or scleral icterus Neck no lymphadenopathy, supple and no JVD Chest Wall inspection of chest normal and palpation of chest normal Resp normal respiratory effort and clear to auscultation bilaterally Cardio regular rate, regular rhythm, S1 normal heart sound, S2 normal heart sound and no murmurs GI normal to inspection, nondistended, normoactive bowel sounds, non-tender, non- distended and no masses; Negative for hepatosplenomegaly Back/Spine no CVA tenderness Extremity normal to inspection Neuro No oriented x3 and CN's II-XII intact bilaterally Neuro Narrative: Awake but not alert. Motor Exam: strength 5/5 throughout Psych mental status grossly normal Skin no rashes or lesions noted, no wounds and No skin turgor normal General Skin Exam: Negative for jaundice or pallor MDM MDM MDM Narrative Medical decision making narrative: Order was placed to reinsert Lizarraga because of urinary retention and infections with self-catheterization. Will obtain UA to rule out infection as well as CBC and basic metabolic panel to assess renal function. History & Record Review Additional record(s) reviewed:: Prior inpatient record (Patient was admitted greater than 30 days ago for abnormal urinalysis and lactic acidosis.), Prior outpatient record (Se[facility] for sacral decubitus stage II.) and Prior labs Lab Data Attestation: I reviewed the patient's lab results. Lab results narrative: White count is normal. There is a slight shift with increased segs. Basic metabolic panel is not elevated BUN to creatinine ratio of 28:1. Renal function is normal. Will not need to alter dose of cephalexin. Urine is suggestive of infection with positive protein, occult blood, nitrites and leukoesterase. T here is evidence of pyuria with bacteria. Culture was sent and she received her first dose of cephalexin in the emergency department. Labs: Laboratory Results - last 24 hr 07/31/25 21:07 WBC 10.0 RBC 4.20 Hgb 12.8 Hct 37.1 MCV 88.3 MCH 30.5 MCHC 34.5 RDW Std Deviation 44.5 H RDW Coeff of Leslie 13.7 Plt Count 220 MPV 9.7 Immature Gran % (Auto) 0.600 Neut % (Auto) 72.4 H Lymph % (Auto) 18.7 L Hudspeth % (Auto) 6.4 Eos % (Auto) 1.3 Baso % (Auto) 0.6 Absolute Neuts (auto) 7.3 Absolute Lymphs (auto) 1.88 Nucleated RBC % 0 Sodium 140 Potassium 4.1 Chloride 103 Carbon Dioxide 27.4 Anion Gap 9 BUN 21 H Creatinine 0.76 Estim Creat Clear Calc 39.50 L Est GFR (MDRD) Non-Af 77 BUN/Creatinine Ratio 28.0 H Glucose 96 Calcium 9.3 Urine Color Yellow Urine Clarity Clear Urine pH 6.0 Ur Specific Cornish 1.020 Urine Protein 15 H Urine Glucose (UA) Normal Urine Ketones Negative Urine Occult Blood 25 H Urine Nitrite Positive H Urine Bilirubin Negative Urine Urobilinogen Normal Ur Leukocyte Esterase 25 H Urine RBC 0-5 SEEN Urine WBC 5-10 SEEN Ur Squamous Epith Cells 0-5 SEEN Urine Bacteria 1+ Urine Mucus 0 SEEN Treatment and Re-Evaluation :: Nursing staff placed Lizarraga. Discharge Plan Triage Chief Complaint: Complaint Other Complaint: Diarrhea ED Provider: Reggie Chan Dx/Rx/DC Orders Clinical Impression: Urinary tract infection, Hypothyroidism, Debility, Dementia, Acute on chronic urinary retention Instructions: ED Urinary Retention, Female Prescriptions: New cephalexin 500 mg capsule 500 mg PO Q6 Qty: 28 0RF No Action buspirone 5 mg tablet 5 mg PO BID cholecalciferol (vitamin D3) 125 mcg (5,000 unit) capsule 125 mcg PO DAILY acetaminophen 500 mg Tablet 1,000 mg PO Q8 Qty: 0 0RF clonazepam 0.5 mg Tablet 0.5 mg PO Q8H PRN (Reason: anxiety) Qty: 6 0RF menthol-zinc oxide [Calmoseptine] 0.44-20.6 % Ointment 1 applic topical BID Qty: 0 0RF Protocol: *Topical Application Instructions APPLICATION INSTRUCTIONS: apply to buttocks sennosides-docusate sodium [Stimulant Laxative Plus] 8.6-50 mg Tablet 2 tab PO BID Qty: 0 0RF triamcinolone acetonide 0.1 % Cream 1 applic topical BID Qty: 15 0RF Protocol: *Topical Application Instructions APPLICATION INSTRUCTIONS: Call twice daily to rectal area Rx Instructions: Apply twice a day to rectal area as needed hemorrhoidal pain citalopram 20 mg tablet 20 mg PO DAILY furosemide 20 mg tablet PO trazodone 50 mg tablet 50 mg PO QHS donepezil 10 mg tablet 10 mg PO DAILY levothyroxine 50 mcg tablet 50 mcg PO DAILY escitalopram oxalate 20 mg tablet 20 mg PO DAILY Patient Comments: PT TAKES AT BEDTIME. ascorbic acid (vitamin C) [C-500] 500 mg tablet 500 mg PO DAILY Primary Care Provider: Anaid Luna Referrals: Anaid Luna MD [Primary Care Provider] - 3-5 Days if not improving Print Language: Somali Disposition Disposition: Home, Self Care
[2025-07-31 22:48] VITALS: BP 139/41; PULSE 62; RESP 20; TEMP 36.6; O2SAT 91
== END 2025-07-31 22:53 | disposition home or self-care (01) ==
PROVIDERS: Emergency Provider Emergency Medicine; PCP Internal Medicine; Visit Provider Emergency Medicine
DX: N39.0 Urinary tract infection, site not specified (principal); F03.90 Unspecified dementia, unspecified severity, without behavioral disturbance, psychotic disturbance, mood disturbance, and anxiety; R53.81 Other malaise; R33.9 Retention of urine, unspecified; E03.9 Hypothyroidism, unspecified
CPT/HCPCS: 51702; 80048; 81001; 85025; 87077; 87086; 87088; 87186; 99285; A4216

== ENCOUNTER 2025-08-05 09:30 | Outpatient (RCR) | payer MEDICARE, SELFPAY ==
[2025-07-22 09:25] VITALS: BP 129/60; PULSE 67; RESP 18; TEMP 36.3; BMI 23.2
--- NOTE | 2025-07-22 12:39 | HP.PCM_ITS ---
History of Present Illness Date of Service: 07/22/25 Chief Complaint: Follow-up on her bilateral buttocks open wounds from pressure. [facility] Medical History (Updated 07/03/25 @ 00:01 by Curtis Kramer) Abnormal finding on urinalysis Generalized weakness Fall Closed intertrochanteric fracture of left hip Fall Hypothyroidism Anxiety Dementia Self-catheterizes urinary bladder Hypertension Back pain Home Medications ?Medication ?Instructions ?Recorded ?Last Taken ?Type ascorbic acid (vitamin C) 500 mg 500 mg PO DAILY suppl ement 03/01/25 06/19/25 History tablet (C-500) donepezil 10 mg tablet 10 mg PO DAILY dementia 02/1706/19/25 History escitalopram oxalate 20 mg tablet 20 mg PO DAILY anxie ty 03/01/25 06/19/25 History levothyroxine 50 mcg tablet 50 mcg PO DAILY thyroid 06/19/25 History trazodone 50 mg tablet 50 mg PO QHS anxiety 5 06/19/25 History buspirone 5 mg tablet 5 mg PO BID 06/20/25 5 History cholecalciferol (vitamin D3) 125 125 mcg PO DAILY 01/1306/19/25 History mcg (5,000 unit) capsule acetaminophen 500 mg tablet 1,000 mg (2 x 500 mg) PO Q 8 #0 tabs 06/25/25 Unknown Rx clonazepam 0.5 mg tablet 0.5 mg PO Q8H PRN anxiety #6 tabs 06/25/25 Unknown Rx menthol 0.44 %-zinc oxide 20.6 % 1 applic topical BID #0 grams 06/25/25 Unknown Rx topical ointment (Calmoseptine) sennosides 8.6 mg-docusate sodium 2 tab PO BID #0 tabs 06/25/25 Unknown Rx 50 mg tablet (Stimulant Laxative Plus) triamcinolone acetonide 0.1 % 1 applic topical BID #15 grams 06/25/25 Unknown Rx topical cream citalopram 20 mg tablet 20 mg PO DAILY 07/22/25 Unkn own History furosemide 20 mg tablet mg PO 07/22/25 Unknown Histo ry Allergy/AdvReac Type Severity Reaction Status Date / Time No Known Allergies Allergy Verified 07/22/25 09:19 Family History Other Hypertension Surgical History H/O: hysterectomy Status post right knee replacement Social History household members: none housing: apartment current occupational status: retired other: Daughter lives a few doors down helps her on a regular basis Smoking Status: Never smoker alcohol intake: never substance use type: does not use Vital Signs Vital Signs Vital Signs: 07/22/25 09:25 Temperature 97.4 F L Temperature Source Temporal Pulse Rate 67 Respiratory Rate 18 Blood Pressure 129/60 H Blood Pressure Mean 83 Blood Pressure Source Monitor Blood Pressure Position Semi-Fowlers Blood Pressure Location Left Arm Weight Weight: 123 lb Body Mass Index (BMI) 23.2 Debridement Note Debridement Note Post-Debridement Measurements and Additional Note: Post-Debridement Measurements/Treatment WC - Nurse 1 - General Ulcer Assessment Start: 07/22/25 09:18 Freq: Status: Active Protocol: DEYANIRA Activity Type Activity Date Activity User E-sign Co-sign Detail Recorded Client Recorded Date Recorded By Document 07/22/25 09:25 RB [id number] 07/22/25 09:32 RB 07/22/25 09:25 WC - Today's Visit Information Type of service Initial Visit Arrival Mode Ambulatory Transfer Assistance None Patient Identification Verified (Name & Yes ) Patient Requires Transmission-Based No Precautions Height and Weight Height 5 ft 1 in Weight 123 lb Weight in Pounds 123.0 lbs Body Mass Index (BMI) 23.2 BMI Classification Normal Vital Signs Temperature (97.8 F-99.1 F) 97.4 F L Temperature Source Temporal Pulse Rate (60-100) 67 Pulse Location Monitor Respiratory Rate (12-18) 18 Respiratory rate source Observation Blood Pressure (90/60-120/80) 129/60 H Blood Pressure Mean 83 Source Monitor Position Semi-Fowlers Blood Pressure Location Left Arm History Since Last Visit- (Skip if this is Patient's initial visit) Have you changed medications since your No last visit? Any new allergies or adverse reactions No Had a fall/change in ADL's that may No increase risk of falls Signs or symptoms of abuse and/or No neglect since last visit Have you been in the hospital since your No last visit? Has dressing in place as prescribed Yes Has compression in place as prescribed N/A Has offloadiing in place as prescribed N/A Experienced any changes in pain level or No management Left Footwear Regular Shoe Right Footwear Regular Shoe Pain Scale: 0-10 Numeric Is Patient Pain Free? No buttock -Description Aching -Intensity 5 -Duration (hours) Acute -Pain Behavior Withdrawal from Touch -Pain Aggravating Factors ADL's -Alleviating Factors/Interventions None Communication Assessment Preferred language Croatian Costume Designer Required No Able to Read Yes Able to Write Yes Communication Tools None Caregiver Communication Skills No Impairment Impairment Right Hearing Abillity Normal Left Hearing Abillity Normal Visual Assistive Devices Glasses Teaching Assessment Preferences Verbal,Written, Demonstration Barriers to Learning Knowledge Deficit Readiness To Learn Poor Willingness to Engage in Self Management Low Activies Readiness to Engage in Self Management Low Activities Anxiety Level Calm Cooperation Cooperative Perception Coherent Interest in Health Problem Asks Questions Education Importance Acknowledges Need Does Patient Smoke tobacco or other No substances Smoking Status Never smoker Is Patient Diabetic Yes Functional Assessment Recent Decline in Ability to Perform Ambulation, Bathing,Eating/ Feeding Assistive Device With Patient No Culture/Islam/Oral And Maxillofacial Pathologist Cultural/Islam Needs that may affect No Treatment Plan Would you allow our hospital stitcher set up operator automatic to No meet you for the purpose of spiritual/ emotional support? Oral And Maxillofacial Pathologist to contact place of protestant No Teaching: Wound Center *Welcome to the Wound Center -Person Taught Patient,Family -Teaching Method Discussion, Demonstration -Response to teaching Verbalize Understanding WC - Nurse 1 - General Ulcer Measurement Start: 07/22/25 09:18 Freq: Status: Active Protocol: Activity Type Activity Date Activity User E-sign Co-sign Detail Recorded Client Recorded Date Recorded By Document 07/22/25 09:25 RB [id number] 07/22/25 09:32 RB 07/22/25 09:25 Wound Center Nurse 1 1. RIGHT/LEFT BUTTOCK CLUSTER -Combined with other wound No -Current Size (cm) - Length 5.2 -Current Size (cm) - Width 5.4 -Current Size (cm) - Depth 0.1 -Total Square Cm 28.08 -Photo Taken Yes -Tunneling No -Undermining/Tunneling No -Circular Undermining No -Exudate Amt Medium -Exudate Type Serosanguineous -Wound Margin Distinct, Outline Attached -Granulation Amt Medium (34-66%) -Granulation Quality [place] -Slough/Fibrin Yes -Necrosis Amt Medium (34-66%) -Necrotic Tissue Type Adherent Slough -Structure Exposed N/A -Texture ([place]-wound Skin Appearance) Assessed, Excoriation -Moisture (Hillary-wound Skin Appearance) Assessed -Color (Hillary-wound Skin Appearance) Assessed -Temperature (Hillary-wound Skin No Abnormality Appearance) (Pt Warm) -Tenderness on Palpation (Hillary-wound No Skin Appearance) -Ulcer Cleansing Wound Cleanser -Foul Odor after Cleansing No -Anesthetic Used 5% Lidocaine Gel WC - Nurse 2 - General Ulcer CM Notes Start: 07/22/25 09:18 Freq: Status: Active Protocol: Activity Type Activity Date Activity User E-sign Co-sign Detail Recorded Client Recorded Date Recorded By Document 07/22/25 10:04 [facility] [id number] 07/22/25 10:14 [facility] 07/22/25 10:04 Wound Center Nurse 2 -Time 10:06 -Correct Patient Yes -Correct Side, Site, Position Yes -Correct Procedure Yes -Procedure Performed Yes -Type of Procedure Debridement -Clinical Debridement Subcutaneous -Tissue Removed Subcutaneous -Post Debridement (cm) - Length 6 -Post Debridement (cm) - Width 6 -Post Debridement (cm) - Depth 0.1 -Total Square (Post) (cm) 36 -Area of Debridement (cm) - Length 6 -Area of Debridement (cm) - Width 6 -Total Square (Area) (cm) 36 -Tunneling No -Undermining/Tunneling No -Circular Undermining No -Wound/Ulcer Outcome Not Healed -Ulcer Cleansing Rinsed/ Irrigated with Saline -Foul Odor after Cleansing No -Bioengineered Tissue No -Bleeding Controlled with Pressure -Treatment Response Procedure Tolerated Well -Debridement - Subq, 1st 20sq cm Yes Pain Scale: 0-10 Numeric Is Patient Pain Free? Yes - Nurse 3 - General Ulcer D/C NN Start: 07/22/25 09:18 Freq: Status: Active Protocol: Activity Type Activity Date Activity User E-sign Co-sign Detail Recorded Client Recorded Date Recorded By Document 07/22/25 10:44 RB [id number] 07/22/25 10:45 RB 07/22/25 10:44 Wound Care Center Nurse 3 1. RIGHT/LEFT BUTTOCK CLUSTER -Ulcer Cleansing Rinsed/ Irrigated with Saline -Primary Dressing Applied Aquacel Extra, Silicone Border Foam 6x6 -Aquacel Extra 1 -Silicone Border Foam 6x6 1 Treatment Response Procedure Tolerated Well Pain Scale: 0-10 Numeric Is Patient Pain Free? Yes WC - Visit Discharge Discharge Condition Stable Ambulatory Status Wheelchair Transportation Private Auto Accompanied by SON IN LAW Medication Reconcilliation completed & No provided to patient/care provider Clinical Summary of Care Provided Yes Notes: 2 PERSON ASSIST TO WHEELCHAIR
--- NOTE | 2025-07-22 12:39 | PCM.WC.HP ---
History of Present Illness Date of Service: 07/22/25 Chief Complaint: Follow-up on her bilateral buttocks open wounds from pressure. History of Wound: 84-year-old white female that apparently had fallen back in February and broke her hip had surgery went to a halfway for rehab until about a week and a half ago and now lives with her daughter and son-in-law. He is the head of the [facility] and has brought her in today. He states she has a little bit of dementia but she does walk with her walker when prodded and eats okay and has been eating drinking boost at least once a day. 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 She also has incontinence of stool which is apparent on exam. She has a butterfly shaped open wound on her buttocks right and left into the coccyx. Son-in-law is not sure if this started in the hospital or at the halfway but she was getting zinc oxide on her buttocks. They do not have a special mattress for her on her bed she does sit on a doughnut on her chair. [facility] Medical History Abnormal finding on urinalysis Generalized weakness Fall Closed intertrochanteric fracture of left hip Fall Hypothyroidism Anxiety Dementia Self-catheterizes urinary bladder Hypertension Back pain Home Medications ?Medication ?Instructions ?Recorded ?Last Taken ?Type ascorbic acid (vitamin C) 500 mg 500 mg PO DAILY supplement 03/01/25 06/19/25 History tablet (C-500) donepezil 10 mg tablet 10 mg PO DAILY dementia 03/01/25 06/19/25 History escitalopram oxalate 20 mg tablet 20 mg PO DAILY anxiety 03/01/25 06/19/25 History levothyroxine 50 mcg tablet 50 mcg PO DAILY thyroid 03/01/25 06/19/25 History trazodone 50 mg tablet 50 mg PO QHS anxiety 03/01/25 06/19/25 History buspirone 5 mg tablet 5 mg PO BID 06/20/25 06/19/25 History cholecalciferol (vitamin D3) 125 125 mcg PO DAILY 06/20/25 06/19/25 History mcg (5,000 unit) capsule acetaminophen 500 mg tablet 1,000 mg (2 x 500 mg) PO Q8 #0 tabs 06/25/25 Unknown Rx clonazepam 0.5 mg tablet 0.5 mg PO Q8H PRN anxiety #6 tabs 06/25/25 Unknown Rx menthol 0.44 %-zinc oxide 20.6 % 1 applic topical BID #0 grams 06/25/25 Unknown Rx topical ointment (Calmoseptine) sennosides 8.6 mg-docusate sodium 2 tab PO BID #0 tabs 06/25/25 Unknown Rx 50 mg tablet (Stimulant Laxative Plus) triamcinolone acetonide 0.1 % 1 applic topical BID #15 grams 06/25/25 Unknown Rx topical cream citalopram 20 mg tablet 20 mg PO DAILY 07/22/25 Unknown History furosemide 20 mg tablet mg PO 07/22/25 Unknown History Allergy/AdvReac Type Severity Reaction Status Date / Time No Known Allergies Allergy Verified 07/22/25 09:19 Family History Other Hypertension Surgical History H/O: hysterectomy Status post right knee replacement Social History household members: none housing: apartment current occupational status: retired other: Daughter lives a few doors down helps her on a regular basis Smoking Status: Never smoker alcohol intake: never substance use type: does not use ROS Constitutional Constitutional: Reports systems reviewed and no addt'l complaints, except as documented Eyes Eyes: Reports systems reviewed and no addt'l complaints, except as documented ENT HEENT: Reports systems reviewed and no addt'l complaints, except as documented Cardiovascular Cardiovascular: Reports systems reviewed and no addt'l complaints, except as documented Respiratory/Chest Respiratory/Chest: Reports systems reviewed and no addt'l complaints, except as documented Gastrointestinal Gastrointestinal: Reports other Details: She is incontinent of her stool soft and mushy light brown ; Denies abdominal pain, constipation, diarrhea, dyspepsia, hematemesis, hematochezia, melena, nausea or vomiting Genitourinary Genitourinary: Reports other Details: Incontinent of urine and has a Lizarraga 2-CdA with clear yellow urine Musculoskeletal Musculoskeletal: Reports systems reviewed and no addt'l complaints, except as documented Integumentary Integumentary: Reports wounds and other Details: Open butterfly shaped wound on her bilateral buttocks into her coccyx. Neurologic Neurologic: Reports systems reviewed and no addt'l complaints, except as documented Psychiatric Psychiatric: Reports systems reviewed and no addt'l complaints, except as documented Endocrine Endocrinology: Reports systems reviewed and no addt'l complaints, except as documented Hematologic/Lymphatic Hematologic/Lymphatic: Reports systems reviewed and no addt'l complaints, except as documented Allergic/Immunologic Allergic/Immunologic: Reports systems reviewed and no addt'l complaints, except as documented Vital Signs Vital Signs Vital Signs: 07/22/25 09:25 Temperature 97.4 F L Temperature Source Temporal Pulse Rate 67 Respiratory Rate 18 Blood Pressure 129/60 H Blood Pressure Mean 83 Blood Pressure Source Monitor Blood Pressure Position Semi-Fowlers Blood Pressure Location Left Arm Weight Weight: 123 lb Body Mass Index (BMI) 23.2 Physical Exam Const General Appearance: cooperative HEENT normocephalic Face and Sinus: normal facial exam External Ear: external ears normal Eyes PERRL General Eye: normal appearance of both eyes Neck full ROM General: normal visual inspection Resp normal respiratory effort Cardio regular rate and regular rhythm Palpation: normal PMI Rate: regular rate Rhythm: regular rhythm external exam normal Back/Spine Cervical Spine: cervical ROM normal Thoracic Spine / Upper Back: normal to inspection Lumbar Spine / Lower Back: normal to inspection Extremity normal to inspection Skin Wounds: wounds noted Wound Narrative: Butterfly shaped open wound superficial on bilateral right and left buttocks and sacral area Psych Appearance: grossly normal Speech: normal speech Debridement Note Debridement Note Wound debrided: Bilateral buttocks and sacrum area Wound Grade/Stage: Stage II Type of Debridement: Excisional debridement Anesthesia Used: 5% Lidocaine Gel Depth: in the subcutaneous layer Percentage of wound debrided: 100 Instrument Used: 5mm curette Tissue Removed: Fibrin Severity: Limited To Skin Breakdown Amount of bleeding with debridement: Mild Bleeding Controlled with: Compression and gauze Patient tolerated procedure: Patient tolerated procedure well Post-Debridement Measurements and Additional Note: Post-Debridement Measurements/Treatment HARRY - Nurse 1 - General Ulcer Assessment Start: 07/22/25 09:18 Freq: Status: Active Protocol: DEYANIRA Activity Type Activity Date Activity User E-sign Co-sign Detail Recorded Client Recorded Date Recorded By Document 07/22/25 09:25 RB [id number] 07/22/25 09:32 RB 07/22/25 09:25 WC - Today's Visit Information Type of service Initial Visit Arrival Mode Ambulatory Transfer Assistance None Patient Identification Verified (Name & Yes ) Patient Requires Transmission-Based No Precautions Height and Weight Height 5 ft 1 in Weight 123 lb Weight in Pounds 123.0 lbs Body Mass Index (BMI) 23.2 BMI Classification Normal Vital Signs Temperature (97.8 F-99.1 F) 97.4 F L Temperature Source Temporal Pulse Rate (60-100) 67 Pulse Location Monitor Respiratory Rate (12-18) 18 Respiratory rate source Observation Blood Pressure (90/60-120/80) 129/60 H Blood Pressure Mean 83 Source Monitor Position Semi-Fowlers Blood Pressure Location Left Arm History Since Last Visit- (Skip if this is Patient's initial visit) Have you changed medications since your No last visit? Any new allergies or adverse reactions No Had a fall/change in ADL's that may No increase risk of falls Signs or symptoms of abuse and/or No neglect since last visit Have you been in the hospital since your No last visit? Has dressing in place as prescribed Yes Has compression in place as prescribed N/A Has offloadiing in place as prescribed N/A Experienced any changes in pain level or No management Left Footwear Regular Shoe Right Footwear Regular Shoe Pain Scale: 0-10 Numeric Is Patient Pain Free? No buttock -Description Aching -Intensity 5 -Duration (hours) Acute -Pain Behavior Withdrawal from Touch -Pain Aggravating Factors ADL's -Alleviating Factors/Interventions None Communication Assessment Preferred language Bhutanese Member Of Congress Required No Able to Read Yes Able to Write Yes Communication Tools None Caregiver Communication Skills No Impairment Impairment Right Hearing Abillity Normal Left Hearing Abillity Normal Visual Assistive Devices Glasses Teaching Assessment Preferences Verbal,Written, Demonstration Barriers to Learning Knowledge Deficit Readiness To Learn Poor Willingness to Engage in Self Management Low Activies Readiness to Engage in Self Management Low Activities Anxiety Level Calm Cooperation Cooperative Perception Coherent Interest in Health Problem Asks Questions Education Importance Acknowledges Need Does Patient Smoke tobacco or other No substances Smoking Status Never smoker Is Patient Diabetic Yes Functional Assessment Recent Decline in Ability to Perform Ambulation, Bathing,Eating/ Feeding Assistive Device With Patient No Culture/Restorationism/Manager Hiv Cultural/Restorationism Needs that may affect No Treatment Plan Would you allow our hospital airplane navigator to No meet you for the purpose of spiritual/ emotional support? Manager Hiv to contact place of moravian No Teaching: Wound Center *Welcome to the Wound Center -Person Taught Patient,Family -Teaching Method Discussion, Demonstration -Response to teaching Verbalize Understanding - Nurse 1 - General Ulcer Measurement Start: 07/22/25 09:18 Freq: Status: Active Protocol: Activity Type Activity Date Activity User E-sign Co-sign Detail Recorded Client Recorded Date Recorded By Document 07/22/25 09:25 RB [id number] 07/22/25 09:32 RB 07/22/25 09:25 Wound Center Nurse 1 1. RIGHT/LEFT BUTTOCK CLUSTER -Combined with other wound No -Current Size (cm) - Length 5.2 -Current Size (cm) - Width 5.4 -Current Size (cm) - Depth 0.1 -Total Square Cm 28.08 -Photo Taken Yes -Tunneling No -Undermining/Tunneling No -Circular Undermining No -Exudate Amt Medium -Exudate Type Serosanguineous -Wound Margin Distinct, Outline Attached -Granulation Amt Medium (34-66%) -Granulation Quality [place] -Slough/Fibrin Yes -Necrosis Amt Medium (34-66%) -Necrotic Tissue Type Adherent Slough -Structure Exposed N/A -Texture (Hillary-wound Skin Appearance) Assessed, Excoriation -Moisture (Hillary-wound Skin Appearance) Assessed -Color (Hillary-wound Skin Appearance) Assessed -Temperature (Hillary-wound Skin No Abnormality Appearance) (Pt Warm) -Tenderness on Palpation (Hillary-wound No Skin Appearance) -Ulcer Cleansing Wound Cleanser -Foul Odor after Cleansing No -Anesthetic Used 5% Lidocaine Gel - Nurse 2 - General Ulcer CM Notes Start: 07/22/25 09:18 Freq: Status: Active Protocol: Activity Type Activity Date Activity User E-sign Co-sign Detail Recorded Client Recorded Date Recorded By Document 07/22/25 10:04 [facility] [id number] 07/22/25 10:14 [facility] 07/22/25 10:04 Wound Center Nurse 2 -Time 10:06 -Correct Patient Yes -Correct Side, Site, Position Yes -Correct Procedure Yes -Procedure Performed Yes -Type of Procedure Debridement -Clinical Debridement Subcutaneous -Tissue Removed Subcutaneous -Post Debridement (cm) - Length 6 -Post Debridement (cm) - Width 6 -Post Debridement (cm) - Depth 0.1 -Total Square (Post) (cm) 36 -Area of Debridement (cm) - Length 6 -Area of Debridement (cm) - Width 6 -Total Square (Area) (cm) 36 -Tunneling No -Undermining/Tunneling No -Circular Undermining No -Wound/Ulcer Outcome Not Healed -Ulcer Cleansing Rinsed/ Irrigated with Saline -Foul Odor after Cleansing No -Bioengineered Tissue No -Bleeding Controlled with Pressure -Treatment Response Procedure Tolerated Well -Debridement - Subq, 1st 20sq cm Yes Pain Scale: 0-10 Numeric Is Patient Pain Free? Yes - Nurse 3 - General Ulcer D/C NN Start: 07/22/25 09:18 Freq: Status: Active Protocol: Activity Type Activity Date Activity User E-sign Co-sign Detail Recorded Client Recorded Date Recorded By Document 07/22/25 10:44 CHERELLE [id number] 07/22/25 10:45 CHERELLE 07/22/25 10:44 Wound Care Center Nurse 3 1. RIGHT/LEFT BUTTOCK CLUSTER -Ulcer Cleansing Rinsed/ Irrigated with Saline -Primary Dressing Applied Aquacel Extra, Silicone Border Foam 6x6 -Aquacel Extra 1 -Silicone Border Foam 6x6 1 Treatment Response Procedure Tolerated Well Pain Scale: 0-10 Numeric Is Patient Pain Free? Yes - Visit Discharge Discharge Condition Stable Ambulatory Status Wheelchair Transportation Private Auto Accompanied by SON IN LAW Medication Reconcilliation completed & No provided to patient/care provider Clinical Summary of Care Provided Yes Notes: 2 PERSON ASSIST TO WHEELCHAIR Assessment/Plan Assessment/Plan (1) Urinary retention: CODE(S): R33.9 - Retention of urine, unspecified (2) Fecal incontinence: CODE(S): R15.9 - Full incontinence of feces QUALIFIERS: Fecal incontinence type: unspecified Qualified Code(s): R15.9 - Full incontinence of feces (3) Decubitus ulcer of buttock, stage 2: CODE(S): L89.302 - Pressure ulcer of unspecified buttock, stage 2 QUALIFIERS: Laterality: right Qualified Code(s): L89.312 - Pressure ulcer of right buttock, stage 2 PLAN: Wash buttocks and sacral area with antibacterial soap and water apply Aquacel extra to wound base moistened and then cover with a ABD pad daily and as needed if Becomes soiled Follow-up in 1 week Continue to rotate in bed every hour. Offload is much as possible with a Roho pad under her buttocks when seated in chairs Encourage patient to move frequently and walk Continue to elicit increase food intake with protein and 60 g of protein a day. Samples of Shashi were given to patient to trial. (4) Decubitus ulcer of sacral area: CODE(S): L89.159 - Pressure ulcer of sacral region, unspecified stage QUALIFIERS: Pressure injury stage: stage 2 Qualified Code(s): L89.152 - Pressure ulcer of sacral region, stage 2 (5) Decubitus ulcer of left buttock, stage 2: CODE(S): L89.322 - Pressure ulcer of left buttock, stage 2
--- NOTE | 2025-07-23 09:26 | WC ---
PHOTO- COCCYX INITIAL 07/22/25
[2025-07-29 09:43] VITALS: BP 118/60; PULSE 56; RESP 18; TEMP 36.6; BMI 23.2
--- NOTE | 2025-07-29 11:36 | PCM.WC.PN ---
History of Present Illness Date of Service: 07/29/25 Chief Complaint: Follow-up on her bilateral buttocks open wounds from pressure. History of Wound: 84-year-old white female that apparently had fallen back in February and broke her hip had surgery went to a [facility] for [facility]hab until about a week and a half ago and now lives with her daughter and son-in-law. He is the head of the [facility] and has brought her in today. He states she has a little bit of dementia but she does walk with her walker when prodded and eats okay and has been eating drinking boost at least once a day. 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 She also has incontinence of stool which is apparent on exam. She has a butterfly shaped open wound on her buttocks right and left into the coccyx. Son-in-law is not sure if this started in the hospital or at the [facility] but she was getting zinc oxide on her buttocks. They do not have a special mattress for her on her bed she does sit on a doughnut on her chair. Progress of Wound: Today her son-in-law was with her who is actually doing the dressing changes he has some medical background he runs [facility]. And he has been helping her offload by only letting her lay on her sides. She is the one that has the right and left buttock actually its her sacral area it is a butterfly cluster we are calling it well the left side of the cluster is completely healed. I debrided off any dried skin and nipped away any loose skin. So now are just dealing with the right side of her sacral area which is much smaller than it was last week even. She continues to use Aquacel extra and moistened with a foam dressing. And we did order some of the butterfly shaped dressings for her for padding it is mostly shearing from the sheets that is causing this. Subjective Subjective Son was very pleased with outcomes and so is patient. She also has a Lizarraga to CD that had having some issues with the nurse and so they are dealing with her urine issues. The son-in-law has been doing basically the coccyx dressings and he has been doing a really good job in keeping her superclean down there. Objective Data Objective Data No sign of an infection left side healed right side much smaller and more superficial healing well less pain everything is working well. Also had been given her Shashi and that has been helping a lot with healing. Vital Signs: Vital Signs Temp Pulse Resp BP O2 Del Method 98 F 56 L 18 118/60 Room Air 07/29/25 09:43 07/29/25 09:43 07/29/25 09:43 07/29/25 09:43 07/29/25 09:43 Oxygen Delivery Method Room Air Weight: 123 lb Body Mass Index (BMI) 23.2 Physical Exam Const General Appearance: cooperative HEENT normocephalic Face and Sinus: normal facial exam External Ear: external ears normal Eyes PERRL General Eye: normal appearance of both eyes Neck full ROM General: normal visual inspection Resp normal respiratory effort Cardio regular rate and regular rhythm Palpation: normal PMI Rate: regular rate Rhythm: regular rhythm external exam normal Back/Spine Cervical Spine: cervical ROM normal Thoracic Spine / Upper Back: normal to inspection Lumbar Spine / Lower Back: normal to inspection Extremity normal to inspection Skin Wounds: wounds noted Wound Narrative: Butterfly shaped open wound superficial on bilateral right and left buttocks and sacral area Psych Appearance: grossly normal Speech: normal speech Debridement Note Debridement Note Wound debrided: Bilateral buttocks and sacrum area Wound Grade/Stage: Stage II Type of Debridement: Excisional debridement Anesthesia Used: 5% Lidocaine Gel Depth: in the subcutaneous layer Percentage of wound debrided: 100 Instrument Used: 5mm curette Tissue Removed: Fibrin Severity: Limited To Skin Breakdown Amount of bleeding with debridement: Mild Bleeding Controlled with: Compression and gauze Patient tolerated procedure: Patient tolerated procedure well Post-Debridement Measurements and Additional Note: Post-Debridement Measurements/Treatment - Nurse 1 - General Ulcer Assessment Start: 07/22/25 09:18 Freq: Status: Active Protocol: HARRY.NIKKO Activity Type Activity Date Activity User E-sign Co-sign Detail Recorded Client Recorded Date Recorded By Document 07/22/25 09:25 RB [id number] 07/22/25 09:32 RB Document 07/29/25 09:43 MT [id number] 07/29/25 09:53 MT 07/22/25 07/29/25 09:25 09:43 - Today's Visit Information Type of service Initial Visit Follow-up Visit (Physician/BIZTALK ADMINISTRATOR ) Arrival Mode Ambulatory Ambulatory Transfer Assistance None Accompanied by son in law Patient Identification Verified (Name & Yes Yes ) Patient Requires Transmission-Based No Precautions Safety Precautions Fall Prevention Height and Weight Height 5 ft 1 in Weight 123 lb Weight in Pounds 123.0 lbs Body Mass Index (BMI) 23.2 23.2 BMI Classification Normal Normal Vital Signs Temperature (97.8 F-99.1 F) 97.4 F L 98 F Temperature Source Temporal Temporal Pulse Rate (60-100) 67 56 L Pulse Location Monitor Monitor Respiratory Rate (12-18) 18 18 Respiratory rate source Observation Observation Oxygen Delivery Method Room Air Blood Pressure (90/60-120/80) 129/60 H 118/60 Blood Pressure Mean (mm Hg) 83 79 Source Monitor Monitor Position Semi-Fowlers Sitting Blood Pressure Location Left Arm Right Arm History Since Last Visit- (Skip if this is Patient's initial visit) Have you changed medications since your No last visit? Any new allergies or adverse reactions No Had a fall/change in ADL's that may No increase risk of falls Signs or symptoms of abuse and/or No neglect since last visit Have you been in the hospital since your No last visit? Has dressing in place as prescribed Yes Yes Has compression in place as prescribed N/A Yes Has offloadiing in place as prescribed N/A Yes Experienced any changes in pain level or No Yes management Left Footwear Regular Shoe Regular Shoe Right Footwear Regular Shoe Regular Shoe Pain Scale: 0-10 Numeric Is Patient Pain Free? No Yes buttock -Description Aching -Intensity 5 -Duration (hours) Acute -Pain Behavior Withdrawal from Touch -Pain Aggravating Factors ADL's -Alleviating Factors/Interventions None Communication Assessment Preferred language Beninese Ceramic Worker Required No Able to Read Yes Able to Write Yes Communication Tools None Caregiver Communication Skills No Impairment Impairment Right Hearing Abillity Normal Left Hearing Abillity Normal Visual Assistive Devices Glasses Teaching Assessment Preferences Verbal,Written, Demonstration Barriers to Learning Knowledge Deficit Readiness To Learn Poor Willingness to Engage in Self Management Low Activies Readiness to Engage in Self Management Low Activities Anxiety Level Calm Cooperation Cooperative Perception Coherent Interest in Health Problem Asks Questions Education Importance Acknowledges Need Does Patient Smoke tobacco or other No substances Smoking Status Never smoker Is Patient Diabetic Yes Functional Assessment Recent Decline in Ability to Perform Ambulation, Bathing,Eating/ Feeding Assistive Device With Patient No Culture/Cheondoism/Systems Integration Engineer Cultural/Cheondoism Needs that may affect No Treatment Plan Would you allow our hospital marine pipe welder to No meet you for the purpose of spiritual/ emotional support? Systems Integration Engineer to contact place of anabaptist No Teaching: Wound Center *Welcome to the Wound Center -Person Taught Patient,Family -Teaching Method Discussion, Demonstration -Response to teaching Verbalize Understanding HARRY - Nurse 1 - General Ulcer Measurement Start: 07/22/25 09:18 Freq: Status: Active Protocol: Activity Type Activity Date Activity User E-sign Co-sign Detail Recorded Client Recorded Date Recorded By Document 07/22/25 09:25 RB [id number] 07/22/25 09:32 RB Document 07/29/25 09:43 MT [id number] 07/29/25 09:53 MT 07/22/25 07/29/25 09: 09:43 Wound Center Nurse 1 1. RIGHT/LEFT BUTTOCK CLUSTER -Combined with other wound No No -Current Size (cm) - Length 5.2 3.6 -Current Size (cm) - Width 5.4 1.5 -Current Size (cm) - Depth 0.1 0.1 -Total Square Cm 28.08 5.40 -Photo Taken Yes Yes -Tunneling No No -Undermining/Tunneling No No -Circular Undermining No No -Exudate Amt Medium Medium -Exudate Type Serosanguineous Serosanguineous -Wound Margin Distinct, Distinct, Outline Outline Attached Attached -Granulation Amt Medium (34-66%) Medium (34-66%) -Granulation Quality [place] -Slough/Fibrin Yes Yes -Necrosis Amt Medium (34-66%) Medium (34-66%) -Necrotic Tissue Type Adherent Slough Adherent Slough -Structure Exposed N/A N/A -Texture (Hillary-wound Skin Appearance) Assessed, Assessed Excoriation -Moisture (Hillary-wound Skin Appearance) Assessed Assessed -Color (Hillary-wound Skin Appearance) Assessed Assessed -Temperature (Hillary-wound Skin No Abnormality No Abnormality Appearance) (Pt Warm) (Pt Warm) -Tenderness on Palpation (Hillary-wound No No Skin Appearance) -Ulcer Cleansing Wound Cleanser Wound Cleanser -Foul Odor after Cleansing No No -Anesthetic Used 5% Lidocaine 5% Lidocaine Gel Gel HARRY - Nurse 2 - General Ulcer CM Notes Start: 07/22/25 09:18 Freq: Status: Active Protocol: Activity Type Activity Date Activity User E-sign Co-sign Detail Recorded Client Recorded Date Recorded By Document 07/22/25 10:04 BMF [id number] 07/22/25 10:14 BMF Edit Result 07/22/25 10:04 BMF (1) [id number] 07/23/25 13:55 BMF Document 07/29/25 09:56 BMF [id number] 07/29/25 10:04 [facility] (1) 1. RIGHT/LEFT BUTTOCK CLUSTER - Debridement, SubQ, ea addt'l 20sq cm => 1 or part thereof 07/22/25 07/29/25 10:04 09:56 Wound Center Nurse 2 1. RIGHT/LEFT BUTTOCK CLUSTER -Time 10:06 09:57 -Correct Patient Yes Yes -Correct Side, Site, Position Yes Yes -Correct Procedure Yes Yes -Procedure Performed Yes Yes -Type of Procedure Debridement Debridement -Clinical Debridement Subcutaneous Subcutaneous -Tissue Removed Subcutaneous Subcutaneous -Post Debridement (cm) - Length 6 4 -Post Debridement (cm) - Width 6 1 -Post Debridement (cm) - Depth 0.1 0.2 -Total Square (Post) (cm) 36 4 -Area of Debridement (cm) - Length 6 4 -Area of Debridement (cm) - Width 6 1 -Total Square (Area) (cm) 36 4 -Tunneling No No -Undermining/Tunneling No No -Circular Undermining No No -Wound/Ulcer Outcome Not Healed Not Healed -Ulcer Cleansing Rinsed/ Rinsed/ Irrigated with Irrigated with Saline Saline -Foul Odor after Cleansing No No -Bioengineered Tissue No No -Bleeding Controlled with Pressure Pressure -Treatment Response Procedure Procedure Tolerated Well Tolerated Well -Debridement - Subq, 1st 20sq cm Yes Yes -Debridement, SubQ, ea addt'l 20sq cm 1 or part thereof Pain Scale: 0-10 Numeric Is Patient Pain Free? Yes Yes WC - Nurse 3 - General Ulcer D/C NN Start: 07/22/25 09:18 Freq: Status: Active Protocol: Activity Type Activity Date Activity User E-sign Co-sign Detail Recorded Client Recorded Date Recorded By Document 07/22/25 10:44 RB [id number] 07/22/25 10:45 RB Document 07/29/25 10:22 DL [id number] 07/29/25 10:23 DL 07/22/25 07/29/25 10:44 10:22 Wound Care Center Nurse 3 1. RIGHT/LEFT BUTTOCK CLUSTER -Ulcer Cleansing Rinsed/ Soap and Water Irrigated with Saline -Foul Odor after Cleansing No -Primary Dressing Applied Aquacel Extra, Aquacel Extra, Silicone Border Sacral Foam Foam 6x6 Border -Aquacel Extra 1 1 -Sacral Foam Border 1 -Silicone Border Foam 6x6 1 Treatment Response Procedure Procedure Tolerated Well Tolerated Well Pain Scale: 0-10 Numeric Is Patient Pain Free? Yes Yes WC - Visit Discharge Discharge Condition Stable Stable Ambulatory Status Wheelchair Wheelchair Transportation Private Auto Private Auto Accompanied by SON IN LAW Medication Reconcilliation completed & No provided to patient/care provider Clinical Summary of Care Provided Yes Notes: 2 PERSON ASSIST TO WHEELCHAIR Facility Type Home Health Orders Sent Yes Assessment/Plan Assessment/Plan (1) Urinary retention: CODE(S): R33.9 - Retention of urine, unspecified (2) Fecal incontinence: CODE(S): R15.9 - Full incontinence of feces QUALIFIERS: Fecal incontinence type: unspecified Qualified Code(s): R15.9 - Full incontinence of feces (3) Decubitus ulcer of buttock, stage 2: CODE(S): L89.302 - Pressure ulcer of unspecified buttock, stage 2 QUALIFIERS: Laterality: right Qualified Code(s): L89.312 - Pressure ulcer of right buttock, stage 2 PLAN: Wash buttocks and sacral area with antibacterial soap and water apply Aquacel extra to wound base moistened and then cover with a ABD pad daily and as needed if Becomes soiled Follow-up in 1 week Continue to rotate in bed every hour. Offload is much as possible with a Roho pad under her buttocks when seated in chairs Encourage patient to move frequently and walk increase food intake with protein and 60 g of protein a day. Patient did like the Shashi and started taking it daily (4) Decubitus ulcer of sacral area: CODE(S): L89.159 - Pressure ulcer of sacral region, unspecified stage QUALIFIERS: Pressure injury stage: stage 2 Qualified Code(s): L89.152 - Pressure ulcer of sacral region, stage 2 (5) Decubitus ulcer of left buttock, stage 2: CODE(S): L89.322 - Pressure ulcer of left buttock, stage 2
[2025-08-05 09:40] VITALS: BP 113/66; PULSE 61; RESP 14; TEMP 36.7; BMI 23.2
--- NOTE | 2025-08-05 13:11 | PCM.WC.PN ---
History of Present Illness Date of Service: 08/05/25 Chief Complaint: Follow-up on her bilateral buttocks open wounds from pressure. History of Wound: 84-year-old white female that apparently had fallen back in February and broke her hip had surgery went to a [place] [facility] rehab until about a week and a half ago and now lives with her daughter and son-in-law. He is the head of the [facility] and has brought her in today. He states she has a little bit of dementia but she does walk with her walker when prodded and eats okay and has been eating drinking boost at least once a day. 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 She also has incontinence of stool which is apparent on exam. She has a butterfly shaped open wound on her buttocks right and left into the coccyx. Son-in-law is not sure if this started in the hospital or at the [place] [facility] but she was getting zinc oxide on her buttocks. They do not have a special mattress for her on her bed she does sit on a doughnut on her chair. Progress of Wound: Today her son-in-law was with her who is actually doing the dressing changes he has some medical background he runs [facility]. And he has been helping her offload by only letting her lay on her sides. She is the one that has the right and left buttock actually its her sacral area it is a butterfly cluster we are calling it well the left side of the cluster is completely healed. I debrided off any dried skin and nipped away any loose skin. So now are just dealing with the right side of her sacral area which is much smaller than it was last week even. She continues to use Aquacel extra and moistened with a foam dressing. And we did order some of the butterfly shaped dressings for her for padding it is mostly shearing from the sheets that is causing this. Subjective Subjective The son-in-law has been very good about keeping her off her back and she is healing very quickly and that it should be much longer before the cluster will be done its mostly on her right side that is open. Objective Data Objective Data The buttocks is healing well there is no sign of infection the flesh color of the skin is there is no redness no discoloration it is healing very nicely. No depth it is going to be superficial in depth. Vital Signs: Vital Signs Temp Pulse Resp BP O2 Del Method 98.1 F 61 14 113/66 Room Air 08/05/25 09:40 08/05/25 09:40 08/05/25 09:40 08/05/25 09:40 07/29/25 09:43 Oxygen Delivery Method Room Air Weight: 123 lb Body Mass Index (BMI) 23.2 Lab / Micro Data Attestation: I reviewed the patient's lab results. Physical Exam Const General Appearance: cooperative HEENT normocephalic Face and Sinus: normal facial exam External Ear: external ears normal Eyes PERRL General Eye: normal appearance of both eyes Neck full ROM General: normal visual inspection Resp normal respiratory effort Cardio regular rate and regular rhythm Palpation: normal PMI Rate: regular rate Rhythm: regular rhythm external exam normal Back/Spine Cervical Spine: cervical ROM normal Thoracic Spine / Upper Back: normal to inspection Lumbar Spine / Lower Back: normal to inspection Extremity normal to inspection Skin Wounds: wounds noted Wound Narrative: Butterfly shaped open wound superficial on bilateral right and left buttocks and sacral area Psych Appearance: grossly normal Speech: normal speech Debridement Note Debridement Note Wound debrided: Bilateral buttocks and sacrum area Laterality: Left Wound Grade/Stage: Stage II Type of Debridement: Excisional debridement Anesthesia Used: 5% Lidocaine Gel Depth: in the subcutaneous layer Percentage of wound debrided: 100 Instrument Used: 5mm curette Tissue Removed: Fibrin Severity: Limited To Skin Breakdown Amount of bleeding with debridement: Mild Bleeding Controlled with: Compression and gauze Patient tolerated procedure: Patient tolerated procedure well Post-Debridement Measurements and Additional Note: Post-Debridement Measurements/Treatment - Nurse 1 - General Ulcer Assessment Start: 07/22/25 09:18 Freq: Status: Active Protocol: DEYANIRA Activity Type Activity Date Activity User E-sign Co-sign Detail Recorded Client Recorded Date Recorded By Document 07/22/25 09:25 RB [id number] 07/22/25 09:32 RB Document 07/29/25 09:43 MT [id number] 07/29/25 09:53 MT Document 08/05/25 09:40 DL [id number] 08/05/25 09:46 DL 07/22/25 07/29/25 08/05/25 09:25 09:43 09:40 WC - Today's Visit Information Type of service Initial Visit Follow-up Visit Follow-up Visit (Physician/SENIOR IOS SOFTWARE ENGINEER (Physician/SENIOR IOS SOFTWARE ENGINEER ) ) Arrival Mode Ambulatory Ambulatory Wheelchair Transfer Assistance None None Accompanied by son in law Patient Identification Verified (Name & Yes Yes Yes ) Patient Requires Transmission-Based No No Precautions Safety Precautions Fall Prevention Height and Weight Height 5 ft 1 in Weight 123 lb Weight in Pounds 123.0 lbs Body Mass Index (BMI) 23.2 23.2 23.2 BMI Classification Normal Normal Normal Vital Signs Temperature (97.8 F-99.1 F) 97.4 F L 98 F 98.1 F Temperature Source Temporal Temporal Temporal Pulse Rate (60-100) 67 56 L 61 Pulse Location Monitor Monitor Monitor Respiratory Rate (12-18) 18 18 14 Respiratory rate source Observation Observation Observation Oxygen Delivery Method Room Air Blood Pressure (90/60-120/80) 129/60 H 118/60 113/66 Blood Pressure Mean (mm Hg) 83 79 81 Source Monitor Monitor Monitor Position Semi-Fowlers Sitting Blood Pressure Location Left Arm Right Arm History Since Last Visit- (Skip if this is Patient's initial visit) Have you changed medications since your No No last visit? Any new allergies or adverse reactions No No Had a fall/change in ADL's that may No No increase risk of falls Signs or symptoms of abuse and/or No No neglect since last visit Have you been in the hospital since your No No last visit? Has dressing in place as prescribed Yes Yes Yes Has compression in place as prescribed N/A Yes N/A Has offloadiing in place as prescribed N/A Yes Yes Experienced any changes in pain level or No Yes No management Left Footwear Regular Shoe Regular Shoe Right Footwear Regular Shoe Regular Shoe Pain Scale: 0-10 Numeric Is Patient Pain Free? No Yes Yes buttock -Description Aching -Intensity 5 -Duration (hours) Acute -Pain Behavior Withdrawal from Touch -Pain Aggravating Factors ADL's -Alleviating Factors/Interventions None Communication Assessment Preferred language Greenlandic Retail Loss Prevention Investigator Required No Able to Read Yes Able to Write Yes Communication Tools None Caregiver Communication Skills No Impairment Impairment Right Hearing Abillity Normal Left Hearing Abillity Normal Visual Assistive Devices Glasses Teaching Assessment Preferences Verbal,Written, Demonstration Barriers to Learning Knowledge Deficit Readiness To Learn Poor Willingness to Engage in Self Management Low Activies Readiness to Engage in Self Management Low Activities Anxiety Level Calm Cooperation Cooperative Perception Coherent Interest in Health Problem Asks Questions Education Importance Acknowledges Need Does Patient Smoke tobacco or other No substances Smoking Status Never smoker Is Patient Diabetic Yes Functional Assessment Recent Decline in Ability to Perform Ambulation, Bathing,Eating/ Feeding Assistive Device With Patient No Culture/Gnosticism/Ordering Machine Operator Cultural/Gnosticism Needs that may affect No Treatment Plan Would you allow our hospital flight/transport nurse to No meet you for the purpose of spiritual/ emotional support? Ordering Machine Operator to contact place of zoroastrian No Teaching: Wound Center *Welcome to the Wound Center -Person Taught Patient,Family -Teaching Method Discussion, Demonstration -Response to teaching Verbalize Understanding WC - Nurse 1 - General Ulcer Measurement Start: 07/22/25 09:18 Freq: Status: Active Protocol: Activity Type Activity Date Activity User E-sign Co-sign Detail Recorded Client Recorded Date Recorded By Document 07/22/25 09:25 RB [id number] 07/22/25 09:32 RB Document 07/29/25 09:43 MT [id number] 07/29/25 09:53 MT Document 08/05/25 09:40 DL [id number] 08/05/25 09:46 DL 07/22/25 07/29/25 08/05/25 09:25 09:43 09:40 Wound Center Nurse 1 1. RIGHT/LEFT BUTTOCK CLUSTER -Combined with other wound No No -Current Size (cm) - Length 5.2 3.6 3.3 -Current Size (cm) - Width 5.4 1.5 1.2 -Current Size (cm) - Depth 0.1 0.1 0.1 -Total Square Cm 28.08 5.40 3.96 -Photo Taken Yes Yes Yes -Tunneling No No -Undermining/Tunneling No No -Circular Undermining No No -Exudate Amt Medium Medium Medium -Exudate Type Serosanguineous Serosanguineous Serosanguineous -Wound Margin Distinct, Distinct, Distinct, Outline Outline Outline Attached Attached Attached -Granulation Amt Medium (34-66%) Medium (34-66%) Medium (34-66%) -Granulation Quality Bieber Bieber Red -Slough/Fibrin Yes Yes -Necrosis Amt Medium (34-66%) Medium (34-66%) Medium (34-66%) -Necrotic Tissue Type Adherent Slough Adherent Slough Adherent Slough -Structure Exposed N/A N/A N/A -Texture (Hillary-wound Skin Appearance) Assessed, Assessed Scarring Excoriation -Moisture (Hillary-wound Skin Appearance) Assessed Assessed No Abnormality -Color (Hillary-wound Skin Appearance) Assessed Assessed No Abnormality -Temperature (Hillary-wound Skin No Abnormality No Abnormality No Abnormality Appearance) (Pt Warm) (Pt Warm) (Pt Warm) -Tenderness on Palpation (Hillary-wound No No No Skin Appearance) -Ulcer Cleansing Wound Cleanser Wound Cleanser Soap and Water -Foul Odor after Cleansing No No No -Anesthetic Used 5% Lidocaine 5% Lidocaine 5% Lidocaine Gel Gel Gel WC - Nurse 2 - General Ulcer CM Notes Start: 07/22/25 09:18 Freq: Status: Active Protocol: Activity Type Activity Date Activity User E-sign Co-sign Detail Recorded Client Recorded Date Recorded By Document 07/22/25 10:04 BMF [id number] 07/22/25 10:14 BMF Edit Result 07/22/25 10:04 BMF (1) [id number] 07/23/25 13:55 BMF Document 07/29/25 09:56 BMF [id number] 07/29/25 10:04 BMF Document 08/05/25 09:52 BMF [id number] 08/05/25 09:56 BMF (1) 1. RIGHT/LEFT BUTTOCK CLUSTER - Debridement, SubQ, ea addt'l 20sq cm => 1 or part thereof 07/22/25 07/29/25 08/05/25 10:04 09:56 09:52 Wound Center Nurse 2 1. RIGHT/LEFT BUTTOCK CLUSTER -Time 10:06 09:57 09:52 -Correct Patient Yes Yes Yes -Correct Side, Site, Position Yes Yes Yes -Correct Procedure Yes Yes Yes -Procedure Performed Yes Yes Yes -Type of Procedure Debridement Debridement Debridement -Clinical Debridement Subcutaneous Subcutaneous Subcutaneous -Tissue Removed Subcutaneous Subcutaneous Subcutaneous -Post Debridement (cm) - Length 6 4 3.5 -Post Debridement (cm) - Width 6 1 1 -Post Debridement (cm) - Depth 0.1 0.2 0.1 -Total Square (Post) (cm) 36 4 3.5 -Area of Debridement (cm) - Length 6 4 3.5 -Area of Debridement (cm) - Width 6 1 1 -Total Square (Area) (cm) 36 4 3.5 -Tunneling No No No -Undermining/Tunneling No No No -Circular Undermining No No No -Wound/Ulcer Outcome Not Healed Not Healed Not Healed -Ulcer Cleansing Rinsed/ Rinsed/ Rinsed/ Irrigated with Irrigated with Irrigated with Saline Saline Saline -Foul Odor after Cleansing No No No -Bioengineered Tissue No No No -Bleeding Controlled with Pressure Pressure Pressure -Treatment Response Procedure Procedure Procedure Tolerated Well Tolerated Well Tolerated Well -Debridement - Subq, 1st 20sq cm Yes Yes Yes -Debridement, SubQ, ea addt'l 20sq cm 1 or part thereof Pain Scale: 0-10 Numeric Is Patient Pain Free? Yes Yes Yes - Nurse 3 - General Ulcer D/C NN Start: 07/22/25 09:18 Freq: Status: Active Protocol: Activity Type Activity Date Activity User E-sign Co-sign Detail Recorded Client Recorded Date Recorded By Document 07/22/25 10:44 RB [id number] 07/22/25 10:45 RB Document 07/29/25 10:22 DL [id number] 07/29/25 10:23 DL Document 08/05/25 10:14 RB [id number] 08/05/25 10:15 RB 07/22/25 07/29/25 08/05/25 10:44 10:22 10:14 Wound Care Center Nurse 3 1. RIGHT/LEFT BUTTOCK CLUSTER -Ulcer Cleansing Rinsed/ Soap and Water Rinsed/ Irrigated with Irrigated with Saline Saline -Foul Odor after Cleansing No -Primary Dressing Applied Aquacel Extra, Aquacel Extra, Aquacel Extra, Silicone Border Sacral Foam Silicone Border Foam 6x6 Border Foam 4x4 -Aquacel Extra 1 1 1 -Sacral Foam Border 1 -Silicone Border Foam 4x4 1 -Silicone Border Foam 6x6 1 Treatment Response Procedure Procedure Procedure Tolerated Well Tolerated Well Tolerated Well Pain Scale: 0-10 Numeric Is Patient Pain Free? Yes Yes Yes - Visit Discharge Discharge Condition Stable Stable Stable Ambulatory Status Wheelchair Wheelchair Wheelchair Transportation Private Auto Private Auto Private Auto Accompanied by SON IN LAW son Medication Reconcilliation completed & No No provided to patient/care provider Clinical Summary of Care Provided Yes Yes Notes: 2 PERSON ASSIST TO WHEELCHAIR Facility Type Home Health Orders Sent Yes Assessment/Plan Assessment/Plan (1) Urinary retention: CODE(S): R33.9 - Retention of urine, unspecified (2) Fecal incontinence: CODE(S): R15.9 - Full incontinence of feces QUALIFIERS: Fecal incontinence type: unspecified Qualified Code(s): R15.9 - Full incontinence of feces (3) Decubitus ulcer of buttock, stage 2: CODE(S): L89.302 - Pressure ulcer of unspecified buttock, stage 2 QUALIFIERS: Laterality: right Qualified Code(s): L89.312 - Pressure ulcer of right buttock, stage 2 PLAN: Wash buttocks and sacral area with antibacterial soap and water apply Aquacel extra to wound base moistened and then cover with a ABD pad daily and as needed if Becomes soiled Follow-up in 1 week Continue to rotate in bed every hour. Offload is much as possible with a Roho pad under her buttocks when seated in chairs Encourage patient to move frequently and walk increase food intake with protein and 60 g of protein a day. Patient did like the Shashi and started taking it daily (4) Decubitus ulcer of sacral area: CODE(S): L89.159 - Pressure ulcer of sacral region, unspecified stage QUALIFIERS: Pressure injury stage: stage 2 Qualified Code(s): L89.152 - Pressure ulcer of sacral region, stage 2 (5) Decubitus ulcer of left buttock, stage 2: CODE(S): L89.322 - Pressure ulcer of left buttock, stage 2
== END 2025-08-18 23:59 | disposition home or self-care (01) ==
LOC: WC 09:30
PROVIDERS: PCP Internal Medicine; Referring Provider Internal Medicine; Visit Provider Nurse Practitioner
DX: L89.312 Pressure ulcer of right buttock, stage 2 (principal); L89.322 Pressure ulcer of left buttock, stage 2; L89.152 Pressure ulcer of sacral region, stage 2; R33.9 Retention of urine, unspecified; R15.9 Full incontinence of feces; I10 Essential (primary) hypertension; I25.10 Atherosclerotic heart disease of native coronary artery without angina pectoris
CPT/HCPCS: 11042; 11045; 99213; G0463

== ENCOUNTER 2025-08-17 10:51 | Emergency (ER) | payer MEDICARE, SELFPAY ==
--- OUTSIDE RECORDS SUMMARY | 2025-07-27 17:03 | XMS RPT_ITS ---
Author Name Auto Generated Organization OHIP Care Team Providers Care Nurse Practitioner Physician Assistant Name Role Phone GANTA, DILLAN Referring Unavailable GANTA, DILLAN Primary Care Unavailable GANTA, DILLAN Primary Care Unavailable GANTA, DILLAN Referring Unavailable GANTA, DILLAN Primary Care Unavailable OLDER, MARIPOSA Attending Unavailable GANTA, DILLAN Referring Unavailable GANTA, DILLAN Primary Care Unavailable GANTA, DILLAN Primary Care Unavailable OLDER, MARIPOSA Referring Unavailable GANTA, DILLAN Primary Care Unavailable TOM BALTAZAR Attending Unavailable GANTA, DILLAN Attending Unavailable GANTA, DILLAN Primary Care Unavailable GANTA, DILLAN Attending Unavailable GANTA, DILLAN Primary Care Unavailable GANTA, DILLAN Attending Unavailable GANTA, DILLAN Primary Care Unavailable DEANA KLEIN Attending Unavailable GANTA, DILLAN Primary Care Unavailable GANTA, DILLAN Referring Unavailable GANTA, DILLAN Primary Care Unavailable GANTA, DILLAN Attending Unavailable GANTA, DILLAN Primary Care Unavailable GANTA, DILLAN Referring Unavailable GANTA, DILLAN Primary Care Unavailable OLDER, MARIPOSA Attending Unavailable OLDER, MARIPOSA Referring Unavailable GANTA, DILLAN Primary Care Unavailable OLDER, MARIPOSA Referring Unavailable GANTA, DILLAN Primary Care Unavailable GANTA, DILLAN Attending Unavailable GANTA, DILLAN Primary Care Unavailable SELF Referring Unavailable GANTA, DILLAN Attending Unavailable GANTA , DR DILLAN Cabrales Attending Unavailabl e JACK DELACRUZ, DR DILLAN Cabrales Primary Care Unavailabl e PROBLEMS DATE TYPE CONDITION / CODE ATTENDING STATUS [facility] 07/27/2025 Admitting Diagnosis Urinary tract infection, site not specified / N39.0(ICD-10) JACK DELACRUZ, DR DILLAN Cabrales Active [facility] 07/17/2025 Active Pressure injury of right buttock, stage 2 (HCC) / L89.312(ICD-10) DILLAN SANTIAGO Active [facility] 07/17/2025 Active Chronic indwelli ng [place] catheter / Z97.8(ICD-10) GANTA, [facility] Active [facility] 07/17/2025 Active Lymphocytosis / D72.820(ICD-10) GANTA, [facility] Active [facility] 07/17/2025 Active Leukocytosis, unspecified type / D72.829(ICD-10) GANTA, [facility] Active [facility] 07/17/2025 Active Recurrent falls / R29.6(ICD-10) GANTA, [facility] Active [facility] 06/03/2025 Active Acquired deformi ty of toe, unspecified laterality / M20.60(ICD-10) GANTA, [facility] Active [facility] 06/03/2025 Active Recurrent UTI / N39.0(ICD-10) GANDHRUV, [facility] Active [facility] 06/03/2025 Active Anxiety and depr ession / F41.9(ICD-10) GANTA, [facility] Active [facility] 06/03/2025 Active Anxiety and depr ession / F32.A(ICD-10) JACK, [facility] Active [facility] 06/03/2025 Active Urinary retentio n / R33.9(ICD-10) GANDHRUV, [facility] Active [facility] 06/03/2025 Active Onychomycosis / B35.1(ICD-10) GANDHRUV, [facility] Active [facility] 06/03/2025 Active Thickened nail / L60.2(ICD-10) GANTA, [facility] Active [facility] 06/03/2025 Active IGTN (ingrowing toe nail) / L60.0(ICD-10) GANTA, [facility] Active [facility] 05/06/2025 Active Acute heart fail ure, unspecified heart failure type (HCC) / I50.9(ICD-10) NA Active [facility] 05/06/2025 Active Prediabetes / R73.03(ICD-10) NA Active [facility] 04/17/2025 Active Ambulatory dysfu nction / R26.2(ICD-10) GANDHRUV [facility] Active [facility] 04/17/2025 Active Weakness of both lower extremities / R29.898(ICD-10) JACK [facility] 04/17/2025 Active Balance disorder / R26.89(ICD-10) JACK [facility] 04/17/2025 Active S/P hip hemiarthroplasty / Z96.649(ICD-10) JACK [facility] 04/17/2025 Active Closed fracture of left hip with delayed healing, subsequent encounter / S72.002G(ICD-10) JACK [facility] 04/17/2025 Active 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 (HCC) / G30.1(ICD-10) JACK [facility] 04/17/2025 Active 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 (HCC) / F02.B18(ICD-10) JACK [facility] 04/17/2025 Active Pressure injury of sacral region, unstageable (HCC) / L89.150(ICD-10) JACK [facility] 01/24/2025 Active Cognitive impair ment, mild, so stated / G31.84(ICD-10) NA [facility] 12/23/2024 Active Self-catheterize s urinary bladder / Z78.9(ICD-10) TOM BALTAZAR Active [facility] 12/23/2024 Active Unable to void / R33.9(ICD-10) TOM BALTAZAR Active [facility] 12/23/2024 Active Urinary problem / R39.89(ICD-10) TOM BALTAZAR Active [facility] 11/05/2024 Active Encounter to est ablish care / Z76.89(ICD-10) OLDER, MARIPOSA Active [facility] 11/05/2024 Active Hypothyroidism, unspecified type / E03.9(ICD-10) OLDER, MARIPOSA Active [facility] 11/05/2024 Active Ambulates with c ane / Z99.89(ICD-10) OLDER, MARIPOSA Active [facility] 11/05/2024 Active Concern about me sánchez / Z71.1(ICD-10) OLDER, MARIPOSA Active [facility] 11/05/2024 Active Assistance neede d for bathing / Z74.1(ICD-10) OLDER, MARIPOSA Active [facility] 11/05/2024 Active Lipid screening / Z13.220(ICD-10) OLDER, MARIPOSA Active [facility] PROCEDURES No Procedure Records Found RESULTS CNPN Observed: 07/31/2025 12:00 AM Status: COMPLETED Source: [facility] Telephone (UROLWS) MICHAELA BRANDT ([id number]) 1940 F Date Time Provider Department 07/31/25 TOM BALTAZAR During your visit today, we recorded the following information about you: Raegan Moore MA 07/31/2025 10:01 AM Signed Patient was visited by home health today. She has a 10 croatian catheter which was unintentionally removed. They do not have any supplies to replace the catheter and neither does the patient. Home Health asking if the office has any and if the patient can be seen today to replace it? Please contact Savanah back at [phone]. Nusrat Crespo LPN 07/31/2025 10:25 AM Signed Called Savanah With [facility]. Savanah aware that we do not have urology staff in clinic today nor do we carry 10 FR catheters. Per Savanah they will send patient to emergency room for replacement of catheter. Nusrat Crespo LPN Allergies As of Date: 07/31/2025 (No Known Allergies) Date Reviewed: 07/17/2025 Reviewed by: Mike Guo MA - Fully Assessed Reason for Visit: Patient Update [1234] Prescriptions as of 07/31/2025 - levothyroxine (EUTHYROX) 50 mcg tablet Take 1 tablet by mouth once daily. - traZODone (DESYREL) 50 mg tablet Take 1 tablet by mouth daily at bedtime. - furosemide (LASIX) 20 mg tablet Please give her Sunday and in the morning. Or if her weight increases by 3 pounds on any given day, give one pill on that day - clonazePAM (KLONOPIN) 0.5 mg tablet Take 1 tablet by mouth three times a day as needed for anxiety for up to 30 days. - sodium chloride 0.9 % IRRIGATION Irrigate 60 mL as instructed once daily as needed. - apixaban (ELIQUIS) 5 mg tab(s) Take [...] Fr misc Self catheterizes four times daily Problem List As Of Date 07/31/2025 Noted Resolved Urinary catheter in place [Z96.0] 04/17/2025 Ambulatory dysfunction [R26.2] 04/17/2025 Pressure injury of sacral region, unstageable (*04/17/2025 DELMY (dementia of Alzheimer type) ([facility]) [G30.9, *04/17/2025 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] 04/17/2025 Closed fracture of left hip ([facility]) [S72.002A] 04/17/2025 Balance disorder [R26.89] 04/17/2025 Weakness of both lower extremities [R29.898] 04/17/2025 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] 06/03/2025 Encounter Status:Closed by NUSRAT CRESPO on 07/31/25 CNPN Observed: 07/31/2025 12:00 AM Status: COMPLETED Source: [facility] Telephone (NAVWST) MICHAELA BRANDT ([id number]) 1940 F Date Time Provider Department 07/31/25 KENTRELL MONTGOMERY During your visit today, we recorded the following information about you: Kentrell Montgomery MSW 07/31/2025 10:09 AM Signed Patient daughter Maribeth called this and asked for numbers for other home care agencies ie. [facility], [facility], [facility]. provided daughter with numbers for these locations. [facility] is helping now with in home care needs. Daughter notes the cost is high due to number of hours needed. Daughter would like to compare agency costs. Allergies As of Date: 07/31/2025 (No Known Allergies) Date Reviewed: 07/17/2025 Reviewed by: Mike Guo MA - Fully Assessed Prescriptions as of 07/31/2025 - levothyroxine (EUTHYROX) 50 mcg tablet Take 1 tablet by mouth once daily. - traZODone (DESYREL) 50 mg tablet Take 1 tablet by mouth daily at bedtime. - furosemide (LASIX) 20 mg tablet Please give her Sunday and in the morning. Or if her weight increases by 3 pounds on any given day, give one pill on that day - clonazePAM (KLONOPIN) 0.5 mg tablet Take 1 tablet by mouth three times a day as needed for anxiety for up to 30 days. - sodium chloride 0.9 % IRRIGATION Irrigate 60 mL as instructed once daily as needed. - apixaban (ELIQUIS) 5 mg tab(s) Take [...] Fr misc Self catheterizes four times daily Problem List As Of Date 07/31/2025 Noted Resolved Urinary catheter in place [Z96.0] 04/17/2025 Ambulatory dysfunction [R26.2] 04/17/2025 Pressure injury of sacral region, unstageable (*04/17/2025 DELMY (dementia of Alzheimer type) ([facility]) [G30.9, *04/17/2025 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] 04/17/2025 Closed fracture of left hip ([facility]) [S72.002A] 04/17/2025 Balance disorder [R26.89] 04/17/2025 Weakness of both lower extremities [R29.898] 04/17/2025 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] 06/03/2025 Encounter Status:Closed by KENTRELL MONTGOMERY on 07/31/25 MIK Observed: 07/31/2025 12:00 AM Status: COMPLETED Source: [facility] Telephone (JibJab) MICHAELA BRANDT ([id number]) 1940 F Date Time Provider Department 07/31/25 DILLAN SANTIAGO INTWS During your visit today, we recorded the following information about you: Michaelle Tai, RN 07/31/2025 10:46 AM Signed Savanah- Director of [facility]- reports patient dislodged her catheter today, and needs it put back in. Reports [facility] placed the catheter before discharge and it is a 10 [place] size. Reports there are no orders that came with the catheter. [facility] does not have a 10 Fr, and asking pcp if they can replace with 12 Fr. Note Savanah spoke with Urology today and was advised to take pt to ER to have catheter put back in. See today's telephone note in epic. Please advise and phone Savanah with reply: [phone] Yuko Rasmussen 07/31/2025 2:14 PM Signed Savanah from [facility] called again for status update on alternative suggestions for catheter reinsertion. Savanah stated that since the provider has not responded yet, she will tell the patient's daughter to have patient transported to ER by squad. Dillan Santiago MD 07/31/2025 2:56 PM Signed We are not generally taking care of catheter stuff so I wont be able to comment much on it , ok for Er Regards, Gabi Cesar MD, RN 07/31/2025 3:22 PM Signed Savanah- Director of [facility] called and is notified of providers message and instructions. She voices understanding. She states she called the Pt's daughter and left a message to let her know about her mother and that they recommended that she take her to the ER. She states the daughter has not gotten back to them as of yet, and suggested we call the daughter. Called and left a voicemail for the Patient's daughter to call back and ask for a nurse to receive the providers message that Pt should go to the ER about her catheter. ZACHARIAH Antonio Stephanie, RN 07/31/2025 4:01 PM Signed Patient's daughter calls back and notified of below. Daughter voices understanding. Daughter states that they will take patient to [facility] ER. Advised daughter to also mention at ER that patient has been having issues with bowel movements. Jagruti Veloz RN Allergies As of Date: 07/31/2025 (No Known Allergies) Date Reviewed: 07/17/2025 Reviewed by: Mike Guo MA - Fully Assessed Reason for Visit: Catheter concern [Other] Prescriptions as of 08/03/2025 - levothyroxine (EUTHYROX) 50 mcg tablet Take 1 tablet by mouth once daily. - traZODone (DESYREL) 50 mg tablet Take 1 tablet by mouth daily at bedtime. - furosemide (LASIX) 20 mg tablet Please give her Sunday and in the morning. Or if her weight increases by 3 pounds on any given day, give one pill on that day - clonazePAM (KLONOPIN) 0.5 mg tablet Take 1 tablet by mouth three times a day as needed for anxiety for up to 30 days. - sodium chloride 0.9 % IRRIGATION Irrigate 60 mL as instructed once daily as needed. - apixaban (ELIQUIS) 5 mg tab(s) Take [...] Fr misc Self catheterizes four times daily Problem List As Of Date 07/31/2025 Noted Resolved Urinary catheter in place [Z96.0] 04/17/2025 Ambulatory dysfunction [R26.2] 04/17/2025 Pressure injury of sacral region, unstageable (*04/17/2025 DELMY (dementia of Alzheimer type) ([facility]) [G30.9, *04/17/2025 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] 04/17/2025 Closed fracture of left hip ([facility]) [S72.002A] 04/17/2025 Balance disorder [R26.89] 04/17/2025 Weakness of both lower extremities [R29.898] 04/17/2025 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] 06/03/2025 Encounter Status:Closed by MIKE GUO on 08/03/25 CNPN Observed: 07/29/2025 12:00 AM Status: COMPLETED Source: [facility] Telephone (INTMWS) MICHAELA BRANDT ([id number]) 1940 F Date Time Provider Department 07/29/25 DILLAN SANTIAGO During your visit today, we recorded the following information about you: Allergies As of Date: 07/29/2025 (No Known Allergies) Date Reviewed: 07/17/2025 Reviewed by: Mike Guo MA - Fully Assessed Reason for Visit: Results [95] Prescriptions as of 08/05/2025 - levothyroxine (EUTHYROX) 50 mcg tablet Take 1 tablet by mouth once daily. - traZODone (DESYREL) 50 mg tablet Take 1 tablet by mouth daily at bedtime. - furosemide (LASIX) 20 mg tablet Please give her Sunday and in the morning. Or if her weight increases by 3 pounds on any given day, give one pill on that day - clonazePAM (KLONOPIN) 0.5 mg tablet Take 1 tablet by mouth three times a day as needed for anxiety for up to 30 days. - sodium chloride 0.9 % IRRIGATION Irrigate 60 mL as instructed once daily as needed. - busPIRone (BUSPAR) 5 mg tablet Take [...] Fr misc Self catheterizes four times daily Problem List As Of Date 07/29/2025 Noted Resolved Urinary catheter in place [Z96.0] 04/17/2025 Ambulatory dysfunction [R26.2] 04/17/2025 Pressure injury of sacral region, unstageable (*04/17/2025 DELMY (dementia of Alzheimer type) ([facility]) [G30.9, *04/17/2025 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] 04/17/2025 Closed fracture of left hip ([facility]) [S72.002A] 04/17/2025 Balance disorder [R26.89] 04/17/2025 Weakness of both lower extremities [R29.898] 04/17/2025 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] 06/03/2025 Encounter Status:Closed by RUBEN HERNANDEZ on 08/05/25 CUR Observed: 07/27/2025 5:16 PM Status: F Source: [facility] . MICRO - Microbiology PROCEDURE: Urine Culture [*1] SOURCE: Urine, Clean Catch BODY SITE: COLLECTED DATE/TIME: 07/27/2025 17:16 EDT RECEIVED DATE/TIME: 07/27/2025 19:06 EDT START DATE/TIME: 07/27/2025 19:06 EDT FREE TEXT SOURCE: FINAL REPORTS Final Report [] Verified Date/Time/Personnel: 07/28/2025 14:06 EDT >100,000 cfu/ml Multiple bacterial morphotypes present. Probable Contamination. Suggest recollection if clinically indicated. PRELIMINARY REPORTS Preliminary Report [] Verified Date/Time/Personnel: 07/27/2025 19:59 EDT Specimen received in lab. Performing Locations *1: This test was performed at: [facility], [address] [place] [address], [id number] UA Collected: 07/27/2025 5:15 PM Status: F Source: [facility] TYPE CODE TESTS RESULT OUT OF RANGE REFERENCE UNITS LAB SPCUA(LOINC) UA Specimen Type Clean Catch LAB CLRUA(LOINC) UA Color Yellow LAB APPUA(LOINC) UA Appear Cloudy Abnormal Clear LAB SGUA(LOINC) UA Spec Grav 1.015 1.015-1.025 LAB GLUA(LOINC) UA Glucose Negative Negative mg/dL LAB BILUA(LOINC) UA Bili Negative Negative LAB KETUA(LOINC) UA Ketones Negative Negative mg/dL LAB BLDUA(LOINC) UA Blood Negative Negative LAB PHUA(LOINC) UA pH 6.0 5.0 - 8.0 LAB PROUA(LOINC) UA Protein Negative Negative mg/dL LAB UROUA(LOINC) UA Urobilinogen 0.2 0.2-1.0 E.U ./dL LAB NITUA([facility]) UA Nitrite Positive Abnormal Negative LAB LEUUA([facility]) UA Leuk Est Large Abnormal Negative Performed By: #### UAMIC, UA #### [facility] [address], [place] [address] UAMIC Collected: 07/27/2025 5:15 PM Status: F Source: [facility] TYPE CODE TESTS RESULT OUT OF RANGE REFERENCE UNITS LAB RBCUA([facility]) UA RBC 0-2 0-2 /hpf LAB WBCUA([facility]) UA WBC 50-100 Abnormal 0-5 /hpf LAB EPIUA([facility]) UA Squam Epithelial 0-2 0-20 /hpf LAB BACUA([facility]) UA Bacteria 2+ Abnormal Negative /hpf Performed By: #### UAMIC, UA #### [address] [address] CNPN Observed: 07/24/2025 12:00 AM Status: COMPLETED Source: [facility] Telephone (INTLocoMotive LabsWS) MICHAELA BRANDT ([id number]) 1940 F Date Time Provider Department 07/24/25 DILLAN SANTIAGO INTWS During your visit today, we recorded the following information about you: Michaelle Tai, RN 07/24/2025 12:23 PM Signed [facility]- phoned to report patient had a missed PT appt today. Reports daughter sent text stating patient had a last minute appt today that was at the same time as PT appt, and rescheduled for early next week. Allergies As of Date: 07/24/2025 (No Known Allergies) Date Reviewed: 07/17/2025 Reviewed by: Mike Guo MA - Fully Assessed Reason for Visit: Missed therapy appt [Other] Prescriptions as of 07/24/2025 - levothyroxine (EUTHYROX) 50 mcg tablet Take 1 tablet by mouth once daily. - traZODone (DESYREL) 50 mg tablet Take 1 tablet by mouth daily at bedtime. - furosemide (LASIX) 20 mg tablet Please give her Sunday and in the morning. Or if her weight increases by 3 pounds on any given day, give one pill on that day - clonazePAM (KLONOPIN) 0.5 mg tablet Take 1 tablet by mouth three times a day as needed for anxiety for up to 30 days. - sodium chloride 0.9 % IRRIGATION Irrigate 60 mL as instructed once daily as needed. - apixaban (ELIQUIS) 5 mg tab(s) Take [...] 2025. - Catheter (SELF-CATHETER, FEMALE) [facility] Self [facility] four times daily Problem List As Of Date 07/24/2025 Noted Resolved Urinary catheter in place [Z96.0] 04/17/2025 Ambulatory dysfunction [R26.2] 04/17/2025 Pressure injury of sacral region, unstageable (*04/17/2025 DELMY (dementia of Alzheimer type) ([facility]) [G30.9, *04/17/2025 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] 04/17/2025 Closed fracture of left hip ([facility]) [S72.002A] 04/17/2025 Balance disorder [R26.89] 04/17/2025 Weakness of both lower extremities [R29.898] 04/17/2025 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] 06/03/2025 Encounter Status:Closed by Michaelle TAI on 07/24/25 ARIELN Observed: 07/24/2025 12:00 AM Status: COMPLETED Source: [facility] Telephone (INTMWS) MICHAELA BRANDT ([id number]) 1940 F Date Time Provider Department 07/24/25 DILLAN SANTIAGO INTWS During your visit today, we recorded the following information about you: Jagruti Veloz RN 07/24/2025 4:50 PM Signed Rula LEONARD from [facility] calls with speech therapy plan of care. Speech therapy will see patient starting 07/19 1 times a week times 5 weeks for cognitive communication. No call back needed unless questions. ZACHARIAH Farris Joy, APRN.[facility] 07/27/2025 9:08 AM Signed Agree with plan and pcp ok to follow. Thank you Mariposa Salinas APRN.[facility] Allergies As of Date: 07/24/2025 (No Known Allergies) Date Reviewed: 07/17/2025 Reviewed by: Mike Guo MA - Fully Assessed Reason for Visit: Plan of Care [Other] Prescriptions as of 07/27/2025 - levothyroxine (EUTHYROX) 50 mcg tablet Take 1 tablet by mouth once daily. - traZODone (DESYREL) 50 mg tablet Take 1 tablet by mouth daily at bedtime. - furosemide (LASIX) 20 mg tablet Please give her Sunday and in the morning. Or if her weight increases by 3 pounds on any given day, give one pill on that day - clonazePAM (KLONOPIN) 0.5 mg tablet Take 1 tablet by mouth three times a day as needed for anxiety for up to 30 days. - sodium chloride 0.9 % IRRIGATION Irrigate 60 mL as instructed once daily as needed. - apixaban (ELIQUIS) 5 mg tab(s) Take [...] 2025. - Catheter (SELF-CATHETER, FEMALE) [facility] Self catheterizes four times daily Problem List As Of Date 07/24/2025 Noted Resolved Urinary catheter in place [Z96.0] 04/17/2025 Ambulatory dysfunction [R26.2] 04/17/2025 Pressure injury of sacral region, unstageable (*04/17/2025 DELMY (dementia of Alzheimer type) ([facility]) [G30.9, *04/17/2025 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] 04/17/2025 Closed fracture of left hip ([facility]) [S72.002A] 04/17/2025 Balance disorder [R26.89] 04/17/2025 Weakness of both lower extremities [R29.898] 04/17/2025 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] 06/03/2025 Encounter Status:Closed by MARIPOSA SALINAS on 07/27/25 MIK Observed: 07/24/2025 12:00 AM Status: COMPLETED Source: [facility] Telephone (INTMWS) MICHAELA BRANDT ([id number]) 1940 F Date Time Provider Department 07/24/25 DILLAN SANTIAGO During your visit today, we recorded the following information about you: Katie Langston LPN 07/24/2025 3:45 PM Signed Larisa from [facility] [facility] calling will begin OT visits next week, delay of care since scheduling was full. No need for return call. Mariposa Salinas APRN.CNP 07/27/2025 9:09 AM Signed Ok for delay Mariposa Salinas APRN.CNP Allergies As of Date: 07/24/2025 (No Known Allergies) Date Reviewed: 07/17/2025 Reviewed by: Mike Guo MA - Fully Assessed Reason for Visit: delay of care for OT [Other] Prescriptions as of 07/27/2025 - levothyroxine (EUTHYROX) 50 mcg tablet Take 1 tablet by mouth once daily. - traZODone (DESYREL) 50 mg tablet Take 1 tablet by mouth daily at bedtime. - furosemide (LASIX) 20 mg tablet Please give her Sunday and in the morning. Or if her weight increases by 3 pounds on any given day, give one pill on that day - clonazePAM (KLONOPIN) 0.5 mg tablet Take 1 tablet by mouth three times a day as needed for anxiety for up to 30 days. - sodium chloride 0.9 % IRRIGATION Irrigate 60 mL as instructed once daily as needed. - apixaban (ELIQUIS) 5 mg tab(s) Take [...] Fr misc Self catheterizes four times daily Problem List As Of Date 07/24/2025 Noted Resolved Urinary catheter in place [Z96.0] 04/17/2025 Ambulatory dysfunction [R26.2] 04/17/2025 Pressure injury of sacral region, unstageable (*04/17/2025 DELMY (dementia of Alzheimer type) ([facility]) [G30.9, *04/17/2025 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] 04/17/2025 Closed fracture of left hip ([facility]) [S72.002A] 04/17/2025 Balance disorder [R26.89] 04/17/2025 Weakness of both lower extremities [R29.898] 04/17/2025 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] 06/03/2025 Encounter Status:Closed by MARIPOSA SALINAS on 07/27/25 PROGRESS Observed: 07/17/2025 12:57 PM Status: COMPLETED Source: [facility] ID: [id number] Author: DILLAN SANTIAGO MD Service: ? Author Type: Physician Type: Progress Notes Filed: 07/17/2025 13:07 Note Text: Reason for Visit Follow up HPI Michaela Brandt is an 84-year-old female, with a history of dementia, presenting with multiple falls, cystitis, and pressure ulcers. Michaela was admitted to [facility] on 06/20 and discharged on 06/25. She was admitted for cystitis, found to be caused by E. coli, and is currently on Keflex. She also has a history of dementia and is on chronic anticoagulants. She was noted to have generalized weakness and required physical therapy. She was also found to have malnutrition and was admitted due to multiple falls at home. Michaela is currently using a catheter and reports that it is not like being normal. She also reports constant hemorrhoid pain and requests hemorrhoid cream. She denies any bleeding. She is currently taking Lexapro 20 mg and has a prescription for Celexa. She is also taking Lasix. Michaela's daughter is present and provides additional history. She reports that Michaela had a fall and slid off the toilet, but did not break anything. Michaela was denied transitional care by her insurance and stayed at [facility] for a couple of weeks, but did not receive much physical therapy. Michaela's daughter is hopeful that with physical therapy at home, Michaela will improve. Michaela has a home health aide from [facility] who helps with showers and getting Michaela up and moving. Mcihaela is also receiving physical therapy from [facility], who has evaluated her and will be coming back for follow-up. Michaela's daughter reports that Michaela was doing well before the second fall and is optimistic that with therapy, Michaela will improve. SOCIAL HISTORY[1] Past medical history, appointments, medications, allergies reviewed. Pertinent Lab/Diagnostic Studies are reviewed and discussed today Current Outpatient Medications: clonazePAM (KLONOPIN) 0.5 mg tablet sodium chloride 0.9 % IRRIGATION busPIRone (BUSPAR) 5 mg tablet citalopram (CELEXA) 20 mg tablet ascorbic acid (VITAMIN C ORAL) donepezil (ARICEPT) 10 mg tablet clonazePAM (KLONOPIN) 0.5 mg tablet levothyroxine (EUTHYROX) 50 mcg tablet traZODone (DESYREL) 50 mg tablet furosemide (LASIX) 20 mg tablet apixaban (ELIQUIS) 5 mg tab(s) Catheter (SELF-CATHETER, FEMALE) 14 Fr [facility] [place] Health Maintenance DTaP,Tdap,Td Vaccine(1 - Tdap) Bone Density Screening Shingrix Vaccine(2 of 3) Pneumococcal Vaccine: 50+(2 of 2 - PCV) Advance Directive Discussion Medicare Advantage Annual Wellness Visit@ Review Of Systems Gastrointestinal: (+) constipation, (+) rectal pain, (+) anal burning Genitourinary: (-) catheter-associated pain Psychiatric: (+) depressed mood Physical Exam BP 138/77 Pulse 72 Resp 16 Wt 54.6 kg (120 lb 6.4 oz) LMP (LMP Unknown) GENERAL: NAD, alert and oriented. SKIN: stage 2 pressure wounds, on the buttock, the wounds are oval, skin denuded and are HEAD: Normocephalic. EYES: PERRLA, EOMI, conjunctiva clear. EARS: External ears normal, canals clear, TM's normal. LUNGS: Clear to auscultation bilaterally, no wheezes/rhonchi/rales. HEART: Regular rate and rhythm, no murmurs. No ectopy. EXTREMITIES: Normal, no deformities, no skin discoloration, no edema. NEURO: Awake, alert and oriented x3, cranial nerves II-XII grossly intact, normal gait, no involuntary motions. RECTAL: No external hemorrhoids noted. Evidence of soft stool impaction on one side. No active bleeding observed. Labs: - Urine Culture: Escherichia coli detected - CBC: - WBC: 28,000 (elevated) - CPK: Elevated Assessment and Plan 1. Pressure injury of right buttock, stage 2 ([facility]) (L89.312) Stage 2 pressure injury of the right buttock with skin breakdown, likely due to prolonged sitting and limited mobility following recent falls and hospitalization. - Educated patient and family on importance of offloading pressure from affected area by alternating positions and minimizing time spent sitting. - Recommended use of zinc oxide for wound care. - Referred to wound care clinic for specialized management and instructions for home health nurse. - Home health nurse to assist with wound care. 2. Chronic indwelling Lizarraga catheter (Z97.8) Chronic indwelling Lizarraga catheter in place following recent hospitalization for E. coli cystitis; patient reports discomfort with catheter. - Home health nurse to provide catheter care. 3. Anxiety and depression (F41.9) Patient expresses sadness and frustration related to loss of independence and reliance on family for care. - Continue Lexapro 20 mg daily until current supply is finished, then transition to Celexa as previously prescribed. 4. Lymphocytosis (D72.820) 5. Leukocytosis, unspecified type (D72.829) Recent WBC count elevated at 28,000 during hospitalization for UTI; requires monitoring to ensure resolution and rule out other causes. - Order repeat CBC to monitor WBC count and ensure resolution of leukocytosis. 6. Acute heart failure, unspecified heart failure type ([facility]) (I50.9) History of acute heart failure; currently stable with no significant edema noted on exam. - Start Lasix twice weekly (Sunday and ) to manage fluid status. - Educated patient and family on signs of fluid overload and importance of adherence to medication regimen. 7. Recurrent falls (R29.6) Multiple recent falls at home, contributing to current functional decline and pressure injury. - Home health physical therapy initiated to improve strength and mobility. - Recommended use of a call cochran system to alert family for assistance and reduce fall risk. Voice recognition software was used to compose this office note. Please excuse any unintended typographical errors. Recording using ambient Syncing[employer]Net software for draft documentation of the visit was discussed with the patient/authorized customer field representative; all questions welcomed and answered. Patient/authorized customer field representative agreed to proceed Dillan Santiago MD [1] Social History Tobacco Use Smoking status: Never Smokeless tobacco: Never Vaping Use Vaping status: Never Used Substance Use Topics Alcohol use: Never Drug use: Never CBC W AUTO DIFF BLD Collected: 07/17/2025 12:41 PM S tatus: F Source: [facility] Order Comment: Specimen Type : BLOOD SPECIMEN Ordering Facility: [facility] Address: [address] [place] [address] TYPE CODE TESTS RESULT OUT OF RANGE REFERENCE UNITS LAB 6690-2(LOINC) WBC # Bld Auto 12.37 High 3.70-11.00 k/uL LAB 789-8(LOINC) RBC # Bld Auto 4.43 3.90-5.20 m/ uL LAB 718-7(LOINC) Hgb Bld-mCnc 13.3 11.5-15.5 g/dL LAB 4544-3(LOINC) Hct VFr Bld Auto 39.8 36.0-46.0 % LAB 787-2(LOINC) MCV RBC Auto 89.8 80.0-100.0 fL LAB 785-6(LOINC) MCH RBC Qn Auto 30.0 26.0-34.0 p g LAB 786-4(LOINC) MCHC RBC Auto-mCnc 33.4 30.5-36.0 g/dL LAB 05234-1(LOINC) RDW RBC-Rto 14.3 11.5-15.0 % LAB 777-3(LOINC) Platelet # Bld Auto 225 150-400 k/uL LAB 29871-7(LOINC) PMV Bld Auto 10.7 9.0-12.7 fL LAB 770-8(LOINC) Neutrophils/leuk NFr Bld Auto 80.1 % LAB 751-8(LOINC) Neutrophils # Bld Auto 9.91 High 1.45-7.50 k/uL LAB 736-9(LOINC) Lymphocytes/leuk NFr Bld Auto 11.4 % LAB 731-0(LOINC) Lymphocytes # Bld Auto 1.41 1.00-4.00 k/uL LAB 5905-5(LOINC) Monocytes/leuk NFr Bld Auto 5.8 % LAB 742-7(LOINC) Monocytes # Bld Auto 0.72 <0.87 k/uL LAB 713-8(LOINC) Eosinophil/leuk NFr Bld Auto 1.1 % LAB 711-2(LOINC) Eosinophil # Bld Auto 0.13 <0.46 k/uL LAB 706-2(LOINC) Basophils/leuk NFr Bld Auto 0.6 % LAB 704-7(LOINC) Basophils # Bld Auto 0.08 <0.11 k/uL LAB 92190-6(LOINC) Imm Granulocytes/kamille k NFr Bld Auto 1.0 % LAB 43761-0(LOINC) Imm Granulocytes # Bld Auto 0.12 High <0.10 k/uL LAB 40362-3(LOINC) nRBC/100 WBC Bld-Rto 0.0 /100 WBC LAB 771-6(LOINC) nRBC # Bld Auto <0.01 <0.01 k/u L LAB 88225-7(LOINC) Differential method Bld Auto Performed By: #### [id number] # ### [facility] CLIA [id number] [address] [place] [address] OF [facility] CNOV Observed: 07/17/2025 11:20 AM Status: COMPLETED Source: [facility] Office Visit (INTMWS) MICHAELA BRANDT ([id number]) 1940 F Date Time Provider Department 07/17/25 11:20 AM DILLAN SANTIAGO INTMWS During your visit today, we recorded the following information about you: Pulse Respiration Blood pressure Weight 72/minute 16/minute 138/77 54.6 kg Dillan Santiago MD 07/17/2025 12:28 PM Signed We discussed your recent hospitalization and current health concerns: - You were hospitalized from June 20 to June 25 for a urinary tract infection (UTI) caused by E. coli. You are currently taking Keflex (antibiotic) and should continue this as prescribed. - Your white blood cell count was elevated to 28,000 during your hospitalization. This is a significant finding, and we need to monitor it to ensure it is trending down. - You have a Lizarraga catheter in place. group home will assist with catheter care. We discussed your pressure sores and wound care: - You have stage 2 pressure sores on your buttocks. These require regular care to prevent worsening. - I am sending a referral to the wound care clinic at [facility]. Please call the clinic to schedule an appointment as soon as possible. - group home will assist with wound care, including cleaning and dressing the sores. - To help prevent further pressure sores, alternate your position frequently (e.g., lying on your side instead of sitting for prolonged periods). We discussed your bowel concerns: - You do not have hemorrhoids, but you have impacted stool on one side, which is causing discomfort and overflow diarrhea. - A home health nurse can administer an enema to help relieve the impacted stool. - Continue using flushable wipes to keep the area clean. We discussed your physical therapy and mobility: - You are experiencing generalized weakness and have had multiple falls. Physical therapy is essential to help you regain strength and improve mobility. - Your physical therapist, [facility], has already evaluated you. Please follow the therapy schedule they provide. - group home and your caregiver will assist with mobility and daily activities, such as getting up, moving around, and taking showers. We discussed your mood and medications: - You are currently taking Lexapro 20 mg daily. You may continue this until the supply is finished, then switch to Celexa as prescribed. - Lasix (a diuretic) will be prescribed to help manage any fluid retention. Take this twice a week (Sunday and ). This prescription will be sent to your [facility] pharmacy. We discussed additional recommendations: - Consider obtaining a call cochran or alert system to help you notify family members if you need assistance. - Focus on small, achievable goals to maintain some independence, such as eating or using the restroom on your own when possible. Next steps: - Continue taking Keflex as prescribed. - Schedule an appointment with the wound care clinic at [facility]. - Follow up with [facility] for catheter care, wound care, and enema administration. - Follow the physical therapy plan provided by [facility]. - Monitor for any swelling in your legs. If swelling worsens, weigh yourself or notify us. - Contact our office if you experience worsening symptoms, such as increased pain, fever, or changes in your condition. Your family and caregivers are doing a great job supporting you. Please let them assist you as needed, and remember that these steps are temporary to help you recover and regain strength. Dillan Santiago MD 07/17/2025 1:07 PM Signed Reason for Visit Follow up HPI Michaela Brandt is an 84-year-old female, with a history of dementia, presenting with multiple falls, cystitis, and pressure ulcers. Michaela was admitted to [facility] on 06/20 and discharged on 06/25. She was admitted for cystitis, found to be caused by E. coli, and is currently on Keflex. She also has a history of dementia and is on chronic anticoagulants. She was noted to have generalized weakness and required physical therapy. She was also found to have malnutrition and was admitted due to multiple falls at home. Michaela is currently using a catheter and reports that it is not like being normal. She also reports constant hemorrhoid pain and requests hemorrhoid cream. She denies any bleeding. She is currently taking Lexapro 20 mg and has a prescription for Celexa. She is also taking Lasix. Michaela's daughter is present and provides additional history. She reports that Michaela had a fall and slid off the toilet, but did not break anything. Michaela was denied transitional care by her insurance and stayed at [facility] for a couple of weeks, but did not receive much physical therapy. Michaela's daughter is hopeful that with physical therapy at home, Michaela will improve. Michaela has a home health aide from [facility] who helps with showers and getting Michaela up and moving. Michaela is also receiving physical therapy from [facility], who has evaluated her and will be coming back for follow-up. Michaela's daughter reports that Michaela was doing well before the second fall and is optimistic that with therapy, Michaela will improve. SOCIAL HISTORY[1] Past medical history, appointments, medications, allergies reviewed. Pertinent Lab/Diagnostic Studies are reviewed and discussed today Current Outpatient Medications: clonazePAM (KLONOPIN) 0.5 mg tablet sodium chloride 0.9 % IRRIGATION busPIRone (BUSPAR) 5 mg tablet citalopram (CELEXA) 20 mg tablet ascorbic acid (VITAMIN C ORAL) donepezil (ARICEPT) 10 mg tablet clonazePAM (KLONOPIN) 0.5 mg tablet levothyroxine (EUTHYROX) 50 mcg tablet traZODone (DESYREL) 50 mg tablet furosemide (LASIX) 20 mg tablet apixaban (ELIQUIS) 5 mg tab(s) Catheter (SELF-CATHETER, FEMALE) 14 Fr [facility] [place] Health Maintenance DTaP,Tdap,Td Vaccine(1 - Tdap) Bone Density Screening Shingrix Vaccine(2 of 3) Pneumococcal Vaccine: 50+(2 of 2 - PCV) Advance Directive Discussion Medicare Advantage Annual Wellness Visit@ Review Of Systems Gastrointestinal: (+) constipation, (+) rectal pain, (+) anal burning Genitourinary: (-) catheter-associated pain Psychiatric: (+) depressed mood Physical Exam BP 138/77 Pulse 72 Resp 16 Wt 54.6 kg (120 lb 6.4 oz) LMP (LMP Unknown) GENERAL: NAD, alert and oriented. SKIN: stage 2 pressure wounds, on the buttock, the wounds are oval, skin denuded and are HEAD: Normocephalic. EYES: PERRLA, EOMI, conjunctiva clear. EARS: External ears normal, canals clear, TM's normal. LUNGS: Clear to auscultation bilaterally, no wheezes/rhonchi/rales. HEART: Regular rate and rhythm, no murmurs. No ectopy. EXTREMITIES: Normal, no deformities, no skin discoloration, no edema. NEURO: Awake, alert and oriented x3, cranial nerves II-XII grossly intact, normal gait, no involuntary motions. RECTAL: No external hemorrhoids noted. Evidence of soft stool impaction on one side. No active bleeding observed. Labs: - Urine Culture: Escherichia coli detected - CBC: - WBC: 28,000 (elevated) - CPK: Elevated Assessment and Plan 1. Pressure injury of right buttock, stage 2 ([facility]) (L89.312) Stage 2 pressure injury of the right buttock with skin breakdown, likely due to prolonged sitting and limited mobility following recent falls and hospitalization. - Educated patient and family on importance of offloading pressure from affected area by alternating positions and minimizing time spent sitting. - Recommended use of zinc oxide for wound care. - Referred to wound care clinic for specialized management and instructions for home health nurse. - Home health nurse to assist with wound care. 2. Chronic indwelling Lizarraga catheter (Z97.8) Chronic indwelling Lizarraga catheter in place following recent hospitalization for E. coli cystitis; patient reports discomfort with catheter. - Home health nurse to provide catheter care. 3. Anxiety and depression (F41.9) Patient expresses sadness and frustration related to loss of independence and reliance on family for care. - Continue Lexapro 20 mg daily until current supply is finished, then transition to Celexa as previously prescribed. 4. Lymphocytosis (D72.820) 5. Leukocytosis, unspecified type (D72.829) Recent WBC count elevated at 28,000 during hospitalization for UTI; requires monitoring to ensure resolution and rule out other causes. - Order repeat CBC to monitor WBC count and ensure resolution of leukocytosis. 6. Acute heart failure, unspecified heart failure type (HCC) (I50.9) History of acute heart failure; currently stable with no significant edema noted on exam. - Start Lasix twice weekly (Sunday and ) to manage fluid status. - Educated patient and family on signs of fluid overload and importance of adherence to medication regimen. 7. Recurrent falls (R29.6) Multiple recent falls at home, contributing to current functional decline and pressure injury. - Home health physical therapy initiated to improve strength and mobility. - Recommended use of a call cochran system to alert family for assistance and reduce fall risk. Voice recognition software was used to compose this office note. Please excuse any unintended typographical errors. Recording using ambient Syncing[employer]Net software for draft documentation of the visit was discussed with the patient/authorized customer field representative; all questions welcomed and answered. Patient/authorized customer field representative agreed to proceed Dillan Santiago MD [1] Social History Tobacco Use Smoking status: Never Smokeless tobacco: Never Vaping Use Vaping status: Never Used Substance Use Topics Alcohol use: Never Drug use: Never Allergies As of Date: 07/17/2025 (No Known Allergies) Date Reviewed: 07/17/2025 Reviewed by: Haumesser, Mike L, MA - Fully Assessed Reason for Visit: F/U 3 Month [443] Primary Visit Diagnosis:Pressure injury of right buttock, stage 2 (HCC) [L89.312] Other Visit Diagnoses:Chronic indwelling Lizarraga catheter [Z97.8] Anxiety and depression [F41.9, F32.A] Lymphocytosis [D72.820] Acute heart failure, unspecified heart failure type (HCC) [I50.9] Leukocytosis, unspecified type [D72.829] Recurrent falls [R29.6] Order(s):traZODone (DESYREL) 50 mg tabletTake 1 tablet by mouth daily at bedtime.Disp: 90 tabletRfl: 3 CONSULT TO NON-[facility] FACILITY [7830317] Order #: [id number] CONSULT TO NON-[facility] FACILITY [1142409] Order #: [id number] CONSULT TO NON-[facility] FACILITY [4549022] Order #: [id number] COMPLETE BLOOD COUNT AND DIFFERENTIAL [SQCBCDIF] Order #: [id number] FUTURE COMPLETE BLOOD COUNT AND DIFFERENTIAL [SQCBCDIF] Order #: [id number] FUTURE furosemide (LASIX) 20 mg tabletPlease give her Sunday and in the morning. Or if her weight increases by 3 pounds on any given day, give one pill on that dayDisp: 30 tabletRfl: 3 PRIMARY CARE SOCIAL WORK CONSULT [7645993] Order #: [id number]: 1 Prescriptions as of 07/17/2025 - traZODone (DESYREL) 50 mg tablet Take 1 tablet by mouth daily at bedtime. - furosemide (LASIX) 20 mg tablet Please give her Sunday and in the morning. Or if her weight increases by 3 pounds on any given day, give one pill on that day - clonazePAM (KLONOPIN) 0.5 mg tablet Take 1 tablet by mouth three times a day as needed for anxiety for up to 30 days. - sodium chloride 0.9 % IRRIGATION Irrigate 60 mL as instructed once daily as needed. - apixaban (ELIQUIS) 5 mg tab(s) Take [...] once daily. 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 coli. You are currently taking Keflex (antibiotic) and should continue this as prescribed. - Your white blood cell count was elevated to 28,000 during your hospitalization. This is a significant finding, and we need to monitor it to ensure it is trending down. - You have a Lizarraga catheter in place. group home will assist with catheter care. We discussed your pressure sores and wound care: - You have stage 2 pressure sores on your buttocks. These require regular care to prevent worsening. - I am sending a referral to the wound care clinic at [facility]. Please call the clinic to schedule an appointment as soon as possible. - group home will assist with wound care, including cleaning and dressing the sores. - To help prevent further pressure sores, alternate your position frequently (e.g., lying on your side instead of sitting for prolonged periods). We discussed your bowel concerns: - You do not have hemorrhoids, but you have impacted stool on one side, which is causing discomfort and overflow diarrhea. - A home health nurse can administer an enema to help relieve the impacted stool. - Continue using flushable wipes to keep the area clean. We discussed your physical therapy and mobility: - You are experiencing generalized weakness and have had multiple falls. Physical therapy is essential to help you regain strength and improve mobility. - Your physical therapist, [facility], has already evaluated you. Please follow the therapy schedule they provide. - group home and your caregiver will assist with mobility and daily activities, such as getting up, moving around, and taking showers. We discussed your mood and medications: - You are currently taking Lexapro 20 mg daily. You may continue this until the supply is finished, then switch to Celexa as prescribed. - Lasix (a diuretic) will be prescribed to help manage any fluid retention. Take this twice a week (Sunday and ). This prescription will be sent to your [facility] pharmacy. We discussed additional recommendations: - Consider obtaining a call cochran or alert system to help you notify family members if you need assistance. - Focus on small, achievable goals to maintain some independence, such as eating or using the restroom on your own when possible. Next steps: - Continue taking Keflex as prescribed. - Schedule an appointment with the wound care clinic at [facility]. - Follow up with [facility] for catheter care, wound care, and enema administration. - Follow the physical therapy plan provided by [facility]. - Monitor for any swelling in your legs. If swelling worsens, weigh yourself or notify us. - Contact our office if you experience worsening symptoms, such as increased pain, fever, or changes in your condition. Your family and caregivers are doing a great job supporting you. Please let them assist you as needed, and remember that these steps are temporary to help you recover and regain strength. Prescriptions ordered this encounter Disp Refills Start End TRAZODONE 50 MG TABLET 90 t* 3 07/17/2025 Class: Med Update Route: PO Sig: Take 1 tablet by mouth daily at bedtime. Cosign accepted by DILLAN SANTIAGO[[id number]] on 07/17/2025 1:07 PM FUROSEMIDE 20 MG TABLET 30 t* 3 07/17/2025 07/17/2025 Class: Med Update Sig: Please give her Sunday and in the morning. Or if her weight increases by 3 pounds on any given day, give one pill on that day FUROSEMIDE 20 MG TABLET 30 t* 3 07/17/2025 Sig: Please give her Sunday and in the morning. Or if her weight increases by 3 pounds on any given day, give one pill on that day Medications Discontinued During This Encounter Prescriptions - furosemide (LASIX) 20 mg tablet (Discontinued) Please give her Sunday and in the morning. Or if her weight increases by 3 pounds on any given day, give one pill on that day - furosemide (LASIX) 20 mg tablet (Discontinued) Please give her Sunday and in the morning. Or if her weight increases by 3 pounds on any given day, give one pill on that day Level of Service: OFFICE/OUTPATIENT ESTABLISHED MOD [facility] 30 MIN [69246] Additional E/M codes: VISIT CPLX INHERENT EANDM ASSOC WITH MED * Encounter Status:Closed by DILLAN SANTIAGO on 07/17/25 MIK Observed: 07/17/2025 12:00 AM Status: COMPLETED Source: [facility] Telephone (MOODY) MICHAELA BRANDT ([id number]) 1940 F Date Time Provider Department 07/17/25 KENTRELL MONTGOMERY During your visit today, we recorded the following information about you: Kentrell Montgomery MSW 07/17/2025 3:31 PM Aleisha Guzman left message for return call in regards to medical alert button options for patient. Kentrell Montgomery MSW 07/21/2025 2:31 PM Signed Thomas spoke with patient daughter and she requests that SW either mail or My Chart the medical alert button options. Thomas will send medical alert button options to patient daughter. Sw and daughter also discussed [facility] and [facility] as other home pediatric acute care unit nurse options to compare prices to [facility]. Maribeth notes that she will compare prices of other home pediatric acute care unit nurse agencies. [facility] is coming out to see patient for PT and daughter is still waiting to hear when chcf from [facility] will be seeing patient. Allergies As of Date: 07/17/2025 (No Known Allergies) Date Reviewed: 07/17/2025 Reviewed by: Mike Guo MA - Fully Assessed Prescriptions as of 07/22/2025 - levothyroxine (EUTHYROX) 50 mcg tablet Take 1 tablet by mouth once daily. - traZODone (DESYREL) 50 mg tablet Take 1 tablet by mouth daily at bedtime. - furosemide (LASIX) 20 mg tablet Please give her Sunday and in the morning. Or if her weight increases by 3 pounds on any given day, give one pill on that day - clonazePAM (KLONOPIN) 0.5 mg tablet Take 1 tablet by mouth three times a day as needed for anxiety for up to 30 days. - sodium chloride 0.9 % IRRIGATION Irrigate 60 mL as instructed once daily as needed. 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 German is asking if provider would add an SN eval and Tx to the POC for catheter care and wound care. German reports patient has some fairly significant pressure ulcers to bilateral gluteus with no orders in place. Patient is scheduled to see provider on 07/17/2025 and HH would need wound care orders as well. German requests call back at [phone]. ZACHARIAH Vazquez Chitra, MD 07/16/2025 4:50 PM Signed Noted and agree Regards, Mike Oviedo MD, MA 07/16/2025 5:01 PM Signed Left message on secure [employer] with verbal ok. Mike Guo MA Allergies As of Date: 07/16/2025 (No Known Allergies) Date Reviewed: 07/14/2025 Reviewed by: Sirisha Pena LPN - Fully Assessed Reason for Visit: Patient Update [1234] Prescriptions as of 07/16/2025 - clonazePAM (KLONOPIN) 0.5 mg tablet Take [...] once daily. 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 Office Visit (PODIWS) MICHAELA BRANDT ([id number]) 1940 F Date Time Provider Department 07/14/25 10:00 AM DEANA KLEIN PODIWS During your visit today, we recorded the following information about you: Sirisha Pena LPN 07/14/2025 11:46 AM Signed AMB ROOMING INTAKE FLOWSHEET DATA Patient presents with: Left Foot - nail deformity , New, nail care Right Foot - New, nail deformity , nail care RAMIREZ Heredia Matthew 07/14/2025 11:46 AM Signed Consultation requested by Dr. Santiago for an opinion regarding nail care. My final recommendations will be communicated back to the requesting physician by way of shared Medical record or letter to requesting physician via US mail. Initial Podiatric Office Visit: Chief Complaint: This 84 year old female who presents with chief complaint:dystrophic toenails HPI Patient presents to clinic with complaint of dystrophic toenails. The toenails do not cause pain but are very difficult to trim. She has no other podiatric complaints. PAIN EVALUATION No data found in the last 1 encounters. Hemoglobin A1C (%) Date Value 05/06/2025 4.2 PCP: Dillan Santiago MD PAST MEDICAL HISTORY Diagnosis Date Anxiety Depression Hypothyroidism Neurogenic bladder Thyroid disease Current Outpatient Medications Medication Sig clonazePAM (KLONOPIN) 0.5 mg tablet Take 1 tablet by mouth three times a day as needed for anxiety for up to 30 days. sodium chloride 0.9 % IRRIGATION Irrigate 60 mL as instructed once daily as needed. furosemide (LASIX) 20 mg tablet Please give her Sunday and in the morning. Or if her weight increases by 3 pounds on any given day, give one pill on that day apixaban (ELIQUIS) 5 mg tab(s) Take 1 tablet by mouth two times a day. busPIRone (BUSPAR) 5 mg tablet Take 1 tablet by mouth two times a day. citalopram (CELEXA) 20 mg tablet Take 1 tablet by mouth once daily. ascorbic acid (VITAMIN C ORAL) Take by [...] Take 1 tablet by mouth once daily. No current facility-administered medications for this visit. ALLERGIES No Known Allergies PAST SURGICAL HISTORY Procedure Laterality Date HYSTERECTOMY HX SPINE SURGERY HX TOOTH EXTRACTION Wears upper and lower dentures FAMILY HISTORY Problem Relation Age of Onset Diabetes Mother Coronary Artery Disease Mother Hypertension Mother Prostate Cancer Father Breast Cancer Sister Hypertension Sister Hypertension Maternal Grandmother No Known Problems Maternal Grandfather No Known Problems Paternal Grandmother No Known Problems Paternal Grandfather Leukemia Daughter Hypertension Daughter Thyroid Daughter SOCIAL HISTORY[1] REVIEW OF SYSTEMS GENERAL: Negative for Malaise, significant weight loss, fever RESPIRATORY: Negative for cough, wheezing and shortness of breath CARDIOVASCULAR: Negative for chest pain, leg swelling and palpitations GI: Negative for abdominal discomfort, blood in stools or black stools and change in bowel habits : Negative for dysuria, frequency and incontinence MUSCULOSKELETAL: Negative for joint pain or swelling, back pain, and muscle pain. SKIN: Negative for lesions, rash, and itching. HEMATOLOGY/LYMPHOLOGY Negative for prolonged bleeding, bruising easily, and swollen nodes. ENDOCRINE: Negative for cold or heat intolerance, polyuria, polydipsia and goiter. NEURO: negative Physical Exam: Constitutional: Pt is a well developed 84 year old female who is alert, oriented and cooperative Eyes: Following during examination. No redness or drainage. Respiratory: RR normal and nonlabored. Even breathing. No evidence of distress or shortness of breath. Psychology: Patient is engaged during conversation. Normal affect and mood. Does not appear depressed or anxious during encounter. Vascular: Dorsalis pedis and posterior tibial pulses nonpalpable b/l Capillary Fill time < 5 seconds to digits 1-5 b/l Skin temperature warm to leave coordinator proximal to distal b/l Hair growth absent to digits Dependant pallor is noted. Neurological: intact light touch/epicritic sensation Vibratory sensation decreased b/l decreased protective sensation + significant neurological deficits Dermatological: Nails 1-5 b/l appear elongated, dystrophic. Webspaces clean and dry 1-4 b/l. Skin appears well hydrated and supple. good color, texture, turgor. No open lesions present. No callosities present. Radiographs: n/a ASSESSMENT: (B35.1) Onychomycosis PAD PLAN: Discussd dystrophic toenails. Discussed options for dystrophic toenails not limited to topical medication, oral medication, periodic debridement vs removal. This patient elected for debridement Discussed criteria for nail care. On exam, this patient demonstrates absent dp and absent PT pulses with temperature and color changes and nail changes. She qualifies for boone care based on q8 modifier. Deana Klein DPM Podiatry [address] [facility] [address] Dept: [phone] Dept [1] Social History Tobacco Use Smoking status: Never Smokeless tobacco: Never Vaping Use Vaping status: Never Used Substance Use Topics Alcohol use: Never Drug use: Never Referring Provider: DILLAN SANTIAGO [[id number]] Allergies As of Date: 07/14/2025 (No Known Allergies) Date Reviewed: 07/14/2025 Reviewed by: Sirisha Pena LPN - Fully Assessed Reason for Visit: nail deformity [Other] New [004302] nail care [Other] New [010525] nail deformity [Other] nail care [Other] Visit Diagnosis:Onychomycosis [B35.1] Order(s):CONSULT TO PODIATRY [9034] Order #: [id number]: 1 Prescriptions as of 07/14/2025 - clonazePAM (KLONOPIN) 0.5 mg tablet Take [...] once daily. 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 Service: ? Author Type: Physician Type: Progress Notes Filed: 07/14/2025 11:46 Note Text: Consultation requested by Dr. Santiago for an opinion regarding nail care. My final recommendations will be communicated back to the requesting physician by way of shared Medical record or letter to requesting physician via US mail. Initial Podiatric Office Visit: Chief Complaint: This 84 year old female who presents with chief complaint:dystrophic toenails HPI Patient presents to clinic with complaint of dystrophic toenails. The toenails do not cause pain but are very difficult to trim. She has no other podiatric complaints. PAIN EVALUATION No data found in the last 1 encounters. Hemoglobin A1C (%) Date Value 05/06/2025 4.2 PCP: Dillan Santiago MD PAST MEDICAL HISTORY Diagnosis Date Anxiety Depression Hypothyroidism Neurogenic bladder Thyroid disease Current Outpatient Medications Medication Sig clonazePAM (KLONOPIN) 0.5 mg tablet Take 1 tablet by mouth three times a day as needed for anxiety for up to 30 days. sodium chloride 0.9 % IRRIGATION Irrigate 60 mL as instructed once daily as needed. furosemide (LASIX) 20 mg tablet Please give her Sunday and in the morning. Or if her weight increases by 3 pounds on any given day, give one pill on that day apixaban (ELIQUIS) 5 mg tab(s) Take 1 tablet by mouth two times a day. busPIRone (BUSPAR) 5 mg tablet Take 1 tablet by mouth two times a day. citalopram (CELEXA) 20 mg tablet Take 1 tablet by mouth once daily. ascorbic acid (VITAMIN C ORAL) Take by [...] Take 1 tablet by mouth once daily. No current facility-administered medications for this visit. ALLERGIES No Known Allergies PAST SURGICAL HISTORY Procedure Laterality Date HYSTERECTOMY HX SPINE SURGERY HX TOOTH EXTRACTION Wears upper and lower dentures FAMILY HISTORY Problem Relation Age of Onset Diabetes Mother Coronary Artery Disease Mother Hypertension Mother Prostate Cancer Father Breast Cancer Sister Hypertension Sister Hypertension Maternal Grandmother No Known Problems Maternal Grandfather No Known Problems Paternal Grandmother No Known Problems Paternal Grandfather Leukemia Daughter Hypertension Daughter Thyroid Daughter SOCIAL HISTORY[1] REVIEW OF SYSTEMS GENERAL: Negative for Malaise, significant weight loss, fever RESPIRATORY: Negative for cough, wheezing and shortness of breath CARDIOVASCULAR: Negative for chest pain, leg swelling and palpitations GI: Negative for abdominal discomfort, blood in stools or black stools and change in bowel habits : Negative for dysuria, frequency and incontinence MUSCULOSKELETAL: Negative for joint pain or swelling, back pain, and muscle pain. SKIN: Negative for lesions, rash, and itching. HEMATOLOGY/LYMPHOLOGY Negative for prolonged bleeding, bruising easily, and swollen nodes. ENDOCRINE: Negative for cold or heat intolerance, polyuria, polydipsia and goiter. NEURO: negative Physical Exam: Constitutional: Pt is a well developed 84 year old female who is alert, oriented and cooperative Eyes: Following during examination. No redness or drainage. Respiratory: RR normal and nonlabored. Even breathing. No evidence of distress or shortness of breath. Psychology: Patient is engaged during conversation. Normal affect and mood. Does not appear depressed or anxious during encounter. Vascular: Dorsalis pedis and posterior tibial pulses nonpalpable b/l Capillary Fill time < 5 seconds to digits 1-5 b/l Skin temperature warm to leave coordinator proximal to distal b/l Hair growth absent to digits Dependant pallor is noted. Neurological: intact light touch/epicritic sensation Vibratory sensation decreased b/l decreased protective sensation + significant neurological deficits Dermatological: Nails 1-5 b/l appear elongated, dystrophic. Webspaces clean and dry 1-4 b/l. Skin appears well hydrated and supple. good color, texture, turgor. No open lesions present. No callosities present. Radiographs: n/a ASSESSMENT: (B35.1) Onychomycosis PAD PLAN: Discussd dystrophic toenails. Discussed options for dystrophic toenails not limited to topical medication, oral medication, periodic debridement vs removal. This patient elected for debridement Discussed criteria for nail care. On exam, this patient demonstrates absent dp and absent PT pulses with temperature and color changes and nail changes. She qualifies for boone care based on q8 modifier. Deana Klein DPM Podiatry [address] [facility] [address] Dept: [phone] Dept [1] Social History Tobacco Use Smoking status: Never Smokeless tobacco: Never Vaping Use Vaping status: Never Used Substance Use Topics Alcohol use: Never Drug use: Never PROGRESS Observed: 07/14/2025 9:51 AM Status: COMPLETED Source: [facility] HNO ID: [id number] Author: SIRISHA PENA LPN Service: ? Author Type: Licensed Nurse Type: Progress Notes Filed: 07/14/2025 11:46 Note Text: AMB ROOMING INTAKE FLOWSHEET DATA Patient presents with: Left Foot - nail deformity , New, nail care Right Foot - New, nail deformity , nail care Sirisha Pena LPN CNPN Observed: 07/13/2025 12:00 AM Status: COMPLETED Source: [facility] Telephone (INTMWS) REXMICHELLETraMICHAELA DORMAN ([id number]) 1940 F Date Time Provider Department 07/13/25 DILLAN SANTIAGO INTMichaelleWS During your visit today, we recorded the following information about you: Porsha Vasquez RN 07/13/2025 4:34 PM Signed Berta with [facility] calling and asking if provider is agreeable to signing and following patient for PT, OT and ST orders? Berta states patient was discharged from [facility]. Had UTI, weakness. Please call Berta back at [phone]. ZACHARIAH Mckinney Chitra, MD 07/13/2025 5:06 PM Signed Yes will follow, Regards, Mike Oviedo MD, MA 07/14/2025 8:29 AM Signed Left detailed message on identified VM. Mike Guo MA Allergies As of Date: 07/13/2025 (No Known Allergies) Date Reviewed: 06/03/2025 Reviewed by: Mike Guo MA - Fully Assessed Reason for Visit: Home Health Orders [Other] Prescriptions as of 07/14/2025 - clonazePAM (KLONOPIN) 0.5 mg tablet Take [...] once daily. 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] 06/03/2025 Encounter Status:Closed by MIKE GUO on 07/14/25 CNPN Observed: 06/17/2025 12:00 AM Status: COMPLETED Source: [facility] Telephone (INTMWS) MICHAELA BRANDT ([id number]) 1940 F Date Time Provider Department 06/17/25 DILLAN SANTIAGO INTMWS During your visit today, we recorded the following information about you: Gabi Mcelroy RN 06/17/2025 5:02 PM Signed Brissa from [facility] called in to let provider know [...] 06/18/2025 1:35 PM Signed Noted and agree Dillan Patel MD, Amanda, RN 06/18/2025 1:43 PM Signed Called and left a detailed voicemail notifying Brissa from [facility] of providers message. Clinic phone number was left in case she had any questions. 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 Author [...] a month ago, which was treated at [facility]. Michaela expresses reluctance to continue self-catheterization due to the risk of introducing infections and is considering a suprapubic catheter as an alternative. Michaela has not yet undergone an echocardiogram that was previously scheduled. She expresses a desire to reschedule the appointment. Michaela is also experiencing issues with thickened toenails, which are causing discomfort when wearing shoes. She has an appointment with a glass engraver next month for evaluation and treatment. Michaela [...] Michaela's daughter, who currently holds power of commercial attorney, is trying to prevent this. Michaela [...] of recurrent UTIs, most recently treated at [facility]. Currently self-catheterizing four times daily, which [...] excuse any unintended typographical errors. Recording using [employer] software for draft documentation of the visit was discussed with the patient/authorized customer field representative; all questions welcomed and answered. Patient/authorized customer field representative agreed to proceed Spent more than 40 mins face to face with patient Dillan Santiago MD CNOV Observed: 06/03/2025 11:00 AM Status: COMPLETED Source: [facility] Office Visit (GERIWR) MICHAELA BRANDT ([id number]) 1940 F Date Time Provider Department 06/03/25 [...] This condition requires specialized care from a glass engraver, as regular nail trimming is not sufficient. - You already have an appointment scheduled with podiatry in June. At that visit, they will assess your nails and provide appropriate treatment. - I documented the findings in your chart to ensure the glass engraver is aware of the condition and can [...] a month ago, which was treated at [facility]. Michaela expresses reluctance to continue self-catheterization due to the risk of introducing infections and is considering a suprapubic catheter as an alternative. Michaela has not yet undergone an echocardiogram that was previously scheduled. She expresses a desire to reschedule the appointment. Michaela is also experiencing issues with thickened toenails, which are causing discomfort when wearing shoes. She has an appointment with a glass engraver next month for evaluation and treatment. Michaela [...] Michaela's daughter, who currently holds power of commercial attorney, is trying to prevent this. Michaela [...] of recurrent UTIs, most recently treated at [facility]. Currently self-catheterizing four times daily, which [...] excuse any unintended typographical errors. Recording using [employer] software for draft documentation of the visit was discussed with the patient/authorized customer field representative; all questions welcomed and answered. 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) [G30.1, F02.B18] Anxiety and depression [F41.9, F32.A] Acute heart failure, unspecified heart failure type (HCC) [I50.9] Self-catheterizes urinary bladder [Z78.9] Urinary retention [R33.9] Onychomycosis [B35.1] Thickened nail [L60.2] Acquired deformity of toe, unspecified laterality [M20.60] IGTN (ingrowing toe nail) [L60.0] Order(s):clonazePAM (KLONOPIN) 0.5 mg tabletTake 1 tablet by mouth three times a day as needed for anxiety for up to 30 days.Disp: 45 tabletRfl: 0 CONSULT TO UROLOGY [9098] Order #: [id number]: 1 FUTURE Prescriptions as of 06/03/2025 - clonazePAM (KLONOPIN) 0.5 mg tablet Take [...] once daily. 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 - You already have an appointment scheduled with podiatry in June. At that visit, they will assess your nails and provide appropriate treatment. - I documented the findings in your chart to ensure the glass engraver is aware of the condition and can [...] questions or concerns, please contact our office. Prescriptions ordered this encounter Disp Refills Start End CLONAZEPAM 0.5 MG TABLET 45 t* 0 06/03/2025 07/03/2025 Route: PO Sig: Take 1 tablet by mouth three times a day as needed for anxiety for up to 30 days. Medications Discontinued During This Encounter Prescriptions - clonazePAM (KLONOPIN) 0.5 mg tablet (Discontinued) Take 1 tablet by mouth three times a day as needed for anxiety for up to 30 days. Level of Service: OFFICE/OUTPATIENT ESTABLISHED [facility] 40 MIN [14631] Additional E/M codes: VISIT CPLX INHERENT EANDM ASSOC WITH MED * LOS History for Encounter Level of Service: OFFICE/OUTPATIENT ESTABLISHED [facility] 30 MIN[25125] Date AND Time: 06-03-2025 12:28 PM Recorded by User: DILLAN SANTIAGO Letter Text Encounter Status:Closed by DILLAN SANTIAGO on 06/03/25 CNPN Observed: 05/20/2025 12:00 AM Status: COMPLETED Source: [facility] Telephone (INTMWS) MICHAELA BRANDT ([id number]) 1940 F Date Time Provider Department 05/20/25 DILLAN SANTIAGO INTMWS During your visit today, we recorded the following information about you: Jagruti Veliz 05/20/2025 10:53 AM Signed Patient's daughter dropped off forms that need filled out and faxed to TOBIAS Wolf, att [phone]. Forms given to nurse. Please assist. Mike Guo MA 05/20/2025 5:03 PM Signed Forms given to PCP for review/signature. EVON Rouse Brittany L, MA 05/26/2025 11:29 AM Signed Forms completed and faxed back to # provided: [phone]. Mike Guo MA Allergies As of Date: [...] unstageable (*04/17/2025 DELMY (dementia of Alzheimer type) ([facility]) [G30.9, *04/17/2025 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] 04/17/2025 Closed fracture of left hip ([facility]) [S72.002A] 04/17/2025 Balance disorder [R26.89] 04/17/2025 Weakness of both lower extremities [R29.898] 04/17/2025 Encounter Status:Closed by MIKE GUO on 05/26/25 MIK Observed: 05/07/2025 12:00 AM Status: COMPLETED Source: [facility] Telephone (INTMWS) MICHAELA BRANDT ([id number]) 1940 F Date Time Provider Department 05/07/25 DILLAN SANTIAGO INTMWS During your visit today, we recorded the following information about you: Michaelle Tai, ZACHARIAH 05/07/2025 11:16 AM [facility] pt has fine crackles in the bases of her lungs again. Reports patient denies Shortness of Breath, and the swelling has decreased. No fever. Otherwise, besides pt's anxiety she feels great. Asking if pcp wants to order a CXR? If pcp wants to order a CXR please fax order to Jose M Zheng at fax # [phone] Please advise and phone Ivis with reply: [phone] Dillan Santiago MD 05/11/2025 5:08 PM Signed [...] unstageable (*04/17/2025 DELMY (dementia of Alzheimer type) ([facility]) [G30.9, *04/17/2025 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] 04/17/2025 Closed fracture of left hip ([facility]) [S72.002A] 04/17/2025 Balance disorder [R26.89] 04/17/2025 Weakness of both lower extremities [R29.898] 04/17/2025 Encounter Status:Closed by Michaelle TAI on 05/12/25 DEPRECATED HGB A1C BLD Collected: 05/06 12:38 PM Status: F Source: [facility] Comment: Specimen Type : BLOOD SPECIMEN Ordering Facility: [facility] Address: [address] [place] [address] TYPE CODE TESTS RESULT OUT OF RANGE REFERENCE UNITS LAB 4548-4(LOINC) HbA1c MFr Bld 4.2 Low 4.3-5.6 % Result Comment: [place] Daphnie betes Association guidelines indicate that patients with HgbA1c in the range 5.7-6.4% are at increased risk for development of diabetes, and intervention by lifestyle modification may be beneficial. HgbA1c greater or equal to 6.5% is considered diagnostic of diabetes. LAB 33291-7([facility]) Est. average glucose Bld gHb Est-mCnc 74 mg/dL Result Comment: eAG: (Estima renny average glucose) is a calculated value from HgbA1c and is customer field representative of the average blood glucose level in the last 2-3 month period. Performed By: #### 33276-1 # ### [facility] CLIA [id number] [address] [place] [address] [place] COMP METAB 2000 PNL SERPL Collected: 12:38 PM Status: F Source: [facility] Comment: Specimen Type : BLOOD SPECIMEN Ordering Facility: [facility] Address: [address] [place] [address] TYPE CODE TESTS RESULT OUT OF RANGE REFERENCE UNITS LAB 2885-2(LOINC) Prot SerPl-mCnc 6.6 6.3-8.0 g/dL LAB 1751-7(LOINC) Albumin SerPl-mCnc 3.8 Low 3.9-4.9 g/dL LAB 56632-0(LOINC) Calcium SerPl-mCnc 9.2 8.5-10.2 mg/dL LAB 1975-2(LOINC) Bilirub SerPl-mCnc 0.7 0.2-1.3 mg/dL LAB 6768-6(LOINC) ALP SerPl-cCnc 100 34-123 U/L LAB 1920-8(LOINC) AST SerPl-cCnc 17 13-35 U/L LAB 1742-6(LOINC) ALT SerPl-cCnc 9 7-38 U/L LAB 2345-7(LOINC) Glucose SerPl-mCnc 93 74-99 mg/dL Result Comment: The [place] Diabetes Association (ADA) provides guidance for cutoff [...] Standards of Medical Care in Diabetes 2016, [place] Diabetes Association. Diabetes Care. 2016.39(Suppl 1). LAB 3094-0(LOINC) BUN SerPl-mCnc 14 7-21 mg/ dL LAB 2160-0(LOINC) Creat SerPl-mCnc 0.70 0.58-0.96 mg/dL LAB 2951-2(LOINC) Sodium SerPl-sCnc 139 136-144 mmol/L LAB 2823-3(LOINC) Potassium SerPl-sCnc 4.0 3.7-5.1 mmol/L LAB 2075-0(LOINC) Chloride SerPl-sCnc 104 98-107 mmol/L LAB 2028-9(LOINC) CO2 SerPl-sCnc 24 22-30 mmo l/L LAB 24604-6(LOINC) Anion Gap SerPl-sCnc 11 8-15 mmol/L LAB 79429-4(LOINC) Creatinine + eGFR Pnl SerPlBld 85 >=60 mL/min/1 .73m??? Result Comment: Estimated Gl omerular Filtration Rate (eGFR) is calculated using the 2020 CKD-EPI creatinine equation. This equation utilizes serum creatinine, sex, and age as parameters. The creatinine assay has traceable calibration to isotope dilution-mass spectrometry. Refer to KDIGO guidelines for clinical interpretation. In patients with unstable renal function, e.g. those with acute kidney injury, the eGFR may not accurately reflect actual GFR. Performed By: #### 83466-6, 20205-4 #### [facility] CLIA [id number] [address] [place] [address] [place] NT-PROBNP SERPL-MCNC Collected: 12:38 PM Status: F Source: [facility] Order Comment: Specimen Type : BLOOD SPECIMEN Ordering Facility: [facility] Address: [address] [place] [address] TYPE CODE TESTS RESULT OUT OF RANGE REFERENCE UNITS LAB 39142-9(LOINC) NT-proBNP SerPl-mCnc 113 <450 pg/mL Performed By: #### 55174-7, 48212-3 #### [facility] CLIA [id number] [address] [place] [address] [place] CNOV Observed: 05/06/2025 11:30 AM Status: COMPLETED Source: [facility] Office Visit (GERIWR) MICHAELA BRANDT ([id number]) 1940 F Date Time Provider Department 05/06/25 [...] is currently receiving home care services, including chcf, physical therapy, and occupational therapy. She has aides assisting her from [phone] and 5975-2676 daily. Due to financial constraints, the family [...] mg tablet Catheter (SELF-CATHETER, FEMALE) 14 Fr [facility] Health Maintenance DTaP,Tdap,Td Vaccine(1 - [...] of 6 months. - Prescription sent to [facility] pharmacy for 3 months supply. 5. Edema, [...] excuse any unintended typographical errors. Recording using [employer] software for draft documentation of the visit was discussed with the patient/authorized customer field representative; all questions welcomed and answered. Patient/authorized customer field representative agreed to proceed Dillan Santiago MD Allergies As of Date: 05/06/2025 (No Known Allergies) Date Reviewed: 05/06/2025 Reviewed by: Stefanie Schaffer LPN - Fully Assessed Reason for Visit: F/U 3 Month [443] Primary Visit Diagnosis:Acute heart failure, unspecified heart failure type (HCC) [I50.9] Other Visit Diagnoses:Prediabetes [R73.03] Urinary retention [R33.9] Acute deep vein thrombosis (DVT) of calf muscle vein of left lower extremity (HCC) [I82.462] Edema, unspecified type [R60.9] Self-catheterizes urinary bladder [Z78.9] Weakness of both lower extremities [R29.898] 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 Or if her weight increases by 3 pounds on any given day, give one pill on that dayDisp: 30 tabletRfl: 3 ECHO [398621] Order #: [id number]: 1 FUTURE NT PRO BNP [SQNTBNP] Order #: [id number] FUTURE HEMOGLOBIN A1C [ICZBU2W] Order #: [id number] FUTURE COMPREHENSIVE METABOLIC PANEL [SQCMP] Order #: [id number] FUTURE apixaban (ELIQUIS) 5 mg tab(s)Take 1 tablet by mouth two times a day.Disp: 60 tabletRfl: 2 Prescriptions as of 05/06/2025 - sodium chloride 0.9 % IRRIGATION Irrigate [...] unstageable (*04/17/2025 DELMY (dementia of Alzheimer type) ([facility]) [G30.9, *04/17/2025 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] 04/17/2025 Closed fracture of left hip ([facility]) [S72.002A] 04/17/2025 Balance disorder [R26.89] 04/17/2025 Weakness of both lower extremities [R29.898] 04/17/2025 Prescriptions ordered this encounter Disp Refills Start End FUROSEMIDE 20 MG TABLET 30 t* 3 05/06/2025 Class: Print RX Sig: Please give her Sunday and in the morning. Or if her weight increases by 3 pounds on any given day, give one pill on that day APIXABAN 5 MG TABLET 60 t* 2 05/06/2025 08/04/2025 Route: PO Sig: Take 1 tablet by mouth two times a day. Medications Discontinued During This Encounter Prescriptions - apixaban (ELIQUIS) 5 mg tab(s) (Discontinued) Take 5 mg by mouth two times a day. Level of Service: OFFICE/OUTPATIENT ESTABLISHED MOD MDM 30 MIN [02250] Additional E/M codes: VISIT CPLX INHERENT EANDM ASSOC WITH MED * Encounter Status:Closed by DILLAN SANTIAGO on 05/06/25 PROGRESS Observed: 05/06/2025 11:24 AM Status: COMPLETED Source: [facility] HN ID: [id number] Author: DILLAN SANTIAGO MD Service: ? Author [...] is currently receiving home care services, including chcf, physical therapy, and occupational therapy. She has aides assisting her from [phone] and [phone] daily. Due to financial constraints, the family [...] mg tablet Catheter (SELF-CATHETER, FEMALE) 14 Fr [facility] Health Maintenance DTaP,Tdap,Td Vaccine(1 - [...] of 6 months. - Prescription sent to [facility] pharmacy for 3 months supply. 5. Edema, [...] excuse any unintended typographical errors. Recording using [employer] software for draft documentation of the visit was discussed with the patient/authorized customer field representative; all questions welcomed and answered. Patient/authorized customer field representative agreed to proceed Dillan Santiago MD [facility] Observed: 05/06/2025 12:00 AM Status: COMPLETED Source: [facility] Telephone (INTMWS) REXMICHELLETraMICHAELA DORMAN ([id number]) 1940 F Date Time Provider Department 05/06/25 [...] Signed I started her on buspar. Regards, Miek Oviedo MD, MA 05/07/2025 2:33 PM Signed [...] unstageable (*04/17/2025 DELMY (dementia of Alzheimer type) ([facility]) [G30.9, *04/17/2025 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] 04/17/2025 Closed fracture of left hip (HCC) [S72.002A] 04/17/2025 Balance disorder [R26.89] 04/17/2025 Weakness of both lower extremities [R29.898] 04/17/2025 Prescriptions ordered this encounter Disp Refills Start End BUSPIRONE 5 MG TABLET 60 t* 3 05/06/2025 Route: PO Sig: Take 1 tablet by mouth two times a day. Encounter Status:Closed by MIKE GUO on 05/07/25 MIK Observed: 05/04/2025 12:00 AM Status: COMPLETED Source: [facility] MICHAELA BRANDT ([id number]) 1940 F Date Time Provider Department 05/04/25 DILLAN SANTIAGO [facility] During your visit today, we recorded the following information about you: Nisha Clayton LPN 05/04/2025 8:50 AM Signed Brittni with [facility] calls in regards to TE from 04/24: Solange Craig RN MG 04/24/25 11:13 AM Note Brissa from [facility] is calling due to she saw [...] unstageable (*04/17/2025 DELMY (dementia of Alzheimer type) ([facility]) [G30.9, *04/17/2025 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] 04/17/2025 Closed fracture of left hip ([facility]) [S72.002A] 04/17/2025 Balance disorder [R26.89] 04/17/2025 Weakness of both lower extremities [R29.898] 04/17/2025 Encounter Status:Closed by PAMELA POWER on 05/04/25 MIK Observed: 04/27/2025 12:00 AM Status: COMPLETED Source: [facility] Telephone (UROLWS) MICHAELA BRANDT ([id number]) 1940 F Date Time Provider Department 04/27/25 [...] and placement of orders. Please fax to [facility] [phone]. JAIRON notes faxed through [employer]. EVON Miller Courtney, ZACHARIAH 04/27/2025 4:19 PM Signed JAIRON 12/23/24 Nusrat Crespo LPN 05/04/2025 9:05 AM Signed Tom Baltazar PA-C You3 days ago Yea I though Silas was doing this VADIM Stanford, MT, NASIR You Tom Baltazar PA-C5 days ago [...] 10:03 AM Signed Tom Baltazar PA-C You; [facility] Urology Pool; Desi Bergman, ZACHARIAH1 hour ago (8:44 AM) Please write orders and fax to [place] today id needed [place] [facility] not [facility] VADIM Stanford MT, PA-C Orders pended. Please [...] Signed Orders, urology office notes faxed to [facility]. RAMIREZ Valdes Kimberly, LPN 05/06/2025 3:50 PM Signed Called [facility], phone number for Savanah. Informed orders/office notes for urology in 12/23/2024 faxed. Awaiting lizarraga cathter size from provider. RAMIREZ Valdes Kimberly, LPN 05/07/2025 12:50 PM Signed Tom Baltazar PA-C You18 hours ago (5:52 PM) I am not the provider who has pt under home health care, that provider should be ordering the lizarraga exchanges and supplies needed. VADIM Stanford MT, PA-C Called Savanah with [facility] on secured line- no answer. Left message from Tom. Nusrat Crespo LPN Allergies As of Date: 04/27/2025 (No Known Allergies) Date Reviewed: 04/17/2025 Reviewed by: Mike Guo MA - Fully Assessed Reason for Visit: Orders [681] Cmt: Self catheter Primary Visit Diagnosis:Urine retention [R33.9] Order(s):CATHETER INSERT-LIZARRAGA [[id number]] Order #: [id number] STANDING BEDSIDE DRAINAGE BAG [[id number]] Order #: [id number] STANDING sodium chloride 0.9 % IRRIGATIONIrrigate 60 mL as instructed once daily as needed.Disp: 1999 mLRfl: 3 BEDSIDE DRAINAGE BAG [[id number]] Order #: [id number] Prescriptions as of 05/07/2025 - sodium chloride [...] unstageable (*04/17/2025 DELMY (dementia of Alzheimer type) ([facility]) [G30.9, *04/17/2025 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 Encounter Status:Closed by OPHELIA ANSARI on 05/05/25 MIK Observed: 04/24/2025 12:00 AM Status: COMPLETED Source: [facility] Telephone (HouseTripWS) MICHAELA BRANDT ([id number]) 1940 F Date Time Provider Department 04/24/25 DILLAN SANTIAGO During your visit today, we recorded the following information about you: Solange Craig, ZACHARIAH 04/24/2025 11:13 AM Signed Brissa from [facility] is calling due to she saw [...] be out, was replaced today. Daughter reports staff heard fluid in pt's lungs. With this call, along with previous note requesting imaging and blood work, and pt's Full Code status, this nurse advised ER based on all sx's. Daughter agreeable. ZACHARIAH Mckinney Amanda, RN 04/24/2025 4:13 PM Signed Pts daughter called in and was asking about if she should take her mother to [facility] ER or a [facility] ER. She states since she is affiliated with [facility] would it be in her best interest to just go to the [facility]. I told her that is up to her, but the closest one would be [place], [facility], or [place]. She said if they went to [facility] they could always get her transfer [...] unstageable (*04/17/2025 DELMY (dementia of Alzheimer type) ([facility]) [G30.9, *04/17/2025 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] 04/17/2025 Closed fracture of left hip (HCC) [S72.002A] 04/17/2025 Balance disorder [R26.89] 04/17/2025 Weakness of both lower extremities [R29.898] 04/17/2025 Encounter Status:Closed by SOLANGE CRAIG on 04/28/25 MIK Observed: 04/21/2025 12:00 AM Status: COMPLETED Source: [facility] MICHAELA BRAND[facility] ([id number]) 1940 F Date Time Provider Department 04/21/25 DILLAN SANTIAGO [facility] During your visit today, we [...] we can give her a little lasix. 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] 04/17/2025 Closed fracture of left hip ([facility]) [S72.002A] 04/17/2025 Balance disorder [R26.89] 04/17/2025 Weakness of both lower extremities [R29.898] 04/17/2025 Encounter Status:Closed by MCKENZIE LOMBARDO on 04/22/25 MIK Observed: 04/20/2025 12:00 AM Status: COMPLETED Source: [facility] Telephone (INTMWS) MICHAELA BRANDT ([id number]) 1940 F Date Time Provider Department 04/20/25 DILLAN SANTIAGO During your visit today, we recorded the following information about you: Gabi Mcelroy, RN 04/20/2025 3:09 PM Signed My CAO with [facility] called in [...] that while the Pt was in the alf she had a lizarraga catheter in, and [...] left a message for My CAO with [facility] that if she has an updated medication list from when the Pt was in the alf if she could fax that to Dr Santiago at [phone]. ZACHARIAH Antonio Beth, LPN 04/20/2025 3:36 PM Signed My calling back she will fax list from the SNF and will have to update med list with her admission notes to [facility] and fax that when she is able. Josy Saucedo RN 04/20/2025 4:08 PM Signed Call received from My nurse at [facility], regarding orders for Pt (see below notation). [facility] nurse observed Pt self-cath, and she was not cleansing herself well. Pt's daughter is voicing concern about Pt's inability to do this at home. [facility] is requesting order for chronic indwelling lizarraga cathether, 16F. Last OV with urology - Tom Baltazar PA-C: [facility] phone: [facility] office phone: Fax number for orders: Josy Saucedo RN April 20, 2025 4:07 PM Dillan Santiago MD 04/20/2025 5:03 PM Signed Agree Does she need orders for the 16 croatian indwelling lizarraga? Thanks Regards, Gabi Cesar MD, RN 04/20/2025 5:14 PM Signed My CAO with [facility] called and is notified of providers message. She voices understanding and reports that yes she does need the orders for the 16 croatian indwelling lizarraga. She states she can take a verbal order for that and we can leave a VM as her line is secure. She is also going to have her office fax over an updated medication list from when she was at the alf when she is done with her note. ZACHARIAH Antonio Chitra, MD 04/20/2025 5:39 PM Signed Verbal ok for the same Regards, Gabi Cesar MD, RN 04/20/2025 6:39 PM Signed Called and left a detailed voicemail notifying My CAO with [facility] of providers message. Clinic phone number was left in case she had any questions. 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 Author [...] until 03/04, followed by a stay at [facility] beginning on 03/19. Michaela is scheduled to be discharged from [facility] on Sunday. Her daughter has arranged for [...] and balance issues. - Referral sent to [facility] for PT and OT. [...] to be stage 2 ulcer - Ordered chcf for wound care management. - Utilize hypochlorous [...] excuse any unintended typographical errors. Recording using [employer] software for draft documentation of the visit was discussed with the patient/authorized customer field representative; all questions welcomed and answered. Patient/authorized customer field representative agreed to proceed Dillan Santiago MD CNOV Observed: 04/17/2025 11:20 AM Status: COMPLETED Source: [facility] Office Visit (INTMWS) MICHAELA BRANDT ([id number]) 1940 F Date Time Provider Department 04/17/25 11:20 AM DILLAN SANTIAGO During your visit today, [...] is a positive sign for healing. - group home will be arranged to clean and [...] you have experienced in the past. - group home will assist with catheter care, including [...] These were helpful during your stay at [facility]. - Mental Health: - You are [...] are awaiting an updated medication list from [facility] to confirm all current prescriptions and dosages. - Living Arrangements: - Your daughter is exploring assisted living options for you, including a facility in [facility]. This will require private pay for two [...] - A referral has been sent to [facility] for chcf, PT, and OT. They will also assess your eligibility for additional home health aide services. - Your bob jaxon is working with [facility] and other resources [...] support your care needs. Next Steps: - group home, PT, and OT will be arranged [...] until 03/04, followed by a stay at [facility] beginning on 03/19. Michaela is scheduled to be discharged from [facility] on Sunday. Her daughter has arranged for [...] and balance issues. - Referral sent to [facility] for PT and OT. [...] to be stage 2 ulcer - Ordered chcf for wound care management. - Utilize hypochlorous [...] any unintended typographical errors. Recording using [employer] software for draft documentation of the visit was discussed with the patient/authorized customer field representative; all questions welcomed and answered. Patient/authorized customer field representative agreed to proceed Dillan Santiago MD Allergies As of Date: 04/17/2025 (No Known Allergies) Date Reviewed: 04/17/2025 Reviewed by: Mike Guo MA - Fully Assessed Reason for Visit: ER F/U [41] Cmt: [facility] 03/01/25 fall-left hip FX; 03/02/25 Left hip cephalomedullary nail fixation, 03/04/25 transferred to [facility]CU for rehabilitation, 03/19/25 transferred to [facility] for continuing rehabilitation Primary Visit Diagnosis:Ambulatory dysfunction [R26.2] Other Visit Diagnoses:Weakness of both lower extremities [R29.898] Balance disorder [R26.89] 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] Closed fracture of left hip with delayed healing, subsequent encounter [S72.002G] 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) [G30.1, F02.B18] Pressure injury of sacral region, unstageable (HCC) [L89.150] Urinary catheter in place [Z96.0] Malnutrition, unspecified type (HCC) [E46] Anxiety and depression [F41.9, F32.A] Insomnia, unspecified type [G47.00] Acute deep vein thrombosis (DVT) of proximal vein of left lower extremity (HCC) [I82.4Y2] Chronic anticoagulation [Z79.01] Pressure injury of left buttock, 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] Order(s):CONSULT TO NON-CCF FACILITY [2567011] Order #: [id number] BAR MACHINE OPERATOR PRODUCTION [CONSULT TO SOCIAL WORK] [] Order #: [id number]: 1 Prescriptions as of 04/17/2025 - clonazePAM (KLONOPIN) [...] unstageable (*04/17/2025 DELMY (dementia of Alzheimer type) ([facility]) [G30.9, *04/17/2025 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] 04/17/2025 Closed fracture of left hip ([facility]) [S72.002A] 04/17/2025 Balance disorder [R26.89] 04/17/2025 Weakness of both lower extremities [R29.898] 04/17/2025 Other instructions from your clinician: We discussed your current health concerns and care plan: - Pressure Ulcers (Bedsores): - You have three small pressure ulcers (less than 1 cm each) on your left buttock and sacral region, with some moisture-associated skin damage. These are likely stage 2 or 3 but do not currently have slough, which is a positive sign for healing. - group home will be arranged to clean and [...] you have experienced in the past. - group home will assist with catheter care, including [...] These were helpful during your stay at [facility]. - Mental Health: - You are [...] are awaiting an updated medication list from [place] to confirm all current prescriptions and dosages. - Living Arrangements: - Your daughter is exploring assisted living options for you, including a facility in [facility]. This will require private pay for two [...] - A referral has been sent to [facility] for chcf, PT, and OT. They will also assess your eligibility for additional home health aide services. - Your bob jaxon is working with Kentrell and other resources [...] support your care needs. Next Steps: - group home, PT, and OT will be arranged [...] around the wounds), or any other concerns. Level of Service: OFFICE/OUTPATIENT ESTABLISHED [facility]IGH [facility] 40 MIN [20448] Additional E/M codes: VISIT CPLX INHERENT EANDM ASSOC WITH MED * Letter Text Encounter Status:Closed by DILLAN SANTIAGO on 04/17/25 CNPN Observed: 04/17/2025 12:00 AM Status: COMPLETED Source: [facility] Telephone (INTMWS) MICHAELA BRANDT ([id number]) 1940 F Date Time Provider Department 04/17/25 DILLAN SANTIAGO INTMichaelleWS During your visit today, we recorded the following information about you: Mike Guo MA 04/17/2025 11:44 AM Signed TC to nurse at [place] to obtain current med list. Unable to [...] Assessed Reason for Visit: Request information from alf [Other] Prescriptions as of 04/20/2025 - citalopram [...] unstageable (*04/17/2025 DELMY (dementia of Alzheimer type) ([facility]) [G30.9, *04/17/2025 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] 04/17/2025 Closed fracture of left hip ([facility]) [S72.002A] 04/17/2025 Balance disorder [R26.89] 04/17/2025 Weakness of both lower extremities [R29.898] 04/17/2025 Encounter Status:Closed by GABI MCELROY on 04/20/25 CNPN Observed: 04/17/2025 12:00 AM Status: COMPLETED Source: [facility] Telephone (INTMWS) MICHAELA BRANDT ([id number]) 1940 F Date Time Provider Department 04/17/25 [...] 04/17/2025 10:54 AM Signed Wes with [employer] called and is notified of providers message. [...] Encounter Status:Closed by GABI MCELROY on 04/17/25 CNPN Observed: 04/17/2025 12:00 AM Status: COMPLETED Source: [facility] Telephone (NAVWST) MICHAELA BRANDT ([id number]) 1940 F Date Time Provider Department 04/17/25 KENTRELL MONTGOMERY During your visit today, we recorded the following information about you: Kentrell Montgomery, DEVELOPING MACHINE TENDER 04/17/2025 1:00 PM Signed This Sw received SW consult and will work on reaching out to patient daughter to discuss social service needs. This Sw also notes that there is a message from today from [facility] noting orders for SN,PT,OT. It looks like Dr. Santiago agreed to [facility] seeing patient. Kentrell Montgomery, DEVELOPING MACHINE TENDER 04/17/2025 1:49 PM Signed Thomas tried call to patient daughter and vmail is full, unable to leave message. Thomas will try call another time. Kentrell Montgomery MSW 04/17/2025 3:19 PM Signed Thomas spoke with patient daughter in regards to Home Health questions and also current housing AL options. Maribeth and Thomas discussed that [facility] looks to be an option for home healthcare. Thomas left message for [facility] referral line to call this Sw back to confirm if they will be serving patient home healthcare needs. Maribeth notes that [facility] will be providing home pediatric acute care unit nurse next week when patient stays at her apt. Maribeth notes that patient will then be coming to stay with her,until opening at [facility]. Maribeth notes that she is working on getting bedroom ready at there home for patient to come and stay with he. There is a wait list at [facility]. Sw will let patient daughter know what she finds out from [facility]. Maribeth also mentioned a letter for her [...] unstageable (*04/17/2025 DELMY (dementia of Alzheimer type) ([facility]) [G30.9, *04/17/2025 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] 04/17/2025 Closed fracture of left hip ([facility]) [S72.002A] 04/17/2025 Balance disorder [R26.89] 04/17/2025 Weakness of both lower extremities [R29.898] 04/17/2025 Encounter Status:Closed by DILLAN SANTIAGO on 04/17/25 MIK Observed: 03/19/2025 12:00 AM Status: COMPLETED Source: [facility] Telephone (NAVWST) MICHAELA BRANDT ([id number]) 1940 F Date Time Provider Department 03/19/25 KENTRELL MONTGOMERY During your visit today, we recorded the following information about you: Kentrell Montgomery, JUVE 03/19/2025 3:34 PM Signed Sw spoke with patient daughter Maribeth. Maribeth notes that patient is currently at [facility] right now. Transitioned there today. Maribeth notes that she needs to cancel patient appt with Dr. Santiago tomorrow. Sw notes that she will send message to Dr. Santiago regarding this need. Maribeth also noted that she is going to send My Chart message as well in regards to cancelling appt. Maribeth notes that the hospital had encouraged patient to go to [facility] for further care after being in [facility]. Daughter is trying to get with admissions at [facility] in regards to them saying that she is going there for 30 days and being placed in LTC and not Rehab. Daughter also notes that she has an appt next week with Swing Saw Operator for financial planning. Maribeth also noted that she would like patient to see Dr. Santiago if and when she leaves [place]. While in [place], patient will be followed by their provider. Sw did encourage patient daughter to also reach out to [facility] and [facility] for further support guidance regarding LTC planning. Sw will forward note to Dr. Santiago and her office in regards to appt cancellation need for tomorrow. Mckenzie Lombardo LPN 03/19/2025 4:00 PM Signed Canceled appointment for tomorrow per patients daughter request. Mckenzie Lombardo LPN March 19, 2025 4:00 PM Dillan Santiago MD 03/19/2025 4:55 PM Signed Thanks and noted Regards, Kentrell Herrera MD, DEVELOPING MACHINE TENDER 03/20/2025 3:12 PM Signed Maribeth reached out to Sw in regards to question about patient seeing [facility] provider and liking to keep Dr. Santiago. Marbieth notes that she feels like patient plan at this time will be to stay at [facility] for 30 days. Maribeth and this Sw discussed speaking with [facility] admissions and Sw in regards to consent to sign for them to share info with Dr. Santiago. Maribeth notes that she is going to try and speak with admissions today as she wants to see what happened with patient transitioning to rehab services instead of LTC. Maribeth notes that she still has appt next week with Swing Saw Operator as well. Maribeth notes that she is also going to check with SW at [facility] in regards to counselor option for patient. This Sw is not aware of counseling service that provides mental health services at [place]. Daughter notes that she will ask about mental health treatment options there at [place]. Daughter is concerned about patient being "depressed" and wanting to obtain support for patient while in LTC. Maribeth has this Sw direct number for any further needs. aMribeth states that she also plans on reaching [...] Encounter Status:Closed by GABI MCELROY on 03/19/25 MIK Observed: 02/27/2025 12:00 AM Status: COMPLETED Source: [facility] Telephone (ZOEYWST) REXMICHAELA MARTINEZ ([id number]) 1940 F Date Time Provider Department 02/27/25 [...] that her mother is currently living [place] DrGilbert Stahl is concerned about mother living by herself. There are cameras set up in [facility] to keep watch on patient in case of falls. Discussed different social service agencies and services they offer ie. [facility] and [facility] Thomas provided patient daughter with [facility] phone number for help with looking at memory care options in the area. Thomas and daughter also discussed different local memory care options ie. [place], [place], [facility], [facility]. Maribeth notes that her mom was not interested in any place that "looks like a alf." Discussed the different options above and layout and levels of care they offer. Maribeth notes that she is going to give Yuko a call from [facility] to see about her assistance as a half-way advisor looking at level of care memory care options for patient. Maribeth has this direct number for further assistance. Allergies As of Date: 02/27/2025 (No Known Allergies) Date Reviewed: 02/19/2025 Reviewed by: Venkata, Carolina, MANAGER SERVICING - Fully Assessed Prescriptions as of 03/02/2025 [...] Encounter Status:Closed by KENTRELL MONTGOMERY on 03/02/25 BACTERIA UR CULT Observed: 02/19/2025 4:40 PM Status: F Source: [facility] CULTURE, URINE: Mixed microbiota, including predominantly: ORGANISM ID: 1 >=100,000 CFU/ml Escherichia coli ORGANISM ID: 1 (ESCHERICHIA COLI) ----- ----- ANTIBIOTIC INTERPRETATION [place] STATUS REFERENCE RANGE ----- ----- Ampicillin S 8 F Susceptible <=8 , [...] <=32 , Intermediate >32 , Resistant >64 Performed By: #### 630-4 ### # [facility] CLIA [id number] [address] [place] [address] STATES OF [place] [facility] PROGRESS Observed: 02/19/2025 11:37 AM Status: COMPLETED Source: [facility] ID: [id number] Author: WALT ROBLES APRN.[facility] Service: ? Author Type: Nurse Practitioner Type: Progress Notes Filed: 02/19/2025 12:00 Note Text: [facility] Subjective Michaela Brandt is a [...] history is provided by the patient. No automotive parts interpreter was used. Review of Systems [...] change accordingly. Walt Robles APRN.CNP MDM Procedures CNOV Observed: 02/19/2025 11:30 AM Status: COMPLETED Source: [facility] Office Visit (WSTR) MICHAELA BRANDT ([id number]) 1940 F Date Time Provider Department 02/19/25 11:30 AM WALT ROBLES SUSANA During your visit today, we recorded the following information about you: Temperature Pulse Respiration Blood pressure 98.7 degrees 70/minute 22/minute 145/79 Weight 57 kg Walt Robles APRN.CNP 02/19/2025 12:00 PM Signed [facility] Subjective Michaela Brandt is a [...] history is provided by the patient. No automotive parts interpreter was used. Review of Systems [...] be changed please change accordingly. Walt Robles APRN.DIRECTOR OF RECRUITING MDM Procedures Allergies As of Date: 02/19/2025 (No Known Allergies) Date Reviewed: 02/19/2025 Reviewed by: Carolina Hastings LPN - Fully Assessed Reason for Visit: Urinary Problem [252] Cmt: Brain fog, 1 day Primary Visit Diagnosis:Recurrent UTI (urinary tract infection) [N39.0] Order(s):UA DIP, URINE (POC) [[id number]] Order #: [id number]. #:[id number] cephALEXin (KEFLEX) 500 mg capsuleTake 1 capsule [...] Problem List As Of Date: 02/19/2025 (None) Prescriptions ordered this encounter Disp Refills Start End CEPHALEXIN 500 MG CAPSULE 28 c* 0 02/19/2025 02/26/2025 Route: ORAL Sig: Take 1 capsule by mouth four times daily for 7 days. Encounter Status:Closed by WALT ROBLES on 02/19/25 MIK Observed: 02/19/2025 12:00 AM Status: COMPLETED Source: [facility] MICHAELA BRANDT ([id number]) 1940 F Date Time Provider Department 02/19/25 WALT ROBLES [facility] During your visit today, we recorded the following information about you: Walt Robles APRN.[facility] 02/19/2025 3:04 PM Signed Please call patient [...] [R35.0] Order(s):BACTERIAL CULTURE, URINE [SQURCUL] Order #: [id number] Prescriptions as of 02/19/2025 - cephALEXin (KEFLEX) [...] Encounter Status:Closed by COLTEN GREER on 02/19/25 PROGRESS Observed: 02/18/2025 11:19 AM Status: COMPLETED Source: [facility] HNO ID: [id number] Author: MICHAELA DAVILA MA Service: ? Author Type: Clothes Wringer Type: Progress Notes Filed: 02/18/2025 16:19 Note Text: Ambulatory Ear Lavage Pre-treatment: No pre-treatment Treatment: Right ear Equipment and Irrigation solution and Volume used: Single use syringe with single use irrigation tip Water Return flow appearance: Debris Patient tolerated procedure: yes Tympanic membrane assessment: Tympanic membrane assessed by LIP pre and post procedure PROGRESS Observed: 02/18/2025 10:26 AM Status: COMPLETED Source: [facility] HNO ID: [id number] Author: MARIPOSA SALINAS APRN.CNP Service: ? Author [...] Medical Decision Making Level: 2 - Straightforward CNOV Observed: 02/18/2025 10:20 AM Status: COMPLETED Source: [facility] Office Visit (INTMWS) MICHAELA BRANDT ([id number]) 1940 F Date Time Provider Department 02/18/25 10:20 AM MARIPOSA SALINAS During your visit today, we [...] Influenza Vaccine(1) due on 07/20/2024 Covid-19 Vaccine( season) due on 07/20/2024 Advance Directive Discussion [...] Follow up Primary Visit Diagnosis:Impacted cerumen of right ear [H61.21] Order(s):AMBULATORY EAR LAVAGE/IRRIGATION [08756CEF] Order #: [id number] Prescriptions as of 02/18/2025 - ascorbic acid (VITAMIN C ORAL) Take [...] at bedtime. Problem List As Of Date: 02/18/2025 (None) Encounter Status:Closed by MARIPOSA SALINAS on 02/18/25 TSH SERPL-ACNC Collected: 12:18 PM Status: F Source: [facility] Order Comment: Specimen Type : BLOOD SPECIMEN Ordering Facility: [facility] Address: [address] [place] [address] TYPE CODE TESTS RESULT OUT OF RANGE REFERENCE UNITS LAB 3016-3(LOINC) TSH SerPl-aCnc 1.190 0.270-4.200 mIU/L Performed By: #### 3016-3 ## ## [facility] CLIA [id number] [address] [place] [address] OF [place] PROGRESS Observed: 02/04/2025 3:41 PM Status: COMPLETED Source: [facility] HNO ID: [id number] Author: DILLAN SANTIAGO MD Service: ? Author [...] patient consented to the use of ambient Syncing[employer]Net software for draft documentation of the visit consistent with [facility]?s Notice of Privacy Practices. Dillan Santiago MD CNOV Observed: 02/04/2025 11:30 AM Status: COMPLETED Source: [facility] Office Visit (GERIWR) MICHAELA BRANDT ([id number]) 1940 F Date Time Provider Department 02/04/25 [...] patient consented to the use of ambient AI software for draft documentation of the visit consistent with [facility]?s Notice of Privacy Practices. 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 Problem List As Of Date: 02/04/2025 (None) Other instructions from your clinician: We discussed your memory concerns and medications: [...] your continued efforts in managing your health. Prescriptions ordered this encounter Disp Refills Start End DONEPEZIL 10 MG TABLET 90 t* 3 02/04/2025 02/04/2025 Route: ORAL Sig: Take 1 tablet by mouth daily after breakfast. Medications Discontinued During This Encounter Prescriptions - donepezil (ARICEPT) 5 mg tablet (Discontinued) Take 1 tablet by mouth daily at bedtime. Level of Service: OFFICE/OP CONSLTJ NEW/EST PT MOD MDM 40 MINUTES [60708] Encounter Status:Closed by DILLAN SANTIAGO on 02/04/25 MRI BRAIN W QUANT WO IVCON Observed: 06/2025 2:05 PM Status: F Source: [facility] * * *Final Report* * * DATE [...] dementia protocol and 3-D post-processing using the [employer] software at an independent workstation with concurrent [...] Prior intracranial hemorrhage: Parenchymal microhemorrhages: 0 Other (siderosis/macrohemorrhages (>10mm): Not Applicable Amyloid Related Imaging Abnormalities: [...] = Focal Lesions 2 = Beginning of [place] 3 = Diffuse Involvement of Entire Region [...] results from the analysis charts for details. Pin Worker: MINDY Transcribe Date/Time: Jan 24 2025 2:14P Dictated by : PUJA KIM MD This examination was interpreted and the report reviewed and electronically signed by: PUJA KIM MD on Jan 24 2025 2:29PM EST [id number] MRI 3D BRAIN QUANT Observed: 01/24/2025 2:05 PM Status: F Source: [facility] * * *Final Report* * * DATE [...] dementia protocol and 3-D post-processing using the [employer] software at an independent workstation with concurrent [...] Prior intracranial hemorrhage: Parenchymal microhemorrhages: 0 Other (siderosis/macrohemorrhages (>10mm): Not Applicable Amyloid Related Imaging Abnormalities: [...] = Focal Lesions 2 = Beginning of [place] 3 = Diffuse Involvement of Entire Region [...] results from the analysis charts for details. Pin Worker: MINDY Transcribe Date/Time: Jan 24 2025 2:14P Dictated by : PUJA KIM MD This examination was interpreted and the report reviewed and electronically signed by: PUJA KIM MD on Jan 24 2025 2:29PM EST [id number] PROGRESS Observed: 01/24/2025 12:30 PM Status: COMPLETED [facility] [id number] Author: MANISHA PAVON RT(R) Service: Radiology Author Type: Technologist Type: [...] PATIENT PRESENTS WITH AN IMPLANTABLE OR ATTACHED EMT P: No RADIOLOGY DEPARTMENT: MR; Exam(s) Completed: Head: Routine Brain (QUANT) PERIPHERAL IV DATA: Not applicable SIGNED BY: RT [place](R)(MR) January 24, 2025 1:31 PM PROGRESS Observed: 12/23/2024 10:59 AM Status: COMPLETED Source: [facility] HNO ID: [id number] Author: GRAZYNA BRIGHT RN Service: ? Author Type: Physician Cleaner And Polisher Type: Progress Notes Filed: 05/19/2025 09:06 Note Text: [facility] NEW PATIENT CLINIC NOTE (F) SERVICE [...] 4 times per day, for permanent urinary retention Chronic stable, > 1 year Appt w/ [facility]. VADIM Baltazar MT, PA-C for annual follow-up and refills. VADIM Stanford MT, PA-C CNOV Observed: 12/23/2024 10:00 AM Status: COMPLETED Source: [facility] Office Visit (UROLWS) MICHAELA BRANDT ([id number]) 1940 F Date Time Provider Department 12/23/24 10:00 AM TOM BALTAZAR During your visit today, we recorded the following information about you: Temperature Pulse Respiration Blood pressure 97.4 degrees 80/minute 12/minute 144/64 Weight 59.9 kg Tom Baltazar PA-C 12/23/2024 3:21 PM Addendum [facility] NEW PATIENT CLINIC NOTE [...] 4 times per day, for permanent urinary retention Chronic stable, > 1 year Appt wVADIM Harden, LIANG, NASIR for annual follow-up and refills. 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 #:[id number] Prescriptions as of 05/19/2025 - sodium chloride 0.9 % IRRIGATION Irrigate [...] mouth once daily. Problem List As Of Date: 12/23/2024 (None) Disposition: Return in about 1 year (around 12/23/2025). Follow-up and Disposition History for Encounter Date Provider Department Center 12/23/2024 [id number] BALTAZAR Mill Letter Text Encounter Status:Closed by TOM BALTAZAR on 12/23/24 CNPN Observed: 12/23/2024 12:00 AM Status: COMPLETED Source: [facility] Telephone (UROLWS) MICHAELA BRANDT ([id number]) 1940 F Date Time Provider Department 12/23/24 TOM BALTAZAR During your visit today, we recorded the following information about you: Nusrat Crespo LPN 12/23/2024 4:46 PM Signed Faxed signed Authorization to Disclose Health Information to [facility] to office of Dr. Ovalle for urological records. RAMIREZ Valdes Kimberly, LPN 12/25/2024 12:50 PM Signed Received one lab from [facility] via [employer]. Uploaded to [employer] via [employer]. Nusrat Crespo LPN Allergies As of Date: 12/23/2024 (No Known Allergies) Date Reviewed: 12/23/2024 Reviewed by: Nusrat Crespo LPN - Fully Assessed Reason for Visit: Request Outside Medical Records [6606] Prescriptions as of 12/25/2024 - Catheter (SELF-CATHETER, [...] Encounter Status:Closed by NUSRAT CRESPO on 12/25/24 PROGRESS Observed: 12/10/2024 1:11 PM Status: COMPLETED Source: [facility] HNO ID: [id number] Author: COLTEN GREER MA Service: ? Author Type: Clothes Wringer Type: Progress Notes Filed: 12/10/2024 17:10 Note Text: Patient presents for geriatric consult with daughter Teodora. Rooming intake completed with patient and Teodora to ensure accuracy. PHQ-9 and MOCA reviewed with patient and entered into questionnaires. Colten Greer MA PROGRESS Observed: 12/10/2024 12:54 PM Status: COMPLETED Source: [facility] HNO ID: [id number] Author: DILLAN SANTIAGO MD Service: ? Author Type: Physician Type: Progress Notes Filed: 12/10/2024 17:10 Note Text: [facility] Initial Consult Michaela Brandt [...] on her own. They are looking into [facility]. Have cameras installed so they [...] she knows and feels. Just moved to [place] where her daughter lives after needing to sell her 3 story home to allow her to continue to live independently. Last PCP was Ludin Richey in the [place] area. Is now in her own 1 level apartment. Needs assistance with medication dispensing and is needing support to drive her to appointments and to the store. Is hoping to go to [employer] a few times a week as well. [...] UTIs and followed with a urologist in [place]. Denies abdominal pain, fever, chills, or dark/foul [...] secure location? No Social History: Primary language: Hungarian Marital Status: Living situation: Home w/ Family Socially engaged? (participates in activities such as clubs, sabianist, community center, sports, games, visiting friends/relatives, etc?): YES once a week she goes out. Caregiver [place] and Stress Are your feeling overwhelmed? NO [...] , Taking? Yes, Authorizing Provider Mariposa Salinas APRN.DIRECTOR OF RECRUITING Medication escitalopram oxalate (LEXAPRO) 20 mg tablet, Sig Take 1 tablet by mouth once daily., Start Date 11/05/24, End Date , Taking? Yes, Authorizing Provider Mariposa Salinas APRN.DIRECTOR OF RECRUITING Medication traZODone (DESYREL) 50 mg tablet, Sig Take 1 tablet by mouth daily at bedtime., Start Date 11/05/24, End Date , Taking? Yes, Authorizing Provider Mariposa Salinas APRN.DIRECTOR OF RECRUITING Medication clonazePAM (KLONOPIN) 0.5 mg tablet, Sig Take 1 tablet by mouth three times a day as needed for anxiety for up to 30 days., Start Date 11/05/24, End Date 12/05/24, Taking? , Authorizing Provider Mariposa Salinas APRN.DIRECTOR OF RECRUITING Other OTC med/supplements: None Medication Review: - ANY HIGH RISK MEDICATIONS (STOPP CRITERIA): NO ALLERGIES No Known Allergies Review of Systems Difficulty chew/swallow: No Pain: No Tremor: No Incontinence - During the last 3 months did you leak urine? NO Constipation/Change in bowel habits: NO Vision No vision problems reported Follows with financial reporting specialist:YES Hearing - Hearing aid : Denies any problems Falls: .: Falls in the last 12 months: None. If + falls: Physical Exam: General: Well-nourished, kempt Ambulatory: without assistance Mobility Aid: None Head: Normocephalic Eyes: conjunctiva/corneas normal, EOMI Ears: R TM - clear with good landmarks, nl light reflex, L TM - clear with good landmarks, nl light reflex Nose: clear Oropharynx: moist without lesions, teeth [...] encouraged to make her paper work for [employer] and living [employer]ike. REFERRALS AND RECOMMENDATIONS 1. Discussed the cognitive benefits of memory exercises and reviewed examples 2. Discussed the cognitive benefits of physical exercise and socialization Dillan Santiago MD [facility] Geriatric Medicine [facility] CNOV Observed: 12/10/2024 12:30 PM Status: COMPLETED Source: [facility] Office Visit (ELISAIWR) MICHAELA BRANDT ([id number]) 1940 F Date Time Provider Department 12/10/24 12:30 PM DILLAN SANTIAGO During your visit today, we recorded the following information about you: Dillan Santiago MD 12/10/2024 5:10 PM Signed [facility] Medicine Initial Consult Michaela Brandt is a [...] on her own. They are looking into [email or web address] day care. Have cameras installed so they [...] she knows and feels. Just moved to [place] where her daughter lives after needing to sell her 3 story home to allow her to continue to live independently. Last PCP was Ludin Richey in the [place] area. Is now in her own 1 level apartment. Needs assistance with medication dispensing and is needing support to drive her to appointments and to the store. Is hoping to go to [employer] a few times a week as well. [...] UTIs and followed with a urologist in [place]. Denies abdominal pain, fever, chills, or dark/foul [...] secure location? No Social History: Primary language: Hungarian Marital Status: Living situation: Home w/ Family Socially engaged? (participates in activities such as clubs, sabianist, community center, sports, games, visiting friends/relatives, etc?): YES once a week she goes out. Caregiver [place] and Stress Are your feeling overwhelmed? NO [...] , Taking? Yes, Authorizing Provider Mariposa Salinas APRN.DIRECTOR OF RECRUITING Medication escitalopram oxalate (LEXAPRO) 20 mg tablet, Sig Take 1 tablet by mouth once daily., Start Date 11/05/24, End Date , Taking? Yes, Authorizing Provider Mariposa Salinas APRN.DIRECTOR OF RECRUITING Medication traZODone (DESYREL) 50 mg tablet, Sig Take 1 tablet by mouth daily at bedtime., Start Date 11/05/24, End Date , Taking? Yes, Authorizing Provider Mariposa Salinas APRN.DIRECTOR OF RECRUITING Medication clonazePAM (KLONOPIN) 0.5 mg tablet, Sig Take 1 tablet by mouth three times a day as needed for anxiety for up to 30 days., Start Date 11/05/24, End Date 12/05/24, Taking? , Authorizing Provider Mariposa Salinas APRN.DIRECTOR OF RECRUITING Other OTC med/supplements: None Medication Review: - ANY HIGH RISK MEDICATIONS (STOPP CRITERIA): NO ALLERGIES No Known Allergies Review of Systems Difficulty chew/swallow: No Pain: No Tremor: No Incontinence - During the last 3 months did you leak urine? NO Constipation/Change in bowel habits: NO Vision No vision problems reported Follows with financial reporting specialist:YES Hearing - Hearing aid : Denies any problems Falls: .: Falls in the last 12 months: None. If + falls: Physical Exam: General: Well-nourished, kempt Ambulatory: without assistance Mobility Aid: None Head: Normocephalic Eyes: conjunctiva/corneas normal, EOMI Ears: R TM - clear with good landmarks, nl light reflex, L TM - clear with good landmarks, nl light reflex Nose: clear Oropharynx: moist without lesions, teeth in good repair Neck: supple and no adenopathy Cardio: regular rate and rhythm Pulmonary: Lungs clear to auscultation bilaterally Extremities: Extremities normal. No deformities, edema, or skin discoloration. Musculoskeletal: Normal Gait Neuro:Deep Tendon reflexes :2/4 , Both Gait: Unsteadiness: yes Shuffling: NO Tremors: NO Slowness: yes [place] Cognitive Exam (MOCA): 13/30 CDR Dementia Scale 1) Subjective Memory Loss: [...] encouraged to make her paper work for [employer] and living [employer]. REFERRALS AND RECOMMENDATIONS 1. Discussed the cognitive benefits of memory exercises and reviewed examples 2. Discussed the cognitive benefits of physical exercise and socialization Dillan Santiago MD [facility] Colten Greer MA 12/10/2024 5:10 PM Signed Patient presents for geriatric consult with daughter Teodora. Rooming intake completed with patient and Teodora to ensure accuracy. PHQ-9 and MOCA reviewed with patient and entered into questionnaires. Colten Greer MA Referring Provider: MARIPOSA SALINAS [[id number]] Allergies As of Date: 12/10/2024 (No Known Allergies) Date Reviewed: 12/10/2024 Reviewed by: Colten Greer MA - Fully Assessed Reason for Visit: Consult [173] Primary Visit Diagnosis:Cognitive impairment, mild, so stated [G31.84] Other Visit Diagnoses:Self-catheterizes urinary bladder [Z78.9] Balance disorder [R26.89] Concern about memory [Z71.1] Anxiety and depression [F41.9, F32.A] Assistance needed for bathing [Z74.1] Ambulates with cane [Z99.89] Order(s):CONSULT TO GERIATRICS [9012] Order #: [id number]: 1 MRI BRAIN W QUANT WO IVCON [[id number]] Order #: [id number] FUTURE MRI 3D BRAIN QUANT [1528093] Order #: [id number] FUTURE Prescriptions as of 12/10/2024 - levothyroxine (EUTHYROX) 50 mcg tablet Take 1 tablet by mouth once daily. - escitalopram oxalate (LEXAPRO) 20 mg tablet Take 1 tablet by mouth once daily. - traZODone (DESYREL) 50 mg tablet Take 1 tablet by mouth daily at bedtime. - clonazePAM (KLONOPIN) 0.5 mg tablet Take 1 tablet by mouth three times a day as needed for anxiety for up to 30 days. Problem List As Of Date: 12/10/2024 (None) Level of Service: ASSMT AND CARE PLANNING PT W/COGNITIVE IMPAIRMENT [75506] Questionnaire: MOCA Visuospatial/exec (0-5) -> 2 Naming (0-3) -> 3 Memory Words, up to 2 trials: Face, Velvet, Hindu, Azar, Red (no points) -> 0 Attention forwards: 2 1 8 5 4 (0-1) -> 1 Attention backwards: 7 4 2 (0-1) -> 1 Tap for the "A": F B A C M N A A J K L B A F A K D E A A A J A M O F A A B (1 point if 0 or 1 error) -> 1 Serial subtraction by 7: [id number] (3 points for correct 4 or 5; 2 points for 2 or 3 correct; 1 point for 1 correct) -> 1 Language: repeat: I only know that Jeffrey is the one to help today (0-1) -> 1 Language: repeat: The cat always hid under the couch when dogs were in the room (0-1) -> 1 Fluency: max words beginning with the letter F (1 point if 11 or more words) -> 0 Abstraction: practice banana-orange=fruit. Then train-bicycle (1) AND watch-ruler (1) total: (2) -> 1 Delayed recall: recall words: face, velvet, sabianist, azar, red (0-5) -> 0 Orientation: date(1), month(1), year(1), day(1), place(1), city(1) max 6 points * Level of education: add 1 if did not receive more than a HS education -> 0 Total Score max 30 or 31 -> 13 Hearing impaired (Y or N) -> No Vision impaired (Y or N) -> No Questionnaire: PHQ-9 THE LAST 2 WEEKS, HAVE YOU BEEN BOTHERED BY ANY OF THE FOLLOWING? -> - Little interest or pleasure in doing things -> 0 NOT AT ALL Feeling down, depressed, or hopeless -> 0 Trouble falling or staying asleep, or sleeping too much -> 0 Feeling tired or having little energy -> 1 Poor appetite or overeating -> 0 Feeling bad yourself-you are a failure or have let yourself or others -> 3 Trouble concentrating, like reading the paper or watching TV -> 0 Moving/speaking slowly (others notice) OR being more fidgety/restless -> 0 Thoughts that you would be better off or of hurting yourself -> 0 PHQ TOTAL SCORE = -> 4 PHQ problems effect on difficulty of work, home, and social activity: -> 1 - NOT DIFFICULT AT ALL Encounter Status:Closed by DILLAN SANTIAGO on 12/10/24 MIK Observed: 12/10/2024 12:00 AM Status: COMPLETED Source: [facility] Telephone (ELISAIWR) MICHAELA BRANDT ([id number]) 1940 F Date Time Provider Department 12/10/24 DILLAN SANTIAGO During your visit today, we recorded the following information about you: Colten Greer MA 12/10/2024 2:11 PM Signed Patient's daughter states that [facility] needs something from Dr. Santiago that its ok for patient to attend but not sure what exactly is needed. Phone call to [facility] for intake to contact our office to see what information they need from us. Colten Greer MA Mckenzie Lombardo RAMIREZ 12/12/2024 2:29 PM Signed Called [facility]al for 2nd time, left message with Intake. To call office back [facility]# [phone] Mckenzie Lombardo MANAGER SERVICING December 12, 2024 2:29 PM Colten Greer MA 12/16/2024 2:34 PM Signed Spoke with Giovanni at [facility]. Once he has seen the patient [...] Encounter Status:Closed by COLTEN GREER on 12/16/24 [facility] Observed: 11/21/2024 12:00 AM Status: COMPLETED Source: [facility] MICHAELA BRANDT ([id number]) 1940 F Date Time Provider Department 11/21/24 MARIPOSA SALINAS During your visit today, we recorded the following information about you: Mariposa Salinas APRN.DIRECTOR OF RECRUITING 11/21/2024 9:19 AM Signed White blood count elevated. Any sign of infection? Urinary tract infection? Respiratory concerns? Thank you Mariposa Salinas APRN.DIRECTOR OF RECRUITING Michaela Davila MA 11/21/2024 11:58 AM Signed [...] Encounter Status:Closed by MARIPOSA SALINAS on 03/30/25 CBC PNL BLD AUTO Collected: 4 9:33 AM Status: F Source: [facility] Order Comment: Specimen Type : BLOOD SPECIMEN Ordering Facility: [facility] Address: [address] [place] [address] TYPE CODE TESTS RESULT OUT OF RANGE REFERENCE UNITS LAB 6690-2(LOINC) WBC # Bld Auto 13.60 High 3.70-11.00 k/uL LAB 789-8(LOINC) RBC # Bld Auto 4.29 3.90-5.20 m/uL LAB 718-7([facility]) Hgb Bld-mCnc 13.1 11.5-15.5 g/dL LAB 4544-3([facility]) Hct VFr Bld Auto 37.7 36.0-46.0 % LAB 787-2([facility]) MCV RBC Auto 87.9 80.0-100.0 fL LAB 785-6([facility]) MCH RBC Qn Auto 30.5 26.0-34.0 pg LAB 786-4([facility]) MCHC RBC Auto-mCnc 34.7 30.5-36.0 g/dL LAB 96493-8([facility]) RDW RBC-Rto 13.2 11.5-15.0 % LAB 777-3([facility]) Platelet # Bld Auto 176 150-400 k/uL LAB 29504-8([facility]) PMV Bld Auto 10.3 9.0-12.7 fL LAB 771-6([facility]) nRBC # Bld Auto <0.01 <0.01 k/uL Performed By: #### 76458-8 # ### [facility] CLIA [id number] [address] [place] [address] [place] COMP METAB 2000 PNL SERPL Collected: 9:33 AM Status: F Source: [facility] Order Comment: Specimen Type : BLOOD SPECIMEN Ordering Facility: [facility] Address: [address] [place] [address] TYPE CODE TESTS RESULT OUT OF RANGE REFERENCE UNITS LAB 2885-2([facility]) Prot SerPl-mCnc 6.6 6.3-8.0 g/dL LAB 1751-7([facility]) Albumin SerPl-mCnc 4.0 3.9-4.9 g/dL LAB 19689-6([facility]) Calcium SerPl-mCnc 9.3 8.5-10.2 mg/dL LAB 1975-2([facility]) Bilirub SerPl-mCnc 1.2 0.2-1.3 mg/dL LAB 6768-6([facility]) ALP SerPl-cCnc 78 34-123 U/L LAB 1920-8(LOINC) AST SerPl-cCnc 11 Low 13-35 U/L LAB 1742-6(LOINC) ALT SerPl-cCnc 5 Low 7-38 U/L LAB 2345-7(LOINC) Glucose SerPl-mCnc 119 High 74-99 mg/dL Result Comment: The [place] Diabetes Association (ADA) provides guidance for cutoff [...] Standards of Medical Care in Diabetes 2016, [place] Diabetes Association. Diabetes Care. 2016.39(Suppl 1). LAB 3094-0(LOINC) BUN SerPl-mCnc 23 High 7-21 mg/ dL LAB 2160-0(LOINC) Creat SerPl-mCnc 0.95 0.58-0.96 mg/dL LAB 2951-2(LOINC) Sodium SerPl-sCnc 141 136-144 mmol/L LAB 2823-3(LOINC) Potassium SerPl-sCnc 3.7 3.7-5.1 mmol/L LAB 2075-0(LOINC) Chloride SerPl-sCnc 104 98-107 mmol/L LAB 2028-9(LOINC) CO2 SerPl-sCnc 23 22-30 mmo l/L LAB 00395-2(LOINC) Anion Gap SerPl-sCnc 14 8-15 mmol/L LAB 27647-5(LOINC) Creatinine + eGFR Pnl SerPlBld 59 Low >=60 mL/min/1 .73m??? Result Comment: Estimated Gl omerular Filtration Rate (eGFR) is calculated using the 2020 CKD-EPI creatinine equation. This equation utilizes serum creatinine, sex, and age as parameters. The creatinine assay has traceable calibration to isotope dilution-mass spectrometry. Refer to KDIGO guidelines for clinical interpretation. In patients with unstable renal function, e.g. those with acute kidney injury, the eGFR may not accurately reflect actual GFR. Performed By: #### 57853-9 # ### [facility] CLIA [id number] [address] [place] [address] [place] LIPID 1996 PNL SERPL Collected: 024 9:33 AM Status: F Source: [facility] Order Comment: Specimen Type : BLOOD SPECIMEN Ordering Facility: [facility] Address: [address] [place], [place] [address] [address] TYPE CODE TESTS RESULT OUT OF RANGE REFERENCE UNITS LAB 2093-3(LOINC) Cholest SerPl-mCnc 176 <200 mg/dL Result Comment: <200 mg/dL, Desirable 200-239 mg/dL, Borderline high >239 mg/dL, High LAB 2571-8(LOINC) Trigl SerPl-mCnc 83 <150 mg/dL Result Comment: <150 mg/dL, Normal 150-199 mg/dL, Borderline high 200-499 mg/dL, High >499 mg/dL, Very high LAB 2085-9(LOINC) HDLc SerPl-mCnc 52 >39 mg/dL Result Comment: 40-59 mg/dL, Acceptable >59 mg/dL, High: Negative risk factor for coronary heart disease <40 mg/dL, Low: Positive risk factor for coronary heart disease LAB 86674-9(LOINC) NonHDLc SerPl-mCnc 124 <130 mg/dL Result Comment: <130 mg/dL, Optimal 130-159 mg/dL, Near optimal/above optimal 160-189 mg/dL, Borderline high 190-219 mg/dL, High >219 mg/dL, Very high Secondary prevention optimal non HDL Cholesterol levels are recommended to be <100 mg/dL LAB FT FASTING TIME 14 hrs LAB 84265-0(LOINC) VLDLc SerPl Calc-mCnc 17 <30 mg/dL LAB 9830-1(LOINC) Cholest/HDL c SerPl 3.38 <5.10 LAB 2089-1(LOINC) LDLc SerPl-mCnc 107 High <100 mg/dL Result Comment: <100 mg/dL, Optimal 100-129 mg/dL, Near optimal/above optimal 130-159 mg/dL, Borderline high 160-189 mg/dL, High >189 mg/dL, Very high Secondary prevention optimal LDL Cholesterol levels are recommended to be < 70 mg/dL LAB 08042-8(LOINC) LDLc/HDLc SerPl 2.06 <2.54 Result Comment: Reference: 1. National Cholesterol Education Program ATP III Guideline At-A-Glance Quick Desk Reference: National Heart, Lung, and Blood [place]. National Institutes of Health. 2001: NIH Publication No. 01-3305. 2. An International Atherosclerosis Society position paper: global recommendations for the management of dyslipidemia: executive summary, Atherosclerosis. 2014: 232(2):410-413. Performed By: #### 24691-8 # ### [facility] CLIA [id number] [address] [place] [address] STATES [place] [facility] CLIA [id number] [address] [place] [address] [place] #### 3024-7, 3051-0, 3016-3 #### [facility] CLIA [id number] [address] [place] [address] [place] T3FREE SERPL-MCNC Collected: 4 9:33 AM Status: F Source: [facility] Order Comment: Specimen Type : BLOOD SPECIMEN Ordering Facility: [facility] Address: [address] [place] [address] TYPE CODE TESTS RESULT OUT OF RANGE REFERENCE UNITS LAB 3051-0(INC) T3Free SerPl-mCnc 2.4 2.3-4.1 pg/mL Performed By: #### 00532-2 # ### [facility] CLIA [id number] [address] [place] [address] [place] OF [facility] CLIA [id number] [address] [place] [address] [place] #### 3024-7, 3051-0, 3016-3 #### [facility] CLIA [id number] [address] [place] T4 FREE SERPL-MCNC Collected: 9:33 AM Status: F Source: [facility] Order Comment: Specimen Type : BLOOD SPECIMEN Ordering Facility: [facility] Address: [address] [place] [address] TYPE CODE TESTS RESULT OUT OF RANGE REFERENCE UNITS LAB 3024-7(LOINC) T4 Free SerPl-mCnc 1.2 0.9-1.7 ng/dL Performed By: #### 92087-2 # ### [facility] CLIA [id number] [address] [place] [address] [place] [facility] CLIA [id number] [address] [place] [address] [place] #### 3024-7, 3051-0, 3016-3 #### [facility] CLIA [id number] [address] [place] [address] [place] TSH SERPL-ACNC Collected: 9:33 AM Status: F Source: [facility] Order Comment: Specimen Type : BLOOD SPECIMEN Ordering Facility: [facility] Address: [address] [place] [address] TYPE CODE TESTS RESULT OUT OF RANGE REFERENCE UNITS LAB 3016-3(LOINC) TSH SerPl-aCnc 1.280 0.270-4.200 mIU/L Performed By: #### 10891-9 # ### [facility] CLIA [id number] [address] [place] [address] [place] [facility] CLIA [id number] [address] [place] [address] [place] #### 3024-7, 3051-0, 3016-3 #### [facility] CLIA [id number] [address] [place] [address] [place] VIT B12 SERPL-MCNC Collected: 11/17/2024 9:33 AM Sta tus: F Source: [facility] Order Comment: Specimen Type : BLOOD SPECIMEN Ordering Facility: [facility] Address: [address] [place] [address] TYPE CODE TESTS RESULT OUT OF RANGE REFERENCE UNITS LAB 2-9(LOINC) Vit B12 SerPl-mCnc 082 981-4718 pg/mL Performed By: #### 2132-9 ## ## [facility] CLIA [id number] [address] [place] [address] CNOV Observed: 11/05/2024 2:40 PM Status: COMPLETED Source: [facility] Office Visit (INTMWS) MICHAELA BRANDT ([id number]) 1940 F Date Time Provider Department 11/05/24 2:40 PM MARIPOSA SALINAS During your visit today, we recorded the following information about you: Pulse Respiration Blood pressure Weight 76/minute 16/minute 118/72 60.8 kg Mariposa Salinas APRN.CNP 11/05/2024 3:38 PM Signed CC: Patient presents with: Establish Care: Establish Care HPI Michaela Brandt is a 84 year old female who presents today for establish care. Just moved to [place] where her daughter lives after needing to sell her 3 story home to allow her to continue to live independently. Last PCP was Ludin Richey in the [facility]. Is now in her own 1 level apartment. Needs assistance with medication dispensing and is needing support to drive her to appointments and to the store. Is hoping to go to [employer] a few times a week as well. [...] UTIs and followed with a urologist in [place]. Denies abdominal pain, fever, chills, or dark/foul [...] - Instructed patient to contact office or [id number] after-hours promptly should condition worsen or any new symptoms appear. - [facility] and after hours crisis line 3. [...] on exam table due to balance - [facility] - CONSULT TO GERIATRICS 5. Ambulates with cane - ICD9: V46.8, ICD10: Z99.89 As above - [facility] - CONSULT TO GERIATRICS 6. Concern about memory - ICD9: V65.5, ICD10: Z71.1 Patient denies but did have moments of not remembering past information correctly. Daughter feels memory is a concern. - lives alone so needs medication dispenser to help patient appropriately take her medications. - [facility] - COMPREHENSIVE METABOLIC PANEL [...] for her to independently bathe herself. - [facility] - CONSULT TO GERIATRICS [...] Patient agreeable to treatment plan. Mariposa Salinas APRN.DIRECTOR OF RECRUITING Allergies As of Date: 11/05/2024 (No Known Allergies) Date Reviewed: 11/05/2024 Reviewed by: Michaela Davila MA - Fully Assessed Reason for Visit: Establish Care [42] Cmt: Establish Care Primary Visit Diagnosis:Encounter to establish care [Z76.89] Other Visit Diagnoses:Anxiety and depression [F41.9, F32.A] Hypothyroidism, unspecified type [E03.9] Balance disorder [R26.89] Ambulates with cane [Z99.89] Concern about memory [Z71.1] Self-catheterizes urinary bladder [Z78.9] Unable to void [R33.9] Assistance needed for bathing [Z74.1] Lipid screening [Z13.220] Urinary problem [R39.89] Order(s):escitalopram oxalate (LEXAPRO) 20 mg tabletTake 1 tablet by mouth once daily.Disp: 90 tabletRfl: 3 levothyroxine 50 mcg capTake 1 capsule by mouth daily before breakfast.Disp: 90 capsuleRfl: 3 traZODone (DESYREL) 50 mg tabletTake 1 tablet by mouth daily at bedtime.Disp: 90 tabletRfl: 3 CONSULT TO UROLOGY [9041] Order #: [id number]: 1 FUTURE ADVANCE CARE PLAN DISCUSSION [7288700] Order #: [id number]: 1 NON-[facility] [Z9019VDJ] Order #: [id number]: 1 clonazePAM (KLONOPIN) 0.5 mg tabletTake 1 tablet by mouth three times a day as needed for anxiety for up to 30 days.Disp: 45 tabletRfl: 0 LIPID PANEL BASIC [SQLIPB] Order #: [id number] FUTURE COMPREHENSIVE METABOLIC PANEL [SQCMP] Order #: [id number] FUTURE COMPLETE BLOOD COUNT [SQCBC] Order #: [id number] FUTURE VITAMIN B12 [SQB12] Order #: [id number] FUTURE THYROID STIMULATING HORMONE [SQTSH] Order #: [id number] FUTURE T3, FREE [SQFREET3] Order #: [id number] FUTURE T4 FREE/FREE THYROXINE [SQFT4] Order #: [id number] FUTURE CONSULT TO GERIATRICS [9065] Order #: [id number]: 1 FUTURE Prescriptions as of 11/05/2024 - escitalopram oxalate (LEXAPRO) 20 mg tablet Take 1 tablet by mouth once daily. - levothyroxine 50 mcg cap Take 1 capsule by mouth daily before breakfast. - traZODone (DESYREL) 50 mg tablet Take 1 tablet by mouth daily at bedtime. - clonazePAM (KLONOPIN) 0.5 mg tablet Take 1 tablet by mouth three times a day as needed for anxiety for up to 30 days. Problem List As Of Date: 11/05/2024 (None) Prescriptions ordered this encounter Disp Refills Start End ESCITALOPRAM 20 MG TABLET 90 t* 3 11/05/2024 Route: ORAL Sig: Take 1 tablet by mouth once daily. LEVOTHYROXINE 50 MCG CAPSULE 90 c* 3 11/05/2024 Route: ORAL Sig: Take 1 capsule by mouth daily before breakfast. TRAZODONE 50 MG TABLET 90 t* 3 11/05/2024 Route: ORAL Sig: Take 1 tablet by mouth daily at bedtime. CLONAZEPAM 0.5 MG TABLET 45 t* 0 11/05/2024 12/05/2024 Route: ORAL Sig: Take 1 tablet by mouth three times a day as needed for anxiety for up to 30 days. Medications Discontinued During This Encounter Prescriptions - levothyroxine 50 mcg cap (Discontinued) Take 50 mcg by mouth daily before breakfast. - clonazePAM (KLONOPIN) 0.5 mg tablet (Discontinued) Take 0.5 mg by mouth three times a day as needed for anxiety. - escitalopram oxalate (LEXAPRO) 20 mg tablet (Discontinued) Take 20 mg by mouth once daily. - traZODone (DESYREL) 50 mg tablet (Discontinued) Take 50 mg by mouth daily at bedtime. Encounter Status:Closed by MARIPOSA SALINAS on 11/05/24 PROGRESS Observed: 11/05/2024 2:39 PM Status: COMPLETED [facility] [id number] Author: MARIPOSA SALINAS APRN.DIRECTOR OF RECRUITING Service: ? Author Type: Nurse Practitioner Type: Progress Notes Filed: 11/05/2024 15:38 Note Text: CC: Patient presents with: Establish Care: Establish Care HPI Michaela Brandt is a 84 year old female who presents today for establish care. Just moved to [place] where her daughter lives after needing to sell her 3 story home to allow her to continue to live independently. Last PCP was Ludin Richey in the [place] area. Is now in her own 1 level apartment. Needs assistance with medication dispensing and is needing support to drive her to appointments and to the store. Is hoping to go to [employer] a few times a week as well. [...] UTIs and followed with a urologist in [place]. Denies abdominal pain, fever, chills, or dark/foul [...] - Instructed patient to contact office or [id number] after-hours promptly should condition worsen or any new symptoms appear. - Counseling [facility] and after hours crisis line 3. [...] on exam table due to balance - [facility] - CONSULT TO GERIATRICS 5. Ambulates with cane - ICD9: V46.8, ICD10: Z99.89 As above - [facility] - CONSULT TO GERIATRICS 6. Concern about memory - ICD9: V65.5, ICD10: Z71.1 Patient denies but did have moments of not remembering past information correctly. Daughter feels memory is a concern. - lives alone so needs medication dispenser to help patient appropriately take her medications. - [facility] - COMPREHENSIVE METABOLIC PANEL [...] for her to independently bathe herself. - [facility] - CONSULT TO GERIATRICS [...] Patient agreeable to treatment plan. Mariposa Salinas, DIRECTOR OF EXHIBIT DEVELOPMENT.DIRECTOR OF RECRUITING ALLERGIES DATE TYPE / CODE NAME / CODE REACTION SEVERITY SOURCE Drug Class/[id number](SNOMED CT) NO KNOWN ALLERGIES [facility] ENCOUNTERS ADMIT/DISCHARGE ACCOUNT NUMBER ADMITTING ENCOUNTER CLASS LOCATION SOURCE 07/27/2025/ 5 [id number] [facility] MAINBuilding: MARION [facility] 07/17/2025/ 5 [id number] [facility] HospitalBuild ing:HELDER [facility] 07/17/2025/ 5 [id number] [facility] HospitalBuild ing:KANDACE [facility] 07/14/2025/ 5 [id number] Ambulatory [facility] HospitalBuild ing:ANGELICA [facility] 06/03/2025/ 5 [id number] Ambulatory [facility] HospitalBuild ing:MANUEL [facility] 05/06/2025/ 5 [id number] Ambulatory [facility] HospitalBuild ing:HELDER [facility] 05/06/2025/ 5 [id number] Ambulatory [facility] HospitalBuild ing:MANUEL [facility] 04/17/2025/ 5 [id number] Ambulatory [facility] HospitalBuild ing:KANDACE [facility] 02/19/2025/ 5 [id number] Ambulatory [facility] HospitalBuild ing:WOUC [facility] 02/18/2025/ 5 [id number] Ambulatory [facility] HospitalBuild ing:WOIA [facility] 02/17/2025/ 5 [id number] Ambulatory [facility] HospitalBuild ing:WOLB [facility] 02/04/2025/ 5 [id number] Ambulatory [facility] HospitalBuild ing:GERIWR [facility] 01/24/2025 [id number] Ambulatory [id number] lding:[facility] 12/23/2024/ 5 [id number] Ambulatory [facility] HospitalBuild ing:WOUR [facility] 12/10/2024/ 5 [id number] Ambulatory [facility] HospitalBuild ing:GERIWR [facility] 11/17/2024/ 4 [id number] Ambulatory [facility] HospitalBuild ing:WOL2 [facility] 11/05/2024/ 4 [id number] Ambulatory [facility] HospitalBuild ing:WOIA [facility] PAYERS ENCOUNTER GUARANTOR PAYER SUBSCRIBER SOURCE 07/27/2025 MICHAELA UMANA: [id number] [address] [place], [place] [address]Qmr: (HP) Primary Insurance:[facility] MEDICARE SOLUTION INSCOPolicy Number: [id number] Date:7786-25-35Vqvb Name:ANDRIA [place], [place] [address]DE: MICHAELA WYATTB: [id number] [address] [place], [place] [address]Nwo: (HP) (WP) [facility] 07/17/2025 Primary Insurance:[facility] MEDICARE ADVANTAGE PPOPolicy Number: [id number] Date:0111-17-31Bvcn Name:Janae MICHAELA LYNDSAY: [id number] [place] [address] [facility] 07/17/2025 Primary Insurance:[facility] MEDICARE ADVANTAGE PPOPolicy Number: [id number] Date:7614-69-73Hvqy Name:Janae SCHNEIDERB: [id number] [place] [address] [facility] 07/14/2025 Primary Insurance:[facility] MEDICARE ADVANTAGE PPOPolicy Number: [id number] Date:9514-15-33Fvcy Name:Janae SCHNEIDERB: [id number] [place] [address] [facility] 06/03/2025 Primary Insurance:[facility] MEDICARE ADVANTAGE PPOPolicy Number: [id number] Date:5317-54-58Ldbo Name:Janae SCHNEIDERMorena: [id number] [place] [address] [facility] 05/06/2025 Primary Insurance:[facility] MEDICARE ADVANTAGE PPOPolicy Number: [id number] Date:6730-12-29Hufm Name:Janae SCHNEIDERMorena: [id number] [place] [address] [facility] 05/06/2025 Primary Insurance:[facility] MEDICARE ADVANTAGE PPOPolicy Number: [id number] Date:4179-67-42Nmjd Name:Janae SCHNEIDERB: [id number] [place] [address] [facility] 04/17/2025 Primary Insurance:[facility] MEDICARE ADVANTAGE PPOPolicy Number: [id number] Date:7477-91-98Xpjn Name:Janae SCHNEIDERB: [id number] [place] [address] [facility] 02/19/2025 Primary Insurance:[facility] MEDICARE ADVANTAGE PPOPolicy Number: [id number] Date:9196-64-91Nmwy Name:Janae UMANA: [id number] [place] [address] [facility] 02/18/2025 Primary Insurance:[facility] MEDICARE ADVANTAGE PPOPolicy Number: [id number] Date:2148-87-52Pyig Name:Janae UMANA: [id number] [address] [place], [place] [address] [place] [address] 02/17/2025 Primary Insurance:[facility] MEDICARE ADVANTAGE PPOPolicy Number: [id number] Date:9932-18-53Lmgm Name:Janae UMANA: [id number] [address] [place], [place] [address] [place] [address] 02/04/2025 Primary Insurance:[facility] MEDICARE ADVANTAGE PPOPolicy Number: [id number] Date:6173-57-10Uqfn Name:Janae UMANA: [id number] [address] [place], [place] [address] [place] [address] 01/24/2025 Primary Insurance:[facility] MEDICARE ADVANTAGE PPOPolicy Number: [id number] Date:6871-89-43Iamd Name:Janae UMANA: [id number] [address] [place], [place] [address] [place] [address] 12/23/2024 Primary Insurance:[facility] MEDICARE ADVANTAGE PPOPolicy Number: [id number] Date:2149-92-27Wadj Name:Jnaae UMANA: [id number] [address] [place], [place] [address] [place] [address] 12/10/2024 Primary Insurance:[facility] MEDICARE ADVANTAGE PPOPolicy Number: [id number] Date:6112-88-44Eoef Name:Janae UMANA: [id number] [place] [address] [facility] 11/17/2024 Primary Insurance:[employer] MEDICARE ADVANTAGE OPolicy Number: [id number] Date:8235-83-23Gkln Name:Janae JENNINGS LYNDSAY: [id number] [place] [address] [facility] 11/05/2024 Primary Insurance:[employer] MEDICARE ADVANTAGE PPOPolicy Number: [id number] Date:7433-09-72Qpde Name:Janae JENNINGS LYNDSAY: [id number] [place] [address] [facility]
[2025-08-17 10:52] VITALS: BP 129/65; PULSE 62; RESP 16; TEMP 36.4; O2SAT 100
--- NOTE | 2025-08-17 11:22 | EDS_ITS ---
HPI History of Present Illness Chief Complaint: Confusion Informant: patient and family (Daughter at bedside who is power of collections attorney.) Onset/Context/Timing Onset: Today and Yesterday Context: Gradual Onset Timing: Continuous Current Severity: Mild Maximum Severity: Mild Narrative Narrative: 85-year-old female history of hypertension, UTIs, dementia and prior hip fracture. Daughter is concerned she may have a recurrent UTI. She has a chronic indwelling Lizarraga catheter due to urinary retention. Recently she has b een more confused and having hallucinations. No recent falls or head injury. No nausea or vomiting. No fever or chills. Prior similar symptoms: Yes Recent Illness/Hospitalization: Yes [facility] Medical History Abnormal finding on urinalysis
--- NOTE | 2025-08-17 11:22 | EX.ED.DYSGE1 ---
HPI History of Present Illness Chief Complaint: Confusion Informant: patient and family (Daughter at bedside who is power of attorney at law.) Onset/Context/Timing Onset: Today and Yesterday Context: Gradual Onset Timing: Continuous Current Severity: Mild Maximum Severity: Mild Narrative Narrative: 85-year-old female history of hypertension, UTIs, dementia and prior hip fracture. Daughter is concerned she may have a recurrent UTI. She has a chronic indwelling Lizarraga catheter due to urinary retention. Recently she has been more confused and having hallucinations. No recent falls or head injury. No nausea or vomiting. No fever or chills. Prior similar symptoms: Yes Recent Illness/Hospitalization: Yes [facility] Medical History Abnormal finding on urinalysis Generalized weakness Fall Closed intertrochanteric fracture of left hip Fall Hypothyroidism Anxiety Dementia Self-catheterizes urinary bladder Hypertension Back pain Home Medications Medication Instructions Recorded Last Taken Type ascorbic acid (vitamin C) 500 mg 500 mg PO DAILY supplement 03/01/25 08/17/25 History tablet (C-500) donepezil 10 mg tablet 10 mg PO DAILY dementia 03/01/25 08/17/25 History levothyroxine 50 mcg tablet 50 mcg PO DAILY thyroid 03/01/25 08/17/25 History trazodone 50 mg tablet 50 mg PO QHS anxiety 03/01/25 08/16/25 History buspirone 5 mg tablet 5 mg PO BID 06/20/25 08/17/25 History cholecalciferol (vitamin D3) 125 125 mcg PO DAILY 06/20/25 08/17/25 History mcg (5,000 unit) capsule citalopram 20 mg tablet 20 mg PO DAILY 07/22/25 08/17/25 History furosemide 20 mg tablet 20 mg PO .COMPLEX PRN swelling 07/22/25 Unknown History acetaminophen 500 mg tablet 1,000 mg PO Q8 PRN fever or pain 08/17/25 Unknown History clonazepam 0.5 mg tablet 0.5 mg PO Q8H PRN anxiety 08/17/25 08/16/25 History nitrofurantoin 100 mg PO BID uti 10 days #20 caps 08/17/25 Unknown Rx monohydrate/macrocrystals 100 mg capsule (Macrobid) Allergy/AdvReac Type Severity Reaction Status Date / Time No Known Allergies Allergy Verified 07/31/25 18:08 Family History Other Hypertension Surgical History H/O: hysterectomy Status post right knee replacement Social History household members: none housing: apartment current occupational status: retired other: Daughter lives a few doors down helps her on a regular basis Smoking Status: Never smoker alcohol intake: never substance use type: does not use ROS ROS ED ROS Narrative No recent illness. More confused. Constitutional Constitutional ED: Denies chills or fever(s) Eyes Eyes: Denies blurry vision ENT ENT ED: Denies ear pain Cardiovascular Cardiovascular: Denies chest pain Respiratory/Chest Respiratory/Chest: Denies cough or dyspnea Gastrointestinal Gastrointestinal: Denies abdominal pain Genitourinary Genitourinary ED: Reports other Details: Chronic indwelling Lizarraga catheter. ; Denies dysuria, hematuria or urinary frequency Musculoskeletal Musculoskeletal: Denies arthralgias or back pain Integumentary Denies abscess or Abrasions Neurologic Neurologic: Denies headache(s) Psychiatric Psychiatric: Denies anxiety or depression Endocrine Endocrinology: Denies cold intolerance Hematologic/Lymphatic Hematologic/Lymphatic: Reports none Allergic/Immunologic Allergic/Immunologic ED: Denies mouth swelling, tongue swelling or urticaria EXAM Physical Exam Narrative Exam Narrative: 85-year-old female sitting upright in bed. Vital signs stable afebrile. Pulse ox 9% on room air no signs hypoxia. Patient no distress. Family at bedside. H EENT exam pupils round react light. Moist mutes membranes. Neck nontender no JVD. No lymphadenopathy. Back nontender. Lungs clear to auscultation. Heart regular rhythm no murmur rate about 60. Chest wall ribs nontender. Abdomen soft nontender. No peritoneal signs. Moving all 4 extremities. 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 Normal dorsi plantarflexion. Nontender no edema. Neurologically she is awake alert. Answering questions. Follows commands. She does have dementia. Has some confusion. No focal motor deficits. She has a chronic indwelling Lizarraga catheter. The urine is mildly cloudy. There is no gross blood. Const Vital Signs: 08/17/25 10:52 08/17/25 12:52 08/17/25 14:00 Temperature 97.6 F L Temperature Source Oral Pulse Rate 62 54 L 49 L Respiratory Rate 16 12 14 Blood Pressure 129/65 H 137/64 H 156/72 H Blood Pressure Mean 86 88 100 Pulse Ox 100 98 100 Oxygen Delivery Method Room Air Room Air Room Air 08/17/25 15:53 Temperature 98 F Temperature Source Pulse Rate 83 Respiratory Rate 14 Blood Pressure 114/96 H Blood Pressure Mean 102 Pulse Ox 99 Oxygen Delivery Method Positive well nourished and well developed; Negative for cachectic, contractures or unkempt General Appearance ED: well developed and NAD; Negative for unkempt, cachectic, contractures, cyanotic, diaphoretic or pallor Nutritional Appearance: Negative for cachectic HEENT Reports moist mucous membranes Negative for trauma or tenderness Eyes PERRL and EOMs intact bilaterally Neck no lymphadenopathy, supple and no JVD Chest Wall inspection of chest normal and palpation of chest normal Resp normal respiratory effort and clear to auscultation bilaterally Cardio regular rate, regular rhythm, S1 normal heart sound, S2 normal heart sound and no murmurs GI normal to inspection, nondistended, normoactive bowel sounds, non-tender, non-distended and no masses Auscultation: normoactive bowel sounds Palpation: soft; Negative for tender, guarding, splenomegaly, mass or rebound tenderness present Back/Spine no CVA tenderness General Back: Negative for CVA tenderness Cervical Spine: Negative for cervical spine tenderness Thoracic Spine / Upper Back: Negative for thoracic spinal tenderness or paraspinal muscle tenderness Lumbar Spine / Lower Back: Negative for lumbar spinal tenderness Extremity normal to inspection General Extremety ED: Negative for edema or tenderness General Extremity: Negative for edema Neuro No oriented x3 and CN's II-XII intact bilaterally Neuro Narrative: Awake alert. Baseline confusion. Dementia. Answering questions. Following commands. Sensorium / Orientation: alert Motor Exam: strength 5/5 throughout Psych mental status grossly normal Appearance: Negative for unkempt Skin no rashes or lesions noted, no wounds and skin turgor normal General Skin Exam: Negative for jaundice or pallor Lesions: No lesion noted Rashes: No rashes noted Trauma: Negative for abrasion Wounds: Negative for wounds noted MDM MDM MDM Narrative Medical decision making narrative: 85-year-old female possible UTI. Exam benign. UA and screening labs to be obtained. Repeat exam at 3:47 PM patient doing well. Unchanged. Discussed test results with patient and daughter. I looked at her last few urine cultures they were sensitive to multiple different antibiotics. She will be started on Macrobid twice a day for 10 days. First dose given here. Urine culture be sent. Discussed all this with the daughter she is comfortable with the plan. Outpatient follow-up. History & Record Review Discussion w/independent historian: Patient and Family Additional record(s) reviewed:: Prior inpatient record, Prior outpatient record, Prior ED visit and Prior labs Lab Data Attestation: I reviewed the patient's lab results. Lab results narrative: CBC shows a white count [place] 0.7. H&H 13 and 39. Platelets 193. Electrolytes show a gap of 11. BUN and creatinine are normal at 18 and 0.8. Glucose is 68. Urinalysis cloudy. Positive nitrates. Greater than 100 white cells. 3+ bacteria. Treated for UTI. Urine culture be sent. Labs: Laboratory Results - last 24 hr 08/17/25 08/17/25 11:45 12:00 WBC 11.7 H RBC 4.51 Hgb 13.5 Hct 39.9 MCV 88.5 MCH 29.9 MCHC 33.8 RDW Std Deviation 43.8 RDW Coeff of Leslie 13.6 Plt Count 193 MPV 10.1 Immature Gran % (Auto) 0.500 Neut % (Auto) 83.7 H Lymph % (Auto) 9.1 L Rowan % (Auto) 5.3 Eos % (Auto) 0.9 Baso % (Auto) 0.5 Absolute Neuts (auto) 9.8 H Absolute Lymphs (auto) 1.06 Nucleated RBC % 0 Sodium 142 Potassium 3.5 Chloride 105 Carbon Dioxide 25.5 Anion Gap 11 BUN 18 Creatinine 0.82 Est GFR (MDRD) Non-Af 70 BUN/Creatinine Ratio 22.2 H Glucose 68 L Calcium 9.2 Urine Color Yellow Urine Clarity Cloudy Urine pH 6.0 Ur Specific [place] 1.020 Urine Protein 30 H Urine Glucose (UA) Normal Urine Ketones Negative Urine Occult Blood 150 H Urine Nitrite Positive H Urine Bilirubin Negative Urine Urobilinogen Normal Ur Leukocyte Esterase 500 H Urine RBC 0 SEEN Urine WBC >100 SEEN Ur Squamous Epith Cells 0 SEEN Calcium Oxalate Crystal 1+ Urine Bacteria 3+ Urine Mucus 0 SEEN Discharge Plan Triage Chief Complaint: Confusion ED Provider: Domingo Darby Dx/Rx/DC Orders Clinical Impression: Acute UTI, Dementia, Hypertension Instructions: UTIs Prescriptions: New nitrofurantoin monohyd/m-cryst [Macrobid] 100 mg capsule 100 mg PO BID 10 Days Qty: 20 0RF Rx Instructions: must administer with a meal/food No Action buspirone 5 mg tablet 5 mg PO BID cholecalciferol (vitamin D3) 125 mcg (5,000 unit) capsule 125 mcg PO DAILY citalopram 20 mg tablet 20 mg PO DAILY furosemide 20 mg tablet 20 mg PO .COMPLEX PRN (Reason: swelling) Rx Instructions: 20 mg orally 2xw PRN; trazodone 50 mg tablet 50 mg PO QHS donepezil 10 mg tablet 10 mg PO DAILY levothyroxine 50 mcg tablet 50 mcg PO DAILY ascorbic acid (vitamin C) [C-500] 500 mg tablet 500 mg PO DAILY clonazepam 0.5 mg Tablet 0.5 mg PO Q8H PRN (Reason: anxiety) Rx Instructions: family states only taking at hs acetaminophen 500 mg Tablet 1,000 mg PO Q8 PRN (Reason: fever or pain) Primary Care Provider: Anaid Luna Referrals: Anaid Luna MD [Primary Care Provider, Internal Medicine] - 1 Week Activity Restrictions/Additional Instructions: UTI again. Urine culture will be sent. Started on the antibiotic Macrobid 1 pill twice a day for 10 days. Follow-up with your doctor to ensure you are improving. Plenty of fluids and rest. Return if worse. Print Language: Belarusian Disposition Disposition: Home, Self Care
[2025-08-17 11:51] LABS: Mucous, Urine 0 SEEN /hpf (<or=2+); Red Blood Cells-Urine 0 SEEN /hpf (0-5); Squamous Epithelial Cells - UA 0 SEEN /hpf (5-10)
[2025-08-17 12:06] LABS: Color, Urine Yellow (Yellow); Glucose, Dipstick Normal (Normal); Ketone-Dipstick Negative (Negative); Leukocyte Esterase-Dipstick 500 /ul (Negative); Nitrite-Dipstick Positive (Negative); Occult Blood-Urine 150 /ul (Negative); Protein-Dipstick 30 mg/dl (Negative); Specific Gravity, Urine 1.020 (1.002-1.030); Urine Bilirubin Dipstick Negative (Negative)
[2025-08-17 12:12] LABS: Hematocrit 39.9 % (37-47); Hemoglobin 13.5 g/dL (12.0-15.0); Immature Granulocytes Count 0.060 X10^3/uL (0.0-0.0); Mean Corp Hgb Conc 33.8 g/dL (32-36); Mean Corpuscular Volume 88.5 fL (81-99); Mean Platelet Vol. 10.1 fl (6.2-12.0); NRBC Flagged by Analyzer 0 % (0-5); Platelet Count 193 K/mm3 (150-450); RBC Distribution Width CV 13.6 % (11.6-14.6); RBC Distribution Width SD 43.8 fl (35.1-43.9); Red Blood Count 4.51 M/mm3 (4.2-5.4); White Blood Count 11.7 K/mm3 (4.4-11.0)
[2025-08-17 12:18] LABS: Calcium Oxalate Crystals Ur 1+ /hpf (<or=2+)
[2025-08-17 12:30] LABS: Anion Gap 11 (5-15); BUN 18 mg/dL (4-19); BUN/Creat Ratio 22.2 RATIO (10-20); Calcium,Total 9.2 mg/dL (7.6-11.0); Carbon Dioxide 25.5 mmol/L (21.0-32.0); Chloride 105 mmol/L (98-108); Glucose 68 mg/dL (70-99); Potassium 3.5 mmol/L (3.3-5.1)
[2025-08-17 12:52] VITALS: BP 137/64; PULSE 54; RESP 12; O2SAT 98
[2025-08-17 14:00] VITALS: BP 156/72; PULSE 49; RESP 14; O2SAT 100
[2025-08-17 15:53] VITALS: BP 114/96; PULSE 83; RESP 14; TEMP 36.6; O2SAT 99
== END 2025-08-17 16:10 | disposition home or self-care (01) ==
PROVIDERS: Emergency Provider Emergency Medicine; PCP Internal Medicine; Visit Provider Emergency Medicine
DX: N39.0 Urinary tract infection, site not specified (principal); F03.90 Unspecified dementia, unspecified severity, without behavioral disturbance, psychotic disturbance, mood disturbance, and anxiety; I10 Essential (primary) hypertension; Z79.899 Other long term (current) drug therapy
CPT/HCPCS: 80048; 81001; 82962; 85025; 87077; 87086; 87088; 87186; 99283

== ENCOUNTER 2025-09-02 10:15 | Outpatient (RCR) | payer MEDICARE, SELFPAY ==
[2025-08-26 10:45] VITALS: BP 134/63; PULSE 55; RESP 18; TEMP 36.3
--- NOTE | 2025-08-26 12:37 | PCM.WC.PN ---
History of Present Illness Date of Service: 08/26/25 Chief Complaint: Follow-up on her bilateral buttocks open wounds from pressure. History of Wound: 84-year-old white female that apparently had fallen back in February and broke her hip had surgery went to a alf for rehab until about a week and a half ago and now lives with her daughter and son-in-law. He is the head of the [facility] and has brought her in today. He states she has a little bit of dementia but she does walk with her walker when prodded and eats okay and has been eating drinking boost at least once a day. 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 She also has incontinence of stool which is apparent on exam. She has a butterfly shaped open wound on her buttocks right and left into the coccyx. Son-in-law is not sure if this started in the hospital or at the alf but she was getting zinc oxide on her buttocks. They do not have a special mattress for her on her bed she does sit on a doughnut on her chair. Progress of Wound: The left side of the buttocks is completely healed to the right side of the buttocks that just is a small superficial opening now with some depth but she is much improved much smaller than what it was. She missed 2 weeks so her week behind and care she does have home health care that comes in and they have been helping with the dressing changes also. Patient is compliant with staying off and offloading Subjective Subjective Son-in-law and patient have been appreciative to care and approve plan Objective Data Objective Data No sign of infection wound is measuring smaller but she still has a little bit of depth in the center we will continue with the Aquacel extra and cover with absorbent dressing. Vital Signs: Vital Signs Temp Pulse Resp BP 97.3 F L 55 L 18 134/63 H 08/26/25 10:45 08/26/25 10:45 08/26/25 10:45 08/26/25 10:45 Lab / Micro Data Attestation: I reviewed the patient's lab results. Lab results narrative: Shows no sign of anemia and kidney functions are very good. Physical Exam Const General Appearance: cooperative HEENT normocephalic Face and Sinus: normal facial exam External Ear: external ears normal Eyes PERRL General Eye: normal appearance of both eyes Neck full ROM General: normal visual inspection Resp normal respiratory effort Cardio regular rate and regular rhythm Palpation: normal PMI Rate: regular rate Rhythm: regular rhythm external exam normal Back/Spine Cervical Spine: cervical ROM normal Thoracic Spine / Upper Back: normal to inspection Lumbar Spine / Lower Back: normal to inspection Extremity normal to inspection Skin Wounds: wounds noted Wound Narrative: Butterfly shaped open wound superficial on bilateral right and left buttocks and sacral area Psych Appearance: grossly normal Speech: normal speech Debridement Note Debridement Note Wound debrided: buttocks Laterality: Left Wound Grade/Stage: Stage II Type of Debridement: Excisional debridement Anesthesia Used: 5% Lidocaine Gel Depth: in the subcutaneous layer Percentage of wound debrided: 100 Instrument Used: 5mm curette Tissue Removed: Fibrin Severity: Limited To Skin Breakdown Amount of bleeding with debridement: Mild Bleeding Controlled with: Compression and gauze Patient tolerated procedure: Patient tolerated procedure well Post-Debridement Measurements and Additional Note: Post-Debridement Measurements/Treatment - Nurse 1 - General Ulcer Assessment Start: 08/26/25 10:45 Freq: Status: Active Protocol: [email or web address] Activity Type Activity Date Activity User E-sign Co-sign Detail Recorded Client Recorded Date Recorded By Document 08/26/25 10:45 [id number] 08/26/25 10:48 RB 08/26/25 10:45 - Today's Visit Information Type of service Follow-up Visit (Physician/INTAKE COUNSELOR ) Arrival Mode Ambulatory Transfer Assistance None Patient Identification Verified (Name & Yes ) Patient Requires Transmission-Based No Precautions Vital Signs Temperature (97.8 F-99.1 F) 97.3 F L Temperature Source Temporal Pulse Rate (60-100) 55 L Pulse Location Monitor Respiratory Rate (12-18) 18 Respiratory rate source Observation Blood Pressure (90/60-120/80) 134/63 H Blood Pressure Mean (mm Hg) 86 Source Monitor Position Semi-Fowlers Blood Pressure Location Left Arm History Since Last Visit- (Skip if this is Patient's initial visit) Have you changed medications since your No last visit? Any new allergies or adverse reactions No Had a fall/change in ADL's that may No increase risk of falls Signs or symptoms of abuse and/or No neglect since last visit Have you been in the hospital since your No last visit? Has dressing in place as prescribed Yes Has compression in place as prescribed N/A Has offloadiing in place as prescribed N/A Experienced any changes in pain level or No management Left Footwear Regular Shoe Right Footwear Regular Shoe Pain Scale: 0-10 Numeric Is Patient Pain Free? Yes - Nurse 1 - General Ulcer Measurement Start: 08/26/25 10:45 Freq: Status: Active Protocol: Activity Type Activity Date Activity User E-sign Co-sign Detail Recorded Client Recorded Date Recorded By Document 08/26/25 10:45 RB [id number] 08/26/25 10:48 RB 08/26/25 10:45 Wound Center Nurse 1 1. RIGHT/LEFT BUTTOCK CLUSTER -Combined with other wound No -Current Size (cm) - Length 1.4 -Current Size (cm) - Width 0.8 -Current Size (cm) - Depth 0.2 -Total Square Cm 1.12 -Photo Taken Yes -Tunneling No -Undermining/Tunneling No -Circular Undermining No -Exudate Amt Medium -Exudate Type Serosanguineous -Wound Margin Distinct, Outline Attached -Granulation Amt Medium (34-66%) -Granulation Quality [place] -Slough/Fibrin Yes -Necrosis Amt Medium (34-66%) -Necrotic Tissue Type Adherent Slough -Structure Exposed N/A -Texture (Hillary-wound Skin Appearance) Assessed -Moisture (Hillary-wound Skin Appearance) Assessed -Color (Hillary-wound Skin Appearance) Assessed -Temperature (Hillary-wound Skin No Abnormality Appearance) (Pt Warm) -Tenderness on Palpation (Hillary-wound No Skin Appearance) -Ulcer Cleansing Wound Cleanser -Foul Odor after Cleansing No -Anesthetic Used 5% Lidocaine Gel - Nurse 2 - General Ulcer CM Notes Start: 08/26/25 10:45 Freq: Status: Active Protocol: Activity Type Activity Date Activity User E-sign Co-sign Detail Recorded Client Recorded Date Recorded By Document 08/26/25 11:07 DS [id number] 08/26/25 11:09 DS 08/26/25 11:07 Wound Center Nurse 2 -Time 11:07 -Correct Patient Yes -Correct Side, Site, Position Yes -Correct Procedure Yes -Procedure Performed Yes -Type of Procedure Debridement -Clinical Debridement Subcutaneous -Tissue Removed Subcutaneous -Post Debridement (cm) - Length 1.0 -Post Debridement (cm) - Width 1.0 -Post Debridement (cm) - Depth 0.2 -Total Square (Post) (cm) 1.00 -Area of Debridement (cm) - Length 1.0 -Area of Debridement (cm) - Width 1.0 -Total Square (Area) (cm) 1.00 -Tunneling No -Undermining/Tunneling No -Circular Undermining No -Wound/Ulcer Outcome Not Healed -Ulcer Cleansing Rinsed/ Irrigated with Saline -Foul Odor after Cleansing No -Bioengineered Tissue No -Bleeding Controlled with Pressure -Treatment Response Procedure Tolerated Well -Debridement - Subq, 1st 20sq cm Yes Pain Scale: 0-10 Numeric Is Patient Pain Free? Yes WC - Nurse 3 - General Ulcer D/C NN Start: 08/26/25 10:45 Freq: Status: Active Protocol: Activity Type Activity Date Activity User E-sign Co-sign Detail Recorded Client Recorded Date Recorded By Document 08/26/25 11:31 ML [id number] 08/26/25 11:31 ML 08/26/25 11:31 Wound Care Center Nurse 3 1. RIGHT/LEFT BUTTOCK CLUSTER -Ulcer Cleansing Rinsed/ Irrigated with Saline -Primary Dressing Applied Aquacel Extra, Silicone Border Foam AG 3.6x4 -Aquacel Extra 1 -Silicone Border Foam AG 3.6x4 1 Pain Scale: 0-10 Numeric Is Patient Pain Free? Yes Assessment/Plan Assessment/Plan (1) Urinary retention: CODE(S): R33.9 - Retention of urine, unspecified (2) Fecal incontinence: CODE(S): R15.9 - Full incontinence of feces QUALIFIERS: Fecal incontinence type: unspecified Qualified Code(s): R15.9 - Full incontinence of feces (3) Decubitus ulcer of buttock, stage 2: CODE(S): L89.302 - Pressure ulcer of unspecified buttock, stage 2 QUALIFIERS: Laterality: right Qualified Code(s): L89.312 - Pressure ulcer of right buttock, stage 2 PLAN: Wash buttocks and sacral area with antibacterial soap and water apply Aquacel extra to wound base moistened and then cover with a ABD pad daily and as needed if Becomes soiled Follow-up in 1 week Continue to rotate in bed every hour. Offload is much as possible with a Roho pad under her buttocks when seated in chairs Encourage patient to move frequently and walk increase food intake with protein and 60 g of protein a day. Patient did like the Shashi and started taking it daily (4) Decubitus ulcer of sacral area: CODE(S): L89.159 - Pressure ulcer of sacral region, unspecified stage QUALIFIERS: Pressure injury stage: stage 2 Qualified Code(s): L89.152 - Pressure ulcer of sacral region, stage 2 (5) Decubitus ulcer of left buttock, stage 2: CODE(S): L89.322 - Pressure ulcer of left buttock, stage 2
--- NOTE | 2025-08-27 09:29 | WC ---
PHOTO-RIGHT BUTTOCK 08/26/25
[2025-09-02 10:35] VITALS: BP 134/57; RESP 18; TEMP 35.8
--- NOTE | 2025-09-02 11:36 | PCM.WC.PN ---
History of Present Illness Date of Service: 09/02/25 Chief Complaint: Follow-up on her bilateral buttocks open wounds from pressure. History of Wound: 84-year-old white female that apparently had fallen back in February and broke her hip had surgery [facility] to a [facility] for [facility] until about a week and a half ago and now lives with her daughter and son-in-law. He is the head of the [facility] department and has brought her in today. He states she has a little bit of dementia but she does walk with her walker when prodded and eats okay and has been eating drinking boost at least once a day. 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 She also has incontinence of stool which is apparent on exam. She has a butterfly shaped open wound on her buttocks right and left into the coccyx. Son-in-law is not sure if this started in the hospital or at the [facility] but she was getting zinc oxide on her buttocks. They do not have a special mattress for her on her bed she does sit on a doughnut on her chair. Progress of Wound: The left side of the buttocks is completely healed to the right side of the buttocks that just is a small superficial opening now with some depth but she is much improved much smaller than what it was. The son-in-law states that she does have home health that is taking care of her catheter and they also do the wound care which is helping him out. Subjective Subjective Patient states it does not hurt her anymore and it must be really small Objective Data Objective Data The area around it looks a little bit contused but it does not open bigger or deeper it is measuring smaller bleeds easily we will continue with the Aquacel extra and absorbent dressing daily and follow-up in 2 weeks Vital Signs: Vital Signs Temp Pulse Resp BP O2 Del Method 96.5 F L 55 L 18 134/57 H Room Air 09/02/25 10:35 08/26/25 10:45 09/02/25 10:35 09/02/25 10:35 09/02/25 10:35 Oxygen Delivery Method Room Air Physical Exam Const General Appearance: cooperative HEENT normocephalic Face and Sinus: normal facial exam External Ear: external ears normal Eyes PERRL General Eye: normal appearance of both eyes Neck full ROM General: normal visual inspection Resp normal respiratory effort Cardio regular rate and regular rhythm Palpation: normal PMI Rate: regular rate Rhythm: regular rhythm external exam normal Back/Spine Cervical Spine: cervical ROM normal Thoracic Spine / Upper Back: normal to inspection Lumbar Spine / Lower Back: normal to inspection Extremity normal to inspection Skin Wounds: wounds noted Wound Narrative: Butterfly shaped open wound superficial on bilateral right and left buttocks and sacral area Psych Appearance: grossly normal Speech: normal speech Debridement Note Debridement Note Wound debrided: buttocks Laterality: Right Wound Grade/Stage: Stage II Type of Debridement: Excisional debridement Anesthesia Used: 5% Lidocaine Gel Depth: Down to and including healthy tissue and in the subcutaneous layer Percentage of wound debrided: 100 Instrument Used: 5mm curette Tissue Removed: Fibrin Severity: Fat Layer Exposed Amount of bleeding with debridement: Mild Bleeding Controlled with: Compression and gauze Patient tolerated procedure: Patient tolerated procedure well Post-Debridement Measurements and Additional Note: Post-Debridement Measurements/Treatment - Nurse 1 - General Ulcer Assessment Start: 08/26/25 10:45 Freq: Status: Active Protocol: DEYANIRA Activity Type Activity Date Activity User E-sign Co-sign Detail Recorded Client Recorded Date Recorded By Document 08/26/25 10:45 RB [id number] 08/26/25 10:48 RB Document 09/02/25 10:35 DS [id number] 09/02/25 10:43 DS 08/26/25 09/02/25 10:45 10:35 - Today's Visit Information Type of service Follow-up Visit Follow-up Visit (Physician/LEAD PROGRAMMER (Physician/LEAD PROGRAMMER ) ) Arrival Mode Ambulatory Ambulatory, Walker Transfer Assistance None Patient Identification Verified (Name & Yes Yes ) Patient Requires Transmission-Based No No Precautions Safety Precautions Fall Prevention Vital Signs Temperature (97.8 F-99.1 F) 97.3 F L 96.5 F L Temperature Source Temporal Temporal Pulse Rate (60-100) 55 L Pulse Location Monitor Monitor Respiratory Rate (12-18) 18 18 Respiratory rate source Observation Observation Oxygen Delivery Method Room Air Blood Pressure (90/60-120/80) 134/63 H 134/57 H Blood Pressure Mean (mm Hg) 86 82 Source Monitor Monitor Position Semi-Fowlers Semi-Fowlers Blood Pressure Location Left Arm Left Arm History Since Last Visit- (Skip if this is Patient's initial visit) Have you changed medications since your No No last visit? Any new allergies or adverse reactions No No Had a fall/change in ADL's that may No No increase risk of falls Signs or symptoms of abuse and/or No No neglect since last visit Have you been in the hospital since your No No last visit? Has dressing in place as prescribed Yes Yes Has compression in place as prescribed N/A N/A Has offloadiing in place as prescribed N/A N/A Experienced any changes in pain level or No No management Left Footwear Regular Shoe Regular Shoe Right Footwear Regular Shoe Regular Shoe Pain Scale: 0-10 Numeric Is Patient Pain Free? Yes Yes WC - Nurse 1 - General Ulcer Measurement Start: 08/26/25 10:45 Freq: Status: Active Protocol: Activity Type Activity Date Activity User E-sign Co-sign Detail Recorded Client Recorded Date Recorded By Document 08/26/25 10:45 RB [id number] 08/26/25 10:48 RB Document 09/02/25 10:35 DS [id number] 09/02/25 10:43 DS 08/26/25 09/02/25 10:45 10:35 Wound Center Nurse 1 1. RIGHT/LEFT BUTTOCK CLUSTER -Combined with other wound No -Current Size (cm) - Length 1.4 0.9 -Current Size (cm) - Width 0.8 0.6 -Current Size (cm) - Depth 0.2 0.1 -Total Square Cm 1.12 0.54 -Photo Taken Yes No -Tunneling No No -Undermining/Tunneling No No -Circular Undermining No No -Exudate Amt Medium Small -Exudate Type Serosanguineous Serosanguineous -Wound Margin Distinct, Distinct, Outline Outline Attached Attached -Granulation Amt Medium (34-66%) Large (67-100%) -Granulation Quality [place] -Slough/Fibrin Yes -Necrosis Amt Medium (34-66%) -Necrotic Tissue Type Adherent Slough -Structure Exposed N/A -Texture (Hillary-wound Skin Appearance) Assessed Assessed -Moisture (Hillary-wound Skin Appearance) Assessed Assessed -Color (Hillary-wound Skin Appearance) Assessed Assessed -Temperature (Hillary-wound Skin No Abnormality No Abnormality Appearance) (Pt Warm) (Pt Warm) -Tenderness on Palpation (Hillary-wound No No Skin Appearance) -Ulcer Cleansing Wound Cleanser Soap and Water -Foul Odor after Cleansing No No -Anesthetic Used 5% Lidocaine 5% Lidocaine Gel Gel - Nurse 2 - General Ulcer CM Notes Start: 08/26/25 10:45 Freq: Status: Active Protocol: Activity Type Activity Date Activity User E-sign Co-sign Detail Recorded Client Recorded Date Recorded By Document 08/26/25 11:07 DS [id number] 08/26/25 11:09 DS Document 09/02/25 10:56 DS [id number] 09/02/25 10:56 DS 08/26/25 09/02/25 11:07 10:56 Wound Center Nurse 2 1. RIGHT/LEFT BUTTOCK CLUSTER -Time 11:07 10:56 -Correct Patient Yes Yes -Correct Side, Site, Position Yes Yes -Correct Procedure Yes Yes -Procedure Performed Yes Yes -Type of Procedure Debridement Debridement -Clinical Debridement Subcutaneous Subcutaneous -Tissue Removed Subcutaneous Subcutaneous -Post Debridement (cm) - Length 1.0 0.8 -Post Debridement (cm) - Width 1.0 0.3 -Post Debridement (cm) - Depth 0.2 0.2 -Total Square (Post) (cm) 1.00 0.24 -Area of Debridement (cm) - Length 1.0 0.8 -Area of Debridement (cm) - Width 1.0 0.3 -Total Square (Area) (cm) 1.00 0.24 -Tunneling No No -Undermining/Tunneling No No -Circular Undermining No No -Wound/Ulcer Outcome Not Healed Not Healed -Ulcer Cleansing Rinsed/ Rinsed/ Irrigated with Irrigated with Saline Saline -Foul Odor after Cleansing No No -Bioengineered Tissue No No -Bleeding Controlled with Pressure Pressure -Treatment Response Procedure Procedure Tolerated Well Tolerated Well -Debridement - Subq, 1st 20sq cm Yes Yes Pain Scale: 0-10 Numeric Is Patient Pain Free? Yes Yes HARRY - Nurse 3 - General Ulcer D/C NN Start: 08/26/25 10:45 Freq: Status: Active Protocol: Activity Type Activity Date Activity User E-sign Co-sign Detail Recorded Client Recorded Date Recorded By Document 08/26/25 11:31 ML [id number] 08/26/25 11:31 ML Document 09/02/25 11:09 RB [id number] 09/02/25 11:10 RB 08/26/25 09/02/25 11:31 11:09 Wound Care Center Nurse 3 1. RIGHT/LEFT BUTTOCK CLUSTER -Ulcer Cleansing Rinsed/ Rinsed/ Irrigated with Irrigated with Saline Saline -Primary Dressing Applied Aquacel Extra, Aquacel Extra, Silicone Border Silicone Border Foam AG 3.6x4 Foam 4x4 -Aquacel Extra 1 1 -Silicone Border Foam AG 3.6x4 1 -Silicone Border Foam 4x4 1 Treatment Response Procedure Tolerated Well Pain Scale: 0-10 Numeric Is Patient Pain Free? Yes Yes WC - Visit Discharge Discharge Condition Stable Ambulatory Status Wheelchair Transportation Private Auto Medication Reconcilliation completed & No provided to patient/care provider Clinical Summary of Care Provided Yes Assessment/Plan Assessment/Plan (1) Urinary retention: CODE(S): R33.9 - Retention of urine, unspecified (2) Fecal incontinence: CODE(S): R15.9 - Full incontinence of feces QUALIFIERS: Fecal incontinence type: unspecified Qualified Code(s): R15.9 - Full incontinence of feces (3) Decubitus ulcer of buttock, stage 2: CODE(S): L89.302 - Pressure ulcer of unspecified buttock, stage 2 QUALIFIERS: Laterality: right Qualified Code(s): L89.312 - Pressure ulcer of right buttock, stage 2 PLAN: Wash R buttocks area with antibacterial soap and water apply Aquacel extra to wound base moistened and then cover with a ABD pad daily and as needed if Becomes soiled Follow-up in 2 week Continue to rotate in bed every hour. Offload is much as possible with a Roho pad under her buttocks when seated in chairs Encourage patient to move frequently and walk increase food intake with protein and 60 g of protein a day. Patient did like the Shashi and started taking it daily (4) Decubitus ulcer of sacral area: CODE(S): L89.159 - Pressure ulcer of sacral region, unspecified stage QUALIFIERS: Pressure injury stage: stage 2 Qualified Code(s): L89.152 - Pressure ulcer of sacral region, stage 2 (5) Decubitus ulcer of left buttock, stage 2: CODE(S): L89.322 - Pressure ulcer of left buttock, stage 2
== END 2025-09-18 23:59 | disposition home or self-care (01) ==
LOC: WC 10:15
PROVIDERS: PCP Internal Medicine; Referring Provider Internal Medicine; Visit Provider Nurse Practitioner
DX: L89.322 Pressure ulcer of left buttock, stage 2 (principal); L89.152 Pressure ulcer of sacral region, stage 2; R15.9 Full incontinence of feces; R33.9 Retention of urine, unspecified
CPT/HCPCS: 11042

== ENCOUNTER 2025-09-10 05:14 | Emergency (ER) | payer MEDICARE, SELFPAY ==
[2025-09-10 05:16] VITALS: BP 140/65; PULSE 66; RESP 18; TEMP 36.4; O2SAT 99; BMI 22.8
--- NOTE | 2025-09-10 05:45 | PCA ---
Addendum entered by Freddy Morris 09/10/25 06:30: PATIENT HAD AN INDWELLING CATHETER UPON ENTERING THE HOSPITAL AND THE PHYSICIAN ORDER US TO DISCONTINUE THE INDWELLING CATHETER. Original Note: THIS NURSE TECH ATTEMPTED TO INSERT A 16 YI SORTO CATHETER. NO URINE RETURNED UPON INSERTION. THE BALLOON WAS THEN INFLATED WITH 10ML OF SALINE. AFTER TUGGING ON THE CATHETER TO ENSURE IT WAS FITTED CORRRECTLY IN THE BLADDER, THE TIP OF THE CATHETER EXITED THE PATIENTS VAGINA. A NEW 18 YI CATHETER WAS OBTAINED AND THEN INSERTED FOLLWING STERILE TECHNIQUE AND HOSPITAL POLICY. UPON INSERTION, URINE WAS OBSERVED FLOWING THROUGH THE LINE LEADING TO THE CATHETER BAG. APPROXIMATLEY 500ML WAS DRAINED INTO THE BAG
--- OUTSIDE RECORDS SUMMARY | 2025-09-10 05:58 | XMS RPT_ITS | CCD ---
Author Organization [facility] ion [facility] Care Team Providers Care Industrial Safety Engineer Name Role Phone Ludin Suarez Attending Unavailable Ludin Suarez Attending Unavailable Ludin Suarez Attending Unavailable Ludin Suarez Referring Unavailable Jack DELACRUZ, Anaid Primary Care Provider ANAID SANTIAGO Referring Unavailable ANAID SANTIAGO Primary Care Unavailable Older PIPE FITTER.INSIGHT DIRECTOR, Lawrence Unavailable Dr. Vadim Florence DO Attending Provider Dr. Vadim Florence DO Emergency Provider Dr. Anaid Santiago MD Primary Care Provider Dr. Guerrero [...] Gusman MD Attending Provider Unavaila moraima Morgan STERILE PROCESSING TECH-C, Daya Attending Provider Adele Gusman MD Referring Provider Unavailemeterio Darby MD, Dr. Lane Emergency Provider Jack DELACRUZ, Dr. Worrell Primary Care Provider Naseem DELACRUZ, Dr. Angulo Attending Provider Wilner DELACRUZ, Dr. Lane Attending Provider Tickning STERILE PROCESSING TECH-C, Daya Attending Provider Karen PRICE, Dr. Olson Emergency Provider Jesse DELACRUZ, Dr. White Admit Provider Jesse DELACRUZ, Dr. White Attending Provider Jack DELACRUZ, Dr. Worrell Primary Care Provider Naseem DELACRUZ, Adele Attending Provider Unavaila moraima Morgan STERILE PROCESSING TECH-C, Daya Attending Provider Jesse DELACRUZ, Dr. White Other Provider Dr. Bill Vieira DO Attending Provider Jesse DELACRUZ, Dr. White Attending Provider Dariel PRICE, Dr. Khan Other Provider Dr. Vadim Estrada MD Attending Provider Dariel PRICE, Dr. Khan Referring Provider Chalino DELACRUZ, Dr. Ramey Attending Provider Unavail Dr. Tanvir Boston MD Referring Provider Unavail zaire Santiago MD, Dr. Worrell Referring Provider Lobato STERILE PROCESSING TECH-C, Lisa Attending Provider Lobato STERILE PROCESSING TECH-C, Lisa Other Provider Dr. Reggie Chan MD Emergency Provider JACK DELACRUZ, DR ANAID Cabrales Primary Care Physician JACK DELACRUZ, DR ANAID Cabrales Attending Omar SANTIAGO MD, DR ANAID Cabrales Primary Care Unavailyue Santiago MD, Dr. Worrell Primary Care Physician Wilner DELACRUZ, Dr. Lane Attending Physician Wilner DELACRUZ, Dr. Lane Emergency Department Physici an Karen PRICE, Dr. Olson Emergency Department Physic emma Jesse DELACRUZ, Dr. White Admitting Physician Jesse DELACRUZ, Dr. White Nurse Practitioner Dariel PRICE, Dr. Khan Attending Physician Jesse DELACRUZ, Dr. White Attending Physician Dariel PRICE, Dr. Khan Nurse Practitioner Sean DELACRUZ, Dr. Fierro Attending Physician Chalino DELACRUZ, Dr. Ramey Attending Physician Unavamary jo Lobato STERILE PROCESSING TECH-C, Lisa Attending Physician Luis Alfredo STERILE PROCESSING TECH-C, Lisa Nurse Practitioner Dr. Reggie Chan MD Attending Physician Dustin DELACRUZ, Dr. Paredes Emergency Department Physician GANTA, ANAID Referring Unavailable GANTA, ANAID Primary Care Unavailable OLDER, LAWRENCE Attending Unavailable GANTA, ANAID Primary Care Unavailable GANTA, ANAID Referring Unavailable GANTA, ANAID Primary Care Unavailable GANTA, ANAID Primary Care Unavailable FREDDY BALTAZAR Attending Unavailable OLDER, LAWRENCE Referring Unavailable GANTA, ANAID Primary Care Unavailable GANTA, ANAID Attending Unavailable GANTA, ANAID Primary Care Unavailable GANTA, ANAID Attending Unavailable GANTA, ANAID Primary Care Unavailable GANTA, ANAID Attending Unavailable GANTA, ANAID Primary Care Unavailable DEANA KLEIN Attending Unavailable GANTA, ANAID Referring Unavailable GANTA, ANAID Primary Care Unavailable GANTA, ANAID Attending Unavailable GANTA, ANAID Primary Care Unavailable GANTA, ANAID Referring Unavailable GANTA, ANAID Primary Care Unavailable OLDER, LAWRENCE Attending Unavailable GANTA, ANAID Primary Care Unavailable OLDER, LAWRENCE Referring Unavailable GANTA, ANAID Primary Care Unavailable GANTA, ANAID Attending Unavailable OLDER, LAWRENCE Referring Unavailable GANTA, ANAID Primary Care Unavailable GANTA, ANAID Attending Unavailable SELF Referring Unavailable GANTA, ANAID Primary Care Unavailable Ganta, Anaid Primary Care Unavailable Tereletsky, Bill Attending Unavailable Molina, Cindy Admitting Unavailable Molina, Cindy Consulting Unavailable Koram, Allison Lyn Attending Unavailable [facility] Primary Care Unavailable Spittle, Boston Consulting Unavailable Ethan, Roro Admitting Unavailable Ethan, Roro Consulting Unavailable Ganta, Anaid Primary Care Unavailable Domingo Darby Attending Unavailable Ganta, Anaid Primary Care Unavailable Bill Vieira Attending Unavailable Molina, Cindy Consulting Unavailable Molina, Cindy Admitting Unavailable Tereletsky, Bill Consulting Unavailable Vadim Estrada Attending Unavailable [facility], [facility]aid Primary Care Unavailable Srinath, Garfield Chi Referring Unavailable Vadim Estrada Attending Unavailable [facility], [facility]aid Primary Care Unavailable Tereletsky, Bill Referring Unavailable [facility], Anaid Primary Care Unavailable Indu Longhryn Attending Unavailable Ethan, Roro Admitting Unavailable Spittle, Boston Consulting Unavailable Ethan, Roro Consulting Unavailable [facility], Anaid Primary Care Unavailable Vadim Flornece Attending Unavailable [facility], [facility]aid Primary Care Unavailable Domingo Darby Attending Unavailable Ganta, Anaid Referring Unavailable Ganta, Anaid Primary Care Unavailable Luis Alfredo STERILE PROCESSING TECH, Lisa Attending Unavailable Ganta, Anaid Referring Unavailable Ganta, Anaid Primary Care Unavailable Lobato STERILE PROCESSING TECH, Lisa Attending Unavailable Tickton STERILE PROCESSING TECH, Daya Attending Unavailable [facility], Anaid Primary Care Unavailable Tickton STERILE PROCESSING TECH, Daya Attending Unavailable [facility], Anaid Primary Care Unavailable [facility], Anaid Primary Care Unavailable Shanekae Efewongbe Attending Unavailable Cindy Molina Attending Unavailable Koram, Allison Lyn Attending Unavailable Koram, Allison Lyn Consulting Unavailable Tanvir Grossman Attending Unavailable Tanvir Grossman Referring Unavailable [facility], Anaid Primary Care Unavailable Oleghe OLS, Efewongbe Attending Unavailabl e Oleghe OLS, Efewongbe Referring Unavailabl e Ganta, Anaid Primary Care Unavailable [facility], [facility]aid Primary Care Unavailable Tickton OLS, Daya Attending Unavailable [facility], Anaid Primary Care Unavailable Srinath, Garfield Chi Attending Unavailable Srinath, Garfield Chi Referring Unavailable [facility], [facility]aid Primary Care Unavailable Chan, Reggie Attending Unavailable Oleghe OLS, Efewongbe Attending Unavailabl e Ganta, Anaid Primary Care Unavailable Ganta, Anaid Primary Care Unavailable Srinath, Garfield Chi Admitting Unavailable SrinathGarfield oliva Chi Attending Unavailable Medications Current Medications Medication Drug Class(es) Dates Sig (Normalized) Sig (Original) amLODIPine (1 source) Dihydropyridine Calcium Channel Deshawn Start: 10-29-2019 amLODIPine Active October 29, 2019 12:00am ascorbic acid 500 mg oral tablet (20 sources) Vitamin C Start: 03-01-2025 take 1 tablet by mouth once daily Start: 10-29-2019 Vitamin C Acti ve October 29, 2019 12:00am ascorbic acid (V ITAMIN C ORAL) Take by mouth once daily. Active busPIRone hydrochloride 5 mg oral tablet (20 sources) Start: 05-06-2025 take 1 tablet by mouth twice daily Catheter (SELF-CATHETER, FEMALE) 14 Fr misc (20 sources) Catheter (SELF-CATHETER, FEMALE) 14 Fr misc Self catheterizes four times daily Active cholecalciferol 0.125 mg oral capsule (4 sources) Vitamin D Start: 06-20-2025 take 1 capsule by mouth once daily citalopram 20 mg oral tablet (20 sources) Serotonin Reuptake Inhibitor Start: 04-20-2025 take 1 tablet by mouth once daily Start: 10-29-2019 Citalopram Act morro October 29, 2019 12:00am donepezil hydrochloride 10 m g oral tablet (20 sources) Start: 03-01-2025 take 1 tablet by tatiana th once daily Start: 02-04-2025 End: 02-04-2025 take 1 tablet by mouth once daily Donepezil 10 mg tablet Active 10 mg PO DAILY March 01, 2025 12:00am dementia Start: 01-02-2025 End: 02-04-2025 take 1 tablet by mouth once daily at bedtime donepezil (ARICEPT) 5 mg tablet Take 1 tablet by mouth daily at bedtime. 30 tablet 11 01/02/2025 02/04/2025 Discontinued furosemide 20 mg oral tablet (20 sources) Loop Diuretic Start: 07-22-2025 Start: 05-06-2025 End: 07-17-2025 furosemide (LASIX) 20 mg tab let Indications: Acute heart failure, unspecified heart failure type (HCC) Please give her Sunday and in the morning. Or if her weight increases by 3 pounds on any given day, give one pill on that day 30 tablet 3 07/17/2025 Active levothyroxine sodium 0.05 mg oral tablet (20 sources) l-Thyroxine Start: 11-06-2024 End: 07-15-2025 take 1 tablet by mouth once daily Start: 11-05-2024 End: 11-06-2024 take 1 capsule by mouth once daily before breakfast levothyroxine 50 mcg cap Indications: Hypothyroidism, unspecified type Take 1 capsule by mouth daily before breakfast. 90 capsule 3 11/05/2024 11/06/2024 Discontinued Start: 10-29-2019 Synthroid Acti ve October 29, 2019 12:00am nitrofurantoin, macrocrystals 25 mg / nitrofurantoin, monohydrate 75 mg oral capsule (2 sources) Nitrofuran Antibacterial Start: 2025 take 1 capsule by mouth twice daily at mealtime sodium chloride 0.154 meq/ml irrigation solution (20 sources) Start: 05-06-2025 sodium chloride 0.9 % IRRIGATION Indications: Urine retention Irrigate 60 mL as instructed once daily as needed. 2000 mL 3 05/06/2025 Active traZODone hydrochloride 50 mg oral tablet (20 sources) Serotonin Reuptake Inhibitor Start: 11-05-2024 End: 04-20-2025 take 1 tablet by mouth at bedtime Start: 10-29-2019 Trazodone Acti ve October 29, 2019 12:00am Vitamin D (1 source) Start: 10-29-2019 Vitamin D Acti ve October 29, 2019 12:00am Completed/Discontinued Medications Medication Drug Class(es) Dates Sig (Normalized) Sig (Original) acetaminophen 500 mg oral tablet (20 sources) Start: 03-16-2025 End: 2025 take 2 tablets by mouth every eight hours Acetaminophen 500 mg Tablet Discontinued 1000 mg PO EVERY 8 HOURS 0 0 June 25, 2025 12:00am 2025 12:03pm Start: 03-04-2025 End: 03-16-2025 Acetaminophen (Aphen) 325 mg tablet Discontinued 650 mg PO EVERY 6 HOURS as needed for pain 30 March 04, 2025 12:00am March 16, 2025 8:16pm ALPRAZolam (1 source) Benzodiazepine Start: 10-29-2019 End: 01-17-2024 Xanax Discontinued Every Day At Bedtime October 29, 2019 12:00am January 17, 2024 1:21pm apixaban 5 mg oral tablet (20 sources) Factor Xa Inhibitor Start: 03-16-2025 End: 08-04-2025 take 1 tablet by mouth twice daily Apixaban (Eliquis) 5 mg Tablet Discontinued 5 mg PO TWICE A DAY 0 0 March 16, 2025 12:00am June 25, 2025 3:13pm aspirin 81 mg oral tablet (11 sources) Platelet Aggregation Inhibitor, Nonsteroidal Anti-inflammatory Drug Start: 03-04-2025 End: 03-16-2025 take 1 capsule by mouth twice daily Aspirin 81 mg capsule Discontinued 81 mg PO TWICE A DAY 56 28 0 March 04, 2025 12:00am March 16, 2025 8:17pm prophylactic cephalexin 500 mg oral capsule (20 sources) Cephalosporin Antibacterial Start: 07-31-2025 End: 2025 take 1 capsule by mouth every six hours Cephalexin 500 mg capsule Discontinued 500 mg PO EVERY 6 HOURS 28 0 July 31, 2025 12:00am 2025 11:19am Start: 05-17-2025 End: 06-20-2025 take 1 capsule [...] 17, 2025 1:00am March 01, 2025 12:29pm clonazePAM 0.5 mg oral tablet (20 sources) Benzodiazepine Start: 06-20-2025 End: 2025 take 1 tablet by mouth every eight hours as needed for anxiety Clonazepam 0.5 mg Tablet Discontinued 0.5 mg PO Q8H as needed for anxiety 6 0 June 25, 2025 12:00am 2025 12:03pm Start: 03-16-2025 End: 05-04-2025 take 1 tablet [...] / sennosides, correction 8.6 mg oral tablet (12 sources) Start: 03-16-2025 End: 2025 Sennosides-Docusate Sodium (Stimulant Laxative Plus) 8.6-50 mg Tablet Discontinued 2 {tbl} PO TWICE A DAY 0 0 June 25, 2025 12:00am 2025 12:02pm escitalopram 20 mg oral tablet (20 sources) Serotonin Reuptake Inhibitor Start: 11-05-2024 End: 2025 take 1 tablet by mouth once daily Escitalopram Oxalate 20 mg tablet Discontinued 20 mg PO DAILY March 01, 2025 12:00am 2025 11:58am anxiety menthol 0.0044 mg/mg / zinc oxide 0.206 mg/mg topical ointment (3 sources) Start: 06-25-2025 End: 2025 Menthol-Zinc Oxide (Calmoseptine) 0.44-20.6 % Ointment Discontinued 1 NMA TOPICAL TWICE A DAY 0 0 June 25, 2025 12:00am 2025 12:01pm Please contact the information source for Protocol details. Start: 06-25-2025 Menthol-Zinc O xide (Calmoseptine) 0.44-20.6 % Ointment Active 1 NMA TOPICAL TWICE A DAY 0 0 June 25, 2025 12:00am Please contact the information source for Protocol details. Guin Red (1 source) Start: 10-29-2019 End: 01-17-2024 Guin Red Discontinued October 29, 2019 12:00am January 17, 2024 1:21pm One Daily Complete Tablet (1 source) Start: 10-29-2019 End: 01-17-2024 One Daily Complete Tablet Discontinued October 29, 2019 12:00am January 17, 2024 1:21pm traMADol hydrochloride 50 mg oral tablet (9 sources) Opioid Agonist Start: 03-16-2025 End: 06-20-2025 take 1 tablet by mouth every six hours as needed for pain Tramadol 50 mg Tablet Discontinued 50 mg PO EVERY 6 HOURS NEEDED as needed for Pain Score 1-5 12 3 0 March 16, 2025 12:00am June 20, 2025 8:50am triamcinolone acetonide 1 mg/ml topical cream (3 sources) Corticosteroid Start: 06-25-2025 End: 2025 Triamcinolone Acetonide 0.1 % Cream Discontinued 1 NMA TOPICAL TWICE A DAY 15 0 June 25, 2025 12:00am 2025 12:02pm Apply twice a day to rectal area as needed hemorrhoidal pain Please contact the information source for Protocol details. Problems Active Problems Problem Classification Problem Date Documented Da te Episodic/Chronic Acquired foot deformities (18 sources) Acquired deformity of toe; Translations: [Acquired [...] with early onset] Onset: 04-17-2025 02-04-2025 Chronic Diseases of white blood cells (4 sources) Lymphocytosis; Translations: [Lymphocytosis (symptomatic)] Onset: 07-17-2025 07-17-2025 Chronic E Codes: Fall (20 sources) Fall; Translations: [Unspecified fall, initial encounter] Onset: 06-28-2025 03-01-2025 Episodic Essential hypertension (4 sources) Hypertensive disorder; Translations: [Essential (primary) hypertension] Onset: 04-22-2025 2025 Chronic Genitourinary symptoms and ill-defined conditions (20 sources) Urinary catheter in situ; Translations: [Presence of urogenital implants] Onset: 04-17-2025 04-17-2025 Chronic Genitourinary symptoms and ill-defined conditions (20 sources) Unable to void urine; Translations: [Retention of urine, unspecified] Onset: 12-23-2024 11-05-2024 Episodic Malaise and fatigue (20 sources) Asthenia; Translations: [Other malaise] Onset: 06-28-2025 03-04-2025 Episodic Miscellaneous mental health disorders (1 source) Insomnia disorder related to another mental disorder; Translations: [Insomnia due to other mental disorder] 02-04-2025 Chronic Mood disorders (17 sources) Depressive disorder; Translations: [Depression] 03-04-2025 Chronic [...] source) Long-term current use of anticoagulant; 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] 04-17-2025 Episodic Other circulatory disease (8 sources) H/O: hypertension; Translations: [Personal history of [...] right ear] 02-04-2025 Episodic Other gastrointestinal disorders (6 sources) Incontinence of feces; Translations: [Full incontinence of feces] 07-22-2025 Episodic Other gastrointestinal disorders (2 sources) Full incontinence of feces; Translations: [Full incontinence of feces] Onset: 08-19-2025 Episodic Other hereditary and degenerative nervous system [...] Onset: 11-05-2024 11-05-2024 Chronic Residual codes; unclassified (13 sources) Finding related to ability to manage personal health care; Translations: [Other specified health status] 11-05-2024 Episodic Residual codes; unclassified (18 sources) Insomnia; Translations: [Insomnia, unspecified] 03-04-2025 Episodic [...] source) Disorientation, unspecified; Translations: [Disorientation, unspecified] Onset: 08-20-2025 Episodic Screening and history of mental health and substance abuse codes (8 sources) H/O: dementia; Translations: [Personal history of [...] other specified circumstances] Onset: 11-05-2024 11-05-2024 Episodic Diabetes mellitus without complication (2 sources) Prediabetes; Translations: [Prediabetes] Onset: 05-06-2025 05-06-2025 Episodic Fracture of neck of femur (hip) [...] Test Name Value Interpretation Reference Range Facility [facility] 08-21-2025 [facility] Telephone (INTMWS) MICHAELA BRANDT ([id number]) 1940 F Date Time Provider Department 08/21/25 ANAID SANTIAGO INTWS During your visit today, we recorded the following information about you: Jagruti Malloy RN 08/21/2025 4:[address] from [employer] [facility] calls and states that patient has been discharged from Speech therapy services. Patient has met all goals. Jagruti Malloy RN Allergies As of Date: 08/21/2025 (No Known Allergies) Date Reviewed: 07/17/2025 Reviewed by: Mike Guo MA - Fully Assessed Reason for Visit: Speech Therapy Update [Other] Prescriptions as of 08/21/2025 - citalopram (CELEXA) 20 mg tablet Take 1 tablet by mouth once daily. - clonazePAM (KLONOPIN) 0.5 mg tablet Take 1 tablet by mouth three times a day as needed for anxiety for up to 30 days. - traZODone (DESYREL) 50 mg tablet Take 1 tablet by mouth daily at bedtime. - levothyroxine (EUTHYROX) 50 mcg tablet Take 1 tablet by mouth once daily. - furosemide (LASIX) 20 mg tablet Please give her Sunday and in the morning. Or if her weight increases by 3 pounds on any given day, give one pill on that day - sodium chloride 0.9 % IRRIGATION Irrigate 60 mL as instructed once daily as needed. - busPIRone (BUSPAR) 5 mg tablet Take 1 tablet by mouth two times a day. - ascorbic acid (VITAMIN C ORAL) Take by mouth once daily. - donepezil (ARICEPT) 10 mg tablet Take 1 tablet by mouth daily after breakfast. - clonazePAM (KLONOPIN) 0.5 mg tablet Take 1 tablet by mouth three times a day as needed for anxiety for up to 30 days. Patient should start on January 31, 2025. - Catheter (SELF-CATHETER, FEMALE) [facility] four times daily Problem List As Of Date 08/21/2025 Noted Resolved Urinary catheter in place [Z96.0] 04/17/2025 Ambulatory dysfunction [R26.2] 04/17/2025 Pressure injury of sacral region, unstageable (*04/17/2025 DELMY (dementia of Alzheimer type) ([facility]) [G30.9, *04/17/2025 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] 04/17/2025 Closed fracture of left hip ([facility]) [S72.002A] 04/17/2025 Balance disorder [R26.89] 04/17/2025 Weakness of both lower extremities [R29.898] 04/17/2025 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 [place], [place], [id number] Absolute lymphocyte countOrd ered By: Domingo Darby on 2025 Lymphocytes Auto (Unsp spec) [#/Vol] 1.06 10*3/uL 0.83-4.51 [facility] Absolute neutrophil countOrd ered By: Domingo Darby on 2025 Neutrophils (Bld) [#/Vol] 9.8 10*3/uL High 2.0-7.7 [facility] Anion gap in Serum or Plasma Ordered By: Domingo Darby on 2025 Anion gap [Moles/Vol] 11 mmol/L 5-15 [facility] Automated blood erythrocyte countOrdered By: Domingo Darby on 2025 RBC (Bld) [#/Vol] 4.51 10*6/uL Normal 4.2-5.4 [facility] Comment on above: Performed By: #### L 100.0100, L500.2500 ####[facility] [address] [place], [place], [id number] Automated blood hematocrit ( percentage)Ordered By: Domingo Darby on 2025 Hematocrit (Bld) [Volume fraction] 39.9 % Normal 37-47 [facility] Comment on above: Performed By: #### L 100.0100, L500.2500 ####[facility] [address] [place], [place], [id number] Automated lymphocyte count a s percentage of total leukocytesOrdered By: Domingo Darby on 2025 Lymphocytes/100 WBC Auto (Unsp spec) 9.1 % Low 19-41 [facility] BUN/creatinine ratioOrdered By: Domingo Darby on 2025 Urea nitrogen/Creatinine [Mass ratio] 22.2 mg/mg High 10-20 [facility] Basic Metabolic Profile (BMP )on 2025 BUN/CRE 22.2 RATIO High 10-20 [facility] Comment on above: Performed By: #### L 100.0100, L500.2500 ####[facility] [address] [place], [address] GAP 11 Normal 5-15 [facility] Comment on above: Performed By: #### L 100.0100, L500.2500 ####[facility] [address] [place], [address] Potassium [Moles/Vol] 3.5 mmol/L Normal 3.3-5.1 [facility] Comment on above: Performed By: #### L 100.0100, L500.2500 ####[facility] [address] [place], [address] Basophil percentageOrdered B y: Domingo Darby on 2025 Basophils/100 WBC (Bld) 0.5 % Normal 0-1 [facility] Comment on above: Performed By: #### L 100.0100, L500.2500 ####[facility] [address] [place], [address] Bedside Glucoseon 2025 FINGERSTICK GLU 138 mg/dL High 74-106 [facility] Comment on above: Result Comment: MOMO [place] OF PATIENT CARE PER NURSING PROTOCOL Performed By: #### L 501.080 ####[facility] [address] [place], [address] Bilirubin Test strip Ql (U)O rdered By: Domingo Darby on 2025 Bilirubin Ql (U) Negative Negative [facility] CBC W/Diff, Automatedon - Absolute Lymph 1.06 X10 3/uL Normal 0.83-4.51 [facility] Comment on above: Performed By: #### L 100.0100, L500.2500 ####[facility] [address] [place], [address] Absolute Neut 9.8 X10 3/uL High 2.0-7.7 [facility] Comment on above: Performed By: #### L 100.0100, L500.2500 ####[facility] [address] [place], [address] IG% 0.500 Normal 0.0-0.9 [facility] Comment on above: Result Comment: IG% - Immature Granulocytes (promyelocytes, myelocytes andmetamyelocytes) > 1% indicates that a LEFT SHIFT is Present. Performed By: #### L 100.0100, L500.2500 ####[facility] [address] [place], [address] Lymphocytes/100 WBC (Bld) 9.1 % Low 19-41 [facility] Comment on above: Performed By: #### L 100.0100, L500.2500 ####[facility] [address] [place], [address] Nucleated RBC (Bld) [#/Vol] 0 10*3/uL Normal 0-5 [facility] Comment on above: Performed By: #### L 100.0100, L500.2500 ####[facility] [address] [place], [address] RDW SD 43.8 fl Normal 35.1-43.9 [facility] Comment on above: Performed By: #### L 100.0100, L500.2500 ####[facility] [address] [place], [address] Calcium oxalate crystals det ection in urine sediment by light microscopyOrdered By: Domingo Darby on 2025 Calcium oxalate crystals LM Ql (Urine sed) 1+ /hpf [facility] Carbon dioxide, total [Moles /volume] in Central venous bloodOrdered By: Domingo Darby on 2025 CO2 [Moles/Vol] 25.5 mmol/L Normal 21.0-32.0 [facility] Comment on above: Performed By: #### L 100.0100, L500.2500 ####[facility] [address] [place], [address] Chloride assayOrdered By: Kodak Darby on 2025 Chloride [Moles/Vol] 105 mmol/L Normal 98-108 [facility] Comment on above: Performed By: #### L 100.0100, L500.2500 ####[facility] [address] [place], [address] Emergency Department Summary on 2025 Emergency Department Summary Normal [facility] Eosinophil percentageOrdered By: Domingo Darby on 2025 Eosinophils/100 WBC (Bld) 0.9 % Normal 0-5 [facility] Comment on above: Performed By: #### L 100.0100, L500.2500 ####[facility] [address] [place], [address] Erythrocyte distribution wid th ratioOrdered By: Domingo Darby on 2025 Erythrocyte distribution width (RBC) [Ratio] 13.6 % Normal 11.6-14.6 [facility] Comment on above: Performed By: #### L 100.0100, L500.2500 ####[facility] [address] [place], [place], [id number] Erythrocyte distribution wid th standard deviationOrdered By: Domingo Darby on 2025 Erythrocyte distribution width (RBC) [Ratio] 43.8 fl 35.1-43.9 [facility] Glomerular filtration rate ( GFR) estimation/1.73 sq m using serum, plasma, or whole bOrdered By: Domingo Darby on 2025 GFR/1.73 sq M.predicted among non-blacks MDRD (S/P/Bld) [Vol rate/Area] 70 mL/min/{1.73_m2} Normal >60 [facility] Comment on above: mL/min/1.73m2 CKD-EP I Creatinine Equation (2020) Result Comment: mL/m in/1.73m2 CKD-EPI Creatinine Equation (2020) Performed By: #### L 100.0100, L500.2500 ####[facility] [address] [place], [address] Glucose measurement at [facility] deOrdered By: Domingo Darby on 2025 Glucose [Mass/Vol] 138 mg/dL High 74-106 [facility] Comment on above: MANAGEMENT OF PATIEN T CARE PER NURSING PROTOCOL Hemoglobin measurementOrdere d By: Domingo Darby on 2025 Hemoglobin (Bld) [Mass/Vol] 13.5 g/dL Normal 12.0-15.0 [facility] Comment on above: Performed By: #### L 100.0100, L500.2500 ####[facility] [address] [place], [address] Immature granulocytes/100 WB C Auto (Bld)Ordered By: Domingo Darby on 2025 Immature granulocytes/100 WBC (Bld) 0.500 % 0.0-0.9 [facility] Comment on above: IG% - Immature Granu locytes (promyelocytes, myelocytes and metamyelocytes) > 1% indicates that a LEFT SHIFT is Present. Ketones Test strip Ql (U)Ord ered By: Domingo Darby on 2025 Ketones Ql (U) Negative Negative [facility] MCV (mean corpuscular volume ) determinationOrdered By: Domingo Darby on 2025 MCV (RBC) [Entitic vol] 88.5 fL Normal 81-99 [facility] Comment on above: Performed By: #### L 100.0100, L500.2500 ####[facility] [address] [place], [address] Mean corpuscular hemoglobin (MCH) determinationOrdered By: Domingo Darby on 2025 MCH (RBC) [Entitic mass] 29.9 pg Normal 27.0-32.0 [facility] Comment on above: Performed By: #### L 100.0100, L500.2500 ####[facility] [address] [place], [address] Mean corpuscular hemoglobin concentration (MCHC) determinationOrdered By: Domingo Darby on 2025 MCHC (RBC) [Mass/Vol] 33.8 g/dL Normal 32-36 [facility] Comment on above: Performed By: #### L 100.0100, L500.2500 ####[facility] [address] [place], [address] Mean platelet volume determi nationOrdered By: Domingo Darby on 2025 Platelet mean volume (Bld) [Entitic vol] 10.1 fL Normal 6.2-12.0 [facility] Comment on above: Performed By: #### L 100.0100, L500.2500 ####[facility] [address] [place], [address] Microscopic analysis of urin e for red blood cells (RBC)Ordered By: Domingo Darby on 2025 Microscopic analysis of urine for red blood cells (RBC) 0 SEEN /hpf 0-5 [facility] Monocyte percentageOrdered B y: Domingo Darby on 2025 Monocytes/100 WBC (Bld) 5.3 % Normal 0-10 [facility] Comment on above: Performed By: #### L 100.0100, L500.2500 ####[facility] [address] [place], [address] Mucus LM Ql (Urine sed)Order ed By: Domingo Darby on 2025 Mucus Ql (Urine sed) 0 SEEN /hpf [facility] Neutrophil percentageOrdered By: Domingo Darby on 2025 Neutrophils/100 WBC (Bld) 83.7 % High 47-70 [facility] Comment on above: Performed By: #### L 100.0100, L500.2500 ####[facility] [address] [place], [address] Nitrite Test strip Ql (U)Ord ered By: Domingo Darby on 2025 Nitrite Ql (U) Positive High Negative [facility] Nucleated red blood cell per centageOrdered By: Domingo Darby on 2025 Nucleated RBC/100 WBC (Bld) [Ratio] 0 % 0-5 [facility] Platelet countOrdered By: Kodak Darby on 2025 Platelets (Bld) [#/Vol] 193 10*3/uL Normal 150-450 [facility] Comment on above: Performed By: #### L 100.0100, L500.2500 ####[facility] [address] [place], [address] Potassium measurement (mass/ volume)Ordered By: Domingo Darby on 2025 Potassium (Unsp spec) [Mass/Vol] 3.5 mmol/L 3.3-5.1 [facility] Protein Test strip Ql (U)Ord ered By: Domingo Darby on 2025 Protein Ql (U) 30 mg/dl High Negative [facility] Serum creatinine measurement (mass/volume)Ordered By: Domingo Darby on 2025 Creatinine [Mass/Vol] 0.82 mg/dL Normal 0.70-1.20 [facility] Comment on above: Performed By: #### L 100.0100, L500.2500 ####[facility] [address] [place], [address] Serum glucose measurement (m ass/volume)Ordered By: Domingo Darby on 2025 Glucose [Mass/Vol] 68 mg/dL Low 70-99 [facility] Comment on above: Performed By: #### L 100.0100, L500.2500 ####[facility] [address] [place], [address] Serum or plasma calcium thomas urement (mass/volume)Ordered By: Domingo Darby on 2025 Calcium [Mass/Vol] 9.2 mg/dL Normal 7.6-11.0 [facility] Comment on above: Performed By: #### L 100.0100, L500.2500 ####[facility] [address] [place], [address] Serum or plasma urea nitroge n measurement (mass/volume)Ordered By: Domingo Darby on 2025 Urea nitrogen [Mass/Vol] 18 mg/dL Normal 4-19 [facility] Comment on above: Performed By: #### L 100.0100, L500.2500 ####[facility] [address] [facility] [address] Sodium levelOrdered By: Domingo Darby on 2025 Sodium [Moles/Vol] 142 mmol/L Normal 133-145 [facility] Comment on above: Performed By: #### L 100.0100, L500.2500 ####[facility] [address] [place] [id number] Squamous epithelial cells de tection in urine sediment by light microscopyOrdered By: Domingo Darby on 2025 Epithelial cells.squamous LM Ql (Urine sed) 0 SEEN /hpf 5-10 [facility] Urinalysis, Completeon 08-17 BACTERIA 3+ /hpf Normal None Seen [facility] Comment on above: Order Comment: CLEAN CATCH Performed By: #### L 400.0001 ####[facility] [address] [place] [address] CA OX CRYSTAL 1+ /hpf Normal [facility] Comment on above: Order Comment: CLEAN CATCH Performed By: #### L 400.0001 ####[facility] [address] [place] [address] WBC >100 SEEN Normal 0-5 [facility] Comment on above: Order Comment: CLEAN CATCH Performed By: #### L 400.0001 ####[facility] [address] [facility] [address] EPI,SQUAMOUS 0 SEEN Normal 5-10 [facility] Comment on above: Order Comment: CLEAN CATCH Performed By: #### L 400.0001 ####[facility] [address] [place], [address] Mucus Ql (Urine sed) 0 SEEN Normal [facility] Comment on above: Order Comment: CLEAN CATCH Performed By: #### L 400.0001 ####[facility] [address] [place], [place], [address] RBC 0 SEEN Normal 0-5 [facility] Comment on above: Order Comment: CLEAN CATCH Performed By: #### L 400.0001 ####[facility] [address] [place], [place], [address] Urine clarityOrdered By: Rey Darby on 2025 Clarity (U) Cloudy Clear [facility] Urine color determinationOrd ered By: Domingo Darby on 2025 Color (U) Yellow Yellow [facility] Urine glucose detectionOrder ed By: Domingo Darby on 2025 Glucose Ql (U) Normal mg/dl Normal [facility] Urine leukocyte esterase det ection by dipstickOrdered By: Domingo Darby on 2025 Leukocyte esterase Test strip Ql (U) 500 /ul High Negative [facility] Urine pHOrdered By: Domingo Arzola ghirene on 2025 pH (U) 6.0 [pH] 5.0 - 8.0 [facility] Urine sediment bacteria coun t by microscopy (number/high power field)Ordered By: Domingo Darby on 2025 Bacteria LM.HPF (Urine sed) [#/Area] 3 /[HPF] None Seen [facility] Urine specific gravity measu rementOrdered By: Domingo Darby on 2025 Specific gravity (U) [Rel density] 1.020 1.002-1.030 [facility] Urine urobilinogen measureme ntOrdered By: Domingo Darby on 2025 Urobilinogen Ql (U) Normal mg/dl Normal [facility] White blood cell (WBC) count Ordered By: Domingo Darby on 2025 WBC (Bld) [#/Vol] 11.7 10*3/uL High 4.4-11.0 [facility] Comment on above: Performed By: #### L 100.0100, L500.2500 ####[facility] [address] [place], [place], [id number] White blood cell countOrdere d By: Domigno Darby on 2025 White blood cell count >100 SEEN /hpf 0-5 [facility] Urine Cultureon 08-03-2025 URC Normal [facility] Comment on above: Performed By: #### M 100.2200 ####[facility] [address] [place], [address] Absolute lymphocyte countOrd ered By: [facility] on 07-31-2025 Lymphocytes Auto (Unsp spec) [#/Vol] 1.88 10*3/uL 0.83-4.51 [facility] Absolute neutrophil countOrd ered By: [facility] on 07-31-2025 Neutrophils (Bld) [#/Vol] 7.3 10*3/uL 2.0-7.7 [facility] Anion gap in Serum or Plasma Ordered By: [facility] on 07-31-2025 Anion gap [Moles/Vol] 9 mmol/L 5-15 [facility] Automated lymphocyte count a s percentage of total leukocytesOrdered By: [facility] on 07-31-2025 Lymphocytes/100 WBC Auto (Unsp spec) 18.7 % Low 19-41 [facility] BUN/creatinine ratioOrdered By: [facility] on 07-31-2025 Urea nitrogen/Creatinine [Mass ratio] 28.0 mg/mg High 10-20 [facility] Basic Metabolic Profile (BMP )on 07-31-2025 BUN/CRE 28.0 RATIO High 10-20 [facility] Comment on above: Performed By: #### L 100.0100, L500.2500 ####[facility] [address] [place], [address] Calcium [Mass/Vol] 9.3 mg/dL Normal 7.6-11.0 [facility] Comment on above: Performed By: #### L 100.0100, L500.2500 ####[facility] [address] [place], [address] Chloride [Moles/Vol] 103 mmol/L Normal 98-108 [facility] Comment on above: Performed By: #### L 100.0100, L500.2500 ####[facility] [address] [place], [address] CO2 [Moles/Vol] 27.4 mmol/L Normal 21.0-32.0 [facility] Comment on above: Performed By: #### L 100.0100, L500.2500 ####[facility] [address] [place], [address] Creatinine [Mass/Vol] 0.76 mg/dL Normal 0.70-1.20 [facility] Comment on above: Performed By: #### L 100.0100, L500.2500 ####[facility] [address] [place], [address] ECRCL 39.50 ml/min Low 50-250 [facility] Comment on above: Performed By: #### L 100.0100, L500.2500 ####[facility] [address] [place], [address] GAP 9 Normal 5-15 [facility] Comment on above: Performed By: #### L 100.0100, L500.2500 ####[facility] [address] [place], [address] GFR/1.73 sq M.predicted among non-blacks MDRD (S/P/Bld) [Vol rate/Area] 77 mL/min/{1.73_m2} Normal >60 [facility] Comment on above: Result Comment: mL/m in/1.73m2 CKD-EPI Creatinine Equation (2020) Performed By: #### L 100.0100, L500.2500 ####[facility] [address] [place], [address] Glucose [Mass/Vol] 96 mg/dL Normal 70-99 [facility] Comment on above: Performed By: #### L 100.0100, L500.2500 ####[facility] [address] [place], [address] Potassium [Moles/Vol] 4.1 mmol/L Normal 3.3-5.1 [facility] Comment on above: Performed By: #### L 100.0100, L500.2500 ####[facility] [address] [place], [address] Sodium [Moles/Vol] 140 mmol/L Normal 133-145 [facility] Comment on above: Performed By: #### L 100.0100, L500.2500 ####[facility] [address] [place], [address] Urea nitrogen [Mass/Vol] 21 mg/dL High 4-19 [facility] Comment on above: Performed By: #### L 100.0100, L500.2500 ####[facility] [address] [place], [address] Basophil percentageOrdered B y: Reggie Chan on 07-31-2025 Basophils/100 WBC (Bld) 0.6 % 0-1 [facility] Bilirubin Test strip Ql (U)O rdered By: Reggie Chan on 07-31-2025 Bilirubin Ql (U) Negative Negative [facility] CBC W/Diff, Automatedon 07-20 Absolute Lymph 1.88 X10 3/uL Normal 0.83-4.51 [facility] Comment on above: Performed By: #### L 100.0100, L500.2500 ####[facility] [address] [place], [address] Absolute Neut 7.3 X10 3/uL Normal 2.0-7.7 [facility] Comment on above: Performed By: #### L 100.0100, L500.2500 ####[facility] [address] [place], [address] Basophils/100 WBC (Bld) 0.6 % Normal 0-1 [facility] Comment on above: Performed By: #### L 100.0100, L500.2500 ####[facility] [address] [place], [address] Eosinophils/100 WBC (Bld) 1.3 % Normal 0-5 [facility] Comment on above: Performed By: #### L 100.0100, L500.2500 ####[facility] [address] [place], [address] Erythrocyte distribution width (RBC) [Ratio] 13.7 % Normal 11.6-14.6 [facility] Comment on above: Performed By: #### L 100.0100, L500.2500 ####[facility] [address] [place], [address] Hematocrit (Bld) [Volume fraction] 37.1 % Normal 37-47 [facility] Comment on above: Performed By: #### L 100.0100, L500.2500 ####[facility] [address] [place], [address] Hemoglobin (Bld) [Mass/Vol] 12.8 g/dL Normal 12.0-15.0 [facility] Comment on above: Performed By: #### L 100.0100, L500.2500 ####[facility] [address] [place], [address] IG% 0.600 Normal 0.0-0.9 [facility] Comment on above: Result Comment: IG% - Immature Granulocytes (promyelocytes, myelocytes andmetamyelocytes) > 1% indicates that a LEFT SHIFT is Present. Performed By: #### L 100.0100, L500.2500 ####[facility] [address] [place], [address] Lymphocytes/100 WBC (Bld) 18.7 % Low 19-41 [facility] Comment on above: Performed By: #### L 100.0100, L500.2500 ####[facility] [address] [place], [address] MCH (RBC) [Entitic mass] 30.5 pg Normal 27.0-32.0 [facility] Comment on above: Performed By: #### L 100.0100, L500.2500 ####[facility] [address] [place], [address] MCHC (RBC) [Mass/Vol] 34.5 g/dL Normal 32-36 [facility] Comment on above: Performed By: #### L 100.0100, L500.2500 ####[facility] [address] [place], [address] MCV (RBC) [Entitic vol] 88.3 fL Normal 81-99 [facility] Comment on above: Performed By: #### L 100.0100, L500.2500 ####[facility] [address] [place], [address] Monocytes/100 WBC (Bld) 6.4 % Normal 0-10 [facility] Comment on above: Performed By: #### L 100.0100, L500.2500 ####[facility] [address] [place], [address] Neutrophils/100 WBC (Bld) 72.4 % High 47-70 [facility] Comment on above: Performed By: #### L 100.0100, L500.2500 ####[facility] [address] [place], [address] Nucleated RBC (Bld) [#/Vol] 0 10*3/uL Normal 0-5 [facility] Comment on above: Performed By: #### L 100.0100, L500.2500 ####[facility] [address] [place], [address] Platelet mean volume (Bld) [Entitic vol] 9.7 fL Normal 6.2-12.0 [facility] Comment on above: Performed By: #### L 100.0100, L500.2500 ####[facility] [address] [place], [address] Platelets (Bld) [#/Vol] 220 10*3/uL Normal 150-450 [facility] Comment on above: Performed By: #### L 100.0100, L500.2500 ####[facility] [address] [place], [address] RBC (Bld) [#/Vol] 4.20 10*6/uL Normal 4.2-5.4 [facility] Comment on above: Performed By: #### L 100.0100, L500.2500 ####[facility] [address] [place], [address] RDW SD 44.5 fl High 35.1-43.9 [facility] Comment on above: Performed By: #### L 100.0100, L500.2500 ####[facility] [address] [place], [address] WBC (Bld) [#/Vol] 10.0 10*3/uL Normal 4.4-11.0 [facility] Comment on above: Performed By: #### L 100.0100, L500.2500 ####[facility] [address] [place], [address] CNPMarilu 07-31-2025 ARIELN Telephone (URONidaWS) MICHAELA BRANDT ([id number]) 1940 F Date Time Provider Department 07/31/25 FREDDY BALTAZAR During your visit today, we recorded the following information about you: Raegan Moore MA 07/31/2025 10:01 AM Signed Patient was visited by home health today. She has a 10 polish catheter which was unintentionally removed. They do not have any supplies to replace the catheter and neither does the patient. Home Health asking if the office has any and if the patient can be seen today to replace it? Please contact Savanah back at [phone]. Devin Crespo LPN 07/31/2025 10:25 AM Signed Called Savanah With [facility]. Savanah aware that we do not have urology staff in clinic today nor do we carry 10 FR catheters. Per Savanah they will send patient to emergency room for replacement of catheter. 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 [facility], [facility], [facility]. provided daughter with numbers for [...] 2025. - Catheter (SELF-CATHETER, FEMALE) [facility] four times daily Problem List As Of Date 07/31/2025 Noted Resolved Urinary catheter in place [Z96.0] 04/17/2025 Ambulatory dysfunction [R26.2] 04/17/2025 Pressure injury of sacral region, unstageable (*04/17/2025 DELMY (dementia of Alzheimer type) ([facility]) [G30.9, *04/17/2025 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] 04/17/2025 Closed fracture of left hip ([facility]) [S72.002A] 04/17/2025 Balance disorder [R26.89] 04/17/2025 Weakness of both lower extremities [R29.898] 04/17/2025 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 Reports [facility] placed the catheter before discharge and it is a 10 [place] size. Reports there are no orders that came with the catheter. [facility] does not have a 10 Fr, and asking pcp if they can replace with 12 Fr. Note Savanah spoke with Urology today and was advised to take pt to ER to have catheter put back in. See today's telephone note in epic. Please advise and phone Savanah with reply: [phone] Yuko Rasmussen 07/31/2025 2:14 PM Signed Savanah from [facility] called again for status update on alternative suggestions for catheter reinsertion. Savanah stated that since the provider has not responded yet, she will tell the patient's daughter to have patient transported to ER by squad. Anaid Santiago MD 07/31/2025 2:56 PM Signed We are not generally taking care of catheter stuff so I wont be able to comment much on it , ok for Er Regards, Nickolas Cesar MD, ZACHARIAH 07/31/2025 3:22 PM Signed Savanah- Director of [facility] called and is notified of providers message [...] states that they will take patient to [facility] ER. Advised daughter to also mention at ER that patient has been having issues with bowel movements. 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] 06/03/2025 Encounter Status:Closed by MIKE GUO on 08/03/25 Normal [facility] Carbon dioxide, total [Moles /volume] in [place] venous bloodOrdered By: Reggie Chan on 07-31-2025 CO2 [Moles/Vol] 27.4 mmol/L 21.0-32.0 [facility] Chloride assayOrdered By: Dick Chan on 07-31-2025 Chloride [Moles/Vol] 103 mmol/L 98-108 [facility] Emergency Department Summary on 07-31-2025 Emergency Department Summary Normal [facility] [facility] Eosinophil percentageOrdered By: Reggie Chan on 07-31-2025 Eosinophils/100 WBC (Bld) 1.3 % 0-5 [facility] Erythrocyte distribution wid th ratioOrdered By: Reggie Chan on 07-31-2025 Erythrocyte distribution width (RBC) [Ratio] 13.7 % 11.6-14.6 [facility] Erythrocyte distribution wid th standard deviationOrdered By: Reggie Chan on 07-31-2025 Erythrocyte distribution width (RBC) [Ratio] 44.5 fl High 35.1-43.9 [facility] Glomerular filtration rate ( GFR) estimation/1.73 sq m using serum, plasma, or whole bOrdered By: Reggie Chan on 07-31-2025 GFR/1.73 sq M.predicted among non-blacks MDRD (S/P/Bld) [Vol rate/Area] 77 mL/min/{1.73_m2} >60 [facility] Comment on above: mL/min/1.73m2 CKD-EP I Creatinine Equation (2020) Hematocrit Auto (Bld) [Volum e fraction]Ordered By: Reggie Chan on 07-31-2025 Hematocrit (Bld) [Volume fraction] 37.1 % 37-47 [facility] Hemoglobin measurementOrdere d By: Reggie Chan on 07-31-2025 Hemoglobin (Bld) [Mass/Vol] 12.8 g/dL 12.0-15.0 [facility] Immature granulocytes/100 WB C Auto (Bld)Ordered By: Reggie Chan on 07-31-2025 Immature granulocytes/100 WBC (Bld) 0.600 % 0.0-0.9 [facility] Comment on above: IG% - Immature Granu locytes (promyelocytes, myelocytes and metamyelocytes) > 1% indicates that a LEFT SHIFT is Present. Ketones Test strip Ql (U)Ord ered By: Reggieyamil Chan on 07-31-2025 Ketones Ql (U) Negative Negative [facility] MCV (mean corpuscular volume ) determinationOrdered By: Reggie Chan on 07-31-2025 MCV (RBC) [Entitic vol] 88.3 fL 81-99 [facility] Mean corpuscular hemoglobin (MCH) determinationOrdered By: Reggieyamil Chan on 07-31-2025 MCH (RBC) [Entitic mass] 30.5 pg 27.0-32.0 [facility] Mean corpuscular hemoglobin concentration (MCHC) determinationOrdered By: Reggieyamil Chan on 07-31-2025 MCHC (RBC) [Mass/Vol] 34.5 g/dL 32-36 [facility] Mean platelet volume determi nationOrdered By: Reggieyamil Chan on 07-31-2025 Platelet mean volume (Bld) [Entitic vol] 9.7 fL 6.2-12.0 [facility] Microscopic analysis of urin e for red blood cells (RBC)Ordered By: Reggie Chan on 07-31-2025 Microscopic analysis of urine for red blood cells (RBC) 0-5 SEEN /hpf 0-5 [facility] Monocyte percentageOrdered B y: Reggie Chan on 07-31-2025 Monocytes/100 WBC (Bld) 6.4 % 0-10 [facility] Mucus LM Ql (Urine sed)Order ed By: Reggie Chan on 07-31-2025 Mucus Ql (Urine sed) 0 SEEN /hpf [facility] Neutrophil percentageOrdered By: Reggie Chan on 07-31-2025 Neutrophils/100 WBC (Bld) 72.4 % High 47-70 [facility] Nitrite Test strip Ql (U)Ord ered By: Reggie Chan on 07-31-2025 Nitrite Ql (U) Positive High Negative [facility] Nucleated red blood cell per centageOrdered By: Reggie Chan on 07-31-2025 Nucleated RBC/100 WBC (Bld) [Ratio] 0 % 0-5 [facility] Platelet countOrdered By: Dick Chan on 07-31-2025 Platelets (Bld) [#/Vol] 220 10*3/uL 150-450 [facility] Potassium measurement (mass/ volume)Ordered By: Reggie Chan on 07-31-2025 Potassium (Unsp spec) [Mass/Vol] 4.1 mmol/L 3.3-5.1 [facility] Protein Test strip Ql (U)Ord ered By: Reggie Chan on 07-31-2025 Protein Ql (U) 15 mg/dl High Negative [facility] RBC Auto (Bld) [#/Vol]Ordere d By: Reggie Chan on 07-31-2025 RBC (Bld) [#/Vol] 4.20 10*6/uL 4.2-5.4 [facility] Serum creatinine measurement (mass/volume)Ordered By: Reggie Chan on 07-31-2025 Creatinine [Mass/Vol] 0.76 mg/dL 0.70-1.20 [facility] Serum glucose measurement (m ass/volume)Ordered By: Reggie Chan on 07-31-2025 Glucose [Mass/Vol] 96 mg/dL 70-99 [facility] Serum or plasma calcium thomas urement (mass/volume)Ordered By: Reggie Chan on 07-31-2025 Calcium [Mass/Vol] 9.3 mg/dL 7.6-11.0 [facility] Serum or plasma urea nitroge n measurement (mass/volume)Ordered By: Reggie Chan on 07-31-2025 Urea nitrogen [Mass/Vol] 21 mg/dL High 4-19 [facility] Sodium levelOrdered By: Reggie Chan on 07-31-2025 Sodium [Moles/Vol] 140 mmol/L 133-145 [facility] Squamous epithelial cells de tection in urine sediment by light microscopyOrdered By: Reggie Chan on 07-31-2025 Epithelial cells.squamous LM Ql (Urine sed) 0-5 SEEN /hpf 5-10 [facility] Urinalysis, Completeon 07-31 BACTERIA 1+ /hpf Normal None Seen [facility] Comment on above: Order Comment: SHAKA TER SPECIMEN Performed By: #### L 400.0001 ####[facility] [address] [place], [address] EPI,SQUAMOUS 0-5 SEEN Normal 5-10 [facility] Comment on above: Order Comment: SHAKA TER SPECIMEN Performed By: #### L 400.0001 ####[facility] [address] [place], [address] RBC 0-5 SEEN Normal 0-5 [facility] Comment on above: Order Comment: SHAKA TER SPECIMEN Performed By: #### L 400.0001 ####[facility] [address] [place], [address] WBC 5-10 SEEN Normal 0-5 [facility] Comment on above: Order Comment: SHAKA TER SPECIMEN Performed By: #### L 400.0001 ####[facility] [address] [place], [address] Mucus Ql (Urine sed) 0 SEEN Normal [facility] Comment on above: Order Comment: SHAKA TER SPECIMEN Performed By: #### L 400.0001 ####[facility] [address] [place], [address] Urine clarityOrdered By: Reggie Chan on 07-31-2025 Clarity (U) Clear Clear [facility] Urine color determinationOrd ered By: Reggie Chan on 07-31-2025 Color (U) Yellow Yellow [facility] Urine cultureOrdered By: Reggie Chan on 07-31-2025 Bacteria identified Cx Nom (U) Escherichia coli Abnormal [facility] Urine glucose detectionOrder ed By: Reggie Chan on 07-31-2025 Glucose Ql (U) Normal mg/dl Normal [facility] Urine leukocyte esterase det ection by dipstickOrdered By: Reggie Chan on 07-31-2025 Leukocyte esterase Test strip Ql (U) 25 /ul High Negative [facility] Urine pHOrdered By: Reggie sommer on 07-31-2025 pH (U) 6.0 [pH] 5.0 - 8.0 [facility] Urine sediment bacteria coun t by microscopy (number/high power field)Ordered By: Reggie Chan on 07-31-2025 Bacteria LM.HPF (Urine sed) [#/Area] 1 /[HPF] None Seen [facility] Urine specific gravity measu rementOrdered By: Reggie Chan on 07-31-2025 Specific gravity (U) [Rel density] 1.020 1.002-1.030 [facility] Urine urobilinogen measureme ntOrdered By: Reggie Chan on 07-31-2025 Urobilinogen Ql (U) Normal mg/dl Normal [facility] White blood cell (WBC) count Ordered By: Reggie Chan on 07-31-2025 WBC (Bld) [#/Vol] 10.0 10*3/uL 4.4-11.0 [facility] White blood cell countOrdere d By: Reggie Chan on 07-31-2025 White blood cell count 5-10 SEEN /hpf 0-5 [facility] CNPNon 07-29-2025 CNPN Telephone (INTMWS) MICHAELA BRANDT ([id number]) 1940 F Date Time Provider Department 07/29/25 ANAID SANTIAGO During your visit today, we recorded [...] 2025. - Catheter (SELF-CATHETER, FEMALE) [facility] four [facility] daily Problem List As Of Date 07/29/2025 Noted Resolved Urinary catheter in place [Z96.0] 04/17/2025 Ambulatory dysfunction [R26.2] 04/17/2025 Pressure injury of sacral region, unstageable (*04/17/2025 DELMY (dementia of Alzheimer type) ([facility]) [G30.9, *04/17/2025 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] 04/17/2025 Closed fracture of left hip ([facility]) [S72.002A] 04/17/2025 Balance disorder [R26.89] 04/17/2025 Weakness of both lower extremities [R29.898] 04/17/2025 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] 06/03/2025 Encounter Status:Closed by RUBEN HERNANDEZ on 08/05/25 Normal [facility] LABORATORYOrdered By: Bill mckeon on 07-27-2025 Appearance (U) Cloudy *ABN* (07/27/25 5:15 PM) Invalid Interpretation Code Clear AO Auto Urine SS Bacteria LM.HPF (Urine sed) [#/Area] 2 /[HPF] Invalid Interpretation Code Negative AO Auto Urine SS Bilirubin Ql (U) Negative (07/27/25 5:15 PM) Normal Negative AO Auto Urine SS Color (U) Yellow (07/27/25 5:15 PM) Normal AO Auto Urine SS Glucose Test strip (U) [Mass/Vol] Negative Normal Negative AO Auto Urine SS Hemoglobin Auto test strip (U) [Mass/Vol] Negative (07/27/25 5:15 PM) Normal Negative AO Auto Urine SS Ketones Ql (U) Negative Normal Negative AO Auto Urine SS UA Leuk Est Large *ABN* (07/27/25 5:15 PM) Invalid Interpretation Code Negative AO Auto Urine SS UA Nitrite Positive *ABN* (07/27/25 5:15 PM) Invalid Interpretation Code Negative AO Auto Urine SS UA pH 6.0 (07/27/25 5:15 PM) Normal 5.0 - 8.0 AO Auto Urine SS UA Protein Negative Normal Negative AO Auto Urine SS UA RBC 0-2 /HPF Normal 0-2 AO Auto Urine SS UA Spec Grav 1.015 (07/27/25 5:15 PM) Normal 1.015-1.025 AO Auto Urine SS UA Specimen Type Clean Catch (07/27/25 5:15 PM) Normal AO Auto Urine SS UA Squam Epithelial 0-2 /HPF Normal 0-20 AO Au to Urine SS UA Urobilinogen 0.2 E.U./dL Normal 0.2-1.0 AO Auto Urine SS WBC LM.HPF (Urine sed) [#/Area] 50-100 /HPF Invalid Interpretation Code 0-5 AO Auto Urine SS No Panel Informationon 07-27 Culture Urine >100,000 cfu/ml Multiple bacterial morphotypes present. Probable Contamination. Suggest recollection if clinically indicated. [facility] Work Phone: UAon 07-27-2025 Color (U) Yellow Normal [facility] Comment on above: Performed By: #### U AMIC, UA #### [address] [address] Glucose (U) [Mass/Vol] Negative Normal Negative [facility] Comment on above: Performed By: #### U AMIC, UA #### [place] [address] Ketones Ql (U) Negative Normal Negative [facility] Comment on above: Performed By: #### U AMIC, UA #### [place] [address] UA Appear Cloudy Abnormal Clear [facility] Comment on above: Performed By: #### U AMIC, UA #### [place] [address] UA Blood Negative Normal Negative [facility] Comment on above: Performed By: #### U AMIC, UA #### [address] [address] UA Leuk Est Large Abnormal Negative [facility] Comment on above: Performed By: #### U AMIC, UA #### [address] [address] UA Nitrite Positive Abnormal Negative [facility] Comment on above: Performed By: #### U AMIC, UA #### [place] [address] UA pH 6.0 Normal 5.0 - 8.0 [facility] Comment on above: Performed By: #### U AMIC, UA #### [place] [address] UA Protein Negative Normal Negative [facility] Comment on above: Performed By: #### U AMIC, UA #### [address] [address] UA Spec Grav 1.015 Normal 1.015-1.025 [facility] Comment on above: Performed By: #### U AMIC, UA #### [address] [address] UA Specimen Type Clean Catch Normal [facility] Comment on above: Performed By: #### U AMIC, UA #### [address] [address] UA Urobilinogen 0.2 E.U./dL Normal 0.2-1.0 [facility] Comment on above: Performed By: #### U AMIC, UA #### [address] [address] Urobilinogen (U) [Mass/Vol] Negative Normal Negative [facility] Comment on above: Performed By: #### U AMIC, UA #### [address] [address] UAMICon 07-27-2025 UA Bacteria 2+ /hpf Abnormal Negative [facility] Comment on above: Performed By: #### U AMIC, UA #### [address] [address] UA RBC 0-2 Normal 0-2 [facility] Comment on above: Performed By: #### U AMIC, UA #### [address] [address] UA Squam Epithelial 0-2 Normal 0-20 [facility] Comment on above: Performed By: #### U AMIC, UA #### [place] [id number] UA WBC 50-100 Abnormal 0-5 [facility] Comment on above: Performed By: #### U AMIC, UA #### [place] [id number] [facility]PMarilu [facility] MICHAELA [facility]AND[facility] ([id number]) 1940 F Date Time Provider Department 07/24/25 ANAID SANTIAGO During your visit today, we recorded the following information about you: Michaelle Tai RN 07/24/2025 12:23 PM Signed Raul Geno [facility]- phoned to report patient had a missed [...] (*04/17/2025 DELMY (dementia of Alzheimer type) ([facility]) [G30.9, *04/17/2025 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] 04/17/2025 Closed fracture of left hip ([facility]) [S72.002A] 04/17/2025 Balance disorder [R26.89] 04/17/2025 Weakness of both lower extremities [R29.898] 04/17/2025 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 Speech therapy will see patient starting 07/19 1 times a week times 5 weeks for cognitive communication. No call back needed unless questions. ZACHARIAH Farris Joy, APRN.INSIGHT DIRECTOR 07/27/2025 9:08 AM Signed Agree with plan and pcp ok to follow. 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 No need for return call. 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] 06/03/2025 Encounter Status:Closed by LAWRENCE SALINAS on 07/27/25 Normal [facility] Wound Ctr History AND Physic miracle 07-22-2025 Wound Ctr History & Physical Normal [facility] CBC W Auto Differential pane l (Bld)on 07-17-2025 Basophils (Bld) [#/Vol] 0.08 10*3/uL Normal <0.11 [facility] Comment on above: Order Comment: Speci men Type: BLOOD SPECIMENOrdering Facility: [facility] [place] Address: [address] [place] [address] Performed By: #### 5 7021-8 ####[facility] LABCLIA [id number] [place] [address] [place] Basophils/100 WBC (Bld) 0.6 % Normal [facility] Comment on above: Order Comment: Speci men Type: BLOOD SPECIMENOrdering Facility: [facility] [place] Address: [address] [place] [address] Performed By: #### 5 7021-8 ####[facility] LABCLIA [id number] [place] [address] [place] Differential cell count method Nom (Bld) Auto Normal [facility] Comment on above: Order Comment: Speci men Type: BLOOD SPECIMENOrdering Facility: [facility] [place] Address: [address] [place] [address] Performed By: #### 5 7021-8 ####[facility] LABCLIA [id number] [place] [address] [place] Eosinophils (Bld) [#/Vol] 0.13 10*3/uL Normal <0.46 [facility] Comment on above: Order Comment: Speci men Type: BLOOD SPECIMENOrdering Facility: [facility] [place] Address: [address] [place] [address] Performed By: #### 5 7021-8 ####[facility] LABCLIA [id number] [place] [address] [place] Eosinophils/100 WBC (Bld) 1.1 % Normal [facility] Comment on above: Order Comment: Speci men Type: BLOOD SPECIMENOrdering Facility: [facility] [place] Address: [address] [place] [address] Performed By: #### 5 7021-8 ####[facility] LABCLIA [id number] [place] [address] [place] Erythrocyte distribution width (RBC) [Ratio] 14.3 % Normal 11.5-15.0 [facility] Comment on above: Order Comment: Speci men Type: BLOOD SPECIMENOrdering Facility: [facility] [place] Address: [address] [place] [address] Performed By: #### 5 7021-8 ####[facility] LABCLIA [id number] [place] [address] [place] Hematocrit (Bld) [Volume fraction] 39.8 % Normal 36.0-46.0 [facility] Comment on above: Order Comment: Speci men Type: BLOOD SPECIMENOrdering Facility: [facility] [place] Address: [address] [place] [address] Performed By: #### 5 7021-8 ####[facility] LABCLIA [id number] [place] [address] [place] Hemoglobin (Bld) [Mass/Vol] 13.3 g/dL Normal 11.5-15.5 [facility] Comment on above: Order Comment: Speci men Type: BLOOD SPECIMENOrdering Facility: [facility] [place] Address: [address] [place] [address] Performed By: #### 5 7021-8 ####[facility] LABCLIA [id number] [place] [address] [place] Immature granulocytes (Bld) [#/Vol] 0.12 10*3/uL High <0.10 [facility] Comment on above: Order Comment: Speci men Type: BLOOD SPECIMENOrdering Facility: [facility] [place] Address: [address] [place] [address] Performed By: #### 5 7021-8 ####[facility] LABCLIA [id number] [place] [address] [place] Immature granulocytes/100 WBC (Bld) 1.0 % Normal [facility] Comment on above: Order Comment: Speci men Type: BLOOD SPECIMENOrdering Facility: [facility] [place] Address: [address] [place] [address] Performed By: #### 5 7021-8 ####[facility] LABCLIA [id number] [place] [address] [place] Lymphocytes (Bld) [#/Vol] 1.41 10*3/uL Normal 1.00-4.00 [facility] Comment on above: Order Comment: Speci men Type: BLOOD SPECIMENOrdering Facility: [facility] [place] Address: [address] [place] [address] Performed By: #### 5 7021-8 ####[facility] LABIA [id number] [place] [address] [place] Lymphocytes/100 WBC (Bld) 11.4 % Normal [facility] Comment on above: Order Comment: Speci men Type: BLOOD SPECIMENOrdering Facility: [facility] [place] Address: [address] [place] [address] Performed By: #### 5 7021-8 ####[facility] LABIA [id number] [place] [address] [place] MCH (RBC) [Entitic mass] 30.0 pg Normal 26.0-34.0 [facility] Comment on above: Order Comment: Speci men Type: BLOOD SPECIMENOrdering Facility: [facility] [place] Address: [address] [place] [address] Performed By: #### 5 7021-8 ####[facility] LABIA [id number] [place] [address] [place] MCHC (RBC) [Mass/Vol] 33.4 g/dL Normal 30.5-36.0 [facility] Comment on above: Order Comment: Speci men Type: BLOOD SPECIMENOrdering Facility: [facility] [place] Address: [address] [place] [address] Performed By: #### 5 7021-8 ####[facility] LABIA [id number] [place] [address] [place] MCV (RBC) [Entitic vol] 89.8 fL Normal 80.0-100.[address] [facility] Comment on above: Order Comment: Speci men Type: BLOOD SPECIMENOrdering Facility: [facility] [place] Address: [address] [place] [address] Performed By: #### 5 7021-8 ####[facility] LABIA [id number] [address] [address] [place] Monocytes (Bld) [#/Vol] 0.72 10*3/uL Normal <0.87 [facility] Comment on above: Order Comment: Speci men Type: BLOOD SPECIMENOrdering Facility: [facility] [place] Address: [address] [place] [address] Performed By: #### 5 7021-8 ####[facility] LABCLIA [id number] [facility] [address], [place] [address] [place] Monocytes/100 WBC (Bld) 5.8 % Normal [facility] Comment on above: Order Comment: Speci men Type: BLOOD SPECIMENOrdering Facility: [facility] [place] Address: [address] [place] [address] Performed By: #### 5 7021-8 ####[facility] LABCLIA [id number] [place] [address] [place] Neutrophils (Bld) [#/Vol] 9.91 10*3/uL High 1.45-7.50 [facility] Comment on above: Order Comment: Speci men Type: BLOOD SPECIMENOrdering Facility: [facility] [place] Address: [address] [place] [address] Performed By: #### 5 7021-8 ####[facility] LABCLIA [id number] [facility] [place] [address] [place] Neutrophils/100 WBC (Bld) 80.1 % Normal [facility] Comment on above: Order Comment: Speci men Type: BLOOD SPECIMENOrdering Facility: [facility] [place] Address: [address] [place] [address] Performed By: #### 5 7021-8 ####[facility] LABCLIA [id number] [place] [address] [place] Nucleated RBC (Bld) [#/Vol] 10*3/uL Normal <0.01 [facility] Comment on above: Order Comment: Speci men Type: BLOOD SPECIMENOrdering Facility: [facility] [place] Address: [address] [place] [address] Performed By: #### 5 7021-8 ####[facility] LABCLIA [id number] [place] [address] [place] Nucleated RBC/100 WBC (Bld) [Ratio] 0.0 /100 WBC Normal [facility] Comment on above: Order Comment: Speci men Type: BLOOD SPECIMENOrdering Facility: [facility] [place] Address: [address] [place] [address] Performed By: #### 5 7021-8 ####[facility] LABCLIA [id number] [place] [address] [place] Platelet mean volume (Bld) [Entitic vol] 10.7 fL Normal 9.0-12.7 [facility] Comment on above: Order Comment: Speci men Type: BLOOD SPECIMENOrdering Facility: [facility] [place] Address: [address] [place] [address] Performed By: #### 5 7021-8 ####[facility] LABIA [id number] [place] [address] [place] Platelets (Bld) [#/Vol] 225 10*3/uL Normal 150-400 [facility] Comment on above: Order Comment: Speci men Type: BLOOD SPECIMENOrdering Facility: [facility] [place] Address: [address] [place] [address] Performed By: #### 5 7021-8 ####[facility] LABCLIA [id number] [address] [address] [place] RBC (Bld) [#/Vol] 4.43 10*6/uL Normal 3.90-5.20 [facility] Comment on above: Order Comment: Speci men Type: BLOOD SPECIMENOrdering Facility: [facility] [place] Address: [address] [place] [address] Performed By: #### 5 7021-8 ####[facility] LABPEEWEE [id number] [place] [id number] [place] WBC (Bld) [#/Vol] 12.37 10*3/uL High 3.70-11.00 [facility] Comment on above: Order Comment: Speci men Type: BLOOD SPECIMENOrdering Facility: [facility] [place] Address: [address] [place] [address] Performed By: #### 5 7021-8 ####[facility] [id number] [place] [id number] [place] CNOVon 07-17-2025 CNOV Office Visit (INTMWS ) MICHAELA BRANDT ([id number]) 1940 F Date Time Provider Department 07/17/25 11:20 AM ANAID SANTIAGO INTMWS During your visit today, we recorded the following information about you: Pulse Respiration Blood pressure Weight 72/minute 16/minute 138/77 54.6 kg Anaid Santiago MD 07/17/2025 12:28 PM Signed We [...] You have a Lizarraga catheter in place. senior living will assist with catheter care. We discussed your pressure sores and wound care: - You have stage 2 pressure sores on your buttocks. These require regular care to prevent worsening. - I am sending a referral to the wound care clinic at [facility]. Please call the clinic to schedule an appointment as soon as possible. - senior living will assist with wound care, including cleaning [...] follow the therapy schedule they provide. - senior living and your caregiver will assist with mobility [...] This prescription will be sent to your [facility] pharmacy. We discussed additional recommendations: - Consider [...] appointment with the wound care clinic at [facility]. - Follow up with residential for catheter care, wound care, and enema [...] to help you recover and regain strength. Anaid Santiago MD 07/17/2025 1:07 PM Signed Reason for Visit Follow up HPI Michaela Brandt is an 84-year-old female, with a history of dementia, presenting with multiple falls, cystitis, and pressure ulcers. Michaela was admitted to [facility] on 06/20 and discharged on 06/25. [...] care by her insurance and stayed at [facility] a couple of weeks, but did not receive much physical therapy. Michaela's daughter is hopeful that with physical therapy at home, Michaela will improve. Michaela has a home health aide from [facility] who helps with (more content not included)... [facility] MICHAELA BRANDT ([id number]) 1940 F Date Time Provider Department 07/17/25 RENATE MONTGOMERY During your visit today, we recorded the following information about you: Renate Montgomery MSW 07/17/2025 3:31 PM Aleisha Guzman left message for return call in regards to medical alert button options for patient. Renate Montgomery MSW 07/21/2025 2:31 PM Aleisha Guzman spoke with patient daughter and she requests that SW either mail or My Chart the medical alert button options. Sw will send medical alert button options to patient daughter. Sw and daughter also discussed [facility] and [facility] as other home ostomy care nurse options to compare prices to [facility]. Osmany notes that she will compare prices of other home ostomy care nurse agencies. [facility] is coming out to see patient for PT and daughter is still waiting to hear when residential from [facility] will be seeing patient. 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 German requests call back at [phone]. 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 Normal [facility] 07-13-2025 CNPN Telephone (INTMWS) REXMICHAELA MARTINEZ ([id number]) 1940 F Date Time Provider Department 07/13/25 ANAID SANTIAGO INTMichaelleWS During your visit today, we recorded the following information about you: Porsha Vasquez RN 07/13/2025 4:34 PM Signed Berta with [facility] calling and asking if provider is agreeable to signing and following patient for PT, OT and ST orders? Berta states patient was discharged from [facility]. Had UTI, weakness. Please call Berta back at [phone]. 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] 06/03/2025 Encounter Status:Closed by MIKE GUO on 07/14/25 Normal [facility] Anion gap in Serum or Plasma Ordered By: Tanvir Allred on 06-30-2025 Anion gap [Moles/Vol] 8 mmol/L 5-15 [facility] BUN/creatinine ratioOrdered By: Tanvir Allred on 06-30-2025 Urea nitrogen/Creatinine [Mass ratio] 24.1 mg/mg High 10-20 [facility] Basic Metabolic Profile (BMP )on 06-30-2025 BUN/CRE 24.1 RATIO High - [facility] Comment on above: Order Comment: 109 Performed By: #### L 500.2500, L100.0500, L501.9310, L501.9520 ####[facility] [address] [place], [address] Calcium [Mass/Vol] 8.8 mg/dL Normal 7.6-11.0 [facility] Comment on above: Order Comment: 109 Performed By: #### L 500.2500, L100.0500, L501.9310, L501.9520 ####[facility] [address] [place], [address] Chloride [Moles/Vol] 103 mmol/L Normal 98-108 [facility] Comment on above: Order Comment: 109 Performed By: #### L 500.2500, L100.0500, L501.9310, L501.9520 ####[facility] [address] [place], [address] CO2 [Moles/Vol] 28.9 mmol/L Normal 21.0-32.0 [facility] Comment on above: Order Comment: 109 Performed By: #### L 500.2500, L100.0500, L501.9310, L501.9520 ####[facility] [address] [place], [address] Creatinine [Mass/Vol] 0.63 mg/dL Low 0.70-1.20 [facility] Comment on above: Order Comment: 109 Performed By: #### L 500.2500, L100.0500, L501.9310, L501.9520 ####[facility] [address] [place], [address] GAP 8 Normal 5-15 [facility] Comment on above: Order Comment: 109 Performed By: #### L 500.2500, L100.0500, L501.9310, L501.9520 ####[facility] [address] [place], [address] GFR/1.73 sq M.predicted among non-blacks MDRD (S/P/Bld) [Vol rate/Area] 88 mL/min/{1.73_m2} Normal >60 [facility] Comment on above: Order Comment: 109 Result Comment: mL/m in/1.73m2 CKD-EPI Creatinine Equation (2020) Performed By: #### L 500.2500, L100.0500, L501.9310, L501.9520 ####[facility] [address] [place], [address] Glucose [Mass/Vol] 95 mg/dL Normal 70-99 [facility] Comment on above: Order Comment: 109 Performed By: #### L 500.2500, L100.0500, L501.9310, L501.9520 ####[facility] [address] [place], [address] Potassium [Moles/Vol] 3.7 mmol/L Normal 3.3-5.1 [facility] Comment on above: Order Comment: 109 Performed By: #### L 500.2500, L100.0500, L501.9310, L501.9520 ####[facility] [address] [place], [address] Sodium [Moles/Vol] 140 mmol/L Normal 133-145 [facility] Comment on above: Order Comment: 109 Performed By: #### L 500.2500, L100.0500, L501.9310, L501.9520 ####[facility] [address] [place], [address] Urea nitrogen [Mass/Vol] 15 mg/dL Normal 4-19 [facility] Comment on above: Order Comment: 109 Performed By: #### L 500.2500, L100.0500, L501.9310, L501.9520 ####[facility] [address] [place], [address] CBC-Complete Blood Cnt No Di ffon 06-30-2025 Erythrocyte distribution width (RBC) [Ratio] 13.6 % Normal 11.6-14.6 [facility] Comment on above: Order Comment: 109 Performed By: #### L 500.2500, L100.0500, L501.9310, L501.9520 ####[facility] [address] [place], [address] Hematocrit (Bld) [Volume fraction] 32.8 % Low 37-47 [facility] Comment on above: Order Comment: 109 Performed By: #### L 500.2500, L100.0500, L501.9310, L501.9520 ####[facility] [address] [place], [address] Hemoglobin (Bld) [Mass/Vol] 11.0 g/dL Low 12.0-15.0 [facility] Comment on above: Order Comment: 109 Performed By: #### L 500.2500, L100.0500, L501.9310, L501.9520 ####[facility] [address] [place], [address] MCH (RBC) [Entitic mass] 29.6 pg Normal 27.0-32.0 [facility] Comment on above: Order Comment: 109 Performed By: #### L 500.2500, L100.0500, L501.9310, L501.9520 ####[facility] [address] [place], [address] MCHC (RBC) [Mass/Vol] 33.5 g/dL Normal 32-36 [facility] Comment on above: Order Comment: 109 Performed By: #### L 500.2500, L100.0500, L501.9310, L501.9520 ####[facility] [address] [place], [address] MCV (RBC) [Entitic vol] 88.4 fL Normal 81-99 [facility] Comment on above: Order Comment: 109 Performed By: #### L 500.2500, L100.0500, L501.9310, L501.9520 ####[facility] [address] [place], [address] Platelet mean volume (Bld) [Entitic vol] 9.9 fL Normal 6.2-12.0 [facility] Comment on above: Order Comment: 109 Performed By: #### L 500.2500, L100.0500, L501.9310, L501.9520 ####[facility] [address] [place], [address] Platelets (Bld) [#/Vol] 229 10*3/uL Normal 150-450 [facility] Comment on above: Order Comment: 109 Performed By: #### L 500.2500, L100.0500, L501.9310, L501.9520 ####[facility] [address] [place], [address] RBC (Bld) [#/Vol] 3.71 10*6/uL Low 4.2-5.4 [facility] Comment on above: Order Comment: 109 Performed By: #### L 500.2500, L100.0500, L501.9310, L501.9520 ####[facility] [address] [place], [address] RDW SD 43.3 fl Normal 35.1-43.9 [facility] Comment on above: Order Comment: 109 Performed By: #### L 500.2500, L100.0500, L501.9310, L501.9520 ####[facility] [address] [place], [place], [address] WBC (Bld) [#/Vol] 13.1 10*3/uL High 4.4-11.0 [facility] Comment on above: Order Comment: 109 Performed By: #### L 500.2500, L100.0500, L501.9310, L501.9520 ####[facility] [address] [place], [place], [address] Carbon dioxide, total [Moles /volume] in Central venous bloodOrdered By: Tanvir Allred on 06-30-2025 CO2 [Moles/Vol] 28.9 mmol/L 21.0-32.0 [facility] Chloride assayOrdered By: Zachary Allred on 06-30-2025 Chloride [Moles/Vol] 103 mmol/L 98-108 [facility] Erythrocyte distribution wid th ratioOrdered By: Tanvir Allred on 06-30-2025 Erythrocyte distribution width (RBC) [Ratio] 13.6 % 11.6-14.6 [facility] Erythrocyte distribution wid th standard deviationOrdered By: Tanvir Allred on 06-30-2025 Erythrocyte distribution width (RBC) [Ratio] 43.3 fl 35.1-43.9 [facility] Glomerular filtration rate ( GFR) estimation/1.73 sq m using serum, plasma, or whole bOrdered By: Tanvir Allred on 06-30-2025 GFR/1.73 sq M.predicted among non-blacks MDRD (S/P/Bld) [Vol rate/Area] 88 mL/min/{1.73_m2} >60 [facility] Comment on above: mL/min/1.73m2 CKD-EP I Creatinine Equation (2020) Hematocrit Auto (Bld) [Volum e fraction]Ordered By: Tanvir Allred on 06-30-2025 Hematocrit (Bld) [Volume fraction] 32.8 % Low 37-47 [facility] Hemoglobin measurementOrdere d By: Tanvir Allred on 06-30-2025 Hemoglobin (Bld) [Mass/Vol] 11.0 g/dL Low 12.0-15.0 [facility] MCV (mean corpuscular volume ) determinationOrdered By: Tanvir Allred on 06-30-2025 MCV (RBC) [Entitic vol] 88.4 fL 81-99 [facility] Mean corpuscular hemoglobin (MCH) determinationOrdered By: Tanvir Allred on 06-30-2025 MCH (RBC) [Entitic mass] 29.6 pg 27.0-32.0 [facility] Mean corpuscular hemoglobin concentration (MCHC) determinationOrdered By: Tanvir Allred on 06-30-2025 MCHC (RBC) [Mass/Vol] 33.5 g/dL 32-36 [facility] Mean platelet volume determi nationOrdered By: Tanvir Allred on 06-30-2025 Platelet mean volume (Bld) [Entitic vol] 9.9 fL 6.2-12.0 [facility] Platelet countOrdered By: Zachary Allred on 06-30-2025 Platelets (Bld) [#/Vol] 229 10*3/uL 150-450 [facility] Potassium measurement (mass/ volume)Ordered By: Tanvir Allred on 06-30-2025 Potassium (Unsp spec) [Mass/Vol] 3.7 mmol/L 3.3-5.1 [facility] RBC Auto (Bld) [#/Vol]Ordere d By: Tanvir Allred on 06-30-2025 RBC (Bld) [#/Vol] 3.71 10*6/uL Low 4.2-5.4 [facility] Serum creatinine measurement (mass/volume)Ordered By: Tanvir Allred on 06-30-2025 Creatinine [Mass/Vol] 0.63 mg/dL Low 0.70-1.20 [facility] Serum glucose measurement (m ass/volume)Ordered By: Tanvir Allred on 06-30-2025 Glucose [Mass/Vol] 95 mg/dL 70-99 [facility] Serum or plasma calcium thomas urement (mass/volume)Ordered By: Tanvir Allred on 06-30-2025 Calcium [Mass/Vol] 8.8 mg/dL 7.6-11.0 [facility] Serum or plasma urea nitroge n measurement (mass/volume)Ordered By: Tanvir Allred on 06-30-2025 Urea nitrogen [Mass/Vol] 15 mg/dL 4-19 [facility] Sodium levelOrdered By: Barry Allred on 06-30-2025 Sodium [Moles/Vol] 140 mmol/L 133-145 [facility] T4 Total, Thyroxinon 025 T4 [Mass/Vol] 6.4 ug/dL Normal 4.8-13.9 [facility] Comment on above: Order Comment: 109 Performed By: #### L 500.2500, L100.0500, L501.9310, L501.9520 ####[facility] [address] [place], [place], [address] TSH DL <= 0.005 mIU/L QnOrde red By: Tanvir Allred on 06-30-2025 TSH Qn 3.220 uIU/mL 0.300-4.200 [facility] Thyroid Stim Hormone (TSH)on 06-30-2025 TSH 3.220 uIU/mL Normal 0.300-4.200 [facility] Comment on above: Order Comment: 109 Performed By: #### L 500.2500, L100.0500, L501.9310, L501.9520 ####[facility] [address] [place], [place], [address] ThyroxineOrdered By: Tanvir hall on 06-30-2025 T4 [Mass/Vol] 6.4 ug/dL 4.8-13.9 [facility] White blood cell (WBC) count Ordered By: Tanvir Allred on 06-30-2025 WBC (Bld) [#/Vol] 13.1 10*3/uL High 4.4-11.0 [facility] Venous Duplex US - Kyle Extre mon 06-23-2025 Venous Duplex US - Kyle Extrem Normal [facility] Anion gap in Serum or Plasma Ordered By: Cindy Molina on 06-22-2025 Anion gap [Moles/Vol] 12 mmol/L 5-15 [facility] BUN/creatinine ratioOrdered By: Cindy Molina on 06-22-2025 Urea nitrogen/Creatinine [Mass ratio] 22.3 mg/mg High - [facility] Basic Metabolic Profile (BMP )on 06-22-2025 BUN/CRE 22.3 RATIO High - [facility] Comment on above: Performed By: #### L 500.2500, L100.0500 ####[facility] [address] [place], [address] Calcium [Mass/Vol] 8.5 mg/dL Normal 7.6-11.0 [facility] Comment on above: Performed By: #### L 500.2500, L100.0500 ####[facility] [address] [place], [address] Chloride [Moles/Vol] 103 mmol/L Normal 98-108 [facility] Comment on above: Performed By: #### L 500.2500, L100.0500 ####[facility] [address] [place], [address] CO2 [Moles/Vol] 22.8 mmol/L Normal 21.0-32.0 [facility] Comment on above: Performed By: #### L 500.2500, L100.0500 ####[facility] [address] [place], [address] Creatinine [Mass/Vol] 0.72 mg/dL Normal 0.70-1.20 [facility] Comment on above: Performed By: #### L 500.2500, L100.0500 ####[facility] [address] [place], [address] ECRCL 37.60 ml/min Low 50-250 [facility] Comment on above: Performed By: #### L 500.2500, L100.0500 ####[facility] [address] [place], [address] GAP 12 Normal 5-15 [facility] Comment on above: Performed By: #### L 500.2500, L100.0500 ####[facility] [address] [place], [address] GFR/1.73 sq M.predicted among non-blacks MDRD (S/P/Bld) [Vol rate/Area] 82 mL/min/{1.73_m2} Normal >60 [facility] Comment on above: Result Comment: mL/m in/1.73m2 CKD-EPI Creatinine Equation (2020) Performed By: #### L 500.2500, L100.0500 ####[facility] [address] [place], [address] Glucose [Mass/Vol] 94 mg/dL Normal 70-99 [facility] Comment on above: Performed By: #### L 500.2500, L100.0500 ####[facility] [address] [place], [address] Potassium [Moles/Vol] 3.4 mmol/L Normal 3.3-5.1 [facility] Comment on above: Performed By: #### L 500.2500, L100.0500 ####[facility] [address] [place], [address] Sodium [Moles/Vol] 137 mmol/L Normal 133-145 [facility] Comment on above: Performed By: #### L 500.2500, L100.0500 ####[facility] [address] [place], [address] Urea nitrogen [Mass/Vol] 16 mg/dL Normal 4-19 [facility] Comment on above: Performed By: #### L 500.2500, L100.0500 ####[facility] [address] [place], [address] CBC-Complete Blood Cnt No Di ffon 06-22-2025 Erythrocyte distribution width (RBC) [Ratio] 13.4 % Normal 11.6-14.6 [facility] Comment on above: Performed By: #### L 500.2500, L100.0500 ####[facility] [address] [place], [address] Hematocrit (Bld) [Volume fraction] 32.5 % Low 37-47 [facility] Comment on above: Performed By: #### L 500.2500, L100.0500 ####[facility] [address] [place], [address] Hemoglobin (Bld) [Mass/Vol] 11.3 g/dL Low 12.0-15.0 [facility] Comment on above: Performed By: #### L 500.2500, L100.0500 ####[facility] [address] [place], [address] MCH (RBC) [Entitic mass] 29.7 pg Normal 27.0-32.0 [facility] Comment on above: Performed By: #### L 500.2500, L100.0500 ####[facility] [address] [place], [address] MCHC (RBC) [Mass/Vol] 34.8 g/dL Normal 32-36 [facility] Comment on above: Performed By: #### L 500.2500, L100.0500 ####[facility] [address] [place], [address] MCV (RBC) [Entitic vol] 85.5 fL Normal 81-99 [facility] Comment on above: Performed By: #### L 500.2500, L100.0500 ####[facility] [address] [place], [address] Platelet mean volume (Bld) [Entitic vol] 10.3 fL Normal 6.2-12.0 [facility] Comment on above: Performed By: #### L 500.2500, L100.0500 ####[facility] [address] [place], [address] Platelets (Bld) [#/Vol] 181 10*3/uL Normal 150-450 [facility] Comment on above: Performed By: #### L 500.2500, L100.0500 ####[facility] [address] [place], [address] RBC (Bld) [#/Vol] 3.80 10*6/uL Low 4.2-5.4 [facility] Comment on above: Performed By: #### L 500.2500, L100.0500 ####[facility] [address] [place], [address] RDW SD 42.1 fl Normal 35.1-43.9 [facility] Comment on above: Performed By: #### L 500.2500, L100.0500 ####[facility] [address] [place], [address] WBC (Bld) [#/Vol] 9.4 10*3/uL Normal 4.4-11.0 [facility] Comment on above: Performed By: #### L 500.2500, L100.0500 ####[facility] [address] [place], [address] Carbon dioxide, total [Moles /volume] in Central venous bloodOrdered By: Cindy Molina on 06-22-2025 CO2 [Moles/Vol] 22.8 mmol/L 21.0-32.0 [facility] Chloride assayOrdered By: Octavio Molina on 06-22-2025 Chloride [Moles/Vol] 103 mmol/L 98-108 [facility] Erythrocyte distribution wid th ratioOrdered By: Cindy Molina on 06-22-2025 Erythrocyte distribution width (RBC) [Ratio] 13.4 % 11.6-14.6 [facility] Erythrocyte distribution wid th standard deviationOrdered By: Cindy Molina on 06-22-2025 Erythrocyte distribution width (RBC) [Ratio] 42.1 fl 35.1-43.9 [facility] Glomerular filtration rate ( GFR) estimation/1.73 sq m using serum, plasma, or whole bOrdered By: Cindy Molina on 06-22-2025 GFR/1.73 sq M.predicted among non-blacks MDRD (S/P/Bld) [Vol rate/Area] 82 mL/min/{1.73_m2} >60 [facility] Comment on above: mL/min/1.73m2 CKD-EP I Creatinine Equation (2020) Hematocrit Auto (Bld) [Volum e fraction]Ordered By: Cindy Molina on 06-22-2025 Hematocrit (Bld) [Volume fraction] 32.5 % Low 37-47 [facility] Hemoglobin measurementOrdere d By: Cindy Molina on 06-22-2025 Hemoglobin (Bld) [Mass/Vol] 11.3 g/dL Low 12.0-15.0 [facility] MCV (mean corpuscular volume ) determinationOrdered By: Cindy Molina on 06-22-2025 MCV (RBC) [Entitic vol] 85.5 fL 81-99 [facility] Mean corpuscular hemoglobin (MCH) determinationOrdered By: Cindy Molina on 06-22-2025 MCH (RBC) [Entitic mass] 29.7 pg 27.0-32.0 [facility] Mean corpuscular hemoglobin concentration (MCHC) determinationOrdered By: Cindy Molina on 06-22-2025 MCHC (RBC) [Mass/Vol] 34.8 g/dL 32-36 [facility] Mean platelet volume determi nationOrdered By: Cindy Molina on 06-22-2025 Platelet mean volume (Bld) [Entitic vol] 10.3 fL 6.2-12.0 [facility] Platelet countOrdered By: Octavio Molina on 06-22-2025 Platelets (Bld) [#/Vol] 181 10*3/uL 150-450 [facility] Potassium measurement (mass/ volume)Ordered By: Cindy Molina on 06-22-2025 Potassium (Unsp spec) [Mass/Vol] 3.4 mmol/L 3.3-5.1 [facility] RBC Auto (Bld) [#/Vol]Ordere d By: Cindy Molina on 06-22-2025 RBC (Bld) [#/Vol] 3.80 10*6/uL Low 4.2-5.4 [facility] Serum creatinine measurement (mass/volume)Ordered By: Cindy Molina on 06-22-2025 Creatinine [Mass/Vol] 0.72 mg/dL 0.70-1.20 [facility] Serum glucose measurement (m ass/volume)Ordered By: Cindy Molina on 06-22-2025 Glucose [Mass/Vol] 94 mg/dL 70-99 [facility] Serum or plasma calcium thomas urement (mass/volume)Ordered By: Cindy Molina on 06-22-2025 Calcium [Mass/Vol] 8.5 mg/dL 7.6-11.0 [facility] Serum or plasma urea nitroge n measurement (mass/volume)Ordered By: Cindy Molina on 06-22-2025 Urea nitrogen [Mass/Vol] 16 mg/dL 4-19 [facility] Sodium levelOrdered By: Carlos Molina on 06-22-2025 Sodium [Moles/Vol] 137 mmol/L 133-145 [facility] Urine Cultureon 06-22-2025 URC Normal [facility] Comment on above: Performed By: #### M 100.2200 ####[facility] [address] [place], [place], [id number] White blood cell (WBC) count Ordered By: Cindy Molina on 06-22-2025 WBC (Bld) [#/Vol] 9.4 10*3/uL 4.4-11.0 [facility] Absolute lymphocyte countOrd ered By: Cindy Molina on 06-21-2025 Lymphocytes Auto (Unsp spec) [#/Vol] 1.40 10*3/uL 0.83-4.51 [facility] Absolute neutrophil countOrd ered By: Cindy Molina on 06-21-2025 Neutrophils (Bld) [#/Vol] 11.3 10*3/uL High 2.0-7.7 [facility] Automated lymphocyte count a s percentage of total leukocytesOrdered By: Cindy Molina on 06-21-2025 Lymphocytes/100 WBC Auto (Unsp spec) 9.7 % Low 19-41 [facility] Basophil percentageOrdered B y: Cindy Molina on 06-21-2025 Basophils/100 WBC (Bld) 0.6 % 0-1 [facility] Bedside Glucoseon 06-21-2025 FINGERSTICK GLU 95 mg/dL Normal 74-106 [facility] Comment on above: Result Comment: MOMO BLEDSOE OF PATIENT CARE PER NURSING PROTOCOL Performed By: #### L 501.080 ####[facility] [address] [place], [address] Bilirubin, totalOrdered By: Cindy Molina on 06-21-2025 Bilirubin [Mass/Vol] 1.46 mg/dL High 0.00-1.30 [facility] CBC W/Diff, Automatedon Absolute Lymph 1.40 X10 3/uL Normal 0.83-4.51 [facility] Comment on above: Performed By: #### L 500.4050, L100.0100, L501.9520 ####[facility] [address] [place], [address] Absolute Neut 11.3 X10 3/uL High 2.0-7.7 [facility] Comment on above: Performed By: #### L 500.4050, L100.0100, L501.9520 ####[facility] [address] [place], [address] Basophils/100 WBC (Bld) 0.6 % Normal 0-1 [facility] Comment on above: Performed By: #### L 500.4050, L100.0100, L501.9520 ####[facility] [address] [place], [address] Eosinophils/100 WBC (Bld) 1.6 % Normal 0-5 [facility] Comment on above: Performed By: #### L 500.4050, L100.0100, L501.9520 ####[facility] [address] [place], [address] Erythrocyte distribution width (RBC) [Ratio] 13.6 % Normal 11.6-14.6 [facility] Comment on above: Performed By: #### L 500.4050, L100.0100, L501.9520 ####[facility] [address] [place], [address] Hematocrit (Bld) [Volume fraction] 34.9 % Low 37-47 [facility] Comment on above: Performed By: #### L 500.4050, L100.0100, L501.9520 ####[facility] [address] [place], [address] Hemoglobin (Bld) [Mass/Vol] 11.9 g/dL Low 12.0-15.0 [facility] Comment on above: Performed By: #### L 500.4050, L100.0100, L501.9520 ####[facility] [address] [place], [address] IG% 0.800 Normal 0.0-0.9 [facility] Comment on above: Result Comment: IG% - Immature Granulocytes (promyelocytes, myelocytes andmetamyelocytes) > 1% indicates that a LEFT SHIFT is Present. Performed By: #### L 500.4050, L100.0100, L501.9520 ####[facility] [address] [place], [address] Lymphocytes/100 WBC (Bld) 9.7 % Low 19-41 [facility] Comment on above: Performed By: #### L 500.4050, L100.0100, L501.9520 ####[facility] [address] [place], [address] MCH (RBC) [Entitic mass] 30.0 pg Normal 27.0-32.0 [facility] Comment on above: Performed By: #### L 500.4050, L100.0100, L501.9520 ####[facility] [address] [place], [address] MCHC (RBC) [Mass/Vol] 34.1 g/dL Normal 32-36 [facility] Comment on above: Performed By: #### L 500.4050, L100.0100, L501.9520 ####[facility] [address] [place], [address] MCV (RBC) [Entitic vol] 87.9 fL Normal 81-99 [facility] Comment on above: Performed By: #### L 500.4050, L100.0100, L501.9520 ####[facility] [address] [place], [address] Monocytes/100 WBC (Bld) 9.0 % Normal 0-10 [facility] Comment on above: Performed By: #### L 500.4050, L100.0100, L501.9520 ####[facility] [address] [place], [address] Neutrophils/100 WBC (Bld) 78.3 % High 47-70 [facility] Comment on above: Performed By: #### L 500.4050, L100.0100, L501.9520 ####[facility] [address] [place], [address] Nucleated RBC (Bld) [#/Vol] 0 10*3/uL Normal 0-5 [facility] Comment on above: Performed By: #### L 500.4050, L100.0100, L501.9520 ####[facility] [address] [place], [address] Platelet mean volume (Bld) [Entitic vol] 10.9 fL Normal 6.2-12.0 [facility] Comment on above: Performed By: #### L 500.4050, L100.0100, L501.9520 ####[facility] [address] [place], [address] Platelets (Bld) [#/Vol] 203 10*3/uL Normal 150-450 [facility] Comment on above: Performed By: #### L 500.4050, L100.0100, L501.9520 ####[facility] [address] [place], [address] RBC (Bld) [#/Vol] 3.97 10*6/uL Low 4.2-5.4 [facility] Comment on above: Performed By: #### L 500.4050, L100.0100, [id number] ####[facility] [address] [place], [address] RDW SD 43.8 fl Normal 35.1-43.9 [facility] Comment on above: Performed By: #### L 500.4050, L100.0100, L501.9520 ####[facility] [address] [place], [address] WBC (Bld) [#/Vol] 14.5 10*3/uL High 4.4-11.0 [facility] Comment on above: Performed By: #### L 500.4050, L100.0100, L501.9520 ####[facility] [address] [place], [address] Comprehensive Metabolic Prof [facility] 06-21-2025 Albumin [Mass/Vol] 3.4 g/dL Normal 3.4-4.8 [facility] Comment on above: Performed By: #### L 500.4050, L100.0100, L501.9520 ####[facility] [address] [place], [address] Albumin/Globulin [Mass ratio] 1.3 {ratio} Normal 0.9-2.4 [facility] Comment on above: Performed By: #### L 500.4050, L100.0100, L501.9520 ####[facility] [address] [place], [address] ALK PHOS 94 U/L Normal 35-104 [facility] Comment on above: Performed By: #### L 500.4050, L100.0100, L501.9520 ####[facility] [address] [place], [address] ALT [Catalytic activity/Vol] 16 U/L Normal <=34 [facility] Comment on above: Performed By: #### L 500.4050, L100.0100, L501.9520 ####[facility] [address] [place], [address] AST [Catalytic activity/Vol] 44 U/L High <=31 [facility] Comment on above: Performed By: #### L 500.4050, L100.0100, L501.9520 ####[facility] [address] [place], [address] Bilirubin [Mass/Vol] 1.46 mg/dL High 0.00-1.30 [facility] Comment on above: Performed By: #### L 500.4050, L100.0100, L501.9520 ####[facility] [address] [place], [address] BUN/CRE 22.2 RATIO High 10-20 [facility] Comment on above: Performed By: #### L 500.4050, L100.0100, L501.9520 ####[facility] [address] [place], [address] Calcium [Mass/Vol] 8.8 mg/dL Normal 7.6-11.0 [facility] Comment on above: Performed By: #### L 500.4050, L100.0100, L501.9520 ####[facility] [address] [place], [address] Chloride [Moles/Vol] 103 mmol/L Normal 98-108 [facility] Comment on above: Performed By: #### L 500.4050, L100.0100, L501.9520 ####[facility] [address] [place], [address] CO2 [Moles/Vol] 23.9 mmol/L Normal 21.0-32.0 [facility] Comment on above: Performed By: #### L 500.4050, L100.0100, L501.9520 ####[facility] [address] [place], [address] Creatinine [Mass/Vol] 0.92 mg/dL Normal 0.70-1.20 [facility] Comment on above: Performed By: #### L 500.4050, L100.0100, L501.9520 ####[facility] [address] [place], [address] ECRCL 32.70 ml/min Low 50-250 [facility] Comment on above: Performed By: #### L 500.4050, L100.0100, L501.9520 ####[facility] [address] [place], [address] GAP 12 Normal 5-15 [facility] Comment on above: Performed By: #### L 500.4050, L100.0100, L501.9520 ####[facility] [address] [place], [address] GFR/1.73 sq M.predicted among non-blacks MDRD (S/P/Bld) [Vol rate/Area] 62 mL/min/{1.73_m2} Normal >60 [facility] Comment on above: Result Comment: mL/m in/1.73m2 CKD-EPI Creatinine Equation (2020) Performed By: #### L 500.4050, L100.0100, L501.9520 ####[facility] [address] [place], [address] Globulin (S) [Mass/Vol] 2.5 g/dL Normal 2.2-4.2 [facility] Comment on above: Performed By: #### L 500.4050, L100.0100, L501.9520 ####[facility] [address] [place], [address] Glucose [Mass/Vol] 93 mg/dL Normal 70-99 [facility] Comment on above: Performed By: #### L 500.4050, L100.0100, L501.9520 ####[facility] [address] [place], [address] Potassium [Moles/Vol] 3.5 mmol/L Normal 3.3-5.1 [facility] Comment on above: Performed By: #### L 500.4050, L100.0100, L501.9520 ####[facility] [address] [place], [address] Sodium [Moles/Vol] 139 mmol/L Normal 133-145 [facility] Comment on above: Performed By: #### L 500.4050, L100.0100, L501.9520 ####[facility] [address] [place], [address] T PROT 5.9 g/dL Normal 5.9-8.4 [facility] Comment on above: Performed By: #### L 500.4050, L100.0100, L501.9520 ####[facility] [address] [place], [address] Urea nitrogen [Mass/Vol] 20 mg/dL High 4-19 [facility] Comment on above: Performed By: #### L 500.4050, L100.0100, L501.9520 ####[facility] [address] [place], [address] Eosinophil percentageOrdered By: Cindy Molina on 06-21-2025 Eosinophils/100 WBC (Bld) 1.6 % 0-5 [facility]dered By: Cindy Molina on 06-21-2025 Glucose [Mass/Vol] 95 mg/dL 74-106 [facility] Comment on above: MANAGEMENT OF PATIEN T CARE PER NURSING PROTOCOL Immature granulocytes/100 WB C Auto (Bld)Ordered By: Cindy Molina on 06-21-2025 Immature granulocytes/100 WBC (Bld) 0.800 % 0.0-0.9 [facility] Comment on above: IG% - Immature Granu locytes (promyelocytes, myelocytes and metamyelocytes) > 1% indicates that a LEFT SHIFT is Present. Laboratory - Chemistry and C hemistry - challengeOrdered By: Cindy Molina on 06-21-2025 AST [Catalytic activity/Vol] 44 U/L High <32 [facility] Monocyte percentageOrdered B y: Cindy Molina on 06-21-2025 Monocytes/100 WBC (Bld) 9.0 % 0-10 [facility] Neutrophil percentageOrdered By: Cindy Molina on 06-21-2025 Neutrophils/100 WBC (Bld) 78.3 % High 47-70 [facility] Nucleated red blood cell per centageOrdered By: Cindy Molina on 06-21-2025 Nucleated RBC/100 WBC (Bld) [Ratio] 0 % 0-5 [facility] Serum globulin measurementOr dered By: Cindy Molina on 06-21-2025 Globulin (S) [Mass/Vol] 2.5 g/dL 2.2-4.2 [facility] Serum or plasma alanine tillman otransferase (ALT) measurementOrdered By: Cindy Molina on 06-21-2025 ALT [Catalytic activity/Vol] 16 U/L <35 [facility] Serum or plasma albumin thomas urement (mass/volume)Ordered By: Cindy Molina on 06-21-2025 Albumin [Mass/Vol] 3.4 g/dL 3.4-4.8 [facility] Serum or plasma albumin/glob ulin mass ratioOrdered By: Cindy Molina on 06-21-2025 Albumin/Globulin [Mass ratio] 1.3 {ratio} 0.9-2.4 [facility] Serum or plasma alkaline mariah sphatase measurementOrdered By: Cindy Molina on 06-21-2025 ALP [Catalytic activity/Vol] 94 U/L 35-104 [facility] TSH DL <= 0.005 mIU/L QnOrde red By: Cindy Molina on 06-21-2025 TSH Qn 1.600 uIU/mL 0.300-4.200 [facility] Thyroid Stim Hormone (TSH)on 06-21-2025 TSH 1.600 uIU/mL Normal 0.300-4.200 [facility] Comment on above: Performed By: #### L 500.4050, L100.0100, L501.9520 ####[facility] [address] [place], [address] Total proteinOrdered By: Milan Molina on 06-21-2025 Protein [Mass/Vol] 5.9 g/dL 5.9-8.4 [facility] 12 Lead EKGon 06-20-2025 12 Lead EKG Normal [facility] Absolute lymphocyte countOrd ered By: Wesley Jones on 06-20-2025 Lymphocytes Auto (Unsp spec) [#/Vol] 0.99 10*3/uL 0.83-4.51 [facility] Absolute neutrophil countOrd ered By: Wesley Jones on 06-20-2025 Neutrophils (Bld) [#/Vol] 25.4 10*3/uL High 2.0-7.7 [facility] Activated partial thrombopla stin time (aPTT) in platelet poor plasma by coagulation aOrdered By: Wesley Jones on 06-20-2025 aPTT Coag (PPP) [Time] 35.6 s 24.1-36.2 [facility] Anion gap in Serum or Plasma Ordered By: Wesley Jones on 06-20-2025 Anion gap [Moles/Vol] 15 mmol/L 5-15 [facility] Automated lymphocyte count a s percentage of total leukocytesOrdered By: Wesley Jones on 06-20-2025 Lymphocytes/100 WBC Auto (Unsp spec) 3.5 % Low 19-41 [facility] BUN/creatinine ratioOrdered By: Wesley Jones on 06-20-2025 Urea nitrogen/Creatinine [Mass ratio] 18.1 mg/mg - [facility] Basic Metabolic Profile (BMP )on 06-20-2025 BUN/CRE 18.1 RATIO Normal - [facility] Comment on above: Performed By: #### L 300.3900, L100.0100, L500.3400, L500.2500, L300.4310 ####[facility] [address] [facility] [address] Calcium [Mass/Vol] 9.9 mg/dL Normal 7.6-11.0 [facility] Comment on above: Performed By: #### L 300.3900, L100.0100, L500.3400, L500.2500, L300.4310 ####[facility] [address] [place], [address] Chloride [Moles/Vol] 99 mmol/L Normal 98-108 [facility] Comment on above: Performed By: #### L 300.3900, L100.0100, L500.3400, L500.2500, L300.4310 ####[facility] [address] [place], [address] CO2 [Moles/Vol] 24.3 mmol/L Normal 21.0-32.0 [facility] Comment on above: Performed By: #### L 300.3900, L100.0100, L500.3400, L500.2500, L300.4310 ####[facility] [address] [place], [address] Creatinine [Mass/Vol] 0.93 mg/dL Normal 0.70-1.20 [facility] Comment on above: Performed By: #### L 300.3900, L100.0100, L500.3400, L500.2500, L300.4310 ####[facility] [address] [place], [address] ECRCL 32.34 ml/min Low 50-250 [facility] Comment on above: Performed By: #### L 300.3900, L100.0100, L500.3400, L500.2500, L300.4310 ####[facility] [address] [place], [address] GAP 15 Normal 5-15 [facility] Comment on above: Performed By: #### L 300.3900, L100.0100, L500.3400, L500.2500, L300.4310 ####[facility] [address] [place], [address] GFR/1.73 sq M.predicted among non-blacks MDRD (S/P/Bld) [Vol rate/Area] 60 mL/min/{1.73_m2} Normal >60 [facility] Comment on above: Result Comment: mL/m in/1.73m2 CKD-EPI Creatinine Equation (2020) Performed By: #### L 300.3900, L100.0100, L500.3400, L500.2500, L300.4310 ####[facility] [address] [place], [address] Glucose [Mass/Vol] 149 mg/dL High 70-99 [facility] Comment on above: Performed By: #### L 300.3900, L100.0100, L500.3400, L500.2500, L300.4310 ####[facility] [address] [place], [address] Potassium [Moles/Vol] 3.7 mmol/L Normal 3.3-5.1 [facility] Comment on above: Performed By: #### L 300.3900, L100.0100, L500.3400, L500.2500, L300.4310 ####[facility] [address] [place], [address] Sodium [Moles/Vol] 138 mmol/L Normal 133-145 [facility] Comment on above: Performed By: #### L 300.3900, L100.0100, L500.3400, L500.2500, L300.4310 ####[facility] [address] [place], [address] Urea nitrogen [Mass/Vol] 17 mg/dL Normal 4-19 [facility] Comment on above: Performed By: #### L 300.3900, L100.0100, L500.3400, L500.2500, L300.4310 ####[facility] [address] [place], [address] Basophil percentageOrdered B y: Wesley Jones on 06-20-2025 Basophils/100 WBC (Bld) 0.3 % 0-1 [facility] Bilirubin Test strip Ql (U)O rdered By: Wseley Jones on 06-20-2025 Bilirubin Ql (U) Negative Negative [facility] Bilirubin directOrdered By: Wesley Jones on 06-20-2025 Bilirubin.direct [Mass/Vol] 0.85 mg/dL High 0.00-0.30 [facility] Bilirubin, totalOrdered By: Wesley Jones on 06-20-2025 Bilirubin [Mass/Vol] 2.15 mg/dL High 0.00-1.30 [facility] Blood manual differential co mment interpretation (narrative result)Ordered By: Wesley Jones on 06-20-2025 Manual differential comment José Miguel (Bld) [Interp] See comment [facility] Comment on above: NEUTROPHILIA Brain/Head without Contrasto n 06-20-2025 Brain/Head without Contrast Normal [facility] CBC W/Diff, Automatedon SMEAR COMMENT Normal [facility] Comment on above: Result Comment: NEUT ROPHILIA Performed By: #### L 300.3900, L100.0100, L500.3400, L500.2500, L300.4310 ####[facility] [address] [place], [place], [address] CPK Total, Creatine Kinaseon 06-20-2025 CPK TOTAL 914 U/L High 24-195 [facility] Comment on above: Performed By: #### L 501.3620 ####[facility] [address] [place], [place], [address] CT Chest, Abd, Pel w/Contras ton 06-20-2025 CT Chest, Abd, Pel w/Contrast Normal [facility] Carbon dioxide, total [Moles /volume] in Central venous bloodOrdered By: Wesley Jones on 06-20-2025 CO2 [Moles/Vol] 24.3 mmol/L 21.0-32.0 [facility] Chloride assayOrdered By: Bridger Jones on 06-20-2025 Chloride [Moles/Vol] 99 mmol/L 98-108 [facility] Elbow min 3 Viewson 06-20-20 25 Elbow min 3 Views Normal [facility] Emergency Department Summary on 06-20-2025 Emergency Department Summary Normal [facility] Eosinophil percentageOrdered By: Wesley Jones on 06-20-2025 Eosinophils/100 WBC (Bld) 0.0 % 0-5 [facility] Erythrocyte distribution wid th ratioOrdered By: Wesley Jones on 06-20-2025 Erythrocyte distribution width (RBC) [Ratio] 13.5 % 11.6-14.6 [facility] Erythrocyte distribution wid th standard deviationOrdered By: Wesley Jones on 06-20-2025 Erythrocyte distribution width (RBC) [Ratio] 42.5 fl 35.1-43.9 [facility] Glomerular filtration rate ( GFR) estimation/1.73 sq m using serum, plasma, or whole bOrdered By: Wesley Jones on 06-20-2025 GFR/1.73 sq M.predicted among non-blacks MDRD (S/P/Bld) [Vol rate/Area] 60 mL/min/{1.73_m2} >60 [facility] Comment on above: mL/min/1.73m2 CKD-EP I Creatinine Equation (2020) H AND P Exam - [facility] 06-20-2025 H&P Exam - Hospitalist Normal [facility] HIP, UNI W/ Pelvis 2-3 Views on 06-20-2025 HIP, UNI W/ Pelvis 2-3 Views Normal [facility] Hematocrit Auto (Bld) [Volum e fraction]Ordered By: Wesley Jones on 06-20-2025 Hematocrit (Bld) [Volume fraction] 41.5 % 37-47 [facility] Hemoglobin measurementOrdere d By: Wesley Jones on 06-20-2025 Hemoglobin (Bld) [Mass/Vol] 14.3 g/dL 12.0-15.0 [facility] Immature granulocytes/100 WB C Auto (Bld)Ordered By: Wesley Jones on 06-20-2025 Immature granulocytes/100 WBC (Bld) 1.400 % High 0.0-0.9 [facility] Comment on above: IG% - Immature Granu locytes (promyelocytes, myelocytes and metamyelocytes) > 1% indicates that a LEFT SHIFT is Present. International normalized rat io (INR) calculationOrdered By: Wesley Jones on 06-20-2025 INR Coag (Bld) [Relative time] 1.6 {INR} [facility] [facility] Ketones Test strip Ql (U)Ord ered By: Wesley Jones on 06-20-2025 Ketones Ql (U) 5 mg/dl High Negative [facility] Knee 1 or 2 Viewson 06-20-20 25 Knee 1 or 2 Views Normal [facility] Laboratory - Chemistry and C hemistry - challengeOrdered By: Wesley Jones on 06-20-2025 AST [Catalytic activity/Vol] 47 U/L High <32 [facility] Liver Profileon 06-20-2025 Albumin [Mass/Vol] 4.3 g/dL Normal 3.4-4.8 [facility] Comment on above: Performed By: #### L 300.3900, L100.0100, L500.3400, L500.2500, L300.4310 ####[facility] [address] [place], [place], [address] ALK PHOS 121 U/L High 35-104 [facility] Comment on above: Performed By: #### L 300.3900, L100.0100, L500.3400, L500.2500, L300.4310 ####[facility] [address] [place], [address] ALT [Catalytic activity/Vol] 19 U/L Normal <=34 [facility] Comment on above: Performed By: #### L 300.3900, L100.0100, L500.3400, L500.2500, L300.4310 ####[facility] [address] [place], [address] AST [Catalytic activity/Vol] 47 U/L High <=31 [facility] Comment on above: Performed By: #### L 300.3900, L100.0100, L500.3400, L500.2500, L300.4310 ####[facility] [address] [place], [address] Bilirubin [Mass/Vol] 2.15 mg/dL High 0.00-1.30 [facility] Comment on above: Performed By: #### L 300.3900, L100.0100, L500.3400, L500.2500, L300.4310 ####[facility] [address] [place], [address] Bilirubin.direct [Mass/Vol] 0.85 mg/dL High 0.00-0.30 [facility] Comment on above: Performed By: #### L 300.3900, L100.0100, L500.3400, L500.2500, L300.4310 ####[facility] [address] [place], [address] Globulin (S) [Mass/Vol] 3.5 g/dL Normal 2.2-4.2 [facility] Comment on above: Performed By: #### L 300.3900, L100.0100, L500.3400, L500.2500, L300.4310 ####[facility] [address] [place], [address] T PROT 7.7 g/dL Normal 5.9-8.4 [facility] Comment on above: Performed By: #### L 300.3900, L100.0100, L500.3400, L500.2500, L300.4310 ####[facility] [address] [place], [address] MCV (mean corpuscular volume ) determinationOrdered By: Wesley Jones on 06-20-2025 MCV (RBC) [Entitic vol] 87.0 fL 81-99 [facility] Mean corpuscular hemoglobin (MCH) determinationOrdered By: Wesley Jones on 06-20-2025 MCH (RBC) [Entitic mass] 30.0 pg 27.0-32.0 [facility] Mean corpuscular hemoglobin concentration (MCHC) determinationOrdered By: Wesley Jones on 06-20-2025 MCHC (RBC) [Mass/Vol] 34.5 g/dL 32-36 [facility] Mean platelet volume determi nationOrdered By: Wesley Jones on 06-20-2025 Platelet mean volume (Bld) [Entitic vol] 10.6 fL 6.2-12.0 [facility] Microscopic analysis of urin e for red blood cells (RBC)Ordered By: Wesley Jones on 06-20-2025 Microscopic analysis of urine for red blood cells (RBC) 10-25 SEEN /hpf 0-5 [facility] Monocyte percentageOrdered B y: Wesley Jones on 06-20-2025 Monocytes/100 WBC (Bld) 5.6 % 0-10 [facility] Mucus LM Ql (Urine sed)Order ed By: Wesley Jones on 06-20-2025 Mucus Ql (Urine sed) 0 SEEN /hpf [facility] Neutrophil percentageOrdered By: Wesley Jones on 06-20-2025 Neutrophils/100 WBC (Bld) 89.2 % High 47-70 [facility] Nitrite Test strip Ql (U)Ord ered By: Wesley Jones on 06-20-2025 Nitrite Ql (U) Positive High Negative [facility] Nucleated red blood cell per centageOrdered By: Wesley Jones on 06-20-2025 Nucleated RBC/100 WBC (Bld) [Ratio] 0 % 0-5 [facility] Partial Thromboplast Timeon 06-20-2025 aPTT Coag (Bld) [Time] 35.6 s Normal 24.1-36.2 [facility] Comment on above: Performed By: #### L 300.3900, L100.0100, L500.3400, L500.2500, L300.4310 ####[facility] [address] [place], [address] Platelet countOrdered By: Bridger Jones on 06-20-2025 Platelets (Bld) [#/Vol] 252 10*3/uL 150-450 [facility] Potassium measurement (mass/ volume)Ordered By: Wesley Jones on 06-20-2025 Potassium (Unsp spec) [Mass/Vol] 3.7 mmol/L 3.3-5.1 [facility] Protein Test strip Ql (U)Ord ered By: Wesley Jones on 06-20-2025 Protein Ql (U) 30 mg/dl High Negative [facility] Prothrombin Time w/INRon INR Coag (PPP) [Relative time] 1.6 {INR} Normal [facility] Comment on above: Performed By: #### L 300.3900, L100.0100, L500.3400, L500.2500, L300.4310 ####[facility] [address] [place], [address] PT Coag (PPP) [Time] 19.6 s High 11.7-14.9 [facility] Comment on above: Performed By: #### L 300.3900, L100.0100, L500.3400, L500.2500, L300.4310 ####[facility] [address] [place], [address] Prothrombin timeOrdered By: Wesley Jones on 06-20-2025 PT Coag (PPP) [Time] 19.6 s High 11.7-14.9 [facility] RBC Auto (Bld) [#/Vol]Ordere d By: Wesley Jones on 06-20-2025 RBC (Bld) [#/Vol] 4.77 10*6/uL 4.2-5.4 [facility] Serum creatinine measurement (mass/volume)Ordered By: Wesley Jones on 06-20-2025 Creatinine [Mass/Vol] 0.93 mg/dL 0.70-1.20 [facility] Serum globulin measurementOr dered By: Wesley Jones on 06-20-2025 Globulin (S) [Mass/Vol] 3.5 g/dL 2.2-4.2 [facility] Serum glucose measurement (m ass/volume)Ordered By: Wesley Jones on 06-20-2025 Glucose [Mass/Vol] 149 mg/dL High 70-99 [facility] Serum or plasma alanine tillman otransferase (ALT) measurementOrdered By: Wesley Jones on 06-20-2025 ALT [Catalytic activity/Vol] 19 U/L <35 [facility] Serum or plasma albumin thomas urement (mass/volume)Ordered By: Wesley Jones on 06-20-2025 Albumin [Mass/Vol] 4.3 g/dL 3.4-4.8 [facility] Serum or plasma alkaline mariah sphatase measurementOrdered By: Wesley Jones on 06-20-2025 ALP [Catalytic activity/Vol] 121 U/L High 35-104 [facility] Serum or plasma calcium thomas urement (mass/volume)Ordered By: Wesley Jones on 06-20-2025 Calcium [Mass/Vol] 9.9 mg/dL 7.6-11.0 [facility] Serum or plasma creatine kin ase activityOrdered By: Wesley Jones on 06-20-2025 CK [Catalytic activity/Vol] 914 U/L High 24-195 [facility] Serum or plasma urea nitroge n measurement (mass/volume)Ordered By: Wesley Jones on 06-20-2025 Urea nitrogen [Mass/Vol] 17 mg/dL 4-19 [facility] Sodium levelOrdered By: Kingston Jones on 06-20-2025 Sodium [Moles/Vol] 138 mmol/L 133-145 [facility] Spine Cervical without Contr ason 06-20-2025 Spine Cervical without Contras Normal [facility] Squamous epithelial cells de tection in urine sediment by light microscopyOrdered By: Wesley Jones on 06-20-2025 Epithelial cells.squamous LM Ql (Urine sed) 0-5 SEEN /hpf 5-10 [facility] Total proteinOrdered By: Dimple Jones on 06-20-2025 Protein [Mass/Vol] 7.7 g/dL 5.9-8.4 [facility] Urinalysis, Completeon 06-20 BACTERIA 1+ /hpf Normal None Seen [facility] Comment on above: Order Comment: CLEAN CATCH Performed By: #### L 400.0001 ####[facility] [address] [place], [address] EPI,SQUAMOUS 0-5 SEEN Normal 5-10 [facility] Comment on above: Order Comment: CLEAN CATCH Performed By: #### L 400.0001 ####[facility] [address] [place], [address] RBC 10-25 SEEN Normal 0-5 [facility] Comment on above: Order Comment: CLEAN CATCH Performed By: #### L 400.0001 ####[facility] [address] [place], [address] Mucus Ql (Urine sed) 0 SEEN Normal [facility] Comment on above: Order Comment: CLEAN CATCH Performed By: #### L 400.0001 ####[facility] [address] [place], [address] WBC 0 SEEN Normal 0-5 [facility] Comment on above: Order Comment: CLEAN CATCH Performed By: #### L 400.0001 ####[facility] [address] [place], [address] Urine clarityOrdered By: Dimple Jones on 06-20-2025 Clarity (U) Clear Clear [facility] Urine color determinationOrd ered By: Wesley Jones on 06-20-2025 Color (U) Yellow Yellow [facility] Urine cultureOrdered By: Dimple Jones on 06-20-2025 Bacteria identified Cx Nom (U) Escherichia coli Abnormal [facility] Urine glucose detectionOrder ed By: Wesley Jones on 06-20-2025 Glucose Ql (U) Normal mg/dl Normal [facility] Urine leukocyte esterase det ection by dipstickOrdered By: Wesley Jones on 06-20-2025 Leukocyte esterase Test strip Ql (U) 100 /ul High Negative [facility] Urine pHOrdered By: Wesley li on 06-20-2025 pH (U) 5.0 [pH] 5.0 - 8.0 [facility] Urine sediment bacteria coun t by microscopy (number/high power field)Ordered By: Wesley Jones on 06-20-2025 Bacteria LM.HPF (Urine sed) [#/Area] 1 /[HPF] None Seen [facility] Urine specific gravity measu rementOrdered By: Wesley Jones on 06-20-2025 Specific gravity (U) [Rel density] 1.015 1.002-1.030 [facility] Urine urobilinogen measureme ntOrdered By: Wesley Jones on 06-20-2025 Urobilinogen Ql (U) Normal mg/dl Normal [facility] White blood cell (WBC) count Ordered By: Wesley Jones on 06-20-2025 WBC (Bld) [#/Vol] 28.5 10*3/uL High 4.4-11.0 [facility] White blood cell countOrdere d By: Wesley Jones on 06-20-2025 White blood cell count 0 SEEN /hpf 0-5 [facility] CNPNon 06-17-2025 CNPN Telephone (INTMWS) MICHAELA BRANDT ([id number]) 1940 F Date Time Provider Department 06/17/25 ANAID SANTIAGO During your visit today, we recorded the following information about you: Nickolas Mcelroy RN 06/17/2025 5:02 PM Signed Brissa from [facility] called in to let provider know that [...] 1:35 PM Signed Noted and agree Regards, Nickolas Cesar MD, RN 06/18/2025 1:43 PM Signed Called and left a detailed voicemail notifying Brissa from [facility] of providers message. Clinic phone number was left in case she had any questions. 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 - You already have an appointment scheduled with podiatry in June. At that visit, they will assess your nails and provide appropriate treatment. - I documented the findings in your chart to ensure the telephonic rn is aware of the condition and can [...] questions or concerns, please contact our office. Anaid Santiago MD 06/03/2025 12:31 PM Signed Reason [...] a month ago, which was treated at [facility]. Michaela expresses reluctance to continue self-catheterization due to the risk of introducing infections and is considering a suprapubic catheter as an alternative. Michaela has not yet undergone an echocardiogram that was previously scheduled. She expresses a desire to reschedule the appointment. Michaela is also experiencing issues with thickened toenails, which are causing discomfort when wearing shoes. She has an appointment with a telephonic rn next month for evaluation and treatment. Michaela [...] status: Ne (more content not included)... Normal [facility] Markus 05-20-2025 ARIELN Telephone (INTMWS) REXMICHELLEMary JoMICHAELA DORMAN ([id number]) 1940 F Date Time Provider Department 05/20/25 ANAID SANTIAGO During your visit today, we recorded the following information about you: Jagruti Veliz 05/20/2025 10:53 AM Signed Patient's daughter dropped off forms that need filled out and faxed to Juan Enrique, ATTN Nory, att [phone]. Forms given to nurse. Please assist. Mike Guo MA 05/20/2025 5:03 PM Signed Forms given to PCP for review/signature. EVON Rouse Brittany L, MA 05/26/2025 11:29 AM Signed Forms completed and faxed back to # provided: [phone]. Mike Guo MA Allergies As of Date: [...] (*04/17/2025 DELMY (dementia of Alzheimer type) ([facility]) [G30.9, *04/17/2025 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] 04/17/2025 Closed fracture of left hip ([facility]) [S72.002A] 04/17/2025 Balance disorder [R26.89] 04/17/2025 Weakness of both lower extremities [R29.898] 04/17/2025 Encounter Status:Closed by MIKE GUO on 05/26/25 Normal [facility] Urine Cultureon 05-19-2025 URC Normal [facility] Comment on above: Performed By: #### M 100.2200 ####[facility] [address] [place], [address] Absolute lymphocyte countOrd ered By: Domingo Darby on 05-17-2025 Lymphocytes Auto (Unsp spec) [#/Vol] 1.24 10*3/uL 0.83-4.51 [facility] Absolute neutrophil countOrd ered By: Domingo Darby on 05-17-2025 Neutrophils (Bld) [#/Vol] 6.9 10*3/uL 2.0-7.7 [facility] Anion gap in Serum or Plasma Ordered By: Domingo Darby on 05-17-2025 Anion gap [Moles/Vol] 12 mmol/L 5-15 [facility] Automated lymphocyte count a s percentage of total leukocytesOrdered By: Domingo Darby on 05-17-2025 Lymphocytes/100 WBC Auto (Unsp spec) 14.1 % Low 19- [facility] BUN/creatinine ratioOrdered By: Domingo Darby on 05-17-2025 Urea nitrogen/Creatinine [Mass ratio] 15.6 mg/mg - [facility] Basic Metabolic Profile (BMP )on 05-17-2025 BUN/CRE 15.6 RATIO Normal - [facility] Comment on above: Performed By: #### L 100.0100, L500.2500 ####[facility] [address] [place], [address] Calcium [Mass/Vol] 9.0 mg/dL Normal 7.6-11.0 [facility] Comment on above: Performed By: #### L 100.0100, L500.2500 ####[facility] [address] [place], [address] Chloride [Moles/Vol] 104 mmol/L Normal 98-108 [facility] Comment on above: Performed By: #### L 100.0100, L500.2500 ####[facility] [address] [place], [address] CO2 [Moles/Vol] 26.5 mmol/L Normal 21.0-32.0 [facility] Comment on above: Performed By: #### L 100.0100, L500.2500 ####[facility] [address] [place], [address] Creatinine [Mass/Vol] 0.96 mg/dL Normal 0.70-1.20 [facility] Comment on above: Performed By: #### L 100.0100, L500.2500 ####[facility] [address] [place], [address] GAP 12 Normal 5-15 [facility] Comment on above: Performed By: #### L 100.0100, L500.2500 ####[facility] [address] [place], [address] GFR/1.73 sq M.predicted among non-blacks MDRD (S/P/Bld) [Vol rate/Area] 58 mL/min/{1.73_m2} Low >60 [facility] Comment on above: Result Comment: mL/m in/1.73m2 CKD-EPI Creatinine Equation (2020) Performed By: #### L 100.0100, L500.2500 ####[facility] [address] [place], [address] Glucose [Mass/Vol] 97 mg/dL Normal 70-99 [facility] Comment on above: Performed By: #### L 100.0100, L500.2500 ####[facility] [address] [place], [address] Potassium [Moles/Vol] 3.9 mmol/L Normal 3.3-5.1 [facility] Comment on above: Result Comment: Hemo lysis present, Results??could be affected.?? Performed By: #### L 100.0100, L500.2500 ####[facility] [address] [place], [address] Sodium [Moles/Vol] 142 mmol/L Normal 133-145 [facility] Comment on above: Performed By: #### L 100.0100, L500.2500 ####[facility] [address] [place], [address] Urea nitrogen [Mass/Vol] 15 mg/dL Normal 4-19 [facility] Comment on above: Performed By: #### L 100.0100, L500.2500 ####[facility] [address] [place], [address] Basophil percentageOrdered B y: Domingo Darby on 05-17-2025 Basophils/100 WBC (Bld) 0.6 % 0-1 [facility] Bilirubin Test strip Ql (U)O rdered By: Domingo Darby on 05-17-2025 Bilirubin Ql (U) Negative Negative [facility] CBC W/Diff, Automatedon 04-20 Absolute Lymph 1.24 X10 3/uL Normal 0.83-4.51 [facility] Comment on above: Performed By: #### L 100.0100, L500.2500 ####[facility] [address] [place], [address] Absolute Neut 6.9 X10 3/uL Normal 2.0-7.7 [facility] Comment on above: Performed By: #### L 100.0100, L500.2500 ####[facility] [address] [place], [address] Basophils/100 WBC (Bld) 0.6 % Normal 0-1 [facility] Comment on above: Performed By: #### L 100.0100, L500.2500 ####[facility] [address] [place], [address] Eosinophils/100 WBC (Bld) 0.9 % Normal 0-5 [facility] Comment on above: Performed By: #### L 100.0100, L500.2500 ####[facility] [address] [place], [address] Erythrocyte distribution width (RBC) [Ratio] 13.1 % Normal 11.6-14.6 [facility] Comment on above: Performed By: #### L 100.0100, L500.2500 ####[facility] [address] [place], [address] Hematocrit (Bld) [Volume fraction] 36.5 % Low 37-47 [facility] Comment on above: Performed By: #### L 100.0100, L500.2500 ####[facility] [address] [place], [address] Hemoglobin (Bld) [Mass/Vol] 12.5 g/dL Normal 12.0-15.0 [facility] Comment on above: Performed By: #### L 100.0100, L500.2500 ####[facility] [address] [place], [address] IG% 0.500 Normal 0.0-0.9 [facility] Comment on above: Result Comment: IG% - Immature Granulocytes (promyelocytes, myelocytes andmetamyelocytes) > 1% indicates that a LEFT SHIFT is Present. Performed By: #### L 100.0100, L500.2500 ####[facility] [address] [place], [address] Lymphocytes/100 WBC (Bld) 14.1 % Low 19-41 [facility] Comment on above: Performed By: #### L 100.0100, L500.2500 ####[facility] [address] [place], [address] MCH (RBC) [Entitic mass] 30.0 pg Normal 27.0-32.0 [facility] Comment on above: Performed By: #### L 100.0100, L500.2500 ####[facility] [address] [place], [address] MCHC (RBC) [Mass/Vol] 34.2 g/dL Normal 32-36 [facility] Comment on above: Performed By: #### L 100.0100, L500.2500 ####[facility] [address] [place], [address] MCV (RBC) [Entitic vol] 87.5 fL Normal 81-99 [facility] Comment on above: Performed By: #### L 100.0100, L500.2500 ####[facility] [address] [place], [address] Monocytes/100 WBC (Bld) 5.1 % Normal 0-10 [facility] Comment on above: Performed By: #### L 100.0100, L500.2500 ####[facility] [address] [place], [address] Neutrophils/100 WBC (Bld) 78.8 % High 47-70 [facility] Comment on above: Performed By: #### L 100.0100, L500.2500 ####[facility] [address] [place], [address] Nucleated RBC (Bld) [#/Vol] 0 10*3/uL Normal 0-5 [facility] Comment on above: Performed By: #### L 100.0100, L500.2500 ####[facility] [address] [place], [address] Platelet mean volume (Bld) [Entitic vol] 10.4 fL Normal 6.2-12.0 [facility] Comment on above: Performed By: #### L 100.0100, L500.2500 ####[facility] [address] [place], [address] Platelets (Bld) [#/Vol] 181 10*3/uL Normal 150-450 [facility] Comment on above: Performed By: #### L 100.0100, L500.2500 ####[facility] [address] [place], [address] RBC (Bld) [#/Vol] 4.17 10*6/uL Low 4.2-5.4 [facility] Comment on above: Performed By: #### L 100.0100, L500.2500 ####[facility] [address] [place], [address] RDW SD 41.9 fl Normal 35.1-43.9 [facility] Comment on above: Performed By: #### L 100.0100, L500.2500 ####[facility] [address] [place], [address] WBC (Bld) [#/Vol] 8.8 10*3/uL Normal 4.4-11.0 [facility] Comment on above: Performed By: #### L 100.0100, L500.2500 ####[facility] [address] [place], [address] Carbon dioxide, total [Moles /volume] in Central venous bloodOrdered By: Domingo Darby on 05-17-2025 CO2 [Moles/Vol] 26.5 mmol/L 21.0-32.0 [facility] Chloride assayOrdered By: Kodak Darby on 05-17-2025 Chloride [Moles/Vol] 104 mmol/L 98-108 [facility] Emergency Department Summary on 05-17-2025 Emergency Department Summary Normal [facility] Eosinophil percentageOrdered By: Domingo Darby on 05-17-2025 Eosinophils/100 WBC (Bld) 0.9 % 0-5 [facility] Erythrocyte distribution wid th ratioOrdered By: Domingo Darby on 05-17-2025 Erythrocyte distribution width (RBC) [Ratio] 13.1 % 11.6-14.6 [facility] Erythrocyte distribution wid th standard deviationOrdered By: Domingo Darby on 05-17-2025 Erythrocyte distribution width (RBC) [Ratio] 41.9 fl 35.1-43.9 [facility] Glomerular filtration rate ( GFR) estimation/1.73 sq m using serum, plasma, or whole bOrdered By: Domingo Darby on 05-17-2025 GFR/1.73 sq M.predicted among non-blacks MDRD (S/P/Bld) [Vol rate/Area] 58 mL/min/{1.73_m2} Low >60 [facility] Comment on above: mL/min/1.73m2 CKD-EP I Creatinine Equation (2020) Hematocrit Auto (Bld) [Volum e fraction]Ordered By: Domingo Darby on 05-17-2025 Hematocrit (Bld) [Volume fraction] 36.5 % Low 37-47 [facility] Hemoglobin measurementOrdere d By: Domingo Darby on 05-17-2025 Hemoglobin (Bld) [Mass/Vol] 12.5 g/dL 12.0-15.0 [facility] Immature granulocytes/100 WB C Auto (Bld)Ordered By: Domingo Darby on 05-17-2025 Immature granulocytes/100 WBC (Bld) 0.500 % 0.0-0.9 [facility] Comment on above: IG% - Immature Granu locytes (promyelocytes, myelocytes and metamyelocytes) > 1% indicates that a LEFT SHIFT is Present. Ketones Test strip Ql (U)Ord ered By: Domingo Darby on 05-17-2025 Ketones Ql (U) Negative Negative [facility] MCV (mean corpuscular volume ) determinationOrdered By: Domingo Darby on 05-17-2025 MCV (RBC) [Entitic vol] 87.5 fL 81-99 [facility] Mean corpuscular hemoglobin (MCH) determinationOrdered By: Domingo Darby on 05-17-2025 MCH (RBC) [Entitic mass] 30.0 pg 27.0-32.0 [facility] Mean corpuscular hemoglobin concentration (MCHC) determinationOrdered By: Domingo Darby on 05-17-2025 MCHC (RBC) [Mass/Vol] 34.2 g/dL 32-36 [facility] Mean platelet volume determi nationOrdered By: Domingo Darby on 05-17-2025 Platelet mean volume (Bld) [Entitic vol] 10.4 fL 6.2-12.0 [facility] Microscopic analysis of urin e for red blood cells (RBC)Ordered By: Domingo Daryb on 05-17-2025 Microscopic analysis of urine for red blood cells (RBC) 0-5 SEEN /hpf 0-5 [facility] Monocyte percentageOrdered B y: Domingo Darby on 05-17-2025 Monocytes/100 WBC (Bld) 5.1 % 0-10 [facility] Mucus LM Ql (Urine sed)Order ed By: Domingo Darby on 05-17-2025 Mucus Ql (Urine sed) 0 SEEN /hpf [facility] Neutrophil percentageOrdered By: Domingo Darby on 05-17-2025 Neutrophils/100 WBC (Bld) 78.8 % High 47-70 [facility] Nitrite Test strip Ql (U)Ord ered By: Domingo Darby on 05-17-2025 Nitrite Ql (U) Positive High Negative [facility] Nucleated red blood cell per centageOrdered By: Domingo Darby on 05-17-2025 Nucleated RBC/100 WBC (Bld) [Ratio] 0 % 0-5 [facility] Platelet countOrdered By: Kodak Darby on 05-17-2025 Platelets (Bld) [#/Vol] 181 10*3/uL 150-450 [facility] Potassium measurement (mass/ volume)Ordered By: Domnigo Darby on 05-17-2025 Potassium (Unsp spec) [Mass/Vol] 3.9 mmol/L 3.3-5.1 [facility] Comment on above: Hemolysis present, R esults could be affected. Protein Test strip Ql (U)Ord ered By: Domingo Darby on 05-17-2025 Protein Ql (U) 30 mg/dl High Negative [facility] RBC Auto (Bld) [#/Vol]Ordere d By: Domingo Darby on 05-17-2025 RBC (Bld) [#/Vol] 4.17 10*6/uL Low 4.2-5.4 [facility] Serum creatinine measurement (mass/volume)Ordered By: Domingo Darby on 05-17-2025 Creatinine [Mass/Vol] 0.96 mg/dL 0.70-1.20 [facility] Serum glucose measurement (m ass/volume)Ordered By: Domingo Darby on 05-17-2025 Glucose [Mass/Vol] 97 mg/dL 70-99 [facility] Serum or plasma calcium thomas urement (mass/volume)Ordered By: Domingo Darby on 05-17-2025 Calcium [Mass/Vol] 9.0 mg/dL 7.6-11.0 [facility] Serum or plasma urea nitroge n measurement (mass/volume)Ordered By: Domingo Darby on 05-17-2025 Urea nitrogen [Mass/Vol] 15 mg/dL 4-19 [facility] Sodium levelOrdered By: Domingo Darby on 05-17-2025 Sodium [Moles/Vol] 142 mmol/L 133-145 [facility] Squamous epithelial cells de tection in urine sediment by light microscopyOrdered By: Domingo Darby on 05-17-2025 Epithelial cells.squamous LM Ql (Urine sed) 0-5 SEEN /hpf 5-10 [facility] Urinalysis, Completeon 05-17 EPI,SQUAMOUS 0-5 SEEN Normal 5-10 [facility] Comment on above: Order Comment: CLEAN CATCH Performed By: #### L 400.0001 ####[facility] [address] [place], [place], [id number] RBC 0-5 SEEN Normal 0-5 [facility] Comment on above: Order Comment: CLEAN CATCH Performed By: #### L 400.0001 ####[facility] [address] [place], [place], [id number] WBC 50-100 SEEN Normal 0-5 [facility] Comment on above: Order Comment: CLEAN CATCH Performed By: #### L 400.0001 ####[facility] [address] [place], [address] BACTERIA 0 SEEN Normal None Seen [facility] Comment on above: Order Comment: CLEAN CATCH Performed By: #### L 400.0001 ####[facility] [address] [place], [place], [id number] Mucus Ql (Urine sed) 0 SEEN Normal [facility] Comment on above: Order Comment: CLEAN CATCH Performed By: #### L 400.0001 ####[facility] [address] [place], [place], [phone] Urine clarityOrdered By: Rey Darby on 05-17-2025 Clarity (U) Clear Clear [facility] Urine color determinationOrd ered By: Domingo Darby on 05-17-2025 Color (U) Yellow Yellow [facility] Urine cultureOrdered By: Rey Darby on 05-17-2025 Bacteria identified Cx Nom (U) Escherichia coli Abnormal [facility] Urine glucose detectionOrder ed By: Domingo Darby on 05-17-2025 Glucose Ql (U) Normal mg/dl Normal [facility] Urine leukocyte esterase det ection by dipstickOrdered By: Domingo Darby on 05-17-2025 Leukocyte esterase Test strip Ql (U) 100 /ul High Negative [facility] Urine pHOrdered By: Domingo Arzola ghirene on 05-17-2025 pH (U) 6.0 [pH] 5.0 - 8.0 [facility] Urine sediment bacteria coun t by microscopy (number/high power field)Ordered By: Domingo Darby on 05-17-2025 Bacteria LM.HPF (Urine sed) [#/Area] 0 /[HPF] None Seen [facility] Urine specific gravity measu rementOrdered By: Domingo Darby on 05-17-2025 Specific gravity (U) [Rel density] 1.020 1.002-1.030 [facility] Urine urobilinogen measureme ntOrdered By: Domingo Darby on 05-17-2025 Urobilinogen Ql (U) Normal mg/dl Normal [facility] White blood cell (WBC) count Ordered By: Domingo Darby on 05-17-2025 WBC (Bld) [#/Vol] 8.8 10*3/uL 4.4-11.0 [facility] White blood cell countOrdere d By: Domingo Darby on 05-17-2025 White blood cell count 50-100 SEEN /hpf 0-5 [facility] CNPNon 05-07-2025 CNPN Telephone (INTMWS) ALIZAMICHAELA ([id number]) 1940 F Date Time Provider Department 05/07/25 ANAID SANTIAGO INTMWS During your visit today, we recorded the following information about you: Michaelle Tai, RN 05/07/2025 11:16 AM Signed Ivis Geno [facility] reports pt has fine crackles in the bases of her lungs again. Reports patient denies Shortness of Breath, and the swelling has decreased. No fever. Otherwise, besides pt's anxiety she feels great. Asking if pcp wants to order a CXR? If pcp wants to order a CXR please fax order to Jose M Zheng at fax # [phone] Please advise and phone Ivis with reply: [phone] Anaid Santiago MD 05/11/2025 5:08 PM Signed Do not want chest xr just yet Is she taking her lasix as ordered, 2 times a week? Anaid Patel MD, M Robin, RN 05/12/2025 1:25 [...] LPN - Fully Assessed Reason for Visit: Geno requesting order [Other] Prescriptions as of 05/12/2025 [...] (*04/17/2025 DELMY (dementia of Alzheimer type) ([facility]) [G30.9, *04/17/2025 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] 04/17/2025 Closed fracture of left hip ([facility]) [S72.002A] 04/17/2025 Balance disorder [R26.89] 04/17/2025 Weakness of both lower extremities [R29.898] 04/17/2025 Encounter Status:Closed by Michaelle TAI on 05/12/25 [facility] CNOVon 05-06-2025 CNOV Office Visit (MANUEL ) MICHAELA BRANDT ([id number]) 1940 F Date Time Provider Department 05/06/25 11:30 AM ANAID SANTIAGO During your visit today, we recorded the following information about you: Pulse Respiration Blood pressure Weight 62/minute 12/minute 144/64 55.8 kg Anaid Santiago MD 05/06/2025 12:49 PM Signed Reason for Visit Follow up HPI Michaela Brandt is a 84-year-old female, with a history of urinary retention requiring self-catheterization, presenting for follow-up on lower extremity edema and urinary catheter management. She is accompanied by her daughter, who is providing additional history. Michaela is currently receiving home care services, including residential, physical therapy, and occupational therapy. She has aides assisting her from 1307-3699 and 2862-1048 daily. Due to financial constraints, the family [...] mg tablet Catheter (SELF-CATHETER, FEMALE) 14 Fr [facility] Maintenance DTaP,Tdap,Td Vaccine(1 - Tdap) Bone [...] (R33.9) Self-catheterize (more content not included)... [facility] MICHAELA BRANDT ([id number]) 1940 F Date Time Provider Department 05/06/25 ANAID SANTIAGO INTMWS During your visit today, we recorded the following information about you: Kecia Red, RN 05/06/2025 5:03 PM Signed Nickolas PT with [facility] calls to let [...] mouth two times a day. Authorizing Provider: ANAID SANTIAGO MA Allergies As of Date: 05/06/2025 [...] (*04/17/2025 DELMY (dementia of Alzheimer type) ([facility]) [G30.9, *04/17/2025 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] 04/17/2025 Closed fracture of left hip ([facility]) [S72.002A] 04/17/2025 Balance disorder [R26.89] 04/17/2025 Weakness of both lower extremities [R29.898] 04/17/2025 Prescriptions ordered this encounter Disp Refills Start End BUSPIRONE 5 MG TABLET 60 t* 3 05/06/2025 Route: PO Sig: Take 1 tablet by mouth two times a day. Encounter Status:Closed by MIKE GUO on 05/07/25 Normal [facility] Comprehensive metabolic 2000 panelon 05-06-2025 Albumin [Mass/Vol] 3.8 g/dL Low 3.9-4.9 [facility] Comment on above: Order Comment: Speci men Type: BLOOD SPECIMENOrdering Facility: [facility] Address: [address] [place] [address] Performed By: #### 2 4323-8, 53033-4 ####[facility] LABCLIA [id number] [place] [address] [place] ALP [Catalytic activity/Vol] 100 U/L Normal 34-123 [facility] Comment on above: Order Comment: Speci men Type: BLOOD SPECIMENOrdering Facility: [facility] [place] Address: [address] [place] [address] Performed By: #### 2 4323-8, 29329-6 ####[facility] LABCLIA [id number] [facility] [address] [place] [address] [place] ALT [Catalytic activity/Vol] 9 U/L Normal 7-38 [facility] Comment on above: Order Comment: Speci men Type: BLOOD SPECIMENOrdering Facility: [facility] [place] Address: [address] [place] [address] Performed By: #### 2 4323-8, 62097-2 ####[facility] LABCLIA [id number] [address], [facility] [place] Anion gap [Moles/Vol] 11 mmol/L Normal 8-15 [facility] Comment on above: Order Comment: Speci men Type: BLOOD SPECIMENOrdering Facility: [facility] [place] Address: [address] [place] [address] Performed By: #### 2 4323-8, 67507-7 ####[facility] LABCLIA [id number] [address], [place] [address] [place] AST [Catalytic activity/Vol] 17 U/L Normal 13-35 [facility] Comment on above: Order Comment: Speci men Type: BLOOD SPECIMENOrdering Facility: [facility] [place] Address: [address] [place] [address] Performed By: #### 2 4323-8, 63053-9 ####[facility] LABCLIA [id number] [place] [address] [place] Bilirubin [Mass/Vol] 0.7 mg/dL Normal 0.2-1.3 [facility] Comment on above: Order Comment: Speci men Type: BLOOD SPECIMENOrdering Facility: [facility] [place] Address: [address] [place] [address] Performed By: #### 2 4323-8, 37262-2 ####[facility] LABCLIA [id number] [place] [id number] [place] Calcium [Mass/Vol] 9.2 mg/dL Normal 8.5-10.2 [facility] Comment on above: Order Comment: Speci men Type: BLOOD SPECIMENOrdering Facility: [facility] [place] Address: [address] [place], [place] [address] Performed By: #### 2 4323-8, 14553-1 ####[facility] LABCLIA [id number] [facility] [address] [address] [place] Chloride [Moles/Vol] 104 mmol/L Normal 98-107 [facility] Comment on above: Order Comment: Speci men Type: BLOOD SPECIMENOrdering Facility: [facility] [place] Address: [address] [place], [place] [address] Performed By: #### 2 4323-8, 93343-8 ####[facility] LABCLIA [id number] [place] [id number] [place] CO2 [Moles/Vol] 24 mmol/L Normal 22-30 [facility] Comment on above: Order Comment: Speci men Type: BLOOD SPECIMENOrdering Facility: [facility] [place] Address: [address] [place], [place] [address] Performed By: #### 2 4323-8, 41563-2 ####[facility] LABCLIA [id number] [facility] [place] [address] [place] Creatinine [Mass/Vol] 0.70 mg/dL Normal 0.58-0.96 [facility] Comment on above: Order Comment: Speci men Type: BLOOD SPECIMENOrdering Facility: [facility] [place] Address: [address] [place], [place] [address] Performed By: #### 2 4323-8, 03914-3 ####[facility] LABCLIA [id number] [facility] [place] [address] [place] Creatinine and Glomerular filtration rate.predicted panel (S/P/Bld) 85 mL/min/1.73m??? Normal >=60 [facility] Comment on above: Order Comment: Speci men Type: BLOOD SPECIMENOrdering Facility: [facility] [place] Address: [address] [place] [id number] Result Comment: Linda mated Glomerular Filtration Rate [...] actual GFR. Performed By: #### 2 4323-8, 39380-6 ####[facility] LABIA [id number] [place] [id number] [place] Glucose [Mass/Vol] 93 mg/dL Normal 74-99 [facility] Comment on above: Order Comment: Speci men Type: BLOOD SPECIMENOrdering Facility: [facility] [place] Address: [address] [place] [address] Result Comment: The [place] Diabetes Association (ADA) provides guidance for cutoff [...] Standards of Medical Care in Diabetes 2016, [place] Diabetes Association. Diabetes Care. 2016.39(Suppl 1). Performed By: #### 2 4323-8, 03664-7 ####[facility] LABIA [id number] [address] [address] [place] Potassium [Moles/Vol] 4.0 mmol/L Normal 3.7-5.1 [facility] Comment on above: Order Comment: Speci men Type: BLOOD SPECIMENOrdering Facility: [facility] [place] Address: [address] [place] [id number] Performed By: #### 2 4323-8, 98309-8 ####[facility] LABCLIA [id number] [address] [place] [address] [place] Protein [Mass/Vol] 6.6 g/dL Normal 6.3-8.0 [facility] Comment on above: Order Comment: Speci men Type: BLOOD SPECIMENOrdering Facility: [facility] [place] Address: [address] [place] [address] Performed By: #### 2 4323-8, 96044-9 ####[facility] LABCLIA [id number] [address] [address] [place] Sodium [Moles/Vol] 139 mmol/L Normal 136-144 [facility] Comment on above: Order Comment: Speci men Type: BLOOD SPECIMENOrdering Facility: [facility] [place] Address: [address] [place] [address] Performed By: #### 2 4323-8, 06017-0 ####[facility] LABIA [id number] [address] [address] [place] Urea nitrogen [Mass/Vol] 14 mg/dL Normal 7-21 [facility] Comment on above: Order Comment: Speci men Type: BLOOD SPECIMENOrdering Facility: [facility] [place] Address: [address] [place] [address] Performed By: #### 2 4323-8, 27980-0 ####[facility] LABIA [id number] [address] [address] [place] HbA1c (Bld)on 05-06-2025 Average glucose Estimated from glycated hemoglobin (Bld) [Mass/Vol] 74 mg/dL Normal [facility] Comment on above: Order Comment: Speci men Type: BLOOD SPECIMENOrdering Facility: [facility] [place] Address: [address] [place] [address] Result Comment: eAG: (Estimated average glucose) is a calculated value from HgbA1c and is senior outside sales representative of the average blood glucose level in the last 2-3 month period. Performed By: #### 5 5454-3 ####[facility] LABCLIA [id number] [place] [address] [place] HbA1c (Bld) [Mass fraction] 4.2 % Low 4.3-5.6 [facility] Comment on above: Order Comment: Marcel hopper Type: BLOOD SPECIMENOrdering Facility: [facility] [place] Address: [address] [place] [address] Result Comment: Amer ican Diabetes Association guidelines indicate that patients with HgbA1c in the range 5.7-6.4% are at increased risk for development of diabetes, and intervention by lifestyle modification may be beneficial. HgbA1c greater or equal to 6.5% is considered diagnostic of diabetes. Performed By: #### 5 5454-3 ####[facility] LABIA [id number] [address] [place] NT-proBNP [facility] 05-06 Natriuretic peptide.B prohormone N-Terminal [Mass/Vol] 113 pg/mL Normal <450 [facility] Comment on above: Order Comment: Marcel hopper Type: BLOOD SPECIMENOrdering Facility: [facility] [place] Address: [address] [place] [address] Performed By: #### 2 4323-8, 18012-0 ####[facility] [id number] [address] [place] CNPNon 05-04-2025 [facility] MICHAELA BRANDT ([id number]) 1940 F Date Time Provider Department 05/04/25 [facility] During your visit today, we recorded the following information about you: Nisha Clayton LPN 05/04/2025 8:50 AM Signed Brittni with [facility] calls in regards to TE from 04/24: Solange Craig RN MG 04/24/25 11:13 AM Note Brissa from [facility] is calling due to she saw [...] x-ray, BNP, CMP, and A1C for patient? Anaid Patel MD, Lisa, MA 05/04/2025 4:11 PM Signed Detailed message on secure voicemail. Colin Power MA May 04, 2025 4:11 PM [...] (*04/17/2025 DELMY (dementia of Alzheimer type) ([facility]) [G30.9, *04/17/2025 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] 04/17/2025 Closed fracture of left hip ([facility]) [S72.002A] 04/17/2025 Balance disorder [R26.89] 04/17/2025 Weakness of both lower extremities [R29.898] 04/17/2025 Encounter Status:Closed by COLIN POWER on 05/04/25 [facility] Markus 04-27-20[facility] MICHAELA BRANDT ([id number]) 1940 F Date Time Provider Department 04/27/25 FREDDY BALTAZAR During your visit today, we recorded [...] of orders. Please fax to Savanah at [facility] [phone]. JAIRON notes faxed through [employer]. EVON Miller Courtney, RN 04/27/2025 4:19 PM Signed JAIRON 12/23/24 Devin Crespo LPN 05/04/2025 9:05 AM Signed Freddy Baltazar PA-C You3 days ago Yea I though Silas was doing this VADIM Stanford MT, PA-C You Freddy Baltazar PA-C5 days ago KURTIS Hayes, do you want this sent to PCP to address? Patient was seen previously by you you once and was to [facility]. RAMIREZ Valdes Chitra, MD 05/04/2025 4:02 PM Signed I dont usually do the catheters and have not done for her. I would like Urology to take care of this Anaid Patel MD, Kimberly, LPN 05/06/2025 10:03 AM Signed Freddy Baltazar PA-C You; [facility] [place]; Desi Bergman RN1 hour ago (8:44 AM) Please write orders and fax to [place] today id needed [place] [facility] VADIM Stanford MT, PA-C Orders pended. Please review and sign. RAMIREZ Valdes Kimberly, LPN 05/06/2025 10:03 AM Signed Addended by: DEVIN CRESPO on: 05/06/2025 10:03 AM Modules accepted: Freddy Monk PA-C 05/06/2025 10:48 AM Signed Addended by: FREDDY BALTAZAR on: 05/06/2025 10:48 AM Modules accepted: Anaid Estrella MD 05/06/2025 12:05 PM Signed Here is the trail of the catheter discussion. RegardsAnaid MD, Kimberly, LPN 05/06/2025 3:41 PM Signed Orders, urology office notes faxed to [facility]. RAMIREZ Valdes Kimberly, LPN 05/06/2025 3:50 PM Signed Called [facility], phone number for Savanah. Informed orders/office notes for urology in 12/23/2024 faxed. Awaiting lizarraga cathter size from provider. Devin Crespo LPN Devin Crespo RAMIREZ 05/07/2025 12:50 PM Signed Freddy Baltazar PA-C You18 hours ago (5:52 PM) I am not the provider who has pt under home health care, that provider should be ordering the lizarraga exchanges and supplies needed. Freddy Baltazar MPAS, MTNASIR Called Savanah with Home Health on secured line- no answer. Left message from Freddy. Devin Crespo LPN Allergies As of Date: 04/27/2025 (No Known Allergies) Date Reviewed: 04/17/2025 Reviewed by: Mike Guo MA - Fully Assessed Reason for Visit: Orders [681] Cmt: Self catheter Primary Visit Diagnosis:Urine retention [R33.9] Order(s):CATHETER INSERT-LIZARRAGA [[id number]] Order #: [id number] STANDING BEDSIDE DRAINAGE BAG [[id number]] Order #: [id number] STANDING sodium chloride 0.9 % IRRIGATIONIrrigate 60 mL as instructed once daily as needed.Disp: 1999 mLRfl: 3 BEDSIDE DRAINAGE BAG [[id number]] Order #: [id number] Prescriptions as of 05/07/2025 - sodium chloride [...] (*04/17/2025 DELMY (dementia of Alzheimer type) ([facility]) [G30.9, *04/17/2025 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] 04/17/2025 Closed fracture of left hip ([facility]) [S72.002A] 04/17/2025 Balance disorder [R26.89] 04/17/2025 Weakness of both lower extremities [R29.898] 04/17/2025 Prescriptions ordered this encounter Disp Refills Start End SODIUM CH (more content not included)... Normal [facility] CNPNon 04-24-2025 CNPN Telephone (COUMWS) MICHAELA BRANDT ([id number]) 1940 F Date Time Provider Department 04/24/25 ANAID SANTIAGO During your visit today, we recorded the following information about you: Solange Craig, RN 04/24/2025 11:13 AM Signed [facility] is calling due to she saw [...] RN 04/24/2025 3:00 PM Signed Patient's daughter Osmany Shin calling regarding patient. Expresses concern that [...] if she should take her mother to [facility] ER or a [facility] ER. She states since she is affiliated with [facility] would it be in her best interest to just go to the [facility]. I told her that is up to her, but the closest one would be [place], [facility], or [place]. She said if they went to [facility] they could always get her transfer to a [facility] facility. I told her it really depends on what they find when they do blood work when she get there. She said she would talk it over with her . Nickolas Mcelroy RN Allergies As of Date: 04/24/2025 [...] (*04/17/2025 DELMY (dementia of Alzheimer type) ([facility]) [G30.9, *04/17/2025 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] 04/17/2025 Closed fracture of left hip ([facility]) [S72.002A] 04/17/2025 Balance disorder [R26.89] 04/17/2025 Weakness of both lower extremities [R29.898] 04/17/2025 Encounter Status:Closed by SOLANGE CRAIG [facility]28/25 [facility] MICHAELA BRANDT ([id number]) 1940 F Date Time Provider Department 04/21/25 [facility] During your visit today, we recorded the following information about you: Nisha Clayton LPN 04/21/2025 1:08 PM Signed Larisa with [facility] calls to report she saw pt [...] can give her a little lasix. Regards, Deshawn Mcneil MD, LPN 04/22/2025 9:42 AM Signed Called and spoke to patients daughter Osmany, will forward message to Home health Deshawn Lombardo LPN April 22, 2025 9:42 AM [...] (*04/17/2025 DELMY (dementia of Alzheimer type) ([facility]) [G30.9, *04/17/2025 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] 04/17/2025 Closed fracture of left hip ([facility]) [S72.002A] 04/17/2025 Balance disorder [R26.89] 04/17/2025 Weakness of both lower extremities [R29.898] 04/17/2025 Encounter Status:Closed by DESHAWN LOMBARDO on 04/22/25 [facility] 04-20-2025 CNPN Telephone (INTMWS) REXMICHAELA MARTINEZ ([id number]) 1940 F Date Time Provider Department 04/20/25 ANAID SANTIAGO INTMWS During your visit today, we recorded the following information about you: Nickolas Mcerloy, ZACHARIAH 04/20/2025 3:09 PM Signed My CAO with [facility] called in POC. She states SN will be seeing Pt three times a week for 2 weeks, then twice a week for 3 weeks, then once a week for 3 weeks. She states she is going to schedule a visit tomorrow if the provider will give them order to reinsert a lizarraga catheter. She reports [facility] she [facility] lizarraga catheter in, and [...] message for My CAO with [facility] that if she has an updated medication list from when the Pt was in the [facility] if she could fax that to Dr Santiago at [phone]. ZACHARIAH Antonio Beth, [employer] 04/20/2025 3:36 PM Signed My calling back she will fax list from the SNF and will have to update med list with her admission notes to [facility] and fax that when she is able. Josy Saucedo RN 04/20/2025 4:08 PM Signed Call received from My, nurse at [facility], regarding orders for Pt (see below notation). [facility] nurse observed Pt self-cath, and she was not cleansing herself well. Pt's daughter is voicing concern about Pt's inability to do this at home. [facility] is requesting order for chronic indwelling lizarraga cathether, 16F. Last OV with urology - Freddy Baltazar PA-C: [facility] office phone: Fax number for orders: Josy Saucedo RN April 20, 2025 4:07 PM Anaid Santiago MD 04/20/2025 5:03 PM Signed Agree Does she need orders for the 16 polish indwelling lizarraga? Thanks Regards, Nickolas Cesar MD, ZACHARIAH 04/20/2025 5:14 PM Signed My CAO with [facility] called and is notified of providers message. She voices understanding and reports that yes she does need the orders for the 16 polish indwelling lizarraga. She states she can take a verbal order for that and we can leave a VM as her line is secure. She is also going to have her office fax over an updated medication list from [facility] when she is done with her note. ZACHARIAH Antonio Chitra, MD 04/20/2025 5:39 PM Signed Verbal ok for the same Regards, Nickolas Cesar MD, RN 04/20/2025 6:39 PM Signed Called and left a detailed voicemail notifying My with [facility] of providers message. Clinic phone number was left in case she had any questions. Nickolas Mcelroy RN Allergies As of Date: 04/20/2025 [...] (*04/17/2025 DELMY (dementia of Alzheimer type) ([facility]) [G30.9, *04/17/2025 S/P hip hemiarthroplasty [Z9 (more content not included)... Normal [facility] CNOVon 04-17-2025 CNOV Office Visit (INTMWS ) MICHAELA BRANDT ([id number]) 1940 F Date Time Provider Department 04/17/25 11:20 AM ANAID SANTIAGO INTMichaelleWS During your visit today, we recorded the following information about you: Pulse Respiration Blood pressure 67/minute 16/minute 124/71 Anaid Santiago MD 04/17/2025 12:47 PM Signed We [...] is a positive sign for healing. - senior living will be arranged to clean and care [...] you have experienced in the past. - senior living will assist with catheter care, including monthly [...] These were helpful during your stay at [facility]. - Mental Health: - You are [...] are awaiting an updated medication list from [facility] to confirm all current prescriptions and dosages. - Living Arrangements: - Your daughter is exploring assisted living options for you, including a facility in [facility]. This will require private pay [...] - A referral has been sent to [facility] for residential, PT, and OT. They will also assess your eligibility for additional home health aide services. - Your bob jaxon is working with Renate and other resources to explore options for [...] support your care needs. Next Steps: - senior living, PT, and OT will be arranged through [...] around the wounds), or any other concerns. Anaid Santiago MD 04/17/2025 5:30 PM Addendum Reason [...] transitional care (more content not included)... Normal [facility]-17-20[facility] MICHAELA BRANDT ([id number]) 1940 F Date Time Provider Department 04/17/25 ANAID SANTIAGO INTMWS During your visit today, we recorded the following information about you: Mike Guo MA 04/17/2025 11:44 AM Signed TC to nurse at [facility] to obtain current med list. Unable to reach. Left detailed message for nurse to [facility]. PCP office needs updated med list. EVON Rouse Amanda, RN 04/20/2025 6:40 PM Signed See TE from 04/20/25 My CAO with [facility] was going to have updated medication list faxed over to provider office. Nickolas Mcelroy RN Allergies As of Date: 04/17/2025 (No Known Allergies) Date Reviewed: 04/17/2025 Reviewed by: Mike Guo MA - Fully Assessed Reason for Visit: Request information from [facility] [Other] Prescriptions as of 04/20/2025 - citalopram [...] (*04/17/2025 DELMY (dementia of Alzheimer type) ([facility]) [G30.9, *04/17/2025 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] 04/17/2025 Closed fracture of left hip ([facility]) [S72.002A] 04/17/2025 Balance disorder [R26.89] 04/17/2025 Weakness of both lower extremities [R29.898] 04/17/2025 Encounter Status:Closed by NICKOLAS MCELROY on 04/20/25 [facility] CNPN Telephone (INTMWS) MICHAELA BRANDT ([id number]) 1940 F Date Time Provider Department 04/17/25 ANAID SANTIAGO INTWS During your visit today, we recorded the following information about you: Nickolas Mcelroy RN 04/17/2025 10:06 AM Signed Wes ESTRADA called in and reports they received a referral for SN/PT/OT. She is asking if provider will fallow. Please call back. ZACHARIAH Antonio Chitra, MD 04/17/2025 10:43 AM Signed Will follow Anaid Patel MD, Amanda, RN 04/17/2025 10:54 AM Signed Wes ESTRADA called and is notified of providers message. She voices understanding. Nickolas Mcelroy RN Allergies As of Date: 04/17/2025 (No Known Allergies) Date Reviewed: 02/19/2025 Reviewed by: Carolina Hastings LPN - Fully Assessed Reason for Visit: Follow HH [Other] Prescriptions as of 04/17/2025 - clonazePAM [...] Of Date: 04/17/2025 (None) Encounter Status:Closed by NICKOLAS MCELROY on 04/17/25 [facility] MICHAELA BRANDT ([id number]) 1940 F Date Time Provider Department 04/17/25 RENATE MONTGOMERY During your visit today, we recorded the following information about you: Renate Montgomery MSW 04/17/2025 1:00 PM Signed This Sw received SW consult and will work on reaching out to patient daughter to discuss social service needs. This Sw also notes that there is a message from today from [facility] noting orders for SN,PT,OT. It looks like Dr. Santiago agreed to [facility] seeing patient. Renate Montgomery, MED DIR 04/17/2025 1:49 PM Signed Sw tried call to patient daughter and vmail is full, unable to leave message. Sw will try call another time. Renate Montgomery, MED DIR 04/17/2025 3:19 PM Signed Thomas spoke with patient daughter in regards to Home Health questions and also current housing AL options. Osmany and Thomas discussed that [facility] looks to be an option for home healthcare. Thomas left message for [facility] referral line to call this Sw back to confirm if they will be serving patient home healthcare needs. Osmany notes that [facility] will be providing home ostomy care nurse next week when patient stays at her apt. Osmany notes that patient will then be coming to stay with her,until opening at [facility]. Osmany notes that she is working on getting bedroom ready at there home for patient to come and stay with he. There is a wait list at [facility]. Thomas will let patient daughter know what she finds out from [facility]. Osmany also mentioned a letter for her mom's current [place] apt, to see about being released from her housing there. Thomas noted that she would send message to Dr. Santiago to see what she says about letter. Anaid Santiago MD 04/17/2025 5:33 PM Signed We discussed about letter and she said she will message me when needed Regards, Anaid Santiago MD Allergies As of Date: 04/17/2025 [...] (*04/17/2025 DELMY (dementia of Alzheimer type) ([facility]) [G30.9, *04/17/2025 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] 04/17/2025 Closed fracture of left hip ([facility]) [S72.002A] 04/17/2025 Balance disorder [R26.89] 04/17/2025 Weakness of both lower extremities [R29.898] 04/17/2025 Encounter Status:Closed by ANAID SANTIAGO on 04/17/25 Normal [facility] Basic Metabolic Profile (BMP )on 04-09-2025 BUN Normal 4-19 [facility] Comment on above: Result Comment: Canc elled via OM: Order cancelled - Patient discharged Performed By: #### L 100.0100, L500.2500 ####[facility] [address] [place], [address] BUN/CRE Normal 10-20 [facility] Comment on above: Result Comment: Canc elled via OM: Order cancelled - Patient discharged Performed By: #### L 100.0100, L500.2500 ####[facility] [address] [place], [address] Calcium Normal 7.6-11.0 [facility] Comment on above: Result Comment: Canc elled via OM: Order cancelled - Patient discharged Performed By: #### L 100.0100, L500.2500 ####[facility] [address] [place], [address] CL Normal 98-108 [facility] Comment on above: Result Comment: Canc elled via OM: Order cancelled - Patient discharged Performed By: #### L 100.0100, L500.2500 ####[facility] [address] [place], [address] CO2 Normal 21.0-32.0 [facility] Comment on above: Result Comment: Canc elled via OM: Order cancelled - Patient discharged Performed By: #### L 100.0100, L500.2500 ####[facility] [address] [place], [address] CREAT,SERUM Normal 0.70-1.20 [facility] Comment on above: Result Comment: Canc elled via OM: Order cancelled - Patient discharged Performed By: #### L 100.0100, L500.2500 ####[facility] [address] [place], [address] eGFR Normal >60 [facility] Comment on above: Result Comment: Canc elled via OM: Order cancelled - Patient discharged Performed By: #### L 100.0100, L500.2500 ####[facility] [address] [place], [address] GAP Normal 5-15 [facility] Comment on above: Result Comment: Canc elled via OM: Order cancelled - Patient discharged Performed By: #### L 100.0100, L500.2500 ####[facility] [address] [place], [address] GLU Normal 70-99 [facility] Comment on above: Result Comment: Canc elled via OM: Order cancelled - Patient discharged Performed By: #### L 100.0100, L500.2500 ####[facility] [address] [place], [address] Potassium Normal 3.3-5.1 [facility] Comment on above: Result Comment: Canc elled via OM: Order cancelled - Patient discharged Performed By: #### L 100.0100, L500.2500 ####[facility] [address] [place], [address] Basic Metabolic Profile (BMP) Normal 133-145 [facility] Comment on above: Result Comment: Canc elled via OM: Order cancelled - Patient discharged Performed By: #### L 100.0100, L500.2500 ####[facility] [address] [place], [address] CBC W/Diff, Automatedon 05-2 Absolute Neut Normal 2.0-7.7 [facility] Comment on above: Result Comment: Canc elled via OM: Order cancelled - Patient discharged Performed By: #### L 100.0100, L500.2500 ####[facility] [address] [place], [address] HCT Normal 37-47 [facility] Comment on above: Result Comment: Canc elled via OM: Order cancelled - Patient discharged Performed By: #### L 100.0100, L500.2500 ####[facility] [address] [place], [address] HGB Normal 12.0-15.0 [facility] Comment on above: Result Comment: Canc elled via OM: Order cancelled - Patient discharged Performed By: #### L 100.0100, L500.2500 ####[facility] [address] [place], [address] MCH Normal 27.0-32.0 [facility] Comment on above: Result Comment: Canc elled via OM: Order cancelled - Patient discharged Performed By: #### L 100.0100, L500.2500 ####[facility] [address] [place], [address] MCHC Normal 32-36 [facility] Comment on above: Result Comment: Canc elled via OM: Order cancelled - Patient discharged Performed By: #### L 100.0100, L500.2500 ####[facility] [address] [place], [address] MCV Normal 81-99 [facility] Comment on above: Result Comment: Canc elled via OM: Order cancelled - Patient discharged Performed By: #### L 100.0100, L500.2500 ####[facility] [address] [place], [address] NEUT% Normal 47-70 [facility] Comment on above: Result Comment: Canc elled via OM: Order cancelled - Patient discharged Performed By: #### L 100.0100, L500.2500 ####[facility] [address] [place], [address] PLT Normal 150-450 [facility] Comment on above: Result Comment: Canc elled via OM: Order cancelled - Patient discharged Performed By: #### L 100.0100, L500.2500 ####[facility] [address] [place], [address] RBC Normal 4.2-5.4 [facility] Comment on above: Result Comment: Canc elled via OM: Order cancelled - Patient discharged Performed By: #### L 100.0100, L500.2500 ####[facility] [address] [place], [address] RDW CV Normal 11.6-14.6 [facility] Comment on above: Result Comment: Canc elled via OM: Order cancelled - Patient discharged Performed By: #### L 100.0100, L500.2500 ####[facility] [address] [place], [address] RDW SD Normal 35.1-43.9 [facility] Comment on above: Result Comment: Canc elled via OM: Order cancelled - Patient discharged Performed By: #### L 100.0100, L500.2500 ####[facility] [address] [place], [address] WBC Normal 4.4-11.0 [facility] Comment on above: Result Comment: Canc elled via OM: Order cancelled - Patient discharged Performed By: #### L 100.0100, L500.2500 ####[facility] [address] [place], [address] Absolute lymphocyte countOrd ered By: Efewongbe Shanekae on 04-06-2025 Lymphocytes Auto (Unsp spec) [#/Vol] 1.67 10*3/uL 0.83-4.51 [facility] Absolute neutrophil countOrd ered By: Efmacarioongbe Shanekae on 04-06-2025 Neutrophils (Bld) [#/Vol] 6.8 10*3/uL 2.0-7.7 [facility] Anion gap in Serum or Plasma Ordered By: Onibe Naseem on 04-06-2025 Anion gap [Moles/Vol] 10 mmol/L 5-15 [facility] Automated lymphocyte count a s percentage of total leukocytesOrdered By: Sharleneongbe Naseem on 04-06-2025 Lymphocytes/100 WBC Auto (Unsp spec) 17.8 % Low 19-41 [facility] BUN/creatinine ratioOrdered By: macariobergheimmaxim Munroee on 04-06-2025 Urea nitrogen/Creatinine [Mass ratio] 18.7 mg/mg 10-20 [facility] Basophil percentageOrdered B y: Efmacarioongbe Shanekae on 04-06-2025 Basophils/100 WBC (Bld) 0.4 % 0-1 [facility] Carbon dioxide, total [Moles /volume] in Central venous bloodOrdered By: Sharleneongbe Shanekae on 04-06-2025 CO2 [Moles/Vol] 25.7 mmol/L 21.0-32.0 [facility] Chloride assayOrdered By: Ef macarioongbe Shanekae on 04-06-2025 Chloride [Moles/Vol] 106 mmol/L 98-108 [facility] Eosinophil percentageOrdered By: Efewongbe Oleghe on 04-06-2025 Eosinophils/100 WBC (Bld) 1.2 % 0-5 [facility] Erythrocyte distribution wid th ratioOrdered By: Adele Gusman on 04-06-2025 Erythrocyte distribution width (RBC) [Ratio] 13.7 % 11.6-14.6 [facility] Erythrocyte distribution wid th standard deviationOrdered By: Adele Gusman on 04-06-2025 Erythrocyte distribution width (RBC) [Ratio] 46.9 fl High 35.1-43.9 [facility] Glomerular filtration rate ( GFR) estimation/1.73 sq m using serum, plasma, or whole bOrdered By: macariobergheimmaxim Gusman on 04-06-2025 GFR/1.73 sq M.predicted among non-blacks MDRD (S/P/Bld) [Vol rate/Area] 74 mL/min/{1.73_m2} >60 [facility] Comment on above: mL/min/1.73m2 CKD-EP I Creatinine Equation (2020) Hematocrit Auto (Bld) [Volum e fraction]Ordered By: Adele Gusman on 04-06-2025 Hematocrit (Bld) [Volume fraction] 33.6 % Low 37-47 [facility] Hemoglobin measurementOrdere d By: Adele Gusman on 04-06-2025 Hemoglobin (Bld) [Mass/Vol] 11.4 g/dL Low 12.0-15.0 [facility] Immature granulocytes/100 WB C Auto (Bld)Ordered By: Adele Gusman 04-06-2025 Immature granulocytes/100 WBC (Bld) 1.000 % High 0.0-0.9 [facility] Comment on above: IG% - Immature Granu locytes (promyelocytes, myelocytes and metamyelocytes) > 1% indicates that a LEFT SHIFT is Present. MCV (mean corpuscular volume ) determinationOrdered By: Adele Gusman on 04-06-2025 MCV (RBC) [Entitic vol] 91.8 fL 81-99 [facility] Mean corpuscular hemoglobin (MCH) determinationOrdered By: Adele Gusman 04-06-2025 MCH (RBC) [Entitic mass] 31.1 pg 27.0-32.0 [facility] Mean corpuscular hemoglobin concentration (MCHC) determinationOrdered By: Adele Gusman on 04-06-2025 MCHC (RBC) [Mass/Vol] 33.9 g/dL 32-36 [facility] Mean platelet volume determi nationOrdered By: Adele Gusman on 04-06-2025 Platelet mean volume (Bld) [Entitic vol] 10.9 fL 6.2-12.0 [facility] Monocyte percentageOrdered B y: Adele Gusman on 04-06-2025 Monocytes/100 WBC (Bld) 7.3 % 0-10 [facility] Neutrophil percentageOrdered By: Adele Gusman on 04-06-2025 Neutrophils/100 WBC (Bld) 72.3 % High 47-70 [facility] Nucleated red blood cell per centageOrdered By: Sharlenebergheimmaxim Gusman on 04-06-2025 Nucleated RBC/100 WBC (Bld) [Ratio] 0 % 0-5 [facility] Platelet countOrdered By: Jennifer macarioaleah Gusman on 04-06-2025 Platelets (Bld) [#/Vol] 160 10*3/uL 150-450 [facility] Potassium measurement (mass/ volume)Ordered By: Adele Gusman on 04-06-2025 Potassium (Unsp spec) [Mass/Vol] 3.6 mmol/L 3.3-5.1 [facility] RBC Auto (Bld) [#/Vol]Ordere d By: Adele Gusman on 04-06-2025 RBC (Bld) [#/Vol] 3.66 10*6/uL Low 4.2-5.4 [facility] Serum creatinine measurement (mass/volume)Ordered By: Adele Gusman on 04-06-2025 Creatinine [Mass/Vol] 0.79 mg/dL 0.70-1.20 [facility] Serum glucose measurement (m ass/volume)Ordered By: Adele Gusman on 04-06-2025 Glucose [Mass/Vol] 90 mg/dL 70-99 [facility] Serum or plasma calcium thomas urement (mass/volume)Ordered By: Jenniferelsa Gusman on 04-06-2025 Calcium [Mass/Vol] 8.9 mg/dL 7.6-11.0 [facility] Serum or plasma urea nitroge n measurement (mass/volume)Ordered By: Jennifermacariokrystalmaxim Gusman on 04-06-2025 Urea nitrogen [Mass/Vol] 15 mg/dL 4-19 [facility] Sodium levelOrdered By: Sharlene bullard Rexwichodayron on 04-06-2025 Sodium [Moles/Vol] 142 mmol/L 133-145 [facility] White blood cell (WBC) count Ordered By: [facility] Rexwichodayron on 04-06-2025 WBC (Bld) [#/Vol] 9.4 10*3/uL 4.4-11.0 [facility] Basic Metabolic Profile (BMP )on 04-02-2025 BUN Normal 4-19 [facility] Comment on above: Result Comment: Canc elled via OM: Order cancelled - Patient discharged Performed By: #### L 100.0100, L500.2500 ####[facility] [address] [place], [address] BUN/CRE Normal 10-20 [facility] Comment on above: Result Comment: Canc elled via OM: Order cancelled - Patient discharged Performed By: #### L 100.0100, L500.2500 ####[facility] [address] [place], [address] Calcium Normal 7.6-11.0 [facility] Comment on above: Result Comment: Canc elled via OM: Order cancelled - Patient discharged Performed By: #### L 100.0100, L500.2500 ####[facility] [address] [place], [address] CL Normal 98-108 [facility] Comment on above: Result Comment: Canc elled via OM: Order cancelled - Patient discharged Performed By: #### L 100.0100, L500.2500 ####[facility] [address] [place], [address] CO2 Normal 21.0-32.0 [facility] Comment on above: Result Comment: Canc elled via OM: Order cancelled - Patient discharged Performed By: #### L 100.0100, L500.2500 ####[facility] [address] [place], [address] CREAT,SERUM Normal 0.70-1.20 [facility] Comment on above: Result Comment: Canc elled via OM: Order cancelled - Patient discharged Performed By: #### L 100.0100, L500.2500 ####[facility] [address] [place], [address] eGFR Normal >60 [facility] Comment on above: Result Comment: Canc elled via OM: Order cancelled - Patient discharged Performed By: #### L 100.0100, L500.2500 ####[facility] [address] [place], [address] GAP Normal 5-15 [facility] Comment on above: Result Comment: Canc elled via OM: Order cancelled - Patient discharged Performed By: #### L 100.0100, L500.2500 ####[facility] [address] [place], [address] GLU Normal 70-99 [facility] Comment on above: Result Comment: Canc elled via OM: Order cancelled - Patient discharged Performed By: #### L 100.0100, L500.2500 ####[facility] [address] [place], [address] Potassium Normal 3.3-5.1 [facility] Comment on above: Result Comment: Canc elled via OM: Order cancelled - Patient discharged Performed By: #### L 100.0100, L500.2500 ####[facility] [address] [place], [address] Basic Metabolic Profile (BMP) Normal 133-145 [facility] Comment on above: Result Comment: Canc elled via OM: Order cancelled - Patient discharged Performed By: #### L 100.0100, L500.2500 ####[facility] [address] [place], [address] CBC W/Diff, Automatedon 05-1 Absolute Neut Normal 2.0-7.7 [facility] Comment on above: Result Comment: Canc elled via OM: Order cancelled - Patient discharged Performed By: #### L 100.0100, L500.2500 ####[facility] [address] [place], [address] HCT Normal 37-47 [facility] Comment on above: Result Comment: Canc elled via OM: Order cancelled - Patient discharged Performed By: #### L 100.0100, L500.2500 ####[facility] [address] [place], [address] HGB Normal 12.0-15.0 [facility] Comment on above: Result Comment: Canc elled via OM: Order cancelled - Patient discharged Performed By: #### L 100.0100, L500.2500 ####[facility] [address] [place], [address] MCH Normal 27.0-32.0 [facility] Comment on above: Result Comment: Canc elled via OM: Order cancelled - Patient discharged Performed By: #### L 100.0100, L500.2500 ####[facility] [address] [place], [address] MCHC Normal 32-36 [facility] Comment on above: Result Comment: Canc elled via OM: Order cancelled - Patient discharged Performed By: #### L 100.0100, L500.2500 ####[facility] [address] [place], [address] MCV Normal 81-99 [facility] Comment on above: Result Comment: Canc elled via OM: Order cancelled - Patient discharged Performed By: #### L 100.0100, L500.2500 ####[facility] [address] [place], [address] NEUT% Normal 47-70 [facility] Comment on above: Result Comment: Canc elled via OM: Order cancelled - Patient discharged Performed By: #### L 100.0100, L500.2500 ####[facility] [address] [place], [address] PLT Normal 150-450 [facility] Comment on above: Result Comment: Canc elled via OM: Order cancelled - Patient discharged Performed By: #### L 100.0100, L500.2500 ####[facility] [address] [place], [address] RBC Normal 4.2-5.4 [facility] Comment on above: Result Comment: Canc elled via OM: Order cancelled - Patient discharged Performed By: #### L 100.0100, L500.2500 ####[facility] [address] [place], [address] RDW CV Normal 11.6-14.6 [facility] Comment on above: Result Comment: Canc elled via OM: Order cancelled - Patient discharged Performed By: #### L 100.0100, L500.2500 ####[facility] [address] [place], [address] RDW SD Normal 35.1-43.9 [facility] Comment on above: Result Comment: Canc elled via OM: Order cancelled - Patient discharged Performed By: #### L 100.0100, L500.2500 ####[facility] [address] [place], [address] WBC Normal 4.4-11.0 [facility] Comment on above: Result Comment: Canc elled via OM: Order cancelled - Patient discharged Performed By: #### L 100.0100, L500.2500 ####[facility] [address] [place], [address] Absolute lymphocyte countOrd ered By: Daya Morgan on 03-30-2025 Lymphocytes Auto (Unsp spec) [#/Vol] 1.33 10*3/uL 0.83-4.51 [facility] Absolute neutrophil countOrd ered By: Daya Morgan on 03-30-2025 Neutrophils (Bld) [#/Vol] 6.3 10*3/uL 2.0-7.7 [facility] Anion gap in Serum or Plasma Ordered By: Daya Morgan on 03-30-2025 Anion gap [Moles/Vol] 9 mmol/L 5-15 [facility] Automated lymphocyte count a s percentage of total leukocytesOrdered By: Daya Morgan on 03-30-2025 Lymphocytes/100 WBC Auto (Unsp spec) 15.4 % Low 19-41 [facility] BUN/creatinine ratioOrdered By: Daya Morgan on 03-30-2025 Urea nitrogen/Creatinine [Mass ratio] 14.8 mg/mg 10-20 [facility] Basophil percentageOrdered B y: Daya Morgan on 03-30-2025 Basophils/100 WBC (Bld) 0.7 % 0-1 [facility] Carbon dioxide, total [Moles /volume] in Central venous bloodOrdered By: Daya Morgan on 03-30-2025 CO2 [Moles/Vol] 28.0 mmol/L 21.0-32.0 [facility] Chloride assayOrdered By: Will Morgan on 03-30-2025 Chloride [Moles/Vol] 105 mmol/L 98-108 [facility] Eosinophil percentageOrdered By: Daya Morgan on 03-30-2025 Eosinophils/100 WBC (Bld) 1.4 % 0-5 [facility] Erythrocyte distribution wid th ratioOrdered By: Daya Morgan on 03-30-2025 Erythrocyte distribution width (RBC) [Ratio] 14.2 % 11.6-14.6 [facility] Erythrocyte distribution wid th standard deviationOrdered By: Daya Morgan on 03-30-2025 Erythrocyte distribution width (RBC) [Ratio] 48.0 fl High 35.1-43.9 [facility] Glomerular filtration rate ( GFR) estimation/1.73 sq m using serum, plasma, or whole bOrdered By: Daya Morgan on 03-30-2025 GFR/1.73 sq M.predicted among non-blacks MDRD (S/P/Bld) [Vol rate/Area] 70 mL/min/{1.73_m2} >60 [facility] Comment on above: mL/min/1.73m2 CKD-EP I Creatinine Equation (2020) Hematocrit Auto (Bld) [Volum e fraction]Ordered By: Daya Morgan on 03-30-2025 Hematocrit (Bld) [Volume fraction] 34.1 % Low 37-47 [facility] Hemoglobin measurementOrdere d By: Daya Morgan on 03-30-2025 Hemoglobin (Bld) [Mass/Vol] 11.3 g/dL Low 12.0-15.0 [facility] Immature granulocytes/100 WB C Auto (Bld)Ordered By: Daya Morgan on 03-30-2025 Immature granulocytes/100 WBC (Bld) 0.900 % 0.0-0.9 [facility] Comment on above: IG% - Immature Granu locytes (promyelocytes, myelocytes and metamyelocytes) > 1% indicates that a LEFT SHIFT is Present. MCV (mean corpuscular volume ) determinationOrdered By: Daya Morgan on 03-30-2025 MCV (RBC) [Entitic vol] 93.7 fL 81-99 [facility] Mean corpuscular hemoglobin (MCH) determinationOrdered By: Daya Morgan on 03-30-2025 MCH (RBC) [Entitic mass] 31.0 pg 27.0-32.0 [facility] Mean corpuscular hemoglobin concentration (MCHC) determinationOrdered By: Daya Morgan on 03-30-2025 MCHC (RBC) [Mass/Vol] 33.1 g/dL 32-36 [facility] Mean platelet volume determi nationOrdered By: Daya Morgan on 03-30-2025 Platelet mean volume (Bld) [Entitic vol] 10.8 fL 6.2-12.0 [facility] Monocyte percentageOrdered B y: Daya Morgan on 03-30-2025 Monocytes/100 WBC (Bld) 8.2 % 0-10 [facility] Neutrophil percentageOrdered By: Daya Morgan on 03-30-2025 Neutrophils/100 WBC (Bld) 73.4 % High 47-70 [facility] Nucleated red blood cell per centageOrdered By: Daya Morgan on 03-30-2025 Nucleated RBC/100 WBC (Bld) [Ratio] 0 % 0-5 [facility] Platelet countOrdered By: Will Morgan on 03-30-2025 Platelets (Bld) [#/Vol] 160 10*3/uL 150-450 [facility] Potassium measurement (mass/ volume)Ordered By: Daya Morgan on 03-30-2025 Potassium (Unsp spec) [Mass/Vol] 3.6 mmol/L 3.3-5.1 [facility] RBC Auto (Bld) [#/Vol]Ordere d By: Daya Morgan on 03-30-2025 RBC (Bld) [#/Vol] 3.64 10*6/uL Low 4.2-5.4 [facility] Serum creatinine measurement (mass/volume)Ordered By: Daya Morgan on 03-30-2025 Creatinine [Mass/Vol] 0.83 mg/dL 0.70-1.20 [facility] Serum glucose measurement (m ass/volume)Ordered By: Daya Morgan on 03-30-2025 Glucose [Mass/Vol] 91 mg/dL 70-99 [facility] Serum or plasma calcium thomas urement (mass/volume)Ordered By: Daya Morgan on 03-30-2025 Calcium [Mass/Vol] 9.0 mg/dL 7.6-11.0 [facility] Serum or plasma urea nitroge n measurement (mass/volume)Ordered By: Daya Morgan on 03-30-2025 Urea nitrogen [Mass/Vol] 12 mg/dL 4-19 [facility] Sodium levelOrdered By: Katarina Morgan on 03-30-2025 Sodium [Moles/Vol] 141 mmol/L 133-145 [facility] White blood cell (WBC) count Ordered By: Daya Morgan on 03-30-2025 WBC (Bld) [#/Vol] 8.6 10*3/uL 4.4-11.0 [facility] Basic Metabolic Profile (BMP )on 03-26-2025 BUN Normal 4-19 [facility] Comment on above: Result Comment: Canc elled via OM: Order cancelled - Patient discharged Performed By: #### L 100.0100, L500.2500 ####[facility] [address] [place], [address] BUN/CRE Normal 10-20 [facility] Comment on above: Result Comment: Canc elled via OM: Order cancelled - Patient discharged Performed By: #### L 100.0100, L500.2500 ####[facility] [address] [place], [address] Calcium Normal 7.6-11.0 [facility] Comment on above: Result Comment: Canc elled via OM: Order cancelled - Patient discharged Performed By: #### L 100.0100, L500.2500 ####[facility] [address] [place], [address] CL Normal 98-108 [facility] Comment on above: Result Comment: Canc elled via OM: Order cancelled - Patient discharged Performed By: #### L 100.0100, L500.2500 ####[facility] [address] [place], [address] CO2 Normal 21.0-32.0 [facility] Comment on above: Result Comment: Canc elled via OM: Order cancelled - Patient discharged Performed By: #### L 100.0100, L500.2500 ####[facility] [address] [place], [address] CREAT,SERUM Normal 0.70-1.20 [facility] Comment on above: Result Comment: Canc elled via OM: Order cancelled - Patient discharged Performed By: #### L 100.0100, L500.2500 ####[facility] [address] [place], [address] eGFR Normal >60 [facility] Comment on above: Result Comment: Canc elled via OM: Order cancelled - Patient discharged Performed By: #### L 100.0100, L500.2500 ####[facility] [address] [place], [address] GAP Normal 5-15 [facility] Comment on above: Result Comment: Canc elled via OM: Order cancelled - Patient discharged Performed By: #### L 100.0100, L500.2500 ####[facility] [address] [place], [address] GLU Normal 70-99 [facility] Comment on above: Result Comment: Canc elled via OM: Order cancelled - Patient discharged Performed By: #### L 100.0100, L500.2500 ####[facility] [address] [place], [address] Potassium Normal 3.3-5.1 [facility] Comment on above: Result Comment: Canc elled via OM: Order cancelled - Patient discharged Performed By: #### L 100.0100, L500.2500 ####[facility] [address] [place], [address] Basic Metabolic Profile (BMP) Normal 133-145 [facility] Comment on above: Result Comment: Canc elled via OM: Order cancelled - Patient discharged Performed By: #### L 100.0100, L500.2500 ####[facility] [address] [place], [address] CBC W/Diff, Automatedon 05-0 -2024 Absolute Neut Normal 2.0-7.7 [facility] Comment on above: Result Comment: Canc elled via OM: Order cancelled - Patient discharged Performed By: #### L 100.0100, L500.2500 ####[facility] [address] [place], [address] HCT Normal 37-47 [facility] Comment on above: Result Comment: Canc elled via OM: Order cancelled - Patient discharged Performed By: #### L 100.0100, L500.2500 ####[facility] [address] [place], [address] HGB Normal 12.0-15.0 [facility] Comment on above: Result Comment: Canc elled via OM: Order cancelled - Patient discharged Performed By: #### L 100.0100, L500.2500 ####[facility] [address] [place], [address] MCH Normal 27.0-32.0 [facility] Comment on above: Result Comment: Canc elled via OM: Order cancelled - Patient discharged Performed By: #### L 100.0100, L500.2500 ####[facility] [address] [place], [address] MCHC Normal 32-36 [facility] Comment on above: Result Comment: Canc elled via OM: Order cancelled - Patient discharged Performed By: #### L 100.0100, L500.2500 ####[facility] [address] [place], [address] MCV Normal 81-99 [facility] Comment on above: Result Comment: Canc elled via OM: Order cancelled - Patient discharged Performed By: #### L 100.0100, L500.2500 ####[facility] [address] [place], [address] NEUT% Normal 47-70 [facility] Comment on above: Result Comment: Canc elled via OM: Order cancelled - Patient discharged Performed By: #### L 100.0100, L500.2500 ####[facility] [address] [place], [address] PLT Normal 150-450 [facility] Comment on above: Result Comment: Canc elled via OM: Order cancelled - Patient discharged Performed By: #### L 100.0100, L500.2500 ####[facility] [address] [place], [address] RBC Normal 4.2-5.4 [facility] Comment on above: Result Comment: Canc elled via OM: Order cancelled - Patient discharged Performed By: #### L 100.0100, L500.2500 ####[facility] [address] [place], [address] RDW CV Normal 11.6-14.6 [facility] Comment on above: Result Comment: Canc elled via OM: Order cancelled - Patient discharged Performed By: #### L 100.0100, L500.2500 ####[facility] [address] [place], [address] RDW SD Normal 35.1-43.9 [facility] Comment on above: Result Comment: Canc elled via OM: Order cancelled - Patient discharged Performed By: #### L 100.0100, L500.2500 ####[facility] [address] [place], [address] WBC Normal 4.4-11.0 [facility] Comment on above: Result Comment: Canc elled via OM: Order cancelled - Patient discharged Performed By: #### L 100.0100, L500.2500 ####[facility] [address] [place], [address] Absolute lymphocyte countOrd ered By: Adele Gusman on 03-23-2025 Lymphocytes Auto (Unsp spec) [#/Vol] 1.22 10*3/uL 0.83-4.51 [facility] Absolute neutrophil countOrd ered By: Adele Gusman on 03-23-2025 Neutrophils (Bld) [#/Vol] 6.8 10*3/uL 2.0-7.7 [facility] Anion gap in Serum or Plasma Ordered By: Adele Gusman on 03-23-2025 Anion gap [Moles/Vol] 10 mmol/L 5-15 [facility] Automated lymphocyte count a s percentage of total leukocytesOrdered By: Adele Gusman on 03-23-2025 Lymphocytes/100 WBC Auto (Unsp spec) 13.5 % Low 19-41 [facility] BUN/creatinine ratioOrdered By: Adele Gusman on 03-23-2025 Urea nitrogen/Creatinine [Mass ratio] 21.5 mg/mg High 10-20 [facility] Basophil percentageOrdered B y: Adele Gusman on 03-23-2025 Basophils/100 WBC (Bld) 0.4 % 0-1 [facility] Bilirubin, totalOrdered By: Adele Gusman on 03-23-2025 Bilirubin [Mass/Vol] 1.28 mg/dL 0.00-1.30 [facility] Carbon dioxide, total [Moles /volume] in Central venous bloodOrdered By: Adele Gusman on 03-23-2025 CO2 [Moles/Vol] 24.4 mmol/L 21.0-32.0 [facility] Chloride assayOrdered By: Jennifer Gusman on 03-23-2025 Chloride [Moles/Vol] 104 mmol/L 98-108 [facility] Eosinophil percentageOrdered By: Adele Gusman on 03-23-2025 Eosinophils/100 WBC (Bld) 1.9 % 0-5 [facility] Erythrocyte distribution wid th ratioOrdered By: Adele Gusman on 03-23-2025 Erythrocyte distribution width (RBC) [Ratio] 15.0 % High 11.6-14.6 [facility] Erythrocyte distribution wid th standard deviationOrdered By: elsa Gusman on 03-23-2025 Erythrocyte distribution width (RBC) [Ratio] 50.8 fl High 35.1-43.9 [facility] Glomerular filtration rate ( GFR) estimation/1.73 sq m using serum, plasma, or whole bOrdered By: Adele Gusman on 03-23-2025 GFR/1.73 sq M.predicted among non-blacks MDRD (S/P/Bld) [Vol rate/Area] 75 mL/min/{1.73_m2} >60 [facility] Comment on above: mL/min/1.73m2 CKD-EP I Creatinine Equation (2020) Hematocrit Auto (Bld) [Volum e fraction]Ordered By: Adele Gusman on 03-23-2025 Hematocrit (Bld) [Volume fraction] 34.2 % Low 37-47 [facility] Hemoglobin measurementOrdere d By: Adele Gusman on 03-23-2025 Hemoglobin (Bld) [Mass/Vol] 11.6 g/dL Low 12.0-15.0 [facility] Immature granulocytes/100 WB C Auto (Bld)Ordered By: Adele Gusman on 03-23-2025 Immature granulocytes/100 WBC (Bld) 1.100 % High 0.0-0.9 [facility] Comment on above: IG% - Immature Granu locytes (promyelocytes, myelocytes and metamyelocytes) > 1% indicates that a LEFT SHIFT is Present. Laboratory - Chemistry and C hemistry - challengeOrdered By: Adele Gusman on 03-23-2025 AST [Catalytic activity/Vol] 16 U/L <32 [facility] MCV (mean corpuscular volume ) determinationOrdered By: Adele Gusman on 03-23-2025 MCV (RBC) [Entitic vol] 91.9 fL 81-99 [facility] Mean corpuscular hemoglobin (MCH) determinationOrdered By: Adele Gusman on 03-23-2025 MCH (RBC) [Entitic mass] 31.2 pg 27.0-32.0 [facility] Mean corpuscular hemoglobin concentration (MCHC) determinationOrdered By: Adele Gusman on 03-23-2025 MCHC (RBC) [Mass/Vol] 33.9 g/dL 32-36 [facility] Mean platelet volume determi nationOrdered By: Adele Gusman on 03-23-2025 Platelet mean volume (Bld) [Entitic vol] 10.1 fL 6.2-12.0 [facility] Monocyte percentageOrdered B y: Adele Gusman on 03-23-2025 Monocytes/100 WBC (Bld) 7.8 % 0-10 [facility] Neutrophil percentageOrdered By: Adele Gusman on 03-23-2025 Neutrophils/100 WBC (Bld) 75.3 % High 47-70 [facility] Nucleated red blood cell per centageOrdered By: Adele Gusman on 03-23-2025 Nucleated RBC/100 WBC (Bld) [Ratio] 0 % 0-5 [facility] Platelet countOrdered By: Jennifer Gusman on 03-23-2025 Platelets (Bld) [#/Vol] 241 10*3/uL 150-450 [facility] Potassium measurement (mass/ volume)Ordered By: Adele Gusman on 03-23-2025 Potassium (Unsp spec) [Mass/Vol] 3.5 mmol/L 3.3-5.1 [facility] RBC Auto (Bld) [#/Vol]Ordere d By: Adele Gusman on 03-23-2025 RBC (Bld) [#/Vol] 3.72 10*6/uL Low 4.2-5.4 [facility] Serum creatinine measurement (mass/volume)Ordered By: Adele Gusman on 03-23-2025 Creatinine [Mass/Vol] 0.78 mg/dL 0.70-1.20 [facility] Serum globulin measurementOr dered By: Adele Gusman on 03-23-2025 Globulin (S) [Mass/Vol] 2.3 g/dL 2.2-4.2 [facility] Serum glucose measurement (m ass/volume)Ordered By: Adele Gusman on 03-23-2025 Glucose [Mass/Vol] 95 mg/dL 70-99 [facility] Serum or plasma alanine tillman otransferase (ALT) measurementOrdered By: Adele Gusman on 03-23-2025 ALT [Catalytic activity/Vol] 6 U/L <35 [facility] Serum or plasma albumin thomas urement (mass/volume)Ordered By: Adele Gusman on 03-23-2025 Albumin [Mass/Vol] 3.5 g/dL 3.4-4.8 [facility] Serum or plasma albumin/glob ulin mass ratioOrdered By: Adele Gusman on 03-23-2025 Albumin/Globulin [Mass ratio] 1.5 {ratio} 0.9-2.4 [facility] Serum or plasma alkaline mariah sphatase measurementOrdered By: Adele Gusman on 03-23-2025 ALP [Catalytic activity/Vol] 135 U/L High 35-104 [facility] Serum or plasma calcium thomas urement (mass/volume)Ordered By: Adele Gusman on 03-23-2025 Calcium [Mass/Vol] 9.0 mg/dL 7.6-11.0 [facility] Serum or plasma urea nitroge n measurement (mass/volume)Ordered By: Adele Gusman on 03-23-2025 Urea nitrogen [Mass/Vol] 17 mg/dL 4-19 [facility] Sodium levelOrdered By: Sharlene aleah Naseem on 03-23-2025 Sodium [Moles/Vol] 139 mmol/L 133-145 [facility] Total proteinOrdered By: Amadou noriega Naseem on 03-23-2025 Protein [Mass/Vol] 5.8 g/dL Low 5.9-8.4 [facility] White blood cell (WBC) count Ordered By: Adele Gusman on 03-23-2025 WBC (Bld) [#/Vol] 9.1 10*3/uL 4.4-11.0 [facility] Absolute lymphocyte countOrd ered By: Garfield Yo on 03-19-2025 Lymphocytes Auto (Unsp spec) [#/Vol] 1.65 10*3/uL 0.83-4.51 [facility] Absolute neutrophil countOrd ered By: Garfield Yo on 03-19-2025 Neutrophils (Bld) [#/Vol] 5.7 10*3/uL 2.0-7.7 [facility] Anion gap in Serum or Plasma Ordered By: Garfield Yo on 03-19-2025 Anion gap [Moles/Vol] 7 mmol/L 5-15 [facility] Automated lymphocyte count a s percentage of total leukocytesOrdered By: Garfield Yo on 03-19-2025 Lymphocytes/100 WBC Auto (Unsp spec) 19.7 % 19-41 [facility] BUN/creatinine ratioOrdered By: Garfield Yo on 03-19-2025 Urea nitrogen/Creatinine [Mass ratio] 17.9 mg/mg 10- [facility] Basic Metabolic Profile (BMP )on 03-19-2025 BUN/CRE 17.9 RATIO Normal - [facility] Comment on above: Performed By: #### L 100.0100, L500.2500 ####[facility] [address] [place], [address] Calcium [Mass/Vol] 8.8 mg/dL Normal 7.6-11.0 [facility] Comment on above: Performed By: #### L 100.0100, L500.2500 ####[facility] [address] [place], [address] Chloride [Moles/Vol] 107 mmol/L Normal 98-108 [facility] Comment on above: Performed By: #### L 100.0100, L500.2500 ####[facility] [address] [place], [address] CO2 [Moles/Vol] 26.6 mmol/L Normal 21.0-32.0 [facility] Comment on above: Performed By: #### L 100.0100, L500.2500 ####[facility] [address] [place], [address] Creatinine [Mass/Vol] 1.02 mg/dL Normal 0.70-1.20 [facility] Comment on above: Performed By: #### L 100.0100, L500.2500 ####[facility] [address] [place], [address] ECRCL 32.95 ml/min Low 50-250 [facility] Comment on above: Performed By: #### L 100.0100, L500.2500 ####[facility] [address] [place], [address] GAP 7 Normal 5-15 [facility] Comment on above: Performed By: #### L 100.0100, L500.2500 ####[facility] [address] [place], [address] GFR/1.73 sq M.predicted among non-blacks MDRD (S/P/Bld) [Vol rate/Area] 54 mL/min/{1.73_m2} Low >60 [facility] Comment on above: Result Comment: mL/m in/1.73m2 CKD-EPI Creatinine Equation (2020) Performed By: #### L 100.0100, L500.2500 ####[facility] [address] [place], [address] Glucose [Mass/Vol] 92 mg/dL Normal 70-99 [facility] Comment on above: Performed By: #### L 100.0100, L500.2500 ####[facility] [address] [place], [address] Potassium [Moles/Vol] 4.1 mmol/L Normal 3.3-5.1 [facility] Comment on above: Result Comment: Hemo lysis present, Results??could be affected.?? Performed By: #### L 100.0100, L500.2500 ####[facility] [address] [place], [address] Sodium [Moles/Vol] 141 mmol/L Normal 133-145 [facility] Comment on above: Performed By: #### L 100.0100, L500.2500 ####[facility] [address] [place], [address] Urea nitrogen [Mass/Vol] 18 mg/dL Normal 4-19 [facility] Comment on above: Performed By: #### L 100.0100, L500.2500 ####[facility] [address] [place], [address] Basophil percentageOrdered B y: Garfield Yo on 03-19-2025 Basophils/100 WBC (Bld) 0.6 % 0-1 [facility] CBC W/Diff, Automatedon 05 Absolute Lymph 1.65 X10 3/uL Normal 0.83-4.51 [facility] Comment on above: Performed By: #### L 100.0100, L500.2500 ####[facility] [address] [place], [address] Absolute Neut 5.7 X10 3/uL Normal 2.0-7.7 [facility] Comment on above: Performed By: #### L 100.0100, L500.2500 ####[facility] [address] [place], [address] Basophils/100 WBC (Bld) 0.6 % Normal 0-1 [facility] Comment on above: Performed By: #### L 100.0100, L500.2500 ####[facility] [address] [place], [address] Eosinophils/100 WBC (Bld) 2.1 % Normal 0-5 [facility] Comment on above: Performed By: #### L 100.0100, L500.2500 ####[facility] [address] [place], [address] Erythrocyte distribution width (RBC) [Ratio] 15.7 % High 11.6-14.6 [facility] Comment on above: Performed By: #### L 100.0100, L500.2500 ####[facility] [address] [place], [address] Hematocrit (Bld) [Volume fraction] 30.9 % Low 37-47 [facility] Comment on above: Performed By: #### L 100.0100, L500.2500 ####[facility] [address] [place], [address] Hemoglobin (Bld) [Mass/Vol] 10.4 g/dL Low 12.0-15.0 [facility] Comment on above: Performed By: #### L 100.0100, L500.2500 ####[facility] [address] [place], [address] IG% 1.600 High 0.0-0.9 [facility] Comment on above: Result Comment: IG% - Immature Granulocytes (promyelocytes, myelocytes andmetamyelocytes) > 1% indicates that a LEFT SHIFT is Present. Performed By: #### L 100.0100, L500.2500 ####[facility] [address] [place], [address] Lymphocytes/100 WBC (Bld) 19.7 % Normal 19-41 [facility] Comment on above: Performed By: #### L 100.0100, L500.2500 ####[facility] [address] [place], [address] MCH (RBC) [Entitic mass] 31.3 pg Normal 27.0-32.0 [facility] Comment on above: Performed By: #### L 100.0100, L500.2500 ####[facility] [address] [place], [address] MCHC (RBC) [Mass/Vol] 33.7 g/dL Normal 32-36 [facility] Comment on above: Performed By: #### L 100.0100, L500.2500 ####[facility] [address] [place], [address] MCV (RBC) [Entitic vol] 93.1 fL Normal 81-99 [facility] Comment on above: Performed By: #### L 100.0100, L500.2500 ####[facility] [address] [place], [address] Monocytes/100 WBC (Bld) 8.5 % Normal 0-10 [facility] Comment on above: Performed By: #### L 100.0100, L500.2500 ####[facility] [address] [place], [address] Neutrophils/100 WBC (Bld) 67.5 % Normal 47-70 [facility] Comment on above: Performed By: #### L 100.0100, L500.2500 ####[facility] [address] [place], [address] Nucleated RBC (Bld) [#/Vol] 0 10*3/uL Normal 0-5 [facility] Comment on above: Performed By: #### L 100.0100, L500.2500 ####[facility] [address] [place], [address] Platelet mean volume (Bld) [Entitic vol] 9.1 fL Normal 6.2-12.0 [facility] Comment on above: Performed By: #### L 100.0100, L500.2500 ####[facility] [address] [place], [address] Platelets (Bld) [#/Vol] 262 10*3/uL Normal 150-450 [facility] Comment on above: Performed By: #### L 100.0100, L500.2500 ####[facility] [address] [place], [address] RBC (Bld) [#/Vol] 3.32 10*6/uL Low 4.2-5.4 [facility] Comment on above: Performed By: #### L 100.0100, L500.2500 ####[facility] [address] [place], [address] RDW SD 53.2 fl High 35.1-43.9 [facility] Comment on above: Performed By: #### L 100.0100, L500.2500 ####[facility] [address] [place], [address] WBC (Bld) [#/Vol] 8.4 10*3/uL Normal 4.4-11.0 [facility] Comment on above: Performed By: #### L 100.0100, L500.2500 ####[facility] [address] [place], [address] CNPNon 03-19-2025 CNPN Telephone (NAVWST) MICHAELA BRANDT ([id number]) 1940 F Date Time Provider Department 03/19/25 RENATE MONTGOMERY During your visit today, we recorded the following information about you: Renate Montgomery, JUVE 03/19/2025 3:34 PM Signed Thomas spoke with patient daughter Osmany. Osmany notes that patient is currently at [facility] right now. Transitioned there today. Osmany notes that she needs to cancel patient appt with Dr. Santiago tomorrow. Thomas notes that she will send message to Dr. Santiago regarding this need. Osmany also noted that she is going to send My Chart message as well in regards to cancelling appt. Osmany notes that the hospital Sw had encouraged patient to go to [facility] for further care after being in [facility]. Daughter is trying to get with admissions at [facility] in regards to them saying that she is going there for 30 days and being placed in LTC and not Rehab. Daughter also notes that she has an appt next week with Software Maintenance Engineer for financial planning. Osmany also noted that she would like patient to see Dr. Santiago if and when she leaves [place]. While in [place], patient will be followed by their provider. Sw did encourage patient daughter to also reach out to [facility] and [facility] for further support guidance regarding LTC planning. Sw will forward note to Dr. Santiago and her office in regards to appt cancellation need for tomorrow. Deshawn Lombardo LPN 03/19/2025 4:00 PM Signed Canceled appointment for tomorrow per patients daughter request. Deshawn Lombardo LPN March 19, 2025 4:00 PM Anaid Santiago MD 03/19/2025 4:55 PM Signed Thanks and noted Anaid Patel MD, Erin, MED DIR 03/20/2025 3:12 PM Signed Osmany reached out to in regards to question about patient seeing [facility] provider and liking to keep Dr. Santiago. Osmany notes that she feels like patient plan at this time will be to stay at [facility] for 30 days. Osmany and this Sw discussed speaking with [facility] admissions and in regards to consent to sign for them to share info with Dr. Santiago. Osmany notes that she is going to try and speak with admissions today as she wants to see what happened with patient transitioning to rehab services instead of LTC. Osmany notes that she still has appt next week with Software Maintenance Engineer as well. Osmany notes that she is also going to check with SW at [facility] in regards to counselor option for patient. This Sw is not aware of counseling service that provides mental health services at [place]. Daughter notes that she will ask about mental health treatment options there at [place]. Daughter is concerned about patient being "depressed" and wanting to obtain support for patient while in LTC. Osmany has this direct number for any further needs. Osmany states that she also plans on reaching out to [facility], today as well for questions regarding other LTC if patient should need to look at living in a LTC indefinitely. Anaid Santiago MD 03/20/2025 5:20 PM Signed Yes, I will follow Michaela and be in touch with what happens to her. Regards, Anaid Santiago MD Allergies As of Date: 03/19/2025 (No Known Allergies) Date Reviewed: 02/19/2025 Reviewed by: Venkata, Carolina, MOLDER SHOULDER PAD - Fully Assessed Prescriptions as of 03/20/2025 [...] Of Date: 03/19/2025 (None) Encounter Status:Closed by NICKOLAS MCELROY on 03/19/25 [facility] Carbon dioxide, total [Moles /volume] in Central venous bloodOrdered By: Garfield Yo on 03-19-2025 CO2 [Moles/Vol] 26.6 mmol/L 21.0-32.0 [facility] Chloride assayOrdered By: Kristopher Yo on 03-19-2025 Chloride [Moles/Vol] 107 mmol/L 98-108 [facility] Eosinophil percentageOrdered By: Garfield Yo 03-19-2025 Eosinophils/100 WBC (Bld) 2.1 % 0-5 [facility] Erythrocyte distribution wid th ratioOrdered By: Garfield Yo on 03-19-2025 Erythrocyte distribution width (RBC) [Ratio] 15.7 % High 11.6-14.6 [facility] Erythrocyte distribution wid th standard deviationOrdered By: Garfield Yo on 03-19-2025 Erythrocyte distribution width (RBC) [Ratio] 53.2 fl High 35.1-43.9 [facility] Glomerular filtration rate ( GFR) estimation/1.73 sq m using serum, plasma, or whole bOrdered By: Garfield Yo on 03-19-2025 GFR/1.73 sq M.predicted among non-blacks MDRD (S/P/Bld) [Vol rate/Area] 54 mL/min/{1.73_m2} Low >60 [facility] Comment on above: mL/min/1.73m2 CKD-EP I Creatinine Equation (2020) Hematocrit Auto (Bld) [Volum e fraction]Ordered By: Garfield Yo on 03-19-2025 Hematocrit (Bld) [Volume fraction] 30.9 % Low 37-47 [facility] Hemoglobin measurementOrdere d By: Garfield Yo on 03-19-2025 Hemoglobin (Bld) [Mass/Vol] 10.4 g/dL Low 12.0-15.0 [facility] Immature granulocytes/100 WB C Auto (Bld)Ordered By: Garfield Yo on 03-19-2025 Immature granulocytes/100 WBC (Bld) 1.600 % High 0.0-0.9 [facility] Comment on above: IG% - Immature Granu locytes (promyelocytes, myelocytes and metamyelocytes) > 1% indicates that a LEFT SHIFT is Present. MCV (mean corpuscular volume ) determinationOrdered By: Garfield Yo on 03-19-2025 MCV (RBC) [Entitic vol] 93.1 fL 81-99 [facility] Mean corpuscular hemoglobin (MCH) determinationOrdered By: Garfield Yo 03-19-2025 MCH (RBC) [Entitic mass] 31.3 pg 27.0-32.0 [facility] Mean corpuscular hemoglobin concentration (MCHC) determinationOrdered By: Garfield Yo 03-19-2025 MCHC (RBC) [Mass/Vol] 33.7 g/dL 32-36 [facility] Mean platelet volume determi nationOrdered By: Garfield Yo on 03-19-2025 Platelet mean volume (Bld) [Entitic vol] 9.1 fL 6.2-12.0 [facility] Monocyte percentageOrdered B y: Garfield Yo on 03-19-2025 Monocytes/100 WBC (Bld) 8.5 % 0-10 [facility] Neutrophil percentageOrdered By: Garfield Yo 03-19-2025 Neutrophils/100 WBC (Bld) 67.5 % 47-70 [facility] Nucleated red blood cell per centageOrdered By: Garfield Yo on 03-19-2025 Nucleated RBC/100 WBC (Bld) [Ratio] 0 % 0-5 [facility] Platelet countOrdered By: Kristopher Yo on 03-19-2025 Platelets (Bld) [#/Vol] 262 10*3/uL 150-450 [facility] Potassium measurement (mass/ volume)Ordered By: Garfield Yo on 03-19-2025 Potassium (Unsp spec) [Mass/Vol] 4.1 mmol/L 3.3-5.1 [facility] Comment on above: Hemolysis present, R esults could be affected. RBC Auto (Bld) [#/Vol]Ordere d By: Garfield Yo on 03-19-2025 RBC (Bld) [#/Vol] 3.32 10*6/uL Low 4.2-5.4 [facility] Serum creatinine measurement (mass/volume)Ordered By: Garfield Yo on 03-19-2025 Creatinine [Mass/Vol] 1.02 mg/dL 0.70-1.20 [facility] Serum glucose measurement (m ass/volume)Ordered By: Garfield Yo on 03-19-2025 Glucose [Mass/Vol] 92 mg/dL 70-99 [facility] Serum or plasma calcium thomas urement (mass/volume)Ordered By: Garfield Yo on 03-19-2025 Calcium [Mass/Vol] 8.8 mg/dL 7.6-11.0 [facility] Serum or plasma urea nitroge n measurement (mass/volume)Ordered By: Garfield Yo on 03-19-2025 Urea nitrogen [Mass/Vol] 18 mg/dL 4-19 [facility] Sodium levelOrdered By: Garfield Yo on 03-19-2025 Sodium [Moles/Vol] 141 mmol/L 133-145 [facility] White blood cell (WBC) count Ordered By: Garfield Yo on 03-19-2025 WBC (Bld) [#/Vol] 8.4 10*3/uL 4.4-11.0 [facility] Basic Metabolic Profile (BMP )on 03-12-2025 BUN/CRE 19.2 RATIO Normal 10-20 [facility] Comment on above: Performed By: #### L 100.0100, L500.2500 ####[facility] [address] [place], [address] Calcium [Mass/Vol] 8.6 mg/dL Normal 7.6-11.0 [facility] Comment on above: Performed By: #### L 100.0100, L500.2500 ####[facility] [address] [place], [address] Chloride [Moles/Vol] 105 mmol/L Normal 98-108 [facility] Comment on above: Performed By: #### L 100.0100, L500.2500 ####[facility] [address] [place], [address] CO2 [Moles/Vol] 26.6 mmol/L Normal 21.0-32.0 [facility] Comment on above: Performed By: #### L 100.0100, L500.2500 ####[facility] [address] [place], [address] Creatinine [Mass/Vol] 0.80 mg/dL Normal 0.70-1.20 [facility] Comment on above: Performed By: #### L 100.0100, L500.2500 ####[facility] [address] [place], [address] ECRCL 42.05 ml/min Low 50-250 [facility] Comment on above: Performed By: #### L 100.0100, L500.2500 ####[facility] [address] [place], [address] GAP 9 Normal 5-15 [facility] Comment on above: Performed By: #### L 100.0100, L500.2500 ####[facility] [address] [place], [address] GFR/1.73 sq M.predicted among non-blacks MDRD (S/P/Bld) [Vol rate/Area] 73 mL/min/{1.73_m2} Normal >60 [facility] Comment on above: Result Comment: mL/m in/1.73m2 CKD-EPI Creatinine Equation (2020) Performed By: #### L 100.0100, L500.2500 ####[facility] [address] [place], [address] Glucose [Mass/Vol] 90 mg/dL Normal 70-99 [facility] Comment on above: Performed By: #### L 100.0100, L500.2500 ####[facility] [address] [place], [address] Potassium [Moles/Vol] 3.9 mmol/L Normal 3.3-5.1 [facility] Comment on above: Result Comment: Hemo lysis present, Results??could be affected.?? Performed By: #### L 100.0100, L500.2500 ####[facility] [address] [place], [address] Sodium [Moles/Vol] 140 mmol/L Normal 133-145 [facility] Comment on above: Performed By: #### L 100.0100, L500.2500 ####[facility] [address] [place], [address] Urea nitrogen [Mass/Vol] 15 mg/dL Normal 4-19 [facility] Comment on above: Performed By: #### L 100.0100, L500.2500 ####[facility] [address] [place], [address] CBC W/Diff, Automatedon 04-2 Absolute Lymph 1.55 X10 3/uL Normal 0.83-4.51 [facility] Comment on above: Performed By: #### L 100.0100, L500.2500 ####[facility] [address] [place], [address] Absolute Neut 7.8 X10 3/uL High 2.0-7.7 [facility] Comment on above: Performed By: #### L 100.0100, L500.2500 ####[facility] [address] [place], [address] Basophils/100 WBC (Bld) 0.9 % Normal 0-1 [facility] Comment on above: Performed By: #### L 100.0100, L500.2500 ####[facility] [address] [place], [address] Eosinophils/100 WBC (Bld) 2.5 % Normal 0-5 [facility] Comment on above: Performed By: #### L 100.0100, L500.2500 ####[facility] [address] [place], [address] Erythrocyte distribution width (RBC) [Ratio] 16.0 % High 11.6-14.6 [facility] Comment on above: Performed By: #### L 100.0100, L500.2500 ####[facility] [address] [place], [address] Hematocrit (Bld) [Volume fraction] 28.8 % Low 37-47 [facility] Comment on above: Performed By: #### L 100.0100, L500.2500 ####[facility] [address] [place], [address] Hemoglobin (Bld) [Mass/Vol] 9.5 g/dL Low 12.0-15.0 [facility] Comment on above: Performed By: #### L 100.0100, L500.2500 ####[facility] [address] [place], [address] IG% 2.000 High 0.0-0.9 [facility] Comment on above: Result Comment: IG% - Immature Granulocytes (promyelocytes, myelocytes andmetamyelocytes) > 1% indicates that a LEFT SHIFT is Present. Performed By: #### L 100.0100, L500.2500 ####[facility] [address] [place], [address] Lymphocytes/100 WBC (Bld) 14.7 % Low 19-41 [facility] Comment on above: Performed By: #### L 100.0100, L500.2500 ####[facility] [address] [place], [address] MCH (RBC) [Entitic mass] 30.7 pg Normal 27.0-32.0 [facility] Comment on above: Performed By: #### L 100.0100, L500.2500 ####[facility] [address] [place], [address] MCHC (RBC) [Mass/Vol] 33.0 g/dL Normal 32-36 [facility] Comment on above: Performed By: #### L 100.0100, L500.2500 ####[facility] [address] [place], [address] MCV (RBC) [Entitic vol] 93.2 fL Normal 81-99 [facility] Comment on above: Performed By: #### L 100.0100, L500.2500 ####[facility] [address] [place], [address] Monocytes/100 WBC (Bld) 5.9 % Normal 0-10 [facility] Comment on above: Performed By: #### L 100.0100, L500.2500 ####[facility] [address] [place], [address] Neutrophils/100 WBC (Bld) 74.0 % High 47-70 [facility] Comment on above: Performed By: #### L 100.0100, L500.2500 ####[facility] [address] [place], [address] Nucleated RBC (Bld) [#/Vol] 0 10*3/uL Normal 0-5 [facility] Comment on above: Performed By: #### L 100.0100, L500.2500 ####[facility] [address] [place], [address] Platelet mean volume (Bld) [Entitic vol] 9.4 fL Normal 6.2-12.0 [facility] Comment on above: Performed By: #### L 100.0100, L500.2500 ####[facility] [address] [place], [address] Platelets (Bld) [#/Vol] 312 10*3/uL Normal 150-450 [facility] Comment on above: Performed By: #### L 100.0100, L500.2500 ####[facility] [address] [place], [address] RBC (Bld) [#/Vol] 3.09 10*6/uL Low 4.2-5.4 [facility] Comment on above: Performed By: #### L 100.0100, L500.2500 ####[facility] [address] [place], [address] RDW SD 52.6 fl High 35.1-43.9 [facility] Comment on above: Performed By: #### L 100.0100, L500.2500 ####[facility] [address] [place], [address] WBC (Bld) [#/Vol] 10.6 10*3/uL Normal 4.4-11.0 [facility] Comment on above: Performed By: #### L 100.0100, L500.2500 ####[facility] [address] [place], [address] Chest PA and Lateralon 03-11 Chest PA and Lateral Normal [facility] Basic Metabolic Profile (BMP )on 03-10-2025 BUN Normal 4-19 [facility] Comment on above: Result Comment: Canc elled via OM: Order cancelled - Patient discharged Performed By: #### L 100.0100, L500.2500 ####[facility] [address] [place], [address] BUN/CRE Normal 10-20 [facility] Comment on above: Result Comment: Canc elled via OM: Order cancelled - Patient discharged Performed By: #### L 100.0100, L500.2500 ####[facility] [address] [place], [address] Calcium Normal 7.6-11.0 [facility] Comment on above: Result Comment: Canc elled via OM: Order cancelled - Patient discharged Performed By: #### L 100.0100, L500.2500 ####[facility] [address] [place], [address] CL Normal 98-108 [facility] Comment on above: Result Comment: Canc elled via OM: Order cancelled - Patient discharged Performed By: #### L 100.0100, L500.2500 ####[facility] [address] [place], [address] CO2 Normal 21.0-32.0 [facility] Comment on above: Result Comment: Canc elled via OM: Order cancelled - Patient discharged Performed By: #### L 100.0100, L500.2500 ####[facility] [address] [place], [address] CREAT,SERUM Normal 0.70-1.20 [facility] Comment on above: Result Comment: Canc elled via OM: Order cancelled - Patient discharged Performed By: #### L 100.0100, L500.2500 ####[facility] [address] [place], [address] eGFR Normal >60 [facility] Comment on above: Result Comment: Canc elled via OM: Order cancelled - Patient discharged Performed By: #### L 100.0100, L500.2500 ####[facility] [address] [place], [address] GAP Normal 5-15 [facility] Comment on above: Result Comment: Canc elled via OM: Order cancelled - Patient discharged Performed By: #### L 100.0100, L500.2500 ####[facility] [address] [place], [address] GLU Normal 70-99 [facility] Comment on above: Result Comment: Canc elled via OM: Order cancelled - Patient discharged Performed By: #### L 100.0100, L500.2500 ####[facility] [address] [place], [address] Potassium Normal 3.3-5.1 [facility] Comment on above: Result Comment: Canc elled via OM: Order cancelled - Patient discharged Performed By: #### L 100.0100, L500.2500 ####[facility] [address] [place], [address] Basic Metabolic Profile (BMP) Normal 133-145 [facility] Comment on above: Result Comment: Canc elled via OM: Order cancelled - Patient discharged Performed By: #### L 100.0100, L500.2500 ####[facility] [address] [place], [address] CBC W/Diff, Automatedon 04-2 Absolute Neut Normal 2.0-7.7 [facility] Comment on above: Result Comment: Canc elled via OM: Order cancelled - Patient discharged Performed By: #### L 100.0100, L500.2500 ####[facility] [address] [place], [address] HCT Normal 37-47 [facility] Comment on above: Result Comment: Canc elled via OM: Order cancelled - Patient discharged Performed By: #### L 100.0100, L500.2500 ####[facility] [address] [place], [address] HGB Normal 12.0-15.0 [facility] Comment on above: Result Comment: Canc elled via OM: Order cancelled - Patient discharged Performed By: #### L 100.0100, L500.2500 ####[facility] [address] [place], [address] MCH Normal 27.0-32.0 [facility] Comment on above: Result Comment: Canc elled via OM: Order cancelled - Patient discharged Performed By: #### L 100.0100, L500.2500 ####[facility] [address] [place], [address] MCHC Normal 32-36 [facility] Comment on above: Result Comment: Canc elled via OM: Order cancelled - Patient discharged Performed By: #### L 100.0100, L500.2500 ####[facility] [address] [place], [address] MCV Normal 81-99 [facility] Comment on above: Result Comment: Canc elled via OM: Order cancelled - Patient discharged Performed By: #### L 100.0100, L500.2500 ####[facility] [address] [place], [address] NEUT% Normal 47-70 [facility] Comment on above: Result Comment: Canc elled via OM: Order cancelled - Patient discharged Performed By: #### L 100.0100, L500.2500 ####[facility] [address] [place], [address] PLT Normal 150-450 [facility] Comment on above: Result Comment: Canc elled via OM: Order cancelled - Patient discharged Performed By: #### L 100.0100, L500.2500 ####[facility] [address] [place], [address] RBC Normal 4.2-5.4 [facility] Comment on above: Result Comment: Canc elled via OM: Order cancelled - Patient discharged Performed By: #### L 100.0100, L500.2500 ####[facility] [address] [place], [address] RDW CV Normal 11.6-14.6 [facility] Comment on above: Result Comment: Canc elled via OM: Order cancelled - Patient discharged Performed By: #### L 100.0100, L500.2500 ####[facility] [address] [place], [address] RDW SD Normal 35.1-43.9 [facility] Comment on above: Result Comment: Canc elled via OM: Order cancelled - Patient discharged Performed By: #### L 100.0100, L500.2500 ####[facility] [address] [place], [address] WBC Normal 4.4-11.0 [facility] Comment on above: Result Comment: Canc elled via OM: Order cancelled - Patient discharged Performed By: #### L 100.0100, L500.2500 ####[facility] [address] [place], [address] Basic Metabolic Profile (BMP )on 03-09-2025 BUN Normal 4-19 [facility] Comment on above: Result Comment: Canc elled via OM: Order cancelled - Patient discharged Performed By: #### L 100.0100, L500.2500 ####[facility] [address] [place], [address] BUN/CRE Normal 10-20 [facility] Comment on above: Result Comment: Canc elled via OM: Order cancelled - Patient discharged Performed By: #### L 100.0100, L500.2500 ####[facility] [address] [place], [address] Calcium Normal 7.6-11.0 [facility] Comment on above: Result Comment: Canc elled via OM: Order cancelled - Patient discharged Performed By: #### L 100.0100, L500.2500 ####[facility] [address] [place], [address] CL Normal 98-108 [facility] Comment on above: Result Comment: Canc elled via OM: Order cancelled - Patient discharged Performed By: #### L 100.0100, L500.2500 ####[facility] [address] [place], [address] CO2 Normal 21.0-32.0 [facility] Comment on above: Result Comment: Canc elled via OM: Order cancelled - Patient discharged Performed By: #### L 100.0100, L500.2500 ####[facility] [address] [place], [address] CREAT,SERUM Normal 0.70-1.20 [facility] Comment on above: Result Comment: Canc elled via OM: Order cancelled - Patient discharged Performed By: #### L 100.0100, L500.2500 ####[facility] [address] [place], [address] eGFR Normal >60 [facility] Comment on above: Result Comment: Canc elled via OM: Order cancelled - Patient discharged Performed By: #### L 100.0100, L500.2500 ####[facility] [address] [place], [address] GAP Normal 5-15 [facility] Comment on above: Result Comment: Canc elled via OM: Order cancelled - Patient discharged Performed By: #### L 100.0100, L500.2500 ####[facility] [address] [place], [address] GLU Normal 70-99 [facility] Comment on above: Result Comment: Canc elled via OM: Order cancelled - Patient discharged Performed By: #### L 100.0100, L500.2500 ####[facility] [address] [place], [address] Potassium Normal 3.3-5.1 [facility] Comment on above: Result Comment: Canc elled via OM: Order cancelled - Patient discharged Performed By: #### L 100.0100, L500.2500 ####[facility] [address] [place], [address] Basic Metabolic Profile (BMP) Normal 133-145 [facility] Comment on above: Result Comment: Canc elled via OM: Order cancelled - Patient discharged Performed By: #### L 100.0100, L500.2500 ####[facility] [address] [place], [address] CBC W/Diff, Automatedon 04-2 Absolute Neut Normal 2.0-7.7 [facility] Comment on above: Result Comment: Canc elled via OM: Order cancelled - Patient discharged Performed By: #### L 100.0100, L500.2500 ####[facility] [address] [place], [address] HCT Normal 37-47 [facility] Comment on above: Result Comment: Canc elled via OM: Order cancelled - Patient discharged Performed By: #### L 100.0100, L500.2500 ####[facility] [address] [place], [address] HGB Normal 12.0-15.0 [facility] Comment on above: Result Comment: Canc elled via OM: Order cancelled - Patient discharged Performed By: #### L 100.0100, L500.2500 ####[facility] [address] [place], [address] MCH Normal 27.0-32.0 [facility] Comment on above: Result Comment: Canc elled via OM: Order cancelled - Patient discharged Performed By: #### L 100.0100, L500.2500 ####[facility] [address] [place], [address] MCHC Normal 32-36 [facility] Comment on above: Result Comment: Canc elled via OM: Order cancelled - Patient discharged Performed By: #### L 100.0100, L500.2500 ####[facility] [address] [place], [address] MCV Normal 81-99 [facility] Comment on above: Result Comment: Canc elled via OM: Order cancelled - Patient discharged Performed By: #### L 100.0100, L500.2500 ####[facility] [address] [place], [address] NEUT% Normal 47-70 [facility] Comment on above: Result Comment: Canc elled via OM: Order cancelled - Patient discharged Performed By: #### L 100.0100, L500.2500 ####[facility] [address] [place], [address] PLT Normal 150-450 [facility] Comment on above: Result Comment: Canc elled via OM: Order cancelled - Patient discharged Performed By: #### L 100.0100, L500.2500 ####[facility] [address] [place], [address] RBC Normal 4.2-5.4 [facility] Comment on above: Result Comment: Canc elled via OM: Order cancelled - Patient discharged Performed By: #### L 100.0100, L500.2500 ####[facility] [address] [place], [address] RDW CV Normal 11.6-14.6 [facility] Comment on above: Result Comment: Canc elled via OM: Order cancelled - Patient discharged Performed By: #### L 100.0100, L500.2500 ####[facility] [address] [place], [address] RDW SD Normal 35.1-43.9 [facility] Comment on above: Result Comment: Canc elled via OM: Order cancelled - Patient discharged Performed By: #### L 100.0100, L500.2500 ####[facility] [address] [place], [address] WBC Normal 4.4-11.0 [facility] Comment on above: Result Comment: Canc elled via OM: Order cancelled - Patient discharged Performed By: #### L 100.0100, L500.2500 ####[facility] [address] [place], [address] Venous Duplex US, Unilateral on 03-09-2025 Venous Duplex US, Unilateral Normal [facility] Venous duplex ultrasound rep ortOrdered By: Vadim Estrada on 03-09-2025 US Vein [facility] [address] [place] [address] Venous Duplex US, Unilateral 03/09/25 0921 MR#: [id number] Acct: [id number] Name: MICHAELA BRANDT Rep #:[id number] : 1940 84 From: Vadim Laws Attending Dr: Dr. 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 Acute deep vein thrombosis is noted in the Per V. It is dilated andNONCOMPRESSIBLE. VL/Venous Duplex US, Unilateral Interpretation Summary Acute deep vein thrombosis is noted in the left peroneal vein. Ordering Physician: Garfield Yo Chi Referring Physician: Anaid Santiago Performed By: Raul Katz RVT 03/09/251849 Date _ Vadim Estrada MD CC: Dr. Anaid Santiago MD; Dr. 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, [address] BUN/CRE Normal 10-20 [facility] Comment on above: Result Comment: Canc elled via OM: Order cancelled - Patient discharged Performed By: #### L 100.0100, L500.2500 ####[facility] [address] [place], [address] Calcium Normal 7.6-11.0 [facility] Comment on above: Result Comment: Canc elled via OM: Order cancelled - Patient discharged Performed By: #### L 100.0100, L500.2500 ####[facility] [address] [place], [address] CL Normal 98-108 [facility] Comment on above: Result Comment: Canc elled via OM: Order cancelled - Patient discharged Performed By: #### L 100.0100, L500.2500 ####[facility] [address] [place], [address] CO2 Normal 21.0-32.0 [facility] Comment on above: Result Comment: Canc elled via OM: Order cancelled - Patient discharged Performed By: #### L 100.0100, L500.2500 ####[facility] [address] [place], [address] CREAT,SERUM Normal 0.70-1.20 [facility] Comment on above: Result Comment: Canc elled via OM: Order cancelled - Patient discharged Performed By: #### L 100.0100, L500.2500 ####[facility] [address] [place], [address] eGFR Normal >60 [facility] Comment on above: Result Comment: Canc elled via OM: Order cancelled - Patient discharged Performed By: #### L 100.0100, L500.2500 ####[facility] [address] [place], [address] GAP Normal 5-15 [facility] Comment on above: Result Comment: Canc elled via OM: Order cancelled - Patient discharged Performed By: #### L 100.0100, L500.2500 ####[facility] [address] [place], [address] GLU Normal 70-99 [facility] Comment on above: Result Comment: Canc elled via OM: Order cancelled - Patient discharged Performed By: #### L 100.0100, L500.2500 ####[facility] [address] [place], [address] Potassium Normal 3.3-5.1 [facility] Comment on above: Result Comment: Canc elled via OM: Order cancelled - Patient discharged Performed By: #### L 100.0100, L500.2500 ####[facility] [address] [place], [address] Basic Metabolic Profile (BMP) Normal 133-145 [facility] Comment on above: Result Comment: Canc elled via OM: Order cancelled - Patient discharged Performed By: #### L 100.0100, L500.2500 ####[facility] [address] [place], [address] CBC W/Diff, Automatedon 04-2 0-202 Absolute Neut Normal 2.0-7.7 [facility] Comment on above: Result Comment: Canc elled via OM: Order cancelled - Patient discharged Performed By: #### L 100.0100, L500.2500 ####[facility] [address] [place], [address] HCT Normal 37-47 [facility] Comment on above: Result Comment: Canc elled via OM: Order cancelled - Patient discharged Performed By: #### L 100.0100, L500.2500 ####[facility] [address] [place], [address] HGB Normal 12.0-15.0 [facility] Comment on above: Result Comment: Canc elled via OM: Order cancelled - Patient discharged Performed By: #### L 100.0100, L500.2500 ####[facility] [address] [place], [address] MCH Normal 27.0-32.0 [facility] Comment on above: Result Comment: Canc elled via OM: Order cancelled - Patient discharged Performed By: #### L 100.0100, L500.2500 ####[facility] [address] [place], [address] MCHC Normal 32-36 [facility] Comment on above: Result Comment: Canc elled via OM: Order cancelled - Patient discharged Performed By: #### L 100.0100, L500.2500 ####[facility] [address] [place], [address] MCV Normal 81-99 [facility] Comment on above: Result Comment: Canc elled via OM: Order cancelled - Patient discharged Performed By: #### L 100.0100, L500.2500 ####[facility] [address] [place], [address] NEUT% Normal 47-70 [facility] Comment on above: Result Comment: Canc elled via OM: Order cancelled - Patient discharged Performed By: #### L 100.0100, L500.2500 ####[facility] [address] [place], [address] PLT Normal 150-450 [facility] Comment on above: Result Comment: Canc elled via OM: Order cancelled - Patient discharged Performed By: #### L 100.0100, L500.2500 ####[facility] [address] [place], [address] RBC Normal 4.2-5.4 [facility] Comment on above: Result Comment: Canc elled via OM: Order cancelled - Patient discharged Performed By: #### L 100.0100, L500.2500 ####[facility] [address] [place], [address] RDW CV Normal 11.6-14.6 [facility] Comment on above: Result Comment: Canc elled via OM: Order cancelled - Patient discharged Performed By: #### L 100.0100, L500.2500 ####[facility] [address] [place], [address] RDW SD Normal 35.1-43.9 [facility] Comment on above: Result Comment: Canc elled via OM: Order cancelled - Patient discharged Performed By: #### L 100.0100, L500.2500 ####[facility] [address] [place], [address] WBC Normal 4.4-11.0 [facility] Comment on above: Result Comment: Canc elled via OM: Order cancelled - Patient discharged Performed By: #### L 100.0100, L500.2500 ####[facility] [address] [place], [address] Basic Metabolic Profile (BMP )on 03-07-2025 BUN Normal -19 [facility] Comment on above: Result Comment: Canc elled via OM: Order cancelled - Patient discharged Performed By: #### L 100.0100, L500.2500 ####[facility] [address] [place], [address] BUN/CRE Normal 10-20 [facility] Comment on above: Result Comment: Canc elled via OM: Order cancelled - Patient discharged Performed By: #### L 100.0100, L500.2500 ####[facility] [address] [place], [address] Calcium Normal 7.6-11.0 [facility] Comment on above: Result Comment: Canc elled via OM: Order cancelled - Patient discharged Performed By: #### L 100.0100, L500.2500 ####[facility] [address] [place], [address] CL Normal 98-108 [facility] Comment on above: Result Comment: Canc elled via OM: Order cancelled - Patient discharged Performed By: #### L 100.0100, L500.2500 ####[facility] [address] [place], [address] CO2 Normal 21.0-32.0 [facility] Comment on above: Result Comment: Canc elled via OM: Order cancelled - Patient discharged Performed By: #### L 100.0100, L500.2500 ####[facility] [address] [place], [address] CREAT,SERUM Normal 0.70-1.20 [facility] Comment on above: Result Comment: Canc elled via OM: Order cancelled - Patient discharged Performed By: #### L 100.0100, L500.2500 ####[facility] [address] [place], [address] eGFR Normal >60 [facility] Comment on above: Result Comment: Canc elled via OM: Order cancelled - Patient discharged Performed By: #### L 100.0100, L500.2500 ####[facility] [address] [place], [address] GAP Normal 5-15 [facility] Comment on above: Result Comment: Canc elled via OM: Order cancelled - Patient discharged Performed By: #### L 100.0100, L500.2500 ####[facility] [address] [place], [address] GLU Normal 70-99 [facility] Comment on above: Result Comment: Canc elled via OM: Order cancelled - Patient discharged Performed By: #### L 100.0100, L500.2500 ####[facility] [address] [place], [address] Potassium Normal 3.3-5.1 [facility] Comment on above: Result Comment: Canc elled via OM: Order cancelled - Patient discharged Performed By: #### L 100.0100, L500.2500 ####[facility] [address] [place], [address] Basic Metabolic Profile (BMP) Normal 133-145 [facility] Comment on above: Result Comment: Canc elled via OM: Order cancelled - Patient discharged Performed By: #### L 100.0100, L500.2500 ####[facility] [address] [place], [address] CBC W/Diff, Automatedon 04- Absolute Neut Normal 2.0-7.7 [facility] Comment on above: Result Comment: Canc elled via OM: Order cancelled - Patient discharged Performed By: #### L 100.0100, L500.2500 ####[facility] [address] [place], [address] HCT Normal 37-47 [facility] Comment on above: Result Comment: Canc elled via OM: Order cancelled - Patient discharged Performed By: #### L 100.0100, L500.2500 ####[facility] [address] [place], [address] HGB Normal 12.0-15.0 [facility] Comment on above: Result Comment: Canc elled via OM: Order cancelled - Patient discharged Performed By: #### L 100.0100, L500.2500 ####[facility] [address] [place], [address] MCH Normal 27.0-32.0 [facility] Comment on above: Result Comment: Canc elled via OM: Order cancelled - Patient discharged Performed By: #### L 100.0100, L500.2500 ####[facility] [address] [place], [address] MCHC Normal 32-36 [facility] Comment on above: Result Comment: Canc elled via OM: Order cancelled - Patient discharged Performed By: #### L 100.0100, L500.2500 ####[facility] [address] [place], [address] MCV Normal 81-99 [facility] Comment on above: Result Comment: Canc elled via OM: Order cancelled - Patient discharged Performed By: #### L 100.0100, L500.2500 ####[facility] [address] [place], [address] NEUT% Normal 47-70 [facility] Comment on above: Result Comment: Canc elled via OM: Order cancelled - Patient discharged Performed By: #### L 100.0100, L500.2500 ####[facility] [address] [place], [address] PLT Normal 150-450 [facility] Comment on above: Result Comment: Canc elled via OM: Order cancelled - Patient discharged Performed By: #### L 100.0100, L500.2500 ####[facility] [address] [place], [address] RBC Normal 4.2-5.4 [facility] Comment on above: Result Comment: Canc elled via OM: Order cancelled - Patient discharged Performed By: #### L 100.0100, L500.2500 ####[facility] [address] [place], [address] RDW CV Normal 11.6-14.6 [facility] Comment on above: Result Comment: Canc elled via OM: Order cancelled - Patient discharged Performed By: #### L 100.0100, L500.2500 ####[facility] [address] [place], [address] RDW SD Normal 35.1-43.9 [facility] Comment on above: Result Comment: Canc elled via OM: Order cancelled - Patient discharged Performed By: #### L 100.0100, L500.2500 ####[facility] [address] [place], [address] WBC Normal 4.4-11.0 [facility] Comment on above: Result Comment: Canc elled via OM: Order cancelled - Patient discharged Performed By: #### L 100.0100, L500.2500 ####[facility] [address] [place], [address] HH, Hemoglobin AND Hematocri ton 03-07-2025 Hematocrit (Bld) [Volume fraction] 26.2 % Low 37-47 [facility] Comment on above: Performed By: #### L 100.0600 ####[facility] [address] [place], [address] Hemoglobin (Bld) [Mass/Vol] 9.0 g/dL Low 12.0-15.0 [facility] Comment on above: Performed By: #### L 100.0600 ####[facility] [address] [place], [address] Hematocrit Auto (Bld) [Volum e fraction]Ordered By: Garfield Yo on 03-07-2025 Hematocrit (Bld) [Volume fraction] 26.2 % Low 37-47 [facility] Hemoglobin measurementOrdere d By: Garfield Yo on 03-07-2025 Hemoglobin (Bld) [Mass/Vol] 9.0 g/dL Low 12.0-15.0 [facility] Basic Metabolic Profile (BMP )on 03-06-2025 BUN Normal -19 [facility] Comment on above: Result Comment: Canc elled via OM: Order cancelled - Patient discharged Performed By: #### L 500.2500, L100.0100 ####[facility] [address] [place], [address] BUN/CRE Normal 10-20 [facility] Comment on above: Result Comment: Canc elled via OM: Order cancelled - Patient discharged Performed By: #### L 500.2500, L100.0100 ####[facility] [address] [place], [address] Calcium Normal 7.6-11.0 [facility] Comment on above: Result Comment: Canc elled via OM: Order cancelled - Patient discharged Performed By: #### L 500.2500, L100.0100 ####[facility] [address] [place], [address] CL Normal 98-108 [facility] Comment on above: Result Comment: Canc elled via OM: Order cancelled - Patient discharged Performed By: #### L 500.2500, L100.0100 ####[facility] [address] [place], [address] CO2 Normal 21.0-32.0 [facility] Comment on above: Result Comment: Canc elled via OM: Order cancelled - Patient discharged Performed By: #### L 500.2500, L100.0100 ####[facility] [address] [place], [address] CREAT,SERUM Normal 0.70-1.20 [facility] Comment on above: Result Comment: Canc elled via OM: Order cancelled - Patient discharged Performed By: #### L 500.2500, L100.0100 ####[facility] [address] [place], [address] eGFR Normal >60 [facility] Comment on above: Result Comment: Canc elled via OM: Order cancelled - Patient discharged Performed By: #### L 500.2500, L100.0100 ####[facility] [address] [place], [address] GAP Normal 5-15 [facility] Comment on above: Result Comment: Canc elled via OM: Order cancelled - Patient discharged Performed By: #### L 500.2500, L100.0100 ####[facility] [address] [place], [address] GLU Normal 70-99 [facility] Comment on above: Result Comment: Canc elled via OM: Order cancelled - Patient discharged Performed By: #### L 500.2500, L100.0100 ####[facility] [address] [place], [address] Potassium Normal 3.3-5.1 [facility] Comment on above: Result Comment: Canc elled via OM: Order cancelled - Patient discharged Performed By: #### L 500.2500, L100.0100 ####[facility] [address] [place], [address] Basic Metabolic Profile (BMP) Normal 133-145 [facility] Comment on above: Result Comment: Canc elled via OM: Order cancelled - Patient discharged Performed By: #### L 500.2500, L100.0100 ####[facility] [address] [place], [address] CBC W/Diff, Automatedon 02-17 Absolute Neut Normal 2.0-7.7 [facility] Comment on above: Result Comment: Canc elled via OM: Order cancelled - Patient discharged Performed By: #### L 500.2500, L100.0100 ####[facility] [address] [place], [address] HCT Normal 37-47 [facility] Comment on above: Result Comment: Canc elled via OM: Order cancelled - Patient discharged Performed By: #### L 500.2500, L100.0100 ####[facility] [address] [place], [address] HGB Normal 12.0-15.0 [facility] Comment on above: Result Comment: Canc elled via OM: Order cancelled - Patient discharged Performed By: #### L 500.2500, L100.0100 ####[facility] [address] [place], [address] MCH Normal 27.0-32.0 [facility] Comment on above: Result Comment: Canc elled via OM: Order cancelled - Patient discharged Performed By: #### L 500.2500, L100.0100 ####[facility] [address] [place], [address] MCHC Normal 32-36 [facility] Comment on above: Result Comment: Canc elled via OM: Order cancelled - Patient discharged Performed By: #### L 500.2500, L100.0100 ####[facility] [address] [place], [address] MCV Normal 81-99 [facility] Comment on above: Result Comment: Canc elled via OM: Order cancelled - Patient discharged Performed By: #### L 500.2500, L100.0100 ####[facility] [address] [place], [address] NEUT% Normal 47-70 [facility] Comment on above: Result Comment: Canc elled via OM: Order cancelled - Patient discharged Performed By: #### L 500.2500, L100.0100 ####[facility] [address] [place], [address] PLT Normal 150-450 [facility] Comment on above: Result Comment: Canc elled via OM: Order cancelled - Patient discharged Performed By: #### L 500.2500, L100.0100 ####[facility] [address] [place], [address] RBC Normal 4.2-5.4 [facility] Comment on above: Result Comment: Canc elled via OM: Order cancelled - Patient discharged Performed By: #### L 500.2500, L100.0100 ####[facility] [address] [place], [address] RDW CV Normal 11.6-14.6 [facility] Comment on above: Result Comment: Canc elled via OM: Order cancelled - Patient discharged Performed By: #### L 500.2500, L100.0100 ####[facility] [address] [place], [address] RDW SD Normal 35.1-43.9 [facility] Comment on above: Result Comment: Canc elled via OM: Order cancelled - Patient discharged Performed By: #### L 500.2500, L100.0100 ####[facility] [address] [place], [address] WBC Normal 4.4-11.0 [facility] Comment on above: Result Comment: Canc elled via OM: Order cancelled - Patient discharged Performed By: #### L 500.2500, L100.0100 ####[facility] [address] [place], [address] Knee 1 or 2 Viewson 03-06-20 25 Knee 1 or 2 Views Normal [facility] Absolute neutrophil countOrd ered By: Garfield Yo on 03-05-2025 Neutrophils (Bld) [#/Vol] 7.3 10*3/uL 2.0-7.7 [facility] Anion gap in Serum or Plasma Ordered By: Garfield Yo on 03-05-2025 Anion gap [Moles/Vol] 10 mmol/L - [facility] BUN/creatinine ratioOrdered By: Garfield Yo on 03-05-2025 Urea nitrogen/Creatinine [Mass ratio] 17.0 mg/mg - [facility] Basic Metabolic Profile (BMP )on 03-05-2025 BUN/CRE 17.0 RATIO Normal - [facility] Comment on above: Performed By: #### L 500.2500, L100.0100 ####[facility] [address] [place], [address] Calcium [Mass/Vol] 8.5 mg/dL Normal 7.6-11.0 [facility] Comment on above: Performed By: #### L 500.2500, L100.0100 ####[facility] [address] [place], [address] Chloride [Moles/Vol] 102 mmol/L Normal 98-108 [facility] Comment on above: Performed By: #### L 500.2500, L100.0100 ####[facility] [address] [place], [address] CO2 [Moles/Vol] 27.5 mmol/L Normal 21.0-32.0 [facility] Comment on above: Performed By: #### L 500.2500, L100.0100 ####[facility] [address] [place], [address] Creatinine [Mass/Vol] 0.78 mg/dL Normal 0.70-1.20 [facility] Comment on above: Performed By: #### L 500.2500, L100.0100 ####[facility] [address] [place], [address] ECRCL 41.90 ml/min Low 50-250 [facility] Comment on above: Performed By: #### L 500.2500, L100.0100 ####[facility] [address] [place], [address] GAP 10 Normal 5-15 [facility] Comment on above: Performed By: #### L 500.2500, L100.0100 ####[facility] [address] [place], [address] GFR/1.73 sq M.predicted among non-blacks MDRD (S/P/Bld) [Vol rate/Area] 74 mL/min/{1.73_m2} Normal >60 [facility] Comment on above: Result Comment: mL/m in/1.73m2 CKD-EPI Creatinine Equation (2020) Performed By: #### L 500.2500, L100.0100 ####[facility] [address] [place], [address] Glucose [Mass/Vol] 100 mg/dL High 70-99 [facility] Comment on above: Performed By: #### L 500.2500, L100.0100 ####[facility] [address] [place], [address] Potassium [Moles/Vol] 3.3 mmol/L Normal 3.3-5.1 [facility] Comment on above: Performed By: #### L 500.2500, L100.0100 ####[facility] [address] [place], [address] Sodium [Moles/Vol] 140 mmol/L Normal 133-145 [facility] Comment on above: Performed By: #### L 500.2500, L100.0100 ####[facility] [address] [place], [address] Urea nitrogen [Mass/Vol] 13 mg/dL Normal 4-19 [facility] Comment on above: Performed By: #### L 500.2500, L100.0100 ####[facility] [address] [place], [address] BUN Normal 4-19 [facility] Comment on above: Result Comment: Canc elled via OM: Order cancelled - Patient discharged Performed By: #### L 500.2500, L100.0100 ####[facility] [address] [place], [address] BUN/CRE Normal 10-20 [facility] Comment on above: Result Comment: Canc elled via OM: Order cancelled - Patient discharged Performed By: #### L 500.2500, L100.0100 ####[facility] [address] [place], [address] Calcium Normal 7.6-11.0 [facility] Comment on above: Result Comment: Canc elled via OM: Order cancelled - Patient discharged Performed By: #### L 500.2500, L100.0100 ####[facility] [address] [place], [address] CL Normal 98-108 [facility] Comment on above: Result Comment: Canc elled via OM: Order cancelled - Patient discharged Performed By: #### L 500.2500, L100.0100 ####[facility] [address] [place], [address] CO2 Normal 21.0-32.0 [facility] Comment on above: Result Comment: Canc elled via OM: Order cancelled - Patient discharged Performed By: #### L 500.2500, L100.0100 ####[facility] [address] [place], [address] CREAT,SERUM Normal 0.70-1.20 [facility] Comment on above: Result Comment: Canc elled via OM: Order cancelled - Patient discharged Performed By: #### L 500.2500, L100.0100 ####[facility] [address] [place], [address] eGFR Normal >60 [facility] Comment on above: Result Comment: Canc elled via OM: Order cancelled - Patient discharged Performed By: #### L 500.2500, L100.0100 ####[facility] [address] [place], [address] GAP Normal 5-15 [facility] Comment on above: Result Comment: Canc elled via OM: Order cancelled - Patient discharged Performed By: #### L 500.2500, L100.0100 ####[facility] [address] [place], [address] GLU Normal 70-99 [facility] Comment on above: Result Comment: Canc elled via OM: Order cancelled - Patient discharged Performed By: #### L 500.2500, L100.0100 ####[facility] [address] [place], [address] Potassium Normal 3.3-5.1 [facility] Comment on above: Result Comment: Canc elled via OM: Order cancelled - Patient discharged Performed By: #### L 500.2500, L100.0100 ####[facility] [address] [place], [address] Basic Metabolic Profile (BMP) Normal 133-145 [facility] Comment on above: Result Comment: Canc elled via OM: Order cancelled - Patient discharged Performed By: #### L 500.2500, L100.0100 ####[facility] [address] [place], [address] Basophil percentageOrdered B y: Garfield Yo on 03-05-2025 Basophils/100 WBC (Bld) 0.5 % 0-1 [facility] CBC W/Diff, Automatedon 02-17 Absolute Lymph 1.57 X10 3/uL Normal 0.83-4.51 [facility] Comment on above: Performed By: #### L 500.2500, L100.0100 ####[facility] [address] [place], [address] Absolute Neut 7.3 X10 3/uL Normal 2.0-7.7 [facility] Comment on above: Performed By: #### L 500.2500, L100.0100 ####[facility] [address] [place], [address] Basophils/100 WBC (Bld) 0.5 % Normal 0-1 [facility] Comment on above: Performed By: #### L 500.2500, L100.0100 ####[facility] [address] [place], [address] Eosinophils/100 WBC (Bld) 3.5 % Normal 0-5 [facility] Comment on above: Performed By: #### L 500.2500, L100.0100 ####[facility] [address] [place], [address] Erythrocyte distribution width (RBC) [Ratio] 13.2 % Normal 11.6-14.6 [facility] Comment on above: Performed By: #### L 500.2500, L100.0100 ####[facility] [address] [place], [address] Hematocrit (Bld) [Volume fraction] 25.8 % Low 37-47 [facility] Comment on above: Performed By: #### L 500.2500, L100.0100 ####[facility] [address] [place], [address] Hemoglobin (Bld) [Mass/Vol] 9.0 g/dL Low 12.0-15.0 [facility] Comment on above: Performed By: #### L 500.2500, L100.0100 ####[facility] [address] [place], [address] IG% 1.100 High 0.0-0.9 [facility] Comment on above: Result Comment: IG% - Immature Granulocytes (promyelocytes, myelocytes andmetamyelocytes) > 1% indicates that a LEFT SHIFT is Present. Performed By: #### L 500.2500, L100.0100 ####[facility] [address] [place], [address] Lymphocytes/100 WBC (Bld) 15.9 % Low 19-41 [facility] Comment on above: Performed By: #### L 500.2500, L100.0100 ####[facility] [address] [place], [address] MCH (RBC) [Entitic mass] 30.7 pg Normal 27.0-32.0 [facility] Comment on above: Performed By: #### L 500.2500, L100.0100 ####[facility] [address] [place], [address] MCHC (RBC) [Mass/Vol] 34.9 g/dL Normal 32-36 [facility] Comment on above: Performed By: #### L 500.2500, L100.0100 ####[facility] [address] [place], [address] MCV (RBC) [Entitic vol] 88.1 fL Normal 81-99 [facility] Comment on above: Performed By: #### L 500.2500, L100.0100 ####[facility] [address] [place], [address] Monocytes/100 WBC (Bld) 5.6 % Normal 0-10 [facility] Comment on above: Performed By: #### L 500.2500, L100.0100 ####[facility] [address] [place], [address] Neutrophils/100 WBC (Bld) 73.4 % High 47-70 [facility] Comment on above: Performed By: #### L 500.2500, L100.0100 ####[facility] [address] [place], [address] Nucleated RBC (Bld) [#/Vol] 0 10*3/uL Normal 0-5 [facility] Comment on above: Performed By: #### L 500.2500, L100.0100 ####[facility] [address] [place], [address] Platelet mean volume (Bld) [Entitic vol] 10.3 fL Normal 6.2-12.0 [facility] Comment on above: Performed By: #### L 500.2500, L100.0100 ####[facility] [address] [place], [address] Platelets (Bld) [#/Vol] 195 10*3/uL Normal 150-450 [facility] Comment on above: Performed By: #### L 500.2500, L100.0100 ####[facility] [address] [place], [address] RBC (Bld) [#/Vol] 2.93 10*6/uL Low 4.2-5.4 [facility] Comment on above: Performed By: #### L 500.2500, L100.0100 ####[facility] [address] [place], [address] RDW SD 42.1 fl Normal 35.1-43.9 [facility] Comment on above: Performed By: #### L 500.2500, L100.0100 ####[facility] [address] [place], [address] WBC (Bld) [#/Vol] 9.9 10*3/uL Normal 4.4-11.0 [facility] Comment on above: Performed By: #### L 500.2500, L100.0100 ####[facility] [address] [place], [address] Absolute Neut Normal 2.0-7.7 [facility] Comment on above: Result Comment: Canc elled via OM: Order cancelled - Patient discharged Performed By: #### L 500.2500, L100.0100 ####[facility] [address] [place], [address] HCT Normal 37-47 [facility] Comment on above: Result Comment: Canc elled via OM: Order cancelled - Patient discharged Performed By: #### L 500.2500, L100.0100 ####[facility] [address] [place], [address] HGB Normal 12.0-15.0 [facility] Comment on above: Result Comment: Canc elled via OM: Order cancelled - Patient discharged Performed By: #### L 500.2500, L100.0100 ####[facility] [address] [place], [address] MCH Normal 27.0-32.0 [facility] Comment on above: Result Comment: Canc elled via OM: Order cancelled - Patient discharged Performed By: #### L 500.2500, L100.0100 ####[facility] [address] [place], [address] MCHC Normal 32-36 [facility] Comment on above: Result Comment: Canc elled via OM: Order cancelled - Patient discharged Performed By: #### L 500.2500, L100.0100 ####[facility] [address] [place], [address] MCV Normal 81-99 [facility] Comment on above: Result Comment: Canc elled via OM: Order cancelled - Patient discharged Performed By: #### L 500.2500, L100.0100 ####[facility] [address] [place], [address] NEUT% Normal 47-70 [facility] Comment on above: Result Comment: Canc elled via OM: Order cancelled - Patient discharged Performed By: #### L 500.2500, L100.0100 ####[facility] [address] [place], [address] PLT Normal 150-450 [facility] Comment on above: Result Comment: Canc elled via OM: Order cancelled - Patient discharged Performed By: #### L 500.2500, L100.0100 ####[facility] [address] [place], [address] RBC Normal 4.2-5.4 [facility] Comment on above: Result Comment: Canc elled via OM: Order cancelled - Patient discharged Performed By: #### L 500.2500, L100.0100 ####[facility] [address] [place], [address] RDW CV Normal 11.6-14.6 [facility] Comment on above: Result Comment: Canc elled via OM: Order cancelled - Patient discharged Performed By: #### L 500.2500, L100.0100 ####[facility] [address] [place], [address] RDW SD Normal 35.1-43.9 [facility] Comment on above: Result Comment: Canc elled via OM: Order cancelled - Patient discharged Performed By: #### L 500.2500, L100.0100 ####[facility] [address] [place], [address] WBC Normal 4.4-11.0 [facility] Comment on above: Result Comment: Canc elled via OM: Order cancelled - Patient discharged Performed By: #### L 500.2500, L100.0100 ####[facility] [address] [place], [address] Carbon dioxide, total [Moles /volume] in Central venous bloodOrdered By: Garfield Yo on 03-05-2025 CO2 [Moles/Vol] 27.5 mmol/L 21.0-32.0 [facility] Chloride assayOrdered By: Kristopher Yo on 03-05-2025 Chloride [Moles/Vol] 102 mmol/L 98-108 [facility] Eosinophil percentageOrdered By: Garfield Yo on 03-05-2025 Eosinophils/100 WBC (Bld) 3.5 % 0-5 [facility] Erythrocyte distribution wid th (RBC) [Ratio]Ordered By: Garfield Yo on 03-05-2025 Erythrocyte distribution width (RBC) [Entitic vol] 42.1 fL 35.1-43.9 [facility] Erythrocyte distribution wid th ratioOrdered By: Garfield Yo on 03-05-2025 Erythrocyte distribution width (RBC) [Ratio] 13.2 % 11.6-14.6 [facility] Estimation of creatinine winston aranceOrdered By: Garfield Yo on 03-05-2025 Estimated Creatinine Clearance Calc 41.90 ml/min Low 50-250 [facility] GFR/1.73 sq M.predicted arti g non-blacks MDRD (S/P/Bld) [Vol rate/Area]Ordered By: Garfield Yo on 03-05-2025 Estimated GFR (MDRD) Non-Af Amer 74 >60 [facility] Comment on above: mL/min/1.73m2 CKD-EP I Creatinine Equation (2020) Immature granulocytes/100 WB C Auto (Bld)Ordered By: Garfield Yo on 03-05-2025 Immature granulocytes/100 WBC (Bld) 1.100 % High 0.0-0.9 [facility] Comment on above: IG% - Immature Granu locytes (promyelocytes, myelocytes and metamyelocytes) > 1% indicates that a LEFT SHIFT is Present. Lymphocytes Auto (Unsp spec) [#/Vol]Ordered By: Garfield Yo on 03-05-2025 Lymphocytes (Bld) [#/Vol] 1.57 10*3/uL 0.83-4.51 [facility] Lymphocytes/100 WBC Auto (Un sp spec)Ordered By: Garfield Yo on 03-05-2025 Lymphocytes/100 WBC (Bld) 15.9 % Low 19-41 [facility] MCV (mean corpuscular volume ) determinationOrdered By: Garfield Yo on 03-05-2025 MCV (RBC) [Entitic vol] 88.1 fL 81-99 [facility] Mean corpuscular hemoglobin (MCH) determinationOrdered By: Garfield Yo on 03-05-2025 MCH (RBC) [Entitic mass] 30.7 pg 27.0-32.0 [facility] Mean corpuscular hemoglobin concentration (MCHC) determinationOrdered By: Garfield Yo on 03-05-2025 MCHC (RBC) [Mass/Vol] 34.9 g/dL 32-36 [facility] Mean platelet volume determi nationOrdered By: Garfield Yo on 03-05-2025 Platelet mean volume (Bld) [Entitic vol] 10.3 fL 6.2-12.0 [facility] Monocyte percentageOrdered B y: Garfield Yo on 03-05-2025 Monocytes/100 WBC (Bld) 5.6 % 0-10 [facility] Neutrophil percentageOrdered By: Garfield Yo on 03-05-2025 Neutrophils/100 WBC (Bld) 73.4 % High 47-70 [facility] Nucleated red blood cell per centageOrdered By: Garfield Yo on 03-05-2025 Nucleated RBC/100 WBC (Bld) [Ratio] 0 % 0-5 [facility] Platelet countOrdered By: Kristopher Yo on 03-05-2025 Platelets (Bld) [#/Vol] 195 10*3/uL 150-450 [facility] Potassium (Unsp spec) [Mass/ Vol]Ordered By: Garfield Yo on 03-05-2025 Potassium [Moles/Vol] 3.3 mmol/L 3.3-5.1 [facility] RBC Auto (Bld) [#/Vol]Ordere d By: Garfield Yo on 03-05-2025 RBC (Bld) [#/Vol] 2.93 10*6/uL Low 4.2-5.4 [facility] Serum creatinine measurement (mass/volume)Ordered By: Garfield Yo on 03-05-2025 Creatinine [Mass/Vol] 0.78 mg/dL 0.70-1.20 [facility] Serum glucose measurement (m ass/volume)Ordered By: Garfield Yo on 03-05-2025 Glucose [Mass/Vol] 100 mg/dL High 70-99 [facility] Serum or plasma calcium thomas urement (mass/volume)Ordered By: Garfield Yo on 03-05-2025 Calcium [Mass/Vol] 8.5 mg/dL 7.6-11.0 [facility] Serum or plasma urea nitroge n measurement (mass/volume)Ordered By: Garfield Yo on 03-05-2025 Urea nitrogen [Mass/Vol] 13 mg/dL 4-19 [facility] Sodium levelOrdered By: Garfield Yo on 03-05-2025 Sodium [Moles/Vol] 140 mmol/L 133-145 [facility] White blood cell (WBC) count Ordered By: Garfield Yo on 03-05-2025 WBC (Bld) [#/Vol] 9.9 10*3/uL 4.4-11.0 [facility] Absolute lymphocyte countOrd ered By: Allison Tran on 03-04-2025 Lymphocytes Auto (Unsp spec) [#/Vol] 1.35 10*3/uL 0.83-4.51 [facility] Absolute neutrophil countOrd ered By: Allison Tran on 03-04-2025 Neutrophils (Bld) [#/Vol] 9.0 10*3/uL High 2.0-7.7 [facility] Anion gap in Serum or Plasma Ordered By: Allison Tran on 03-04-2025 Anion gap [Moles/Vol] 10 mmol/L 5-15 [facility] Automated lymphocyte count a s percentage of total leukocytesOrdered By: Allison Tran on 03-04-2025 Lymphocytes/100 WBC Auto (Unsp spec) 11.6 % Low 19-41 [facility] BUN/creatinine ratioOrdered By: Allison Tran on 03-04-2025 Urea nitrogen/Creatinine [Mass ratio] 18.5 mg/mg 10-20 [facility] Basic Metabolic Profile (BMP )on 03-04-2025 BUN/CRE 18.5 RATIO Normal 10-20 [facility] Comment on above: Performed By: #### L 100.0100, L500.2500 ####[facility] [address] [place], [address] Calcium [Mass/Vol] 8.4 mg/dL Normal 7.6-11.0 [facility] Comment on above: Performed By: #### L 100.0100, L500.2500 ####[facility] [address] [place], [address] Chloride [Moles/Vol] 103 mmol/L Normal 98-108 [facility] Comment on above: Performed By: #### L 100.0100, L500.2500 ####[facility] [address] [place], [address] CO2 [Moles/Vol] 26.0 mmol/L Normal 21.0-32.0 [facility] Comment on above: Performed By: #### L 100.0100, L500.2500 ####[facility] [address] [place], [address] Creatinine [Mass/Vol] 0.76 mg/dL Normal 0.70-1.20 [facility] Comment on above: Performed By: #### L 100.0100, L500.2500 ####[facility] [address] [place], [address] ECRCL 41.63 ml/min Low 50-250 [facility] Comment on above: Performed By: #### L 100.0100, L500.2500 ####[facility] [address] [place], [address] GAP 10 Normal 5-15 [facility] Comment on above: Performed By: #### L 100.0100, L500.2500 ####[facility] [address] [place], [address] GFR/1.73 sq M.predicted among non-blacks MDRD (S/P/Bld) [Vol rate/Area] 77 mL/min/{1.73_m2} Normal >60 [facility] Comment on above: Result Comment: mL/m in/1.73m2 CKD-EPI Creatinine Equation (2020) Performed By: #### L 100.0100, L500.2500 ####[facility] [address] [place], [address] Glucose [Mass/Vol] 112 mg/dL High 70-99 [facility] Comment on above: Performed By: #### L 100.0100, L500.2500 ####[facility] [address] [place], [address] Potassium [Moles/Vol] 3.7 mmol/L Normal 3.3-5.1 [facility] Comment on above: Performed By: #### L 100.0100, L500.2500 ####[facility] [address] [place], [address] Sodium [Moles/Vol] 139 mmol/L Normal 133-145 [facility] Comment on above: Performed By: #### L 100.0100, L500.2500 ####[facility] [address] [place], [address] Urea nitrogen [Mass/Vol] 14 mg/dL Normal 4-19 [facility] Comment on above: Performed By: #### L 100.0100, L500.2500 ####[facility] [address] [place], [address] Basophil percentageOrdered B y: Allison Tran on 03-04-2025 Basophils/100 WBC (Bld) 0.6 % 0-1 [facility] CBC W/Diff, Automatedon 02-17 Absolute Lymph 1.35 X10 3/uL Normal 0.83-4.51 [facility] Comment on above: Performed By: #### L 100.0100, L500.2500 ####[facility] [address] [place], [address] Absolute Neut 9.0 X10 3/uL High 2.0-7.7 [facility] Comment on above: Performed By: #### L 100.0100, L500.2500 ####[facility] [address] [place], [address] Basophils/100 WBC (Bld) 0.6 % Normal 0-1 [facility] Comment on above: Performed By: #### L 100.0100, L500.2500 ####[facility] [address] [place], [address] Eosinophils/100 WBC (Bld) 1.8 % Normal 0-5 [facility] Comment on above: Performed By: #### L 100.0100, L500.2500 ####[facility] [address] [place], [address] Erythrocyte distribution width (RBC) [Ratio] 13.2 % Normal 11.6-14.6 [facility] Comment on above: Performed By: #### L 100.0100, L500.2500 ####[facility] [address] [place], [address] Hematocrit (Bld) [Volume fraction] 24.6 % Low 37-47 [facility] Comment on above: Performed By: #### L 100.0100, L500.2500 ####[facility] [address] [place], [address] Hemoglobin (Bld) [Mass/Vol] 8.5 g/dL Low 12.0-15.0 [facility] Comment on above: Performed By: #### L 100.0100, L500.2500 ####[facility] [address] [place], [address] IG% 0.900 Normal 0.0-0.9 [facility] Comment on above: Result Comment: IG% - Immature Granulocytes (promyelocytes, myelocytes andmetamyelocytes) > 1% indicates that a LEFT SHIFT is Present. Performed By: #### L 100.0100, L500.2500 ####[facility] [address] [place], [address] Lymphocytes/100 WBC (Bld) 11.6 % Low 19-41 [facility] Comment on above: Performed By: #### L 100.0100, L500.2500 ####[facility] [address] [place], [address] MCH (RBC) [Entitic mass] 29.9 pg Normal 27.0-32.0 [facility] Comment on above: Performed By: #### L 100.0100, L500.2500 ####[facility] [address] [place], [address] MCHC (RBC) [Mass/Vol] 34.6 g/dL Normal 32-36 [facility] Comment on above: Performed By: #### L 100.0100, L500.2500 ####[facility] [address] [place], [address] MCV (RBC) [Entitic vol] 86.6 fL Normal 81-99 [facility] Comment on above: Performed By: #### L 100.0100, L500.2500 ####[facility] [address] [place], [address] Monocytes/100 WBC (Bld) 7.6 % Normal 0-10 [facility] Comment on above: Performed By: #### L 100.0100, L500.2500 ####[facility] [address] [place], [address] Neutrophils/100 WBC (Bld) 77.5 % High 47-70 [facility] Comment on above: Performed By: #### L 100.0100, L500.2500 ####[facility] [address] [place], [address] Nucleated RBC (Bld) [#/Vol] 0 10*3/uL Normal 0-5 [facility] Comment on above: Performed By: #### L 100.0100, L500.2500 ####[facility] [address] [place], [address] Platelet mean volume (Bld) [Entitic vol] 10.3 fL Normal 6.2-12.0 [facility] Comment on above: Performed By: #### L 100.0100, L500.2500 ####[facility] [address] [place], [address] Platelets (Bld) [#/Vol] 177 10*3/uL Normal 150-450 [facility] Comment on above: Performed By: #### L 100.0100, L500.2500 ####[facility] [address] [place], [address] RBC (Bld) [#/Vol] 2.84 10*6/uL Low 4.2-5.4 [facility] Comment on above: Performed By: #### L 100.0100, L500.2500 ####[facility] [address] [place], [address] RDW SD 41.2 fl Normal 35.1-43.9 [facility] Comment on above: Performed By: #### L 100.0100, L500.2500 ####[facility] [address] [place], [place], [address] WBC (Bld) [#/Vol] 11.6 10*3/uL High 4.4-11.0 [facility] Comment on above: Performed By: #### L 100.0100, L500.2500 ####[facility] [address] [place], [address] Carbon dioxide, total [Moles /volume] in Central venous bloodOrdered By: Allison Tran on 03-04-2025 CO2 [Moles/Vol] 26.0 mmol/L 21.0-32.0 [facility] Chloride assayOrdered By: Jessica Tran on 03-04-2025 Chloride [Moles/Vol] 103 mmol/L 98-108 [facility] Eosinophil percentageOrdered By: Allison Tran on 03-04-2025 Eosinophils/100 WBC (Bld) 1.8 % 0-5 [facility] Erythrocyte distribution wid th (RBC) [Ratio]Ordered By: Allison Tran on 03-04-2025 Erythrocyte distribution width (RBC) [Entitic vol] 41.2 fL 35.1-43.9 [facility] Erythrocyte distribution wid th ratioOrdered By: Allison Chelsea 03-04-2025 Erythrocyte distribution width (RBC) [Ratio] 13.2 % 11.6-14.6 [facility] Erythrocyte distribution wid th standard deviationOrdered By: [facility] Chelsea 03-04-2025 Erythrocyte distribution width (RBC) [Ratio] 41.2 fl 35.1-43.9 [facility] Estimation of creatinine winston aranceOrdered By: Allison Tran on 03-04-2025 Estimated Creatinine Clearance Calc 41.63 ml/min Low 50-250 [facility] GFR/1.73 sq M.predicted arti g non-blacks MDRD (S/P/Bld) [Vol rate/Area]Ordered By: Allison Tran on 03-04-2025 Estimated GFR (MDRD) Non-Af Amer 77 >60 [facility] Comment on above: mL/min/1.73m2 CKD-EP I Creatinine Equation (2020) Glomerular filtration rate ( GFR) estimation/1.73 sq m using serum, plasma, or whole bOrdered By: Allison Tran on 03-04-2025 GFR/1.73 sq M.predicted among non-blacks MDRD (S/P/Bld) [Vol rate/Area] 77 mL/min/{1.73_m2} >60 [facility] Comment on above: mL/min/1.73m2 CKD-EP I Creatinine Equation (2020) Hematocrit Auto (Bld) [Volum e fraction]Ordered By: Allison Tran on 03-04-2025 Hematocrit (Bld) [Volume fraction] 24.6 % Low 37-47 [facility] Hemoglobin measurementOrdere d By: Allison Tran 03-04-2025 Hemoglobin (Bld) [Mass/Vol] 8.5 g/dL Low 12.0-15.0 [facility] Immature granulocytes/100 WB C Auto (Bld)Ordered By: Allison Tran 03-04-2025 Immature granulocytes/100 WBC (Bld) 0.900 % 0.0-0.9 [facility] Comment on above: IG% - Immature Granu locytes (promyelocytes, myelocytes and metamyelocytes) > 1% indicates that a LEFT SHIFT is Present. Lymphocytes Auto (Unsp spec) [#/Vol]Ordered By: Allison Tran 03-04-2025 Lymphocytes (Bld) [#/Vol] 1.35 10*3/uL 0.83-4.51 [facility] Lymphocytes/100 WBC Auto (Un sp spec)Ordered By: Allison Tran 03-04-2025 Lymphocytes/100 WBC (Bld) 11.6 % Low 19-41 [facility] MCV (mean corpuscular volume ) determinationOrdered By: Allison Tran 03-04-2025 MCV (RBC) [Entitic vol] 86.6 fL 81-99 [facility] Mean corpuscular hemoglobin (MCH) determinationOrdered By: Allison Tran 03-04-2025 MCH (RBC) [Entitic mass] 29.9 pg 27.0-32.0 [facility] Mean corpuscular hemoglobin concentration (MCHC) determinationOrdered By: Allison Tran 03-04-2025 MCHC (RBC) [Mass/Vol] 34.6 g/dL 32-36 [facility] Mean platelet volume determi nationOrdered By: Allison Tran on 03-04-2025 Platelet mean volume (Bld) [Entitic vol] 10.3 fL 6.2-12.0 [facility] Monocyte percentageOrdered B y: Allison Tran on 03-04-2025 Monocytes/100 WBC (Bld) 7.6 % 0-10 [facility] Neutrophil percentageOrdered By: Allison Tran on 03-04-2025 Neutrophils/100 WBC (Bld) 77.5 % High 47-70 [facility] Nucleated red blood cell per centageOrdered By: Allison Tran on 03-04-2025 Nucleated RBC/100 WBC (Bld) [Ratio] 0 % 0-5 [facility] Platelet countOrdered By: Na jessica Tran on 03-04-2025 Platelets (Bld) [#/Vol] 177 10*3/uL 150-450 [facility] Potassium (Unsp spec) [Mass/ Vol]Ordered By: Allison Tran on 03-04-2025 Potassium [Moles/Vol] 3.7 mmol/L 3.3-5.1 [facility] Potassium measurement (mass/ volume)Ordered By: Allison Tran on 03-04-2025 Potassium (Unsp spec) [Mass/Vol] 3.7 mmol/L 3.3-5.1 [facility] RBC Auto (Bld) [#/Vol]Ordere d By: Allison Tran on 03-04-2025 RBC (Bld) [#/Vol] 2.84 10*6/uL Low 4.2-5.4 [facility] Serum creatinine measurement (mass/volume)Ordered By: Allison Tran on 03-04-2025 Creatinine [Mass/Vol] 0.76 mg/dL 0.70-1.20 [facility] Serum glucose measurement (m ass/volume)Ordered By: Allison Tran on 03-04-2025 Glucose [Mass/Vol] 112 mg/dL High 70-99 [facility] Serum or plasma calcium thomas urement (mass/volume)Ordered By: Allison Tran on 03-04-2025 Calcium [Mass/Vol] 8.4 mg/dL 7.6-11.0 [facility] Serum or plasma urea nitroge n measurement (mass/volume)Ordered By: Allisonemeterio Tran on 03-04-2025 Urea nitrogen [Mass/Vol] 14 mg/dL 4-19 [facility] Sodium levelOrdered By: Allison Tran on 03-04-2025 Sodium [Moles/Vol] 139 mmol/L 133-145 [facility] White blood cell (WBC) count Ordered By: Allison Tran on 03-04-2025 WBC (Bld) [#/Vol] 11.6 10*3/uL High 4.4-11.0 [facility] Basic Metabolic Profile (BMP )on 03-03-2025 BUN/CRE 13.6 RATIO Normal 10-20 [facility] Comment on above: Performed By: #### L 100.0100, L500.2500 ####[facility] [address] [place], [address] Calcium [Mass/Vol] 8.3 mg/dL Normal 7.6-11.0 [facility] Comment on above: Performed By: #### L 100.0100, L500.2500 ####[facility] [address] [place], [address] Chloride [Moles/Vol] 102 mmol/L Normal 98-108 [facility] Comment on above: Performed By: #### L 100.0100, L500.2500 ####[facility] [address] [place], [address] CO2 [Moles/Vol] 25.7 mmol/L Normal 21.0-32.0 [facility] Comment on above: Performed By: #### L 100.0100, L500.2500 ####[facility] [address] [place], [address] Creatinine [Mass/Vol] 0.94 mg/dL Normal 0.70-1.20 [facility] Comment on above: Performed By: #### L 100.0100, L500.2500 ####[facility] [address] [place], [address] ECRCL 35.43 ml/min Low 50-250 [facility] Comment on above: Performed By: #### L 100.0100, L500.2500 ####[facility] [address] [place], [address] GAP 10 Normal 5-15 [facility] Comment on above: Performed By: #### L 100.0100, L500.2500 ####[facility] [address] [place], [address] GFR/1.73 sq M.predicted among non-blacks MDRD (S/P/Bld) [Vol rate/Area] 60 mL/min/{1.73_m2} Normal >60 [facility] Comment on above: Result Comment: mL/m in/1.73m2 CKD-EPI Creatinine Equation (2020) Performed By: #### L 100.0100, L500.2500 ####[facility] [address] [place], [address] Glucose [Mass/Vol] 102 mg/dL High 70-99 [facility] Comment on above: Performed By: #### L 100.0100, L500.2500 ####[facility] [address] [place], [address] Potassium [Moles/Vol] 3.9 mmol/L Normal 3.3-5.1 [facility] Comment on above: Result Comment: Hemo lysis present, Results??could be affected.?? Performed By: #### L 100.0100, L500.2500 ####[facility] [address] [place], [address] Sodium [Moles/Vol] 137 mmol/L Normal 133-145 [facility] Comment on above: Performed By: #### L 100.0100, L500.2500 ####[facility] [address] [place], [address] Urea nitrogen [Mass/Vol] 13 mg/dL Normal 4-19 [facility] Comment on above: Performed By: #### L 100.0100, L500.2500 ####[facility] [address] [place], [address] CBC W/Diff, Automatedon 04-11 23-2024 Absolute Lymph 1.61 X10 3/uL Normal 0.83-4.51 [facility] Comment on above: Performed By: #### L 100.0100, L500.2500 ####[facility] [address] [place], [address] Absolute Neut 9.5 X10 3/uL High 2.0-7.7 [facility] Comment on above: Performed By: #### L 100.0100, L500.2500 ####[facility] [address] [place], [address] Basophils/100 WBC (Bld) 0.5 % Normal 0-1 [facility] Comment on above: Performed By: #### L 100.0100, L500.2500 ####[facility] [address] [place], [address] Eosinophils/100 WBC (Bld) 1.9 % Normal 0-5 [facility] Comment on above: Performed By: #### L 100.0100, L500.2500 ####[facility] [address] [place], [address] Erythrocyte distribution width (RBC) [Ratio] 13.2 % Normal 11.6-14.6 [facility] Comment on above: Performed By: #### L 100.0100, L500.2500 ####[facility] [address] [place], [address] Hematocrit (Bld) [Volume fraction] 25.5 % Low 37-47 [facility] Comment on above: Performed By: #### L 100.0100, L500.2500 ####[facility] [address] [place], [address] Hemoglobin (Bld) [Mass/Vol] 8.7 g/dL Low 12.0-15.0 [facility] Comment on above: Performed By: #### L 100.0100, L500.2500 ####[facility] [address] [place], [address] IG% 0.800 Normal 0.0-0.9 [facility] Comment on above: Result Comment: IG% - Immature Granulocytes (promyelocytes, myelocytes andmetamyelocytes) > 1% indicates that a LEFT SHIFT is Present. Performed By: #### L 100.0100, L500.2500 ####[facility] [address] [place], [address] Lymphocytes/100 WBC (Bld) 12.6 % Low 19-41 [facility] Comment on above: Performed By: #### L 100.0100, L500.2500 ####[facility] [address] [place], [address] MCH (RBC) [Entitic mass] 30.2 pg Normal 27.0-32.0 [facility] Comment on above: Performed By: #### L 100.0100, L500.2500 ####[facility] [address] [place], [address] MCHC (RBC) [Mass/Vol] 34.1 g/dL Normal 32-36 [facility] Comment on above: Performed By: #### L 100.0100, L500.2500 ####[facility] [address] [place], [address] MCV (RBC) [Entitic vol] 88.5 fL Normal 81-99 [facility] Comment on above: Performed By: #### L 100.0100, L500.2500 ####[facility] [address] [place], [address] Monocytes/100 WBC (Bld) 9.6 % Normal 0-10 [facility] Comment on above: Performed By: #### L 100.0100, L500.2500 ####[facility] [address] [place], [address] Neutrophils/100 WBC (Bld) 74.6 % High 47-70 [facility] Comment on above: Performed By: #### L 100.0100, L500.2500 ####[facility] [address] [place], [address] Nucleated RBC (Bld) [#/Vol] 0 10*3/uL Normal 0-5 [facility] Comment on above: Performed By: #### L 100.0100, L500.2500 ####[facility] [address] [place], [address] Platelet mean volume (Bld) [Entitic vol] 10.4 fL Normal 6.2-12.0 [facility] Comment on above: Performed By: #### L 100.0100, L500.2500 ####[facility] [address] [place], [address] Platelets (Bld) [#/Vol] 171 10*3/uL Normal 150-450 [facility] Comment on above: Performed By: #### L 100.0100, L500.2500 ####[facility] [address] [place], [address] RBC (Bld) [#/Vol] 2.88 10*6/uL Low 4.2-5.4 [facility] Comment on above: Performed By: #### L 100.0100, L500.2500 ####[facility] [address] [place], [address] RDW SD 42.8 fl Normal 35.1-43.9 [facility] Comment on above: Performed By: #### L 100.0100, L500.2500 ####[facility] [address] [place], [address] WBC (Bld) [#/Vol] 12.8 10*3/uL High 4.4-11.0 [facility] Comment on above: Performed By: #### L 100.0100, L500.2500 ####[facility] [address] [place], [address] MR/[id number] 03-03-2025 MR/POSTOPAN2 Normal [facility] Bilirubin, totalOrdered By: Roro Long on 03-02-2025 Bilirubin [Mass/Vol] 1.32 mg/dL High 0.00-1.30 [facility] CBC W/Diff, Automatedon 02-17 Absolute Lymph 1.50 X10 3/uL Normal 0.83-4.51 [facility] Comment on above: Performed By: #### L 100.0100, L501.9520, L501.5200, L501.2300, L500.4050 ####[facility] [address] [place], [address] Absolute Neut 9.9 X10 3/uL High 2.0-7.7 [facility] Comment on above: Performed By: #### L 100.0100, L501.9520, L501.5200, L501.2300, L500.4050 ####[facility] [address] [place], [address] Basophils/100 WBC (Bld) 0.4 % Normal 0-1 [facility] Comment on above: Performed By: #### L 100.0100, L501.9520, L501.5200, L501.2300, L500.4050 ####[facility] [address] [place], [address] Eosinophils/100 WBC (Bld) 0.9 % Normal 0-5 [facility] Comment on above: Performed By: #### L 100.0100, L501.9520, L501.5200, L501.2300, L500.4050 ####[facility] [address] [place], [address] Erythrocyte distribution width (RBC) [Ratio] 13.2 % Normal 11.6-14.6 [facility] Comment on above: Performed By: #### L 100.0100, L501.9520, L501.5200, L501.2300, L500.4050 ####[facility] [address] [place], [address] Hematocrit (Bld) [Volume fraction] 33.7 % Low 37-47 [facility] Comment on above: Performed By: #### L 100.0100, L501.9520, L501.5200, L501.2300, L500.4050 ####[facility] [address] [place], [address] Hemoglobin (Bld) [Mass/Vol] 11.6 g/dL Low 12.0-15.0 [facility] Comment on above: Performed By: #### L 100.0100, L501.9520, L501.5200, L501.2300, L500.4050 ####[facility] [address] [place], [address] IG% 0.900 Normal 0.0-0.9 [facility] Comment on above: Result Comment: IG% - Immature Granulocytes (promyelocytes, myelocytes andmetamyelocytes) > 1% indicates that a LEFT SHIFT is Present. Performed By: #### L 100.0100, L501.9520, L501.5200, L501.2300, L500.4050 ####[facility] [address] [place], [address] Lymphocytes/100 WBC (Bld) 11.6 % Low 19-41 [facility] Comment on above: Performed By: #### L 100.0100, L501.9520, L501.5200, L501.2300, L500.4050 ####[facility] [address] [place], [address] MCH (RBC) [Entitic mass] 30.5 pg Normal 27.0-32.0 [facility] Comment on above: Performed By: #### L 100.0100, L501.9520, L501.5200, L501.2300, L500.4050 ####[facility] [address] [place], [address] MCHC (RBC) [Mass/Vol] 34.4 g/dL Normal 32-36 [facility] Comment on above: Performed By: #### L 100.0100, L501.9520, L501.5200, L501.2300, L500.4050 ####[facility] [address] [place], [address] MCV (RBC) [Entitic vol] 88.7 fL Normal 81-99 [facility] Comment on above: Performed By: #### L 100.0100, L501.9520, L501.5200, L501.2300, L500.4050 ####[facility] [address] [place], [address] Monocytes/100 WBC (Bld) 9.5 % Normal 0-10 [facility] Comment on above: Performed By: #### L 100.0100, L501.9520, L501.5200, L501.2300, L500.4050 ####[facility] [address] [place], [address] Neutrophils/100 WBC (Bld) 76.7 % High 47-70 [facility] Comment on above: Performed By: #### L 100.0100, L501.9520, L501.5200, L501.2300, L500.4050 ####[facility] [address] [place], [address] Nucleated RBC (Bld) [#/Vol] 0 10*3/uL Normal 0-5 [facility] Comment on above: Performed By: #### L 100.0100, L501.9520, L501.5200, L501.2300, L500.4050 ####[facility] [address] [place], [address] Platelet mean volume (Bld) [Entitic vol] 9.5 fL Normal 6.2-12.0 [facility] Comment on above: Performed By: #### L 100.0100, L501.9520, L501.5200, L501.2300, L500.4050 ####[facility] [address] [place], [address] Platelets (Bld) [#/Vol] 203 10*3/uL Normal 150-450 [facility] Comment on above: Performed By: #### L 100.0100, L501.9520, L501.5200, L501.2300, L500.4050 ####[facility] [address] [place], [address] RBC (Bld) [#/Vol] 3.80 10*6/uL Low 4.2-5.4 [facility] Comment on above: Performed By: #### L 100.0100, L501.9520, L501.5200, L501.2300, L500.4050 ####[facility] [address] [place], [address] RDW SD 42.8 fl Normal 35.1-43.9 [facility] Comment on above: Performed By: #### L 100.0100, L501.9520, L501.5200, L501.2300, L500.4050 ####[facility] [address] [place], [address] WBC (Bld) [#/Vol] 12.9 10*3/uL High 4.4-11.0 [facility] Comment on above: Performed By: #### L 100.0100, L501.9520, L501.5200, L501.2300, L500.4050 ####[facility] [address] [place], [address] Comprehensive Metabolic Prof ilon 03-02-2025 Albumin [Mass/Vol] 3.7 g/dL Normal 3.4-4.8 [facility] Comment on above: Performed By: #### L 100.0100, L501.9520, L501.5200, L501.2300, L500.4050 ####[facility] [address] [place], [address] Albumin/Globulin [Mass ratio] 1.6 {ratio} Normal 0.9-2.4 [facility] Comment on above: Performed By: #### L 100.0100, L501.9520, L501.5200, L501.2300, L500.4050 ####[facility] [address] [place], [address] ALK PHOS 55 U/L Normal 35-104 [facility] Comment on above: Performed By: #### L 100.0100, L501.9520, L501.5200, L501.2300, L500.4050 ####[facility] [address] [place], [address] ALT [Catalytic activity/Vol] 11 U/L Normal <=34 [facility] Comment on above: Performed By: #### L 100.0100, L501.9520, L501.5200, L501.2300, L500.4050 ####[facility] [address] [place], [address] AST [Catalytic activity/Vol] 27 U/L Normal <=31 [facility] Comment on above: Performed By: #### L 100.0100, L501.9520, L501.5200, L501.2300, L500.4050 ####[facility] [address] [place], [address] Bilirubin [Mass/Vol] 1.32 mg/dL High 0.00-1.30 [facility] Comment on above: Performed By: #### L 100.0100, L501.9520, L501.5200, L501.2300, L500.4050 ####[facility] [address] [place], [address] BUN/CRE 15.4 RATIO Normal 10-20 [facility] Comment on above: Performed By: #### L 100.0100, L501.9520, L501.5200, L501.2300, L500.4050 ####[facility] [address] [place], [address] Calcium [Mass/Vol] 9.0 mg/dL Normal 7.6-11.0 [facility] Comment on above: Performed By: #### L 100.0100, L501.9520, L501.5200, L501.2300, L500.4050 ####[facility] [address] [place], [address] Chloride [Moles/Vol] 103 mmol/L Normal 98-108 [facility] Comment on above: Performed By: #### L 100.0100, L501.9520, L501.5200, L501.2300, L500.4050 ####[facility] [address] [place], [address] CO2 [Moles/Vol] 27.7 mmol/L Normal 21.0-32.0 [facility] Comment on above: Performed By: #### L 100.0100, L501.9520, L501.5200, L501.2300, L500.4050 ####[facility] [address] [place], [address] Creatinine [Mass/Vol] 1.06 mg/dL Normal 0.70-1.20 [facility] Comment on above: Performed By: #### L 100.0100, L501.9520, L501.5200, L501.2300, L500.4050 ####[facility] [address] [place], [address] ECRCL 31.45 ml/min Low 50-250 [facility] Comment on above: Performed By: #### L 100.0100, L501.9520, L501.5200, L501.2300, L500.4050 ####[facility] [address] [place], [address] GAP 9 Normal 5-15 [facility] Comment on above: Performed By: #### L 100.0100, L501.9520, L501.5200, L501.2300, L500.4050 ####[facility] [address] [place], [address] GFR/1.73 sq M.predicted among non-blacks MDRD (S/P/Bld) [Vol rate/Area] 52 mL/min/{1.73_m2} Low >60 [facility] Comment on above: Result Comment: mL/m in/1.73m2 CKD-EPI Creatinine Equation (2020) Performed By: #### L 100.0100, L501.9520, L501.5200, L501.2300, L500.4050 ####[facility] [address] [place], [address] Globulin (S) [Mass/Vol] 2.3 g/dL Normal 2.2-4.2 [facility] Comment on above: Performed By: #### L 100.0100, L501.9520, L501.5200, L501.2300, L500.4050 ####[facility] [address] [place], [address] Glucose [Mass/Vol] 109 mg/dL High 70-99 [facility] Comment on above: Performed By: #### L 100.0100, L501.9520, L501.5200, L501.2300, L500.4050 ####[facility] [address] [place], [address] Potassium [Moles/Vol] 4.0 mmol/L Normal 3.3-5.1 [facility] Comment on above: Performed By: #### L 100.0100, L501.9520, L501.5200, L501.2300, L500.4050 ####[facility] [address] [place], [address] Sodium [Moles/Vol] 140 mmol/L Normal 133-145 [facility] Comment on above: Performed By: #### L 100.0100, L501.9520, L501.5200, L501.2300, L500.4050 ####[facility] [address] [place], [address] T PROT 6.0 g/dL Normal 5.9-8.4 [facility] Comment on above: Performed By: #### L 100.0100, L501.9520, L501.5200, L501.2300, L500.4050 ####[facility] [address] [place], [address] Urea nitrogen [Mass/Vol] 16 mg/dL Normal 4-19 [facility] Comment on above: Performed By: #### L 100.0100, L501.9520, L501.5200, L501.2300, L500.4050 ####[facility] [address] [place], [address] Consultation - Orthopedicson 03-02-2025 Consultation - Orthopedics Normal [facility] Electrocardiogram reportOrde red By: Grazyna Santizo on 03-02-2025 EKG study [facility] Cardiovascular Services [address] [place] [address] 12 Lead EKG 03/01/25 1232 MR#: [id number] Acct: [id number] Name: MICHAELA BRANDT Rep #:[id number] : 1940 84 From: Grazyna palmer MD Attending Dr: Dr. Allison Tran MD Status: ADM IN Ordering Dr: Guerrero Valerio DO Date: 0 03/01/25 Location: [facility] [place] Sex: F C Admitted: [...] normal variant ( R in aVL , [place] product ) Borderline ECG Confirmed by Grazyna Santizo ([id number]), editor house organ NICKOLAS PALOMARES ([id number]) on :19:11 PM Referred By: Confirmed By: Grazyna Santizo 03/02/25 1319 Date _ Grazyna Santizo MD CC: Dr. Anaid Santiago MD; Dr. Guerrero Valerio DO; Dr. Allison Tran MD ~ Signed [facility] Other Phone: Hip Min 2 Views (Portable)on 03-02-2025 Hip Min 2 Views (Portable) Normal [facility] Hip Min 2 Views (Portable) Normal [facility] Laboratory - Chemistry and C hemistry - challengeOrdered By: Roro Long on 03-02-2025 AST [Catalytic activity/Vol] 27 U/L <32 [facility] MR/POSTOP.ANEon 03-02-2025 MR/POSTOP.ANE Normal [facility] Magnesiumon 03-02-2025 Magnesium [Mass/Vol] 2.2 mg/dL Normal 1.5-2.2 [facility] Comment on above: Performed By: #### L 100.0100, L501.9520, L501.5200, L501.2300, L500.4050 ####[facility] [address] [place], [place], [address] Magnesium (Unsp spec) [Mass/ Vol]Ordered By: Roro Long on 03-02-2025 Magnesium [Mass/Vol] 2.2 mg/dL 1.5-2.2 [facility] Magnesium measurement (mass/ volume)Ordered By: Roro Long on 03-02-2025 Magnesium (Unsp spec) [Mass/Vol] 2.2 mg/dL 1.5-2.2 [facility] Operative Reporton Operative Report Normal [facility] Phosphoruson 03-02-2025 Phosphate [Mass/Vol] 4.0 mg/dL Normal 2.7-4.5 [facility] Comment on above: Performed By: #### L 100.0100, L501.9520, L501.5200, L501.2300, L500.4050 ####[facility] [address] [place], [place], [address] Serum globulin measurementOr dered By: Roro Long on 03-02-2025 Globulin (S) [Mass/Vol] 2.3 g/dL 2.2-4.2 [facility] Serum or plasma alanine tillman otransferase (ALT) measurementOrdered By: Roro Long on 03-02-2025 ALT [Catalytic activity/Vol] 11 U/L <35 [facility] Serum or plasma albumin thomas urement (mass/volume)Ordered By: Roro Long on 03-02-2025 Albumin [Mass/Vol] 3.7 g/dL 3.4-4.8 [facility] Serum or plasma albumin/glob ulin mass ratioOrdered By: Roro Long on 03-02-2025 Albumin/Globulin [Mass ratio] 1.6 {ratio} 0.9-2.4 [facility] Serum or plasma alkaline mariah sphatase measurementOrdered By: Roro Long on 03-02-2025 ALP [Catalytic activity/Vol] 55 U/L 35-104 [facility] Serum phosphorus measurement Ordered By: Roro Long on 03-02-2025 Phosphorus Level 4.0 mg/dL 2.7-4.5 [facility] TSH DL <= 0.005 mIU/L QnOrde red By: Roro Long on 03-02-2025 Thyroid Stimulating Hormone (TSH) 1.470 uIU/mL 0.300-4.200 [facility] TSH Qn 1.470 uIU/mL 0.300-4.200 [facility] Thyroid Stim Hormone (TSH)on 03-02-2025 TSH 1.470 uIU/mL Normal 0.300-4.200 [facility] Comment on above: Performed By: #### L 100.0100, L501.9520, L501.5200, L501.2300, L500.4050 ####[facility] [address] [place], [place], [address] Total proteinOrdered By: Indu Long on 03-02-2025 Protein [Mass/Vol] 6.0 g/dL 5.9-8.4 [facility] 12 Lead EKGon 03-01-2025 12 Lead EKG Normal [facility] Absolute neutrophil countOrd ered By: Guerrero Valerio on 03-01-2025 Neutrophils (Bld) [#/Vol] 17.3 10*3/uL High 2.0-7.7 [facility] Activated partial thrombopla stin time (aPTT) in platelet poor plasma by coagulation aOrdered By: Guerrero Valerio on 03-01-2025 aPTT Coag (PPP) [Time] 25.8 s 24.1-36.2 [facility] Anion gap in Serum or Plasma Ordered By: Guerrero Valerio on 03-01-2025 Anion gap [Moles/Vol] 11 mmol/L 5-15 [facility] BUN/creatinine ratioOrdered By: Guerrero Valerio on 03-01-2025 Urea nitrogen/Creatinine [Mass ratio] 17.4 mg/mg 10- [facility] Basic Metabolic Profile (BMP )on 03-01-2025 BUN/CRE 17.4 RATIO Normal - [facility] Comment on above: Performed By: #### L 300.3900, L100.0100, L500.2500, L300.4310, BTS ####[facility] [address] [place], [address] Calcium [Mass/Vol] 9.2 mg/dL Normal 7.6-11.0 [facility] Comment on above: Performed By: #### L 300.3900, L100.0100, L500.2500, L300.4310, BTS ####[facility] [address] [place], [address] Chloride [Moles/Vol] 104 mmol/L Normal 98-108 [facility] Comment on above: Performed By: #### L 300.3900, L100.0100, L500.2500, L300.4310, BTS ####[facility] [address] [place], [address] CO2 [Moles/Vol] 25.2 mmol/L Normal 21.0-32.0 [facility] Comment on above: Performed By: #### L 300.3900, L100.0100, L500.2500, L300.4310, BTS ####[facility] [address] [place], [address] Creatinine [Mass/Vol] 0.90 mg/dL Normal 0.70-1.20 [facility] Comment on above: Performed By: #### L 300.3900, L100.0100, L500.2500, L300.4310, BTS ####[facility] [address] [place], [address] ECRCL 37.62 ml/min Low 50-250 [facility] Comment on above: Performed By: #### L 300.3900, L100.0100, L500.2500, L300.4310, BTS ####[facility] [address] [place], [address] GAP 11 Normal 5-15 [facility] Comment on above: Performed By: #### L 300.3900, L100.0100, L500.2500, L300.4310, BTS ####[facility] [address] [place], [address] GFR/1.73 sq M.predicted among non-blacks MDRD (S/P/Bld) [Vol rate/Area] 63 mL/min/{1.73_m2} Normal >60 [facility] Comment on above: Result Comment: mL/m in/1.73m2 CKD-EPI Creatinine Equation (2020) Performed By: #### L 300.3900, L100.0100, L500.2500, L300.4310, BTS ####[facility] [address] [place], [address] Glucose [Mass/Vol] 148 mg/dL High 70-99 [facility] Comment on above: Performed By: #### L 300.3900, L100.0100, L500.2500, L300.4310, BTS ####[facility] [address] [place], [address] Potassium [Moles/Vol] 4.2 mmol/L Normal 3.3-5.1 [facility] Comment on above: Performed By: #### L 300.3900, L100.0100, L500.2500, L300.4310, BTS ####[facility] [address] [place], [address] Sodium [Moles/Vol] 140 mmol/L Normal 133-145 [facility] Comment on above: Performed By: #### L 300.3900, L100.0100, L500.2500, L300.4310, BTS ####[facility] [address] [place], [address] Urea nitrogen [Mass/Vol] 16 mg/dL Normal 4-19 [facility] Comment on above: Performed By: #### L 300.3900, L100.0100, L500.2500, L300.4310, BTS ####[facility] [address] [place], [address] Basophil percentageOrdered B y: Guerrero Chawlaehne on 03-01-2025 Basophils/100 WBC (Bld) 0.2 % 0-1 [facility] Brain/Head without Contrasto n 03-01-2025 Brain/Head without Contrast Normal [facility] CBC W/Diff, Automatedon 02-17 Absolute Lymph 0.63 X10 3/uL Low 0.83-4.51 [facility] Comment on above: Performed By: #### L 300.3900, L100.0100, L500.2500, L300.4310, BTS ####[facility] [address] [place], [address] Absolute Neut 17.3 X10 3/uL High 2.0-7.7 [facility] Comment on above: Performed By: #### L 300.3900, L100.0100, L500.2500, L300.4310, BTS ####[facility] [address] [place], [address] Basophils/100 WBC (Bld) 0.2 % Normal 0-1 [facility] Comment on above: Performed By: #### L 300.3900, L100.0100, L500.2500, L300.4310, BTS ####[facility] [address] [place], [address] Eosinophils/100 WBC (Bld) 0.0 % Normal 0-5 [facility] Comment on above: Performed By: #### L 300.3900, L100.0100, L500.2500, L300.4310, BTS ####[facility] [address] [place], [address] Erythrocyte distribution width (RBC) [Ratio] 12.9 % Normal 11.6-14.6 [facility] Comment on above: Performed By: #### L 300.3900, L100.0100, L500.2500, L300.4310, BTS ####[facility] [address] [place], [address] Hematocrit (Bld) [Volume fraction] 37.3 % Normal 37-47 [facility] Comment on above: Performed By: #### L 300.3900, L100.0100, L500.2500, L300.4310, BTS ####[facility] [address] [place], [address] Hemoglobin (Bld) [Mass/Vol] 13.0 g/dL Normal 12.0-15.0 [facility] Comment on above: Performed By: #### L 300.3900, L100.0100, L500.2500, L300.4310, BTS ####[facility] [address] [place], [address] IG% 0.600 Normal 0.0-0.9 [facility] Comment on above: Result Comment: IG% - Immature Granulocytes (promyelocytes, myelocytes andmetamyelocytes) > 1% indicates that a LEFT SHIFT is Present. Performed By: #### L 300.3900, L100.0100, L500.2500, L300.4310, BTS ####[facility] [address] [place], [address] Lymphocytes/100 WBC (Bld) 3.3 % Low 19-41 [facility] Comment on above: Performed By: #### L 300.3900, L100.0100, L500.2500, L300.4310, BTS ####[facility] [address] [place], [address] MCH (RBC) [Entitic mass] 30.4 pg Normal 27.0-32.0 [facility] Comment on above: Performed By: #### L 300.3900, L100.0100, L500.2500, L300.4310, BTS ####[facility] [address] [place], [address] MCHC (RBC) [Mass/Vol] 34.9 g/dL Normal 32-36 [facility] Comment on above: Performed By: #### L 300.3900, L100.0100, L500.2500, L300.4310, BTS ####[facility] [address] [place], [address] MCV (RBC) [Entitic vol] 87.1 fL Normal 81-99 [facility] Comment on above: Performed By: #### L 300.3900, L100.0100, L500.2500, L300.4310, BTS ####[facility] [address] [place], [address] Monocytes/100 WBC (Bld) 3.8 % Normal 0-10 [facility] Comment on above: Performed By: #### L 300.3900, L100.0100, L500.2500, L300.4310, BTS ####[facility] [address] [place], [address] Neutrophils/100 WBC (Bld) 92.1 % High 47-70 [facility] Comment on above: Performed By: #### L 300.3900, L100.0100, L500.2500, L300.4310, BTS ####[facility] [address] [place], [address] Nucleated RBC (Bld) [#/Vol] 0 10*3/uL Normal 0-5 [facility] Comment on above: Performed By: #### L 300.3900, L100.0100, L500.2500, L300.4310, BTS ####[facility] [address] [place], [address] Platelet mean volume (Bld) [Entitic vol] 10.3 fL Normal 6.2-12.0 [facility] Comment on above: Performed By: #### L 300.3900, L100.0100, L500.2500, L300.4310, BTS ####[facility] [address] [place], [address] Platelets (Bld) [#/Vol] 239 10*3/uL Normal 150-450 [facility] Comment on above: Performed By: #### L 300.3900, L100.0100, L500.2500, L300.4310, BTS ####[facility] [address] [place], [address] RBC (Bld) [#/Vol] 4.28 10*6/uL Normal 4.2-5.4 [facility] Comment on above: Performed By: #### L 300.3900, L100.0100, L500.2500, L300.4310, BTS ####[facility] [address] [place], [address] RDW SD 40.5 fl Normal 35.1-43.9 [facility] Comment on above: Performed By: #### L 300.3900, L100.0100, L500.2500, L300.4310, BTS ####[facility] [address] [place], [address] WBC (Bld) [#/Vol] 18.8 10*3/uL High 4.4-11.0 [facility] Comment on above: Performed By: #### L 300.3900, L100.0100, L500.2500, L300.4310, BTS ####[facility] [address] [place], [address] Carbon dioxide, total [Moles /volume] in Central venous bloodOrdered By: Guerrero Valerio on 03-01-2025 CO2 [Moles/Vol] 25.2 mmol/L 21.0-32.0 [facility] Chest 1 View (Portable)on Chest 1 View (Portable) Normal [facility] Chloride assayOrdered By: Christophe Valerio on 03-01-2025 Chloride [Moles/Vol] 104 mmol/L 98-108 [facility] Comprehensive Metabolic Prof ilon 03-01-2025 ALB Normal 3.4-4.8 [facility] Comment on above: Result Comment: PER KAMLA IN MS3 WANTS TO CANCEL CMP. PT WILL HAVE MORNINGLABS THEN. Performed By: #### L 500.4050 ####[facility] [address] [place], [address] ALK PHOS Normal 35-104 [facility] Comment on above: Result Comment: PER KAMLA IN MS3 WANTS TO CANCEL CMP. PT WILL HAVE MORNINGLABS THEN. Performed By: #### L 500.4050 ####[facility] [address] [place], [address] ALT Normal <=34 [facility] Comment on above: Result Comment: PER KAMLA IN MS3 WANTS TO CANCEL CMP. PT WILL HAVE MORNINGLABS THEN. Performed By: #### L 500.4050 ####[facility] [address] [place], [address] AST Normal <=31 [facility] Comment on above: Result Comment: PER KAMLA IN MS3 WANTS TO CANCEL CMP. PT WILL HAVE MORNINGLABS THEN. Performed By: #### L 500.4050 ####[facility] [address] [place], [address] BUN Normal 4-19 [facility] Comment on above: Result Comment: PER KAMLA IN MS3 WANTS TO CANCEL CMP. PT WILL HAVE MORNINGLABS THEN. Performed By: #### L 500.4050 ####[facility] [address] [place], [address] BUN/CRE Normal 10-20 [facility] Comment on above: Result Comment: PER KAMLA IN MS3 WANTS TO CANCEL CMP. PT WILL HAVE MORNINGLABS THEN. Performed By: #### L 500.4050 ####[facility] [address] [place], [address] Calcium Normal 7.6-11.0 [facility] Comment on above: Result Comment: PER KAMLA IN MS3 WANTS TO CANCEL CMP. PT WILL HAVE MORNINGLABS THEN. Performed By: #### L 500.4050 ####[facility] [address] [place], [address] CL Normal 98-108 [facility] Comment on above: Result Comment: PER KAMLA IN MS3 WANTS TO CANCEL CMP. PT WILL HAVE MORNINGLABS THEN. Performed By: #### L 500.4050 ####[facility] [address] [place], [address] CO2 Normal 21.0-32.0 [facility] Comment on above: Result Comment: PER KAMLA IN MS3 WANTS TO CANCEL CMP. PT WILL HAVE MORNINGLABS THEN. Performed By: #### L 500.4050 ####[facility] [address] [place], [address] CREAT,SERUM Normal 0.70-1.20 [facility] Comment on above: Result Comment: PER KAMLA IN MS3 WANTS TO CANCEL CMP. PT WILL HAVE MORNINGLABS THEN. Performed By: #### L 500.4050 ####[facility] [address] [place], [address] eGFR Normal >60 [facility] Comment on above: Result Comment: PER KAMLA IN MS3 WANTS TO CANCEL CMP. PT WILL HAVE MORNINGLABS THEN. Performed By: #### L 500.4050 ####[facility] [address] [place], [address] GAP Normal 5-15 [facility] Comment on above: Result Comment: PER KAMLA IN MS3 WANTS TO CANCEL CMP. PT WILL HAVE MORNINGLABS THEN. Performed By: #### L 500.4050 ####[facility] [address] [place], [address] GLU Normal 70-99 [facility] Comment on above: Result Comment: PER KAMLA IN MS3 WANTS TO CANCEL CMP. PT WILL HAVE MORNINGLABS THEN. Performed By: #### L 500.4050 ####[facility] [address] [place], [address] Potassium Normal 3.3-5.1 [facility] Comment on above: Result Comment: PER KAMLA IN MS3 WANTS TO CANCEL CMP. PT WILL HAVE MORNINGLABS THEN. Performed By: #### L 500.4050 ####[facility] [address] [place], [address] T BILI Normal 0.00-1.30 [facility] Comment on above: Result Comment: PER KAMLA IN MS3 WANTS TO CANCEL CMP. PT WILL HAVE MORNINGLABS THEN. Performed By: #### L 500.4050 ####[facility] [address] [place], [address] T PROT Normal 5.9-8.4 [facility] Comment on above: Result Comment: PER KAMLA IN MS3 WANTS TO CANCEL CMP. PT WILL HAVE MORNINGLABS THEN. Performed By: #### L 500.4050 ####[facility] [address] [place], [place], [address] Comprehensive Metabolic Profil Normal 133-145 [facility] Comment on above: Result Comment: PER KAMLA IN MS3 WANTS TO CANCEL CMP. PT WILL HAVE MORNINGLABS THEN. Performed By: #### L 500.4050 ####[facility] [address] [place], [place], [id number] Emergency Department Summary on 03-01-2025 Emergency Department Summary Normal [facility] Eosinophil percentageOrdered By: Guerrero Valerio on 03-01-2025 Eosinophils/100 WBC (Bld) 0.0 % 0-5 [facility] Erythrocyte distribution wid th (RBC) [Ratio]Ordered By: Guerrero Valerio on 03-01-2025 Erythrocyte distribution width (RBC) [Entitic vol] 40.5 fL 35.1-43.9 [facility] Erythrocyte distribution wid th ratioOrdered By: Guerrero Valerio on 03-01-2025 Erythrocyte distribution width (RBC) [Ratio] 12.9 % 11.6-14.6 [facility] Estimation of creatinine winston aranceOrdered By: Guerrero Valerio on 03-01-2025 Estimated Creatinine Clearance Calc 37.62 ml/min Low 50-250 [facility] Extremity Lower without Cont raon 03-01-2025 Extremity Lower without Contra Normal [facility] GFR/1.73 sq M.predicted arti g non-blacks MDRD (S/P/Bld) [Vol rate/Area]Ordered By: Guerrero Valerio on 03-01-2025 Estimated GFR (MDRD) Non-Af Amer 63 >60 [facility] Comment on above: mL/min/1.73m2 CKD-EP I Creatinine Equation (2020) H AND P Exam - [facility] 03-01-2025 H&P Exam - Hospitalist Normal [facility] HIP, UNI W/ Pelvis 2-3 Views on 03-01-2025 HIP, UNI W/ Pelvis 2-3 Views Normal [facility] Hematocrit Auto (Bld) [Volum e fraction]Ordered By: Guerrero Valerio on 03-01-2025 Hematocrit (Bld) [Volume fraction] 37.3 % 37-47 [facility] Hemoglobin measurementOrdere d By: Guerrero Valerio on 03-01-2025 Hemoglobin (Bld) [Mass/Vol] 13.0 g/dL 12.0-15.0 [facility] Immature granulocytes/100 WB C Auto (Bld)Ordered By: Guerrero Valerio on 03-01-2025 Immature granulocytes/100 WBC (Bld) 0.600 % 0.0-0.9 [facility] Comment on above: IG% - Immature Granu locytes (promyelocytes, myelocytes and metamyelocytes) > 1% indicates that a LEFT SHIFT is Present. International normalized rat io (INR) calculationOrdered By: Guerrero Valerio on 03-01-2025 INR Coag (Bld) [Relative time] 1.1 {INR} [facility] Knee 1 or 2 Viewson 03-01-20 25 Knee 1 or 2 Views Normal [facility] Lymphocytes Auto (Unsp spec) [#/Vol]Ordered By: Guerrero Valerio on 03-01-2025 Lymphocytes (Bld) [#/Vol] 0.63 10*3/uL Low 0.83-4.51 [facility] Lymphocytes/100 WBC Auto (Un sp spec)Ordered By: Guerrero Valerio on 03-01-2025 Lymphocytes/100 WBC (Bld) 3.3 % Low 19-41 [facility] MCV (mean corpuscular volume ) determinationOrdered By: Guerrero Valerio on 03-01-2025 MCV (RBC) [Entitic vol] 87.1 fL 81-99 [facility] Mean corpuscular hemoglobin (MCH) determinationOrdered By: Guerrero Valerio on 03-01-2025 MCH (RBC) [Entitic mass] 30.4 pg 27.0-32.0 [facility] Mean corpuscular hemoglobin concentration (MCHC) determinationOrdered By: Guerrero Valerio on 03-01-2025 MCHC (RBC) [Mass/Vol] 34.9 g/dL 32-36 [facility] Mean platelet volume determi nationOrdered By: Guerrero Valerio on 03-01-2025 Platelet mean volume (Bld) [Entitic vol] 10.3 fL 6.2-12.0 [facility] Monocyte percentageOrdered B y: Guerrero Valerio on 03-01-2025 Monocytes/100 WBC (Bld) 3.8 % 0-10 [facility] Neutrophil percentageOrdered By: Guerrero Valerio on 03-01-2025 Neutrophils/100 WBC (Bld) 92.1 % High 47-70 [facility] Nucleated red blood cell per centageOrdered By: Guerrero Valerio on 03-01-2025 Nucleated RBC/100 WBC (Bld) [Ratio] 0 % 0-5 [facility] Partial Thromboplast Timeon 03-01-2025 aPTT Coag (Bld) [Time] 25.8 s Normal 24.1-36.2 [facility] Comment on above: Performed By: #### L 300.3900, L100.0100, L500.2500, L300.4310, BTS ####[facility] [address] [place], [place], [id number] Platelet countOrdered By: Christophe Valerio on 03-01-2025 Platelets (Bld) [#/Vol] 239 10*3/uL 150-450 [facility] Potassium (Unsp spec) [Mass/ Vol]Ordered By: Guerrero Valerio on 03-01-2025 Potassium [Moles/Vol] 4.2 mmol/L 3.3-5.1 [facility] Prothrombin Time w/INRon INR Coag (PPP) [Relative time] 1.1 {INR} Normal [facility] Comment on above: Performed By: #### L 300.3900, L100.0100, L500.2500, L300.4310, BTS ####[facility] [address] [place], [address] PT Coag (PPP) [Time] 14.9 s Normal 11.7-14.9 [facility] Comment on above: Performed By: #### L 300.3900, L100.0100, L500.2500, L300.4310, BTS ####[facility] [address] [place], [place], [id number] Prothrombin timeOrdered By: Guerrero Valerio on 03-01-2025 PT Coag (PPP) [Time] 14.9 s 11.7-14.9 [facility] RBC Auto (Bld) [#/Vol]Ordere d By: Guerrero Valerio on 03-01-2025 RBC (Bld) [#/Vol] 4.28 10*6/uL 4.2-5.4 [facility] Serum creatinine measurement (mass/volume)Ordered By: Guerrero Valerio on 03-01-2025 Creatinine [Mass/Vol] 0.90 mg/dL 0.70-1.20 [facility] Serum glucose measurement (m ass/volume)Ordered By: Guerrero Valerio on 03-01-2025 Glucose [Mass/Vol] 148 mg/dL High 70-99 [facility] Serum or plasma calcium thomas urement (mass/volume)Ordered By: Guerrero Valerio on 03-01-2025 Calcium [Mass/Vol] 9.2 mg/dL 7.6-11.0 [facility] Serum or plasma urea nitroge n measurement (mass/volume)Ordered By: Guerrero Valerio on 03-01-2025 Urea nitrogen [Mass/Vol] 16 mg/dL 4-19 [facility] Sodium levelOrdered By: Liborio Valerio on 03-01-2025 Sodium [Moles/Vol] 140 mmol/L 133-145 [facility] Type AND Screenon 03-01-2025 Ab SCREEN GEL Negative Normal [facility] Comment on above: Order Comment: S Performed By: #### L 300.3900, L100.0100, L500.2500, L300.4310, BTS ####[facility] [address] [place], [id number] Vitamin D, 25-hydroxyOrdered By: Roro Long on 03-01-2025 Vitamin D 25-Hydroxy 29.9 ng/mL Low 30-100 [facility] Comment on above: Vitamin D StatusDefi ciency: <20 ng/mL (50nmol/L)Insufficiency: 20-30 ng/mL (50-75 nmol/L)Sufficiency: 30-100 ng/mL (75-250 nmol/L)Toxicity: >100 ng/mL (>250 nmol/L) Vitamin D,25 Hydroxyon 03-01 Vitamin D 25-OH 29.9 ng/mL Low 30-100 [facility] Comment on above: Result Comment: Vaishnavi min D StatusDeficiency: <20 ng/mL (50nmol/L)Insufficiency: 20-30 ng/mL (50-75 nmol/L)Sufficiency: 30-100 ng/mL (75-250 nmol/L)Toxicity: >100 ng/mL (>250 nmol/L) Performed By: #### L 506.1001 ####[facility] [address] [place], [address] White blood cell (WBC) count Ordered By: Guerrero Valerio on 03-01-2025 WBC (Bld) [#/Vol] 18.8 10*3/uL High 4.4-11.0 [facility] aPTT Coag (PPP) [Time]Ordere d By: Guerrero Valerio on 03-01-2025 aPTT Coag (Bld) [Time] 25.8 s 24.1-36.2 [facility] CNPNon 02-27-2025 CNPN Telephone (MOODY) ALIZAMICHAELA ([id number]) 1940 F Date Time Provider Department 02/27/25 RENATE MONTGOMERY During your visit today, we recorded the following information about you: Renate Montgomery MSW 02/27/2025 2:27 PM Signed Thomas left message for patient requesting call back to discuss patient home care resource needs. Renate Montgomery MSW 02/27/2025 2:53 PM Signed Thomas spoke with patient daughter Osmany. Osmany noted that her mother is currently living [address] [place] is concerned about mother living by herself. There are cameras set up in apt to keep watch on patient in case of falls. Discussed different social service agencies and services they offer ie. [facility] and [employer]. Thomas provided patient daughter with Lala Huntley phone number for help with looking at memory care options in the area. Sw and daughter also discussed different local memory care options ie. [place], [place], [facility], [facility]. Osmany notes that her mom was not interested in any place that "looks like a fci." Discussed the different options above and layout and levels of care they offer. Osmany notes that she is going to give Yuko [facility] to see about her assistance as a retirement advisor looking at level of care memory care options for patient. Osmany has this direct number for further assistance. [...] Of Date: 02/27/2025 (None) Encounter Status:Closed by RENATE MONTGOMERY on 03/02/25 Normal [facility] Bacteria Ur Culton 5 Bacteria identified Cx Nom (U) CULTURE, URINE: Mixed microbiota, including predominantly: ORGANISM ID: 1 >=100,000 CFU/ml Escherichia coli ORGANISM ID: 1 (ESCHERICHIA COLI) ------ ANTIBIOTIC INTERPRETATION [place]LTON STATUS REFERENCE RANGE ------ Ampicillin S 8 F Susceptible <=8 , [...] , Intermediate >32 , Resistant >64 Abnormal [facility] Comment on above: Performed By: #### 6 30-4 ####[facility] LABCLIA [id number] JES BROWN [address] OF [facility] CNOVon 02-19-2025 CNOV Office Visit (UCWSTR ) MICHAELA BRANDT ([id number]) 1940 F Date Time Provider Department 02/19/25 11:30 AM [facility] [place] [facility] During your visit today, we recorded the following information about you: Temperature Pulse Respiration Blood pressure 98.7 degrees 70/minute 22/minute 145/79 Weight 57 kg Walt Robles APRN.INSIGHT DIRECTOR 02/19/2025 12:00 PM Signed [facility] [...] history is provided by the patient. No creche attendant was used. Review of Systems Constitutional: [...] be changed please change accordingly. Walt Robles APRN.[facility] MDM Procedures Allergies As of Date: 02/19/2025 (No Known Allergies) Date Reviewed: 02/19/2025 Reviewed by: Carolina Hastings LPN - Fully Assessed Reason for Visit: Urinary Problem [252] Cmt: Brain fog, 1 day Primary Visit Diagnosis:Recurrent UTI (urinary tract infection) [N39.0] Order(s):UA DIP, URINE (POC) [9522877] Order #: [id number]. #:[id number] cephALEXin (KEFLEX) 500 mg capsuleTake 1 capsule [...] 0.5 mg (more content not included)... Normal [facility] 02-19-2025 [facility] Telephone ([facility]) ALIZAMICHAELA ([id number]) 1940 F Date Time Provider Department 02/19/25 [facility] [facility] [facility] During your visit today, we recorded [...] [R35.0] Order(s):BACTERIAL CULTURE, URINE [SQURCUL] Order #: [id number] Prescriptions as of 02/19/2025 - cephALEXin (KEFLEX) [...] Status:Closed by COLTEN GREER on 02/19/25 Normal [facility] UA DIP, URINE (POC)on 2024 BILIRUBIN UA (POCT) Negative Negative [facility] CLARITY UA (POCT) Clear [facility] COLOR UA (POCT) Dark yellow [facility] GLUCOSE UA (POCT) Negative Negative mg/dL [facility] Hemoglobin Ql (U) Trace-intact Abnormal Negative [facility] Interpretation and review of laboratory results Abnormal [facility] KETONE UA (POCT) Negative Negative mg/dL [facility] LEUKOCYTES UA (POCT) Trace Abnormal Negative [facility] NITRITE UA (POCT) Positive Abnormal Negative [facility] PH UA (POCT) 5.5 4.5 - 8.0 [facility] Protein Ql (U) Negative Negative mg/dL [facility] SPECIFIC GRAVITY UA (POCT) 1.025 1.005 - 1.030 [facility] UROBILINOGEN UA (POCT) 1 Supriya l E.U./dL [facility] Location:[facility], [address] [place] [address], [place], [place], [id number] [place] [address] POINT OF CARE [facility] CNOVon 02-18-2025 CNOV Office Visit (INTMWS ) MICHAELA BRANDT ([id number]) 1940 F Date Time Provider Department 02/18/25 10:20 AM LAWRENCE SALINAS [facility] During your visit today, we recorded the following information about you: Pulse Respiration Blood pressure Weight 74/minute 16/minute 122/80 57.6 kg Lawrence Salinas APRN.INSIGHT DIRECTOR 02/18/2025 4:19 PM Signed CC: Patient presents [...] 02/28/2020 Influenza Vaccine(1) due on 07/20/2024 Covid-19 Vaccine(6 - 2023- season) due on 07/20/2024 Advance [...] symptoms occur. Patient agreeable to treatment plan. Lawrence Salinas APRN.INSIGHT DIRECTOR Medical Decision Making: Problems: Minimal: Self-limited or [...] of rig (more content not included)... Normal [facility] TSH SerPl-aCncon 02-17-2025 TSH Qn 1.190 m[IU]/L Normal 0.270-4.200 [facility] Comment on above: Order Comment: Speci men Type: BLOOD SPECIMENOrdering Facility: [facility] Address: [address] [place] [address] Performed By: #### 3 016-3 ####[facility] LABCLIA [id number] [place] [address] [place] CNOVon 02-04-2025 CNOV Office Visit (GERIWR ) MICHAELA BRANDT ([id number]) 1940 F Date Time Provider Department 02/04/25 11:30 AM ANAID SANTIAGO During your visit today, we recorded the following information about you: Pulse Blood pressure Weight 67/minute 131/80 57.4 kg Anaid Santiago MD 02/04/2025 11:58 AM Signed We [...] your continued efforts in managing your health. Anaid Santiago MD 02/04/2025 3:49 PM Signed Reason [...] season) Advance Directive Discussion@ Review Of Systems Ears/Nose/Mouth/Throa t: (+) hearing changes (plugged ears) Gastrointestinal: (+) [...] NECK: Suppl (more content not included)... Normal [facility] MR Brain WO contraston 01-24 * * *Final Report* * * DATE OF EXAM: Jan 24 2025 2:05PM [facility] 3015 - MRI BRAIN W QUANT WO IVCON / PROCEDURE REASON: Cognitive impairment, mild, so stated * * * * Physician Interpretation * * * * EXAMINATION: MRI 3D BRAIN QUANT, MRI BRAIN W QUANT WO IVCON CLINICAL HISTORY: TECHNIQUE: Axial ISREAL FLAIR, ISREAL T2, diffusion and susceptibility weighted imaging without contrast, using the ADNI dementia protocol and 3-D post-processing using the [employer] software at an independent workstation with concurrent [...] Prior intracranial hemorrhage: Parenchymal microhemorrhages: 0 Other (siderosis/macrohemor rhages (>10mm): Not Applicable Amyloid Related Imaging Abnormalities: [...] 1.7; Will 2008; also Balbir 2010). [facility] Provider, [facility] Mack Langley - 01/24/2025 * * *Final Report* * * DATE OF EXAM: Jan 24 2025 2:05PM [facility] 3015 - MRI BRAIN W QUANT WO IVCON / PROCEDURE REASON: Cognitive impairment, mild, so stated * * * * Physician Interpretation * * * * EXAMINATION: MRI 3D BRAIN QUANT, MRI BRAIN W QUANT WO IVCON CLINICAL HISTORY: TECHNIQUE: Axial ISREAL FLAIR, ISREAL T2, diffusion and susceptibility weighted imaging without contrast, using the ADNI dementia protocol and 3-D post-processing using the [employer] software at an independent workstation with concurrent [...] Prior intracranial hemorrhage: Parenchymal microhemorrhages: 0 Other (siderosis/macrohemor rhages (>10mm): Not Applicable Amyloid Related Imaging Abnormalities: [...] = Focal Lesions 2 = Beginning of [place] 3 = Diffuse Involvement of Entire Region [...] 100] (%). Age-matched (more content not included)... [facility] MR Unspecified body region 3 D post processingon 01-24-2025 * * *Final Report* * * DATE OF EXAM: Jan 24 2025 2:05PM [facility] 7867 - MRI 3D BRAIN QUANT / PROCEDURE REASON: Cognitive impairment, mild, so stated * * * * Physician Interpretation * * * * EXAMINATION: MRI 3D BRAIN QUANT, MRI BRAIN W QUANT WO IVCON CLINICAL HISTORY: TECHNIQUE: Axial ISREAL FLAIR, ISREAL T2, diffusion and susceptibility weighted imaging without contrast, using the ADNI dementia protocol and 3-D post-processing using the [employer] software at an independent workstation with concurrent [...] Prior intracranial hemorrhage: Parenchymal microhemorrhages: 0 Other (siderosis/macrohemor rhages (>10mm): Not Applicable Amyloid Related Imaging Abnormalities: [...] 1.7; Will 2008; also Balbir 2010). [facility] Provider, Johnnie Langley - 01/24/2025 * * *Final Report* * * DATE OF EXAM: Jan 24 2025 2:05PM [facility] 7867 - MRI 3D BRAIN QUANT / PROCEDURE REASON: Cognitive impairment, mild, so stated * * * * Physician Interpretation * * * * EXAMINATION: MRI 3D BRAIN QUANT, MRI BRAIN W QUANT WO IVCON CLINICAL HISTORY: TECHNIQUE: Axial ISREAL FLAIR, ISREAL T2, diffusion and susceptibility weighted imaging without contrast, using the ADNI dementia protocol and 3-D post-processing using the [employer] software at an independent workstation with concurrent [...] Prior intracranial hemorrhage: Parenchymal microhemorrhages: 0 Other (siderosis/macrohemor rhages (>10mm): Not Applicable Amyloid Related Imaging Abnormalities: [...] = Focal Lesions 2 = Beginning of [place] 3 = Diffuse Involvement of Entire Region [...] (%). Age-matched referenc (more content not included)... [facility] MRI 3D BRAIN QUANTon 025 MRI 3D BRAIN QUANT * * *Final Report* * * DATE OF EXAM: Jan 24 2025 2:05PM [facility] 7867 - MRI 3D BRAIN QUANT / PROCEDURE REASON: Cognitive impairment, mild, so stated * * * * Physician Interpretation * * * * EXAMINATION: MRI 3D BRAIN QUANT, MRI BRAIN W QUANT WO IVCON CLINICAL HISTORY: TECHNIQUE: Axial ISREAL FLAIR, ISREAL T2, diffusion and susceptibility weighted imaging without contrast, using the ADNI dementia protocol and 3-D post-processing using the [employer] software at an independent workstation with concurrent [...] Prior intracranial hemorrhage: Parenchymal microhemorrhages: 0 Other (siderosis/macrohemor rhages (>10mm): Not Applicable Amyloid Related Imaging Abnormalities: [...] = Focal Lesions 2 = Beginning of [place] 3 = Diffuse Involvement of Entire Region [...] impairment, and elderly controls. Neuroimage 43;59 (2008). Davidhlund et al. A New Rating Scale for Age-Related White Matter Changes Applicable to MRI and CT. Stroke. 32:1318 (2001). * Asymmetry index defined as difference between left and right volumes divided by mean or [(L-R/Mean) x 100] (%). Age-matched reference charts measure total hippocampal volume (% of intracranial volume). See results from the analysis charts for details. Brake Press Operator: MINDY Transcribe Date/Time: Jan 24 (more content not included)... Normal [facility] MRI BRAIN W QUANT WO IVCONon 01-24-2025 MRI BRAIN W QUANT WO IVCON * * *Final Report* * * DATE OF EXAM: Jan 24 2025 2:05PM [facility] 3015 - MRI BRAIN W QUANT WO IVCON / PROCEDURE REASON: Cognitive impairment, mild, so stated * * * * Physician Interpretation * * * * EXAMINATION: MRI 3D BRAIN QUANT, MRI BRAIN W QUANT WO IVCON CLINICAL HISTORY: TECHNIQUE: Axial ISREAL FLAIR, ISREAL T2, diffusion and susceptibility weighted imaging without contrast, using the ADNI dementia protocol and 3-D post-processing using the [employer] software at an independent workstation with concurrent [...] Prior intracranial hemorrhage: Parenchymal microhemorrhages: 0 Other (siderosis/macrohemor rhages (>10mm): Not Applicable Amyloid Related Imaging Abnormalities: [...] = Focal Lesions 2 = Beginning of [place] 3 = Diffuse Involvement of Entire Region [...] results from the analysis charts for details. Brake Press Operator: MINDY Transcribe Date/Time (more content not included)... [facility] No Panel Informationon 01-24 IMPRESSION: * [...] = Focal Lesions 2 = Beginning of [place] 3 = Diffuse Involvement of Entire Region [...] results from the analysis charts for details. Brake Press Operator: PSCB Transcribe Date/Time: Jan 24 2025 2:14P Dictated by : PUJA KIM MD This examination was interpreted and the report reviewed and electronically signed by: PUJA KIM MD on Jan 24 2025 2:29PM [facility] Radiology Study observation (narrative) [facility] No Panel InformationOrdered By: [facility] Provider on 01-24-2025 [facility] Urine Cultureon 01-19-2025 [facility] Normal [facility] Comment on above: Performed By: #### M 100.0859 ####[facility] [address] [place], [place], [id number] Absolute lymphocyte countOrd ered By: Dominik Galvan on 01-17-2025 Lymphocytes Auto (Unsp spec) [#/Vol] 1.42 10*3/uL 0.83-4.51 [facility] Absolute neutrophil countOrd ered By: Dominik Galvan on 01-17-2025 Neutrophils (Bld) [#/Vol] 10.3 10*3/uL High 2.0-7.7 [facility] Amorphous sediment detection in urine sediment by light microscopyOrdered By: Dominik Galvan on 01-17-2025 Amorphous sediment LM Ql (Urine sed) 1+ URATE [facility] Automated lymphocyte count a s percentage of total leukocytesOrdered By: Dominik Galvan on 01-17-2025 Lymphocytes/100 WBC Auto (Unsp spec) 11.0 % Low 19-41 [facility] BUN/creatinine ratioOrdered By: Dominik Galvan on 01-17-2025 Urea nitrogen/Creatinine [Mass ratio] 20.5 mg/mg High 10-20 [facility] Basophil percentageOrdered B y: Dominik Galvan on 01-17-2025 Basophils/100 WBC (Bld) 0.4 % 0-1 [facility] Bilirubin Test strip Ql (U)O rdered By: Dominik Galvan on 01-17-2025 Bilirubin Ql (U) Negative Negative [facility] Bilirubin, totalOrdered By: Dominik Galvan on 01-17-2025 Bilirubin [Mass/Vol] 1.24 mg/dL 0.00-1.30 [facility] Brain/Head without Contrasto n 01-17-2025 Brain/Head without Contrast Normal [facility] CBC W/Diff, Automatedon 03 Absolute Lymph 1.42 X10 3/uL Normal 0.83-4.51 [facility] Comment on above: Performed By: #### L 500.4050, L100.0100 ####[facility] [address] [place], [address] Absolute Neut 10.3 X10 3/uL High 2.0-7.7 [facility] Comment on above: Performed By: #### L 500.4050, L100.0100 ####[facility] [address] [place], [address] Basophils/100 WBC (Bld) 0.4 % Normal 0-1 [facility] Comment on above: Performed By: #### L 500.4050, L100.0100 ####[facility] [address] [place], [address] Eosinophils/100 WBC (Bld) 1.0 % Normal 0-5 [facility] Comment on above: Performed By: #### L 500.4050, L100.0100 ####[facility] [address] [place], [address] Erythrocyte distribution width (RBC) [Ratio] 13.3 % Normal 11.6-14.6 [facility] Comment on above: Performed By: #### L 500.4050, L100.0100 ####[facility] [address] [place], [address] Hematocrit (Bld) [Volume fraction] 35.9 % Low 37-47 [facility] Comment on above: Performed By: #### L 500.4050, L100.0100 ####[facility] [address] [place], [address] Hemoglobin (Bld) [Mass/Vol] 12.3 g/dL Normal 12.0-15.0 [facility] Comment on above: Performed By: #### L 500.4050, L100.0100 ####[facility] [address] [place], [address] IG% 0.400 Normal 0.0-0.9 [facility] Comment on above: Result Comment: IG% - Immature Granulocytes (promyelocytes, myelocytes andmetamyelocytes) > 1% indicates that a LEFT SHIFT is Present. Performed By: #### L 500.4050, L100.0100 ####[facility] [address] [place], [address] Lymphocytes/100 WBC (Bld) 11.0 % Low 19-41 [facility] Comment on above: Performed By: #### L 500.4050, L100.0100 ####[facility] [address] [place], [address] MCH (RBC) [Entitic mass] 29.9 pg Normal 27.0-32.0 [facility] Comment on above: Performed By: #### L 500.4050, L100.0100 ####[facility] [address] [place], [address] MCHC (RBC) [Mass/Vol] 34.3 g/dL Normal 32-36 [facility] Comment on above: Performed By: #### L 500.4050, L100.0100 ####[facility] [address] [place], [address] MCV (RBC) [Entitic vol] 87.3 fL Normal 81-99 [facility] Comment on above: Performed By: #### L 500.4050, L100.0100 ####[facility] [address] [place], [address] Monocytes/100 WBC (Bld) 8.1 % Normal 0-10 [facility] Comment on above: Performed By: #### L 500.4050, L100.0100 ####[facility] [address] [place], [address] Neutrophils/100 WBC (Bld) 79.1 % High 47-70 [facility] Comment on above: Performed By: #### L 500.4050, L100.0100 ####[facility] [address] [place], [address] Nucleated RBC (Bld) [#/Vol] 0 10*3/uL Normal 0-5 [facility] Comment on above: Performed By: #### L 500.4050, L100.0100 ####[facility] [address] [place], [address] Platelet mean volume (Bld) [Entitic vol] 10.5 fL Normal 6.2-12.0 [facility] Comment on above: Performed By: #### L 500.4050, L100.0100 ####[facility] [address] [place], [address] Platelets (Bld) [#/Vol] 169 10*3/uL Normal 150-450 [facility] Comment on above: Performed By: #### L 500.4050, L100.0100 ####[facility] [address] [place], [address] RBC (Bld) [#/Vol] 4.11 10*6/uL Low 4.2-5.4 [facility] Comment on above: Performed By: #### L 500.4050, L100.0100 ####[facility] [address] [place], [address] RDW SD 42.1 fl Normal 35.1-43.9 [facility] Comment on above: Performed By: #### L 500.4050, L100.0100 ####[facility] [address] [place], [address] WBC (Bld) [#/Vol] 13.0 10*3/uL High 4.4-11.0 [facility] Comment on above: Performed By: #### L 500.4050, L100.0100 ####[facility] [address] [place], [address] Carbon dioxide measurementOr dered By: Dominik Galvan on 01-17-2025 CO2 [Moles/Vol] 25.5 mmol/L 22.0-29.0 [facility] Chloride measurementOrdered By: Dominik Galvan on 01-17-2025 Chloride [Moles/Vol] 103 mmol/L 96-108 [facility] Comprehensive Metabolic Prof ilon 01-17-2025 Albumin [Mass/Vol] 4.2 g/dL Normal 3.4-4.8 [facility] Comment on above: Performed By: #### L 500.4050, L100.0100 ####[facility] [address] [place], [address] Albumin/Globulin [Mass ratio] 1.4 {ratio} Normal 0.9-2.4 [facility] Comment on above: Performed By: #### L 500.4050, L100.0100 ####[facility] [address] [place], [address] ALK PHOS 75 U/L Normal 35-104 [facility] Comment on above: Performed By: #### L 500.4050, L100.0100 ####[facility] [address] [place], [address] ALT [Catalytic activity/Vol] 9 U/L Normal <=34 [facility] Comment on above: Performed By: #### L 500.4050, L100.0100 ####[facility] [address] [place], [address] Anion gap [Moles/Vol] 12 mmol/L Normal 5-15 [facility] Comment on above: Performed By: #### L 500.4050, L100.0100 ####[facility] [address] [place], [address] AST [Catalytic activity/Vol] 19 U/L Normal <=31 [facility] Comment on above: Performed By: #### L 500.4050, L100.0100 ####[facility] [address] [place], [address] Bilirubin [Mass/Vol] 1.24 mg/dL Normal 0.00-1.30 [facility] Comment on above: Performed By: #### L 500.4050, L100.0100 ####[facility] [address] [place], [address] BUN/CRE 20.5 RATIO High 10-20 [facility] Comment on above: Performed By: #### L 500.4050, L100.0100 ####[facility] [address] [place], [address] Calcium [Mass/Vol] 9.7 mg/dL Normal 7.6-11.0 [facility] Comment on above: Performed By: #### L 500.4050, L100.0100 ####[facility] [address] [place], [address] Chloride [Moles/Vol] 103 mmol/L Normal 96-108 [facility] Comment on above: Performed By: #### L 500.4050, L100.0100 ####[facility] [address] [place], [address] CO2 [Moles/Vol] 25.5 mmol/L Normal 22.0-29.0 [facility] Comment on above: Performed By: #### L 500.4050, L100.0100 ####[facility] [address] [place], [address] Creatinine [Mass/Vol] 0.92 mg/dL Normal 0.70-1.20 [facility] Comment on above: Performed By: #### L 500.4050, L100.0100 ####[facility] [address] [place], [address] GFR/1.73 sq M.predicted among non-blacks MDRD (S/P/Bld) [Vol rate/Area] 61 mL/min/{1.73_m2} Normal >60 [facility] Comment on above: Result Comment: mL/m in/1.73m2 CKD-EPI Creatinine Equation (2020) Performed By: #### L 500.4050, L100.0100 ####[facility] [address] [place], [address] Globulin (S) [Mass/Vol] 3.0 g/dL Normal 2.2-4.2 [facility] Comment on above: Performed By: #### L 500.4050, L100.0100 ####[facility] [address] [place], [address] Glucose [Mass/Vol] 113 mg/dL High 70-99 [facility] Comment on above: Performed By: #### L 500.4050, L100.0100 ####[facility] [address] [place], [address] Potassium [Moles/Vol] 3.9 mmol/L Normal 3.3-5.1 [facility] Comment on above: Performed By: #### L 500.4050, L100.0100 ####[facility] [address] [place], [address] Sodium [Moles/Vol] 140 mmol/L Normal 133-145 [facility] Comment on above: Performed By: #### L 500.4050, L100.0100 ####[facility] [address] [place], [address] T PROT 7.2 g/dL Normal 5.9-8.4 [facility] Comment on above: Performed By: #### L 500.4050, L100.0100 ####[facility] [address] [place], [address] Urea nitrogen [Mass/Vol] 19 mg/dL Normal 4-19 [facility] Comment on above: Performed By: #### L 500.4050, L100.0100 ####[facility] [address] [place], [address] Emergency Department Summary on 01-17-2025 Emergency Department Summary Normal [facility] Eosinophil percentageOrdered By: Dominik Galvan on 01-17-2025 Eosinophils/100 WBC (Bld) 1.0 % 0-5 [facility] Epithelial cells.squamous LM Ql (Urine sed)Ordered By: Dominik Galvan on 01-17-2025 Epithelial cells.squamous LM.HPF (Urine sed) [#/Area] 0 /[HPF] 5-10 [facility] Erythrocyte distribution wid th (RBC) [Ratio]Ordered By: Dominik Galvan on 01-17-2025 Erythrocyte distribution width (RBC) [Entitic vol] 42.1 fL 35.1-43.9 [facility] Erythrocyte distribution wid th ratioOrdered By: Dominik Galvan on 01-17-2025 Erythrocyte distribution width (RBC) [Ratio] 13.3 % 11.6-14.6 [facility] Erythrocyte distribution wid th standard deviationOrdered By: Dominik Galvan on 01-17-2025 Erythrocyte distribution width (RBC) [Ratio] 42.1 fl 35.1-43.9 [facility] GFR/1.73 sq M.predicted arti g non-blacks MDRD (S/P/Bld) [Vol rate/Area]Ordered By: Dominik Galvan on 01-17-2025 Estimated GFR (MDRD) Non-Af Amer 61 >60 [facility] Comment on above: mL/min/1.73m2 CKD-EP I Creatinine Equation (2020) Glomerular filtration rate ( GFR) estimation/1.73 sq m using serum, plasma, or whole bOrdered By: Dominik Galvan on 01-17-2025 GFR/1.73 sq M.predicted among non-blacks MDRD (S/P/Bld) [Vol rate/Area] 61 mL/min/{1.73_m2} >60 [facility] Comment on above: mL/min/1.73m2 CKD-EP I Creatinine Equation (2020) Glucose Ql (U)Ordered By: Octavio Galvan on 01-17-2025 Urine Glucose (UA) Normal mg/dl Normal [facility] Hematocrit Auto (Bld) [Volum e fraction]Ordered By: Dominik Galvan on 01-17-2025 Hematocrit (Bld) [Volume fraction] 35.9 % Low 37-47 [facility] Hemoglobin measurementOrdere d By: Dominik Galvan on 01-17-2025 Hemoglobin (Bld) [Mass/Vol] 12.3 g/dL 12.0-15.0 [facility] Immature granulocytes/100 WB C Auto (Bld)Ordered By: Dominik Galvan on 01-17-2025 Immature granulocytes/100 WBC (Bld) 0.400 % 0.0-0.9 [facility] Comment on above: IG% - Immature Granu locytes (promyelocytes, myelocytes and metamyelocytes) > 1% indicates that a LEFT SHIFT is Present. Influenza virus A and B and SARS-CoV-2 (COVID-19) and Respiratory syncytial virus RNAOrdered By: Dominik Galvan on 01-17-2025 SARS-CoV-2 (COVID-19) RNA DANIEL+probe Ql (Unsp spec) [facility] Ketones Test strip Ql (U)Ord ered By: Dominik Galvan on 01-17-2025 Ketones Ql (U) Negative Negative [facility] Laboratory - Chemistry and C hemistry - challengeOrdered By: Dominik Galvan on 01-17-2025 AST [Catalytic activity/Vol] 19 U/L <32 [facility] Lymphocytes Auto (Unsp spec) [#/Vol]Ordered By: Dominik Galvan on 01-17-2025 Lymphocytes (Bld) [#/Vol] 1.42 10*3/uL 0.83-4.51 [facility] Lymphocytes/100 WBC Auto (Un sp spec)Ordered By: Dominik Galvan on 01-17-2025 Lymphocytes/100 WBC (Bld) 11.0 % Low 19-41 [facility] M100.678on 01-17-2025 M100.678 Pending SARS-CoV-2 (COVID 19) Negative INFLUENZA A Negative INFLUENZA B Negative RSV PCR Negative Normal [facility] Comment on above: Performed By: #### L 400.0001, M100.678 ####[facility] [address] [place], [address] MCV (mean corpuscular volume ) determinationOrdered By: Dominik Galvan on 01-17-2025 MCV (RBC) [Entitic vol] 87.3 fL 81-99 [facility] Mean corpuscular hemoglobin (MCH) determinationOrdered By: Dominik Galvan on 01-17-2025 MCH (RBC) [Entitic mass] 29.9 pg 27.0-32.0 [facility] Mean corpuscular hemoglobin concentration (MCHC) determinationOrdered By: Dominik Galvan on 01-17-2025 MCHC (RBC) [Mass/Vol] 34.3 g/dL 32-36 [facility] Mean platelet volume determi nationOrdered By: Dominik Galvan on 01-17-2025 Platelet mean volume (Bld) [Entitic vol] 10.5 fL 6.2-12.0 [facility] Microscopic analysis of urin e for red blood cells (RBC)Ordered By: Dominik Galvan on 01-17-2025 Microscopic analysis of urine for red blood cells (RBC) 0-5 SEEN /hpf 0-5 [facility] Urine RBC 0-5 SEEN /hpf 0-5 [facility] Monocyte percentageOrdered B y: Dominik Galvan on 01-17-2025 Monocytes/100 WBC (Bld) 8.1 % 0-10 [facility] Mucus LM Ql (Urine sed)Order ed By: Dominik Galvan on 01-17-2025 Mucus Ql (Urine sed) 0 SEEN /hpf [facility] Neutrophil percentageOrdered By: Dominik Galvan on 01-17-2025 Neutrophils/100 WBC (Bld) 79.1 % High 47-70 [facility] Nitrite Test strip Ql (U)Ord ered By: Dominik Galvan on 01-17-2025 Nitrite Ql (U) Positive High Negative [facility] Nucleated red blood cell per centageOrdered By: Dominik Galvan on 01-17-2025 Nucleated RBC/100 WBC (Bld) [Ratio] 0 % 0-5 [facility] Platelet countOrdered By: Octavio Galvan on 01-17-2025 Platelets (Bld) [#/Vol] 169 10*3/uL 150-450 [facility] Protein Test strip Ql (U)Ord ered By: Dominik Galvan on 01-17-2025 Protein Ql (U) Negative Negative [facility] RBC Auto (Bld) [#/Vol]Ordere d By: Dominik Galvan on 01-17-2025 RBC (Bld) [#/Vol] 4.11 10*6/uL Low 4.2-5.4 [facility] Serum creatinine measurement (mass/volume)Ordered By: Dominik Galvan on 01-17-2025 Creatinine [Mass/Vol] 0.92 mg/dL 0.70-1.20 [facility] Serum globulin measurementOr dered By: Dominik Galvan on 01-17-2025 Globulin (S) [Mass/Vol] 3.0 g/dL 2.2-4.2 [facility] Serum glucose measurement (m ass/volume)Ordered By: Dominik Galvan on 01-17-2025 Glucose [Mass/Vol] 113 mg/dL High 70-99 [facility] Serum or plasma alanine tillman otransferase (ALT) measurementOrdered By: Dominik Galvan on 01-17-2025 ALT [Catalytic activity/Vol] 9 U/L <35 [facility] Serum or plasma albumin thomas urement (mass/volume)Ordered By: Dominik Galvan on 01-17-2025 Albumin [Mass/Vol] 4.2 g/dL 3.4-4.8 [facility] Serum or plasma albumin/glob ulin mass ratioOrdered By: Dominik Galvan on 01-17-2025 Albumin/Globulin [Mass ratio] 1.4 {ratio} 0.9-2.4 [facility] Serum or plasma alkaline mariah sphatase measurementOrdered By: Dominik Galvan on 01-17-2025 ALP [Catalytic activity/Vol] 75 U/L 35-104 [facility] Serum or plasma anion gap de termination (moles/volume)Ordered By: Dominik Galvan on 01-17-2025 Anion gap [Moles/Vol] 12 mmol/L 5-15 [facility] Serum or plasma calcium thomas urement (mass/volume)Ordered By: Dominik Galvan on 01-17-2025 Calcium [Mass/Vol] 9.7 mg/dL 7.6-11.0 [facility] Serum or plasma potassium me asurementOrdered By: Dominik Galvan on 01-17-2025 Potassium [Moles/Vol] 3.9 mmol/L 3.3-5.1 [facility] Serum or plasma sodium measu rement (moles/volume)Ordered By: Dominik Galvan on 01-17-2025 Sodium [Moles/Vol] 140 mmol/L 133-145 [facility] Serum or plasma urea nitroge n measurement (mass/volume)Ordered By: Dominik Galvan on 01-17-2025 Urea nitrogen [Mass/Vol] 19 mg/dL 4-19 [facility] Squamous epithelial cells de tection in urine sediment by light microscopyOrdered By: Dominik Galvan on 01-17-2025 Epithelial cells.squamous LM Ql (Urine sed) 0-5 SEEN /hpf - [facility] Total proteinOrdered By: Shanna Galvan on 01-17-2025 Protein [Mass/Vol] 7.2 g/dL 5.9-8.4 [facility] Urinalysis, Completeon 01-17 AMORPHOUS 1+ URATE Normal [facility] Comment on above: Order Comment: SHAKA TER SPECIMEN Performed By: #### L 400.0001, M100.678 ####[facility] [address] [place], [address] BACTERIA 3+ /hpf Normal None Seen [facility] Comment on above: Order Comment: SHAKA TER SPECIMEN Performed By: #### L 400.0001, M1.678 ####[facility] [address] [place], [address] EPI,SQUAMOUS 0-5 SEEN Normal 5- [facility] Comment on above: Order Comment: SHAKA TER SPECIMEN Performed By: #### L 400.0001, M100.678 ####[facility] [address] [place], [address] RBC 0-5 SEEN Normal 0-5 [facility] Comment on above: Order Comment: SHAKA TER SPECIMEN Performed By: #### L 400.0001, M100.678 ####[facility] [address] [place], [address] WBC 0-5 SEEN Normal 0-5 [facility] Comment on above: Order Comment: SHAKA TER SPECIMEN Performed By: #### L 400.0001, M100.678 ####[facility] [address] [place], [address] Mucus Ql (Urine sed) 0 SEEN Normal [facility] Comment on above: Order Comment: [facility] SPECIMEN Performed By: #### L 400.0001, M100.678 ####[facility] [address] [place], [address] Urine blood detectionOrdered By: Dominik Galvan on 01-17-2025 Urine Occult Blood 25 /ul High Negative [facility] Urine clarityOrdered By: Shanna Galvan on 01-17-2025 Clarity (U) Sl. Cloudy Clear [facility] Urine color determinationOrd ered By: Dominik Galvan on 01-17-2025 Color (U) Yellow Yellow [facility] Urine cultureOrdered By: Yodit Florence on 01-17-2025 Bacteria identified Cx Nom (U) Klebsiella pneumoniae sp pneum Abnormal [facility] Urine glucose detectionOrder ed By: Dominik Galvan on 01-17-2025 Glucose Ql (U) Normal mg/dl Normal [facility] Urine leukocyte esterase det ection by dipstickOrdered By: Dominik Galvan on 01-17-2025 Leukocyte esterase Test strip Ql (U) 25 /ul High Negative [facility] Urine pHOrdered By: Dominik oliveira on 01-17-2025 pH (U) 6.5 [pH] 5.0 - 8.0 [facility] Urine sediment bacteria coun t by microscopy (number/high power field)Ordered By: Dominik Galvan on 01-17-2025 Bacteria LM.HPF (Urine sed) [#/Area] 3 /[HPF] None Seen [facility] Urine specific gravity measu rementOrdered By: Dominik Galvan on 01-17-2025 Specific gravity (U) [Rel density] 1.015 1.002-1.030 [facility] Urine urobilinogen measureme ntOrdered By: Dominik Galvan on 01-17-2025 Urobilinogen Ql (U) 4 mg/dl High Normal [facility] Urobilinogen Ql (U)Ordered B y: Dominik Galvan on 01-17-2025 Urobilinogen (U) [Mass/Vol] 4 mg/dL High Normal [facility] White blood cell (WBC) count Ordered By: Dominik Galvan on 01-17-2025 WBC (Bld) [#/Vol] 13.0 10*3/uL High 4.4-11.0 [facility] White blood cell countOrdere d By: Dominik Galvan on 01-17-2025 Urine WBC 0-5 SEEN /hpf 0-5 [facility] White blood cell count 0-5 SEEN /hpf 0-5 [facility] CNOVon 12-23-2024 CNOV Office Visit (UROLWS ) MICHAELA BRANDT ([id number]) 1940 F Date Time Provider Department 12/23/24 10:00 AM FREDDY BALTAZAR During your visit today, we recorded the following information about you: Temperature Pulse Respiration Blood pressure 97.4 degrees 80/minute 12/minute 144/64 Weight 59.9 kg Freddy Baltazar PA-C 12/23/2024 3:21 PM Addendum FOR[facility]LY [facility], [facility] [place] [facility] NEW PATIENT CLINIC NOTE (F) SERVICE DATE: December 23, 2024 NAME: Michaela Brandt GENDER: female CHIEF COMPLAINT: History of Urinary Retention establishing with Urology HISTORY OF PRESENT ILLNESS: iMchaela Brandt is a 84 year old female [...] SKIN: NO VARICOSE VEINS, RASH, ABNORMAL ITCHING HEME/LYMPH/IMMUNE:Neg ative for prolonged bleeding, bruising easily or swollen [...] Clear PRO (more content not included)... Normal [facility] Markus 12-23-2024 CNPN Telephone (UROLWS) MICHAELA BRANDT ([id number]) 1940 F Date Time Provider Department 12/23/24 FREDDY BALTAZAR During your visit today, we recorded the following information about you: Devin Crespo LPN 12/23/2024 4:46 PM Signed Faxed signed Authorization to Disclose Health Information to [facility] to office of Dr. Ovalle for urological records. RAMIREZ Valdes Kimberly, LPN 12/25/2024 12:50 PM Signed Received one lab from [facility] via [employer] [facility]. Uploaded to [employer] via [employer]. Devin Crespo LPN Allergies As of Date: 12/23/2024 (No Known Allergies) Date Reviewed: 12/23/2024 Reviewed by: Devin Crespo LPN - Fully Assessed Reason for [...] Of Date: 12/23/2024 (None) Encounter Status:Closed by DEVIN CRESPO on 12/25/24 Normal [facility] UA DIP, URINE (POC)on 2024 BILIRUBIN UA (POCT) Negative Negative [facility] CLARITY UA (POCT) Clear [facility] COLOR UA (POCT) Yellow [facility] GLUCOSE UA (POCT) Negative Negative mg/dL [facility] Hemoglobin Ql (U) Trace-intact Abnormal Negative [facility] Interpretation and review of laboratory results Abnormal [facility] KETONE UA (POCT) Negative Negative mg/dL [facility] LEUKOCYTES UA (POCT) Trace Abnormal Negative [facility] NITRITE UA (POCT) Negative Negative [facility] PH UA (POCT) 5.0 4.5 - 8.0 [facility] Protein Ql (U) Negative Negative mg/dL [facility] SPECIFIC GRAVITY UA (POCT) >=1.030 1.005 - 1.030 [facility] UROBILINOGEN UA (POCT) 0.2 Supriya l E.U./dL [facility] Location:[facility], [address], [place], [place], [id number] [place] [address] POINT OF CARE [facility] CNOVon 12-10-2024 CNOV Office Visit (GERIWR ) MICHAELA BRANDT ([id number]) 1940 F Date Time Provider Department 12/10/24 12:30 PM ANAID SANTIAGO During your visit today, we recorded the following information about you: Anaid Santiago MD 12/10/2024 5:10 PM Signed [facility] Initial Consult Michaela Brandt is a 84 year old year old female who comes for Comprehensive Geriatric Assessment. Pt accompanied by: daughter Osmany Caregivers involved in care: HPI: This is a 84-year-old woman with a past medical history of Hypothyroidism, chronic urinary retention which needs self cath, 4 times daily, with insomnia and anxiety. She has been having memory issues for a while, and has been getting worse. She moved recently from her daughters house to be over seen by another daughter Osmany. The plan is for her to be renting for a while and try to see if she can manage on her own. They are looking into [facility]. Have cameras installed so they [...] she knows and feels. Just moved to [place] where her daughter lives after needing to sell her 3 story home to allow her to continue to live independently. Last PCP was Ludin Riche[facility] in [facility]. Is now in her own 1 level apartment. Needs assistance with medication dispensing and is needing support to drive her to appointments and to the store. [facility] few times a week as [...] UTIs and followed with a urologist in [place]. Denies abdominal pain, fever, chills, or dark/foul smelling urine. Any Family History of dementia? None that they know of. Are you or your spouse a ? Yes Alzheimer Questionnaire Long-term Memory: Difficulty remembering distant events from the past like childhood, previous employment, wedding: NO Behavioral/personalit y: Withdrawn/Depressed: NO Crying spells: NO Anxious: NO [...] secure location? No Social History: Primary language: Macanese Marital Status: Living situation: Home w/ Family Socially engaged? (participates in activities such as clubs, orthodox, community center, sports, games, visiting friends/relatives, etc?): YES once a week she goes out. Caregiver Ringold and Stress Are your feeling overwhelmed? NO [...] being in the caregiver role? NO B-ADLs: (I=independent,A=assi stance,D=dependent) ?Bathing: A, some over sight. Dressing: A, [...] (EUTHYROX) 50 (more content not included)... Normal [facility] MICHAELA BRANDT ([id number]) 1940 F Date Time Provider Department 12/10/24 ANAID SANTIAGO During your visit today, we recorded the following information about you: Colten Greer MA 12/10/2024 2:11 PM Signed Patient's daughter states that [facility] needs something from Dr. Santiago that its ok for patient to attend but not sure what exactly is needed. Phone call to [facility] for intake to contact our office to see what information they need from us. EVON Wade Mary, LPN 12/12/2024 2:29 PM Signed Called [place] for 2nd time, left message with Intake. To call office back [facility] [phone] Deshawn Lombardo LPN December 12, 2024 2:29 PM Colten Greer MA 12/16/2024 2:34 PM Signed Spoke with Giovanni at [facility]. Once he has seen the patient [...] Encounter Status:Closed by COLTEN GREER on 12/16/24 [facility] Markus 11-21-2024 [facility] Telephone (FAMTajWS) MICHAELA BRANDT ([id number]) 1940 F Date Time Provider Department 11/21/24 LAWRENCE SALINAS During your visit today, we recorded the following information about you: Lawrence Salinas APRN.ARIEL 11/21/2024 9:19 AM Signed White blood count elevated. Any sign of infection? Urinary tract infection? Respiratory concerns? Thank you Lawrence Salinas APRN.Michaela Farr MA 11/21/2024 11:58 AM [...] Of Date: 11/21/2024 (None) Encounter Status:Closed by LAWRENCE SALINAS on 03/30/25 Normal [facility] CBC panel Auto (Bld)on 11-17 Erythrocyte distribution width (RBC) [Ratio] 13.2 % Normal 11.5-15.0 [facility] Comment on above: Order Comment: Speci men Type: BLOOD SPECIMENOrdering Facility: [facility] Address: [address] [place] [address] Performed By: #### 5 8410-2 ####[facility]ITAL[facility] [id number] [address] [place] Hematocrit (Bld) [Volume fraction] 37.7 % Normal 36.0-46.0 [facility] Comment on above: Order Comment: Speci men Type: BLOOD SPECIMENOrdering Facility: [facility] Address: [address] [place] [address] Performed By: #### 5 8410-2 ####[facility]ITALROSANNAA [id number] [place] [address] [place] Hemoglobin (Bld) [Mass/Vol] 13.1 g/dL Normal 11.5-15.5 [facility] Comment on above: Order Comment: Speci men Type: BLOOD SPECIMENOrdering Facility: [facility] [place] Address: [address] [place] [address] Performed By: #### 5 8410-2 ####[facility]ITALSOPHIE [id number] [place] [address] [place] MCH (RBC) [Entitic mass] 30.5 pg Normal 26.0-34.0 [facility] Comment on above: Order Comment: Speci men Type: BLOOD SPECIMENOrdering Facility: [facility] [place] Address: [address] [place] [address] Performed By: #### 5 8410-2 ####[facility] [id number] [address] [place] MCHC (RBC) [Mass/Vol] 34.7 g/dL Normal 30.5-36.0 [facility] Comment on above: Order Comment: Speci men Type: BLOOD SPECIMENOrdering Facility: [facility] [place] Address: [address] [place] [address] Performed By: #### 5 8410-2 ####[facility]ITALROSANNAA [id number] [place] [address] [place] MCV (RBC) [Entitic vol] 87.9 fL Normal 80.0-100.[address] [facility] Comment on above: Order Comment: Speci men Type: BLOOD SPECIMENOrdering Facility: [facility] [place] Address: [address] [place] [address] Performed By: #### 5 8410-2 ####[facility]ITALNCLI [id number] [place] [address] [place] Nucleated RBC (Bld) [#/Vol] 10*3/uL Normal <0.01 [facility] Comment on above: Order Comment: Speci men Type: BLOOD SPECIMENOrdering Facility: [facility] [place] Address: [address] [place] [address] Performed By: #### 5 8410-2 ####[facility]ITALNCAM[facility] [id number] [place] [address] [place] Platelet mean volume (Bld) [Entitic vol] 10.3 fL Normal 9.0-12.7 [facility] Comment on above: Order Comment: Speci men Type: BLOOD SPECIMENOrdering Facility: [facility] [place] Address: [address] [place] [address] Performed By: #### 5 8410-2 ####[facility] [id number] [place] [address] [place] Platelets (Bld) [#/Vol] 176 10*3/uL Normal 150-400 [facility] Comment on above: Order Comment: Speci men Type: BLOOD SPECIMENOrdering Facility: [facility] [place] Address: [address] [place] [address] Performed By: #### 5 8410-2 ####[facility] [id number] [place] [address] [place] RBC (Bld) [#/Vol] 4.29 10*6/uL Normal 3.90-5.20 [facility] Comment on above: Order Comment: Speci men Type: BLOOD SPECIMENOrdering Facility: [facility] [place] Address: [address] [place] [address] Performed By: #### 5 8410-2 ####[facility] [id number] [place] [address] [place] WBC (Bld) [#/Vol] 13.60 10*3/uL High 3.70-11.00 [facility] Comment on above: Order Comment: Speci men Type: BLOOD SPECIMENOrdering Facility: [facility] [place] Address: [address] [place] [address] Performed By: #### 5 8410-2 ####[facility] EDWIGE [id number] [place] [address] [place] Comprehensive metabolic 2000 panelon 11-17-2024 Albumin [Mass/Vol] 4.0 g/dL Normal 3.9-4.9 [facility] Comment on above: Order Comment: Speci men Type: BLOOD SPECIMENOrdering Facility: [facility] [place] Address: [address] [place] [address] Performed By: #### 2 4323-8 ####[facility]ITALROSANNAA [id number] [place] [address] [place] ALP [Catalytic activity/Vol] 78 U/L Normal 34-123 [facility] Comment on above: Order Comment: Speci men Type: BLOOD SPECIMENOrdering Facility: [facility] [place] Address: [address] [place] [address] Performed By: #### 2 4323-8 ####[facility] ELIOLAKESIDEROSANNAA [id number] [place] [address] [place] ALT [Catalytic activity/Vol] 5 U/L Low 7-38 [facility] Comment on above: Order Comment: Speci men Type: BLOOD SPECIMENOrdering Facility: [facility] [place] Address: [address] [place] [address] Performed By: #### 2 4323-8 ####[facility] LIMALIA [id number] [place] [address] [place] Anion gap [Moles/Vol] 14 mmol/L Normal 8-15 [facility] Comment on above: Order Comment: Speci men Type: BLOOD SPECIMENOrdering Facility: [facility] [place] Address: [address] [place] [address] Performed By: #### 2 4323-8 ####[facility] RUPALI MILLTOWNCLIA [id number] [place] [address] [place] AST [Catalytic activity/Vol] 11 U/L Low 13-35 [facility] Comment on above: Order Comment: Speci men Type: BLOOD SPECIMENOrdering Facility: [facility] [place] Address: [address] [place] [address] Performed By: #### 2 4323-8 ####[facility] MILLTOWNCLIA [id number] [place] [address] [place] Bilirubin [Mass/Vol] 1.2 mg/dL Normal 0.2-1.3 [facility] Comment on above: Order Comment: Speci men Type: BLOOD SPECIMENOrdering Facility: [facility] [place] Address: [address] [place] [address] Performed By: #### 2 4323-8 ####[facility] HOSPITALWNCLIA [id number] [place] [address] [place] Calcium [Mass/Vol] 9.3 mg/dL Normal 8.5-10.2 [facility] Comment on above: Order Comment: Speci men Type: BLOOD SPECIMENOrdering Facility: [facility] [place] Address: [address] [place] [address] Performed By: #### 2 4323-8 ####[facility] MILLTOWNCLIA [id number] [place] [address] [place] Chloride [Moles/Vol] 104 mmol/L Normal 98-107 [facility] Comment on above: Order Comment: Speci men Type: BLOOD SPECIMENOrdering Facility: [facility] [place] Address: [address] [place] [address] Performed By: #### 2 4323-8 ####[facility] MILLTOWNCLIA [id number] [place] [address] [place] CO2 [Moles/Vol] 23 mmol/L Normal 22-30 [facility] Comment on above: Order Comment: Speci men Type: BLOOD SPECIMENOrdering Facility: [facility] [place] Address: [address] [place] [address] Performed By: #### 2 4323-8 ####[facility] [id number] [place] [address] [place] Creatinine [Mass/Vol] 0.95 mg/dL Normal 0.58-0.96 [facility] Comment on above: Order Comment: Speci men Type: BLOOD SPECIMENOrdering Facility: [facility] [place] Address: [address] [place] [address] Performed By: #### 2 4323-8 ####[facility] [id number] [place] [address] [place] Creatinine and Glomerular filtration rate.predicted panel (S/P/Bld) 59 mL/min/1.73m??? Low >=60 [facility] Comment on above: Order Comment: Speci men Type: BLOOD SPECIMENOrdering Facility: [facility] [place] Address: [address] [place] [address] Result Comment: Linda mated Glomerular Filtration Rate [...] actual GFR. Performed By: #### 2 4323-8 ####[facility] [id number] [place] [address] [place] Glucose [Mass/Vol] 119 mg/dL High 74-99 [facility] Comment on above: Order Comment: Speci men Type: BLOOD SPECIMENOrdering Facility: [facility] Address: [address] [place] [address] Result Comment: The [place] Diabetes Association (ADA) provides guidance for cutoff [...] Standards of Medical Care in Diabetes 2016, [place] Diabetes Association. Diabetes Care. 2016.39(Suppl 1). Performed By: #### 2 4323-8 ####[facility] [id number] [place] [address] [place] Potassium [Moles/Vol] 3.7 mmol/L Normal 3.7-5.1 [facility] Comment on above: Order Comment: Speci men Type: BLOOD SPECIMENOrdering Facility: [facility] Address: [address] [place] [address] Performed By: #### 2 4323-8 ####[facility] [id number] [place] [address] [place] Protein [Mass/Vol] 6.6 g/dL Normal 6.3-8.0 [facility] Comment on above: Order Comment: Speci men Type: BLOOD SPECIMENOrdering Facility: [facility] [place] Address: [address] [place] [address] Performed By: #### 2 4323-8 ####[facility] [id number] [place] [address] [place] Sodium [Moles/Vol] 141 mmol/L Normal 136-144 [facility] Comment on above: Order Comment: Speci men Type: BLOOD SPECIMENOrdering Facility: [facility] [place] Address: [address] [place] [address] Performed By: #### 2 4323-8 ####[facility] [id number] [place] [address] [place] Urea nitrogen [Mass/Vol] 23 mg/dL High 7- [facility] Comment on above: Order Comment: Speci men Type: BLOOD SPECIMENOrdering Facility: [facility] [place] Address: [address] [place] [address] Performed By: #### 2 4323-8 ####[facility] [id number] [place] [address] [place] Lipid 1996 panelon 4 Cholesterol [Mass/Vol] 176 mg/dL Normal <200 [facility] Comment on above: Order Comment: Speci men Type: BLOOD SPECIMENOrdering Facility: [facility] [place] Address: [address] [place] [address] Result Comment: <200 mg/dL, Desirable 200-239 mg/dL, Borderline high >239 mg/dL, High Performed By: #### 2 4331-1 ####[facility] LABCLIA [id number] [address] STATES OF [facility] [id number] [place] [address] [place]#### 3024-7, 3051-0, 3016-3 ####[facility] LABCLIA [id number] [place] [address] [place] Cholesterol in HDL [Mass/Vol] 52 mg/dL Normal >39 [facility] Comment on above: Order Comment: Speci men Type: BLOOD SPECIMENOrdering Facility: [facility] [place] Address: [address] [place] [address] Result Comment: 40-5 9 mg/dL, Acceptable >59 mg/dL, High: Negative risk factor for coronary heart disease <40 mg/dL, Low: Positive risk factor for coronary heart disease Performed By: #### 2 4331-1 ####[facility] LABCLIA [id number] [address] [id number] [place] [address] [place]#### 3024-7, 3051-0, 3016-3 ####[facility] LABCLIA [id number] [place] [address] [place] Cholesterol in LDL [Mass/Vol] 107 mg/dL High <100 [facility] Comment on above: Order Comment: Speci men Type: BLOOD SPECIMENOrdering Facility: [facility] [place] Address: [address] [place] [address] Result Comment: <100 mg/dL, Optimal 100-129 mg/dL, Near optimal/above optimal 130-159 mg/dL, Borderline high 160-189 mg/dL, High >189 mg/dL, Very high Secondary prevention optimal LDL Cholesterol levels are recommended to be < 70 mg/dL Performed By: #### 2 4331-1 ####[facility] LABCLIA [id number] [address] [id number] [place] [address] [place]#### 3024-7, 3051-0, 3016-3 ####[facility] LABIA [id number] [place] [address] [place] Cholesterol in LDL/Cholesterol in HDL [Mass ratio] 2.06 {ratio} Normal <2.54 [facility] Comment on above: Order Comment: Speci men Type: BLOOD SPECIMENOrdering Facility: [facility] [place] Address: [address] [place] [address] Result Comment: Refe rence: 1. National Cholesterol Education Program ATP III Guideline At-A-Glance Quick Desk Reference: National Heart, Lung, and Blood [place]. National Institutes of Health. 2001: NIH Publication No. 01-3305. 2. An International Atherosclerosis Society position paper: global recommendations for the management of dyslipidemia: executive summary, Atherosclerosis. 2014: 232(2):410-413. Performed By: #### 2 4331-1 ####[facility] LABCLIA [id number] [address] [id number] [address] [place]#### 3024-7, 3051-0, 3016-3 ####[facility] LABCLIA [id number] [place] [address] [place] Cholesterol in VLDL [Mass/Vol] 17 mg/dL Normal <30 [facility] Comment on above: Order Comment: Speci men Type: BLOOD SPECIMENOrdering Facility: [facility] [place] Address: [address] [place] [address] Performed By: #### 2 4331-1 ####[facility] LABCLIA [id number] [address] [id number] [place] [address] [place]#### 3024-7, 3051-0, 3016-3 ####[facility] LABCLIA [id number] [place] [id number] [place] Cholesterol non HDL [Mass/Vol] 124 mg/dL Normal <130 [facility] Comment on above: Order Comment: Speci men Type: BLOOD SPECIMENOrdering Facility: [facility] [place] Address: [address] [place] [address] Result Comment: <130 mg/dL, Optimal 130-159 mg/dL, Near optimal/above optimal 160-189 mg/dL, Borderline high 190-219 mg/dL, High >219 mg/dL, Very high Secondary prevention optimal non HDL Cholesterol levels are recommended to be <100 mg/dL Performed By: #### 2 4331-1 ####[facility] LABCLIA [id number] [address] [address] [place] [facility] [id number] [place] [address] [place]#### 3024-7, 305-0, 3015-3 ####[facility] LABCLIA [id number] [place] [address] [place] Cholesterol.total/Omayra sterol in HDL [Mass ratio] 3.38 {ratio} Normal <5.10 [facility] Comment on above: Order Comment: Speci men Type: BLOOD SPECIMENOrdering Facility: [facility] [place] Address: [address] [place], [place] [address] Performed By: #### 2 4331-1 ####[facility] LABCLIA [id number] [address] [id number] [place] [address] [place]#### 3024-7, 3050-0, 3015-3 ####[facility] LABCLIA [id number] [place] [id number] [place] FASTING TIME 14 hrs Normal [facility] Comment on above: Order Comment: Speci men Type: BLOOD SPECIMENOrdering Facility: [facility] [place] Address: [address] [place] [id number] Performed By: #### 2 4331-1 ####[facility] LABCLIA [id number] [place] [id number] [place] [facility] [id number] [place] [address] [place]#### 3024-7, 3050-0, 3015-3 ####[facility] LABCLIA [id number] [address] [address] [place] Triglyceride [Mass/Vol] 83 mg/dL Normal <150 [facility] Comment on above: Order Comment: Speci men Type: BLOOD SPECIMENOrdering Facility: [facility] [place] Address: [address] [place] [address] Result Comment: <150 mg/dL, Normal 150-199 mg/dL, Borderline high 200-499 mg/dL, High >499 mg/dL, Very high Performed By: #### 2 4331-1 ####[facility] LABCLIA [id number] [address] STATES OF [facility] [id number] [place] [address] [place]#### 3024-7, 305-0, 3016-3 ####[facility] LABCLIA [id number] [place] [address] [place] T3Free SerPl-mCncon 20 24 Free T3 [Mass/Vol] 2.4 pg/mL Normal 2.3-4.1 [facility] Comment on above: Order Comment: Speci men Type: BLOOD SPECIMENOrdering Facility: [facility] [place] Address: [address] [place] [address] Performed By: #### 2 4331-1 ####[facility] LABCLIA [id number] [address] [id number] [place] [address] [place]#### 3024-7, 3051-0, 3016-3 ####[facility] LABCLIA [id number] [place] [address] [place] T4 Free SerPl-mCncon 30-2 024 Free T4 [Mass/Vol] 1.2 ng/dL Normal 0.9-1.7 [facility] Comment on above: Order Comment: Speci men Type: BLOOD SPECIMENOrdering Facility: [facility] Address: [address] [place] [address] Performed By: #### 2 4331-1 ####[facility] LABCLIA [id number] [address] [id number] [place] [address] [place]#### 3024-7, 3051-0, 3016-3 ####[facility] LABCLIA [id number] [place] [address] [place] TSH SerPl-aCncon 11-17-2024 TSH Qn 1.280 m[IU]/L Normal 0.270-4.200 [facility] Comment on above: Order Comment: Speci men Type: BLOOD SPECIMENOrdering Facility: [facility] Address: [address] [place] [address] Performed By: #### 2 4331-1 ####[facility] LABCLIA [id number] [address] [address] STATES OF [facility] [id number] [place] [address] [place]#### 3024-7, 3051-0, 3016-3 ####[facility] LABCLIA [id number] [place] [address] [place] Vit B12 SerPl-mCncon 024 Cobalamin (Vitamin B12) [Mass/Vol] 404 pg/mL Normal [id number] [facility] Comment on above: Order Comment: Speci men Type: BLOOD SPECIMENOrdering Facility: [facility] Address: [address] [place] [address] Performed By: #### 2 132-9 ####[facility] RAJI [id number] [address] STATES OF [facility] CNOVon 11-05-2024 CNOV Office Visit (INTMWS ) MICHAELA BRANDT ([id number]) 1940 F Date Time Provider Department 11/05/24 2:40 PM OLDERLAWRENCE During your visit today, we recorded the following information about you: Pulse Respiration Blood pressure Weight 76/minute 16/minute 118/72 60.8 kg OlderLawrence APRN.CNP 11/05/2024 3:38 PM Signed CC: Patient presents with: Establish Care: Establish Care HPI Michaela Brandt is a 84 year old female who presents today for establish care. Just moved to [place] where her daughter lives after needing to sell her 3 story home to allow her to continue to live independently. Last PCP was Ludin Richey in the [place] area. Is now in her own 1 level apartment. Needs assistance with medication dispensing and is needing support to drive her to appointments and to the store. [facility] [place] [facility] as [place]. [...] UTIs and followed with a urologist in [place]. Denies abdominal pain, fever, chills, or dark/foul [...] to request (more content not included)... Normal [facility] Culture, Urineon 12-19-2022 Culture, Urine Culture, Urine-: Klebsiella pneumoniae ssp pneumoniae >100,000 CFU/ml ORGANISM: Klebsiella pneumoniae ssp pneumoniae ANTIBIOTIC INTERPRETATION M.I.C. STATUS [ S = SUSCEPTIBLE R = RESISTANT I = INTERMEDIATE ] Amoxicillin/Clavulana te S 4 F Cefazolin S <=4 F Cefepime S <=0.12 F Cefotaxime S <=0.25 F Cefoxitin S <=4 F Ceftazidime/Avibactam S <=0.12 F Gentamicin S <=1 F Levofloxacin S <=0.12 F Meropenem S <=0.25 F Nitrofurantoin S 32 F Piperacillin/Tazobact am S <=4 F Trimethoprim/Sulfamet hoxazole S <=20 F Normal [facility] Vital Signs Date Time Vital Sign Value Performing Clinician Facility 2025 15:53-0400 Body temperature 98 [degF] Dr. Anaid Santiago MD Work Phone: 0(002)562-347674 [place] [address] 2025 15:53-0400 Diastolic blood pressure 96 mm[Hg] Dr. Anaid Santiago MD Work Phone: 4(765)148-801674 [place] [address] 2025 15:53-0400 Heart rate 83 /min Dr. Anaid Santiago MD Work Phone: 7(746)334-051074 [place] [address] 2025 15:53-0400 Respiratory rate 14 /min Dr. Anaid Santiago MD Work Phone: 6(562)078-532274 [place] [address] 2025 15:53-0400 SaO2% (BldA) [Mass fraction] 99 % Dr. Anaid Santiago MD Work Phone: 5(885)437-809874 [place] [address] 2025 15:53-0400 Systolic blood pressure 114 mm[Hg] Dr. Anaid Santiago MD Work Phone: 7(415)986-996574 [place] [address] 2025 10:52-0400 Body height 154.[address] Anaid Santiago MD Work Phone: 5(182)527-569874 [place] [address] 08-05-2025 09:40-0400 Body mass index (BMI) [Ratio] 23.2 kg/m2 Dr. Anaid Santiago MD Work Phone: 4(440)781-238074 [place] [address] 08-05-2025 09:40-0400 Body temperature 98.1 [degF] Dr. Anaid Santiago MD Work Phone: 8(208)320-100074 [place] [address] 08-05-2025 09:40-0400 Diastolic blood pressure 66 mm[Hg] Dr. Anaid Santiago MD Work Phone: 8(572)614-388474 [place] [address] 08-05-2025 09:40-0400 Heart rate 61 /min Dr. Anaid Santiago MD Work Phone: 4(649)548-757674 [place] [address] 08-05-2025 09:40-0400 Respiratory rate 14 /min Dr. Anaid Santiago MD Work Phone: 3(403)083-196874 [place] [address] 08-05-2025 09:40-0400 Systolic blood pressure 113 mm[Hg] Dr. Anaid Santiago MD Work Phone: 1(026)183-814174 [place] [address] 07-31-2025 22:48-0400 Body temperature 98 [degF] Dr. Anaid Santiago MD Work Phone: 2(718)063-607774 [place] [address] 07-31-2025 22:48-0400 Diastolic blood pressure 41 mm[Hg] Dr. Anaid Santiago MD Work Phone: 0(851)357-219774 [place] [address] 07-31-2025 22:48-0400 Heart rate 62 /min Dr. Anaid Santiago MD Work Phone: 9(212)353-497674 [place] [address] 07-31-2025 22:48-0400 Respiratory rate 20 /min Dr. Anaid Santiago MD Work Phone: 8(923)191-999174 [place] [address] 07-31-2025 22:48-0400 SaO2% (BldA) [Mass fraction] 91 % Dr. Anaid Santiago MD Work Phone: 4(786)103-597174 [place] [address] 07-31-2025 22:48-0400 Systolic blood pressure 139 mm[Hg] Dr. Anaid Santiago MD Work Phone: 8(785)251-901074 [place] [address] 07-31-2025 20:39-0400 Body mass index (BMI) [Ratio] 23.1 kg/m2 Dr. Anaid Santiago MD Work Phone: 1(483)261-521374 [place] [address] 07-31-2025 20:39-0400 Body weight 55.[address] Anaid Santiago MD Work Phone: 3(543)481-137874 [place] [address] 07-31-2025 18:08-0400 Body height 154.[address] Anaid Santiago MD Work Phone: 6(667)979-980874 [place] [address] 07-29-2025 09:43-0400 Body mass index (BMI) [Ratio] 23.2 kg/m2 Dr. Anaid Santiago MD Work Phone: [facility] 07-29-2025 09:43-0400 Body temperature 98 [degF] Dr. Anaid Santiago MD Work Phone: 8(343)785-093474 [place] [address] 07-29-2025 09:43-0400 Diastolic blood pressure 60 mm[Hg] Dr. Anaid Santiago MD Work Phone: 2(251)881-852974 [place] [address] 07-29-2025 09:43-0400 Heart rate 56 /min Dr. Anaid Santiago MD Work Phone: 6(463)945-182874 [place] [address] 07-29-2025 09:43-0400 Respiratory rate 18 /min Dr. Anaid Santiago MD Work Phone: 6(533)529-156374 [place] [address] 07-29-2025 09:43-0400 Systolic blood pressure 118 mm[Hg] Dr. Anaid Santiago MD Work Phone: 8(730)976-849474 [place] [address] 07-22-2025 09:25-0400 Body weight 55.[address] Anaid Santiago MD Work Phone: 6(896)384-326874 [place] [address] 07-17-2025 11:29-0400 Body weight 54.61 kg Anaid Santiago MD Work Phone: [facility] 07-17-2025 11:29-0400 Diastolic blood pressure 77 mm[Hg] Anaid Santiago MD Work Phone: [facility] 07-17-2025 11:29-0400 Heart rate 72 /min Anaid Santiago MD Work Phone: [facility] 07-17-2025 11:29-0400 Respiratory rate 16 /min Anaid Santiago MD Work Phone: [facility] 07-17-2025 11:29-0400 Systolic blood pressure 138 mm[Hg] Anaid Santiago MD Work Phone: [facility] 06-25-2025 15:53-0400 Body temperature 97.1 [degF] Dr. Anaid Santiago MD Work Phone: 4(663)701-657674 [place] [address] 06-25-2025 15:53-0400 Diastolic blood pressure 63 mm[Hg] Dr. Anaid Santiago MD Work Phone: 9(309)324-838974 [place] [address] 06-25-2025 15:53-0400 Heart rate 72 /min Dr. Anaid Santiago MD Work Phone: 2(799)387-348774 [place] [address] 06-25-2025 15:53-0400 Respiratory rate 18 /min Dr. Anaid Santiago MD Work Phone: 2(119)646-623874 [place] [address] 06-25-2025 15:53-0400 SaO2% (BldA) [Mass fraction] 97 % Dr. Anaid Santiago MD Work Phone: 3(561)834-324874 [place] [address] 06-25-2025 15:53-0400 Systolic blood pressure 169 mm[Hg] Dr. Anaid Santiago MD Work Phone: 6(851)124-997074 [place] [address] 06-24-2025 16:38-0400 Body weight 53.[address] Anaid Santiago MD Work Phone: 5(636)671-910974 [place] [address] 06-20-2025 15:47-0400 Body mass index (BMI) [Ratio] 22.9 kg/m2 Dr. Anaid Santiago MD Work Phone: 6(151)764-826374 [place] [address] 06-20-2025 14:19-0400 Body temperature 99.1 [degF] Dr. Anaid Santiago MD Work Phone: 7(007)339-298374 [place] [address] 06-20-2025 14:19-0400 Diastolic blood pressure 53 mm[Hg] Dr. Anaid Santiago MD Work Phone: 9(622)421-288274 [place] [address] 06-20-2025 14:19-0400 Heart rate 80 /min Dr. Anaid Santiago MD Work Phone: 2(053)693-517174 [place] [address] 06-20-2025 14:19-0400 Respiratory rate 22 /min Dr. Anaid Santiago MD Work Phone: 5(082)461-629874 [place] [address] 06-20-2025 14:19-0400 SaO2% (BldA) [Mass fraction] 99 % Dr. Anaid Santiago MD Work Phone: [facility] 06-20-2025 14:19-0400 Systolic blood pressure 136 mm[Hg] Dr. Anaid Santiago MD Work Phone: [facility] 06-20-2025 08:29-0400 Body height 152.[address] Anaid Santiago MD Work Phone: 2(137)542-623274 [place] [address] 06-20-2025 08:29-0400 Body mass index (BMI) [Ratio] 23.4 kg/m2 Dr. Anaid Santiago MD Work Phone: 5(134)111-127674 [place] [address] 06-20-2025 08:29-0400 Body weight 54.[address] Anaid Santiago MD Work Phone: 4(801)299-277076 [place] [address] 06-03-2025 11:18-0400 Body weight 54.16 kg Anaid Santiago MD Work Phone: [facility] 06-03-2025 11:18-0400 Diastolic blood pressure 71 mm[Hg] Anaid Santiago MD Work Phone: 9(685)350-015047 [place] [address] 06-03-2025 11:18-0400 Heart rate 64 /min Anaid Santiago MD Work Phone: [facility] 06-03-2025 11:18-0400 Respiratory rate 16 /min Anaid Santiago MD Work Phone: [facility] 06-03-2025 11:18-0400 SaO2% (BldA) [Mass fraction] 95 % Anaid Santiago MD Work Phone: [facility] 06-03-2025 11:18-0400 Systolic blood pressure 134 mm[Hg] Anaid Santiago MD Work Phone: [facility] 05-17-2025 11:49-0400 Body temperature 98.6 [degF] Dr. Vadim Florence DO Work Phone: [facility] 05-17-2025 11:49-0400 Diastolic blood pressure 66 mm[Hg] Dr. Vadim Florence DO Work Phone: [facility] 05-17-2025 11:49-0400 Heart rate 65 /min Dr. Vadim Florence DO Work Phone: [facility] 05-17-2025 11:49-0400 Respiratory rate 16 /min Dr. Vadim Florence DO Work Phone: [facility] 05-17-2025 11:49-0400 SaO2% (BldA) [Mass fraction] 99 % Dr. Vadim Florence DO Work Phone: [facility] 05-17-2025 11:49-0400 Systolic blood pressure 148 mm[Hg] Dr. Vadim Florence DO Work Phone: [facility] 05-17-2025 09:32-0400 Body height 152.[address] Vadim Florence DO Work Phone: [facility] 05-06-2025 11:28-0400 Diastolic blood pressure 64 mm[Hg] Anaid Santiago MD Work Phone: [facility] 05-06-2025 11:28-0400 Systolic blood pressure 144 mm[Hg] Anaid Santiago MD Work Phone: [facility] 05-06-2025 11:27-0400 Body weight 55.79 kg Anaid Santiago MD Work Phone: [facility] 05-06-2025 11:27-0400 Heart rate 62 /min Anaid Santiago MD Work Phone: [facility] 05-06-2025 11:27-0400 Respiratory rate 12 /min Anaid Santiago MD Work Phone: [facility] 05-06-2025 11:27-0400 SaO2% (BldA) [Mass fraction] 98 % Anaid Santiago MD Work Phone: [facility] 04-17-2025 11:23-0400 Diastolic blood pressure 71 mm[Hg] Anaid Santiago MD Work Phone: [facility] 04-17-2025 11:23-0400 Heart rate 67 /min Anaid Santiago MD Work Phone: [facility] 04-17-2025 11:23-0400 Respiratory rate 16 /min Anaid Santiago MD Work Phone: [facility] 04-17-2025 11:23-0400 SaO2% (BldA) [Mass fraction] 98 % Anaid Santiago MD Work Phone: [facility] 04-17-2025 11:23-0400 Systolic blood pressure 124 mm[Hg] Anaid Santiago MD Work Phone: [facility] 03-19-2025 07:51-0400 Body temperature 98.3 [degF] Dr. Vadim Florence DO Work Phone: [facility] 03-19-2025 07:51-0400 Diastolic blood pressure 64 mm[Hg] Dr. Vadim Florence DO Work Phone: [facility] 03-19-2025 07:51-0400 Heart rate 68 /min Dr. Vadim Florence DO Work Phone: [facility] 03-19-2025 07:51-0400 Respiratory rate 16 /min Dr. Vadim Florence DO Work Phone: [facility] 03-19-2025 07:51-0400 SaO2% (BldA) [Mass fraction] 98 % Dr. Vadim Florence DO Work Phone: [facility] 03-19-2025 07:51-0400 Systolic blood pressure 150 mm[Hg] Dr. Vadim Florence DO Work Phone: [facility] 03-17-2025 14:08-0400 Body mass index (BMI) [Ratio] 25.4 kg/m2 Dr. Vadim Florence DO Work Phone: [facility] 03-17-2025 14:08-0400 Body weight 58.[address] Vadim Florence DO Work Phone: [facility] 03-11-2025 10:53-0400 Body temperature 97.7 [degF] Dr. Vadim Schwiger DO Work Phone: 7(005)373-534202 [place] [address] 03-11-2025 10:53-0400 Diastolic blood pressure 48 mm[Hg] Dr. Vadim Florence DO Work Phone: 7(207)261-674502 [place] [address] 03-11-2025 10:53-0400 Heart rate 67 /min Dr. Vadim Florence DO Work Phone: 2(461)875-589902 [place] [address] 03-11-2025 10:53-0400 Respiratory rate 18 /min Dr. Vadim Florence DO Work Phone: 7(792)313-139094 [place] [address] 03-11-2025 10:53-0400 SaO2% (BldA) [Mass fraction] 100 % Dr. Vadim Florence DO Work Phone: 0(950)845-913294 [place] [address] 03-11-2025 10:53-0400 Systolic blood pressure 118 mm[Hg] Dr. Vadim Florence DO Work Phone: 4(327)742-331794 [place] [address] 03-11-2025 10:52-0400 Body height 152.[address] Vadim Florence DO Work Phone: 2(283)423-382694 [place] [address] 03-11-2025 10:52-0400 Body weight 58.[address] Vadim Florence DO Work Phone: 7(478)463-516994 [place] [address] 03-10-2025 14:50-0400 Body mass index (BMI) [Ratio] 25.4 kg/m2 Dr. Vadim Florence DO Work Phone: 0(329)425-093902 [place] [address] 03-04-2025 13:43-0400 Body temperature 98.1 [degF] Dr. Vadim Florence DO Work Phone: 9(601)084-336602 [place] [address] 03-04-2025 13:43-0400 Diastolic blood pressure 52 mm[Hg] Dr. Vadim Florence DO Work Phone: 5(268)979-937902 [place] [address] 03-04-2025 13:43-0400 Heart rate 83 /min Dr. Vadim Florence DO Work Phone: 3(259)396-372302 [place] [address] 03-04-2025 13:43-0400 Respiratory rate 16 /min Dr. Vadim Schwiger DO Work Phone: [facility] 03-04-2025 13:43-0400 SaO2% (BldA) [Mass fraction] 98 % Dr. Vadim Florence DO Work Phone: [facility] 03-04-2025 13:43-0400 Systolic blood pressure 142 mm[Hg] Dr. Vadim Florence DO Work Phone: 6(318)770-410202 [place] [address] 03-04-2025 11:43-0400 Inhaled oxygen flow rate 97 L/min Dr. Vadim Florence DO Work Phone: 9(645)216-853102 [place] [address] 03-04-2025 05:53-0400 Body mass index (BMI) [Ratio] 25.2 kg/m2 Dr. Vadim Florence DO Work Phone: 1(487)859-925802 [place] [address] 03-04-2025 05:53-0400 Body weight 58.[address] Vadim Florence DO Work Phone: 2(829)093-009202 [place] [address] 03-01-2025 15:09-0400 Body height 152.[address] Vadim Florence DO Work Phone: 8(227)571-798702 [place] [address] 03-01-2025 13:19-0400 Diastolic blood pressure 59 mm[Hg] Dr. Vadim Florence DO Work Phone: 0(942)649-216802 [place] [address] 03-01-2025 13:19-0400 Heart rate 60 /min Dr. Vadim Florence DO Work Phone: 5(854)774-236502 [place] [address] 03-01-2025 13:19-0400 Respiratory rate 21 /min Dr. Vadim Florence DO Work Phone: 3(060)417-868102 [place] [address] 03-01-2025 13:19-0400 SaO2% (BldA) [Mass fraction] 98 % Dr. Vadim Florence DO Work Phone: 4(092)392-661102 [place] [address] 03-01-2025 13:19-0400 Systolic blood pressure 145 mm[Hg] Dr. Vadim Florence DO Work Phone: 6(534)082-730002 [place] [address] 03-01-2025 12:26-0400 Body temperature 97.6 [degF] Dr. Vadim Florence DO Work Phone: [facility] 03-01-2025 11:25-0400 Body height 152.[address] Vadim Florence DO Work Phone: [facility] 03-01-2025 11:25-0400 Body mass index (BMI) [Ratio] 25.7 kg/m2 Dr. Vadim Florence DO Work Phone: [facility] 03-01-2025 11:25-0400 Body weight 59.[address] Vadim Florence DO Work Phone: [facility] 02-19-2025 11:23-0400 Body temperature 98.71 [degF] Walt Robles APRN.INSIGHT DIRECTOR Work Phone: [facility] 02-19-2025 11:23-0400 Body weight 57 kg Walt Robles APRN.INSIGHT DIRECTOR Work Phone: [facility] 02-19-2025 11:23-0400 Diastolic blood pressure 79 mm[Hg] Walt Robles APRN.INSIGHT DIRECTOR Work Phone: [facility] 02-19-2025 11:23-0400 Heart rate 70 /min Walt Robles APRN.INSIGHT DIRECTOR Work Phone: [facility] 02-19-2025 11:23-0400 Respiratory rate 22 /min Walt Robles APRN.INSIGHT DIRECTOR Work Phone: [facility] 02-19-2025 11:23-0400 SaO2% (BldA) [Mass fraction] 98 % Walt Robles APRN.INSIGHT DIRECTOR Work Phone: [facility] 02-19-2025 11:23-0400 Systolic blood pressure 145 mm[Hg] Walt Robles APRN.INSIGHT DIRECTOR Work Phone: [facility] 02-18-2025 10:20-0400 Body weight 57.61 kg Lawrence Salinas APRN.INSIGHT DIRECTOR Work Phone: [facility] 04-02-2025 10:20-0400 Diastolic blood pressure 80 mm[Hg] Lawrence Older PIPE FITTER.INSIGHT DIRECTOR Work Phone: [facility] 02-18-2025 10:20-0400 Heart rate 74 /min Lawrence Older PIPE FITTER.INSIGHT DIRECTOR Work Phone: [facility] 02-18-2025 10:20-0400 Respiratory rate 16 /min Lawrence Older PIPE FITTER.INSIGHT DIRECTOR Work Phone: [facility] 02-18-2025 10:20-0400 SaO2% (BldA) [Mass fraction] 97 % Lawrence Older PIPE FITTER.INSIGHT DIRECTOR Work Phone: [facility] 02-18-2025 10:20-0400 Systolic blood pressure 122 mm[Hg] Lawrence Older PIPE FITTER.INSIGHT DIRECTOR Work Phone: [facility] 02-04-2025 11:21-0400 Body weight 57.42 kg Anaid Santiago MD Work Phone: [facility] 02-04-2025 11:21-0400 Diastolic blood pressure 80 mm[Hg] Anaid Santiago MD Work Phone: [facility] 02-04-2025 11:21-0400 Heart rate 67 /min Anaid Santiago MD Work Phone: [facility] 02-04-2025 11:21-0400 SaO2% (BldA) [Mass fraction] 98 % Anaid Santiago MD Work Phone: [facility] 02-04-2025 11:21-0400 Systolic blood pressure 131 mm[Hg] Anaid Santiago MD Work Phone: [facility] 01-17-2025 19:54-0500 Body temperature 98.1 [degF] Dr. Vadim Florence DO Work Phone: [facility] 01-17-2025 19:54-0500 Diastolic blood pressure 69 mm[Hg] Dr. Vadim Florence DO Work Phone: [facility] 01-17-2025 19:54-0500 Heart rate 77 /min Dr. Vadim Florence DO Work Phone: [facility] 01-17-2025 19:54-0500 Respiratory rate 19 /min Dr. Vadim Florence DO Work Phone: [facility] 01-17-2025 19:54-0500 SaO2% (BldA) [Mass fraction] 98 % Dr. Vadim Florence DO Work Phone: [facility] 01-17-2025 19:54-0500 Systolic blood pressure 146 mm[Hg] Dr. Vadim Florence DO Work Phone: [facility] 12-23-2024 10:07-0500 Body temperature 97.39 [degF] Freddy Baltazar PA-C Work Phone: [facility] 12-23-2024 10:07-0500 Body weight 59.88 kg Freddy Baltazar PA-C Work Phone: [facility] 12-23-2024 10:07-0500 Diastolic blood pressure 64 mm[Hg] Freddy Baltazar PA-C Work Phone: [facility] Comment on above: Freddy notified of blood pressure. No c omplaints from patient. 12-23-2024 10:07-0500 Heart rate 80 /min Freddy Baltazar PA-C Work Phone: [facility] 12-23-2024 10:07-0500 Respiratory rate 12 /min Freddy Baltazar PA-C Work Phone: [facility] 12-23-2024 10:07-0500 SaO2% (BldA) [Mass fraction] 97 % Freddy Baltazar PA-C Work Phone: [facility] 12-23-2024 10:07-0500 Systolic blood pressure 144 mm[Hg] Freddy Baltazar PA-C Work Phone: [facility] Comment on above: Freddy notified of blood pressure. No c omplaints from patient. 11-05-2024 14:35-0500 Body weight 60.78 kg Lawrence Salinas APRN.INSIGHT DIRECTOR Work Phone: [facility] 11-05-2024 14:35-0500 Diastolic blood pressure 72 mm[Hg] Lawrence Older PIPE FITTER.INSIGHT DIRECTOR Work Phone: [facility] 11-05-2024 14:35-0500 Heart rate 76 /min Lawrence Older PIPE FITTER.INSIGHT DIRECTOR Work Phone: [facility] 11-05-2024 14:35-0500 Respiratory rate 16 /min Lawrence Older PIPE FITTER.INSIGHT DIRECTOR Work Phone: [facility] 11-05-2024 14:35-0500 SaO2% (BldA) [Mass fraction] 97 % Lawrence Older PIPE FITTER.INSIGHT DIRECTOR Work Phone: [facility] 11-05-2024 14:35-0500 Systolic blood pressure 118 mm[Hg] Lawrence Older PIPE FITTER.INSIGHT DIRECTOR Work Phone: [facility] 01-17-2024 13:24-0500 Body height 152.4 cm [facility] 01-17-2024 13:24-0500 Body mass index (BMI) [Ratio] 26.9 kg/m2 [facility] 01-17-2024 13:24-0500 Body weight 62.59 kg [facility] 01-17-2024 13:24-0500 Diastolic blood pressure 82 mm[Hg] [facility] 01-17-2024 13:24-0500 Heart rate 73 /min [facility] 01-17-2024 13:24-0500 Respiratory rate 16 /min [facility] 01-17-2024 13:24-0500 SaO2% (BldA) [Mass fraction] 99 % [facility] 01-17-2024 13:24-0500 Systolic blood pressure 126 mm[Hg] [facility] Encounters Encounter Date Encounter Type Care Provider Facility Start: 09-02-2025 ambulatory Anaid Santiago Facility:[facility] Start: 2025 End: 2025 Emergency department patient visit Dr. Anaid Santiago MD Work Phone: -Emergency Department Work Phone: Start: 08-05-2025 Non-patient / Non-visit Lisa alfonso STERILE PROCESSING TECH-C -F [facility] Start: 08-05-2025 End: 08-18-[address] Anaid Santiago MD Work Phone: -Wound [facility] Start: 08-05-2025 End: 08-18-2025 Discharged Recurring Lisa Lobato -[facility] Work Phone: Start: 07-31-2025 End: 07-31-2025 Emergency department patient visit Dr. Anaid Santiago MD Work Phone: -Emergency Department Work Phone: Start: 07-31-2025 End: 08-03-2025 Telephone encounter Renate AN Navigation Comment on above: Patient Update Catheter concern Start: 07-29-2025 Non-patient / Non-visit Lisa alfonso -C -[facility] Start: 07-29-2025 Registered Recurring Lisa Lobato [facility] Work Phone: Start: 07-27-2025 End: 07-31-[address] ANAID SANTIAGO MD Facility:[facility] Start: 07-27-2025 End: 07-31-[address] ANAID SANTIAGO MD [facility] Start: 07-24-2025 End: 07-27-2025 Telephone encounter Anaid Santiago MD Work Phone: [facility] [place] Comment on above: Missed therapy appt delay of care for OT ST Plan of Care Start: 07-22-2025 Non-patient / Non-visit Lisa alfonso STERILE PROCESSING TECH-C -[facility] Start: 07-20-2025 End: 07-21-2025 Refill Lawrence Salinas APRN.INSIGHT DIRECTOR Work Phone: [facility] [place] Comment on above: Refill Request Start: 07-17-2025 End: 07-22-2025 Telephone encounter Renate AN Navigation Start: 07-17-2025 End: 07-17-2025 ambulatory ANAID GANKRISTOPHER Facility:[facility] Start: 07-17-2025 End: 07-17-2025 Office outpatient visit 25 minutes Anaid Santiago MD Work Phone: Internal Medicine [place] Comment on above: Pressure injury of r ight buttock, stage 2 (HCC) (Primary Dx); Chronic indwelling Lizarraga catheter; Anxiety and depression; Lymphocytosis; Acute heart failure, unspecified heart failure type (HCC); Leukocytosis, unspecified type; Recurrent falls Start: 07-17-2025 End: 07-17-2025 ambulatory ANAID GANKRISTOPHER Facility:[facility] Start: 07-16-2025 End: 07-16-2025 Telephone encounter Anaid Santiago MD Work Phone: Internal Medicine [place] Comment on above: Patient Update Start: 07-15-2025 End: 07-17-2025 Refill Aniad Santiago MD Work Phone: Internal [facility] [place] Comment on above: Refill Request Start: 07-14-2025 End: 07-14-2025 Patient encounter procedure Deana Klein Work Phone: Podiatry Comment on above: Onychomycosis Start: 07-14-2025 End: 07-14-2025 ambulatory DEANA KLEIN Facility:[facility] Start: 07-13-2025 End: 07-14-2025 Telephone encounter Anaid Santiago MD Work Phone: Internal Medicine [place] Comment on above: Home Health Orders Start: 06-30-2025 ambulatory Tanvir De Guzman ity:[facility] Start: 06-30-[address] Tanvir wyatt MD -[facility] Start: 06-25-2025 Non-patient / Non-visit Dr. Evon Vieira [facility] Work Phone: Start: 06-24-2025 Non-patient / Non-visit Dr. Evon Vieira DO [facility] Work Phone: Start: 06-23-2025 ambulatory Vadim Pfeifer Facility:[facility] Start: 06-23-2025 Non-patient / Non-visit Dr. Vadim munoz MD -[facility] Start: 06-22-2025 Non-patient / Non-visit Dr. Evon Vieira DO -[place] [facility] Work Phone: Start: 06-21-2025 Non-patient / Non-visit Dr. Cindy guidry MD -[place] [facility] Work Phone: Start: 06-20-2025 ambulatory [facility] Facility:[facility] Start: 06-20-2025 End: 06-25-2025 Evaluation and management of inpatient Dr. 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); Anxiety and depression; Acute heart failure, unspecified heart failure type (HCC); Self-catheterizes urinary bladder; Urinary retention; Onychomycosis; Thickened nail; Acquired deformity of toe, unspecified laterality; IGTN (ingrowing toe nail) Start: 06-03-2025 End: 06-03-2025 ambulatory [facility] Facility:[facility] Start: 05-20-2025 End: 05-26-2025 Telephone encounter Anaid Santiago MD Work Phone: Internal Medicine [place] Comment on above: Forms Start: 05-18-2025 End: 05-19-2025 ambulatory Anaid Santiago MD Work Phone: Geriatrics Start: 05-18-2025 End: 05-19-2025 Patient encounter procedure Anaid Santiago MD Work Phone: Geriatrics Comment on above: Appointment for card iology Start: 05-17-2025 End: 05-17-2025 Emergency department patient visit Dr. Vadim Florence DO Work Phone: -Emergency Department Work Phone: Start: 05-07-2025 End: 05-08-2025 Follow-up encounter Anaid Santiago MD Work Phone: [facility] [place] Start: 05-07-2025 End: 05-12-2025 Telephone encounter Anaid Santiago MD Work Phone: Internal Medicine [place] Comment on above: [facility] request ing order Start: 05-06-2025 End: 05-07-2025 Telephone encounter Anaid Santiago MD Work Phone: Internal Medicine [place] Comment on above: Anxiety Start: 05-06-2025 End: 05-06-2025 ambulatory ANAID SANTIAGO Facility:[facility] Start: 05-06-2025 End: 05-06-2025 Office outpatient visit 25 minutes Anaid Santiago MD Work Phone: Geriatrics Comment on above: Acute heart failure, unspecified heart failure type (HCC) (Primary Dx); Prediabetes; Urinary retention; Acute deep vein thrombosis (DVT) of calf muscle vein of left lower extremity (HCC); Edema, unspecified type; Self-catheterizes urinary bladder; Weakness of both lower extremities; S/P hip hemiarthroplasty Start: 05-06-2025 End: 05-06-2025 ambulatory ANAID SANTIAGO Facility:[facility] Start: 05-04-2025 End: 05-04-2025 Telephone encounter Anaid Santiago MD Work Phone: Family Medicine [place] Comment on above: Edema Start: 05-01-2025 End: 05-02-2025 Refill Lawrence Salinas APRN.CNP Work Phone: Internal [facility] [place] Comment on above: Refill Request Start: 04-27-2025 End: 05-05-2025 Telephone encounter Freddy Baltazar PA-C Work Phone: Urology Comment on above: Orders (Self cathete r) Start: 04-24-2025 End: 04-24-2025 ambulatory Anaid Santiago MD Work Phone: [facility] [place] Start: 04-24-2025 End: 04-24-2025 Patient encounter procedure Anaid Santiago MD Work Phone: Internal Medicine [place] Comment on above: [facility] referral Start: 04-24-2025 End: 04-28-2025 Telephone encounter Anaid Santiago MD Work Phone: [facility] [place] Comment on above: Patient Update Start: 04-21-2025 End: 04-22-2025 Telephone encounter Anaid Santiago MD Work Phone: Family [facility] [place] Comment on above: Swelling Start: 04-20-2025 End: 04-20-2025 ambulatory Anaid Santiago MD Work Phone: Internal Medicine [place] Comment on above: Concern in regards t o care Start: 04-20-2025 End: 04-20-2025 Telephone encounter Anaid Santiago MD Work Phone: Internal [facility] [place] Comment on above: Patient Update; Orde rs Start: 04-17-2025 End: 04-20-2025 Telephone encounter Anaid Santiago MD Work Phone: Internal Medicine [place] Comment on above: Follow HH Request information from [facility] Start: 04-17-2025 End: 04-17-[address] Anaid Santiago MD Work Phone: [facility] Start: 04-17-2025 End: 04-17-2025 Patient encounter procedure Daya PEREZ -[facility] Work Phone: Start: 04-17-2025 End: 04-17-2025 Office outpatient visit 40 minutes Anaid Santiago MD Work Phone: Internal Medicine [place] Comment on above: Ambulatory dysfuncti on (Primary [...] 3 (HCC) Start: 04-17-2025 End: 04-17-2025 ambulatory [facility] Facility:[facility] Start: 04-06-2025 ambulatory Adele MEEHAN Fa cility:[facility] Start: 04-06-2025 [facility] Start: 03-30-2025 End: 03-30-2025 Patient encounter procedure Daya PEREZ [facility] Work Phone: Start: 03-30-2025 End: 03-30-[address] Vadim Florence DO Work Phone: [facility] Work Phone: Start: 03-30-2025 End: 03-30-2025 [facility] Start: 03-30-2025 End: 03-30-2025 ambulatory [facility] Facility:[facility] Start: 03-24-2025 End: 03-24-[address] Anaid Santiago MD Work Phone: [facility] Start: 03-24-2025 End: 03-24-[address] Adele Gusman MD [facility] Work Phone: Start: 03-23-2025 End: 03-23-2025 [facility] Start: 03-23-2025 End: 03-23-2025 ambulatory Adele MEEHAN Facility:[facility] Start: 03-19-2025 End: 03-19-2025 Telephone encounter Renate Haywood Start: 03-09-2025 Non-patient / Non-visit Dr. Vadim munoz MD -[facility] Start: 03-09-2025 End: 03-09-[address] Vadim Florence DO Work Phone: [facility] Work Phone: Start: 03-09-2025 End: 03-09-[address] Garfield Yo MD -[facility] Work Phone: Start: 03-09-2025 End: 03-09-2025 ambulatory [facility] Facility:[facility] Start: 03-04-2025 End: 03-19-2025 Evaluation and management of inpatient Dr. Garfield Yo MD -Transitional Care Unit Start: 03-04-2025 Non-patient / Non-visit Dr. Jessica Tran MD -[facility] Work Phone: Start: 03-03-2025 Non-patient / Non-visit Dr. Jessica Tran MD -[place] [facility] Work Phone: Start: 03-03-2025 End: 03-04-2025 Admission to same day surgery center Anaid Santiago MD Work Phone: Geriatrics Comment on above: Michaela Hip surgery Start: 03-03-2025 End: 03-04-2025 ambulatory Anaid Santiago MD Work Phone: Geriatrics Start: 03-02-2025 Non-patient / Non-visit Dr. Jessica Tran MD -[facility] [facility] Work Phone: Start: 03-01-2025 ambulatory [facility] Facility:[facility] Start: 03-01-2025 End: 03-04-2025 Evaluation and management of inpatient Dr. Roro Long DO -Medical Surgical 3 Work Phone: Start: 02-27-2025 End: 03-02-2025 Telephone encounter Renate Montgomery MSW Navigation Start: 02-24-2025 End: 02-25-2025 Refill Anaid Santiago MD Work Phone: Geriatrics Comment on above: Refill Request Start: 02-22-2025 End: 02-22-2025 Follow-up encounter Walt Robles APRN.CNP Work Phone: [facility] Start: 02-19-2025 End: 02-19-2025 Telephone encounter Walt Robles APRN.INSIGHT DIRECTOR Work Phone: [facility] Comment on above: Clinical Update Start: 02-19-2025 End: 02-19-2025 ambulatory [facility] Facility:[facility] Start: 02-19-2025 End: 02-19-2025 Patient encounter procedure Walt Robles APRN.INSIGHT DIRECTOR Work Phone: [place] [facility] Comment on above: Recurrent UTI (urina ry tract infection) (Primary Dx) Start: 02-18-2025 End: 04-20-2025 Follow-up encounter Anaid Santiago MD Work Phone: [facility] [place] Start: 02-18-2025 End: 02-27-2025 ambulatory Anaid Santiago MD Work Phone: Geriatrics Comment on above: Concern for future c are Start: 02-18-2025 End: 02-18-2025 Patient encounter procedure Lawrence Salinas APRN.INSIGHT DIRECTOR Work Phone: Internal Medicine [place] Comment on above: Impacted cerumen of right ear (Primary Dx) Start: 02-17-2025 End: 02-17-2025 ambulatory [facility] Facility:[facility] Start: 02-04-2025 End: 02-04-[address]25 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, psychotic disturbance, mood disturbance, or anxiety (HCC) (Primary Dx); Impacted cerumen, right ear; Insomnia due to mental disorder; Generalized anxiety disorder Start: 02-02-2025 End: 02-04-2025 Refill Anaid Santiago MD Work Phone: Geriatrics Comment on above: Refill Request Start: 01-28-2025 End: 03-30-2025 Follow-up encounter Anaid Santiago MD Work Phone: Geriatrics Comment on above: Results Start: 01-26-2025 End: 01-27-2025 Refill Anaid Santiago MD Work Phone: Internal [facility] [place] Comment on above: Refill Request Start: 01-24-2025 ambulatory ANAID SANTIAGO Facility:1 [id number] Start: 01-24-2025 End: 01-24-2025 Subsequent hospital visit by physician [facility] Work Phone: [facility] Comment on above: Cognitive impairment , mild, so stated [G31.84] Start: 01-23-2025 End: 01-27-2025 ambulatory Anaid Santiago MD Work Phone: Geriatrics Comment on above: Clonazepam Start: 01-21-2025 End: 01-22-2025 Refill Anaid Santiago MD Work Phone: Internal Medicine [place] Comment on above: Refill Request Start: 01-17-2025 End: 01-17-2025 Emergency department patient visit Dr. Vadim Florence DO -Emergency Department Work Phone: Start: 01-09-2025 End: 01-13-2025 ambulatory Anaid Santiago MD Work Phone: Geriatrics Comment on above: Handicap placard Start: 01-01-2025 End: 01-02-2025 ambulatory Anaid Santiago MD Work Phone: Geriatrics Comment on above: Taking new medicatio n Aricept Start: 12-31-2024 End: 01-01-2025 Refill Lawrence Salinas PIPE FITTER.INSIGHT DIRECTOR Work Phone: Internal Medicine [place] Comment on above: Refill Request Start: 12-23-2024 End: 12-25-2024 Telephone encounter Freddy Baltazar PA-C Work Phone: Urology Comment on above: Request Outside [facility] Start: 12-23-2024 End: 12-23-2024 ambulatory FREDDY BALTAZAR Facility:[facility] Start: 12-23-2024 End: 12-23-2024 Patient encounter procedure Freddy Baltazar PA-C Work Phone: Urology Comment on above: Retention of urine, unspecified (Primary Dx); Self-catheterizes urinary bladder; Urinary problem Start: 12-15-2024 End: 12-15-2024 Refill Lawrence Older PIPE FITTER.INSIGHT DIRECTOR Work Phone: Internal Medicine [place] Comment on above: Refill Request Start: 12-12-2024 End: 12-15-2024 Refill Lawrence Older PIPE FITTER.INSIGHT DIRECTOR Work Phone: Internal Medicine [place] Comment on above: Refill Request Start: 12-10-2024 End: 12-16-2024 Telephone encounter Anaid Santiago MD Work Phone: Geriatrics Comment on above: Orders Start: 12-10-2024 End: 12-10-2024 Assmt & care planning pt w/cognitive impairment Anaid Santiago MD Work Phone: Geriatrics Comment on above: Cognitive impairment , mild, so stated (Primary Dx); Self-catheterizes urinary bladder; Balance disorder; Concern about memory; Anxiety and depression; Assistance needed for bathing; Ambulates with cane Start: 12-10-2024 End: 12-10-2024 ambulatory [facility] Facility:[facility] Start: 11-17-2024 End: 11-17-2024 [facility] Facility:[facility] Start: 11-11-2024 End: 11-21-2024 Refill Lawrence Older PIPE FITTER.INSIGHT DIRECTOR Work Phone: Internal Medicine [place] Comment on above: Refill Request clonazePAM refill Start: 11-05-2024 End: 11-05-2024 Patient encounter procedure Lawrence Older PIPE FITTER.INSIGHT DIRECTOR Work Phone: Internal Medicine [place] Comment on above: Encounter to [facility] (Primary Dx); Anxiety and depression; Hypothyroidism, unspecified type; Balance disorder; Ambulates with cane; Concern about memory; Self-catheterizes urinary bladder; Unable to void; Assistance needed for bathing; Lipid screening; Urinary problem Start: 11-05-2024 End: 11-05-2024 ambulatory [facility] Facility:[facility] Start: 11-05-2024 End: 11-06-2024 Refill Lawrence Older PIPE FITTER.INSIGHT DIRECTOR Work Phone: Internal Medicine [place] Comment on above: Med Change Request Start: 01-17-2024 ambulatory Ludin Erick Gabi ty:[facility] Start: 01-17-2024 End: 01-17-2024 ambulatory [facility] Work Phone: Start: 01-17-2024 End: 01-17-2024 Patient encounter procedure [facility] [address] Work Phone: Procedures Date Procedure Procedure Detail Performing Clinician Start: 2025 Urnls dip stick/tabl et reagent auto microscopy Dr. Anaid Santiago MD Work Phone: Start: 07-31-[address] Anaid Santiago MD Work Phone: Start: 07-31-2025 Urnls dip stick/tabl et reagent auto microscopy Dr. Anaid Santiago MD Work Phone: Start: 07-31-[address] Abbie Santiago MD Work Phone: Start: 06-22-[address] Anaid Santiago MD Work Phone: Start: 06-20-[address] Abbie Santiago MD Work Phone: Start: 06-20-2025 Urnls dip stick/tabl et reagent auto microscopy Dr. Anaid Santiago MD Work Phone: Start: 06-20-2025 Plain x-ray of elbow Dr Gilbert Santiago MD Work Phone: Start: 06-20-2025 Plain x-ray of pelvi s and lower extremity Dr. Anaid Santiago MD Work Phone: Start: 06-20-2025 X-ray of knee, one o r two views Dr. Anaid Santiago MD Work Phone: Start: 06-20-2025 CT cervical spine wi thout contrast Dr. Anaid Santiago MD Work Phone: Start: 06-20-2025 CT of thorax, abdome n and pelvis with contrast Dr. Anaid Santiago MD Work Phone: Start: 06-20-[address] Anaid Santiago MD Work Phone: Start: 06-20-2025 CT of head without contrast Dr. Anaid Santiago MD Work Phone: Start: 05-17-2025 Urine [...] et rgnt auto w/o microscopy Dasha Plata APRN.INSIGHT DIRECTOR Work Phone: Start: 01-24-2025 MRI 3D BRAIN QUANT Kael Santiago MD Work Phone: Start: 01-24-2025 Mri brain brain stem w/o contrast material Anaid Santiago MD Work Phone: Start: 01-17-2025 Urnls [...] dip stick/tabl et rgnt auto w/o microscopy Freddy Baltazar PA-C Work Phone: Plan of Treatment Date Care Activity Detail Author Start: 05-06-2028 Diabetes Screening Diabetes Screenin g [facility] Start: 11-17-2027 Diabetes Screening Diabetes Screenin g [facility] Start: 06-03-2026 RSV Vaccine (1 - 1-d ose 75+ series) RSV Vaccine (1 - 1-dose 75+ series) [facility] Comment on above: Postponed from 08/17 (Declined at this time) Start: 10-26-2025 End: 10-26-2025 Patient encounter procedure 10/26/2025 10:00 AM EST Office Visit Podiatry [address] [place], [place] [id number] Deana Klein [address] [place] [address] bilateral toenails Podiatry Comment on above: bilateral toenails Start: 2025 Urine culture Urine Culture [facility] Start: 2025 [facility] Start: 07-31-2025 [facility] Start: 07-31-2025 [facility] Start: 07-31-2025 Bacteria identified in Urine by Culture Urine Culture [facility] Start: 07-20-2025 Influenza vaccination [facility] Start: 07-17-2025 End: 10-16-2025 CBC W Auto Differential panel - Blood [facility] Work Phone: Comment on above: Expected: 07/17/2025 , Expires: 10/16/2025 Start: 07-17-2025 End: 07-17-2025 Patient encounter procedure 07/17/2025 11:20 AM EDT Office Visit [facility] [place] [address] [place], [place] [id number] Anaid Santiago MD [address] [place] [address] 3 Month F/U [facility] [place] Comment on above: 3 Month F/U Start: 07-14-2025 End: 07-14-2025 Patient encounter procedure 07/14/2025 10:00 AM EDT Office Visit Podiatry [address] [place] [address] Deana Klein [address] [address] bilateral toenails/very thick Podiatry Comment on above: bilateral toenails/v jaxson thick Start: 06-25-2025 Patient discharge [facility] Start: 06-20-2025 Following clinical p athway protocol [facility] Start: 06-20-2025 Assessment of risk o f venous thromboembolism [facility] Start: 06-20-2025 Inhalation therapy procedure [facility] Start: 06-20-2025 Insertion of cathete r into peripheral vein [facility] Start: 06-20-2025 Providing care accor ding to standard [facility] Start: 06-20-2025 Provision of activit y privileges [facility] Start: 06-20-2025 Referral for physica l therapy [facility] Start: 06-20-2025 Referral to occupati onal therapist [facility] Start: 06-20-2025 Referral to service [facility] Start: 06-20-2025 [facility] Start: 06-20-2025 Verification routine [facility] Start: 06-20-2025 Admission procedure [facility] Start: 06-20-2025 Bacteria identified in Urine by Culture Urine Culture [facility] Start: 06-20-2025 Hospital admission, emergency, from emergency room, medical nature [facility] Start: 06-20-2025 [facility] Start: 06-20-2025 Patient referral to dietitian [facility] Start: 06-03-2025 End: 06-03-2025 Patient encounter procedure 06/03/2025 11:00 AM EDT Office Visit Geriatrics [address] [place] [address] Anaid Santiago MD [address] [place] [address] 4 wk follow up Geriatrics Comment on above: 4 wk follow up Start: 05-25-2025 End: 05-25-2025 Patient encounter procedure 05/25/2025 8:00 AM EDT Office Visit Cardiology [address] [place] [address] Acute heart failure, unspecified heart failure type (HCC) [I50.9] Cardiology Comment on above: Acute heart failure, unspecified heart failure type (HCC) [I50.9] Start: 05-17-2025 Bacteria identified in Urine by Culture Urine Culture [facility] Start: 05-17-2025 End: 05-17-2025 [facility] Start: 05-17-2025 [facility] Start: 05-06-2025 End: 08-05-2025 Comprehensive metabolic 2000 panel - Serum or Plasma [facility] Comment on above: Expected: 05/06/2025 , Expires: 08/05/2025 Start: 05-06-2025 End: 08-05-2025 Hemoglobin A1c in Blood [facility] Comment on above: Expected: 05/06/2025 , Expires: 08/05/2025 Start: 05-06-2025 End: 08-05-2025 Natriuretic peptide.B prohormone N-Terminal [Mass/volume] in Serum or Plasma [facility] Comment on above: Expected: 05/06/2025 , Expires: 08/05/2025 Start: 05-06-2025 End: 05-06-2025 Patient encounter procedure 05/06/2025 11:30 AM EDT Office Visit Geriatrics [address] [place] [address] Anaid Santiago MD [address] [place] [address] 3 mo follow up Geriatrics Comment on above: 3 mo follow up Start: 03-19-2025 Removal of urinary catheter [facility] Start: 03-19-2025 Patient discharge [facility] Start: 03-18-2025 Development of care plan [facility] Start: 03-16-2025 [facility] Start: 03-14-2025 [facility] Start: 03-11-2025 [facility] Start: 03-11-2025 Incentive spirometry [facility] Start: 03-10-2025 Recommendation to co ntgeorgeue with treatment [facility] Start: 03-06-2025 [facility] Start: 03-05-2025 Speech therapy management [facility] Start: 03-05-2025 Development of care plan [facility] Start: 03-05-2025 Developing a treatme nt plan [facility] Start: 03-05-2025 Speech therapy assessment [facility] Start: 03-04-2025 End: 03-04-2025 Contact precautions [facility] Start: 03-04-2025 Admission procedure [facility] Start: 03-04-2025 Introduction of urin clay catheter [facility] Start: 03-04-2025 Measuring intake and output [facility] Start: 03-04-2025 Patient referral to dietitian [facility] Start: 03-04-2025 Referral to occupati onal therapist [facility] Start: 03-04-2025 Referral to service [facility] Start: 03-04-2025 Verification routine [facility] Start: 03-04-2025 Vital signs measurements [facility] Start: 03-04-2025 End: 03-04-2025 [facility] Start: 03-04-2025 Following clinical p athway protocol [facility] Start: 03-04-2025 Patient discharge [facility] Start: 03-04-2025 Application of device [facility] Start: 03-03-2025 [facility] Start: 03-03-2025 [facility] Start: 03-03-2025 [facility] Start: 03-03-2025 [facility] Start: 03-03-2025 [facility] Start: 03-03-2025 [facility] Start: 03-03-2025 [facility] Start: 03-02-2025 [facility] Start: 03-02-2025 [facility] Start: 03-02-2025 [facility] Start: 03-02-2025 [facility] Start: 03-02-2025 [facility] Start: 03-02-2025 Provision of overbed trapeze [facility] Start: 03-02-2025 Recommendation to co consuelo with treatment [facility] Start: 03-02-2025 End: 03-02-2025 [facility] Start: 03-02-2025 Application of device [facility] Start: 03-02-2025 Assessment of risk o f venous thromboembolism [facility] Start: 03-02-2025 Catheterization of vein [facility] Start: 03-02-2025 Exercises [facility] Start: 03-02-2025 Following clinical p athway protocol [facility] Start: 03-02-2025 Introduction of urin clay catheter [facility] Start: 03-02-2025 Measuring intake and output [facility] Start: 03-02-2025 Neurovascular assessment [facility] Start: 03-02-2025 Patient education [facility] Start: 03-02-2025 Procedure discontinued [facility] Start: 03-02-2025 Provision of activit y privileges [facility] Start: 03-02-2025 Referral to occupati onal therapist [facility] Start: 03-02-2025 Referral to service [facility] Start: 03-02-2025 Vital signs measurements [facility] Start: 03-02-2025 Wound care [facility] Start: 03-01-2025 Application of ice c ollar, cap or bag [facility] Start: 03-01-2025 Assessment of risk o f venous thromboembolism [facility] Start: 03-01-2025 Skin care [facility] Start: 03-01-2025 [facility] Start: 03-01-2025 Assessment of risk o f venous thromboembolism [facility] Start: 03-01-2025 Catheterization of vein [facility] Start: 03-01-2025 Consultation [facility] Start: 03-01-2025 Consultation for treatment [facility] Start: 03-01-2025 Following clinical p athway protocol [facility] Start: 03-01-2025 Inhalation therapy procedure [facility] Start: 03-01-2025 Insertion of cathete r into peripheral vein [facility] Start: 03-01-2025 Measuring intake and output [facility] Start: 03-01-2025 Oxygen therapy [facility] Start: 03-01-2025 Providing care accor ding to standard [facility] Start: 03-01-2025 Referral to occupati onal therapist [facility] Start: 03-01-2025 Referral to service [facility] Start: 03-01-2025 [facility] Start: 03-01-2025 Hospital admission, emergency, from emergency room, medical nature [facility] Start: 03-01-2025 Verification routine [facility] Start: 03-01-2025 Admission procedure [facility] Start: 03-01-2025 End: 03-02-2025 [facility] Start: 03-01-2025 [facility] Start: 02-18-2025 End: 02-18-2025 Patient encounter procedure 02/18/2025 10:20 AM EDT Office Visit [facility] [address] [place] [address] Lawrence Salinas APRN.INSIGHT DIRECTOR [address] [place] [address] ear lavage [facility] Comment on above: ear lavage Start: 02-04-2025 End: 05-06-2025 Thyrotropin [Units/volume] in Serum or Plasma THYROID STIMULATING HORMONE Lab Routine Expected: 02/04/2025, Expires: 05/06/2025 [facility] Work Phone: Comment on above: Expected: 02/04/2025 , Expires: 05/06/2025 Start: 02-04-2025 End: 02-04-2025 Patient encounter procedure 02/04/2025 11:20 AM EDT Office Visit [facility] [place] [address] [place] [address] Lawrence Salinas APRN.INSIGHT DIRECTOR [address] [place] [address] 3 month follow up [facility] [place] Comment on above: 3 month follow up Start: 01-24-2025 End: 01-24-2025 Patient encounter procedure 01/24/2025 12:30 PM EST Appointment [facility] [address] [place] [place] [address] MRI BRAIN W QUANT WO IVCON, Cognitive [...] AM EST Office Visit Urology [address] [place] [address] Freddy Baltazar PA-C [address] [place], [place] [id number] 1 YR F/U Urology Comment on above: 1 YR F/U Start: 12-23-2024 End: 12-23-2024 Patient encounter procedure 12/23/2024 10:00 AM EST Office Visit Urology [address] [place] [address] Freddy Baltazar PA-C [address] [place] [address] Self-catheterizes urinary bladder [Z78.9] Urology Comment on above: Self-catheterizes ur inary bladder [Z78.9] Start: 12-10-2024 End: 12-10-2024 Patient encounter procedure 12/10/2024 12:30 PM EST Office Visit Geriatrics [address] [place] [address] Anaid Santiago MD [address] [place] [address] Self-catheterizes urinary bladder [Z78.9] Geriatrics Comment on above: Self-catheterizes ur inary bladder [Z78.9] Start: 11-19-2024 Advance Directive Discussion Advance Directive Discussion [facility] Start: 11-19-2024 Medicare Advantage A nnual Wellness Visit Medicare Advantage Annual Wellness Visit [facility] Start: 11-05-2024 End: 02-04-2025 CBC panel - Blood by Automated count COMPLETE BLOOD COUNT Lab Routine Concern about memory Expected: 11/05/2024, Expires: 02/04/2025 [facility] Comment on above: Expected: 11/05/2024 , Expires: 02/04/2025 Start: 11-05-2024 End: 02-04-2025 Cobalamin (Vitamin B12) [Mass/volume] in Serum or Plasma VITAMIN B12 Lab Routine Concern about memory Expected: 11/05/2024, Expires: 02/04/2025 [facility] Comment on above: Expected: 11/05/2024 , Expires: 02/04/2025 Start: 11-05-2024 End: 02-04-2025 Comprehensive metabolic 2000 panel - Serum or Plasma COMPREHENSIVE METABOLIC PANEL Lab Routine Concern about memory Lipid screening Expected: 11/05/2024, Expires: 02/04/2025 [facility] Comment on above: Expected: 11/05/2024 , Expires: 02/04/2025 Start: 11-05-2024 End: 02-04-2025 Lipid 1996 panel - Serum or Plasma LIPID PANEL BASIC Lab Routine Lipid screening Expected: 11/05/2024, Expires: 02/04/2025 [facility] Work Phone: Comment on above: Expected: 11/05/2024 , Expires: 02/04/2025 Start: 11-05-2024 End: 02-04-2025 Thyrotropin [Units/volume] in Serum or Plasma THYROID STIMULATING HORMONE Lab Routine Concern about memory Hypothyroidism, unspecified type Expected: 11/05/2024, Expires: 02/04/2025 [facility] Comment on above: Expected: 11/05/2024 , Expires: 02/04/2025 Start: 11-05-2024 End: 02-04-2025 Thyroxine (T4) free [Mass/volume] in Serum or Plasma T4 FREE/FREE THYROXINE Lab Routine Concern about memory Hypothyroidism, unspecified type Expected: 11/05/2024, Expires: 02/04/2025 [facility] Comment on above: Expected: 11/05/2024 , Expires: 02/04/2025 Start: 11-05-2024 End: 02-04-2025 Triiodothyronine (T3) Free [Mass/volume] in Serum or Plasma T3, FREE Lab Routine Concern about memory Hypothyroidism, unspecified type Expected: 11/05/2024, Expires: 02/04/2025 [facility] Comment on above: Expected: 11/05/2024 , Expires: 02/04/2025 Start: 07-20-2024 Covid-19 Vaccine ( season) Covid-19 Vaccine ( season) [facility] Start: 07-20-2024 Influenza vaccination Influenza Vacc ine (#1) [facility] Start: 02-09-2024 Patient referral [facility] Work Phone: Start: 01-17-2024 Radiologic examinati on of knee XR knee LT 4V [facility] Start: 02-28-2020 Pneumococcal Vaccine : 50+ (2 of 2 - PCV) Pneumococcal Vaccine: 50+ (2 of 2 - PCV) [facility] Start: 2015 RSV Vaccine (1 - 1-d ose 75+ series) RSV Vaccine (1 - 1-dose 75+ series) [facility] Start: 01-14-2009 Shingrix Vaccine (2 of 3) Bran grix Vaccine (2 of 3) [facility] Start: 2005 Screening for osteoporosis Bone Dens ity Screening [facility] Start: 1985 Diabetes Screening Diabetes Screenin g [facility] Start: 1959 Urine microalbumin profile DTa P,Tdap,Td Vaccine (1 - Tdap) [facility] Start: 1958 Anxiety Screening Anxiety Screening [facility] Start: 1958 Depression Screening Depression Scre ening [facility] Anion gap in Serum o r Plasma [facility] Anion gap in Serum o r Plasma [facility] Anion gap in Serum o r Plasma [facility] Anion gap in Serum o r Plasma [facility] Anion gap in Serum o r Plasma [facility] Bacteria identified in Urine by Culture BACTERIAL CULTURE, URINE Microbiology Routine Urinary frequency Ordered: 02/19/2025 [facility] Work Phone: Comment on above: Ordered: 02/19/2025 BUN/Creatinine ratio [facility] BUN/Creatinine ratio [facility] BUN/Creatinine ratio [facility] BUN/Creatinine ratio [facility] BUN/Creatinine ratio [facility] Calcium [Mass/volume ] in Serum or Plasma [facility] Calcium [Mass/volume ] in Serum or Plasma [facility] Calcium [Mass/volume ] in Serum or Plasma [facility] Calcium [Mass/volume ] in Serum or Plasma [facility] Calcium [Mass/volume ] in Serum or Plasma [facility] Carbon dioxide, tota l [Moles/volume] in Central venous blood [facility] Carbon dioxide, tota l [Moles/volume] in Central venous blood [facility] Carbon dioxide, tota l [Moles/volume] in Central venous blood [facility] Carbon dioxide, tota l [Moles/volume] in Central venous blood [facility] Carbon dioxide, tota l [Moles/volume] in Central venous blood [facility] Creatinine [Mass/vol ume] in Serum or Plasma [facility] Creatinine [Mass/vol ume] in Serum or Plasma [facility] Creatinine [Mass/vol ume] in Serum or Plasma [facility] Creatinine [Mass/vol ume] in Serum or Plasma [facility] Creatinine [Mass/vol ume] in Serum or Plasma [facility] End: 05-06-2026 Echocardiography [facility] Acute heart failure, unspecified heart failure type (HCC) 1 Occurrences starting 05/06/2025 until 05/06/2026 [facility] Work Phone: Comment on above: 1 Occurrences starti ng 05/06/2025 until 05/06/2026 Erythrocyte mean corpuscular volume determination [facility] Erythrocyte mean corpuscular volume determination [facility] Erythrocyte mean corpuscular volume determination [facility] Erythrocyte mean corpuscular volume determination [facility] Erythrocyte mean corpuscular volume determination [facility] Glucose [Mass/volume ] in Serum or Plasma [facility] Glucose [Mass/volume ] in Serum or Plasma [facility] Glucose [Mass/volume ] in Serum or Plasma [facility] Glucose [Mass/volume ] in Serum or Plasma [facility] Glucose [Mass/volume ] in Serum or Plasma [facility] Hematocrit [Volume Fraction] of Blood [facility] Hematocrit [Volume Fraction] of Blood [facility] Hematocrit [Volume Fraction] of Blood [facility] Hematocrit [Volume Fraction] of Blood [facility] Hematocrit [Volume Fraction] of Blood [facility] Hemoglobin [Mass/vol ume] in Blood [facility] Hemoglobin [Mass/vol ume] in Blood [facility] Hemoglobin [Mass/vol ume] in Blood [facility] Hemoglobin [Mass/vol ume] in Blood [facility] Hemoglobin [Mass/vol ume] in Blood [facility] Leukocytes [#/volume ] in Blood [facility] Leukocytes [#/volume ] in Blood [facility] Leukocytes [#/volume ] in Blood [facility] Leukocytes [#/volume ] in Blood [facility] Leukocytes [#/volume ] in Blood [facility] Mean corpuscular hemoglobin concentration determination [facility] Mean corpuscular hemoglobin concentration determination [facility] Mean corpuscular hemoglobin concentration determination [facility] Mean corpuscular hemoglobin concentration determination [facility] Mean corpuscular hemoglobin concentration determination [facility] Mean corpuscular hemoglobin determination [facility] Mean corpuscular hemoglobin determination [facility] Mean corpuscular hemoglobin determination [facility] Mean corpuscular hemoglobin determination [facility] Mean corpuscular hemoglobin determination [facility] Measurement of renal function [facility] Measurement of renal function [facility] Measurement of renal function [facility] Measurement of renal function [facility] Measurement of renal function [facility] End: 01-09-2026 MR Brain WO contrast MRI BRAIN W QUANT WO IVCON Radiology Routine Cognitive impairment, mild, so stated 1 Occurrences starting 12/10/2024 until 01/09/2026 [facility] Work Phone: Comment on above: 1 Occurrences starti ng 12/10/2024 until 01/09/2026 End: 01-09-2026 MR Unspecified body region 3D post processing MRI 3D BRAIN QUANT Radiology Routine Cognitive impairment, mild, so stated 1 Occurrences starting 12/10/2024 until 01/09/2026 [facility] Comment on above: 1 Occurrences starti ng 12/10/2024 until 01/09/2026 Neutrophil count [facility] Neutrophil count [facility] Neutrophil count [facility] Neutrophil count [facility] Neutrophil count [facility] Neutrophil percent differential count [facility] Neutrophil percent differential count [facility] Neutrophil percent differential count [facility] Neutrophil percent differential count [facility] Neutrophil percent differential count [facility] Patient Education [facility] Work Phone: Patient referral [facility] Work Phone: Platelets [#/volume] in Blood [facility] Platelets [#/volume] in Blood [facility] Platelets [#/volume] in Blood [facility] Platelets [#/volume] in Blood [facility] Platelets [#/volume] in Blood [facility] Potassium measurement [facility] Potassium measurement [facility] Potassium measurement [facility] Potassium measurement [facility] Potassium measurement [facility] Red blood cell count [facility] Red blood cell count [facility] Red blood cell count [facility] Red blood cell count [facility] Red blood cell count [facility] Red cell distributio n width determination [facility] Red cell distributio n width determination [facility] Red cell distributio n width determination [facility] Red cell distributio n width determination [facility] Red cell distributio n width determination [facility] Removal impacted cer umen irrigation/lvg unilat AMBULATORY EAR LAVAGE/IRRIGATION Procedures Routine Impacted cerumen of right ear Ordered: 02/18/2025 [facility] Work Phone: Comment on above: Ordered: 02/18/2025 Serum chloride measurement [facility] Serum chloride measurement [facility] Serum chloride measurement [facility] Serum chloride measurement [facility] Serum chloride measurement [facility] Sodium measurement [facility] Sodium measurement [facility] Sodium measurement [facility] Sodium measurement [facility] Sodium measurement [facility] Urea nitrogen [Mass/volume] in Serum or Plasma [facility] Urea nitrogen [Mass/volume] in Serum or Plasma [facility] Urea nitrogen [Mass/volume] in Serum or Plasma [facility] Urea nitrogen [Mass/volume] in Serum or Plasma [facility] Urea nitrogen [Mass/volume] in Serum or Plasma [facility] Urine culture [facility] Urine culture [facility] Urine culture [facility] Immunizations Immunization Date Immunization Notes Care Provider [facility] 10-31-2022 influenza (aIIV4) vaccine, age 65+ yr, quadrivalent, PF (FLUAD QUAD) Anaid Santiago MD Work Phone: [facility] 10-31-2022 influenza virus vacc ine, unspecified formulation Lawrence Salinas APRN.INSIGHT DIRECTOR Work Phone: [facility] 10-06-2021 influenza (aIIV4) vaccine, age 65+ yr, quadrivalent, PF (FLUAD QUAD) Anaid Santiago MD Work Phone: [facility] 02-27-2019 pneumococcal polysaccharide vaccine, [address] Vadim Florence DO Work Phone: [facility] 08-19-2009 pneumococcal conjuga te vaccine, [address] Vadim Florence DO Work Phone: [facility] 11-19-2008 zoster vaccine, live Anaid Santiago MD Work Phone: [facility] Payers Date Payer Category Payer Private Health Insurance 261 [id number] 2025 Self-pay [id number] 2023 Medicare [employer] PPO [id number] 2023-Present [phone] [address] [address] [place] [address] PPO [id number] 2023 Medicare (Managed Care) [employer] PPO [id number] 2023 Medicare [id number] 1940 Unknown [id number] 2..1.196531.3.579. 2.627 Medicare [id number] [id number] Medicare Medicare Part A & B [id number] 2A [id number] [facility] [id number] Unknown [id number] 2.0.1.578908.3.579. 2.462 Unknown [id number] 2.16840.1.355219.3.579. 2.462 Unknown [id number] 2.840.1.565666.3.579. 2.462 Unknown [id number] 2.840.1.835489.3.579. 2.462 Unknown [id number] 2.16840.1.174844.3.579. 2.462 Unknown [id number] 2.840.1.595098.3.579. 2.462 Unknown [id number] 2.16.840.1.008890.3.579. 2.462 Unknown [id number] 2.16.840.1.743279.3.579. 2.462 Unknown [id number] 2.16.840.1.992717.3.579. 2.462 Unknown [id number] 2.16.840.1.509357.3.579. 2.462 Unknown [id number] 2.16.840.1.725805.3.579. 2.462 Unknown [id number] 2.16.840.1.372649.3.579. 2.462 Unknown [id number] 2..840.1.789168.3.579. 2.462 Unknown [id number] 2.840.1.628939.3.579. 2.462 Unknown [id number] 2.840.1.247383.3.579. 2.462 Unknown [id number] 2.840.1.097833.3.579. 2.462 Unknown [id number] 2.840.1.254713.3.579. 2.462 Unknown [id number] 2.840.1.823785.3.579. 2.462 Unknown [id number] 2.16.840.1.783545.3.579. 2.462 Unknown [id number] 2.840.1.883385.3.579. 2.462 Unknown [id number] 2.16840.1.650273.3.579. 2.462 Unknown [id number] 2.16840.1.372394.3.579. 2.462 Unknown [id number] 2.16.840.1.108876.3.579. 2.462 Unknown [id number] 2.16.840.1.665734.3.579. 2.462 Unknown [id number] 2.16840.1.684392.3.579. 2.462 Unknown [id number] 2.16.840.1.211449.3.579. 2.462 Unknown [id number] 2.16.840.1.166384.3.579. 2.462 Unknown [id number] 2.16.840.1.389713.3.579. 2.462 Unknown [id number] 2.16.840.1.367718.3.579. 2.462 Social History Date Type Detail Facility Tobacco smoking status [facility] Unknown if ever smoked [facility] Work Phone: Start: 11-04-2019 Never Smoker [facility] Start: 10-29-2019 No History [facility] Start: 10-29-2019 up to date / s hingle up to date [facility] Start: 1940 Sex Assigned At Female T he [facility] Start: 11-05-2024 End: 2025 Tobacco smoking status [facility] Never smoked tobacco [facility] Start: 11-05-2024 Tobacco use and exposure Smokeless tobacco non-user [facility] Start: 11-05-2024 End: 07-17-2025 Alcoholic beverage intake Lifetime non-drinker (finding) [facility] Start: 11-05-2024 End: 04-17-2025 History of Social function [facility] Start: 11-05-2024 End: 04-17-2025 Tobacco use panel [facility] Start: 10-13-2024 National Score (1-100), lower number is lower risk 72 [facility] Start: 1940 Sex assigned at Not on file [facility] Start: 12-10-2024 Education 15 [facility] Start: 03-01-2025 Tobacco smoking status [facility] Tobacco smoking consumption unknown (finding) [facility] Start: 03-01-2025 End: 07-27-2025 Sex Female (finding) [facility] Has the electric, gas, oil, or water company threatened to shut off services in your home in past 12Mo No [facility] Are you now , , , , never or living with a partner? [facility] How often to you hav e a drink containing alcohol? Never [facility] How hard is it for you to pay for the very basics like food, housing, medical care, and heating Not very hard [facility] Do you feel stress - tense, restless, nervous, or anxious, or unable to sleep at night because your mind is troubled all the time - these days [OSQ] Very much [facility] (I/We) worried whether (my/our) food would run out before (I/we) got money to buy more. Never true [facility] Tobacco smoking status [facility] NEGATED: Highlighted row Not [facility] Medical Equipment Procedure Code Equipment Code Equipment Origin al Text Equipment Identifier Dates ORIF, hip, using Gamma nail ([id number]) Orthopaedic bone screw, non-bioabsorbable, sterile [id number] FDA Start: 03-02-2025 ORIF, hip, using Gamma nail ([id number]) Femur nail, sterile [id number] FDA Start: 03-02-2025 Goals Date Patient Goal Desired Activity /State Functional Status Date Assessment Result Facility 06-25-2025 Functional status Ambulates [facility] Work Phone: 04-17-2025 Total score [AUDIT-C] 0 04/17/20 25 9:21 AM EDT User, Lynne [facility] 04-17-2025 How often to you hav e a drink containing alcohol? Never 04/17/2025 9:21 AM EDT User, Mychart Never [facility] 04-17-2025 Functional status Patient does n ot drink 04/17/2025 9:21 AM EDT User, Lynne Patient does not drink [facility] 04-17-2025 How often do you hav e 6 or more drinks on 1 occasion? Never 04/17/2025 9:21 AM EDT User, Chikit Never [facility] 03-19-2025 Functional status Chair [facility] Work Phone: 03-18-2025 Functional status Tolerates Activity Well [facility] Work Phone: 03-12-2025 Functional status Ambulates [facility] Work Phone: 03-11-2025 Functional status Tolerates Activity Fair [facility] Work Phone: 03-04-2025 Functional status Back to bed [facility] Work Phone: Mental Status Date Assessment Result Facility 2025 Cognitive function Voice/Name [facility] [facility] Work Phone: 06-25-2025 Cognitive function Appropriate;C ooperative;Anxio us [facility] Work Phone: 06-24-2025 Cognitive function Voice[facility]Name [facility] Work Phone: 05-17-2025 Cognitive function Voice/Name [facility] Work Phone: 03-19-2025 Cognitive function Voice/Name [facility] Work Phone: 03-12-2025 Cognitive function [facility] Work Phone: 03-11-2025 Cognitive function Voice/Name [facility] Work Phone: 03-04-2025 Cognitive function Voice/Name [facility] Work Phone: 01-17-2025 Cognitive function Voice/Name [facility] Work Phone: Clinical Notes 11-05-2024 to 2025 Note Date & Type Note Facility 2025 Discharge summary [facility] 2025 Discharge summary Note Date/Time 2025 3:56pm [facility] Medical Records Department [address] [place] [address] Emergency Department Summary 08/17/25 MR#: [id number] Acct: [id number] Name: MICHAELA BRANDT [facility][id number] 1940 85 From: Domingo Darby MD PCP: Dr. Anaid Santiago MD Status:REG E R Location: ED HPI History of Present Illness Chief Complaint: Confusion Informant: patient and family (Daughter at bedside who is power of workers compensation defense attorney.) Onset/Context/Timing Onset: Today and Yesterday Context: Gradual Onset Timing: Continuous Current Severity: Mild Maximum Severity: Mild Narrative Narrative: 85-year-old female history of hypertension, UTIs, dementia and prior hip fracture. Daughter is concerned she may have a recurrent UTI. She has a chronic indwelling Lizarraga catheter due to urinary retention. Recently she has been more confused and having hallucinations. No recent falls or head injury. No nausea or vomiting. No fever or chills. Prior similar symptoms: Yes Recent Illness/Hospitalization: Yes PFSH [facility] Medical History Abnormal finding on urinalysis Generalized weakness Fall Closed intertrochanteric fracture of left hip Fall Hypothyroidism Anxiety Dementia Self-catheterizes urinary bladder Hypertension Back pain Home Medications ?Medication ?Instructions ?Recorded ?Last Taken ?Type ascorbic acid (vitamin C) 500 mg 500 mg PO DAILY suppl ement 03/01/25 08/17/25 History tablet (C-500) donepezil 10 mg tablet 10 mg PO DAILY dementia 02/1708/17/25 History levothyroxine 50 mcg tablet 50 mcg PO DAILY thyroid 08/17/25 History trazodone 50 mg tablet 50 mg PO QHS anxiety 5 08/16/25 History buspirone 5 mg tablet 5 mg PO BID 06/20/25 5 History cholecalciferol (vitamin D3) 125 125 mcg PO DAILY 01/1308/17/25 History mcg (5,000 unit) capsule citalopram 20 mg tablet 20 mg PO DAILY 07/22/2507/21 History furosemide 20 mg tablet 20 mg PO .COMPLEX PRN swelli ng 07/22/25 Unknown History acetaminophen 500 mg tablet 1,000 mg PO Q8 PRN fever o r pain 08/17/25 Unknown History clonazepam 0.5 mg tablet 0.5 mg PO Q8H PRN anxiety 08/16/25 History nitrofurantoin 100 mg PO BID uti 10 days #2 0 caps 08/17/25 Unknown Rx monohydrate/macrocrystals 100 mg capsule (Macrobid) Allergy/AdvReac Type Severity Reaction Status Date / Time No Known Allergies Allergy Verified 07/31/25 18:08 Family History Other Hypertension Surgical History H/O: hysterectomy Status post right knee replacement Social History household members: none housing: apartment current occupational status: retired other: Daughter lives a few doors down helps her on a regular basis Smoking Status: Never smoker alcohol intake: never substance use type: does not use ROS ROS ED ROS Narrative No recent illness. More confused. Constitutional Constitutional ED: Denies chills or fever(s) Eyes Eyes: Denies blurry vision ENT ENT ED: Denies ear pain Cardiovascular Cardiovascular: Denies chest pain Respiratory/Chest Respiratory/Chest: Denies cough or dyspnea Gastrointestinal Gastrointestinal: Denies abdominal pain Genitourinary Genitourinary ED: Reports other Details: Chronic indwelling Lizarraga catheter. ; Denies dysuria, hematuria or urinary frequency Musculoskeletal Musculoskeletal: Denies arthralgias or back pain Integumentary Denies abscess or Abrasions Neurologic Neurologic: Denies headache(s) Psychiatric Psychiatric: Denies anxiety or depression Endocrine Endocrinology: Denies cold intolerance Hematologic/Lymphatic Hematologic/Lymphatic: Reports none Allergic/Immunologic Allergic/Immunologic ED: Denies mouth swelling, tongue swelling or urticaria EXAM Physical Exam Narrative Exam Narrative: 85-year-old female sitting upright in bed. Vital signs stable afebrile. Pulse ox 9% on room air no signs hypoxia. Patient no distress. Family at bedside. HEENT exam pupils round react light. Moist mutes membranes. Neck nontender no JVD. No lymphadenopathy. Back nontender. Lungs clear to auscultation. Heart regular rhythm no murmur rate about 60. Chest wall ribs nontender. Abdomen soft nontender. No peritoneal signs. Moving all 4 extremities. Normal cutter down strength. Normal dorsi plantarflexion. Nontender no edema. Neurologically sheis awake alert. Answering questions. Follows commands. She does have dementia. Has some confusion. No focal motor deficits. She has a chronic indwelling Lizarraga catheter. The urine is mildly cloudy. There is no gross blood. Const Vital Signs: 08/17/25 10:52 08/17/25 12:52 08/17/25 14:00 Temperature 97.6 F L Temperature Source Oral Pulse Rate 62 54 L 49 L Respiratory Rate 16 12 14 Blood Pressure 129/65 H 137/64 H 156/72 H Blood Pressure Mean 86 88 100 Pulse Ox 100 98 100 Oxygen Delivery Method Room Air Room Air Room Air 08/17/25 15:53 Temperature 98 F Temperature Source Pulse Rate 83 Respiratory Rate 14 Blood Pressure 114/96 H Blood Pressure Mean 102 Pulse Ox 99 Oxygen Delivery Method Positive well nourished and well developed; Negative for cachectic, contracturesor unkempt General Appearance ED: well developed and NAD; Negative for unkempt, cachectic, contractures, cyanotic, diaphoretic or pallor Nutritional Appearance: Negative for cachectic HEENT Reports moist mucous membranes Negative for trauma or tenderness Eyes PERRL and EOMs intact bilaterally Neck no lymphadenopathy, supple and no JVD Chest Wall inspection of chest normal and palpation of chest normal Resp normal respiratory effort and clear to auscultation bilaterally Cardio regular rate, regular rhythm, S1 normal heart sound, S2 normal heart sound and no murmurs GI normal to inspection, nondistended, normoactive bowel sounds, non-tender, non-distended and no masses Auscultation: normoactive bowel sounds Palpation: soft; Negative for tender, guarding, splenomegaly, mass or rebound tenderness present Back/Spine no CVA tenderness General Back: Negative for CVA tenderness Cervical Spine: Negative for cervical spine tenderness Thoracic Spine / Upper Back: Negative for thoracic spinal tenderness or paraspinal muscle tenderness Lumbar Spine / Lower Back: Negative for lumbar spinal tenderness Extremity normal to inspection General Extremety ED: Negative for edema or tenderness General Extremity: Negative for edema Neuro No oriented x3 and CN's II-XII intact bilaterally Neuro Narrative: Awake alert. Baseline confusion. Dementia. Answering questions. Following commands. Sensorium / Orientation: alert Motor Exam: strength 5/5 throughout Psych mental status grossly normal Appearance: Negative for unkempt Skin no rashes or lesions noted, no wounds and skin turgor normal General Skin Exam: Negative for jaundice or pallor Lesions: No lesion noted Rashes: No rashes noted Trauma: Negative for abrasion Wounds: Negative for wounds noted MDM MDM MDM Narrative Medical decision making narrative: 85-year-old female possible UTI. Exam benign. UA and screening labs to be obtained. Repeat exam at 3:47 PM patient doing well. Unchanged. Discussed test results with patient and daughter. I looked at her last few urine cultures they were sensitive to multiple different antibiotics. She will be started on Macrobid twice a day for 10 days. First dose given here. Urine culture be sent. Discussed all this with the daughter she is comfortable with the plan. Outpatient follow-up. History & Record Review Discussion w/independent historian: Patient and Family Additional record(s) reviewed:: Prior inpatient record, Prior outpatient record,Prior ED visit and Prior labs Lab Data Attestation: I reviewed the patient's lab results. Lab results narrative: CBC shows a white count Jh 0.7. H&H 13 and 39. Platelets 193. Electrolytes show a gap of 11. BUN and creatinine are normal at 18 and 0.8. Glucose is 68. Urinalysis cloudy. Positive nitrates. Greater than 100 white cells. 3+ bacteria. Treated for UTI. Urine culture be sent. Labs: Laboratory Results - last 24 hr 08/17/25 08/17/25 11:45 12:00 WBC 11.7 H RBC 4.51 Hgb 13.5 Hct 39.9 MCV 88.5 MCH 29.9 MCHC 33.8 RDW Std Deviation 43.8 RDW Coeff of Leslie 13.6 Plt Count 193 MPV 10.1 Immature Gran % (Auto) 0.500 Neut % (Auto) 83.7 H Lymph % (Auto) 9.1 L Beltrami % (Auto) 5.3 Eos % (Auto) 0.9 Baso % (Auto) 0.5 Absolute Neuts (auto) 9.8 H Absolute Lymphs (auto) 1.06 Nucleated RBC % 0 Sodium 142 Potassium 3.5 Chloride 105 Carbon Dioxide 25.5 Anion Gap 11 BUN 18 Creatinine 0.82 Est GFR (MDRD) Non-Af 70 BUN/Creatinine Ratio 22.2 H Glucose 68 L Calcium 9.2 Urine Color Yellow Urine Clarity Cloudy Urine pH 6.0 Ur Specific Dulce 1.020 Urine Protein 30 H Urine Glucose (UA) Normal Urine Ketones Negative Urine Occult Blood 150 H Urine Nitrite Positive H Urine Bilirubin Negative Urine Urobilinogen Normal Ur Leukocyte Esterase 500 H Urine RBC 0 SEEN Urine WBC >100 SEEN Ur Squamous Epith Cells 0 SEEN Calcium Oxalate Crystal 1+ Urine Bacteria 3+ Urine Mucus 0 SEEN Discharge Plan Triage Chief Complaint: Confusion ED Provider: Domingo Darby Dx/Rx/DC Orders Clinical Impression: Acute UTI, Dementia, Hypertension Instructions: UTIs Prescriptions: New nitrofurantoin monohyd/m-cryst [Macrobid] 100 mg capsule 100 mg PO BID 10 Days Qty: 20 0RF Rx Instructions: must administer with a meal/food No Action buspirone 5 mg tablet 5 mg PO BID cholecalciferol (vitamin D3) 125 mcg (5,000 unit) capsule 125 mcg PO DAILY citalopram 20 mg tablet 20 mg PO DAILY furosemide 20 mg tablet 20 mg PO .COMPLEX PRN (Reason: swelling) Rx Instructions: 20 mg orally 2xw PRN; trazodone 50 mg tablet 50 mg PO QHS donepezil 10 mg tablet 10 mg PO DAILY levothyroxine 50 mcg tablet 50 mcg PO DAILY ascorbic acid (vitamin C) [C-500] 500 mg tablet 500 mg PO DAILY clonazepam 0.5 mg Tablet 0.5 mg PO Q8H PRN (Reason: anxiety) Rx Instructions: family states only taking at hs acetaminophen 500 mg Tablet 1,000 mg PO Q8 PRN (Reason: fever or pain) Primary Care Provider: Anaid Santiago Referrals: Anaid Santiago MD [Primary Care Provider, Internal Medicine] - 1 Week Activity Restrictions/Additional Instructions: UTI again. Urine culture will be sent. Started on the antibiotic Macrobid 1 pill twice a day for 10 days. Follow-up with your doctor to ensure you are improving. Plenty of fluids and rest. Return if worse. Print Language: Macanese Disposition Disposition: Home, Self Care What to do if you have Problems For any increased pain, shortness of breath, bleeding, nausea or vomiting, chestpain, or any unexpected problems, contact your Primary Care Provider. Call [facility] ([phone]) or report to the closest Emergency Room. Call 911 if necessary. 08/17/25 [id number] <Electronically signed by Domingo Darby MD> Cosigner Signature (if applicable): CC: Dr. Anaid Santiago MD ~ Signed [facility] Work Phone: 1(147) 250-157109-17-2025 Progress note Author Lisa Lobato [facility] Note Date/Time August 05, 2025 1:16pm [facility] [address] [place] [address] Progress Note - Wound Care 08/05/25 1311 MR#: [id number] Acct: [id number] Name: MICHAELA BRANDT Rep #:[id number] 020 : 1940 84 From: Lisa Lobato STERILE PROCESSING TECH STERILE PROCESSING TECH-C PCP: Dr. Anaid Santiago MD Status:REG R CR Location: History of Present Illness Date of Service: 08/05/25 Chief Complaint: Follow-up on her bilateral buttocks open wounds from pressure. History of Wound: 84-year-old white female that apparently had fallen back in February and broke her hip had surgery [facility] a [facility] until abouta week and a half ago and now lives with her daughter and son-in-law. He is thehead of the [facility] and has brought her in today. He states she has a little bit of dementia but she does walk with her walker when prodded and eats okay and has been eating drinking boost at least once a day. 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 She also has incontinence of stool which is apparent on exam. She has a butterfly shaped open wound on her buttocks right and left into the coccyx. Son-in-law is not sure if this startedin the hospital or at the [facility] but she was getting zinc oxide on her buttocks. They do not have a special mattress for her on her bed she does sit on a doughnut on her chair. Progress of Wound: Today her son-in-law was with her who is actually doing the dressing changes he has some medical background he runs [facility]. And he has been helping her offload by only letting her lay on her sides. She is the one that has the right and left buttock actually its her sacral area it is a butterfly cluster we are calling it well the left side of the cluster is completely healed. I debrided off any dried skin and nipped away any looseskin. So now are just dealing with the right side of her sacral area which is much smaller than it was last week even. She continues to use Aquacel extra andmoistened with a foam dressing. And we did order some of the butterfly shaped dressings for her for padding it is mostly shearing from the sheets that is causing this. Subjective Subjective The son-in-law has been very good about keeping her off her back and she is healing very quickly and that it should be much longer before the cluster will be done its mostly on her right side that is open. Objective Data Objective Data The buttocks is healing well there is no sign of infection the flesh color of the skin is there is no redness no discoloration it is healing very nicely. No depth it is going to be superficial in depth. Vital Signs: Vital Signs Temp Pulse Resp BP O2 Del Method 98.1 F 61 14 113/66 Room Air 08/05/25 09:40 08/05/25 09:40 08/05/25 09:40 08/05/25 09:40 07/29/25 09:43 Oxygen Delivery Method Room Air Weight: 123 lb Body Mass Index (BMI) 23.2 Lab / Micro Data Attestation: I reviewed the patient's lab results. Physical Exam Const General Appearance: cooperative HEENT normocephalic Face and Sinus: normal facial exam External Ear: external ears normal Eyes PERRL General Eye: normal appearance of both eyes Neck full ROM General: normal visual inspection Resp normal respiratory effort Cardio regular rate and regular rhythm Palpation: normal PMI Rate: regular rate Rhythm: regular rhythm external exam normal Back/Spine Cervical Spine: cervical ROM normal Thoracic Spine / Upper Back: normal to inspection Lumbar Spine / Lower Back: normal to inspection Extremity normal to inspection Skin Wounds: wounds noted Wound Narrative: Butterfly shaped open wound superficial on bilateral right and left buttocks andsacral area Psych Appearance: grossly normal Speech: normal speech Debridement Note Debridement Note Wound debrided: Bilateral buttocks and sacrum area Laterality: Left Wound Grade/Stage: Stage II Type of Debridement: Excisional debridement Anesthesia Used: 5% Lidocaine Gel Depth: in the subcutaneous layer Percentage of wound debrided: 100 Instrument Used: 5mm curette Tissue Removed: Fibrin Severity: Limited To Skin Breakdown Amount of bleeding with debridement: Mild Bleeding Controlled with: Compression and gauze Patient tolerated procedure: Patient tolerated procedure well Post-Debridement Measurements and Additional Note: Post-Debridement Measurements/Treatment WC - Nurse 1 - General Ulcer Assessment Start: 07/22/25 09:18 Freq: Status: Active Protocol: DEYANIRA Activity Type Activity Date Activity User E-sign Co-sign Detail Recorded Client Recorded Date Recorded By Document 07/22/25 09:25 RB [id number] 07/22/25 09:32 RB Document 07/29/25 09:43 MT [id number] 07/29/25 09:53 MT Document 08/05/25 09:40 DL [id number] 08/05/25 09:46 DL 07/22/25 07/29/25 08/05/25 09:25 09:43 09:40 WC - Today's Visit Information Type of service Initial Visit Follow-up Visit Follow-up Visit (Physician/INSIGHT DIRECTOR (Physician/INSIGHT DIRECTOR ) ) Arrival Mode Ambulatory Ambulatory Wheelchair Transfer Assistance None None Accompanied by son in law Patient Identification Verified (Name & Yes Yes Yes ) Patient Requires Transmission-Based No No Precautions Safety Precautions Fall Prevention Height and Weight Height 5 ft 1 in Weight 123 lb Weight in Pounds 123.0 lbs Body Mass Index (BMI) 23.2 23.2 23.2 BMI Classification Normal Normal Normal Vital Signs Temperature (97.8 F-99.1 F) 97.4 F L 98 F 98.1 F Temperature Source Temporal Temporal Temporal Pulse Rate (60-100) 67 56 L 61 Pulse Location Monitor Monitor Monitor Respiratory Rate (12-18) 18 18 14 Respiratory rate source Observation Observation Observation Oxygen Delivery Method Room Air Blood Pressure (90/60-120/80) 129/60 H 118/60 113/66 Blood Pressure Mean (mm Hg) 83 79 81 Source Monitor Monitor Monitor Position Semi-Fowlers Sitting Blood Pressure Location Left Arm Right Arm History Since Last Visit- (Skip if this is Patient's initial visit) Have you changed medications since your No No last visit? Any new allergies or adverse reactions No No Had a fall/change in ADL's that may No No increase risk of falls Signs or symptoms of abuse and/or No No neglect since last visit Have you been in the hospital since your No No last visit? Has dressing in place as prescribed Yes Yes Yes Has compression in place as prescribed N/A Yes N/A Has offloadiing in place as prescribed N/A Yes Yes Experienced any changes in pain level or No Yes No management Left Footwear Regular Shoe Regular Shoe Right Footwear Regular Shoe Regular Shoe Pain Scale: 0-10 Numeric Is Patient Pain Free? No Yes Yes buttock -Description Aching -Intensity 5 -Duration (hours) Acute -Pain Behavior Withdrawal from Touch -Pain Aggravating Factors ADL's -Alleviating Factors/Interventions None Communication Assessment Preferred language Macanese Heavy Equipment Plumbing Supervisor Required No Able to Read Yes Able to Write Yes Communication Tools None Caregiver Communication Skills No Impairment Impairment Right Hearing Abillity Normal Left Hearing Abillity Normal Visual Assistive Devices Glasses Teaching Assessment Preferences Verbal,Written, Demonstration Barriers to Learning Knowledge Deficit Readiness To Learn Poor Willingness to Engage in Self Management Low Activies Readiness to Engage in Self Management Low Activities Anxiety Level Calm Cooperation Cooperative Perception Coherent Interest in Health Problem Asks Questions Education Importance Acknowledges Need Does Patient Smoke tobacco or other No substances Smoking Status Never smoker Is Patient Diabetic Yes Functional Assessment Recent Decline in Ability to Perform Ambulation, Bathing,Eating/ Feeding Assistive Device With Patient No Culture/Jewish/Preventative Maintenance Technician Cultural/Jewish Needs that may affect No Treatment Plan Would you allow our hospital call circuit worker to No meet you for the purpose of spiritual/ emotional support? Preventative Maintenance Technician to contact place of buddhist No Teaching: Wound Center *Welcome to the Wound Center -Person Taught Patient,Family -Teaching Method Discussion, Demonstration -Response to teaching Verbalize Understanding - Nurse 1 - General Ulcer Measurement Start: 07/22/25 09:18 Freq: Status: Active Protocol: Activity Type Activity Date Activity User E-sign Co-sign Detail Recorded Client Recorded Date Recorded By Document 07/22/25 09:25 RB [id number] 07/22/25 09:32 RB Document 07/29/25 09:43 MT [id number] 07/29/25 09:53 MT Document 08/05/25 09:40 DL [id number] 08/05/25 09:46 DL 07/22/25 07/29/25 08/05/25 09:25 09:43 09:40 Wound Center Nurse 1 1. RIGHT/LEFT BUTTOCK CLUSTER -Combined with other wound No No -Current Size (cm) - Length 5.2 3.6 3.3 -Current Size (cm) - Width 5.4 1.5 1.2 -Current Size (cm) - Depth 0.1 0.1 0.1 -Total Square Cm 28.08 5.40 3.96 -Photo Taken Yes Yes Yes -Tunneling No No -Undermining/Tunneling No No -Circular Undermining No No -Exudate Amt Medium Medium Medium -Exudate Type Serosanguineous Serosanguineous Serosanguineous -Wound Margin Distinct, Distinct, Distinct, Outline Outline Outline Attached Attached Attached -Granulation Amt Medium (34-66%) Medium (34-66%) Medium (34-66%) -Granulation Quality Plain Dealing Plain Dealing Red -Slough/Fibrin Yes Yes -Necrosis Amt Medium (34-66%) Medium (34-66%) Medium (34-66%) -Necrotic Tissue Type Adherent Slough Adherent Slough Adherent Slough -Structure Exposed N/A N/A N/A -Texture (Hillary-wound Skin Appearance) Assessed, Assessed Scarring Excoriation -Moisture (Hillary-wound Skin Appearance) Assessed Assessed No Abnormality -Color (Hillary-wound Skin Appearance) Assessed Assessed No Abnormality -Temperature (Hillary-wound Skin No Abnormality No Abnormality No Abnormality Appearance) (Pt Warm) (Pt Warm) (Pt Warm) -Tenderness on Palpation (Hillary-wound No No No Skin Appearance) -Ulcer Cleansing Wound Cleanser Wound Cleanser Soap and Water -Foul Odor after Cleansing No No No -Anesthetic Used 5% Lidocaine 5% Lidocaine 5% Lidocaine Gel Gel Gel WC - Nurse 2 - General Ulcer CM Notes Start: 07/22/25 09:18 Freq: Status: Active Protocol: Activity Type Activity Date Activity User E-sign Co-sign Detail Recorded Client Recorded Date Recorded By Document 07/22/25 10:04 BMF [id number] 07/22/25 10:14 BMF Edit Result 07/22/25 10:04 BMF (1) [id number] 07/23/25 13:55 BMF Document 07/29/25 09:56 BMF [id number] 07/29/25 10:04 BMF Document 08/05/25 09:52 BMF [id number] 08/05/25 09:56 BMF (1) 1. RIGHT/LEFT BUTTOCK CLUSTER - Debridement, SubQ, ea addt'l 20sq cm => 1 or part thereof 07/22/25 07/29/25 08/05/25 10:04 09:56 09:52 Wound Center Nurse 2 1. RIGHT/LEFT BUTTOCK CLUSTER -Time 10:06 09:57 09:52 -Correct Patient Yes Yes Yes -Correct Side, Site, Position Yes Yes Yes -Correct Procedure Yes Yes Yes -Procedure Performed Yes Yes Yes -Type of Procedure Debridement Debridement Debridement -Clinical Debridement Subcutaneous Subcutaneous Subcutaneous -Tissue Removed Subcutaneous Subcutaneous Subcutaneous -Post Debridement (cm) - Length 6 4 3.5 -Post Debridement (cm) - Width 6 1 1 -Post Debridement (cm) - Depth 0.1 0.2 0.1 -Total Square (Post) (cm) 36 4 3.5 -Area of Debridement (cm) - Length 6 4 3.5 -Area of Debridement (cm) - Width 6 1 1 -Total Square (Area) (cm) 36 4 3.5 -Tunneling No No No -Undermining/Tunneling No No No -Circular Undermining No No No -Wound/Ulcer Outcome Not Healed Not Healed Not Healed -Ulcer Cleansing Rinsed/ Rinsed/ Rinsed/ Irrigated with Irrigated with Irrigated with Saline Saline Saline -Foul Odor after Cleansing No No No -Bioengineered Tissue No No No -Bleeding Controlled with Pressure Pressure Pressure -Treatment Response Procedure Procedure Procedure Tolerated Well Tolerated Well Tolerated Well -Debridement - Subq, 1st 20sq cm Yes Yes Yes -Debridement, SubQ, ea addt'l 20sq cm 1 or part thereof Pain Scale: 0-10 Numeric Is Patient Pain Free? Yes Yes Yes - Nurse 3 - General Ulcer D/C NN Start: 07/22/25 09:18 Freq: Status: Active Protocol: Activity Type Activity Date Activity User E-sign Co-sign Detail Recorded Client Recorded Date Recorded By Document 07/22/25 10:44 RB [id number] 07/22/25 10:45 RB Document 07/29/25 10:22 DL [id number] 07/29/25 10:23 DL Document 08/05/25 10:14 RB [id number] 08/05/25 10:15 RB 07/22/25 07/29/25 08/05/25 10:44 10:22 10:14 Wound Care Center Nurse 3 1. RIGHT/LEFT BUTTOCK CLUSTER -Ulcer Cleansing Rinsed/ Soap and Water Rinsed/ Irrigated with Irrigated with Saline Saline -Foul Odor after Cleansing No -Primary Dressing Applied Aquacel Extra, Aquacel Extra, Aquacel Extra, Silicone Border Sacral Foam Silicone Border Foam 6x6 Border Foam 4x4 -Aquacel Extra 1 1 1 -Sacral Foam Border 1 -Silicone Border Foam 4x4 1 -Silicone Border Foam 6x6 1 Treatment Response Procedure Procedure Procedure Tolerated Well Tolerated Well Tolerated Well Pain Scale: 0-10 Numeric Is Patient Pain Free? Yes Yes Yes WC - Visit Discharge Discharge Condition Stable Stable Stable Ambulatory Status Wheelchair Wheelchair Wheelchair Transportation Private Auto Private Auto Private Auto Accompanied by SON IN LAW son Medication Reconcilliation completed & No No provided to patient/care provider Clinical Summary of Care Provided Yes Yes Notes: 2 PERSON ASSIST TO WHEELCHAIR Facility Type Home Health Orders Sent Yes Assessment/Plan Assessment/Plan (1) Urinary retention: CODE(S): R33.9 - Retention of urine, unspecified (2) Fecal incontinence: CODE(S): R15.9 - Full incontinence of feces QUALIFIERS: Fecal incontinence type: unspecified Qualified Code(s): R15.9 - Full incontinence of feces (3) Decubitus ulcer of buttock, stage 2: CODE(S): L89.302 - Pressure ulcer of unspecified buttock, stage 2 QUALIFIERS: Laterality: right Qualified Code(s): L89.312 - Pressure ulcer of right buttock, stage 2 PLAN: Wash buttocks and sacral area with antibacterial soap and water apply Aquacel extra to wound base moistened and then cover with a ABD pad daily and asneeded if Becomes soiled Follow-up in 1 week Continue to rotate in bed every hour. Offload is much as possible with a Roho pad under her buttocks when seated in chairs Encourage patient to move frequently and walk increase food intake with protein and 60 g of protein a day. Patient did like the Shashi and started taking it daily (4) Decubitus ulcer of sacral area: CODE(S): L89.159 - Pressure ulcer of sacral region, unspecified stage QUALIFIERS: Pressure injury stage: stage 2 Qualified Code(s): L89.152 - Pressure ulcer of sacral region, stage 2 (5) Decubitus ulcer of left buttock, stage 2: CODE(S): L89.322 - Pressure ulcer of left buttock, stage 2 08/05/25 1316 <Electronically signed by Lisa Lobato NP STERILE PROCESSING TECH-C> Cosigner Signature (if applicable): CC: ~ Signed [facility] Work Phone: [phone] Progress note [facility] [address] [place] [address] Progress Note - Wound Care 08/05/25 1311 MR#: [id number] Acct: [id number] Name: MICHAELA BRANTD Rep #:[id number] : 1940 84 From: Lisa Lobato NP STERILE PROCESSING TECH-C PCP: Dr. Anaid Santiago MD Status:REG R CR Location: History of Present Illness Date of Service: 08/05/25 Chief Complaint: Follow-up on her bilateral buttocks open wounds from pressure. History of Wound: 84-year-old white female that apparently had fallen back in February and broke her hip had surgery [facility] abouta week and a half ago and now lives with her daughter and son-in-law. He is thehead of the [facility] and has brought herin today. He states she has a little bit of dementia but she does walk with her walker when proddedand eats okay and has been eating drinking boost at least once a day. 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 She also has incontinence of stool which is apparent on exam. She has a butterfly shaped open wound on her buttocks right and left into the coccyx. Son-in-law is not sure if this startedin the hospital or at the [facility] but she was getting zinc oxide on her buttocks. They do not have a special mattress for her on her bed she does sit on a doughnut on her chair. Progress of Wound: Today her son-in-law was with her who is actually doing the dressing changes he has some medical background he runs [facility]. And he has been helping her offload by only lettingher lay on her sides. She is the one that has the right and left buttock actually its her sacral area it is a butterfly cluster we are calling it well the left side of the cluster is completely healed. I debrided off any dried skin and nipped away any looseskin. So now are just dealing with the right side of her sacral area which is much smaller than it was last week even. She continues to use Aquacel extra andmoistened with a foam dressing. And we did order some of the butterfly shaped dressings for her for padding it is mostly shearing from the sheets that is causing this. Subjective Subjective The son-in-law has been very good about keeping her off her back and she is healing very quickly and that it should be much longer before the cluster will be done its mostly on her right side that isopen. Objective Data Objective Data The buttocks is healing well there is no sign of infection the flesh color of the skin is there is no redness no discoloration it is healing very nicely. No depth it is going to be superficial in depth. Vital Signs: Vital Signs Temp Pulse Resp BP O2 Del Method 98.1 F 61 14 113/66 Room Air 08/05/25 09:40 08/05/25 09:40 08/05/25 09:40 08/05/25 09:40 07/29/25 09:43 Oxygen Delivery Method Room Air Weight: 123 lb Body Mass Index (BMI) 23.2 Lab / Micro Data Attestation: I reviewed the patient's lab results. Physical Exam Const General Appearance: cooperative HEENT normocephalic Face and Sinus: normal facial exam External Ear: external ears normal Eyes PERRL General Eye: normal appearance of both eyes Neck full ROM General: normal visual inspection Resp normal respiratory effort Cardio regular rate and regular rhythm Palpation: normal PMI Rate: regular rate Rhythm: regular rhythm external exam normal Back/Spine Cervical Spine: cervical ROM normal Thoracic Spine / Upper Back: normal to inspection Lumbar Spine / Lower Back: normal to inspection Extremity normal to inspection Skin Wounds: wounds noted Wound Narrative: Butterfly shaped open wound superficial on bilateral right and left buttocks andsacral area Psych Appearance: grossly normal Speech: normal speech Debridement Note Debridement Note Wound debrided: Bilateral buttocks and sacrum area Laterality: Left Wound Grade/Stage: Stage II Type of Debridement: Excisional debridement Anesthesia Used: 5% Lidocaine Gel Depth: in the subcutaneous layer Percentage of wound debrided: 100 Instrument Used: 5mm curette Tissue Removed: Fibrin Severity: Limited To Skin Breakdown Amount of bleeding with debridement: Mild Bleeding Controlled with: Compression and gauze Patient tolerated procedure: Patient tolerated procedure well Post-Debridement Measurements and Additional Note: Post-Debridement Measurements/Treatment WC - Nurse 1 - General Ulcer Assessment Start: 07/22/25 09:18 Freq: Status: Active Protocol: DEYANIRA Activity Type Activity Date Activity User E-sign Co-sign Detail Recorded Client Recorded Date Recorded By Document 07/22/25 09:25 RB [id number] 07/22/25 09:32 RB Document 07/29/25 09:43 MT [id number] 07/29/25 09:53 MT Document 08/05/25 09:40 DL [id number] 08/05/25 09:46 DL 07/22/25 07/29/25 08/05/25 09:25 09:43 09:40 WC - Today's Visit Information Type of service Initial Visit Follow-up Visit Follow-up Visit (Physician/INSIGHT DIRECTOR (Physician/INSIGHT DIRECTOR ) ) Arrival Mode Ambulatory Ambulatory Wheelchair Transfer Assistance None None Accompanied by son in law Patient Identification Verified (Name & Yes Yes Yes ) Patient Requires Transmission-Based No No Precautions Safety Precautions Fall Prevention Height and Weight Height 5 ft 1 in Weight 123 lb Weight in Pounds 123.0 lbs Body Mass Index (BMI) 23.2 23.2 23.2 BMI Classification Normal Normal Normal Vital Signs Temperature (97.8 F-99.1 F) 97.4 F L 98 F 98.1 F Temperature Source Temporal Temporal Temporal Pulse Rate (60-100) 67 56 L 61 Pulse Location Monitor Monitor Monitor Respiratory Rate (12-18) 18 18 14 Respiratory rate source Observation Observation Observation Oxygen Delivery Method Room Air Blood Pressure (90/60-120/80) 129/60 H 118/60 113/66 Blood Pressure Mean (mm Hg) 83 79 81 Source Monitor Monitor Monitor Position Semi-Fowlers Sitting Blood Pressure Location Left Arm Right Arm History Since Last Visit- (Skip if this is Patient's initial visit) Have you changed medications since your No No last visit? Any new allergies or adverse reactions No No Had a fall/change in ADL's that may No No increase risk of falls Signs or symptoms of abuse and/or No No neglect since last visit Have you been in the hospital since your No No last visit? Has dressing in place as prescribed Yes Yes Yes Has compression in place as prescribed N/A Yes N/A Has offloadiing in place as prescribed N/A Yes Yes Experienced any changes in pain level or No Yes No management Left Footwear Regular Shoe Regular Shoe Right Footwear Regular Shoe Regular Shoe Pain Scale: 0-10 Numeric Is Patient Pain Free? No Yes Yes buttock -Description Aching -Intensity 5 -Duration (hours) Acute -Pain Behavior Withdrawal from Touch -Pain Aggravating Factors ADL's -Alleviating Factors/Interventions None Communication Assessment Preferred language Macanese Heavy Equipment Plumbing Supervisor Required No Able to Read Yes Able to Write Yes Communication Tools None Caregiver Communication Skills No Impairment Impairment Right Hearing Abillity Normal Left Hearing Abillity Normal Visual Assistive Devices Glasses Teaching Assessment Preferences Verbal,Written, Demonstration Barriers to Learning Knowledge Deficit Readiness To Learn Poor Willingness to Engage in Self Management Low Activies Readiness to Engage in Self Management Low Activities Anxiety Level Calm Cooperation Cooperative Perception Coherent Interest in Health Problem Asks Questions Education Importance Acknowledges Need Does Patient Smoke tobacco or other No substances Smoking Status Never smoker Is Patient Diabetic Yes Functional Assessment Recent Decline in Ability to Perform Ambulation, Bathing,Eating/ Feeding Assistive Device With Patient No Culture/Jewish/Preventative Maintenance Technician Cultural/Jewish Needs that may affect No Treatment Plan Would you allow our hospital call circuit worker to No meet you for the purpose of spiritual/ emotional support? Preventative Maintenance Technician to contact place of buddhist No Teaching: Wound Center *Welcome to the Wound Center -Person Taught Patient,Family -Teaching Method Discussion, Demonstration -Response to teaching Verbalize Understanding WC - Nurse 1 - General Ulcer Measurement Start: 07/22/25 09:18 Freq: Status: Active Protocol: Activity Type Activity Date Activity User E-sign Co-sign Detail Recorded Client Recorded Date Recorded By Document 07/22/25 09:25 RB [id number] 07/22/25 09:32 RB Document 07/29/25 09:43 MT [id number] 07/29/25 09:53 MT Document 08/05/25 09:40 DL [id number] 08/05/25 09:46 DL 07/22/25 07/29/25 08/05/25 09:25 09:43 09:40 Wound Center Nurse 1 1. RIGHT/LEFT BUTTOCK CLUSTER -Combined with other wound No No -Current Size (cm) - Length 5.2 3.6 3.3 -Current Size (cm) - Width 5.4 1.5 1.2 -Current Size (cm) - Depth 0.1 0.1 0.1 -Total Square Cm 28.08 5.40 3.96 -Photo Taken Yes Yes Yes -Tunneling No No -Undermining/Tunneling No No -Circular Undermining No No -Exudate Amt Medium Medium Medium -Exudate Type Serosanguineous Serosanguineous Serosanguineous -Wound Margin Distinct, Distinct, Distinct, Outline Outline Outline Attached Attached Attached -Granulation Amt Medium (34-66%) Medium (34-66%) Medium (34-66%) -Granulation Quality Plain Dealing Plain Dealing Red -Slough/Fibrin Yes Yes -Necrosis Amt Medium (34-66%) Medium (34-66%) Medium (34-66%) -Necrotic Tissue Type Adherent Slough Adherent Slough Adherent Slough -Structure Exposed N/A N/A N/A -Texture (Hillary-wound Skin Appearance) Assessed, Assessed Scarring Excoriation -Moisture (Hillary-wound Skin Appearance) Assessed Assessed No Abnormality -Color (Hillary-wound Skin Appearance) Assessed Assessed No Abnormality -Temperature (Hillary-wound Skin No Abnormality No Abnormality No Abnormality Appearance) (Pt Warm) (Pt Warm) (Pt Warm) -Tenderness on Palpation (Hillary-wound No No No Skin Appearance) -Ulcer Cleansing Wound Cleanser Wound Cleanser Soap and Water -Foul Odor after Cleansing No No No -Anesthetic Used 5% Lidocaine 5% Lidocaine 5% Lidocaine Gel Gel Gel WC - Nurse 2 - General Ulcer CM Notes Start: 07/22/25 09:18 Freq: Status: Active Protocol: Activity Type Activity Date Activity User E-sign Co-sign Detail Recorded Client Recorded Date Recorded By Document 07/22/25 10:04 BMF [id number] 07/22/25 10:14 BMF Edit Result 07/22/25 10:04 BMF (1) [id number] 07/23/25 13:55 BMF Document 07/29/25 09:56 BMF [id number] 07/29/25 10:04 BMF Document 08/05/25 09:52 BMF [id number] 08/05/25 09:56 BMF (1) 1. RIGHT/LEFT BUTTOCK CLUSTER - Debridement, SubQ, ea addt'l 20sq cm => 1 or part thereof 07/22/25 07/29/25 08/05/25 10:04 09:56 09:52 Wound Center Nurse 2 1. RIGHT/LEFT BUTTOCK CLUSTER -Time 10:06 09:57 09:52 -Correct Patient Yes Yes Yes -Correct Side, Site, Position Yes Yes Yes -Correct Procedure Yes Yes Yes -Procedure Performed Yes Yes Yes -Type of Procedure Debridement Debridement Debridement -Clinical Debridement Subcutaneous Subcutaneous Subcutaneous -Tissue Removed Subcutaneous Subcutaneous Subcutaneous -Post Debridement (cm) - Length 6 4 3.5 -Post Debridement (cm) - Width 6 1 1 -Post Debridement (cm) - Depth 0.1 0.2 0.1 -Total Square (Post) (cm) 36 4 3.5 -Area of Debridement (cm) - Length 6 4 3.5 -Area of Debridement (cm) - Width 6 1 1 -Total Square (Area) (cm) 36 4 3.5 -Tunneling No No No -Undermining/Tunneling No No No -Circular Undermining No No No -Wound/Ulcer Outcome Not Healed Not Healed Not Healed -Ulcer Cleansing Rinsed/ Rinsed/ Rinsed/ Irrigated with Irrigated with Irrigated with Saline Saline Saline -Foul Odor after Cleansing No No No -Bioengineered Tissue No No No -Bleeding Controlled with Pressure Pressure Pressure -Treatment Response Procedure Procedure Procedure Tolerated Well Tolerated Well Tolerated Well -Debridement - Subq, 1st 20sq cm Yes Yes Yes -Debridement, SubQ, ea addt'l 20sq cm 1 or part thereof Pain Scale: 0-10 Numeric Is Patient Pain Free? Yes Yes Yes - Nurse 3 - General Ulcer D/C NN Start: 07/22/25 09:18 Freq: Status: Active Protocol: Activity Type Activity Date Activity User E-sign Co-sign Detail Recorded Client Recorded Date Recorded By Document 07/22/25 10:44 RB [id number] 07/22/25 10:45 RB Document 07/29/25 10:22 DL [id number] 07/29/25 10:23 DL Document 08/05/25 10:14 RB [id number] 08/05/25 10:15 RB 07/22/25 07/29/25 08/05/25 10:44 10:22 10:14 Wound Care Center Nurse 3 1. RIGHT/LEFT BUTTOCK CLUSTER -Ulcer Cleansing Rinsed/ Soap and Water Rinsed/ Irrigated with Irrigated with Saline Saline -Foul Odor after Cleansing No -Primary Dressing Applied Aquacel Extra, Aquacel Extra, Aquacel Extra, Silicone Border Sacral Foam Silicone Border Foam 6x6 Border Foam 4x4 -Aquacel Extra 1 1 1 -Sacral Foam Border 1 -Silicone Border Foam 4x4 1 -Silicone Border Foam 6x6 1 Treatment Response Procedure Procedure Procedure Tolerated Well Tolerated Well Tolerated Well Pain Scale: 0-10 Numeric Is Patient Pain Free? Yes Yes Yes WC - Visit Discharge Discharge Condition Stable Stable Stable Ambulatory Status Wheelchair Wheelchair Wheelchair Transportation Private Auto Private Auto Private Auto Accompanied by SON IN LAW son Medication Reconcilliation completed & No No provided to patient/care provider Clinical Summary of Care Provided Yes Yes Notes: 2 PERSON ASSIST TO WHEELCHAIR Facility Type Home Health Orders Sent Yes Assessment/Plan Assessment/Plan (1) Urinary retention: CODE(S): R33.9 - Retention of urine, unspecified (2) Fecal incontinence: CODE(S): R15.9 - Full incontinence of feces QUALIFIERS: Fecal incontinence type: unspecified Qualified Code(s): R15.9 - Full incontinence of feces (3) Decubitus ulcer of buttock, stage 2: CODE(S): L89.302 - Pressure ulcer of unspecified buttock, stage 2 QUALIFIERS: Laterality: right Qualified Code(s): L89.312 - Pressure ulcer of right buttock, stage 2 PLAN: Wash buttocks and sacral area with antibacterial soap and water apply Aquacel extra to wound base moistened and then cover with a ABD pad daily and asneeded if Becomes soiled Follow-up in 1 week Continue to rotate in bed every hour. Offload is much as possible with a Roho pad under her buttocks when seated in chairs Encourage patient to move frequently and walk increase food intake with protein and 60 g of protein a day. Patient did like the Shashi and started taking it daily (4) Decubitus ulcer of sacral area: CODE(S): L89.159 - Pressure ulcer of sacral region, unspecified stage QUALIFIERS: Pressure injury stage: stage 2 Qualified Code(s): L89.152 - Pressure ulcer of sacral region, stage 2 (5) Decubitus ulcer of left buttock, stage 2: CODE(S): L89.322 - Pressure ulcer of left buttock, stage 2 08/05/25 1316 Cosigner Signature (if applicable): CC: ~ Signed [facility]09-12-2025 Discharge summary [facility] Medical Records Department [facility] [place] [address] [place] [address] Emergency Department Summary 07/31/25 MR#: [id number] Acct: [id number] Name: MICHAELA BRANDT Rep #:[id number] : 1940 84 From: Reggie Chan MD PCP: Dr. Anaid Santiago MD Status:REG E R Location: ED HPI History of Present Illness Chief Complaint: Complaint Detail of Chief Complaint: Patient pulled out Lizarraga that was inserted yesterday and agitation Informant: patient and family Onset/Context/Timing Onset: Today Context: Sudden Onset Timing: Continuous and Waxes and wanes Quality: Traumatic removal of Lizarraga and confusion Location: and generalized Current Severity: Mild Maximum Severity: Mild Worsened by: Sons concerned she has UTI. When she has increased confusion from her base Relieved by: Nothing Associated Symptoms Associated Symptoms: History of UTI with confusion Narrative Narrative: Patient is an 84-year-old woman. She has history of depression anxiety, dementia, hypothyroidism, urinary retention, who was brought to the emergency room because she pulled out her Lizarraga and has hadincreased confusion. She has history of frequent urinary tract infection due to self-catheterization. The Lizarraga was placed yesterday. Apparently she pulled out to help. She asked if she would have tohave this reinserted. She stated she preferred to self catheter self. Patient denies fever, chills night sweats. Patient denies headache, visual, ocular auditory symptoms. Patient denies abdominal pain, nausea or vomiting. Patient has no urinary symptoms. Patient is awake. Cranials 2 through 12 are intact. She moves all extremities. Patient is pleasant.Patient took offense that her son stated she has dementia. Patient is not oriented. Son states thisis not abnormal. Prior similar symptoms: Yes (Urinary tract infection) Recent Illness/Hospitalization: No PFSH PFSH Medical History Abnormal finding on urinalysis Generalized weakness Fall Closed intertrochanteric fracture of left hip Fall [...] mg PO QHS anxiety 5 06/19/25 History buspirone 5 mg tablet 5 mg PO BID 06/20/25 5 History cholecalciferol (vitamin D3) 125 125 mcg PO DAILY 01/1306/19/25 History mcg (5,000 unit) capsule acetaminophen 500 mg tablet 1,000 mg (2 x 500 mg) PO Q 8 #0 tabs 06/25/25 Unknown Rx clonazepam 0.5 mg tablet 0.5 mg PO Q8H PRN anxiety #6 tabs 06/25/25 Unknown Rx menthol 0.44 %-zinc oxide 20.6 % 1 applic topical BID #0 grams 06/25/25 Unknown Rx topical ointment (Calmoseptine) sennosides 8.6 mg-docusate sodium 2 tab PO BID #0 tabs 06/25/25 Unknown Rx 50 mg tablet (Stimulant Laxative Plus) triamcinolone acetonide 0.1 % 1 applic topical BID #15 grams 06/25/25 Unknown Rx topical cream citalopram 20 mg tablet 20 mg PO DAILY 07/22/25 Unkn own History furosemide 20 mg tablet mg PO 07/22/25 Unknown Histo ry cephalexin 500 mg capsule 500 mg PO Q6 #28 CAPSULES Unknown Rx Allergy/AdvReac Type Severity Reaction Status Date / Time No Known Allergies Allergy Verified 07/31/25 18:08 Family History Other Hypertension Surgical History H/O: hysterectomy Status post right knee replacement Social History household members: none housing: apartment current occupational status: retired other: Daughter lives a few doors down helps her on a regular basis Smoking Status: Never smoker alcohol intake: never substance use type: does not use ROS ROS ED Constitutional Constitutional ED: Denies chills, fever(s) or subjective Eyes Eyes: Denies blurry vision or change in vision Cardiovascular Cardiovascular: Denies chest pain or palpitations Respiratory/Chest Respiratory/Chest: Denies cough, dyspnea or dyspnea on exertion Gastrointestinal Gastrointestinal: Denies abdominal pain, nausea or vomiting Genitourinary Genitourinary ED: Denies dysuria, hematuria or urinary frequency Musculoskeletal Musculoskeletal: Denies back pain Integumentary Denies rash Neurologic Neurologic: Denies headache(s) Hematologic/Lymphatic Hematologic/Lymphatic: Reports systems reviewed and no addt'l complaints, exceptas documented EXAM Physical Exam Const Vital Signs: 07/31/25 18:08 07/31/25 20:39 07/31/25 22:00 Temperature 98.5 F Temperature Source Oral Pulse Rate 66 60 62 Respiratory Rate 18 Blood Pressure 124/59 H 112/70 139/41 H Blood Pressure Mean 80 84 73 Pulse Ox 97 100 91 Oxygen Delivery Method Room Air Positive well nourished and well developed General Appearance ED: well developed and NAD; Negative for pallor HEENT Reports moist mucous membranes HEENT Narrative: Head is atraumatic and normocephalic. Ears normal. Nares patent. Posterior pharynx is normal. Eyes PERRL and EOMs intact bilaterally General Eye ED: Negative for pale conjunctiva or scleral icterus Neck no lymphadenopathy, supple and no JVD Chest Wall inspection of chest normal and palpation of chest normal Resp normal respiratory effort and clear to auscultation bilaterally Cardio regular rate, regular rhythm, S1 normal heart sound, S2 normal heart sound and no murmurs GI normal to inspection, nondistended, normoactive bowel sounds, non-tender, non- distended and no masses; Negative for hepatosplenomegaly Back/Spine no CVA tenderness Extremity normal to inspection Neuro No oriented x3 and CN's II-XII intact bilaterally Neuro Narrative: Awake but not alert. Motor Exam: strength 5/5 throughout Psych mental status grossly normal Skin no rashes or lesions noted, no wounds and No skin turgor normal General Skin Exam: Negative for jaundice or pallor MDM MDM MDM Narrative Medical decision making narrative: Order was placed to reinsert Lizarraga because of urinary retention and infections with self-catheterization. Will obtain UA to rule out infection as well as CBC and basic metabolic panel to assess renalfunction. History & Record Review Additional record(s) reviewed:: Prior inpatient record (Patient was admitted greater than 30 days ago for abnormal urinalysis and lactic acidosis.), Prior outpatient record (Seen at [facility] for sacral decubitus stage II.) and Prior labs Lab Data Attestation: I reviewed the patient's lab results. Lab results narrative: White count is normal. There is a slight shift with increased segs. Basic metabolic panel is not elevated BUN to creatinine ratio of 28:1. Renal functionis normal. Will not need to alter dose of cephalexin. Urine is suggestive of infection with positive protein, occult blood, nitrites and leukoesterase. There is evidence of pyuria with bacteria. Culture was sent and she received her first dose ofcephalexin in the emergency department. Labs: Laboratory Results - last 24 hr 07/31/25 21:07 WBC 10.0 RBC 4.20 Hgb 12.8 Hct 37.1 MCV 88.3 MCH 30.5 MCHC 34.5 RDW Std Deviation 44.5 H RDW Coeff of Leslie 13.7 Plt Count 220 MPV 9.7 Immature Gran % (Auto) 0.600 Neut % (Auto) 72.4 H Lymph % (Auto) 18.7 L Beltrami % (Auto) 6.4 Eos % (Auto) 1.3 Baso % (Auto) 0.6 Absolute Neuts (auto) 7.3 Absolute Lymphs (auto) 1.88 Nucleated RBC % 0 Sodium 140 Potassium 4.1 Chloride 103 Carbon Dioxide 27.4 Anion Gap 9 BUN 21 H Creatinine 0.76 Estim Creat Clear Calc 39.50 L Est GFR (MDRD) Non-Af 77 BUN/Creatinine Ratio 28.0 H Glucose 96 Calcium 9.3 Urine Color Yellow Urine Clarity Clear Urine pH 6.0 Ur Specific Dulce 1.020 Urine Protein 15 H Urine Glucose (UA) Normal Urine Ketones Negative Urine Occult Blood 25 H Urine Nitrite Positive H Urine Bilirubin Negative Urine Urobilinogen Normal Ur Leukocyte Esterase 25 H Urine RBC 0-5 SEEN Urine WBC 5-10 SEEN Ur Squamous Epith Cells 0-5 SEEN Urine Bacteria 1+ Urine Mucus 0 SEEN Treatment and Re-Evaluation :: Nursing staff placed Lizarraga. Discharge Plan Triage Chief Complaint: Complaint Other Complaint: Diarrhea ED Provider: Reggie Chan Dx/Rx/DC Orders Clinical Impression: Urinary tract infection, Hypothyroidism, Debility, Dementia, Acute on chronic urinary retention Instructions: ED Urinary Retention, Female Prescriptions: New cephalexin 500 mg capsule 500 mg PO Q6 Qty: 28 0RF No Action buspirone 5 mg tablet 5 mg PO BID cholecalciferol (vitamin D3) 125 mcg (5,000 unit) capsule 125 mcg PO DAILY acetaminophen 500 mg Tablet 1,000 mg PO Q8 Qty: 0 0RF clonazepam 0.5 mg Tablet 0.5 mg PO Q8H PRN (Reason: anxiety) Qty: 6 0RF menthol-zinc oxide [Calmoseptine] 0.44-20.6 % Ointment 1 applic topical BID Qty: 0 0RF Protocol: *Topical Application Instructions APPLICATION INSTRUCTIONS: apply to buttocks sennosides-docusate sodium [Stimulant Laxative Plus] 8.6-50 mg Tablet 2 tab PO BID Qty: 0 0RF triamcinolone acetonide 0.1 % Cream 1 applic topical BID Qty: 15 0RF Protocol: *Topical Application Instructions APPLICATION INSTRUCTIONS: Call twice daily to rectal area Rx Instructions: Apply twice a day to rectal area as needed hemorrhoidal pain citalopram 20 mg tablet 20 mg PO DAILY furosemide 20 mg tablet PO trazodone 50 mg tablet 50 mg PO QHS donepezil 10 mg tablet 10 mg PO DAILY levothyroxine 50 mcg tablet 50 mcg PO DAILY escitalopram oxalate 20 mg tablet 20 mg PO DAILY Patient Comments: PT TAKES AT BEDTIME. ascorbic acid (vitamin C) [C-500] 500 mg tablet 500 mg PO DAILY Primary Care Provider: Anaid Santiago Referrals: Anaid Santiago MD [Primary Care Provider] - 3-5 Days if not improving Print Language: Macanese Disposition Disposition: Home, Self Care What to do if you have Problems For any increased pain, shortness of breath, bleeding, nausea or vomiting, chestpain, or any unexpected problems, contact your Primary Care Provider. Call [facility] ([phone]) or report tothe closest Emergency Room. Call 911 if necessary. 07/31/252246 Cosigner Signature (if applicable): CC: Dr. Anaid Santiago MD ~ Signed [facility]09-12-2025 Telephone encounter Note* Telephone Encounter - Jagruti Malloy RN - 07/31/2025 3:58 PM EDT Patient's daughter calls back and notified of below. Daughter voices understanding. Daughter states that they will take patient to [facility] ER. Advised daughter to also mention at ER that patient has been having issues with bowel movements. Jagruti Malloy RN [facility]09-12-2025 Miscellaneous Notes* Telephone Encounter - Jagruti Malloy RN - 07/31/2025 3:58 PM EDT Patient's daughter calls back and notified of below. Daughter voices understanding. Daughter states that they will take patient to [facility] ER. Advised daughter to also mention at ER that patient has been having issues with bowel movements. Jagruti Malloy RN * Telephone Encounter - Nickolas Mcelroy RN - 07/31/2025 3:18 PM EDT Savanah- Director of [facility] called and is notified of providers message and instructions. She voices understanding. She states she called the Pt's daughter and left a message to let her know about her mother and that they recommended that she take her to the ER. She states the daughter has notgotten back to them as of yet, and suggested we call the daughter. Called and left a voicemail for t he Patient's daughter to call back and ask for a nurse to receive the providers message that Pt should go to the ER about her catheter. Nickolas Mcelroy, ZACHARIAH * Telephone Encounter - Anaid Santiago MD - 07/31/2025 2:55 PM EDT We are not generally taking care of catheter stuff so I wont be able to comment much on it , ok forEr Regards, Anaid Santiago MD * Telephone Encounter - Yuko Rasmussen - 07/31/2025 2:13 PM EDT Savanah from [facility] called again for status update on alternative suggestions for catheter reinsertion. Savanah stated that since the provider has not responded yet, she will tell the patient's daughter to have patient transported to ER by squad. * Telephone Encounter - Michaelle Tai RN - 07/31/2025 10:37 AM EDT Savanah- Director of [facility]- reports patient dislodged her catheter today, and needs it put back in. Reports [facility] placed the catheter before discharge and it is a 10 [place] size. Reports there are no orders that came with the catheter. [facility] does not have a 10 Fr, and asking pcp if theycan replace with 12 Fr. Note Savanah spoke with Urology today and was advised to take pt to ER to have catheter put back in.See today's telephone note in epic. Please advise and phone Savanah with reply: [phone] documented [facility] Telephone encounter Note * Telephone Encounter - Nickolas Mcelroy RN - 07/31/2025 3:18 PM EDT Savanah- Director of [facility] called and is notified of providers message and instructions. She voices understanding. She states she called the Pt's daughter and left a message to let her know about her mother and that they recommended that she take her to the ER. She states the daughter has notgotten back to them as of yet, and suggested we call the daughter. Called and left a voicemail for t he Patient's daughter to call back and ask for a nurse to receive the providers message that Pt should go to the ER about her catheter. Nickolas Mcelroy RN [facility]09-12-2025 Telephone encounter Note* Telephone Encounter - Anaid Santiago MD - 07/31/2025 2:55 PM EDT We are not generally taking care of catheter stuff so I wont be able to comment much on it , ok forEr Regards, Anaid Santiago MD [facility]09-12-2025 Telephone encounter Note* Telephone Encounter - Yuko Rasmussen - 07/31/2025 2:13 PM EDT Savanah from [facility] called again for status update on alternative suggestions for catheter reinsertion. Savanah stated that since the provider has not responded yet, she will tell the patient's daughter to have patient transported to ER by squad. [facility]09-12-2025 Discharge summary Author Reggie Chan [facility] Note Date/Time July 31, 2025 10:47pm [facility] Medical Records Department [address] [place] [address] Emergency Department Summary 07/31/25 MR#: [id number] Acct: [id number] Name: MICHAELA BRANDT Rep #:[id number] : 1940 84 From: Reggie Chan MD PCP: Dr. Anaid Santiago MD Status:REG E R Location: ED HPI History of Present Illness Chief Complaint: Complaint Detail of Chief Complaint: Patient pulled out Lizarraga that was inserted yesterday and agitation Informant: patient and family Onset/Context/Timing Onset: Today Context: Sudden Onset Timing: Continuous and Waxes and wanes Quality: Traumatic removal of Lizarraga and confusion Location: and generalized Current Severity: Mild Maximum Severity: Mild Worsened by: Sons concerned she has UTI. When she has increased confusion from her base Relieved by: Nothing Associated Symptoms Associated Symptoms: History of UTI with confusion Narrative Narrative: Patient is an 84-year-old woman. She has history of depression anxiety, dementia, hypothyroidism, urinary retention, who was brought to the emergency room because she pulled out her Lizarraga and has had increased confusion. She has history of frequent urinary tract infection due to self-catheterization. The Lizarraga was placed yesterday. Apparently she pulled out to help. She asked if she would have to have this reinserted. She stated she preferred to self catheter self. Patient denies fever, chills night sweats. Patient denies headache, visual, ocular auditory symptoms. Patient denies abdominal pain, nausea or vomiting. Patient has no urinary symptoms. Patient is awake. Cranials 2 through 12 are intact. She moves all extremities. Patient is pleasant. Patient took offense that her son stated she has dementia. Patient is not oriented. Son states this is not abnormal. Prior similar symptoms: Yes (Urinary tract infection) Recent Illness/Hospitalization: No PFSH [facility] Medical History Abnormal finding on urinalysis Generalized weakness Fall Closed intertrochanteric fracture of left hip Fall [...] mg PO QHS anxiety 5 06/19/25 History buspirone 5 mg tablet 5 mg PO BID 06/20/25 5 History cholecalciferol (vitamin D3) 125 125 mcg PO DAILY 01/1306/19/25 History mcg (5,000 unit) capsule acetaminophen 500 mg tablet 1,000 mg (2 x 500 mg) PO Q 8 #0 tabs 06/25/25 Unknown Rx clonazepam 0.5 mg tablet 0.5 mg PO Q8H PRN anxiety #6 tabs 06/25/25 Unknown Rx menthol 0.44 %-zinc oxide 20.6 % 1 applic topical BID #0 grams 06/25/25 Unknown Rx topical ointment (Calmoseptine) sennosides 8.6 mg-docusate sodium 2 tab PO BID #0 tabs 06/25/25 Unknown Rx 50 mg tablet (Stimulant Laxative Plus) triamcinolone acetonide 0.1 % 1 applic topical BID #15 grams 06/25/25 Unknown Rx topical cream citalopram 20 mg tablet 20 mg PO DAILY 07/22/25 Unkn own History furosemide 20 mg tablet mg PO 07/22/25 Unknown Histo ry cephalexin 500 mg capsule 500 mg PO Q6 #28 CAPSULES Unknown Rx Allergy/AdvReac Type Severity Reaction Status Date / Time No Known Allergies Allergy Verified 07/31/25 18:08 Family History Other Hypertension Surgical History H/O: hysterectomy Status post right knee replacement Social History household members: none housing: apartment current occupational status: retired other: Daughter lives a few doors down helps her on a regular basis Smoking Status: Never smoker alcohol intake: never substance use type: does not use ROS ROS ED Constitutional Constitutional ED: Denies chills, fever(s) or subjective Eyes Eyes: Denies blurry vision or change in vision Cardiovascular Cardiovascular: Denies chest pain or palpitations Respiratory/Chest Respiratory/Chest: Denies cough, dyspnea or dyspnea on exertion Gastrointestinal Gastrointestinal: Denies abdominal pain, nausea or vomiting Genitourinary Genitourinary ED: Denies dysuria, hematuria or urinary frequency Musculoskeletal Musculoskeletal: Denies back pain Integumentary Denies rash Neurologic Neurologic: Denies headache(s) Hematologic/Lymphatic Hematologic/Lymphatic: Reports systems reviewed and no addt'l complaints, exceptas documented EXAM Physical Exam Const Vital Signs: 07/31/25 18:08 07/31/25 20:39 07/31/25 22:00 Temperature 98.5 F Temperature Source Oral Pulse Rate 66 60 62 Respiratory Rate 18 Blood Pressure 124/59 H 112/70 139/41 H Blood Pressure Mean 80 84 73 Pulse Ox 97 100 91 Oxygen Delivery Method Room Air Positive well nourished and well developed General Appearance ED: well developed and NAD; Negative for pallor HEENT Reports moist mucous membranes HEENT Narrative: Head is atraumatic and normocephalic. Ears normal. Nares patent. Posterior pharynx is normal. Eyes PERRL and EOMs intact bilaterally General Eye ED: Negative for pale conjunctiva or scleral icterus Neck no lymphadenopathy, supple and no JVD Chest Wall inspection of chest normal and palpation of chest normal Resp normal respiratory effort and clear to auscultation bilaterally Cardio regular rate, regular rhythm, S1 normal heart sound, S2 normal heart sound and no murmurs GI normal to inspection, nondistended, normoactive bowel sounds, non-tender, non-distended and no masses; Negative for hepatosplenomegaly Back/Spine no CVA tenderness Extremity normal to inspection Neuro No oriented x3 and CN's II-XII intact bilaterally Neuro Narrative: Awake but not alert. Motor Exam: strength 5/5 throughout Psych mental status grossly normal Skin no rashes or lesions noted, no wounds and No skin turgor normal General Skin Exam: Negative for jaundice or pallor MDM MDM MDM Narrative Medical decision making narrative: Order was placed to reinsert Lizarraga because of urinary retention and infections with self-catheterization. Will obtain UA to rule out infection as well as CBC and basic metabolic panel to assess renal function. History & Record Review Additional record(s) reviewed:: Prior inpatient record (Patient was admitted greater than 30 days ago for abnormal urinalysis and lactic acidosis.), Prior outpatient record (Seen at [facility] for sacral decubitus stage II.) and Prior labs Lab Data Attestation: I reviewed the patient's lab results. Lab results narrative: White count is normal. There is a slight shift with increased segs. Basic metabolic panel is not elevated BUN to creatinine ratio of 28:1. Renal functionis normal. Will not need to alter dose of cephalexin. Urine is suggestive of infection with positive protein, occult blood, nitrites and leukoesterase. There is evidence of pyuria with bacteria. Culture was sent and she received her first dose of cephalexin in the emergency department. Labs: Laboratory Results - last 24 hr 07/31/25 21:07 WBC 10.0 RBC 4.20 Hgb 12.8 Hct 37.1 MCV 88.3 MCH 30.5 MCHC 34.5 RDW Std Deviation 44.5 H RDW Coeff of Leslie 13.7 Plt Count 220 MPV 9.7 Immature Gran % (Auto) 0.600 Neut % (Auto) 72.4 H Lymph % (Auto) 18.7 L Beltrami % (Auto) 6.4 Eos % (Auto) 1.3 Baso % (Auto) 0.6 Absolute Neuts (auto) 7.3 Absolute Lymphs (auto) 1.88 Nucleated RBC % 0 Sodium 140 Potassium 4.1 Chloride 103 Carbon Dioxide 27.4 Anion Gap 9 BUN 21 H Creatinine 0.76 Estim Creat Clear Calc 39.50 L Est GFR (MDRD) Non-Af 77 BUN/Creatinine Ratio 28.0 H Glucose 96 Calcium 9.3 Urine Color Yellow Urine Clarity Clear Urine pH 6.0 Ur Specific Dulce 1.020 Urine Protein 15 H Urine Glucose (UA) Normal Urine Ketones Negative Urine Occult Blood 25 H Urine Nitrite Positive H Urine Bilirubin Negative Urine Urobilinogen Normal Ur Leukocyte Esterase 25 H Urine RBC 0-5 SEEN Urine WBC 5-10 SEEN Ur Squamous Epith Cells 0-5 SEEN Urine Bacteria 1+ Urine Mucus 0 SEEN Treatment and Re-Evaluation :: Nursing staff placed Lizarraga. Discharge Plan Triage Chief Complaint: Complaint Other Complaint: Diarrhea ED Provider: Reggie Chan Dx/Rx/DC Orders Clinical Impression: Urinary tract infection, Hypothyroidism, Debility, Dementia, Acute on chronic urinary retention Instructions: ED Urinary Retention, Female Prescriptions: New cephalexin 500 mg capsule 500 mg PO Q6 Qty: 28 0RF No Action buspirone 5 mg tablet 5 mg PO BID cholecalciferol (vitamin D3) 125 mcg (5,000 unit) capsule 125 mcg PO DAILY acetaminophen 500 mg Tablet 1,000 mg PO Q8 Qty: 0 0RF clonazepam 0.5 mg Tablet 0.5 mg PO Q8H PRN (Reason: anxiety) Qty: 6 0RF menthol-zinc oxide [Calmoseptine] 0.44-20.6 % Ointment 1 applic topical BID Qty: 0 0RF Protocol: *Topical Application Instructions APPLICATION INSTRUCTIONS: apply to buttocks sennosides-docusate sodium [Stimulant Laxative Plus] 8.6-50 mg Tablet 2 tab PO BID Qty: 0 0RF triamcinolone acetonide 0.1 % Cream 1 applic topical BID Qty: 15 0RF Protocol: *Topical Application Instructions APPLICATION INSTRUCTIONS: Call twice daily to rectal area Rx Instructions: Apply twice a day to rectal area as needed hemorrhoidal pain citalopram 20 mg tablet 20 mg PO DAILY furosemide 20 mg tablet PO trazodone 50 mg tablet 50 mg PO QHS donepezil 10 mg tablet 10 mg PO DAILY levothyroxine 50 mcg tablet 50 mcg PO DAILY escitalopram oxalate 20 mg tablet 20 mg PO DAILY Patient Comments: PT TAKES AT BEDTIME. ascorbic acid (vitamin C) [C-500] 500 mg tablet 500 mg PO DAILY Primary Care Provider: Anaid Santiago Referrals: Anaid Santiago MD [Primary Care Provider] - 3-5 Days if not improving Print Language: Macanese Disposition Disposition: Home, Self Care What to do if you have Problems For any increased pain, shortness of breath, bleeding, nausea or vomiting, chestpain, or any unexpected problems, contact your Primary Care Provider. Call [facility] ([phone]) or report to the closest Emergency Room. Call 911 if necessary. 07/31/252246 <Electronically signed by Reggie Chan MD> Cosigner Signature (if applicable): CC: Dr. Anaid Santiago MD ~ Signed [facility] Work Phone: [phone] Telephone encounter Note* Telephone Encounter - Michaelle Tai RN - 07/31/2025 10:37 AM EDT Savanah- Director of [facility]- reports patient dislodged her catheter today, and needs it put back in. Reports [facility] placed the catheter before discharge and it is a 10 [place] size. Reports there are no orders that came with the catheter. [facility] does not have a 10 Fr, and asking pcp if theycan replace with 12 Fr. Note Savanah spoke with Urology today and was advised to take pt to ER to have catheter put back in.See today's telephone note in epic. Please advise and phone Savanah with reply: [phone] [facility]09-12-2025 Telephone encounter Note* Telephone Encounter - Devin Crespo LPN - 07/31/2025 10:20 AM EDT Called Savanah With [facility]. Savanah aware that we do not have urology staff in clinic today nor do we carry 10 FR catheters. Per Savanah they will send patient to emergency room for replacement of catheter. Devin Crespo LPN [facility]09-12-2025 Miscellaneous Notes* Telephone Encounter - Devin Crespo LPN - 07/31/2025 10:20 AM EDT Called Savanah With [facility]. Savanah aware that we do not have urology staff in clinic today nor do we carry 10 FR catheters. Per Savanah they will send patient to emergency room for replacement of catheter. Devin Crespo LPN * Telephone Encounter - Raegan Moore MA - 07/31/2025 9:58 AM EDT Patient was visited by home health today. She has a 10 polish catheter which was unintentionally removed. They do not have any supplies to replace the catheter and neither does the patient. Home Health asking if the office has any and if the patient can be seen today to replace it? Please contact Savanah back at [phone]. [facility] Telephone encounter Note * Telephone Encounter - Renate Montgomery MSW - 07/31/2025 10:06 AM EDT Patient daughter Osmany called this SW and asked for numbers for other home care agencies ie. [facility], [facility], [facility]. Sw provided daughter with numbers for these locations. [facility] is helping now with in home care needs. Daughter notes the cost is high due to number of hours needed. Daughter would like to compare agency costs. [facility]09-12-2025 Miscellaneous Notes* Telephone Encounter - Rentae Montgomery MSW - 07/31/2025 10:06 AM EDT Patient daughter Osmany called this SW and asked for numbers for other home care agencies ie. [facility], [facility], [facility]. Sw provided daughter with numbers for these locations. [facility] is helping now with in home care needs. Daughter notes the cost is high due to number of hours needed. Daughter would like to compare agency costs. documented in this [facility] Telephone encounter Note * Telephone Encounter - Raegan Moore MA - 07/31/2025 9:58 AM EDT Patient was visited by home health today. She has a 10 polish catheter which was unintentionally removed. They do not have any supplies to replace the catheter and neither does the patient. Home Health asking if the office has any and if the patient can be seen today to replace it? Please contact [facility] back at [phone]. [facility]09-10-2025 Progress note Author Lisa Lobato [facility] Note Date/Time July 29, 2025 11:48am [facility] [address] [place] [id number] Progress Note - Wound Care 07/29/25 1136 MR#: [id number] Acct: [id number] Name: MICHAELA BRANDT Rep #:[id number] : 1940 84 From: Lisa Lobato NP [employer]C PCP: Dr. Anaid Santiago MD Status:REG R CR Location: History of Present Illness Date of Service: 07/29/25 Chief Complaint: Follow-up on her bilateral buttocks open wounds from pressure. History of Wound: 84-year-old white female that apparently had fallen back in February and broke her hip had surgery [facility] a [facility] until abouta week and a half ago and now lives with her daughter and son-in-law. He is thehead of the [facility] and has brought her in today. He states she has a little bit of dementia but she does walk with her walker when prodded and eats okay and has been eating drinking boost at least once a day. 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 She also has incontinence of stool which is apparent on exam. She has a butterfly shaped open wound on her buttocks right and left into the coccyx. Son-in-law is not sure if this startedin the hospital or at the [facility] but she was getting zinc oxide on her buttocks. They do not have a special mattress for her on her bed she does sit on a doughnut on her chair. Progress of Wound: Today her son-in-law was with her who is actually doing the dressing changes he has some medical background he runs [facility]. And he has been helping her offload by only letting her lay on her sides. She is the one that has the right and left buttock actually its her sacral area it is a butterfly cluster we are calling it well the left side of the cluster is completely healed. I debrided off any dried skin and nipped away any looseskin. So now are just dealing with the right side of her sacral area which is much smaller than it was last week even. She continues to use Aquacel extra andmoistened with a foam dressing. And we did order some of the butterfly shaped dressings for her for padding it is mostly shearing from the sheets that is causing this. Subjective Subjective Son was very pleased with outcomes and so is patient. She also has a Lizarraga to CD that had having some issues with the nurse and so they are dealing with her urine issues. The son-in-law has been doing basically the coccyx dressings and he has been doing a really good job in keeping her superclean down there. Objective Data Objective Data No sign of an infection left side healed right side much smaller and more superficial healing well less pain everything is working well. Also had been given her Shashi and that has been helping a lot with healing. Vital Signs: Vital Signs Temp Pulse Resp BP O2 Del Method 98 F 56 L 18 118/60 Room Air 07/29/25 09:43 07/29/25 09:43 07/29/25 09:43 07/29/25 09:43 07/29/25 09:43 Oxygen Delivery Method Room Air Weight: 123 lb Body Mass Index (BMI) 23.2 Physical Exam Const General Appearance: cooperative HEENT normocephalic Face and Sinus: normal facial exam External Ear: external ears normal Eyes PERRL General Eye: normal appearance of both eyes Neck full ROM General: normal visual inspection Resp normal respiratory effort Cardio regular rate and regular rhythm Palpation: normal PMI Rate: regular rate Rhythm: regular rhythm external exam normal Back/Spine Cervical Spine: cervical ROM normal Thoracic Spine / Upper Back: normal to inspection Lumbar Spine / Lower Back: normal to inspection Extremity normal to inspection Skin Wounds: wounds noted Wound Narrative: Butterfly shaped open wound superficial on bilateral right and left buttocks andsacral area Psych Appearance: grossly normal Speech: normal speech Debridement Note Debridement Note Wound debrided: Bilateral buttocks and sacrum area Wound Grade/Stage: Stage II Type of Debridement: Excisional debridement Anesthesia Used: 5% Lidocaine Gel Depth: in the subcutaneous layer Percentage of wound debrided: 100 Instrument Used: 5mm curette Tissue Removed: Fibrin Severity: Limited To Skin Breakdown Amount of bleeding with debridement: Mild Bleeding Controlled with: Compression and gauze Patient tolerated procedure: Patient tolerated procedure well Post-Debridement Measurements and Additional Note: Post-Debridement Measurements/Treatment - Nurse 1 - General Ulcer Assessment Start: 07/22/25 09:18 Freq: Status: Active Protocol: DEYANIRA Activity Type Activity Date Activity User E-sign Co-sign Detail Recorded Client Recorded Date Recorded By Document 07/22/25 09:25 RB [id number] 07/22/25 09:32 RB Document 07/29/25 09:43 MT [id number] 07/29/25 09:53 MT 07/22/25 07/29/25 09:25 09:43 - Today's Visit Information Type of service Initial Visit Follow-up Visit (Physician/INSIGHT DIRECTOR ) Arrival Mode Ambulatory Ambulatory Transfer Assistance None Accompanied by son in law Patient Identification Verified (Name & Yes Yes ) Patient Requires Transmission-Based No Precautions Safety Precautions Fall Prevention Height and Weight Height 5 ft 1 in Weight 123 lb Weight in Pounds 123.0 lbs Body Mass Index (BMI) 23.2 23.2 BMI Classification Normal Normal Vital Signs Temperature (97.8 F-99.1 F) 97.4 F L 98 F Temperature Source Temporal Temporal Pulse Rate (60-100) 67 56 L Pulse Location Monitor Monitor Respiratory Rate (12-18) 18 18 Respiratory rate source Observation Observation Oxygen Delivery Method Room Air Blood Pressure (90/60-120/80) 129/60 H 118/60 Blood Pressure Mean (mm Hg) 83 79 Source Monitor Monitor Position Semi-Fowlers Sitting Blood Pressure Location Left Arm Right Arm History Since Last Visit- (Skip if this is Patient's initial visit) Have you changed medications since your No last visit? Any new allergies or adverse reactions No Had a fall/change in ADL's that may No increase risk of falls Signs or symptoms of abuse and/or No neglect since last visit Have you been in the hospital since your No last visit? Has dressing in place as prescribed Yes Yes Has compression in place as prescribed N/A Yes Has offloadiing in place as prescribed N/A Yes Experienced any changes in pain level or No Yes management Left Footwear Regular Shoe Regular Shoe Right Footwear Regular Shoe Regular Shoe Pain Scale: 0-10 Numeric Is Patient Pain Free? No Yes buttock -Description Aching -Intensity 5 -Duration (hours) Acute -Pain Behavior Withdrawal from Touch -Pain Aggravating Factors ADL's -Alleviating Factors/Interventions None Communication Assessment Preferred language Macanese Heavy Equipment Plumbing Supervisor Required No Able to Read Yes Able to Write Yes Communication Tools None Caregiver Communication Skills No Impairment Impairment Right Hearing Abillity Normal Left Hearing Abillity Normal Visual Assistive Devices Glasses Teaching Assessment Preferences Verbal,Written, Demonstration Barriers to Learning Knowledge Deficit Readiness To Learn Poor Willingness to Engage in Self Management Low Activies Readiness to Engage in Self Management Low Activities Anxiety Level Calm Cooperation Cooperative Perception Coherent Interest in Health Problem Asks Questions Education Importance Acknowledges Need Does Patient Smoke tobacco or other No substances Smoking Status Never smoker Is Patient Diabetic Yes Functional Assessment Recent Decline in Ability to Perform Ambulation, Bathing,Eating/ Feeding Assistive Device With Patient No Culture/Jewish/Preventative Maintenance Technician Cultural/Jewish Needs that may affect No Treatment Plan Would you allow our hospital call circuit worker to No meet you for the purpose of spiritual/ emotional support? Preventative Maintenance Technician to contact place of buddhist No Teaching: Wound Center *Welcome to the Wound Center -Person Taught Patient,Family -Teaching Method Discussion, Demonstration -Response to teaching Verbalize Understanding WC - Nurse 1 - General Ulcer Measurement Start: 07/22/25 09:18 Freq: Status: Active Protocol: Activity Type Activity Date Activity User E-sign Co-sign Detail Recorded Client Recorded Date Recorded By Document 07/22/25 09:25 RB [id number] 07/22/25 09:32 RB Document 07/29/25 09:43 MT [id number] 07/29/25 09:53 MT 07/22/25 07/29/25 09:25 09:43 Wound Center Nurse 1 1. RIGHT/LEFT BUTTOCK CLUSTER -Combined with other wound No No -Current Size (cm) - Length 5.2 3.6 -Current Size (cm) - Width 5.4 1.5 -Current Size (cm) - Depth 0.1 0.1 -Total Square Cm 28.08 5.40 -Photo Taken Yes Yes -Tunneling No No -Undermining/Tunneling No No -Circular Undermining No No -Exudate Amt Medium Medium -Exudate Type Serosanguineous Serosanguineous -Wound Margin Distinct, Distinct, Outline Outline Attached Attached -Granulation Amt Medium (34-66%) Medium (34-66%) -Granulation Quality Plain Dealing Plain Dealing -Slough/Fibrin Yes Yes -Necrosis Amt Medium (34-66%) Medium (34-66%) -Necrotic Tissue Type Adherent Slough Adherent Slough -Structure Exposed N/A N/A -Texture (Hillary-wound Skin Appearance) Assessed, Assessed Excoriation -Moisture (Hillary-wound Skin Appearance) Assessed Assessed -Color (Hillary-wound Skin Appearance) Assessed Assessed -Temperature (Hillary-wound Skin No Abnormality No Abnormality Appearance) (Pt Warm) (Pt Warm) -Tenderness on Palpation (Hillary-wound No No Skin Appearance) -Ulcer Cleansing Wound Cleanser Wound Cleanser -Foul Odor after Cleansing No No -Anesthetic Used 5% Lidocaine 5% Lidocaine Gel Gel WC - Nurse 2 - General Ulcer CM Notes Start: 07/22/25 09:18 Freq: Status: Active Protocol: Activity Type Activity Date Activity User E-sign Co-sign Detail Recorded Client Recorded Date Recorded By Document 07/22/25 10:04 BMF [id number] 07/22/25 10:14 BMF Edit Result 07/22/25 10:04 BMF (1) [id number] 07/23/25 13:55 BMF Document 07/29/25 09:56 BMF [id number] 07/29/25 10:04 [facility] (1) 1. RIGHT/LEFT BUTTOCK CLUSTER - Debridement, SubQ, ea addt'l 20sq cm => 1 or part thereof 07/22/25 07/29/25 10:04 09:56 Wound Center Nurse 2 1. RIGHT/LEFT BUTTOCK CLUSTER -Time 10:06 09:57 -Correct Patient Yes Yes -Correct Side, Site, Position Yes Yes -Correct Procedure Yes Yes -Procedure Performed Yes Yes -Type of Procedure Debridement Debridement -Clinical Debridement Subcutaneous Subcutaneous -Tissue Removed Subcutaneous Subcutaneous -Post Debridement (cm) - Length 6 4 -Post Debridement (cm) - Width 6 1 -Post Debridement (cm) - Depth 0.1 0.2 -Total Square (Post) (cm) 36 4 -Area of Debridement (cm) - Length 6 4 -Area of Debridement (cm) - Width 6 1 -Total Square (Area) (cm) 36 4 -Tunneling No No -Undermining/Tunneling No No -Circular Undermining No No -Wound/Ulcer Outcome Not Healed Not Healed -Ulcer Cleansing Rinsed/ Rinsed/ Irrigated with Irrigated with Saline Saline -Foul Odor after Cleansing No No -Bioengineered Tissue No No -Bleeding Controlled with Pressure Pressure -Treatment Response Procedure Procedure Tolerated Well Tolerated Well -Debridement - Subq, 1st 20sq cm Yes Yes -Debridement, SubQ, ea addt'l 20sq cm 1 or part thereof Pain Scale: 0-10 Numeric Is Patient Pain Free? Yes Yes - Nurse 3 - General Ulcer D/C NN Start: 07/22/25 09:18 Freq: Status: Active Protocol: Activity Type Activity Date Activity User E-sign Co-sign Detail Recorded Client Recorded Date Recorded By Document 07/22/25 10:44 RB [id number] 07/22/25 10:45 RB Document 07/29/25 10:22 DL [id number] 07/29/25 10:23 DL 07/22/25 07/29/25 10:44 10:22 Wound Care Center Nurse 3 1. RIGHT/LEFT BUTTOCK CLUSTER -Ulcer Cleansing Rinsed/ Soap and Water Irrigated with Saline -Foul Odor after Cleansing No -Primary Dressing Applied Aquacel Extra, Aquacel Extra, Silicone Border Sacral Foam Foam 6x6 Border -Aquacel Extra 1 1 -Sacral Foam Border 1 -Silicone Border Foam 6x6 1 Treatment Response Procedure Procedure Tolerated Well Tolerated Well Pain Scale: 0-10 Numeric Is Patient Pain Free? Yes Yes WC - Visit Discharge Discharge Condition Stable Stable Ambulatory Status Wheelchair Wheelchair Transportation Private Auto Private Auto Accompanied by SON IN LAW Medication Reconcilliation completed & No provided to patient/care provider Clinical Summary of Care Provided Yes Notes: 2 PERSON ASSIST TO WHEELCHAIR Facility Type Home Health Orders Sent Yes Assessment/Plan Assessment/Plan (1) Urinary retention: CODE(S): R33.9 - Retention of urine, unspecified (2) Fecal incontinence: CODE(S): R15.9 - Full incontinence of feces QUALIFIERS: Fecal incontinence type: unspecified Qualified Code(s): R15.9 - Full incontinence of feces (3) Decubitus ulcer of buttock, stage 2: CODE(S): L89.302 - Pressure ulcer of unspecified buttock, stage 2 QUALIFIERS: Laterality: right Qualified Code(s): L89.312 - Pressure ulcer of right buttock, stage 2 PLAN: Wash buttocks and sacral area with antibacterial soap and water apply Aquacel extra to wound base moistened and then cover with a ABD pad daily and asneeded if Becomes soiled Follow-up in 1 week Continue to rotate in bed every hour. Offload is much as possible with a Roho pad under her buttocks when seated in chairs Encourage patient to move frequently and walk increase food intake with protein and 60 g of protein a day. Patient did like the Shashi and started taking it daily (4) Decubitus ulcer of sacral area: CODE(S): L89.159 - Pressure ulcer of sacral region, unspecified stage QUALIFIERS: Pressure injury stage: stage 2 Qualified Code(s): L89.152 - Pressure ulcer of sacral region, stage 2 (5) Decubitus ulcer of left buttock, stage 2: CODE(S): L89.322 - Pressure ulcer of left buttock, stage 2 07/29/25 1148 <Electronically signed by Lisa Lobato NP STERILE PROCESSING TECH-C> Cosigner Signature (if applicable): CC: ~ Signed [facility] Work Phone: 1(242) 984-782709-10-2025 Progress note [facility] [address] [place] [address] Progress Note - Wound Care 07/29/25 1136 MR#: [id number] Acct: [id number] Name: MICHAELA BRANDT Rep #:[id number] : 1940 84 From: Lisa Lobato NP STERILE PROCESSING TECH-C PCP: Dr. Anaid Santiago MD Status:REG R CR Location: History of Present Illness Date of Service: 07/29/25 Chief Complaint: Follow-up on her bilateral buttocks open wounds from pressure. History of Wound: 84-year-old white female that apparently had fallen back in February and broke her hip had surgery [facility] a [facility] until abouta week and a half ago and now lives with her daughter and son-in-law. He is thehead of the [facility] and has brought herin today. He states she has a little bit of dementia but she does walk with her walker when proddedand eats okay and has been eating drinking boost at least once a day. 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 She also has incontinence of stool which is apparent on exam. She has a butterfly shaped open wound on her buttocks right and left into the coccyx. Son-in-law is not sure if this startedin the hospital or at the [facility] but she was getting zinc oxide on her buttocks. They do not have a special mattress for her on her bed she does sit on a doughnut on her chair. Progress of Wound: Today her son-in-law was with her who is actually doing the dressing changes he has some medical background he runs [facility]. And he has been helping her offload by only lettingher lay on her sides. She is the one that has the right and left buttock actually its her sacral area it is a butterfly cluster we are calling it well the left side of the cluster is completely healed. I debrided off any dried skin and nipped away any looseskin. So now are just dealing with the right side of her sacral area which is much smaller than it was last week even. She continues to use Aquacel extra andmoistened with a foam dressing. And we did order some of the butterfly shaped dressings for her for padding it is mostly shearing from the sheets that is causing this. Subjective Subjective Son was very pleased with outcomes and so is patient. She also has a Lizarraga to CD that had having some issues with the nurse and so they are dealing with her urine issues. The son-in-law has been doing basically the coccyx dressings and he has been doing a really good job in keeping her superclean down there. Objective Data Objective Data No sign of an infection left side healed right side much smaller and more superficial healing well less pain everything is working well. Also had been given her Shashi and that has been helping a lot with healing. Vital Signs: Vital Signs Temp Pulse Resp BP O2 Del Method 98 F 56 L 18 118/60 Room Air 07/29/25 09:43 07/29/25 09:43 07/29/25 09:43 07/29/25 09:43 07/29/25 09:43 Oxygen Delivery Method Room Air Weight: 123 lb Body Mass Index (BMI) 23.2 Physical Exam Const General Appearance: cooperative HEENT normocephalic Face and Sinus: normal facial exam External Ear: external ears normal Eyes PERRL General Eye: normal appearance of both eyes Neck full ROM General: normal visual inspection Resp normal respiratory effort Cardio regular rate and regular rhythm Palpation: normal PMI Rate: regular rate Rhythm: regular rhythm external exam normal Back/Spine Cervical Spine: cervical ROM normal Thoracic Spine / Upper Back: normal to inspection Lumbar Spine / Lower Back: normal to inspection Extremity normal to inspection Skin Wounds: wounds noted Wound Narrative: Butterfly shaped open wound superficial on bilateral right and left buttocks andsacral area Psych Appearance: grossly normal Speech: normal speech Debridement Note Debridement Note Wound debrided: Bilateral buttocks and sacrum area Wound Grade/Stage: Stage II Type of Debridement: Excisional debridement Anesthesia Used: 5% Lidocaine Gel Depth: in the subcutaneous layer Percentage of wound debrided: 100 Instrument Used: 5mm curette Tissue Removed: Fibrin Severity: Limited To Skin Breakdown Amount of bleeding with debridement: Mild Bleeding Controlled with: Compression and gauze Patient tolerated procedure: Patient tolerated procedure well Post-Debridement Measurements and Additional Note: Post-Debridement Measurements/Treatment WC - Nurse 1 - General Ulcer Assessment Start: 07/22/25 09:18 Freq: Status: Active Protocol: WC.LOWEXT Activity Type Activity Date Activity User E-sign Co-sign Detail Recorded Client Recorded Date Recorded By Document 07/22/25 09:25 RB [id number] 07/22/25 09:32 RB Document 07/29/25 09:43 MT [id number] 07/29/25 09:53 MT 07/22/25 07/29/25 09:25 09:43 WC - Today's Visit Information Type of service Initial Visit Follow-up Visit (Physician/INSIGHT DIRECTOR ) Arrival Mode Ambulatory Ambulatory Transfer Assistance None Accompanied by son in law Patient Identification Verified (Name & Yes Yes ) Patient Requires Transmission-Based No Precautions Safety Precautions Fall Prevention Height and Weight Height 5 ft 1 in Weight 123 lb Weight in Pounds 123.0 lbs Body Mass Index (BMI) 23.2 23.2 BMI Classification Normal Normal Vital Signs Temperature (97.8 F-99.1 F) 97.4 F L 98 F Temperature Source Temporal Temporal Pulse Rate (60-100) 67 56 L Pulse Location Monitor Monitor Respiratory Rate (12-18) 18 18 Respiratory rate source Observation Observation Oxygen Delivery Method Room Air Blood Pressure (90/60-120/80) 129/60 H 118/60 Blood Pressure Mean (mm Hg) 83 79 Source Monitor Monitor Position Semi-Fowlers Sitting Blood Pressure Location Left Arm Right Arm History Since Last Visit- (Skip if this is Patient's initial visit) Have you changed medications since your No last visit? Any new allergies or adverse reactions No Had a fall/change in ADL's that may No increase risk of falls Signs or symptoms of abuse and/or No neglect since last visit Have you been in the hospital since your No last visit? Has dressing in place as prescribed Yes Yes Has compression in place as prescribed N/A Yes Has offloadiing in place as prescribed N/A Yes Experienced any changes in pain level or No Yes management Left Footwear Regular Shoe Regular Shoe Right Footwear Regular Shoe Regular Shoe Pain Scale: 0-10 Numeric Is Patient Pain Free? No Yes buttock -Description Aching -Intensity 5 -Duration (hours) Acute -Pain Behavior Withdrawal from Touch -Pain Aggravating Factors ADL's -Alleviating Factors/Interventions None Communication Assessment Preferred language Macanese Heavy Equipment Plumbing Supervisor Required No Able to Read Yes Able to Write Yes Communication Tools None Caregiver Communication Skills No Impairment Impairment Right Hearing Abillity Normal Left Hearing Abillity Normal Visual Assistive Devices Glasses Teaching Assessment Preferences Verbal,Written, Demonstration Barriers to Learning Knowledge Deficit Readiness To Learn Poor Willingness to Engage in Self Management Low Activies Readiness to Engage in Self Management Low Activities Anxiety Level Calm Cooperation Cooperative Perception Coherent Interest in Health Problem Asks Questions Education Importance Acknowledges Need Does Patient Smoke tobacco or other No substances Smoking Status Never smoker Is Patient Diabetic Yes Functional Assessment Recent Decline in Ability to Perform Ambulation, Bathing,Eating/ Feeding Assistive Device With Patient No Culture/Jewish/Preventative Maintenance Technician Cultural/Jewish Needs that may affect No Treatment Plan Would you allow our [facility] call circuit worker to No meet you for the purpose of spiritual/ emotional support? Preventative Maintenance Technician to contact place of buddhist No Teaching: Wound Center *Welcome to the Wound Center -Person Taught Patient,Family -Teaching Method Discussion, Demonstration -Response to teaching Verbalize Understanding WC - Nurse 1 - General Ulcer Measurement Start: 07/22/25 09:18 Freq: Status: Active Protocol: Activity Type Activity Date Activity User E-sign Co-sign Detail Recorded Client Recorded Date Recorded By Document 07/22/25 09:25 RB [id number] 07/22/25 09:32 RB Document 07/29/25 09:43 VT [id number] 07/29/25 09:53 MT 07/22/25 07/29/25 09:25 09:43 Wound Center Nurse 1 1. RIGHT/LEFT BUTTOCK CLUSTER -Combined with other wound No No -Current Size (cm) - Length 5.2 3.6 -Current Size (cm) - Width 5.4 1.5 -Current Size (cm) - Depth 0.1 0.1 -Total Square Cm 28.08 5.40 -Photo Taken Yes Yes -Tunneling No No -Undermining/Tunneling No No -Circular Undermining No No -Exudate Amt Medium Medium -Exudate Type Serosanguineous Serosanguineous -Wound Margin Distinct, Distinct, Outline Outline Attached Attached -Granulation Amt Medium (34-66%) Medium (34-66%) -Granulation Quality Plain Dealing Plain Dealing -Slough/Fibrin Yes Yes -Necrosis Amt Medium (34-66%) Medium (34-66%) -Necrotic Tissue Type Adherent Slough Adherent Slough -Structure Exposed N/A N/A -Texture (Hillary-wound Skin Appearance) Assessed, Assessed Excoriation -Moisture (Hillary-wound Skin Appearance) Assessed Assessed -Color (Hillary-wound Skin Appearance) Assessed Assessed -Temperature (Hillary-wound Skin No Abnormality No Abnormality Appearance) (Pt Warm) (Pt Warm) -Tenderness on Palpation (Hillary-wound No No Skin Appearance) -Ulcer Cleansing Wound Cleanser Wound Cleanser -Foul Odor after Cleansing No No -Anesthetic Used 5% Lidocaine 5% Lidocaine Gel Gel WC - Nurse 2 - General Ulcer CM Notes Start: 07/22/25 09:18 Freq: Status: Active Protocol: Activity Type Activity Date Activity User E-sign Co-sign Detail Recorded Client Recorded Date Recorded By Document 07/22/25 10:04 BMF [id number] 07/22/25 10:14 BMF Edit Result 07/22/25 10:04 BMF (1) [id number] 07/23/25 13:55 BMF Document 07/29/25 09:56 BMF [id number] 07/29/25 10:04 BMF (1) 1. RIGHT/LEFT BUTTOCK CLUSTER - Debridement, SubQ, ea addt'l 20sq cm => 1 or part thereof 07/22/25 07/29/25 10:04 09:56 Wound Center Nurse 2 1. RIGHT/LEFT BUTTOCK CLUSTER -Time 10:06 09:57 -Correct Patient Yes Yes -Correct Side, Site, Position Yes Yes -Correct Procedure Yes Yes -Procedure Performed Yes Yes -Type of Procedure Debridement Debridement -Clinical Debridement Subcutaneous Subcutaneous -Tissue Removed Subcutaneous Subcutaneous -Post Debridement (cm) - Length 6 4 -Post Debridement (cm) - Width 6 1 -Post Debridement (cm) - Depth 0.1 0.2 -Total Square (Post) (cm) 36 4 -Area of Debridement (cm) - Length 6 4 -Area of Debridement (cm) - Width 6 1 -Total Square (Area) (cm) 36 4 -Tunneling No No -Undermining/Tunneling No No -Circular Undermining No No -Wound/Ulcer Outcome Not Healed Not Healed -Ulcer Cleansing Rinsed/ Rinsed/ Irrigated with Irrigated with Saline Saline -Foul Odor after Cleansing No No -Bioengineered Tissue No No -Bleeding Controlled with Pressure Pressure -Treatment Response Procedure Procedure Tolerated Well Tolerated Well -Debridement - Subq, 1st 20sq cm Yes Yes -Debridement, SubQ, ea addt'l 20sq cm 1 or part thereof Pain Scale: 0-10 Numeric Is Patient Pain Free? Yes Yes - Nurse 3 - General Ulcer D/C NN Start: 07/22/25 09:18 Freq: Status: Active Protocol: Activity Type Activity Date Activity User E-sign Co-sign Detail Recorded Client Recorded Date Recorded By Document 07/22/25 10:44 RB [id number] 07/22/25 10:45 RB Document 07/29/25 10:22 DL [id number] 07/29/25 10:23 DL 07/22/25 07/29/25 10:44 10:22 Wound Care Center Nurse 3 1. RIGHT/LEFT BUTTOCK CLUSTER -Ulcer Cleansing Rinsed/ Soap and Water Irrigated with Saline -Foul Odor after Cleansing No -Primary Dressing Applied Aquacel Extra, Aquacel Extra, Silicone Border Sacral Foam Foam 6x6 Border -Aquacel Extra 1 1 -Sacral Foam Border 1 -Silicone Border Foam 6x6 1 Treatment Response Procedure Procedure Tolerated Well Tolerated Well Pain Scale: 0-10 Numeric Is Patient Pain Free? Yes Yes - Visit Discharge Discharge Condition Stable Stable Ambulatory Status Wheelchair Wheelchair Transportation Private Auto Private Auto Accompanied by SON IN LAW Medication Reconcilliation completed & No provided to patient/care provider Clinical Summary of Care Provided Yes Notes: 2 PERSON ASSIST TO WHEELCHAIR Facility Type Home Health Orders Sent Yes Assessment/Plan Assessment/Plan (1) Urinary retention: CODE(S): R33.9 - Retention of urine, unspecified (2) Fecal incontinence: CODE(S): R15.9 - Full incontinence of feces QUALIFIERS: Fecal incontinence type: unspecified Qualified Code(s): R15.9 - Full incontinence of feces (3) Decubitus ulcer of buttock, stage 2: CODE(S): L89.302 - Pressure ulcer of unspecified buttock, stage 2 QUALIFIERS: Laterality: right Qualified Code(s): L89.312 - Pressure ulcer of right buttock, stage 2 PLAN: Wash buttocks and sacral area with antibacterial soap and water apply Aquacel extra to wound base moistened and then cover with a ABD pad daily and asneeded if Becomes soiled Follow-up in 1 week Continue to rotate in bed every hour. Offload is much as possible with a Roho pad under her buttocks when seated in chairs Encourage patient to move frequently and walk increase food intake with protein and 60 g of protein a day. Patient did like the Shashi and started taking it daily (4) Decubitus ulcer of sacral area: CODE(S): L89.159 - Pressure ulcer of sacral region, unspecified stage QUALIFIERS: Pressure injury stage: stage 2 Qualified Code(s): L89.152 - Pressure ulcer of sacral region, stage 2 (5) Decubitus ulcer of left buttock, stage 2: CODE(S): L89.322 - Pressure ulcer of left buttock, stage 2 07/29/25 1148 Cosigner Signature (if applicable): CC: ~ Signed [facility]09-09-2025 Note. MICRO - Microbiology PROCEDURE: Urine Culture [*1] [...] Locations *1: This test was performed at: [facility], [address] [place] [address], [id number] , [facility]09-08-2025 Telephone encounter Note* Telephone Encounter - Lawrence Salinas APRN.CNP - 07/27/2025 9:08 AM EDT Ok for delay Lawrence Salinas APRN.CNP [facility]09-08-2025 Telephone encounter Note* Telephone Encounter - Lawrence Salinas APRN.CNP - 07/27/2025 9:08 AM EDT Agree with plan and pcp ok to follow. Thank you Lawrence Older, PIPE FITTER.INSIGHT DIRECTOR [facility]09-08-2025 Miscellaneous Notes* Telephone Encounter - Lawrence Salinas APRN.CNP - 07/27/2025 9:08 AM EDT Ok for delay Lawrence Salinas APRN.CNP * Telephone Encounter - Katie Langston LPN - 07/24/2025 3:43 PM EDT Larisa from [facility] calling will begin OT visits next week, delay of care since scheduling was full. No need for return call. [facility] Miscellaneous Notes* Telephone Encounter - Lawrence Salinas APRN.CNP - 07/27/2025 9:08 AM EDT Agree with plan and pcp ok to follow. Thank you Lawrence Salinas APRN.CNP * Telephone Encounter - Jagruti Malloy RN - 07/24/2025 4:48 PM EDT Rula LEONARD from [facility] calls with speech therapy plan of care. Speech therapy will see patient starting 07/19 1 times a week times 5 weeks for cognitive communication. No call back needed unless questions. Jagruti Malloy RN [facility] Telephone encounter Note * Telephone Encounter - Jagruti Malloy RN - 07/24/2025 4:48 PM EDT Rula LEONARD from [facility] calls with speech therapy plan of care. Speech therapy will see patient starting 07/19 1 times a week times 5 weeks for cognitive communication. No call back needed unless questions. Jagruti Malloy RN [facility]09-05-[facility]25 Telephone encounter Note* Telephone Encounter - Katie Langston LPN - 07/24/2025 3:43 PM EDT Larisa from [facility] calling will begin OT visits next week, delay of care since scheduling was full. No need for return call. [facility]09-05[facility] Telephone encounter Note* Telephone Encounter - Michaelle Tai RN - 07/24/2025 12:21 PM EDT [facility]- phoned to report patient had a missed PT appt today. Reports daughter sent text stating patient had a last minute appt today that was at the same time as PT appt, and rescheduledfor early next week. [facility] Miscellaneous Notes* Telephone Encounter - Michaelle Tai RN - 07/24/2025 12:21 PM EDT [facility]- phoned to report patient had a missed PT appt today. Reports daughter sent text stating patient had a last minute appt today that was at the same time as PT appt, and rescheduledfor early next week. documented in this encounter[facility] History and physical note Author Lisa Lobato [facility] Note Date/Time July 22, 2025 12:53pm [facility] [address] [place] [address] H&P Exam - Wound Care 07/22/25 1239 MR#: [id number] Acct: [id number] Name: MICHAELA BRANDT Rep #:[id number] : 1940 84 From: Lisa Lobato NP STERILE PROCESSING TECH-C PCP: Dr. Anaid Santiago MD Status:REG R CR Location: History of Present Illness Date of Service: 07/22/25 Chief Complaint: Follow-up on her bilateral buttocks open wounds from pressure. History of Wound: 84-year-old white female that apparently had fallen back in February and broke her hip had surgery [facility] a [facility] until abouta week and a half ago and now lives with her daughter and son-in-law. He is thehead of the [facility] and has brought her in today. He states she has a little bit of dementia but she does walk with her walker when prodded and eats okay and has been eating drinking boost at least once a day. 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 She also has incontinence of stool which is apparent on exam. She has a butterfly shaped open wound on her buttocks right and left into the coccyx. Son-in-law is not sure if this startedin the hospital or at the fci but she was getting zinc oxide on her buttocks. They do not have a special mattress for her on her bed she does sit on a doughnut on her chair. [facility] Medical History Abnormal finding on urinalysis Generalized weakness Fall Closed intertrochanteric fracture of left hip Fall [...] mg PO QHS anxiety 5 06/19/25 History buspirone 5 mg tablet 5 mg PO BID 06/20/25 5 History cholecalciferol (vitamin D3) 125 125 mcg PO DAILY 01/1306/19/25 History mcg (5,000 unit) capsule acetaminophen 500 mg tablet 1,000 mg (2 x 500 mg) PO Q 8 #0 tabs 06/25/25 Unknown Rx clonazepam 0.5 mg tablet 0.5 mg PO Q8H PRN anxiety #6 tabs 06/25/25 Unknown Rx menthol 0.44 %-zinc oxide 20.6 % 1 applic topical BID #0 grams 06/25/25 Unknown Rx topical ointment (Calmoseptine) sennosides 8.6 mg-docusate sodium 2 tab PO BID #0 tabs 06/25/25 Unknown Rx 50 mg tablet (Stimulant Laxative Plus) triamcinolone acetonide 0.1 % 1 applic topical BID #15 grams 06/25/25 Unknown Rx topical cream citalopram 20 mg tablet 20 mg PO DAILY 07/22/25 Unkn own History furosemide 20 mg tablet mg PO 07/22/25 Unknown Histo ry Allergy/AdvReac Type Severity Reaction Status Date / Time No Known Allergies Allergy Verified 07/22/25 09:19 Family History Other Hypertension Surgical History H/O: hysterectomy Status post right knee replacement Social History household members: none housing: apartment current occupational status: retired other: Daughter lives a few doors down helps her on a regular basis Smoking Status: Never smoker alcohol intake: never substance use type: does not use ROS Constitutional Constitutional: Reports systems reviewed and no addt'l complaints, except as documented Eyes Eyes: Reports systems reviewed and no addt'l complaints, except as documented ENT HEENT: Reports systems reviewed and no addt'l complaints, except as documented Cardiovascular Cardiovascular: Reports systems reviewed and no addt'l complaints, except as documented Respiratory/Chest Respiratory/Chest: Reports systems reviewed and no addt'l complaints, except as documented Gastrointestinal Gastrointestinal: Reports other Details: She is incontinent of her stool soft and mushy light brown ; Denies abdominal pain, constipation, diarrhea, dyspepsia, hematemesis, hematochezia, melena, nausea or vomiting Genitourinary Genitourinary: Reports other Details: Incontinent of urine and has a Lizarraga 2- CdAwith clear yellow urine Musculoskeletal Musculoskeletal: Reports systems reviewed and no addt'l complaints, except as documented Integumentary Integumentary: Reports wounds and other Details: Open butterfly shaped wound on her bilateral buttocks into her coccyx. Neurologic Neurologic: Reports systems reviewed and no addt'l complaints, except as documented Psychiatric Psychiatric: Reports systems reviewed and no addt'l complaints, except as documented Endocrine Endocrinology: Reports systems reviewed and no addt'l complaints, except as documented Hematologic/Lymphatic Hematologic/Lymphatic: Reports systems reviewed and no addt'l complaints, exceptas documented Allergic/Immunologic Allergic/Immunologic: Reports systems reviewed and no addt'l complaints, except as documented Vital Signs Vital Signs Vital Signs: 07/22/25 09:25 Temperature 97.4 F L Temperature Source Temporal Pulse Rate 67 Respiratory Rate 18 Blood Pressure 129/60 H Blood Pressure Mean 83 Blood Pressure Source Monitor Blood Pressure Position Semi-Fowlers Blood Pressure Location Left Arm Weight Weight: 123 lb Body Mass Index (BMI) 23.2 Physical Exam Const General Appearance: cooperative HEENT normocephalic Face and Sinus: normal facial exam External Ear: external ears normal Eyes PERRL General Eye: normal appearance of both eyes Neck full ROM General: normal visual inspection Resp normal respiratory effort Cardio regular rate and regular rhythm Palpation: normal PMI Rate: regular rate Rhythm: regular rhythm external exam normal Back/Spine Cervical Spine: cervical ROM normal Thoracic Spine / Upper Back: normal to inspection Lumbar Spine / Lower Back: normal to inspection Extremity normal to inspection Skin Wounds: wounds noted Wound Narrative: Butterfly shaped open wound superficial on bilateral right and left buttocks andsacral area Psych Appearance: grossly normal Speech: normal speech Debridement Note Debridement Note Wound debrided: Bilateral buttocks and sacrum area Wound Grade/Stage: Stage II Type of Debridement: Excisional debridement Anesthesia Used: 5% Lidocaine Gel Depth: in the subcutaneous layer Percentage of wound debrided: 100 Instrument Used: 5mm curette Tissue Removed: Fibrin Severity: Limited To Skin Breakdown Amount of bleeding with debridement: Mild Bleeding Controlled with: Compression and gauze Patient tolerated procedure: Patient tolerated procedure well Post-Debridement Measurements and Additional Note: Post-Debridement Measurements/Treatment - Nurse 1 - General Ulcer Assessment Start: 07/22/25 09:18 Freq: Status: Active Protocol: HARRY.ALICJAT Activity Type Activity Date Activity User E-sign Co-sign Detail Recorded Client Recorded Date Recorded By Document 07/22/25 09:25 CHERELLE [id number] 07/22/25 09:32 RB 07/22/25 09:25 - Today's Visit Information Type of service Initial Visit Arrival Mode Ambulatory Transfer Assistance None Patient Identification Verified (Name & Yes ) Patient Requires Transmission-Based No Precautions Height and Weight Height 5 ft 1 in Weight 123 lb Weight in Pounds 123.0 lbs Body Mass Index (BMI) 23.2 BMI Classification Normal Vital Signs Temperature (97.8 F-99.1 F) 97.4 F L Temperature Source Temporal Pulse Rate (60-100) 67 Pulse Location Monitor Respiratory Rate (12-18) 18 Respiratory rate source Observation Blood Pressure (90/60-120/80) 129/60 H Blood Pressure Mean 83 Source Monitor Position Semi-Fowlers Blood Pressure Location Left Arm History Since Last Visit- (Skip if this is Patient's initial visit) Have you changed medications since your No last visit? Any new allergies or adverse reactions No Had a fall/change in ADL's that may No increase risk of falls Signs or symptoms of abuse and/or No neglect since last visit Have you been in the hospital since your No last visit? Has dressing in place as prescribed Yes Has compression in place as prescribed N/A Has offloadiing in place as prescribed N/A Experienced any changes in pain level or No management Left Footwear Regular Shoe Right Footwear Regular Shoe Pain Scale: 0-10 Numeric Is Patient Pain Free? No buttock -Description Aching -Intensity 5 -Duration (hours) Acute -Pain Behavior Withdrawal from Touch -Pain Aggravating Factors ADL's -Alleviating Factors/Interventions None Communication Assessment Preferred language Macanese Heavy Equipment Plumbing Supervisor Required No Able to Read Yes Able to Write Yes Communication Tools None Caregiver Communication Skills No Impairment Impairment Right Hearing Abillity Normal Left Hearing Abillity Normal Visual Assistive Devices Glasses Teaching Assessment Preferences Verbal,Written, Demonstration Barriers to Learning Knowledge Deficit Readiness To Learn Poor Willingness to Engage in Self Management Low Activies Readiness to Engage in Self Management Low Activities Anxiety Level Calm Cooperation Cooperative Perception Coherent Interest in Health Problem Asks Questions Education Importance Acknowledges Need Does Patient Smoke tobacco or other No substances Smoking Status Never smoker Is Patient Diabetic Yes Functional Assessment Recent Decline in Ability to Perform Ambulation, Bathing,Eating/ Feeding Assistive Device With Patient No Culture/Jewish/Preventative Maintenance Technician Cultural/Jewish Needs that may affect No Treatment Plan Would you allow our hospital call circuit worker to No meet you for the purpose of spiritual/ emotional support? Preventative Maintenance Technician to contact place of buddhist No Teaching: Wound Center *Welcome to the Wound Center -Person Taught Patient,Family -Teaching Method Discussion, Demonstration -Response to teaching Verbalize Understanding HARRY - Nurse 1 - General Ulcer Measurement Start: 07/22/25 09:18 Freq: Status: Active Protocol: Activity Type Activity Date Activity User E-sign Co-sign Detail Recorded Client Recorded Date Recorded By Document 07/22/25 09:25 RB [id number] 07/22/25 09:32 RB 07/22/25 09:25 Wound Center Nurse 1 1. RIGHT/LEFT BUTTOCK CLUSTER -Combined with other wound No -Current Size (cm) - Length 5.2 -Current Size (cm) - Width 5.4 -Current Size (cm) - Depth 0.1 -Total Square Cm 28.08 -Photo Taken Yes -Tunneling No -Undermining/Tunneling No -Circular Undermining No -Exudate Amt Medium -Exudate Type Serosanguineous -Wound Margin Distinct, Outline Attached -Granulation Amt Medium (34-66%) -Granulation Quality [place] -Slough/Fibrin Yes -Necrosis Amt Medium (34-66%) -Necrotic Tissue Type Adherent Slough -Structure Exposed N/A -Texture (Hillary-wound Skin Appearance) Assessed, Excoriation -Moisture (Hillary-wound Skin Appearance) Assessed -Color (Hillary-wound Skin Appearance) Assessed -Temperature (Hillary-wound Skin No Abnormality Appearance) (Pt Warm) -Tenderness on Palpation (Hillary-wound No Skin Appearance) -Ulcer Cleansing Wound Cleanser -Foul Odor after Cleansing No -Anesthetic Used 5% Lidocaine Gel HARRY - Nurse 2 - General Ulcer CM Notes Start: 07/22/25 09:18 Freq: Status: Active Protocol: Activity Type Activity Date Activity User E-sign Co-sign Detail Recorded Client Recorded Date Recorded By Document 07/22/25 10:04 [facility] [id number] 07/22/25 10:14 [facility] 07/22/25 10:04 Wound Center Nurse 2 -Time 10:06 -Correct Patient Yes -Correct Side, Site, Position Yes -Correct Procedure Yes -Procedure Performed Yes -Type of Procedure Debridement -Clinical Debridement Subcutaneous -Tissue Removed Subcutaneous -Post Debridement (cm) - Length 6 -Post Debridement (cm) - Width 6 -Post Debridement (cm) - Depth 0.1 -Total Square (Post) (cm) 36 -Area of Debridement (cm) - Length 6 -Area of Debridement (cm) - Width 6 -Total Square (Area) (cm) 36 -Tunneling No -Undermining/Tunneling No -Circular Undermining No -Wound/Ulcer Outcome Not Healed -Ulcer Cleansing Rinsed/ Irrigated with Saline -Foul Odor after Cleansing No -Bioengineered Tissue No -Bleeding Controlled with Pressure -Treatment Response Procedure Tolerated Well -Debridement - Subq, 1st 20sq cm Yes Pain Scale: 0-10 Numeric Is Patient Pain Free? Yes - Nurse 3 - General Ulcer D/C NN Start: 07/22/25 09:18 Freq: Status: Active Protocol: Activity Type Activity Date Activity User E-sign Co-sign Detail Recorded Client Recorded Date Recorded By Document 07/22/25 10:44 [id number] 07/22/25 10:45 07/22/25 10:44 Wound Care Center Nurse 3 1. RIGHT/LEFT BUTTOCK CLUSTER -Ulcer Cleansing Rinsed/ Irrigated with Saline -Primary Dressing Applied Aquacel Extra, Silicone Border Foam 6x6 -Aquacel Extra 1 -Silicone Border Foam 6x6 1 Treatment Response Procedure Tolerated Well Pain Scale: 0-10 Numeric Is Patient Pain Free? Yes - Visit Discharge Discharge Condition Stable Ambulatory Status Wheelchair Transportation Private Auto Accompanied by SON IN LAW Medication Reconcilliation completed & No provided to patient/care provider Clinical Summary of Care Provided Yes Notes: 2 PERSON ASSIST TO WHEELCHAIR Assessment/Plan Assessment/Plan (1) Urinary retention: CODE(S): R33.9 - Retention of urine, unspecified (2) Fecal incontinence: CODE(S): R15.9 - Full incontinence of feces QUALIFIERS: Fecal incontinence type: unspecified Qualified Code(s): R15.9 - Full incontinence of feces (3) Decubitus ulcer of buttock, stage 2: CODE(S): L89.302 - Pressure ulcer of unspecified buttock, stage 2 QUALIFIERS: Laterality: right Qualified Code(s): L89.312 - Pressure ulcer of right buttock, stage 2 PLAN: Wash buttocks and sacral area with antibacterial soap and water apply Aquacel extra to wound base moistened and then cover with a ABD pad daily and asneeded if Becomes soiled Follow-up in 1 week Continue to rotate in bed every hour. Offload is much as possible with a Roho pad under her buttocks when seated in chairs Encourage patient to move frequently and walk Continue to elicit increase food intake with protein and 60 g of protein a day. Samples of Shashi were given to patient to trial. (4) Decubitus ulcer of sacral area: CODE(S): L89.159 - Pressure ulcer of sacral region, unspecified stage QUALIFIERS: Pressure injury stage: stage 2 Qualified Code(s): L89.152 - Pressure ulcer of sacral region, stage 2 (5) Decubitus ulcer of left buttock, stage 2: CODE(S): L89.322 - Pressure ulcer of left buttock, stage 2 07/22/25 1253 <Electronically signed by Lisa Lobato NP STERILE PROCESSING TECH-C> Cosigner Signature (if applicable): CC: ~ Signed [facility] Work Phone: 1(876) 758-550109-03-2025 History and physical note [facility] [address] [place] [address] H&P Exam - Wound Care 07/22/25 1239 MR#: [id number] Acct: [id number] Name: MICHAELA BRANDT Rep #:[id number] : 1940 84 From: Lisa Lobato NP STERILE PROCESSING TECH-C PCP: Dr. Anaid Santiago MD Status:REG R CR Location: History of Present Illness Date of Service: 07/22/25 Chief Complaint: Follow-up on her bilateral buttocks open wounds from pressure. History of Wound: 84-year-old white female that apparently had fallen back in February and broke her hip had surgery went to a [facility] for [facility] until abouta week and a half ago and now lives with her daughter and son-in-law. He is thehead of the [facility] and has brought herin today. He states she has a little bit of dementia but she does walk with her walker when proddedand eats okay and has been eating drinking boost at least once a day. 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 She also has incontinence of stool which is apparent on exam. She has a butterfly shaped open wound on her buttocks right and left into the coccyx. Son-in-law is not sure if this startedin the hospital or at the fci but she was getting zinc oxide on her buttocks. They do not have a special mattress for her on her bed she does sit on a doughnut on her chair. [facility] Medical History (Reviewed 07/22/25 @ 12:42 by Lisa Lobato STERILE PROCESSING TECH, STERILE PROCESSING TECH-C) Abnormal finding on urinalysis Generalized weakness Fall Closed intertrochanteric fracture of left hip Fall [...] mg PO QHS anxiety 5 06/19/25 History buspirone 5 mg tablet 5 mg PO BID 06/20/25 5 History cholecalciferol (vitamin D3) 125 125 mcg PO DAILY 01/1306/19/25 History mcg (5,000 unit) capsule acetaminophen 500 mg tablet 1,000 mg (2 x 500 mg) PO Q 8 #0 tabs 06/25/25 Unknown Rx clonazepam 0.5 mg tablet 0.5 mg PO Q8H PRN anxiety #6 tabs 06/25/25 Unknown Rx menthol 0.44 %-zinc oxide 20.6 % 1 applic topical BID #0 grams 06/25/25 Unknown Rx topical ointment (Calmoseptine) sennosides 8.6 mg-docusate sodium 2 tab PO BID #0 tabs 06/25/25 Unknown Rx 50 mg tablet (Stimulant Laxative Plus) triamcinolone acetonide 0.1 % 1 applic topical BID #15 grams 06/25/25 Unknown Rx topical cream citalopram 20 mg tablet 20 mg PO DAILY 07/22/25 Unkn own History furosemide 20 mg tablet mg PO 07/22/25 Unknown Histo ry Allergy/AdvReac Type Severity Reaction Status Date / Time No Known Allergies Allergy Verified 07/22/25 09:19 Family History Other Hypertension Surgical History H/O: hysterectomy Status post right knee replacement Social History household members: none housing: apartment current occupational status: retired other: Daughter lives a few doors down helps her on a regular basis Smoking Status: Never smoker alcohol intake: never substance use type: does not use ROS Constitutional Constitutional: Reports systems reviewed and no addt'l complaints, except as documented Eyes Eyes: Reports systems reviewed and no addt'l complaints, except as documented ENT HEENT: Reports systems reviewed and no addt'l complaints, except as documented Cardiovascular Cardiovascular: Reports systems reviewed and no addt'l complaints, except as documented Respiratory/Chest Respiratory/Chest: Reports systems reviewed and no addt'l complaints, except as documented Gastrointestinal Gastrointestinal: Reports other Details: She is incontinent of her stool soft and mushy light brown; Denies abdominal pain, constipation, diarrhea, dyspepsia, hematemesis, hematochezia, melena, nauseaor vomiting Genitourinary Genitourinary: Reports other Details: Incontinent of urine and has a Lizarraga 2- CdAwith clear yellow urine Musculoskeletal Musculoskeletal: Reports systems reviewed and no addt'l complaints, except as documented Integumentary Integumentary: Reports wounds and other Details: Open butterfly shaped wound on her bilateral buttocks into her coccyx. Neurologic Neurologic: Reports systems reviewed and no addt'l complaints, except as documented Psychiatric Psychiatric: Reports systems reviewed and no addt'l complaints, except as documented Endocrine Endocrinology: Reports systems reviewed and no addt'l complaints, except as documented Hematologic/Lymphatic Hematologic/Lymphatic: Reports systems reviewed and no addt'l complaints, exceptas documented Allergic/Immunologic Allergic/Immunologic: Reports systems reviewed and no addt'l complaints, except as documented Vital Signs Vital Signs Vital Signs: 07/22/25 09:25 Temperature 97.4 F L Temperature Source Temporal Pulse Rate 67 Respiratory Rate 18 Blood Pressure 129/60 H Blood Pressure Mean 83 Blood Pressure Source Monitor Blood Pressure Position Semi-Fowlers Blood Pressure Location Left Arm Weight Weight: 123 lb Body Mass Index (BMI) 23.2 Physical Exam Const General Appearance: cooperative HEENT normocephalic Face and Sinus: normal facial exam External Ear: external ears normal Eyes PERRL General Eye: normal appearance of both eyes Neck full ROM General: normal visual inspection Resp normal respiratory effort Cardio regular rate and regular rhythm Palpation: normal PMI Rate: regular rate Rhythm: regular rhythm external exam normal Back/Spine Cervical Spine: cervical ROM normal Thoracic Spine / Upper Back: normal to inspection Lumbar Spine / Lower Back: normal to inspection Extremity normal to inspection Skin Wounds: wounds noted Wound Narrative: Butterfly shaped open wound superficial on bilateral right and left buttocks andsacral area Psych Appearance: grossly normal Speech: normal speech Debridement Note Debridement Note Wound debrided: Bilateral buttocks and sacrum area Wound Grade/Stage: Stage II Type of Debridement: Excisional debridement Anesthesia Used: 5% Lidocaine Gel Depth: in the subcutaneous layer Percentage of wound debrided: 100 Instrument Used: 5mm curette Tissue Removed: Fibrin Severity: Limited To Skin Breakdown Amount of bleeding with debridement: Mild Bleeding Controlled with: Compression and gauze Patient tolerated procedure: Patient tolerated procedure well Post-Debridement Measurements and Additional Note: Post-Debridement Measurements/Treatment - Nurse 1 - General Ulcer Assessment Start: 07/22/25 09:18 Freq: Status: Active Protocol: DEYANIRA Activity Type Activity Date Activity User E-sign Co-sign Detail Recorded Client Recorded Date Recorded By Document 07/22/25 09:25 RB [id number] 07/22/25 09:32 RB 07/22/25 09:25 - Today's Visit Information Type of service Initial Visit Arrival Mode Ambulatory Transfer Assistance None Patient Identification Verified (Name & Yes ) Patient Requires Transmission-Based No Precautions Height and Weight Height 5 ft 1 in Weight 123 lb Weight in Pounds 123.0 lbs Body Mass Index (BMI) 23.2 BMI Classification Normal Vital Signs Temperature (97.8 F-99.1 F) 97.4 F L Temperature Source Temporal Pulse Rate (60-100) 67 Pulse Location Monitor Respiratory Rate (12-18) 18 Respiratory rate source Observation Blood Pressure (90/60-120/80) 129/60 H Blood Pressure Mean 83 Source Monitor Position Semi-Fowlers Blood Pressure Location Left Arm History Since Last Visit- (Skip if this is Patient's initial visit) Have you changed medications since your No last visit? Any new allergies or adverse reactions No Had a fall/change in ADL's that may No increase risk of falls Signs or symptoms of abuse and/or No neglect since last visit Have you been in the hospital since your No last visit? Has dressing in place as prescribed Yes Has compression in place as prescribed N/A Has offloadiing in place as prescribed N/A Experienced any changes in pain level or No management Left Footwear Regular Shoe Right Footwear Regular Shoe Pain Scale: 0-10 Numeric Is Patient Pain Free? No buttock -Description Aching -Intensity 5 -Duration (hours) Acute -Pain Behavior Withdrawal from Touch -Pain Aggravating Factors ADL's -Alleviating Factors/Interventions None Communication Assessment Preferred language Macanese Heavy Equipment Plumbing Supervisor Required No Able to Read Yes Able to Write Yes Communication Tools None Caregiver Communication Skills No Impairment Impairment Right Hearing Abillity Normal Left Hearing Abillity Normal Visual Assistive Devices Glasses Teaching Assessment Preferences Verbal,Written, Demonstration Barriers to Learning Knowledge Deficit Readiness To Learn Poor Willingness to Engage in Self Management Low Activies Readiness to Engage in Self Management Low Activities Anxiety Level Calm Cooperation Cooperative Perception Coherent Interest in Health Problem Asks Questions Education Importance Acknowledges Need Does Patient Smoke tobacco or other No substances Smoking Status Never smoker Is Patient Diabetic Yes Functional Assessment Recent Decline in Ability to Perform Ambulation, Bathing,Eating/ Feeding Assistive Device With Patient No Culture/Jewish/Preventative Maintenance Technician Cultural/Jewish Needs that may affect No Treatment Plan Would you allow our hospital call circuit worker to No meet you for the purpose of spiritual/ emotional support? Preventative Maintenance Technician to contact place of buddhist No Teaching: Wound Center *Welcome to the Wound Center -Person Taught Patient,Family -Teaching Method Discussion, Demonstration -Response to teaching Verbalize Understanding WC - Nurse 1 - General Ulcer Measurement Start: 07/22/25 09:18 Freq: Status: Active Protocol: Activity Type Activity Date Activity User E-sign Co-sign Detail Recorded Client Recorded Date Recorded By Document 07/22/25 09:25 RB [id number] 07/22/25 09:32 RB 07/22/25 09:25 Wound Center Nurse 1 1. RIGHT/LEFT BUTTOCK CLUSTER -Combined with other wound No -Current Size (cm) - Length 5.2 -Current Size (cm) - Width 5.4 -Current Size (cm) - Depth 0.1 -Total Square Cm 28.08 -Photo Taken Yes -Tunneling No -Undermining/Tunneling No -Circular Undermining No -Exudate Amt Medium -Exudate Type Serosanguineous -Wound Margin Distinct, Outline Attached -Granulation Amt Medium (34-66%) -Granulation Quality Plain [place]aling -Slough/Fibrin Yes -Necrosis Amt Medium (34-66%) -Necrotic Tissue Type Adherent Slough -Structure Exposed N/A -Texture (Hillary-wound Skin Appearance) Assessed, Excoriation -Moisture (Hillary-wound Skin Appearance) Assessed -Color (Hillary-wound Skin Appearance) Assessed -Temperature (Hillary-wound Skin No Abnormality Appearance) (Pt Warm) -Tenderness on Palpation (Hillary-wound No Skin Appearance) -Ulcer Cleansing Wound Cleanser -Foul Odor after Cleansing No -Anesthetic Used 5% Lidocaine Gel - Nurse 2 - General Ulcer CM Notes Start: 07/22/25 09:18 Freq: Status: Active Protocol: Activity Type Activity Date Activity User E-sign Co-sign Detail Recorded Client Recorded Date Recorded By Document 07/22/25 10:04 [facility] [id number] 07/22/25 10:14 [facility] 07/22/25 10:04 Wound Center Nurse 2 -Time 10:06 -Correct Patient Yes -Correct Side, Site, Position Yes -Correct Procedure Yes -Procedure Performed Yes -Type of Procedure Debridement -Clinical Debridement Subcutaneous -Tissue Removed Subcutaneous -Post Debridement (cm) - Length 6 -Post Debridement (cm) - Width 6 -Post Debridement (cm) - Depth 0.1 -Total Square (Post) (cm) 36 -Area of Debridement (cm) - Length 6 -Area of Debridement (cm) - Width 6 -Total Square (Area) (cm) 36 -Tunneling No -Undermining/Tunneling No -Circular Undermining No -Wound/Ulcer Outcome Not Healed -Ulcer Cleansing Rinsed/ Irrigated with Saline -Foul Odor after Cleansing No -Bioengineered Tissue No -Bleeding Controlled with Pressure -Treatment Response Procedure Tolerated Well -Debridement - Subq, 1st 20sq cm Yes Pain Scale: 0-10 Numeric Is Patient Pain Free? Yes - Nurse 3 - General Ulcer D/C NN Start: 07/22/25 09:18 Freq: Status: Active Protocol: Activity Type Activity Date Activity User E-sign Co-sign Detail Recorded Client Recorded Date Recorded By Document 07/22/25 10:44 CHERELLE [id number] 07/22/25 10:45 RB 07/22/25 10:44 Wound Care Center Nurse 3 1. RIGHT/LEFT BUTTOCK CLUSTER -Ulcer Cleansing Rinsed/ Irrigated with Saline -Primary Dressing Applied Aquacel Extra, Silicone Border Foam 6x6 -Aquacel Extra 1 -Silicone Border Foam 6x6 1 Treatment Response Procedure Tolerated Well Pain Scale: 0-10 Numeric Is Patient Pain Free? Yes - Visit Discharge Discharge Condition Stable Ambulatory Status Wheelchair Transportation Private Auto Accompanied by SON IN LAW Medication Reconcilliation completed & No provided to patient/care provider Clinical Summary of Care Provided Yes Notes: 2 PERSON ASSIST TO WHEELCHAIR Assessment/Plan Assessment/Plan (1) Urinary retention: CODE(S): R33.9 - Retention of urine, unspecified (2) Fecal incontinence: CODE(S): R15.9 - Full incontinence of feces QUALIFIERS: Fecal incontinence type: unspecified Qualified Code(s): R15.9 - Full incontinence of feces (3) Decubitus ulcer of buttock, stage 2: CODE(S): L89.302 - Pressure ulcer of unspecified buttock, stage 2 QUALIFIERS: Laterality: right Qualified Code(s): L89.312 - Pressure ulcer of right buttock, stage 2 PLAN: Wash buttocks and sacral area with antibacterial soap and water apply Aquacel extra to wound base moistened and then cover with a ABD pad daily and asneeded if Becomes soiled Follow-up in 1 week Continue to rotate in bed every hour. Offload is much as possible with a Roho pad under her buttocks when seated in chairs Encourage patient to move frequently and walk Continue to elicit increase food intake with protein and 60 g of protein a day. Samples of Shashi were given to patient to trial. (4) Decubitus ulcer of sacral area: CODE(S): L89.159 - Pressure ulcer of sacral region, unspecified stage QUALIFIERS: Pressure injury stage: stage 2 Qualified Code(s): L89.152 - Pressure ulcer of sacral region, stage 2 (5) Decubitus ulcer of left buttock, stage 2: CODE(S): L89.322 - Pressure ulcer of left buttock, stage 2 07/22/25 1253 Cosigner Signature (if applicable): CC: ~ Signed [facility]09-02-2025 Telephone encounter Note* Telephone Encounter - Radha Haro LPN - 07/21/2025 2:56 PM EDT Duplicate Radha Haro LPN [facility]09-02-2025 Miscellaneous Notes* Telephone Encounter - Radha Haro LPN - 07/21/2025 2:56 PM EDT Duplicate Radha Haro LPN documented in this encounterMet[facility] Telephone encounter Note * Telephone Encounter - Renate Montgomery MSW - 07/21/2025 2:25 PM EDT Thomas spoke with patient daughter and she requests that SW either mail or My Chart the medical alert button options. Thomas will send medical alert button options to patient daughter. Sw and daughter also discussed [facility] and [facility] as other home ostomy care nurse options to compare prices to [facility]. Osmany notes that she will compare prices of other home ostomy care nurse agencies. [facility] is coming out to see patient for PT and daughter is still waiting to hear when skillednursing from [facility] will be seeing patient. [facility]09-02-2025 Miscellaneous Notes* Telephone Encounter - Renate Montgomery MSW - 07/21/2025 2:25 PM EDT Thomas spoke with patient daughter and she requests that SW either mail or My Chart the medical alert button options. Thomas will send medical alert button options to patient daughter. Sw and daughter also discussed [facility] and [facility] as other home ostomy care nurse options to compare prices to [facility]. Osmany notes that she will compare prices of other home ostomy care nurse agencies. [facility] is coming out to see patient for PT and daughter is still waiting to hear when skillednursing from [facility] will be seeing patient. * Telephone Encounter - Renate Montgomery MSW - 07/17/2025 3:29 PM EDT Thomas left message for return call in regards to medical alert button options for patient. documented in this encounterMet[facility]08-29-2025 Telephone encounter Note * Telephone Encounter - Renate Montgomery MSW - 07/17/2025 3:29 PM EDT Thomas left message for return call in regards to medical alert button options for patient. [facility]08-29-2025 NoteHNO ID: [id number] Author: ANAID SANTIAGO MD Service: ? Author Type: Physician Type: Progress Notes Filed: 07/17/2025 13:07 Note Text: Reason for Visit Follow up HPI Michaela Brandt is an 84-year-old female, with a history of dementia, presenting with multiple falls, cystitis, and pressure ulcers. Michaela was admitted to [facility] on 06/20 and discharged on 06/25. [...] care by her insurance and stayed at [facility] for a couple of weeks, but did not receive much physical therapy. Michaela's daughter is hopeful that with physical therapy at home, Michaela will improve. Michaela has a home health aide from [facility] who helps with showers and getting Michaela [...] mg tab(s) Catheter (SELF-CATHETER, FEMALE) 14 Fr [facility] Health Maintenance DTaP,Tdap,Td Vaccine(1 - Tdap) Bone [...] and rule out other (more content not included)...[facility]08-29-2025 History of Present illness Narrative* Anaid Santiago MD - 07/17/2025 12:57 PM EDT Reason for Visit Follow up HPI Michaela Brandt is an 84-year-old female, with a history of dementia, presenting with multiple falls,cystitis, and pressure ulcers. Michaela was admitted to [facility] on 06/20 and discharged on 06/25. [...] care by her insurance and stayed at [facility] for a couple of weeks, but did not receive much physical therapy. Michaela's daughter is hopeful that with physical therapy at home, Michaela will improve. Michaela has a home health aide from [facility] who helps with showers and getting Michaela [...] mg tab(s) Catheter (SELF-CATHETER, FEMALE) 14 Fr [facility] Health Maintenance DTaP,Tdap,Td Vaccine(1 - Tdap) Bone [...] Pressure injury of right buttock, stage 2 ([facility]) (L89.312) Stage 2 pressure injury of the [...] excuse any unintended typographical errors. Recording using [employer] software for draft documentation of the visit was discussed with the patient/authorized senior outside sales representative; all questions welcomed and answered. Patient/authorized senior outside sales representative agreed to proceed Anaid Santiago MD [1] Social History Tobacco Use Smoking status: Never Smokeless tobacco: Never Vaping Use Vaping status: Never Used Substance Use Topics Alcohol use: Never Drug use: Never documented in this encounterMet[facility]08-29-2025 Instructions* Patient Instructions* Anaid Santiago MD - 07/17/2025 12:28 PM EDT We discussed your recent hospitalization and current health concerns: - You were hospitalized from June 20 to June 25 for a urinary tract infection (UTI) caused byE. coli. You are currently taking Keflex (antibiotic) and should continue this as prescribed. - Your white blood cell count was elevated to 28,000 during your hospitalization. This is a significant finding, and we need to monitor it to ensure it is trending down. - You have a Lizarraga catheter in place. senior living will assist with catheter care. We discussed your pressure sores and wound care: - You have stage 2 pressure sores on your buttocks. These require regular care to prevent worsening. - I am sending a referral to the wound care clinic at [facility]. Please call the clinic toschedule an appointment as soon as possible. - senior living will assist with wound care, including cleaning and dressing the sores. - To help prevent further pressure sores, alternate your position frequently (e.g., lying on your side instead of sitting for prolonged periods). We discussed your bowel concerns: - You do not have hemorrhoids, but you have impacted stool on one side, which is causing discomfortand overflow diarrhea. - A home health nurse [...] evaluated you. Please follow the therapy schedule theyprovide. - senior living and your caregiver will assist with mobility and daily activities, such as getting up, moving around, and taking showers. We discussed your mood and medications: - You are currently taking Lexapro 20 mg daily. You may continue this until the supply is finished,then switch to Celexa as prescribed. - Lasix (a diuretic) will be prescribed to help manage any fluid retention. Take this twice a week (Sunday and ). This prescription will be sent to your [facility] pharmacy. We discussed additional recommendations: - Consider [...] appointment with the wound care clinic at [facility]. - Follow up with residential for catheter care, wound care, and enema [...] recover and regain strength. documented in this encounterMet[facility]08-28-2025 Telephone encounter Note * Telephone Encounter - Mike Guo MA - 07/16/2025 5:00 PM EDT Left message on secure VM with verbal ok. Mike Guo MA [facility]08-28-2025 Miscellaneous Notes* Telephone Encounter - Mike Guo MA - 07/16/2025 5:00 PM EDT Left message on secure VM with verbal ok. Mike Guo MA * Telephone Encounter - Anaid Santiago MD - 07/16/2025 4:50 PM EDT Noted and agree Regards, Anaid Santiago MD * Telephone Encounter - Kecia Red RN - 07/16/2025 9:03 AM EDT German with [facility] calls to let provider know that patient was seen for PT soc and they will continue PT services. German is asking if provider would add an SN eval and Tx to the POC for catheter care and wound care.German reports patient has some fairly significant pressure ulcers to bilateral gluteus with no orders in place. Patient is scheduled to see provider on 07/17/2025 and HH would need wound care orders as well. German requests call back at [phone]. Kecia Red RN documented in this encounterMet[facility]08-28-2025 Telephone encounter Note * Telephone Encounter - Anaid Santiago MD - 07/16/2025 4:50 PM EDT Noted and agree Regards, Anaid Santiago MD [facility]08-28-2025 Telephone encounter Note* Telephone Encounter - Kecia Red RN - 07/16/2025 9:03 AM EDT German with [facility] calls to let provider know that patient was seen for PT soc and they will continue PT services. German is asking if provider would add an SN eval and Tx to the POC for catheter care and wound care.German reports patient has some fairly significant pressure ulcers to bilateral gluteus with no orders in place. Patient is scheduled to see provider on 07/17/2025 and HH would need wound care orders as well. German requests call back at [phone]. Kecia Red RN [facility]08-27-2025 Telephone encounter Note* Telephone Encounter - Radha Haro LPN - 07/15/2025 1:12 PM EDT Patient has been identified by [...] Please advise. Thank you. Radha Haro LPN. [facility]08-27-2025 Miscellaneous Notes* Telephone Encounter - Radha Haro LPN - 07/15/2025 1:12 PM EDT Patient has been identified by [...] you. Radha Haro LPN. documented in this encounterMet[facility]08-27-2025 Telephone encounter Note * Telephone Encounter - Radha Haro LPN - 07/15/2025 1:10 PM EDT Patient has been identified by [...] Please advise. Thank you. Radha Haro LPN. [facility]08-27-2025 Miscellaneous Notes* Telephone Encounter - Radha Haro LPN - 07/15/2025 1:10 PM EDT Patient has been identified by [...] you. Radha Haro LPN. documented in this encounterMetrohealth [facility]08-26-2025 NoteHNO ID: [id number] Author: DEANA KLEIN, ? Service: ? Author [...] A1C (%) Date Value 05/06/2025 4.2 PCP: Anaid Santiago MD PAST MEDICAL HISTORY Diagnosis Date [...] digits 1-5 b/l Skin temperature warm to disaster recovery coordinator proximal to distal b/l Hair growth [...] modifier. Deana Klein DPM (more content not included)...[facility]08-26-2025 History of Present illness Narrative* Latoya Deana - 07/14/2025 9:56 AM EDT Consultation requested by Dr. Santiago for an [...] A1C (%) Date Value 05/06/2025 4.2 PCP: Anaid Santiago MD PAST MEDICAL HISTORY Diagnosis Date [...] digits 1-5 b/l Skin temperature warm to disaster recovery coordinator proximal to distal b/l Hair growth [...] patient demonstrates absent dp and absent PT pulseswith temperature and color changes and nail changes. She qualifies for [facility]one care based on q8 modifier. Deana Klein DPM Podiatry [address] [facility] [address] Dept: [phone] Dept [1] Social History Tobacco Use Smoking status: Never Smokeless tobacco: Never Vaping Use Vaping status: Never Used Substance Use Topics Alcohol use: Never Drug use: Never * Sirisha Pena LPN - 07/14/2025 9:51 AM EDT AMB ROOMING INTAKE FLOWSHEET DATA Patient presents with: Left Foot - nail deformity , New, nail care Right Foot - New, nail deformity , nail care Sirisha Pena LPN documented in this encounterMet[facility]08-26-2025 NoteHNO ID: [id number] Author: SIRISHA PENA LPN Service: ? Author Type: Licensed Nurse Type: Progress Notes Filed: 07/14/2025 11:46 Note Text: AMB ROOMING INTAKE FLOWSHEET DATA Patient presents with: Left Foot - nail deformity , New, nail care Right Foot - New, nail deformity , nail care [facility] Telephone encounter Note* Telephone Encounter - Mike Guo MA - 07/14/2025 8:29 AM EDT Left detailed message on identified VM. Mike Guo MA [facility]08-26-2025 Miscellaneous Notes* Telephone Encounter - Mike Guo MA - 07/14/2025 8:29 AM EDT Left detailed message on identified VM. Mike Guo MA * Telephone Encounter - Anaid Santiago MD - 07/13/2025 5:06 PM EDT Yes will follow, Anaid Patel MD * Telephone Encounter - Porsha Vasquez RN - 07/13/2025 4:29 PM EDT Berta with [facility] calling and asking if provider is agreeable to signing and following patient for PT, OT and ST orders? Berta states patient was discharged from [facility]. Had UTI, weakness. Please call Berta back at [phone]. Porsha Vasquez RN documented in this encounterMet[facility]08-25-2025 Telephone encounter Note * Telephone Encounter - Anaid Santiago MD - 07/13/2025 5:06 PM EDT Yes will follow, Anaid Patel MD [facility]08-25-2025 Telephone encounter Note* Telephone Encounter - Porsha Vasquez RN - 07/13/2025 4:29 PM EDT Berta with [facility] calling and asking if provider is agreeable to signing and following patient for PT, OT and ST orders? Berta states patient was discharged from [facility]. Had UTI, weakness. Please call Berta back at [phone]. Porsha Vasquez RN [facility]08-07-2025 [facility]08-02-2025 Evaluation note* Diagnosis Onset Date Resolution Status Admit Date Abnormal finding on urinalysis inactive June 20, 2025 2:26pm Fall inactive June 20 2:26pm Generalized weakness inactive Augu st 2024 2:26pm Self-catheterizes urinary bladder inactive June 20, 2025 2:26pm Decubitus ulcer of buttock, stage 2 acute July 29, 2025 9:30am Decubitus ulcer of left buttock, stage 2 acute July 29, 2025 9:30am Decubitus ulcer of sacral area acute July 29, 2025 9:30am Fecal incontinence acute Septem abigail 2024 9:30am Urinary retention acute Septemb er 2024 9:30am [facility] Work Phone: 1(931) 491-640508-02-2025 Evaluation note* Diagnosis Onset Date Resolution Status Admit Date Abnormal finding on urinalysis inactive June 20, 2025 2:26pm Fall inactive June 20 2:26pm Generalized weakness inactive Augu st 2024 2:26pm Self-catheterizes urinary bladder inactive June 20, 2025 2:26pm Decubitus ulcer of buttock, stage 2 acute August 05, 2025 9:30am Decubitus ulcer of left buttock, stage 2 acute August 05, 2025 9:30am Decubitus ulcer of sacral area acute August 05, 2025 9:30am Fecal incontinence acute Septem abigail 2024 9:30am Urinary retention acute Septemb er 2024 9:30am [facility] Work Phone: 1(991) 705-123408-02-2025 Discharge summary Author Wesley Jones [facility] Note Date/Time June 20, 2025 1:3 5pm [facility] Medical Records Department [address] [place] [address] Emergency Department Summary 06/20/25 MR#: [id number] Acct: [id number] Name: MICHAELA BRANDT Rep #:[id number] : 1940 84 From: Wesley Jones DO PCP: Dr. Anaid Santiago MD Status:REG E R Location: ED [...] They note that she is on Eliquis. [facility] Medical History Closed intertrochanteric fracture of [...] Patient follow commands as she was at [facility] Skin: Warm, dry, intact patient does [...] showed sinus rhythm rate of 72 bpm. NH interval was 200. Did discuss case with [...] 89.2 H Lymph % (Auto) 3.5 L Beltrami % (Auto) 5.6 Eos % (Auto) 0.0 [...] Clarity Clear Urine pH 5.0 Ur Specific Dulce 1.015 Urine Protein 30 H Urine Glucose [...] findings. Chronic findings as described. Reading Location: [facility] Cervical Spine CT 06/20/25 08:48 IMPRESSION: NO ACUTE CERVICAL FRACTURE. DEGENERATIVE CHANGES. Reading Location: [facility] Chest/Abdomen/Pelvis CT 06/20/25 08:48 IMPRESSION: CT chest: [...] ultrasound recommended for further evaluation. Reading Location: [facility] Elbow X-Ray 06/20/25 09:50 IMPRESSION: Osteopenia, no demonstrated fracture or joint space abnormalities Reading Location: 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 There is still evidence of fracture lucency and cortical irregularity. No hardware complication noted. 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 Reading Location: [id number] Knee X-Ray 06/20/25 09:50 IMPRESSION: Tricompartmental arthrosis with chondrocalcinosis, no demonstrated acute fracture or suspicious osseous lesion Surgical hardware in the patella from previous ORIF free of complication Reading Location: [id number] Knee X-Ray 06/20/25 09:50 IMPRESSION: DEGENERATIVE OSTEOARTHROSIS. NO ACUTE FINDINGS. Reading Location: [facility] Discharge Plan Triage Chief Complaint: Fall ED [...] 500 mg PO DAILY Primary Care Provider: Anaid Santiago Referrals: Anaid Santiago MD [Primary Care Provider] - Print Language: Macanese Disposition Disposition: Acute Care Hospital [facility] What to do if you have Problems For any increased pain, shortness of breath, bleeding, nausea or vomiting, chestpain, or any unexpected problems, contact your Primary Care Provider. Call [facility] ([phone]) or report to the closest Emergency Room. Call 911 if necessary. 06/20/25 1335 <Electronically signed by Wesley Jones DO> Cosigner Signature (if applicable): CC: Dr. Anaid Santiago MD ~ Signed [facility] Work Phone: 1(725) 580-529808-02-2025 History and physical note [facility] Medical Records Department [address] [place] [address] H&P Exam - Hospitalist 06/20/25 1425 MR#: [id number] Acct: [id number] Name: MICHAELA BRANDT Rep #:[id number] : 1940 84 From: Cindy Molina MD PCP: Dr. Anaid Santiago MD Status:ADM I N Location: MS3 [id number] HPI - General General Date of Admission: 06/20/25 Date of Service: 06/20/25 Chief Complaint: Knee pain after fall HPI Narrative MICHAELA BRANDT, is a 84-year-old female history of hypothyroidism, dementia, urinary self catheterization, hypertension, depression, on Eliquis who presentedto [facility] ED 06/20/2025 after a fall. Reportedly [...] yet. No fevers or other acute complaints [facility] Medical History (Updated 06/20/25 @ 14:55 by [...] Narrative General: Alert, knows she is at [facility], initially thought year was 2028 but [...] 89.2 H, Lymph % (Auto) 3.5 L, Beltrami % (Auto) 5.6, Eos % (Auto) 0.0, [...] Clarity Clear, Urine pH 5.0, Ur Specific Dulce 1.015, Urine Protein 30 H, Urine Glucose [...] findings. Chronic findings as described. Reading Location: [facility] Cervical Spine CT 06/20/25 08:48 IMPRESSION: NO ACUTE CERVICAL FRACTURE. DEGENERATIVE CHANGES. Reading Location: [facility] Chest/Abdomen/Pelvis CT 06/20/25 08:48 IMPRESSION: CT chest: [...] ultrasound recommended for further evaluation. 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 There is still evidence of fracture lucency and cortical irregularity. No hardware complication noted. 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 Reading Location: [id number] Knee X-Ray 06/20/25 09:50 IMPRESSION: Tricompartmental arthrosis with chondrocalcinosis, no demonstrated acute fracture or suspicious osseous lesion Surgical hardware in the patella from previous ORIF free of complication Reading Location: [facility] Knee X-Ray 06/20/25 09:50 IMPRESSION: DEGENERATIVE OSTEOARTHROSIS. NO ACUTE FINDINGS. Reading Location: [id number] Assessment & Plan Assessment/Plan (1) Fall: (2) [...] Molina MD Charges/Coding Visit Charges Inpatient E&M: 09733 Init Hosp L2 06/20/25 1455 Cosigner Signature (if applicable): CC: Dr. Anaid Santiago MD; Dr. Cindy Molina MD~ Signed [facility]08-02-2025 Discharge summary [facility] Medical Records Department [address] [place] [address] Emergency Department Summary 06/20/25 MR#: [id number] Acct: [id number] Name: MICHAELA BRANDT Rep #:[id number] : 1940 84 From: Wesley Jones DO PCP: Dr. Anaid Santiago MD Status:REG E R Location: ED [...] They note that she is on Eliquis. [facility] Medical History Closed intertrochanteric fracture of [...] Patient follow commands as she was at [facility] Skin: Warm, dry, intact patient does [...] showed sinus rhythm rate of 72 bpm. NH interval was 200. Did discuss case with [...] 89.2 H Lymph % (Auto) 3.5 L Beltrami % (Auto) 5.6 Eos % (Auto) 0.0 [...] Clarity Clear Urine pH 5.0 Ur Specific Dulce 1.015 Urine Protein 30 H Urine Glucose [...] findings. Chronic findings as described. Reading Location: [facility] Cervical Spine CT 06/20/25 08:48 IMPRESSION: NO ACUTE CERVICAL FRACTURE. DEGENERATIVE CHANGES. Reading Location: [facility] Chest/Abdomen/Pelvis CT 06/20/25 08:48 IMPRESSION: CT chest: [...] ultrasound recommended for further evaluation. Reading Location: [facility] Elbow X-Ray 06/20/25 09:50 IMPRESSION: Osteopenia, no demonstrated fracture or joint space abnormalities Reading Location: 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 There is still evidence of fracture lucency and cortical irregularity. No hardware complication noted. 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 Reading Location: [facility] Knee X-Ray 06/20/25 09:50 IMPRESSION: Tricompartmental arthrosis with chondrocalcinosis, no demonstrated acute fracture or suspicious osseous lesion Surgical hardware in the patella from previous ORIF free of complication Reading Location: [id number] Knee X-Ray 06/20/25 09:50 IMPRESSION: DEGENERATIVE OSTEOARTHROSIS. NO ACUTE FINDINGS. Reading Location: [facility] Discharge Plan Triage Chief Complaint: Fall ED [...] 500 mg PO DAILY Primary Care Provider: Anaid Santiago Referrals: Anaid Santiago MD [Primary Care Provider] - Print Language: Macanese Disposition Disposition: Acute Care Hospital [facility] What to do if you have Problems For any increased pain, shortness of breath, bleeding, nausea or vomiting, chestpain, or any unexpected problems, contact your Primary Care Provider. Call [facility] ([phone]) or report tothe closest Emergency Room. Call 911 if necessary. 06/20/25 1335 Cosigner Signature (if applicable): CC: Dr. Anaid Santiago MD ~ Signed [facility]08-02-2025 Radiology Diagnostic study note [facility] Imaging Services [address], [place] [id number] Elbow min 3 Views MR#: [id number] Acct: [id number] Name: MICHAELA BRANDT Rep #: [id number] : 1940 F 84 From: Ari Salmon MD PCP: Dr. Anaid Santiago MD Status: REG E R Study:Elbow min 3 Views Date of Exam: Exam# [id number] Ordering Dr: Irene Jones DO PROCEDURE: ELBOW MIN 3 VIEWS 06/20/2025 REASON FOR EXAM: FALL TECHNIQUE: ELBOW MIN 3 VIEWS FINDINGS: Bones: Bones are demineralized. No demonstrated acute fracture or suspicious osseous lesion Joints: Well-preserved Soft tissues: No suspicious soft tissue swelling or joint effusion Other: RAD/Elbow min 3 Views IMPRESSION: Osteopenia, no demonstrated fracture or joint space abnormalities Reading Location: [facility] CC: Dr. Anaid Santiago MD; Dr. Wesley Jones DO ~ Brake Press Operator: Signed [facility]08-02-2025 Radiology Diagnostic study note [facility] Imaging Services [address] [place] [address] Knee 1 or 2 Views MR#: [id number] Acct: [id number] Name: MICHAELA BRANDT Rep #: [id number] : 1940 F 84 From: Jo Rabago MD PCP: Dr. Anaid Santiago MD Status: REG E R Study:Knee 1 or 2 Views Date of Exam: Exam# [id number] Ordering Dr: Irene Jones DO PROCEDURE: KNEE 1 OR 2 [...] DEGENERATIVE OSTEOARTHROSIS. NO ACUTE FINDINGS. Reading Location: [facility] CC: Dr. Anaid Santiago MD; Dr. Wesley Jones DO ~ Brake Press Operator: Signed [facility]08-02-2025 Radiology Diagnostic study note [facility] Imaging Services [address] [place] [address] HIP, UNI W/ Pelvis 2-3 Views MR#: [id number] Acct: [id number] Name: MICHAELA BRANDT Rep #: [id number] : 1940 F 84 From: Ari Salmon MD PCP: Dr. Anaid Santiago MD Status: REG E R Study:HIP, UNI W/ Pelvis 2-3 Views Date of Ex am: 06/20/25 Exam# [id number] Ordering Dr: Irene Jones DO PROCEDURE: HIP, UNI W/ PELVIS [...] joint arthrosis, no acute abnormality. Reading Location: [id number] CC: Dr. Anaid Santiago MD; Dr. Wesley Jones DO ~ Brake Press Operator: Signed [facility]08-02-2025 Radiology Diagnostic study note [facility] Imaging Services [address] [place] [address] Knee 1 or 2 Views MR#: [id number] Acct: [id number] Name: MICHAELA BRANDT Rep #: [id number] : 1940 F 84 From: Ari Salmon MD PCP: Dr. Anaid Santiago MD Status: REG E R Study:Knee 1 or 2 Views Date of Exam: Exam# [id number] Ordering Dr: Irene Jones DO PROCEDURE: KNEE 1 OR 2 [...] previous ORIF free of complication Reading Location: [id number] CC: Dr. Anaid Santiago MD; Dr. Wesley Jones DO ~ Brake Press Operator: Signed [facility]08-02-2025 Radiology Diagnostic study note [facility] Imaging Services [address] [place] [id number] Chest, Abd, Pel w/Contrast MR#: [id number] Acct: [id number] Name: MICHAELA BRANDT Rep #: [id number] : 1940 F 84 From: Jo Rabago MD PCP: Dr. Anaid Santiago MD Status: REG E R Study:CT Chest, Abd, Pel w/Contrast Date of E xam: 06/20/25 Exam# [id number] Ordering Dr: Irene Jones DO PROCEDURE: CT CHEST, ABD, PEL [...] ultrasound recommended for further evaluation. Reading Location: [id number] CC: Dr. Anaid Santiago MD; Dr. Wesley Jones DO ~ Brake Press Operator: Signed [facility]08-02-2025 Radiology Diagnostic study note [facility] Imaging Services [address] [place] [address] Spine Cervical without Contras MR#: [id number] Acct: [id number] Name: MICHAELA BRANDT Rep #: [id number] : 1940 F 84 From: Jo Rabago MD PCP: Dr. Anaid Santiago MD Status: REG E R Study:Spine Cervical without Contras Date of Exam: 06/20/25 Exam# [id number] Ordering Dr: Irene Jones DO PROCEDURE: SPINE CERVICAL WITHOUT CONTRAS [...] ACUTE CERVICAL FRACTURE. DEGENERATIVE CHANGES. Reading Location: [facility] CC: Dr. Anaid Santiago MD; Dr. Wesley Jones DO ~ Brake Press Operator: Signed [facility]08-02-2025 Radiology Diagnostic study note [facility] Imaging Services [address] [place] [address] Brain/Head without Contrast MR#: [id number] Acct: [id number] Name: MICHAELA BRANDT Rep #: [id number] : 1940 F 84 From: Jo Rabago MD PCP: Dr. Anaid Santiago MD Status: REG E R Study:Brain/Head without Contrast Date of Exa m: 06/20/25 Exam# [id number] Ordering Dr: Irene Jones DO EXAM: BRAIN/HEAD WITHOUT CONTRAST CLINICAL [...] findings. Chronic findings as described. Reading Location: [facility] CC: Dr. Anaid Santiago MD; Dr. Wesley Jones DO ~ Brake Press Operator: Signed [facility]07-31-2025 Telephone encounter Note* Telephone Encounter - Nickolas Mcelroy RN - 06/18/2025 1:43 PM EDT Called and left a detailed voicemail notifying Brissa from [facility] of providers message. Clinic phone number was left in case she had any questions. Nickolas Mcelroy RN [facility]07-31-2025 Miscellaneous Notes* Telephone Encounter - Nickolas Mcelroy RN - 06/18/2025 1:43 PM EDT Called and left a detailed voicemail notifying Brissa from [facility] of providers message. Clinic phone number was left in case she had any questions. Nickolas Mcelroy RN * Telephone Encounter - Anaid Santiago MD - 06/18/2025 1:35 PM EDT Noted and agree Regards, Anaid Santiago MD * Telephone Encounter - Nickolas Mcelroy RN - 06/17/2025 4:59 PM EDT Brissa from [facility] called in to let provider know that she went out to recertify the Pt. She reports nursing will be seeing the Pt once a week for 6 weeks to monitor a stage 2 ulcer on the L buttock. She states it is 0.3 x 0.3, so it is almost healed. They are just putting Triad cream on it now. Nickolas Mcelroy RN documented in this encounterMet[facility] Telephone encounter Note * Telephone Encounter - Anaid Santiago MD - 06/18/2025 1:35 PM EDT Noted and agree Regards, Anaid Santiago MD [facility]07-30-2025 Telephone encounter Note* Telephone Encounter - Nickolas Mcelroy RN - 06/17/2025 4:59 PM EDT Brissa from [facility] called in to let provider know that she went out to recertify the Pt. She reports nursing will be seeing the Pt once a week for 6 weeks to monitor a stage 2 ulcer on the L buttock. She states it is 0.3 x 0.3, so it is almost healed. They are just putting Triad cream on it now. Nickolas Mcelroy RN [facility]07-16-2025 NoteHNO ID: [id number] Author: ANAID SANTIAGO MD Service: ? Author Type: Physician [...] a month ago, which was treated at [facility]. Michaela expresses reluctance to continue self-catheterization due to the risk of introducing infections and is considering a suprapubic catheter as an alternative. Michaela has not yet undergone an echocardiogram that was previously scheduled. She expresses a desire to reschedule the appointment. Michaela is also experiencing issues with thickened toenails, which are causing discomfort when wearing shoes. She has an appointment with a telephonic rn next month for evaluation and treatment. Michaela [...] of recurrent UTIs, most recently treated at [facility]. Currently self-catheterizing four times daily, which [...] with sleep. - Refill (more content not included)...[facility]07-16-2025 History of Present illness Narrative* Anaid Santiago MD - 06/03/2025 12:25 PM EDT [...] a month ago, which was treated at [facility]. Michaela expresses reluctance to continue self-catheterization due to the risk of introducing infections and is considering a suprapubic catheter as an alternative. Michaela has not yet undergone an echocardiogram that was previously scheduled. She expresses a desire to reschedule the appointment. Michaela is also experiencing issues with thickened toenails, which are causing discomfort when wearingshoes. She has an appointment with a telephonic rn next month for evaluation and treatment. Michaela [...] of recurrent UTIs, most recently treated at [facility]. Currently self-catheterizing four times daily, which [...] excuse any unintended typographical errors. Recording using CreditEase software for draft documentation of the visit was discussed with the patient/authorized senior outside sales representative; all questions welcomed and answered. Patient/authorized senior outside sales representative agreed to proceed Spent more than 40 mins face to face with patient Anaid Santiago MD documented in this encounterMet[facility]07-16-2025 Instructions* Patient Instructions* Anaid Santiago MD - 06/03/2025 12:05 PM EDT [...] This condition requires specialized care from a telephonic rn, as regular nail trimming is not sufficient. - You already have an appointment scheduled with podiatry in June. At that visit, they will assess your nails and provide appropriate treatment. - I documented the findings in your chart to ensure the telephonic rn is aware of the condition and can [...] please contact our office. documented in this encounterMet[facility]07-[facility]-2025 Telephone encounter Note * Telephone Encounter - Mike Guo MA - 05/26/2025 11:28 AM EDT Forms completed and faxed back to # provided: [phone]. Mike Guo MA [facility]07-08-2025 Miscellaneous Notes* Telephone Encounter - Mike Guo MA - 05/26/2025 11:28 AM EDT Forms completed and faxed back to # provided: [phone]. Mike Guo MA * Telephone Encounter - Mike Guo MA - 05/20/2025 5:02 PM EDT Forms given to PCP for review/signature. Mike Guo MA * Telephone Encounter - Jagruti Veliz - 05/20/2025 10:51 AM EDT Patient's daughter dropped off forms that need filled out and faxed to TOBIAS Wolf, att [phone]. Forms given to nurse. Please assist. documented in this encounterMet[facility]07-02-2025 Telephone encounter Note * Telephone Encounter - Mike Guo MA - 05/20/2025 5:02 PM EDT Forms given to PCP for review/signature. Mike Guo MA [facility]07-02-2025 Telephone encounter Note* Telephone Encounter - Jose AlfredoRandy sparksJagruti - 05/20/2025 10:51 AM EDT Patient's daughter dropped off forms that need filled out and faxed to [facility] Enrique, TOBIAS Cueto, att [phone]. Forms given to nurse. Please assist. [facility]06-29-2025 Discharge summary [facility] Medical Records Department [address] [place] [address] Emergency Department Summary 05/17/25 MR#: [id number] Acct: [id number] Name: MICHAELA BRANDT Rep #:[id number] : 1940 84 From: Domingo Darby MD PCP: Dr. Anaid Santiago MD Status:REG E R Location: ED [...] her occupational and physical therapy and some residential. They also have cameras in and keep [...] similar symptoms: Yes Recent Illness/Hospitalization: Yes PFSH PFS Medical History Closed intertrochanteric fracture of left [...] MDM MDM Narrative Medical decision making narrative: [id number] female with dementia lives at home with [...] 78.8 H Lymph % (Auto) 14.1 L Beltrami % (Auto) 5.1 Eos % (Auto) 0.9 Baso % (Auto) 0.6 Absolute Neuts (auto) 6.9 Absolute Lymphs (auto) 1.24 Nucleated RBC % 0 Sodium 142 Potassium 3.9 Chloride 104 Carbon Dioxide 26.5 Anion Gap 12 BUN 15 Creatinine 0.96 Est GFR (MDRD) Non-Af 58 L BUN/Creatinine Ratio 15.6 Glucose 97 Calcium 9.0 Urine Color Yellow Urine Clarity Clear Urine pH 6.0 Ur Specific Dulce 1.020 Urine Protein 30 H Urine Glucose [...] 500 mg PO DAILY Primary Care Provider: Anaid Santiago Referrals: Anaid Santiago MD [Primary Care Provider] - As Needed Activity Restrictions/Additional Instructions: Plenty of fluids and cranberry juice. It appears that she has a UTI. Urine culture was sent. She will be started on antibiotic Keflex 1 pill 4 times a day for 1 week. Follow-up with your doctor if not improving or return if worse. Print Language: Macanese Disposition Disposition: Home, Self Care What to do if you have Problems For any increased pain, shortness of breath, bleeding, nausea or vomiting, chestpain, or any unexpected problems, contact your Primary Care Provider. Call [facility] ([phone]) or report tothe closest Emergency Room. Call 911 if necessary. 05/17/25 1133 Cosigner Signature (if applicable): CC: Dr. Anaid Santiago MD ~ Signed [facility]06-24-2025 Telephone encounter Note* Telephone Encounter - [...] in how pt is taking the lasix. [facility]06-24-2025 Miscellaneous Notes* Telephone Encounter - Michaelle Tai [...] taking the lasix. * Telephone Encounter - Anaid Santiago MD - 05/11/2025 5:08 PM EDT Do not want chest xr just yet Is she taking her lasix as ordered, 2 times a week? RegardsAnaid MD * Telephone Encounter - Michaelle Tai, RN - 05/07/2025 11:08 AM EDT Ivis- Pending sale to [facility] reports pt has fine crackles in the bases of her lungs again. Reports patientdenies Shortness of Breath, and the swelling has decreased. No fever. Otherwise, besides pt's anxiety she feels great. Asking if pcp wants to order a CXR? If pcp wants to order a CXR please fax order to [facility] # [phone] Please advise and phone Ivis with reply: [phone] documented in this encounterMetrohealth [facility]06-23-2025 Telephone encounter Note * Telephone Encounter - Anaid Santiago MD - 05/11/2025 5:08 PM EDT Do not want chest xr just yet Is she taking her lasix as ordered, 2 times a week? RegardsAnaid MD [facility]06-20-2025 Telephone encounter Note* Telephone Encounter - Michaela Davila MA - 05/08/2025 1:22 PM EDT Daughter Osmany notified. [facility]06-20-2025 Miscellaneous Notes* Telephone Encounter - Michaela Davila MA - 05/08/2025 1:22 PM EDT Daughter Osmany notified. * Telephone Encounter - Michaela Davila MA - 05/08/2025 1:18 PM EDT ----- Message from Anaid Santiago MD sent at 05/07/2025 4:44 PM EDT ----- Please let patient know, She does not seem to be in a cardiac failure, her swelling of the legs is likely dependent edema. Iwould encourage her to use compression stockings and to elevate her legs. It would benefit if she takes Lasix once in 3 days for the next couple months. Regards, Anaid Santiago MD documented in this encounterMetro[facility]06-20-2025 Telephone encounter Note * Telephone Encounter - Michaela Davila MA - 05/08/2025 1:18 PM EDT ----- Message from Anaid Santiago MD sent at 05/07/2025 4:44 PM EDT ----- Please let patient know, She does not seem to be in a cardiac failure, her swelling of the legs is likely dependent edema. Iwould encourage her to use compression stockings and to elevate her legs. It would benefit if she takes Lasix once in 3 days for the next couple months. Regards, Anaid Santiago MD [facility]06-19-2025 Telephone encounter Note* Telephone Encounter - Mike Guo MA - 05/07/2025 2:29 PM EDT The following approved medication requests have been transmitted electronically. Requested Prescriptions Signed Prescriptions Disp Refills busPIRone (BUSPAR) 5 mg tablet 60 tablet 3 Sig: Take 1 tablet by mouth two times a day. Authorizing Provider: ANAID SANTIAGO MA [facility]06-19-2025 Miscellaneous Notes* Telephone Encounter - Mike Guo MA - 05/07/2025 2:29 PM EDT The following approved medication requests have been transmitted electronically. Requested Prescriptions Signed Prescriptions Disp Refills busPIRone (BUSPAR) 5 mg tablet 60 tablet 3 Sig: Take 1 tablet by mouth two times a day. Authorizing Provider: ANAID SANTIAGO MA * Telephone Encounter - Anaid Santiago MD - 05/06/2025 7:08 PM EDT I started her on buspar. Regards, Anaid Santiago MD * Telephone Encounter - Kecia Red RN - 05/06/2025 4:50 PM EDT Nickolas PT with [facility] calls to let provider know that patient [...] advise. Kecia Red RN documented in this encounterMetro[facility]06-19-2025 Telephone encounter Note * Telephone Encounter - Michaelle Tai RN - 05/07/2025 11:08 AM EDT Ivis- Pending sale to [facility] reports pt has fine crackles in the bases of her lungs again. Reports patientdenies Shortness of Breath, and the swelling has decreased. No fever. Otherwise, besides pt's anxiety she feels great. Asking if pcp wants to order a CXR? If pcp wants to order a CXR please fax order to [facility] # [phone] Please advise and phone Ivis with reply: [phone] [facility]06-18-2025 Telephone encounter Note* Telephone Encounter - Anaid Santiago MD - 05/06/2025 7:08 PM EDT I started her on buspar. Regards, Anaid Santiago MD [facility]06-18-2025 Telephone encounter Note* Telephone Encounter - Kecia Red RN - 05/06/2025 4:50 PM EDT Nickolas PT with [employer] calls to let provider [...] Please review and advise. Kecia Red, ZACHARIAH [facility]06-18-2025 NoteHNO ID: [id number] Author: ANAID SANTIAGO MD Service: ? Author Type: Physician [...] is currently receiving home care services, including residential, physical therapy, and occupational therapy. She has aides assisting her from [phone] and [phone] daily. Due to financial constraints, the family [...] mg tablet Catheter (SELF-CATHETER, FEMALE) 14 Fr [facility] Health Maintenance DTaP,Tdap,Td Vaccine(1 - Tdap) Bone [...] prolonged self-catheterization. Patient expresses (more content not included)...[facility]06[facility] History of Present illness Narrative* Anaid Santiago MD - 05/06/2025 11:24 AM EDT Reason for Visit Follow up HPI Michaela Brandt is a 84-year-old female, with a history of urinary retention requiring self-catheterization, presenting for follow-up on lower extremity edema and urinary catheter management. She is accompanied by her daughter, who is providing additional history. Michaela is currently receiving home care services, including residential, physical therapy, and occupational therapy. She has aides assisting her from [phone] and [phone] daily. Due to financialconstraints, the family is [...] mentions having a "gentleman friend" who visits [facility] a week. Social History Tobacco Use Smoking [...] mg tablet Catheter (SELF-CATHETER, FEMALE) 14 Fr [facility] Health Maintenance DTaP,Tdap,Td Vaccine(1 - Tdap) Bone [...] of 6 months. - Prescription sent to [facility] pharmacy for 3 months supply. 5. [...] excuse any unintended typographical errors. Recording using CreditEase software for draft documentation of the visit was discussed with the patient/authorized senior outside sales representative; all questions welcomed and answered. Patient/authorized senior outside sales representative agreed to proceed Anaid Santiago MD documented in this encounterMetro[facility]06-16-2025 Telephone encounter Note * Telephone Encounter - Colin Power MA - 05/04/2025 4:11 PM EDT Detailed message on secure voicemail. Colin Power MA May 04, 2025 4:11 PM [facility]06-16-2025 Miscellaneous Notes* Telephone Encounter - Colin Power MA - 05/04/2025 4:11 PM EDT Detailed message on secure voicemail. Colin Power MA May 04, 2025 4:11 PM * Telephone Encounter - Anaid Santiago MD - 05/04/2025 4:00 PM EDT Verbal ok to order all these labs chest x-ray, BNP, CMP, and A1C for patient? Regards, Anaid Santiago MD * Telephone Encounter - Nisha Clayton LPN - 05/04/2025 8:45 AM EDT Brittni with [facility] calls in regards to TE from 04/24: Solange Craig RN MG 04/24/25 11:13 AM Note [facility] calling due to she saw [...] CXR. Nisha Clayton LPN documented in this encounterMet[facility]06-16-[facility]25 Telephone encounter Note * Telephone Encounter - Anaid Santiago MD - 05/04/2025 4:01 PM EDT I dont usually do the catheters and have not done for her. I would like Urology to take care of this Regards, Anaid Santiago MD [facility]06-16-[facility]25 Miscellaneous Notes* Telephone Encounter - Anaid Santiago MD - 05/04/2025 4:01 PM EDT I dont usually do the catheters and have not done for her. I would like Urology to take care of this Regards, Anaid Santiago MD * Telephone Encounter - Devin Crespo LPN - 05/04/2025 9:05 AM EDT Images from the original note were not included. Freddy Baltazar PA-C You3 days ago Yeemeterio I though Silas was doing this VADIM [place], [place], NASIR You Freddy Baltazar PA-C5 days ago KURTIS Hayes, do you want this sent to PCP to address? Patient was seen previously by you you once and was to [facility]. Devin Crespo LPN * Telephone Encounter - Sarah [...] of orders. Please fax to Savanah at [facility] [phone]. JAIRON notes faxed through [employer]. Ophelia Ansari MA documented in this encounterMetrohealth [facility] Center06-16-2025 Telephone encounter Note * Telephone Encounter - Anaid Santiago MD - 05/04/2025 4:00 PM EDT Verbal ok to order all these labs chest x-ray, BNP, CMP, and A1C for patient? Regards, Anaid Santiago MD [facility] Telephone encounter Note* Telephone Encounter - Devin Crespo LPN - 05/04/2025 9:05 AM EDT Images from the original note were not included. Freddy Baltazar PA-C You3 days ago Yeemeterio I though Silas was doing this VADIM [place], [place], [place] You Freddy Baltazar PA-C5 days ago KURTIS aHyes, do you want this sent to PCP to address? Patient was seen previously by you you once and was to [facility]. Devin Crespo LPN [facility] Telephone encounter Note* Telephone Encounter - Nisha Clayton LPN - 05/04/2025 8:45 AM EDT Brittni with [facility] calls in regards to TE from 04/24: Solange Craig RN MG 04/24/25 11:13 AM Note [facility] due to she saw [...] above labs and CXR. Nisha Clayton LPN [facility]06[facility] Telephone encounter Note* Telephone Encounter - Radha Haro LPN - 05/02/2025 9:55 AM EDT Spoke to [facility], Patient just picked up Celexa 20mg RX yesterday, 05/01/2025, she has refills remaining. Radha Haro LPN [facility]06-14-[facility] Miscellaneous Notes* Telephone Encounter - Radha Haro LPN - 05/02/2025 9:55 AM EDT Spoke to [facility], Patient just picked up Celexa 20mg RX yesterday, 05/01/2025, she has refills remaining. Radha Haro LPN documented in this encounterMetrohealth [facility] Center06-13-2025 Telephone encounter Note * Telephone Encounter - Lawrence Salinas APRN.INSIGHT DIRECTOR - 05/01/2025 4:36 PM EDT PDMP website checked and validated. All prescriptions have been APPROPRIATELY filled. No suspiciousactivity was identified. 05/01/2025 by Lawrence Salinas APRN.INSIGHT DIRECTOR [facility]06-13-[facility]25 Miscellaneous Notes* Telephone Encounter - Lawrence Salinas APRN.CNP - 05/01/2025 4:36 PM EDT PDMP website checked and validated. All prescriptions have been APPROPRIATELY filled. No suspiciousactivity was identified. 05/01/2025 by Lawrence Salinas APRN.CNP * Telephone Encounter - Marisol Tomlinson [...] you. Marisol Tomlinson MA. documented in this encounterMetrohealth [facility] Center06-13-2025 Telephone encounter Note * Telephone Encounter - [...] Please advise. Thank you. Marisol Tomlinson MA. [facility] Telephone encounter Note* Telephone Encounter - Sarah Donahue RN - 04/27/2025 4:18 PM EDT JAIRON 12/23/24 [facility]06-[facility] Telephone encounter Note* Telephone Encounter - Ophelia [...] of orders. Please fax to Savanah at [employer] [facility] [phone]. JAIRON notes faxed through [employer]. Ophelia Ansari MA [facility]06-06-[facility] Telephone encounter Note* Telephone Encounter - Nickolas Mcelroy RN - 04/24/2025 4:02 PM EDT Pts daughter called in and was asking about if she should take her mother to [facility] ER or a [facility] ER. She states since she is affiliated with [facility] would it be in her best interest to just go to the [facility]. I told her that is up to her, but the closest one would be [place], [facility], or [place]. She said ifthey went to [facility] they could always get her transfer to a [facility] facility. I told her it really dependson what they find when they do blood work when she get there. She said she would talk it over with her . Nickolas Mcelroy RN [facility]06-06-[facility] Miscellaneous Notes* Telephone Encounter - Nickolas Mcelroy RN - 04/24/2025 4:02 PM EDT Pts daughter called in and was asking about if she should take her mother to [facility] ER or a [facility] ER. She states since she is affiliated with [facility] would it be in her best interest to just go to the [facility]. I told her that is up to her, but the closest one would be [facility], [facility], or [place]. She said jay went to [facility] they could always get her transfer to a [facility] facility. I told her it really dependson what they find when they do blood work when she get there. She said she would talk it over with her . Nickolas Mcelroy RN * Telephone Encounter - Porsha Vasquez RN - 04/24/2025 2:42 PM EDT Patient's daughter Osmany Shin calling regarding patient. Expresses concern that [...] - 04/24/2025 11:10 AM EDT [facility] due to she saw [...] called back with information. documented in this encounterMetrohealth [facility] Center06-06-2025 Telephone encounter Note * Telephone Encounter - Porsha Vasquez RN - 04/24/2025 2:42 PM EDT Patient's daughter Osmany Shin calling regarding patient. Expresses concern that [...] all sx's. Daughter agreeable. Porsha Vasquez RN [facility]06-06-[facility] Telephone encounter Note* Telephone Encounter - Mike Guo MA - 04/24/2025 1:33 PM EDT Patient active MyChart. Patient notified via [employer] message. Mike Guo MA [facility]06-06-[facility]25 Miscellaneous Notes* Telephone Encounter - Mike Guo MA - 04/24/2025 1:33 PM EDT Patient active MyChart. Patient notified via [employer] message. Mike Guo MA * Telephone Encounter - Anaid Santiago MD - 04/24/2025 11:23 AM EDT Ordered as requested Regards, Anaid Santiago MD documented in this encounterMetrohealth [facility] Center06-06-2025 Telephone encounter Note * Telephone Encounter - Anaid Santiago MD - 04/24/2025 11:23 AM EDT Ordered as requested Regards, Anaid Santiago MD [facility]06-06-[facility] Telephone encounter Note* Telephone Encounter - Solange Craig RN - 04/24/2025 11:10 AM EDT [facility] due to she saw [...] advise, nurse needs called back with information. [facility]06-[facility] Telephone encounter Note* Telephone Encounter - Deshawn Lombardo LPN - 04/22/2025 9:42 AM EDT Called and spoke to patients jossie Stahl, will forward message to Home health Deshawn Lombardo LPN April 22, 2025 9:42 AM [facility]-04-[facility] Miscellaneous Notes* Telephone Encounter - Deshawn Lombardo LPN - 04/22/2025 9:42 AM EDT Called and spoke to patients jossie Stahl, will forward message to Home health Deshawn Lombardo LPN April 22, 2025 9:42 AM * Telephone Encounter - Anaid Santiago MD - 04/21/2025 5:23 PM EDT Would consider Compression stockings to be put on her and lifting her legs If that does not work we can give her a little lasix. RegardsAnaid MD * Telephone Encounter - Nisha Clayton [...] painful. Nisha Clayton LPN documented in this encounterMetrohealth [facility] Center06-03-2025 Telephone encounter Note * Telephone Encounter - Anaid Santiago MD - 04/21/2025 5:23 PM EDT Would consider Compression stockings to be put on her and lifting her legs If that does not work we can give her a little lasix. Regards, Anaid Santiago MD [facility]06-[facility] Telephone encounter Note* Telephone Encounter - Nisha [...] but foot isnot painful. Nisha Clayton LPN [facility]06-02-2025 Telephone encounter Note* Telephone Encounter - Nickolas Mcelroy RN - 04/20/2025 6:39 PM EDT See TE from 04/20/25 My CAO with [facility] was going to have updated medication list faxed overto provider office. Nickolas Mcelroy RN [facility]06-[facility]25 Miscellaneous Notes* Telephone Encounter - Nickolas Mcelroy RN - 04/20/2025 6:39 PM EDT See TE from 04/20/25 My CAO with [facility] was going to have updated medication list faxed overto provider office. Nickolas Mcelroy RN * Telephone Encounter - Mike Guo MA - 04/17/2025 11:43 AM EDT TC to nurse at [facility] to obtain current med list. Unable to reach. Left detailed message for nurse to [facility]. PCP office needs updated med list. Mike Guo MA documented in this encounterMetrohealth [facility] Center06-02-2025 Telephone encounter Note * Telephone Encounter - Nickolas Mcelroy RN - 04/20/2025 6:38 PM EDT Called and left a detailed voicemail notifying My CAO with [facility] of providers message. Clinic phone number was left in case she had any questions. Nickolas Mcelroy RN [facility]06-[facility] Miscellaneous Notes* Telephone Encounter - Nickolas Mcelroy RN - 04/20/2025 6:38 PM EDT Called and left a detailed voicemail notifying My with [facility] of providers message. Clinic phone number was left in case she had any questions. Nickolas Mcelroy RN * Telephone Encounter - Anaid Santiago MD - 04/20/2025 5:39 PM EDT Verbal ok for the same Regards, Anaid Santiago MD * Telephone Encounter - Nickolas Mcelroy RN - 04/20/2025 5:11 PM EDT My with [facility] called and is notified of providers message. She voices understanding and reports that yes she does need the orders for the 16 polish indwelling lizarraga. She states she can take a verbal order for that and we can leave a VM as her line is secure. She is also going to have her office fax over an [facility] when she is done with her note. Nickolas Mcelroy RN * Telephone Encounter - Anaid Santiago MD - 04/20/2025 4:54 PM EDT Agree Does she need orders for the 16 polish indwelling lizarraga? Thanks Regards, Anaid Santiago MD * Telephone Encounter - Josy Saucedo RN - 04/20/2025 4:03 PM EDT Call received from My, nurse at [facility], regarding orders for Pt (see below notation). [facility] nurse observed Pt self-cath, and she was not cleansing herself well. Pt's daughter is voicing concern about Pt's inability to do this at home. [facility] is requesting order for chronic indwelling lizarraga cathether, 16F. Last OV with urology - Freddy Baltazar PA-C: [facility] office phone: Fax number for orders: Josy Saucedo RN April 20, 2025 4:07 PM * Telephone Encounter - Katie Langston LPN - 04/20/2025 3:35 PM EDT My calling back she will fax list from the SNF and will have to update med list with her admission notes to [facility] and fax that when she is able. * Telephone Encounter - Nickolas Mcelroy RN - 04/20/2025 3:14 PM EDT Called and left a message for My CAO with [facility] that if she has an updated medication list [facility] if she could fax that to Dr Santiago at [phone]. Nickolas Mcelroy RN * Telephone Encounter - Nickolas Mcelroy RN - 04/20/2025 2:50 PM EDT [...] that [facility] a lizarraga catheter in, and [...] depending on soilage. Please call and advise. Nickolas Mcelroy, ZACHARIAH documented in this encounterMetrohealth [facility] Center06-02-2025 Telephone encounter Note * Telephone Encounter - Anaid Santiago MD - 04/20/2025 5:39 PM EDT Verbal ok for the same Regards, Anaid Santiago MD [facility]06-02-[facility] Telephone encounter Note* Telephone Encounter - Nickolas Mcelroy RN - 04/20/2025 5:11 PM EDT My CAO with [facility] called and is notified of providers message. She voices understanding and reports that yes she does need the orders for the 16 polish indwelling lizarraga. She states she can take a verbal order for that and we can leave a VM as her line is secure. She is also going to have her office fax over an updated medication [facility] when she is done with her note. Nickolas Mcelroy, RN [facility]06-02[facility] Telephone encounter Note* Telephone Encounter - Anaid Santiago MD - 04/20/2025 4:54 PM EDT Agree Does she need orders for the 16 polish indwelling lizarraga? Thanks Regards, Anaid Santiago MD [facility]06-02-[facility] Telephone encounter Note* Telephone Encounter - Josy Saucedo RN - 04/20/2025 4:03 PM EDT Call received from My nurse at [facility], regarding orders for Pt (see below notation). [facility] nurse observed Pt self-cath, and she was not cleansing herself well. Pt's daughter is voicing concern about Pt's inability to do this at home. [facility] is requesting order for chronic indwelling lizarraga cathether, 16F. Last OV with urology - Freddy Baltazar PA-C: 12/23/2024 My [facility] nurse phone: [facility] office phone: Fax number for orders: Josy Saucedo RN April 20, 2025 4:07 PM [facility] Telephone encounter Note* Telephone Encounter - Katie Langston LPN - 04/20/2025 3:35 PM EDT My calling back she will fax list from the SNF and will have to update med list with her admission notes to [facility] and fax that when she is able. [facility]06-[facility] Telephone encounter Note* Telephone Encounter - Nickolas Mcelroy RN - 04/20/2025 3:14 PM EDT Called and left a message for My with [facility] that if she has an updated medication list from [facility] if she could fax that to Dr Santiago at [phone]. Nickolas Mcelroy RN [facility]06-[facility] Telephone encounter Note* Telephone Encounter - Nickolas Mcelroy RN - 04/20/2025 2:50 PM EDT [...] that [facility] she [facility] a lizarraga catheter in, and [...] depending on soilage. Please call and advise. Nickolas Mcelroy, RN [facility]05-30-[facility] Telephone encounter Note* Telephone Encounter - Anaid Santiago MD - 04/17/2025 5:33 PM EDT We discussed about letter and she said she will message me when needed Regards, Anaid Santiago MD [facility]05-30-[facility] Miscellaneous Notes* Telephone Encounter - Anaid Santiago MD - 04/17/2025 5:33 PM EDT We discussed about letter and she said she will message me when needed Regards, Anaid Santiago MD * Telephone Encounter - Renate Montgomery MSW - 04/17/2025 3:00 PM EDT Sw spoke with patient daughter in regards to Home Health questions and also current housing AL options. Osmany and Thomas discussed that [facility] looks to be an option for home healthcare. Sw left message for [facility] referral line to call this Sw back to confirm if they will be serving patient home healthcare needs. Osmany notes that [facility] will be providing home ostomy care nurse next week when patient stays at her apt. Osmany notes that patient will then be coming [facility] Osmany notes that she is working on getting bedroom ready at there home for patient to come and stay with he. There is a wait list at [facility]. Sw will let patient daughter know what she finds out from [facility] . Osmany also mentioned a letter for her mom's current [employer] apt, to see about being released from her housing there. Thomas noted that she would send message to Dr. Santiago to see what she says about letter. * Telephone Encounter - Renate Montgomery MSW - 04/17/2025 1:49 PM EDT Sw tried call to patient daughter and vmail is full, unable to leave message. Sw will try call another time. * Telephone Encounter - Renate Montgomery MSW - 04/17/2025 12:57 PM EDT This Sw received consult and will work on reaching out to patient daughter to discuss social service needs. This Sw also notes that there is a message from today from [employer] [facility] noting orders for SN,PT,OT. It looks like Dr. Santiago agreed to [employer] seeing patient. documented in this encounterMetrohealth [facility] Center05-30-2025 Telephone encounter Note * Telephone Encounter - Renate Montgomery MSW - 04/17/2025 3:00 PM EDT Sw spoke with patient daughter in regards to Home Health questions and also current housing AL options. Osmany and Thomas discussed that [employer] looks to be an option for home healthcare. Thomas left message for [facility] referral line to call this Sw back to confirm if they will be serving patient home healthcare needs. Osmany notes that [facility] will be providing home ostomy care nurse next week when patient stays at her apt. Osmany notes that patient will then be coming to stay with her,[facility] Osmany notes that she is working on getting bedroom ready at there home for patient to come and stay with he. There is a wait list at [facility]. Thomas will let patient daughter know what she finds out from [facility]. Osmany also mentioned a letter for her mom's current [employer] apt, to see about being released from her housing there. Thomas noted that she would send message to Dr. Santiago to see what she says about letter. [facility] Telephone encounter Note* Telephone Encounter - Renate Montgomery MSW - 04/17/2025 1:49 PM EDT Sw tried call to patient daughter and vmail is full, unable to leave message. Sw will try call another time. [facility]05-30-[facility]25 NoteHNO ID: [id number] Author: ANAID SANTIAGO MD Service: ? Author Type: Physician [...] until 03/04, followed by a stay at [facility] beginning on 03/19. Michaela is scheduled to be discharged from [facility] on Sunday. Her daughter has arranged for [...] and balance issues. - Referral sent to [facility] for PT and OT. 2. 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 Healing is delayed, contributing to mobility issues. - Monitor healing progress through follow-up appointments. - Co (more content not included)...[facility] Telephone encounter Note* Telephone Encounter - Renate Montgomery MSW - 04/17/2025 12:57 PM EDT This Sw received consult and will work on reaching out to patient daughter to discuss social service needs. This Sw also notes that there is a message from today from [facility] noting orders for SN,PT,OT. It looks like Dr. Santiago agreed to [facility] seeing patient. [facility] History of Present illness Narrative* Anaid Santiago MD - 04/17/2025 12:57 PM EDT [...] until 03/04, followed by a stay at [facility] beginning on 03/19. Michaela is scheduled to be discharged from [facility] on Sunday. Her daughter has arranged for [...] and balance issues. - Referral sent to [facility] for PT and OT. [...] to be stage 2 ulcer - Ordered residential for wound care management. - Utilize hypochlorous [...] excuse any unintended typographical errors. Recording using [employer] software for draft documentation of the visit was discussed with the patient/authorized senior outside sales representative; all questions welcomed and answered. Patient/authorized senior outside sales representative agreed to proceed Anaid Santiago MD documented in this encounterMetrohealth [facility] Center05-30-2025 Instructions* Patient Instructions* Anaid Santiago MD - 04/17/2025 12:47 PM EDT [...] is a positive sign for healing. - senior living will be arranged to clean and care [...] you have experienced in the past. - senior living will assist with catheter care, including monthly [...] These were helpful during your stay at [facility]. - Mental Health: - You are [...] are awaiting an updated medication list from [facility] to confirm all current prescriptions and dosages. - Living Arrangements: - Your daughter is exploring assisted living options for you, including a facility in [facility]. This will require private pay [...] - A referral has been sent to [facility] for residential, PT, andOT. They will also assess your eligibility for additional home health aide services. - Your bobjaxon is working with Renate and other resources to explore options for [...] support your care needs. Next Steps: - senior living, PT, and OT will be arranged through [...] or any other concerns. documented in this encounterMetrohealth [facility]05-30-2025 Telephone encounter Note * Telephone Encounter - Mike Guo MA - 04/17/2025 11:43 AM EDT TC to nurse at [facility] to obtain current med list. Unable to reach. Left detailed message for nurse to [facility]. PCP office needs updated med list. Mike Guo MA [facility] Telephone encounter Note* Telephone Encounter - Nickolas Mcelroy RN - 04/17/2025 10:54 AM EDT Wes with [facility] called and is notified of providers message. She voices understanding. Nickolas Mcelroy RN [facility]-30-2025 Miscellaneous Notes* Telephone Encounter - Nickolas Mcelroy RN - 04/17/2025 10:54 AM EDT Wes with [facility] called and is notified of providers message. She voices understanding. Nickolas Mcelroy RN * Telephone Encounter - Anaid Santiago MD - 04/17/2025 10:43 AM EDT Will follow Anaid Patel MD * Telephone Encounter - Nickolas Mcelroy RN - 04/17/2025 10:02 AM EDT Wes with [facility] called in and reports they received a referral for SN/PT/OT. She is asking if provider will fallow. Please call back. Nickolas Mcelroy RN documented in this encounterMetrohealth [facility] Center05-30-2025 Telephone encounter Note * Telephone Encounter - Anaid Santiago MD - 04/17/2025 10:43 AM EDT Will follow Anaid Patel MD [facility] Telephone encounter Note* Telephone Encounter - Nickolas Mcelroy RN - 04/17/2025 10:02 AM EDT Wes with [facility] called in and reports they received a referral for SN/PT/OT. She is asking if provider will fallow. Please call back. Nickolas Mcelroy RN [facility]05-01-[facility]25 Telephone encounter Note* Telephone Encounter - Anaid Santiago MD - 03/19/2025 4:55 PM EDT Thanks and noted Regards, Anaid Santiago MD [facility]05-01-2025 Miscellaneous Notes* Telephone Encounter - Anaid Santiago MD - 03/19/2025 4:55 PM EDT Thanks and noted Regards, Anaid Santiago MD * Telephone Encounter - Deshawn Lombardo LPN - 03/19/2025 4:00 PM EDT Canceled appointment for tomorrow per patients daughter request. Deshawn Lombardo LPN March 19, 2025 4:00 PM * Telephone Encounter - Renate Montgomery MSW - 03/19/2025 3:28 PM EDT Thomas spoke with patient daughter Osmany. Osmany notes that patient is currently at [facility] right now. Transitioned there today. Osmany notes that she needs to cancel patient appt with Dr. Santiago tomorrow. Thomas notes that she will send message to Dr. Santiago regarding this need. Osmany also noted that she is going to send My Chart message as well in regards to cancelling appt. Osmany notes that the hospital had encouraged patient to go to [facility] Daughter is trying to get with admissions at [facility] in regards to them saying that she is going there for 30 days and being placed in LTC and not Rehab. Daughter also notes that she has an appt next week with Software Maintenance Engineer for financial planning. Osmany also noted that she would like patient to see Dr. Santiago if and when she leaves [place]. While in [place], patient will be followed by their provider. Thomas did encourage patient daughter to also reach out to [facility] and [facility] for further support guidance regarding LTC planning. Thomas will forward note to Dr. Santiago and her office in regards to appt cancellation need for tomorrow. [facility] encounter Note * Telephone Encounter - Deshawn Lombardo LPN - 03/19/2025 4:00 PM EDT Canceled appointment for tomorrow per patients daughter request. Deshawn Lombardo LPN March 19, 2025 4:00 PM [facility]05-01[facility] Telephone encounter Note* Telephone Encounter - Renate Montgomery MSW - 03/19/2025 3:28 PM EDT Thomas spoke with patient daughter Osmany. Osmany notes that patient is currently at [facility] right now. Transitioned there today. Osmany notes that she needs to cancel patient appt with Dr. Santiago tomorrow. Thomas notes that she will send message to Dr. Santiago regarding this need. Osmany also noted that she is going to send My Chart message as well in regards to cancelling appt. Osmany notes that the hospital Sw had encouraged patient to go to [facility] for further care after being in [facility]. Daughter is trying to get with admissions at [facility] in regards to them saying that she is going there for 30 days and being placed in LTC and not Rehab. Daughter also notes that she has an appt next week with Software Maintenance Engineer for financial planning. Osmany also noted that she would like patient to see Dr. Santiago if and when she leaves [place]. While in [place], patient will be followed by their provider. Thomas did encourage patient daughter to also reach out to [facility] and [facility] for further support guidance regarding LTC planning. Thomas will forward note to Dr. Santiago and her office in regards to appt cancellation need for tomorrow. [facility]04-28-2025 [facility]04-16-2025 [facility]04-16-2025 Consult note [facility] Medical Records Department [address] [place] [address] Anesthesia Postop Eval II 03/03/25 0905 MR#: [id number] Acct: [id number] Name: MICHAELA BRANDT Rep #:[id number] : 1940 84 From: Jim Vidales MD PCP: Dr. Anaid Santiago MD Status:ADM I N Y Race: C Location: [place] 816502 -1 Anesthesia Postop Eval I Sum Postop Eval Completion status Anesthesia document: Postop Eval 1 completed: Yes Anesthesia Postop Eval I Summary Anesthesia Postop Eval I Summary: Anesthesia Postop Eval I: Assessment Summary Airway patent Yes 03/02/25 13:00 LEAN SIX SIGMA SENIOR SPECIALIST.JDEF Spontaneous unlabored Yes 03/02/25 13:00 LEAN SIX SIGMA SENIOR SPECIALIST.JDEF respirations Mental status Asleep 03/02/25 13:00 LEAN SIX SIGMA SENIOR SPECIALIST.JDEF nausea No 03/02/25 13:00 LEAN SIX SIGMA SENIOR SPECIALIST.JDEF Vomiting No 03/02/25 13:00 LEAN SIX SIGMA SENIOR SPECIALIST.JDEF Anesthesia Postop Eval I: Fluid Summary Crystalloid volume administer 600 03/02/25 13:00 LEAN SIX SIGMA SENIOR SPECIALIST.JDEF (ml) Colloids volume administered ( ml) Blood Product volume administered (ml) Total IV fluid infused 600 03/02/25 13:00 LEAN SIX SIGMA SENIOR SPECIALIST.JDEF Anesthesia Postop Eval I: Summary Notes Anesthesia Complication No 03/02/25 13:00 LEAN SIX SIGMA SENIOR SPECIALIST.JDEF Anesthesia Complication Comment: Post-operative progress note Anesthesia: Postop Eval II Evaluation Mental status: Awake and Calm Pain Level: 2 nausea: No Vomiting: No Complications Anesthesia Complication: No 03/03/25 0905 javier DELACRUZ> Date _ Jim Vidales MD Cosigner Signature: Date CC: ~ Signed [facility]04-16-2025 Discharge summary Author Allison [facility] Note Date/Time March 04, 2025 12: 22pm [facility] Medical Records Department [address] [place], [place] [address] [place] [address] Transfer to [facility] MR#: [id number] Acct: [id number] Name: MICHAELA BRANDT Rep #:[id number] : 1940 84 From: Allison Tran MD PCP: Dr. Anaid Santiago MD Status:ADM I N Certification of patient admission REQUIRED AT TIME OF ADMISSION. I CERTIFY THAT POST-HOSPITAL F SERVICES ARE REQUIRED TO BE GIVEN ON AN IN-PATIENT BASIS BECAUSE OF THE ABOVE NAMED PATIENT'S NEED FOR FPC CARE ON A CONTINUING BASIS FOR THE CONDITION(S) FOR WHICH HE/SHE WAS RECEIVING IN-PATIENT HOSPITAL SERVICES PRIOR TO HIS/HER TRANSFER TO THE [facility]. 03/04/25 1222<Electronically signed by Allison Tran MD> [...] Attending Provider: Allison Tran Primary Care Provider: Anaid Santiago Consulting Providers: Boston Rosas; Roro Long [...] mg PO DAILY Referrals / Follow Up: Anaid Santiago MD [Primary Care Provider] - Within 1 Week Boston Rosas DO [Med Staff - Active Staff] - Within 2 Weeks Disposition Disposition (needs filled in before D/C Order can be placed): Fpc Facility 03/04/25 1222 <Electronically signed by Allison Tran MD> Cosigner Signature (if applicable): CC: Dr. Anaid Santiago MD; Dr. Roro Long DO; Dr. Boston Rosas DO ~ [facility] Work Phone: 1(620) 145-617304-16-2025 Discharge summary [facility] Medical Records Department [address] [place] [address] Transfer to [facility] MR#: [id number] Acct: [id number] Name: MICHAELA BRANDT Rep #:[id number] : 1940 84 From: Allison Tran MD PCP: Dr. Anaid Santiago MD Status:ADM I N Certification of patient admission REQUIRED AT TIME OF ADMISSION. I CERTIFY THAT POST-HOSPITAL ECF SERVICES ARE REQUIRED TO BE GIVEN ON AN IN-PATIENT BASIS BECAUSE OF THE ABOVE NAMED PATIENT'S NEED FOR FPC CARE ON A CONTINUING BASIS FOR THE CONDITION(S) FOR WHICH HE/SHE WAS RECEIVING IN-PATIENT HOSPITAL SERVICES PRIOR TO HIS/HER TRANSFER TO THE [facility]. 03/04/25 1222 Diet Diet Order/Speech Therapy: 03/02/25 [...] Attending Provider: Allison Tran Primary Care Provider: Anaid Santiago Consulting Providers: Boston Rosas; Roro Long [...] mg PO DAILY Referrals / Follow Up: Anaid Santiago MD [Primary Care Provider] - Within 1 Week Boston Rosas DO [Med Staff - Active Staff] - Within 2 Weeks Disposition Disposition (needs filled in before D/C Order can be placed): Fpc Facility 03/04/25 1222 Cosigner Signature (if applicable): CC: Dr. Anaid Santiago MD; Dr. Roro Long DO; Dr. Boston Rosas, DO ~ [facility]04-16-2025 [facility]04-15-2025 Progress note Author Josy Parks [facility] Note Date/Time March 03, 2025 5:1 6pm [facility] Medical Records Department [address] [place] [address] Progress Note - Orthopedic 03/03/25 1316 MR#: [id number] Acct: [id number] Name: MICHAELA BRANDT Rep #:[id number] : 1940 84 From: Josy HOUSE PCP: Dr. Anaid Santiago MD Status:ADM I N Location: [place] [address] Subjective Subjective Patient is lying comfortably in [...] 74.6 H, Lymph % (Auto) 12.6 L, Beltrami % (Auto) 9.6, Eos % (Auto) 1.9, [...] evidence of fracture or loosening. Reading Location: [facility] Physical Exam Narrative 1. MEJIA hose [...] orthopedic with any concerns or questions 03/03/25 0359 <Electronically signed by Josy HOUSE> Cosigner Signature (if applicable): CC: ~ Signed [facility] Work Phone: 1(236) 201-992704-15-2025 Progress note [facility] Medical Records Department [address] [place] [address] Progress Note - Orthopedic 03/03/25 1316 MR#: [id number] Acct: [id number] Name: MICHAELA BRANDT Rep #:[id number] : 1940 84 From: Josy HOUSE PCP: Dr. Anaid Santiago MD Status:ADM I N Location: MS3 NE817-5 Subjective Subjective Patient is lying comfortably in [...] 74.6 H, Lymph % (Auto) 12.6 L, Beltrami % (Auto) 9.6, Eos % (Auto) 1.9, [...] evidence of fracture or loosening. Reading Location: [id number] Physical Exam Narrative 1. MEJIA hose in [...] Cosigner Signature (if applicable): CC: ~ Signed [facility]04-15-2025 Progress note Author Allison [facility] Note Date/Time March 03, 2025 3:1 1pm [facility] Medical Records Department [address] [place] [address] Progress Note 03/03/25 1459 MR#: [id number] Acct: [id number] Name: MICHAELA BRANDT Rep #:[id number] : 1940 84 From: Allison Tran MD PCP: Dr. Anaid Santiago MD Status:ADM I N Location: [place] [address]-1 Subjective Subjective Patient seen and examined. Her [...] 74.6 H, Lymph % (Auto) 12.6 L, Beltrami % (Auto) 9.6, Eos % (Auto) 1.9, [...] evidence of fracture or loosening. Reading Location: [id number] Physical Exam Const alert, oriented x3, no [...] precert. * Charges/Coding Visit Charges Inpatient E&M: 89334 Subs Hosp L2 03/03/25 1511 <Electronically signed by Allison Tran MD> Allison Tran MD Cosigner Signature (if applicable): CC: ~ Signed [facility] Work Phone: 1(788) 352-117504-15-2025 [facility] Department [address] [place] [address] Progress Note 03/03/25 1459 MR#: [id number] Acct: [id number] Name: MICHAELA BRANDT Rep #:[id number] : 1940 84 From: Allison Tran MD PCP: Dr. Anaid Santiago MD Status:ADM I N Location: [place] [address]-1 Subjective Subjective Patient seen and examined. Her [...] 74.6 H, Lymph % (Auto) 12.6 L, Beltrami % (Auto) 9.6, Eos % (Auto) 1.9, [...] evidence of fracture or loosening. Reading Location: [facility] Physical Exam Const alert, oriented x3, [...] precert. * Charges/Coding Visit Charges Inpatient E&M: 20793 Subs Hosp L2 03/03/25 1511 Allison Tran MD Cosigner Signature (if applicable): CC: ~ Signed [facility]04-15-2025 Consult note Author Jim Vidales [facility] Note Date/Time March 04, 2025 2:5 7pm [facility] Medical Records Department [address] [place] [address] Anesthesia Postop Eval II 03/03/25 0905 MR#: [id number] Acct: [id number] Name: MICHAELA BRANDT Rep #:[id number] : 1940 84 From: Jim Vidales MD PCP: Dr. Anaid Santiago MD Status:ADM I N Y Race: C Location: [place] [address] Anesthesia Postop Eval I Sum Postop Eval Completion status Anesthesia document: Postop Eval 1 completed: Yes Anesthesia Postop Eval I Summary Anesthesia Postop Eval I Summary: Anesthesia Postop Eval I: Assessment Summary Airway patent Yes 03/02/25 13:00 LEAN SIX SIGMA SENIOR SPECIALIST.JDEF Spontaneous unlabored Yes 03/02/25 13:00 LEAN SIX SIGMA SENIOR SPECIALIST.JDEF respirations Mental status Asleep 03/02/25 13:00 LEAN SIX SIGMA SENIOR SPECIALIST.JDEF nausea No 03/02/25 13:00 LEAN SIX SIGMA SENIOR SPECIALIST.JDEF Vomiting No 03/02/25 13:00 LEAN SIX SIGMA SENIOR SPECIALIST.JDEF Anesthesia Postop Eval I: Fluid Summary Crystalloid volume administer 600 03/02/25 13:00 LEAN SIX SIGMA SENIOR SPECIALIST.JDEF (ml) Colloids volume administered ( ml) Blood Product volume administered (ml) Total IV fluid infused 600 03/02/25 13:00 LEAN SIX SIGMA SENIOR SPECIALIST.JDEF Anesthesia Postop Eval I: Summary Notes Anesthesia Complication No 03/02/25 13:00 LEAN SIX SIGMA SENIOR SPECIALIST.JDEF Anesthesia Complication Comment: Post-operative progress note Anesthesia: Postop Eval II Evaluation Mental status: Awake and Calm Pain Level: 2 nausea: No Vomiting: No Complications Anesthesia Complication: No 03/03/25904 <Electronically signed by Jim herrera MD> Date _ Jim Vidales MD Cosigner Signature: Date CC: ~ Signed [facility] Work Phone: 1(221) 322-349704-14-2025 Progress note Author Allison [facility] Note Date/Time March 02, 2025 3:5 0pm [facility] Medical Records Department [address] [place] [address] Progress Note 03/02/25 1133 MR#: [id number] Acct: [id number] Name: MICHAELA BRANDT Rep #:[id number] : 1940 84 From: Allison Tran MD PCP: Dr. Anaid Santiago MD Status:ADM I N Location: [place] [address] Subjective Subjective Patient seen and examined. Her [...] 11:09 03/02/25 11:09 03/02/25 11:09 03/02/25 11:03/02/25 11:09 03/02/25 07:36 Oxygen Delivery Method [...] 92.1 H, Lymph % (Auto) 3.3 L, Beltrami % (Auto) 3.8, Eos % (Auto) 0.0, [...] (Auto) 76.7 H, Lymph % (Auto) 11.6L, Beltrami % (Auto) 9.5, Eos % (Auto) 0.9, [...] fracture of the left femur. Reading Location: [facility] Knee X-Ray 03/01/25 11:41 IMPRESSION: Acute fracture of the left lateral femoral condyle. Reading Location: [facility] Brain CT 03/01/25 12:42 IMPRESSION: 1. No acute intracranial finding. 2. Findings of chronic microvascular ischemic changes and age-related changes. Reading Location: [facility] Lower Extremity CT 03/01/25 12:42 IMPRESSION: No acute osseous fracture. The previously visualized osseous fragment along the distal lateral left femoral condyle is secondary to diffuse bone lucency and probable nutrient channel. Reading Location: [facility] Chest X-Ray 03/01/25 13:59 IMPRESSION: Emphysema/fibrosis. No acute findings. Reading Location: [facility] Physical Exam Const alert, oriented x3, [...] intubation * Charges/Coding Visit Charges Inpatient E&M: 15206 Subs Hosp L2 03/02/25 1550 <Electronically signed by Allison Tran MD> Allison Tran MD Cosigner Signature (if applicable): CC: ~ Signed [facility] Work Phone: 1(129) 497-250104-14-2025 Progress note [facility] Medical Records Department [address] [place] [address] Progress Note 03/02/25 1133 MR#: [id number] Acct: [id number] Name: MICHAELA BRANDT Rep #:[id number] : 1940 84 From: Allison Tran MD PCP: Dr. Anaid Santiago MD Status:ADM I N Location: [place] [address]-1 Subjective Subjective Patient seen and examined. Her [...] 92.1 H, Lymph % (Auto) 3.3 L, Beltrami % (Auto) 3.8, Eos % (Auto) 0.0, [...] (Auto) 76.7 H, Lymph % (Auto) 11.6L, Beltrami % (Auto) 9.5, Eos % (Auto) 0.9, [...] fracture of the left femur. Reading Location: [facility] Knee X-Ray 03/01/25 11:41 IMPRESSION: Acute fracture of the left lateral femoral condyle. Reading Location: [facility] Brain CT 03/01/25 12:42 IMPRESSION: 1. No acute intracranial finding. 2. Findings of chronic microvascular ischemic changes and age-related changes. Reading Location: [facility] Lower Extremity CT 03/01/25 12:42 IMPRESSION: No acute osseous fracture. The previously visualized osseous fragment along the distal lateral leftfemoral condyle is secondary to diffuse bone lucency and probable nutrient channel. Reading Location: [facility] Chest X-Ray 03/01/25 13:59 IMPRESSION: Emphysema/fibrosis. No acute findings. Reading Location: [facility] Physical Exam Const alert, oriented x3, [...] intubation * Charges/Coding Visit Charges Inpatient E&M: 46360 Subs Hosp L2 03/02/25 1550 Allison Tran MD Cosigner Signature (if applicable): CC: ~ Signed [facility]04-14-2025 Radiology Diagnostic study note [facility] Imaging Services [address] [place] [address] Hip Min 2 Views (Portable) MR#: [id number] Acct: [id number] Name: MICHAELA BRANDT Rep #: [id number] : 1940 F 84 From: Jose Gayle DO PCP: Dr. Anaid Santiago MD Status: ADM I N Study:Hip Min 2 Views (Portable) Date of Exam : 03/02/25 Exam# [id number] Ordering Dr: James Overton MD PROCEDURE: HIP [...] evidence of fracture or loosening. Reading Location: [id number] CC: Dr. Anaid Santiago MD; Dr. Elijah Overton MD ~ Brake Press Operator: Signed [facility]04-14-2025 Consult note Author Joanna Delgado [facility] Note Date/Time March 02, 2025 1:0 0pm [facility] Medical Records Department [address] [place] [address] Anesthesia Postop Eval I 03/02/25 1259 MR#: [id number] Acct: [id number] Name: MICHAELA BRANDT Rep #:[id number] : 1940 84 From: Joanna Delgado CRNA PCP: Dr. Anaid Santiago MD Status:ADM I N Y Race: C Location: [facility] -1 Anesthesia: Postop Eval I Current Vital [...] 03/02/25 1300 <Electronically signed by Joanna leonard LEAN SIX SIGMA SENIOR SPECIALIST> Date _ Joanna Delgado CRNA Cosigner Signature: Date CC: ~ Signed [facility] Work Phone: 1(738) 258-229504-14-2025 Consult note Author Sae [facility] Note Date/Time March 02, 2025 11: 09am [facility] Medical Records Department [address] [place] [address] Pre-Anesthesia Evaluation 03/02/25 1109 MR#: [id number] Acct: [id number] Name: MICHAELA BRANDT Rep #:[id number] : 1940 84 From: Sae Sesay MD PCP: Dr. Anaid Santiago MD Status:ADM I N Y Race: C Location: [place] [address] -1 ASA Classification* ASA Classification ASA Classification: [...] left hip Anesthesia History Anesthesia History - microbiology technologist: Anesthesia History - microbiology technologist Hx Hospitalization Any Problems With Anesthesia No [...] take am of surgery PONV PONV - microbiology technologist: PONV - microbiology technologist Female HX of Motion Sickness HX of N/V After Surgery Non-Smoker Duration of Surgery greater than 60 minutes Number of Risk Factors PONV Score Height & Weight Height & Weight: Anesthesia: Height & Weight Height 5 ft 03/01/25 15:09 Weight: 57.7 kg 03/02/25 06:00 Body Mass Index (BMI) 25.0 03/02/25 06:00 Respiratory Assessment Respiratory Assessment - microbiology technologist: Respiratory Tract Infection Hx - microbiology technologist Hx Respiratory Tract Infection No 03/01/25 22:27 STOP Sleep Apnea STOP Sleep Apnea - microbiology technologist: STOP Sleep Apnea - microbiology technologist Hx Hypertension No 03/02/25 09:43 Hx Sleep [...] Tobacco Use History Tobacco Use History - microbiology technologist: Tobacco Use History - microbiology technologist Tobacco Use Smoking Status Never smoker 03/01/25 16:34 Hx Tobacco Use No 03/01/25 15:09 Years Smoking Packs Smoked per Day Smoking Cessation Date was within the last 15 years Hx Smoking Cessation Date Hx Smoking Cessation Counseling Hematologic Medial History Hematologic Hx - microbiology technologist: 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[employer] Hx of Blood Transfusion No 03/01/25 15:09 [...] confused, unrespo /Reproduction History /Reproductive History - microbiology technologist: /Reproductive Hx- microbiology technologist Hx Now No 03/01/25 22:27 Gestational Age [...] 03/02/25 10:49 IV 03/02/25 18:19 0 mls/hr .[id number] GRAY Infusion Sodium Chloride 100 mls @ [...] 15gm Bottle TOPICAL Not Given BID [facility] Protocol Ondansetron HCl 4 mg [...] Sae Sesay MD > Date _ Sae Owens Signature: Date CC: ~ Signed [facility] Work Phone: 1(682) 309-751604-14-2025 Consult note Author Elijah Overton [facility] Note Date/Time March 02, 2025 11: 05am [facility] Medical Records Department [address] [place] [address] Consultation - Orthopedics 03/02/25 1100 MR#: [id number] Acct: [id number] Name: MICHAELA BRANDT Rep #:[id number] : 1940 84 From: Elijah Laws PCP: Dr. Anaid Santiago MD Status:ADM I N Location: [facility] BO810-1 HPI Consult Data Date of Consult: 03/02/25 [...] and was the primary provider of information. [facility] Medical History Hypothyroidism Anxiety Dementia [...] 92.1 H, Lymph % (Auto) 3.3 L, Beltrami % (Auto) 3.8, Eos % (Auto) 0.0, [...] (Auto) 76.7 H, Lymph % (Auto) 11.6L, Beltrami % (Auto) 9.5, Eos % (Auto) 0.9, [...] fracture of the left femur. Reading Location: [facility] Knee X-Ray 03/01/25 11:41 IMPRESSION: Acute fracture of the left lateral femoral condyle. Reading Location: [facility] Brain CT 03/01/25 12:42 IMPRESSION: 1. No acute intracranial finding. 2. Findings of chronic microvascular ischemic changes and age-related changes. Reading Location: [facility] Lower Extremity CT 03/01/25 12:42 IMPRESSION: No acute osseous fracture. The previously visualized osseous fragment along the distal lateral left femoral condyle is secondary to diffuse bone lucency and probable nutrient channel. Reading Location: [facility] Chest X-Ray 03/01/25 13:59 IMPRESSION: Emphysema/fibrosis. No acute findings. Reading Location: [facility] Assessment & Plan Assessment/Plan (1) Closed [...] MD> Cosigner Signature (if applicable): CC: Dr. Anaid Santiago MD~ Signed [facility] Work Phone: 1(559) 252-766004-14-2025 Consult note [facility] Medical Records Department [address] [place] [address] Anesthesia Postop Eval I 03/02/25 1259 MR#: [id number] Acct: [id number] Name: MICHAELA BRANDT Rep #:[id number] : 1940 84 From: Joanna Delgado LEAN SIX SIGMA SENIOR SPECIALIST PCP: Dr. Anaid Santiago MD Status:ADM I N Y Race: C Location: [place] [address] Anesthesia: Postop Eval I Current Vital Signs [...] Eval 1 completed: Yes 03/02/[address] LEAN SIX SIGMA SENIOR SPECIALIST> Date _ Joanna Delgado LEAN SIX SIGMA SENIOR SPECIALIST Cosigner Signature: Date CC: ~ Signed [facility]04-14-2025 Procedure note [facility] Medical Records Department [address] [place] [address] Operative Report 03/02/25 1100 MR#: [id number] Acct: [id number] Name: MICHAELA BRANDT Rep #:[id number] : 1940 84 From: Elijah Laws PCP: Dr. Anaid Santiago MD Status:ADM I N Location: [place] [address] Operative Report (Standard) Operative Information Date of Procedure: 03/02/25 Pre-Operative Diagnosis: Left intertrochanteric hip fracture Post-Operative Diagnosis: Left intertrochanteric hip fracture Surgery/Procedure Performed: Left hip cephalomedullary nail sales development associate: No Type of Anesthesia: General RN Documented [...] verify theplacement of the nail and a Cambridge short gamma 3 by 11 mm 125 degree hip nail was selected. The 12.5 mm reamer was then passed. The nail was then attached to the decorator inspector and inserted into the intramedullary canal. The [...] Hose VTE Pharm Prophylaxis ordered?: Yes 03/02/25 7789 Cosigner Signature (if applicable): CC: Dr. Anaid Santiago MD; Dr. Roro Long DO; Dr. Boston Rosas DO; Dr. Elijah Overton MD~ Signed [facility]04-14-2025 Radiology Diagnostic study note [facility] Imaging Services [address] [place] [address] Hip Min 2 Views (Portable) MR#: [id number] Acct: [id number] Name: MICHAELA BRANDT Rep #: [id number] : 1940 F 84 From: Tanner Beth MD PCP: Dr. Anaid Santiago MD Status: ADM I N Study:Hip Min 2 Views (Portable) Date of Exam : 03/02/25 Exam# [id number] Ordering Dr: James Overton MD PROCEDURE: Intraoperative [...] of the left intertrochanteric fracture. Reading Location: [place] [address] CC: Dr. Anaid Santiago MD; Dr. Elijah Overton MD ~ Brake Press Operator: Signed [facility]04-14-2025 Consult note [facility] Medical Records Department [address] [place] [address] Pre-Anesthesia Evaluation 03/02/25 1109 MR#: [id number] Acct: [id number] Name: MICHAELA BRANDT Rep #:[id number] : 1940 84 From: Sae Sesay MD PCP: Dr. Anaid Santiago MD Status:ADM I N Y Race: C Location: [place] [address] ASA Classification* ASA Classification ASA Classification: 2 [...] left hip Anesthesia History Anesthesia History - microbiology technologist: Anesthesia History - microbiology technologist Hx Hospitalization Any Problems With Anesthesia No [...] take am of surgery PONV PONV - microbiology technologist: PONV - microbiology technologist Female HX of Motion Sickness HX of N/V After Surgery Non-Smoker Duration of Surgery greater than 60 minutes Number of Risk Factors PONV Score Height & Weight Height & Weight: Anesthesia: Height & Weight Height 5 ft 03/01/25 15:09 Weight: 57.7 kg 03/02/25 06:00 Body Mass Index (BMI) 25.0 03/02/25 06:00 Respiratory Assessment Respiratory Assessment - microbiology technologist: Respiratory Tract Infection Hx - microbiology technologist Hx Respiratory Tract Infection No 03/01/25 22:27 STOP Sleep Apnea STOP Sleep Apnea - microbiology technologist: STOP Sleep Apnea - microbiology technologist Hx Hypertension No 03/02/25 09:43 Hx Sleep [...] Tobacco Use History Tobacco Use History - microbiology technologist: Tobacco Use History - microbiology technologist Tobacco Use Smoking Status Never smoker 03/01/25 16:34 Hx Tobacco Use No 03/01/25 15:09 Years Smoking Packs Smoked per Day Smoking Cessation Date was within the last 15 years Hx Smoking Cessation Date Hx Smoking Cessation Counseling Hematologic Medial History Hematologic Hx - microbiology technologist: 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 Specify any problems Hx of Preganancy in last 3 No 03/01/25 15:09 Months Nurse Filling Out Transfusion JMRODERICK 03/01/25 15:09 & Questions: Date: 03/01/25 03/01/25 15:09 Time: 15:15 03/01/25 15:09 Patient unable to answer at this time (ie. confused, unrespo /Reproduction History /Reproductive History - microbiology technologist: /Reproductive Hx- microbiology technologist Hx Now No 03/01/25 22:27 Gestational Age [...] 03/02/25 10:49 IV 03/02/25 18:19 0 mls/hr .[id number] GRAY Infusion Sodium Chloride 100 mls @ [...] 15gm Bottle TOPICAL Not Given BID [facility] Protocol Ondansetron HCl 4 mg [...] 50 Mg Tablet PO Not Given QHS [facility] PFSH Medical History Hypothyroidism Anxiety [...] MD Cosigner Signature: Date CC: ~ Signed [facility]04-14-2025 Consult note [facility] Medical Records Department [address] [place] [address] Consultation - Orthopedics 03/02/25 1100 MR#: [id number] Acct: [id number] Name: MICHAELA BRANDT Rep #:[id number] : 1940 84 From: Elijah Lwas PCP: Dr. Anaid Santiago MD Status:ADM I N Location: [facility] [id number] HPI Consult Data Date of Consult: 03/02/25 [...] and was the primary provider of information. [facility] Medical History Hypothyroidism Anxiety Dementia [...] 92.1 H, Lymph % (Auto) 3.3 L, Beltrami % (Auto) 3.8, Eos % (Auto) 0.0, [...] (Auto) 76.7 H, Lymph % (Auto) 11.6L, Beltrami % (Auto) 9.5, Eos % (Auto) 0.9, [...] fracture of the left femur. Reading Location: [facility] Knee X-Ray 03/01/25 11:41 IMPRESSION: Acute fracture of the left lateral femoral condyle. Reading Location: [facility] Brain CT 03/01/25 12:42 IMPRESSION: 1. No acute intracranial finding. 2. Findings of chronic microvascular ischemic changes and age-related changes. Reading Location: [facility] Lower Extremity CT 03/01/25 12:42 IMPRESSION: No acute osseous fracture. The previously visualized osseous fragment along the distal lateral leftfemoral condyle is secondary to diffuse bone lucency and probable nutrient channel. Reading Location: [facility] Chest X-Ray 03/01/25 13:59 IMPRESSION: Emphysema/fibrosis. No acute findings. Reading Location: [facility] Assessment & Plan Assessment/Plan (1) Closed [...] 1105 Cosigner Signature (if applicable): CC: Dr. Anaid Santiago MD~ Signed [facility]04-14-2025 Discharge summary Author Guerrero Chawlaehne [facility] Note Date/Time March 01, 2025 10: 59pm [facility] Medical Records Department [address] [place] [address] Emergency Department Summary 03/01/25 MR#: [id number] Acct: [id number] Name: MICHAELA BRANDT Rep #:[id number] : 1940 84 From: Guerrero Sommer PCP: Dr. Anaid Santiago MD Status:ADM I N Location: [place] [address] HPI HPI - Fall History of Present [...] of dementia that is reported to me. [facility] Medical History (Updated 03/01/25 @ 13:[address] Roro Lnog, DO) Hypothyroidism Anxiety Dementia Self-catheterizes urinary bladder [...] Smoking Status: Unknown if ever smoked ROS [facility] ED Constitutional Constitutional ED: Denies chills or [...] 92.1 H Lymph % (Auto) 3.3 L Beltrami % (Auto) 3.8 Eos % (Auto) 0.0 [...] fracture of the left femur. Reading Location: [facility] Knee X-Ray 03/01/25 11:41 IMPRESSION: Acute fracture of the left lateral femoral condyle. Reading Location: [facility] Brain CT 03/01/25 12:42 IMPRESSION: 1. No acute intracranial finding. 2. Findings of chronic microvascular ischemic changes and age-related changes. Reading Location: [facility] Lower Extremity CT 03/01/25 12:42 IMPRESSION: No acute osseous fracture. The previously visualized osseous fragment along the distal lateral left femoral condyle is secondary to diffuse bone lucency and probable nutrient channel. Reading Location: [facility] EKG Initial EKG: Attestation: I personally reviewed and interpreted this EKG as follows: Comments: Sinus rhythm ventricular rate 65 bpm Management Discussion w/another healthcare provider: Hospitalist, Rock Mason Apprentice (Dr Rosas) and acoustical material worker/Case management Discharge Plan Dx/Rx/DC Orders Clinical Impression: Fall, Closed intertrochanteric fracture of left hip, Acute pain of left knee Disposition Disposition: Acute Care Hospital [facility] What to do if you have Problems For any increased pain, shortness of breath, bleeding, nausea or vomiting, chestpain, or any unexpected problems, contact your Primary Care Provider. Call [facility] ([phone]) or report to the closest Emergency Room. Call 911 if necessary. 03/01/252258 <Electronically signed by Guerrero Valerio DO> Cosigner Signature (if applicable): CC: Dr. Anaid Santiago MD ~ Signed [facility] Work Phone: 1(301) 539-627704-13-2025 Discharge summary [facility] Medical Records Department [address] [place] [address] Emergency Department Summary 03/01/25 MR#: [id number] Acct: [id number] Name: MICHAELA BRANDT Rep #:[id number] : 1940 84 From: Guerrero Sommer PCP: Dr. Anaid Santiago MD Status:ADM I N Location: [place] [address] HPI HPI - Fall History of Present [...] of dementia that is reported to me. [facility] Medical History (Updated 03/01/25 @ 13:47 [...] 92.1 H Lymph % (Auto) 3.3 L Beltrami % (Auto) 3.8 Eos % (Auto) 0.0 [...] fracture of the left femur. Reading Location: [facility] Knee X-Ray 03/01/25 11:41 IMPRESSION: Acute fracture of the left lateral femoral condyle. Reading Location: [facility] Brain CT 03/01/25 12:42 IMPRESSION: 1. No acute intracranial finding. 2. Findings of chronic microvascular ischemic changes and age-related changes. Reading Location: [facility] Lower Extremity CT 03/01/25 12:42 IMPRESSION: No acute osseous fracture. The previously visualized osseous fragment along the distal lateral leftfemoral condyle is secondary to diffuse bone lucency and probable nutrient channel. Reading Location: [facility] EKG Initial EKG: Attestation: I personally reviewed and interpreted this EKG as follows: Comments: Sinus rhythm ventricular rate 65 bpm Management Discussion w/another healthcare provider: Hospitalist, Rock Mason Apprentice (Dr Rosas) and acoustical material worker/Case management Discharge Plan Dx/Rx/DC Orders Clinical Impression: Fall, Closed intertrochanteric fracture of left hip, Acute pain of left knee Disposition Disposition: Acute Care Hospital [facility] What to do if you have Problems For any increased pain, shortness of breath, bleeding, nausea or vomiting, chestpain, or any unexpected problems, contact your Primary Care Provider. Call [facility] ([phone]) or report tothe closest Emergency Room. Call 911 if necessary. 03/01/25 5450 Cosigner Signature (if applicable): CC: Dr. Anaid Santiago MD ~ Signed [facility]04-13-2025 History and physical note Author Roro Long [facility] Note Date/Time March 01, 2025 4:3 7pm [facility] Medical Records Department [address] [place] [address] H&P Exam - Hospitalist 03/01/25 1345 MR#: [id number] Acct: [id number] Name: MICHAELA BRANDT Rep #:[id number] : 1940 84 From: Roro Long DO PCP: Dr. Anaid Santiago MD Status:ADM I N Location: [facility] ML613-7 HPI - General General Date of Admission: 03/01/25 Date of Service: 03/01/25 Chief Complaint: L hip pain after mechanical fall HPI Narrative MICHAELA BRANDT, is a 84 F who presented to the emergency department at [facility] on 03/01/2025 with a chief complaint [...] admitted with an expected 2 midnight stay. [facility] Medical History Hypothyroidism Anxiety Dementia [...] 92.1 H, Lymph % (Auto) 3.3 L, Beltrami % (Auto) 3.8, Eos % (Auto) 0.0, [...] fracture of the left femur. Reading Location: [facility] Knee X-Ray 03/01/25 11:41 IMPRESSION: Acute fracture of the left lateral femoral condyle. Reading Location: [facility] Brain CT 03/01/25 12:42 IMPRESSION: 1. No acute intracranial finding. 2. Findings of chronic microvascular ischemic changes and age-related changes. Reading Location: [facility] Lower Extremity CT 03/01/25 12:42 IMPRESSION: No acute osseous fracture. The previously visualized osseous fragment along the distal lateral left femoral condyle is secondary to diffuse bone lucency and probable nutrient channel. Reading Location: [facility] Assessment & Plan Assessment/Plan (1) Closed [...] code temporarily. Charges/Coding Visit Charges Inpatient E&M: 07202 Init Hosp L2 03/01/25 1637 <Electronically signed by Roro Long DO> Cosigner Signature (if applicable): CC: Dr. Anaid Santiago MD; Dr. Roro Long DO~ Signed [facility] Work Phone: 1(257) 918-787604-13-2025 History and physical note [facility] Medical Records Department [address] [place] [address] H&P Exam - Hospitalist 03/01/25 1345 MR#: [id number] Acct: [id number] Name: MICHAELA BRANDT Rep #:[id number] : 1940 84 From: Roro Long DO PCP: Dr. Anaid Santiago MD Status:ADM I N Location: [facility] [id number] HPI - General General Date of Admission: 03/01/25 Date of Service: 03/01/25 Chief Complaint: L hip pain after mechanical fall HPI Narrative MICHAELA BRANDT, is a 84 F who presented to the emergency department at [facility] on03/01/2025 with a chief complaint of [...] admitted with an expected 2 midnight stay. [facility] Medical History Hypothyroidism Anxiety Dementia [...] 92.1 H, Lymph % (Auto) 3.3 L, Beltrami % (Auto) 3.8, Eos % (Auto) 0.0, [...] fracture of the left femur. Reading Location: [facility] Knee X-Ray 03/01/25 11:41 IMPRESSION: Acute fracture of the left lateral femoral condyle. Reading Location: [facility] Brain CT 03/01/25 12:42 IMPRESSION: 1. No acute intracranial finding. 2. Findings of chronic microvascular ischemic changes and age-related changes. Reading Location: [facility] Lower Extremity CT 03/01/25 12:42 IMPRESSION: No acute osseous fracture. The previously visualized osseous fragment along the distal lateral leftfemoral condyle is secondary to diffuse bone lucency and probable nutrient channel. Reading Location: [facility] Assessment & Plan Assessment/Plan (1) Closed [...] code temporarily. Charges/Coding Visit Charges Inpatient E&M: 84640 Init Hosp L2 03/01/25 1637 Cosigner Signature (if applicable): CC: Dr. Anaid Santiago MD; Dr. Roro Long DO~ Signed [facility]04-13-2025 Evaluation note* Diagnosis Onset Date Resolution Status Admit Date Acute pain of left knee acute A pril 2024 1:47pm Closed intertrochanteric fra cture of left hip acute March 01, 2025 1:47pm Fall acute March 01 1:47pm [facility] Work Phone: 1(918) 602-374604-13-2025 Evaluation note* Diagnosis Onset Date Resolution Status [...] 2025 3:04pm Fall inactive March 04 3:04pm [facility] Work Phone: 1(749) 520-939304-13-2025 Evaluation note* Diagnosis Onset Date Resolution Status [...] acute June 20 2:26pm Generalized weakness acute Aug2024 2:26pm Self-catheterizes urinary bladder ac [place] June 20, 2025 2:26pm [facility] Work Phone: 1(790) 239-777204-13-2025 Radiology Diagnostic study note [facility] Imaging Services [address] [place] [address] Chest 1 View (Portable) MR#: [id number] Acct: [id number] Name: MICHAELA BRANDT Rep #: [id number] : 1940 F 84 From: Jo Rabago MD PCP: Dr. Anaid Santiago MD Status: ADM I N Study:Chest 1 View (Portable) Date of Exam: 03/01/25 Exam# [id number] Ordering Dr: Cassy Long DO PROCEDURE: CHEST [...] IMPRESSION: Emphysema/fibrosis. No acute findings. Reading Location: [facility] CC: Dr. Anaid Santiago MD; Dr. Roro Long DO ~ Brake Press Operator: Signed [facility]04-13-2025 Radiology Diagnostic study note [facility] Imaging Services [address] [place] [address] Knee 1 or 2 Views MR#: [id number] Acct: [id number] Name: MICHAELA BRANDT Rep #: [id number] : 1940 F 84 From: Jo Rabago MD PCP: Dr. Anaid Santiago MD Status: REG E R Study:Knee 1 or 2 Views Date of Exam: Exam# [id number] Ordering Dr: Veto Valerio DO ADDENDUM by Dr. Janet Rabago MD on 03/01/25 at 1310 No acute osseous fracture seen on same day CT of the left knee. The previously visualized osseous fragment along the distal lateral left femoral condyle is secondary to diffuse bone lucency and probable nutrient channel. Reading Location: [facility] 03/01/25 1311 Date cc: Dr. Anaid Santiago MD; Dr. Guerrero Valerio DO ~* [...] the left lateral femoral condyle. Reading Location: [facility] CC: Dr. Anaid Santiago MD; Dr. Guerrero Valerio DO ~ Brake Press Operator: Signed [facility]04-13-2025 Radiology Diagnostic study note [facility] Imaging Services [address] [place], [place] [id number] Extremity Lower without Contra MR#: [id number] Acct: [id number] Name: MICHAELA BRANDT Rep #: [id number] : 1940 F 84 From: Jo Rabago MD PCP: Dr. Anaid Santiago MD Status: REG E R Study:Extremity Lower without Contra Date of Exam: 03/01/25 Exam# [id number] Ordering Dr: Veto Valerio DO PROCEDURE: EXTREMITY [...] lucency and probable nutrient channel. Reading Location: [facility] CC: Dr. Anaid Santiago MD; Dr. Guerrero Valerio DO ~ Brake Press Operator: Signed [facility]04-13-2025 Radiology Diagnostic study note [facility] Imaging Services [address] [facility] [place] [address] Brain/Head without Contrast MR#: [id number] Acct: [id number] Name: MICHAELA BRANDT Rep #: [id number] : 1940 F 84 From: Jo Rabago MD PCP: Dr. Anaid Santiago MD Status: REG E R Study:Brain/Head without Contrast Date of Exa m: 03/01/25 Exam# [id number] Ordering Dr: Veto Valerio DO EXAM: BRAIN/HEAD [...] ischemic changes and age-related changes. Reading Location: [facility] CC: Dr. Anaid Santiago MD; Dr. Guerrero Valerio DO ~ Brake Press Operator: Signed [facility]04-13-2025 Radiology Diagnostic study note [facility] Imaging Services [address] [place] [address] HIP, UNI W/ Pelvis 2-3 Views MR#: [id number] Acct: [id number] Name: MICHAELA BRANDT Rep #: [id number] : 1940 F 84 From: Jo Rabago MD PCP: Dr. Anaid Santiago MD Status: REG E R Study:HIP, UNI W/ Pelvis 2-3 Views Date of Ex am: 03/01/25 Exam# [id number] Ordering Dr: Veto Valerio DO PROCEDURE: HIP, [...] fracture of the left femur. Reading Location: [facility] CC: Dr. Anaid Santiago MD; Dr. Guerrero Valerio DO ~ Brake Press Operator: Signed [facility]04-11-2025 Telephone encounter Note* Telephone Encounter - Renate Montgomery MSW - 02/27/2025 2:48 PM EDT Thomas spoke with patient daughter Osmayn. Osmany noted that her mother is currently living on [address] [place] is concerned about mother living by herself. There are cameras set up in apt to keep watch on patient in case of falls. Discussed different social service agencies and services they offer ie. [employer] and [employer]. Thomas provided patient daughter with [employer], [employer] phone number for help with looking at memory care options in the area. Sw and daughter also discussed different local memory care options ie. [place], [place], [facility], [facility]. Osmany notes that her mom was not interested in any place that "looks like a fci." Discussed the different options above and layout and levels of care they offer. Osmany notes that she is going to give Yuko a call from [employer] to see about her assistance as a retirement advisor looking at level of care memory care options for patient. Osmany has this Thomas direct number for further assistance. [facility]04-11-2025 Miscellaneous Notes* Telephone Encounter - Renate Montgomery MSW - 02/27/2025 2:48 PM EDT Thomas spoke with patient daughter Osmany. Osmany noted that her mother is currently living on [address] [place] is concerned about mother living by herself. There are cameras set up in apt to keep watch on patient in case of falls. Discussed different social service agencies and services they offer ie. [employer] [facility] [employer] and [employer]. Thomas provided patient daughter with [employer] phone number for help with looking at memory care options in the area. Sw and daughter also discussed different local memory care options ie. [facility], [place], [facility], [facility]. Osmany notes that her mom was not interested in any place that "looks like a fci." Discussed the different options above and layout and levels of care they offer. Osmany notes that she is going to give Yuko a call from [employer] to see about her assistance as a retirement advisor looking at level of care memory care options for patient. Osmany has this Thomas direct number for further assistance. * Telephone Encounter - Renate Montgomery MSW - 02/27/2025 2:26 PM EDT Sw left message for patient requesting call back to discuss patient home care resource needs. documented [facility] this [facility] Telephone encounter Note * Telephone Encounter - Renate Montgomery MSW - 02/27/2025 2:26 PM EDT Sw left message for patient requesting call back to discuss patient home care resource needs. [facility]04-09-2025 Telephone encounter Note* Telephone Encounter - Lawrence Salinas APRN.CNP - 02/25/2025 8:56 AM EDT PDMP website checked and validated. All prescriptions have been APPROPRIATELY filled. No suspiciousactivity was identified. 02/25/2025 by Lawrence Salinas APRN.CNP [facility]04-09-2025 Miscellaneous Notes* Telephone Encounter - Lawrence Salinas APRN.CNP - 02/25/2025 8:56 AM EDT PDMP website checked and validated. All prescriptions have been APPROPRIATELY filled. No suspiciousactivity was identified. 02/25/2025 by Lawrence Salinas APRN.CNP * Telephone Encounter - Radha [...] you. Radha Haro LPN. documented in this [facility] Telephone encounter Note * Telephone Encounter - [...] Please advise. Thank you. Radha Haro LPN. [facility]04-06-2025 Telephone encounter Note* Telephone Encounter - Sara Adams OCCA - 02/22/2025 9:08 AM EDT TC to patients daughter and medical JUAN Michaela, who verbalized understanding of providers message below. KIRIT Mendez [facility]04-06-2025 Miscellaneous Notes* Telephone Encounter - Sara Adams [...] to see primary care documented in this [facility]Met[facility] Telephone encounter Note * Telephone Encounter - Walt Robles APRN.CNP - 02/22/2025 8:31 AM EDT Patient is on the correct antibiotic. Symptoms should be improving. If symptoms are not improving patient needs to see primary care [facility]04-03-2025 Telephone encounter Note* Telephone Encounter - Colten Greer MA - 02/19/2025 3:19 PM EDT Spoke with patient's daughter. Daughter will bring patient in for urine. Colten Greer MA [facility]04-03-2025 Miscellaneous Notes* Telephone Encounter - Colten Greer MA - 02/19/2025 3:19 PM EDT Spoke with patient's daughter. Daughter will bring patient in for urine. Colten Greer MA * Telephone Encounter - Walt Robles APRN.CNP - 02/19/2025 3:03 PM EDT Please call patient and have her come back in and give a urine culture. documented in this encounter[facility]25 Telephone encounter Note * Telephone Encounter - Walt Robles APRN.CNP - 02/19/2025 3:03 PM EDT Please call patient and have her come back in and give a urine culture. [facility]04-03-2025 NoteHNO ID: [id number] Author: WALT ROBLES APRN.ARIEL Service: ? Author [...] history is provided by the patient. No creche attendant was used. Review of Systems Constitutional: [...] be changed please change accordingly. Walt Robles APRN.[facility]04-03-2025 History of Present illness Narrative* Walt Robles APRN.INSIGHT DIRECTOR - 02/19/2025 11:37 AM EDT [employer] [...] history is provided by the patient. No creche attendant was used. Review of Systems Constitutional: [...] Robles APRN.CNP MDM Procedures documented in this encounterMet[facility]04-[facility]-2025 NoteHNO ID: [id number] Author: MICHAELA DAVILA MA Service: ? Author Type: Vascular Technologist Type: Progress Notes Filed: 02/18/2025 16:19 Note Text: Ambulatory Ear Lavage Pre-treatment: No pre-treatment Treatment: Right ear Equipment and Irrigation solution and Volume used: Single use syringe with single use irrigation tip Water Return flow appearance: Debris Patient tolerated procedure: yes Tympanic membrane assessment: Tympanic membrane assessed by LIP pre and post procedure[facility] History of Present illness Narrative* Michaela Davila MA - 02/18/2025 11:19 AM EDT Ambulatory Ear Lavage Pre-treatment: No pre-treatment Treatment: Right ear Equipment and Irrigation solution and Volume used: Single use syringe with single use irrigation tip Water Return flow appearance: Debris Patient tolerated procedure: yes Tympanic membrane assessment: Tympanic membrane assessed by LIP pre and post procedure * Lawrence Salinas APRN.CNP - 02/18/2025 10:26 AM EDT [...] symptoms occur. Patient agreeable to treatment plan. Lawrence Salinas APRN.CNP Medical Decision Making: Problems: Minimal: Self-limited or minor problem Data: Unique test(s) ordered: 1 Risk: Low: Low risk from testing/treatment Medical Decision Making Level: 2 - Straightforward documented in this encounterMet[facility]04-02-2025 NoteHNO ID: [id number] Author: LAWRENCE SALINAS APRN.CNP Service: ? Author Type: Nurse [...] symptoms occur. Patient agreeable to treatment plan. Lawrence Salinas APRN.ARIEL Medical Decision Making: Problems: Minimal: Self-limited or minor problem Data: Unique test(s) ordered: 1 Risk: Low: Low risk from testing/treatment Medical Decision Making Level: 2 - StraightforwardMet[facility] 02-04-2025 NoteHNO ID: [id number] Author: ANAID SANTIAGO MD Service: ? Author Type: Physician [...] and Metamucil crackers to manage these symptoms. Michaeal denies frequent diarrhea and attributes her digestive [...] increased anxiety or adv (more content not included)...[facility]03-19-[facility] History of Present illness Narrative* Anaid Santiago MD - 02/04/2025 3:41 PM EDT [...] patient consented to the use of ambient [employer] software for draft documentation of the visit consistent with [facility] s Notice of Privacy Practices. Anaid Santiago MD documented in this encounterMet[facility]03-19-2025 Instructions* Patient Instructions* Anaid Santiago MD - 02/04/2025 11:58 AM EDT [...] in managing your health. documented in this encounterMet[facility]03-19-2025 Telephone encounter Note * Telephone Encounter - Deshawn LombardoRAMIREZ - 02/04/2025 10:47 AM EDT Patient Ad [employer] message requesting the following refill Refill(s) Requested: Requested Prescriptions Pending Prescriptions Disp Refills donepezil (ARICEPT) 5 mg tablet 30 tablet 11 Sig: Take 1 tablet by mouth daily at bedtime. ALLERGIES No Known Allergies (home) [phone] (cell) Last Office Visit Date: 12/10/2024 Last Distance Health Visit: Visit date not found Future Appointment: 02/04/2025 The patients preferred pharmacy has been captured for this encounter? yes Request is for script(s) to be escript to pharmacy. Deshawn Lombardo LPN [facility]03-19-2025 Miscellaneous Notes* Telephone Encounter - Deshawn Lombardo LPN - 02/04/2025 10:47 AM EDT Patient [employer] message requesting the following refill Refill(s) Requested: Requested Prescriptions Pending Prescriptions Disp Refills donepezil (ARICEPT) 5 mg tablet 30 tablet 11 Sig: Take 1 tablet by mouth daily at bedtime. ALLERGIES No Known Allergies (home) [phone] (cell) Last Office Visit Date: 12/10/2024 Last Distance Health Visit: Visit date not found Future Appointment: 02/04/2025 The patients preferred pharmacy has been captured for this encounter? yes Request is for script(s) to be escript to pharmacy. Deshawn Lombardo LPN documented in this encounterMet[facility]03-13-2025 Telephone encounter Note * Telephone Encounter - Michaela Davila MA - 01/29/2025 8:47 AM EDT Please assist patient in scheduling geriatric follow up to review MRI results per Dr Santiago. [facility]03-13-2025 Miscellaneous Notes* Telephone Encounter - Michaela Davila MA - 01/29/2025 8:47 AM EDT Please assist patient in scheduling geriatric follow up to review MRI results per Dr Santiago. * Telephone Encounter - Michaela Davila MA - 01/29/2025 8:45 AM EDT ----- Message from Anaid Santiago MD sent at 01/28/2025 4:42 PM EDT ----- Please asked patient to make an appointment with me tomorrow or next week to follow-up on her MRI. You could cancel the Lawrence older appointment that is upcoming and just keeps appointment with me. Regards, Anaid Santiago MD documented in this encounterMet[facility]03-13-2025 Telephone encounter Note * Telephone Encounter - Michaela Davila MA - 01/29/2025 8:45 AM EDT ----- Message from Anaid Santiago MD sent at 01/28/2025 4:42 PM EDT ----- Please asked patient to make an appointment with me tomorrow or next week to follow-up on her MRI. You could cancel the Lawrence older appointment that is upcoming and just keeps appointment with me. Regards, Anaid Santiago MD [facility]03-10-2025 Miscellaneous Notes* Telephone Encounter - Michaela Davila MA - 01/26/2025 2:39 PM EDT Please see patient directions for use. Patient will run out of medication before fill date. documented in this encounterMet[facility]03-10-2025 Telephone encounter Note * Telephone Encounter - Michaela Davila MA - 01/26/2025 2:39 PM EDT Please see patient directions for use. Patient will run out of medication before fill date. [facility]03-10-2025 Telephone encounter Note* Telephone Encounter - Kecia Red RN - 01/26/2025 11:13 AM EDT Daughter Adolfo) calls to ask if provider could send [...] Please review and advise, Kecia Red RN [facility]03-10-2025 Miscellaneous Notes* Telephone Encounter - Kecia Red RN - 01/26/2025 11:13 AM EDT Daughter (Osmany) calls to ask if provider could send [...] advise, Kecia Red RN documented in this encounterMet[facility]03-08-2025 History of Present illness Narrative* Brit oJseph, RT(R) - 01/24/2025 12:30 PM ESTSummary: MRI [...] PATIENT PRESENTS WITH AN IMPLANTABLE OR ATTACHED COOK PRESSURE: No RADIOLOGY DEPARTMENT: MR; Exam(s) Completed: Head: Routine Brain (QUANT) PERIPHERAL IV DATA: Not applicable SIGNED BY: ROGELIO Osborne)(MR) January 24, 2025 1:31 PM documented in this encounterMet[facility]03-08-2025 NoteHNO ID: [id number] Author: BRIT JOSEPH RT (R) Service: Radiology Author Type: [...] PATIENT PRESENTS WITH AN IMPLANTABLE OR ATTACHED COOK PRESSURE: No RADIOLOGY DEPARTMENT: MR; Exam(s) Completed: Head: Routine Brain (QUANT) PERIPHERAL IV DATA: Not applicable SIGNED BY: RT [place](R)(MR) January 24, 2025 1:31 PM[facility] Telephone encounter Note* Telephone Encounter - Lawrence Salinas APRN.CNP - 01/22/2025 3:13 PM EST PDMP website checked and validated. All prescriptions have been APPROPRIATELY filled. No suspiciousactivity was identified. 01/22/2025 by Lawrence Salinas APRN.CNP [facility]03-06-2025 Miscellaneous Notes* Telephone Encounter - Lawrence Salinas APRN.CNP - 01/22/2025 3:13 PM EST [facility]. All prescriptions have been APPROPRIATELY filled. No suspiciousactivity was identified. 01/22/2025 by Lawrence Salinas APRN.CNP * Telephone Encounter - Radha [...] you. Radha Haro LPN. documented in this encounterMet[facility]03-05-2025 Telephone encounter Note * Telephone Encounter - [...] Please advise. Thank you. Radha Haro LPN. [facility]02-13-2025 Telephone encounter Note* Telephone Encounter - Jada [...] Cruz LPN January 01, 2025 8:02 AM [facility]02-13-2025 Miscellaneous Notes* Telephone Encounter - Jada Dela [...] 01, 2025 8:02 AM documented in this encounterMet[facility]02-06-2025 Telephone encounter Note * Telephone Encounter - Devin Crespo LPN - 12/25/2024 12:50 PM EST Received one lab from [facility] via [employer] [facility]. Uploaded to [employer] via [employer]. Devin Crespo LPN [facility]02-06-2025 Miscellaneous Notes* Telephone Encounter - Devin Crespo LPN - 12/25/2024 12:50 PM EST Received one lab from [email or web address] [facility] via [employer] [facility] [employer]. Uploaded to [employer] via [employer]. Devin Crespo LPN * Telephone Encounter - Devin Crespo LPN - 12/23/2024 4:45 PM EST Faxed signed Authorization to Disclose Health Information to [facility] to office of Dr. Ovalle for urological records. Devin Crespo LPN documented in this encounterMetrohealth [facility]02-04-2025 Telephone encounter Note * Telephone Encounter - Devin Crespo LPN - 12/23/2024 4:45 PM EST Faxed signed Authorization to Disclose Health Information to [facility] to office of Dr. Ovalle for urological records. Devin Crespo LPN [facility]02-04-2025 NoteHNO ID: [id number] Author: GRAZYNA BRIGHT RN Service: ? Author Type: Physician Financial Planning Consultant Type: Progress Notes Filed: 05/19/2025 09:06 Note Text: [facility], [facility] [place] [facility] NEW PATIENT CLINIC NOTE (F) SERVICE [...] for permanent urinary reten (more content not included)...[facility]02-04[facility] History of Present illness Narrative* Freddy Baltazar PA-C - 12/23/2024 10:59 AM EST Images from the original note were not included. [facility], [facility] [place] [facility] NEW PATIENT CLINIC NOTE [...] VADIM Stanford MT, PA-C documented in this encounterMetrohealth [facility] Center01-28-2025 Miscellaneous Notes* Telephone Encounter - Colten Greer MA - 12/16/2024 2:33 PM EST Spoke with Giovanni at [facility]. Once he has seen the patient and admitted into their program, he will be faxing forms for Dr. Santiago to sign. Patient's daughter informed and we will await forms. Colten Greer MA * Telephone Encounter - Deshawn Lombardo LPN - 12/12/2024 2:28 PM EST Called [place] for 2nd time, left message with Intake. To call office back [facility]# [phone] Deshawn Lombardo LPN December 12, 2024 2:29 PM * Telephone Encounter - Colten Greer MA - 12/10/2024 2:10 PM EST Patient's daughter states that [facility] needs something from Dr. Santiago that its ok for patient to attend but not sure what exactly is needed. Phone call to [facility] for intake to contact our office to see what information they need from us. Colten Greer MA documented in this encounterMet[facility]01-28-2025 Telephone encounter Note * Telephone Encounter - Colten Greer MA - 12/16/2024 2:33 PM EST Spoke with Giovanni at [facility]. Once he has seen the patient and admitted into their program, he will be faxing forms for Dr. Santiago to sign. Patient's daughter informed and we will await forms. Colten Greer MA [facility]01-27-2025 Telephone encounter Note* Telephone Encounter - Lawrence Salinas APRN.CNP - 12/15/2024 7:14 AM EST PDMP website checked and validated. All prescriptions have been APPROPRIATELY filled. No suspiciousactivity was identified. 12/15/2024 by Lawrence Salinas APRN.ARIEL [facility]01-27-2025 Miscellaneous Notes* Telephone Encounter - Lawrence Salinas APRN.CNP - 12/15/2024 7:14 AM EST PDMP website checked and validated. All prescriptions have been APPROPRIATELY filled. No suspiciousactivity was identified. 12/15/2024 by Lawrence Salinas APRN.ARIEL * Telephone Encounter - Deshawn Lombardo LPN - 12/12/2024 3:16 PM EST Patient Ad [employer] message requesting the following refill Refill(s) Requested: Requested Prescriptions Pending Prescriptions Disp Refills clonazePAM (KLONOPIN) 0.5 mg tablet 45 tablet 0 Sig: Take 1 tablet by mouth three times a day as needed for anxiety for up to 30 days. ALLERGIES No Known Allergies (home) [phone] (cell) Last Office Visit Date: 11/05/2024 Last Distance Health Visit: Visit date not found Future Appointment: 02/04/2025 The patients preferred pharmacy has been captured for this encounter? yes Request is for script(s) to be escript to pharmacy. Deshawn Lombardo LPN documented in this encounterMet[facility]01-24-2025 Telephone encounter Note * Telephone Encounter - Deshawn Lombardo LPN - 12/12/2024 3:16 PM EST Patient Ad [employer] message requesting the following refill Refill(s) Requested: Requested Prescriptions Pending Prescriptions Disp Refills clonazePAM (KLONOPIN) 0.5 mg tablet 45 tablet 0 Sig: Take 1 tablet by mouth three times a day as needed for anxiety for up to 30 days. ALLERGIES No Known Allergies (home) [phone] (cell) Last Office Visit Date: 11/05/2024 Last Distance Health Visit: Visit date not found Future Appointment: 02/04/2025 The patients preferred pharmacy has been captured for this encounter? yes Request is for script(s) to be escript to pharmacy. Deshawn EugeneRAMIREZ [facility]01-24-2025 Telephone encounter Note* Telephone Encounter - EugeneDeshawn bairdRAMIREZ - 12/12/2024 2:28 PM EST Called [place] for 2nd time, left message with Intake. To call office back [facility]# [phone] Deshawn EugeneRAMIREZ December 12, 2024 2:29 PM [facility]01-22-2025 Telephone encounter Note* Telephone Encounter - Colten Greer MA - 12/10/2024 2:10 PM EST Patient's daughter states that [facility] needs something from Dr. Santiago that its ok for patient to attend but not sure what exactly is needed. Phone call to [facility] for intake to contact our office to see what information they need from us. Colten Greer MA [facility]01-22-2025 NoteHNO ID: [id number] Author: COLTEN GREER MA Service: ? Author Type: Vascular Technologist Type: Progress Notes Filed: 12/10/2024 17:10 Note Text: Patient presents for geriatric consult with daughter Teodora. Rooming intake completed with patient and Teodora to ensure accuracy. PHQ-9 and MOCA reviewed with patient and entered into questionnaires. Colten Greer [facility]01-22-2025 History of Present illness Narrative* Colten Greer MA - 12/10/2024 1:11 PM EST Patient presents for geriatric consult with daughter Teodora. Rooming intake completed with patient and Teodora to ensure accuracy. PHQ-9 and MOCA reviewed with patient and entered into questionnaires. Colten Gerer MA * Anaid Santiago MD - 12/10/2024 12:54 PM EST [facility] Initial Consult Michaela Brandt is a 84 year old year old female who comes for Comprehensive Geriatric Assessment. Pt accompanied by: daughter Osmany Caregivers involved in care: HPI: This is a 84-year-old woman with a past medical history of Hypothyroidism, chronic urinary retention which needs self cath, 4 times daily, with insomnia and anxiety. She has been having memory issues for a while, and has been getting worse. She moved recently from her daughters house to be over seen by another daughter Osmany. The plan is for her to be rentingfor a while and try to see if she can manage on her own. They are looking into [facility]. Have cameras installed so they [...] she knows and feels. Just moved to [place] where her daughter lives after needing to sell her 3 story home to allow her to continue to live independently. Last PCP was Ludin Richey in the [place] area. Is now in her own 1 level apartment. Needs assistance with medication dispensing and is needing support to drive herto appointments and to the store. Is hoping to go to [facility] a few times a week as well. [...] UTIs and followed with a urologist in [place]. Denies abdominal pain, fever, chills, or dark/foul [...] secure location? No Social History: Primary language: Macanese Marital Status: Living situation: Home w/ Family Socially engaged? (participates in activities such as clubs, orthodox, community center, sports, games, visiting friends/relatives, etc?): YES once a week she goes out. Caregiver Ringold and Stress Are your feeling overwhelmed? NO [...] End Date , Taking? Yes, Authorizing Provider Lawrence Salians APRN.INSIGHT DIRECTOR Medication escitalopram oxalate (LEXAPRO) 20 mg tablet, Sig Take 1 tablet by mouth once daily., Start Date 11/05/24, End Date , Taking? Yes, Authorizing Provider Lawrence Salinas APRN.INSIGHT DIRECTOR Medication traZODone (DESYREL) 50 mg tablet, Sig Take 1 tablet by mouth daily at bedtime., Start Date 11/05/24, End Date , Taking? Yes, Authorizing Provider Lawrence Salinas APRN.INSIGHT DIRECTOR Medication clonazePAM (KLONOPIN) 0.5 mg tablet, Sig Take 1 tablet by mouth three times a day as needed for anxiety for up to 30 days., Start Date 11/05/24, End Date 12/05/24, Taking? , Authorizing Provider Lawrence Salinas APRN.INSIGHT DIRECTOR Other OTC med/supplements: None Medication Review: - ANY HIGH RISK MEDICATIONS (STOPP CRITERIA): NO ALLERGIES No Known Allergies Review of Systems Difficulty chew/swallow: No Pain: No Tremor: No Incontinence - During the last 3 months did you leak urine? NO Constipation/Change in bowel habits: NO Vision No vision problems reported Follows with river expedition guide:YES Hearing - Hearing aid : Denies any [...] encouraged to make her paper work for [employer] and living mike. REFERRALS AND RECOMMENDATIONS 1. Discussed the cognitive benefits of memory exercises and reviewed examples 2. Discussed the cognitive benefits of physical exercise and socialization Anaid Santiago MD [facility] documented in this encounterMet[facility]01-22-2025 NoteHNO ID: [id number] Author: ANAID SANTIAGO MD Service: ? Author Type: Physician Type: Progress Notes Filed: 12/10/2024 17:10 Note Text: [facility] Initial Consult Michaela Brandt is a 84 year old year old female who comes for Comprehensive Geriatric Assessment. Pt accompanied by: daughter Osmany Caregivers involved in care: HPI: This is a 84-year-old woman with a past medical history of Hypothyroidism, chronic urinary retention which needs self cath, 4 times daily, with insomnia and anxiety. She has been having memory issues for a while, and has been getting worse. She moved recently from her daughters house to be over seen by another daughter Osmany. The plan is for her to be renting for a while and try to see if she can manage on her own. They are looking into [facility]. Have cameras installed so they [...] she knows and feels. Just moved to [place] where her daughter lives after needing to sell her 3 story home to allow her to continue to live independently. Last PCP was Ludin Richey in the [place] area. Is now in her own 1 level apartment. Needs assistance with medication dispensing and is needing support to drive her to appointments and to the store. Is hoping to go to [employer] [place] a few times a week as well. [...] UTIs and followed with a urologist in [place]. Denies abdominal pain, fever, chills, or dark/foul [...] secure location? No Social History: Primary language: Macanese Marital Status: Living situation: Home w/ Family Socially engaged? (participates in activities such as clubs, orthodox, community center, sports, games, visiting friends/relatives, etc?): YES once a week she goes out. Caregiver Ringold and Stress Are your feeling overwhelmed? NO [...] End Date , Taking? Yes, Authorizing Provider Lawrence Salinas APRN.INSIGHT DIRECTOR Medication escitalopram oxalate (LEXAPRO) 20 m (more content not included)... [facility]01-03-[facility]25 Telephone encounter Note* Telephone Encounter - Lawrence Salinas APRN.CNP - 11/21/2024 1:10 PM EST Recently filled by Dr. Kaiden Salinas APRN.CNP [facility]01-03-2025 Miscellaneous Notes* Telephone Encounter - Lawrence Salinas APRN.CNP - 11/21/2024 1:10 PM EST Recently filled by Dr. Kaiden Salinas APRN.CNP * Telephone Encounter - Rosaura Melchor MD - 11/16/2024 8:12 PM EST RX filled 11/13 per PDMP Ludin Richey prescribed med Kevin Monge also sent RX 11/05 Check with patient if got RX. If not, check with pharmacy * Telephone Encounter - Deshawn Lombardo LPN - 11/14/2024 8:16 AM EST Family member Ad [employer] message requesting the following refill Refill(s) Requested: Requested Prescriptions Pending Prescriptions Disp Refills clonazePAM (KLONOPIN) 0.5 mg tablet 45 tablet 0 Sig: Take 1 tablet by mouth three times a day as needed for anxiety for up to 30 days. ALLERGIES No Known Allergies (home) [phone] (cell) Last Office Visit Date: 11/05/2024 Last Distance Health Visit: Visit date not found Future Appointment: 02/04/2025 The patients preferred pharmacy has been captured for this encounter? yes Request is for script(s) to be escript to pharmacy. Deshawn Lombardo LPN documented in this encounterMet[facility]12-29-2024 Telephone encounter Note * Telephone Encounter - Rosaura Melchor MD - 11/16/2024 8:12 PM EST RX filled 11/13 per PDMP Ludin Richey prescribed med Kevin Lawrence also sent RX 11/05 Check with patient if got RX. If not, check with pharmacy [facility] Work Phone: [phone]) 100-819512-27-2024 Telephone encounter Note* Telephone Encounter - Deshawn Lombardo LPN - 11/14/2024 8:16 AM EST Family member MyChart message requesting the following refill Refill(s) Requested: Requested Prescriptions Pending Prescriptions Disp Refills clonazePAM (KLONOPIN) 0.5 mg tablet 45 tablet 0 Sig: Take 1 tablet by mouth three times a day as needed for anxiety for up to 30 days. ALLERGIES No Known Allergies (home) [phone] (cell) Last Office Visit Date: 11/05/2024 Last [facility] Visit: Visit date not found Future Appointment: 02/04/2025 The patients preferred pharmacy has been captured for this encounter? yes Request is for script(s) to be escript to pharmacy. Deshawn Lombardo LPN [facility]12-19-2024 Telephone encounter Note* Telephone Encounter - Jada Dela Cruz LPN - 11/06/2024 8:39 AM EST Received a request from pt's pharmacy. See message from pharmacy. Jada Dela Cruz LPN [facility]12-19-2024 Miscellaneous Notes* Telephone Encounter - Jada Dela Cruz LPN - 11/06/2024 8:39 AM EST Received a request from pt's pharmacy. See message from pharmacy. Jada Dela Cruz LPN documented in this encounterMetrohealth [facility] Center12-18-2024 NoteHNO ID: [id number] Author: LAWRENCE SALINAS APRN.INSIGHT DIRECTOR Service: ? Author Type: Nurse Practitioner Type: Progress Notes Filed: 11/05/2024 15:38 Note Text: CC: Patient presents with: Establish Care: Establish Care HPI Michaela Brandt is a 84 year old female who presents today for establish care. Just moved to [place] where her daughter lives after needing to sell her 3 story home to allow her to continue to live independently. Last PCP was Ludin Richey in the [place] area. Is now in her own 1 level apartment. Needs assistance with medication dispensing and is needing support to drive her to appointments and to the store. Is hoping to go to [employer] a few times a week as well. [...] UTIs and followed with a urologist in [place]. Denies abdominal pain, fever, chills, or dark/foul [...] 311, ICD10: F41.9, F32.A (more content not included)...[facility]12[facility] History of Present illness Narrative* Lawrence Salinas APRN.[facility] - 11/05/2024 2:39 PM EST CC: Patient presents with: Establish Care: Establish Care HPI Michaela Brandt is a 84 year old female who presents today for establish care. Just moved to [place] where her daughter lives after needing to sell her 3 story home to allow her to continue to live independently. [facility] P[facility]. Is now in her own 1 level apartment. Needs assistance with medication dispensing and is needing support to drive herto appointments and to the store. Is hoping to go to [employer] a few times a week as well. [...] UTIs and followed with a urologist in [place]. Denies abdominal pain, fever, chills, or dark/foul [...] GERIATRICS - Reviewed concept of neurochemical imbalance [facility] depression/anxiety, treatment options and benefits of counseling in combination with medication. Also reviewed benefits of sleep hygeine, diet and exercise - Follow-up in 3 months or sooner as needed - Instructed patient to contact office or [id number] after-hours promptly should condition worsen or any new symptoms appear. - [facility] and after hours crisis line 3. [...] on exam table due to balance - NON-[facility] - CONSULT TO GERIATRICS 5. Ambulates with cane - ICD9: V46.8, ICD10: Z99.89 As above - NON-[facility] - CONSULT TO GERIATRICS 6. Concern about memory - ICD9: V65.5, ICD10: Z71.1 Patient denies but did have moments of not remembering past information correctly. Daughter feels memory is a concern. - lives alone so needs medication dispenser to help patient appropriately take her medications. - NON-[facility] - COMPREHENSIVE METABOLIC [...] for her to independently bathe herself. - NON-[facility] - CONSULT TO [...] symptoms occur. Patient agreeable to treatment plan. Lawrence Salinas APRN.CNP documented in this encounter[facility] summary Author Domingo Darby [facility] Note Date/Time May 17, 2025 11:3 3am [facility] Medical Records Department [address] [place] [address] Emergency Department Summary 05/17/25 MR#: [id number] Acct: [id number] Name: MICHAELA BRANDT #:[id number] : 1940 84 From: Domingo Darby MD PCP: Dr. Anaid Santiago MD Status:REG E R Location: ED [...] her occupational and physical therapy and some residential. They also have cameras in and keep [...] Prior similar symptoms: Yes Recent Illness/Hospitalization: Yes [facility] Medical History Closed intertrochanteric fracture of [...] MDM MDM Narrative Medical decision making narrative: [id number] female with dementia lives at home with [...] 78.8 H Lymph % (Auto) 14.1 L Beltrami % (Auto) 5.1 Eos % (Auto) 0.9 Baso % (Auto) 0.6 Absolute Neuts (auto) 6.9 Absolute Lymphs (auto) 1.24 Nucleated RBC % 0 Sodium 142 Potassium 3.9 Chloride 104 Carbon Dioxide 26.5 Anion Gap 12 BUN 15 Creatinine 0.96 Est GFR (MDRD) Non-Af 58 L BUN/Creatinine Ratio 15.6 Glucose 97 Calcium 9.0 Urine Color Yellow Urine Clarity Clear Urine pH 6.0 Ur Specific Dulce 1.020 Urine Protein 30 H Urine Glucose [...] 500 mg PO DAILY Primary Care Provider: Anaid Santiago Referrals: Anaid Santiago MD [Primary Care Provider] - As Needed Activity Restrictions/Additional Instructions: Plenty of fluids and cranberry juice. It appears that she has a UTI. Urine culture was sent. She will be started on antibiotic Keflex 1 pill 4 times a day for 1 week. Follow-up with your doctor if not improving or return if worse. Print Language: Macanese Disposition Disposition: Home, Self Care What to do if you have Problems For any increased pain, shortness of breath, bleeding, nausea or vomiting, chestpain, or any unexpected problems, contact your Primary Care Provider. Call [facility] ([phone]) or report to the closest Emergency Room. Call 911 if necessary. 05/17/25 1133 <Electronically signed by Domingo Darby MD> Cosigner Signature (if applicable): CC: Dr. Anaid Santiago MD ~ Signed [facility] Work Phone: Evaluation + Plan note No data available for this section [facility] Evaluation note* Diagnosis Onset Date Resolution Status Osteoarthritis of knees, bilateral noneactive [facility] Work Phone: [facility]* Diagnosis Encounter to establish care- Primary [...] Other urinary problems documented in this encounter [facility] note* Diagnosis Hypothyroidism, unspecified type documented in this encounter [facility] note* Diagnosis Hypothyroidism, unspecified type documented in this encounter [facility] note* Diagnosis Anxiety and depression Dysthymic disorder [facility] Diagnosis Anxiety and depression Dysthymic disorder [facility]* Diagnosis Cognitive impairment, mild, so stated- Primary Mild cognitive impairment, so stated Self-catheterizes urinary bladder Other specified conditions influencing health status Balance disorder Other symptoms involving nervous and musculoskeletal systems Concern about memory Anxiety and depression Dysthymic disorder Assistance needed for bathing Ambulates with cane documented in this encounter [facility] note* Diagnosis Anxiety and depression Dysthymic disorder [facility]* Diagnosis Anxiety and depression Dysthymic disorder documented [facility]* Diagnosis Retention of urine, unspecified- Primary Self-catheterizes urinary bladder Other specified conditions influencing health status Urinary problem Other urinary problems [facility]* Diagnosis Anxiety and depression Dysthymic disorder documented [facility]* Diagnosis Ambulatory dysfunction- Primary Difficulty in walking documented in this encounter [facility] note* Diagnosis Anxiety and depression Dysthymic disorder documented [facility]* Diagnosis Cognitive impairment, mild, so stated Mild cognitive impairment, so stated documented in this encounter [facility]* Diagnosis Anxiety and depression Dysthymic disorder documented in [facility]* Diagnosis 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, psychotic disturbance, mood disturbance, or anxiety (HCC)- Primary Impacted cerumen, right ear Insomnia due to mental disorder Generalized anxiety disorder documented in this encounter [facility] note* Diagnosis Impacted cerumen of right ear- Primary Impacted cerumen documented [facility] this encounter [facility]* Diagnosis Recurrent UTI (urinary tract infection)- Primary Urinary tract infection, site not specified documented in this encounter [facility]* Diagnosis Urinary frequency- Primary documented in this encounter [facility]* Diagnosis Anxiety and depression Dysthymic disorder documented in [facility] encounter [facility]* Diagnosis 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, psychotic disturbance, mood disturbance, or anxiety ([facility])- Primary Ambulatory dysfunction Difficulty in walking documented in this encounter [facility]* Diagnosis Onset Date Resolution Status Admit Date Acute pain of left knee acute A pril 2024 1:47pm Closed intertrochanteric fra cture of left hip acute March 01, 2025 1:47pm Fall acute March 01 1:47pm [facility] Work Phone: Evaluation note* Diagnosis Ambulatory dysfunction- Primary Difficulty in walking Weakness of both lower extremities Balance disorder Other symptoms involving nervous and musculoskeletal systems S/P hip hemiarthroplasty Hip joint replacement by other means Closed fracture of left hip with delayed healing, subsequent encounter 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) Pressure injury of sacral region, unstageable ([facility]) Urinary catheter in place Other postprocedural status Malnutrition, unspecified type ([facility]) Anxiety and depression Dysthymic disorder Insomnia, unspecified type Acute deep vein thrombosis (DVT) of proximal vein of left lower extremity (HCC) Chronic anticoagulation Long-term (current) use of anticoagulants Pressure injury of left buttock, stage 3 ([facility]) documented in this encounter [facility]* Diagnosis Onychomycosis- Primary Dermatophytosis of nail documented in this encounter [facility]* Diagnosis Hypothyroidism, unspecified type Anxiety and depression Dysthymic disorder documented in this encounter [facility]* Diagnosis Acute heart failure, unspecified [...] by other means documented in this encounter [facility]* Diagnosis Recurrent UTI- Primary Urinary tract [...] nail) Ingrowing nail documented in this encounter [facility]* Diagnosis Onychomycosis Dermatophytosis of nail documented in this encounter [facility]* Diagnosis Anxiety and depression Dysthymic disorder documented in this encounter [facility]* Diagnosis Pressure injury of right buttock, stage 2 (HCC)- Primary Chronic indwelling Lizarraga catheter Other postprocedural status Anxiety and depression Dysthymic disorder Lymphocytosis Lymphocytosis (symptomatic) Acute heart failure, unspecified heart failure type (HCC) Leukocytosis, unspecified type Recurrent falls Personal history of fall documented in this encounter [facility]* Diagnosis Hypothyroidism, unspecified type documented in this encounter [facility]* Diagnosis Hypothyroidism, unspecified type [facility] Author Cindy Molina [facility] Note Date/Time June 20, 2025 2:5 5pm [facility] Medical Records Department [address] [place] [address] H&P Exam - Hospitalist 06/20/25 1425 MR#: [id number] Acct: [id number] Name: MICHAELA BRANDT Rep #:[id number] : 1940 84 From: Cindy Molina MD PCP: Dr. Anaid Santiago MD Status:ADM I N Location: [facility] VL182-1 HPI - General General Date of Admission: 06/20/25 Date of Service: 06/20/25 Chief Complaint: Knee pain after fall HPI Narrative MICHAELA BRANDT, is a 84-year-old female history of hypothyroidism, dementia, urinary self catheterization, hypertension, depression, on Eliquis who presentedto [facility] ED 06/20/2025 after a fall. Reportedly [...] yet. No fevers or other acute complaints [facility] Medical History (Updated 06/20/25 @ 14:55 by [...] Narrative General: Alert, knows she is at [facility], initially thought year was 2028 but [...] 89.2 H, Lymph % (Auto) 3.5 L, Beltrami % (Auto) 5.6, Eos % (Auto) 0.0, [...] Clarity Clear, Urine pH 5.0, Ur Specific Dulce 1.015, Urine Protein 30 H, Urine Glucose [...] findings. Chronic findings as described. Reading Location: [facility] Cervical Spine CT 06/20/25 08:48 IMPRESSION: NO ACUTE CERVICAL FRACTURE. DEGENERATIVE CHANGES. Reading Location: [facility] Chest/Abdomen/Pelvis CT 06/20/25 08:48 IMPRESSION: CT chest: [...] ultrasound recommended for further evaluation. Reading Location: [facility] Elbow X-Ray 06/20/25 09:50 IMPRESSION: Osteopenia, no demonstrated fracture or joint space abnormalities Reading Location: 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 There is still evidence of fracture lucency and cortical irregularity. No hardware complication noted. 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 Reading Location: [facility] Knee X-Ray 06/20/25 09:50 IMPRESSION: Tricompartmental arthrosis with chondrocalcinosis, no demonstrated acute fracture or suspicious osseous lesion Surgical hardware in the patella from previous ORIF free of complication Reading Location: [facility] Knee X-Ray 06/20/25 09:50 IMPRESSION: DEGENERATIVE OSTEOARTHROSIS. NO ACUTE FINDINGS. Reading Location: [facility] Assessment & Plan Assessment/Plan (1) Fall: (2) [...] Molina MD Charges/Coding Visit Charges Inpatient E&M: 74942 Init Hosp L2 06/20/25 1555 <Electronically signed by Cindy Molina MD> Cosigner Signature (if applicable): CC: Dr. Anaid Santiago MD; Dr. Cindy Molina MD~ Signed [facility] Work Phone: Hospital Discharge instructionsAmbulatory Orders* Physical Therapy Referral Location: None [facility] Work Phone: Hospital Discharge instructionsAdditional Instructions Plenty of fluids and cranberry juice. It appears that she has a UTI. Urine culture was sent. She will be started on antibiotic Keflex 1 pill 4 times a day for 1 week. Follow-up with your doctor if not improving or return if worse.[facility] Work Phone: Hospital Discharge instructions No data available for this section [facility] Hospital Discharge instructionsAdditional Instructions UTI again. Urine culture will be sent. Started on the antibiotic Macrobid 1 pill twice a day for 10 days. Follow-up with your doctor to ensure you are improving. Plenty of fluids and rest. Return if worse.[facility] Work Phone: Progress note No data available for this section [facility] Reason for referral (narrative)No reason for referral information availableWGreene [facility] Work Phone: Reason for visit Narrative* MRI/CT (Routine) - Closed Specialty Diagnoses / Procedures Referred By Contkyle t Referred To Contact MR IMAGING Diagnoses Cognitive impairment, mild, so stated Procedures MRI BRAIN W QUANT WO IVCON MRI BRAIN BRAIN STEM W/O CONTRAST MATERIAL Anaid Santiago MD [address] [facility] [address] Phone: tel: fax: [place] [address] Referral ID Status Reason Start Date Expiration Date V isits Requested Visits Authorized [id number] Closed Auto-Generate d Referral 12/10/2024 01/09/2026 1 1 [facility] Summary Purpose Family History No Family History Records Found Relationship Condition Age at Onset Recorded Date/T aaliyah Not Specified Malignant neoplasm of prostate Unknown Relationship Condition Age at Onset Recorded Date/T aaliyah Not Specified Hypertension Unknown Advance Directives No Advanced Directives Records Found Advance Directive Response Recorded Date/ Time Advance Directives Yes October 6:36am Documents on File Type Date Recorded Patient Telephonic Rn Expl anation Advance Directive(s) 11/24/2024 11:36 AM Documents on File Type Date Recorded Patient Telephonic Rn Expl anation Advance Directive(s) 11/24/2024 11:36 AM Advance Directive Response Recorded Date/ Time Living Will Yes January 17, 2025 7:42pm Do you have a Healthcare Pow er of Commodity Broker? Yes January 17, 2025 7:42pm Name of Medical Power of Commodity Broker OSMANY REYES January 17, 2025 7:42pm Advance Directive Response Recorded Date/ Time Living Will Yes January 17, 2025 7:42pm Do you have a Healthcare Pow er of Commodity Broker? Yes January 17, 2025 7:42pm Name of Medical Power of Commodity Broker OSMANY REYES January 17, 2025 7:42pm Living Will No March 01, 2025 3:09pm Do you have a Healthcare Pow er of Commodity Broker? No March 01, 2025 3:09pm Advance Directive Response Recorded Date/ Time Living Will No March 05, 2025 10:51am Do you have a Healthcare Pow er of Commodity Broker? Yes March 05, 2025 10:51am Name of Medical Power of Commodity Broker OSMANY SHIN, DAUGHTER March 05, 2025 10:51a m Living Will Yes January 17, 2025 7:42pm Do you have a Healthcare Pow er of Commodity Broker? Yes January 17, 2025 7:42pm Name of Medical Power of Commodity Broker OSMANY SHIN January 17, 2025 7:42pm Living Will No March 01, 2025 3:09pm Do you have a Healthcare Pow er of Commodity Broker? No March 01, 2025 3:09pm Advance Directive Response Recorded Date/ Time Living Will No March 05, 2025 10:51am Do you have a Healthcare Pow er of Commodity Broker? Yes March 05, 2025 10:51am Name of Medical Power of Commodity Broker OSMANY SHIN, DAUGHTER March 05, 2025 10:51a m Living Will Yes January 17, 2025 7:42pm Do you have a Healthcare Pow er of Commodity Broker? Yes January 17, 2025 7:42pm Name of Medical Power of Commodity Broker OSMANY SHIN January 17, 2025 7:42pm Living Will No March 01, 2025 3:09pm Do you have a Healthcare Pow er of Commodity Broker? No March 01, 2025 3:09pm Do you have a Healthcare Pow er of Commodity Broker? Yes May 17, 2025 9:33am Advance Directive Response Recorded Date/ Time Living Will No March 05, 2025 10:51am Do you have a Healthcare Pow er of Commodity Broker? Yes March 05, 2025 10:51am Name of Medical Power of Commodity Broker OSMANY SHIN, DAUGHTER March 05, 2025 10:51am Living Will No March 01, 2025 3:09pm Do you have a Healthcare Pow er of Commodity Broker? No March 01, 2025 3:09pm Do you have a Healthcare Pow er of Commodity Broker? Yes May 17, 2025 9:33am Advance Directive Response Recorded Date/ Time Living Will No March 05, 2025 10:51am Do you have a Healthcare Pow er of Commodity Broker? Yes March 05, 2025 10:51am Name of Medical Power of Commodity Broker OSMANY SHIN, DAUGHTER March 05, 2025 10:51am Do you have a Healthcare Pow er of Commodity Broker? No June 20, 2025 8:34am Living Will No March 01, 2025 3:09pm Do you have a Healthcare Pow er of Commodity Broker? No March 01, 2025 3:09pm Do you have a Healthcare Pow er of Commodity Broker? Yes May 17, 2025 9:33am Advance Directive Response Recorded Date/ Time Do you have a Healthcare Power of Commodity Broker? No June 20, 2025 3:47pm Do you have a Healthcare Power of Commodity Broker? Yes May 17, 2025 9:33am Do you have a Healthcare Power of Commodity Broker? No July 31, 2025 8:39pm Advance Directive Response Recorded Date/ Time Do you have a Healthcare Power of Commodity Broker? No June 20, 2025 3:47pm Do you have a Healthcare Power of Commodity Broker? Yes May 17, 2025 9:33am Do you have a Healthcare Power of Commodity Broker? No July 31, 2025 8:39pm Do you have a Healthcare Power of Commodity Broker? Yes 2025 11:17am Chief Complaint and Reason for Visit Chief [...] 8:4 1am LABWORK March 23, 2025 5:00am [facility] LAB WORK March 30, 2025 5:0 0am [facility] LAB WORK April 06, 2025 4:0 0am [...] 8:4 1am LABWORK March 23, 2025 5:00am [facility] LAB WORK March 30, 2025 5:0 0am [facility] LAB WORK April 06, 2025 4:0 0am [...] 5:00am ADMISSION EXAM March 24, 2025 5:00pm [facility] LAB WORK March 30, 2025 5:0 0am [facility] LAB WORK April 06, 2025 4:0 0am [...] 5:00am ADMISSION EXAM March 24, 2025 5:00pm [facility] LAB WORK March 30, 2025 5:0 0am NEW CONCERN March 30, 2025 4:30p m [facility] LAB WORK April 06, 2025 4:0 0am [...] 5:00am ADMISSION EXAM March 24, 2025 5:00pm [facility] LAB WORK March 30, 2025 5:0 0am NEW CONCERN March 30, 2025 4:30p m [facility] LAB WORK April 06, 2025 4:0 0am [...] 5:00am ADMISSION EXAM March 24, 2025 5:00pm [facility] LAB WORK March 30, 2025 5:0 0am NEW CONCERN March 30, 2025 4:30p m [facility] LAB WORK April 06, 2025 4:0 0am [...] Self-catheterizes urinary bladder June 20, 2025 2:26pm Chief Complaint Admit Date [facility] LAB WORK April 06, 2025 4:0 0am DISCHARGE EXAM April 17, 2025 1:30p m confusion May 17, 2025 9:31 am FALL AND UTI June 20, 2025 2:2 6pm FALL AND UTI June 21, 2025 10: 51am FALL AND UTI June 22, 2025 6:4 6pm FALL AND UTI June 23, 2025 3:1 1pm FALL AND UTI June 24, 2025 5:3 3pm FALL AND UTI June 25, 2025 1:2 1pm [facility] LAB WORK June 30, 2025 4:00am wound July 22, 2025 12:39pm wound July 29, 2025 9:30am wound July 29, 2025 11:36am gu complaint July 31, 2025 6:06pm Reason for Visit Admit Date Abnormal finding on urinalysis June 2:26pm Fall June 20, 2025 2:2 6pm Generalized weakness June 20, 2025 2: 26pm Self-catheterizes urinary bladder June 20, 2025 2:26pm Decubitus ulcer of buttock, stage 2 Sept emb2024 9:30am Decubitus ulcer of left buttock, stage 2 July 29, 2025 9:30am Decubitus ulcer of sacral area July 29, 2025 9:30am Fecal incontinence July 29, 2025 9:30am Urinary retention July 29, 2025 9:30am Chief Complaint Admit Date confusion May 17, 2025 9:31 am FALL AND UTI June 20, 2025 2:2 6pm FALL AND UTI June 21, 2025 10: 51am FALL AND UTI June 22, 2025 6:4 6pm FALL AND UTI June 23, 2025 3:1 1pm FALL AND UTI June 24, 2025 5:3 3pm FALL AND UTI June 25, 2025 1:2 1pm [facility] LAB WORK June 30, 2025 4:00am wound July 22, 2025 12:39pm wound July 29, 2025 11:36am gu complaint July 31, 2025 6:06pm wound August 05, 2025 9:30am wound August 05, 2025 1:11pm HALLUCINATIONS 2025 10:51am Reason for Visit Admit Date Abnormal finding on urinalysis June 2:26pm Fall June 20, 2025 2:2 6pm Generalized weakness June 20, 2025 2: 26pm Self-catheterizes urinary bladder June 20, 2025 2:26pm Decubitus ulcer of buttock, stage 2 Jul 9:30am Decubitus ulcer of left buttock, stage 2 August 05, 2025 9:30am Decubitus ulcer of sacral area August 05, 2025 9:30am Fecal incontinence August 05, 2025 9:30am Urinary retention August 05, 2025 9:30am Reason for Referral Specialty Diagnoses / Procedures Referred By Contac t Referred To Contact Gerontology Diagnoses Self-catheterizes urinary bladder Balance disorder Concern about memory Anxiety and depression Assistance needed for bathing Ambulates with cane Procedures CONSULT TO GERIATRICS OFFICE/OUTPATIENT [facility] 60 MINUTES Lawrence Salinas APRN.CNP [address] [place] [address] Referral ID Status Reason Start Date Expiration Date Visits Requested Visits Authorized [id number] Authorized PCP Requested Referral 4 11/05/2025 1 1 Specialty Diagnoses / Procedures Referred By Contac t Referred To Contact Urology Diagnoses Self-catheterizes urinary bladder Unable to void Urinary problem Procedures CONSULT TO UROLOGY OFFICE/OUTPATIENT [facility] 60 MINUTES Lawrence Salinas APRN.INSIGHT DIRECTOR [address] [place] [address] Referral ID Status Reason Start Date Expiration Date Visits Requested Visits Authorized [id number] Authorized PCP Requested Referral 4 11/05/2025 1 1 Specialty Diagnoses / Procedures Referred By Contac t Referred To Contact MR IMAGING Diagnoses Cognitive impairment, mild, so stated Procedures MRI BRAIN W QUANT WO IVCON MRI BRAIN BRAIN STEM W/O CONTRAST MATERIAL Anaid Santiago MD [address] [place] [address] [place] [address] Referral ID Status Reason Start Date Expiration Date Visits Requested Visits Authorized [id number] New Request Auto-Generat ed Referral 12/10/2024 01/09/2026 1 1 Additional Source Comments INFORMATION SOURCE (unrecogn ized section and content) DATE CREATED AUTHOR 12/22/2022 [facility] DATE CREATED AUTHOR AUTHOR'S ORGANIZ ATION 01/31/2024 [facility] DATE CREATED AUTHOR AUTHOR'S ORGANIZ ATION 01/26/2025 [facility] DATE CREATED AUTHOR AUTHOR'S ORGANIZ ATION 08/03/2025 [facility] DATE CREATED AUTHOR AUTHOR'S ORGANIZ ATION 08/25/2025 [facility] DATE CREATED AUTHOR AUTHOR'S ORGANIZ ATION 09/04/2025 [facility] Care Teams (unrecognized sec tion and content) Team Status: Active Member Role Status Dates Ludin Richey MD Primary Care Provider Active Team Status: Inactive Member Role Status Dates Ludin Richey MD Primary Care Provider Active St art: January 17, 2024 End: January 17, 2024 Ludin Suarez MD Attending Provider Active Start: January 17, 2024 End: January 17, 2024 Industrial Safety Engineer Relationship Specialty Start Date End Date Anaid Santiago MD [address] [place] [address] PCP - General Internal Medicine 11/05/24 Industrial Safety Engineer Relationship Specialty Start Date End Date Anaid Santiago MD [address] [place] [address] PCP - General Internal Medicine 11/05/24 Industrial Safety Engineer Relationship Specialty Start Date End Date Anaid Santiago MD [address] [place] [address] PCP - General Internal Medicine 11/05/24 Industrial Safety Engineer Relationship Specialty Start Date End Date Anaid Santiago MD [address] [place] [address] PCP - General Internal Medicine 11/05/24 Industrial Safety Engineer Relationship Specialty Start Date End Date Anaid Santiago MD [address] [place] [address] PCP - General Internal Medicine 11/05/24 Industrial Safety Engineer Relationship Specialty Start Date End Date Anaid Santiago MD [address] [place] [address] PCP - General Internal Medicine 11/05/24 Industrial Safety Engineer Relationship Specialty Start Date End Date Anaid Santiago MD [address] [place] [address] PCP - General Internal Medicine 11/05/24 Industrial Safety Engineer Relationship Specialty Start Date End Date Anaid Santiago MD [address] [place] [address] PCP - General Internal Medicine 11/05/24 Industrial Safety Engineer Relationship Specialty Start Date End Date Anaid Santiago MD [address] [place] [address] PCP - General Internal Medicine 11/05/24 Industrial Safety Engineer Relationship Specialty Start Date End Date Anaid Santiago MD [address] [place] [address] PCP - General Internal Medicine 11/05/24 Industrial Safety Engineer Relationship Specialty Start Date End Date Anaid Santiago MD [address] [place] [address] PCP - General Internal Medicine 11/05/24 Industrial Safety Engineer Relationship Specialty Start Date End Date Anaid Santiago MD [address] [place] [address] PCP - General Internal Medicine 11/05/24 Industrial Safety Engineer Relationship Specialty Start Date End Date Anaid Santiago MD [address] [place] [address] PCP - General Internal Medicine 11/05/24 Lawrence Salinas APRN.INSIGHT DIRECTOR [address] [place] [address] Treatment Technician Internal Medicine 01/30/25 Industrial Safety Engineer Relationship Specialty Start Date End Date Anaid Santiago MD [address] [place] [address] PCP - General Internal Medicine 11/05/24 Lawrence Salinas APRN.INSIGHT DIRECTOR [address] [place] [address] Treatment Technician Internal Medicine 01/30/25 Industrial Safety Engineer Relationship Specialty Start Date End Date Anaid Santiago MD [address] [place] [address] PCP - General Internal Medicine 11/05/24 Lawrence Salinas APRN.INSIGHT DIRECTOR [address] [place] [address] Treatment Technician Internal Medicine 01/30/25 Industrial Safety Engineer Relationship Specialty Start Date End Date Anaid Santiago MD [address] [place] [address] PCP - General Internal Medicine 11/05/24 Lawrence Salinas APRN.INSIGHT DIRECTOR [address] [place] [address] Treatment Technician Internal Medicine 01/30/25 Industrial Safety Engineer Relationship Specialty Start Date End Date Anaid Santiago MD [address] [place] [address] PCP - General Internal Medicine 11/05/24 Lawrence Salinas APRN.INSIGHT DIRECTOR [address] [place] [address] Treatment Technician Internal Medicine 01/30/25 Industrial Safety Engineer Relationship Specialty Start Date End Date Anaid Santiago MD [address] [place] [address] PCP - General Internal Medicine 11/05/24 Lawrence Salinas APRN.INSIGHT DIRECTOR [address] [place] [address] Treatment Technician Internal Medicine 01/30/25 Team Status: Active Member Role Status Dates Dr. Anaid Santiago MD Primary Care Provider Active Team Status: Inactive Member Role Status Dates Dr. Vadim Florence DO Attending Provider Active Start: January 17, 2025 End: January 17, 2025 Dr. Vadim Florence DO Emergency Provider Active Start: January 17, 2025 End: January 17, 2025 Dr. Anaid Santiago MD Primary Care Provider Active Start: January 17, 2025 End: January 17, 2025 Team Status: Active Member Role Status Dates Dr. Anaid Santiago MD Primary Care Provider Active Start: March 01, 2025 Dr. Guerrero Valerio DO Emergency Provider Active Start: March 01, 2025 Dr. Roro Long , Admit Provider Active Start : March 01, 2025 Dr. Roro Long DO Attending Provider Active S tart: March 01, 2025 Industrial Safety Engineer Relationship Specialty Start Date End Date Anaid Santiago MD [address] [facility] [place] [address] PCP - General Internal Medicine 11/05/24 Older, Lawrence, PIPE FITTER.INSIGHT DIRECTOR [address] [place] [address] Treatment Technician Internal Medicine 01/30/25 Team Status: Inactive Member Role Status Dates Dr. Anaid Santiago MD Primary Care Provider Active Start: [...] Status: Active Member Role Status Dates Dr. Anaid Santiago MD Primary Care Provider Active Start: [...] Status: Active Member Role Status Dates Dr. Anaid Santiago MD Primary Care Provider Active Start: March 03, 2025 Dr. Guerrero Valerio DO Emergency Provider Active Start: March 03, 2025 Dr. Roro Long , Admit Provider Active Start : March 03, 2025 Dr. Roro Long , Other Provider Active Start : March 03, 2025 Dr. Boston Rosas DO Other Provider Active Start: March 03, 2025 Dr. Allison Tran MD Attending Provider Active Start: March 03, 2025 Dr. Allison Tran MD Other Provider Active St art: March 03, 2025 Team Status: Active Member Role Status Dates Dr. Anaid Santiago MD Primary Care Provider Active Start: March 04, 2025 Dr. Guerrero Valerio DO Emergency Provider Active Start: March 04, 2025 Dr. Roro Long DO Admit Provider Active Start : March 04, 2025 Dr. Roro Logn DO Other Provider Active Start : March 04, 2025 Dr. Boston Rosas DO Other Provider Active Start: March 04, 2025 Dr. Allison Tran MD Attending Provider Active Start: March 04, 2025 Dr. Allison Tran MD Other Provider Active St art: March 04, 2025 Team Status: Active Member Role Status Dates Dr. Anaid Santiago MD Primary Care Provider Active Start: March 04, 2025 Dr. Garfield Yo MD Admit Provider Active Star t: March 04, 2025 Dr. Garfield Yo MD Attending Provider Active Start: March 04, 2025 Team Status: Inactive Member Role Status Dates Dr. Anaid Santiago MD Primary Care Provider Active Start: March 09, 2025 End: March 09, 2025 Dr. Garfield Yo MD Attending Provider Active Start: March 09, 2025 End: March 09, 2025 Dr. Garfield Yo MD Referring Provider Active Start: March 09, 2025 End: March 09, 2025 Team Status: Active Member Role Status Dates Dr. Anaid Santiago MD Primary Care Provider Active Start: March 09, 2025 Dr. Vadim Estrada MD Attending Provider Active S tart: March 09, 2025 Industrial Safety Engineer Relationship Specialty Start Date End Date Anaid Santiago MD [address] [place] [address] PCP - General Internal Medicine 11/05/24 Lawrence Salinas APRN.INSIGHT DIRECTOR [address] [place] [address] Treatment Technician Internal Medicine 01/30/25 Industrial Safety Engineer Relationship Specialty Start Date End Date Anaid Santiago MD [address] [place] [address] PCP - General Internal Medicine 11/05/24 Lawrence Salinas APRN.INSIGHT DIRECTOR [address] [place] [address] Treatment Technician Internal Medicine 01/30/25 Industrial Safety Engineer Relationship Specialty Start Date End Date Anaid Santiago MD [address] [place] [address] PCP - General Internal Medicine 11/05/24 Lawrence Salinas APRN.INSIGHT DIRECTOR [address] [place] [address] Treatment Technician Internal Medicine 01/30/25 Industrial Safety Engineer Relationship Specialty Start Date End Date Anaid Santiago MD [address] [place] [address] PCP - General Internal Medicine 11/05/24 Lawrence Salinas APRN.INSIGHT DIRECTOR [address] [place] [address] Treatment Technician Internal Medicine 01/30/25 Industrial Safety Engineer Relationship Specialty Start Date End Date Anaid Santiago MD [address] [place] [address] PCP - General Internal Medicine 11/05/24 Older, Lawrence, PIPE FITTER.INSIGHT DIRECTOR [address] [place], [place] [address] Treatment Technician Internal Medicine 01/30/25 Industrial Safety Engineer Relationship Specialty Start Date End Date Anaid Santiago MD [address] [place], [place] [address] PCP - General Internal Medicine 11/05/24 Older, Lawrence, PIPE FITTER.INSIGHT DIRECTOR [address] [place], [place] [address] Treatment Technician Internal Medicine 01/30/25 Industrial Safety Engineer Relationship Specialty Start Date End Date Anaid Santiago MD [address] [place] [address] PCP - General Internal Medicine 11/05/24 Older, Lawrence, PIPE FITTER.INSIGHT DIRECTOR [address] [place], [place] [address] Treatment Technician Internal Medicine 01/30/25 Team Status: Inactive Member Role Status Dates Dr. Anaid Santiago MD Primary Care Provider Active Start: March 04, 2025 End: March 19, 2025 Dr. Garfield Yo MD Admit Provider Active Star t: March 04, 2025 End: March 19, 2025 Dr. Garfield Yo MD Attending Provider Active Start: March 04, 2025 End: March 19, 2025 Team Status: Active Member Role Status Dates Dr. Anaid Santiago MD Primary Care Provider Active Start: March 09, 2025 Dr. Vadim Estrada MD Attending Provider Active S tart: March 09, 2025 Dr. Garfield Yo MD Referring Provider Active Start: March 09, 2025 Team Status: Inactive Member Role Status Dates Dr. Anaid Santiago MD Primary Care Provider Active Start: March 23, 2025 End: March 23, 2025 Adele MEEHAN MD Attending Provider Active Start: March 23, 2025 End: March 23, 2025 Team Status: Inactive Member Role Status Dates Dr. Anaid Santiago MD Primary Care Provider Active Start: March 30, 2025 End: March 30, 2025 Daya MEEHAN NP-Keron Attending Provider Active Start: March 30, 2025 End: March 30, 2025 Team Status: Active Member Role Status Dates Dr. Anaid Santiago MD Primary Care Provider Active Start: April 06, 2025 Adele MEEHAN MD Attending Provider Active Start: April 06, 2025 Adele MEEHAN MD Referring Provider Active Start: April 06, 2025 Industrial Safety Engineer Relationship Specialty Start Date End Date Anaid Santiago MD [address] [place] [address] PCP - General Internal Medicine 11/05/24 Lawrence Salinas APRN.INSIGHT DIRECTOR [address] [place] [address] Treatment Technician Internal Medicine 01/30/25 Industrial Safety Engineer Relationship Specialty Start Date End Date Anaid Santiago MD [address] [facility], [place] [address] PCP - General Internal Medicine 11/05/24 Lawrence Salinas APRN.INSIGHT DIRECTOR [address] [place] [address] Treatment Technician Internal Medicine 01/30/25 Industrial Safety Engineer Relationship Specialty Start Date End Date Anaid Santiago MD [address] [facility], [place] [address] PCP - General Internal Medicine 11/05/24 Lawrence Salinas APRN.INSIGHT DIRECTOR [address] [place] [address] Treatment Technician Internal Medicine 01/30/25 Industrial Safety Engineer Relationship Specialty Start Date End Date Anaid Santiago MD [address] [facility] [place] [address] PCP - General Internal Medicine 11/05/24 Lawrence Salinas APRN.INSIGHT DIRECTOR [address] [place] [address] Treatment Technician Internal Medicine 01/30/25 Industrial Safety Engineer Relationship Specialty Start Date End Date Anaid Santiago MD [address] [place] [address] PCP - General Internal Medicine 11/05/24 Rita, ALEX Monge.INSIGHT DIRECTOR [address] [place] [address] Treatment Technician Internal Medicine 01/30/25 Team Status: Active Member Role/Relationship Status Dates Dr. Anaid Santiago MD Primary Care Provider Active Team Status: Inactive Member Role/Relationship Status Dates Dr. Vadim Florence DO Attending Provider Active Start: January 17, 2025 End: January 17, 2025 Dr. Vadim Florence DO Emergency Provider Active Start: January 17, 2025 End: January 17, 2025 Dr. Anaid Santiago MD Primary Care Provider Active Start: January 17, 2025 End: January 17, 2025 Team Status: Inactive Member Role/Relationship Status Dates Dr. Anaid Santiago MD Primary Care Provider Active Start: [...] Status: Active Member Role/Relationship Status Dates Dr. Anaid Santiago MD Primary Care Provider Active Start: [...] Status: Active Member Role/Relationship Status Dates Dr. Anaid Santiago MD Primary Care Provider Active Start: [...] Status: Active Member Role/Relationship Status Dates Dr. Anaid Santaigo MD Primary Care Provider Active Start: March [...] Status: Inactive Member Role/Relationship Status Dates Dr. Anaid Santiago MD Primary Care Provider Active Start: March 04, 2025 End: March 19, 2025 Dr. Garfield Yo MD Admit Provider Active Star t: March 04, 2025 End: March 19, 2025 Dr. Garfield Yo MD Attending Provider Active Start: March 04, 2025 End: March 19, 2025 Team Status: Inactive Member Role/Relationship Status Dates Dr. Anaid Santiago MD Primary Care Provider Active Start: March 09, 2025 End: March 09, 2025 Dr. Garfield Yo MD Attending Provider Active Start: March 09, 2025 End: March 09, 2025 Dr. Garfield Yo MD Referring Provider Active Start: March 09, 2025 End: March 09, 2025 Team Status: Active Member Role/Relationship Status Dates Dr. Anaid Santiago MD Primary Care Provider Active Start: March 09, 2025 Dr. Vadim Estrada MD Attending Provider Active S tart: March 09, 2025 Dr. Garfield Yo MD Referring Provider Active Start: March 09, 2025 Team Status: Inactive Member Role/Relationship Status Dates Dr. Anaid Santiago MD Primary Care Provider Active Start: March 23, 2025 End: March 23, 2025 Adele MEEHAN MD Attending Provider Active Start: March 23, 2025 End: March 23, 2025 Team Status: Inactive Member Role/Relationship Status Dates Dr. Anaid Santiago MD Primary Care Provider Active Start: March 30, 2025 End: March 30, 2025 ANA Gamez Attending Provider Active Start: March 30, 2025 End: March 30, 2025 Team Status: Active Member Role/Relationship Status Dates Dr. Anaid Santiago MD Primary Care Provider Active Start: April 06, 2025 Adele MEEHAN MD Attending Provider Active Start: April 06, 2025 Adele MEEHAN MD Referring Provider Active Start: April 06, 2025 Team Status: Inactive Member Role/Relationship Status Dates Dr. Anaid Santiago MD Primary Care Provider Active Start: May 17, 2025 End: May 17, 2025 Dr. Domingo Darby MD Emergency Provider Active S tart: May 17, 2025 End: May 17, 2025 Industrial Safety Engineer Relationship Specialty Start Date End Date Anaid Santiago MD [address] [facility] [address] PCP - General Internal Medicine 11/05/24 Older, Lawrence, PIPE FITTER.INSIGHT DIRECTOR [address] [place], [place] [address] Treatment Technician Internal Medicine 01/30/25 Team Status: Inactive Member Role/Relationship Status Dates Dr. Anaid Santiago MD Primary Care Provider Active Start: [...] Status: Active Member Role/Relationship Status Dates Dr. Anaid Santiago MD Primary Care Provider Active Start: [...] Status: Active Member Role/Relationship Status Dates Dr. Anaid Santiago MD Primary Care Provider Active Start: [...] Status: Active Member Role/Relationship Status Dates Dr. Anaid Santiago MD Primary Care Provider Active Start: [...] Status: Inactive Member Role/Relationship Status Dates Dr. Anaid Santiago MD Primary Care Provider Active Start: March 04, 2025 End: March 19, 2025 Dr. Garfield Yo MD Admit Provider Active Star t: March 04, 2025 End: March 19, 2025 Dr. Garfield Yo MD Attending Provider Active Start: March 04, 2025 End: March 19, 2025 Team Status: Inactive Member Role/Relationship Status Dates Dr. Anaid Santiago MD Primary Care Provider Active Start: March 09, 2025 End: March 09, 2025 Dr. Garfield Yo MD Attending Provider Active Start: March 09, 2025 End: March 09, 2025 Dr. Garfield Yo MD Referring Provider Active Start: March 09, 2025 End: March 09, 2025 Team Status: Active Member Role/Relationship Status Dates Dr. Anaid Santiago MD Primary Care Provider Active Start: March 09, 2025 Dr. Vadim Estrada MD Attending Provider Active S tart: March 09, 2025 Dr. Garfield Yo MD Referring Provider Active Start: March 09, 2025 Team Status: Inactive Member Role/Relationship Status Dates Dr. Anaid Santiago MD Primary Care Provider Active Start: March 23, 2025 End: March 23, 2025 Adele MEEHAN MD Attending Provider Active Start: March 23, 2025 End: March 23, 2025 Team Status: Inactive Member Role/Relationship Status Dates Dr. Anaid Santiago MD Primary Care Provider Active Start: March 24, 2025 End: March 24, 2025 Dr. Adele Gusman MD Attending Provider Active Start: March 24, 2025 End: March 24, 2025 Team Status: Inactive Member Role/Relationship Status Dates Dr. Anaid Santiago MD Primary Care Provider Active Start: May 17, 2025 End: May 17, 2025 Dr. Domingo Darby MD Attending Provider Active S tart: May 17, 2025 End: May 17, 2025 Dr. Domingo Darby MD Emergency Provider Active S tart: May 17, 2025 End: May 17, 2025 Team Status: Inactive Member Role/Relationship Status Dates Dr. Anaid Santiago MD Primary Care Provider Active Start: March 30, 2025 End: March 30, 2025 Daya Morgan STERILE PROCESSING TECH, STERILE PROCESSING TECH-C Attending Provider Active Start: March 30, 2025 End: March 30, 2025 Team Status: Active Member Role/Relationship Status Dates Dr. Anaid Santiago MD Primary Care Provider Active Start: April 06, 2025 Adele MEEHAN MD Attending Provider Active Start: April 06, 2025 Adele MEEHAN MD Referring Provider Active Start: April 06, 2025 Team Status: Inactive Member Role/Relationship Status Dates Dr. Anaid Santiago MD Primary Care Provider Active Start: May 17, 2025 End: May 17, 2025 Dr. Domingo Darby MD Attending Provider Active S tart: May 17, 2025 End: May 17, 2025 Dr. Domingo Darby MD Emergency Provider Active S tart: May 17, 2025 End: May 17, 2025 Team Status: Inactive Member Role/Relationship Status Dates Dr. Anaid Santiago MD Primary Care Provider Active Start: April 17, 2025 End: April 17, 2025 Daya Morgan STERILE PROCESSING TECH, STERILE PROCESSING TECH-C Attending Provider Active Start: April 17, 2025 End: April 17, 2025 Team Status: Inactive Member Role/Relationship Status Dates Dr. Anaid Santiago MD Primary Care Provider Active Start: May 17, 2025 End: May 17, 2025 Dr. Domingo Darby MD Attending Provider Active S tart: May 17, 2025 End: May 17, 2025 Dr. Domingo Darby MD Emergency Provider Active S tart: May 17, 2025 End: May 17, 2025 Industrial Safety Engineer Relationship Specialty Start Date End Date Anaid Santiago MD [address] [place], [place] [address] PCP - General Internal Medicine 11/05/24 Lawrence Salinas APRN.INSIGHT DIRECTOR [address] [place] [address] Treatment Technician Internal Medicine 01/30/25 Industrial Safety Engineer Relationship Specialty Start Date End Date Anaid Santiago MD [address] [place] [address] PCP - General Internal Medicine 11/05/24 Lawrence Salinas APRN.INSIGHT DIRECTOR [address] [place] [address] Treatment Technician Internal Medicine 01/30/25 Team Status: Active Member Role/Relationship Status Dates Dr. Anaid Santiago MD Primary Care Provider Active Start: June 20, 2025 Dr. Wesley Jones DO Emergency Provider Active Start: June 20, 2025 Dr. Cindy Molina MD Admit Provider Active Star t: June 20, 2025 Dr. Cindy Molina MD Attending Provider Active Start: June 20, 2025 Dr. Cindy Molina MD Other Provider Active Star t: June 20, 2025 Industrial Safety Engineer Relationship Specialty Start Date End Date Anaid Santiago MD [address] [place] [address] PCP - General Internal Medicine 11/05/24 Lawrence Salinas APRN.INSIGHT DIRECTOR [address] [place] [address] Treatment Technician Internal Medicine 01/30/25 Industrial Safety Engineer Relationship Specialty Start Date End Date Anaid Santiago MD [address] [place] [address] PCP - General Internal Medicine 11/05/24 Lawrence Salinas APRN.INSIGHT DIRECTOR [address] [facility] [address] Treatment Technician Internal Medicine 01/30/25 Industrial Safety Engineer Relationship Specialty Start Date End Date Anaid Santiago MD [address] [place] [address] PCP - General Internal Medicine 11/05/24 Lawrence Salinas APRN.INSIGHT DIRECTOR [address] [facility] [address] Treatment Technician Internal Medicine 01/30/25 Industrial Safety Engineer Relationship Specialty Start Date End Date Anaid Santiago MD [address] [place] [address] PCP - General Internal Medicine 11/05/24 Lawrence Salinas APRN.INSIGHT DIRECTOR [address] [place] [address] Treatment Technician Internal Medicine 01/30/25 Industrial Safety Engineer Relationship Specialty Start Date End Date Anaid Santiago MD [address] [facility] [place] [address] PCP - General Internal Medicine 11/05/24 Older, BERNICE MongeN.INSIGHT DIRECTOR [address] [place] [address] Treatment Technician Internal Medicine 01/30/25 Team Status: Active Member Role/Relationship Status Dates Dr. Anaid Santiago MD Primary Care Provider Active Start: April 06, 2025 Adele MEEHAN MD Attending Provider Active Start: April 06, 2025 Adele MEEHAN MD Referring Provider Active Start: April 06, 2025 Team Status: Inactive Member Role/Relationship Status Dates Dr. Anaid Santiago MD Primary Care Provider Active Start: April 17, 2025 End: April 17, 2025 Daya Morgan STERILE PROCESSING TECH, STERILE PROCESSING TECH-C Attending Provider Active Start: April 17, 2025 End: April 17, 2025 Team Status: Inactive Member Role/Relationship Status Dates Dr. Anaid Santiago MD Primary Care Provider Active Start: May 17, 2025 End: May 17, 2025 Dr. Domingo aDrby MD Attending Provider Active S tart: May 17, 2025 End: May 17, 2025 Dr. Domingo Darby MD Emergency Provider Active S tart: May 17, 2025 End: May 17, 2025 Team Status: Inactive Member Role/Relationship Status Dates Dr. Anaid Santiago MD Primary Care Provider Active Start: June 20, 2025 End: June 25, 2025 Dr. Wesley Jones DO Emergency Provider Active Start: June 20, 2025 End: June 25, 2025 Dr. Cindy Molina MD Admit Provider Active Star t: June 20, 2025 End: June 25, 2025 Dr. Cindy Molina MD Other Provider Active Star t: June 20, 2025 End: June 25, 2025 Dr. Bill Vieira DO Attending Provider Active Start: June 20, 2025 End: June 25, 2025 Team Status: Active Member Role/Relationship Status Dates Dr. Anaid Santiago MD Primary Care Provider Active Start: June 21, 2025 Dr. Wesley Jones DO Emergency Provider Active Start: June 21, 2025 Dr. Cindy Molina MD Admit Provider Active Star t: June 21, 2025 Dr. Cindy Molina MD Attending Provider Active Start: June 21, 2025 Dr. Cindy Molina MD Other Provider Active Star t: June 21, 2025 Team Status: Active Member Role/Relationship Status Dates Dr. Anaid Santiago MD Primary Care Provider Active Start: June 22, 2025 Dr. Wesley Jones DO Emergency Provider Active Start: June 22, 2025 Dr. Cindy Molina MD Admit Provider Active Star t: June 22, 2025 Dr. Cindy Molina MD Other Provider Active Star t: June 22, 2025 Dr. Bill Vieira DO Attending Provider Active Start: June 22, 2025 Dr. Bill Vieira DO Other Provider Active S tart: June 22, 2025 Team Status: Active Member Role/Relationship Status Dates Dr. Anaid Santiago MD Primary Care Provider Active Start: June 23, 2025 Dr. Wesley Jones DO Emergency Provider Active Start: June 23, 2025 Dr. Cindy Molina MD Admit Provider Active Star t: June 23, 2025 Dr. Cindy Molina MD Other Provider Active Star t: June 23, 2025 Dr. Bill Vieira DO Attending Provider Active Start: June 23, 2025 Dr. Bill Vieira DO Other Provider Active S tart: June 23, 2025 Team Status: Active Member Role/Relationship Status Dates Dr. nAaid Santiago MD Primary Care Provider Active Start: June 23, 2025 Dr. Vadim Estrada MD Attending Provider Active S tart: June 23, 2025 Dr. Bill Vieira DO Referring Provider Active Start: June 23, 2025 Team Status: Active Member Role/Relationship Status Dates Dr. Anaid Santiago MD Primary Care Provider Active Start: June 24, 2025 Dr. Wesley Jones DO Emergency Provider Active Start: June 24, 2025 Dr. Cindy Molina MD Admit Provider Active Star t: June 24, 2025 Dr. Cindy Molina MD Other Provider Active Star t: June 24, 2025 Dr. Bill Vieira DO Attending Provider Active Start: June 24, 2025 Dr. Bill Vieira DO Other Provider Active S tart: June 24, 2025 Team Status: Active Member Role/Relationship Status Dates Dr. Anaid Santiago MD Primary Care Provider Active Start: June 25, 2025 Dr. Wesley Jones DO Emergency Provider Active Start: June 25, 2025 Dr. Cindy Molina MD Admit Provider Active Star t: June 25, 2025 Dr. Cindy Molina MD Other Provider Active Star t: June 25, 2025 Dr. Bill Vieira DO Attending Provider Active Start: June 25, 2025 Dr. Bill Vieira DO Other Provider Active S tart: June 25, 2025 Team Status: Active Member Role/Relationship Status Dates Dr. Anaid Santiago MD Primary Care Provider Active Start: June 30, 2025 Dr. Tanvir MEEHAN MD Attending Provider Active Start: June 30, 2025 Dr. Tanvir MEEHAN MD Referring Provider Active Start: June 30, 2025 Team Status: Active Member Role/Relationship Status Dates Dr. Anaid Santiago MD Primary Care Provider Active Start: July 22, 2025 Dr. Anaid Santiago MD Referring Provider Active Start: July 22, 2025 Lisa Lobato STERILE PROCESSING TECH, STERILE PROCESSING TECH-C Attending Provider Active Start: July 22, 2025 Lisa Lobato STERILE PROCESSING TECH, STERILE PROCESSING TECH-C Other Provider Active S tart: July 22, 2025 Team Status: Active Member Role/Relationship Status Dates Dr. Anaid Santiago MD Primary Care Provider Active Start: July 29, 2025 Dr. Anaid Santiago MD Referring Provider Active Start: July 29, 2025 Lisa Lobato STERILE PROCESSING TECH, STERILE PROCESSING TECH-C Attending Provider Active Start: July 29, 2025 Team Status: Active Member Role/Relationship Status Dates Dr. Anaid Santiago MD Primary Care Provider Active Start: July 29, 2025 Dr. Anaid Santiago MD Referring Provider Active Start: July 29, 2025 Lisa Lobato STERILE PROCESSING TECH, STERILE PROCESSING TECH-C Attending Provider Active Start: July 29, 2025 Lisa Lobato STERILE PROCESSING TECH, STERILE PROCESSING TECH-C Other Provider Active S tart: July 29, 2025 Team Status: Inactive Member Role/Relationship Status Dates Dr. Anaid Santiago MD Primary Care Provider Active Start: July 31, 2025 End: July 31, 2025 Dr. Reggie Chan MD Emergency Provider Active Sta rt: July 31, 2025 End: July 31, 2025 Team Status: Active Member Role/Relationship Status Dates Dr. Anaid Santiago MD Primary care physician Active Team Status: Inactive Member Role/Relationship Status Dates Dr. Anaid Santiago MD Primary care physician Active Start: May 17, 2025 End: May 17, 2025 Dr. Domingo Darby MD Attending physician Active Start: May 17, 2025 End: May 17, 2025 Dr. Domingo Darby MD Emergency Department Physician Ac tive Start: May 17, 2025 End: May 17, 2025 Team Status: Inactive Member Role/Relationship Status Dates Dr. Anaid Santiago MD Primary care physician Active Start: June 20, 2025 End: June 25, 2025 Dr. Wesley Jones DO Emergency Department Physician A ctive Start: June 20, 2025 End: June 25, 2025 Dr. Cindy Molina MD Admitting physician Active Start: June 20, 2025 End: June 25, 2025 Dr. Cindy Molina MD Nurse Practitioner Active Start: June 20, 2025 End: June 25, 2025 Dr. Bill Vieira DO Attending physician Active Start: June 20, 2025 End: June 25, 2025 Team Status: Active Member Role/Relationship Status Dates Dr. Anaid Santiago MD Primary care physician Active Start: June 21, 2025 Dr. Wesley Jones DO Emergency Department Physician A ctive Start: June 21, 2025 Dr. Cindy Molina MD Admitting physician Active Start: June 21, 2025 Dr. Cindy Molina MD Attending physician Active Start: June 21, 2025 Dr. Cindy Molina MD Nurse Practitioner Active Start: June 21, 2025 Team Status: Active Member Role/Relationship Status Dates Dr. Anaid Santiago MD Primary care physician Active Start: June 22, 2025 Dr. Wesley Jones DO Emergency Department Physician A ctive Start: June 22, 2025 Dr. Cindy Molina MD Admitting physician Active Start: June 22, 2025 Dr. Cindy Molina MD Nurse Practitioner Active Start: June 22, 2025 Dr. Bill Vieira DO Attending physician Active Start: June 22, 2025 Dr. Bill Vieira DO Nurse Practitioner Active Start: June 22, 2025 Team Status: Active Member Role/Relationship Status Dates Dr. Anaid Santiago MD Primary care physician Active Start: June 23, 2025 Dr. Wesley Jones DO Emergency Department Physician A ctive Start: June 23, 2025 Dr. Cindy Molina MD Admitting physician Active Start: June 23, 2025 Dr. Cindy Molina MD Nurse Practitioner Active Start: June 23, 2025 Dr. Bill Vieira DO Attending physician Active Start: June 23, 2025 Dr. Bill Vieira DO Nurse Practitioner Active Start: June 23, 2025 Team Status: Active Member Role/Relationship Status Dates Dr. Anaid Santiago MD Primary care physician Active Start: June 23, 2025 Dr. Vadim Estrada MD Attending physician Active Start: June 23, 2025 Dr. Bill Vieira DO Referring Provider Active Start: June 23, 2025 Team Status: Active Member Role/Relationship Status Dates Dr. Anaid Santiago MD Primary care physician Active Start: June 24, 2025 Dr. Wesley Jones DO Emergency Department Physician A ctive Start: June 24, 2025 Dr. Cindy Molina MD Admitting physician Active Start: June 24, 2025 Dr. Cindy Molina MD Nurse Practitioner Active Start: June 24, 2025 Dr. Bill Vieira DO Attending physician Active Start: June 24, 2025 Dr. Bill Vieira DO Nurse Practitioner Active Start: June 24, 2025 Team Status: Active Member Role/Relationship Status Dates Dr. Anaid Santiago MD Primary care physician Active Start: June 25, 2025 Dr. Wesley Jones DO Emergency Department Physician A ctive Start: June 25, 2025 Dr. Cindy Molina MD Admitting physician Active Start: June 25, 2025 Dr. Cindy Molina MD Nurse Practitioner Active Start: June 25, 2025 Dr. Bill Vieira DO Attending physician Active Start: June 25, 2025 Dr. Bill Vieira DO Nurse Practitioner Active Start: June 25, 2025 Team Status: Active Member Role/Relationship Status Dates Dr. Anaid Santiago MD Primary care physician Active Start: June 30, 2025 Dr. Tanvir MEEHAN MD Attending physician Active Start: June 30, 2025 Dr. Tanvir MEEHAN MD Referring Provider Active Start: June 30, 2025 Team Status: Active Member Role/Relationship Status Dates Dr. Anaid Santigao MD Primary care physician Active Start: July 22, 2025 Dr. Anaid Santiago MD Referring Provider Active Start: July 22, 2025 Lisa Lobato STERILE PROCESSING TECH, STERILE PROCESSING TECH-C Attending physician Active Start: July 22, 2025 Lisa Lobato STERILE PROCESSING TECH, STERILE PROCESSING TECH-C Nurse Practitioner Active Start: July 22, 2025 Team Status: Active Member Role/Relationship Status Dates Dr. Anaid Santiago MD Primary care physician Active Start: July 29, 2025 Dr. Anaid Santiago MD Referring Provider Active Start: July 29, 2025 Lisa Lobato STERILE PROCESSING TECH, STERILE PROCESSING TECH-C Attending physician Active Start: July 29, 2025 Lisa Lobato STERILE PROCESSING TECH, STERILE PROCESSING TECH-C Nurse Practitioner Active Start: July 29, 2025 Team Status: Inactive Member Role/Relationship Status Dates Dr. Anaid Santiago MD Primary care physician Active Start: July 31, 2025 End: July 31, 2025 Dr. Reggie Chan MD Attending physician Active St art: July 31, 2025 End: July 31, 2025 Dr. Reggie Chan MD Emergency Department Physician Active Start: July 31, 2025 End: July 31, 2025 Team Status: Inactive Member Role/Relationship Status Dates Dr. Anaid Santiago MD Primary care physician Active Start: August 05, 2025 End: August 18, 2025 Dr. Anaid Santiago MD Referring Provider Active Start: August 05, 2025 End: August 18, 2025 Lisa Lobato NP, STERILE PROCESSING TECH-C Attending physician Active Start: August 05, 2025 End: August 18, 2025 Team Status: Active Member Role/Relationship Status Dates Dr. Anaid Santiago MD Primary care physician Active Start: August 05, 2025 Dr. Anaid Santiago MD Referring Provider Active Start: August 05, 2025 Lisa Lobato STERILE PROCESSING TECH, STERILE PROCESSING TECH-C Attending physician Active Start: August 05, 2025 Lisa Lobato STERILE PROCESSING TECH, STERILE PROCESSING TECH-C Nurse Practitioner Active Start: August 05, 2025 Team Status: Inactive Member Role/Relationship Status Dates Dr. Anaid Santiago MD Primary care physician Active Start: 2025 End: 2025 Dr. Domingo Darby MD Emergency Departmen t Physician Active Start: 2025 End: 2025 Goals (unrecognized section and content) Goals may be documented in a n alternate sectionGoals may be documented in an alternate section No data available for this section Source Comments (unrecognize d section and content) In the event this informatio n is protected by the [facility] Confidentiality of Alcohol and Drug Abuse Patient Records regulations: The Federal rules restrict any use of the information to criminally investigate or prosecute any alcohol or drug abuse patient.[facility] the event this information is protected by the Federal Confidentiality of Alcohol and Drug Abuse Patient Records regulations: The Federal rules restrict any use of the information to criminally investigate or prosecute any alcohol or drug abuse patient.[facility] CenterIn the event this information is protected by the Federal Confidentiality of Alcohol and Drug Abuse Patient Records regulations: The Federal rules restrict any use of the information to criminally investigate or prosecute any alcohol or drug abuse patient.[facility] CenterIn the event this information is protected by the Federal Confidentiality of Alcohol and Drug Abuse Patient Records regulations: The Federal rules restrict any use of the information to criminally investigate or prosecute any alcohol or drug abuse patient.[facility] CenterIn the event this information is protected by the Federal Confidentiality of Alcohol and Drug Abuse Patient Records regulations: The Federal rules restrict any use of the information to criminally investigate or prosecute any alcohol or drug abuse patient.[facility] CenterIn the event this information is protected by the Federal Confidentiality of Alcohol and Drug Abuse Patient Records regulations: The Federal rules restrict any use of the information to criminally investigate or prosecute any alcohol or drug abuse patient.[facility] CenterIn the event this information is protected by the Federal Confidentiality of Alcohol and Drug Abuse Patient Records regulations: The Federal rules restrict any use of the information to criminally investigate or prosecute any alcohol or drug abuse patient.[facility] CenterIn the event this information is protected by the Federal Confidentiality of Alcohol and Drug Abuse Patient Records regulations: The Federal rules restrict any use of the information to criminally investigate or prosecute any alcohol or drug abuse patient.[facility] CenterIn the event this information is protected by the Federal Confidentiality of Alcohol and Drug Abuse Patient Records regulations: The Federal rules restrict any use of the information to criminally investigate or prosecute any alcohol or drug abuse patient.[facility] CenterIn the event this information is protected by the Federal Confidentiality of Alcohol and Drug Abuse Patient Records regulations: The Federal rules restrict any use of the information to criminally investigate or prosecute any alcohol or drug abuse patient.[facility] CenterIn the event this information is protected by the Federal Confidentiality of Alcohol and Drug Abuse Patient Records regulations: The Federal rules restrict any use of the information to criminally investigate or prosecute any alcohol or drug abuse patient.[facility] CenterIn the event this information is protected by the Federal Confidentiality of Alcohol and Drug Abuse Patient Records regulations: The Federal rules restrict any use of the information to criminally investigate or prosecute any alcohol or drug abuse patient.[facility] CenterIn the event this information is protected by the Federal Confidentiality of Alcohol and Drug Abuse Patient Records regulations: The Federal rules restrict any use of the information to criminally investigate or prosecute any alcohol or drug abuse patient.[facility] CenterIn the event this information is protected by the Federal Confidentiality of Alcohol and Drug Abuse Patient Records regulations: The Federal rules restrict any use of the information to criminally investigate or prosecute any alcohol or drug abuse patient.[facility] CenterIn the event this information is protected by the Federal Confidentiality of Alcohol and Drug Abuse Patient Records regulations: The Federal rules restrict any use of the information to criminally investigate or prosecute any alcohol or drug abuse patient.[facility] CenterIn the event this information is protected by the Federal Confidentiality of Alcohol and Drug Abuse Patient Records regulations: The Federal rules restrict any use of the information to criminally investigate or prosecute any alcohol or drug abuse patient.[facility] CenterIn the event this information is protected by the Federal Confidentiality of Alcohol and Drug Abuse Patient Records regulations: The Federal rules restrict any use of the information to criminally investigate or prosecute any alcohol or drug abuse patient.[facility] CenterIn the event this information is protected by the Federal Confidentiality of Alcohol and Drug Abuse Patient Records regulations: The Federal rules restrict any use of the information to criminally investigate or prosecute any alcohol or drug abuse patient.[facility] CenterIn the event this information is protected by the Federal Confidentiality of Alcohol and Drug Abuse Patient Records regulations: The Federal rules restrict any use of the information to criminally investigate or prosecute any alcohol or drug abuse patient.[facility] CenterIn the event this information is protected by the Federal Confidentiality of Alcohol and Drug Abuse Patient Records regulations: The Federal rules restrict any use of the information to criminally investigate or prosecute any alcohol or drug abuse patient.[facility] CenterIn the event this information is protected by the Federal Confidentiality of Alcohol and Drug Abuse Patient Records regulations: The Federal rules restrict any use of the information to criminally investigate or prosecute any alcohol or drug abuse patient.[facility] CenterIn the event this information is protected by the Federal Confidentiality of Alcohol and Drug Abuse Patient Records regulations: The Federal rules restrict any use of the information to criminally investigate or prosecute any alcohol or drug abuse patient.[facility] CenterIn the event this information is protected by the Federal Confidentiality of Alcohol and Drug Abuse Patient Records regulations: The Federal rules restrict any use of the information to criminally investigate or prosecute any alcohol or drug abuse patient.[facility] CenterIn the event this information is protected by the Federal Confidentiality of Alcohol and Drug Abuse Patient Records regulations: The Federal rules restrict any use of the information to criminally investigate or prosecute any alcohol or drug abuse patient.[facility] CenterIn the event this information is protected by the Federal Confidentiality of Alcohol and Drug Abuse Patient Records regulations: The Federal rules restrict any use of the information to criminally investigate or prosecute any alcohol or drug abuse patient.[facility] CenterIn the event this information is protected by the Federal Confidentiality of Alcohol and Drug Abuse Patient Records regulations: The Federal rules restrict any use of the information to criminally investigate or prosecute any alcohol or drug abuse patient.[facility] CenterIn the event this information is protected by the Federal Confidentiality of Alcohol and Drug Abuse Patient Records regulations: The Federal rules restrict any use of the information to criminally investigate or prosecute any alcohol or drug abuse patient.[facility] CenterIn the event this information is protected by the Federal Confidentiality of Alcohol and Drug Abuse Patient Records regulations: The Federal rules restrict any use of the information to criminally investigate or prosecute any alcohol or drug abuse patient.[facility] CenterIn the event this information is protected by the Federal Confidentiality of Alcohol and Drug Abuse Patient Records regulations: The Federal rules restrict any use of the information to criminally investigate or prosecute any alcohol or drug abuse patient.[facility] CenterIn the event this information is protected by the Federal Confidentiality of Alcohol and Drug Abuse Patient Records regulations: The Federal rules restrict any use of the information to criminally investigate or prosecute any alcohol or drug abuse patient.[facility] CenterIn the event this information is protected by the Federal Confidentiality of Alcohol and Drug Abuse Patient Records regulations: The Federal rules restrict any use of the information to criminally investigate or prosecute any alcohol or drug abuse patient.[facility] CenterIn the event this information is protected by the Federal Confidentiality of Alcohol and Drug Abuse Patient Records regulations: The Federal rules restrict any use of the information to criminally investigate or prosecute any alcohol or drug abuse patient.[facility] CenterIn the event this information is protected by the Federal Confidentiality of Alcohol and Drug Abuse Patient Records regulations: The Federal rules restrict any use of the information to criminally investigate or prosecute any alcohol or drug abuse patient.[facility] CenterIn the event this information is protected by the Federal Confidentiality of Alcohol and Drug Abuse Patient Records regulations: The Federal rules restrict any use of the information to criminally investigate or prosecute any alcohol or drug abuse patient.[facility] CenterIn the event this information is protected by the Federal Confidentiality of Alcohol and Drug Abuse Patient Records regulations: The Federal rules restrict any use of the information to criminally investigate or prosecute any alcohol or drug abuse patient.[facility] CenterIn the event this information is protected by the Federal Confidentiality of Alcohol and Drug Abuse Patient Records regulations: The Federal rules restrict any use of the information to criminally investigate or prosecute any alcohol or drug abuse patient.[facility] CenterIn the event this information is protected by the Federal Confidentiality of Alcohol and Drug Abuse Patient Records regulations: The Federal rules restrict any use of the information to criminally investigate or prosecute any alcohol or drug abuse patient.[facility] CenterIn the event this information is protected by the Federal Confidentiality of Alcohol and Drug Abuse Patient Records regulations: The Federal rules restrict any use of the information to criminally investigate or prosecute any alcohol or drug abuse patient.[facility] CenterIn the event this information is protected by the Federal Confidentiality of Alcohol and Drug Abuse Patient Records regulations: The Federal rules restrict any use of the information to criminally investigate or prosecute any alcohol or drug abuse patient.[facility] CenterIn the event this information is protected by the Federal Confidentiality of Alcohol and Drug Abuse Patient Records regulations: The Federal rules restrict any use of the information to criminally investigate or prosecute any alcohol or drug abuse patient.[facility] CenterIn the event this information is protected by the Federal Confidentiality of Alcohol and Drug Abuse Patient Records regulations: The Federal rules restrict any use of the information to criminally investigate or prosecute any alcohol or drug abuse patient.[facility] CenterIn the event this information is protected by the Federal Confidentiality of Alcohol and Drug Abuse Patient Records regulations: The Federal rules restrict any use of the information to criminally investigate or prosecute any alcohol or drug abuse patient.[facility] CenterIn the event this information is protected by the Federal Confidentiality of Alcohol and Drug Abuse Patient Records regulations: The Federal rules restrict any use of the information to criminally investigate or prosecute any alcohol or drug abuse patient.[facility] CenterIn the event this information is protected by the Federal Confidentiality of Alcohol and Drug Abuse Patient Records regulations: The Federal rules restrict any use of the information to criminally investigate or prosecute any alcohol or drug abuse patient.[facility] CenterIn the event this information is protected by the Federal Confidentiality of Alcohol and Drug Abuse Patient Records regulations: The Federal rules restrict any use of the information to criminally investigate or prosecute any alcohol or drug abuse patient.[facility] CenterIn the event this information is protected by the Federal Confidentiality of Alcohol and Drug Abuse Patient Records regulations: The Federal rules restrict any use of the information to criminally investigate or prosecute any alcohol or drug abuse patient.[facility] CenterIn the event this information is protected by the Federal Confidentiality of Alcohol and Drug Abuse Patient Records regulations: The Federal rules restrict any use of the information to criminally investigate or prosecute any alcohol or drug abuse patient.[facility] CenterIn the event this information is protected by the Federal Confidentiality of Alcohol and Drug Abuse Patient Records regulations: The Federal rules restrict any use of the information to criminally investigate or prosecute any alcohol or drug abuse patient.[facility] CenterIn the event this information is protected by the Federal Confidentiality of Alcohol and Drug Abuse Patient Records regulations: The Federal rules restrict any use of the information to criminally investigate or prosecute any alcohol or drug abuse patient.[facility] CenterIn the event this information is protected by the Federal Confidentiality of Alcohol and Drug Abuse Patient Records regulations: The Federal rules restrict any use of the information to criminally investigate or prosecute any alcohol or drug abuse patient.[facility] CenterIn the event this information is protected by the Federal Confidentiality of Alcohol and Drug Abuse Patient Records regulations: The Federal rules restrict any use of the information to criminally investigate or prosecute any alcohol or drug abuse patient.[facility] CenterIn the event this information is protected by the Federal Confidentiality of Alcohol and Drug Abuse Patient Records regulations: The Federal rules restrict any use of the information to criminally investigate or prosecute any alcohol or drug abuse patient.[facility] CenterIn the event this information is protected by the Federal Confidentiality of Alcohol and Drug Abuse Patient Records regulations: The Federal rules restrict any use of the information to criminally investigate or prosecute any alcohol or drug abuse patient.[facility] CenterIn the event this information is protected by the Federal Confidentiality of Alcohol and Drug Abuse Patient Records regulations: The Federal rules restrict any use of the information to criminally investigate or prosecute any alcohol or drug abuse patient.[facility] CenterIn the event this information is protected by the Federal Confidentiality of Alcohol and Drug Abuse Patient Records regulations: The Federal rules restrict any use of the information to criminally investigate or prosecute any alcohol or drug abuse patient.[facility] CenterIn the event this information is protected by the Federal Confidentiality of Alcohol and Drug Abuse Patient Records regulations: The Federal rules restrict any use of the information to criminally investigate or prosecute any alcohol or drug abuse patient.[facility] CenterIn the event this information is protected by the Federal Confidentiality of Alcohol and Drug Abuse Patient Records regulations: The Federal rules restrict any use of the information to criminally investigate or prosecute any alcohol or drug abuse patient.[facility] CenterIn the event this information is protected by the Federal Confidentiality of Alcohol and Drug Abuse Patient Records regulations: The Federal rules restrict any use of the information to criminally investigate or prosecute any alcohol or drug abuse patient.[facility] CenterIn the event this information is protected by the Federal Confidentiality of Alcohol and Drug Abuse Patient Records regulations: The Federal rules restrict any use of the information to criminally investigate or prosecute any alcohol or drug abuse patient.[facility] CenterIn the event this information is protected by the Federal Confidentiality of Alcohol and Drug Abuse Patient Records regulations: The Federal rules restrict any use of the information to criminally investigate or prosecute any alcohol or drug abuse patient.[facility] CenterIn the event this information is protected by the Federal Confidentiality of Alcohol and Drug Abuse Patient Records regulations: The Federal rules restrict any use of the information to criminally investigate or prosecute any alcohol or drug abuse patient.[facility] CenterIn the event this information is protected by the Federal Confidentiality of Alcohol and Drug Abuse Patient Records regulations: The Federal rules restrict any use of the information to criminally investigate or prosecute any alcohol or drug abuse patient.[facility] CenterIn the event this information is protected by the Federal Confidentiality of Alcohol and Drug Abuse Patient Records regulations: The Federal rules restrict any use of the information to criminally investigate or prosecute any alcohol or drug abuse patient.[facility] CenterIn the event this information is protected by the Federal Confidentiality of Alcohol and Drug Abuse Patient Records regulations: The Federal rules restrict any use of the information to criminally investigate or prosecute any alcohol or drug abuse patient.[facility] CenterIn the event this information is protected by the Federal Confidentiality of Alcohol and Drug Abuse Patient Records regulations: The Federal rules restrict any use of the information to criminally investigate or prosecute any alcohol or drug abuse patient.[facility] CenterIn the event this information is protected by the Federal Confidentiality of Alcohol and Drug Abuse Patient Records regulations: The Federal rules restrict any use of the information to criminally investigate or prosecute any alcohol or drug abuse patient.[facility] Reason for Visit (unrecogniz ed section and [...] OFFICE/OUTPATIENT NEW HIGH MDM 60 MINUTES 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 [address] [id number] Referral ID Status Reason Start Date Expiration Date V isits Requested Visits Authorized [id number] Closed PCP Requested Referral 11/05/2024 11/05/2025 1 [...] NEW HIGH MDM 60 MINUTES Older, ALEX Monge.INSIGHT DIRECTOR [address] [place] [address] Referral ID Status Reason Start Date Expiration Date V isits Requested Visits Authorized [id number] Closed PCP Requested Referral 11/05/2024 11/05/2025 1 [...] Comments Follow HH Reason Comments ER F/U [facility] 03/01/25 fall-lef t hip FX; 03/02/25 Left hip cephalomedullary nail fixation, 03/04/25 transferred to [facility] TCU for rehabilitation, 03/19/25 transferred to [facility] for continuing rehabilitation Reason Comments Patient Update Orders Reason Comments Request information from [facility] Reason Comments Swelling Reason Comments Patient Update [...] Contact Podiatry Diagnoses Onychomycosis Procedures OFFICE/OUTPATIENT [facility] MDM 60 MINUTES Anaid Santiago MD [address] [place] [address] Phone: tel: fax: Referral ID Status Reason Start Date Expiration Date V isits Requested Visits Authorized [id number] Closed PCP Requested Referral 04/24/2025 04/24/2026 1 1 Reason Onset Date Comments Refill Request 07/15/2025 Reason Onset Date Comments Refill Request 07/20/2025 Reason Comments Missed therapy appt Reason Comments delay of care for OT Reason Comments ST Plan of Care Reason Comments Catheter concern FOR RECORDS PERTAINING TO PATIENTS WHO ARE [...] BE BASED ON THE PRIMARY CLINICAL RECORDS. [employer] provides no warranty or guarantee of the accuracy or completeness of information in this document.
--- NOTE | 2025-09-10 06:18 | EX.ED.DYSGE1 ---
HPI History of Present Illness Chief Complaint: Lizarraga C/O Informant: patient and family Narrative Narrative: Patient is 85-year-old female with past medical history of anxiety depression dementia hypothyroidism and urinary retention. According to family she typically has a Lizarraga catheter. However it stopped draining last night and patient's been complaining of lower abdominal discomfort. Reportedly the family member tried to irrigate the catheter without any improvement and therefore she was brought to the ER for evaluation. Patient admits to lower abdominal pain and denies any other symptoms however this may be unreliable based on her history of dementia. [facility] Medical History Abnormal finding on urinalysis Generalized weakness Fall Closed intertrochanteric fracture of left hip Fall Hypothyroidism Anxiety Dementia Self-catheterizes urinary bladder Hypertension Back pain Home Medications Medication Instructions Recorded Last Taken Type ascorbic acid (vitamin C) 500 mg 500 mg PO DAILY supplement 03/01/25 08/17/25 History tablet (C-500) donepezil 10 mg tablet 10 mg PO DAILY dementia 03/01/25 08/17/25 History levothyroxine 50 mcg tablet 50 mcg PO DAILY thyroid 03/01/25 08/17/25 History trazodone 50 mg tablet 50 mg PO QHS anxiety 03/01/25 08/16/25 History buspirone 5 mg tablet 5 mg PO BID 06/20/25 08/17/25 History cholecalciferol (vitamin D3) 125 125 mcg PO DAILY 06/20/25 08/17/25 History mcg (5,000 unit) capsule citalopram 20 mg tablet 20 mg PO DAILY 07/22/25 08/17/25 History furosemide 20 mg tablet 20 mg PO .COMPLEX PRN swelling 07/22/25 Unknown History acetaminophen 500 mg tablet 1,000 mg PO Q8 PRN fever or pain 08/17/25 Unknown History clonazepam 0.5 mg tablet 0.5 mg PO Q8H PRN anxiety 08/17/25 08/16/25 History nitrofurantoin 100 mg PO BID uti 10 days #20 caps 08/17/25 Unknown Rx monohydrate/macrocrystals 100 mg capsule (Macrobid) Allergy/AdvReac Type Severity Reaction Status Date / Time No Known Allergies Allergy Verified 09/10/25 05:14 Family History Other Hypertension Surgical History H/O: hysterectomy Status post right knee replacement Social History household members: none housing: apartment current occupational status: retired other: Daughter lives a few doors down helps her on a regular basis Smoking Status: Never smoker alcohol intake: never substance use type: does not use ROS ROS ED ROS Narrative Please note review of systems may be unreliable secondary to patient's history of dementia Constitutional Constitutional ED: Denies chills or fever(s) ENT ENT ED: Denies sore throat Cardiovascular Cardiovascular: Denies chest pain Respiratory/Chest Respiratory/Chest: Denies cough or dyspnea Gastrointestinal Gastrointestinal: Reports abdominal pain; Denies diarrhea, nausea or vomiting Genitourinary Genitourinary ED: Reports other Details: Positive and urea Musculoskeletal Musculoskeletal: Denies back pain Integumentary Denies rash Neurologic Neurologic: Denies headache(s) Hematologic/Lymphatic Hematologic/Lymphatic: Denies easy bleeding or easy bruising EXAM Physical Exam Const Vital Signs: 09/10/25 05:16 Temperature 97.5 F L Temperature Source Oral Pulse Rate 66 Respiratory Rate 18 Blood Pressure 140/65 H Blood Pressure Mean 90 Pulse Ox 99 Oxygen Delivery Method Room Air Positive well nourished and well developed General Appearance ED: well developed; Negative for pallor HEENT HEENT Narrative: Normocephalic atraumatic Eyes PERRL and EOMs intact bilaterally General Eye ED: Negative for scleral icterus Neck supple Resp normal respiratory effort and clear to auscultation bilaterally Cardio regular rate and regular rhythm Rate: other Other Details: Radial and carotid pulses are equal and symmetric GI non-distended GI Narrative: There is pain on palpation in the suprapubic region. There is faint organomegaly at this site indicating potential urinary retention. The remainder the abdomen is soft nontender and nondistended with hypoactive bowel sounds. No pulsatile mass Auscultation: normoactive bowel sounds Palpation: soft Back/Spine no CVA tenderness Extremity normal to inspection Neuro CN's II-XII intact bilaterally Neuro Narrative: Patient is at her baseline mental status without focal neurologic deficit Sensorium / Orientation: orientation impaired Psych mental status grossly normal Skin General Skin Exam: Negative for jaundice or pallor MDM MDM MDM Narrative Medical decision making narrative: Patient arrived to ER hypertensive but has a past medical history of this and otherwise with stable vitals. According to family the Lizarraga catheter had no longer been draining overnight but was working normally prior to that. By physical exam she has findings concerning for mild urinary retention and therefore a bladder scan was performed in the ER indicating potentially 500 to 600 mL of urine within the bladder. As she is afebrile and the concern for retention is only been a few hours I have low concern for UTI/pyelonephritis or urosepsis. I also have low concern for acute kidney injury. Therefore I felt no need for laboratory studies. A Lizarraga catheter was placed and drained approximately 600 mL of urine consistent with a bladder scan. On reevaluation she reported feeling better and vitals remained stable. Therefore do not feel the need for further intervention or workup in the ER and the patient is otherwise safe for discharge History & Record Review Discussion w/independent historian: Patient and Family Discharge Plan Triage Chief Complaint: Lizarraga C/O ED Provider: Rufus Parsons Dx/Rx/DC Orders Clinical Impression: Urinary retention, Hypothyroidism, Dementia, Hypertension Instructions: ED Lizarraga Catheter, Care Prescriptions: No Action buspirone 5 mg tablet 5 mg PO BID cholecalciferol (vitamin D3) 125 mcg (5,000 unit) capsule 125 mcg PO DAILY citalopram 20 mg tablet 20 mg PO DAILY furosemide 20 mg tablet 20 mg PO .COMPLEX PRN (Reason: swelling) Rx Instructions: 20 mg orally 2xw PRN; trazodone 50 mg tablet 50 mg PO QHS donepezil 10 mg tablet 10 mg PO DAILY levothyroxine 50 mcg tablet 50 mcg PO DAILY ascorbic acid (vitamin C) [C-500] 500 mg tablet 500 mg PO DAILY clonazepam 0.5 mg Tablet 0.5 mg PO Q8H PRN (Reason: anxiety) Rx Instructions: family states only taking at hs acetaminophen 500 mg Tablet 1,000 mg PO Q8 PRN (Reason: fever or pain) nitrofurantoin monohyd/m-cryst [Macrobid] 100 mg capsule 100 mg PO BID 10 Days Qty: 20 0RF Rx Instructions: must administer with a meal/food Primary Care Provider: Anaid Luna Referrals: Anaid Luna MD [Primary Care Provider, Internal Medicine] Activity Restrictions/Additional Instructions: Please follow-up with your urologist to discuss if they want to leave the catheter in permanently or only for a few days. If you develop a fever the catheter is no longer draining or significant abdominal pain please return to the ER for repeat evaluation. Print Language: Swedish Disposition Disposition: Home, Self Care Discharge Date/Time: 09/10/25 06:56
[2025-09-10 06:55] VITALS: BP 148/67; PULSE 67; RESP 18; TEMP 36.8; O2SAT 98
== END 2025-09-10 06:56 | disposition home or self-care (01) ==
PROVIDERS: Emergency Provider Emergency Medicine; PCP Internal Medicine; Visit Provider Emergency Medicine
DX: R33.9 Retention of urine, unspecified (principal); F03.90 Unspecified dementia, unspecified severity, without behavioral disturbance, psychotic disturbance, mood disturbance, and anxiety; I10 Essential (primary) hypertension; E03.9 Hypothyroidism, unspecified; Z79.890 Hormone replacement therapy; Z79.899 Other long term (current) drug therapy
CPT/HCPCS: 51702; 99283

== ENCOUNTER → 2025-09-11 | Outpatient (CLI) | payer MEDICARE, SELFPAY ==
[2025-09-11 11:11] LABS: Red Blood Cells-Urine 0 SEEN /hpf (0-5)
[2025-09-11 11:52] LABS: Color, Urine Yellow (Yellow); Glucose, Dipstick Normal (Normal); Ketone-Dipstick Negative (Negative); Leukocyte Esterase-Dipstick 500 /ul (Negative); Nitrite-Dipstick Positive (Negative); Occult Blood-Urine 25 /ul (Negative); Protein-Dipstick 30 mg/dl (Negative); Specific Gravity, Urine 1.025 (1.002-1.030); Urine Bilirubin Dipstick Negative (Negative)
[2025-09-11 12:04] LABS: Calcium Oxalate Crystals Ur 1+ /hpf (<or=2+)
[2025-09-11 12:05] LABS: Mucous, Urine 1+ /hpf (<or=2+); Squamous Epithelial Cells - UA 0-5 SEEN /hpf (5-10)
== END | disposition home or self-care (01) ==
LOC: LABSPEC 11:05
PROVIDERS: PCP Internal Medicine; Referring Provider Internal Medicine; Visit Provider Internal Medicine
DX: R82.90 Unspecified abnormal findings in urine (principal)
CPT/HCPCS: 81001; 87077; 87086; 87088; 87186

== ENCOUNTER 2025-10-14 10:32 | Outpatient (RCR) | payer MEDICARE, SELFPAY ==
[2025-10-14 11:20] VITALS: BP 145/66; PULSE 71; RESP 18; TEMP 35.6
--- NOTE | 2025-10-14 11:47 | PCM.WC.PN ---
History of Present Illness Date of Service: 10/14/25 Chief Complaint: Follow-up on her bilateral buttocks open wounds from pressure. History of Wound: 84-year-old white female that apparently had fallen back in February and broke her hip had surgery went to a residential for rehab until about a week and a half ago and now lives with her daughter and son-in-law. He is the head of the [facility] and has brought her in today. He states she has a little bit of dementia but she does walk with her walker when prodded and eats okay and has been eating drinking boost at least once a day. 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 She also has incontinence of stool which is apparent on exam. She has a butterfly shaped open wound on her buttocks right and left into the coccyx. Son-in-law is not sure if this started in the hospital or at the residential but she was getting zinc oxide on her buttocks. They do not have a special mattress for her on her bed she does sit on a doughnut on her chair. Progress of Wound: Coccyx wound is healed patient will be discharged from the wound center Subjective Subjective Patient was very happy with outcomes Objective Data Objective Data No sign of infection all is healed patient will be discharged from the wound center Vital Signs: Vital Signs Temp Pulse Resp BP 96.1 F L 71 18 145/66 H 10/14/25 11:20 10/14/25 11:20 10/14/25 11:20 10/14/25 11:20 Physical Exam Const General Appearance: cooperative HEENT normocephalic Face and Sinus: normal facial exam External Ear: external ears normal Eyes PERRL General Eye: normal appearance of both eyes Neck full ROM General: normal visual inspection Resp normal respiratory effort Cardio regular rate and regular rhythm Palpation: normal PMI Rate: regular rate Rhythm: regular rhythm external exam normal Back/Spine Cervical Spine: cervical ROM normal Thoracic Spine / Upper Back: normal to inspection Lumbar Spine / Lower Back: normal to inspection Extremity normal to inspection Skin Wounds: wounds noted Wound Narrative: Butterfly shaped open wound superficial on bilateral right and left buttocks and sacral area Psych Appearance: grossly normal Speech: normal speech Debridement Note Debridement Note No debridement was completed: No debridement was completed today Post-Debridement Measurements and Additional Note: Post-Debridement Measurements/Treatment - Nurse 1 - General Ulcer Assessment Start: 10/14/25 11:20 Freq: Status: Active Protocol: DEYANIRA Activity Type Activity Date Activity User E-sign Co-sign Detail Recorded Client Recorded Date Recorded By Document 10/14/25 11:20 RB [id number] 10/14/25 11:22 RB 10/14/25 11:20 WC - Today's Visit Information Type of service Follow-up Visit (Physician/CASINO OPERATIONS SUPERVISOR ) Arrival Mode Wheelchair Transfer Assistance None Patient Identification Verified (Name & Yes ) Patient Requires Transmission-Based No Precautions Vital Signs Temperature (97.8 F-99.1 F) 96.1 F L Temperature Source Temporal Pulse Rate (60-100) 71 Pulse Location Monitor Respiratory Rate (12-18) 18 Respiratory rate source Observation Blood Pressure (90/60-120/80) 145/66 H Blood Pressure Mean (mm Hg) 92 Source Monitor Position Semi-Fowlers Blood Pressure Location Left Arm History Since Last Visit- (Skip if this is Patient's initial visit) Have you changed medications since your No last visit? Any new allergies or adverse reactions No Had a fall/change in ADL's that may No increase risk of falls Signs or symptoms of abuse and/or No neglect since last visit Have you been in the hospital since your No last visit? Has dressing in place as prescribed Yes Has compression in place as prescribed N/A Has offloadiing in place as prescribed N/A Experienced any changes in pain level or No management Pain Scale: 0-10 Numeric Is Patient Pain Free? Yes - Nurse 1 - General Ulcer Measurement Start: 10/14/25 11:20 Freq: Status: Active Protocol: Activity Type Activity Date Activity User E-sign Co-sign Detail Recorded Client Recorded Date Recorded By Document 10/14/25 11:20 RB [id number] 10/14/25 11:22 RB 10/14/25 11:20 Wound Center Nurse 1 1. RIGHT/LEFT BUTTOCK CLUSTER -Combined with other wound No -Current Size (cm) - Length 0.4 -Current Size (cm) - Width 0.4 -Current Size (cm) - Depth 0.1 -Total Square Cm 0.16 -Date of Last Picture (Recall this 10/14/25 field) -Photo Taken Yes -Tunneling No -Undermining/Tunneling No -Circular Undermining No -Exudate Amt Medium -Exudate Type Serosanguineous -Wound Margin Thickened -Granulation Amt Medium (34-66%) -Granulation Quality [place] -Slough/Fibrin Yes -Necrosis Amt Small (1-33%) -Necrotic Tissue Type Adherent Slough -Structure Exposed N/A -Texture (Hillary-wound Skin Appearance) Assessed, Scarring -Moisture (Hillary-wound Skin Appearance) Assessed -Color (Hillary-wound Skin Appearance) Assessed -Temperature (Hillary-wound Skin No Abnormality Appearance) (Pt Warm) -Tenderness on Palpation (Hillary-wound No Skin Appearance) -Ulcer Cleansing Wound Cleanser -Foul Odor after Cleansing No -Anesthetic Used 5% Lidocaine Gel Assessment/Plan Assessment/Plan (1) Urinary retention: CODE(S): R33.9 - Retention of urine, unspecified (2) Fecal incontinence: CODE(S): R15.9 - Full incontinence of feces QUALIFIERS: Fecal incontinence type: unspecified Qualified Code(s): R15.9 - Full incontinence of feces (3) Decubitus ulcer of buttock, stage 2: CODE(S): L89.302 - Pressure ulcer of unspecified buttock, stage 2 QUALIFIERS: Laterality: right Qualified Code(s): L89.312 - Pressure ulcer of right buttock, stage 2 PLAN: All is healed patient be discharged from the wound center and she can follow-up as needed (4) Decubitus ulcer of sacral area: CODE(S): L89.159 - Pressure ulcer of sacral region, unspecified stage QUALIFIERS: Pressure injury stage: stage 2 Qualified Code(s): L89.152 - Pressure ulcer of sacral region, stage 2 (5) Decubitus ulcer of left buttock, stage 2: CODE(S): L89.322 - Pressure ulcer of left buttock, stage 2 PLAN: Resolved
--- NOTE | 2025-10-19 09:22 | WC ---
PHOTO-RIGHT BUTTOCKS 10/14/25
== END 2025-10-18 23:59 | disposition home or self-care (01) ==
LOC: WC 10:32
PROVIDERS: PCP Internal Medicine; Referring Provider Internal Medicine; Visit Provider Nurse Practitioner
DX: Z09 Encounter for follow-up examination after completed treatment for conditions other than malignant neoplasm (principal); F03.90 Unspecified dementia, unspecified severity, without behavioral disturbance, psychotic disturbance, mood disturbance, and anxiety; R32 Unspecified urinary incontinence; R15.9 Full incontinence of feces; R33.9 Retention of urine, unspecified; Z98.890 Other specified postprocedural states
CPT/HCPCS: 99212; G0463